=== PATIENT | female | born 1940 | race Caucasian/White ===

== ENCOUNTER 2025-05-31 14:21 | Emergency (ER) | payer MEDICARE, OTHER, SELFPAY ==
[2025-05-31 14:22] VITALS: BP 124/73; PULSE 111; RESP 20; TEMP 36.4; O2SAT 99; BMI 29.7
[2025-05-31 15:22] VITALS: BP 124/82; PULSE 96; RESP 17
[2025-05-31 15:48] LABS: Hematocrit 39.4 % (37-47); Hemoglobin 12.9 g/dL (12.0-15.0); Immature Granulocytes Count 0.060 X10^3/uL (0.0-0.0); Mean Corp Hgb Conc 32.7 g/dL (32-36); Mean Corpuscular Volume 90.8 fL (81-99); Mean Platelet Vol. 10.5 fl (6.2-12.0); NRBC Flagged by Analyzer 0 % (0-5); Platelet Count 262 K/mm3 (150-450); RBC Distribution Width CV 15.5 % (11.6-14.6); RBC Distribution Width SD 51.5 fl (35.1-43.9); Red Blood Count 4.34 M/mm3 (4.2-5.4); White Blood Count 11.8 K/mm3 (4.4-11.0)
[2025-05-31 16:00] VITALS: BP 125/67; PULSE 114; RESP 22; O2SAT 98
[2025-05-31 16:25] LABS: Anion Gap 15 (5-15); BUN 35 mg/dL (4-19); BUN/Creat Ratio 37.6 RATIO (10-20); Calcium,Total 9.3 mg/dL (7.6-11.0); Carbon Dioxide 22.5 mmol/L (21.0-32.0); Chloride 101 mmol/L (98-108); Estimated Creatinine Clearance 53.40 ml/min (50-250); Glucose 220 mg/dL (70-99); Potassium 4.4 mmol/L (3.3-5.1)
[2025-05-31 17:00] VITALS: BP 110/93; PULSE 102; RESP 18; O2SAT 99
[2025-05-31 19:36] VITALS: BP 123/77; PULSE 98; RESP 18; TEMP 36.6; O2SAT 99
== END 2025-05-31 20:06 | disposition home or self-care (01) ==
PROVIDERS: Emergency Provider Emergency Medicine; PCP Internal Medicine; Visit Provider Emergency Medicine
DX: E11.649 Type 2 diabetes mellitus with hypoglycemia without coma (principal); I48.91 Unspecified atrial fibrillation; E11.22 Type 2 diabetes mellitus with diabetic chronic kidney disease; E11.40 Type 2 diabetes mellitus with diabetic neuropathy, unspecified; Z79.4 Long term (current) use of insulin; I12.9 Hypertensive chronic kidney disease with stage 1 through stage 4 chronic kidney disease, or unspecified chronic kidney disease; N18.2 Chronic kidney disease, stage 2 (mild); E03.9 Hypothyroidism, unspecified; R79.89 Other specified abnormal findings of blood chemistry; N32.81 Overactive bladder; Z79.01 Long term (current) use of anticoagulants; Z79.84 Long term (current) use of oral hypoglycemic drugs; Z79.85 Long-term (current) use of injectable non-insulin antidiabetic drugs; Z79.899 Other long term (current) drug therapy; Z79.890 Hormone replacement therapy; Z87.891 Personal history of nicotine dependence
CPT/HCPCS: 80048; 85025; 93005; 96374; 99285; A4216

== ENCOUNTER → 2025-06-01 05:00 | Outpatient (REF) | payer MEDICARE, OTHER, SELFPAY ==
--- OUTSIDE RECORDS SUMMARY | 2025-06-01 04:09 | XMS RPT_ITS | CCD ---
Author Organization [facility] Inform ion Partnership [facility] Care Team Providers Care Php Lamp Developer Name Role Phone Zandra Phan Unavailable Unavailable Jalil Cuevas Unavailable Unavailable Roca, Samuel Unavailable Unavailable Ramon, Martita E Unavailable Unavailable Lisy Pace Primary Care Provider [phone] Zandra Phan RN Unavailable Unavailable Jalil Cuevas RN Unavailable Unavailable Roca PT, Samuel Unavailable Unavailable Ramon NEAL-Cred, Martita E Unavailable Chava Pace MD, Lisy Condon Primary Care Provider Zandra Phan RN Unavailable Unavailable Jalil Cuevas RN Unavailable Unavailable Roca PT, Samuel Unavailable Unavailable Ramon MA-Cred, Martita E Unavailable Unavai talia Roca PT, Samuel Unavailable Unavailable Sanjeev MYERS, Lisy Condon Primary Care Provider Unavailable Primary Care Provider UnavailZandra Eric RN Unavailable Unavailable Jalil Cuevas RN Unavailable Unavailable Roca PT, Samuel Unavailable Unavailable Ramon MA-Cred, Martita E Unavailable Chava Pace MD, Lisy Condon Primary Care Provider Zandra Phan RN Unavailable Unavailable Jalil Cuevas RN Unavailable Unavailable Roca PT, Samuel Unavailable Unavailable Ramon MA-Cred, Martita E Unavailable Chava Pace MD, Lisy Condon Primary Care Provider LISY PACE Primary Care Unavailable NADER NAVARRO Attending Unavailable NADER NAVARRO Attending Unavailable LISY PACE Primary Care Unavailable NADER NAVARRO Attending Unavailable LISY PACE Primary Care Unavailable NADER NAVARRO Attending Unavailable PACE, LISY ALEXX Primary Care Unavailable LE, NADER RAI Attending Unavailable PACE, LISY ALEXX Primary Care Unavailable LE, NADER RAI Attending Unavailable PACE, LISY ALEXX Primary Care Unavailable PACE, LISY ALEXX Primary Care Unavailable LE, NADER RAI Attending Unavailable LE, AYSECHI BONNIE RHODESAC Attending Unavailable PACE, LISY ALEXX Primary Care Unavailable LE, NADER RHODESAC Attending Unavailable PACE, LISY ALEXX Primary Care Unavailable PACE, LISY ALEXX Primary Care Unavailable LE, NADER RAI Attending Unavailable LE, NADER RHODESAC Attending Unavailable PACE, LISY ALEXX Primary Care Unavailable IRFANI, WILL Admitting Unavailable NORBERTO RUBIO Attending Unavailable PACE, LISY ALEXX Primary Care Unavailable LE, NADER RAI Attending Unavailable PACE, LISY ALEXX Primary Care Unavailable PACE, LISY ALEXX Primary Care Unavailable LE, NADER RAI Attending Unavailable PACE, LISY ALEXX Primary Care Unavailable LE, NADER RAI Attending Unavailable PACE, LISY ALEXX Primary Care Unavailable LE, NADER RAI Attending Unavailable ESTIVEN MCFADDEN Referring Unavailable ESTIVEN MCFADDEN Attending Unavailable PACE, LISY ALEXX Primary Care Unavailable LE, NADER RAI Attending Unavailable PACE, LISY ALEXX Primary Care Unavailable PACE, LISY ALEXX Primary Care Unavailable LE, NADER RAI Attending Unavailable APCE, LISY ALEXX Referring Unavailable PACE, LSIY ALEXX Primary Care Unavailable PACE, LISY ALEXX Referring Unavailable PACE, LISY ALEXX Primary Care Unavailable LE, NADER RAI Attending Unavailable PACE, LISY ALEXX Primary Care Unavailable PACE, LISY ALEXX Primary Care Unavailable LE, NADER RAI Attending Unavailable PACE, LISY ALEXX Primary Care Unavailable LE, NADER RAI Attending Unavailable LE, AYSECHI ARRINGTON CARMELOAC Attending Unavailable PACE, LISY ALEXX Primary Care Unavailable PACE, LISY ALEXX Referring Unavailable PACE, LISY ALEXX Attending Unavailable PACE, LISY ALEXX Primary Care Unavailable LE, NADER RAI Attending Unavailable PACE, LISY ALEXX Primary Care Unavailable LE, NADER RHODESAC Attending Unavailable PACE, LISY ALEXX Primary Care Unavailable PACE, LISY ALEXX Referring Unavailable PACE, LISY ALEXX Attending Unavailable PACE, LISY ALEXX Primary Care Unavailable RADHA DE LEON Attending Unavailable PACE, LISY ALEXX Primary Care Unavailable PACE, LISY ALEXX Primary Care Unavailable PACE, LISY ALEXX Attending Unavailable PACE, LISY ALEXX Primary Care Unavailable SANDI HERNANDEZ Attending Unava ilable PACE, LISY ALEXX Primary Care Unavailable PACE, LISY ALEXX Attending Unavailable PACE, LISY ALEXX Primary Care Unavailable PACE, LISY ALEXX Attending Unavailable PACE, LISY ALEXX Attending Unavailable PACE, LISY ALEXX Primary Care Unavailable PACE, LISY ALEXX Attending Unavailable PACE, LISY ALEXX Primary Care Unavailable Unavailable [facility], [place] Primary Care Provider [phone] Depadebayo PABLO, Prasanna Attending Unavailable Deperro OLS, Prasanna Attending Unavailable Deperro OLS, Prasanna Attending Unavailable Deperro OLS, Prasanna Attending Unavailable Deperro BEV, Prasanna Attending Unavailable MARCELA, DOROTHY Primary Care Unavailable JENNIFER WALDROP Attending Unavailable MARCELA, ATHENS Primary Care Unavailable JENNIFER WALDROP Attending Unavailable MARCELA, ATHENS Primary Care Unavailable JENNIFER WALDROP Attending Unavailable DAMIAN LOZA Attending Unavailable [facility], ATHENS Primary Care Unavailable MARCELA, DOROTHY Referring Unavailable KRAIG WRIGHT Attending Unavailable ASHLEIGH ROSS Consulting Unavailable SHANE RODRIGUEZ Attending Unavailable KAROLINA COOPER Admitting Unavailable MARCELA, DOROTHY Primary Care Unavailable YOHANNES BRITTON Consulting Unavailable DENY BARTON Attending Unavailable PATEL CAN Admitting Unavailable MARCELA, DOROTHY Primary Care Unavailable MARCELA, DOROTHY Primary Care Unavailable MARIELOS BLAIR Attending Unavailable MARCELA, DOROTHY Primary Care Unavailable NALLELY ALAS Attending Unavailable MARCELA, ATHENS Primary Care Unavailable NALLELY ALAS Attending Unavailable MARCELA, ATHENS Primary Care Unavailable NALLELY ALAS Attending Unavailable MARCELA, DOROTHY Primary Care Unavailable NALLELY ALAS Attending Unavailable MARCELA, DOROTHY Primary Care Unavailable JENNIFER WALDROP Attending Unavailable MARCELA, DOROTHY Primary Care Unavailable PRISCILA LAGUERRE Attending Unavailable NALLELY ALAS Attending Unavailable NALLELY ALAS Consulting Unavailable HERMAN PEPPER Attending Unavailable FISH MONTES Admitting Unavailable DEMETRIO SHAHID Consulting Unavailable [facility] Unavailable NALLELY ALAS Attending Unavailable [facility] Unavailable EJNNIFER WALDROP Attending Unavailable [facility] Unavailable JENNIFER WALDROP Attending Unavailable ROXY AGUILAR Attending Unavailable NBA GORMAN Consulting Unavailable PATEL CAN Admitting Unavailable [facility] Unavailable BRICE MOTA Attending Unavailable JANET HOUSTON Admitting Unavailable [facility] Unavailable LAUREN CASTANON Referring Unavailable MARIELOS BLAIR Attending Unavailable Allergies Allergy Classification Reported Allergen(s) Allergy Type Date of Onset Reaction(s) Facility Adhesive Tape (2 sources) Adhesive Tape Substance Allergy 09-24-2017 [facility] (20 sources) Adhesive Tape; Translations: [ADHESIVE TAPE] Propensity to adverse reactions to drug 09-24-2017 [facility] (20 sources) Adhesive Tape Drug Allergy 09-24-2017 [facility] Medications Current Medications Medication Drug Class(es) Dates Sig (Normalized) Sig (Original) acetaminophen 325 mg / HYDROcodone bitartrate 5 mg oral tablet (9 sources) Opioid Agonist Start: 10-18-2023 take 1 tablet by mouth every eight hours as needed for pain HYDROcodone-acet aminophen (NORCO) 5-325 mg tablet Indications: Acute pain of right shoulder Take 1 Tab by mouth every 8 hours as needed for Pain 21 Tab 0 10/18/2023 Active acetaminophen 325 mg / oxyCODONE hydrochloride 5 mg oral tablet (1 source) Opioid Agonist Start: 10-19-2020 take 1 tablet by mouth every six hours as needed oxyCODONE-acetam inophen (PERCOCET) 5-325 mg tablet 1 Tab Atropine (1 source) Anticholinergic, Cholinergic Muscarinic Antagonist Start: 10-16-2020 atropine syringe 0.5 mg bisacodyL (DULCOLAX) enteric-coated tablet 5 mg (1 source) Start: 11-10-2023 bisacodyL (DULCOLAX) enteric-coated tablet 5 mg Blood Glucose Monitoring Suppl (Blood Glucose Monitor System) w/Device kit (20 sources) Start: 09-23-2024 Blood Glucose Monitoring Suppl (Blood Glucose Monitor System) w/Device kit Check glucose 3x daily 1 kit 09/23/2024 Suspended Start: 09-23-2024 Blood Glucose Monitoring Suppl (Blood Glucose Monitor System) w/Device kit Check glucose 3x daily 1 kit 09/23/2024 Active calcium carbonate 500 mg chewable tablet (1 source) Start: 10-18-2020 take 1 tablet by mouth every six hours as needed calcium carbonate (TUMS) CHEWABLE tablet 500 mg cephalexin 500 mg oral capsule (9 sources) Cephalosporin Antibacterial Start: 11-12-2023 End: 11-22-2023 take 1 capsule by mouth four times daily cephalexin (KEFLEX) 500 mg capsule Take 1 Cap by mouth four times a day for 10 days 40 Cap 0 11/12/2023 11/22/2023 Active Start: 12-09-2021 take 1 capsule by mo ut twice daily cephalexin (KEFLEX) 500 mg capsule Take 500 mg by mouth two times a day One capsule by mouth twice a day x10 days 0 12/09/2021 Active Continuous Glucose Sensor (FreeStyle Javier 3 Plus Sensor) misc (20 sources) Start: 12-24-2024 Continuous Glu cose Sensor (FreeStyle Javier 3 Plus Sensor) misc 1 each every 15 days. 2 each 12/24/2024 Suspended Start: 12-24-2024 Continuous Glu cose Sensor (FreeStyle Javier 3 Plus Sensor) misc 1 each every 15 days. 2 each 12/24/2024 Active diltiazem (CARDIZEM) 125 mg in 0.9% NaCl 125 ml addEASE (1 source) Start: 10-18-2020 diltiazem (CARDIZEM) 125 mg in 0.9% NaCl 125 ml addEASE doxycycline hyclate 100 mg oral capsule (4 sources) Tetracycline- class Drug Start: 11-12-2023 End: 11-22-2023 take 1 capsule by mouth every twelve hours doxycycline (VIBRAMYCIN) 100 mg capsule Take 1 Cap by mouth every 12 hours for 10 days 20 Cap 0 11/12/2023 11/22/2023 Active Start: 11-11-2023 doxycycline MO NOhydrate (MONODOX) capsule 100 mg empagliflozin 10 mg oral tablet (20 sources) Sodium-Glucose Cotransporter 2 Inhibitor Start: 06-29-2020 End: 08-03-2021 take 1 tablet by mouth once daily before breakfast JARDIANCE 10 mg tablet Indications: Type 2 diabetes mellitus without complication, without long-term current use of insulin (HC CODE) TAKE 1 TABLET BY MOUTH DAILY BEFORE BREAKFAST 30 Tab 11 08/03/2021 Active fluconazole 150 mg oral tablet (1 source) Azole Antifungal Start: 06-09-2021 fluconazole (DIFLUCAN) 150 mg tablet Take 1 Tab by mouth every 3 days 10 Tab 1 06/09/2021 Active FOLIC ACID/MULTIVIT-MIN/L UTEIN (CENTRUM SILVER ORAL) (20 sources) take 1 tablet by mouth once daily FOLIC ACID/MULTIVIT-MIN/ LUTEIN (CENTRUM SILVER ORAL) Take 1 Tab by mouth daily. Active take 1 tablet by mouth once chrissy y FOLIC ACID/MULTIVIT-MIN/LUTEIN (CENTRUM SILVER ORAL) Take 1 Tab by mouth daily. 0 Suspended take 1 tablet by mouth once chrissy y FOLIC ACID/MULTIVIT-MIN/LUTEIN (CENTRUM SILVER ORAL) Take 1 Tab by mouth daily. 0 Active HANDICAP PRIVILEGES TAG/STIC KER (20 sources) Start: 01-15-2023 HANDICAP PRIVI LEGES TAG/STICKER Please issue a Handicap Privileges Tag/Sticker valid from 01/15/2023 to 01/16/2028 1 Each 01/15/2023 Active Start: 01-15-2023 HANDICAP PRIVI LEGES TAG/STICKER Please issue a Handicap Privileges Tag/Sticker valid from 01/15/2023 to 01/16/2028 1 Each 0 01/15/2023 Active Start: 06-09-2021 HANDICAP PRIVI LEGES TAG/STICKER Indications: Spinal stenosis of lumbar region with neurogenic claudication Please issue a Handicap Privileges Tag/Sticker valid from 06/09/21 - 06/09/26. 1 Each 0 06/09/2021 Active ibuprofen 400 mg oral tablet (20 sources) Nonsteroidal Anti-inflammatory Drug take 1 tablet by mouth twice daily ibuprofen (MOTRIN) 400 mg tablet Take 1 Tab by mouth two times a day. 0 Active 3 ml insulin degludec 100 unt/ml / liraglutide 3.6 mg/ml pen injector (4 sources) Insulin Analog, GLP-1 Receptor Agonist insulin degludec-liraglu tide (Xultophy) 100-3.6 UNIT-MG/ML pen Inject 30 Units under the skin daily. Active insulin glargine 100 unt/ml injectable solution (20 sources) Insulin Analog Start: 025 End: inject 26 [IU] by subcutaneous injection once daily insulin glargine (Lantus) 100 UNIT/ML injection Inject 26 Units under the skin Nightly. 03/15/2025 03/15/2026 Active Start: 03-13-2025 End: 03-15-2025 inject 16 [IU] by subcutaneous injection once daily 16 Units, SubCUTAneous, Nightly, First dose (after last modification) on Sat03/13/25 at 2100 Start: 12-05-2024 End: 12-05-2025 inject 32 [IU] by subcutaneous injection once daily insulin glargine (Lantus) 100 UNIT/ML injection Inject 32 Units under the skin Nightly. 10 mL 12 12/05/2024 03/15/2025 Discontinued Start: 12-04-2024 End: 12-05-2024 30 Units, SubCUTAneous, Nigh tly, First dose (after last modification) on Sat12/04/24 at 2100, Autosub for Insulin Degludec (Tresiba) Start: 12-03-2024 End: 12-03-2024 27 Units, SubCUTAneous, Nigh tly, First dose on Sat12/03/24 at 0330, Autosub for Insulin Degludec (Tresiba) Start: 09-24-2024 End: 09-24-2024 inject 30 [IU] by subcutaneous injection once daily 30 Units, SubCUTAneous, Nightly, First dose (after last modification) on Sat09/24/24 at 2100 Start: 09-24-2024 End: 09-24-2024 inject 30 [IU] by subcutaneous injection once daily 30 Units, SubCUTAneous, Nightly, First dose (after last modification) on Sat09/24/24 at 2100 Start: 09-22-2024 End: 09-24-2024 inject 26 [IU] by subcutaneous injection once daily 26 Units, SubCUTAneous, Nightly, First dose (after last modification) on Sat09/22/24 at 2100 Start: 09-21-2024 End: 09-22-2024 inject 24 [IU] by subcutaneous injection once daily 24 Units, SubCUTAneous, Nightly, First dose (after last modification) on 09/21/24 at 2100 Start: 09-19-2024 End: 09-21-2024 inject 20 [IU] by subcutaneous injection once daily 20 Units, SubCUTAneous, Nightly, First dose (after last modification) on 09/19/24 at 2100 Start: 09-18-2024 End: 09-19-2024 inject 15 [IU] by subcutaneous injection once daily 15 Units, SubCUTAneous, Nightly, First dose on Sat09/18/24 at 2100 Start: 09-17-2024 End: 09-17-2024 inject 5 [IU] by subcutaneous injection once 5 Units, SubCUTAneous, Once, On Renee 09/17/24 at 1530, For 1 dose Start: 11-11-2023 insulin glargi ne (LANTUS) Subcutaneous INJ 25 Units Start: 11-10-2023 End: 11-11-2023 inject 20 [IU] by subcutaneous injection once daily 20 Units, Subcutaneous, DAILY, First dose on 11/10/23 at 1910, Until Discontinued Start: 10-20-2020 insulin glargi ne (LANTUS) Subcutaneous INJ 12 Units Start: 10-17-2020 End: 10-20-2020 insulin glargine (LANTUS) Subcutaneous INJ 5 Units isopropyl alcohol 0.7 ml/ml medicated pad (20 sources) Start: 09-23-2024 Alcohol Swabs (Alcohol Prep) 70 % pads 1 Pad 3 times daily. 200 each 2 09/23/2024 Active melatonin 3 mg oral tablet (11 sources) Start: 03-22-2025 End: 04-23-2025 take 1 tablet by mouth once daily as needed for sleep melatonin 3 MG tablet Take 1 tablet (3 mg) by mouth Nightly as needed for sleep. 30 tablet 03/24/2025 04/23/2025 Active Start: 03-13-2025 End: 03-15-2025 Start: 12-03-2024 End: 12-05-2024 take 3 mg by mouth once daily as needed for sleep 3 mg, Oral, Nightly PRN, sleep, Starting on Sat12/03/24 at 1719 Start: 09-21-2024 End: 09-24-2024 take 3 mg by mouth once daily as needed for sleep 3 mg, Oral, Nightly PRN, sleep, Starting on 09/21/24 at 1332 metFORMIN hydrochloride 500 mg oral tablet (20 sources) Biguanide Start: 09-23-2024 End: 09-24-2024 take 2 tablets by mouth twice daily at mealtime metFORMIN (Glucophage) 500 MG tablet Take 2 tablets (1,000 mg) by mouth 2 times daily (with meals). 60 tablet 6 09/23/2024 09/24/2024 Discontinued Start: 09-17-2024 End: 04-22-2025 take 1 tablet by mouth twice daily at mealtime metFORMIN (Glucophage) 500 MG tablet Take 1 tablet (500 mg) by mouth 2 times daily (with meals). 60 tablet 6 09/24/2024 04/22/2025 Active Start: 09-16-2023 take 2 tablets by mo uth twice daily before mealtime metFORMIN XR (GLUCOPHAGE XR) 500 mg SR-tablet 24 Hr Indications: Type 2 diabetes mellitus without complication, without long-term current use of insulin (HC CODE) Take 2 Tab by mouth twice a day before meals 360 Tab 3 09/16/2023 Active Start: 01-15-2023 take 2 tablets by mo uth twice daily before mealtime metFORMIN XR (GLUCOPHAGE XR) 500 mg SR-tablet 24 Hr Indications: Type 2 diabetes mellitus without complication, without long-term current use of insulin (HC CODE) Take 2 Tab by mouth twice a day before meals 360 Tab 3 01/15/2023 Active Start: 06-09-2021 take 2 tablets by mo uth twice daily before mealtime metFORMIN (GLUCOPHAGE XR) 500 mg SR-tablet 24 Hr Indications: Type 2 diabetes mellitus without complication, without long-term current use of insulin (HC CODE) Take 2 Tab by mouth twice a day before meals 360 Tab 3 06/09/2021 Active Start: 07-25-2020 take 2 tablets by mo uth twice daily before mealtime metFORMIN (GLUCOPHAGE XR) 500 mg SR-tablet 24 Hr Indications: Type 2 diabetes mellitus without complication, without long-term current use of insulin (HC CODE) Take 2 Tabs by mouth twice a day before meals 360 Tab 3 07/25/2020 Active Start: 06-17-2019 take 2 tablets by mo uth twice daily before mealtime metFORMIN (GLUCOPHAGE XR) 500 mg SR-tablet 24 Hr Indications: Type 2 diabetes mellitus without complication, without long-term current use of insulin ( ) Take 2 Tabs by mouth twice a day before meals 360 Tab 3 06/17/2019 Active 24 hr metoprolol succinate 50 mg extended release oral tablet (20 sources) beta-Adrenergic Roxi Start: 03-24-2025 End: 03-24-2026 take 1 tablet by mouth twice daily metoprolol succinate XL (Toprol-XL) 50 MG 24 hr tablet Take 1 tablet (50 mg) by mouth 2 times daily. Do not crush or chew. 03/24/2025 03/24/2026 Active Start: 03-21-2025 End: 03-24-2025 take 1 tablet by mouth every eight hours 25 mg, Oral, Every 8 hours, First dose (after last modification) on 03/21/25 at 1700 Start: 03-21-2025 End: 03-24-2025 5 mg, IntraVENous, Every 5 m in PRN, tachycardia, sustained HR >120, message attending prior to administration, Starting on 03/21/25 at 1518 Start: 03-13-2025 End: 05-14-2025 take 25 mg by mouth twice daily 25 mg, Oral, 2 times d aily, First dose on Sat03/20/25 at 2100 Start: 03-13-2025 End: 03-15-2025 Start: 03-12-2025 take 25 mg by mouth once 25 mg , Oral, Once, On Sat03/12/25 at 1635, For 1 dose Start: 01-26-2025 End: 02-02-2025 take 5 mg intravenously every six hours as needed 5 mg, IntraVENous, Every 6 hours PRN, tachycardia, sustained HR >130, Starting on Tu01/26/25 at 1240 Start: 01-25-2025 End: 01-26-2025 5 mg, IntraVENous, Every 5 m in PRN, tachycardia, Starting on 01/25/25 at 2355, For 3 doses Start: 12-03-2024 End: 12-03-2024 5 mg, IntraVENous, Once, On Renee 12/03/24 at 0315, For 1 dose Start: 10-18-2020 End: 10-18-2020 metoprolol tartrate (LOPRESS OR) intravenous solution 2.5 mg ondansetron (ZOFRAN ODT) RAPID DISSOLVING tablet 4 mg (2 sources) Start: 11-10-2023 take 1 tablet by mouth every six hours as needed ondansetron (ZOFRAN ODT) RAPID DISSOLVING tablet 4 mg Start: 10-16-2020 take 1 tablet by [facility] every six hours as needed ondansetron (ZOFRAN ODT) RAPID DISSOLVING tablet 4 mg oxyCODONE hydrochloride 5 mg oral tablet (20 sources) Opioid Agonist Start: 03-24-2025 End: 03-29-2025 take 0.5 tablet by mouth every four hours as needed for pain oxyCODONE (Roxicodone) 5 MG immediate release tablet Indications: Closed fracture of left hip, initial encounter ([facility]) Take 0.5 tablets (2.5 mg) by mouth every 4 hours as needed for moderate pain (4-6) for up to 5 days. 15 tablet 03/24/2025 03/29/2025 Active Start: 03-20-2025 End: 03-24-2025 take 1 tablet by mouth every four hours as needed for pain oxyCODONE (Roxicodone) immediate release tablet 2.5 mg Start: 10-21-2020 take 2 tablets by mo [facility] every six hours as needed oxyCODONE (ROXICODONE) 5 mg tablet Indications: Pain Take 2 Tab by mouth every 6 hours as needed 12 Tab 0 10/21/2020 Active semaglutide (Ozempic) 2 MG/3ML solution pen-injector (20 sources) Start: 12-24-2024 End: 12-24-2025 inject 0.5 mg by subcutaneous injection every week semaglutide (Ozempic) 2 MG/3ML solution pen-injector Inject 0.5 mg under the skin 1 (one) time per week. 3 mL 12/24/2024 12/24/2025 Suspended Start: 12-24-2024 End: 12-24-2025 inject 0.5 mg by subcutaneous injection every week semaglutide (Ozempic) 2 MG/3ML solution pen-injector Inject 0.5 mg under the skin 1 (one) time per week. 3 mL 12/24/2024 12/24/2025 Active terbinafine 250 mg oral tablet (15 sources) Allylamine Antifungal Start: 06-28-2021 take 1 tablet by mouth once daily terbinafine HCL (LAMISIL) 250 mg tablet Take 1 Tab by mouth daily 5 Tab 1 06/28/2021 Active vitamin b12 1 mg oral tablet (5 sources) Vitamin B12 Start: 03-24-2025 End: 04-23-2025 take 1 tablet by mouth once daily cyanocobalamin (Vitamin B-12) 1000 MCG tablet Take 1 tablet (1,000 mcg) by mouth daily. 30 tablet 03/24/2025 04/23/2025 Active Completed/Discontinued Medications Medication Drug Class(es) Dates Sig (Normalized) Sig (Original) acetaminophen 500 mg oral tablet (20 sources) Start: 03-22-2025 End: 03-24-2025 1,000 mg, Oral, 3 times daily, First dose on Sat03/22/25 at 2115, Maximum dose of acetaminophen is 4000 mg from all sources in 24 hours. Start: 03-21-2025 End: 03-21-2025 IntraVENous, Administer over 15 Minutes, As needed, Starting on Sat03/21/25 at 0823, Anesthesia Intraprocedure Start: 03-13-2025 End: 03-15-2025 take 1 tablet by mouth every six hours as needed for pain and fever acetaminophen (Tylenol) tablet 650 mg Start: 01-26-2025 End: 02-02-2025 take 1 tablet by mouth every six hours as needed for pain and fever acetaminophen (Tylenol) tablet 650 mg Start: 01-26-2025 End: 01-26-2025 500 mg, Oral, Once, On Sat at 0235, For 1 dose, Maximum dose of acetaminophen is 4000 mg from all sources in 24 hours. Start: 01-25-2025 End: 01-26-2025 650 mg, Oral, Once, On Sat at 2355, For 1 dose, Maximum dose of acetaminophen is 4000 mg from all sources in 24 hours. Start: 12-03-2024 End: 12-05-2024 take 1 tablet by mouth every six hours as needed for pain and fever acetaminophen (Tylenol) tablet 650 mg Start: 09-18-2024 End: 09-24-2024 take 1 tablet by mouth every six hours as needed for pain and fever acetaminophen (Tylenol) tablet 650 mg Start: 11-10-2023 take 1 tablet by pavel th every four hours as needed acetaminophen (TYLENOL) tablet 650 mg Start: 10-16-2020 take 1 tablet by pavel th every four hours as needed 650 mg, Oral, EVERY 4 HOURS PRN, Starting 10/16/20 at 0257, Until Discontinued, Mild Pain, Headache Start: 11-04-2017 take 2 tablets by mo uth every four hours as needed acetaminophen (TYLENOL) 325 mg tablet Take 2 Tabs by mouth every 4 hours as needed. 60 Tab 0 11/04/2017 Active 20 ml albumin human, halfway 250 mg/ml injection (4 sources) Human Serum Albumin Start: 03-21-2025 End: 03-21-2025 25 g, IntraVENous, at 120 mL/hr, PRN, x 2 doses, Starting on 03/21/25 at 0954, For 2 doses, Recovery (only), Infusion rate depends on indication and clinical situation. In emergencies, may administer as rapidly as necessary to improve clinical condition. After initial volume replacement: 25%: Do not exceed 1 mL/minute (60 mL/hr) in patients with normal plasma volume; 2 to 3 mL/minute (120 to 180 mL/hr) in patients with hypoproteinemia Start: 03-21-2025 End: 03-21-2025 Starting on 03/21/25 at 0 951, For 1 dose, Trung Orellana: act override amLODIPine 5 mg oral tablet (20 sources) Dihydropyridine Calcium Channel Roxi Start: 01-15-2023 End: 12-24-2024 take 5 mg by mouth once daily 5 mg, Oral, Daily, First dose on Sat09/18/24 at 1855 Start: 06-09-2021 take 1 tablet by pavel th once daily amLODIPine (NORVASC) 2.5 mg tablet Take 1 Tab by mouth daily 90 Tab 3 06/09/2021 Active Start: 06-17-2019 End: 10-21-2020 take 1 tablet by mouth once daily in the morning amLODIPine (NORVASC) 2.5 mg tablet Indications: hypertension Take 1 Tab by mouth daily AM 90 Tab 3 06/29/2020 10/21/2020 Discontinued amoxicillin 875 mg / clavulanate 125 mg oral tablet (9 sources) Penicillin-class Antibacterial Start: 02-01-2025 End: 02-01-2025 take 1 tablet by mouth twice daily amoxicillin-clavulanate (Augmentin) 875-125 MG tablet Take 1 tablet by mouth 2 times daily for 11 days. 02/01/2025 02/01/2025 Discontinued (Stop taking at discharge) Start: 06-22-2021 End: 07-02-2021 take 1 tablet by mouth twice daily amoxicillin-potassium clavulanate (AUGMENTIN) 875-125 mg tablet Indications: CELLULITIS / SSTI Take 1 Tab by mouth two times a day for 10 days 20 Tab 0 06/22/2021 07/02/2021 Start: 10-21-2020 take 1 tablet by pavel th every twelve hours amoxicillin-potassium clavulanate (AUGMENTIN) 875-125 mg tablet Indications: CELLULITIS / SSTI Take 1 Tab by mouth every 12 hours 20 Tab 0 10/21/2020 Active Start: 10-21-2020 amoxicillin-po tassium clavulanate (AUGMENTIN) 875-125 mg tablet 1 Tab Start: 03-24-2020 take 1 tablet by pavel th twice daily amoxicillin-potassium clavulanate (AUGMENTIN) 875-125 mg tablet Indications: CELLULITIS / SSTI Take 1 Tab by mouth two times a day 20 Tab 0 03/24/2020 Active ampicillin-sulbactam (Unasyn) 3,000 mg in sodium chloride 0.9 % 100 mL IVPB (Add-[place]) (2 sources) Start: 01-27-2025 End: 02-02-2025 take 3000 mg intravenously every six hours 3,000 mg, IntraVENous, at 200 mL/hr, Administer over 30 Minutes, Every 6 hours, First dose on Sat01/27/25 at 1315, For 26 doses, ADD-[place] bag, Suspected Indication (Select all that apply): Surgical Site Infection apixaban 5 mg oral tablet (20 sources) Factor Xa Inhibitor Start: 03-21-2025 End: 03-24-2025 take 5 mg by mouth twice daily 5 mg, Oral, 2 times daily, First dose on Sat03/21/25 at 2100, Anticoagulant Start: 03-13-2025 End: 03-15-2025 take 5 mg by mouth twice daily 5 mg, Oral, 2 times nikia ly, First dose on 03/13/25 at 0020, Anticoagulant Start: 01-26-2025 End: 02-02-2025 take 5 mg by mouth twice daily 5 mg, Oral, 2 times nikia ly, First dose on Tu01/26/25 at 1000, Anticoagulant Start: 12-03-2024 End: 12-05-2024 take 5 mg by mouth twice daily 5 mg, Oral, 2 times nikia ly, First dose on [place]ene[place] 12/03/24 at 0900, Anticoagulant Start: 10-07-2020 End: 09-24-2024 take 5 mg by mouth twice daily 5 mg, Oral, 2 times nikia ly, First dose on Sat09/18/24 at 2100, Anticoagulant aspirin 81 mg delayed release oral tablet (20 sources) Platelet Aggregation Inhibitor, Nonsteroidal Anti-inflammatory Drug Start: 10-16-2020 End: 10-18-2020 take 81 mg by mouth once daily 81 mg, Oral, DAILY, First dose on Sat10/16/20 at 0900, Until Discontinued atenolol 25 mg oral tablet (20 sources) beta-Adrenergic Roxi Start: 12-05-2024 End: 03-15-2025 take 1 tablet by mouth twice daily atenolol (Tenormin) 25 MG tablet Take 1 tablet (25 mg) by mouth 2 times daily. 60 tablet 12/05/2024 03/15/2025 Discontinued (Stop taking at discharge) Start: 09-18-2024 End: 09-24-2024 take 50 mg by mouth once daily 50 mg, Oral, Daily, Fir st dose on Sat09/18/24 at 1855 Start: 11-10-2023 take 50 mg by mouth twice chrissy y 50 mg, Oral, TWO TIMES A DAY, First dose on Sat11/10/23 at 2000, Until Discontinued Start: 10-17-2020 take 1 tablet by pavel th every twelve hours atenoloL (TENORMIN) 25 mg tablet Indications: hypertension , Ventricular Rate Control in Atrial Fibrillation Take 1 Tab by mouth every 12 hours 60 Tab 1 10/21/2020 Active Start: 06-17-2019 End: 12-05-2024 take 50 mg by mouth twice daily 50 mg, Oral, 2 times d kerryy First dose on [place]ene[place] 12/03/24 at 0315 atorvastatin 20 mg oral tablet (20 sources) HMG-CoA Reductase Inhibitor Start: 09-16-2023 End: 02-02-2025 take 40 mg by mouth once daily 40 mg, Oral, Daily, First dose on [facility] 12/03/24 at 0900 Start: 06-17-2019 End: 03-24-2025 take 20 mg by mouth once daily 20 mg, Oral, Nightly, F irst dose on [facility] 03/20/25 at 2100 5 ml bupivacaine hydrochloride 5 mg/ml injection (2 sources) Amide Local Anesthetic Start: 03-20-2025 End: 03-20-2025 10 mL, Other, Once, On [facility] 03/20/25 at 1400, For 1 dose, Infiltration calcium chloride 0.0014 meq/ml / potassium chloride 0.004 meq/ml / sodium chloride 0.103 meq/ml / sodium lactate 0.028 meq/ml injectable solution (13 sources) Start: 03-21-2025 End: 03-21-2025 500 mL, IntraVENous, at 250 mL/hr, Administer over 2 Hours, Once, On [place] 03/21/25 at 1845, For 1 dose Start: 03-21-2025 End: 03-22-2025 take 75 mL intravenously every hour 75 mL/hr, IntraVENous, Continuous, Starting on [place] 03/21/25 at 1845, For 1 day Start: 03-21-2025 End: 03-21-2025 IntraVENous, Continuous PRN, Starting on [place] 03/21/25 at 0746, Anesthesia Intraprocedure Start: 03-20-2025 End: 03-20-2025 1,000 mL, IntraVENous, at 50 0 mL/hr, Administer over 2 Hours, Once, On [facility] 03/20/25 at 1515, For 1 dose Start: 09-17-2024 End: 09-17-2024 1,000 mL, IntraVENous, at 50 0 mL/hr, Administer over 2 Hours, Once, On [facility] 09/17/24 at 1310, For 1 dose Start: 10-16-2020 End: 10-16-2020 1,000 mL, Intravenous, ONCE, 1 dose, [place] 10/16/20 at 0305, at 500 mL/hr ceFAZolin 1000 mg injection (2 sources) Cephalosporin Antibacterial Start: 03-21-2025 End: 03-21-2025 IntraVENous, As needed, Starting on Sat03/21/25 at 0800, Anesthesia Intraprocedure Start: 11-11-2023 ceFAZolin (ANC EF) 2 g in Dextrose 50 ml IVPB (PREMIX) ceFAZolin (Ancef) 2,000 mg in sodium chloride 0.9 % 100 mL IVPB (2 sources) Start: 03-21-2025 End: 03-21-2025 take 2000 mg intravenously every eight hours 2,000 mg, IntraVENous, at 200 mL/hr, Administer over 30 Minutes, Every 8 hours, First dose on Sat03/21/25 at 1600, For 24 hours, Phase II/On Unit, Mini-Bag Plus bag, Suspected Indication (Select all that apply): Surgical Prophylaxis cefepime 2000 mg injection (2 sources) Cephalosporin Antibacterial Start: 11-11-2023 End: 11-11-2023 2 g, Intravenous, at 12.5 mL/hr, Administer over 240 Minutes, EVERY 12 HOURS, First dose on Sat11/11/23 at 0900, Until Discontinued, Indications: CELLULITIS / SSTI Start: 10-19-2020 End: 10-21-2020 cefepime (MAXIPIME) 1 g in D 5W 50 ml DUPLEX cefTRIAXone 2000 mg injection (2 sources) Cephalosporin Antibacterial Start: 11-10-2023 End: 11-10-2023 cefTRIAXone (ROCEPHIN) 2 g in D5W 50 ml IVPB (PREMIX) Start: 10-16-2020 End: 10-18-2020 2 g, Intravenous, at 100 mL/ hr, Administer over 30 Minutes, DAILY, First dose on Sat10/16/20 at 0900, Until Discontinued, Indications: CELLULITIS / SSTI cefTRIAXone (Rocephin) 1,000 mg in sodium chloride 0.9 % 50 mL IVPB Mini-Bag Plus (10 sources) Start: 01-26-2025 End: 01-26-2025 1,000 mg, IntraVENous, at 10 0 mL/hr, Administer over 30 Minutes, Once, On Sat01/26/25 at 0000, For 1 dose, Mini-Bag Plus bag, Suspected Indication (Select all that apply): Urinary Tract Infection Start: 12-03-2024 End: 12-05-2024 1,000 mg, IntraVENous, at 10 0 mL/hr, Administer over 30 Minutes, Every 24 hours, First dose on Sat12/03/24 at 2200, Mini-Bag Plus bag, Suspected Indication (Select all that apply): Urinary Tract Infection Start: 12-02-2024 End: 12-02-2024 1,000 mg, IntraVENous, at 10 0 mL/hr, Administer over 30 Minutes, Once, On Sat12/02/24 at 2225, For 1 dose, Mini-Bag Plus bag, Suspected Indication (Select all that apply): Urinary Tract Infection Start: 09-19-2024 End: 09-21-2024 1,000 mg, IntraVENous, at 10 0 mL/hr, Administer over 30 Minutes, Every 24 hours, First dose on Sat09/19/24 at 1800, Mini-Bag Plus bag, Suspected Indication (Select all that apply): Urinary Tract Infection Start: 09-18-2024 End: 09-18-2024 1,000 mg, IntraVENous, at 10 0 mL/hr, Administer over 30 Minutes, Once, On Sat09/18/24 at 1735, For 1 dose, Mini-Bag Plus bag, Suspected Indication (Select all that apply): Urinary Tract Infection cefTRIAXone (Rocephin) 2,000 mg in sodium chloride 0.9 % 50 mL IVPB Mini-Bag Plus (2 sources) Start: 01-26-2025 End: 01-26-2025 2,000 mg, IntraVENous, at 100 mL/hr, Administer over 30 Minutes, Every 24 hours, First dose on Sat01/26/25 at 1100, For 5 days, Mini-Bag Plus bag, Suspected Indication (Select all that apply): Skin and Soft Tissue Infection cholecalciferol 0.025 mg oral tablet (2 sources) Vitamin D Start: 12-05-2024 End: 12-05-2024 take 2000 [IU] by mouth once daily 2,000 Units, Oral, Daily, First dose on Sat12/05/24 at 0900 cholecalciferol 9.52 unt/ml / glucose 357 mg/ml oral gel (12 sources) Vitamin D Start: 03-20-2025 End: 03-24-2025 Start: 03-13-2025 End: 03-15-2025 Start: 01-26-2025 End: 02-02-2025 Start: 12-03-2024 End: 12-05-2024 Start: 09-18-2024 End: 09-24-2024 15 g, Oral, As needed, low b lood sugar, Starting on Sat09/18/24 at 1854, If blood glucose less than 50 mg/dL and patient ALERT and NOT NPO, give 2 tubes glucose gel. If blood glucose less than 70 mg/dL and patient ALERT and NOT NPO, give 1 tube glucose gel. Repeat blood glucose in 15 minutes. If blood glucose is less than 70 mg/dL, repeat treatment and recheck blood glucose in 15 minutes x2 and notify provider. Start: 09-17-2024 End: 09-17-2024 15 g, Oral, As needed, low b lood sugar, Starting on [place] 09/17/24 at 1309, If blood glucose less than 50 mg/dL and patient ALERT and NOT NPO, give 2 tubes glucose gel. If blood glucose less than 70 mg/dL and patient ALERT and NOT NPO, give 1 tube glucose gel. Repeat blood glucose in 15 minutes. If blood glucose is less than 70 mg/dL, repeat treatment and recheck blood glucose in 15 minutes x2 and notify provider. ciprofloxacin 250 mg oral tablet (15 sources) Quinolone Antimicrobial End: 02-02-2025 take 1 tablet by mouth twice daily ciprofloxacin (Cipro) 250 MG tablet Take 250 mg by mouth 2 times daily. 02/02/2025 Discontinued (Stop taking at discharge) 50 ml clindamycin 12 mg/ml injection (1 source) Lincosamide Antibacterial Start: 10-16-2020 End: 10-17-2020 clindamycin (CLEOCIN) 600 mg in D5W 50 ml IVPB (premix) 1 ml dexamethasone phosphate 10 mg/ml injection (1 source) Corticosteroid Start: 03-21-2025 End: 03-21-2025 IntraVENous, As needed, Starting on 03/21/25 at 0750, Anesthesia Intraprocedure dexmedeTOMIDine HCl in NaCl (Precedex) injection (1 source) Start: 03-21-2025 End: 03-21-2025 IntraVENous, As needed, Starting on Sat03/21/25 at 0747, Anesthesia Intraprocedure docusate sodium 50 mg / sennosides, halfway 8.6 mg oral tablet (1 source) Start: 10-16-2020 take 2 tablets by mouth at bedtime 2 Tab, Oral, AT BEDTIME, First dose on 10/16/20 at 2200, Until Discontinued 0.5 ml dulaglutide 3 mg/ml auto-injector (20 sources) GLP-1 Receptor Agonist Start: 09-16-2023 End: 11-12-2023 dulaglutide (TRULICITY) 1.5 mg/0.5 mL Pen Injector injection Indications: Type 2 diabetes mellitus without complication, without long-term current use of insulin (HC CODE) Inject 0.5 mL subcutaneously every 7 days 2 mL 09/16/2023 11/12/2023 Discontinued Start: 01-15-2023 dulaglutide (T RULICITY) 0.75 mg/0.5 mL Pen Injector Indications: Type 2 diabetes mellitus without complication, without long-term current use of insulin (HC CODE) Inject 0.5 mL subcutaneously every 7 days 2 mL 01/15/2023 Active 1 ml ePHEDrine sulfate 50 mg/ml injection (3 sources) alpha-Adrenergic Agonist, beta-Adrenergic Agonist, Norepinephrine Releasing Agent Start: 03-21-2025 End: 03-21-2025 inject 25 mg by intramuscular injection once 25 mg, IntraMUSCular, Once, On 03/21/25 at 1100, For 1 dose, Recovery (only) Start: 03-21-2025 End: 03-21-2025 IntraVENous, As needed, Star ting on 03/21/25 at 0809, Anesthesia Intraprocedure 1 ml EPINEPHrine 1 mg/ml injection (1 source) alpha-Adrenergic Agonist, beta-Adrenergic Agonist, Catecholamine Start: 03-21-2025 End: 03-21-2025 Spinal, As needed, Starting on 03/21/25 at 0800, Anesthesia Intraprocedure ergocalciferol 1.25 mg oral capsule (20 sources) Provitamin D2 Compound Start: 10-01-2024 End: 11-13-2024 take 1 capsule by mouth every week ergocalciferol (Vitamin D2) 1.25 MG (87501 UT) capsule Take 1 capsule (1.25 mg) by mouth 1 (one) time per week for 7 doses. 4 capsule 1 10/01/2024 11/13/2024 Start: 09-24-2024 End: 09-24-2024 take 1.25 mg by mouth every week 1.25 mg, Oral, Weekly , First dose on Sat09/24/24 at 0900, For 8 doses fenofibrate 160 mg oral tablet (20 sources) Peroxisome Proliferator Receptor alpha Agonist Start: 11-11-2023 take 145 mg by mouth once daily 145 mg, Oral, DAILY, First dose on Sat11/11/23 at 0900, Until Discontinued Start: 10-16-2020 take 145 mg by mouth once daily 145 mg, Oral, DAILY, First dose on Sat10/16/20 at 0900, Until Discontinued Start: 06-17-2019 End: 02-02-2025 160 mg, Oral, Daily, First d ose on Sat12/03/24 at 0900, Substituted for Fenofibrate (Non-Formulary Dose). fluticasone propionate 0.05 mg/actuat metered dose nasal spray (20 sources) Corticosteroid Start: 10-16-2020 take 2 spray(s) nasal route once daily 2 Amma, Each Nostril, DAILY, First dose on Sat10/16/20 at 0900, Until Discontinued gabapentin 300 mg oral capsule (20 sources) Anti-epileptic Agent Start: 03-20-2025 End: 03-24-2025 take 300 mg by mouth twice daily 300 mg, Oral, 2 times daily, First dose on Sat03/20/25 at 2100 Start: 03-13-2025 End: 03-15-2025 take 300 mg by mouth twice daily 300 mg, Oral, 2 times daily, First dose on Sat03/13/25 at 0020 Start: 01-26-2025 End: 02-02-2025 take 300 mg by mouth twice daily 300 mg, Oral, 2 times daily, First dose on Sat01/26/25 at 1000 Start: 12-03-2024 End: 12-05-2024 take 300 mg by mouth twice daily 300 mg, Oral, 2 times daily, First dose on Sat12/03/24 at 2100 Start: 12-02-2024 take 300 mg by mouth once 300 mg, Oral, Once, On Sat12/02/24 at 2350, For 1 dose Start: 02-14-2021 End: 02-13-2025 take 300 mg by mouth twice daily 300 mg, Oral, 2 times daily, First dose on Sat09/18/24 at 2100 Start: 05-03-2020 take 1 capsule by mo [facility] three times daily gabapentin (NEURONTIN) 300 mg capsule Indications: Neuropathic Pain , Postoperative Acute Pain Take 1 Cap by mouth three times a day 270 Cap 1 05/03/2020 Active Start: 06-17-2019 take 1 capsule by mo ut three times daily gabapentin (NEURONTIN) 300 mg capsule Indications: Neuropathic Pain , Postoperative Acute Pain Take 1 Cap by mouth three times a day 270 Cap 1 06/17/2019 Active gadopiclenol (Vueway) injection 10 mL (2 sources) Start: 01-27-2025 End: 01-27-2025 take 10 mL intravenously once as needed 10 mL, IntraVENous, IMG once PRN, contrast, Starting on Sat01/27/25 at 1832, For 1 dose gadopiclenol (Vueway) injection 9.5 mL (2 sources) Start: 01-26-2025 End: 01-26-2025 take 9.5 mL intravenously once as needed 9.5 mL, IntraVENous, IMG once PRN, contrast, Starting on Sat01/26/25 at 1633, For 1 dose glimepiride 4 mg oral tablet (20 sources) Sulfonylurea Start: 09-23-2024 End: 09-24-2024 take 1 tablet by mouth twice daily glimepiride (Amaryl) 4 MG tablet Take 1 tablet (4 mg) by mouth 2 times daily. 60 tablet 3 09/23/2024 09/24/2024 Discontinued (Stop taking at discharge) Start: 09-16-2023 take 1 tablet by pavel th twice daily glimepiride (AMARYL) 4 mg tablet Indications: Type 2 diabetes mellitus without complication, without long-term current use of insulin (HC CODE) Take 1 Tab by mouth two times a day 180 Tab 3 09/16/2023 Active Start: 01-15-2023 take 1 tablet by pavel th twice daily glimepiride (AMARYL) 4 mg tablet Indications: Type 2 diabetes mellitus without complication, without long-term current use of insulin (HC CODE) Take 1 Tab by mouth two times a day 180 Tab 3 01/15/2023 Active Start: 01-02-2022 take 1 tablet by pavel th twice daily glimepiride (AMARYL) 4 mg tablet Indications: Type 2 diabetes mellitus without complication, without long-term current use of insulin (HC CODE) Take 1 Tab by mouth two times a day 180 Tab 3 01/02/2022 Active Start: 02-14-2021 take 1 tablet by pavel th twice daily glimepiride (AMARYL) 4 mg tablet Indications: Type 2 diabetes mellitus without complication, without long-term current use of insulin (HC CODE) Take 1 Tab by mouth two times a day 180 Tab 3 02/14/2021 Active Start: 01-15-2020 take 1 tablet by pavel th twice daily glimepiride (AMARYL) 4 mg tablet Indications: Type 2 diabetes mellitus without complication, without long-term current use of insulin (HC CODE) Take 1 Tab by mouth two times a day 180 Tab 3 01/15/2020 Active End: 10-15-2024 take 1 tablet by mouth once daily before breakfast glimepiride (Amaryl) 4 MG tablet Take 4 mg by mouth every morning (before breakfast). 09/24/2024 Discontinued (Stop taking at discharge) glucagon (rdna) 1 mg injecti on (14 sources) Antihypoglycemic Agent Start: 03-20-2025 End: 03-24-2025 Start: 03-13-2025 End: 03-15-2025 Start: 01-26-2025 End: 02-02-2025 Start: 12-03-2024 End: 12-05-2024 Start: 09-18-2024 End: 09-24-2024 1 mg, IntraMUSCular, PRN, lo w blood sugar, Blood glucose less than 70 mg/dL and patient NOT ALERT or NPO and does not have IV access., Starting on Sat09/18/24 at 1854, After administration, attempt intravenous access and start D5W at 100 mL/hr. Repeat blood glucose in 15 minutes x2 and notify provider. Start: 09-17-2024 End: 09-17-2024 1 mg, IntraMUSCular, PRN, lo w blood sugar, Blood glucose less than 70 mg/dL and patient NOT ALERT or NPO and does not have IV access., Starting on Sat09/17/24 at 1309, After administration, attempt intravenous access and start D5W at 100 mL/hr. Repeat blood glucose in 15 minutes x2 and notify provider. Start: 11-10-2023 1 mg, Subcutan eous, PRN- NEEDED, Starting on 11/10/23 at 1901, Until Discontinued, hypoglycemia Start: 10-16-2020 1 mg, Subcutan eous, PRN- NEEDED, Starting 10/16/20 at 0257, Until Discontinued, hypoglycemia 50 ml glucose 50 mg/ml injec tion (20 sources) Start: 03-20-2025 End: 03-24-2025 Start: 03-20-2025 End: 03-24-2025 Start: 03-13-2025 End: 03-15-2025 Start: 03-13-2025 End: 03-15-2025 Start: 01-26-2025 End: 02-02-2025 Start: 01-26-2025 End: 02-02-2025 Start: 12-03-2024 End: 12-05-2024 Start: 12-03-2024 End: 12-05-2024 Start: 09-18-2024 End: 09-24-2024 100 mL/hr, IntraVENous, PRN, Blood sugar less than 70mg/dL, Starting on Sat09/18/24 at 1854, Start infusion following administration of dextrose 50% or glucagon. Start: 09-18-2024 End: 09-24-2024 12.5 g, IntraVENous, PRN, lo w blood sugar, Blood glucose less than 70 mg/dL and patient NOT ALERT or NPO., Starting on Sat09/18/24 at 1854, If patient does not respond within 5 minutes, repeat dose x1. Start D5W at 100 mL/hour until ordering provider can be reached. Repeat blood glucose in 15 minutes. If blood glucose is less than 70 mg/dL, repeat treatment and recheck blood glucose in 15 minutes x2. If using Glucostabilizer, dose as instructed per system. Start: 09-17-2024 End: 09-17-2024 12.5 g, IntraVENous, PRN, lo w blood sugar, Blood glucose less than 70 mg/dL and patient NOT ALERT or NPO., Starting on [place] 09/17/24 at 1309, If patient does not respond within 5 minutes, repeat dose x1. Start D5W at 100 mL/hour until ordering provider can be reached. Repeat blood glucose in 15 minutes. If blood glucose is less than 70 mg/dL, repeat treatment and recheck blood glucose in 15 minutes x2. If using Glucostabilizer, dose as instructed per system. Start: 09-17-2024 End: 09-17-2024 100 mL/hr, IntraVENous, PRN, Blood sugar less than 70mg/dL, Starting on [place] 09/17/24 at 1309, Start infusion following administration of dextrose 50% or glucagon. Start: 11-10-2023 15 g Carb, Ora l, PRN- NEEDED, Starting on 11/10/23 at 1901, Until Discontinued, other, hypoglycemia Start: 11-10-2023 5-12.5 g, IV P ush, PRN- NEEDED, Starting on 11/10/23 at 1901, Until Discontinued, other, hypoglycemia Start: 10-16-2020 37.5 g, Oral, PRN- NEEDED, Starting 10/16/20 at 0257, Until Discontinued, other, hypoglycemia Start: 10-16-2020 5-12.5 g, IV P ush, PRN- NEEDED, Starting 10/16/20 at 0257, Until Discontinued, other, hypoglycemia 1 ml HYDROmorphone hydrochloride 1 mg/ml cartridge (2 sources) Opioid Agonist Start: 03-22-2025 End: 03-24-2025 take 0.25 mg intravenously every four hours as needed 0.25 mg, IntraVENous, Every 4 hours PRN, breakthrough, Starting on Sat03/22/25 at 2112, If oral and IV narcotics ordered, use oral first and only use IV if oral is ineffective or cannot take oral. Do Not give oral and IV within 1 hour of each other unless specifically ordered. 3 ml insulin degludec 100 unt/ml pen injector (20 sources) Insulin Analog Start: 09-24-2024 End: 09-24-2025 insulin degludec (Tresiba FlexTouch) 100 UNIT/ML injection Inject 30 Units under the skin Nightly. 30 mL 3 09/24/2024 12/05/2024 Discontinued (Stop taking at discharge) Start: 09-23-2024 End: 09-23-2024 insulin degludec (Tresiba Fl exTouch) 100 UNIT/ML injection Inject 26 Units under the skin Nightly. 3 mL 12 09/23/2024 09/23/2024 Discontinued (Stop taking at discharge) insulin lispro 100 unt/ml injectable solution (20 sources) Insulin Analog Start: 01-26-2025 End: 02-01-2026 inject 8 [IU] by subcutaneous injection three times daily at mealtime Insulin Lispro (Humalog) 100 UNIT/ML solution injection Inject 8 Units under the skin 3 times daily (with meals). 02/01/2025 03/15/2025 Discontinued (Stop taking at discharge) Start: 01-26-2025 End: 01-28-2025 inject 5 [IU] by subcutaneous injection three times daily at mealtime 5 Units, SubCUTAneous, 3 times daily with meals, First dose on Sat01/26/25 at 1200, Give 5 units prior to breakfast, 5 units prior to lunch, and 5 units prior to dinner, only when tray is in room and patient eating 50% of meal. If meal intake is uncertain then immediate post meal injection is acceptable. Give prior to bolus tube feedings. Hold if patient is NPO or if pre-meal blood glucose is less than or equal to 70 mg/dL. Start: 12-05-2024 End: 12-05-2025 inject 12 [IU] by subcutaneous injection three times daily at mealtime Insulin Lispro (Humalog) 100 UNIT/ML solution injection Inject 12 Units under the skin 3 times daily (with meals). 10 mL 12 12/05/2024 12/24/2024 Discontinued (Med list cleanup) Start: 12-03-2024 End: 12-05-2024 inject 6 [IU] by subcutaneous injection three times daily at mealtime 0-6 Units, SubCUTAneous, 3 times daily with meals, First dose on Sat12/03/24 at 1700, Low dose sliding scale 0-150 give scheduled units - no extra 151-200 give 1 extra unit 201-250 give 2 extra units 251-300 give 3 extra units 301-350 give 4 extra units 351-400 give 5 extra units 401-450 give 6 extra units units and call office Start: 12-03-2024 End: 12-04-2024 inject 8 [IU] by subcutaneous injection three times daily at mealtime 8 Units, SubCUTAneous, 3 times daily with meals, First dose on Sat12/03/24 at 1700 Start: 12-03-2024 inject 6 [IU] by sub cutaneous injection once 6 Units, SubCUTAneous, Once, On Sat12/03/24 at 0330, For 1 dose Start: 09-21-2024 End: 09-24-2024 inject 16 [IU] by subcutaneous injection three times daily at mealtime 16 Units, SubCUTAneous, 3 times daily with meals, First dose (after last modification) on Sat09/22/24 at 1700 Start: 09-21-2024 End: 09-22-2024 inject 10 [IU] by subcutaneous injection three times daily at mealtime 10 Units, SubCUTAneous, 3 times daily with meals, First dose on Sat09/21/24 at 1700 Start: 09-21-2024 End: 09-21-2024 inject 10 [IU] by subcutaneous injection three times daily at mealtime 10 Units, SubCUTAneous, 3 times daily with meals, First dose (after last modification) on Sat09/21/24 at 1200 Start: 09-19-2024 End: 09-21-2024 inject 8 [IU] by subcutaneous injection three times daily at mealtime 8 Units, SubCUTAneous, 3 times daily with meals, First dose (after last modification) on Sat09/19/24 at 0800 Start: 11-12-2023 End: 11-12-2023 insulin lispro (HumaLOG) inj ection 20 Units Start: 11-11-2023 insulin lispro (HumaLOG) injection 3 Units Start: 11-10-2023 End: 11-10-2023 insulin lispro (HumaLOG) inj ection 11 Units Start: 11-10-2023 0-9 Units, Sub cutaneous, THREE TIMES A DAY WITH MEALS, HS & 0200, First dose on 11/10/23 at 2200, Until Discontinued Start: 10-16-2020 0-5 Units, Sub cutaneous, THREE TIMES A DAY WITH MEALS AND AT BEDTIME, First dose on 10/16/20 at 0800, Until Discontinued Insulin Lispro (Humalog) injection 0-12 Units (2 sources) Start: 03-22-2025 End: 03-24-2025 Insulin Lispro (Humalog) injection 0-12 Units Insulin Lispro (Humalog) injection 0-6 Units (2 sources) Start: 03-13-2025 End: 03-15-2025 Insulin Lispro (Humalog) injection 0-6 Units insulin, regular, human 100 unt/ml injectable solution (2 sources) Insulin Start: 09-17-2024 End: 09-17-2024 inject 9 [IU] by subcutaneous injection once 9 Units (rounded from 9.07 Units = 0.1 Units/kg 90.7 kg), SubCUTAneous, Once, On [facility] 09/17/24 at 1310, For 1 dose iopamidol (Isovue-370) 76 % injection 75 mL (2 sources) Start: 01-26-2025 End: 01-26-2025 take 75 mL intravenously once as needed 75 mL, IntraVENous, IMG once PRN, contrast, Starting on Sat01/26/25 at 0134, For 1 dose ketamine 10 mg/ml injectable solution (1 source) General Anesthetic Start: 03-21-2025 End: 03-21-2025 IntraVENous, As needed, Starting on Sat03/21/25 at 0823, Anesthesia Intraprocedure ketamine 22.5 mg in sodium chloride 0.9 % 50 mL ivpb (2 sources) Start: 03-20-2025 End: 03-20-2025 22.5 mg (rounded from 22.675 mg = 0.25 mg/kg 90.7 kg), IntraVENous, Once, On Sat03/20/25 at 1200, For 1 dose, Give over 20 min Lactobacillus (20 sources) Start: 03-20-2025 End: 03-24-2025 take 4 tablets by mouth once daily 4 tablet, Oral, Daily, First dose on [facility] 03/20/25 at 1830 Start: 02-02-2025 take 4 tablets by mo [facility] once daily Lactobacillus 0.05-0.05 MG tablet Take 4 tablets by mouth daily. 02/02/2025 Suspended Start: 02-02-2025 take 4 tablets by mo [facility] once daily Lactobacillus 0.05-0.05 MG tablet Take 4 tablets by mouth daily. 02/02/2025 Active Start: 01-26-2025 End: 02-02-2025 take 4 tablets by mouth once daily 4 tablet, Oral, Daily, First dose on Sat01/26/25 at 1115 levothyroxine sodium 0.025 mg oral tablet (20 sources) l-Thyroxine Start: 03-21-2025 End: 03-24-2025 take 25 ug by mouth once daily before breakfast 25 mcg, Oral, Daily before breakfast, First dose on Sat03/21/25 at 0600 Start: 03-13-2025 End: 03-15-2025 take 112 ug by mouth once daily before breakfast 112 mcg, Oral, Daily before breakfast, First dose on 03/13/25 at 0600 Start: 01-27-2025 End: 02-02-2025 take 112 ug by mouth once daily before breakfast 112 mcg, Oral, Daily before breakfast, First dose on Sat01/27/25 at 0600 Start: 12-03-2024 End: 12-05-2024 take 112 ug by mouth once daily before breakfast 112 mcg, Oral, Daily before breakfast, First dose on Renee 12/03/24 at 0600 Start: 09-19-2024 End: 09-24-2024 take 112 ug by mouth once daily before breakfast 112 mcg, Oral, Daily before breakfast, First dose on 09/19/24 at 0600 Start: 12-16-2023 take 1 tablet by pavel th once daily before breakfast levothyroxine (SYNTHROID) 112 mcg tablet Indications: Other specified hypothyroidism Take 1 Tab by mouth daily before breakfast 90 Tab 3 12/16/2023 Active Start: 01-15-2023 take 1 tablet by pavel th once daily before breakfast levothyroxine (SYNTHROID) 112 mcg tablet Indications: Other specified hypothyroidism Take 1 Tab by mouth daily before breakfast 90 Tab 3 01/15/2023 Active Start: 01-02-2022 take 1 tablet by pavel th once daily before breakfast levothyroxine (SYNTHROID) 112 mcg tablet Indications: Other specified hypothyroidism Take 1 Tab by mouth daily before breakfast 90 Tab 3 01/02/2022 Active Start: 02-14-2021 take 1 tablet by pavel th once daily before breakfast levothyroxine (SYNTHROID) 112 mcg tablet Indications: Other specified hypothyroidism Take 1 Tab by mouth daily before breakfast 90 Tab 3 02/14/2021 Active Start: 06-29-2020 take 1 tablet by pavel th once daily before breakfast levothyroxine (SYNTHROID) 100 mcg tablet Indications: Other specified hypothyroidism Take 1 Tab by mouth daily before breakfast 90 Tab 3 06/29/2020 Active Start: 06-17-2019 take 1 tablet by pavel th once daily before breakfast levothyroxine (SYNTHROID) 100 mcg tablet Indications: Other specified hypothyroidism Take 1 Tab by mouth daily before breakfast 90 Tab 3 06/17/2019 Active levothyroxine (T irosint) 112 MCG capsule Take by mouth every morning (before breakfast). Active 10 ml lidocaine hydrochloride 20 mg/ml injection (20 sources) Antiarrhythmic, Amide Local Anesthetic Start: 03-21-2025 End: 03-21-2025 IntraVENous, As needed, Starting on 03/21/25 at 0750, Anesthesia Intraprocedure Start: 03-20-2025 End: 03-20-2025 10 mL, Infiltration, Once, O n 03/20/25 at 1400, For 1 dose Start: 02-23-2025 End: 03-15-2025 lidocaine (Uro-Jet) 2 % gel Start: 10-02-2024 End: 02-02-2025 lidocaine (Uro-Jet) 2 % gel Start: 03-05-2024 End: 03-05-2024 apply 1 dose topically once Topical, ONCE, 1 dose, On [facility] 03/05/24 at 1335 Start: 01-30-2024 End: 01-30-2024 apply 1 dose topically once Topical, ONCE, 1 dose, On [facility] 01/30/24 at 1400 Start: 01-23-2024 End: 01-23-2024 apply 1 dose topically once Topical, ONCE, 1 dose, On [facility] 01/23/24 at 1345 Start: 01-09-2024 End: 01-09-2024 Lidocaine (ANECREAM) 4 % top ical cream Start: 12-19-2023 End: 12-19-2023 Lidocaine (ANECREAM) 4 % top ical cream Start: 12-12-2023 End: 12-12-2023 Lidocaine (ANECREAM) 4 % top ical cream Start: 11-25-2023 End: 11-25-2023 Lidocaine (ANECREAM) 4 % top ical cream Start: 11-14-2023 End: 11-14-2023 Lidocaine (ANECREAM) 4 % top ical cream Start: 10-17-2023 End: 10-17-2023 Lidocaine (ANECREAM) 4 % top ical cream Start: 10-03-2023 End: 10-03-2023 Lidocaine (ANECREAM) 4 % top ical cream Start: 09-05-2023 End: 09-05-2023 Lidocaine (ANECREAM) 4 % top ical cream Start: 08-22-2023 End: 08-22-2023 Lidocaine (ANECREAM) 4 % top ical cream Start: 07-11-2023 End: 07-11-2023 Lidocaine (ANECREAM) 4 % top ical cream Start: 06-20-2023 End: 06-20-2023 Lidocaine (ANECREAM) 4 % top ical cream Start: 06-06-2023 End: 06-06-2023 Lidocaine (ANECREAM) 4 % top ical cream Start: 04-18-2023 End: 04-18-2023 Lidocaine (ANECREAM) 4 % top ical cream Start: 12-28-2021 End: 12-28-2021 Lidocaine (ANECREAM) 4 % top ical cream Start: 12-12-2021 End: 12-12-2021 Lidocaine (ANECREAM) 4 % top ical cream Start: 11-09-2021 End: 11-09-2021 Lidocaine (ANECREAM) 4 % top ical cream Start: 10-26-2021 End: 10-26-2021 Lidocaine (ANECREAM) 4 % top ical cream Start: 09-21-2021 End: 09-21-2021 Lidocaine (ANECREAM) 4 % top ical cream Start: 08-31-2021 End: 08-31-2021 Lidocaine (ANECREAM) 4 % top ical cream Start: 08-17-2021 End: 08-17-2021 Lidocaine (ANECREAM) 4 % top ical cream Start: 07-20-2021 End: 07-20-2021 Lidocaine (ANECREAM) 4 % top ical cream Start: 07-13-2021 End: 07-13-2021 Lidocaine (ANECREAM) 4 % top ical cream Start: 06-29-2021 End: 06-29-2021 Lidocaine (ANECREAM) 4 % top ical cream Start: 06-22-2021 End: 06-22-2021 Lidocaine (ANECREAM) 4 % top ical cream linagliptin 5 mg oral tablet (20 sources) Dipeptidyl Peptidase 4 Inhibitor Start: 09-23-2024 End: 01-21-2025 take 1 tablet by mouth once daily linaGLIPtin (Tradjenta) 5 MG tablet Take 1 tablet (5 mg) by mouth daily. 30 tablet 3 09/23/2024 12/24/2024 Discontinued (Med list cleanup) linezolid 600 mg oral tablet (2 sources) Oxazolidinone Antibacterial Start: 10-20-2020 End: 10-21-2020 linezolid (ZYVOX) tablet 600 mg Start: 10-18-2020 End: 10-19-2020 linezolid (ZYVOX) 600mg in D 5W 300mL IVPB lisinopril 20 mg oral tablet (20 sources) Angiotensin Converting Enzyme Inhibitor Start: 07-09-2023 take 1 tablet by mouth twice daily lisinopriL (PRINIVIL,ZESTRIL) 20 mg tablet Indications: Essential hypertension Take 1 Tab by mouth two times a day 180 Tab 3 07/09/2023 Active Start: 01-15-2023 take 1 tablet by pavel th twice daily lisinopriL (PRINIVIL,ZESTRIL) 20 mg tablet Indications: Essential hypertension Take 1 Tab by mouth two times a day 180 Tab 3 01/15/2023 Active Start: 06-09-2021 take 1 tablet by pavel th twice daily lisinopriL (PRINIVIL,ZESTRIL) 20 mg tablet Indications: Essential hypertension Take 1 Tab by mouth two times a day 180 Tab 3 06/09/2021 Active Start: 02-14-2021 End: 12-24-2024 take 20 mg by mouth once daily 20 mg, Oral, Daily, First dose on Sat09/18/24 at 1855 Start: 06-29-2020 End: 10-21-2020 take 1 tablet by mouth twice daily lisinopriL (PRINIVIL,ZESTRIL) 40 mg tablet Indications: Essential hypertension Take 1 Tab by mouth two times a day 180 Tab 3 06/29/2020 10/21/2020 Discontinued Start: 06-17-2019 take 1 tablet by pavel th twice daily lisinopril (PRINIVIL,ZESTRIL) 40 mg tablet Indications: Essential hypertension Take 1 Tab by mouth two times a day 180 Tab 3 06/17/2019 Active methocarbamol 750 mg oral tablet (20 sources) Muscle Relaxant Start: 01-02-2022 End: 11-12-2023 take 1 tablet by mouth three times daily as needed methocarbamoL (ROBAXIN) 750 mg tablet Indications: Spinal stenosis of lumbar region with neurogenic claudication Take 1 Tab by mouth three times a day as needed 60 Tab 5 01/02/2022 11/12/2023 Discontinued Start: 06-09-2021 take 1 tablet by pavel th three times daily as needed methocarbamoL (ROBAXIN) 750 mg tablet Indications: Spinal stenosis of lumbar region with neurogenic claudication Take 1 Tab by mouth three times a day as needed 60 Tab 5 06/09/2021 Active Start: 06-29-2020 take 1 tablet by pavel th three times daily as needed methocarbamoL (ROBAXIN) 750 mg tablet Indications: Spinal stenosis of lumbar region with neurogenic claudication Take 1 Tab by mouth three times a day as needed 60 Tab 5 06/29/2020 Active Start: 06-17-2019 take 1 tablet by pavel th three times daily as needed methocarbamol (ROBAXIN) 750 mg tablet Indications: Spinal stenosis of lumbar region with neurogenic claudication Take 1 Tab by mouth three times a day as needed 60 Tab 5 06/17/2019 Active 1 ml morphine sulfate 10 mg/ml prefilled syringe (2 sources) Opioid Agonist Start: 03-20-2025 End: 03-20-2025 take 1 dose by mouth every hour 6 mg, IntraVENous, Once, On 03/20/25 at 1625, For 1 dose, If oral and injectable narcotics ordered, use oral first and only use injectable if oral is ineffective or cannot take oral. Do Not give oral and injectable within 1 hour of each other unless specifically ordered. Start: 03-20-2025 End: 03-20-2025 take 1 dose by mouth every hour 6 mg, IntraVENous, Once, On 03/20/25 at 1625, For 1 dose, If oral and injectable narcotics ordered, use oral first and only use injectable if oral is ineffective or cannot take oral. Do Not give oral and injectable within 1 hour of each other unless specifically ordered. multivitamin with folic acid (THERAGRAN) 400 mcg tablet 1 Tab (1 source) Start: 11-11-2023 take 1 tablet by mouth once daily 1 Tab, Oral, DAILY, First dose on Sat11/11/23 at 0900, Until Discontinued 1 ml naloxone hydrochloride 0.4 mg/ml injection (2 sources) Opioid Antagonist Start: 03-20-2025 End: 03-24-2025 2 ml ondansetron 2 mg/ml injection (1 source) Serotonin-3 Receptor Antagonist Start: 03-21-2025 End: 03-21-2025 IntraVENous, As needed, Starting on Sat03/21/25 at 0750, Anesthesia Intraprocedure ondansetron ODT (Zofran-ODT) disintegrating tablet 4 mg (10 sources) Start: 03-20-2025 End: 03-24-2025 take 1 tablet by mouth every eight hours as needed for nausea and vomiting ondansetron ODT (Zofran-ODT) disintegrating tablet 4 mg Start: 03-13-2025 End: 03-15-2025 take 1 tablet by mouth every eight hours as needed for nausea and vomiting ondansetron ODT (Zofran-ODT) disintegrating tablet 4 mg Start: 01-26-2025 End: 02-02-2025 take 1 tablet by mouth every eight hours as needed for nausea and vomiting ondansetron ODT (Zofran-ODT) disintegrating tablet 4 mg Start: 12-03-2024 End: 12-05-2024 take 1 tablet by mouth every eight hours as needed for nausea and vomiting ondansetron ODT (Zofran-ODT) disintegrating tablet 4 mg Start: 09-18-2024 End: 09-24-2024 take 1 tablet by mouth every eight hours as needed for nausea and vomiting ondansetron ODT (Zofran-ODT) disintegrating tablet 4 mg 24 hr oxybutynin chloride 5 mg extended release oral tablet (20 sources) Cholinergic Muscarinic Antagonist Start: 11-11-2023 take 10 mg by mouth once daily 10 mg, Oral, DAILY, First dose on Sat11/11/23 at 0900, Until Discontinued Start: 07-25-2023 take 1 tablet by pavel once daily oxybutynin (DITROPAN XL) 10 mg SR-tablet 24 Hr Indications: Urinary urgency Take 1 Tab by mouth daily 90 Tab 3 07/25/2023 Active Start: 07-10-2022 take 1 tablet by pavel th once daily oxybutynin (DITROPAN XL) 10 mg SR-tablet 24 Hr Indications: Urinary urgency Take 1 Tab by mouth daily 90 Tab 3 07/10/2022 Active Start: 06-09-2021 take 1 tablet by pavel th once daily oxybutynin (DITROPAN XL) 10 mg SR-tablet 24 Hr Indications: Urinary urgency Take 1 Tab by mouth daily 90 Tab 3 06/09/2021 Active Start: 02-14-2021 take 1 tablet by pavel th once daily oxybutynin (DITROPAN XL) 5 mg SR-tablet 24 Hr Indications: Urinary urgency TAKE 1 TABLET BY MOUTH DAILY 90 Tab 0 02/14/2021 Active take 2 tablets by mo uth once daily oxybutynin (Ditropan) 5 MG tablet Take 10 mg by mouth daily. Active oxybutynin (Ditr opan) 5 MG tablet Take by mouth. Active Phenylephrine HCl (Pressors) 1 MG/10ML injection (1 source) Start: 03-21-2025 End: 03-21-2025 IntraVENous, As needed, Starting on Sat03/21/25 at 0750, Anesthesia Intraprocedure piperacillin 3000 mg / tazobactam 375 mg injection (1 source) Penicillin-cla ss Antibacterial, beta Lactamase Inhibitor Start: 10-15-2020 End: 10-16-2020 piperacillin-tazoba ctam (ZOSYN) 3.375 g/50 mL IVPB piperacillin-tazoba ctam (Zosyn) 4,500 mg in sodium chloride 0.9 % 100 mL IVPB Mini-Bag Plus (4 sources) Start: 03-21-2025 End: 03-24-2025 take 4500 mg intravenously every six hours Start: 01-26-2025 End: 01-27-2025 take 4500 mg intravenously every six hours 4,500 mg, IntraVENous, at 33.3 mL/hr, Administer over 3 Hours, Every 6 hours, First dose on Sat01/26/25 at 1245, Mini-Bag Plus bag, Suspected Indication (Select all that apply): Skin and Soft Tissue Infection polyethylene glycol 3350 96751 mg powder for oral solution (10 sources) Osmotic Laxative Start: 03-20-2025 End: 03-24-2025 take 17 g by mouth every twenty-four hours as needed for constipation 17 g, Oral, Daily PRN, constipation, Starting on 03/20/25 at 2058, 1st line for treatment of constipation - give scheduled if no bowel movement in past 24 hours. Start: 03-13-2025 End: 03-15-2025 take 17 g by mouth every twenty-four hours as needed for constipation Start: 01-26-2025 End: 02-02-2025 take 17 g by mouth every twenty-four hours as needed for constipation Start: 12-03-2024 End: 12-05-2024 take 17 g by mouth every twenty-four hours as needed for constipation 17 g, Oral, Daily PRN, constipation, Starting on Renee 12/03/24 at 1157, 1st line for treatment of constipation - give scheduled if no bowel movement in past 24 hours. Start: 09-18-2024 End: 09-24-2024 take 17 g by mouth every twenty-four hours as needed for constipation microencapsulated potassium chloride 10 meq extended release oral tablet (5 sources) Start: 02-02-2025 End: 02-02-2025 40 mEq, Oral, Once, On Tu02/02/25 at 1000, For 1 dose, Best given with food and plenty of water to minimize gastric irritation. Do not crush or chew. Start: 10-20-2020 End: 10-20-2020 potassium chloride (K-DUR, K KOMAL-CON M) SR-tablet 40 mEq Start: 10-19-2020 End: 10-19-2020 potassium chloride (K-DUR, K KOMAL-CON M) SR-tablet 20 mEq Start: 10-17-2020 End: 10-17-2020 potassium chloride (K-DUR, K KOMAL-CON M) SR-tablet 40 mEq 20 ml propofol 10 mg/ml injection (1 source) General Anesthetic Start: 03-21-2025 End: 03-21-2025 IntraVENous, As needed, Starting on 03/21/25 at 0750, Anesthesia Intraprocedure sodium bicarbonate 75 mEq in sodium chloride 0.45 % 1,000 mL infusion (2 sources) Start: 03-20-2025 End: 03-21-2025 take 75 mL intravenously every hour 75 mL/hr, IntraVENous, Continuous, Starting on Sat03/20/25 at 2200, For 10 hours 50 ml sodium chloride 9 mg/ml injection (20 sources) Start: 03-22-2025 End: 03-24-2025 250 mL/hr, IntraVENous, Administer over 10 Minutes, As needed, For use in priming line prior to transfusion (prime via gravity) and flush line post transfusion, Starting on Sat03/22/25 at 0227, For 1 dose, For use in priming line prior to transfusion (prime via gravity) and flush line post transfusion ONLY. Discontinue once line has been cleared of remaining blood product. Start: 03-12-2025 End: 03-13-2025 take 75 mL intravenously every hour 75 mL/hr, IntraVENous, Continuous, Starting on Sat03/12/25 at 2250, For 13 hours Start: 03-12-2025 End: 03-15-2025 take 100 mL intravenously every hour 100 mL/hr, IntraVENous, Continuous, Starting on Sat03/13/25 at 0720, For 1 L Start: 01-26-2025 End: 02-02-2025 5-40 mL, IntraVENous, Every 12 hours scheduled (2 times per day), First dose on Sat01/26/25 at 0900, For Line Patency: Peripheral IV = 5 mL; Midline or Central Line = 10 mL/lumen. If following IV push medication, administer flush at same rate as the IV push. Flush volume is determined by type of infusion therapy being given. For non-viscous solutions use: Peripheral IV = 5 mL Midline or Central Line = 10 mL/lumen For viscous solutions (i.e. blood components, parenteral nutrition, contrast media, or after obtaining blood sample) use: Peripheral IV = 10 mL Midline or Central Line = 20 mL/lumen Start: 01-26-2025 End: 01-26-2025 1,200 mL, IntraVENous, at 40 0 mL/hr, Administer over 3 Hours, Once, On Sat01/26/25 at 0235, For 1 dose, In accordance with Surviving Sepsis Campaign, infuse 30 mL/kg fluid challenge as rapidly as possible without overloading patient (target 30 to 60 minutes). If calculated rate exceeds 999 mL/hr, may administer wide open or using other rapid infusion mechanism. Start: 01-26-2025 End: 02-02-2025 5-40 mL, IntraVENous, PRN, l ine care, Starting on Sat01/26/25 at 0230, For Line Patency: Peripheral IV = 5 mL; Midline or Central Line = 10 mL/lumen. If following IV push medication, administer flush at same rate as the IV push. Flush volume is determined by type of infusion therapy being given. For non-viscous solutions use: Peripheral IV = 5 mL Midline or Central Line = 10 mL/lumen For viscous solutions (i.e. blood components, parenteral nutrition, contrast media, or after obtaining blood sample) use: Peripheral IV = 10 mL Midline or Central Line = 20 mL/lumen Start: 01-25-2025 End: 01-27-2025 take 75 mL intravenously every hour 75 mL/hr, IntraVENous, Continuous, Starting on Sat01/26/25 at 1145, For 20 hours Start: 01-25-2025 End: 02-02-2025 take 100 mL intravenously every hour as needed, then take 20 mL intravenously every hour as needed 5-250 mL/hr, IntraVENous, PRN, if patient receiving piggyback infusions and maintenance fluids are not ordered OR KVO fluids to protect IV site / prevent frequent line interruptions/ long duration, Starting on Sat01/26/25 at 0230, For piggyback infusion, administer at same rate as piggyback for a total of 25 mL. Enter 25 mL into dose field and piggyback rate into rate field of order. If piggyback is infusing at a rate less than 100 mL/hr, enter 25 mL into dose field and 100 mL/hr into rate field of order. For KVO fluids, enter rate of 20 mL/hr or less into rate field of order. Start: 12-02-2024 End: 12-02-2024 1,000 mL, IntraVENous, at 1, 000 mL/hr, Administer over 1 Hours, Once, On Sat12/02/24 at 2125, For 1 dose Start: 09-18-2024 End: 09-21-2024 take 75 mL intravenously every hour 75 mL/hr, IntraVENous, Continuous, Starting on Sat09/18/24 at 1855 Start: 09-18-2024 End: 09-18-2024 1,000 mL, IntraVENous, at 1, 000 mL/hr, Administer over 1 Hours, Once, On Sat09/18/24 at 1555, For 1 dose Start: 09-17-2024 End: 09-17-2024 1,000 mL, IntraVENous, at 1, 000 mL/hr, Administer over 1 Hours, Once, On Renee 09/17/24 at 1220, For 1 dose Start: 11-10-2023 NaCl 0.9% 1,00 0 mL Start: 11-10-2023 saline flush Start: 10-16-2020 End: 10-17-2020 NaCl 0.9% Start: 10-16-2020 take 1 dose intraven ous route every twelve hours IV Push, EVERY 12 HOURS, First dose on Sat10/16/20 at 0900, Until Discontinued Start: 10-16-2020 saline flush Start: 10-15-2020 End: 10-19-2020 take 1000 mL intravenous route every hour as needed 1,000 mL, Intravenous, CONTINUOUS PRN, Starting Sat10/16/20 at 0257, Until Discontinued, at 10 mL/hr, other Succinylcholine Chloride (Anectine) injection (1 source) Start: 03-21-2025 End: 03-21-2025 IntraVENous, As needed, Starting on Sat03/21/25 at 0750, Anesthesia Intraprocedure sulfamethoxazole 800 mg / trimethoprim 160 mg oral tablet (14 sources) Dihydrofolate Reductase Inhibitor Antibacterial, Sulfonamide Antimicrobial Start: 10-13-2021 End: 12-12-2021 take 1 tablet by mouth twice daily trimethoprim-sulfam ethoxazole (BACTRIM DS) 160-800 mg tablet Indications: Cellulitis of right foot Take 1 Tab by mouth two times a day 14 Tab 0 10/13/2021 12/12/2021 Discontinued (Therapy Completed) End: 03-15-2025 take 1 tablet by mouth twice daily sulfamethoxazole-trimethoprim (Bactrim) 400-80 MG tablet Take 1 tablet by mouth 2 times daily. 03/15/2025 Discontinued (Stop taking at discharge) 10 ml tranexamic acid 100 mg/ml injection (1 source) Antifibrinolytic Agent Start: 03-21-2025 End: 03-21-2025 IntraVENous, As needed, Starting on Sat03/21/25 at 0910, Anesthesia Intraprocedure trospium chloride 20 mg oral tablet (6 sources) Cholinergic Muscarinic Antagonist Start: 03-21-2025 End: 03-24-2025 take 20 mg by mouth once daily 1 hour(s) before mealtime 20 mg, Oral, Daily before breakfast, First dose on Sat03/21/25 at 0600, Substituted for oxybutynin (DITROPAN); fesoterodine (TOVIAZ); darifenacin (ENABLEX); solifenacin (VESICARE); tolterodine IR (DETROL); tolterodine ER (DETROL LA). Give one hour before meals. Start: 03-13-2025 End: 03-15-2025 take 20 mg by mouth twice daily 1 hour(s) before mealtime 20 mg, Oral, 2 times daily before meals, First dose on Sat03/13/25 at 0700, Substituted for oxybutynin (DITROPAN); fesoterodine (TOVIAZ); darifenacin (ENABLEX); solifenacin (VESICARE); tolterodine IR (DETROL); tolterodine ER (DETROL LA). Give one hour before meals. Start: 09-19-2024 End: 09-24-2024 take 20 mg by mouth twice daily 1 hour(s) before mealtime 20 mg, Oral, 2 times daily before meals, First dose on Sat09/19/24 at 0700, Substituted for oxybutynin (DITROPAN); fesoterodine (TOVIAZ); darifenacin (ENABLEX); solifenacin (VESICARE); tolterodine IR (DETROL); tolterodine ER (DETROL LA). Give one hour before meals. Vancomycin (6 sources) Glycopeptide Antibacterial Start: 03-21-2025 End: 03-21-2025 Start: 01-26-2025 End: 01-28-2025 1,250 mg, IntraVENous, at 16 6.7 mL/hr, Administer over 90 Minutes, Every 24 hours, First dose on Sat01/26/25 at 1245, premix bag, Suspected Indication (Select all that apply): Skin and Soft Tissue Infection Start: 10-17-2020 End: 10-18-2020 vancomycin (VANCOCIN) 1,000 mg IVPB 200 mL Start: 10-15-2020 End: 10-16-2020 vancomycin (VANCOCIN) 1,750 mg IVPB 350 mL vancomycin (Vancocin) 1,000 mg in sodium chloride 0.9 % 250 mL IVPB (2 sources) Start: 01-28-2025 End: 01-29-2025 vancomycin (Vancocin) 1,000 mg in sodium chloride 0.9 % 250 mL IVPB (Vial Mate) (2 sources) Start: 03-22-2025 End: 03-23-2025 vancomycin (VANCOCIN) 1,500 mg in NaCl 0.9% 250 mL IVPB (1 source) Start: 11-10-2023 End: 11-10-2023 1,500 mg (rounded from 1,395 mg = 15 mg/kg/dose 93 kg), Intravenous, at 166.67 mL/hr, Administer over 90 Minutes, ONCE, 1 dose, On 11/10/23 at 1910, Indications: CELLULITIS / SSTI vitamins multiple therapeutic w/ minerals (THERAGRAN-M) tablet 1 Tab (1 source) Start: 10-16-2020 take 1 tablet by mouth once daily 1 Tab, Oral, DAILY, First dose on 10/16/20 at 0900, Until Discontinued Problems Active Problems Problem Classification Problem Date Documented Da te Episodic/Chronic Acute and unspecified renal failure (15 sources) Acute renal failure syndrome; Translations: [Acute kidney failure, unspecified] Onset: 11-12-2023 11-12-2023 Episodic Acute and unspecified renal failure (1 source) Acute injury of kidney; Translations: [NAYELY (acute kidney injury) (HC CODE)] Cardiac dysrhythmias (20 sources) Paroxysmal atrial fibrillation; Translations: [Paroxysmal atrial fibrillation] Onset: 10-26-2017 10-26-2017 Chronic Chronic ulcer of skin (20 sources) Ulcer of lower extremity; Translations: [Non-pressure chronic ulcer of unspecified part of right lower leg with fat layer exposed] Onset: 11-09-2021 Resolved: 09-16-2023 11-09-2021 Chronic Diabetes mellitus with complications (20 sources) Type 2 diabetes mellitus with ulcer; Translations: [Type 2 diabetes mellitus with foot ulcer] Onset: 02-19-2019 Resolved: 02-14-2021 05-15-2019 Chronic Diabetes mellitus without complication (20 sources) Type 2 diabetes mellitus; Translations: [Type 2 diabetes mellitus without complications] Onset: 11-09-2016 05-15-2019 Chronic Disorders of lipid metabolism (16 sources) Mixed hyperlipidemia; Translations: [Mixed hyperlipidemia] Onset: 11-12-2023 11-12-2023 Chronic Essential hypertension (20 sources) Essential hypertension; Translations: [Essential (primary) hypertension] Onset: 11-09-2016 05-15-2019 Chronic Fracture of neck of femur (hip) (11 sources) Closed fracture of hip; Translations: [Fracture of unspecified part of neck of left femur, initial encounter for closed fracture] Onset: 03-20-2025 03-20-2025 Episodic Genitourinary symptoms and ill-defined conditions (2 sources) Urgency of urination; Translations: [Urgency of urination] Onset: 05-22-2024 Episodic Malaise and fatigue (1 source) Asthenia; Translations: [Weakness] Episodic Nonspecific chest pain (1 source) Precordial pain; Translations: [Precordial pain] Episodic Osteoarthritis (20 sources) Arthritis; Translations: [Unspecified osteoarthritis, unspecified site] Onset: 11-09-2016 05-15-2019 Chronic Osteoporosis (6 sources) Osteoporosis; Translations: [Age-related osteoporosis without current pathological fracture] Onset: 03-20-2025 03-24-2025 Chronic Other connective tissue disease (2 sources) Bilateral calf pain; Translations: [Pain in right lower leg] 01-27-2025 Episodic Other injuries and conditions due to external causes (3 sources) Systemic inflammatory response syndrome; Translations: [Systemic inflammatory response syndrome (SIRS) of non-infectious origin without acute organ dysfunction] 01-27-2025 Episodic Other injuries and conditions due to external causes (2 sources) Other injury of unspecified body region, initial encounter; Translations: [Other injury of unspecified body region, initial encounter] Onset: 01-23-2024 Episodic Other nervous system disorders (4 sources) Other chronic pain; Translations: [Other chronic pain] Onset: 09-16-2023 Chronic Other non-traumatic joint disorders (13 sources) Charcot's joint of foot; Translations: [Charcot's joint, right ankle and foot] 02-23-2025 Chronic Other non-traumatic joint disorders (2 sources) Charcot's joint, right ankle and foot; Translations: [Charcot's joint, right ankle and foot] Onset: 03-09-2025 Chronic Other screening for suspected conditions (not mental disorders or infectious disease) (1 source) Patient encounter status; Translations: [Encounter for screening mammogram for malignant neoplasm of breast] Episodic Paralysis (20 sources) Paraparesis; Translations: [Paraplegia, unspecified] Onset: 12-02-2017 12-02-2017 Chronic Peripheral and visceral atherosclerosis (20 sources) Peripheral vascular disease; Translations: [Peripheral vascular disease, unspecified] Onset: 02-14-2021 02-14-2021 Chronic Skin and subcutaneous tissue infections (1 source) Cellulitis of right lower limb; Translations: [Cellulitis of right lower extremity] Thyroid disorders (20 sources) Hypothyroidism; Translations: [Hypothyroidism, unspecified] Onset: 11-09-2016 05-15-2019 Chronic Unclassified (2 sources) cellulitus Onset: 11-10-2023 Unclassified (11 sources) [facility] IMPAIRED TISSUE Onset: 10-02-2024 10-02-2024 Unclassified (11 sources) [facility] EDUCATION NEEDED ON IMPACT OF SMOKING ON WOUND Onset: 10-02-2024 10-02-2024 Unclassified (11 sources) Education needed related to ulceration/compromis ed skin integrity. 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), right foot] Onset: 10-16-2024 10-09-2024 Episodic Bacterial infection; unspecified site (20 sources) Bacteremia; Translations: [Bacteremia] Onset: 01-25-2025 Resolved: 01-26-2025 01-26-2025 Episodic Cardiac dysrhythmias (20 sources) Palpitations; Translations: [Palpitations] Onset: 07-31-2017 07-31-2017 Episodic Complications of surgical procedures or medical care (20 sources) Postoperative ileus; Translations: [Other postprocedural complications and disorders of digestive system] Onset: 10-26-2017 10-26-2017 Episodic Diabetes mellitus without complication (4 sources) Hyperglycemia; Translations: [Hyperglycemia, unspecified] Onset: 09-17-2024 09-17-2024 Episodic Diabetes mellitus without complication (9 sources) Diabetes mellitus without complication 09-24-2024 Fluid and electrolyte disorders (20 sources) Hyponatremia; Translations: [Hypo-osmolality and hyponatremia] Onset: 10-25-2017 10-25-2017 Episodic Other aftercare (2 sources) snf (current) use of insulin; Translations: [terminologist (current) use of insulin (HCC)] Onset: 12-24-2024 Episodic Other connective tissue disease (2 sources) Bursitis of right shoulder; Translations: [Bursitis of right shoulder] Onset: 12-02-2023 Episodic Other connective tissue disease (20 sources) Bilateral dysfunction of posterior tibial tendon of feet; Translations: [Posterior tibial tendinitis, right leg] Onset: 10-16-2024 10-09-2024 Episodic Other connective tissue disease (4 sources) Other symptoms and signs involving the musculoskeletal system; Translations: [Other musculoskeletal symptoms referable to limbs] Onset: 12-02-2024 12-02-2024 Episodic Other connective tissue disease (2 sources) Pain in right lower leg; Translations: [Pain in right lower leg] Onset: 01-25-2025 Episodic Other connective tissue disease (2 sources) Pain in left lower leg; Translations: [Pain in left lower leg] Onset: 01-25-2025 Episodic Other connective tissue disease (2 sources) Posterior tibial tendinitis, right leg; Translations: [Posterior tibial tendinitis, right leg] Onset: 10-16-2024 Episodic Other connective tissue disease (2 sources) Posterior tibial tendinitis, left leg; Translations: [Posterior tibial tendinitis, left leg] Onset: 10-16-2024 Episodic Other injuries and conditions due to external causes (2 sources) Systemic inflammatory response syndrome (SIRS) of non-infectious origin without acute organ dysfunction; Translations: [Systemic inflammatory response syndrome (sirs) of non-infectious origin without acute organ dysfunction (HCC)] Onset: 01-25-2025 Episodic Other nervous system disorders (20 sources) Ataxia; Translations: [Ataxia, unspecified] Onset: 05-15-2019 05-15-2019 Episodic Other nervous system disorders (4 sources) Other abnormalities of gait and mobility; Translations: [Other abnormalities of gait and mobility] Onset: 09-16-2023 Episodic Other non-traumatic joint disorders (5 sources) Pain in right knee; Translations: [Pain in joint, lower leg] Onset: 09-16-2023 09-19-2023 Episodic Other non-traumatic joint disorders (5 sources) Pain in right shoulder; Translations: [Pain in joint, shoulder region] Onset: 10-18-2023 10-18-2023 Episodic Other non-traumatic joint disorders (2 sources) Shoulder pain; Translations: [Shoulder Pain] Onset: 12-02-2023 Episodic Residual codes; unclassified (4 sources) Amnesia; Translations: [Other amnesia] Onset: 10-15-2024 10-15-2024 Episodic Residual codes; unclassified (20 sources) Confusional state; Translations: [Disorientation, unspecified] Onset: 12-02-2024 12-02-2024 Episodic Residual codes; unclassified (2 sources) Disorientation, unspecified; Translations: [Disorientation, unspecified] Onset: 12-02-2024 Episodic Septicemia (except in labor) (20 sources) Sepsis; Translations: [Sepsis, unspecified organism] Onset: 01-25-2025 01-26-2025 Episodic Skin and subcutaneous tissue infections (20 sources) Cellulitis; Translations: [Cellulitis, unspecified] Onset: 10-16-2020 10-16-2020 Episodic Spondylosis; intervertebral disc disorders; other back problems (20 sources) Spinal stenosis of lumbar region; Translations: [Spinal stenosis, lumbar region with neurogenic claudication] Onset: 10-25-2017 10-25-2017 Episodic Thyroid disorders (11 sources) Atrophy of thyroid - acquired; Translations: [Atrophy of thyroid (acquired)] Onset: 11-09-2016 11-12-2023 Episodic Unclassified (20 sources) Onset: 10-07-2020 Resolved: 12-16-2023 10-07-2020 Urinary tract infections (8 sources) Urinary tract infectious disease; Translations: [Urinary tract infection, site not specified] Onset: 09-18-2024 09-18-2024 Episodic Results Test Name Value Interpretation Reference Range Facility [id number] 04-30-2025 [id number] Patient Choice Patient Name: HANNA NELSON Date of : 1940 Normal [facility] Thyroid Stim Hormone (TSH)on 04-19-2025 TSH 2.660 uIU/mL Normal 0.300-4.20 0 [facility] Comment on above: Order Comment: 304-1 Performed By: #### L 501.9520 #### [facility] [address] [place], [place], [address] 36on 04-14-2025 36 Normal [facility] CDIFF (PCR)on 04-07-2025 CDIFF A positive C. diffic ile molecular test does not differentiate between an active C. difficile infection and C. difficile colonization. Use clinical judgement and paired toxin/antigen testing to identify true infection and need for treatment. C diff DNA Spec Ql ROBERT+probe Reference Range: Negative [facility] GeneXpert: polymerase chain reaction (PCR) 027 027 NAP1-B1 Presumptive Negative *for epidemiolologic???use C. Diff PCR A Positive-Toxigenic C. Difficile Detected A Normal [facility] Comment on above: Performed By: #### M 733.6765, M100.6756 #### [facility] [address] [place], [place], [address] Clostridium Diff Toxin/Agon 04-07-2025 CDIFF (EIA) Interpretation of C. diff by EIA Method C diff Stl Ql POS for Antigen and NEG for Toxin = Positive for toxigenic C. Difficile gene but the active toxin production NOT detected. May be a colonized carrier or toxin level is below limit of detection. C diff Stl Ql Copy of report sent to Infection Control Printer [id number] 04/07/25 2530 BLUCAS. C. difficile Antigen A Positive C. diff A/B Antigen A C. difficile Toxin Negative C. diff Toxin Normal [facility] Comment on above: Performed By: #### M 100.6796, M100.6795 #### [facility] [place], [address] 36on 04-06-2025 36 Called and gave the verbal ok for removal [facility] 36 OK for removal [place] [phone] Please advise if sta ples may be removed. Thank you, [facility] [phone] [facility] 36on 04-05-2025 36 Spoke to nursing sta ff, gave clinical email for picture to be sent, and specified x-rays needed. [facility] 36 We would need pictur e of incision to approve staple removal, if karen are removed prior to appointment does not need to come in/have x-rays until 6 weeks from surgery (week of May 03) [facility] 36 [facility] Urine Cultureon 04-05-2025 [facility] Copy of report sent to Infection Control Printer MS#[id number] 04/04/25 1126 ASNIPES. Urine Culture RESULTS CALLED TO [facility] 04/05/25 Mario Brito. REPORT READ BACK BY . Urine Culture Raoultella planticola [place] Count <1000 Vancomycin Resist. E. faecium Vancomycin Resist. E. faecium CALBP [place] Count <1000 * This is an amended result. * A prior result that was reported as final has been changed. 04/05/25 1508 by LEANNE Dickersonultella planticola: REACTION Ampicillin Islt AMA R Ampicillin+Sulbac Islt AMA <=2 S Cefepime Islt AMA <=0.12 cefTRIAXone Islt AMA <=0.25 S Ciprofloxacin Islt AMA <=0.06 S Gentamicin Islt AMA <=1 S levoFLOXacin Islt AMA <=0.12 S Meropenem Islt AMA <=0.25 S Nitrofurantoin Islt AMA <=16 S Pip+Tazo Islt AMA <=4 S TMP SMX Islt AMA <=20 S Vancomycin Resist. E. faecium: REACTION Ampicillin Islt AMA >=32 R Ciprofloxacin Islt AMA >=8 R Gentamicin Synergy Susc Islt SYN-S levoFLOXacin Islt AMA >=8 R Linezolid Islt AMA 2 S Nitrofurantoin Islt AMA 64 I Streptomycin High Pot Susc Islt SYN-R R Tetracycline Islt AMA >=16 R Vancomycin Islt AMA >=32 R Normal [facility] Comment on above: Performed By: #### L 100.0500 #### [facility] [address] [place], [address] CBC-Complete Blood Cnt No Di ffon 03-31-2025 Erythrocyte distribution width (RBC) [Ratio] 15.4 % High 11.6-14.6 [facility] Comment on above: Order Comment: 304-1 Performed By: #### L 400.0001, L100.0500, M100.2200 #### [facility] [address] [place], [address] Hematocrit (Bld) [Volume fraction] 27.9 % Low 37-47 [facility] Comment on above: Order Comment: 304-1 Performed By: #### L 400.0001, L100.0500, M100.2200 #### [facility] [address] [place], [address] Hemoglobin (Bld) [Mass/Vol] 8.7 g/dL Low 12.0-15.0 [facility] Comment on above: Order Comment: 304-1 Performed By: #### L 400.0001, L100.0500, M100.2200 #### [facility] [address] [place], [address] MCH (RBC) [Entitic mass] 29.5 pg Normal 27.0-32.0 [facility] Comment on above: Order Comment: 304-1 Performed By: #### L 400.0001, L100.0500, M100.2200 #### [facility] [address] [place], [address] MCHC (RBC) [Mass/Vol] 31.2 g/dL Low 32-36 [facility] Comment on above: Order Comment: 304-1 Performed By: #### L 400.0001, L100.0500, M100.2200 #### [facility] [address] [place], [address] MCV (RBC) [Entitic vol] 94.6 fL Normal 81-99 [facility] Comment on above: Order Comment: 304-1 Performed By: #### L 400.0001, L100.0500, M100.2200 #### [facility] [address] [place], [address] Platelet mean volume (Bld) [Entitic vol] 10.2 fL Normal 6.2-12.0 [facility] Comment on above: Order Comment: 304-1 Performed By: #### L 400.0001, L100.0500, M100.2200 #### [facility] [address] [place], [address] Platelets (Bld) [#/Vol] 445 10*3/uL Normal 150-450 [facility] Comment on above: Order Comment: 304-1 Performed By: #### L 400.0001, L100.0500, M100.2200 #### [facility] [address] [place], [address] RBC (Bld) [#/Vol] 2.95 10*6/uL Low 4.2-5.4 [facility] Comment on above: Order Comment: 304-1 Performed By: #### L 400.0001, L100.0500, M100.2200 #### [facility] [address] [place], [address] RDW SD 53.5 fl High 35.1-43.9 [facility] Comment on above: Order Comment: 304-1 Performed By: #### L 400.0001, L100.0500, M100.2200 #### [facility] [address] [place], [address] WBC (Bld) [#/Vol] 11.6 10*3/uL High 4.4-11.0 [facility] Comment on above: Order Comment: 304-1 Performed By: #### L 400.0001, L100.0500, M100.2200 #### [facility] [address] [place], [address] Urinalysis, Completeon 03-31 BACTERIA 0 SEEN Normal None Seen [facility] Comment on above: Order Comment: GUME TER SPECIMEN Performed By: #### L 400.0001, L100.0500, M100.2200 #### [facility] [address] [place], [address] EPI,SQUAMOUS 0 SEEN Normal 5-10 [facility] Comment on above: Order Comment: GUME TER SPECIMEN Performed By: #### L 400.0001, L100.0500, M100.2200 #### [facility] [address] [place], [address] Mucus Ql (Urine sed) 0 SEEN Normal [facility] Comment on above: Order Comment: GUME TER SPECIMEN Performed By: #### L 400.0001, L100.0500, M100.2200 #### [facility] [address] [place], [address] RBC 0 SEEN Normal 0-5 [facility] Comment on above: Order Comment: GUME TER SPECIMEN Performed By: #### L 400.0001, L100.0500, M100.2200 #### [facility] [address] [place], [address] WBC 0 SEEN Normal 0-5 [facility] Comment on above: Order Comment: GUME TER SPECIMEN Performed By: #### L 400.0001, L100.0500, M100.2200 #### [facility] [address] [place], [address] CBC-Complete Blood Cnt No Di ffon 03-30-2025 HCT Normal 37-47 [facility] Comment on above: Order Comment: 304.1 Result Comment: UTO X2 Performed By: #### L 100.0500 #### [facility] [address] [place], [address] HGB Normal 12.0-15.0 [facility] Comment on above: Order Comment: 304.1 Result Comment: UTO X2 Performed By: #### L 100.0500 #### [facility] [address] [place], [address] MCH Normal 27.0-32.0 [facility] Comment on above: Order Comment: 304.1 Result Comment: UTO X2 Performed By: #### L 100.0500 #### [facility] [address] [place], [address] MCHC Normal 32-36 [facility] Comment on above: Order Comment: 304.1 Result Comment: UTO X2 Performed By: #### L 100.0500 #### [facility] [address] [place], [address] MCV Normal 81-99 [facility] Comment on above: Order Comment: 304.1 Result Comment: UTO X2 Performed By: #### L 100.0500 #### [facility] [address] [place], [address] PLT Normal 150-450 [facility] Comment on above: Order Comment: 304.1 Result Comment: UTO X2 Performed By: #### L 100.0500 #### [facility] [address] [place], [address] RBC Normal 4.2-5.4 [facility] Comment on above: Order Comment: 304.1 Result Comment: UTO X2 Performed By: #### L 100.0500 #### [facility] [address] [place], [address] RDW CV Normal 11.6-14.6 [facility] Comment on above: Order Comment: 304.1 Result Comment: UTO X2 Performed By: #### L 100.0500 #### [facility] [address] [place], [address] RDW SD Normal 35.1-43.9 [facility] Comment on above: Order Comment: 304.1 Result Comment: UTO X2 Performed By: #### L 100.0500 #### [facility] [address] [place], [address] WBC Normal 4.4-11.0 [facility] Comment on above: Order Comment: 304.1 Result Comment: UTO X2 Performed By: #### L 100.0500 #### [facility] [address] [place], [address] Basic Metabolic Profile (BMP )on 03-29-2025 BUN/CRE 41.7 RATIO High 10-20 [facility] Comment on above: Order Comment: 304-1 Performed By: #### L 100.0500, L500.2500 #### [facility] [address] [place], [address] Calcium [Mass/Vol] 9.1 mg/dL Normal 7.6-11.0 [facility] Comment on above: Order Comment: 304-1 Performed By: #### L 100.0500, L500.2500 #### [facility] [address] [place], [address] Chloride [Moles/Vol] 103 mmol/L Normal 98-108 [facility] Comment on above: Order Comment: 304-1 Performed By: #### L 100.0500, L500.2500 #### [facility] [address] [place], [address] CO2 [Moles/Vol] 24.0 mmol/L Normal 21.0-32.0 [facility] Comment on above: Order Comment: 304-1 Performed By: #### L 100.0500, L500.2500 #### [facility] [address] [place], [address] Creatinine [Mass/Vol] 0.94 mg/dL Normal 0.70-1.20 [facility] Comment on above: Order Comment: 304-1 Performed By: #### L 100.0500, L500.2500 #### [facility] [address] [place], [address] GAP 11 Normal 5-15 [facility] Comment on above: Order Comment: 304-1 Performed By: #### L 100.0500, L500.2500 #### [facility] [address] [place], [address] GFR/1.73 sq M.predicted among non-blacks MDRD (S/P/Bld) [Vol rate/Area] 59 mL/min/{1.73_m2} Low >60 [facility] Comment on above: Order Comment: 304-1 Result Comment: mL/m in/1.73m2 CKD-EPI Creatinine Equation (2020) Performed By: #### L 100.0500, L500.2500 #### [facility] [address] [place], [address] Glucose [Mass/Vol] 158 mg/dL High 70-99 [facility] Comment on above: Order Comment: 304-1 Performed By: #### L 100.0500, L500.2500 #### [facility] [address] [place], [address] Potassium [Moles/Vol] 4.2 mmol/L Normal 3.3-5.1 [facility] Comment on above: Order Comment: 304-1 Performed By: #### L 100.0500, L500.2500 #### [facility] [address] [place], [address] Sodium [Moles/Vol] 139 mmol/L Normal 133-145 [facility] Comment on above: Order Comment: 304-1 Performed By: #### L 100.0500, L500.2500 #### [facility] [address] [place], [address] Urea nitrogen [Mass/Vol] 39 mg/dL High 4-19 [facility] Comment on above: Order Comment: 304-1 Performed By: #### L 100.0500, L500.2500 #### [facility] [address] [place], [address] CBC-Complete Blood Cnt No Di ffon 03-29-2025 Erythrocyte distribution width (RBC) [Ratio] 15.3 % High 11.6-14.6 [facility] Comment on above: Order Comment: 304-1 Performed By: #### L 100.0500, L500.2500 #### [facility] [address] [place], [address] Hematocrit (Bld) [Volume fraction] 28.8 % Low 37-47 [facility] Comment on above: Order Comment: 304-1 Performed By: #### L 100.0500, L500.2500 #### [facility] [address] [place], [address] Hemoglobin (Bld) [Mass/Vol] 8.9 g/dL Low 12.0-15.0 [facility] Comment on above: Order Comment: 304-1 Performed By: #### L 100.0500, L500.2500 #### [facility] [address] [place], [address] MCH (RBC) [Entitic mass] 29.2 pg Normal 27.0-32.0 [facility] Comment on above: Order Comment: 304-1 Performed By: #### L 100.0500, L500.2500 #### [facility] [address] [place], [address] MCHC (RBC) [Mass/Vol] 30.9 g/dL Low 32-36 [facility] Comment on above: Order Comment: 304-1 Performed By: #### L 100.0500, L500.2500 #### [facility] [address] [place], [address] MCV (RBC) [Entitic vol] 94.4 fL Normal 81-99 [facility] Comment on above: Order Comment: 304-1 Performed By: #### L 100.0500, L500.2500 #### [facility] [address] [place], [address] Platelet mean volume (Bld) [Entitic vol] 10.3 fL Normal 6.2-12.0 [facility] Comment on above: Order Comment: 304-1 Performed By: #### L 100.0500, L500.2500 #### [facility] [address] [place], [address] Platelets (Bld) [#/Vol] 415 10*3/uL Normal 150-450 [facility] Comment on above: Order Comment: 304-1 Performed By: #### L 100.0500, L500.2500 #### [facility] [address] [place], [address] RBC (Bld) [#/Vol] 3.05 10*6/uL Low 4.2-5.4 [facility] Comment on above: Order Comment: 304-1 Performed By: #### L 100.0500, L500.2500 #### [facility] [address] [place], [address] RDW SD 53.1 fl High 35.1-43.9 [facility] Comment on above: Order Comment: 304-1 Performed By: #### L 100.0500, L500.2500 #### [facility] [address] [place], [address] WBC (Bld) [#/Vol] 11.4 10*3/uL High 4.4-11.0 [facility] Comment on above: Order Comment: 304-1 Performed By: #### L 100.0500, L500.2500 #### [facility] [address] [place], [address] [id number] 03-24-2025 [id number] Noted dc plan for SN F placement, updated pt's home care agency via [facility] of plan to dc to SNF. Home care signing off at this time. Normal [facility] [id number] 03-24-2025 [id number] MAR & Discharge med list transmitted and 7000 in HENs to SN[facility] via [facility] per T[facility] request. Normal [facility] [id number] Normal [facility] BASIC METABOLIC PANELon 08- Anion gap [Moles/Vol] 8 mmol/L Normal - [facility] Comment on above: Performed By: #### L AB15 ####Rn Building: BROOKE RINCON ([id number])[address] Calcium [Mass/Vol] 8.7 mg/dL Low 8.8-10.0 [facility] Comment on above: Performed By: #### L AB15 ####Rn Building: BROOKE RINCON ([id number])[facility] [place] [address] Chloride [Moles/Vol] 106 mmol/L Normal 98-107 [facility] Comment on above: Performed By: #### L AB15 ####Rn Building: BROOKE RINCON ([id number])[facility])[address] [place] [address] [place] CO2 [Moles/Vol] 24 mmol/L Normal 23-31 [facility] Comment on above: Performed By: #### L AB15 ####Rn Building: BROOKE RINCON ([id number])[facility])[address] [place] [address] Creatinine [Mass/Vol] 1.06 mg/dL Normal 0.57-1.11 [facility] Comment on above: Performed By: #### L [id number] ####Rn Building: BROOKE RINCON ([id number])[facility])[address] [place] [address] GLOMERULAR FILTRATION RATE ML/MIN/1.73 SQ M.PREDICTED 51.6 mL/min/1.73m*2 Low >60.0 [facility] Comment on above: Result Comment: Calc ulation based on the Chronic Kidney Disease Epidemiology Collaboration (CKD-EPI) equation refit without adjustment for race Performed By: #### L [id number] ####Rn Building: BROOKE RINCON ([id number])[facility] ([facility])[address] [place] [address] [place] Glucose [Mass/Vol] 187 mg/dL High 82-115 [facility] Comment on above: Performed By: #### L [id number] ####Rn Building: BROOKE RINCON ([id number])[facility])[address] [place] [address] [place] Potassium [Moles/Vol] 4.4 mmol/L Normal 3.5-5.1 [facility] Comment on above: Result Comment: [facility] potassium values may be up to 0.5 mmol/L lower than serum values. Performed By: #### L AB15 ####Rn Building: BROOKE RINCON ([id number])[facility])[address] [place] [address] Sodium [Moles/Vol] 138 mmol/L Normal 136-145 [facility] Comment on above: Performed By: #### L [id number] ####Rn Building: BROOKE [id number])[facility] ([facility])[address] [place] [address] Urea nitrogen [Mass/Vol] 26 mg/dL High 9-23 [facility] Comment on above: Performed By: #### L [id number] ####Rn Building: BROOKE RINCON ([id number])[facility] [place] [address] Basic metabolic 1998 panelon 03-24-2025 Anion gap [Moles/Vol] 8 mmol/L 3 - 13 mmol/L [facility] Calcium [Mass/Vol] 8.7 mg/dL Low 8.8 - 10. 0 mg/dL [facility] Chloride [Moles/Vol] 106 mmol/L 98 - 10 7 mmol/L [facility] CO2 [Moles/Vol] 24 mmol/L 23 - 31 mmol/L [facility] Creatinine [Mass/Vol] 1.06 mg/dL 0.57 - 1.11 mg/dL [facility] GFR/1.73 sq M.predicted (S/P/Bld) [Vol rate/Area] 51.6 mL/min Low - PINF [facility] Comment on above: Calculation based on the Chronic Kidney Disease Epidemiology Collaboration (CKD-EPI) equation refit without adjustment for race Glucose [Mass/Vol] 187 mg/dL High 82 - 115 mg/dL [facility] Interpretation and review of laboratory results Abnormal [facility] Potassium [Moles/Vol] 4.4 mmol/L 3.5 - 5.1 mmol/L [facility] Comment on above: Plasma potassium ashley ues may be up to 0.5 mmol/L lower than serum values. Sodium [Moles/Vol] 138 mmol/L 136 - 145 mmol/L [facility] Urea nitrogen [Mass/Vol] 26 mg/dL High 9 - 23 mg/dL [facility] CBC W Auto Differential pane l (Bld)on 03-24-2025 Basophils (Bld) [#/Vol] 0 10*3/uL 0.0 - 0.2 10*3/uL [facility] Basophils/100 WBC (Bld) 0.4 % 0.0 - 2.0 % [facility] Eosinophils (Bld) [#/Vol] 0.4 10*3/uL 0.0 - 0.5 10*3/uL [facility] Eosinophils/100 WBC (Bld) 4 % 0.0 - 6.0 % [facility] Erythrocyte distribution width (RBC) [Ratio] 15.6 % High 11.5 - 15.0 % [facility] Hematocrit (Bld) [Volume fraction] 24.2 % Low 35.0 - 47.0 % [facility] Hemoglobin (Bld) [Mass/Vol] 7.9 g/dL Low 11.7 - 16.0 g/dL [facility] Immature granulocytes (Bld) [#/Vol] 0.1 10*3/uL High NINF - 0.1 10*3/uL [facility] Immature granulocytes/100 WBC (Bld) 0.5 % 0.0 - 2.0 % [facility] Interpretation and review of laboratory results Abnormal [facility] Lymphocytes (Bld) [#/Vol] 1.9 10*3/uL 1.0 - 4.3 10*3/uL [facility] Lymphocytes/100 WBC (Bld) 19.1 % 15.0 - 45.0 % [facility] MCH (RBC) [Entitic mass] 29.6 pg 26.0 - 34.0 pg [facility] MCHC (RBC) [Mass/Vol] 32.6 % 30.5 - 36.0 % [facility] MCV (RBC) [Entitic vol] 90.6 fL 77.0 - 99.0 fL [facility] Monocytes (Bld) [#/Vol] 0.9 10*3/uL 0.0 - 0.9 10*3/uL [facility] Monocytes/100 WBC (Bld) 9.7 % 5.0 - 13.0 % [facility] Neutrophils (Bld) [#/Vol] 6.4 10*3/uL 1.8 - 7.5 10*3/uL [facility] Neutrophils/100 WBC (Bld) 66.3 % 38.0 - 82.0 % [facility] Nucleated RBC/100 WBC (Bld) [Ratio] 0 % [facility] Platelet mean volume (Bld) [Entitic vol] 11.2 fL 9.0 - 12.7 fL [facility] Platelets (Bld) [#/Vol] 221 10*3/uL 140 - 440 10*3/uL [facility] RBC (Bld) [#/Vol] 2.67 10*6/uL Low 3.80 - 5.20 10*6/uL [facility] WBC (Bld) [#/Vol] 9.7 10*3/uL 3.6 - 10.7 10*3/uL [facility] CBC WITH AUTO DIFFERENTIALon 03-24-2025 Basophils (Bld) [#/Vol] 0.0 10*3/uL Normal 0.0-0.2 [facility] Comment on above: Performed By: #### L [id number] ####Rn Building: BROOKE RINCON ([id number])[facility])[address] [place] [address] Basophils/100 WBC (Bld) 0.4 % Normal 0.0-2.0 [facility] Comment on above: Performed By: #### L [id number] ####Rn Building: BROOKE RINCON ([id number])[facility])[address] [place] [address] Eosinophils (Bld) [#/Vol] 0.4 10*3/uL Normal 0.0-0.5 [facility] Comment on above: Performed By: #### L [id number] ####Rn Building: BROOKE RINCON ([id number])[facility])[address] [place] [address] Eosinophils/100 WBC (Bld) 4.0 % Normal 0.0-6.0 [facility] Comment on above: Performed By: #### L [id number] ####Rn Building: BROOKE RINCON ([id number])[facility])[address] [place] [address] Erythrocyte distribution width (RBC) [Ratio] 15.6 % High 11.5-15.0 [facility] Comment on above: Performed By: #### L [id number] ####Rn Building: BROOKE RINCON ([id number])[facility])[address] [place] [address] Hematocrit (Bld) [Volume fraction] 24.2 % Low 35.0-47.0 [facility] Comment on above: Performed By: #### L [id number] ####Rn Building: BROOKE RINCON ([id number])[facility])[address] [place] [address] Hemoglobin (Bld) [Mass/Vol] 7.9 g/dL Low 11.7-16.0 [facility] Comment on above: Performed By: #### L [id number] ####Rn Building: BROOKE RINCON ([id number])[facility])[address] [place] [address] IMMATURE GRANS % 0.5 % Normal 0.0-2.0 [facility] Comment on above: Performed By: #### L [id number] ####Rn Building: BROOKE RINCON ([id number])[address] IMMATURE GRANS ABSOLUTE 0.1 10*3/uL High <0.1 [facility] Comment on above: Performed By: #### L [id number] ####Rn Building: BROOKE RINCON ([id number])[facility])[address] [place] [address] Lymphocytes (Bld) [#/Vol] 1.9 10*3/uL Normal 1.0-4.3 [facility] Comment on above: Performed By: #### L [id number] ####Rn Building: BROOKE RINCON ([id number])[facility])[address] [place] [address] Lymphocytes/100 WBC (Bld) 19.1 % Normal 15.0-45.0 [facility] Comment on above: Performed By: #### L [id number] ####Rn Building: BROOKE RINCON ([id number])[address] MCH (RBC) [Entitic mass] 29.6 pg Normal 26.0-34.0 [facility] Comment on above: Performed By: #### L [id number] ####Rn Building: BROOKE RINCON ([id number])[facility] ([facility])[address] [place] [address] MCHC 32.6 % Normal 30.5-36.0 [facility] Comment on above: Performed By: #### L [id number] ####Rn Building: BROOKE RINCON ([id number])[facility] ([facility])[address] [place] [address] MCV (RBC) [Entitic vol] 90.6 fL Normal 77.0-99.0 [facility] Comment on above: Performed By: #### L [id number] ####Rn Building: BROOKE RINCON ([id number])[facility] ([facility])[address] [place] [address] Monocytes (Bld) [#/Vol] 0.9 10*3/uL Normal 0.0-0.9 [facility] Comment on above: Performed By: #### L [id number] ####Rn Building: BROKOE RINCON ([id number])[facility] ([facility])[address] [place] [address] Monocytes/100 WBC (Bld) 9.7 % Normal 5.0-13.0 [facility] Comment on above: Performed By: #### L [id number] ####Rn Building: BROOKE RINCON ([id number])[facility] ([facility])[address] [place] [address] NEUTROPHILS ABSOLUTE 6.4 10*3/uL Normal 1.8-7.5 [facility] Comment on above: Performed By: #### L [id number] ####Rn Building: BROOKE RINCON ([id number])[facility] ([facility])[address] [place] [address] Neutrophils/100 WBC (Bld) 66.3 % Normal 38.0-82.0 [facility] Comment on above: Performed By: #### L [id number] ####Rn Building: BROOKE RINCON ([id number])[facility] ([facility])[address] [place] [address] NRBC 0.0 /100 WBCs Normal 0.0-2.0 [facility] Comment on above: Performed By: #### L [id number] ####Rn Building: BROOKE RINCON ([id number])[facility])[address] [place] [address] Platelet mean volume (Bld) [Entitic vol] 11.2 fL Normal 9.0-12.7 [facility] Comment on above: Performed By: #### L [id number] ####Rn Building: BROOKE RINCON ([id number])[facility] ([facility])[address] [place] [address] Platelets (Bld) [#/Vol] 221 10*3/uL Normal 140-440 [facility] Comment on above: Performed By: #### L [id number] ####Rn Building: BROOKE RINCON ([id number])[facility])[address] [place] [address] RBC (Bld) [#/Vol] 2.67 10*6/uL Low 3.80-5.20 [facility] Comment on above: Performed By: #### L [id number] ####Rn Building: BROOKE RINCON ([id number])[facility])[address] [place] [address] WBC (Bld) [#/Vol] 9.7 10*3/uL Normal 3.6-10.7 [facility] Comment on above: Performed By: #### L [id number] ####Rn Building: BROOKE RINCON ([id number])[facility])[address] [place] [address] Laboratory - Chemistry and C hemistry - challengeon 03-24-2025 Glucose [Mass/Vol] 213 mg/dL High 70 - 100 mg/dL [facility] Glucose [Mass/Vol] 187 mg/dL High 70 - 100 mg/dL [facility] No Panel Informationon 03-24 Interpretation and review of laboratory results Abnormal [facility] Performed by: [place] [address] CLIA ID: [id number] [facility] Interpretation and review of laboratory results Abnormal [facility] Performed by: [facility], [address] [place] [address] CLIA ID: [id number] [facility] Nursing Noteon 03-24-2025 Nursing Note Normal [facility] Progress Noteon 03-24-2025 Progress Note Normal [facility] Progress Note Normal [facility] Progress Note Normal [facility] Progress Note Normal [facility] Progress Note Vancomycin therapy h as been discontinued by Brice Mota on 03/24/25. Thank you for the consult. Pharmacy signing off for vancomycin dosing. Norberto Cooper PharmD Date: 03/24/25 Time: 7:35 AM Normal [facility] 25-hydroxyvitamin D3 [Mass/V ol]on 03-23-2025 Interpretation and review of laboratory results Normal [facility] Target concentration : 30 - 40 ng/mL; toxicity seen at concentrations >100 ng/mL Less than 20 ng/mL: Indicative of Vit D deficiency Test performed by [employer], measuring Total Vitamin D, not individual fractions. [facility] [id number] 03-23-2025 [id number] Normal [facility] BASIC METABOLIC PANELon 03-12 Anion gap [Moles/Vol] 9 mmol/L Normal -13 [facility] Comment on above: Performed By: #### L [id number] ####Rn Building: BROOKE RINCON ([id number])[facility] ([facility])[address] [place] [address] [place] Calcium [Mass/Vol] 8.6 mg/dL Low 8.8-10.0 [facility] Comment on above: Performed By: #### L AB15 ####Rn Building: BROOKE RINCON ([id number])[facility] ([facility])[address] [place] [address] [place] Chloride [Moles/Vol] 108 mmol/L High 98-107 [facility] Comment on above: Performed By: #### L AB15 ####Rn Building: BROOKE RINCON ([id number])[facility] ([facility])[address] [place] [address] CO2 [Moles/Vol] 22 mmol/L Low 23-31 [facility] Comment on above: Performed By: #### L AB15 ####Rn Building: BROOKE RINCON ([id number])[facility])[address] [place] [address] Creatinine [Mass/Vol] 1.32 mg/dL High 0.57-1.11 [facility] Comment on above: Performed By: #### L AB15 ####Rn Building: BROOKE RINCON ([id number])[facility])[address] [place] [address] [place] GLOMERULAR FILTRATION RATE ML/MIN/1.73 SQ M.PREDICTED 39.6 mL/min/1.73m*2 Low >60.0 [facility] Comment on above: Result Comment: Calc ulation based on the Chronic Kidney Disease Epidemiology Collaboration (CKD-EPI) equation refit without adjustment for race Performed By: #### L AB15 ####Rn Building: BROOKE RINCON ([id number])[facility] ([facility])[address] [place] [address] [place] Glucose [Mass/Vol] 206 mg/dL High 82-115 [facility] Comment on above: Performed By: #### L AB15 ####Rn Building: BROOKE RINCON ([id number])[facility])[address] [place] [address] [place] Potassium [Moles/Vol] 4.5 mmol/L Normal 3.5-5.1 [facility] Comment on above: Result Comment: [facility] potassium values may be up to 0.5 mmol/L lower than serum values. Performed By: #### L AB15 ####Rn Building: BROOKE RINCON ([id number])[facility])[address] [place] [address] [place] Sodium [Moles/Vol] 139 mmol/L Normal 136-145 [facility] Comment on above: Performed By: #### L AB15 ####Rn Building: BROOKE RINCON ([id number])[facility] [place] [address] Urea nitrogen [Mass/Vol] 28 mg/dL High 9-23 [facility] Comment on above: Performed By: #### L AB15 ####Rn Building: BROOKE RINCON ([id number])[facility])[address] [place] [address] Basic metabolic 1998 panelon 03-23-2025 Anion gap [Moles/Vol] 9 mmol/L 3 - 13 mmol/L [facility] Calcium [Mass/Vol] 8.6 mg/dL Low 8.8 - 10. 0 mg/dL [facility] Chloride [Moles/Vol] 108 mmol/L High 98 - 10 7 mmol/L [facility] CO2 [Moles/Vol] 22 mmol/L Low 23 - 31 mmol/L [facility] Creatinine [Mass/Vol] 1.32 mg/dL High 0.57 - 1.11 mg/dL [facility] GFR/1.73 sq M.predicted (S/P/Bld) [Vol rate/Area] 39.6 mL/min Low - PINF [facility] Comment on above: Calculation based on the Chronic Kidney Disease Epidemiology Collaboration (CKD-EPI) equation refit without adjustment for race Glucose [Mass/Vol] 206 mg/dL High 82 - 115 mg/dL [facility] Interpretation and review of laboratory results Abnormal [facility] Potassium [Moles/Vol] 4.5 mmol/L 3.5 - 5.1 mmol/L [facility] Comment on above: Plasma potassium ashley ues may be up to 0.5 mmol/L lower than serum values. Sodium [Moles/Vol] 139 mmol/L 136 - 145 mmol/L [facility] Urea nitrogen [Mass/Vol] 28 mg/dL High 9 - 23 mg/dL [facility] CBC W Auto Differential pane l (Bld)on 03-23-2025 Basophils (Bld) [#/Vol] 0.1 10*3/uL 0.0 - 0.2 10*3/uL [facility] Basophils/100 WBC (Bld) 0.6 % 0.0 - 2.0 % [facility] Eosinophils (Bld) [#/Vol] 0.3 10*3/uL 0.0 - 0.5 10*3/uL [facility] Eosinophils/100 WBC (Bld) 3.2 % 0.0 - 6.0 % [facility] Erythrocyte distribution width (RBC) [Ratio] 16 % High 11.5 - 15.0 % [facility] Hematocrit (Bld) [Volume fraction] 26.1 % Low 35.0 - 47.0 % [facility] Hemoglobin (Bld) [Mass/Vol] 8.4 g/dL Low 11.7 - 16.0 g/dL [facility] Immature granulocytes (Bld) [#/Vol] 0.1 10*3/uL High NINF - 0.1 10*3/uL [facility] Immature granulocytes/100 WBC (Bld) 0.6 % 0.0 - 2.0 % [facility] Interpretation and review of laboratory results Abnormal [facility] Lymphocytes (Bld) [#/Vol] 1.5 10*3/uL 1.0 - 4.3 10*3/uL [facility] Lymphocytes/100 WBC (Bld) 17.2 % 15.0 - 45.0 % [facility] MCH (RBC) [Entitic mass] 29.6 pg 26.0 - 34.0 pg [facility] MCHC (RBC) [Mass/Vol] 32.2 % 30.5 - 36.0 % [facility] MCV (RBC) [Entitic vol] 91.9 fL 77.0 - 99.0 fL [facility] Monocytes (Bld) [#/Vol] 0.9 10*3/uL 0.0 - 0.9 10*3/uL [facility] Monocytes/100 WBC (Bld) 10.4 % 5.0 - 13.0 % [facility] Neutrophils (Bld) [#/Vol] 6 10*3/uL 1.8 - 7.5 10*3/uL [facility] Neutrophils/100 WBC (Bld) 68 % 38.0 - 82.0 % [facility] Nucleated RBC/100 WBC (Bld) [Ratio] 0 % [facility] Platelet mean volume (Bld) [Entitic vol] 11 fL 9.0 - 12.7 fL [facility] Platelets (Bld) [#/Vol] 180 10*3/uL 140 - 440 10*3/uL [facility] RBC (Bld) [#/Vol] 2.84 10*6/uL Low 3.80 - 5.20 10*6/uL [facility] WBC (Bld) [#/Vol] 8.8 10*3/uL 3.6 - 10.7 10*3/uL [facility] CBC WITH AUTO DIFFERENTIALon 03-23-2025 Basophils (Bld) [#/Vol] 0.1 10*3/uL Normal 0.0-0.2 [facility] Comment on above: Performed By: #### L [id number] ####Rn Building: BROOKE RINCON ([id number])[facility])[address] [place] [address] Basophils/100 WBC (Bld) 0.6 % Normal 0.0-2.0 [facility] Comment on above: Performed By: #### L [id number] ####Rn Building: BROOKE RINCON ([id number])[facility])[address] [place] [address] Eosinophils (Bld) [#/Vol] 0.3 10*3/uL Normal 0.0-0.5 [facility] Comment on above: Performed By: #### L [id number] ####Rn Building: BROOKE RINCON ([id number])[facility])[address] [place] [address] Eosinophils/100 WBC (Bld) 3.2 % Normal 0.0-6.0 [facility] Comment on above: Performed By: #### L [id number] ####Rn Building: BROOKE RINCON ([id number])[facility])[address] [place] [address] Erythrocyte distribution width (RBC) [Ratio] 16.0 % High 11.5-15.0 [facility] Comment on above: Performed By: #### L [id number] ####Rn Building: BROOKE RINCON ([id number])[facility])[address] [place] [address] Hematocrit (Bld) [Volume fraction] 26.1 % Low 35.0-47.0 [facility] Comment on above: Performed By: #### L [id number] ####Rn Building: BROOKE RINCON ([id number])[facility])[address] [place] [address] Hemoglobin (Bld) [Mass/Vol] 8.4 g/dL Low 11.7-16.0 [facility] Comment on above: Performed By: #### L [id number] ####Rn Building: BROOKE RINCON ([id number])[facility])[address] [place] [address] IMMATURE GRANS % 0.6 % Normal 0.0-2.0 [facility] Comment on above: Performed By: #### L [id number] ####Rn Building: BROOKE RINCON ([id number])[facility])[address] [place] [address] IMMATURE GRANS ABSOLUTE 0.1 10*3/uL High <0.1 [facility] Comment on above: Performed By: #### L [id number] ####Rn Building: BROOKE RINCON ([id number])[facility])[address] [place] [address] Lymphocytes (Bld) [#/Vol] 1.5 10*3/uL Normal 1.0-4.3 [facility] Comment on above: Performed By: #### L [id number] ####Rn Building: BROOKE RINCON ([id number])[facility])[address] [place] [address] Lymphocytes/100 WBC (Bld) 17.2 % Normal 15.0-45.0 [facility] Comment on above: Performed By: #### L [id number] ####Rn Building: BROOKE RINCON ([id number])[address] MCH (RBC) [Entitic mass] 29.6 pg Normal 26.0-34.0 [facility] Comment on above: Performed By: #### L [id number] ####Rn Building: BROOKE RINCON ([id number])[facility] [place] [address] MCHC 32.2 % Normal 30.5-36.0 [facility] Comment on above: Performed By: #### L [id number] ####Rn Building: BROOKE RINCON ([id number])[facility] ([facility])[address] [place] [address] MCV (RBC) [Entitic vol] 91.9 fL Normal 77.0-99.0 [facility] Comment on above: Performed By: #### L [id number] ####Rn Building: BROOKE RINCON ([id number])[facility] ([facility])[address] [place] [address] Monocytes (Bld) [#/Vol] 0.9 10*3/uL Normal 0.0-0.9 [facility] Comment on above: Performed By: #### L [id number] ####Rn Building: BROOKE RINCON ([id number])[facility] ([facility])[address] [place] [address] Monocytes/100 WBC (Bld) 10.4 % Normal 5.0-13.0 [facility] Comment on above: Performed By: #### L [id number] ####Rn Building: BROOKE RINCON ([id number])[facility] ([facility])[address] [place] [address] NEUTROPHILS ABSOLUTE 6.0 10*3/uL Normal 1.8-7.5 [facility] Comment on above: Performed By: #### L [id number] ####Rn Building: BROOKE RINCON ([id number])[facility])[address] [place] [address] Neutrophils/100 WBC (Bld) 68.0 % Normal 38.0-82.0 [facility] Comment on above: Performed By: #### L [id number] ####Rn Building: BROOKE RINCON ([id number])[facility] ([facility])[address] [place] [address] NRBC 0.0 /100 WBCs Normal 0.0-2.0 [facility] Comment on above: Performed By: #### L [id number] ####Rn Building: BROOKE RINCON ([id number])[facility])[address] [place] [address] Platelet mean volume (Bld) [Entitic vol] 11.0 fL Normal 9.0-12.7 [facility] Comment on above: Performed By: #### L [id number] ####Rn Building: BROOKE RINCON ([id number])[facility])[address] [place] [address] Platelets (Bld) [#/Vol] 180 10*3/uL Normal 140-440 [facility] Comment on above: Performed By: #### L [id number] ####Rn Building: BROOKE RINCON ([id number])[facility])[address] [place] [address] RBC (Bld) [#/Vol] 2.84 10*6/uL Low 3.80-5.20 [facility] Comment on above: Performed By: #### L [id number] ####Rn Building: BROOKE RINCON ([id number])[facility])[address] [place] [address] WBC (Bld) [#/Vol] 8.8 10*3/uL Normal 3.6-10.7 [facility] Comment on above: Performed By: #### L [id number] ####Rn Building: BROOKE RINCON ([id number])[facility])[address] [place] [address] Laboratory - Chemistry and C hemistry - challengeon 03-23-2025 Glucose [Mass/Vol] 276 mg/dL High 70 - 100 mg/dL [facility] Glucose [Mass/Vol] 271 mg/dL High 70 - 100 mg/dL [facility] Glucose [Mass/Vol] 299 mg/dL High 70 - 100 mg/dL [facility] Glucose [Mass/Vol] 217 mg/dL High 70 - 100 mg/dL [facility] 25-hydroxyvitamin D3 [Mass/Vol] 45 ng/mL 20 - 50 ng/mL [facility] Laboratory - Drug toxicology on 03-23-2025 Vancomycin trough [Mass/Vol] 17.7 ug/mL [facility] No Panel Informationon 03-23 Interpretation and review of laboratory results Abnormal [facility] Performed by: [facility], [address] [place] [id number] CLIA ID: [id number] [facility] Interpretation and review of laboratory results Abnormal [facility] Performed by: [facility], [address] [place] [id number] CLIA ID: [id number] [facility] Interpretation and review of laboratory results Abnormal [facility] Performed by: [facility], [address] [place] [id number] CLIA ID: [id number] [facility] Interpretation and review of laboratory results Abnormal [facility] Performed by: [facility], [address] [place] [address] CLIA ID: [id number] [facility] Progress Noteon 03-23-2025 Progress Note Normal [facility] Progress Note Normal [facility] Progress Note Normal [facility] Progress Note Normal [facility] Progress Note Normal [facility] Progress Note Normal [facility] VANCOMYCIN, AUC TIMED DOSING on 03-23-2025 VANCOMYCIN, AUC 17.7 ug/mL Normal [facility] Comment on above: Result Comment: CARLTON Geiger COMMENTS:Please draw random level at least >2 hours after the end of the last vancomycin infusion, or 30-minutes before next infusion.Toxicity is seen at concentrations >80-100 ug/mLTherapeutic (Peak) range: 20-40Therapeutic (Trough) range: 5-10 Performed By: #### L AB39 ####Rn Building: BROOKE RINCON ([id number])[facility] ([facility])[address] [place] [address] VITAMIN D DEFICIENCY SCREENI NG (VIT D 25)on 03-23-2025 VIT D 25-OH, TOTAL 45 ng/mL Normal See comment [facility] Comment on above: Result Comment: CARLTON Geiger COMMENTS:Target concentration: 30 - 40 ng/mL; toxicity seen at concentrations >100 ng/mLLess than 20 ng/mL: Indicative of Vit D deficiencyTest performed by [employer], measuring Total Vitamin D, not individual fractions. Performed By: #### L [id number] ####Rn Building: BROOKE RINCON ([id number])[facility] ([facility])[address] [place] [address] Vancomycin trough [Mass/Vol] on 03-23-2025 Toxicity is seen at concentrations >80-100 ug/mL Therapeutic (Peak) range: 20-40 Therapeutic (Trough) range: 5-10 [facility] [id number] 03-22-2025 [id number] Normal [facility] [id number] 03-22-2025 [id number] Social work introduc ed self to patient. Social work completed 30 day readmission survey at bedside with patient. Normal [facility] [id number] Normal [facility] BASIC METABOLIC PANELon 03-12 Anion gap [Moles/Vol] 9 mmol/L Normal 3-13 [facility] Comment on above: Performed By: #### L AB96, LAB15, LAB89, LAB20 ####Rn Building: BROOKE RINCON ([id number])[facility] ([facility])[address] [place] [address] Calcium [Mass/Vol] 8.0 mg/dL Low 8.8-10.0 [facility] Comment on above: Performed By: #### L AB96, LAB15, LAB89, LAB20 ####Rn Building: BROOKE RINCON ([id number])[facility] ([facility])[address] [place] [address] Chloride [Moles/Vol] 105 mmol/L Normal 98-107 [facility] Comment on above: Performed By: #### L AB96, LAB15, LAB89, LAB20 ####Rn Building: BROOKE RINCON ([id number])[facility] ([facility])[address] [place] [address] CO2 [Moles/Vol] 19 mmol/L Low 23-31 [facility] Comment on above: Performed By: #### L AB96, LAB15, LAB89, LAB20 ####Rn Building: BROOKE RINCON ([id number])[facility])[address] [place] [address] Creatinine [Mass/Vol] 1.45 mg/dL High 0.57-1.11 [facility] Comment on above: Performed By: #### L AB96, LAB15, LAB89, LAB20 ####Rn Building: BROOKE RINCON ([id number])[facility])[address] [place] [address] GLOMERULAR FILTRATION RATE ML/MIN/1.73 SQ M.PREDICTED 35.4 mL/min/1.73m*2 Low >60.0 [facility] Comment on above: Result Comment: Calc ulation based on the Chronic Kidney Disease Epidemiology Collaboration (CKD-EPI) equation refit without adjustment for race Performed By: #### L AB96, LAB15, LAB89, LAB20 ####Rn Building: BROOKE RINCON ([id number])[facility])[address] [place] [address] Glucose [Mass/Vol] 223 mg/dL High 82-115 [facility] Comment on above: Performed By: #### L AB96, LAB15, LAB89, LAB20 ####Rn Building: BROOKE RINCON ([id number])[facility])[address] [place] [address] Potassium [Moles/Vol] 4.5 mmol/L Normal 3.5-5.1 [facility] Comment on above: Result Comment: [facility] potassium values may be up to 0.5 mmol/L lower than serum values. Performed By: #### L AB96, LAB15, LAB89, LAB20 ####Rn Building: BROOKE RINCON ([id number])[facility])[address] [place] [address] Sodium [Moles/Vol] 133 mmol/L Low 136-145 [facility] Comment on above: Performed By: #### L AB96, LAB15, LAB89, LAB20 ####Rn Building: BROOKE RINCON ([id number])[facility] [place] [address] Urea nitrogen [Mass/Vol] 37 mg/dL High 9-23 [facility] Comment on above: Performed By: #### L AB96, LAB15, LAB89, LAB20 ####Rn Building: BROOKE RINCON ([id number])[facility] [place] [address] Basic metabolic 1998 panelon 03-22-2025 Anion gap [Moles/Vol] 9 mmol/L 3 - 13 mmol/L [facility] [employer] Calcium [Mass/Vol] 8 mg/dL Low 8.8 - 10. 0 mg/dL [facility] [employer] Chloride [Moles/Vol] 105 mmol/L 98 - 10 7 mmol/L [facility] [employer] CO2 [Moles/Vol] 19 mmol/L Low 23 - 31 mmol/L [facility] Creatinine [Mass/Vol] 1.45 mg/dL High 0.57 - 1.11 mg/dL [facility] GFR/1.73 sq M.predicted (S/P/Bld) [Vol rate/Area] 35.4 mL/min Low - PINF [facility] Comment on above: Calculation based on the Chronic Kidney Disease Epidemiology Collaboration (CKD-EPI) equation refit without adjustment for race Glucose [Mass/Vol] 223 mg/dL High 82 - 115 mg/dL [facility] Interpretation and review of laboratory results Abnormal [facility] Potassium [Moles/Vol] 4.5 mmol/L 3.5 - 5.1 mmol/L [facility] Comment on above: Plasma potassium ashley ues may be up to 0.5 mmol/L lower than serum values. Sodium [Moles/Vol] 133 mmol/L Low 136 - 145 mmol/L [facility] [employer] Urea nitrogen [Mass/Vol] 37 mg/dL High 9 - 23 mg/dL [facility] CBC W Auto Differential pane l (Bld)Ordered By: Roxy Quinonez on 03-22-2025 Basophils (Bld) [#/Vol] 0 10*3/uL 0.0 - 0.2 10*3/uL [facility] Basophils/100 WBC (Bld) 0.2 % 0.0 - 2.0 % [facility] Eosinophils (Bld) [#/Vol] 0 10*3/uL 0.0 - 0.5 10*3/uL [facility] Eosinophils/100 WBC (Bld) 0.4 % 0.0 - 6.0 % [facility] Erythrocyte distribution width (RBC) [Ratio] 16 % High 11.5 - 15.0 % [facility] Hematocrit (Bld) [Volume fraction] 20.6 % Low 35.0 - 47.0 % [facility] Hemoglobin (Bld) [Mass/Vol] 6.7 g/dL Critically low 11.7 - 16.0 g/dL [facility] Immature granulocytes (Bld) [#/Vol] 0.1 10*3/uL High NINF - 0.1 10*3/uL [facility] Immature granulocytes/100 WBC (Bld) 0.8 % 0.0 - 2.0 % [facility] Interpretation and review of laboratory results Abnormal [facility] IPF 4 [facility] Lymphocytes (Bld) [#/Vol] 1.5 10*3/uL 1.0 - 4.3 10*3/uL [facility] Lymphocytes/100 WBC (Bld) 16.5 % 15.0 - 45.0 % [facility] MCH (RBC) [Entitic mass] 29.8 pg 26.0 - 34.0 pg [facility] MCHC (RBC) [Mass/Vol] 32.5 % 30.5 - 36.0 % [facility] MCV (RBC) [Entitic vol] 91.6 fL 77.0 - 99.0 fL [facility] Monocytes (Bld) [#/Vol] 1.1 10*3/uL High 0.0 - 0.9 10*3/uL [facility] Monocytes/100 WBC (Bld) 11.8 % 5.0 - 13.0 % [facility] Neutrophils (Bld) [#/Vol] 6.4 10*3/uL 1.8 - 7.5 10*3/uL [facility] Neutrophils/100 WBC (Bld) 70.3 % 38.0 - 82.0 % [facility] Nucleated RBC/100 WBC (Bld) [Ratio] 0 % [facility] Platelet mean volume (Bld) [Entitic vol] 11.5 fL 9.0 - 12.7 fL [facility] Platelets (Bld) [#/Vol] 157 10*3/uL 140 - 440 10*3/uL [facility] RBC (Bld) [#/Vol] 2.25 10*6/uL Low 3.80 - 5.20 10*6/uL [facility] WBC (Bld) [#/Vol] 9.1 10*3/uL 3.6 - 10.7 10*3/uL [facility] CBC WITH AUTO DIFFERENTIALon 03-22-2025 Basophils (Bld) [#/Vol] 0.0 10*3/uL Normal 0.0-0.2 [facility] Comment on above: Performed By: #### L [id number] ####Rn Building: BROOKE RINCON ([id number])[facility])[address] [place] [address] Basophils/100 WBC (Bld) 0.2 % Normal 0.0-2.0 [facility] Comment on above: Performed By: #### L [id number] ####Rn Building: BROOKE RINCON ([id number])[facility] ([facility])[address] [place] [address] Eosinophils (Bld) [#/Vol] 0.0 10*3/uL Normal 0.0-0.5 [facility] Comment on above: Performed By: #### L [id number] ####Rn Building: BROOKE RINCON ([id number])[facility] ([facility])[address] [place] [address] Eosinophils/100 WBC (Bld) 0.4 % Normal 0.0-6.0 [facility] Comment on above: Performed By: #### L [id number] ####Rn Building: BROOKE RINCON ([id number])[facility])[address] [place] [address] Erythrocyte distribution width (RBC) [Ratio] 16.0 % High 11.5-15.0 [facility] Comment on above: Performed By: #### L [id number] ####Rn Building: BROOKE RINCON ([id number])[facility] [address] Hematocrit (Bld) [Volume fraction] 20.6 % Low 35.0-47.[address] [facility] Comment on above: Performed By: #### L [id number] ####Rn Building: BROOKE RINCON ([id number])[facility])[address] [place] [address] Hemoglobin (Bld) [Mass/Vol] 6.7 g/dL Critically low 11.7-16.[address] [facility] Comment on above: Performed By: #### L [id number] ####Rn Building: BROOKE RINCON ([id number])[facility])[address] [place] [address] IMMATURE GRANS % 0.8 % Normal 0.0-2.[address] [facility] Comment on above: Performed By: #### L [id number] ####Rn Building: BROOKE RINCON ([id number])[facility])[address] [place] [address] IMMATURE GRANS ABSOLUTE 0.1 10*3/uL High <0.[address] [facility] Comment on above: Performed By: #### L [id number] ####Rn Building: BROOKE RINCON ([id number])[facility])[address] [place] [address] [place] IPF [address] [facility] Comment on above: Performed By: #### L [id number] ####Rn Building: BROOKE RINCON ([id number])[facility])[address] [place] [address] Lymphocytes (Bld) [#/Vol] 1.5 10*3/uL Normal 1.0-4.[address] [facility] Comment on above: Performed By: #### L [id number] ####Rn Building: BROOKE RINCON ([id number])[facility])[address] [place] [address] Lymphocytes/100 WBC (Bld) 16.5 % Normal 15.0-45.[address] [facility] Comment on above: Performed By: #### L [id number] ####Rn Building: BROOKE RINCON ([id number])[facility] ([facility])[address] [place] [address] MCH (RBC) [Entitic mass] 29.8 pg Normal 26.0-34.0 [facility] Comment on above: Performed By: #### L [id number] ####Rn Building: BROOKE RINCON ([id number])[facility] ([facility])[address] [place] [address] MCHC 32.5 % Normal 30.5-36.0 [facility] Comment on above: Performed By: #### L [id number] ####Rn Building: BROOKE RINCON ([id number])[facility])[address] [place] [address] MCV (RBC) [Entitic vol] 91.6 fL Normal 77.0-99.0 [facility] Comment on above: Performed By: #### L [id number] ####Rn Building: BROOKE RINCON ([id number])[facility] ([facility])[address] [place] [address] Monocytes (Bld) [#/Vol] 1.1 10*3/uL High 0.0-0.9 [facility] Comment on above: Performed By: #### L [id number] ####Rn Building: BROOKE RINCON ([id number])[facility] ([facility])[address] [place] [address] Monocytes/100 WBC (Bld) 11.8 % Normal 5.0-13.0 [facility] Comment on above: Performed By: #### L [id number] ####Rn Building: BROOKE RINCON ([id number])[facility] ([facility])[address] [place] [address] NEUTROPHILS ABSOLUTE 6.4 10*3/uL Normal 1.8-7.5 [facility] Comment on above: Performed By: #### L [id number] ####Rn Building: BROOKE RINCON ([id number])[facility])[address] [place] [address] Neutrophils/100 WBC (Bld) 70.3 % Normal 38.0-82.0 [facility] Comment on above: Performed By: #### L [id number] ####Rn Building: BROOKE RINCON ([id number])[facility] ([facility])[address] [place] [address] NRBC 0.0 /100 WBCs Normal 0.0-2.0 [facility] Comment on above: Performed By: #### L [id number] ####Rn Building: BROOKE RINCON ([id number])[facility])[address] [place] [address] Platelet mean volume (Bld) [Entitic vol] 11.5 fL Normal 9.0-12.7 [facility] Comment on above: Performed By: #### L [id number] ####Rn Building: BROOKE RINCON ([id number])[facility] ([facility])[address] [place] [address] Platelets (Bld) [#/Vol] 157 10*3/uL Normal 140-440 [facility] Comment on above: Performed By: #### L [id number] ####Rn Building: BROOKE RINCON ([id number])[facility] ([facility])[address] [place] [address] RBC (Bld) [#/Vol] 2.25 10*6/uL Low 3.80-5.20 [facility] Comment on above: Performed By: #### L [id number] ####Rn Building: BROOKE RINCON ([id number])[facility] ([facility])[address] [place] [address] WBC (Bld) [#/Vol] 9.1 10*3/uL Normal 3.6-10.7 [facility] Comment on above: Performed By: #### L [id number] ####Rn Building: BROOKE RINCON ([id number])[facility] ([facility])[address] [place] [address] CORTISOLon 03-22-2025 CORTISOL 10.7 ug/dL Normal 3.7-19.4 [facility] Comment on above: Result Comment: CARLTON Geiger COMMENTS:Collect at 8AM +/- 1 hourBefore 10am 4.5-22.7 ug/dLAfter 5pm 1.7-14.1 ug/dL Performed By: #### L AB69, LAB68, LAB61, LAB67 ####Rn Building: BROOKE RINCON ([id number])[facility])[address] [place] [address] Cobalamin (Vitamin B12) [Mas s/Vol]on 03-22-2025 Interpretation and review of laboratory results Normal [facility] Consulton 03-22-2025 Consult Normal [facility] Consult Normal [facility] FERRITINon 03-22-2025 Ferritin [Mass/Vol] 322 ng/mL High 5-204 [facility] Comment on above: Result Comment: CARLTON Geiger COMMENTS:Ferritin levels below 10 ng/mL have been reported as indicative of iron deficiency anemia. Performed By: #### L AB69, LAB68, LAB61, LAB67 ####Rn Building: BROOKE RINCON ([id number])[address] FOLATEon 03-22-2025 FOLATE RESULT 4.1 ng/mL Low 7.0-31.4 [facility] Comment on above: Performed By: #### L AB69, LAB68, LAB61, LAB67 ####Rn Building: BROOKE RINCON ([id number])[facility])[address] [place] [address] Ferritin [Mass/Vol]on 2024 Interpretation and review of laboratory results Abnormal [facility] Ferritin levels belo w 10 ng/mL have been reported as indicative of iron deficiency anemia. [facility] Folate [Mass/Vol]on 03-22-20 Interpretation and review of laboratory results Abnormal [facility] HAPTOGLOBINon 03-22-2025 HAPTOGLOBIN 129 mg/dL Normal 50-270 [facility] Comment on above: Performed By: #### L AB96, LAB15, LAB89, LAB20 ####Rn Building: BROOKE RINCON ([id number])[facility] ([facility])[address] [place] [address] HEMOGLOBIN AND HEMATOCRIT, B LOODon 03-22-2025 Hematocrit (Bld) [Volume fraction] 25.6 % Low 35.0-47.0 [facility] Comment on above: Performed By: #### L [id number], [id number] ####Rn Building: BROOKE RINCON ([id number])[facility] ([facility])[address] [place] [address] Hemoglobin (Bld) [Mass/Vol] 8.2 g/dL Low 11.7-16.0 [facility] Comment on above: Performed By: #### L AB753, [id number] ####Rn Building: BROOKE RINCON ([id number])[facility] ([facility])[address] [place] [address] HEPATIC FUNCTION PANELon Albumin [Mass/Vol] 3.2 g/dL Low 3.4-4.8 [facility] Comment on above: Performed By: #### L AB96, LAB15, LAB89, LAB20 ####Rn Building: BROOKE RINCON ([id number])[facility])[address] [place] [address] ALP [Catalytic activity/Vol] 36 U/L Low 40-150 [facility] Comment on above: Performed By: #### L AB96, LAB15, LAB89, LAB20 ####Rn Building: BROOKE RINCON ([id number])[facility])[address] [place] [address] ALT [Catalytic activity/Vol] 9 U/L Normal <30 [facility] Comment on above: Performed By: #### L AB96, LAB15, LAB89, LAB20 ####Rn Building: BROOKE RINCON ([id number])[facility])[address] [place] [address] AST [Catalytic activity/Vol] 28 U/L Normal <34 [facility] Comment on above: Performed By: #### L AB96, LAB15, LAB89, LAB20 ####Rn Building: BROOKE RINCON ([id number])[address] Bilirubin [Mass/Vol] 0.6 mg/dL Normal <1.2 [facility] Comment on above: Performed By: #### L AB96, LAB15, LAB89, LAB20 ####Rn Building: BROOKE RINCON ([id number])[facility])[address] [place] [address] Bilirubin.indirect [Mass/Vol] 0.2 mg/dL Normal <0.5 [facility] Comment on above: Performed By: #### L AB96, LAB15, LAB89, LAB20 ####Rn Building: BROOKE RINCON ([id number])[address] Protein [Mass/Vol] 5.8 g/dL Low 6.4-8.3 [facility] Comment on above: Result Comment: Seru m protein values are higher than plasma values. Samples from recumbent persons are lower by up to 0.5 g/dL as compared to ambulatory persons. After 60 years values are lower by up to 0.2 g/dL. Performed By: #### L AB96, LAB15, LAB89, LAB20 ####Rn Building: BROOKE RINCON ([id number])[address] Hemoglobin (Bld) [Mass/Vol]o n 03-22-2025 Hematocrit (Bld) [Volume fraction] 25.6 % Low 35.0 - 47.0 % [facility] Interpretation and review of laboratory results Abnormal [facility] Hepatic function 2000 panelo n 03-22-2025 Albumin [Mass/Vol] 3.2 g/dL Low 3.4 - 4.8 g/dL [facility] ALP [Catalytic activity/Vol] 36 U/L Low 40 - 150 U/L [facility] ALT [Catalytic activity/Vol] 9 U/L NINF - 30 U/L [facility] AST [Catalytic activity/Vol] 28 U/[facility]/L [facility] Bilirubin [Mass/Vol] 0.6 mg/dL [facility] 1.2 mg/dL [facility] Bilirubin.conjugated [Mass/Vol] 0.2 mg/dL [facility] - 0.5 mg/dL [facility] Interpretation and review of laboratory results Abnormal [facility] Protein [Mass/Vol] 5.8 g/dL Low 6.4 - 8.3 g/dL [facility] Comment on above: Serum protein values are higher than plasma values. Samples from recumbent persons are lower by up to 0.5 g/dL as compared to ambulatory persons. After 60 years values are lower by up to 0.2 g/dL. [facility] LACTATE DEHYDROGENASEon 03-12 LDH [Catalytic activity/Vol] 216 U/L Normal 125-220 [facility] Comment on above: Result Comment: TCSi gnificant interference from hemolysis. Result integrity compromised. Interpret with caution. Performed By: #### L AB96, LAB15, LAB89, LAB20 ####Rn Building: BROOKE RINCON ([id number])[address] LACTIC ACID WITH REFLEXon Lactate [Moles/Vol] 2.1 mmol/L Normal 0.5-2.2 [facility] Comment on above: Performed By: #### L [id number] ####Rn Building: BROOKE RINCON ([id number])[facility])[address] [place] [address] Lactate [Moles/Vol] 2.3 mmol/L High 0.5-2.2 [facility] Comment on above: Performed By: #### L [id number] ####Rn Building: BROOKE RINCON ([id number])[facility])[address] [place] [address] LDH Lactate to pyruvate reac tion [Catalytic activity/Vol]on 03-22-2025 Interpretation and review of laboratory results Normal [facility] - Chemistry and C hemistry - challengeon 03-22-2025 Folate [Mass/Vol] 4.1 ng/mL Low 7.0 - 31.4 ng/mL [facility] Cobalamin (Vitamin B12) [Mass/Vol] 231 pg/mL 213 - 816 pg/mL [facility] Ferritin [Mass/Vol] 322 ng/mL High 5 - 204 ng/mL [facility] Glucose [Mass/Vol] 244 mg/dL High 70 - 100 mg/dL [facility] Glucose [Mass/Vol] 191 mg/dL High 70 - 100 mg/dL [facility] Glucose [Mass/Vol] 195 mg/dL High 70 - 100 mg/dL [facility] Glucose [Mass/Vol] 262 mg/dL High 70 - 100 mg/dL [facility] Cortisol [Mass/Vol] 10.7 ug/dL 3.7 - 19 .4 ug/dL [facility] Glucose [Mass/Vol] 220 mg/dL High 70 - 100 mg/dL [facility] Lactate [Moles/Vol] 2.1 mmol/L 0.5 - 2. 2 mmol/L [facility] LDH Lactate to pyruvate reaction [Catalytic activity/Vol] 216 U/L 125 - 220 U/L [facility] Comment on above: TC Significant interference from hemolysis. Result integrity compromised. Interpret with caution. Lactate [Moles/Vol] 2.3 mmol/L High 0.5 - 2. 2 mmol/L [facility] - Hematology and Cell countson 03-22-2025 Haptoglobin [Mass/Vol] 129 mg/dL 50 - 270 mg/dL [facility] Hemoglobin (Bld) [Mass/Vol] 8.2 g/dL Low 11.7 - 16.0 g/dL [facility] No Panel Informationon 03-22 Interpretation and review of laboratory results Abnormal [facility] Performed by: [address] [address] CLIA ID: [id number] [facility] Interpretation and review of laboratory results Abnormal [facility] Performed by: [address] [address] CLIA ID: [id number] [facility] Interpretation and review of laboratory results Abnormal [facility] Performed by: [address] [address] CLIA ID: [id number] [facility] Interpretation and review of laboratory results Abnormal [facility] Performed by: [facility], [address] [place] [address] CLIA ID: [id number] [facility] Interpretation and review of laboratory results Normal [facility] Before 10am 4.5-22.7 ug/dL After 5pm 1.7-14.1 ug/dL [facility] Interpretation and review of laboratory results Normal [facility] Interpretation and review of laboratory results Abnormal [facility] Performed by: [facility], [address] [place] [address] CLIA ID: [id number] [facility] Interpretation and review of laboratory results Normal [facility] Blood Expiration Date [id number] [facility] Crossmatch interpretation COMP [facility] Dispense Status Transfused [facility] Product Blood Type 6200 [facility] PRODUCT CODE [id number] [facility] ABO A [facility] Number [id number] [facility] RH Positive [facility] Volume 300 mL [facility] Interpretation and review of laboratory results Abnormal [facility] Progress Noteon 03-22-2025 Progress Note Normal [facility] SHS Progress Note Normal [facility] SHS Progress Note Normal [facility] SHS Progress Note Normal [facility] SHS Progress Note Normal [facility] SHS RETICULOCYTESon 03-22-2025 Reticulocytes/100 RBC (Bld) 2.07 % Normal [facility] SHS Comment on above: Result Comment: Newb orn < 5%Adults 0.4 - 2.0% Performed By: #### L AB753, [id number] ####Rn Building: BROOKE RINCON ([id number])[facility] ([facility])[address] [place], [place] [id number] [facility] Reticulocytes panel (Bld)Ord ered By: Brooke Serna on 03-22-2025 Reticulocytes/100 RBC (Bld) 2.07 % [facility] Comment on above: < 5% Adults 0.4 - 2.0% [facility] VITAMIN B12on 03-22-2025 Cobalamin (Vitamin B12) [Mass/Vol] 231 pg/mL Normal 213-816 [facility] SHS Comment on above: Performed By: #### L AB69, LAB68, LAB61, LAB67 ####Rn Building: BROOKE RINCON ([id number])[facility] [place] [address] [place] [id number] 03-21-2025 [id number] Normal [facility] Airwayon 03-21-2025 Juliana Velasquez PRN - [employer] 03/21/2025 8:15 AM Airway Date/Time: 03/21/2025 7:51 AM Reason: emergent Airway not difficult General Information and Staff Patient location during procedure: Procedural Resident/[employer]: Yordan Gannon 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 - [employer] Performed: [employer] Patient Condition Indications for airway management: anesthesia and airway protection Patient position: sniffing Sedation level: RSI Final Airway Details Preoxygenated: yes Final airway type: endotracheal airway Successful airway: ETT Cuffed: yes Successful intubation technique: direct laryngoscopy Adjuncts used in placement: intubating stylet Endotracheal tube insertion site: oral Blade: Temple Blade size: #2 ETT size (mm): 7.0 Cormack-Lehane Classification: grade I - full view of glottis Placement verified by: chest auscultation and capnometry Measured from: lips ETT to lips (cm): 22 Number of attempts at approach: 1 [facility] Anesthesia Noteon 03-21-2025 Anesthesia Note Normal [facility] Anesthesia Note Normal [facility] BASIC METABOLIC PANELon 03-12 Anion gap [Moles/Vol] 11 mmol/L Normal 3-13 [facility] Comment on above: Performed By: #### L AB15, LAB61 ####Rn Building: BROOKE RINCON ([id number])[facility] ([facility])[address] [place] [address] [place] Calcium [Mass/Vol] 9.0 mg/dL Normal 8.8-10.0 [facility] Comment on above: Performed By: #### L AB15, LAB61 ####Rn Building: BROOKE RINCON ([id number])[facility])[address] [place] [address] Chloride [Moles/Vol] 107 mmol/L Normal 98-107 [facility] Comment on above: Performed By: #### L AB15, LAB61 ####Rn Building: BROOKE RINCON ([id number])[facility])[address] [place] [address] CO2 [Moles/Vol] 18 mmol/L Low 23-31 [facility] Comment on above: Performed By: #### L AB15, LAB61 ####Rn Building: BROOKE RINCON ([id number])[facility])[address] [place] [address] Creatinine [Mass/Vol] 1.40 mg/dL High 0.57-1.11 [facility] Comment on above: Performed By: #### L 15, LAB61 ####Rn Building: BROOKE RINCON ([id number])[facility])[address] [place] [address] [place] GLOMERULAR FILTRATION RATE ML/MIN/1.73 SQ M.PREDICTED 36.9 mL/min/1.73m*2 Low >60.0 [facility] Comment on above: Result Comment: Calc ulation based on the Chronic Kidney Disease Epidemiology Collaboration (CKD-EPI) equation refit without adjustment for race Performed By: #### L DARIO, LAB61 ####Rn Building: BROOKE RINCON ([id number])[facility] ([facility])[address] [place] [address] Glucose [Mass/Vol] 201 mg/dL High 82-115 [facility] Comment on above: Performed By: #### L AB15, LAB61 ####Rn Building: BROOKE RINCON ([id number])[facility])[address] [place] [address] [place] Potassium [Moles/Vol] 4.5 mmol/L Normal 3.5-5.1 [facility] Comment on above: Result Comment: [facility] potassium values may be up to 0.5 mmol/L lower than serum values. Performed By: #### L AB15, LAB61 ####Rn Building: BROOKE RINCON ([id number])[facility])[address] [place] [address] Sodium [Moles/Vol] 136 mmol/L Normal 136-145 [facility] Comment on above: Performed By: #### L AB15, LAB61 ####Rn Building: BROOKE RINCON ([id number])[address] Urea nitrogen [Mass/Vol] 38 mg/dL High 9-23 [facility] SHS Comment on above: Performed By: #### L AB15, LAB61 ####Rn Building: BROOKE RINCON ([id number])[facility])[address] [place] [address] BLOOD CULTUREon 03-21-2025 Bacteria identified Cx Nom (Bld) Normal [facility] Comment on above: Performed By: #### L AB462 ####Rn Building: BROOKE RINCON ([id number])[facility])[address] [place] [address] Bacteria identified Cx Nom (Bld) Normal [facility] Comment on above: Performed By: #### L AB462 ####Rn Building: BROOKE RINCON ([id number])[address] BLOOD GAS, VENOUSon 03-21-20 25 AMOUNT OF OXYGEN 0 Normal [facility] Comment on above: Result Comment: CARLTON Geiger COMMENTS:Assessment of oxygenation is best done with an arterial blood gas determination. Reference ranges for pO2, bicarbonate, and base excess are for mixed venous blood. Specimens drawn from a peripheral vein will often have higher values. Performed By: #### L AB79 ####Rn Building: BROOKE RINCON ([id number])[address] Base excess Calc (BldV) [Moles/Vol] -1.9000 mmol/L Normal -3.0-3.0 [facility] Comment on above: Performed By: #### L AB79 ####Rn Building: BROOKE [id number])[facility] [place] [address] [place] CO2 [Moles/Vol] 25.5 mmol/L Normal 24.0-28.0 [facility] SHS Comment on above: Performed By: #### L AB79 ####Rn Building: BROOKE RINCON ([id number])[facility])[address] [place] [address] HCO3 (Bld) [Moles/Vol] 24.1 mmol/L Normal 23.0-27.0 [facility] SHS Comment on above: Performed By: #### L AB79 ####Rn Building: BROOKE RINCON ([id number])[facility])[address] [place] [address] Hemoglobin (Bld) [Mass/Vol] 8.2 g/dL Normal Screen only [facility] SHS Comment on above: Performed By: #### L AB79 ####Rn Building: BROOKE RINCON ([id number])[facility])[address] [place] [address] OXYGEN (MM HG) IN VENOUS BLOOD 29.2 mm Hg Normal [facility] SHS Comment on above: Performed By: #### L AB79 ####Rn Building: BROOKE RINCON ([id number])[facility])[address] [place] [address] OXYGEN SATURATION (%) IN VENOUS BLOOD 43.1 % Normal [facility] SHS Comment on above: Performed By: #### L AB79 ####Rn Building: BROOKE RINCON ([id number])[facility])[address] [place] [address] [place] PCO2, QASIM 46.7 mm Hg Normal 40.0-55.0 [facility] SHS Comment on above: Performed By: #### L AB79 ####Rn Building: BROOKE RINCON ([id number])[facility])[address] [place] [address] [place] PH VENOUS 7.330 Normal 7.330-7.43 0 [facility] SHS Comment on above: Performed By: #### L AB79 ####Rn Building: BROOKE RINCON ([id number])[facility] ([facility])[address] [place] [address] SOURCE OF OXYGEN None (Room Air) Normal [facility] SHS Comment on above: Performed By: #### L AB79 ####Rn Building: BROOKE RINCON ([id number])[facility] ([facility])[address] [place] [address] Basic metabolic 1998 panelon 03-21-2025 Anion gap [Moles/Vol] 11 mmol/L 3 - 13 mmol/L [facility] Calcium [Mass/Vol] 9 mg/dL 8.8 - 10. 0 mg/dL [facility] Chloride [Moles/Vol] 107 mmol/L 98 - 10 7 mmol/L [facility] CO2 [Moles/Vol] 18 mmol/L Low 23 - 31 mmol/L [facility] Creatinine [Mass/Vol] 1.4 mg/dL High 0.57 - 1.11 mg/dL [facility] GFR/1.73 sq M.predicted (S/P/Bld) [Vol rate/Area] 36.9 mL/min Low - PINF [facility] Comment on above: Calculation based on the Chronic Kidney Disease Epidemiology Collaboration (CKD-EPI) equation refit without adjustment for race Glucose [Mass/Vol] 201 mg/dL High 82 - 115 mg/dL [facility] Interpretation and review of laboratory results Abnormal [facility] Potassium [Moles/Vol] 4.5 mmol/L 3.5 - 5.1 mmol/L [facility] Comment on above: Plasma potassium ashley ues may be up to 0.5 mmol/L lower than serum values. Sodium [Moles/Vol] 136 mmol/L 136 - 145 mmol/L [facility] Urea nitrogen [Mass/Vol] 38 mg/dL High 9 - 23 mg/dL [facility] CBC (HEMOGRAM)on 03-21-2025 Erythrocyte distribution width (RBC) [Ratio] 15.7 % High 11.5-15.0 [facility] SHS Comment on above: Performed By: #### L AB294 ####Rn Building: BROOKE RINCON ([id number])[facility])[address] [place] [address] Hematocrit (Bld) [Volume fraction] 25.2 % Low 35.0-47.0 [facility] SHS Comment on above: Performed By: #### L AB294 ####Rn Building: BROOKE RINCON ([id number])[facility])[address] [place] [address] Hemoglobin (Bld) [Mass/Vol] 8.0 g/dL Low 11.7-16.0 [facility] Comment on above: Performed By: #### L AB294 ####Rn Building: BROOKE RINCON ([id number])[facility] ([facility])[address] [place] [address] MCH (RBC) [Entitic mass] 29.6 pg Normal 26.0-34.0 [facility] Comment on above: Performed By: #### L AB294 ####Rn Building: BROOKE RINCON ([id number])[facility])[address] [place] [address] MCHC 31.7 % Normal 30.5-36.0 [facility] SHS Comment on above: Performed By: #### L AB294 ####Rn Building: BROOKE RINCON ([id number])[facility] ([facility])[address] [place] [address] MCV (RBC) [Entitic vol] 93.3 fL Normal 77.0-99.0 [facility] SHS Comment on above: Performed By: #### L AB294 ####Rn Building: BROOKE RINCON ([id number])[facility])[address] [place] [address] Platelet mean volume (Bld) [Entitic vol] 10.9 fL Normal 9.0-12.7 [facility] SHS Comment on above: Performed By: #### L AB294 ####Rn Building: BROOKE RINCON ([id number])[facility])[address] [place] [address] Platelets (Bld) [#/Vol] 158 10*3/uL Normal 140-440 [facility] Comment on above: Performed By: #### L AB294 ####Rn Building: BROOKE RINCON ([id number])[address] RBC (Bld) [#/Vol] 2.70 10*6/uL Low 3.80-5.20 [facility] Comment on above: Performed By: #### L AB294 ####Rn Building: BROOKE RINCON ([id number])[facility])[address] [place] [address] WBC (Bld) [#/Vol] 10.0 10*3/uL Normal 3.6-10.7 [facility] Comment on above: Performed By: #### L AB294 ####Rn Building: BROOKE RINCON ([id number])[address] CBC W Auto Differential pane l (Bld)Ordered By: Elias Blanchard on 03-21-2025 Erythrocyte distribution width (RBC) [Ratio] 15 % 11.5 - 15.0 % [facility] Hematocrit (Bld) [Volume fraction] 29.3 % Low 35.0 - 47.0 % [facility] Hemoglobin (Bld) [Mass/Vol] 9.4 g/dL Low 11.7 - 16.0 g/dL [facility] Interpretation and review of laboratory results Abnormal [facility] MCH (RBC) [Entitic mass] 30.5 pg 26.0 - 34.0 pg [facility] MCHC (RBC) [Mass/Vol] 32.1 % 30.5 - 36.0 % [facility] MCV (RBC) [Entitic vol] 95.1 fL 77.0 - 99.0 fL [facility] Platelet mean volume (Bld) [Entitic vol] 11.4 fL 9.0 - 12.7 fL [facility] Platelets (Bld) [#/Vol] 289 10*3/uL 140 - 440 10*3/uL [facility] RBC (Bld) [#/Vol] 3.08 10*6/uL Low 3.80 - 5.20 10*6/uL [facility] WBC (Bld) [#/Vol] 12.8 10*3/uL High 3.6 - 10.7 10*3/uL [facility] CBC WITH AUTO DIFFERENTIALon 03-21-2025 Erythrocyte distribution width (RBC) [Ratio] 15.0 % Normal 11.5-15.0 [facility] SHS Comment on above: Performed By: #### L [id number], [id number] ####Rn Building: BROOKE RINCON ([id number])[address] Hematocrit (Bld) [Volume fraction] 29.3 % Low 35.0-47.0 [facility] SHS Comment on above: Performed By: #### L [id number], [id number] ####Rn Building: BROOKE RINCON ([id number])[address] Hemoglobin (Bld) [Mass/Vol] 9.4 g/dL Low 11.7-16.0 [facility] SHS Comment on above: Performed By: #### L [id number], [id number] ####Rn Building: BROOKE RINCON ([id number])[address] MCH (RBC) [Entitic mass] 30.5 pg Normal 26.0-34.0 [facility] SHS Comment on above: Performed By: #### L [id number], [id number] ####Rn Building: BROOKE RINCON ([id number])[address] MCHC 32.1 % Normal 30.5-36.0 [facility] SHS Comment on above: Performed By: #### L [id number], [id number] ####Rn Building: BROOKE RINCON ([id number])[address] MCV (RBC) [Entitic vol] 95.1 fL Normal 77.0-99.0 [facility] SHS Comment on above: Performed By: #### L [id number], [id number] ####Rn Building: BROOKE RINCON ([id number])[facility])[address] [place] [address] Platelet mean volume (Bld) [Entitic vol] 11.4 fL Normal 9.0-12.7 [facility] Comment on above: Performed By: #### L [id number], [id number] ####Rn Building: BROOKE RINCON ([id number])[facility])[address] [place] [address] Platelets (Bld) [#/Vol] 289 10*3/uL Normal 140-440 [facility] Comment on above: Performed By: #### L [id number], [id number] ####Rn Building: BROOKE RINCON ([id number])[facility])[address] [place] [address] RBC (Bld) [#/Vol] 3.08 10*6/uL Low 3.80-5.20 [facility]S Comment on above: Performed By: #### L [id number], [id number] ####Rn Building: BROOKE RINCON ([id number])[facility])[address] [place] [address] WBC (Bld) [#/Vol] 12.8 10*3/uL High 3.6-10.7 [facility] Comment on above: Performed By: #### L [id number], [id number] ####Rn Building: BROOKE RINCON ([id number])[facility])[address] [place] [address] CBC panel Auto (Bld)Ordered By: Bushra Ruano on 03-21-2025 Erythrocyte distribution width (RBC) [Ratio] 15.7 % High 11.5 - 15.0 % [facility] Hematocrit (Bld) [Volume fraction] 25.2 % Low 35.0 - 47.0 % [facility] Hemoglobin (Bld) [Mass/Vol] 8 g/dL Low 11.7 - 16.0 g/dL [facility] Interpretation and review of laboratory results Abnormal [facility] MCH (RBC) [Entitic mass] 29.6 pg 26.0 - 34.0 pg [facility] MCHC (RBC) [Mass/Vol] 31.7 % 30.5 - 36.0 % [facility] MCV (RBC) [Entitic vol] 93.3 fL 77.0 - 99.0 fL [facility] Platelet mean volume (Bld) [Entitic vol] 10.9 fL 9.0 - 12.7 fL [facility] Platelets (Bld) [#/Vol] 158 10*3/uL 140 - 440 10*3/uL [facility] RBC (Bld) [#/Vol] 2.7 10*6/uL Low 3.80 - 5.20 10*6/uL [facility] WBC (Bld) [#/Vol] 10 10*3/uL 3.6 - 10.7 10*3/uL [facility] CORTISOLon 03-21-2025 CORTISOL 17.4 ug/dL Normal 3.7-19.4 [facility] Comment on above: Result Comment: CARLTON Geiger COMMENTS:Before 10am 4.5-22.7 ug/dLAfter 5pm 1.7-14.1 ug/dL Performed By: #### L AB15, LAB61 ####Rn Building: BROOKE RINCON ([id number])[facility])[address] [place] [address] CULTURE ANAEROBICon 03-21-20 25 CULTURE ANAEROBIC Normal [facility] Comment on above: Performed By: #### L [id number] ####Rn Building: BROOKE RINCON ([id number])[facility] ([facility])[address] [place] [address] CULTURE, AEROBIC BACTERIA WI TH GRAM STAINon 03-21-2025 CULTURE, AEROBIC BACTERIA WITH GRAM STAIN Normal [facility] Comment on above: Performed By: #### L [id number] ####Rn Building: BROOKE RINCON ([id number])[facility])[address] [place] [address] [place] Consulton 03-21-2025 Consult Normal [facility] ECG 12-LEADon 03-21-2025 ECG 12-LEAD IMPRESSION: Atrial fibrillation Nonspecific T abnormalities, lateral leads Compared to ECG 03/20/2025 15:08:18 No significant change is noted Electronically Signed On 03-21-2025 19:09:08 EDT by Marcelle Soler [facility] HAPTOGLOBINon 03-21-2025 HAPTOGLOBIN 131 mg/dL Normal 50-270 [facility] Comment on above: Performed By: #### L AB89, [id number], LAB20, [id number] ####Rn Building: BROOKE RINCON ([id number])[facility] ([facility])[address] [place] [address] HEMOGLOBIN AND HEMATOCRIT, B LOODon 03-21-2025 Hematocrit (Bld) [Volume fraction] 21.4 % Low 35.0-47.0 [facility] Comment on above: Performed By: #### L [id number] ####Rn Building: BROOKE RINCON ([id number])[facility] ([facility])[address] [place] [address] Hemoglobin (Bld) [Mass/Vol] 6.8 g/dL Critically low 11.7-16.0 [facility] Comment on above: Performed By: #### L [id number] ####Rn Building: BROOKE RINCON ([id number])[facility])[address] [place] [address] HEPATIC FUNCTION PANELon Albumin [Mass/Vol] 3.7 g/dL Normal 3.4-4.8 [facility] Comment on above: Performed By: #### L AB89, [id number], LAB20, [id number] ####Rn Building: BROOKE RINCON ([id number])[facility] ([facility])[address] [place] [address] ALP [Catalytic activity/Vol] 37 U/L Low 40-150 [facility] Comment on above: Performed By: #### L AB89, [id number], LAB20, [id number] ####Rn Building: BROOKE RINCON ([id number])[facility])[address] [place] [address] ALT [Catalytic activity/Vol] 12 U/L Normal <30 [facility] Comment on above: Performed By: #### L AB89, [id number], LAB20, [id number] ####Rn Building: BROOKE RINCON ([id number])[facility])[address] [place] [address] AST [Catalytic activity/Vol] 22 U/L Normal <34 [facility] Comment on above: Performed By: #### L AB89, [id number], LAB20, [id number] ####Rn Building: BROOKE RINCON ([id number])[facility])[address] [place] [address] Bilirubin [Mass/Vol] 1.2 mg/dL High <1.2 [facility] Comment on above: Performed By: #### L AB89, [id number], LAB20, [id number] ####Rn Building: BROOKE RINCON ([id number])[address] Bilirubin.indirect [Mass/Vol] 0.6 mg/dL High <0.5 [facility] Comment on above: Performed By: #### L AB89, [id number], LAB20, [id number] ####Rn Building: BROOKE RINCON ([id number])[facility])[address] [place] [address] Protein [Mass/Vol] 6.4 g/dL Normal 6.4-8.3 [facility] Comment on above: Result Comment: Seru m protein values are higher than plasma values. Samples from recumbent persons are lower by up to 0.5 g/dL as compared to ambulatory persons. After 60 years values are lower by up to 0.2 g/dL. Performed By: #### L AB89, [id number], LAB20, [id number] ####Rn Building: BOROKE RINCON ([id number])[facility])[address] [place] [address] Hemoglobin (Bld) [Mass/Vol]O rdered By: Philly Nuñez on 03-21-2025 Hematocrit (Bld) [Volume fraction] 21.4 % Low 35.0 - 47.0 % [facility] Interpretation and review of laboratory results Abnormal [facility] Hepatic function 2000 panelo n 03-21-2025 Albumin [Mass/Vol] 3.7 g/dL 3.4 - 4.8 g/dL [facility] ALP [Catalytic activity/Vol] 37 U/L Low 40 - 150 U/L [facility] ALT [Catalytic activity/Vol] 12 U/L NINF - 30 U/L [facility] AST [Catalytic activity/Vol] 22 U/L NINF - 34 U/L [facility] Bilirubin [Mass/Vol] 1.2 mg/dL High NINF - 1.2 mg/dL [facility] Bilirubin.conjugated [Mass/Vol] 0.6 mg/dL High NINF - 0.5 mg/dL [facility] Interpretation and review of laboratory results Abnormal [facility] Protein [Mass/Vol] 6.4 g/dL 6.4 - 8.3 g/dL [facility] Comment on above: Serum protein values are higher than plasma values. Samples from recumbent persons are lower by up to 0.5 g/dL as compared to ambulatory persons. After 60 years values are lower by up to 0.2 g/dL. [facility] LACTIC ACID WITH REFLEXon Lactate [Moles/Vol] 3.0 mmol/L High 0.5-2.2 [facility] Comment on above: Performed By: #### L [id number] ####Rn Building: BROOKE RINCON ([id number])[address] Lactate [Moles/Vol] 2.8 mmol/L High 0.5-2.2 [facility] Comment on above: Performed By: #### L [id number] ####Rn Building: BROOKE RINCON ([id number])[address] Laboratory - Chemistry and C hemistry - challengeon 03-21-2025 Lactate [Moles/Vol] 3 mmol/L High 0.5 - 2. 2 mmol/L [facility] Procalcitonin [Mass/Vol] 0.23 ng/mL High NINF - 0.07 ng/mL [facility] Glucose [Mass/Vol] 284 mg/dL High 70 - 100 mg/dL [facility] Lactate [Moles/Vol] 2.8 mmol/L High 0.5 - 2. 2 mmol/L [facility] Magnesium [Mass/Vol] 1.7 mg/dL 1.6 - 2 .6 mg/dL [facility] Base excess Calc (BldV) [Moles/Vol] -1.9000 mmol/L -3.0 - 3.0 mmol/L [facility] CO2 (BldV) [Partial pressure] 46.7 mm[Hg] [facility] CO2 [Moles/Vol] 25.5 mmol/L 24.0 - 28.0 mmol/L [facility] HCO3 (Bld) [Moles/Vol] 24.1 mmol/L 23.0 - 27.0 mmol/L [facility] Oxygen (BldV) [Partial pressure] 29.2 mm[Hg] mm Hg [facility] pH (BldV) 7.33 [pH] 7.330 - 7.430 [facility] Glucose [Mass/Vol] 299 mg/dL High 70 - 100 mg/dL [facility] Cortisol [Mass/Vol] 17.4 ug/dL 3.7 - 19 .4 ug/dL [facility] Glucose [Mass/Vol] 201 mg/dL High 70 - 100 mg/dL [facility] Laboratory - Hematology and Cell countson 03-21-2025 Haptoglobin [Mass/Vol] 131 mg/dL 50 - 270 mg/dL [facility] Hemoglobin (Bld) [Mass/Vol] 8.2 g/dL 7.0 g/dl [facility] Lymphocytes (Bld) [#/Vol] 1.5 10*3/uL 1.0 - 4.3 10*3/uL [facility] Lymphocytes/100 WBC (Bld) 12 % Low 15 - 45 % [facility] Monocytes (Bld) [#/Vol] 0.4 10*3/uL 0.0 - 0.9 10*3/uL [facility] Monocytes/100 WBC (Bld) 3 % Low 5 - 13 % [facility] Neutrophils (Bld) [#/Vol] 10.9 10*3/uL High 1.8 - 7.5 10*3/uL [facility] RBC morphology finding Nom (Bld) Normal [facility] Segmented neutrophils/100 WBC (Bld) 85 % High 38 - 82 % [facility] Laboratory - Hematology and Cell countsOrdered By: Philly Nuñez on 03-21-2025 Hemoglobin (Bld) [Mass/Vol] 6.8 g/dL Critically low 11.7 - 16.0 g/dL [facility] MAGNESIUMon 03-21-2025 Magnesium [Mass/Vol] 1.7 mg/dL Normal 1.6-2.6 [facility] Comment on above: Result Comment: CARLTON Geiger COMMENTS:Higher values can be expected in females during menses. Performed By: #### L [id number], [id number], [id number], [id number] ####Rn Building: BROOKE RINCON ([id number])[facility] ([facility])[address] [place] [address] MANUAL DIFFERENTIAL (CELLAVI CHELA)on 03-21-2025 BAND NEUTROPHILS TOTAL PER COUNTED LEUKOCYTES BY MANUAL COUNT [facility] Comment on above: Performed By: #### L [id number], [id number] ####Rn Building: BROOKE RINCON ([id number])[facility] ([facility])[address] [place] [address] BASOPHILS TOTAL PER COUNTED LEUKOCYTES BY MANUAL COUNT [facility] Comment on above: Performed By: #### L [id number], [id number] ####Rn Building: BROOKE RINCON ([phone])[facility])[address] [place] [address] BLASTS TOTAL PER COUNTED LEUKOCYTES BY MANUAL COUNT [facility] Comment on above: Performed By: #### L [id number], [id number] ####Rn Building: BROOKE RINCON ([id number])[facility])[address] [place] [address] EOSINOPHILS TOTAL PER COUNTED LEUKOCYTES BY MANUAL COUNT [facility] Comment on above: Performed By: #### L [id number], [id number] ####Rn Building: BROOKE RINCON ([id number])[facility] ([facility])[address] [place] [address] [place] LYMPHOCYTES (10*3/UL) IN BLOOD-CELLAVISION 1.5 10*3/uL Normal 1.0-4.3 [facility] Comment on above: Performed By: #### L [id number], [id number] ####Rn Building: BROOKE RINCON ([id number])[facility] ([facility])[address] [place] [address] [place] LYMPHOCYTES TOTAL PER COUNTED LEUKOCYTES BY MANUAL COUNT 12 Normal [facility] Comment on above: Performed By: #### L [id number], [id number] ####Rn Building: BROOKE RINCON ([id number])[facility])[address] [place] [address] [place] LYMPHOCYTES/100 LEUKOCYTES IN BLOOD-CELLAVISION 12 % Low 15-45 [facility] Comment on above: Performed By: #### L [id number], [id number] ####Rn Building: BROOKE RINCON ([id number])[facility])[address] [place] [address] [place] METAMYELOCYTES TOTAL PER COUNTED LEUKOCYTES BY MANUAL COUNT Normal [facility] Comment on above: Performed By: #### L [id number], [id number] ####Rn Building: BROOKE RINCON ([id number])[facility] ([facility])[address] [place] [address] MONOCYTES (10*3/UL) IN BLOOD-CELLAVISION 0.4 10*3/uL Normal 0.0-0.9 [facility] Comment on above: Performed By: #### L [id number], [id number] ####Rn Building: BROOKE RINCON ([id number])[facility] ([facility])[address] [place] [address] [place] MONOCYTES TOTAL PER COUNTED LEUKOCYTES BY MANUAL COUNT 3 Normal [facility] Comment on above: Performed By: #### L [id number], [id number] ####Rn Building: BROOKE RINCON ([id number])[facility])[address] [place] [address] [place] MONOCYTES/100 LEUKOCYTES IN BLOOD-HENRIETTA 3 % Low 5-13 [facility] Comment on above: Performed By: #### L [id number], [id number] ####Rn Building: BROOKE RINCON ([id number])[facility] ([facility])[address] [place] [address] [place] MYELOCYTES COUNTED BY MANUAL COUNT Normal [facility] Comment on above: Performed By: #### L [id number], [id number] ####Rn Building: BROOKE RINCON ([id number])[facility] ([facility])[address] [place] [address] NEUTROPHILS TOTAL PER COUNTED LEUKOCYTES BY MANUAL COUNT 84 Normal [facility] Comment on above: Performed By: #### L [id number], [id number] ####Rn Building: BROOKE RINCON ([id number])[facility] ([facility])[address] [place] [address] PROMYELOCYTES TOTAL PER COUNTED LEUKOCYTES BY MANUAL COUNT [facility] Comment on above: Performed By: #### L [id number], [id number] ####Rn Building: BROOKE RINCON ([id number])[facility] ([facility])[address] [place] [address] RBC MORPHOLOGY IN BLOOD Normal Normal [facility] Comment on above: Performed By: #### L [id number], [id number] ####Rn Building: BROOKE RINCON ([id number])[facility] ([facility])[address] [place] [address] [place] SEGMENTED NEUTROPHILS (10*3/UL) IN BLOOD-CELLAVISION 10.9 10*3/uL High 1.8-7.5 [facility] Comment on above: Performed By: #### L [id number], [id number] ####Rn Building: BROOKE RINCON ([id number])[facility] ([facility])[address] [place] [address] [place] SEGMENTED NEUTROPHILS/100 LEUKOCYTES-CE 85 % High 38-82 [facility] Comment on above: Performed By: #### L [id number], [id number] ####Rn Building: BROOKE RINCON ([id number])[facility] ([facility])[address] [place] [address] UNCLASSIFIED CELLS TOTAL PER COUNTED LEUKOCYTES BY MANUAL COUNT Normal [facility] Comment on above: Performed By: #### L [id number], [id number] ####Rn Building: BROOKE RINCON ([id number])[facility])[address] [place] [address] VARIANT LYMPHOCYTES TOTAL PER COUNTED LEUKOCYTES BY MANUAL COUNT Normal [facility] Comment on above: Performed By: #### L [id number], [id number] ####Rn Building: BROOKE RINCON ([id number])[facility] ([facility])[address] [place] [address] Magnesium [Mass/Vol]on 03-21 Interpretation and review of laboratory results Normal [facility] Higher values can be expected in females during menses. [facility] No Panel Informationon 03-21 Interpretation and review of laboratory results Normal [facility] Interpretation and review of laboratory results Abnormal [facility] Interpretation and review of laboratory results Abnormal [facility] Performed by: [facility], [address] [place] [address] CLIA ID: [id number] [facility] Atrial fibrillation Nonspecific T abnormalities, lateral leads Compared to ECG 03/20/2025 15:08:18 No significant change is noted Electronically Signed On 03-21-2025 19:09:08 EDT by Marcelle Dc CV Marcelle Arango MD - 03/21/2025 IMPRESSION: Atrial fibrillation Nonspecific T abnormalities, lateral leads Compared to ECG 03/20/2025 15:08:18 No significant change is noted Electronically Signed On 03-21-2025 19:09:08 EDT [facility] Interpretation and review of laboratory results Abnormal [facility] Amount Of Oxygen 0 [facility] Source Of Oxygen None (Room Air) [facility] Assessment of oxygen ation is best done with an arterial blood gas determination. Reference ranges for pO2, bicarbonate, and base excess are for mixed venous blood. Specimens drawn from a peripheral vein will often have higher values. [facility] Interpretation and review of laboratory results Abnormal [facility] Performed by: [facility], [address] [place] [address] CLIA ID: [id number] [facility] Interpretation and review of laboratory results Normal [facility] Before 10am 4.5-22.7 ug/dL After 5pm 1.7-14.1 ug/dL [facility] Blood Expiration Date [id number] [facility] Crossmatch interpretation COMP [facility] Dispense Status Transfused [facility] [employer] Product Blood Type 6200 [facility] [employer] PRODUCT CODE [id number] [facility] ABO A [facility] Number [id number] [facility] RH Positive [facility] Unit Volume 300 mL [facility] There is no interpre tation needed for this exam. IMAGING Interpretation and review of laboratory results Abnormal [facility] Performed by: [facility], [address] [place] [address] CLIA ID: [id number] [facility] Atypical Lymphocytes Manual [facility] Bands Manual [facility] Basophils Manual [facility] Blasts Manual [facility] Eosinophils Manual [facility] Interpretation and review of laboratory results Abnormal [facility] Lymphocytes Manual 12 [facility] Metamyelocytes Manual [facility] Monocytes Manual 3 [facility] Myelocytes Manual [facility] Neutrophils Manual 84 [facility] Promyelocytes Manual [facility] Unclassified Cells, Manual [facility] 2h Troponin HS (Serial 2nd Troponin) 12 ng/L NINF - 14 ng/L [facility] Comment on above: Rising or falling tr oponin delta below 2 ng/L as compared to baseline value suggests that acute cardiac injury is unlikely. Interpretation and review of laboratory results Normal [facility] No Panel InformationOrdered By: Marcelle Dc on 03-21-2025 P [place] 0 degrees [facility] [employer] Work Phone: [place] Interval 0 ms [facility] [employer] Work Phone: QRS [place] -14 degrees [facility] [employer] Work Phone: QRSD Interval 86 ms [facility] [employer] Work Phone: QT Interval 311 ms [employer] Work Phone: QTC Interval 462 ms [facility] [employer] Work Phone: T Wave [place] 0 degrees [facility] [employer] Work Phone: [facility] [employer] Work Phone: Nursing Noteon 03-21-2025 Nursing Note Attempted x 2 nurses to obtain two sets of blood cultures but was unsuccessful. Notified rapid to help obtain blood culures x 2. Culture of the R plantar diabetic ulcer cultured. Normal [facility] Nursing Note BP has improved with blood product. Medicine team at bedside to assess pt, states she looks better. Updated son Hi. Called report and in for transport. Normal [facility] Nursing Note Unit of PRBC hanging , pt alert and talking. Normal [facility] Nursing Note Updated amber antonio r phone on status in pacu Normal [facility] Nursing Note Order received for b lood, unit released to blood bank. Pt awake and alert at this time, carrying conversation. Normal [facility] Nursing Note Communicated critica l lab Hgb 6.[address] Jackson, Dr Canales and Dr Collado, awaiting further orders. Normal [facility] Nursing Note Notified Dr Manuel sunshine BP, order for h+h received, attempting to place second IV and obtain bloodwork Normal [facility] Nursing Note Notified Dr Manuel sunshine BP, order received for 25mg IM Ephedrine. Normal [facility] Nursing Note Second bag of albumi n hanging per order Normal [facility] Nursing Note Notified Dr Manuel sunshine hypotension, orders for albumin received Normal [facility] Nursing Note Post-op x-rays done, pt tolerated well, resting with eyes closed, awakens to voice. Normal [facility] Op Noteon 03-21-2025 Op Note Normal [facility] PROCALCITONIN TESTon 025 PROCALCITONIN 0.23 ng/mL High <0.07 [facility] Comment on above: Result Comment: JULIOE R COMMENTS:PCT <0.50 = Low risk of severe sepsis and/or septic shock.PCT >2.00 = High risk of severe sepsis and/or septic shock. Performed By: #### L [id number], [id number], [id number], [id number] ####Rn Building: BROOKE RINCON ([id number])[facility] ([facility])[address] [place] [address] Procalcitonin [Mass/Vol]on 0 03-21-2025 Interpretation and review of laboratory results Abnormal [facility] PCT <0.50 = Low risk of severe sepsis and/or septic shock. PCT >2.00 = High risk of severe sepsis and/or septic shock. [facility] Progress Noteon 03-21-2025 Progress Note Normal [facility] Progress Note Normal [facility] Progress Note Normal [facility] Vital signsOrdered By: Marcelle Dc on 03-21-2025 Heart rate 132 /min bpm [facility] Work Phone: Vital signson 03-21-2025 Oxygen saturation in Venous blood 43.1 % [facility] XR FEMUR 2+ VW LEFTon 2024 XR FEMUR 2+ VW LEFT Normal [facility] XR FOOT 1-2 VIEWS RIGHTon XR FOOT 1-2 VIEWS RIGHT Normal [facility] XR Femur - left 2 Viewson Patient Name: HANNA NELSON : 1940 Exam Date/Time: 03/21/2025 09:38 Procedure: XR FEMUR 2+ VW LEFT Ordering Provider: PAULINO DENI Reason For Exam: post op HISTORY: postop 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 Degenerative joint disease left knee, osteopenia, scattered arterial vascular calcification Report Dictated on Electronically Signed By: Linwood Simon MD Electronically Signed Date/Time: 03/21/2025 9:53 AM EDT [facility] [employer] Radiology Study observation (narrative) [facility] XR Femur - left 2 ViewsOrder ed By: Linwood Simon on 03-21-2025 [facility] Work Phone: XR Foot - right 2 Viewson FINDINGS AND IMPRESS ION: The bones are osteopenic. Pes planus noted. 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 Loss of joint space with marginal osteophytes tarsometatarsal joints. There is edema throughout the soft tissues of the foot. Many of the distal phalanges are not well evaluated due to positioning. Report Dictated on Electronically Signed By: Priscila Miramontes MD Electronically Signed Date/Time: 03/21/2025 10:48 PM EDT [facility] Patient Name: HANNA NELSON : 1940 Exam Date/Time: 03/21/2025 19:44 Procedure: XR FOOT 1-2 VIEWS RIGHT Ordering Provider: PAULINO DENI Reason For Exam: diabetic ulcer L foot INDICATION: Diabetic ulcer of the left foot. VIEWS: Right foot-2 views COMPARISON: MRI right foot 01/26/2025 [facility] Priscila Miramontes MD - 03/21/2025 Patient Name: HANNA NELSON : 1940 Exam Date/Time: 03/21/2025 19:44 Procedure: XR FOOT 1-2 VIEWS RIGHT Ordering Provider: PAULINO DENI Reason For Exam: diabetic ulcer L foot INDICATION: Diabetic ulcer of the left foot. VIEWS: Right foot-2 views COMPARISON: MRI right foot 01/26/2025 IMPRESSION: FINDINGS AND IMPRESSION: The bones are osteopenic. Pes planus noted. 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 Loss of joint space with marginal osteophytes tarsometatarsal joints. There is edema throughout the soft tissues of the foot. Many of the distal phalanges are not well evaluated due to positioning. Report Dictated on Electronically Signed By: Priscila Miramontes MD Electronically Signed Date/Time: 03/21/2025 10:48 PM EDT [facility] Radiology Study observation (narrative) [facility] [employer] XR Foot - right 2 ViewsOrder ed By: Priscila Miramontes on 03-21-2025 [facility] [employer] Work Phone: BASIC METABOLIC PANELon 08-0 Anion gap [Moles/Vol] 9 mmol/L Normal 3-13 [facility] Comment on above: Performed By: #### L AB15 ####Rn Building: BROOKE RINCON ([id number])[address] Calcium [Mass/Vol] 8.9 mg/dL Normal 8.8-10.0 [facility] Comment on above: Performed By: #### L AB15 ####Rn Building: BROOKE [id number])[facility] ([facility])[address] [place] [address] Chloride [Moles/Vol] 106 mmol/L Normal 98-107 [facility] Comment on above: Performed By: #### L AB15 ####Rn Building: BROOKE [id number])[facility])[address] [place] [address] CO2 [Moles/Vol] 20 mmol/L Low 23-31 [facility] Comment on above: Performed By: #### L AB15 ####Rn Building: BROOKE [id number])[facility])[address] [place] [address] [place] Creatinine [Mass/Vol] 1.32 mg/dL High 0.57-1.11 [facility] Comment on above: Performed By: #### L AB15 ####Rn Building: BROOKE RINCON ([id number])[facility])[address] [place] [address] GLOMERULAR FILTRATION RATE ML/MIN/1.73 SQ M.PREDICTED 39.6 mL/min/1.73m*2 Low >60.0 [facility] Comment on above: Result Comment: Calc ulation based on the Chronic Kidney Disease Epidemiology Collaboration (CKD-EPI) equation refit without adjustment for race Performed By: #### L AB15 ####Rn Building: BROOKE RINCON ([id number])[facility])[address] [place] [address] Glucose [Mass/Vol] 216 mg/dL High 82-115 [facility] Comment on above: Performed By: #### L AB15 ####Rn Building: BROOKE RINCON ([id number])[facility])[address] [place] [address] Potassium [Moles/Vol] 4.5 mmol/L Normal 3.5-5.1 [facility] Comment on above: Result Comment: [facility] potassium values may be up to 0.5 mmol/L lower than serum values. Performed By: #### L AB15 ####Rn Building: BROOKE RINCON ([id number])[facility] ([facility])[address] [place] [address] Sodium [Moles/Vol] 135 mmol/L Low 136-145 [facility] Comment on above: Performed By: #### L AB15 ####Rn Building: BROOKE RINCON ([id number])[facility])[address] [place] [address] Urea nitrogen [Mass/Vol] 41 mg/dL High 9-23 [facility] Comment on above: Performed By: #### L AB15 ####Rn Building: BROOKE [id number])[facility])[address] [place] [address] Anion gap [Moles/Vol] 15 mmol/L High 3-13 [facility] Comment on above: Performed By: #### L AB62, LAB15 ####Rn Building: BROOKE RINCON ([id number])[facility] ([facility])[address] [place] [address] Calcium [Mass/Vol] 9.4 mg/dL Normal 8.8-10.0 [facility] Comment on above: Performed By: #### L AB62, LAB15 ####Rn Building: BROOKE RINCON ([id number])[facility] [employer] ([facility])[address] [place] [address] Chloride [Moles/Vol] 109 mmol/L High 98-107 [facility] Comment on above: Performed By: #### Jaz DELGADILLO, LAB15 ####Rn Building: BROOKE RINCON ([id number])[facility] [employer] ([facility])[address] [place] [address] [place] CO2 [Moles/Vol] 16 mmol/L Low 23-31 [facility] Comment on above: Performed By: #### L AB62, LAB15 ####Rn Building: BROOKE RINCON ([id number])[facility] [employer] ([facility])[address] [place] [address] [place] Creatinine [Mass/Vol] 1.70 mg/dL High 0.57-1.11 [facility] Comment on above: Performed By: #### L AB62, LAB15 ####Rn Building: BROOKE RINCON ([id number])[facility] [employer] ([facility])[address] [place] [address] [place] GLOMERULAR FILTRATION RATE ML/MIN/1.73 SQ M.PREDICTED 29.3 mL/min/1.73m*2 Low >60.0 [facility] Comment on above: Result Comment: Calc ulation based on the Chronic Kidney Disease Epidemiology Collaboration (CKD-EPI) equation refit without adjustment for race Performed By: #### L AB62, LAB15 ####Rn Building: BROOKE RINCON ([id number])[facility] RODOLFORANDY SOLORIOTMAN ([facility])[address] [place] [address] [place] Glucose [Mass/Vol] 350 mg/dL High 82-115 [facility] Comment on above: Performed By: #### L AB62, LAB15 ####Rn Building: BROOKE RINCON ([id number])[facility] RODOLFO OSMINTMAN ([facility])[address] Potassium [Moles/Vol] 5.0 mmol/L Normal 3.5-5.1 [facility] Comment on above: Result Comment: [facility] potassium values may be up to 0.5 mmol/L lower than serum values. Performed By: #### L AB62, LAB15 ####Rn Building: BROOKE RINCON ([id number])[facility]ITALRODOLFORAND[facility] SOL[facility]IOT[facility] ([facility])[address] [place] [address] Sodium [Moles/Vol] 140 mmol/L Normal 136-145 [facility] Comment on above: Performed By: #### L AB62, LAB15 ####Rn Building: BROOKE RINCON ([id number])[facility]PITALRODOLFORANDY SOLORIOAN ([facility])[address] Urea nitrogen [Mass/Vol] 43 mg/dL High 9-23 [facility] Comment on above: Performed By: #### L AB62, LAB15 ####Rn Building: BROOKE RINCON ([id number])[facility] OSMINAN ([facility])[address] BLOOD GAS, VENOUSon 03-20-20 25 AMOUNT OF OXYGEN 93 Normal [facility] Comment on above: Result Comment: CARLTON Geiger COMMENTS:Assessment of oxygenation is best done with an arterial blood gas determination. Reference ranges for pO2, bicarbonate, and base excess are for mixed venous blood. Specimens drawn from a peripheral vein will often have higher values. Performed By: #### L AB79 ####Rn Building: BROOKE [id number])[facility] ([facility])[address] [place] [address] Base excess Calc (BldV) [Moles/Vol] -2.2000 mmol/L Normal -3.0-3.0 [facility] Comment on above: Performed By: #### L AB79 ####Rn Building: BROOKE RINCON ([id number])[facility] ([facility])[address] [place] [address] CO2 [Moles/Vol] 24.1 mmol/L Normal 24.0-28.0 [facility] Comment on above: Performed By: #### L AB79 ####Rn Building: BROOKE RINCON ([id number])[facility] ([facility])[address] [place] [address] HCO3 (Bld) [Moles/Vol] 22.9 mmol/L Low 23.0-27.0 [facility] Comment on above: Performed By: #### L AB79 ####Rn Building: BROOKE RINCON ([id number])[facility] ([facility])[address] [place] [address] Hemoglobin (Bld) [Mass/Vol] 9.8 g/dL Normal Screen only [facility] Comment on above: Performed By: #### L AB79 ####Rn Building: BROOKE RINCON ([id number])[facility])[address] [place] [address] OXYGEN (MM HG) IN VENOUS BLOOD 32.7 mm Hg Normal [facility] Comment on above: Performed By: #### L AB79 ####Rn Building: BROOKE RINCON ([id number])[facility])[address] [place] [address] OXYGEN SATURATION (%) IN VENOUS BLOOD 50.4 % Normal [facility] Comment on above: Performed By: #### L AB79 ####Rn Building: BROOKE RINCON ([id number])[facility] ([facility])[address] [place] [address] [place] PCO2, QASIM 40.3 mm Hg Normal 40.0-55.0 [facility] Comment on above: Performed By: #### L AB79 ####Rn Building: BROOKE RINCON ([id number])[facility] ([facility])[address] [place] [address] PH VENOUS 7.372 Normal 7.330-7.43 0 [facility] Comment on above: Performed By: #### L AB79 ####Rn Building: BROOKE RINCON ([id number])[facility] ([facility])[address] [place] [address] SOURCE OF OXYGEN None (Room Air) Normal [facility] Comment on above: Performed By: #### L AB79 ####Rn Building: BROOKE RINCON ([id number])[facility])[address] [place] [address] BLOOD TYPE AND SCREEN GELon 03-20-2025 ABO GROUPING A Normal [facility] Comment on above: Performed By: #### L [id number] ####Rn Building: BROOKE RINCON ([id number])[facility] ([facility])[address] [place] [address] RH TYPE IN BLOOD Positive Normal [facility] Comment on above: Performed By: #### L AB276 ####Rn Building: BROOKE RINCON ([id number])[facility] ([facility])[address] [place] [address] Basic metabolic 1998 panelon 03-20-2025 Anion gap [Moles/Vol] 9 mmol/L 3 - 13 mmol/L [facility] Calcium [Mass/Vol] 8.9 mg/dL 8.8 - 10. 0 mg/dL [facility] Chloride [Moles/Vol] 106 mmol/L 98 - 10 7 mmol/L [facility] CO2 [Moles/Vol] 20 mmol/L Low 23 - 31 mmol/L [facility] Creatinine [Mass/Vol] 1.32 mg/dL High 0.57 - 1.11 mg/dL [facility] GFR/1.73 sq M.predicted (S/P/Bld) [Vol rate/Area] 39.6 mL/min Low - PINF [facility] Comment on above: Calculation based on the Chronic Kidney Disease Epidemiology Collaboration (CKD-EPI) equation refit without adjustment for race Glucose [Mass/Vol] 216 mg/dL High 82 - 115 mg/dL [facility] Interpretation and review of laboratory results Abnormal [facility] Potassium [Moles/Vol] 4.5 mmol/L 3.5 - 5.1 mmol/L [facility] Comment on above: Plasma potassium ashley ues may be up to 0.5 mmol/L lower than serum values. Sodium [Moles/Vol] 135 mmol/L Low 136 - 145 mmol/L [facility] Urea nitrogen [Mass/Vol] 41 mg/dL High 9 - 23 mg/dL [facility] Anion gap [Moles/Vol] 15 mmol/L High 3 - 13 mmol/L [facility] Calcium [Mass/Vol] 9.4 mg/dL 8.8 - 10. 0 mg/dL [facility] Chloride [Moles/Vol] 109 mmol/L High 98 - 10 7 mmol/L [facility] CO2 [Moles/Vol] 16 mmol/L Low 23 - 31 mmol/L [facility] Creatinine [Mass/Vol] 1.7 mg/dL High 0.57 - 1.11 mg/dL [facility] GFR/1.73 sq M.predicted (S/P/Bld) [Vol rate/Area] 29.3 mL/min Low - [facility] Comment on above: Calculation based on the Chronic Kidney Disease Epidemiology Collaboration (CKD-EPI) equation refit without adjustment for race Glucose [Mass/Vol] 350 mg/dL High 82 - 115 mg/dL [facility] Potassium [Moles/Vol] 5 mmol/L 3.5 - 5.1 mmol/L [facility] Comment on above: Plasma potassium ashley ues may be up to 0.5 mmol/L lower than serum values. Sodium [Moles/Vol] 140 mmol/L 136 - 145 mmol/L [facility] Urea nitrogen [Mass/Vol] 43 mg/dL High 9 - 23 mg/dL [facility] Blood type and Crossmatch abby coombs (Bld)on 03-20-2025 ABO group Nom (Bld) A [facility] Blood group antibody screen GEL Ql Negative [facility] D Ag Ql (RBC) Positive [facility] CBC W Auto Differential pane l (Bld)Ordered By: Mone García on 03-20-2025 Basophils (Bld) [#/Vol] 0 10*3/uL 0.0 - 0.2 10*3/uL [facility] Basophils/100 WBC (Bld) 0.1 % 0.0 - 2.0 % [facility] Eosinophils (Bld) [#/Vol] 0 10*3/uL 0.0 - 0.5 10*3/uL [facility] Eosinophils/100 WBC (Bld) 0 % 0.0 - 6.0 % [facility] Erythrocyte distribution width (RBC) [Ratio] 14.8 % 11.5 - 15.0 % [facility] Hematocrit (Bld) [Volume fraction] 31.3 % Low 35.0 - 47.0 % [facility] Hemoglobin (Bld) [Mass/Vol] 10.3 g/dL Low 11.7 - 16.0 g/dL [facility] Immature granulocytes (Bld) [#/Vol] 0.1 10*3/uL High NINF - 0.1 10*3/uL [facility] Immature granulocytes/100 WBC (Bld) 0.5 % 0.0 - 2.0 % [facility] Interpretation and review of laboratory results Abnormal [facility] Lymphocytes (Bld) [#/Vol] 0.9 10*3/uL Low 1.0 - 4.3 10*3/uL [facility] Lymphocytes/100 WBC (Bld) 6.2 % Low 15.0 - 45.0 % [facility] MCH (RBC) [Entitic mass] 30.2 pg 26.0 - 34.0 pg [facility] MCHC (RBC) [Mass/Vol] 32.9 % 30.5 - 36.0 % [facility] MCV (RBC) [Entitic vol] 91.8 fL 77.0 - 99.0 fL [facility] Monocytes (Bld) [#/Vol] 1.5 10*3/uL High 0.0 - 0.9 10*3/uL [facility] Monocytes/100 WBC (Bld) 10.7 % 5.0 - 13.0 % [facility] Neutrophils (Bld) [#/Vol] 11.7 10*3/uL High 1.8 - 7.5 10*3/uL [facility] Neutrophils/100 WBC (Bld) 82.5 % High 38.0 - 82.0 % [facility] Nucleated RBC/100 WBC (Bld) [Ratio] 0 % [facility] Platelet mean volume (Bld) [Entitic vol] 10.9 fL 9.0 - 12.7 fL [facility] Comment on above: MPV is a calculated measurement using platelet volume ratio Platelets (Bld) [#/Vol] 279 10*3/uL 140 - 440 10*3/uL [facility] RBC (Bld) [#/Vol] 3.41 10*6/uL Low 3.80 - 5.20 10*6/uL [facility] WBC (Bld) [#/Vol] 14.1 10*3/uL High 3.6 - 10.7 10*3/uL [facility] CBC WITH AUTO DIFFERENTIALon 03-20-2025 Basophils (Bld) [#/Vol] 0.0 10*3/uL Normal 0.0-0.2 [facility] Comment on above: Performed By: #### L [id number] ####Rn Building: BROOKE RINCON ([id number][facility]OLFO [facility]AN (SWRLAB)[address] [place] [address] [place] Basophils/100 WBC (Bld) 0.1 % Normal 0.0-2.0 [facility] Comment on above: Performed By: #### L [id number] ####Rn Building: BROOKE RINCON ([id number])[facility] (SWRLAB)[address] [place] [address] [place] Eosinophils (Bld) [#/Vol] 0.0 10*3/uL Normal 0.0-0.5 [facility] Comment on above: Performed By: #### L [id number] ####Rn Building: BROOKE RINCON ([id number])[facility] (SWRL[facility])[address] [place] [address] [place] Eosinophils/100 WBC (Bld) 0.0 % Normal 0.0-6.0 [facility] Comment on above: Performed By: #### L [id number] ####Rn Building: BROOKE RINCON ([id number])RODRIGO REYNOLDS [facility]ITTMAN (SWRLAB)[address] [place] [address] Erythrocyte distribution width (RBC) [Ratio] 14.8 % Normal 11.5-15.0 [facility] Comment on above: Performed By: #### L [id number] ####Rn Building: BROOKE RINCON ([id number])[facility]ITAL[facility] REYNOLDS RITTMAN (SWRLAB)[address] [place] [address] Hematocrit (Bld) [Volume fraction] 31.3 % Low 35.0-47.0 [facility] Comment on above: Performed By: #### L [id number] ####Rn Building: BROOKE RINCON ([id number])[facility] REYNOLDS RITTMAN (SWRLAB)[address] [place] [address] Hemoglobin (Bld) [Mass/Vol] 10.3 g/dL Low 11.7-16.0 [facility] Comment on above: Performed By: #### L [id number] ####Rn Building: BROOKE RINCON ([id number])[facility]ITAL[facility]YNOL[employer] (SWRLAB)[address] [place] [address] IMMATURE GRANS % 0.5 % Normal 0.0-2.0 [facility] Comment on above: Performed By: #### L [id number] ####Rn Building: BROOKE RINCON ([id number])[facility] REYNOLDS [facility] (SWRLAB)[address] [place] [address] IMMATURE GRANS ABSOLUTE 0.1 10*3/uL High <0.1 [facility] Comment on above: Performed By: #### L [id number] ####Rn Building: BROOKE RINCON ([id number])RODRIGO [employer]YNOLDS [facility]ITTMAN (SWRLAB)[address] [place] [address] Lymphocytes (Bld) [#/Vol] 0.9 10*3/uL Low 1.0-4.3 [facility] Comment on above: Performed By: #### L [id number] ####Rn Building: BROOKE RINCON ([id number])[facility]ITAL[facility]YNOL[facility] (SWRL[facility])[address] [place] [address] [place] Lymphocytes/100 WBC (Bld) 6.2 % Low 15.0-45.0 [facility] Comment on above: Performed By: #### L [id number] ####Rn Building: BROOKE RINCON ([id number])[facility] REYNOL[facility]ITTM[facility] (SWRL[facility])[address] [place] [address] MCH (RBC) [Entitic mass] 30.2 pg Normal 26.0-34.0 [facility] Comment on above: Performed By: #### L [id number] ####Rn Building: BROOKE RINCON ([id number])[facility]YNOL[facility] (SWRL[facility])[address] [place] [address] MCHC 32.9 % Normal 30.5-36.0 [facility] Comment on above: Performed By: #### L [id number] ####Rn Building: BROOKE RINCON ([id number])[facility]ITAL[facility]YNOL[employer] [facility]ITTM[facility] (SWRL[facility])[address] [place] [address] MCV (RBC) [Entitic vol] 91.8 fL Normal 77.0-99.0 [facility] Comment on above: Performed By: #### L [id number] ####Rn Building: BROOKE RINCON ([id number])[facility]OL[facility] (SWRL[facility])[address] [place] [address] [place] Monocytes (Bld) [#/Vol] 1.5 10*3/uL High 0.0-0.9 [facility] Comment on above: Performed By: #### L [id number] ####Rn Building: BROOKE RINCON ([id number])[facility] REYNOL[facility]ITTMAN (SWRL[facility])[address] [place] [address] [place] Monocytes/100 WBC (Bld) 10.7 % Normal 5.0-13.0 [facility] Comment on above: Performed By: #### L [id number] ####Rn Building: BROOKE RINCON ([id number])[facility]ITAL[facility] REYNOL[facility]TM[facility] (SWRL[facility])[address] [place] [address] NEUTROPHILS ABSOLUTE 11.7 10*3/uL High 1.8-7.5 [facility] Comment on above: Performed By: #### L [id number] ####Rn Building: BROOKE RINCON ([id number])[facility]OL[facility] (SWRL[facility])[address] [place] [address] Neutrophils/100 WBC (Bld) 82.5 % High 38.0-82.0 [facility] Comment on above: Performed By: #### L [id number] ####Rn Building: BROOKE RINCON ([id number])[facility]ITALJul[facility] (SWRL[facility])[address] [place] [address] NRBC 0.0 /100 WBCs Normal 0.0-2.0 [facility] Comment on above: Performed By: #### L [id number] ####Rn Building: BROOKE RINCON ([id number])[facility]OL[facility] (SWRL[facility])[address] [place] [address] Platelet mean volume (Bld) [Entitic vol] 10.9 fL Normal 9.0-12.7 [facility] Comment on above: Result Comment: MPV is a calculated measurement using platelet volume ratio Performed By: #### L [id number] ####Rn Building: BROOKE RINCON ([id number])[facility] REYNOL[facility] (SWRLAB)[address] [place] [address] Platelets (Bld) [#/Vol] 279 10*3/uL Normal 140-440 [facility] Comment on above: Performed By: #### L [id number] ####Rn Building: BROOKE RINCON ([id number])[facility]Jul[facility] (SWRL[facility])[address] [place] [address] RBC (Bld) [#/Vol] 3.41 10*6/uL Low 3.80-5.20 [facility] Comment on above: Performed By: #### L [id number] ####Rn Building: BROOKE RINCON ([id number])[facility]Jul[facility] (SWRL[facility])[address] [place] [address] WBC (Bld) [#/Vol] 14.1 10*3/uL High 3.6-10.7 [facility] Comment on above: Performed By: #### L [id number] ####Rn Building: BROOKE RINCON ([id number])[facility]ITALJul[facility] (SWRL[facility])[address] [place] [address] CKon 03-20-2025 CK [Catalytic activity/Vol] 253 U/L High 30-185 [facility] Comment on above: Performed By: #### L [id number] ####Rn Building: BROOKE RINCON ([id number])[facility]ITALJul[facility] RE[facility]OL[facility]IT[facility] (SWRL[facility])[address] [place] [address] COMPLETE URINALYSIS WITH REF MAI TO CULTUREon 03-20-2025 BACTERIA (#/HPF) IN URINE Few Abnormal Negative [facility] Comment on above: Performed By: #### L [id number] ####Rn Building: BROOKE RINCON ([id number])[facility]ITALJul[facility] REYNOLDS RITTMAN (SWRLAB)[address] [place] [address] BILIRUBIN, TOTAL PRESENCE IN URINE Negative Normal Negative [facility] Comment on above: Performed By: #### L [id number] ####Rn Building: BROOKE RINCON ([id number])[facility]ITALJul[facility] REYNOLDS RITTMAN (SWRL[facility])[address] [place] [address] Clarity (U) Clear Normal Clear [facility] Comment on above: Performed By: #### L [id number] ####Rn Building: BROOKE RINCON ([id number])[facility]ITALJuliana MEADRODOLFO RITTMAN (SWRLAB)[address] [place] [address] [place] Color (U) Yellow Normal Lt. Yellow [facility] Comment on above: Performed By: #### L [id number] ####Rn Building: BROOKE RINCON ([id number])[facility]ITALJul[facility] REYNOLDS RITTMAN (SWRLAB)[address] [place] [address] [place] GLUCOSE (MG/DL) IN URINE >1,000 Abnormal Normal (<70) [facility] Comment on above: Performed By: #### L [id number] ####Rn Building: BROOKE RINCON ([id number])[facility]ITALJul[facility] MEADRODOLFO RITTMAN (SWRLAB)[address] [place] [address] HEMOGLOBIN PRESENCE IN URINE Negative Normal Negative [facility] Comment on above: Performed By: #### L [id number] ####Rn Building: BROOKE RINCON ([id number])[facility]ITALJul[facility] REYNOLDS RITTMAN (SWRLAB)[address] [place] [address] [place] Ketones Ql (U) Trace Abnormal Negative [facility] Comment on above: Performed By: #### L [id number] ####Rn Building: BROOKE RINCON ([id number])[facility]Jul[facility] REYNOLDS RITTMAN (SWRLAB)[address] [place] [address] [place] LEUKOCYTE ESTERASE PRESENCE IN URINE BY TEST STRIP Negative Normal Negative [facility] Comment on above: Performed By: #### L [id number] ####Rn Building: BROOKE RINCON ([id number])[facility]Jul[facility] REYNOLDS RITTMAN (SWRLAB)[address] [place] [address] [place] NITRITE PRESENCE IN URINE Negative Normal Negative [facility] Comment on above: Performed By: #### L [id number] ####Rn Building: BROOKE RINCON ([id number])[facility] REYNOLDS RITTMAN (SWRLAB)[address] [place] [address] [place] NON-SQUAMOUS EPITHELIAL (#/HPF) IN URINE 0-2 Abnormal Negative [facility] Comment on above: Performed By: #### L [id number] ####Rn Building: BROOKE RINCON ([id number])[facility]ITALJul[facility] REYNOLDS RITTMAN (SWRLAB)[address] [place] [address] pH (U) 5.0 [pH] Normal 5.0-8.0 [facility] Comment on above: Performed By: #### L [id number] ####Rn Building: BROOKE RINCON ([id number])[facility]Jul[facility] REYNOLDS RITTMAN (SWRLAB)[address] [place] [address] Protein (U) [Mass/Vol] 20 mg/dL Abnormal Negative [facility] Comment on above: Performed By: #### L [id number] ####Rn Building: BROOKE RINCON ([id number])[facility] REYNOLDS RITTMAN (SWRLAB)[address] [place] [address] [place] RBC (#/HPF) IN URINE SEDIMENT 0-2 Normal 0-2 [facility] Comment on above: Performed By: #### L [id number] ####Rn Building: BROOKE RINCON ([id number])[facility] REYNOLDS RITTMAN (SWRLAB)[address] [place] [address] Specific gravity (U) [Rel density] 1.019 Normal 1.005-1.03 0 [facility] Comment on above: Result Comment: CARLTON R COMMENTS:A specimen with <=10 WBC is not consistent with inflammation. This specimen will not reflex to a urine culture. Performed By: #### L [id number] ####Rn Building: BROOKE RINCON ([id number])[facility]Jul[facility] REYNOLDS RITTMAN (SWRLAB)[address] [place] [address] [place] SQUAMOUS EPITHELIAL CELLS (#/HPF) IN URINE SEDIMENT 6-10 Abnormal 3-5 [facility] Comment on above: Performed By: #### L [id number] ####Rn Building: BROOKE RINCON ([id number])[facility] REYNOLDS RITTMAN (SWRLAB)[address] [place] [address] UROBILINOGEN (MG/DL) IN URINE 2 mg/dL Abnormal Normal (0-1) [facility] Comment on above: Performed By: #### L [id number] ####Rn Building: BROOKE RINCON ([id number])[facility]Jul[facility] REYNOLDS RITTMAN (SWRLAB)[address] [place] [address] VOLUME OF URINE 8-12 mL Normal [facility] Comment on above: Performed By: #### L [id number] ####Rn Building: BROOKE RINCON ([id number])[facility]Jul[facility] REYNOLDS RITTMAN (SWRLAB)[address] [place] [address] WBC (LEUKOCYTE) (#/HPF) IN URINE SEDIMENT 3-5 Normal 0-5 [facility] Comment on above: Performed By: #### L [id number] ####Rn Building: BROOKE RINCON ([id number])[facility]ITALJul[facility] REYNOLDS RITTMAN (SWRLAB)[address] [place] [address] Consulton 03-20-2025 Consult [facility] ECG 12-LEADon 03-20-2025 ECG 12-LEAD IMPRESSION: Atrial fibrillation w rapid ventricular response, V-rate 135 Borderline QT prolongation No acute ischemic changes Electronically Signed On 03-20-2025 15:17:51 EDT by Jennifer Perry [facility] ECG 12-LEAD IMPRESSION: ATRIAL FIBRILLATION WITH RAPID VENTRICULAR RESPONSE rate 140 Prolonged QT interval No acute ischemic changes Electronically Signed On 03-20-2025 13:22:28 EDT by Jennifer Perry [facility] ED Nursing Noteon 03-20-2025 ED Nursing Note Report to Rayna PIERSON [address] ED Nursing Note Report to ambulance crew for transfer to [facility]. Chart to them. Pt taking cell phone. Daughter taking purse and clothing home with her. Normal [facility] ED Nursing Note Dr. Orlando ziegler for pain relief left hip. Pt tolerated well. Normal [facility] ED Nursing Note Pt able to void on f racture moyer. Urine sent to lab. Normal [facility] ED Nursing Note Normal [facility] ED Provider Noteon ED Provider Note Normal [facility] HEMOGLOBIN A1Con 03-20-2025 Glucose [Mass/Vol] 148 mg/dL Normal [facility] Comment on above: Result Comment: CARLTON Geiger COMMENTS:If not done within the last 3 [id number] values of 5.7-6.4 percent indicate an increased risk for developing diabetes mellitus. HbA1c values greater than or equal to 6.5 percent are diagnostic of diabetes mellitus. For diagnosis of diabetes in individuals without unequivocal hyperglycemia, results should be confirmed by repeat testing. Performed By: #### L [id number] ####Rn Building: BROOKE RINCON ([id number])[facility] [place] [address] HEMOGLOBIN A1C 6.8 %HbA1C High <5.7 [facility] Comment on above: Result Comment: Norm al less than 5.7%Prediabetes 5.7% to 6.4%Diabetes 6.5% or higher--HgbA1C levels may not be accurate in patients who have renal disease, received recent blood transfusions, are anemic, or who have dyshemoglobinemia. Performed By: #### L [id number] ####Rn Building: BROOKE RINCON ([id number])[facility] [employer] (RLAB)[address] [place] [address] HIGH SENSITIVITY TROPONIN, S ERIAL BASELINEon 03-20-2025 TROPONIN HS SERIAL BASELINE 13 ng/L Normal <=14 [facility] Comment on above: Result Comment: In i ndividuals presenting with symptoms > 2h, a baseline troponin <= 5 ng/L suggests acutecardiac injury is unlikely and further serial testing is generally not indicated. Performed By: #### L [id number] ####Rn Building: BROOKE RINCON ([id number])[address] HIGH SENSITIVITY TROPONIN, S ERIAL, SECOND TESTon 03-20-2025 2H TROPONIN HS (SERIAL 2ND TROPONIN) 12 ng/L Normal <=14 [facility] Comment on above: Result Comment: Risi ng or falling troponin delta below 2 ng/L as compared to baseline value suggests thatacute cardiac injury is unlikely. Performed By: #### L [id number] ####Rn Building: BROOKE RINCON ([id number])[address] Laboratory - Chemistry and C hemistry - challengeOrdered By: Manisha Baum on 03-20-2025 Base excess Calc (BldV) [Moles/Vol] -2.2000 mmol/L -3.0 - 3.0 mmol/L [facility] CO2 (BldV) [Partial pressure] 40.3 mm[Hg] [facility] CO2 [Moles/Vol] 24.1 mmol/L 24.0 - 28.0 mmol/L [facility] HCO3 (Bld) [Moles/Vol] 22.9 mmol/L Low 23.0 - 27.0 mmol/L [facility] Oxygen (BldV) [Partial pressure] 32.7 mm[Hg] mm Hg [facility] pH (BldV) 7.372 [pH] 7.330 - 7.430 [facility] Laboratory - Chemistry and C hemistry - challengeon 03-20-2025 Glucose [Mass/Vol] 221 mg/dL High 70 - 100 mg/dL [facility] Glucose [Mass/Vol] 233 mg/dL High 70 - 100 mg/dL [facility] Average glucose Estimated from glycated hemoglobin (Bld) [Mass/Vol] 148 mg/dL [facility] CK [Catalytic activity/Vol] 253 U/L High 30 - 185 U/L [facility] Laboratory - Coagulationon 0 03-20-2025 PT Coag (Bld) [Time] 11.6 s 9.0 - 1 2.0 s [facility] Laboratory - Hematology and Cell countsOrdered By: Manisha Baum on 03-20-2025 Hemoglobin (Bld) [Mass/Vol] 9.8 g/dL 7.0 g/dl [facility] Laboratory - Hematology and Cell countson 03-20-2025 HbA1c (Bld) [Mass fraction] 6.8 % High NINF [facility] Comment on above: Normal less than 5.7 % Prediabetes 5.7% to 6.4% Diabetes 6.5% or higher --HgbA1C levels may not be accurate in patients who have renal disease, received recent blood transfusions, are anemic, or who have dyshemoglobinemia. No Panel Informationon 03-20 Interpretation and review of laboratory results Normal [facility] [employer] Troponin HS Serial Baseline 13 ng/L NINF - 14 ng/L [facility] [employer] Comment on above: In individuals prese nting with symptoms > 2h, a baseline troponin <= 5 ng/L suggests acute cardiac injury is unlikely and further serial testing is generally not indicated. [employer] Interpretation and review of laboratory results Abnormal [facility] [employer] Performed by: [address] [address] CLIA ID: [id number] [facility] [employer] Interpretation and review of laboratory results Abnormal [facility] [employer] Performed by: [address] [address] CLIA ID: [id number] [facility] [employer] Interpretation and review of laboratory results Abnormal [facility] [employer] HbA1c values of 5.7- 6.4 percent indicate an increased risk for developing diabetes mellitus. HbA1c values greater than or equal to 6.5 percent are diagnostic of diabetes mellitus. For diagnosis of diabetes in individuals without unequivocal hyperglycemia, results should be confirmed by repeat testing. [employer] P [place] 0 degrees [facility] [place] Interval 0 ms [facility] [employer] QRS [place] -3 degrees [facility] QRSD Interval 84 ms [facility] QT Interval 316 ms [facility] [employer] QTC Interval 475 ms [facility] [employer] T Wave [place] 35 degrees [facility] Atrial fibrillation w rapid ventricular response, V-rate 135 Borderline QT prolongation No acute ischemic changes Electronically Signed On 03-20-2025 15:17:51 EDT by Jennifer Verma DO - 03/20/2025 IMPRESSION: Atrial fibrillation w rapid ventricular response, V-rate 135 Borderline QT prolongation No acute ischemic changes Electronically Signed On 03-20-2025 15:17:51 EDT by Jennifer Perry [facility] [employer] Health P [place] [address] [facility] [address] [facility] [place] Interval 0 ms [facility] QRS [place] 10 degrees [facility] QRSD Interval 93 ms [facility] QT Interval 328 ms [facility] QTC Interval 502 ms [facility] [employer] T Wave [place] 72 degrees [facility] ATRIAL FIBRILLATION WITH RAPID VENTRICULAR RESPONSE rate 140 Prolonged QT interval No acute ischemic changes Electronically Signed On 03-20-2025 13:22:28 EDT by Jennifer Verma DO - 03/20/2025 IMPRESSION: ATRIAL FIBRILLATION WITH RAPID VENTRICULAR RESPONSE rate 140 Prolonged QT interval No acute ischemic changes Electronically Signed On 03-20-2025 13:22:28 EDT by Jennifer Perry [facility] Radiology Study observation (narrative) [facility] Interpretation and review of laboratory results Abnormal [facility] Bobo Mays 03/20/2025 2:47 PM [facility] SPECIFIC POCUS ORDER Performed by: Jennifer Perry DO Authorized by: Jennifer Perry DO [facility] Bboo Mays 03/20/2025 2:47 PM Nerve Block Performed by: Jennifer Perry DO Authorized by: Jennifer Perry DO [place] protocol: Patient identity confirmed: Verbally with patient Indications: Indications: Pain relief Location: Body area: Lower extremity Lower extremity nerve: Fascia iliaca Laterality: Left Pre-procedure details: Skin preparation: Povidone-iodine Skin anesthesia: Skin anesthesia method: Local infiltration Procedure details: Block needle gauge: 22 G Guidance: ultrasound Anesthetic injected: Bupivacaine 0.5% w/o epi and lidocaine 1% w/o epi (50/50, 20 cc total) Post-procedure details: Procedure completion: Tolerated well, no immediate complications [facility] No Panel InformationOrdered By: Manisha Baum on 03-20-2025 Amount Of Oxygen 93 [facility] Interpretation and review of laboratory results Abnormal [facility] Source Of Oxygen None (Room Air) [facility] Assessment of oxygen ation is best done with an arterial blood gas determination. Reference ranges for pO2, bicarbonate, and base excess are for mixed venous blood. Specimens drawn from a peripheral vein will often have higher values. [facility] Nursing Noteon 03-20-2025 Nursing Note Pts son present sammie ng admission, pts son stated he will notify pts PCP of admission to [facility]. Normal [facility] PROTHROMBIN TIMEon INR Coag (PPP) [Relative time] 1.1 {INR} Normal 0.9-1.1 [facility] Comment on above: Result Comment: Channing mmended Anticoagulant Therapy: SEE BELOW----- INR of 2.0 - 3.0 : - Prophylaxis of Venous Thrombosis (high-risk surgery) - Treatment of Venous Thrombosis - Treatment of Pulmonary Embolism (Includes tissue heart valves, Acute Myocardial Infarction to prevent systemic embolism, Valvular Heart Disease, and Atrial Fibrillation)----- INR of 2.5 - 3.5 : - Mechanical Prosthetic Valves (high risk) - If oral anticoagulant therapy is used to prevent Myocardial Infarction Performed By: #### Jaz [id number] ####Rn Building: BROOKE RINCON ([id number])[facility] ([facility])[address] [place] [address] PT Coag (PPP) [Time] 11.6 s Normal 9.0-12.0 [facility] Comment on above: Performed By: #### Jaz [id number] ####Rn Building: BROOKE RINCON ([id number])[facility] ([facility])[address] [place] [address] PT Coag (Bld) [Time]on 03-20 INR Coag (PPP) [Relative time] 1.1 {INR} 0.9 - 1.1 [facility] Comment on above: Recommended Anticoag ulant Therapy: SEE BELOW ----- INR of 2.0 - 3.0 : - Prophylaxis of Venous Thrombosis (high-risk surgery) - Treatment of Venous Thrombosis - Treatment of Pulmonary Embolism (Includes tissue heart valves, Acute Myocardial Infarction to prevent systemic embolism, Valvular Heart Disease, and Atrial Fibrillation) ----- INR of 2.5 - 3.5 : - Mechanical Prosthetic Valves (high risk) - If oral anticoagulant therapy is used to prevent Myocardial Infarction Interpretation and review of laboratory results Normal [facility] Urinalysis complete panel (U )on 03-20-2025 Bacteria LM.HPF (Urine sed) [#/Area] Few Abnormal Negative /HPF [facility] Bilirubin Ql (U) Negative Negative mg/dL [facility] Clarity (U) Clear Clear [facility] Color (U) Yellow Lt. Yellow [facility] Epithelial cells.squamous LM.HPF (Urine sed) [#/Area] 6-10 Abnormal [facility] Glucose Ql (U) >1,000 Abnormal Normal (<70) mg/dL [facility] Hemoglobin Ql (U) Negative Negative mg/dL [facility] Interpretation and review of laboratory results Abnormal [facility] Ketones (U) [Mass/Vol] Trace Abnormal Negat eddie mg/dL [facility] Leukocyte esterase Test strip Ql (U) Negative Negative Baljit/uL [facility] Nitrite Ql (U) Negative Negative [facility] Non-Squamous Epithalial Cells, Urine 0-2 Abnormal Negative /HPF [facility] pH (U) 5.0 [pH] 5.0 - 8.0 pH [facility] Protein (U) [Mass/Vol] 20 mg/dL Abnormal Negative [facility] RBC LM.HPF (Urine sed) [#/Area] 0-2 [facility] Specific gravity (U) [Rel density] 1.019 1.005 - 1.030 [facility] Urobilinogen (U) [Mass/Vol] 2 mg/dL Abnormal Normal (0-1) [facility] Volume, Urine 8-12 mL [facility] WBC LM.HPF (Urine sed) [#/Area] 3-5 [facility] A specimen with <=10 WBC is not consistent with inflammation. This specimen will not reflex to a urine culture. [facility] Vital signsOrdered By: Jatinder Baum on 03-20-2025 Oxygen saturation in Venous blood 50.4 % [facility] Vital signson 03-20-2025 Heart rate 135 /min bpm [facility] Heart rate 140 /min bpm [facility] XR Chest Single viewon 03-20 No acute abnormality . Report Dictated on Electronically Signed By: Josue Fields MD Electronically Signed Date/Time: 03/20/2025 1:23 PM [facility] RADIOLOGY SYSTEM Patient Name: HNANA NELSON : 1940 Exam Date/Time: 03/20/2025 13:00 Procedure: XR CHEST 1 VIEW Ordering Provider: PERRY MICHAEL Reason For Exam: pre op CHEST RADIOGRAPH CLINICAL INDICATION: pre op. Chest pain, Shortness of breath. TECHNIQUE: Single frontal view of the chest COMPARISON: Chest radiograph 03/12/2025 FINDINGS: Mediastinum: The heart and mediastinum are normal. Lungs: The lungs are clear. Pleura: There is no evidence for pleural effusion. There is no pneumothorax Bones and soft tissues: No acute fracture or dislocation. Mild degenerative changes of the visualized thoracic spine. [facility] Josue Fields MD - 03/20/2025 Patient Name: HANNA NELSON : 1940 Exam Date/Time: 03/20/2025 13:00 Procedure: XR CHEST 1 VIEW Ordering Provider: PERRY MICHAEL Reason For Exam: pre op CHEST RADIOGRAPH CLINICAL INDICATION: pre op. Chest pain, Shortness of breath. TECHNIQUE: Single frontal view of the chest COMPARISON: Chest radiograph 03/12/2025 FINDINGS: Mediastinum: The heart and mediastinum are normal. Lungs: The lungs are clear. Pleura: There is no evidence for pleural effusion. There is no pneumothorax Bones and soft tissues: No acute fracture or dislocation. Mild degenerative changes of the visualized thoracic spine. IMPRESSION: No acute abnormality. Report Dictated on Electronically Signed By: Josue Fields MD Electronically Signed Date/Time: 03/20/2025 1:23 PM EDT [facility] XR FEMUR 2+ VW LEFTon 2024 XR FEMUR 2+ VW LEFT Normal [facility] XR Femur - left 2 Viewson 1. No acute osseous abnormality. 2. 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 Report Dictated on Electronically Signed By: Rajesh Cristina MD Electronically Signed Date/Time: 03/20/2025 7:40 PM EDT [facility] Patient Name: HANNA NELSON : 1940 Exam Date/Time: 03/20/2025 18:58 Procedure: XR FEMUR 2+ VW LEFT Ordering Provider: HOUSTON JOSHUA Reason For Exam: pre-op femur fx LEFT FEMUR 2 VIEWS CLINICAL INDICATION: pre-op femur fx TECHNIQUE: 2 views of the left femur, excluding the hip joint. COMPARISON: None. FINDINGS: No acute fracture or dislocation. Moderate degenerative change in all 3 joint compartments of the knee. Soft tissues grossly unremarkable. [facility] RADIOLOGY SYSTEM Rajesh Cristina MD - 03/20/2025 Patient Name: HANNA NELSON : 1940 Exam Date/Time: 03/20/2025 18:58 Procedure: XR FEMUR 2+ VW LEFT Ordering Provider: HOUSTON JOSHUA Reason For Exam: pre-op femur fx LEFT FEMUR 2 VIEWS CLINICAL INDICATION: pre-op femur fx TECHNIQUE: 2 views of the left femur, excluding the hip joint. COMPARISON: None. FINDINGS: No acute fracture or dislocation. Moderate degenerative change in all 3 joint compartments of the knee. Soft tissues grossly unremarkable. IMPRESSION: 1. No acute osseous abnormality. 2. 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 Report Dictated on Electronically Signed By: Rajesh Cristina MD Electronically Signed Date/Time: 03/20/2025 7:40 PM EDT [facility] XR Femur - left 2 ViewsOrder ed By: Rajesh Cristina on 03-20-2025 [facility] Work Phone: XR Hip - left 3 Viewson FINDINGS/IMPRESSION: There is an acute moderately comminuted subtrochanteric fracture of the left proximal femur with possible slight intertrochanteric component, with shortening of the distal fracture fragment. The left femoral acetabular joint is maintained. The distal left femur is partially visualized and grossly unremarkable. Prior right femoral fixation partially visualized. No radiopaque foreign body. Report Dictated on Electronically Signed By: Josue Fields MD Electronically Signed Date/Time: 03/20/2025 1:30 PM EDT [facility] [employer] [facility] Patient Name: HANNA NELSON : 1940 Exam Date/Time: 03/20/2025 13:00 Procedure: XR HIP 2 OR 3 VW LEFT Ordering Provider: PERRY MICHAEL Reason For Exam: prob fx LEFT HIP RADIOGRAPH: CLINICAL INDICATION: prob fx. Left hip pain TECHNIQUE: AP and Lateral views of the left hip COMPARISON: Abdomen and pelvis 01/26/2025. [facility] RADIOLOGY SYSTEM Josue Fields MD - 03/20/2025 Patient Name: HANNA NELSON : 1940 Exam Date/Time: 03/20/2025 13:00 Procedure: XR HIP 2 OR 3 VW LEFT Ordering Provider: PERRY MICHAEL Reason For Exam: prob fx LEFT HIP RADIOGRAPH: CLINICAL INDICATION: prob fx. Left hip pain TECHNIQUE: AP and Lateral views of the left hip COMPARISON: Abdomen and pelvis 01/26/2025. IMPRESSION: FINDINGS/IMPRESSION: There is an acute moderately comminuted subtrochanteric fracture of the left proximal femur with possible slight intertrochanteric component, with shortening of the distal fracture fragment. The left femoral acetabular joint is maintained. The distal left femur is partially visualized and grossly unremarkable. Prior right femoral fixation partially visualized. No radiopaque foreign body. Report Dictated on Electronically Signed By: Josue Fields MD Electronically Signed Date/Time: 03/20/2025 1:30 PM T [facility] XR Hip - left 3 ViewsOrdered By: Josue Fields on 03-20-2025 [facility] Work Phone: XR Tibia and Fibula - right 2 Viewson 03-20-2025 FINDINGS/IMPRESSION: There is no evidence of fracture or dislocation of the right tibia and fibula. There is partially visualized intramedullary malick within the right distal femur. There is moderate degenerative disease of the right knee with joint space narrowing of the medial compartment, osteophytic spurring. There is no radiopaque foreign body. Report Dictated on Electronically Signed By: Josue Fields MD Electronically Signed Date/Time: 03/20/2025 1:33 PM EDT [facility] [employer] [facility] Patient Name: HANNA NELSON : 1940 Exam Date/Time: 03/20/2025 13:00 Procedure: XR TIBIA FIBULA 2 VIEWS RIGHT Ordering Provider: PERRY MICHAEL Reason For Exam: trauma RIGHT TIBIA AND FIBULA RADIOGRAPH CLINICAL INDICATION: trauma. Right leg pain TECHNIQUE: Frontal and lateral views of the right tibia and fibula COMPARISON: None. [facility] Josue Fields MD - 03/20/2025 Patient Name: HANNA NELSON : 1940 Exam Date/Time: 03/20/2025 13:00 Procedure: XR TIBIA FIBULA 2 VIEWS RIGHT Ordering Provider: PERRY MICHAEL Reason For Exam: trauma RIGHT TIBIA AND FIBULA RADIOGRAPH CLINICAL INDICATION: trauma. Right leg pain TECHNIQUE: Frontal and lateral views of the right tibia and fibula COMPARISON: None. IMPRESSION: FINDINGS/IMPRESSION: There is no evidence of fracture or dislocation of the right tibia and fibula. There is partially visualized intramedullary malick within the right distal femur. There is moderate degenerative disease of the right knee with joint space narrowing of the medial compartment, osteophytic spurring. There is no radiopaque foreign body. Report Dictated on Electronically Signed By: Josue Fields MD Electronically Signed Date/Time: 03/20/2025 1:33 PM EDT [facility] BASIC METABOLIC PANELon 08-0 Anion gap [Moles/Vol] 10 mmol/L Normal 3-13 [facility] Comment on above: Performed By: #### L AB15 ####Rn Building: BROOKE RINCON ([id number])[facility] ([address] Calcium [Mass/Vol] 8.9 mg/dL Normal 8.8-10.0 [facility] Comment on above: Performed By: #### L AB15 ####Rn Building: BROOKE RINCON ([id number])[facility] ([facility])[address] [place] [address] Chloride [Moles/Vol] 111 mmol/L High 98-107 [facility] Comment on above: Performed By: #### L AB15 ####Rn Building: BROOKE RINCON ([id number])[facility])[address] [place] [address] CO2 [Moles/Vol] 18 mmol/L Low 23-31 [facility] Comment on above: Performed By: #### L AB15 ####Rn Building: BROOKE RINCON ([id number])[facility])[address] [place] [address] Creatinine [Mass/Vol] 1.10 mg/dL Normal 0.57-1.11 [facility] Comment on above: Performed By: #### L AB15 ####Rn Building: BROOKE RINCON ([id number])[facility])[address] [place] [address] GLOMERULAR FILTRATION RATE ML/MIN/1.73 SQ M.PREDICTED 49.3 mL/min/1.73m*2 Low >60.0 [facility] Comment on above: Result Comment: Calc ulation based on the Chronic Kidney Disease Epidemiology Collaboration (CKD-EPI) equation refit without adjustment for race Performed By: #### L AB15 ####Rn Building: BROOKE RINCON ([id number])[facility])[address] [place] [address] Glucose [Mass/Vol] 107 mg/dL Normal 82-115 [facility] Comment on above: Performed By: #### L AB15 ####Rn Building: BROOKE RINCON ([id number])[facility])[address] [place] [address] Potassium [Moles/Vol] 4.4 mmol/L Normal 3.5-5.1 [facility] Comment on above: Result Comment: [facility] potassium values may be up to 0.5 mmol/L lower than serum values. Performed By: #### L AB15 ####Rn Building: BROOKE RINCON ([id number])[facility])[address] [place] [address] Sodium [Moles/Vol] 139 mmol/L Normal 136-145 [facility] Comment on above: Performed By: #### L AB15 ####Rn Building: BROOKE RINCON ([id number])[facility] ([facility])[address] [place] [address] Urea nitrogen [Mass/Vol] 35 mg/dL High 9-23 [facility] Comment on above: Performed By: #### L AB15 ####Rn Building: BROOKE RINCON ([id number])[facility] ([facility])[address] [place] [address] Basic metabolic 1998 panelon 03-15-2025 Anion gap [Moles/Vol] 10 mmol/L 3 - 13 mmol/L [facility] Calcium [Mass/Vol] 8.9 mg/dL 8.8 - 10. 0 mg/dL [facility] Chloride [Moles/Vol] 111 mmol/L High 98 - 10 7 mmol/L [facility] CO2 [Moles/Vol] 18 mmol/L Low 23 - 31 mmol/L [facility] Creatinine [Mass/Vol] 1.1 mg/dL 0.57 - 1.11 mg/dL [facility] GFR/1.73 sq M.predicted (S/P/Bld) [Vol rate/Area] 49.3 mL/min Low - PINF [facility] Comment on above: Calculation based on the Chronic Kidney Disease Epidemiology Collaboration (CKD-EPI) equation refit without adjustment for race Glucose [Mass/Vol] 107 mg/dL 82 - 115 mg/dL [facility] Interpretation and review of laboratory results Abnormal [facility] Potassium [Moles/Vol] 4.4 mmol/L 3.5 - 5.1 mmol/L [facility] Comment on above: Plasma potassium ashley ues may be up to 0.5 mmol/L lower than serum values. Sodium [Moles/Vol] 139 mmol/L 136 - 145 mmol/L [facility] Urea nitrogen [Mass/Vol] 35 mg/dL High 9 - 23 mg/dL [facility] Consulton 03-15-2025 Consult Normal [facility] Laboratory - Chemistry and C hemistry - challengeon 03-15-2025 Glucose [Mass/Vol] 149 mg/dL High 70 - 100 mg/dL [facility] Glucose [Mass/Vol] 123 mg/dL High 70 - 100 mg/dL [facility] No Panel Informationon 03-15 Interpretation and review of laboratory results Abnormal [facility] [employer] Performed by: [facility], [address] [place] [address], [facility] [address] CLIA ID: [id number] [facility] [employer] Interpretation and review of laboratory results Abnormal [facility] Performed by: [facility], [address] [facility], [facility] [address] CLIA ID: [id number] [facility] Nursing Noteon 03-15-2025 Nursing Note Ok for discharge, HL and tele have been discontinued. Reviewed home going instructions. States she understands and has no questions. Has belongings. Awaiting ride home. Normal [facility] [employer] [facility] Progress Noteon 03-15-2025 Progress Note Normal [facility] [employer] [facility] Progress Note Normal [facility] [employer] [facility] US Heart TransthoracicOrdere d By: Vero Byrd on 03-15-2025 Aortic Arch 3.6 cm [employer] Phone: [phone] Aortic Sinus Valsalva 3.3 cm [facility] [employer] Phone: [phone] Aortic Sinus Valsalva Index 1.58 cm/m2 [employer] Phone: [phone] Aortic valve Mean systole pressure gradient by US.doppler derived full Bernoulli 3 mmHg [employer] Phone: [phone] Aortic valve Orifice area by US 2.8 cm2 [employer] Phone: [phone] Aortic valve Peak systolic flow by US.doppler 0.9 m/s [employer] Phone: AR Max Velocity PISA 4.2 m/s [email or web address] Phone: [phone] AR PHT 574.9 ms [employer] Phone: [phone] Ascending Aorta 3.5 cm [employer] Phone: [phone] Ascending Aorta Index 1.67 cm/m2 Sum [employer] Phone: [phone] AV Area by Peak Velocity 1.1 cm2 [employer] Phone: [phone] AV Area by VTI 1.1 cm2 [employer] Phone: [phone] AV Peak Gradient 6 mmHg [employer] Phone: AV Peak Velocity 1.2 m/s [facility] Work Phone: AV Velocity Ratio 0.[address] [facility] Work Phone: [phone] AV VTI 27 cm [facility] [employer] Work Phone: [phone] BRAD/BSA Peak Velocity 0.5 cm2/m2 Sum dc [employer] Work Phone: [phone] BRAD/BSA VTI 0.5 cm2/m2 [facility] [employer] Work Phone: [phone] E/E' Lateral 19.17 [facility] [employer] Work Phone: [phone] E/E' Ratio (Averaged) 16.77 Sum [facility] [employer] Work Phone: [phone] E/E' Septal 14.38 [facility] [employer] Phone: Est. RA Pressure [address] [facility] [address] [facility] Phone: Fractional Shortening 2D 28 % 28 - 44 % [facility] Phone: Interpretation and review of laboratory results Abnormal [facility] Phone: IVC Diameter 1.[address] [facility] [facility] Phone: IVSd 1 cm Abnormal 0.6 - 0.[address] [facility] Phone: LA Diameter 4.[address] [facility] Phone: LA Size Index 2.11 cm/m2 [facility] Phone: LA Volume 2C 64 mL Abnormal 22 - [address] [facility] Work Phone: LA Volume 4C 81 mL Abnormal 22 - [address] [facility] Phone: LA Volume A/L [address] [facility] Phone: LA Volume BP 78 mL Abnormal 22 - [address] [facility] Phone: LA Volume Index 2C 31 mL/m2 16 - 34 mL/m2 [facility] Phone: LA Volume Index 4C 39 mL/m2 Abnormal 16 - 34 mL/m2 [facility] Work Phone: LA Volume Index A/L 39 mL/m2 16 - 34 mL/m2 [facility] [employer] Work Phone: LA Volume Index BP 37 ml/m2 Abnormal 16 - 34 ml/m2 [facility] [employer] Work Phone: Left ventricular Ejection fraction by US.2D+Calculated by biplane method of disks 57 % 55 - 100 % [facility] [employer] Work Phone: LV E' Lateral Velocity 6 cm/s [facility] Work Phone: [phone] LV E' Septal Velocity 8 cm/s [facility] Work Phone: [phone] LV EDV A2C 53 mL [facility] [employer] Work Phone: LV EDV A4C 94 mL [facility] [employer] Work Phone: [phone] LV EDV BP 72 mL 56 - 104 mL [facility] [employer] Work Phone: LV EDV Index A2C 25 mL/m2 [facility] [employer] Work Phone: LV EDV Index A4C 45 mL/m2 [facility] [employer] Work Phone: [phone] LV EDV Index BP 34 mL/m2 [facility] [employer] Work Phone: [phone] LV Ejection Fraction A2C 63 % [facility] [employer] Work Phone: [phone] LV Ejection Fraction A4C 49 % [facility] [employer] Work Phone: [phone] LV ESV A2C 20 mL [facility] [employer] Work Phone: LV ESV A4C 47 mL [facility] [employer] Work Phone: LV ESV BP 31 mL 19 - 49 mL [facility] [employer] Work Phone: [phone] LV ESV Index A2C 10 mL/m2 [facility] [employer] Work Phone: LV ESV Index A4C 22 mL/m2 [facility] [employer] Work Phone: LV ESV Index BP 15 mL/m2 [facility] [employer] Work Phone: LV Mass 2D 164.5 g Abnormal 67 - 162 g [facility] [employer] Work Phone: LV Mass 2D Index 78.7 g/m2 43 - 95 g/m2 [facility] Work Phone: LV RWT Ratio 0.[address] [facility] Work Phone: [phone] LVIDd 4.7 cm 3.9 - 5.[address] [facility] [facility] Work Phone: [phone] LVIDd Index 2.25 cm/m2 [facility] [facility] Work Phone: [phone] LVIDs 3.[address] [facility] [facility] Work Phone: [phone] LVIDs Index 1.63 cm/m2 [facility] Work Phone: [phone] LVOT Cardiac Output 1.9 liter/mi nu te [facility] Work Phone: [phone] LVOT Diameter 1.9 cm [facility] [employer] Work Phone: [phone] LVOT Mean Gradient [address] [facility] [facility] Work Phone: [phone] LVOT Peak Gradient [address] [facility] [facility] Work Phone: [phone] LVOT Peak Velocity 0.5 m/s [facility] [employer] Work Phone: [phone] LVOT Stroke Volume Index 14.8 mL/m2 [facility] Work Phone: [phone] LVOT SV 30.[address] [facility] Work Phone: [phone] LVOT VTI 10.9 cm [facility] [employer] Work Phone: [phone] LVOT:AV VTI Index 0.4 [facility] [employer] Work Phone: [phone] LVPWd 1 cm Abnormal 0.6 - 0.9 cm [facility] [employer] Work Phone: [phone] MR VTI 189.2 cm [facility] [employer] Work Phone: [phone] MV A Velocity 0.01 m/s [facility] [employer] Work Phone: [phone] MV E Velocity 1.15 m/s [facility] [employer] Work Phone: [phone] MV E Wave Deceleration Time 135.[address] [facility] Work Phone: [phone] MV E/A [address] [facility] Work Phone: [phone] MV Regurg Velocity PISA 5.3 m/s [facility] [employer] Work Phone: [phone] RA Area 4C 48.3 mL [employer] Work Phone: RA Area 4C 46.6 mL [facility] [employer] Work Phone: RV Basal Dimension 3.6 cm [facility] [employer] Work Phone: RV Free Wall Peak S' 10 cm/s [facility] [employer] Work Phone: RV Longitudinal Dimension 7.7 cm [facility] [employer] Work Phone: RV Mid Dimension 2.4 cm [facility] [employer] Work Phone: RVSP 35 mmHg [facility] [employer] Work Phone: Sinotubular Junction 2.5 cm [facility] [employer] Work Phone: TAPSE 1.4 cm Abnormal 1.7 cm [facility] [employer] Work Phone: TR Max Velocity 2.84 m/s [facility] [employer] Work Phone: TR Peak Gradient 32 mmHg [facility] [employer] Work Phone: TR Peak Velocity PISA 2.7 m/s [facility] [employer] Work Phone: TR VTI 84.2 cm [facility] [employer] Work Phone: [facility] [employer] Work Phone: Heart Transthoracicon Left Ventricle: Left ventricle size is normal. Normal wall thickness. Normal left ventricular systolic function. EF by 2D Simpsons Biplane is 57%. Normal wall motion. Right Ventricle: Right ventricle size is normal. Normal systolic function. Aortic Valve: Mild (1+) regurgitation. Mitral Valve: Mild to moderate (1-2+) regurgitation. Tricuspid Valve: Mild to moderate (1-2+) regurgitation. RVSP is 35 mmHg. Left Atrium: Left atrium is mildly dilated..LA Vol Index is 37 ml/m2. Left Ventricle Left ventricle size is normal. Normal wall thickness. Normal left ventricular systolic function. EF by 2D Simpsons Biplane is 57%. Normal wall motion. Indeterminate diastolic function due to atrial fibrillation. Right Ventricle Right ventricle size is normal. Normal systolic function. Left Atrium Left atrium is mildly dilated. Left atrium size is mildly increased (LA volume index 35-41 mL/m2).LA Vol Index is 37 ml/m2. Right Atrium Right atrium size is normal. IVC/SVC IVC diameter is normal and decreases greater than 50% during inspiration; therefore the estimated right atrial pressure is normal (~3 mmHg). Mitral Valve Valve structure is normal. Mild annular calcification. Mild to moderate (1-2+) regurgitation. No stenosis noted. Tricuspid Valve Valve structure is normal. Mild to moderate (1-2+) regurgitation. RVSP is 35 mmHg. Aortic Valve Trileaflet. No cusp thickening. Mildly calcified cusps. Mild (1+) regurgitation. No stenosis. Pulmonic Valve The pulmonic valve was not well visualized. Trace regurgitation. Ascending Aorta Normal sized sinuses of Valsalva and ascending aorta. Pericardium No pericardial effusion. Septum No interatrial shunt visualized on color Doppler. Study Details Image quality: adequate. Heart rate: 77 bpm. Blood pressure: 158/89 mmHg. The underlying ECG rhythm was atrial fibrillation. No contrast was given. Comparison Study There is no prior study available for comparison CV [facility] CBC (HEMOGRAM)on 03-14-2025 Erythrocyte distribution width (RBC) [Ratio] 14.8 % Normal 11.5-15.0 [facility] Comment on above: Performed By: #### L [id number] ####Rn Building: BROOKE RINCON ([id number])[address] Hematocrit (Bld) [Volume fraction] 34.7 % Low 35.0-47.0 [facility] Comment on above: Performed By: #### L [id number] ####Rn Building: BROOKE RINCON ([id number])[address] Hemoglobin (Bld) [Mass/Vol] 11.0 g/dL Low 11.7-16.0 [facility] Comment on above: Performed By: #### L [id number] ####Rn Building: BROOKE RINCON ([id number])[address] MCH (RBC) [Entitic mass] 29.9 pg Normal 26.0-34.0 [facility] Comment on above: Performed By: #### L [id number] ####Rn Building: BROOKE RINCON ([id number])[facility] ([facility])[address] [place] [address] MCHC 31.7 % Normal 30.5-36.0 [facility] Comment on above: Performed By: #### L [id number] ####Rn Building: BROOKE RINCON ([id number])[facility] ([facility])[address] [place] [address] MCV (RBC) [Entitic vol] 94.3 fL Normal 77.0-99.0 [facility] Comment on above: Performed By: #### L [id number] ####Rn Building: BROOKE RINCON ([id number])[facility])[address] [place] [address] Platelet mean volume (Bld) [Entitic vol] 10.3 fL Normal 9.0-12.7 [facility] Comment on above: Performed By: #### L [id number] ####Rn Building: BROOKE RINCON ([id number])[facility] ([facility])[address] [place] [address] Platelets (Bld) [#/Vol] 298 10*3/uL Normal 140-440 [facility] Comment on above: Performed By: #### L [id number] ####Rn Building: BROOKE RINCON ([id number])[facility])[address] [place] [address] RBC (Bld) [#/Vol] 3.68 10*6/uL Low 3.80-5.20 [facility] Comment on above: Performed By: #### L [id number] ####Rn Building: BROOKE RINCON ([id number])[facility] ([facility])[address] [place] [address] [place] WBC (Bld) [#/Vol] 7.8 10*3/uL Normal 3.6-10.7 [facility] Comment on above: Performed By: #### L [id number] ####Rn Building: BROOKE RINCON ([id number])[facility])[address] [place] [address] CBC panel Auto (Bld)on 03-14 Erythrocyte distribution width (RBC) [Ratio] 14.8 % 11.5 - 15.0 % [facility] Hematocrit (Bld) [Volume fraction] 34.7 % Low 35.0 - 47.0 % [facility] Hemoglobin (Bld) [Mass/Vol] 11 g/dL Low 11.7 - 16.0 g/dL [facility] Interpretation and review of laboratory results Abnormal [facility] MCH (RBC) [Entitic mass] 29.9 pg 26.0 - 34.0 pg [facility] MCHC (RBC) [Mass/Vol] 31.7 % 30.5 - 36.0 % [facility] MCV (RBC) [Entitic vol] 94.3 fL 77.0 - 99.0 fL [facility] Platelet mean volume (Bld) [Entitic vol] 10.3 fL 9.0 - 12.7 fL [facility] Platelets (Bld) [#/Vol] 298 10*3/uL 140 - 440 10*3/uL [facility] RBC (Bld) [#/Vol] 3.68 10*6/uL Low 3.80 - 5.20 10*6/uL [facility] WBC (Bld) [#/Vol] 7.8 10*3/uL 3.6 - 10.7 10*3/uL [facility] COMPLETE URINALYSIS WITH REF MAI TO CULTUREon 03-14-2025 BILIRUBIN, TOTAL PRESENCE IN URINE Negative Normal Negative [facility] Comment on above: Performed By: #### L [id number] ####Rn Building: BROOKE RINCON ([id number])[facility])[address] [place] [address] Clarity (U) Clear Normal Clear [facility] [employer] [facility] Comment on above: Performed By: #### L [id number] ####Rn Building: BROOKE RINCON ([id number])[facility] ([facility])[address] [place] [address] Color (U) Colorless Normal Lt. Yellow [facility] Comment on above: Performed By: #### L [id number] ####Rn Building: BROOKE RINCON ([id number])[facility] ([facility])[address] [place] [address] Glucose (U) [Mass/Vol] 50 mg/dL Normal Yenny l (<70) [facility] Comment on above: Performed By: #### L [id number] ####Rn Building: BROOKE RINCON ([id number])[facility] ([facility])[address] [place] [address] HEMOGLOBIN PRESENCE IN URINE Negative Normal Negative [facility] Comment on above: Performed By: #### L [id number] ####Rn Building: BROOKE RINCON ([id number])[facility] ([facility])[address] [place] [address] Ketones Ql (U) Negative Normal Negative [facility] Comment on above: Performed By: #### L [id number] ####Rn Building: BROOKE RINCON ([id number])[facility] ([facility])[address] [place] [address] LEUKOCYTE ESTERASE PRESENCE IN URINE BY TEST STRIP Negative Normal Negative [facility] Comment on above: Performed By: #### L [id number] ####Rn Building: BROOKE RINCON ([id number])[facility])[address] [place] [address] NITRITE PRESENCE IN URINE Negative Normal Negative [facility] Comment on above: Performed By: #### L [id number] ####Rn Building: BROOKE RINCON ([id number])[facility] ([facility])[address] [place] [address] pH (U) 6.0 [pH] Normal 5.0-8.0 [facility] Comment on above: Performed By: #### L [id number] ####Rn Building: BROOKE RINCON ([id number])[facility])[address] [place] [address] Protein (U) [Mass/Vol] Negative Normal Negative [facility] Comment on above: Performed By: #### L [id number] ####Rn Building: BROOKE RINCON ([id number])[facility])[address] [place] [address] Specific gravity (U) [Rel density] 1.008 Normal 1.005-1.03 0 [facility] Comment on above: Result Comment: CARLTON R COMMENTS:A specimen with <=10 WBC is not consistent with inflammation. This specimen will not reflex to a urine culture. Performed By: #### L [id number] ####Rn Building: BROOKE RINCON ([id number])[facility])[address] [place] [address] UROBILINOGEN (MG/DL) IN URINE Normal Normal Normal (0-1) [facility] Comment on above: Performed By: #### L [id number] ####Rn Building: BROOKE RINCON ([id number])[facility])[address] [place] [address] COMPREHENSIVE METABOLIC PANE David 03-14-2025 Albumin [Mass/Vol] 3.3 g/dL Low 3.4-4.8 [facility] Comment on above: Performed By: #### L [id number], [id number], LAB17 ####Rn Building: BROOKE RINCON ([id number])[facility])[address] [place] [address] ALP [Catalytic activity/Vol] 49 U/L Normal 40-150 [facility] Comment on above: Performed By: #### L AB103, [id number], LAB17 ####Rn Building: BROOKE RINCON ([id number])[facility])[address] [place] [address] ALT [Catalytic activity/Vol] 9 U/L Normal <30 [facility] Comment on above: Performed By: #### L AB103, [id number], LAB17 ####Rn Building: BROOKE RINCON ([id number])[facility])[address] [place] [address] Anion gap [Moles/Vol] 11 mmol/L Normal 3-13 [facility] Comment on above: Performed By: #### L AB103, [id number], LAB17 ####Rn Building: BROOKE RINCON ([id number])[facility])[address] [place] [address] AST [Catalytic activity/Vol] 18 U/L Normal <34 [facility] Comment on above: Performed By: #### L AB103, [id number], LAB17 ####Rn Building: BROOKE RINCON ([id number])[facility])[address] [place] [address] Bilirubin [Mass/Vol] 0.3 mg/dL Normal <1.2 [facility] Comment on above: Performed By: #### L AB103, [id number], LAB17 ####Rn Building: BROOKE RINCON ([id number])[facility])[address] [place] [address] Calcium [Mass/Vol] 9.0 mg/dL Normal 8.8-10.0 [facility] Comment on above: Performed By: #### L AB103, [id number], LAB17 ####Rn Building: BROOKE RINCON ([id number])[facility] ([facility])[address] [place] [address] [place] Chloride [Moles/Vol] 108 mmol/L High 98-107 [facility] Comment on above: Performed By: #### L AB103, [id number], LAB17 ####Rn Building: BROOKE RINCON ([id number])[facility])[address] [place] [address] [place] CO2 [Moles/Vol] 19 mmol/L Low 23-31 [facility] Comment on above: Performed By: #### L AB103, [id number], LAB17 ####Rn Building: BROOKE RINCON ([id number])[facility])[address] [place] [address] Creatinine [Mass/Vol] 1.46 mg/dL High 0.57-1.11 [facility] Comment on above: Performed By: #### L AB103, [id number], LAB17 ####Rn Building: [facility] ([id number])[facility])[address] [place] [address] [place] GLOMERULAR FILTRATION RATE ML/MIN/1.73 SQ M.PREDICTED 35.1 mL/min/1.73m*2 Low >60.0 [facility] Comment on above: Result Comment: Calc ulation based on the Chronic Kidney Disease Epidemiology Collaboration (CKD-EPI) equation refit without adjustment for race Performed By: #### L AB103, [id number], LAB17 ####Rn Building: BROOKE RINCON ([id number])[facility])[address] [place] [address] Glucose [Mass/Vol] 159 mg/dL High 82-115 [facility] Comment on above: Performed By: #### L AB103, [id number], LAB17 ####Rn Building: BROOKE RINCON ([id number])[facility])[address] [place] [address] Potassium [Moles/Vol] 4.4 mmol/L Normal 3.5-5.1 [facility] Comment on above: Result Comment: [facility] potassium values may be up to 0.5 mmol/L lower than serum values. Performed By: #### L AB103, [id number], LAB17 ####Rn Building: BROOKE RINCON ([id number])[facility])[address] [place] [address] Protein [Mass/Vol] 6.8 g/dL Normal 6.4-8.3 [facility] Comment on above: Performed By: #### L AB103, [id number], LAB17 ####Rn Building: BROOKE RINCON ([id number])[facility])[address] [place] [address] [place] Sodium [Moles/Vol] 138 mmol/L Normal 136-145 [facility] Comment on above: Performed By: #### L AB103, [id number], LAB17 ####Rn Building: BROOKE RINCON ([id number])[facility])[address] [place] [address] [place] Urea nitrogen [Mass/Vol] 43 mg/dL High 9-23 [facility] Comment on above: Performed By: #### L AB103, [id number], LAB17 ####Rn Building: BROOKE RINCON ([id number])[facility] ([facility])[address] [place] [address] Comprehensive metabolic 1998 panelon 03-14-2025 Albumin [Mass/Vol] 3.3 g/dL Low 3.4 - 4.8 g/dL [facility] ALP [Catalytic activity/Vol] 49 U/L 40 - 150 U/L [facility] ALT [Catalytic activity/Vol] 9 U/L NINF - 30 U/L [facility] Anion gap [Moles/Vol] 11 mmol/L 3 - 13 mmol/L [facility] AST [Catalytic activity/Vol] 18 U/L NINF - 34 U/L [facility] Bilirubin [Mass/Vol] 0.3 mg/dL NINF - 1.2 mg/dL [facility] Calcium [Mass/Vol] 9 mg/dL 8.8 - 10. 0 mg/dL [facility] Chloride [Moles/Vol] 108 mmol/L High 98 - 10 7 mmol/L [facility] CO2 [Moles/Vol] 19 mmol/L Low 23 - 31 mmol/L [facility] Creatinine [Mass/Vol] 1.46 mg/dL High 0.57 - 1.11 mg/dL [facility] GFR/1.73 sq M.predicted (S/P/Bld) [Vol rate/Area] 35.1 mL/min Low - PINF [facility] Comment on above: Calculation based on the Chronic Kidney Disease Epidemiology Collaboration (CKD-EPI) equation refit without adjustment for race Glucose [Mass/Vol] 159 mg/dL High 82 - 115 mg/dL [facility] Interpretation and review of laboratory results Abnormal [facility] Potassium [Moles/Vol] 4.4 mmol/L 3.5 - 5.1 mmol/L [facility] Comment on above: Plasma potassium ashley ues may be up to 0.5 mmol/L lower than serum values. Protein [Mass/Vol] 6.8 g/dL 6.4 - 8.3 g/dL [facility] Sodium [Moles/Vol] 138 mmol/L 136 - 145 mmol/L [facility] Urea nitrogen [Mass/Vol] 43 mg/dL High 9 - 23 mg/dL [facility] Laboratory - Chemistry and C hemistry - challengeon 03-14-2025 Glucose [Mass/Vol] 233 mg/dL High 70 - 100 mg/dL [facility] Glucose [Mass/Vol] 161 mg/dL High 70 - 100 mg/dL [facility] Glucose [Mass/Vol] 168 mg/dL High 70 - 100 mg/dL [facility] Glucose [Mass/Vol] 133 mg/dL High 70 - 100 mg/dL [facility] TSH Qn 1.71 m[IU]/L [facility] Magnesium [Mass/Vol] 1.6 mg/dL 1.6 - 2 .6 mg/dL [facility] MAGNESIUMon 03-14-2025 Magnesium [Mass/Vol] 1.6 mg/dL Normal 1.6-2.6 [facility] Comment on above: Result Comment: CARLTON Geiger COMMENTS:Higher values can be expected in females during menses. Performed By: #### L AB103, [id number], LAB17 ####Rn Building: BROOKE RINCON ([id number])[facility] ([facility])[address] [place] [address] Magnesium [Mass/Vol]on 03-14 Interpretation and review of laboratory results Normal [facility] Higher values can be expected in females during menses. [facility] [employer] No Panel Informationon 03-14 Interpretation and review of laboratory results Abnormal [facility] Performed by: [address] [address] CLIA ID: [id number] [facility] Interpretation and review of laboratory results Abnormal [facility] Performed by: [address] [address] CLIA ID: [id number] [facility] Interpretation and review of laboratory results Abnormal [facility] Performed by: [address] [address] CLIA ID: [id number] [facility] Interpretation and review of laboratory results Abnormal [facility] Performed by: [address] [address] CLIA ID: [id number] [facility] Progress Noteon 03-14-2025 Progress Note Normal [facility] Progress Note Normal [facility] Progress Note Nutrition rescreen completed. Chart reviewed. Patient to be monitored and followed by the diet optical engineering technician. LEO Cantu Normal [facility] THYROID STIMULATING HORMONEo n 03-14-2025 THYROID STIMULATING HORMONE 1.71 uIU/mL Normal 0.35-4.94 [facility] Comment on above: Performed By: #### L AB103, [id number], LAB17 ####Rn Building: BOROKE RINCON ([id number])[facility] ([facility])[address] [place] [address] TSH Qnon 03-14-2025 Interpretation and review of laboratory results Normal [facility] Urinalysis complete panel (U )on 03-14-2025 Bilirubin Ql (U) Negative Negative mg/dL [facility] Clarity (U) Clear Clear [facility] Color (U) Colorless Lt. Yellow [facility] Glucose Ql (U) 50 mg/dL Normal (<70) [facility] Hemoglobin Ql (U) Negative Negative mg/dL [facility] Interpretation and review of laboratory results Normal [facility] Ketones (U) [Mass/Vol] Negative Negat eddie mg/dL [facility] Leukocyte esterase Test strip Ql (U) Negative Negative Baljit/uL [facility] Nitrite Ql (U) Negative Negative [facility] pH (U) 6.0 [pH] 5.0 - 8.0 pH [facility] Protein (U) [Mass/Vol] Negative Negat eddie mg/dL [facility] Specific gravity (U) [Rel density] 1.008 1.005 - 1.030 [facility] Urobilinogen (U) [Mass/Vol] Normal Normal (0-1) mg/dL [facility] A specimen with <=10 WBC is not consistent with inflammation. This specimen will not reflex to a urine culture. [facility] CBC (HEMOGRAM)on 03-13-2025 Erythrocyte distribution width (RBC) [Ratio] 14.8 % Normal 11.5-15.0 [facility] Comment on above: Performed By: #### L [id number] ####Rn Building: BROOKE RINCON ([id number])[facility] ([facility])[address] [place] [address] Hematocrit (Bld) [Volume fraction] 34.9 % Low 35.0-47.0 [facility] Comment on above: Performed By: #### L [id number] ####Rn Building: BROOKE RINCON ([id number])[facility])[address] [place] [address] Hemoglobin (Bld) [Mass/Vol] 11.1 g/dL Low 11.7-16.0 [facility] Comment on above: Performed By: #### L [id number] ####Rn Building: BROOKE RINCON ([id number])[facility] ([facility])[address] [place] [address] MCH (RBC) [Entitic mass] 29.8 pg Normal 26.0-34.0 [facility] Comment on above: Performed By: #### L [id number] ####Rn Building: BROOKE RINCON ([id number])[facility])[address] [place] [address] MCHC 31.8 % Normal 30.5-36.0 [facility] Comment on above: Performed By: #### L [id number] ####Rn Building: BROOKE RINCON ([id number])[facility] ([facility])[address] [place] [address] MCV (RBC) [Entitic vol] 93.8 fL Normal 77.0-99.0 [facility] Comment on above: Performed By: #### L [id number] ####Rn Building: BROOKE RINCON ([id number])[facility])[address] [place] [address] Platelet mean volume (Bld) [Entitic vol] 10.3 fL Normal 9.0-12.7 [facility] Comment on above: Performed By: #### L [id number] ####Rn Building: BROOKE RINCON ([id number])[facility])[address] [place] [address] Platelets (Bld) [#/Vol] 368 10*3/uL Normal 140-440 [facility] Comment on above: Performed By: #### L [id number] ####Rn Building: BROOKE RINCON ([id number])[address] RBC (Bld) [#/Vol] 3.72 10*6/uL Low 3.80-5.20 [facility] Comment on above: Performed By: #### L [id number] ####Rn Building: BROOKE RINCON ([id number])[facility])[address] [place] [address] WBC (Bld) [#/Vol] 10.5 10*3/uL Normal 3.6-10.7 [facility] Comment on above: Performed By: #### L [id number] ####Rn Building: BROOKE RINCON ([id number])[address] CBC panel Auto (Bld)on 03-13 Erythrocyte distribution width (RBC) [Ratio] 14.8 % 11.5 - 15.0 % [facility] Hematocrit (Bld) [Volume fraction] 34.9 % Low 35.0 - 47.0 % [facility] Hemoglobin (Bld) [Mass/Vol] 11.1 g/dL Low 11.7 - 16.0 g/dL [facility] Interpretation and review of laboratory results Abnormal [facility] MCH (RBC) [Entitic mass] 29.8 pg 26.0 - 34.0 pg [facility] MCHC (RBC) [Mass/Vol] 31.8 % 30.5 - 36.0 % [facility] MCV (RBC) [Entitic vol] 93.8 fL 77.0 - 99.0 fL [facility] Platelet mean volume (Bld) [Entitic vol] 10.3 fL 9.0 - 12.7 fL [facility] Platelets (Bld) [#/Vol] 368 10*3/uL 140 - 440 10*3/uL [facility] RBC (Bld) [#/Vol] 3.72 10*6/uL Low 3.80 - 5.20 10*6/uL [facility] WBC (Bld) [#/Vol] 10.5 10*3/uL 3.6 - 10.7 10*3/uL [facility] COMPREHENSIVE METABOLIC PANE David 03-13-2025 Albumin [Mass/Vol] 3.4 g/dL Normal 3.4-4.8 [facility] Comment on above: Performed By: #### L AB17, [id number] ####Rn Building: BROOKE RINCON ([id number])[facility] ([facility])[address] [place] [address] ALP [Catalytic activity/Vol] 46 U/L Normal 40-150 [facility] Comment on above: Performed By: #### L AB17, [id number] ####Rn Building: BROOKE RINCON ([id number])[facility] ([facility])[address] [place] [address] ALT [Catalytic activity/Vol] 15 U/L Normal <30 [facility] Comment on above: Performed By: #### L AB17, [id number] ####Rn Building: BROOKE RINCON ([id number])[facility] ([facility])[address] [place] [address] Anion gap [Moles/Vol] 9 mmol/L Normal 3-13 [facility] Comment on above: Performed By: #### L AB17, [id number] ####Rn Building: BROOKE RINCON ([id number])[facility] ([facility])[address] [place] [address] [place] AST [Catalytic activity/Vol] 18 U/L Normal <34 [facility] Comment on above: Performed By: #### L AB17, [id number] ####Rn Building: BROOKE RINCON ([id number])[facility] ([facility])[address] [place] [address] [place] Bilirubin [Mass/Vol] 0.3 mg/dL Normal <1.2 [facility] Comment on above: Performed By: #### L AB17, [id number] ####Rn Building: BROOKE RINCON ([id number])[facility] ([facility])[address] [place] [address] [place] Calcium [Mass/Vol] 9.4 mg/dL Normal 8.8-10.0 [facility] Comment on above: Performed By: #### L AB17, [id number] ####Rn Building: BROOKE RINCON ([id number])[facility] [place] [address] Chloride [Moles/Vol] 113 mmol/L High 98-107 [facility] Comment on above: Performed By: #### L AB17, [id number] ####Rn Building: BROOKE RINCON ([id number])[facility] [place] [address] CO2 [Moles/Vol] 19 mmol/L Low 23-31 [facility] Comment on above: Performed By: #### L AB17, [id number] ####Rn Building: BROOKE RINCON ([id number])[facility] ([facility])[address] [place] [address] Creatinine [Mass/Vol] 1.09 mg/dL Normal 0.57-1.11 [facility] Comment on above: Performed By: #### L AB17, [id number] ####Rn Building: BROOKE RINCON ([id number])[facility] ([facility])[address] [place] [address] GLOMERULAR FILTRATION RATE ML/MIN/1.73 SQ M.PREDICTED 49.9 mL/min/1.73m*2 Low >60.0 [facility] Comment on above: Result Comment: Calc ulation based on the Chronic Kidney Disease Epidemiology Collaboration (CKD-EPI) equation refit without adjustment for race Performed By: #### L AB17, [id number] ####Rn Building: BROOKE RINCON ([id number])[facility] ([facility])[address] [place] [address] [place] Glucose [Mass/Vol] 45 mg/dL Critically low 82-115 [facility] Comment on above: Performed By: #### L AB17, [id number] ####Rn Building: BROOKE RINCON ([id number])[facility] ([facility])[address] [place] [address] [place] Potassium [Moles/Vol] 3.9 mmol/L Normal 3.5-5.1 [facility] Comment on above: Result Comment: [facility] potassium values may be up to 0.5 mmol/L lower than serum values. Performed By: #### L AB17, [id number] ####Rn Building: BROOKE RINCON ([id number])[facility])[address] [place] [address] Protein [Mass/Vol] 6.8 g/dL Normal 6.4-8.3 [facility] Comment on above: Performed By: #### L AB17, [id number] ####Rn Building: BROOKE RINCON ([id number])[facility])[address] [place] [address] Sodium [Moles/Vol] 141 mmol/L Normal 136-145 [facility] Comment on above: Performed By: #### L AB17, [id number] ####Rn Building: BROOKE RINCON ([id number])[facility] ([facility])[address] [place] [address] Urea nitrogen [Mass/Vol] 44 mg/dL High 9-23 [facility] Comment on above: Performed By: #### L AB17, [id number] ####Rn Building: BROOKE RINCON ([id number])[facility])[address] [place] [address] Comprehensive metabolic 1998 panelOrdered By: Theresa Bobby on 03-13-2025 Albumin [Mass/Vol] 3.4 g/dL 3.4 - 4.8 g/dL [facility] ALP [Catalytic activity/Vol] 46 U/L 40 - 150 U/L [facility] ALT [Catalytic activity/Vol] 15 U/L NINF - 30 U/L [facility] Anion gap [Moles/Vol] 9 mmol/L 3 - 13 mmol/L [facility] AST [Catalytic activity/Vol] 18 U/L NINF - 34 U/L [facility] Bilirubin [Mass/Vol] 0.3 mg/dL NINF - 1.2 mg/dL [facility] Calcium [Mass/Vol] 9.4 mg/dL 8.8 - 10. 0 mg/dL [facility] Chloride [Moles/Vol] 113 mmol/L High 98 - 10 7 mmol/L [facility] CO2 [Moles/Vol] 19 mmol/L Low 23 - 31 mmol/L [facility] Creatinine [Mass/Vol] 1.09 mg/dL 0.57 - 1.11 mg/dL [facility] GFR/1.73 sq M.predicted (S/P/Bld) [Vol rate/Area] 49.9 mL/min Low - PINF [facility] Comment on above: Calculation based on the Chronic Kidney Disease Epidemiology Collaboration (CKD-EPI) equation refit without adjustment for race Glucose [Mass/Vol] 45 mg/dL Critically low 82 - 11 5 mg/dL [facility] Interpretation and review of laboratory results Abnormal [facility] Potassium [Moles/Vol] 3.9 mmol/L 3.5 - 5.1 mmol/L [facility] Comment on above: Plasma potassium ashley ues may be up to 0.5 mmol/L lower than serum values. Protein [Mass/Vol] 6.8 g/dL 6.4 - 8.3 g/dL [facility] Sodium [Moles/Vol] 141 mmol/L 136 - 145 mmol/L [facility] Urea nitrogen [Mass/Vol] 44 mg/dL High 9 - 23 mg/dL [facility] Consulton 03-13-2025 Consult Normal [facility] ECG 12-LEADon 03-13-2025 ECG 12-LEAD IMPRESSION: EKG shows AFib with RVR, LAD, cannot calculate [place] interval. Normal QRS and QTC intervals. No STEMI, no LVH. Previous EKG AFib with RVR and frequent PVCs Electronically Signed On 03-13-2025 18:03:17 EDT by Norberto Grande Normal [facility] ED Nursing Noteon 03-13-2025 ED Nursing Note BGT rechecked after patient ate breakfast. BGT 130. Normal [facility] ED Nursing Note Breakfast tray deliv ered to patient Normal [facility] ED Nursing Note Morning blood work r esulted with a BS 45. Checked with glucometer and it was 58. Pt provided crackers, apple juice, and a breakfast tray was ordered. No acute signs of distress. Normal [facility] Laboratory - Chemistry and C hemistry - challengeon 03-13-2025 Glucose [Mass/Vol] 182 mg/dL High 70 - 100 mg/dL [facility] Glucose [Mass/Vol] 137 mg/dL High 70 - 100 mg/dL [facility] Glucose [Mass/Vol] 130 mg/dL High 70 - 100 mg/dL [facility] Glucose [Mass/Vol] 58 mg/dL Low 70 - 100 mg/dL [facility] Magnesium [Mass/Vol] 1.7 mg/dL 1.6 - 2 .6 mg/dL [facility] Glucose [Mass/Vol] 184 mg/dL High 70 - 100 mg/dL [facility] MAGNESIUMon 03-13-2025 Magnesium [Mass/Vol] 1.7 mg/dL Normal 1.6-2.6 [facility] [employer] [facility] Comment on above: Result Comment: CARLTON Geiger COMMENTS:Higher values can be expected in females during menses. Performed By: #### L AB17, [id number] ####Rn Building: BROOKE RINCON ([id number])[facility] ([facility])[address] [place] [address] Magnesium [Mass/Vol]on 03-13 Interpretation and review of laboratory results Normal [facility] Higher values can be expected in females during menses. [facility] No Panel Informationon 03-13 Interpretation and review of laboratory results Abnormal [facility] [employer] Performed by: [facility], [address] [place] [address] CLIA ID: [id number] [facility] EKG shows AFib with RVR, LAD, cannot calculate [place] interval. Normal QRS and QTC intervals. No STEMI, no LVH. Previous EKG AFib with RVR and frequent PVCs Electronically Signed On 03-13-2025 18:03:17 EDT by Norberto Grande CV Norberto Massey MD - 03/13/2025 IMPRESSION: EKG shows AFib with RVR, LAD, cannot calculate [place] interval. Normal QRS and QTC intervals. No STEMI, no LVH. Previous EKG AFib with RVR and frequent PVCs Electronically Signed On 03-13-2025 18:03:17 EDT by Norberto Grande [facility] Interpretation and review of laboratory results Abnormal [facility] Performed by: [facility], [address] [place] [address], [facility] [address] CLIA ID: [id number] [facility] [employer] [facility] Interpretation and review of laboratory results Abnormal [facility] Performed by: [facility], [address] [place] [address], [facility] [address] CLIA ID: [id number] [facility] [employer] [facility] Interpretation and review of laboratory results Abnormal [facility] Performed by: [facility], [address] [place] [address], [facility] [address] CLIA ID: [id number] [facility] [employer] [facility] Interpretation and review of laboratory results Abnormal [facility] Performed by: [facility], [address] [place] [address], [facility] [address] CLIA ID: [id number] [facility] [employer] [facility] No Panel InformationOrdered By: Norberto Grande on 03-13-2025 P [place] [address] [facility] Work Phone: [place] Interval 0 ms [employer] Work Phone: QRS [place] 2 degrees [employer] Work Phone: QRSD Interval 85 ms [employer] Work Phone: QT Interval 290 ms [employer] Work Phone: QTC Interval 442 ms [employer] Work Phone: T Wave [place] 33 degrees [employer] Work Phone: [employer] Work Phone: Progress Noteon 03-13-2025 Progress Note Normal [facility] Vital signsOrdered By: Saba Grande on 03-13-2025 Heart rate 143 /min bpm [facility] Work Phone: BASIC METABOLIC PANELon 08-0 Anion gap [Moles/Vol] 12 mmol/L Normal 3-13 [facility] Comment on above: Performed By: #### L AB15, [id number] ####Rn Building: BROOKE RINCON ([id number])[facility] ([facility])[address] [place] [address] Calcium [Mass/Vol] 9.8 mg/dL Normal 8.8-10.0 [facility] Comment on above: Performed By: #### Jaz AB15, [id number] ####Rn Building: BROOKE RINCON ([id number])[facility] ([facility])[address] [place] [address] Chloride [Moles/Vol] 106 mmol/L Normal 98-107 [facility] Comment on above: Performed By: #### Jaz AB15, [id number] ####Rn Building: BROOKE RINCON ([id number])[facility])[address] [place] [address] CO2 [Moles/Vol] 18 mmol/L Low 23-31 [facility] Comment on above: Performed By: #### Jaz BISHOP, [id number] ####Rn Building: BROOKE RINCON ([id number])[facility])[address] [place] [address] Creatinine [Mass/Vol] 1.46 mg/dL High 0.57-1.11 [facility] Comment on above: Performed By: #### Jaz BISHOP, [id number] ####Rn Building: BROOKE RINCON ([id number])[facility] ([facility])[address] [place] [address] [place] GLOMERULAR FILTRATION RATE ML/MIN/1.73 SQ M.PREDICTED 35.1 mL/min/1.73m*2 Low >60.0 [facility] Comment on above: Result Comment: Calc ulation based on the Chronic Kidney Disease Epidemiology Collaboration (CKD-EPI) equation refit without adjustment for race Performed By: #### L AB15, [id number] ####Rn Building: BROOKE RICNON ([id number])[facility])[address] [place] [address] [place] Glucose [Mass/Vol] 167 mg/dL High 82-115 [facility] Comment on above: Performed By: #### L AB15, [id number] ####Rn Building: BROOKE RINCON ([id number])[facility] ([facility])[address] [place] [address] [place] Potassium [Moles/Vol] 5.4 mmol/L High 3.5-5.1 [facility] Comment on above: Result Comment: TCPo tential interference from hemolysis Performed By: #### L AB15, [id number] ####Rn Building: BROOKE RINCON ([id number])[facility] ([facility])[address] [place] [address] Sodium [Moles/Vol] 136 mmol/L Normal 136-145 [facility] Comment on above: Performed By: #### Jaz GARBER15, [id number] ####Rn Building: BROOKE RINCON ([id number])[facility] ([facility])[address] [place] [address] Urea nitrogen [Mass/Vol] 45 mg/dL High 9-23 [facility] Comment on above: Performed By: #### Jaz GARBER15, [id number] ####Rn Building: BROOKE RINCON ([id number])[facility] ([facility])[address] [place] [address] Basic metabolic 1998 panelon 03-12-2025 Anion gap [Moles/Vol] 12 mmol/L 3 - 13 mmol/L [facility] Calcium [Mass/Vol] 9.8 mg/dL 8.8 - 10. 0 mg/dL [facility] Chloride [Moles/Vol] 106 mmol/L 98 - 10 7 mmol/L [facility] CO2 [Moles/Vol] 18 mmol/L Low 23 - 31 mmol/L [facility] Creatinine [Mass/Vol] 1.46 mg/dL High 0.57 - 1.11 mg/dL [facility] GFR/1.73 sq M.predicted (S/P/Bld) [Vol rate/Area] 35.1 mL/min Low - PINF [facility] Comment on above: Calculation based on the Chronic Kidney Disease Epidemiology Collaboration (CKD-EPI) equation refit without adjustment for race Glucose [Mass/Vol] 167 mg/dL High 82 - 115 mg/dL [facility] Interpretation and review of laboratory results Abnormal [facility] Potassium [Moles/Vol] 5.4 mmol/L High 3.5 - 5.1 mmol/L [facility] Comment on above: TC Potential interference from hemolysis Sodium [Moles/Vol] 136 mmol/L 136 - 145 mmol/L [facility] Urea nitrogen [Mass/Vol] 45 mg/dL High 9 - 23 mg/dL [facility] CBC W Auto Differential pane l (Bld)on 03-12-2025 Basophils (Bld) [#/Vol] 0.1 10*3/uL 0.0 - 0.2 10*3/uL [facility] Basophils/100 WBC (Bld) 0.5 % 0.0 - 2.0 % [facility] Eosinophils (Bld) [#/Vol] 0.2 10*3/uL 0.0 - 0.5 10*3/uL [facility] Eosinophils/100 WBC (Bld) 1.9 % 0.0 - 6.0 % [facility] Erythrocyte distribution width (RBC) [Ratio] 14.8 % 11.5 - 15.0 % [facility] Hematocrit (Bld) [Volume fraction] 39.8 % 35.0 - 47.0 % [facility] Hemoglobin (Bld) [Mass/Vol] 12.9 g/dL 11.7 - 16.0 g/dL [facility] Immature granulocytes (Bld) [#/Vol] 0.1 10*3/uL High NINF - 0.1 10*3/uL [facility] Immature granulocytes/100 WBC (Bld) 0.6 % 0.0 - 2.0 % [facility] Interpretation and review of laboratory results Abnormal [facility] Lymphocytes (Bld) [#/Vol] 1.7 10*3/uL 1.0 - 4.3 10*3/uL [facility] Lymphocytes/100 WBC (Bld) 16 % 15.0 - 45.0 % [facility] MCH (RBC) [Entitic mass] 30.1 pg 26.0 - 34.0 pg [facility] MCHC (RBC) [Mass/Vol] 32.4 % 30.5 - 36.0 % [facility] MCV (RBC) [Entitic vol] 93 fL 77.0 - 99.0 fL [facility] Monocytes (Bld) [#/Vol] 0.6 10*3/uL 0.0 - 0.9 10*3/uL [facility] Monocytes/100 WBC (Bld) 5.9 % 5.0 - 13.0 % [facility] Neutrophils (Bld) [#/Vol] 7.9 10*3/uL High 1.8 - 7.5 10*3/uL [facility] Neutrophils/100 WBC (Bld) 75.1 % 38.0 - 82.0 % [facility] Nucleated RBC/100 WBC (Bld) [Ratio] 0 % [facility] Platelet mean volume (Bld) [Entitic vol] 10.3 fL 9.0 - 12.7 fL [facility] Platelets (Bld) [#/Vol] 389 10*3/uL 140 - 440 10*3/uL [facility] RBC (Bld) [#/Vol] 4.28 10*6/uL 3.80 - 5.20 10*6/uL [facility] WBC (Bld) [#/Vol] 10.6 10*3/uL 3.6 - 10.7 10*3/uL [facility] CBC WITH AUTO DIFFERENTIALon 03-12-2025 Basophils (Bld) [#/Vol] 0.1 10*3/uL Normal 0.0-0.2 [facility] Comment on above: Performed By: #### L [id number] ####Rn Building: BROOKE RINCON ([id number])[address] Basophils/100 WBC (Bld) 0.5 % Normal 0.0-2.0 [facility] Comment on above: Performed By: #### L [id number] ####Rn Building: BROOKE RINCON ([id number])[place] [address] [place] Eosinophils (Bld) [#/Vol] 0.2 10*3/uL Normal 0.0-0.5 [facility] Comment on above: Performed By: #### L [id number] ####Rn Building: BROOKE [id number])[facility])[address] [place] [address] [place] Eosinophils/100 WBC (Bld) 1.9 % Normal 0.0-6.0 [facility] Comment on above: Performed By: #### L [id number] ####Rn Building: BROOKE [id number])[facility])[address] [place] [address] Erythrocyte distribution width (RBC) [Ratio] 14.8 % Normal 11.5-15.0 [facility] Comment on above: Performed By: #### L [id number] ####Rn Building: BROOKE RINCON ([id number])[facility])[address] [place] [address] Hematocrit (Bld) [Volume fraction] 39.8 % Normal 35.0-47.0 [facility] Comment on above: Performed By: #### L [id number] ####Rn Building: BROOKE RINCON ([id number])[facility])[address] [place] [address] Hemoglobin (Bld) [Mass/Vol] 12.9 g/dL Normal 11.7-16.0 [facility] Comment on above: Performed By: #### L [id number] ####Rn Building: BROOKE RINCON ([id number])[facility] ([facility])[address] [place] [address] IMMATURE GRANS % 0.6 % Normal 0.0-2.0 [facility] Comment on above: Performed By: #### L [id number] ####Rn Building: BROOKE RINCON ([id number])[facility])[address] [place] [address] IMMATURE GRANS ABSOLUTE 0.1 10*3/uL High <0.1 [facility] Comment on above: Performed By: #### L [id number] ####Rn Building: BROOKE RINCON ([id number])[facility] ([facility])[address] [place] [address] Lymphocytes (Bld) [#/Vol] 1.7 10*3/uL Normal 1.0-4.3 [facility] Comment on above: Performed By: #### L [id number] ####Rn Building: BROOKE RINCON ([id number])[facility])[address] [place] [address] [place] Lymphocytes/100 WBC (Bld) 16.0 % Normal 15.0-45.0 [facility] Comment on above: Performed By: #### L [id number] ####Rn Building: BROOKE RINCON ([id number])[facility])[address] [place] [address] MCH (RBC) [Entitic mass] 30.1 pg Normal 26.0-34.0 [facility] Comment on above: Performed By: #### L [id number] ####Rn Building: BROOKE RINCON ([id number])[facility])[address] [place] [address] MCHC 32.4 % Normal 30.5-36.0 [facility] Comment on above: Performed By: #### L [id number] ####Rn Building: BROOKE RINCON ([id number])[facility])[address] [place] [address] MCV (RBC) [Entitic vol] 93.0 fL Normal 77.0-99.0 [facility] Comment on above: Performed By: #### L [id number] ####Rn Building: BROOKE RINCON ([id number])[facility] ([facility])[address] [place] [address] Monocytes (Bld) [#/Vol] 0.6 10*3/uL Normal 0.0-0.9 [facility] Comment on above: Performed By: #### L [id number] ####Rn Building: BROOKE RNICON ([id number])[facility])[address] [place] [address] Monocytes/100 WBC (Bld) 5.9 % Normal 5.0-13.0 [facility] Comment on above: Performed By: #### L [id number] ####Rn Building: BROOKE RINCON ([id number])[facility])[address] [place] [address] NEUTROPHILS ABSOLUTE 7.9 10*3/uL High 1.8-7.5 [facility] Comment on above: Performed By: #### L [id number] ####Rn Building: BROOKE RINCON ([id number])[facility] ([facility])[address] [place] [address] Neutrophils/100 WBC (Bld) 75.1 % Normal 38.0-82.0 [facility] Comment on above: Performed By: #### L [id number] ####Rn Building: BROOKE RINCON ([id number])[facility] ([facility])[address] [place] [address] NRBC 0.0 /100 WBCs Normal 0.0-2.0 [facility] Comment on above: Performed By: #### L [id number] ####Rn Building: BROOKE RINCON ([id number])[facility])[address] [place] [address] Platelet mean volume (Bld) [Entitic vol] 10.3 fL Normal 9.0-12.7 [facility] Comment on above: Performed By: #### L [id number] ####Rn Building: BROOKE RINCON ([id number])[facility] ([facility])[address] [place] [address] Platelets (Bld) [#/Vol] 389 10*3/uL Normal 140-440 [facility] Comment on above: Performed By: #### L [id number] ####Rn Building: BROOKE RINCON ([id number])[facility])[address] [place] [address] RBC (Bld) [#/Vol] 4.28 10*6/uL Normal 3.80-5.20 [facility] Comment on above: Performed By: #### L [id number] ####Rn Building: BROOKE RINCON ([id number])[facility])[address] [place] [address] WBC (Bld) [#/Vol] 10.6 10*3/uL Normal 3.6-10.7 [facility] Comment on above: Performed By: #### L [id number] ####Rn Building: BROOKE RINCON ([id number])[facility] ([facility])[address] [place] [address] ED Nursing Noteon 03-12-2025 ED Nursing Note This RN notified jarvis t pt needs US line. Normal [facility] ED Provider Noteon ED Provider Note Normal [facility] HIGH SENSITIVITY TROPONIN, S ERIAL BASELINEon 03-12-2025 TROPONIN HS SERIAL BASELINE 4 ng/L Normal <=14 [facility] Comment on above: Result Comment: In i ndividuals presenting with symptoms > 2h, a baseline troponin <= 5 ng/L suggests acutecardiac injury is unlikely and further serial testing is generally not indicated. Performed By: #### L AB15, [id number] ####Rn Building: BROOKE RINCON ([id number])[facility])[address] [place] [address] HIGH SENSITIVITY TROPONIN, S ERIAL, SECOND TESTon 03-12-2025 2H TROPONIN HS (SERIAL 2ND TROPONIN) 6 ng/L Normal <=14 [facility] Comment on above: Result Comment: Risi ng or falling troponin delta below 2 ng/L as compared to baseline value suggests thatacute cardiac injury is unlikely. Performed By: #### L [id number] ####Rn Building: BROOKE RINCON ([id number])[facility])[address] [place] [address] HIGH SENSITIVITY TROPONIN, S ERIAL, THIRD TESTon 03-12-2025 4H TROPONIN HS (SERIAL 3RD TROPONIN) 6 ng/L Normal <=14 [facility] Comment on above: Result Comment: 4h t roponin (3rd troponin) samples collected between 1h 40 min and 2h and 20 min of the 2h troponin collection time can be utilized to interpret delta troponins as per [employer]. Samples collected outside this timeframe need to be interpreted clinically.Rising or falling troponin delta below 2 ng/L as compared to 2h troponin value suggeststhat acute cardiac injury is unlikely. Performed By: #### L [id number] ####Rn Building: BROOKE RINCON ([id number])[facility])[address] [place] [address] No Panel Informationon 03-12 4h Troponin HS (Serial 3rd Troponin) 6 ng/L NINF - 14 ng/L [facility] Comment on above: 4h troponin (3rd tro ponin) samples collected between 1h 40 min and 2h and 20 min of the 2h troponin collection time can be utilized to interpret delta troponins as per [facility] algorithms. Samples collected outside this timeframe need to be interpreted clinically. Rising or falling troponin delta below 2 ng/L as compared to 2h troponin value suggests that acute cardiac injury is unlikely. Interpretation and review of laboratory results Normal [facility] 2h Troponin HS (Serial 2nd Troponin) 6 ng/L NINF - 14 ng/L [facility] Comment on above: Rising or falling tr oponin delta below 2 ng/L as compared to baseline value suggests that acute cardiac injury is unlikely. Interpretation and review of laboratory results Normal [facility] Interpretation and review of laboratory results Normal [facility] Troponin HS Serial Baseline 4 ng/L [facility] ng/L [facility] Comment on above: In individuals prese nting with symptoms > 2h, a baseline troponin <= 5 ng/L suggests acute cardiac injury is unlikely and further serial testing is generally not indicated. [facility] XR Chest Single viewon 03-12 No acute cardiopulmonary process. Report Dictated on Electronically Signed By: Celso Palacios MD Electronically Signed Date/Time: 03/12/2025 4:02 PM EDT [employer] Patient Name: HANNA NELSON : 1940 Exam Date/Time: 03/12/2025 15:48 Procedure: XR CHEST 1 VIEW Ordering Provider: BEATTY KASSIDY Reason For Exam: chest pain CHEST X-RAY AP CLINICAL INDICATION: Chest pain AP radiograph of the chest was obtained. COMPARISON: January 26, 2025 FINDINGS: The cardiac silhouette is within normal limits. No focal consolidation or opacification is seen within the lungs. No pleural effusion or pneumothorax is identified. Degenerative changes of the thoracic spine are noted. [facility] Celso Palacios MD - 03/12/2025 Patient Name: HANNA NELSON : 1940 Exam Date/Time: 03/12/2025 15:48 Procedure: XR CHEST 1 VIEW Ordering Provider: BEATTY KASSIDY Reason For Exam: chest pain CHEST X-RAY AP CLINICAL INDICATION: Chest pain AP radiograph of the chest was obtained. COMPARISON: January 26, 2025 FINDINGS: The cardiac silhouette is within normal limits. No focal consolidation or opacification is seen within the lungs. No pleural effusion or pneumothorax is identified. Degenerative changes of the thoracic spine are noted. IMPRESSION: No acute cardiopulmonary process. Report Dictated on Electronically Signed By: Celso Palacios MD Electronically Signed Date/Time: 03/12/2025 4:02 PM EDT [facility] Radiology Study observation (narrative) [employer] XR Chest Single viewOrdered By: Celso Palacios on 03-12-2025 [facility] Work Phone: 37on 03-09-2025 37 Normal [facility] [employer] [facility] No Panel Informationon 03-09 Jennifer Waldrop DPM 10:42 AM Debridement Wound/Incision 09/18/24 Diabetic Ulcer Foot Right Performed by: Jennifer Waldrop DPM Authorized by: Jennifer Waldrop DPM Consent Consent obtained? verbal Consent given by: patient Risks discussed? procedural risks discussed Time out called at 03/09/2025 10:40 AM Immediately prior to the procedure a time out was called and the performing provider verified the correct patient, procedure, equipment, technical support 1 software engineer, and site/side marked as required. Debridement Details Performed by: physician Debridement type: surgical Level of debridement: subcutaneous tissue Pain control: lidocaine 2% Pain control administration type: topical Pre-debridement measurements Length (cm): 1.2 Width (cm): 0.7 Depth (cm): 0.2 Surface Area (cm^2): 0.66 Post-debridement measurements Length (cm): 1.3 Width (cm): 0.8 Depth (cm): 0.4 Percent debrided: 100% Surface Area (cm^2): 0.82 Area Debrided (cm^2): 0.82 Volume (cm^3): 0.22 Tissue and other material debrided: subcutaneous tissue Devitalized tissue debrided: biofilm, callus, fibrin and slough Instrument(s) utilized: blade Bleeding: small Hemostasis obtained with: pressure Procedural pain (0-10): 0 Post-procedural pain: 0 Response to treatment: procedure was tolerated well [facility] Progress Noteon 03-09-2025 Progress Note [facility] 03-02-2025 37 [facility] No Panel Informationon 03-02 Jennifer Waldrop DPM 10:44 AM Debridement Wound/Incision 09/18/24 Diabetic Ulcer Foot Right Performed by: Jennifer Waldrop DPM Authorized by: Jennifer Waldrop DPM Consent Consent obtained? verbal Consent given by: patient Risks discussed? procedural risks discussed Time out called at 03/02/2025 10:43 AM Immediately prior to the procedure a time out was called and the performing provider verified the correct patient, procedure, equipment, technical support 1 software engineer, and site/side marked as required. Debridement Details Performed by: physician Debridement type: surgical Level of debridement: subcutaneous tissue Pain control: lidocaine 2% Pain control administration type: topical Pre-debridement measurements Length (cm): 1.3 Width (cm): 0.5 Depth (cm): 0.2 Surface Area (cm^2): 0.51 Post-debridement measurements Length (cm): 1.4 Width (cm): 0.6 Depth (cm): 0.4 Percent debrided: 100% Surface Area (cm^2): 0.66 Area Debrided (cm^2): 0.66 Volume (cm^3): 0.18 Tissue and other material debrided: subcutaneous tissue Devitalized tissue debrided: biofilm, callus, fibrin and slough Instrument(s) utilized: curette Bleeding: small Hemostasis obtained with: pressure Procedural pain (0-10): 0 Post-procedural pain: 0 Response to treatment: procedure was tolerated well [facility] Progress 03-02-2025 Progress Note [facility] 02-23-2025 29 Encounter addended b y: Liss Acevedo RN on: 02/23/2025 11:59 AM Actions taken: Order list changed, Diagnosis association updated [facility] 02-23-2025 37 [facility] No Panel Information02-23 Jennifer Waldrop DPM 11:02 AM Debridement Wound/Incision 09/18/24 Diabetic Ulcer Foot Right Performed by: Jennifer Waldrop DPM Authorized by: Jennifer Waldrop DPM Consent Consent obtained? verbal Consent given by: patient Risks discussed? procedural risks discussed Time out called at 02/23/2025 11:00 AM Immediately prior to the procedure a time out was called and the performing provider verified the correct patient, procedure, equipment, technical support 1 software engineer, and site/side marked as required. Debridement Details Performed by: physician Debridement type: surgical Level of debridement: subcutaneous tissue Pain control: lidocaine 2% Pain control administration type: topical Pre-debridement measurements Length (cm): 1.2 Width (cm): 0.5 Depth (cm): 0.2 Surface Area (cm^2): 0.47 Post-debridement measurements Length (cm): 1.3 Width (cm): 0.6 Depth (cm): 0.5 Percent debrided: 100% Surface Area (cm^2): 0.61 Area Debrided (cm^2): 0.61 Volume (cm^3): 0.2 Tissue and other material debrided: subcutaneous tissue Devitalized tissue debrided: biofilm, callus, fibrin and slough Instrument(s) utilized: curette Bleeding: small Hemostasis obtained with: pressure Procedural pain (0-10): 0 Post-procedural pain: 0 Response to treatment: procedure was tolerated well [facility] Progress Noteon 02-23-2025 Progress Note Normal [facility] Basic Metabolic Profile (BMP )on 02-08-2025 BUN/CRE 36.7 RATIO High 10-20 [facility] Comment on above: Order Comment: 304.2 Performed By: #### L 100.0500, L500.2500 #### [facility] [address] [place], [address] Calcium [Mass/Vol] 9.6 mg/dL Normal 7.6-11.0 [facility] Comment on above: Order Comment: 304.2 Performed By: #### L 100.0500, L500.2500 #### [facility] [address] [place], [address] Chloride [Moles/Vol] 104 mmol/L Normal 98-108 [facility] Comment on above: Order Comment: 304.2 Performed By: #### L 100.0500, L500.2500 #### [facility] [address] [place], [address] CO2 [Moles/Vol] 21.5 mmol/L Normal 21.0-32.0 [facility] Comment on above: Order Comment: 304.2 Performed By: #### L 100.0500, L500.2500 #### [facility] [address] [place], [address] Creatinine [Mass/Vol] 1.06 mg/dL Normal 0.70-1.20 [facility] Comment on above: Order Comment: 304.2 Performed By: #### L 100.0500, L500.2500 #### [facility] [address] [place], [address] GAP 15 Normal 5-15 [facility] Comment on above: Order Comment: 304.2 Performed By: #### L 100.0500, L500.2500 #### [facility] [address] [place], [address] GFR/1.73 sq M.predicted among non-blacks MDRD (S/P/Bld) [Vol rate/Area] 51 mL/min/{1.73_m2} Low >60 [facility] Comment on above: Order Comment: 304.2 Result Comment: mL/m in/1.73m2 CKD-EPI Creatinine Equation (2020) Performed By: #### L 100.0500, L500.2500 #### [facility] [address] [place], [address] Glucose [Mass/Vol] 100 mg/dL High 70-99 [facility] Comment on above: Order Comment: 304.2 Performed By: #### L 100.0500, L500.2500 #### [facility] [address] [place], [address] Potassium [Moles/Vol] 4.1 mmol/L Normal 3.3-5.1 [facility] Comment on above: Order Comment: 304.2 Performed By: #### L 100.0500, L500.2500 #### [facility] [address] [place], [address] Sodium [Moles/Vol] 141 mmol/L Normal 133-145 [facility] Comment on above: Order Comment: 304.2 Performed By: #### L 100.0500, L500.2500 #### [facility] [address] [place], [address] Urea nitrogen [Mass/Vol] 39 mg/dL High 4-19 [facility] Comment on above: Order Comment: 304.2 Performed By: #### L 100.0500, L500.2500 #### [facility] [address] [place], [address] CBC-Complete Blood Cnt No Di ffon 02-08-2025 Erythrocyte distribution width (RBC) [Ratio] 14.0 % Normal 11.6-14.6 [facility] Comment on above: Order Comment: 304.2 Performed By: #### L 100.0500, L500.2500 #### [facility] [address] [place], [address] Hematocrit (Bld) [Volume fraction] 36.5 % Low 37-47 [facility] Comment on above: Order Comment: 304.2 Performed By: #### L 100.0500, L500.2500 #### [facility] [address] [place], [address] Hemoglobin (Bld) [Mass/Vol] 11.3 g/dL Low 12.0-15.0 [facility] Comment on above: Order Comment: 304.2 Performed By: #### L 100.0500, L500.2500 #### [facility] [address] [place], [address] MCH (RBC) [Entitic mass] 29.6 pg Normal 27.0-32.0 [facility] Comment on above: Order Comment: 304.2 Performed By: #### L 100.0500, L500.2500 #### [facility] [address] [place], [address] MCHC (RBC) [Mass/Vol] 31.0 g/dL Low 32-36 [facility] Comment on above: Order Comment: 304.2 Performed By: #### L 100.0500, L500.2500 #### [facility] [address] [place], [address] MCV (RBC) [Entitic vol] 95.5 fL Normal 81-99 [facility] Comment on above: Order Comment: 304.2 Performed By: #### L 100.0500, L500.2500 #### [facility] [address] [place], [address] Platelet mean volume (Bld) [Entitic vol] 10.4 fL Normal 6.2-12.0 [facility] Comment on above: Order Comment: 304.2 Performed By: #### L 100.0500, L500.2500 #### [facility] [address] [place], [address] Platelets (Bld) [#/Vol] 370 10*3/uL Normal 150-450 [facility] Comment on above: Order Comment: 304.2 Performed By: #### L 100.0500, L500.2500 #### [facility] [address] [place], [address] RBC (Bld) [#/Vol] 3.82 10*6/uL Low 4.2-5.4 [facility] Comment on above: Order Comment: 304.2 Performed By: #### L 100.0500, L500.2500 #### [facility] [address] [place], [address] RDW SD 49.1 fl High 35.1-43.9 [facility] Comment on above: Order Comment: 304.2 Performed By: #### L 100.0500, L500.2500 #### [facility] [address] [place], [address] WBC (Bld) [#/Vol] 7.9 10*3/uL Normal 4.4-11.0 [facility] Comment on above: Order Comment: 304.2 Performed By: #### L 100.0500, L500.2500 #### [facility] [address] [place], [address] [id number] 02-04-2025 [id number] [facility] [id number] 02-02-2025 [id number] [facility] [id number] Being discharged to [facility] Family is aware. . [facility] [id number] MAR & Discharge med list transmitted to [facility] via [facility] per [facility]CC request. [id number] created in [facility] per TCC request. Facility notified via [facility]. Electronically signed by NATALIA Melvin [facility] [id number] [facility] BASIC METABOLIC PANELon 01-11 Anion gap [Moles/Vol] 8 mmol/L Normal 3-13 [facility] Comment on above: Performed By: #### L AB15 ####Rn Building: BROOKE RINCON ([id number])[facility])[address] [place] [address] [place] Calcium [Mass/Vol] 8.4 mg/dL Low 8.8-10.0 [facility] Comment on above: Performed By: #### L AB15 ####Rn Building: BROOKE RINCON ([id number])[facility] ([facility])[address] [place] [address] [place] Chloride [Moles/Vol] 109 mmol/L High 98-107 [facility] Comment on above: Performed By: #### L AB15 ####Rn Building: BROOKE RINCON ([id number])[facility])[address] [place] [address] CO2 [Moles/Vol] 23 mmol/L Normal 23-31 [facility] Comment on above: Performed By: #### L AB15 ####Rn Building: BROOKE RINCON ([id number])[facility])[address] [place] [address] Creatinine [Mass/Vol] 0.88 mg/dL Normal 0.57-1.11 [facility] Comment on above: Performed By: #### L AB15 ####Rn Building: BROOKE RINCON ([id number])[facility])[address] [place] [address] GLOMERULAR FILTRATION RATE ML/MIN/1.73 SQ M.PREDICTED 64.5 mL/min/1.73m*2 Normal >60.0 [facility] Comment on above: Result Comment: Calc ulation based on the Chronic Kidney Disease Epidemiology Collaboration (CKD-EPI) equation refit without adjustment for race Performed By: #### L AB15 ####Rn Building: BROOKE RINCON ([id number])[facility])[address] [place] [address] Glucose [Mass/Vol] 120 mg/dL High 82-115 [facility] Comment on above: Performed By: #### L AB15 ####Rn Building: BROOKE RINCON ([id number])[facility])[address] [place] [address] Potassium [Moles/Vol] 3.4 mmol/L Low 3.5-5.1 [facility] Comment on above: Result Comment: [facility] potassium values may be up to 0.5 mmol/L lower than serum values. Performed By: #### L AB15 ####Rn Building: BROOKE RINCON ([id number])[facility])[address] [place] [address] Sodium [Moles/Vol] 140 mmol/L Normal 136-145 [facility] Comment on above: Performed By: #### L AB15 ####Rn Building: BROOKE RINCON ([id number])[facility])[address] [place] [address] Urea nitrogen [Mass/Vol] 19 mg/dL Normal 9-23 [facility] Comment on above: Performed By: #### L AB15 ####Rn Building: BROOKE RINCON ([id number])[facility])[address] [place] [address] Basic metabolic 1998 panelon 02-02-2025 Anion gap [Moles/Vol] 8 mmol/L 3 - 13 mmol/L [facility] Calcium [Mass/Vol] 8.4 mg/dL Low 8.8 - 10. 0 mg/dL [facility] Chloride [Moles/Vol] 109 mmol/L High 98 - 10 7 mmol/L [facility] CO2 [Moles/Vol] 23 mmol/L 23 - 31 mmol/L [facility] Creatinine [Mass/Vol] 0.88 mg/dL 0.57 - 1.11 mg/dL [facility] GFR/1.73 sq M.predicted (S/P/Bld) [Vol rate/Area] 64.5 mL/min - PINF [facility] Comment on above: Calculation based on the Chronic Kidney Disease Epidemiology Collaboration (CKD-EPI) equation refit without adjustment for race Glucose [Mass/Vol] 120 mg/dL High 82 - 115 mg/dL [facility] Interpretation and review of laboratory results Abnormal [facility] Potassium [Moles/Vol] 3.4 mmol/L Low 3.5 - 5.1 mmol/L [facility] Comment on above: Plasma potassium ashley ues may be up to 0.5 mmol/L lower than serum values. Sodium [Moles/Vol] 140 mmol/L 136 - 145 mmol/L [facility] Urea nitrogen [Mass/Vol] 19 mg/dL 9 - 23 mg/dL [facility] CBC W Auto Differential pane l (Bld)on 02-02-2025 Basophils (Bld) [#/Vol] 0.1 10*3/uL 0.0 - 0.2 10*3/uL [facility] Basophils/100 WBC (Bld) 0.5 % 0.0 - 2.0 % [facility] Eosinophils (Bld) [#/Vol] 0.5 10*3/uL 0.0 - 0.5 10*3/uL [facility] Eosinophils/100 WBC (Bld) 4.5 % 0.0 - 6.0 % [facility] Erythrocyte distribution width (RBC) [Ratio] 14.3 % 11.5 - 15.0 % [facility] Hematocrit (Bld) [Volume fraction] 33.4 % Low 35.0 - 47.0 % [facility] Hemoglobin (Bld) [Mass/Vol] 10.8 g/dL Low 11.7 - 16.0 g/dL [facility] Immature granulocytes (Bld) [#/Vol] 0.2 10*3/uL High NINF - 0.1 10*3/uL [facility] Immature granulocytes/100 WBC (Bld) 2 % 0.0 - 2.0 % [facility] Interpretation and review of laboratory results Abnormal [facility] Lymphocytes (Bld) [#/Vol] 1.8 10*3/uL 1.0 - 4.3 10*3/uL [facility] Lymphocytes/100 WBC (Bld) 18.3 % 15.0 - 45.0 % [facility] MCH (RBC) [Entitic mass] 29.9 pg 26.0 - 34.0 pg [facility] MCHC (RBC) [Mass/Vol] 32.3 % 30.5 - 36.0 % [facility] MCV (RBC) [Entitic vol] 92.5 fL 77.0 - 99.0 fL [facility] Monocytes (Bld) [#/Vol] 0.9 10*3/uL 0.0 - 0.9 10*3/uL [facility] Monocytes/100 WBC (Bld) 9.3 % 5.0 - 13.0 % [facility] Neutrophils (Bld) [#/Vol] 6.5 10*3/uL 1.8 - 7.5 10*3/uL [facility] Neutrophils/100 WBC (Bld) 65.4 % 38.0 - 82.0 % [facility] Nucleated RBC/100 WBC (Bld) [Ratio] 0 % [facility] Platelet mean volume (Bld) [Entitic vol] 9.8 fL 9.0 - 12.7 fL [facility] Platelets (Bld) [#/Vol] 298 10*3/uL 140 - 440 10*3/uL [facility] RBC (Bld) [#/Vol] 3.61 10*6/uL Low 3.80 - 5.20 10*6/uL [facility] WBC (Bld) [#/Vol] 10 10*3/uL 3.6 - 10.7 10*3/uL [facility] CBC WITH AUTO DIFFERENTIALon 02-02-2025 Basophils (Bld) [#/Vol] 0.1 10*3/uL Normal 0.0-0.2 [facility] Comment on above: Performed By: #### L [id number] ####Rn Building: BROOKE RINCON ([id number])[facility])[address] [place] [address] Basophils/100 WBC (Bld) 0.5 % Normal 0.0-2.0 [facility] Comment on above: Performed By: #### L [id number] ####Rn Building: BROOKE RINCON ([id number])[facility])[address] [place] [address] Eosinophils (Bld) [#/Vol] 0.5 10*3/uL Normal 0.0-0.5 [facility] Comment on above: Performed By: #### L [id number] ####Rn Building: BROOKE RINCON ([id number])[facility])[address] [place] [address] Eosinophils/100 WBC (Bld) 4.5 % Normal 0.0-6.0 [facility] Comment on above: Performed By: #### L [id number] ####Rn Building: BROOKE RINCON ([id number])[facility])[address] [place] [address] Erythrocyte distribution width (RBC) [Ratio] 14.3 % Normal 11.5-15.0 [facility] Comment on above: Performed By: #### L [id number] ####Rn Building: BROOKE RINCON ([id number])[facility])[address] [place] [address] Hematocrit (Bld) [Volume fraction] 33.4 % Low 35.0-47.0 [facility] Comment on above: Performed By: #### L [id number] ####Rn Building: BROOKE RINCON ([id number])[facility])[address] [place] [address] Hemoglobin (Bld) [Mass/Vol] 10.8 g/dL Low 11.7-16.0 [facility] Comment on above: Performed By: #### L [id number] ####Rn Building: BROOKE RINCON ([id number])[facility])[address] [place] [address] IMMATURE GRANS % 2.0 % Normal 0.0-2.0 [facility] Comment on above: Performed By: #### L [id number] ####Rn Building: BROOKE RINCON ([id number])[facility])[address] [place] [address] IMMATURE GRANS ABSOLUTE 0.2 10*3/uL High <0.1 [facility] Comment on above: Performed By: #### L [id number] ####Rn Building: BROOKE RINCON ([id number])[facility])[address] [place] [address] Lymphocytes (Bld) [#/Vol] 1.8 10*3/uL Normal 1.0-4.3 [facility] Comment on above: Performed By: #### L [id number] ####Rn Building: BROOKE RINCON ([id number])[facility])[address] [place] [address] Lymphocytes/100 WBC (Bld) 18.3 % Normal 15.0-45.0 [facility] Comment on above: Performed By: #### L [id number] ####Rn Building: BROOKE RINCON ([id number])[facility])[address] [place] [address] MCH (RBC) [Entitic mass] 29.9 pg Normal 26.0-34.0 [facility] Comment on above: Performed By: #### L [id number] ####Rn Building: BROOKE RINCON ([id number])[facility])[address] [place] [address] MCHC 32.3 % Normal 30.5-36.0 [facility] Comment on above: Performed By: #### L [id number] ####Rn Building: BROOKE RINCON ([id number])[facility])[address] [place] [address] MCV (RBC) [Entitic vol] 92.5 fL Normal 77.0-99.0 [facility] Comment on above: Performed By: #### L [id number] ####Rn Building: BROOKE RINCON ([id number])[facility])[address] [place] [address] Monocytes (Bld) [#/Vol] 0.9 10*3/uL Normal 0.0-0.9 [facility] Comment on above: Performed By: #### L [id number] ####Rn Building: BROOKE RINCON ([id number])[facility])[address] [place] [address] Monocytes/100 WBC (Bld) 9.3 % Normal 5.0-13.0 [facility] Comment on above: Performed By: #### L [id number] ####Rn Building: BROOKE RINCON ([id number])[facility])[address] [place] [address] NEUTROPHILS ABSOLUTE 6.5 10*3/uL Normal 1.8-7.5 [facility] Comment on above: Performed By: #### L [id number] ####Rn Building: BROOKE RINCON ([id number])[facility])[address] [place] [address] Neutrophils/100 WBC (Bld) 65.4 % Normal 38.0-82.0 [facility] Comment on above: Performed By: #### L [id number] ####Rn Building: BROOKE RINCON ([id number])[facility])[address] [place] [address] NRBC 0.0 /100 WBCs Normal 0.0-2.0 [facility] Comment on above: Performed By: #### L [id number] ####Rn Building: BROOKE RINCON ([id number])[facility])[address] [place] [address] Platelet mean volume (Bld) [Entitic vol] 9.8 fL Normal 9.0-12.7 [facility] Comment on above: Performed By: #### L [id number] ####Rn Building: BROOKE RINCON ([id number])[facility])[address] [place] [address] Platelets (Bld) [#/Vol] 298 10*3/uL Normal 140-440 [facility] Comment on above: Performed By: #### L [id number] ####Rn Building: BROOKE RINCON ([id number])[facility])[address] [place] [address] RBC (Bld) [#/Vol] 3.61 10*6/uL Low 3.80-5.20 [facility] Comment on above: Performed By: #### L [id number] ####Rn Building: BROOKE RINCON ([id number])[facility])[address] [place] [address] WBC (Bld) [#/Vol] 10.0 10*3/uL Normal 3.6-10.7 [facility] Comment on above: Performed By: #### L [id number] ####Rn Building: BROOKE RINCON ([id number])[facility])[address] [place] [address] Laboratory - Chemistry and C hemistry - challengeon 02-02-2025 Glucose [Mass/Vol] 154 mg/dL High 70 - 100 mg/dL [facility] Glucose [Mass/Vol] 106 mg/dL High 70 - 100 mg/dL [facility] No Panel Informationon 02-02 Interpretation and review of laboratory results Abnormal [facility] Performed by: [facility], [address] [place] [address] CLIA ID: [id number] [facility] Interpretation and review of laboratory results Abnormal [facility] Performed by: [facility], [address] [place] [address] CLIA ID: [id number] [facility] Progress Noteon 02-02-2025 Progress Note Normal [facility] Progress Note Normal [facility] Progress Note Normal [facility] 30on 02-01-2025 30 Normal [facility] [id number] 02-01-2025 [id number] Plan is placement at discharge. Home care to sign off. Please re-consult if a home care need arises. Normal [facility] [id number] 02-01-2025 [id number] [facility] That [facility] facility of choice. Will discharge there when stable.. Normal [facility] Bacteria identified Anaer cx Nom (Unsp spec)Ordered By: Deepika Taylor on 02-01-2025 Interpretation and review of laboratory results Abnormal [facility] Laboratory - Chemistry and C hemistry - challengeon 02-01-2025 Glucose [Mass/Vol] 223 mg/dL High 70 - 100 mg/dL [facility] Glucose [Mass/Vol] 188 mg/dL High 70 - 100 mg/dL [facility] Glucose [Mass/Vol] 174 mg/dL High 70 - 100 mg/dL [facility] Glucose [Mass/Vol] 148 mg/dL High 70 - 100 mg/dL [facility] Laboratory - Microbiology an d Antimicrobial susceptibilityOrdered By: Deepika Taylor on 02-01-2025 Bacteria identified Anaer cx Nom (Unsp spec) Rare Bacteroides fragilis Abnormal [facility] No Panel Informationon 02-01 Interpretation and review of laboratory results Abnormal [facility] Performed by: [facility], [address] [place] [address] CLIA ID: [id number] [facility] Interpretation and review of laboratory results Abnormal [facility] Performed by: [facility], [address] [place] [address] [place] [address] CLIA ID: [id number] [facility] Interpretation and review of laboratory results Abnormal [facility] Performed by: [facility], [address] [place] [address] [place] [address] CLIA ID: [id number] [facility] Interpretation and review of laboratory results Abnormal [facility] Performed by: [facility], [address] [place] [address] [place] [address] CLIA ID: [id number] [facility] Progress Noteon 02-01-2025 Progress Note Normal [facility] 30on 01-31-2025 30 Normal [facility] 30 Normal [facility] [id number] 01-31-2025 [id number] Normal [facility] BASIC METABOLIC PANELon 06- Anion gap [Moles/Vol] 12 mmol/L Normal 3-13 [facility] Comment on above: Performed By: #### L [id number] ####Rn Building: BROOKE RINCON ([id number])[address] Calcium [Mass/Vol] 9.4 mg/dL Normal 8.8-10.0 [facility] Comment on above: Performed By: #### L AB15 ####Rn Building: BROOKE RINCON ([id number])[facility])[address] [place] [address] [place] Chloride [Moles/Vol] 107 mmol/L Normal 98-107 [facility] Comment on above: Performed By: #### L AB15 ####Rn Building: BROOKE RINCON ([id number])[address] CO2 [Moles/Vol] 20 mmol/L Low 23-31 [facility] Comment on above: Performed By: #### L AB15 ####Rn Building: BROOKE RINCON ([id number])[facility])[address] [place] [address] Creatinine [Mass/Vol] 1.04 mg/dL Normal 0.57-1.11 [facility] Comment on above: Performed By: #### L AB15 ####Rn Building: BROOKE RINCON ([id number])[facility])[address] [place] [address] [place] GLOMERULAR FILTRATION RATE ML/MIN/1.73 SQ M.PREDICTED 52.8 mL/min/1.73m*2 Low >60.0 [facility] Comment on above: Result Comment: Calc ulation based on the Chronic Kidney Disease Epidemiology Collaboration (CKD-EPI) equation refit without adjustment for race Performed By: #### L AB15 ####Rn Building: BROOKE RINCON ([id number])[facility] ([facility])[address] [place] [address] Glucose [Mass/Vol] 205 mg/dL High 82-115 [facility] Comment on above: Performed By: #### L AB15 ####Rn Building: BROOKE RINCON ([id number])[facility])[address] [place] [address] Potassium [Moles/Vol] 3.7 mmol/L Normal 3.5-5.1 [facility] Comment on above: Result Comment: [facility] potassium values may be up to 0.5 mmol/L lower than serum values. Performed By: #### L AB15 ####Rn Building: BROOKE RINCON ([id number])[facility])[address] [place] [address] [place] Sodium [Moles/Vol] 139 mmol/L Normal 136-145 [facility] Comment on above: Performed By: #### L AB15 ####Rn Building: BROOKE RINCON ([id number])[facility])[address] [place] [address] [place] Urea nitrogen [Mass/Vol] 27 mg/dL High 9-23 [facility] Comment on above: Performed By: #### L AB15 ####Rn Building: BROOKE [id number])[facility] ([facility])[address] [place] [address] Bacteria identified Anaer cx Nom (Unsp spec)Ordered By: Kenya Baig on 01-31-2025 Interpretation and review of laboratory results Abnormal [facility] Bacteria identified Cx Nom ( Bld)on 01-31-2025 Interpretation and review of laboratory results Normal [facility] Blood Collection Sit e: Right Hand [facility] Interpretation and review of laboratory results Normal [facility] Blood Collection Sit e: Right Antecubital [facility] Basic metabolic 1998 panelon 01-31-2025 Anion gap [Moles/Vol] 12 mmol/L 3 - 13 mmol/L [facility] Calcium [Mass/Vol] 9.4 mg/dL 8.8 - 10. 0 mg/dL [facility] Chloride [Moles/Vol] 107 mmol/L 98 - 10 7 mmol/L [facility] CO2 [Moles/Vol] 20 mmol/L Low 23 - 31 mmol/L [facility] Creatinine [Mass/Vol] 1.04 mg/dL 0.57 - 1.11 mg/dL [facility] GFR/1.73 sq M.predicted (S/P/Bld) [Vol rate/Area] 52.8 mL/min Low - PINF [facility] Comment on above: Calculation based on the Chronic Kidney Disease Epidemiology Collaboration (CKD-EPI) equation refit without adjustment for race Glucose [Mass/Vol] 205 mg/dL High 82 - 115 mg/dL [facility] Interpretation and review of laboratory results Abnormal [facility] Potassium [Moles/Vol] 3.7 mmol/L 3.5 - 5.1 mmol/L [facility] Comment on above: Plasma potassium ashley ues may be up to 0.5 mmol/L lower than serum values. Sodium [Moles/Vol] 139 mmol/L 136 - 145 mmol/L [facility] Urea nitrogen [Mass/Vol] 27 mg/dL High 9 - 23 mg/dL [facility] CBC W Auto Differential pane l (Bld)Ordered By: Jorge Borden on 01-31-2025 Basophils (Bld) [#/Vol] 0 10*3/uL 0.0 - 0.2 10*3/uL [facility] Basophils/100 WBC (Bld) 0.5 % 0.0 - 2.0 % [facility] Eosinophils (Bld) [#/Vol] 0.4 10*3/uL 0.0 - 0.5 10*3/uL [facility] Eosinophils/100 WBC (Bld) 4.3 % 0.0 - 6.0 % [facility] Erythrocyte distribution width (RBC) [Ratio] 14.1 % 11.5 - 15.0 % [facility] Hematocrit (Bld) [Volume fraction] 34.7 % Low 35.0 - 47.0 % [facility] Hemoglobin (Bld) [Mass/Vol] 11.4 g/dL Low 11.7 - 16.0 g/dL [facility] Immature granulocytes (Bld) [#/Vol] 0.1 10*3/uL High NINF - 0.1 10*3/uL [facility] Immature granulocytes/100 WBC (Bld) 1.2 % 0.0 - 2.0 % [facility] Interpretation and review of laboratory results Abnormal [facility] Lymphocytes (Bld) [#/Vol] 1.2 10*3/uL 1.0 - 4.3 10*3/uL [facility] Lymphocytes/100 WBC (Bld) 14.8 % Low 15.0 - 45.0 % [facility] MCH (RBC) [Entitic mass] 30.2 pg 26.0 - 34.0 pg [facility] MCHC (RBC) [Mass/Vol] 32.9 % 30.5 - 36.0 % [facility] MCV (RBC) [Entitic vol] 91.8 fL 77.0 - 99.0 fL [facility] Monocytes (Bld) [#/Vol] 0.6 10*3/uL 0.0 - 0.9 10*3/uL [facility] Monocytes/100 WBC (Bld) 7.2 % 5.0 - 13.0 % [facility] Neutrophils (Bld) [#/Vol] 6 10*3/uL 1.8 - 7.5 10*3/uL [facility] Neutrophils/100 WBC (Bld) 72 % 38.0 - 82.0 % [facility] Nucleated RBC/100 WBC (Bld) [Ratio] 0 % [facility] Platelet mean volume (Bld) [Entitic vol] 10.2 fL 9.0 - 12.7 fL [facility] Platelets (Bld) [#/Vol] 283 10*3/uL 140 - 440 10*3/uL [facility] RBC (Bld) [#/Vol] 3.78 10*6/uL Low 3.80 - 5.20 10*6/uL [facility] WBC (Bld) [#/Vol] 8.3 10*3/uL 3.6 - 10.7 10*3/uL [facility] CBC WITH AUTO DIFFERENTIALon 01-31-2025 Basophils (Bld) [#/Vol] 0.0 10*3/uL Normal 0.0-0.2 [facility] Comment on above: Performed By: #### L [id number] ####Rn Building: BROOKE RINCON ([id number])[facility])[address] [place] [address] Basophils/100 WBC (Bld) 0.5 % Normal 0.0-2.0 [facility] Comment on above: Performed By: #### L [id number] ####Rn Building: BROOKE RINCON ([id number])[facility])[address] [place] [address] Eosinophils (Bld) [#/Vol] 0.4 10*3/uL Normal 0.0-0.5 [facility] Comment on above: Performed By: #### L [id number] ####Rn Building: BROOKE RINCON ([id number])[facility])[address] [place] [address] Eosinophils/100 WBC (Bld) 4.3 % Normal 0.0-6.0 [facility] Comment on above: Performed By: #### L [id number] ####Rn Building: BROOKE RINCON ([id number])[facility])[address] [place] [address] Erythrocyte distribution width (RBC) [Ratio] 14.1 % Normal 11.5-15.0 [facility] Comment on above: Performed By: #### L [id number] ####Rn Building: BROOKE RINCON ([id number])[facility])[address] [place] [address] Hematocrit (Bld) [Volume fraction] 34.7 % Low 35.0-47.0 [facility] Comment on above: Performed By: #### L [id number] ####Rn Building: BROOKE RINCON ([id number])[facility])[address] [place] [address] Hemoglobin (Bld) [Mass/Vol] 11.4 g/dL Low 11.7-16.0 [facility] Comment on above: Performed By: #### L [id number] ####Rn Building: BROOKE RINCON ([id number])[facility])[address] [place] [address] IMMATURE GRANS % 1.2 % Normal 0.0-2.0 [facility] Comment on above: Performed By: #### L [id number] ####Rn Building: BROOKE RINCON ([id number])[facility])[address] [place] [address] IMMATURE GRANS ABSOLUTE 0.1 10*3/uL High <0.1 [facility] Comment on above: Performed By: #### L [id number] ####Rn Building: BROOKE RINCON ([id number])[facility])[address] [place] [address] Lymphocytes (Bld) [#/Vol] 1.2 10*3/uL Normal 1.0-4.3 [facility] Comment on above: Performed By: #### L [id number] ####Rn Building: BROOKE RINCON ([id number])[facility])[address] [place] [address] Lymphocytes/100 WBC (Bld) 14.8 % Low 15.0-45.0 [facility] Comment on above: Performed By: #### L [id number] ####Rn Building: BROOKE RINCON ([id number])[facility])[address] [place] [address] MCH (RBC) [Entitic mass] 30.2 pg Normal 26.0-34.0 [facility] Comment on above: Performed By: #### L [id number] ####Rn Building: BROOKE RINCON ([id number])[facility])[address] [place] [address] MCHC 32.9 % Normal 30.5-36.0 [facility] Comment on above: Performed By: #### L [id number] ####Rn Building: BROOKE RINCON ([id number])[facility])[address] [place] [address] MCV (RBC) [Entitic vol] 91.8 fL Normal 77.0-99.0 [facility] Comment on above: Performed By: #### L [id number] ####Rn Building: BROOKE RINCON ([id number])[facility])[address] [place] [address] Monocytes (Bld) [#/Vol] 0.6 10*3/uL Normal 0.0-0.9 [facility] Comment on above: Performed By: #### L [id number] ####Rn Building: BROOKE RINCON ([id number])[facility])[address] [place] [address] Monocytes/100 WBC (Bld) 7.2 % Normal 5.0-13.0 [facility] Comment on above: Performed By: #### L [id number] ####Rn Building: BROOKE RINCON ([id number])[facility])[address] [place] [address] NEUTROPHILS ABSOLUTE 6.0 10*3/uL Normal 1.8-7.5 [facility] Comment on above: Performed By: #### L [id number] ####Rn Building: BROOKE RINCON ([id number])[facility])[address] [place] [address] Neutrophils/100 WBC (Bld) 72.0 % Normal 38.0-82.0 [facility] Comment on above: Performed By: #### L [id number] ####Rn Building: BROOKE [id number])[facility] ([facility])[address] [place] [address] NRBC 0.0 /100 WBCs Normal 0.0-2.0 [facility] Comment on above: Performed By: #### L [id number] ####Rn Building: BROOKE RINCON ([id number])[facility] ([facility])[address] [place] [address] Platelet mean volume (Bld) [Entitic vol] 10.2 fL Normal 9.0-12.7 [facility] Comment on above: Performed By: #### L [id number] ####Rn Building: BROOKE RINCON ([id number])[facility] ([facility])[address] [place] [address] Platelets (Bld) [#/Vol] 283 10*3/uL Normal 140-440 [facility] Comment on above: Performed By: #### L [id number] ####Rn Building: BROOKE RINCON ([id number])[facility] ([facility])[address] [place] [address] RBC (Bld) [#/Vol] 3.78 10*6/uL Low 3.80-5.20 [facility] Comment on above: Performed By: #### L [id number] ####Rn Building: BROOKE RINCON ([id number])[facility] ([facility])[address] [place] [address] WBC (Bld) [#/Vol] 8.3 10*3/uL Normal 3.6-10.7 [facility] Comment on above: Performed By: #### L [id number] ####Rn Building: BROOKE RINCON ([id number])[facility] ([facility])[address] [place] [address] Laboratory - Chemistry and C hemistry - challengeon 01-31-2025 Glucose [Mass/Vol] 284 mg/dL High 70 - 100 mg/dL [facility] Glucose [Mass/Vol] 147 mg/dL High 70 - 100 mg/dL [facility] Glucose [Mass/Vol] 200 mg/dL High 70 - 100 mg/dL [facility] Glucose [Mass/Vol] 118 mg/dL High 70 - 100 mg/dL [facility] Laboratory - Microbiology an d Antimicrobial susceptibilityOrdered By: Kenya Baig on 01-31-2025 Bacteria identified Anaer cx Nom (Unsp spec) Few Bacteroides fragilis Abnormal [facility] Laboratory - Microbiology an d Antimicrobial susceptibilityon 01-31-2025 Bacteria identified Cx Nom (Bld) No growth at 5 days [facility] Bacteria identified Cx Nom (Bld) No growth at 5 days [facility] No Panel Informationon 01-31 Interpretation and review of laboratory results Abnormal [facility] Performed by: [address], [facility] [address] CLIA ID: [id number] [facility] Interpretation and review of laboratory results Abnormal [facility] Performed by: [facility], [address] [place] [address] CLIA ID: [id number] [facility] Interpretation and review of laboratory results Abnormal [facility] Performed by: [address] [address] CLIA ID: [id number] [facility] Interpretation and review of laboratory results Abnormal [facility] Performed by: [address] [address] CLIA ID: [id number] [facility] Progress Noteon 01-31-2025 Progress Note Normal [facility] Progress Note Normal [facility] 30on 01-30-2025 30 Normal [facility] 30 Normal [facility] Bacteria identified Aer cx N om (Unsp spec)Ordered By: Martita Joyce on 01-30-2025 Gram Stain Result Rare Polymorphonucle ar leukocytes per low power field Abnormal [facility] Gram Stain Result Positive Abnormal [facility] Interpretation and review of laboratory results Abnormal [facility] Bacteria identified Aer cx N om (Unsp spec)on 01-30-2025 Gram Stain Result Few Polymorphonuclea r leukocytes per low power field [facility] Gram Stain Result No organisms seen [facility] Interpretation and review of laboratory results Abnormal [facility] PBP2A Negative [facility] Laboratory - Chemistry and C hemistry - challengeon 01-30-2025 Glucose [Mass/Vol] 190 mg/dL High 70 - 100 mg/dL [facility] Glucose [Mass/Vol] 168 mg/dL High 70 - 100 mg/dL [facility] Glucose [Mass/Vol] 182 mg/dL High 70 - 100 mg/dL [facility] Glucose [Mass/Vol] 139 mg/dL High 70 - 100 mg/dL [facility] Laboratory - Microbiology an d Antimicrobial susceptibilityOrdered By: Martita Joyce on 01-30-2025 Bacteria identified Aer cx Nom (Unsp spec) Moderate skin fabio present [facility] Bacteria identified Aer cx Nom (Unsp spec) Few Staphylococcus aureus Abnormal [facility] Bacteria identified Aer cx Nom (Unsp spec) Few Streptococcus pyogenes Abnormal [facility] Comment on above: Susceptibility testi ng not performed. Beta-hemolytic streptococci are universally susceptible to beta-lactam antibiotics. If patient is beta-lactam allergic, providers should call the [facility] ([phone]) within 3 days to request susceptibility testing. Laboratory - Microbiology an d Antimicrobial susceptibilityon 01-30-2025 Bacteria identified Aer cx Nom (Unsp spec) Rare skin fabio present [facility] Bacteria identified Aer cx Nom (Unsp spec) Rare Staphylococcus aureus Abnormal [facility] No Panel Informationon 01-30 Interpretation and review of laboratory results Abnormal [facility] Performed by: [address] [address] CLIA ID: [id number] [facility] Interpretation and review of laboratory results Abnormal [facility] Performed by: [address] [address] CLIA ID: [id number] [facility] Interpretation and review of laboratory results Abnormal [facility] Performed by: [address] [address] CLIA ID: [id number] [facility] Interpretation and review of laboratory results Abnormal [facility] Performed by: [address] [address] CLIA ID: [id number] [facility] Progress Noteon 01-30-2025 Progress Note Normal [facility] 30on 01-29-2025 30 Normal [facility] 30 Normal [facility] [id number] 01-29-2025 [id number] Normal [facility] [id number] 01-29-2025 [id number] Spoke with pt about SNF and [facility]. She states she is going home with [facility] BASIC METABOLIC PANELon 01-11 Anion gap [Moles/Vol] 10 mmol/L Normal 3-13 [facility] Comment on above: Performed By: #### L AB15 ####Rn Building: BROOKE RINCON ([id number])[facility])[address] [place] [address] Calcium [Mass/Vol] 9.0 mg/dL Normal 8.8-10.0 [facility] Comment on above: Performed By: #### L AB15 ####Rn Building: BROOKE RINCON ([id number])[facility])[address] [place] [address] Chloride [Moles/Vol] 108 mmol/L High 98-107 [facility] Comment on above: Performed By: #### L AB15 ####Rn Building: BROOKE RINCON ([id number])[facility])[address] [place] [address] CO2 [Moles/Vol] 18 mmol/L Low 23-31 [facility] Comment on above: Performed By: #### L AB15 ####Rn Building: BROOKE RINCON ([id number])[facility])[address] [place] [address] Creatinine [Mass/Vol] 1.16 mg/dL High 0.57-1.11 [facility] Comment on above: Performed By: #### L AB15 ####Rn Building: BROOKE RINCON ([id number])[facility])[address] [place] [address] GLOMERULAR FILTRATION RATE ML/MIN/1.73 SQ M.PREDICTED 46.3 mL/min/1.73m*2 Low >60.0 [facility] Comment on above: Result Comment: Calc ulation based on the Chronic Kidney Disease Epidemiology Collaboration (CKD-EPI) equation refit without adjustment for race Performed By: #### L AB15 ####Rn Building: BROOKE RINCON ([id number])[address] Glucose [Mass/Vol] 212 mg/dL High 82-115 [facility] Comment on above: Performed By: #### L AB15 ####Rn Building: BROOKE RINCON ([id number])[facility])[address] [place] [address] Potassium [Moles/Vol] 3.8 mmol/L Normal 3.5-5.1 [facility] Comment on above: Result Comment: [facility] potassium values may be up to 0.5 mmol/L lower than serum values. Performed By: #### L AB15 ####Rn Building: BROOKE RINCON ([id number])[address] Sodium [Moles/Vol] 136 mmol/L Normal 136-145 [facility] Comment on above: Performed By: #### L AB15 ####Rn Building: BROOKE RINCON ([id number])[address] Urea nitrogen [Mass/Vol] 35 mg/dL High 9-23 [facility] Comment on above: Performed By: #### L AB15 ####Rn Building: BROOKE RINCON ([id number])[address] Basic metabolic 1998 panelon 01-29-2025 Anion gap [Moles/Vol] 10 mmol/L 3 - 13 mmol/L [facility] Calcium [Mass/Vol] 9 mg/dL 8.8 - 10. 0 mg/dL [facility] Chloride [Moles/Vol] 108 mmol/L High 98 - 10 7 mmol/L [facility] CO2 [Moles/Vol] 18 mmol/L Low 23 - 31 mmol/L [facility] Creatinine [Mass/Vol] 1.16 mg/dL High 0.57 - 1.11 mg/dL [facility] GFR/1.73 sq M.predicted (S/P/Bld) [Vol rate/Area] 46.3 mL/min Low - PINF [facility] Comment on above: Calculation based on the Chronic Kidney Disease Epidemiology Collaboration (CKD-EPI) equation refit without adjustment for race Glucose [Mass/Vol] 212 mg/dL High 82 - 115 mg/dL [facility] Interpretation and review of laboratory results Abnormal [facility] Potassium [Moles/Vol] 3.8 mmol/L 3.5 - 5.1 mmol/L [facility] Comment on above: Plasma potassium ashley ues may be up to 0.5 mmol/L lower than serum values. Sodium [Moles/Vol] 136 mmol/L 136 - 145 mmol/L [facility] Urea nitrogen [Mass/Vol] 35 mg/dL High 9 - 23 mg/dL [facility] CBC (HEMOGRAM)on 01-29-2025 Erythrocyte distribution width (RBC) [Ratio] 14.6 % Normal 11.5-15.0 [facility] Comment on above: Performed By: #### L [id number] ####Rn Building: BROOKE RINCON ([id number])[address] Hematocrit (Bld) [Volume fraction] 29.2 % Low 35.0-47.0 [facility] Comment on above: Performed By: #### L [id number] ####Rn Building: BROOKE [id number])[address] Hemoglobin (Bld) [Mass/Vol] 9.5 g/dL Low 11.7-16.0 [facility] Comment on above: Performed By: #### L [id number] ####Rn Building: BROOKE RINCON ([id number])[address] MCH (RBC) [Entitic mass] 30.4 pg Normal 26.0-34.0 [facility] Comment on above: Performed By: #### L [id number] ####Rn Building: BROOKE [id number])[facility])[address] [place] [address] MCHC 32.5 % Normal 30.5-36.0 [facility] Comment on above: Performed By: #### L [id number] ####Rn Building: BROOKE RINCON ([id number])[facility])[address] [place] [address] MCV (RBC) [Entitic vol] 93.6 fL Normal 77.0-99.0 [facility] Comment on above: Performed By: #### L [id number] ####Rn Building: BROOKE RINCON ([id number])[facility])[address] [place] [address] Platelet mean volume (Bld) [Entitic vol] 10.9 fL Normal 9.0-12.7 [facility] Comment on above: Performed By: #### L [id number] ####Rn Building: BROOKE RINCON ([id number])[facility] ([facility])[address] [place] [address] Platelets (Bld) [#/Vol] 154 10*3/uL Normal 140-440 [facility] Comment on above: Performed By: #### L [id number] ####Rn Building: BROOKE RINCON ([id number])[facility])[address] [place] [address] RBC (Bld) [#/Vol] 3.12 10*6/uL Low 3.80-5.20 [facility] Comment on above: Performed By: #### L [id number] ####Rn Building: BROOKE RINCON ([id number])[facility] ([facility])[address] [place] [address] WBC (Bld) [#/Vol] 11.7 10*3/uL High 3.6-10.7 [facility] Comment on above: Performed By: #### L [id number] ####Rn Building: BROOKE RINCON ([id number])[facility])[address] [place] [address] CBC panel Auto (Bld)on 06-20 -2025 Erythrocyte distribution width (RBC) [Ratio] 14.6 % 11.5 - 15.0 % [facility] Hematocrit (Bld) [Volume fraction] 29.2 % Low 35.0 - 47.0 % [facility] Hemoglobin (Bld) [Mass/Vol] 9.5 g/dL Low 11.7 - 16.0 g/dL [facility] Interpretation and review of laboratory results Abnormal [facility] MCH (RBC) [Entitic mass] 30.4 pg 26.0 - 34.0 pg [facility] MCHC (RBC) [Mass/Vol] 32.5 % 30.5 - 36.0 % [facility] MCV (RBC) [Entitic vol] 93.6 fL 77.0 - 99.0 fL [facility] Platelet mean volume (Bld) [Entitic vol] 10.9 fL 9.0 - 12.7 fL [facility] Platelets (Bld) [#/Vol] 154 10*3/uL 140 - 440 10*3/uL [facility] RBC (Bld) [#/Vol] 3.12 10*6/uL Low 3.80 - 5.20 10*6/uL [facility] WBC (Bld) [#/Vol] 11.7 10*3/uL High 3.6 - 10.7 10*3/uL [facility] Laboratory - Chemistry and C hemistry - challengeon 01-29-2025 Glucose [Mass/Vol] 209 mg/dL High 70 - 100 mg/dL [facility] Glucose [Mass/Vol] 174 mg/dL High 70 - 100 mg/dL [facility] Glucose [Mass/Vol] 231 mg/dL High 70 - 100 mg/dL [facility] Glucose [Mass/Vol] 190 mg/dL High 70 - 100 mg/dL [facility] Laboratory - Drug toxicology on 01-29-2025 Vancomycin trough [Mass/Vol] 9.9 ug/mL [facility] No Panel Informationon 01-29 Interpretation and review of laboratory results Abnormal [facility] Performed by: [place] [address] CLIA ID: [id number] [facility] Interpretation and review of laboratory results Abnormal [facility] Performed by: [place] [id number] CLIA ID: [id number] [facility] Interpretation and review of laboratory results Abnormal [facility] Performed by: [facility], [address] [place] [address] CLIA ID: [id number] [facility] Interpretation and review of laboratory results Abnormal [facility] Performed by: [facility], [address] [place] [address] CLIA ID: [id number] [facility] Progress Noteon 01-29-2025 Progress Note Normal [facility] Progress Note Normal [facility] Progress Note Vancomycin therapy h as been discontinued by Dr. Rox Covington on 01/29/25. Thank you for the consult. Pharmacy signing off for vancomycin dosing. Alex Mena [facility], PharmD. Date: 01/29/25 Time: 11:53 AM Normal [facility] Progress Note Normal [facility] VANCOMYCIN, AUC TIMED DOSING on 01-29-2025 VANCOMYCIN, AUC 9.9 ug/mL Normal [facility] Comment on above: Result Comment: JULIOE R COMMENTS:Please draw random level at least >2 hours after the end of the last vancomycin infusion, or 30-minutes before next infusion.Toxicity is seen at concentrations >80-100 ug/mLTherapeutic (Peak) range: 20-40Therapeutic (Trough) range: 5-10 Performed By: #### L [id number] ####Rn Building: BROOKE RINCON ([id number])[facility] ([facility])[address] [place] [address] Vancomycin trough [Mass/Vol] on 01-29-2025 Toxicity is seen at concentrations >80-100 ug/mL Therapeutic (Peak) range: 20-40 Therapeutic (Trough) range: 5-10 [facility] 30on 01-28-2025 30 Normal [facility] BASIC METABOLIC PANELon 01-10 Anion gap [Moles/Vol] 10 mmol/L Normal 3-13 [facility] Comment on above: Performed By: #### L AB15 ####Rn Building: BROOKE RINCON ([id number])[facility] ([facility])[address] [place] [address] Calcium [Mass/Vol] 9.1 mg/dL Normal 8.8-10.0 [facility] Comment on above: Performed By: #### L AB15 ####Rn Building: BROOKE RINCON ([id number])[facility] ([facility])[address] [place] [address] Chloride [Moles/Vol] 105 mmol/L Normal 98-107 [facility] Comment on above: Performed By: #### L AB15 ####Rn Building: BROOKE RINCON ([id number])[facility] ([facility])[address] [place] [address] CO2 [Moles/Vol] 15 mmol/L Low 23-31 [facility] Comment on above: Performed By: #### L AB15 ####Rn Building: BROOKE RINCON ([id number])[facility] ([facility])[address] [place] [address] Creatinine [Mass/Vol] 1.47 mg/dL High 0.57-1.11 [facility] Comment on above: Performed By: #### L AB15 ####Rn Building: BROOKE RINCON ([id number])[facility] ([facility])[address] [place] [address] GLOMERULAR FILTRATION RATE ML/MIN/1.73 SQ M.PREDICTED 34.8 mL/min/1.73m*2 Low >60.0 [facility] Comment on above: Result Comment: Calc ulation based on the Chronic Kidney Disease Epidemiology Collaboration (CKD-EPI) equation refit without adjustment for race Performed By: #### L AB15 ####Rn Building: BROOKE RINCON ([id number])[facility] ([facility])[address] [place] [address] [place] Glucose [Mass/Vol] 210 mg/dL High 82-115 [facility] Comment on above: Performed By: #### L AB15 ####Rn Building: BROOKE RINCON ([id number])[facility] ([facility])[address] [place] [address] Potassium [Moles/Vol] 4.3 mmol/L Normal 3.5-5.1 [facility] Comment on above: Result Comment: [facility] potassium values may be up to 0.5 mmol/L lower than serum values. Performed By: #### L AB15 ####Rn Building: BROOKE RINCON ([id number])[facility] ([facility])[address] [place] [address] Sodium [Moles/Vol] 130 mmol/L Low 136-145 [facility] Comment on above: Performed By: #### L AB15 ####Rn Building: BROOKE RINCON ([id number])[facility] ([facility])[address] [place] [address] Urea nitrogen [Mass/Vol] 31 mg/dL High 9-23 [facility] Comment on above: Performed By: #### L AB15 ####Rn Building: BROOKE RINCON ([id number])[facility] [place] [address] Basic metabolic 1998 panelon 01-28-2025 Anion gap [Moles/Vol] 10 mmol/L 3 - 13 mmol/L [facility] Calcium [Mass/Vol] 9.1 mg/dL 8.8 - 10. 0 mg/dL [facility] Chloride [Moles/Vol] 105 mmol/L 98 - 10 7 mmol/L [facility] CO2 [Moles/Vol] 15 mmol/L Low 23 - 31 mmol/L [facility] Creatinine [Mass/Vol] 1.47 mg/dL High 0.57 - 1.11 mg/dL [facility] GFR/1.73 sq M.predicted (S/P/Bld) [Vol rate/Area] 34.8 mL/min Low - PINF [facility] Comment on above: Calculation based on the Chronic Kidney Disease Epidemiology Collaboration (CKD-EPI) equation refit without adjustment for race Glucose [Mass/Vol] 210 mg/dL High 82 - 115 mg/dL [facility] Interpretation and review of laboratory results Abnormal [facility] Potassium [Moles/Vol] 4.3 mmol/L 3.5 - 5.1 mmol/L [facility] Comment on above: Plasma potassium ashley ues may be up to 0.5 mmol/L lower than serum values. Sodium [Moles/Vol] 130 mmol/L Low 136 - 145 mmol/L [facility] Urea nitrogen [Mass/Vol] 31 mg/dL High 9 - 23 mg/dL [facility] CBC (HEMOGRAM)on 01-28-2025 Erythrocyte distribution width (RBC) [Ratio] 14.8 % Normal 11.5-15.0 [facility] Comment on above: Performed By: #### L [id number] ####Rn Building: BROOKE RINCON ([id number])[facility])[address] [place] [address] Hematocrit (Bld) [Volume fraction] 33.3 % Low 35.0-47.0 [facility] Comment on above: Performed By: #### L [id number] ####Rn Building: BROOKE RINCON ([id number])[address] Hemoglobin (Bld) [Mass/Vol] 10.6 g/dL Low 11.7-16.0 [facility] Comment on above: Performed By: #### L [id number] ####Rn Building: BROOKE RINCON ([id number])[address] MCH (RBC) [Entitic mass] 30.1 pg Normal 26.0-34.0 [facility] Comment on above: Performed By: #### L [id number] ####Rn Building: BROOKE RINCON ([id number])[address] MCHC 31.8 % Normal 30.5-36.0 [facility] Comment on above: Performed By: #### L [id number] ####Rn Building: BROOKE RINCON ([id number])[address] MCV (RBC) [Entitic vol] 94.6 fL Normal 77.0-99.0 [facility] Comment on above: Performed By: #### L [id number] ####Rn Building: BROOKE RINCON ([id number])[facility] ([facility])[address] [place] [address] Platelet mean volume (Bld) [Entitic vol] 11.2 fL Normal 9.0-12.7 [facility] Comment on above: Performed By: #### L [id number] ####Rn Building: BROOKE RINCON ([id number])[facility] ([facility])[address] [place] [address] Platelets (Bld) [#/Vol] 163 10*3/uL Normal 140-440 [facility] Comment on above: Performed By: #### L [id number] ####Rn Building: BROOKE RINCON ([id number])[facility] ([facility])[address] [place] [address] RBC (Bld) [#/Vol] 3.52 10*6/uL Low 3.80-5.20 [facility] Comment on above: Performed By: #### L [id number] ####Rn Building: BOROKE RINCON ([id number])[facility] ([facility])[address] [place] [address] WBC (Bld) [#/Vol] 17.3 10*3/uL High 3.6-10.7 [facility] Comment on above: Performed By: #### L [id number] ####Rn Building: BROOKE RINCON ([id number])[facility] ([facility])[address] [place] [address] CBC panel Auto (Bld)on 01-28 Erythrocyte distribution width (RBC) [Ratio] 14.8 % 11.5 - 15.0 % [facility] Hematocrit (Bld) [Volume fraction] 33.3 % Low 35.0 - 47.0 % [facility] Hemoglobin (Bld) [Mass/Vol] 10.6 g/dL Low 11.7 - 16.0 g/dL [facility] Interpretation and review of laboratory results Abnormal [facility] MCH (RBC) [Entitic mass] 30.1 pg 26.0 - 34.0 pg [facility] MCHC (RBC) [Mass/Vol] 31.8 % 30.5 - 36.0 % [facility] MCV (RBC) [Entitic vol] 94.6 fL 77.0 - 99.0 fL [facility] Platelet mean volume (Bld) [Entitic vol] 11.2 fL 9.0 - 12.7 fL [facility] Platelets (Bld) [#/Vol] 163 10*3/uL 140 - 440 10*3/uL [facility] RBC (Bld) [#/Vol] 3.52 10*6/uL Low 3.80 - 5.20 10*6/uL [facility] WBC (Bld) [#/Vol] 17.3 10*3/uL High 3.6 - 10.7 10*3/uL [facility] Laboratory - Chemistry and C hemistry - challengeon 01-28-2025 Glucose [Mass/Vol] 331 mg/dL High 70 - 100 mg/dL [facility] Glucose [Mass/Vol] 269 mg/dL High 70 - 100 mg/dL [facility] [employer] Glucose [Mass/Vol] 242 mg/dL High 70 - 100 mg/dL [facility] Glucose [Mass/Vol] 269 mg/dL High 70 - 100 mg/dL [facility] MR Hip - right WO and W cont rast Quin 01-28-2025 Impression: 1. Mild, nonspecific-nonenhancing fluid and edema within the right iliacus muscle. Tiny amount of nonspecific free fluid in the lower right hemipelvis. 2. No evidence of joint effusion, periprosthetic edema, or soft tissue fluid collection/abscess about the right hip. Report Dictated on Electronically Signed By: Celso Palacios MD Electronically Signed Date/Time: 01/28/2025 10:04 AM [facility] RADIOLOGY SYSTEM Patient Name: HANNA NELSON : 1940 Exam Date/Time: 01/27/2025 17:56 Procedure: MR HIP RIGHT W AND WO IV CONTRAST Ordering Provider: GOMEZ EMILY Reason For Exam: Soft tissue infection suspected, hip, xray done Examination: MRI Right hip Clinical Indication: Hip pain. Infection. Comparison: None Findings: Multiplanar multisequence MRI images were obtained through the pelvis and right hip with and without intravenous or intra-articular contrast. Right Hip: No acute fracture, dislocation, or avascular necrosis of the right hip. No evidence of joint effusion. No soft tissue fluid collection or abscess about the right hip. Within the limitations of the intramedullary nail susceptibility artifact, there is no evidence of periprosthetic edema or fracture. The gluteus minimus and medius tendons are intact without evidence of tear or tendinosis. The hamstring tendons are intact without evidence of tear or tendinosis. No evidence of iliopsoas or trochanteric bursitis. No intramuscular edema or muscle tear. No evidence of ischiofemoral impingement. Left hip and Pelvis: Mild, nonspecific-nonenhancing fluid and edema within the right iliacus muscle. Tiny amount of nonspecific free fluid in the lower right hemipelvis. Atrophy and fatty infiltration of the bilateral gluteal muscles. No fracture, diastases/dislocation, or avascular necrosis of the left hip or pelvis. Suboptimally evaluated, partial-thickness articular sided gluteus medius tear. The left hip joint is intact without evidence of effusion. No retracted tendon or muscle tear. No intramuscular edema. No evidence of bursitis. The sacroiliac joints are grossly intact without evidence of erosion, widening, or effusion. No lymphadenopathy in the visualized pelvis. [facility] RADIOLOGY SYSTEM Celso Palacios MD - 01/28/2025 [facility] Name: [facility] 1940 [id number] Exam Date/Time: 01/27/2025 17:56 Procedure: MR HIP RIGHT W AND WO IV CONTRAST Ordering Provider: GOMEZ EMILY Reason For Exam: Soft tissue infection suspected, hip, xray done Examination: MRI Right hip Clinical Indication: Hip pain. Infection. Comparison: None Findings: Multiplanar multisequence MRI images were obtained through the pelvis and right hip with and without intravenous or intra-articular contrast. Right Hip: No acute fracture, dislocation, or avascular necrosis of the right hip. No evidence of joint effusion. No soft tissue fluid collection or abscess about the right hip. Within the limitations of the intramedullary nail susceptibility artifact, there is no evidence of periprosthetic edema or fracture. The gluteus minimus and medius tendons are intact without evidence of tear or tendinosis. The hamstring tendons are intact without evidence of tear or tendinosis. No evidence of iliopsoas or trochanteric bursitis. No intramuscular edema or muscle tear. No evidence of ischiofemoral impingement. Left hip and Pelvis: Mild, nonspecific-nonenhancing fluid and edema within the right iliacus muscle. Tiny amount of nonspecific free fluid in the lower right hemipelvis. Atrophy and fatty infiltration of the bilateral gluteal muscles. No fracture, diastases/dislocation, or avascular necrosis of the left hip or pelvis. Suboptimally evaluated, partial-thickness articular sided gluteus medius tear. The left hip joint is intact without evidence of effusion. No retracted tendon or muscle tear. No intramuscular edema. No evidence of bursitis. The sacroiliac joints are grossly intact without evidence of erosion, widening, or effusion. No lymphadenopathy in the visualized pelvis. IMPRESSION: Impression: 1. Mild, nonspecific-nonenhancing fluid and edema within the right iliacus muscle. Tiny amount of nonspecific free fluid in the lower right hemipelvis. 2. No evidence of joint effusion, periprosthetic edema, or soft tissue fluid collection/abscess about the right hip. Report Dictated on Electronically Signed By: Celso Palacios MD Electronically Signed Date/Time: 01/28/2025 10:04 AM EDT [facility] No Panel Informationon 01-28 Interpretation and review of laboratory results Abnormal [facility] [employer] Performed by: [place] [address] CLIA ID: [id number] [facility] Interpretation and review of laboratory results Abnormal [facility] Performed by: [address] [address] CLIA ID: [id number] [facility] Interpretation and review of laboratory results Abnormal [facility] Performed by: [address] [address] CLIA ID: [id number] [facility] Interpretation and review of laboratory results Abnormal [facility] Performed by: [address] [address] CLIA ID: [id number] [facility] Progress Noteon 06-19-2025 Progress Note Normal [facility] Progress Note Normal [facility] Progress Note Normal [facility] Progress Note Normal [facility] Progress Note Normal [facility] 30on 01-27-2025 30 Normal [facility] 30 Normal [facility] [id number] 01-27-2025 [id number] Normal [facility] BASIC METABOLIC PANELon 01-10 Anion gap [Moles/Vol] 8 mmol/L Normal 3-13 [facility] Comment on above: Performed By: #### L AB15 ####Rn Building: BROOKE RINCON ([id number])[facility])[address] [place] [address] Calcium [Mass/Vol] 8.7 mg/dL Low 8.8-10.0 [facility] Comment on above: Performed By: #### L AB15 ####Rn Building: BROOKE RINCON ([id number])[facility])[address] [place] [address] Chloride [Moles/Vol] 106 mmol/L Normal 98-107 [facility] Comment on above: Performed By: #### L AB15 ####Rn Building: BROOKE RINCON ([id number])[facility])[address] [place] [address] [place] CO2 [Moles/Vol] 18 mmol/L Low 23-31 [facility] Comment on above: Performed By: #### L AB15 ####Rn Building: BROOKE RINCON ([id number])[facility])[address] [place] [address] [place] Creatinine [Mass/Vol] 1.25 mg/dL High 0.57-1.11 [facility] Comment on above: Performed By: #### L AB15 ####Rn Building: BROOKE RINCON ([id number])[facility])[address] [place] [address] [place] GLOMERULAR FILTRATION RATE ML/MIN/1.73 SQ M.PREDICTED 42.3 mL/min/1.73m*2 Low >60.0 [facility] Comment on above: Result Comment: Calc ulation based on the Chronic Kidney Disease Epidemiology Collaboration (CKD-EPI) equation refit without adjustment for race Performed By: #### L AB15 ####Rn Building: BROOKE RINCON ([id number])[facility])[address] [place] [address] Glucose [Mass/Vol] 136 mg/dL High 82-115 [facility] Comment on above: Performed By: #### L AB15 ####Rn Building: BROOKE RINCON ([id number])[facility])[address] [place] [address] Potassium [Moles/Vol] 4.2 mmol/L Normal 3.5-5.1 [facility] Comment on above: Result Comment: [facility] potassium values may be up to 0.5 mmol/L lower than serum values. Performed By: #### L AB15 ####Rn Building: BROOKE RINCON ([id number])[facility])[address] [place] [address] Sodium [Moles/Vol] 132 mmol/L Low 136-145 [facility] Comment on above: Performed By: #### L AB15 ####Rn Building: BROOKE RINCON ([id number])[facility])[address] [place] [address] Urea nitrogen [Mass/Vol] 36 mg/dL High 9-23 [facility] Comment on above: Performed By: #### L AB15 ####Rn Building: BROOKE RINCON ([id number])[facility])[address] [place] [address] Bacteria identified Cx Nom ( U)on 01-27-2025 Interpretation and review of laboratory results Normal [facility] Basic metabolic 1998 panelon 01-27-2025 Anion gap [Moles/Vol] 8 mmol/L 3 - 13 mmol/L [facility] Calcium [Mass/Vol] 8.7 mg/dL Low 8.8 - 10. 0 mg/dL [facility] Chloride [Moles/Vol] 106 mmol/L 98 - 10 7 mmol/L [facility] [employer] CO2 [Moles/Vol] 18 mmol/L Low 23 - 31 mmol/L [facility] [employer] Creatinine [Mass/Vol] 1.25 mg/dL High 0.57 - 1.11 mg/dL [facility] GFR/1.73 sq M.predicted (S/P/Bld) [Vol rate/Area] 42.3 mL/min Low - PINF [facility] Comment on above: Calculation based on the Chronic Kidney Disease Epidemiology Collaboration (CKD-EPI) equation refit without adjustment for race Glucose [Mass/Vol] 136 mg/dL High 82 - 115 mg/dL [facility] Interpretation and review of laboratory results Abnormal [facility] Potassium [Moles/Vol] 4.2 mmol/L 3.5 - 5.1 mmol/L [facility] Comment on above: Plasma potassium ashley ues may be up to 0.5 mmol/L lower than serum values. Sodium [Moles/Vol] 132 mmol/L Low 136 - 145 mmol/L [facility] [employer] Urea nitrogen [Mass/Vol] 36 mg/dL High 9 - 23 mg/dL [facility] CBC W Auto Differential pane l (Bld)Ordered By: Elias Blanchard on 01-27-2025 Basophils (Bld) [#/Vol] 0.1 10*3/uL 0.0 - 0.2 10*3/uL [facility] Basophils/100 WBC (Bld) 0.3 % 0.0 - 2.0 % [facility] Eosinophils (Bld) [#/Vol] 0 10*3/uL 0.0 - 0.5 10*3/uL [facility] [employer] Eosinophils/100 WBC (Bld) 0.2 % 0.0 - 6.0 % [facility] Erythrocyte distribution width (RBC) [Ratio] 14.7 % 11.5 - 15.0 % [facility] Hematocrit (Bld) [Volume fraction] 31.5 % Low 35.0 - 47.0 % [facility] Hemoglobin (Bld) [Mass/Vol] 10.1 g/dL Low 11.7 - 16.0 g/dL [facility] Immature granulocytes (Bld) [#/Vol] 0.2 10*3/uL High NINF - 0.1 10*3/uL [facility] [employer] Immature granulocytes/100 WBC (Bld) 1.1 % 0.0 - 2.0 % [facility] Interpretation and review of laboratory results Abnormal [facility] Lymphocytes (Bld) [#/Vol] 0.6 10*3/uL Low 1.0 - 4.3 10*3/uL [facility] Lymphocytes/100 WBC (Bld) 2.8 % Low 15.0 - 45.0 % [facility] MCH (RBC) [Entitic mass] 30.2 pg 26.0 - 34.0 pg [facility] MCHC (RBC) [Mass/Vol] 32.1 % 30.5 - 36.0 % [facility] MCV (RBC) [Entitic vol] 94.3 fL 77.0 - 99.0 fL [facility] Monocytes (Bld) [#/Vol] 1 10*3/uL High 0.0 - 0.9 10*3/uL [facility] Monocytes/100 WBC (Bld) 5 % 5.0 - 13.0 % [facility] Neutrophils (Bld) [#/Vol] 17.6 10*3/uL High 1.8 - 7.5 10*3/uL [facility] Neutrophils/100 WBC (Bld) 90.6 % High 38.0 - 82.0 % [facility] Nucleated RBC/100 WBC (Bld) [Ratio] 0 % [facility] Platelet mean volume (Bld) [Entitic vol] 10.9 fL 9.0 - 12.7 fL [facility] Platelets (Bld) [#/Vol] 165 10*3/uL 140 - 440 10*3/uL [facility] RBC (Bld) [#/Vol] 3.34 10*6/uL Low 3.80 - 5.20 10*6/uL [facility] WBC (Bld) [#/Vol] 19.4 10*3/uL High 3.6 - 10.7 10*3/uL [facility] CBC WITH AUTO DIFFERENTIALon 01-27-2025 Basophils (Bld) [#/Vol] 0.1 10*3/uL Normal 0.0-0.2 [facility] Comment on above: Performed By: #### L [id number] ####Rn Building: BROOKE RINCON ([id number])[place] [address] [place] Basophils/100 WBC (Bld) 0.3 % Normal 0.0-2.0 [facility] Comment on above: Performed By: #### L [id number] ####Rn Building: BROOKE RINCON ([id number])[facility])[address] [place] [address] Eosinophils (Bld) [#/Vol] 0.0 10*3/uL Normal 0.0-0.5 [facility] Comment on above: Performed By: #### L [id number] ####Rn Building: BROOKE RINCON ([id number])[facility])[address] [place] [address] Eosinophils/100 WBC (Bld) 0.2 % Normal 0.0-6.0 [facility] Comment on above: Performed By: #### L [id number] ####Rn Building: BROOKE RINCON ([id number])[facility])[address] [place] [address] Erythrocyte distribution width (RBC) [Ratio] 14.7 % Normal 11.5-15.0 [facility] Comment on above: Performed By: #### L [id number] ####Rn Building: BROOKE RINCON ([id number])[facility])[address] [place] [address] Hematocrit (Bld) [Volume fraction] 31.5 % Low 35.0-47.0 [facility] Comment on above: Performed By: #### L [id number] ####Rn Building: BROOKE RINCON ([id number])[facility])[address] [place] [address] Hemoglobin (Bld) [Mass/Vol] 10.1 g/dL Low 11.7-16.0 [facility] Comment on above: Performed By: #### L [id number] ####Rn Building: RBOOKE RINCON ([id number])[facility])[address] [place] [address] IMMATURE GRANS % 1.1 % Normal 0.0-2.0 [facility] Comment on above: Performed By: #### L [id number] ####Rn Building: BROOKE RINCON ([id number])[address] IMMATURE GRANS ABSOLUTE 0.2 10*3/uL High <0.1 [facility] Comment on above: Performed By: #### L [id number] ####Rn Building: BROOKE RINCON ([id number])[facility])[address] [place] [address] Lymphocytes (Bld) [#/Vol] 0.6 10*3/uL Low 1.0-4.3 [facility] Comment on above: Performed By: #### L [id number] ####Rn Building: BROOKE RINCON ([id number])[address] Lymphocytes/100 WBC (Bld) 2.8 % Low 15.0-45.0 [facility] Comment on above: Performed By: #### L [id number] ####Rn Building: BROOKE RINCON ([id number])[address] MCH (RBC) [Entitic mass] 30.2 pg Normal 26.0-34.0 [facility] Comment on above: Performed By: #### L [id number] ####Rn Building: BROOKE RINCON ([id number])[address] MCHC 32.1 % Normal 30.5-36.0 [facility] [facility] Comment on above: Performed By: #### L [id number] ####Rn Building: BROOKE RINCON ([id number])[address] MCV (RBC) [Entitic vol] 94.3 fL Normal 77.0-99.0 [facility] Comment on above: Performed By: #### L [id number] ####Rn Building: BROOKE RINCON ([id number])[facility] ([facility])[address] [place] [address] Monocytes (Bld) [#/Vol] 1.0 10*3/uL High 0.0-0.9 [facility] Comment on above: Performed By: #### L [id number] ####Rn Building: BROOKE RINCON ([id number])[facility] ([facility])[address] [place] [address] Monocytes/100 WBC (Bld) 5.0 % Normal 5.0-13.0 [facility] Comment on above: Performed By: #### L [id number] ####Rn Building: BROOKE RINCON ([id number])[facility] ([facility])[address] [place] [address] NEUTROPHILS ABSOLUTE 17.6 10*3/uL High 1.8-7.5 [facility] Comment on above: Performed By: #### L [id number] ####Rn Building: BROOKE RINCON ([id number])[facility] ([facility])[address] [place] [address] Neutrophils/100 WBC (Bld) 90.6 % High 38.0-82.0 [facility] Comment on above: Performed By: #### L [id number] ####Rn Building: BROOKE RINCON ([id number])[facility] ([facility])[address] [place] [address] NRBC 0.0 /100 WBCs Normal 0.0-2.0 [facility] Comment on above: Performed By: #### L [id number] ####Rn Building: BROOKE RINCON ([id number])[facility] ([facility])[address] [place] [address] Platelet mean volume (Bld) [Entitic vol] 10.9 fL Normal 9.0-12.7 [facility] Comment on above: Performed By: #### L [id number] ####Rn Building: BROOKE RINCON ([id number])[facility] ([facility])[address] [place] [address] [place] Platelets (Bld) [#/Vol] 165 10*3/uL Normal 140-440 [facility] Comment on above: Performed By: #### L [id number] ####Rn Building: BROOKE RINCON ([id number])[facility] ([facility])[address] [place] [address] RBC (Bld) [#/Vol] 3.34 10*6/uL Low 3.80-5.20 [facility] Comment on above: Performed By: #### L [id number] ####Rn Building: BROOKE RINCON ([id number])[facility] ([facility])[address] [place] [address] WBC (Bld) [#/Vol] 19.4 10*3/uL High 3.6-10.7 [facility] Comment on above: Performed By: #### L [id number] ####Rn Building: BROOKE RINCON ([id number])[facility] ([facility])[address] [place] [address] Consulton 01-27-2025 Consult Normal [facility] Laboratory - Chemistry and C hemistry - challengeon 01-27-2025 Glucose [Mass/Vol] 283 mg/dL High 70 - 100 mg/dL [facility] Glucose [Mass/Vol] 264 mg/dL High 70 - 100 mg/dL [facility] Glucose [Mass/Vol] 262 mg/dL High 70 - 100 mg/dL [facility] Glucose [Mass/Vol] 244 mg/dL High 70 - 100 mg/dL [facility] Glucose [Mass/Vol] 292 mg/dL High 70 - 100 mg/dL [facility] Laboratory - Drug toxicology on 01-27-2025 Vancomycin trough [Mass/Vol] 11.6 ug/mL [facility] Laboratory - Microbiology an d Antimicrobial susceptibilityon 01-27-2025 Bacteria identified Cx Nom (U) Normal urogenital fabio present [facility] MR Foot - right WO and W con trast Quin 01-27-2025 Impression: 1. Sequela of severe Charcot arthropathy. 2. Mild soft tissue swelling and edema about the mid and forefoot, especially dorsally; correlate with low-grade cellulitis. No organized fluid collection or abscess. 3. No osteomyelitis. Report Dictated on Electronically Signed By: Celso Palacios MD Electronically Signed Date/Time: 01/27/2025 7:58 AM EDT [facility] Patient Name: HANNA NELSON : 1940 Exam Date/Time: 01/26/2025 16:32 Procedure: MR FOOT RIGHT W AND WO IV CONTRAST Ordering Provider: CRAWFORD SHELDON Reason For Exam: MRI right foot and up to right ankle to evaluate extent of right midfoot abscess Examination: MR FOOT RIGHT W AND WO IV CONTRAST Technique: Multiplanar multisequence MRI images were obtained through the right foot pre and post administration of intravenous gadolinium contrast. Clinical Indication: Pain. Abscess. Osteomyelitis. Comparison: Correlation with foot radiographs January 26, 2025 Findings: Sequela of severe Charcot arthropathy, including pes planus deformity, partial fusion of the anterior subtalar, and complete fusion of the talonavicular, Chopart, and navicular bones. Severe first through fifth TMT osteoarthritis with complete loss of the joint space and marginal osteophytosis. No abnormal bone marrow signal intensity suggest osteomyelitis. No joint effusion. Mild soft tissue swelling and edema about the mid and forefoot, especially dorsally; correlate with low-grade cellulitis. No organized fluid collection or abscess. Complete atrophy and fatty infiltration of the intrinsic foot muscles. No flexor or extensor tenosynovitis. [facility] Celso Palacios MD - 01/27/2025 Patient Name: HANNA NELSON : 1940 Exam Date/Time: 01/26/2025 16:32 Procedure: MR FOOT RIGHT W AND WO IV CONTRAST Ordering Provider: CRAWFORD SHELDON Reason For Exam: MRI right foot and up to right ankle to evaluate extent of right midfoot abscess Examination: MR FOOT RIGHT W AND WO IV CONTRAST Technique: Multiplanar multisequence MRI images were obtained through the right foot pre and post administration of intravenous gadolinium contrast. Clinical Indication: Pain. Abscess. Osteomyelitis. Comparison: Correlation with foot radiographs January 26, 2025 Findings: Sequela of severe Charcot arthropathy, including pes planus deformity, partial fusion of the anterior subtalar, and complete fusion of the talonavicular, Chopart, and navicular bones. Severe first through fifth TMT osteoarthritis with complete loss of the joint space and marginal osteophytosis. No abnormal bone marrow signal intensity suggest osteomyelitis. No joint effusion. Mild soft tissue swelling and edema about the mid and forefoot, especially dorsally; correlate with low-grade cellulitis. No organized fluid collection or abscess. Complete atrophy and fatty infiltration of the intrinsic foot muscles. No flexor or extensor tenosynovitis. IMPRESSION: Impression: 1. Sequela of severe Charcot arthropathy. 2. Mild soft tissue swelling and edema about the mid and forefoot, especially dorsally; correlate with low-grade cellulitis. No organized fluid collection or abscess. 3. No osteomyelitis. Report Dictated on Electronically Signed By: Celso Palacios MD Electronically Signed Date/Time: 01/27/2025 7:58 AM EDT [facility] MR Foot - right WO and W con trast IVOrdered By: Celso Palacios on 01-27-2025 [employer] Work Phone: MR Hip - right WO and W cont rast Quin 01-27-2025 Radiology Study observation (narrative) [employer] No Panel Informationon 01-27 Interpretation and review of laboratory results Abnormal [facility] [employer] Performed by: [place] [address] CLIA ID: [id number] [facility] [employer] [facility] [employer] Interpretation and review of laboratory results Abnormal [facility] [employer] Performed by: [address] [address] CLIA ID: [id number] [facility] [employer] [facility] Interpretation and review of laboratory results Abnormal [facility] [employer] Performed by: [address] [address] CLIA ID: [id number] [facility] [employer] [facility] Interpretation and review of laboratory results Abnormal [facility] [employer] Performed by: [address] [address] CLIA ID: [id number] [facility] [employer] [facility] Interpretation and review of laboratory results Abnormal [facility] Performed by: [facility], [address] [place] [address] CLIA ID: [id number] [facility] Progress Noteon 01-27-2025 Progress Note Normal [facility] Progress Note Normal [facility] Progress Note Normal [facility] Progress Note Normal [facility] Progress Note Normal [facility] VANCOMYCIN, AUC TIMED DOSING on 01-27-2025 VANCOMYCIN, AUC 11.6 ug/mL Normal [facility] Comment on above: Result Comment: ORDE R COMMENTS:Please draw random level at least >2 hours after the end of the last vancomycin infusion, or 30-minutes before next infusion.Toxicity is seen at concentrations >80-100 ug/mLTherapeutic (Peak) range: 20-40Therapeutic (Trough) range: 5-10 Performed By: #### L [id number] ####Rn Building: BROOKE RINCON ([id number])[facility] ([facility])[address] [place] [address] Vancomycin trough [Mass/Vol] on 01-27-2025 Toxicity is seen at concentrations >80-100 ug/mL Therapeutic (Peak) range: 20-40 Therapeutic (Trough) range: 5-10 [facility] XR FEMUR 2+ VW RIGHTon 01-27 XR FEMUR 2+ VW RIGHT Normal [facility] XR Femur - right 2 Viewson 0 01-27-2025 1. Remote right intertrochanteric hip fracture status post malick and pin placement. 2. Mild edematous changes about the knee. Report Dictated on Electronically Signed By: Willi Soriano MD Electronically Signed Date/Time: 01/27/2025 3:35 PM [facility] Patient Name: HANNA NELSON : 1940 Exam Date/Time: 01/27/2025 13:40 Procedure: XR FEMUR 2+ VW RIGHT Ordering Provider: GOMEZ EMILY Reason For Exam: WOUND CLINICAL INFORMATION: Right lower extremity pain and swelling. Lower extremity abscess. AP and lateral views of the right femur are provided. FINDINGS: The patient is status post prior intertrochanteric hip fracture. Intramedullary malick spans the length of the right femur. A large screw affixes the right femoral neck. The right femur is in near-anatomic alignment. There is no acute fracture or dislocation. Moderate degenerative changes are noted about the right hip. The knee is mildly edematous. [facility] Willi Soriano MD - 01/27/2025 [facility] Name[facility] 1940 [id number] Exam Date/Time: 01/27/2025 13:40 Procedure: XR FEMUR 2+ VW RIGHT Ordering Provider: GOMEZ EMILY Reason For Exam: WOUND CLINICAL INFORMATION: Right lower extremity pain and swelling. Lower extremity abscess. AP and lateral views of the right femur are provided. FINDINGS: The patient is status post prior intertrochanteric hip fracture. Intramedullary malick spans the length of the right femur. A large screw affixes the right femoral neck. The right femur is in near-anatomic alignment. There is no acute fracture or dislocation. Moderate degenerative changes are noted about the right hip. The knee is mildly edematous. IMPRESSION: 1. Remote right intertrochanteric hip fracture status post malick and pin placement. 2. Mild edematous changes about the knee. Report Dictated on Electronically Signed By: Willi Soriano MD Electronically Signed Date/Time: 01/27/2025 3:35 PM EDT [facility] Radiology Study observation (narrative) [facility] [employer] XR Femur - right 2 ViewsOrde red By: Willi Soriano on 01-27-2025 [facility] [employer] Work Phone: [phone] 01-26-2025 [phone] Copy of DPOA found i n electronic record naming sonHi as [phone] Normal [facility] [id number] Pt came to ER with c /o generalized illness. BP, BR and BS are all up. Started on IV antibiotics for skin infection. Needs a vascular US. Wants to go home, will follow for needs... Normal [facility] ABO and Rh group Confirm Nom (Bld)on 01-26-2025 ABO group Nom (Bld) A [facility] D Ag Ql (RBC) Positive [facility] BLOOD CULTUREon 01-26-2025 Bacteria identified Cx Nom (Bld) Normal [facility] Comment on above: Performed By: #### L [id number] ####Rn Building: BROOKE RINCON ([id number])[facility] ([facility])[address] [place] [address] Bacteria identified Cx Nom (Bld) Normal [facility] Comment on above: Performed By: #### L [id number] ####Rn Building: BROOKE RINCON ([id number])[facility] ([facility])[address] [place] [address] BLOOD TYPE AND SCREEN GELon 01-26-2025 ABO GROUPING A Normal [facility] Comment on above: Performed By: #### L [id number] ####Rn Building: BROOKE RINCON ([id number])[facility] ([facility])[address] [place] [address] RH TYPE IN BLOOD Positive Normal [facility] Comment on above: Performed By: #### L [id number] ####Rn Building: BROOKE RINCON ([id number])[facility] ([facility])[address] [place] [address] Blood type and Crossmatch pa corin (Bld)on 01-26-2025 ABO group Nom (Bld) A [facility] Blood group antibody screen GEL Ql Negative [facility] D Ag Ql (RBC) Positive [facility] C-REACTIVE PROTEINon 025 CRP [Mass/Vol] 95.4 mg/L High <5.0 [facility] Comment on above: Performed By: #### L [id number], [id number] ####Rn Building: BROOKE RINCON ([id number])[facility] RODOLFO GARCIA ([facility])[address] CBC W Auto Differential pane l (Bld)Ordered By: Brooke Serna on 01-26-2025 Basophils (Bld) [#/Vol] 0 10*3/uL 0.0 - 0.2 10*3/uL [facility] Basophils/100 WBC (Bld) 0.2 % 0.0 - 2.0 % [facility] Eosinophils (Bld) [#/Vol] 0 10*3/uL 0.0 - 0.5 10*3/uL [facility] Eosinophils/100 WBC (Bld) 0 % 0.0 - 6.0 % [facility] Erythrocyte distribution width (RBC) [Ratio] 14.6 % 11.5 - 15.0 % [facility] Hematocrit (Bld) [Volume fraction] 37.3 % 35.0 - 47.0 % [facility] Hemoglobin (Bld) [Mass/Vol] 11.4 g/dL Low 11.7 - 16.0 g/dL [facility] Immature granulocytes (Bld) [#/Vol] 0.1 10*3/uL High NINF - 0.1 10*3/uL [facility] Immature granulocytes/100 WBC (Bld) 0.7 % 0.0 - 2.0 % [facility] Interpretation and review of laboratory results Abnormal [facility] Lymphocytes (Bld) [#/Vol] 0.7 10*3/uL Low 1.0 - 4.3 10*3/uL [facility] Lymphocytes/100 WBC (Bld) 3.6 % Low 15.0 - 45.0 % [facility] MCH (RBC) [Entitic mass] 30.3 pg 26.0 - 34.0 pg [facility] MCHC (RBC) [Mass/Vol] 30.6 % 30.5 - 36.0 % [facility] MCV (RBC) [Entitic vol] 99.2 fL High 77.0 - 99.0 fL [facility] Monocytes (Bld) [#/Vol] 0.8 10*3/uL 0.0 - 0.9 10*3/uL [facility] Monocytes/100 WBC (Bld) 4.1 % Low 5.0 - 13.0 % [facility] Neutrophils (Bld) [#/Vol] 16.9 10*3/uL High 1.8 - 7.5 10*3/uL [facility] Neutrophils/100 WBC (Bld) 91.4 % High 38.0 - 82.0 % [facility] Nucleated RBC/100 WBC (Bld) [Ratio] 0 % [facility] Platelet mean volume (Bld) [Entitic vol] 11.2 fL 9.0 - 12.7 fL [facility] Platelets (Bld) [#/Vol] 110 10*3/uL Low 140 - 440 10*3/uL [facility] RBC (Bld) [#/Vol] 3.76 10*6/uL Low 3.80 - 5.20 10*6/uL [facility] WBC (Bld) [#/Vol] 18.4 10*3/uL High 3.6 - 10.7 10*3/uL [facility] CBC WITH AUTO DIFFERENTIALon 01-26-2025 Basophils (Bld) [#/Vol] 0.0 10*3/uL Normal 0.0-0.2 [facility] Comment on above: Performed By: #### L [id number] ####Rn Building: BROOKE RINCON ([id number])[facility])[address] [place] [address] Basophils/100 WBC (Bld) 0.2 % Normal 0.0-2.0 [facility] Comment on above: Performed By: #### L [id number] ####Rn Building: BROOKE RINCON ([id number])[address] Eosinophils (Bld) [#/Vol] 0.0 10*3/uL Normal 0.0-0.5 [facility] Comment on above: Performed By: #### L [id number] ####Rn Building: BROOKE RINCON ([id number])[facility])[address] [place] [address] [place] Eosinophils/100 WBC (Bld) 0.0 % Normal 0.0-6.0 [facility] Comment on above: Performed By: #### L [id number] ####Rn Building: BROOKE [id number])[facility] [address] Erythrocyte distribution width (RBC) [Ratio] 14.6 % Normal 11.5-15.0 [facility] Comment on above: Performed By: #### L [id number] ####Rn Building: BROOKE RINCON ([id number])[facility])[address] [place] [address] Hematocrit (Bld) [Volume fraction] 37.3 % Normal 35.0-47.0 [facility] Comment on above: Performed By: #### L [id number] ####Rn Building: BROOKE RINCON ([id number])[facility])[address] [place] [address] Hemoglobin (Bld) [Mass/Vol] 11.4 g/dL Low 11.7-16.0 [facility] Comment on above: Performed By: #### L [id number] ####Rn Building: BROOKE RINCON ([id number])[facility])[address] [place] [address] IMMATURE GRANS % 0.7 % Normal 0.0-2.0 [facility] Comment on above: Performed By: #### L [id number] ####Rn Building: BROOKE RINCON ([id number])[facility])[address] [place] [address] IMMATURE GRANS ABSOLUTE 0.1 10*3/uL High <0.1 [facility] Comment on above: Performed By: #### L [id number] ####Rn Building: BROOKE RINCON ([id number])[facility])[address] [place] [address] Lymphocytes (Bld) [#/Vol] 0.7 10*3/uL Low 1.0-4.3 [facility] Comment on above: Performed By: #### L [id number] ####Rn Building: BROOKE RINCON ([id number])[facility])[address] [place] [address] [place] Lymphocytes/100 WBC (Bld) 3.6 % Low 15.0-45.0 [facility] Comment on above: Performed By: #### L [id number] ####Rn Building: BROOKE RINCON ([id number])[facility])[address] [place] [address] MCH (RBC) [Entitic mass] 30.3 pg Normal 26.0-34.0 [facility] Comment on above: Performed By: #### L [id number] ####Rn Building: BROOKE RINCON ([id number])[facility])[address] [place] [address] MCHC 30.6 % Normal 30.5-36.0 [facility] Comment on above: Performed By: #### L [id number] ####Rn Building: BROOKE RINCON ([id number])[facility])[address] [place] [address] MCV (RBC) [Entitic vol] 99.2 fL High 77.0-99.0 [facility] Comment on above: Performed By: #### L [id number] ####Rn Building: BROOKE RINCON ([id number])[facility])[address] [place] [address] Monocytes (Bld) [#/Vol] 0.8 10*3/uL Normal 0.0-0.9 [facility] Comment on above: Performed By: #### L [id number] ####Rn Building: BROOKE RINCON ([id number])[facility])[address] [place] [address] Monocytes/100 WBC (Bld) 4.1 % Low 5.0-13.0 [facility] Comment on above: Performed By: #### L [id number] ####Rn Building: BROOKE RINCON ([id number])[facility])[address] [place] [address] NEUTROPHILS ABSOLUTE 16.9 10*3/uL High 1.8-7.5 [facility] Comment on above: Performed By: #### L [id number] ####Rn Building: BROOKE [id number])[facility] ([facility])[address] [place] [address] Neutrophils/100 WBC (Bld) 91.4 % High 38.0-82.0 [facility] Comment on above: Performed By: #### L [id number] ####Rn Building: BROOKE RINCON ([id number])[facility] ([facility])[address] [place] [address] NRBC 0.0 /100 WBCs Normal 0.0-2.0 [facility] Comment on above: Performed By: #### L [id number] ####Rn Building: BROOKE RINCON ([id number])[facility])[address] [place] [address] Platelet mean volume (Bld) [Entitic vol] 11.2 fL Normal 9.0-12.7 [facility] Comment on above: Performed By: #### L [id number] ####Rn Building: BROOKE RINCON ([id number])[facility] ([facility])[address] [place] [address] [place] Platelets (Bld) [#/Vol] 110 10*3/uL Low 140-440 [facility] Comment on above: Performed By: #### L [id number] ####Rn Building: BROOKE RINCON ([id number])[facility] ([facility])[address] [place] [address] [place] RBC (Bld) [#/Vol] 3.76 10*6/uL Low 3.80-5.20 [facility] Comment on above: Performed By: #### L [id number] ####Rn Building: BROOKE RINCON ([id number])[facility] ([facility])[address] [place] [address] [place] WBC (Bld) [#/Vol] 18.4 10*3/uL High 3.6-10.7 [facility] Comment on above: Performed By: #### L [id number] ####Rn Building: BROOKE RINCON ([id number])[facility] ([facility])[address] [place] [address] COMPLETE URINALYSIS WITH REF MAI TO CULTUREon 01-26-2025 BACTERIA (#/HPF) IN URINE Negative Normal Negative [facility] Comment on above: Performed By: #### L [id number] ####Rn Building: BROOKE RINCON ([id number])[facility] ([facility])[address] [place] [address] BILIRUBIN, TOTAL PRESENCE IN URINE Negative Normal Negative [facility] Comment on above: Performed By: #### L [id number] ####Rn Building: BROOKE RINCON ([id number])[facility] ([facility])[address] [place] [address] Clarity (U) Clear Normal Clear [facility] Comment on above: Performed By: #### L [id number] ####Rn Building: BROOKE RINCON ([id number])[facility] ([facility])[address] [place] [address] Color (U) Colorless Normal Lt. Yellow [facility] Comment on above: Performed By: #### L [id number] ####Rn Building: BROOKE RINCON ([id number])[facility] ([facility])[address] [place] [address] [place] GLUCOSE (MG/DL) IN URINE >1,000 Abnormal Normal (<70) [facility] Comment on above: Performed By: #### L [id number] ####Rn Building: BROOKE RINCON ([id number])[facility] ([facility])[address] [place] [address] [place] HEMOGLOBIN PRESENCE IN URINE Negative Normal Negative [facility] Comment on above: Performed By: #### L [id number] ####Rn Building: BROOKE RINCON ([id number])[facility] ([facility])[address] [place] [address] [place] Ketones Ql (U) Negative Normal Negative [facility] Comment on above: Performed By: #### L [id number] ####Rn Building: BROOKE RINCON ([id number])[facility] REYNOLDS [facility] ([facility])[address] [place] [address] LEUKOCYTE ESTERASE PRESENCE IN URINE BY TEST STRIP Negative Normal Negative [facility] Comment on above: Performed By: #### L [id number] ####Rn Building: BROOKE RINCON ([id number])[facility] RE[facility]OLDS [facility] ([facility])[address] [place] [address] NITRITE PRESENCE IN URINE Negative Normal Negative [facility] Comment on above: Performed By: #### L [id number] ####Rn Building: BROOKE RINCON ([id number])[facility] RE[facility]DS [facility] ([facility])[address] [place] [address] [place] NON-SQUAMOUS EPITHELIAL (#/HPF) IN URINE 3-5 Abnormal Negative [facility] Comment on above: Performed By: #### L [id number] ####Rn Building: BROOKE RINCON ([id number])[facility] REYNOLDS [facility] ([facility])[address] [place] [address] pH (U) 6.0 [pH] Normal 5.0-8.0 [facility] [facility] Comment on above: Performed By: #### L [id number] ####Rn Building: BROOKE RINCON ([id number])[facility] REYNOLDS RITTMAN (SWRLAB)[address] [place] [address] [place] Protein (U) [Mass/Vol] 20 mg/dL Abnormal Negative [facility] Comment on above: Performed By: #### L [id number] ####Rn Building: BROOKE RINCON ([id number])[facility] REYNOLDS RITTM[employer] (SWRLAB)[address] [place] [address] [place] RBC (#/HPF) IN URINE SEDIMENT 0-2 Normal 0-2 [facility] Comment on above: Performed By: #### L [id number] ####Rn Building: BROOKE RINCON ([id number])[facility]ITAL[facility] REYNOLDS RITTMAN (SWRLAB)[address] [place] [address] Specific gravity (U) [Rel density] 1.013 Normal 1.005-1.03 0 [facility] Comment on above: Result Comment: CARLTON Geiger COMMENTS:A specimen with <=10 WBC is not consistent with inflammation. This specimen will not reflex to a urine culture. Performed By: #### L [id number] ####Rn Building: BROOKE RINCON ([id number])[facility]ITAL[facility] REYNOLDS RITTMAN (SWRLAB)[address] [place] [address] Specimen volume (U) 12 mL Normal [facility] Comment on above: Performed By: #### L [id number] ####Rn Building: BROOKE RINCON ([id number])[facility]ITAL[facility] REYNOLDS RITTMAN (SWRLAB)[address] [place] [address] SQUAMOUS EPITHELIAL CELLS (#/HPF) IN URINE SEDIMENT 3-5 Normal 3-5 [facility] Comment on above: Performed By: #### L [id number] ####Rn Building: BROOKE RINCON ([id number])[facility]ITAL[facility] REYNOLDS RITTMAN (SWRLAB)[address] [place] [address] UROBILINOGEN (MG/DL) IN URINE Normal Normal Normal (0-1) [facility] Comment on above: Performed By: #### L [id number] ####Rn Building: BROOKE RINCON ([id number])[facility]ITAL[facility] REYNOLDS RITTMAN (SWRLAB)[address] [place] [address] WBC (LEUKOCYTE) (#/HPF) IN URINE SEDIMENT 3-5 Normal 0-5 [facility] Comment on above: Performed By: #### L [id number] ####Rn Building: BROOKE RINCON ([id number])[facility]ITAL[facility] MEADRODOLFO RITTMAN (SWRLAB)[address] [place] [address] COMPREHENSIVE METABOLIC PANE David 06-17-2025 Albumin [Mass/Vol] 3.1 g/dL Low 3.4-4.8 [facility] Comment on above: Performed By: #### L [id number] ####Rn Building: BROOKE RINCON ([id number])[facility] ([facility])[address] [place] [address] ALP [Catalytic activity/Vol] 40 U/L Normal 40-150 [facility] Comment on above: Performed By: #### L [id number] ####Rn Building: BROOKE RINCON ([id number])[facility] ([facility])[address] [place] [address] ALT [Catalytic activity/Vol] 11 U/L Normal <30 [facility] Comment on above: Performed By: #### L [id number] ####Rn Building: BROOKE RINCON ([id number])[facility] ([facility])[address] [place] [address] Anion gap [Moles/Vol] 9 mmol/L Normal 3-13 [facility] Comment on above: Performed By: #### L [id number] ####Rn Building: BROOKE RINCON ([id number])[facility] ([facility])[address] [place] [address] AST [Catalytic activity/Vol] 17 U/L Normal <34 [facility] Comment on above: Performed By: #### L [id number] ####Rn Building: BROOKE RINCON ([id number])[facility] ([facility])[address] [place] [address] Bilirubin [Mass/Vol] 0.4 mg/dL Normal <1.2 [facility] Comment on above: Performed By: #### L [id number] ####Rn Building: BROOKE RINCON ([id number])[facility] ([facility])[address] [place] [address] Calcium [Mass/Vol] 8.7 mg/dL Low 8.8-10.0 [facility] Comment on above: Performed By: #### L [id number] ####Rn Building: BROOKE RINCON ([id number])[facility] ([facility])[address] [place] [address] Chloride [Moles/Vol] 107 mmol/L Normal 98-107 [facility] Comment on above: Performed By: #### L [id number] ####Rn Building: BROOKE RINCON ([id number])[facility])[address] [place] [address] CO2 [Moles/Vol] 19 mmol/L Low 23-31 [facility] Comment on above: Performed By: #### L [id number] ####Rn Building: BROOKE RINCON ([id number])[facility])[address] [place] [address] Creatinine [Mass/Vol] 1.44 mg/dL High 0.57-1.11 [facility] Comment on above: Performed By: #### L [id number] ####Rn Building: BROOKE RINCON ([id number])[facility])[address] [place] [address] [place] GLOMERULAR FILTRATION RATE ML/MIN/1.73 SQ M.PREDICTED 35.7 mL/min/1.73m*2 Low >60.0 [facility] Comment on above: Result Comment: Calc ulation based on the Chronic Kidney Disease Epidemiology Collaboration (CKD-EPI) equation refit without adjustment for race Performed By: #### L [id number] ####Rn Building: BROOKE RINCON ([id number])[facility])[address] [place] [address] [place] Glucose [Mass/Vol] 250 mg/dL High 82-115 [facility] Comment on above: Performed By: #### L [id number] ####Rn Building: BROOKE RINCON ([id number])[facility])[address] [place] [address] [place] Potassium [Moles/Vol] 4.5 mmol/L Normal 3.5-5.1 [facility] Comment on above: Result Comment: [facility] potassium values may be up to 0.5 mmol/L lower than serum values. Performed By: #### L [id number] ####Rn Building: BROOKE RINCON ([id number])[facility])[address] [place] [address] Protein [Mass/Vol] 6.4 g/dL Normal 6.4-8.3 [facility] Comment on above: Performed By: #### L [id number] ####Rn Building: BROOKE RINCON ([id number])[facility])[address] [place] [address] Sodium [Moles/Vol] 135 mmol/L Low 136-145 [facility] Comment on above: Performed By: #### L [id number] ####Rn Building: BROOKE RINCON ([id number])[facility])[address] [place] [address] Urea nitrogen [Mass/Vol] 44 mg/dL High 9-23 [facility] Comment on above: Performed By: #### L [id number] ####Rn Building: BROOKE RINCON ([id number])[facility] ([facility])[address] [place] [address] COVID-19, Flu A/B, and RSV C omboon 01-26-2025 Interpretation and review of laboratory results Normal [facility] CRP [Mass/Vol]on 01-26-2025 Interpretation and review of laboratory results Abnormal [facility] CT ABDOMEN PELVIS W CONTRAST on 01-26-2025 CT ABDOMEN PELVIS W CONTRAST Normal [facility] CT Abdomen and Pelvis W cont rast Quin 01-26-2025 No acute findings are seen on this examination to explain the patient's pain. Report Dictated on Electronically Signed By: Herman Hein MD Electronically Signed Date/Time: 01/26/2025 1:41 AM [facility] [employer] Patient Name: HANNA NELSON : 1940 Exam Date/Time: 01/26/2025 01:21 Procedure: CT ABDOMEN PELVIS W CONTRAST Ordering Provider: CONLEY J Reason For Exam: Abdominal pain, acute, nonlocalized CT ABDOMEN AND PELVIS WITH CONTRAST CLINICAL INDICATION: Abdominal pain Axial CT images of the abdomen and pelvis were acquired after the administration of intravenous contrast. 75 ml of Isovue-370 contrast was given intravenously. Oral contrast was not given for this examination. Dose reduction was employed with automated exposure control. COMPARISON: None FINDINGS: The gallbladder has been removed. The liver, spleen, pancreas, and adrenal glands appear within normal limits. Small bilateral renal cysts are noted. The abdominal aorta is normal in caliber. There is no retroperitoneal, pelvic, or inguinal lymphadenopathy. The urinary bladder appears grossly normal. The uterus does not appear enlarged. The large and small bowel appears within normal limits without evidence of wall thickening or dilatation. There is no free fluid within the abdomen or pelvis. There is no free air under the diaphragm. The visualized portion of the lung bases appear clear. No lytic or blastic lesions are seen on the bone windows. Metallic fixation hardware is noted within the right hip. This is not fully imaged. [facility] Herman Hein MD - 01/26/2025 [facility] Name: [facility] 1940 [id number] Exam Date/Time: 01/26/2025 01:21 Procedure: CT ABDOMEN PELVIS W CONTRAST Ordering Provider: CONLEY J Reason For Exam: Abdominal pain, acute, nonlocalized CT ABDOMEN AND PELVIS WITH CONTRAST CLINICAL INDICATION: Abdominal pain Axial CT images of the abdomen and pelvis were acquired after the administration of intravenous contrast. 75 ml of Isovue-370 contrast was given intravenously. Oral contrast was not given for this examination. Dose reduction was employed with automated exposure control. COMPARISON: None FINDINGS: The gallbladder has been removed. The liver, spleen, pancreas, and adrenal glands appear within normal limits. Small bilateral renal cysts are noted. The abdominal aorta is normal in caliber. There is no retroperitoneal, pelvic, or inguinal lymphadenopathy. The urinary bladder appears grossly normal. The uterus does not appear enlarged. The large and small bowel appears within normal limits without evidence of wall thickening or dilatation. There is no free fluid within the abdomen or pelvis. There is no free air under the diaphragm. The visualized portion of the lung bases appear clear. No lytic or blastic lesions are seen on the bone windows. Metallic fixation hardware is noted within the right hip. This is not fully imaged. IMPRESSION: No acute findings are seen on this examination to explain the patient's pain. Report Dictated on Electronically Signed By: Herman Hein MD Electronically Signed Date/Time: 01/26/2025 1:41 AM EDT [facility] Radiology Study observation (narrative) [facility] CT Abdomen and Pelvis W cont rast IVOrdered By: Herman Hein on 01-26-2025 [facility] CULTURE ANAEROBICon 01-27-20 25 CULTURE ANAEROBIC Normal [facility] Comment on above: Performed By: #### L [id number] ####Rn Building: BROOKE RINCON ([id number])[facility] ([facility])[address] [place] [address] CULTURE ANAEROBIC Normal [facility] Comment on above: Performed By: #### L [id number] ####Rn Building: BROOKE RINCON ([id number])[facility] ([facility])[address] [place] [address] CULTURE, AEROBIC BACTERIA WI TH GRAM STAINon 01-26-2025 CULTURE, AEROBIC BACTERIA WITH GRAM STAIN Normal [facility] Comment on above: Performed By: #### L [id number] ####Rn Building: BROOKE RINCON ([id number])[facility] ([facility])[address] [place] [address] CULTURE, AEROBIC BACTERIA WITH GRAM STAIN Normal [facility] Comment on above: Performed By: #### L [id number] ####Rn Building: BROOKE RINCON ([id number])[facility] ([facility])[address] [place] [address] Comprehensive metabolic 1998 panelon 01-26-2025 Albumin [Mass/Vol] 3.1 g/dL Low 3.4 - 4.8 g/dL [facility] ALP [Catalytic activity/Vol] 40 U/L 40 - 150 U/L [facility] ALT [Catalytic activity/Vol] 11 U/L NINF - 30 U/L [facility] Anion gap [Moles/Vol] 9 mmol/L 3 - 13 mmol/L [facility] AST [Catalytic activity/Vol] 17 U/L NINF - 34 U/L [facility] Bilirubin [Mass/Vol] 0.4 mg/dL NINF - 1.2 mg/dL [facility] Calcium [Mass/Vol] 8.7 mg/dL Low 8.8 - 10. 0 mg/dL [facility] Chloride [Moles/Vol] 107 mmol/L 98 - 10 7 mmol/L [facility] CO2 [Moles/Vol] 19 mmol/L Low 23 - 31 mmol/L [facility] Creatinine [Mass/Vol] 1.44 mg/dL High 0.57 - 1.11 mg/dL [facility] GFR/1.73 sq M.predicted (S/P/Bld) [Vol rate/Area] 35.7 mL/min Low - PINF [facility] Comment on above: Calculation based on the Chronic Kidney Disease Epidemiology Collaboration (CKD-EPI) equation refit without adjustment for race Glucose [Mass/Vol] 250 mg/dL High 82 - 115 mg/dL [facility] Interpretation and review of laboratory results Abnormal [facility] Potassium [Moles/Vol] 4.5 mmol/L 3.5 - 5.1 mmol/L [facility] Comment on above: Plasma potassium ashley ues may be up to 0.5 mmol/L lower than serum values. Protein [Mass/Vol] 6.4 g/dL 6.4 - 8.3 g/dL [facility] Sodium [Moles/Vol] 135 mmol/L Low 136 - 145 mmol/L [facility] Urea nitrogen [Mass/Vol] 44 mg/dL High 9 - 23 mg/dL [facility] Consulton 01-26-2025 Consult Normal [facility] ECG 12-LEADon 01-26-2025 ECG 12-LEAD IMPRESSION: Atrial fibrillation with rapid V-rate Left axis deviation Electronically Signed On 01-26-2025 01:16:19 EDT by Marcela Conley [facility] ED Nursing Noteon 01-26-2025 ED Nursing Note Dimitris steve ed for transport. Hand off report given to medic. Normal [facility] ED Nursing Note Report Called to Matt sebastian RN 5W Rodrigo Baca. Normal [facility] ESR (Bld) [Velocity]Ordered By: Antoinette Giang on 01-26-2025 Interpretation and review of laboratory results Normal [facility] Free T3 [Mass/Vol]on 025 Interpretation and review of laboratory results Normal [facility] HIGH SENSITIVITY TROPONIN, S ERIAL, SECOND TESTon 01-26-2025 2H TROPONIN HS (SERIAL 2ND TROPONIN) 18 ng/L High <=14 [facility] Comment on above: Result Comment: 2h t roponin (2nd troponin) samples collected between 1h 40 min and 2h and 20 min of the baseline collection time can be utilized to interpret delta troponins as per [employer] algorithms. Samples collected outside this timeframe need to be interpreted clinically.Rising or falling troponin delta between 2 ??? 15 ng/L as compared to baseline value requires a 3rd serial troponin Performed By: #### L [id number] ####Rn Building: BROOKE RINCON ([id number])[facility] RODOLFOWanteringAN ([employer])[address] [place] [address] HIGH SENSITIVITY TROPONIN, S ERIAL, THIRD TESTon 01-26-2025 4H TROPONIN HS (SERIAL 3RD TROPONIN) 24 ng/L High <=14 [facility] Comment on above: Result Comment: 4h t roponin (3rd troponin) samples collected between 1h 40 min and 2h and 20 min of the 2h troponin collection time can be utilized to interpret delta troponins as per Summa algorithms. Samples collected outside this timeframe need to be interpreted clinically.Rising or falling troponin delta between 2 ??? 15 ng/L as compared to 2h troponin valuerequires further evaluation. Performed By: #### L [id number], [id number] ####Rn Building: BROOKE RINCON ([id number])[facility]ITALJul[facility] GABRIELRODOLFO [employer]AN (SWRLAB)[address] [place] [address] LACTIC ACID WITH REFLEXon Lactate [Moles/Vol] 1.8 mmol/L Normal 0.5-2.2 [facility] Comment on above: Performed By: #### L [id number] ####Rn Building: BROOKE RINCON ([id number])[facility]ITAL[facility] REYNOLDS [employer]AN (SWRLAB)[address] [place] [address] Lactate [Moles/Vol] 2.6 mmol/L High 0.5-2.2 [facility] Comment on above: Performed By: #### L [id number] ####Rn Building: BROOKE RINCON ([id number])[facility]ITAL[facility]ODOL[facility] YOBANI (SWRLAB)[address] [place] [address] Laboratory - Chemistry and C hemistry - challengeon 01-26-2025 Glucose [Mass/Vol] 288 mg/dL High 70 - 100 mg/dL [facility] Glucose [Mass/Vol] 269 mg/dL High 70 - 100 mg/dL [facility] CRP [Mass/Vol] 95.4 mg/L High NINF - 5.0 mg/L [facility] Glucose [Mass/Vol] 252 mg/dL High 70 - 100 mg/dL [facility] Glucose [Mass/Vol] 245 mg/dL High 70 - 100 mg/dL [facility] Lactate [Moles/Vol] 1.8 mmol/L 0.5 - 2. 2 mmol/L [facility] Lactate [Moles/Vol] 2.6 mmol/L High 0.5 - 2. 2 mmol/L [facility] Free T3 [Mass/Vol] 2.25 pg/mL 1.58 - 3.91 pg/mL [facility] Laboratory - Coagulationon 0 01-26-2025 PT Coag (Bld) [Time] 12.7 s High 9.0 - 1 2.0 s [facility] Laboratory - Hematology and Cell countsOrdered By: Antoinette Giang on 01-26-2025 ESR (Bld) [Velocity] 17 mm/h [facility] Laboratory - Microbiology an d Antimicrobial susceptibilityon 01-26-2025 FLUAV RNA ROBERT+probe Ql (Resp) Not detected Not Detected [facility] FLUBV RNA ROBERT+probe Ql (Resp) Not detected Not Detected [facility] RSV RNA ROBERT+probe Ql (Resp) Not detected Not Detected [facility] SARS-CoV-2 (COVID-19) RNA ROBERT+probe Ql (Resp) Not detected Not Detected [facility] SARS-CoV-2 (COVID-19) RNA ROBERT+probe Ql (Unsp spec) Methodology: real-time, RT-PCR The SARS-CoV-2, Flu A/B, and RSV Combo assay is intended for in vitro diagnostic use under the FDA Emergency Use Authorization (EUA). This test has not been FDA cleared or approved. In compliance with this authorization, please visit www.fda.gov/media/699716/do wnload or www.fda.gov/media/426576/do wnload to access the applicable information sheets. [facility] MR Foot - right WO and Justo gomez Quin 01-26-2025 Radiology Study observation (narrative) [facility] [employer] No Panel Informationon 01-26 Interpretation and review of laboratory results Abnormal [facility] [employer] Performed by: [address], [facility] [address] CLIA ID: [id number] [facility] Interpretation and review of laboratory results Abnormal [facility] Performed by: [address] [address] CLIA ID: [id number] [facility] Interpretation and review of laboratory results Abnormal [facility] Performed by: [address], [facility] [address] CLIA ID: [id number] [facility] Interpretation and review of laboratory results Abnormal [facility] [employer] Performed by: [facility], [address] [place] [address] CLIA ID: [id number] [facility] 4h Troponin HS (Serial 3rd Troponin) 24 ng/L High NINF - 14 ng/L [facility] Comment on above: 4h troponin (3rd tro ponin) samples collected between 1h 40 min and 2h and 20 min of the 2h troponin collection time can be utilized to interpret delta troponins as per Summa algorithms. Samples collected outside this timeframe need to be interpreted clinically. Rising or falling troponin delta between 2 15 ng/L as compared to 2h troponin value requires further evaluation. Interpretation and review of laboratory results Abnormal [facility] Interpretation and review of laboratory results Normal [facility] Interpretation and review of laboratory results Abnormal [facility] 2h Troponin HS (Serial 2nd Troponin) 18 ng/L High NINF - 14 ng/L [facility] Comment on above: 2h troponin (2nd tro ponin) samples collected between 1h 40 min and 2h and 20 min of the baseline collection time can be utilized to interpret delta troponins as per Summa algorithms. Samples collected outside this timeframe need to be interpreted clinically. Rising or falling troponin delta between 2 15 ng/L as compared to baseline value requires a 3rd serial troponin Interpretation and review of laboratory results Abnormal [facility] P [place] 0 degrees [facility] [place] Interval 0 ms [facility] QRS [place] -30 degrees [facility] QRSD Interval 92 ms [facility] QT Interval 276 ms [facility] QTC Interval 439 ms [facility] T Wave [place] 68 degrees [facility] Atrial fibrillation with rapid V-rate Left axis deviation Electronically Signed On 01-26-2025 01:16:19 EDT by Marcela Conley Sanjuanita Gallagher MD - 01/26/2025 IMPRESSION: Atrial fibrillation with rapid V-rate Left axis deviation Electronically Signed On 01-26-2025 01:16:19 EDT by Marcela oCnley [facility] Interpretation and review of laboratory results Normal [facility] Troponin HS Serial Baseline 10 ng/L NINF - 14 ng/L [facility] Comment on above: In individuals prese nting with symptoms > 2h, a baseline troponin <= 5 ng/L suggests acute cardiac injury is unlikely and further serial testing is generally not indicated. [facility] Nursing Noteon 01-26-2025 [facility] call light in reach, bed low and locked, made aware of pt admit and pt daughter was called to inform her of pt move Normal [facility] PROTHROMBIN TIMEon INR Coag (PPP) [Relative time] 1.2 {INR} High 0.9-1.1 [facility] Comment on above: Result Comment: Channing mmended Anticoagulant Therapy: SEE BELOW----- INR of 2.0 - 3.0 : - Prophylaxis of Venous Thrombosis (high-risk surgery) - Treatment of Venous Thrombosis - Treatment of Pulmonary Embolism (Includes tissue heart valves, Acute Myocardial Infarction to prevent systemic embolism, Valvular Heart Disease, and Atrial Fibrillation)----- INR of 2.5 - 3.5 : - Mechanical Prosthetic Valves (high risk) - If oral anticoagulant therapy is used to prevent Myocardial Infarction Performed By: #### L [id number] ####Rn Building: BROOKE RINCON ([id number])[facility] ([address] PT Coag (PPP) [Time] 12.7 s High 9.0-12.0 [facility] Comment on above: Performed By: #### L [id number] ####Rn Building: BROOKE RINCON ([id number])[facility] ([employer])[address] [place] [address] PT Coag (Bld) [Time]on 01-26 INR Coag (PPP) [Relative time] 1.2 {INR} High 0.9 - 1.1 [facility] Comment on above: Recommended Anticoag ulant Therapy: SEE BELOW ----- INR of 2.0 - 3.0 : - Prophylaxis of Venous Thrombosis (high-risk surgery) - Treatment of Venous Thrombosis - Treatment of Pulmonary Embolism (Includes tissue heart valves, Acute Myocardial Infarction to prevent systemic embolism, Valvular Heart Disease, and Atrial Fibrillation) ----- INR of 2.5 - 3.5 : - Mechanical Prosthetic Valves (high risk) - If oral anticoagulant therapy is used to prevent Myocardial Infarction Interpretation and review of laboratory results Abnormal [facility] Progress Noteon 01-26-2025 Progress Note Normal [facility] Progress Note Normal [facility] SARS-COV-2, FLU A/B, AND RSV COMBOon 01-26-2025 SARS-CoV-2 (COVID-19) RNA ROBERT+probe Ql (Unsp spec) Normal [facility] Comment on above: Performed By: #### L [id number] ####Rn Building: BROOKE RINCON ([id number])[facility] ([facility])[address] [place] [address] SEDIMENTATION RATE, AUTOMATE Don 01-26-2025 SEDIMENTATION RATE, ERYTHROCYTE 17 mm/hr Normal 0-20 [facility] Comment on above: Performed By: #### L [id number] ####Rn Building: BROOKE RINCON ([id number])[facility] ([facility])[address] [place] [address] URINE CULTUREon 01-26-2025 Bacteria identified Cx Nom (U) Normal [facility] Comment on above: Performed By: #### L [id number] ####Rn Building: BROOKE RINCON ([id number])[facility] ([facility])[address] [place] Lower extremity arteryOrd ered By: Lucy Flanagan on 01-26-2025 Left RIKA 1.[address] [facility] Work Phone: Left arm BP [address] [facility] Work Phone: Left dorsalis pedis BP 131 mmHg [facility] Work Phone: Left posterior tibial 112 mmHg [facility] Work Phone: Right RIKA 1.[address] [address] [facility] Work Phone: Right arm BP 108 mmHg [facility] Work Phone: Right dorsalis pedis BP [address] [facility] Work Phone: Right posterior tibial 134 mmHg [facility] Work Phone: Right TBI 0.[address] [facility] Work Phone: Right toe pressure [address] [facility] Work Phone: US Lower extremity arteryon 01-26-2025 Right side findings: Resting RIKA is 1.11. This is within the normal range. Decreased resting right TBI. Left side findings: Resting RIKA is 1.08. This is within the normal range. PVR waveforms appear normal at rest. Study Details Pulsed volume recording (PVR) and photo plethysmography was performed. The exam was performed with the patient in the supine position. Overall the study quality was adequate. RIKA Right side findings: Normal resting RIKA. Decreased resting TBI. Left side findings: Normal resting RIKA. 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 Normal - upper thigh, lower thigh, calf, ankle, 1st digit and 5th digit. Left PVR waveforms: Consistent with SEVERE disease - 1st digit, 2nd digit, 3rd digit, 4th digit and 5th digit. Normal at rest. CV CPACS US Lower extremity vein - bi lateralon 01-26-2025 No evidence of deep vein or superficial vein thrombosis in the right lower extremity. Vessels demonstrate normal compressibility, color filling, and phasic and spontaneous flow. No evidence of deep vein and superficial thrombosis in the left lower extremity. Study performed by Vitaliia U. Study Details A stephens scale, color Doppler imaging and spectral Doppler analysis ultrasound was performed. During the study longitudinal and transverse views were obtained. Pulsed wave doppler was performed. Overall the study quality was poor visualization. Study was technically difficult due to: body habitus. Right Lower Venous No evidence of deep vein or superficial vein thrombosis. The common femoral, saphenofemoral junction, femoral, popliteal, gastrocnemius, soleal, greater saphenous, posterior tibial, and peroneal veins were imaged in the transverse view and showed normal compressibility. The common femoral, middle femoral, and popliteal veins were imaged in the longitudinal view and showed normal color filling and normal phasic and spontaneous flow. Left Lower Venous No evidence of deep vein and superficial thrombosis in the left lower extremity. Common Femoral Vein: Patent, normal phasicity, spontaneous, normal augmentation, compressible. Greater Saphenous Vein: Enitre vessel patent, compressible. Saphenofemoral Junction: Patent, compressible. Profunda Femoral Vein: Patent. Femoral Vein: Patent, normal phasicity, spontaneous, normal augmentation, compressible. Popliteal Vein: Patent, normal phasicity, spontaneous, normal augmentation, compressible. Gastrocnemius Vein: Patent, compressible. Soleal Vein: Patent, compressible. Posterior Tibial Vein: Patent, compressible. Peroneal Vein: Not visualized. CV CPACS Urinalysis complete panel (U )on 01-26-2025 Bacteria LM.HPF (Urine sed) [#/Area] Negative Negative /HPF [facility] Bilirubin Ql (U) Negative Negative mg/dL [facility] Clarity (U) Clear Clear [facility] Color (U) Colorless Lt. Yellow [facility] Epithelial cells.squamous LM.HPF (Urine sed) [#/Area] 3-5 [facility] Glucose Ql (U) >1,000 Abnormal Normal (<70) mg/dL [facility] Hemoglobin Ql (U) Negative Negative mg/dL [facility] Interpretation and review of laboratory results Abnormal [facility] Ketones (U) [Mass/Vol] Negative Negat eddie mg/dL [facility] Leukocyte esterase Test strip Ql (U) Negative Negative Baljit/uL [facility] Nitrite Ql (U) Negative Negative [facility] Non-Squamous Epithalial Cells, Urine 3-5 Abnormal Negative /HPF [facility] pH (U) 6.0 [pH] 5.0 - 8.0 pH [facility] Protein (U) [Mass/Vol] 20 mg/dL Abnormal Negative [facility] RBC LM.HPF (Urine sed) [#/Area] 0-2 [facility] Specific gravity (U) [Rel density] 1.013 1.005 - 1.030 [facility] Urobilinogen (U) [Mass/Vol] Normal Normal (0-1) mg/dL [facility] Volume, Urine 12 mL [facility] WBC LM.HPF (Urine sed) [#/Area] 3-5 [facility] A specimen with <=10 WBC is not consistent with inflammation. This specimen will not reflex to a urine culture. [facility] Vital signson 01-26-2025 Heart rate 152 /min bpm [facility] XR Chest Single viewon 01-26 Coarsening of the interstitial lung markings is likely chronic. No focal consolidation is identified. Report Dictated on Electronically Signed By: Herman Hein MD Electronically Signed Date/Time: 01/26/2025 1:49 AM EDT [facility] [address] Patient Name: HANNA NELSON : 1940 Exam Date/Time: 01/26/2025 01:45 Procedure: XR CHEST 1 VIEW Ordering Provider: CONLEY J Reason For Exam: fatigue PORTABLE CHEST X-RAY CLINICAL INDICATION: fatigue A portable frontal view of the chest was obtained. COMPARISON: None FINDINGS: The cardiac silhouette is within normal limits. Coarsening of the interstitial lung markings is noted, likely chronic. No focal consolidation is seen within the lungs. There is no large pleural effusion or pneumothorax. There are degenerative changes of the thoracic spine. [facility] Herman Hein MD - 01/26/2025 Patient Name: HANNA NELSON : 1940 Exam Date/Time: 01/26/2025 01:45 Procedure: XR CHEST 1 VIEW Ordering Provider: CONLEY J Reason For Exam: fatigue PORTABLE CHEST X-RAY CLINICAL INDICATION: fatigue A portable frontal view of the chest was obtained. COMPARISON: None FINDINGS: The cardiac silhouette is within normal limits. Coarsening of the interstitial lung markings is noted, likely chronic. No focal consolidation is seen within the lungs. There is no large pleural effusion or pneumothorax. There are degenerative changes of the thoracic spine. IMPRESSION: Coarsening of the interstitial lung markings is likely chronic. No focal consolidation is identified. Report Dictated on Electronically Signed By: Herman Hein MD Electronically Signed Date/Time: 01/26/2025 1:49 AM EDT [facility] Radiology Study observation (narrative) [facility] XR EYE FOREIGN BODY BILATERA David 01-26-2025 XR EYE FOREIGN BODY BILATERAL Normal [facility] XR FOOT 3+ VIEWS RIGHTon XR FOOT 3+ VIEWS RIGHT Normal [facility] XR Foot - right 3 Viewson Constellation of fin dings compatible with Charcot arthropathy with extensive arthritic changes and pes planus deformity. Resultant disuse osteopenia. Report Dictated on Electronically Signed By: Don Ceballos MD Electronically Signed Date/Time: 01/26/2025 3:41 PM EDT [facility] [address] Patient Name: HANNA NELSON : 1940 Exam Date/Time: 01/26/2025 14:12 Procedure: XR FOOT 3+ VIEWS RIGHT Ordering Provider: CRAWFORD SHELDON Reason For Exam: concern for diabetic foot infection, ?osteo RIGHT FOOT: CLINICAL INDICATION: Diabetes, cellulitis. TECHNIQUE: Nonweightbearing AP, lateral, and oblique COMPARISON: None. FINDINGS: Constellation of findings compatible with Charcot arthropathy with extensive obliteration and fusion of the tarsal and midfoot bones. There is pes planus deformity seen on lateral radiograph as a result of depression/destruction of the talocalcaneal joint and arch. 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 Arthritic changes seen in the tarsometatarsal and interphalangeal joints. Posterior and plantar calcaneal enthesophytes are seen. Soft tissue swelling is noted about the foot. No definitive evidence of cutaneous emphysema. [facility] Don Ceballos MD - 01/26/2025 Patient Name: HANNA NELSON : 1940 Exam Date/Time: 01/26/2025 14:12 Procedure: XR FOOT 3+ VIEWS RIGHT Ordering Provider: CRAWFORD SHELDON Reason For Exam: concern for diabetic foot infection, ?osteo RIGHT FOOT: CLINICAL INDICATION: Diabetes, cellulitis. TECHNIQUE: Nonweightbearing AP, lateral, and oblique COMPARISON: None. FINDINGS: Constellation of findings compatible with Charcot arthropathy with extensive obliteration and fusion of the tarsal and midfoot bones. There is pes planus deformity seen on lateral radiograph as a result of depression/destruction of the talocalcaneal joint and arch. 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 Arthritic changes seen in the tarsometatarsal and interphalangeal joints. Posterior and plantar calcaneal enthesophytes are seen. Soft tissue swelling is noted about the foot. No definitive evidence of cutaneous emphysema. IMPRESSION: Constellation of findings compatible with Charcot arthropathy with extensive arthritic changes and pes planus deformity. Resultant disuse osteopenia. Report Dictated on Electronically Signed By: Don Ceballos MD Electronically Signed Date/Time: 01/26/2025 3:41 PM EDT [facility] Radiology Study observation (narrative) [facility] XR Foot - right 3 ViewsOrder ed By: Don Ceballos on 01-26-2025 [facility] [employer] Work Phone: XR Orbit Views for foreign b odyon 01-26-2025 No metallic foreign body or electronic device to contraindicate MRI. Report Dictated on Electronically Signed By: Bucky Kitchen MD Electronically Signed Date/Time: 01/26/2025 2:19 PM EDT [facility] Patient Name: HANNA NELSON : 1940 Exam Date/Time: 01/26/2025 14:13 Procedure: XR EYE FOREIGN BODY BILATERAL Ordering Provider: CRAWFORD SHELDON Reason For Exam: MRI clearance EXAMINATION: XR EYE FOREIGN BODY BILATERAL HISTORY: MRI clearance. TECHNIQUE: XR EYE FOREIGN BODY BILATERAL COMPARISON: Head CT 12/02/2024 RESULT: No metallic foreign body, specifically no metallic foreign body of the orbits. No electronic device. Dental fillings. Degenerative changes of the cervical spine. [facility] Bucky Kitchen MD - 01/26/2025 [facility] 1940 [id number] Exam Date/Time: 01/26/2025 14:13 Procedure: XR EYE FOREIGN BODY BILATERAL Ordering Provider: CRAWFORD SHELDON Reason For Exam: MRI clearance EXAMINATION: XR EYE FOREIGN BODY BILATERAL HISTORY: MRI clearance. TECHNIQUE: XR EYE FOREIGN BODY BILATERAL COMPARISON: Head CT 12/02/2024 RESULT: No metallic foreign body, specifically no metallic foreign body of the orbits. No electronic device. Dental fillings. Degenerative changes of the cervical spine. IMPRESSION: No metallic foreign body or electronic device to contraindicate MRI. Report Dictated on Electronically Signed By: Bucky Kitchen MD Electronically Signed Date/Time: 01/26/2025 2:19 PM EDT [facility] Radiology Study observation (narrative) [facility] XR Orbit Views for foreign b odyOrdered By: Bucky Kitchen on 01-26-2025 [facility] Work Phone: BASIC METABOLIC PANELon 01-10 Anion gap [Moles/Vol] 12 mmol/L Normal 3-13 [facility] Comment on above: Performed By: #### L [id number] ####Rn Building: BROOKE RINCON ([id number])[facility] RODOLFO CodefastMICHAELAN ([employer])[address] [place] [address] Calcium [Mass/Vol] 9.4 mg/dL Normal 8.8-10.0 [facility] Comment on above: Performed By: #### L AB15 ####Rn Building: BROOKE RINCON ([id number])[facility] RODOLFO CodefastTMAN ([employer])[address] [place] [address] [place] Chloride [Moles/Vol] 105 mmol/L Normal 98-107 [facility] Comment on above: Performed By: #### L AB15 ####Rn Building: BROOKE RINCON ([id number])[facility] REYNOLDS RITTMAN (SWRLAB)[address] CO2 [Moles/Vol] 22 mmol/L Low 23-31 [facility] Comment on above: Performed By: #### L AB15 ####Rn Building: BROOKE RINCON ([id number])[facility] REYNOLDS RITTMAN (SWRLAB)[address] Creatinine [Mass/Vol] 1.45 mg/dL High 0.57-1.11 [facility] Comment on above: Performed By: #### L AB15 ####Rn Building: BROOKE RINCON ([id number])[facility] REYNOLDS RITTMAN (SWRLAB)[address] [place] [address] GLOMERULAR FILTRATION RATE ML/MIN/1.73 SQ M.PREDICTED 35.4 mL/min/1.73m*2 Low >60.0 [facility] Comment on above: Result Comment: Calc ulation based on the Chronic Kidney Disease Epidemiology Collaboration (CKD-EPI) equation refit without adjustment for race Performed By: #### L [id number] ####Rn Building: BROOKE RINCON ([id number])[facility] REYNOLDS RITTMAN (SWRLAB)[address] Glucose [Mass/Vol] 351 mg/dL High 82-115 [facility] Comment on above: Performed By: #### L AB15 ####Rn Building: BROOKE RINCON ([id number])[facility] REYNOLDS RITTMAN (SWRLAB)[address] Potassium [Moles/Vol] 4.6 mmol/L Normal 3.5-5.1 [facility] Comment on above: Result Comment: [facility] potassium values may be up to 0.5 mmol/L lower than serum values. Performed By: #### L AB15 ####Rn Building: BROOKE RINCON ([id number])[facility] RODOLFO CodefastTMAN (SWRLAB)[address] [place] [address] Sodium [Moles/Vol] 139 mmol/L Normal 136-145 [facility] Comment on above: Performed By: #### L AB15 ####Rn Building: BROOKE RINCON ([id number])[facility] CodefastTMAN (SWRLAB)[address] [place] [address] Urea nitrogen [Mass/Vol] 43 mg/dL High 9-23 [facility] Comment on above: Performed By: #### L AB15 ####Rn Building: BROOKE RINCON ([id number])[facility] OSMINTMAN (SWRLAB)[address] [place] [address] Basic metabolic 1998 panelon 01-25-2025 Anion gap [Moles/Vol] 12 mmol/L 3 - 13 mmol/L [facility] Calcium [Mass/Vol] 9.4 mg/dL 8.8 - 10. 0 mg/dL [facility] Chloride [Moles/Vol] 105 mmol/L 98 - 10 7 mmol/L [facility] CO2 [Moles/Vol] 22 mmol/L Low 23 - 31 mmol/L [facility] Creatinine [Mass/Vol] 1.45 mg/dL High 0.57 - 1.11 mg/dL [facility] GFR/1.73 sq M.predicted (S/P/Bld) [Vol rate/Area] 35.4 mL/min Low - PINF [facility] Comment on above: Calculation based on the Chronic Kidney Disease Epidemiology Collaboration (CKD-EPI) equation refit without adjustment for race Glucose [Mass/Vol] 351 mg/dL High 82 - 115 mg/dL [facility] Interpretation and review of laboratory results Abnormal [facility] Potassium [Moles/Vol] 4.6 mmol/L 3.5 - 5.1 mmol/L [facility] Comment on above: Plasma potassium ashley ues may be up to 0.5 mmol/L lower than serum values. Sodium [Moles/Vol] 139 mmol/L 136 - 145 mmol/L [facility] Urea nitrogen [Mass/Vol] 43 mg/dL High 9 - 23 mg/dL [facility] CBC W Auto Differential pane l (Bld)Ordered By: Keisha Aaron on 01-25-2025 Erythrocyte distribution width (RBC) [Ratio] 14.2 % 11.5 - 15.0 % [facility] Hematocrit (Bld) [Volume fraction] 38.6 % 35.0 - 47.0 % [facility] Hemoglobin (Bld) [Mass/Vol] 12.8 g/dL 11.7 - 16.0 g/dL [facility] MCH (RBC) [Entitic mass] 30.3 pg 26.0 - 34.0 pg [facility] MCHC (RBC) [Mass/Vol] 33.2 % 30.5 - 36.0 % [facility] MCV (RBC) [Entitic vol] 91.5 fL 77.0 - 99.0 fL [facility] Nucleated RBC/100 WBC (Bld) [Ratio] 0 % [facility] Platelet mean volume (Bld) [Entitic vol] 10.8 fL 9.0 - 12.7 fL [facility] Comment on above: MPV is a calculated measurement using platelet volume ratio Platelets (Bld) [#/Vol] 244 10*3/uL 140 - 440 10*3/uL [facility] RBC (Bld) [#/Vol] 4.22 10*6/uL 3.80 - 5.20 10*6/uL [facility] WBC (Bld) [#/Vol] 27 10*3/uL High 3.6 - 10.7 10*3/uL [facility] CBC WITH AUTO DIFFERENTIALon 01-25-2025 Erythrocyte distribution width (RBC) [Ratio] 14.2 % Normal 11.5-15.0 [facility] Comment on above: Performed By: #### L [id number], [id number] ####Rn Building: BROOKE RINCON ([id number])[facility] RITBRAYAN ([address] Hematocrit (Bld) [Volume fraction] 38.6 % Normal 35.0-47.0 [facility] Comment on above: Performed By: #### L [id number], [id number] ####Rn Building: BROOKE RINCON ([id number])[facility] REYNOLDS RITTMAN (SWRLAB)[address] [place] [address] Hemoglobin (Bld) [Mass/Vol] 12.8 g/dL Normal 11.7-16.0 [facility] Comment on above: Performed By: #### L [id number], [id number] ####Rn Building: BROOKE RINCON ([id number])[facility] REYNOLDS RITTMAN (SWRLAB)[address] [place] [address] MCH (RBC) [Entitic mass] 30.3 pg Normal 26.0-34.0 [facility] Comment on above: Performed By: #### L [id number], [id number] ####Rn Building: BROOKE RINCON ([id number])[facility] SOLORIOTMAN (SWRLAB)[address] [place] [address] MCHC 33.2 % Normal 30.5-36.0 [facility] Comment on above: Performed By: #### Jaz [id number], [id number] ####Rn Building: BROOKE RINCON ([id number])[facility] SOLORIOTMAN (SWRLAB)[address] [place] [address] MCV (RBC) [Entitic vol] 91.5 fL Normal 77.0-99.0 [facility] Comment on above: Performed By: #### L [id number], [id number] ####Rn Building: BROOKE RINCON ([id number])[facility] REYNOLDS RITTMAN (SWRLAB)[address] [place] [address] NRBC 0.0 /100 WBCs Normal 0.0-2.0 [facility] Comment on above: Performed By: #### L [id number], [id number] ####Rn Building: BROOKE RINCON ([id number])[facility] REYNOLDS RITTMAN (SWRLAB)[address] [place] [address] Platelet mean volume (Bld) [Entitic vol] 10.8 fL Normal 9.0-12.7 [facility] Comment on above: Result Comment: MPV is a calculated measurement using platelet volume ratio Performed By: #### L [id number], [id number] ####Rn Building: BROOKE RINCON ([id number])[facility] REYNOLDS RITTMAN (SWRLAB)[address] [place] [address] Platelets (Bld) [#/Vol] 244 10*3/uL Normal 140-440 [facility] Comment on above: Performed By: #### L [id number], [id number] ####Rn Building: BROOKE RINCON ([id number])[facility] REYNOLDS RITTMAN (SWRLAB)[address] RBC (Bld) [#/Vol] 4.22 10*6/uL Normal 3.80-5.20 [facility] Comment on above: Performed By: #### L [id number], [id number] ####Rn Building: BROOKE RINCON ([id number])[facility] REYNOLDS RITTMAN (SWRLAB)[address] [place] [address] WBC (Bld) [#/Vol] 27.0 10*3/uL High 3.6-10.7 [facility] Comment on above: Performed By: #### L [id number], [id number] ####Rn Building: BROOKE RINCON ([id number])[facility] REYNOLDS RITTMAN (SWRLAB)[address] [place] [address] ED Nursing Noteon 01-25-2025 ED Nursing Note The patient came in via ambulance. She is complaining of generally not feeling well. Per family the patient had elevated bp, hr, blood sugar. Generalized weakness, difficulty ambulating to the bathroom. Difficulty with being able to care for herself. Normal [facility] ED Provider Noteon ED Provider Note Normal [facility] FREE T4on 01-25-2025 Free T4 [Mass/Vol] 1.20 ng/dL Normal 0.70-1.48 [facility] Comment on above: Performed By: #### L [id number], [id number] ####Rn Building: BROOKE RINCON ([id number])[facility] OSMINTMAN (SWRLAB)[address] [place] [address] [place] Free T4 [Mass/Vol]on 025 Free T4 Dialysis [Mass/Vol] 1.2 ng/dL 0.70 - 1.48 ng/dL [facility] HIGH SENSITIVITY TROPONIN, S ERIAL BASELINEon 01-25-2025 TROPONIN HS SERIAL BASELINE 10 ng/L Normal <=14 [facility] Comment on above: Result Comment: In i ndividuals presenting with symptoms > 2h, a baseline troponin <= 5 ng/L suggests acutecardiac injury is unlikely and further serial testing is generally not indicated. Performed By: #### L [id number] ####Rn Building: BROOKE RINCON ([id number])[facility]ITAL[facility] OSMINTMAN (SWRLAB)[address] [place] [address] Laboratory - Chemistry and C hemistry - challengeon 01-25-2025 TSH Qn 1.44 m[IU]/L [facility] Glucose [Mass/Vol] 345 mg/dL High 70 - 100 mg/dL [facility] MANUAL DIFFERENTIALon 2024 BASOPHILS (10*3/UL) IN BLOOD BY MANUAL COUNT 0.0 10*3/uL Normal 0.0-0.2 [facility] Comment on above: Performed By: #### L [id number], [id number] ####Rn Building: BROOKE RINCON ([id number])[facility]PITALRODOLFORANDY SOLORIOTMAN (SWRLAB)[address] [place] [address] [place] BASOPHILS TOTAL PER COUNTED LEUKOCYTES BY MANUAL COUNT 0 Normal [facility] Comment on above: Performed By: #### L [id number], [id number] ####Rn Building: BROOKE RINCON ([id number])[facility]ITAL[facility] RITTMAN (SWRLAB)[address] [place] [address] [place] BASOPHILS/100 LEUKOCYTES IN BLOOD BY MANUAL COUNT 0 % Normal 0-2 [facility] Comment on above: Performed By: #### L [id number], [id number] ####Rn Building: BROOKE RINCON ([id number])[facility] RODOLFO RITTMAN (SWRLAB)[address] [place] [address] [place] CELLS COUNTED TOTAL (#) IN BLOOD 100 Normal [facility] Comment on above: Performed By: #### L [id number], [id number] ####Rn Building: BROOEK RINCON ([id number])[facility] RODOLFO RITTMAN (SWRLAB)[address] [place] [address] [place] DIFFERENTIAL METHOD Automated differenti al reported after manual slide review Normal [facility] Comment on above: Performed By: #### L [id number], [id number] ####Rn Building: BROOKE RINCON ([id number])[facility] RODOLFO RITTMAN (SWRLAB)[address] [place] [address] [place] EOSINOPHILS (10*3/UL) IN BLOOD BY MANUAL COUNT 0.0 10*3/uL Normal 0.0-0.5 [facility] Comment on above: Performed By: #### L [id number], [id number] ####Rn Building: BROOKE RINCON ([id number])[facility] RODOLFO RITTMAN (SWRLAB)[address] [place] [address] [place] EOSINOPHILS TOTAL PER COUNTED LEUKOCYTES BY MANUAL COUNT 0 Normal 0-1 [facility] Comment on above: Performed By: #### L [id number], [id number] ####Rn Building: BROOKE RINCON ([id number])[facility] RODOLFO RITTMAN (SWRLAB)[address] [place] [address] [place] EOSINOPHILS/100 LEUKOCYTES IN BLOOD BY MANUAL COUNT 0 % Normal 0-6 [facility] Comment on above: Performed By: #### L [id number], [id number] ####Rn Building: BROOKE RINCON ([id number])[facility] RODOLFO RITTMAN (SWRLAB)[address] [place] [address] [place] LEUKOCYTES (10*3/UL) NUCLEATED ERYTHROCYTE ADJUST 27.0 10*3/uL High 3.6-10.7 [facility] Comment on above: Performed By: #### L [id number], [id number] ####Rn Building: BROOKE RINCON ([id number])[facility] RODOLFO RITTMAN (SWRLAB)[address] [place] [address] [place] LYMPHOCYTES (10*3/UL) IN BLOOD BY MANUAL COUNT 0.8 10*3/uL Low 1.0-4.3 [facility] Comment on above: Performed By: #### L [id number], [id number] ####Rn Building: BROOKE RINCON ([id number])[facility] RODOLFO RITTMAN (SWRLAB)[address] [place] [address] [place] LYMPHOCYTES TOTAL PER COUNTED LEUKOCYTES BY MANUAL COUNT 3 Normal [facility] Comment on above: Performed By: #### L [id number], [id number] ####Rn Building: BROOKE RINCON ([id number])[facility] RODOLFO RITTMAN (SWRLAB)[address] [place] [address] [place] LYMPHOCYTES/100 LEUKOCYTES IN BLOOD BY MANUAL COUNT 3 % Low 15-45 [facility] Comment on above: Performed By: #### L [id number], [id number] ####Rn Building: BROOKE RINCON ([id number])[facility] RODOLFO RITTMAN (SWRLAB)[address] [place] [address] [place] MONOCYTES (10*3/UL) IN BLOOD BY MANUAL COUNT 1.9 10*3/uL High 0.0-0.9 [facility] Comment on above: Performed By: #### L [id number], [id number] ####Rn Building: BROOKE RINCON ([id number])[facility] RODOLFO RITTMAN (SWRLAB)[address] [place] [address] [place] MONOCYTES TOTAL PER COUNTED LEUKOCYTES BY MANUAL COUNT 7 Normal [facility] Comment on above: Performed By: #### L [id number], [id number] ####Rn Building: BROOKE RINCON ([id number])[facility] RODOLFO RITTMAN (SWRLAB)[address] [place] [address] [place] MONOCYTES/100 LEUKOCYTES IN BLOOD BY MANUAL COUNT 7 % Normal 5-13 [facility] Comment on above: Performed By: #### L [id number], [id number] ####Rn Building: BROOKE RINCON ([id number])CHRISTENA RODOLFO RITTMAN (SWRLAB)[address] [place] [address] [place] NEUTROPHILS (SEGS+BANDS) (10*3/UL) BY MANUAL COUNT 24.0 10*3/uL High 1.8-7.0 [facility] Comment on above: Performed By: #### L [id number], [id number] ####Rn Building: BROOKE RINCON ([id number])[facility] ROD[facility] (SWRLAB)[address] [place] [address] [place] NEUTROPHILS TOTAL PER COUNTED LEUKOCYTES BY MANUAL COUNT 89 Normal [facility] Comment on above: Performed By: #### Jaz [id number], [id number] ####Rn Building: BROOKE RINCON ([id number])[facility] (SWRLAB)[address] [place] [address] [place] PLATELET MORPHOLOGY IN BLOOD Normal Normal [facility] Comment on above: Performed By: #### Jaz [id number], [id number] ####Rn Building: BROOKE RINCON ([id number])[facility] (SWRLAB)[address] [place] [address] [place] RBC MORPHOLOGY IN BLOOD Normal Normal [facility] Comment on above: Performed By: #### Jaz [id number], [id number] ####Rn Building: BROOKE RINCON ([id number])[facility] (SWRLAB)[address] [place] [address] [place] SEGEMENTED NEUTROPHILS/100 LEUKOCYTES BY MANUAL COUNT 89 % High 38-82 [facility] Comment on above: Performed By: #### L [id number], [id number] ####Rn Building: BROOKE RINCON ([id number])[facility] R[facility]FO [facility]AN (SWRLAB)[address] TOXIC GRANULES PRESENCE IN BLOOD BY LIGHT MICROSCOPY (PRESENT) Present Abnormal (none) [facility] Comment on above: Performed By: #### L [id number], [id number] ####Rn Building: BROOKE RINCON ([id number])[facility] (SWRLAB)[address] [place] [address] UNCLASSIFIED CELLS (10*3/UL) IN BLOOD BY MANUAL COUNT 0.3 10*3/uL Normal [facility] Comment on above: Performed By: #### L [id number], [id number] ####Rn Building: BROOKE RINCON ([id number])[facility] RITTMAN (SWRLAB)[address] [place] [address] UNCLASSIFIED CELLS/100 LEUKOCYTES IN BLOOD 1.00 % Normal [facility] Comment on above: Performed By: #### L [id number], [id number] ####Rn Building: BROOKE RINCON ([id number])[facility] RITTMAN (SWRLAB)[address] [place] [address] Manual differential performe d Ql (Bld)on 01-25-2025 Basophils (Bld) [#/Vol] 0 10*3/uL 0.0 - 0.2 10*3/uL [facility] [employer] Basophils Manual 0 [facility] Basophils/100 WBC (Bld) 0 % 0 - 2 % [facility] [employer] Cells Counted Total (Bld) [#] 100 {cells} [facility] [employer] Differential Method Automated differenti al reported after manual slide review [facility] Eosinophils (Bld) [#/Vol] 0 10*3/uL 0.0 - 0.5 10*3/uL [facility] Eosinophils Manual 0 0 - 1 [facility] Eosinophils/100 WBC (Bld) 0 % 0 - 6 % [facility] Lymphocytes (Bld) [#/Vol] 0.8 10*3/uL Low 1.0 - 4.3 10*3/uL [facility] Lymphocytes Manual [address] [facility] Lymphocytes/100 WBC (Bld) 3 % Low 15 - 45 % [facility] Monocytes (Bld) [#/Vol] 1.9 10*3/uL High 0.0 - 0.9 10*3/uL [facility] Monocytes Manual 7 [facility] Monocytes/100 WBC (Bld) 7 % 5 - 13 % [facility] Neutrophils (Bld) [#/Vol] 24 10*3/uL High 1.8 - 7.0 10*3/uL [facility] Neutrophils Manual 89 [facility] Platelet morphology finding Nom (Bld) Normal [facility] RBC morphology finding Nom (Bld) Normal [facility] Segmented neutrophils/100 WBC (Bld) 89 % High 38 - 82 % [facility] Toxic granules LM Ql (Bld) Present Abnormal (none) [facility] Unclassified Cells % 1 % [facility] Unclassified Cells, Abs. 0.3 10*3/uL [facility] WBC corrected for nucl RBC (Bld) [#/Vol] 27 10*3/uL High 3.6 - 10.7 10*3/uL [facility] No Panel Informationon 01-25 Interpretation and review of laboratory results Normal [facility] Interpretation and review of laboratory results Abnormal [facility] Performed by: Rodrigo Garcia, [address] [place] [address] CLIA ID: [id number] [facility] No Panel InformationOrdered By: Keisha Aaron on 01-25-2025 Interpretation and review of laboratory results Abnormal [facility] T3 FREEon 01-25-2025 Free T3 [Mass/Vol] 2.25 pg/mL Normal 1.58-3.91 [facility] Comment on above: Performed By: #### L [id number] ####Rn Building: MUSHTAQ MAGUIRE ([id number])[facility] МАРИЯ (SBHLAB)[address] [place] [address] THYROID STIMULATING HORMONEo n 01-25-2025 THYROID STIMULATING HORMONE 1.44 uIU/mL Normal 0.35-4.94 [facility] Comment on above: Performed By: #### L [id number], [id number] ####Rn Building: BROOKE RINCON ([id number])[facility]ITAL[facility] GARCIA (SWRLAB)[address] 37on 01-12-2025 37 Normal [facility] No Panel Informationon 01-12 Jennifer Waldrop DPM 01/12/2025 10:15 AM Debridement Wound/Incision 09/18/24 Diabetic Ulcer Foot Right Performed by: Jennifer Waldrop DPM Authorized by: Jennifer Waldrop DPM Consent Consent obtained? verbal Consent given by: patient Risks discussed? procedural risks discussed Time out called at 01/12/2025 10:14 AM Immediately prior to the procedure a time out was called and the performing provider verified the correct patient, procedure, equipment, technical support 1 software engineer, and site/side marked as required. Debridement Details Performed by: physician Debridement type: surgical Level of debridement: subcutaneous tissue Pain control: lidocaine 2% Pain control administration type: topical Pre-debridement measurements Length (cm): 0.1 Width (cm): 0.1 Depth (cm): 0.1 Surface Area (cm^2): 0.01 Post-debridement measurements Length (cm): 0.2 Width (cm): 0.2 Depth (cm): 0.2 Percent debrided: 100% Surface Area (cm^2): 0.03 Area Debrided (cm^2): 0.03 Volume (cm^3): 0 Tissue and other material debrided: subcutaneous tissue Devitalized tissue debrided: biofilm, callus, fibrin and slough Instrument(s) utilized: blade Bleeding: small Hemostasis obtained with: pressure Procedural pain (0-10): 0 Post-procedural pain: 0 Response to treatment: procedure was tolerated well [facility] Progress Noteon 01-12-2025 Progress Note Normal [facility] 29on 01-05-2025 29 Encounter addended b y: Chiqui Davidson on: 01/05/2025 10:34 AM Actions taken: Flowsheet accepted [facility] 37on 01-05-2025 37 [facility] No Panel Informationon 01-05 Jennifer Waldrop DPM 10:25 AM Debridement Wound/Incision 09/18/24 Diabetic Ulcer Foot Right Performed by: Jennifer Waldrop DPM Authorized by: Jennifer Waldrop DPM Consent Consent obtained? verbal Consent given by: patient Risks discussed? procedural risks discussed Time out called at 01/05/2025 10:24 AM Immediately prior to the procedure a time out was called and the performing provider verified the correct patient, procedure, equipment, technical support 1 software engineer, and site/side marked as required. Debridement Details Performed by: physician Debridement type: surgical Level of debridement: subcutaneous tissue Pain control: lidocaine 2% Pain control administration type: topical Pre-debridement measurements Length (cm): 0.1 Width (cm): 0.1 Depth (cm): 0.1 Surface Area (cm^2): 0.01 Post-debridement measurements Length (cm): 0.3 Width (cm): 0.3 Depth (cm): 0.2 Percent debrided: 100% Surface Area (cm^2): 0.07 Area Debrided (cm^2): 0.07 Volume (cm^3): 0.01 Tissue and other material debrided: subcutaneous tissue Devitalized tissue debrided: biofilm, callus, fibrin and slough Instrument(s) utilized: curette Bleeding: small Hemostasis obtained with: pressure Procedural pain (0-10): 0 Post-procedural pain: 0 Response to treatment: procedure was tolerated well [facility] Progress Noteon 01-05-2025 Progress Note [facility] 36on 01-01-2025 36 [facility] 37on 12-29-2024 37 [facility] No Panel Informationon 12-29 Jennifer Waldrop DPM 11:22 AM Debridement Wound/Incision 09/18/24 Diabetic Ulcer Foot Right Performed by: Jennifer Waldrop DPM Authorized by: Jennifer Waldrop DPM Consent Consent obtained? verbal Consent given by: patient Risks discussed? procedural risks discussed Time out called at 12/29/2024 11:20 AM Immediately prior to the procedure a time out was called and the performing provider verified the correct patient, procedure, equipment, technical support 1 software engineer, and site/side marked as required. Debridement Details Performed by: physician Debridement type: surgical Level of debridement: subcutaneous tissue Pain control: lidocaine 2% Pain control administration type: topical Pre-debridement measurements Length (cm): 0.2 Width (cm): 0.2 Depth (cm): 0.1 Surface Area (cm^2): 0.03 Post-debridement measurements Length (cm): 0.3 Width (cm): 0.3 Depth (cm): 0.2 Percent debrided: 100% Surface Area (cm^2): 0.07 Area Debrided (cm^2): 0.07 Volume (cm^3): 0.01 Tissue and other material debrided: subcutaneous tissue Devitalized tissue debrided: biofilm, callus, fibrin and slough Instrument(s) utilized: blade Bleeding: small Hemostasis obtained with: pressure Procedural pain (0-10): 0 Post-procedural pain: 0 Response to treatment: procedure was tolerated well [facility] Progress Noteon 12-29-2024 Progress Note Normal [facility] 36on 12-24-2024 36 Good afternoon Tiffany , Can we get this patient resumed on javier 3 plus? I sent an electronic prescription to [facility] [place]. Thanks! Normal [facility] Progress Noteon 12-24-2024 Progress Note [facility] 36on 12-16-2024 36 Normal [facility] 37on 12-11-2024 37 [facility] No Panel Informationon 12-11 Nallely Alas DPM 12/11/2024 3:01 PM Debridement Wound/Incision 09/18/24 Diabetic Ulcer Foot Right Performed by: Nallely Alas DPM Authorized by: Nallely Alas DPM Consent Consent obtained? verbal Consent given by: patient Risks discussed? procedural risks discussed Debridement Details Performed by: physician Debridement type: surgical Level of debridement: subcutaneous tissue Pain control: lidocaine 2% Pre-debridement measurements Length (cm): 0.2 Width (cm): 0.3 Depth (cm): 0.1 Surface Area (cm^2): 0.06 Post-debridement measurements Length (cm): 1.4 Width (cm): 0.9 Depth (cm): 0.4 Percent debrided: 100% Surface Area (cm^2): 1.26 Area Debrided (cm^2): 1.26 Volume (cm^3): 0.5 Tissue and other material debrided: subcutaneous tissue Devitalized tissue debrided: callus, fibrin, necrotic debris and slough Instrument(s) utilized: curette and blade Bleeding: medium Hemostasis obtained with: pressure Procedural pain (0-10): 0 Post-procedural pain: 0 Response to treatment: procedure was tolerated well [facility] Progress Noteon 12-11-2024 Progress Note [facility] [id number] 12-10-2024 [id number] Patient Choice Patient Name: HANNA NELSON Date of : 1940 Normal [facility] 30on 12-05-2024 30 Normal [facility] Bacteria identified Cx Nom ( U)Ordered By: Kenya Baig on 12-05-2024 Interpretation and review of laboratory results Abnormal [facility] CBC (HEMOGRAM)on 12-05-2024 Erythrocyte distribution width (RBC) [Ratio] 14.1 % Normal 11.5-15.0 [facility] Comment on above: Performed By: #### L [id number] ####Rn Building: MUSHTAQ MAGUIRE ([id number])[facility] ([facility])[address] [place] [address] Hematocrit (Bld) [Volume fraction] 33.8 % Low 35.0-47.0 [facility] Comment on above: Performed By: #### L [id number] ####Rn Building: MUSHTAQ MAGUIRE ([id number])[facility] ([facility])[address] [place] [address] Hemoglobin (Bld) [Mass/Vol] 10.5 g/dL Low 11.7-16.0 [facility] Comment on above: Performed By: #### L [id number] ####Rn Building: MUSHTAQ MAGUIRE ([id number])[facility] ([facility])[address] [place] [address] MCH (RBC) [Entitic mass] 29.5 pg Normal 26.0-34.0 [facility] Comment on above: Performed By: #### L AB294 ####Rn Building: MUSHTAQ MAGUIRE ([id number])[facility] ([facility])[address] [place] [address] MCHC 31.1 % Normal 30.5-36.0 [facility] Comment on above: Performed By: #### L [id number] ####Rn Building: MUSHTAQ MAGUIRE ([id number])[facility] (SBHLAB)[address] MCV (RBC) [Entitic vol] 94.9 fL Normal 77.0-99.0 [facility] Comment on above: Performed By: #### L AB294 ####Rn Building: MUSHTAQ MAGUIRE ([id number])[facility] [place] (SBHLAB)[address] Platelet mean volume (Bld) [Entitic vol] 10.6 fL Normal 9.0-12.7 [facility] Comment on above: Performed By: #### L AB294 ####Rn Building: MUSHTAQ MAGUIRE ([id number])[facility] [place] (SBHLAB)[address] Platelets (Bld) [#/Vol] 250 10*3/uL Normal 140-440 [facility] Comment on above: Performed By: #### L [id number] ####Rn Building: MUSHTAQ MAGUIRE ([id number])[facility] [place] (SBHLAB)[address] [place] [address] RBC (Bld) [#/Vol] 3.56 10*6/uL Low 3.80-5.20 [facility] Comment on above: Performed By: #### L AB294 ####Rn Building: MUSHTAQ MAGUIRE ([id number])[facility] [place] (SBHLAB)[address] WBC (Bld) [#/Vol] 8.2 10*3/uL Normal 3.6-10.7 [facility] Comment on above: Performed By: #### L AB294 ####Rn Building: MUSHTAQ MAGUIRE ([id number])[facility] [place] (SBHLAB)[address] CBC panel Auto (Bld)Ordered By: Liss Chappell on 12-05-2024 Erythrocyte distribution width (RBC) [Ratio] 14.1 % 11.5 - 15.0 % [facility] Hematocrit (Bld) [Volume fraction] 33.8 % Low 35.0 - 47.0 % [facility] Hemoglobin (Bld) [Mass/Vol] 10.5 g/dL Low 11.7 - 16.0 g/dL [facility] Interpretation and review of laboratory results Abnormal [facility] MCH (RBC) [Entitic mass] 29.5 pg 26.0 - 34.0 pg [facility] MCHC (RBC) [Mass/Vol] 31.1 % 30.5 - 36.0 % [facility] MCV (RBC) [Entitic vol] 94.9 fL 77.0 - 99.0 fL [facility] Platelet mean volume (Bld) [Entitic vol] 10.6 fL 9.0 - 12.7 fL [facility] Platelets (Bld) [#/Vol] 250 10*3/uL 140 - 440 10*3/uL [facility] RBC (Bld) [#/Vol] 3.56 10*6/uL Low 3.80 - 5.20 10*6/uL [facility] WBC (Bld) [#/Vol] 8.2 10*3/uL 3.6 - 10.7 10*3/uL [facility] COMPREHENSIVE METABOLIC PANE David 12-05-2024 Albumin [Mass/Vol] 3.0 g/dL Low 3.4-4.8 [facility] Comment on above: Performed By: #### L AB103, LAB17 ####Rn Building: MUSHTAQ MAGUIRE ([id number])[facility] (SBHLAB)[address] ALP [Catalytic activity/Vol] 44 U/L Normal 40-150 [facility] Comment on above: Performed By: #### L AB103, LAB17 ####Rn Building: MUSHTAQ MAGUIRE ([id number])[facility] (SBHLAB)[address] ALT [Catalytic activity/Vol] 15 U/L Normal <30 [facility] Comment on above: Performed By: #### L AB103, LAB17 ####Rn Building: MUSHTAQ MAGUIRE ([id number])[facility] (SBHL[facility])[address] Anion gap [Moles/Vol] 10 mmol/L Normal 3-13 [facility] Comment on above: Performed By: #### L AB103, LAB17 ####Rn Building: MUSHTAQ MAGUIRE ([id number])[facility] (SBHLAB)[address] AST [Catalytic activity/Vol] 21 U/L Normal <34 [facility] Comment on above: Performed By: #### L AB103, LAB17 ####Rn Building: MUSTHAQ MAGUIRE ([id number])[facility] [place] (SBHLAB)[address] Bilirubin [Mass/Vol] 0.3 mg/dL Normal <1.2 [facility] Comment on above: Performed By: #### L AB103, LAB17 ####Rn Building: MUSHTAQ MAGUIRE ([id number])[facility] [place] (SBHLAB)[address] Calcium [Mass/Vol] 8.5 mg/dL Low 8.8-10.0 [facility] Comment on above: Performed By: #### L AB103, LAB17 ####Rn Building: MUSHTAQ MAGUIRE ([id number])[facility] [place] (SBHLAB)[address] Chloride [Moles/Vol] 112 mmol/L High 98-107 [facility] Comment on above: Performed By: #### L AB103, LAB17 ####Rn Building: MUSHTAQ MAGUIRE ([id number])[facility] [place] (SBHLAB)[address] [place] [address] [place] CO2 [Moles/Vol] 21 mmol/L Low 23-31 [facility] Comment on above: Performed By: #### L AB103, LAB17 ####Rn Building: MUSHTAQ MAGUIRE ([id number])[facility] [place] (SBHLAB)[address] [place] [address] [place] Creatinine [Mass/Vol] 1.40 mg/dL High 0.57-1.11 [facility] Comment on above: Performed By: #### L AB103, LAB17 ####Rn Building: MUSHTAQ MAGUIRE ([id number])[facility] (HLAB)[address] GLOMERULAR FILTRATION RATE ML/MIN/1.73 SQ M.PREDICTED 36.9 mL/min/1.73m*2 Low >60.0 [facility] Comment on above: Result Comment: Calc ulation based on the Chronic Kidney Disease Epidemiology Collaboration (CKD-EPI) equation refit without adjustment for race Performed By: #### L MECHELLE, LAB17 ####Rn Building: MUSHTAQ MAGUIRE ([id number])[facility] ([facility])[address] Glucose [Mass/Vol] 239 mg/dL High 82-115 [facility] Comment on above: Performed By: #### L AB103, LAB17 ####Rn Building: MUSHTAQ MAGUIRE ([id number])[facility] [place] [address] Potassium [Moles/Vol] 4.5 mmol/L Normal 3.5-5.1 [facility] Comment on above: Result Comment: [facility] potassium values may be up to 0.5 mmol/L lower than serum values. Performed By: #### L AB103, LAB17 ####Rn Building: MUSHTAQ MAGUIRE ([id number])[facility] (SBHLAB)[address] Protein [Mass/Vol] 6.0 g/dL Low 6.4-8.3 [facility] Comment on above: Performed By: #### L AB103, LAB17 ####Rn Building: MUSHTAQ MAGUIRE ([id number])[facility] (SB[facility])[address] Sodium [Moles/Vol] 143 mmol/L Normal 136-145 [facility] Comment on above: Performed By: #### L AB103, LAB17 ####Rn Building: MUSHTAQ OMALLEYDIANA ([id number])[facility] (SBHLAB)[address] Urea nitrogen [Mass/Vol] 47 mg/dL High 9- [facility] Comment on above: Performed By: #### L AB103, LAB17 ####Rn Building: MUSHTAQ MAGUIRE ([id number])[facility] (SB[facility])[address] Comprehensive metabolic 1998 panelon 12-05-2024 Albumin [Mass/Vol] 3 g/dL Low 3.4 - 4.8 g/dL [facility] ALP [Catalytic activity/Vol] 44 U/L 40 - 150 U/L [facility] ALT [Catalytic activity/Vol] 15 U/L NINF - 30 U/L [facility] Anion gap [Moles/Vol] 10 mmol/L 3 - 13 mmol/L [facility] AST [Catalytic activity/Vol] 21 U/L NINF - 34 U/L [facility] Bilirubin [Mass/Vol] 0.3 mg/dL NINF - 1.2 mg/dL [facility] Calcium [Mass/Vol] 8.5 mg/dL Low 8.8 - 10. 0 mg/dL [facility] Chloride [Moles/Vol] 112 mmol/L High 98 - 10 7 mmol/L [facility] CO2 [Moles/Vol] 21 mmol/L Low 23 - 31 mmol/L [facility] Creatinine [Mass/Vol] 1.4 mg/dL High 0.57 - 1.11 mg/dL [facility] GFR/1.73 sq M.predicted (S/P/Bld) [Vol rate/Area] 36.9 mL/min Low - PINF [facility] Comment on above: Calculation based on the Chronic Kidney Disease Epidemiology Collaboration (CKD-EPI) equation refit without adjustment for race Glucose [Mass/Vol] 239 mg/dL High 82 - 115 mg/dL [facility] Potassium [Moles/Vol] 4.5 mmol/L 3.5 - 5.1 mmol/L [facility] Comment on above: Plasma potassium ashley ues may be up to 0.5 mmol/L lower than serum values. Protein [Mass/Vol] 6 g/dL Low 6.4 - 8.3 g/dL [facility] Sodium [Moles/Vol] 143 mmol/L 136 - 145 mmol/L [facility] Urea nitrogen [Mass/Vol] 47 mg/dL High 9 - 23 mg/dL [facility] Laboratory - Chemistry and C hemistry - challengeon 12-05-2024 Glucose [Mass/Vol] 268 mg/dL High 70 - 100 mg/dL [facility] Glucose [Mass/Vol] 216 mg/dL High 70 - 100 mg/dL [facility] Magnesium [Mass/Vol] 1.5 mg/dL Low 1.6 - 2 .6 mg/dL [facility] - Microbiology an d Antimicrobial susceptibilityOrdered By: Kenya Baig on 12-05-2024 Bacteria identified Cx Nom (U) >100,000 CFU/mL Klebsiella species Abnormal [facility] MAGNESIUMon 12-05-2024 Magnesium [Mass/Vol] 1.5 mg/dL Low 1.6-2.6 [facility] Comment on above: Result Comment: CARLTON Geiger COMMENTS:Higher values can be expected in females during menses. Performed By: #### L AB103, LAB17 ####Rn Building: MUSHTAQ MAGUIRE ([id number])[facility] М[facility] (SBHLAB)[address] [place] [address] Magnesium [Mass/Vol]on 12-05 Higher values can be expected in females during menses. [facility] No Panel Informationon 12-05 Interpretation and review of laboratory results Abnormal [facility] Performed by: [facility], [address] [facility] [address] CLIA ID: [id number] [facility] Interpretation and review of laboratory results Abnormal [facility] Performed by: [facility], [address] [facility] [address] CLIA ID: [id number] [facility] Interpretation and review of laboratory results Abnormal [facility] 30on 12-04-2024 30 Normal [facility] 30 Normal [facility] CBC (HEMOGRAM)on 12-04-2024 Erythrocyte distribution width (RBC) [Ratio] 13.9 % Normal 11.5-15.0 [facility] Comment on above: Performed By: #### L AB294 ####Rn Building: MUSHTAQ OMALLEYDIANA ([id number])[facility] [place] ([facility])[address] [place] [address] Hematocrit (Bld) [Volume fraction] 38.4 % Normal 35.0-47.0 [facility] Comment on above: Performed By: #### L AB294 ####Rn Building: MUSHTAQ OMALLEYDIANA ([id number])[facility] ([facility])[address] [place] [address] Hemoglobin (Bld) [Mass/Vol] 12.4 g/dL Normal 11.7-16.0 [facility] Comment on above: Performed By: #### L AB294 ####Rn Building: MUSHTAQ OMALLEYDIANA ([id number])[facility] ([facility])[address] [place] [address] MCH (RBC) [Entitic mass] 29.9 pg Normal 26.0-34.0 [facility] Comment on above: Performed By: #### L AB294 ####Rn Building: MUSHTAQ MAGUIRE ([id number])[facility] ([facility])[address] [place] [address] MCHC 32.3 % Normal 30.5-36.0 [facility] Comment on above: Performed By: #### L AB294 ####Rn Building: MUSHTAQ MAGUIRE ([id number])[facility] CENTER)[address] [place] [address] MCV (RBC) [Entitic vol] 92.5 fL Normal 77.0-99.0 [facility] Comment on above: Performed By: #### L [id number] ####Rn Building: MUSHTAQ MAGUIRE ([id number])[facility] ([facility])[address] [place] [address] Platelet mean volume (Bld) [Entitic vol] 10.4 fL Normal 9.0-12.7 [facility] Comment on above: Performed By: #### L [id number] ####Rn Building: MUSHTAQ HOLMCER ([id number])[facility] (SBHLAB)[address] Platelets (Bld) [#/Vol] 303 10*3/uL Normal 140-440 [facility] Comment on above: Performed By: #### L [id number] ####Rn Building: MUSHTAQ MAGUIRE ([id number])[facility] (SBHLAB)[address] RBC (Bld) [#/Vol] 4.15 10*6/uL Normal 3.80-5.20 [facility] Comment on above: Performed By: #### L [id number] ####Rn Building: MUSHTAQ MAGUIRE ([id number])[facility] (SBHLAB)[address] [place] [address] WBC (Bld) [#/Vol] 9.7 10*3/uL Normal 3.6-10.7 [facility] Comment on above: Performed By: #### L [id number] ####Rn Building: MUSHTAQ MAGUIRE ([id number])[facility] ([facility])[address] CBC panel Auto (Bld)on 12-04 Erythrocyte distribution width (RBC) [Ratio] 13.9 % 11.5 - 15.0 % [facility] Hematocrit (Bld) [Volume fraction] 38.4 % 35.0 - 47.0 % [facility] Hemoglobin (Bld) [Mass/Vol] 12.4 g/dL 11.7 - 16.0 g/dL [facility] Interpretation and review of laboratory results Normal [facility] MCH (RBC) [Entitic mass] 29.9 pg 26.0 - 34.0 pg [facility] MCHC (RBC) [Mass/Vol] 32.3 % 30.5 - 36.0 % [facility] MCV (RBC) [Entitic vol] 92.5 fL 77.0 - 99.0 fL [facility] Platelet mean volume (Bld) [Entitic vol] 10.4 fL 9.0 - 12.7 fL [facility] Platelets (Bld) [#/Vol] 303 10*3/uL 140 - 440 10*3/uL [facility] RBC (Bld) [#/Vol] 4.15 10*6/uL 3.80 - 5.20 10*6/uL [facility] WBC (Bld) [#/Vol] 9.7 10*3/uL 3.6 - 10.7 10*3/uL [facility] COMPREHENSIVE METABOLIC PANE David 12-04-2024 Albumin [Mass/Vol] 3.1 g/dL Low 3.4-4.8 [facility] Comment on above: Performed By: #### L AB17, [id number] ####Rn Building: MUSHTAQ MAGUIRE ([id number])[facility] (SBHLAB)[address] ALP [Catalytic activity/Vol] 51 U/L Normal 40-150 [facility] Comment on above: Performed By: #### L AB17, [id number] ####Rn Building: MUSHTAQ MAGUIRE ([id number])[facility] [place] (SBHLAB)[address] ALT [Catalytic activity/Vol] 16 U/L Normal <30 [facility] Comment on above: Performed By: #### L AB17, [id number] ####Rn Building: MUSHTAQ MAGUIRE ([id number])[facility] [place] (SBHLAB)[address] Anion gap [Moles/Vol] 9 mmol/L Normal 3-13 [facility] Comment on above: Performed By: #### L AB17, [id number] ####Rn Building: MUSHTAQ MAGUIRE ([id number])[facility] [place] (SBHLAB)[address] AST [Catalytic activity/Vol] 19 U/L Normal <34 [facility] Comment on above: Performed By: #### L AB17, [id number] ####Rn Building: MUSHTAQ MAGUIRE ([id number])RODRIGO [place] (SBHLAB)[address] Bilirubin [Mass/Vol] 0.3 mg/dL Normal <1.2 [facility] Comment on above: Performed By: #### L AB17, [id number] ####Rn Building: MUSHTAQ MAGUIRE ([id number])[facility] [place] (SBHLAB)[address] Calcium [Mass/Vol] 8.6 mg/dL Low 8.8-10.0 [facility] Comment on above: Performed By: #### L AB17, [id number] ####Rn Building: MUSTHAQ MAGUIRE ([id number])[facility] [place] (SBHLAB)[address] Chloride [Moles/Vol] 110 mmol/L High 98-107 [facility] Comment on above: Performed By: #### L AB17, [id number] ####Rn Building: MUSHTAQ MAGUIRE ([id number])[facility] [place] (SBHLAB)[address] CO2 [Moles/Vol] 19 mmol/L Low 23-31 [facility] Comment on above: Performed By: #### L AB17, [id number] ####Rn Building: MUSHTAQ MAGUIRE ([id number])[facility] [place] (SBHLAB)[address] Creatinine [Mass/Vol] 1.28 mg/dL High 0.57-1.11 [facility] Comment on above: Performed By: #### L AB17, [id number] ####Rn Building: MUSHTAQ MAGUIRE ([id number])[facility]ITAL[facility] [place] (SBHLAB)[address] [place] [address] [place] GLOMERULAR FILTRATION RATE ML/MIN/1.73 SQ M.PREDICTED 41.1 mL/min/1.73m*2 Low >60.0 [facility] Comment on above: Result Comment: Calc ulation based on the Chronic Kidney Disease Epidemiology Collaboration (CKD-EPI) equation refit without adjustment for race Performed By: #### L AB17, [id number] ####Rn Building: MUSHTAQ MAGUIRE ([id number])[facility] [place] (SBHLAB)[address] Glucose [Mass/Vol] 251 mg/dL High 82-115 [facility] Comment on above: Performed By: #### L AB17, [id number] ####Rn Building: MUSHTAQ MAGUIRE ([id number])[facility] (SBHLAB)[address] Potassium [Moles/Vol] 4.5 mmol/L Normal 3.5-5.1 [facility] Comment on above: Result Comment: [facility] potassium values may be up to 0.5 mmol/L lower than serum values. Performed By: #### L AB17, [id number] ####Rn Building: MUSHTAQ OMALLEYDIANA ([id number])[facility] (SBHLAB)[address] Protein [Mass/Vol] 6.3 g/dL Low 6.4-8.3 [facility] Comment on above: Performed By: #### L AB17, [id number] ####Rn Building: MUSHTAQ MAGUIRE ([id number])[facility] (SBHLAB)[address] Sodium [Moles/Vol] 138 mmol/L Normal 136-145 [facility] Comment on above: Performed By: #### L AB17, [id number] ####Rn Building: MUSHTAQ MAGUIRE ([id number])[facility] [place] (SBHLAB)[address] [place] [address] [place] Urea nitrogen [Mass/Vol] 40 mg/dL High 9-23 [facility] Comment on above: Performed By: #### L AB17, [id number] ####Rn Building: MUSHTAQ OMALLEYDIANA ([id number])[facility] (SBHLAB)[address] Comprehensive metabolic 1998 panelon 12-04-2024 Albumin [Mass/Vol] 3.1 g/dL Low 3.4 - 4.8 g/dL [facility] ALP [Catalytic activity/Vol] 51 U/L 40 - 150 U/L [facility] ALT [Catalytic activity/Vol] 16 U/L NINF - 30 U/L [facility] Anion gap [Moles/Vol] 9 mmol/L 3 - 13 mmol/L [facility] AST [Catalytic activity/Vol] 19 U/L NINF - 34 U/L [facility] Bilirubin [Mass/Vol] 0.3 mg/dL NINF - 1.2 mg/dL [facility] Calcium [Mass/Vol] 8.6 mg/dL Low 8.8 - 10. 0 mg/dL [facility] Chloride [Moles/Vol] 110 mmol/L High 98 - 10 7 mmol/L [facility] CO2 [Moles/Vol] 19 mmol/L Low 23 - 31 mmol/L [facility] Creatinine [Mass/Vol] 1.28 mg/dL High 0.57 - 1.11 mg/dL [facility] GFR/1.73 sq M.predicted (S/P/Bld) [Vol rate/Area] 41.1 mL/min Low - PINF [facility] Comment on above: Calculation based on the Chronic Kidney Disease Epidemiology Collaboration (CKD-EPI) equation refit without adjustment for race Glucose [Mass/Vol] 251 mg/dL High 82 - 115 mg/dL [facility] Interpretation and review of laboratory results Abnormal [facility] Potassium [Moles/Vol] 4.5 mmol/L 3.5 - 5.1 mmol/L [facility] Comment on above: Plasma potassium ashley ues may be up to 0.5 mmol/L lower than serum values. Protein [Mass/Vol] 6.3 g/dL Low 6.4 - 8.3 g/dL [facility] Sodium [Moles/Vol] 138 mmol/L 136 - 145 mmol/L [facility] Urea nitrogen [Mass/Vol] 40 mg/dL High 9 - 23 mg/dL [facility] Consulton 12-04-2024 Consult Normal [facility] Laboratory - Chemistry and C hemistry - challengeon 12-04-2024 Glucose [Mass/Vol] 379 mg/dL High 70 - 100 mg/dL [facility] Glucose [Mass/Vol] 301 mg/dL High 70 - 100 mg/dL [facility] Magnesium [Mass/Vol] 1.5 mg/dL Low 1.6 - 2 .6 mg/dL [facility] Glucose [Mass/Vol] mg/dL High 70 - 100 mg/dL [facility] Comment on above: Caregiver Notified; Glucose [Mass/Vol] 294 mg/dL High 70 - 100 mg/dL [facility] MAGNESIUMon 12-04-2024 Magnesium [Mass/Vol] 1.5 mg/dL Low 1.6-2.6 [facility] Comment on above: Result Comment: CARLTON Geiger COMMENTS:Higher values can be expected in females during menses. Performed By: #### L AB17, [id number] ####Rn Building: MUSHTAQ MAGUIRE ([id number])RODRIGO HSIEH (SBHLAB)[address] [place] [address] Magnesium [Mass/Vol]on 12-04 Interpretation and review of laboratory results Abnormal [facility] Higher values can be expected in females during menses. [facility] [employer] [facility] No Panel Informationon 12-04 Interpretation and review of laboratory results Abnormal [facility] Performed by: [facility], [address] [place] [address] CLIA ID: [id number] [facility] Interpretation and review of laboratory results Abnormal [facility] Performed by: [facility], [address] [place] [address] CLIA ID: [id number] [facility] Interpretation and review of laboratory results Abnormal [facility] Performed by: [facility], [address] [place] [address] 13743 CLIA ID: [id number] [facility] Interpretation and review of laboratory results Abnormal [facility] Performed by: [facility], [address] [place] [address] CLIA ID: [id number] [facility] Progress Noteon 12-04-2024 Progress Note Normal [facility] Progress Note Normal [facility] Progress Note Normal [facility] Progress Note Normal [facility] Progress Note Normal [facility] 30on 12-03-2024 30 Normal [facility] 30 Normal [facility] [id number] 12-03-2024 [id number] Normal [facility] [id number] 12-03-2024 [id number] Normal [facility] CRP [Mass/Vol]on 12-03-2024 Interpretation and review of laboratory results Normal [facility] Consulton 12-03-2024 Consult Normal [facility] Consult Normal [facility] ECG 12-LEADon 12-03-2024 ECG 12-LEAD IMPRESSION: Atrial fibrillation Borderline left axis deviation Borderline T wave abnormalities Borderline prolonged QT interval No previous ECG available for comparison Electronically Signed On 12-03-2024 10:10:35 EDT by Vero Byrd Normal [facility] ED Nursing Noteon 12-03-2024 ED Nursing Note Phoned [facility] 2E. Hand off report given to KENNA Chavez. Normal [facility] Laboratory - Chemistry and C hemistry - challengeon 12-03-2024 Glucose [Mass/Vol] 316 mg/dL High 70 - 100 mg/dL [facility] Glucose [Mass/Vol] 303 mg/dL High 70 - 100 mg/dL [facility] Procalcitonin [Mass/Vol] 0.07 ng/mL High [facility] - 0.07 ng/mL [facility] CRP [Mass/Vol] 3.5 mg/L [facility] - 5.0 mg/L [facility] Average glucose Estimated from glycated hemoglobin (Bld) [Mass/Vol] 212 mg/dL [facility] Glucose [Mass/Vol] 220 mg/dL High 70 - 100 mg/dL [facility] Glucose [Mass/Vol] 126 mg/dL High 70 - 100 mg/dL [facility] Glucose [Mass/Vol] 220 mg/dL High 70 - 100 mg/dL [facility] Laboratory - Hematology and Cell countson 12-03-2024 HbA1c (Bld) [Mass fraction] 9 % High [facility] Comment on above: Normal less than 5.7 % Prediabetes 5.7% to 6.4% Diabetes 6.5% or higher --HgbA1C levels may not be accurate in patients who have renal disease, received recent blood transfusions, are anemic, or who have dyshemoglobinemia. No Panel Informationon 12-03 Interpretation and review of laboratory results Abnormal [facility] Performed by: [facility], [address] [place] [address] CLIA ID: [id number] [facility] [employer] [facility] Interpretation and review of laboratory results Abnormal [facility] Performed by: [facility], [address] [place] [address] CLIA ID: [id number] [facility] [employer] [facility] Interpretation and review of laboratory results Abnormal [facility] HbA1c values of 5.7- 6.4 percent indicate an increased risk for developing diabetes mellitus. HbA1c values greater than or equal to 6.5 percent are diagnostic of diabetes mellitus. For diagnosis of diabetes in individuals without unequivocal hyperglycemia, results should be confirmed by repeat testing. [facility] [employer] [facility] Interpretation and review of laboratory results Abnormal [facility] [employer] Performed by: [facility], [address] [place] [address] CLIA ID: [id number] [facility] [employer] [facility] [employer] Atrial fibrillation Borderline left axis deviation Borderline T wave abnormalities Borderline prolonged QT interval No previous ECG available for comparison Electronically Signed On 12-03-2024 10:10:35 EDT by Vero Byrd CV Vero Swann MD - 12/03/2024 IMPRESSION: Atrial fibrillation Borderline left axis deviation Borderline T wave abnormalities Borderline prolonged QT interval No previous ECG available for comparison Electronically Signed On 12-03-2024 10:10:35 EDT by Vero Byrd [facility] Interpretation and review of laboratory results Abnormal [facility] [employer] Performed by: [facility], [address] [place] [address] CLIA ID: [id number] [facility] [employer] [facility] [employer] Interpretation and review of laboratory results Abnormal [facility] [employer] Performed by: [facility], [address] [place] [address] CLIA ID: [id number] [facility] [employer] [facility] [employer] No Panel InformationOrdered By: Vero Byrd on 12-03-2024 P [place] 0 degrees [employer] Work Phone: [place] Interval 0 ms [employer] Work Phone: QRS [place] -21 degrees [employer] Work Phone: QRSD Interval 88 ms [employer] Work Phone: QT Interval 361 ms [employer] Work Phone: QTC Interval 493 ms [facility] [employer] Work Phone: T Wave [place] 11 degrees [facility] [employer] Work Phone: [facility] [employer] Work Phone: Nursing Noteon 12-03-2024 Nursing Note Normal [facility] Nursing Note Pt a fib RVR - susta ining HR 110-130s. Pt does have history of a fib. Dr Cooper notified via Secure Chat. Normal [facility] Nursing Note Normal [facility] Procalcitonin [Mass/Vol]on 0 12-03-2024 Interpretation and review of laboratory results Abnormal [facility] PCT <0.50 = Low risk of severe sepsis and/or septic shock. PCT >2.00 = High risk of severe sepsis and/or septic shock. [facility] Progress Noteon 12-03-2024 Progress Note Normal [facility] Progress Note Normal [facility] US Kidneyon 12-03-2024 No hydronephrosis or nephrolithiasis. Minimal intraluminal debris in the urinary bladder. Report Dictated on Electronically Signed By: Patel Ortiz MD Electronically Signed Date/Time: 12/03/2024 12:37 PM [facility] [employer] Patient Name: HANNA NELSON : 1940 Exam Date/Time: 12/03/2024 12:02 Procedure: US RENAL COMPLETE Ordering Provider: RODRIGUEZ MAHAVEER Reason For Exam: UTI, recurrent/complicated (Female) RENAL ULTRASOUND CLINICAL INDICATION: Urinary tract infection, recurrent/complicated (Female) Sonographic images of the bilateral kidneys and bladder were obtained. COMPARISON: None. FINDINGS: RIGHT KIDNEY: Size: 12.5 cm Cortex: Normal cortical thickness and echogenicity. Hydronephrosis: None Calculi: None Cysts: 3.9 cm simple upper pole cyst is benign and of no clinical significance. LEFT KIDNEY: Size: 10.3 cm Cortex: Normal cortical thickness and echogenicity. Hydronephrosis: None Calculi: None Cysts: 1.4 cm cyst in the interpolar cortex which is simple and does not require follow-up BLADDER: The bladder is grossly unremarkable aside from minimal debris in the bladder lumen. Other: No mass or fluid collection is seen adjacent to the kidneys. [facility] [address] [facility] Patel Ortiz M D - 12/03/2024 Patient Name: HANNA NELSON : 1940 Exam Date/Time: 12/03/2024 12:02 Procedure: US RENAL COMPLETE Ordering Provider: RODRIGUEZ MAHAVEER Reason For Exam: UTI, recurrent/complicated (Female) RENAL ULTRASOUND CLINICAL INDICATION: Urinary tract infection, recurrent/complicated (Female) Sonographic images of the bilateral kidneys and bladder were obtained. COMPARISON: None. FINDINGS: RIGHT KIDNEY: Size: 12.5 cm Cortex: Normal cortical thickness and echogenicity. Hydronephrosis: None Calculi: None Cysts: 3.9 cm simple upper pole cyst is benign and of no clinical significance. LEFT KIDNEY: Size: 10.3 cm Cortex: Normal cortical thickness and echogenicity. Hydronephrosis: None Calculi: None Cysts: 1.4 cm cyst in the interpolar cortex which is simple and does not require follow-up BLADDER: The bladder is grossly unremarkable aside from minimal debris in the bladder lumen. Other: No mass or fluid collection is seen adjacent to the kidneys. IMPRESSION: No hydronephrosis or nephrolithiasis. Minimal intraluminal debris in the urinary bladder. Report Dictated on Electronically Signed By: Patel Ortiz MD Electronically Signed Date/Time: 12/03/2024 12:37 PM EDT [employer] [facility] [employer] Radiology Study observation (narrative) [employer] [facility] [employer] US KidneyOrdered By: Patel Ortiz on 12-03-2024 [employer] Work Phone: US RENAL COMPLETEon 12-04-19 25 US RENAL COMPLETE Normal [facility] Vital signsOrdered By: Safia Byrd on 12-03-2024 Heart rate 112 /min bpm [employer] Phone: BETA HYDROXYBUTYRATEon 12-02 BETA HYDROXYBUTYRATE 7.7 mg/dL High <=2.8 [facility] Comment on above: Performed By: #### L AB149, [id number], [id number], [id number] ####Rn Building: BROOKE RINCON ([id number])[facility]SM[facility] (SWRLAB)[address] [place] [address] C-REACTIVE PROTEINon 025 CRP [Mass/Vol] 3.5 mg/L Normal <5.0 [facility] Comment on above: Performed By: #### L AB149, LAB17, [id number], [id number] ####Rn Building: BROOKE RINCON ([id number])[facility] OSMINT[facility] (SWRLAB)[address] [place] [address] CBC W Auto Differential pane l (Bld)on 12-02-2024 Basophils (Bld) [#/Vol] 0 10*3/uL 0.0 - 0.2 10*3/uL [facility] Basophils/100 WBC (Bld) 0.6 % 0.0 - 2.0 % [facility] Eosinophils (Bld) [#/Vol] 0.5 10*3/uL 0.0 - 0.5 10*3/uL [facility] Eosinophils/100 WBC (Bld) 7.1 % High 0.0 - 6.0 % [facility] Erythrocyte distribution width (RBC) [Ratio] 13.4 % 11.5 - 15.0 % [facility] Hematocrit (Bld) [Volume fraction] 36.9 % 35.0 - 47.0 % [facility] Hemoglobin (Bld) [Mass/Vol] 12.5 g/dL 11.7 - 16.0 g/dL [facility] Immature granulocytes (Bld) [#/Vol] 0.1 10*3/uL High NINF - 0.1 10*3/uL [facility] [employer] Immature granulocytes/100 WBC (Bld) 2 % 0.0 - 2.0 % [facility] Interpretation and review of laboratory results Abnormal [facility] Lymphocytes (Bld) [#/Vol] 1.3 10*3/uL 1.0 - 4.3 10*3/uL [facility] Lymphocytes/100 WBC (Bld) 18.1 % 15.0 - 45.0 % [facility] MCH (RBC) [Entitic mass] 30.1 pg 26.0 - 34.0 pg [facility] MCHC (RBC) [Mass/Vol] 33.9 % 30.5 - 36.0 % [facility] MCV (RBC) [Entitic vol] 88.9 fL 77.0 - 99.0 fL [facility] Monocytes (Bld) [#/Vol] 0.6 10*3/uL 0.0 - 0.9 10*3/uL [facility] Monocytes/100 WBC (Bld) 9 % 5.0 - 13.0 % [facility] Neutrophils (Bld) [#/Vol] 4.4 10*3/uL 1.8 - 7.5 10*3/uL [facility] Neutrophils/100 WBC (Bld) 63.2 % 38.0 - 82.0 % [facility] Nucleated RBC/100 WBC (Bld) [Ratio] 0 % [facility] Platelet mean volume (Bld) [Entitic vol] 10.3 fL 9.0 - 12.7 fL [facility] Comment on above: MPV is a calculated measurement using platelet volume ratio Platelets (Bld) [#/Vol] 276 10*3/uL 140 - 440 10*3/uL [facility] RBC (Bld) [#/Vol] 4.15 10*6/uL 3.80 - 5.20 10*6/uL [facility] WBC (Bld) [#/Vol] 6.9 10*3/uL 3.6 - 10.7 10*3/uL [facility] CBC WITH AUTO DIFFERENTIALon 12-02-2024 Basophils (Bld) [#/Vol] 0.0 10*3/uL Normal 0.0-0.2 [facility] Comment on above: Performed By: #### L [id number] ####Rn Building: BROOKE RINCON ([id number])[facility] RODOLFO GARCIA ([facility])[address] [place] [address] Basophils/100 WBC (Bld) 0.6 % Normal 0.0-2.0 [facility] Comment on above: Performed By: #### L [id number] ####Rn Building: BROOKE RINCON ([id number])[facility] REYNOLDS [facility] (SWRLAB)[address] [place] [address] Eosinophils (Bld) [#/Vol] 0.5 10*3/uL Normal 0.0-0.5 [facility] Comment on above: Performed By: #### L [id number] ####Rn Building: BROOKE RINCON ([id number])[facility]ITAL[facility] REYNOLDS [place] (SWRLAB)[address] [place] [address] Eosinophils/100 WBC (Bld) 7.1 % High 0.0-6.0 [facility] Comment on above: Performed By: #### L [id number] ####Rn Building: BROOKE RINCON ([id number])[facility] REYNOLDS [place] (SWRLAB)[address] [place] [address] Erythrocyte distribution width (RBC) [Ratio] 13.4 % Normal 11.5-15.0 [facility] Comment on above: Performed By: #### L [id number] ####Rn Building: BROOKE RINCON ([id number])[facility]ITAL[facility] REYNOLDS [place] (SWRLAB)[address] [place] [address] Hematocrit (Bld) [Volume fraction] 36.9 % Normal 35.0-47.0 [facility] Comment on above: Performed By: #### L [id number] ####Rn Building: BROOKE RINCON ([id number])[facility] REYNOLDS [place] (SWRLAB)[address] [place] [address] Hemoglobin (Bld) [Mass/Vol] 12.5 g/dL Normal 11.7-16.0 [facility] Comment on above: Performed By: #### L [id number] ####Rn Building: BROOKE RINCON ([id number])[facility] REYNOLDS [place] (SWRLAB)[address] [place] [address] IMMATURE GRANS % 2.0 % Normal 0.0-2.0 [facility] Comment on above: Performed By: #### L [id number] ####Rn Building: BROOKE RINCON ([id number])[facility] REYNOLDS [facility] (SWRLAB)[address] [place] [address] IMMATURE GRANS ABSOLUTE 0.1 10*3/uL High <0.1 [facility] Comment on above: Performed By: #### L [id number] ####Rn Building: BOROKE RINCON ([id number])[facility] REYNOLDS [facility]AN (SWRLAB)[address] [place] [address] Lymphocytes (Bld) [#/Vol] 1.3 10*3/uL Normal 1.0-4.3 [facility] Comment on above: Performed By: #### L [id number] ####Rn Building: BROOKE RINCON ([id number])[facility] REYNOLDS [facility]TMAN (SWRLAB)[address] [place] [address] Lymphocytes/100 WBC (Bld) 18.1 % Normal 15.0-45.0 [facility] Comment on above: Performed By: #### L [id number] ####Rn Building: BROOKE RINCON ([id number])[facility] REYNOLDS RITTMAN (SWRLAB)[address] [place] [address] MCH (RBC) [Entitic mass] 30.1 pg Normal 26.0-34.0 [facility] Comment on above: Performed By: #### L [id number] ####Rn Building: BROOKE RINCON ([id number])[facility]Jul[facility] REYNOLDS RITTMAN (SWRLAB)[address] [place] [address] MCHC 33.9 % Normal 30.5-36.0 [facility] Comment on above: Performed By: #### L [id number] ####Rn Building: BROOKE RINCON ([id number])[facility] REYNOLDS RITTMAN (SWRLAB)[address] [place] [address] MCV (RBC) [Entitic vol] 88.9 fL Normal 77.0-99.0 [facility] Comment on above: Performed By: #### L [id number] ####Rn Building: BROOKE RINCON ([id number])RODRIGO REYNOLDS RITTMAN (SWRLAB)[address] [place] [address] [place] Monocytes (Bld) [#/Vol] 0.6 10*3/uL Normal 0.0-0.9 [facility] Comment on above: Performed By: #### L [id number] ####Rn Building: BROOKE RINCON ([id number])[facility] RODOLFO RITTMAN (SWRLAB)[address] [place] [address] [place] Monocytes/100 WBC (Bld) 9.0 % Normal 5.0-13.0 [facility] Comment on above: Performed By: #### L [id number] ####Rn Building: BROOKE RINCON ([id number])[facility] RODOLFO RITTMAN (SWRLAB)[address] [place] [address] [place] NEUTROPHILS ABSOLUTE 4.4 10*3/uL Normal 1.8-7.5 [facility] Comment on above: Performed By: #### L [id number] ####Rn Building: BROOKE RINCON ([id number])[facility] REYNOLDS RITTMAN (SWRLAB)[address] [place] [address] [place] Neutrophils/100 WBC (Bld) 63.2 % Normal 38.0-82.0 [facility] Comment on above: Performed By: #### L [id number] ####Rn Building: BROOKE RINCON ([id number])[facility] RODOLFO RITTMAN (SWRLAB)[address] [place] [address] [place] NRBC 0.0 /100 WBCs Normal 0.0-2.0 [facility] Comment on above: Performed By: #### L [id number] ####Rn Building: BROOKE RINCON ([id number])[facility]Juliana MEADRODOLFO RITTMAN (SWRLAB)[address] [place] [address] [place] Platelet mean volume (Bld) [Entitic vol] 10.3 fL Normal 9.0-12.7 [facility] Comment on above: Result Comment: MPV is a calculated measurement using platelet volume ratio Performed By: #### L [id number] ####Rn Building: BROOKE RINCON ([id number])[facility] REYNOLDS RITTMAN (SWRLAB)[address] [place] [address] Platelets (Bld) [#/Vol] 276 10*3/uL Normal 140-440 [facility] Comment on above: Performed By: #### L [id number] ####Rn Building: BROOKE RINCON ([id number])[facility] REYNOLDS RITTMAN (SWRLAB)[address] [place] [address] RBC (Bld) [#/Vol] 4.15 10*6/uL Normal 3.80-5.20 [facility] Comment on above: Performed By: #### L [id number] ####Rn Building: BROOKE RINCON ([id number])[facility]Jul[facility] REYNOLDS RITTMAN (SWRLAB)[address] [place] [address] WBC (Bld) [#/Vol] 6.9 10*3/uL Normal 3.6-10.7 [facility] Comment on above: Performed By: #### L [id number] ####Rn Building: BROOKE RINCON ([id number])[facility]ITALJul[facility] SOLORIOTMAN (SWRLAB)[address] [place] [address] COMPLETE URINALYSISon 2024 BACTERIA (#/HPF) IN URINE Loaded Abnormal Negative [facility] Comment on above: Performed By: #### L [id number] ####Rn Building: BROOKE RINCON ([id number])[facility] (SACLAB)[address] [place] [address]#### [id number] ####Rn Building: BROOKE RINCON ([id number])[facility]ITALJul[facility] REYNOLDS RITTMAN (SWRLAB)[address] [place] [address] BILIRUBIN, TOTAL PRESENCE IN URINE Negative Normal Negative [facility] Comment on above: Performed By: #### L [id number] ####Rn Building: BROOKE RINCON ([id number])[facility] (SACLAB)[address] [place] [address]#### [id number] ####Rn Building: BROOKE RINCON ([id number])[facility]ITALJul[facility] REYNOLDS RITTMAN (SWRLAB)[address] [place] [address] Clarity (U) Clear Normal Clear [facility] Comment on above: Performed By: #### L [id number] ####Rn Building: BROOKE RINCON ([id number])[facility] (SACLAB)[address] [place] [address]#### [id number] ####Rn Building: BROOKE RINCON ([id number])[facility]ITALJul[facility] REYNOLDS RITTMAN (SWRLAB)[address] [place] [address] Color (U) Light Yellow Normal Lt. Yellow [facility] Comment on above: Performed By: #### L [id number] ####Rn Building: BROOKE RINCON ([id number])[facility] (SACLAB)[address] [place] [address]#### [id number] ####Rn Building: BROOKE RINCON ([id number])[facility]ITALJul[facility] REYNOLDS RITTMAN (SWRLAB)[address] [place] [address] GLUCOSE (MG/DL) IN URINE 1,000 mg/dL Abnormal Normal (<70) [facility] Comment on above: Performed By: #### L [id number] ####Rn Building: BROOKE RINCON ([id number])[facility] (SACLAB)[address] [place] [address] [place]#### [id number] ####Rn Building: BROOKE RINCON ([id number])[facility]ITALJul[facility] REYNOLDS RITTMAN (SWRLAB)[address] [place] [address] HEMOGLOBIN PRESENCE IN URINE Negative Normal Negative [facility] Comment on above: Performed By: #### L [id number] ####Rn Building: BROOKE RINCON ([id number])[facility] (SACLAB)[address] [place] [address] [place]#### [id number] ####Rn Building: BROOKE RINCON ([id number])[facility]ITALRODOLFO RITTMAN (SWRLAB)[address] [place] [address] Ketones Ql (U) Negative Normal Negative [facility] Comment on above: Performed By: #### L [id number] ####Rn Building: BROOKE RINCON ([id number])[facility] (SACLAB)[address] [place] [address] [place]#### [id number] ####Rn Building: BROOKE RINCON ([id number])[facility] RITTMAN (SWRLAB)[address] [place] [address] LEUKOCYTE ESTERASE PRESENCE IN URINE BY TEST STRIP 250 Baljit/uL Abnormal Negative [facility] Comment on above: Performed By: #### L [id number] ####Rn Building: BROOKE RINCON ([id number])[facility] (SACLAB)[address] [place] [address]#### [id number] ####Rn Building: BROOKE RINCON ([id number])[facility]ITALRODOLFO RITTMAN (SWRLAB)[address] [place] [address] NITRITE PRESENCE IN URINE Negative Normal Negative [facility] Comment on above: Performed By: #### L [id number] ####Rn Building: BROOKE RINCON ([id number])[facility] (SACLAB)[address] [place] [address] [place]#### [id number] ####Rn Building: BROOKE RINCON ([id number])[facility] RITTMAN (SWRLAB)[address] [place] [address] pH (U) 5.5 [pH] Normal 5.0-8.0 [facility] Comment on above: Performed By: #### L [id number] ####Rn Building: BROOKE RINCON ([id number])[facility] (SACLAB)[address] [place] [address] [place]#### [id number] ####Rn Building: BROOKE RINCON ([id number])[facility] RODOLFO GARCIA (SWRLAB)[address] [place] [address] Protein (U) [Mass/Vol] Negative Normal Negative [facility] Comment on above: Performed By: #### L [id number] ####Rn Building: BROOKE RINCON ([id number])[facility] (SACLAB)[address] [place] [address] [place]#### [id number] ####Rn Building: BROOKE RINCON ([id number])[facility]ITALRODOLFOMORROW [facility] (RLAB)[address] [place] [address] RBC (#/HPF) IN URINE SEDIMENT 0-2 Normal 0-2 [facility] Comment on above: Performed By: #### L [id number] ####Rn Building: BROOKE RINCON ([id number])[facility] (SACLAB)[address] [place] [address]#### [id number] ####Rn Building: BROOKE RINCON ([id number])[facility] RODOLFO SOLORIOAMA (RLAB)[address] [place] [address] Specific gravity (U) [Rel density] 1.009 Normal 1.005-1.03 0 [facility] Comment on above: Performed By: #### L [id number] ####Rn Building: BROOKE RINCON ([id number])[facility] (SACLAB)[address] [place] [address] [place]#### [id number] ####Rn Building: BROOKE RINCON ([id number])[facility] (RLAB)[address] [place] [address] Specimen volume (U) 12 mL Normal [facility] Comment on above: Performed By: #### L [id number] ####Rn Building: BROOKE RINCON ([id number])[facility] (SACLAB)[address] [place] [address] [place]#### [id number] ####Rn Building: BROOKE RINCON ([id number])[facility] RODOLFO OSMINTMAN (SWRLAB)[address] [place] [address] SQUAMOUS EPITHELIAL CELLS (#/HPF) IN URINE SEDIMENT Negative Normal 3-5 [facility] Comment on above: Performed By: #### L [id number] ####Rn Building: BROOKE RINCON ([id number])[facility] (SACLAB)[address] [place] [address] [place]#### [id number] ####Rn Building: BROOKE RINCON ([id number])[facility] RODOLFO OSMINTMAN (SWRLAB)[address] [place] [address] UROBILINOGEN (MG/DL) IN URINE Normal Normal Normal (0-1) [facility] Comment on above: Performed By: #### L [id number] ####Rn Building: BROOKE RINCON ([id number])[facility] (SACLAB)[address] [place] [address] [place]#### [id number] ####Rn Building: BROOKE RINCON ([id number])[facility] SOLORIOTMAN (SWRLAB)[address] [place] [address] WBC (LEUKOCYTE) (#/HPF) IN URINE SEDIMENT 11-25 Abnormal 0-5 [facility] Comment on above: Performed By: #### L [id number] ####Rn Building: BROOKE RINCON ([id number])[facility] (SACLAB)[address] [place] [address] [place]#### [id number] ####Rn Building: BROOKE RINCON ([id number])[facility] RODOLFO RITTMAN (SWRLAB)[address] [place] [address] WBC (LEUKOCYTE) CLUMPS (#/HPF) IN URINE SEDIMENT Few Abnormal Negative [facility] Comment on above: Performed By: #### L [id number] ####Rn Building: BROOKE RINCON ([id number])[facility] (SACLAB)[address] [place] [address]#### [id number] ####Rn Building: BROOKE RINCON ([id number])RODRIGO GARCIA (SWRLAB)[address] [place] [address] COMPREHENSIVE METABOLIC PANE David 12-02-2024 Albumin [Mass/Vol] 3.9 g/dL Normal 3.4-4.8 [facility] Comment on above: Performed By: #### L AB149, LAB17, [id number], [id number] ####Rn Building: BROOKE RINCON ([id number])[facility]ITALJul[facility] OWENSAN (SWRLAB)[address] [place] [address] ALP [Catalytic activity/Vol] 63 U/L Normal 40-150 [facility] Comment on above: Performed By: #### L AB149, LAB17, [id number], [id number] ####Rn Building: BROOKE RINCON ([id number])[facility]Jul[facility] SOLORIOTMAN (SWRLAB)[address] [place] [address] ALT [Catalytic activity/Vol] 19 U/L Normal <30 [facility] Comment on above: Performed By: #### L AB149, LAB17, [id number], [id number] ####Rn Building: BROOKE RINCON ([id number])[facility]Jul[facility] SOLORIOTMAN (SWRLAB)[address] [place] [address] Anion gap [Moles/Vol] 13 mmol/L Normal 3-13 [facility] Comment on above: Performed By: #### L AB149, LAB17, [id number], [id number] ####Rn Building: BROOKE RINCON ([id number])[facility]Jul[facility] SOLORIOTMAN (SWRLAB)[address] AST [Catalytic activity/Vol] 27 U/L Normal <34 [facility] Comment on above: Performed By: #### L AB149, LAB17, [id number], [id number] ####Rn Building: BROOKE RINCON ([id number])[facility]ITALJul[facility] REYNOLDS RITTMAN (SWRLAB)[address] [place] [address] [place] Bilirubin [Mass/Vol] 0.4 mg/dL Normal <1.2 [facility] Comment on above: Performed By: #### Jaz AB149, LAB17, [id number], [id number] ####Rn Building: BROOKE RINCON ([id number])[facility]Jul[facility] REYNOLDS RITTMAN (SWRLAB)[address] [place] [address] [place] Calcium [Mass/Vol] 9.8 mg/dL Normal 8.8-10.0 [facility] Comment on above: Performed By: #### Jaz AB149, LAB17, [id number], [id number] ####Rn Building: BROOKE RINCON ([id number])[facility]Jul[facility] REYNOLDS RITTMAN (SWRLAB)[address] [place] [address] [place] Chloride [Moles/Vol] 112 mmol/L High 98-107 [facility] Comment on above: Performed By: #### L AB149, LAB17, [id number], [id number] ####Rn Building: BROOKE RINCON ([id number])[facility]ITALJul[facility] REYNOLDS RITTMAN (SWRLAB)[address] [place] [address] [place] CO2 [Moles/Vol] 18 mmol/L Low 23-31 [facility] Comment on above: Performed By: #### Jaz AB149, LAB17, [id number], [id number] ####Rn Building: BROOKE RINCON ([id number])[facility]Jul[facility] REYNOLDS RITTMAN (SWRLAB)[address] [place] [address] [place] Creatinine [Mass/Vol] 1.22 mg/dL High 0.57-1.11 [facility] Comment on above: Performed By: #### L AB149, LAB17, [id number], [id number] ####Rn Building: BROOKE RINCON ([id number])[facility] REYNOLDS RITTMAN (SWRLAB)[address] [place] [address] GLOMERULAR FILTRATION RATE ML/MIN/1.73 SQ M.PREDICTED 43.6 mL/min/1.73m*2 Low >60.0 [facility] Comment on above: Result Comment: Calc ulation based on the Chronic Kidney Disease Epidemiology Collaboration (CKD-EPI) equation refit without adjustment for race Performed By: #### L AB149, LAB17, [id number], [id number] ####Rn Building: BROOKE RINCON ([id number])[facility] RODOLFO RITTMAN (SWRLAB)[address] [place] [address] Glucose [Mass/Vol] 266 mg/dL High 82-115 [facility] Comment on above: Performed By: #### L AB149, LAB17, [id number], [id number] ####Rn Building: BROOKE RINCON ([id number])[facility]RODOL[facility] RITTM[facility] (SWRLAB)[address] [place] [address] Potassium [Moles/Vol] 4.6 mmol/L Normal 3.5-5.1 [facility] Comment on above: Result Comment: [facility] potassium values may be up to 0.5 mmol/L lower than serum values. Performed By: #### L AB149, LAB17, [id number], [id number] ####Rn Building: BROOKE RINCON ([id number])[facility] REYNOLDS RITTMAN (SWRLAB)[address] [place] [address] Protein [Mass/Vol] 7.6 g/dL Normal 6.4-8.3 [facility] Comment on above: Performed By: #### L AB149, LAB17, [id number], [id number] ####Rn Building: BROOKE RINCON ([id number])[facility] RODOLFO RITTMAN (SWRLAB)[address] [place] [address] [place] Sodium [Moles/Vol] 143 mmol/L Normal 136-145 [facility] Comment on above: Performed By: #### L AB149, LAB17, [id number], [id number] ####Rn Building: BROOKE RINCON ([id number])[facility] OSMINAN (SWRLAB)[address] Urea nitrogen [Mass/Vol] 46 mg/dL High - [facility] Comment on above: Performed By: #### L AB149, LAB17, [id number], [id number] ####Rn Building: BROOKE RINCON ([id number])[facility] OSMINAN (SWRLAB)[address] HEAD WO IV CONTRASTon CT HEAD WO IV CONTRAST Normal [facility] CT Head WO contraston 2024 No acute intracrania l process. Report Dictated on Electronically Signed By: Priscila Miramontes MD Electronically Signed Date/Time: 12/02/2024 10:44 PM EDT [facility] Patient Name: HANNA NELSON : 1940 Exam Date/Time: 12/02/2024 22:30 Procedure: CT HEAD WO IV CONTRAST Ordering Provider: MARIE DUSTIN Reason For Exam: confusion CT HEAD: Clinical Indication: Confusion Imaging Technique: Multiple axial 3mm CT images of the head were obtained from the skull base to the vertex. Coronal and sagittal reconstructs were rendered. Dose reduction was employed with automated exposure control. Comparison: none FINDINGS: There is no intracranial hemorrhage. There is global volume loss with mild small vessel ischemia. The calvarium is intact. The globes are symmetric. The nasal turbinates are edematous which narrows the nasal passageway. The mastoid air cells are pneumatized. There is no fluid in the right or left middle ear. [facility] Priscila Miramontes MD - 12/02/2024 Patient Name: HANNA NELSON : 1940 Exam Date/Time: 12/02/2024 22:30 Procedure: CT HEAD WO IV CONTRAST Ordering Provider: MARIE DUSTIN Reason For Exam: confusion CT HEAD: Clinical Indication: Confusion Imaging Technique: Multiple axial 3mm CT images of the head were obtained from the skull base to the vertex. Coronal and sagittal reconstructs were rendered. Dose reduction was employed with automated exposure control. Comparison: none FINDINGS: There is no intracranial hemorrhage. There is global volume loss with mild small vessel ischemia. The calvarium is intact. The globes are symmetric. The nasal turbinates are edematous which narrows the nasal passageway. The mastoid air cells are pneumatized. There is no fluid in the right or left middle ear. IMPRESSION: No acute intracranial process. Report Dictated on Electronically Signed By: Priscila Miramontes MD Electronically Signed Date/Time: 12/02/2024 10:44 PM EDT [facility] Radiology Study observation (narrative) [facility] CT Head WO contrastOrdered B y: Priscila Miramontes on 12-02-2024 [facility] Work Phone: Comprehensive metabolic 1998 panelon 12-02-2024 Albumin [Mass/Vol] 3.9 g/dL 3.4 - 4.8 g/dL [facility] ALP [Catalytic activity/Vol] 63 U/L 40 - 150 U/L [facility] ALT [Catalytic activity/Vol] 19 U/L [facility] - 30 U/L [facility] Anion gap [Moles/Vol] 13 mmol/L 3 - 13 mmol/L [facility] AST [Catalytic activity/Vol] 27 U/L [facility] - 34 U/L [facility] Bilirubin [Mass/Vol] 0.4 mg/dL [facility] - 1.2 mg/dL [facility] Calcium [Mass/Vol] 9.8 mg/dL 8.8 - 10. 0 mg/dL [facility] Chloride [Moles/Vol] 112 mmol/L High 98 - 10 7 mmol/L [facility] CO2 [Moles/Vol] 18 mmol/L Low 23 - 31 mmol/L [facility] Creatinine [Mass/Vol] 1.22 mg/dL High 0.57 - 1.11 mg/dL [facility] GFR/1.73 sq M.predicted (S/P/Bld) [Vol rate/Area] 43.6 mL/min Low - PINF [facility] Comment on above: Calculation based on the Chronic Kidney Disease Epidemiology Collaboration (CKD-EPI) equation refit without adjustment for race Glucose [Mass/Vol] 266 mg/dL High 82 - 115 mg/dL [facility] Potassium [Moles/Vol] 4.6 mmol/L 3.5 - 5.1 mmol/L [facility] Comment on above: Plasma potassium ashley ues may be up to 0.5 mmol/L lower than serum values. Protein [Mass/Vol] 7.6 g/dL 6.4 - 8.3 g/dL [facility] Sodium [Moles/Vol] 143 mmol/L 136 - 145 mmol/L [facility] Urea nitrogen [Mass/Vol] 46 mg/dL High 9 - 23 mg/dL [facility] ED Nursing Noteon 12-02-2024 ED Nursing Note Patient linda area cl eansed and new adult brief placed on patient. Normal [facility] ED Nursing Note Patient assisted to bedpan to void. Normal [facility] ED Nursing Note Son and daughter to bedside. Normal [facility] ED Nursing Note Normal [facility] ED Provider Noteon ED Provider Note Normal [facility] HEMOGLOBIN A1Con 12-02-2024 Glucose [Mass/Vol] 212 mg/dL Normal [facility] Comment on above: Result Comment: CARLTON Geiger COMMENTS:If not done within the last 3 [id number] values of 5.7-6.4 percent indicate an increased risk for developing diabetes mellitus. HbA1c values greater than or equal to 6.5 percent are diagnostic of diabetes mellitus. For diagnosis of diabetes in individuals without unequivocal hyperglycemia, results should be confirmed by repeat testing. Performed By: #### L AB90 ####Rn Building: BROOKE RINCON ([id number])[facility] YOBANI (SWLAB)[address] [place] [address] HEMOGLOBIN A1C 9.0 %HbA1C High <5.7 [facility] Comment on above: Result Comment: Norm al less than 5.7%Prediabetes 5.7% to 6.4%Diabetes 6.5% or higher--HgbA1C levels may not be accurate in patients who have renal disease, received recent blood transfusions, are anemic, or who have dyshemoglobinemia. Performed By: #### L AB90 ####Rn Building: BROOKE RINCON ([id number])[facility]ITALRODOLFORANDY SOLORIOAMA (SWRLAB)[address] [place] [address] Laboratory - Chemistry and C hemistry - challengeon 12-02-2024 Beta hydroxybutyrate [Mass/Vol] 7.7 mg/dL High NINF - 2.8 mg/dL [facility] No Panel Informationon 12-02 Interpretation and review of laboratory results Abnormal [facility] Nursing Noteon 12-02-2024 Nursing Note Chart accessed oracio cornelio [facility] Normal [facility] PROCALCITONIN TESTon 025 PROCALCITONIN 0.07 ng/mL High <0.07 [facility] Comment on above: Result Comment: CARLTON Geiger COMMENTS:PCT <0.50 = Low risk of severe sepsis and/or septic shock.PCT >2.00 = High risk of severe sepsis and/or septic shock. Performed By: #### L AB149, LAB17, [id number], [id number] ####Rn Building: BROOKE RINCON ([id number])[facility]ITALRODOLFO [facility] (RLAB)[address] [place] [address] URINE CULTUREon 12-02-2024 Bacteria identified Cx Nom (U) Normal [facility] Comment on above: Performed By: #### L AB239 ####Rn Building: BROOKE RINCON ([id number])[facility] (SACLAB)[address] [place] [address]#### [id number] ####Rn Building: BROOKE RINCON ([id number])[facility]ITALRODOLFOM[facility] (RLAB)[address] [place] [address] Urinalysis complete panel (U )Ordered By: Dulce Martinez on 12-02-2024 Bacteria LM.HPF (Urine sed) [#/Area] Loaded Abnormal Negative /HPF [facility] Bilirubin Ql (U) Negative Negative mg/dL [facility] Clarity (U) Clear Clear [facility] Color (U) Light Yellow Lt. Yellow [facility] Epithelial cells.squamous LM.HPF (Urine sed) [#/Area] Negative [facility] Glucose Ql (U) 1,000 Abnormal Normal (<70) mg/dL [facility] Hemoglobin Ql (U) Negative Negative mg/dL [facility] Interpretation and review of laboratory results Abnormal [facility] Ketones (U) [Mass/Vol] Negative Negat eddie mg/dL [facility] Leukocyte clumps LM.HPF (Urine sed) [#/Area] Few Abnormal Negative /HPF [facility] Leukocyte esterase Test strip Ql (U) 250 Abnormal Negative Baljit/uL [facility] Nitrite Ql (U) Negative Negative [facility] pH (U) 5.5 [pH] 5.0 - 8.0 pH [facility] Protein (U) [Mass/Vol] Negative Negat eddie mg/dL [facility] RBC LM.HPF (Urine sed) [#/Area] 0-2 [facility] Specific gravity (U) [Rel density] 1.009 1.005 - 1.030 [facility] Urobilinogen (U) [Mass/Vol] Normal Normal (0-1) mg/dL [facility] Volume, Urine 12 mL [facility] WBC LM.HPF (Urine sed) [#/Area] 11-25 Abnormal [facility] 29on 11-27-2024 29 Encounter addended b y: Liss Acevedo RN on: 11/27/2024 9:54 AM Actions taken: Flowsheet accepted Normal [facility] 37on 11-27-2024 37 Normal [facility] No Panel Informationon 11-27 NIKOS Ramesh RN - NUCLE[employer] INSTRUMENT TECHNICIAN 11/27/2024 9:23 AM Debridement Wound/Incision 09/18/24 Diabetic Ulcer Foot Right Performed by: ALEJANDRINA Ramesh CNP Authorized by: ALEJANDRINA Ramesh CNP Consent Consent obtained? verbal Consent given by: patient Risks discussed? procedural risks discussed Time out called at 11/27/2024 9:21 AM Immediately prior to the procedure a time out was called and the performing provider verified the correct patient, procedure, equipment, technical support 1 software engineer, and site/side marked as required. Debridement Details Performed by: JUNIOR PROGRAMMER Debridement type: surgical Level of debridement: subcutaneous tissue Pain control: lidocaine 2% Pain control administration type: topical Pre-debridement measurements Length (cm): 0.2 Width (cm): 0.2 Depth (cm): 0.1 Surface Area (cm^2): 0.04 Post-debridement measurements Length (cm): 0.2 Width (cm): 0.2 Depth (cm): 0.1 Percent debrided: 100% Surface Area (cm^2): 0.04 Area Debrided (cm^2): 0.04 Volume (cm^3): 0 Tissue and other material debrided: subcutaneous tissue Devitalized tissue debrided: biofilm and fibrin Instrument(s) utilized: curette Bleeding: small Hemostasis obtained with: pressure Procedural pain (0-10): 0 Post-procedural pain: 0 Response to treatment: procedure was tolerated well [facility] Progress Noteon 11-27-2024 Progress Note [facility] 3711-20-2024 37 [facility] Progress Noteon 11-20-2024 Progress Note [facility] 3711-13-2024 37 [facility] Progress Noteon 11-13-2024 Progress Note [facility] 3611-12-2024 36 Called and spoke to Hi. Pt is scheduled in December to see Priscila Laguerre. [facility] 36 Could you please assist? [facility] 36on 11-11-2024 36 Patient's further qu estions if applicable: Hi states he is calling to get pt scheduled for a follow up appt with office for sooner then what's available. Please advise. [facility] 3711-06-2024 37 [facility] Progress Noteon 11-06-2024 Progress Note [facility] 3610-29-2024 36 [facility] 37on 10-16-2024 37 [facility] No Panel Informationon 10-16 Nallely Alas DPM 10/16/2024 3:25 PM Debridement Wound/Incision 09/18/24 Diabetic Ulcer Foot Right Performed by: Nallely Alas DPM Authorized by: Nallely Alas DPM Consent Consent obtained? verbal Consent given by: patient Risks discussed? procedural risks discussed Debridement Details Performed by: physician Debridement type: surgical Level of debridement: subcutaneous tissue Pain control: lidocaine 2% Pain control administration type: topical Pre-debridement measurements Length (cm): 0.7 Width (cm): 0.6 Depth (cm): 0.2 Surface Area (cm^2): 0.42 Post-debridement measurements Length (cm): 1.2 Width (cm): 1.1 Depth (cm): 0.4 Percent debrided: 100% Surface Area (cm^2): 1.32 Area Debrided (cm^2): 1.32 Volume (cm^3): 0.53 Tissue and other material debrided: dermis, epidermis and subcutaneous tissue Devitalized tissue debrided: callus, fibrin, necrotic debris and slough Instrument(s) utilized: curette and blade Bleeding: small Hemostasis obtained with: pressure Procedural pain (0-10): 0 Post-procedural pain: 0 Response to treatment: procedure was tolerated well [facility] Progress Noteon 10-16-2024 Progress Note [facility] Progress Noteon 10-15-2024 Progress Note [facility] 37on 10-09-2024 37 [facility] Progress Noteon 10-09-2024 Progress Note [facility] 29on 10-02-2024 29 Encounter addended b y: Liss Acevedo RN on: 10/07/2024 8:01 AM Actions taken: Clinical Note Signed, Order list changed, Diagnosis association updated [facility] 29 Encounter addended b y: Dayna Medley RN on: 10/02/2024 2:26 PM Actions taken: Charge Capture section accepted [facility] 37on 10-02-2024 37 [facility] No Panel Informationon 10-02 NIKOS Ramesh RN - NUCLEAR PLANT INSTRUMENT TECHNICIAN 10/02/2024 10:39 AM Debridement Wound/Incision 09/18/24 Diabetic Ulcer Foot Right Performed by: ALEJANDRINA Ramesh CNP Authorized by: ALEJANDRINA Ramesh CNP Consent Consent obtained? verbal Consent given by: patient Risks discussed? procedural risks discussed Time out called at 10/02/2024 10:33 AM Immediately prior to the procedure a time out was called and the performing provider verified the correct patient, procedure, equipment, technical support 1 software engineer, and site/side marked as required. Debridement Details Performed by: JUNIOR PROGRAMMER Debridement type: surgical Level of debridement: subcutaneous tissue Pain control: lidocaine 2% Pain control administration type: topical Pre-debridement measurements Length (cm): 1 Width (cm): 1 Depth (cm): 0.2 Surface Area (cm^2): 1 Post-debridement measurements Length (cm): 1 Width (cm): 1 Depth (cm): 0.2 Percent debrided: 100% Surface Area (cm^2): 1 Area Debrided (cm^2): 1 Volume (cm^3): 0.2 Tissue and other material debrided: subcutaneous tissue Devitalized tissue debrided: biofilm, callus and slough Instrument(s) utilized: curette Bleeding: small Hemostasis obtained with: pressure Procedural pain (0-10): 0 Post-procedural pain: 0 Response to treatment: procedure was tolerated well [facility] Progress Noteon 10-02-2024 Progress Note [facility] 36on 09-29-2024 36 Spoke with pts son Annie nick. She is being seen at [facility] in [place] tomorrow. Will cancel future new patient appt with our practice. . [facility] 36on 09-25-2024 36 Pt has appt at [facility]. Called patient for clarification, pt advised to call her son. LVM for son asking to call back. [facility] 30on 09-24-2024 30 [facility] 30 [facility] [id number] 09-24-2024 [id number] [facility] [id number] [facility] 3609-24-2024 36 Edmond Allen, The family changed their mind and are agreeable to insulin for discharge. Can we continue Javier 3 plus? It is set up on her phone and doesn't require reader. Thanks! [facility] BASIC METABOLIC PANELon 09-12 Anion gap [Moles/Vol] 9 mmol/L Normal 10-22 [facility] Comment on above: Performed By: #### L [id number] ####Rn Building: MUSHTAQ MAGUIRE ([id number])[facility] (SBHLAB)[address] Calcium [Mass/Vol] 8.8 mg/dL Normal 8.8-10.0 [facility] Comment on above: Performed By: #### L AB15 ####Rn Building: MUSHTAQ MAGUIRE ([id number])[facility] (SBHLAB)[address] Chloride [Moles/Vol] 111 mmol/L High 98-107 [facility] Comment on above: Performed By: #### L AB15 ####Rn Building: MUSHTAQ MAGUIRE ([id number])[facility] (SBHLAB)[address] CO2 [Moles/Vol] 19 mmol/L Low 23-31 [facility] Comment on above: Performed By: #### L AB15 ####Rn Building: MUSHTAQ MAGUIRE ([id number])[facility] [place] (SB[facility])[address] Creatinine [Mass/Vol] 1.07 mg/dL Normal 0.57-1.11 [facility] Comment on above: Performed By: #### L AB15 ####Rn Building: MUSHTAQ MAGUIRE ([id number])[facility] [place] (SBHLAB)[address] [place] [address] [place] GLOMERULAR FILTRATION RATE ML/MIN/1.73 SQ M.PREDICTED 51.0 mL/min/1.73m*2 Low >60.0 [facility] Comment on above: Result Comment: Calc ulation based on the Chronic Kidney Disease Epidemiology Collaboration (CKD-EPI) equation refit without adjustment for race Performed By: #### L AB15 ####Rn Building: MUSHTAQ MAGUIRE ([id number])[facility] [place] (SB[facility])[address] [place] [address] [place] Glucose [Mass/Vol] 238 mg/dL High 82-115 [facility] Comment on above: Performed By: #### L AB15 ####Rn Building: MUSTHAQ MAGUIRE ([id number])[facility] (SBHLAB)[address] [place] [address] Potassium [Moles/Vol] 4.4 mmol/L Normal 3.5-5.1 [facility] Comment on above: Result Comment: [facility] potassium values may be up to 0.5 mmol/L lower than serum values. Performed By: #### L AB15 ####Rn Building: MUSHTAQ MAGUIRE ([id number])[facility] (SBHLAB)[address] Sodium [Moles/Vol] 139 mmol/L Normal 136-145 [facility] Comment on above: Performed By: #### L AB15 ####Rn Building: MUSHTAQ MAGUIRE ([id number])[facility] (SBHLAB)[address] [place] [address] Urea nitrogen [Mass/Vol] 35 mg/dL High 9-23 [facility] Comment on above: Performed By: #### L AB15 ####Rn Building: MUSHTAQ MAGUIRE ([id number])[facility] (SBHLAB)[address] [place] [address] Basic metabolic 1998 panelon 09-24-2024 Anion gap [Moles/Vol] 9 mmol/L 3 - 13 mmol/L [facility] Calcium [Mass/Vol] 8.8 mg/dL 8.8 - 10. 0 mg/dL [facility] Chloride [Moles/Vol] 111 mmol/L High 98 - 10 7 mmol/L [facility] CO2 [Moles/Vol] 19 mmol/L Low 23 - 31 mmol/L [facility] Creatinine [Mass/Vol] 1.07 mg/dL 0.57 - 1.11 mg/dL [facility] GFR/1.73 sq M.predicted (S/P/Bld) [Vol rate/Area] 51 mL/min Low - PINF [facility] Comment on above: Calculation based on the Chronic Kidney Disease Epidemiology Collaboration (CKD-EPI) equation refit without adjustment for race Glucose [Mass/Vol] 238 mg/dL High 82 - 115 mg/dL [facility] Interpretation and review of laboratory results Abnormal [facility] Potassium [Moles/Vol] 4.4 mmol/L 3.5 - 5.1 mmol/L [facility] Comment on above: Plasma potassium ashley ues may be up to 0.5 mmol/L lower than serum values. Sodium [Moles/Vol] 139 mmol/L 136 - 145 mmol/L [facility] Urea nitrogen [Mass/Vol] 35 mg/dL High 9 - 23 mg/dL [facility] CBC W Auto Differential pane l (Bld)on 09-24-2024 Basophils (Bld) [#/Vol] 0.1 10*3/uL 0.0 - 0.2 10*3/uL [facility] Basophils/100 WBC (Bld) 0.7 % 0.0 - 2.0 % [facility] Eosinophils (Bld) [#/Vol] 0.2 10*3/uL 0.0 - 0.5 10*3/uL [facility] Eosinophils/100 WBC (Bld) 3.6 % 0.0 - 6.0 % [facility] Erythrocyte distribution width (RBC) [Ratio] 13.5 % 11.5 - 15.0 % [facility] Hematocrit (Bld) [Volume fraction] 36.8 % 35.0 - 47.0 % [facility] Hemoglobin (Bld) [Mass/Vol] 11.7 g/dL 11.7 - 16.0 g/dL [facility] Immature granulocytes (Bld) [#/Vol] 0 10*3/uL NINF - 0.1 10*3/uL [facility] Immature granulocytes/100 WBC (Bld) 0.4 % 0.0 - 2.0 % [facility] Interpretation and review of laboratory results Normal [facility] Lymphocytes (Bld) [#/Vol] 1.8 10*3/uL 1.0 - 4.3 10*3/uL [facility] Lymphocytes/100 WBC (Bld) 27.3 % 15.0 - 45.0 % [facility] MCH (RBC) [Entitic mass] 30.8 pg 26.0 - 34.0 pg [facility] MCHC (RBC) [Mass/Vol] 31.8 % 30.5 - 36.0 % [facility] MCV (RBC) [Entitic vol] 96.8 fL 77.0 - 99.0 fL [facility] Monocytes (Bld) [#/Vol] 0.7 10*3/uL 0.0 - 0.9 10*3/uL [facility] Monocytes/100 WBC (Bld) 10.4 % 5.0 - 13.0 % [facility] Neutrophils (Bld) [#/Vol] 3.9 10*3/uL 1.8 - 7.5 10*3/uL [facility] Neutrophils/100 WBC (Bld) 57.6 % 38.0 - 82.0 % [facility] Nucleated RBC/100 WBC (Bld) [Ratio] 0 % [facility] Platelet mean volume (Bld) [Entitic vol] 11.1 fL 9.0 - 12.7 fL [facility] Platelets (Bld) [#/Vol] 215 10*3/uL 140 - 440 10*3/uL [facility] RBC (Bld) [#/Vol] 3.8 10*6/uL 3.80 - 5.20 10*6/uL [facility] WBC (Bld) [#/Vol] 6.7 10*3/uL 3.6 - 10.7 10*3/uL [facility] CBC WITH AUTO DIFFERENTIALon 09-24-2024 Basophils (Bld) [#/Vol] 0.1 10*3/uL Normal 0.0-0.2 [facility] Comment on above: Performed By: #### L [id number] ####Rn Building: MUSHTAQ MAGUIRE ([id number])[facility] ([facility])[address] [place] [address] Basophils/100 WBC (Bld) 0.7 % Normal 0.0-2.0 [facility] Comment on above: Performed By: #### L [id number] ####Rn Building: MUSHTAQ MAGUIRE ([id number])[facility] ([facility])[address] [place] [address] Eosinophils (Bld) [#/Vol] 0.2 10*3/uL Normal 0.0-0.5 [facility] Comment on above: Performed By: #### L [id number] ####Rn Building: MUSHTAQ MAGUIRE ([id number])[facility] (SBHLAB)[address] [place] [address] Eosinophils/100 WBC (Bld) 3.6 % Normal 0.0-6.0 [facility] Comment on above: Performed By: #### L [id number] ####Rn Building: MUSHTAQ MAGUIRE ([id number])[facility] (SBAB)[address] Erythrocyte distribution width (RBC) [Ratio] 13.5 % Normal 11.5-15.0 [facility] Comment on above: Performed By: #### L [id number] ####Rn Building: MUSHTAQ MAGUIRE ([id number])[facility] [place] [address] Hematocrit (Bld) [Volume fraction] 36.8 % Normal 35.0-47.0 [facility] Comment on above: Performed By: #### L [id number] ####Rn Building: MUSHTAQ MAGUIRE ([id number])[facility])[address] [place] [address] Hemoglobin (Bld) [Mass/Vol] 11.7 g/dL Normal 11.7-16.0 [facility] Comment on above: Performed By: #### L [id number] ####Rn Building: MUSHTAQ MAGUIRE ([id number])[facility])[address] [place] [address] IMMATURE GRANS % 0.4 % Normal 0.0-2.0 [facility] Comment on above: Performed By: #### L [id number] ####Rn Building: MUSHTAQ MAGUIRE ([id number])[facility])[address] [place] [address] IMMATURE GRANS ABSOLUTE 0.0 10*3/uL Normal <0.1 [facility] Comment on above: Performed By: #### L [id number] ####Rn Building: MUSHTAQ MAGUIRE ([id number])[facility]ONCLOV[facility] (SBHLAB)[address] Lymphocytes (Bld) [#/Vol] 1.8 10*3/uL Normal 1.0-4.3 [facility] Comment on above: Performed By: #### L [id number] ####Rn Building: MUSHTAQ MAGUIRE ([id number])[facility] (SBHLAB)[address] Lymphocytes/100 WBC (Bld) 27.3 % Normal 15.0-45.0 [facility] Comment on above: Performed By: #### L [id number] ####Rn Building: MUSHTAQ MAGUIRE ([id number])[facility] (SBHLAB)[address] MCH (RBC) [Entitic mass] 30.8 pg Normal 26.0-34.0 [facility] Comment on above: Performed By: #### L [id number] ####Rn Building: MUSHTAQ MAGUIRE ([id number])[facility] [place] (SBHLAB)[address] MCHC 31.8 % Normal 30.5-36.0 [facility] Comment on above: Performed By: #### L [id number] ####Rn Building: MUSHTAQ MAGUIRE ([id number])[facility] (SBHLAB)[address] MCV (RBC) [Entitic vol] 96.8 fL Normal 77.0-99.0 [facility] Comment on above: Performed By: #### L [id number] ####Rn Building: MUSHTAQ MAGUIRE ([id number])[facility] (SBHLAB)[address] Monocytes (Bld) [#/Vol] 0.7 10*3/uL Normal 0.0-0.9 [facility] Comment on above: Performed By: #### L [id number] ####Rn Building: MUSHTAQ MAGUIRE ([id number])[facility] (SBHLAB)[address] Monocytes/100 WBC (Bld) 10.4 % Normal 5.0-13.0 [facility] Comment on above: Performed By: #### L [id number] ####Rn Building: MUSHTAQ MAGUIRE ([id number])[facility] [place] (SBHLAB)[address] NEUTROPHILS ABSOLUTE 3.9 10*3/uL Normal 1.8-7.5 [facility] Comment on above: Performed By: #### L [id number] ####Rn Building: MUSHTAQ MAGUIRE ([id number])[facility] [place] (SBHLAB)[address] Neutrophils/100 WBC (Bld) 57.6 % Normal 38.0-82.0 [facility] Comment on above: Performed By: #### L [id number] ####Rn Building: MUSHTAQ MAGUIRE ([id number])[facility] [place] (SBHLAB)[address] NRBC 0.0 /100 WBCs Normal 0.0-2.0 [facility] Comment on above: Performed By: #### L [id number] ####Rn Building: MUSHTAQ MAGUIRE ([id number])[facility] [place] (SBHLAB)[address] Platelet mean volume (Bld) [Entitic vol] 11.1 fL Normal 9.0-12.7 [facility] Comment on above: Performed By: #### L [id number] ####Rn Building: MUSHTAQ MAGUIRE ([id number])[facility] [place] (SBHLAB)[address] [place] [address] [place] Platelets (Bld) [#/Vol] 215 10*3/uL Normal 140-440 [facility] Comment on above: Performed By: #### L [id number] ####Rn Building: MUSHTAQ MAGUIRE ([id number])[facility] H[facility] (SBHLAB)[address] RBC (Bld) [#/Vol] 3.80 10*6/uL Normal 3.80-5.20 [facility] Comment on above: Performed By: #### L [id number] ####Rn Building: MUSHTAQ XIECHONDIANA ([id number])[facility]ABRA[facility] (SBHLAB)[address] [place] [address] WBC (Bld) [#/Vol] 6.7 10*3/uL Normal 3.6-10.7 [facility] Comment on above: Performed By: #### L [id number] ####Rn Building: MUSHTAQ HOLMCER ([id number])[facility] H[facility] (SBHLAB)[address] [place] [address] Laboratory - Chemistry and C hemistry - challengeon 09-24-2024 Glucose [Mass/Vol] 241 mg/dL High 70 - 100 mg/dL [facility] Glucose [Mass/Vol] 235 mg/dL High 70 - 100 mg/dL [facility] No Panel Informationon 09-24 Interpretation and review of laboratory results Abnormal [facility] Performed by: [facility], [address] [place] [address] CLIA ID: [id number] [facility] Interpretation and review of laboratory results Abnormal [facility] Performed by: [facility], [address] [place] [address] CLIA ID: [id number] [facility] Progress Noteon 09-24-2024 Progress Note Normal [facility] Progress Note Normal [facility] Progress Note Normal [facility] 30on 09-23-2024 30 Normal [facility] [id number] 09-23-2024 [id number] Normal [facility] [id number] Normal [facility] [id number] Normal [facility] [id number] Normal [facility] 36on 09-23-2024 36 Hi Tiffany, This patient refused insulin for home going. She won't qualify for Javier sensors. Can you cancel this request? Thanks! Normal [facility] 36 JUNIOR PROGRAMMER appt cancelled by MANAGED SERVICES SALES CONSULTANT, Will defer for 3 days and follow up Normal [facility] 36 Normal [facility] BASIC METABOLIC PANELon 09-12 Anion gap [Moles/Vol] 9 mmol/L Normal 3-13 [facility] Comment on above: Performed By: #### L AB15 ####Rn Building: MUSHTAQ MAGUIRE ([id number])[facility] [place] (SBHLAB)[address] Calcium [Mass/Vol] 9.0 mg/dL Normal 8.8-10.0 [facility] Comment on above: Performed By: #### L AB15 ####Rn Building: MUSHTAQ MAGUIRE ([id number])[facility] [place] (SB[facility]AB)[address] Chloride [Moles/Vol] 111 mmol/L High 98-107 [facility] Comment on above: Performed By: #### L AB15 ####Rn Building: MUSHTAQ MAGUIRE ([id number])[facility] [place] (SBHLAB)[address] CO2 [Moles/Vol] 19 mmol/L Low 23-31 [facility] Comment on above: Performed By: #### L AB15 ####Rn Building: MUSHTAQ MAGUIRE ([id number])[facility] [place] (SB[facility]AB)[address] Creatinine [Mass/Vol] 1.08 mg/dL Normal 0.57-1.11 [facility] Comment on above: Performed By: #### L AB15 ####Rn Building: MUSHTAQ MAGUIRE ([id number])[facility] [place] (SBHLAB)[address] GLOMERULAR FILTRATION RATE ML/MIN/1.73 SQ M.PREDICTED 50.4 mL/min/1.73m*2 Low >60.0 [facility] Comment on above: Result Comment: Calc ulation based on the Chronic Kidney Disease Epidemiology Collaboration (CKD-EPI) equation refit without adjustment for race Performed By: #### L AB15 ####Rn Building: MUSHTAQ MAGUIRE ([id number])[facility] [place] (HLAB)[address] Glucose [Mass/Vol] 255 mg/dL High 82-115 [facility] Comment on above: Performed By: #### L AB15 ####Rn Building: MUSHTAQ MAGUIRE ([id number])[facility])[address] Potassium [Moles/Vol] 4.3 mmol/L Normal 3.5-5.1 [facility] Comment on above: Result Comment: [facility] potassium values may be up to 0.5 mmol/L lower than serum values. Performed By: #### L AB15 ####Rn Building: MUSHTAQ MAGUIRE ([id number])[facility] ([facility])[address] Sodium [Moles/Vol] 139 mmol/L Normal 136-145 [facility] Comment on above: Performed By: #### L AB15 ####Rn Building: MUSHTAQ AMGUIRE ([id number])[facility] ([facility])[address] Urea nitrogen [Mass/Vol] 35 mg/dL High 9-23 [facility] Comment on above: Performed By: #### L AB15 ####Rn Building: MUSHTAQ MAGUIRE ([id number])[facility])[address] [place] [address] Basic metabolic 1998 panelon 09-23-2024 Anion gap [Moles/Vol] 9 mmol/L 3 - 13 mmol/L [facility] Calcium [Mass/Vol] 9 mg/dL 8.8 - 10. 0 mg/dL [facility] Chloride [Moles/Vol] 111 mmol/L High 98 - 10 7 mmol/L [facility] CO2 [Moles/Vol] 19 mmol/L Low 23 - 31 mmol/L [facility] Creatinine [Mass/Vol] 1.08 mg/dL 0.57 - 1.11 mg/dL [facility] [employer] GFR/1.73 sq M.predicted (S/P/Bld) [Vol rate/Area] 50.4 mL/min Low - PINF [facility] Comment on above: Calculation based on the Chronic Kidney Disease Epidemiology Collaboration (CKD-EPI) equation refit without adjustment for race Glucose [Mass/Vol] 255 mg/dL High 82 - 115 mg/dL [facility] Interpretation and review of laboratory results Abnormal [facility] Potassium [Moles/Vol] 4.3 mmol/L 3.5 - 5.1 mmol/L [facility] Comment on above: Plasma potassium ashley ues may be up to 0.5 mmol/L lower than serum values. Sodium [Moles/Vol] 139 mmol/L 136 - 145 mmol/L [facility] Urea nitrogen [Mass/Vol] 35 mg/dL High 9 - 23 mg/dL [facility] CBC W Auto Differential pane l (Bld)Ordered By: Olayinka Du on 09-23-2024 Basophils (Bld) [#/Vol] 0 10*3/uL 0.0 - 0.2 10*3/uL [facility] Basophils/100 WBC (Bld) 0.5 % 0.0 - 2.0 % [facility] Eosinophils (Bld) [#/Vol] 0.3 10*3/uL 0.0 - 0.5 10*3/uL [facility] Eosinophils/100 WBC (Bld) 4.2 % 0.0 - 6.0 % [facility] Erythrocyte distribution width (RBC) [Ratio] 13.6 % 11.5 - 15.0 % [facility] Hematocrit (Bld) [Volume fraction] 37.3 % 35.0 - 47.0 % [facility] Hemoglobin (Bld) [Mass/Vol] 11.7 g/dL 11.7 - 16.0 g/dL [facility] [employer] Immature granulocytes (Bld) [#/Vol] 0 10*3/uL NINF - 0.1 10*3/uL [facility] Immature granulocytes/100 WBC (Bld) 0.3 % 0.0 - 2.0 % [facility] Interpretation and review of laboratory results Normal [facility] Lymphocytes (Bld) [#/Vol] 2 10*3/uL 1.0 - 4.3 10*3/uL [facility] Lymphocytes/100 WBC (Bld) 30.5 % 15.0 - 45.0 % [facility] MCH (RBC) [Entitic mass] 30.2 pg 26.0 - 34.0 pg [facility] MCHC (RBC) [Mass/Vol] 31.4 % 30.5 - 36.0 % [facility] MCV (RBC) [Entitic vol] 96.1 fL 77.0 - 99.0 fL [facility] Monocytes (Bld) [#/Vol] 0.7 10*3/uL 0.0 - 0.9 10*3/uL [facility] Monocytes/100 WBC (Bld) 10.5 % 5.0 - 13.0 % [facility] Neutrophils (Bld) [#/Vol] 3.6 10*3/uL 1.8 - 7.5 10*3/uL [facility] Neutrophils/100 WBC (Bld) 54 % 38.0 - 82.0 % [facility] Nucleated RBC/100 WBC (Bld) [Ratio] 0 % [facility] Platelet mean volume (Bld) [Entitic vol] 11.2 fL 9.0 - 12.7 fL [facility] Platelets (Bld) [#/Vol] 229 10*3/uL 140 - 440 10*3/uL [facility] RBC (Bld) [#/Vol] 3.88 10*6/uL 3.80 - 5.20 10*6/uL [facility] WBC (Bld) [#/Vol] 6.7 10*3/uL 3.6 - 10.7 10*3/uL [facility] CBC WITH AUTO DIFFERENTIALon 09-23-2024 Basophils (Bld) [#/Vol] 0.0 10*3/uL Normal 0.0-0.2 [facility] Comment on above: Performed By: #### L [id number] ####Rn Building: MUSHTAQ MAGUIRE ([id number])[facility] ([facility])[address] [place] [address] Basophils/100 WBC (Bld) 0.5 % Normal 0.0-2.0 [facility] Comment on above: Performed By: #### L [id number] ####Rn Building: MUSHTAQ MAGUIRE ([id number])[facility] (SBHLAB)[address] Eosinophils (Bld) [#/Vol] 0.3 10*3/uL Normal 0.0-0.5 [facility] Comment on above: Performed By: #### L [id number] ####Rn Building: MUSHTAQ OMALLEYDIANA ([id number])[facility] (SBAB)[address] Eosinophils/100 WBC (Bld) 4.2 % Normal 0.0-6.0 [facility] Comment on above: Performed By: #### L [id number] ####Rn Building: MUSHTAQ OMALLEYDIANA ([id number])[facility] ([facility])[address] [place] [address] Erythrocyte distribution width (RBC) [Ratio] 13.6 % Normal 11.5-15.0 [facility] Comment on above: Performed By: #### L [id number] ####Rn Building: MUSHTAQ OMALLEYDIANA ([id number])[facility] ([facility])[address] [place] [address] Hematocrit (Bld) [Volume fraction] 37.3 % Normal 35.0-47.0 [facility] Comment on above: Performed By: #### L [id number] ####Rn Building: MUSHTAQ MAGUIRE ([id number])[facility] [place] [address] Hemoglobin (Bld) [Mass/Vol] 11.7 g/dL Normal 11.7-16.0 [facility] Comment on above: Performed By: #### L [id number] ####Rn Building: MUSHTAQ MAGUIRE ([id number])[facility])[address] IMMATURE GRANS % 0.3 % Normal 0.0-2.0 [facility] Comment on above: Performed By: #### L [id number] ####Rn Building: MUSHTAQ MAGUIRE ([id number])[facility]OSPITALJul[facility] MAGALLONJORGE (SBHLAB)[address] IMMATURE GRANS ABSOLUTE 0.0 10*3/uL Normal <0.1 [facility] Comment on above: Performed By: #### L [id number] ####Rn Building: MUSHTAQ OMALLEYDIANA ([id number])[facility]OSPITALJuliana MAGALLONCLOVIS BAPTIST HOSPITALChato (SBHLAB)[address] Lymphocytes (Bld) [#/Vol] 2.0 10*3/uL Normal 1.0-4.3 [facility] Comment on above: Performed By: #### L [id number] ####Rn Building: MUSHTAQ OMALLEYDIANA ([id number])[facility]PITALJuliana MAGALLONCLOVIS BAPTIST HOSPITALChato (SBHLAB)[address] Lymphocytes/100 WBC (Bld) 30.5 % Normal 15.0-45.0 [facility] Comment on above: Performed By: #### L [id number] ####Rn Building: MUSHTAQ OMLALEYDIANA ([id number])[facility]ITALJuliana MAGALLONCLOVIS BAPTIST HOSPITALChato (SBHLAB)[address] MCH (RBC) [Entitic mass] 30.2 pg Normal 26.0-34.0 [facility] Comment on above: Performed By: #### L [id number] ####Rn Building: MUSHTAQ OMALLEYDIANA ([id number])[facility]PITALJuliana MAGALLONCLOVIS BAPTIST HOSPITALChato (SBHLAB)[address] MCHC 31.4 % Normal 30.5-36.0 [facility] Comment on above: Performed By: #### L [id number] ####Rn Building: MUSHTAQ MAGUIRE ([id number])[facility]OSPITALJuliana MAGALLONSHEBAN (SBHLAB)[address] MCV (RBC) [Entitic vol] 96.1 fL Normal 77.0-99.0 [facility] Comment on above: Performed By: #### L [id number] ####Rn Building: MUSHTAQ MAGUIRE ([id number])[facility] (SBHLAB)[address] Monocytes (Bld) [#/Vol] 0.7 10*3/uL Normal 0.0-0.9 [facility] Comment on above: Performed By: #### L [id number] ####Rn Building: MUSHATQ MAGUIRE ([id number])[facility] (SBHLAB)[address] Monocytes/100 WBC (Bld) 10.5 % Normal 5.0-13.0 [facility] Comment on above: Performed By: #### L [id number] ####Rn Building: MUSHTAQ MAGUIRE ([id number])[facility]ITAL[facility] [place] (SBHLAB)[address] NEUTROPHILS ABSOLUTE 3.6 10*3/uL Normal 1.8-7.5 [facility] Comment on above: Performed By: #### L [id number] ####Rn Building: MUSHTAQ MAGUIRE ([id number])[facility]ITALA [place] (SBHLAB)[address] Neutrophils/100 WBC (Bld) 54.0 % Normal 38.0-82.0 [facility] Comment on above: Performed By: #### L [id number] ####Rn Building: MUSHTAQ MAGUIRE ([id number])[facility] [place] (SBHLAB)[address] NRBC 0.0 /100 WBCs Normal 0.0-2.0 [facility] Comment on above: Performed By: #### L [id number] ####Rn Building: MUSHTAQ MAGUIRE ([id number])[facility] [place] (SBHLAB)[address] [place] [address] [place] Platelet mean volume (Bld) [Entitic vol] 11.2 fL Normal 9.0-12.7 [facility] Comment on above: Performed By: #### L [id number] ####Rn Building: MUSHTAQ MAGUIRE ([id number])[facility]IGO [facility] (SBHLAB)[address] Platelets (Bld) [#/Vol] 229 10*3/uL Normal 140-440 [facility] Comment on above: Performed By: #### L [id number] ####Rn Building: MUSHTAQ MAGUIRE ([id number])[facility]OSPITALJuliana HSIEH (SBHLAB)[address] [place] [address] RBC (Bld) [#/Vol] 3.88 10*6/uL Normal 3.80-5.20 [facility] Comment on above: Performed By: #### L [id number] ####Rn Building: MUSHTAQ MAGUIRE ([id number])[facility]ITALJuliana HSIEH (SBHLAB)[address] [place] [address] WBC (Bld) [#/Vol] 6.7 10*3/uL Normal 3.6-10.7 [facility] Comment on above: Performed By: #### L [id number] ####Rn Building: MUSHTAQ MAGUIRE ([id number])[facility]ITALJul[facility] HSIEH (SBHLAB)[address] [place] [address] Laboratory - Chemistry and C hemistry - challengeon 09-23-2024 Glucose [Mass/Vol] 229 mg/dL High 70 - 100 mg/dL [facility] Glucose [Mass/Vol] 186 mg/dL High 70 - 100 mg/dL [facility] Glucose [Mass/Vol] 294 mg/dL High 70 - 100 mg/dL [facility] Glucose [Mass/Vol] 241 mg/dL High 70 - 100 mg/dL [facility] No Panel Informationon 09-23 Interpretation and review of laboratory results Abnormal [facility] Performed by: [facility], [address] [place] [address] CLIA ID: [id number] [facility] Interpretation and review of laboratory results Abnormal [facility] Performed by: [facility], [address] [place] [address] CLIA ID: [id number] [facility] Interpretation and review of laboratory results Abnormal [facility] Performed by: [facility], [address] [facility] [place] [address] CLIA ID: [id number] [facility] Interpretation and review of laboratory results Abnormal [facility] Performed by: [facility], [address] [facility] [place] [address] CLIA ID: [id number] [facility] Progress Noteon 09-23-2024 Progress Note Normal [facility] Progress Note Normal [facility] Progress Note Normal [facility] Progress Note Normal [facility] Progress Note Normal [facility] 25-hydroxyvitamin D3 [Mass/V ol]on 09-22-2024 Interpretation and review of laboratory results Abnormal [facility] Target concentration : 30 - 40 ng/mL; toxicity seen at concentrations >100 ng/mL Therapy is based on measurement of Total 25-OHD with the following classification levels: Less than 20 ng/mL: Indicative of Vit D deficiency 20-30 ng/mL: Suggests Vit D insufficiency Optimal: Greater than or equal to 30 ng/mL Test performed by [employer] Immunoassay, measuring Total Vitamin D, not individual fractions. [facility] 30on 09-22-2024 30 Normal [facility] BASIC METABOLIC PANELon 09-12 Anion gap [Moles/Vol] 10 mmol/L Normal 3-13 [facility] Comment on above: Performed By: #### L AB15 ####Rn Building: MUSHTAQ MAGUIRE ([id number])[facility] (SBHLAB)[address] [place] [address] Calcium [Mass/Vol] 8.9 mg/dL Normal 8.8-10.0 [facility] Comment on above: Performed By: #### L AB15 ####Rn Building: MUSHTAQ MAGUIRE ([id number])[facility] (SBHLAB)[address] [place] [address] Chloride [Moles/Vol] 108 mmol/L High 98-107 [facility] Comment on above: Performed By: #### L AB15 ####Rn Building: MUSHTAQ MAGUIRE ([id number])[facility] (SBHLAB)[address] CO2 [Moles/Vol] 21 mmol/L Low 23-31 [facility] Comment on above: Performed By: #### L AB15 ####Rn Building: MUSHTAQ MAGUIRE ([id number])[facility] (SBHLAB)[address] Creatinine [Mass/Vol] 1.04 mg/dL Normal 0.57-1.11 [facility] Comment on above: Performed By: #### L AB15 ####Rn Building: MUSHTAQ MAGUIRE ([id number])[facility] ([facility])[address] [place] [address] [place] GLOMERULAR FILTRATION RATE ML/MIN/1.73 SQ M.PREDICTED 52.8 mL/min/1.73m*2 Low >60.0 [facility] Comment on above: Result Comment: Calc ulation based on the Chronic Kidney Disease Epidemiology Collaboration (CKD-EPI) equation refit without adjustment for race Performed By: #### L AB15 ####Rn Building: MUSHTAQ MAGUIRE ([id number])[facility] ([facility])[address] [place] [address] [place] Glucose [Mass/Vol] 224 mg/dL High 82-115 [facility] Comment on above: Performed By: #### L AB15 ####Rn Building: MUSHTAQ MAGUIRE ([id number])[facility])[address] [place] [address] [place] Potassium [Moles/Vol] 4.3 mmol/L Normal 3.5-5.1 [facility] Comment on above: Result Comment: [facility] potassium values may be up to 0.5 mmol/L lower than serum values. Performed By: #### L AB15 ####Rn Building: MUSHTAQ MAGUIRE ([id number])[facility])[address] [place] [address] [place] Sodium [Moles/Vol] 139 mmol/L Normal 136-145 [facility] Comment on above: Performed By: #### L AB15 ####Rn Building: MUSHTAQ MAGUIRE ([id number])[facility] YONICLOVIS BAPTIST HOSPITALChato (SBHLAB)[address] Urea nitrogen [Mass/Vol] 29 mg/dL High 9-23 [facility] Comment on above: Performed By: #### L AB15 ####Rn Building: MUSHTAQ MAGUIRE ([id number])[facility] YONICLOVIS BAPTIST HOSPITALChato (SBHLAB)[address] Basic metabolic 1998 panelon 09-22-2024 Anion gap [Moles/Vol] 10 mmol/L 3 - 13 mmol/L [facility] Calcium [Mass/Vol] 8.9 mg/dL 8.8 - 10. 0 mg/dL [facility] Chloride [Moles/Vol] 108 mmol/L High 98 - 10 7 mmol/L [facility] CO2 [Moles/Vol] 21 mmol/L Low 23 - 31 mmol/L [facility] Creatinine [Mass/Vol] 1.04 mg/dL 0.57 - 1.11 mg/dL [facility] GFR/1.73 sq M.predicted (S/P/Bld) [Vol rate/Area] 52.8 mL/min Low - PINF [facility] Comment on above: Calculation based on the Chronic Kidney Disease Epidemiology Collaboration (CKD-EPI) equation refit without adjustment for race Glucose [Mass/Vol] 224 mg/dL High 82 - 115 mg/dL [facility] Interpretation and review of laboratory results Abnormal [facility] Potassium [Moles/Vol] 4.3 mmol/L 3.5 - 5.1 mmol/L [facility] Comment on above: Plasma potassium ashley ues may be up to 0.5 mmol/L lower than serum values. Sodium [Moles/Vol] 139 mmol/L 136 - 145 mmol/L [facility] Urea nitrogen [Mass/Vol] 29 mg/dL High 9 - 23 mg/dL [facility] CBC W Auto Differential pane l (Bld)on 09-22-2024 Basophils (Bld) [#/Vol] 0 10*3/uL 0.0 - 0.2 10*3/uL [facility] Basophils/100 WBC (Bld) 0.4 % 0.0 - 2.0 % [facility] Eosinophils (Bld) [#/Vol] 0.3 10*3/uL 0.0 - 0.5 10*3/uL [facility] Eosinophils/100 WBC (Bld) 4.3 % 0.0 - 6.0 % [facility] Erythrocyte distribution width (RBC) [Ratio] 13.7 % 11.5 - 15.0 % [facility] Hematocrit (Bld) [Volume fraction] 38.1 % 35.0 - 47.0 % [facility] Hemoglobin (Bld) [Mass/Vol] 12.2 g/dL 11.7 - 16.0 g/dL [facility] Immature granulocytes (Bld) [#/Vol] 0 10*3/uL NINF - 0.1 10*3/uL [facility] Immature granulocytes/100 WBC (Bld) 0.4 % 0.0 - 2.0 % [facility] Interpretation and review of laboratory results Normal [facility] Lymphocytes (Bld) [#/Vol] 2 10*3/uL 1.0 - 4.3 10*3/uL [facility] Lymphocytes/100 WBC (Bld) 28.9 % 15.0 - 45.0 % [facility] MCH (RBC) [Entitic mass] 30.7 pg 26.0 - 34.0 pg [facility] MCHC (RBC) [Mass/Vol] 32 % 30.5 - 36.0 % [facility] MCV (RBC) [Entitic vol] 96 fL 77.0 - 99.0 fL [facility] Monocytes (Bld) [#/Vol] 0.7 10*3/uL 0.0 - 0.9 10*3/uL [facility] Monocytes/100 WBC (Bld) 9.6 % 5.0 - 13.0 % [facility] Neutrophils (Bld) [#/Vol] 3.9 10*3/uL 1.8 - 7.5 10*3/uL [facility] Neutrophils/100 WBC (Bld) 56.4 % 38.0 - 82.0 % [facility] Nucleated RBC/100 WBC (Bld) [Ratio] 0 % [facility] Platelet mean volume (Bld) [Entitic vol] 11 fL 9.0 - 12.7 fL [facility] Platelets (Bld) [#/Vol] 225 10*3/uL 140 - 440 10*3/uL [facility] RBC (Bld) [#/Vol] 3.97 10*6/uL 3.80 - 5.20 10*6/uL [facility] WBC (Bld) [#/Vol] 7 10*3/uL 3.6 - 10.7 10*3/uL [facility] CBC WITH AUTO DIFFERENTIALon 09-22-2024 Basophils (Bld) [#/Vol] 0.0 10*3/uL Normal 0.0-0.2 [facility] Comment on above: Performed By: #### L [id number] ####Rn Building: MUSHTAQ MAGUIRE ([id number])[facility] [place] (SBHLAB)[address] Basophils/100 WBC (Bld) 0.4 % Normal 0.0-2.0 [facility] Comment on above: Performed By: #### L [id number] ####Rn Building: MUSHTAQ MAGUIRE ([id number])[facility]ITALA [facility] HOSPITALERT[facility] (SBHLAB)[address] Eosinophils (Bld) [#/Vol] 0.3 10*3/uL Normal 0.0-0.5 [facility] Comment on above: Performed By: #### L [id number] ####Rn Building: MUSHTAQ MAGUIRE ([id number])[facility] [place] (SBHLAB)[address] [place] [address] Eosinophils/100 WBC (Bld) 4.3 % Normal 0.0-6.0 [facility] Comment on above: Performed By: #### L [id number] ####Rn Building: MUSHTAQ MAGUIRE ([id number])[facility] [place] (SBHLAB)[address] Erythrocyte distribution width (RBC) [Ratio] 13.7 % Normal 11.5-15.0 [facility] Comment on above: Performed By: #### L [id number] ####Rn Building: MUSHTAQ MAGUIRE ([id number])[facility] [place] (SBHLAB)[address] Hematocrit (Bld) [Volume fraction] 38.1 % Normal 35.0-47.0 [facility] Comment on above: Performed By: #### L [id number] ####Rn Building: MUSHTAQ OMALLEYDIANA ([id number])[facility] ([facility])[address] Hemoglobin (Bld) [Mass/Vol] 12.2 g/dL Normal 11.7-16.0 [facility] Comment on above: Performed By: #### L [id number] ####Rn Building: MUSHTAQ ANDREZ ([id number])[facility] ([facility])[address] IMMATURE GRANS % 0.4 % Normal 0.0-2.0 [facility] Comment on above: Performed By: #### L [id number] ####Rn Building: MUSHTAQ OMALLEYDIANA ([id number])[facility] ([facility])[address] [place] [address] IMMATURE GRANS ABSOLUTE 0.0 10*3/uL Normal <0.1 [facility] Comment on above: Performed By: #### L [id number] ####Rn Building: MUSHTAQ OMALLEYDIANA ([id number])[facility] ([facility])[address] [place] [address] Lymphocytes (Bld) [#/Vol] 2.0 10*3/uL Normal 1.0-4.3 [facility] Comment on above: Performed By: #### L [id number] ####Rn Building: MUSHTAQ OMALLEYDIANA ([id number])[facility] ([facility])[address] Lymphocytes/100 WBC (Bld) 28.9 % Normal 15.0-45.0 [facility] Comment on above: Performed By: #### L [id number] ####Rn Building: MUSHTAQ OMALLEYDIANA ([id number])[facility] ([facility])[address] [place] [address] MCH (RBC) [Entitic mass] 30.7 pg Normal 26.0-34.0 [facility] Comment on above: Performed By: #### L [id number] ####Rn Building: MUSHTAQ XIEAlinDIANA ([id number])[facility] [place] (SBHLAB)[address] MCHC 32.0 % Normal 30.5-36.0 [facility] Comment on above: Performed By: #### L [id number] ####Rn Building: MUSHTAQ XIEJOAN ([id number])[facility] [place] (SBHLAB)[address] MCV (RBC) [Entitic vol] 96.0 fL Normal 77.0-99.0 [facility] Comment on above: Performed By: #### L [id number] ####Rn Building: MUSHTAQ XIEJOAN ([id number])[facility] [place] (SBHLAB)[address] Monocytes (Bld) [#/Vol] 0.7 10*3/uL Normal 0.0-0.9 [facility] Comment on above: Performed By: #### L [id number] ####Rn Building: UMSHTAQ OMALLEYDIANA ([id number])[facility] [place] (SBHLAB)[address] Monocytes/100 WBC (Bld) 9.6 % Normal 5.0-13.0 [facility] Comment on above: Performed By: #### L [id number] ####Rn Building: MUSHTAQ OMALLEYDIANA ([id number])[facility] [place] (SBHLAB)[address] NEUTROPHILS ABSOLUTE 3.9 10*3/uL Normal 1.8-7.5 [facility] Comment on above: Performed By: #### L [id number] ####Rn Building: MUSHTAQ OMALLEYDIANA ([id number])[facility] [place] (SBHLAB)[address] Neutrophils/100 WBC (Bld) 56.4 % Normal 38.0-82.0 [facility] Comment on above: Performed By: #### L [id number] ####Rn Building: MUSHTAQ MAGUIRE ([id number])[facility] [place] (SBHLAB)[address] NRBC 0.0 /100 WBCs Normal 0.0-2.0 [facility] Comment on above: Performed By: #### L [id number] ####Rn Building: MUSHTAQ MAGUIRE ([id number])[facility] [place] (SBHLAB)[address] Platelet mean volume (Bld) [Entitic vol] 11.0 fL Normal 9.0-12.7 [facility] Comment on above: Performed By: #### L [id number] ####Rn Building: MUSHTAQ MAGUIRE ([id number])[facility] [place] (SBHLAB)[address] Platelets (Bld) [#/Vol] 225 10*3/uL Normal 140-440 [facility] Comment on above: Performed By: #### L [id number] ####Rn Building: MUSHTAQ MAGUIRE ([id number])[facility] [place] (SBHLAB)[address] RBC (Bld) [#/Vol] 3.97 10*6/uL Normal 3.80-5.20 [facility] Comment on above: Performed By: #### L [id number] ####Rn Building: MUSHTAQ MAGUIRE ([id number])[facility] [place] (SBHLAB)[address] [place] [address] [place] WBC (Bld) [#/Vol] 7.0 10*3/uL Normal 3.6-10.7 [facility] Comment on above: Performed By: #### L [id number] ####Rn Building: MUSHTAQ MAGUIRE ([id number])[facility] [place] (SBHLAB)[address] Consulton 09-22-2024 Consult Normal [facility] Laboratory - Chemistry and C hemistry - challengeon 09-22-2024 Glucose [Mass/Vol] 211 mg/dL High 70 - 100 mg/dL [facility] Glucose [Mass/Vol] 281 mg/dL High 70 - 100 mg/dL [facility] Glucose [Mass/Vol] 320 mg/dL High 70 - 100 mg/dL [facility] Glucose [Mass/Vol] 310 mg/dL High 70 - 100 mg/dL [facility] Glucose [Mass/Vol] 268 mg/dL High 70 - 100 mg/dL [facility] 25-hydroxyvitamin D3 [Mass/Vol] 18 ng/mL Low 20 - PINF ng/mL [facility] No Panel Informationon 09-22 Interpretation and review of laboratory results Abnormal [facility] Performed by: [facility], [address] [place] [address], [facility] [address] CLIA ID: [id number] [facility] Interpretation and review of laboratory results Abnormal [facility] Performed by: [facility], [address] [place] [address], [facility] [address] CLIA ID: [id number] [facility] Interpretation and review of laboratory results Abnormal [facility] Performed by: [facility], [address] [place] [address], [facility] [address] CLIA ID: [id number] [facility] Interpretation and review of laboratory results Abnormal [facility] Performed by: [facility], [address] [place] [address], [facility] [address] CLIA ID: [id number] [facility] Interpretation and review of laboratory results Abnormal [facility] Performed by: [facility], [address] [place] [address], [facility] [address] CLIA ID: [id number] [facility] Progress Noteon 09-22-2024 Progress Note Normal [facility] Progress Note Normal [facility] Progress Note Normal [facility] Progress Note Normal [facility] VITAMIN D DEFICIENCY SCREENI NG (VIT D 25)on 09-22-2024 VIT D 25-OH, TOTAL 18 ng/mL Low >20 [facility] Comment on above: Result Comment: [facility] R COMMENTS:Target concentration: 30 - 40 ng/mL; toxicity seen at concentrations >100 ng/mLTherapy is based on measurement of Total 25-OHD with the following classification levels:Less than 20 ng/mL: Indicative of Vit D [id number] ng/mL: Suggests Vit D insufficiencyOptimal: Greater than or equal to 30 ng/mLTest performed by [employer] Immuno[employer], measuring Total Vitamin D, not individual fractions. Performed By: #### L [id number] ####Rn Building: MUSHTAQ MAGUIRE ([id number])[facility]ITAL[facility] YONIJORGE (SBHLAB)[address] [id number] 09-21-2024 [id number] Normal [facility] 36on 09-21-2024 36 Can we see if christa reyes would qualify for Javier 3 Plus. Patient is on Medicare and starting insulin 1 injection daily. Thanks! Normal [facility] BASIC METABOLIC PANELon 09-12 Anion gap [Moles/Vol] 9 mmol/L Normal 3-13 [facility] Comment on above: Performed By: #### L AB129, LAB67, LAB15 ####Rn Building: MUSHTAQ MAGUIRE ([id number])[facility]OSPITALJuliana [facility] HOSPITALChato (SBHLAB)[address] Calcium [Mass/Vol] 8.6 mg/dL Low 8.8-10.0 [facility] Comment on above: Performed By: #### L AB129, LAB67, LAB15 ####Rn Building: MUSHTAQ MAGUIRE ([id number])[facility]ITALJul[facility] YONIJORGE (SBHLAB)155 [place] [address] [place] Chloride [Moles/Vol] 108 mmol/L High 98-107 [facility] Comment on above: Performed By: #### L AB129, LAB67, LAB15 ####Rn Building: MUSHTAQ MAGUIRE ([id number])[facility]ITAL[facility] YONIJORGE (SBHLAB)[address] CO2 [Moles/Vol] 19 mmol/L Low 23-31 [facility] Comment on above: Performed By: #### L AB129, LAB67, LAB15 ####Rn Building: MUSHTAQ MAGUIRE ([id number])[facility]OSPITALJuliana MAGALLONCLOVIS BAPTIST HOSPITALChato (SBHLAB)[address] Creatinine [Mass/Vol] 1.04 mg/dL Normal 0.57-1.11 [facility] Comment on above: Performed By: #### L AB129, LAB67, LAB15 ####Rn Building: MUSHTAQ MAGUIRE ([id number])[facility]ITALJuliana [facility]ALL[facility]ABRA[facility] (SBHLAB)[address] GLOMERULAR FILTRATION RATE ML/MIN/1.73 SQ M.PREDICTED 52.8 mL/min/1.73m*2 Low >60.0 [facility] Comment on above: Result Comment: Calc ulation based on the Chronic Kidney Disease Epidemiology Collaboration (CKD-EPI) equation refit without adjustment for race Performed By: #### L AB129, LAB67, LAB15 ####Rn Building: MUSHTAQ MAGUIRE ([id number])[facility]OSPITALJuliana OXFORD (HLAB)[address] Glucose [Mass/Vol] 265 mg/dL High 82-115 [facility] Comment on above: Performed By: #### L AB129, LAB67, LAB15 ####Rn Building: MUSHTAQ MAGUIRE ([id number])[facility] [place] [address] Potassium [Moles/Vol] 4.3 mmol/L Normal 3.5-5.1 [facility] Comment on above: Result Comment: [facility] potassium values may be up to 0.5 mmol/L lower than serum values. Performed By: #### L AB129, LAB67, LAB15 ####Rn Building: MUSHTAQ MAGUIRE ([id number])[facility]OSPITALJuliana OXFORD (SBHLAB)155 [place] [address] [place] Sodium [Moles/Vol] 136 mmol/L Normal 136-145 [facility] Comment on above: Performed By: #### L AB129, LAB67, LAB15 ####Rn Building: MUSHTAQ MAGUIRE ([id number])[facility] (SBHLAB)[address] Urea nitrogen [Mass/Vol] 29 mg/dL High 9-23 [facility] Comment on above: Performed By: #### L AB129, LAB67, LAB15 ####Rn Building: MUSHTAQ MAGUIRE ([id number])[facility] (SBHLAB)[address] Basic metabolic 1998 panelon 09-21-2024 Anion gap [Moles/Vol] 9 mmol/L 3 - 13 mmol/L [facility] Calcium [Mass/Vol] 8.6 mg/dL Low 8.8 - 10. 0 mg/dL [facility] Chloride [Moles/Vol] 108 mmol/L High 98 - 10 7 mmol/L [facility] CO2 [Moles/Vol] 19 mmol/L Low 23 - 31 mmol/L [facility] Creatinine [Mass/Vol] 1.04 mg/dL 0.57 - 1.11 mg/dL [facility] GFR/1.73 sq M.predicted (S/P/Bld) [Vol rate/Area] 52.8 mL/min Low - PINF [facility] Comment on above: Calculation based on the Chronic Kidney Disease Epidemiology Collaboration (CKD-EPI) equation refit without adjustment for race Glucose [Mass/Vol] 265 mg/dL High 82 - 115 mg/dL [facility] Interpretation and review of laboratory results Abnormal [facility] Potassium [Moles/Vol] 4.3 mmol/L 3.5 - 5.1 mmol/L [facility] Comment on above: Plasma potassium ashley ues may be up to 0.5 mmol/L lower than serum values. Sodium [Moles/Vol] 136 mmol/L 136 - 145 mmol/L [facility] Urea nitrogen [Mass/Vol] 29 mg/dL High 9 - 23 mg/dL [facility] CBC W Auto Differential pane l (Bld)on 09-21-2024 Basophils (Bld) [#/Vol] 0 10*3/uL 0.0 - 0.2 10*3/uL [facility] Basophils/100 WBC (Bld) 0.5 % 0.0 - 2.0 % [facility] Eosinophils (Bld) [#/Vol] 0.2 10*3/uL 0.0 - 0.5 10*3/uL [facility] Eosinophils/100 WBC (Bld) 2.9 % 0.0 - 6.0 % [facility] Erythrocyte distribution width (RBC) [Ratio] 13.3 % 11.5 - 15.0 % [facility] Hematocrit (Bld) [Volume fraction] 36.5 % 35.0 - 47.0 % [facility] Hemoglobin (Bld) [Mass/Vol] 11.7 g/dL 11.7 - 16.0 g/dL [facility] Immature granulocytes (Bld) [#/Vol] 0 10*3/uL NINF - 0.1 10*3/uL [facility] Immature granulocytes/100 WBC (Bld) 0.5 % 0.0 - 2.0 % [facility] Interpretation and review of laboratory results Normal [facility] Lymphocytes (Bld) [#/Vol] 1.7 10*3/uL 1.0 - 4.3 10*3/uL [facility] Lymphocytes/100 WBC (Bld) 21.6 % 15.0 - 45.0 % [facility] MCH (RBC) [Entitic mass] 30.8 pg 26.0 - 34.0 pg [facility] MCHC (RBC) [Mass/Vol] 32.1 % 30.5 - 36.0 % [facility] MCV (RBC) [Entitic vol] 96.1 fL 77.0 - 99.0 fL [facility] Monocytes (Bld) [#/Vol] 0.8 10*3/uL 0.0 - 0.9 10*3/uL [facility] Monocytes/100 WBC (Bld) 10.2 % 5.0 - 13.0 % [facility] Neutrophils (Bld) [#/Vol] 5 10*3/uL 1.8 - 7.5 10*3/uL [facility] Neutrophils/100 WBC (Bld) 64.3 % 38.0 - 82.0 % [facility] Nucleated RBC/100 WBC (Bld) [Ratio] 0 % [facility] Platelet mean volume (Bld) [Entitic vol] 11.3 fL 9.0 - 12.7 fL [facility] Platelets (Bld) [#/Vol] 222 10*3/uL 140 - 440 10*3/uL [facility] RBC (Bld) [#/Vol] 3.8 10*6/uL 3.80 - 5.20 10*6/uL [facility] WBC (Bld) [#/Vol] 7.8 10*3/uL 3.6 - 10.7 10*3/uL [facility] CBC WITH AUTO DIFFERENTIALon 09-21-2024 Basophils (Bld) [#/Vol] 0.0 10*3/uL Normal 0.0-0.2 [facility] Comment on above: Performed By: #### L [id number] ####Rn Building: MUSHTAQ MAGUIRE ([id number])[facility]ITALA [place] (SBHLAB)[address] Basophils/100 WBC (Bld) 0.5 % Normal 0.0-2.0 [facility] Comment on above: Performed By: #### L [id number] ####Rn Building: MUSHTAQ MAGUIRE ([id number])[facility] [place] (SBHLAB)[address] Eosinophils (Bld) [#/Vol] 0.2 10*3/uL Normal 0.0-0.5 [facility] Comment on above: Performed By: #### L [id number] ####Rn Building: MUSHTAQ MAGUIRE ([id number])[facility] [place] (SBHLAB)[address] Eosinophils/100 WBC (Bld) 2.9 % Normal 0.0-6.0 [facility] Comment on above: Performed By: #### L [id number] ####Rn Building: MUSHTAQ MAGUIRE ([id number])[facility] [place] (SBHLAB)[address] Erythrocyte distribution width (RBC) [Ratio] 13.3 % Normal 11.5-15.0 [facility] Comment on above: Performed By: #### L [id number] ####Rn Building: MUSHTAQ MAGUIRE ([id number])[facility] [place] (SBHLAB)[address] [place] [address] [place] Hematocrit (Bld) [Volume fraction] 36.5 % Normal 35.0-47.0 [facility] Comment on above: Performed By: #### L [id number] ####Rn Building: MUSHTAQ XIEAlinDIANA ([id number])[facility])[address] Hemoglobin (Bld) [Mass/Vol] 11.7 g/dL Normal 11.7-16.0 [facility] Comment on above: Performed By: #### L [id number] ####Rn Building: MUSHTAQ ANDREZ ([id number])[facility] ([facility])[address] IMMATURE GRANS % 0.5 % Normal 0.0-2.0 [facility] Comment on above: Performed By: #### L [id number] ####Rn Building: MUSHTAQ XIEJOAN ([id number])[facility] ([facility])[address] IMMATURE GRANS ABSOLUTE 0.0 10*3/uL Normal <0.1 [facility] Comment on above: Performed By: #### L [id number] ####Rn Building: MUSHTAQ OMALLEYDIANA ([id number])[facility] ([facility])[address] [place] [address] Lymphocytes (Bld) [#/Vol] 1.7 10*3/uL Normal 1.0-4.3 [facility] Comment on above: Performed By: #### L [id number] ####Rn Building: MUSHTAQ OMALLEYDIANA ([id number])[facility])[address] Lymphocytes/100 WBC (Bld) 21.6 % Normal 15.0-45.0 [facility] Comment on above: Performed By: #### L [id number] ####Rn Building: MUSHTAQ OMALLEYDIANA ([id number])[facility])[address] MCH (RBC) [Entitic mass] 30.8 pg Normal 26.0-34.0 [facility] Comment on above: Performed By: #### L [id number] ####Rn Building: MUSHTAQ OMALLEYDIANA ([id number])[facility] [place] (SBHLAB)[address] MCHC 32.1 % Normal 30.5-36.0 [facility] Comment on above: Performed By: #### L [id number] ####Rn Building: MUSHTAQ OMALLEYDIANA ([id number])[facility] [place] (SBHLAB)[address] MCV (RBC) [Entitic vol] 96.1 fL Normal 77.0-99.0 [facility] Comment on above: Performed By: #### L [id number] ####Rn Building: MUSHTAQ XIEJOAN ([id number])[facility] [place] (SBHLAB)[address] [place] [address] [place] Monocytes (Bld) [#/Vol] 0.8 10*3/uL Normal 0.0-0.9 [facility] Comment on above: Performed By: #### L [id number] ####Rn Building: MUSHTAQ OMALLEYDIANA ([id number])[facility] [place] (SBHLAB)[address] Monocytes/100 WBC (Bld) 10.2 % Normal 5.0-13.0 [facility] Comment on above: Performed By: #### L [id number] ####Rn Building: MUSHTAQ OMALLEYDIANA ([id number])[facility] [place] (SBHLAB)[address] NEUTROPHILS ABSOLUTE 5.0 10*3/uL Normal 1.8-7.5 [facility] Comment on above: Performed By: #### L [id number] ####Rn Building: MUSHTAQ OMALLEYDIANA ([id number])[facility] [place] (SBHLAB)[address] [place] [address] [place] Neutrophils/100 WBC (Bld) 64.3 % Normal 38.0-82.0 [facility] Comment on above: Performed By: #### L [id number] ####Rn Building: MUSHTAQ MAGUIRE ([id number])[facility] [place] (SBHLAB)[address] NRBC 0.0 /100 WBCs Normal 0.0-2.0 [facility] Comment on above: Performed By: #### L [id number] ####Rn Building: MUSHTAQ MAGUIRE ([id number])[facility] [place] (SBHLAB)[address] Platelet mean volume (Bld) [Entitic vol] 11.3 fL Normal 9.0-12.7 [facility] Comment on above: Performed By: #### L [id number] ####Rn Building: MUSHTAQ MAGUIRE ([id number])[facility] (SBHLAB)[address] Platelets (Bld) [#/Vol] 222 10*3/uL Normal 140-440 [facility] Comment on above: Performed By: #### L [id number] ####Rn Building: MUSHTAQ MAGUIRE ([id number])[facility] [place] (SBHLAB)[address] RBC (Bld) [#/Vol] 3.80 10*6/uL Normal 3.80-5.20 [facility] Comment on above: Performed By: #### L [id number] ####Rn Building: MUSHTAQ MAGUIRE ([id number])[facility] [place] (SBHLAB)[address] WBC (Bld) [#/Vol] 7.8 10*3/uL Normal 3.6-10.7 [facility] Comment on above: Performed By: #### L [id number] ####Rn Building: MUSHTAQ MAGUIRE ([id number])[facility]A [facility] (SBHLAB)[address] Consulton 09-21-2024 Consult Normal [facility] Consult Normal [facility] Consult Normal [facility] GLUTAMIC ACID DECARBOXYLASE (BKR [facility]ST)on 09-21-2024 [facility] GLUTAMIC ACID DECARBOXYLASE 65 AB <5 Normal <5 [facility] Comment on above: Result Comment: This test was performed using the GAD65 ROSALVA method,which is standardized against the Internationalreference preparation 97/550.Test Performed by [facility]The [facility] [place],[address] [place] [id number] Rangel M.D., Ph.D., Director of [phone], CLIA [id number] Performed By: #### L AB650, [id number], QCO259, [id number] ####[facility] (AMDBEAKER)[address] [place], [place] INSULIN ANTIBODY (BKR [facility]) on 09-21-2024 [facility] INSULIN AUTOANTIBODY <0.4 Normal <0.4 [facility] Comment on above: Result Comment: Test performed by [facility] [place] [id number] [place] [address] Fjjhlha Director: Elen Foreman MD,PHD,MBATest Reported by [facility]The [facility] [place],[address] [place] [id number] Rangel M.D., Ph.D., Director of [phone], CLIA [id number] Performed By: #### L AB650, [id number], [id number], [id number] ####[facility] (AMDBEAKER)[address] [place] ISLET CELL ANTIBODY SCREEN W ITH REFLEX TO TITER (BKR [facility]ST)on 09-21-2024 [facility] ISLET CELL AB SCREEN Negative Normal NEGATIVE [facility] Comment on above: Result Comment: This test was developed and its analyticalperformance characteristics have been determinedby [employer]. It has not been cleared orapproved by FDA. This assay has been validatedpursuant to the CLIA regulations and is used forclinical purposes.Test performed by [facility] [place] [address] [place] [address] Lmyijmi Director: Elen Foreman MD,PHD,MBATest Reported by Rolando Cardenas,[employer] [facility],[address] [place], [place] [address]Zagbmlvkelton Rangel M.D., Ph.D., Director of [phone], CLIA [id number] Performed By: #### L AB650, [id number], [id number], [id number] ####[email or web address] (AMDBEAKER)[address] [place], [place] [facility] Laboratory - Chemistry and C hemistry - challengeon 09-21-2024 Glucose [Mass/Vol] 200 mg/dL High 70 - 100 mg/dL [facility] Glucose [Mass/Vol] 255 mg/dL High 70 - 100 mg/dL [facility] [employer] Cobalamin (Vitamin B12) [Mass/Vol] 332 pg/mL 213 - 816 pg/mL [facility] [employer] TSH Qn 3.34 m[IU]/L [facility] [employer] Glucose [Mass/Vol] 261 mg/dL High 70 - 100 mg/dL [facility] Glucose [Mass/Vol] 265 mg/dL High 70 - 100 mg/dL [facility] [employer] No Panel Informationon 09-21 Interpretation and review of laboratory results Abnormal [facility] Performed by: [facility], [address] [place] [address] CLIA ID: [id number] [facility] [employer] [facility] Interpretation and review of laboratory results Abnormal [facility] Performed by: [facility], [address] [place] [address] CLIA ID: [id number] [facility] [employer] [facility] Interpretation and review of laboratory results Normal [facility] [employer] [facility] Interpretation and review of laboratory results Abnormal [facility] Performed by: [facility], [address] [facility] [address] CLIA ID: [id number] [facility] [employer] [facility] Interpretation and review of laboratory results Abnormal [facility] Performed by: [facility], [address] [place] [address] CLIA ID: [id number] [facility] Progress Noteon 09-21-2024 Progress Note Normal [facility] THYROID STIMULATING HORMONEo n 09-21-2024 THYROID STIMULATING HORMONE 3.34 uIU/mL Normal 0.35-4.94 [facility] Comment on above: Performed By: #### L AB129, LAB67, LAB15 ####Rn Building: MUSHTAQ MAGUIRE ([id number])[facility] (SBHLAB)[address] VITAMIN B12on 09-21-2024 Cobalamin (Vitamin B12) [Mass/Vol] 332 pg/mL Normal 213-816 [facility] Comment on above: Performed By: #### L AB129, LAB67, LAB15 ####Rn Building: MUSHTAQ MAGUIRE ([id number])[facility] (SBHLAB)[address] [employer] 8 ANTIBODY (BKR [facility])on 09-21-2024 [facility] [employer] 8 (ZNT8) ANTIBODY <10 Normal <15 [facility] Comment on above: Result Comment: For additional information, please refer tohttp://education.[employer]/faq/EOP074(This link is being provided forinformation/educational purposes only.)Test performed by [employer] [address] [place] [address] [employer] Director: Elen Foreman MD,PHD,MBATest Reported by [employer],[facility] [place],[address] [place] [id number] Rangel M.D., Ph.D., Director of [phone], CLIA [id number] Performed By: #### L AB650, [id number], [id number], [id number] ####[facility] (AMDBEAKER)[address] [place] [address] [facility] BASIC METABOLIC PANELon Anion gap [Moles/Vol] 8 mmol/L Normal 3-13 [facility] Comment on above: Performed By: #### L AB15 ####Rn Building: MUSHTAQ MAGUIRE ([id number])[facility] [place] (SBHLAB)[address] Calcium [Mass/Vol] 9.7 mg/dL Normal 8.8-10.0 [facility] Comment on above: Performed By: #### L AB15 ####Rn Building: MUSHTAQ MAGUIRE ([id number])[facility] [place] (SBHLAB)[address] Chloride [Moles/Vol] 110 mmol/L High 98-107 [facility] Comment on above: Performed By: #### L AB15 ####Rn Building: MUSHTAQ MAGUIRE ([id number])[facility] [place] (SBHLAB)[address] CO2 [Moles/Vol] 21 mmol/L Low 23-31 [facility] Comment on above: Performed By: #### L AB15 ####Rn Building: MUSHTAQ MAGUIRE ([id number])[facility] [place] (SBHLAB)[address] Creatinine [Mass/Vol] 1.03 mg/dL Normal 0.57-1.11 [facility] Comment on above: Performed By: #### L AB15 ####Rn Building: MUSHTAQ MAGUIRE ([id number])[facility] [place] (SBHLAB)[address] GLOMERULAR FILTRATION RATE ML/MIN/1.73 SQ M.PREDICTED 53.4 mL/min/1.73m*2 Low >60.0 [facility] Comment on above: Result Comment: Calc ulation based on the Chronic Kidney Disease Epidemiology Collaboration (CKD-EPI) equation refit without adjustment for race Performed By: #### L AB15 ####Rn Building: MUSHTAQ MAGUIRE ([id number])[facility] [place] (SBHLAB)[address] [place] [address] [place] Glucose [Mass/Vol] 216 mg/dL High 82-115 [facility] Comment on above: Performed By: #### L AB15 ####Rn Building: MUSHTAQ MAGUIRE ([id number])[facility] (SBHLAB)[address] Potassium [Moles/Vol] 4.3 mmol/L Normal 3.5-5.1 [facility] Comment on above: Result Comment: [facility] potassium values may be up to 0.5 mmol/L lower than serum values. Performed By: #### L AB15 ####Rn Building: MUSHTAQ MAGUIRE ([id number])[facility] (SBHLAB)[address] Sodium [Moles/Vol] 139 mmol/L Normal 136-145 [facility] Comment on above: Performed By: #### L AB15 ####Rn Building: MUSHTAQ MAGUIRE ([id number])[facility] (SBHLAB)[address] [place] [address] Urea nitrogen [Mass/Vol] 22 mg/dL Normal 9-23 [facility] Comment on above: Performed By: #### L AB15 ####Rn Building: MUSHTAQ MAGUIRE ([id number])[facility] (HLAB)[address] [place] [address] Basic metabolic 1998 panelon 09-20-2024 Anion gap [Moles/Vol] 8 mmol/L 3 - 13 mmol/L [facility] Calcium [Mass/Vol] 9.7 mg/dL 8.8 - 10. 0 mg/dL [facility] Chloride [Moles/Vol] 110 mmol/L High 98 - 10 7 mmol/L [facility] CO2 [Moles/Vol] 21 mmol/L Low 23 - 31 mmol/L [facility] Creatinine [Mass/Vol] 1.03 mg/dL 0.57 - 1.11 mg/dL [facility] GFR/1.73 sq M.predicted (S/P/Bld) [Vol rate/Area] 53.4 mL/min Low - PINF [facility] Comment on above: Calculation based on the Chronic Kidney Disease Epidemiology Collaboration (CKD-EPI) equation refit without adjustment for race Glucose [Mass/Vol] 216 mg/dL High 82 - 115 mg/dL [facility] Interpretation and review of laboratory results Abnormal [facility] Potassium [Moles/Vol] 4.3 mmol/L 3.5 - 5.1 mmol/L [facility] Comment on above: Plasma potassium ashley ues may be up to 0.5 mmol/L lower than serum values. Sodium [Moles/Vol] 139 mmol/L 136 - 145 mmol/L [facility] Urea nitrogen [Mass/Vol] 22 mg/dL 9 - 23 mg/dL [facility] CBC W Auto Differential pane l (Bld)on 09-20-2024 Basophils (Bld) [#/Vol] 0.1 10*3/uL 0.0 - 0.2 10*3/uL [facility] Basophils/100 WBC (Bld) 0.7 % 0.0 - 2.0 % [facility] Eosinophils (Bld) [#/Vol] 0.3 10*3/uL 0.0 - 0.5 10*3/uL [facility] Eosinophils/100 WBC (Bld) 3.8 % 0.0 - 6.0 % [facility] Erythrocyte distribution width (RBC) [Ratio] 13.4 % 11.5 - 15.0 % [facility] Hematocrit (Bld) [Volume fraction] 40.6 % 35.0 - 47.0 % [facility] Hemoglobin (Bld) [Mass/Vol] 13.1 g/dL 11.7 - 16.0 g/dL [facility] Immature granulocytes (Bld) [#/Vol] 0 10*3/uL NINF - 0.1 10*3/uL [facility] Immature granulocytes/100 WBC (Bld) 0.5 % 0.0 - 2.0 % [facility] Interpretation and review of laboratory results Normal [facility] Lymphocytes (Bld) [#/Vol] 2.3 10*3/uL 1.0 - 4.3 10*3/uL [facility] Lymphocytes/100 WBC (Bld) 27.7 % 15.0 - 45.0 % [facility] MCH (RBC) [Entitic mass] 30.8 pg 26.0 - 34.0 pg [facility] MCHC (RBC) [Mass/Vol] 32.3 % 30.5 - 36.0 % [facility] MCV (RBC) [Entitic vol] 95.5 fL 77.0 - 99.0 fL [facility] Monocytes (Bld) [#/Vol] 0.6 10*3/uL 0.0 - 0.9 10*3/uL [facility] Monocytes/100 WBC (Bld) 7.6 % 5.0 - 13.0 % [facility] Neutrophils (Bld) [#/Vol] 5 10*3/uL 1.8 - 7.5 10*3/uL [facility] Neutrophils/100 WBC (Bld) 59.7 % 38.0 - 82.0 % [facility] Nucleated RBC/100 WBC (Bld) [Ratio] 0 % [facility] [employer] Platelet mean volume (Bld) [Entitic vol] 10.9 fL 9.0 - 12.7 fL [facility] Platelets (Bld) [#/Vol] 254 10*3/uL 140 - 440 10*3/uL [facility] RBC (Bld) [#/Vol] 4.25 10*6/uL 3.80 - 5.20 10*6/uL [facility] WBC (Bld) [#/Vol] 8.4 10*3/uL 3.6 - 10.7 10*3/uL [facility] CBC WITH AUTO DIFFERENTIALon 09-20-2024 Basophils (Bld) [#/Vol] 0.1 10*3/uL Normal 0.0-0.2 [facility] Comment on above: Performed By: #### L [id number] ####Rn Building: MUSHTAQ MAGUIRE ([id number])[facility] ([facility])[address] [place] [address] Basophils/100 WBC (Bld) 0.7 % Normal 0.0-2.0 [facility] Comment on above: Performed By: #### L [id number] ####Rn Building: MUSHTAQ MAGUIRE ([id number])[facility] [place] [address] Eosinophils (Bld) [#/Vol] 0.3 10*3/uL Normal 0.0-0.5 [facility] Comment on above: Performed By: #### L [id number] ####Rn Building: MUSHTAQ XIEAlinDIANA ([id number])[facility] [place] [address] Eosinophils/100 WBC (Bld) 3.8 % Normal 0.0-6.0 [facility] Comment on above: Performed By: #### L [id number] ####Rn Building: MUSHTAQ ANDREZ ([id number])[facility])[address] Erythrocyte distribution width (RBC) [Ratio] 13.4 % Normal 11.5-15.0 [facility] Comment on above: Performed By: #### L [id number] ####Rn Building: MUSHTAQ ANDREZ ([id number])[facility] ([facility])[address] [place] [address] Hematocrit (Bld) [Volume fraction] 40.6 % Normal 35.0-47.0 [facility] Comment on above: Performed By: #### L [id number] ####Rn Building: MUSHTAQ ANDREZ ([id number])[facility] ([facility])[address] [place] [address] Hemoglobin (Bld) [Mass/Vol] 13.1 g/dL Normal 11.7-16.0 [facility] Comment on above: Performed By: #### L [id number] ####Rn Building: MUSHTAQ OMALLEYDIANA ([id number])[facility] [place] [address] IMMATURE GRANS % 0.5 % Normal 0.0-2.0 [facility] Comment on above: Performed By: #### L [id number] ####Rn Building: MUSHTAQ OMALLEYDIANA ([id number])[facility] ([facility])[address] [place] [address] IMMATURE GRANS ABSOLUTE 0.0 10*3/uL Normal <0.1 [facility] Comment on above: Performed By: #### L [id number] ####Rn Building: MUSHTAQ MAGUIRE ([id number])[facility] ([facility])[address] Lymphocytes (Bld) [#/Vol] 2.3 10*3/uL Normal 1.0-4.3 [facility] Comment on above: Performed By: #### L [id number] ####Rn Building: MUSHTAQ ANDREZ ([id number])[facility] (SB[facility])[address] Lymphocytes/100 WBC (Bld) 27.7 % Normal 15.0-45.0 [facility] Comment on above: Performed By: #### L [id number] ####Rn Building: MUSHTAQ MAGUIRE ([id number])[facility] ([facility])[address] [place] [address] MCH (RBC) [Entitic mass] 30.8 pg Normal 26.0-34.0 [facility] Comment on above: Performed By: #### L [id number] ####Rn Building: MUSHTAQ MAGUIRE ([id number])[facility] (SBHLAB)[address] [place] [address] MCHC 32.3 % Normal 30.5-36.0 [facility] Comment on above: Performed By: #### L [id number] ####Rn Building: MUSHTAQ ANDREZ ([id number])[facility] (SB[facility])[address] [place] [address] MCV (RBC) [Entitic vol] 95.5 fL Normal 77.0-99.0 [facility] Comment on above: Performed By: #### L [id number] ####Rn Building: MUSHTAQ ANDREZ ([id number])[facility] ([facility])[address] [place] [address] Monocytes (Bld) [#/Vol] 0.6 10*3/uL Normal 0.0-0.9 [facility] Comment on above: Performed By: #### L [id number] ####Rn Building: MUSHTAQ MAGUIRE ([id number])[facility] [place] (SBHLAB)[address] Monocytes/100 WBC (Bld) 7.6 % Normal 5.0-13.0 [facility] Comment on above: Performed By: #### L [id number] ####Rn Building: MUSHTAQ MAGUIRE ([id number])[facility] [place] (SBHLAB)[address] NEUTROPHILS ABSOLUTE 5.0 10*3/uL Normal 1.8-7.5 [facility] Comment on above: Performed By: #### L [id number] ####Rn Building: MUSHTAQ MAGUIRE ([id number])[facility] [place] (SBHLAB)[address] Neutrophils/100 WBC (Bld) 59.7 % Normal 38.0-82.0 [facility] Comment on above: Performed By: #### L [id number] ####Rn Building: MUSHTAQ MAGUIRE ([id number])[facility] [place] (SBHLAB)[address] NRBC 0.0 /100 WBCs Normal 0.0-2.0 [facility] Comment on above: Performed By: #### L [id number] ####Rn Building: MUSHTAQ MAGUIRE ([id number])[facility] [place] (SBHLAB)[address] Platelet mean volume (Bld) [Entitic vol] 10.9 fL Normal 9.0-12.7 [facility] Comment on above: Performed By: #### L [id number] ####Rn Building: MUSHTAQ MAGUIRE ([id number])[facility] [place] (SBHLAB)[address] Platelets (Bld) [#/Vol] 254 10*3/uL Normal 140-440 [facility] Comment on above: Performed By: #### L [id number] ####Rn Building: MUSHTAQ MAGUIRE ([id number])[facility] [place] (SBHLAB)[address] RBC (Bld) [#/Vol] 4.25 10*6/uL Normal 3.80-5.20 [facility] Comment on above: Performed By: #### L [id number] ####Rn Building: MUSHTAQYVON MAGUIRE ([id number])[facility] (SBHLAB)[address] WBC (Bld) [#/Vol] 8.4 10*3/uL Normal 3.6-10.7 [facility] Comment on above: Performed By: #### L [id number] ####Rn Building: MUSHTAQ ANDREZ ([id number])[facility] (SBHLAB)[address] [place] [address] HEMOGLOBIN A1Con 09-20-2024 Glucose [Mass/Vol] 303 mg/dL Normal [facility] Comment on above: Result Comment: CARLTON Geiger COMMENTS:HbA1c values of 5.7-6.4 percent indicate an increased risk for developing diabetes mellitus. HbA1c values greater than or equal to 6.5 percent are diagnostic of diabetes mellitus. For diagnosis of diabetes in individuals without unequivocal hyperglycemia, results should be confirmed by repeat testing. Performed By: #### L AB90 ####Rn Building: MUSHTAQYVON MAGUIRE ([id number])[facility] (SBHLAB)[address] [place] [address] HEMOGLOBIN A1C 12.2 %HbA1C High <5.7 [facility] Comment on above: Result Comment: Norm al less than 5.7%Prediabetes 5.7% to 6.4%Diabetes 6.5% or higher--HgbA1C levels may not be accurate in patients who have renal disease, received recent blood transfusions, are anemic, or who have dyshemoglobinemia. Performed By: #### L AB90 ####Rn Building: MUSHTAQ ANDREZ ([id number])[facility] (SBHLAB)[address] Laboratory - Chemistry and C hemistry - challengeon 09-20-2024 Glucose [Mass/Vol] 155 mg/dL High 70 - 100 mg/dL [facility] Glucose [Mass/Vol] 168 mg/dL High 70 - 100 mg/dL [facility] Glucose [Mass/Vol] 266 mg/dL High 70 - 100 mg/dL [facility] Glucose [Mass/Vol] 251 mg/dL High 70 - 100 mg/dL [facility] Average glucose Estimated from glycated hemoglobin (Bld) [Mass/Vol] 303 mg/dL [facility] Laboratory - Hematology and Cell countson 09-20-2024 HbA1c (Bld) [Mass fraction] 12.2 % High NINF [facility] Comment on above: Normal less than 5.7 % Prediabetes 5.7% to 6.4% Diabetes 6.5% or higher --HgbA1C levels may not be accurate in patients who have renal disease, received recent blood transfusions, are anemic, or who have dyshemoglobinemia. No Panel Informationon 09-20 Interpretation and review of laboratory results Abnormal [facility] Performed by: [facility], [address] [place] [address] CLIA ID: [id number] [facility] [employer] [facility] Interpretation and review of laboratory results Abnormal [facility] Performed by: [facility], [address] [place] [address] CLIA ID: [id number] [facility] Interpretation and review of laboratory results Abnormal [facility] Performed by: [facility], [address] [place] [address] CLIA ID: [id number] [facility] Interpretation and review of laboratory results Abnormal [facility] Performed by: [facility], [address] [place] [address] CLIA ID: [id number] [facility] Interpretation and review of laboratory results Abnormal [facility] HbA1c values of 5.7- 6.4 percent indicate an increased risk for developing diabetes mellitus. HbA1c values greater than or equal to 6.5 percent are diagnostic of diabetes mellitus. For diagnosis of diabetes in individuals without unequivocal hyperglycemia, results should be confirmed by repeat testing. [facility] Progress Noteon 09-20-2024 Progress Note Normal [facility] BASIC METABOLIC PANELon - Anion gap [Moles/Vol] 10 mmol/L Normal 3-13 [facility] Comment on above: Performed By: #### L AB15 ####Rn Building: MUSHTAQ MAGUIRE ([id number])[facility] [place] (SBHLAB)[address] Calcium [Mass/Vol] 9.4 mg/dL Normal 8.8-10.0 [facility] Comment on above: Performed By: #### L AB15 ####Rn Building: MUSHTAQ MAGUIRE ([id number])[facility] [place] (SBHLAB)[address] Chloride [Moles/Vol] 106 mmol/L Normal 98-107 [facility] Comment on above: Performed By: #### L AB15 ####Rn Building: MUSHTAQ MAGUIRE ([id number])[facility] [place] (SBHLAB)[address] CO2 [Moles/Vol] 21 mmol/L Low 23-31 [facility] Comment on above: Performed By: #### L AB15 ####Rn Building: MUSHTAQ MAGUIRE ([id number])[facility] [place] (SBHLAB)[address] Creatinine [Mass/Vol] 1.10 mg/dL Normal 0.57-1.11 [facility] Comment on above: Performed By: #### L AB15 ####Rn Building: MUSHTAQ MAGUIRE ([id number])[facility] [place] (SBHLAB)[address] [place] [address] [place] GLOMERULAR FILTRATION RATE ML/MIN/1.73 SQ M.PREDICTED 49.3 mL/min/1.73m*2 Low >60.0 [facility] Comment on above: Result Comment: Calc ulation based on the Chronic Kidney Disease Epidemiology Collaboration (CKD-EPI) equation refit without adjustment for race Performed By: #### L AB15 ####Rn Building: MUSHTAQ MAGUIRE ([id number])[facility] CRISELDAChat[facility] (SBHLAB)[address] Glucose [Mass/Vol] 286 mg/dL High 82-115 [facility] Comment on above: Performed By: #### L AB15 ####Rn Building: MUSHTAQ MAGUIRE ([id number])[facility] HSIEH (SBHLAB)[address] Potassium [Moles/Vol] 4.0 mmol/L Normal 3.5-5.1 [facility] Comment on above: Result Comment: [facility] potassium values may be up to 0.5 mmol/L lower than serum values. Performed By: #### L AB15 ####Rn Building: MUSHTAQ MAGUIRE ([id number])[facility] ABURTOChato (SBHLAB)[address] Sodium [Moles/Vol] 137 mmol/L Normal 136-145 [facility] Comment on above: Performed By: #### L AB15 ####Rn Building: MUSHTAQ MAGUIRE ([id number])[facility] (HLAB)[address] Urea nitrogen [Mass/Vol] 24 mg/dL High 9-23 [facility] Comment on above: Performed By: #### L AB15 ####Rn Building: MUSHTAQ MAGUIRE ([id number])[facility] (HLAB)[address] [place] [address] Basic metabolic 1998 panelon 09-19-2024 Anion gap [Moles/Vol] 10 mmol/L 3 - 13 mmol/L [facility] Calcium [Mass/Vol] 9.4 mg/dL 8.8 - 10. 0 mg/dL [facility] Chloride [Moles/Vol] 106 mmol/L 98 - 10 7 mmol/L [facility] CO2 [Moles/Vol] 21 mmol/L Low 23 - 31 mmol/L [facility] Creatinine [Mass/Vol] 1.1 mg/dL 0.57 - 1.11 mg/dL [facility] GFR/1.73 sq M.predicted (S/P/Bld) [Vol rate/Area] 49.3 mL/min Low - PINF [facility] Comment on above: Calculation based on the Chronic Kidney Disease Epidemiology Collaboration (CKD-EPI) equation refit without adjustment for race Glucose [Mass/Vol] 286 mg/dL High 82 - 115 mg/dL [facility] Interpretation and review of laboratory results Abnormal [facility] Potassium [Moles/Vol] 4 mmol/L 3.5 - 5.1 mmol/L [facility] Comment on above: Plasma potassium ashley ues may be up to 0.5 mmol/L lower than serum values. Sodium [Moles/Vol] 137 mmol/L 136 - 145 mmol/L [facility] Urea nitrogen [Mass/Vol] 24 mg/dL High 9 - 23 mg/dL [facility] CBC W Auto Differential pane l (Bld)on 09-19-2024 Basophils (Bld) [#/Vol] 0 10*3/uL 0.0 - 0.2 10*3/uL [facility] [employer] Basophils/100 WBC (Bld) 0.4 % 0.0 - 2.0 % [facility] [employer] Eosinophils (Bld) [#/Vol] 0.2 10*3/uL 0.0 - 0.5 10*3/uL [facility] Eosinophils/100 WBC (Bld) 3 % 0.0 - 6.0 % [facility] Erythrocyte distribution width (RBC) [Ratio] 13.5 % 11.5 - 15.0 % [facility] Hematocrit (Bld) [Volume fraction] 37 % 35.0 - 47.0 % [facility] Hemoglobin (Bld) [Mass/Vol] 12.2 g/dL 11.7 - 16.0 g/dL [facility] [employer] Immature granulocytes (Bld) [#/Vol] 0 10*3/uL NINF - 0.1 10*3/uL [facility] [employer] Immature granulocytes/100 WBC (Bld) 0.4 % 0.0 - 2.0 % [facility] Interpretation and review of laboratory results Normal [facility] [employer] Lymphocytes (Bld) [#/Vol] 1.4 10*3/uL 1.0 - 4.3 10*3/uL [facility] Lymphocytes/100 WBC (Bld) 18.9 % 15.0 - 45.0 % [facility] MCH (RBC) [Entitic mass] 31.1 pg 26.0 - 34.0 pg [facility] MCHC (RBC) [Mass/Vol] 33 % 30.5 - 36.0 % [facility] MCV (RBC) [Entitic vol] 94.4 fL 77.0 - 99.0 fL [facility] Monocytes (Bld) [#/Vol] 0.5 10*3/uL 0.0 - 0.9 10*3/uL [facility] Monocytes/100 WBC (Bld) 6.6 % 5.0 - 13.0 % [facility] Neutrophils (Bld) [#/Vol] 5.1 10*3/uL 1.8 - 7.5 10*3/uL [facility] Neutrophils/100 WBC (Bld) 70.7 % 38.0 - 82.0 % [facility] Nucleated RBC/100 WBC (Bld) [Ratio] 0 % [facility] Platelet mean volume (Bld) [Entitic vol] 11 fL 9.0 - 12.7 fL [facility] Platelets (Bld) [#/Vol] 253 10*3/uL 140 - 440 10*3/uL [facility] RBC (Bld) [#/Vol] 3.92 10*6/uL 3.80 - 5.20 10*6/uL [facility] WBC (Bld) [#/Vol] 7.3 10*3/uL 3.6 - 10.7 10*3/uL [facility] CBC WITH AUTO DIFFERENTIALon 09-19-2024 Basophils (Bld) [#/Vol] 0.0 10*3/uL Normal 0.0-0.2 [facility] Comment on above: Performed By: #### L [id number] ####Rn Building: MUSHTAQ MAGUIRE ([id number])[facility] (SBAB)[address] [place] [address] Basophils/100 WBC (Bld) 0.4 % Normal 0.0-2.0 [facility] Comment on above: Performed By: #### L [id number] ####Rn Building: MUSHTAQ MAGUIRE ([id number])[facility] (SBHLAB)[address] Eosinophils (Bld) [#/Vol] 0.2 10*3/uL Normal 0.0-0.5 [facility] Comment on above: Performed By: #### L [id number] ####Rn Building: MUSHTAQ MAGUIRE ([id number])[facility] ([facility])[address] [place] [address] Eosinophils/100 WBC (Bld) 3.0 % Normal 0.0-6.0 [facility] Comment on above: Performed By: #### L [id number] ####Rn Building: MUSHTAQ MAGUIRE ([id number])[facility] ([facility])[address] [place] [address] Erythrocyte distribution width (RBC) [Ratio] 13.5 % Normal 11.5-15.0 [facility] Comment on above: Performed By: #### L [id number] ####Rn Building: MUSHTAQ MAGUIRE ([id number])[facility] ([facility])[address] [place] [address] Hematocrit (Bld) [Volume fraction] 37.0 % Normal 35.0-47.0 [facility] Comment on above: Performed By: #### L [id number] ####Rn Building: MUSHTAQ MAGUIRE ([id number])[facility] ([facility])[address] [place] [address] Hemoglobin (Bld) [Mass/Vol] 12.2 g/dL Normal 11.7-16.0 [facility] Comment on above: Performed By: #### L [id number] ####Rn Building: MUSHTAQ MAGUIRE ([id number])[facility] ([facility])[address] [place] [address] IMMATURE GRANS % 0.4 % Normal 0.0-2.0 [facility] Comment on above: Performed By: #### L [id number] ####Rn Building: MUSHTAQ MAGUIRE ([id number])[facility] ([facility])[address] [place] [address] IMMATURE GRANS ABSOLUTE 0.0 10*3/uL Normal <0.1 [facility] Comment on above: Performed By: #### L [id number] ####Rn Building: MUSHTAQ OMALLEYDIANA ([id number])[facility]ITAL[facility] (SBHLAB)[address] Lymphocytes (Bld) [#/Vol] 1.4 10*3/uL Normal 1.0-4.3 [facility] Comment on above: Performed By: #### L [id number] ####Rn Building: MUSHTAQ OMALLEYDIANA ([id number])[facility] (SB[facility])[address] Lymphocytes/100 WBC (Bld) 18.9 % Normal 15.0-45.0 [facility] Comment on above: Performed By: #### L [id number] ####Rn Building: MUSHTAQ XIEJOAN ([id number])[facility] (SBHLAB)[address] [place] [address] MCH (RBC) [Entitic mass] 31.1 pg Normal 26.0-34.0 [facility] Comment on above: Performed By: #### L [id number] ####Rn Building: MUSHTAQ MAGUIRE ([id number])[facility] (SBHLAB)[address] [place] [address] MCHC 33.0 % Normal 30.5-36.0 [facility] Comment on above: Performed By: #### L [id number] ####Rn Building: MUSHTAQ MAGUIRE ([id number])[facility] ([facility])[address] [place] [address] MCV (RBC) [Entitic vol] 94.4 fL Normal 77.0-99.0 [facility] Comment on above: Performed By: #### L [id number] ####Rn Building: MUSHTAQ MAGUIRE ([id number])[facility] ([facility])[address] [place] [address] Monocytes (Bld) [#/Vol] 0.5 10*3/uL Normal 0.0-0.9 [facility] Comment on above: Performed By: #### L [id number] ####Rn Building: MUSHTAQ MAGUIRE ([id number])[facility] [place] (SBHLAB)[address] Monocytes/100 WBC (Bld) 6.6 % Normal 5.0-13.0 [facility] Comment on above: Performed By: #### L [id number] ####Rn Building: MUSHTAQ MAGUIRE ([id number])[facility] (SBHLAB)[address] NEUTROPHILS ABSOLUTE 5.1 10*3/uL Normal 1.8-7.5 [facility] Comment on above: Performed By: #### L [id number] ####Rn Building: MUSHTAQ OMALLEYDIANA ([id number])[facility] [place] (SBHLAB)[address] Neutrophils/100 WBC (Bld) 70.7 % Normal 38.0-82.0 [facility] Comment on above: Performed By: #### L [id number] ####Rn Building: MUSHTAQ MAGUIRE ([id number])[facility] [place] (SBHLAB)[address] NRBC 0.0 /100 WBCs Normal 0.0-2.0 [facility] Comment on above: Performed By: #### L [id number] ####Rn Building: MUSHTAQ MAGUIRE ([id number])[facility] [place] (SBHLAB)[address] Platelet mean volume (Bld) [Entitic vol] 11.0 fL Normal 9.0-12.7 [facility] Comment on above: Performed By: #### L [id number] ####Rn Building: MUSHTAQ MAGUIRE ([id number])[facility] [place] (SBHLAB)[address] Platelets (Bld) [#/Vol] 253 10*3/uL Normal 140-440 [facility] Comment on above: Performed By: #### L [id number] ####Rn Building: MUSHTAQ HOLMCER ([id number])[facility] (SBHLAB)[address] [place] [address] RBC (Bld) [#/Vol] 3.92 10*6/uL Normal 3.80-5.20 [facility] Comment on above: Performed By: #### L [id number] ####Rn Building: MUSHTAQ MAGUIRE ([id number])[facility] (SBHLAB)[address] [place] [address] WBC (Bld) [#/Vol] 7.3 10*3/uL Normal 3.6-10.7 [facility] Comment on above: Performed By: #### L [id number] ####Rn Building: MUSHTAQ OMALLEYDIANA ([id number])[facility] (SBHLAB)[address] [place] [address] Laboratory - Chemistry and C hemistry - challengeon 09-19-2024 Glucose [Mass/Vol] 210 mg/dL High 70 - 100 mg/dL [facility] Glucose [Mass/Vol] 99 mg/dL 70 - 100 mg/dL [facility] Glucose [Mass/Vol] 114 mg/dL High 70 - 100 mg/dL [facility] Glucose [Mass/Vol] 313 mg/dL High 70 - 100 mg/dL [facility] Glucose [Mass/Vol] 280 mg/dL High 70 - 100 mg/dL [facility] Glucose [Mass/Vol] 274 mg/dL High 70 - 100 mg/dL [facility] No Panel Informationon 09-19 Interpretation and review of laboratory results Abnormal [facility] Performed by: [facility], [address] [place] [address] CLIA ID: [id number] [facility] [employer] [facility] Interpretation and review of laboratory results Normal [facility] Performed by: [facility], [address] [place] [address] CLIA ID: [id number] [facility] [employer] [facility] Interpretation and review of laboratory results Abnormal [facility] Performed by: [facility], [address] [place] [address] CLIA ID: [id number] [facility] Interpretation and review of laboratory results Abnormal [facility] Performed by: [facility], [address] [facility] [address] CLIA ID: [id number] [facility] Interpretation and review of laboratory results Abnormal [facility] Performed by: [facility], [address] [facility] [address] CLIA ID: [id number] [facility] Interpretation and review of laboratory results Abnormal [facility] Performed by: [facility], [address] [facility] [address] CLIA ID: [id number] [facility] Progress Noteon 09-19-2024 Progress Note Nutrition- K= 4 - RD discontinued K+ restriction.. RD to follow Normal [facility] Progress Note Normal [facility] Progress Note Normal [facility] BETA HYDROXYBUTYRATEon 09-18 BETA HYDROXYBUTYRATE 2.7 mg/dL Normal <=2.8 [facility] Comment on above: Performed By: #### L [id number], LAB17 ####Rn Building: MUSHTAQ MAGUIRE ([id number])[facility] (SBHLAB)[address] [place] [address] BLOOD GAS, VENOUSon 09-18-19 25 Base excess Calc (BldV) [Moles/Vol] -6.8000 mmol/L Low -3.0-3.0 [facility] Comment on above: Performed By: #### L AB79 ####Rn Building: MUSHTAQ MAGUIRE ([id number])[facility] (SBHLAB)[address] [place] [address] [place] CO2 [Moles/Vol] 19.6 mmol/L Low 23.0-30.0 [facility] Comment on above: Performed By: #### L AB79 ####Rn Building: MUSHTAQ MAGUIRE ([id number])[facility] (SBHLAB)[address] [place] [address] HCO3 (Bld) [Moles/Vol] 18.5 mmol/L Low 21.0-30.0 S [facility] Comment on above: Performed By: #### L AB79 ####Rn Building: MUSHTAQ MAGUIRE ([id number])[facility] [place] (SBHLAB)[address] Hemoglobin (Bld) [Mass/Vol] 14.6 g/dL Normal Screen only [facility] Comment on above: Performed By: #### L AB79 ####Rn Building: MUSHTAQ MAGUIRE ([id number])[facility] [place] (SBHLAB)[address] OXYGEN (MM HG) IN VENOUS BLOOD 27.7 mm Hg Normal [facility] Comment on above: Performed By: #### L AB79 ####Rn Building: MUSHTAQ MAGUIRE ([id number])[facility] (SB[facility]AB)[address] OXYGEN SATURATION (%) IN VENOUS BLOOD 46.3 % Normal [facility] Comment on above: Performed By: #### L [id number] ####Rn Building: [facility] ([id number])[facility] ([facility])[address] PCO2, QASIM 36.7 mm Hg Normal 35.0-53.0 [facility] Comment on above: Performed By: #### L [id number] ####Rn Building: [facility]HT[facility] MAGIURE ([id number])[facility] ([facility])[address] PH VENOUS 7.320 Normal 7.320-7.42 0 [facility] [facility] Comment on above: Performed By: #### L [id number] ####Rn Building: MUSHTAQ MAGUIRE ([id number])[facility] (SB[facility])[address] SOURCE OF OXYGEN Room Air Normal [facility] Comment on above: Result Comment: CARLTON Geiger COMMENTS:Assessment of oxygenation is best done with an arterial blood gas determination. Reference ranges for pO2, bicarbonate, and base excess are for mixed venous blood. Specimens drawn from a peripheral vein will often have higher values. Performed By: #### L [id number] ####Rn Building: MUSHTAQ MAGUIRE ([id number])[facility] [place] (SBAB)[address] [place] [address] CBC W Auto Differential pane l (Bld)on 09-18-2024 Basophils (Bld) [#/Vol] 0.1 10*3/uL 0.0 - 0.2 10*3/uL [facility] [employer] Basophils/100 WBC (Bld) 0.6 % 0.0 - 2.0 % [facility] [employer] Eosinophils (Bld) [#/Vol] 0.2 10*3/uL 0.0 - 0.5 10*3/uL [facility] [employer] Eosinophils/100 WBC (Bld) 1.7 % 0.0 - 6.0 % [facility] [employer] Erythrocyte distribution width (RBC) [Ratio] 13.4 % 11.5 - 15.0 % [facility] [employer] Hematocrit (Bld) [Volume fraction] 38.1 % 35.0 - 47.0 % [facility] [employer] Hemoglobin (Bld) [Mass/Vol] 12.5 g/dL 11.7 - 16.0 g/dL [facility] [employer] Immature granulocytes (Bld) [#/Vol] 0 10*3/uL NINF - 0.1 10*3/uL [facility] [employer] Immature granulocytes/100 WBC (Bld) 0.5 % 0.0 - 2.0 % [facility] [employer] Interpretation and review of laboratory results Abnormal [facility] [employer] Lymphocytes (Bld) [#/Vol] 1.2 10*3/uL 1.0 - 4.3 10*3/uL [facility] [employer] Lymphocytes/100 WBC (Bld) 13.5 % Low 15.0 - 45.0 % [facility] [employer] MCH (RBC) [Entitic mass] 30.8 pg 26.0 - 34.0 pg [employer] MCHC (RBC) [Mass/Vol] 32.8 % 30.5 - 36.0 % [facility] [employer] MCV (RBC) [Entitic vol] 93.8 fL 77.0 - 99.0 fL [facility] [employer] Monocytes (Bld) [#/Vol] 0.6 10*3/uL 0.0 - 0.9 10*3/uL [facility] [employer] Monocytes/100 WBC (Bld) 7 % 5.0 - 13.0 % [facility] Neutrophils (Bld) [#/Vol] 6.7 10*3/uL 1.8 - 7.5 10*3/uL [facility] Neutrophils/100 WBC (Bld) 76.7 % 38.0 - 82.0 % [facility] Nucleated RBC/100 WBC (Bld) [Ratio] 0 % [facility] Platelet mean volume (Bld) [Entitic vol] 11.2 fL 9.0 - 12.7 fL [facility] Platelets (Bld) [#/Vol] 245 10*3/uL 140 - 440 10*3/uL [facility] RBC (Bld) [#/Vol] 4.06 10*6/uL 3.80 - 5.20 10*6/uL [facility] WBC (Bld) [#/Vol] 8.7 10*3/uL 3.6 - 10.7 10*3/uL [facility] CBC WITH AUTO DIFFERENTIALon 09-18-2024 Basophils (Bld) [#/Vol] 0.1 10*3/uL Normal 0.0-0.2 [facility] Comment on above: Performed By: #### L [id number] ####Rn Building: MUSHTAQ MAGUIRE ([id number])[facility] ([facility])[address] [place] [address] Basophils/100 WBC (Bld) 0.6 % Normal 0.0-2.0 [facility] Comment on above: Performed By: #### L [id number] ####Rn Building: MUSHTAQ MAGUIRE ([id number])[facility] ([facility])[address] [place] [address] Eosinophils (Bld) [#/Vol] 0.2 10*3/uL Normal 0.0-0.5 [facility] Comment on above: Performed By: #### L [id number] ####Rn Building: MUSHTAQ MAGUIRE ([id number])[facility] ([facility])[address] [place] [address] [place] Eosinophils/100 WBC (Bld) 1.7 % Normal 0.0-6.0 [facility] Comment on above: Performed By: #### L [id number] ####Rn Building: MUSHTAQ MAGUIRE ([id number])[facility] ([facility])[address] [place] [address] Erythrocyte distribution width (RBC) [Ratio] 13.4 % Normal 11.5-15.0 [facility] Comment on above: Performed By: #### L [id number] ####Rn Building: MUSHTAQ MAGUIRE ([id number])[facility] ([facility])[address] [place] [address] Hematocrit (Bld) [Volume fraction] 38.1 % Normal 35.0-47.0 [facility] Comment on above: Performed By: #### L [id number] ####Rn Building: MUSHTAQ MAGUIRE ([id number])[facility] ([facility])[address] [place] [address] Hemoglobin (Bld) [Mass/Vol] 12.5 g/dL Normal 11.7-16.0 [facility] Comment on above: Performed By: #### L [id number] ####Rn Building: MUSHTAQ MAGUIRE ([id number])[facility] ([facility])[address] [place] [address] IMMATURE GRANS % 0.5 % Normal 0.0-2.0 [facility] Comment on above: Performed By: #### L [id number] ####Rn Building: MUSHTAQ MAGUIRE ([id number])[facility] ([facility])[address] [place] [address] IMMATURE GRANS ABSOLUTE 0.0 10*3/uL Normal <0.1 [facility] Comment on above: Performed By: #### L [id number] ####Rn Building: MUSHTAQ MAGUIRE ([id number])[facility] ([facility])[address] [place] [address] Lymphocytes (Bld) [#/Vol] 1.2 10*3/uL Normal 1.0-4.3 [facility] Comment on above: Performed By: #### L [id number] ####Rn Building: MUSHTAQ MAGUIRE ([id number])[facility] [place] (SBHLAB)[address] Lymphocytes/100 WBC (Bld) 13.5 % Low 15.0-45.0 [facility] Comment on above: Performed By: #### L [id number] ####Rn Building: MUSHTAQ OMALLEYDIANA ([id number])[facility] (SBHLAB)[address] MCH (RBC) [Entitic mass] 30.8 pg Normal 26.0-34.0 [facility] Comment on above: Performed By: #### L [id number] ####Rn Building: MUSHTAQ ANDREZ ([id number])[facility]CLOV[facility]PITALChat[facility] (SBHLAB)[address] MCHC 32.8 % Normal 30.5-36.0 [facility] Comment on above: Performed By: #### L [id number] ####Rn Building: MUSHTAQ OMALLEYDIANA ([id number])[facility] (SBHLAB)[address] MCV (RBC) [Entitic vol] 93.8 fL Normal 77.0-99.0 [facility] Comment on above: Performed By: #### L [id number] ####Rn Building: MUSHTAQ MAGUIRE ([id number])[facility] (SBHL[facility])[address] Monocytes (Bld) [#/Vol] 0.6 10*3/uL Normal 0.0-0.9 [facility] Comment on above: Performed By: #### L [id number] ####Rn Building: MUSHTAQ MAGUIRE ([id number])[facility] (SBHL[facility])[address] Monocytes/100 WBC (Bld) 7.0 % Normal 5.0-13.0 [facility] Comment on above: Performed By: #### L [id number] ####Rn Building: MUSHTAQ MAGUIRE ([id number])[facility] [place] (SBHLAB)[address] NEUTROPHILS ABSOLUTE 6.7 10*3/uL Normal 1.8-7.5 [facility] Comment on above: Performed By: #### L [id number] ####Rn Building: MUSHTAQ MAGUIRE ([id number])[facility] [place] (SBHLAB)[address] Neutrophils/100 WBC (Bld) 76.7 % Normal 38.0-82.0 [facility] Comment on above: Performed By: #### L [id number] ####Rn Building: MUSHTAQ OMALLEYDIANA ([id number])[facility] [place] (SBHLAB)[address] NRBC 0.0 /100 WBCs Normal 0.0-2.0 [facility] Comment on above: Performed By: #### L [id number] ####Rn Building: MUSHTAQ MAGUIRE ([id number])[facility] [place] (SBHLAB)[address] Platelet mean volume (Bld) [Entitic vol] 11.2 fL Normal 9.0-12.7 [facility] Comment on above: Performed By: #### L [id number] ####Rn Building: MUSHTAQ MAGUIRE ([id number])[facility] [place] (SBHLAB)[address] [place] [address] [place] Platelets (Bld) [#/Vol] 245 10*3/uL Normal 140-440 [facility] Comment on above: Performed By: #### L [id number] ####Rn Building: MUSHTAQ MAGUIRE ([id number])[facility] [place] (SBHLAB)[address] [place] [address] [place] RBC (Bld) [#/Vol] 4.06 10*6/uL Normal 3.80-5.20 [facility] Comment on above: Performed By: #### L [id number] ####Rn Building: MUSHTAQ MAGUIRE ([id number])[facility] [place] (SBHLAB)[address] WBC (Bld) [#/Vol] 8.7 10*3/uL Normal 3.6-10.7 [facility] Comment on above: Performed By: #### L [id number] ####Rn Building: MUSHTAQ MAGUIRE ([id number])[facility] (SBHLAB)[address] COMPLETE URINALYSISon 2024 BACTERIA (#/HPF) IN URINE Moderate Abnormal Negative [facility] Comment on above: Performed By: #### L [id number] ####Rn Building: MUSHTAQ MAGUIRE ([id number])[facility] (SBHLAB)[address] BILIRUBIN, TOTAL PRESENCE IN URINE Negative Normal Negative [facility] Comment on above: Performed By: #### L [id number] ####Rn Building: MUSHTAQ MAGUIRE ([id number])[facility]ITAL[facility] (SBHLAB)[address] Clarity (U) Clear Normal Clear [facility] Comment on above: Performed By: #### L [id number] ####Rn Building: MUSHTAQ MAGUIRE ([id number])[facility] ([facility])[address] Color (U) Colorless Normal Lt. Yellow [facility] Comment on above: Performed By: #### L [id number] ####Rn Building: MUSHTAQ MAGUIRE ([id number])[facility] (SBHLAB)[address] GLUCOSE (MG/DL) IN URINE >1,000 Abnormal Normal (<70) [facility] Comment on above: Performed By: #### L [id number] ####Rn Building: MUSHTAQ MAGUIRE ([id number])[facility] (SBHL[facility])[address] HEMOGLOBIN PRESENCE IN URINE Negative Normal Negative [facility] Comment on above: Performed By: #### L [id number] ####Rn Building: MUSHTAQ MAGUIRE ([id number])[facility] (SBHLAB)[address] Ketones Ql (U) Negative Normal Negative [facility] Comment on above: Performed By: #### L [id number] ####Rn Building: MUSHTAQ MAGUIRE ([id number])[facility] (SBHLAB)[address] LEUKOCYTE ESTERASE PRESENCE IN URINE BY TEST STRIP Negative Normal Negative [facility] Comment on above: Performed By: #### L [id number] ####Rn Building: MUSHTAQ MAGUIRE ([id number])[facility] (HLAB)[address] NITRITE PRESENCE IN URINE Positive Abnormal Negative [facility] Comment on above: Performed By: #### L [id number] ####Rn Building: MUSHTAQ MAGUIRE ([id number])[facility] (SBHLAB)[address] pH (U) 5.0 [pH] Normal 5.0-8.0 [facility] Comment on above: Performed By: #### L [id number] ####Rn Building: MUSHTAQ MAGUIRE ([id number])[facility] (SBHLAB)[address] Protein (U) [Mass/Vol] Negative Normal Negative [facility] Comment on above: Performed By: #### L [id number] ####Rn Building: MUSHTAQ MAGUIRE ([id number])[facility] (SBHLAB)[address] [place] [address] [place] RBC (#/HPF) IN URINE SEDIMENT 0-2 Normal 0-2 [facility] Comment on above: Performed By: #### L [id number] ####Rn Building: MUSHTAQ MAGUIRE ([id number])[facility] [place] (SBHLAB)[address] Specific gravity (U) [Rel density] 1.024 Normal 1.005-1.03 0 [facility] Comment on above: Performed By: #### L [id number] ####Rn Building: MUSHTAQ MAGUIRE ([id number])[facility] (SBHLAB)[address] SQUAMOUS EPITHELIAL CELLS (#/HPF) IN URINE SEDIMENT 0-2 Normal 3-5 [facility] Comment on above: Performed By: #### L [id number] ####Rn Building: MUSHTAQ MAGUIRE ([id number])[facility] [place] (SBHLAB)[address] UROBILINOGEN (MG/DL) IN URINE Normal Normal Normal (0-1) [facility] Comment on above: Performed By: #### L [id number] ####Rn Building: MUSHTAQ MAGUIRE ([id number])[facility] (SBHLAB)[address] WBC (LEUKOCYTE) (#/HPF) IN URINE SEDIMENT 3-5 Normal 0-5 [facility] Comment on above: Performed By: #### L [id number] ####Rn Building: MUSHTAQ MAGUIRE ([id number])[facility] (SBHLAB)[address] COMPREHENSIVE METABOLIC PANE David 09-18-2024 Albumin [Mass/Vol] 3.6 g/dL Normal 3.4-4.8 [facility] Comment on above: Performed By: #### L [id number], LAB17 ####Rn Building: MUSHTAQ MAGUIRE ([id number])[facility] (SBHLAB)[address] ALP [Catalytic activity/Vol] 102 U/L Normal 40-150 [facility] Comment on above: Performed By: #### L [id number], LAB17 ####Rn Building: MUSHTAQ MAGUIRE ([id number])[facility] [place] (SBHLAB)[address] ALT [Catalytic activity/Vol] 16 U/L Normal <30 [facility] Comment on above: Performed By: #### L [id number], LAB17 ####Rn Building: MUSHTAQ MAGUIRE ([id number])[facility] [place] (SBHLAB)[address] Anion gap [Moles/Vol] 11 mmol/L Normal 3-13 [facility] Comment on above: Performed By: #### L [id number], LAB17 ####Rn Building: MUSHTAQ MAGUIRE ([id number])[facility] [place] (SBHLAB)[address] AST [Catalytic activity/Vol] 20 U/L Normal <34 [facility] Comment on above: Performed By: #### L [id number], LAB17 ####Rn Building: MUSHTAQ MAGUIRE ([id number])[facility] [place] (SBHLAB)[address] Bilirubin [Mass/Vol] 0.4 mg/dL Normal <1.2 [facility] Comment on above: Performed By: #### L [id number], LAB17 ####Rn Building: MUSHTAQ MAGUIRE ([id number])[facility] [place] (SBHLAB)[address] Calcium [Mass/Vol] 9.2 mg/dL Normal 8.8-10.0 [facility] Comment on above: Performed By: #### L [id number], LAB17 ####Rn Building: MUSHTAQ MAGUIRE ([id number])[facility] [place] (SBHLAB)[address] [place] [address] [place] Chloride [Moles/Vol] 103 mmol/L Normal 98-107 [facility] Comment on above: Performed By: #### L [id number], LAB17 ####Rn Building: MUSHTAQ MAGUIRE ([id number])[facility] [place] (SBHLAB)[address] [place] [address] [place] CO2 [Moles/Vol] 18 mmol/L Low 23-31 [facility] Comment on above: Performed By: #### L [id number], LAB17 ####Rn Building: MUSHTAQ MAGUIRE ([id number])[facility] [place] (SBHLAB)[address] Creatinine [Mass/Vol] 1.41 mg/dL High 0.57-1.11 [facility] Comment on above: Performed By: #### L [id number], LAB17 ####Rn Building: MUSHTAQ MAGUIRE ([id number])[facility]ITALJul[facility]ONCLOV[facility] (SBHLAB)[address] GLOMERULAR FILTRATION RATE ML/MIN/1.73 SQ M.PREDICTED 36.6 mL/min/1.73m*2 Low >60.0 [facility] Comment on above: Result Comment: Calc ulation based on the Chronic Kidney Disease Epidemiology Collaboration (CKD-EPI) equation refit without adjustment for race Performed By: #### L [id number], LAB17 ####Rn Building: MUSHTAQ MAGUIRE ([id number])[facility] [place] (SBHLAB)[address] Glucose [Mass/Vol] 548 mg/dL Critically high 82-115 [facility] Comment on above: Performed By: #### L [id number], LAB17 ####Rn Building: MUSHTAQ MAGUIRE ([id number])[facility]ITAL[facility] (SBHLAB)[address] [place] [address] [place] Potassium [Moles/Vol] 5.6 mmol/L High 3.5-5.1 [facility] Comment on above: Result Comment: [facility] potassium values may be up to 0.5 mmol/L lower than serum values. Performed By: #### L [id number], LAB17 ####Rn Building: MUSHTAQ MAGUIRE ([id number])[facility] (SBHLAB)[address] [place] [address] [place] Protein [Mass/Vol] 7.3 g/dL Normal 6.4-8.3 [facility] Comment on above: Performed By: #### L [id number], LAB17 ####Rn Building: MUSHTAQ OMALLEYDIANA ([id number])[facility] (SBHLAB)[address] Sodium [Moles/Vol] 132 mmol/L Low 136-145 [facility] Comment on above: Performed By: #### L [id number], LAB17 ####Rn Building: MUSHTAQ XIEJOAN ([id number])[facility] (SBHLAB)[address] Urea nitrogen [Mass/Vol] 33 mg/dL High 9-23 [facility] Comment on above: Performed By: #### L [id number], LAB17 ####Rn Building: MUSHTAQ XIEJOAN ([id number])[facility] (SBHLAB)[address] Comprehensive metabolic 1998 panelOrdered By: Negra Nelson on 09-18-2024 Albumin [Mass/Vol] 3.6 g/dL 3.4 - 4.8 g/dL [facility] ALP [Catalytic activity/Vol] 102 U/L 40 - 150 U/L [facility] ALT [Catalytic activity/Vol] 16 U/L [facility] - 30 U/L [facility] Anion gap [Moles/Vol] 11 mmol/L 3 - 13 mmol/L [facility] AST [Catalytic activity/Vol] 20 U/L NINF - 34 U/L [facility] Bilirubin [Mass/Vol] 0.4 mg/dL NINF - 1.2 mg/dL [facility] Calcium [Mass/Vol] 9.2 mg/dL 8.8 - 10. 0 mg/dL [facility] Chloride [Moles/Vol] 103 mmol/L 98 - 10 7 mmol/L [facility] CO2 [Moles/Vol] 18 mmol/L Low 23 - 31 mmol/L [facility] Creatinine [Mass/Vol] 1.41 mg/dL High 0.57 - 1.11 mg/dL [facility] GFR/1.73 sq M.predicted (S/P/Bld) [Vol rate/Area] 36.6 mL/min Low - PINF [facility] Comment on above: Calculation based on the Chronic Kidney Disease Epidemiology Collaboration (CKD-EPI) equation refit without adjustment for race Glucose [Mass/Vol] 548 mg/dL Critically high 82 - 1 15 mg/dL [facility] Interpretation and review of laboratory results Abnormal [facility] Potassium [Moles/Vol] 5.6 mmol/L High 3.5 - 5.1 mmol/L [facility] Comment on above: Plasma potassium ashley ues may be up to 0.5 mmol/L lower than serum values. Protein [Mass/Vol] 7.3 g/dL 6.4 - 8.3 g/dL [facility] Sodium [Moles/Vol] 132 mmol/L Low 136 - 145 mmol/L [facility] Urea nitrogen [Mass/Vol] 33 mg/dL High 9 - 23 mg/dL [facility] ED Provider Noteon ED Provider Note Normal [facility] Laboratory - Chemistry and C hemistry - challengeon 09-18-2024 Potassium [Moles/Vol] 4.5 mmol/L 3.5 - 5.1 mmol/L [facility] Comment on above: Plasma potassium ashley ues may be up to 0.5 mmol/L lower than serum values. Glucose [Mass/Vol] 394 mg/dL High 70 - 100 mg/dL [facility] Glucose [Mass/Vol] 354 mg/dL High 70 - 100 mg/dL [facility] Glucose [Mass/Vol] 390 mg/dL High 70 - 100 mg/dL [facility] Glucose [Mass/Vol] mg/dL High 70 - 100 mg/dL [facility] Comment on above: Caregiver Notified; Base excess Calc (BldV) [Moles/Vol] -6.8000 mmol/L Low -3.0 - 3.0 mmol/L [facility] CO2 (BldV) [Partial pressure] 36.7 mm[Hg] [facility] CO2 [Moles/Vol] 19.6 mmol/L Low 23.0 - 30.0 mmol/L [facility] HCO3 (Bld) [Moles/Vol] 18.5 mmol/L Low 21.0 - 30.0 mmol/L [facility] Oxygen (BldV) [Partial pressure] 27.7 mm[Hg] mm Hg [facility] pH (BldV) 7.32 [pH] 7.320 - 7.420 [facility] Beta hydroxybutyrate [Mass/Vol] 2.7 mg/dL NINF - 2.8 mg/dL [facility] Glucose [Mass/Vol] mg/dL High 70 - 100 mg/dL [facility] Comment on above: Caregiver Notified; Confirmation Drawn; Repeated Test; Laboratory - Hematology and Cell countson 09-18-2024 Hemoglobin (Bld) [Mass/Vol] 14.6 g/dL Screen only [facility] [employer] No Panel Informationon 09-18 Interpretation and review of laboratory results Abnormal [facility] Performed by: [facility], [address] [place] [id number] CLIA ID: [id number] [facility] Interpretation and review of laboratory results Abnormal [facility] Performed by: [facility], [address] [place] [id number] CLIA ID: [id number] [facility] Interpretation and review of laboratory results Abnormal [facility] Performed by: [facility], [address] [place] [id number] CLIA ID: [id number] [facility] [employer] [facility] Interpretation and review of laboratory results Abnormal [facility] Performed by: [facility], [address] [place] [id number] CLIA ID: [id number] [facility] Interpretation and review of laboratory results Abnormal [facility] Source Of Oxygen Room Air [facility] Assessment of oxygen ation is best done with an arterial blood gas determination. Reference ranges for pO2, bicarbonate, and base excess are for mixed venous blood. Specimens drawn from a peripheral vein will often have higher values. [facility] Interpretation and review of laboratory results Normal [facility] Interpretation and review of laboratory results Abnormal [facility] Performed by: [facility], [address] [place] [address] CLIA ID: [id number] [facility] POTASSIUMon 09-18-2024 Potassium [Moles/Vol] 4.5 mmol/L Normal 3.5-5.1 [facility] Comment on above: Result Comment: [facility] potassium values may be up to 0.5 mmol/L lower than serum values. Performed By: #### L [id number] ####Rn Building: MUSHTAQ MAGUIRE ([id number])[facility] (SBHLAB)[address] [place] [address] Potassium [Moles/Vol]on Interpretation and review of laboratory results Normal [facility] Urinalysis complete panel (U )Ordered By: Mikal Cortez on 09-18-2024 Bacteria LM.HPF (Urine sed) [#/Area] Moderate Abnormal Negative /HPF [facility] Bilirubin Ql (U) Negative Negative mg/dL [facility] Clarity (U) Clear Clear [facility] Color (U) Colorless Lt. Yellow [facility] Epithelial cells.squamous LM.HPF (Urine sed) [#/Area] 0-2 [facility] Glucose Ql (U) >1,000 Abnormal Normal (<70) mg/dL [facility] Hemoglobin Ql (U) Negative Negative mg/dL [facility] Interpretation and review of laboratory results Abnormal [facility] Ketones (U) [Mass/Vol] Negative Negat eddie mg/dL [facility] Leukocyte esterase Test strip Ql (U) Negative Negative Baljit/uL [facility] Nitrite Ql (U) Positive Abnormal Negative [facility] pH (U) 5.0 [pH] 5.0 - 8.0 pH [facility] Protein (U) [Mass/Vol] Negative Negat eddie mg/dL [facility] RBC LM.HPF (Urine sed) [#/Area] 0-2 [facility] Specific gravity (U) [Rel density] 1.024 1.005 - 1.030 [facility] Urobilinogen (U) [Mass/Vol] Normal Normal (0-1) mg/dL [facility] WBC LM.HPF (Urine sed) [#/Area] 3-5 [facility] Vital signson 09-18-2024 Oxygen saturation in Venous blood 46.3 % [facility] BASIC METABOLIC PANELon Anion gap [Moles/Vol] 7 mmol/L Normal 3-13 [facility] Comment on above: Performed By: #### L AB15 ####Rn Building: BROOKE RINCON ([id number])[facility] RODOLFO GARCIA (SWRLAB)[address] [place] [address] [place] Calcium [Mass/Vol] 8.9 mg/dL Normal 8.8-10.0 [facility] Comment on above: Performed By: #### L AB15 ####Rn Building: BROOKE RINCON ([id number])[facility] REYNOLDS RITTMAN (SWRLAB)[address] [place] [address] [place] Chloride [Moles/Vol] 104 mmol/L Normal 98-107 [facility] Comment on above: Performed By: #### L AB15 ####Rn Building: BROOKE RINCON ([id number])[facility] REYNOLDS RITTMAN (SWRLAB)[address] [place] [address] [place] CO2 [Moles/Vol] 22 mmol/L Low 23-31 [facility] Comment on above: Performed By: #### L AB15 ####Rn Building: BROOKE RINCON ([id number])[facility] REYNOLDS RITTMAN (SWRLAB)[address] [place] [address] [place] Creatinine [Mass/Vol] 1.22 mg/dL High 0.57-1.11 [facility] Comment on above: Performed By: #### L AB15 ####Rn Building: BROOKE RINCON ([id number])[facility] REYNOLDS RITTMAN (SWRLAB)[address] [place] [address] [place] GLOMERULAR FILTRATION RATE ML/MIN/1.73 SQ M.PREDICTED 43.6 mL/min/1.73m*2 Low >60.0 [facility] Comment on above: Result Comment: Calc ulation based on the Chronic Kidney Disease Epidemiology Collaboration (CKD-EPI) equation refit without adjustment for race Performed By: #### L AB15 ####Rn Building: BROOKE RINCON ([id number])[facility] REYNOLDS RITTMAN (SWRLAB)[address] [place] [address] [place] Glucose [Mass/Vol] 484 mg/dL Critically high 82-115 S [facility] Comment on above: Performed By: #### L AB15 ####Rn Building: BROOKE RINCON ([id number])[facility] REYNOLDS RITTMAN (SWRLAB)[address] [place] [address] [place] Potassium [Moles/Vol] 4.8 mmol/L Normal 3.5-5.1 [facility] Comment on above: Result Comment: [facility] potassium values may be up to 0.5 mmol/L lower than serum values. Performed By: #### L AB15 ####Rn Building: BROOKE RINCON ([id number])[facility] REYNOLDS RITTMAN (SWRLAB)[address] Sodium [Moles/Vol] 133 mmol/L Low 136-145 [facility] Comment on above: Performed By: #### L AB15 ####Rn Building: BROOKE RINCON ([id number])[facility] REYNOLDS RITTMAN (SWRLAB)[address] Urea nitrogen [Mass/Vol] 22 mg/dL Normal 9-23 [facility] Comment on above: Performed By: #### L AB15 ####Rn Building: BROOKE RINCON ([id number])[facility] REYNOLDS RITTMAN (SWRLAB)[address] Anion gap [Moles/Vol] 10 mmol/L Normal 3-13 [facility] Comment on above: Performed By: #### L AB15 ####Rn Building: BROOKE RINCON ([id number])[facility] REYNOLDS RITTMAN (SWRLAB)[address] [place] [address] [place] Calcium [Mass/Vol] 9.6 mg/dL Normal 8.8-10.0 [facility] Comment on above: Performed By: #### L AB15 ####Rn Building: BROOKE RINCON ([id number])[facility] REYNOLDS RITTMAN (SWRLAB)[address] [place] [address] [place] Chloride [Moles/Vol] 98 mmol/L Normal 98-107 [facility] Comment on above: Performed By: #### L AB15 ####Rn Building: BROOKE RINCON ([id number])[facility] REYNOLDS RITTMAN (SWRLAB)[address] [place] [address] [place] CO2 [Moles/Vol] 20 mmol/L Low 23-31 [facility] Comment on above: Performed By: #### L AB15 ####Rn Building: BROOKE RINCON ([id number])[facility] REYNOLDS RITTMAN (SWRLAB)[address] Creatinine [Mass/Vol] 1.49 mg/dL High 0.57-1.11 [facility] Comment on above: Performed By: #### L AB15 ####Rn Building: BROOKE RINCON ([id number])[facility] REYNOLDS RITTMAN (SWRLAB)[address] [place] [address] [place] GLOMERULAR FILTRATION RATE ML/MIN/1.73 SQ M.PREDICTED 34.3 mL/min/1.73m*2 Low >60.0 [facility] Comment on above: Result Comment: Calc ulation based on the Chronic Kidney Disease Epidemiology Collaboration (CKD-EPI) equation refit without adjustment for race Performed By: #### L AB15 ####Rn Building: BROOKE RINCON ([id number])[facility] REYNOLDS RITTMAN (SWRLAB)[address] [place] [address] [place] Glucose [Mass/Vol] 613 mg/dL Critically high 82-115 S [facility] Comment on above: Performed By: #### L AB15 ####Rn Building: BROOKE RINCON ([id number])[facility] REYNOLDS RITTMAN (SWRLAB)[address] [place] [address] [place] Potassium [Moles/Vol] 5.8 mmol/L High 3.5-5.1 [facility] Comment on above: Result Comment: TCSi gnificant interference from hemolysis. Result integrity compromised. Interpret with caution. Performed By: #### L AB15 ####Rn Building: BROOKE RINCON ([id number])[facility] SOLORIOTMAN (SWRLAB)[address] Sodium [Moles/Vol] 128 mmol/L Low 136-145 [facility] Comment on above: Performed By: #### L AB15 ####Rn Building: BROOKE RINCON ([id number])[facility] SOLORIOTMAN (SWRLAB)[address] Urea nitrogen [Mass/Vol] 25 mg/dL High 9-23 [facility] Comment on above: Performed By: #### L AB15 ####Rn Building: BROOKE RINCON ([id number])[facility] OWENSAN (SWRLAB)[address] BETA HYDROXYBUTYRATEon 09-17 BETA HYDROXYBUTYRATE 3.9 mg/dL High <=2.8 [facility] Comment on above: Performed By: #### L [id number] ####Rn Building: BROOKE RINCON ([id number])[facility] OWENSAN (SWRLAB)[address] [place] [address] Basic metabolic 1998 panelon 09-17-2024 Anion gap [Moles/Vol] 7 mmol/L 3 - 13 mmol/L [facility] Calcium [Mass/Vol] 8.9 mg/dL 8.8 - 10. 0 mg/dL [facility] Chloride [Moles/Vol] 104 mmol/L 98 - 10 7 mmol/L [facility] CO2 [Moles/Vol] 22 mmol/L Low 23 - 31 mmol/L [facility] Creatinine [Mass/Vol] 1.22 mg/dL High 0.57 - 1.11 mg/dL [facility] GFR/1.73 sq M.predicted (S/P/Bld) [Vol rate/Area] 43.6 mL/min Low - PINF [facility] Comment on above: Calculation based on the Chronic Kidney Disease Epidemiology Collaboration (CKD-EPI) equation refit without adjustment for race Glucose [Mass/Vol] 484 mg/dL Critically high 82 - 1 15 mg/dL [facility] Interpretation and review of laboratory results Abnormal [facility] Potassium [Moles/Vol] 4.8 mmol/L 3.5 - 5.1 mmol/L [facility] Comment on above: Plasma potassium ashley ues may be up to 0.5 mmol/L lower than serum values. Sodium [Moles/Vol] 133 mmol/L Low 136 - 145 mmol/L [facility] Urea nitrogen [Mass/Vol] 22 mg/dL 9 - 23 mg/dL [facility] Basic metabolic 1998 panelOr dered By: Mahnaz Jaimes on 09-17-2024 Anion gap [Moles/Vol] 10 mmol/L 3 - 13 mmol/L [facility] Calcium [Mass/Vol] 9.6 mg/dL 8.8 - 10. 0 mg/dL [facility] Chloride [Moles/Vol] 98 mmol/L 98 - 10 7 mmol/L [facility] CO2 [Moles/Vol] 20 mmol/L Low 23 - 31 mmol/L [facility] Creatinine [Mass/Vol] 1.49 mg/dL High 0.57 - 1.11 mg/dL [facility] GFR/1.73 sq M.predicted (S/P/Bld) [Vol rate/Area] 34.3 mL/min Low - PINF [facility] Comment on above: Calculation based on the Chronic Kidney Disease Epidemiology Collaboration (CKD-EPI) equation refit without adjustment for race Glucose [Mass/Vol] 613 mg/dL Critically high 82 - 1 15 mg/dL [facility] Interpretation and review of laboratory results Abnormal [facility] Potassium [Moles/Vol] 5.8 mmol/L High 3.5 - 5.1 mmol/L [facility] Comment on above: TC Significant interference from hemolysis. Result integrity compromised. Interpret with caution. Sodium [Moles/Vol] 128 mmol/L Low 136 - 145 mmol/L [facility] Urea nitrogen [Mass/Vol] 25 mg/dL High 9 - 23 mg/dL [facility] ED Nursing Noteon 09-17-2024 ED Nursing Note Lab called with yulissa reyes high blood sugar of 613. Physician aware. Normal [facility] ED Nursing Note Brought by son for h igh blood sugar readings today. Pt with no complaints. States has had breakfast, cookies, pretzels and ice cream today. Alert and oriented to self and place only-not new per family. Blood sugar 581 Normal [facility] ED Provider Noteon ED Provider Note Normal [facility] GLUCOSE, RANDOMon 09-17-2024 Glucose [Mass/Vol] 539 mg/dL Critically high 82-115 S [facility] Comment on above: Result Comment: CARL[place] R COMMENTS:A normal fasting glucose concentration is less than 100 mg/dL. An impaired fasting glucose concentration is 100-125 mg/dL. A provisional diagnosis of diabetes mellitus can be made when a fasting glucose concentration is greater than 125 mg/dL. Performed By: #### L AB82 ####Rn Building: BROOKE RINCON ([id number])[facility] RODOLFO RITBRAYAN (SWRLAB)[address] [place] [address] Glucose (Bld) [Mass/Vol]Orde red By: Gómez Quinn on 09-17-2024 Glucose [Mass/Vol] 539 mg/dL Critically high 82 - 1 15 mg/dL [facility] Interpretation and review of laboratory results Abnormal [facility] A normal fasting glu cose concentration is less than 100 mg/dL. An impaired fasting glucose concentration is 100-125 mg/dL. A provisional diagnosis of diabetes mellitus can be made when a fasting glucose concentration is greater than 125 mg/dL. [facility] [employer] [facility] [employer] Laboratory - Chemistry and C hemistry - challengeon 09-17-2024 Glucose [Mass/Vol] mg/dL High 70 - 100 mg/dL [facility] Comment on above: Result Not Confirmed ; Beta hydroxybutyrate [Mass/Vol] 3.9 mg/dL High NINF - 2.8 mg/dL [facility] Glucose [Mass/Vol] mg/dL High 70 - 100 mg/dL [facility] Comment on above: Caregiver Notified; No Panel Informationon 09-17 Interpretation and review of laboratory results Abnormal [facility] [employer] Performed by: [facility], [address] [place] [address] CLIA ID: [id number] [facility] [employer] [facility] [employer] Interpretation and review of laboratory results Abnormal [facility] Interpretation and review of laboratory results Abnormal [facility] [employer] Performed by: [facility], [address] [place] [address] CLIA ID: [id number] [facility] CBC WITH DIFFERENTIALon 05-12 ABSOLUTE BASOPHIL 0.0 K/uL Normal 0.0-0.3 Provide r Locations ABSOLUTE SEGMENTED NEUTROPHIL 4.5 K/uL Normal 1.8-7.5 Provider Locations Basophils/100 WBC (Bld) 0.3 % Normal 0.0-2.0 Provider Locations DIFFERENTIAL AUTOMATIC METHOD Normal Provid er Locations Eosinophils (Bld) [#/Vol] 0.1 10*3/uL Normal 0.0-0.5 Provider Locations Eosinophils/100 WBC (Bld) 2.0 % Normal 0.0-5.0 Provider Locations Erythrocyte distribution width (RBC) [Ratio] 12.7 % Normal <15.1 Provider Locations Hematocrit (Bld) [Volume fraction] 38.9 % Normal 34.0-49.0 Provider Locations Hemoglobin (Bld) [Mass/Vol] 12.5 g/dL Normal 11.2-15.7 Provider Locations IMMATURE GRAN 0.5 % Normal <1 Provider Locations Immature granulocytes (Bld) [#/Vol] 0.0 10*3/uL Normal 0.0-0.1 Provider Locations Lymphocytes (Bld) [#/Vol] 1.1 10*3/uL Normal 0.9-4.1 Provider Locations Lymphocytes/100 WBC (Bld) 16.5 % Normal 14.0-51.0 Provider Locations MCH (RBC) [Entitic mass] 31.4 pg Normal 26.0-34.0 Provider Locations MCHC (RBC) [Mass/Vol] 32.1 g/dL Normal 30.7-35.5 Pro vider Locations MCV (RBC) [Entitic vol] 97.7 fL Normal 80.0-100.0 Provider Locations Monocytes (Bld) [#/Vol] 0.7 10*3/uL Normal 0.2-1.0 Provider Locations Monocytes/100 WBC (Bld) 10.7 % Normal 4.0-12.0 Provider Locations NUCLEATED RBCS 0.0 /100 WBC Normal 0 Provider Locations Platelet mean volume (Bld) [Entitic vol] 11.5 fL Normal 7.2-11.7 Provider Locations Platelets (Bld) [#/Vol] 234 10*3/uL Normal 140-400 Provider Locations RBC (Bld) [#/Vol] 3.98 10*6/uL Normal 3.95-5.26 Provi jacklyn Locations Segmented neutrophils/100 WBC (Bld) 70.0 % Normal 42.0-80.0 Provider Locations WBC (Bld) [#/Vol] 6.4 10*3/uL Normal 3.5-10.9 Provid er Locations CBC, PLATELET CT AND DIFFon 05-22-2024 Basophils (Bld) [#/Vol] 0.0 10*3/uL Normal 0.0-0.3 [facility] Comment on above: Performed By: #### C BCBobo #### MICHEL Colon ([id number]) [facility] ([id number]) [address] [place] [address] Basophils/100 WBC (Bld) 0.3 % Normal 0.0-2.0 [facility] Comment on above: Performed By: #### Isaiah BCBobo #### MICHEL Colon ([id number]) [facility] ([id number]) [address] [place] [address] Differential cell count method Nom (Bld) AUTOMATIC METHOD Normal [facility] Comment on above: Performed By: #### C BCBobo #### MICHEL Colon ([id number]) [facility] [employer] ([id number]) [address] [place] [address] Eosinophils (Bld) [#/Vol] 0.1 10*3/uL Normal 0.0-0.5 [facility] Comment on above: Performed By: #### C BCBobo #### MICHEL Colon ([id number]) [facility] [employer] [facility] [employer] ([id number]) [address] [place] [address] Eosinophils/100 WBC (Bld) 2.0 % Normal 0.0-5.0 [facility] Comment on above: Performed By: #### Isaiah BCD #### MICHEL Colon ([id number]) [facility] ([id number]) [address] [place] [address] Erythrocyte distribution width (RBC) [Ratio] 12.7 % Normal <15.1 [facility] Comment on above: Performed By: #### C BCD #### MICHEL Colon ([id number]) [facility] ([id number]) [address] [place] [address] Hematocrit (Bld) [Volume fraction] 38.9 % Normal 34.0-49.0 [facility] Comment on above: Performed By: #### C BCD #### MICHEL Colon ([id number]) [facility] ([id number]) [address] [place] [address] Hemoglobin (Bld) [Mass/Vol] 12.5 g/dL Normal 11.2-15.7 [facility] Comment on above: Performed By: #### C BCD #### MICHEL Colon ([id number]) [facility] ([id number]) [address] [place] [address] Immature granulocytes (Bld) [#/Vol] 0.0 10*3/uL Normal 0.0-0.1 [facility] Comment on above: Performed By: #### C BCD #### MICHEL Colon ([id number]) [facility] ([id number]) [address] [place] [address] Immature granulocytes/100 WBC (Bld) 0.5 % Normal <1 [facility] Comment on above: Performed By: #### C BCD #### MICHEL Colon ([id number]) [facility] ([id number]) [address] [place] [address] Lymphocytes (Bld) [#/Vol] 1.1 10*3/uL Normal 0.9-4.1 [facility] Comment on above: Performed By: #### C BCD #### MICHEL Colon ([id number]) [facility] ([id number]) [address] [place] [address] Lymphocytes/100 WBC (Bld) 16.5 % Normal 14.0-51.0 [facility] Comment on above: Performed By: #### C BCD #### MICHEL Colon ([id number]) [facility] ([id number]) [address] [place] [address] MCH (RBC) [Entitic mass] 31.4 pg Normal 26.0-34.0 [facility] Comment on above: Performed By: #### C BCD #### MICHEL Colon ([id number]) [facility] ([id number]) [address] [place] [address] MCHC (RBC) [Mass/Vol] 32.1 g/dL Normal 30.7-35.5 [facility] Comment on above: Performed By: #### C BCD #### MICHEL Colon ([id number]) [facility] ([id number]) [address] [place] [address] MCV (RBC) [Entitic vol] 97.7 fL Normal 80.0-100.0 [facility] Comment on above: Performed By: #### C BCD #### MICHEL Colon ([id number]) [facility] [employer] [facility] [employer] ([id number]) [address] [place] [address] Monocytes (Bld) [#/Vol] 0.7 10*3/uL Normal 0.2-1.0 [facility] Comment on above: Performed By: #### C BCD #### MICHEL Colon ([id number]) [facility] ([id number]) [address] [place] [address] Monocytes/100 WBC (Bld) 10.7 % Normal 4.0-12.0 [facility] Comment on above: Performed By: #### C BCD #### MICHEL Colon ([id number]) [facility] ([id number]) [address] [place] [address] Neutrophils (Bld) [#/Vol] 4.5 10*3/uL Normal 1.8-7.5 [facility] Comment on above: Performed By: #### C BCD #### MICHEL Colon ([id number]) [facility] ([id number]) [address] [place] [address] Neutrophils/100 WBC (Bld) 70.0 % Normal 42.0-80.0 [facility] Comment on above: Performed By: #### C BCD #### MICHEL Colon ([id number]) [employer] ([id number]) [address] [place] [address] Platelet mean volume (Bld) [Entitic vol] 11.5 fL Normal 7.2-11.7 [facility] Comment on above: Performed By: #### C BCD #### MICHEL Colon ([id number]) [employer] ([id number]) [address] [place] [address] Platelets (Bld) [#/Vol] 234 10*3/uL Normal 140-400 [facility] Comment on above: Performed By: #### C BCD #### MICHEL Colon ([id number]) [employer] ([id number]) [address] [place] [address] RBC (Bld) [#/Vol] 3.98 10*6/uL Normal 3.95-5.26 [facility] Comment on above: Performed By: #### C BCD #### MICHEL Colon ([id number]) [employer] ([id number]) [address] [place] [address] Reticulocytes/100 RBC (Bld) 0.0 /100 WBC Normal 0 [facility] Comment on above: Performed By: #### C BCD #### MICHEL Colon ([id number]) [employer] ([id number]) [address] [place] [address] WBC (Bld) [#/Vol] 6.4 10*3/uL Normal 3.5-10.9 [facility] Comment on above: Performed By: #### C BCD #### MICHEL Colon ([id number]) [employer] ([id number]) [address] [place] [address] COMPREHENSIVE METABOLIC PANE David 05-22-2024 Albumin [Mass/Vol] 4.2 g/dL Normal 3.5-5.2 [facility] Comment on above: Performed By: #### C MP #### MICHEL Colon ([id number]) [facility] ([id number]) [address] [place] [address] Albumin/Globulin [Mass ratio] 1.7 {ratio} Normal 0.8-2.6 [facility] Comment on above: Performed By: #### C MP #### MICHEL Colon ([id number]) [facility] ([id number]) [address] [place] [address] ALP [Catalytic activity/Vol] 62 U/L Normal 23-144 [facility] Comment on above: Performed By: #### C MP #### MICHEL Colon ([id number]) [facility] [employer] ([id number]) [address] [place] [address] ALT [Catalytic activity/Vol] 18 U/L Normal 0-60 [facility] Comment on above: Performed By: #### C MP #### MICHEL Colon ([id number]) [employer] [facility] [employer] [facility] [employer] ([id number]) [address] [place] [address] AST [Catalytic activity/Vol] 16 U/L Normal 0-55 [facility] Comment on above: Performed By: #### C MP #### MICHEL Colon ([id number]) [facility] [employer] ([id number]) [address] [place] [address] Bilirubin [Mass/Vol] 0.3 mg/dL Normal 0.0-1.2 [facility] Comment on above: Performed By: #### C MP #### MICHEL Colon ([id number]) [employer] [facility] ([id number]) [address] [place] [address] Calcium [Mass/Vol] 9.6 mg/dL Normal 8.5-10.5 [facility] Comment on above: Performed By: #### C MP #### MICHEL Colon ([id number]) [facility] [employer] ([id number]) [address] [place] [address] Chloride [Moles/Vol] 103 mmol/L Normal 96-110 [facility] Comment on above: Performed By: #### C MP #### MICHEL Colon ([id number]) [employer] ([id number]) [address] [place] [address] CO2 [Moles/Vol] 23 mmol/L Normal 19-32 [facility] Comment on above: Performed By: #### C MP #### MICHEL Colon ([id number]) [employer] ([id number]) [address] [place] [address] Creatinine [Mass/Vol] 1.0 mg/dL Normal 0.5-1.2 [facility] Comment on above: Performed By: #### C MP #### MICHEL Colon ([id number]) [employer] ([id number]) [address] [place] [address] eGFRcr SerPlBld CKD-EPI 2020 55 MLS/MIN/1.73M2 Low >60 [facility] Comment on above: Performed By: #### C MP #### MICHEL Colon ([id number]) [employer] ([id number]) [address] [place] [address] Globulin (S) [Mass/Vol] 2.5 g/dL Normal 1.9-3.6 [facility] Comment on above: Performed By: #### C MP #### MICHEL Colon ([id number]) [employer] ([id number]) [address] [place] [address] Glucose [Mass/Vol] 275 mg/dL High 70-99 [facility] Comment on above: Result Comment: (NOT E) The [place] [employer] recommends the following guidelines: MG/DL <100 = NORMAL GLUCOSE 100-125= IMPAIRED FASTING GLUCOSE >=126 = PROVISIONAL DIAGNOSIS OF DIABETES ADA Workgroup Report, Diabetic Care, volume 40, August 2016 Performed By: #### C MP #### MICHEL Colon ([id number]) [employer] ([id number]) [address] [place] [address] Potassium [Moles/Vol] 4.7 mmol/L Normal 3.4-5.3 [facility] Comment on above: Performed By: #### C MP #### MICHEL Colon ([id number]) [employer] ([id number]) [address] [place] [address] Protein [Mass/Vol] 6.7 g/dL Normal 6.0-8.3 [facility] Comment on above: Performed By: #### C MP #### MICHEL Colon ([id number]) [employer] ([id number]) [address] [place] [address] Sodium [Moles/Vol] 138 mmol/L Normal 135-148 [facility] Comment on above: Performed By: #### C MP #### MICHEL Colon ([id number]) [employer] ([id number]) [address] [place] [address] Urea nitrogen [Mass/Vol] 24 mg/dL Normal 3-29 [facility] Comment on above: Performed By: #### C MP #### MICHEL Colon ([id number]) [employer] ([id number]) [address] [place] [address] Urea nitrogen/Creatinine [Mass ratio] 24 mg/mg Normal 7-25 [facility] Comment on above: Performed By: #### C MP #### MICHEL Colon ([id number]) [employer] ([id number]) [address] [place] [address] Fasting status Reported Ql FASTING Normal [facility] Comment on above: Performed By: #### C MP #### MICHEL Colon ([id number]) [employer] ([id number]) [address] [place] [address] Albumin [Mass/Vol] 4.2 g/dL Normal 3.5-5.2 Provid er Locations Albumin/Globulin [Mass ratio] 1.7 {ratio} Normal 0.8-2.6 Provider Locations ALP [Catalytic activity/Vol] 62 U/L Normal 23-144 Provider Locations ALT [Catalytic activity/Vol] 18 U/L Normal 0-60 Provider Locations AST [Catalytic activity/Vol] 16 U/L Normal 0-55 Provider Locations Bilirubin [Mass/Vol] 0.3 mg/dL Normal 0.0-1.2 Prov ider Locations Calcium [Mass/Vol] 9.6 mg/dL Normal 8.5-10.5 Provid er Locations Chloride [Moles/Vol] 103 mmol/L Normal 96-110 Prov ider Locations CO2 [Moles/Vol] 23 mmol/L Normal 19-32 Provider Locations Creatinine [Mass/Vol] 1.0 mg/dL Normal 0.5-1.2 Pro vider Locations ESTIMATED GFR 55 MLS/MIN/1.73M2 Low >60 Prov ider Locations FASTING STATUS FASTING Normal Provider Locations Globulin (S) [Mass/Vol] 2.5 g/dL Normal 1.9-3.6 Provider Locations Glucose [Mass/Vol] 275 mg/dL High 70-99 Provid er Locations Comment on above: Result Comment: (NOT E) The [place] [employer] recommends the following guidelines: MG/DL <100 = NORMAL GLUCOSE 100-125= IMPAIRED FASTING GLUCOSE >=126 = PROVISIONAL DIAGNOSIS OF DIABETES ADA Workgroup Report, Diabetic Care, volume 40, August 2016 Potassium [Moles/Vol] 4.7 mmol/L Normal 3.4-5.3 Pro vider Locations Protein [Mass/Vol] 6.7 g/dL Normal 6.0-8.3 Provid er Locations Sodium [Moles/Vol] 138 mmol/L Normal 135-148 Provid er Locations Urea nitrogen [Mass/Vol] 24 mg/dL Normal 3-29 Provider Locations Urea nitrogen/Creatinine [Mass ratio] 24 mg/mg Normal 7-25 Provider Locations HEMOGLOBIN A1C W/ EST AVG GL UCOSEon 05-22-2024 Glucose [Mass/Vol] 252 mg/dL Normal Provid er Locations HbA1c (Bld) [Mass fraction] 10.4 % High <5.7 Provider Locations Comment on above: Result Comment: (NOT E) The [place] [employer] recommends the following Guidelines: 5.7-6.4% Indicates increased risk for diabetes (Prediabetes). >6.5% Diagnostic of diabetes. In the absence of unequivocal hyperglycemia, results should be confirmed by repeat test. <7% Glycemic recommendation for non adults with diabetes. [place] [employer], Standards of Medical Care in Diabetes, Volume 40; 2017 HGB A1C WITH EST.GLUCon 05-12 Average glucose Estimated from glycated hemoglobin (Bld) [Mass/Vol] 252 mg/dL Normal [facility] Comment on above: Performed By: #### A 1CEG #### MICHEL Colon ([id number]) [facility] ([id number]) [address] [place] [address] HbA1c (Bld) [Mass fraction] 10.4 % High <5.7 [facility] Comment on above: Result Comment: (NOT E) The [place] [employer] recommends the following Guidelines: 5.7-6.4% Indicates increased risk for diabetes (Prediabetes). >6.5% Diagnostic of diabetes. In the absence of unequivocal hyperglycemia, results should be confirmed by repeat test. <7% Glycemic recommendation for non adults with diabetes. [place] [employer], Standards of Medical Care in Diabetes, Volume 40; 2017 Performed By: #### A 1CEG #### MICHEL Colon ([id number]) [facility] ([id number]) [address] [place] [address] LIPID PANEL (CORONARY RISK)o n 05-22-2024 Cholesterol [Mass/Vol] 94 mg/dL Normal <200 Pr ovider Locations Comment on above: Result Comment: (NOT E) DESIRABLE: <200 MG/DL BORDERLINE: 200-239 MG/DL HIGHER RISK: >239 MG/DL Cholesterol in HDL [Mass/Vol] 33 mg/dL Low >59 Provider Locations Comment on above: Result Comment: (NOT E) DESIRABLE: > OR = 60 MG/DL HIGHER RISK: <40 MG/DL Cholesterol in VLDL [Mass/Vol] 71 mg/dL High 4-38 Provider Locations LDL (CALCULATED) UNABLE TO CALCULATE DUE TO THE ELEVATED TRIGLYCERIDES. Normal <100 Provider Locations Comment on above: Result Comment: (NOT E) OPTIMAL: <100 MG/DL NEAR/ABOVE OPTIMAL:100-129 MG/DL BORDERLINE HIGH: 130-159 MG/DL HIGH: 160-189 MG/DL VERY HIGH: > OR = 190 MG/DL Triglyceride [Mass/Vol] 353 mg/dL High <150 Provider Locations Comment on above: Result Comment: (NOT E) NORMAL: <150 MG/DL BORDERLINE HIGH: 150-199 MG/DL HIGH: 200-499 MG/DL VERY HIGH: > OR = 500 MG/DL Nonfasting specimens may have modest increases in Triglyceride levels ([employer], 2019) LIPID PROFILEon 05-22-2024 Cholesterol [Mass/Vol] 94 mg/dL Normal <200 Co [facility] Comment on above: Result Comment: (NOT E) DESIRABLE: <200 MG/DL BORDERLINE: 200-239 MG/DL HIGHER RISK: >239 MG/DL Performed By: #### L IPID #### MICHEL Colon ([id number]) [facility] ([id number]) [address] [place] [address] Cholesterol in HDL [Mass/Vol] 33 mg/dL Low >59 [facility] Comment on above: Result Comment: (NOT E) DESIRABLE: > OR = 60 MG/DL HIGHER RISK: <40 MG/DL Performed By: #### L IPID #### MICHEL Colon ([id number]) [facility] ([id number]) [address] [place] [address] Cholesterol in LDL [Mass/Vol] UNABLE TO CALCULATE DUE TO THE ELEVATED TRIGLYCERIDES. Normal <100 [facility] Comment on above: Result Comment: (NOT E) OPTIMAL: <100 MG/DL NEAR/ABOVE OPTIMAL:100-129 MG/DL BORDERLINE HIGH: 130-159 MG/DL HIGH: 160-189 MG/DL VERY HIGH: > OR = 190 MG/DL Performed By: #### L IPID #### MICHEL Colon ([id number]) [facility] ([id number]) [address] [place] [address] [place] Cholesterol in VLDL [Mass/Vol] 71 mg/dL High 4-38 [facility] Comment on above: Performed By: #### L IPID #### MICHEL Colon ([id number]) [facility] ([id number]) [address] [place] [address] [place] Triglyceride [Mass/Vol] 353 mg/dL High <150 [facility] Comment on above: Result Comment: (NOT E) NORMAL: <150 MG/DL BORDERLINE HIGH: 150-199 MG/DL HIGH: 200-499 MG/DL VERY HIGH: > OR = 500 MG/DL Nonfasting specimens may have modest increases in Triglyceride levels ([employer], 2019) Performed By: #### L IPID #### MICHEL Colon ([id number]) [facility] ([id number]) [address] [place] [address] NURSING NOTEon 05-22-2024 Supervisor [employer]ing [employer] Authentication Interface Message Text Patient here for follow up med check. This will be here last visit. She is moving to [facility] next weekend. Normal Provider Locations PROGRESS NOTESon 05-22-2024 Supervisor [employer]ing [employer] Authentication Interface Message Text ASSESSMENT ICD-10-CM ICD-9-CM 1. Type 2 diabetes mellitus without complication, without long-term current use of insulin (HC CODE) E11.9 250.00 HEMOGLOBIN A1C W/ EST AVG GLUCOSE 2. Essential hypertension I10 401.9 amLODIPine (NORVASC) 5 mg tablet lisinopriL (PRINIVIL,ZESTRIL) 20 mg tablet 3. Hyperlipidemia, unspecified hyperlipidemia type E78.5 272.4 CBC WITH DIFFERENTIAL COMPREHENSIVE METABOLIC PANEL LIPID PANEL (CORONARY RISK) 4. Other specified hypothyroidism E03.8 244.8 5. Paroxysmal atrial fibrillation (HC CODE) I48.0 427.31 6. Peripheral vascular disease (HC CODE) I73.9 443.9 7. 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 Urinary urgency R39.15 788.63 oxybutynin (DITROPAN XL) 10 mg SR-tablet 24 Hr 9. Acquired hypothyroidism E03.9 244.9 REFLEX TSH MEDICAL DECISION MAKING 1. DM- Stable, continue current regimen. Trulicity continued 1.5mg with more routine dosing expect improvement. She is moving out of town. Ok to continue non-controlled medicines for 1 year. 2. HTN- Stable, continue current regimen. 3. HLD- Stable, continue current regimen. 4. Afib- Stable, continue current regimen. 5. Hypothyroidism-continue 112mcg daily. Check labs prior to next visit. 6. PVD- continue to follow up with wound care for evaluation and monitoring. 7. Paraparesis- continue PT to improve function Weight management and counseling: Estimated body mass index is 29.79 kg/m? as calculated from the following: Height as of this encounter: 1.778 m (5' 10"). Weight as of this encounter: 94.2 kg (207 lb 9.6 oz).. This was discussed with patient. The BMI is noted to be: overweight, BMI management plan is: POC weight counseling and POC exercise counseling. Electronically signed by: Lisy Pace MD, 05/22/2024 9:26 AM The electronic medical record was reviewed and updated as indicated via the [employer] as Reviewed time-stamps. SUBJECTIVE: CHIEF COMPLAINT Chief Complaint Patient presents with High Blood Pressure NURSING NOTES: Nursing Notes: Magnolia Murguia LPN 05/22/24 0851 Signed Patient here for follow up med check. This will be here last visit. She is moving to [facility] next weekend. HISTORY OF PRESENT ILLNESS: Hanna Nelson is a 83 year old female 1. DM with ulcer- taking Trulicity, glimepiride, metformin XR 2. HTN- taking medications as prescribed. 3. HLD- taking medications as prescribed. 4. Afib- taking medications as prescribed. 5. Hypothyroidism- taking levothyroxine as prescribed. REVIEW OF SYSTEMS: Review of systems negative except for as stated in HPI. Past Medical History: Diagnosis Date Arthritis Generalized Back pain Charcot's arthropathy 2016 Right Foot Ulcer COVID-19 07/26/2020 Diabetes DX- 1997 Type 2- On Metformin Fall 06/30/2017 Laceration to Scalp Hypercholesteremia On Lipitor Hypothyroid On Levothyroxine Irregular heart beat 07/31/2017 1 episode-ST done results negative Neurogenic claudication due to lumbar spinal stenosis October 2017 Peripheral neuropathy On Gabapentin Peripheral vascular disease (HC CODE) 2010 Unspecified essential hypertension On Amlodipine, Lisinopril Social History Tobacco Use Smoking status: Former Current packs/day: 0.00 Average packs/day: 0.5 packs/day for 7.0 years (3.5 ttl pk-yrs) Types: Cigarettes Start date: 08/12/1957 Quit date: 08/12/1964 Years since quittin.8 Smokeless tobacco: Never Vaping Use Vaping status: Never Used Substance Use Topics Alcohol use: Yes Alcohol/week: 1.0 standard drink of alcohol Types: 1 Cans of beer per week Comment: less than monthly Drug use: No OBJECTIVE: BP 120/68 SpO2 99% Physical Exam Constitutional: Appearance: She is well-developed. HENT: Head: Normocephalic and atraumatic. Cardiovascular: Rate and Rhythm: Normal rate and regular rhythm. Pulses: Normal pulses. Heart sounds: Normal heart sounds. No murmur heard. Pulmonary: Effort: Pulmonary effort is normal. Breath sounds: Normal breath sounds. Abdominal: General: Abdomen is flat. Bowel sounds are normal. Palpations: Abdomen is soft. Musculoskeletal: General: Normal range of motion. Skin: General: Skin is warm. Neurological: General: No focal deficit present. Mental Status: She is alert and oriented to person, place, and time. Normal Provider Locations REFLEX TSHon 05-22-2024 TSH Qn 3.840 MCIU/ML Normal 0.400-4.50 0 [facility] Comment on above: Performed By: #### R TSH #### MICHEL Colon ([id number]) [facility] ([id number]) [address] [place] [address] TSH 3.840 MCIU/ML Normal 0.400-4.50 0 Provider Locations CARE PLANon 03-19-2024 Supervisor Forming And Tempering Authentication Interface Message Text SQ debridement completed by CLIFF. Pt tolerated well. Continue current POC. Normal [facility] MEDICAL STAFFon 03-19-2024 Supervisor Forming And Tempering Authentication Interface Message Text [facility] 03/19/2024 Patient Name: Hanna Nelson : 1940 AGE: [age] year old GENDER: Female Chief Complaint/Reason for Visit Hanna Nelson is a 81 year old female who presents today for wound care of chronic wound on the bottom of the right foot. Nothing new. Assessment/Dermatologic Exam/Plan Assessment -Right lower extremity ulceration down to subcutaneous tissue (Daniels grade 2) -Charcot foot deformity right foot -Type 2 diabetes mellitus with peripheral neuropathy -Abrasion right foot Plan -Patient was seen, evaluated, and treated today. -No signs of infection today. Monitor off antibiotics -Continue with local wound care to the area -Patient still working on picking up new diabetic inserts -Any signs of infection before the next visit go to the emergency room -Follow-up 2 weeks Patient's Problem List Patient Active Problem List Diagnosis Primary hypertension Type 2 diabetes mellitus treated with insulin (HC CODE) Arthritis Hypothyroidism due to acquired atrophy of thyroid Palpitation Hyponatremia Spinal stenosis of lumbar region with neurogenic claudication Paroxysmal atrial fibrillation (HC CODE) Postoperative ileus (HC CODE) Paraparesis (HC CODE) Ataxia Cellulitis Peripheral vascular disease (HC CODE) Cellulitis of right lower leg NAYELY, resolved Mixed hyperlipidemia Education regarding disease process, wound care, pressure relief and elevation discussed with patient today. Time spent with patient and patient care related issues in addition to coordination of patient's care with other physicians/agencies: Discharge Instructions were given to patient, significant other, caregiver, or DPOHC. Follow-up Wound Right Foot Plantar (Active) Dressing Status / Change Moist with drainage 03/19/24 1300 Wound Bed Appearance Red 03/19/24 1300 Drainage Amount Moderate 03/19/24 1300 Drainage Appearance Serosanguineous;Brown 03/19/24 1300 Odor None 03/19/24 1300 Wound cleanser Normal saline 03/19/24 1300 Specific Procedures Other (Comment) 07/25/23 1331 Advanced Wound Intervention Photos 03/05/24 1319 Wound length (cm) 0.4 cm 03/19/24 1400 Wound width (cm) 0.7 cm 03/19/24 1400 Wound depth (cm) 0.25 cm 03/19/24 1400 Wound Surface Area (length x width) 0.28 03/19/24 1400 Undermining / Tunneling No 03/05/24 1319 Periwound (surrounding) tissue Calloused 03/19/24 1300 Primary Dressing Collagens;Antimicrobial;Alg inate 03/05/24 1359 Secondary Dressing Foam Dressing-Silicone Boarder 03/05/24 1359 Objective Vitals Signs: Visit Vitals BP 154/70 Pulse 64 Temp 96.2 F (35.7 C) Resp 16 OB Status Postmenopausal Smoking Status Former General Exam GENERAL: The patient is in no acute distress. RESP: Nonlabored breathing. No distress. Normal respirations. ABD: benign EXTREMITIES: No signs of infection to the right lower extremity Medications and Allergies No outpatient medications have been marked as taking for the 03/19/24 encounter (Hospital Encounter) with [facility] 4. Allergies Allergen Reactions Tape 1"X5yd [Adhesive Tape] Rash Redness. Avoids. Prefers paper tape Labs: WBC COUNT Date Value Ref Range Status 09/12/2023 8.1 3.5 - 10.9 K/uL Final WBC Count Date Value Ref Range Status 11/12/2023 5.8 3.5 - 10.9 K/uL Final HEMOGLOBIN Date Value Ref Range Status 09/12/2023 12.2 11.2 - 15.7 G/DL Final Hemoglobin Date Value Ref Range Status 11/12/2023 10.6 11.2 - 15.7 g/dL Final HEMATOCRIT Date Value Ref Range Status 09/12/2023 36.8 34.0 - 49.0 % Final Hematocrit Date Value Ref Range Status 11/12/2023 32.0 34.0 - 49.0 % Final PLATELET COUNT Date Value Ref Range Status 09/12/2023 268 140 - 400 K/uL Final Platelet Count Date Value Ref Range Status 11/12/2023 191 140 - 400 K/uL Final SODIUM Date Value Ref Range Status 09/12/2023 138 135 - 148 MEQ/L Final 10/21/2020 135 135 - 148 MEQ/L Sodium Date Value Ref Range Status 11/12/2023 141 135 - 148 mEq/L Final POTASSIUM Date Value Ref Range Status 09/12/2023 4.7 3.4 - 5.3 MEQ/L Final Potassium Date Value Ref Range Status 11/12/2023 4.0 3.4 - 5.3 mEq/L Final CHLORIDE Date Value Ref Range Status 09/12/2023 101 96 - 110 MEQ/L Final Chloride Date Value Ref Range Status 11/12/2023 106 96 - 110 mEq/L Final CARBON DIOXIDE Date Value Ref Range Status 09/12/2023 24 19 - 32 MEQ/L Final Carbon Dioxide Date Value Ref Range Status 11/12/2023 23 19 - 32 mEq/L Final GLUCOSE Date Value Ref Range Status 09/12/2023 186 70 - 99 MG/DL Final Comment: (NOTE) The [place] [employer] recommends the following guidelines: MG/DL <100 = NORMAL GLUCOSE 100-125= IMPAIRED FASTING GLUCOSE >=126 = PROVISIONAL DIAGNOSIS OF DIABETES ADA Workgroup Report, Diabetic Care, volume 40August 2016 Glucose Date Value Ref Range Status 11/12/2023 148 70 (more content not included)... Normal [facility] CARE PLANon 03-05-2024 Supervisor Forming And Tempering Authentication Interface Message Text Stable. Continue POC. Normal [facility] MEDICAL STAFFon 03-05-2024 Supervisor Forming And Tempering Authentication Interface Message Text [facility] 03/05/2024 Patient Name: Hanna Nelson : 1940 AGE: [age] year old GENDER: Female Chief Complaint/Reason for Visit Hanna Nelson is a 81 year old female who presents today for wound care of chronic wound on the bottom of the right foot. Nothing new. Assessment/Dermatologic Exam/Plan Assessment -Right lower extremity ulceration down to subcutaneous tissue (Daniels grade 2) -Charcot foot deformity right foot -Type 2 diabetes mellitus with peripheral neuropathy -Abrasion right foot Plan -Patient was seen, evaluated, and treated today. -No signs of infection today. Monitor off antibiotics -Continue with local wound care to the area -Patient was told that her new modified diabetic inserts are in, but she forgot to pick them up. Needs to make another appointment to get them. -Any signs of infection before the next visit go to the emergency room -Follow-up 2 weeks Patient's Problem List Patient Active Problem List Diagnosis Primary hypertension Type 2 diabetes mellitus treated with insulin (HC CODE) Arthritis Hypothyroidism due to acquired atrophy of thyroid Palpitation Hyponatremia Spinal stenosis of lumbar region with neurogenic claudication Paroxysmal atrial fibrillation (HC CODE) Postoperative ileus (HC CODE) Paraparesis (HC CODE) Ataxia Cellulitis Peripheral vascular disease (HC CODE) Cellulitis of right lower leg NAYELY, resolved Mixed hyperlipidemia Education regarding disease process, wound care, pressure relief and elevation discussed with patient today. Time spent with patient and patient care related issues in addition to coordination of patient's care with other physicians/agencies: Discharge Instructions were given to patient, significant other, caregiver, or DPOHC. Follow-up Wound Right Foot Plantar (Active) Dressing Status / Change Moist with drainage 03/05/24 1319 Wound Bed Appearance Red 03/05/24 1319 Drainage Amount Moderate 03/05/24 1319 Drainage Appearance Serosanguineous 03/05/24 1319 Odor None 03/05/24 1319 Wound cleanser Normal saline 03/05/24 1319 Specific Procedures Other (Comment) 07/25/23 1331 Advanced Wound Intervention Photos 03/05/24 1319 Wound length (cm) 0.5 cm 03/05/24 1359 Wound width (cm) 0.5 cm 03/05/24 1359 Wound depth (cm) 0.25 cm 03/05/24 1359 Wound Surface Area (length x width) 0.25 03/05/24 1359 Undermining / Tunneling No 03/05/24 1319 Periwound (surrounding) tissue Calloused;Macerated 03/05/24 1319 Primary Dressing Collagens;Antimicrobial;Alg inate 03/05/24 1359 Secondary Dressing Foam Dressing-Silicone Boarder 03/05/24 1359 Objective Vitals Signs: Visit Vitals BP 137/60 Pulse 67 Temp 96.3 F (35.7 C) Resp 16 OB Status Postmenopausal Smoking Status Former General Exam GENERAL: The patient is in no acute distress. RESP: Nonlabored breathing. No distress. Normal respirations. ABD: benign EXTREMITIES: No signs of infection to the right lower extremity Medications and Allergies No outpatient medications have been marked as taking for the 03/05/24 encounter (Hospital Encounter) with [facility] 4. Allergies Allergen Reactions Tape 1"X5yd [Adhesive Tape] Rash Redness. Avoids. Prefers paper tape Labs: WBC COUNT Date Value Ref Range Status 09/12/2023 8.1 3.5 - 10.9 K/uL Final WBC Count Date Value Ref Range Status 11/12/2023 5.8 3.5 - 10.9 K/uL Final HEMOGLOBIN Date Value Ref Range Status 09/12/2023 12.2 11.2 - 15.7 G/DL Final Hemoglobin Date Value Ref Range Status 11/12/2023 10.6 11.2 - 15.7 g/dL Final HEMATOCRIT Date Value Ref Range Status 09/12/2023 36.8 34.0 - 49.0 % Final Hematocrit Date Value Ref Range Status 11/12/2023 32.0 34.0 - 49.0 % Final PLATELET COUNT Date Value Ref Range Status 09/12/2023 268 140 - 400 K/uL Final Platelet Count Date Value Ref Range Status 11/12/2023 191 140 - 400 K/uL Final SODIUM Date Value Ref Range Status 09/12/2023 138 135 - 148 MEQ/L Final 10/21/2020 135 135 - 148 MEQ/L Sodium Date Value Ref Range Status 11/12/2023 141 135 - 148 mEq/L Final POTASSIUM Date Value Ref Range Status 09/12/2023 4.7 3.4 - 5.3 MEQ/L Final Potassium Date Value Ref Range Status 11/12/2023 4.0 3.4 - 5.3 mEq/L Final CHLORIDE Date Value Ref Range Status 09/12/2023 101 96 - 110 MEQ/L Final Chloride Date Value Ref Range Status 11/12/2023 106 96 - 110 mEq/L Final CARBON DIOXIDE Date Value Ref Range Status 09/12/2023 24 19 - 32 MEQ/L Final Carbon Dioxide Date Value Ref Range Status 11/12/2023 23 19 - 32 mEq/L Final GLUCOSE Date Value Ref Range Status 09/12/2023 186 70 - 99 MG/DL Final Comment: (NOTE) The [place] [employer] recommends the following guidelines: MG/DL <100 = NORMAL GLUCOSE 100-125= IMPAIRED FASTING GLUCOSE >=126 = PROVISIONAL DIAGNOSIS OF DIABETES ADA Workgroup Report, Diabe (more content not included)... Normal [facility] CARE PLANon 01-30-2024 Supervisor Forming And Tempering Authentication Interface Message Text Continue POC. Normal [facility] MEDICAL STAFFon 01-30-2024 Supervisor Forming And Tempering Authentication Interface Message Text [facility] W[facility] 01/30/2024 Patient Name: Hanna Nelson : 1940 AGE: [age] year old GENDER: Female Chief Complaint/Reason for Visit Hanna Nelson is a 81 year old female who presents today for wound care of chronic wound on the bottom of the right foot. Nothing new. Assessment/Dermatologic Exam/Plan Assessment -Right lower extremity ulceration down to subcutaneous tissue (Daniels grade 2) -Charcot foot deformity right foot -Type 2 diabetes mellitus with peripheral neuropathy -Abrasion right foot Plan -Patient was seen, evaluated, and treated today. -No signs of infection today. Monitor off antibiotics -Continue with local wound care to the area -Any signs of infection before the next visit go to the emergency room -Follow-up 4 week for recheck, patient is going on vacation until then Patient's Problem List Patient Active Problem List Diagnosis Primary hypertension Type 2 diabetes mellitus treated with insulin (HC CODE) Arthritis Hypothyroidism due to acquired atrophy of thyroid Palpitation Hyponatremia Spinal stenosis of lumbar region with neurogenic claudication Paroxysmal atrial fibrillation (HC CODE) Postoperative ileus (HC CODE) Paraparesis (HC CODE) Ataxia Cellulitis Peripheral vascular disease (HC CODE) Cellulitis of right lower leg NAYELY, resolved Mixed hyperlipidemia Education regarding disease process, wound care, pressure relief and elevation discussed with patient today. Time spent with patient and patient care related issues in addition to coordination of patient's care with other physicians/agencies: Discharge Instructions were given to patient, significant other, caregiver, or DPOHC. Follow-up Wound Right Foot Plantar (Active) Dressing Status / Change Moist with drainage 01/30/24 1300 Wound Bed Appearance [place] 01/30/24 1300 Drainage Amount Moderate 01/30/24 1300 Drainage Appearance Serosanguineous 01/30/24 1300 Odor None 01/30/24 1300 Wound cleanser Body wash / periwash 01/30/24 1300 Specific Procedures Other (Comment) 07/25/23 1331 Advanced Wound Intervention Photos 01/09/24 1400 Wound length (cm) 0.4 cm 01/30/24 1400 Wound width (cm) 0.5 cm 01/30/24 1400 Wound depth (cm) 0.25 cm 01/30/24 1400 Wound Surface Area (length x width) 0.2 01/30/24 1400 Undermining / Tunneling Yes 11/14/23 1300 Periwound (surrounding) tissue Calloused;Macerated 01/30/24 1300 Primary Dressing Other (Comment);Collagens;Alginat e;Antimicrobial;Foam Dressing-Silicone Border 01/30/24 1400 Secondary Dressing Foam Dressing-Silicone Boarder 01/09/24 1419 Objective Vitals Signs: Visit Vitals BP 123/75 Pulse 107 Temp 96.3 F (35.7 C) Resp 16 OB Status Postmenopausal Smoking Status Former General Exam GENERAL: The patient is in no acute distress. RESP: Nonlabored breathing. No distress. Normal respirations. ABD: benign EXTREMITIES: Edema noted to the right lower extremity increased improved to previous. No erythema today. No crepitus fluctuance drainage malodor or probe to bone. Medications and Allergies No outpatient medications have been marked as taking for the 01/30/24 encounter (Hospital Encounter) with [facility] 5. Allergies Allergen Reactions Tape 1"X5yd [Adhesive Tape] Rash Redness. Avoids. Prefers paper tape Labs: WBC COUNT Date Value Ref Range Status 09/12/2023 8.1 3.5 - 10.9 K/uL Final WBC Count Date Value Ref Range Status 11/12/2023 5.8 3.5 - 10.9 K/uL Final HEMOGLOBIN Date Value Ref Range Status 09/12/2023 12.2 11.2 - 15.7 G/DL Final Hemoglobin Date Value Ref Range Status 11/12/2023 10.6 11.2 - 15.7 g/dL Final HEMATOCRIT Date Value Ref Range Status 09/12/2023 36.8 34.0 - 49.0 % Final Hematocrit Date Value Ref Range Status 11/12/2023 32.0 34.0 - 49.0 % Final PLATELET COUNT Date Value Ref Range Status 09/12/2023 268 140 - 400 K/uL Final Platelet Count Date Value Ref Range Status 11/12/2023 191 140 - 400 K/uL Final SODIUM Date Value Ref Range Status 09/12/2023 138 135 - 148 MEQ/L Final 10/21/2020 135 135 - 148 MEQ/L Sodium Date Value Ref Range Status 11/12/2023 141 135 - 148 mEq/L Final POTASSIUM Date Value Ref Range Status 09/12/2023 4.7 3.4 - 5.3 MEQ/L Final Potassium Date Value Ref Range Status 11/12/2023 4.0 3.4 - 5.3 mEq/L Final CHLORIDE Date Value Ref Range Status 09/12/2023 101 96 - 110 MEQ/L Final Chloride Date Value Ref Range Status 11/12/2023 106 96 - 110 mEq/L Final CARBON DIOXIDE Date Value Ref Range Status 09/12/2023 24 19 - 32 MEQ/L Final Carbon Dioxide Date Value Ref Range Status 11/12/2023 23 19 - 32 mEq/L Final GLUCOSE Date Value Ref Range Status 09/12/2023 186 70 - 99 MG/DL Final Comment: (NOTE) The [place] [employer] recommends the following guidelines: MG/DL <100 = NORMAL GLUCOSE 100-125= IMPAIRED FASTING GLUCOSE >=126 = (more content not included)... Normal [facility] MEDICAL STAFFon 01-23-2024 Supervisor Forming And Tempering Authentication Interface Message Text [facility] 01/23/2024 Patient Name: Hanna Nelson : 1940 AGE: [age] year old GENDER: Female Chief Complaint/Reason for Visit Hanna Nelson is a 81 year old female who presents today for wound care of chronic wound on the bottom of the right foot. Nothing new. Had a good time on her vacation to [place]. 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 -No signs of infection today. Monitor off antibiotics -Continue with local wound care to the area -Any signs of infection before the next visit go to the emergency room -Follow-up 1 week for recheck Patient's Problem List Patient Active Problem List Diagnosis Primary hypertension Type 2 diabetes mellitus treated with insulin (HC CODE) Arthritis Hypothyroidism due to acquired atrophy of thyroid Palpitation Hyponatremia Spinal stenosis of lumbar region with neurogenic claudication Paroxysmal atrial fibrillation (HC CODE) Postoperative ileus (HC CODE) Paraparesis (HC CODE) Ataxia Cellulitis Peripheral vascular disease (HC CODE) Cellulitis of right lower leg NAYELY, resolved Mixed hyperlipidemia Education regarding disease process, wound care, pressure relief and elevation discussed with patient today. Time spent with patient and patient care related issues in addition to coordination of patient's care with other physicians/agencies: Discharge Instructions were given to patient, significant other, caregiver, or DPOHC. Follow-up Wound Right Foot Plantar (Active) Dressing Status / Change Moist with drainage 01/23/24 1300 Wound Bed Appearance [place] 01/23/24 1300 Drainage Amount Moderate 01/23/24 1300 Drainage Appearance Serosanguineous 01/23/24 1300 Odor None 01/23/24 1300 Wound cleanser Normal saline 01/23/24 1300 Specific Procedures Other (Comment) 07/25/23 1331 Advanced Wound Intervention Photos 01/09/24 1400 Wound length (cm) 0.4 cm 01/23/24 1400 Wound width (cm) 0.8 cm 01/23/24 1400 Wound depth (cm) 0.2 cm 01/23/24 1400 Wound Surface Area (length x width) 0.32 01/23/24 1400 Undermining / Tunneling Yes 11/14/23 1300 Periwound (surrounding) tissue Calloused 01/23/24 1300 Primary Dressing Collagens;Alginate;Antimicr obial 01/23/24 1400 Secondary Dressing Foam Dressing-Silicone Boarder 01/09/24 1419 Objective Vitals Signs: Visit Vitals BP 154/70 Pulse 83 Temp 96.9 F (36.1 C) Resp 16 OB Status Postmenopausal Smoking Status Former General Exam GENERAL: The patient is in no acute distress. RESP: Nonlabored breathing. No distress. Normal respirations. ABD: benign EXTREMITIES: Edema noted to the right lower extremity increased improved to previous. No erythema today. No crepitus fluctuance drainage malodor or probe to bone. Medications and Allergies No outpatient medications have been marked as taking for the 01/23/24 encounter (Hospital Encounter) with [facility]. Allergies Allergen Reactions Tape 1"X5yd [Adhesive Tape] Rash Redness. Avoids. Prefers paper tape Labs: WBC COUNT Date Value Ref Range Status 09/12/2023 8.1 3.5 - 10.9 K/uL Final WBC Count Date Value Ref Range Status 11/12/2023 5.8 3.5 - 10.9 K/uL Final HEMOGLOBIN Date Value Ref Range Status 09/12/2023 12.2 11.2 - 15.7 G/DL Final Hemoglobin Date Value Ref Range Status 11/12/2023 10.6 11.2 - 15.7 g/dL Final HEMATOCRIT Date Value Ref Range Status 09/12/2023 36.8 34.0 - 49.0 % Final Hematocrit Date Value Ref Range Status 11/12/2023 32.0 34.0 - 49.0 % Final PLATELET COUNT Date Value Ref Range Status 09/12/2023 268 140 - 400 K/uL Final Platelet Count Date Value Ref Range Status 11/12/2023 191 140 - 400 K/uL Final SODIUM Date Value Ref Range Status 09/12/2023 138 135 - 148 MEQ/L Final 10/21/2020 135 135 - 148 MEQ/L Sodium Date Value Ref Range Status 11/12/2023 141 135 - 148 mEq/L Final POTASSIUM Date Value Ref Range Status 09/12/2023 4.7 3.4 - 5.3 MEQ/L Final Potassium Date Value Ref Range Status 11/12/2023 4.0 3.4 - 5.3 mEq/L Final CHLORIDE Date Value Ref Range Status 09/12/2023 101 96 - 110 MEQ/L Final Chloride Date Value Ref Range Status 11/12/2023 106 96 - 110 mEq/L Final CARBON DIOXIDE Date Value Ref Range Status 09/12/2023 24 19 - 32 MEQ/L Final Carbon Dioxide Date Value Ref Range Status 11/12/2023 23 19 - 32 mEq/L Final GLUCOSE Date Value Ref Range Status 09/12/2023 186 70 - 99 MG/DL Final Comment: (NOTE) The [place] recommends the following guidelines: MG/DL <100 = NORMAL (more content not included)... Normal [facility] NURSING NOTEon 01-13-2024 Supervisor [employer]ing [employer] Authentication Interface Message Text Why are you here today?6 month ov Is there anything you want the provider to specifically discuss with you today?no Have you had any new cardiac symptoms? (chest pain/SOB/palpitations/leg swelling/ bleeding/ claudication/presyncope/syn cope) Yes [] Describe symptoms : No [x] Do you need any refills? Yes [] No [x] Is your pharmacy information correct? Yes [x] Did you bring in your medications today? (please encourage patient to bring meds/med list for future visits) Yes [x] No [] Have you had any hospitalizations or cardiac testing since your last visit Yes [] No [x] Normal Provider Locations PATIENT INSTRUCTIONSon 01-12 Supervisor [employer] Authentication Interface Message Text Thank you for choosing [facility] for your cardiology care. During your visit today, we reviewed and confirmed your cardiac medications along with medication prescribed by your other healthcare team members. Please be sure to discuss any changes to medication with your providers. Please bring a list of ALL medications (or the bottles) with you to EVERY appointment. Also include vitamins and [id number] medications. Did your provider order testing today? If yes, then you will receive your results in three possible ways. You can receive a [employer] message, a phone call, or letter in the mail. Please note, if you are an active [employer] user, some of your testing will be available within 1-2 days. If blood work was ordered at your visit, an order has already been placed to [facility]. Please contact your nearest [facility] location to schedule an appointment or visit surespot/locations. If we are unable to schedule your testing, you are welcome to contact central scheduling to make those appointment(s) at [phone]. Your provider has made a recommendation for your future appointment. If you have not yet scheduled, you are welcome to contact us, and we will be pleased to assist you. Please note that our office hours are Saturday-Saturday 8:00 am-4:30 pm. Please keep all follow up appointments and we look forward to seeing you. Finally, please know that it is good for your heart to exercise and follow a healthy, low-fat diet as advised by your physician and health care providers. Your feedback matters! You may be receiving a survey about your visit today via text or e-mail. We strive to give excellent service. Thank you. If you are experiencing a medical emergency, please call 911 immediately. It's easy to register for a [employer] account if you don't already have one. With a [employer] account you can manage your health record, view test results, schedule appointments and more. Visit [email or web address] to request your [employer] account today. For any questions or issues with your [employer] accounts, please call [phone] Dr. Hernandez's clinical staff can be reached at the following phone number: [phone] Press Option 2 for Clinical Staff Then Press Option 6 again for Suzanne LOREDO for Dr. Hernandez Normal Provider Locations PROGRESS NOTESon 01-13-2024 Supervisor [employer]ing [employer] Authentication Interface Message Text [address], [place] [address] CARDIOLOGY NEW PATIENT ENCOUNTER 01/14/2024 Patient Name: Hanna Nelson : 1940 Assessment/Plan ASSESSMENT: Paroxysmal atrial fibrillation (HC CODE) - EKG Standard - TRULICITY 1.5 mg/0.5 mL Pen Injector injection; Inject 1.5 mg subcutaneously every 7 days Essential hypertension - EKG Standard - TRULICITY 1.5 mg/0.5 mL Pen Injector injection; Inject 1.5 mg subcutaneously every 7 days Mixed hyperlipidemia - EKG Standard - TRULICITY 1.5 mg/0.5 mL Pen Injector injection; Inject 1.5 mg subcutaneously every 7 days Peripheral vascular disease (HC CODE) PLAN: History of paroxysmal atrial fibrillation initially diagnosed in 2018 currently on Eliquis 5 mg twice a day for CVA prophylaxis. CHADVASC score 5 for age, gender female, hypertension, and peripheral vascular disease. ECG today sinus rhythm. Continue atenolol 50 mg twice a day for blood pressure rate control. Nuclear stress test 2020 reviewed my personal interpretation no evidence of ischemia or scar with an EF of 75%. Hypertension controlled continue current medication. Dyslipidemia continue fenofibrate and atorvastatin. Thank you so much for referring this patient to me. Please do not hesitate to call for any questions or concerns. Subjective HPI HPI: Hanna Nelson is a 83 year old female to establish care previously followed up with interventionalists Dr. Wilson. Patient overall has no cardiac complaints. Past Medical History: Diagnosis Date ? Arthritis Generalized ? Back pain ? Charcot's arthropathy 2015 Right Foot Ulcer ? COVID-19 07/26/2020 ? Diabetes DX- 1996 Type 2- On Metformin ? Fall 06/30/2017 Laceration to Scalp ? Hypercholesteremia On Lipitor ? Hypothyroid On Levothyroxine ? Irregular heart beat 07/31/2017 1 episode-ST done results negative ? Neurogenic claudication due to lumbar spinal stenosis October 2017 ? Peripheral neuropathy On Gabapentin ? Peripheral vascular disease (HC CODE) 2010 ? Unspecified essential hypertension On Amlodipine, Lisinopril Past Surgical History: Procedure Laterality Date ? CARDIAC STRESS TST,COMPLETE 08/01/2017 MVS- Irregular Heart Beat- Results Negative-EF>70% ? CAUDAL EPIDURAL BLOCK 09/02/2017 ? ECHO Historical 1987 [facility]- ? Why -Results Good ? EPIDURAL LUMBAR TRANSFORMINAL Left 03/25/2017 L3-L4 ? LAMINECTOMY DECOMPRESSION POSTERIOR 3 LEVEL N/A 10/22/2017 LAMINECTOMY DECOMPRESSION POSTERIOR 3 LEVEL performed by Adolfo Edwards MD at [facility] MAIN OR ? LIG/TRNSXJ FLP TUBE ABDL/VAG APPR UNI/BI Ligation or Transection of Fallopian Tubes, Unilat or Bilat ? LUMBAR TRANSFORAMINAL EPIDURAL 04/29/2017 L4-L5 ? Other Surgical History Left 01/24/2015 Left Foot Metatarsal Head Bone Biopsy per Dr Ann Vasquez @ [facility] ? Other Surgical History Right 10/17/2015 Irigation W/Sharp Excisional Debridement Right Foot. Mid Foot Exostectomy per Dr Ann Vasquez @ [facility] ? 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 Other Surgical History 2009 Fractured Hip ? REMOVAL GALLBLADDER [facility] ? WOUND VAC APPLICATION/CHANGE N/A 10/22/2017 WOUND VAC APPLICATION/CHANGE performed by Adolfo Edwards MD at [facility] MAIN OR ALLERGIES: Allergies Allergen Reactions ? Tape 1"X5yd [Adhesive Tape] Rash Redness. Avoids. Prefers paper tape MEDICATIONS: Current Outpatient Medications Medication Sig Dispense Refill ? TRULICITY 1.5 mg/0.5 mL Pen Injector injection Inject 1.5 mg subcutaneously every 7 days ? levothyroxine (SYNTHROID) 112 mcg tablet Take 1 Tab by mouth daily before breakfast 90 Tab 3 ? gabapentin (NEURONTIN) 300 mg capsule Take 1 Cap by mouth two times a day 180 Cap 3 ? fenofibrate (LOFIBRA) 160 mg tablet Take 1 Tab by mouth daily 90 Tab 3 ? glimepiride (AMARYL) 4 mg tablet Take 1 Tab by mouth two times a day 180 Tab 3 ? apixaban (ELIQUIS) 5 mg tablet Take 1 Tab by mouth two times a day 180 Tab 3 ? metFORMIN XR (GLUCOPHAGE XR) 500 mg SR-tablet 24 Hr Take 2 Tab by mouth twice a day before meals 360 Tab 3 ? AtorvaSTATin (LIPITOR) 40 mg tablet Take 1 Tab by mouth daily 90 Tab 3 ? atenoloL (TENORMIN) 50 mg tablet Take 1 Tab by mouth twice daily at 8am and 5pm 180 Tab 3 ? oxybutynin (DITROPAN XL) 10 mg SR-tablet 24 Hr Take 1 Tab by mouth daily 90 Tab 3 ? amLODIPine (NORVASC) 5 mg tablet Take 1 Tab by mouth daily 90 Tab 3 ? lisinopriL (PRINIVIL,ZESTRIL) 20 mg tablet Take 1 Tab by mouth two times a day 180 Tab 3 ? Blood Sugar Diagnostic Strip Qd to bid; dispense brand insurance will cover 100 Strip 11 ? HANDICAP PRIVILEGES TAG/STICKER Please issue a Handicap Privileges Tag/Sticker valid from 01/15/2023 to 01/16/2028 1 Each 0 ? lancets 30 gauge Misc by Miscellaneous route Qd to bid 100 Each 3 ? FOLIC ACID/MULTIVIT-MIN/LUTEIN (CENTRUM SILVER ORAL) Take 1 Tab by mouth daily. (more content not included)... Normal Provider Locations CARE PLANon 01-09-2024 Supervisor Forming And Tempering Authentication Interface Message Text No wound progression. Normal [facility] MEDICAL STAFFon 01-09-2024 Supervisor Forming And Tempering Authentication Interface Message Text [facility] Patient Name: Hanna Nelson : 1940 AGE: [age] year old GENDER: Female Chief Complaint/Reason for Visit Hanna Nelson is a 81 year old female who presents today for wound care of chronic wound on the bottom of the right foot. Nothing new. Assessment/Dermatologic Exam/Plan Assessment -Right lower extremity ulceration down to subcutaneous tissue (Daniels grade 2) -Charcot foot deformity right foot -Type 2 diabetes mellitus with peripheral neuropathy -Abrasion right foot Plan -Patient was seen, evaluated, and treated today. -No signs of infection today. Monitor off antibiotics -She still waiting to see when diabetic shoes will be ready for pickup. -Continue with daily local wound care to the area as directed -Any signs of infection before the next visit go to the emergency room -Has been called for several weeks traveling out [place] the [place]. Wounds are stable. -Debridement. Continue as current. Wound location: Right plantar foot and right 3rd toe Cleanse with: saline/wound cleanser Apply to wound: collagen powder, alginate Ag Secure with: bordered foam Change Dressing: M-W-F Wear diabetic shoe insert with additional C-felt padding whenever walking. Return: 2 weeks Excisional Debridement Procedure Note Site of debridement: Right plantar foot wound Time out performed prior to treatment. Indication: Removal of nonviable tissue, fibrin, and exudates/slough Anesthesia: topical lidocaine per orders when needed for pain Procedure: Excisional debridement was done using a scalpel and/or curette to remove the nonviable tissue and/or slough/exudates and fibrin after patient placed in a comfortable position. Nonexcisional debridement also done using 4x4 gauze and/or irrigation and/or cotton tip applicator. Level of Debridement: Subcutaneous Total area debrided (sqcm): 0.24 Response to procedure: satisfactory Complications: None. Blood loss was minimal and bleeding was controlled with direct pressure. Post debridement measurements done by RN and reviewed by myself Wound Data: Wound Right Foot Plantar (Active) Dressing Status / Change Moist with drainage 01/09/24 1400 Wound Bed Appearance [place] 01/09/24 1400 Drainage Amount Moderate 01/09/24 1400 Drainage Appearance Serosanguineous 01/09/24 1400 Odor None 01/09/24 1400 Wound cleanser Normal saline 01/09/24 1400 Specific Procedures Other (Comment) 07/25/23 1331 Advanced Wound Intervention Photos 01/09/24 1400 Wound length (cm) 0.3 cm 01/09/24 1419 Wound width (cm) 0.8 cm 01/09/24 1419 Wound depth (cm) 0.3 cm 01/09/24 1419 Wound Surface Area (length x width) 0.24 01/09/24 1419 Undermining / Tunneling Yes 11/14/23 1300 Periwound (surrounding) tissue Macerated;Calloused 01/09/24 1400 Primary Dressing Collagens;Alginate 01/09/24 1419 Secondary Dressing Foam Dressing-Silicone Boarder 01/09/24 1419 Patient's Problem List Patient Active Problem List Diagnosis Primary hypertension Type 2 diabetes mellitus treated with insulin (HC CODE) Arthritis Hypothyroidism due to acquired atrophy of thyroid Palpitation Hyponatremia Spinal stenosis of lumbar region with neurogenic claudication Paroxysmal atrial fibrillation (HC CODE) Postoperative ileus (HC CODE) Paraparesis (HC CODE) Ataxia Cellulitis Peripheral vascular disease (HC CODE) Cellulitis of right lower leg NAYELY, resolved Mixed hyperlipidemia Education regarding disease process, wound care, pressure relief and elevation discussed with patient today. Time spent with patient and patient care related issues in addition to coordination of patient's care with other physicians/agencies: Discharge Instructions were given to patient, significant other, caregiver, or DPOHC. Follow-up Wound Right Foot Plantar (Active) Dressing Status / Change Moist with drainage 12/19/23 1200 Wound Bed Appearance [place] 12/19/23 1200 Drainage Amount Moderate 12/19/23 1200 Drainage Appearance Serosanguineous 12/19/23 1200 Odor None 12/19/23 1200 Wound cleanser Normal saline 12/19/23 1200 Specific Procedures Other (Comment) 07/25/23 1331 Advanced Wound Intervention Photos 12/12/23 1400 Wound length (cm) 0.2 cm 12/19/23 1257 Wound width (cm) 0.7 cm 12/19/23 1257 Wound depth (cm) 0.25 cm 12/19/23 1257 Wound Surface Area (length x width) 0.14 12/19/23 1257 Undermining / Tunneling Yes 11/14/23 1300 Periwound (surrounding) tissue Calloused;Macerated 12/19/23 1200 Primary Dressing Collagens;Alginate;Antimicr obial 12/19/23 1257 Secondary Dressing Foam Dressing-Silicone Boarder 12/19/23 1257 Wound Right Toe(s) 3rd Diabetic ulcer (neuropathic) (Active) Dressing Status / Change Moist with medicated soaks 12/19/23 1200 Wound Bed Appearance [place] 12/19/23 1200 Drainage Amount Moderate 12/19/23 1200 Drainage Appearance Yellow 12/19/23 1200 Odor None 12/19/23 1200 W (more content not included)... Normal [facility] CARE PLANon 12-19-2023 Supervisor [employer]ing [employer] Tempering Authentication Interface Message Text Progressing. Normal [facility] MEDICAL STAFFon 12-19-2023 Supervisor Forming And Tempering Authentication Interface Message Text [facility] 12/19/2023 Patient Name: Hanna Nelson : 1940 AGE: [age] year old GENDER: Female Chief Complaint/Reason for Visit Hanna Nelson is a 81 year old female who presents today for wound care of chronic wound on the bottom of the right foot. Nothing new. Assessment/Dermatologic Exam/Plan Assessment -Right lower extremity ulceration down to subcutaneous tissue (Daniels grade 2) -Charcot foot deformity right foot -Type 2 diabetes mellitus with peripheral neuropathy -Abrasion right foot Plan -Patient was seen, evaluated, and treated today. -No signs of infection today. Monitor off antibiotics -She still waiting to see when diabetic shoes will be ready for pickup. -Continue with daily local wound care to the area as directed -Patient going to [place] for 10 days. She will be gone for the next couple of weeks -Any signs of infection before the next visit go to the emergency room -Follow-up 3 weeks for recheck Patient's Problem List Patient Active Problem List Diagnosis Primary hypertension Type 2 diabetes mellitus treated with insulin (HC CODE) Arthritis Hypothyroidism due to acquired atrophy of thyroid Palpitation Hyponatremia Spinal stenosis of lumbar region with neurogenic claudication Paroxysmal atrial fibrillation (HC CODE) Postoperative ileus (HC CODE) Paraparesis (HC CODE) Ataxia Cellulitis Peripheral vascular disease (HC CODE) Cellulitis of right lower leg NAYELY, resolved Mixed hyperlipidemia Education regarding disease process, wound care, pressure relief and elevation discussed with patient today. Time spent with patient and patient care related issues in addition to coordination of patient's care with other physicians/agencies: Discharge Instructions were given to patient, significant other, caregiver, or DPOHC. Follow-up Wound Right Foot Plantar (Active) Dressing Status / Change Moist with drainage 12/19/23 1200 Wound Bed Appearance [place] 12/19/23 1200 Drainage Amount Moderate 12/19/23 1200 Drainage Appearance Serosanguineous 12/19/23 1200 Odor None 12/19/23 1200 Wound cleanser Normal saline 12/19/23 1200 Specific Procedures Other (Comment) 07/25/23 1331 Advanced Wound Intervention Photos 12/12/23 1400 Wound length (cm) 0.2 cm 12/19/23 1257 Wound width (cm) 0.7 cm 12/19/23 1257 Wound depth (cm) 0.25 cm 12/19/23 1257 Wound Surface Area (length x width) 0.14 12/19/23 1257 Undermining / Tunneling Yes 11/14/23 1300 Periwound (surrounding) tissue Calloused;Macerated 12/19/23 1200 Primary Dressing Collagens;Alginate;Antimicr obial 12/19/23 1257 Secondary Dressing Foam Dressing-Silicone Boarder 12/19/23 1257 Wound Right Toe(s) 3rd Diabetic ulcer (neuropathic) (Active) Dressing Status / Change Moist with medicated soaks 12/19/23 1200 Wound Bed Appearance [place] 12/19/23 1200 Drainage Amount Moderate 12/19/23 1200 Drainage Appearance Yellow 12/19/23 1200 Odor None 12/19/23 1200 Wound cleanser Normal saline 12/19/23 1200 Advanced Wound Intervention Photos 12/12/23 1400 Wound length (cm) 0.2 cm 12/19/23 1257 Wound width (cm) 0.2 cm 12/19/23 1257 Wound depth (cm) 0.1 cm 12/19/23 1257 Wound Surface Area (length x width) 0.04 12/19/23 1257 Periwound (surrounding) tissue Macerated 12/19/23 1200 Primary Dressing Collagens;Alginate;Antimicr obial 12/19/23 1257 Secondary Dressing Foam Dressing-Silicone Boarder 12/19/23 1257 Objective Vitals Signs: Visit Vitals BP 165/70 Pulse 72 Temp 97.9 F (36.6 C) Resp 16 OB Status Postmenopausal Smoking Status Former General Exam GENERAL: The patient is in no acute distress. RESP: Nonlabored breathing. No distress. Normal respirations. ABD: benign EXTREMITIES: Edema noted to the right lower extremity increased improved to previous. No erythema today. No crepitus fluctuance drainage malodor or probe to bone. Medications and Allergies No outpatient medications have been marked as taking for the 12/19/23 encounter (Hospital Encounter) with [facility] 1. Allergies Allergen Reactions Tape 1"X5yd [Adhesive Tape] Rash Redness. Avoids. Prefers paper tape Labs: WBC COUNT Date Value Ref Range Status 09/12/2023 8.1 3.5 - 10.9 K/uL Final WBC Count Date Value Ref Range Status 11/12/2023 5.8 3.5 - 10.9 K/uL Final HEMOGLOBIN Date Value Ref Range Status 09/12/2023 12.2 11.2 - 15.7 G/DL Final Hemoglobin Date Value Ref Range Status 11/12/2023 10.6 11.2 - 15.7 g/dL Final HEMATOCRIT Date Value Ref Range Status 09/12/2023 36.8 34.0 - 49.0 % Final Hematocrit Date Value Ref Range Status 11/12/2023 32.0 34.0 - 49.0 % Final PLATELET COUNT Date Value Ref Range Status 09/12/2023 268 140 - 400 K/uL Final Platelet Count Date Value Ref Range Status 11/12/2023 191 140 - 400 K/uL Final SODIUM Date Value Ref Range Status 09/12/2023 138 135 - 148 MEQ/L Final 10/21/2020 13 (more content not included)... Normal [facility] PROGRESS NOTESon 12-16-2023 Supervisor [employer]ing [employer]pering Authentication Interface Message Text ASSESSMENT ICD-10-CM ICD-9-CM 1. Essential hypertension I10 401.9 2. Other specified hypothyroidism E03.8 244.8 levothyroxine (SYNTHROID) 112 mcg tablet REFLEX TSH 3. Type 2 diabetes mellitus without complication, without long-term current use of insulin (HC CODE) E11.9 250.00 HEMOGLOBIN A1C W/ EST AVG GLUCOSE 4. Hyperlipidemia, unspecified hyperlipidemia type E78.5 272.4 CBC WITH DIFFERENTIAL COMPREHENSIVE METABOLIC PANEL LIPID PANEL (CORONARY RISK) MEDICAL DECISION MAKING 1. DM- Stable, continue current regimen. Due to recurrent yeast infections Diflucan prescribed. Trulicity continued 1.5mg with more routine dosing expect improvement 2. HTN- Stable, continue current regimen. 3. HLD- Stable, continue current regimen. 4. Afib- Stable, continue current regimen. 5. Hypothyroidism-continue 112mcg daily. Check labs prior to next visit. 6. PVD- continue to follow up with wound care for evaluation and monitoring. 7. 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 as calculated from the following: Height as of this encounter: 1.778 m (5' 10"). Weight as of this encounter: 95.9 kg (211 lb 6.4 oz).. This was discussed with patient. The BMI is noted to be: overweight, BMI management plan is: POC weight counseling and POC exercise counseling. Electronically signed by: Lisy Pace MD, 12/16/2023 1:02 PM The electronic medical record was reviewed and updated as indicated via the Adolfo as Reviewed time-stamps. SUBJECTIVE: CHIEF COMPLAINT No chief complaint on file. NURSING NOTES: There are no exam notes on file for this visit. HISTORY OF PRESENT ILLNESS: Hanna Nelson is a 83 year old female 1. DM with ulcer- taking medications as prescribed except unable to get Trulicity reliably. Continues to go to wound care. Jardiance is causing repeated vaginal infections. 2. HTN- taking medications as prescribed. 3. HLD- taking medications as prescribed. 4. Afib- taking medications as prescribed. 5. Hypothyroidism- taking levothyroxine as prescribed. 6. Right knee pain- gait imbalance. Also having right knee pain REVIEW OF SYSTEMS: Review of systems negative except for as stated in HPI. Past Medical History: Diagnosis Date Arthritis Generalized Back pain Charcot's arthropathy 2016 Right Foot Ulcer COVID-19 07/26/2020 Diabetes DX- 1996 Type 2- On Metformin Fall 06/30/2017 Laceration to Scalp Hypercholesteremia On Lipitor Hypothyroid On Levothyroxine Irregular heart beat 07/31/2017 1 episode-ST done results negative Neurogenic claudication due to lumbar spinal stenosis October 2017 Peripheral neuropathy On Gabapentin Peripheral vascular disease (HC CODE) 2010 Unspecified essential hypertension On Amlodipine, Lisinopril Social History Tobacco Use Smoking status: Former Packs/day: 0.50 Years: 7.00 Additional pack years: 0.00 Total pack years: 3.50 Types: Cigarettes Quit date: 08/12/1964 Years since quittin.3 Smokeless tobacco: Never Vaping Use Vaping Use: Never used Substance Use Topics Alcohol use: Yes Alcohol/week: 1.0 standard drink of alcohol Types: 1 Cans of beer per week Comment: less than monthly Drug use: No OBJECTIVE: BP 130/64 SpO2 97% Physical Exam Constitutional: Appearance: She is well-developed. HENT: Head: Normocephalic and atraumatic. Pulmonary: Effort: Pulmonary effort is normal. Neurological: Mental Status: She is alert and oriented to person, place, and time. Normal Provider [facility] CARE PLANon 12-12-2023 Supervisor Forming [employer] Tempering Authentication Interface Message Text Progressing. Normal [facility] MEDICAL STAFFon 12-12-2023 Supervisor Forming And Tempering Authentication Interface Message Text [facility] Wound Care Center 12/12/2023 Patient Name: Hanna Nelson : 1940 AGE: [age] year old GENDER: Female Chief Complaint/Reason for Visit Hanna Nelson is a 81 year old female who presents today for wound care of chronic wound on the bottom of the right foot. New area to the right third toe. Patient did not know about this. Just saw today when her shoes and socks were removed. Assessment/Dermatologic Exam/Plan Assessment -Right lower extremity ulceration down to subcutaneous tissue (Daniels grade 2) -Charcot foot deformity right foot -Type 2 diabetes mellitus with peripheral neuropathy -Abrasion right foot Plan -Patient was seen, evaluated, and treated today. -No signs of infection today. Monitor off antibiotics -New wound to the dorsal aspect third toe right foot. No signs of infection. -She still waiting to see when diabetic shoes will be ready for pickup. -Continue with daily local wound care to the area as directed -Any signs of infection before the next visit go to the emergency room -Follow-up 1 weeks for recheck Patient's Problem List Patient Active Problem List Diagnosis Primary hypertension Type 2 diabetes mellitus treated with insulin (HC CODE) Arthritis Hypothyroidism due to acquired atrophy of thyroid Palpitation Hyponatremia Spinal stenosis of lumbar region with neurogenic claudication Paroxysmal atrial fibrillation (HC CODE) Postoperative ileus (HC CODE) Paraparesis (HC CODE) Ataxia Cellulitis Peripheral vascular disease (HC CODE) Cellulitis of right lower leg NAYELY, resolved Mixed hyperlipidemia Education regarding disease process, wound care, pressure relief and elevation discussed with patient today. Time spent with patient and patient care related issues in addition to coordination of patient's care with other physicians/agencies: Discharge Instructions were given to patient, significant other, caregiver, or DPOHC. Follow-up Wound Right Foot Plantar (Active) Dressing Status / Change Moist with drainage 12/12/23 1400 Wound Bed Appearance [place] 12/12/23 1400 Drainage Amount Moderate 12/12/23 1400 Drainage Appearance Serous 12/12/23 1400 Odor None 11/14/23 1300 Wound cleanser Body wash / periwash 12/12/23 1400 Specific Procedures Other (Comment) 07/25/23 1331 Advanced Wound Intervention Photos 12/12/23 1400 Wound length (cm) 0.2 cm 12/12/23 1500 Wound width (cm) 0.8 cm 12/12/23 1500 Wound depth (cm) 0.1 cm 12/12/23 1500 Wound Surface Area (length x width) 0.16 12/12/23 1500 Undermining / Tunneling Yes 11/14/23 1300 Periwound (surrounding) tissue Calloused 12/12/23 1400 Primary Dressing Collagens;Alginate;Antimicr obial 12/12/23 1500 Secondary Dressing Foam Dressing-Silicone Boarder 12/12/23 1500 Wound Right Toe(s) 3rd Diabetic ulcer (neuropathic) (Active) Dressing Status / Change Open to air 12/12/23 1400 Wound Bed Appearance [place] 12/12/23 1400 Drainage Amount Small 12/12/23 1400 Drainage Appearance Serous 12/12/23 1400 Wound cleanser Body wash / periwash 12/12/23 1400 Advanced Wound Intervention Photos 12/12/23 1400 Wound length (cm) 0.5 cm 12/12/23 1500 Wound width (cm) 0.6 cm 12/12/23 1500 Wound depth (cm) 0.1 cm 12/12/23 1500 Wound Surface Area (length x width) 0.3 12/12/23 1500 Primary Dressing Collagens;Alginate;Antimicr obial 12/12/23 1500 Secondary Dressing Foam Dressing-Silicone Boarder 12/12/23 1500 Objective Vitals Signs: Visit Vitals BP 147/67 Pulse 76 Temp 97.3 F (36.3 C) Resp 16 OB Status Postmenopausal Smoking Status Former General Exam GENERAL: The patient is in no acute distress. RESP: Nonlabored breathing. No distress. Normal respirations. ABD: benign EXTREMITIES: Edema noted to the right lower extremity increased improved to previous. No erythema today. No crepitus fluctuance drainage malodor or probe to bone. Medications and Allergies No outpatient medications have been marked as taking for the 12/12/23 encounter (Hospital Encounter) with [facility] WOUND CARE ROOM 1. Allergies Allergen Reactions Tape 1"X5yd [Adhesive Tape] Rash Redness. Avoids. Prefers paper tape Labs: WBC COUNT Date Value Ref Range Status 09/12/2023 8.1 3.5 - 10.9 K/uL Final WBC Count Date Value Ref Range Status 11/12/2023 5.8 3.5 - 10.9 K/uL Final HEMOGLOBIN Date Value Ref Range Status 09/12/2023 12.2 11.2 - 15.7 G/DL Final Hemoglobin Date Value Ref Range Status 11/12/2023 10.6 11.2 - 15.7 g/dL Final HEMATOCRIT Date Value Ref Range Status 09/12/2023 36.8 34.0 - 49.0 % Final Hematocrit Date Value Ref Range Status 11/12/2023 32.0 34.0 - 49.0 % Final PLATELET COUNT Date Value Ref Range Status 09/12/2023 268 140 - 400 K/uL Final Platelet Count Date Value Ref Range Status 11/12/2023 191 140 - 400 K/uL Final SODIUM Date Value Ref Range Status 09/12/2023 138 135 - 148 MEQ/L Final 10/21/2020 135 135 (more content not included)... Normal [facility] NURSING NOTEon 12-02-2023 Supervisor [employer] Authentication Interface Message Text Patient here for right shoulder pain. Inpatient for cellulitis right lower leg over weekend. Normal Provider Locations PROGRESS NOTESon 12-02-2023 Supervisor [employer]ing [employer]pering Authentication Interface Message Text ASSESSMENT ICD-10-CM ICD-9-CM 1. Subacromial bursitis of right shoulder joint M75.51 726.19 triamcinolone acetonide 40mg/ml (KENALOG-40) injection suspension 40 mg JOINT INJECTION, SHOULDER, HIP,KNEE MEDICAL DECISION MAKING 1. Subacromial bursitis of right shoulder-after discussion with patient and review of her x-rays we elected to proceed with a corticosteroid injection of her subacromial bursa. Area prepped with alcohol swabs x 3. Then a mixture of 1% lidocaine and 40 mg of Kenalog was administered via posterior approach using a 22 gauge needle and 3 cc syringe. Patient tolerated well. If symptoms fail to improve consider physical therapy referral or orthopedic referral Weight management and counseling: Estimated body mass index is 30.16 kg/m? as calculated from the following: Height as of this encounter: 1.778 m (5' 10"). Weight as of this encounter: 95.3 kg (210 lb 3.2 oz).. This was discussed with patient. The BMI is noted to be: overweight, BMI management plan is: POC weight counseling and POC exercise counseling. Electronically signed by: Lisy Pace MD, 12/02/2023 8:55 AM The electronic medical record was reviewed and updated as indicated via the Adolfo as Reviewed time-stamps. SUBJECTIVE: CHIEF COMPLAINT Chief Complaint Patient presents with Shoulder Pain NURSING NOTES: Nursing Notes: Magnolia Murguia LPN 12/02/23 0836 Signed Patient here for right shoulder pain. Inpatient for cellulitis right lower leg over . HISTORY OF PRESENT ILLNESS: Hanna Nelson is a 83 year old female Right shoulder pain- Xrays demonstrate mild/mod arthritis. Here to discuss corticosteroid injection for pain relief. REVIEW OF SYSTEMS: Review of systems negative except for as stated in HPI. Past Medical History: Diagnosis Date Arthritis Generalized Back pain Charcot's arthropathy 2016 Right Foot Ulcer COVID-19 07/26/2020 Diabetes DX- 1997 Type 2- On Metformin Fall 06/30/2017 Laceration to Scalp Hypercholesteremia On Lipitor Hypothyroid On Levothyroxine Irregular heart beat 07/31/2017 1 episode-ST done results negative Neurogenic claudication due to lumbar spinal stenosis October 2017 Peripheral neuropathy On Gabapentin Peripheral vascular disease (HC CODE) 2010 Unspecified essential hypertension On Amlodipine, Lisinopril Social History Tobacco Use Smoking status: Former Packs/day: 0.50 Years: 7.00 Additional pack years: 0.00 Total pack years: 3.50 Types: Cigarettes Quit date: 08/12/1964 Years since quittin.3 Smokeless tobacco: Never Vaping Use Vaping Use: Never used Substance Use Topics Alcohol use: Yes Alcohol/week: 1.0 standard drink of alcohol Types: 1 Cans of beer per week Comment: less than monthly Drug use: No OBJECTIVE: BP 122/72 SpO2 97% Physical Exam Constitutional: Appearance: She is well-developed. HENT: Head: Normocephalic and atraumatic. Nose: Nose normal. No mucosal edema or rhinorrhea. Mouth/Throat: Pharynx: Uvula midline. Eyes: Conjunctiva/sclera: Conjunctivae normal. Pupils: Pupils are equal, round, and reactive to light. Cardiovascular: Rate and Rhythm: Normal rate and regular rhythm. Heart sounds: Normal heart sounds. Pulmonary: Effort: Pulmonary effort is normal. Breath sounds: Normal breath sounds. No wheezing or rales. Abdominal: General: Bowel sounds are normal. Palpations: Abdomen is soft. Tenderness: There is no abdominal tenderness. Musculoskeletal: Right shoulder: Tenderness present. No bony tenderness or crepitus. Decreased range of motion. Cervical back: Normal range of motion and neck supple. Skin: General: Skin is warm and dry. Neurological: Mental Status: She is alert and oriented to person, place, and time. Deep Tendon Reflexes: Reflexes are normal and symmetric. Normal Provider Locations CARE [facility] 11-25-2023 Supervisor Forming And Tempering Authentication Interface Message Text Progressing. Normal [facility] MEDICAL STAFFon 11-25-2023 Supervisor Forming And Tempering Authentication Interface Message Text [facility] Wound Care Center 11/25/2023 Patient Name: Hanna Nelson : 1940 AGE: [age] year old GENDER: Female Chief Complaint/Reason for Visit Hanna Nelson is a 81 year old female who presents today for wound care of chronic wound on the bottom of the right foot. Redness and pain has resolved. She is finished antibiotics. No new concerns. Assessment/Dermatologic Exam/Plan Assessment -Right lower extremity ulceration down to subcutaneous tissue (Daniels grade 2) -Charcot foot deformity right foot -Type 2 diabetes mellitus with peripheral neuropathy -Abrasion right foot Plan -Patient was seen, evaluated, and treated today. -No signs of infection today. Monitor off antibiotics -She still waiting to see when diabetic shoes will be ready for pickup. -Continue with daily local wound care to the area as directed -Any signs of infection before the next visit go to the emergency room -Follow-up 2 weeks for recheck Patient's Problem List Patient Active Problem List Diagnosis Primary hypertension Type 2 diabetes mellitus treated with insulin (HC CODE) Arthritis Hypothyroidism due to acquired atrophy of thyroid Palpitation Hyponatremia Spinal stenosis of lumbar region with neurogenic claudication Paroxysmal atrial fibrillation (HC CODE) Postoperative ileus (HC CODE) Paraparesis (HC CODE) Ataxia Cellulitis Peripheral vascular disease (HC CODE) Cellulitis of right lower leg NAYELY, resolved Mixed hyperlipidemia Education regarding disease process, wound care, pressure relief and elevation discussed with patient today. Time spent with patient and patient care related issues in addition to coordination of patient's care with other physicians/agencies: Discharge Instructions were given to patient, significant other, caregiver, or DPOHC. Follow-up Wound Right Foot Plantar (Active) Dressing Status / Change Moist with drainage 11/25/23 1500 Wound Bed Appearance [place] 11/25/23 1500 Drainage Amount Small 11/25/23 1500 Drainage Appearance Serous 11/25/23 1500 Odor None 11/14/23 1300 Wound cleanser Normal saline 11/25/23 1500 Specific Procedures Other (Comment) 07/25/23 1331 Advanced Wound Intervention Photos 11/14/23 1300 Wound length (cm) 0.3 cm 11/25/23 1527 Wound width (cm) 0.9 cm 11/25/23 1527 Wound depth (cm) 0.15 cm 11/25/23 1527 Wound Surface Area (length x width) 0.27 11/25/23 1527 Undermining / Tunneling Yes 11/14/23 1300 Periwound (surrounding) tissue Macerated;Calloused;Rolled wound edges / epibole 11/14/23 1300 Primary Dressing Collagens;Alginate;Antimicr obial 11/25/23 1527 Secondary Dressing Foam Dressing-Silicone Boarder 11/25/23 1527 Objective Vitals Signs: Visit Vitals BP 141/65 Pulse 79 Temp 97.2 F (36.2 C) Resp 16 OB Status Postmenopausal Smoking Status Former General Exam GENERAL: The patient is in no acute distress. RESP: Nonlabored breathing. No distress. Normal respirations. ABD: benign EXTREMITIES: Edema noted to the right lower extremity increased improved to previous. No erythema today. No crepitus fluctuance drainage malodor or probe to bone. Medications and Allergies No outpatient medications have been marked as taking for the 11/25/23 encounter (Hospital Encounter) with [facility] WOUND CARE ROOM 2. Allergies Allergen Reactions Tape 1"X5yd [Adhesive Tape] Rash Redness. Avoids. Prefers paper tape Labs: WBC COUNT Date Value Ref Range Status 09/12/2023 8.1 3.5 - 10.9 K/uL Final WBC Count Date Value Ref Range Status 11/12/2023 5.8 3.5 - 10.9 K/uL Final HEMOGLOBIN Date Value Ref Range Status 09/12/2023 12.2 11.2 - 15.7 G/DL Final Hemoglobin Date Value Ref Range Status 11/12/2023 10.6 11.2 - 15.7 g/dL Final HEMATOCRIT Date Value Ref Range Status 09/12/2023 36.8 34.0 - 49.0 % Final Hematocrit Date Value Ref Range Status 11/12/2023 32.0 34.0 - 49.0 % Final PLATELET COUNT Date Value Ref Range Status 09/12/2023 268 140 - 400 K/uL Final Platelet Count Date Value Ref Range Status 11/12/2023 191 140 - 400 K/uL Final SODIUM Date Value Ref Range Status 09/12/2023 138 135 - 148 MEQ/L Final 10/21/2020 135 135 - 148 MEQ/L Sodium Date Value Ref Range Status 11/12/2023 141 135 - 148 mEq/L Final POTASSIUM Date Value Ref Range Status 09/12/2023 4.7 3.4 - 5.3 MEQ/L Final Potassium Date Value Ref Range Status 11/12/2023 4.0 3.4 - 5.3 mEq/L Final CHLORIDE Date Value Ref Range Status 09/12/2023 101 96 - 110 MEQ/L Final Chloride Date Value Ref Range Status 11/12/2023 106 96 - 110 mEq/L Final CARBON DIOXIDE Date Value Ref Range Status 09/12/2023 24 19 - 32 MEQ/L Final Carbon Dioxide Date Value Ref Range Status 11/12/2023 23 19 - 32 mEq/L Final GLUCOSE Date Value Ref Range Status 09/12/2023 186 70 - 99 MG/DL Final Comment: (NOTE) The [place] recommends the following guide (more content not included)... Normal [facility] Bacteria Bld Culton 11-15-19 24 Bacteria identified Cx Nom (Bld) SPECIMEN TYPE VENOUS Bacteria Bld Cult NO GROWTH 5 DAYS Normal [employer] Comment on above: Performed By: #### 6 00-7 #### MICHEL Colon ([id number]) [employer] ([id number]) [address] [place] [address] CARE PLANon 11-14-2023 Supervisor Forming [employer] Tempering Authentication Interface Message Text Wound larger. SQ debridement completed by CLIFF. Normal [facility] MEDICAL STAFFon 11-14-2023 Supervisor Forming And Tempering Authentication Interface Message Text [facility] Wound Care Center 11/14/2023 Patient Name: Hanna Nelson : 1940 AGE: [age] year old GENDER: Female Chief Complaint/Reason for Visit Hanna Nelson is a 81 year old female who presents today for wound care of chronic wound on the bottom of the right foot. She did have concern for infection to the right foot last week. She went to the emergency room on Saturday and she was admitted for IV antibiotics was for cellulitis on her foot. She denies any pain to the area today. She is taking oral antibiotics that she was given on discharge from the hospital. No constitutional symptoms. Assessment/Dermatologic Exam/Plan Assessment -Right lower extremity ulceration down to subcutaneous tissue (Daniels grade 2) -Charcot foot deformity right foot -Type 2 diabetes mellitus with peripheral neuropathy -Abrasion right foot Plan -Patient was seen, evaluated, and treated today. -No signs of infection today. 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 -Continue with daily local wound care to the area as directed -Any signs of infection before the next visit go to the emergency room -Wanted to see the patient in 1 week but she is going to be out of town so we will see her in 10 days Patient's Problem List Patient Active Problem List Diagnosis Primary hypertension Type 2 diabetes mellitus treated with insulin (HC CODE) Arthritis Hypothyroidism due to acquired atrophy of thyroid Palpitation Hyponatremia Spinal stenosis of lumbar region with neurogenic claudication Paroxysmal atrial fibrillation (HC CODE) Postoperative ileus (HC CODE) Paraparesis (HC CODE) Ataxia Cellulitis Peripheral vascular disease (HC CODE) Cellulitis of right lower leg NAYELY, resolved Mixed hyperlipidemia Education regarding disease process, wound care, pressure relief and elevation discussed with patient today. Time spent with patient and patient care related issues in addition to coordination of patient's care with other physicians/agencies: Discharge Instructions were given to patient, significant other, caregiver, or DPOHC. Follow-up Wound Right Foot Plantar (Active) Dressing Status / Change Moist with drainage 11/14/23 1300 Wound Bed Appearance Red 11/14/23 1300 Drainage Amount Large 11/14/23 1300 Drainage Appearance Bloody 11/14/23 1300 Odor None 11/14/23 1300 Wound cleanser Wound cleanser 11/14/23 1300 Specific Procedures Other (Comment) 07/25/23 1331 Advanced Wound Intervention Photos 11/14/23 1300 Wound length (cm) 1.4 cm 11/14/23 1400 Wound width (cm) 3.9 cm 11/14/23 1400 Wound depth (cm) 0.2 cm 11/14/23 1400 Wound Surface Area (length x width) 5.46 11/14/23 1400 Undermining / Tunneling Yes 11/14/23 1300 Periwound (surrounding) tissue Macerated;Calloused;Rolled wound edges / epibole 11/14/23 1300 Primary Dressing Collagens;Alginate;Antimicr obial 11/14/23 1400 Secondary Dressing Foam Dressing-Silicone Boarder 11/14/23 1400 Objective Vitals Signs: Visit Vitals BP 132/79 Pulse 71 Temp 96.3 F (35.7 C) Resp 16 OB Status Postmenopausal Smoking Status Former General Exam GENERAL: The patient is in no acute distress. RESP: Nonlabored breathing. No distress. Normal respirations. ABD: benign EXTREMITIES: Edema noted to the right lower extremity increased compared to previous. Minimal erythema still noted to the bottom of the foot. No crepitus fluctuance drainage malodor or probe to bone. Medications and Allergies No outpatient medications have been marked as taking for the 11/14/23 encounter (Hospital Encounter) with [facility] WOUND CARE ROOM 4. Allergies Allergen Reactions Tape 1"X5yd [Adhesive Tape] Rash Redness. Avoids. Prefers paper tape Labs: WBC COUNT Date Value Ref Range Status 09/12/2023 8.1 3.5 - 10.9 K/uL Final WBC Count Date Value Ref Range Status 11/12/2023 5.8 3.5 - 10.9 K/uL Final HEMOGLOBIN Date Value Ref Range Status 09/12/2023 12.2 11.2 - 15.7 G/DL Final Hemoglobin Date Value Ref Range Status 11/12/2023 10.6 11.2 - 15.7 g/dL Final HEMATOCRIT Date Value Ref Range Status 09/12/2023 36.8 34.0 - 49.0 % Final Hematocrit Date Value Ref Range Status 11/12/2023 32.0 34.0 - 49.0 % Final PLATELET COUNT Date Value Ref Range Status 09/12/2023 268 140 - 400 K/uL Final Platelet Count Date Value Ref Range Status 11/12/2023 191 140 - 400 K/uL Final SODIUM Date Value Ref Range Status 09/12/2023 138 135 - 148 MEQ/L Final 10/21/2020 135 135 - 148 MEQ/L Sodium Date Value Ref Range Status 11/12/2023 141 135 - 148 mEq/L Laila (more content not included)... Normal [facility] PROGRESS NOTESon 11-13-2023 Supervisor [employer] Authentication Interface Message Text Post-Discharge Call DAY 1 11/13/2023 Patient Name: Hanna Nelson : 1940 Reason for Admission: Cellulitis of right lower leg Discharge Date: 11/12/23 Discharged From: [facility], [facility] [id number] Discharge Disposition: D/C to Primary Residence (home or snf) Future Appointments Date Time Provider Department Center 11/14/2023 1:30 PM [facility] WOUND C[facility] ROOM 4 [facility] Center 12/16/2023 11:15 AM [facility] 01/10/2024 9:15 AM Sandi Hernandez DO [facility] 310 COVID-19 Plasma Screening Appointment Scheduling Information Appt Scheduling Info Appointment Scheduled?: Yes Appointment scheduled during TCM outreach?: No Patient refused to schedule follow up appointment?: Yes Comment:: Patient has appointment with wound clinic 11/14/2023, and an appointment with PCP 12/16/2023 that was previously scheduled, patient states that she will just follow up at scheduled appointment. Questions for PCP to Address Patient states nothing at this time Screening Questions Post Discharge Call Initiative How are you feeling today? : Good Do you feel your condition has improved since returning home?: Yes Are you receiving a visiting nurse with a home health agency?: No Do you have a family member or friend in the home who provides assistance when needed?: No (Patient states that she lives alone, but has family who check in on her.) Are you able to get around your home okay? : Yes Please provide additional info (enter DME in the home here): Front wheeled walker, Cane, Bedside commode, Elevated toilet seat, Grab bar, Lift chair, Blood glucose meter/supplies Are you able to access your discharge paperwork at this time?: Yes Do you have all the medications listed on your discharge instructions? : Yes Medication review complete?: Yes Are there any medications that have changed?: Yes Please provide additional info for any medication changes: START taking: cephalexin (KEFLEX) doxycycline (VIBRAMYCIN) STOP taking: dulaglutide 1.5 mg/0.5 mL Pen injector injection (TRULICITY) methocarbamoL 750 mg tablet (ROBAXIN) Physician notified of discrepancies with med review?: N/A Patient can explain how to take his/her medications: Yes Patient verbalizes understanding of discharge/self-care instructions: Yes Patient verbalizes understanding of dietary instructions: N/A Patient verbalizes understanding of physical activity instructions: N/A Did you attend your PCP follow-up appointment?: Appt is in the future (12/16/2023) Do you anticipate problems attending your upcoming PCP appointment?: No Teach back topics covered: Education, Other Additional teach back topics covered: Discussed importance of following instructions on discharge paperwork Now that you are home, what can we do to make sure that you continue to recover and avoid a need to return to the hospital?: patient states nothing at this time Is there anything else I can help you with today- I have the time: no Narrative Electronically signed by: Chikis Monahan RN, 11/13/2023 10:05 AM Normal Provider [facility] 11-12-2023 Supervisor [employer] Authentication Interface Message Text Problem: Skin Integrity - Impaired Goal: Decrease in wound size 11/12/2023 1512 by Gin Kay, RN Outcome: Completed 11/12/2023 1132 by Gin Kay, RN Outcome: Progressing Goal: Skin integrity intact 11/12/2023 1512 by Gin Kay RN Outcome: Completed 11/12/2023 1132 by Gin Kay RN Outcome: Progressing Problem: Falls - Risk of Goal: Absence of falls Description: Avoid the routine use of bedrails or physical restraints as a fall-prevention intervention. 11/12/2023 1512 by Gin Kay RN Outcome: Completed 11/12/2023 1132 by Gin Kay RN Outcome: Progressing Goal: Knowledge of fall prevention 11/12/2023 1512 by Gin Kay RN Outcome: Completed 11/12/2023 1132 by Gin Kay RN Outcome: Progressing Problem: Pain - Acute Goal: Communication of presence of pain Description: For patients who are pharmacologically paralyzed and unresponsive to pain via behavioral cues, behavioral pain scales should not be used. 11/12/2023 1512 by Gin Kay RN Outcome: Completed 11/12/2023 113 by Gin Kay RN Outcome: Progressing Goal: Control of acute pain Description: Pain management should include both nonpharmacologic and pharmacologic interventions. 11/12/2023 1512 by Gin Kay RN Outcome: Completed 11/12/2023 1132 by Gin Kay RN Outcome: Progressing Problem: Mobility - Impaired Goal: Able to ambulate independently 11/12/2023 1512 by Gin Kay RN Outcome: Completed 11/12/2023 1132 by Gin Kay RN Outcome: Progressing Goal: Knowledge of need for increased mobility 11/12/2023 1512 by Gin Kay RN Outcome: Completed 11/12/2023 1132 by Gin Kay RN Outcome: Progressing Problem: Admission - General, Adult Goal: Able to cope with hospitalization 11/12/2023 1512 by Gin Kay RN Outcome: Completed 11/12/2023 1132 by Gin Kay RN Outcome: Progressing Goal: Knowledge of infection control procedures 11/12/2023 1512 by Gin Kay RN Outcome: Completed 11/12/2023 1132 by Gin Kay RN Outcome: Progressing Goal: Participation in care planning 11/12/2023 1512 by Gin Kay RN Outcome: Completed 11/12/2023 1132 by Gin Kay RN Outcome: Progressing Problem: Discharge Planning Goal: Knowledge of diabetes self-management 11/12/2023 1512 by Gin Kay RN Outcome: Completed 11/12/2023 1132 by Gin Kay RN Outcome: Progressing Problem: Injury Risk, Abnormal Serum Glucose Level Goal: Glucose level within specified parameters 11/12/2023 1512 by Gin Kay RN Outcome: Completed 11/12/2023 1132 by Gin Kay RN Outcome: Progressing Normal [facility] Supervisor [employer] Authentication Interface Message Text Problem: Skin Integrity - Impaired Goal: Decrease in wound size Outcome: Progressing Goal: Skin integrity intact Outcome: Progressing Problem: Falls - Risk of Goal: Absence of falls Description: Avoid the routine use of bedrails or physical restraints as a fall-prevention intervention. Outcome: Progressing Goal: Knowledge of fall prevention Outcome: Progressing Problem: Pain - Acute Goal: Communication of presence of pain Description: For patients who are pharmacologically paralyzed and unresponsive to pain via behavioral cues, behavioral pain scales should not be used. Outcome: Progressing Goal: Control of acute pain Description: Pain management should include both nonpharmacologic and pharmacologic interventions. Outcome: Progressing Problem: Mobility - Impaired Goal: Able to ambulate independently Outcome: Progressing Goal: Knowledge of need for increased mobility Outcome: Progressing Problem: Admission - General, Adult Goal: Able to cope with hospitalization Outcome: Progressing Goal: Knowledge of infection control procedures Outcome: Progressing Goal: Participation in care planning Outcome: Progressing Problem: Discharge Planning Goal: Knowledge of diabetes self-management Outcome: Progressing Problem: Injury Risk, Abnormal Serum Glucose Level Goal: Glucose level within specified parameters Outcome: Progressing Normal [facility] Supervisor [employer] Authentication Interface Message Text Problem: Skin Integrity - Impaired Goal: Decrease in wound size Outcome: Progressing Problem: Falls - Risk of Goal: Absence of falls Description: Avoid the routine use of bedrails or physical restraints as a fall-prevention intervention. Outcome: Progressing Goal: Knowledge of fall prevention Outcome: Progressing Problem: Pain - Acute Goal: Communication of presence of pain Description: For patients who are pharmacologically paralyzed and unresponsive to pain via behavioral cues, behavioral pain scales should not be used. Outcome: Progressing Goal: Control of acute pain Description: Pain management should include both nonpharmacologic and pharmacologic interventions. Outcome: Progressing Problem: Mobility - Impaired Goal: Able to ambulate independently Outcome: Progressing Goal: Knowledge of need for increased mobility Outcome: Progressing Problem: Admission - General, Adult Goal: Able to cope with hospitalization Outcome: Progressing Goal: Knowledge of infection control procedures Outcome: Progressing Goal: Participation in care planning Outcome: Progressing Problem: Discharge Planning Goal: Knowledge of diabetes self-management Outcome: Progressing Normal [facility] COMPLETE BLOOD COUNTon 11-11 Erythrocyte distribution width (RBC) [Ratio] 13.5 % NINF - 15.0 % [facility] Hematocrit (Bld) [Volume fraction] 32.0 % Low 34.0 - 49.0 % [facility] Hemoglobin (Bld) [Mass/Vol] 10.6 g/dL Low 11.2 - 15.7 g/dL [facility] Interpretation and review of laboratory results Abnormal [facility] MCH (RBC) [Entitic mass] 31.1 pg 26.0 - 34.0 pg [facility] MCHC (RBC) [Mass/Vol] 33.1 g/dL 30.7 - 35.5 g/dL [facility] MCV (RBC) [Entitic vol] 93.8 fL 80.0 - 100.0 fL [facility] Platelet mean volume (Bld) [Entitic vol] 10.8 fL 7.2 - 11.7 fL [facility] Platelets (Bld) [#/Vol] 191 10*3/uL 140 - 400 K/uL [facility] RBC (Bld) [#/Vol] 3.41 10*6/uL Low [facility] Scan Result [facility] WBC corrected for nucl RBC Auto (Bld) [#/Vol] 5.8 K/uL 3.5 - 10.9 K/uL [facility] Erythrocyte distribution width (RBC) [Ratio] 13.5 % Normal <=15.0 [facility] Comment on above: Performed By: #### P [id number] #### [place] [address] Hematocrit (Bld) [Volume fraction] 32.0 % Low 34.0-49.0 [facility] Comment on above: Performed By: #### P [id number] #### [place] [address] Hemoglobin (Bld) [Mass/Vol] 10.6 g/dL Low 11.2-15.7 [facility] Comment on above: Performed By: #### P [id number] #### [place] [address] MCH (RBC) [Entitic mass] 31.1 pg Normal 26.0-34.0 [facility] Comment on above: Performed By: #### P [id number] #### [place] [address] MCHC (RBC) [Mass/Vol] 33.1 g/dL Normal 30.7-35.5 [facility] Comment on above: Performed By: #### P [id number] #### [place] [address] MCV (RBC) [Entitic vol] 93.8 fL Normal 80.0-100.0 [facility] Comment on above: Performed By: #### P [id number] #### [place] [address] MEAN PLATELET VOLUME (FL) BY AUTOMATED COUNT 10.8 fL Normal 7.2-11.7 [facility] Comment on above: Performed By: #### P [id number] #### [place] [address] PLATELETS (10*3/UL) BY AUTOMATED COUNT 191 K/uL Normal 140-400 [facility] Comment on above: Performed By: #### P [id number] #### [place] [address] RBC (Bld) [#/Vol] 3.41 10*6/uL Low 3.95-5.26 [facility] Comment on above: Performed By: #### P [id number] #### [place] [address] TO SCAN RESULT USE "SCAN" ICON Normal [facility] Comment on above: Performed By: #### P [id number] #### [place] [address] WBC (Bld) [#/Vol] 5.8 10*3/uL Normal 3.5-10.9 [facility] Comment on above: Performed By: #### P [id number] #### [place] [address] NURSING NOTEon 11-12-2023 Supervisor [employer] Authentication Interface Message Text Discussed discharge paperwork and when to take medications. Teach back and all questions answered. IV removed. Normal [facility] POC GLUCOSEon 11-12-2023 Glucose [Mass/Vol] 252 mg/dL High 70 - 99 mg/dL [facility] Comment on above: Use of this test in certain clinical conditions requiring intensive medical intervention/therapy may warrant additional consideration by provider. Test was performed by caregiver. Interpretation and review of laboratory results Abnormal [facility] Scan Result [facility] Glucose [Mass/Vol] 252 mg/dL High 70-99 [facility] Comment on above: Result Comment: Use of this test in certain clinical conditions requiring intensive medical intervention/therapy may warrant additional consideration by provider. Test was performed by caregiver. Performed By: #### P [id number] #### [place] [address] TO SCAN RESULT USE "SCAN" ICON Normal [facility] Comment on above: Performed By: #### P [id number] #### [place] [address] Glucose [Mass/Vol] 154 mg/dL High 70 - 99 mg/dL [facility] Comment on above: Use of this test in certain clinical conditions requiring intensive medical intervention/therapy may warrant additional consideration by provider. Test was performed by caregiver. Interpretation and review of laboratory results Abnormal [facility] Result [facility] Glucose [Mass/Vol] 154 mg/dL High 70-99 [facility] Comment on above: Result Comment: Use of this test in certain clinical conditions requiring intensive medical intervention/therapy may warrant additional consideration by provider. Test was performed by caregiver. Performed By: #### P [id number] #### [place] [address] TO SCAN RESULT USE "SCAN" ON Normal [facility] Comment on above: Performed By: #### P [id number] #### [place] [address] Glucose [Mass/Vol] 356 mg/dL High 70 - 99 mg/dL [facility] Comment on above: Use of this test in certain clinical conditions requiring intensive medical intervention/therapy may warrant additional consideration by provider. Test was performed by caregiver. Interpretation and review of laboratory results Abnormal [facility] Scan Result [facility] Glucose [Mass/Vol] 356 mg/dL High 70-99 [facility] Comment on above: Result Comment: Use of this test in certain clinical conditions requiring intensive medical intervention/therapy may warrant additional consideration by provider. Test was performed by caregiver. Performed By: #### P [id number] #### [place] [address] TO SCAN RESULT USE "SCAN" [facility] Comment on above: Performed By: #### P [id number] #### [place] [address] Glucose [Mass/Vol] 422 mg/dL High 70 - 99 mg/dL [facility] Comment on above: Use of this test in certain clinical conditions requiring intensive medical intervention/therapy may warrant additional consideration by provider. Test was performed by caregiver. Interpretation and review of laboratory results Abnormal [facility] Result [facility] Glucose [Mass/Vol] 422 mg/dL High 70-99 [facility] Comment on above: Result Comment: Use of this test in certain clinical conditions requiring intensive medical intervention/therapy may warrant additional consideration by provider. Test was performed by caregiver. Performed By: #### P [id number] #### [place] [address] TO SCAN RESULT USE "SCAN" ICON Normal [facility] Comment on above: Performed By: #### P [id number] #### [facility] [address] RENAL FUNCTION PANELon 11-11 Albumin [Mass/Vol] 3.7 g/dL 3.5 - 5.2 g/dL [facility] Anion gap [Moles/Vol] 12 mmol/L 5 - 15 Pre [facility] Calcium [Mass/Vol] 8.8 mg/dL 8.5 - 10. 5 mg/dL [facility] Chloride [Moles/Vol] 106 mmol/L [facility] CO2 [Moles/Vol] 23 mmol/L [facility] Creatinine [Mass/Vol] 1.0 mg/dL 0.5 - 1.2 mg/dL [facility] GFR/1.73 sq M.predicted MDRD (S/P/Bld) [Vol rate/Area] 56 mL/min/{1.73_m2} Low - PINF [facility] Glucose [Mass/Vol] 148 mg/dL High 70 - 99 mg/dL [facility] Interpretation and review of laboratory results Abnormal [facility] Phosphate [Mass/Vol] 3.5 mg/dL 2.1 - 4 .3 mg/dL [facility] Potassium [Moles/Vol] 4.0 mmol/L [facility] Sodium [Moles/Vol] 141 mmol/L [facility] Urea nitrogen [Mass/Vol] 32 mg/dL High 3 - 29 mg/dL [facility] Urea nitrogen/Creatinine [Mass ratio] 32 mg/mg High 7 - 25 [facility] Albumin [Mass/Vol] 3.7 g/dL Normal 3.5-5.2 [facility] Comment on above: Performed By: #### L [id number] ####[place] [phone] Anion gap [Moles/Vol] 12 mmol/L Normal -15 [facility] Comment on above: Performed By: #### L [id number] ####[place] [phone] Calcium [Mass/Vol] 8.8 mg/dL Normal 8.5-10.5 [facility] Comment on above: Performed By: #### L [id number] ####[place] [phone] Chloride [Moles/Vol] 106 mmol/L Normal 96-110 [facility] Comment on above: Performed By: #### L [id number] ####[place] [phone] CO2 [Moles/Vol] 23 mmol/L Normal 19-32 [facility] Comment on above: Performed By: #### L [id number] ####[place] [phone] Creatinine [Mass/Vol] 1.0 mg/dL Normal 0.5-1.2 [facility] Comment on above: Performed By: #### L [id number] ####[place] [phone] ESTIMATED GFR 56 mL/min/1.73m*2 Low >=60 [facility] Comment on above: Performed By: #### L [id number] ####[place] [phone] Glucose [Mass/Vol] 148 mg/dL High 70-99 [facility] Comment on above: Performed By: #### L [id number] ####[place] [phone] Phosphate [Mass/Vol] 3.5 mg/dL Normal 2.1-4.3 [facility] Comment on above: Performed By: #### L [id number] ####[place] [phone] Potassium [Moles/Vol] 4.0 mmol/L Normal 3.4-5.3 [facility] Comment on above: Performed By: #### L [id number] ####[place] [phone] Sodium [Moles/Vol] 141 mmol/L Normal 135-148 [facility] Comment on above: Performed By: #### L [id number] ####[place] [phone] Urea nitrogen [Mass/Vol] 32 mg/dL High 3-29 [facility] Comment on above: Performed By: #### L [id number] ####[place] [phone] Urea nitrogen/Creatinine [Mass ratio] 32 mg/mg High 7- [facility] Comment on above: Performed By: #### L [id number] ####[place] [phone] CARE PLANon 11-11-2023 Supervisor [employer] Authentication Interface Message Text Problem: Skin Integrity - Impaired Goal: Decrease in wound size Outcome: Progressing Goal: Skin integrity intact Outcome: Progressing Problem: Falls - Risk of Goal: Absence of falls Description: Avoid the routine use of bedrails or physical restraints as a fall-prevention intervention. Outcome: Progressing Goal: Knowledge of fall prevention Outcome: Progressing Problem: Pain - Acute Goal: Communication of presence of pain Description: For patients who are pharmacologically paralyzed and unresponsive to pain via behavioral cues, behavioral pain scales should not be used. Outcome: Progressing Goal: Control of acute pain Description: Pain management should include both nonpharmacologic and pharmacologic interventions. Outcome: Progressing Problem: Mobility - Impaired Goal: Able to ambulate independently Outcome: Progressing Goal: Knowledge of need for increased mobility Outcome: Progressing Problem: Admission - General, Adult Goal: Able to cope with hospitalization Outcome: Progressing Goal: Knowledge of infection control procedures Outcome: Progressing Goal: Participation in care planning Outcome: Progressing Problem: Discharge Planning Goal: Knowledge of diabetes self-management Outcome: Progressing Problem: Injury Risk, Abnormal Serum Glucose Level Goal: Glucose level within specified parameters Outcome: Progressing Normal [facility] COMPLETE BLOOD COUNT WITH DI FFERENTIALon 11-11-2023 Basophils (Bld) [#/Vol] 0.0 10*3/uL 0.0 - 0.3 K/uL [facility] Basophils/100 WBC (Bld) 0.5 % 0.0 - 2.0 % [facility] Eosinophils (Bld) [#/Vol] 0.4 10*3/uL 0.0 - 0.5 K/uL [facility] Eosinophils/100 WBC (Bld) 5.0 % 0.0 - 5.0 % [facility] Erythrocyte distribution width (RBC) [Ratio] 13.9 % NINF - 15.0 % [facility] Hematocrit (Bld) [Volume fraction] 29.5 % Low 34.0 - 49.0 % [facility] Hemoglobin (Bld) [Mass/Vol] 9.7 g/dL Low 11.2 - 15.7 g/dL [facility] Immature granulocytes (Bld) [#/Vol] 0.0 10*3/uL 0.0 - 0.1 K/uL [facility] Immature granulocytes/100 WBC (Bld) 0.5 % NINF - 1.0 % [facility] Interpretation and review of laboratory results Abnormal [facility] Lymphocytes (Bld) [#/Vol] 1.9 10*3/uL 0.9 - 4.1 K/uL [facility] Lymphocytes/100 WBC (Bld) 22.2 % 14.0 - 51.0 % [facility] MCH (RBC) [Entitic mass] 30.9 pg 26.0 - 34.0 pg [facility] MCHC (RBC) [Mass/Vol] 32.9 g/dL 30.7 - 35.5 g/dL [facility] MCV (RBC) [Entitic vol] 93.9 fL 80.0 - 100.0 fL [facility] Monocytes (Bld) [#/Vol] 1.1 10*3/uL High 0.2 - 1.0 K/uL [facility] Monocytes/100 WBC (Bld) 12.8 % High 4.0 - 12.0 % [facility] Neutrophils (Bld) [#/Vol] 5.2 10*3/uL 1.8 - 7.5 K/uL [facility] Neutrophils/100 WBC (Bld) 59.0 % 42.0 - 80.0 % [facility] Nucleated cells (Bld) [#/Vol] 0 NINF [facility] Platelet mean volume (Bld) [Entitic vol] 11.3 fL 7.2 - 11.7 fL [facility] Platelets (Bld) [#/Vol] 197 10*3/uL 140 - 400 K/uL [facility] RBC (Bld) [#/Vol] 3.14 10*6/uL Low [facility] Scan Result [facility] WBC corrected for nucl RBC Auto (Bld) [#/Vol] 8.8 K/uL 3.5 - 10.9 K/uL [facility] BASOPHILS ABSOLUTE COUNT (10*3/UL) BY AUTOMATED COUNT 0.0 K/uL Normal 0.0-0.3 [facility] Comment on above: Performed By: #### P [id number] #### [place] [address] BASOPHILS RELATIVE PERCENT BY AUTOMATED COUNT 0.5 % Normal 0.0-2.0 [facility] Comment on above: Performed By: #### P [id number] #### [place] [address] Eosinophils (Bld) [#/Vol] 0.4 10*3/uL Normal 0.0-0.5 [facility] Comment on above: Performed By: #### P [id number] #### [place] [address] EOSINOPHILS RELATIVE PERCENT BY AUTOMATED COUNT 5.0 % Normal 0.0-5.0 [facility] Comment on above: Performed By: #### P [id number] #### [place] [address] Erythrocyte distribution width (RBC) [Ratio] 13.9 % Normal <=15.0 [facility] Comment on above: Performed By: #### P [id number] #### [place] [address] Hematocrit (Bld) [Volume fraction] 29.5 % Low 34.0-49.0 [facility] Comment on above: Performed By: #### P [id number] #### [place] [address] Hemoglobin (Bld) [Mass/Vol] 9.7 g/dL Low 11.2-15.7 [facility] Comment on above: Performed By: #### P [id number] #### [place] [address] Immature granulocytes (Bld) [#/Vol] 0.0 10*3/uL Normal 0.0-0.1 [facility] Comment on above: Performed By: #### P [id number] #### [place] [address] Immature granulocytes/100 WBC (Bld) 0.5 % Normal <1.0 [facility] Comment on above: Performed By: #### P [id number] #### [place] [address] LYMPHOCYTES ABSOLUTE COUNT (10*3/UL) BY AUTOMATED COUNT 1.9 K/uL Normal 0.9-4.1 [facility] Comment on above: Performed By: #### P [id number] #### [place] [address] LYMPHOCYTES RELATIVE PERCENT BY AUTOMATED COUNT 22.2 % Normal 14.0-51.0 [facility] Comment on above: Performed By: #### P [id number] #### [place] [address] MCH (RBC) [Entitic mass] 30.9 pg Normal 26.0-34.0 [facility] Comment on above: Performed By: #### P [id number] #### [place] [address] MCHC (RBC) [Mass/Vol] 32.9 g/dL Normal 30.7-35.5 [facility] Comment on above: Performed By: #### P [id number] #### [place] [address] MCV (RBC) [Entitic vol] 93.9 fL Normal 80.0-100.0 [facility] Comment on above: Performed By: #### P [id number] #### [place] [address] MEAN PLATELET VOLUME (FL) BY AUTOMATED COUNT 11.3 fL Normal 7.2-11.7 [facility] Comment on above: Performed By: #### P [id number] #### [place] [address] MONOCYTES ABSOLUTE COUNT (10*3/UL) BY AUTOMATED COUNT 1.1 K/uL High 0.2-1.0 [facility] Comment on above: Performed By: #### P [id number] #### [place] [address] MONOCYTES RELATIVE PERCENT BY AUTOMATED COUNT 12.8 % High 4.0-12.0 [facility] Comment on above: Performed By: #### P [id number] #### [place] [address] NEUTROPHILS ABSOLUTE COUNT (10*3/UL) BY AUTOMATED COUNT 5.2 K/uL Normal 1.8-7.5 [facility] Comment on above: Performed By: #### P [id number] #### [place] [address] NEUTROPHILS RELATIVE PERCENT BY AUTOMATED COUNT 59.0 % Normal 42.0-80.0 [facility] Comment on above: Performed By: #### P [id number] #### [place] [address] NRBC (PER 100 WBCS) BY AUTOMATED COUNT 0 /100 WBCs Normal <=0 [facility] Comment on above: Performed By: #### P [id number] #### [place] [address] PLATELETS (10*3/UL) BY AUTOMATED COUNT 197 K/uL Normal 140-400 [facility] Comment on above: Performed By: #### P [id number] #### [place] [address] RBC (Bld) [#/Vol] 3.14 10*6/uL Low 3.95-5.26 [facility] Comment on above: Performed By: #### P [id number] #### [place] [address] TO SCAN RESULT USE "SCAN" ICON Normal [facility] Comment on above: Performed By: #### P [id number] #### [place] [address] WBC (Bld) [#/Vol] 8.8 10*3/uL Normal 3.5-10.9 [facility] Comment on above: Performed By: #### P [id number] #### [place] [address] COMPREHENSIVE METABOLIC PANE LOrdered By: Ede Curtis on 11-11-2023 Albumin [Mass/Vol] 3.4 g/dL Low 3.5 - 5.2 g/dL [facility] ALP [Catalytic activity/Vol] 55 U/L 23 - 144 U/L [facility] ALT [Catalytic activity/Vol] 16 U/L 0 - 60 U/L [facility] Amino beta guanidinopropionate Ql (P) 1.2 0.8 - 2.6 [facility] Anion gap [Moles/Vol] 9 mmol/L 5 - 15 Pre [facility] AST [Catalytic activity/Vol] 13 U/L 0 - 55 U/L [facility] Bilirubin [Mass/Vol] 0.3 mg/dL 0.0 - 1 .2 mg/dL [facility] Calcium [Mass/Vol] 8.9 mg/dL 8.5 - 10. 5 mg/dL [facility] Chloride [Moles/Vol] 106 mmol/L [facility] CO2 [Moles/Vol] 23 mmol/L [facility] Creatinine [Mass/Vol] 1.1 mg/dL 0.5 - 1.2 mg/dL [facility] GFR/1.73 sq M.predicted MDRD (S/P/Bld) [Vol rate/Area] 50 mL/min/{1.73_m2} Low - PINF [facility] Globulin (S) [Mass/Vol] 2.9 g/dL 1.9 - 3.6 g/dL [facility] Glucose [Mass/Vol] 202 mg/dL High 70 - 99 mg/dL [facility] Interpretation and review of laboratory results Abnormal [facility] Potassium [Moles/Vol] 4.4 mmol/L Pre [facility] Protein [Mass/Vol] 6.3 g/dL 6.0 - 8.3 g/dL [facility] Sodium [Moles/Vol] 138 mmol/L [facility] Urea nitrogen [Mass/Vol] 37 mg/dL High 3 - 29 mg/dL [facility] Urea nitrogen/Creatinine [Mass ratio] 34 mg/mg High 7 - 25 [facility] COMPREHENSIVE METABOLIC PANE David 11-11-2023 Albumin [Mass/Vol] 3.4 g/dL Low 3.5-5.2 [facility] Comment on above: Performed By: #### L [id number] #### [place] [id number] Albumin/Globulin [Mass ratio] 1.2 {ratio} Normal 0.8-2.6 [facility] Comment on above: Performed By: #### L [id number] #### [place] [address] ALP [Catalytic activity/Vol] 55 U/L Normal 23-144 [facility] Comment on above: Performed By: #### L [id number] #### [place] [address] ALT [Catalytic activity/Vol] 16 U/L Normal 0-60 [facility] Comment on above: Performed By: #### L [id number] #### [place] [address] Anion gap [Moles/Vol] 9 mmol/L Normal 5-15 [facility] Comment on above: Performed By: #### L [id number] #### [place] [address] AST [Catalytic activity/Vol] 13 U/L Normal 0-55 [facility] Comment on above: Performed By: #### L [id number] #### [place] [address] Bilirubin [Mass/Vol] 0.3 mg/dL Normal 0.0-1.2 [facility] Comment on above: Performed By: #### L [id number] #### [place] [id number] Calcium [Mass/Vol] 8.9 mg/dL Normal 8.5-10.5 [facility] Comment on above: Performed By: #### L [id number] #### [place] [id number] Chloride [Moles/Vol] 106 mmol/L Normal 96-110 [facility] Comment on above: Performed By: #### L [id number] #### [place] [id number] CO2 [Moles/Vol] 23 mmol/L Normal 19-32 [facility] Comment on above: Performed By: #### L [id number] #### [place] [id number] Creatinine [Mass/Vol] 1.1 mg/dL Normal 0.5-1.2 [facility] Comment on above: Performed By: #### L [id number] #### [place] [id number] ESTIMATED GFR 50 mL/min/1.73m*2 Low >=60 [facility] Comment on above: Performed By: #### L [id number] #### [place] [address] Globulin (S) [Mass/Vol] 2.9 g/dL Normal 1.9-3.6 [facility] Comment on above: Performed By: #### L [id number] #### [place] [address] Glucose [Mass/Vol] 202 mg/dL High 70-99 [facility] Comment on above: Performed By: #### L [id number] #### [place] [address] Potassium [Moles/Vol] 4.4 mmol/L Normal 3.4-5.3 [facility] Comment on above: Performed By: #### L [id number] #### [place] [address] Protein [Mass/Vol] 6.3 g/dL Normal 6.0-8.3 [facility] Comment on above: Performed By: #### L [id number] #### [place] [address] Sodium [Moles/Vol] 138 mmol/L Normal 135-148 [facility] Comment on above: Performed By: #### L [id number] #### [place] [address] Urea nitrogen [Mass/Vol] 37 mg/dL High 3-29 [facility] Comment on above: Performed By: #### L [id number] #### [place] [address] Urea nitrogen/Creatinine [Mass ratio] 34 mg/mg High 7-25 [facility] Comment on above: Performed By: #### L [id number] #### [place] [address] MAGNESIUM, SERUMon 4 Magnesium [Mass/Vol] 1.9 mg/dL 1.4 - 2 .5 mg/dL [facility] Magnesium [Mass/Vol] 1.9 mg/dL Normal 1.4-2.5 [facility] Comment on above: Performed By: #### L [id number] ####[place] [phone] No Panel Informationon 11-10 Interpretation and review of laboratory results Normal [facility] PHOSPHORUSon 11-11-2023 Phosphate [Mass/Vol] 3.1 mg/dL 2.1 - 4 .3 mg/dL [facility] Phosphate [Mass/Vol] 3.1 mg/dL Normal 2.1-4.3 [facility] Comment on above: Performed By: #### P [id number] #### [place] [address] POC GLUCOSEon 11-11-2023 Glucose [Mass/Vol] 282 mg/dL High 70 - 99 mg/dL [facility] Comment on above: Use of this test in certain clinical conditions requiring intensive medical intervention/therapy may warrant additional consideration by provider. Test was performed by caregiver. Interpretation and review of laboratory results Abnormal [facility] Scan Result [facility] Glucose [Mass/Vol] 282 mg/dL High 70-99 [facility] Comment on above: Result Comment: Use of this test in certain clinical conditions requiring intensive medical intervention/therapy may warrant additional consideration by provider. Test was performed by caregiver. Performed By: #### P [id number] #### [place] [address] TO SCAN RESULT USE "SCAN" ICON [facility] Comment on above: Performed By: #### P [id number] #### [place] [address] Glucose [Mass/Vol] 253 mg/dL High 70 - 99 mg/dL [facility] Comment on above: Use of this test in certain clinical conditions requiring intensive medical intervention/therapy may warrant additional consideration by provider. Test was performed by caregiver. Interpretation and review of laboratory results Abnormal [facility] Scan Result [facility] Glucose [Mass/Vol] 253 mg/dL High 70-99 [facility] Comment on above: Result Comment: Use of this test in certain clinical conditions requiring intensive medical intervention/therapy may warrant additional consideration by provider. Test was performed by caregiver. Performed By: #### P [id number] #### [place] [address] TO SCAN RESULT USE "SCAN" [facility] Comment on above: Performed By: #### P [id number] #### [place] [address] Glucose [Mass/Vol] 298 mg/dL High 70 - 99 mg/dL [facility] Comment on above: Use of this test in certain clinical conditions requiring intensive medical intervention/therapy may warrant additional consideration by provider. Test was performed by caregiver. Interpretation and review of laboratory results Abnormal [facility] Scan Result [facility] Glucose [Mass/Vol] 298 mg/dL High 70-99 [facility] Comment on above: Result Comment: Use of this test in certain clinical conditions requiring intensive medical intervention/therapy may warrant additional consideration by provider. Test was performed by caregiver. Performed By: #### P [id number] #### [place] [address] TO SCAN RESULT USE "SCAN" [facility] Comment on above: Performed By: #### P [id number] #### [place] [address] Glucose [Mass/Vol] 227 mg/dL High 70 - 99 mg/dL [facility] Comment on above: Testing not FDA appr leopoldo for use with patients in DKA or receiving intensive medical intervention/therapy. Test was performed by caregiver. Interpretation and review of laboratory results Abnormal [facility] Scan Result [facility] Glucose [Mass/Vol] 227 mg/dL High 70-99 [facility] Comment on above: Result Comment: Test ing not FDA approved for use with patients in DKA or receiving intensive medical intervention/therapy. Test was performed by caregiver. Performed By: #### P [id number] #### [place] [address] TO SCAN RESULT USE "SCAN" [facility] Comment on above: Performed By: #### P [id number] #### [place] [address] Glucose [Mass/Vol] 226 mg/dL High 70 - 99 mg/dL [facility] Comment on above: Testing not FDA appr leopoldo for use with patients in DKA or receiving intensive medical intervention/therapy. Test was performed by caregiver. Interpretation and review of laboratory results Abnormal [facility] Scan Result [facility] Glucose [Mass/Vol] 226 mg/dL High 70-99 [facility] Comment on above: Result Comment: Test ing not FDA approved for use with patients in DKA or receiving intensive medical intervention/therapy. Test was performed by caregiver. Performed By: #### P [id number] #### [place] [address] TO SCAN RESULT USE "SCAN" ICON Normal [facility] Comment on above: Performed By: #### P [id number] #### [place] [address] PROGRESS NOTESon 11-11-2023 Supervisor [employer]ation Interface Message Text Met with patient to discuss home health care. Patient declining home health, despite HCL explaining benefits of services and encouragement. Patient?s reason for declining: Stated is very independent. Patient instructed that if they change their mind to please let their cyanide case hardener, physician, or bedside nurse know and they can contact us to revisit them. Physician notified: N/A Notified via: N/A Discussion with MD: N/A Electronically signed by: Gayle Oswald, 11/11/2023 11:20 AM [facility] [employer] Interface Message Text Patient to be assessed by Communication Professor for potential home care needs. Liaison will then meet with patient/caregiver to discuss home care services. Liaison will confirm if patient/caregiver is agreeable to home care services and verify agency preference. Once the home care agency has accepted the referral, the agency will be added to patient's follow-up provider list. Electronically signed by: Gayle Oswald, 11/11/2023 8:15 AM [facility] ACTIVATED PARTIAL THROMBOPLA STIN TIMEon 11-10-2023 aPTT Coag (PPP) [Time] 22.8 s Low Pr [facility] Interpretation and review of laboratory results Abnormal [facility] aPTT Coag (Bld) [Time] 22.8 s Low 24.5-35.2 [facility] Comment on above: Performed By: #### P [id number] #### [place] [address] BASIC METABOLIC PANELon 03-3 Anion gap [Moles/Vol] 15 mmol/L 5 - 15 [facility] Calcium [Mass/Vol] 9.4 mg/dL 8.5 - 10. 5 mg/dL [facility] Chloride [Moles/Vol] 94 mmol/L Low [facility] CO2 [Moles/Vol] 24 mmol/L [facility] Creatinine [Mass/Vol] 1.5 mg/dL High 0.5 - 1.2 mg/dL [facility] GFR/1.73 sq M.predicted MDRD (S/P/Bld) [Vol rate/Area] 34 mL/min/{1.73_m2} Low - PINF [facility] Glucose [Mass/Vol] 430 mg/dL High 70 - 99 mg/dL [facility] Interpretation and review of laboratory results Abnormal [facility] Potassium [Moles/Vol] 4.5 mmol/L [facility] Sodium [Moles/Vol] 133 mmol/L Low [facility] Urea nitrogen [Mass/Vol] 34 mg/dL High 3 - 29 mg/dL [facility] Urea nitrogen/Creatinine [Mass ratio] 23 mg/mg 7 - 25 [facility] Anion gap [Moles/Vol] 15 mmol/L Normal 5-15 [facility] Comment on above: Performed By: #### L [id number] #### [place] [address] Calcium [Mass/Vol] 9.4 mg/dL Normal 8.5-10.5 [facility] Comment on above: Performed By: #### L [id number] #### [place] [address] Chloride [Moles/Vol] 94 mmol/L Low 96-110 [facility] Comment on above: Performed By: #### L [id number] #### [place] [address] CO2 [Moles/Vol] 24 mmol/L Normal 19-32 [facility] Comment on above: Performed By: #### L [id number] #### [place] [address] Creatinine [Mass/Vol] 1.5 mg/dL High 0.5-1.2 [facility] Comment on above: Performed By: #### L [id number] #### [place] [address] ESTIMATED GFR 34 mL/min/1.73m*2 Low >=60 [facility] Comment on above: Performed By: #### L [id number] #### [place] [address] Glucose [Mass/Vol] 430 mg/dL High 70-99 [facility] Comment on above: Performed By: #### L [id number] #### [place] [address] Potassium [Moles/Vol] 4.5 mmol/L Normal 3.4-5.3 [facility] Comment on above: Performed By: #### L [id number] #### [place] [address] Sodium [Moles/Vol] 133 mmol/L Low 135-148 [facility] Comment on above: Performed By: #### L [id number] #### [place] [address] Urea nitrogen [Mass/Vol] 34 mg/dL High 3-29 [facility] Comment on above: Performed By: #### L [id number] #### [place] [address] Urea nitrogen/Creatinine [Mass ratio] 23 mg/mg Normal 7-25 [facility] Comment on above: Performed By: #### L [id number] #### [place] [address] CARE PLANon 11-10-2023 Supervisor [employer] Authentication Interface Message Text Problem: Skin Integrity - Impaired Goal: Decrease in wound size Outcome: Progressing Goal: Skin integrity intact Outcome: Progressing Problem: Falls - Risk of Goal: Absence of falls Description: Avoid the routine use of bedrails or physical restraints as a fall-prevention intervention. Outcome: Progressing Goal: Knowledge of fall prevention Outcome: Progressing Problem: Pain - Acute Goal: Communication of presence of pain Description: For patients who are pharmacologically paralyzed and unresponsive to pain via behavioral cues, behavioral pain scales should not be used. Outcome: Progressing Goal: Control of acute pain Description: Pain management should include both nonpharmacologic and pharmacologic interventions. Outcome: Progressing Problem: Mobility - Impaired Goal: Able to ambulate independently Outcome: Progressing Problem: Mobility - Impaired Goal: Knowledge of need for increased mobility Outcome: Progressing Problem: Admission - General, Adult Goal: Able to cope with hospitalization Outcome: Progressing Goal: Knowledge of infection control procedures Outcome: Progressing Goal: Participation in care planning Outcome: Progressing Problem: Discharge Planning Goal: Knowledge of diabetes self-management Outcome: Progressing Problem: Injury Risk, Abnormal Serum Glucose Level Goal: Glucose level within specified parameters Outcome: Progressing Normal [facility] COMPLETE BLOOD COUNT WITH DI FFERENTIALon 11-10-2023 Basophils (Bld) [#/Vol] 0.0 10*3/uL 0.0 - 0.3 K/uL [facility] Basophils/100 WBC (Bld) 0.3 % 0.0 - 2.0 % [facility] Eosinophils (Bld) [#/Vol] 0.0 10*3/uL 0.0 - 0.5 K/uL [facility] Eosinophils/100 WBC (Bld) 0.4 % 0.0 - 5.0 % [facility] Erythrocyte distribution width (RBC) [Ratio] 13.7 % NINF - 15.0 % [facility] Hematocrit (Bld) [Volume fraction] 34.6 % 34.0 - 49.0 % [facility] Hemoglobin (Bld) [Mass/Vol] 11.7 g/dL 11.2 - 15.7 g/dL [facility] Immature granulocytes (Bld) [#/Vol] 0.0 10*3/uL 0.0 - 0.1 K/uL [facility] Immature granulocytes/100 WBC (Bld) 0.4 % NINF - 1.0 % [facility] Interpretation and review of laboratory results Abnormal [facility] Lymphocytes (Bld) [#/Vol] 1.1 10*3/uL 0.9 - 4.1 K/uL [facility] Lymphocytes/100 WBC (Bld) 11.3 % Low 14.0 - 51.0 % [facility] MCH (RBC) [Entitic mass] 31.5 pg 26.0 - 34.0 pg [facility] MCHC (RBC) [Mass/Vol] 33.8 g/dL 30.7 - 35.5 g/dL [facility] MCV (RBC) [Entitic vol] 93.3 fL 80.0 - 100.0 fL [facility] Monocytes (Bld) [#/Vol] 0.9 10*3/uL 0.2 - 1.0 K/uL [facility] Monocytes/100 WBC (Bld) 8.7 % 4.0 - 12.0 % [facility] Neutrophils (Bld) [#/Vol] 7.8 10*3/uL High 1.8 - 7.5 K/uL [facility] Neutrophils/100 WBC (Bld) 78.9 % 42.0 - 80.0 % [facility] Nucleated cells (Bld) [#/Vol] 0 NINF [facility] Platelet mean volume (Bld) [Entitic vol] 10.7 fL 7.2 - 11.7 fL [facility] Platelets (Bld) [#/Vol] 204 10*3/uL 140 - 400 K/uL [facility] RBC (Bld) [#/Vol] 3.71 10*6/uL Low [facility] Scan Result [facility] WBC corrected for nucl RBC Auto (Bld) [#/Vol] 9.9 K/uL 3.5 - 10.9 K/uL [facility] BASOPHILS ABSOLUTE COUNT (10*3/UL) BY AUTOMATED COUNT 0.0 K/uL Normal 0.0-0.3 [facility] Comment on above: Performed By: #### L [id number] #### [place] [address] BASOPHILS RELATIVE PERCENT BY AUTOMATED COUNT 0.3 % Normal 0.0-2.0 [facility] Comment on above: Performed By: #### L [id number] #### [place] [address] Eosinophils (Bld) [#/Vol] 0.0 10*3/uL Normal 0.0-0.5 [facility] Comment on above: Performed By: #### L [id number] #### [place] [address] EOSINOPHILS RELATIVE PERCENT BY AUTOMATED COUNT 0.4 % Normal 0.0-5.0 [facility] Comment on above: Performed By: #### L [id number] #### [place] [address] Erythrocyte distribution width (RBC) [Ratio] 13.7 % Normal <=15.0 [facility] Comment on above: Performed By: #### L [id number] #### [place] [address] Hematocrit (Bld) [Volume fraction] 34.6 % Normal 34.0-49.0 [facility] Comment on above: Performed By: #### L [id number] #### [place] [address] Hemoglobin (Bld) [Mass/Vol] 11.7 g/dL Normal 11.2-15.7 [facility] Comment on above: Performed By: #### L [id number] #### [place] [address] Immature granulocytes (Bld) [#/Vol] 0.0 10*3/uL Normal 0.0-0.1 [facility] Comment on above: Performed By: #### L [id number] #### [place] [address] Immature granulocytes/100 WBC (Bld) 0.4 % Normal <1.0 [facility] Comment on above: Performed By: #### L [id number] #### [place] [address] LYMPHOCYTES ABSOLUTE COUNT (10*3/UL) BY AUTOMATED COUNT 1.1 K/uL Normal 0.9-4.1 [facility] Comment on above: Performed By: #### L [id number] #### [place] [address] LYMPHOCYTES RELATIVE PERCENT BY AUTOMATED COUNT 11.3 % Low 14.0-51.0 [facility] Comment on above: Performed By: #### L [id number] #### [place] [address] MCH (RBC) [Entitic mass] 31.5 pg Normal 26.0-34.0 [facility] Comment on above: Performed By: #### L [id number] #### [place] [address] MCHC (RBC) [Mass/Vol] 33.8 g/dL Normal 30.7-35.5 [facility] Comment on above: Performed By: #### L [id number] #### [place] [address] MCV (RBC) [Entitic vol] 93.3 fL Normal 80.0-100.0 [facility] Comment on above: Performed By: #### L [id number] #### [place] [address] MEAN PLATELET VOLUME (FL) BY AUTOMATED COUNT 10.7 fL Normal 7.2-11.7 [facility] Comment on above: Performed By: #### L [id number] #### [place] [address] MONOCYTES ABSOLUTE COUNT (10*3/UL) BY AUTOMATED COUNT 0.9 K/uL Normal 0.2-1.0 [facility] Comment on above: Performed By: #### L [id number] #### [place] [address] MONOCYTES RELATIVE PERCENT BY AUTOMATED COUNT 8.7 % Normal 4.0-12.0 [facility] Comment on above: Performed By: #### L [id number] #### [place] [address] NEUTROPHILS ABSOLUTE COUNT (10*3/UL) BY AUTOMATED COUNT 7.8 K/uL High 1.8-7.5 [facility] Comment on above: Performed By: #### L [id number] #### [place] [address] NEUTROPHILS RELATIVE PERCENT BY AUTOMATED COUNT 78.9 % Normal 42.0-80.0 [facility] Comment on above: Performed By: #### L [id number] #### [place] [address] NRBC (PER 100 WBCS) BY AUTOMATED COUNT 0 /100 WBCs Normal <=0 [facility] Comment on above: Performed By: #### L [id number] #### [place] [address] PLATELETS (10*3/UL) BY AUTOMATED COUNT 204 K/uL Normal 140-400 [facility] Comment on above: Performed By: #### L [id number] #### [place] [address] RBC (Bld) [#/Vol] 3.71 10*6/uL Low 3.95-5.26 [facility] Comment on above: Performed By: #### L [id number] #### [place] [address] TO SCAN RESULT USE "SCAN" ICON Normal [facility] Comment on above: Performed By: #### L [id number] #### [place] [address] WBC (Bld) [#/Vol] 9.9 10*3/uL Normal 3.5-10.9 [facility] Comment on above: Performed By: #### L [id number] #### [place] [address] CULTURE, BLOODon 11-10-2023 Microscopic examination of blood, culture SDES: BLOOD CULTURE, BLOOD SREQ: VENOUS CULTURE COMPONENT 3419 CULTURE, BLOOD NOTE NO GROWTH 5 DAYS Normal [facility] Comment on above: Performed By: #### P [id number] #### [place] [address] Microscopic examination of blood, culture SDES: BLOOD CULTURE, BLOOD SREQ: VENOUS CULTURE COMPONENT 3419 CULTURE, BLOOD NOTE NO GROWTH 5 DAYS Normal [facility] Comment on above: Performed By: #### L [id number] ####[place] [phone] ED NOTESon 11-10-2023 [facility] Ed Note ED Note: Last filed note HNO ID: [id number] Author: Pinky Martinez RN Service: Emergency Medicine Author Type: Registered Nurse Filed: 11/10/23 6329 Note Text: Patient provided damp wash cloth per request, denies any other needs at this time. Call light within reach. Normal [facility] Ed Note ED Note: Last filed note HNO ID: [id number] Author: Pinky Martinez RN Service: Emergency Medicine Author Type: Registered Nurse Filed: 11/10/23 9563 Note Text: ED REPORT SUMMARY ED ARRIVAL COMPLAINT(S) Cellulitis ADMISSION DIAGNOSIS No admission diagnoses are documented for this encounter. ED Location: [place] [address] Private Visit: No Language: Burmese Admitting: Patient Class: Level of Care: Service: (ADMISSION DETAILS SHOWN ABOVE IF AVAILABLE) REVIEW OF SYSTEMS NEUROLOGICAL GCS: 15 (Modifier: Not applicable) Level of Consciousness: Orientedx3, Cooperative, Awake, Alert Stroke like symptoms?: No LUE Movement: Follows commands RUE Movement: Follows commands LLE Movement: Follows command RLE Movement: Follows command RASS: 0 Alert and calm PULMONARY Respiratory Pattern : Unlabored Work of Breathing: Normal effort Upper Airway Sounds: Clear CARDIAC Heart Sounds: Regular Peripheral Edema: None noted Edema(mm): None Radial Left: Normal Radial Right: Normal Additional Pulses: No ABDOMEN (GI) Abdomen Assessment: Round, Soft, Non-tender Bowel Sounds: Normal URINE () INTEGUMENTARY Skin: Warm, Dry, [place] Color, cont: Cap refill < 2 sec Turgor: Fair Conditions: (RLE warm, red, nontender) Kait Scale: ALLERGIES Tape 1"x5yd [adhesive tape] PMHx Hanna has a past medical history of Arthritis, Back pain, Charcot's arthropathy (2015), COVID-19 (07/26/2020), Diabetes (DX- 1996), Fall (06/30/2017), Hypercholesteremia, Hypothyroid, Irregular heart beat (07/31/2017), Neurogenic claudication due to lumbar spinal stenosis (October 2017), Peripheral neuropathy, Peripheral vascular disease (HC CODE) (2010), and Unspecified essential hypertension. ADLs DIET: No diet orders on file ACCUCHECK: Unknown FUNCTIONAL LEVEL: WEIGHT: 93 kg (205 lb) FALL SCORE: 8 CODE STATUS Prior ( None on file.) ISOLATION No active isolations RECENT VITALS HR 103 Temp: 98 F (36.7 C) MAP: (91 mmHg) Oxygen: Flow: Pain: 0/10 IV ACCESS 20g Right Antecubital IV patency confirmed within past hour?: Yes INFUSION(S) RUNNING ED MEDS Medications saline flush (has no administration in time range) cefTRIAXone (ROCEPHIN) 2 g in D5W 50 ml IVPB (PREMIX) (2 g Intravenous New Bag 11/10/23 1806) ABNORMAL RESULTS Abnormal Labs Reviewed BASIC METABOLIC PANEL - Abnormal; Notable for the following components: Result Value Sodium 133 (*) Chloride 94 (*) BUN 34 (*) Creatinine 1.5 (*) Glucose 430 (*) Estimated GFR 34 (*) All other components within normal limits ACTIVATED PARTIAL THROMBOPLASTIN TIME - Abnormal; Notable for the following components: APTT 22.8 (*) All other components within normal limits COMPLETE BLOOD COUNT WITH DIFFERENTIAL - Abnormal; Notable for the following components: RBC 3.71 (*) % Lymphocytes 11.3 (*) Absolute Neutrophils 7.8 (*) All other components within normal limits CONSULTS ORDERED (AT TIME OF FILING) None TO DO Scheduled Meds: cefTRIAXone (ROCEPHIN) IV Orderable, 2 g, Now COMMENTS: Data Validated/Updated: 11/10/2023 at 6:20 PM [facility] Ed Note ED Note: Last filed note HNO ID: [id number] Author: Pinky Martinez RN Service: Emergency Medicine Author Type: Registered Nurse Filed: 11/10/23 8295 Note Text: Patient provided cup of water, approved by Dr. Rubio. [facility] Ed Note ED Note: Last filed note HNO ID: [id number] Author: Pinky Martinez RN Service: Emergency Medicine Author Type: Registered Nurse Filed: 11/10/23 6562 Note Text: IV placement attempted, unsuccessful at this time. TL made aware. [facility] ED PROVIDER NOTESon 11-10-19 [facility] Ed Provider Note ED Provider Note: Jaz ast filed note HNO ID: [id number] Author: Norberto Rubio MD Service: ? Author Type: Physician Filed: 11/10/231815 Note Text: Triage Chief Complaint: Chief Complaint Patient presents with Cellulitis HPI: Hanna Nelson is a 83 year old female who presents with right leg redness and swelling. This began today. She has history of recurrent cellulitis and son states she required hospitalization for this in the past and subsequent ECF placement. Patient does live independently. She states for the last week she has had some flulike symptoms with low-grade fever and diarrhea although thought it was unrelated. She has been dealing with an ulcer to the plantar aspect of the foot and is diabetic. She denies any pain. She is anticoagulated with Eliquis. REVIEW OF SYSTEMS: Otherwise negative, please see HPI PAST MEDICAL HISTORY: Past Medical History: Diagnosis Date Arthritis Generalized Back pain Charcot's arthropathy 2016 Right Foot Ulcer COVID-19 07/26/2020 Diabetes DX- 1997 Type 2- On Metformin Fall 06/30/2017 Laceration to Scalp Hypercholesteremia On Lipitor Hypothyroid On Levothyroxine Irregular heart beat 07/31/2017 1 episode-ST done results negative Neurogenic claudication due to lumbar spinal stenosis October 2017 Peripheral neuropathy On Gabapentin Peripheral vascular disease (HC CODE) 2010 Unspecified essential hypertension On Amlodipine, Lisinopril FAMILY HISTORY: Family History Problem Relation Age of Onset Diabetes Father Heart Disease Father [place] Hypertension Father Cancer Father Prostate No Known Problems Mother No Known Problems Sister SOCIAL HISTORY: Social History Socioeconomic History Marital status: Spouse name: Not on file Number of children: Not on file Years of education: Not on file Highest education level: Not on file Occupational History Not on file Tobacco Use Smoking status: Former Packs/day: 0.50 Years: 7.00 Additional pack years: 0.00 Total pack years: 3.50 Types: Cigarettes Quit date: 08/12/1964 Years since quittin.2 Smokeless tobacco: Never Vaping Use Vaping Use: Never used Substance and Sexual Activity Alcohol use: Yes Alcohol/week: 1.0 standard drink of alcohol Types: 1 Cans of beer per week Comment: monthly Drug use: No Sexual activity: Not on file Other Topics Concern Not on file Social History Narrative Not on file Social Determinants of Health Financial Resource Strain: Not on file Food Insecurity: Not on file Transportation Needs: Not on file Physical Activity: Not on file Stress: Not on file Social Connections: Not on file Intimate Partner Violence: Not on file Housing Stability: Not on file SURGICAL HISTORY: Past Surgical History: Procedure Laterality Date CARDIAC STRESS TST,COMPLETE 08/01/2017 MVS- Irregular Heart Beat- Results Negative-EF>70% CAUDAL EPIDURAL BLOCK 09/02/2017 ECHO Historical 1987 [facility]- ? Why -Results Good EPIDURAL LUMBAR TRANSFORMINAL Left 03/25/2017 L3-L4 LAMINECTOMY DECOMPRESSION POSTERIOR 3 LEVEL N/A 10/22/2017 LAMINECTOMY DECOMPRESSION POSTERIOR 3 LEVEL performed by Adolfo Edwards MD at [facility] MAIN OR LIG/TRNSXJ FLP TUBE ABDL/VAG APPR UNI/BI Ligation or Transection of Fallopian Tubes, Unilat or Bilat LUMBAR TRANSFORAMINAL EPIDURAL 04/29/2017 L4-L5 Other Surgical History Left 01/24/2015 Left Foot Metatarsal Head Bone Biopsy per Dr Ann Vasquez @ [facility] Other Surgical History Right 10/17/2015 Irigation W/Sharp Excisional Debridement Right Foot. 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 per Dr Loaiza @ [facility] Other Surgical History 2009 Fractured Hip REMOVAL GALLBLADDER [facility] WOUND VAC APPLICATION/CHANGE N/A 10/22/2017 WOUND VAC APPLICATION/CHANGE performed by Adolfo Edwards MD at [facility] MAIN OR CURRENT MEDICATIONS: Current Facility-Administered Medications: saline flush, 10 mL, IV Push, PRN, Norberto Rubio MD cefTRIAXone (ROCEPHIN) 2 g in D5W 50 ml IVPB (PREMIX), 2 g, Intravenous, Now, Norberto Rubio MD Current Outpatient Medications: HYDROcodone-acetaminophen (NORCO) 5-325 mg tablet, Take 1 Tab by mouth every 8 hours as needed for Pain, Disp: 21 Tab, Rfl: 0 gabapentin (NEURONTIN) 300 mg capsule, Take 1 Cap by mouth two times a day, Disp: 180 Cap, Rfl: 3 fenofibrate (LOFIBRA) 160 mg tablet, Take 1 Tab by mouth daily, Disp: 90 Tab, Rfl: 3 glimepiride (AMARYL) 4 mg tablet, Take 1 Tab by mouth two times a day, Disp: 180 Tab, Rfl: 3 apixaban (ELIQUIS) 5 mg tablet, Take 1 Tab by mouth two times a day, Disp: 180 Tab, Rfl: 3 metFORMIN XR (GLUCOPHAGE XR) 500 mg SR-tablet 24 Hr, Take 2 Tab by mouth twice a day before meals, Disp: 360 Tab, Rfl: 3 AtorvaSTATin (LIPITOR) 40 mg tablet, Take 1 Tab by mouth daily, Disp: 90 Tab, Rfl: 3 aten (more content not included)... Normal [facility] ED TRIAGEon 11-10-2023 [facility] Ed Triage Note ED Triage Note: Last filed note HNO ID: [id number] Author: Arelis Rodriguez RN Service: Emergency Medicine Author Type: Registered Nurse Filed: 11/10/23 1640 Note Text: Pt son is in from out of town. He states pt has a history of cellulitis in her R leg. He states she has been less sharp and less steady and didn't want to leave before she was checked out to make sure she is ok. Pt A and ambulatory in triage. Normal [facility] ERYTHROCYTE SEDIMENTATION RA Maribell 11-10-2023 ESR (Bld) [Velocity] 22 mm/h [facility] Interpretation and review of laboratory results Normal [facility] SEDIMENTATION RATE 22 mm/hr Normal 0-30 [facility] Comment on above: Performed By: #### P [id number] #### [place] [address] [employer] 11-10-2023 Supervisor [employer] Authentication Interface Message Text [facility] History 11/10/2023 Patient Identifier/Hospitalist Patient Name: Hanna Nelson : 1940 I saw and examined the patient on 11/10/2023 Hospitalist: Bautista White MD Spectralink: Haiku Disposition/Assessment and Plan Disposition: Discharge in 1-3 days. Assessment/plan: Right lower extremity cellulitis. Likely secondary to right diabetic plantar/foot ulcer. Blood cultures have been ordered in the emergency room. Check MRSA PCR. Patient received a dose of Rocephin in ER. Will start vancomycin and cefepime. Acute kidney injury. Likely prerenal azotemia. Hold/avoid nephrotoxic medications. Start gentle normal saline infusion and monitor renal function overnight. Uncontrolled diabetes type 2 with hyperglycemia. Hold oral diabetic agents. Start scheduled Lantus, medium dose sliding scale insulin. Monitor Accu-Chek closely and adjust insulin dose as needed. Pseudohyponatremia, secondary to hyperglycemia. Expect resolution of hyponatremia with correction of hyperglycemia. Other comorbidities: history of uncontrolled diabetes type 2, chronic right foot diabetic ulcer (plantar aspect), hypertension associated with diabetes, hyperlipidemia associated with diabetes, paroxysmal atrial fibrillation (on chronic anticoagulation with Eliquis), peripheral arterial disease, hypothyroidism, osteoarthritis. DVT Prophylaxis: Eliquis Code Status: Full Subjective Chief Complaint: Right leg swelling, redness History of Present Illness: Hanna Nelson is an 83-year-old female with history of uncontrolled diabetes type 2, chronic right foot diabetic ulcer (plantar aspect), hypertension associated with diabetes, hyperlipidemia associated with diabetes, paroxysmal atrial fibrillation (on chronic anticoagulation with Eliquis), peripheral arterial disease, hypothyroidism, osteoarthritis, who presents to the emergency room with complaints of right lower extremity erythema, swelling, with no associated fever or chills, onset earlier today. She has chronic right foot/plantar diabetic ulcer that has been closely monitored/managed at wound care clinic. X-ray-right foot obtained in the emergency room revealed soft tissue swelling but no acute pathology. Creatinine is slightly elevated at 1.5 (baseline 1.1), glucose 430, sodium 133. Sed rate is normal at 22. Review of Systems: 10 point review of systems has been completed and is negative unless noted above. Past Medical History: Diagnosis Date Arthritis Generalized Back pain Charcot's arthropathy 2016 Right Foot Ulcer COVID-19 07/26/2020 Diabetes DX- 1996 Type 2- On Metformin Fall 06/30/2017 Laceration to Scalp Hypercholesteremia On Lipitor Hypothyroid On Levothyroxine Irregular heart beat 07/31/2017 1 episode-ST done results negative Neurogenic claudication due to lumbar spinal stenosis October 2017 Peripheral neuropathy On Gabapentin Peripheral vascular disease (HC CODE) 2010 Unspecified essential hypertension On Amlodipine, Lisinopril Past Surgical History: Procedure Laterality Date CARDIAC STRESS TST,COMPLETE 08/01/2017 MVS- Irregular Heart Beat- Results Negative-EF>70% CAUDAL EPIDURAL BLOCK 09/02/2017 ECHO Historical 1987 [facility]- ? Why -Results Good EPIDURAL LUMBAR TRANSFORMINAL Left 03/25/2017 L3-L4 LAMINECTOMY DECOMPRESSION POSTERIOR 3 LEVEL N/A 10/22/2017 LAMINECTOMY DECOMPRESSION POSTERIOR 3 LEVEL performed by Adolfo Edwards MD at [facility] MAIN OR LIG/TRNSXJ FLP TUBE ABDL/VAG APPR UNI/BI Ligation or Transection of Fallopian Tubes, Unilat or Bilat LUMBAR TRANSFORAMINAL EPIDURAL 04/29/2017 L4-L5 Other Surgical History Left 01/24/2015 Left Foot Metatarsal Head Bone Biopsy per Dr Ann Vasquez @ [facility] Other Surgical History Right 10/17/2015 Irigation W/Sharp Excisional Debridement Right Foot. 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 per Dr Loaiza @ [facility] Other Surgical History 2009 Fractured Hip REMOVAL [facility] WOUND VAC APPLICATION/CHANGE N/A 10/22/2017 WOUND VAC APPLICATION/CHANGE performed by Adolfo Edwards MD at [facility] MAIN OR Social History Socioeconomic History Marital status: Spouse name: Not on file Number of children: Not on file Years of education: Not on file Highest education level: Not on file Occupational History Not on file Tobacco Use Smoking status: Former Packs/day: 0.50 Years: 7.00 Additional pack years: 0.00 Total pack years: 3.50 Types: Cigarettes Quit date: 08/12/1964 Years since quittin.2 Smokeless tobacco: Never Vaping Use Vaping Use: Never used Substance and Sexual Activity Alcohol use: Yes Alcohol/week: 1.0 standard drink of alcohol Types: 1 Cans of beer per week Comment: monthly Drug use: No Sexual activity: Not on file Other Topics Concern (more content not included)... Normal [facility] HEPATIC FUNCTION PANELOrdere d By: Philly Partida on 11-10-2023 Albumin [Mass/Vol] 4.0 g/dL 3.5 - 5.2 g/dL [facility] ALP [Catalytic activity/Vol] 72 U/L 23 - 144 U/L [facility] ALT [Catalytic activity/Vol] 21 U/L 0 - 60 U/L [facility] AST [Catalytic activity/Vol] 17 U/L 0 - 55 U/L [facility] Bilirubin [Mass/Vol] 0.4 mg/dL 0.0 - 1 .2 mg/dL [facility] Bilirubin.direct [Mass/Vol] 0.2 mg/dL 0.0 - 0.4 mg/dL [facility] Bilirubin.indirect [Mass/Vol] 0.2 mg/dL 0.0 - 1.2 mg/dL [facility] Interpretation and review of laboratory results Normal [facility] Protein [Mass/Vol] 7.5 g/dL 6.0 - 8.3 g/dL [facility] HEPATIC FUNCTION PANELon Albumin [Mass/Vol] 4.0 g/dL Normal 3.5-5.2 [facility] Comment on above: Performed By: #### P [id number] #### [place] [address] ALP [Catalytic activity/Vol] 72 U/L Normal 23-144 [facility] Comment on above: Performed By: #### P [id number] #### [place] [address] ALT [Catalytic activity/Vol] 21 U/L Normal 0-60 [facility] Comment on above: Performed By: #### P [id number] #### [place] [address] AST [Catalytic activity/Vol] 17 U/L Normal 0-55 [facility] Comment on above: Performed By: #### P [id number] #### [place] [address] Bilirubin [Mass/Vol] 0.4 mg/dL Normal 0.0-1.2 [facility] Comment on above: Performed By: #### P [id number] #### [place] [address] BILIRUBIN, INDIRECT 0.2 mg/dL Normal 0.0-1.2 [facility] Comment on above: Performed By: #### P [id number] #### [place] [address] Bilirubin.indirect [Mass/Vol] 0.2 mg/dL Normal 0.0-0.4 [facility] Comment on above: Performed By: #### P [id number] #### [place] [address] Protein [Mass/Vol] 7.5 g/dL Normal 6.0-8.3 [facility] Comment on above: Performed By: #### P [id number] #### [place] [address] MAGNESIUM, SERUMon Interpretation and review of laboratory results Normal [facility] Magnesium [Mass/Vol] 1.8 mg/dL 1.4 - 2 .5 mg/dL [facility] Magnesium [Mass/Vol] 1.8 mg/dL Normal 1.4-2.5 [facility] Comment on above: Performed By: #### L [id number] ####[place] [phone] MRSA DNA XXX Ql ROBERT+probeon 11-10-2023 MRSA DNA ROBERT+probe Ql (Unsp spec) Test Not Performed. No suitable specimen received. Normal NOT DETECTED [facility] Comment on above: Performed By: #### 3 [id number] #### MICHEL Colon ([id number]) , [facility] No Panel Informationon 11-09 [facility] POC GLUCOSEon 11-10-2023 Glucose [Mass/Vol] 406 mg/dL High 70 - 99 mg/dL [facility] Comment on above: Testing not FDA appr leopoldo for use with patients in DKA or receiving intensive medical intervention/therapy. Test was performed by caregiver. Interpretation and review of laboratory results Abnormal [facility] Scan Result [facility] Glucose [Mass/Vol] 406 mg/dL High 70-99 [facility] Comment on above: Result Comment: Test ing not FDA approved for use with patients in DKA or receiving intensive medical intervention/therapy. Test was performed by caregiver. Performed By: #### P [id number] #### [place] [address] TO SCAN RESULT USE "SCAN" ICON Normal [facility] Comment on above: Performed By: #### P [id number] #### [place] [address] PROTHROMBIN TIMEon INR Coag (PPP) [Relative time] 1.1 {INR} 0.9 - 1.1 [facility] Interpretation and review of laboratory results Normal [facility] PT Coag (PPP) [Time] 13.6 s [facility] Conventional anticoagulation: 2.0 - 3.0 Intensive anticoagulation: 2.5 - 3.5 [facility] COMMENT Conventional anticoagulation: 2.0 - 3.0 Normal [facility] Comment on above: Result Comment: Inte nsive anticoagulation: 2.5 - 3.5 Performed By: #### L [id number] ####[place] [phone] INR Coag (PPP) [Relative time] 1.1 {INR} Normal 0.9-1.1 [facility] Comment on above: Performed By: #### L [id number] ####[place] [phone] PT Coag (PPP) [Time] 13.6 s Normal 11.7-13.9 [facility] Comment on above: Performed By: #### L [id number] ####[place] [phone] SEPSIS LACTATE W/ REFLEXon 0 11-10-2023 Interpretation and review of laboratory results Normal [facility] Lactate [Mass/Vol] 1.6 mmol/L 0.5 - 2.2 mmol/L [facility] If ruling out sepsis : Result >2.0 meets criteria for severe sepsis, recommend repeat testing to rule out sepsis. Result >=4.0 meets criteria for septic shock. [facility] COMMENT If ruling out sepsis: Normal [facility] Comment on above: Result Comment: Resu lt >2.0 meets criteria for severe sepsis, recommend repeat testing to rule out sepsis. Result >=4.0 meets criteria for septic shock. Performed By: #### P [id number] #### [place] [address] Lactate [Moles/Vol] 1.6 mmol/L Normal 0.5-2.2 [facility] Comment on above: Performed By: #### P [id number] #### [place] [address] XR FOOT RIGHT MINIMUM 3 VIEW Son 11-10-2023 XR FOOT RIGHT MINIMUM 3 VIEWS Right foot History: CELLULITIS, COMPARISON: 05/06/2023 3 views of the foot. Soft tissue swelling. Chronic fusion of the tarsal joints. Spurring at the the tarsometatarsal joint region with joint space narrowing and sclerosis due to significant chronic degenerative change. Chronic deformity of the second metatarsophalangeal joint with probably adjacent dystrophic calcification. Moderate-sized spurring in the posterior plantar aspect of the calcaneus. Spurring in the medial aspect of the medial malleolus. IMPRESSION: Significant chronic changes. Soft tissue swelling. No acute fracture or focal discrete new bone erosion identified. Dictated by Liset Wilson MD, PhD Workstation ID:[id number] He states pt has a history of cellulitis in her R leg. He states she has been less sharp and less steady and didn't want to leave before she was checked out to make sure she is ok Normal [facility] IMPRESSION: Signific ant chronic changes. Soft tissue swelling. No acute fracture or focal discrete new bone erosion identified. Dictated by Liset Wilson MD, PhD Workstation ID:[id number] [facility] Right foot History: CELLULITIS, COMPARISON: 05/06/2023 3 views of the foot. Soft tissue swelling. Chronic fusion of the tarsal joints. Spurring at the the tarsometatarsal joint region with joint space narrowing and sclerosis due to significant chronic degenerative change. Chronic deformity of the second metatarsophalangeal joint with probably adjacent dystrophic calcification. Moderate-sized spurring in the posterior plantar aspect of the calcaneus. Spurring in the medial aspect of the medial malleolus. [facility] Liset Watts MD - 11/10/2023 Right foot History: CELLULITIS, COMPARISON: 05/06/2023 3 views of the foot. Soft tissue swelling. Chronic fusion of the tarsal joints. Spurring at the the tarsometatarsal joint region with joint space narrowing and sclerosis due to significant chronic degenerative change. Chronic deformity of the second metatarsophalangeal joint with probably adjacent dystrophic calcification. Moderate-sized spurring in the posterior plantar aspect of the calcaneus. Spurring in the medial aspect of the medial malleolus. IMPRESSION: Significant chronic changes. Soft tissue swelling. No acute fracture or focal discrete new bone erosion identified. Dictated by Liset Wilson MD, PhD Workstation ID:[id number] [facility] Radiology Study observation (narrative) [facility] XR FOOT RIGHT MINIMUM 3 VIEW SOrdered By: Liset Wilson on 11-10-2023 [place] [employer] Work Phone: NURSING NOTEon 10-18-2023 [employer] Authentication Interface Message Text Patient here for right shoulder pain, radiates down arm into hand. Normal Provider Locations PROGRESS NOTESon 10-18-2023 [employer] Authentication Interface Message Text ASSESSMENT ICD-10-CM ICD-9-CM 1. Acute pain of right shoulder M25.511 719.41 XR SHOULDER RIGHT STANDARD VIEW HYDROcodone-acetaminophen (NORCO) 5-325 mg tablet MEDICAL DECISION MAKING 1. Acute pain of right shoulder appears to be subacromial bursitis and tendinitis of right shoulder. X-ray ordered to assess for any fracture or osteoarthritis. Will treat pain with Dobbins. If x-ray is clear fracture consider subacromial bursa injection Weight management and counseling: Estimated body mass index is 32.43 kg/m? as calculated from the following: Height as of this encounter: 1.778 m (5' 10"). Weight as of this encounter: 102.5 kg (226 lb).. This was discussed with patient. The BMI is noted to be: overweight, BMI management plan is: POC weight counseling and POC exercise counseling. Electronically signed by: Lisy Pace MD, 10/18/2023 1:30 PM The electronic medical record was reviewed and updated as indicated via the [employer] as Reviewed time-stamps. SUBJECTIVE: CHIEF COMPLAINT Chief Complaint Patient presents with Shoulder Pain NURSING NOTES: Nursing Notes: Magnolia Murguia LPN 10/18/23 1048 Signed Patient here for right shoulder pain, radiates down arm into hand. HISTORY OF PRESENT ILLNESS: Hanna Nelson is a 83 year old female presents with severe right shoulder pain unable to raise arm above shoulder height. And has some radiation down her hand. There was no known injury. But she does use her right hand for manipulating her cane and helping her walk REVIEW OF SYSTEMS: Review of systems negative except for as stated in HPI. Past Medical History: Diagnosis Date Arthritis Generalized Back pain Charcot's arthropathy 2016 Right Foot Ulcer COVID-19 07/26/2020 Diabetes DX- 1997 Type 2- On Metformin Fall 06/30/2017 Laceration to Scalp Hypercholesteremia On Lipitor Hypothyroid On Levothyroxine Irregular heart beat 07/31/2017 1 episode-ST done results negative Neurogenic claudication due to lumbar spinal stenosis October 2017 Peripheral neuropathy On Gabapentin Peripheral vascular disease (HC CODE) 2010 Unspecified essential hypertension On Amlodipine, Lisinopril Social History Tobacco Use Smoking status: Former Packs/day: 0.50 Years: 7.00 Additional pack years: 0.00 Total pack years: 3.50 Types: Cigarettes Quit date: 08/12/1964 Years since quittin.2 Smokeless tobacco: Never Vaping Use Vaping Use: Never used Substance Use Topics Alcohol use: Yes Alcohol/week: 1.0 standard drink of alcohol Types: 1 Cans of beer per week Comment: monthly Drug use: No OBJECTIVE: BP 118/78 Physical Exam Vitals and nursing note reviewed. Constitutional: Appearance: She is well-developed. HENT: Head: Normocephalic and atraumatic. Right Ear: External ear normal. Left Ear: External ear normal. Nose: Nose normal. Eyes: Conjunctiva/sclera: Conjunctivae normal. Pupils: Pupils are equal, round, and reactive to light. Cardiovascular: Rate and Rhythm: Normal rate and regular rhythm. Heart sounds: Normal heart sounds. Pulmonary: Effort: Pulmonary effort is normal. Breath sounds: Normal breath sounds. Abdominal: General: Bowel sounds are normal. Palpations: Abdomen is soft. Musculoskeletal: Right shoulder: Tenderness, bony tenderness and crepitus present. No swelling or deformity. Decreased range of motion. Cervical back: Normal range of motion and neck supple. Skin: General: Skin is warm and dry. Neurological: Mental Status: She is alert and oriented to person, place, and time. Deep Tendon Reflexes: Reflexes are normal and symmetric. Psychiatric: Behavior: Behavior normal. Thought Content: Thought content normal. Judgment: Judgment normal. Normal Provider Locations [employer] Authentication Interface Message Text Physical Therapy Visit [facility] [address] PATIENT INFORMATION Patient Name: Hanna Nelson : 1940 Evaluation Date: 10/11/23 Service Date: 10/18/2023 Diagnosis: Spinal stenosis of lumbar region with neurogenic claudication [M48.062];Chronic pain of right knee [M25.561, G89.29];Imbalance [R26.89] Precautions: standard ORDER Referring Provider: Lisy Pace MD Order Date: 10/06/23 Order Details: eval and treat Insurance: Medicare Insurance Authorization: - Medicare Certification Dates: 10/11/23 to 01/03/24 Subjective: Pt arrives 7 minutes late. States there were no handicap spots available so had to park farther away. Stats she lost the printout for her HEP so has not been doing it. States she is having a lot of shoulder pain and has an appt for that right after this. History: Pt is here for knee pain and gait/balance training. Pt states no recent falls. Presents with cane and states she does not use cane at home, just out in the community. States she has R knee pain on and off, increased with activity. Denies back pain. Denies numbness/tingling, however states she does have neuropathy. Does not use stairs at home. States she can do anything she wants to do, just has to do things slowly. Prior level of function: no difficulties with ADLs, no AD Current level of function: 10/10: uses cane in the community, difficulty with sit to stand without use of hands Patient's Goal: Pt is seeking PT to improve her gait, gain strength, and improve pain Treatment: Evaluation; Skilled Care per Treatment Table below; patient education as detailed below. Objective: Skilled care provided per Treatment Table below. R knee ROM 0-7 post tx Home Ex 10/11/2023: Patient educated on the larsen components of strength and balance and how we will focus on strength, flexibility, and gait mechanics to improve fall risk. Patient educated on the weaknesses and dysfunction seen and the overall expected progress seen. Patient educated on overall POC and purpose of goals being set. Patient provided time to ask any questions and answers were provided if possible.Patient provided and instructed in HEP; patient demonstrated and reported understanding. 10/17: reviewed HEP Date: 10/11/23 10/18/23 Name: AB Visit 1 2 3 4 5 6 7 8 Pain Rating 11/19 / / / Progress Report SAQs 2 lbs 3 x 15 R 4 lbs 3 x 15 LAQs 5 lbs 3 x 14 R Shuttle press 3 bands 2 x 10 education See above Seated hamstring curls Blue band 2 x 10 manual Knee extension mobilization grade 3-4 Knee extension mob X=completed NM=not measured --- or (blank) =not performed DC=discontinued * = HEP Assessment/Response to Treatment: Able to improve knee extension slightly post tx. Added resistance for open chain quads with good tolerance and initiated hamstring strengthening. Will focus more on balance next visit. Initial Goal Status By Primary Functional Limitation Unable to sit to stand without use of hands Pt able to sit to stand without use of hands 1x progressing 6 weeks. Balance endurace 34.55 sec on TUG Pt will achieve a score of 25 or less on TUG progressing 6 weeks Strength Gross LE strength limited LE strength 4+/5 progressing 6 weeks Subjective ABCS: 38.12 Pt will report a score of 50% on ABCS progressing 6weeks HEP Pt will be independent with HEP progressing 2 weeks Plan: The patient is to be seen 1x/week x 6 weeks. The treatment plan includes: Gait training (21395), Manual (26964), Neuromuscular re-education (63448), Patient education, Therapeutic activities (86189), and Therapeutic exercise (72682). Next visit: balance exercises Electronically signed by: Jimmie Ziegler, PT Normal [facility] XR SHOULDER RIGHT STANDARD V IEWon 10-18-2023 XR SHOULDER RIGHT STANDARD VIEW EXAM: XR right shoulder series 2 views CLINICAL: Shoulder pain COMPARISON: There is no prior study for comparison. TECHNIQUE: 2 views of the right shoulder FINDINGS: There is no acute fracture or dislocation of the right shoulder. Soft tissues are unremarkable. There is mild to moderate glenohumeral and acromioclavicular degeneration. Spondylosis of the spine. IMPRESSION: No acute abnormality of the right shoulder. Degenerative change. Dictated by: Amauyr Ardon M.D.Workstation ID:[id number] RT shoulder pain. No known trauma. Normal [facility] IMPRESSION: No acute abnormality of the right shoulder. Degenerative change. Dictated by: Amaury Ardon M.D.Workstation ID:[id number] [facility] EXAM: XR right shoul jacklyn series 2 views CLINICAL: Shoulder pain COMPARISON: There is no prior study for comparison. TECHNIQUE: 2 views of the right shoulder FINDINGS: There is no acute fracture or dislocation of the right shoulder. Soft tissues are unremarkable. There is mild to moderate glenohumeral and acromioclavicular degeneration. Spondylosis of the spine. [facility] EXAM: XR right shoulder series 2 views CLINICAL: Shoulder pain COMPARISON: There is no prior study for comparison. TECHNIQUE: 2 views of the right shoulder FINDINGS: There is no acute fracture or dislocation of the right shoulder. Soft tissues are unremarkable. There is mild to moderate glenohumeral and acromioclavicular degeneration. Spondylosis of the spine. IMPRESSION: No acute abnormality of the right shoulder. Degenerative change. Dictated by: Amaury Ardon M.D.Workstation ID:[id number] [facility] Radiology Study observation (narrative) [facility] XR SHOULDER RIGHT STANDARD V IEWOrdered By: Amaury Ardon on 10-18-2023 [facility] Work Phone: CARE PLANon 10-17-2023 [employer] Authentication Interface Message Text Progressing. Normal [facility] MEDICAL STAFFon 10-17-2023 [employer] Authentication Interface Message Text [facility] 10/17/2023 Patient Name: Hanna Nelson : 1940 AGE: [age] year old GENDER: Female Chief Complaint/Reason for Visit Hanna Nelson is a 81 year old female who presents today for wound care of chronic wound on the bottom of the right foot. 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 -No signs of infection. Monitor off antibiotics. -Continue with diabetic shoe with offloading insert at all times while walking. -Continue with local wound care -Any signs of infection before the next visit go to the emergency room -Follow-up 2 weeks Patient's Problem List Patient Active Problem List Diagnosis Essential hypertension Type 2 diabetes mellitus (HC CODE) Arthritis Hypothyroidism Palpitation Hyponatremia Spinal stenosis of lumbar region with neurogenic claudication Paroxysmal atrial fibrillation (HC CODE) Postoperative ileus (HC CODE) Paraparesis (HC CODE) Ataxia Cellulitis Peripheral vascular disease (HC CODE) Education regarding disease process, wound care, pressure relief and elevation discussed with patient today. Time spent with patient and patient care related issues in addition to coordination of patient's care with other physicians/agencies: Discharge Instructions were given to patient, significant other, caregiver, or DPOHC. Follow-up Wound Right Leg Medial Blister (bullae) (Active) Wound Right Foot Plantar (Active) Dressing Status / Change Dry Wound Bed Appearance Red 10/17/23 1300 Drainage Amount Moderate 10/03/23 1300 Drainage Appearance Red brown 10/03/23 1300 Odor None 10/17/23 1300 Wound cleanser Normal saline 10/17/23 1300 Specific Procedures Other (Comment) 07/25/23 1331 Advanced Wound Intervention Photos 09/19/23 1300 Wound length (cm) 0.2 cm 10/17/23 1341 Wound width (cm) 0.4 cm 10/17/23 1341 Wound depth (cm) 0.1 cm 10/17/23 1341 Wound Surface Area (length x width) 0.08 10/17/23 1341 Undermining / Tunneling No 03/07/23 1300 Periwound (surrounding) tissue Macerated;Calloused 10/17/23 1300 Primary Dressing Collagens;Antimicrobial;Alg inate 10/17/23 1341 Secondary Dressing Foam Dressing-Silicone Boarder 10/17/23 1341 Objective Vitals Signs: Visit Vitals BP 154/72 Pulse 76 Temp 96.9 F (36.1 C) Resp 16 OB Status Postmenopausal Smoking Status Former General Exam GENERAL: The patient is in no acute distress. RESP: Nonlabored breathing. No distress. Normal respirations. ABD: benign EXTREMITIES: No signs of infection to the right lower extremity Medications and Allergies No outpatient medications have been marked as taking for the 10/17/23 encounter (Hospital Encounter) with [facility] 1. Allergies Allergen Reactions Tape 1"X5yd [Adhesive Tape] Rash Redness. Avoids. Prefers paper tape Labs: WBC COUNT Date Value Ref Range Status 09/12/2023 8.1 3.5 - 10.9 K/uL Final HEMOGLOBIN Date Value Ref Range Status 09/12/2023 12.2 11.2 - 15.7 G/DL Final HEMATOCRIT Date Value Ref Range Status 09/12/2023 36.8 34.0 - 49.0 % Final PLATELET COUNT Date Value Ref Range Status 09/12/2023 268 140 - 400 K/uL Final SODIUM Date Value Ref Range Status 09/12/2023 138 135 - 148 MEQ/L Final 10/21/2020 135 135 - 148 MEQ/L POTASSIUM Date Value Ref Range Status 09/12/2023 4.7 3.4 - 5.3 MEQ/L Final CHLORIDE Date Value Ref Range Status 09/12/2023 101 96 - 110 MEQ/L Final CARBON DIOXIDE Date Value Ref Range Status 09/12/2023 24 19 - 32 MEQ/L Final GLUCOSE Date Value Ref Range Status 09/12/2023 186 70 - 99 MG/DL Final Comment: (NOTE) The [place] [employer] recommends the following guidelines: MG/DL <100 = NORMAL GLUCOSE 100-125= IMPAIRED FASTING GLUCOSE >=126 = PROVISIONAL DIAGNOSIS OF DIABETES ADA Workgroup Report, Diabetic Care, volume 40, August 2016 CREATININE Date Value Ref Range Status 09/12/2023 1.1 0.5 - 1.2 MG/DL Final BUN Date Value Ref Range Status 09/12/2023 32 3 - 29 MG/DL Final CALCIUM Date Value Ref Range Status 09/12/2023 10.0 8.5 - 10.5 MG/DL Final ALBUMIN, SERUM Date Value Ref Range Status 10/16/2020 2.9 3.5 - 5.2 GM/DL PROTHROMBIN TIME Date Value Ref Range Status 05/15/2019 13.0 11.7 - 13.9 SECONDS PARTIAL THROMBOPLASTIN TIME Date Value Ref Range Status 05/15/2019 23.3 24.5 - 35.2 SECONDS INR Date Value Ref Range Status 05/15/2019 1.0 0.9 - 1.1 Comment: MODERATE-INTENSITY WARFARIN THERAPY: 2.0-3.0 HIGHER-INTENSITY WARFARIN THERAPY: 3.0-4.0 HEMOGLO (more content not included)... Normal [facility] MEDICAL STAFFon 10-03-2023 [employer] Authentication Interface Message Text [facility] 10/03/2023 Patient Name: Hanna Nelson : 1940 AGE: [age] year old GENDER: Female Chief Complaint/Reason for Visit Hanna Nelson is a 81 year old female who presents today for wound care of chronic wound on the bottom of the right foot. No changes from previous. Getting diabetic shoes next week Assessment/Dermatologic Exam/Plan Assessment -Right lower extremity ulceration down to subcutaneous tissue (Daniels grade 2) -Charcot foot deformity right foot -Type 2 diabetes mellitus with peripheral neuropathy -Abrasion right foot Plan -Patient was seen, evaluated, and treated today. -No signs of infection. Monitor off antibiotics. -Continue with diabetic shoe with offloading insert at all times while walking. -Getting diabetic shoes next week -Continue with local wound care -Any signs of infection before the next visit go to the emergency room -Follow-up 2 weeks Patient's Problem List Patient Active Problem List Diagnosis Essential hypertension Type 2 diabetes mellitus (HC CODE) Arthritis Hypothyroidism Palpitation Hyponatremia Spinal stenosis of lumbar region with neurogenic claudication Paroxysmal atrial fibrillation (HC CODE) Postoperative ileus (HC CODE) Paraparesis (HC CODE) Ataxia Cellulitis Peripheral vascular disease (HC CODE) Education regarding disease process, wound care, pressure relief and elevation discussed with patient today. Time spent with patient and patient care related issues in addition to coordination of patient's care with other physicians/agencies: Discharge Instructions were given to patient, significant other, caregiver, or DPOHC. Follow-up Wound Right Leg Medial Blister (bullae) (Active) Wound Right Foot Plantar (Active) Dressing Status / Change Moist with drainage 10/03/23 1300 Wound Bed Appearance Red 10/03/23 1300 Drainage Amount Moderate 10/03/23 1300 Drainage Appearance Red brown 10/03/23 1300 Odor None 10/03/23 1300 Wound cleanser Normal saline 10/03/23 1300 Specific Procedures Other (Comment) 07/25/23 1331 Advanced Wound Intervention Photos 09/19/23 1300 Wound length (cm) 0.2 cm 10/03/23 1355 Wound width (cm) 0.7 cm 10/03/23 1355 Wound depth (cm) 0.15 cm 10/03/23 1355 Wound Surface Area (length x width) 0.14 10/03/23 1355 Undermining / Tunneling No 03/07/23 1300 Periwound (surrounding) tissue Macerated;Calloused 10/03/23 1300 Primary Dressing Collagens;Alginate;Antimicr obial 10/03/23 1355 Secondary Dressing Foam Dressing-Silicone Boarder 10/03/23 1355 Objective Vitals Signs: Visit Vitals BP 124/61 Pulse 100 Temp 95.9 F (35.5 C) Resp 16 OB Status Postmenopausal Smoking Status Former General Exam GENERAL: The patient is in no acute distress. RESP: Nonlabored breathing. No distress. Normal respirations. ABD: benign EXTREMITIES: No signs of infection to the right lower extremity Medications and Allergies No outpatient medications have been marked as taking for the 10/03/23 encounter (Hospital Encounter) with [facility] 4. Allergies Allergen Reactions Tape 1"X5yd [Adhesive Tape] Rash Redness. Avoids. Prefers paper tape Labs: WBC COUNT Date Value Ref Range Status 09/12/2023 8.1 3.5 - 10.9 K/uL Final HEMOGLOBIN Date Value Ref Range Status 09/12/2023 12.2 11.2 - 15.7 G/DL Final HEMATOCRIT Date Value Ref Range Status 09/12/2023 36.8 34.0 - 49.0 % Final PLATELET COUNT Date Value Ref Range Status 09/12/2023 268 140 - 400 K/uL Final SODIUM Date Value Ref Range Status 09/12/2023 138 135 - 148 MEQ/L Final 10/21/2020 135 135 - 148 MEQ/L POTASSIUM Date Value Ref Range Status 09/12/2023 4.7 3.4 - 5.3 MEQ/L Final CHLORIDE Date Value Ref Range Status 09/12/2023 101 96 - 110 MEQ/L Final CARBON DIOXIDE Date Value Ref Range Status 09/12/2023 24 19 - 32 MEQ/L Final GLUCOSE Date Value Ref Range Status 09/12/2023 186 70 - 99 MG/DL Final Comment: (NOTE) The [place] [employer] recommends the following guidelines: MG/DL <100 = NORMAL GLUCOSE 100-125= IMPAIRED FASTING GLUCOSE >=126 = PROVISIONAL DIAGNOSIS OF DIABETES ADA Workgroup Report, Diabetic Care, volume 40August 2016 CREATININE Date Value Ref Range Status 09/12/2023 1.1 0.5 - 1.2 MG/DL Final BUN Date Value Ref Range Status 09/12/2023 32 3 - 29 MG/DL Final CALCIUM Date Value Ref Range Status 09/12/2023 10.0 8.5 - 10.5 MG/DL Final ALBUMIN, SERUM Date Value Ref Range Status 10/16/2020 2.9 3.5 - 5.2 GM/DL PROTHROMBIN TIME Date Value Ref Range Status 05/15/2019 13.0 11.7 - 13.9 SECONDS PARTIAL THROMBOPLASTIN TIME Date Value Ref Range Status 05/15/2019 23.3 24.5 - 35.2 SECONDS INR Date Value Ref Range Status 05/15/2019 1.0 0.9 - 1.1 Comment: MODERATE-INTENSITY WARFARIN THERAPY: 2.0-3.0 HIGHER-INTENSITY WARFARIN THERAPY: 3.0-4.0 HEMOGLOBIN A1C Date Value R (more content not included)... Normal [facility] MEDICAL STAFFon 09-19-2023 [employer] Authentication Interface Message Text [facility] 09/19/2023 Patient Name: Hanna Nelson : 1940 AGE: [age] year old GENDER: Female Chief Complaint/Reason for Visit Hanna Nelson is a 81 year old female who presents today for wound care of chronic wound on the bottom of the right foot. No changes from previous. Still waiting to hear when diabetic shoes will be ready. Assessment/Dermatologic Exam/Plan Assessment -Right lower extremity ulceration down to subcutaneous tissue (Daniels grade 2) -Charcot foot deformity right foot -Type 2 diabetes mellitus with peripheral neuropathy -Abrasion right foot Plan -Patient was seen, evaluated, and treated today. -No signs of infection. Monitor off antibiotics. -Continue with diabetic shoe with offloading insert at all times while walking. -Patient has been fit for diabetic shoes. Just waiting to see when they will come in for her. -Continue with local wound care -Any signs of infection before the next visit go to the emergency room -Follow-up 2 weeks Patient's Problem List Patient Active Problem List Diagnosis Essential hypertension Type 2 diabetes mellitus (HC CODE) Arthritis Hypothyroidism Palpitation Hyponatremia Spinal stenosis of lumbar region with neurogenic claudication Paroxysmal atrial fibrillation (HC CODE) Postoperative ileus (HC CODE) Paraparesis (HC CODE) Ataxia Cellulitis Peripheral vascular disease (HC CODE) Education regarding disease process, wound care, pressure relief and elevation discussed with patient today. Time spent with patient and patient care related issues in addition to coordination of patient's care with other physicians/agencies: Discharge Instructions were given to patient, significant other, caregiver, or DPOHC. Follow-up Wound Right Leg Medial Blister (bullae) (Active) Wound Right Foot Plantar (Active) Dressing Status / Change Moist with drainage 09/19/23 1300 Wound Bed Appearance Red 09/19/23 1300 Drainage Amount Moderate 09/19/23 1300 Drainage Appearance Red brown 09/19/23 1300 Odor None 09/19/23 1300 Wound cleanser Normal saline 09/19/23 1300 Specific Procedures Other (Comment) 07/25/23 1331 Advanced Wound Intervention Photos 09/19/23 1300 Wound length (cm) 0.3 cm 09/19/23 1348 Wound width (cm) 0.7 cm 09/19/23 1348 Wound depth (cm) 0.15 cm 09/19/23 1348 Wound Surface Area (length x width) 0.21 09/19/23 1348 Undermining / Tunneling No 03/07/23 1300 Periwound (surrounding) tissue Macerated;Calloused 09/19/23 1300 Primary Dressing Collagens;Alginate;Antimicr obial 09/19/23 1348 Secondary Dressing Foam Dressing-Silicone Boarder 09/19/23 1348 Objective Vitals Signs: Visit Vitals BP 162/74 Pulse 82 Temp 96 F (35.6 C) Resp 16 OB Status Postmenopausal Smoking Status Former General Exam GENERAL: The patient is in no acute distress. RESP: Nonlabored breathing. No distress. Normal respirations. ABD: benign EXTREMITIES: No signs of infection to the right lower extremity Medications and Allergies No outpatient medications have been marked as taking for the 09/19/23 encounter (Hospital Encounter) with [facility] 1. Allergies Allergen Reactions Tape 1"X5yd [Adhesive Tape] Rash Redness. Avoids. Prefers paper tape Labs: WBC COUNT Date Value Ref Range Status 09/12/2023 8.1 3.5 - 10.9 K/uL Final HEMOGLOBIN Date Value Ref Range Status 09/12/2023 12.2 11.2 - 15.7 G/DL Final HEMATOCRIT Date Value Ref Range Status 09/12/2023 36.8 34.0 - 49.0 % Final PLATELET COUNT Date Value Ref Range Status 09/12/2023 268 140 - 400 K/uL Final SODIUM Date Value Ref Range Status 09/12/2023 138 135 - 148 MEQ/L Final 10/21/2020 135 135 - 148 MEQ/L POTASSIUM Date Value Ref Range Status 09/12/2023 4.7 3.4 - 5.3 MEQ/L Final CHLORIDE Date Value Ref Range Status 09/12/2023 101 96 - 110 MEQ/L Final CARBON DIOXIDE Date Value Ref Range Status 09/12/2023 24 19 - 32 MEQ/L Final GLUCOSE Date Value Ref Range Status 09/12/2023 186 70 - 99 MG/DL Final Comment: (NOTE) The [place] [employer] recommends the following guidelines: MG/DL <100 = NORMAL GLUCOSE 100-125= IMPAIRED FASTING GLUCOSE >=126 = PROVISIONAL DIAGNOSIS OF DIABETES ADA Workgroup Report, Diabetic Care, volume 40August 2016 CREATININE Date Value Ref Range Status 09/12/2023 1.1 0.5 - 1.2 MG/DL Final BUN Date Value Ref Range Status 09/12/2023 32 3 - 29 MG/DL Final CALCIUM Date Value Ref Range Status 09/12/2023 10.0 8.5 - 10.5 MG/DL Final ALBUMIN, SERUM Date Value Ref Range Status 10/16/2020 2.9 3.5 - 5.2 GM/DL PROTHROMBIN TIME Date Value Ref Range Status 05/15/2019 13.0 11.7 - 13.9 SECONDS PARTIAL THROMBOPLASTIN TIME Date Value Ref Range Status 05/15/2019 23.3 24.5 - 35.2 SECONDS INR Date Value Ref Range Status 05/15/2019 1.0 0.9 - 1.1 Comment: MODERATE-INTENSITY WARFARIN THERAPY: 2.0 (more content not included)... Normal [facility] XR KNEE RIGHT STANDARD VIEWo n 09-19-2023 XR KNEE RIGHT STANDARD VIEW EXAM: XR right knee 2 views. CLINICAL: Chronic right knee pain COMPARISON: There is no prior study for comparison. TECHNIQUE: 2 views of the right knee. FINDINGS: There is no acute fracture. There is no significant joint effusion. There is no significant soft tissue edema. Intramedullary malick in the distal femoral shaft with a single distal shaft fixation screw traversing the malick. There is tricompartmental osteoarthritis of the knee with osteophyte and severe medial femorotibial narrowing and at least mild or moderate patellofemoral narrowing. IMPRESSION: Severe osteoarthritis. Dictated by: Amaury Ardon M.D.Workstation ID:[id number] Chronic pain of right knee Normal [facility] IMPRESSION: Severe osteoarthritis. Dictated by: Amaury Ardon M.D.Workstation ID:[id number] [facility] EXAM: XR right knee 2 views. CLINICAL: Chronic right knee pain COMPARISON: There is no prior study for comparison. TECHNIQUE: 2 views of the right knee. FINDINGS: There is no acute fracture. There is no significant joint effusion. There is no significant soft tissue edema. Intramedullary malick in the distal femoral shaft with a single distal shaft fixation screw traversing the malick. There is tricompartmental osteoarthritis of the knee with osteophyte and severe medial femorotibial narrowing and at least mild or moderate patellofemoral narrowing. RUPAL Amaury Abad MD - 09/19/2023 EXAM: XR right knee 2 views. CLINICAL: Chronic right knee pain COMPARISON: There is no prior study for comparison. TECHNIQUE: 2 views of the right knee. FINDINGS: There is no acute fracture. There is no significant joint effusion. There is no significant soft tissue edema. Intramedullary malick in the distal femoral shaft with a single distal shaft fixation screw traversing the malick. There is tricompartmental osteoarthritis of the knee with osteophyte and severe medial femorotibial narrowing and at least mild or moderate patellofemoral narrowing. IMPRESSION: Severe osteoarthritis. Dictated by: Amaury Ardon M.D.Workstation ID:[id number] [facility] Study observation (narrative) [facility] XR KNEE RIGHT STANDARD VIEWO rdered By: Amaury Ardon on 09-19-2023 [facility] Work Phone: NURSING NOTEon 09-16-2023 Supervisor [employer] Authentication Interface Message Text Patient here for med check, review labs. Right knee pain, balance issues. Interested in doing PT. Uses cane while away from home. Normal Provider Locations PROGRESS NOTESon 09-16-2023 Supervisor [employer]ing [employer] Authentication Interface Message Text ASSESSMENT ICD-10-CM ICD-9-CM 1. Type 2 diabetes mellitus without complication, without long-term current use of insulin (HC CODE) E11.9 250.00 glimepiride (AMARYL) 4 mg tablet metFORMIN XR (GLUCOPHAGE XR) 500 mg SR-tablet 24 Hr dulaglutide (TRULICITY) 1.5 mg/0.5 mL Pen Injector injection HEMOGLOBIN A1C W/ EST AVG GLUCOSE 2. Spinal stenosis of lumbar region with neurogenic claudication M48.062 724.03 gabapentin (NEURONTIN) 300 mg capsule PHYSICAL THERAPY - EVAL AND TREAT 3. Hyperlipidemia, unspecified hyperlipidemia type E78.5 272.4 fenofibrate (LOFIBRA) 160 mg tablet AtorvaSTATin (LIPITOR) 40 mg tablet CBC WITH DIFFERENTIAL COMPREHENSIVE METABOLIC PANEL LIPID PANEL (CORONARY RISK) 4. Chronic pain of right knee M25.561 719.46 XR KNEE RIGHT STANDARD VIEW G89.29 338.29 PHYSICAL THERAPY - EVAL AND TREAT 5. Imbalance R26.89 781.2 PHYSICAL THERAPY - EVAL AND TREAT 6. Paroxysmal atrial fibrillation (HC CODE) I48.0 427.31 apixaban (ELIQUIS) 5 mg tablet 7. 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 Peripheral vascular disease (HC CODE) I73.9 443.9 MEDICAL DECISION MAKING 1. DM- Stable, continue current regimen. Due to recurrent yeast infections Diflucan prescribed. Trulicity increased to 1.5mg 2. HTN- Stable, continue current regimen. 3. HLD- Stable, continue current regimen. 4. Afib- Stable, continue current regimen. 5. Hypothyroidism-continue 112mcg daily. 6. PVD- continue to follow up with wound care for evaluation and monitoring. 7. Paraparesis- continue PT to improve function Weight management and counseling: Estimated body mass index is 32.43 kg/m? as calculated from the following: Height as of this encounter: 1.778 m (5' 10"). Weight as of this encounter: 102.5 kg (226 lb).. This was discussed with patient. The BMI is noted to be: in the acceptable range. Electronically signed by: Lisy Pace MD, 09/16/2023 5:36 PM The electronic medical record was reviewed and updated as indicated via the [employer] as Reviewed time-stamps. SUBJECTIVE: CHIEF COMPLAINT Chief Complaint Patient presents with High Blood Pressure Diabetes NURSING NOTES: Nursing Notes: Magnolia Murguia LPN 09/16/23 1124 Signed Patient here for med check, review labs. Right knee pain, balance issues. Interested in doing PT. Uses cane while away from home. HISTORY OF PRESENT ILLNESS: Hanna Nelson is a 81 year old female 1. DM with ulcer- taking medications as prescribed. Continues to go to wound care. Jardiance is causing repeated vaginal infections. 2. HTN- taking medications as prescribed. 3. HLD- taking medications as prescribed. 4. Afib- taking medications as prescribed. 5. Hypothyroidism- taking levothyroxine as prescribed. 6. Right knee pain- gait imbalance. Also having right knee pain REVIEW OF SYSTEMS: Review of systems negative except for as stated in HPI. Past Medical History: Diagnosis Date Arthritis Generalized Back pain Charcot's arthropathy 2016 Right Foot Ulcer COVID-19 07/26/2020 Diabetes DX- 1996 Type 2- On Metformin Fall 06/30/2017 Laceration to Scalp Hypercholesteremia On Lipitor Hypothyroid On Levothyroxine Irregular heart beat 07/31/2017 1 episode-ST done results negative Neurogenic claudication due to lumbar spinal stenosis October 2017 Peripheral neuropathy On Gabapentin Peripheral vascular disease (HC CODE) 2010 Unspecified essential hypertension On Amlodipine, Lisinopril Social History Tobacco Use Smoking status: Former Packs/day: 0.50 Years: 7.00 Additional pack years: 0.00 Total pack years: 3.50 Types: Cigarettes Quit date: 08/12/1964 Years since quittin.1 Smokeless tobacco: Never Vaping Use Vaping Use: Never used Substance Use Topics Alcohol use: Yes Alcohol/week: 1.0 standard drink of alcohol Types: 1 Cans of beer per week Comment: monthly Drug use: No OBJECTIVE: BP 128/82 100% Physical Exam Constitutional: Appearance: She is well-developed. HENT: Head: Normocephalic and atraumatic. Nose: Nose normal. No mucosal edema or rhinorrhea. Mouth/Throat: Pharynx: Uvula midline. Eyes: Conjunctiva/sclera: Conjunctivae normal. Pupils: Pupils are equal, round, and reactive to light. Cardiovascular: Rate and Rhythm: Normal rate and regular rhythm. Heart sounds: Normal heart sounds. Pulmonary: Effort: Pulmonary effort is normal. Breath sounds: Normal breath sounds. No wheezing or rales. Abdominal: General: Bowel sounds are normal. Palpations: Abdomen is soft. Tenderness: There is no abdominal tenderness. Musculoskeletal: General: No tenderness. Normal range of motion. Cervical back: Normal range of motion and neck supple. Skin: General: Skin is warm and dry. Neurological: Mental Status: She is alert and oriented to person, place, and time. Deep Tendon Reflexes: Reflexes are normal and symmetric. Normal Provider Locations CBC WITH DIFFERENTIALon ABSOLUTE BASOPHIL 0.1 K/uL Normal 0.0-0.3 Provide r Locations ABSOLUTE SEGMENTED NEUTROPHIL 4.9 K/uL Normal 1.8-7.5 Provider Locations Basophils/100 WBC (Bld) 0.6 % Normal 0.0-2.0 Provider Locations DIFFERENTIAL AUTOMATIC METHOD Normal Provid er Locations Eosinophils (Bld) [#/Vol] 0.3 10*3/uL Normal 0.0-0.5 Provider Locations Eosinophils/100 WBC (Bld) 4.2 % Normal 0.0-5.0 Provider Locations Erythrocyte distribution width (RBC) [Ratio] 12.5 % Normal <15.1 Provider Locations Hematocrit (Bld) [Volume fraction] 36.8 % Normal 34.0-49.0 Provider Locations Hemoglobin (Bld) [Mass/Vol] 12.2 g/dL Normal 11.2-15.7 Provider Locations IMMATURE GRAN 0.6 % Normal <1 Provider Locations Immature granulocytes (Bld) [#/Vol] 0.1 10*3/uL Normal 0.0-0.1 Provider Locations Lymphocytes (Bld) [#/Vol] 2.1 10*3/uL Normal 0.9-4.1 Provider Locations Lymphocytes/100 WBC (Bld) 25.7 % Normal 14.0-51.0 Provider Locations MCH (RBC) [Entitic mass] 31.0 pg Normal 26.0-34.0 Provider Locations MCHC (RBC) [Mass/Vol] 33.2 g/dL Normal 30.7-35.5 Pro vider Locations MCV (RBC) [Entitic vol] 93.4 fL Normal 80.0-100.0 Provider Locations Monocytes (Bld) [#/Vol] 0.7 10*3/uL Normal 0.2-1.0 Provider Locations Monocytes/100 WBC (Bld) 8.4 % Normal 4.0-12.0 Provider Locations NUCLEATED RBCS 0.0 /100 WBC Normal 0 Provider Locations Platelet mean volume (Bld) [Entitic vol] 11.4 fL Normal 7.2-11.7 Provider Locations Platelets (Bld) [#/Vol] 268 10*3/uL Normal 140-400 Provider Locations RBC (Bld) [#/Vol] 3.94 10*6/uL Low 3.95-5.26 Provi jacklyn Locations Segmented neutrophils/100 WBC (Bld) 60.5 % Normal 42.0-80.0 Provider Locations WBC (Bld) [#/Vol] 8.1 10*3/uL Normal 3.5-10.9 Provid er Locations COMPREHENSIVE METABOLIC PANE David 09-12-2023 Albumin [Mass/Vol] 4.3 g/dL Normal 3.5-5.2 Provid er Locations Albumin/Globulin [Mass ratio] 1.7 {ratio} Normal 0.8-2.6 Provider Locations ALP [Catalytic activity/Vol] 48 U/L Normal 23-144 Provider Locations ALT [Catalytic activity/Vol] 16 U/L Normal 0-60 Provider Locations AST [Catalytic activity/Vol] 16 U/L Normal 0-55 Provider Locations Bilirubin [Mass/Vol] 0.4 mg/dL Normal 0.0-1.2 Prov ider Locations Calcium [Mass/Vol] 10.0 mg/dL Normal 8.5-10.5 Provid er Locations Chloride [Moles/Vol] 101 mmol/L Normal 96-110 Prov ider Locations CO2 [Moles/Vol] 24 mmol/L Normal 19-32 Provider Locations Creatinine [Mass/Vol] 1.1 mg/dL Normal 0.5-1.2 Pro vider Locations ESTIMATED GFR 50 MLS/MIN/1.73M2 Low >60 Prov ider Locations FASTING STATUS FASTING Normal Provider Locations Globulin (S) [Mass/Vol] 2.6 g/dL Normal 1.9-3.6 Provider Locations Glucose [Mass/Vol] 186 mg/dL High 70-99 Provid er Locations Comment on above: Result Comment: (NOT E) The [place] recommends the following guidelines: MG/DL <100 = NORMAL GLUCOSE 100-125= IMPAIRED FASTING GLUCOSE >=126 = PROVISIONAL DIAGNOSIS OF DIABETES ADA Workgroup Report, Diabetic Care, volume 40August 2016 Potassium [Moles/Vol] 4.7 mmol/L Normal 3.4-5.3 Pro vider Locations Protein [Mass/Vol] 6.9 g/dL Normal 6.0-8.3 Provid er Locations Sodium [Moles/Vol] 138 mmol/L Normal 135-148 Provid er Locations Urea nitrogen [Mass/Vol] 32 mg/dL High 3-29 Provider Locations Urea nitrogen/Creatinine [Mass ratio] 29 mg/mg High 7-25 Provider Locations HEMOGLOBIN A1C W/ EST AVG GL UCOSEon 09-12-2023 Glucose [Mass/Vol] 212 mg/dL Normal Provid er Locations HbA1c (Bld) [Mass fraction] 9.0 % High 4.0-6.0 Provider Locations Comment on above: Result Comment: (NOT E) The [place] [employer] recommends the following Guidelines: 5.7-6.4% Indicates increased risk for diabetes (Prediabetes). >6.5% Diagnostic of diabetes. In the absence of unequivocal hyperglycemia, results should be confirmed by repeat test. <7% Glycemic recommendation for non adults with diabetes. [place] [employer], Standards of Medical Care in Diabetes, Volume 40; 2017 LIPID PANEL (CORONARY RISK)o n 09-12-2023 Cholesterol [Mass/Vol] 102 mg/dL Normal <200 Pr ovider Locations Comment on above: Result Comment: (NOT E) DESIRABLE: <200 MG/DL BORDERLINE: 200-239 MG/DL HIGHER RISK: >239 MG/DL Cholesterol in HDL [Mass/Vol] 38 mg/dL Low >59 Provider Locations Comment on above: Result Comment: (NOT E) DESIRABLE: > OR = 60 MG/DL HIGHER RISK: <40 MG/DL LDL (CALCULATED) CALCULATIONS ARE NOT VALID WHEN TRIGLYCERIDE LEVELS EXCEED 400 MG/DL. Normal <100 Provider Locations Comment on above: Result Comment: (NOT E) OPTIMAL: <100 MG/DL NEAR/ABOVE OPTIMAL:100-129 MG/DL BORDERLINE HIGH: 130-159 MG/DL HIGH: 160-189 MG/DL VERY HIGH: > OR = 190 MG/DL Triglyceride [Mass/Vol] 410 mg/dL High <150 Provider Locations Comment on above: Result Comment: (NOT E) NORMAL: <150 MG/DL BORDERLINE HIGH: 150-199 MG/DL HIGH: 200-499 MG/DL VERY HIGH: > OR = 500 MG/DL Nonfasting specimens may have modest increases in Triglyceride levels ([employer], 2019) VLDL CALCULATIONS ARE NOT VALID WHEN TRIGLYCERIDE LEVELS EXCEED 400 MG/DL. Normal 4-38 Provider Locations THYROID STIMULATING HORMONEo n 09-12-2023 TSH 3.870 MCIU/ML Normal 0.400-4.50 0 Provider Locations CARE PLANon 09-05-2023 Supervisor [employer] Authentication Interface Message Text Progressing. Normal [facility] MEDICAL STAFFon 09-05-2023 Supervisor Forming And Tempering Authentication Interface Message Text [facility] 09/05/2023 Patient Name: Hanna Nelson : 1940 AGE: [age] year old GENDER: Female Chief Complaint/Reason for Visit Hanna Nelson is a 81 year old female who presents today for wound care of chronic wound on the bottom of the right foot. No changes from previous. She has been fit for diabetic shoes. Just waiting for an update on when they will be ready to be picked up Assessment/Dermatologic Exam/Plan Assessment -Right lower extremity ulceration down to subcutaneous tissue (Daniels grade 2) -Charcot foot deformity right foot -Type 2 diabetes mellitus with peripheral neuropathy -Abrasion right foot Plan -Patient was seen, evaluated, and treated today. -No signs of infection. Monitor off antibiotics. -Continue with diabetic shoe with offloading insert at all times while walking. -Patient has been fit for diabetic shoes. Just waiting to see when they will come in for her. -Continue with local wound care -Any signs of infection before the next visit go to the emergency room -Follow-up 2 weeks Patient's Problem List Patient Active Problem List Diagnosis Essential hypertension Type 2 diabetes mellitus (HC CODE) Arthritis Hypothyroidism Palpitation Hyponatremia Spinal stenosis of lumbar region with neurogenic claudication Paroxysmal atrial fibrillation (HC CODE) Postoperative ileus (HC CODE) Paraparesis (HC CODE) Ataxia Cellulitis Peripheral vascular disease (HC CODE) Lower extremity ulceration, right, with fat layer exposed (HC CODE) Education regarding disease process, wound care, pressure relief and elevation discussed with patient today. Time spent with patient and patient care related issues in addition to coordination of patient's care with other physicians/agencies: Discharge Instructions were given to patient, significant other, caregiver, or DPOHC. Follow-up Wound Right Leg Medial Blister (bullae) (Active) Wound Right Foot Plantar (Active) Dressing Status / Change Moist with drainage 09/05/23 1300 Wound Bed Appearance Red 09/05/23 1300 Drainage Amount Moderate 09/05/23 1300 Drainage Appearance Red brown 09/05/23 1300 Odor None 09/05/23 1300 Wound cleanser Normal saline 09/05/23 1300 Specific Procedures Other (Comment) 07/25/23 1331 Advanced Wound Intervention Photos 08/22/23 1300 Wound length (cm) 0.3 cm 09/05/23 1343 Wound width (cm) 0.4 cm 09/05/23 1343 Wound depth (cm) 0.15 cm 09/05/23 1343 Wound Surface Area (length x width) 0.12 09/05/23 1343 Undermining / Tunneling No 03/07/23 1300 Periwound (surrounding) tissue Macerated;Calloused 09/05/23 1300 Primary Dressing Collagens;Alginate 09/05/23 1343 Secondary Dressing Foam Dressing-Silicone Boarder 09/05/23 1343 Objective Vitals Signs: Visit Vitals BP 142/66 Pulse 80 Temp 97 F (36.1 C) Resp 16 OB Status Postmenopausal Smoking Status Former General Exam GENERAL: The patient is in no acute distress. RESP: Nonlabored breathing. No distress. Normal respirations. ABD: benign EXTREMITIES: No signs of infection to the right lower extremity Medications and Allergies No outpatient medications have been marked as taking for the 09/05/23 encounter (Hospital Encounter) with [facility] 1. Allergies Allergen Reactions Tape 1"X5yd [Adhesive Tape] Rash Redness. Avoids. Prefers paper tape Labs: WBC COUNT Date Value Ref Range Status 01/11/2023 7.3 3.5 - 10.9 K/uL Final HEMOGLOBIN Date Value Ref Range Status 01/11/2023 13.9 11.2 - 15.7 G/DL Final HEMATOCRIT Date Value Ref Range Status 01/11/2023 40.3 34.0 - 49.0 % Final PLATELET COUNT Date Value Ref Range Status 01/11/2023 252 140 - 400 K/uL Final SODIUM Date Value Ref Range Status 01/11/2023 141 135 - 148 MEQ/L Final 10/21/2020 135 135 - 148 MEQ/L POTASSIUM Date Value Ref Range Status 01/11/2023 4.7 3.4 - 5.3 MEQ/L Final CHLORIDE Date Value Ref Range Status 01/11/2023 103 96 - 110 MEQ/L Final CARBON DIOXIDE Date Value Ref Range Status 01/11/2023 24 19 - 32 MEQ/L Final GLUCOSE Date Value Ref Range Status 01/11/2023 207 70 - 99 MG/DL Final Comment: (NOTE) The [place] [employer] recommends the following guidelines: MG/DL <100 = NORMAL GLUCOSE 100-125= IMPAIRED FASTING GLUCOSE >=126 = PROVISIONAL DIAGNOSIS OF DIABETES ADA Workgroup Report, Diabetic Care, volume 40August 2016 CREATININE Date Value Ref Range Status 01/11/2023 0.9 0.5 - 1.2 MG/DL Final BUN Date Value Ref Range Status 01/11/2023 28 3 - 29 MG/DL Final CALCIUM Date Value Ref Range Status 01/11/2023 10.3 8.5 - 10.5 MG/DL Final ALBUMIN, SERUM Date Value Ref Range Status 10/16/2020 2.9 3.5 - 5.2 GM/DL PROTHROMBIN TIME Date Value Ref Range Status 05/15/2019 13.0 11.7 - 13.9 SECONDS PARTIAL THROMBOPLASTIN TIME Date Value Ref Range Status 05/15/2019 23.3 24.5 - 35.2 SECONDS INR (more content not included)... Normal [facility] NURSING NOTEon 09-05-2023 Supervisor [employer] Authentication Interface Message Text [facility] [address] [place] [address] Physician Orders Patient Name: Hanna Nelson Start Date: 08/27/2023 Order: [facility] Primary Dressing Collagens;Alginate;Antimicr obial 08/22/23 1324 Secondary Dressing Foam Dressing-Silicone Boarder 08/22/23 1324 Change Dressing M-W-F Physician NPI and Signature: Dr. Estiven Mcfadden, VIPUL NPI# [id number] [facility] CARE PLANon 08-22-2023 Supervisor [employer]ing [employer] Tem[employer] Authentication Interface Message Text Progressing. [facility] MEDICAL STAFFon 08-22-2023 Supervisor Forming And Tempering Authentication Interface Message Text [facility] 08/22/2023 Patient Name: Hanna Nelson : 1940 AGE: [age] year old GENDER: Female Chief Complaint/Reason for Visit Hanna Nelson is a 81 year old female who presents today for wound care of chronic wound on the bottom of the right foot. No changes from previous. 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 -No signs of infection. Monitor off antibiotics. -Continue with diabetic shoe with offloading insert at all times while walking. 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 -Continue with local wound care -Did discuss that we could do a Charcot planing on the area in the future if the area remains persistent. Discussed that being an outpatient surgery with light anesthesia. -Any signs of infection before the next visit go to the emergency room -Follow-up 2 weeks Patient's Problem List Patient Active Problem List Diagnosis Essential hypertension Type 2 diabetes mellitus (HC CODE) Arthritis Hypothyroidism Palpitation Hyponatremia Spinal stenosis of lumbar region with neurogenic claudication Paroxysmal atrial fibrillation (HC CODE) Postoperative ileus (HC CODE) Paraparesis (HC CODE) Ataxia Cellulitis Peripheral vascular disease (HC CODE) Lower extremity ulceration, right, with fat layer exposed (HC CODE) Education regarding disease process, wound care, pressure relief and elevation discussed with patient today. Time spent with patient and patient care related issues in addition to coordination of patient's care with other physicians/agencies: Discharge Instructions were given to patient, significant other, caregiver, or DPOHC. Follow-up Wound Right Leg Medial Blister (bullae) (Active) Wound Right Foot Plantar (Active) Dressing Status / Change Moist with drainage 08/22/23 1300 Wound Bed Appearance Red 08/22/23 1300 Drainage Amount Scant 08/22/23 1300 Drainage Appearance Serous 08/22/23 1300 Odor None 08/22/23 1300 Wound cleanser Normal saline 08/22/23 1300 Specific Procedures Other (Comment) 07/25/23 1331 Advanced Wound Intervention Photos 08/22/23 1300 Wound length (cm) 0.3 cm 08/22/23 1324 Wound width (cm) 0.3 cm 08/22/23 1324 Wound depth (cm) 0.15 cm 08/22/23 1324 Wound Surface Area (length x width) 0.09 08/22/23 1324 Undermining / Tunneling No 03/07/23 1300 Periwound (surrounding) tissue Calloused;Macerated 08/22/23 1300 Primary Dressing Collagens;Alginate;Antimicr obial 08/22/23 1324 Secondary Dressing Foam Dressing-Silicone Boarder 08/22/23 1324 Objective Vitals Signs: Visit Vitals BP 136/72 Pulse 80 Temp 96.7 F (35.9 C) Resp 16 OB Status Postmenopausal Smoking Status Former General Exam GENERAL: The patient is in no acute distress. RESP: Nonlabored breathing. No distress. Normal respirations. ABD: benign EXTREMITIES: No signs of infection to the right lower extremity Medications and Allergies No outpatient medications have been marked as taking for the 08/22/23 encounter (Hospital Encounter) with [facility] RO[facility] 1. Allergies Allergen Reactions Tape 1"X5yd [Adhesive Tape] Rash Redness. Avoids. Prefers paper tape Labs: WBC COUNT Date Value Ref Range Status 01/11/2023 7.3 3.5 - 10.9 K/uL Final HEMOGLOBIN Date Value Ref Range Status 01/11/2023 13.9 11.2 - 15.7 G/DL Final HEMATOCRIT Date Value Ref Range Status 01/11/2023 40.3 34.0 - 49.0 % Final PLATELET COUNT Date Value Ref Range Status 01/11/2023 252 140 - 400 K/uL Final SODIUM Date Value Ref Range Status 01/11/2023 141 135 - 148 MEQ/L Final 10/21/2020 135 135 - 148 MEQ/L POTASSIUM Date Value Ref Range Status 01/11/2023 4.7 3.4 - 5.3 MEQ/L Final CHLORIDE Date Value Ref Range Status 01/11/2023 103 96 - 110 MEQ/L Final CARBON DIOXIDE Date Value Ref Range Status 01/11/2023 24 19 - 32 MEQ/L Final GLUCOSE Date Value Ref Range Status 01/11/2023 207 70 - 99 MG/DL Final Comment: (NOTE) The [place] [employer] recommends the following guidelines: MG/DL <100 = NORMAL GLUCOSE 100-125= IMPAIRED FASTING GLUCOSE >=126 = PROVISIONAL DIAGNOSIS OF DIABETES ADA Workgroup Report, Diabetic Care, volume 40, August 2016 CREATININE Date Value Ref Range Status 01/11/2023 0.9 0.5 - 1.2 MG/DL Final BUN Date Value Ref Range Status 01/11/2023 28 3 - 29 MG/DL Final CALCIUM Date Value Ref Range Status 01/11/2023 10.3 8.5 - 10.5 MG/DL Final ALBUMIN, SERUM Date (more content not included)... Normal [facility] NURSING NOTEon 08-22-2023 Supervisor [employer]ing [employer]pering Authentication Interface Message Text [facility] [address] [phone] Physician Orders Patient Name: Hanna Nelson Start Date: 08/27/2023 Order: [facility] Primary Dressing Collagens;Alginate;Antimicr obial 08/22/23 1324 Secondary Dressing Foam Dressing-Silicone Boarder 08/22/23 1324 Return in 1 week Physician NPI and Signature: Dr. Estiven Mcfadden, VIPUL NPI# [id number] Normal [facility] MEDICAL STAFFon 08-01-2023 Supervisor Forming And Tempering Authentication Interface Message Text [facility] 08/01/2023 Patient Name: Hanna Nelson : 1940 AGE: [age] year old GENDER: Female Chief Complaint/Reason for Visit Hanna Nelson is a 81 year old female who presents today for wound care of chronic wound on the bottom of the right foot. No changes from previous. 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 Doing well today Assessment/Dermatologic Exam/Plan Assessment -Right lower extremity ulceration down to subcutaneous tissue (Daniels grade 2) -Charcot foot deformity right foot -Type 2 diabetes mellitus with peripheral neuropathy -Abrasion right foot Plan -Patient was seen, evaluated, and treated today. -No signs of infection. Monitor off antibiotics. -Continue with diabetic shoe with offloading insert at all times while walking. -Wound does appear to be smaller today with less callus buildup -Still waiting to hear from clothing trades workers about new diabetic inserts and shoes and when these will be ready for her -Continue with local wound care -Did discuss that we could do a Charcot planing on the area in the future if the area remains persistent. Discussed that being an outpatient surgery with light anesthesia. -Any signs of infection before the next visit go to the emergency room -Follow-up 3 weeks because patient is going out of town Patient's Problem List Patient Active Problem List Diagnosis Essential hypertension Type 2 diabetes mellitus (HC CODE) Arthritis Hypothyroidism Palpitation Hyponatremia Spinal stenosis of lumbar region with neurogenic claudication Paroxysmal atrial fibrillation (HC CODE) Postoperative ileus (HC CODE) Paraparesis (HC CODE) Ataxia Cellulitis Peripheral vascular disease (HC CODE) Lower extremity ulceration, right, with fat layer exposed (HC CODE) Education regarding disease process, wound care, pressure relief and elevation discussed with patient today. Time spent with patient and patient care related issues in addition to coordination of patient's care with other physicians/agencies: Discharge Instructions were given to patient, significant other, caregiver, or DPOHC. Follow-up Wound Right Leg Medial Blister (bullae) (Active) Wound Right Foot Plantar (Active) Dressing Status / Change Moist with drainage 08/01/23 1300 Wound Bed Appearance Red 08/01/23 1300 Drainage Amount Small 08/01/23 1300 Drainage Appearance Serosanguineous 08/01/23 1300 Odor None 08/01/23 1300 Wound cleanser Normal saline 08/01/23 1300 Specific Procedures Other (Comment) 07/25/23 1331 Advanced Wound Intervention Photos 07/25/23 1300 Wound length (cm) 0.8 cm 08/01/23 1355 Wound width (cm) 0.6 cm 08/01/23 1355 Wound depth (cm) 0.3 cm 08/01/23 1355 Wound Surface Area (length x width) 0.48 08/01/23 1355 Undermining / Tunneling No 03/07/23 1300 Periwound (surrounding) tissue Calloused 08/01/23 1300 Primary Dressing Collagens;Alginate;Antimicr obial 08/01/23 1355 Secondary Dressing Foam Dressing-Silicone Boarder 08/01/23 135 Objective Vitals Signs: Visit Vitals BP 138/67 Pulse 73 Temp 96.3 F (35.7 C) Resp 16 OB Status Postmenopausal Smoking Status Former General Exam GENERAL: The patient is in no acute distress. RESP: Nonlabored breathing. No distress. Normal respirations. ABD: benign EXTREMITIES: No signs of infection to the right lower extremity Medications and Allergies No outpatient medications have been marked as taking for the 08/01/23 encounter (Hospital Encounter) with [facility]. Allergies Allergen Reactions Tape 1"X5yd [Adhesive Tape] Rash Redness. Avoids. Prefers paper tape Labs: WBC COUNT Date Value Ref Range Status 01/11/2023 7.3 3.5 - 10.9 K/uL Final HEMOGLOBIN Date Value Ref Range Status 01/11/2023 13.9 11.2 - 15.7 G/DL Final HEMATOCRIT Date Value Ref Range Status 01/11/2023 40.3 34.0 - 49.0 % Final PLATELET COUNT Date Value Ref Range Status 01/11/2023 252 140 - 400 K/uL Final SODIUM Date Value Ref Range Status 01/11/2023 141 135 - 148 MEQ/L Final 10/21/2020 135 135 - 148 MEQ/L POTASSIUM Date Value Ref Range Status 01/11/2023 4.7 3.4 - 5.3 MEQ/L Final CHLORIDE Date Value Ref Range Status 01/11/2023 103 96 - 110 MEQ/L Final CARBON DIOXIDE Date Value Ref Range Status 01/11/2023 24 19 - 32 MEQ/L Final GLUCOSE Date Value Ref Range Status 01/11/2023 207 70 - 99 MG/DL Final Comment: (NOTE) The [place] recommends the following guidelines: MG/DL <100 = NORMAL GLUCOSE 100-125= IMPAIRED FASTING GLUCOSE >=126 = PROVISIONAL DIAGNOSIS OF DIABETES ADA Workgroup Report, Diabetic Care, volume 40, August 2016 CREATININE Date Value Ref Range Status 01/11/2023 0.9 0.5 - 1.2 MG/DL Final BUN Date Value Ref Range Status 01/11/2023 28 3 - 29 MG/DL Final CALCIUM Date Value Ref Range (more content not included)... Normal [facility] CARE PLANon 07-25-2023 Supervisor [employer]ing [employer]pering Authentication Interface Message Text Progressing. Normal [facility] MEDICAL STAFFon 07-25-2023 Supervisor Forming And Tempering Authentication Interface Message Text [facility] 07/25/2023 Patient Name: Hanna Nelson : 1940 AGE: [age] year old GENDER: Female Chief Complaint/Reason for Visit Hanna Nelson is a 81 year old female who presents today for wound care of chronic wound on the bottom of the right foot. No changes from previous. 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 -No signs of infection. Monitor off antibiotics. -Continue with diabetic shoe with offloading insert at all times while walking. -Wound does appear to be smaller today with less callus buildup -Still waiting to hear from clothing trades workers about new diabetic inserts and shoes and when these will be ready for her -Continue with local wound care -Did discuss that we could do a Charcot planing on the area in the future if the area remains persistent. Discussed that being an outpatient surgery with light anesthesia. -Any signs of infection before the next visit go to the emergency room -Follow-up 1 weeks Patient's Problem List Patient Active Problem List Diagnosis Essential hypertension Type 2 diabetes mellitus (HC CODE) Arthritis Hypothyroidism Palpitation Hyponatremia Spinal stenosis of lumbar region with neurogenic claudication Paroxysmal atrial fibrillation (HC CODE) Postoperative ileus (HC CODE) Paraparesis (HC CODE) Ataxia Cellulitis Peripheral vascular disease (HC CODE) Lower extremity ulceration, right, with fat layer exposed (HC CODE) Education regarding disease process, wound care, pressure relief and elevation discussed with patient today. Time spent with patient and patient care related issues in addition to coordination of patient's care with other physicians/agencies: Discharge Instructions were given to patient, significant other, caregiver, or DPOHC. Follow-up Current Wound Measurements: Wound Right Leg Medial Blister (bullae) (Active) Wound Right Foot Plantar (Active) Dressing Status / Change Dry Wound Bed Appearance Red 07/11/23 1300 Drainage Amount Scant 07/11/23 1300 Drainage Appearance Red brown 07/11/23 1300 Odor None 07/25/23 1300 Wound cleanser Normal saline 07/25/23 1300 Specific Procedures Other (Comment) 07/25/23 1331 Advanced Wound Intervention Photos 07/25/23 1300 Wound length (cm) 0.2 cm 07/25/23 1331 Wound width (cm) 0.2 cm 07/25/23 1331 Wound depth (cm) 0.05 cm 07/25/23 1331 Wound Surface Area (length x width) 0.04 07/25/23 1331 Undermining / Tunneling No 03/07/23 1300 Periwound (surrounding) tissue Calloused 07/11/23 1300 Primary Dressing Collagens;Alginate;Antimicr obial 07/11/23 1400 Secondary Dressing Foam Dressing-Silicone Boarder 07/11/23 1400 Objective Vitals Signs: Visit Vitals BP 151/71 Pulse 74 Temp 97 F (36.1 C) Resp 16 OB Status Postmenopausal Smoking Status Former General Exam GENERAL: The patient is in no acute distress. RESP: Nonlabored breathing. No distress. Normal respirations. ABD: benign EXTREMITIES: No signs of infection to the right lower extremity Medications and Allergies No outpatient medications have been marked as taking for the 07/25/23 encounter (Hospital Encounter) with [facility]. Allergies Allergen Reactions Tape 1"X5yd [Adhesive Tape] Rash Redness. Avoids. Prefers paper tape Labs: WBC COUNT Date Value Ref Range Status 01/11/2023 7.3 3.5 - 10.9 K/uL Final HEMOGLOBIN Date Value Ref Range Status 01/11/2023 13.9 11.2 - 15.7 G/DL Final HEMATOCRIT Date Value Ref Range Status 01/11/2023 40.3 34.0 - 49.0 % Final PLATELET COUNT Date Value Ref Range Status 01/11/2023 252 140 - 400 K/uL Final SODIUM Date Value Ref Range Status 01/11/2023 141 135 - 148 MEQ/L Final 10/21/2020 135 135 - 148 MEQ/L POTASSIUM Date Value Ref Range Status 01/11/2023 4.7 3.4 - 5.3 MEQ/L Final CHLORIDE Date Value Ref Range Status 01/11/2023 103 96 - 110 MEQ/L Final CARBON DIOXIDE Date Value Ref Range Status 01/11/2023 24 19 - 32 MEQ/L Final GLUCOSE Date Value Ref Range Status 01/11/2023 207 70 - 99 MG/DL Final Comment: (NOTE) The [place] [employer] recommends the following guidelines: MG/DL <100 = NORMAL GLUCOSE 100-125= IMPAIRED FASTING GLUCOSE >=126 = PROVISIONAL DIAGNOSIS OF DIABETES ADA Workgroup Report, Diabetic Care, volume 40, August 2016 CREATININE Date Value Ref Range Status 01/11/2023 0.9 0.5 - 1.2 MG/DL Final BUN Date Value Ref Range Status 01/11/2023 28 3 - 29 MG/DL Final CALCIUM Date Value Ref Range Status 01/11/2023 10.3 8.5 - 10.5 MG/DL Final ALBUMIN, SER (more content not included)... Normal [facility] CARE PLANon 07-11-2023 Supervisor [employer]ing [employer]pering Authentication Interface Message Text Progressing. Normal [facility] MEDICAL STAFFon 07-11-2023 Supervisor Forming And Tempering Authentication Interface Message Text [facility] 07/11/2023 Patient Name: Hanna Nelson : 1940 AGE: [age] year old GENDER: Female Chief Complaint/Reason for Visit Hanna Nelson is a 81 year old female who presents today for wound care of chronic wound on the bottom of the right foot. No changes from previous. 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 -No signs of infection. Monitor off antibiotics. -Continue with diabetic shoe with offloading insert at all times while walking. -Continue with current diabetic shoe and peg assist offloading insert. Patient says her clothing trades workers modify this little bit as well -Still waiting to hear back from her clothing trades workers when her diabetic shoes will be ready -Continue with local wound care -Did discuss that we could do a Charcot planing on the area in the future if the area remains persistent. Discussed that being an outpatient surgery with light anesthesia. -Any signs of infection before the next visit go to the emergency room -Follow-up 2 weeks Patient's Problem List Patient Active Problem List Diagnosis Essential hypertension Type 2 diabetes mellitus (HC CODE) Arthritis Hypothyroidism Palpitation Hyponatremia Spinal stenosis of lumbar region with neurogenic claudication Paroxysmal atrial fibrillation (HC CODE) Postoperative ileus (HC CODE) Paraparesis (HC CODE) Ataxia Cellulitis Peripheral vascular disease (HC CODE) Lower extremity ulceration, right, with fat layer exposed (HC CODE) Education regarding disease process, wound care, pressure relief and elevation discussed with patient today. Time spent with patient and patient care related issues in addition to coordination of patient's care with other physicians/agencies: Discharge Instructions were given to patient, significant other, caregiver, or DPOHC. Follow-up Current Wound Measurements: Wound Right Leg Medial Blister (bullae) (Active) Wound Right Foot Plantar (Active) Dressing Status / Change Moist with drainage 07/11/23 1300 Wound Bed Appearance Red 07/11/23 1300 Drainage Amount Scant 07/11/23 1300 Drainage Appearance Red brown 07/11/23 1300 Odor None 07/11/23 1300 Wound cleanser Wound cleanser 07/11/23 1300 Advanced Wound Intervention Photos 07/11/23 1300 Wound length (cm) 0.2 cm 07/11/23 1358 Wound width (cm) 0.2 cm 07/11/23 1358 Wound depth (cm) 0.1 cm 07/11/23 1358 Wound Surface Area (length x width) 0.04 07/11/23 1358 Undermining / Tunneling No 03/07/23 1300 Periwound (surrounding) tissue Calloused 07/11/23 1300 Primary Dressing Collagens;Alginate;Antimicr obial 07/11/23 1400 Secondary Dressing Foam Dressing-Silicone Boarder 07/11/23 1400 Objective Vitals Signs: Visit Vitals BP 146/74 Pulse 108 Temp 97.3 F (36.3 C) Resp 16 OB Status Postmenopausal Smoking Status Former General Exam GENERAL: The patient is in no acute distress. RESP: Nonlabored breathing. No distress. Normal respirations. ABD: benign EXTREMITIES: No signs of infection to the right lower extremity Medications and Allergies No outpatient medications have been marked as taking for the 07/11/23 encounter (Hospital Encounter) with [facility]. Allergies Allergen Reactions Tape 1"X5yd [Adhesive Tape] Rash Redness. Avoids. Prefers paper tape Labs: WBC COUNT Date Value Ref Range Status 01/11/2023 7.3 3.5 - 10.9 K/uL Final HEMOGLOBIN Date Value Ref Range Status 01/11/2023 13.9 11.2 - 15.7 G/DL Final HEMATOCRIT Date Value Ref Range Status 01/11/2023 40.3 34.0 - 49.0 % Final PLATELET COUNT Date Value Ref Range Status 01/11/2023 252 140 - 400 K/uL Final SODIUM Date Value Ref Range Status 01/11/2023 141 135 - 148 MEQ/L Final 10/21/2020 135 135 - 148 MEQ/L POTASSIUM Date Value Ref Range Status 01/11/2023 4.7 3.4 - 5.3 MEQ/L Final CHLORIDE Date Value Ref Range Status 01/11/2023 103 96 - 110 MEQ/L Final CARBON DIOXIDE Date Value Ref Range Status 01/11/2023 24 19 - 32 MEQ/L Final GLUCOSE Date Value Ref Range Status 01/11/2023 207 70 - 99 MG/DL Final Comment: (NOTE) The [place] [employer] recommends the following guidelines: MG/DL <100 = NORMAL GLUCOSE 100-125= IMPAIRED FASTING GLUCOSE >=126 = PROVISIONAL DIAGNOSIS OF DIABETES ADA Workgroup Report, Diabetic Care, volume 40August 2016 CREATININE Date Value Ref Range Status 01/11/2023 0.9 0.5 - 1.2 MG/DL Final BUN Date Value Ref Range Status 01/11/2023 28 3 - 29 MG/DL Final CALCIUM Date Value Ref Range Status 01/11/2023 10.3 8.5 - 10.5 MG/DL Final (more content not included)... Normal [facility] MEDICAL STAFFon 06-20-2023 Supervisor Forming And Tempering Authentication Interface Message Text [facility] 06/20/2023 Patient Name: Hanna Nelson : 1940 AGE: [age] year old GENDER: Female Chief Complaint/Reason for Visit Hanna Nelson is a 81 year old female who presents today for wound care of chronic wound on the bottom of the right foot. No changes from previous. Assessment/Dermatologic Exam/Plan Assessment -Right lower extremity ulceration down to subcutaneous tissue (Daniels grade 2) -Charcot foot deformity right foot -Type 2 diabetes mellitus with peripheral neuropathy -Abrasion right foot Plan -Patient was seen, evaluated, and treated today. -No signs of infection. Monitor off antibiotics. -Continue with diabetic shoe with offloading insert at all times while walking. -Continue with current diabetic shoe and peg assist offloading insert. 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 -Continue with local wound care -Did discuss that we could do a Charcot planing on the area in the future if the area remains persistent. Discussed that being an outpatient surgery with light anesthesia. -Any signs of infection before the next visit go to the emergency room -Follow-up 2 weeks Patient's Problem List Patient Active Problem List Diagnosis Essential hypertension Type 2 diabetes mellitus (HC CODE) Arthritis Hypothyroidism Palpitation Hyponatremia Spinal stenosis of lumbar region with neurogenic claudication Paroxysmal atrial fibrillation (HC CODE) Postoperative ileus (HC CODE) Paraparesis (HC CODE) Ataxia Cellulitis Peripheral vascular disease (HC CODE) Lower extremity ulceration, right, with fat layer exposed (HC CODE) Education regarding disease process, wound care, pressure relief and elevation discussed with patient today. Time spent with patient and patient care related issues in addition to coordination of patient's care with other physicians/agencies: Discharge Instructions were given to patient, significant other, caregiver, or DPOHC. Follow-up Current Wound Measurements: Wound Right Leg Medial Blister (bullae) (Active) Wound Right Foot Plantar (Active) Dressing Status / Change Moist with drainage 06/20/23 1300 Wound Bed Appearance Red 06/20/23 1300 Drainage Amount Moderate 06/20/23 1300 Drainage Appearance Serosanguineous 06/20/23 1300 Odor None 06/20/23 1300 Wound cleanser Normal saline 06/20/23 1300 Advanced Wound Intervention Photos 06/20/23 1300 Wound length (cm) 0.3 cm 06/20/23 1343 Wound width (cm) 0.2 cm 06/20/23 134 Wound depth (cm) 0.15 cm 06/20/23 134 Wound Surface Area (length x width) 0.06 06/20/23 1343 Undermining / Tunneling No 03/07/23 1300 Periwound (surrounding) tissue Calloused 06/20/23 1300 Primary Dressing Collagens;Alginate;Antimicr obial 06/20/23 134 Secondary Dressing Foam Dressing-Silicone Boarder 06/20/23 134 Pressure Ulcer Data:. Objective Vitals Signs: Visit Vitals BP 166/72 Pulse 77 Temp 96.3 F (35.7 C) Resp 16 OB Status Postmenopausal Smoking Status Former General Exam GENERAL: The patient is in no acute distress. RESP: Nonlabored breathing. No distress. Normal respirations. ABD: benign EXTREMITIES: No signs of infection to the right lower extremity Medications and Allergies No outpatient medications have been marked as taking for the 06/20/23 encounter (Hospital Encounter) with [facility]. Allergies Allergen Reactions Tape 1"X5yd [Adhesive Tape] Rash Redness. Avoids. Prefers paper tape Labs: WBC COUNT Date Value Ref Range Status 01/11/2023 7.3 3.5 - 10.9 K/uL Final HEMOGLOBIN Date Value Ref Range Status 01/11/2023 13.9 11.2 - 15.7 G/DL Final HEMATOCRIT Date Value Ref Range Status 01/11/2023 40.3 34.0 - 49.0 % Final PLATELET COUNT Date Value Ref Range Status 01/11/2023 252 140 - 400 K/uL Final SODIUM Date Value Ref Range Status 01/11/2023 141 135 - 148 MEQ/L Final 10/21/2020 135 135 - 148 MEQ/L POTASSIUM Date Value Ref Range Status 01/11/2023 4.7 3.4 - 5.3 MEQ/L Final CHLORIDE Date Value Ref Range Status 01/11/2023 103 96 - 110 MEQ/L Final CARBON DIOXIDE Date Value Ref Range Status 01/11/2023 24 19 - 32 MEQ/L Final GLUCOSE Date Value Ref Range Status 01/11/2023 207 70 - 99 MG/DL Final Comment: (NOTE) The [place] [employer] recommends the following guidelines: MG/DL <100 = NORMAL GLUCOSE 100-125= IMPAIRED FASTING GLUCOSE >=126 = PROVISIONAL DIAGNOSIS OF DIABETES ADA Workgroup Report, Diabetic Care, volume 40, August 2016 CREATININE Date Value Ref Range Status 01/11/2023 0.9 0.5 - 1.2 MG/DL Final BUN Date Value Ref Range Status 01/11/2023 28 3 - 29 MG/DL Final CALCIUM Date Value Ref Range Status 01/11/2023 10.3 8.5 - 10.5 MG/DL Final ALBUMIN, SERUM Date Value Ref Range Status 10/16/2020 2.9 3.5 - 5.2 GM/DL PROTHROMBIN (more content not included)... Normal [facility] CARE PLANon 06-06-2023 Supervisor [employer]ing [employer] Tempering Authentication Interface Message Text Progressing. Normal [facility] MEDICAL STAFFon 06-06-2023 Supervisor Forming And Tempering Authentication Interface Message Text [facility] 06/06/2023 Patient Name: Hanna Nelson : 1940 AGE: [age] year old GENDER: Female Chief Complaint/Reason for Visit Hanna Nelson is a 81 year old female who presents today for wound care of chronic wound on the bottom of the right foot. No changes from previous. Still not sure when she is going to be able to get her new diabetic shoes. [employer] said it could take some time for them to be ready Assessment/Dermatologic Exam/Plan Assessment -Right lower extremity ulceration down to subcutaneous tissue (Daniels grade 2) -Charcot foot deformity right foot -Type 2 diabetes mellitus with peripheral neuropathy -Abrasion right foot Plan -Patient was seen, evaluated, and treated today. -No signs of infection. Monitor off antibiotics. -Continue with diabetic shoe with offloading insert at all times while walking. -Continue with current diabetic shoe and peg assist offloading insert. 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 -Continue with local wound care -Did discuss that we could do a Charcot planing on the area in the future if the area remains persistent. Discussed that being an outpatient surgery with light anesthesia. -Any signs of infection before the next visit go to the emergency room -Follow-up 2 weeks Patient's Problem List Patient Active Problem List Diagnosis Essential hypertension Type 2 diabetes mellitus (HC CODE) Arthritis Hypothyroidism Palpitation Hyponatremia Spinal stenosis of lumbar region with neurogenic claudication Paroxysmal atrial fibrillation (HC CODE) Postoperative ileus (HC CODE) Paraparesis (HC CODE) Ataxia Cellulitis Peripheral vascular disease (HC CODE) Lower extremity ulceration, right, with fat layer exposed (HC CODE) Education regarding disease process, wound care, pressure relief and elevation discussed with patient today. Time spent with patient and patient care related issues in addition to coordination of patient's care with other physicians/agencies: Discharge Instructions were given to patient, significant other, caregiver, or DPOHC. Follow-up Current Wound Measurements: Wound Right Leg Medial Blister (bullae) (Active) Wound Right Foot Plantar (Active) Dressing Status / Change Moist with drainage 06/06/23 1300 Wound Bed Appearance Red 06/06/23 1300 Drainage Amount Moderate 06/06/23 1300 Drainage Appearance Bloody 06/06/23 1300 Odor None 06/06/23 1300 Wound cleanser Normal saline 06/06/23 1300 Advanced Wound Intervention Photos 04/18/23 1336 Wound length (cm) 0.3 cm 06/06/23 1342 Wound width (cm) 0.4 cm 06/06/23 1342 Wound depth (cm) 0.25 cm 06/06/23 1342 Wound Surface Area (length x width) 0.12 06/06/23 1342 Undermining / Tunneling No 03/07/23 1300 Periwound (surrounding) tissue Macerated;Calloused 06/06/23 1300 Primary Dressing Collagens;Alginate;Antimicr obial 06/06/23 1342 Secondary Dressing Foam Dressing-Silicone Boarder 06/06/23 1342 Pressure Ulcer Data:. Objective Vitals Signs: Visit Vitals BP 141/85 Pulse 77 Temp 97.3 F (36.3 C) Resp 16 OB Status Postmenopausal Smoking Status Former General Exam GENERAL: The patient is in no acute distress. RESP: Nonlabored breathing. No distress. Normal respirations. ABD: benign EXTREMITIES: No signs of infection to the right lower extremity Medications and Allergies No outpatient medications have been marked as taking for the 06/06/23 encounter (Hospital Encounter) with [facility] 2. Allergies Allergen Reactions Tape 1"X5yd [Adhesive Tape] Rash Redness. Avoids. Prefers paper tape Labs: WBC COUNT Date Value Ref Range Status 01/11/2023 7.3 3.5 - 10.9 K/uL Final HEMOGLOBIN Date Value Ref Range Status 01/11/2023 13.9 11.2 - 15.7 G/DL Final HEMATOCRIT Date Value Ref Range Status 01/11/2023 40.3 34.0 - 49.0 % Final PLATELET COUNT Date Value Ref Range Status 01/11/2023 252 140 - 400 K/uL Final SODIUM Date Value Ref Range Status 01/11/2023 141 135 - 148 MEQ/L Final 10/21/2020 135 135 - 148 MEQ/L POTASSIUM Date Value Ref Range Status 01/11/2023 4.7 3.4 - 5.3 MEQ/L Final CHLORIDE Date Value Ref Range Status 01/11/2023 103 96 - 110 MEQ/L Final CARBON DIOXIDE Date Value Ref Range Status 01/11/2023 24 19 - 32 MEQ/L Final GLUCOSE Date Value Ref Range Status 01/11/2023 207 70 - 99 MG/DL Final Comment: (NOTE) The [place] recommends the following guidelines: MG/DL <100 = NORMAL GLUCOSE 100-125= IMPAIRED FASTING GLUCOSE >=126 = PROVISIONAL DIAGNOSIS OF DIABETES ADA Workgroup Report, Diabetic Care, volume 40, August 2016 CREATININE Date Value Ref Range Status 01/11/2023 0.9 0.5 - 1.2 MG/DL Final BUN Date Value Ref Range Status 01/11/2023 28 3 - 29 MG/DL Final CALCIUM Date Value Ref Range (more content not included)... Normal [facility] NURSING NOTEon 05-31-2023 Supervisor [employer]ing [employer]pering Authentication Interface Message Text Why are you here today? Annual visit Is there anything you want the provider to specifically discuss with you today? Have you had any new cardiac symptoms? (chest pain/SOB/palpitations/leg swelling/ bleeding/ claudication/presyncope/syn cope) Yes [x] Describe symptoms : rapid heart rate when laying on at night No [] Do you need any refills? Yes [] No [x] Is your pharmacy information correct? Yes [x] Did you bring in your medications today? (please encourage patient to bring meds/med list for future visits) Yes [] No [x] Have you had any hospitalizations or cardiac testing since your last visit Yes [] No [x] Normal Provider Locations PATIENT INSTRUCTIONSon 05-31 Supervisor [employer]ing [employer] Tempering Authentication Interface Message Text Thank you for choosing [facility] for your cardiology care. During your visit today, we reviewed and confirmed your cardiac medications along with medication prescribed by your other healthcare team members. Please be sure to discuss any changes to medication with your providers. Please bring a list of ALL medications (or the bottles) with you to EVERY appointment. Also include vitamins and [id number] medications. Did your provider order testing today? If yes, then you will receive your results in three possible ways. You can receive a [employer] message, a phone call, or letter in the mail. Please note, if you are an active [employer] user, some of your testing will be available within 1-2 days. If blood work was ordered at your visit, an order has already been placed to [facility]. Please contact your nearest [facility] location to schedule an appointment or visit [email or web address]. If we are unable to schedule your testing, you are welcome to contact central scheduling to make those appointment(s) at [phone]. Your provider has made a recommendation for your future appointment. If you have not yet scheduled, you are welcome to contact us, and we will be pleased to assist you. Please note that our office hours are Saturday-Saturday 8:00 am-4:30 pm. Please keep all follow up appointments and we look forward to seeing you. Finally, please know that it is good for your heart to exercise and follow a healthy, low-fat diet as advised by your physician and health care providers. Your feedback matters! You may be receiving a survey about your visit today via text or e-mail. We strive to give excellent service. Thank you. If you are experiencing a medical emergency, please call 911 immediately. It's easy to register for a [employer] account if you don't already have one. With a [employer] account you can manage your health record, view test results, schedule appointments and more. Visit [email or web address] to request your [employer] account today. Dr. Wilson's clinical staff can be reached at the following phone number: [phone] Press Option 2 for Clinical Staff Then Press Option 4 again for Gin PIERSON CONTINUE CURRENT MEDICATIONS FOLLOW UP WITH DR. HERNANDEZ IN 6 MONTHS Normal Provider Locations PROGRESS NOTESon 05-31-2023 Supervisor [employer]ing [employer] Authentication Interface Message Text [facility] [address] [facility] [id number] Office Note 05/31/2023 Patient Name: Hanna Nelson : 1940 Assessment/Plan ICD-10-CM ICD-9-CM 1. Paroxysmal atrial fibrillation (HC CODE) I48.0 427.31 EKG Standard 2. Palpitation R00.2 785.1 3. Essential hypertension I10 401.9 Subjective Hanna is an 81-year-old female with a history of paroxysmal atrial fibrillation on Eliquis, DM 2, dyslipidemia, hypothyroidism on supplementation. Today, 05/31/2023, The patient denies chest pain, shortness of breath, palpitations, syncope, or near syncope. BP and HR controlled. NSR per EKG with PACs similar to prior tracings. Remains on eliquis for anticoagulation, denies any bleeding concerns. Reports LE edema that worsens during the day and improves overnight. Reports this is stable and unchanged for her. Plan At this time, will continue current medications. No additional cardiac testing. Lipids managed by PCP, has upcoming labs. Pt will follow up in 6 months unless problems arise in the interim. Weight management and counseling: Estimated body mass index is 28.98 kg/m? as calculated from the following: Height as of this encounter: 1.796 m (5' 10.7"). Weight as of this encounter: 93.4 kg (206 lb).. CMS Normal Parameters: Age 18 years and older BMI =>18.5 and <25kg/m2 This was discussed with her. Body mass index is 28.98 kg/m?.: overweight, BMI management plan is: POC weight counseling and POC exercise counseling. Orders Placed This Encounter EKG Standard (Back Office) Order Specific Question: Release to patient Answer: Immediate [1] If the patient has a future appointment, it is displayed below: Future Appointments Date Time Provider Department Center 06/06/2023 1:30 PM [facility] 2 [facility] 01/10/2024 9:15 AM Sandi Hernandez, DO [facility] [address] Personal, Family and Social history: Past Medical History: Diagnosis Date Arthritis Generalized Back pain Charcot's arthropathy 2016 Right Foot Ulcer COVID-19 07/26/2020 Diabetes DX- 1996 Type 2- On Metformin Fall 06/30/2017 Laceration to Scalp Hypercholesteremia On Lipitor Hypothyroid On Levothyroxine Irregular heart beat 07/31/2017 1 episode-ST done results negative Neurogenic claudication due to lumbar spinal stenosis October 2017 Peripheral neuropathy On Gabapentin Peripheral vascular disease (HC CODE) 2010 Unspecified essential hypertension On Amlodipine, Lisinopril Past Surgical History: Procedure Laterality Date CARDIAC STRESS TST,COMPLETE 08/01/2017 MVS- Irregular Heart Beat- Results Negative-EF>70% CAUDAL EPIDURAL BLOCK 09/02/2017 ECHO Historical 1987 [facility]- ? Why -Results Good EPIDURAL LUMBAR TRANSFORMINAL Left 03/25/2017 L3-L4 LAMINECTOMY DECOMPRESSION POSTERIOR 3 LEVEL N/A 10/22/2017 LAMINECTOMY DECOMPRESSION POSTERIOR 3 LEVEL performed by Adolfo Edwards MD at [facility] MAIN OR LIG/TRNSXJ FLP TUBE ABDL/VAG APPR UNI/BI Ligation or Transection of Fallopian Tubes, Unilat or Bilat LUMBAR TRANSFORAMINAL EPIDURAL 04/29/2017 L4-L5 Other Surgical History Left 01/24/2015 Left Foot Metatarsal Head Bone Biopsy per Dr Ann Vasquez @ [facility] Other Surgical History Right 10/17/2015 Irigation W/Sharp Excisional Debridement Right Foot. 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 per Dr Loaiza @ [facility] Other Surgical History 2009 Fractured Hip REMOVAL [facility] WOUND VAC APPLICATION/CHANGE N/A 10/22/2017 WOUND VAC APPLICATION/CHANGE performed by Adolfo Edwards MD at [facility] MAIN OR Social History Socioeconomic History Marital status: Tobacco Use Smoking status: Former Packs/day: 0.50 Years: 7.00 Additional pack years: 0.00 Total pack years: 3.50 Types: Cigarettes Quit date: 08/12/1964 Years since quittin.8 Smokeless tobacco: Never Vaping Use Vaping Use: Never used Substance and Sexual Activity Alcohol use: Yes Alcohol/week: 1.0 standard drink of alcohol Types: 1 Cans of beer per week Comment: monthly Drug use: No Family History Problem Relation Name Age of Onset Diabetes Father Heart Disease Father [place] Hypertension Father Cancer Father Prostate No Known Problems Mother No Known Problems Sister Objective Allergies Allergen Reactions Tape 1"X5yd [Adhesive Tape] Rash Redness. Avoids. Prefers paper tape Admission Date: Medication Sig Dispense Refill Blood Sugar Diagnostic Strip Qd to bid; dispense brand insurance will cover 100 Strip 11 dulaglutide (TRULICITY) 0.75 mg/0.5 mL Pen Injector Inject 0.5 mL subcutaneously every 7 days 2 mL 11 amLODIPine (NORVASC) 5 mg tablet Take 1 Tab by mouth daily 90 Tab 3 apixaban (ELIQUIS) 5 mg tablet Take 1 Tab by mouth two times a day 180 Tab 3 atenoloL ( (more content not included)... Normal Provider Locations CARE PLANon 05-23-2023 Supervisor Forming And Tempering Authentication Interface Message Text Progressing. Normal [facility] MEDICAL STAFFon 05-23-2023 Supervisor Forming And Tempering Authentication Interface Message Text [facility] W[facility] Care Center 05/23/2023 Patient Name: Hanna Nelson : 1940 AGE: [age] year old GENDER: Female Chief Complaint/Reason for Visit Hanna Nelson is a 81 year old female who presents today for wound care of chronic wound on the bottom of the right foot. No changes from previous. 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 She talked to her and said that the patient will need new diabetic shoes and inserts Assessment/Dermatologic Exam/Plan Assessment -Right lower extremity ulceration down to subcutaneous tissue (Daniels grade 2) -Charcot foot deformity right foot -Type 2 diabetes mellitus with peripheral neuropathy -Abrasion right foot Plan -Patient was seen, evaluated, and treated today. -No signs of infection. Monitor off antibiotics. -Continue with diabetic shoe with offloading insert at all times while walking. -I did review the patient's right foot x-ray that I had her get done. Her foot has basically become a bone block with basically no joints in the midfoot or rear foot. Does have a plantar prominence of bone at the area of the wound clinically -I do want her to continue to proceed with getting new shoes and modified inserts. Did discuss that we could do a Charcot planing on the area in the future if the area remains persistent. Discussed that being an outpatient surgery with light anesthesia. -Any signs of infection before the next visit go to the emergency room -Follow-up 2 weeks for recheck and x-ray review Patient's Problem List Patient Active Problem List Diagnosis Essential hypertension Type 2 diabetes mellitus (HC CODE) Arthritis Hypothyroidism Palpitation Hyponatremia Spinal stenosis of lumbar region with neurogenic claudication Paroxysmal atrial fibrillation (HC CODE) Postoperative ileus (HC CODE) Paraparesis (HC CODE) Ataxia Cellulitis Peripheral vascular disease (HC CODE) Lower extremity ulceration, right, with fat layer exposed (HC CODE) Education regarding disease process, wound care, pressure relief and elevation discussed with patient today. Time spent with patient and patient care related issues in addition to coordination of patient's care with other physicians/agencies: Discharge Instructions were given to patient, significant other, caregiver, or DPOHC. Follow-up Current Wound Measurements: Wound Right Leg Medial Blister (bullae) (Active) Wound Right Foot Plantar (Active) Dressing Status / Change Moist with drainage 05/23/23 1300 Wound Bed Appearance Red 05/23/23 1300 Drainage Amount Moderate 05/23/23 1300 Drainage Appearance Serosanguineous 05/23/23 1300 Odor None 05/23/23 1300 Wound cleanser Normal saline 05/23/23 1300 Advanced Wound Intervention Photos 04/18/23 1336 Wound length (cm) 0.3 cm 05/23/23 1354 Wound width (cm) 0.5 cm 05/23/23 1354 Wound depth (cm) 0.15 cm 05/23/23 1354 Wound Surface Area (length x width) 0.15 05/23/23 1354 Undermining / Tunneling No 03/07/23 1300 Periwound (surrounding) tissue Calloused 05/23/23 1300 Primary Dressing Collagens;Alginate;Antimicr obial 05/23/23 1400 Secondary Dressing Foam Dressing-Silicone Boarder;Other (Comment) 05/23/23 1400 Pressure Ulcer Data:. Objective Vitals Signs: Visit Vitals Temp 97.1 F (36.2 C) Resp 16 OB Status Postmenopausal Smoking Status Former General Exam GENERAL: The patient is in no acute distress. RESP: Nonlabored breathing. No distress. Normal respirations. ABD: benign EXTREMITIES: No signs of infection to the right lower extremity Medications and Allergies No outpatient medications have been marked as taking for the 05/23/23 encounter (Hospital Encounter) with [facility] 1. Allergies Allergen Reactions Tape 1"X5yd [Adhesive Tape] Rash Redness. Avoids. Prefers paper tape Labs: WBC COUNT Date Value Ref Range Status 01/11/2023 7.3 3.5 - 10.9 K/uL Final HEMOGLOBIN Date Value Ref Range Status 01/11/2023 13.9 11.2 - 15.7 G/DL Final HEMATOCRIT Date Value Ref Range Status 01/11/2023 40.3 34.0 - 49.0 % Final PLATELET COUNT Date Value Ref Range Status 01/11/2023 252 140 - 400 K/uL Final SODIUM Date Value Ref Range Status 01/11/2023 141 135 - 148 MEQ/L Final 10/21/2020 135 135 - 148 MEQ/L POTASSIUM Date Value Ref Range Status 01/11/2023 4.7 3.4 - 5.3 MEQ/L Final CHLORIDE Date Value Ref Range Status 01/11/2023 103 96 - 110 MEQ/L Final CARBON DIOXIDE Date Value Ref Range Status 01/11/2023 24 19 - 32 MEQ/L Final GLUCOSE Date Value Ref Range Status 01/11/2023 207 70 - 99 MG/DL Final Comment: (NOTE) The [place] [employer] recommends the following guidelines: MG/DL <100 = NORMAL GLUCOSE 100-125= IMPAIRED FASTING GLUCOSE >=126 = PROVISIONAL DIAGNOSIS OF DIABETES ADA Workgroup Report, Diabetic Care, volume 40, August 2016 CREATININE Date Value Ref Range Status 01/11/2023 0.9 0.5 - 1.2 MG/ (more content not included)... Normal [facility] CARE PLANon 05-06-2023 Supervisor Forming And Tempering Authentication Interface Message Text Progressing. Normal [facility] MEDICAL STAFFon 05-06-2023 Supervisor Forming And Tempering Authentication Interface Message Text [facility] Wound Care Center 05/06/2023 Patient Name: Hanna Nelson : 1940 AGE: [age] year old GENDER: Female Chief Complaint/Reason for Visit Hanna Nelson is a 81 year old female who presents today for wound care of chronic wound on the bottom of the right foot. No changes from previous Assessment/Dermatologic Exam/Plan Assessment -Right lower extremity ulceration down to subcutaneous tissue (Daniels grade 2) -Charcot foot deformity right foot -Type 2 diabetes mellitus with peripheral neuropathy -Abrasion right foot Plan -Patient was seen, evaluated, and treated today. -No signs of infection. Monitor off antibiotics. -Continue with diabetic shoe with offloading insert at all times while walking. -Given that wound has been stagnant with respect to healing, I am having the patient go back to her clothing trades workers who originally made her custom diabetic inserts to have them further offloaded to the affected area -Did order updated right foot x-rays today -If not getting any better could consider a Charcot planing type surgery to try to better offload the area on the bottom of the foot to help wound closed and remain closed -Continue with local wound care to the area. -Any signs of infection before the next visit go to the emergency room -Follow-up 2 weeks for recheck and x-ray review Patient's Problem List Patient Active Problem List Diagnosis ? Essential hypertension ? Type 2 diabetes mellitus (HC CODE) ? Arthritis ? Hypothyroidism ? Palpitation ? Hyponatremia ? Spinal stenosis of lumbar region with neurogenic claudication ? Paroxysmal atrial fibrillation (HC CODE) ? Postoperative ileus (HC CODE) ? Paraparesis (HC CODE) ? Ataxia ? Cellulitis ? Peripheral vascular disease (HC CODE) ? Lower extremity ulceration, right, with fat layer exposed (HC CODE) Education regarding disease process, wound care, pressure relief and elevation discussed with patient today. Time spent with patient and patient care related issues in addition to coordination of patient's care with other physicians/agencies: Discharge Instructions were given to patient, significant other, caregiver, or DPOHC. Follow-up Current Wound Measurements: Wound Right Leg Medial Blister (bullae) (Active) Wound Right Foot Plantar (Active) Dressing Status / Change Moist with drainage 05/06/23 1300 Wound Bed Appearance Red 05/06/23 1300 Drainage Amount Moderate 05/06/23 1300 Drainage Appearance Serosanguineous 05/06/23 1300 Odor None 04/18/23 1336 Wound cleanser Normal saline 05/06/23 1300 Advanced Wound Intervention Photos 04/18/23 1336 Wound length (cm) 0.3 cm 05/06/23 1352 Wound width (cm) 0.3 cm 05/06/23 1352 Wound depth (cm) 0.2 cm 05/06/23 1352 Wound Surface Area (length x width) 0.09 05/06/23 1352 Undermining / Tunneling No 03/07/23 1300 Periwound (surrounding) tissue Calloused 05/06/23 1300 Primary Dressing Collagens;Alginate;Antimicr obial 05/06/23 1352 Secondary Dressing Foam Dressing-Silicone Boarder 05/06/23 1352 Pressure Ulcer Data:. Objective Vitals Signs: Visit Vitals BP 146/67 Pulse 80 Temp 96.7 F (35.9 C) Resp 14 OB Status Postmenopausal Smoking Status Former General Exam GENERAL: The patient is in no acute distress. RESP: Nonlabored breathing. No distress. Normal respirations. ABD: benign EXTREMITIES: No signs of infection to the right lower extremity Medications and Allergies No outpatient medications have been marked as taking for the 05/06/23 encounter (Hospital Encounter) with [facility] ROOM 1. Allergies Allergen Reactions ? Tape 1"X5yd [Adhesive Tape] Rash Redness. Avoids. Prefers paper tape Labs: WBC COUNT Date Value Ref Range Status 01/11/2023 7.3 3.5 - 10.9 K/uL Final HEMOGLOBIN Date Value Ref Range Status 01/11/2023 13.9 11.2 - 15.7 G/DL Final HEMATOCRIT Date Value Ref Range Status 01/11/2023 40.3 34.0 - 49.0 % Final PLATELET COUNT Date Value Ref Range Status 01/11/2023 252 140 - 400 K/uL Final SODIUM Date Value Ref Range Status 01/11/2023 141 135 - 148 MEQ/L Final 10/21/2020 135 135 - 148 MEQ/L POTASSIUM Date Value Ref Range Status 01/11/2023 4.7 3.4 - 5.3 MEQ/L Final CHLORIDE Date Value Ref Range Status 01/11/2023 103 96 - 110 MEQ/L Final CARBON DIOXIDE Date Value Ref Range Status 01/11/2023 24 19 - 32 MEQ/L Final GLUCOSE Date Value Ref Range Status 01/11/2023 207 70 - 99 MG/DL Final Comment: (NOTE) The [place] [employer] recommends the following guidelines: MG/DL <100 = NORMAL GLUCOSE 100-125= IMPAIRED FASTING GLUCOSE >=126 = PROVISIONAL DIAGNOSIS OF DIABETES ADA Workgroup Report, Diabetic Care, volume August 2016 CREATININE Date Value Ref Range Status 01/11/2023 0.9 0.5 - 1.2 MG/DL Final BUN Date Value Ref Range Status 01/11/2023 28 3 - 29 MG/DL Final CALCIUM Date Value Ref Range Stat (more content not included)... Normal [facility] No Panel Informationon 05-06 IMPRESSION: NO SOFT TISSUE GAS. NO ACUTE BONY EROSION. NEUROPATHIC FOOT DICTATED BY: Eduardo HARRISON M.D.Workstation ID:[id number] [facility] LYNN 05/06/2023 2:57 PM 3 VIEWS OF THE RIGHT FOOT INDICATION: lower extremity ulceration COMPARISON: 11/08/2022 FINDINGS: There is marked deformity of the foot compatible with a neuropathic foot. Degenerative changes are similar compared with last years study with some worsening of bony proliferation involving the tarsal metatarsal joints.. There is soft tissue swelling, moderate in degree. Chikis Benites M D - 05/06/2023 05/06/2023 2:57 PM 3 VIEWS OF THE RIGHT FOOT INDICATION: lower extremity ulceration COMPARISON: 11/08/2022 FINDINGS: There is marked deformity of the foot compatible with a neuropathic foot. Degenerative changes are similar compared with last years study with some worsening of bony proliferation involving the tarsal metatarsal joints.. There is soft tissue swelling, moderate in degree. IMPRESSION: NO SOFT TISSUE GAS. NO ACUTE BONY EROSION. NEUROPATHIC FOOT DICTATED BY: Eduardo HARRISON M.D.Workstation ID:[id number] [facility] Radiology Study observation (narrative) [facility] No Panel InformationOrdered By: Chikis Harrison on 05-06-2023 [place] [employer] Work Phone: XR FOOT RIGHT MINIMUM 3 VIEW Son 05-06-2023 XR FOOT RIGHT MINIMUM 3 VIEWS 05/06/2023 2:57 PM 3 VIEWS OF THE RIGHT FOOT INDICATION: lower extremity ulceration COMPARISON: 11/08/2022 FINDINGS: There is marked deformity of the foot compatible with a neuropathic foot. Degenerative changes are similar compared with last years study with some worsening of bony proliferation involving the tarsal metatarsal joints.. There is soft tissue swelling, moderate in degree. IMPRESSION: NO SOFT TISSUE GAS. NO ACUTE BONY EROSION. NEUROPATHIC FOOT DICTATED BY: Eduardo HARRISON M.D.Workstation ID:[id number] Lower extremity ulceration, right, with fat layer exposed (HC CODE) Normal [facility] CARE PLANon 04-18-2023 Supervisor Forming And Tempering Authentication Interface Message Text Progressing. Normal [facility] MEDICAL STAFFon 04-18-2023 Supervisor Forming And Tempering Authentication Interface Message Text [facility] Wound Care Center 04/18/2023 Patient Name: Hanna Nelson : 1940 AGE: [age] year old GENDER: Female Chief Complaint/Reason for Visit Hanna Nelson is a 81 year old female who presents today for wound care of chronic wound on the bottom of the right foot. Patient is tolerating added offloading to her shoes well. She is going on vacation for the next 2 weeks. Assessment/Dermatologic Exam/Plan Assessment -Right lower extremity ulceration down to subcutaneous tissue (Daniels grade 2) -Charcot foot deformity right foot -Type 2 diabetes mellitus with peripheral neuropathy -Abrasion right foot Plan -Patient was seen, evaluated, and treated today. -No signs of infection. Monitor off antibiotics. -Continue with diabetic shoe with offloading insert at all times while walking. -If no noticeable improvement on the next visit ongoing send her back to her clothing trades workers at that time for further more formal modifications of the insert to better offload the area -Continue with local wound care to the area. -Any signs of infection before the next visit go to the emergency room -Follow-up 2 weeks for recheck Patient's Problem List Patient Active Problem List Diagnosis Essential hypertension Type 2 diabetes mellitus (HC CODE) Arthritis Hypothyroidism Palpitation Hyponatremia Spinal stenosis of lumbar region with neurogenic claudication Paroxysmal atrial fibrillation (HC CODE) Postoperative ileus (HC CODE) Paraparesis (HC CODE) Ataxia Cellulitis Peripheral vascular disease (HC CODE) Lower extremity ulceration, right, with fat layer exposed (HC CODE) Education regarding disease process, wound care, pressure relief and elevation discussed with patient today. Time spent with patient and patient care related issues in addition to coordination of patient's care with other physicians/agencies: Discharge Instructions were given to patient, significant other, caregiver, or DPOHC. Follow-up Current Wound Measurements: Wound Right Leg Medial Blister (bullae) (Active) Wound Right Foot Plantar (Active) Dressing Status / Change Moist with drainage 04/18/23 1336 Wound Bed Appearance Red 04/18/23 1336 Drainage Amount Moderate 04/18/23 1336 Drainage Appearance Red brown 04/18/23 1336 Odor None 04/18/23 1336 Wound cleanser Normal saline 04/18/23 1336 Advanced Wound Intervention Photos 04/18/23 1336 Wound length (cm) 0.2 cm 04/18/23 1336 Wound width (cm) 0.5 cm 04/18/23 1336 Wound depth (cm) 0.15 cm 04/18/23 1336 Wound Surface Area (length x width) 0.1 04/18/23 1336 Undermining / Tunneling No 03/07/23 1300 Periwound (surrounding) tissue Calloused;Macerated 04/04/23 1300 Primary Dressing Collagens;Alginate;Antimicr obial 04/04/23 1400 Secondary Dressing Foam Dressing-Silicone Boarder 04/04/23 1400 Wound Right Foot Lateral (Active) Dressing Status / Change Moist with drainage 04/18/23 1300 Wound Bed Appearance [place] 04/04/23 1300 Drainage Amount Moderate 04/18/23 1300 Drainage Appearance Red brown 04/18/23 1300 Odor None 04/18/23 1300 Wound cleanser Normal saline 04/18/23 1300 Advanced Wound Intervention Photos 04/18/23 1300 Wound length (cm) 0 cm 04/18/23 1336 Wound width (cm) 0 cm 04/18/23 1336 Wound depth (cm) 0 cm 04/18/23 1336 Wound Surface Area (length x width) 0 04/18/23 1336 Periwound (surrounding) tissue Calloused;Macerated 04/18/23 1300 Primary Dressing Band aids 03/21/23 1356 Secondary Dressing Foam Dressing-Silicone Boarder 04/04/23 1400 Pressure Ulcer Data:. Objective Vitals Signs: Visit Vitals BP 148/68 Pulse 64 Temp 97.3 F (36.3 C) Resp 16 OB Status Postmenopausal Smoking Status Former General Exam GENERAL: The patient is in no acute distress. RESP: Nonlabored breathing. No distress. Normal respirations. ABD: benign EXTREMITIES: No signs of infection to the right lower extremity Medications and Allergies No outpatient medications have been marked as taking for the 04/18/23 encounter (Hospital Encounter) with [facility] 4. Allergies Allergen Reactions Tape 1"X5yd [Adhesive Tape] Rash Redness. Avoids. Prefers paper tape Labs: WBC COUNT Date Value Ref Range Status 01/11/2023 7.3 3.5 - 10.9 K/uL Final HEMOGLOBIN Date Value Ref Range Status 01/11/2023 13.9 11.2 - 15.7 G/DL Final HEMATOCRIT Date Value Ref Range Status 01/11/2023 40.3 34.0 - 49.0 % Final PLATELET COUNT Date Value Ref Range Status 01/11/2023 252 140 - 400 K/uL Final SODIUM Date Value Ref Range Status 01/11/2023 141 135 - 148 MEQ/L Final 10/21/2020 135 135 - 148 MEQ/L POTASSIUM Date Value Ref Range Status 01/11/2023 4.7 3.4 - 5.3 MEQ/L Final CHLORIDE Date Value Ref Range Status 01/11/2023 103 96 - 110 MEQ/L Final CARBON DIOXIDE Date Value Ref Range Status 01/11/2023 24 19 - 32 MEQ/L Final GLUCOSE Date Value Ref Range Status 01/11/2023 207 70 (more content not included)... Normal [facility] CARE [facility] 04-04-2023 Supervisor [employer] Tem[employer] Authentication Interface Message Text Progressing. Normal [facility] MEDICAL [facility] 04-04-2023 Supervisor [employer]ing And Tempering Authentication Interface Message Text [facility] 04/04/2023 Patient Name: Hanna Nelson : 1940 AGE: [age] year old GENDER: Female Chief Complaint/Reason for Visit Hanna Nelson is a 81 year old female who presents today for wound care of chronic wound on the bottom of the right foot. Patient is tolerating added offloading to her shoes well Assessment/Dermatologic Exam/Plan Assessment -Right lower extremity ulceration down to subcutaneous tissue (Daniels grade 2) -Charcot foot deformity right foot -Type 2 diabetes mellitus with peripheral neuropathy -Abrasion right foot Plan -Patient was seen, evaluated, and treated today. -No signs of infection. Monitor off antibiotics. -Continue with diabetic shoe with offloading insert at all times while walking. -Added offloading appears to be doing well. Wound is smaller today. 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 -Any signs of infection before the next visit go to the emergency room -Follow-up 2 weeks for recheck Patient's Problem List Patient Active Problem List Diagnosis Essential hypertension Type 2 diabetes mellitus (HC CODE) Arthritis Hypothyroidism Palpitation Hyponatremia Spinal stenosis of lumbar region with neurogenic claudication Paroxysmal atrial fibrillation (HC CODE) Postoperative ileus (HC CODE) Paraparesis (HC CODE) Ataxia Cellulitis Peripheral vascular disease (HC CODE) Lower extremity ulceration, right, with fat layer exposed (HC CODE) Education regarding disease process, wound care, pressure relief and elevation discussed with patient today. Time spent with patient and patient care related issues in addition to coordination of patient's care with other physicians/agencies: Discharge Instructions were given to patient, significant other, caregiver, or DPOHC. Follow-up Current Wound Measurements: Wound Right Leg Medial Blister (bullae) (Active) Wound Right Foot Plantar (Active) Dressing Status / Change Moist with drainage 04/04/23 1300 Wound Bed Appearance Red 04/04/23 1300 Drainage Amount Moderate 04/04/23 1300 Drainage Appearance Serosanguineous 04/04/23 1300 Odor None 04/04/23 1300 Wound cleanser Body wash / periwash;Normal saline 04/04/23 1300 Advanced Wound Intervention Photos 03/21/23 1300 Wound length (cm) 0.4 cm 04/04/23 1400 Wound width (cm) 0.5 cm 04/04/23 1400 Wound depth (cm) 0.25 cm 04/04/23 1400 Wound Surface Area (length x width) 0.2 04/04/23 1400 Undermining / Tunneling No 03/07/23 1300 Periwound (surrounding) tissue Calloused;Macerated 04/04/23 1300 Primary Dressing Collagens;Alginate 03/21/23 1356 Secondary Dressing Foam Dressing-Silicone Boarder 03/21/23 1356 Wound Right Foot Lateral (Active) Dressing Status / Change Moist with drainage 04/04/23 1300 Wound Bed Appearance [place] 04/04/23 1300 Drainage Amount Small 04/04/23 1300 Drainage Appearance Serosanguineous 04/04/23 1300 Odor None 03/21/23 1300 Wound cleanser Body wash / periwash;Normal saline 04/04/23 1300 Advanced Wound Intervention Photos 03/21/23 1300 Wound length (cm) 0.2 cm 04/04/23 1400 Wound width (cm) 0.5 cm 04/04/23 1400 Wound depth (cm) 0.1 cm 04/04/23 1400 Wound Surface Area (length x width) 0.1 04/04/23 1400 Periwound (surrounding) tissue Calloused;Macerated 04/04/23 1300 Primary Dressing Band aids 03/21/23 1356 Pressure Ulcer Data:. Objective Vitals Signs: Visit Vitals OB Status Postmenopausal Smoking Status Former General Exam GENERAL: The patient is in no acute distress. RESP: Nonlabored breathing. No distress. Normal respirations. ABD: benign EXTREMITIES: No signs of infection to the right lower extremity Medications and Allergies No outpatient medications have been marked as taking for the 04/04/23 encounter (Hospital Encounter) with [facility] 3. Allergies Allergen Reactions Tape 1"X5yd [Adhesive Tape] Rash Redness. Avoids. Prefers paper tape Labs: WBC COUNT Date Value Ref Range Status 01/11/2023 7.3 3.5 - 10.9 K/uL Final HEMOGLOBIN Date Value Ref Range Status 01/11/2023 13.9 11.2 - 15.7 G/DL Final HEMATOCRIT Date Value Ref Range Status 01/11/2023 40.3 34.0 - 49.0 % Final PLATELET COUNT Date Value Ref Range Status 01/11/2023 252 140 - 400 K/uL Final SODIUM Date Value Ref Range Status 01/11/2023 141 135 - 148 MEQ/L Final 10/21/2020 135 135 - 148 MEQ/L POTASSIUM Date Value Ref Range Status 01/11/2023 4.7 3.4 - 5.3 MEQ/L Final CHLORIDE Date Value Ref Range Status 01/11/2023 103 96 - 110 MEQ/L Final CARBON DIOXIDE Date Value Ref Range Status 01/11/2023 24 19 - 32 MEQ/L Final GLUCOSE Date Value Ref Range Status 01/11/2023 207 70 - 99 MG/DL Final Comment: (NOTE) The [place] recommends the fol (more content not included)... Normal [facility] NURSING NOTEon 04-04-2023 Supervisor Forming And Tempering Authentication Interface Message Text [facility] [address] [address] Physician Orders Patient Name: Hanna Nelson Start Date: 04/04/2023 Order: [facility] 1. Clean wound(s) with: normal saline 2. Apply to wound(s): Primary: collagen :Ssecondary - silver alginate 3. Secure dressing with: Optifoam Gentle SA 4x4 border foam 4. Change:3/wk 5. Call with any questions or concerns, thank you! Return in 1 week Physician NPI and Signature: Dr. Estiven Mcfadden, DPM NPI# [id number] Home Health Care/ECF: Normal [facility] MAMMOGRAM SCREEN BILAT W/HARISH OSYNTHESISon 01-19-2022 IMPRESSION:BENIGN There is no mammographic evidence of malignancy. A 1 year screening mammogram is recommended. (01/19/2023) A result summary letter will be sent to the patient. The patient has been entered into a reminder system with the target due date for the next mammogram. Electronically signed by: Eduardo zuniga/troy:01/19/2022 10:01:23 letter sent: Category 1-2 Mammogram BI-RADS: 2 Benign [facility]RAIN LYNN #[id number] - MAMMOGRAM SCREEN BILAT W/TOMOSYNTHESIS DIGITAL SCREENING MAMMOGRAM 3D/2D WITH CAD: 01/18/2022 INDICATIONS: The patient is asymptomatic. Comparison is made to exams dated: 07/17/2019 mammogram and 09/23/2020 mammogram - [facility]. There are scattered areas of fibroglandular density in both breasts. Current study was also evaluated with a Computer Aided Detection (CAD) system. There are benign calcifications in both breasts. No significant masses, calcifications, or other findings are seen in either breast. There has been no significant interval change. Chikis Benites M D - 01/19/2022 #[id number] - MAMMOGRAM SCREEN BILAT W/TOMOSYNTHESIS DIGITAL SCREENING MAMMOGRAM 3D/2D WITH CAD: 01/18/2022 INDICATIONS: The patient is asymptomatic. Comparison is made to exams dated: 07/17/2019 mammogram and 09/23/2020 mammogram - [facility]. There are scattered areas of fibroglandular density in both breasts. Current study was also evaluated with a Computer Aided Detection (CAD) system. There are benign calcifications in both breasts. No significant masses, calcifications, or other findings are seen in either breast. There has been no significant interval change. IMPRESSION:BENIGN There is no mammographic evidence of malignancy. A 1 year screening mammogram is recommended. (01/19/2023) A result summary letter will be sent to the patient. The patient has been entered into a reminder system with the target due date for the next mammogram. Electronically signed by: Eduardo zuniga/troy:01/19/2022 10:01:23 letter sent: Category 1-2 Mammogram BI-RADS: 2 Benign [facility] MAMMOGRAM SCREEN BILAT W/HARISH OSYNTHESISOrdered By: Chikis Harrison on 01-19-2022 [employer] Work Phone: MAMMOGRAM SCREEN BILAT W/HARISH OSYNTHESISon 01-18-2022 Radiology Study observation (narrative) [facility] No Panel Informationon 11-09 IMPRESSION: Stable chronic changes associated with the right midfoot. No acute abnormality demonstrated. Dictated by Pierre Arzate M.D.Workstation ID:[id number] RUPAL [facility]AH EXAM: RIGHT FOOT - 3 VIEWS CLINICAL STATEMENT: [id number] - Wound, open, COMPARISON: 07/21/2020 FINDINGS: Pes planus deformity is again noted. There are advanced degenerative changes and sclerosis associated with the tarsal metatarsal joints. There is bony ankylosis associated with the tarsal bones. The configuration of the fusion mass is unchanged. Traction spur seen in the calcaneal tuberosity. Advanced degenerative change observed involving the second through first second and third metatarsophalangeal joints.These findings are unchanged. Pierre Vines MD - 11/09/2021 EXAM: RIGHT FOOT - 3 VIEWS CLINICAL STATEMENT: [id number] - Wound, open, COMPARISON: 07/21/2020 FINDINGS: Pes planus deformity is again noted. There are advanced degenerative changes and sclerosis associated with the tarsal metatarsal joints. There is bony ankylosis associated with the tarsal bones. The configuration of the fusion mass is unchanged. Traction spur seen in the calcaneal tuberosity. Advanced degenerative change observed involving the second through first second and third metatarsophalangeal joints.These findings are unchanged. IMPRESSION: Stable chronic changes associated with the right midfoot. No acute abnormality demonstrated. Dictated by Pierre Arzate M.D.Workstation ID:[id number] [facility] Radiology Study observation (narrative) [employer] No Panel InformationOrdered By: Pierre Arzate on 11-09-2021 [employer] Work Phone: CX WOUND COLLECTIONon 2020 [facility] [employer] [facility] WCNon 01-12-2021 [facility] WOUND CARE NOTE Name:HANNA NELSON Account: [id number] Progress Note Details Patient Name: HANNA NELSON. Date: 01/12/2021 Patient SUBJECTIVE Chief Complaint This information was obtained from the patient They healed me out last week." Allergies adhesive tape (Reaction: Itching, Rash) HPI This information was obtained from the patient The following HPI elements were documented for the patient's wound: Location: RLE Quality: denies pain Severity: 0/10 Duration: 10/10/2020 Timing: denies pain Modifying Factors: calamine gauze unna boot Associated Signs and Symptoms: epithelialized. no drainage Patient is doing well. She is recently gone on a trip to [place] with no issues. Her wounds are healed and her skin integrity is at its best it has been. She has not yet obtained compression stockings. Minimal edema in the lower extremity today. No complaints of fevers or chills. She is getting good nutrition. Family History This information was obtained from the patient Cancer - Father, Diabetes - Father, Heart Disease - Paternal Grandparents Social History This information was obtained from the patient Former smoker - Smoked When She Was 24 At [facility] [employer], Marital Status - , Retired, Children - 3, Caffeine Use - 2 Cups Daily, 1 coke zero, Alcohol Use - Occasional, Illicit Drug Use - None, Lives with - daughter currently, No Signs/Symptoms of Abuse, Suicide Risk: Patient denies suicidal ideation [facility] PATIENT NAME: HANNA NELSON Maia Valdes MEDICAL REC #: [id number] [place] [address] ADMIT DATE: SERVICE DATE: 01/12/21 Wound Care Note ATTENDING PHY: Nic Temple MD WOUND CARE NOTE Name:HANNA NELSON Account: [id number] Medical History This information was obtained from the patient Patient has a medical history of: Atrial Fibrillation Hyperlipidemia Type II Diabetes Hypertension Diabetic Neuropathy Hypothyroidism Surgical History This information was obtained from the patient Patient has a surgical history of: Cholecystectomy Right Hip Surgery Tubial Ligation Tonsillectomy Review of Systems (ROS) This information was obtained from the patient Complaints and Symptoms Patient complains of: Cardiovascular (Central/Peripheral): Edema, Lower extremity (leg) swelling Genitourinary (): Urinary Incontinence Integumentary (Hair/Skin/Nails): Open Sore, Calluses/Corns Musculoskeletal: Deformities Additional Information Does patient have a history of Cancer? Yes? Complete all questions.: No OBJECTIVE Vitals Height/Length: 71 in (180.34 cm), Weight: 195 lbs (88.64 kgs), BMI: 27.2, Temperature: 98.3 F (36.83 C), Pulse: 76 bpm, Respiratory Rate: 18 breaths/min, Blood Pressure: 152/77 mmHg. Vital Signs Notes: Blood sugar reported by patient: 125 Physical Exam Constitutional Blood pressure normal. Pulse rate and rhythm regular. Afebrile. Height within normal limits. Weight WNL. Well developed, well nourished, and in no acute distress. Alert and oriented x3. Respiratory: [facility] PATIENT NAME: HANNA NELSON Maia Valdes MEDICAL REC #: [id number] [place] [address] ADMIT DATE: SERVICE DATE: 01/12/21 Wound Care Note ATTENDING PHY: Nic Temple MD WOUND CARE NOTE Name:HANNA NELSON Account: [id number] Even respirations without use of accessory muscles. No intercoastal retractions noted. Even and non labored respiration. Clear to auscultation. Cardiovascular: Regular rate and rhythm. See lower extremity assessment when applicable. Right lower extremity with no open areas, no compromised skin, minimal edema.. Integumentary (Hair, Skin) See wound description. Psychiatric: Judgement and insight: Normal affect with normal thought pattern. Orientation to time, place and person: Normal affect with normal thought pattern. Recent and remote memory: Normal affect with normal thought pattern. Mood and affect: Normal affect with normal thought pattern. 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 - Eucerin to BLE C (more content not included)... [facility] WOUND CARE NOTE [facility] 01-02-2021 [facility] WOUND CARE NOTE Name:HANNA NELSON Account: [id number] Progress Note Details Patient Name: HANNA NELSON. Date: 12/29/2020 Patient SUBJECTIVE Chief Complaint This information was obtained from the patient I think the drainage was from last week" Allergies adhesive tape (Reaction: Itching, Rash) HPI This information was obtained from the patient The following HPI elements were documented for the patient's wound: Location: right ankle Quality: na Severity: 0 Duration: 10/10/20 Timing: denies pain Modifying Factors: compression wraps Associated Signs and Symptoms: epithelial Patient is doing well. No complaints of fevers or chills. She has been tolerating her external compression and being very compliant with her elevation. She is scheduled to go next week on a vacation to [place] with her family. She is getting good nutrition. She states she has an over the counter pair of compression stockings which she has been using on her left leg. OBJECTIVE Wound Assessment(s) WOUND #3 RIGHT, LATERAL ANKLE IS AN ACUTE DANIELS GRADE 2 DIABETIC ULCER AND HAS RECEIVED AN OUTCOME OF HEALED - no new wound(s). Initial wound encounter measurements are 0cm length x 0cm width with no measurable depth, with an area of 0 sq cm . No tunneling has been noted. No sinus tract has been noted. No undermining has been noted. There was no drainage noted. The patient reports a wound pain of level 0/10. The wound margin is [facility] PATIENT NAME: HANNA NELSON [address] Valdes MEDICAL REC #: [id number] [place] [address] ADMIT DATE: SERVICE DATE: 01/02/21 Wound Care Note ATTENDING PHY: Nic Temple MD WOUND CARE NOTE Name:HANNA NELSON Account: [id number] attached. Wound bed has Yes epithelialization, No eschar, No slough, No granulation. The periwound skin exhibited: Edema, Dry/Scaly. The periwound skin did not exhibit: Brawny Induration, Excoriation, Induration, Callus, Crepitus, Fluctuance, Friable, Rash, Moist, Maceration, Atrophie Kim, Cyanosis, Ecchymosis, Erythema, Hemosiderosis, Pallor, Rubor. The temperature of the periwound skin is WNL. Periwound skin does not exhibit signs or symptoms of infection. Local Pulse is Palpable. Vitals Height/Length: 71 in (180.34 cm), Weight: 195 lbs (88.64 kgs), BMI: 27.2, Temperature: 97 F (36.11 C), Pulse: 73 bpm, Respiratory Rate: 16 breaths/min, Blood Pressure: 143/77 mmHg. Vital Signs Notes: states fbs 147 Physical Exam Constitutional Blood pressure normal. Pulse rate and rhythm regular. Afebrile. Height within normal limits. Weight WNL. Well developed, well nourished, and in no acute distress. Alert and oriented x3. Respiratory: Even respirations without use of accessory muscles. No intercoastal retractions noted. Even and non labored respiration. Clear to auscultation. Cardiovascular: Regular rate and rhythm. See lower extremity assessment when applicable. Right lower extremity with mild erythema, no areas of opening, positive dry skin, nontender with palpation, minimal edema.. Integumentary (Hair, Skin) See wound description. Psychiatric: Judgement and insight: Normal affect with normal thought pattern. Orientation to time, place and person: Normal affect with normal thought pattern. Recent and remote memory: Normal affect with normal thought pattern. Mood and affect: Normal affect with normal thought pattern. ASSESSMENT [facility] PATIENT NAME: HANNA NELSON [address] Valdes MEDICAL REC #: [id number] [place] [address] ADMIT DATE: SERVICE DATE: 01/02/21 Wound Care Note ATTENDING PHY: Nic Temple MD WOUND CARE NOTE Name:HANNA NELSON Account: [id number] Active Problems ICD-10 (Encounter Diagnosis) E11.42 - Type 2 diabetes mellitus with diabetic polyneuropathy (Encounter Diagnosis) M14.671 - Charcot's joint, right ankle and foot (Encounter Diagnosis) I89.0 - Lymphedema, not elsewhere classified (Encounter Diagnosis) I73.9 - Peripheral vascular disease, unspecified (Encounter Diagnosis) R60.0 - Localized edema (Encounter Diagnosis) E11.621 - Type 2 diabetes mellitus with foot ulcer (Encounter Diagnosis) 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 A 2 Layers Unna Boot was applied with moderate 15-25 mmhg.. PLAN Wound Orders: WOUND #3 RIGHT, LATERAL ANKLE Cleanser Cleanse Wound with Normal Saline Compression/Edema Control Elevate leg(s) as much as possibl (more content not included)... [facility] WOUND CARE NOTE Name:HANNA NELSON Account: [id number] Progress Note Details Patient Name: HANNA NELSON. Date: 12/15/2020 Patient SUBJECTIVE Chief Complaint This information was obtained from the patient I Didn't Have Any Problems With The Compression Wrap This Week Allergies adhesive tape (Reaction: Itching, Rash) HPI This information was obtained from the patient The following HPI elements were documented for the patient's wound: Location: Right Ankle Quality: NA Severity: 0/10 Duration: October 2020 Timing: No Pain Per Patient Modifying Factors: Calamine Unna Compression Wrap Associated Signs and Symptoms: Slough Patient has been doing well over the last week. No complaints of fevers or chills. She has been good with her elevation and tolerating her compression well. She does not have compression stockings Family History This information was obtained from the patient Cancer - Father, Diabetes - Father, Heart Disease - Paternal Grandparents Social History This information was obtained from the patient Former smoker - Smoked When She Was 24 At [facility] [employer], Marital Status - , Retired, Children - 3, Caffeine Use - 2 Cups Daily, Alcohol Use - Occasional, Illicit Drug Use - None, No Signs/Symptoms of Abuse, Suicide Risk: Patient denies suicidal ideation Medical History This information was obtained from the patient Patient has a medical history of: [facility] PATIENT NAME: HANNA NELSON [address] Valdes MEDICAL REC #: [id number] [place] [address] ADMIT DATE: SERVICE DATE: 01/02/21 Wound Care Note ATTENDING PHY: Nic Temple MD WOUND CARE NOTE Name:HANNA NELSON Account: [id number] Atrial Fibrillation Hyperlipidemia Type II Diabetes Hypertension Diabetic Neuropathy Hypothyroidism Surgical History This information was obtained from the patient Patient has a surgical history of: Cholecystectomy Right Hip Surgery Tubial Ligation Tonsillectomy Review of Systems (ROS) This information was obtained from the patient Complaints and Symptoms Patient complains of: Cardiovascular (Central/Peripheral): Edema, Lower extremity (leg) swelling Genitourinary (): Urinary Incontinence Integumentary (Hair/Skin/Nails): Open Sore, Calluses/Corns Musculoskeletal: Deformities Additional Information Does patient have a history of Cancer? Yes? Complete all questions.: No OBJECTIVE Wound Assessment(s) WOUND #1 RIGHT, LATERAL LEG - LOWER IS A CHRONIC FULL THICKNESS CELLULITIS AND HAS RECEIVED AN OUTCOME OF HEALED - no new wound(s). Initial wound encounter measurements are 0cm length x 0cm width with no measurable depth, with an area of 0 sq cm . No tunneling has been noted. No sinus tract has been noted. No undermining has been noted. There was no drainage noted. The patient reports a wound pain of level 0/10. The wound margin is regular. Wound bed has Yes epithelialization, No eschar, No slough, No granulation. The periwound skin exhibited: Edema, Dry/Scaly. The periwound skin did not exhibit: Brawny Induration, Excoriation, Induration, Callus, Crepitus, Fluctuance, Friable, Rash, Moist, Maceration, Atrophie Kim, Cyanosis, [facility] PATIENT NAME: HANNA NELSON [address] [place] MEDICAL REC #: [id number] [place] [address] ADMIT DATE: SERVICE DATE: 01/02/21 Wound Care Note ATTENDING PHY: Nic Temple MD WOUND CARE NOTE Name:HANNA NELSON Account: [id number] Ecchymosis, Erythema, Hemosiderosis, Pallor, Rubor. The temperature of the periwound skin is WNL. Periwound skin does not exhibit signs or symptoms of infection. Local Pulse is Palpable. WOUND #3 RIGHT, LATERAL ANKLE IS AN ACUTE DANIELS GRADE 2 DIABETIC ULCER AND HAS RECEIVED A STATUS OF NOT Healed. Initial wound encounter measurements are 0.2cm length x 0.2cm width x 0.1cm depth, with an area of 0.04 sq cm and a volume of 0.004 cubic cm. Adipose is exposed. No tunneling has been noted. No sinus tract has been noted. No undermining has been noted. There is a moderate amount of serosanguineous drainage noted which has no odor. The patient reports a wound pain of level 0/10. The wound margin is attached. Wound bed has No epithelialization, No eschar, Yes slough, No granulation. The periwound skin exhibited: Edema, Dry/Scaly. The periwound skin did not exhibit: Brawny Induration, Excoriation, Induration, Callus, Crepitus, Fluctuance, Friable, Rash, Moist, Maceration, Atrophie Kim, Cyanosis, Ecchymosis, Erythema, Hemosiderosis, Pallor, Rubor. The temper (more content not included)... [facility] WOUND CARE NOTE Name:HANNA NELSON Account: [id number] Progress Note Details Patient Name: HANNA NELSON. Date: 12/22/2020 Patient SUBJECTIVE Chief Complaint This information was obtained from the patient There's just a tingling feeling on my wounds, I wouldn't say any pain." Allergies adhesive tape (Reaction: Itching, Rash) HPI This information was obtained from the patient The following HPI elements were documented for the patient's wound: Location: right lateral leg and right lateral ankle Quality: denies pain Severity: 0/10 Duration: October 2020 Timing: denies pain Modifying Factors: bactroban, endoform, calamine unna Patient presents in follow-up for her chronic right lower extremity swelling with history of cellulitis and small ulcers to the lateral right calf and lateral right foot. Patient is doing well but was more active and on her feet this past week. Her leg is more edematous than it was prior. She has no new openings and actually has healed her lateral wound. The foot wound seems smaller and there is no erythema. Again there is no fevers or chills. She is getting good nutrition. OBJECTIVE Wound Assessment(s) WOUND #1 RIGHT, LATERAL LEG - LOWER IS A CHRONIC FULL THICKNESS CELLULITIS AND HAS RECEIVED AN OUTCOME OF Continued improvement expected post discharge. Initial wound encounter measurements are 0.1cm length x 0.1cm width x 0.1cm depth, with an area of 0.01 sq cm and a volume of 0.001 cubic cm. Adipose is exposed. No tunneling has been noted. No sinus tract has been noted. No undermining has [facility] PATIENT NAME: HANNA NELSON [address] MEDICAL REC #: [id number] [place] [address] ADMIT DATE: SERVICE DATE: 01/02/21 Wound Care Note ATTENDING PHY: Nic Temple MD WOUND CARE NOTE Name:HANNA NELSON Account: [id number] been noted. There is a scant amount of serosanguineous drainage noted which has no odor. The patient reports a wound pain of level 0/10. The wound margin is regular. Wound bed has No epithelialization, No eschar, No slough, Yes pink, firm granulation. The periwound skin exhibited: Edema, Dry/Scaly. The periwound skin did not exhibit: Brawny Induration, Excoriation, Induration, Callus, Crepitus, Fluctuance, Friable, Rash, Moist, Maceration, Atrophie Kim, Cyanosis, Ecchymosis, Erythema, Hemosiderosis, Pallor, Rubor. The temperature of the periwound skin is WNL. Periwound skin does not exhibit signs or symptoms of infection. Local Pulse is Palpable. WOUND #3 RIGHT, LATERAL ANKLE IS AN ACUTE DANIELS GRADE 2 DIABETIC ULCER AND HAS RECEIVED A STATUS OF NOT Healed. Initial wound encounter measurements are 0.2cm length x 0.2cm width x 0.1cm depth, with an area of 0.04 sq cm and a volume of 0.004 cubic cm. Adipose is exposed. No tunneling has been noted. No sinus tract has been noted. No undermining has been noted. There is a scant amount of serosanguineous drainage noted which has no odor. The patient reports a wound pain of level 0/10. The wound margin is attached. Wound bed has No epithelialization, No eschar, Yes slough, No granulation. The periwound skin exhibited: Edema, Dry/Scaly. The periwound skin did not exhibit: Brawny Induration, Excoriation, Induration, Callus, Crepitus, Fluctuance, Friable, Rash, Moist, Maceration, Atrophie Pajaros, Cyanosis, Ecchymosis, Erythema, Hemosiderosis, Pallor, Rubor. The temperature of the periwound skin is WNL. Periwound skin does not exhibit signs or symptoms of infection. Local Pulse is Palpable. Vitals Height/Length: 71 in (180.34 cm), Weight: 195 lbs (88.64 kgs), BMI: 27.2, Temperature: 97.7 F (36.5 C), Pulse: 78 bpm, Respiratory Rate: 18 breaths/min, Blood Pressure: 148/81 mmHg. Vital Signs Notes: FBS reported by patient from this mornin Physical Exam Constitutional Blood pressure normal. Pulse rate and rhythm regular. Afebrile. Height within normal limits. Weight WNL. Well developed, well nourished, and in no acute distress. Alert and oriented x3. [facility] PATIENT NAME: HANNA NELSON [address] MEDICAL REC #: [id number] [place] [address] ADMIT DATE: SERVICE DATE: 01/02/21 Wound Care Note ATTENDING PHY: Nic Temple MD WOUND CARE NOTE Name:HANNA NELSON Account: [id number] Respiratory: Even respirations without use of accessory muscles. No intercoastal retractions noted. Even and non labored respiration. Clear to auscultation. Cardiovascular: Regular rate and rhythm. Dopplerable pedal signals. Right lower extremity withou (more content not included)... Normal [facility] WOUND CARE NOTE Normal [facility] ANKLE COMP MIN 3 VWS RTon ANKLE COMP MIN 3 VWS RT ANKLE COMP MIN 3 VWS RT Ordering Physician: Nic Temple MD 12/15/2020 3:19 PM RIGHT ANKLE THREE VIEWS: Clinical Statement: Diabetic ulcer right foot Comparison: None FINDINGS: There is a wrap overlying the ankle. The ankle mortise joint is preserved. No fractures or subluxations. The subtalar joint is narrowed in degenerated. There is a flatfoot deformity. IMPRESSION: No acute process is identified. ---- Electronic Signature on File ---- Signed By: Adolfo Marrero MD PhD [email or web address] Dictated: 12/15/2020 3:57 PM Signed: 12/15/2020 3:58 PM Reported By: ADOLFO MARRERO M.D. Signed By: ADOLFO MARRERO M.D. [facility] FOOT COMP MIN 3 VWS RTon FOOT COMP MIN 3 VWS RT FOOT COMP MIN 3 V WS RT Ordering Physician: Nic Temple MD 12/15/2020 3:19 PM RIGHT FOOT THREE VIEWS: Clinical Statement: Diabetic ulcer right foot Comparison: None FINDINGS: There are extensive degenerative changes of the tarsometatarsal joints with loss of arch and resulting flatfoot deformity. The subtalar joint is also narrowed and likely degenerated. The dorsal bones are likely fused. There is a wrap on the patient's foot and ankle. No erosive process is identified. 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 No distinct acute abnormality is identified, although this area is partially obscured by the patient's wrap. ---- Electronic Signature on File ---- Signed By: Adolfo Marrero MD PhD [email or web address] Dictated: 12/15/2020 3:55 PM Signed: 12/15/2020 3:57 PM Reported By: ADOLFO MARRERO M.D. Signed By: ADOLFO MARRERO M.D. [facility] VLARon 11-24-2020 NON-INVASIVE ARTERIAL REPORT Normal [facility] [place]ona ALBARADO VASCULAR REPORT - Patient: HANNA NELSON Account [id number] Ordering Phy: MR: [id number] Reason for Visit: I73.9 Date of Service 11/24/20 Reading Physician: Narendra Chavira MD [id number] CLI LATOYA Segmental Press/PVR JENNIFER Lower [facility] [address] [place] [address] Non- Invasive Vascular Laboratory Lower Extremity Arterial Doppler Report Name: HANNA NELSON Study Date: 11/24/2020 12:27 PM Patient Location: [facility] : 1940 Gender: Female Age: 80 yrs Ethnicity: MS Accession No. [id number] No. [id number] Order No. [id number] Reason For Study: I73.9 Peripheral vascular disease, unspecified Interpretation Summary Noninvasive arterial segmental study of the right lower extremity exhibits no sign of arterial disease. The ankle/brachial index is 1.2 on the right. Noninvasive arterial segmental study of the left lower extremity CC: Nic Temple MD [facility] PATIENT NAME: HAN[facility] NELSON [address] [facility] [facility] [address] [facility] MED[facility] REC #: [id number] [place] [address] ADMIT DATE: DISCHARGE DATE: NON-INVASIVE ARTERIAL REPORT ATTENDING PHY: Nic Temple MD Electronically Signed by: Narendra Chavira MD Esign Date: 11/24/20 VASCULAR REPORT - Patient: HANNA NELSON Account [id number] Ordering Phy: MR: [id number] Reason for Visit: I73.9 Date of Service 11/24/20 Reading Physician: Narendra Chavira MD exhibits no sign of arterial disease. The ankle/brachial index is 1.2 on the left. Limited right leg due to skin thickening and edema of calf. Right Findings Evaluation of the right lower extremity with PVR waveform demonstrates a normal waveform at the level of the thigh,calf, ankle and digit. Normal Segmental pressures at the thigh,calf,ankle and digit levels with minimal variation between the levels. The right posterior tibial artery has a triphasic CW Doppler signal. The right anterior tibial artery has a triphasic CW Doppler signal. Right ankle/brachial index is 1.2. Left Findings Evaluation of the left lower extremity with PVR waveform demonstrates a normal waveform at the level of the thigh,calf, ankle and digit. Normal Segmental pressures at the thigh, calf, ankle and digit levels with minimal variation between the levels. The left posterior tibial artery has a triphasic CW Doppler signal. The left anterior tibial artery has a triphasic CW Doppler signal. Left ankle/brachial index is 1.2. __ Electronically signed by: Narendra Chavira MD 11/24/2020 08:01 PM Ordering Physician: Nic Temple Performed By: Mohini Mcnair RVT CC: Nic Temple CC: Nic Temple MD [facility] PATIENT NAME: HANNA NELSON [address] [place] MEDICAL REC #: [id number] [place] [address] ADMIT DATE: DISCHARGE DATE: NON-INVASIVE ARTERIAL REPORT ATTENDING PHY: Nic Temple MD Electronically Signed by: Narendra Chavira MD Esign Date: 11/24/20 [facility] VENOUS DUPLEX REPORT Normal [facility] VASCULAR REPORT - Patient: HANNA NELSON Account [id number] Ordering Phy: MR: [id number] Reason for Visit: R60.0 Date of Service 11/21/20 Reading Physician: Willi Chaudhary MD [id number] CLI [id number] JENNIFER LE VENOUS DUPLEX SCAN [address] [place] [address] Non- Invasive Vascular Laboratory Lower Extremity Venous Duplex __ Name: HANNA NELSON Study Date: 11/21/2020 08:48 AM Patient Location: [facility] : 1940 Gender: Female Age: 80 yrs Ethnicity: MS Accession No. [id number] No. [id number] Order No. [id number] Reason For Study: R60.0 Localized edema Interpretation Summary No evidence of deep vein thrombosis (DVT) or superficial vein thrombosis in the right lower extremity. No evidence of deep vein thrombosis (DVT) or superficial vein thrombosis in the left lower CC: Nic Temple MD [facility] PATIENT NAME: HANNA NELSON [address] [place] [address] Dr[address] MEDICAL REC #: [id number] [place] [address] ADMIT DATE: DISCHARGE DATE: VENOUS DUPLEX REPORT ATTENDING PHY: Nic Temple MD Electronically Signed by: Willi Chaudhary MD Esign Date: 11/21/20 VASCULAR REPORT - Patient: HANNA NELSON Account [id number] Ordering Phy: MR: [id number] Reason for Visit: R60.0 Date of Service 11/21/20 Reading Physician: Willi Chaudhary MD extremity. No evidence of venous insufficiency bilaterally. Right Findings Left Findings Veins Spont PhasicAugmentPulsatilReflux Veins Spont PhasicAugmentPulsatilReflux FV Normal.Normal.Normal. No. FV Normal.Normal.Normal. No. Mid. Normal.Normal.Normal. No. Mid. Normal.Normal.Normal. No. CFV. Normal.Normal.Normal. No. CFV. Normal.Normal.Normal. No. POP. Normal.Normal.Normal. No. POP. Normal.Normal.Normal. No. GSV. GSV. Compression Compression Rt. CFV: Lt. CFV: Completely Completely Compressible. Compressible. Rt. DFV: Lt. DFV: Completely Completely Compressible. Compressible. Rt. FV Prox: Lt. FV Prox: Completely Completely Compressible. Compressible. Rt. FV Mid: Lt. FV Mid: Competely Competely Compressible. Compressible. Rt. FV Dist: Lt. FV Dist: Completely Completely Compressible. Compressible. Rt. POP: Lt. POP: Completely Completely Compressible. Compressible. CC: Nic Temple MD [facility] PATIENT NAME: HANNA NELSON [address] MEDICAL REC #: [id number] [place] [address] ADMIT DATE: DISCHARGE DATE: VENOUS DUPLEX REPORT ATTENDING PHY: Nic Temple MD Electronically Signed by: Willi Chaudhary MD Esign Date: 11/21/20 VASCULAR REPORT - Patient: HANNA NELSON Account [id number] Ordering Phy: MR: [id number] Reason for Visit: R60.0 Date of Service 11/21/20 Reading Physician: Willi Chaudhary MD Rt. Ant Tib: Lt. Ant Tib: Completely Completely Compressible. Compressible. Rt. PTV: Lt. PTV: Completely Completely Compressible. Compressible. Rt. PeroV: Lt. PeroV: Completely Completely Compressible. Compressible. Rt. Gastroc: Lt. Gastroc: Completely Completely Compressible. Compressible. Rt. Soleal: Lt. Soleal: Completely Completely Compressible. Compressible. Rt. GSV: Lt. GSV: Completely Completely Compressible. Compressible. Rt. SSV: Lt. SSV: Completely Completely Compressible. Compressible. Right Findings The right lower extremity was evaluated with grayscale, color and spectral Doppler. The level of the calf to the level of the common femoral vein shows compressibility throughout the deep and superficial venous system. Color and spectral Doppler waveform analysis of the deep and superficial venous system demonstrates spontaneous, phasic and augmented flow with no evidence of reflux in the deep or superficial venous system,. These findings are consistent with the absence of deep vein thrombosis (DVT) or superficial vein thrombosis. Left Findings CC: Nic Temple MD [facility] PATIENT NAME: HANNA NELSON [address] MEDICAL REC #: [id number] [place] [address] ADMIT DATE: DISCHARGE DATE: VENOUS DUPLEX REPORT ATTENDING PHY: Nic Temple MD Electronically Signed by: Willi Chaudhary MD Esign Date: 11/21/20 VASCULAR REPORT - Patient: HANNA NELSON Account [id number] Ordering Phy: MR: [id number] Reason for Visit: R60.0 Date of Service 11/21/20 Read (more content not included)... Normal [facility] [place] ACCUCHECK GLUCOSEon 10-22-19 Glucose post fast [Mass/Vol] 256 mg/dL High [facility] Comment on above: Result Not Confirmed Interpretation and review of laboratory results Abnormal [facility] Glucose post fast [Mass/Vol] 282 mg/dL High [facility] Comment on above: NURSE AWARE Interpretation and review of laboratory results Abnormal [facility] Glucose post fast [Mass/Vol] 181 mg/dL [facility] Comment on above: NURSE AWARE Interpretation and review of laboratory results Abnormal [facility] BASIC METABOLIC PANELon 10-10 Anion gap [Moles/Vol] 8 mmol/L [facility] Calcium [Mass/Vol] 8.4 mg/dL [facility] Chloride [Moles/Vol] 105 mmol/L [facility] CO2 [Moles/Vol] 22 mmol/L [facility] Creatinine [Mass/Vol] 0.7 mg/dL [facility] GFR/1.73 sq M.predicted MDRD (S/P/Bld) [Vol rate/Area] 82 mL/min/{1.73_m2} ML/MIN/1.7 3M2 [facility] Comment on above: IF THE PATIENT IS , PLEASE MULTIPLY THIS BY 1.159. THIS RESULT HAS BEEN CALCULATED ASSUMING THE PATIENT IS NON- Glucose [Mass/Vol] 205 mg/dL [facility] Interpretation and review of laboratory results Abnormal [facility] Potassium [Moles/Vol] 3.8 mmol/L [facility] Sodium [Moles/Vol] 135 mmol/L [facility] Urea nitrogen [Mass/Vol] 23 mg/dL [facility] Urea nitrogen/Creatinine [Mass ratio] 34 mg/mg [facility] CULTURE, BLOODon 10-21-2020 Bacteria identified Cx Nom (U) NO GROWTH 5 DAYS [facility] SPECIAL REQUESTS NONE [facility] SPECIMEN DESCRIPTION BLOOD Jet [facility] Bacteria identified Cx Nom (U) NO GROWTH 5 DAYS [facility] SPECIAL REQUESTS NONE [facility] SPECIMEN DESCRIPTION LINE DRAW [facility] ACCUCHECK GLUCOSEon 10-21-19 Glucose post fast [Mass/Vol] 276 mg/dL High [facility] Comment on above: NURSE AWARE Interpretation and review of laboratory results Abnormal [facility] Glucose post fast [Mass/Vol] 289 mg/dL High [facility] Comment on above: NURSE AWARE Interpretation and review of laboratory results [facility] Glucose post fast [Mass/Vol] 276 mg/dL High [facility] Comment on above: NURSE AWARE Interpretation and review of laboratory results [facility] Glucose post fast [Mass/Vol] 199 mg/dL High [facility] Comment on above: NURSE AWARE Interpretation and review of laboratory results Abnormal [facility] BASIC METABOLIC PANELon 10-10 Anion gap [Moles/Vol] 8 mmol/L [facility] Calcium [Mass/Vol] 8.2 mg/dL [facility] Chloride [Moles/Vol] 105 mmol/L [facility] CO2 [Moles/Vol] 22 mmol/L [facility] Creatinine [Mass/Vol] 0.7 mg/dL [facility] GFR/1.73 sq M.predicted MDRD (S/P/Bld) [Vol rate/Area] 82 mL/min/{1.73_m2} ML/MIN/1.7 3M2 [facility] Comment on above: IF THE PATIENT IS , PLEASE MULTIPLY THIS BY 1.159. THIS RESULT HAS BEEN CALCULATED ASSUMING THE PATIENT IS NON- Glucose [Mass/Vol] 206 mg/dL [facility] Interpretation and review of laboratory results Abnormal [facility] Potassium [Moles/Vol] 3.9 mmol/L [facility] Sodium [Moles/Vol] 135 mmol/L [facility] Urea nitrogen [Mass/Vol] 23 mg/dL [facility] Urea nitrogen/Creatinine [Mass ratio] 32 mg/mg [facility] Anion gap [Moles/Vol] 11 mmol/L [facility] Calcium [Mass/Vol] 8.3 mg/dL [facility] Chloride [Moles/Vol] 101 mmol/L [facility] CO2 [Moles/Vol] 20 mmol/L [facility] Creatinine [Mass/Vol] 0.8 mg/dL [facility] GFR/1.73 sq M.predicted MDRD (S/P/Bld) [Vol rate/Area] 69 mL/min/{1.73_m2} ML/MIN/1.7 3M2 [facility] Comment on above: IF THE PATIENT IS , PLEASE MULTIPLY THIS BY 1.159. THIS RESULT HAS BEEN CALCULATED ASSUMING THE PATIENT IS NON- Glucose [Mass/Vol] 237 mg/dL [facility] Interpretation and review of laboratory results Abnormal [facility] Potassium [Moles/Vol] 3.3 mmol/L Low [facility] Sodium [Moles/Vol] 132 mmol/L [facility] Urea nitrogen [Mass/Vol] 24 mg/dL [facility] Urea nitrogen/Creatinine [Mass ratio] 32 mg/mg High [facility] ACCUCHECK GLUCOSEon 10-20-19 Glucose post fast [Mass/Vol] 254 mg/dL High [facility] Comment on above: NURSE AWARE Interpretation and review of laboratory results [facility] Glucose post fast [Mass/Vol] 276 mg/dL [facility] Comment on above: NURSE AWARE Interpretation and review of laboratory results Abnormal [facility] Glucose post fast [Mass/Vol] 293 mg/dL High [facility] Comment on above: NURSE AWARE Interpretation and review of laboratory results Abnormal [facility] Glucose post fast [Mass/Vol] 216 mg/dL [facility] Comment on above: NURSE AWARE Interpretation and review of laboratory results Abnormal [facility] BASIC METABOLIC PANELon 10-10 Anion gap [Moles/Vol] 14 mmol/L [facility] Calcium [Mass/Vol] 8.2 mg/dL [facility] Chloride [Moles/Vol] 101 mmol/L [facility] CO2 [Moles/Vol] 14 mmol/L Low [facility] Creatinine [Mass/Vol] 0.9 mg/dL [facility] GFR/1.73 sq M.predicted MDRD (S/P/Bld) [Vol rate/Area] 60 mL/min/{1.73_m2} ML/MIN/1.7 3M2 [facility] Comment on above: IF THE PATIENT IS , PLEASE MULTIPLY THIS BY 1.159. THIS RESULT HAS BEEN CALCULATED ASSUMING THE PATIENT IS NON- Glucose [Mass/Vol] 384 mg/dL [facility] Interpretation and review of laboratory results Abnormal [facility] Potassium [Moles/Vol] 4.7 mmol/L [facility] Comment on above: HEMOLYZED POTASSIUM RESULTS ARE ELEVATED BY SPECIMEN HEMOLYSIS Sodium [Moles/Vol] 129 mmol/L [facility] Urea nitrogen [Mass/Vol] 28 mg/dL [facility] Urea nitrogen/Creatinine [Mass ratio] 32 mg/mg [facility] Anion gap [Moles/Vol] 12 mmol/L [facility] Calcium [Mass/Vol] 8.3 mg/dL [facility] Chloride [Moles/Vol] 103 mmol/L [facility] CO2 [Moles/Vol] 19 mmol/L [facility] Creatinine [Mass/Vol] 0.8 mg/dL [facility] GFR/1.73 sq M.predicted MDRD (S/P/Bld) [Vol rate/Area] 69 mL/min/{1.73_m2} ML/MIN/1.7 3M2 [facility] Comment on above: IF THE PATIENT IS , PLEASE MULTIPLY THIS BY 1.159. THIS RESULT HAS BEEN CALCULATED ASSUMING THE PATIENT IS NON- Glucose [Mass/Vol] 255 mg/dL [facility] Interpretation and review of laboratory results Abnormal [facility] Potassium [Moles/Vol] 3.5 mmol/L [facility] Sodium [Moles/Vol] 134 mmol/L [facility] Urea nitrogen [Mass/Vol] 23 mg/dL [facility] Urea nitrogen/Creatinine [Mass ratio] 28 mg/mg [facility] Anion gap [Moles/Vol] 9 mmol/L [facility] Calcium [Mass/Vol] 8.4 mg/dL [facility] Chloride [Moles/Vol] 105 mmol/L [facility] CO2 [Moles/Vol] 20 mmol/L [facility] Creatinine [Mass/Vol] 0.9 mg/dL [facility] GFR/1.73 sq M.predicted MDRD (S/P/Bld) [Vol rate/Area] 60 mL/min/{1.73_m2} ML/MIN/1.7 3M2 [facility] Comment on above: IF THE PATIENT IS , PLEASE MULTIPLY THIS BY 1.159. THIS RESULT HAS BEEN CALCULATED ASSUMING THE PATIENT IS NON- Glucose [Mass/Vol] 298 mg/dL [facility] Interpretation and review of laboratory results Abnormal [facility] Potassium [Moles/Vol] 3.1 mmol/L Low [facility] Sodium [Moles/Vol] 134 mmol/L [facility] Urea nitrogen [Mass/Vol] 27 mg/dL [facility] Urea nitrogen/Creatinine [Mass ratio] 29 mg/mg [facility] ACCUCHECK GLUCOSEon 10-19-19 Glucose post fast [Mass/Vol] 309 mg/dL [facility] [facility] Comment on above: NURSE AWARE Interpretation and review of laboratory results [facility] Glucose post fast [Mass/Vol] 297 mg/dL High [facility] Comment on above: NURSE AWARE Interpretation and review of laboratory results Abnormal [facility] Glucose post fast [Mass/Vol] 199 mg/dL High [facility] Comment on above: NURSE AWARE Interpretation and review of laboratory results Abnormal [facility] Glucose post fast [Mass/Vol] 152 mg/dL High [facility] Comment on above: NURSE AWARE Interpretation and review of laboratory results Abnormal [facility] BASIC METABOLIC PANELon Anion gap [Moles/Vol] 16 mmol/L High [facility] Calcium [Mass/Vol] 8.9 mg/dL [facility] Chloride [Moles/Vol] 106 mmol/L [facility] CO2 [Moles/Vol] 16 mmol/L Low [facility] Creatinine [Mass/Vol] 1.0 mg/dL Pre [facility] GFR/1.73 sq M.predicted MDRD (S/P/Bld) [Vol rate/Area] 53 mL/min/{1.73_m2} ML/MIN/1.7 3M2 [facility] Comment on above: IF THE PATIENT IS , PLEASE MULTIPLY THIS BY 1.159. THIS RESULT HAS BEEN CALCULATED ASSUMING THE PATIENT IS NON- Glucose [Mass/Vol] 295 mg/dL High [facility] Interpretation and review of laboratory results Abnormal [facility] Potassium [Moles/Vol] 5.2 mmol/L [facility] Comment on above: HEMOLYZED POTASSIUM RESULTS ARE ELEVATED BY SPECIMEN HEMOLYSIS Sodium [Moles/Vol] 138 mmol/L [facility] Urea nitrogen [Mass/Vol] 30 mg/dL High [facility] Urea nitrogen/Creatinine [Mass ratio] 30 mg/mg High [facility] Anion gap [Moles/Vol] 14 mmol/L [facility] Calcium [Mass/Vol] 8.7 mg/dL [facility] Chloride [Moles/Vol] 106 mmol/L [facility] CO2 [Moles/Vol] 17 mmol/L Low [facility] Creatinine [Mass/Vol] 1.0 mg/dL [facility] GFR/1.73 sq M.predicted MDRD (S/P/Bld) [Vol rate/Area] 53 mL/min/{1.73_m2} ML/MIN/1.7 3M2 [facility] Comment on above: IF THE PATIENT IS , PLEASE MULTIPLY THIS BY 1.159. THIS RESULT HAS BEEN CALCULATED ASSUMING THE PATIENT IS NON- Glucose [Mass/Vol] 167 mg/dL High [facility] Interpretation and review of laboratory results Abnormal [facility] Potassium [Moles/Vol] 3.1 mmol/L Low [facility] Sodium [Moles/Vol] 137 mmol/L [facility] Urea nitrogen [Mass/Vol] 37 mg/dL High [facility] Urea nitrogen/Creatinine [Mass ratio] 35 mg/mg High [facility] Anion gap [Moles/Vol] 15 mmol/L [facility] Calcium [Mass/Vol] 9.0 mg/dL [facility] Chloride [Moles/Vol] 102 mmol/L [facility] CO2 [Moles/Vol] 17 mmol/L Low [facility] Creatinine [Mass/Vol] 1.2 mg/dL [facility] GFR/1.73 sq M.predicted MDRD (S/P/Bld) [Vol rate/Area] 42 mL/min/{1.73_m2} ML/MIN/1.7 3M2 [facility] Comment on above: IF THE PATIENT IS , PLEASE MULTIPLY THIS BY 1.159. THIS RESULT HAS BEEN CALCULATED ASSUMING THE PATIENT IS NON- Glucose [Mass/Vol] 190 mg/dL High [facility] Interpretation and review of laboratory results Abnormal [facility] Potassium [Moles/Vol] 3.1 mmol/L Low [facility] Sodium [Moles/Vol] 134 mmol/L Low [facility] Urea nitrogen [Mass/Vol] 40 mg/dL High [facility] Urea nitrogen/Creatinine [Mass ratio] 34 mg/mg High [facility] CLOSTRIDIUM DIFFICILE SCREEN on 10-18-2020 C. DIFFICILE SCREEN NEGATIVE Reference range: NEGATIVE [facility] MRSA BY PCRon 10-18-2020 MRSA BY PCR NOT DETECTED Reference range: NOT DETECTED (NOTE) Reference Range = NOT DETECTED [facility] Service comment (Unsp spec) [Interp] GOMEZ MICHEL [place] [facility] URINALYSIS REFLEX TO CULTURE on 10-18-2020 Appearance (U) CLEAR [facility] Bacteria LM.HPF (Urine sed) [#/Area] TRACE Abnormal NS [facility] Bilirubin Ql (U) Negative NEG [facility] Casts LM.LPF (Urine sed) [#/Area] NONE SEEN /LPF [facility] Casts LM.LPF (Urine sed) [#/Area] 0-5 /LPF [facility] Color (U) YELLOW [facility] Crystals LM.HPF (Urine sed) [#/Area] NONE SEEN [facility] Glucose Ql (U) >=1000 Abnormal NEG MG/DL [facility] Hemoglobin Ql (U) TRACE Abnormal NEG [facility] Interpretation and review of laboratory results Abnormal [facility] Ketones Ql (U) Negative NEG MG/DL [facility] Leukocyte esterase Test strip Ql (U) Negative NEG [facility] Mucus Ql (Urine sed) TRACE [facility] Nitrite Ql (U) Negative NEG [facility] pH (U) 6.0 [pH] [facility] Protein Ql (U) Negative NEG MG/DL [facility] RBC LM.HPF (Urine sed) [#/Vol] 0-2 U02 /HPF [facility] Service comment (Unsp spec) [Interp] TEST PERFORMED AT [facility] Specific gravity (U) [Rel density] 1.010 [facility] Urobilinogen Test strip Ql (U) NORMAL <2 [facility] WBC LM.HPF (Urine sed) [#/Area] 0-5 U05 /HPF [facility] XR CHEST 1V POST LINE/TUBE P LACEMENTon 10-18-2020 Chest History: PICC line placement Comparison: 09/04/2020 Findings: AP view of the chest demonstrates no focal acute infiltrate. The heart is borderline in size. Right PICC line tip near cavoatrial junction. [facility] Marisa Mezaults - 10/18/2020 3:51 PM EST Chest History: PICC line placement Comparison: 09/04/2020 Findings: AP view of the chest demonstrates no focal acute infiltrate. The heart is borderline in size. Right PICC line tip near cavoatrial junction. IMPRESSION: Right PICC line tip near the cavoatrial junction. Dictated by Liset Wilson MD, PhD Workstation ID:[id number] [facility] IMPRESSION: Right PI CC line tip near the cavoatrial junction. Dictated by Liset Wilson MD, PhD Workstation ID:[id number] [facility] ACCUCHECK GLUCOSEon 10-18-19 21 Glucose post fast [Mass/Vol] 233 mg/dL High [facility] Comment on above: NURSE AWARE Interpretation and review of laboratory results Abnormal [facility] Glucose post fast [Mass/Vol] 187 mg/dL High [facility] Comment on above: NURSE AWARE Interpretation and review of laboratory results Abnormal [facility] Glucose post fast [Mass/Vol] 236 mg/dL High [facility] Comment on above: NURSE AWARE Interpretation and review of laboratory results Abnormal [facility] Glucose post fast [Mass/Vol] 219 mg/dL High [facility] Comment on above: NURSE AWARE Interpretation and review of laboratory results Abnormal [facility] Glucose post fast [Mass/Vol] 246 mg/dL High [facility] Comment on above: NURSE AWARE Interpretation and review of laboratory results Abnormal [facility] BASIC METABOLIC PANELon Anion gap [Moles/Vol] 12 mmol/L [facility] Calcium [Mass/Vol] 8.5 mg/dL [facility] Chloride [Moles/Vol] 97 mmol/L [facility] CO2 [Moles/Vol] 18 mmol/L Low [facility] Creatinine [Mass/Vol] 1.3 mg/dL High [facility] GFR/1.73 sq M.predicted MDRD (S/P/Bld) [Vol rate/Area] 39 mL/min/{1.73_m2} ML/MIN/1.7 3M2 [facility] Comment on above: IF THE PATIENT IS , PLEASE MULTIPLY THIS BY 1.159. THIS RESULT HAS BEEN CALCULATED ASSUMING THE PATIENT IS NON- Glucose [Mass/Vol] 257 mg/dL High [facility] Interpretation and review of laboratory results Abnormal [facility] Potassium [Moles/Vol] 3.4 mmol/L [facility] Sodium [Moles/Vol] 127 mmol/L Low [facility] Urea nitrogen [Mass/Vol] 45 mg/dL High [facility] Urea nitrogen/Creatinine [Mass ratio] 33 mg/mg High [facility] Anion gap [Moles/Vol] 12 mmol/L [facility] Calcium [Mass/Vol] 8.9 mg/dL [facility] Chloride [Moles/Vol] 97 mmol/L [facility] CO2 [Moles/Vol] 18 mmol/L Low [facility] Creatinine [Mass/Vol] 1.3 mg/dL High [facility] GFR/1.73 sq M.predicted MDRD (S/P/Bld) [Vol rate/Area] 39 mL/min/{1.73_m2} ML/MIN/1.7 3M2 [facility] Comment on above: IF THE PATIENT IS , PLEASE MULTIPLY THIS BY 1.159. THIS RESULT HAS BEEN CALCULATED ASSUMING THE PATIENT IS NON- Glucose [Mass/Vol] 198 mg/dL High [facility] Interpretation and review of laboratory results Abnormal [facility] Potassium [Moles/Vol] 3.1 mmol/L Low [facility] Sodium [Moles/Vol] 127 mmol/L Low [facility] Urea nitrogen [Mass/Vol] 48 mg/dL High [facility] Urea nitrogen/Creatinine [Mass ratio] 37 mg/mg High [facility] Anion gap [Moles/Vol] 13 mmol/L [facility] Calcium [Mass/Vol] 9.0 mg/dL [facility] Chloride [Moles/Vol] 95 mmol/L Low [facility] CO2 [Moles/Vol] 18 mmol/L Low [facility] Creatinine [Mass/Vol] 1.2 mg/dL [facility] GFR/1.73 sq M.predicted MDRD (S/P/Bld) [Vol rate/Area] 42 mL/min/{1.73_m2} ML/MIN/1.7 3M2 [facility] Comment on above: IF THE PATIENT IS , PLEASE MULTIPLY THIS BY 1.159. THIS RESULT HAS BEEN CALCULATED ASSUMING THE PATIENT IS NON- Glucose [Mass/Vol] 269 mg/dL High [facility] Interpretation and review of laboratory results Abnormal [facility] Potassium [Moles/Vol] 3.2 mmol/L Low Pre [facility] Sodium [Moles/Vol] 125 mmol/L Low [facility] Urea nitrogen [Mass/Vol] 45 mg/dL High [facility] Urea nitrogen/Creatinine [Mass ratio] 39 mg/mg High [facility] COMPLETE BLOOD COUNTon 10-17 Erythrocyte distribution width (RBC) [Ratio] 14.8 % 9.0 - 15.0 % [facility] Hematocrit (Bld) [Volume fraction] 29.1 % Low 35.0 - 46.0 % [facility] Hemoglobin (Bld) [Mass/Vol] 9.7 g/dL Low [facility] Interpretation and review of laboratory results Abnormal [facility] MCH (RBC) [Entitic mass] 30.9 pg 27.0 - 33.0 PG [facility] MCHC (RBC) [Mass/Vol] 33.3 g/dL Pre [facility] MCV (RBC) [Entitic vol] 92.7 fL [facility] Platelets (Bld) [#/Vol] 138 10*3/uL [facility] RBC (Bld) [#/Vol] 3.14 10*6/uL Low [facility] WBC (Bld) [#/Vol] 12.8 10*3/uL High [facility] OSMOLALITYon 10-17-2020 Osmolality [Osmolality] 294 mosm/kg [facility] OSMOLALITY, URINEon 10-18-19 Osmolality (U) [Osmolality] 313 mosm/kg [facility] SODIUM, URINE RANDOMon 10-17 Sodium (U) [Moles/Vol] 20 mmol/L MEQ/L Pr [facility] URIC ACIDon 10-17-2020 Interpretation and review of laboratory results Abnormal [facility] Service comment (Unsp spec) [Interp] 8.7 High [facility] ACCUCHECK GLUCOSEon 10-17-19 Glucose post fast [Mass/Vol] 309 mg/dL High [facility] Comment on above: NURSE AWARE Interpretation and review of laboratory results Abnormal [facility] Glucose post fast [Mass/Vol] 368 mg/dL High [facility] Comment on above: NURSE AWARE Interpretation and review of laboratory results Abnormal [facility] Glucose post fast [Mass/Vol] 312 mg/dL High [facility] Comment on above: NURSE AWARE Interpretation and review of laboratory results Abnormal [facility] Glucose post fast [Mass/Vol] 201 mg/dL High [facility] Comment on above: NURSE AWARE Interpretation and review of laboratory results Abnormal [facility] BASIC METABOLIC PANELon Anion gap [Moles/Vol] 13 mmol/L [facility] Calcium [Mass/Vol] 8.8 mg/dL [facility] Chloride [Moles/Vol] 94 mmol/L Low [facility] CO2 [Moles/Vol] 18 mmol/L Low [facility] Creatinine [Mass/Vol] 1.3 mg/dL High [facility] GFR/1.73 sq M.predicted MDRD (S/P/Bld) [Vol rate/Area] 39 mL/min/{1.73_m2} ML/MIN/1.7 3M2 [facility] Comment on above: IF THE PATIENT IS , PLEASE MULTIPLY THIS BY 1.159. THIS RESULT HAS BEEN CALCULATED ASSUMING THE PATIENT IS NON- Glucose [Mass/Vol] 302 mg/dL High [facility] Interpretation and review of laboratory results Abnormal [facility] Potassium [Moles/Vol] 3.7 mmol/L [facility] Sodium [Moles/Vol] 125 mmol/L Low [facility] Urea nitrogen [Mass/Vol] 48 mg/dL High [facility] Urea nitrogen/Creatinine [Mass ratio] 38 mg/mg High [facility] Anion gap [Moles/Vol] 17 mmol/L High [facility] Calcium [Mass/Vol] 9.1 mg/dL [facility] Chloride [Moles/Vol] 91 mmol/L Low [facility] CO2 [Moles/Vol] 17 mmol/L Low [facility] Creatinine [Mass/Vol] 1.3 mg/dL High Pre [facility] GFR/1.73 sq M.predicted MDRD (S/P/Bld) [Vol rate/Area] 39 mL/min/{1.73_m2} ML/MIN/1.7 3M2 [facility] Comment on above: IF THE PATIENT IS , PLEASE MULTIPLY THIS BY 1.159. THIS RESULT HAS BEEN CALCULATED ASSUMING THE PATIENT IS NON- Glucose [Mass/Vol] 205 mg/dL High [facility] Interpretation and review of laboratory results Abnormal [facility] Potassium [Moles/Vol] 3.6 mmol/L Pre [facility] Sodium [Moles/Vol] 125 mmol/L Low [facility] Urea nitrogen [Mass/Vol] 47 mg/dL High [facility] Urea nitrogen/Creatinine [Mass ratio] 37 mg/mg High [facility] CK (CPK)on 10-16-2020 CK [Catalytic activity/Vol] 121 U/L 0 - 200 U/L [facility] CT EXTREMITY LOWER RIGHT WIT HOUT CONTRASTon 10-16-[address] [facility] [address] EXTREMITY LOWER R IGHT WITHOUT CONTRAST performed on 10/16/2020 12:11 AM Indication:INJURY, Comparison: None Technique: Helically acquired CT images were obtained through the right foot and ankle without intravenous contrast and reconstructed in axial, coronal and sagittal planes. Findings: On the medial aspect of the ankle there is a domed fluid structure measuring 3.3 x 0.7 cm within the dermis. There is diffuse edema throughout the subcutaneous soft tissues with skin thickening over the dorsum of the foot. There is no focal loculated fluid collection. There is no evidence of gas within the soft tissues. Extensive disorganization and fusion is seen within the mid and hindfoot relating to neurogenic or remote traumatic injury. No evidence of acute osseous abnormality. [facility] IMPRESSION: 1. Diffu se edema as well as dorsal skin thickening. No abscess or free air. No acute bony abnormality. 2. 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 DICTATED BY: Conrad Pineda M.D.Workstation ID:[id number] [facility] Interface, Radiant R esults - 10/16/2020 1:[address] EXTREMITY LOWER RIGHT WITHOUT CONTRAST performed on 10/16/2020 12:11 AM Indication:INJURY, Comparison: None Technique: Helically acquired CT images were obtained through the right foot and ankle without intravenous contrast and reconstructed in axial, coronal and sagittal planes. Findings: On the medial aspect of the ankle there is a domed fluid structure measuring 3.3 x 0.7 cm within the dermis. There is diffuse edema throughout the subcutaneous soft tissues with skin thickening over the dorsum of the foot. There is no focal loculated fluid collection. There is no evidence of gas within the soft tissues. Extensive disorganization and fusion is seen within the mid and hindfoot relating to neurogenic or remote traumatic injury. No evidence of acute osseous abnormality. IMPRESSION: 1. Diffuse edema as well as dorsal skin thickening. No abscess or free air. No acute bony abnormality. 2. 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 DICTATED BY: Conrad Pineda M.D.Workstation ID:[id number] [facility] [address] HEAD (URGENT-ANTICOAGULAT ED HEAD INJURY PATIENT)on 10-16-2020 IMPRESSION: 1. NO AC WILLIE INTRACRANIAL HEMORRHAGE OR MASS EFFECT. NO DEPRESSED CALVARIAL FRACTURE. 2. STABLE-APPEARING MILD PRESUMED CHRONIC SMALL VESSEL ISCHEMIC CHANGES. MRI HAS IMPROVED SENSITIVITY FOR RECENT INFARCT OR SUBTLE LESION. DICTATED BY LOREN SALCIDO M.D.Workstation ID:[id number] [facility] CT HEAD (URGENT-ANTICOAGULATED HEAD INJURY PATIENT), 10/15/2020 11:50 PM. INDICATION: INJURY, . COMPARISON: 05/15/2019. TECHNIQUE: Multiple axial images were obtained through the head without IV contrast. Coronal reconstructions were obtained. Dose reduction: mA and/or kV are were adjusted by automated exposure control software based upon patient's height and weight. FINDINGS: No acute intracranial hemorrhage. No extra-axial fluid collection. No mass effect. No midline shift. No herniation. No evidence of acute large territory transcortical infarct. 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 Stable-appearing pattern of scattered and confluent hypoattenuating foci involving the periventricular, deep and subcortical white matter of bilateral cerebral hemispheres and the airam, nonspecific but most likely reflecting chronic small vessel ischemia mildly advanced for age. Ventricles and sulci are age appropriate. Basal cisterns are patent and symmetric. Intracranial atherosclerotic calcifications. Visualized paranasal sinuses are essentially clear. Visualized mastoid air cells are essentially clear. Intraorbital soft tissues appear grossly normal. Hyperostosis frontalis interna. No depressed calvarial fracture. [facility] Interface, Radiant R esults - 10/16/2020 12:[address] HEAD (URGENT-ANTICOAGULATED HEAD INJURY PATIENT), 10/15/2020 11:50 PM. INDICATION: INJURY, . COMPARISON: 05/15/2019. TECHNIQUE: Multiple axial images were obtained through the head without IV contrast. Coronal reconstructions were obtained. Dose reduction: mA and/or kV are were adjusted by automated exposure control software based upon patient's height and weight. FINDINGS: No acute intracranial hemorrhage. No extra-axial fluid collection. No mass effect. No midline shift. No herniation. No evidence of acute large territory transcortical infarct. 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 Stable-appearing pattern of scattered and confluent hypoattenuating foci involving the periventricular, deep and subcortical white matter of bilateral cerebral hemispheres and the airam, nonspecific but most likely reflecting chronic small vessel ischemia mildly advanced for age. Ventricles and sulci are age appropriate. Basal cisterns are patent and symmetric. Intracranial atherosclerotic calcifications. Visualized paranasal sinuses are essentially clear. Visualized mastoid air cells are essentially clear. Intraorbital soft tissues appear grossly normal. Hyperostosis frontalis interna. No depressed calvarial fracture. IMPRESSION: 1. NO ACUTE INTRACRANIAL HEMORRHAGE OR MASS EFFECT. NO DEPRESSED CALVARIAL FRACTURE. 2. STABLE-APPEARING MILD PRESUMED CHRONIC SMALL VESSEL ISCHEMIC CHANGES. MRI HAS IMPROVED SENSITIVITY FOR RECENT INFARCT OR SUBTLE LESION. DICTATED BY LOREN SALCIDO M.D.Workstation ID:[id number] [facility]ERV[facility] WITHOUT CO NTRASTon 10-16-2020 [facility] IMPRESSION: Multilev el degenerative changes without fracture or subluxation. Dictated by Conrad Pindea M.D.Workstation ID:[id number] [facility] [address] SPINE CERVICAL WI THOUT CONTRAST performed 10/16/2020 1:05 AM INDICATION: Fall COMPARISON: 06/30/2017 TECHNIQUE: Helically acquired CT images were obtained through the cervical spine without intravenous contrast and reconstructed in the axial, coronal and sagittal planes. FINDINGS: The occipital condyles are intact and articulate normally with C1. Dens is intact. Atlantodental interval is normal. Lateral masses of C1 and two are aligned. Multilevel discogenic and facet hypertrophic degenerative changes. Vertebral hypertrophy is present multiple levels. There is grade 1 anterolisthesis of C4 on C5. There is no evidence of displaced fracture. There is mild canal stenosis at C6-7 in association with posterior projecting disc ossific complex. There is grade 1 anterolisthesis of C7 on T1. Paracervical soft tissues are unremarkable. Lung apices are clear, [facility] Interface, Radiant R esults - 10/16/2020 1:[address] SPINE CERVICAL WITHOUT CONTRAST performed 10/16/2020 1:05 AM INDICATION: Fall COMPARISON: 06/30/2017 TECHNIQUE: Helically acquired CT images were obtained through the cervical spine without intravenous contrast and reconstructed in the axial, coronal and sagittal planes. FINDINGS: The occipital condyles are intact and articulate normally with C1. Dens is intact. Atlantodental interval is normal. Lateral masses of C1 and two are aligned. Multilevel discogenic and facet hypertrophic degenerative changes. Vertebral hypertrophy is present multiple levels. There is grade 1 anterolisthesis of C4 on C5. There is no evidence of displaced fracture. There is mild canal stenosis at C6-7 in association with posterior projecting disc ossific complex. There is grade 1 anterolisthesis of C7 on T1. Paracervical soft tissues are unremarkable. Lung apices are clear, IMPRESSION: Multilevel degenerative changes without fracture or subluxation. Dictated by Conrad Pineda M.D.Workstation ID:[id number] [facility] Standardon 10-16-2020 [place] [employer] Ventricular Rate: 79 BPM Atrial Rate: 79 BPM P-R Interval: 172 ms QRS Duration: 94 ms Q-T Interval: 414 ms QTC Calculation(Bazett): 474 ms Calculated P [place]: 53 degrees Calculated R [place]: -2 degrees Calculated T [place]: 30 degrees Diagnosis: Normal sinus rhythm Normal ECG [place] [facility] [employer] HEPATIC FUNCTION PANELon Albumin [Mass/Vol] 2.9 g/dL Low [facility] Albumin/Globulin [Mass ratio] 0.9 {ratio} [facility] ALP [Catalytic activity/Vol] 43 U/L 23 - 144 U/L [facility] ALT [Catalytic activity/Vol] 17 U/L 0 - 60 U/L [facility] AST [Catalytic activity/Vol] 27 U/L 0 - 55 U/L [facility] Bilirubin [Mass/Vol] 0.5 mg/dL [facility] Bilirubin.direct [Mass/Vol] 0.2 mg/dL [facility] Bilirubin.indirect [Mass/Vol] 0.3 [facility] Globulin (S) [Mass/Vol] 3.4 g/dL [facility] Interpretation and review of laboratory results Abnormal [facility] Protein [Mass/Vol] 6.3 g/dL [facility] LACTIC ACIDon 10-16-2020 Lactate [Mass/Vol] 1.6 [facility] Otheron 10-16-2020 [facility] SARS COV 2 RNA, QL REAL TIME RT PCRon 10-16-2020 comment, SARS COV-2 RNA, RT PCR (NOTE) [facility] Comment on above: The SARS CoV-2 RNA, Qualitative Real-Time RT-PCR test is a qualitative multi-target molecular diagnostic test that aids in the detection of COVID-19. This test has been authorized by the FDA under an Emergency Use Authorization (EUA) for use by authourized laboratories. Refer to www.cdc.gov for additional information about Coronavirus disease 2019. SARS CoV 2 RNA, RT PCR NOT DETECTED NDET [facility] Comment on above: Reference Range = NO T DETECTED [facility] URINALYSIS MACROSCOPICon Appearance (U) CLEAR [facility] Bilirubin Ql (U) SMALL Abnormal NEG [facility] Color (U) YELLOW [facility] Glucose Ql (U) >=1000 Abnormal NEG MG/DL [facility] Hemoglobin Ql (U) Negative NEG [facility] Interpretation and review of laboratory results Abnormal [facility] Ketones Ql (U) Negative NEG MG/DL [facility] Leukocyte esterase Test strip Ql (U) Negative NEG [facility] Nitrite Ql (U) Negative NEG [facility] pH (U) 5.5 [pH] [facility] Protein Ql (U) Negative NEG MG/DL [facility] Specific gravity (U) [Rel density] 1.015 [facility] Urobilinogen Test strip Ql (U) NORMAL <2 [facility] US VENOUS DOPPLER RIGHT LOWE Dante 10-16-2020 ULTRASOUND VENOUS DO PPLER RIGHT LOWER EXTREMITY VEINS: 10/16/2020 1:48 AM Indication: Pain and swelling. Examination: Ultrasonographic evaluation of the veins of the right lower extremity was performed to evaluate for the clinically suspected deep venous thrombosis. The left common femoral vein was evaluated as well. Comparison: None. Findings: Color flow imaging demonstrates normal flow. Two-dimensional imaging demonstrates no evidence of filling defect or limited compressibility of the common femoral, superficial femoral, popliteal vein and visualized calf veins. Doppler interrogation demonstrates normal phasic flow with respiration with adequate augmentation and normal response to Valsalva maneuver. simplifyMD - 10/16/2020 1:57 AM EST ULTRASOUND VENOUS DOPPLER RIGHT LOWER EXTREMITY VEINS: 10/16/2020 1:48 AM Indication: Pain and swelling. Examination: Ultrasonographic evaluation of the veins of the right lower extremity was performed to evaluate for the clinically suspected deep venous thrombosis. The left common femoral vein was evaluated as well. Comparison: None. Findings: Color flow imaging demonstrates normal flow. Two-dimensional imaging demonstrates no evidence of filling defect or limited compressibility of the common femoral, superficial femoral, popliteal vein and visualized calf veins. Doppler interrogation demonstrates normal phasic flow with respiration with adequate augmentation and normal response to Valsalva maneuver. IMPRESSION: No evidence of right lower extremity deep or superficial venous thrombosis. Dictated by Conrad Pineda M.D. Workstation ID:[id number] [employer] IMPRESSION: No evide nce of right lower extremity deep or superficial venous thrombosis. Dictated by Conrad Pineda M.D. Workstation ID:[id number] [facility] XR LEG TIBIA / FIBULA RIGHT 2 VIEWSon 10-16-2020 IMPRESSION: No fract ure of the right tibia and fibula. There is subcutaneous edema diffusely in the calf with more focal soft tissue edema at the distal medial calf. DICTATED BY: SAIDA QUINTERO MD Workstation ID:[id number] [facility] - 10/16/2020 7:11 AM EST EXAMINATION: XR LEG TIBIA / FIBULA RIGHT 2 VIEWS. 10/16/2020 12:12 AM CLINICAL: Right leg pain. Fall. Screening wounds. COMPARISON: None. TECHNIQUE: Two radiographs of the right tibia and fibula were obtained. FINDINGS: No acute fracture is present. 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 There is subcutaneous edema of the calf with more focal area of soft tissue edema at the medial distal calf. No soft tissue gas is present. 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 No periostitis or bone erosion is visualized. IMPRESSION: No fracture of the right tibia and fibula. There is subcutaneous edema diffusely in the calf with more focal soft tissue edema at the distal medial calf. DICTATED BY: SAIDA QUINTERO MD Workstation ID:[id number] [facility] EXAMINATION: XR LEG TIBIA / FIBULA RIGHT 2 VIEWS. 10/16/2020 12:12 AM CLINICAL: Right leg pain. Fall. Screening wounds. COMPARISON: None. TECHNIQUE: Two radiographs of the right tibia and fibula were obtained. FINDINGS: No acute fracture is present. 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 There is subcutaneous edema of the calf with more focal area of soft tissue edema at the medial distal calf. No soft tissue gas is present. 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 No periostitis or bone erosion is visualized. [facility] BASIC METABOLIC PANELon 03-0 Anion gap [Moles/Vol] 16 mmol/L High [facility] Calcium [Mass/Vol] 9.6 mg/dL [facility] Chloride [Moles/Vol] 89 mmol/L Low [facility] CO2 [Moles/Vol] 20 mmol/L [facility] Creatinine [Mass/Vol] 1.5 mg/dL High [facility] GFR/1.73 sq M.predicted MDRD (S/P/Bld) [Vol rate/Area] 32 mL/min/{1.73_m2} ML/MIN/1.7 3M2 [facility] Comment on above: IF THE PATIENT IS , PLEASE MULTIPLY THIS BY 1.159. THIS RESULT HAS BEEN CALCULATED ASSUMING THE PATIENT IS NON- Glucose [Mass/Vol] 243 mg/dL [facility] Interpretation and review of laboratory results Abnormal [facility] Potassium [Moles/Vol] 4.1 mmol/L [facility] Sodium [Moles/Vol] 125 mmol/L Low [facility] Urea nitrogen [Mass/Vol] 48 mg/dL High [facility] Urea nitrogen/Creatinine [Mass ratio] 32 mg/mg High [facility] COMPLETE BLOOD COUNT WITH DI FFERENTIALon 10-15-2020 Band form neutrophils (Bld) [#/Vol] 10.9 10*3/uL High [facility] Basophils (Bld) [#/Vol] 0.0 10*3/uL [facility] Basophils/100 WBC (Bld) 0.4 % 0.0 - 2.0 % [facility] Eosinophils (Bld) [#/Vol] 0.0 10*3/uL [facility] Eosinophils/100 WBC (Bld) 0.3 % 0.0 - 7.0 % [facility] Erythrocyte distribution width (RBC) [Ratio] 14.5 % 9.0 - 15.0 % [facility] Hematocrit (Bld) [Volume fraction] 36.1 % 35.0 - 46.0 % [facility] Hemoglobin (Bld) [Mass/Vol] 11.7 g/dL Low [facility] Interpretation and review of laboratory results Abnormal [facility] Lymphocytes (Bld) [#/Vol] 0.8 10*3/uL Low [facility] Lymphocytes/100 WBC (Bld) 6.4 % Low 14.0 - 51.0 % [facility] MCH (RBC) [Entitic mass] 30.3 pg 27.0 - 33.0 PG [facility] MCHC (RBC) [Mass/Vol] 32.6 g/dL [facility] MCV (RBC) [Entitic vol] 93.1 fL [facility] Monocytes (Bld) [#/Vol] 0.9 10*3/uL [facility] Monocytes/100 WBC (Bld) 6.8 % 0 - 14.0 % [facility] Neutrophils/100 WBC (Bld) 86.1 % High 40.0 - 76.0 % [facility] Platelets (Bld) [#/Vol] 180 10*3/uL [facility] RBC (Bld) [#/Vol] 3.87 10*6/uL Low [facility] WBC (Bld) [#/Vol] 12.7 10*3/uL High [facility] NM MYOCARDIAL PERFUSION IMAG INGon 10-04-2020 CARDIAC STRESS TEST Procedure Date: 10/04/2020 Patient Name: Hanna Nelson : 1940 INDICATION FOR STUDY To evaluate the extent and severity of coronary artery disease PROCEDURE DESCRIPTION: Procedure: ELECTROCARDIOGRAPHIC DATA: Baseline ekg showed sinus rhythm with nonspecific ST changes. With IV regadenoson, no significant ST segment deviation is noted. No significant arhythmias seen EKG portion of this study is negative for ischemia. CONCLUSIONS: Pharmacological stress test with regadenoson Negative Lexiscan EKG portion for ischemia No arrhythmia Normal blood pressure and heart rate response NUCLEAR IMAGES: Patient received a dose of 11.1 mCi of Technetium 99m Myoview at rest and received a dose of 38.8 mCi of the same tracer at stress. Gating was applied to these images for calculation of ejection fraction and assessment of wall motion. Attenuation correction was applied to these images as well. Rest Images Reveal: Uniform uptake of the myocardial perfusion tracer Stress Images Reveal: Uniform uptake of the myocardial perfusion tracer TID Score: 1.02 Gated Wall Motion Analysis: Normal left ventricular wall motion and normal calculated ejection fraction of 75%. Normal LV volume with end-diastolic volume calculated at 84 cc. CONCLUSIONS: EKG Portion: Negative Lexiscan EKG portion for ischemia Normal perfusion study no significant evidence of perfusion defect suggestive of ischemia or scar noted. Normal ejection fraction, EF 75%. Low risk for cardiovascular events based on perfusion study, correlate clinically. Electronically signed by: Nicholas Lemon DO, 10/04/2020 1:02 PM [facility] Vital Signs Date Time Vital Sign Value Performing Clinician Michael wells 03-24-2025 12:21-0400 Body temperature 97 [degF] Jennifer Perry DO Work Phone: [facility] 03-24-2025 12:21-040 Diastolic blood pressure 80 mm[Hg] Jennifer Perry DO Work Phone: [facility] 03-24-2025 12:21-0400 Heart rate 125 /min Jennifer Perry DO Work Phone: [facility] 03-24-2025 12:21-0400 Respiratory rate 16 /min Jennifer Perry DO Work Phone: [facility] 03-24-2025 12:21-0400 SaO2% (BldA) [Mass fraction] 97 % Jennifer Perry DO Work Phone: [facility] 03-24-2025 12:21-0400 Systolic blood pressure 122 mm[Hg] Jennifer Perry DO Work Phone: [facility] 03-22-2025 14:23-0400 Body height 179.7 cm Jennifer Perry DO Work Phone: [facility] 03-20-2025 11:21-0400 Body mass index (BMI) [Ratio] 28.09 kg/m2 Jennifer Perry DO Work Phone: [facility] 03-20-2025 11:21-0400 Body weight 90.72 kg Jennifer Perry DO Work Phone: [facility] 03-15-2025 14:49-0400 Heart rate 115 /min Anastasia Rodriguez MD Work Phone: [facility] 03-15-2025 14:49-0400 Respiratory rate 22 /min Anastasia Rodriguez MD Work Phone: [facility] 03-15-2025 11:27-0400 Body temperature 96.3 [degF] Anastasia Rodriguez MD Work Phone: [facility] 03-15-2025 11:25-0400 Diastolic blood pressure 99 mm[Hg] Anastasia Rodriguez MD Work Phone: [facility] 03-15-2025 11:25-0400 SaO2% (BldA) [Mass fraction] 100 % Anastasia Rodriguez MD Work Phone: [facility] 03-15-2025 11:25-0400 Systolic blood pressure 148 mm[Hg] Anastasia Rodriguez MD Work Phone: [facility] 03-15-2025 10:26-0400 Body height 177.8 cm Anastasia Rodriguez MD Work Phone: [employer] 03-15-2025 10:26-0400 Body mass index (BMI) [Ratio] 28.7 kg/m2 Anastasia Rodriguez MD Work Phone: [facility] [employer] 03-15-2025 10:26-0400 Body weight 90.72 kg Anastasia Rodriguez MD Work Phone: [facility] 03-09-2025 10:23-0400 Body temperature 97.39 [degF] Jennifer Waldrop DPM Work Phone: [employer] [facility] [employer] 03-09-2025 10:23-0400 Diastolic blood pressure 83 mm[Hg] Jennifer Waldrop DPM Work Phone: [facility] 03-09-2025 10:23-0400 Heart rate 130 /min Jennifer Waldrop DPM Work Phone: [facility] 03-09-2025 10:23-0400 Respiratory rate 18 /min Jennifer Waldrop DPM Work Phone: [employer] [facility] [employer] 03-09-2025 10:23-0400 Systolic blood pressure 137 mm[Hg] Jennifer Waldrop DPM Work Phone: [facility] [employer] 03-02-2025 10:17-0400 Body temperature 97.59 [degF] Jennifer Waldrop DPM Work Phone: [facility] [employer] 03-02-2025 10:17-0400 Diastolic blood pressure 80 mm[Hg] Jennifer Waldrop DPM Work Phone: [facility] [employer] 03-02-2025 10:17-0400 Heart rate 132 /min Jennifer Waldrop DPM Work Phone: [facility] [employer] 03-02-2025 10:17-0400 Respiratory rate 18 /min Jennifer Waldrop DPM Work Phone: [facility] [employer] 03-02-2025 10:17-0400 Systolic blood pressure 100 mm[Hg] Jennifer Waldrop DPM Work Phone: [facility] [employer] 02-23-2025 10:23-0400 Body height 177.8 cm Jennifer Waldrop DPM Work Phone: [facility] [employer] 02-23-2025 10:23-0400 Body mass index (BMI) [Ratio] 28.7 kg/m2 Jennifer Waldrop DPM Work Phone: [facility] [employer] 02-23-2025 10:23-0400 Body temperature 97.2 [degF] Jennifer Waldrop DPM Work Phone: [facility] [employer] 02-23-2025 10:23-0400 Body weight 90.72 kg Jennifer Waldrop DPM Work Phone: [facility] [employer] 02-23-2025 10:23-0400 Diastolic blood pressure 84 mm[Hg] Jennifer Waldrop DPM Work Phone: [facility] [employer] 02-23-2025 10:23-0400 Heart rate 62 /min Jennifer Waldrop DPM Work Phone: [facility] [employer] 02-23-2025 10:23-0400 Respiratory rate 18 /min Jennifer Waldrop DPM Work Phone: [facility] [employer] 02-23-2025 10:23-0400 Systolic blood pressure 145 mm[Hg] Jennifer Waldrop DPM Work Phone: [facility] [employer] 02-02-2025 10:57-0400 Body temperature 97.59 [degF] LINO Conley MD Work Phone: [facility] [employer] 02-02-2025 10:57-0400 Heart rate 86 /min LINO Conley MD Work Phone: [facility] [employer] 02-02-2025 10:57-0400 Respiratory rate 19 /min LINO Conley MD Work Phone: [facility] [employer] 02-02-2025 10:57-0400 SaO2% (BldA) [Mass fraction] 95 % LINO Conley MD Work Phone: [facility] [employer] 02-02-2025 07:27-0400 Diastolic blood pressure 101 mm[Hg] LINO Conley MD Work Phone: [facility] [employer] 02-02-2025 07:27-0400 Systolic blood pressure 160 mm[Hg] LINO Conley MD Work Phone: [facility] [employer] 02-02-2025 00:42-0400 Body mass index (BMI) [Ratio] 30.99 kg/m2 LINO Conley MD Work Phone: [facility] [employer] 02-02-2025 00:42-0400 Body weight 97.98 kg LINO Conley MD Work Phone: [facility] [employer] 01-27-2025 16:58-0400 Body height 177.8 cm LINO Conley MD Work Phone: [facility] [employer] 01-12-2025 09:48-0400 Body temperature 96.91 [degF] Jennifer Waldrop DPM Work Phone: [facility] [employer] 01-12-2025 09:48-0400 Diastolic blood pressure 85 mm[Hg] Jennifer Waldrop DPM Work Phone: [facility] [employer] 01-12-2025 09:48-0400 Heart rate 58 /min Jennifer Waldrop DPM Work Phone: [employer] [employer] 01-12-2025 09:48-0400 Respiratory rate 18 /min Jennifer Waldrop DPM Work Phone: [facility] [employer] 01-12-2025 09:48-0400 Systolic blood pressure 136 mm[Hg] Jennifer Waldrop DPM Work Phone: [facility] [employer] 01-05-2025 10:03-0400 Body height 177.8 cm Jennifer Waldrop DPM Work Phone: [employer] [employer] 01-05-2025 10:03-0400 Body mass index (BMI) [Ratio] 28.98 kg/m2 Jennifer Waldrop DPM Work Phone: [facility] [employer] 01-05-2025 10:03-0400 Body temperature 96.91 [degF] Jennifer Waldrop DPM Work Phone: [facility] [employer] 01-05-2025 10:03-0400 Body weight 91.63 kg Jennifer Waldrop DPM Work Phone: [facility] [employer] 01-05-2025 10:03-0400 Diastolic blood pressure 87 mm[Hg] Jennifer Waldrop DPM Work Phone: [facility] 01-05-2025 10:03-0400 Heart rate 88 /min Jennifer Waldrop DPM Work Phone: [facility] [employer] 01-05-2025 10:03-0400 Systolic blood pressure 138 mm[Hg] Jennifer Waldrop DPM Work Phone: [facility] [employer] 12-29-2024 11:06-0400 Body temperature 97 [degF] Jennifer Waldrop DPM Work Phone: [facility] [employer] 12-29-2024 11:06-0400 Diastolic blood pressure 67 mm[Hg] Jennifer Waldrop DPM Work Phone: [facility] [employer] 12-29-2024 11:06-0400 Heart rate 104 /min Jennifer Waldrop DPM Work Phone: [facility] [employer] 12-29-2024 11:06-0400 Respiratory rate 18 /min Jennifer Waldrop DPM Work Phone: [facility] [employer] 12-29-2024 11:06-0400 Systolic blood pressure 131 mm[Hg] Jennifer Waldrop DPM Work Phone: [facility] [employer] 12-24-2024 10:17-0400 Body height 177.8 cm Priscila Laguerre 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 - NUCLEAR PLANT INSTRUMENT TECHNICIAN Work Phone: [facility] [employer] 12-24-2024 10:17-0400 Diastolic blood pressure 61 mm[Hg] Priscila Laguerre 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 - NUCLEAR PLANT INSTRUMENT TECHNICIAN Work Phone: [facility] [employer] 12-24-2024 10:17-0400 Heart rate 75 /min Prsicila Laguerre 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 - NUCLEAR PLANT INSTRUMENT TECHNICIAN Work Phone: [facility] [employer] 12-24-2024 10:17-0400 Systolic blood pressure 104 mm[Hg] Priscila Laguerre 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 - NUCLEAR PLANT INSTRUMENT TECHNICIAN Work Phone: [facility] [employer] 12-11-2024 12:53-0400 Body height 177.8 cm Nallely Alas DPM Work Phone: [facility] [employer] 12-11-2024 12:53-0400 Body mass index (BMI) [Ratio] 28.98 kg/m2 Nallely Alas DPM Work Phone: [facility] [employer] 12-11-2024 12:53-0400 Body temperature 96.69 [degF] Nallely Alas DPM Work Phone: [facility] 12-11-2024 12:53-0400 Body weight 91.63 kg Nallely Alas DPM Work Phone: [facility] 12-11-2024 12:53-0400 Diastolic blood pressure 76 mm[Hg] Nallely Alas DPM Work Phone: [facility] [employer] 12-11-2024 12:53-0400 Heart rate 80 /min Nallely Alas DPM Work Phone: [facility] [employer] 12-11-2024 12:53-0400 Systolic blood pressure 146 mm[Hg] Nallely Alas DPM Work Phone: [facility] [employer] 12-05-2024 07:40-0400 Body temperature 96.91 [degF] León Nesheim DO Work Phone: [facility] [employer] 12-05-2024 07:40-0400 Diastolic blood pressure 67 mm[Hg] León Nesheim DO Work Phone: [facility] [employer] 12-05-2024 07:40-0400 Heart rate 63 /min León Nesheim DO Work Phone: [facility] [employer] 12-05-2024 07:40-0400 Respiratory rate 18 /min León Nesheim DO Work Phone: [facility] [employer] 12-05-2024 07:40-0400 SaO2% (BldA) [Mass fraction] 99 % León Nesheim DO Work Phone: [facility] [employer] 12-05-2024 07:40-0400 Systolic blood pressure 120 mm[Hg] León Nesheim DO Work Phone: [facility] 12-03-2024 09:45-0400 Body height 177.8 cm León Nesheim DO Work Phone: [facility] [employer] 12-03-2024 01:06-0400 Body mass index (BMI) [Ratio] 29.03 kg/m2 León Nesheim DO Work Phone: [facility] [employer] 12-03-2024 01:06-0400 Body weight 91.76 kg León Nesheim DO Work Phone: [facility] 11-27-2024 08:53-0400 Body temperature 96.49 [degF] Marielos Blair 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 - NUCLEAR PLANT INSTRUMENT TECHNICIAN Work Phone: [facility] [employer] 11-27-2024 08:53-0400 Diastolic blood pressure 41 mm[Hg] Marielos Blair 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 - NUCLEAR PLANT INSTRUMENT TECHNICIAN Work Phone: [facility] 11-27-2024 08:53-0400 Heart rate 59 /min Marielos Blair 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 - NUCLEAR PLANT INSTRUMENT TECHNICIAN Work Phone: [facility] 11-27-2024 08:53-0400 Respiratory rate 18 /min Marielos Blair 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 - NUCLEAR PLANT INSTRUMENT TECHNICIAN Work Phone: [facility] [employer] 11-27-2024 08:53-0400 Systolic blood pressure 89 mm[Hg] Marielos Blair 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 - NUCLEAR PLANT INSTRUMENT TECHNICIAN Work Phone: [facility] [employer] 11-20-2024 12:51-0400 Body temperature 97.81 [degF] Nallely Jovon DPM Work Phone: [facility] [employer] 11-20-2024 12:51-0400 Diastolic blood pressure 67 mm[Hg] Nallely Jovon DPM Work Phone: [facility] [employer] 11-20-2024 12:51-0400 Heart rate 62 /min Nallely Jovon DPM Work Phone: [facility] 11-20-2024 12:51-0400 Respiratory rate 18 /min Nallely Jovon DPM Work Phone: [facility] [employer] 11-20-2024 12:51-0400 Systolic blood pressure 140 mm[Hg] Nallely Jovon DPM Work Phone: [facility] 11-13-2024 13:54-0400 Body temperature 97.3 [degF] Nallely Jovon DPM Work Phone: [facility] [employer] 11-13-2024 13:54-0400 Diastolic blood pressure 62 mm[Hg] Nallely Jovon DPM Work Phone: [facility] 11-13-2024 13:54-0400 Heart rate 71 /min Nallely Jovon DPM Work Phone: [facility] [employer] 11-13-2024 13:54-0400 Respiratory rate 18 /min Nallely Jovon DPM Work Phone: [facility] [employer] 11-13-2024 13:54-0400 Systolic blood pressure 130 mm[Hg] Nallely Jovon DPM Work Phone: [facility] 11-06-2024 12:50-0400 Body temperature 97.81 [degF] Nallely Jovon DPM Work Phone: [facility] 11-06-2024 12:50-0400 Diastolic blood pressure 68 mm[Hg] Nallely Jovon DPM Work Phone: [facility] 11-06-2024 12:50-0400 Heart rate 64 /min Nallely Jovon DPM Work Phone: [facility] 11-06-2024 12:50-0400 Respiratory rate 18 /min Nallely Jovon DPM Work Phone: [facility] 11-06-2024 12:50-0400 Systolic blood pressure 124 mm[Hg] Nallely Jovon DPM Work Phone: [facility] 10-16-2024 13:02-0500 Body temperature 98.6 [degF] Nallely Jovon DPM Work Phone: [facility] 10-16-2024 13:02-0500 Diastolic blood pressure 76 mm[Hg] Nallely Jovon DPM Work Phone: [facility] [employer] 10-16-2024 13:02-0500 Heart rate 78 /min Nallely Jovon DPM Work Phone: [facility] [employer] 10-16-2024 13:02-0500 Respiratory rate 18 /min Nallely Jovon DPM Work Phone: [facility] [employer] 10-16-2024 13:02-0500 Systolic blood pressure 144 mm[Hg] Nallely Jovon DPM Work Phone: [facility] [employer] 10-15-2024 10:51-0500 Diastolic blood pressure 69 mm[Hg] Kraig Wright MD Work Phone: [facility] 10-15-2024 10:51-0500 Heart rate 76 /min Kraig Wright MD Work Phone: [facility] 10-15-2024 10:51-0500 Systolic blood pressure 102 mm[Hg] Kraig Wright MD Work Phone: [facility] 10-15-2024 10:47-0500 Body height 179.7 cm Kraig Wright MD Work Phone: [facility] 10-15-2024 10:47-0500 Body mass index (BMI) [Ratio] 28.01 kg/m2 Kraig Wright MD Work Phone: [facility] 10-15-2024 10:47-0500 Body weight 90.45 kg Kraig Wright MD Work Phone: [facility] 10-09-2024 12:32-0500 Body temperature 97 [degF] Nallely Jovon DPM Work Phone: [facility] 10-09-2024 12:32-0500 Diastolic blood pressure 71 mm[Hg] Nallely Jovon DPM Work Phone: [facility] 10-09-2024 12:32-0500 Heart rate 67 /min Nallely Jovon DPM Work Phone: [facility] [employer] 10-09-2024 12:32-0500 Respiratory rate 18 /min Nallely Jovon DPM Work Phone: [facility] [employer] 10-09-2024 12:32-0500 Systolic blood pressure 145 mm[Hg] Nallely Jovon DPM Work Phone: [facility] 10-02-2024 09:06-0500 Body temperature 97.7 [degF] Marieloslivier Blair 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 - NUCLEAR PLANT INSTRUMENT TECHNICIAN Work Phone: [facility] [employer] 10-02-2024 09:06-0500 Diastolic blood pressure 71 mm[Hg] Marielos Blair 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 - NUCLEAR PLANT INSTRUMENT TECHNICIAN Work Phone: [facility] [employer] 10-02-2024 09:06-0500 Heart rate 66 /min Marielos Blair 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 - NUCLEAR PLANT INSTRUMENT TECHNICIAN Work Phone: [facility] [employer] 10-02-2024 09:06-0500 Respiratory rate 18 /min Marielos Blair 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 - NUCLEAR PLANT INSTRUMENT TECHNICIAN Work Phone: [facility] [employer] 10-02-2024 09:06-0500 Systolic blood pressure 133 mm[Hg] Marieloslivier Blair 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 - NUCLEAR PLANT INSTRUMENT TECHNICIAN Work Phone: [facility] [employer] 09-24-2024 09:09-0500 Heart rate 63 /min Janet Niño MD Work Phone: [facility] [employer] 09-24-2024 07:38-0500 Body temperature 96.3 [degF] Janet Niño MD Work Phone: [facility] [employer] 09-24-2024 07:38-0500 Diastolic blood pressure 66 mm[Hg] Janet Niño MD Work Phone: [facility] [employer] 09-24-2024 07:38-0500 Respiratory rate 16 /min Janet Niño MD Work Phone: [facility] [employer] 09-24-2024 07:38-0500 SaO2% (BldA) [Mass fraction] 100 % Janet Niño MD Work Phone: [facility] [employer] 09-24-2024 07:38-0500 Systolic blood pressure 133 mm[Hg] Janet Niño MD Work Phone: [facility] 09-19-2024 12:46-0500 Body height 177.8 cm Janet Niño MD Work Phone: [facility] 09-17-2024 13:20-0500 Diastolic blood pressure 75 mm[Hg] Mejgon Denia DO Work Phone: [facility] 09-17-2024 13:20-0500 Heart rate 75 /min Mejgon Denia DO Work Phone: [facility] 09-17-2024 13:20-0500 Respiratory rate 14 /min Mejgon Denia DO Work Phone: [facility] 09-17-2024 13:20-0500 SaO2% (BldA) [Mass fraction] 100 % Mejgon Denia DO Work Phone: [facility] 09-17-2024 13:20-0500 Systolic blood pressure 132 mm[Hg] Mejgon Denia DO Work Phone: [facility] 09-17-2024 12:04-0500 Body height 177.8 cm Mejgon Denia DO Work Phone: [facility] 09-17-2024 12:04-0500 Body mass index (BMI) [Ratio] 28.7 kg/m2 Mejgon Denia DO Work Phone: [facility] 09-17-2024 12:04-0500 Body temperature 97.81 [degF] Mejgon Denia DO Work Phone: [facility] 09-17-2024 12:04-0500 Body weight 90.72 kg Mejgon Denia DO Work Phone: [facility] 03-19-2024 13:52-0400 Body temperature 96.21 [degF] Nader Navarro MD Work Phone: [employer] 03-19-2024 13:52-0400 Diastolic blood pressure 70 mm[Hg] Nader Navarro MD Work Phone: [employer] 03-19-2024 13:52-0400 Heart rate 64 /min Nader Navarro MD Work Phone: [facility] [employer] 03-19-2024 13:52-0400 Respiratory rate 16 /min Nader Navarro MD Work Phone: [place] [employer] 03-19-2024 13:52-0400 Systolic blood pressure 154 mm[Hg] Nader Navarro MD Work Phone: [place] [employer] 03-05-2024 13:18-0400 Body temperature 96.3 [degF] Nader Navarro MD Work Phone: [facility] [employer] 03-05-2024 13:18-0400 Diastolic blood pressure 60 mm[Hg] Nader Navarro MD Work Phone: [place] [employer] 03-05-2024 13:18-0400 Heart rate 67 /min Nader Navarro MD Work Phone: [place] [employer] 03-05-2024 13:18-0400 Respiratory rate 16 /min Nader Navarro MD Work Phone: [employer] 03-05-2024 13:18-0400 Systolic blood pressure 137 mm[Hg] Nader Navarro MD Work Phone: [facility] [employer] 01-30-2024 13:52-0400 Diastolic blood pressure 75 mm[Hg] Nader Navarro MD Work Phone: [facility] [employer] 01-30-2024 13:52-0400 Heart rate 107 /min Nader Navarro MD Work Phone: [employer] 01-30-2024 13:52-0400 Systolic blood pressure 123 mm[Hg] Nader Navarro MD Work Phone: [facility] [employer] 01-30-2024 13:51-0400 Body temperature 96.3 [degF] Nader Navarro MD Work Phone: [facility] [employer] 01-30-2024 13:51-0400 Respiratory rate 16 /min Nader Navarro MD Work Phone: [facility] [employer] 01-23-2024 13:33-0400 Body temperature 96.91 [degF] Nader Navarro MD Work Phone: [facility] [employer] 01-23-2024 13:33-0400 Diastolic blood pressure 70 mm[Hg] Nader Navarro MD Work Phone: [facility] [employer] 01-23-2024 13:33-0400 Heart rate 83 /min Nader Navarro MD Work Phone: [facility] [employer] 01-23-2024 13:33-0400 Respiratory rate 16 /min Nader Navarro MD Work Phone: [facility] [employer] 01-23-2024 13:33-0400 Systolic blood pressure 154 mm[Hg] Nader Navarro MD Work Phone: [facility] [employer] 01-09-2024 14:02-0400 Body temperature 97.11 [degF] Nader Navarro MD Work Phone: [facility] [employer] 01-09-2024 14:02-0400 Diastolic blood pressure 82 mm[Hg] Nader Navarro MD Work Phone: [facility] 01-09-2024 14:02-0400 Heart rate 76 /min Nader Navarro MD Work Phone: [facility] 01-09-2024 14:02-0400 Respiratory rate 16 /min Nader Navarro MD Work Phone: [facility] 01-09-2024 14:02-0400 Systolic blood pressure 172 mm[Hg] Nader Navarro MD Work Phone: [facility] 12-19-2023 12:32-0400 Body temperature 97.9 [degF] Nader Navarro MD Work Phone: [facility] 12-19-2023 12:32-0400 Diastolic blood pressure 70 mm[Hg] Nader Navarro MD Work Phone: [facility] 12-19-2023 12:32-0400 Heart rate 72 /min Nader Navarro MD Work Phone: [facility] 12-19-2023 12:32-0400 Respiratory rate 16 /min Nader Navarro MD Work Phone: [facility] 12-19-2023 12:32-0400 Systolic blood pressure 165 mm[Hg] Nader Navarro MD Work Phone: [facility] [employer] 12-12-2023 14:41-0400 Body temperature 97.3 [degF] Nader Navarro MD Work Phone: [facility] 12-12-2023 14:41-0400 Diastolic blood pressure 67 mm[Hg] Nader Navarro MD Work Phone: [facility] 12-12-2023 14:41-0400 Heart rate 76 /min Nader Navarro MD Work Phone: [facility] 12-12-2023 14:41-0400 Respiratory rate 16 /min Nader Navarro MD Work Phone: [facility] 12-12-2023 14:41-0400 Systolic blood pressure 147 mm[Hg] Nader Navarro MD Work Phone: [facility] 11-25-2023 15:10-0400 Body temperature 97.2 [degF] Nader Navarro MD Work Phone: [facility] 11-25-2023 15:10-0400 Diastolic blood pressure 65 mm[Hg] Nader Navarro MD Work Phone: [facility] 11-25-2023 15:10-0400 Heart rate 79 /min Nader Navarro MD Work Phone: [facility] 11-25-2023 15:10-0400 Respiratory rate 16 /min Nader Navarro MD Work Phone: [facility] 11-25-2023 15:10-0400 Systolic blood pressure 141 mm[Hg] Nader Navarro MD Work Phone: [facility] 11-14-2023 13:32-0400 Body temperature 96.3 [degF] Nader Navarro MD Work Phone: [facility] 11-14-2023 13:32-0400 Diastolic blood pressure 79 mm[Hg] Nader Navarro MD Work Phone: [facility] 11-14-2023 13:32-0400 Heart rate 71 /min Nader Navarro MD Work Phone: [facility] 11-14-2023 13:32-0400 Respiratory rate 16 /min Nader Navarro MD Work Phone: [facility] 11-14-2023 13:32-0400 Systolic blood pressure 132 mm[Hg] Nader Navarro MD Work Phone: [facility] 11-12-2023 09:07-0400 Diastolic blood pressure 98 mm[Hg] Norberto Rubio MD Work Phone: [facility] 11-12-2023 09:07-0400 Heart rate 82 /min Norberto Rubio MD Work Phone: [facility] 11-12-2023 09:07-0400 Systolic blood pressure 132 mm[Hg] Norberto Rubio MD Work Phone: [facility] 11-12-2023 08:38-0400 Body temperature 97.5 [degF] Norberto Rubio MD Work Phone: [facility] 11-12-2023 08:38-0400 Respiratory rate 17 /min Norberto Rubio MD Work Phone: [facility] 11-12-2023 08:38-0400 SaO2% (BldA) [Mass fraction] 97 % Norberto Rubio MD Work Phone: [facility] 11-12-2023 06:03-0400 Body mass index (BMI) [Ratio] 30.15 kg/m2 Norberto Rubio MD Work Phone: [facility] 11-12-2023 06:03-0400 Body weight 95.3 kg Norberto Rubio MD Work Phone: [facility] 11-10-2023 19:52-0400 Body height 177.8 cm Norberto Rubio MD Work Phone: [facility] 10-17-2023 13:38-0500 Body temperature 96.91 [degF] Nader Navarro MD Work Phone: [facility] 10-17-2023 13:38-0500 Diastolic blood pressure 72 mm[Hg] Nader Navarro MD Work Phone: [facility] 10-17-2023 13:38-0500 Heart rate 76 /min Nader Navarro MD Work Phone: [facility] 10-17-2023 13:38-0500 Respiratory rate 16 /min Nader Navarro MD Work Phone: [facility] 10-17-2023 13:38-0500 Systolic blood pressure 154 mm[Hg] Nader Navarro MD Work Phone: [facility] 10-03-2023 13:39-0500 Body temperature 95.9 [degF] Nader Navarro MD Work Phone: [facility] 10-03-2023 13:39-0500 Diastolic blood pressure 61 mm[Hg] Nader Navarro MD Work Phone: [facility] 10-03-2023 13:39-0500 Heart rate 100 /min aNder Navarro MD Work Phone: [facility] 10-03-2023 13:39-0500 Respiratory rate 16 /min Nader Navarro MD Work Phone: [facility] 10-03-2023 13:39-0500 Systolic blood pressure 124 mm[Hg] Nader Navarro MD Work Phone: [facility] 09-19-2023 13:30-0500 Body temperature 96.01 [degF] Nader Navarro MD Work Phone: [facility] 09-19-2023 13:30-0500 Diastolic blood pressure 74 mm[Hg] Nader Navarro MD Work Phone: [facility] 09-19-2023 13:30-0500 Heart rate 82 /min Nader Navarro MD Work Phone: [facility] 09-19-2023 13:30-0500 Respiratory rate 16 /min Nader Navarro MD Work Phone: [facility] 09-19-2023 13:30-0500 Systolic blood pressure 162 mm[Hg] Nader Navarro MD Work Phone: [facility] 09-05-2023 13:30-0500 Diastolic blood pressure 66 mm[Hg] Nader Navarro MD Work Phone: [facility] 09-05-2023 13:30-0500 Heart rate 80 /min Nader Navarro MD Work Phone: [facility] 09-05-2023 13:30-0500 Systolic blood pressure 142 mm[Hg] Nader Navarro MD Work Phone: [facility] 09-05-2023 13:29-0500 Body temperature 97 [degF] Nader Navarro MD Work Phone: [facility] 09-05-2023 13:29-0500 Respiratory rate 16 /min Nader Navarro MD Work Phone: [facility] 08-22-2023 13:18-0500 Body temperature 96.69 [degF] Nader Navarro MD Work Phone: [facility] 08-22-2023 13:18-0500 Diastolic blood pressure 72 mm[Hg] Nader Navarro MD Work Phone: [facility] 08-22-2023 13:18-0500 Heart rate 80 /min Nader Navarro MD Work Phone: [facility] 08-22-2023 13:18-0500 Respiratory rate 16 /min Nader Navarro MD Work Phone: [facility] 08-22-2023 13:18-0500 Systolic blood pressure 136 mm[Hg] Nader Navarro MD Work Phone: [facility] 08-01-2023 13:34-0500 Body temperature 96.3 [degF] Nader Navarro MD Work Phone: [facility] 08-01-2023 13:34-0500 Diastolic blood pressure 67 mm[Hg] Nader Navarro MD Work Phone: [facility] 08-01-2023 13:34-0500 Heart rate 73 /min Nader Navarro MD Work Phone: [facility] 08-01-2023 13:34-0500 Respiratory rate 16 /min Nader Navarro MD Work Phone: [facility] 08-01-2023 13:34-0500 Systolic blood pressure 138 mm[Hg] Nader Navarro MD Work Phone: [facility] 07-25-2023 13:27-0500 Diastolic blood pressure 71 mm[Hg] Nader Navarro MD Work Phone: [facility] 07-25-2023 13:27-0500 Heart rate 74 /min Nader Navarro MD Work Phone: [facility] 07-25-2023 13:27-0500 Systolic blood pressure 151 mm[Hg] Nader Navarro MD Work Phone: [facility] 07-25-2023 13:26-0500 Body temperature 97 [degF] Nader Navarro MD Work Phone: [facility] 07-25-2023 13:26-0500 Respiratory rate 16 /min Nader Navarro MD Work Phone: [facility] 07-11-2023 13:45-0500 Diastolic blood pressure 74 mm[Hg] Nader Navarro MD Work Phone: [facility] 07-11-2023 13:45-0500 Heart rate 108 /min Nader Navarro MD Work Phone: [facility] 07-11-2023 13:45-0500 Systolic blood pressure 146 mm[Hg] Nader Navarro MD Work Phone: [facility] 07-11-2023 13:41-0500 Body temperature 97.3 [degF] Nader Navarro MD Work Phone: [facility] 07-11-2023 13:41-0500 Respiratory rate 16 /min Nader Navarro MD Work Phone: [facility] 06-20-2023 13:26-0500 Body temperature 96.3 [degF] Nader Navarro MD Work Phone: [facility] [employer] 06-20-2023 13:26-0500 Diastolic blood pressure 72 mm[Hg] Nader Navarro MD Work Phone: [place] [employer] 06-20-2023 13:26-0500 Heart rate 77 /min Nader Navarro MD Work Phone: [facility] 06-20-2023 13:26-0500 Respiratory rate 16 /min Nader Navarro MD Work Phone: [facility] 06-20-2023 13:26-0500 Systolic blood pressure 166 mm[Hg] Nader Navarro MD Work Phone: [facility] 06-06-2023 13:38-0400 Diastolic blood pressure 85 mm[Hg] Nader Navarro MD Work Phone: [facility] 06-06-2023 13:38-0400 Heart rate 77 /min Nader Navarro MD Work Phone: [facility] 06-06-2023 13:38-0400 Systolic blood pressure 141 mm[Hg] Nader Navarro MD Work Phone: [facility] 06-06-2023 13:37-0400 Body temperature 97.3 [degF] Nader Navarro MD Work Phone: [facility] 06-06-2023 13:37-0400 Respiratory rate 16 /min Nader Navarro MD Work Phone: [facility] 05-23-2023 13:45-0400 Body temperature 97.11 [degF] Nader Navarro MD Work Phone: [facility] 05-23-2023 13:45-0400 Respiratory rate 16 /min Nader Navarro MD Work Phone: [place] [employer] [facility] [employer] 05-06-2023 13:25-0400 Body temperature 96.69 [degF] Nader Navarro MD Work Phone: [facility] 05-06-2023 13:25-0400 Diastolic blood pressure 67 mm[Hg] Nader Navarro MD Work Phone: [facility] 05-06-2023 13:25-0400 Heart rate 80 /min Nader Navarro MD Work Phone: [facility] 05-06-2023 13:25-0400 Respiratory rate 14 /min Nader Navarro MD Work Phone: [facility] 05-06-2023 13:25-0400 Systolic blood pressure 146 mm[Hg] Nader Navarro MD Work Phone: [facility] 04-18-2023 13:22-0400 Diastolic blood pressure 68 mm[Hg] Nader Navarro MD Work Phone: [facility] 04-18-2023 13:22-0400 Heart rate 64 /min Nader Navarro MD Work Phone: [facility] 04-18-2023 13:22-0400 Systolic blood pressure 148 mm[Hg] Nader Navarro MD Work Phone: [facility] 04-18-2023 13:09-0400 Body temperature 97.3 [degF] Nader Navarro MD Work Phone: [facility] 04-18-2023 13:09-0400 Respiratory rate 16 /min Nader Navarro MD Work Phone: [facility] 03-21-2023 13:32-0400 Body temperature 96.21 [degF] Nader Navarro MD Work Phone: [facility] 03-21-2023 13:32-0400 Diastolic blood pressure 79 mm[Hg] Nader Navarro MD Work Phone: [facility] 03-21-2023 13:32-0400 Heart rate 81 /min Nader Navarro MD Work Phone: [facility] 03-21-2023 13:32-0400 Respiratory rate 16 /min Nader Navarro MD Work Phone: [facility] 03-21-2023 13:32-0400 Systolic blood pressure 152 mm[Hg] Nader Navarro MD Work Phone: [facility] 03-07-2023 13:36-0400 Body temperature 97.81 [degF] Nader Navarro MD Work Phone: [facility] [employer] 03-07-2023 13:36-0400 Diastolic blood pressure 77 mm[Hg] Nader Navarro MD Work Phone: [facility] 03-07-2023 13:36-0400 Heart rate 101 /min Nader Navarro MD Work Phone: [facility] 03-07-2023 13:36-0400 Respiratory rate 16 /min Nader Navarro MD Work Phone: [facility] 03-07-2023 13:36-0400 Systolic blood pressure 130 mm[Hg] Nader Navarro MD Work Phone: [facility] 02-01-2022 15:17-0400 Body temperature 97.5 [degF] Estiven Mcfadden DPM Work Phone: [facility] 02-01-2022 15:17-0400 Diastolic blood pressure 73 mm[Hg] Estiven Mcfadden DPM Work Phone: [facility] 02-01-2022 15:17-0400 Heart rate 74 /min Estiven Mcfadden DPM Work Phone: [facility] 02-01-2022 15:17-0400 Respiratory rate 18 /min Estiven Mcfadden DPM Work Phone: [facility] 02-01-2022 15:17-0400 Systolic blood pressure 145 mm[Hg] Estiven Mcfadden DPM Work Phone: [facility] 01-11-2022 14:55-0400 Body temperature 97.81 [degF] Estiven Mcfadden DPM Work Phone: [facility] 01-11-2022 14:55-0400 Diastolic blood pressure 67 mm[Hg] Estiven Mcfadden DPM Work Phone: [facility] 06-02-2022 14:55-0400 Heart rate 74 /min Estiven Mcfadden DPM Work Phone: [place] [employer] [facility] [employer] 01-11-2022 14:55-0400 Respiratory rate 18 /min Estiven Mcfadden DPM Work Phone: [place] [employer] [facility] [employer] 01-11-2022 14:55-0400 Systolic blood pressure 139 mm[Hg] Estiven Mcfadden DPM Work Phone: [place] [facility] [employer] 12-28-2021 14:53-0400 Body temperature 97.11 [degF] Estiven Mcfadden DPM Work Phone: [facility] 12-28-2021 14:53-0400 Diastolic blood pressure 77 mm[Hg] Estiven Mcfadden DPM Work Phone: [facility] [employer] [facility] [employer] 12-28-2021 14:53-0400 Heart rate 74 /min Estiven Mcfadden DPM Work Phone: [facility] [employer] [facility] [employer] 12-28-2021 14:53-0400 Respiratory rate 18 /min Estiven Mcfadden DPM Work Phone: [facility] 12-28-2021 14:53-0400 Systolic blood pressure 142 mm[Hg] Estiven Mcfadden DPM Work Phone: [facility] [employer] [facility] [employer] 12-14-2021 12:54-0400 Body temperature 97.81 [degF] Estiven Mcfadden DPM Work Phone: [facility] [employer] 12-14-2021 12:54-0400 Diastolic blood pressure 89 mm[Hg] Estiven Mcfadden DPM Work Phone: [facility] 12-14-2021 12:54-0400 Heart rate 71 /min Estiven Mcfadden DPM Work Phone: [facility] 12-14-2021 12:54-0400 Respiratory rate 16 /min Estiven Mcfadden DPM Work Phone: [place] [employer] [facility] [employer] 12-14-2021 12:54-0400 Systolic blood pressure 172 mm[Hg] Estiven Mcfadden DPM Work Phone: [place] [facility] [employer] 11-23-2021 13:05-0400 Diastolic blood pressure 82 mm[Hg] Estiven Mcfadden DPM Work Phone: [place] [employer] [facility] [employer] 11-23-2021 13:05-0400 Heart rate 71 /min Estiven Mcfadden DPM Work Phone: [place] [employer] [facility] [employer] 11-23-2021 13:05-0400 Systolic blood pressure 165 mm[Hg] Estiven Mcfadden DPM Work Phone: [place] [facility] [employer] 11-23-2021 12:55-0400 Body temperature 97.9 [degF] Estiven Mcfadden DPM Work Phone: [place] [facility] [employer] 11-23-2021 12:55-0400 Respiratory rate 16 /min Estiven Mcfadden DPM Work Phone: [facility] [facility] [employer] 11-09-2021 13:00-0400 Body temperature 98.29 [degF] Ashlie Cardenas MD Work Phone: [facility] [facility] [employer] 11-09-2021 13:00-0400 Diastolic blood pressure 87 mm[Hg] Ashlie Cardenas MD Work Phone: [place] [facility] [employer] 11-09-2021 13:00-0400 Heart rate 76 /min Ashlie Cardenas MD Work Phone: [place] [facility] [employer] 11-09-2021 13:00-0400 Respiratory rate 18 /min Ashlie Cardenas MD Work Phone: [place] [facility] [employer] 11-09-2021 13:00-0400 Systolic blood pressure 191 mm[Hg] Ashlie Cardenas MD Work Phone: [place] [facility] [employer] 10-26-2021 10:36-0400 Body temperature 98.29 [degF] Nader Navarro MD Work Phone: [facility] [employer] 10-26-2021 10:36-0400 Diastolic blood pressure 72 mm[Hg] Nader Navarro MD Work Phone: [facility] [employer] 10-26-2021 10:36-0400 Heart rate 78 /min Nader Navarro MD Work Phone: [facility] 10-26-2021 10:36-0400 Respiratory rate 16 /min Nader Navarro MD Work Phone: [facility] 10-26-2021 10:36-0400 Systolic blood pressure 140 mm[Hg] Nader Navarro MD Work Phone: [facility] 10-05-2021 10:11-0500 Body temperature 97.59 [degF] Nader Navarro MD Work Phone: [facility] 10-05-2021 10:11-0500 Diastolic blood pressure 76 mm[Hg] Nader Navarro MD Work Phone: [facility] 10-05-2021 10:11-0500 Heart rate 74 /min Nader Navarro MD Work Phone: [facility] 10-05-2021 10:11-0500 Respiratory rate 16 /min Nader Navarro MD Work Phone: [facility] 10-05-2021 10:11-0500 Systolic blood pressure 154 mm[Hg] Nader Navarro MD Work Phone: [facility] 09-21-2021 10:08-0500 Body temperature 98.71 [degF] Nader Navarro MD Work Phone: [facility] 09-21-2021 10:08-0500 Diastolic blood pressure 71 mm[Hg] Nader Navarro MD Work Phone: [facility] 09-21-2021 10:08-0500 Heart rate 75 /min Nader Navarro MD Work Phone: [facility] 09-21-2021 10:08-0500 Respiratory rate 16 /min Nader Navarro MD Work Phone: [facility] 09-21-2021 10:08-0500 Systolic blood pressure 154 mm[Hg] Nader Navarro MD Work Phone: [facility] 08-31-2021 10:29-0500 Body temperature 98.4 [degF] Nader Navarro MD Work Phone: [facility] 08-31-2021 10:29-0500 Diastolic blood pressure 73 mm[Hg] Nader Navarro MD Work Phone: [facility] 08-31-2021 10:29-0500 Heart rate 69 /min Nader Navarro MD Work Phone: [facility] 08-31-2021 10:29-0500 Respiratory rate 16 /min Nader Navarro MD Work Phone: [facility] 08-31-2021 10:29-0500 Systolic blood pressure 161 mm[Hg] Nader Navarro MD Work Phone: [facility] 08-17-2021 10:14-0500 Body temperature 98.29 [degF] Nader Navarro MD Work Phone: [facility] 08-17-2021 10:14-0500 Diastolic blood pressure 83 mm[Hg] Ndaer Navarro MD Work Phone: [facility] 08-17-2021 10:14-0500 Heart rate 77 /min Nader Navarro MD Work Phone: [facility] 08-17-2021 10:14-0500 Respiratory rate 16 /min Nader Navarro MD Work Phone: [facility] 08-17-2021 10:14-0500 Systolic blood pressure 183 mm[Hg] Nader Navarro MD Work Phone: [facility] 08-03-2021 10:12-0500 Body temperature 97.9 [degF] Nader Navarro MD Work Phone: [facility] 08-03-2021 10:12-0500 Diastolic blood pressure 74 mm[Hg] Nader Navarro MD Work Phone: [facility] 08-03-2021 10:12-0500 Heart rate 73 /min Nader Navarro MD Work Phone: [facility] 08-03-2021 10:12-0500 Respiratory rate 16 /min Nader Navarro MD Work Phone: [facility] 08-03-2021 10:12-0500 Systolic blood pressure 143 mm[Hg] Nader Navarro MD Work Phone: [place] [facility] 07-20-2021 10:05-0500 Body temperature 98.6 [degF] Ashlie Cardenas MD Work Phone: [facility] [facility] 07-20-2021 10:05-0500 Diastolic blood pressure 71 mm[Hg] Ashlie Cardenas MD Work Phone: [place] [facility] 07-20-2021 10:05-0500 Heart rate 76 /min Ashlie Cardenas MD Work Phone: [place] [facility] 07-20-2021 10:05-0500 Respiratory rate 16 /min Ashlie Cardenas MD Work Phone: [place] [facility] 07-20-2021 10:05-0500 Systolic blood pressure 148 mm[Hg] Ashlie Cardenas MD Work Phone: [place] [facility] 07-13-2021 09:03-0500 Body temperature 98.49 [degF] Nader Navarro MD Work Phone: [facility] [employer] 07-13-2021 09:03-0500 Diastolic blood pressure 88 mm[Hg] Nader Navarro MD Work Phone: [place] [facility] 07-13-2021 09:03-0500 Heart rate 85 /min Nader Navarro MD Work Phone: [place] [facility] 07-13-2021 09:03-0500 Respiratory rate 16 /min Nader Navarro MD Work Phone: [facility] [employer] 07-13-2021 09:03-0500 Systolic blood pressure 152 mm[Hg] Nader Navarro MD Work Phone: [place] [facility] 06-29-2021 10:14-0500 Body temperature 99.3 [degF] Nader Navarro MD Work Phone: [facility] [facility] 06-29-2021 10:14-0500 Diastolic blood pressure 67 mm[Hg] Nader Navarro MD Work Phone: [facility] 06-29-2021 10:14-0500 Heart rate 77 /min Nader Navarro MD Work Phone: [facility] 06-29-2021 10:14-0500 Respiratory rate 16 /min Nader Navarro MD Work Phone: [facility] 06-29-2021 10:14-0500 Systolic blood pressure 154 mm[Hg] Nader Navarro MD Work Phone: [facility] 06-22-2021 09:42-0500 Body temperature 98.6 [degF] Nader Navarro MD Work Phone: [facility] 06-22-2021 09:42-0500 Diastolic blood pressure 65 mm[Hg] Nader Navarro MD Work Phone: [facility] 06-22-2021 09:42-0500 Heart rate 80 /min Nader Navarro MD Work Phone: [facility] 06-22-2021 09:42-0500 Respiratory rate 16 /min Nader Navarro MD Work Phone: [facility] 06-22-2021 09:42-0500 Systolic blood pressure 143 mm[Hg] Nader Navarro MD Work Phone: [facility] 03-31-2021 10:52-0400 Body temperature 98.29 [degF] Nader Navarro MD Work Phone: [facility] 03-31-2021 10:52-0400 Diastolic blood pressure 71 mm[Hg] Nader Navarro MD Work Phone: [facility] 03-31-2021 10:52-0400 Heart rate 73 /min Nader Navarro MD Work Phone: [facility] 03-31-2021 10:52-0400 Respiratory rate 16 /min Nader Navarro MD Work Phone: [facility] 03-31-2021 10:52-0400 Systolic blood pressure 151 mm[Hg] Nader Navarro MD Work Phone: [facility] 03-24-2021 11:11-0400 Diastolic blood pressure 73 mm[Hg] Nader Navarro MD Work Phone: [facility] 03-24-2021 11:11-0400 Heart rate 68 /min Nader Navarro MD Work Phone: [facility] 03-24-2021 11:11-0400 Systolic blood pressure 163 mm[Hg] Nader Navarro MD Work Phone: [facility] 03-24-2021 11:08-0400 Body temperature 99.1 [degF] Nader Navarro MD Work Phone: [facility] 03-24-2021 11:08-0400 Respiratory rate 16 /min Nader Navarro MD Work Phone: [facility] 03-17-2021 14:10-0400 Body temperature 98.4 [degF] Nader Navarro MD Work Phone: [facility] 03-17-2021 14:10-0400 Diastolic blood pressure 72 mm[Hg] Nader Navarro MD Work Phone: [facility] 03-17-2021 14:10-0400 Heart rate 70 /min Nader Navarro MD Work Phone: [facility] 03-17-2021 14:10-0400 Respiratory rate 18 /min Nader Navarro MD Work Phone: [facility] 03-17-2021 14:10-0400 Systolic blood pressure 158 mm[Hg] Nader Navarro MD Work Phone: [facility] 10-21-2020 18:25-0500 Pulse (Heart Rate) 81 /min Antwan Rebolledo [facility] 10-21-2020 18:25-0500 Respiratory Rate 19 /min Antwan Rebolledo [facility] 10-21-2020 15:02-0500 Body Temperature 97.5 [degF] Antwan Rebolledo [facility] 10-21-2020 15:02-0500 BP Diastolic 58 mm[Hg] Antwan Rebolledo [facility] 10-21-2020 15:02-0500 BP Systolic 118 mm[Hg] Antwan Rebolledo [facility] 10-21-2020 15:02-0500 Pulse Oximetry 99 % Antwan Rebolledo [facility] 10-16-2020 02:59-0500 BMI (Body Mass Index) 27.99 kg/m2 Antwan Hart [facility] 10-16-2020 02:59-0500 Body weight 91.04 kg Antwan Rebolledo [facility] 10-16-2020 02:59-0500 Height 180.3 cm Antwan Rebolledo [facility] 04-07-2020 10:17-0400 Body Temperature 98.8 [degF] [facility] 04-07-2020 10:17-0400 BP Diastolic 67 mm[Hg] [facility] 04-07-2020 10:17-0400 BP Systolic 150 mm[Hg] [facility] 04-07-2020 10:17-0400 Pulse (Heart Rate) 72 /min [facility] 04-07-2020 10:17-0400 Respiratory Rate 18 /min [facility] 03-31-2020 10:17-0400 Body Temperature 98.29 [degF] [facility] 03-31-2020 10:17-0400 BP Diastolic 72 mm[Hg] [facility] 03-31-2020 10:17-0400 BP Systolic 146 mm[Hg] [facility] 03-31-2020 10:17-0400 Pulse (Heart Rate) 74 /min [facility] h Encounters Encounter Date Encounter Type Care Provider Facility Start: 04-19-2025 ambulatory Prasnana Caceres ty:[facility] Start: 04-14-2025 End: 04-14-2025 ambulatory Tiarra Rodriguez Clinical Communication Start: 04-14-2025 End: 04-14-2025 Patient encounter procedure Tiarra Rodriguez Clinical Communication Start: 04-07-2025 ambulatory Prasanna Caceres ty:[facility] Start: 03-31-2025 ambulatory Prasanna Caceres ty:[facility] Start: 03-29-2025 ambulatory Prasanna Caceres ty:[facility] Start: 03-21-2025 End: 03-21-2025 Evaluation and management of inpatient Marlon Jackson DO Work Phone: [facility] OR Start: 03-20-2025 End: 03-24-2025 Evaluation and management of inpatient Jennifer Gann Shanitamary DO Work Phone: [facility] Surgical Progressive Care Unit PCU H6 Comment on above: Closed fracture of l eft hip, initial encounter (HCC) (Primary Dx); Osteoporosis, unspecified osteoporosis type, unspecified pathological fracture presence Start: 03-12-2025 End: 03-15-2025 Evaluation and management of inpatient Anastasia Rodriguez MD Work Phone: [facility] Cardiac Vascular Progressive Care Unit PCC 1C Comment on above: Atrial fibrillation with rapid ventricular response (HCC) (Primary Dx); NAYELY (acute kidney injury) (HCC); Chronic atrial fibrillation with RVR (HCC); 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, with necrosis of muscle (HCC) Start: 03-09-2025 End: 03-09-2025 Subsequent hospital visit by physician Jennifer Waldrop DPM Work Phone: [facility] [place] Comment on above: Ulcer of right foot with fat layer exposed (HCC) (Primary Dx); Diabetic polyneuropathy associated with type 2 diabetes mellitus (HCC); Pes planus of both feet; 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; Uncontrolled type 2 diabetes mellitus with hyperglycemia (HCC); Charcot's joint of foot, right Start: 03-09-2025 End: 03-09-2025 [facility] Start: 03-02-2025 End: 03-02-2025 Subsequent hospital visit by physician Jennifer Waldrop DPM Work Phone: [facility] [place] Comment on above: Ulcer of right foot with fat layer exposed (HCC) (Primary Dx); Diabetic polyneuropathy associated with type 2 diabetes mellitus (HCC); Pes planus of both feet; 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; Uncontrolled type 2 diabetes mellitus with hyperglycemia (HCC); Charcot's joint of foot, right Start: 03-02-2025 End: 03-02-2025 ambulatory [facility] Start: 02-23-2025 End: 02-23-2025 [facility] Start: 02-23-2025 End: 02-23-2025 Subsequent hospital visit by physician Jennifer Waldrop DPM Work Phone: [facility] [place] [place] Comment on above: Ulcer of right foot with fat layer exposed (HCC) (Primary Dx); Diabetic polyneuropathy associated with type 2 diabetes mellitus (HCC); Pes planus of both feet; 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; Uncontrolled type 2 diabetes mellitus with hyperglycemia (HCC); Charcot's joint of foot, right Start: 02-08-2025 ambulatory Prasanna Caceres ty:[facility] Start: 01-25-2025 End: 02-02-2025 Evaluation and management of inpatient J Dede Conley MD Work Phone: [facility] Cardiac Progressive Care Unit PCU 5W Comment on above: 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); Bacteremia; SIRS (systemic inflammatory response syndrome) (HCC); Severe sepsis (HCC); 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, with necrosis of muscle (HCC); Bilateral calf pain Start: 01-12-2025 End: 01-12-2025 Subsequent hospital visit by physician Jennifer Waldrop DPM Work Phone: [facility] [place] Comment on above: 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); Diabetic ulcer of right foot associated with diabetes mellitus due to underlying condition, with necrosis of muscle, unspecified part of foot (HCC); Pes planus of both feet; 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; Uncontrolled type 2 diabetes mellitus with hyperglycemia (HCC) Start: 01-12-2025 End: 01-12-2025 [facility] Start: 01-05-2025 End: 01-05-2025 [facility] Start: 01-05-2025 End: 01-05-2025 Subsequent hospital visit by physician Jennifer Waldrop DPM Work Phone: [facility] [place] Comment on above: 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); Diabetic ulcer of right foot associated with diabetes mellitus due to underlying condition, with necrosis of muscle, unspecified part of foot (HCC); Pes planus of both feet; 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; Uncontrolled type 2 diabetes mellitus with hyperglycemia (HCC) Start: 12-29-2024 End: 12-29-2024 [facility] Start: 12-29-2024 End: 12-29-2024 Subsequent hospital visit by physician Jennifer Waldrop DPM Work Phone: [facility] [place] Comment on above: 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); Diabetic ulcer of right foot associated with diabetes mellitus due to underlying condition, with necrosis of muscle, unspecified part of foot (HCC); Pes planus of both feet; 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; Uncontrolled type 2 diabetes mellitus with hyperglycemia (HCC) Start: 12-24-2024 End: 12-24-2024 Telephone encounter Priscila Ogden CNP Work Phone: [facility] Start: 12-24-2024 End: 12-24-2024 [facility] Start: 12-24-2024 End: 12-24-2024 Office outpatient visit 25 minutes Priscila Ogden CNP Work Phone: [facility] Comment on above: Type 2 diabetes christina itus with hyperglycemia, with long-term current use of insulin (HCC) (Primary Dx); Essential hypertension; Mixed hyperlipidemia Start: 12-16-2024 End: 12-16-2024 [facility] Clinical Communication Comment on above: Other Start: 12-11-2024 End: 12-11-2024 [facility] Start: 12-11-2024 End: 12-11-2024 Subsequent hospital visit by physician Nallely Alas DPM Work Phone: [facility] [place] Comment on above: Diabetic ulcer of ot her part of right foot associated with diabetes mellitus due to underlying condition, with necrosis of muscle (HCC) (Primary Dx); 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); Pes planus of both feet; Diabetic ulcer of right foot associated with diabetes mellitus due to underlying condition, with necrosis of muscle, unspecified part of foot (HCC); 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; Uncontrolled type 2 diabetes mellitus with hyperglycemia (HCC) Start: 12-02-2024 End: 12-05-2024 Evaluation and management of inpatient León Marie Work Phone: [facility] Cardiac Progressive Care Unit PCU 2E Comment on above: Confusion (Primary D x); Cystitis; Right arm weakness Start: 11-27-2024 End: 11-27-2024 [facility] Start: 11-27-2024 End: 11-27-2024 Subsequent hospital visit by physician Marielos Blair APRN - 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); Diabetic ulcer of other part of right foot associated with diabetes mellitus due to underlying condition, with necrosis of muscle (HCC) Start: 11-20-2024 End: 11-20-2024 Subsequent hospital visit by physician Nallely Alas DPM Work Phone: [facility] [place] Comment on above: Diabetic ulcer of ot her part of right foot associated with diabetes mellitus due to underlying condition, with necrosis of muscle (HCC) (Primary Dx); 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); 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; Pes planus of both feet; Diabetic ulcer of right foot associated with diabetes mellitus due to underlying condition, with necrosis of muscle, unspecified part of foot (HCC); Uncontrolled type 2 diabetes mellitus with hyperglycemia (HCC) Start: 11-20-2024 End: 11-20-2024 [facility] Start: 11-13-2024 End: 11-13-2024 ambulatory [facility] Start: 11-13-2024 End: 11-13-2024 Subsequent hospital visit by physician Nallely Alas DPM Work Phone: [facility] [place] Comment on above: Posterior tibial ten don dysfunction (PTTD) of both lower extremities (Primary Dx); 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); Diabetic ulcer of right foot associated with diabetes mellitus due to underlying condition, with necrosis of muscle, unspecified part of foot (HCC); Diabetic ulcer of other part of right foot associated with diabetes mellitus due to underlying condition, with necrosis of muscle (HCC); Pes planus of both feet; Uncontrolled type 2 diabetes mellitus with hyperglycemia (HCC) Start: 11-06-2024 End: 11-06-2024 Subsequent hospital visit by physician Nallely Alas DPM Work Phone: [facility] [place] Comment on above: Diabetic ulcer of ri ght foot associated with diabetes mellitus due to underlying condition, with necrosis of muscle, unspecified part of foot (HCC) (Primary Dx); 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); Pes planus of both feet; 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; Diabetic ulcer of other part of right foot associated with diabetes mellitus due to underlying condition, with necrosis of muscle (HCC) Start: 11-06-2024 End: 11-06-2024 [facility] Start: 10-29-2024 End: 10-29-2024 Telephone encounter Dorothy Medrano Work Phone: [facility] Clinical Communication Comment on above: Other Start: 10-16-2024 End: 10-16-2024 ambulatory [facility] Start: 10-16-2024 End: 10-16-2024 Subsequent hospital visit by physician Nallely Alas DPM Work Phone: [facility] [place] Comment on above: Diabetic ulcer of ot her part of right foot associated with diabetes mellitus due to underlying condition, with necrosis of muscle (HCC) (Primary Dx); Diabetic ulcer of right foot associated with diabetes mellitus due to underlying condition, with necrosis of muscle, unspecified part of foot (HCC); Uncontrolled type 2 diabetes mellitus with hyperglycemia (HCC); Pes planus of both feet; 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; 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) Start: 10-15-2024 End: 10-15-2024 Office outpatient visit 40 minutes Kraig Wright MD Work Phone: [facility] [place] Comment on above: Memory loss (Primary Dx) Start: 10-15-2024 End: 10-15-2024 [facility] Start: 10-09-2024 End: 10-09-2024 Subsequent hospital visit by physician Nallely Alas DPM Work Phone: [facility] [place] Comment on above: Diabetic ulcer of ot her part of right foot associated with diabetes mellitus due to underlying condition, with necrosis of muscle (HCC) (Primary Dx); Uncontrolled type 2 diabetes mellitus with hyperglycemia (HCC); 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); Pes planus of both feet; 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 Start: 10-09-2024 End: 10-09-2024 ambulatory NALLELY ALAS [facility] Start: 10-02-2024 End: 10-02-2024 Subsequent hospital visit by physician Marielos Blair 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 - [employer]ANT INSTRUMENT TECHNICIAN Work Phone: [facility] [place] Comment on above: Diabetic ulcer of ot her part of right foot associated with diabetes mellitus due to underlying condition, with necrosis of muscle (HCC) (Primary Dx) Start: 10-02-2024 End: 10-02-2024 ambulatory LAUREN CASTANON [facility] Start: 09-23-2024 End: 09-25-2024 Telephone encounter Radha Urbina RN [facility] Clinical Communication Comment on above: Appointment Request Start: 09-21-2024 End: 09-24-2024 Telephone encounter Priscila Laguerre 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 - NUCLEAR PLANT INSTRUMENT TECHNICIAN Work Phone: [facility] [place] Comment on above: Hospital Follow-up Start: 09-18-2024 End: 09-24-2024 Evaluation and management of inpatient Janet Niño MD Work Phone: [facility] Medical Surgical Unit MSU 4S Comment on above: Uncontrolled type 2 diabetes mellitus with hyperglycemia (HCC) (Primary Dx); Hyperkalemia; Urinary tract infection without hematuria, site unspecified; Diabetic ulcer of other part of right foot associated with diabetes mellitus due to underlying condition, with necrosis of muscle (HCC) Start: 09-17-2024 End: 09-17-2024 Emergency department patient visit Damian Loza DO Work Phone: [facility] Comment on above: Hyperglycemia (Prima ry Dx) Start: 05-22-2024 ambulatory LISY PACE [facility] Locations Start: 03-19-2024 ambulatory LISY PACE [facility] Start: 03-19-2024 End: 03-19-2024 Subsequent hospital visit by physician Nader Navarro MD Work Phone: [facility] Comment on above: Wound, open Start: 03-05-2024 ambulatory LISY PACE [facility] Start: 03-05-2024 End: 03-05-2024 Subsequent hospital visit by physician Nader Navarro MD Work Phone: [facility] Comment on above: Wound, open Start: 01-30-2024 ambulatory LISYDARION CONDON SANJEEV [facility] Start: 01-30-2024 End: 01-30-2024 Subsequent hospital visit by physician Nader Navarro MD Work Phone: [facility] Comment on above: Wound, open Start: 01-23-2024 [facility] ILSY ALEXXMORGAN PACE [facility] Start: 01-23-2024 End: 01-23-2024 Subsequent hospital visit by physician Nader Navarro MD Work Phone: [facility] Comment on above: Wound, open Start: 01-13-2024 End: 01-13-2024 ambulatory LISYALENA PACE Provider Locations Start: [facility] Start: 01-09-2024 End: 01-09-2024 Subsequent hospital visit by physician Nader Navarro MD Work Phone: [facility] Comment on above: Wound, open Start: 12-19-2023 [facility] Start: 12-19-2023 End: 12-19-2023 Subsequent hospital visit by physician Nader Navarro MD Work Phone: [facility] Comment on above: Wound, open Start: 12-16-2023 ambulatory LISY PACE [facility] Loc[facility] Start: 12-12-2023 [facility] Start: 12-12-2023 End: 12-12-2023 Subsequent hospital visit by physician Nader Navarro MD Work Phone: [facility] Comment on above: Wound, open Start: 12-02-2023 ambulatory LISY PACE [facility] Start: 11-25-2023 [facility] Start: 11-25-2023 End: 11-25-2023 Subsequent hospital visit by physician Nader Navarro MD Work Phone: [facility] Comment on above: Wound, open Start: 11-14-2023 ambulatory [facility] BONNIE RAI [facility] Start: 11-14-2023 End: 11-14-2023 Subsequent hospital visit by physician Nader Navarro MD Work Phone: [facility] Comment on above: Wound, open Start: 11-10-2023 End: 11-12-2023 Evaluation and management of inpatient Norberto Rubio MD Work Phone: [facility] Patient Care Unit 1 Comment on above: Cellulitis of right lower leg Start: 10-31-2023 End: 10-31-2023 Subsequent hospital visit by physician Nader Navarro MD Work Phone: [facility] Comment on above: Wound, open Start: 10-18-2023 [facility] Start: 10-18-2023 End: 10-18-2023 Subsequent hospital visit by physician Lisy Pace MD Work Phone: [facility] Start: 10-18-2023 [facility] Start: 10-17-2023 ambulatory [facility] B[address] [facility] Start: 10-17-2023 End: 10-17-2023 Subsequent hospital visit by physician Nader Navarro MD Work Phone: [facility] Comment on above: Wound, open Start: 10-11-2023 [facility] Start: 10-03-2023 [facility] BONNIE RA[address] [facility] Start: 10-03-2023 End: 10-03-2023 Subsequent hospital visit by physician Nader Navarro MD Work Phone: [facility] Comment on above: Wound, open Start: 09-19-2023 [facility] Start: 09-19-2023 End: 09-19-2023 Subsequent hospital visit by physician Nader Navarro MD Work Phone: [facility] Comment on above: Wound, open Start: 09-16-2023 ambulatory LISY PACE [facility] Start: [facility]-05-2023 [facility] Start: 09-05-2023 End: 09-05-2023 Subsequent hospital visit by physician Nader Navarro MD Work Phone: [facility] Comment on above: Wound, open Start: 08-22-2023 End: 08-22-2023 Subsequent hospital visit by physician Nader Navarro MD Work Phone: [facility] Comment on above: Wound, open Start: 08-22-2023 ambulatory [facility] B[facility] [facility] Start: 08-01-2023 [facility] [address] [address] [facility] Start: 08-01-2023 End: 08-01-2023 Subsequent hospital visit by physician Nader Navarro MD Work Phone: [facility] Comment on above: Wound, open Start: 07-25-2023 ambulatory LISY PACE [facility] Start: 07-25-2023 End: 07-25-2023 Subsequent hospital visit by physician Nader Navarro MD Work Phone: [facility] Comment on above: Wound, open Start: 07-11-2023 [facility] LISY PACE [facility] Start: 07-11-2023 End: 07-11-2023 Subsequent hospital visit by physician Nader Navarro MD Work Phone: [facility] Comment on above: Wound, open Start: 06-20-2023 ambulatory LISY PACE [facility] Start: 06-20-2023 End: 06-20-2023 Subsequent hospital visit by physician Nader Navraro MD Work Phone: [facility] Comment on above: Wound, open Start: 06-06-2023 ambulatory [facility] Start: 06-06-2023 End: 06-06-2023 Subsequent hospital visit by physician Nader Navarro MD Work Phone: [facility] Comment on above: Wound, open Start: 05-31-2023 End: 05-31-2023 ambulatory RADHA DE LEON Provider Locations Start: 05-23-2023 ambulatory [facility] [address] [facility] Start: 05-23-2023 End: 05-23-2023 Subsequent hospital visit by physician Nader Navarro MD Work Phone: [facility] Comment on above: Wound, open Start: 05-06-2023 ambulatory ESTIVEN MCFADDEN [facility] Start: 05-06-2023 End: 05-06-2023 Subsequent hospital visit by physician Estiven Mcfadden [facility] Work Phone: [facility] Comment on above: Wound, open Start: 05-06-2023 End: 05-06-2023 [facility] Start: 05-06-2023 End: 05-06-2023 Subsequent hospital visit by physician Nader Navarro MD Work Phone: [facility] Comment on above: Wound, open Start: 04-18-2023 End: 04-18-2023 ambulatory [facility] Start: 04-18-2023 End: 04-18-2023 Subsequent hospital visit by physician Nader Navarro MD Work Phone: [facility] Comment on above: Wound, open Start: 04-04-2023 ambulatory [facility] Start: 04-04-2023 End: 04-04-2023 Subsequent hospital visit by physician Nader Navarro MD Work Phone: [facility] Comment on above: Wound, open Start: 03-21-2023 End: 03-21-2023 Subsequent hospital visit by physician Nader Navarro MD Work Phone: [facility] Comment on above: Wound, open Start: 03-07-2023 End: 03-07-2023 Subsequent hospital visit by physician Nader Navarro MD Work Phone: [facility] Comment on above: Wound, open Start: 02-01-2022 End: 02-01-2022 Subsequent hospital visit by physician Estiven Mcfadden DPM Work Phone: [facility] Comment on above: Wound, open Start: 01-18-2022 End: 01-18-2022 Subsequent hospital visit by physician Lisy Pace MD Work Phone: [facility] Start: 01-11-2022 End: 01-11-2022 Subsequent hospital visit by physician Estiven Mcfadden DPM Work Phone: [facility] Comment on above: Wound, open Start: 12-28-2021 End: 12-28-2021 Subsequent hospital visit by physician Estiven Mcfadden DPM Work Phone: [facility] Comment on above: Wound, open Start: 12-14-2021 End: 12-14-2021 Subsequent hospital visit by physician Estiven Mcfadden DPM Work Phone: [facility] Comment on above: Wound, open Start: 12-12-2021 End: 12-12-2021 Subsequent hospital visit by physician Estiven Mcfadden DPM Work Phone: [facility] Comment on above: Wound, open Start: 11-23-2021 End: 11-23-2021 Subsequent hospital visit by physician Estiven Mcfadden DPM Work Phone: [facility] Comment on above: Wound, open Start: 11-09-2021 End: 11-09-2021 Subsequent hospital visit by physician Estiven Mcfadden DPM Work Phone: [facility] Comment on above: Wound, open Start: 11-09-2021 End: 11-09-2021 Subsequent hospital visit by physician Ashlie Cardenas MD Work Phone: [facility] Comment on above: Wound, open Start: 10-26-2021 End: 10-26-2021 Subsequent hospital visit by physician Nader Navarro MD Work Phone: [facility] Comment on above: Wound, open Start: 10-05-2021 End: 10-05-2021 Subsequent hospital visit by physician Nader Navarro MD Work Phone: [facility] [facility] Comment on above: Wound, open Start: 09-21-2021 End: 09-21-2021 Subsequent hospital visit by physician Nader Navarro MD Work Phone: [facility] Comment on above: Wound, open Start: 08-31-2021 End: 08-31-2021 Subsequent hospital visit by physician Nader Navarro MD Work Phone: [facility] Comment on above: Wound, open Start: 08-17-2021 End: 08-17-2021 Subsequent hospital visit by physician Nader Navarro MD Work Phone: [facility] Comment on above: Wound, open Start: 08-03-2021 End: 08-03-2021 Subsequent hospital visit by physician Nader Navarro MD Work Phone: [facility] Comment on above: Wound, open Start: 07-20-2021 End: 07-20-2021 Subsequent hospital visit by physician Ashlie Cardenas MD Work Phone: [facility] Comment on above: Wound, open Start: 07-13-2021 End: 07-13-2021 Subsequent hospital visit by physician Nader Navarro MD Work Phone: [facility] Comment on above: Wound, open Start: 06-29-2021 End: 06-29-2021 Subsequent hospital visit by physician Nader Navarro MD Work Phone: [facility] Comment on above: Wound, open Start: 06-22-2021 End: 06-22-2021 Subsequent hospital visit by physician Nader Navarro MD Work Phone: [facility] Comment on above: Wound, open Start: 03-31-2021 End: 03-31-2021 Subsequent hospital visit by physician Nader Navarro MD Work Phone: [facility] Comment on above: Wound, open Start: 03-24-2021 End: 03-24-2021 Subsequent hospital visit by physician Nader Navarro MD Work Phone: [facility] Comment on above: Wound, open Start: 03-17-2021 End: 03-17-2021 Subsequent hospital visit by physician Nader Navarro MD Work Phone: [facility] Comment on above: Wound, open Start: 01-26-2021 Patient encounter procedure Nic Temple MD Work Phone: [facility] Start: 01-26-2021 Progress Note Nic cortez MD Work Phone: [facility] Start: 01-18-2021 Patient encounter procedure Nic Temple MD Work Phone: [facility] Start: 01-18-2021 Progress Note Nic cortez MD Work Phone: [facility] Start: 10-28-2020 End: 10-28-2020 Subsequent hospital visit by physician Nader Navarro Work Phone: [facility] Comment on above: Wound, open Start: 10-15-2020 End: 10-21-2020 Evaluation and management of inpatient Antwan Rebolledo Work Phone: [facility] Patient Care Unit 4 Comment on above: Cellulitis Start: 10-14-2020 End: 10-14-2020 Subsequent hospital visit by physician Nader Navarro Work Phone: [facility] Comment on above: Wound, open Start: 10-04-2020 End: 10-04-2020 Subsequent hospital visit by physician Brian Wilson Work Phone: [facility] Nuclear Medicine Start: 04-07-2020 End: 04-07-2020 Subsequent hospital visit by physician Nader Navarro Work Phone: [facility] Comment on above: Open wound Start: 03-31-2020 End: 03-31-2020 Subsequent hospital visit by physician Nader Navarro Work Phone: [facility] Comment on above: Open wound Procedures Date Procedure Procedure Detail Performing Clinician Start: 03-24-2025 Glucose quantitative blood xcpt reagent strip Brice Mota MD Work Phone: Start: 03-24-2025 Glucose quantitative blood xcpt reagent strip Brice Mota MD Work Phone: Start: 03-24-2025 Basic metabolic pane l calcium total Brice Mota MD Work Phone: Start: 03-23-2025 Glucose quantitative blood xcpt reagent strip Brice Mota MD Work Phone: Start: 03-23-2025 Glucose quantitative blood xcpt reagent strip Brice Mota MD Work Phone: Start: 03-23-2025 Glucose quantitative blood xcpt reagent strip Brice Mota MD Work Phone: Start: 03-23-2025 Glucose quantitative blood xcpt reagent strip Brice Mota MD Work Phone: Start: 03-23-2025 Basic metabolic pane l calcium total Raffi Paulino MD Work Phone: Start: 03-23-2025 Drug screen quantita tive vancomycin Raffi Paulino MD Work Phone: Start: 03-22-2025 Glucose quantitative blood xcpt reagent strip Raffi Paulino MD Work Phone: Start: 03-22-2025 Glucose quantitative blood xcpt reagent strip Raffi Paulino MD Work Phone: Start: 03-22-2025 Glucose quantitative blood xcpt reagent strip Raffi Paulino MD Work Phone: Start: 03-22-2025 Glucose quantitative blood xcpt reagent strip Raffi Paulino MD Work Phone: Start: 03-22-2025 End: 03-22-2025 Cortisol total Raffi Paulino MD Work Phone: Start: 03-22-2025 Assay of lactate Raffi gaffney MD Work Phone: Start: 03-22-2025 Compatibility each u nit electronic Sergio Lutz JUNIOR PROGRAMMER Work Phone: Start: 03-22-2025 End: 03-22-2025 TRANSFUSE RED BLOOD CELLS Sergio Lutz JUNIOR PROGRAMMER Work Phone: Start: 03-22-2025 Comprehensive metabo lic panel Raffi Paulino MD Work Phone: Start: 03-21-2025 End: 03-21-2025 Bacteria identified in Blood by Culture Raffi Paulino MD Work Phone: Start: 03-21-2025 Assay of lactate Raffi gaffney MD Work Phone: Start: 03-21-2025 Radiologic examinati on foot 2 views Raffi Paulino MD Work Phone: Start: 03-21-2025 Glucose quantitative blood xcpt reagent strip Raffi Paulino MD Work Phone: Start: 03-21-2025 Culture bacterial an y source anaerobic iso&id Raffi Paulino MD Work Phone: Start: 03-21-2025 End: 03-21-2025 Bilirubin direct Raffi Paulino MD Work Phone: Start: 03-21-2025 Blood gases any comb ination ph pco2 po2 co2 hco3 Raffi Paulino MD Work Phone: Start: 03-21-2025 Ecg routine ecg w/le ast 12 lds trcg only w/o i&r Raffi Paulino MD Work Phone: Start: 03-21-2025 Compatibility each u nit electronic Willi Sullivan MD Work Phone: Start: 03-21-2025 End: 03-21-2025 TRANSFUSE RED BLOOD CELLS Willi lamb MD Work Phone: Start: 03-21-2025 End: 03-21-2025 Blood count hematocrit Marlon Jackson DO Work Phone: Start: 03-21-2025 Radiologic examinati on femur minimum 2 views Golden Collado MD Work Phone: Start: 03-21-2025 FL GUIDANCE OR USE O NLY - NON-RESULTABLE Willi Sullivan MD Work Phone: Start: 03-21-2025 W[place] AN EMERGENT ENDOT ROSIE AIRWAY Yordan Gannon APRN - [employer] Work Phone: Start: 03-21-2025 End: 03-21-2025 Tx inter/pr/subtrchntric fem fx imed impltscrew Willi Sullivan MD Work Phone: Start: 03-21-2025 End: 03-21-2025 Comprehensive metabolic panel Miguel Hui DO Work Phone: Start: 03-21-2025 Manual Differential panel - Blood Janet Houston DO Work Phone: Start: 03-20-2025 Assay of troponin quantitative Janet Garciaire DO Work Phone: Start: 03-20-2025 Antibody screen DOROTHY MEDRANO Comment on above: Performed By: #### L [id number] ####Rn Building: [facility] ([id number])[facility] ([facility])[address] [place] [address] Start: 03-20-2025 Blood gases any comb ination ph pco2 po2 co2 hco3 Miguel Hui DO Work Phone: Start: 03-20-2025 Blood typing serologic abo Zunilda Gale MD Work Phone: Start: 03-20-2025 End: 03-20-2025 Basic metabolic panel calcium total Janet Rosemarie DO Work Phone: Start: 03-20-2025 Glucose quantitative blood xcpt reagent strip Janet Houston DO Work Phone: Start: 03-20-2025 Radiologic examinati on femur minimum 2 views Zunilda Gale MD Work Phone: Start: 03-20-2025 Ecg routine ecg w/le ast 12 lds trcg only w/o i&r Jennifer Perry DO Work Phone: Start: 03-20-2025 US scan of abdominal aorta Jennfier Perry DO Work Phone: Start: 03-20-2025 Urnls dip stick/tabl et reagent auto microscopy Jennifer Perry DO Work Phone: Start: 03-20-2025 Radex hip unilateral with pelvis 2-3 views Jennifer Perry DO Work Phone: Start: 03-20-2025 Radiologic exam ches t single view Jennifer Perry DO Work Phone: Start: 03-20-2025 Basic metabolic pane l calcium total Jennifer Perry DO Work Phone: Start: 03-20-2025 Ecg routine ecg w/le ast 12 lds trcg only w/o i&r Jennifer Perry DO Work Phone: Start: 03-20-2025 PB ED PLACEHOLDER Zeferino Perry DO Work Phone: Start: 03-15-2025 Glucose quantitative blood xcpt reagent strip Deny Barton MD Work Phone: Start: 03-15-2025 Echo tthrc r-t 2d w/wom-mode compl spec&colr d Patel Can MD Work Phone: Start: 03-15-2025 Glucose quantitative blood xcpt reagent strip Deny Barton MD Work Phone: Start: 03-15-2025 Basic metabolic pane l calcium total Deny Barton MD Work Phone: Start: 03-14-2025 Glucose quantitative blood xcpt reagent strip Deny Barton MD Work Phone: Start: 03-14-2025 Glucose quantitative blood xcpt reagent strip Deny Barton MD Work Phone: Start: 03-14-2025 Urnls dip stick/tabl et rgnt auto w/o microscopy Deny Barton MD Work Phone: Start: 03-14-2025 Glucose quantitative blood xcpt reagent strip Deny Barton MD Work Phone: Start: 03-14-2025 Glucose quantitative blood xcpt reagent strip Deny Barton MD Work Phone: Start: 03-14-2025 Thyrotropin [Units/v olume] in Serum or Plasma Anastasia Rodriguez MD Work Phone: Start: 03-14-2025 Comprehensive metabo lic panel Deny Barton MD Work Phone: Start: 03-13-2025 Glucose quantitative blood xcpt reagent strip Deny Barton MD Work Phone: Start: 03-13-2025 Glucose quantitative blood xcpt reagent strip Patel Can MD Work Phone: Start: 03-13-2025 Glucose quantitative blood xcpt reagent strip Anastasia Rodriguez MD Work Phone: Start: 03-13-2025 End: 03-13-2025 Comprehensive metabolic panel Patel Can MD Work Phone: Start: 03-13-2025 Glucose quantitative blood xcpt reagent strip Anastasia Rodriguez MD Work Phone: Start: 03-12-2025 Assay of troponin quantitative Helen Beatty PA-C Work Phone: Start: 03-12-2025 End: 03-12-2025 Basic metabolic panel calcium total Helen Beatty PA-C Work Phone: Start: 03-12-2025 Radiologic exam ches t single view Helen Beatty PA-C Work Phone: Start: 03-12-2025 Ecg routine ecg w/le ast 12 lds trcg only w/o i&r Helen Beatty PA-C Work Phone: Start: 03-09-2025 Debridement subcutan eous tissue 20 sq cm/< Jennifer Waldrop DPM Work Phone: Start: 03-02-2025 Debridement subcutan eous tissue 20 sq cm/< Jennifer Waldrop DPM Work Phone: Start: 02-23-2025 Debridement subcutan eous tissue 20 sq cm/< Jennifer Waldrop DPM Work Phone: Start: 02-23-2025 Adult depression scr eening assessment Jennifer Jourdan DPM Work Phone: Start: 02-02-2025 Glucose quantitative blood xcpt reagent strip Roxy Aguilar MD Work Phone: Start: 02-02-2025 Glucose quantitative blood xcpt reagent strip oRxy Aguilar MD Work Phone: Start: 02-02-2025 Basic metabolic pane l calcium total Katey Beard MD Work Phone: Start: 02-01-2025 Glucose quantitative blood xcpt reagent strip Katey Beard MD Work Phone: Start: 02-01-2025 Glucose quantitative blood xcpt reagent strip Katey Beard MD Work Phone: Start: 02-01-2025 Glucose quantitative blood xcpt reagent strip Katey Beard MD Work Phone: Start: 02-01-2025 Glucose quantitative blood xcpt reagent strip Katey Beard MD Work Phone: Start: 01-31-2025 Glucose quantitative blood xcpt reagent strip Katey Beard MD Work Phone: Start: 01-31-2025 Glucose quantitative blood xcpt reagent strip Katey Beard MD Work Phone: Start: 01-31-2025 Blood count complete auto&auto difrntl wbc Katey Beard MD Work Phone: Start: 01-31-2025 End: 01-31-2025 Basic metabolic panel calcium total Katey Beard MD Work Phone: Start: 01-31-2025 Glucose quantitative blood xcpt reagent strip Katey Beard MD Work Phone: Start: 01-30-2025 Glucose quantitative blood xcpt reagent strip Katey Beard MD Work Phone: Start: 01-30-2025 Glucose quantitative blood xcpt reagent strip Katey Beard MD Work Phone: Start: 01-30-2025 Glucose quantitative blood xcpt reagent strip Katey Beard MD Work Phone: Start: 01-30-2025 Glucose quantitative blood xcpt reagent strip Katey Beard MD Work Phone: Start: 01-29-2025 Glucose quantitative blood xcpt reagent strip Rox Covington MD Work Phone: Start: 01-29-2025 Glucose quantitative blood xcpt reagent strip Rox Covington MD Work Phone: Start: 01-29-2025 Glucose quantitative blood xcpt reagent strip Rox Covington MD Work Phone: Start: 01-29-2025 Glucose quantitative blood xcpt reagent strip Rox Covington MD Work Phone: Start: 01-29-2025 Basic metabolic pane l calcium total Rox Covington MD Work Phone: Start: 01-29-2025 Drug screen quantita tive vancomycin Ramiro Crawford MD Work Phone: Start: 01-28-2025 Glucose quantitative blood xcpt reagent strip Rox Covington MD Work Phone: Start: 01-28-2025 Glucose quantitative blood xcpt reagent strip Rox Covington MD Work Phone: Start: 01-28-2025 Glucose quantitative blood xcpt reagent strip Rox Covington MD Work Phone: Start: 01-28-2025 Glucose quantitative blood xcpt reagent strip Rox Covington MD Work Phone: Start: 01-28-2025 Basic metabolic pane l calcium total Suha Ruiz 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 - NUCLEAR PLANT INSTRUMENT TECHNICIAN Work Phone: Start: 01-27-2025 Glucose quantitative blood xcpt reagent strip Katey Beard MD Work Phone: Start: 01-27-2025 Mri any jt lower ext rem w/o & w/contrast matrl Magda Gomez PA-C Work Phone: Start: 01-27-2025 Glucose quantitative blood xcpt reagent strip Katey Beard MD Work Phone: Start: 01-27-2025 Radiologic examinati on femur minimum 2 views Magda Gomez PA-C Work Phone: Start: 01-27-2025 Glucose quantitative blood xcpt reagent strip Katey Beard MD Work Phone: Start: 01-27-2025 End: 01-27-2025 Glucose quantitative blood xcpt reagent strip Katey Beard MD Work Phone: Start: 01-27-2025 Basic metabolic pane l calcium total Tiarra C Suraj 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 - NUCLEAR PLANT INSTRUMENT TECHNICIAN Work Phone: Start: 01-27-2025 Drug screen quantita tive vancomycin Ramiro Crawford MD Work Phone: Start: 01-26-2025 AEROBIC AND ANAEROBI C CULTURE WITH STAIN Prachi Victoria MD Work Phone: Start: 01-26-2025 Culture bacterial an y source anaerobic iso&id Prachi Victoria MD Work Phone: Start: 01-26-2025 Antibody screen DOROTHY MEDRANO Comment on above: Performed By: #### L [id number] ####Rn Building: [facility] ([id number])[facility] ([facility])[address] [place] [address] Start: 01-26-2025 ABO and Rh group [Ty pe] in Blood by Confirmatory method Prachi Victoria MD Work Phone: Start: 01-26-2025 Blood typing serologic abo Prachi Victoria MD Work Phone: Start: 01-26-2025 Prothrombin time Prachi Victoria MD Work Phone: Start: 01-26-2025 Glucose quantitative blood xcpt reagent strip Ramiro Crawford MD Work Phone: Start: 01-26-2025 Glucose quantitative blood xcpt reagent strip Ramiro Crawford MD Work Phone: Start: 01-26-2025 Mri lower extrem oth /thn jt w/o & w/contr matr Prachi Victoria MD Work Phone: Start: 01-26-2025 Non-invasive physiol ogic study extremity 3 levls Jennifer Kenny MD Work Phone: Start: 01-26-2025 XR Orbit Views for f oreign body Prachi Victoria MD Work Phone: Start: 01-26-2025 Radex foot complete minimum 3 views Ramiro Crawford MD Work Phone: Start: 01-26-2025 Sedimentation rate r bc automated Tiarra Ruelas 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 - NUCLEAR PLANT INSTRUMENT TECHNICIAN Work Phone: Start: 01-26-2025 Culture bacterial quanttative colony count urine Tiarra Ruelas 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 - NUCLEAR PLANT INSTRUMENT TECHNICIAN Work Phone: Start: 01-26-2025 Dup-scan xtr veins c omplete bilateral study Tiarra Ruelas 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 - NUCLEAR PLANT INSTRUMENT TECHNICIAN Work Phone: Start: 01-26-2025 End: 01-26-2025 Comprehensive metabolic panel Tiarra Ruelas 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 - NUCLEAR PLANT INSTRUMENT TECHNICIAN Work Phone: Start: 01-26-2025 AEROBIC AND ANAEROBI C CULTURE WITH STAIN Tiarra Ruelas 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 - NUCLEAR PLANT INSTRUMENT TECHNICIAN Work Phone: Start: 01-26-2025 Culture bacterial an y source anaerobic iso&id Tiarra Ruelas 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 - NUCLEAR PLANT INSTRUMENT TECHNICIAN Work Phone: Start: 01-26-2025 Assay of troponin quantitative Sanjuanita Conley MD Work Phone: Start: 01-26-2025 C-reactive protein Rc Franks 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 - NUCLEAR PLANT INSTRUMENT TECHNICIAN Work Phone: Start: 01-26-2025 SARS-COV-2, FLU A/B, AND RSV COMBO Sanjuanita Conley MD Work Phone: Start: 01-26-2025 End: 01-26-2025 Assay of troponin quantitative Sanjuanita Conley MD Work Phone: Start: 01-26-2025 End: 01-26-2025 Bacteria identified in Blood by Culture Sanujanita Conley MD Work Phone: Start: 01-26-2025 Radiologic exam ches t single view Sanjuanita Conley MD Work Phone: Start: 01-26-2025 Ct abdomen & pelvis w/contrast material Sanjuanita Conley MD Work Phone: Start: 01-26-2025 Urnls dip stick/tabl et reagent auto microscopy Sanjuanita Conley MD Work Phone: Start: 01-25-2025 End: 01-25-2025 Basic metabolic panel calcium total J Dede Conley MD Work Phone: Start: 01-25-2025 Manual differential performed [Presence] in Blood Sanjuanita Conley MD Work Phone: Start: 01-25-2025 Ecg routine ecg w/le ast 12 lds trcg only w/o i&r Sanjuanita Conley MD Work Phone: Start: 01-25-2025 Thyrotropin [Units/v olume] in Serum or Plasma Jennifer Waldrop DPM Work Phone: Start: 01-12-2025 Debridement subcutan eous tissue 20 sq cm/< Jennifer Waldrop DPM Work Phone: Start: 01-05-2025 Debridement subcutan eous tissue 20 sq cm/< Jennifer Waldrop DPM Work Phone: Start: 12-29-2024 Debridement subcutan eous tissue 20 sq cm/< Jennifer Waldrop DPM Work Phone: Start: 12-24-2024 Follow-up visit DOROTHY MEDRANO Start: 12-11-2024 Debridement subcutan eous tissue 20 sq cm/< Nallely Alas DPM Work Phone: Start: 12-05-2024 End: 12-05-2024 Glucose quantitative blood xcpt reagent strip Shane Rodriguez MD Work Phone: Start: 12-05-2024 Comprehensive metabo lic panel Shane Rodriguez MD Work Phone: Start: 12-04-2024 Glucose quantitative blood xcpt reagent strip Shane Rodriguez MD Work Phone: Start: 12-04-2024 Glucose quantitative blood xcpt reagent strip Shane Rodriguez MD Work Phone: Start: 12-04-2024 POCT GLUCOSE METER UNSOLICITED RESULTS Shane Rodriguez MD Work Phone: Start: 12-04-2024 Glucose quantitative blood xcpt reagent strip Shane Rodriguez MD Work Phone: Start: 12-04-2024 Comprehensive metabo lic panel Shane Rodriguez MD Work Phone: Start: 12-03-2024 Glucose quantitative blood xcpt reagent strip Shane Rodriguez MD Work Phone: Start: 12-03-2024 Glucose quantitative blood xcpt reagent strip Shane Rodriguez MD Work Phone: Start: 12-03-2024 Us retroperitoneal r eal time w/image complete Shane Rodriguez MD Work Phone: Start: 12-03-2024 Glucose quantitative blood xcpt reagent strip Shane Rodriguez MD Work Phone: Start: 12-03-2024 Glucose quantitative blood xcpt reagent strip Karolina Cooper MD Work Phone: Start: 12-03-2024 Ecg routine ecg w/le ast 12 lds trcg only w/o i&r Karolina Cooper MD Work Phone: Start: 12-03-2024 Glucose quantitative blood xcpt reagent strip Karolina Cooper MD Work Phone: Start: 12-02-2024 Ct head/brain w/o co ntrast material León G Nesheim DO Work Phone: Start: 12-02-2024 Culture bacterial quanttative colony count urine León G Nesheim DO Work Phone: Start: 12-02-2024 Urinalysis complete panel - Urine León G Nesheim DO Work Phone: Start: 12-02-2024 C-reactive protein Toby Cooper MD Work Phone: Start: 12-02-2024 Comprehensive metabo lic panel León G Nesheim DO Work Phone: Start: 11-27-2024 Debridement subcutan eous tissue 20 sq cm/< Marielos Blair 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 - NUCLEAR PLANT INSTRUMENT TECHNICIAN Work Phone: Start: 10-16-2024 Debridement subcutan eous tissue 20 sq cm/< Nallely Alas DPM Work Phone: Start: 10-15-2024 Follow-up visit DOROTHY MARCELA Start: 10-15-2024 Adult depression scr eening assessment Kraig Wright MD Work Phone: Start: 10-02-2024 Debridement subcutan eous tissue 20 sq cm/< Marielos Blair 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 - NUCLEAR PLANT INSTRUMENT TECHNICIAN Work Phone: Start: 09-24-2024 Glucose quantitative blood xcpt reagent strip Herman Vogt DO Work Phone: Start: 09-24-2024 Glucose quantitative blood xcpt reagent strip Herman Masongt DO Work Phone: Start: 09-24-2024 Basic metabolic pane l calcium total Herman Masongt DO Work Phone: Start: 09-23-2024 Glucose quantitative blood xcpt reagent strip Herman Vogt DO Work Phone: Start: 09-23-2024 Glucose quantitative blood xcpt reagent strip Herman Vogt DO Work Phone: Start: 09-23-2024 Glucose quantitative blood xcpt reagent strip Herman Masongt DO Work Phone: Start: 09-23-2024 End: 09-23-2024 Basic metabolic panel calcium total Herman Pepper DO Work Phone: Start: 09-22-2024 Glucose quantitative blood xcpt reagent strip Herman Masongt DO Work Phone: Start: 09-22-2024 Glucose quantitative blood xcpt reagent strip Herman Masongt DO Work Phone: Start: 09-22-2024 Glucose quantitative blood xcpt reagent strip Herman Masongt DO Work Phone: Start: 09-22-2024 Glucose quantitative blood xcpt reagent strip Herman Masongt DO Work Phone: Start: 09-22-2024 End: 09-22-2024 Basic metabolic panel calcium total Fish Montes MD Work Phone: Start: 09-21-2024 Glucose quantitative blood xcpt reagent strip Fish Montes MD Work Phone: Start: 09-21-2024 Glucose quantitative blood xcpt reagent strip Fish Montes MD Work Phone: Start: 09-21-2024 Glucose quantitative blood xcpt reagent strip Fish Montes MD Work Phone: Start: 09-21-2024 Glucose quantitative blood xcpt reagent strip Fish Montes MD Work Phone: Start: 09-21-2024 Thyrotropin [Units/v olume] in Serum or Plasma Janet Niño MD Work Phone: Start: 09-21-2024 Basic metabolic pane l calcium total Fish Montes MD Work Phone: Start: 09-20-2024 Glucose quantitative blood xcpt reagent strip Fish Montes MD Work Phone: Start: 09-20-2024 Glucose quantitative blood xcpt reagent strip Fish Montes MD Work Phone: Start: 09-20-2024 Glucose quantitative blood xcpt reagent strip Fish Montes MD Work Phone: Start: 09-20-2024 Glucose quantitative blood xcpt reagent strip Fish Montes MD Work Phone: Start: 09-20-2024 Basic metabolic pane l calcium total Fish Montes MD Work Phone: Start: 09-19-2024 Glucose quantitative blood xcpt reagent strip Fish Montes MD Work Phone: Start: 09-19-2024 Glucose quantitative blood xcpt reagent strip Fish Montes MD Work Phone: Start: 09-19-2024 Glucose quantitative blood xcpt reagent strip Fish Montes MD Work Phone: Start: 09-19-2024 End: 09-19-2024 Basic metabolic panel calcium total Fish Montes MD Work Phone: Start: 09-19-2024 Glucose quantitative blood xcpt reagent strip Fish Montes MD Work Phone: Start: 09-18-2024 Potassium serum plasma/whole blood Fish Montes MD Work Phone: Start: 09-18-2024 Glucose quantitative blood xcpt reagent strip Janet Niño MD Work Phone: Start: 09-18-2024 Glucose quantitative blood xcpt reagent strip Janet Niño MD Work Phone: Start: 09-18-2024 Glucose quantitative blood xcpt reagent strip Janet Niño MD Work Phone: Start: 09-18-2024 POCT GLUCOSE METER UNSOLICITED RESULTS Janet Niño MD Work Phone: Start: 09-18-2024 Urinalysis complete panel - Urine Janet Niño MD Work Phone: Start: 09-18-2024 Urnls dip stick/tabl et reagent auto microscopy Janet Niño MD Work Phone: Start: 09-18-2024 Blood gases any comb ination ph pco2 po2 co2 hco3 Janet Niño MD Work Phone: Start: 09-18-2024 Comprehensive metabo lic panel Janet Niño MD Work Phone: Start: 09-18-2024 POCT GLUCOSE METER UNSOLICITED RESULTS Janet Niño MD Work Phone: Start: 09-17-2024 Basic metabolic pane l calcium total Mejgon Z Denia DO Work Phone: Start: 09-17-2024 Glucose quantitative blood xcpt reagent strip Meshonna Watkinsya DO Work Phone: Start: 09-17-2024 POCT GLUCOSE METER UNSOLICITED RESULTS Mejgon Z Denia DO Work Phone: Start: 09-17-2024 Basic metabolic pane l calcium total Mejgon Z Denia DO Work Phone: Start: 09-17-2024 POCT GLUCOSE METER UNSOLICITED RESULTS Mesanjuanitagon Z Denia DO Work Phone: Start: 11-12-2023 Glucose [Mass/volume ] in Serum or Plasma Norberto Rubio MD Work Phone: Start: 11-12-2023 Glucose [Mass/volume ] in Serum or Plasma Norberto Rubio MD Work Phone: Start: 11-12-2023 End: 11-12-2023 Blood count complete automated Jalil Vance Blanton MD Work Phone: Start: 11-12-2023 Glucose [Mass/volume ] in Serum or Plasma Norberto Rubio MD Work Phone: Start: 11-12-2023 Glucose [Mass/volume ] in Serum or Plasma Norberto Rubio MD Work Phone: Start: 11-11-2023 Glucose [Mass/volume ] in Serum or Plasma Norberto Rubio MD Work Phone: Start: 11-11-2023 Glucose [Mass/volume ] in Serum or Plasma Norberto Rubio MD Work Phone: Start: 11-11-2023 Glucose [Mass/volume ] in Serum or Plasma Norberto Rubio MD Work Phone: Start: 11-11-2023 Glucose [Mass/volume ] in Serum or Plasma Norberto Rubio MD Work Phone: Start: 11-11-2023 CBC W Auto Different ial panel - Blood Bautista White MD Work Phone: Start: 11-11-2023 COMPLETE BLOOD COUNT WITH DIFFERENTIAL Bautista White MD Work Phone: Start: 11-11-2023 Comprehensive metabo lic panel Bautista White MD Work Phone: Start: 11-11-2023 Phosphate [Mass/volu me] in Serum or Plasma Bautista White MD Work Phone: Start: 11-11-2023 Glucose [Mass/volume ] in Serum or Plasma Norberto Rubio MD Work Phone: Start: 11-10-2023 Glucose [Mass/volume ] in Serum or Plasma Norberto Rubio MD Work Phone: Start: 11-10-2023 ACTIVATED PARTIAL THROMBOPLASTIN TIME Norberto Rubio MD Work Phone: Start: 11-10-2023 Basic metabolic 2000 panel - Serum or Plasma Norberto Rubio MD Work Phone: Start: 11-10-2023 Bilirubin direct Capri Rubio MD Work Phone: Start: 11-10-2023 CBC W Auto Different ial panel - Blood Norberto Rubio MD Work Phone: Start: 11-10-2023 COMPLETE BLOOD COUNT WITH DIFFERENTIAL Norberto Rubio MD Work Phone: Start: 11-10-2023 End: 11-10-2023 Microscopic examination of blood, culture Norberto Rubio MD Work Phone: Start: 11-10-2023 Prothrombin time Capri Rubio MD Work Phone: Start: 11-10-2023 SEPSIS LACTATE W/ REFLEX Norberto Rubio MD Work Phone: Start: 11-10-2023 Radex foot complete minimum 3 views Norberto Rubio MD Work Phone: Start: 10-18-2023 Radex shoulder compl ete minimum 2 views Lisy Pace MD Work Phone: Start: 09-19-2023 Radiologic examinati on knee 1/2 views Lisy Pace MD Work Phone: Start: 05-31-2023 Follow-up visit Follow-up RADHA DE LEON Start: 05-06-2023 Radex foot complete minimum 3 views Estiven Mcfadden DPM Work Phone: Start: 01-18-2022 Screening mammograph y bi 2-view breast inc cad Lisy Pace MD Work Phone: Start: 11-09-2021 Radex foot complete minimum 3 views Estiven Mcfadden DPM Work Phone: Start: 06-22-2021 Specimen collection Ayse Navarro MD Work Phone: Start: 06-22-2021 BKR CULTURE, WOUND Mick Mcneal PA-C Work Phone: Start: 06-22-2021 CULTURE, WOUND Tiffany D Fredis PA-Isaiah Work Phone: Start: 06-22-2021 CX WOUND COLLECTION Tita an D Fredis LAUREN-Isaiah Work Phone: Start: 10-21-2020 ACCUCHECK GLUCOSE Calvi n P Amaury Work Phone: Start: 10-21-2020 ACCUCHECK GLUCOSE Calvi n P Amaury Work Phone: Start: 10-21-2020 ACCUCHECK GLUCOSE Calvi n P Amaury Work Phone: Start: 10-21-2020 Basic metabolic 2000 panel So Nielsen Work Phone: Start: 10-20-2020 ACCUCHECK GLUCOSE Calvi n P Amaury Work Phone: Start: 10-20-2020 ACCUCHECK GLUCOSE Calvi n P Amaury Work Phone: Start: 10-20-2020 ACCUCHECK GLUCOSE Calvi n P Amaury Work Phone: Start: 10-20-2020 ACCUCHECK GLUCOSE Calvi n P Amaury Work Phone: Start: 10-20-2020 Basic metabolic 2000 panel Juan M Quick Work Phone: Start: 10-20-2020 Basic metabolic 2000 panel Juan M Quick Work Phone: Start: 10-19-2020 ACCUCHECK GLUCOSE Calvi n P Amaury Work Phone: Start: 10-19-2020 ACCUCHECK GLUCOSE Calvi n P Amaury Work Phone: Start: 10-19-2020 Basic metabolic 2000 panel Juan M Quick Work Phone: Start: 10-19-2020 ACCUCHECK GLUCOSE Calvi n P Amaury Work Phone: Start: 10-19-2020 Basic metabolic 2000 panel Juan M Quick Work Phone: Start: 10-19-2020 ACCUCHECK GLUCOSE Calvi n P Amaury Work Phone: Start: 10-18-2020 ACCUCHECK GLUCOSE Calvi n P Amaury Work Phone: Start: 10-18-2020 ACCUCHECK GLUCOSE Calvi n P Amaury Work Phone: Start: 10-18-2020 Radiologic exam ches t single view So Nielsen Work Phone: Start: 10-18-2020 URINALYSIS REFLEX TO CULTURE So Nielsen Work Phone: Start: 10-18-2020 End: 10-19-2020 Basic metabolic 2000 panel Juan M goode Work Phone: Start: 10-18-2020 CULTURE, MISCELLANEO US WITH GRAM STAIN Tiffany Mcneal Work Phone: Start: 10-18-2020 CLOSTRIDIUM DIFFICIL E SCREEN So Nielsen Work Phone: Start: 10-18-2020 ACCUCHECK GLUCOSE Calvi n P Amaury Work Phone: Start: 10-18-2020 ACCUCHECK GLUCOSE Calvi n P Amaury Work Phone: Start: 10-17-2020 ACCUCHECK GLUCOSE Calvi n P Amaury Work Phone: Start: 10-17-2020 MRSA BY PCR Juan M Quick Work Phone: Start: 10-17-2020 ACCUCHECK GLUCOSE Calvi n P Amaury Work Phone: Start: 10-17-2020 Basic metabolic 2000 panel Juan M Quick Work Phone: Start: 10-17-2020 ACCUCHECK GLUCOSE Calvi n P Amaury Work Phone: Start: 10-17-2020 OSMOLALITY, URINE Bull Quick Work Phone: Start: 10-17-2020 SODIUM, URINE RANDOM Um jose Quick Work Phone: Start: 10-17-2020 ACCUCHECK GLUCOSE Calvi n P Amaury Work Phone: Start: 10-17-2020 Basic metabolic 2000 panel Juan M Quick Work Phone: Start: 10-17-2020 CBC W Auto Different ial panel - Blood Augusta Weston Work Phone: Start: 10-16-2020 Basic metabolic 2000 panel Juan M Quick Work Phone: Start: 10-16-2020 ACCUCHECK GLUCOSE Calvi n P Amaury Work Phone: Start: 10-16-2020 Basic metabolic 2000 panel Juan M Quick Work Phone: Start: 10-16-2020 ACCUCHECK GLUCOSE Calvi n P Amaury Work Phone: Start: 10-16-2020 ACCUCHECK GLUCOSE Calvi n P Amaury Work Phone: Start: 10-16-2020 Osmolality [Osmolality] Juan M Quick Work Phone: Start: 10-16-2020 Urate [Mass/Vol] Kush Quick Work Phone: Start: 10-16-2020 Basic metabolic 2000 panel Juan M Quick Work Phone: Start: 10-16-2020 CK (CPK) Juan M Quick Work Phone: Start: 10-16-2020 HEPATIC FUNCTION PANEL Juan M Quick Work Phone: Start: 10-16-2020 ACCUCHECK GLUCOSE Calvi n P Amaury Work Phone: Start: 10-16-2020 URINALYSIS MACROSCOPIC Milvia Houston Work Phone: Start: 10-16-2020 SARS COV 2 RNA, QL R EAL TIME RT PCR Milvia Houston Work Phone: Start: 10-16-2020 US VENOUS DOPPLER RI GHT LOWER Milvia Houston Work Phone: Start: 10-16-2020 ACCUCHECK GLUCOSE Calvi n P Amaury Work Phone: Start: 10-16-2020 Standard ECG Milvia Watkins Leora fuchs Work Phone: Start: 10-16-2020 Microscopic examinat ion of blood, culture Milvia Houston Work Phone: Start: 10-16-2020 Radiologic examinati on tibia & fibula 2 views Milvia Houston Work Phone: Start: 10-16-2020 Ct lower extremity w /o contrast material Milvia Houston Work Phone: Start: 10-16-2020 Ct cervical spine w/ o contrast material Milvia Houston Work Phone: Start: 10-15-2020 Ct head/brain w/o co ntrast material Milvia Houston Work Phone: Start: 10-15-2020 Lactate [Moles/Vol] Huong Houston Work Phone: Start: 10-15-2020 Basic metabolic 2000 panel Milvia Houston Work Phone: Start: 10-15-2020 COMPLETE BLOOD COUNT WITH DIFFERENTIAL Milvia Houston Work Phone: Start: 10-15-2020 EMS RUN SHEET [facility] Work Phone (unformatted): [phone] Start: 10-14-2020 Microscopic examinat ion of blood, culture Milvia Houston Work Phone: Start: 10-04-2020 Myocardial spect mul tiple studies Brian Yenni Katie Work Phone: Start: 10-04-2020 Cv strs tst xers&/or rx cont ecg trcg only Brian Wilson Work Phone: Plan of Treatment Date Care Activity Detail Author Start: 06-30-2027 TETANUS VACCINE 11+ [facility] 11+ [facility] Start: 12-15-2026 DIABETES SCREENING DIABETES SCREENIN [place] [employer] Start: 11-11-2026 DIABETES SCREENING DIABETES SCREENIN G [facility] Start: 09-16-2026 DIABETES SCREENING DIABETES SCREENIN [place] [employer] Start: 09-02-2026 DIABETES SCREENING [facility] [employer] Start: 03-24-2026 Diabetes: Estimated Glomerular Filtration Rate for [facility] Diabetes: Estimated Glomerular Filtration Rate for [facility] [employer] Start: 03-21-2026 Diabetes: Estimated Glomerular Filtration Rate for [facility] Diabetes: Estimated Glomerular Filtration Rate for [employer] [facility] Start: 03-15-2026 Diabetes: Estimated Glomerular Filtration Rate for [facility] Diabetes: Estimated Glomerular Filtration Rate for [facility] Start: 03-14-2026 Thyroid stimulating hormone measurement TSH Level [facility] Start: 02-23-2026 Depression Screening Depression Scre ing [facility] [employer] Start: 02-02-2026 Diabetes: Estimated Glomerular Filtration Rate for [facility] Diabetes: Estimated Glomerular Filtration Rate for [employer] [facility] [employer] Start: 01-31-2026 Diabetes: Estimated Glomerular Filtration Rate for [facility] Diabetes: Estimated Glomerular Filtration Rate for [employer] [facility] [employer] Start: 01-25-2026 DIABETES SCREENING DIABETES [facility]CREENIN [facility] [employer] Start: 01-25-2026 Thyroid stimulating hormone measurement TSH Level [facility] Start: 12-05-2025 Diabetes: Estimated Glomerular Filtration Rate for [facility] Diabetes: Estimated Glomerular Filtration Rate for [facility] Start: 10-15-2025 Depression Screening Depression Scre ening [facility] Start: 09-24-2025 Diabetes: Estimated Glomerular Filtration Rate for [facility] Diabetes: Estimated Glomerular Filtration Rate for [facility] Start: 09-21-2025 Thyroid stimulating hormone measurement TSH Level [facility] Start: 05-10-2025 End: 05-10-2025 Patient encounter procedure 05/10/2025 11:00 AM EDT Office Visit [facility] Endocrinology - [address] [phone] Priscila Laguerre, 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 - NUCLEAR PLANT INSTRUMENT TECHNICIAN [address] [place] [address] [facility] Start: 04-12-2025 COVID-19 Vaccine ( season) COVID-19 Vaccine ( season) [facility] Start: 04-12-[address] [facility] Start: 04-07-2025 End: 04-07-2025 Patient encounter procedure 04/07/2025 11:00 AM EDT Office Visit [facility] Medicine [facility] [address] [facility] [address] [place] [phone] Leah Kaminski PA-C [address] [facility] [address] [place] [address] [facility] Start: 03-30-2025 End: 03-30-2025 Patient encounter procedure 03/30/2025 1:30 PM EDT Office Visit [facility] [address] [facility] [address] [place] [phone] Zoe Mlcean, 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 - NUCLEAR PLANT INSTRUMENT TECHNICIAN [address] [facility], [address] [place] [address] [facility] Start: 03-23-2025 End: 03-23-2025 Patient encounter procedure 03/23/2025 10:15 AM EDT Appointment [facility] - [place] [address] [place] [address] Jennifer Waldrop DPM [address] [place] [address] [facility] [place] Start: 03-16-2025 End: 03-16-2025 Patient encounter procedure 03/16/2025 10:15 AM EDT Appointment [facility] - [place] [address] [place] [address] Jennifer Waldrop DPM [address] [place] [address] [facility] [place] Start: 03-09-2025 End: 03-09-2025 Patient encounter procedure 03/09/2025 10:15 AM EDT Appointment [facility] - [place] [address] [place] [address] Jennifer Waldrop DPM [address] [place] [address] [facility] [place] Start: 03-02-2025 End: 03-02-2025 Patient encounter procedure 03/02/2025 10:15 AM EDT Appointment [facility] - [place] [address] [place] [address] Jennifer Waldrop DPM [address] [place] [address] [facility] [place] Start: 02-19-2025 End: 02-19-2025 Patient encounter procedure 02/19/2025 1:00 PM EDT Office Visit [facility] [address] [facility] [address] [place] [id number] Zoe Mclean, 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 - NUCLEAR PLANT INSTRUMENT TECHNICIAN [address] [facility], [address] [place] [address] [facility] Start: 01-29-2025 End: 01-29-2025 Patient encounter procedure 01/29/2025 11:00 AM EDT Office Visit [facility] [address] [place] [address] Sandi Hernandez, DO [address] [place] [address] [facility] Start: 01-26-2025 End: 01-26-2025 Patient encounter procedure 01/26/2025 9:45 AM EDT Appointment [facility] - [address] [address] Jennifer Waldrop DPM [address] [place] [address] [facility] [place] Start: 01-12-2025 End: 01-12-2025 Patient encounter procedure 01/12/2025 9:45 AM EDT Appointment [facility] - [place] [address] Jennifer Waldrop DPM [address] [place] [address] [facility] [place] Start: 01-07-2025 End: 01-07-2025 Patient encounter procedure 01/07/2025 1:00 PM EDT Office Visit [place] [address] Kraig Wright MD [address] [id number] [facility] [place] Start: 01-06-2025 End: 01-06-2025 Patient encounter procedure 01/06/2025 9:40 AM EDT Office Visit [facility] - [place] [address] [facility] [address] [place] [phone] Yohannes Britton MD [address] [place], [place] [phone] [facility] - [place] Start: 01-05-2025 End: 01-05-2025 Patient encounter procedure 01/05/2025 9:45 AM EDT Appointment [facility] - [place] [address] [place] [address] Jennifer Waldrop DPM [address] [place] [address] [facility] [place] Start: 01-02-2025 DIABETES SCREENING DIABETES SCREENIN [facility] Start: 12-29-2024 End: 12-29-2024 Patient encounter procedure 12/29/2024 10:15 AM EDT Appointment [facility] - [place] [address] [place] [address] Jennifer Waldrop DPM [address] [place] [address] [facility] [place] Start: 12-25-2024 End: 12-25-2024 Patient encounter procedure 12/25/2024 12:45 PM EDT Appointment [facility] - [place] [address] [place] [address] Nlalely Alas, DPLavell [address] [facility] [place] [address] [facility] [place] Start: 12-24-2024 End: 12-24-2025 Lipid 1996 panel - Serum or Plasma Lipid panel Lab Routine Mixed hyperlipidemia Expected: 12/24/2024 (Approximate), Expires: 12/24/2025 [facility] Comment on above: Expected: 12/24/2024 (Approximate), Expires: 12/24/2025 Start: 12-24-2024 End: 12-24-2025 Microalbumin/Creatinin e panel in random Urine Microalbumin / creatinine urine ratio Lab Routine Type 2 diabetes mellitus with hyperglycemia, with long-term current use of insulin (HCC) Expected: 12/24/2024 (Approximate), Expires: 12/24/2025 [facility] Work Phone: Comment on above: Expected: 12/24/2024 (Approximate), Expires: 12/24/2025 Start: 12-24-2024 End: 12-24-2024 Patient encounter procedure 12/24/2024 9:30 AM EDT Office Visit [facility] [address] [facility] [address] [place] [phone] Priscila Laguerre, 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 - [facility] [address] [place] [address] [facility] Start: 12-18-2024 End: 12-18-2024 Patient encounter procedure 12/18/2024 12:45 PM EDT Appointment [facility] [place] [address] Aditi Tan, VIPUL [address] [place] [address] [facility] [place] Start: 12-11-2024 End: 12-11-2024 Patient encounter procedure 12/11/2024 12:45 PM EDT Appointment [facility] - [place] [address] [place] [address] Nallely Alas, DPM [address] [address] [facility] [place] Start: 12-04-2024 End: 12-04-2024 Patient encounter procedure 12/04/2024 12:45 PM EDT Appointment [facility] - [place] [address] Nallely Alas, DPM [address] [place] [address] [facility] [place] Start: 11-29-2024 DIABETES SCREENING DIABETES SCREENIN G [facility] Start: 11-27-2024 End: 11-27-2024 Patient encounter procedure 11/27/2024 8:45 AM EDT Appointment [facility] - [place] [address] [place] [address] Marielos Blair, 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 - NUCLEAR PLANT INSTRUMENT TECHNICIAN [address] [place] [address] [facility] [place] Start: 11-20-2024 End: 11-20-2024 Patient encounter procedure 11/20/2024 12:45 PM EDT Appointment [facility] - [place] [address] [place] [address] Nallely Alas, DPM [address] [place] [address] [facility] [place] Start: 11-13-2024 End: 11-13-2024 Patient encounter procedure 11/13/2024 1:15 PM EDT Appointment [facility] - [place] [address] Nallely Alas, DPM [address] [place] [address] [facility] [place] Start: 11-11-2024 Diabetes: KED eGFR (Estimated Glomerular Filtration Rate) Diabetes: KED eGFR (Estimated Glomerular Filtration Rate) [facility] Start: 11-09-2024 End: 11-09-2024 Patient encounter procedure 11/09/2024 9:30 AM EDT Office Visit [facility] [address] [facility] [place] [phone] Parisa Chance MD 155 [facility] [place] [address] [facility] Start: 11-06-2024 End: 11-06-2024 Patient encounter procedure 11/06/2024 12:45 PM EDT Appointment [facility] - [place] [address] Nallely Alas, DPM [address] [place] [address] [facility] - [place] Start: 10-30-2024 End: 10-30-2024 Patient encounter procedure 10/30/2024 2:00 PM EDT Appointment [facility] - [place] [address] [place] [address] Nallely Alas, DPM [address] [place] [address] [facility] [place] Start: 10-16-2024 End: 10-16-2024 Patient encounter procedure 10/16/2024 12:45 PM EST Appointment [facility] - [place] [address] [place] [address] Nallely Alas, DPM [address] [place] [address] [facility] - [place] Start: 10-15-2024 End: 10-15-2025 MR Brain WO contrast MR brain wo contrast Imaging Routine Memory loss Expected: 10/15/2024, Expires: 10/15/2025 [facility] Work Phone: Comment on above: Expected: 10/15/2024 , Expires: 10/15/2025 Start: 10-13-2024 DIABETES SCREENING DIABETES SCREENIN G [facility] Start: 10-09-2024 End: 10-09-2024 Patient encounter procedure 10/09/2024 12:45 PM EST Appointment [facility] - [place] [address] [place] [address] Nallely Alas, DPM [address] [facility] [address] [address] [facility] - [place] Start: 10-02-2024 End: 10-02-2024 Patient encounter procedure 10/02/2024 9:15 AM EST Appointment [facility] - [place] [address] [place] [address] Marielos Blair, 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 - NUCLEAR PLANT INSTRUMENT TECHNICIAN [address] [place] [address] [facility] [place] Start: 09-12-2024 Diabetes: KED eGFR (Estimated Glomerular Filtration Rate) Diabetes: KED eGFR (Estimated Glomerular Filtration Rate) [facility] Start: 08-03-2024 DIABETES SCREENING DIABETES SCREENIN G [facility] Start: 06-09-2024 DIABETES SCREENING DIABETES SCREENIN G [facility] Start: 04-12-2024 COVID-19 Vaccine ( season) COVID-19 Vaccine ( season) [facility] Start: 04-12-2024 COVID-19 Vaccine ( season) COVID-19 Vaccine ( season) [facility] Start: 04-12-2024 Influenza vaccination Influenza Vacc ine (#1) [facility] Start: 03-19-2024 End: 03-19-2024 Patient encounter procedure 03/19/2024 1:30 PM EDT Appointment [facility] [address] [address] Nader Navarro MD [address] [address] Estiven Mcfadden DPM [address] [place] [address] [facility] Start: 03-17-2024 End: 03-17-2024 Patient encounter procedure 03/17/2024 1:45 PM EDT Office Visit [facility] [address] [place] [address] Lisy Pace MD [address] [place] [address] [facility] Start: 03-12-2024 Hemoglobin A1c measurement Hemoglobin A1C [facility] Start: 03-12-2024 Hemoglobin A1c/Hemoglobin.total in Blood HEMOGLOBIN A1C [facility] Start: 03-12-2024 Refusal of treatment by patient [facility] Start: 02-27-2024 End: 02-27-2024 Patient encounter procedure 02/27/2024 1:45 PM EDT Appointment [facility] [address] [address] Nader Navarro MD [address] [address] Estiven Mcfadden DPM [address] [place] [address] [facility] Start: 02-15-2024 DIABETES SCREENING DIABETES SCREENIN G [facility] Start: 01-30-2024 End: 01-30-2024 Patient encounter procedure 01/30/2024 1:45 PM EDT Appointment [facility] [address] [address] Nader Navarro MD [address] [facility] [address] [place] [address] Estiven Mcfadden DPM [address] [place] [address] [facility] Start: 01-23-2024 End: 01-23-2024 Patient encounter procedure 01/23/2024 1:30 PM EDT Appointment [facility] [address] [facility] [address] [place] [address] Nader Navarro MD [address] [address] Estiven Mcfadden DPM [address] [place] [address] [facility] Start: 01-17-2024 End: 01-17-2024 Patient encounter procedure 01/17/2024 9:15 AM EDT Office Visit [address] [place] [address] Sandi Hernandez, [address] [place] [address] [facility] Start: 01-13-2024 End: 01-13-2024 Patient encounter procedure 01/13/2024 2:30 PM EDT Office Visit [address] [place] [address] Sandi Hernandez, DO [address] [place] [address] [facility] Start: 01-12-2024 Diabetes: KED eGFR (Estimated Glomerular Filtration Rate) Diabetes: KED eGFR (Estimated Glomerular Filtration Rate) [facility] Start: 01-10-2024 End: 01-10-2024 Patient encounter procedure 01/10/2024 9:15 AM EDT Office Visit [facility] [address] [facility] [place] [place] [address] Sandi Hernandez, DO [address] [place] [address] [facility] Start: 01-09-2024 End: 01-09-2024 Patient encounter procedure 01/09/2024 1:30 PM EDT Appointment [facility] [address] [address] Nader Navarro MD [address] [address] Estiven Mcfadden DPM [address] [place] [address] [facility] Start: 12-19-2023 End: 12-19-2023 Patient encounter procedure 12/19/2023 12:30 PM EDT Appointment [facility] [address] [address] Nader Navarro MD [address] [address] Estiven Mcfadden DPM [address] [place] [address] [facility] Start: 12-16-2023 End: 12-16-2023 Patient encounter procedure 12/16/2023 11:15 AM EDT Office Visit [facility] [address] [place] [address] Lisy Pace MD [address] [place] [address] [facility] Start: 12-12-2023 End: 12-12-2023 Patient encounter procedure 12/12/2023 2:15 PM EDT Appointment [facility] [address] [address] Nader Navarro MD [address] [address] Estiven Mcfadden DPM [address] [place] [address] [facility] Start: 11-25-2023 End: 11-25-2023 Patient encounter procedure 11/25/2023 2:45 PM EDT Appointment [facility] [address] [address] Nader Navarro MD [address] [address] Estiven Mcfadden DPM [address] [place] [address] [facility] Start: 11-14-2023 End: 11-14-2023 Patient encounter procedure 11/14/2023 1:30 PM EDT Appointment [facility] [address] [address] Nader Navarro MD [address] [address] Estiven Mcfadden DPM [address] [place] [address] [facility] Start: 11-14-2023 Subsequent hospital visit by physician 11/14/2023 1:30 PM EDT Hospital Encounter [facility] 2400 [facility] [address] [place] [address] Nader Navarro MD 2400 [facility] [address] [place] [address] Estiven Mcfadden DPM [address] [place] [address] Wound, open [facility] Comment on above: Wound, open Start: 11-08-2023 End: 11-08-2023 ambulatory 11/08/2023 11:30 AM EDT PT Regular Visit Physical Therapy at [facility] 2400 [facility] [address] [place] [address] Lisy Pace MD [address] [place] [address] John Rolon PTA Physical Therapy at [facility] Start: 11-01-2023 End: 11-01-2023 ambulatory 11/01/2023 11:30 AM EDT PT Regular Visit Physical Therapy at [facility] 2400 [facility] [address] [place] [address] Lisy Pace MD [address] [place] [address] John Rolon PTA Physical Therapy at [facility] Start: 10-31-2023 End: 10-31-2023 Patient encounter procedure 10/31/2023 1:30 PM EDT Appointment [facility] 2400 [facility] [address] [place] [address] Nader Navarro MD [address] [address] Estiven Mcfadden DPM [address] [place] [address] [facility] Start: 10-25-2023 End: 10-25-2023 ambulatory 10/25/2023 9:30 AM EDT PT Regular Visit Physical Therapy at [facility] [address] [facility] [address] [place] [address] Lisy Pace MD [address] [place] [address] John Rolon PTA Physical Therapy at [facility] Start: 10-22-2023 DIABETES SCREENING DIABETES SCREENIN G [facility] Start: 10-18-2023 End: 10-18-2023 Patient encounter procedure 10/18/2023 10:45 AM EST Office Visit [facility] [address] [place] [address] Lisy Pace MD [address] [place] [address] [facility] Start: 10-18-2023 End: 10-18-2023 ambulatory 10/18/2023 9:30 AM EST PT Regular Visit Physical Therapy at [facility] [address] [facility] [address] [place] [address] Lisy Pace MD [address] [place] [address] Jimmie Zeigler, PT Physical Therapy at [facility] Start: 10-17-2023 DIABETES SCREENING DIABETES SCREENIN G [facility] Start: 10-17-2023 End: 10-17-2023 Patient encounter procedure 10/17/2023 1:30 PM EST Appointment [facility] [address] [facility] [address] [place] [address] Nader Navarro MD [address] [facility] [address] [place] [address] Estiven Mcfadden, VIPUL [address] [place] [address] [facility] Start: 10-04-2023 DIABETES SCREENING DIABETES SCREENIN [facility] Start: 10-03-2023 End: 10-03-2023 Patient encounter procedure 10/03/2023 1:30 PM EST Appointment [facility] [address] [address] Nader Navarro MD [address] [address] Estiven Mcfadden DPM [address] [place] [address] [facility] Start: 09-19-2023 End: 09-19-2023 Patient encounter procedure 09/19/2023 1:30 PM EST Appointment [facility] [address] [address] Nader Navarro MD [address] [address] Estiven Mcfadden DPM [address] [place] [address] [facility] Start: 09-16-2023 End: 09-16-2023 Patient encounter procedure 09/16/2023 11:00 AM EST Office Visit [facility] [address] [place] [address] Lisy Pace MD [address] [place] [address] [facility] Start: 09-05-2023 End: 09-05-2023 Patient encounter procedure 09/05/2023 1:30 PM EST Appointment [facility] [address] [address] Nader Navarro MD [address] [address] Estiven Mcfadden DPM [address] [place] [address] [facility] Start: 09-04-2023 End: 09-04-2023 Patient encounter procedure 09/04/2023 1:30 PM EST Office Visit [facility] [address] [place] [address] Lisy Pace MD [address] [place] [address] [facility] Start: 08-22-2023 End: 08-22-2023 Patient encounter procedure 08/22/2023 1:30 PM EST Appointment [facility] [address] [address] Nader Navarro MD [address] [address] Estiven Mcfadden DPM [address] [place] [address] [facility] Start: 08-21-2023 End: 08-21-2023 Patient encounter procedure 08/21/2023 11:15 AM EST Office Visit [facility] [address] [place] [address] Lisy Pace MD [address] [place] [address] [facility] Start: 08-01-2023 End: 08-01-2023 Patient encounter procedure 08/01/2023 1:30 PM EST Appointment [facility] [address] [address] Nader Navarro MD [address] [address] Estiven Mcfadden DPM [address] [place] [address] [facility] Start: 07-25-2023 End: 07-25-2023 Patient encounter procedure 07/25/2023 1:30 PM EST Appointment [facility] [address] [address] Nader Navarro MD [address] [address] Estiven Mcfadden DPM [address] [place] [address] [facility] Start: 07-13-2023 Hemoglobin A1c/Hemoglobin.total in Blood HEMOGLOBIN A1C [facility] Start: 07-11-2023 End: 07-11-2023 Patient encounter procedure 07/11/2023 1:30 PM EST Appointment [facility] [address] [address] Nader Navarro MD [address] [address] Estiven Mcfadden DPM [address] [place] [address] [facility] Start: 06-26-2023 Diabetes: KED uACR (Urine Albumin / Creatinine Ratio) Diabetes: KED uACR (Urine Albumin / Creatinine Ratio) [facility] Start: 06-20-2023 End: 06-20-2023 Patient encounter procedure 06/20/2023 1:30 PM EST Appointment [facility] [address] [address] Nader Navarro MD [address] [address] Estiven Mcfadden DPM [address] [place] [address] [facility] Start: 06-06-2023 End: 06-06-2023 Patient encounter procedure 06/06/2023 1:30 PM EDT Appointment [facility] [address] [address] Nader Navarro MD [address] [address] Estiven Mcfadden DPM [address] [place] [address] [facility] Start: 05-23-2023 End: 05-23-2023 Patient encounter procedure [facility] Start: 05-06-2023 End: 05-06-2023 Patient encounter procedure 05/06/2023 Appointment Nader Navarro MD [address] [address] Estiven Mcfadden DPM [address] [place] [address] [facility] Start: 04-18-2023 End: 04-18-2023 Patient encounter procedure 04/18/2023 Appointment Nader Navarro MD [address] [address] Estiven Mcfadden DPM [address] [place] [address] [facility] Start: 04-12-2023 COVID-19 VACCINE (2022- season) COVID-19 VACCINE ( season) [facility] Start: 04-12-2023 COVID-19 Vaccines () COVID-19 Vaccines () [facility] Start: 04-04-2023 End: 04-04-2023 Patient encounter procedure 04/04/2023 Appointment Nader Navarro MD [address] [address] Estiven Mcfadden DPM [address] [place] [address] [facility] Start: 03-21-2023 End: 03-21-2023 Patient encounter procedure 03/21/2023 Office Visit Cardiology Brian Wilson MD [address] [place] [address] [facility] Start: 03-21-2023 End: 03-21-2023 Patient encounter procedure 03/21/2023 Appointment Nader Navarro MD [address] [address] Estiven Mcfadden DPM [address] [place] [address] [facility] Start: 03-12-2023 Refusal of treatment by patient INFLUENZA VACCINE [facility] Start: 01-18-2023 BREAST CANCER SCREENING BREAST CANCER SCREENING [facility] Start: 01-18-2023 Screening for malignant neoplasm of breast Breast Cancer Screening [facility] Start: 01-14-2023 DIABETES SCREENING DIABETES SCREENIN G [facility] Start: 01-02-2023 Diabetic foot examination Diabetes: Foot Exam [facility] Start: 01-02-2023 FOOT EXAM FOR DIABETICS FOOT EXAM FOR DIABETICS [facility] Start: 12-29-2022 Diabetes: KED eGFR (Estimated Glomerular Filtration Rate) Diabetes: KED eGFR (Estimated Glomerular Filtration Rate) [facility] Start: 09-23-2022 OSTEOPOROSIS SCREENING OSTEOPOROSIS SCREENING [facility] Start: 09-23-2022 Screening for osteoporosis Osteoporosis Screening [facility] Start: 07-30-2022 End: 07-30-2022 Patient encounter procedure 07/30/2022 Office Visit Cardiology Radha De Leon TiarraALEJANDRINA navarro [address] [facility] [address] [place] [address] [facility] Start: 07-01-2022 Hemoglobin A1c/Hemoglobin.total in Blood HEMOGLOBIN A1C [facility] Start: 06-26-2022 End: 06-26-2022 Patient encounter procedure 06/26/2022 Office Visit Family Practice Lisy Pace MD [address] [place] [address] [facility] Start: 06-09-2022 DIABETES: MEDICAL ATTENTION FOR NEPHROPATHY DIABETES: MEDICAL ATTENTION FOR NEPHROPATHY [facility] Start: 04-12-2022 End: 04-12-2022 Patient encounter procedure 04/12/2022 Office Visit Cardiology Brian Wilson MD [address] [place] [address] [facility] Start: 03-12-2022 Refusal of treatment by patient INFLUENZA VACCINE [facility] Start: 02-14-2022 DIABETES: MEDICAL ATTENTION FOR NEPHROPATHY DIABETES: MEDICAL ATTENTION FOR NEPHROPATHY [facility] Start: 02-14-2022 FOOT EXAM FOR DIABETICS FOOT EXAM FOR DIABETICS [facility] Start: 02-09-2022 Diabetes: KED eGFR (Estimated Glomerular Filtration Rate) Diabetes: KED eGFR (Estimated Glomerular Filtration Rate) [facility] Start: 02-01-2022 End: 02-01-2022 Patient encounter procedure 02/01/2022 Appointment Estiven Mcfadden DPM [address] [place] [address] Nader Navarro MD [address] [facility] [address] [place] [address] [facility] Start: 01-29-2022 End: 01-29-2022 Patient encounter procedure 01/29/2022 Office Visit Cardiology HemalathaRadha APRN [address] [facility] [address] [place] [address] [facility] Start: 01-18-2022 End: 01-18-2022 Patient encounter procedure 01/18/2022 Appointment Radiology Lisy Pace MD [address] [place] [address] [facility] Start: 01-11-2022 End: 01-11-2022 Patient encounter procedure 01/11/2022 Appointment Estiven Mcfadden DPM [address] [place] [address] Nader Navarro MD [address] [facility] [address] [place] [address] [facility] Start: 01-02-2022 End: 01-02-2022 Patient encounter procedure 01/02/2022 Office Visit Family Practice Lisy Pace MD [address] [place] [address] [facility] Start: 12-27-2021 End: 12-27-2021 Patient encounter procedure 12/27/2021 Office Visit Family Practice Lisy Pace MD [address] [place] [address] [facility] Start: 12-22-2021 End: 12-22-2021 Patient encounter procedure 12/22/2021 Appointment Estiven Mcfadden DPM [address] [place] [address] [facility] Start: 12-14-2021 Subsequent hospital visit by physician 12/14/2021 Hospital Encounter Estiven Mcfadden DPM [address] [place] [address] Wound, open [facility] Comment on above: Wound, open Start: 12-09-2021 COVID-19 VACCINE (4 - Booster for Pfizer series) COVID-19 VACCINE (4 - Booster for Pfizer series) [facility] Start: 12-07-2021 End: 12-07-2021 Patient encounter procedure [facility] Start: 12-06-2021 Hemoglobin A1c/Hemoglobin.total in Blood HEMOGLOBIN A1C [facility] Start: 11-23-2021 Subsequent hospital visit by physician 11/23/2021 Hospital Encounter Estiven Mcfadden DPM [address] [place] [address] Wound, open [facility] Comment on above: Wound, open Start: 11-23-2021 End: 11-23-2021 Patient encounter procedure 11/23/2021 Appointment Nader Navarro MD [address] [address] [facility] Start: 11-09-2021 End: 11-09-2021 Patient encounter procedure 11/09/2021 Appointment Ashlie Cardenas MD [address] [place] [address] [place] [address] [facility] Start: 10-26-2021 End: 10-26-2021 Patient encounter procedure 10/26/2021 Appointment Nader Navarro MD [address] [address] [facility] Start: 10-19-2021 End: 10-19-2021 Patient encounter procedure 10/19/2021 Appointment Nader Navarro MD [address] [address] [facility] Start: 10-05-2021 COVID-19 VACCINE (4 - Pfizer series) COVID-19 VACCINE (4 - Pfizer series) [facility] Start: 10-05-2021 End: 10-05-2021 Patient encounter procedure 10/05/2021 Appointment Nader Navarro MD [address] [address] [facility] Start: 09-28-2021 End: 09-28-2021 Patient encounter procedure 09/28/2021 Appointment Nader Navarro MD [address] [address] [facility] Start: 09-23-2021 BREAST CANCER SCREENING BREAST CANCER SCREENING [facility] Start: 09-14-2021 End: 09-14-2021 Patient encounter procedure 09/14/2021 Appointment Nader Navarro MD [address] [address] [facility] Start: 08-31-2021 End: 08-31-2021 Patient encounter procedure 08/31/2021 Appointment Nader Navarro MD [address] [address] [facility] Start: 08-17-2021 End: 08-17-2021 Patient encounter procedure 08/17/2021 Appointment Nader Navarro MD [address] [address] [facility] Start: 08-12-2021 Hemoglobin A1c/Hemoglobin.total in Blood HEMOGLOBIN A1C [facility] Start: 12-28-2021 COVID-19 VACCINE (3 - Pfizer booster) COVID-19 VACCINE (3 - Pfizer booster) [facility] Start: 08-03-2021 End: 08-03-2021 Patient encounter procedure 08/03/2021 Appointment Nader Navarro MD [address] [address] [facility] Start: 07-20-2021 End: 07-20-2021 Patient encounter procedure 07/20/2021 Appointment Nader Navarro MD [address] [address] [facility] Start: 07-13-2021 End: 07-13-2021 Patient encounter procedure 07/13/2021 Appointment Ashlie Cardenas MD [address] [place] [address] [place] [address] [facility] Start: 06-29-2021 DIABETES: MEDICAL ATTENTION FOR NEPHROPATHY DIABETES: MEDICAL ATTENTION FOR NEPHROPATHY [facility] Start: 06-29-2021 End: 06-29-2021 Patient encounter procedure 06/29/2021 Appointment Nader Navarro MD [address] [address] [facility] Start: 06-27-2021 DIABETES: MEDICAL ATTENTION FOR NEPHROPATHY DIABETES: MEDICAL ATTENTION FOR NEPHROPATHY [facility] Start: 05-17-2021 End: 05-17-2021 Patient encounter procedure 05/17/2021 Office Visit Family Practice Lisy Pace MD [address] [place] [address] [phone] [facility] Start: 04-06-2021 End: 04-06-2021 Office Visit 04/06/2021 Office Visit Cardiology Brian Wilson MD [address] [place] [address] [phone] [facility] Start: 03-31-2021 End: 03-31-2021 Patient encounter procedure 03/31/2021 Appointment Nader Navarro MD 2400 [facility] [address] [place] [address] [phone] [facility] Start: 03-24-2021 End: 03-24-2021 Patient encounter procedure 03/24/2021 Appointment Nader Navarro MD [address] [facility] [address] [place] [address] [phone] [facility] Start: 03-12-2021 Influenza vaccination INFLUENZA VACC INE [facility] Start: 01-14-2021 FOOT EXAM FOR DIABETICS FOOT EXAM FOR DIABETICS [facility] Start: 12-28-2020 End: 12-28-2020 Office Visit 12/28/2020 Office Visit Family Practice Lisy Pace MD [address] [place] [address] [phone] [facility] Start: 12-25-2020 HbA1c (Bld) [Mass fraction] HEMOGLOBIN A1C [facility] Start: 11-11-2020 End: 11-11-2020 Appointment [facility] Start: 10-28-2020 End: 10-28-2020 Appointment 10/28/2020 Appointment Nader Navarro MD 2400 [facility] [address] [place] [address] [phone] [facility] Start: 10-14-2020 End: 10-14-2020 Appointment 10/14/2020 Appointment Nader Navarro MD 2400 [facility] [address] [place] [address] [phone] [facility] Start: 10-07-2020 End: 10-07-2020 Office Visit 10/07/2020 Office Visit Cardiology Radha De Leon APRN [address] [address] [phone] [facility] Start: 07-17-2020 BREAST CANCER SCREENING BREAST CANCER SCREENING [facility] Start: 07-12-2020 HbA1c (Bld) [Mass fraction] HEMOGLOBIN A1C [facility] Start: 06-17-2020 DIABETES: MEDICAL ATTENTION FOR NEPHROPATHY DIABETES: MEDICAL ATTENTION FOR NEPHROPATHY [facility] Start: 04-07-2020 End: 04-07-2020 Appointment 04/07/2020 Appointment [facility] Start: 03-12-2020 Influenza vaccination INFLUENZA VACC INE [facility] Start: 07-01-2017 DTaP/Tdap/Td VACCINE S (1 - Tdap) DTaP/Tdap/Td VACCINES (1 - Tdap) [facility] Start: 2014 RSV Immunization for Adults (1 - 1-dose 75+ series) RSV Immunization for Adults (1 - 1-dose 75+ series) [facility] Start: 2004 Microscopic observation Cyto stain Nom (Cvx) PAP SMEAR [facility] Start: 2004 PNEUMOCOCCAL 13 VACCINE (PCV13) PNEUMOCOCCAL 13 VACCINE (PCV13) [facility] Start: 2004 PNEUMOCOCCAL 23 VACCINE (PPSV23) PNEUMOCOCCAL 23 VACCINE (PPSV23) [facility] Start: 1999 HEPATITIS B VACCINES (1 of 3 - Risk 3-dose series) HEPATITIS B VACCINES (1 of 3 - Risk 3-dose series) [facility] Start: 1989 OSTEOPOROSIS SCREENING OSTEOPOROSIS SCREENING [facility] Start: 1989 Pneumococcal Vaccine : 50+ Years (1 of 1 - PCV) Pneumococcal Vaccine: 50+ Years (1 of 1 - PCV) [facility] Start: 1989 Zoster vaccine hzv live for subcutaneous use ZOSTER VACCINE (1 of 2) [facility] Start: 1989 Zoster Vaccines (1 o f 2) Zoster Vaccines (1 of 2) [facility] Start: 1958 DTaP/Tdap/Td Vaccine s (1 - Tdap) DTaP/Tdap/Td Vaccines (1 - Tdap) [facility] Start: 1958 HEPATITIS B VACCINES (1 of 3 - Risk 3-dose series) HEPATITIS B VACCINES (1 of 3 - Risk 3-dose series) [facility] Start: 1958 Pneumococcal Vaccine : 50+ Years (1 of 2 - PCV) Pneumococcal Vaccine: 50+ Years (1 of 2 - PCV) [facility] Start: 1957 Diabetes: KED uACR (Urine Albumin / Creatinine Ratio) Diabetes: KED uACR (Urine Albumin / Creatinine Ratio) [facility] Start: 1957 Diabetes: Urine Albumin-Creatinine Ratio for [facility] Diabetes: Urine Albumin-Creatinine Ratio for [facility] Start: 1951 Depression Screening Depression Scre ening [facility] Start: 1949 DIABETES: EYE EXAM DIABETES: EYE EXA M [facility] Start: 1945 PNEUMOCOCCAL VACCINE : 65+ Years (1 - PCV) PNEUMOCOCCAL VACCINE: 65+ Years (1 - PCV) [facility] Start: 1945 PNEUMOCOCCAL VACCINE : 65+ Years (1 of 2 - PCV) PNEUMOCOCCAL VACCINE: 65+ Years (1 of 2 - PCV) [facility] Start: 1945 Pneumococcal Vaccine s: 65+ Years (1 of 2 - PCV) Pneumococcal Vaccines: 65+ Years (1 of 2 - PCV) [facility] Start: 1939 Medicare Annual Wellness (AWV) Medicare Annual Wellness (AWV) [facility] Start: 1939 Medicare Annual Wellness Visit MEDICARE ANNUAL WELLNESS VISIT [facility] Start: 1939 Screening for osteoporosis Bone Density Scan [facility] Start: 1939 Thyroid stimulating hormone measurement TSH Level [facility] [employer] End: 03-21-2025 Aerobic and Anaerobic Culture with Stain [facility] [employer] Work Phone: Comment on above: Once (Lab) for 1 Occ urrences starting 03/21/2025 until 03/21/2025 Bacteria identified in Blood by Culture [facility] [employer] Bacteria identified in Unspecified specimen by Aerobe culture Culture, Aerobic Bacteria with Gram Stain Microbiology Routine 03/21/2025 6:36 PM EDT [facility] [employer] Bacteria identified in Unspecified specimen by Anaerobe culture Anaerobic culture Microbiology Routine 03/21/2025 6:36 PM EDT [facility] [employer] End: 01-26-2025 Bacteria identified in Urine by Culture [facility] [employer] Work Phone: Comment on above: Once (Lab) for 1 Occ urrences starting 01/26/2025 until 01/26/2025 Basic metabolic 2000 panel BASIC METABOLIC PANEL Lab Timed at 06 until discontinued starting 10/21/2020, 1 completed [facility] Comment on above: at 06 until disconti nued starting 10/21/2020, 1 completed [facility] CULTURE, BLOOD [facility] Work Phone: BKR CULTURE, WOUND BKR CULTURE, WOUND Lab Routine 06/22/2021 11:24 AM EST [employer] Work Phone: CULTURE, MISCELLANEO US WITH GRAM STAIN CULTURE, MISCELLANEOUS WITH GRAM STAIN Lab Routine 10/18/2020 1:39 PM EST [facility] CULTURE, WOUND CULTURE, WOUND L ab Routine 06/22/2021 11:24 AM EST [facility] Dressing Order: Collagen, Xeroform; Three times per week; 4x4 gauze; Medfix tape Dressing Order: Collagen, Xeroform; Three times per week; 4x4 gauze; Medfix tape Wound Ostomy Routine 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) Ordered: 11/13/2024 [facility] Work Phone: Comment on above: Ordered: 11/13/2024 Dressing Order: Collagen, Xeroform; Three times per week; 4x4 gauze; Medfix tape Dressing Order: Collagen, Xeroform; Three times per week; 4x4 gauze; Medfix tape Wound Ostomy Routine 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) Ordered: 11/20/2024 [facility] Work Phone: Comment on above: Ordered: 11/20/2024 Dressing Order: Collagen, Xeroform; Three times per week; 4x4 gauze; Medfix tape Dressing Order: Collagen, Xeroform; Three times per week; 4x4 gauze; Medfix tape Wound Ostomy Routine Ordered: 11/27/2024 [facility] Work Phone: Comment on above: Ordered: 11/27/2024 Dressing Order: Collagen, Xeroform; Three times per week; 4x4 gauze; Medfix tape Dressing Order: Collagen, Xeroform; Three times per week; 4x4 gauze; Medfix tape Wound Ostomy Routine 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) Ordered: 12/11/2024 [facility] Work Phone: Comment on above: Ordered: 12/11/2024 Dressing Order: Collagen, Xeroform; Three times per week; 4x4 gauze; Medfix tape Dressing Order: Collagen, Xeroform; Three times per week; 4x4 gauze; Medfix tape Wound Ostomy Routine 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) Ordered: 12/29/2024 [facility] Work Phone: Comment on above: Ordered: 12/29/2024 Dressing Order: Collagen, Xeroform; Three times per week; 4x4 gauze; Medfix tape Dressing Order: Collagen, Xeroform; Three times per week; 4x4 gauze; Medfix tape Wound Ostomy Routine Diabetic ulcer of right foot associated with diabetes mellitus due to underlying condition, with necrosis of muscle, unspecified part of foot (HCC) Ordered: 01/05/2025 [facility] Work Phone: Comment on above: Ordered: 01/05/2025 Dressing Order: Collagen, Xeroform; Three times per week; 4x4 gauze; Medfix tape Dressing Order: Collagen, Xeroform; Three times per week; 4x4 gauze; Medfix tape Wound Ostomy Routine 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) Ordered: 01/12/2025 [facility] Work Phone: Comment on above: Ordered: 01/12/2025 Dressing Order: Collagen, Xeroform; Three times per week; Medfix tape Dressing Order: Collagen, Xeroform; Three times per week; Medfix tape Wound Ostomy Routine Diabetic ulcer of right foot associated with diabetes mellitus due to underlying condition, with necrosis of muscle, unspecified part of foot (HCC) Uncontrolled type 2 diabetes mellitus with hyperglycemia (HCC) Ordered: 10/16/2024 [facility] Work Phone: Comment on above: Ordered: 10/16/2024 Dressing Order: Collagen, Xeroform; Three times per week; Medfix tape Dressing Order: Collagen, Xeroform; Three times per week; Medfix tape Wound Ostomy Routine 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) Ordered: 11/06/2024 [facility] Work Phone: Comment on above: Ordered: 11/06/2024 Dressing Order: Collagen; Daily; Silicone foam borders (multiple sizes) Dressing Order: Collagen; Daily; Silicone foam borders (multiple sizes) Wound Ostomy Routine Diabetic ulcer of other part of right foot associated with diabetes mellitus due to underlying condition, with necrosis of muscle (HCC) Ordered: 10/02/2024 [facility] Work Phone: Comment on above: Ordered: 10/02/2024 Dressing Order: Collagen; Three times per week; 4x4 gauze; Medfix tape Dressing Order: Collagen; Three times per week; 4x4 gauze; Medfix tape Wound Ostomy Routine Ulcer of right foot with fat layer exposed (HCC) Diabetic polyneuropathy associated with type 2 diabetes mellitus (HCC) Pes planus of both feet 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 Uncontrolled type 2 diabetes mellitus with hyperglycemia (HCC) Charcot's joint of foot, right Ordered: 02/23/2025 [facility] Work Phone: Comment on above: Ordered: 02/23/2025 Dressing Order: Collagen; Three times per week; 4x4 gauze; Medfix tape Dressing Order: Collagen; Three times per week; 4x4 gauze; Medfix tape Wound Ostomy Routine Ulcer of right foot with fat layer exposed (HCC) Diabetic polyneuropathy associated with type 2 diabetes mellitus (HCC) Pes planus of both feet 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 Uncontrolled type 2 diabetes mellitus with hyperglycemia (HCC) Charcot's joint of foot, right Ordered: 03/09/2025 [facility] Work Phone: Comment on above: Ordered: 03/09/2025 Dressing Order: Collagen; Three times per week; 4x4 gauze; Medfix tape (follow up in 1 week) Dressing Order: Collagen; Three times per week; 4x4 gauze; Medfix tape (follow up in 1 week) Wound Ostomy Routine Ulcer of right foot with fat layer exposed (HCC) Diabetic polyneuropathy associated with type 2 diabetes mellitus (HCC) Pes planus of both feet 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 Uncontrolled type 2 diabetes mellitus with hyperglycemia (HCC) Charcot's joint of foot, right Ordered: 03/02/2025 [facility] Work Phone: Comment on above: Ordered: 03/02/2025 Dressing Order: Collagen; Three times per week; Silicone foam borders (multiple sizes) Dressing Order: Collagen; Three times per week; Silicone foam borders (multiple sizes) Wound Ostomy Routine Diabetic ulcer of other part of right foot associated with diabetes mellitus due to underlying condition, with necrosis of muscle (HCC) Uncontrolled type 2 diabetes mellitus with hyperglycemia (HCC) Ordered: 10/09/2024 [facility] Work Phone: Comment on above: Ordered: 10/09/2024 Glucose [Mass/volume ] in Serum or Plasma [facility] Work Phone: Comment on above: at 07,11,16, 22 unti l discontinued starting 11/10/2023 at 00,04,08 etc unti l discontinued starting 11/10/2023 PRN until discontinu ed starting 11/10/2023 End: 09-21-2024 Glutamic acid decarboxylase (Sendout) [facility] Work Phone: Comment on above: Once (Lab) for 1 Occ urrences starting 09/21/2024 until 09/21/2024 End: 09-21-2024 Insulin antibody (Sendout) [facility] Comment on above: Once (Lab) for 1 Occ urrences starting 09/21/2024 until 09/21/2024 End: 09-21-2024 Islet Cell Antibody Screen with Reflex to Titer [facility] Comment on above: Once (Lab) for 1 Occ urrences starting 09/21/2024 until 09/21/2024 Microscopic examination of blood, culture [facility] POC GLUCOSE [facility] Comment on above: at 07,11,16, 22 unti l discontinued starting 10/16/2020 at 00,04,08 etc unti l discontinued starting 10/16/2020 PRN until discontinu ed starting 10/16/2020 End: 01-26-2025 Urine Hold Cup Urine Hold Cup Lab Timed Once for 1 Occurrences starting 01/26/2025 until 01/26/2025 [facility] Comment on above: Once for 1 Occurrenc es starting 01/26/2025 until 01/26/2025 End: 09-21-2024 Zinc Transporter 8 Antibody [facility] Comment on above: Once (Lab) for 1 Occ urrences starting 09/21/2024 until 09/21/2024 Immunizations Immunization Date Immunization Notes Care Provider [facility] 09-12-2023 HEMOGLOBIN A1C Nader Navarro MD Work Phone: [facility] 01-11-2023 HEMOGLOBIN A1C Nader Navarro MD Work Phone: [facility] [employer] 06-29-2022 Influenza, seasonal vaccine, quadrivalent, adjuvanted, .5mL dose, preservative free Nader Navarro MD Work Phone: [facility] 06-29-2022 influenza virus vacc ine, unspecified formulation Nader Navarro MD [facility] Phone[facility] [employer] 12-29-2021 HEMOGLOBIN A1C Estiven Broussard PM Work Phone: [facility] 06-09-2021 flu Vaccine, Fluad Quadrivalent, 0.5ml PFS/SDV Nader Navarro MD Work Phone: [facility] [employer] 06-09-2021 influenza virus vacc ine, unspecified formulation Estiven Mcfadden DPM Work Phone: [facility] [employer] 06-07-2021 HEMOGLOBIN A1C Nader Navarro MD Work Phone: [facility] [employer] 02-09-2021 HEMOGLOBIN A1C Nader Navarro MD Work Phone: [facility] 06-27-2020 [facility] HEMOGLOBIN A1C Nader Navarro [facility] 06-30-2017 tetanus and diphther ia toxoids, adsorbed, preservative free, for adult use (2 Lf of tetanus toxoid and 2 Lf of diphtheria toxoid) Nader Navarro [facility] Payers Date Payer Category Payer Self-pay 2024 Medicare supplementa l policy (as second payer) [employer] [id number] 2004 Medicare [id number]. [id number] 2004 Medicare [id number]. 1.13.129. 2.7.3.073937.315 2004 Medicare [id number] 2001 Unknown [id number]. 1.13.129. 2.7.3.215326.315 2001 Unknown [id number] Unknown [id number] 1.2.840.711869.1.13.129. 2.7.3.521371.315 Unknown [id number] 2.16.840.1.033777.3.579. 2.246 Unknown [id number] 2.16.840.1.699780.3.579. 2.246 Unknown [id number] 2.16.840.1.692321.3.579. 2.246 Unknown [id number] 2.16.840.1.790479.3.579. 2.246 Unknown [id number] 2.16.840.1.559085.3.579. 2.246 Unknown [id number] 2.16.840.1.914940.3.579. 2.246 Unknown [id number] 2.16.840.1.319405.3.579. 2.246 Unknown [id number] 2.16.840.1.008404.3.579. 2.246 Unknown [id number] 2.16.840.1.058842.3.579. 2.246 Unknown [id number] 2.16840.1.796255.3.579. 2.246 Unknown [id number] 2.16.840.1.080445.3.579. 2.246 Unknown [id number] 2.840.1.016473.3.579. 2.246 Unknown [id number] 2.840.1.064012.3.579. 2.246 Unknown [id number] 2.840.1.837564.3.579. 2.246 Unknown [id number] 2.840.1.269014.3.579. 2.246 Unknown [id number] 2.840.1.295955.3.579. 2.246 Unknown [id number] 2.840.1.066414.3.579. 2.246 Unknown [id number] 2.840.1.700273.3.579. 2.246 Unknown [id number] 2.840.1.974557.3.579. 2.246 Unknown [id number] 2.840.1.965594.3.579. 2.246 Unknown [id number] 2.840.1.285932.3.579. 2.246 Unknown [id number] 2.840.1.546044.3.579. 2.246 Unknown [id number] 2.16.840.1.777298.3.579. 2.246 Unknown [id number] 2.16.840.1.457010.3.579. 2.246 Unknown [id number] 2.840.1.576909.3.579. 2.246 Unknown [id number] 2.16.840.1.489340.3.579. 2.246 Unknown [id number] 2.16.840.1.494771.3.579. 2.246 Unknown [id number] 2.16.840.1.258874.3.579. 2.246 Unknown [id number] 2.16.840.1.724228.3.579. 2.246 Unknown [id number] 2.16.840.1.049648.3.579. 2.246 Unknown [id number] 2.16.840.1.766829.3.579. 2.246 Unknown [id number] 2.16.840.1.268142.3.579. 2.246 Unknown [id number] 2.16.840.1.216724.3.579. 2.246 Unknown [id number] 2.16.840.1.752032.3.579. 2.246 Unknown [id number] 2.16.840.1.406263.3.579. 2.246 Unknown [id number] 2.16.840.1.564450.3.579. 2.246 Social History Date Type Detail Facility Start: 12-31-2019 End: 09-18-2024 Tobacco smoking status [facility] sm[facility] Start: 08-12-1957 End: 08-12-1964 History of tobacco use Current smoker [facility] Start: 08-12-1957 End: 08-12-1964 History of tobacco use Cigarette Smoker [facility] Start: 12-31-2019 End: 03-20-2025 Cigarettes smoked current (pack per day) - Reported [facility] Start: 12-31-2019 End: 09-18-2024 Tobacco use and exposure Never used [facility] Start: 12-31-2019 End: 03-20-2025 Alcohol intake Current drinker of alcohol (finding) [facility] Start: 05-15-2019 History SDOH Alcohol Frequency 2 [facility] Start: 05-15-2019 History SDOH Alcohol Std Drinks 1 [facility] Start: 1940 Sex Assigned At Not on file [facility] Start: 09-11-2021 End: 02-01-2022 Exposure to SARS-CoV-2 (event) Not sure [facility] Start: 10-15-2020 Alcohol Comment monthly [facility] Tobacco smoking status NHNASRIN abbotto smoking consumption unknown [facility] Start: 05-15-2019 End: 03-20-2025 Alcohol Use Disorder Identification Test - Consumption [AUDIT-C] [facility] How often to you hav e a drink containing alcohol? Monthly or less [facility] How many standard dr inks containing alcohol do you have on a typical day? 1 or 2 [facility] Frequency of Binge Drinking Not on file [facility] Has the [employer], [place], or water [employer] threatened to shut off services in your home in past 12Mo No [facility] Do you belong to any clubs or organizations such as restorationism groups, unions, fraternal or athletic groups, or school groups? Yes [facility] Are you now , , , , never or living with a partner? [facility] How often do you hav e 6 or more drinks on 1 occasion? Never [facility] Do you feel stress - tense, restless, nervous, or anxious, or unable to sleep at night because your mind is troubled all the time - these days [OSQ] Only a little [facility] (I/We) worried wheth er (my/our) food would run out before (I/we) got money to buy more. Never true [facility] Start: 11-10-2023 Alcohol Comment less than monthly [facility] Start: 09-17-2024 Sex Female (finding) [facility] Start: 09-18-2024 End: 01-12-2025 Alcoholic beverage intake Ex-drinker (finding) [facility] How often to you hav e a drink containing alcohol? 2-4 times a month [facility] Start: 01-25-2025 Alcohol Comment drinks bee occasiona y [facility] Do you feel stress - tense, restless, nervous, or anxious, or unable to sleep at night because your mind is troubled all the time - these days [OSQ] Not at all [facility] Start: 03-20-2025 Alcohol Comment drinks beer occasion ally [facility] Start: 03-20-2025 Gender identity Identifies as female gender (finding) [facility] Start: 03-20-2025 Sexual orientation Heterosexual (xiao wilson) [facility] Medical Equipment Procedure Code Equipment Code Equipment Origin al Text Equipment Identifier Dates [id number] Start: 01-15-2020 End: 09-17-2025 by Miscellaneous route Qd to bid [id number] Start: 01-15-2020 Qd to bid; dispe nse brand insurance will cover [id number] Start: 02-14-2021 Qd to bid; dispe nse brand insurance will cover [id number] Start: 01-02-2022 by Miscellaneous route Qd to bid [id number] Start: 01-02-2022 Qd to bid; dispe nse brand insurance will cover [id number] Start: 01-25-2023 Check glucose x3 daily [id number] art: 09-23-2024 Use to inject 1- 4 times daily as directed. [id number] Start: 09-23-2024 End: 09-23-2024 Use as instructed [id number] Start: 09-17-2024 End: 09-17-2025 Nail Troch Ante 10mm 44cm Lt - [id number] Start: 03-21-2025 Kit Scr 100mm 4. 5mm Intertan - [id number] Start: 03-21-2025 Screw Bn 5mm 47. 5mm Trgn Fem - [id number] Start: 03-21-2025 Goals Date Patient Goal Desired Activity /State Personal health goal Personal health goal Functional Status Date Assessment Result Facility 03-20-2025 Total score [AUDIT-C] 1 03/20/20 8:15 PM EDT Arelis Mueller RN [facility] 02-23-2025 Patient Health Quest ionnaire 2 item (PHQ-2) [Reported] [facility] 01-25-2025 Total score [AUDIT-C] 2 01/26/20 10:41 PM EDT Celine Reyna RN [facility] Clinical Notes 01-18-2021 to 04-14-2025 Telephone Encounter - Tiarra Gross RN - 04/14/2025 9:13 PM EDTTelephone Encounter - Tiarra Gross RN - 04/14/2025 9:13 PM EDTBecho Hallman MD - 03/24/2025 4:35 PM EDTProcedure Summary Note Date & Type Note Facility 04-14-2025 Telephone encounter Note S: Patient's son spoke with [facility] nurse regarding appointment cancellation B: Onset of symptoms/concern n/a A: Requesting to reschedule appointment for 04/15 at 1020, patient unable to leave facility for appointment. R: Appointment cancelled in ECW. Advised patient's son to call during office hours to reschedule appointment. Patient's son voiced understanding. No further needs at this time. Reason for Disposition [1] Other NON-URGENT information for PCP AND [2] does not require PCP response Protocols used: PCP Call - No [id number] [facility] 04-14-2025 Miscellaneous Notes S: Patient's son spoke with [facility] nurse regarding appointment cancellation B: Onset of symptoms/concern n/a A: Requesting to reschedule appointment for 04/15 at 1020, patient unable to leave facility for appointment. R: Appointment cancelled in ECW. Advised patient's son to call during office hours to reschedule appointment. Patient's son voiced understanding. No further needs at this time. Reason for Disposition [1] Other NON-URGENT information for PCP AND [2] does not require PCP response Protocols used: PCP Call - No [id number] documented in this encounter [facility] 03-24-2025 History of Presen t illness Narrative Cardiology Consults Plan of Care Asked for evaluation of tachycardia. Afib rates 100s-130s. Prior recommendations to titrate beta roxi. Adjusted beta roxi to metoprolol succinate 50 mg BID. Will follow up tele tomorrow. Orlin Hallman MD Fellow, Cardiovascular Disease, PGY-6 Images from the original note were not included. PHYSICAL THERAPY [facility] Treatment Note Name/MRN: Hanna Nelson ([id number]) Date of : 1940 Age: 84 y.o. Room/Bed: [facility]36/6136 A Discharge Recommendation: [facility] Facility Equipment Needed: No Prior Level of Function Prior Level of ADL Function: Independent Prior Level of Mobility: Independent; Device: Front wheeled walker Prior Level of Transfers: Independent Assessment Patient with limited participation in PT today. She is somewhat self limiting but also in pain. RN administered pain medication but patient still reluctant to participate. Completed bed exercises with mod assist and max encouragement. Max assist to dependent for rolling in bed and scooting. Recommend SNF at discharge. Subjective Patient in bed. Agreeable to PT initially. When bed sheet removed, patient found to be soaked in urine. Called for assist with bed linen/pad change and nursing assist with hygiene during PT mobility with patient in bed. Patient required increased encouragement to participate and get cleaned from urine. Pain: 0-10 pain scale: 10/10 Location: L hip Medical Precautions: No active isolations Proper PPE donned/doffed in accordance with facility standards. Fall Risk: Proctor Fall Risk Score: 60 (Low Risk) Proctor Fall Risk Score: 60 (High Risk) Precautions/Restrictions: Left LE Weight Bearing: Weight Bearing As Tolerated Lines/Drains/Airways: PIV, purewick Overall Cognitive Status: Exceptions - Arousal/alertness: appropriate responses to stimuli - Following commands: follows one step commands with repetition - Safety judgement: poor - Problem solving: assistance required to correct errors made - Initiation: requires cues for all - Sequencing: requires cues for some Overall Orientation Status: Oriented to Person Family/Caregiver Present: none Objective Bed Mobility Supine to sit: Patient refuses to attempt. Yells out with attempts to initiate. Rolling to right: Max Assist, x2 Person Assist, completed 2 reps Rolling to left: Max Assist, x2 Person Assist, completed 2 reps Scooting: Dependent, x2 Person Assist Use of bed rail(s) Patient required 25+ minutes to complete mobility while nursing staff completing pericare and bed linen/pad change. She required constant encouragement and repeatedly stated she didn't need to be cleaned up despite being soaked in urine. Exercises Exercises Quad Sets: x10 reps B LE supine Heelslides: x10 reps B LE, L AAROM (limited ROM), R AROM Gluteal Sets: x10 reps B LE supine Hip Abduction: x10 reps B LE, L AAROM (limited ROM), R AROM Ankle Pumps: x10 reps B LE supine Plan Continue acute PT per plan of care. Safety/Education Safety Safety Devices in place: call light within reach, left in bed, bed alarm in place, and nurse notified Restraints: No Education Education Given To: patient Education Provided: Home Exercise Program Education Method: Verbal and Demonstration Barriers to Learning: None Education Outcome: Continued Education Needed Outcome Measures AM-PAC AM-PAC Inpatient Mobility Raw Score (No Stairs) : 6 JH-HLM JH-HLM Score: Bed activity Goals Patient Stated Goal: to move but to not be in so much pain Encounter Problems Encounter Problems (Active) Exercise Improve left hip strength to 3+/5 (Not Progressing) Start: 03/22/25 Expected End: 04/07/25 Mobility Patient will ambulate 75 feet with SBA and rolling walker in order to improve safety and independence with mobility. (Not Addressed) Start: 03/22/25 Expected End: 04/07/25 Transfers Patient will perform bed mobility with min assist in order to improve independence and prepare for out of bed mobility. (Not Progressing) Start: 03/22/25 Expected End: 04/07/25 Patient will complete functional transfer with rolling walker with SBA in order to prepare for ambulation. (Not Addressed) Start: 03/22/25 Expected End: 04/07/25 Therapy Time Individual Co-treatment Time In 1329 Time Out 1414 Minutes 45 Timed Code Treatment Minutes: 25 Minutes (TP, FA) Variance: 20 Reason: (pain meds, encouragement to participate) Elda Miranda PT Hospitalist Progress Note Subjective: Admit Date: 03/20/2025 PCP: Dorothy Medrano Room#: H-[id number]/H-[id number] A Chief Complaint Patient presents with Fall Hip Pain Left hip pain Brief Hospital course: Per previous providers note: Patient is an 84-year-old female with past medical history of atrial fibrillation, type 2 diabetes, hyperlipidemia, hypertension, hypothyroidism, CKD stage III, peripheral neuropathy, diabetic foot ulcer, who was last seen in the hospital from 03/12/2025 until 03/15/2025 secondary to A-fib with RVR, NAYELY, NAGMA and hyperkalemia. Patient presented to the hospital on 03/20/2025 after falling last night. She lives alone and was unable to get up. She laid on the floor all night until home health nurse found her (being followed for the wound). She states it was a trip and fall type incident without any syncope. Did not hit her head. No loss of consciousness but she is unable Jalil Krystal much surrounding the event. She remains on Eliquis for her atrial fibrillation. She states that she can feel her atrial fibrillation (she does have palpitations) however she cannot remember having palpitations prior to the event. She has no current palpitations or chest pain. No new dyspnea or cough. No GI/ symptoms reported. While in the emergency department, she obtained a nerve block for pain control. Her vital signs waxed and waned. Heart rate ranged between (61-115). Blood pressure stable. Saturating well on room air. BMP revealed hyperchloremia, metabolic acidosis (bicarb 16), creatinine of 1.7 (NAYELY, baseline creatinine around 1). Glucose found to be 350. Anion gap 15. CK2 53. WBC count 14.1. Hemoglobin 10.3 (normally about 11) she does have a left shift. A1c 6.8. Urinalysis negative for obvious infection. - Chest x-ray personally reviewed and without acute abnormality - X-ray of the femur (left) showed degenerative joint disease - More proximally, x-ray of the left hip showed a acute, moderately comminuted subtrochanteric fracture of the left proximal femur with possible slight intertrochanteric component with shortening of the distal fracture fragment - EKG personally reviewed showing A-fib with RVR - X-ray of the right tib-fib showed no evidence of fracture Patient was started on LR for hydration. Metoprolol for A-fib. Patient was seen by Ortho who recommends surgical repair of hip on 03/21/2025. *Last TTE completed 03/15/2025 showing an EF of 57%, normal RV function. Mild to moderate global valvular disease" Cardiology seen the patient, recommendations noted above, continue to have elevated heart rate, reached to cardiology who increased metoprolol to 50 mg twice daily Geriatrics seen the patient, recommendations noted PT/OT recommends SNF Discussed with antibiotic stewardship team who recommends to DC vancomycin Patient will be discharged to SNF today in stable condition Interval History: 03/24/2025-No overnight issues. Patient is seen and examined She is comfortably resting in her bed without in any acute distress She reports no new acute complaints Son is at bedside Vitals reviewed, stable Labs reviewed, creatinine 1.32, hemoglobin 8.4 Case and plan discussed with patient and bedside nurse. All questions answered. Past Medical History: Medical History[1] Adult diet Regular; 4 carb choices (60 gm/meal) 24HR INTAKE/OUTPUT: No intake or output data in the 24 hours ending 03/24/25 1150 LABS: CBC: Recent Labs 03/22/25 0116 03/22/25 0910 03/23/25 0146 03/24/25 0057 WBC 9.1 -- 8.8 9.7 RBC 2.25* -- 2.84* 2.67* HGB 6.7* 8.2* 8.4* 7.9* HCT 20.6* 25.6* 26.1* 24.2* MCV 91.6 -- 91.9 90.6 RDW 16.0* -- 16.0* 15.6* PLT 157 -- 180 221 BMP: Recent Labs 03/22/25 0116 03/23/25 0146 03/24/25 0057 NA 133* 139 138 K 4.5 4.5 4.4 CL 105 108* 106 CO2 19* 22* 24 BUN 37* 28* 26* CREATININE 1.45* 1.32* 1.06 GLUCOSE 223* 206* 187* CALCIUM 8.0* 8.6* 8.7* ANIONGAP 9 9 8 LIVER PROFILE: Recent Labs 03/21/25 1745 03/22/25 0116 AST 22 28 ALT 12 9 BILITOT 1.2* 0.6 ALKPHOS 37* 36* PROT 6.4 5.8* PT/INR: No results for input(s): "PROTIME", "INR" in the last 72 hours. CARDIAC ENZYMES: No results for input(s): "TROPONINI" in the last 72 hours. Procalcitonin: Lab Results Component Value Date PROCAL 0.23 (H) 03/21/2025 COVID-19 PCR: No results for input(s): "COVID19" in the last 72 hours. Objective: Vitals: BP 152/95 (BP Location: Left arm, Patient Position: Sitting) Pulse 114 Temp (!) 35.8 C (96.5 F) (Temporal) Resp 16 Ht 5' 10.75" (1.797 m) Wt 200 lb (90.7 kg) SpO2 97% BMI 28.09 kg/m Pulse Ox: SpO2 Av % Min: 94 % Max: 98 % Supplemental O2: Physical Exam HENT: Head: Normocephalic and atraumatic. Mouth/Throat: Mouth: Mucous membranes are moist. Cardiovascular: Rate and Rhythm: Tachycardia present. Rhythm irregular. Pulmonary: Effort: Pulmonary effort is normal. Abdominal: Palpations: Abdomen is soft. Musculoskeletal: Comments: L hip/thigh dressings clean, dry, intact R foot diabetic ulcer, mild surroudning erythema, TTP Skin: General: Skin is warm and dry. Neurological: Mental Status: She is alert. Psychiatric: Mood and Affect: Mood normal. Medications: Scheduled PRN Scheduled Meds[2] PRN Meds[3] Continuous Continuous Meds[4] Assessment Data: (CAT1) Reviewed 2 notes from different specialty or health system (each=1). (CAT1) Reviewed 3 or more labs/studies ordered by another provider not previously counted (each=1, panels count as 1). (CAT1) Ordered 3 or more new labs and/or studies (each=1, panels count as 1). (LOW: 2x CAT1 or independent historian MOD: 3x CAT1 or 1x CAT3 EXTENSIVE: 3x CAT1 and 1x CAT3) Acute, acute on chronic, unstable/uncontrolled chronic problems/diagnoses: Comminuted subtrochanteric fracture of the left proximal femur s/p ORIF with intramedullary nail insertion 03/21 Mechanical fall - geriatrics consulted, appreciated recs NAYELY superimposed on CKD, unclear baseline Cr - improved Metabolic acidosis Traumatic rhabdomyolysis Hypotension of unknown etiology, technically meeting septic shock criteria. However likely multifactorial: anemia + afib rvr. Bps sustained with rate control. Acute anemia, no evident bleeding apart from expected perioperative losses. Pt incremented appropriately s/p 1u prbc 03/21, required additional unit 03/22. Negative hemolysis workup Uncontrolled type 2 diabetes w/peripheral neuropathy and hyperglycemic R diabetic foot ulcer. Prev cultures 01/26/25 bacteroides fragilis + MSSA. Ordered empiric vanc + zosyn, follow up wound cx Afib RVR (on eliquis); improved Lactic acid elevation, resolved Stable chronic problems affecting care, new non-acute diagnoses: Hyperlipidemia Hx Hypertension Hypothyroidism T2DM with hyperglycemia Medical History[5] Plan As a result of the above findings & factors, the following mgmt was pursued: - Ortho following - Hgb 6.8 on 03/22, received 1u prbc and incremented to 8.0. - Reticulocyte index 0.9 c/w hypoproliferative marrow response. Ordered ferritin, B12, folate. If no correctable lab abnormalities would consult heme - Lantus 26 u nightly + med dose SSI - Vancomycin DC'd as per antibiotic stewardship team recommendations - Cont lopressor q8h -Eliquis resumed - am labs, replace lytes prn - PT/OT/CM/SW - delirium precautions: increase activity, limit nighttime disturbances, and avoid anticholinergic meds, benzos, etc - DVT prophylaxis: encourage ambulation and already anticoagulated Complexity: Acute illness or injury posing a threat to life or body function (HIGH). Risk: Advance Directive: Full Code Anticipated Discharge - Date -today - Location - Skilled Facility - Pending the following -DC today Total time spent (which include face to face and non face to face encounters) : More than 31 minutes Extended Emergency Contact Information Primary Emergency Contact: Hi Nelson Relation: Son Preferred language: Burmese Metal Bumper needed? No Secondary Emergency Contact: Melba Black [facility] [place] [facility] Relation: Daughter Brice Bellojudithlisa MD Svetlana Division of Hospital Medicine Inpatient Medical Services/[facility] [1] Past Medical History: Diagnosis Date Arthritis Atrial fibrillation (HCC) Diabetes mellitus (HCC) Hyperlipidemia Hypertension Hypothyroidism Neuropathy [2] acetaminophen, 1,000 mg, Oral, TID apixaban, 5 mg, Oral, BID atorvastatin, 20 mg, Oral, Nightly cyanocobalamin, 1,000 mcg, Oral, Daily gabapentin, 300 mg, Oral, BID insulin glargine, 26 Units, SubCUTAneous, Nightly insulin lispro, 0-12 Units, SubCUTAneous, TID WC And insulin lispro, 0-12 Units, SubCUTAneous, Nightly Lactobacillus, 4 tablet, Oral, Daily levothyroxine, 25 mcg, Oral, qAM AC metoprolol tartrate, 25 mg, Oral, q8h piperacillin-tazobactam, 4,500 mg, IntraVENous, q6h trospium, 20 mg, Oral, qAM AC [3] PRN medications: dextrose, dextrose, glucagon (rDNA), glucose, HYDROmorphone OR [DISCONTINUED] HYDROmorphone, melatonin, metoprolol, naloxone, ondansetron ODT OR ondansetron, oxyCODONE OR oxyCODONE, polyethylene glycol (PEG) 3350, sodium chloride [4] [5] Past Medical History: Diagnosis Date Arthritis Atrial fibrillation (HCC) Diabetes mellitus (HCC) Hyperlipidemia Hypertension Hypothyroidism Neuropathy [facility] Geriatric Medicine Inpatient Consult Service Admission Date: 03/20/2025 Assessment Principal Problem: Closed fracture of left hip, initial encounter ([facility]) Plan Fall -Multiple risk factors including decreased hearing, decreased vision, cognitive deficits, diabetes, acute illness, and possible medication side effect -Continue PT/OT as able while inpatient -Vitamin D 45 on 03/23/25 -Check orthostatic vital signs as able -Medications with associated fall risk include: atenolol, gabapentin, insulin Acute pain due to trauma --Pain today to bilateral hips L>R --Agree with scheduled acetaminophen 1g TID with PRN oxycodone (2.5-5mg) PRN for breakthrough Lab Results Component Value Date ALT 9 03/22/2025 AST 28 03/22/2025 ALKPHOS 36 (L) 03/22/2025 BILITOT 0.6 03/22/2025 --Continue PRN Dilaudid IV-wean as able -Optimize nonpharmacologic pain treatment modalities. -consider scheduling bowel regimen if using narcotics consistently Declining functional status --Related to fall, fracture, DM, recent hospitalization --Continue PT/OT as able while inpatient --Anticipate d/c to SNF for ongoing daily PT/OT. Per previous conversation with son, plan is [facility] Cognitive impairment --Followed by [facility]. --Concern for Alzheimer's dementia --Son noted cognitive issues started about a year ago, worsening with time. --Lives home alone with strong support from her children and has private home health aids 2 hours a day/6 days a week --Per son, in process of moving patient to assisted living. --Follow up with [facility] as able-discussed with Hi-patient's son. Information added to discharge follow up instructions. At risk for delirium --Appears at baseline, alert and oriented to person and place. --Risk factors: pain, advanced age, acute illness, high risk medications, and baseline cognitive deficits --Encourage PO intake, time up in chair, family visits, supervised ambulation, and sleep hygiene --If agitated, assess for and consider treating for pain --QTc= 462 on 03/21/25 --No antipsychotic unless patient is danger to self/others/treatment --Continue PRN melatonin at HS-has not used --Monitor for constipation/urinary retention - last BM unknown. --Possible medication contributions: PRN oxycodone-used last 03/24 PRN Dilaudid-used last 03/23 Constipation -last BM unknown -continue PRN Miralax-discussed with nurse today to offer patient a dose Vitamin B12 deficiency Lab Results Component Value Date [id number] 231 03/22/2025 --Start B12 1000mcg PO daily Follow-up: will follow with you Subjective Chief Complaint: Fall Geriatrics consulted for mechanical fall elderly c/b hip fx" HPI- The patient is known to me. 84 y.o. year-old female admitted to acute care from home for falling. She lives alone and was unable to get up. She laid on the floor all night until home health nurse found her (being followed for the wound). She states it was a trip and fall type incident without any syncope. Diagnosed with comminuted subtrochanteric fracture of the left proximal femur and s/p L CMN on 03/21 Per initial geriatric consult, patient lives home alone, has home health aids 2 hours a day/6 days a week. Children very supportive. Uses a walker. Children administer her insulin and other medications and also does shopping, cleaning, cooking and bills. Patient has not driven since May, family had driving concerns for patient. Short term memory is not very good. Family in process of looking to move patient to an assisted living. Interval History: Remains on telemetry. Patient today reports she slept okay last night. Reports she has pain to her bilateral hips, L > R. Reports her appetite has been okay. States she slept well last night. Discussed with nurse, patient has been appears to be down. No agitation or behaviors noted. Progress notes reviewed: -per CM, referral placed for [facility] -Vancomycin discontinued per antibiotic stewardship recommendations PRN meds in past 24 hours: Dilaudid 0.25mg times 1 on 03/23 Metoprolol IV times 1 on 03/23 Oxycodone 5mg times 3 on 03/23, times 1 on 03/24 Labs: 03/24: Sodium 138, potassium 4.4, BUN 26, Creatinine 1.06 03/24: WBC 9.7, Hgb 7.9, platelets 221 03/23: Vitamin D 45 03/22: Vitamin F01=617 03/23: Seen by OT, recommend SNF. 03/23: Seen by PT. Transfers/bed mobility max assist times 2. unable. Recommending short term SNF for rehab. Review of Systems Constitutional: Positive for activity change. Negative for chills, diaphoresis, fatigue and fever. HENT: Negative for congestion and hearing loss. Eyes: Positive for visual disturbance (reading glasses). Respiratory: Negative for cough and shortness of breath. Cardiovascular: Negative for chest pain, palpitations and leg swelling. Gastrointestinal: Negative for abdominal distention, abdominal pain, constipation, diarrhea, nausea and vomiting. Genitourinary: Negative for difficulty urinating and dysuria. Musculoskeletal: Positive for arthralgias (hips, L >R) and gait problem. Negative for back pain and joint swelling. Skin: Positive for wound (surgical). Neurological: Positive for weakness. Negative for dizziness, light-headedness and headaches. Neuropathy pain to lower legs and feet Psychiatric/Behavioral: Positive for confusion (short term memory loss). Negative for agitation, decreased concentration, dysphoric mood and sleep disturbance. Objective BP 152/95 (BP Location: Left arm, Patient Position: Sitting) Pulse 114 Temp (!) 35.8 C (96.5 F) (Temporal) Resp 16 Ht 5' 10.75" (1.797 m) Wt 200 lb (90.7 kg) SpO2 97% BMI 28.09 kg/m No intake or output data in the 24 hours ending 03/24/25 1031 Wt Readings from Last 3 Encounters: 03/20/25 200 lb (90.7 kg) 03/15/25 200 lb (90.7 kg) 02/23/25 200 lb (90.7 kg) Current Medications[1] Physical Exam Constitutional: General: She is not in acute distress. Appearance: She is not ill-appearing or toxic-appearing. Comments: Pleasant female sitting up in bed, on RA, NAD. HENT: Right Ear: External ear normal. Left Ear: External ear normal. Nose: Nose normal. No congestion. Eyes: General: Right eye: No discharge. Left eye: No discharge. Conjunctiva/sclera: Conjunctivae normal. Cardiovascular: Rate and Rhythm: Normal rate. Rhythm irregular. Pulmonary: Effort: Pulmonary effort is normal. No respiratory distress. Breath sounds: Normal breath sounds. No wheezing or rales. Comments: Anteriorly ausculated Abdominal: General: Bowel sounds are normal. There is no distension. Palpations: Abdomen is soft. Tenderness: There is no abdominal tenderness. There is no guarding. Musculoskeletal: Right lower leg: No edema. Left lower leg: Edema (left hip wth edema, dressing dry & intact) present. Comments: pneumonic cuffs to BLE Skin: General: Skin is warm and dry. Neurological: Mental Status: She is alert. She is disoriented. Comments: Alert and oriented to person, place. Does not know the date or why she is at the hospital Psychiatric: Mood and Affect: Mood normal. Behavior: Behavior normal. Labs and Imaging: Recent Results (from the past 24 hours) POCT glucose meter Collection Time: 03/23/25 11:57 AM Result Value Ref Range Glucose 299 (H) 70 - 100 mg/dL POCT glucose meter Collection Time: 03/23/25 4:57 PM Result Value Ref Range Glucose 271 (H) 70 - 100 mg/dL POCT glucose meter Collection Time: 03/23/25 8:59 PM Result Value Ref Range Glucose 276 (H) 70 - 100 mg/dL CBC auto differential Collection Time: 03/24/25 12:57 AM Result Value Ref Range Auto WBC 9.7 3.6 - 10.7 10*3/uL RBC 2.67 (L) 3.80 - 5.20 10*6/uL Hemoglobin 7.9 (L) 11.7 - 16.0 g/dL Hematocrit 24.2 (L) 35.0 - 47.0 % MCV 90.6 77.0 - 99.0 fL MCH 29.6 26.0 - 34.0 pg MCHC 32.6 30.5 - 36.0 % RDW 15.6 (H) 11.5 - 15.0 % Platelets 221 140 - 440 10*3/uL MPV 11.2 9.0 - 12.7 fL nRBC 0.0 0.0 - 2.0 /100 WBCs Neutrophils Relative 66.3 38.0 - 82.0 % Lymphocytes Relative 19.1 15.0 - 45.0 % Monocytes Relative 9.7 5.0 - 13.0 % Eosinophils Relative 4.0 0.0 - 6.0 % Basophils Relative 0.4 0.0 - 2.0 % Immature Grans % 0.5 0.0 - 2.0 % Neutrophils Absolute 6.4 1.8 - 7.5 10*3/uL Lymphocytes Absolute 1.9 1.0 - 4.3 10*3/uL Monocytes Absolute 0.9 0.0 - 0.9 10*3/uL Eosinophils Absolute 0.4 0.0 - 0.5 10*3/uL Basophils Absolute 0.0 0.0 - 0.2 10*3/uL Immature Grans Absolute 0.1 (H) <0.1 10*3/uL Basic metabolic panel Collection Time: 03/24/25 12:57 AM Result Value Ref Range SODIUM 138 136 - 145 mmol/L POTASSIUM 4.4 3.5 - 5.1 mmol/L CHLORIDE 106 98 - 107 mmol/L CARBON DIOXIDE 24 23 - 31 mmol/L UREA NITROGEN 26 (H) 9 - 23 mg/dL CREATININE 1.06 0.57 - 1.11 mg/dL GLUCOSE 187 (H) 82 - 115 mg/dL CALCIUM 8.7 (L) 8.8 - 10.0 mg/dL ANION GAP 8 3 - 13 mmol/L eGFR 51.6 (L) >60.0 mL/min/1.73m*2 POCT glucose meter Collection Time: 03/24/25 8:17 AM Result Value Ref Range Glucose 187 (H) 70 - 100 mg/dL Lab Results Component Value Date TSH 1.71 03/14/2025 Lab Results Component Value Date [id number] 231 03/22/2025 Lab Results Component Value Date [id number] 45 03/23/2025 Reviewed: allergies, previous encounters, active problem lists, medications, and labs [1] Current Facility-Administered Medications: acetaminophen (Tylenol) tablet 1,000 mg, 1,000 mg, Oral, TID, Raffi Paulino MD, 1,000 mg at 03/24/2558 apixaban (Eliquis) tablet 5 mg, 5 mg, Oral, BID, Brice Mota MD, 5 mg at 03/24/25857 atorvastatin (Lipitor) tablet 20 mg, 20 mg, Oral, Nightly, Janet Rosemarie, DO, 20 mg at 03/23/252030 dextrose 5 % infusion, 100 mL/hr, IntraVENous, PRN, Janet Rosemarie, DO dextrose 50 % solution 12.5 g, 12.5 g, IntraVENous, PRN, Janet Rosemarie, DO gabapentin (Neurontin) capsule 300 mg, 300 mg, Oral, BID, Janet Rosemarie, DO, 300 mg at 03/24/2558 glucagon (human recombinant) injection 1 mg, 1 mg, IntraMUSCular, PRN, Janet Rosemarie, DO glucose oral gel 15 g, 15 g, Oral, PRN, Janet Rosemarie, DO HYDROmorphone (Dilaudid) injection 0.25 mg, 0.25 mg, IntraVENous, q4h PRN, 0.25 mg at 03/23/25 0919 OR [DISCONTINUED] HYDROmorphone (Dilaudid) injection 0.5 mg, 0.5 mg, IntraVENous, q4h PRN, Miguel Hui, DO, 0.5 mg at 03/22/25 0707 insulin glargine (Lantus) injection 26 Units, 26 Units, SubCUTAneous, Nightly, Janet Houston DO, 26 Units at 03/23/252100 Insulin Lispro (Humalog) injection 0-12 Units, 0-12 Units, SubCUTAneous, TID WC, 2 Units at 03/24/25 0858 AND Insulin Lispro (Humalog) injection 0-12 Units, 0-12 Units, SubCUTAneous, Nightly, Raffi Paulino MD, 6 Units at 03/23/25 210 Lactobacillus 0.05-0.05 MG 4 tablet, 4 tablet, Oral, Daily, Janet Houston, DO, 4 tablet at 03/24/25 0903 levothyroxine (Synthroid, Levoxyl) tablet 25 mcg, 25 mcg, Oral, qAM AC, Janet Houston, DO, 25 mcg at 03/24/25 0525 melatonin tablet 3 mg, 3 mg, Oral, Nightly PRN, Ania Webb, 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 - NUCLEAR PLANT INSTRUMENT TECHNICIAN metoprolol tartrate (Lopressor) injection 5 mg, 5 mg, IntraVENous, q5 min PRN, Raffi Paulino MD, 5 mg at 03/23/25 1010 metoprolol tartrate (Lopressor) tablet 25 mg, 25 mg, Oral, q8h, Raffi Paulino MD, 25 mg at 03/24/25 0858 naloxone (Narcan) injection 0.4 mg, 0.4 mg, IntraVENous, PRN, Miguel Hui, DO ondansetron ODT (Zofran-ODT) disintegrating tablet 4 mg, 4 mg, Oral, q8h PRN OR ondansetron (Zofran) injection 4 mg, 4 mg, IntraVENous, q6h PRN, Janet Houston DO oxyCODONE (Roxicodone) immediate release tablet 2.5 mg, 2.5 mg, Oral, q4h PRN, 2.5 mg at 03/22/25 1728 OR oxyCODONE (Roxicodone) immediate release tablet 5 mg, 5 mg, Oral, q4h PRN, Miguel Hui DO, 5 mg at 03/24/25 0525 piperacillin-tazobactam (Zosyn) 4,500 mg in sodium chloride 0.9 % 100 mL IVPB Mini-Bag Plus, 4,500 mg, IntraVENous, q6h, Raffi Paulino MD, Last Rate: 33.3 mL/hr at 03/24/25 0859, 4,500 mg at 03/24/25 0859 polyethylene glycol (PEG) 3350 (Miralax) packet 17 g, 17 g, Oral, Daily PRN, Miguel Lucero Pentz, DO sodium chloride 0.9 % infusion, 250 mL/hr, IntraVENous, PRN, Sergio Lutz NP trospium (Sanctura) tablet 20 mg, 20 mg, Oral, qAM AC, Janet Houston, DO, 20 mg at 03/24/25 0525 Vancomycin therapy has been discontinued by Brice Mota on 03/24/25. Thank you for the consult. Pharmacy signing off for vancomycin dosing. Norberto Cooper PharmD Date: 03/24/25 Time: 7:35 AM Images from the original note were not included. PHYSICAL THERAPY [facility] Treatment Note Name/MRN: Hanna Nelson ([id number]) Date of : 1940 Age: 84 y.o. [facility] Discharge Recommendation: [facility] Facility Prior Level of Function Prior Level of ADL Function: Independent Prior Level of Mobility: Independent; Device: Front wheeled walker Prior Level of Transfers: Independent Assessment Patient is slowly progressing towards goals, most limited by pain. Patient is self limiting during session, requires consistent encouragement to participate and often yells out in pain with movement. Requires max assist for bed mobility and max assist x 2 for transfers. Able to participate in supine exercises. Currently recommending SNF level therapies at discharge. Subjective Supine upon arrival, agreeable to PT with moderate encouragement. Pain: 0-10 pain scale: 8/10 Location: L hip Medical Precautions: No active isolations Proper PPE donned/doffed in accordance with facility standards. Fall Risk: Proctor Fall Risk Score: 85 (Low Risk) Proctor Fall Risk Score: 85 (High Risk) Precautions/Restrictions: Left LE Weight Bearing: Weight Bearing As Tolerated Lines/Drains/Airways: PIV, aleksanderck Overall Cognitive Status: WFL Overall Orientation Status: Oriented to Person Family/Caregiver Present: child(aguila) Objective Bed Mobility Supine to sit: Max Assist Sit to supine: Max Assist Scooting: Dependent HOB elevated, use of bed rail, cues for sequencing and technique. Increased time and effort to complete. Requires frequent rest breaks while performing due to pain. Transfers/Mobility Sit to stand: Max Assist, x2 Person Assist Stand to sit: Max Assist, x2 Person Assist Cues for UE placement, set up, and assistance for anterior weight shifting for use of momentum. Patient is apprehensive and fearful of all movement often yelling out in pain. Performed x3 from raised EOB. Device(s) used: Front wheeled walker Balance During Session: Posture: fair Sitting - Static: Min Assist Sitting - Dynamic: Mod Assist Standing - Static: Mod Assist, x2 Person Assist Standing - Dynamic: Max Assist, x2 Person Assist Standing tolerance for up to 1 min at FWW with heavy reliance on B UE. Max assist for maintaining COG over JESÚS, cues for maintaining B TKE. Exercises Exercises Quad Sets: x10 reps B LE supine Heelslides: x10 reps B LE, L AAROM, R AROM Gluteal Sets: x10 reps B LE supine Hip Abduction: x10 reps B LE, L AAROM, R AROM Ankle Pumps: x10 reps B LE supine Plan Continue acute PT per plan of care. Safety/Education Safety Safety Devices in place: All fall risk precautions in place, call light within reach, and left in bed Restraints: No Education Transfers, balance, bed mobility, exercises, participation Outcome Measures AM-PAC AM-PAC Inpatient Mobility Raw Score (No Stairs) : 8 JH-HLM JH-HLM Score: Static standing (1 or more minutes) Goals Patient Stated Goal: to move but to not be in so much pain Encounter Problems Encounter Problems (Active) Exercise Improve left hip strength to 3+/5 (Progressing) Start: 03/22/25 Mobility Patient will ambulate 75 feet with SBA and rolling walker in order to improve safety and independence with mobility. (Not Addressed) Start: 03/22/25 Transfers Patient will perform bed mobility with min assist in order to improve independence and prepare for out of bed mobility. (Progressing) Start: 03/22/25 Patient will complete functional transfer with rolling walker with SBA in order to prepare for ambulation. (Progressing) Start: 03/22/25 Therapy Time Individual Co-treatment Time In 1317 Time Out 1358 Minutes 41 Timed Code Treatment Minutes: 31 Minutes (FA, TP) Variance: 10 (pain meds) Radha Montana COMMUNITY SUPPORT SPECIALIST Cosigned by Jennifer Valdez, PT at 03/24/2025 7:13 AM EDT [facility] Geriatric Medicine Inpatient Consult Service Admission Date: 03/20/2025 Assessment Principal Problem: Closed fracture of left hip, initial encounter (HCC) Plan Fall -Multiple risk factors including decreased hearing, decreased vision, cognitive deficits, diabetes, acute illness, and possible medication side effect -Continue PT/OT as able while inpatient -Vitamin D 45 on 03/23/25 -Check orthostatic vital signs as able -Medications with associated fall risk include: atenolol, gabapentin, insulin Acute pain due to trauma --Agree with scheduled acetaminophen 1g TID with PRN oxycodone (2.5-5mg) PRN for breakthrough Lab Results Component Value Date ALT 9 03/22/2025 AST 28 03/22/2025 ALKPHOS 36 (L) 03/22/2025 BILITOT 0.6 03/22/2025 --Continue PRN Dilaudid IV-wean as able -Optimize nonpharmacologic pain treatment modalities. -consider scheduling bowel regimen if using narcotics consistently Declining functional status --Related to fall, fracture, DM, recent hospitalization --Continue PT/OT as able while inpatient --Anticipate d/c to SNF for ongoing daily PT/OT . Per son at bedside, plan is SNF at [facility] Cognitive impairment --Followed by [facility]. --Concern for Alzheimer's dementia --Son noted cognitive issues started about a year ago, worsening with time. --Lives home alone with strong support from her children and has private home health aids 2 hours a day/6 days a week --Per son, in process of moving patient to assisted living. --Follow up with [facility] as able-discussed with Hi-patient's son. Information added to discharge follow up instructions. At risk for delirium --Appears at baseline --Risk factors: pain, advanced age, acute illness, high risk medications, and baseline cognitive deficits --Encourage PO intake, time up in chair, family visits, supervised ambulation, and sleep hygiene --If agitated, assess for and consider treating for pain --QTc= 462 on 03/21/25 --No antipsychotic unless patient is danger to self/others/treatment --Continue PRN melatonin at HS --Monitor for constipation/urinary retention - last BM unknown. Discussed with nurse today to offer patient PRN Miralax --Possible medication contributions: PRN oxycodone-used last 03/23 PRN Dilaudid-used last 03/23 Follow-up: will follow with you Subjective Chief Complaint: Fall Geriatrics consulted for mechanical fall elderly c/b hip fx" HPI- The patient is known to me. 84 y.o. year-old female admitted to acute care from home for falling. She lives alone and was unable to get up. She laid on the floor all night until home health nurse found her (being followed for the wound). She states it was a trip and fall type incident without any syncope. Diagnosed with comminuted subtrochanteric fracture of the left proximal femur and s/p L CMN on 03/21 Per initial geriatric consult, patient lives home alone, has home health aids 2 hours a day/6 days a week. Children very supportive. Uses a walker. Children administer her insulin and other medications and also does shopping, cleaning, cooking and bills. Patient has not driven since May, family had driving concerns for patient. Short term memory is not very good. Family in process of looking to move patient to an assisted living. Interval History: Remains on telemetry. Patient today reports she slept okay last night. Denies any pain. Reports that she has not been out of bed. Reports has not moved her bowels since admission, denies feeling constipated. Reports does not have any difficulty moving her bowels at home SonHi came in during visit, said patient stood with therapy times 3 and was c/o pain to her leg. Discussed with nurse, patient has been cooperative with medications. No agitation or behaviors noted by nursing. Progress notes reviewed: -per ortho, s/p Left CMN on 03/21, WBAT -seen by mortgage processor, recommend fruit punch jamie BID -s/p 1 unit of PRBC PRN meds in past 24 hours: Dilaudid 0.25mg times 1 on 03/23 Dilaudid 0.5mg times 1 on 03/22 Metoprolol IV times 1 on 03/23 Oxycodone 2.5mg times 1 on 03/22 Oxycodone 5mg times 1 on 03/22, times 1 on 03/23 Labs: 03/23: Sodium 139, potassium 4.5, BUN 28, Creatinine 1.32 03/23: WBC 8.8, Hgb 8.4, platelets 180 03/23: Vitamin D 45 03/22: Vitamin N37=370 03/23: Seen by OT, recommend SNF. 03/22: Seen by PT. Transfers unable. Did not ambulate this session. Recommending short term SNF for rehab. Review of Systems Constitutional: Positive for activity change. Negative for chills, diaphoresis, fatigue and fever. HENT: Negative for congestion and hearing loss. Eyes: Positive for visual disturbance (reading glasses). Respiratory: Negative for cough and shortness of breath. Cardiovascular: Negative for chest pain, palpitations and leg swelling. Gastrointestinal: Negative for abdominal distention, abdominal pain, constipation, diarrhea, nausea and vomiting. Genitourinary: Negative for difficulty urinating and dysuria. Musculoskeletal: Positive for arthralgias (leg-per son) and gait problem. Negative for back pain and joint swelling. Skin: Positive for wound (surgical). Neurological: Positive for weakness. Negative for dizziness, light-headedness and headaches. Neuropathy pain to lower legs and feet Psychiatric/Behavioral: Positive for confusion (short term memory loss). Negative for agitation, decreased concentration, dysphoric mood and sleep disturbance. Objective BP 142/94 (BP Location: Left arm, Patient Position: Sitting) Pulse 118 Temp 36.1 C (96.9 F) (Temporal) Resp 16 Ht 5' 10.75" (1.797 m) Wt 200 lb (90.7 kg) SpO2 98% BMI 28.09 kg/m Intake/Output Summary (Last 24 hours) at 03/23/2025 1325 Last data filed at 03/23/2025 0534 Gross per 24 hour Intake 550 ml Output 1900 ml Net -1350 ml Wt Readings from Last 3 Encounters: 03/20/25 200 lb (90.7 kg) 03/15/25 200 lb (90.7 kg) 02/23/25 200 lb (90.7 kg) Current Medications[1] Physical Exam Constitutional: General: She is not in acute distress. Appearance: She is not ill-appearing or toxic-appearing. Comments: Pleasant female sitting up in bed, on RA, NAD. Talkative and engaging. Son came in during visit HENT: Right Ear: External ear normal. Left Ear: External ear normal. Nose: Nose normal. No congestion. Eyes: General: Right eye: No discharge. Left eye: No discharge. Conjunctiva/sclera: Conjunctivae normal. Cardiovascular: Rate and Rhythm: Normal rate. Rhythm irregular. Pulmonary: Effort: Pulmonary effort is normal. No respiratory distress. Breath sounds: Normal breath sounds. No wheezing or rales. Comments: Anteriorly ausculated Abdominal: General: Bowel sounds are normal. There is no distension. Palpations: Abdomen is soft. Tenderness: There is no abdominal tenderness. There is no guarding. Musculoskeletal: Right lower leg: No edema. Left lower leg: Edema (left hip wth edema, dressing dry & intact) present. Comments: pnemonic cuffs to BLE Skin: General: Skin is warm and dry. Neurological: Mental Status: She is alert. She is disoriented. Comments: Poor short term memory, forgets why she is in the hospital. Alert and oriented to person, month and know she is at the hospital. Does not remember the year. Psychiatric: Mood and Affect: Mood normal. Behavior: Behavior normal. Labs and Imaging: Recent Results (from the past 24 hours) POCT glucose meter Collection Time: 03/22/25 4:03 PM Result Value Ref Range Glucose 195 (H) 70 - 100 mg/dL POCT glucose meter Collection Time: 03/22/25 5:19 PM Result Value Ref Range Glucose 191 (H) 70 - 100 mg/dL POCT glucose meter Collection Time: 03/22/25 8:47 PM Result Value Ref Range Glucose 244 (H) 70 - 100 mg/dL CBC auto differential Collection Time: 03/23/25 1:46 AM Result Value Ref Range Auto WBC 8.8 3.6 - 10.7 10*3/uL RBC 2.84 (L) 3.80 - 5.20 10*6/uL Hemoglobin 8.4 (L) 11.7 - 16.0 g/dL Hematocrit 26.1 (L) 35.0 - 47.0 % MCV 91.9 77.0 - 99.0 fL MCH 29.6 26.0 - 34.0 pg MCHC 32.2 30.5 - 36.0 % RDW 16.0 (H) 11.5 - 15.0 % Platelets 180 140 - 440 10*3/uL MPV 11.0 9.0 - 12.7 fL nRBC 0.0 0.0 - 2.0 /100 WBCs Neutrophils Relative 68.0 38.0 - 82.0 % Lymphocytes Relative 17.2 15.0 - 45.0 % Monocytes Relative 10.4 5.0 - 13.0 % Eosinophils Relative 3.2 0.0 - 6.0 % Basophils Relative 0.6 0.0 - 2.0 % Immature Grans % 0.6 0.0 - 2.0 % Neutrophils Absolute 6.0 1.8 - 7.5 10*3/uL Lymphocytes Absolute 1.5 1.0 - 4.3 10*3/uL Monocytes Absolute 0.9 0.0 - 0.9 10*3/uL Eosinophils Absolute 0.3 0.0 - 0.5 10*3/uL Basophils Absolute 0.1 0.0 - 0.2 10*3/uL Immature Grans Absolute 0.1 (H) <0.1 10*3/uL Basic metabolic panel Collection Time: 03/23/25 1:46 AM Result Value Ref Range SODIUM 139 136 - 145 mmol/L POTASSIUM 4.5 3.5 - 5.1 mmol/L CHLORIDE 108 (H) 98 - 107 mmol/L CARBON DIOXIDE 22 (L) 23 - 31 mmol/L UREA NITROGEN 28 (H) 9 - 23 mg/dL CREATININE 1.32 (H) 0.57 - 1.11 mg/dL GLUCOSE 206 (H) 82 - 115 mg/dL CALCIUM 8.6 (L) 8.8 - 10.0 mg/dL ANION GAP 9 3 - 13 mmol/L eGFR 39.6 (L) >60.0 mL/min/1.73m*2 Vancomycin, AUC Timed Dosing Collection Time: 03/23/25 1:46 AM Result Value Ref Range VANCOMYCIN, AUC 17.7 ug/mL Vitamin D Deficiency Screening (Vit D 25) Collection Time: 03/23/25 1:46 AM Result Value Ref Range VIT D 25-OH, TOTAL 45 See comment ng/mL POCT glucose meter Collection Time: 03/23/25 8:27 AM Result Value Ref Range Glucose 217 (H) 70 - 100 mg/dL POCT glucose meter Collection Time: 03/23/25 11:57 AM Result Value Ref Range Glucose 299 (H) 70 - 100 mg/dL Lab Results Component Value Date TSH 1.71 03/14/2025 Lab Results Component Value Date [id number] 231 03/22/2025 Lab Results Component Value Date VITD25 45 03/23/2025 Reviewed: allergies, previous encounters, active problem lists, medications, and labs [1] Current Facility-Administered Medications: acetaminophen (Tylenol) tablet 1,000 mg, 1,000 mg, Oral, TID, Raffi Paulino MD, 1,000 mg at 03/23/2515 apixaban (Eliquis) tablet 5 mg, 5 mg, Oral, BID, Brice Mota MD, 5 mg at 03/23/2514 atorvastatin (Lipitor) tablet 20 mg, 20 mg, Oral, Nightly, Janet Rosemarie, DO, 20 mg at 03/22/252031 dextrose 5 % infusion, 100 mL/hr, IntraVENous, PRN, Janet Rosemarie, DO dextrose 50 % solution 12.5 g, 12.5 g, IntraVENous, PRN, Janet Rosemarie, DO gabapentin (Neurontin) capsule 300 mg, 300 mg, Oral, BID, Janet Rosemarie, DO, 300 mg at 03/23/25914 glucagon (human recombinant) injection 1 mg, 1 mg, IntraMUSCular, PRN, Janet Rosemarie, DO glucose oral gel 15 g, 15 g, Oral, PRN, Janet Rosemarie, DO HYDROmorphone (Dilaudid) injection 0.25 mg, 0.25 mg, IntraVENous, q4h PRN, 0.25 mg at 03/23/25 0919 OR [DISCONTINUED] HYDROmorphone (Dilaudid) injection 0.5 mg, 0.5 mg, IntraVENous, q4h PRN, Miguel Hui DO, 0.5 mg at 03/22/25 0707 insulin glargine (Lantus) injection 26 Units, 26 Units, SubCUTAneous, Nightly, Janet Houston DO, 26 Units at 03/22/252050 Insulin Lispro (Humalog) injection 0-12 Units, 0-12 Units, SubCUTAneous, TID WC, 6 Units at 03/23/25 1253 AND Insulin Lispro (Humalog) injection 0-12 Units, 0-12 Units, SubCUTAneous, Nightly, Raffi Paulino MD, 4 Units at 03/22/252050 Lactobacillus 0.05-0.05 MG 4 tablet, 4 tablet, Oral, Daily, Janet Houston DO, 4 tablet at 03/23/25 0932 levothyroxine (Synthroid, Levoxyl) tablet 25 mcg, 25 mcg, Oral, qAM AC, Janet Houston DO, 25 mcg at 03/23/25 0530 melatonin tablet 3 mg, 3 mg, Oral, Nightly PRN, Ania Webb, 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 - NUCLEAR PLANT INSTRUMENT TECHNICIAN metoprolol tartrate (Lopressor) injection 5 mg, 5 mg, IntraVENous, q5 min PRN, Raffi Paulino MD, 5 mg at 03/23/25 1010 metoprolol tartrate (Lopressor) tablet 25 mg, 25 mg, Oral, q8h, Raffi Paulino MD, 25 mg at 03/23/25 0915 naloxone (Narcan) injection 0.4 mg, 0.4 mg, IntraVENous, PRN, Miguel Hui DO ondansetron ODT (Zofran-ODT) disintegrating tablet 4 mg, 4 mg, Oral, q8h PRN OR ondansetron (Zofran) injection 4 mg, 4 mg, IntraVENous, q6h PRN, Janet Houston DO oxyCODONE (Roxicodone) immediate release tablet 2.5 mg, 2.5 mg, Oral, q4h PRN, 2.5 mg at 03/22/25 1728 OR oxyCODONE (Roxicodone) immediate release tablet 5 mg, 5 mg, Oral, q4h PRN, Miguel Lucero Pentz, DO, 5 mg at 03/23/25 0530 piperacillin-tazobactam (Zosyn) 4,500 mg in sodium chloride 0.9 % 100 mL IVPB Mini-Bag Plus, 4,500 mg, IntraVENous, q6h, Raffi Paulino MD, Stopped at 03/23/25 1221 polyethylene glycol (PEG) 3350 (Miralax) packet 17 g, 17 g, Oral, Daily PRN, Miguel Nic Pentz, DO sodium chloride 0.9 % infusion, 250 mL/hr, IntraVENous, PRN, Ross G Armstrong, JUNIOR PROGRAMMER trospium (Sanctura) tablet 20 mg, 20 mg, Oral, qAM AC, Janet Houston, DO, 20 mg at 03/23/25 0530 Hospitalist Progress Note Subjective: Admit Date: 03/20/2025 PCP: Dorothy Medrano Room#: [id number] A Chief Complaint Patient presents with Fall Hip Pain Left hip pain Brief Hospital course: Per previous providers note: Patient is an 84-year-old female with past medical history of atrial fibrillation, type 2 diabetes, hyperlipidemia, hypertension, hypothyroidism, CKD stage III, peripheral neuropathy, diabetic foot ulcer, who was last seen in the hospital from 03/12/2025 until 03/15/2025 secondary to A-fib with RVR, NAYELY, NAGMA and hyperkalemia. Patient presented to the hospital on 03/20/2025 after falling last night. She lives alone and was unable to get up. She laid on the floor all night until home health nurse found her (being followed for the wound). She states it was a trip and fall type incident without any syncope. Did not hit her head. No loss of consciousness but she is unable Jalil Krystal much surrounding the event. She remains on Eliquis for her atrial fibrillation. She states that she can feel her atrial fibrillation (she does have palpitations) however she cannot remember having palpitations prior to the event. She has no current palpitations or chest pain. No new dyspnea or cough. No GI/ symptoms reported. While in the emergency department, she obtained a nerve block for pain control. Her vital signs waxed and waned. Heart rate ranged between (61-115). Blood pressure stable. Saturating well on room air. BMP revealed hyperchloremia, metabolic acidosis (bicarb 16), creatinine of 1.7 (NAYELY, baseline creatinine around 1). Glucose found to be 350. Anion gap 15. CK2 53. WBC count 14.1. Hemoglobin 10.3 (normally about 11) she does have a left shift. A1c 6.8. Urinalysis negative for obvious infection. - Chest x-ray personally reviewed and without acute abnormality - X-ray of the femur (left) showed degenerative joint disease - More proximally, x-ray of the left hip showed a acute, moderately comminuted subtrochanteric fracture of the left proximal femur with possible slight intertrochanteric component with shortening of the distal fracture fragment - EKG personally reviewed showing A-fib with RVR - X-ray of the right tib-fib showed no evidence of fracture Patient was started on LR for hydration. Metoprolol for A-fib. Patient was seen by Ortho who recommends surgical repair of hip on 03/21/2025. *Last TTE completed 03/15/2025 showing an EF of 57%, normal RV function. Mild to moderate global valvular disease" Cardiology seen the patient, recommendations noted Geriatrics seen the patient, recommendations noted PT/OT recommends SNF Discussed with antibiotic stewardship team who recommends to DC vancomycin Interval History: 03/23/2025-No overnight issues. Patient is seen and examined She is comfortably resting in her bed without in any acute distress She reports no new acute complaints Son is at bedside Vitals reviewed, stable Labs reviewed, creatinine 1.32, hemoglobin 8.4 Case and plan discussed with patient and bedside nurse. All questions answered. Past Medical History: Medical History[1] Adult diet Regular; 4 carb choices (60 gm/meal) 24HR INTAKE/OUTPUT: Intake/Output Summary (Last 24 hours) at 03/23/2025 1146 Last data filed at 03/23/2025 0534 Gross per 24 hour Intake 550 ml Output 1900 ml Net -1350 ml LABS: CBC: Recent Labs 03/21/25 17403/22/25 0116 03/22/25 0910 03/23/25 0146 WBC 10.0 9.1 -- 8.8 RBC 2.70* 2.25* -- 2.84* HGB 8.2 8.0* 6.7* 8.2* 8.4* HCT 25.2* 20.6* 25.6* 26.1* MCV 93.3 91.6 -- 91.9 RDW 15.7* 16.0* -- 16.0* PLT 158 157 -- 180 BMP: Recent Labs 03/21/25 0216 03/22/25 0116 03/23/25 0146 NA 136 133* 139 K 4.5 4.5 4.5 CL 107 105 108* CO2 18* 19* 22* BUN 38* 37* 28* CREATININE 1.40* 1.45* 1.32* GLUCOSE 201* 223* 206* CALCIUM 9.0 8.0* 8.6* ANIONGAP 11 9 9 LIVER PROFILE: Recent Labs 03/21/25174403/22/25 011 AST 22 28 ALT 12 9 BILITOT 1.2* 0.6 ALKPHOS 37* 36* PROT 6.4 5.8* PT/INR: Recent Labs 03/20/25 2140 PROTIME 11.6 INR 1.1 CARDIAC ENZYMES: No results for input(s): "TROPONINI" in the last 72 hours. Procalcitonin: Lab Results Component Value Date PROCAL 0.23 (H) 03/21/2025 COVID-19 PCR: No results for input(s): "COVID19" in the last 72 hours. Objective: Vitals: BP (!) 168/85 (BP Location: Left arm, Patient Position: Sitting) Pulse 109 Temp (!) 35.6 C (96.1 F) (Temporal) Resp 14 Ht 5' 10.75" (1.797 m) Wt 200 lb (90.7 kg) SpO2 97% BMI 28.09 kg/m Pulse Ox: SpO2 Av % Min: 94 % Max: 99 % Supplemental O2: Physical Exam HENT: Head: Normocephalic and atraumatic. Mouth/Throat: Mouth: Mucous membranes are moist. Cardiovascular: Rate and Rhythm: Tachycardia present. Rhythm irregular. Pulmonary: Effort: Pulmonary effort is normal. Abdominal: Palpations: Abdomen is soft. Musculoskeletal: Comments: L hip/thigh dressings clean, dry, intact R foot diabetic ulcer, mild surroudning erythema, TTP Skin: General: Skin is warm and dry. Neurological: Mental Status: She is alert. Psychiatric: Mood and Affect: Mood normal. Medications: Scheduled PRN Scheduled Meds[2] PRN Meds[3] Continuous Continuous Meds[4] Assessment Data: (CAT1) Reviewed 2 notes from different specialty or health system (each=1). (CAT1) Reviewed 3 or more labs/studies ordered by another provider not previously counted (each=1, panels count as 1). (CAT1) Ordered 3 or more new labs and/or studies (each=1, panels count as 1). (LOW: 2x CAT1 or independent historian MOD: 3x CAT1 or 1x CAT3 EXTENSIVE: 3x CAT1 and 1x CAT3) Acute, acute on chronic, unstable/uncontrolled chronic problems/diagnoses: Comminuted subtrochanteric fracture of the left proximal femur s/p ORIF with intramedullary nail insertion 03/21 Mechanical fall - geriatrics consulted, appreciated recs NAYELY superimposed on CKD, unclear baseline Cr - improved Metabolic acidosis Traumatic rhabdomyolysis Hypotension of unknown etiology, technically meeting septic shock criteria. However likely multifactorial: anemia + afib rvr. Bps sustained with rate control. Acute anemia, no evident bleeding apart from expected perioperative losses. Pt incremented appropriately s/p 1u prbc 03/21, required additional unit 03/22. Negative hemolysis workup Uncontrolled type 2 diabetes w/peripheral neuropathy and hyperglycemic R diabetic foot ulcer. Prev cultures 01/26/25 bacteroides fragilis + MSSA. Ordered empiric vanc + zosyn, follow up wound cx Afib RVR (on eliquis); improved Lactic acid elevation, resolved Stable chronic problems affecting care, new non-acute diagnoses: Hyperlipidemia Hx Hypertension Hypothyroidism T2DM with hyperglycemia Medical History[5] Plan As a result of the above findings & factors, the following mgmt was pursued: - Ortho following - Hgb 6.8 on 03/22, received 1u prbc and incremented to 8.0. - Reticulocyte index 0.9 c/w hypoproliferative marrow response. Ordered ferritin, B12, folate. If no correctable lab abnormalities would consult heme - Lantus 26 u nightly + med dose SSI - Vancomycin DC'd as per antibiotic stewardship team recommendations - Cont lopressor q8h -Eliquis resumed - am labs, replace lytes prn - PT/OT/CM/SW - delirium precautions: increase activity, limit nighttime disturbances, and avoid anticholinergic meds, benzos, etc - DVT prophylaxis: encourage ambulation and already anticoagulated Complexity: Acute illness or injury posing a threat to life or body function (HIGH). Risk: Advance Directive: Full Code Anticipated Discharge - Date -TBD - Location - Skilled Facility - Pending the following - Clinical course, placement Total time spent (which include face to face and non face to face encounters) : 39 minutes Extended Emergency Contact Information Primary Emergency Contact: LeslieHi Relation: Son Preferred language: Burmese Metal Bumper needed? No Secondary Emergency Contact: Melba [facility] Mobile Relation: Daughter Brice Bellojudithlisa MD Svetlana Division of Hospital Medicine Inpatient Medical Services/[facility] [1] Past Medical History: Diagnosis Date Arthritis Atrial fibrillation (HCC) Diabetes mellitus (HCC) Hyperlipidemia Hypertension Hypothyroidism Neuropathy [2] acetaminophen, 1,000 mg, Oral, TID apixaban, 5 mg, Oral, BID atorvastatin, 20 mg, Oral, Nightly gabapentin, 300 mg, Oral, BID insulin glargine, 26 Units, SubCUTAneous, Nightly insulin lispro, 0-12 Units, SubCUTAneous, TID WC And insulin lispro, 0-12 Units, SubCUTAneous, Nightly Lactobacillus, 4 tablet, Oral, Daily levothyroxine, 25 mcg, Oral, qAM AC metoprolol tartrate, 25 mg, Oral, q8h piperacillin-tazobactam, 4,500 mg, IntraVENous, q6h trospium, 20 mg, Oral, qAM AC vancomycin, 1,000 mg, IntraVENous, q24h [3] PRN medications: dextrose, dextrose, glucagon (rDNA), glucose, HYDROmorphone OR [DISCONTINUED] HYDROmorphone, melatonin, metoprolol, naloxone, ondansetron ODT OR ondansetron, oxyCODONE OR oxyCODONE, polyethylene glycol (PEG) 3350, sodium chloride [4] [5] Past Medical History: Diagnosis Date Arthritis Atrial fibrillation (HCC) Diabetes mellitus (HCC) Hyperlipidemia Hypertension Hypothyroidism Neuropathy Images from the original note were not included. OCCUPATIONAL THERAPY [facility] Initial Evaluation Name/MRN: Hanna Nelson ([id number]) Evaluation Date: 03/23/2025 Date of : 1940 Admission Date: 03/20/2025 11:09 AM Age: 84 y.o. [facility] A Discharge Recommendation: [facility] Facility Other: Continue to assess Assessment IMPRESSION: Pt presented with a Fall and L hip pain upon admission. Dx- left intertrochanteric femur fracture with subtrochanteric extension and s/p L CMN on 03/21/25. Pt is currently WBAT. Pt is a poor historian, uncertain if PLOF is accurate. Per pt, she is independent at baseline for ADL's and functional ambulation w/Rollator, currently presenting significantly below baseline. Pt is currently limited by pain/anxiety as well as diminished strength, endurance, balance, and safety. Pt is currently Max A for bed mobility and Mod-Min A for sitting balance EOB. Pt yells with all mobility and requires max encouragement and reassurance. Pt is currently Max A for LB ADL's and Mod-Min A for UB ADL's. Recommending SNF at this time as pt is unsafe to return home alone. Pt will continue to benefit from acute OT services while admitted to increase functional independence. Admitting Diagnosis: left intertrochanteric femur fracture with subtrochanteric extension and s/p L CMN on 03/21/25. Performance Deficits /Impairments: Increased Pain, Decreased Functional Mobility, Decreased ADL status, Decreased Strength, Decreased Safety Awareness, Decreased Endurance, Decreased Balance, Decreased High Level IADLs, Decreased Cognition, and Decreased Posture Prognosis: Fair Decision Making: Medium Complexity Subjective RN cleared for therapy and states she is up to date with pain medication. Pt supine in bed upon OT arrival; pt tearful instantly with OT. Pt agreeable to OT eval with max encouragement. Pt supine in bed at end of session with call light within reach and RN notified. Pain: 0-10 pain scale: 8-9/10 Location: L hip Past Medical History: Medical History[1] Past Surgical History: Surgical History[2] Admission Diagnosis: Patient Active Problem List Diagnosis Date Noted Closed fracture of left hip, initial encounter ([facility]) 03/20/2025 Atrial fibrillation with rapid ventricular response ([facility]) 03/12/2025 Sepsis ([facility]) 01/26/2025 Confusion 12/02/2024 Pes planus of both feet 10/16/2024 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 10/16/2024 Non-pressure chronic ulcer of other part of right foot with necrosis of muscle ([facility]) 10/16/2024 Diabetic ulcer of right foot associated with diabetes mellitus due to underlying condition, with necrosis of muscle ([facility]) 10/09/2024 Uncontrolled type 2 diabetes mellitus with hyperglycemia ([facility]) 09/18/2024 Medical Precautions: No active isolations Proper PPE donned/doffed in accordance with facility standards. Fall Risk: Proctor Fall Risk Score: 85 (Low Risk) Proctor Fall Risk Score: 85 (High Risk) Precautions/Restrictions: Left LE Weight Bearing: Weight Bearing As Tolerated Lines/Drains/Airways: PIV, purewick Family/Caregiver Present: none Overall Cognitive Status: Exceptions - Arousal/alertness: appropriate responses to stimuli - Following commands: follows one step commands with increased time and follows one step commands with repetition - Safety judgement: decreased awareness of need for safety - Problem solving: assistance required to identify errors made and assistance required to correct errors made - Initiation: requires cues for all - Sequencing: requires cues for some Overall Orientation Status: Oriented to Situation and Oriented to Person Social/Functional History Patient admitted from home. Lives With: Alone Type of Home: single family home Home Layout: Single Level Home Home Access: Ramped Entrance Bathroom Shower/Tub: Tub/Shower Combo Toilet: Standard Home Equipment: rollator Homemaking Responsibilities: Independent Receives Help From: None Active Bindery Manager: N/A Prior Level of Function Prior Level of ADL Function: Independent Prior Level of Mobility: Independent; Device: Rollator Prior Level of Transfers: Independent Objective ADLs ADL's not directly performed during session due to pain and pt declining. Pt is currently Max A for LB dressing and Mod-Min A for UB dressing due to current skill set and limitations. Upper Extremity Assessment AROM: WFL PROM: Not assessed this session Strength: WFL Grossly 3+/5 Bed Mobility Supine to sit: Max Assist Sit to supine: Max Assist Scooting: Dependent, x2 Person Assist, supine scoot toward HOB HOB Elevated Transfers/Mobility Sitting balance: Min Assist, Mod Assist Pt sat EOB ~5 minutes with max encouragement and reassurance. Pt leans onto R elbow as pt states pain in L hip. Pt unable to correct and becomes tearful throughout session. Pt declines pt further transfers at this time. Device(s) used: Used therapist for support AM-PAC AM-PAC Inpatient Daily Activity Raw Score: 13 ADL Inpatient CMS G-Code Modifier: CL Plan Pt would benefit from skilled acute OT services to address Strengthening, Balance Training, Self-Care/ADL Training, Functional Mobility Training, Endurance Training, Safety Education and Training, Pain Management, Equipment Evaluation/Education, and Cognitive Reorientation Frequency: 3x/week for 4 weeks Barriers: Pain, Impaired balance, Lower extremity weakness, Upper extremity weakness, Decreased endurance, Limited safety awareness, and Confusion Safety/Education Safety Safety Devices in place: call light within reach, left in bed, nurse notified, and no alarms engaged upon entry Restraints: No Education Education Given To: patient Education Provided: OT Role, Plan of Care, Precautions, ADL Adaptive Strategies, Transfer Training, Orientation, Equipment, Fall Prevention Education, Discharge Recommendations, and Benefits of Increasing Activity Education Method: Verbal Barriers to Learning: Cognition Education Outcome: Continued Education Needed Goals Patient Stated Goal: "To be in less pain". Encounter Problems Encounter Problems (Active) Balance Patient will maintain dynamic standing balance for 3-5 minutes with min assist in order to demonstrate decreased risk of falling. Start: 03/23/25 Expected End: 04/20/25 Patient will maintain static sitting balance for 10+ minutes with supervision in order to demonstrate improved postural control and prepare for out of bed mobility. Start: 03/23/25 Expected End: 04/20/25 Dressings Lower Extremities Patient will dress lower body with Min A Start: 03/23/25 Expected End: 04/20/25 Grooming Patient will complete daily grooming tasks with SBA Start: 03/23/25 Expected End: 04/20/25 Mobility Patient will demonstrate functional ambulation with Min A Start: 03/23/25 Expected End: 04/20/25 Toileting Patient will complete toileting tasks at [facility] with min assist. Start: 03/23/25 Expected End: 04/20/25 Transfers Patient will complete functional transfer with least restrictive device with min assist in order to prepare for ambulation. Start: 03/23/25 Expected End: 04/20/25 Patient will perform bed mobility with min assist in order to improve independence and prepare for out of bed mobility. Start: 03/23/25 Expected End: 04/20/25 Therapy Time Individual Co-Treatment Co-Evaluation Time In 916 Time Out 0939 Minutes 22 Ron Dunbar OT Patient's Occupational Therapy Plan of Care supervision is transferred to a [facility] Occupational Therapist. Goals and/or treatment plan was established in collaboration with patient/family/other representatives. [1] Past Medical History: Diagnosis Date Arthritis Atrial fibrillation (HCC) Diabetes mellitus (HCC) Hyperlipidemia Hypertension Hypothyroidism Neuropathy [2] Past Surgical History: Procedure Laterality Date BACK SURGERY CHOLECYSTECTOMY Pharmacy to Dose Vancomycin - Progress Note Lab Results Component Value Date CREATININE 1.32 (H) 03/23/2025 BUN 28 (H) 03/23/2025 WBC 8.8 03/23/2025 VANCOTROUGH 17.7 03/23/2025 Doses, serum creatinine, and vancomycin levels interfaced automatically to [employer] and data has been analyzed and interpreted. Infectious Diagnosis: SSTI/Sepsis Est CrCl: 44 mL/min (Cockcroft-Gault) Assessment: Current regimen vancomycin 1000 mg every 24 hours (11 mg/kg) Predicted AUC = 467 mg/L*hr (goal 400-600 mg/L*hr) PAUC = 74% (probability that AUC is >400 mg/L*hr) Pconc = 12% (probability that Ctrough is above 20 mcg/mL (toxicity)) Plan: Is the current dose therapeutic? [x] Yes - obtain next level on 03/26 unless predicted AUC is sub-/supra-therapeutic or change in serum creatinine. Trend serum creatinine. Trend AUC using Bayesian Modeling. Orders placed. DATE: 03/23/25 TIME: 7:26 AM Norberto Cooper PharmD Clinical Pharmacist Available via Secure Chat Orthopedic Progress Note Name: Hanna Nelson Date:03/23/2025 Attending:Brice Mota MD Subjective No events o/n. Patient doing well. States her pain has been fairly controlled. Denies any numbness or tingling in her leg. Denies fevers, and chills. All questions answered. States that she has not yet ambulated or worked with therapy secondary to pain. She was encouraged to work with therapy today and is planning to go to a SNF. Objective Vitals: Vitals: 03/22/25 1604 03/22/25 2045 03/23/25 0026 03/23/25 0514 BP: 120/71 149/94 123/86 146/82 BP Location: Left arm Left arm Left arm Patient Position: Lying Sitting Sitting Pulse: 86 112 96 87 Resp: 17 18 16 16 Temp: 36.6 C (97.8 F) 36.3 C (97.3 F) 36.1 C (97 F) 36 C (96.8 F) TempSrc: Temporal Temporal Temporal Temporal SpO2: 94% 96% 99% 99% Weight: Height: Physical Exam: General: NAD LLE Dressing/Skin: Clean/Dry/Intact SILT: Saphenous/Superficial Peroneal/Deep Peroneal/Tibial/Sural distributions Motor: +Dorsiflexion/Plantarflexion/Grea t toe extension Pulses: Palpable DP LABS: Recent Labs 03/21/25 1745 03/22/25 0116 03/22/25 0910 03/23/25 0146 WBC 10.0 9.1 -- 8.8 HGB 8.2 8.0* 6.7* 8.2* 8.4* HCT 25.2* 20.6* 25.6* 26.1* PLT 158 157 -- 180 Recent Labs 03/21/25 0216 03/22/25 0116 03/23/25 0146 NA 136 133* 139 K 4.5 4.5 4.5 CL 107 105 108* CO2 18* 19* 22* BUN 38* 37* 28* CREATININE 1.40* 1.45* 1.32* CALCIUM 9.0 8.0* 8.6* Recent Labs 03/20/25 2140 INR 1.1 No results for input(s): "SEDRATE", "CRP" in the last 72 hours. No results for input(s): "HCG" in the last 72 hours. Assessment Hanna is a 84 y.o.female s/p L CMN on 03/21 Plan -Operative plans: No further plans for surgery -Weight bearing: RLE: WBAT LLE: WBAT RUE: WBAT LUE: WBAT -Range of motion parameters: ROM as tolerated -Immobilization: No immobilization needed -Antibiotics: 24 hours of post op antibiotics. -Dressings: Keep dressings clean dry and intact for 5 days post operatively, then ok to leave open to air if incision is without drainage. -Diet: no restrictions from ortho standpoint -Labs: Daily labs -PT/OT -PT recommended outpatient/post discharge?: Yes, for basic ADLs -Ice & elevate -Medical management, dvt ppx and pain control per primary -DVT ppx recommended?: Per primary team -Follow-up with Dr Sullivan in 2 weeks -Ortho to follow peripherally for DVT prophylaxis today Nic Santoro MD Orthopaedic Surgery PGY2 Images from the original note were not included. PHYSICAL THERAPY [facility] Initial Evaluation Name/MRN: Hanna Nelson ([id number]) Evaluation Date: 03/22/2025 Date of : 1940 Admission Date: 03/20/2025 11:09 AM Age: 84 y.o. Room/Bed: [facility]36/61 A Discharge Recommendation: [facility] Facility Assessment IMPRESSION: Pt admitted for below. Pt is WBAT and ROM as tolerated on LLE. 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 Pt is very limited by left hip pain (RN recently gave pain medication). Pt has gross weakness on LLE > RLE. Pt is only able to tolerated minimal bed mobility. Pt is unable to stand up or sit up on the side of the bed. Recommend SNF. Admitting Diagnosis: Closed fracture of left hip, initial encounter ([facility]) [S72.002A] S/p L CMN on 03/21/25 Prognosis: good Performance Deficits /Impairments: Increased Pain, Decreased Functional Mobility, Decreased ADL status, Decreased Strength, and Decreased ROM Decision Making: Medium Complexity Subjective Pt agreeable for therapy. Pt reports 8/10 pain with activity and 4/10 with rest on bilateral hips. Past Medical History: Medical History[1] Past Surgical History: Surgical History[2] Admission Diagnosis: Patient Active Problem List Diagnosis Date Noted Closed fracture of left hip, initial encounter ([facility]) 03/20/2025 Atrial fibrillation with rapid ventricular response ([facility]) 03/12/2025 Sepsis ([facility]) 01/26/2025 Confusion 12/02/2024 Pes planus of both feet 10/16/2024 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 10/16/2024 Non-pressure chronic ulcer of other part of right foot with necrosis of muscle ([facility]) 10/16/2024 Diabetic ulcer of right foot associated with diabetes mellitus due to underlying condition, with necrosis of muscle ([facility]) 10/09/2024 Uncontrolled type 2 diabetes mellitus with hyperglycemia ([facility]) 09/18/2024 Medical Precautions: No active isolations Proper PPE donned/doffed in accordance with facility standards. Fall Risk: [place]ctor Fall Risk Score: 85 (Low Risk) [place]ctor Fall Risk Score: 85 (High Risk) Precautions/Restrictions: Left LE Weight Bearing: Weight Bearing As Tolerated ROM As tolerated. Family/Caregiver Present: none Overall Cognitive Status: WFL Overall Orientation Status: Oriented to Place, Oriented to Situation, and Oriented to Person Vision: No Visual Deficits Hearing: normal Social/Functional History Pt lives alone, 1 story condo with ramp entrance. Pt has tub/shower. Uses FWW. Pt reports son or daughter could not assist. Prior Level of Function Prior Level of ADL Function: Independent Prior Level of Mobility: Independent; Device: Front wheeled walker Prior Level of Transfers: Independent Objective Lower Extremity Assessment AROM: Exceptions: RLE is grossly SLR is 50%; knee ROM is 50% of WFL; ankle is WFL; SLR is minimal contraction; knee ROM is minimal contraction; ankle is WFL. Strength: Exceptions: right hip/knee is 2/5; ankle is 4/5; left hip/knee is 1/5. Sensation: WFL Bed Mobility: Rolling to right: Max Assist Rolling to left: Max Assist Pt limited by pain and unable to move to side of bed. Pt yells in pain and states "I can't do that, I can't". Pt motivated to get up but very upset. Transfers unable Ambulation Did not assess this session. Outcome Measures AM-PAC How much HELP from another person do you currently need Turning from your back to your side while in a flat bed without using bedrails?: Total Moving from lying on your back to sitting on the side of a flat bed without using bedrails?: Total Moving to and from a bed to a chair (including a wheelchair)?: Total Standing up from a chair using your arms (wheelchair or bedside chair)?: Total Walking in a hospital room?: Total Stair climbing assessed?: No AM-PAC Inpatient Mobility Raw Score (No Stairs) : 5 [id number] Score: Bed activity Plan Pt would benefit from skilled acute PT services to address Strengthening, ROM, Gait Training, Balance Training, Functional Mobility Training, Endurance Training, Safety Education and Training, Stair Training, Equipment Evaluation/Education, Neuromuscular Re-Education Training, and Positioning. Frequency: 3x/weekfor 2 weeks Barriers: Pain, Impaired balance, Lower extremity weakness, Decreased endurance, and New weightbearing/ROM restrictions Safety/Education Safety Safety Devices in place: All fall risk precautions in place, call light within reach, left in bed, and patient at risk for falls Restraints: N/A Education Education Given To: patient Education Provided: PT Role, PT Goals, Plan of Care, and Precautions Education Method: Verbal Barriers to Learning: None Education Outcome: Verbalized Understanding Goals Patient Stated Goal: to move but to not be in so much pain Encounter Problems Encounter Problems (Active) Exercise Improve left hip strength to 3+/5 Start: 03/22/25 Mobility Patient will ambulate 75 feet with SBA and rolling walker in order to improve safety and independence with mobility. Start: 03/22/25 Transfers Patient will perform bed mobility with min assist in order to improve independence and prepare for out of bed mobility. Start: 03/22/25 Patient will complete functional transfer with rolling walker with SBA in order to prepare for ambulation. Start: 03/22/25 Therapy Time Individual Co-Treatment Co-Evaluation Time In 1410 Time Out 1422 Minutes 12 Loren Valencia PT Patient's Physical Therapy Plan of Care supervision is transferred to a [facility] Physical Therapist. Goals and/or treatment plan was established in collaboration with patient/family/other representatives. [1] Past Medical History: Diagnosis Date Arthritis Atrial fibrillation (HCC) Diabetes mellitus (HCC) Hyperlipidemia Hypertension Hypothyroidism Neuropathy [2] Past Surgical History: Procedure Laterality Date BACK SURGERY CHOLECYSTECTOMY Nutrition Assessment Type and Reason for Visit: Initial, Positive Nutrition Screen Nutrition Recommendations/Plan: Current diet is regular. Recommend 4 CHO Control (60 gm/meal) to assist with BG control (recent BG 262, 220, 284, 299, 201, 221, 233). Per MNT protocol will send wound healing supplement fruit punch Jamie BID (1 pkt provides 95 kcals, 2.5 gm protein, 300 mg Vitamin C) Please document % of meals and oral nutrition supplement consumed daily on flow sheets. Monitor weight, labs, I/O, skin assessment, BM, and overall nutritional status. RD will follow up weekly. Malnutrition Assessment: Malnutrition Status: No malnutrition Nutrition Assessment: PMH includes: HTN, T2DM, HLD, CKD III, hypothyroid, atrial fibrillation, neuropathy, chronic diabetic food ulcer, arthritis, cholecystectomy. Patient presented with a mechanical fall and L hip fracture s/p ORIF. Post op, patient with anemia, a fib with RVR, and hypotension. RD spoke with patient early this am. She mentions that she likes to cook and eat. Appetite and po intake have been good. She cannot recall what she ate this am and awaiting lunch. She states that current weight is 200# and weight may vary a little bit. Stated last BM was day before surgery. NKFA. Estimated Daily Nutrient Needs: Energy Requirements Based On: Kcal/kg Weight Used for Energy Requirements: [place] Weight for Energy Calculation (kg): 70 kg Total Energy Requirements (kcals/day): 3783-9623 kcals per day (25-30) Weight Used for Protein Requirements: [place] Weight in Kg Used for Protein Requirements: 70 kg Estimated Total Protein (g/day): 70-84 gm per day (1.0-1.2) Estimated Daily Total Fluid (ml/day): Per MD Nutrition Related Findings: Kait = 18, GI WDL, non pitting BLE edema, I/O: +1982 (since admit), room service selective Wound Type: Surgical Incision (Per MD: Lesion (R foot diabetic ulcer, mild surroudning erythema, TTP)) BMP: Recent Labs 03/20/25 2123 03/21/25 0216 03/21/25 1745 03/22/25 0116 NA 135* 136 -- 133* K 4.5 4.5 -- 4.5 CL 106 107 -- 105 CO2 20* 18* -- 19* BUN 41* 38* -- 37* CREATININE 1.32* 1.40* -- 1.45* GLUCOSE 216* 201* -- 223* CALCIUM 8.9 9.0 -- 8.0* MG -- -- 1.7 -- 03/22/25 Albumin 3.2 HEPATIC: Recent Labs 03/21/25 1745 03/22/25 0116 AST 22 28 ALT 12 9 BILITOT 1.2* 0.6 ALKPHOS 37* 36* Lab Results Component Value Date HGBA1C 6.8 (H) 03/20/2025 Medications: Scheduled Meds[1] Continuous Meds[2] PRN Meds[3] Current Nutrition Therapies: Adult diet Regular Anthropometric Measures: Height: 179.7 cm (5' 10.75") Admission Body Weight: 90.7 kg (200 lb) (stated on 03/20/25) [place] Body Weight (lbs) (Calculated): 154 lbs [place] Body Weight (Kg) (Calculated): 70 kg Weight Adjustment For: No Adjustment BMI Categories: Overweight (BMI 25.0-29.9) Nutrition Diagnosis: Increased nutrient needs due to increased demand for energy/nutrients as evidence by wounds Nutrition Interventions: Nutrition Education/Counseling: No recommendation at this time Coordination of Nutrition Care: Continue to monitor while inpatient Goals: Goals: PO intake 75% or greater, prior to discharge Nutrition Monitoring and Evaluation: Behavioral-Environmental Outcomes: None Identified Food/Nutrient Intake Outcomes: Food and Nutrient Intake Physical Signs/Symptoms Outcomes: Biochemical Data, GI Status, Fluid Status or Edema, Meal Time Behavior, Nutrition Focused Physical Findings, Skin, Weight Discharge Planning: No discharge needs at this time Radha Núñez RD Contact: *[phone] [1] [Held by provider] apixaban, 5 mg, Oral, BID atorvastatin, 20 mg, Oral, Nightly gabapentin, 300 mg, Oral, BID insulin glargine, 26 Units, SubCUTAneous, Nightly insulin lispro, 0-12 Units, SubCUTAneous, TID WC And insulin lispro, 0-12 Units, SubCUTAneous, Nightly Lactobacillus, 4 tablet, Oral, Daily levothyroxine, 25 mcg, Oral, qAM AC metoprolol tartrate, 25 mg, Oral, q8h piperacillin-tazobactam, 4,500 mg, IntraVENous, q6h trospium, 20 mg, Oral, qAM AC vancomycin, 1,000 mg, IntraVENous, q24h [2] lactated Ringer's, 75 mL/hr, Last Rate: 75 mL/hr (03/22/25 1349) [3] PRN medications: acetaminophen OR acetaminophen, dextrose, dextrose, glucagon (rDNA), glucose, HYDROmorphone OR HYDROmorphone, metoprolol, naloxone, ondansetron ODT OR ondansetron, oxyCODONE OR oxyCODONE, polyethylene glycol (PEG) 3350, sodium chloride Hospitalist Progress Note - [facility] Acute Care [facility] ([facility]) 03/22/2025 11:32 AM [phone]: Please page me for patient care issues. [phone]: Please page [facility] Hospitalist - [facility] for any issues. Subjective and Objective: Admit Date: 03/20/2025 PCP: Dorothy Medrano Chief Complaint Patient presents with Fall Hip Pain Left hip pain Hospital course: Per HPI: "Patient is an 84-year-old female with past medical history of atrial fibrillation, type 2 diabetes, hyperlipidemia, hypertension, hypothyroidism, CKD stage III, peripheral neuropathy, diabetic foot ulcer, who was last seen in the hospital from 03/12/2025 until 03/15/2025 secondary to A-fib with RVR, NAYELY, NAGMA and hyperkalemia. Patient presented to the hospital on 03/20/2025 after falling last night. She lives alone and was unable to get up. She laid on the floor all night until home health nurse found her (being followed for the wound). She states it was a trip and fall type incident without any syncope. Did not hit her head. No loss of consciousness but she is unable Jalil Krystal much surrounding the event. She remains on Eliquis for her atrial fibrillation. She states that she can feel her atrial fibrillation (she does have palpitations) however she cannot remember having palpitations prior to the event. She has no current palpitations or chest pain. No new dyspnea or cough. No GI/ symptoms reported. While in the emergency department, she obtained a nerve block for pain control. Her vital signs waxed and waned. Heart rate ranged between (61-115). Blood pressure stable. Saturating well on room air. BMP revealed hyperchloremia, metabolic acidosis (bicarb 16), creatinine of 1.7 (NAYELY, baseline creatinine around 1). Glucose found to be 350. Anion gap 15. CK2 53. WBC count 14.1. Hemoglobin 10.3 (normally about 11) she does have a left shift. A1c 6.8. Urinalysis negative for obvious infection. - Chest x-ray personally reviewed and without acute abnormality - X-ray of the femur (left) showed degenerative joint disease - More proximally, x-ray of the left hip showed a acute, moderately comminuted subtrochanteric fracture of the left proximal femur with possible slight intertrochanteric component with shortening of the distal fracture fragment - EKG personally reviewed showing A-fib with RVR - X-ray of the right tib-fib showed no evidence of fracture Patient was started on LR for hydration. Metoprolol for A-fib. Patient was seen by Ortho who recommends surgical repair of hip on 03/21/2025. *Last TTE completed 03/15/2025 showing an EF of 57%, normal RV function. Mild to moderate global valvular disease" Interval Updates: 03/22/25 -Recurrent anemia, hgb 6.7, increased to 8.2 s/p 1u prbc. No correlating symptoms, hemolysis workup negative. Discussed imaging with ortho but suggested to defer; can monitor clinically for compartment symptoms. Lactic acid elevated overnight, downtrended since. -Rates better controlled, cont holding eliquis. Follow up formal cardiology recs. Pressures maintaining. -Consulted geriatrics due to fall preceding admit -Follow up formal cards recs -Fatigued today but no new symptoms otherwise -Follow up reticulocyte index, consult heme if hypoproliferative -Increased to med dose SSI for hyperglycmia 03/21 -intertrochanteric femur fracture s/p ORIF with intramedullary nail insertion 03/21. Messaged by TANK WORKER due to hemodynamic instability. Morning of surgery pt hypotensive to SBP 80s, given 50g IV albumin. OR report with 100cc EBL. Postop in PACU pt BP similarly low to SBP 70s-80s with tachycardia to 130s. Treated with IV albumin 50g, IVF, ephedrine. Hgb 6.8, received 1u prbc and incremented to 8.0. Lactate 2.8. Pt assessed in PACU, Bps up to SBP 90s-low 100s; reported she was asymptomatic without chest pain, palpitations, SOB, lightheadedness, cough, f/c, n/v, d/c. Denied illness symptoms preceding admission including dysuria [per chart review, it was documented that pt gets hypotension with UTIs. UA collected preop with few bacteria and largely unimpressive otherwise]. -Collected blood cultures, R foot ulcer wound cx, bolused 500cc LR, started IVF. Pts HR came down to low 100s with IV metop push, started lopressor 25mg q8h, cardiology consulted. h/h q8h, no obvious source of bleeding so will monitor. Holding eliquis for now. Adult diet Regular Dietary Orders (From admission, onward) Start Ordered 03/21/25 1557 Adult diet Regular Diet effective now Question: Diet type Answer: Regular 03/21/25 5186 I/O last 3 completed shifts: In: 4488 (49.5 mL/kg) [I.V.:4188 (46.2 mL/kg); Blood:300] Out: 1825 (20.1 mL/kg) [Urine:1800 (0.6 mL/kg/hr); Blood:25] Weight: 90.7 kg @IODETAILS@ @[id number]@ Medications: Continuous Meds[1] Scheduled Meds[2] Recent Labs 03/21/25 0123 03/21/25 1147 03/21/25 1745 03/22/25 0116 03/22/25 0910 WBC 12.8* -- 10.0 9.1 -- HGB 9.4* < > 8.2 8.0* 6.7* 8.2* PLT 289 -- 158 157 -- < > = values in this interval not displayed. Recent Labs 03/20/25 2123 03/21/25 0216 03/22/25 0116 NA 135* 136 133* K 4.5 4.5 4.5 CL 106 107 105 CO2 20* 18* 19* BUN 41* 38* 37* CREATININE 1.32* 1.40* 1.45* GLUCOSE 216* 201* 223* Recent Labs 03/21/25 1745 03/22/25 0116 AST 22 28 ALT 12 9 BILITOT 1.2* 0.6 ALKPHOS 37* 36* No results found for: "TRIG", "HDL", "LDLCALC", "CHOL" No results found for: "PHART", "PO2ART", "BAZ6HAJ" Recent Labs 03/20/25 2140 INR 1.1 Recent Labs 03/20/25 1159 CKTOTAL 253* No results for input(s): "DDIMER" in the last 72 hours. Lab Results Component Value Date HGBA1C 6.8 (H) 03/20/2025 No results found for: "TSH" Urine Culture: Results for orders placed or performed during the hospital encounter of 01/25/25 Urine culture Collection Time: 01/26/25 12:22 PM Specimen: Urine, Clean Catch Result Value Ref Range Urine Culture Normal urogenital fabio present Objective: Vitals: BP 110/70 Pulse 85 Temp 36.4 C (97.5 F) (Temporal) Resp 17 Ht 5' 10.75" (1.797 m) Wt 200 lb (90.7 kg) SpO2 97% BMI 28.09 kg/m Pulse Ox: SpO2 Av % Min: 93 % Max: 100 % Physical Exam Vitals reviewed. Constitutional: General: She is not in acute distress. Appearance: She is not ill-appearing, toxic-appearing or diaphoretic. HENT: Mouth/Throat: Mouth: Mucous membranes are moist. Eyes: Extraocular Movements: Extraocular movements intact. Cardiovascular: Rate and Rhythm: Tachycardia present. Rhythm irregular. Pulses: Normal pulses. Pulmonary: Effort: Pulmonary effort is normal. No respiratory distress. Breath sounds: No wheezing or rales. Chest: Chest wall: No tenderness. Abdominal: General: Abdomen is flat. Palpations: Abdomen is soft. Musculoskeletal: General: Tenderness present. Right lower leg: No edema. Left lower leg: No edema. Comments: L hip/thigh dressings c/d/I, mild TTP, postop edema not out of proportion; no obvious induration, erythema, warmth Skin: Findings: Lesion (R foot diabetic ulcer, mild surroudning erythema, TTP) present. Neurological: Mental Status: She is alert and oriented to person, place, and time. Psychiatric: Mood and Affect: Mood normal. Behavior: Behavior normal. ANATOMY/TUBES/LINES: N/A Running Summary, Assessment, and Plan Acute, acute on chronic, unstable/uncontrolled chronic problems/diagnoses: Comminuted subtrochanteric fracture of the left proximal femur s/p ORIF with intramedullary nail insertion 03/21 Mechanical fall - geriatrics consulted, appreciated recs NAYELY superimposed on CKD, unclear baseline Cr - improved Metabolic acidosis Traumatic rhabdomyolysis Hypotension of unknown etiology, technically meeting septic shock criteria. However likely multifactorial: anemia + afib rvr. Bps sustained with rate control. -03/21 messaged by TANK WORKER due to hemodynamic instability. Morning of surgery pt hypotensive to SBP 80s, given 50g IV albumin. OR report with 100cc EBL. Postop in PACU pt BP similarly low to SBP 70s-80s with tachycardia to 130s. Treated with IV albumin 50g, IVF, ephedrine. Hgb 6.8, received 1u prbc and incremented to 8.0. Lactate 2.8. Pt assessed in PACU, Bps up to SBP 90s-low 100s; reported she was asymptomatic without chest pain, palpitations, SOB, lightheadedness, cough, f/c, n/v, d/c. Denied illness symptoms preceding admission including dysuria [per chart review, it was documented that pt gets hypotension with UTIs. UA collected preop with few bacteria and largely unimpressive otherwise]. Acute anemia, no evident bleeding apart from expected perioperative losses. Pt incremented appropriately s/p 1u prbc 03/21, required additional unit 03/22. Negative hemolysis workup. -Reticulocyte index 0.9 c/w hypoproliferative marrow response. Ordered ferritin, B12, folate. If no correctable lab abnormalities would consult heme. Uncontrolled type 2 diabetes w/peripheral neuropathy and hyperglycemic - lantus 26u nightly + med dose SSI R diabetic foot ulcer. Prev cultures 01/26/25 bacteroides fragilis + MSSA. Ordered empiric vanc + zosyn, follow up wound cx. -Deescalate vs more likely discontinue based on cx data 03/23. Afib RVR (on eliquis); improved. -Cont lopressor q8h, holding eliquis for now, resume as able -Follow up formal cards recs -> cont metop, resume AC when clinically stable Lactic acid elevation, resolved Stable chronic problems affecting care, new non-acute diagnoses: Hyperlipidemia Hx Hypertension Hypothyroidism T2DM with hyperglycemia - As a result of the above findings & factors, the following mgmt was pursued: - as above - am labs, replace lytes prn - PT/OT/CM/SW as appropriate - delirium precautions: limit night-time awakening - DVT prophylaxis: eliquis, held Complexity: Acute illness or injury posing a threat to life or body function (HIGH). Risk: Admission to hospital-level care was considered or occurred (HIGH). Anticipated Discharge - Date - tbd - Location - [facility] vs [facility] - Pending the following - PT/OT, clinical course Total time spent (which include face to face and non face to face encounters) in minutes: 51 Raffi Paulino MD Extended Emergency Contact Information Primary Emergency Contact: Hi Nelson Relation: Son Preferred language: Burmese Metal Bumper needed? No Secondary Emergency Contact: Melba Black [facility] [employer] Relation: Daughter Raffi Paulino MD Division of Hospitalist Medicine Inpatient Medical Services/[facility] [1] lactated Ringer's, 75 mL/hr, Last Rate: 75 mL/hr (03/21/25 2058) [2] [Held by provider] apixaban, 5 mg, Oral, BID atorvastatin, 20 mg, Oral, Nightly gabapentin, 300 mg, Oral, BID insulin glargine, 26 Units, SubCUTAneous, Nightly insulin lispro, 0-6 Units, SubCUTAneous, TID WC And insulin lispro, 0-6 Units, SubCUTAneous, Nightly Lactobacillus, 4 tablet, Oral, Daily levothyroxine, 25 mcg, Oral, qAM AC metoprolol tartrate, 25 mg, Oral, q8h piperacillin-tazobactam, 4,500 mg, IntraVENous, q6h trospium, 20 mg, Oral, qAM AC vancomycin, 1,000 mg, IntraVENous, q24h Pharmacy to Dose Vancomycin - Progress Note Lab Results Component Value Date CREATININE 1.45 (H) 03/22/2025 BUN 37 (H) 03/22/2025 WBC 9.1 03/22/2025 VANCOTROUGH 9.9 01/29/2025 Doses, serum creatinine, and vancomycin levels interfaced automatically to [employer] and data has been analyzed and interpreted. Infectious Diagnosis: SSTI / Sepsis Est CrCl: 40 mL/min (Cockcroft-Gault) Assessment: Current regimen vancomycin 1000 mg every 24 hours (11 mg/kg) Predicted AUC = 544 mg/L*hr (goal 400-600 mg/L*hr) PAUC = 79% (probability that AUC is >400 mg/L*hr) Pconc = 36% (probability that Ctrough is above 20 mcg/mL (toxicity)) Plan: Is the current dose therapeutic? [x] Yes - obtain next level on 03/23 unless predicted AUC is sub-/supra-therapeutic or change in serum creatinine. Trend serum creatinine. Trend AUC using Bayesian Modeling. Orders placed. DATE: 03/22/25 TIME: 9:59 AM Norberto Cooper PharmD Clinical Pharmacist Available via Secure Chat Orthopedic Progress Note Name: Hanna Nelson Date:03/22/2025 Attending:Raffi Paulino MD Subjective No events o/n.Patient doing well. States her pain has been well controlled. Denies any numbness or tingling in her leg. Denies fevers, and chills. All questions answered. Objective Vitals: Vitals: 03/21/25 1816 03/21/25 1919 03/22/25 0021 03/22/25 0419 BP: (!) 91/68 94/64 104/59 102/63 BP Location: Right arm Right arm Patient Position: Sitting Sitting Pulse: 103 (!) 131 106 118 Resp: 16 18 12 Temp: 36.2 C (97.1 F) (!) 35.6 C (96 F) 37.1 C (98.8 F) TempSrc: Temporal Temporal Temporal SpO2: 97% 97% 95% Weight: Height: Physical Exam: General: NAD LLE Dressing/Skin: Clean/Dry/Intact SILT: Saphenous/Superficial Peroneal/Deep Peroneal/Tibial/Sural distributions Motor: +Dorsiflexion/Plantarflexion/Grea t toe extension Pulses: Palpable DP LABS: Recent Labs 03/21/25 0123 03/21/25 1147 03/21/25 1745 03/22/25 0116 WBC 12.8* -- 10.0 9.1 HGB 9.4* 6.8* 8.2 8.0* 6.7* HCT 29.3* 21.4* 25.2* 20.6* PLT 289 -- 158 157 Recent Labs 03/20/25 2123 03/21/25 0216 03/22/25 0116 NA 135* 136 133* K 4.5 4.5 4.5 CL 106 107 105 CO2 20* 18* 19* BUN 41* 38* 37* CREATININE 1.32* 1.40* 1.45* CALCIUM 8.9 9.0 8.0* Recent Labs 03/20/25 2140 INR 1.1 No results for input(s): "SEDRATE", "CRP" in the last 72 hours. No results for input(s): "HCG" in the last 72 hours. Assessment Hanna is a 84 y.o.female s/p L CMN Plan -Operative plans: No further plans for surgery -Weight bearing: RLE: WBAT LLE: WBAT RUE: WBAT LUE: WBAT -Range of motion parameters: ROM as tolerated -Immobilization: No immobilization needed -Antibiotics: 24 hours of post op antibiotics. -Dressings: Keep dressings clean dry and intact for 5 days post operatively, then ok to leave open to air if incision is without drainage. -Diet: no restrictions from ortho standpoint -Labs: Daily labs -PT/OT -PT recommended outpatient/post discharge?: Yes, for basic ADLs -Ice & elevate -Medical management, dvt ppx and pain control per primary -DVT ppx recommended?: Per primary team -Follow-up with Dr Sullivan in 2 weeks -Ortho to follow. Jennifer Kenny MD Orthopaedic Surgery PGY-2 4:33 AM 03/22/2025 Hospitalist Progress Note - [facility] - [employer] ([facility]) 03/21/2025 10:43 AM [phone]: Please page me for patient care issues. [phone]: Please page [facility] - [facility] for any issues. Subjective and Objective: Admit Date: 03/20/2025 PCP: Dorothy Medrano Chief Complaint Patient presents with Fall Hip Pain Left hip pain Hospital course: Per HPI: "Patient is an 84-year-old female with past medical history of atrial fibrillation, type 2 diabetes, hyperlipidemia, hypertension, hypothyroidism, CKD stage III, peripheral neuropathy, diabetic foot ulcer, who was last seen in the hospital from 03/12/2025 until 03/15/2025 secondary to A-fib with RVR, NAYELY, NAGMA and hyperkalemia. Patient presented to the hospital on 03/20/2025 after falling last night. She lives alone and was unable to get up. She laid on the floor all night until home health nurse found her (being followed for the wound). She states it was a trip and fall type incident without any syncope. Did not hit her head. No loss of consciousness but she is unable Jalil Krystal much surrounding the event. She remains on Eliquis for her atrial fibrillation. She states that she can feel her atrial fibrillation (she does have palpitations) however she cannot remember having palpitations prior to the event. She has no current palpitations or chest pain. No new dyspnea or cough. No GI/ symptoms reported. While in the emergency department, she obtained a nerve block for pain control. Her vital signs waxed and waned. Heart rate ranged between (61-115). Blood pressure stable. Saturating well on room air. BMP revealed hyperchloremia, metabolic acidosis (bicarb 16), creatinine of 1.7 (NAYELY, baseline creatinine around 1). Glucose found to be 350. Anion gap 15. CK2 53. WBC count 14.1. Hemoglobin 10.3 (normally about 11) she does have a left shift. A1c 6.8. Urinalysis negative for obvious infection. - Chest x-ray personally reviewed and without acute abnormality - X-ray of the femur (left) showed degenerative joint disease - More proximally, x-ray of the left hip showed a acute, moderately comminuted subtrochanteric fracture of the left proximal femur with possible slight intertrochanteric component with shortening of the distal fracture fragment - EKG personally reviewed showing A-fib with RVR - X-ray of the right tib-fib showed no evidence of fracture Patient was started on LR for hydration. Metoprolol for A-fib. Patient was seen by Ortho who recommends surgical repair of hip on 03/21/2025. *Last TTE completed 03/15/2025 showing an EF of 57%, normal RV function. Mild to moderate global valvular disease" Interval Updates: 03/21/25 -intertrochanteric femur fracture s/p ORIF with intramedullary nail insertion 03/21. Messaged by TANK WORKER due to hemodynamic instability. Morning of surgery pt hypotensive to SBP 80s, given 50g IV albumin. OR report with 100cc EBL. Postop in PACU pt BP similarly low to SBP 70s-80s with tachycardia to 130s. Treated with IV albumin 50g, IVF, ephedrine. Hgb 6.8, received 1u prbc and incremented to 8.0. Lactate 2.8. Pt assessed in PACU, Bps up to SBP 90s-low 100s; reported she was asymptomatic without chest pain, palpitations, SOB, lightheadedness, cough, f/c, n/v, d/c. Denied illness symptoms preceding admission including dysuria [per chart review, it was documented that pt gets hypotension with UTIs. UA collected preop with few bacteria and largely unimpressive otherwise]. -Collected blood cultures, R foot ulcer wound cx, bolused 500cc LR, started IVF. Pts HR came down to low 100s with IV metop push, started lopressor 25mg q8h, cardiology consulted. h/h q8h, no obvious source of bleeding so will monitor. Holding eliquis for now. No diet orders on file No intake/output data recorded. @IODETAILS@ @[email or web address]@ Medications: Continuous Meds[1] Scheduled Meds[2] Recent Labs 03/20/25115803/20/25213903/21/25 0123 WBC 14.1* -- 12.8* HGB 10.3* 9.8 9.4* PLT 279 -- 289 Recent Labs 03/20/25 11503/20/25212203/21/25 0216 NA 140 135* 136 K 5.0 4.5 4.5 CL 109* 106 107 CO2 16* 20* 18* BUN 43* 41* 38* CREATININE 1.70* 1.32* 1.40* GLUCOSE 350* 216* 201* No results for input(s): "AST", "ALT", "BILITOT", "ALKPHOS" in the last 72 hours. No lab exists for component: ALB No results found for: "TRIG", "HDL", "LDLCALC", "CHOL" No results found for: "PHART", "PO2ART", "YNT5HCC" Recent Labs 03/20/252139 INR 1.1 Recent Labs 03/20/25 115 CKTOTAL 253* No results for input(s): "DDIMER" in the last 72 hours. Lab Results Component Value Date HGBA1C 6.8 (H) 03/20/2025 No results found for: "TSH" Urine Culture: Results for orders placed or performed during the hospital encounter of 01/25/25 Urine culture Collection Time: 01/26/25 12:22 PM Specimen: Urine, Clean Catch Result Value Ref Range Urine Culture Normal urogenital fabio present Objective: Vitals: BP (!) 83/36 Pulse (!) 130 Temp 36.1 C (97 F) (Tympanic) Resp 16 Ht 5' 10.75" (1.797 m) Wt 200 lb (90.7 kg) SpO2 94% BMI 28.09 kg/m Pulse Ox: SpO2 Av.3 % Min: 93 % Max: 99 % Physical Exam Vitals reviewed. Constitutional: General: She is not in acute distress. Appearance: She is not ill-appearing, toxic-appearing or diaphoretic. HENT: Mouth/Throat: Mouth: Mucous membranes are moist. Eyes: Extraocular Movements: Extraocular movements intact. Cardiovascular: Rate and Rhythm: Tachycardia present. Rhythm irregular. Pulses: Normal pulses. Pulmonary: Effort: Pulmonary effort is normal. No respiratory distress. Breath sounds: No wheezing or rales. Chest: Chest wall: No tenderness. Abdominal: General: Abdomen is flat. Palpations: Abdomen is soft. Musculoskeletal: General: Tenderness present. Right lower leg: No edema. Left lower leg: No edema. Comments: L hip/thigh dressings c/d/I, mild TTP, postop edema not out of proportion; no obvious induration, erythema, warmth Skin: Findings: Lesion (R foot diabetic ulcer, mild surroudning erythema, TTP) present. Neurological: Mental Status: She is alert and oriented to person, place, and time. Psychiatric: Mood and Affect: Mood normal. Behavior: Behavior normal. ANATOMY/TUBES/LINES: N/A Running Summary, Assessment, and Plan Acute, acute on chronic, unstable/uncontrolled chronic problems/diagnoses: Comminuted subtrochanteric fracture of the left proximal femur NAYELY superimposed on CKD Metabolic acidosis Traumatic rhabdomyolysis Uncontrolled type 2 diabetes w/peripheral neuropathy + R diabetic foot ulcer. Prev cultures 01/26/25 bacteroides fragilis + MSSA. Ordered empiric abx. Afib RVR (on eliquis) Technically severe sepsis with hypotension, did not improve with Fib rate control. Possibly hemodynamic instability related to afib RVR vs anemia of unknown etiology Lactic acid elevation Acute anemia, no evident bleeding, incremented appropriately s/p 1u prbc. Pending hemolytic workup. -intertrochanteric femur fracture s/p ORIF with intramedullary nail insertion 03/21. Messaged by TANK WORKER due to hemodynamic instability. Morning of surgery pt hypotensive to SBP 80s, given 50g IV albumin. OR report with 100cc EBL. Postop in PACU pt BP similarly low to SBP 70s-80s with tachycardia to 130s. Treated with IV albumin 50g, IVF, ephedrine. Hgb 6.8, received 1u prbc and incremented to 8.0. Lactate 2.8. Pt assessed in PACU, Bps up to SBP 90s-low 100s; reported she was asymptomatic without chest pain, palpitations, SOB, lightheadedness, cough, f/c, n/v, d/c. Denied illness symptoms preceding admission including dysuria [per chart review, it was documented that pt gets hypotension with UTIs. UA collected preop with few bacteria and largely unimpressive otherwise]. -Collected blood cultures, R foot ulcer wound cx, bolused 500cc LR, started IVF. Pts HR came down to low 100s with IV metop push, started lopressor 25mg q8h, cardiology consulted. h/h q8h, no obvious source of bleeding so will monitor. Holding eliquis for now. -Follow up AM cortisol, follow up LFT (hemolytic workup), trend h/h, downtrend lactic acid. Follow cultures, cont empiric Vanc + zosyn pending culture data. Stable chronic problems affecting care, new non-acute diagnoses: Hyperlipidemia Hx Hypertension hypothyroidism As a result of the above findings & factors, the following mgmt was pursued: - as above - am labs, replace lytes prn - PT/OT/CM/SW as appropriate - delirium precautions: limit night-time awakening - DVT prophylaxis: brodie grover Complexity: Acute illness or injury posing a threat to life or body function (HIGH). Risk: Admission to hospital-level care was considered or occurred (HIGH). Anticipated Discharge - Date - tbd - Location - [facility] vs [facility] - Pending the following - PT/OT, clinical course Total time spent (which include face to face and non face to face encounters) in minutes: 75 SEP-1 CORE MEASURE DATA SIRS Criteria Sepsis Criteria Severe Sepsis Criteria Septic Shock Criteria Must meet 2: [] Temperature > 100.4 F (38 C) or < 96.8 F (36 C) [x] HR > 90 [] RR > 20 [x] WBC > 12 or < 4 or 10% bands Must be confirmed or suspected to move forward with diagnosis of sepsis. Must select at least one: [x] Bacterial Infection Confirmed or Suspected. [] Viral Infection Confirmed or Suspected. [] Fungal Infection Confirmed or Suspected. [] No infection present. Patient does not meet criteria for Sepsis. Must meet 1: [x] Lactate > 2 or [] Signs of Organ Dysfunction: - SBP < 90 or MAP < 65 - Altered mental status - Creatinine > 2 or increased from baseline - Urine Output < 0.5 ml/kg/hr - Bilirubin > 2 - INR > 1.5 - Platelets < 100,000 - Acute Respiratory Failure as evidenced by new need for NIPPV or mechanical ventilation [] No criteria met for Severe Sepsis. Must meet 1: [] Lactate = or > 4 or [x] SBP < 90 or MAP < 65 for at least two readings in the first hour after fluid bolus administration [] No criteria met for Septic Shock. No data found. Recent Labs 03/20/25 1159 03/20/25 2123 03/20/25 2140 03/21/25 0123 03/21/25 0216 03/21/25 1745 WBC 14.1* -- -- 12.8* -- 10.0 LACTATE -- -- -- -- -- 2.8* CREATININE 1.70* 1.32* -- -- 1.40* -- INR -- -- 1.1 -- -- -- PLT 279 -- -- 289 -- 158 Sepsis Identified at 0810 hours. Fluid Resuscitation Rational: Due to heart failure, portion of fluids given in form of antibiotics dilution with rate >125 ml/hr Infection Source: Unknown Reassessment exam: Pt not reassessed by me given 6 hour time frame would extend past paid working hours. Raffi Paulino MD Extended Emergency Contact Information Primary Emergency Contact: Hi Nelson Relation: Son Preferred language: Burmese Metal Bumper needed? No Secondary Emergency Contact: Melba Black [employer] Relation: Daughter Raffi Paulino MD Division of Hospitalist Medicine Inpatient Medical Services/[facility] [1] lactated Ringer's, 125 mL/hr [2] [Transfer Hold] atorvastatin, 20 mg, Oral, Nightly [Transfer Hold] gabapentin, 300 mg, Oral, BID [Transfer Hold] insulin glargine, 26 Units, SubCUTAneous, Nightly [Transfer Hold] insulin lispro, 0-6 Units, SubCUTAneous, TID WC And [Transfer Hold] insulin lispro, 0-6 Units, SubCUTAneous, Nightly [Transfer Hold] Lactobacillus, 4 tablet, Oral, Daily [Transfer Hold] levothyroxine, 25 mcg, Oral, qAM AC [Transfer Hold] metoprolol tartrate, 25 mg, Oral, BID sodium chloride 0.9%, 10 mL, IntraVENous, 2 times per day [Transfer Hold] trospium, 20 mg, Oral, qAM AC -Operative plans: No further plans for surgery -Weight bearing: RLE: WBAT LLE: WBAT RUE: WBAT LUE: WBAT -Range of motion parameters: ROM as tolerated -Immobilization: No immobilization needed -Antibiotics: 24 hours of post op antibiotics. -Dressings: Keep dressings clean dry and intact for 5 days post operatively, then ok to leave open to air if incision is without drainage. -Other: None -Diet: no restrictions from ortho standpoint -Labs: Daily labs -PT/OT -PT recommended outpatient/post discharge?: Yes, for basic ADLs -Ice & elevate -Medical management, dvt ppx and pain control per primary -DVT ppx recommended?: Per primary team -Follow-up with Dr Sullivan in 2 weeks -Ortho to follow. Golden Collado M.D. Orthopaedic Surgery PGY-3 03/21/2025 \\ Images from the original note were not included. Ortho Progress Note Patient: Hanna Nelson Date of : 1940 Acct: [id number] PCP: Dorothy Medrano Date of Admission: 03/20/2025 Date of Service: Pt seen/examined on 03/21/2025 SUBJECTIVE: No acute events overnight. Resting comfortably in bed. Pain well controlled. Denies paresthesias. Denies CP/SOB. Denies fevers or chills. Understands plan for surgery today and has no further questions. OBJECTIVE: General: alert and oriented to person, place and time, well-developed and well-nourished, in no acute distress VITALS: BP 143/66 (BP Location: Right arm, Patient Position: Lying) Pulse 115 Temp 36.6 C (97.9 F) (Temporal) Resp 12 Ht 1.797 m (5' 10.75") Wt 90.7 kg (200 lb) SpO2 99% BMI 28.09 kg/m MSK exam: LLE: SILT Sa/Bush/DP/SP/T diminished 2/2 baseline neuropathy. DF/EHL/PF intact DP pulse palpable; brisk capillary refill to toes Lab Results Component Value Date WBC 12.8 (H) 03/21/2025 HGB 9.4 (L) 03/21/2025 HCT 29.3 (L) 03/21/2025 PLT 289 03/21/2025 ALT 9 03/14/2025 AST 18 03/14/2025 NA 136 03/21/2025 K 4.5 03/21/2025 CL 107 03/21/2025 CREATININE 1.40 (H) 03/21/2025 BUN 38 (H) 03/21/2025 CO2 18 (L) 03/21/2025 TSH 1.71 03/14/2025 INR 1.1 03/20/2025 HGBA1C 6.8 (H) 03/20/2025 Lab Results Component Value Date RH POS 03/20/2025 ASSESSMENT AND PLAN: ASSESSMENT: 84 y.o. female with left intertrochanteric femur fracture with subtrochanteric extension PLAN: -Plan for OR 03/21/2025 for left hip cephalomedullary nail -NPO -Clear per medicine -Consented -Pre-op workup complete -Ice -APS consulted -Bedrest - Recommend mcgowan -Admitted to medicine -Pain control & medical management per primary -Please hold DVT prophylaxis in anticipation of OR -Please comment on clearance in case of OR, page ortho vp information technology with clearance status Alma Delia Bernardo MD Orthopaedic Surgery PGY-2 Epic Chat documented in this encounter [facility] 03-24-2025 Nurse Note H6 Discharge Note Patient Name: Hanna Nelson : 1940 Pt IV removed, Report called to [facility] and spoke to Ranjan. No further questions. Physical Examination: Vitals: 03/24/25 1221 BP: 122/80 Pulse: (!) 125 Resp: 16 Temp: 36.1 C (97 F) SpO2: 97% [facility] 03-24-2025 Nurse Note H6 Discharge Note Patient Name: Hanna Nelson : 1940 Pt IV removed, Report called to [facility] and spoke to Ranjan. No further questions. Physical Examination: Vitals: 03/24/25 1221 BP: 122/80 Pulse: (!) 125 Resp: 16 Temp: 36.1 C (97 F) SpO2: 97% Attempted x 2 nurses to obtain two sets of blood cultures but was unsuccessful. Notified rapid to help obtain blood culures x 2. Culture of the R plantar diabetic ulcer cultured. Pts son present during admission, pts son stated he will notify pts PCP of admission to [facility]. documented in this encounter [facility] 03-24-2025 Miscellaneous Notes Patient Choice Patient Name: HANNA NELSON Date of : 1940 All Providers Sent Referral Name: [employer]. Phone: [phone] Address: [address] [place] [address] MAR & Discharge med list transmitted and 7[address] in HENs to SNF [facility] via [facility] per TCC request. Care Management Progress Note Short Medical why still here: Medical stability for discharge to snf Planned Discharge Disposition: [facility] Facility. [facility] able to accept. Active discharge order noted. FUR TAILOR tasked to complete 7000 and send DCPW. Roundtrip utilized for transport. Dimitris Rae to transport at 5pm. TCC called son Hi and made him aware of transfer to [facility] at 5pm. All aware. Barriers/Today we still Wait: Attending completion of discharge workflow, Clinical stability. Transfer at 5pm. Length of Stay (Days): 4 GMLOS: 9.6 Noted dc plan for SNF placement, updated pt's home care agency via [facility] of plan to dc to SNF. Home care signing off at this time. Referral placed to SNF [facility] via [facility] per TCC request. Await review and response regarding ability to accept. TCC notified. Care Management Progress Note Short Medical why still here: Spoke with Pt, introduced self/role. Explained to patient that PT has recommended SNF placement, PT is agreeable, but wantes her son Hi to make the decision of where to go. [facility] called Hi, , he would like his mother to go to [facility], but he would like me to wait till 1pm today to put the referral in. Planned Discharge Disposition: [facility] Barriers/Today we still Wait: Attending completion of discharge workflow, Clinical stability, Patient/caregiver facility choice Length of Stay (Days): 3 GMLOS: 9.6 tasked FUR TAILOR to send a referral to [facility]. Social work introduced self to patient. Social work completed 30 day readmission survey at bedside with patient. Care Management Progress Note Short Medical why still here: Pt on H6 post op ORIF, FRACTURE, FEMUR. PT/OT needs to see for recommendations 1 unit of blood over night. Planned Discharge Disposition: [facility] Facility Barriers/Today we still Wait: Administering IV medications, Attending completion of discharge workflow, Clinical stability Length of Stay (Days): 2 GMLOS: 9.6 Spoke with pt, she was unsure what home care agency she is active with. Son verified home care agency is [facility]; referral started in [facility] to verify services, notify them of admission and keep them updated on dcp BP has improved with blood product. Medicine team at bedside to assess pt, states she looks better. Updated son Hi. Called report and in for transport. Unit of PRBC hanging, pt alert and talking. Updated son Hi over phone on status in pacu Order received for blood, unit released to blood bank. Pt awake and alert at this time, carrying conversation. Communicated critical lab Hgb 6.[address] Jackson, Dr Canales and Dr Collado, awaiting further orders. Notified Dr Jackson of BP, order for h+h received, attempting to place second IV and obtain bloodwork Notified Dr Jackson of BP, order received for 25mg IM Ephedrine. Second bag of albumin hanging per order Notified Dr Jackson of hypotension, orders for albumin received Post-op x-rays done, pt tolerated well, resting with eyes closed, awakens to voice. Pre-operative Diagnosis: Left IT femur fracture Post-operative Diagnosis: Same Procedure: Intramedullary Nailing Left Femur (CPT 22664) Components used: [employer] Intertan IMN, 10 mm diameter X 44 cm length Anesthesia: General Surgeon: Laurie Assistants: Tobias Estimated Blood Loss: 100ml Complications: None Specimens: No Medications: Ancef 2 g IV and TXA 1 g IV Operative findings: An unstable Left IT femur fracture. The fracture was reduced and solid internal fixation was achieved with the above cephalomedullary nail. History of present illness: Hanna is a 84 y.o. female admitted on 03/20/2025 11:09 AM with a Leftfemur fracture. she was cleared medically for surgical intervention. Operative report: I met with Hanna in the preoperative area prior to the procedure and discussed the surgical plan once again and answered all of her questions related to the procedure and the expected post-operative course. The risks of surgery were discussed including but not limited to the risks of medications given for surgery, the risk of blood loss during and after surgery that can lead to the need for blood products in certain situations, infection, damage to normal structures that can lead to terminologist problems of pain or dysfunction, wound healing complications, the possibility of nonunion, malunion and late or chronic pain were also discussed. In addition potentially life threatening complications at the time of surgery and after surgery were discussed including but not limited to deep vein thrombosis, pulmonary embolism, myocardial infarction, stroke and . I initialed her Left lower extremity and signed her consent form. she was then taken to the operating room. A general anesthetic was then given by the anesthesia staff and an endotracheal tube was placed by the anesthesia staff. At all times during the operative procedure the patient's head neck and airway were protected by the anesthesia staff. The patient was then transferred to the fracture table. Care was taken to identify and pad all bony prominences. Perineal post was place and the feet were placed in the fracture table boots and secured. The upper extremities were padded and positioned. Closed reduction of the fracture was then accomplished utilizing the fracture table and verified on fluroscopic imaging in AP, oblique and lateral planes. The Left lower extremity was then prepped and draped in the usual orthopedic sterile fashion. A surgical timeout was then performed with the patient's identification, the procedure to be performed being reviewed, verification that the patient had received preoperative antibiotics, and verification of the correct surgical side. This timeout was performed by myself, the circulating room nurse and the anesthesia staff. The patient's ASA was verified by the nurse pharmacist helper and the anesthesia staff. Fire risk was assessed. A 3.2 mm threaded guide pin was then placed through the skin proximal to the greater trochanter and advanced until it was centered just medial to the tip of the greater trochanter on the AP fluroscopic view and was centered midway between the anterior and posterior edges of the greater trochanter on the lateral view. When the position of the pin was verified it was advanced through the cortex and taken to the level of the lesser trochanter. Its intramedullary position was verified on AP and lateral fluroscopic images. The skin was then incised longitudinally around the pin and a soft tissue guide was advanced through the incision until it rested on the greater trochanteric tip. The proximal reamer was then placed over the guide pin and proximal reaming was carried out to the level of the lesser trochanter. The guide pin and reamer were removed and a ball tipped guide wire was placed into the femur through the previously reamed segment. The end of the guide wire had been bent slightly so that its position could be altered as it was advanced down the intramedullary canal to ensure it was centered on the AP and lateral fluroscopic views. Care was taken to avoid allowing the guide wire to rest on the anterior cortex distally. The guide wire once appropriately placed was measured to determine malick length. Reaming was then carried out over the guide wire up to a size 11 mm reamer where good isthmic chatter was encountered and it was decided to use a 10 mm diameter nail. After the reamer was removed the above mentioned nail was placed over the guide wire and fully seated within the femur. The outer proximal nail guide was then centered with respect to the head, neck and shaft of the femur on the lateral fluroscopic view. The guide sleeve for the lag/compression screw was placed through an incision in the lateral thigh and advanced until it rested on the lateral cortex of the femur. A 3.2 mm threaded guide pin was then advanced through the guide sleeve until it rested with the center of the femoral head subchondral bone on both the AP and lateral fluroscopic views. The guide pin was then measured to determine the length of the lag screw and compression screw. Once position of the pin was verified to be correct the compression screw slot was drilled and the anti-rotation bar was placed. Reaming was then carried out over the guide pin through the lag screw portion of the sleeve. Once reaming was complete the lag screw was placed over the guide pin and advanced until it was fully seated. The anti-rotation bar was then removed and the compression screw was placed and once engaged the fracture was compressed as verified on fluroscopic images. The outer guide was then detached from the nail and fluroscopic images were obtained in AP, oblique and lateral planes to ensure proper position of the nail and lag/compression screws. Fvy-Rjqb-Wxelznzr was felt to be less than 25 mm. Perfect fluroscopic circles were obtained distally through the malick and a skin incision was placed over the distal lateral thigh for locking screw placement. Blunt dissection was carried down to the outer cortex of the distal femur and drilling and measuring through a distal locking hole was accomplished. A 5mm locking screw was then placed. Its position was verified on fluroscopic imaging on AP, oblique and lateral planes. The incisions were then thoroughly irrigated with copious amounts of sterile saline. The subcutaneous tissues were closed with 2-0 vicryl and the skin with karen. Dry sterile dressing were applied. The patient was then transferred to her hospital bed, awakened from her anesthetic and then transported to the recovery room in stable condition. Post-operative plan: Additional Surgical Intervention: No further operative intervention needed Weight Bearing Instructions: Hanna will be weight bearing as tolerated on the left lower extremity. DVT Prophylaxis: LMWH will be started POD #1 and continued for 2 weeks post-operatively Antibiotics: No antibiotics needed Consults: Consult Rehab Dressings: Dry dressing change as needed for drainage Follow-up: follow-up as an outpatient in 2 weeks please call [phone] to make an appointment Any questions please page Ortho pager (resident vp information technology) or call my office at [phone] documented in this encounter [facility] 03-24-2025 Progress note Formatting of t his note might be different from the original. Patient Choice Patient Name: HANNA NELSON Date of : 1940 All Providers Sent [facility]: [phone] Address: [address] [place] [address] [facility] 03-24-2025 Progress note Formatting of t his note might be different from the original. MAR & Discharge med list transmitted and 7000 in HENs to [facility] via [facility] per [facility] request. [facility] 03-24-2025 Progress note Formatting of t his note might be different from the original. Care Management Progress Note Short Medical why still here: Medical stability for discharge to [facility] Planned Discharge Disposition: [facility] Facility. [facility] able to accept. Active discharge order noted. FUR TAILOR tasked to complete 7000 and send DCPW. Roundtrip utilized for transport. Dimitris Rae to transport at 5pm. [facility] called son Hi and made him aware of transfer to [facility] at 5pm. All aware. Barriers/Today we still Wait: Attending completion of discharge workflow, Clinical stability. Transfer at 5pm. Length of Stay (Days): 4 GMLOS: 9.6 [facility] 03-24-2025 Note [facility] 03-24-2025 Hospital course Narrative Discharge Summary Hanna Nelson : 1940 ADMIT DATE: 03/20/2025 DISCHARGE DATE: 03/24/2025 PRIMARY CARE PHYSICIAN: Dorothy Medrano VISIT STATUS: Admission CODE STATUS: Full Code DISCHARGE DIAGNOSES: Principal Problem: Closed fracture of left hip, initial encounter ([facility]) HOSPITAL COURSE: Patient is an 84-year-old female with past medical history of atrial fibrillation, type 2 diabetes, hyperlipidemia, hypertension, hypothyroidism, CKD stage III, peripheral neuropathy, diabetic foot ulcer, who was last seen in the hospital from 03/12/2025 until 03/15/2025 secondary to A-fib with RVR, NAYELY, NAGMA and hyperkalemia. Patient presented to the hospital on 03/20/2025 after falling last night. She lives alone and was unable to get up. She laid on the floor all night until home health nurse found her (being followed for the wound). She states it was a trip and fall type incident without any syncope. Did not hit her head. No loss of consciousness but she is unable Jalil Krystal much surrounding the event. She remains on Eliquis for her atrial fibrillation. She states that she can feel her atrial fibrillation (she does have palpitations) however she cannot remember having palpitations prior to the event. She has no current palpitations or chest pain. No new dyspnea or cough. No GI/ symptoms reported. While in the emergency department, she obtained a nerve block for pain control. Her vital signs waxed and waned. Heart rate ranged between (61-115). Blood pressure stable. Saturating well on room air. BMP revealed hyperchloremia, metabolic acidosis (bicarb 16), creatinine of 1.7 (NAYELY, baseline creatinine around 1). Glucose found to be 350. Anion gap 15. CK2 53. WBC count 14.1. Hemoglobin 10.3 (normally about 11) she does have a left shift. A1c 6.8. Urinalysis negative for obvious infection. - Chest x-ray personally reviewed and without acute abnormality - X-ray of the femur (left) showed degenerative joint disease - More proximally, x-ray of the left hip showed a acute, moderately comminuted subtrochanteric fracture of the left proximal femur with possible slight intertrochanteric component with shortening of the distal fracture fragment - EKG personally reviewed showing A-fib with RVR - X-ray of the right tib-fib showed no evidence of fracture Patient was started on LR for hydration. Metoprolol for A-fib. Patient was seen by Ortho who recommends surgical repair of hip on 03/21/2025. *Last TTE completed 03/15/2025 showing an EF of 57%, normal RV function. Mild to moderate global valvular disease" Cardiology seen the patient, recommendations noted above, continue to have elevated heart rate, reached to cardiology who increased metoprolol to 50 mg twice daily Geriatrics seen the patient, recommendations noted PT/OT recommends SNF Discussed with antibiotic stewardship team who recommends to DC vancomycin Patient will be discharged to SNF today in stable condition Interval History: 03/24/2025-No overnight issues. Patient is seen and examined She is comfortably resting in her bed without in any acute distress She reports no new acute complaints Son is at bedside Vitals reviewed, stable Labs reviewed, creatinine 1.32, hemoglobin 8.4 Case and plan discussed with patient and bedside nurse. All questions answered. Past Medical History: [Medical History] [Medical History] Past Medical History Diagnosis Date Arthritis Atrial fibrillation (HCC) Diabetes mellitus (HCC) Hyperlipidemia Hypertension Hypothyroidism Neuropathy Adult diet Regular; 4 carb choices (60 gm/meal) 24HR INTAKE/OUTPUT: No intake or output data in the 24 hours ending 03/24/25 1150 LABS: CBC: Recent Labs 03/22/25 0116 03/22/25 0910 03/23/25 0146 03/24/25 0057 WBC 9.1 -- 8.8 9.7 RBC 2.25* -- 2.84* 2.67* HGB 6.7* 8.2* 8.4* 7.9* HCT 20.6* 25.6* 26.1* 24.2* MCV 91.6 -- 91.9 90.6 RDW 16.0* -- 16.0* 15.6* PLT 157 -- 180 221 BMP: Recent Labs 03/22/25 0116 03/23/25 0146 03/24/25 0057 NA 133* 139 138 K 4.5 4.5 4.4 CL 105 108* 106 CO2 19* 22* 24 BUN 37* 28* 26* CREATININE 1.45* 1.32* 1.06 GLUCOSE 223* 206* 187* CALCIUM 8.0* 8.6* 8.7* ANIONGAP 9 9 8 LIVER PROFILE: Recent Labs 03/21/25 1745 03/22/25 0116 AST 22 28 ALT 12 9 BILITOT 1.2* 0.6 ALKPHOS 37* 36* PROT 6.4 5.8* PT/INR: No results for input(s): "PROTIME", "INR" in the last 72 hours. CARDIAC ENZYMES: No results for input(s): "TROPONINI" in the last 72 hours. Procalcitonin: Lab Results Component Value Date PROCAL 0.23 (H) 03/21/2025 COVID-19 PCR: No results for input(s): "COVID19" in the last 72 hours. Objective: Vitals: BP 152/95 (BP Location: Left arm, Patient Position: Sitting) Pulse 114 Temp (!) 35.8 C (96.5 F) (Temporal) Resp 16 Ht 5' 10.75" (1.797 m) Wt 200 lb (90.7 kg) SpO2 97% BMI 28.09 kg/m Pulse Ox: SpO2 Av % Min: 94 % Max: 98 % Supplemental O2: Physical Exam HENT: Head: Normocephalic and atraumatic. Mouth/Throat: Mouth: Mucous membranes are moist. Cardiovascular: Rate and Rhythm: Tachycardia present. Rhythm irregular. Pulmonary: Effort: Pulmonary effort is normal. Abdominal: Palpations: Abdomen is soft. Musculoskeletal: Comments: L hip/thigh dressings clean, dry, intact R foot diabetic ulcer, mild surroudning erythema, TTP Skin: General: Skin is warm and dry. Neurological: Mental Status: She is alert. Psychiatric: Mood and Affect: Mood normal. Medications: Scheduled PRN [Scheduled Meds] [Scheduled Meds] acetaminophen, 1,000 mg, Oral, TID apixaban, 5 mg, Oral, BID atorvastatin, 20 mg, Oral, Nightly cyanocobalamin, 1,000 mcg, Oral, Daily gabapentin, 300 mg, Oral, BID insulin glargine, 26 Units, SubCUTAneous, Nightly insulin lispro, 0-12 Units, SubCUTAneous, TID WC And insulin lispro, 0-12 Units, SubCUTAneous, Nightly Lactobacillus, 4 tablet, Oral, Daily levothyroxine, 25 mcg, Oral, qAM AC metoprolol tartrate, 25 mg, Oral, q8h piperacillin-tazobactam, 4,500 mg, IntraVENous, q6h trospium, 20 mg, Oral, qAM AC [PRN Meds] [PRN Meds] PRN medications: dextrose, dextrose, glucagon (rDNA), glucose, HYDROmorphone OR [DISCONTINUED] HYDROmorphone, melatonin, metoprolol, naloxone, ondansetron ODT OR ondansetron, oxyCODONE OR oxyCODONE, polyethylene glycol (PEG) 3350, sodium chloride Continuous [Continuous Meds] [Continuous Meds] Assessment Data: (CAT1) Reviewed 2 notes from different specialty or health system (each=1). (CAT1) Reviewed 3 or more labs/studies ordered by another provider not previously counted (each=1, panels count as 1). (CAT1) Ordered 3 or more new labs and/or studies (each=1, panels count as 1). (LOW: 2x CAT1 or independent historian MOD: 3x CAT1 or 1x CAT3 EXTENSIVE: 3x CAT1 and 1x CAT3) Acute, acute on chronic, unstable/uncontrolled chronic problems/diagnoses: Comminuted subtrochanteric fracture of the left proximal femur s/p ORIF with intramedullary nail insertion 03/21 Mechanical fall - geriatrics consulted, appreciated recs NAYELY superimposed on CKD, unclear baseline Cr - improved Metabolic acidosis Traumatic rhabdomyolysis Hypotension of unknown etiology, technically meeting septic shock criteria. However likely multifactorial: anemia + afib rvr. Bps sustained with rate control. Acute anemia, no evident bleeding apart from expected perioperative losses. Pt incremented appropriately s/p 1u prbc 03/21, required additional unit 03/22. Negative hemolysis workup Uncontrolled type 2 diabetes w/peripheral neuropathy and hyperglycemic R diabetic foot ulcer. Prev cultures 01/26/25 bacteroides fragilis + MSSA. Ordered empiric vanc + zosyn, follow up wound cx Afib RVR (on eliquis); improved Lactic acid elevation, resolved Stable chronic problems affecting care, new non-acute diagnoses: Hyperlipidemia Hx Hypertension Hypothyroidism T2DM with hyperglycemia [Medical History] [Medical History] Past Medical History Diagnosis Date Arthritis Atrial fibrillation (HCC) Diabetes mellitus (HCC) Hyperlipidemia Hypertension Hypothyroidism Neuropathy Plan As a result of the above findings & factors, the following mgmt was pursued: - Ortho following - Hgb 6.8 on 03/22, received 1u prbc and incremented to 8.0. - Reticulocyte index 0.9 c/w hypoproliferative marrow response. Ordered ferritin, B12, folate. If no correctable lab abnormalities would consult heme - Lantus 26 u nightly + med dose SSI - Vancomycin DC'd as per antibiotic stewardship team recommendations - Cont lopressor q8h -Eliquis resumed SIGNIFICANT DIAGNOSTIC STUDIES: XR foot 1 or 2 views right [[id number]] Collected: 03/21/252242 Order Status: Completed Updated: 03/21/252248 Narrative: Patient Name: HANNA NELSON : 1940 Exam Date/Time: 03/21/2025 19:44 Procedure: XR FOOT 1-2 VIEWS RIGHT Ordering Provider: PAULINO DENI Reason For Exam: diabetic ulcer L foot INDICATION: Diabetic ulcer of the left foot. VIEWS: Right foot-2 views COMPARISON: MRI right foot 01/26/2025 Impression: FINDINGS AND IMPRESSION: The bones are osteopenic. Pes planus noted. 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 Loss of joint space with marginal osteophytes tarsometatarsal joints. There is edema throughout the soft tissues of the foot. Many of the distal phalanges are not well evaluated due to positioning. Report Dictated on Electronically Signed By: Priscila Miramontes MD Electronically Signed Date/Time: 03/21/2025 10:48 PM EDT XR femur left 2+ views [[id number]] Collected: 03/21/25 0950 Order Status: Completed Updated: 03/21/25 1003 Narrative: Patient Name: HANNA NELSON : 1940 Exam Date/Time: 03/21/2025 09:38 Procedure: XR FEMUR 2+ VW LEFT Ordering Provider: PAULINO DENI Reason For Exam: post op HISTORY: postop Two views of the left femur show long intramedullary malick with compression screws to femoral head for ORIF of comminuted intertrochanteric/subtrochanteric fracture. Degenerative joint disease left knee, osteopenia, scattered arterial vascular calcification Report Dictated on Electronically Signed By: Linwood Simon MD Electronically Signed Date/Time: 03/21/2025 9:53 AM EDT FL GUIDANCE OR USE ONLY - NON RESULTABLE [[id number]] Resulted: 03/21/25 131 Order Status: Completed Updated: 03/21/251310 Narrative: There is no interpretation needed for this exam. XR femur left 2+ views [[id number]] Collected: 03/20/251938 Order Status: Completed Updated: 03/20/251940 Narrative: Patient Name: HANNA NELSON : 1940 Exam Date/Time: 03/20/2025 18:58 Procedure: XR FEMUR 2+ VW LEFT Ordering Provider: HOUSTON JOSHUA Reason For Exam: pre-op femur fx LEFT FEMUR 2 VIEWS CLINICAL INDICATION: pre-op femur fx TECHNIQUE: 2 views of the left femur, excluding the hip joint. COMPARISON: None. FINDINGS: No acute fracture or dislocation. Moderate degenerative change in all 3 joint compartments of the knee. Soft tissues grossly unremarkable. Impression: 1. No acute osseous abnormality. 2. 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 Report Dictated on Electronically Signed By: Rajesh Cristina MD Electronically Signed Date/Time: 03/20/2025 7:40 PM EDT [facility] SPECIFIC POCUS ORDER [[id number]] Resulted: 03/20/25 1109 Order Status: Completed Updated: 03/20/25 1447 Narrative: Jennifer Perry DO 03/20/2025 2:47 PM [facility] SPECIFIC POC[facility] ORDER Performed by: Jennifer Perry DO Authorized by: Jennifer Perry DO XR hip left 2 or 3 views [[id number]] Collected: 03/20/25 1324 Order Status: Completed Updated: 03/20/251331 Narrative: Patient Name: HANNA NELSON : 1940 Exam Date/Time: 03/20/2025 13:00 Procedure: XR HIP 2 OR 3 VW LEFT Ordering Provider: PERRY MICHAEL Reason For Exam: prob fx LEFT HIP RADIOGRAPH: CLINICAL INDICATION: prob fx. Left hip pain TECHNIQUE: AP and Lateral views of the left hip COMPARISON: Abdomen and pelvis 01/26/2025. Impression: FINDINGS/IMPRESSION: There is an acute moderately comminuted subtrochanteric fracture of the left proximal femur with possible slight intertrochanteric component, with shortening of the distal fracture fragment. The left femoral acetabular joint is maintained. The distal left femur is partially visualized and grossly unremarkable. Prior right femoral fixation partially visualized. No radiopaque foreign body. Report Dictated on Electronically Signed By: Josue Fields MD Electronically Signed Date/Time: 03/20/2025 1:30 PM EDT XR chest 1 view [[id number]] Collected: 03/20/25 1322 Order Status: Completed Updated: 03/20/251323 Narrative: Patient Name: HANNA NELSON : 1940 Exam Date/Time: 03/20/2025 13:00 Procedure: XR CHEST 1 VIEW Ordering Provider: PERRY MICHAEL Reason For Exam: pre op CHEST RADIOGRAPH CLINICAL INDICATION: pre op. Chest pain, Shortness of breath. TECHNIQUE: Single frontal view of the chest COMPARISON: Chest radiograph 03/12/2025 FINDINGS: Mediastinum: The heart and mediastinum are normal. Lungs: The lungs are clear. Pleura: There is no evidence for pleural effusion. There is no pneumothorax Bones and soft tissues: No acute fracture or dislocation. Mild degenerative changes of the visualized thoracic spine. Impression: No acute abnormality. Report Dictated on Electronically Signed By: Josue Fields MD Electronically Signed Date/Time: 03/20/2025 1:23 PM EDT XR tibia fibula 2 views right [[id number]] Collected: 03/20/25 1331 Order Status: Completed Updated: 03/20/251333 Narrative: Patient Name: HANNA NELSON : 1940 Exam Date/Time: 03/20/2025 13:00 Procedure: XR TIBIA FIBULA 2 VIEWS RIGHT Ordering Provider: PERRY MICHAEL Reason For Exam: trauma RIGHT TIBIA AND FIBULA RADIOGRAPH CLINICAL INDICATION: trauma. Right leg pain TECHNIQUE: Frontal and lateral views of the right tibia and fibula COMPARISON: None. Impression: FINDINGS/IMPRESSION: There is no evidence of fracture or dislocation of the right tibia and fibula. There is partially visualized intramedullary malick within the right distal femur. There is moderate degenerative disease of the right knee with joint space narrowing of the medial compartment, osteophytic spurring. There is no radiopaque foreign body. Report Dictated on Electronically Signed By: Josue Fields MD Electronically Signed Date/Time: 03/20/2025 1:33 PM EDT XR chest 1 view [[id number]] Collected: 03/12/25 1559 Order Status: Completed Updated: 03/12/25 1603 Narrative: [facility] 1940 [id number] Exam Date/Time: 03/12/2025 15:48 Procedure: XR CHEST 1 VIEW Ordering Provider: BEATTY KASSIDY Reason For Exam: chest pain CHEST X-RAY AP CLINICAL INDICATION: Chest pain AP radiograph of the chest was obtained. COMPARISON: January 26, 2025 FINDINGS: The cardiac silhouette is within normal limits. No focal consolidation or opacification is seen within the lungs. No pleural effusion or pneumothorax is identified. Degenerative changes of the thoracic spine are noted. Impression: No acute cardiopulmonary process. Report Dictated on Electronically Signed By: Celso Palacios MD Electronically Signed Date/Time: 03/12/2025 4:02 PM EDT CONSULTANTS: Orthopedics, cardiology, geriatrics, pharmacy RECOMMENDED NEXT STEPS: Transfer to SNF, follow-up with orthopedics, cardiology DISCHARGE MEDICATIONS: Medication List START taking these medications cyanocobalamin 1000 MCG tablet Commonly known as: Vitamin B-12 Take 1 tablet (1,000 mcg) by mouth daily. melatonin 3 MG tablet Take 1 tablet (3 mg) by mouth Nightly as needed for sleep. metoprolol succinate XL 50 MG 24 hr tablet Commonly known as: Toprol-XL Take 1 tablet (50 mg) by mouth 2 times daily. Do not crush or chew. oxyCODONE 5 MG immediate release tablet Commonly known as: Roxicodone Take 0.5 tablets (2.5 mg) by mouth every 4 hours as needed for moderate pain (4-6) for up to 5 days. CONTINUE taking these medications Alcohol Prep 70 % pads 1 Pad 3 times daily. atorvastatin 20 MG tablet Commonly known as: Lipitor Blood Glucose Monitor System w/Device kit Check glucose 3x daily Eliquis 5 MG tablet Generic drug: apixaban FreeStyle Javier 3 Plus Sensor misc 1 each every 15 days. gabapentin 300 MG capsule Commonly known as: Neurontin glucose blood test strip Use as instructed insulin degludec-liraglutide 100-3.6 UNIT-MG/ML pen Commonly known as: Xultophy insulin glargine 100 UNIT/ML injection Commonly known as: Lantus Inject 26 Units under the skin Nightly. Lactobacillus 0.05-0.05 MG tablet Take 4 tablets by mouth daily. Lancets Check glucose x3 daily levothyroxine 112 MCG capsule Commonly known as: Tirosint metFORMIN 500 MG tablet Commonly known as: Glucophage Take 1 tablet (500 mg) by mouth 2 times daily (with meals). oxybutynin 5 MG tablet Commonly known as: Ditropan semaglutide 2 MG/3ML solution pen-injector Commonly known as: Ozempic Inject 0.5 mg under the skin 1 (one) time per week. STOP taking these medications metoprolol tartrate 25 MG tablet Commonly known as: Lopressor Where to Get Your Medications These medications were sent to [facility] [address] [place] [id number] [place] [address] [facility] [id number] cyanocobalamin 1000 MCG tablet melatonin 3 MG tablet You can get these medications from any pharmacy Bring a paper prescription for each of these medications oxyCODONE 5 MG immediate release tablet Information about where to get these medications is not yet available Ask your nurse or doctor about these medications metoprolol succinate XL 50 MG 24 hr tablet DIET: Adult diet Regular; 4 carb choices (60 gm/meal) ACTIVITY: Up with assist COMPLEXITY OF FOLLOW UP: [] Moderate Complexity: follow up within 7-14 calendar days (57466) [] Severe Complexity: follow up within 7 calendar days (92450) FOLLOW UP TESTING, PENDING RESULTS OR REFERRALS AT TRANSITIONAL CARE VISIT: [] Yes [] No PENDING STUDIES: DISPOSITION: Skilled Facility FACILITY/HOME CARE AGENCY NAME: Follow up with Willi Sullivan MD [address] [facility] [place] [address] Schedule an appointment as soon as possible for a visit in 1 week(s) for your post op check Della Greco, 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 - NUCLEAR PLANT INSTRUMENT TECHNICIAN [address] [place] [address] [address] Schedule an appointment as soon as possible for a visit in 4 week(s) follow up for cognitive impairment Adolfo Brooks MD [address] [place] [address] [address] [facility] [address] Schedule an appointment as soon as possible for a visit in 1 week(s) INSTRUCTIONS TO MA/SW: Please call patient on day after discharge (must document patient contacted within 2 business days of discharge). FOLLOW UP QUESTIONS FOR MA/SW: 1. Did you get medications filled and taking them as instructed from discharge? 2. Are you following your discharge instructions from your hospital stay? 3. Please confirm patient is scheduled for a follow up appointment within the above time frame. DISCHARGE TIME: I spent 32 minutes on patient education, discharge planning SIGNED: Brice Mota MD 03/24/2025, 2:24 PM documented in this encounter [facility] 03-24-2025 Patient's home Note Noted dc plan for SNF placement, updated pt's home care agency via Careport of plan to dc to SNF. Home care signing off at this time. [facility] 03-23-2025 Note Referral placed to [facility] via [facility] per TCC request. Await review and response regarding ability to accept. TCC notified. [facility] 03-23-2025 Progress note Formatting of t his note might be different from the original. Referral placed to SNF [facility] via [facility] per TCC request. Await review and response regarding ability to accept. TCC notified. [facility] 03-23-2025 Progress note Formatting of t his note might be different from the original. Care Management Progress Note Short Medical why still here: Spoke with Pt, introduced self/role. Explained to patient that PT has recommended SNF placement, PT is agreeable, but wantes her son Hi to make the decision of where to go. TCC called Hi, , he would like his mother to go to [facility], but he would like me to wait till 1pm today to put the referral in. Planned Discharge Disposition: [facility] Facility Barriers/Today we still Wait: Attending completion of discharge workflow, Clinical stability, Patient/caregiver facility choice Length of Stay (Days): 3 GMLOS: 9.6 tasked FUR TAILOR to send a referral to [facility]. [facility] 03-22-2025 Progress note Formatting of t his note might be different from the original. Social work introduced self to patient. Social work completed 30 day readmission survey at bedside with patient. [facility] 03-22-2025 Progress note Formatting of t his note might be different from the original. Care Management Progress Note Short Medical why still here: Pt on H6 post op ORIF, FRACTURE, FEMUR. PT/OT needs to see for recommendations 1 unit of blood over night. Planned Discharge Disposition: [facility] Facility Barriers/Today we still Wait: Administering IV medications, Attending completion of discharge workflow, Clinical stability Length of Stay (Days): 2 GMLOS: 9.6 [facility] 03-22-2025 Patient's home Note Spoke with pt, she was unsure what home care agency she is active with. Son verified home care agency is [facility]; referral started in [facility] to verify services, notify them of admission and keep them updated on dcp [facility] 03-22-2025 Consult note Associated Order (s): IP CONSULT TO GERIATRICS [facility] Geriatric Medicine Inpatient Consult Service Admission Date: 03/20/2025 Admission Status: INPATIENT Chief Complaint: Fall Reason for Appointment Geriatrics consulted for mechanical fall elderly c/b hip fx" Assessment & Plan Principal Problem: Closed fracture of left hip, initial encounter (HCC) Fall -Multiple risk factors including decreased vision, cognitive deficits, diabetes, and possible medication side effect -Continue PT/OT as able while inpatient -Vitamin D ordered for tomorrow AM -Check orthostatic vital signs as able -Medications with associated fall risk include: atenolol, gabapentin, Insulin Acute pain due to trauma --Recommend scheduled acetaminophen 1g TID (if no contraindications) with PRN oxycodone (2.5-5mg) PRN for breakthrough Lab Results Component Value Date ALT 9 03/22/2025 AST 28 03/22/2025 ALKPHOS 36 (L) 03/22/2025 BILITOT 0.6 03/22/2025 --Continue PRN IV Dilaudid-wean as able -Optimize nonpharmacologic pain treatment modalities. -consider scheduling bowel regimen if using narcotics consistently Declining functional status --Related to fall, fracture, DM, recent hospitalizations --Continue PT/OT as able while inpatient --Anticipate d/c to SNF for ongoing daily PT/OT Cognitive impairment --Followed by [facility]. --Concern for Alzheimer's dementia --Son noted cognitive issues started about a year ago, worsening with time. --Lives home alone with strong support from her children and has private home health aids 2 hours a day/6 days a week --Per son, in process of moving patient to assisted living. --Follow up with [facility] as able-discussed with Hi-patient's son. Information added to discharge follow up instructions. At risk for delirium --Risk factors: pain, advanced age, acute illness, and baseline cognitive deficits --Encourage PO intake, time up in chair, family visits, supervised ambulation, and sleep hygiene --If agitated, assess for and consider treating for pain --QTc= 462 on 03/21/25 --No antipsychotic unless patient is danger to self/others/treatment --Start PRN melatonin at HS --Monitor for constipation/urinary retention - last BM unknown --Possible medication contributions: PRN Oxycodone PRN Dilaudid I spent total time of 85 minutes face to face with the patient and/or family discussing the diagnosis and importance of compliance with the treatment plan as well as documenting on the day of the visit. In addition, that total time includes the following: -Reviewing previous notes, -Reviewing labs, -Reviewing previous cognitive tests, -Obtaining and/or reviewing separately obtained history, -Ordering prescription medications, tests and procedures, -Documenting clinical information in the patients electronic record, and -Performing a medically appropriate exam and/or evaluation Subjective: HPI 84 y.o. year-old female with a past medical history of A. Fib., DM type 2, HLD, HTN, Hypothyroidism, CKD stage III, peripheral neuropathy, diabetic foot ulcer presented to [facility] ED on 01/18/25 after falling last night. She lives alone and was unable to get up. She laid on the floor all night until home health nurse found her (being followed for the wound). She states it was a trip and fall type incident without any syncope. Diagnosed with comminuted subtrochanteric fracture of the left proximal femur. Geriatrics ED screen: Do you (or your loved one) have problems with your memory that affect your (their) day to day activities or that you or your family notice most days?: No Do you (or loved one) live alone AND/OR Do you (they) need more help at home then you (they) have now or currently available?: No Have you (or loved one) been in the hospital in the last 3 months?: No Do you (or loved one) have trouble with your walking or balance? Or Have you (they) fallen recently?: Yes Do you (or loved one) take more than 5 medications or vitamins every day?: Yes When compared to others your (their) own age, are you (or loved one) in worse health?: No Total Score: 2 Quick Cognitive Screen (QCS): Nursing Delirium Screen (Nu-Desc): Nursing Delirium Symptom Checklist Total Score: 1 Conversation with patient: patient today reports she slept well last night. Reports her pain is to her left leg. Okay after pain medication, stating "it is not debilitating pain". Appetite has been good. # of falls in the past 3 months: 1 # of falls in the past year: 1 History of falls: No Fear of falling: yes Living situation: home alone in [facility]. Children help Assistive device: walker Dizziness: denies Pain: denies Incontinence/urgency (bowel, bladder, nocturia): denies Sleep (including use of medications/OTC for sleep): denies Alcohol/drugs: one beer with pizza once a month Mood: Denies any anxiety or depression Memory: denies Numbness: has neuropathy to feet and lower legs Vision: yes, wears reading glasses Hearing: denies DM: yes, checks MBS and children give insulin Weight/appetite: denies in weight loss/gain or change in appetite Progress notes reviewed: -s/p 1 unit of PRBC. Follow up retic count, consult hem if hypo proliferative -hypotensive of unknown etiology, likely multifactoral anemia, + afib with RVR -R diabetic foot ulcer-deescalate vs discontinue based on cx date. -seen by cardiology, continue metoprolol (just started last admission) for rate control. If needed, can uptitrate. Okay to hold OAC temporarily, but wound resume when felt safe from surgical perspective. -seen by ortho, s/p L CMN. WBAT PRN meds in past 24 hours: Pre-op medications Tylenol times 1 on 03/22 Dilaudid 0.5mg times 1 on 03/22 Oxycodone 5mg times 1 on 03/22 Oxycodone 2.5mg times 1 on 03/22 Labs: 03/22: Sodium 133, potassium 4.5, BUN 37, Creatinine 1.45 03/22; WBC 9.1, Hgb 8.2, platelets 157 Conversation with caregiver: sonHi -patient moved up from [place] in May, -lives in [facility]. Recently hired private home health aid 2 hours a day, 6 days a week. -Currently receiving home PT/OT -patient has not driven since May. Family had concerns with patient's driving -Family manages medications and make sure she takes them daily -Family does cooking, cleaning, shopping, bills, medication. -Short term memory is not very good. Forgets why she is in the hospital currently. -Family in process of moving patient to assisted living. Advance Care Planning Healthcare Power of Manager Functional: Yes, amber Do Financial Power of Manager Functional: probably Hi, but patient is not for sure Living Will:Yes Code Status: Full Code Allergies[1] Current Medications[2] Medical History[3] Surgical History[4] Social History Tobacco Use Smoking status: Former Current packs/day: 0.00 Types: Cigarettes Quit date: 1964 Years since quittin.6 Smokeless tobacco: Never Substance Use Topics Alcohol use: Yes Comment: drinks beer occasionally Social History Social History Narrative Not on file Family History Family History[5] Family Status Relation Name Status Father Ed Shue Alive Son Hi Nelson Alive No partnership data on file Review of Systems Constitutional: Positive for activity change. Negative for chills, diaphoresis, fatigue and fever. HENT: Negative for congestion and hearing loss. Eyes: Positive for visual disturbance (reading glasses). Respiratory: Negative for cough and shortness of breath. Cardiovascular: Negative for chest pain, palpitations and leg swelling. Gastrointestinal: Negative for abdominal distention, abdominal pain, constipation, diarrhea, nausea and vomiting. Genitourinary: Negative for difficulty urinating and dysuria. Musculoskeletal: Positive for arthralgias (left leg) and gait problem. Negative for back pain and joint swelling. Skin: Positive for wound (surgical). Neurological: Positive for weakness. Negative for dizziness, light-headedness and headaches. Neuropathy pain to lower legs and feet Psychiatric/Behavioral: Positive for confusion (short term memry loss). Negative for agitation, decreased concentration, dysphoric mood and sleep disturbance. Functional Status Prior to Admission: (I: Independent, A: Assisted, D: Dependent) ADLs I A D Notes Bathing [x] [] [] Dressing [x] [] [] Toileting [x] [] [] Transfers [x] [] [] Feeding [x] [] [] Ambulation [] [x] [] Assistive devices: walker IADLs I A D Telephone [x] [] [] Transportation [] [] [x] Family Shopping [] [] [x] Family Meal prep [] [x] [] Housework [] [] [x] Family Medications [] [] [x] Family Finances [] [] [x] Family Objective: BP 110/70 Pulse 85 Temp 36.4 C (97.5 F) (Temporal) Resp 17 Ht 5' 10.75" (1.797 m) Wt 200 lb (90.7 kg) SpO2 97% BMI 28.09 kg/m Intake/Output Summary (Last 24 hours) at 03/22/2025 1539 Last data filed at 03/22/2025 1500 Gross per 24 hour Intake 4408 ml Output 1800 ml Net 2608 ml Wt Readings from Last 3 Encounters: 03/20/25 200 lb (90.7 kg) 03/15/25 200 lb (90.7 kg) 02/23/25 200 lb (90.7 kg) Physical Exam Constitutional: General: She is not in acute distress. Appearance: She is not ill-appearing or toxic-appearing. Comments: Pleasant female sitting up in bed, on RA, NAD. Talkative and engaging HENT: Right Ear: External ear normal. Left Ear: External ear normal. Nose: Nose normal. No congestion. Eyes: General: Right eye: No discharge. Left eye: No discharge. Conjunctiva/sclera: Conjunctivae normal. Cardiovascular: Rate and Rhythm: Normal rate. Rhythm irregular. Pulmonary: Effort: Pulmonary effort is normal. No respiratory distress. Breath sounds: Normal breath sounds. No wheezing or rales. Comments: Anteriorly ausculated Abdominal: General: Bowel sounds are normal. There is no distension. Palpations: Abdomen is soft. Tenderness: There is no abdominal tenderness. There is no guarding. Musculoskeletal: Right lower leg: No edema. Left lower leg: Edema (left hip wth edema, dressing dry & intact) present. Skin: General: Skin is warm and dry. Neurological: Mental Status: She is alert. Comments: Poor short term memory, forgets why she is in the hospital Psychiatric: Mood and Affect: Mood normal. Behavior: Behavior normal. Labs and Imaging: Recent Results (from the past 24 hours) ECG 12 lead Collection Time: 03/21/25 4:16 PM Result Value Ref Range Heart Rate 132 bpm QRSD Interval 86 ms QT Interval 311 ms QTC Interval 462 ms P [place] 0 degrees QRS [place] -14 degrees T Wave [place] 0 degrees [place] Interval 0 ms POCT glucose meter Collection Time: 03/21/25 5:35 PM Result Value Ref Range Glucose 299 (H) 70 - 100 mg/dL CBC Collection Time: 03/21/25 5:45 PM Result Value Ref Range Auto WBC 10.0 3.6 - 10.7 10*3/uL RBC 2.70 (L) 3.80 - 5.20 10*6/uL Hemoglobin 8.0 (L) 11.7 - 16.0 g/dL Hematocrit 25.2 (L) 35.0 - 47.0 % MCV 93.3 77.0 - 99.0 fL MCH 29.6 26.0 - 34.0 pg MCHC 31.7 30.5 - 36.0 % RDW 15.7 (H) 11.5 - 15.0 % Platelets 158 140 - 440 10*3/uL MPV 10.9 9.0 - 12.7 fL Magnesium Collection Time: 03/21/25 5:45 PM Result Value Ref Range MAGNESIUM 1.7 1.6 - 2.6 mg/dL Lactic acid with reflex Collection Time: 03/21/25 5:45 PM Result Value Ref Range LACTIC ACID 2.8 (H) 0.5 - 2.2 mmol/L Blood gas, venous Collection Time: 03/21/25 5:45 PM Result Value Ref Range pH, Venous 7.330 7.330 - 7.430 pCO2, Venous 46.7 40.0 - 55.0 mm Hg pO2, Venous 29.2 mm Hg HCO3, Venous 24.1 23.0 - 27.0 mmol/L O2 Sat, Venous 43.1 % Base Excess, Venous -1.9 -3.0 - 3.0 mmol/L Hgb, blood gas 8.2 Screen only g/dl TCO2, Venous 25.5 24.0 - 28.0 mmol/L Source Of Oxygen None (Room Air) Amount Of Oxygen 0 Procalcitonin Test Collection Time: 03/21/25 5:45 PM Result Value Ref Range PROCALCITONIN 0.23 (H) <0.07 ng/mL Hepatic function panel Collection Time: 03/21/25 5:45 PM Result Value Ref Range BILIRUBIN, TOTAL 1.2 (H) <1.2 mg/dL BILIRUBIN, DIRECT 0.6 (H) <0.5 mg/dL ALKALINE PHOSPHATASE 37 (L) 40 - 150 U/L AST (SGOT) 22 <34 U/L ALT 12 <30 U/L ALBUMIN 3.7 3.4 - 4.8 g/dL TOTAL PROTEIN 6.4 6.4 - 8.3 g/dL Haptoglobin Collection Time: 03/21/25 5:45 PM Result Value Ref Range HAPTOGLOBIN 131 50 - 270 mg/dL Culture, Aerobic Bacteria with Gram Stain Collection Time: 03/21/25 6:36 PM Specimen: Foot, Left; ESwab Result Value Ref Range Culture Culture in progress Gram Stain Result No polymorphonuclear leukocytes seen Gram Stain Result No organisms seen POCT glucose meter Collection Time: 03/21/25 7:16 PM Result Value Ref Range Glucose 284 (H) 70 - 100 mg/dL Lactic acid with reflex Collection Time: 03/21/25 9:25 PM Result Value Ref Range LACTIC ACID 3.0 (H) 0.5 - 2.2 mmol/L Blood culture Site #2 - Suspected Infection Collection Time: 03/21/25 10:01 PM Specimen: Blood, Venous Result Value Ref Range Blood Culture Blood culture incubation started Blood culture Site #1 - Suspected Infection Collection Time: 03/21/25 10:16 PM Specimen: Blood, Venous Result Value Ref Range Blood Culture Blood culture incubation started CBC auto differential Collection Time: 03/22/25 1:16 AM Result Value Ref Range Auto WBC 9.1 3.6 - 10.7 10*3/uL RBC 2.25 (L) 3.80 - 5.20 10*6/uL Hemoglobin 6.7 (LL) 11.7 - 16.0 g/dL Hematocrit 20.6 (L) 35.0 - 47.0 % MCV 91.6 77.0 - 99.0 fL MCH 29.8 26.0 - 34.0 pg MCHC 32.5 30.5 - 36.0 % RDW 16.0 (H) 11.5 - 15.0 % Platelets 157 140 - 440 10*3/uL MPV 11.5 9.0 - 12.7 fL nRBC 0.0 0.0 - 2.0 /100 WBCs Neutrophils Relative 70.3 38.0 - 82.0 % Lymphocytes Relative 16.5 15.0 - 45.0 % Monocytes Relative 11.8 5.0 - 13.0 % Eosinophils Relative 0.4 0.0 - 6.0 % Basophils Relative 0.2 0.0 - 2.0 % Immature Grans % 0.8 0.0 - 2.0 % Neutrophils Absolute 6.4 1.8 - 7.5 10*3/uL Lymphocytes Absolute 1.5 1.0 - 4.3 10*3/uL Monocytes Absolute 1.1 (H) 0.0 - 0.9 10*3/uL Eosinophils Absolute 0.0 0.0 - 0.5 10*3/uL Basophils Absolute 0.0 0.0 - 0.2 10*3/uL Immature Grans Absolute 0.1 (H) <0.1 10*3/uL IPF 4 Basic metabolic panel Collection Time: 03/22/25 1:16 AM Result Value Ref Range SODIUM 133 (L) 136 - 145 mmol/L POTASSIUM 4.5 3.5 - 5.1 mmol/L CHLORIDE 105 98 - 107 mmol/L CARBON DIOXIDE 19 (L) 23 - 31 mmol/L UREA NITROGEN 37 (H) 9 - 23 mg/dL CREATININE 1.45 (H) 0.57 - 1.11 mg/dL GLUCOSE 223 (H) 82 - 115 mg/dL CALCIUM 8.0 (L) 8.8 - 10.0 mg/dL ANION GAP 9 3 - 13 mmol/L eGFR 35.4 (L) >60.0 mL/min/1.73m*2 Lactate dehydrogenase Collection Time: 03/22/25 1:16 AM Result Value Ref Range LACTATE DEHYDROGENASE 216 125 - 220 U/L Lactic acid with reflex Collection Time: 03/22/25 1:16 AM Result Value Ref Range LACTIC ACID 2.3 (H) 0.5 - 2.2 mmol/L Hepatic function panel Collection Time: 03/22/25 1:16 AM Result Value Ref Range BILIRUBIN, TOTAL 0.6 <1.2 mg/dL BILIRUBIN, DIRECT 0.2 <0.5 mg/dL ALKALINE PHOSPHATASE 36 (L) 40 - 150 U/L AST (SGOT) 28 <34 U/L ALT 9 <30 U/L ALBUMIN 3.2 (L) 3.4 - 4.8 g/dL TOTAL PROTEIN 5.8 (L) 6.4 - 8.3 g/dL Haptoglobin Collection Time: 03/22/25 1:16 AM Result Value Ref Range HAPTOGLOBIN 129 50 - 270 mg/dL Prepare RBC: 1 Units Collection Time: 03/22/25 4:24 AM Result Value Ref Range PRODUCT CODE Y2699Y22 Unit Number [id number] Unit ABO A Unit RH POS Crossmatch interpretation COMP Dispense Status Transfused Blood Expiration Date [id number] Product Blood Type 6200 Unit Volume 300 mL Lactic acid with reflex Collection Time: 03/22/25 6:05 AM Result Value Ref Range LACTIC ACID 2.1 0.5 - 2.2 mmol/L POCT glucose meter Collection Time: 03/22/25 8:15 AM Result Value Ref Range Glucose 220 (H) 70 - 100 mg/dL Hemoglobin and hematocrit, blood Collection Time: 03/22/25 9:10 AM Result Value Ref Range Hemoglobin 8.2 (L) 11.7 - 16.0 g/dL Hematocrit 25.6 (L) 35.0 - 47.0 % Cortisol Collection Time: 03/22/25 9:10 AM Result Value Ref Range CORTISOL 10.7 3.7 - 19.4 ug/dL Reticulocytes Collection Time: 03/22/25 9:10 AM Result Value Ref Range Retic Ct Pct 2.07 % POCT glucose meter Collection Time: 03/22/25 11:32 AM Result Value Ref Range Glucose 262 (H) 70 - 100 mg/dL Lab Results Component Value Date TSH 1.71 03/14/2025 No components found for: "B12" No results found for: "VITD25" Reviewed: active problem list, medication list, allergies, family history, notes from last several encounters, lab results Follow-up: will follow with you Ania Lauren Webb, 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 - NUCLEAR PLANT INSTRUMENT TECHNICIAN 03/22/25 3:39 PM [1] Allergies Allergen Reactions Tape Rash [2] Current Facility-Administered Medications: acetaminophen (Tylenol) tablet 650 mg, 650 mg, Oral, q6h PRN, 650 mg at 03/22/25 0117 OR acetaminophen (Tylenol) suppository 650 mg, 650 mg, Rectal, q6h PRN, Janet Rosemarie, DO [Held by provider] apixaban (Eliquis) tablet 5 mg, 5 mg, Oral, BID, Raffi Paulino MD atorvastatin (Lipitor) tablet 20 mg, 20 mg, Oral, Nightly, Janet Rosemarie, DO, 20 mg at 03/21/252006 dextrose 5 % infusion, 100 mL/hr, IntraVENous, PRN, Janet Padgettntire, DO dextrose 50 % solution 12.5 g, 12.5 g, IntraVENous, PRN, Janet Rosemarie, DO gabapentin (Neurontin) capsule 300 mg, 300 mg, Oral, BID, Janet Rosemarie, DO, 300 mg at 03/22/25 0847 glucagon (human recombinant) injection 1 mg, 1 mg, IntraMUSCular, PRN, Janet Rosemarie, DO glucose oral gel 15 g, 15 g, Oral, PRN, Janet Rosemarie, DO HYDROmorphone (Dilaudid) injection 0.25 mg, 0.25 mg, IntraVENous, q4h PRN OR HYDROmorphone (Dilaudid) injection 0.5 mg, 0.5 mg, IntraVENous, q4h PRN, Miguel Hui, DO, 0.5 mg at 03/22/25 0707 insulin glargine (Lantus) injection 26 Units, 26 Units, SubCUTAneous, Nightly, Janet Garciaire, DO, 26 Units at 03/21/25 2126 Insulin Lispro (Humalog) injection 0-12 Units, 0-12 Units, SubCUTAneous, TID WC, 6 Units at 03/22/25 1239 AND Insulin Lispro (Humalog) injection 0-12 Units, 0-12 Units, SubCUTAneous, Nightly, Raffi Paulino MD lactated Ringer's infusion, 75 mL/hr, IntraVENous, Continuous, Raffi Paulino MD, Last Rate: 75 mL/hr at 03/22/25 1349, 75 mL/hr at 03/22/25 1349 Lactobacillus 0.05-0.05 MG 4 tablet, 4 tablet, Oral, Daily, Janet Houston DO, 4 tablet at 03/22/25 0853 levothyroxine (Synthroid, Levoxyl) tablet 25 mcg, 25 mcg, Oral, qAM AC, Janet Houston, DO, 25 mcg at 03/22/25 0605 metoprolol tartrate (Lopressor) injection 5 mg, 5 mg, IntraVENous, q5 min PRN, Raffi Paulino MD, 5 mg at 03/21/25 1619 metoprolol tartrate (Lopressor) tablet 25 mg, 25 mg, Oral, q8h, Raffi Paulino MD, 25 mg at 03/22/25 0847 naloxone (Narcan) injection 0.4 mg, 0.4 mg, IntraVENous, PRN, Miguel Hui DO ondansetron ODT (Zofran-ODT) disintegrating tablet 4 mg, 4 mg, Oral, q8h PRN OR ondansetron (Zofran) injection 4 mg, 4 mg, IntraVENous, q6h PRN, Janet Houston DO oxyCODONE (Roxicodone) immediate release tablet 2.5 mg, 2.5 mg, Oral, q4h PRN, 2.5 mg at 03/22/25 0916 OR oxyCODONE (Roxicodone) immediate release tablet 5 mg, 5 mg, Oral, q4h PRN, Miguel Hui DO, 5 mg at 03/22/25 1331 piperacillin-tazobactam (Zosyn) 4,500 mg in sodium chloride 0.9 % 100 mL IVPB Mini-Bag Plus, 4,500 mg, IntraVENous, q6h, Raffi Paulino MD, Last Rate: 33.3 mL/hr at 03/22/25 1350, 4,500 mg at 03/22/25 1350 polyethylene glycol (PEG) 3350 (Miralax) packet 17 g, 17 g, Oral, Daily PRN, Miguel Lucero Pentz, DO sodium chloride 0.9 % infusion, 250 mL/hr, IntraVENous, PRN, Ross Kevin Lutz NP trospium (Sanctura) tablet 20 mg, 20 mg, Oral, qAM AC, Janet Houston, DO, 20 mg at 03/22/25 0605 vancomycin (Vancocin) 1,000 mg in sodium chloride 0.9 % 250 mL IVPB (Vial Mate), 1,000 mg, IntraVENous, q24h, Raffi Paulino MD [3] Past Medical History: Diagnosis Date Arthritis Atrial fibrillation (HCC) Diabetes mellitus (HCC) Hyperlipidemia Hypertension Hypothyroidism Neuropathy [4] Past Surgical History: Procedure Laterality Date BACK SURGERY CHOLECYSTECTOMY [5] Family History Problem Relation Name Age of Onset Diabetes Father Ed Shue Hypertension Father Ed Shue Diabetes Son Hi Nelson Hypertension Son Hi Nelson [facility] 03-22-2025 Consult note Associated Order (s): IP CONSULT TO GERIATRICS [facility] Geriatric Medicine Inpatient Consult Service Admission Date: 03/20/2025 Admission Status: INPATIENT Chief Complaint: Fall Reason for Appointment Geriatrics consulted for mechanical fall elderly c/b hip fx" Assessment & Plan Principal Problem: Closed fracture of left hip, initial encounter (HCC) Fall -Multiple risk factors including decreased vision, cognitive deficits, diabetes, and possible medication side effect -Continue PT/OT as able while inpatient -Vitamin D ordered for tomorrow AM -Check orthostatic vital signs as able -Medications with associated fall risk include: atenolol, gabapentin, Insulin Acute pain due to trauma --Recommend scheduled acetaminophen 1g TID (if no contraindications) with PRN oxycodone (2.5-5mg) PRN for breakthrough Lab Results Component Value Date ALT 9 03/22/2025 AST 28 03/22/2025 ALKPHOS 36 (L) 03/22/2025 BILITOT 0.6 03/22/2025 --Continue PRN IV Dilaudid-wean as able -Optimize nonpharmacologic pain treatment modalities. -consider scheduling bowel regimen if using narcotics consistently Declining functional status --Related to fall, fracture, DM, recent hospitalizations --Continue PT/OT as able while inpatient --Anticipate d/c to SNF for ongoing daily PT/OT Cognitive impairment --Followed by [facility]. --Concern for Alzheimer's dementia --Son noted cognitive issues started about a year ago, worsening with time. --Lives home alone with strong support from her children and has private home health aids 2 hours a day/6 days a week --Per son, in process of moving patient to assisted living. --Follow up with [facility] as able-discussed with Hi-patient's son. Information added to discharge follow up instructions. At risk for delirium --Risk factors: pain, advanced age, acute illness, and baseline cognitive deficits --Encourage PO intake, time up in chair, family visits, supervised ambulation, and sleep hygiene --If agitated, assess for and consider treating for pain --QTc= 462 on 03/21/25 --No antipsychotic unless patient is danger to self/others/treatment --Start PRN melatonin at HS --Monitor for constipation/urinary retention - last BM unknown --Possible medication contributions: PRN Oxycodone PRN Dilaudid I spent total time of 85 minutes face to face with the patient and/or family discussing the diagnosis and importance of compliance with the treatment plan as well as documenting on the day of the visit. In addition, that total time includes the following: -Reviewing previous notes, -Reviewing labs, -Reviewing previous cognitive tests, -Obtaining and/or reviewing separately obtained history, -Ordering prescription medications, tests and procedures, -Documenting clinical information in the patients electronic record, and -Performing a medically appropriate exam and/or evaluation Subjective: HPI 84 y.o. year-old female with a past medical history of A. Fib., DM type 2, HLD, HTN, Hypothyroidism, CKD stage III, peripheral neuropathy, diabetic foot ulcer presented to [facility] ED on 01/18/25 after falling last night. She lives alone and was unable to get up. She laid on the floor all night until home health nurse found her (being followed for the wound). She states it was a trip and fall type incident without any syncope. Diagnosed with comminuted subtrochanteric fracture of the left proximal femur. Geriatrics ED screen: Do you (or your loved one) have problems with your memory that affect your (their) day to day activities or that you or your family notice most days?: No Do you (or loved one) live alone AND/OR Do you (they) need more help at home then you (they) have now or currently available?: No Have you (or loved one) been in the hospital in the last 3 months?: No Do you (or loved one) have trouble with your walking or balance? Or Have you (they) fallen recently?: Yes Do you (or loved one) take more than 5 medications or vitamins every day?: Yes When compared to others your (their) own age, are you (or loved one) in worse health?: No Total Score: 2 Quick Cognitive Screen (QCS): Nursing Delirium Screen (Nu-Desc): Nursing Delirium Symptom Checklist Total Score: 1 Conversation with patient: patient today reports she slept well last night. Reports her pain is to her left leg. Okay after pain medication, stating "it is not debilitating pain". Appetite has been good. # of falls in the past 3 months: 1 # of falls in the past year: 1 History of falls: No Fear of falling: yes Living situation: home alone in [facility]. Children help Assistive device: walker Dizziness: denies Pain: denies Incontinence/urgency (bowel, bladder, nocturia): denies Sleep (including use of medications/OTC for sleep): denies Alcohol/drugs: one beer with pizza once a month Mood: Denies any anxiety or depression Memory: denies Numbness: has neuropathy to feet and lower legs Vision: yes, wears reading glasses Hearing: denies DM: yes, checks MBS and children give insulin Weight/appetite: denies in weight loss/gain or change in appetite Progress notes reviewed: -s/p 1 unit of PRBC. Follow up retic count, consult hem if hypo proliferative -hypotensive of unknown etiology, likely multifactoral anemia, + afib with RVR -R diabetic foot ulcer-deescalate vs discontinue based on cx date. -seen by cardiology, continue metoprolol (just started last admission) for rate control. If needed, can uptitrate. Okay to hold OAC temporarily, but wound resume when felt safe from surgical perspective. -seen by ortho, s/p L CMN. WBAT PRN meds in past 24 hours: Pre-op medications Tylenol times 1 on 03/22 Dilaudid 0.5mg times 1 on 03/22 Oxycodone 5mg times 1 on 03/22 Oxycodone 2.5mg times 1 on 03/22 Labs: 03/22: Sodium 133, potassium 4.5, BUN 37, Creatinine 1.45 03/22; WBC 9.1, Hgb 8.2, platelets 157 Conversation with caregiver: sonHi -patient moved up from [place] in May, -lives in [facility]. Recently hired private home health aid 2 hours a day, 6 days a week. -Currently receiving home PT/OT -patient has not driven since May. Family had concerns with patient's driving -Family manages medications and make sure she takes them daily -Family does cooking, cleaning, shopping, bills, medication. -Short term memory is not very good. Forgets why she is in the hospital currently. -Family in process of moving patient to assisted living. Advance Care Planning Healthcare Power of Manager Functional: Yes, amber Do Financial Power of Manager Functional: probably Hi, but patient is not for sure Living Will:Yes Code Status: Full Code Allergies[1] Current Medications[2] Medical History[3] Surgical History[4] Social History Tobacco Use Smoking status: Former Current packs/day: 0.00 Types: Cigarettes Quit date: 1965 Years since quittin.6 Smokeless tobacco: Never Substance Use Topics Alcohol use: Yes Comment: drinks beer occasionally Social History Social History Narrative Not on file Family History Family History[5] Family Status Relation Name Status Father Carlos Shue Alive Son Hi Nelson Alive No partnership data on file Review of Systems Constitutional: Positive for activity change. Negative for chills, diaphoresis, fatigue and fever. HENT: Negative for congestion and hearing loss. Eyes: Positive for visual disturbance (reading glasses). Respiratory: Negative for cough and shortness of breath. Cardiovascular: Negative for chest pain, palpitations and leg swelling. Gastrointestinal: Negative for abdominal distention, abdominal pain, constipation, diarrhea, nausea and vomiting. Genitourinary: Negative for difficulty urinating and dysuria. Musculoskeletal: Positive for arthralgias (left leg) and gait problem. Negative for back pain and joint swelling. Skin: Positive for wound (surgical). Neurological: Positive for weakness. Negative for dizziness, light-headedness and headaches. Neuropathy pain to lower legs and feet Psychiatric/Behavioral: Positive for confusion (short term memry loss). Negative for agitation, decreased concentration, dysphoric mood and sleep disturbance. Functional Status Prior to Admission: (I: Independent, A: Assisted, D: Dependent) ADLs I A D Notes Bathing [x] [] [] Dressing [x] [] [] Toileting [x] [] [] Transfers [x] [] [] Feeding [x] [] [] Ambulation [] [x] [] Assistive devices: walker IADLs I A D Telephone [x] [] [] Transportation [] [] [x] Family Shopping [] [] [x] Family Meal prep [] [x] [] Housework [] [] [x] Family Medications [] [] [x] Family Finances [] [] [x] Family Objective: BP 110/70 Pulse 85 Temp 36.4 C (97.5 F) (Temporal) Resp 17 Ht 5' 10.75" (1.797 m) Wt 200 lb (90.7 kg) SpO2 97% BMI 28.09 kg/m Intake/Output Summary (Last 24 hours) at 03/22/2025 1539 Last data filed at 03/22/2025 1500 Gross per 24 hour Intake 4408 ml Output 1800 ml Net 2608 ml Wt Readings from Last 3 Encounters: 03/20/25 200 lb (90.7 kg) 03/15/25 200 lb (90.7 kg) 02/23/25 200 lb (90.7 kg) Physical Exam Constitutional: General: She is not in acute distress. Appearance: She is not ill-appearing or toxic-appearing. Comments: Pleasant female sitting up in bed, on RA, NAD. Talkative and engaging HENT: Right Ear: External ear normal. Left Ear: External ear normal. Nose: Nose normal. No congestion. Eyes: General: Right eye: No discharge. Left eye: No discharge. Conjunctiva/sclera: Conjunctivae normal. Cardiovascular: Rate and Rhythm: Normal rate. Rhythm irregular. Pulmonary: Effort: Pulmonary effort is normal. No respiratory distress. Breath sounds: Normal breath sounds. No wheezing or rales. Comments: Anteriorly ausculated Abdominal: General: Bowel sounds are normal. There is no distension. Palpations: Abdomen is soft. Tenderness: There is no abdominal tenderness. There is no guarding. Musculoskeletal: Right lower leg: No edema. Left lower leg: Edema (left hip wth edema, dressing dry & intact) present. Skin: General: Skin is warm and dry. Neurological: Mental Status: She is alert. Comments: Poor short term memory, forgets why she is in the hospital Psychiatric: Mood and Affect: Mood normal. Behavior: Behavior normal. Labs and Imaging: Recent Results (from the past 24 hours) ECG 12 lead Collection Time: 03/21/25 4:16 PM Result Value Ref Range Heart Rate 132 bpm QRSD Interval 86 ms QT Interval 311 ms QTC Interval 462 ms P [place] 0 degrees QRS [place] -14 degrees T Wave [place] 0 degrees [place] Interval 0 ms POCT glucose meter Collection Time: 03/21/25 5:35 PM Result Value Ref Range Glucose 299 (H) 70 - 100 mg/dL CBC Collection Time: 03/21/25 5:45 PM Result Value Ref Range Auto WBC 10.0 3.6 - 10.7 10*3/uL RBC 2.70 (L) 3.80 - 5.20 10*6/uL Hemoglobin 8.0 (L) 11.7 - 16.0 g/dL Hematocrit 25.2 (L) 35.0 - 47.0 % MCV 93.3 77.0 - 99.0 fL MCH 29.6 26.0 - 34.0 pg MCHC 31.7 30.5 - 36.0 % RDW 15.7 (H) 11.5 - 15.0 % Platelets 158 140 - 440 10*3/uL MPV 10.9 9.0 - 12.7 fL Magnesium Collection Time: 03/21/25 5:45 PM Result Value Ref Range MAGNESIUM 1.7 1.6 - 2.6 mg/dL Lactic acid with reflex Collection Time: 03/21/25 5:45 PM Result Value Ref Range LACTIC ACID 2.8 (H) 0.5 - 2.2 mmol/L Blood gas, venous Collection Time: 03/21/25 5:45 PM Result Value Ref Range pH, Venous 7.330 7.330 - 7.430 pCO2, Venous 46.7 40.0 - 55.0 mm Hg pO2, Venous 29.2 mm Hg HCO3, Venous 24.1 23.0 - 27.0 mmol/L O2 Sat, Venous 43.1 % Base Excess, Venous -1.9 -3.0 - 3.0 mmol/L Hgb, blood gas 8.2 Screen only g/dl TCO2, Venous 25.5 24.0 - 28.0 mmol/L Source Of Oxygen None (Room Air) Amount Of Oxygen 0 Procalcitonin Test Collection Time: 03/21/25 5:45 PM Result Value Ref Range PROCALCITONIN 0.23 (H) <0.07 ng/mL Hepatic function panel Collection Time: 03/21/25 5:45 PM Result Value Ref Range BILIRUBIN, TOTAL 1.2 (H) <1.2 mg/dL BILIRUBIN, DIRECT 0.6 (H) <0.5 mg/dL ALKALINE PHOSPHATASE 37 (L) 40 - 150 U/L AST (SGOT) 22 <34 U/L ALT 12 <30 U/L ALBUMIN 3.7 3.4 - 4.8 g/dL TOTAL PROTEIN 6.4 6.4 - 8.3 g/dL Haptoglobin Collection Time: 03/21/25 5:45 PM Result Value Ref Range HAPTOGLOBIN 131 50 - 270 mg/dL Culture, Aerobic Bacteria with Gram Stain Collection Time: 03/21/25 6:36 PM Specimen: Foot, Left; ESwab Result Value Ref Range Culture Culture in progress Gram Stain Result No polymorphonuclear leukocytes seen Gram Stain Result No organisms seen POCT glucose meter Collection Time: 03/21/25 7:16 PM Result Value Ref Range Glucose 284 (H) 70 - 100 mg/dL Lactic acid with reflex Collection Time: 03/21/25 9:25 PM Result Value Ref Range LACTIC ACID 3.0 (H) 0.5 - 2.2 mmol/L Blood culture Site #2 - Suspected Infection Collection Time: 03/21/25 10:01 PM Specimen: Blood, Venous Result Value Ref Range Blood Culture Blood culture incubation started Blood culture Site #1 - Suspected Infection Collection Time: 03/21/25 10:16 PM Specimen: Blood, Venous Result Value Ref Range Blood Culture Blood culture incubation started CBC auto differential Collection Time: 03/22/25 1:16 AM Result Value Ref Range Auto WBC 9.1 3.6 - 10.7 10*3/uL RBC 2.25 (L) 3.80 - 5.20 10*6/uL Hemoglobin 6.7 (LL) 11.7 - 16.0 g/dL Hematocrit 20.6 (L) 35.0 - 47.0 % MCV 91.6 77.0 - 99.0 fL MCH 29.8 26.0 - 34.0 pg MCHC 32.5 30.5 - 36.0 % RDW 16.0 (H) 11.5 - 15.0 % Platelets 157 140 - 440 10*3/uL MPV 11.5 9.0 - 12.7 fL nRBC 0.0 0.0 - 2.0 /100 WBCs Neutrophils Relative 70.3 38.0 - 82.0 % Lymphocytes Relative 16.5 15.0 - 45.0 % Monocytes Relative 11.8 5.0 - 13.0 % Eosinophils Relative 0.4 0.0 - 6.0 % Basophils Relative 0.2 0.0 - 2.0 % Immature Grans % 0.8 0.0 - 2.0 % Neutrophils Absolute 6.4 1.8 - 7.5 10*3/uL Lymphocytes Absolute 1.5 1.0 - 4.3 10*3/uL Monocytes Absolute 1.1 (H) 0.0 - 0.9 10*3/uL Eosinophils Absolute 0.0 0.0 - 0.5 10*3/uL Basophils Absolute 0.0 0.0 - 0.2 10*3/uL Immature Grans Absolute 0.1 (H) <0.1 10*3/uL IPF 4 Basic metabolic panel Collection Time: 03/22/25 1:16 AM Result Value Ref Range SODIUM 133 (L) 136 - 145 mmol/L POTASSIUM 4.5 3.5 - 5.1 mmol/L CHLORIDE 105 98 - 107 mmol/L CARBON DIOXIDE 19 (L) 23 - 31 mmol/L UREA NITROGEN 37 (H) 9 - 23 mg/dL CREATININE 1.45 (H) 0.57 - 1.11 mg/dL GLUCOSE 223 (H) 82 - 115 mg/dL CALCIUM 8.0 (L) 8.8 - 10.0 mg/dL ANION GAP 9 3 - 13 mmol/L eGFR 35.4 (L) >60.0 mL/min/1.73m*2 Lactate dehydrogenase Collection Time: 03/22/25 1:16 AM Result Value Ref Range LACTATE DEHYDROGENASE 216 125 - 220 U/L Lactic acid with reflex Collection Time: 03/22/25 1:16 AM Result Value Ref Range LACTIC ACID 2.3 (H) 0.5 - 2.2 mmol/L Hepatic function panel Collection Time: 03/22/25 1:16 AM Result Value Ref Range BILIRUBIN, TOTAL 0.6 <1.2 mg/dL BILIRUBIN, DIRECT 0.2 <0.5 mg/dL ALKALINE PHOSPHATASE 36 (L) 40 - 150 U/L AST (SGOT) 28 <34 U/L ALT 9 <30 U/L ALBUMIN 3.2 (L) 3.4 - 4.8 g/dL TOTAL PROTEIN 5.8 (L) 6.4 - 8.3 g/dL Haptoglobin Collection Time: 03/22/25 1:16 AM Result Value Ref Range HAPTOGLOBIN 129 50 - 270 mg/dL Prepare RBC: 1 Units Collection Time: 03/22/25 4:24 AM Result Value Ref Range PRODUCT CODE [id number] Unit Number [id number] Unit ABO A Unit RH POS Crossmatch interpretation COMP Dispense Status Transfused Blood Expiration Date [id number] Product Blood Type 6200 Unit Volume 300 mL Lactic acid with reflex Collection Time: 03/22/25 6:05 AM Result Value Ref Range LACTIC ACID 2.1 0.5 - 2.2 mmol/L POCT glucose meter Collection Time: 03/22/25 8:15 AM Result Value Ref Range Glucose 220 (H) 70 - 100 mg/dL Hemoglobin and hematocrit, blood Collection Time: 03/22/25 9:10 AM Result Value Ref Range Hemoglobin 8.2 (L) 11.7 - 16.0 g/dL Hematocrit 25.6 (L) 35.0 - 47.0 % Cortisol Collection Time: 03/22/25 9:10 AM Result Value Ref Range CORTISOL 10.7 3.7 - 19.4 ug/dL Reticulocytes Collection Time: 03/22/25 9:10 AM Result Value Ref Range Retic Ct Pct 2.07 % POCT glucose meter Collection Time: 03/22/25 11:32 AM Result Value Ref Range Glucose 262 (H) 70 - 100 mg/dL Lab Results Component Value Date TSH 1.71 03/14/2025 No components found for: "B12" No results found for: "VITD25" Reviewed: active problem list, medication list, allergies, family history, notes from last several encounters, lab results Follow-up: will follow with you Ania Webb, 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 - NUCLEAR PLANT INSTRUMENT TECHNICIAN 03/22/25 3:39 PM [1] Allergies Allergen Reactions Tape Rash [2] Current Facility-Administered Medications: acetaminophen (Tylenol) tablet 650 mg, 650 mg, Oral, q6h PRN, 650 mg at 03/22/25 0117 OR acetaminophen (Tylenol) suppository 650 mg, 650 mg, Rectal, q6h PRN, Janet Rosemarie, DO [Held by provider] apixaban (Eliquis) tablet 5 mg, 5 mg, Oral, BID, Raffi Paulino MD atorvastatin (Lipitor) tablet 20 mg, 20 mg, Oral, Nightly, Janet Rosemarie, DO, 20 mg at 03/21/252006 dextrose 5 % infusion, 100 mL/hr, IntraVENous, PRN, Janet Rosemarie, DO dextrose 50 % solution 12.5 g, 12.5 g, IntraVENous, PRN, Janet Rosemarie, DO gabapentin (Neurontin) capsule 300 mg, 300 mg, Oral, BID, Janet Rosemarie, DO, 300 mg at 03/22/25 0847 glucagon (human recombinant) injection 1 mg, 1 mg, IntraMUSCular, PRN, Janet Rosemarie, DO glucose oral gel 15 g, 15 g, Oral, PRN, Janet Rosemarie, DO HYDROmorphone (Dilaudid) injection 0.25 mg, 0.25 mg, IntraVENous, q4h PRN OR HYDROmorphone (Dilaudid) injection 0.5 mg, 0.5 mg, IntraVENous, q4h PRN, Miguel Hui DO, 0.5 mg at 03/22/25 0707 insulin glargine (Lantus) injection 26 Units, 26 Units, SubCUTAneous, Nightly, Janet Rosemarie, DO, 26 Units at 03/21/256 Insulin Lispro (Humalog) injection 0-12 Units, 0-12 Units, SubCUTAneous, TID WC, 6 Units at 03/22/25 1239 AND Insulin Lispro (Humalog) injection 0-12 Units, 0-12 Units, SubCUTAneous, Nightly, Raffi Paulino MD lactated Ringer's infusion, 75 mL/hr, IntraVENous, Continuous, Raffi Paulino MD, Last Rate: 75 mL/hr at 03/22/25 1349, 75 mL/hr at 03/22/25 1349 Lactobacillus 0.05-0.05 MG 4 tablet, 4 tablet, Oral, Daily, Janet Houston DO, 4 tablet at 03/22/25 0853 levothyroxine (Synthroid, Levoxyl) tablet 25 mcg, 25 mcg, Oral, qAM AC, Janet Houston DO, 25 mcg at 03/22/25 0605 metoprolol tartrate (Lopressor) injection 5 mg, 5 mg, IntraVENous, q5 min PRN, Raffi Paulino MD, 5 mg at 03/21/25 1619 metoprolol tartrate (Lopressor) tablet 25 mg, 25 mg, Oral, q8h, Raffi Paulino MD, 25 mg at 03/22/25 0847 naloxone (Narcan) injection 0.4 mg, 0.4 mg, IntraVENous, PRN, Miguel Hui DO ondansetron ODT (Zofran-ODT) disintegrating tablet 4 mg, 4 mg, Oral, q8h PRN OR ondansetron (Zofran) injection 4 mg, 4 mg, IntraVENous, q6h PRN, Janet Houston DO oxyCODONE (Roxicodone) immediate release tablet 2.5 mg, 2.5 mg, Oral, q4h PRN, 2.5 mg at 03/22/25 0916 OR oxyCODONE (Roxicodone) immediate release tablet 5 mg, 5 mg, Oral, q4h PRN, Miguel Hui DO, 5 mg at 03/22/25 1331 piperacillin-tazobactam (Zosyn) 4,500 mg in sodium chloride 0.9 % 100 mL IVPB Mini-Bag Plus, 4,500 mg, IntraVENous, q6h, Raffi Paulino MD, Last Rate: 33.3 mL/hr at 03/22/25 1350, 4,500 mg at 03/22/25 1350 polyethylene glycol (PEG) 3350 (Miralax) packet 17 g, 17 g, Oral, Daily PRN, Miguel Lucero Pentz, DO sodium chloride 0.9 % infusion, 250 mL/hr, IntraVENous, PRN, Ross G Armstrong, JUNIOR PROGRAMMER trospium (Sanctura) tablet 20 mg, 20 mg, Oral, qAM AC, Janet Rosemarie, DO, 20 mg at 03/22/25 0605 vancomycin (Vancocin) 1,000 mg in sodium chloride 0.9 % 250 mL IVPB (Vial Mate), 1,000 mg, IntraVENous, q24h, Raffi Paulino MD [3] Past Medical History: Diagnosis Date Arthritis Atrial fibrillation (HCC) Diabetes mellitus (HCC) Hyperlipidemia Hypertension Hypothyroidism Neuropathy [4] Past Surgical History: Procedure Laterality Date BACK SURGERY CHOLECYSTECTOMY [5] Family History Problem Relation Name Age of Onset Diabetes Father Ed Shue Hypertension Father Ed Shue Diabetes Son Hi Nelson Hypertension Son Hi Nelson Associated Order(s): IP CONSULT TO CARDIOLOGY [facility] [place] Consult Note ATTESTATION: I, Dr. Brooks, saw and evaluated the patient. I personally obtained the larsen and critical portions of the history and physical exam. I reviewed the chart, the student's documentation, and discussed the patient with the student. I have edited the note to reflect my clinical findings and my assessment and plan. She is lucid and answering appropriately, but may be currently a bit confused, as she denied any knowledge of AF or of any of her medications. When seen in consultation twice in past 2 months (including last week) by my colleagues, she acknowledged having AF for several years. Arrangements have been made to have her follow up with us in the [place] office. She now presents with a mechanical fall and L hip fracture s/p ORIF. This and postop anemia and hypovolemiaa have precipitated AF RVR. Rates already improved after volume repletion. Continue metoprolol (which was just started last admission) for rate control. If needed, can uptitrate. Meanwhile address underlying drivers of tachycardia including pain, dehydration, anemia, etc. Okay to hold OAC temprorarily, but would resume when felt safe from surgical perspective. Adolfo Brooks MD [facility] Reason for Consult/Chief Complaint: afib rvr, hyoptension of uncertain etiology though pt asymptomatic Referring provider: Dr. 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 female with afib, T2DM, HLD, HTN, hypothyroidism, CKD stage 3, pe/ripheral neuropathy, and chronic diabetic foot ulcer who presented to the hospital on 03/20/25 after tripping at home the night prior and being unable to get back up. She states that she did not hit her head or have LOC at that time. In the ER it was found that she had Left intertrochanteric femur fracture and she had a ORIF with intramedullary nail on 03/21/25. Pre-op had SBPs in the 80s/90s, post op same but with HR in the 130s. Hgb at the time was also 6.8. She was given IV albumin, IVF, ephedrine, and 1u prbc with increase of SBP to 90s - low 100s. She remained asymptomatic during this time and denied chest pain, palpitations, SOB, lightheadedness, cough, f/c, or n/v. While in recovery from surgery, patient is being worked up for potential cause of anemia and hypotension. Cardiology is consulted for afib rvr accompanied by hypotension of unknown etiology. TTE obtained on 03/12/25 during a past hospitalization showed an EF of 57%, mild dilatation of LA, and mild to moderate global valvular regurgitation. ECG obtained on 03/20/25 showed afib rvr with a HR of 140, as well as prolonged QT, but no ischemic changes. She has had 2 additional ECGs since and both have noted no significant change. Patient is on Eliquis 5mg BID, which is currently being held. Patient was started on metoprolol 25mg Q8h, with HR decrease from 130s to 100s. INTERVAL HISTORY: Patient seen this morning resting in bed. She states that overall she is doing well despite pain in L hip. She had decent sleep last night, but is still feeling slightly fatigued. She reports that her felt palpitations occur about 1-2 a week, and that she did not have any of them preceding her fall on 03/19. She has been having these occasional palpitations for some time now but is unable to say when they exactly began, although a note in her chart dated 10/04/20 mentions paroxysmal atrial fibrillation documented on 10/26/17. 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 Assessment/Plan Hanna Nelson is a 84 y.o. female with afib, T2DM, HLD, HTN, hypothyroidism, CKD stage 3, pe/ripheral neuropathy, and chronic diabetic foot ulcer who presented to the hospital on 03/20/25 after tripping at home the night prior and being unable to get back up. Cardiology is consulted for afib rvr accompanied by hypotension of unknown etiology. AFIB RVR, Paroxysmal vs Persistent Patient has known afib that dates back to at least 10/26/17, currently paroxysmal vs persistent. Patient states that she has occasional palpitations but no other symptoms such as SOB, chest pain, lightheadedness, or stroke-like symptoms. - Continue metoprolol 25mg Q8h for rate control - Would prefer if patient continued held Eliquis 5mg BID, but with recent procedure and continuing anemia will refer restarting to surgical team - Pain management - Continue telemetry Asymptomatic Hypotension of Unknown Etiology Patient with low BPs pre and post op, but have since been soft normal. There was concern for shock or infection, and there is currently labs and cultures that are being run. She also had a Hgb of 6.8 and was given 1u prbc. Patient was asymptomatic during this time. Hypotension is unlikely due to cardiac concern and more likely is due some other cause such as recent surgery and/or anemia requiring transfusion. - Continue to monitor BP - Pressors and/or fluids PRN There is no need for further cardiac workup at this time. Cardiology will continue to follow telemetry, please reach out with any further questions or concerns Nicholas Gotti, M4 Patient staffed with Cardiology attending, Dr. Brooks Medications: Scheduled Meds[1] Infusion Medications: Continuous Meds[2] Physical Examination: Vitals: 03/22/25 0021 03/22/25 0419 03/22/25 0437 03/22/25 0531 BP: 104/59 102/63 114/61 104/59 BP Location: Right arm Left arm Left arm Patient Position: Sitting Lying Lying Pulse: 106 118 109 96 Resp: 18 12 18 16 Temp: (!) 35.6 C (96 F) 37.1 C (98.8 F) 37 C (98.6 F) (!) 35.6 C (96 F) TempSrc: Temporal Temporal Temporal Temporal SpO2: 97% 95% 97% 97% Weight: Height: Intake/Output Summary (Last 24 hours) at 03/22/2025 0701 Last data filed at 03/22/2025 0611 Gross per 24 hour Intake 4488 ml Output 1825 ml Net 2663 ml Wt Readings from Last 3 Encounters: 03/20/25 200 lb (90.7 kg) 03/15/25 200 lb (90.7 kg) 02/23/25 200 lb (90.7 kg) Physical Exam Constitutional: no distress. well nourished. well hydrated Psychiatric: A &O x 4. Medical insight poor NMT: Oral mucosa is pink and moist Neck: no JVD. Respiratory: Lungs are CTA Cardiac exam: Rhythm: irregular, consistent with known afib ; Normal S1 and S2 Murmur: none Other: No rub; no gallop Vasc: Peripheral pulses irregular Abdomen: soft, nl BS Extremities: no LE edema Skin: Warm to touch and well perfused Laboratory Tests: TROPONIN I, CONVENTIONAL SENSITIVITY CK Date Value Ref Range Status 03/20/2025 253 (H) 30 - 185 U/L Final TROPONIN I, HIGH SENSITIVITY Troponin HS Serial Baseline Date Value Ref Range Status 03/20/2025 13 <=14 ng/L Final Comment: In individuals presenting with symptoms > 2h, a baseline troponin <= 5 ng/L suggests acute cardiac injury is unlikely and further serial testing is generally not indicated. 03/12/2025 4 <=14 ng/L Final Comment: In individuals presenting with symptoms > 2h, a baseline troponin <= 5 ng/L suggests acute cardiac injury is unlikely and further serial testing is generally not indicated. 01/25/2025 10 <=14 ng/L Final Comment: In individuals presenting with symptoms > 2h, a baseline troponin <= 5 ng/L suggests acute cardiac injury is unlikely and further serial testing is generally not indicated. 2h Troponin HS (Serial 2nd Troponin) Date Value Ref Range Status 03/20/2025 12 <=14 ng/L Final Comment: Rising or falling troponin delta below 2 ng/L as compared to baseline value suggests that acute cardiac injury is unlikely. 03/12/2025 6 <=14 ng/L Final Comment: Rising or falling troponin delta below 2 ng/L as compared to baseline value suggests that acute cardiac injury is unlikely. 01/26/2025 18 (H) <=14 ng/L Final Comment: 2h troponin (2nd troponin) samples collected between 1h 40 min and 2h and 20 min of the baseline collection time can be utilized to interpret delta troponins as per [employer] algorithms. Samples collected outside this timeframe need to be interpreted clinically. Rising or falling troponin delta between 2 - 15 ng/L as compared to baseline value requires a 3rd serial troponin No results found for: TROPDELTBASE 4h Troponin HS (Serial 3rd Troponin) Date Value Ref Range Status 03/12/2025 6 <=14 ng/L Final Comment: 4h troponin (3rd troponin) samples collected between 1h 40 min and 2h and 20 min of the 2h troponin collection time can be utilized to interpret delta troponins as per [employer] algorithms. Samples collected outside this timeframe need to be interpreted clinically. Rising or falling troponin delta below 2 ng/L as compared to 2h troponin value suggests that acute cardiac injury is unlikely. 01/26/2025 24 (H) <=14 ng/L Final Comment: 4h troponin (3rd troponin) samples collected between 1h 40 min and 2h and 20 min of the 2h troponin collection time can be utilized to interpret delta troponins as per [employer] algorithms. Samples collected outside this timeframe need to be interpreted clinically. Rising or falling troponin delta between 2 - 15 ng/L as compared to 2h troponin value requires further evaluation. No results found for: TROPDELTSEC Recent Labs 03/20/25 1159 03/20/25 2123 03/21/25 0216 03/22/25 0116 NA 140 135* 136 133* K 5.0 4.5 4.5 4.5 CL 109* 106 107 105 CO2 16* 20* 18* 19* BUN 43* 41* 38* 37* CREATININE 1.70* 1.32* 1.40* 1.45* EGFR 29.3* 39.6* 36.9* 35.4* Recent Labs 03/20/25 1159 03/20/25 2140 03/21/25 0123 03/21/25 1147 03/21/25 1745 03/22/25 0116 WBC 14.1* -- 12.8* -- 10.0 9.1 HGB 10.3* < > 9.4* 6.8* 8.2 8.0* 6.7* HCT 31.3* -- 29.3* 21.4* 25.2* 20.6* MCV 91.8 -- 95.1 -- 93.3 91.6 PLT 279 -- 289 -- 158 157 < > = values in this interval not displayed. Lab Results Component Value Date HGBA1C 6.8 (H) 03/20/2025 Lab Results Component Value Date TSH 1.71 03/14/2025 No results found for: "CHOL" No results found for: "HDL" No results found for: "LDLCALC" No results found for: "TRIG" No results found for: "CHOLHDL" No results found for: LDLCHOLESTER No results for input(s): "BNP" in the last 72 hours. Recent Labs 03/20/25 2140 INR 1.1 Results from last 7 days Lab Units 03/21/25 1745 AST U/L 22 ALT U/L 12 No results found for: "IRON", "TIBC", "FERRITIN" Radiology: Cardiac Tests Personally Reviewed: Last EKG 03/20/25 ECG 12-LEAD 03/21/2025 7:09 PM (Final) Impression Atrial fibrillation Nonspecific T abnormalities, lateral leads Compared to ECG 03/20/2025 15:08:18 No significant change is noted Electronically Signed On 03-21-2025 19:09:08 EDT by Marcelle Dc Signed by: Marcelle Dc MD on 03/21/2025 7:09 PM Telemetry findings: afib, HR 100s Reports reviewed: Last Echo 03/12/25 TRANSTHORACIC ECHOCARDIOGRAM (TTE) COMPLETE (CONTRAST/BUBBLE/3D PRN) 03/15/2025 1:03 PM (Final) Interpretation Summary Left Ventricle: Left ventricle size is normal. Normal wall thickness. Normal left ventricular systolic function. EF by 2D Simpsons Biplane is 57%. Normal wall motion. Right Ventricle: Right ventricle size is normal. Normal systolic function. Aortic Valve: Mild (1+) regurgitation. Mitral Valve: Mild to moderate (1-2+) regurgitation. Tricuspid Valve: Mild to moderate (1-2+) regurgitation. RVSP is 35 mmHg. Left Atrium: Left atrium is mildly dilated..LA Vol Index is 37 ml/m2. Signed by: Vero Byrd MD on 03/15/2025 1:03 PM Last Cath No results found for this or any previous visit. Last Stress Test No results found for this or any previous visit. Last EP study No results found for this or any previous visit. EF BP Date Value Ref Range Status 03/15/2025 57 55 - 100 % Final MARCELLE SCORE: 142 MARCELLE Score Link Nicholas Gotti, M4 DATE of SERVICE: 03/22/2025 [1] [Held by provider] apixaban, 5 mg, Oral, BID atorvastatin, 20 mg, Oral, Nightly gabapentin, 300 mg, Oral, BID insulin glargine, 26 Units, SubCUTAneous, Nightly insulin lispro, 0-6 Units, SubCUTAneous, TID WC And insulin lispro, 0-6 Units, SubCUTAneous, Nightly Lactobacillus, 4 tablet, Oral, Daily levothyroxine, 25 mcg, Oral, qAM AC metoprolol tartrate, 25 mg, Oral, q8h piperacillin-tazobactam, 4,500 mg, IntraVENous, q6h trospium, 20 mg, Oral, qAM AC vancomycin, 1,000 mg, IntraVENous, q24h [2] lactated Ringer's, 75 mL/hr, Last Rate: 75 mL/hr (03/21/25 1838) Images from the original note were not included. Pharmacy Managed Vancomycin Dosing Service Consult Note Consult Date: 03/21/25 Patient Name: Hanna Nelson Allergies: Tape Age: 84 y.o. Sex: female Estimated body mass index is 28.09 kg/m as calculated from the following: Height as of this encounter: 1.797 m (5' 10.75"). Weight as of this encounter: 90.7 kg (200 lb). DW: 90.7 kg Lab Results Component Value Date CREATININE 1.40 (H) 03/21/2025 CREATININE 1.32 (H) 03/20/2025 BUN 38 (H) 03/21/2025 BUN 41 (H) 03/20/2025 WBC 10.0 03/21/2025 WBC 12.8 (H) 03/21/2025 Calculated CrCl: 36 mL/min (Cockcroft-Gault) Consulted By: Raffi Paulino Infectious Diagnosis: SSTI/sepsis (AUC Goal 400-600 mg/L*hr) Random Vancomycin Level Due: 03/23 Antimicrobials: Patient recently received an antibiotic (last 12 hours) Showing orders from other encounters Date/Time Action Medication Dose Rate 03/21/25 1748 New Bag ceFAZolin (Ancef) 2,000 mg in sodium chloride 0.9 % 100 mL IVPB 2,000 mg 200 mL/hr 03/21/25 0800 Given ceFAZolin (Ancef) injection 2 g Assessment/Plan: Doses, serum creatinine, and vancomycin levels interfaced automatically to [employer] and data has been analyzed and interpreted. Start Vancomycin 1750 mg ONCE then 1000mg q24 hours based on patient age, weight, renal function, and infectious diagnosis (11 mg/kg). Predicted AUC = 525 mg/L*hr (goal 400-600 mg/L*hr) PAUC = 77% (probability that AUC is >400 mg/L*hr) Pconc = 31% (probability that Ctrough is above 20 mcg/mL (toxicity)) Will assess level on 03/23 and adjust as appropriate. Trend serum creatinine. Orders placed. Thank you for this consult. Please secure text or call with questions. DATE: 03/21/25 TIME: 7:25 PM Brooke Fair RPh Clinical Pharmacist Available via Secure Chat Images from the original note were not included. Ortho Consult Patient: Hanna Nelson Date of : 1940 Acct: [id number] PCP: Dorothy Medrano Date of Admission: 03/20/2025 Date of Service: Pt seen/examined on 03/20/2025 Chief Complaint: Left hip pain History Of Present Illness: 84 y.o. female who presents with left hip pain after a fall from standing. She was ambulating in her living room and tripped. The patient was unable to get up and had to call for help. Denies significant pain besides left hip. Denies head trauma and loss of consciousness. Denies numbness and tingling in affected extremity. She has baseline diabetic neuropathy of the bilateral lower extremities with diminished sensation in the bilateral feet most prominent about the plantar foot in the tibial nerve distribution. PMH of T2DM now well controlled. Lives alone and is independent of ADLs but has help from family with iADLs. Recently admitted to [facility] for cellulitis. She has Charcot arthropathy of the bilateral feet and was recently fitted with a right foot brace by [employer] that she is still getting used to. She has a known plantar ulcer of the right foot which is being managed by wound care. It has not changed in. Send she denies fevers, chills, pain about the foot. Orthopaedic surgery history of right hip cephalomedullary nail approximately 15 years ago. Patient cannot recall the surgeon. Does not have a preference and is happy to see on-call [facility] surgeon. Patient ambulation status: mild difficulty and ambulates with: walker. Antiplatelets/Anticoagulation includes: Eliquis, last taken this morning. Hx from chart and/or Pt. Past Medical History: Medical History[1] Past Surgical History: Surgical History[2] Home Medications: Prior to Admission medications Medication Sig Start Date End Date Taking? Authorizing Provider Alcohol Swabs (Alcohol Prep) 70 % pads 1 Pad 3 times daily. 09/23/24 Herman Pepper DO apixaban (Eliquis) 5 MG tablet Take 5 mg by mouth 2 times daily. Historical Provider, atorvastatin (Lipitor) 20 MG tablet Take 20 mg by mouth daily. Historical Provider, Blood Glucose Monitoring Suppl (Blood Glucose Monitor System) w/Device kit Check glucose 3x daily 09/23/24 Herman Pepper DO Continuous Glucose Sensor (FreeStyle Javier 3 Plus Sensor) misc 1 each every 15 days. 12/24/24 Priscila Laguerre APRN - [facility] gabapentin (Neurontin) 300 MG capsule Take 300 mg by mouth 2 times daily. Historical Provider, glucose blood test strip Use as instructed 09/17/24 09/17/25 Damian Loza DO insulin degludec-liraglutide (Xultophy) 100-3.6 UNIT-MG/ML pen Inject 30 Units under the skin daily. Historical Provider, insulin glargine (Lantus) 100 UNIT/ML injection Inject 26 Units under the skin Nightly. 03/15/25 03/15/26 Deny Barton MD Lactobacillus 0.05-0.05 MG tablet Take 4 tablets by mouth daily. 02/02/25 Katey Beard MD Lancets Check glucose x3 daily 09/23/24 Herman Pepper DO levothyroxine (Tirosint) 112 MCG capsule Take by mouth every morning (before breakfast). Historical Provider, metFORMIN (Glucophage) 500 MG tablet Take 1 tablet (500 mg) by mouth 2 times daily (with meals). 09/24/24 04/22/25 Herman Pepper DO metoprolol tartrate (Lopressor) 25 MG tablet Take 1 tablet (25 mg) by mouth 2 times daily. 03/15/25 05/14/25 Deny Barton MD oxybutynin (Ditropan) 5 MG tablet Take 10 mg by mouth daily. Historical Provider, semaglutide (Ozempic) 2 MG/3ML solution pen-injector Inject 0.5 mg under the skin 1 (one) time per week. 12/24/24 12/24/25 Priscila Laguerre APRN - [facility] atenolol (Tenormin) 25 MG tablet Take 1 tablet (25 mg) by mouth 2 times daily. Patient not taking: Reported on 03/09/2025 12/05/24 03/15/25 Shane Rodriguez MD insulin glargine (Lantus) 100 UNIT/ML injection Inject 32 Units under the skin Nightly. 12/05/24 03/15/25 Shane Rodriguez MD Insulin Lispro (Humalog) 100 UNIT/ML solution injection Inject 8 Units under the skin 3 times daily (with meals). Patient not taking: Reported on 03/15/2025 02/01/25 03/15/25 Katey Beard MD sulfamethoxazole-trimethoprim (Bactrim) 400-80 MG tablet Take 1 tablet by mouth 2 times daily. 03/15/25 Historical Provider, Current Hospital Medications: Current Medications[3] Allergies: Tape Social History: Social History Socioeconomic History Marital status: Spouse name: Not on file Number of children: Not on file Years of education: Not on file Highest education level: Not on file Occupational History Not on file Tobacco Use Smoking status: Former Current packs/day: 0.00 Types: Cigarettes Quit date: 1964 Years since quittin.6 Smokeless tobacco: Never Vaping Use Vaping status: Never Used Substance and Sexual Activity Alcohol use: Yes Comment: drinks bee occasionally Drug use: Never Sexual activity: Not on file Other Topics Concern Not on file Social History Narrative Not on file Social Drivers of Health Financial Resource Strain: Not on file Food Insecurity: No Food Insecurity (12/03/2024) Hunger Vital Sign Worried About Running Out of Food in the Last Year: Never true Ran Out of Food in the Last Year: Never true Transportation Needs: No Transportation Needs (12/03/2024) PRAPARE - Transportation Lack of Transportation (Medical): No Lack of Transportation (Non-Medical): No Physical Activity: Not on file Stress: Not on file Social Connections: Not on file Intimate Partner Violence: Not At Risk (03/13/2025) Humiliation, Afraid, Rape, and Kick questionnaire Fear of Current or Ex-Partner: No Emotionally Abused: No Physically Abused: No Sexually Abused: No Housing Stability: Low Risk (12/03/2024) Housing Stability Vital Sign Unable to Pay for Housing in the Last Year: No Number of Times Moved in the Last Year: 1 Homeless in the Last Year: No Family History: Family History[4] Further Family History is noncontributory to this injury. REVIEW OF SYSTEMS: Review of Systems - General ROS: negative for - chills, fatigue, fever, malaise or night sweats Psychological ROS: negative Ophthalmic ROS: negative ENT ROS: negative for - headaches or sore throat Hematological and Lymphatic ROS: negative for - bleeding problems or blood clots Respiratory ROS: no cough, shortness of breath, or wheezing Cardiovascular ROS: no chest pain or dyspnea on exertion Gastrointestinal ROS: negative Musculoskeletal ROS: See HPI Neurological ROS: negative for - bowel and bladder control changes, gait disturbance or numbness/tingling All other systems reviewed and are negative PHYSICAL EXAM: BP 143/66 (BP Location: Right arm, Patient Position: Lying) Pulse 115 Temp 36.6 C (97.9 F) (Temporal) Resp 12 Ht 1.797 m (5' 10.75") Wt 90.7 kg (200 lb) SpO2 99% BMI 28.09 kg/m GENERAL APPEARANCE: Awake and oriented x 4/4. No acute distress, except appropriate to injury. MOOD AND AFFECT: Calm appropriate to situation GAIT AND STATION: Patient is in bed and unable to ambulate secondary to known injury. COORDINATION and BALANCE: Patient is grossly coordinated unable to ambulate secondary to known injury. Right Upper Extremity: -No obvious pain or deformity to inspection with normal joint range of motion, stability, and muscle strength except noted below -No TTP over clavicle, shoulder, humerus, elbow, forearm, wrist, hand, or fingers -TTP: nontender throughout extremity -Radial pulse palpable -SILT in radial/median/ ulnar nerve distributions -Motor + AIN/PIN/ulnar nerve functions -Skin intact except where noted below -Painless pROM at shoulder/elbow/wrist Atraumatic. There is deformities of the IP joints of the bilateral hands secondary to arthritis. These are nonpainful and unchanged from her baseline Left Upper Extremity: -No obvious pain or deformity to inspection with normal joint range of motion, stability, and muscle strength except noted below -No TTP over clavicle, shoulder, humerus, elbow, forearm, wrist, hand, or fingers -TTP: nontender throughout extremity -Radial pulse palpable -SILT in radial/median/ ulnar nerve distributions -Motor + AIN/PIN/ulnar nerve functions -Skin intact except where noted below -Painless pROM at shoulder/elbow/wrist Atraumatic. There is deformity of the IP joints of the bilateral hands secondary to arthritis. These are nonpainful and unchanged from her baseline Left lower Extremity: -No obvious pain or deformity to inspection with normal joint range of motion, stability, and muscle strength except noted below. Extremity shortened and externally rotated. Skin over lateral hip is clean and dry without signs of wounds or breakdown. -No TTP over knee, tibia, lateral mal, medial mal, calc, midfoot, forefoot -TTP: hip -Pulse: DP Palpable -SILT in the superficial peroneal, deep peroneal, tibial, sural, saphenous nerve distributions -Motor function of tibialis anterior, extensor hallucis longus, and gactrocsoleus complex intact -Skin intact except where noted below -Painless pROM at knee/ankle - + logroll No ecchymosis, laceration, abrasion over the left hip. There is pain with logroll and passive range of motion. There is a chronic deformity of the left ankle which is in valgus secondary to her baseline Charcot arthropathy. Patient states that this is nonpainful and not changed from her baseline. There is dense neuropathy about the foot with most diminished sensation in the tibial nerve distribution however is grossly sensory intact about the foot and is able to feel the examiner touching her. She denies any new sensory changes since her fall. 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 There is no expressible purulence or drainage from the wound and no deep fluctuance. There is no warmth or proximal streaking erythema associated with the ulcer. Right lower Extremity: -No obvious pain or deformity to inspection with normal joint range of motion, stability, and muscle strength except noted below -No TTP over pelvis, hip, thigh, knee, tibia, lateral mal, medial mal, calc, midfoot, forefoot -TTP: Nontender throughout extremity -Pulse: DP Palpable, -SILT in the superficial peroneal, deep peroneal, tibial, sural, saphenous nerve distributions -Motor function of quad, tibialis anterior, extensor hallucis longus, and gactrocsoleus complex intact -Skin intact except where noted below -Painless pROM at hip/knee/ankle Atraumatic. There is an ulcer over the plantar midfoot which is unchanged from the patient's baseline. She is being treated for this ulcer. There is no expressible purulence or active drainage no associated erythema or induration and no proximal streaking erythema. Labs: CBC: Lab Results Component Value Date WBC 14.1 (H) 03/20/2025 RBC 3.41 (L) 03/20/2025 BMP: Lab Results Component Value Date GLUCOSE 350 (H) 03/20/2025 CO2 16 (L) 03/20/2025 BUN 43 (H) 03/20/2025 CREATININE 1.70 (H) 03/20/2025 CALCIUM 9.4 03/20/2025 PT/INR: No results found for: "PT", "INR", "APTT" Type and Screen: No results found for: "RH", "LABANTI" CRP: No results found for: "CRP" ESR: No results found for: SEDRATE HgBA1c: No components found for: LABA1C The above labs were reviewed by me. Radiology: The below images were independently reviewed and interpreted XR: Pelvis: There is an acute comminuted left intertrochanteric fracture with subtrochanteric extension. There is posterior displacement of the proximal fragment. There is no other acute fracture or dislocation of bony pelvis. Pubic symphysis and bilateral SI joints not appear widened. There is a remote appearing fractures of the bilateral inferior pubic rami with evidence of malunion. There is a right hip cephalomedullary nail that appears to be well-fixed without evidence of hardware failure failure fracture or displacement and associated heterotopic ossification about the right sided greater trochanter. Left femur: There is no acute fracture or dislocation of the left distal femur. There is osteoarthritis with joint space narrowing about the left knee and what appears to be remote malunion of the left proximal fibula. Right tibia/fibula: There is no acute fracture or dislocation of the right tibia and fibula. There is osteoarthritis of the right knee with medial compartment joint space narrowing and associated osteophytes and squaring of the femoral condyles. Distal aspect of right hip cephalomedullary nail is visualized in the distal femur. Radiology report reviewed. ASSESSMENT: 84 y.o. female with left intertrochanteric femur fracture with subtrochanteric extension PLAN: -Plan for OR 03/21/2025 for left hip cephalomedullary nail -NPO at Midnight 03/21/2025 -Clear per medicine pending -Consented -Pre-op workup in process -Ice -Bedrest - Recommend mcgowan -Admitted to medicine -Pain control & medical management per primary -Please hold DVT prophylaxis in anticipation of OR -Please comment on clearance in case of OR, page ortho vp information technology with clearance status Alma Delia Bernardo MD Orthopaedic Surgery PGY-2 Epic Chat I saw and evaluated the patient, participating in the larsen portions of the service. I reviewed the resident s note. I agree with the resident s findings and plan. I met with Hanna to discuss my recommendation for surgery, the other treatment options available and the risks of the surgery itself as well as to detail the expected post-operative course. I explained the the injury required placement of malick within the femur. The risks of the proposed above procedure were discussed including but not limited to the risks of reactions to medications given for surgery, the risk of blood loss, infection, damage to normal structures that can lead to long-term problems of pain and/or dysfunction, need for additional procedures, painful or prominent hardware which could require removal, failure of fixation which would require revision,the possibility of fracture nonunion, malunion and late and/or chronic. In addition potentially life threatening complications (DVT, PE, MO, stroke, and even ) at the time of surgery and after surgery were discussed. Hanna understands that no guarantees with regard to surgical outcome can be given and none were implied. Hanna was given the opportunity to ask questions and consider all of the treatment options available. Hanna would like to proceed with the above mentioned procedure. Willi Sullivan MD [1] Past Medical History: Diagnosis Date Arthritis Atrial fibrillation (HCC) Diabetes mellitus (HCC) Hyperlipidemia Hypertension Hypothyroidism Neuropathy [2] Past Surgical History: Procedure Laterality Date BACK SURGERY CHOLECYSTECTOMY [3] Current Facility-Administered Medications: acetaminophen (Tylenol) tablet 650 mg, 650 mg, Oral, q6h PRN OR acetaminophen (Tylenol) suppository 650 mg, 650 mg, Rectal, q6h PRN, Janet Garciaire, DO atorvastatin (Lipitor) tablet 20 mg, 20 mg, Oral, Nightly, Janet Garciaire, DO dextrose 5 % infusion, 100 mL/hr, IntraVENous, PRN, Janet Garciaire, DO dextrose 50 % solution 12.5 g, 12.5 g, IntraVENous, PRN, Janet Padgettntire, DO gabapentin (Neurontin) capsule 300 mg, 300 mg, Oral, BID, Janet Padgettntire, DO glucagon (human recombinant) injection 1 mg, 1 mg, IntraMUSCular, PRN, Janet Garciaire, DO glucose oral gel 15 g, 15 g, Oral, PRN, Janet Padgettntire, DO insulin glargine (Lantus) injection 26 Units, 26 Units, SubCUTAneous, Nightly, Janet Rosemarie, DO Insulin Lispro (Humalog) injection 0-6 Units, 0-6 Units, SubCUTAneous, TID WC AND Insulin Lispro (Humalog) injection 0-6 Units, 0-6 Units, SubCUTAneous, Nightly, Janet Padgettntire, DO Lactobacillus 0.05-0.05 MG 4 tablet, 4 tablet, Oral, Daily, Janet Rosemarie, DO [START ON 03/21/2025] levothyroxine (Synthroid, Levoxyl) tablet 25 mcg, 25 mcg, Oral, qAM AC, Janet Rosemarie, DO metoprolol tartrate (Lopressor) tablet 25 mg, 25 mg, Oral, BID, Janet Rosemarie, DO ondansetron ODT (Zofran-ODT) disintegrating tablet 4 mg, 4 mg, Oral, q8h PRN OR ondansetron (Zofran) injection 4 mg, 4 mg, IntraVENous, q6h PRN, Janet Padgettntire, DO polyethylene glycol (PEG) 3350 (Miralax) packet 17 g, 17 g, Oral, Daily PRN, Janet Rosemarie, DO [START ON 03/21/2025] semaglutide (Ozempic) injection 0.5 mg, 0.5 mg, SubCUTAneous, Weekly, Janet Rosemarie, DO [START ON 03/21/2025] trospium (Sanctura) tablet 20 mg, 20 mg, Oral, qAM AC, Janet Rosemarie, DO [4] Family History Problem Relation Name Age of Onset Diabetes Father Ed Shue Hypertension Father Ed Shue Diabetes Son Hi Nelson Hypertension Son Hi Nelson documented in this encounter [facility] 03-22-2025 Consult note Associated Order (s): IP CONSULT TO CARDIOLOGY [facility] [place] [facility] Note ATTESTATION: I, Dr. Brooks, saw and evaluated the patient. I personally obtained the larsen and critical portions of the history and physical exam. I reviewed the chart, the student's documentation, and discussed the patient with the student. I have edited the note to reflect my clinical findings and my assessment and plan. She is lucid and answering appropriately, but may be currently a bit confused, as she denied any knowledge of AF or of any of her medications. When seen in consultation twice in past 2 months (including last week) by my colleagues, she acknowledged having AF for several years. Arrangements have been made to have her follow up with us in the [place] office. She now presents with a mechanical fall and L hip fracture s/p ORIF. This and postop anemia and hypovolemiaa have precipitated AF RVR. Rates already improved after volume repletion. Continue metoprolol (which was just started last admission) for rate control. If needed, can uptitrate. Meanwhile address underlying drivers of tachycardia including pain, dehydration, anemia, etc. Okay to hold OAC temprorarily, but would resume when felt safe from surgical perspective. Adolfo Brooks MD [facility] Reason for Consult/Chief Complaint: afib rvr, hyoptension of uncertain etiology though pt asymptomatic Referring provider: Dr. 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 female with afib, T2DM, HLD, HTN, hypothyroidism, CKD stage 3, pe/ripheral neuropathy, and chronic diabetic foot ulcer who presented to the hospital on 03/20/25 after tripping at home the night prior and being unable to get back up. She states that she did not hit her head or have LOC at that time. In the ER it was found that she had Left intertrochanteric femur fracture and she had a ORIF with intramedullary nail on 03/21/25. Pre-op had SBPs in the 80s/90s, post op same but with HR in the 130s. Hgb at the time was also 6.8. She was given IV albumin, IVF, ephedrine, and 1u prbc with increase of SBP to 90s - low 100s. She remained asymptomatic during this time and denied chest pain, palpitations, SOB, lightheadedness, cough, f/c, or n/v. While in recovery from surgery, patient is being worked up for potential cause of anemia and hypotension. Cardiology is consulted for afib rvr accompanied by hypotension of unknown etiology. TTE obtained on 03/12/25 during a past hospitalization showed an EF of 57%, mild dilatation of LA, and mild to moderate global valvular regurgitation. ECG obtained on 03/20/25 showed afib rvr with a HR of 140, as well as prolonged QT, but no ischemic changes. She has had 2 additional ECGs since and both have noted no significant change. Patient is on Eliquis 5mg BID, which is currently being held. Patient was started on metoprolol 25mg Q8h, with HR decrease from 130s to 100s. INTERVAL HISTORY: Patient seen this morning resting in bed. She states that overall she is doing well despite pain in L hip. She had decent sleep last night, but is still feeling slightly fatigued. She reports that her felt palpitations occur about 1-2 a week, and that she did not have any of them preceding her fall on 03/19. She has been having these occasional palpitations for some time now but is unable to say when they exactly began, although a note in her chart dated 10/04/20 mentions paroxysmal atrial fibrillation documented on 10/26/17. 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 Assessment/Plan Hanna Nelson is a 84 y.o. female with afib, T2DM, HLD, HTN, hypothyroidism, CKD stage 3, pe/ripheral neuropathy, and chronic diabetic foot ulcer who presented to the hospital on 03/20/25 after tripping at home the night prior and being unable to get back up. Cardiology is consulted for afib rvr accompanied by hypotension of unknown etiology. AFIB RVR, Paroxysmal vs Persistent Patient has known afib that dates back to at least 10/26/17, currently paroxysmal vs persistent. Patient states that she has occasional palpitations but no other symptoms such as SOB, chest pain, lightheadedness, or stroke-like symptoms. - Continue metoprolol 25mg Q8h for rate control - Would prefer if patient continued held Eliquis 5mg BID, but with recent procedure and continuing anemia will refer restarting to surgical team - Pain management - Continue telemetry Asymptomatic Hypotension of Unknown Etiology Patient with low BPs pre and post op, but have since been soft normal. There was concern for shock or infection, and there is currently labs and cultures that are being run. She also had a Hgb of 6.8 and was given 1u prbc. Patient was asymptomatic during this time. Hypotension is unlikely due to cardiac concern and more likely is due some other cause such as recent surgery and/or anemia requiring transfusion. - Continue to monitor BP - Pressors and/or fluids PRN There is no need for further cardiac workup at this time. Cardiology will continue to follow telemetry, please reach out with any further questions or concerns Nicholas Gotti, M4 Patient staffed with Cardiology attending, Dr. Brooks Medications: Scheduled Meds[1] Infusion Medications: Continuous Meds[2] Physical Examination: Vitals: 03/22/25 0021 03/22/25 0419 03/22/25 0437 03/22/25 0531 BP: 104/59 102/63 114/61 104/59 BP Location: Right arm Left arm Left arm Patient Position: Sitting Lying Lying Pulse: 106 118 109 96 Resp: 18 12 18 16 Temp: (!) 35.6 C (96 F) 37.1 C (98.8 F) 37 C (98.6 F) (!) 35.6 C (96 F) TempSrc: Temporal Temporal Temporal Temporal SpO2: 97% 95% 97% 97% Weight: Height: Intake/Output Summary (Last 24 hours) at 03/22/2025 0701 Last data filed at 03/22/2025 0611 Gross per 24 hour Intake 4488 ml Output 1825 ml Net 2663 ml Wt Readings from Last 3 Encounters: 03/20/25 200 lb (90.7 kg) 03/15/25 200 lb (90.7 kg) 02/23/25 200 lb (90.7 kg) Physical Exam Constitutional: no distress. well nourished. well hydrated Psychiatric: A &O x 4. Medical insight poor NMT: Oral mucosa is pink and moist Neck: no JVD. Respiratory: Lungs are CTA Cardiac exam: Rhythm: irregular, consistent with known afib ; Normal S1 and S2 Murmur: none Other: No rub; no gallop Vasc: Peripheral pulses irregular Abdomen: soft, nl BS Extremities: no LE edema Skin: Warm to touch and well perfused Laboratory Tests: TROPONIN I, CONVENTIONAL SENSITIVITY CK Date Value Ref Range Status 03/20/2025 253 (H) 30 - 185 U/L Final TROPONIN I, HIGH SENSITIVITY Troponin HS Serial Baseline Date Value Ref Range Status 03/20/2025 13 <=14 ng/L Final Comment: In individuals presenting with symptoms > 2h, a baseline troponin <= 5 ng/L suggests acute cardiac injury is unlikely and further serial testing is generally not indicated. 03/12/2025 4 <=14 ng/L Final Comment: In individuals presenting with symptoms > 2h, a baseline troponin <= 5 ng/L suggests acute cardiac injury is unlikely and further serial testing is generally not indicated. 01/25/2025 10 <=14 ng/L Final Comment: In individuals presenting with symptoms > 2h, a baseline troponin <= 5 ng/L suggests acute cardiac injury is unlikely and further serial testing is generally not indicated. 2h Troponin HS (Serial 2nd Troponin) Date Value Ref Range Status 03/20/2025 12 <=14 ng/L Final Comment: Rising or falling troponin delta below 2 ng/L as compared to baseline value suggests that acute cardiac injury is unlikely. 03/12/2025 6 <=14 ng/L Final Comment: Rising or falling troponin delta below 2 ng/L as compared to baseline value suggests that acute cardiac injury is unlikely. 01/26/2025 18 (H) <=14 ng/L Final Comment: 2h troponin (2nd troponin) samples collected between 1h 40 min and 2h and 20 min of the baseline collection time can be utilized to interpret delta troponins as per [employer] algorithms. Samples collected outside this timeframe need to be interpreted clinically. Rising or falling troponin delta between 2 - 15 ng/L as compared to baseline value requires a 3rd serial troponin No results found for: TROPDELTBASE 4h Troponin HS (Serial 3rd Troponin) Date Value Ref Range Status 03/12/2025 6 <=14 ng/L Final Comment: 4h troponin (3rd troponin) samples collected between 1h 40 min and 2h and 20 min of the 2h troponin collection time can be utilized to interpret delta troponins as per [employer] algorithms. Samples collected outside this timeframe need to be interpreted clinically. Rising or falling troponin delta below 2 ng/L as compared to 2h troponin value suggests that acute cardiac injury is unlikely. 01/26/2025 24 (H) <=14 ng/L Final Comment: 4h troponin (3rd troponin) samples collected between 1h 40 min and 2h and 20 min of the 2h troponin collection time can be utilized to interpret delta troponins as per [employer] algorithms. Samples collected outside this timeframe need to be interpreted clinically. Rising or falling troponin delta between 2 - 15 ng/L as compared to 2h troponin value requires further evaluation. No results found for: TROPDELTSEC Recent Labs 03/20/25115803/20/25212203/21/25 0216 03/22/25 0116 NA 140 135* 136 133* K 5.0 4.5 4.5 4.5 CL 109* 106 107 105 CO2 16* 20* 18* 19* BUN 43* 41* 38* 37* CREATININE 1.70* 1.32* 1.40* 1.45* EGFR 29.3* 39.6* 36.9* 35.4* Recent Labs 03/20/25115803/20/25213903/21/25 0123 03/21/25 1147 03/21/25 1745 03/22/25 0116 WBC 14.1* -- 12.8* -- 10.0 9.1 HGB 10.3* < > 9.4* 6.8* 8.2 8.0* 6.7* HCT 31.3* -- 29.3* 21.4* 25.2* 20.6* MCV 91.8 -- 95.1 -- 93.3 91.6 PLT 279 -- 289 -- 158 157 < > = values in this interval not displayed. Lab Results Component Value Date HGBA1C 6.8 (H) 03/20/2025 Lab Results Component Value Date TSH 1.71 03/14/2025 No results found for: "CHOL" No results found for: "HDL" No results found for: "LDLCALC" No results found for: "TRIG" No results found for: "CHOLHDL" No results found for: LDLCHOLESTER No results for input(s): "BNP" in the last 72 hours. Recent Labs 03/20/252139 INR 1.1 Results from last 7 days Lab Units 03/21/25 1745 AST U/L 22 ALT U/L 12 No results found for: "IRON", "TIBC", "FERRITIN" Radiology: Cardiac Tests Personally Reviewed: Last EKG 03/20/25 ECG 12-LEAD 03/21/2025 7:09 PM (Final) Impression Atrial fibrillation Nonspecific T abnormalities, lateral leads Compared to ECG 03/20/2025 15:08:18 No significant change is noted Electronically Signed On 03-21-2025 19:09:08 EDT by Marcelle Dc Signed by: Marcelle Dc MD on 03/21/2025 7:09 PM Telemetry findings: afib, HR 100s Reports reviewed: Last Echo 03/12/25 TRANSTHORACIC ECHOCARDIOGRAM (TTE) COMPLETE (CONTRAST/BUBBLE/3D PRN) 03/15/2025 1:03 PM (Final) Interpretation Summary Left Ventricle: Left ventricle size is normal. Normal wall thickness. Normal left ventricular systolic function. EF by 2D Simpsons Biplane is 57%. Normal wall motion. Right Ventricle: Right ventricle size is normal. Normal systolic function. Aortic Valve: Mild (1+) regurgitation. Mitral Valve: Mild to moderate (1-2+) regurgitation. Tricuspid Valve: Mild to moderate (1-2+) regurgitation. RVSP is 35 mmHg. Left Atrium: Left atrium is mildly dilated..LA Vol Index is 37 ml/m2. Signed by: Vero Byrd MD on 03/15/2025 1:03 PM Last Cath No results found for this or any previous visit. Last Stress Test No results found for this or any previous visit. Last EP study No results found for this or any previous visit. EF BP Date Value Ref Range Status 03/15/2025 57 55 - 100 % Final MARCELLE SCORE: 142 MARCELLE Score Link Nicholas Gotti, M4 DATE of SERVICE: 03/22/2025 [1] [Held by provider] apixaban, 5 mg, Oral, BID atorvastatin, 20 mg, Oral, Nightly gabapentin, 300 mg, Oral, BID insulin glargine, 26 Units, SubCUTAneous, Nightly insulin lispro, 0-6 Units, SubCUTAneous, TID WC And insulin lispro, 0-6 Units, SubCUTAneous, Nightly Lactobacillus, 4 tablet, Oral, Daily levothyroxine, 25 mcg, Oral, qAM AC metoprolol tartrate, 25 mg, Oral, q8h piperacillin-tazobactam, 4,500 mg, IntraVENous, q6h trospium, 20 mg, Oral, qAM AC vancomycin, 1,000 mg, IntraVENous, q24h [2] lactated Ringer's, 75 mL/hr, Last Rate: 75 mL/hr (03/21/25 1834) [employer] Phone: 03-21-2025 Consult note Formatting of th is note is different from the original. Images from the original note were not included. Pharmacy Managed Vancomycin Dosing Service Consult Note Consult Date: 03/21/25 Patient Name: Hanna Nelson Allergies: Tape Age: 84 y.o. Sex: female Estimated body mass index is 28.09 kg/m as calculated from the following: Height as of this encounter: 1.797 m (5' 10.75"). Weight as of this encounter: 90.7 kg (200 lb). DW: 90.7 kg Lab Results Component Value Date CREATININE 1.40 (H) 03/21/2025 CREATININE 1.32 (H) 03/20/2025 BUN 38 (H) 03/21/2025 BUN 41 (H) 03/20/2025 WBC 10.0 03/21/2025 WBC 12.8 (H) 03/21/2025 Calculated CrCl: 36 mL/min (Cockcroft-Gault) Consulted By: Raffi Paulino Infectious Diagnosis: SSTI/sepsis (AUC Goal 400-600 mg/L*hr) Random Vancomycin Level Due: 03/23 Antimicrobials: Patient recently received an antibiotic (last 12 hours) Showing orders from other encounters Date/Time Action Medication Dose Rate 03/21/25 1748 New Bag ceFAZolin (Ancef) 2,000 mg in sodium chloride 0.9 % 100 mL IVPB 2,000 mg 200 mL/hr 03/21/25 0800 Given ceFAZolin (Ancef) injection 2 g Assessment/Plan: Doses, serum creatinine, and vancomycin levels interfaced automatically to [employer] and data has been analyzed and interpreted. Start Vancomycin 1750 mg ONCE then 1000mg q24 hours based on patient age, weight, renal function, and infectious diagnosis (11 mg/kg). Predicted AUC = 525 mg/L*hr (goal 400-600 mg/L*hr) PAUC = 77% (probability that AUC is >400 mg/L*hr) Pconc = 31% (probability that Ctrough is above 20 mcg/mL (toxicity)) Will assess level on 03/23 and adjust as appropriate. Trend serum creatinine. Orders placed. Thank you for this consult. Please secure text or call with questions. DATE: 03/21/25 TIME: 7:25 PM Brooke Fair RPh Clinical Pharmacist Available via Secure Chat T [facility] 03-21-2025 Nurse Note Attempted x 2 nurses to obtain two sets of blood cultures but was unsuccessful. Notified rapid to help obtain blood culures x 2. Culture of the R plantar diabetic ulcer cultured. T [facility] 03-21-2025 Nurse Note BP has improved with blood product. Medicine team at bedside to assess pt, states she looks better. Updated amber Do. Called report and in for transport. T [facility] 03-21-2025 Nurse Note Unit of PRBC hanging, pt alert and talking. T [facility] 03-21-2025 Nurse Note Updated amber Do over phone on status in pacu T [facility] 03-21-2025 Nurse Note Order received for blood, unit released to blood bank. Pt awake and alert at this time, carrying conversation. [facility] 03-21-2025 Nurse Note Communicated critical lab Hgb 6.[address] Jackson, Dr Canales and Dr Collado, awaiting further orders. [facility] 03-21-2025 Note Formatting of this n ote is different from the original. Addendum created 03/21/25 115 by ALEJANDRINA Velasquez CRNA Intraprocedure Meds edited, Orders acknowledged in Narrator [facility] 03-21-2025 Note Addendum created 06/05 115 by ALEJANDRINA Velasquez CRNA Intraprocedure Meds edited, Orders acknowledged in Narrator [facility] 03-21-2025 Miscellaneous Notes Addendum created 03/21/251154 by ALEJANDRINA Velasquez CRNA Intraprocedure Meds edited, Orders acknowledged in Narrator Patient: Hanna Nelson Procedure Summary Date: 03/21/25 Room / Location: [address] Operating Room Anesthesia Start: 745 Anesthesia Stop: 926 Procedure: ORIF, FRACTURE, FEMUR, INTERTROCHANTERIC, WITH INTRAMEDULLARY IMPLANT INSERTION (Left: Hip) Diagnosis: Closed fracture of left hip, initial encounter ([facility]) Surgeons: Willi Sullivan MD Responsible Provider: ALEJANDRINA Velasquez CRNA Anesthesia Type: general ASA Status: 3 - Emergent Anesthesia Type: general Vitals Value Taken Time BP 84/69 03/21/25 09:30 Temp 36.1 C (97 F) 03/21/25 09:25 Pulse 125 08/10/25 09:45 Resp 16 03/21/25 09:30 SpO2 93 % 03/21/25 09:45 Vitals shown include unfiled device data. Anesthesia Post Evaluation Patient location during evaluation: PACU Patient participation: complete - patient cannot participate Level of consciousness: sleepy Pain management: satisfactory to patient Airway patency: patent Dental Injury: no Cardiovascular status: acceptable, blood pressure returned to baseline and hemodynamically stable Respiratory status: acceptable and spontaneous ventilation Hydration status: euvolemic Nausea/Vomiting: controlled There were no known notable events for this encounter. Patient can be discharged once all PACU criteria has been met. documented in this encounter [facility] 03-21-[address] Jackson of BP, order for h+h received, attempting to place second IV and obtain bloodwork [facility] 03-21-[address] Jackson of BP, order received for 25mg IM Ephedrine. [facility] 03-21-2025 Hospital Discharg e instructions Golden Collado MD - 03/21/2025 10:34 AM EDT Images from the original note were not included. General Orthopedic Discharge Instructions The following instructions have been prepared to help you when you leave the hospital. These guidelines are for the post surgery period. -Activity & Weightbearing: -Weight bearing as tolerated to your right leg. Meaning it is ok to put full weight on your leg for walking and other needs. -Weight bearing as tolerated to your left leg. Meaning it is ok to put full weight on your leg for walking and other needs. -Ok for full range of motion in your injured leg as you can tolerate it. We encourage frequent stretching and moving the hip, knee, and ankle to prevent stiffness. -Ease into normal activity as tolerated. Avoid heavy lifting/pulling/otherwise strenuous activity. -Wound Care and Hygiene: Keep bandaging clean and dry. Ok to change dressings as needed for saturation. Ok to remove bandaging/dressings 5 days after surgery. At this point, if incision is clean and without drainage it is ok to go without any bandaging. If it is draining, reapply new bandaging. -Immobilization Not applicable -Pain Control: -Pain control: Alternate Tylenol (acetaminophen) and Ibuprofen every 4 hours. For example, take Tylenol at 7am and Ibuprofen at 11am. Then take Tylenol at 3pm and Ibuprofen at 7pm. Take narcotic medicine (oxycodone, hydrocodone, vicodin, norco, percocet, tramadol, etc.) for breakthrough pain only. Make sure to double check that narcotic pain medicine does not also contain acetaminophen as exceeding greater than 3000mg a day is unsafe. -Use ice as needed to help reduce pain and swelling. Do not put ice directly on the skin. Do not leave ice on for more than 30 minutes at a time. -Medications: -See medication instructions. Please be sure to read and understand the information provided by your pharmacy. Ask your Pharmacist if you have any questions. -Precautions: call your doctor or return to the emergency department IF: -You develop signs of infection including but not limited to: increasing pain, redness, swelling, purulent drainage, and/or a fever -You develop excessive bleeding from your incision -Anesthesia Precautions: -Not applicable -Follow up visit: -Follow-up in clinic with Dr. Sullivan for a visit 2 weeks after the date of your surgery. The office contact information is provided in your paperwork. Sonja Domingo RN - 03/23/2025 3:04 PM EDT Images from the original note were not included. Continuity of Care Form Patient Name: Hanna Nelson : 1940 Admit date: 03/20/2025 Discharge date: 03/24/2025 Code Status Order: Full Code Advance Directives: N Admitting Physician: Janet Houston DO PCP: Dorothy Medrano Discharging Nurse: Sonja Domingo Discharging Hospital Unit/Room#: [id number]/[id number] A Discharging Unit Emergency Contact: Extended Emergency Contact Information Primary Emergency Contact: Hi Nelson Relation: Son Preferred language: Burmese Metal Bumper needed? No Secondary Emergency Contact: Melba [facility] Mobile Relation: Daughter Past Surgical History: Past Surgical History: Procedure Laterality Date BACK SURGERY CHOLECYSTECTOMY Immunization History: There is no immunization history on file for this patient. 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) Confusion Sepsis (HCC) Atrial fibrillation with rapid ventricular response (HCC) Isolation/Infection: No active isolations No active infections Nurse Assessment: Last Vital Signs: BP 142/94 (BP Location: Left arm, Patient Position: Sitting) Pulse 118 Temp 36.1 C (96.9 F) (Temporal) Resp 16 Ht 1.797 m (5' 10.75") Wt 90.7 kg (200 lb) SpO2 98% BMI 28.09 kg/m Last documented pain score (0-10 scale): Last Weight: Wt Readings from Last 1 Encounters: 03/20/25 90.7 kg (200 lb) Mental Status: LAURA Patient Mental Status: oriented IV Access: LAURA IV Access: None Nursing Mobility/ADLs: Walking Total assistance Transfer Minimal assistance Bathing Total assistance Dressing Total Toileting Total assistance Feeding Independent Toll Gate Tender Independent Med Delivery no Wound Care Documentation and Therapy: Wound/Incision 09/18/24 Diabetic Ulcer Foot Right (Active) Number of days: 185 Wound/Incision 03/21/25 Incision Leg Anterior;Left;Upper (Active) Site Assessment Unable to assess 03/22/252025 Linda-Wound Assessment Clean;Dry;Intact 03/22/252025 Odor None 03/22/252025 Drainage Amount None 03/22/252025 Primary Dressing Gauze;Transparent film 03/22/252025 Dressing Status Clean, dry & intact 03/22/252025 Number of days: 2 Elimination: Continence: Bowel: no Bladder: no Urinary Catheter: None Colostomy/Ileostomy/Ileal Conduit: None Date of Last BM: 03/23/2025 Intake/Output Summary (Last 24 hours) at 03/23/2025 1502 Last data filed at 03/23/2025 0534 Gross per 24 hour Intake 550 ml Output 1300 ml Net -750 ml I/O last 3 completed shifts: In: 4958 (54.7 mL/kg) [P.O.:950; I.V.:3688 (40.7 mL/kg); Blood:320] Out: 3100 (34.2 mL/kg) [Urine:3100 (0.9 mL/kg/hr)] Weight: 90.7 kg Safety Concerns: history of falls (last 30 days) Impairments/Disabilities: none Nutrition Therapy: Current Nutrition Therapy: Oral diet: general Routes of Feeding: oral Liquids: no restrictions Daily Fluid Restriction: no Last Modified Barium Swallow with Video (Video Swallowing Test): not done Treatments at the Time of Hospital Discharge: Respiratory Treatments: Oxygen Therapy: is not on home oxygen therapy. Ventilator: No ventilator support Rehab Therapies: physical therapy Weight Bearing Status/Restrictions: weight bearing as tolerated Other Medical Equipment (for information only, NOT a DME order): none Other Treatments: Patient's personal belongings (please select all that are sent with patient): none RN SIGNATURE: MANAGEMENT/SOCIAL WORK SECTION Inpatient Status Date: 03/20/25 Discharging to Facility/ Agency Name: [facility] Address: [address] [place] [address] Fax: Dialysis Facility (if applicable) Name: Address: Dialysis Schedule: Phone: Fax: Web Page Developer/Regional Business Development Manager signature: ICIAN SECTION Name: Hanna Nelson Prognosis: fair Condition at Discharge: stable Rehab Potential (if transferring to Rehab): fair Recommended Labs or Other Treatments After Discharge: CBC, CMP, Needs to get appointment with Cardiology, F/U with Ortho The individual is being admitted to a nursing facility directly from an [facility] or a unit of a [facility] that is not operated by or licensed by [facility] under section 5119.14 or 5160-3-15.1 5 The individual requires the level of services provided by a nursing facility for the condition for which he or she was treated in the hospital and, Physician Certification: I certify the above information and transfer of Hanna Nelson is necessary for the continuing treatment of the diagnosis listed and that she requires care home facility for less than 30 days. Update Admission H&P: No change in H&P PHYSICIAN SIGNATURE: documented in this encounter [facility] 03-21-2025 Nurse Note Second bag of albumin hanging per order [facility] 03-21-2025 Procedure anesthe angie Narrative Procedure Name Responsible Anesthesiologist Anesthesia Start Time Anesthesia Stop Time ORIF, FRACTURE, FEMUR, INTERTROCHANTERIC, WITH INTRAMEDULLARY IMPLANT INSERTION (Left: Hip) Marlon Jackson DO 03/21/25 0746 03/21/25 0927 Events Date Time Event Comment 03/21/2025 0711 AN Preop Started 0740 0746 In Room 0746 An Start 0750 An Start Data 0750 An Induction The patient was reevaluated immediately before moderate or deep sedation use and before anesthesia induction. 0751 An Intubation 0752 Anesthesia Ready 0823 Proc Start 0913 Proc Fin 0919 An Extubation - Spontaneous ventilation - Patient suctioned - Airway removed without difficulty - Spontaneous ventilation maintained 0921 an stop data 0922 Out of Room 0927 An Stop 0927 Staff Handoff Meds Name Total lidocaine PF (Xylocaine-MPF) local injec tion 2 % 100 mg propofol (Diprivan) injection 10 mg/mL 1 00 mg dexAMETHasone (Decadron) PF injection 10 mg/mL 4 mg dexmedetomidine (Precedex) 40 mcg in sod ium chloride 0.9 % 10 mL injection 8 mcg acetaminophen (Ofirmev) injection 1,000 mg ondansetron (Zofran) 2 mg/mL injection 4 mg phenylephrine syringe 1 mg/ 10 mL syring e (IV Push for HYPOTENSION) 1,300 mcg ketamine injection 10 mg/mL (50 mg/5 mL) prefilled syringe 20 mg ceFAZolin (Ancef) vial 1 g 2 g succinylcholine (Anectine) 200 mg/10 mL injection syringe 120 mg ePHEDrine injection 50 mg EPINEPHrine PF (Adrenalin) injection 1 m g/mL 20 mcg tranexamic acid (Cyklokapron) injection 1,000 mg lactated Ringer's infusion 500 mL * Agents Name O2 N2O Isoflurane * Blood No blood administrations on file. Lines, Drains, and Airways Type Details Placement Removal Wound/Incision 09/18/24; 2144; Y; 4 80 weeks; Diabetic ulc; Gradually appeared; Foot; Right; redness between second and third toe, and between third and fourth toe; Grade 2; Full thickness 09/18/242144 by Suha Eastman RN Peripheral IV Placement Date: 03/20/25; Placement Time: 115; Catheter Size: 22 G; Orientation: Anterior, Left; Location: Forearm; Site Prep: Chlorhexidine; Local Anesth: None; Technique: Anatomical landmarks; Inserted by: Mariam JANG; Insertion Attempts: 2; Difficult Venous Access? Yes 03/20/251156 by Vandana Soliman RN Urethral Catheter Placement Date: 03/20/25; Placement Time: 2049; Inserted by: Arelis Orellana RN; Type: Straight-tip; Balloon Size: 10 mL; Urine Returned: Yes 03/20/252049 by Arelis Mueller RN Wound/Incision 03/21/25; 907; Incision; Leg; Anterior, Left, Upper 03/21/25907 by Sofy Hoyt RN ETT Placement Date: 03/21/25; Placement Time: 075 (created via procedure documentation); Type: ETT - single; Single Lumen Tube Size: 7 mm; Cuffed: Yes; Location: Oral; Placement Verification: Auscultation, Capnometry; Removal Date: 03/21/25; Removal Time: 91803/21/25 075 by ALEJANDRINA Velasquez CRNA 03/21/25 09 by ALEJANDRINA Velasquez CRNA documented in this encounter [id number]* Anesthesia Discharge Note - ALEJANDRINA Velasquez CRNA - 03/21/2025 9:45 AM EDT Patient: Hanna Nelson Procedure Summary Date: 03/21/25 Room / Location: [address] Operating Room Anesthesia Start: 745 Anesthesia Stop: 926 Procedure: ORIF, FRACTURE, FEMUR, INTERTROCHANTERIC, WITH INTRAMEDULLARY IMPLANT INSERTION (Left: Hip) Diagnosis: Closed fracture of left hip, initial encounter ([facility]) Surgeons: Willi Sullivan MD Responsible Provider: ALEJANDRINA Velasquez CRNA Anesthesia Type: general ASA Status: 3 - Emergent Anesthesia Type: general Vitals Value Taken Time BP 84/69 03/21/25 09:30 Temp 36.1 C (97 F) 03/21/25 09:25 Pulse 125 03/21/25 09:45 Resp 16 03/21/25 09:30 SpO2 93 % 03/21/25 09:45 Vitals shown include unfiled device data. Anesthesia Post Evaluation Patient location during evaluation: PACU Patient participation: complete - patient cannot participate Level of consciousness: sleepy Pain management: satisfactory to patient Airway patency: patent Dental Injury: no Cardiovascular status: acceptable, blood pressure returned to baseline and hemodynamically stable Respiratory status: acceptable and spontaneous ventilation Hydration status: euvolemic Nausea/Vomiting: controlled There were no known notable events for this encounter. Patient can be discharged once all PACU criteria has been met. [id number] Anesthesiology Postoperative evaluation and management note* Anesthesia Postprocedure Evaluation - ALEJANDRINA Velasquez CRNA - 03/21/2025 9:45 AM EDT Patient: Hanna Nelson Procedure Summary Date: 03/21/25 Room / Location: [address] Operating Room Anesthesia Start: 745 Anesthesia Stop: 926 Procedure: ORIF, FRACTURE, FEMUR, INTERTROCHANTERIC, WITH INTRAMEDULLARY IMPLANT INSERTION (Left: Hip) Diagnosis: Closed fracture of left hip, initial encounter ([facility]) Surgeons: Willi Sullivan MD Responsible Provider: Yordan Gannon APRN - REJI Anesthesia Type: general ASA Status: 3 - Emergent Anesthesia Type: general Vitals Value Taken Time BP 84/69 03/21/25 09:30 Temp 36.1 C (97 F) 03/21/25 09:25 Pulse 118 03/21/25 09:44 Resp 16 03/21/25 09:30 SpO2 93 % 03/21/25 09:44 Vitals shown include unfiled device data. Anesthesia Post Evaluation Patient participation: complete - patient cannot participate Level of consciousness: sleepy Pain management: satisfactory to patient Multimodal analgesia pain management approach Airway patency: patent Two or more strategies used to mitigate risk of obstructive sleep apnea Respiratory status: acceptable Cardiovascular status: acceptable Hydration status: acceptable There were no known notable events for this encounter. MIPS #430 PONV Patient received an inhalational anesthetic (4554F) Patient exhibits three or more risk factors for PONV (4556F) Patient received at leaset 2 prophylactic Rx PONV anti-emtic agents of different classes preop and/or intraop (G9775) MIPS # 424 Perioperative Temperature Management Anesthesia time was 60 minutes or longer (4255F) Anesthesai administered was General (inhalational or TIVA) or Neuraxial block (X0424) At least one body temperature greater than 95.8F/35.5C achieved within the 30 mins immediately prior to or the 15 minutes immediately following anesthesia end time (G9771) MIPS #477 Multimodal Pain Management Not emergent case Patient was administered multimodal pain management (two or more drugs and/or interventions excluding systemic opioids) in the periopeartive period occurring at some time between 6 hours prior to anesthesia start time until discharged from PACU (G2148) MIPS #404 Anesthesiology Smoking Abstinence The patient is not a current smoker (e.g. cigarette, cigar, pipe, e- cigarette/vaping/marijuana) If no stop here (XX404) I completed my handoff to the receiving clinician during which we: 1. Identified the patient 2. Identified the responsible provider 3. Reviewed the pertinent medical history 4. Discussed the surgical course 5. Reviewed intra-op anesthesia management and issues during anesthesia 6. Set expectations for post-procedure period 7. Allowed opportunity for questions and acknowledgement of understanding. [facility] Work Phone: [phone] Nurse Note* Perioperative Nursing Note - Trung Orellana RN - 03/21/2025 9:[address] Jackson of hypotension, orders for albumin received [id number] Surgical operation note* Anesthesia Postprocedure Evaluation - ALEJANDRINA Velasquez CRNA - 03/21/2025 9:45 AM EDT Patient: Hanna Nelson Procedure Summary Date: 03/21/25 Room / Location: [address] Operating Room Anesthesia Start: 745 Anesthesia Stop: 926 Procedure: ORIF, FRACTURE, FEMUR, INTERTROCHANTERIC, WITH INTRAMEDULLARY IMPLANT INSERTION (Left: Hip) Diagnosis: Closed fracture of left hip, initial encounter ([facility]) Surgeons: Willi Sullivan MD Responsible Provider: ALEJANDRINA Velasquez CRNA Anesthesia Type: general ASA Status: 3 - Emergent Anesthesia Type: general Vitals Value Taken Time BP 84/69 03/21/25 09:30 Temp 36.1 C (97 F) 03/21/25 09:25 Pulse 118 03/21/25 09:44 Resp 16 03/21/25 09:30 SpO2 93 % 03/21/25 09:44 Vitals shown include unfiled device data. Anesthesia Post Evaluation Patient participation: complete - patient cannot participate Level of consciousness: sleepy Pain management: satisfactory to patient Multimodal analgesia pain management approach Airway patency: patent Two or more strategies used to mitigate risk of obstructive sleep apnea Respiratory status: acceptable Cardiovascular status: acceptable Hydration status: acceptable There were no known notable events for this encounter. MIPS #430 PONV Patient received an inhalational anesthetic (4554F) Patient exhibits three or more risk factors for PONV (4556F) Patient received at leaset 2 prophylactic Rx PONV anti-emtic agents of different classes preop and/or intraop (G9775) MIPS # 424 Perioperative Temperature Management Anesthesia time was 60 minutes or longer (4255F) Anesthesai administered was General (inhalational or TIVA) or Neuraxial block (X0424) At least one body temperature greater than 95.8F/35.5C achieved within the 30 mins immediately prior to or the 15 minutes immediately following anesthesia end time (G9771) MIPS #477 Multimodal Pain Management Not emergent case Patient was administered multimodal pain management (two or more drugs and/or interventions excluding systemic opioids) in the periopeartive period occurring at some time between 6 hours prior to anesthesia start time until discharged from PACU (G2148) MIPS #404 Anesthesiology Smoking Abstinence The patient is not a current smoker (e.g. cigarette, cigar, pipe, e- cigarette/vaping/marijuana) If no stop here (XX404) I completed my handoff to the receiving clinician during which we: 1. Identified the patient 2. Identified the responsible provider 3. Reviewed the pertinent medical history 4. Discussed the surgical course 5. Reviewed intra-op anesthesia management and issues during anesthesia 6. Set expectations for post-procedure period 7. Allowed opportunity for questions and acknowledgement of understanding. * Anesthesia Procedure Notes - ALEJANDRINA Velasquez CRNA - 03/21/2025 8:15 AM EDTAssociated Order(s): Airway Airway Date/Time: 03/21/2025 7:51 AM Reason: emergent Airway not difficult General Information and Staff Patient location during procedure: Procedural Resident/CLOTHING TRADES WORKERS: ALEJANDRINA Velasquez CRNA Performed: CLOTHING TRADES WORKERS Patient Condition Indications for airway management: anesthesia and airway protection Patient position: sniffing Sedation level: RSI Final Airway Details Preoxygenated: yes Final airway type: endotracheal airway Successful airway: ETT Cuffed: yes Successful intubation technique: direct laryngoscopy Adjuncts used in placement: intubating stylet Endotracheal tube insertion site: oral Blade: Temple Blade size: #2 ETT size (mm): 7.0 Cormack-Lehane Classification: grade I - full view of glottis Placement verified by: chest auscultation and capnometry Measured from: lips ETT to lips (cm): 22 Number of attempts at approach: 1 * Anesthesia Preprocedure Evaluation - Marlon Jackson DO - 03/21/2025 7:12 AM EDT Patient: Hanna Nelson Procedure Information Date/Time: 03/21/25729 Procedure: ORIF, FRACTURE, FEMUR, INTERTROCHANTERIC, WITH INTRAMEDULLARY IMPLANT INSERTION (Left: Hip) Location: [address] Operating Room Surgeons: Willi Sullivan MD Relevant Problems Cardio (+) Atrial fibrillation with rapid ventricular response (HCC) Endo (+) Uncontrolled type 2 diabetes mellitus with hyperglycemia (HCC) Past Medical History: Past Medical History: No date: Arthritis No date: Atrial fibrillation (HCC) No date: Diabetes mellitus (HCC) No date: Hyperlipidemia No date: Hypertension No date: Hypothyroidism No date: Neuropathy Past Surgical History: Past Surgical History: No date: BACK SURGERY No date: CHOLECYSTECTOMY Social History: TOBACCO: reports that she quit smoking about 60 years ago. Her smoking use included cigarettes. Shehas never used smokeless tobacco. ETOH: reports current alcohol use. Social History Substance and Sexual Activity Drug Use Never Family History: Family History[1] Screening: Postmenopausal Clinical information reviewed: Tobacco Allergies Meds Med Hx Surg Hx Fam Hx Soc Hx Physical Exam Airway Mallampati: II Cardiovascular Dental (+) chipped Pulmonary Abdominal Anesthesia Plan Any family history or previous problems with anesthesia no ASA 3 - emergent general Any family history or previous problems with anesthesia nopatient is NPO appropriate Interpretation Summary Show Result Comparison Left Ventricle: Left ventricle size is normal. Normal wall thickness. Normal left ventricular systolic function. EF by 2D Simpsons Biplane is 57%. Normal wall motion. Right Ventricle: Right ventricle size is normal. Normal systolic function. Aortic Valve: Mild (1+) regurgitation. Mitral Valve: Mild to moderate (1-2+) regurgitation. Tricuspid Valve: Mild to moderate (1-2+) regurgitation. RVSP is 35 mmHg. Left Atrium: Left atrium is mildly dilated..LA Vol Index is 37 ml/m2. TALIB Screening Labs: Lab Results Component Value Date WBC 12.8 (H) 03/21/2025 HGB 9.4 (L) 03/21/2025 HCT 29.3 (L) 03/21/2025 MCV 95.1 03/21/2025 PLT 289 03/21/2025 Lab Results Component Value Date NA 136 03/21/2025 K 4.5 03/21/2025 CL 107 03/21/2025 CO2 18 (L) 03/21/2025 BUN 38 (H) 03/21/2025 CREATININE 1.40 (H) 03/21/2025 GLUCOSE 201 (H) 03/21/2025 CALCIUM 9.0 03/21/2025 PROT 6.8 03/14/2025 ALKPHOS 49 03/14/2025 AST 18 03/14/2025 ALT 9 03/14/2025 EGFR 36.9 (L) 03/21/2025 Pain Score: Patient resting with eyes closed and respirations are greater than 12 Transthoracic echocardiogram (TTE) complete with contrast, bubble, strain, and 3D PRN Result Date: 03/15/2025 Left Ventricle: Left ventricle size is normal. Normal wall thickness. Normal left ventricular systolic function. EF by 2D Simpsons Biplane is 57%. Normal wall motion. Right Ventricle: Right ventriclesize is normal. Normal systolic function. Aortic Valve: Mild (1+) regurgitation. Mitral Valve: Mildto moderate (1-2+) regurgitation. Tricuspid Valve: Mild to moderate (1-2+) regurgitation. RVSP is 35 mmHg. Left Atrium: Left atrium is mildly dilated..LA Vol Index is 37 ml/m2. 03/20/25 ECG 12-LEAD 03/20/2025 3:17 PM (Final) Impression Atrial fibrillation w rapid ventricular response, V-rate 135 Borderline QT prolongation No acute ischemic changes Electronically Signed On 03-20-2025 15:17:51 EDT by Jennifer Perry Signed by: Jennifer Perry DO on 03/20/2025 3:17 PM Equipment Requests: Additional Equipment Requests [1] Family History Problem Relation Name Age of Onset Diabetes Father Ed Shue Hypertension Father Ed Shue Diabetes Son Hi Nelson Hypertension Son Hi Nelson documented in this [facility]08-10-2025 Nurse Note* Perioperative Nursing Note - Trung Orellana RN - 03/21/2025 9:30 AM EDT Post-op x-rays done, pt tolerated well, resting with eyes closed, awakens to voice. [id number] Anesthesiology procedure note* Anesthesia Procedure Notes - ALEJANDRINA Velasquez CRNA - 03/21/2025 8:15 AM EDTAssociated Order(s): Airway Airway Date/Time: 03/21/2025 7:51 AM Reason: emergent Airway not difficult General Information and Staff Patient location during procedure: Procedural Resident/CLOTHING TRADES WORKERS: ALEJANDRINA Velasquez CRNA Performed: [employer]OTHING TRADES WORKERS Patient Condition Indications for airway management: anesthesia and airway protection Patient position: sniffing Sedation level: RSI Final Airway Details Preoxygenated: yes Final airway type: endotracheal airway Successful airway: ETT Cuffed: yes Successful intubation technique: direct laryngoscopy Adjuncts used in placement: intubating stylet Endotracheal tube insertion site: oral Blade: Temple Blade size: #2 ETT size (mm): 7.0 Cormack-Lehane Classification: grade I - full view of glottis Placement verified by: chest auscultation and capnometry Measured from: lips ETT to lips (cm): 22 Number of attempts at approach: 1 [id number] [facility]08-10-2025 Procedure note* Op Note - Willi Sullivan MD - 03/21/2025 7:46 AM EDT Pre-operative Diagnosis: Left IT femur fracture Post-operative Diagnosis: Same Procedure: Intramedullary Nailing Left Femur (CPT 90697) Components used: [employer] Intertan IMN, 10 mm diameter X 44 cm length Anesthesia: General Surgeon: Laurie Assistants: Tobias Estimated Blood Loss: 100ml Complications: None Specimens: No Medications: Ancef 2 g IV and TXA 1 g IV Operative findings: An unstable Left IT femur fracture. The fracture was reduced and solid internalfixation was achieved with the above cephalomedullary nail. History of present illness: Hanna is a 84 y.o. female admitted on 03/20/2025 11:09 AM with a Leftfemur fracture. she was cleared medically for surgical intervention. Operative report: I met with Hanna in the preoperative area prior to the procedure and discussed the surgical plan once again and answered all of her questions related to the procedure and the expected post-operative course. The risks of surgery were discussed including but not limited to the risks of medications given for surgery, the risk of blood loss during and after surgery that can lead to the need for blood products in certain situations, infection, damage to normal structures that can lead to long termproblems of pain or dysfunction, wound healing complications, the possibility of nonunion, malunionand late or chronic pain were also discussed. In addition potentially life threatening complications at the time of surgery and after surgery were discussed including but not limited to deep vein thrombosis, pulmonary embolism, myocardial infarction, stroke and . I initialed her Left lower extremity and signed her consent form. she was then taken to the operating room. A general anesthetic was then given by the anesthesia staff and an endotracheal tube was placed by the anesthesia staff. At all times during the operative procedure the patient's head neck and airwaywere protected by the anesthesia staff. The patient was then transferred to the fracture table. Care was taken to identify and pad all bonyprominences. Perineal post was place and the feet were placed in the fracture table boots and secured. The upper extremities were padded and positioned. Closed reduction of the fracture was then accomplished utilizing the fracture table and verified onfluroscopic imaging in AP, oblique and lateral planes. The Left lower extremity was then prepped and draped in the usual orthopedic sterile fashion. A surgical timeout was then performed with the patient's identification, the procedure to be performed being reviewed, verification that the patient had received preoperative antibiotics, and verification of the correct surgical side. This timeout was performed by myself, the circulating room nurseand the anesthesia staff. The patient's ASA was verified by the nurse pharmacist helper and the anesthesiastaff. Fire risk was assessed. A 3.2 mm threaded guide pin was then placed through the skin proximal to the greater trochanter andadvanced until it was centered just medial to the tip of the greater trochanter on the AP fluroscopic view and was centered midway between the anterior and posterior edges of the greater trochanter on the lateral view. When the position of the pin was verified it was advanced through the cortex andtaken to the level of the lesser trochanter. Its intramedullary position was verified on AP and lateral fluroscopic images. The skin was then incised longitudinally around the pin and a soft tissue guide was advanced through the incision until it rested on the greater trochanteric tip. The proximal reamer was then placed over the guide pin and proximal reaming was carried out to the level of the lesser trochanter. The guide pin and reamer were removed and a ball tipped guide wire was placed into the femur through the previously reamed segment. The end of the guide wire had been bent slightly so that its position could be altered as it was advanced down the intramedullary canal to ensure it was centered on the AP and lateral fluroscopic views. Care was taken to avoid allowing the guide wire to rest on the anterior cortex distally. The guide wire once appropriately placed was measured to determine malick length. Reaming was then carried out over the guide wire up to a size 11 mm reamer where good isthmic chatter was encountered and it was decided to use a 10 mm diameter nail. After the reamer was removed the above mentioned nail was placed over the guide wire and fully seated within the femur. The outer proximal nail guide was then centered with respect to the head, neck and shaft of the femur on the lateral fluroscopic view. The guide sleeve for the lag/compression screw was placed through an incision in the lateral thigh and advanced until it rested on the lateral cortex of the femur. A 3.2 mm threaded guide pin was then advanced through the guide sleeve until it rested with the center of the femoral head subchondral bone on both the AP and lateral fluroscopic views. The guide pin was then measured to determine the length of the lag screw and compression screw. Once position of the pin was verified to be correct the compression screw slot was drilled and the anti-rotation bar was placed. Reaming was then carried out over the guide pin through the lag screw portion of the sleeve. Once reaming was complete the lag screw was placed over the guide pin and advanced until it was fully seated. The anti-rotation bar was then removed and the compression screw was placed and once engaged the fracture was compressed as verified on fluroscopic images. The outer guide was then detachedfrom the nail and fluroscopic images were obtained in AP, oblique and lateral planes to ensure proper position of the nail and lag/compression screws. Pns-Zars-Hbhwnaxy was felt to be less than 25 mm. Perfect fluroscopic circles were obtained distally through the malick and a skin incision was placed over the distal lateral thigh for locking screw placement. Blunt dissection was carried down to the outer cortex of the distal femur and drilling and measuring through a distal locking hole was accomplished. A 5mm locking screw was then placed. Its position was verified on fluroscopic imaging on AP, oblique and lateral planes. The incisions were then thoroughly irrigated with copious amounts of sterile saline. The subcutaneous tissues were closed with 2-0 vicryl and the skin with karen. Dry sterile dressing were applied. The patient was then transferred to her hospital bed, awakened from her anesthetic and then transported to the recovery room in stable condition. Post-operative plan: Additional Surgical Intervention: No further operative intervention needed Weight Bearing Instructions: Hanna will be weight bearing as tolerated on the left lower extremity. DVT Prophylaxis: LMWH will be started POD #1 and continued for 2 weeks post-operatively Antibiotics: No antibiotics needed Consults: Consult Rehab Dressings: Dry dressing change as needed for drainage Follow-up: follow-up as an outpatient in 2 weeks please call [phone] to make an appointment Any questions please page Ortho pager (resident vp information technology) or call my office at [phone] [facility]08-10-2025 Anesthesiology Preoperative evaluation and management note* Anesthesia Preprocedure Evaluation - Marlon Jackson DO - 03/21/2025 7:12 AM EDT Patient: Hanna Nelson Procedure Information Date/Time: 03/21/25729 Procedure: ORIF, FRACTURE, FEMUR, INTERTROCHANTERIC, WITH INTRAMEDULLARY IMPLANT INSERTION (Left: Hip) Location: [facility] OR [address] [place] [address] Operating Room Surgeons: Willi Sullivan MD Relevant Problems Cardio (+) Atrial fibrillation with rapid ventricular response (HCC) Endo (+) Uncontrolled type 2 diabetes mellitus with hyperglycemia (HCC) Past Medical History: Past Medical History: No date: Arthritis No date: Atrial fibrillation (HCC) No date: Diabetes mellitus (HCC) No date: Hyperlipidemia No date: Hypertension No date: Hypothyroidism No date: Neuropathy Past Surgical History: Past Surgical History: No date: BACK SURGERY No date: CHOLECYSTECTOMY Social History: TOBACCO: reports that she quit smoking about 60 years ago. Her smoking use included cigarettes. Kayleigh never used smokeless tobacco. ETOH: reports current alcohol use. Social History Substance and Sexual Activity Drug Use Never Family History: Family History[1] Screening: Postmenopausal Clinical information reviewed: Tobacco Allergies Meds Med Hx Surg Hx Fam Hx Soc Hx Physical Exam Airway Mallampati: II Cardiovascular Dental (+) chipped Pulmonary Abdominal Anesthesia Plan Any family history or previous problems with anesthesia no ASA 3 - emergent general Any family history or previous problems with anesthesia nopatient is NPO appropriate Interpretation Summary Show Result Comparison Left Ventricle: Left ventricle size is normal. Normal wall thickness. Normal left ventricular systolic function. EF by 2D Simpsons Biplane is 57%. Normal wall motion. Right Ventricle: Right ventricle size is normal. Normal systolic function. Aortic Valve: Mild (1+) regurgitation. Mitral Valve: Mild to moderate (1-2+) regurgitation. Tricuspid Valve: Mild to moderate (1-2+) regurgitation. RVSP is 35 mmHg. Left Atrium: Left atrium is mildly dilated..LA Vol Index is 37 ml/m2. TALIB Screening Labs: Lab Results Component Value Date WBC 12.8 (H) 03/21/2025 HGB 9.4 (L) 03/21/2025 HCT 29.3 (L) 03/21/2025 MCV 95.1 03/21/2025 PLT 289 03/21/2025 Lab Results Component Value Date NA 136 03/21/2025 K 4.5 03/21/2025 CL 107 03/21/2025 CO2 18 (L) 03/21/2025 BUN 38 (H) 03/21/2025 CREATININE 1.40 (H) 03/21/2025 GLUCOSE 201 (H) 03/21/2025 CALCIUM 9.0 03/21/2025 PROT 6.8 03/14/2025 ALKPHOS 49 03/14/2025 AST 18 03/14/2025 ALT 9 03/14/2025 EGFR 36.9 (L) 03/21/2025 Pain Score: Patient resting with eyes closed and respirations are greater than 12 Transthoracic echocardiogram (TTE) complete with contrast, bubble, strain, and 3D PRN Result Date: 03/15/2025 Left Ventricle: Left ventricle size is normal. Normal wall thickness. Normal left ventricular systolic function. EF by 2D Simpsons Biplane is 57%. Normal wall motion. Right Ventricle: Right ventriclesize is normal. Normal systolic function. Aortic Valve: Mild (1+) regurgitation. Mitral Valve: Mildto moderate (1-2+) regurgitation. Tricuspid Valve: Mild to moderate (1-2+) regurgitation. RVSP is 35 mmHg. Left Atrium: Left atrium is mildly dilated..LA Vol Index is 37 ml/m2. 03/20/25 ECG 12-LEAD 03/20/2025 3:17 PM (Final) Impression Atrial fibrillation w rapid ventricular response, V-rate 135 Borderline QT prolongation No acute ischemic changes Electronically Signed On 03-20-2025 15:17:51 EDT by Jennifer Perry Signed by: Jennifer Perry DO on 03/20/2025 3:17 PM Equipment Requests: Additional Equipment Requests [1] Family History Problem Relation Name Age of Onset Diabetes Father Ed Shue Hypertension Father Ed Shue Diabetes Son Hi Nelson Hypertension Son Hi Nelson [employer] Phone: 1(319) 282-205608-09-2025 History and physical note* Miguel Hui DO - 03/20/2025 8:47 PM EDT Attending History and Physical Admit Date: 03/20/2025 PCP: Dorothy Medrano CHIEF COMPLAINT: Fall Reason for Admission: comminuted subtrochanteric fracture of the left proximal femur History Obtained From: patient HISTORY OF PRESENT ILLNESS: Patient is an 84-year-old female with past medical history of atrial fibrillation, type 2 diabetes,hyperlipidemia, hypertension, hypothyroidism, CKD stage III, peripheral neuropathy, diabetic foot ulcer, who was last seen in the hospital from 03/12/2025 until 03/15/2025 secondary to A-fib with RVR, NAYELY, NAGMA and hyperkalemia. Patient presented to the hospital on 03/20/2025 after falling last night. She lives alone and was unable to get up. She laid on the floor all night until home health nurse found her (being followed forthe wound). She states it was a trip and fall type incident without any syncope. Did not hit her head. No loss of consciousness but she is unable Jalil Krystal much surrounding the event. She remainson Eliquis for her atrial fibrillation. She states that she can feel her atrial fibrillation (she does have palpitations) however she cannot remember having palpitations prior to the event. She has no current palpitations or chest pain. No new dyspnea or cough. No GI/ symptoms reported. While in the emergency department, she obtained a nerve block for pain control. Her vital signs waxed and waned. Heart rate ranged between (61-115). Blood pressure stable. Saturating well on room air. BMP revealed hyperchloremia, metabolic acidosis (bicarb 16), creatinine of 1.7 (NAYELY, baseline creatinine around 1). Glucose found to be 350. Anion gap 15. CK2 53. WBC count 14.1. Hemoglobin 10.3 (normally about 11) she does have a left shift. A1c 6.8. Urinalysis negative for obvious infection. - Chest x-ray personally reviewed and without acute abnormality - X-ray of the femur (left) showed degenerative joint disease - More proximally, x-ray of the left hip showed a acute, moderately comminuted subtrochanteric fracture of the left proximal femur with possible slight intertrochanteric component with shortening of the distal fracture fragment - EKG personally reviewed showing A-fib with RVR - X-ray of the right tib-fib showed no evidence of fracture Patient was started on LR for hydration. Metoprolol for A-fib. Patient was seen by Ortho who recommends surgical repair of hip on 03/21/2025. *Last TTE completed 03/15/2025 showing an EF of 57%, normal RV function. Mild to moderate global valvular disease. Past Medical History: Medical History[1] Past Surgical History: Surgical History[2] Social History: Social History Socioeconomic History Marital status: Spouse name: Not on file Number of children: Not on file Years of education: Not on file Highest education level: Not on file Occupational History Not on file Tobacco Use Smoking status: Former Current packs/day: 0.00 Types: Cigarettes Quit date: 1965 Years since quittin.6 Smokeless tobacco: Never Vaping Use Vaping status: Never Used Substance and Sexual Activity Alcohol use: Yes Comment: drinks beer occasionally Drug use: Never Sexual activity: Not Currently Other Topics Concern Not on file Social History Narrative Not on file Social Drivers of Health Financial Resource Strain: Low Risk (03/20/2025) Overall Financial Resource Strain (CARDIA) Difficulty of Paying Living Expenses: Not hard at all Food Insecurity: No Food Insecurity (03/20/2025) Hunger Vital Sign Worried About Running Out of Food in the Last Year: Never true Ran Out of Food in the Last Year: Never true Transportation Needs: No Transportation Needs (03/20/2025) PRAPARE - Transportation Lack of Transportation (Medical): No Lack of Transportation (Non-Medical): No Physical Activity: Not on file Stress: No Stress Concern Present (03/20/2025) [employer] [place] [employer] - Occupational Stress Questionnaire Feeling of Stress : Not at all Social Connections: Not on file Intimate Partner Violence: Not At Risk (03/20/2025) Humiliation, Afraid, Rape, and Kick questionnaire Fear of Current or Ex-Partner: No Emotionally Abused: No Physically Abused: No Sexually Abused: No Housing Stability: Low Risk (03/20/2025) Housing Stability Vital Sign Unable to Pay for Housing in the Last Year: No Number of Times Moved in the Last Year: 1 Homeless in the Last Year: No Family History: Family History[3] Medications Prior to Admission: Current Medications[4] Medications Reconciliation: Medications were reviewed in chart but unable to verify accurate with patient Allergies: Allergies[5] REVIEW OF SYSTEMS: 10 point ROS obtained, as per HPI, otherwise NEG Vitals: BP 143/66 (BP Location: Right arm, Patient Position: Lying) Pulse 115 Temp 36.6 C (97.9 F) (Temporal) Resp 12 Ht 5' 10.75" (1.797 m) Wt 200 lb (90.7 kg) SpO2 99% BMI 28.09 kg/m BMI Classification: Overweight (BMI 25.0-29.9) Pulse Ox: SpO2 Av % Min: 97 % Max: 99 % Supplemental O2: PHYSICAL EXAM: Physical Exam Constitutional: Appearance: Normal appearance. HENT: Head: Normocephalic and atraumatic. Eyes: Extraocular Movements: Extraocular movements intact. Pupils: Pupils are equal, round, and reactive to light. Cardiovascular: Rate and Rhythm: Normal rate. Rhythm irregular. Pulmonary: Effort: No respiratory distress. Breath sounds: No wheezing. Abdominal: General: Abdomen is flat. Palpations: Abdomen is soft. Musculoskeletal: General: Swelling and deformity present. Cervical back: Normal range of motion. Neurological: General: No focal deficit present. Mental Status: She is alert and oriented to person, place, and time. DATA: CBC: Recent Labs 03/20/25 1159 WBC 14.1* RBC 3.41* HGB 10.3* HCT 31.3* MCV 91.8 RDW 14.8 PLT 279 BMP: Recent Labs 03/20/25 1159 NA 140 K 5.0 CL 109* CO2 16* BUN 43* CREATININE 1.70* GLUCOSE 350* CALCIUM 9.4 ANIONGAP 15* LIVER PROFILE:No results for input(s): "AST", "ALT", "BILITOT", "ALKPHOS", "PROT" in the last 72 hours. No lab exists for component: "LABALBU" PT/INR: No results for input(s): "PROTIME", "INR" in the last 72 hours. CARDIAC ENZYMES: No results for input(s): "TROPONINI" in the last 72 hours. Procalcitonin: No results found for: "PROCAL" Urine Culture: Results for orders placed or performed during the hospital encounter of 01/25/25 Urine culture Collection Time: 01/26/25 12:22 PM Specimen: Urine, Clean Catch Result Value Ref Range Urine Culture Normal urogenital fabio present COVID-19 PCR: No results for input(s): "COVID19" in the last 72 hours. I reviewed: [x] laboratory results [x] radiographic results At the time of today's encounter. Pt was advised of the results. Data: (CAT1) Reviewed 3 or more notes from different specialty or health system (each=1). (CAT1) Reviewed 3 or more labs/studies ordered by another provider not previously counted (each=1, panels count as 1). (CAT1) Ordered 3 or more new labs and/or studies (each=1, panels count as 1). (CAT2) EKG reviewed & showed Afib as interpreted by me. (CAT2) CXR reviewed & showed nothing acute as interpreted by me. (CAT3) Discussed with ED provider, Dr. Jennifer Perry, regarding patient's eval & mgmt thus far, and agree with the plan for hospitalization. (LOW: 2x CAT1 or independent historian MOD: 3x CAT1 or 1x CAT3 EXTENSIVE: 3x CAT1 and 1x CAT3) Assessment Discussed management with the ED provider and agree with hospitalization. Acute, acute on chronic, unstable/uncontrolled chronic problems/diagnoses: Comminuted subtrochanteric fracture of the left proximal femur NAYELY superimposed on CKD Metabolic acidosis Traumatic rhabdomyolysis Uncontrolled type 2 diabetes w/peripheral neuropathy + diabetic foot ulcer, Stable chronic problems affecting care, new non-acute diagnoses: atrial fibrillation on Eliquis Hyperlipidemia Hypertension hypothyroidism, Plan As a result of the above findings & factors, the following mgmt was pursued: - Patient noted to have rhabdomyolysis. This superimposed with her CKD and fall likely triggered her acute kidney injury. Started on bicarb drip. Repeat lab work done on 930/10 PM shows significant improvement in her renal function/bicarbonate levels. Otherwise her atrial fibrillation is at baseline. I recommend continuing her metoprolol prior to surgery. That being said, I did review her echocardiogram and EKG. She appears stable for surgery at this time and has been optimized is much as possible. I believe delaying surgery will only lead to further weakness and decompensation. Therefore I recommend proceeding with surgery per orthopedics recommendations. She is optimized as possible. PT per orthopedics clearance. Okay to hold Eliquis prior to surgery. -Continue fluids to treat rhabdomyolysis. Monitor for evidence of volume overload. -Continue Lantus, sliding scale insulin for diabetes. - am labs, replace lytes prn - PT/OT/CM/SW - delirium precautions: limit nighttime disturbances - DVT prophylaxis: Held for surgery Complexity: Acute illness or injury posing a threat to life or body function (HIGH). Risk: Admission to hospital-level care was considered or occurred (HIGH). Consult to surgery for emergency major surgery, or major surgery with identified patient or procedural risk factors, was considered or occurred (HIGH). Advance Directive: Full Code Anticipated Discharge - Date - 03/24/25 - Location - Skilled Facility - Pending the following - Ortho repair of hip Total time spent (which include face to face and non face to face encounters) : 71 minutes. Extended Emergency Contact Information Primary Emergency Contact: Hi Nelson Relation: Son Preferred language: Burmese Metal Bumper needed? No Secondary Emergency Contact: Melba Black [facility] [place] [employer] Relation: Daughter [employer] Hanna Nelson : 1940 Primary Care Physician: Dorothy Medrano The patient and/or family/surrogate voluntarily agreed to participate in ACP services. Patient s cognitive capacity: Alert and oriented Code Status: [X] [FULL CODE - Continue all advanced life support: CPR,intubation,invasive procedures] [_] [DNR-CCA - DO NOT do CPR, intubation] [_] [DNR-DRILL BIT SHARPENER - Comfort care only] [_] DNR form [was/was not] signed Summary of discussion: I did verify with patient that she is okay with intubation and resuscitation. She confirmed this. She will remain full code. I answered all the patient/family questions that I could within the range and scope of the current medical situation. We discussed the medical conditions, risks, benefits, outcomes, and goals of careat this time for the patient's medical issues at hand in the face of the patient's chronic issues and current presentation. Total time spent: 3 minutes were spent discussing the patient's resuscitation status, advance care planning, and end of life care, with patient and/or family/surrogate. Miguel Hui DO Division of Hospitalist Medicine [facility] [1] Past Medical History: Diagnosis Date Arthritis Atrial fibrillation (HCC) Diabetes mellitus (HCC) Hyperlipidemia Hypertension Hypothyroidism Neuropathy [2] Past Surgical History: Procedure Laterality Date BACK SURGERY CHOLECYSTECTOMY [3] Family History Problem Relation Name Age of Onset Diabetes Father Ed Shue Hypertension Father Ed Shue Diabetes Son Hi Nelson Hypertension Son Hi Nelson [4] Current Facility-Administered Medications: acetaminophen (Tylenol) tablet 650 mg, 650 mg, Oral, q6h PRN OR acetaminophen (Tylenol) suppository 650 mg, 650 mg, Rectal, q6h PRN, Janet Rosemarie, DO atorvastatin (Lipitor) tablet 20 mg, 20 mg, Oral, Nightly, Janet Rosemarie, DO dextrose 5 % infusion, 100 mL/hr, IntraVENous, PRN, Janet Rosemarie, DO dextrose 50 % solution 12.5 g, 12.5 g, IntraVENous, PRN, Janet Houston, DO gabapentin (Neurontin) capsule 300 mg, 300 mg, Oral, BID, Janet Houston, glucagon (human recombinant) injection 1 mg, 1 mg, IntraMUSCular, PRN, Janet Houston, DO glucose oral gel 15 g, 15 g, Oral, PRN, Janet Garciaire, DO insulin glargine (Lantus) injection 26 Units, 26 Units, SubCUTAneous, Nightly, Janet Houston, Insulin Lispro (Humalog) injection 0-6 Units, 0-6 Units, SubCUTAneous, TID WC AND Insulin Lispro (Humalog) injection 0-6 Units, 0-6 Units, SubCUTAneous, Nightly, Janet Houston, Lactobacillus 0.05-0.05 MG 4 tablet, 4 tablet, Oral, Daily, Janet Houston, [START ON 03/21/2025] levothyroxine (Synthroid, Levoxyl) tablet 25 mcg, 25 mcg, Oral, qAM , Maday, metoprolol tartrate (Lopressor) tablet 25 mg, 25 mg, Oral, BID, Janet Houston, ondansetron ODT (Zofran-ODT) disintegrating tablet 4 mg, 4 mg, Oral, q8h PRN OR ondansetron (Zofran) injection 4 mg, 4 mg, IntraVENous, q6h PRN, Janet Houston, polyethylene glycol (PEG) 3350 (Miralax) packet 17 g, 17 g, Oral, Daily PRN, Janet Houston DO [START ON 03/21/2025] semaglutide (Ozempic) injection 0.5 mg, 0.5 mg, SubCUTAneous, Weekly, Janet Houston DO [START ON 03/21/2025] trospium (Sanctura) tablet 20 mg, 20 mg, Oral, qAM AC, Janet Houston, [5] Allergies Allergen Reactions Tape Rash [facility] Work Phone: [phone] [facility]08-09-2025 History and physical note* Miguel Hui, DO - 03/20/2025 8:47 PM EDT Attending History and Physical Admit Date: 03/20/2025 PCP: Dorothy Medrano CHIEF COMPLAINT: Fall Reason for Admission: comminuted subtrochanteric fracture of the left proximal femur History Obtained From: patient HISTORY OF PRESENT ILLNESS: Patient is an 84-year-old female with past medical history of atrial fibrillation, type 2 diabetes,hyperlipidemia, hypertension, hypothyroidism, CKD stage III, peripheral neuropathy, diabetic foot ulcer, who was last seen in the hospital from 03/12/2025 until 03/15/2025 secondary to A-fib with RVR, NAYELY, NAGMA and hyperkalemia. Patient presented to the hospital on 03/20/2025 after falling last night. She lives alone and was unable to get up. She laid on the floor all night until home health nurse found her (being followed forthe wound). She states it was a trip and fall type incident without any syncope. Did not hit her head. No loss of consciousness but she is unable Jalil Krystal much surrounding the event. She remainson Eliquis for her atrial fibrillation. She states that she can feel her atrial fibrillation (she does have palpitations) however she cannot remember having palpitations prior to the event. She has no current palpitations or chest pain. No new dyspnea or cough. No GI/ symptoms reported. While in the emergency department, she obtained a nerve block for pain control. Her vital signs waxed and waned. Heart rate ranged between (61-115). Blood pressure stable. Saturating well on room air. BMP revealed hyperchloremia, metabolic acidosis (bicarb 16), creatinine of 1.7 (NAYELY, baseline creatinine around 1). Glucose found to be 350. Anion gap 15. CK2 53. WBC count 14.1. Hemoglobin 10.3 (normally about 11) she does have a left shift. A1c 6.8. Urinalysis negative for obvious infection. - Chest x-ray personally reviewed and without acute abnormality - X-ray of the femur (left) showed degenerative joint disease - More proximally, x-ray of the left hip showed a acute, moderately comminuted subtrochanteric fracture of the left proximal femur with possible slight intertrochanteric component with shortening of the distal fracture fragment - EKG personally reviewed showing A-fib with RVR - X-ray of the right tib-fib showed no evidence of fracture Patient was started on LR for hydration. Metoprolol for A-fib. Patient was seen by Ortho who recommends surgical repair of hip on 03/21/2025. *Last TTE completed 03/15/2025 showing an EF of 57%, normal RV function. Mild to moderate global valvular disease. Past Medical History: Medical History[1] Past Surgical History: Surgical History[2] Social History: Social History Socioeconomic History Marital status: Spouse name: Not on file Number of children: Not on file Years of education: Not on file Highest education level: Not on file Occupational History Not on file Tobacco Use Smoking status: Former Current packs/day: 0.00 Types: Cigarettes Quit date: 1964 Years since quittin.6 Smokeless tobacco: Never Vaping Use Vaping status: Never Used Substance and Sexual Activity Alcohol use: Yes Comment: drinks beer occasionally Drug use: Never Sexual activity: Not Currently Other Topics Concern Not on file Social History Narrative Not on file Social Drivers of Health Financial Resource Strain: Low Risk (03/20/2025) Overall Financial Resource Strain (CARDIA) Difficulty of Paying Living Expenses: Not hard at all Food Insecurity: No Food Insecurity (03/20/2025) Hunger Vital Sign Worried About Running Out of Food in the Last Year: Never true Ran Out of Food in the Last Year: Never true Transportation Needs: No Transportation Needs (03/20/2025) PRAPARE - Transportation Lack of Transportation (Medical): No Lack of Transportation (Non-Medical): No Physical Activity: Not on file Stress: No Stress Concern Present (03/20/2025) [employer] [place] [employer] - Occupational Stress Questionnaire Feeling of Stress : Not at all Social Connections: Not on file Intimate Partner Violence: Not At Risk (03/20/2025) Humiliation, Afraid, Rape, and Kick questionnaire Fear of Current or Ex-Partner: No Emotionally Abused: No Physically Abused: No Sexually Abused: No Housing Stability: Low Risk (03/20/2025) Housing Stability Vital Sign Unable to Pay for Housing in the Last Year: No Number of Times Moved in the Last Year: 1 Homeless in the Last Year: No Family History: Family History[3] Medications Prior to Admission: Current Medications[4] Medications Reconciliation: Medications were reviewed in chart but unable to verify accurate with patient Allergies: Allergies[5] REVIEW OF SYSTEMS: 10 point ROS obtained, as per HPI, otherwise NEG Vitals: BP 143/66 (BP Location: Right arm, Patient Position: Lying) Pulse 115 Temp 36.6 C (97.9 F) (Temporal) Resp 12 Ht 5' 10.75" (1.797 m) Wt 200 lb (90.7 kg) SpO2 99% BMI 28.09 kg/m BMI Classification: Overweight (BMI 25.0-29.9) Pulse Ox: SpO2 Av % Min: 97 % Max: 99 % Supplemental O2: PHYSICAL EXAM: Physical Exam Constitutional: Appearance: Normal appearance. HENT: Head: Normocephalic and atraumatic. Eyes: Extraocular Movements: Extraocular movements intact. Pupils: Pupils are equal, round, and reactive to light. Cardiovascular: Rate and Rhythm: Normal rate. Rhythm irregular. Pulmonary: Effort: No respiratory distress. Breath sounds: No wheezing. Abdominal: General: Abdomen is flat. Palpations: Abdomen is soft. Musculoskeletal: General: Swelling and deformity present. Cervical back: Normal range of motion. Neurological: General: No focal deficit present. Mental Status: She is alert and oriented to person, place, and time. DATA: CBC: Recent Labs 03/20/25 1159 WBC 14.1* RBC 3.41* HGB 10.3* HCT 31.3* MCV 91.8 RDW 14.8 PLT 279 BMP: Recent Labs 03/20/25 1159 NA 140 K 5.0 CL 109* CO2 16* BUN 43* CREATININE 1.70* GLUCOSE 350* CALCIUM 9.4 ANIONGAP 15* LIVER PROFILE:No results for input(s): "AST", "ALT", "BILITOT", "ALKPHOS", "PROT" in the last 72 hours. No lab exists for component: "LABALBU" PT/INR: No results for input(s): "PROTIME", "INR" in the last 72 hours. CARDIAC ENZYMES: No results for input(s): "TROPONINI" in the last 72 hours. Procalcitonin: No results found for: "PROCAL" Urine Culture: Results for orders placed or performed during the hospital encounter of 01/25/25 Urine culture Collection Time: 01/26/25 12:22 PM Specimen: Urine, Clean Catch Result Value Ref Range Urine Culture Normal urogenital fabio present COVID-19 PCR: No results for input(s): "COVID19" in the last 72 hours. I reviewed: [x] laboratory results [x] radiographic results At the time of today's encounter. Pt was advised of the results. Data: (CAT1) Reviewed 3 or more notes from different specialty or health system (each=1). (CAT1) Reviewed 3 or more labs/studies ordered by another provider not previously counted (each=1, panels count as 1). (CAT1) Ordered 3 or more new labs and/or studies (each=1, panels count as 1). (CAT2) EKG reviewed & showed Afib as interpreted by me. (CAT2) CXR reviewed & showed nothing acute as interpreted by me. (CAT3) Discussed with ED provider, Dr. Jennifer Perry, regarding patient's eval & mgmt thus far, and agree with the plan for hospitalization. (LOW: 2x CAT1 or independent historian MOD: 3x CAT1 or 1x CAT3 EXTENSIVE: 3x CAT1 and 1x CAT3) Assessment Discussed management with the ED provider and agree with hospitalization. Acute, acute on chronic, unstable/uncontrolled chronic problems/diagnoses: Comminuted subtrochanteric fracture of the left proximal femur NAYELY superimposed on CKD Metabolic acidosis Traumatic rhabdomyolysis Uncontrolled type 2 diabetes w/peripheral neuropathy + diabetic foot ulcer, Stable chronic problems affecting care, new non-acute diagnoses: atrial fibrillation on Eliquis Hyperlipidemia Hypertension hypothyroidism, Plan As a result of the above findings & factors, the following mgmt was pursued: - Patient noted to have rhabdomyolysis. This superimposed with her CKD and fall likely triggered her acute kidney injury. Started on bicarb drip. Repeat lab work done on 930/10 PM shows significant improvement in her renal function/bicarbonate levels. Otherwise her atrial fibrillation is at baseline. I recommend continuing her metoprolol prior to surgery. That being said, I did review her echocardiogram and EKG. She appears stable for surgery at this time and has been optimized is much as possible. I believe delaying surgery will only lead to further weakness and decompensation. Therefore I recommend proceeding with surgery per orthopedics recommendations. She is optimized as possible. PT per orthopedics clearance. Okay to hold Eliquis prior to surgery. -Continue fluids to treat rhabdomyolysis. Monitor for evidence of volume overload. -Continue Lantus, sliding scale insulin for diabetes. - am labs, replace lytes prn - PT/OT/CM/SW - delirium precautions: limit nighttime disturbances - DVT prophylaxis: Held for surgery Complexity: Acute illness or injury posing a threat to life or body function (HIGH). Risk: Admission to hospital-level care was considered or occurred (HIGH). Consult to surgery for emergency major surgery, or major surgery with identified patient or procedural risk factors, was considered or occurred (HIGH). Advance Directive: Full Code Anticipated Discharge - Date - 03/24/25 - Location - Skilled Facility - Pending the following - Ortho repair of hip Total time spent (which include face to face and non face to face encounters) : 71 minutes. Extended Emergency Contact Information Primary Emergency Contact: LselieHi Relation: Son Preferred language: Burmese Metal Bumper needed? No Secondary Emergency Contact: Melba [facility] Mobile Relation: Daughter [employer] Hanna Nelson : 1940 Primary Care Physician: Dorothy Medrano The patient and/or family/surrogate voluntarily agreed to participate in ACP services. Patient s cognitive capacity: Alert and oriented Code Status: [X] [FULL CODE - Continue all advanced life support: CPR,intubation,invasive procedures] [_] [DNR-CCA - DO NOT do CPR, intubation] [_] [DNR-DRILL BIT SHARPENER - Comfort care only] [_] DNR form [was/was not] signed Summary of discussion: I did verify with patient that she is okay with intubation and resuscitation. She confirmed this. She will remain full code. I answered all the patient/family questions that I could within the range and scope of the current medical situation. We discussed the medical conditions, risks, benefits, outcomes, and goals of careat this time for the patient's medical issues at hand in the face of the patient's chronic issues and current presentation. Total time spent: 3 minutes were spent discussing the patient's resuscitation status, advance care planning, and end of life care, with patient and/or family/surrogate. Miguel Hui DO Division of Hospitalist Medicine [facility] [1] Past Medical History: Diagnosis Date Arthritis Atrial fibrillation (HCC) Diabetes mellitus (HCC) Hyperlipidemia Hypertension Hypothyroidism Neuropathy [2] Past Surgical History: Procedure Laterality Date BACK SURGERY CHOLECYSTECTOMY [3] Family History Problem Relation Name Age of Onset Diabetes Father Ed Shue Hypertension Father Ed Shue Diabetes Son Hi Nelson Hypertension Son Hi Nelson [4] Current Facility-Administered Medications: acetaminophen (Tylenol) tablet 650 mg, 650 mg, Oral, q6h PRN OR acetaminophen (Tylenol) suppository 650 mg, 650 mg, Rectal, q6h PRN, Jante Rosemarie, DO atorvastatin (Lipitor) tablet 20 mg, 20 mg, Oral, Nightly, Janet Rosemarie, DO dextrose 5 % infusion, 100 mL/hr, IntraVENous, PRN, Janet Garciaire, DO dextrose 50 % solution 12.5 g, 12.5 g, IntraVENous, PRN, Janet Rosemarie, DO gabapentin (Neurontin) capsule 300 mg, 300 mg, Oral, BID, Janet Rosemarie, DO glucagon (human recombinant) injection 1 mg, 1 mg, IntraMUSCular, PRN, Janet Rosemarie, DO glucose oral gel 15 g, 15 g, Oral, PRN, Janet Rosemarie, DO insulin glargine (Lantus) injection 26 Units, 26 Units, SubCUTAneous, Nightly, Janet Padgettntire, DO Insulin Lispro (Humalog) injection 0-6 Units, 0-6 Units, SubCUTAneous, TID WC AND Insulin Lispro (Humalog) injection 0-6 Units, 0-6 Units, SubCUTAneous, Nightly, Janet Garciaire, DO Lactobacillus 0.05-0.05 MG 4 tablet, 4 tablet, Oral, Daily, Janet Garciaire, DO [START ON 03/21/2025] levothyroxine (Synthroid, Levoxyl) tablet 25 mcg, 25 mcg, Oral, qAM AC, OrlinuaMcIntire, DO metoprolol tartrate (Lopressor) tablet 25 mg, 25 mg, Oral, BID, Janet Rosemarie, DO ondansetron ODT (Zofran-ODT) disintegrating tablet 4 mg, 4 mg, Oral, q8h PRN OR ondansetron (Zofran) injection 4 mg, 4 mg, IntraVENous, q6h PRN, Janet Houston DO polyethylene glycol (PEG) 3350 (Miralax) packet 17 g, 17 g, Oral, Daily PRN, Janet Houston DO [START ON 03/21/2025] semaglutide (Ozempic) injection 0.5 mg, 0.5 mg, SubCUTAneous, Weekly, Janet Houston DO [START ON 03/21/2025] trospium (Sanctura) tablet 20 mg, 20 mg, Oral, qAM AC, Janet Houston DO [5] Allergies Allergen Reactions Tape Rash documented in this [facility]08-09-2025 Nurse Note* Arelis Martinez RN - 03/20/2025 8:25 PM EDT Pts son present during admission, pts son stated he will notify pts PCP of admission to [facility]. [id number] Consult note* Willi Sullivan MD - 03/20/2025 7:19 PM EDT Images from the original note were not included. Ortho Consult Patient: Hanna Nelson Date of : 1940 Acct: [id number] PCP: Dorothy Medrano Date of Admission: 03/20/2025 Date of Service: Pt seen/examined on 03/20/2025 Chief Complaint: Left hip pain History Of Present Illness: 84 y.o. female who presents with left hip pain after a fall from standing. She was ambulating in her living room and tripped. The patient was unable to get up and had to call for help. Denies significant pain besides left hip. Denies head trauma and loss of consciousness. Denies numbness and tingling in affected extremity. She has baseline diabetic neuropathy of the bilateral lower extremities with diminished sensation in the bilateral feet most prominent about the plantar foot in the tibial nerve distribution. PMH of T2DM now well controlled. Lives alone and is independent of ADLs but has help from family with iADLs. Recently admitted to [facility] for cellulitis. She has Charcot arthropathy of the bilateral feetand was recently fitted with a right foot brace by [employer] that she is still getting used to. She has a known plantar ulcer of the right foot which is being managed by wound care. It has not changed in. Send she denies fevers, chills, pain about the foot. Orthopaedic surgery history of right hip cephalomedullary nail approximately 15 years ago. Patient cannot recall the surgeon. Does not have a preference and is happy to see on-call summa surgeon. Patient ambulation status: mild difficulty and ambulates with: walker. Antiplatelets/Anticoagulation includes: Eliquis, last taken this morning. Hx from chart and/or Pt. Past Medical History: Medical History[1] Past Surgical History: Surgical History[2] Home Medications: Prior to Admission medications Medication Sig Start Date End Date Taking? Authorizing Provider Alcohol Swabs (Alcohol Prep) 70 % pads 1 Pad 3 times daily. 09/23/24 Herman Pepper, DO apixaban (Eliquis) 5 MG tablet Take 5 mg by mouth 2 times daily. Historical Provider, atorvastatin (Lipitor) 20 MG tablet Take 20 mg by mouth daily. Historical Provider, Blood Glucose Monitoring Suppl (Blood Glucose Monitor System) w/Device kit Check glucose 3x daily 09/23/24 Herman Pepper, DO Continuous Glucose Sensor (FreeStyle Javier 3 Plus Sensor) misc 1 each every 15 days. 12/24/24 Priscila Laguerre, 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 - NUCLEAR PLANT INSTRUMENT TECHNICIAN gabapentin (Neurontin) 300 MG capsule Take 300 mg by mouth 2 times daily. Historical Provider, glucose blood test strip Use as instructed 09/17/24 09/17/25 Dmaian Loza DO insulin degludec-liraglutide (Xultophy) 100-3.6 UNIT-MG/ML pen Inject 30 Units under the skin daily. Historical Provider, insulin glargine (Lantus) 100 UNIT/ML injection Inject 26 Units under the skin Nightly. 03/15/25 03/15/26 Deny Barton MD Lactobacillus 0.05-0.05 MG tablet Take 4 tablets by mouth daily. 02/02/25 Katey Beard MD Lancets Check glucose x3 daily 09/23/24 Herman Pepper DO levothyroxine (Tirosint) 112 MCG capsule Take by mouth every morning (before breakfast). HistoricalProMD brook metFORMIN (Glucophage) 500 MG tablet Take 1 tablet (500 mg) by mouth 2 times daily (with meals). 09/24/24 04/22/25 Herman Pepper DO metoprolol tartrate (Lopressor) 25 MG tablet Take 1 tablet (25 mg) by mouth 2 times daily. 03/15/25 05/14/25 Deny Barton MD oxybutynin (Ditropan) 5 MG tablet Take 10 mg by mouth daily. Historical Provider, semaglutide (Ozempic) 2 MG/3ML solution pen-injector Inject 0.5 mg under the skin 1 (one) time per week. 12/24/24 12/24/25 Priscila Laguerre, 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 - NUCLEAR PLANT INSTRUMENT TECHNICIAN atenolol (Tenormin) 25 MG tablet Take 1 tablet (25 mg) by mouth 2 times daily. Patient not taking: Reported on 03/09/2025 12/05/24 03/15/25 Shane Rodriguez MD insulin glargine (Lantus) 100 UNIT/ML injection Inject 32 Units under the skin Nightly. 12/05/24 03/15/25 Shane Rodriguez MD Insulin Lispro (Humalog) 100 UNIT/ML solution injection Inject 8 Units under the skin 3 times daily(with meals). Patient not taking: Reported on 03/15/2025 02/01/25 03/15/25 Katey Beard MD sulfamethoxazole-trimethoprim (Bactrim) 400-80 MG tablet Take 1 tablet by mouth 2 times daily. 03/15/25 Historical Provider, Current Hospital Medications: Current Medications[3] Allergies: Tape Social History: Social History Socioeconomic History Marital status: Spouse name: Not on file Number of children: Not on file Years of education: Not on file Highest education level: Not on file Occupational History Not on file Tobacco Use Smoking status: Former Current packs/day: 0.00 Types: Cigarettes Quit date: 1965 Years since quittin.6 Smokeless tobacco: Never Vaping Use Vaping status: Never Used Substance and Sexual Activity Alcohol use: Yes Comment: drinks bee occasionally Drug use: Never Sexual activity: Not on file Other Topics Concern Not on file Social History Narrative Not on file Social Drivers of Health Financial Resource Strain: Not on file Food Insecurity: No Food Insecurity (12/03/2024) Hunger Vital Sign Worried About Running Out of Food in the Last Year: Never true Ran Out of Food in the Last Year: Never true Transportation Needs: No Transportation Needs (12/03/2024) PRAPARE - Transportation Lack of Transportation (Medical): No Lack of Transportation (Non-Medical): No Physical Activity: Not on file Stress: Not on file Social Connections: Not on file Intimate Partner Violence: Not At Risk (03/13/2025) Humiliation, Afraid, Rape, and Kick questionnaire Fear of Current or Ex-Partner: No Emotionally Abused: No Physically Abused: No Sexually Abused: No Housing Stability: Low Risk (12/03/2024) Housing Stability Vital Sign Unable to Pay for Housing in the Last Year: No Number of Times Moved in the Last Year: 1 Homeless in the Last Year: No Family History: Family History[4] Further Family History is noncontributory to this injury. REVIEW OF SYSTEMS: Review of Systems - General ROS: negative for - chills, fatigue, fever, malaise or night sweats Psychological ROS: negative Ophthalmic ROS: negative ENT ROS: negative for - headaches or sore throat Hematological and Lymphatic ROS: negative for - bleeding problems or blood clots Respiratory ROS: no cough, shortness of breath, or wheezing Cardiovascular ROS: no chest pain or dyspnea on exertion Gastrointestinal ROS: negative Musculoskeletal ROS: See HPI Neurological ROS: negative for - bowel and bladder control changes, gait disturbance or numbness/tingling All other systems reviewed and are negative PHYSICAL EXAM: BP 143/66 (BP Location: Right arm, Patient Position: Lying) Pulse 115 Temp 36.6 C (97.9 F) (Temporal) Resp 12 Ht 1.797 m (5' 10.75") Wt 90.7 kg (200 lb) SpO2 99% BMI 28.09 kg/m GENERAL APPEARANCE: Awake and oriented x 4/4. No acute distress, except appropriate to injury. MOOD AND AFFECT: Calm appropriate to situation GAIT AND STATION: Patient is in bed and unable to ambulate secondary to known injury. COORDINATION and BALANCE: Patient is grossly coordinated unable to ambulate secondary to known injury. Right Upper Extremity: -No obvious pain or deformity to inspection with normal joint range of motion, stability, and muscle strength except noted below -No TTP over clavicle, shoulder, humerus, elbow, forearm, wrist, hand, or fingers -TTP: nontender throughout extremity -Radial pulse palpable -SILT in radial/median/ ulnar nerve distributions -Motor + AIN/PIN/ulnar nerve functions -Skin intact except where noted below -Painless pROM at shoulder/elbow/wrist Atraumatic. There is deformities of the IP joints of the bilateral hands secondary to arthritis. These are nonpainful and unchanged from her baseline Left Upper Extremity: -No obvious pain or deformity to inspection with normal joint range of motion, stability, and muscle strength except noted below -No TTP over clavicle, shoulder, humerus, elbow, forearm, wrist, hand, or fingers -TTP: nontender throughout extremity -Radial pulse palpable -SILT in radial/median/ ulnar nerve distributions -Motor + AIN/PIN/ulnar nerve functions -Skin intact except where noted below -Painless pROM at shoulder/elbow/wrist Atraumatic. There is deformity of the IP joints of the bilateral hands secondary to arthritis. These are nonpainful and unchanged from her baseline Left lower Extremity: -No obvious pain or deformity to inspection with normal joint range of motion, stability, and muscle strength except noted below. Extremity shortened and externally rotated. Skin over lateral hip is clean and dry without signs of wounds or breakdown. -No TTP over knee, tibia, lateral mal, medial mal, calc, midfoot, forefoot -TTP: hip -Pulse: DP Palpable -SILT in the superficial peroneal, deep peroneal, tibial, sural, saphenous nerve distributions -Motor function of tibialis anterior, extensor hallucis longus, and gactrocsoleus complex intact -Skin intact except where noted below -Painless pROM at knee/ankle - + logroll No ecchymosis, laceration, abrasion over the left hip. There is pain with logroll and passive rangeof motion. There is a chronic deformity of the left ankle which is in valgus secondary to her baseline Charcot arthropathy. Patient states that this is nonpainful and not changed from her baseline. There is dense neuropathy about the foot with most diminished sensation in the tibial nerve distribution however is grossly sensory intact about the foot and is able to feel the examiner touching her. She denies any new sensory changes since her fall. 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 There is no expressible purulence or drainage from the wound and no deep fluctuance. There is no warmth or proximal streaking erythema associated with the ulcer. Right lower Extremity: -No obvious pain or deformity to inspection with normal joint range of motion, stability, and muscle strength except noted below -No TTP over pelvis, hip, thigh, knee, tibia, lateral mal, medial mal, calc, midfoot, forefoot -TTP: Nontender throughout extremity -Pulse: DP Palpable, -SILT in the superficial peroneal, deep peroneal, tibial, sural, saphenous nerve distributions -Motor function of quad, tibialis anterior, extensor hallucis longus, and gactrocsoleus complex intact -Skin intact except where noted below -Painless pROM at hip/knee/ankle Atraumatic. There is an ulcer over the plantar midfoot which is unchanged from the patient's baseline. She is being treated for this ulcer. There is no expressible purulence or active drainage no associated erythema or induration and no proximal streaking erythema. Labs: CBC: Lab Results Component Value Date WBC 14.1 (H) 03/20/2025 RBC 3.41 (L) 03/20/2025 BMP: Lab Results Component Value Date GLUCOSE 350 (H) 03/20/2025 CO2 16 (L) 03/20/2025 BUN 43 (H) 03/20/2025 CREATININE 1.70 (H) 03/20/2025 CALCIUM 9.4 03/20/2025 PT/INR: No results found for: "PT", "INR", "APTT" Type and Screen: No results found for: "RH", "LABANTI" CRP: No results found for: "CRP" ESR: No results found for: "SEDRATE" HgBA1c: No components found for: "LABA1C" The above labs were reviewed by me. Radiology: The below images were independently reviewed and interpreted XR: Pelvis: There is an acute comminuted left intertrochanteric fracture with subtrochanteric extension. There is posterior displacement of the proximal fragment. There is no other acute fracture or dislocation of bony pelvis. Pubic symphysis and bilateral SI joints not appear widened. There is a remote appearing fractures of the bilateral inferior pubic rami with evidence of malunion. There is a right hip cephalomedullary nail that appears to be well- fixed without evidence of hardware failure failure fracture or displacement and associated heterotopic ossification about the right sided greater trochanter. Left femur: There is no acute fracture or dislocation of the left distal femur. There is osteoarthritis with joint space narrowing about the left knee and what appears to be remote malunion of the left proximal fibula. Right tibia/fibula: There is no acute fracture or dislocation of the right tibia and fibula. There is osteoarthritis of the right knee with medial compartment joint space narrowing and associated osteophytes and squaring of the femoral condyles. Distal aspect of right hip cephalomedullary nail is visualized in the distal femur. Radiology report reviewed. ASSESSMENT: 84 y.o. female with left intertrochanteric femur fracture with subtrochanteric extension PLAN: -Plan for OR 03/21/2025 for left hip cephalomedullary nail -NPO at Midnight 03/21/2025 -Clear per medicine pending -Consented -Pre-op workup in process -Ice -Bedrest - Recommend mcgowan -Admitted to medicine -Pain control & medical management per primary -Please hold DVT prophylaxis in anticipation of OR -Please comment on clearance in case of OR, page ortho vp information technology with clearance status Alma Delia Bernardo MD Orthopaedic Surgery PGY-2 Epic Chat I saw and evaluated the patient, participating in the [place] portions of the service. I reviewed the resident s note. I agree with the resident s findings and plan. I met with Hanna to discuss my recommendation for surgery, the other treatment options available and the risks of the surgery itself as well as to detail the expected post-operative course. I explained the the injury required placement of malick within the femur. The risks of the proposed above procedure were discussed including but not limited to the risks of reactions to medications given for surgery, the risk of blood loss, infection, damage to normal structures that can lead to long-term problems of pain and/or dysfunction, need for additional procedures, painful or prominent hardware which could require removal, failure of fixation which would require revision,the possibility of fracture nonunion, malunion and late and/or chronic. In addition potentially life threatening complications (DVT, PE, MO, stroke, and even ) at the time of surgery and after surgery were discussed. Hanna understands that no guarantees with regard to surgical outcome can be given and none were implied. Hanna was given the opportunity to ask questions and consider all of the treatment options available. Hanna would like to proceed with the above mentioned procedure. Willi Sullivan MD [1] Past Medical History: Diagnosis Date Arthritis Atrial fibrillation (HCC) Diabetes mellitus (HCC) Hyperlipidemia Hypertension Hypothyroidism Neuropathy [2] Past Surgical History: Procedure Laterality Date BACK SURGERY CHOLECYSTECTOMY [3] Current Facility-Administered Medications: acetaminophen (Tylenol) tablet 650 mg, 650 mg, Oral, q6h PRN OR acetaminophen (Tylenol) suppository 650 mg, 650 mg, Rectal, q6h PRN, Janet Rosemarie, DO atorvastatin (Lipitor) tablet 20 mg, 20 mg, Oral, Nightly, Janet Rosemarie, DO dextrose 5 % infusion, 100 mL/hr, IntraVENous, PRN, Janet Rosemarie, DO dextrose 50 % solution 12.5 g, 12.5 g, IntraVENous, PRN, Janet Rosemarie, DO gabapentin (Neurontin) capsule 300 mg, 300 mg, Oral, BID, Janet Rosemarie, DO glucagon (human recombinant) injection 1 mg, 1 mg, IntraMUSCular, PRN, Janet Rosemarie, DO glucose oral gel 15 g, 15 g, Oral, PRN, Janet Rosemarie, DO insulin glargine (Lantus) injection 26 Units, 26 Units, SubCUTAneous, Nightly, Janet Rosemarie, DO Insulin Lispro (Humalog) injection 0-6 Units, 0-6 Units, SubCUTAneous, TID WC AND Insulin Lispro (Humalog) injection 0-6 Units, 0-6 Units, SubCUTAneous, Nightly, Janet Rosemarie, DO Lactobacillus 0.05-0.05 MG 4 tablet, 4 tablet, Oral, Daily, Janet Padgettntire, DO [START ON 03/21/2025] levothyroxine (Synthroid, Levoxyl) tablet 25 mcg, 25 mcg, Oral, qAM AC, JobrianuaMcIntire, DO metoprolol tartrate (Lopressor) tablet 25 mg, 25 mg, Oral, BID, Janet Rosemarie, DO ondansetron ODT (Zofran-ODT) disintegrating tablet 4 mg, 4 mg, Oral, q8h PRN OR ondansetron (Zofran) injection 4 mg, 4 mg, IntraVENous, q6h PRN, Janet Rosemarie, DO polyethylene glycol (PEG) 3350 (Miralax) packet 17 g, 17 g, Oral, Daily PRN, Janet Rosemarie, DO [START ON 03/21/2025] semaglutide (Ozempic) injection 0.5 mg, 0.5 mg, SubCUTAneous, Weekly, Janet Garciaire, DO [START ON 03/21/2025] trospium (Sanctura) tablet 20 mg, 20 mg, Oral, qAM AC, Janet Rosemarie, DO [4] Family History Problem Relation Name Age of Onset Diabetes Father Ed Shue Hypertension Father Ed Shue Diabetes Son Hi Nelson Hypertension Son Hi Nelson [employer] Phone: [phone] Emergency department Note* Vandana Soliman RN - 03/20/2025 5:18 PM EDT Report to Rayna PIERSON [address] [id number] Emergency department Note* Vandana Soliman RN - 03/20/2025 5:18 PM EDT Report to Rayna KENNA [address] * Vandana Soliman RN - 03/20/2025 4:50 PM EDT Report to ambulance crew for transfer to [facility]. Chart to them. Pt taking cell phone. Daughter taking purse and clothing home with her. * Vandana Soliman RN - 03/20/2025 2:[address] Perry performing block for pain relief left hip. Pt tolerated well. * Vandana Soliman RN - 03/20/2025 1:38 PM EDT Pt able to void on fracture moyer. Urine sent to lab. * Jennifer Perry DO - 03/20/2025 11:09 AM EDTAssociated Order(s): [facility] SPECIFIC POCUS ORDER; Nerve Block EMERGENCY DEPARTMENT ENCOUNTER Pt Name: Hanna Nelson Birthdate 1940 Date of evaluation: 03/20/2025 ED Provider: Jennifer Perry DO CHIEF COMPLAINT Chief Complaint Patient presents with Fall Hip Pain Left hip pain HISTORY OF PRESENT ILLNESS (Location/Symptom, Timing/Onset, Context/Setting, Quality, Duration, Modifying Factors, Severity) Note limiting factors. HPI Hanna Nelson is a 84 y.o. female who presents to the emergency department after falling and injuring her left hip last night. Lives alone. Was unable to get up, unable to get to phone. Laid there all night until a home health nurse came to do a wound check this morning and found her on the ground. Denies any pain except for to her left hip. No associated numbness or weakness. Says that she tripped and fell. No syncope or presyncope. Did not hit her head. No loss of consciousness or amnesia for the event. No vomiting. No confusion. No chest pain, shortness of breath or abdominal pain. Is on Eliquis for atrial fibrillation. Nursing Notes were reviewed. REVIEW OF SYSTEMS All systems reviewed and negative except as noted above. PAST MEDICAL HISTORY Medical History[1] SURGICAL HISTORY Surgical History[2] CURRENT MEDICATIONS Previous Medications ALCOHOL SWABS (ALCOHOL PREP) 70 % PADS 1 Pad 3 times daily. APIXABAN (ELIQUIS) 5 MG TABLET Take 5 mg by mouth 2 times daily. ATORVASTATIN (LIPITOR) 20 MG TABLET Take 20 mg by mouth daily. BLOOD GLUCOSE MONITORING SUPPL (BLOOD GLUCOSE MONITOR SYSTEM) W/DEVICE KIT Check glucose 3x daily CONTINUOUS GLUCOSE SENSOR (FREESTYLE JAVIER 3 PLUS SENSOR) MISC 1 each every 15 days. GABAPENTIN (NEURONTIN) 300 MG CAPSULE Take 300 mg by mouth 2 times daily. GLUCOSE BLOOD TEST STRIP Use as instructed INSULIN DEGLUDEC-LIRAGLUTIDE (XULTOPHY) 100-3.6 UNIT-MG/ML PEN Inject 30 Units under the skin daily. INSULIN GLARGINE (LANTUS) 100 UNIT/ML INJECTION Inject 26 Units under the skin Nightly. LACTOBACILLUS 0.05-0.05 MG TABLET Take 4 tablets by mouth daily. LANCETS Check glucose x3 daily LEVOTHYROXINE (TIROSINT) 112 MCG CAPSULE Take by mouth every morning (before breakfast). METFORMIN (GLUCOPHAGE) 500 MG TABLET Take 1 tablet (500 mg) by mouth 2 times daily (with meals). METOPROLOL TARTRATE (LOPRESSOR) 25 MG TABLET Take 1 tablet (25 mg) by mouth 2 times daily. OXYBUTYNIN (DITROPAN) 5 MG TABLET Take 10 mg by mouth daily. SEMAGLUTIDE (OZEMPIC) 2 MG/3ML SOLUTION PEN-INJECTOR Inject 0.5 mg under the skin 1 (one) time per week. ALLERGIES Tape FAMILY HISTORY Family History[3] SOCIAL HISTORY Social History[4] PHYSICAL EXAM ED Triage Vitals [03/20/25 1121] Temp Heart Rate Resp BP 36.6 C (97.8 F) 61 16 135/71 SpO2 Temp Source Heart Rate Source Patient Position 98 % Temporal -- Lying BP Location FiO2 (%) Right arm -- General: Well-developed, well-nourished patient lying in bed who appears non-toxic. Head: Atraumatic, normocephalic. No signs of basilar skull fracture. Eyes: No ocular trauma. EOMI. No proptosis. ENT: No facial or dental trauma. Neck: No cervical midline tenderness. No stepoff, crepitus, ecchymosis or deformity. Meets NEXUS criteria. Back: No midline tendernes. No stepoff, crepitus, ecchymosis or deformity. Chest: Non-tender, no crepitus, ecchymosis or deformity. Heart: Tachycardic and irregularly irregular. Lungs: Clear to auscultation bilaterally. Normal respiratory pattern without conversational dyspneaor respiratory distress. Abdomen: Soft, non-tender, non-distended, no guarding or peritoneal signs. Neurologic: Awake and alert, normal speech and mental status. GCS 15. Pupils equal. Moves all extremities equally well. No clinical evidence of intoxication. No altered level of alertness. No focal deficits or lateralizing signs. Psychiatric: Mood and affect appropriate. Skin: Warm and dry, no lacerations. Musculoskeletal: Left hip is shortened and externally rotated, significant discomfort with attempted movement. Chronic deformity to the left ankle. There are some tenderness to the right lower leg with palpation of the tibia, no deformity, ecchymosis or swelling. Otherwise, extremities atraumatic x4. All long bones palpated, all joints put through passive range of motion without pain or crepitus. DIAGNOSTIC RESULTS/EMERGENCY DEPARTMENT COURSE and DIFFERENTIAL DIAGNOSIS/MDM: Vitals: Vitals: 03/20/25 1121 BP: 135/71 BP Location: Right arm Patient Position: Lying Pulse: 61 Resp: 16 Temp: 36.6 C (97.8 F) TempSrc: Temporal SpO2: 98% Weight: 90.7 kg (200 lb) Height: 1.797 m (5' 10.75") EKG: EKG was reviewed by myself. Physician EKG interpretation can be found in [facility]. LABS: Labs Reviewed CBC WITH AUTO DIFFERENTIAL - Abnormal Result Value Auto WBC 14.1 (*) RBC 3.41 (*) Hemoglobin 10.3 (*) Hematocrit 31.3 (*) MCV 91.8 MCH 30.2 MCHC 32.9 RDW 14.8 Platelets 279 MPV 10.9 nRBC 0.0 Neutrophils Relative 82.5 (*) Lymphocytes Relative 6.2 (*) Monocytes Relative 10.7 Eosinophils Relative 0.0 Basophils Relative 0.1 Immature Grans % 0.5 Neutrophils Absolute 11.7 (*) Lymphocytes Absolute 0.9 (*) Monocytes Absolute 1.5 (*) Eosinophils Absolute 0.0 Basophils Absolute 0.0 Immature Grans Absolute 0.1 (*) BASIC METABOLIC PANEL - Abnormal SODIUM 140 POTASSIUM 5.0 CHLORIDE 109 (*) CARBON DIOXIDE 16 (*) UREA NITROGEN 43 (*) CREATININE 1.70 (*) GLUCOSE 350 (*) CALCIUM 9.4 ANION GAP 15 (*) eGFR 29.3 (*) CK - Abnormal CK 253 (*) COMPLETE URINALYSIS WITH REFLEX TO CULTURE - Abnormal Color, Urine Yellow Clarity, Urine Clear pH, Urine 5.0 Leukocytes, Urine Negative Nitrite, Urine Negative Protein, Urine 20 (*) Glucose, Urine >1,000 (*) Bilirubin, Urine Negative Ketones, Urine Trace (*) Urobilinogen, Urine 2 (*) Blood, Urine Negative Volume, Urine 8-12 mL RBC, Urine 0-2 WBC, Urine 3-5 Squamous Epithelial, Urine 6-10 (*) Non-Squamous Epithalial Cells, Urine 0-2 (*) Bacteria, Urine Few (*) SPECIFIC GRAVITY OF URINE (NUMERIC) 1.019 Narrative: A specimen with <=10 WBC is not consistent with inflammation. This specimen will not reflex to aurine culture. All other labs were within normal range or not returned as of this dictation. Medical Decision Making Problems Addressed: Closed fracture of left hip, initial encounter (HCC): complicated acute illness or injury Amount and/or Complexity of Data Reviewed Labs: ordered. Radiology: ordered. ECG/medicine tests: ordered. Risk Prescription drug management. Decision regarding hospitalization. History obtained from patient and paramedics who reported to nursing staff. Diagnostic interpretations performed by me in the ED include hip x-ray which shows subtrochanteric and intra trochanteric hip fracture on the left. Social determinants of health affecting the patient's diagnosis and disposition include her living situation (lives alone). Management discussed with the hospitalist team at [facility] as well as with Dr. Sullivan on-call for orthopedics, in order to facilitate transfer. Medications administered in the ED include those listed below. Clinical impression: Left subtrochanteric/intertrochanteric hip fracture status post fall Patient was hospitalized for further evaluation and management. Interpretation per the Radiologist below, if available at the time of this note: XR hip left 2 or 3 views Final Result FINDINGS/IMPRESSION: There is an acute moderately comminuted subtrochanteric fracture of the left proximal femur with possible slight intertrochanteric component, with shortening of the distal fracture fragment. The left femoral acetabular joint is maintained. The distal left femur is partially visualized and grossly unremarkable. Prior right femoral fixation partially visualized. No radiopaque foreign body. Report Dictated on Electronically Signed By: Josue Fields MD Electronically Signed Date/Time: 03/20/2025 1:30 PM EDT XR chest 1 view Final Result No acute abnormality. Report Dictated on Electronically Signed By: Josue Fields MD Electronically Signed Date/Time: 03/20/2025 1:23 PM EDT XR tibia fibula 2 views right Final Result FINDINGS/IMPRESSION: There is no evidence of fracture or dislocation of the right tibia and fibula. There is partially visualized intramedullary malick within the right distal femur. There is moderate degenerative disease of the right knee with joint space narrowing of the medial compartment, osteophytic spurring. There is no radiopaque foreign body. Report Dictated on Electronically Signed By: Josue Fields MD Electronically Signed Date/Time: 03/20/2025 1:33 PM EDT [facility] SPECIFIC POCUS ORDER (Results Pending) Medications ketamine 22.5 mg in sodium chloride 0.9 % 50 mL ivpb (0 mg IntraVENous Stopped 03/20/25 1226) lactated ringers bolus 1,000 mL (1,000 mL IntraVENous New Bag 03/20/25 1205) lidocaine (Xylocaine) 1 % injection 10 mL (10 mL Infiltration Given by Other 03/20/25 1436) bupivacaine PF (Marcaine) 0.5 % injection 10 mL (10 mL Other Given by Other 03/20/25 1435) PROCEDURES: Unless otherwise noted below, none [facility] SPECIFIC POCUS ORDER Performed by: Jennifer Perry DO Authorized by: Jennifer Perry DO Nerve Block Performed by: Jennifer Perry DO Authorized by: Jennifer Perry DO [place] protocol: Patient identity confirmed: Verbally with patient Indications: Indications: Pain relief Location: Body area: Lower extremity Lower extremity nerve: Fascia iliaca Laterality: Left Pre-procedure details: Skin preparation: Povidone-iodine Skin anesthesia: Skin anesthesia method: Local infiltration Procedure details: Block needle gauge: 22 G Guidance: ultrasound Anesthetic injected: Bupivacaine 0.5% w/o epi and lidocaine 1% w/o epi (50/50, 20 cc total) Post-procedure details: Procedure completion: Tolerated well, no immediate complications FINAL IMPRESSION 1. Closed fracture of left hip, initial encounter ([facility]) PATIENT REFERRED TO: No follow-up provider specified. DISCHARGE MEDICATIONS: New Prescriptions No medications on file (Comment: Please note this report has been produced using speech recognition software and may contain errors related to that system including errors in grammar, punctuation, and spelling, as well as words and phrases that may be inappropriate. If there are any questions or concerns please feel freeto contact the dictating provider for clarification.) Jennifer Perry DO (electronically signed) Emergency Medicine Provider [1] Past Medical History: Diagnosis Date Arthritis Atrial fibrillation (HCC) Diabetes mellitus (HCC) Hyperlipidemia Hypertension Hypothyroidism Neuropathy [2] Past Surgical History: Procedure Laterality Date BACK SURGERY CHOLECYSTECTOMY [3] Family History Problem Relation Name Age of Onset Diabetes Father Ed Shue Hypertension Father Ed Shue Diabetes Son Hi Nelson Hypertension Son Hi Nelson [4] Social History Socioeconomic History Marital status: Tobacco Use Smoking status: Former Current packs/day: 0.00 Types: Cigarettes Quit date: 1965 Years since quittin.6 Smokeless tobacco: Never Vaping Use Vaping status: Never Used Substance and Sexual Activity Alcohol use: Yes Comment: drinks bee occasionally Drug use: Never Social Drivers of Health Food Insecurity: No Food Insecurity (12/03/2024) Hunger Vital Sign Worried About Running Out of Food in the Last Year: Never true Ran Out of Food in the Last Year: Never true Transportation Needs: No Transportation Needs (12/03/2024) PRAPARE - Transportation Lack of Transportation (Medical): No Lack of Transportation (Non-Medical): No Intimate Partner Violence: Not At Risk (03/13/2025) Humiliation, Afraid, Rape, and Kick questionnaire Fear of Current or Ex-Partner: No Emotionally Abused: No Physically Abused: No Sexually Abused: No Housing Stability: Low Risk (12/03/2024) Housing Stability Vital Sign Unable to Pay for Housing in the Last Year: No Number of Times Moved in the Last Year: 1 Homeless in the Last Year: No Jennifer Perry DO 03/20/25 1447 * Vandana Soliman RN - 03/20/2025 11:09 AM EDT Pt to ER by [facility] from [facility]. Pt fell sometime last night and was unable to get up off the floor. Home health came today and found pt on floor. Pt complains of left hip pain. States she thinks she tripped on something which caused her to fall. Denies loss of consciousness, head neck or back pain. Left leg externally rotated and painful when moving. Denies other injuries. Pt alert and oriented x 4. Skin warm and dry. Bruising to left elbow area. Pt undressed with assist of 2. Placed in hospital gown. Side rails up x 2. Call light in reach. Daughter @ bedside documented in this [facility]08-09-2025 Emergency department Note* Vandana Soliman RN - 03/20/2025 4:50 PM EDT Report to ambulance crew for transfer to [facility]. Chart to them. Pt taking cell phone. Daughter taking purse and clothing home with her. [id number] Emergency department Note* Vandana Soliman RN - 03/20/2025 2:[address] Perry performing block for pain relief left hip. Pt tolerated well. [place] [id number] Emergency department Note* Vandana Soliman RN - 03/20/2025 1:38 PM EDT Pt able to void on fracture moyer. Urine sent to lab. [place] [id number] Emergency department Triage note* Vandana Soliman RN - 03/20/2025 11:09 AM EDT Pt to ER by [facility] from [facility]. Pt fell sometime last night and was unable to get up off the floor. Home health came today and found pt on floor. Pt complains of left hip pain. States she thinks she tripped on something which caused her to fall. Denies loss of consciousness, head neck or back pain. Left leg externally rotated and painful when moving. Denies other injuries. Pt alert and oriented x 4. Skin warm and dry. Bruising to left elbow area. Pt undressed with assist of 2. Placed in hospital gown. Side rails up x 2. Call light in reach. Daughter @ bedside [id number] Physician Emergency department Note* Jennifer Perry DO - 03/20/2025 11:09 AM EDTAssociated Order(s): [facility] SPECIFIC POCUS ORDER; Nerve Block EMERGENCY DEPARTMENT ENCOUNTER Pt Name: Hanna Nelson Birthdate 1940 Date of evaluation: 03/20/2025 ED Provider: Jennifer Perry DO CHIEF COMPLAINT Chief Complaint Patient presents with Fall Hip Pain Left hip pain HISTORY OF PRESENT ILLNESS (Location/Symptom, Timing/Onset, Context/Setting, Quality, Duration, Modifying Factors, Severity) Note limiting factors. HPI Hanna Nelson is a 84 y.o. female who presents to the emergency department after falling and injuring her left hip last night. Lives alone. Was unable to get up, unable to get to phone. Laid there all night until a home health nurse came to do a wound check this morning and found her on the ground. Denies any pain except for to her left hip. No associated numbness or weakness. Says that she tripped and fell. No syncope or presyncope. Did not hit her head. No loss of consciousness or amnesia for the event. No vomiting. No confusion. No chest pain, shortness of breath or abdominal pain. Is on Eliquis for atrial fibrillation. Nursing Notes were reviewed. REVIEW OF SYSTEMS All systems reviewed and negative except as noted above. PAST MEDICAL HISTORY Medical History[1] SURGICAL HISTORY Surgical History[2] CURRENT MEDICATIONS Previous Medications ALCOHOL SWABS (ALCOHOL PREP) 70 % PADS 1 Pad 3 times daily. APIXABAN (ELIQUIS) 5 MG TABLET Take 5 mg by mouth 2 times daily. ATORVASTATIN (LIPITOR) 20 MG TABLET Take 20 mg by mouth daily. BLOOD GLUCOSE MONITORING SUPPL (BLOOD GLUCOSE MONITOR SYSTEM) W/DEVICE KIT Check glucose 3x daily CONTINUOUS GLUCOSE SENSOR (Excel EnergySTYLE JAVIER 3 PLUS SENSOR) MISC 1 each every 15 days. GABAPENTIN (NEURONTIN) 300 MG CAPSULE Take 300 mg by mouth 2 times daily. GLUCOSE BLOOD TEST STRIP Use as instructed INSULIN DEGLUDEC-LIRAGLUTIDE (XULTOPHY) 100-3.6 UNIT-MG/ML PEN Inject 30 Units under the skin daily. INSULIN GLARGINE (LANTUS) 100 UNIT/ML INJECTION Inject 26 Units under the skin Nightly. LACTOBACILLUS 0.05-0.05 MG TABLET Take 4 tablets by mouth daily. LANCETS Check glucose x3 daily LEVOTHYROXINE (TIROSINT) 112 MCG CAPSULE Take by mouth every morning (before breakfast). METFORMIN (GLUCOPHAGE) 500 MG TABLET Take 1 tablet (500 mg) by mouth 2 times daily (with meals). METOPROLOL TARTRATE (LOPRESSOR) 25 MG TABLET Take 1 tablet (25 mg) by mouth 2 times daily. OXYBUTYNIN (DITROPAN) 5 MG TABLET Take 10 mg by mouth daily. SEMAGLUTIDE (OZEMPIC) 2 MG/3ML SOLUTION PEN-INJECTOR Inject 0.5 mg under the skin 1 (one) time per week. ALLERGIES Tape FAMILY HISTORY Family History[3] SOCIAL HISTORY Social History[4] PHYSICAL EXAM ED Triage Vitals [03/20/25 1121] Temp Heart Rate Resp BP 36.6 C (97.8 F) 61 16 135/71 SpO2 Temp Source Heart Rate Source Patient Position 98 % Temporal -- Lying BP Location FiO2 (%) Right arm -- General: Well-developed, well-nourished patient lying in bed who appears non-toxic. Head: Atraumatic, normocephalic. No signs of basilar skull fracture. Eyes: No ocular trauma. EOMI. No proptosis. ENT: No facial or dental trauma. Neck: No cervical midline tenderness. No stepoff, crepitus, ecchymosis or deformity. Meets NEXUS criteria. Back: No midline tendernes. No stepoff, crepitus, ecchymosis or deformity. Chest: Non-tender, no crepitus, ecchymosis or deformity. Heart: Tachycardic and irregularly irregular. Lungs: Clear to auscultation bilaterally. Normal respiratory pattern without conversational dyspneaor respiratory distress. Abdomen: Soft, non-tender, non-distended, no guarding or peritoneal signs. Neurologic: Awake and alert, normal speech and mental status. GCS 15. Pupils equal. Moves all extremities equally well. No clinical evidence of intoxication. No altered level of alertness. No focal deficits or lateralizing signs. Psychiatric: Mood and affect appropriate. Skin: Warm and dry, no lacerations. Musculoskeletal: Left hip is shortened and externally rotated, significant discomfort with attempted movement. Chronic deformity to the left ankle. There are some tenderness to the right lower leg with palpation of the tibia, no deformity, ecchymosis or swelling. Otherwise, extremities atraumatic x4. All long bones palpated, all joints put through passive range of motion without pain or crepitus. DIAGNOSTIC RESULTS/EMERGENCY DEPARTMENT COURSE and DIFFERENTIAL DIAGNOSIS/MDM: Vitals: Vitals: 03/20/25 1121 BP: 135/71 BP Location: Right arm Patient Position: Lying Pulse: 61 Resp: 16 Temp: 36.6 C (97.8 F) TempSrc: Temporal SpO2: 98% Weight: 90.7 kg (200 lb) Height: 1.797 m (5' 10.75") EKG: EKG was reviewed by myself. Physician EKG interpretation can be found in [facility]. LABS: Labs Reviewed CBC WITH AUTO DIFFERENTIAL - Abnormal Result Value Auto WBC 14.1 (*) RBC 3.41 (*) Hemoglobin 10.3 (*) Hematocrit 31.3 (*) MCV 91.8 MCH 30.2 MCHC 32.9 RDW 14.8 Platelets 279 MPV 10.9 nRBC 0.0 Neutrophils Relative 82.5 (*) Lymphocytes Relative 6.2 (*) Monocytes Relative 10.7 Eosinophils Relative 0.0 Basophils Relative 0.1 Immature Grans % 0.5 Neutrophils Absolute 11.7 (*) Lymphocytes Absolute 0.9 (*) Monocytes Absolute 1.5 (*) Eosinophils Absolute 0.0 Basophils Absolute 0.0 Immature Grans Absolute 0.1 (*) BASIC METABOLIC PANEL - Abnormal SODIUM 140 POTASSIUM 5.0 CHLORIDE 109 (*) CARBON DIOXIDE 16 (*) UREA NITROGEN 43 (*) CREATININE 1.70 (*) GLUCOSE 350 (*) CALCIUM 9.4 ANION GAP 15 (*) eGFR 29.3 (*) CK - Abnormal CK 253 (*) COMPLETE URINALYSIS WITH REFLEX TO CULTURE - Abnormal Color, Urine Yellow Clarity, Urine Clear pH, Urine 5.0 Leukocytes, Urine Negative Nitrite, Urine Negative Protein, Urine 20 (*) Glucose, Urine >1,000 (*) Bilirubin, Urine Negative Ketones, Urine Trace (*) Urobilinogen, Urine 2 (*) Blood, Urine Negative Volume, Urine 8-12 mL RBC, Urine 0-2 WBC, Urine 3-5 Squamous Epithelial, Urine 6-10 (*) Non-Squamous Epithalial Cells, Urine 0-2 (*) Bacteria, Urine Few (*) SPECIFIC GRAVITY OF URINE (NUMERIC) 1.019 Narrative: A specimen with <=10 WBC is not consistent with inflammation. This specimen will not reflex to aurine culture. All other labs were within normal range or not returned as of this dictation. Medical Decision Making Problems Addressed: Closed fracture of left hip, initial encounter (HCC): complicated acute illness or injury Amount and/or Complexity of Data Reviewed Labs: ordered. Radiology: ordered. ECG/medicine tests: ordered. Risk Prescription drug management. Decision regarding hospitalization. History obtained from patient and paramedics who reported to nursing staff. Diagnostic interpretations performed by me in the ED include hip x-ray which shows subtrochanteric and intra trochanteric hip fracture on the left. Social determinants of health affecting the patient's diagnosis and disposition include her living situation (lives alone). Management discussed with the hospitalist team at [facility] as well as with Dr. Sullivan on-call for orthopedics, in order to facilitate transfer. Medications administered in the ED include those listed below. Clinical impression: Left subtrochanteric/intertrochanteric hip fracture status post fall Patient was hospitalized for further evaluation and management. Interpretation per the Radiologist below, if available at the time of this note: XR hip left 2 or 3 views Final Result FINDINGS/IMPRESSION: There is an acute moderately comminuted subtrochanteric fracture of the left proximal femur with possible slight intertrochanteric component, with shortening of the distal fracture fragment. The left femoral acetabular joint is maintained. The distal left femur is partially visualized and grossly unremarkable. Prior right femoral fixation partially visualized. No radiopaque foreign body. Report Dictated on Electronically Signed By: Josue Fields MD Electronically Signed Date/Time: 03/20/2025 1:30 PM EDT XR chest 1 view Final Result No acute abnormality. Report Dictated on Electronically Signed By: Josue Fields MD Electronically Signed Date/Time: 03/20/2025 1:23 PM EDT XR tibia fibula 2 views right Final Result FINDINGS/IMPRESSION: There is no evidence of fracture or dislocation of the right tibia and fibula. There is partially visualized intramedullary malick within the right distal femur. There is moderate degenerative disease of the right knee with joint space narrowing of the medial compartment, osteophytic spurring. There is no radiopaque foreign body. Report Dictated on Electronically Signed By: Josue Fields MD Electronically Signed Date/Time: 03/20/2025 1:33 PM EDT [facility] SPECIFIC POCUS ORDER (Results Pending) Medications ketamine 22.5 mg in sodium chloride 0.9 % 50 mL ivpb (0 mg IntraVENous Stopped 03/20/25 1226) lactated ringers bolus 1,000 mL (1,000 mL IntraVENous New Bag 03/20/25 1205) lidocaine (Xylocaine) 1 % injection 10 mL (10 mL Infiltration Given by Other 03/20/25 1436) bupivacaine PF (Marcaine) 0.5 % injection 10 mL (10 mL Other Given by Other 03/20/25 1435) PROCEDURES: Unless otherwise noted below, none [facility] SPECIFIC POCUS ORDER Performed by: Jennifer Perry DO Authorized by: Jennifer Perry DO Nerve Block Performed by: Jennifer Perry DO Authorized by: Jennifer Perry DO [place] protocol: Patient identity confirmed: Verbally with patient Indications: Indications: Pain relief Location: Body area: Lower extremity Lower extremity nerve: Fascia iliaca Laterality: Left Pre-procedure details: Skin preparation: Povidone-iodine Skin anesthesia: Skin anesthesia method: Local infiltration Procedure details: Block needle gauge: 22 G Guidance: ultrasound Anesthetic injected: Bupivacaine 0.5% w/o epi and lidocaine 1% w/o epi (50/50, 20 cc total) Post-procedure details: Procedure completion: Tolerated well, no immediate complications FINAL IMPRESSION 1. Closed fracture of left hip, initial encounter ([facility]) PATIENT REFERRED TO: No follow-up provider specified. DISCHARGE MEDICATIONS: New Prescriptions No medications on file (Comment: Please note this report has been produced using speech recognition software and may contain errors related to that system including errors in grammar, punctuation, and spelling, as well as words and phrases that may be inappropriate. If there are any questions or concerns please feel freeto contact the dictating provider for clarification.) Jennifer Perry DO (electronically signed) Emergency Medicine Provider [1] Past Medical History: Diagnosis Date Arthritis Atrial fibrillation (HCC) Diabetes mellitus (HCC) Hyperlipidemia Hypertension Hypothyroidism Neuropathy [2] Past Surgical History: Procedure Laterality Date BACK SURGERY CHOLECYSTECTOMY [3] Family History Problem Relation Name Age of Onset Diabetes Father Ed Shue Hypertension Father Ed Shue Diabetes Son Hi Nelson Hypertension Son Hi Nelson [4] Social History Socioeconomic History Marital status: Tobacco Use Smoking status: Former Current packs/day: 0.00 Types: Cigarettes Quit date: 1964 Years since quittin.6 Smokeless tobacco: Never Vaping Use Vaping status: Never Used Substance and Sexual Activity Alcohol use: Yes Comment: drinks bee occasionally Drug use: Never Social Drivers of Health Food Insecurity: No Food Insecurity (12/03/2024) Hunger Vital Sign Worried About Running Out of Food in the Last Year: Never true Ran Out of Food in the Last Year: Never true Transportation Needs: No Transportation Needs (12/03/2024) PRAPARE - Transportation Lack of Transportation (Medical): No Lack of Transportation (Non-Medical): No Intimate Partner Violence: Not At Risk (03/13/2025) Humiliation, Afraid, Rape, and Kick questionnaire Fear of Current or Ex-Partner: No Emotionally Abused: No Physically Abused: No Sexually Abused: No Housing Stability: Low Risk (12/03/2024) Housing Stability Vital Sign Unable to Pay for Housing in the Last Year: No Number of Times Moved in the Last Year: 1 Homeless in the Last Year: No Jennifer Perry DO 03/20/25 1447 [id number] Nurse Note* Chikis Benitez RN - 03/15/2025 3:26 PM EDT Ok for discharge, HL and tele have been discontinued. Reviewed home going instructions. States she understands and has no questions. Has belongings. Awaiting ride home. [id number] Nurse Note* Chikis Benitez RN - 03/15/2025 3:26 PM EDT Ok for discharge, HL and tele have been discontinued. Reviewed home going instructions. States she understands and has no questions. Has belongings. Awaiting ride home. documented in this [facility]08-04-2025 Miscellaneous Notes* Treatment Plan - Terir Ospina APRN - [place]REE - 03/15/2025 2:01 PM EDT Cardiology chart check: Telemetry reveals atrial fib/flutter- rates in the 80s. Continue metoprolol tartrated 25mg twice daily for rate control and apixaban 5mg twice daily for cardioembolic protection. Echo shows normal LVEF, mild- mod MR and TR, mild . No further orders at this time. Cardiology is signing off. Notes indicate that she is wanting follow up in [place] office. 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 It appears she has one with Dixie Mclean in [place] office on 03/30 which she should keep. documented in this [facility]08-04-2025 Plan of care note* Treatment Plan - ALEJANDRINA Conrad CNP - 03/15/2025 2:01 PM EDT Cardiology chart check: Telemetry reveals atrial fib/flutter- rates in the 80s. Continue metoprolol tartrated 25mg twice daily for rate control and apixaban 5mg twice daily for cardioembolic protection. Echo shows normal LVEF, mild- mod MR and TR, mild . No further orders at this time. Cardiology is signing off. Notes indicate that she is wanting follow up in [place] office. 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 It appears she has one with Dixie Mclean in [place] office on 03/30 which she should keep. [facility] [employer] Phone: [phone]) 371-765708-04-2025 [facility]08-04-2025 Hospital course Narrative* Deny Barton MD - 03/15/2025 1:34 PM EDT Discharge Summary Hanna Nelson : 1940 ADMIT DATE: 03/12/2025 DISCHARGE DATE: 03/15/2025 PRIMARY CARE PHYSICIAN: Dorothy Medrano VISIT STATUS: Admission CODE STATUS: Full Code DISCHARGE DIAGNOSES: Acute problems-- Hyperkalemia admission, resolved Atrial fibrillation with rapid ventricular response Acute kidney injury resolved on chronic kidney disease stage III NAGMA Hypoglycemia, resolved Chronic issue-- Right plantar foot DFU, POA DM Hypertension Hyperlipidemia CKD stage III Hypothyroidism Peripheral neuropathy History of atrial fibrillation on anticoagulation HOSPITAL COURSE: 84-year-old female past medical history of atrial fibrillation anticoagulation, DM, hypertension, hyperlipidemia, hypothyroidism, chronic kidney disease stage III, peripheral neuropathy. Patient was admitted in January 2025--following treatment of her sepsis secondary to diabetic foot wound, acute kidney injury on chronic kidney disease stage III, atrial fibrillation with RVR, DM with hyperglycemia. Admitted following abnormal lab with hyperkalemia. Potassium on admission 5.4, CO2 of 19, creatinine 1.46, troponin negative, EKG showed atrial fibrillation with rapid ventricular response, chest x-ray negative for acute process. Patient was treated for hyperkalemia, potassium at the time of discharge was 4.4. Patient also had atrial fibrillation with rapid ventricular response, seen by cardiology team, started on metoprolol 25 mg p.o. twice daily following which heart rate was controlled. She was continued with anticoagulation with Eliquis. Echo done during this admission showed EF of 57% , mild to moderate mitral regurgitation, tricuspid regurgitation, mild aortic regurgitation, RVSP 35..She also had acute kidney injury on chronic kidney disease stage III, NAGMA resolved with IV fluid,creatinine at the above discharge was 1.1. She also had hypoglycemia, insulin dose was adjusted. Patient was advised to monitor blood sugar at home, will be continued with Ozempic, metformin, Lantus 26 units subcu daily. She needs to have repeat BMP panel to be rechecked in 1 week. Seen by wound care team with diagnosis of right plantar foot DFU, recommended outpatient follow-up On the day of discharge denies new symptom, afebrile, vital signs stable On examination-- HEENT: Eyes: Pallor noted Cardiovascular: S1S2 heard, no murmur Respiratory: Clear to auscultation bilaterally anteriorly Abdomen: Soft, non-tender, non-distended, no mass palpable with normal bowel sounds. Neurology- Awake alert, answering questions No focal neurology noted Extremity-trace peripheral edema both lower extremities Right plantar foot wound, POA CONSULTANTS: Wound care, cardiology RECOMMENDED NEXT STEPS: Outpatient follow-up with wound care team CBC, BMP panel in 1 week DISCHARGE MEDICATIONS: Medication List START taking these medications metoprolol tartrate 25 MG tablet Commonly known as: Lopressor Take 1 tablet (25 mg) by mouth 2 times daily. CHANGE how you take these medications insulin glargine 100 UNIT/ML injection Commonly known as: Lantus Inject 26 Units under the skin Nightly. What changed: how much to take CONTINUE taking these medications Alcohol Prep 70 % pads 1 Pad 3 times daily. atorvastatin 20 MG tablet Commonly known as: Lipitor Blood Glucose Monitor System w/Device kit Check glucose 3x daily Eliquis 5 MG tablet Generic drug: apixaban FreeStyle Javier 3 Plus Sensor misc 1 each every 15 days. gabapentin 300 MG capsule Commonly known as: Neurontin glucose blood test strip Use as instructed Lactobacillus 0.05-0.05 MG tablet Take 4 tablets by mouth daily. Lancets Check glucose x3 daily levothyroxine 112 MCG capsule Commonly known as: Tirosint metFORMIN 500 MG tablet Commonly known as: Glucophage Take 1 tablet (500 mg) by mouth 2 times daily (with meals). oxybutynin 5 MG tablet Commonly known as: Ditropan semaglutide 2 MG/3ML solution pen-injector Commonly known as: Ozempic Inject 0.5 mg under the skin 1 (one) time per week. STOP taking these medications atenolol 25 MG tablet Commonly known as: Tenormin Insulin Lispro 100 UNIT/ML solution injection Commonly known as: Humalog sulfamethoxazole-trimethoprim 400-80 MG tablet Commonly known as: Bactrim Where to Get Your Medications You can get these medications from any pharmacy Bring a paper prescription for each of these medications metoprolol tartrate 25 MG tablet Information about where to get these medications is not yet available Ask your nurse or doctor about these medications insulin glargine 100 UNIT/ML injection DIET: Adult diet Regular; 5 carb choices (75 gm/meal) ACTIVITY: No restriction. COMPLEXITY OF FOLLOW UP: [] Moderate Complexity: follow up within 7-14 calendar days (87778) [] Severe Complexity: follow up within 7 calendar days (19471) FOLLOW UP TESTING, PENDING RESULTS OR REFERRALS AT TRANSITIONAL CARE VISIT: [] Yes [] No PENDING STUDIES: DISPOSITION: Home FACILITY/HOME CARE AGENCY NAME: Follow up with [address] [facility] [address] Schedule an appointment as soon as possible for a visit in 1 week(s) Jimmie Pichardo MD [address] [facility] [address] Follow up in 1 month(s) [facility] [address] [facility] [address] INSTRUCTIONS TO MA/SW: Please call patient on day after discharge (must document patient contacted within 2 business days of discharge). FOLLOW UP QUESTIONS FOR MA/SW: 1. Did you get medications filled and taking them as instructed from discharge? 2. Are you following your discharge instructions from your hospital stay? 3. Please confirm patient is scheduled for a follow up appointment within the above time frame. DISCHARGE TIME: > 30 minutes SIGNED: Deny Barton MD 03/15/2025, 1:34 PM documented in this [facility]08-04-2025 Consult note* Amirah Reese, ALEJANDRINA - NUCLE[employer] PLANT INSTRUMENT TECHNICIAN - 03/15/2025 10:10 AM EDTAssociated Order(s): INPATIENT CONSULT TO WOUND CARE PROVIDERS Images from the original note were not included. [facility] Wound Care CONSULT Note Hanna Nelson AGE: 84 y.o. GENDER: female : 1940 Subjective: HISTORY of PRESENT ILLNESS HPI Hanna Nelson is a 84 y.o. female who presents for a wound consult. HPI: Ms. Nelson is a 84 y.o. female with past medical history below who presents with concern for abnormal lab values on routine lab work, reported potassium >6. Patient history includes atrial fibrillation, DM2, HLD, HTN and hypothyroidism. 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 Wound Care consulted for right plantar foot diabetic ulcer. PAST MEDICAL HISTORY Medical History[1] PAST SURGICAL HISTORY Surgical History[2] FAMILY HISTORY Family History[3] SOCIAL HISTORY Social History[4] ALLERGIES Allergies[5] MEDICATIONS Medications Ordered Prior to Encounter[6] REVIEW OF SYSTEMS Pertinent items are noted in HPI. Objective: BP 158/89 (BP Location: Left arm, Patient Position: Sitting) Pulse 91 Temp (!) 35.6 C (96.1 F) (Temporal) Resp 15 Ht 5' 10" (1.778 m) Wt 200 lb (90.7 kg) SpO2 99% BMI 28.70 kg/m PHYSICAL EXAM General appearance: in no apparent distress, alert, and oriented times 3 Skin: warm and dry Pulmonary: Normal effort, no respiratory distress, no cyanosis Right plantar foot: 1.0cmx1.0cmx0.8cm with undermining 12 o'clock to 12 o'clock measuring 0.8cm. [place] tissue present. [place]osang with purulent drainage. Periwound with callous. 03/15/25 LABS CBC: Lab Results Component Value Date WBC 7.8 03/14/2025 HGB 11.0 (L) 03/14/2025 HCT 34.7 (L) 03/14/2025 MCV 94.3 03/14/2025 PLT 298 03/14/2025 BMP: Lab Results Component Value Date NA 139 03/15/2025 K 4.4 03/15/2025 CL 111 (H) 03/15/2025 CO2 18 (L) 03/15/2025 BUN 35 (H) 03/15/2025 CREATININE 1.10 03/15/2025 PT/INR: No results found for: "PROTIME", "INR" Prealbumin: No results found for: "PREALBUMIN" Albumin:No components found for: "LABALBU" Sed Rate:No results found for: "SEDRATE" Micro: No components found for: "BC" Assessment/Plan: Nursing staff to perform dressing change: Right plantar foot: DFU (Fat) - Clean with NS, pack with Mesalt then cover with foam dressing daily and PRN - Limit pressure to right foot. Nutritional support Wound Care to follow Recommend to follow up at [facility] care center after hospital discharge. Any questions or concerns please secure chat "ACH wound/ostomy". Thank you for the consult! I personally obtained the larsen and critical portions of the history and physical exam. I reviewed the labs, imaging studies, and electronic medical record. I reviewed the chart documentation and discussed the patient with treatment team members. I have edited the note to reflect my clinical findingsand my assessment and plan. Please note, the time of this note does not reflect the time I saw thispatient today, but the time of this documentaton. Portions of this note including HPI, ROS, impression/plan, and examination may have been copied forward from admission to today as to provide important historical information essential in contributing to medical decision making. Documentation has been reviewed and edited as necessary to support clinical decision making for today's visit and to reflect my own independent evaluation of this patient. Decision making for today's visit and to reflectmy own independent evaluation of this patient. [1] Past Medical History: Diagnosis Date Arthritis Atrial fibrillation (HCC) Diabetes mellitus (HCC) Hyperlipidemia Hypertension Hypothyroidism Neuropathy [2] Past Surgical History: Procedure Laterality Date BACK SURGERY CHOLECYSTECTOMY [3] Family History Problem Relation Name Age of Onset Diabetes Father Ed Shue Hypertension Father Ed Shue Diabetes Son Hi Nelson Hypertension Son Hi Nelson [4] Social History Tobacco Use Smoking status: Former Current packs/day: 0.00 Types: Cigarettes Quit date: 1965 Years since quittin.6 Smokeless tobacco: Never Vaping Use Vaping status: Never Used Substance Use Topics Alcohol use: Yes Comment: drinks bee occasionally Drug use: Never [5] Allergies Allergen Reactions Tape Rash [6] No current facility-administered medications on file prior to encounter. Current Outpatient Medications on File Prior to Encounter Medication Sig Dispense Refill Alcohol Swabs (Alcohol Prep) 70 % pads 1 Pad 3 times daily. 200 each 2 apixaban (Eliquis) 5 MG tablet Take 5 mg by mouth 2 times daily. atenolol (Tenormin) 25 MG tablet Take 1 tablet (25 mg) by mouth 2 times daily. (Patient not taking:Reported on 03/09/2025) 60 tablet 0 atorvastatin (Lipitor) 20 MG tablet Take 20 mg by mouth daily. Blood Glucose Monitoring Suppl (Blood Glucose Monitor System) w/Device kit Check glucose 3x daily 1kit 0 Continuous Glucose Sensor (FreeStyle Javier 3 Plus Sensor) misc 1 each every 15 days. 2 each 11 gabapentin (Neurontin) 300 MG capsule Take 300 mg by mouth 2 times daily. glucose blood test strip Use as instructed 100 each 0 Insulin Lispro (Humalog) 100 UNIT/ML solution injection Inject 8 Units under the skin 3 times daily(with meals). (Patient not taking: Reported on 03/15/2025) Lactobacillus 0.05-0.05 MG tablet Take 4 tablets by mouth daily. Lancets Check glucose x3 daily 100 each 3 levothyroxine (Tirosint) 112 MCG capsule Take by mouth every morning (before breakfast). metFORMIN (Glucophage) 500 MG tablet Take 1 tablet (500 mg) by mouth 2 times daily (with meals). 60tablet 6 oxybutynin (Ditropan) 5 MG tablet Take 10 mg by mouth daily. semaglutide (Ozempic) 2 MG/3ML solution pen-injector Inject 0.5 mg under the skin 1 (one) time per week. 3 mL 11 sulfamethoxazole-trimethoprim (Bactrim) 400-80 MG tablet Take 1 tablet by mouth 2 times daily. [DISCONTINUED] insulin glargine (Lantus) 100 UNIT/ML injection Inject 32 Units under the skin Nightly. 10 mL 12 Cosigned by Hi Mckeon DO at 03/15/2025 4:41 PM EDT [id number] Consult note* ALEJANDRINA Pan CNP - 03/15/2025 10:10 AM EDTAssociated Order(s): INPATIENT CONSULT TO WOUND CARE PROVIDERS Images from the original note were not included. [facility] Wound Care CONSULT Note Hanna Nelson AGE: 84 y.o. GENDER: female : 1940 Subjective: HISTORY of PRESENT ILLNESS HPI Hanna Nelson is a 84 y.o. female who presents for a wound consult. HPI: Ms. Nelson is a 84 y.o. female with past medical history below who presents with concern for abnormal lab values on routine lab work, reported potassium >6. Patient history includes atrial fibrillation, DM2, HLD, HTN and hypothyroidism. 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 Wound Care consulted for right plantar foot diabetic ulcer. PAST MEDICAL HISTORY Medical History[1] PAST SURGICAL HISTORY Surgical History[2] FAMILY HISTORY Family History[3] SOCIAL HISTORY Social History[4] ALLERGIES Allergies[5] MEDICATIONS Medications Ordered Prior to Encounter[6] REVIEW OF SYSTEMS Pertinent items are noted in HPI. Objective: BP 158/89 (BP Location: Left arm, Patient Position: Sitting) Pulse 91 Temp (!) 35.6 C (96.1 F) (Temporal) Resp 15 Ht 5' 10" (1.778 m) Wt 200 lb (90.7 kg) SpO2 99% BMI 28.70 kg/m PHYSICAL EXAM General appearance: in no apparent distress, alert, and oriented times 3 Skin: warm and dry Pulmonary: Normal effort, no respiratory distress, no cyanosis Right plantar foot: 1.0cmx1.0cmx0.8cm with undermining 12 o'clock to 12 o'clock measuring 0.8cm. [place] tissue present. [place] with purulent drainage. Periwound with callous. 03/15/25 LABS CBC: Lab Results Component Value Date WBC 7.8 03/14/2025 HGB 11.0 (L) 03/14/2025 HCT 34.7 (L) 03/14/2025 MCV 94.3 03/14/2025 PLT 298 03/14/2025 BMP: Lab Results Component Value Date NA 139 03/15/2025 K 4.4 03/15/2025 CL 111 (H) 03/15/2025 CO2 18 (L) 03/15/2025 BUN 35 (H) 03/15/2025 CREATININE 1.10 03/15/2025 PT/INR: No results found for: "PROTIME", "INR" Prealbumin: No results found for: "PREALBUMIN" Albumin:No components found for: "LABALBU" Sed Rate:No results found for: "SEDRATE" Micro: No components found for: "BC" Assessment/Plan: Nursing staff to perform dressing change: Right plantar foot: DFU (Fat) - Clean with NS, pack with Mesalt then cover with foam dressing daily and PRN - Limit pressure to right foot. Nutritional support Wound Care to follow Recommend to follow up at [facility] wound care center after hospital discharge. Any questions or concerns please secure chat "ACH wound/ostomy". Thank you for the consult! I personally obtained the larsen and critical portions of the history and physical exam. I reviewed the labs, imaging studies, and electronic medical record. I reviewed the chart documentation and discussed the patient with treatment team members. I have edited the note to reflect my clinical findingsand my assessment and plan. Please note, the time of this note does not reflect the time I saw thispatient today, but the time of this documentaton. Portions of this note including HPI, ROS, impression/plan, and examination may have been copied forward from admission to today as to provide important historical information essential in contributing to medical decision making. Documentation has been reviewed and edited as necessary to support clinical decision making for today's visit and to reflect my own independent evaluation of this patient. Decision making for today's visit and to reflectmy own independent evaluation of this patient. [1] Past Medical History: Diagnosis Date Arthritis Atrial fibrillation (HCC) Diabetes mellitus (HCC) Hyperlipidemia Hypertension Hypothyroidism Neuropathy [2] Past Surgical History: Procedure Laterality Date BACK SURGERY CHOLECYSTECTOMY [3] Family History Problem Relation Name Age of Onset Diabetes Father Ed Shue Hypertension Father Ed Shue Diabetes Son Hi Nelson Hypertension Son Hi Nelson [4] Social History Tobacco Use Smoking status: Former Current packs/day: 0.00 Types: Cigarettes Quit date: 1964 Years since quittin.6 Smokeless tobacco: Never Vaping Use Vaping status: Never Used Substance Use Topics Alcohol use: Yes Comment: drinks bee occasionally Drug use: Never [5] Allergies Allergen Reactions Tape Rash [6] No current facility-administered medications on file prior to encounter. Current Outpatient Medications on File Prior to Encounter Medication Sig Dispense Refill Alcohol Swabs (Alcohol Prep) 70 % pads 1 Pad 3 times daily. 200 each 2 apixaban (Eliquis) 5 MG tablet Take 5 mg by mouth 2 times daily. atenolol (Tenormin) 25 MG tablet Take 1 tablet (25 mg) by mouth 2 times daily. (Patient not taking:Reported on 03/09/2025) 60 tablet 0 atorvastatin (Lipitor) 20 MG tablet Take 20 mg by mouth daily. Blood Glucose Monitoring Suppl (Blood Glucose Monitor System) w/Device kit Check glucose 3x daily 1kit 0 Continuous Glucose Sensor (FreeStyle Javier 3 Plus Sensor) misc 1 each every 15 days. 2 each 11 gabapentin (Neurontin) 300 MG capsule Take 300 mg by mouth 2 times daily. glucose blood test strip Use as instructed 100 each 0 Insulin Lispro (Humalog) 100 UNIT/ML solution injection Inject 8 Units under the skin 3 times daily(with meals). (Patient not taking: Reported on 03/15/2025) Lactobacillus 0.05-0.05 MG tablet Take 4 tablets by mouth daily. Lancets Check glucose x3 daily 100 each 3 levothyroxine (Tirosint) 112 MCG capsule Take by mouth every morning (before breakfast). metFORMIN (Glucophage) 500 MG tablet Take 1 tablet (500 mg) by mouth 2 times daily (with meals). 60tablet 6 oxybutynin (Ditropan) 5 MG tablet Take 10 mg by mouth daily. semaglutide (Ozempic) 2 MG/3ML solution pen-injector Inject 0.5 mg under the skin 1 (one) time per week. 3 mL 11 sulfamethoxazole-trimethoprim (Bactrim) 400-80 MG tablet Take 1 tablet by mouth 2 times daily. [DISCONTINUED] insulin glargine (Lantus) 100 UNIT/ML injection Inject 32 Units under the skin Nightly. 10 mL 12 Cosigned by Hi Mckeon DO at 03/15/2025 4:41 PM EDT * Jimmie Pichardo MD - 03/13/2025 9:32 AM EDTAssociated Order(s): IP CONSULT TO CARDIOLOGY CARDIOLOGY CONSULTATION Assessment/Plan: Cardiovascular Diagnoses # Atrial fibrillation with RVR: Rates are now well controlled. Unclear why she had elevated VR, shedoes not have signs of systemic illness, denies history suggestive of infection, progressive anemia, withdrawal syndromes. Agree with transition to PO metoprolol tartrate 25mg BID as homegoing medication, and stopping atenolol. For uncomplicated atrial fibrillation she can establish in the cardiology clinic outpatient, which we can assist with Non-cardiovascular Diagnoses reviewed: # NAYELY: # Hyperkalemia: # DM2 History of Present Illness: Hanna Nelson is an 84 year-old woman presenting to the hospital with hyperkalemia and atrial fibrillation with RVR for which cardiology are consulted. Recent hospital stays 11/2024 with UTI, 01/2025 with diabetic foot infection and systemic illness, both times RVR events noted by documentation. Evaluated on consult by cardiology 11/2024 due to pauses noted on telemetry while in atrial fibrillation She states she does not have any current symptoms, she feels fine. Unsure why her potassium is high. Denies recent medication change. Just moved to the area, living in [place] independently, ambulates with a walker, getting around her home the way she would expect and has the assistance of familyclose by. She has known about atrial fibrillation for several years; this was managed by her primary doctor prior to her moving to [place]. She is in the process of establishing with a primary phsyciain herebut is open to seeing cardiology in the clinic. She is currently denying chest pain, pressure, shortness of breath, pedal edema. No palpitatoin sensation and states she has never felt any symptom associated with atrial fibrillation. Unsure if she goes in/out of afib. 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 CV Meds (ambulatory): Apixaban 5mg BID, atenolol 25mg BID Tests Reviewed: Chest X-Ray: No acute process from 03/12/2025 EKG: From 03/12/2025 demonstrates atrial fibrillation with single VPC Telemetry: Atrial fibrillation Physical Exam: VS: Vitals: 03/13/25 0452 03/13/25 0601 03/13/25 0630 03/13/25 0818 BP: 120/86 95/58 115/72 Pulse: 70 86 97 Resp: 16 18 14 Temp: TempSrc: SpO2: 98% 94% 100% Weight: 200 lb (90.7 kg) Height: 5' 10" (1.778 m) No intake or output data in the 24 hours ending 03/13/25 0932 @[id number]@ Gen: Comfortable, pleasant, conversant Neck: No JVP CV: Irregularly irregular, no murmurs Pulm: Clear Abd: Soft, thin Neuro: Nonfocal, formal exam deferred Extrem: Trace lower extremity edema of LLE Pertinent Labs: ABGs: No results found for: "PHART", "PO2ART", "XIJ2VIA" INR: No results for input(s): "INR" in the last 72 hours. Cardiac Injury Profile: No results for input(s): "CKTOTAL", "CKMB", "CKMBINDEX", "TROPONINI" in thelast 72 hours. Lipid Profile:No results found for: "TRIG", "HDL", "LDLCALC", "CHOL" Hemoglobin A1C: No results found for: "HGBA1C" Jimmie Pichardo MD Cardiology [facility] [place] 9:32 AM 03/13/25 documented in this [facility]08-04-2025 History of Present illness Narrative* Deny Barton MD - 03/15/2025 8:32 AM EDT Hospitalist Progress Note 03/15/2025 8:32 AM [phone]: Please page me for patient care issues. [phone]: Please page [facility] night Hospitalist for any issues. Subjective: Admit Date: 03/12/2025 PCP: Dorothy Medrano Room#: 1C-137/1C-137 A Interval History: Patient seen and examined 84-year-old female past medical history of atrial fibrillation anticoagulation, DM, hypertension, hyperlipidemia, hypothyroidism, chronic kidney disease stage III, peripheral neuropathy. Patient was admitted in January 2025--following treatment of her sepsis secondary to diabetic foot wound, acute kidney injury on chronic kidney disease stage III, atrial fibrillation with RVR, DM with hyperglycemia. Patient denies any chest pain, shortness of breath, palpitation No nausea, vomiting, abdominal pain No fever spike noted Lab data's / Imaging studies reviewed Potassium 4.4, creatinine 1.1 Accu-Cheks reviewed Urine analysis negative Past medical history : Medical History[1] Adult diet Regular; 5 carb choices (75 gm/meal) @[id number]@ Medications: Continuous Meds[2] Scheduled Meds[3] LABS: CBC: Recent Labs 03/12/25 1630 03/13/25 0619 03/14/25 011 WBC 10.6 10.5 7.8 RBC 4.28 3.72* 3.68* HGB 12.9 11.1* 11.0* HCT 39.8 34.9* 34.7* MCV 93.0 93.8 94.3 RDW 14.8 14.8 14.8 PLT 389 368 298 BMP: Recent Labs 03/13/2561803/14/25 0114 03/15/25 0041 NA 141 138 139 K 3.9 4.4 4.4 CL 113* 108* 111* CO2 19* 19* 18* BUN 44* 43* 35* CREATININE 1.09 1.46* 1.10 GLUCOSE 45* 159* 107 CALCIUM 9.4 9.0 8.9 ANIONGAP 9 11 10 LIVER PROFILE: Recent Labs 03/13/2561803/14/25113 AST 18 18 ALT 15 9 BILITOT 0.3 0.3 ALKPHOS 46 49 PROT 6.8 6.8 PT/INR: No results for input(s): "PROTIME", "INR" in the last 72 hours. CARDIAC ENZYMES: No results for input(s): "TROPONINI" in the last 72 hours. Procalcitonin: No results found for: "PROCAL" @RISRSLTSPECIALTY@ I reviewed: [x] laboratory results [x] radiographic results At the time of today's encounter. Pt was informed about the results. Objective: Vitals: BP 158/89 (BP Location: Left arm, Patient Position: Sitting) Pulse 88 Temp (!) 35.6 C (96.1 F) (Temporal) Resp 15 Ht 5' 10" (1.778 m) Wt 200 lb (90.7 kg) SpO2 99% BMI 28.70 kg/m Pulse Ox: SpO2 Av.8 % Min: 97 % Max: 100 % Supplemental O2: General appearance: No apparent distress, HEENT: Eyes: Pallor noted Cardiovascular: S1S2 heard, no murmur Respiratory: Clear to auscultation bilaterally anteriorly Abdomen: Soft, non-tender, non-distended, no mass palpable with normal bowel sounds. Neurology- Awake alert, answering questions No focal neurology noted Extremity-trace peripheral edema both lower extremities Right plantar foot wound, POA Assessment Acute problems-- Hyperkalemia admission, resolved Atrial fibrillation with rapid ventricular response Acute kidney injury resolved on chronic kidney disease stage III NAGMA Hypoglycemia, resolved Chronic issue-- Right plantar foot wound, POA DM Hypertension Hyperlipidemia CKD stage III Hypothyroidism Peripheral neuropathy History of atrial fibrillation on anticoagulation Plan DC IV fluid On Metoprolol 25 mg p.o. twice daily Continue anticoagulation with Eliquis 5 mg twice daily Echo pending Seen by cardiology team, recommendation noted Monitor Accu-Chek, continue Lantus 16 units at night, low-dose sliding scale insulin as ordered Wound care team consulted-evaluation pending Continue rest of medication as ordered Patient was informed about all work up and treatment plan Discussed with nursing staff Toxic drug monitoring/narrow therapeutic index drug monitoring : # Drug name : Insulin # Route administered : Subcu # Method of monitoring : Accu-Chek Extended Emergency Contact Information Primary Emergency Contact: Hi Nelson Relation: Son Preferred language: Burmese Metal Bumper needed? No Secondary Emergency Contact: [facility] Mobile Relation: Daughter Advance Directive: Full Code Discharge planning: Anticipated discharge home later today, pending echo/wound care evaluation NOTE: This report was transcribed using voice recognition software. Every effort was made to ensureaccuracy; however, inadvertent computerized head up operator helper errors may be present. Deny Barton MD Division of Hospitalist Medicine [facility] PAGER: Epic chat Addendum Patient mentioned that she does not take scheduled Humalog insulin at home. She takes Lantus 32 units, metformin, Ozempic injection weekly Plan Patient will continue with metformin, Ozempic Dose of Lantus decreased to 26 units subcu daily at the time of discharge Patient advised to monitor blood sugar at home and follow-up with PCP as outpatient Addendum Echo reviewed showed EF of 57%, mild to moderate mitral regurgitation, tricuspid regurgitation, mild aortic regurgitation, RVSP 35. Seen by wound care team--with diagnosis of right plantar foot DFU Plan DC home Discussed with patient's son Hi, all workup/treatment plan was informed. Patient's son mentioned that she takes Ozempic, Lantus, metformin at home. [1] Past Medical History: Diagnosis Date Arthritis Atrial fibrillation (HCC) Diabetes mellitus (HCC) Hyperlipidemia Hypertension Hypothyroidism Neuropathy [2] [3] apixaban, 5 mg, Oral, BID gabapentin, 300 mg, Oral, BID insulin glargine, 16 Units, SubCUTAneous, Nightly insulin lispro, 0-6 Units, SubCUTAneous, TID WC And insulin lispro, 0-6 Units, SubCUTAneous, Nightly levothyroxine, 112 mcg, Oral, qAM AC metoprolol tartrate, 25 mg, Oral, BID trospium, 20 mg, Oral, BID AC * Erica Bailey, PT - 03/14/2025 12:50 PM EDT Images from the original note were not included. PHYSICAL THERAPY [facility] Initial Evaluation Name/MRN: Hanna Nelson ([id number]) Evaluation Date: 03/14/2025 Date of : 1940 Admission Date: 03/12/2025 3:01 PM Age: 84 y.o. Room/Bed: [facility]137/1C137 A Discharge Recommendation: Home with assist PRN Equipment Needed: No Assessment IMPRESSION: Pt admitted for concern of Afib. She is currently Indep/ Modif Indep for bed mobility ,transfers and ambulation with the FWW. Pt reported she feels at her baseline. No concerns for pt atthis time, recommend disch to home with assist as needed (pt has family in the area that help her when needed). Will sign off at this time. Admitting Diagnosis: A Fib Prognosis: good Performance Deficits /Impairments: N/A Decision Making: Low Complexity Subjective Pt in the bed and agreeable to PT. Reported she feels fine and that she has been walking around herroom Indep and at home with no problems. Pt reported a wound to her foot that's "been there forever" and has been walking on it . Notes from December 2024 indicate she had an I&D and was NWB. Pt reported she is no longer NWB and has been walking on it for months. Pain: Pt denies any current pain. Past Medical History: Medical History[1] Past Surgical History: Surgical History[2] Admission Diagnosis: Patient Active Problem List Diagnosis Date Noted Atrial fibrillation with rapid ventricular response ([facility]) 03/12/2025 Sepsis ([facility]) 01/26/2025 Confusion 12/02/2024 Pes planus of both feet 10/16/2024 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 10/16/2024 Non-pressure chronic ulcer of other part of right foot with necrosis of muscle ([facility]) 10/16/2024 Diabetic ulcer of right foot associated with diabetes mellitus due to underlying condition, with necrosis of muscle ([facility]) 10/09/2024 Uncontrolled type 2 diabetes mellitus with hyperglycemia ([facility]) 09/18/2024 Medical Precautions: No active isolations Proper PPE donned/doffed in accordance with facility standards. Fall Risk: Proctor Fall Risk Score: 60 (High Risk) Family/Caregiver Present: none Overall Cognitive Status: WNL Overall Orientation Status: Oriented x4 Vision: Not Assessed Hearing: normal Social/Functional History Patient admitted from home. Lives With: Alone Type of Home: condo Home Layout: Single Level Home Home Access: Level Entry Bathroom Shower/Tub: Toilet: Standard Home Equipment: 4 wheeled walker and rollator Homemaking Responsibilities: Independent Receives Help From: Family Active Bindery Manager: No Prior Level of Function Prior Level of ADL Function: Independent Prior Level of Mobility: Independent; Device: Front wheeled walker Prior Level of Transfers: Independent Objective Lower Extremity Assessment AROM: WNL PROM: Not assessed this session Strength: WFL Sensation: Not assessed this session Balance: Balance During Session: Posture: good Sitting - Static: Independent Sitting - Dynamic: Independent Standing - Static: Modified Independent Standing - Dynamic: Modified Independent Bed Mobility: Supine to sit: Independent Sit to supine: Independent Transfers Sit to stand: Independent Stand to sit: Independent Ambulation Ambulation 1 Assistive device(s) used: Front wheeled walker Assist level: Modified Independent Distance (ft): 60 ft ( 2 long laps in room) Quality of gait: No gait deviations, No LOB HR 120-145bpm during walking. At rest 95-110bpm. RN aware. Denied all symptoms. Outcome Measures AM-PAC How much HELP from another person do you currently need Turning from your back to your side while in a flat bed without using bedrails?: None Moving from lying on your back to sitting on the side of a flat bed without using bedrails?: None Moving to and from a bed to a chair (including a wheelchair)?: None Standing up from a chair using your arms (wheelchair or bedside chair)?: None Walking in a hospital room?: None Stair climbing assessed?: No AM-PAC Inpatient Mobility Raw Score (No Stairs) : 20 JH-HLM -HLM Score: Walked 25 ft or more (i.e. walked outside of room) Plan No skilled acute PT indicated at this time. Please reconsult should changes occur. Safety/Education Safety Safety Devices in place: call light within reach, left in bed, and nurse notified Restraints: No Education Education Given To: patient Education Provided: PT Role, Discharge Recommendations, and Benefits of Increasing Activity Education Method: Verbal and Demonstration Barriers to Learning: None Education Outcome: Verbalized Understanding Goals Patient Stated Goal: To return to home very soon Therapy Time Individual Co-Treatment Co-Evaluation Time In 1055 Time Out 1105 Minutes 10 Erica Bailey PT Patient's Physical Therapy Plan of Care supervision is transferred to a [facility] Physical Therapist. Goals and/or treatment plan was established in collaboration with patient/family/other representatives. [1] Past Medical History: Diagnosis Date Arthritis Atrial fibrillation (HCC) Diabetes mellitus (HCC) Hyperlipidemia Hypertension Hypothyroidism Neuropathy [2] Past Surgical History: Procedure Laterality Date BACK SURGERY CHOLECYSTECTOMY * Deny Barton MD - 03/14/2025 8:07 AM EDT Hospitalist Progress Note 03/14/2025 8:07 AM [phone]: Please page me for patient care issues. [phone]: Please page [facility] night Hospitalist for any issues. Subjective: Admit Date: 03/12/2025 PCP: Dorothy Medrano Room#: 1C-137/1C-137 A Interval History: Patient seen and examined 84-year-old female past medical history of atrial fibrillation anticoagulation, DM, hypertension, hyperlipidemia, hypothyroidism, chronic kidney disease stage III, peripheral neuropathy. Patient was admitted in January 2025--following treatment of her sepsis secondary to diabetic foot wound, acute kidney injury on chronic kidney disease stage III, atrial fibrillation with RVR, DM with hyperglycemia. Patient lying in bed comfortably, denies any chest pain, shortness of breath, cough No nausea, vomiting, abdominal pain No fever spike noted Blood pressure 145/91 Lab data's / Imaging studies reviewed Potassium today 4.4, creatinine 1.46, TSH normal, hemoglobin 11 Past medical history : Medical History[1] Adult diet Regular; 5 carb choices (75 gm/meal) @[id number]@ Medications: Continuous Meds[2] Scheduled Meds[3] LABS: CBC: Recent Labs 03/12/25 16303/13/2561803/14/25 0114 WBC 10.6 10.5 7.8 RBC 4.28 3.72* 3.68* HGB 12.9 11.1* 11.0* HCT 39.8 34.9* 34.7* MCV 93.0 93.8 94.3 RDW 14.8 14.8 14.8 PLT 389 368 298 BMP: Recent Labs 03/12/25 16303/13/25 0619 03/14/25 0114 NA 136 141 138 K 5.4* 3.9 4.4 CL 106 113* 108* CO2 18* 19* 19* BUN 45* 44* 43* CREATININE 1.46* 1.09 1.46* GLUCOSE 167* 45* 159* CALCIUM 9.8 9.4 9.0 ANIONGAP 12 9 11 LIVER PROFILE: Recent Labs 03/13/2561803/14/25 0114 AST 18 18 ALT 15 9 BILITOT 0.3 0.3 ALKPHOS 46 49 PROT 6.8 6.8 PT/INR: No results for input(s): "PROTIME", "INR" in the last 72 hours. CARDIAC ENZYMES: No results for input(s): "TROPONINI" in the last 72 hours. Procalcitonin: No results found for: "PROCAL" @RISRSLTSPECIALTY@ I reviewed: [x] laboratory results [x] radiographic results At the time of today's encounter. Pt was informed about the results. Objective: Vitals: BP 145/91 (BP Location: Left arm, Patient Position: Sitting) Pulse 89 Temp 36.2 C (97.1F) (Temporal) Resp 17 Ht 5' 10" (1.778 m) Wt 200 lb (90.7 kg) SpO2 92% BMI 28.70 kg/m Pulse Ox: SpO2 Av % Min: 92 % Max: 100 % Supplemental O2: General appearance: No apparent distress, HEENT: Eyes: Pallor noted Oral: Tongue is semi-moist Cardiovascular: S1S2 heard, no murmur Respiratory: Clear to auscultation bilaterally anteriorly Abdomen: Soft, non-tender, non-distended, no mass palpable with normal bowel sounds. Neurology- Awake alert, answering questions No focal neurology noted Extremity-trace peripheral edema both lower extremities Right plantar foot wound, POA Assessment Acute problems-- Hyperkalemia admission, resolved Atrial fibrillation with rapid ventricular response Acute kidney injury on chronic kidney disease stage III NAGMA Hypoglycemia, resolved Chronic issue-- Right plantar foot wound, POA DM Hypertension Hyperlipidemia CKD stage III Hypothyroidism Peripheral neuropathy History of atrial fibrillation on anticoagulation Plan Continue normal saline at 100 cc/h for 1 L On Metoprolol 25 mg p.o. twice daily Continue anticoagulation with Eliquis 5 mg twice daily Echo pending Seen by cardiology team, recommendation noted Monitor Accu-Chek, continue Lantus 16 units at night, low-dose sliding scale insulin as ordered Wound care team consulted-evaluation pending Continue rest of medication as ordered BMP panel in a.m. PT/OT consulted Patient was informed about all work up and treatment plan Toxic drug monitoring/narrow therapeutic index drug monitoring : # Drug name : Insulin # Route administered : Subcu # Method of monitoring : Accu-Chek Extended Emergency Contact Information Primary Emergency Contact: Hi Nelson Relation: Son Preferred language: Burmese Metal Bumper needed? No Secondary Emergency Contact: [facility] Mobile Relation: Daughter Advance Directive: Full Code Discharge planning: Anticipated discharge in 1-2 days NOTE: This report was transcribed using voice recognition software. Every effort was made to ensureaccuracy; however, inadvertent computerized head up operator helper errors may be present. Deny Barton MD Division of Hospitalist Medicine [employer] [facility] [place] [employer] PAGER: Epic chat [1] Past Medical History: Diagnosis Date Arthritis Atrial fibrillation (HCC) Diabetes mellitus (HCC) Hyperlipidemia Hypertension Hypothyroidism Neuropathy [2] sodium chloride, 100 mL/hr, Last Rate: 100 mL/hr (03/13/25 0816) [3] apixaban, 5 mg, Oral, BID gabapentin, 300 mg, Oral, BID insulin glargine, 16 Units, SubCUTAneous, Nightly insulin lispro, 0-6 Units, SubCUTAneous, TID WC And insulin lispro, 0-6 Units, SubCUTAneous, Nightly levothyroxine, 112 mcg, Oral, qAM AC metoprolol tartrate, 25 mg, Oral, BID trospium, 20 mg, Oral, BID AC * Priscila Jason - 03/14/2025 6:58 AM EDT Nutrition rescreen completed. Chart reviewed. Patient to be monitored and followed by the diet optical engineering technician. Priscila Jason DT * Deny Barton MD - 03/13/2025 7:16 AM EDT Hospitalist Progress Note 03/13/2025 7:16 AM [phone]: Please page me for patient care issues. [phone]: Please page [facility] Hospitalist for any issues. Subjective: Admit Date: 03/12/2025 PCP: Dorothy Medrano Room#: Interval History: Patient seen and examined 84-year-old female past medical history of atrial fibrillation anticoagulation, DM, hypertension, hyperlipidemia, hypothyroidism, chronic kidney disease stage III, peripheral neuropathy. Patient was admitted in January 2025--following treatment of her sepsis secondary to diabetic foot wound, acute kidney injury on chronic kidney disease stage III, atrial fibrillation with RVR, DM with hyperglycemia. Admitted following abnormal lab with hyperkalemia. Patient also had A-fib with RVR on admission. Denies any chest pain, shortness of breath, cough, sputum No nausea, vomiting, abdominal pain Denies any diarrhea, fever, chills. Patient had hypoglycemia today, blood sugar was 58 Lab data's / Imaging studies reviewed Potassium on admission 5.4, today 3.9 CO2 of 19, creatinine admission 1.46, improved to 1.09, LFT panel normal Troponin negative, hemoglobin 11.1 EKG reviewed independently showed atrial fibrillation with rapid ventricular rate on admission Chest x-ray negative for acute process Past medical history : Medical History[1] Adult diet Regular; 5 carb choices (75 gm/meal) @[id number]@ Medications: Continuous Meds[2] Scheduled Meds[3] LABS: CBC: Recent Labs 03/12/25 1630 03/13/25 0619 WBC 10.6 10.5 RBC 4.28 3.72* HGB 12.9 11.1* HCT 39.8 34.9* MCV 93.0 93.8 RDW 14.8 14.8 PLT 389 368 BMP: Recent Labs 03/12/25 1630 03/13/25 0619 NA 136 141 K 5.4* 3.9 CL 106 113* CO2 18* 19* BUN 45* 44* CREATININE 1.46* 1.09 GLUCOSE 167* 45* CALCIUM 9.8 9.4 ANIONGAP 12 9 LIVER PROFILE: Recent Labs 03/13/25 0619 AST 18 ALT 15 BILITOT 0.3 ALKPHOS 46 PROT 6.8 PT/INR: No results for input(s): "PROTIME", "INR" in the last 72 hours. CARDIAC ENZYMES: No results for input(s): "TROPONINI" in the last 72 hours. Procalcitonin: No results found for: "PROCAL" @RISRSLTSPECIALTY@ I reviewed: [x] laboratory results [x] radiographic results At the time of today's encounter. Pt was informed about the results. Objective: Vitals: BP 95/58 Pulse 86 Temp 36.8 C (98.2 F) (Temporal) Resp 18 Ht 5' 10" (1.778 m) Wt 200 lb (90.7 kg) SpO2 94% BMI 28.70 kg/m Pulse Ox: SpO2 Av.6 % Min: 94 % Max: 100 % Supplemental O2: General appearance: No apparent distress, HEENT: Eyes: Pallor noted Oral: Tongue is semi-moist Cardiovascular: S1S2 heard, no murmur Respiratory: Clear to auscultation bilaterally anteriorly Decrease breath sound both bases posteriorly Abdomen: Soft, non-tender, non-distended, no mass palpable with normal bowel sounds. Musculoskeletal: No obvious deformities seen Neurology- Awake alert, answering questions No focal neurology noted Extremity-trace peripheral edema both lower extremities Right plantar foot wound, POA Assessment Acute problems-- Hyperkalemia admission Atrial fibrillation with rapid ventricular response Acute kidney injury on chronic kidney disease stage III NAGMA Hypoglycemia Chronic issue-- Right plantar foot wound, POA DM Hypertension Hyperlipidemia CKD stage III Hypothyroidism Peripheral neuropathy History of atrial fibrillation on anticoagulation Plan Normal saline at 100 cc/h Metoprolol 25 mg p.o. twice daily Continue anticoagulation with Eliquis 5 mg twice daily Cardiology team consulted Echo ordered Check TSH level, continue current dose of levothyroxine as ordered BMP panel in a.m. On ADA 1800 diet Discontinue scheduled Humalog 8 units 3 times a day insulin. Low-dose sliding scale insulin, dose of Lantus was also decreased to 16 units subcu daily Wound care team consulted Continue rest of medication as ordered Labs ordered for AM PT/OT consulted Patient was informed about all work up and treatment plan Discussed with nursing staff in ED Toxic drug monitoring/narrow therapeutic index drug monitoring : # Drug name : Insulin # Route administered : Subcu # Method of monitoring : Accu-Chek Extended Emergency Contact Information Primary Emergency Contact: Hi Nelson Relation: Son Preferred language: Burmese Metal Bumper needed? No Secondary Emergency Contact: [facility] Mobile Relation: Daughter Advance Directive: Full Code Discharge planning: Anticipated discharge in 2 days NOTE: This report was transcribed using voice recognition software. Every effort was made to ensureaccuracy; however, inadvertent computerized head up operator helper errors may be present. Deny Barton MD Division of Hospitalist Medicine [facility] [employer] PAGER: [email or web address] chat [1] Past Medical History: Diagnosis Date Arthritis Atrial fibrillation (HCC) Diabetes mellitus (HCC) Hyperlipidemia Hypertension Hypothyroidism Neuropathy [2] sodium chloride, 100 mL/hr [3] apixaban, 5 mg, Oral, BID gabapentin, 300 mg, Oral, BID insulin glargine, 16 Units, SubCUTAneous, Nightly insulin lispro, 0-6 Units, SubCUTAneous, TID WC And insulin lispro, 0-6 Units, SubCUTAneous, Nightly levothyroxine, 112 mcg, Oral, qAM AC metoprolol tartrate, 25 mg, Oral, BID trospium, 20 mg, Oral, BID AC documented in this [facility]08-02-2025 Consult note* Jimmie Pichardo MD - 03/13/2025 9:32 AM EDTAssociated Order(s): IP CONSULT TO CARDIOLOGY CARDIOLOGY CONSULTATION Assessment/Plan: Cardiovascular Diagnoses # Atrial fibrillation with RVR: Rates are now well controlled. Unclear why she had elevated VR, shedoes not have signs of systemic illness, denies history suggestive of infection, progressive anemia, withdrawal syndromes. Agree with transition to PO metoprolol tartrate 25mg BID as homegoing medication, and stopping atenolol. For uncomplicated atrial fibrillation she can establish in the cardiology clinic outpatient, which we can assist with Non-cardiovascular Diagnoses reviewed: # NAYELY: # Hyperkalemia: # DM2 History of Present Illness: Hanna Nelson is an 84 year-old woman presenting to the hospital with hyperkalemia and atrial fibrillation with RVR for which cardiology are consulted. Recent hospital stays 11/2024 with UTI, 01/2025 with diabetic foot infection and systemic illness, both times RVR events noted by documentation. Evaluated on consult by cardiology 11/2024 due to pauses noted on telemetry while in atrial fibrillation She states she does not have any current symptoms, she feels fine. Unsure why her potassium is high. Denies recent medication change. Just moved to the area, living in [place] independently, ambulates with a walker, getting around her home the way she would expect and has the assistance of familyclose by. She has known about atrial fibrillation for several years; this was managed by her primary doctor prior to her moving to [place]. She is in the process of establishing with a primary phsyciain herebut is open to seeing cardiology in the clinic. She is currently denying chest pain, pressure, shortness of breath, pedal edema. No palpitatoin sensation and states she has never felt any symptom associated with atrial fibrillation. Unsure if she goes in/out of afib. 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 CV Meds (ambulatory): Apixaban 5mg BID, atenolol 25mg BID Tests Reviewed: Chest X-Ray: No acute process from 03/12/2025 EKG: From 03/12/2025 demonstrates atrial fibrillation with single VPC Telemetry: Atrial fibrillation Physical Exam: VS: Vitals: 03/13/25 0452 03/13/25 0601 03/13/25 0630 03/13/25 0818 BP: 120/86 95/58 115/72 Pulse: 70 86 97 Resp: 16 18 14 Temp: TempSrc: SpO2: 98% 94% 100% Weight: 200 lb (90.7 kg) Height: 5' 10" (1.778 m) No intake or output data in the 24 hours ending 03/13/25 0932 @[id number]@ Gen: Comfortable, pleasant, conversant Neck: No JVP CV: Irregularly irregular, no murmurs Pulm: Clear Abd: Soft, thin Neuro: Nonfocal, formal exam deferred Extrem: Trace lower extremity edema of LLE Pertinent Labs: ABGs: No results found for: "PHART", "PO2ART", "CAH4GFQ" INR: No results for input(s): "INR" in the last 72 hours. Cardiac Injury Profile: No results for input(s): "CKTOTAL", "CKMB", "CKMBINDEX", "TROPONINI" in thelast 72 hours. Lipid Profile:No results found for: "TRIG", "HDL", "LDLCALC", "CHOL" Hemoglobin A1C: No results found for: "HGBA1C" Jimmie Pichardo MD Cardiology [facility] [place] 9:32 AM 03/13/25 [facility] Work Phone: 1(217) 214-700108-02-2025 Emergency department Note* Laura Urrutia RN - 03/13/2025 8:15 AM EDT BGT rechecked after patient ate breakfast. BGT 130. [id number] Emergency department Note* Laura Urrutia RN - 03/13/2025 8:15 AM EDT BGT rechecked after patient ate breakfast. BGT 130. * Laura Urrutia RN - 03/13/2025 7:49 AM EDT Breakfast tray delivered to patient * Faby Daugherty RN - 03/13/2025 7:13 AM EDT Morning blood work resulted with a BS 45. Checked with glucometer and it was 58. Pt provided crackers, apple juice, and a breakfast tray was ordered. No acute signs of distress. * Sebastián Pennington RN - 03/12/2025 6:26 PM EDT This RN notified that pt needs US line. * Anastasia Rodriguez MD - 03/12/2025 2:56 PM EDT Emergency Department Encounter [facility] EMERGENCY DEPT Patient: Hanna Nelson : 1940 Date of Evaluation: 03/12/2025 ED Supervising Physician: Anastasia Rodriguez MD I personally evaluated Hanna Nelson and made/approved the management plan and take responsibilityfor the patient management. This will serve as my Supervisory note and shared attestation. I did perform a substantive portion of the visit including all aspects of the Medical Decision Making. I wore appropriate PPE for the entirety of this encounter. In brief, Hanna Nelson is a 84 y.o. that presents to the emergency department for abnormal labs. She was entered by her PCP after getting lab work done and showed a elevated potassium level at 6.1.She states that she feels well. Her family who is with her states that she normally does not have symptoms whenever she has any kind of illness. Does have history of atrial fibrillation. No history of hyperkalemia Focused exam: chronically ill-appearing female no acute distress. Vital signs reviewed and unremarkable. Patient has a tachycardic Rate with irregular rhythm when auscultated. 2+ radial pulses bilaterally. Lung clear to auscultation bilaterally. Brief ED course/MDM: 84-year-old presenting for abnormal labs. Vital signs upon arrival are unremarkable however EKG shows atrial fibrillation with rapid ventricular rate. She does have a history of A-fib. We did labs here in the emergency department gave her IV metoprolol. This did help rate control her. She is given a small bolus of IV fluids as well. Labs done here do show an elevated creatinine which is an NAYELY for her. She is a very mild hyperkalemia 5.4. Otherwise labs are unremarkable however given the NAYELY as well as the rapid ventricular rate patient will be admitted for further care. Diagnostics interpreted by me: EKG I personally discussed the patient's management with other clinicians: All diagnostic, treatment, and disposition decisions were made by myself in conjunction with the RAJENDRA. For all further details of the patient's emergency department visit, please see their documentation. (Comment: Please note this report has been produced using speech recognition software and may contain errors related to that system including errors in grammar, punctuation, and spelling, as well as words and phrases that may be inappropriate. If there are any questions or concerns please feel freeto contact the dictating provider for clarification.) Anastasia Rodriguez MD Acute Care [facility] Anastasia Rodriguez MD 03/12/252231 documented in this [facility]08-02-2025 Emergency department Note* Laura Urrutia RN - 03/13/2025 7:49 AM EDT Breakfast tray delivered to patient [id number] Discharge instructions* Discharge Instr - Activity* Deny Barton MD - 03/13/2025 7:22 AM EDT As tolerated * Discharge Instr - Diet* Deny Barton MD - 03/13/2025 7:22 AM EDT ADA 1800/cardiac diet documented in this [facility]08-02-2025 Emergency department Note* Faby Daugherty RN - 03/13/2025 7:13 AM EDT Morning blood work resulted with a BS 45. Checked with glucometer and it was 58. Pt provided crackers, apple juice, and a breakfast tray was ordered. No acute signs of distress. [id number] History and physical note* Patel Can MD - 03/12/2025 9:05 PM EDT Attending History and Physical Admit Date: 03/12/2025 PCP: Dorothy Medrano CHIEF COMPLAINT: Abnormal lab values, reported hyperkalemia Reason for Admission: Acute kidney injury, atrial fibrillation with RVR History Obtained From: patient, EMR HISTORY OF PRESENT ILLNESS: Hanna is a 84 y.o. female with past medical history below who presents with concern for abnormal lab values on routine lab work, reported potassium >6. Patient history includes atrial fibrillation, DM2, HLD, HTN and hypothyroidism. Patient states was at her medical provider for routine lab work-denies sensation of chest pain or palpitations. Initial ED workup notes potassium improved from reported prior level at 5.4. BUN/creat at 45/1.46. Glucose of 167. Bicarb slightly decreased at 18. Troponin 4-6, 6 on recheck. WBCs WNL at 10.6. ECG noting A-fib with RVR, HR of 143 -patient received 25 mg p.o. metoprolol with improvement of heart rate <100 bpm. Will admit for further evaluation and management. -On assessment patient is awake, alert pleasant and conversant. With review of medications patient reports currently being off atenolol-is unsure of why exactly but states it has been >1-month -Last cardiology assessment from inpatient admission 11/2024-Per documentation was seen for pausing heartbeat. Specialist noted at that time to continue patient's atenolol, however noted that "it may be at some point changed or reducing the dose. Atenolol is primarily renally excreted." Noted that patient is on Eliquis for cardiac concern and recommended establishing with an outpatient cardiology service Past Medical History: Past Medical History: Diagnosis Date Arthritis Atrial fibrillation (HCC) Diabetes mellitus (HCC) Hyperlipidemia Hypertension Hypothyroidism Neuropathy Past Surgical History: Surgical History[1] Social History: Social History Socioeconomic History Marital status: Spouse name: Not on file Number of children: Not on file Years of education: Not on file Highest education level: Not on file Occupational History Not on file Tobacco Use Smoking status: Former Current packs/day: 0.00 Types: Cigarettes Quit date: 1965 Years since quittin.6 Smokeless tobacco: Never Vaping Use Vaping status: Never Used Substance and Sexual Activity Alcohol use: Yes Comment: drinks bee occasionally Drug use: Never Sexual activity: Not on file Other Topics Concern Not on file Social History Narrative Not on file Social Drivers of Health Financial Resource Strain: Not on file Food Insecurity: No Food Insecurity (12/03/2024) Hunger Vital Sign Worried About Running Out of Food in the Last Year: Never true Ran Out of Food in the Last Year: Never true Transportation Needs: No Transportation Needs (12/03/2024) PRAPARE - Transportation Lack of Transportation (Medical): No Lack of Transportation (Non-Medical): No Physical Activity: Not on file Stress: Not on file Social Connections: Not on file Intimate Partner Violence: Not At Risk (12/03/2024) Humiliation, Afraid, Rape, and Kick questionnaire Fear of Current or Ex-Partner: No Emotionally Abused: No Physically Abused: No Sexually Abused: No Housing Stability: Low Risk (12/03/2024) Housing Stability Vital Sign Unable to Pay for Housing in the Last Year: No Number of Times Moved in the Last Year: 1 Homeless in the Last Year: No Family History: Family History[2] Medications Reconciliation: Medications were reviewed in chart but unable to verify accurate with patient Allergies: Allergies[3] REVIEW OF SYSTEMS: 10 point ROS obtained, as per HPI, otherwise NEG Vitals: BP (!) 155/92 Pulse 107 Temp 36.8 C (98.2 F) (Temporal) Resp 18 SpO2 98% BMI Classification: Pt Weigth last reported as 200lb. Pt height not recorded Pulse Ox: SpO2 Av.3 % Min: 95 % Max: 100 % Supplemental O2: PHYSICAL EXAM: Physical Exam Constitutional: General: She is awake. HENT: Head: Normocephalic and atraumatic. Eyes: General: Vision grossly intact. Gaze aligned appropriately. Extraocular Movements: Extraocular movements intact. Cardiovascular: Rate and Rhythm: Normal rate. Rhythm irregularly irregular. Pulmonary: Effort: Pulmonary effort is normal. Skin: General: Skin is warm and dry. Neurological: General: No focal deficit present. Mental Status: She is alert and oriented to person, place, and time. Cranial Nerves: Cranial nerves 2-12 are intact. Psychiatric: Behavior: Behavior is cooperative. DATA: CBC: Recent Labs 03/12/25 1630 WBC 10.6 RBC 4.28 HGB 12.9 HCT 39.8 MCV 93.0 RDW 14.8 PLT 389 BMP: Recent Labs 03/12/25 1630 NA 136 K 5.4* CL 106 CO2 18* BUN 45* CREATININE 1.46* GLUCOSE 167* CALCIUM 9.8 ANIONGAP 12 LIVER PROFILE:No results for input(s): "AST", "ALT", "BILITOT", "ALKPHOS", "PROT" in the last 72 hours. No lab exists for component: "LABALBU" PT/INR: No results for input(s): "PROTIME", "INR" in the last 72 hours. CARDIAC ENZYMES: No results for input(s): "TROPONINI" in the last 72 hours. Procalcitonin: No results found for: "PROCAL" Urine Culture: Results for orders placed or performed during the hospital encounter of 01/25/25 Urine culture Collection Time: 01/26/25 12:22 PM Specimen: Urine, Clean Catch Result Value Ref Range Urine Culture Normal urogenital fabio present COVID-19 PCR: No results for input(s): "COVID19" in the last 72 hours. I reviewed: [x] laboratory results [x] radiographic results At the time of today's encounter. Pt was advised of the results. Data: Assessment Discussed management with the ED provider and agree with hospitalization. Acute, acute on chronic, unstable/uncontrolled chronic problems/diagnoses: Atrial fibrillation with RVR - Patient on telemetry, continue to monitor - Patient reports being off atenolol for at least the past month -Will check a.m. TSH - As needed IV metoprolol - Echocardiogram in a.m. - Cardiology consult for a.m. assessment, determination to continue rate controlling medication - Continue Eliquis 5 mg 2. Reported concern for hyperkalemia - Telemetry - Recheck levels in a.m. 3. Acute kidney injury - Patient is aware that she has had decreasing renal function - Possible why was taken off atenolol (?) - Hold patient's metformin, renally excreted medications - Recheck labs in a.m. Stable chronic problems affecting care, new non-acute diagnoses: Hyperlipidemia 2. Hypertension 3. Hypothyroidism - Check a.m. TSH - Levothyroxine 112 mcg 4. Diabetes mellitus with neuropathy -PDMP reviewed-gabapentin 300 mg - Continue home diabetic regimen with exception of metformin due to decreased renal function - Check blood glucose q. ACHS with insulin sliding scale coverage - Hypoglycemia protocol in place Plan As a result of the above findings & factors, the following mgmt was pursued: - am labs, replace lytes prn - PT/OT/CM/SW - delirium precautions: increase activity and limit nighttime disturbances - DVT prophylaxis: encourage ambulation and already anticoagulated Complexity: Chronic illness with mild to moderate exacerbation, progression, or side effect of tx (MOD). Multiple stable chronic illnesses (MOD). Risk: Admission to hospital-level care was considered or occurred (HIGH). Advance Directive: Full Code Anticipated Discharge - Date -03/14 - Location - Home Total time spent (which include face to face and non face to face encounters) : 75 minutes. Extended Emergency Contact Information Primary Emergency Contact: Hi Nelson Relation: Son Preferred language: Burmese Metal Bumper needed? No Secondary Emergency Contact: Melba Black [place] Relation: Daughter Patel Juan F Can MD Division of Hospital Medicine Inpatient Medical Services/[facility] [1] Past Surgical History: Procedure Laterality Date BACK SURGERY CHOLECYSTECTOMY [2] Family History Problem Relation Name Age of Onset Diabetes Father Ed Shue Hypertension Father Ed Shue Diabetes Son Hi Nelson Hypertension Son Hi Nelson [3] Allergies Allergen Reactions Tape Rash [id number] [facility]08-01-2025 History and physical note* Patel Can MD - 03/12/2025 9:05 PM EDT Attending History and Physical Admit Date: 03/12/2025 PCP: Dorothy Medrano CHIEF COMPLAINT: Abnormal lab values, reported hyperkalemia Reason for Admission: Acute kidney injury, atrial fibrillation with RVR History Obtained From: patient, EMR HISTORY OF PRESENT ILLNESS: Hanna is a 84 y.o. female with past medical history below who presents with concern for abnormal lab values on routine lab work, reported potassium >6. Patient history includes atrial fibrillation, DM2, HLD, HTN and hypothyroidism. Patient states was at her medical provider for routine lab work-denies sensation of chest pain or palpitations. Initial ED workup notes potassium improved from reported prior level at 5.4. BUN/creat at 45/1.46. Glucose of 167. Bicarb slightly decreased at 18. Troponin 4-6, 6 on recheck. WBCs WNL at 10.6. ECG noting A-fib with RVR, HR of 143 -patient received 25 mg p.o. metoprolol with improvement of heart rate <100 bpm. Will admit for further evaluation and management. -On assessment patient is awake, alert pleasant and conversant. With review of medications patient reports currently being off atenolol-is unsure of why exactly but states it has been >1-month -Last cardiology assessment from inpatient admission 11/2024-Per documentation was seen for pausing heartbeat. Specialist noted at that time to continue patient's atenolol, however noted that "it may be at some point changed or reducing the dose. Atenolol is primarily renally excreted." Noted that patient is on Eliquis for cardiac concern and recommended establishing with an outpatient cardiology service Past Medical History: Past Medical History: Diagnosis Date Arthritis Atrial fibrillation (HCC) Diabetes mellitus (HCC) Hyperlipidemia Hypertension Hypothyroidism Neuropathy Past Surgical History: Surgical History[1] Social History: Social History Socioeconomic History Marital status: Spouse name: Not on file Number of children: Not on file Years of education: Not on file Highest education level: Not on file Occupational History Not on file Tobacco Use Smoking status: Former Current packs/day: 0.00 Types: Cigarettes Quit date: 1964 Years since quittin.6 Smokeless tobacco: Never Vaping Use Vaping status: Never Used Substance and Sexual Activity Alcohol use: Yes Comment: drinks bee occasionally Drug use: Never Sexual activity: Not on file Other Topics Concern Not on file Social History Narrative Not on file Social Drivers of Health Financial Resource Strain: Not on file Food Insecurity: No Food Insecurity (12/03/2024) Hunger Vital Sign Worried About Running Out of Food in the Last Year: Never true Ran Out of Food in the Last Year: Never true Transportation Needs: No Transportation Needs (12/03/2024) PRAPARE - Transportation Lack of Transportation (Medical): No Lack of Transportation (Non-Medical): No Physical Activity: Not on file Stress: Not on file Social Connections: Not on file Intimate Partner Violence: Not At Risk (12/03/2024) Humiliation, Afraid, Rape, and Kick questionnaire Fear of Current or Ex-Partner: No Emotionally Abused: No Physically Abused: No Sexually Abused: No Housing Stability: Low Risk (12/03/2024) Housing Stability Vital Sign Unable to Pay for Housing in the Last Year: No Number of Times Moved in the Last Year: 1 Homeless in the Last Year: No Family History: Family History[2] Medications Reconciliation: Medications were reviewed in chart but unable to verify accurate with patient Allergies: Allergies[3] REVIEW OF SYSTEMS: 10 point ROS obtained, as per HPI, otherwise NEG Vitals: BP (!) 155/92 Pulse 107 Temp 36.8 C (98.2 F) (Temporal) Resp 18 SpO2 98% BMI Classification: Pt Weigth last reported as 200lb. Pt height not recorded Pulse Ox: SpO2 Av.3 % Min: 95 % Max: 100 % Supplemental O2: PHYSICAL EXAM: Physical Exam Constitutional: General: She is awake. HENT: Head: Normocephalic and atraumatic. Eyes: General: Vision grossly intact. Gaze aligned appropriately. Extraocular Movements: Extraocular movements intact. Cardiovascular: Rate and Rhythm: Normal rate. Rhythm irregularly irregular. Pulmonary: Effort: Pulmonary effort is normal. Skin: General: Skin is warm and dry. Neurological: General: No focal deficit present. Mental Status: She is alert and oriented to person, place, and time. Cranial Nerves: Cranial nerves 2-12 are intact. Psychiatric: Behavior: Behavior is cooperative. DATA: CBC: Recent Labs 03/12/25 1630 WBC 10.6 RBC 4.28 HGB 12.9 HCT 39.8 MCV 93.0 RDW 14.8 PLT 389 BMP: Recent Labs 03/12/25 1630 NA 136 K 5.4* CL 106 CO2 18* BUN 45* CREATININE 1.46* GLUCOSE 167* CALCIUM 9.8 ANIONGAP 12 LIVER PROFILE:No results for input(s): "AST", "ALT", "BILITOT", "ALKPHOS", "PROT" in the last 72 hours. No lab exists for component: "LABALBU" PT/INR: No results for input(s): "PROTIME", "INR" in the last 72 hours. CARDIAC ENZYMES: No results for input(s): "TROPONINI" in the last 72 hours. Procalcitonin: No results found for: "PROCAL" Urine Culture: Results for orders placed or performed during the hospital encounter of 01/25/25 Urine culture Collection Time: 01/26/25 12:22 PM Specimen: Urine, Clean Catch Result Value Ref Range Urine Culture Normal urogenital fabio present COVID-19 PCR: No results for input(s): "COVID19" in the last 72 hours. I reviewed: [x] laboratory results [x] radiographic results At the time of today's encounter. Pt was advised of the results. Data: Assessment Discussed management with the ED provider and agree with hospitalization. Acute, acute on chronic, unstable/uncontrolled chronic problems/diagnoses: Atrial fibrillation with RVR - Patient on telemetry, continue to monitor - Patient reports being off atenolol for at least the past month -Will check a.m. TSH - As needed IV metoprolol - Echocardiogram in a.m. - Cardiology consult for a.m. assessment, determination to continue rate controlling medication - Continue Eliquis 5 mg 2. Reported concern for hyperkalemia - Telemetry - Recheck levels in a.m. 3. Acute kidney injury - Patient is aware that she has had decreasing renal function - Possible why was taken off atenolol (?) - Hold patient's metformin, renally excreted medications - Recheck labs in a.m. Stable chronic problems affecting care, new non-acute diagnoses: Hyperlipidemia 2. Hypertension 3. Hypothyroidism - Check a.m. TSH - Levothyroxine 112 mcg 4. Diabetes mellitus with neuropathy -PDMP reviewed-gabapentin 300 mg - Continue home diabetic regimen with exception of metformin due to decreased renal function - Check blood glucose q. ACHS with insulin sliding scale coverage - Hypoglycemia protocol in place Plan As a result of the above findings & factors, the following mgmt was pursued: - am labs, replace lytes prn - PT/OT/CM/SW - delirium precautions: increase activity and limit nighttime disturbances - DVT prophylaxis: encourage ambulation and already anticoagulated Complexity: Chronic illness with mild to moderate exacerbation, progression, or side effect of tx (MOD). Multiple stable chronic illnesses (MOD). Risk: Admission to hospital-level care was considered or occurred (HIGH). Advance Directive: Full Code Anticipated Discharge - Date -03/14 - Location - Home Total time spent (which include face to face and non face to face encounters) : 75 minutes. Extended Emergency Contact Information Primary Emergency Contact: Hi Nelson Relation: Son Preferred language: Burmese Metal Bumper needed? No Secondary Emergency Contact: Melba Black [facility] [place] Relation: Daughter Patel Can MD Division of Hospital Medicine Inpatient Medical Services/[facility] [1] Past Surgical History: Procedure Laterality Date BACK SURGERY CHOLECYSTECTOMY [2] Family History Problem Relation Name Age of Onset Diabetes Father Ed Shue Hypertension Father Ed Shue Diabetes Son Hi Nelson Hypertension Son Hi Nelson [3] Allergies Allergen Reactions Tape Rash documented in this [facility]08-01-2025 Emergency department Note* Sebastián Pennington RN - 03/12/2025 6:26 PM EDT This RN notified that pt needs US line. [id number] Physician Emergency department Note* Anastasia Rodriguez MD - 03/12/2025 2:56 PM EDT Emergency Department Encounter [facility] EMERGENCY DEPT Patient: Hanna Nelson : 1940 Date of Evaluation: 03/12/2025 ED Supervising Physician: Anastasia Rodriguez MD I personally evaluated Hanna Nelson and made/approved the management plan and take responsibilityfor the patient management. This will serve as my Supervisory note and shared attestation. I did perform a substantive portion of the visit including all aspects of the Medical Decision Making. I wore appropriate PPE for the entirety of this encounter. In brief, Hanna Nelson is a 84 y.o. that presents to the emergency department for abnormal labs. She was entered by her PCP after getting lab work done and showed a elevated potassium level at 6.1.She states that she feels well. Her family who is with her states that she normally does not have symptoms whenever she has any kind of illness. Does have history of atrial fibrillation. No history of hyperkalemia Focused exam: chronically ill-appearing female no acute distress. Vital signs reviewed and unremarkable. Patient has a tachycardic Rate with irregular rhythm when auscultated. 2+ radial pulses bilaterally. Lung clear to auscultation bilaterally. Brief ED course/MDM: 84-year-old presenting for abnormal labs. Vital signs upon arrival are unremarkable however EKG shows atrial fibrillation with rapid ventricular rate. She does have a history of A-fib. We did labs here in the emergency department gave her IV metoprolol. This did help rate control her. She is given a small bolus of IV fluids as well. Labs done here do show an elevated creatinine which is an NAYELY for her. She is a very mild hyperkalemia 5.4. Otherwise labs are unremarkable however given the NAYELY as well as the rapid ventricular rate patient will be admitted for further care. Diagnostics interpreted by me: EKG I personally discussed the patient's management with other clinicians: All diagnostic, treatment, and disposition decisions were made by myself in conjunction with the RAJENDRA. For all further details of the patient's emergency department visit, please see their documentation. (Comment: Please note this report has been produced using speech recognition software and may contain errors related to that system including errors in grammar, punctuation, and spelling, as well as words and phrases that may be inappropriate. 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 Subjective Patient ID: Hanna Nelson is a 84 y.o. female who presents for Wound Care. HPI: Patient returns to wound healing center for follow-up of ulcer to the bottom of the right foot. Patient is with her family member. They have been dressing the site as instructed with assistance of nursing staff. Patient denies any current feelings of nausea, vomiting, fever, chills. Objective Physical Exam: Open wounds/open I&D site to plantar right foot. Base of the ulcer site is a mixture of adherent slough, fibrin, granular tissue, and surrounding hyperkeratotic skin. No purulence,no malodor, no surrounding or streaking cellulitis, no probing to bone, no tracking, no undermining. Site stable overall over the last week. Assessment/Plan Wound Assessment: Wound/Incision 09/18/24 Diabetic Ulcer Foot Right (Active) Wound Image 03/09/25 1021 Site Assessment Pale;[place];Sloughing 03/09/25 1021 Linda-Wound Assessment Moist 03/09/25 1021 Wound Length (cm) 1.2 cm 03/09/25 1021 Wound Width (cm) 0.7 cm 03/09/25 1021 Wound Surface Area (cm^2) 0.66 cm^2 03/09/25 1021 Wound Depth (cm) 0.2 cm 03/09/25 1021 Wound Volume (cm^3) 0.088 cm^3 03/09/25 1021 Wound Healing % 56 03/09/25 1021 Drainage Description Serosanguineous 03/09/25 1021 Odor None 03/09/25 1021 Drainage Amount Small 03/09/25 1021 Treatments Cleansed 03/09/25 1021 Primary Dressing Collagen 03/02/25 1027 Secondary Dressing 4x4 gauze 03/02/25 1027 Secured with Medfix tape 03/02/25 1027 Dressing Status New dressing;Clean, dry & intact 03/02/25 1027 Undermining 0.4 cm 10/09/24 1200 Undermining Clock Position of Wound 9;10;11;12 10/09/24 1200 Debridement Wound/Incision 09/18/24 Diabetic Ulcer Foot Right Performed by: Jennifer Waldrop DPM Authorized by: Jennifer Waldrop DPM Consent Consent obtained? verbal Consent given by: patient Risks discussed? procedural risks discussed Time out called at 03/09/2025 10:40 AM Immediately prior to the procedure a time out was called and the performing provider verified the correct patient, procedure, equipment, technical support 1 software engineer, and site/side marked as required. Debridement Details Performed by: physician Debridement type: surgical Level of debridement: subcutaneous tissue Pain control: lidocaine 2% Pain control administration type: topical Pre-debridement measurements Length (cm): 1.2 Width (cm): 0.7 Depth (cm): 0.2 Surface Area (cm^2): 0.66 Post-debridement measurements Length (cm): 1.3 Width (cm): 0.8 Depth (cm): 0.4 Percent debrided: 100% Surface Area (cm^2): 0.82 Area Debrided (cm^2): 0.82 Volume (cm^3): 0.22 Tissue and other material debrided: subcutaneous tissue Devitalized tissue debrided: biofilm, callus, fibrin and slough Instrument(s) utilized: blade Bleeding: small Hemostasis obtained with: pressure Procedural pain (0-10): 0 Post-procedural pain: 0 Response to treatment: procedure was tolerated well Patient re-examined. Debridement performed as noted above. Stressed continued importance of offloading the ulcer site at all times. She is to continue to use her AFO offloading brace as recommended. She is to monitor that area along with help from her family of any signs of worsening or signs of infection, and they are to call the wound center or go to the ER if noted. Patient will follow back upat the wound center in 1 week, or sooner if needed for any reason before then. documented in this [facility]07-29-2025 History of Present illness Narrative* Jennifer Waldrop DPM - 03/09/2025 10:15 AM EDTAssociated Order(s): Debridement Post-Procedure Diagnose(s): Charcot's joint of foot, right; Ulcer of right foot with fat layer exposed (HCC); Pes planus of both feet; Diabetic polyneuropathy associated with type 2 diabetes mellitus(HCC); Uncontrolled type 2 diabetes mellitus with hyperglycemia (HCC); 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 Images from the original note were not included. Subjective Patient ID: Hanna Nelson is a 84 y.o. female who presents for Wound Care. HPI: Patient returns to wound healing center for follow-up of ulcer to the bottom of the right foot. Patient is with her family member. They have been dressing the site as instructed with assistance of nursing staff. Patient denies any current feelings of nausea, vomiting, fever, chills. Objective Physical Exam: Open wounds/open I&D site to plantar right foot. Base of the ulcer site is a mixture of adherent slough, fibrin, granular tissue, and surrounding hyperkeratotic skin. No purulence,no malodor, no surrounding or streaking cellulitis, no probing to bone, no tracking, no undermining. Site stable overall over the last week. Assessment/Plan Wound Assessment: Wound/Incision 09/18/24 Diabetic Ulcer Foot Right (Active) Wound Image 03/09/25 1021 Site Assessment Pale;[place];Sloughing 03/09/25 1021 Linda-Wound Assessment Moist 03/09/25 1021 Wound Length (cm) 1.2 cm 03/09/25 1021 Wound Width (cm) 0.7 cm 03/09/25 1021 Wound Surface Area (cm^2) 0.66 cm^2 03/09/25 1021 Wound Depth (cm) 0.2 cm 03/09/25 1021 Wound Volume (cm^3) 0.088 cm^3 03/09/25 1021 Wound Healing % 56 03/09/25 1021 Drainage Description Serosanguineous 03/09/25 1021 Odor None 03/09/25 1021 Drainage Amount Small 03/09/25 1021 Treatments Cleansed 03/09/25 1021 Primary Dressing Collagen 03/02/25 1027 Secondary Dressing 4x4 gauze 03/02/25 1027 Secured with Medfix tape 03/02/25 1027 Dressing Status New dressing;Clean, dry & intact 03/02/25 1027 Undermining 0.4 cm 10/09/24 1200 Undermining Clock Position of Wound 9;10;11;12 10/09/24 1200 Debridement Wound/Incision 09/18/24 Diabetic Ulcer Foot Right Performed by: Jennifer Waldrop DPM Authorized by: Jennifer Waldrop DPM Consent Consent obtained? verbal Consent given by: patient Risks discussed? procedural risks discussed Time out called at 03/09/2025 10:40 AM Immediately prior to the procedure a time out was called and the performing provider verified the correct patient, procedure, equipment, technical support 1 software engineer, and site/side marked as required. Debridement Details Performed by: physician Debridement type: surgical Level of debridement: subcutaneous tissue Pain control: lidocaine 2% Pain control administration type: topical Pre-debridement measurements Length (cm): 1.2 Width (cm): 0.7 Depth (cm): 0.2 Surface Area (cm^2): 0.66 Post-debridement measurements Length (cm): 1.3 Width (cm): 0.8 Depth (cm): 0.4 Percent debrided: 100% Surface Area (cm^2): 0.82 Area Debrided (cm^2): 0.82 Volume (cm^3): 0.22 Tissue and other material debrided: subcutaneous tissue Devitalized tissue debrided: biofilm, callus, fibrin and slough Instrument(s) utilized: blade Bleeding: small Hemostasis obtained with: pressure Procedural pain (0-10): 0 Post-procedural pain: 0 Response to treatment: procedure was tolerated well Patient re-examined. Debridement performed as noted above. Stressed continued importance of offloading the ulcer site at all times. She is to continue to use her AFO offloading brace as recommended. She is to monitor that area along with help from her family of any signs of worsening or signs of infection, and they are to call the wound center or go to the ER if noted. Patient will follow back upat the wound center in 1 week, or sooner if needed for any reason before then. documented in this [facility]07-29-2025 Hospital Discharge instructions* Patient Instructions* Liss Acevedo RN - 03/09/2025 10:15 AM EDT Follow-up Appointments: Return Appointment in 1 week. Call [place] wound [facility] at [phone], [facility] at [phone], or [facility] at [phone]. Edema/Swelling: Avoid standing for long periods of time, elevate legs to the level of the heart or above 30 minutesdaily and/or when sitting. Offloading: Avoid pressure to wound site as often as possible. ANY AMOUNT OF PRESSURE WILL DELAY WOUND HEALING. Offloading wound site is extremely important to assist in wound healing. Avoid friction and shearing, do not scoot or slide. Lift your weight up when repositioning. Bathing/Showering: OK to shower but do not soak or submerge wound. Use an antibacterial soap, such as dial to cleanse wound area once the rest of the body has been washed. Nutrition: Follow diet per physician instructions such as increasing protein intake to promote wound healing 100 gram of protein a day If diabetic-Monitor blood sugars to help with wound healing. High blood sugars can affect wound healing. Wound Care: R Plantar foot (x3 weekly) No offloading pad Cleanse wound with mild soap and water and pat dry Apply Collagen to wound bed Gauze Apply Medifix tape Signs and symptoms of wound infection: - fever - flu-like symptoms - pus or unusual drainage - foul odor - worsening of wound - spreading redness or warmth around the wound - increased pain - increasing and/or uncontrolled blood sugar for diabetics Please call the wound center at [phone] if you are experiencing this. If we are closed and youare unable to reach us in person please go to the ER documented in this [facility]07-29-2025 Hospital Discharge instructions* Patient Instructions* Liss Acevedo RN - 03/09/2025 10:15 AM EDT Follow-up Appointments: Return Appointment in 1 week. Call [place] [facility] center at [phone], [facility] at [phone], or [facility] at [phone]. Edema/Swelling: Avoid standing for long periods of time, elevate legs to the level of the heart or above 30 minutesdaily and/or when sitting. Offloading: Avoid pressure to wound site as often as possible. ANY AMOUNT OF PRESSURE WILL DELAY WOUND HEALING. Offloading wound site is extremely important to assist in wound healing. Avoid friction and shearing, do not scoot or slide. Lift your weight up when repositioning. Bathing/Showering: OK to shower but do not soak or submerge wound. Use an antibacterial soap, such as dial to cleanse wound area once the rest of the body has been washed. Nutrition: Follow diet per physician instructions such as increasing protein intake to promote wound healing 100 gram of protein a day If diabetic-Monitor blood sugars to help with wound healing. High blood sugars can affect wound healing. Wound Care: R Plantar foot (x3 weekly) No offloading pad Cleanse wound with mild soap and water and pat dry Apply Collagen to wound bed Gauze Apply Medifix tape Signs and symptoms of wound infection: - fever - flu-like symptoms - pus or unusual drainage - foul odor - worsening of wound - spreading redness or warmth around the wound - increased pain - increasing and/or uncontrolled blood sugar for diabetics Please call the wound center at [phone] if you are experiencing this. If we are closed and youare unable to reach us in person please go to the ER documented in this [facility]07-22-2025 History of Present illness Narrative* Jennifer Waldrop, DPM - 03/02/2025 10:15 AM EDTAssociated Order(s): Debridement Post-Procedure Diagnose(s): Charcot's joint of foot, right; Ulcer of right foot with fat layer exposed (HCC); Pes planus of both feet; Diabetic polyneuropathy associated with type 2 diabetes mellitus(HCC); Uncontrolled type 2 diabetes mellitus with hyperglycemia (HCC); 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 Images from the original note were not included. Subjective Patient ID: Hanna Nelson is a 84 y.o. female who presents for Wound Care. HPI: Patient returns to wound healing center for follow-up of ulcer to the bottom of the right foot. Patient is with her family member. They report the patient had another uti and is currently takinga course of bactrim. They have been dressing the site as instructed. Patient denies any current feelings of nausea, vomiting, fever, chills. Objective Physical Exam: Open wounds/open I&D site to plantar right foot. Base of the ulcer site is a mixture of adherent slough, fibrin, granular tissue, and surrounding hyperkeratotic skin. No purulence,no malodor, no surrounding or streaking cellulitis, no probing to bone, no tracking, no undermining. Assessment/Plan Wound Assessment: Wound/Incision 09/18/24 Diabetic Ulcer Foot Right (Active) Wound Image 03/02/25 1027 Site Assessment Red;Sloughing 03/02/25 1027 Linda-Wound Assessment Intact 03/02/25 1027 Wound Length (cm) 1.3 cm 03/02/25 1027 Wound Width (cm) 0.5 cm 03/02/25 1027 Wound Surface Area (cm^2) 0.51 cm^2 03/02/25 1027 Wound Depth (cm) 0.2 cm 03/02/25 1027 Wound Volume (cm^3) 0.068 cm^3 03/02/25 1027 Wound Healing % 66 03/02/25 1027 Drainage Description Serosanguineous 03/02/25 1027 Odor None 03/02/25 1027 Drainage Amount Small 03/02/25 1027 Treatments Cleansed 03/02/25 1027 Primary Dressing Collagen 02/23/25 1041 Secondary Dressing 4x4 gauze 02/23/25 1041 Secured with Medfix tape 02/23/25 1041 Dressing Status New dressing 02/23/25 1041 Undermining 0.4 cm 10/09/24 1200 Undermining Clock Position of Wound 9;10;11;12 10/09/24 1200 Debridement Wound/Incision 09/18/24 Diabetic Ulcer Foot Right Performed by: Jennifer Waldrop DPM Authorized by: Jennifer Waldrop DPM Consent Consent obtained? verbal Consent given by: patient Risks discussed? procedural risks discussed Time out called at 03/02/2025 10:43 AM Immediately prior to the procedure a time out was called and the performing provider verified the correct patient, procedure, equipment, technical support 1 software engineer, and site/side marked as required. Debridement Details Performed by: physician Debridement type: surgical Level of debridement: subcutaneous tissue Pain control: lidocaine 2% Pain control administration type: topical Pre-debridement measurements Length (cm): 1.3 Width (cm): 0.5 Depth (cm): 0.2 Surface Area (cm^2): 0.51 Post-debridement measurements Length (cm): 1.4 Width (cm): 0.6 Depth (cm): 0.4 Percent debrided: 100% Surface Area (cm^2): 0.66 Area Debrided (cm^2): 0.66 Volume (cm^3): 0.18 Tissue and other material debrided: subcutaneous tissue Devitalized tissue debrided: biofilm, callus, fibrin and slough Instrument(s) utilized: curette Bleeding: small Hemostasis obtained with: pressure Procedural pain (0-10): 0 Post-procedural pain: 0 Response to treatment: procedure was tolerated well Patient re-examined. Debridement performed as noted above. Stressed continued importance of offloading the ulcer site at all times. She is to continue to use her AFO offloading brace as recommended. She is to monitor that area along with help from her family of any signs of worsening or signs of infection, and they are to call the wound center or go to the ER if noted. Patient will follow back upat the wound center in 1 week, or sooner if needed for any reason before then. documented in this [facility]07-22-2025 Hospital Discharge instructions* Patient Instructions* Priscila Rodriguez - 03/02/2025 10:15 AM EDT Follow-up Appointments: Return Appointment in 1 week. Call [place] [facility] center at [phone], [facility] at [phone], or [facility] at [phone]. Edema/Swelling: Avoid standing for long periods of time, elevate legs to the level of the heart or above 30 minutesdaily and/or when sitting. Offloading: Avoid pressure to wound site as often as possible. ANY AMOUNT OF PRESSURE WILL DELAY WOUND HEALING. Offloading wound site is extremely important to assist in wound healing. Avoid friction and shearing, do not scoot or slide. Lift your weight up when repositioning. Bathing/Showering: OK to shower but do not soak or submerge wound. Use an antibacterial soap, such as dial to cleanse wound area once the rest of the body has been washed. Nutrition: Follow diet per physician instructions such as increasing protein intake to promote wound healing 100 gram of protein a day If diabetic-Monitor blood sugars to help with wound healing. High blood sugars can affect wound healing. Wound Care: R Plantar foot (x3 weekly) No offloading pad this week Cleanse wound with mild soap and water and pat dry Apply Collagen to wound bed Gauze Apply Medifix tape Signs and symptoms of wound infection: - fever - flu-like symptoms - pus or unusual drainage - foul odor - worsening of wound - spreading redness or warmth around the wound - increased pain - increasing and/or uncontrolled blood sugar for diabetics Please call the wound center at [phone] if you are experiencing this. If we are closed and youare unable to reach us in person please go to the ER documented in this [facility]07-15-2025 History of Present illness Narrative* Jennifer Waldrop, DPM - 02/23/2025 10:15 AM EDTAssociated Order(s): Debridement Post-Procedure Diagnose(s): Charcot's joint of foot, right; Ulcer of right foot with fat layer exposed (HCC); Pes planus of both feet; Diabetic polyneuropathy associated with type 2 diabetes mellitus(HCC); Uncontrolled type 2 diabetes mellitus with hyperglycemia (HCC); 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 Images from the original note were not included. Subjective Patient ID: Hanna Nelson is a 84 y.o. female who presents for Wound Care. HPI: Patient returns to wound healing center for follow-up of ulcer to the bottom of the right foot. Patient is with her son today. They report that on January 25 the patient was admitted to the hospital for cellulitis of the right foot. They relate that the patient underwent a bedside I&D under the direction of orthopedics. Following her hospital stay she has been having the site dressed while staying at a rehab facility/snf. The patient and her son feel improvement is being made. They deny any current signs of infection to the area. Patient denies any current feelings of nausea, vomiting, fever, chills. Objective Physical Exam: Open wounds/open I&D site to plantar right foot. Base of the ulcer site is a mixture of adherent slough, fibrin, granular tissue, and surrounding hyperkeratotic skin. No purulence,no malodor, no surrounding or streaking cellulitis, no probing to bone, no tracking, no undermining. Assessment/Plan Wound Assessment: Wound/Incision 09/18/24 Diabetic Ulcer Foot Right (Active) Wound Image 02/23/25 1041 Site Assessment Pale;[place];Red;Sloughing 02/23/25 1041 Linda-Wound Assessment Moist 02/23/25 1041 Wound Length (cm) 1.2 cm 02/23/25 1041 Wound Width (cm) 0.5 cm 02/23/25 1041 Wound Surface Area (cm^2) 0.47 cm^2 02/23/25 1041 Wound Depth (cm) 0.2 cm 02/23/25 1041 Wound Volume (cm^3) 0.063 cm^3 02/23/25 1041 Wound Healing % 69 02/23/25 1041 Drainage Description Serosanguineous 02/23/25 1041 Odor None 02/23/25 1041 Drainage Amount Moderate 02/23/25 1041 Treatments Cleansed 02/23/25 1041 Primary Dressing Collagen;Xeroform 01/12/25 0947 Secondary Dressing Silicone foam borders (multiple sizes) 01/12/25 0947 Secured with Medfix tape 12/11/24 1256 Dressing Status New dressing 01/12/25 0947 Undermining 0.4 cm 10/09/24 1200 Undermining Clock Position of Wound 9;10;11;12 10/09/24 1200 Debridement Wound/Incision 09/18/24 Diabetic Ulcer Foot Right Performed by: Jennifer Waldrop DPM Authorized by: Jennifer Waldrop DPM Consent Consent obtained? verbal Consent given by: patient Risks discussed? procedural risks discussed Time out called at 02/23/2025 11:00 AM Immediately prior to the procedure a time out was called and the performing provider verified the correct patient, procedure, equipment, technical support 1 software engineer, and site/side marked as required. Debridement Details Performed by: physician Debridement type: surgical Level of debridement: subcutaneous tissue Pain control: lidocaine 2% Pain control administration type: topical Pre-debridement measurements Length (cm): 1.2 Width (cm): 0.5 Depth (cm): 0.2 Surface Area (cm^2): 0.47 Post-debridement measurements Length (cm): 1.3 Width (cm): 0.6 Depth (cm): 0.5 Percent debrided: 100% Surface Area (cm^2): 0.61 Area Debrided (cm^2): 0.61 Volume (cm^3): 0.2 Tissue and other material debrided: subcutaneous tissue Devitalized tissue debrided: biofilm, callus, fibrin and slough Instrument(s) utilized: curette Bleeding: small Hemostasis obtained with: pressure Procedural pain (0-10): 0 Post-procedural pain: 0 Response to treatment: procedure was tolerated well Patient re-examined. Debridement performed as noted above. Stressed continued importance of offloading the ulcer site at all times. She is to continue to use her AFO offloading brace as recommended. She is to monitor that area along with help from her family of any signs of worsening or signs of infection, and they are to call the wound center or go to the ER if noted. Patient will follow back upat the wound center in 1 week, or sooner if needed for any reason before then. Patient had an MRI completed when in the hospital and was read by the radiologist as showing no signs of deep abscess or osteomyelitis to the foot. Other notes and study results were reviewed from patient's most recent hospital stay. * Liss Acevedo RN - 02/23/2025 10:15 AM EDT Assessments Nursing Assessment/Reassessment Score (check box all that apply) General Physical Exam 20 [x] Comprehensive Assessment (history, ROS, Risk Assessments, wound hx, etc) 25 [x] Wound and skin Assessment/Reassessment Dermatologic / Skin Assessment (not related to wound area) 10 [] Ostomy and/or Continence Assessment & Care Incontinence Assessment and Management 10 [] Ostomy Care Assessment and Management (repouching, etc) 20 [] Process Coordination of Care Simple Patient/Family Education for ongoing care 15 [x] Complex (extensive) Patient/Family Education for ongoing of care 20 [] Staff obtains Consent, Records, Test Results/Process Orders 10 [x] Staff telephones [facility], Nursing Homes/Clarify Orders 10 [x] Routine Transfer to another Facility (non-emergent condition) 10 [] Routine Hospital Admission (non-emergent condition) 10 [] New Admissions/Insurance Auth/Ordering NPWT, skin substitute, etc. 15 [x] Emergency Hospital Admission (emergent condition) 20 [] Special Needs Pediatric / Minor Patient Management 10 [] Isolation Patient Management 10 [] Hearing/Language/Visual Special Needs 15 [] Assessment of Community Assistance (transportation, discharge planning) 15 [] Additional Assistance / Altered Mentation 15 [] Support Surface Assessment (bed, cushion, seat) 15 [] Interventions Miscellaneous External Ear Exam 5 [] Patient Transfer (multiple staff/Man lift) 10 [] Simple Staple/Suture Removal (25 or less) 5 [] Complex Staple/Suture Removal (26 or more) 10 [] Hypo/Hyperglycemic Management 10 [] Ankle/Brachial Index (RIKA) 15 [] Total Points - Use to Determine Level of Clinic Visit 95 Points Larsen: Level 1 (1-35 Points) Level 2 (40-75 Points) Level 3 (80-115 Points) Level 4 (120-155 Points) Level 5 (160 or more Points) documented in this [facility]07-15-2025 Hospital Discharge instructions* Patient Instructions* Liss Acevedo RN - 02/23/2025 10:15 AM EDT Follow-up Appointments: Return Appointment in 1 week. Call [place] [facility] at [phone], [facility] at [phone], or [facility] at [phone]. Edema/Swelling: Avoid standing for long periods of time, elevate legs to the level of the heart or above 30 minutesdaily and/or when sitting. Offloading: Avoid pressure to wound site as often as possible. ANY AMOUNT OF PRESSURE WILL DELAY WOUND HEALING. Offloading wound site is extremely important to assist in wound healing. Avoid friction and shearing, do not scoot or slide. Lift your weight up when repositioning. Bathing/Showering: OK to shower but do not soak or submerge wound. Use an antibacterial soap, such as dial to cleanse wound area once the rest of the body has been washed. Nutrition: Follow diet per physician instructions such as increasing protein intake to promote wound healing 100 gram of protein a day If diabetic-Monitor blood sugars to help with wound healing. High blood sugars can affect wound healing. Wound Care: R Plantar foot (x3 weekly) Keep offloading pad on Cleanse wound with mild soap and water and pat dry Apply Collagen to wound bed Gauze Apply Medifix tape Signs and symptoms of wound infection: - fever - flu-like symptoms - pus or unusual drainage - foul odor - worsening of wound - spreading redness or warmth around the wound - increased pain - increasing and/or uncontrolled blood sugar for diabetics Please call the wound center at [phone] if you are experiencing this. If we are closed and youare unable to reach us in person please go to the ER documented in this [place] [id number] Miscellaneous Notes* Addendum Note - Liss Acevedo RN - 02/23/2025 10:15 AM EDTEncounter addended by: Liss Acevedo RN on: 02/23/2025 11:59 AM Actions taken: Order list changed, Diagnosis association updated documented in this [place] [id number] Note* Addendum Note - Liss Acevedo RN - 02/23/2025 10:15 AM EDTEncounter addended by: Liss Acevedo RN on: 02/23/2025 11:59 AM Actions taken: Order list changed, Diagnosis association updated [id number] Note* Addendum Note - Liss Acevedo RN - 02/23/2025 10:15 AM EDTEncounter addended by: Liss Acevedo RN on: 02/23/2025 11:59 AM Actions taken: Order list changed, Diagnosis association updated [id number] Note* Addendum Note - Liss Acevedo RN - 02/23/2025 10:15 AM EDTEncounter addended by: Liss Acevedo RN on: 02/23/2025 11:59 AM Actions taken: Order list changed, Diagnosis association updated [id number] Note* Addendum Note - Liss Acevedo RN - 02/23/2025 10:15 AM EDTEncounter addended by: Liss Acevedo RN on: 02/23/2025 11:59 AM Actions taken: Order list changed, Diagnosis association updated [id number] [facility]* Addendum Note - Liss Acevedo RN - 02/23/2025 10:15 AM EDTEncounter addended by: Liss Acevedo RN on: 02/23/2025 11:59 AM Actions taken: Order list changed, Diagnosis association updated [id number] Note* Addendum Note - Liss Acevedo RN - 02/23/2025 10:15 AM EDTEncounter addended by: Liss Acevedo RN on: 02/23/2025 11:59 AM Actions taken: Order list changed, Diagnosis association updated [id number] History of Present illness Narrative* Roxy Aguilar MD - 02/02/2025 2:25 PM EDT Patient was discharged to care home facility on 02/01/2025 by my colleague. Chart reviewed, labs imaging and vital signs reviewed. Patient remains medically stable for discharge, no changes to discharge medical regimen, please refer to discharge summary dated 02/01/2025 for discharge details. Labs imaging and vital signs reviewed. Acute, acute on chronic, unstable/uncontrolled chronic problems/diagnoses: Severe Sepsis secondary to diabetic foot wound Demand ischemia without an acute MO NAYELY on CKD stage II-baseline creatinine of 1.04-1.2 A-fib with RVR Type 2 diabetes with hyperglycemia Stable chronic problems affecting care, new non-acute diagnoses: Hypertension Hypothyroidism Plan: No changes to acute medical regimen today besides adding p.o. potassium. Patient remains medically stable for discharge to care home facility and facility is all set up and authorization obtained. Transportation set up for discharge. Nonbillable encounter. * Jennifer Valdez, PT - 02/02/2025 2:00 PM EDT Images from the original note were not included. PHYSICAL THERAPY [facility] Treatment Note Name/MRN: Hanna Nelson ([id number]) Date of : 1940 Age: 84 y.o. Room/Bed: W5-543/W5-543 B Discharge Recommendation: [facility] Facility Equipment Needed: (tbd) Pt denies falls in the past 6 months. Use of walker for mobility. Pt performs ADLs independently. Sponge bathes. Prior Level of Function Prior Level of ADL Function: Independent Prior Level of Mobility: Independent; Device: Front wheeled walker Prior Level of Transfers: Independent Assessment The pt is making limited progress towards her goals and will continue to benefit from therapy for their functional deficits and to improve her overall functional capacity. She is a fall risk and currently unsafe to return home. SNF is recommended at discharge. She was not able to achieve a standingposition while maintaining RLE NWB. No dizziness or lightheadedness was reported. The pt reported an increased level of apprehension regarding a fear of falling while attempting to perform a sit to stand transfer. Subjective Pt in bed and agreed to PT. Pain: Pt denies any current pain. Medical Precautions: No active isolations Proper PPE donned/doffed in accordance with facility standards. Fall Risk: Proctor Fall Risk Score: 55 (Low Risk) Proctor Fall Risk Score: 55 (High Risk) Precautions/Restrictions: Right LE Weight Bearing: Non-Weight Bearing Overall Cognitive Status: Exceptions - Memory: decreased recall of precautions Overall Orientation Status: Oriented x4 Family/Caregiver Present: none Objective Bed Mobility Supine to sit: SBA Sit to supine: SBA Scooting: Max Assist, to HOB HOB Elevated Use of bed rail(s) Transfers/Mobility Sit to stand transfer attempted 3 trials with a FWW and therapist. Pt was not able to achieve a standing position this session. Pt was not able to maintain RLE NWB while attempting to elevate hips from EOB. Pt expressed an increased fear of falling. Balance During Session: Posture: fair Sitting - Static: Modified Independent Sitting - Dynamic: SBA Pt sat EOB with and without UE support. Plan Continue acute PT per plan of care. Safety/Education Safety Safety Devices in place: call light within reach, left in bed, and no alarms engaged upon entry Restraints: No Education Education Given To: patient Education Provided: PT Role, Plan of Care, Precautions, and Transfer Training Education Method: Verbal Barriers to Learning: None Education Outcome: Verbalized Understanding and Continued Education Needed Outcome Measures AM-PAC AM-PAC Inpatient Mobility Raw Score (No Stairs) : 9 JH-HLM JH-HLM Score: Sat at edge of bed Goals Patient Stated Goal: to get stronger Encounter Problems Encounter Problems (Active) Balance Patient will maintain static standing balance for 2 minutes with SBA in order to demonstrate decreased risk of falling. (Not Addressed) Start: 01/28/25 Expected End: 02/11/25 Exercise Patient will complete lower extremity exercises for 1 sets / 15 reps in order to improve strength and activity tolerance for mobility. (Not Addressed) Start: 01/28/25 Expected End: 02/11/25 Mobility Patient will ambulate 10ft feet with min assist, NWB RLE, and rolling walker in order to improve safety and independence with mobility. (Not Addressed) Start: 01/28/25 Expected End: 02/11/25 Transfers Patient will perform bed mobility with SBA in order to improve independence and prepare for out of bed mobility. (Progressing) Start: 01/28/25 Expected End: 02/11/25 Patient will complete functional transfer with least restrictive device with min assist and NWB RLEin order to prepare for ambulation. (Not Progressing) Start: 01/28/25 Expected End: 02/11/25 Therapy Time Individual Co-treatment Time In 0945 Time Out 0954 Minutes 9 Timed Code Treatment Minutes: 9 Minutes (one FA) Jennifer Valdez PT * Katey Beard MD - 02/01/2025 10:17 AM EDT Hospitalist Progress Note 02/01/2025 Subjective: Admit Date: 01/25/2025 PCP: Dorothy Medrano Room#: W5-543/W5-543 B BRIEF HOSPITAL COURSE: 84-year-old patient with history of DM2 with neuropathy, HTN, hyperlipidemia, AFib on Eliquis, hypothyroidism, and obesity presented to [facility] on January [facility] with: Generalized malaise, elevated blood pressure reading, tachycardia and elevated blood glucose. Last hospital stay at [facility] on December 02, 2024, treated for acute metabolic encephalopathy and Klebsiella UTI. Son reported patient was welluntil few days prior. Right foot ulcer was healing, but missed last wound care appointment, last one was [facility] [employer]. While admitted, orthopedic surgery did bedside I&D 01/26. lactic acid 2.6-1.8 after treatment, WBC 27 improved to 19.4.BLE duplex ultrasound: WNL. BLE PVRs: WNL Right femur x-ray (01/27/2025): Patient is status post long right femur cephalomedullary nail. Thereare moderate-severe degenerative changes of the right knee. There is no evidence of loosening or failure. MRI right foot no concern for osteomyelitis MRI Right Hip (01/28/25): No acute fractures. Study limited by previous right hip CMN. There is significant artifact from the CMN. There is no obvious fluid collections, no enhancement within the femur, or rim-enhancing fluid collections concerning for abscess. No obvious myositis soft tissue edemaconcerning for cellulitis. Dispo planning discussed with son 01/30, like to go home with home health as well as home PT and OT.Will coordinate with family after the weekend to ensure that they have resources of the need especially for wound dressings. 02/01 awaiting decision for SNF selection Interval History: No acute events overnight. States that her and family did get a list already to start working on SNF placement. Requesting that son and daughter be updated as they will likely make the decisions given patient herself only recently moved up from [place] and is not quite familiar with the area yet. Adult diet Regular; 4 carb choices (60 gm/meal) 24HR INTAKE/OUTPUT: Intake/Output Summary (Last 24 hours) at 02/01/2025 1018 Last data filed at 02/01/2025 0900 Gross per 24 hour Intake 1100 ml Output 400 ml Net 700 ml Past Medical History: Medical History[1] LABS: CBC: Recent Labs 01/31/25 1336 WBC 8.3 RBC 3.78* HGB 11.4* HCT 34.7* MCV 91.8 RDW 14.1 PLT 283 BMP: Recent Labs 01/31/25 1043 NA 139 K 3.7 CL 107 CO2 20* BUN 27* CREATININE 1.04 GLUCOSE 205* CALCIUM 9.4 ANIONGAP 12 LIVER PROFILE:No results for input(s): "AST", "ALT", "BILITOT", "ALKPHOS", "PROT" in the last 72 hours. No lab exists for component: "LABALBU" PT/INR: No results for input(s): "PROTIME", "INR" in the last 72 hours. CARDIAC ENZYMES: No results for input(s): "TROPONINI" in the last 72 hours. Procalcitonin: No results found for: "PROCAL" COVID-19 PCR: No results for input(s): "COVID19" in the last 72 hours. Objective: Vitals: BP 153/93 (BP Location: Left arm, Patient Position: Lying) Pulse 77 Temp 36.2 C (97.2 F) (Temporal) Resp 16 Ht 5' 10" (1.778 m) Wt 215 lb 4.8 oz (97.7 kg) SpO2 96% BMI 30.89 kg/m Pulse Ox: SpO2 Av.1 % Min: 95 % Max: 97 % Supplemental O2: Physical Exam Vitals reviewed. Constitutional: General: She is not in acute distress. Appearance: Normal appearance. She is not ill-appearing or toxic-appearing. HENT: Head: Normocephalic. Cardiovascular: Rate and Rhythm: Normal rate. Pulmonary: Effort: Pulmonary effort is normal. No respiratory distress. Musculoskeletal: General: No deformity. Comments: Right foot in clean dry and intact dressing Neurological: Mental Status: She is alert. Psychiatric: Mood and Affect: Mood normal. Behavior: Behavior normal. Thought Content: Thought content normal. Judgment: Judgment normal. Medications: Scheduled PRN Scheduled Meds[2] PRN Meds[3] Continuous Continuous Meds[4] Assessment Data: (LOW: 2x CAT1 or independent historian MOD: 3x CAT1 or 1x CAT3 EXTENSIVE: 3x CAT1 and 1x CAT3) Acute, acute on chronic, unstable/uncontrolled chronic problems/diagnoses: Severe Sepsis secondary to diabetic foot wound Demand ischemia without an acute MO NAYELY on CKD stage II-baseline creatinine of 1.04-1.2 A-fib with RVR Type 2 diabetes with hyperglycemia Stable chronic problems affecting care, new non-acute diagnoses: Hypertension Hypothyroidism Plan As a result of the above findings & factors, the following mgmt was pursued: Severe Sepsis secondary to diabetic foot wound Demand ischemia without an acute MO - For diabetic foot infection, patient currently doing well. Down to Unasyn we will be switching her to amoxicillin clavulanate 875 p.o. every 12 for duration of her therapy at discharge, end date 02/02 - will likely finish ABX while hospitalized -Orthopedic surgery has since signed off, patient has been resumed on her DOAC Debility - PT, OT recommending SNF, patient family now wanting to get recommendations for care home facility. Discussed with case management to get them list. NAYELY on CKD stage II-baseline creatinine of 1.04-1.2 - Improved, patient back to baseline A-fib with RVR -Patient back on her home DOAC and her atenolol Type 2 diabetes with hyperglycemia - cont home meds; insulin 32 units nightly for Lantus, 8 units lispro 3 times daily with meals, sliding scale - hypoglycemia protocol - am labs, replace lytes prn - PT/OT/CM/SW - delirium precautions: increase activity - DVT prophylaxis: encourage ambulation and already anticoagulated Complexity: Chronic illness with severe exacerbation, progression, or side effect of tx (HIGH). Risk: Admission to hospital-level care was considered or occurred (HIGH). Consult to surgery for emergency major surgery, or major surgery with identified patient or procedural risk factors, was considered or occurred (HIGH). Advance Directive: Full Code Anticipated Discharge - Date -medically stable, awaiting SNF now - Location - SNF - Pending the following -improvement of acute medical issue Total time spent (which include face to face and non face to face encounters) : 40 minutes Toxic drug monitoring/narrow therapeutic index drug monitoring : # Drug name : na # Route administered : NA # Method of monitoring : NA Extended Emergency Contact Information Primary Emergency Contact: Hi Nelson Relation: Son Preferred language: Burmese Metal Bumper needed? No Secondary Emergency Contact: Melba Black [employer] Relation: Daughter Comment: Please note that portions of the note for this encounter were entered using an speech recognition software and may contain errors related to that system including errors in grammar, punctuation, and spelling, as well as words and phrases that may be inappropriate. Best attempts were made to edit/proofread the information prior to note completion. Despite the review of information, some errors may remain. If there are questions related to the information contained within the note pleasecontact the signing provider for clarification. Katey Beard MD Division of Hospitalist Medicine [facility] [1] Past Medical History: Diagnosis Date Atrial fibrillation (HCC) Diabetes mellitus (HCC) Hyperlipidemia Hypertension Hypothyroidism Neuropathy [2] ampicillin-sulbactam, 3,000 mg, IntraVENous, q6h apixaban, 5 mg, Oral, BID atenolol, 25 mg, Oral, BID gabapentin, 300 mg, Oral, BID insulin glargine, 32 Units, SubCUTAneous, Nightly insulin lispro, 0-12 Units, SubCUTAneous, TID WC insulin lispro, 8 Units, SubCUTAneous, TID WC Lactobacillus, 4 tablet, Oral, Daily levothyroxine, 112 mcg, Oral, qAM AC sodium chloride 0.9%, 5-40 mL, IntraVENous, 2 times per day [3] PRN medications: acetaminophen OR acetaminophen, dextrose, dextrose, glucagon (rDNA), glucose, metoprolol, ondansetron ODT OR ondansetron, polyethylene glycol (PEG) 3350, sodium chloride,sodium chloride 0.9% [4] * Ron Dunbar OT - 01/31/2025 2:55 PM EDT Images from the original note were not included. OCCUPATIONAL THERAPY [facility] Initial Evaluation Name/MRN: Hanna Nelson ([id number]) Evaluation Date: 01/31/2025 Date of : 1940 Admission Date: 01/25/2025 10:39 PM Age: 84 y.o. Room[facility]Bed: [facility] B Discharge Recommendation: [facility] Facility Other: Continue to assess Assessment IMPRESSION: Pt presented with Sepsis and bilateral charcot arthropathy a right diabetic non-healingulcer and concomitant cellulitis/abscess upon admission. Per Ortho, pt is NWB RLE. Per pt, she is independent at baseline for ADL's and functional ambulation w/FWW, currently presenting below baseline. Pt is limited by RLE NWB (VC's to maintain) as well as diminished strength, endurance, balance, and safety. Pt is currently CGA-SBA for bed mobility, SBA for sitting balance, and attempted STS x 3 attempts with Max A, pt unsuccessful as pt would quickly state "I can't without putting weight into my R foot" and pt fearful of falling. Pt is Mod-SBA for ADL's. Recommending SNF at discharge as pt is unsafe to return home alone. Pt will continue to benefit from acute OT services while admitted to increase functional independence. Admitting Diagnosis: Sepsis Performance Deficits /Impairments: Decreased Functional Mobility, Decreased ADL status, Decreased Strength, Decreased Safety Awareness, Decreased Endurance, Decreased Balance, Decreased High Level IADLs, and Decreased Posture Prognosis: Fair Decision Making: Medium Complexity Subjective Pt supine in bed upon OT arrival; agreeable to OT eval. Pt initially states she was on bed moyer at beginning of session, but wasn't, pt states "oh, I forgot". Pt supine in bed at end of session with call light within reach and RN notified. Pain: Pt denies any current pain. 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 Fall Risk: Proctor Fall Risk Score: 70 (Low Risk) Proctor Fall Risk Score: 70 (High Risk) Precautions/Restrictions: Right LE Weight Bearing: Non-Weight Bearing Lines/Drains/Airways: PIV, external catheter Family/Caregiver Present: none Overall Cognitive Status: Exceptions - Arousal/alertness: appropriate responses to stimuli - Following commands: follows one step commands with increased time and follows one step commands with repetition - Safety judgement: decreased awareness of need for safety - Problem solving: assistance required to identify errors made and assistance required to correct errors made - Sequencing: requires cues for some Overall Orientation Status: Oriented x4 Social/Functional History Patient admitted from home. Lives With: Alone Type of Home: condo Home Layout: Single Level Home Home Access: Ramped Entrance Bathroom Shower/Tub: pt states she sponges bathes due to fear of falling Toilet: standard Home Equipment: front wheeled walker Homemaking Responsibilities: Independent Receives Help From: None Active Bindery Manager: Yes Prior Level of Function Prior Level of ADL Function: Independent Prior Level of Mobility: Independent; Device: Front wheeled walker Prior Level of Transfers: Independent Objective ADLs LE Dressing: Contact Guard, Pt demonstrates being able to reach B feet sitting EOB in figure four position, pt would require greater assist for standing ADL's. Upper Extremity Assessment AROM: WFL PROM: Not assessed this session Strength: WFL Grossly 4/5 Bed Mobility Supine to sit: Contact Guard Sit to supine: SBA HOB Elevated Transfers/Mobility Sitting balance: SBA Pt is currently SBA for sitting balance EOB, and attempted STS x 3 attempts with Max A, pt unsuccessful as pt would quickly state "I can't without putting weight into my R foot" and pt fearful of falling. Pt would clear buttocks off of bed slight and then abruptly sit down and stop effort due to fear of falling. Reassurance and encouragement provided. Pt requires VC's to maintain precautions. Device(s) used: Front wheeled walker AM-PAC AM-PAC Inpatient Daily Activity Raw Score: 16 ADL Inpatient CMS G-Code Modifier: CK Plan Pt would benefit from skilled acute OT services to address Strengthening, Balance Training, Self-Care/ADL Training, Functional Mobility Training, Endurance Training, Safety Education and Training, and Equipment Evaluation/Education Frequency: 3x/week for 4 weeks Barriers: Impaired balance, Lower extremity weakness, Upper extremity weakness, Decreased endurance, Limited safety awareness, and New weightbearing/ROM restrictions Safety/Education Safety Safety Devices in place: call light within reach, left in bed, gait belt, patient at risk for falls, nurse notified, and no alarms engaged upon entry Restraints: No Education Education Given To: patient Education Provided: OT Role, Plan of Care, Precautions, ADL Adaptive Strategies, Transfer Training,Equipment, Fall Prevention Education, Discharge Recommendations, and Benefits of Increasing Activity Education Method: Verbal Barriers to Learning: questionable cognition Education Outcome: Continued Education Needed Goals Patient Stated Goal: "To get better". Encounter Problems Encounter Problems (Active) Balance Patient will maintain dynamic standing balance for 3-5 minutes with min assist in order to demonstrate decreased risk of falling. Start: 01/31/25 Expected End: 02/28/25 Dressing Upper Extremities Patient will complete upper body dressing with SBA Start: 01/31/25 Expected End: 02/28/25 Grooming Patient will complete daily grooming tasks with supervision Start: 01/31/25 Expected End: 02/28/25 Safety Patient will adhere to RLE NWB precautions during all functional mobility and ADLs in order to demonstrate improved understanding and promote healing. Start: 01/31/25 Expected End: 02/28/25 Toileting Patient will complete toileting tasks at bedside commode with min assist. Start: 01/31/25 Expected End: 02/28/25 Transfers Patient will complete functional transfer with least restrictive device with min assist in order toprepare for ambulation. Start: 01/31/25 Expected End: 02/28/25 Therapy Time Individual Co-Treatment Co-Evaluation Time In 1410 Time Out 1424 Minutes 14 Ron Dunbar OT Patient's Occupational Therapy Plan of Care supervision is transferred to a [facility] Occupational Therapist. Goals and/or treatment plan was established in collaboration with patient/family/other representatives. [1] Past Medical History: Diagnosis Date Atrial fibrillation (HCC) Diabetes mellitus (HCC) Hyperlipidemia Hypertension Hypothyroidism Neuropathy [2] Past Surgical History: Procedure Laterality Date BACK SURGERY CHOLECYSTECTOMY * Katey Beard MD - 01/31/2025 12:02 PM EDT Hospitalist Progress Note 01/31/2025 Subjective: Admit Date: 01/25/2025 PCP: Dorothy Medrano Room#: [id number] B BRIEF HOSPITAL COURSE: 84-year-old patient with history of DM2 with neuropathy, HTN, hyperlipidemia, AFib on Eliquis, hypothyroidism, and obesity presented to [facility] on January 25 with: Generalized malaise, elevated blood pressure reading, tachycardia and elevated blood glucose. Last hospital stay at [facility] on December 02, 2024, treated for acute metabolic encephalopathy and Klebsiella UTI. Son reported patient was welluntil few days prior. Right foot ulcer was healing, but missed last wound care appointment, last one was 2 [facility] [facility]. While admitted, orthopedic surgery did bedside I&D 01/26. lactic acid 2.6-1.8 after treatment, WBC 27 improved to 19.4.BLE duplex ultrasound: WNL. BLE PVRs: WNL Right femur x-ray (01/27/2025): Patient is status post long right femur cephalomedullary nail. Thereare moderate-severe degenerative changes of the right knee. There is no evidence of loosening or failure. MRI right foot no concern for osteomyelitis MRI Right Hip (01/28/25): No acute fractures. Study limited by previous right hip CMN. There is significant artifact from the CMN. There is no obvious fluid collections, no enhancement within the femur, or rim-enhancing fluid collections concerning for abscess. No obvious myositis soft tissue edemaconcerning for cellulitis. Dispo planning discussed with son 01/30, like to go home with home health as well as home PT and OT.Will coordinate with family after the weekend to ensure that they have resources of the need especially for wound dressings. Interval History: No overnight issues. Son would like to go to SNF at this time after reevaluating with family/sister. Patient agreeable as well. Discussed with case management to get them a list. Adult diet Regular; 4 carb choices (60 gm/meal) 24HR INTAKE/OUTPUT: Intake/Output Summary (Last 24 hours) at 01/31/2025 1202 Last data filed at 01/31/2025 0905 Gross per 24 hour Intake 1950 ml Output 850 ml Net 1100 ml Past Medical History: Medical History[1] LABS: CBC: Recent Labs 01/29/25221 WBC 11.7* RBC 3.12* HGB 9.5* HCT 29.2* MCV 93.6 RDW 14.6 PLT 154 BMP: Recent Labs 01/29/252 01/31/25 1043 NA 136 139 K 3.8 3.7 CL 108* 107 CO2 18* 20* BUN 35* 27* CREATININE 1.16* 1.04 GLUCOSE 212* 205* CALCIUM 9.0 9.4 ANIONGAP 10 12 LIVER PROFILE:No results for input(s): "AST", "ALT", "BILITOT", "ALKPHOS", "PROT" in the last 72 hours. No lab exists for component: "LABALBU" PT/INR: No results for input(s): "PROTIME", "INR" in the last 72 hours. CARDIAC ENZYMES: No results for input(s): "TROPONINI" in the last 72 hours. Procalcitonin: No results found for: "PROCAL" COVID-19 PCR: No results for input(s): "COVID19" in the last 72 hours. Objective: Vitals: BP 135/89 (BP Location: Left arm, Patient Position: Sitting) Pulse 76 Temp (!) 35.9 C (96.6 F) (Temporal) Resp 20 Ht 5' 10" (1.778 m) Wt 213 lb (96.6 kg) SpO2 96% BMI 30.56 kg/m Pulse Ox: SpO2 Av.3 % Min: 92 % Max: 96 % Supplemental O2: Physical Exam Vitals reviewed. Constitutional: General: She is not in acute distress. Appearance: Normal appearance. She is not ill-appearing or toxic-appearing. Comments: Son at bedside HENT: Head: Normocephalic. Cardiovascular: Rate and Rhythm: Normal rate. Pulmonary: Effort: Pulmonary effort is normal. No respiratory distress. Musculoskeletal: General: No deformity. Comments: Right foot in clean dry and intact dressing Neurological: Mental Status: She is alert. Psychiatric: Mood and Affect: Mood normal. Behavior: Behavior normal. Thought Content: Thought content normal. Judgment: Judgment normal. Medications: Scheduled PRN Scheduled Meds[2] PRN Meds[3] Continuous Continuous Meds[4] Assessment Data: (LOW: 2x CAT1 or independent historian MOD: 3x CAT1 or 1x CAT3 EXTENSIVE: 3x CAT1 and 1x CAT3) Acute, acute on chronic, unstable/uncontrolled chronic problems/diagnoses: Severe Sepsis secondary to diabetic foot wound Demand ischemia without an acute MO NAYELY on CKD stage II-baseline creatinine of 1.04-1.2 A-fib with RVR Type 2 diabetes with hyperglycemia Stable chronic problems affecting care, new non-acute diagnoses: Hypertension Hypothyroidism Plan As a result of the above findings & factors, the following mgmt was pursued: - For diabetic foot infection, patient currently doing well. Down to Unasyn we will be switching her to amoxicillin clavulanate 875 p.o. every 12 for duration of her therapy at discharge, end date 02/02 -Orthopedic surgery has since signed off, patient has been resumed on her DOAC - PT, OT recommending SNF, patient family now wanting to get recommendations for care home facility. Discussed with case management to get them list. - am labs, replace lytes prn - PT/OT/CM/SW - delirium precautions: increase activity - DVT prophylaxis: encourage ambulation and already anticoagulated Complexity: Chronic illness with severe exacerbation, progression, or side effect of tx (HIGH). Risk: Admission to hospital-level care was considered or occurred (HIGH). Consult to surgery for emergency major surgery, or major surgery with identified patient or procedural risk factors, was considered or occurred (HIGH). Advance Directive: Full Code Anticipated Discharge - Date -medically stable, awaiting SNF now - Location - SNF - Pending the following -improvement of acute medical issue Total time spent (which include face to face and non face to face encounters) : 40 minutes Toxic drug monitoring/narrow therapeutic index drug monitoring : # Drug name : na # Route administered : NA # Method of monitoring : NA Extended Emergency Contact Information Primary Emergency Contact: Hi Nelson Relation: Son Preferred language: Burmese Metal Bumper needed? No Secondary Emergency Contact: Melba [facility] Mobile Relation: Daughter Comment: Please note that portions of the note for this encounter were entered using an speech recognition software and may contain errors related to that system including errors in grammar, punctuation, and spelling, as well as words and phrases that may be inappropriate. Best attempts were made to edit/proofread the information prior to note completion. Despite the review of information, some errors may remain. If there are questions related to the information contained within the note pleasecontact the signing provider for clarification. Katey Beard MD Division of Hospitalist Medicine [employer] [facility] [1] Past Medical History: Diagnosis Date Atrial fibrillation (HCC) Diabetes mellitus (HCC) Hyperlipidemia Hypertension Hypothyroidism Neuropathy [2] ampicillin-sulbactam, 3,000 mg, IntraVENous, q6h apixaban, 5 mg, Oral, BID atenolol, 25 mg, Oral, BID gabapentin, 300 mg, Oral, BID insulin glargine, 32 Units, SubCUTAneous, Nightly insulin lispro, 0-12 Units, SubCUTAneous, TID WC insulin lispro, 8 Units, SubCUTAneous, TID WC Lactobacillus, 4 tablet, Oral, Daily levothyroxine, 112 mcg, Oral, qAM AC sodium chloride 0.9%, 5-40 mL, IntraVENous, 2 times per day [3] PRN medications: acetaminophen OR acetaminophen, dextrose, dextrose, glucagon (rDNA), glucose, metoprolol, ondansetron ODT OR ondansetron, polyethylene glycol (PEG) 3350, sodium chloride,sodium chloride 0.9% [4] * Katey Beard MD - 01/30/2025 2:00 PM EDT Hospitalist Progress Note 01/30/2025 Subjective: Admit Date: 01/25/2025 PCP: Dorothy Medrano Room#: [id number] B BRIEF HOSPITAL COURSE: 84-year-old patient with history of DM2 with neuropathy, HTN, hyperlipidemia, AFib on Eliquis, hypothyroidism, and obesity presented [facility] on January 25 with: Generalized malaise, elevated blood pressure reading, tachycardia and elevated blood glucose. Last hospital stay at [facility] on December 02, 2024, treated for acute metabolic encephalopathy and Klebsiella UTI. Son reported patient was welluntil few days prior. Right foot ulcer was healing, but missed last wound care appointment, last one was 2 [facility] [facility]. While admitted, orthopedic surgery did bedside I&D 01/26. lactic acid 2.6-1.8 after treatment, WBC 27 improved to 19.4.BLE duplex ultrasound: WNL. BLE PVRs: WNL Right femur x-ray (01/27/2025): Patient is status post long right femur cephalomedullary nail. Thereare moderate-severe degenerative changes of the right knee. There is no evidence of loosening or failure. MRI right foot no concern for osteomyelitis MRI Right Hip (01/28/25): No acute fractures. Study limited by previous right hip CMN. There is significant artifact from the CMN. There is no obvious fluid collections, no enhancement within the femur, or rim-enhancing fluid collections concerning for abscess. No obvious myositis soft tissue edemaconcerning for cellulitis. Dispo planning discussed with son 01/30, like to go home with home health as well as home PT and OT.Will coordinate with family after the weekend to ensure that they have resources of the need especially for wound dressings. Interval History: No overnight issues. Case was discussed with patient and son who was on speaker phone. CM notes were also reviewed. Will coordinate for home. Saturday Adult diet Regular; 4 carb choices (60 gm/meal) 24HR INTAKE/OUTPUT: Intake/Output Summary (Last 24 hours) at 01/30/2025 1400 Last data filed at 01/30/2025 0653 Gross per 24 hour Intake 755 ml Output 2250 ml Net -1495 ml Past Medical History: Medical History[1] LABS: CBC: Recent Labs 01/28/25 0018 01/29/25 0222 WBC 17.3* 11.7* RBC 3.52* 3.12* HGB 10.6* 9.5* HCT 33.3* 29.2* MCV 94.6 93.6 RDW 14.8 14.6 PLT 163 154 BMP: Recent Labs 01/28/25 0018 01/29/25221 NA 130* 136 K 4.3 3.8 CL 105 108* CO2 15* 18* BUN 31* 35* CREATININE 1.47* 1.16* GLUCOSE 210* 212* CALCIUM 9.1 9.0 ANIONGAP 10 10 LIVER PROFILE:No results for input(s): "AST", "ALT", "BILITOT", "ALKPHOS", "PROT" in the last 72 hours. No lab exists for component: "LABALBU" PT/INR: No results for input(s): "PROTIME", "INR" in the last 72 hours. CARDIAC ENZYMES: No results for input(s): "TROPONINI" in the last 72 hours. Procalcitonin: No results found for: "PROCAL" COVID-19 PCR: No results for input(s): "COVID19" in the last 72 hours. Objective: Vitals: BP 160/93 (BP Location: Left arm, Patient Position: Sitting) Pulse 73 Temp 36.5 C (97.7F) (Temporal) Resp 16 Ht 5' 10" (1.778 m) Wt 215 lb 4.8 oz (97.7 kg) SpO2 95% BMI 30.89 kg/m Pulse Ox: SpO2 Av.8 % Min: 92 % Max: 95 % Supplemental O2: Physical Exam Vitals reviewed. Constitutional: General: She is not in acute distress. Appearance: Normal appearance. She is not ill-appearing or toxic-appearing. HENT: Head: Normocephalic. Cardiovascular: Rate and Rhythm: Normal rate. Pulmonary: Effort: Pulmonary effort is normal. No respiratory distress. Musculoskeletal: General: No deformity. Neurological: Mental Status: She is alert. Psychiatric: Mood and Affect: Mood normal. Behavior: Behavior normal. Thought Content: Thought content normal. Judgment: Judgment normal. Medications: Scheduled PRN Scheduled Meds[2] PRN Meds[3] Continuous Continuous Meds[4] Assessment Data: (LOW: 2x CAT1 or independent historian MOD: 3x CAT1 or 1x CAT3 EXTENSIVE: 3x CAT1 and 1x CAT3) Acute, acute on chronic, unstable/uncontrolled chronic problems/diagnoses: Severe Sepsis secondary to diabetic foot wound Demand ischemia without an acute MO NAYELY on CKD stage II-baseline creatinine of 1.04-1.2 A-fib with RVR Type 2 diabetes with hyperglycemia Stable chronic problems affecting care, new non-acute diagnoses: Hypertension Hypothyroidism Plan As a result of the above findings & factors, the following mgmt was pursued: - For diabetic foot infection, patient currently doing well. Down to Unasyn we will be switching her to amoxicillin clavulanate 875 p.o. every 12 for duration of her therapy at discharge, end date 02/02 -Orthopedic surgery has since signed off, patient has been resumed on her DOAC - PT, OT recommending SNF, patient wanted to go home - am labs, replace lytes prn - PT/OT/CM/SW - delirium precautions: increase activity - DVT prophylaxis: encourage ambulation and already anticoagulated Complexity: Chronic illness with severe exacerbation, progression, or side effect of tx (HIGH). Risk: Admission to hospital-level care was considered or occurred (HIGH). Consult to surgery for emergency major surgery, or major surgery with identified patient or procedural risk factors, was considered or occurred (HIGH). Advance Directive: Full Code Anticipated Discharge - Date - 02/01 - Location - home with HH - Pending the following -improvement of acute medical issue Total time spent (which include face to face and non face to face encounters) : 50 minutes Toxic drug monitoring/narrow therapeutic index drug monitoring : # Drug name : na # Route administered : NA # Method of monitoring : NA Extended Emergency Contact Information Primary Emergency Contact: Hi Nelson Relation: Son Preferred language: Burmese Metal Bumper needed? No Secondary Emergency Contact: Melba [facility] Mobile Relation: Daughter Comment: Please note that portions of the note for this encounter were entered using an speech recognition software and may contain errors related to that system including errors in grammar, punctuation, and spelling, as well as words and phrases that may be inappropriate. Best attempts were made to edit/proofread the information prior to note completion. Despite the review of information, some errors may remain. If there are questions related to the information contained within the note pleasecontact the signing provider for clarification. Katey Beard MD Division of Hospitalist Medicine [facility] [1] Past Medical History: Diagnosis Date Atrial fibrillation (HCC) Diabetes mellitus (HCC) Hyperlipidemia Hypertension Hypothyroidism Neuropathy [2] ampicillin-sulbactam, 3,000 mg, IntraVENous, q6h apixaban, 5 mg, Oral, BID atenolol, 25 mg, Oral, BID gabapentin, 300 mg, Oral, BID insulin glargine, 32 Units, SubCUTAneous, Nightly insulin lispro, 0-12 Units, SubCUTAneous, TID WC insulin lispro, 8 Units, SubCUTAneous, TID WC Lactobacillus, 4 tablet, Oral, Daily levothyroxine, 112 mcg, Oral, qAM AC sodium chloride 0.9%, 5-40 mL, IntraVENous, 2 times per day [3] PRN medications: acetaminophen OR acetaminophen, dextrose, dextrose, glucagon (rDNA), glucose, metoprolol, ondansetron ODT OR ondansetron, polyethylene glycol (PEG) 3350, sodium chloride,sodium chloride 0.9% [4] * Mario Tellez, RUSSEL - 01/29/2025 3:46 PM EDT Images from the original note were not included. PHYSICAL THERAPY [facility] Treatment Note Name/MRN: Hanna Nelson ([id number]) Date of : 1940 Age: 84 y.o. Room/Bed: W5-543/W5-543 B Discharge Recommendation: [facility] Facility Equipment Needed: No Pt denies alls in the past 6 months. Use of walker for mobility. Pt performs ADLs independently. Sponge bathes. Prior Level of Function Prior Level of ADL Function: Independent Prior Level of Mobility: Independent; Device: Front wheeled walker Prior Level of Transfers: Independent Assessment Pt tolerated treatment session well and is progressing towards goals. Pt demonstrates ability to perform bed mobility with decreased assistance and able to perform sit to stand with Max assist x1-2. Pt continues to requires assistance for mobility. Pt at an increased risk for falls due to impaired b alance and NWB RLE status. Recommend discharge to SNF to improve balance, strength, activity tolerance, and mobility prior to return home. Subjective Pt is supine in bed upon arrival and is agreeable to PT treatment session. RN okayed session. Pain: Pt denies any current pain. Medical Precautions: No active isolations Proper PPE donned/doffed in accordance with facility standards. Fall Risk: Proctor Fall Risk Score: 55 (Low Risk) Proctor Fall Risk Score: 55 (High Risk) Precautions/Restrictions: Right LE Weight Bearing: Non-Weight Bearing Lines/Drains/Airways: PIV, external catheter Overall Cognitive Status: WFL Overall Orientation Status: Oriented x4 Family/Caregiver Present: pt's son present at start of session Objective Bed Mobility Supine to sit: Min Assist Sit to supine: SBA Cues for sequencing with bed mobility including to cross midline with RUE to reach for opposite bedrail to improve performance. Transfers/Mobility Sit to stand: Max Assist Stand to sit: Max Assist Sit to stand x2 reps from elevated EOB to walker. Plus an additional person required to maintain NWB RLE during transfers and when standing with Max assist. Cues for increased trunk extension when standing to improve balance and posture. Standing balance ~10 seconds. Device(s) used: Front wheeled walker Balance During Session: Posture: fair Sitting - Static: SBA Sitting - Dynamic: SBA Standing - Static: Mod Assist, Max Assist Exercises Pt performed BLE exercises sitting EOB to improve strength and activity tolerance. LAQs: 1x15 reps each LE Hip abduction/adduction pillow squeezes 1x15 reps Hip flexion: 1x15 reps each LE Ankle pumps: 1x15 reps Heel raises on LLE: 1x15 reps Cues for proper form Plan Continue acute PT per plan of care. Safety/Education Safety Safety Devices in place: All fall risk precautions in place, call light within reach, left in bed, bed alarm in place, gait belt, nurse notified, and no alarms engaged upon entry Pt with fall risk band noted. Educated pt on use of call light and to have staff assistance for allmobility. Pt verbalized understanding. Restraints: No Education Education Given To: patient Education Provided: PT Role, PT Goals, Plan of Care, Precautions, and Transfer Training Education Method: Verbal Barriers to Learning: None Education Outcome: Verbalized Understanding and Continued Education Needed Outcome Measures AM-PAC AM-PAC Inpatient Mobility Raw Score (No Stairs) : 10 JH-HLM JH-HLM Score: Sat at edge of bed Goals Patient Stated Goal: to go home Encounter Problems Encounter Problems (Active) Balance Patient will maintain static standing balance for 2 minutes with SBA in order to demonstrate decreased risk of falling. (Progressing) Start: 01/28/25 Expected End: 02/11/25 Exercise Patient will complete lower extremity exercises for 1 sets / 15 reps in order to improve strength and activity tolerance for mobility. (Progressing) Start: 01/28/25 Expected End: 02/11/25 Mobility Patient will ambulate 10ft feet with min assist, NWB RLE, and rolling walker in order to improve safety and independence with mobility. (Progressing) Start: 01/28/25 Expected End: 02/11/25 Transfers Patient will perform bed mobility with SBA in order to improve independence and prepare for out of bed mobility. (Progressing) Start: 01/28/25 Expected End: 02/11/25 Patient will complete functional transfer with least restrictive device with min assist and NWB RLEin order to prepare for ambulation. (Progressing) Start: 01/28/25 Expected End: 02/11/25 Therapy Time Individual Co-treatment Time In 1524 Time Out 1544 Minutes 20 Timed Code Treatment Minutes: 20 Minutes (TA) Mario Tellez PT * Rox Covington MD - 01/29/2025 12:39 PM EDT [facility] Hospitalist Progress note [phone]: Please page me ([phone]) for patient care issues. [phone]: Please page [facility] Hospitalist for any issues. Subjective: Admit Date: 01/25/2025 PCP: Dorothy Medrano Room#: [id number]/[id number] B Hanna Nelson is a 84 y.o. female who presents with Bacteremia BRIEF HOSPITAL COURSE: 84-year-old patient with history of DM2 with neuropathy, HTN, hyperlipidemia, AFib on Eliquis, hypothyroidism, and obesity presented [facility] on January 25 with: Generalized malaise, elevated blood pressure reading, tachycardia and elevated blood glucose. Last hospital stay at [facility] on December 02, 2024, treated for acute metabolic encephalopathy and Klebsiella UTI. Son reported patient was well until few days prior. Right foot ulcer was healing, but missed last wound care appointment, last one was 2 weeks ago. - Orthopedic surgery performed bedside I&D 01/26, lactic acid 2.6-1.8 after treatment, WBC 27 improved to 19.4.BLE duplex ultrasound: WNL. BLE PVRs: WNL Right femur x-ray (01/27/2025): Patient is status post long right femur cephalomedullary nail. Thereare moderate-severe degenerative changes of the right knee. There is no evidence of loosening or failure. MRI right foot no concern for osteomyelitis MRI Right Hip (01/28/25): No acute fractures. Study limited by previous right hip CMN. There is significant artifact from the CMN. There is no obvious fluid collections, no enhancement within the femur, or rim-enhancing fluid collections concerning for abscess. No obvious myositis soft tissue edemaconcerning for cellulitis. Interval History: No overnight issues. Denies chest pain, sob, abdominal pain, nausea, vomiting, diarrhea, constipation, fevers, or chills. WBC improving, creatinine improving Wound cultures grew MSSA Adult diet Regular; 4 carb choices (60 gm/meal) 24HR INTAKE/OUTPUT: Intake/Output Summary (Last 24 hours) at 01/29/2025 1639 Last data filed at 01/29/2025 1504 Gross per 24 hour Intake 1470 ml Output 1400 ml Net 70 ml LABS: CBC: Recent Labs 01/27/25 0051 01/28/258 01/29/25221 WBC 19.4* 17.3* 11.7* RBC 3.34* 3.52* 3.12* HGB 10.1* 10.6* 9.5* HCT 31.5* 33.3* 29.2* MCV 94.3 94.6 93.6 RDW 14.7 14.8 14.6 PLT 165 163 154 BMP: Recent Labs 01/27/25 0051 01/28/258 01/29/25221 NA 132* 130* 136 K 4.2 4.3 3.8 CL 106 105 108* CO2 18* 15* 18* BUN 36* 31* 35* CREATININE 1.25* 1.47* 1.16* GLUCOSE 136* 210* 212* CALCIUM 8.7* 9.1 9.0 ANIONGAP 8 10 10 LIVER PROFILE: No results for input(s): "AST", "ALT", "BILITOT", "ALKPHOS", "PROT" in the last 72 hours. No lab exists for component: "LABALBU" PT/INR: Recent Labs 01/26/257 PROTIME 12.7* INR 1.2* CARDIAC ENZYMES: No results for input(s): "TROPONINI" in the last 72 hours. Procalcitonin: No results found for: "PROCAL" @RISRSLTSPECIALTY@ Objective: Vitals: BP 153/98 (BP Location: Left arm, Patient Position: Sitting) Pulse 79 Temp 36.6 C (97.8F) (Temporal) Resp 20 Ht 5' 10" (1.778 m) Wt 214 lb 6.4 oz (97.3 kg) SpO2 92% BMI 30.76 kg/m Pulse Ox: SpO2 Av.5 % Min: 91 % Max: 92 % Supplemental O2: 01/29/2025 General appearance: No apparent distress, appears stated age, AAOX4 Oral: Tongue is semi-moist Cardiovascular: S1/S2 heard, RRR Respiratory: Clear to auscultation bilaterally Abdomen: Soft, non-tender, non-distended bowel sounds positive Musculoskeletal: Right foot wrapped Medications: Continuous Meds[1] Scheduled Meds[2] Assessment Severe Sepsis secondary to diabetic foot wound Demand ischemia without an acute MO NAYELY on CKD stage II-baseline creatinine of 1.04-1.2 A-fib with RVR Type 2 diabetes with hyperglycemia Chronic problems Hypertension Hypothyroidism Plan Per stewardship recommendation de-escalated Zosyn to Unasyn, continue vancomycin on 01/27-01/26 .wound has MSSA and Gp A strep. Recommend: DC Vanc.If dcing, amox- clav 875mg PO q12h for 4 more days. through 02/02. Orthopedics signed off , follow-up with Dr. Pugh as outpatient Monitor WBC Monitor creatinine Continue Eliquis Monitor blood sugars PT, OT recommending SNF, patient wanted to go home. DC home tomorrow if pt and family still wants to go home. Concerns about dressing changes -am labs, replace lytes prn -increase activity Diet Adult diet Regular; 4 carb choices (60 gm/meal) DVT Prophylaxis [] Lovenox, [] Heparin, [] SCDs, [] Ambulation [x] Already on Anticoagulation GI Prophylaxis [x] PPI, [] H2 Roxi, [] Carafate, [] Diet/Tube Feeds Code Status Full Code MDM [] Low, [] Moderate,[x] High Patient's risk as above Anticipated Discharge - Date - 01/30-01/31 - Location - Skilled Facility versus home - Pending the following -wound cultures Total time spent (which include face to face and non face to face encounters) : 45 minutes Toxic drug monitoring/narrow therapeutic index drug monitoring : # Drug name : # Route administered : # Method of monitoring : Extended Emergency Contact Information Primary Emergency Contact: Hi Nelson Relation: Son Preferred language: Burmese Metal Bumper needed? No Secondary Emergency Contact: Melba Black [employer] Relation: Daughter Advance Directive: Full Code Discharge planning: TBD Rox Covington MD Division of Hospitalist Medicine Inpatient Medical Services/[facility] [1] [2] ampicillin-sulbactam, 3,000 mg, IntraVENous, q6h apixaban, 5 mg, Oral, BID atenolol, 25 mg, Oral, BID gabapentin, 300 mg, Oral, BID insulin glargine, 32 Units, SubCUTAneous, Nightly insulin lispro, 0-12 Units, SubCUTAneous, TID WC insulin lispro, 8 Units, SubCUTAneous, TID WC Lactobacillus, 4 tablet, Oral, Daily levothyroxine, 112 mcg, Oral, qAM AC sodium chloride 0.9%, 5-40 mL, IntraVENous, 2 times per day * Alex Mena RPh - 01/29/2025 11:52 AM EDT Vancomycin therapy has been discontinued by Dr. Rox Covington on 01/29/25. Thank you for the consult. Pharmacy signing off for vancomycin dosing. Alex Mena RPh, PharmD. Date: 01/29/25 Time: 11:53 AM * Alex Mena RPh - 01/29/2025 8:24 AM EDT Pharmacy to Dose Vancomycin - Progress Note Lab Results Component Value Date CREATININE 1.16 (H) 01/29/2025 BUN 35 (H) 01/29/2025 WBC 11.7 (H) 01/29/2025 VANCOTROUGH 9.9 01/29/2025 Doses, serum creatinine, and vancomycin levels interfaced automatically to [employer] and data has been analyzed and interpreted. Infectious Diagnosis: SSTI/Sepsis Est CrCl: 44 mL/min (Cockcroft-Gault) Assessment: Current regimen vancomycin 1000 mg every 24 hours (10.3 mg/kg) Predicted AUC = 295 mg/L*hr (goal 400-600 mg/L*hr) PAUC = 3% (probability that AUC is >400 mg/L*hr) Pconc = 0% (probability that Ctrough is above 20 mcg/mL (toxicity)) Plan: Is the current dose therapeutic? [x] No - change current regimen to vancomycin 1750 mg every 24 hours (17.9 mg/kg) for predicted AUC= 511 mg/L*hr, PAUC = 95% , and Pconc* = 3%. Obtain next level on tomorrow 01/30/25. Trend serum creatinine. Trend AUC using Bayesian Modeling. Orders placed. DATE: 01/29/25 TIME: 8:24 AM Alex Mena RPh, PharmD. Available via Secure Chat * Mario Tellez, PT - 01/28/2025 2:31 PM EDT Images from the original note were not included. PHYSICAL THERAPY [facility] Initial Evaluation Name/MRN: Hanna Nelson ([id number]) Evaluation Date: 01/28/2025 Date of : 1940 Admission Date: 01/25/2025 10:39 PM Age: 84 y.o. Room/Bed: [facility] Discharge Recommendation: [facility] Facility Equipment Needed: No Assessment IMPRESSION: Pt is a 84 y.o. female who presented to the hospital due to generalized malaise, HTN, and hyperglycemia with findings of non-healing R diabetic ulcer s/p I&D 01/26/25, cellulitis/abscess. Pt reports at baseline performing mobility with Mod I and walker. Pt demonstrates mobility below baseline requiring Max assist to perform supine to sit and unable to perform sit to stand transfer due to weakness and NWB RLE status. Pt currently requires physical assistance for all mobility. Recommend discharge to SNF to improve balance, strength, activity tolerance, and mobility prior to return home. Admitting Diagnosis: Sepsis Prognosis: good Performance Deficits /Impairments: Increased Pain, Decreased Functional Mobility, Decreased Strength, Decreased Endurance, and Decreased Balance Decision Making: Low Complexity Subjective Pt is supine in bed upon arrival and is agreeable to PT evaluation. RN okayed PT session. 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 Fall Risk: Proctor Fall Risk Score: 55 (Low Risk) Proctor Fall Risk Score: 55 (High Risk) Precautions/Restrictions: Right LE Weight Bearing: Non-Weight Bearing Lines/Drains/Airways: PIV, external catheter Family/Caregiver Present: child(aguila) Overall Cognitive Status: Exceptions - Following commands: follows one step commands consistently Overall Orientation Status: Oriented to Place, Oriented to Situation, and Oriented to Person Vision: Not Assessed Hearing: normal Social/Functional History Patient admitted from home. Lives With: Alone Type of Home: condo Home Layout: Single Level Home Home Access: Ramped Entrance Bathroom Shower/Tub: Tub/Shower Combo and Walk in Shower Toilet: N/A Home Equipment: front wheeled walker Homemaking Responsibilities: Independent Receives Help From: None Active Bindery Manager: Yes Pt denies alls in the past 6 months. Use of walker for mobility. Pt performs ADLs independently. Sponge bathes. Prior Level of Function Prior Level of ADL Function: Independent Prior Level of Mobility: Independent; Device: Front wheeled walker Prior Level of Transfers: Independent Objective Lower Extremity Assessment AROM: Decreased R ankle ROM noted due to bandaging in place Strength: bilateral knee extension at least 3/5, bilateral hip flexion at least 3/5, bilateral ankle DF 3/5 Sensation: pt denies numbness/tingling in BLEs. Balance: Balance During Session: Posture: fair Sitting - Static: SBA Sitting - Dynamic: SBA Bed Mobility: Supine to sit: Max Assist Sit to supine: Max Assist Use of bed rail(s) Supine scooting: Max assist x2 Lateral scooting at EOB with CGA-SBA at trunk and Max assist to maintain NWB RLE Transfers Attempted to perform sit to stand from elevated EOB to walker. Max assist required to maintain NWB RLE with Max assist provided at trunk with pt unable to clear bed. Outcome Measures AM-PAC How much HELP from another person do you currently need Turning from your back to your side while in a flat bed without using bedrails?: A Lot Moving from lying on your back to sitting on the side of a flat bed without using bedrails?: A Lot Moving to and from a bed to a chair (including a wheelchair)?: A Lot Standing up from a chair using your arms (wheelchair or bedside chair)?: A Lot Walking in a hospital room?: Total Stair climbing assessed?: No AM-PAC Inpatient Mobility Raw Score (No Stairs) : 9 [facility] Score: Sat at edge of bed Plan Pt would benefit from skilled acute PT services to address Strengthening, Gait Training, Balance Training, Functional Mobility Training, Endurance Training, Safety Education and Training, and Pain Management. Frequency: 3x/week for 2 weeks Barriers: Pain, Impaired balance, Lower extremity weakness, and Decreased endurance Safety/Education Safety Safety Devices in place: call light within reach, left in bed, gait belt, no alarms engaged upon entry, and pt's son present in room at end of session Restraints: No Education Education Given To: patient and son Education Provided: PT Role, PT Goals, Plan of Care, Precautions, Transfer Training, and Discharge Recommendations Education Method: Verbal Barriers to Learning: None Education Outcome: Continued Education Needed Goals Patient Stated Goal: to be able to go home Encounter Problems Encounter Problems (Active) Balance Patient will maintain static standing balance for 2 minutes with SBA in order to demonstrate decreased risk of falling. Start: 01/28/25 Expected End: 02/11/25 Exercise Patient will complete lower extremity exercises for 1 sets / 15 reps in order to improve strength and activity tolerance for mobility. Start: 01/28/25 Expected End: 02/11/25 Mobility Patient will ambulate 10ft feet with min assist, NWB RLE, and rolling walker in order to improve safety and independence with mobility. Start: 01/28/25 Expected End: 02/11/25 Transfers Patient will perform bed mobility with SBA in order to improve independence and prepare for out of bed mobility. Start: 01/28/25 Expected End: 02/11/25 Patient will complete functional transfer with least restrictive device with min assist and NWB RLEin order to prepare for ambulation. Start: 01/28/25 Expected End: 02/11/25 Therapy Time Individual Co-Treatment Co-Evaluation Time In 1355 Time Out 1424 Minutes 29 Mario Tellez PT Patient's Physical Therapy Plan of Care supervision is transferred to a [facility] Therapy Services Physical Therapist. Goals and/or treatment plan was established in collaboration with patient/family/other representatives. [1] Past Medical History: Diagnosis Date Atrial fibrillation (HCC) Diabetes mellitus (HCC) Hyperlipidemia Hypertension Hypothyroidism Neuropathy [2] Past Surgical History: Procedure Laterality Date BACK SURGERY CHOLECYSTECTOMY * Rox Covington MD - 01/28/2025 10:33 AM EDT [facility] Hospitalist Progress note [id number]: Please page me ([phone]) for patient care issues. [phone]: Please page [facility] Hospitalist for any issues. Subjective: Admit Date: 01/25/2025 PCP: Dorothy Medrano Room#: [id number]/[id number] B Hanna Nelson is a 84 y.o. female who presents with Bacteremia BRIEF HOSPITAL COURSE: 84-year-old patient with history of DM2 with neuropathy, HTN, hyperlipidemia, AFib on Eliquis, hypothyroidism, and obesity presented to [facility] on January [facility] with: Generalized malaise\\, elevated blood pressure reading, tachycardia and elevated blood glucose. Last hospital stay at [facility] on December 02, 2024, treated for acute metabolic encephalopathy and Klebsiella UTI. Son reported patient was well until few days prior. Right foot ulcer was healing, but missed last wound care appointment, last one was 2 weeks ago. - Orthopedic surgery performed bedside I&D 01/26, lactic acid 2.6-1.8 after treatment, WBC 27 improved to 19.4.BLE duplex ultrasound: WNL. BLE PVRs: WNL Right femur x-ray (01/27/2025): Patient is status post long right femur cephalomedullary nail. Thereare moderate-severe degenerative changes of the right knee. There is no evidence of loosening or failure. MRI right foot no concern for osteomyelitis MRI Right Hip (01/28/25): No acute fractures. Study limited by previous right hip CMN. There is significant artifact from the CMN. There is no obvious fluid collections, no enhancement within the femur, or rim-enhancing fluid collections concerning for abscess. No obvious myositis soft tissue edemaconcerning for cellulitis. Interval History: No overnight issues. Denies chest pain, sob, abdominal pain, nausea, vomiting, diarrhea, constipation, fevers, or chills. WBC improving, creatinine fluctuating Adult diet Regular; 4 carb choices (60 gm/meal) 24HR INTAKE/OUTPUT: Intake/Output Summary (Last 24 hours) at 01/28/2025 1033 Last data filed at 01/28/2025 0846 Gross per 24 hour Intake 760 ml Output -- Net 760 ml LABS: CBC: Recent Labs 01/26/25 1031 01/27/25 0051 01/28/25 0018 WBC 18.4* 19.4* 17.3* RBC 3.76* 3.34* 3.52* HGB 11.4* 10.1* 10.6* HCT 37.3 31.5* 33.3* MCV 99.2* 94.3 94.6 RDW 14.6 14.7 14.8 PLT 110* 165 163 BMP: Recent Labs 01/26/25 1031 01/27/25 0051 01/28/25 0018 NA 135* 132* 130* K 4.5 4.2 4.3 CL 107 106 105 CO2 19* 18* 15* BUN 44* 36* 31* CREATININE 1.44* 1.25* 1.47* GLUCOSE 250* 136* 210* CALCIUM 8.7* 8.7* 9.1 ANIONGAP 9 8 10 LIVER PROFILE: Recent Labs 01/26/25 1031 AST 17 ALT 11 BILITOT 0.4 ALKPHOS 40 PROT 6.4 PT/INR: Recent Labs 01/26/25 2217 PROTIME 12.7* INR 1.2* CARDIAC ENZYMES: No results for input(s): "TROPONINI" in the last 72 hours. Procalcitonin: No results found for: "PROCAL" @RISRSLTSPECIALTY@ Objective: Vitals: BP 143/86 (BP Location: Left arm, Patient Position: Lying) Pulse 75 Temp 36.4 C (97.5 F) (Temporal) Resp 16 Ht 5' 10" (1.778 m) Wt 212 lb (96.2 kg) SpO2 95% BMI 30.42 kg/m Pulse Ox: SpO2 Av.2 % Min: 91 % Max: 97 % Supplemental O2: 01/28/2025 General appearance: No apparent distress, appears stated age, AAOX4 Oral: Tongue is semi-moist Cardiovascular: S1/S2 heard, RRR Respiratory: Clear to auscultation bilaterally Abdomen: Soft, non-tender, non-distended bowel sounds positive Musculoskeletal: Right foot wrapped Medications: Continuous Meds[1] Scheduled Meds[2] Assessment Severe Sepsis secondary to diabetic foot wound Demand ischemia without an acute MO NAYELY on CKD stage II-baseline creatinine of 1.04-1.2 A-fib with RVR Type 2 diabetes with hyperglycemia Chronic problems Hypertension Hypothyroidism Plan Per stewardship recommendation de-escalated Zosyn to Unasyn, continue vancomycin Follow-up on IntraOp wound cultures Orthopedics signed off today, follow-up with Dr. Puhg as outpatient Monitor WBC Monitor creatinine Continue Eliquis Monitor blood sugars PT, OT evaluation pending -am labs, replace lytes prn -increase activity Diet Adult diet Regular; 4 carb choices (60 gm/meal) DVT Prophylaxis [] Lovenox, [] Heparin, [] SCDs, [] Ambulation [x] Already on Anticoagulation GI Prophylaxis [x] PPI, [] H2 Roxi, [] Carafate, [] Diet/Tube Feeds Code Status Full Code MDM [] Low, [] Moderate,[x] High Patient's risk as above Anticipated Discharge - Date - 01/30-01/30 - Location - Skilled Facility versus home - Pending the following -wound cultures Total time spent (which include face to face and non face to face encounters) : 48 minutes Toxic drug monitoring/narrow therapeutic index drug monitoring : # Drug name : # Route administered : # Method of monitoring : Extended Emergency Contact Information Primary Emergency Contact: Hi Nelson Relation: Son Preferred language: Burmese Metal Bumper needed? No Secondary Emergency Contact: Melba Black [place] [employer] [facility] [employer] Relation: Daughter Advance Directive: Full Code Discharge planning: TBD Rox Covington MD Division of Hospitalist Medicine Inpatient Medical Services/[facility] [1] [2] ampicillin-sulbactam, 3,000 mg, IntraVENous, q6h apixaban, 5 mg, Oral, BID atenolol, 25 mg, Oral, BID gabapentin, 300 mg, Oral, BID insulin glargine, 32 Units, SubCUTAneous, Nightly insulin lispro, 0-12 Units, SubCUTAneous, TID WC insulin lispro, 5 Units, SubCUTAneous, TID WC Lactobacillus, 4 tablet, Oral, Daily levothyroxine, 112 mcg, Oral, qAM AC sodium chloride 0.9%, 5-40 mL, IntraVENous, 2 times per day vancomycin, 1,000 mg, IntraVENous, q24h * Mercedez Wolf, ALEJANDRINA - NUCLEAR PLANT INSTRUMENT TECHNICIAN - 01/28/2025 8:30 AM EDT Images from the original note were not included. [facility] Wound Care Progress Note Hanna Nelson AGE: 84 y.o. GENDER: female : 1940 Subjective: HISTORY of PRESENT ILLNESS HPI Hanna Nelson is a 84 y.o. female who presents for a wound care follow up. HPI: 84 y.o. female who presents to the emergency department with chief complaint of feeling unwell. Part of the history is provided by her son and daughter at the bedside, who states that this evening, her blood pressure was 165/125, her heart rate was 117, and her blood sugar was greater than 300. Admitted for bacteremia, SIRS and severe sepsis. Wound Care consulted for right foot wound. Per chart review, bedside I&D was preformed per Raeann LAUREN on 01/26/25. Patient sees Dr. Alas as an outpatient. Patient resting in bed at time of visit. RN present at bedside. Per RN, dressing changed 5x yesterday. Treatment changed and applied per wound care service. Patient updated on plan of care. PAST MEDICAL HISTORY Medical History[1] PAST SURGICAL HISTORY Surgical History[2] FAMILY HISTORY Family History[3] SOCIAL HISTORY Social History[4] ALLERGIES Allergies[5] MEDICATIONS Medications Ordered Prior to Encounter[6] REVIEW OF SYSTEMS Pertinent items are noted in HPI. Objective: BP 127/74 (BP Location: Left arm, Patient Position: Lying) Pulse 83 Temp 36.2 C (97.2 F) (Temporal) Resp 20 Ht 5' 10" (1.778 m) Wt 212 lb (96.2 kg) SpO2 94% BMI 30.42 kg/m PHYSICAL EXAM General appearance: in no apparent distress, in no respiratory distress and acyanotic, alert, cooperative, and moderately ill Skin: warm and dry Pulmonary: Normal effort, no respiratory distress, no cyanosis Abdomen: soft, nontender, and nondistended Extremities: warm and dry Right plantar foot - 2.5 x 0.6 x 1.5cm - wound bed with large red granular tissue, moderate sanguinous drainage, strike through on old dressing, linda wound tissue with erythema, edema, no odor, woundis tender. 01/27/25 LABS CBC: Lab Results Component Value Date WBC 17.3 (H) 01/28/2025 HGB 10.6 (L) 01/28/2025 HCT 33.3 (L) 01/28/2025 MCV 94.6 01/28/2025 PLT 163 01/28/2025 BMP: Lab Results Component Value Date NA 130 (L) 01/28/2025 K 4.3 01/28/2025 CL 105 01/28/2025 CO2 15 (L) 01/28/2025 BUN 31 (H) 01/28/2025 CREATININE 1.47 (H) 01/28/2025 PT/INR: Lab Results Component Value Date PROTIME 12.7 (H) 01/26/2025 INR 1.2 (H) 01/26/2025 Prealbumin: No results found for: "PREALBUMIN" Albumin:No components found for: "LABALBU" Sed Rate: Lab Results Component Value Date SEDRATE 17 01/26/2025 Micro: No components found for: "BC" Assessment/Plan: Nursing staff to perform dressing change: Right plantar foot DFU (muscle): Right foot cellulitis: -cleanse with NS, gently pack maxorb into wound space, cover with ABD, kerlix - change Daily/PRN -avoid pressure to wound as much as possible -Ortho following Nutritional support Wound Care to follow Recommend to follow up at [facility] Outpatient wound care center after hospital discharge. Any questions or concerns please secure chat "ACH wound/ostomy". Thank you for the consult! I personally obtained the larsen and critical portions of the history and physical exam. I reviewed the labs, imaging studies, and electronic medical record. I reviewed the chart documentation and discussed the patient with treatment team members. I have edited the note to reflect my clinical findingsand my assessment and plan. Please note, the time of this note does not reflect the time I saw thispatient today, but the time of this documentaton. Portions of this note including HPI, ROS, impression/plan, and examination may have been copied forward from admission to today as to provide important historical information essential in contributing to medical decision making. Documentation has been reviewed and edited as necessary to support clinical decision making for today's visit and to reflect my own independent evaluation of this patient. Decision making for today's visit and to reflectmy own independent evaluation of this patient. [1] Past Medical History: Diagnosis Date Atrial fibrillation (HCC) Diabetes mellitus (HCC) Hyperlipidemia Hypertension Hypothyroidism Neuropathy [2] Past Surgical History: Procedure Laterality Date BACK SURGERY CHOLECYSTECTOMY [3] No family history on file. [4] Social History Tobacco Use Smoking status: Former Current packs/day: 0.00 Types: Cigarettes Quit date: 1965 Years since quittin.5 Smokeless tobacco: Never Vaping Use Vaping status: Never Used Substance Use Topics Alcohol use: Yes Comment: drinks bee occasionally Drug use: Never [5] Allergies Allergen Reactions Tape Rash [6] No current facility-administered medications on file prior to encounter. Current Outpatient Medications on File Prior to Encounter Medication Sig Dispense Refill Alcohol Swabs (Alcohol Prep) 70 % pads 1 Pad 3 times daily. 200 each 2 apixaban (Eliquis) 5 MG tablet Take 5 mg by mouth 2 times daily. Blood Glucose Monitoring Suppl (Blood Glucose Monitor System) w/Device kit Check glucose 3x daily 1kit 0 Continuous Glucose Sensor (FreeStyle Javier 3 Plus Sensor) misc 1 each every 15 days. 2 each 11 gabapentin (Neurontin) 300 MG capsule Take 300 mg by mouth 2 times daily. glucose blood test strip Use as instructed 100 each 0 insulin degludec (Tresiba FlexTouch) 100 UNIT/ML injection Inject under the skin Nightly. insulin glargine (Lantus) 100 UNIT/ML injection Inject 32 Units under the skin Nightly. 10 mL 12 Lancets Check glucose x3 daily 100 each 3 levothyroxine (Tirosint) 112 MCG capsule Take by mouth every morning (before breakfast). metFORMIN (Glucophage) 500 MG tablet Take 1 tablet (500 mg) by mouth 2 times daily (with meals). 60tablet 6 oxybutynin (Ditropan) 5 MG tablet Take 10 mg by mouth daily. semaglutide (Ozempic) 2 MG/3ML solution pen-injector Inject 0.5 mg under the skin 1 (one) time per week. 3 mL 11 atenolol (Tenormin) 25 MG tablet Take 1 tablet (25 mg) by mouth 2 times daily. 60 tablet 0 atorvastatin (Lipitor) 40 MG tablet Take 40 mg by mouth daily. (Patient not taking: Reported on 01/25/2025) ciprofloxacin (Cipro) 250 MG tablet Take 250 mg by mouth 2 times daily. (Patient not taking: No sigreported) fenofibrate (Triglide) 160 MG tablet Take 160 mg by mouth daily. (Patient not taking: Reported on 01/25/2025) Cosigned by Hi Mckeon DO at 02/01/2025 4:44 PM EDT * Alex Mena [facility] - 01/28/2025 8:15 AM EDT Pharmacy to Dose Vancomycin - Progress Note Lab Results Component Value Date CREATININE 1.47 (H) 01/28/2025 BUN 31 (H) 01/28/2025 WBC 17.3 (H) 01/28/2025 VANCOTROUGH 11.6 01/27/2025 Doses, serum creatinine, and vancomycin levels interfaced automatically to [employer] and data has been analyzed and interpreted. Infectious Diagnosis: SSTI/Sepsis Est CrCl: 35 mL/min (Cockcroft-Gault) Assessment: Current regimen vancomycin 1250 mg every 24 hours (13 mg/kg) Predicted AUC = 663 mg/L*hr (goal 400-600 mg/L*hr) PAUC = 99% (probability that AUC is >400 mg/L*hr) Pconc = 57% (probability that Ctrough is above 20 mcg/mL (toxicity)) Plan: Is the current dose therapeutic? [x] No - change current regimen to vancomycin 1000 mg every 24 hours (10.4 mg/kg) for predicted AUC= 536 mg/L*hr, PAUC = 90% , and Pconc* = 30%. Obtain next level tomorrow 01/29/25. Trend serum creatinine. Trend AUC using Bayesian Modeling. Orders placed. DATE: 01/28/25 TIME: 8:15 AM Alex Mena RPh, PharmD. Available via Secure Chat * Ruchi Bardales MD - 01/28/2025 1:44 AM EDT MRI Right Hip (01/28/25): No acute fractures. Study limited by previous right hip CMN. There is significant artifact from the CMN. There is no obvious fluid collections, no enhancement within the femur, or rim-enhancing fluid collections concerning for abscess. No obvious myositis soft tissue edemaconcerning for cellulitis. Orthopedic surgery will sign off at this time. She can follow-up with Dr. Alas for her foot abscess. * Aditi Young RD - 01/27/2025 5:00 PM EDT Nutrition Assessment Type and Reason for Visit: Initial Nutrition Recommendations/Plan: Per MNT protocol will modify Adult diet Regular to include 60 g CHO controlled diet to promote euglycemia and wound healing Supplement(s): Added Fruit Punch Jamie BID with meals (provides 90 kcals, 14 g AA, 2.5 grams Collagen, 300 mg Vitamin C, 9.5 mg Zinc, 1 packet per serving) per MNT protocol Will continue to monitor labs, meds, po intakes and/or enteral nutrition tolerance, skin integrity,wt trends, and overall nutrition status - RD to follow weekly Malnutrition Assessment: Malnutrition Status: At risk for malnutrition (Comment) (wound) Context: Acute Illness Findings of the 6 clinical characteristics of malnutrition: Energy Intake: No significant decrease in energy intake Weight Loss: No significant weight loss Body Fat Loss: Unable to assess Muscle Mass Loss: Unable to assess Fluid Accumulation: Mild Extremities Maintenance Service Supervisor Strength: Not Performed Chief Complaint Patient presents with Illness Generally not feeling well Past Medical and Surgical History: Medical History[1] Surgical History[2] Nutrition Assessment: LOS# 1. +Nutrition screen for wound. 84F w/ PMHx: DM2 w/ neuropathy, HTN, HLD, AFib on Eliquis, hypothyroidism, and obesity presented to [facility] on January 25 for generalized malaise, elevated blood pressure reading, tachycardia and elevated blood glucose. Last hospital stay at [facility] on November, treated for acute metabolic encephalopathy and Klebsiella UTI. Pt's son reported the pt was well until a few days prior. Right foot ulcer was healing, but missed last wound care appt, last one was 2 weeks ago. Found with sepsis 2/2 DFU. LA resolved. Afib w/ RVR improved. Ortho performed bedside I&D 01/26. Started IVAB, wound cx pending. Cr slowly improving. Pt is trying to cut back on sure to help manage BS better. Po intakes of regular diet 100% for all meals. Estimated Daily Nutrient Needs: Energy Requirements Based On: Kcal/kg Weight Used for Energy Requirements: [place] Weight for Energy Calculation (kg): 68 kg Total Energy Requirements (kcals/day): 4056-7860 (25-30 kcals/kg) Weight Used for Protein Requirements: [place] Weight in Kg Used for Protein Requirements: 68 kg Estimated Total Protein (g/day): 68-82 (1-1.2 g/kg) Estimated Daily Total Fluid (ml/day): 1 ml/kcal or per MD Nutrition Related Findings: Wound Type: Multiple, Diabetic Ulcer (per wound care: 1.) Right plantar foot DFU (muscle); 2.) Right foot cellulitis) Isolation Status: No active isolations Food Allergies: NKFA Room Service: Selective Kait Scale Score: 17 RLE Edema: Moderate pitting, indentation subsides rapidly LLE Edema: Mild pitting, slight indentation Gastrointestinal (WDL): Within Defined Limits Last BM Date: 01/25/25 Nutrition History: Independent of feeding Level of Consciousness: Alert; Orientation Level: Oriented to person, Oriented to situation, Disoriented to place, Disoriented to time Code Status, Oxygen Needs, Vital Signs, I/Os: Code Status: Full Code Oxygen Therapy: SpO2: 97 %; Oxygen Therapy: None (Room air) Vital Signs: Temp: 36.3 C (97.3 F); Heart Rate: 71; Resp: 18; BP: 117/65; MAP (mmHg): 82 Net IO Since Admission: 1,475 mL [01/27/251711] Intake/Output Summary (Last 24 hours) at 01/27/2025 171 Last data filed at 01/27/2025 1207 Gross per 24 hour Intake 2010 ml Output 825 ml Net 1185 ml Labs/Meds Reviewed: Scheduled Meds[3] Continuous Meds[4] BMP: Recent Labs 01/25/25 2306 01/26/25 1031 01/27/25 0051 NA 139 135* 132* K 4.6 4.5 4.2 CL 105 107 106 CO2 22* 19* 18* BUN 43* 44* 36* CREATININE 1.45* 1.44* 1.25* GLUCOSE 351* 250* 136* CALCIUM 9.4 8.7* 8.7* HEPATIC: Recent Labs 01/26/25 1031 AST 17 ALT 11 BILITOT 0.4 ALKPHOS 40 Lab Results Component Value Date HGBA1C 9.0 (H) 12/02/2024 HGBA1C 12.2 (H) 09/20/2024 Recent Labs 01/25/25 2237 01/26/25 1036 01/26/25 1200 01/26/25 1728 01/26/25 1945 01/27/25 0736 01/27/25 0834 01/27/25 1145 POCGLU 345* 245* 252* 269* 288* 262* 292* 244* Current Nutrition Therapies: Adult diet Regular Current Oral Intake Average Meal Intake: 76-100% Average Supplements Intake: None Ordered Anthropometric Measures: Height: 177.8 cm (5' 10") Current Body Weight: 99.8 kg (220 lb) [place] Body Weight (lbs) (Calculated): 150 lbs [place] Body Weight (Kg) (Calculated): 68 kg % [place] Body Weight (Calculated): 146.7 % BMI (kg/m2) (Calculated): 31.6 BMI (Calculated): 31.57 Weight: 99.8 kg (220 lb) Weight Method: Bed scale Weight History: Wt Readings from Last 20 Encounters: 01/27/25 99.8 kg (220 lb) 01/05/25 91.6 kg (202 lb) 12/11/24 91.6 kg (202 lb) 12/03/24 91.8 kg (202 lb 4.8 oz) 10/15/24 90.4 kg (199 lb 6.4 oz) 09/17/24 90.7 kg (200 lb) Nutrition Diagnosis: Increased nutrient needs related to increase demand for energy/nutrients as evidenced by wounds In context of chronic illness related to endocrine dysfuntion as evidenced by lab values Nutrition Interventions: Food and/or Nutrient Delivery: Modify Current Diet and Start Oral Nutrition Supplement Nutrition Education/Counseling: No recommendation at this time Coordination of Nutrition Care: Continue to monitor while inpatient Goals: Goals: Meet at least 75% of estimated needs Nutrition Monitoring and Evaluation: Behavioral-Environmental Outcomes: None Identified Food/Nutrient Intake Outcomes: Food and Nutrient Intake, Supplement Intake Physical Signs/Symptoms Outcomes: Biochemical Data, Weight, Skin, GI Status Discharge Planning: Too soon to determine Aditi Young MS, RD, LD Contact: or Mouth Party (dial *[phone] from hospital phone) [1] Past Medical History: Diagnosis Date Atrial fibrillation (HCC) Diabetes mellitus (HCC) Hyperlipidemia Hypertension Hypothyroidism Neuropathy [2] Past Surgical History: Procedure Laterality Date BACK SURGERY CHOLECYSTECTOMY [3] ampicillin-sulbactam, 3,000 mg, IntraVENous, q6h apixaban, 5 mg, Oral, BID atenolol, 25 mg, Oral, BID gabapentin, 300 mg, Oral, BID insulin glargine, 32 Units, SubCUTAneous, Nightly insulin lispro, 0-12 Units, SubCUTAneous, TID WC insulin lispro, 5 Units, SubCUTAneous, TID WC Lactobacillus, 4 tablet, Oral, Daily levothyroxine, 112 mcg, Oral, qAM AC sodium chloride 0.9%, 5-40 mL, IntraVENous, 2 times per day vancomycin, 1,250 mg, IntraVENous, q24h [4] * Magda Gomez PA-C - 01/27/2025 2:50 PM EDT Orthopedic Surgery Progress Note The following x-rays were ordered and subsequently completed. My interpretation is as follows: Right femur x-ray (01/27/2025): Patient is status post long right femur cephalomedullary nail. Thereare moderate-severe degenerative changes of the right knee. There is no evidence of loosening or failure. Radiology reports to be reviewed. Will discuss with Dr. Gorman. Will plan for clinical exam tomorrow (01/28/2025). If clinically worsens, will consider right femur MRI with and without contrast. Orthopaedic surgery will follow. Please page vp information technology orthopaedic resident for questions or concerns. Orthopedic Surgery Progress Note Spoke with Dr. Gorman. Plan for right hip MRI with and without contrast * Magda Gomez PA-C - 01/27/2025 12:56 PM EDT Images from the original note were not included. Orthopedic Progress Note Name: Hanna Nelson Date:01/27/2025 Attending:Katey Beard MD Subjective CHIEF COMPLAINT: with bilateral charcot arthropathy a right diabetic non-healing ulcer and concomitant cellulitis/abscess. HPI: Patient is seen resting comfortably in bed, her daughter is at bedside. Patient denies any significant pain into her right foot. She is pleasantly confused on evaluation. Discussed with patient's daughter plan for continued wound care to her right foot. On exam, patient was noticed to have a bandlike area of erythema about the right anteromedial proximal thigh. Patient's daughter reports that this is new from baseline. Patient's daughter states that the patient underwent a right hip cephalomedullary nail over 10 years ago in [place]. Objective PAST MEDICAL HISTORY Problem List[1] PAST SURGICAL HISTORY Surgical History[2] HOME MEDICATIONS Prior to Admission medications Medication Sig Start Date End Date Taking? Authorizing Provider Alcohol Swabs (Alcohol Prep) 70 % pads 1 Pad 3 times daily. 09/23/24 Yes Herman Pepper DO apixaban (Eliquis) 5 MG tablet Take 5 mg by mouth 2 times daily. Yes Historical Provider, Blood Glucose Monitoring Suppl (Blood Glucose Monitor System) w/Device kit Check glucose 3x daily 09/23/24 Yes Herman Pepper, DO Continuous Glucose Sensor (FreeStyle Javier 3 Plus Sensor) misc 1 each every 15 days. 12/24/24 Yes ALEJANDRINA Urias CNP gabapentin (Neurontin) 300 MG capsule Take 300 mg by mouth 2 times daily. Yes Historical Provider, glucose blood test strip Use as instructed 09/17/24 09/17/25 Yes Damian Loza, DO insulin degludec (Tresiba FlexTouch) 100 UNIT/ML injection Inject under the skin Nightly. Yes Historical Provider, insulin glargine (Lantus) 100 UNIT/ML injection Inject 32 Units under the skin Nightly. 12/05/24 12/05/25 Yes Shane Rodriguez MD Lancets Check glucose x3 daily 09/23/24 Yes Herman Pepper DO levothyroxine (Tirosint) 112 MCG capsule Take by mouth every morning (before breakfast). Yes Historical Provider, metFORMIN (Glucophage) 500 MG tablet Take 1 tablet (500 mg) by mouth 2 times daily (with meals). 09/24/24 04/22/25 Yes Herman Pepper DO oxybutynin (Ditropan) 5 MG tablet Take 10 mg by mouth daily. Yes Historical Provider, semaglutide (Ozempic) 2 MG/3ML solution pen-injector Inject 0.5 mg under the skin 1 (one) time per week. 12/24/24 12/24/25 Yes ALEJANDRINA Urias CNP atenolol (Tenormin) 25 MG tablet Take 1 tablet (25 mg) by mouth 2 times daily. 12/05/24 01/12/25 Shane Rodriguez MD atorvastatin (Lipitor) 40 MG tablet Take 40 mg by mouth daily. Patient not taking: Reported on 01/25/2025 Historical Provider, ciprofloxacin (Cipro) 250 MG tablet Take 250 mg by mouth 2 times daily. Patient not taking: No sig reported Historical Provider, fenofibrate (Triglide) 160 MG tablet Take 160 mg by mouth daily. Patient not taking: Reported on 01/25/2025 Historical Provider, CURRENT HOSPITAL MEDICATIONS Current Medications[3] ALLERGIES: Tape SOCIAL HISTORY: Social History Socioeconomic History Marital status: Spouse name: Not on file Number of children: Not on file Years of education: Not on file Highest education level: Not on file Occupational History Not on file Tobacco Use Smoking status: Former Current packs/day: 0.00 Types: Cigarettes Quit date: 1964 Years since quittin.5 Smokeless tobacco: Never Vaping Use Vaping status: Never Used Substance and Sexual Activity Alcohol use: Yes Comment: drinks bee occasionally Drug use: Never Sexual activity: Not on file Other Topics Concern Not on file Social History Narrative Not on file Social Drivers of Health Financial Resource Strain: Not on file Food Insecurity: No Food Insecurity (12/03/2024) Hunger Vital Sign Worried About Running Out of Food in the Last Year: Never true Ran Out of Food in the Last Year: Never true Transportation Needs: No Transportation Needs (12/03/2024) PRAPARE - Transportation Lack of Transportation (Medical): No Lack of Transportation (Non-Medical): No Physical Activity: Not on file Stress: Not on file Social Connections: Not on file Intimate Partner Violence: Not At Risk (12/03/2024) Humiliation, Afraid, Rape, and Kick questionnaire Fear of Current or Ex-Partner: No Emotionally Abused: No Physically Abused: No Sexually Abused: No Housing Stability: Low Risk (12/03/2024) Housing Stability Vital Sign Unable to Pay for Housing in the Last Year: No Number of Times Moved in the Last Year: 1 Homeless in the Last Year: No FAMILY HISTORY: Family History[4] Further Family History is noncontributory to this injury. REVIEW OF SYSTEMS: Review of Systems - General ROS: negative for - chills, fatigue, fever, malaise or night sweats Psychological ROS: negative Ophthalmic ROS: negative ENT ROS: negative for - headaches or sore throat Hematological and Lymphatic ROS: negative for - bleeding problems or blood clots Respiratory ROS: no cough, shortness of breath, or wheezing Cardiovascular ROS: no chest pain or dyspnea on exertion Gastrointestinal ROS: negative Musculoskeletal ROS: See HPI Neurological ROS: negative for - bowel and bladder control changes, gait disturbance or numbness/tingling All other systems reviewed and are negative VITALS: Vitals: 01/27/25 0248 01/27/25 0522 01/27/25 0731 01/27/25 1110 BP: 124/79 114/74 103/64 BP Location: Left arm Left arm Left arm Patient Position: Lying Lying Sitting Pulse: 73 101 86 Resp: 20 16 20 Temp: 37 C (98.6 F) 36.1 C (97 F) 36.2 C (97.1 F) TempSrc: Temporal Temporal Temporal SpO2: 96% 95% 95% Weight: 99.8 kg (220 lb) Height: PHYSICAL EXAM: GENERAL: Patient is well developed/well nourished in NAD. A+O x 4 MOOD AND AFFECT: Calm appropriate to situation GAIT AND STATION: Patient is in bed COORDINATION and BALANCE: Patient is grossly coordinated LYMPHADENOPATHY: none on examination of the affected extremity(s) RLE INSPECTION SKIN: Erythema about the lower leg has receded from previous clinical media images on 01/26/2025. Incision about the plantar medial aspect of the foot demonstrate serosanguineous type discharge with clot formation. There is no expressible purulence about the plantar foot. Separately, there is a bandlike area of erythema about the superior, anterior right thigh/groin. Erythema about the lower leg and anteromedial thigh do not appear to be contiguous. There is no palpable crepitus or palpable fluctuance about the thigh or lower leg. Patient endorses pain with range of motion about theright hip. There is no true short arc pain with range of motion of the hip. Surgical incision aboutthe lateral thigh are clean well-approximated NEUROLOGICAL: SILT absent to +Saphenous/Superficial Peroneal/Deep Peroneal/Tibial/Sural distributions MOTOR: + Hip flexion/knee flexion/knee extension/dorsiflexion/Plantarflexion/Great toe extension; patient endorses pain with hip flexion into the right groin VASCULAR: Palpable dorsalis pedis pulse. Capillary refill to all 5 lower extremity digits was briskand all digits were warm to touch. Right medial lower leg Right anterior thigh Right medial thigh Right lateral thigh Right posterior leg Right plantar foot LABS: CBC: Lab Results Component Value Date WBC 19.4 (H) 01/27/2025 RBC 3.34 (L) 01/27/2025 BMP: Lab Results Component Value Date GLUCOSE 136 (H) 01/27/2025 CO2 18 (L) 01/27/2025 BUN 36 (H) 01/27/2025 CREATININE 1.25 (H) 01/27/2025 CALCIUM 8.7 (L) 01/27/2025 PT/INR: Lab Results Component Value Date INR 1.2 (H) 01/26/2025 Type and Screen: Lab Results Component Value Date RH POS 01/26/2025 RH POS 01/26/2025 CRP: Lab Results Component Value Date CRP 95.4 (H) 01/26/2025 ESR: Lab Results Component Value Date SEDRATE 17 01/26/2025 HgBA1c: No components found for: "LABA1C" The above labs were reviewed by me. Assessment Hanna is a 84 y.o.female with bilateral charcot arthropathy a right diabetic non-healing ulcer and concomitant cellulitis/abscess, s/p bedside I&D 01/26/2025. Plan -No plan for further procedural intervention. -Patient's right foot wound was without expressible purulence. However, patient has bandlike erythema appreciated about the superior, anteromedial aspect of the right thigh. Per daughter at bedside, this is new from baseline. X-ray ordered, will discuss with Dr. Gorman. Will tentatively plan for MRI -Wound care consulted. Plan for continued wound management per wound care team. - Procedure cultures sent -NWB RLE -PT/OT -Ok for anticoagulation, DVT ppx; per primary team -Ice and elevate -Medical management & pain control per primary -F/u Dr Alas at discharge regarding foot wound -Ortho to follow. Please page orthopedic resident vp information technology with questions or concerns. 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) Confusion Sepsis (HCC) [2] Past Surgical History: Procedure Laterality Date BACK SURGERY CHOLECYSTECTOMY [3] Current Facility-Administered Medications: acetaminophen (Tylenol) tablet 650 mg, 650 mg, Oral, q6h PRN, 650 mg at 01/26/25 1315 OR acetaminophen (Tylenol) suppository 650 mg, 650 mg, Rectal, q6h PRN, Tiarra Ruelas 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 - NUCLEAR PLANT INSTRUMENT TECHNICIAN apixaban (Eliquis) tablet 5 mg, 5 mg, Oral, BID, Tiarra Ruelas APRN - NUCLEAR PLANT INSTRUMENT TECHNICIAN, 5 mg at 01/27/25 0840 atenolol (Tenormin) tablet 25 mg, 25 mg, Oral, BID, Tiarra Ruelas 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 - NUCLEAR PLANT INSTRUMENT TECHNICIAN, 25 mg at 01/27/25 0840 dextrose 5 % infusion, 100 mL/hr, IntraVENous, PRN, Tiarra Ruelas APRN - KYREE dextrose 50 % solution 12.5 g, 12.5 g, IntraVENous, PRN, Tiarra Ruelas 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 - NUCLEAR PLANT INSTRUMENT TECHNICIAN gabapentin (Neurontin) capsule 300 mg, 300 mg, Oral, BID, Tiarra Ruelas APRN - NUCLEAR PLANT INSTRUMENT TECHNICIAN, 300 mg at 01/27/25 0840 glucagon (human recombinant) injection 1 mg, 1 mg, IntraMUSCular, PRN, Tiarra Ruelas APRN - NUCLEAR PLANT INSTRUMENT TECHNICIAN glucose oral gel 15 g, 15 g, Oral, PRN, Tiarra Ruelas APRN - KYREE insulin glargine (Lantus) injection 32 Units, 32 Units, SubCUTAneous, Nightly, Tiarra Ruelas APRN - NUCLEAR PLANT INSTRUMENT TECHNICIAN, 32 Units at 01/26/25 2017 Insulin Lispro (Humalog) injection 0-12 Units, 0-12 Units, SubCUTAneous, TID WC, Tiarra Ruelas APRN - KYREE, 4 Units at 01/27/25 1203 Insulin Lispro (Humalog) injection 5 Units, 5 Units, SubCUTAneous, TID WC, Tiarra Ruelas APRN - NUCLEAR PLANT INSTRUMENT TECHNICIAN, 5 Units at 01/27/25 1203 Lactobacillus 0.05-0.05 MG 4 tablet, 4 tablet, Oral, Daily, Tiarra Ruelas APRN - [place]REE, 4 tabletat 01/27/25 0840 levothyroxine (Synthroid, Levoxyl) tablet 112 mcg, 112 mcg, Oral, qAM AC, Tiarra Ruelas APRN -KYREE, 112 mcg at 01/27/25 0558 metoprolol tartrate (Lopressor) injection 5 mg, 5 mg, IntraVENous, q6h PRN, PACO Arroyo CNP ondansetron ODT (Zofran-ODT) disintegrating tablet 4 mg, 4 mg, Oral, q8h PRN OR ondansetron (Zofran) injection 4 mg, 4 mg, IntraVENous, q6h PRN, Tiarra Ruelas APRN - KYREE piperacillin-tazobactam (Zosyn) 4,500 mg in sodium chloride 0.9 % 100 mL IVPB Mini-Bag Plus, 4,500 mg, IntraVENous, q6h, Ramiro Crawford MD, Last Rate: 33.3 mL/hr at 01/27/25 1203, 4,500 mg at 01/27/25 1203 polyethylene glycol (PEG) 3350 (Miralax) packet 17 g, 17 g, Oral, Daily PRN, ALEJANDRINA Arroyo CNP sodium chloride 0.9 % infusion, 5-250 mL/hr, IntraVENous, PRN, Sanjuanita Conley MD sodium chloride 0.9% (NS) flush 5-40 mL, 5-40 mL, IntraVENous, 2 times per day, Sanjuanita Conley MD, 10 mL at 01/26/25 1223 sodium chloride 0.9% (NS) flush 5-40 mL, 5-40 mL, IntraVENous, PRN, Sanjuanita Conley MD vancomycin IVPB 1250 mg in 250 mL NS (premix), 1,250 mg, IntraVENous, q24h, Ramiro Crawford MD, Stopped at 01/26/25 1729 [4] No family history on file. * Katey Beard MD - 01/27/2025 8:33 AM EDT Hospitalist Progress Note 01/27/2025 Subjective: Admit Date: 01/25/2025 PCP: Dorothy Medrano Room#: [id number] B BRIEF HOSPITAL COURSE: 84-year-old patient with history of DM2 with neuropathy, HTN, hyperlipidemia, AFib on Eliquis, hypothyroidism, and obesity presented to [facility] on January 25 with: Generalized malaise\\, elevated blood pressure reading, tachycardia and elevated blood glucose. Last hospital stay at [facility] on December 02, 2024, treated for acute metabolic encephalopathy and Klebsiella UTI. Son reported patient was well until few days prior. Right foot ulcer was healing, but missed last wound care appointment, last one was 2 weeks ago. Evaluation revealed: - Right lower extremity erythema, swelling, worsening foot wound - Orthopedic surgery performed bedside I&D 01/26, lactic acid 2.6-1.8 after treatment, WBC 27 improved to 19.4.BLE duplex ultrasound: WNL. BLE PVRs: WNL - Meeting sepsis criteria in setting of diabetic wound ulcer - AFib with RVR - Hyperglycemia 01/27 On evaluation in person, intermittent pain in left side but no overlying skin changes. Discussed with patient and family to monitor and we will do an x- ray tomorrow if still continues Interval History: No overnight issues. Case and plan discussed with patient and family at bedside. All questions answered. Adult diet Regular 24HR INTAKE/OUTPUT: Intake/Output Summary (Last 24 hours) at 01/27/2025 0833 Last data filed at 01/27/2025 0500 Gross per 24 hour Intake 1690 ml Output 825 ml Net 865 ml Past Medical History: Medical History[1] LABS: CBC: Recent Labs 01/25/25230501/26/25 1031 01/27/25 0051 WBC 27.0* 18.4* 19.4* RBC 4.22 3.76* 3.34* HGB 12.8 11.4* 10.1* HCT 38.6 37.3 31.5* MCV 91.5 99.2* 94.3 RDW 14.2 14.6 14.7 PLT 244 110* 165 BMP: Recent Labs 01/25/25230501/26/25 1031 01/27/25 0051 NA 139 135* 132* K 4.6 4.5 4.2 CL 105 107 106 CO2 22* 19* 18* BUN 43* 44* 36* CREATININE 1.45* 1.44* 1.25* GLUCOSE 351* 250* 136* CALCIUM 9.4 8.7* 8.7* ANIONGAP 12 9 8 LIVER PROFILE: Recent Labs 01/26/25 1031 AST 17 ALT 11 BILITOT 0.4 ALKPHOS 40 PROT 6.4 PT/INR: Recent Labs 01/26/25 2217 PROTIME 12.7* INR 1.2* CARDIAC ENZYMES: No results for input(s): "TROPONINI" in the last 72 hours. Procalcitonin: No results found for: "PROCAL" COVID-19 PCR: No results for input(s): "COVID19" in the last 72 hours. Objective: Vitals: BP 114/74 (BP Location: Left arm, Patient Position: Lying) Pulse 101 Temp 36.1 C (97 F)(Temporal) Resp 16 Ht 5' 10" (1.778 m) Wt 220 lb (99.8 kg) SpO2 95% BMI 31.57 kg/m Pulse Ox: SpO2 Av.4 % Min: 93 % Max: 97 % Supplemental O2: Physical Exam Vitals reviewed. Constitutional: General: She is not in acute distress. Appearance: She is not ill-appearing or toxic-appearing. HENT: Head: Normocephalic. Cardiovascular: Rate and Rhythm: Normal rate. Pulmonary: Effort: Pulmonary effort is normal. No respiratory distress. Musculoskeletal: Left lower leg: No edema. Comments: Right lower leg wrapped in Kerlix however some drainage noted on pad underneath foot somehyperpigmentation on left leg lower near ankle however no erythema or notable areas of fluctuance or tenderness Skin: General: Skin is warm. Neurological: Mental Status: She is alert. Psychiatric: Mood and Affect: Mood normal. Behavior: Behavior normal. Thought Content: Thought content normal. Judgment: Judgment normal. Medications: Scheduled PRN Scheduled Meds[2] PRN Meds[3] Continuous Continuous Meds[4] Assessment Data: (LOW: 2x CAT1 or independent historian MOD: 3x CAT1 or 1x CAT3 EXTENSIVE: 3x CAT1 and 1x CAT3) Acute, acute on chronic, unstable/uncontrolled chronic problems/diagnoses: Sepsis secondary to diabetic foot wound Lactic acidosis resolved A-fib with RVR improved in the setting of sepsis, Hyperglycemia in the setting of type 2 diabetes Stable chronic problems affecting care, new non-acute diagnoses: DM2, neuropathy, HTN, hyperlipidemia, AFib, hypothyroidism, obesity. Plan As a result of the above findings & factors, the following mgmt was pursued: Sepsis 2 to infected diabetic foot ulcer - RLE erythema, swelling, worsening foot wound. Met sepsis criteria. Ortho performed bedside I&D. Lactic acid improved from 2.6 to 1.8. WBC down from 27 to 19.4 with bands. - Continue broad-spectrum antibiotics - Antibiotic stewardship recommending discontinuing Zosyn and changing to Unasyn, continue Vanc - Await cultures to narrow therapy - Monitor lactic acid and WBC - Continue wound care NAYELY on CKD 3a -Baseline creatinine 1.04-1.2 - On admission serum creatinine 1.45 slowly improving to baseline at 1.256/18 AFib with RVR -Hx of AFib. Tachycardia on admission, since improved. - Continue Eliquis for anticoagulation, continuing other home medications including atenolol - Monitor HR and rhythm especially in the setting of sepsis Hyperglycemia in type II diabetic - Continue treatment currently on her Lantus 32 units nightly, mealtime insulin 5 units 3 times daily and sliding scale - Monitor blood glucose HTN - Hx of HTN with elevated BP readings. - Monitor BP - Adjust antihypertensives as needed Hypothyroidism - Continue patient's home levothyroxine - am labs, replace lytes prn - PT/OT/CM/SW - delirium precautions: increase activity - DVT prophylaxis: encourage ambulation and already anticoagulated Complexity: Chronic illness with severe exacerbation, progression, or side effect of tx (HIGH). Risk: Admission to hospital-level care was considered or occurred (HIGH). Consult to surgery for emergency major surgery, or major surgery with identified patient or procedural risk factors, was considered or occurred (HIGH). Advance Directive: Full Code Anticipated Discharge - Date - 01/31 - Location -TBD Home with home health versus SNF - Pending the following -improvement of acute medical issue Total time spent (which include face to face and non face to face encounters) : 55 minutes Toxic drug monitoring/narrow therapeutic index drug monitoring : # Drug name : Not applicable # Route administered : NA # Method of monitoring : NA Extended Emergency Contact Information Primary Emergency Contact: Hi Nelson Relation: Son Preferred language: Burmese Metal Bumper needed? No Secondary Emergency Contact: Melba [facility] Mobile Relation: Daughter Comment: Please note that portions of the note for this encounter were entered using an speech recognition software and may contain errors related to that system including errors in grammar, punctuation, and spelling, as well as words and phrases that may be inappropriate. Best attempts were made to edit/proofread the information prior to note completion. Despite the review of information, some errors may remain. If there are questions related to the information contained within the note pleasecontact the signing provider for clarification. Katey Beard MD Division of Hospitalist Medicine [facility] [1] Past Medical History: Diagnosis Date Atrial fibrillation (HCC) Diabetes mellitus (HCC) Hyperlipidemia Hypertension Hypothyroidism Neuropathy [2] apixaban, 5 mg, Oral, BID atenolol, 25 mg, Oral, BID gabapentin, 300 mg, Oral, BID insulin glargine, 32 Units, SubCUTAneous, Nightly insulin lispro, 0-12 Units, SubCUTAneous, TID WC insulin lispro, 5 Units, SubCUTAneous, TID WC Lactobacillus, 4 tablet, Oral, Daily levothyroxine, 112 mcg, Oral, qAM AC piperacillin-tazobactam, 4,500 mg, IntraVENous, q6h sodium chloride 0.9%, 5-40 mL, IntraVENous, 2 times per day vancomycin, 1,250 mg, IntraVENous, q24h [3] PRN medications: acetaminophen OR acetaminophen, dextrose, dextrose, glucagon (rDNA), glucose, metoprolol, ondansetron ODT OR ondansetron, polyethylene glycol (PEG) 3350, sodium chloride,sodium chloride 0.9% [4] * Philly Pena, RyanD - 01/27/2025 7:30 AM EDT Pharmacy to Dose Vancomycin - Progress Note Lab Results Component Value Date CREATININE 1.25 (H) 01/27/2025 BUN 36 (H) 01/27/2025 WBC 19.4 (H) 01/27/2025 VANCOTROUGH 11.6 01/27/2025 Doses, serum creatinine, and vancomycin levels interfaced automatically to [employer] and data has been analyzed and interpreted. Infectious Diagnosis: SSTI/sepsis Est CrCl: 51 mL/min (Cockcroft-Gault) Assessment: Current regimen vancomycin 1250 mg every 24 hours (12.5 mg/kg) Predicted AUC = 559 mg/L*hr (goal 400-600 mg/L*hr) PAUC = 95% (probability that AUC is >400 mg/L*hr) Pconc = 29% (probability that Ctrough is above 20 mcg/mL (toxicity)) Plan: Is the current dose therapeutic? [x] Yes - obtain next level on 01/29 unless predicted AUC is sub-/supra-therapeutic or change in serum creatinine. Trend serum creatinine. Trend AUC using Bayesian Modeling. Orders placed. DATE: 01/27/25 TIME: 7:27 AM Philly Pena PharmD Clinical Pharmacist Available via Secure Chat * Prachi Victoria MD - 01/26/2025 9:54 PM EDT Orthopedic Surgery Progress Note MRI right foot: Small rim enhancing fluid collection in the subcutaneous tissues located plantar tothe first MTPJ. Diffuse subcutaneous edema, no significant bony edema. Severe degenerative changes consistent with PMHx of charcot arthropathy. No acute fractures or dislocations. Procedure: Bedside I and D of subcutaneous tissues of right plantar foot abscess. Verbal consent was obtained prior to the procedure. Patient has dense neuropathy of right foot and did not require further intervention for adequate analgesia. The skin was thoroughly cleansed with betadine and the necrotic tissue and callus on the medial side of the plantar foot was debrided, then a 3cm incision was made along the center of the area of fluctuance. No purulent fluid was present, only bloody fluid.Aerobic and anerobic cultures were obtained. A hemostat was then used to dissect the overlying tissue and 500cc of NS was used to thoroughly irrigate and debride the affected extremity.The site was then packed with cotton packing. The patient was wrapped in a sterile dressing. The patient toleratedthe procedure well. ASSESSMENT AND PLAN: This is a 84 y.o. female with BLE charcot arthropathy who is now s/p right foot abscess bedside I&D on 01/26. -No plan for further procedural intervention. -Will plan to recheck right foot wound tomorrow. -Wound care consulted. Following evaluation tomorrow will plan for continued wound management per wound care team. -Wound cultures sent -NWB RLE -PT/OT -Ok for anticoagulation, DVT ppx per primary team ultimately -Ice and elevate -Medical management & pain control per primary -F/u Dr Alas at discharge -Ortho to follow. Please page orthopedic resident vp information technology with questions or concerns. Prachi Victoria MD Orthopedic Surgery PGY-2 01/26/2025 at 10:10 PM * Jimmie Ramires, RyanD - 01/26/2025 12:30 PM EDT Images from the original note were not included. Pharmacy Managed Vancomycin Dosing Service Consult Note Consult Date: 01/26/25 Patient Name: Hanna Nelson Allergies: Tape Age: 84 y.o. Sex: female Estimated body mass index is 29.79 kg/m as calculated from the following: Height as of this encounter: 1.778 m (5' 10"). Weight as of this encounter: 94.2 kg (207 lb 9.6 oz). DW: 94.2 kg Lab Results Component Value Date CREATININE 1.44 (H) 01/26/2025 CREATININE 1.45 (H) 01/25/2025 BUN 44 (H) 01/26/2025 BUN 43 (H) 01/25/2025 WBC 18.4 (H) 01/26/2025 WBC 27.0 (H) 01/25/2025 Calculated CrCl: 35.5 mL/min (Cockcroft-Gault) Consulted By: Ramiro Crawford Infectious Diagnosis: SSTI/Sepsis (AUC Goal 400-600 mg/L*hr) Random Vancomycin Level Due: 01/27 Antimicrobials: Patient recently received an antibiotic (last 12 hours) Date/Time Action Medication Dose Rate 01/26/25 1206 New Bag cefTRIAXone (Rocephin) 2,000 mg in sodium chloride 0.9 % 50 mL IVPB Mini-Bag Plus 2,000 mg 100 mL/hr Assessment/Plan: Doses, serum creatinine, and vancomycin levels interfaced automatically to [employer] and data has been analyzed and interpreted. Start Vancomycin 1250 mg every 24 hours based on patient age, weight, renal function, and infectious diagnosis (13.3 mg/kg). Predicted AUC = 564 mg/L*hr (goal 400-600 mg/L*hr) PAUC = 90% (probability that AUC is >400 mg/L*hr) Pconc = 32% (probability that Ctrough is above 20 mcg/mL (toxicity)) Will assess AUC level on 01/27 and adjust as appropriate. Trend serum creatinine. Orders placed. Thank you for this consult. Please secure text or call with questions. DATE: 01/26/25 TIME: 12:28 PM Jimmie Ramires PharmD Clinical Pharmacist Available via Secure Chat documented in this [facility]06-24-2025 Note* Care Coordination - Mag Chaney RN - 02/02/2025 12:23 PM EDT Being discharged to [facility] today. Family is aware. . [facility] [id number] Note* Care Coordination - Mag Chaney RN - 02/02/2025 12:23 PM EDT Being discharged to [facility] today. Family is aware. . [facility] [id number] Miscellaneous Notes* Care Coordination - Mag Allen RN - 02/02/2025 12:23 PM EDT Being discharged to [facility] today. Family is aware. . * Care Coordination - Unknown Case Management - 02/02/2025 12:10 PM EDT Patient Choice Patient Name: HANNA NELSON Date of : 1940 Share Number: 0 Method of Sharing: electronic Date of Sharin2025-01-31 12:46:42.000 Responding Recipient: [email or web address] Ranked Providers Sent Referral Rank: 2 Name: [employer] Phone: [phone] Address: [address] [place] [address] Rank: 1 Name: [employer] Phone: [phone] Address: [address] [place] [address] Rank: 3 Name: [facility] Phone: [phone] Address: [address] [place] [address] All Providers Sent Referral Name: Naartjie Phone: [phone] Address: [address] [place], [place] [id number] Name: [facility] Phone: [phone] Address: [address] [place] [address] Name: [facility] Phone: [phone] Address: [address] [place] [address] * Care Coordination - Sebastián Melvin - 02/02/2025 12:09 PM EDT MAR & Discharge med list transmitted to [facility] via Careport per TCC request. 7000 created in HENS per TCC request. Facility notified via Careport. * Care Coordination - Sebastián Melvin - 02/02/2025 11:03 AM EDT Transport requested in Roundtrip. Awaiting time confirmation. Confirmed pickup time of 2:30PM by transport [employer] at phone number . Location of facility drop off is [facility]. Facility notified via Mag Paz- Alejandro notified on secure chat. * Care Plan - Tiarra Ross RN - 02/01/2025 10:43 PM EDT Problem: Knowledge Deficit Goal: Patient/family/caregiver demonstrates understanding of disease process, treatment plan, medications, and discharge instructions Outcome: Progressing Problem: Potential for Compromised Skin Integrity Goal: Skin Integrity is Maintained or Improved Outcome: Progressing Goal: Nutritional status is improving Outcome: Progressing Problem: Urinary Incontinence Goal: Perineal skin integrity is maintained or improved Outcome: Progressing Problem: Problem Interventions Goal: Assess Nutritional Intake Outcome: Progressing * Care Coordination - Mag Chaney RN - 02/01/2025 12:37 PM EDT [facility] able to accept pt, That is facility of choice. Will discharge there when stable.. * Home Care - Chas Graza RN - 02/01/2025 11:17 AM EDT Plan is placement at discharge. Home care to sign off. Please re-consult if a home care need arises. * Care Plan - Kyara Blanco RN - 01/31/2025 9:03 PM EDT Problem: Knowledge Deficit Goal: Patient/family/caregiver demonstrates understanding of disease process, treatment plan, medications, and discharge instructions Outcome: Progressing Problem: Potential for Compromised Skin Integrity Goal: Skin Integrity is Maintained or Improved Outcome: Progressing Goal: Nutritional status is improving Outcome: Progressing Problem: Urinary Incontinence Goal: Perineal skin integrity is maintained or improved Outcome: Progressing Problem: Problem Interventions Goal: Assess Nutritional Intake Outcome: Progressing * Care Coordination - Miesha Pichardo RN - 01/31/2025 2:12 PM EDT Care Management Progress Note 01/31/25 1411 Rapid Rounds Attendance Web Page Developer;Physician Planned Discharge Disposition SNF Confirmed with Spoke with son Hi, discussed discharge planning, SNF list provided and choices obtained. Referrals placed in careport. [facility] Other back up choices are [place] and [place]. Hi declined [facility] as an option. Today we still await Post-discharge arrangement completion (facility acceptance and bed available) Attending completion of discharge workflow Length of Stay (Days): 5 GMLOS: 3.5 * Care Plan - Carmen Fong RN - 01/31/2025 10:07 AM EDT Problem: Knowledge Deficit Goal: Patient/family/caregiver demonstrates understanding of disease process, treatment plan, medications, and discharge instructions Outcome: Progressing Flowsheets (Taken 01/31/2025 100) Patient/family/caregiver demonstrates understanding of disease process, treatment plan, medications, and discharge instructions: Complete learning assessment and assess knowledge base Provide teaching via preferred learning methods Provide teaching at level of understanding Problem: Potential for Compromised Skin Integrity Goal: Skin Integrity is Maintained or Improved Outcome: Progressing Flowsheets (Taken 01/31/20251005) Skin integrity is maintained or improved: Assess and monitor skin integrity Collaborate with interdisciplinary team and initiate plans and interventions as needed Relieve pressure to bony prominences Keep skin clean and dry Encourage use of lotion/moisturizer on skin Identify patients at risk for skin breakdown on admission and per policy Turn patient Avoid shearing Alternate a full bath with partial baths for elderly Monitor patient's hygiene practices Goal: Nutritional status is improving Outcome: Progressing Flowsheets (Taken 01/31/20251005) Nutritional status is improving: Monitor and assess patient for malnutrition (ex- brittle hair, bruises, dry skin, pale skin and conjunctiva, muscle wasting, smooth red tongue, and disorientation) Collaborate with interdisciplinary team and initiate plan and interventions as ordered Monitor patient's weight and dietary intake as ordered or per policy Utilize nutrition screening tool and intervene per policy Determine patient's food preferences and provide high-protein, high-caloric foods as appropriate Assist patient with eating Allow adequate time for meals Encourage patient to take dietary supplement as ordered Collaborate with clinical therapist speech Problem: Urinary Incontinence Goal: Perineal skin integrity is maintained or improved Outcome: Progressing Flowsheets (Taken 01/31/20251005) Perineal skin integrity is maintained or improved: Assess genitourinary system, perineal skin, labs (urinalysis), and history of incontinence to include past management, aggravating, and alleviating factors Collaborate with interdisciplinary team including wound, ostomy, and continence nurse and initiate plans and interventions as needed Keep skin clean and dry Apply urine containment device Apply skin protectant * Care Plan - Marietta Mix RN - 01/31/2025 5:49 AM EDT Problem: Potential for Compromised Skin Integrity Goal: Skin Integrity is Maintained or Improved Outcome: Progressing Problem: Problem Interventions Goal: Assess Nutritional Intake Outcome: Progressing * Care Plan - Jacquelin Akers RN - 01/30/2025 2:55 PM EDT Problem: Knowledge Deficit Goal: Patient/family/caregiver demonstrates understanding of disease process, treatment plan, medications, and discharge instructions Outcome: Progressing Problem: Potential for Compromised Skin Integrity Goal: Skin Integrity is Maintained or Improved Outcome: Progressing Goal: Nutritional status is improving Outcome: Progressing Problem: Urinary Incontinence Goal: Perineal skin integrity is maintained or improved Outcome: Progressing Problem: Problem Interventions Goal: Assess Nutritional Intake Outcome: Progressing * Care Plan - Aditi Suosa RN - 01/30/2025 5:23 AM EDT Problem: Knowledge Deficit Goal: Patient/family/caregiver demonstrates understanding of disease process, treatment plan, medications, and discharge instructions Outcome: Progressing Problem: Potential for Compromised Skin Integrity Goal: Skin Integrity is Maintained or Improved Outcome: Progressing Goal: Nutritional status is improving Outcome: Progressing Problem: Urinary Incontinence Goal: Perineal skin integrity is maintained or improved Outcome: Progressing Problem: Problem Interventions Goal: Assess Nutritional Intake Outcome: Progressing * Care Plan - Radha Boland RN - 01/29/2025 6:49 PM EDT Problem: Knowledge Deficit Goal: Patient/family/caregiver demonstrates understanding of disease process, treatment plan, medications, and discharge instructions Outcome: Progressing Problem: Potential for Compromised Skin Integrity Goal: Skin Integrity is Maintained or Improved Outcome: Progressing Goal: Nutritional status is improving Outcome: Progressing Problem: Urinary Incontinence Goal: Perineal skin integrity is maintained or improved Outcome: Progressing Problem: Problem Interventions Goal: Assess Nutritional Intake Outcome: Progressing * Home Care - Chas Garza RN - 01/29/2025 2:52 PM EDT Spoke with patient directly regarding home care options. We discussed her daily dressing changes, and patient states she lives alone and cannot do them herself. I explained nursing for home care would only be out 1-2X a week maximum, so she would be responsible for dressing changes all other days of the week. Patient states she does not think her children would be willing to help, but gives permission to the [facility] to reach out to them. HIPAA compliant message left for patient's daughter. I explained to the patient that home care would require a teachable rn progressive care as they need to ensure she isreceiving the ordered treatment for her wound. She stated she understood, but did not seem to want p lacement as an alternative at this time. TCC notified. Communication Professor following case for Discharge Needs. * Care Coordination - Mag Chaney RN - 01/29/2025 12:09 PM EDT Spoke with pt about SNF and [facility]. She states she is going home with [facility].. * Care Coordination - Mag Chaney RN - 01/29/2025 12:00 PM EDT Care Management Progress Note Continues on IV antibiotics for surgical site infection. PT recommends SNF, will see if she wants to go. . Length of Stay (Days): 3 GMLOS: 3.5 * Care Plan - Elda Pearson RN - 01/29/2025 12:10 AM EDT Problem: Knowledge Deficit Goal: Patient/family/caregiver demonstrates understanding of disease process, treatment plan, medications, and discharge instructions Outcome: Progressing Problem: Potential for Compromised Skin Integrity Goal: Skin Integrity is Maintained or Improved Outcome: Progressing Goal: Nutritional status is improving Outcome: Progressing Problem: Urinary Incontinence Goal: Perineal skin integrity is maintained or improved Outcome: Progressing Problem: Problem Interventions Goal: Assess Nutritional Intake Outcome: Progressing * Care Coordination - Mga Chaney RN - 01/28/2025 10:59 AM EDT Care Management Progress Note Continues on IV antibiotics. Ortho has signed off. No osteo in hip. Need PT and OT to eval. May have needs.. Length of Stay (Days): 2 GMLOS: 3.5 * Care Plan - Aditi Sousa RN - 01/28/2025 3:55 AM EDT Problem: Knowledge Deficit Goal: Patient/family/caregiver demonstrates understanding of disease process, treatment plan, medications, and discharge instructions 01/28/2025354 by Aditi Sousa RN Outcome: Progressing 01/27/20252252 by Aditi Sousa RN Outcome: Progressing Problem: Potential for Compromised Skin Integrity Goal: Skin Integrity is Maintained or Improved 01/28/2025354 by Aditi Sousa RN Outcome: Progressing 01/27/2025 2253 by Aditi Sousa RN Outcome: Progressing Goal: Nutritional status is improving 01/28/2025354 by Aditi Sousa RN Outcome: Progressing 01/27/20252252 by Aditi Sousa RN Outcome: Progressing Problem: Urinary Incontinence Goal: Perineal skin integrity is maintained or improved 01/28/2025354 by Aditi Sousa RN Outcome: Progressing 01/27/20252252 by Aditi Sousa RN Outcome: Progressing Problem: Problem Interventions Goal: Assess Nutritional Intake 01/28/2025354 by Aditi Sousa RN Outcome: Progressing 01/27/20252252 by Aditi Sousa RN Outcome: Progressing * Care Plan - Aditi Sousa RN - 01/27/2025 10:53 PM EDT Problem: Knowledge Deficit Goal: Patient/family/caregiver demonstrates understanding of disease process, treatment plan, medications, and discharge instructions Outcome: Progressing Problem: Potential for Compromised Skin Integrity Goal: Skin Integrity is Maintained or Improved Outcome: Progressing Goal: Nutritional status is improving Outcome: Progressing Problem: Urinary Incontinence Goal: Perineal skin integrity is maintained or improved Outcome: Progressing Problem: Problem Interventions Goal: Assess Nutritional Intake Outcome: Progressing * Care Coordination - Mag Chaney RN - 01/27/2025 12:49 PM EDT Care Management Progress Note Continues on IV antibiotics for soft tissue infection. Has a R non healing foot ulcer. I and D sonelast night, Sight with dressing changes. Wound Care to see. Asked for PT and OT orders, may need SNF vs HHC. . Length of Stay (Days): 1 GMLOS: No GMLOS Documented * Care Plan - Jorge Dover RN - 01/27/2025 12:05 AM EDT Problem: Knowledge Deficit Goal: Patient/family/caregiver demonstrates understanding of disease process, treatment plan, medications, and discharge instructions Outcome: Progressing Problem: Potential for Compromised Skin Integrity Goal: Skin Integrity is Maintained or Improved Outcome: Progressing * Care Plan - Mone Gibson RN - 01/26/2025 6:57 PM EDT Problem: Knowledge Deficit Goal: Patient/family/caregiver demonstrates understanding of disease process, treatment plan, medications, and discharge instructions Outcome: Progressing * Care Coordination - MEREDITH Tidwell - 01/26/2025 1:52 PM EDT Copy of DPOA found in electronic record naming sonHi as [id number] * Care Coordination - Mag Chaney RN - 01/26/2025 11:18 AM EDT Pt came to ER with c/o generalized illness. BP, BR and BS are all up. Started on IV antibiotics forskin infection. Needs a vascular US. Wants to go home, will follow for needs... documented in this [facility]06-24-2025 Note* Care Coordination - Unknown Case Management - 02/02/2025 12:10 PM EDT Patient Choice Patient Name: HANNA NELOSN Date of : 1940 Share Number: 0 Method of Sharing: electronic Date of Sharin2025-01-31 12:46:42.000 Responding Recipient: [email or web address] [email or web address] Sent Referral Rank: 2 Name: [facility] [employer] Phone: [phone] Address: [address] [place], [place] [address] [address] Rank: 1 Name: [facility] [employer] Phone: [phone] Address: [address] [place] [address] Rank: 3 Name: [facility] Phone: [phone] Address: [address] [place], [place] [id number] All Providers Sent Referral Name: [facility] [employer] Phone: [phone] Address: [address] [place] [address] [place] [address] Name: [facility] [employer] Phone: [phone] Address: [address] [place] [address] Name: [facility] Phone: [phone] Address: [address] [place] [address] [facility] [id number] Note* Care Coordination - Unknown Case Management - 02/02/2025 12:10 PM EDT Patient Choice Patient Name: HANNA NELSON Date of : 1940 Share Number: 0 Method of Sharing: electronic Date of Sharin2025-01-31 12:46:42.000 Responding Recipient: [email or web address] [email or web address] Providers Sent Referral Rank: 2 Name: Naartjie Phone: [phone] Address: [address] [place], [place] [address] [id number] Rank: 1 Name: [employer]. Phone: [phone] Address: [address] [place] [address] Rank: 3 Name: [facility] Phone: [phone] Address: [address] [place], [place] [id number] All Providers Sent Referral Name: [facility] Phone: [phone] Address: [address] [place] [address] Name: [facility] Phone: [phone] Address: [address] [place] [address] Name: [facility] Phone: [phone] Address: [address] [place] [address] [facility] [id number] Note* Care Coordination - Sebastián Melvin - 02/02/2025 12:09 PM EDT MAR & Discharge med list transmitted to [facility] via Careport per TCC request. [id number] created in HENS per TCC request. Facility notified via [employer]Omada. [facility] [id number] Note* Care Coordination - Sebastián Melvin - 02/02/2025 12:09 PM EDT MAR & Discharge med list transmitted to [facility] via Careport per TCC request. [id number] created in HENS per TCC request. Facility notified via Careport. [facility] [id number] Note* Care Coordination - Sebastián Melvin - 02/02/2025 11:03 AM EDT Transport requested in Roundtrip. Awaiting time confirmation. Confirmed pickup time of 2:30PM by transport [employer] at phone number . Location of facility drop off is [facility]. [facility],Mag Allen notified on secure chat. [facility] [id number] Note* Care Coordination - Sebastián Melvin - 02/02/2025 11:03 AM EDT Transport requested in Roundtrip. Awaiting time confirmation. Confirmed pickup time of 2:30PM by transport company [employer] at phone number . Location of facility drop off is [facility]. Facility notified via Careport,Mag Hari Alejandro notified on secure chat. [facility] [id number] Plan of care note* Care Plan - Tiarra Ross RN - 02/01/2025 10:43 PM EDT Problem: Knowledge Deficit Goal: Patient/family/caregiver demonstrates understanding of disease process, treatment plan, medications, and discharge instructions Outcome: Progressing Problem: Potential for Compromised Skin Integrity Goal: Skin Integrity is Maintained or Improved Outcome: Progressing Goal: Nutritional status is improving Outcome: Progressing Problem: Urinary Incontinence Goal: Perineal skin integrity is maintained or improved Outcome: Progressing Problem: Problem Interventions Goal: Assess Nutritional Intake Outcome: Progressing [id number] [facility]06-23-[facility]25 Hospital course Narrative* Katey Beard MD - 02/01/2025 12:41 PM EDT Hospitalist Discharge Summary Hanna Nelson : 1940 Admit date: 01/25/2025 Discharge date: 02/01/2025 Admitting Physician: Patel Can MD Primary Care Physician: Dorothy Medrano Visit Status: IP Code Status: Full Code BRIEF HOSPITAL COURSE: 84-year-old patient with history of DM2 with neuropathy, HTN, hyperlipidemia, AFib on Eliquis, hypothyroidism, and obesity presented to [facility] on January [facility] with: Generalized malaise, elevated blood pressure reading, tachycardia and elevated blood glucose. Last hospital stay at [facility] on December 02, 2024, treated for acute metabolic encephalopathy and Klebsiella UTI. Son reported patient was welluntil few days prior. Right foot ulcer was healing, but missed last wound care appointment, last one was [facility] [employer]. While admitted, orthopedic surgery did bedside I&D 01/26. lactic acid 2.6-1.8 after treatment, WBC 27 improved to 19.4.BLE duplex ultrasound: WNL. BLE PVRs: WNL Right femur x-ray (01/27/2025): Patient is status post long right femur cephalomedullary nail. Thereare moderate-severe degenerative changes of the right knee. There is no evidence of loosening or failure. MRI right foot no concern for osteomyelitis MRI Right Hip (01/28/25): No acute fractures. Study limited by previous right hip CMN. There is significant artifact from the CMN. There is no obvious fluid collections, no enhancement within the femur, or rim-enhancing fluid collections concerning for abscess. No obvious myositis soft tissue edemaconcerning for cellulitis. Dispo planning discussed with son 01/30, like to go home with home health as well as home PT and OT.Will coordinate with family after the weekend to ensure that they have resources of the need especially for wound dressings. 02/01 awaiting decision for SNF selection. Approved at [facility], able to accept pt, That is facility of choice as well. FACILITY REQ DISCHARGE 02/02. All orders in Acute, acute on chronic, unstable/uncontrolled chronic problems/discharge diagnoses: Severe Sepsis secondary to diabetic foot wound Demand ischemia without an acute MO NAYELY on CKD stage II-baseline creatinine of 1.04-1.2 up to 1.4 on admissoin A-fib with RVR Type 2 diabetes with hyperglycemia Stable chronic problems affecting care, new non-acute discharge diagnoses: Hypertension Hypothyroidism Medical History[1] Procedures: as above Hospital Course: See discharge diagnoses list above and medication adjustments below in med rec.Thepatient is discharged in improved and stable condition. Consults: IP CONSULT TO WOUND PREVENTION INPATIENT CONSULT TO WOUND CARE PROVIDERS IP CONSULT TO ORTHOPAEDIC SURGERY Discharge Instructions: Diet: Dietary Orders (From admission, onward) Start Ordered 01/27/25 171 Supplement:Dinner, Lunch; Fruit Punch Jamie Until discontinued Question Answer Comment Frequency Dinner Frequency Lunch Select supplement: Fruit Punch Jamie 01/27/25 17101/27/25 171 Adult diet Regular; 4 carb choices (60 gm/meal) Diet effective now Question Answer Comment Diet type Regular Carbohydrate restriction: 4 carb choices (60 gm/meal) 01/27/25 171 Activity: as tolerated Recommended Outpatient Tests: Disposition: Patient discharged in stable condition to SNF. Greater than 31 minutes spent discharging the patient and coming up with patient discharge plan. Vitals: BP 148/90 (BP Location: Left arm, Patient Position: Lying) Pulse 82 Temp 36.5 C (97.7 F) (Temporal) Resp 18 Ht 5' 10" (1.778 m) Wt 215 lb 4.8 oz (97.7 kg) SpO2 97% BMI 30.89 kg/m Pulse Ox: SpO2 Av.3 % Min: 95 % Max: 97 % Supplemental O2: Physical Exam Vitals reviewed. Constitutional: General: She is not in acute distress. Appearance: She is not ill-appearing or toxic-appearing. Cardiovascular: Rate and Rhythm: Normal rate. Pulmonary: Effort: Pulmonary effort is normal. No respiratory distress. Musculoskeletal: Right lower leg: No edema. Left lower leg: No edema. Comments: Right foot clean dry and intact dressing Neurological: Mental Status: She is alert. Psychiatric: Mood and Affect: Mood normal. Behavior: Behavior normal. Thought Content: Thought content normal. Judgment: Judgment normal. LABS: Recent Labs 01/31/25 1043 NA 139 K 3.7 CL 107 CO2 20* BUN 27* CREATININE 1.04 GLUCOSE 205* CALCIUM 9.4 Recent Labs 01/31/25 1336 WBC 8.3 RBC 3.78* HGB 11.4* HCT 34.7* MCV 91.8 MCH 30.2 MCHC 32.9 RDW 14.1 PLT 283 MPV 10.2 Discharge Medications: Medication List START taking these medications Insulin Lispro 100 UNIT/ML solution injection Commonly known as: Humalog Inject 8 Units under the skin 3 times daily (with meals). Lactobacillus 0.05-0.05 MG tablet Take 4 tablets by mouth daily. Start taking on: February 02, 2025 CONTINUE taking these medications Alcohol Prep 70 % pads 1 Pad 3 times daily. atenolol 25 MG tablet Commonly known as: Tenormin Take 1 tablet (25 mg) by mouth 2 times daily. Blood Glucose Monitor System w/Device kit Check glucose 3x daily Eliquis 5 MG tablet Generic drug: apixaban FreeStyle Javier 3 Plus Sensor misc 1 each every 15 days. gabapentin 300 MG capsule Commonly known as: Neurontin glucose blood test strip Use as instructed insulin glargine 100 UNIT/ML injection Commonly known as: Lantus Inject 32 Units under the skin Nightly. Lancets Check glucose x3 daily levothyroxine 112 MCG capsule Commonly known as: Tirosint metFORMIN 500 MG tablet Commonly known as: Glucophage Take 1 tablet (500 mg) by mouth 2 times daily (with meals). oxybutynin 5 MG tablet Commonly known as: Ditropan semaglutide 2 MG/3ML solution pen-injector Commonly known as: Ozempic Inject 0.5 mg under the skin 1 (one) time per week. STOP taking these medications atorvastatin 40 MG tablet Commonly known as: Lipitor ciprofloxacin 250 MG tablet Commonly known as: Cipro fenofibrate 160 MG tablet Commonly known as: Triglide Tresiba FlexTouch 100 UNIT/ML injection Generic drug: insulin degludec Where to Get Your Medications Information about where to get these medications is not yet available Ask your nurse or doctor about these medications Insulin Lispro 100 UNIT/ML solution injection Lactobacillus 0.05-0.05 MG tablet Recommended Follow-up: Nba Gorman MD [address] [place] [address] [place] [id number] Follow up As needed, recommend follow up with Dr. Alas [facility] - [address] [id number] Complexity of Follow up: [] Moderate Complexity: follow up within 7-14 calendar days (07295) [x] Severe Complexity: follow up within 7 calendar days (94475) Follow up Testing, Pending results or Referrals at Transitional Care Visit: [x] yes [] no Instructions to MA: Please call patient on day after discharge (must document patient contacted within 2 business days of discharge). Follow up questions for MA: 1. Did you get medications filled and taking them as instructed from discharge? 2. Are you following your discharge instructions from your hospital stay? 3. Please confirm patient is scheduled for a follow up appointment within the above time frame. Signed: Katey Beard MD Division of Hospitalist Medicine [facility] 02/01/2025, 3:09 PM [1] Past Medical History: Diagnosis Date Atrial fibrillation (HCC) Diabetes mellitus (HCC) Hyperlipidemia Hypertension Hypothyroidism Neuropathy documented in this [facility]06-23-2025 Note* Care Coordination - Mag Chaney RN - 02/01/2025 12:37 PM EDT [facility] able to accept pt, That is facility of choice. Will discharge there when stable.. [facility] [id number] Note* Care Coordination - Mag Chaney RN - 02/01/2025 12:37 PM EDT [facility] able to accept pt, That is facility of choice. Will discharge there when stable.. [facility] [id number] Note* Home Care - Chas Garza RN - 02/01/2025 11:17 AM EDT Plan is placement at discharge. Home care to sign off. Please re-consult if a home care need arises. [facility] [id number] Note* Home Care - Chas Garza RN - 02/01/2025 11:17 AM EDT Plan is placement at discharge. Home care to sign off. Please re-consult if a home care need arises. [facility] [id number] Plan of care note* Care Plan - Kyara Blanco RN - 01/31/2025 9:03 PM EDT Problem: Knowledge Deficit Goal: Patient/family/caregiver demonstrates understanding of disease process, treatment plan, medications, and discharge instructions Outcome: Progressing Problem: Potential for Compromised Skin Integrity Goal: Skin Integrity is Maintained or Improved Outcome: Progressing Goal: Nutritional status is improving Outcome: Progressing Problem: Urinary Incontinence Goal: Perineal skin integrity is maintained or improved Outcome: Progressing Problem: Problem Interventions Goal: Assess Nutritional Intake Outcome: Progressing [facility] [id number] Note* Care Coordination - Miesha Pichardo RN - 01/31/2025 2:12 PM EDT Care Management Progress Note 01/31/25 1411 Rapid Rounds Attendance Web Page Developer;Physician Planned Discharge Disposition SNF Confirmed with Spoke with son Hi, discussed discharge planning, SNF list provided and choices obtained. [facility] Other back up choices are [place] and [place]. Hi declined [facility] as an option. Today we still await Post-discharge arrangement completion (facility acceptance and bed available) Attending completion of discharge workflow Length of Stay (Days): 5 GMLOS: 3.5 [facility] [id number] Note* Care Coordination - Miesha Pichardo RN - 01/31/2025 2:12 PM EDT Care Management Progress Note 01/31/25 1411 Rapid Rounds Attendance Web Page Developer;Physician Planned Discharge Disposition SNF Confirmed with Spoke with son Hi, discussed discharge planning, SNF list provided and choices obtained. Referrals placed in [facility]. F[facility] is [facility] Other back up choices are [place] and [place]. Hi declined [facility] as an option. Today we still await Post-discharge arrangement completion (facility acceptance and bed available) Attending completion of discharge workflow Length of Stay (Days): 5 GMLOS: 3.5 [facility] [id number] Plan of care note* Care Plan - Carmen Fong RN - 01/31/2025 10:07 AM EDT Problem: Knowledge Deficit Goal: Patient/family/caregiver demonstrates understanding of disease process, treatment plan, medications, and discharge instructions Outcome: Progressing Flowsheets (Taken 01/31/2025 1006) Patient/family/caregiver demonstrates understanding of disease process, treatment plan, medications, and discharge instructions: Complete learning assessment and assess knowledge base Provide teaching via preferred learning methods Provide teaching at level of understanding Problem: Potential for Compromised Skin Integrity Goal: Skin Integrity is Maintained or Improved Outcome: Progressing Flowsheets (Taken 01/31/2025 1006) Skin integrity is maintained or improved: Assess and monitor skin integrity Collaborate with interdisciplinary team and initiate plans and interventions as needed Relieve pressure to bony prominences Keep skin clean and dry Encourage use of lotion/moisturizer on skin Identify patients at risk for skin breakdown on admission and per policy Turn patient Avoid shearing Alternate a full bath with partial baths for elderly Monitor patient's hygiene practices Goal: Nutritional status is improving Outcome: Progressing Flowsheets (Taken 01/31/2025 1006) Nutritional status is improving: Monitor and assess patient for malnutrition (ex- brittle hair, bruises, dry skin, pale skin and conjunctiva, muscle wasting, smooth red tongue, and disorientation) Collaborate with interdisciplinary team and initiate plan and interventions as ordered Monitor patient's weight and dietary intake as ordered or per policy Utilize nutrition screening tool and intervene per policy Determine patient's food preferences and provide high-protein, high-caloric foods as appropriate Assist patient with eating Allow adequate time for meals Encourage patient to take dietary supplement as ordered Collaborate with clinical therapist speech Problem: Urinary Incontinence Goal: Perineal skin integrity is maintained or improved Outcome: Progressing Flowsheets (Taken 01/31/2025 1006) Perineal skin integrity is maintained or improved: Assess genitourinary system, perineal skin, labs (urinalysis), and history of incontinence to include past management, aggravating, and alleviating factors Collaborate with interdisciplinary team including wound, ostomy, and continence nurse and initiate plans and interventions as needed Keep skin clean and dry Apply urine containment device Apply skin protectant [facility]06-22-2025 NoteProblem: Potential for Compromised Skin Integrity Goal: Skin Integrity is Maintained or Improved Outcome: Progressing Problem: Problem Interventions Goal: Assess Nutritional Intake [facility] of care note* Care Plan - Marietta Mix RN - 01/31/2025 5:49 AM EDT Problem: Potential for Compromised Skin Integrity Goal: Skin Integrity is Maintained or Improved Outcome: Progressing Problem: Problem Interventions Goal: Assess Nutritional Intake Outcome: Progressing [facility] [id number] Plan of care note* Care Plan - Jacquelin Akers RN - 01/30/2025 2:55 PM EDT Problem: Knowledge Deficit Goal: Patient/family/caregiver demonstrates understanding of disease process, treatment plan, medications, and discharge instructions Outcome: Progressing Problem: Potential for Compromised Skin Integrity Goal: Skin Integrity is Maintained or Improved Outcome: Progressing Goal: Nutritional status is improving Outcome: Progressing Problem: Urinary Incontinence Goal: Perineal skin integrity is maintained or improved Outcome: Progressing Problem: Problem Interventions Goal: Assess Nutritional Intake Outcome: Progressing [facility] HealthVehzit04-91-1775 Plan of care note* Care Plan - Aditi Sousa RN - 01/30/2025 5:23 AM EDT Problem: Knowledge Deficit Goal: Patient/family/caregiver demonstrates understanding of disease process, treatment plan, medications, and discharge instructions Outcome: Progressing Problem: Potential for Compromised Skin Integrity Goal: Skin Integrity is Maintained or Improved Outcome: Progressing Goal: Nutritional status is improving Outcome: Progressing Problem: Urinary Incontinence Goal: Perineal skin integrity is maintained or improved Outcome: Progressing Problem: Problem Interventions Goal: Assess Nutritional Intake Outcome: Progressing [facility] [id number] Plan of care note* Care Plan - Radha Boland RN - 01/29/2025 6:49 PM EDT Problem: Knowledge Deficit Goal: Patient/family/caregiver demonstrates understanding of disease process, treatment plan, medications, and discharge instructions Outcome: Progressing Problem: Potential for Compromised Skin Integrity Goal: Skin Integrity is Maintained or Improved Outcome: Progressing Goal: Nutritional status is improving Outcome: Progressing Problem: Urinary Incontinence Goal: Perineal skin integrity is maintained or improved Outcome: Progressing Problem: Problem Interventions Goal: Assess Nutritional Intake Outcome: Progressing [facility] [id number] Note* Home Care - Chas Garza RN - 01/29/2025 2:52 PM EDT Spoke with patient directly regarding home care options. We discussed her daily dressing changes, and patient states she lives alone and cannot do them herself. I explained nursing for home care would only be out 1-2X a week maximum, so she would be responsible for dressing changes all other days of the week. Patient states she does not think her children would be willing to help, but gives permission to the [facility] to reach out to them. HIPAA compliant message left for patient's daughter. I explained to the patient that home care would require a teachable rn progressive care as they need to ensure she isreceiving the ordered treatment for her wound. She stated she understood, but did not seem to want p lacement as an alternative at this time. [facility] notified. Communication Professor following case for Discharge Needs. [facility] [id number] Note* Home Care - Chas Garza RN - 01/29/2025 2:52 PM EDT Spoke with patient directly regarding home care options. We discussed her daily dressing changes, and patient states she lives alone and cannot do them herself. I explained nursing for home care would only be out 1-2X a week maximum, so she would be responsible for dressing changes all other days of the week. Patient states she does not think her children would be willing to help, but gives permission to the [facility] to reach out to them. HIPAA compliant message left for patient's daughter. I explained to the patient that home care would require a teachable rn progressive care as they need to ensure she isreceiving the ordered treatment for her wound. She stated she understood, but did not seem to want p lacement as an alternative at this time. [facility] notified. Communication Professor following case for Discharge Needs. [facility] [id number] Note* Care Coordination - Mag Chaney RN - 01/29/2025 12:09 PM EDT Spoke with pt about SNF and [facility]. She states she is going home with [facility].. [facility] [id number] Note* Care Coordination - Mag Chaney RN - 01/29/2025 12:09 PM EDT Spoke with pt about SNF and [facility]. She states she is going home with [facility].. [facility] [id number] Note* Care Coordination - Mag Chaney RN - 01/29/2025 12:00 PM EDT Care Management Progress Note Continues on IV antibiotics for surgical site infection. PT recommends SNF, will see if she wants to go. . Length of Stay (Days): 3 GMLOS: 3.5 [facility]-3814 [facility]* Care Coordination - Mag Chaney RN - 01/29/2025 12:00 PM EDT Care Management Progress Note Continues on IV antibiotics for surgical site infection. PT recommends SNF, will see if she wants to go. . Length of Stay (Days): 3 GMLOS: 3.5 [facility] HealthSqmgai74-57-2789 NoteCare Management Progress Note Continues on IV antibiotics for surgical site infection. PT recommends SNF, will see if she wants to go. . Length of Stay (Days): 3 [facility] [id number] Plan of care note* Care Plan - Elda Pearson RN - 01/29/2025 12:10 AM EDT Problem: Knowledge Deficit Goal: Patient/family/caregiver demonstrates understanding of disease process, treatment plan, medications, and discharge instructions Outcome: Progressing Problem: Potential for Compromised Skin Integrity Goal: Skin Integrity is Maintained or Improved Outcome: Progressing Goal: Nutritional status is improving Outcome: Progressing Problem: Urinary Incontinence Goal: Perineal skin integrity is maintained or improved Outcome: Progressing Problem: Problem Interventions Goal: Assess Nutritional Intake Outcome: Progressing [facility] HealthSqtzmz21-73-4669 Note* Care Coordination - Mag Chaney RN - 01/28/2025 10:59 AM EDT Care Management Progress Note Continues on IV antibiotics. Ortho has signed off. No osteo in hip. Need PT and OT to eval. May have needs.. Length of Stay (Days): 2 GMLOS: 3.5 [facility] HealthJalpgh02-95-2941 Note* Care Coordination - Mag Chaney RN - 01/28/2025 10:59 AM EDT Care Management Progress Note Continues on IV antibiotics. Ortho has signed off. No osteo in hip. Need PT and OT to eval. May have needs.. Length of Stay (Days): 2 GMLOS: 3.5 [place] [id number] NoteCare Management Progress Note Continues on IV antibiotics. Ortho has signed off. No osteo in hip. Need PT and OT to eval. May have needs.. Length of Stay (Days): 2 LOS: [address] [place], [place] [id number] Plan of care note* Care Plan - Aditi Sousa RN - 01/28/2025 3:55 AM EDT Problem: Knowledge Deficit Goal: Patient/family/caregiver demonstrates understanding of disease process, treatment plan, medications, and discharge instructions 01/28/2025354 by Aditi Sousa RN Outcome: Progressing 01/27/2025 225 by Aditi Sousa RN Outcome: Progressing Problem: Potential for Compromised Skin Integrity Goal: Skin Integrity is Maintained or Improved 01/28/2025354 by Aditi Sousa RN Outcome: Progressing 01/27/20252252 by Aditi Sousa RN Outcome: Progressing Goal: Nutritional status is improving 01/28/2025354 by Aditi Sousa RN Outcome: Progressing 01/27/2025 225 by Aditi Sousa RN Outcome: Progressing Problem: Urinary Incontinence Goal: Perineal skin integrity is maintained or improved 01/28/2025354 by Aditi Sousa RN Outcome: Progressing 01/27/20252252 by Aditi Sousa RN Outcome: Progressing Problem: Problem Interventions Goal: Assess Nutritional Intake 01/28/2025354 by Aditi Sousa RN Outcome: Progressing 01/27/2025 225 by Aditi Sousa RN Outcome: Progressing [facility]06-18-2025 Plan of care note* Care Plan - Aditi Sousa RN - 01/27/2025 10:53 PM EDT Problem: Knowledge Deficit Goal: Patient/family/caregiver demonstrates understanding of disease process, treatment plan, medications, and discharge instructions Outcome: Progressing Problem: Potential for Compromised Skin Integrity Goal: Skin Integrity is Maintained or Improved Outcome: Progressing Goal: Nutritional status is improving Outcome: Progressing Problem: Urinary Incontinence Goal: Perineal skin integrity is maintained or improved Outcome: Progressing Problem: Problem Interventions Goal: Assess Nutritional Intake Outcome: Progressing [facility] [id number] Note* Care Coordination - Mag Chaney RN - 01/27/2025 12:49 PM EDT Care Management Progress Note Continues on IV antibiotics for soft tissue infection. Has a R non healing foot ulcer. I and D sonelast night, Sight with dressing changes. Wound Care to see. Asked for PT and OT orders, may need SNF vs HHC. . Length of Stay (Days): 1 GMLOS: No GMLOS Documented [facility] [id number] Note* Care Coordination - Mag Chaney RN - 01/27/2025 12:49 PM EDT Care Management Progress Note Continues on IV antibiotics for soft tissue infection. Has a R non healing foot ulcer. I and D amberelast night, Sight with dressing changes. Wound Care to see. Asked for PT and OT orders, may need SNF vs HHC. . Length of Stay (Days): 1 GMLOS: No GMLOS Documented [facility] [id number] Consult note* Marielos Blair APRN - [place]REE - 01/27/2025 9:10 AM EDTAssociated Order(s): INPATIENT CONSULT TO WOUND CARE PROVIDERS Images from the original note were not included. [facility] Wound Care CONSULT Note Hanna Nelson AGE: 84 y.o. GENDER: female : 1940 Subjective: HISTORY of PRESENT ILLNESS HPI Hanna Nelson is a 84 y.o. female who presents for a wound consult. HPI: 84 y.o. female who presents to the emergency department with chief complaint of feeling unwell. Part of the history is provided by her son and daughter at the bedside, who states that this evening, her blood pressure was 165/125, her heart rate was 117, and her blood sugar was greater than 300. Admitted for bacteremia, SIRS and severe sepsis. Wound Care consulted for right foot wound. Patient is resting in bed, looking unwell with daughter at the bedside. Dressing applied at time of visit today. Diagnostics reviewed. Orthopedics is following. PAST MEDICAL HISTORY Medical History[1] PAST SURGICAL HISTORY Surgical History[2] FAMILY HISTORY Family History[3] SOCIAL HISTORY Social History[4] ALLERGIES Allergies[5] MEDICATIONS Medications Ordered Prior to Encounter[6] REVIEW OF SYSTEMS Pertinent items are noted in HPI. Objective: BP 103/64 (BP Location: Left arm, Patient Position: Sitting) Pulse 86 Temp 36.2 C (97.1 F) (Temporal) Resp 20 Ht 5' 10" (1.778 m) Wt 220 lb (99.8 kg) SpO2 95% BMI 31.57 kg/m PHYSICAL EXAM General appearance: in no apparent distress, in no respiratory distress and acyanotic, alert, cooperative, and moderately ill Skin: warm and dry Pulmonary: Normal effort, no respiratory distress, no cyanosis Abdomen: soft, nontender, and nondistended Extremities: warm and dry Right plantar foot - 2.5 x 0.6 x 1.5cm - wound bed with large red granular tissue, moderate sanguinous drainage, strike through on old dressing, linda wound tissue with erythema, edema, no odor, woundis tender. 01/27/25 LABS CBC: Lab Results Component Value Date WBC 19.4 (H) 01/27/2025 HGB 10.1 (L) 01/27/2025 HCT 31.5 (L) 01/27/2025 MCV 94.3 01/27/2025 PLT 165 01/27/2025 BMP: Lab Results Component Value Date NA 132 (L) 01/27/2025 K 4.2 01/27/2025 CL 106 01/27/2025 CO2 18 (L) 01/27/2025 BUN 36 (H) 01/27/2025 CREATININE 1.25 (H) 01/27/2025 PT/INR: Lab Results Component Value Date PROTIME 12.7 (H) 01/26/2025 INR 1.2 (H) 01/26/2025 Prealbumin: No results found for: "PREALBUMIN" Albumin:No components found for: "LABALBU" Sed Rate: Lab Results Component Value Date SEDRATE 17 01/26/2025 Micro: No components found for: "BC" Assessment/Plan: Nursing staff to perform dressing change: Right plantar foot DFU (muscle): Right foot cellulitis: -cleanse with NS, gently pack mesalt ribbon into wound space, cover with ABD, kerlix - change Daily/PRN -avoid pressure to wound as much as possible -continue antibiotics -Ortho following Nutritional support Wound Care to follow Recommend to follow up at [facility] wound care center after hospital discharge. Any questions or concerns please secure chat "ACH wound/ostomy". Thank you for the consult! I personally obtained the larsen and critical portions of the history and physical exam. I reviewed the labs, imaging studies, and electronic medical record. I reviewed the chart documentation and discussed the patient with treatment team members. I have edited the note to reflect my clinical findingsand my assessment and plan. Please note, the time of this note does not reflect the time I saw thispatient today, but the time of this documentaton. Portions of this note including HPI, ROS, impression/plan, and examination may have been copied forward from admission to today as to provide important historical information essential in contributing to medical decision making. Documentation has been reviewed and edited as necessary to support clinical decision making for today's visit and to reflect my own independent evaluation of this patient. Decision making for today's visit and to reflectmy own independent evaluation of this patient. [1] Past Medical History: Diagnosis Date Atrial fibrillation (HCC) Diabetes mellitus (HCC) Hyperlipidemia Hypertension Hypothyroidism Neuropathy [2] Past Surgical History: Procedure Laterality Date BACK SURGERY CHOLECYSTECTOMY [3] No family history on file. [4] Social History Tobacco Use Smoking status: Former Current packs/day: 0.00 Types: Cigarettes Quit date: 1965 Years since quittin.5 Smokeless tobacco: Never Vaping Use Vaping status: Never Used Substance Use Topics Alcohol use: Yes Comment: drinks bee occasionally Drug use: Never [5] Allergies Allergen Reactions Tape Rash [6] No current facility-administered medications on file prior to encounter. Current Outpatient Medications on File Prior to Encounter Medication Sig Dispense Refill Alcohol Swabs (Alcohol Prep) 70 % pads 1 Pad 3 times daily. 200 each 2 apixaban (Eliquis) 5 MG tablet Take 5 mg by mouth 2 times daily. Blood Glucose Monitoring Suppl (Blood Glucose Monitor System) w/Device kit Check glucose 3x daily 1kit 0 Continuous Glucose Sensor (FreeStyle Javier 3 Plus Sensor) misc 1 each every 15 days. 2 each 11 gabapentin (Neurontin) 300 MG capsule Take 300 mg by mouth 2 times daily. glucose blood test strip Use as instructed 100 each 0 insulin degludec (Tresiba FlexTouch) 100 UNIT/ML injection Inject under the skin Nightly. insulin glargine (Lantus) 100 UNIT/ML injection Inject 32 Units under the skin Nightly. 10 mL 12 Lancets Check glucose x3 daily 100 each 3 levothyroxine (Tirosint) 112 MCG capsule Take by mouth every morning (before breakfast). metFORMIN (Glucophage) 500 MG tablet Take 1 tablet (500 mg) by mouth 2 times daily (with meals). 60tablet 6 oxybutynin (Ditropan) 5 MG tablet Take 10 mg by mouth daily. semaglutide (Ozempic) 2 MG/3ML solution pen-injector Inject 0.5 mg under the skin 1 (one) time per week. 3 mL 11 atenolol (Tenormin) 25 MG tablet Take 1 tablet (25 mg) by mouth 2 times daily. 60 tablet 0 atorvastatin (Lipitor) 40 MG tablet Take 40 mg by mouth daily. (Patient not taking: Reported on 01/25/2025) ciprofloxacin (Cipro) 250 MG tablet Take 250 mg by mouth 2 times daily. (Patient not taking: No sigreported) fenofibrate (Triglide) 160 MG tablet Take 160 mg by mouth daily. (Patient not taking: Reported on 01/25/2025) Cosigned by Hi Mckeon DO at 02/01/2025 4:44 PM EDT [id number] Consult note* ALEJANDRINA Ramesh CNP - 01/27/2025 9:10 AM EDTAssociated Order(s): INPATIENT CONSULT TO WOUND CARE PROVIDERS Images from the original note were not included. [facility] Wound Care CONSULT Note Hanna Nelson AGE: 84 y.o. GENDER: female : 1940 Subjective: HISTORY of PRESENT ILLNESS HPI Hanna Nelson is a 84 y.o. female who presents for a wound consult. HPI: 84 y.o. female who presents to the emergency department with chief complaint of feeling unwell. Part of the history is provided by her son and daughter at the bedside, who states that this evening, her blood pressure was 165/125, her heart rate was 117, and her blood sugar was greater than 300. Admitted for bacteremia, SIRS and severe sepsis. Wound Care consulted for right foot wound. Patient is resting in bed, looking unwell with daughter at the bedside. Dressing applied at time of visit today. Diagnostics reviewed. Orthopedics is following. PAST MEDICAL HISTORY Medical History[1] PAST SURGICAL HISTORY Surgical History[2] FAMILY HISTORY Family History[3] SOCIAL HISTORY Social History[4] ALLERGIES Allergies[5] MEDICATIONS Medications Ordered Prior to Encounter[6] REVIEW OF SYSTEMS Pertinent items are noted in HPI. Objective: BP 103/64 (BP Location: Left arm, Patient Position: Sitting) Pulse 86 Temp 36.2 C (97.1 F) (Temporal) Resp 20 Ht 5' 10" (1.778 m) Wt 220 lb (99.8 kg) SpO2 95% BMI 31.57 kg/m PHYSICAL EXAM General appearance: in no apparent distress, in no respiratory distress and acyanotic, alert, cooperative, and moderately ill Skin: warm and dry Pulmonary: Normal effort, no respiratory distress, no cyanosis Abdomen: soft, nontender, and nondistended Extremities: warm and dry Right plantar foot - 2.5 x 0.6 x 1.5cm - wound bed with large red granular tissue, moderate sanguinous drainage, strike through on old dressing, linda wound tissue with erythema, edema, no odor, woundis tender. 01/27/25 LABS CBC: Lab Results Component Value Date WBC 19.4 (H) 01/27/2025 HGB 10.1 (L) 01/27/2025 HCT 31.5 (L) 01/27/2025 MCV 94.3 01/27/2025 PLT 165 01/27/2025 BMP: Lab Results Component Value Date NA 132 (L) 01/27/2025 K 4.2 01/27/2025 CL 106 01/27/2025 CO2 18 (L) 01/27/2025 BUN 36 (H) 01/27/2025 CREATININE 1.25 (H) 01/27/2025 PT/INR: Lab Results Component Value Date PROTIME 12.7 (H) 01/26/2025 INR 1.2 (H) 01/26/2025 Prealbumin: No results found for: "PREALBUMIN" Albumin:No components found for: "LABALBU" Sed Rate: Lab Results Component Value Date SEDRATE 17 01/26/2025 Micro: No components found for: "BC" Assessment/Plan: Nursing staff to perform dressing change: Right plantar foot DFU (muscle): Right foot cellulitis: -cleanse with NS, gently pack mesalt ribbon into wound space, cover with ABD, kerlix - change Daily/PRN -avoid pressure to wound as much as possible -continue antibiotics -Ortho following Nutritional support Wound Care to follow Recommend to follow up at [facility] wound care center after hospital discharge. Any questions or concerns please secure chat "ACH wound/ostomy". Thank you for the consult! I personally obtained the larsen and critical portions of the history and physical exam. I reviewed the labs, imaging studies, and electronic medical record. I reviewed the chart documentation and discussed the patient with treatment team members. I have edited the note to reflect my clinical findingsand my assessment and plan. Please note, the time of this note does not reflect the time I saw thispatient today, but the time of this documentaton. Portions of this note including HPI, ROS, impression/plan, and examination may have been copied forward from admission to today as to provide important historical information essential in contributing to medical decision making. Documentation has been reviewed and edited as necessary to support clinical decision making for today's visit and to reflect my own independent evaluation of this patient. Decision making for today's visit and to reflectmy own independent evaluation of this patient. [1] Past Medical History: Diagnosis Date Atrial fibrillation (HCC) Diabetes mellitus (HCC) Hyperlipidemia Hypertension Hypothyroidism Neuropathy [2] Past Surgical History: Procedure Laterality Date BACK SURGERY CHOLECYSTECTOMY [3] No family history on file. [4] Social History Tobacco Use Smoking status: Former Current packs/day: 0.00 Types: Cigarettes Quit date: 1964 Years since quittin.5 Smokeless tobacco: Never Vaping Use Vaping status: Never Used Substance Use Topics Alcohol use: Yes Comment: drinks bee occasionally Drug use: Never [5] Allergies Allergen Reactions Tape Rash [6] No current facility-administered medications on file prior to encounter. Current Outpatient Medications on File Prior to Encounter Medication Sig Dispense Refill Alcohol Swabs (Alcohol Prep) 70 % pads 1 Pad 3 times daily. 200 each 2 apixaban (Eliquis) 5 MG tablet Take 5 mg by mouth 2 times daily. Blood Glucose Monitoring Suppl (Blood Glucose Monitor System) w/Device kit Check glucose 3x daily 1kit 0 Continuous Glucose Sensor (FreeStyle Javier 3 Plus Sensor) misc 1 each every 15 days. 2 each 11 gabapentin (Neurontin) 300 MG capsule Take 300 mg by mouth 2 times daily. glucose blood test strip Use as instructed 100 each 0 insulin degludec (Tresiba FlexTouch) 100 UNIT/ML injection Inject under the skin Nightly. insulin glargine (Lantus) 100 UNIT/ML injection Inject 32 Units under the skin Nightly. 10 mL 12 Lancets Check glucose x3 daily 100 each 3 levothyroxine (Tirosint) 112 MCG capsule Take by mouth every morning (before breakfast). metFORMIN (Glucophage) 500 MG tablet Take 1 tablet (500 mg) by mouth 2 times daily (with meals). 60tablet 6 oxybutynin (Ditropan) 5 MG tablet Take 10 mg by mouth daily. semaglutide (Ozempic) 2 MG/3ML solution pen-injector Inject 0.5 mg under the skin 1 (one) time per week. 3 mL 11 atenolol (Tenormin) 25 MG tablet Take 1 tablet (25 mg) by mouth 2 times daily. 60 tablet 0 atorvastatin (Lipitor) 40 MG tablet Take 40 mg by mouth daily. (Patient not taking: Reported on 01/25/2025) ciprofloxacin (Cipro) 250 MG tablet Take 250 mg by mouth 2 times daily. (Patient not taking: No sigreported) fenofibrate (Triglide) 160 MG tablet Take 160 mg by mouth daily. (Patient not taking: Reported on 01/25/2025) Cosigned by Hi Mckeon DO at 02/01/2025 4:44 PM EDT * Prachi Victoria MD - 01/26/2025 12:51 PM EDTAssociated Order(s): IP CONSULT TO ORTHOPAEDIC SURGERY Images from the original note were not included. Ortho Consult Patient: Hanna Nelson Date of : 1940 Acct: [id number] PCP: Dorothy Medrano Date of Admission: 01/25/2025 Date of Service: Pt seen/examined on 01/26/2025 Chief Complaint: Right non-healing foot ulcer History Of Present Illness: This is a 84 y.o. female with past medical history of diabetes and bilateral diabetic neuropathy who presents with a non-healing ulcer to the right foot with signs of concomitant cellulitis. Patient is know to Dr. Alas and has been seeing him for ongoing care of their right foot ulceration with last appointment being on 12/11/2024 with plan for local wound care and close outpatient follow-up. Patient presented to [facility] ED on 01/25 due to complaints of notfeeling well. She was found to be hypertensive, tachycardic with an elevated blood gluxose. Patientwas also found to have RLE cellulitis with a right foot diabetic ulcer so orthopedic surgery was consulted for further evaluation and management. Patient reports her foot wound has been present for years. She has started to have a painful sensation in her left foot recently that is more bothersome than the right currently. Patient ambulation status: Will frequently use a cane. Antiplatelets/Anticoagulation includes: Eliquis for Afib. Illicit substance Use: denies Alcohol Use: denies Tobacco use: denies Temperature: 36 C on 01/26 at 1201 WBC: 18.4 CRP: pending ESR: pending Blood cx: pending Past Medical History: Medical History[1] Past Surgical History: Surgical History[2] Home Medications: Prior to Admission medications Medication Sig Start Date End Date Taking? Authorizing Provider Alcohol Swabs (Alcohol Prep) 70 % pads 1 Pad 3 times daily. 09/23/24 Yes Herman Pepper, DO apixaban (Eliquis) 5 MG tablet Take 5 mg by mouth 2 times daily. Yes Historical Provider, Blood Glucose Monitoring Suppl (Blood Glucose Monitor System) w/Device kit Check glucose 3x daily 09/23/24 Yes Herman Pepper, DO Continuous Glucose Sensor (FreeStyle Javier 3 Plus Sensor) misc 1 each every 15 days. 12/24/24 Yes Priscila Laguerre, 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 - [employer] gabapentin (Neurontin) 300 MG capsule Take 300 mg by mouth 2 times daily. Yes Historical Provider, glucose blood test strip Use as instructed 09/17/24 09/17/25 Yes Damian Loza, DO insulin degludec (Tresiba FlexTouch) 100 UNIT/ML injection Inject under the skin Nightly. Yes Historical Provider, insulin glargine (Lantus) 100 UNIT/ML injection Inject 32 Units under the skin Nightly. 12/05/24 12/05/25 Yes Shane Rodriguez MD Lancets Check glucose x3 daily 09/23/24 Yes Herman Pepper, DO levothyroxine (Tirosint) 112 MCG capsule Take by mouth every morning (before breakfast). Yes Historical Provider, metFORMIN (Glucophage) 500 MG tablet Take 1 tablet (500 mg) by mouth 2 times daily (with meals). 09/24/24 04/22/25 Yes Herman Pepper, DO oxybutynin (Ditropan) 5 MG tablet Take 10 mg by mouth daily. Yes Historical Provider, semaglutide (Ozempic) 2 MG/3ML solution pen-injector Inject 0.5 mg under the skin 1 (one) time per week. 12/24/24 12/24/25 Yes Priscila Laguerre APRN - [employer] atenolol (Tenormin) 25 MG tablet Take 1 tablet (25 mg) by mouth 2 times daily. 12/05/24 01/12/25 Shane Rodriguez MD atorvastatin (Lipitor) 40 MG tablet Take 40 mg by mouth daily. Patient not taking: Reported on 01/25/2025 Historical Provider, ciprofloxacin (Cipro) 250 MG tablet Take 250 mg by mouth 2 times daily. Patient not taking: No sig reported Historical Provider, fenofibrate (Triglide) 160 MG tablet Take 160 mg by mouth daily. Patient not taking: Reported on 01/25/2025 Historical Provider, Current Hospital Medications: Current Medications[3] Allergies: Tape Social History: Social History Socioeconomic History Marital status: Spouse name: Not on file Number of children: Not on file Years of education: Not on file Highest education level: Not on file Occupational History Not on file Tobacco Use Smoking status: Former Current packs/day: 0.00 Types: Cigarettes Quit date: 1964 Years since quittin.4 Smokeless tobacco: Never Vaping Use Vaping status: Never Used Substance and Sexual Activity Alcohol use: Yes Comment: drinks bee occasionally Drug use: Never Sexual activity: Not on file Other Topics Concern Not on file Social History Narrative Not on file Social Drivers of Health Financial Resource Strain: Not on file Food Insecurity: No Food Insecurity (12/03/2024) Hunger Vital Sign Worried About Running Out of Food in the Last Year: Never true Ran Out of Food in the Last Year: Never true Transportation Needs: No Transportation Needs (12/03/2024) PRAPARE - Transportation Lack of Transportation (Medical): No Lack of Transportation (Non-Medical): No Physical Activity: Not on file Stress: Not on file Social Connections: Not on file Intimate Partner Violence: Not At Risk (12/03/2024) Humiliation, Afraid, Rape, and Kick questionnaire Fear of Current or Ex-Partner: No Emotionally Abused: No Physically Abused: No Sexually Abused: No Housing Stability: Low Risk (12/03/2024) Housing Stability Vital Sign Unable to Pay for Housing in the Last Year: No Number of Times Moved in the Last Year: 1 Homeless in the Last Year: No Family History: Family History[4] Further Family History is noncontributory to this injury. REVIEW OF SYSTEMS: Review of Systems - General ROS: negative for - chills, fatigue, fever, malaise or night sweats Psychological ROS: negative Ophthalmic ROS: negative ENT ROS: negative for - headaches or sore throat Hematological and Lymphatic ROS: negative for - bleeding problems or blood clots Respiratory ROS: no cough, shortness of breath, or wheezing Cardiovascular ROS: no chest pain or dyspnea on exertion Gastrointestinal ROS: negative Musculoskeletal ROS: See HPI Neurological ROS: negative for - bowel and bladder control changes, gait disturbance or numbness/tingling All other systems reviewed and are negative PHYSICAL EXAM: BP 114/79 (BP Location: Right arm, Patient Position: Sitting) Pulse (!) 121 Temp 36 C (96.8 F) (Temporal) Resp 17 Ht 1.778 m (5' 10") Wt 94.2 kg (207 lb 9.6 oz) SpO2 93% BMI 29.79 kg/m GENERAL APPEARANCE: Awake and oriented and alert x3. No acute distress, except appropriate to injury. MOOD AND AFFECT: Calm appropriate to situation GAIT AND STATION: Patient is in bed and unable to ambulate secondary to known injury. COORDINATION and BALANCE: Patient is grossly coordinated unable to ambulate secondary to known injury. Right Upper Extremity: -No obvious pain or deformity to inspection with normal joint range of motion, stability, and muscle strength except noted below -No TTP over clavicle, shoulder, humerus, elbow, forearm, wrist, hand, or fingers -TTP: nontender throughout extremity -Radial pulse palpable -SILT in radial/median/ ulnar nerve distributions -Motor + AIN/PIN/ulnar nerve functions -No Lymphedema -Skin intact except where noted below -Painless pROM at shoulder/elbow/wrist Left Upper Extremity: -No obvious pain or deformity to inspection with normal joint range of motion, stability, and muscle strength except noted below -No TTP over clavicle, shoulder, humerus, elbow, forearm, wrist, hand, or fingers -TTP: nontender throughout extremity -Radial pulse palpable -SILT in radial/median/ ulnar nerve distributions -Motor + AIN/PIN/ulnar nerve functions -No Lymphedema -Skin intact except where noted below -Painless pROM at shoulder/elbow/wrist Right Lower Extremity: -No obvious pain or deformity to inspection with normal joint range of motion, stability, and muscle strength except noted below -No TTP over pelvis, hip, thigh, knee, tibia, lateral mal, medial mal, calc, midfoot, forefoot -TTP: No focal tenderness, dense neuropathy throughout -Pulse: DP Palpable, PT Palpable -SILT in the superficial peroneal, deep peroneal, sural, tibial, saphenous nerve distributions; dense neuropathy to the level of the knee. -Motor function of quad, tibialis anterior, extensor hallucis longus, and gactrocsoleus complex intact -No Lymphedema -Skin intact except where noted below -Painless pROM at hip/knee/ankle Please see clinical picture below. There is an ulcer on the plantar foot with visible erythema and expressible purulence. There proximal streaking erythema up to the level of the knee. Wound does/does not probe deep to bone. DP/PT pulses palpable. Gross deformity of the ankle 2/2 charcot arthropathy. Left Lower Extremity: -No obvious pain or deformity to inspection with normal joint range of motion, stability, and muscle strength except noted below -No TTP over pelvis, hip, thigh, knee, tibia -TTP: Painful neuropathy diffusely throughout foot -Pulse: DP Palpable, PT Palpable -SILT in the superficial peroneal, deep peroneal, tibial, sural, saphenous nerve distributions; dense neuropathy to the level of the knee. -Motor function of quad, tibialis anterior, extensor hallucis longus, and gactrocsoleus complex intact -No Lymphedema -Skin intact except where noted below -Painless pROM at hip/knee/ankle Gross deformity of the ankle 2/2 charcot arthropathy. Labs: CBC: Lab Results Component Value Date WBC 18.4 (H) 01/26/2025 RBC 3.76 (L) 01/26/2025 BMP: Lab Results Component Value Date GLUCOSE 250 (H) 01/26/2025 CO2 19 (L) 01/26/2025 BUN 44 (H) 01/26/2025 CREATININE 1.44 (H) 01/26/2025 CALCIUM 8.7 (L) 01/26/2025 PT/INR: No results found for: "PT", "INR", "APTT" Type and Screen: No results found for: "RH", "LABANTI" CRP: No results found for: "CRP" ESR: No results found for: "SEDRATE" HgBA1c: No components found for: "LABA1C" The above labs were reviewed by me. Radiology: The below images were independently reviewed and interpreted with pertinent findings noted below. XR: Right foot: pending MRI: Right foot: pending Radiology reports reviewed. ASSESSMENT: 84 y.o. female with bilateral charcot arthropathy a right diabetic non-healing ulcer and concomitant cellulitis/abscess. PLAN: -will D/W Dr. Gorman -Will obtain MRI to further evaluate extent of infection. Final plan pending MRI findings. -PVRs pending, if abnormal we will consult vascular surgery -Wound care consulted -Activity as tolerated -Elevate extremity to decrease swelling -NWB RLE -Neurovascular checks/skin checks -Pain/medical management per primary team -Orthopaedic surgery will follow. Please page vp information technology orthopaedic resident for questions or concerns. Prachi Victoria MD Orthopedic Surgery PGY-2 01/26/2025 at 12:51 PM [1] Past Medical History: Diagnosis Date Atrial fibrillation (HCC) Diabetes mellitus (HCC) Hyperlipidemia Hypertension Hypothyroidism Neuropathy [2] Past Surgical History: Procedure Laterality Date BACK SURGERY CHOLECYSTECTOMY [3] Current Facility-Administered Medications: acetaminophen (Tylenol) tablet 650 mg, 650 mg, Oral, q6h PRN OR acetaminophen (Tylenol) suppository 650 mg, 650 mg, Rectal, q6h PRN, Tiarraramon Ruelas, 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 - NUCLEAR PLANT INSTRUMENT TECHNICIAN apixaban (Eliquis) tablet 5 mg, 5 mg, Oral, BID, Tiarra Isaiah Ruelas, 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 - NUCLEAR PLANT INSTRUMENT TECHNICIAN, 5 mg at 01/26/25 1033 atenolol (Tenormin) tablet 25 mg, 25 mg, Oral, BID, Tiarraramon Ruelas, 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 - NUCLEAR PLANT INSTRUMENT TECHNICIAN, 25 mg at 01/26/25 1208 dextrose 5 % infusion, 100 mL/hr, IntraVENous, PRN, Tiarraramon Ruelas, 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 - NUCLEAR PLANT INSTRUMENT TECHNICIAN dextrose 50 % solution 12.5 g, 12.5 g, IntraVENous, PRN, Tiarra Ruelas 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 - NUCLEAR PLANT INSTRUMENT TECHNICIAN gabapentin (Neurontin) capsule 300 mg, 300 mg, Oral, BID, ALEJANDRINA Arroyo CNP, 300 mg at 01/26/25 1033 glucagon (human recombinant) injection 1 mg, 1 mg, IntraMUSCular, PRN, ALEJANDRINA Arroyo CNP glucose oral gel 15 g, 15 g, Oral, PRN, ALEJANDRINA Arroyo CNP insulin glargine (Lantus) injection 32 Units, 32 Units, SubCUTAneous, Nightly, ALEJANDRINA Arroyo CNP Insulin Lispro (Humalog) injection 0-12 Units, 0-12 Units, SubCUTAneous, TID WC, ALEJANDRINA Arroyo CNP, 6 Units at 01/26/25 1243 Insulin Lispro (Humalog) injection 5 Units, 5 Units, SubCUTAneous, TID WC, ALEJANDRINA Arroyo CNP, 5 Units at 01/26/25 1243 Lactobacillus 0.05-0.05 MG 4 tablet, 4 tablet, Oral, Daily, ALEJANDRINA Arroyo CNP [START ON 01/27/2025] levothyroxine (Synthroid, Levoxyl) tablet 112 mcg, 112 mcg, Oral, qAM AC, ALEJANDRINA Arroyo CNP metoprolol tartrate (Lopressor) injection 5 mg, 5 mg, IntraVENous, q6h PRN, PACO Arroyo CNP ondansetron ODT (Zofran-ODT) disintegrating tablet 4 mg, 4 mg, Oral, q8h PRN OR ondansetron (Zofran) injection 4 mg, 4 mg, IntraVENous, q6h PRN, ALEJANDRINA Arroyo CNP piperacillin-tazobactam (Zosyn) 4,500 mg in sodium chloride 0.9 % 100 mL IVPB Mini-Bag Plus, 4,500 mg, IntraVENous, q6h, Ramiro Crawford MD polyethylene glycol (PEG) 3350 (Miralax) packet 17 g, 17 g, Oral, Daily PRN, ALEJANDRINA Arroyo CNP sodium chloride 0.9 % infusion, 5-250 mL/hr, IntraVENous, PRN, Sanjuanita Conley MD sodium chloride 0.9 % infusion, 75 mL/hr, IntraVENous, Continuous, Tiarra Ruelas, 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 - NUCLEAR PLANT INSTRUMENT TECHNICIAN, Last Rate: 75 mL/hr at 01/26/25 1207, 75 mL/hr at 01/26/25 1207 sodium chloride 0.9% (NS) flush 5-40 mL, 5-40 mL, IntraVENous, 2 times per day, Sanjuanita Conley MD, 10 mL at 01/26/25 1223 sodium chloride 0.9% (NS) flush 5-40 mL, 5-40 mL, IntraVENous, PRN, Sanjuanita Conley MD vancomycin IVPB 1250 mg in 250 mL NS (premix), 1,250 mg, IntraVENous, q24h, Ramiro Crawford MD [4] No family history on file. Cosigned by Regine Bansal DPM at 01/29/2025 8:41 AM EDT documented in this [facility]06-18-2025 Plan of care note* Care Plan - Jorge Dover RN - 01/27/2025 12:05 AM EDT Problem: Knowledge Deficit Goal: Patient/family/caregiver demonstrates understanding of disease process, treatment plan, medications, and discharge instructions Outcome: Progressing Problem: Potential for Compromised Skin Integrity Goal: Skin Integrity is Maintained or Improved Outcome: Progressing [id number] [facility] Discharge instructions* Discharge Instructions* Prachi Victoria MD - 01/26/2025 9:53 PM EDT Images from the original note were not included. General Orthopedic Discharge Instructions The following instructions have been prepared to help you when you leave the hospital. These guidelines are for the post-injury period. Activity: Ease into normal activity as tolerated. Medications: see medication instructions. Please be sure to read and understand the information provided by your pharmacy. Ask your Pharmacist if any questions. Wound Care and Hygiene: -Wash hands before touching or changing dressings -Do Not touch incision -Attend outpatient wound care appointments. Call Your Doctor for: -Excessive bleeding/swelling of wound -Fever with temperature above 100 oF Additional Instructions: Follow up with Dr. Alas for further evaluation and management of right foot wound. Discharge information for Dr. Gorman included if you have any orthopedic concerns. * Discharge Instr - LAURA* Vance Swift RN - 02/01/2025 12:36 PM EDT Images from the original note were not included. Continuity of Care Form Patient Name: Hanna Nelson : 1940 Admit date: 01/25/2025 Discharge date: 02/02/2025 Code Status Order: Full Code Advance Directives: N Admitting Physician: Patel Can MD PCP: Dorothy Medrano Discharging Nurse: Vance Swift RN Discharging Hospital Unit/Room#: W5-543/W5-543 B Discharging Unit Emergency Contact: Extended Emergency Contact Information Primary Emergency Contact: Hi Nelson Relation: Son Preferred language: Burmese Metal Bumper needed? No Secondary Emergency Contact: Melba [facility] Mobile Relation: Daughter Past Surgical History: Past Surgical History: Procedure Laterality Date BACK SURGERY CHOLECYSTECTOMY Immunization History: There is no immunization history on file for this patient. 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) Confusion Sepsis (HCC) Isolation/Infection: No active isolations No active infections Nurse Assessment: Last Vital Signs: BP 148/90 (BP Location: Left arm, Patient Position: Lying) Pulse 82 Temp 36.5C (97.7 F) (Temporal) Resp 18 Ht 1.778 m (5' 10") Wt 97.7 kg (215 lb 4.8 oz) SpO2 97% BMI30.89 kg/m Last documented pain score (0-10 scale): Last Weight: Wt Readings from Last 1 Encounters: 02/01/25 97.7 kg (215 lb 4.8 oz) Mental Status: LAURA Patient Mental Status: disoriented, alert, logical, able to concentrate and follow conversation, and doesn't know situation or time IV Access: LAURA IV Access: None Nursing Mobility/ADLs: Walking Total assistance Transfer Total assistance Bathing Total assistance Dressing Total assistance Toileting Total assistance Feeding Independent Toll Gate Tender Independent Med Delivery yes Wound Care Documentation and Therapy: Wound/Incision 09/18/24 Diabetic Ulcer Foot Right (Active) Site Assessment Epithelialization;Red 02/01/25 0800 Linda-Wound Assessment Blanchable erythema 02/01/25 0800 Drainage Description Sanguineous 02/01/25 0800 Odor None 02/01/25 0800 Drainage Amount Scant 02/01/25 0200 Treatments Cleansed;Site care 02/01/25 0200 Primary Dressing Other (Comment) 02/01/25 0200 Secondary Dressing ABD 02/01/25 0200 Secured with Kerlex 02/01/25 0200 Dressing Status New dressing 02/01/25 0200 Number of days: 135 Elimination: Continence: Bowel: no Bladder: no Urinary Catheter: None Colostomy/Ileostomy/Ileal Conduit: None Date of Last BM: 02/02/25 Intake/Output Summary (Last 24 hours) at 02/01/2025 1235 Last data filed at 02/01/2025 1135 Gross per 24 hour Intake 1325 ml Output 400 ml Net 925 ml I/O last 3 completed shifts: In: 2450 (25.1 mL/kg) [P.O.:350; I.V.:400 (4.1 mL/kg); IV Piggyback:1700] Out: 1250 (12.8 mL/kg) [Urine:1250 (0.4 mL/kg/hr)] Weight: 97.7 kg Safety Concerns: at risk for falls Impairments/Disabilities: none Nutrition Therapy: Current Nutrition Therapy: Oral diet: carb control 4 carbs/meal (1800kcals/day) Routes of Feeding: oral Liquids: no restrictions Daily Fluid Restriction: no Last Modified Barium Swallow with Video (Video Swallowing Test): not done Treatments at the Time of Hospital Discharge: Respiratory Treatments: NA Oxygen Therapy: is not on home oxygen therapy. Ventilator: No ventilator support Rehab Therapies: physical therapy, occupational therapy, nursing, and aide Weight Bearing Status/Restrictions: non-weight bearing R side Other Medical Equipment (for information only, NOT a DME order): bedside commode Other Treatments: None Patient's personal belongings (please select all that are sent with patient): none RN SIGNATURE: MANAGEMENT/SOCIAL WORK SECTION Inpatient Status Date: 01-26-25 Discharging to Facility/ Agency Name: [facility] Address: [address] [place] [address] [place] Fax: Dialysis Facility (if applicable) Name: Address: Dialysis Schedule: Phone: Fax: Web Page Developer/Regional Business Development Manager signature: ICIAN SECTION Name: Hanna Nelson Prognosis: good Condition at Discharge: stable Rehab Potential (if transferring to Rehab): good Recommended Labs or Other Treatments After Discharge: na The individual is being admitted to a nursing facility directly from an [facility] or a unit of a [facility] that is not operated by or licensed by [facility] under section 5119.14 or 5160-3-15.1 5 The individual requires the level of services provided by a nursing facility for the condition for which he or she was treated in the hospital and, Physician Certification: I certify the above information and transfer of Hanna Nelson is necessary for the continuing treatment of the diagnosis listed and that she requires care home facility for less than 30 days. Update Admission H&P: No change in H&P PHYSICIAN SIGNATURE: documented in this [facility]06-17-2025 NoteProblem: Knowledge Deficit Goal: Patient/family/caregiver demonstrates understanding of disease process, treatment plan, medications, and discharge instructions Outcome: [facility]06-17-2025 Plan of care note* Care Plan - Mone Gibson RN - 01/26/2025 6:57 PM EDT Problem: Knowledge Deficit Goal: Patient/family/caregiver demonstrates understanding of disease process, treatment plan, medications, and discharge instructions Outcome: Progressing [id number] Note* Care Coordination - MEREDITH Tidwell - 01/26/2025 1:52 PM EDT Copy of DPOA found in electronic record naming Hi clark as [id number] [id number] Note* Care Coordination - MEREDITH Tidwell - 01/26/2025 1:52 PM EDT Copy of DPOA found in electronic record naming Hi clark as [id number] [id number] Consult note* Prachi Victoria MD - 01/26/2025 12:51 PM EDTAssociated Order(s): IP CONSULT TO ORTHOPAEDIC SURGERY Images from the original note were not included. Ortho Consult Patient: Hanna Nelson Date of : 1940 Acct: [id number] PCP: Dorothy Medrano Date of Admission: 01/25/2025 Date of Service: Pt seen/examined on 01/26/2025 Chief Complaint: Right non-healing foot ulcer History Of Present Illness: This is a 84 y.o. female with past medical history of diabetes and bilateral diabetic neuropathy who presents with a non-healing ulcer to the right foot with signs of concomitant cellulitis. Patient is know to Dr. Alas and has been seeing him for ongoing care of their right foot ulceration with last appointment being on 12/11/2024 with plan for local wound care and close outpatient follow-up. Patient presented to [facility] ED on 01/25 due to complaints of notfeeling well. She was found to be hypertensive, tachycardic with an elevated blood gluxose. Patientwas also found to have RLE cellulitis with a right foot diabetic ulcer so orthopedic surgery was consulted for further evaluation and management. Patient reports her foot wound has been present for years. She has started to have a painful sensation in her left foot recently that is more bothersome than the right currently. Patient ambulation status: Will frequently use a cane. Antiplatelets/Anticoagulation includes: Eliquis for Afib. Illicit substance Use: denies Alcohol Use: denies Tobacco use: denies Temperature: 36 C on 01/26 at 1201 WBC: 18.4 CRP: pending ESR: pending Blood cx: pending Past Medical History: Medical History[1] Past Surgical History: Surgical History[2] Home Medications: Prior to Admission medications Medication Sig Start Date End Date Taking? Authorizing Provider Alcohol Swabs (Alcohol Prep) 70 % pads 1 Pad 3 times daily. 09/23/24 Yes Herman Pepper, DO apixaban (Eliquis) 5 MG tablet Take 5 mg by mouth 2 times daily. Yes Historical Provider, Blood Glucose Monitoring Suppl (Blood Glucose Monitor System) w/Device kit Check glucose 3x daily 09/23/24 Yes Herman Pepper, DO Continuous Glucose Sensor (FreeStyle Javier 3 Plus Sensor) misc 1 each every 15 days. 12/24/24 Yes Priscila Laguerre, 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 - NUCLEAR PLANT INSTRUMENT TECHNICIAN gabapentin (Neurontin) 300 MG capsule Take 300 mg by mouth 2 times daily. Yes Historical Provider, glucose blood test strip Use as instructed 09/17/24 09/17/25 Yes Damian Loza, DO insulin degludec (Tresiba FlexTouch) 100 UNIT/ML injection Inject under the skin Nightly. Yes Historical Provider, insulin glargine (Lantus) 100 UNIT/ML injection Inject 32 Units under the skin Nightly. 12/05/24 12/05/25 Yes Shane Rodriguez MD Lancets Check glucose x3 daily 09/23/24 Yes Herman Pepper, DO levothyroxine (Tirosint) 112 MCG capsule Take by mouth every morning (before breakfast). Yes Historical Provider, metFORMIN (Glucophage) 500 MG tablet Take 1 tablet (500 mg) by mouth 2 times daily (with meals). 09/24/24 04/22/25 Yes Herman Pepper, DO oxybutynin (Ditropan) 5 MG tablet Take 10 mg by mouth daily. Yes Historical Provider, semaglutide (Ozempic) 2 MG/3ML solution pen-injector Inject 0.5 mg under the skin 1 (one) time per week. 12/24/24 12/24/25 Yes Priscila Laguerre, 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 - NUCLEAR PLANT INSTRUMENT TECHNICIAN atenolol (Tenormin) 25 MG tablet Take 1 tablet (25 mg) by mouth 2 times daily. 12/05/24 01/12/25 Shane Rodriguez MD atorvastatin (Lipitor) 40 MG tablet Take 40 mg by mouth daily. Patient not taking: Reported on 01/25/2025 Historical Provider, ciprofloxacin (Cipro) 250 MG tablet Take 250 mg by mouth 2 times daily. Patient not taking: No sig reported Historical Provider, fenofibrate (Triglide) 160 MG tablet Take 160 mg by mouth daily. Patient not taking: Reported on 01/25/2025 Historical ProviderMD Current Hospital Medications: Current Medications[3] Allergies: Tape Social History: Social History Socioeconomic History Marital status: Spouse name: Not on file Number of children: Not on file Years of education: Not on file Highest education level: Not on file Occupational History Not on file Tobacco Use Smoking status: Former Current packs/day: 0.00 Types: Cigarettes Quit date: 1965 Years since quittin.4 Smokeless tobacco: Never Vaping Use Vaping status: Never Used Substance and Sexual Activity Alcohol use: Yes Comment: drinks bee occasionally Drug use: Never Sexual activity: Not on file Other Topics Concern Not on file Social History Narrative Not on file Social Drivers of Health Financial Resource Strain: Not on file Food Insecurity: No Food Insecurity (12/03/2024) Hunger Vital Sign Worried About Running Out of Food in the Last Year: Never true Ran Out of Food in the Last Year: Never true Transportation Needs: No Transportation Needs (12/03/2024) PRAPARE - Transportation Lack of Transportation (Medical): No Lack of Transportation (Non-Medical): No Physical Activity: Not on file Stress: Not on file Social Connections: Not on file Intimate Partner Violence: Not At Risk (12/03/2024) Humiliation, Afraid, Rape, and Kick questionnaire Fear of Current or Ex-Partner: No Emotionally Abused: No Physically Abused: No Sexually Abused: No Housing Stability: Low Risk (12/03/2024) Housing Stability Vital Sign Unable to Pay for Housing in the Last Year: No Number of Times Moved in the Last Year: 1 Homeless in the Last Year: No Family History: Family History[4] Further Family History is noncontributory to this injury. REVIEW OF SYSTEMS: Review of Systems - General ROS: negative for - chills, fatigue, fever, malaise or night sweats Psychological ROS: negative Ophthalmic ROS: negative ENT ROS: negative for - headaches or sore throat Hematological and Lymphatic ROS: negative for - bleeding problems or blood clots Respiratory ROS: no cough, shortness of breath, or wheezing Cardiovascular ROS: no chest pain or dyspnea on exertion Gastrointestinal ROS: negative Musculoskeletal ROS: See HPI Neurological ROS: negative for - bowel and bladder control changes, gait disturbance or numbness/tingling All other systems reviewed and are negative PHYSICAL EXAM: BP 114/79 (BP Location: Right arm, Patient Position: Sitting) Pulse (!) 121 Temp 36 C (96.8 F) (Temporal) Resp 17 Ht 1.778 m (5' 10") Wt 94.2 kg (207 lb 9.6 oz) SpO2 93% BMI 29.79 kg/m GENERAL APPEARANCE: Awake and oriented and alert x3. No acute distress, except appropriate to injury. MOOD AND AFFECT: Calm appropriate to situation GAIT AND STATION: Patient is in bed and unable to ambulate secondary to known injury. COORDINATION and BALANCE: Patient is grossly coordinated unable to ambulate secondary to known injury. Right Upper Extremity: -No obvious pain or deformity to inspection with normal joint range of motion, stability, and muscle strength except noted below -No TTP over clavicle, shoulder, humerus, elbow, forearm, wrist, hand, or fingers -TTP: nontender throughout extremity -Radial pulse palpable -SILT in radial/median/ ulnar nerve distributions -Motor + AIN/PIN/ulnar nerve functions -No Lymphedema -Skin intact except where noted below -Painless pROM at shoulder/elbow/wrist Left Upper Extremity: -No obvious pain or deformity to inspection with normal joint range of motion, stability, and muscle strength except noted below -No TTP over clavicle, shoulder, humerus, elbow, forearm, wrist, hand, or fingers -TTP: nontender throughout extremity -Radial pulse palpable -SILT in radial/median/ ulnar nerve distributions -Motor + AIN/PIN/ulnar nerve functions -No Lymphedema -Skin intact except where noted below -Painless pROM at shoulder/elbow/wrist Right Lower Extremity: -No obvious pain or deformity to inspection with normal joint range of motion, stability, and muscle strength except noted below -No TTP over pelvis, hip, thigh, knee, tibia, lateral mal, medial mal, calc, midfoot, forefoot -TTP: No focal tenderness, dense neuropathy throughout -Pulse: DP Palpable, PT Palpable -SILT in the superficial peroneal, deep peroneal, sural, tibial, saphenous nerve distributions; dense neuropathy to the level of the knee. -Motor function of quad, tibialis anterior, extensor hallucis longus, and gactrocsoleus complex intact -No Lymphedema -Skin intact except where noted below -Painless pROM at hip/knee/ankle Please see clinical picture below. There is an ulcer on the plantar foot with visible erythema and expressible purulence. There proximal streaking erythema up to the level of the knee. Wound does/does not probe deep to bone. DP/PT pulses palpable. Gross deformity of the ankle 2/2 charcot arthropathy. Left Lower Extremity: -No obvious pain or deformity to inspection with normal joint range of motion, stability, and muscle strength except noted below -No TTP over pelvis, hip, thigh, knee, tibia -TTP: Painful neuropathy diffusely throughout foot -Pulse: DP Palpable, PT Palpable -SILT in the superficial peroneal, deep peroneal, tibial, sural, saphenous nerve distributions; dense neuropathy to the level of the knee. -Motor function of quad, tibialis anterior, extensor hallucis longus, and gactrocsoleus complex intact -No Lymphedema -Skin intact except where noted below -Painless pROM at hip/knee/ankle Gross deformity of the ankle 2/2 charcot arthropathy. Labs: CBC: Lab Results Component Value Date WBC 18.4 (H) 01/26/2025 RBC 3.76 (L) 01/26/2025 BMP: Lab Results Component Value Date GLUCOSE 250 (H) 01/26/2025 CO2 19 (L) 01/26/2025 BUN 44 (H) 01/26/2025 CREATININE 1.44 (H) 01/26/2025 CALCIUM 8.7 (L) 01/26/2025 PT/INR: No results found for: "PT", "INR", "APTT" Type and Screen: No results found for: "RH", "LABANTI" CRP: No results found for: "CRP" ESR: No results found for: "SEDRATE" HgBA1c: No components found for: "LABA1C" The above labs were reviewed by me. Radiology: The below images were independently reviewed and interpreted with pertinent findings noted below. XR: Right foot: pending MRI: Right foot: pending Radiology reports reviewed. ASSESSMENT: 84 y.o. female with bilateral charcot arthropathy a right diabetic non-healing ulcer and concomitant cellulitis/abscess. PLAN: -will D/W Dr. Gorman -Will obtain MRI to further evaluate extent of infection. Final plan pending MRI findings. -PVRs pending, if abnormal we will consult vascular surgery -Wound care consulted -Activity as tolerated -Elevate extremity to decrease swelling -NWB RLE -Neurovascular checks/skin checks -Pain/medical management per primary team -Orthopaedic surgery will follow. Please page vp information technology orthopaedic resident for questions or concerns. Prachi Victoria MD Orthopedic Surgery PGY-2 01/26/2025 at 12:51 PM [1] Past Medical History: Diagnosis Date Atrial fibrillation (HCC) Diabetes mellitus (HCC) Hyperlipidemia Hypertension Hypothyroidism Neuropathy [2] Past Surgical History: Procedure Laterality Date BACK SURGERY CHOLECYSTECTOMY [3] Current Facility-Administered Medications: acetaminophen (Tylenol) tablet 650 mg, 650 mg, Oral, q6h PRN OR acetaminophen (Tylenol) suppository 650 mg, 650 mg, Rectal, q6h PRN, ALEJANDRINA Arroyo CNP apixaban (Eliquis) tablet 5 mg, 5 mg, Oral, BID, Tiarra Ruelas APRN - KYREE, 5 mg at 01/26/25 1033 atenolol (Tenormin) tablet 25 mg, 25 mg, Oral, BID, Tiarra Ruelas APRN - KYREE, 25 mg at 01/26/25 1208 dextrose 5 % infusion, 100 mL/hr, IntraVENous, PRN, ALEJANDRINA Arroyo CNP dextrose 50 % solution 12.5 g, 12.5 g, IntraVENous, PRN, Tiarra Ruelas APRN - KYREE gabapentin (Neurontin) capsule 300 mg, 300 mg, Oral, BID, Tiarra Ruelas APRN - KYREE, 300 mg at 01/26/25 1033 glucagon (human recombinant) injection 1 mg, 1 mg, IntraMUSCular, PRN, ALEJANDRINA Arroyo CNP glucose oral gel 15 g, 15 g, Oral, PRN, ALEJANDRINA Arroyo CNP insulin glargine (Lantus) injection 32 Units, 32 Units, SubCUTAneous, Nightly, ALEJANDRINA Arroyo CNP Insulin Lispro (Humalog) injection 0-12 Units, 0-12 Units, SubCUTAneous, TID WC, Tiarra Ruelas APRN - KYREE, 6 Units at 01/26/25 1243 Insulin Lispro (Humalog) injection 5 Units, 5 Units, SubCUTAneous, TID WC, Tiarra Ruelas APRN - KYREE, 5 Units at 01/26/25 1243 Lactobacillus 0.05-0.05 MG 4 tablet, 4 tablet, Oral, Daily, ALEJANDRINA Arroyo CNP [START ON 01/27/2025] levothyroxine (Synthroid, Levoxyl) tablet 112 mcg, 112 mcg, Oral, qAM AC, ALEJANDRINA Arroyo CNP metoprolol tartrate (Lopressor) injection 5 mg, 5 mg, IntraVENous, q6h PRN, PACO Arroyo CNP ondansetron ODT (Zofran-ODT) disintegrating tablet 4 mg, 4 mg, Oral, q8h PRN OR ondansetron (Zofran) injection 4 mg, 4 mg, IntraVENous, q6h PRN, ALEJANDRINA Arroyo CNP piperacillin-tazobactam (Zosyn) 4,500 mg in sodium chloride 0.9 % 100 mL IVPB Mini-Bag Plus, 4,500 mg, IntraVENous, q6h, Ramiro Crawford MD polyethylene glycol (PEG) 3350 (Miralax) packet 17 g, 17 g, Oral, Daily PRN, ALEJANDRINA Arroyo CNP sodium chloride 0.9 % infusion, 5-250 mL/hr, IntraVENous, PRN, Sanjuanita Conley MD sodium chloride 0.9 % infusion, 75 mL/hr, IntraVENous, Continuous, ALEJANDRINA Arroyo CNP, Last Rate: 75 mL/hr at 01/26/25 1207, 75 mL/hr at 01/26/25 1207 sodium chloride 0.9% (NS) flush 5-40 mL, 5-40 mL, IntraVENous, 2 times per day, Sanjuanita Conley MD, 10 mL at 01/26/25 1223 sodium chloride 0.9% (NS) flush 5-40 mL, 5-40 mL, IntraVENous, PRN, Sanjuanita Conley MD vancomycin IVPB 1250 mg in 250 mL NS (premix), 1,250 mg, IntraVENous, q24h, Ramiro Crawford MD [4] No family history on file. Cosigned by Regine Bansal DPM at 01/29/2025 8:41 AM EDT [id number] Note* Care Coordination - Mag Chaney RN - 01/26/2025 11:18 AM EDT Pt came to ER with c/o generalized illness. BP, BR and BS are all up. Started on IV antibiotics forskin infection. Needs a vascular US. Wants to go home, will follow for needs... [place] [id number] Note* Care Coordination - Mag Chaney RN - 01/26/2025 11:18 AM EDT Pt came to ER with c/o generalized illness. BP, BR and BS are all up. Started on IV antibiotics forskin infection. Needs a vascular US. Wants to go home, will follow for needs... [place] [id number] History and physical note* Tiarra Ruelas, 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 - NUCLEAR PLANT INSTRUMENT TECHNICIAN - 01/26/2025 9:31 AM EDT Attending History and Physical Admit Date: 01/25/2025 PCP: Dorothy Medrano CHIEF COMPLAINT: feeling unwell Reason for Admission: Sepsis, RLE cellulitis, AF RVR History Obtained From: patient, son, [facility] HISTORY OF PRESENT ILLNESS: Hanna is a 84 y.o. female with past medical history T2DM, neuropathy, HTN, HLD, Atrial fibrillation on Eliquis, hypothyroidism, obesity. Patient was last discharged from [facility] 12/02/24, during that admission was treated for acute metabolic encephalopathy 2/2 Klebsiella UTI, she was treated with Ceftriaxone x3 days and improved. She presents back to [place] ER on 01/25 with generalized malaise, hypertension, tachycardia and hyperglycemia. Son, who was bedside provided most of history. He states patient has been doing well, BP and blood sugars have been controlled. He states patient was going to wound care for right foot ulcer and this was healing. They did miss the last wound care appointment. Son states yesterday the patient developed elevated blood pressures, elevated blood sugars and was not feeling well prompting ER evaluation. Patient denied fevers, chills, CP, SOB, abdominal pain, N/V/D. No urinary symptoms. She reports pain to her left foot and calf at times, reports this as sharp. Also noted to have RLE saqib thema, swelling and worsening right foot wound. Labwork on admission showed leukocytosis 27, CO2 22, BUN 43, creatinine 1.45. Troponin 10, 18, 24. Lactic acid 2.6 with repeat 1.8. UA showed 3-5 WBC, negative nitrites or leukocyte esterase. Covid/flu/rsv negative. EKG read AF with RVR. CT A/P showed no acute findings. CXR showed Coarsening of the interstitial lung markings is likely chronic. No focal consolidation is identified. Patient initially afebrile, T trended up to 38.5, hypertensive 158/68, on room air. HR as elevated at 151. Patient met sepsis criteria. Patient given 1.7LNS bolus, Rocephin, Tylenol in the ER. Transferred to [facility]. Past Medical History: Medical History[1] Past Surgical History: Surgical History[2] Social History: Social History Socioeconomic History Marital status: Spouse name: Not on file Number of children: Not on file Years of education: Not on file Highest education level: Not on file Occupational History Not on file Tobacco Use Smoking status: Former Current packs/day: 0.00 Types: Cigarettes Quit date: 1964 Years since quittin.4 Smokeless tobacco: Never Vaping Use Vaping status: Never Used Substance and Sexual Activity Alcohol use: Yes Comment: drinks bee occasionally Drug use: Never Sexual activity: Not on file Other Topics Concern Not on file Social History Narrative Not on file Social Drivers of Health Financial Resource Strain: Not on file Food Insecurity: No Food Insecurity (12/03/2024) Hunger Vital Sign Worried About Running Out of Food in the Last Year: Never true Ran Out of Food in the Last Year: Never true Transportation Needs: No Transportation Needs (12/03/2024) PRAPARE - Transportation Lack of Transportation (Medical): No Lack of Transportation (Non-Medical): No Physical Activity: Not on file Stress: Not on file Social Connections: Not on file Intimate Partner Violence: Not At Risk (12/03/2024) Humiliation, Afraid, Rape, and Kick questionnaire Fear of Current or Ex-Partner: No Emotionally Abused: No Physically Abused: No Sexually Abused: No Housing Stability: Low Risk (12/03/2024) Housing Stability Vital Sign Unable to Pay for Housing in the Last Year: No Number of Times Moved in the Last Year: 1 Homeless in the Last Year: No Family History: Family History[3] Medications Prior to Admission: Current Medications[4] Medications Reconciliation: Medication were reviewed and verified as accurate with patient. Allergies: Allergies[5] REVIEW OF SYSTEMS: 10 point ROS obtained, as per HPI, otherwise NEG Vitals: BP 113/68 (BP Location: Left arm, Patient Position: Sitting) Pulse 95 Temp 36.4 C (97.6 F) (Temporal) Resp 17 Ht 5' 10" (1.778 m) Wt 207 lb 9.6 oz (94.2 kg) SpO2 96% BMI 29.79 kg/m BMI Classification: Overweight (BMI 25.0-29.9) Pulse Ox: SpO2 Av.7 % Min: 93 % Max: 99 % Supplemental O2: PHYSICAL EXAM: Physical Exam Physical Exam Vitals and nursing note reviewed. Constitutional: Appearance: No acute distress HENT: Mouth/Throat: wnl Pharynx: Oropharynx is clear. Eyes: Conjunctiva/sclera: Conjunctivae normal. Cardiovascular: Rate and Rhythm: Normal rate. Heart sounds: No murmur heard. Pulmonary: Effort: Pulmonary effort is normal. No respiratory distress. Breath sounds: No wheezing or rales. Abdominal: General: Bowel sounds are normal. Musculoskeletal: Right lower leg: Trace Edema present. +Erythema, edema to RLE. +ulceration to bottom of right foot Left lower leg: Trace Edema present. Skin: General: Skin is warm. Capillary Refill: Capillary refill takes less than 2 seconds. Coloration: Skin is pale. Neurological: General: No focal deficit present. Mental Status: She is alert and oriented to person, place, and time. DATA: CBC: Recent Labs 01/25/25 2306 WBC 27.0* RBC 4.22 HGB 12.8 HCT 38.6 MCV 91.5 RDW 14.2 PLT 244 BMP: Recent Labs 01/25/25 2306 NA 139 K 4.6 CL 105 CO2 22* BUN 43* CREATININE 1.45* GLUCOSE 351* CALCIUM 9.4 ANIONGAP 12 LIVER PROFILE:No results for input(s): "AST", "ALT", "BILITOT", "ALKPHOS", "PROT" in the last 72 hours. No lab exists for component: "LABALBU" PT/INR: No results for input(s): "PROTIME", "INR" in the last 72 hours. CARDIAC ENZYMES: No results for input(s): "TROPONINI" in the last 72 hours. Procalcitonin: No results found for: "PROCAL" Urine Culture: Results for orders placed or performed in visit on 12/23/24 Urine culture Collection Time: 12/23/24 2:25 PM Specimen: Urine, Clean Catch Result Value Ref Range Urine Culture Normal urogenital fabio present COVID-19 PCR: No results for input(s): "COVID19" in the last 72 hours. I reviewed: [x] laboratory results [x] radiographic results At the time of today's encounter. Pt was advised of the results. Data: (CAT1) Reviewed 3 or more notes from different specialty or health system (each=1). (CAT1) Reviewed 3 or more labs/studies ordered by another provider not previously counted (each=1, panels count as 1). (LOW: 2x CAT1 or independent historian MOD: 3x CAT1 or 1x CAT3 EXTENSIVE: 3x CAT1 and 1x CAT3) Assessment Discussed management with the ED provider and agree with hospitalization. Acute, acute on chronic, unstable/uncontrolled chronic problems/diagnoses: Sepsis RLE cellulitis Right foot diabetic ulceration Leukocytosis Lactic acidosis NAYELY AF RVR Elevated troponin T2DM with hyperglycemia -A1c 9.0 Stable chronic problems affecting care, new non-acute diagnoses: Hypothyroidism Neuropathy HTN HLD Plan As a result of the above findings & factors, the following mgmt was pursued: - s/p fluid resuscitation, lactic acidosis resolved. No confusion on exam. - Continue Ceftriaxone, UA not concerning for infection, no urinary sx, cx pending. BC show no growth to date, will follow - Wound culture ordered for right foot wound, no significant drainage, will consult wound team. Check ESR/CRP - Suspect infection 2/2 RLE cellulitis in setting of worsening right foot ulcer - Will check Doppler BLE for completeness although likely negative as patient reports compliance with Eliquis - Will repeat CBC/CMP today, monitor NAYELY - HR improved, will resume home Atenolol, Eliquis. Can consider cardiology consult if HR remain elevated - Elevated troponin, likely type II MO in setting of AF RVR, infection. No CP, EKG without ischemia. - Resume Lantus 32 units nightly, add SSI, ADA diet - Resume Synthroid, gabapentin - am labs, replace lytes prn - PT/OT/CM/SW - delirium precautions: increase activity and limit nighttime disturbances - DVT prophylaxis: encourage ambulation and already anticoagulated - Full code-confirmed with patient at bedside Complexity: Acute illness or injury posing a threat to life or body function (HIGH). Risk: Admission to hospital-level care was considered or occurred (HIGH). Advance Directive: Prior Anticipated Discharge - Date - TBD - Location - Home - Pending the following - clinical course Total time spent (which include face to face and non face to face encounters) : 80 minutes. Extended Emergency Contact Information Primary Emergency Contact: Hi Nelson Relation: Son Preferred language: Burmese Metal Bumper needed? No Secondary Emergency Contact: Melba [facility] Mobile Relation: Daughter [employer] Hanna Nelson : 1940 Primary Care Physician: Dorothy Medrano The patient and/or family/surrogate voluntarily agreed to participate in ACP services. Code Status: [x_] [FULL CODE - Continue all advanced life support: CPR,intubation,invasive procedures] [_] [DNR-CCA - DO NOT do CPR, intubation] [_] [DNR-DRILL BIT SHARPENER - Comfort care only] [_] DNR form [was/was not] signed [Condition that instigated the ACP on this DOS, relevant PMH, functional status, goals of care, andwhom this was discussed with including names and relationship to the patient, and any relevant advance care documentation discussion] I answered all the patient/family questions that I could within the range and scope of the current medical situation. We discussed the medical conditions, risks, benefits, outcomes, and goals of careat this time for the patient's medical issues at hand in the face of the patient's chronic issues and current presentation. Total time spent: 5 minutes were spent discussing the patient's resuscitation status, advance care planning, and end of life care, with patient and/or family/surrogate. ALEJANDRINA Powers CNP Division of Hospitalist Medicine [facility] [1] Past Medical History: Diagnosis Date Atrial fibrillation (HCC) Diabetes mellitus (HCC) Hyperlipidemia Hypertension Hypothyroidism Neuropathy [2] Past Surgical History: Procedure Laterality Date BACK SURGERY CHOLECYSTECTOMY [3] No family history on file. [4] Current Facility-Administered Medications: sodium chloride 0.9 % infusion, 5-250 mL/hr, IntraVENous, PRN, Sanjuanita Conley MD sodium chloride 0.9% (NS) flush 5-40 mL, 5-40 mL, IntraVENous, 2 times per day, Sanjuanita Conley MD sodium chloride 0.9% (NS) flush 5-40 mL, 5-40 mL, IntraVENous, PRN, Sanjuanita Conley MD [5] Allergies Allergen Reactions Tape Rash Cosigned by Ramiro Crawford MD at 01/26/2025 1:57 PM EDT [facility] [employer] Phone: [phone] 421-798106-17-2025 [facility]06-17-2025 History and physical note* ALEJANDRINA Arroyo CNP - 01/26/2025 9:31 AM EDT Attending History and Physical Admit Date: 01/25/2025 PCP: Dorothy Mderano CHIEF COMPLAINT: feeling unwell Reason for Admission: Sepsis, RLE cellulitis, AF RVR History Obtained From: patient, son, DIL HISTORY OF PRESENT ILLNESS: Hanna is a 84 y.o. female with past medical history T2DM, neuropathy, HTN, HLD, Atrial fibrillation on Eliquis, hypothyroidism, obesity. Patient was last discharged from [facility] 12/02/24, during that admission was treated for acute metabolic encephalopathy 2/2 Klebsiella UTI, she was treated with Ceftriaxone x3 days and improved. She presents back to [place] ER on 01/25 with generalized malaise, hypertension, tachycardia and hyperglycemia. Son, who was bedside provided most of history. He states patient has been doing well, BP and blood sugars have been controlled. He states patient was going to wound care for right foot ulcer and this was healing. They did miss the last wound care appointment. Son states yesterday the patient developed elevated blood pressures, elevated blood sugars and was not feeling well prompting ER evaluation. Patient denied fevers, chills, CP, SOB, abdominal pain, N/V/D. No urinary symptoms. She reports pain to her left foot and calf at times, reports this as sharp. Also noted to have RLE saqib thema, swelling and worsening right foot wound. Labwork on admission showed leukocytosis 27, CO2 22, BUN 43, creatinine 1.45. Troponin 10, 18, 24. Lactic acid 2.6 with repeat 1.8. UA showed 3-5 WBC, negative nitrites or leukocyte esterase. Covid/flu/rsv negative. EKG read AF with RVR. CT A/P showed no acute findings. CXR showed Coarsening of the interstitial lung markings is likely chronic. No focal consolidation is identified. Patient initially afebrile, T trended up to 38.5, hypertensive 158/68, on room air. HR as elevated at 151. Patient met sepsis criteria. Patient given 1.7LNS bolus, Rocephin, Tylenol in the ER. Transferred to [facility]. Past Medical History: Medical History[1] Past Surgical History: Surgical History[2] Social History: Social History Socioeconomic History Marital status: Spouse name: Not on file Number of children: Not on file Years of education: Not on file Highest education level: Not on file Occupational History Not on file Tobacco Use Smoking status: Former Current packs/day: 0.00 Types: Cigarettes Quit date: 1965 Years since quittin.4 Smokeless tobacco: Never Vaping Use Vaping status: Never Used Substance and Sexual Activity Alcohol use: Yes Comment: drinks bee occasionally Drug use: Never Sexual activity: Not on file Other Topics Concern Not on file Social History Narrative Not on file Social Drivers of Health Financial Resource Strain: Not on file Food Insecurity: No Food Insecurity (12/03/2024) Hunger Vital Sign Worried About Running Out of Food in the Last Year: Never true Ran Out of Food in the Last Year: Never true Transportation Needs: No Transportation Needs (12/03/2024) PRAPARE - Transportation Lack of Transportation (Medical): No Lack of Transportation (Non-Medical): No Physical Activity: Not on file Stress: Not on file Social Connections: Not on file Intimate Partner Violence: Not At Risk (12/03/2024) Humiliation, Afraid, Rape, and Kick questionnaire Fear of Current or Ex-Partner: No Emotionally Abused: No Physically Abused: No Sexually Abused: No Housing Stability: Low Risk (12/03/2024) Housing Stability Vital Sign Unable to Pay for Housing in the Last Year: No Number of Times Moved in the Last Year: 1 Homeless in the Last Year: No Family History: Family History[3] Medications Prior to Admission: Current Medications[4] Medications Reconciliation: Medication were reviewed and verified as accurate with patient. Allergies: Allergies[5] REVIEW OF SYSTEMS: 10 point ROS obtained, as per HPI, otherwise NEG Vitals: BP 113/68 (BP Location: Left arm, Patient Position: Sitting) Pulse 95 Temp 36.4 C (97.6 F) (Temporal) Resp 17 Ht 5' 10" (1.778 m) Wt 207 lb 9.6 oz (94.2 kg) SpO2 96% BMI 29.79 kg/m BMI Classification: Overweight (BMI 25.0-29.9) Pulse Ox: SpO2 Av.7 % Min: 93 % Max: 99 % Supplemental O2: PHYSICAL EXAM: Physical Exam Physical Exam Vitals and nursing note reviewed. Constitutional: Appearance: No acute distress HENT: Mouth/Throat: wnl Pharynx: Oropharynx is clear. Eyes: Conjunctiva/sclera: Conjunctivae normal. Cardiovascular: Rate and Rhythm: Normal rate. Heart sounds: No murmur heard. Pulmonary: Effort: Pulmonary effort is normal. No respiratory distress. Breath sounds: No wheezing or rales. Abdominal: General: Bowel sounds are normal. Musculoskeletal: Right lower leg: Trace Edema present. +Erythema, edema to RLE. +ulceration to bottom of right foot Left lower leg: Trace Edema present. Skin: General: Skin is warm. Capillary Refill: Capillary refill takes less than 2 seconds. Coloration: Skin is pale. Neurological: General: No focal deficit present. Mental Status: She is alert and oriented to person, place, and time. DATA: CBC: Recent Labs 01/25/25 2306 WBC 27.0* RBC 4.22 HGB 12.8 HCT 38.6 MCV 91.5 RDW 14.2 PLT 244 BMP: Recent Labs 01/25/25 2306 NA 139 K 4.6 CL 105 CO2 22* BUN 43* CREATININE 1.45* GLUCOSE 351* CALCIUM 9.4 ANIONGAP 12 LIVER PROFILE:No results for input(s): "AST", "ALT", "BILITOT", "ALKPHOS", "PROT" in the last 72 hours. No lab exists for component: "LABALBU" PT/INR: No results for input(s): "PROTIME", "INR" in the last 72 hours. CARDIAC ENZYMES: No results for input(s): "TROPONINI" in the last 72 hours. Procalcitonin: No results found for: "PROCAL" Urine Culture: Results for orders placed or performed in visit on 12/23/24 Urine culture Collection Time: 12/23/24 2:25 PM Specimen: Urine, Clean Catch Result Value Ref Range Urine Culture Normal urogenital fabio present COVID-19 PCR: No results for input(s): "COVID19" in the last 72 hours. I reviewed: [x] laboratory results [x] radiographic results At the time of today's encounter. Pt was advised of the results. Data: (CAT1) Reviewed 3 or more notes from different specialty or health system (each=1). (CAT1) Reviewed 3 or more labs/studies ordered by another provider not previously counted (each=1, panels count as 1). (LOW: 2x CAT1 or independent historian MOD: 3x CAT1 or 1x CAT3 EXTENSIVE: 3x CAT1 and 1x CAT3) Assessment Discussed management with the ED provider and agree with hospitalization. Acute, acute on chronic, unstable/uncontrolled chronic problems/diagnoses: Sepsis RLE cellulitis Right foot diabetic ulceration Leukocytosis Lactic acidosis NAYELY AF RVR Elevated troponin T2DM with hyperglycemia -A1c 9.0 Stable chronic problems affecting care, new non-acute diagnoses: Hypothyroidism Neuropathy HTN HLD Plan As a result of the above findings & factors, the following mgmt was pursued: - s/p fluid resuscitation, lactic acidosis resolved. No confusion on exam. - Continue Ceftriaxone, UA not concerning for infection, no urinary sx, cx pending. BC show no growth to date, will follow - Wound culture ordered for right foot wound, no significant drainage, will consult wound team. Check ESR/CRP - Suspect infection 2/2 RLE cellulitis in setting of worsening right foot ulcer - Will check Doppler BLE for completeness although likely negative as patient reports compliance with Eliquis - Will repeat CBC/CMP today, monitor NAYELY - HR improved, will resume home Atenolol, Eliquis. Can consider cardiology consult if HR remain elevated - Elevated troponin, likely type II MO in setting of AF RVR, infection. No CP, EKG without ischemia. - Resume Lantus 32 units nightly, add SSI, ADA diet - Resume Synthroid, gabapentin - am labs, replace lytes prn - PT/OT/CM/SW - delirium precautions: increase activity and limit nighttime disturbances - DVT prophylaxis: encourage ambulation and already anticoagulated - Full code-confirmed with patient at bedside Complexity: Acute illness or injury posing a threat to life or body function (HIGH). Risk: Admission to hospital-level care was considered or occurred (HIGH). Advance Directive: Prior Anticipated Discharge - Date - TBD - Location - Home - Pending the following - clinical course Total time spent (which include face to face and non face to face encounters) : 80 minutes. Extended Emergency Contact Information Primary Emergency Contact: LeslieHi Relation: Son Preferred language: Burmese Metal Bumper needed? No Secondary Emergency Contact: Melba Black [facility] [place] [employer] Relation: Daughter [employer] Hanna Nelson : 1940 Primary Care Physician: Dorothy Medrano The patient and/or family/surrogate voluntarily agreed to participate in ACP services. Code Status: [x_] [FULL CODE - Continue all advanced life support: CPR,intubation,invasive procedures] [_] [DNR-CCA - DO NOT do CPR, intubation] [_] [DNR-DRILL BIT SHARPENER - Comfort care only] [_] DNR form [was/was not] signed [Condition that instigated the ACP on this DOS, relevant PMH, functional status, goals of care, andwhom this was discussed with including names and relationship to the patient, and any relevant advance care documentation discussion] I answered all the patient/family questions that I could within the range and scope of the current medical situation. We discussed the medical conditions, risks, benefits, outcomes, and goals of careat this time for the patient's medical issues at hand in the face of the patient's chronic issues and current presentation. Total time spent: 5 minutes were spent discussing the patient's resuscitation status, advance care planning, and end of life care, with patient and/or family/surrogate. ALEJANDRINA Powers CNP Division of Hospitalist Medicine [facility] [1] Past Medical History: Diagnosis Date Atrial fibrillation (HCC) Diabetes mellitus (HCC) Hyperlipidemia Hypertension Hypothyroidism Neuropathy [2] Past Surgical History: Procedure Laterality Date BACK SURGERY CHOLECYSTECTOMY [3] No family history on file. [4] Current Facility-Administered Medications: sodium chloride 0.9 % infusion, 5-250 mL/hr, IntraVENous, PRN, Sanjuanita Conley MD sodium chloride 0.9% (NS) flush 5-40 mL, 5-40 mL, IntraVENous, 2 times per day, Sanjuanita Conley MD sodium chloride 0.9% (NS) flush 5-40 mL, 5-40 mL, IntraVENous, PRN, Sanjuanita Conley MD [5] Allergies Allergen Reactions Tape Rash Cosigned by Ramiro Crawford MD at 01/26/2025 1:57 PM EDT documented in this [facility]06-17-2025 Nurse Note* Mone Gibson RN - 01/26/2025 8:55 AM EDT Pt admitted to 543b, vss, call light in reach, bed low and locked, made aware of pt admit and ptdaughter was called to inform her of pt move [id number] Nurse Note* Mone Gibson RN - 01/26/2025 8:55 AM EDT Pt admitted to 543b, vss, call light in reach, bed low and locked, made aware of pt admit and ptdaughter was called to inform her of pt move documented in this [address]17-2025 Emergency department Note* Lashell Martinez RN - 01/26/2025 8:00 AM EDT Dimitris Rae arrived for transport. Hand off report given to medic. [id number] Emergency department Note* Lashell Martinez RN - 01/26/2025 8:00 AM EDT Dimitris Rae arrived for transport. Hand off report given to medic. * Celine Reyna RN - 01/26/2025 5:27 AM EDT Report Called to Robbie PIERSON [address] Me[address]. * Sanjuanita Conley MD - 01/25/2025 10:34 PM EDT EMERGENCY DEPARTMENT ENCOUNTER Pt Name: Hanna Nelson Birthdate 1940 Date of evaluation: 01/25/2025 ED Provider: Marcela Conley MD CHIEF COMPLAINT Chief Complaint Patient presents with Illness Generally not feeling well HISTORY OF PRESENT ILLNESS (Location/Symptom, Timing/Onset, Context/Setting, Quality, Duration, Modifying Factors, Severity) Note limiting factors. I wore appropriate PPE for the entirety of this encounter. HPI Hanna Nelson is a 84 y.o. female who presents to the emergency department with chief complaint offeeling unwell. Part of the history is provided by her son and daughter at the bedside, who states that this evening, her blood pressure was 165/125, her heart rate was 117, and her blood sugar was greater than 300. The patient endorses compliance with her insulin. She denies any chest pain or shortness of breath. Her son and daughter report a history of frequent urinary tract infections. The patient denies any hematuria or dysuria. Nursing Notes were reviewed. Limitations to history: None Outside historians: Family : son and daughter REVIEW OF SYSTEMS Review of Systems Pertinent positives and negatives as per HPI. PAST MEDICAL HISTORY Medical History[1] SURGICAL HISTORY Surgical History[2] CURRENT MEDICATIONS Previous Medications ALCOHOL SWABS (ALCOHOL PREP) 70 % PADS 1 Pad 3 times daily. APIXABAN (ELIQUIS) 5 MG TABLET Take 5 mg by mouth 2 times daily. ATENOLOL (TENORMIN) 25 MG TABLET Take 1 tablet (25 mg) by mouth 2 times daily. ATORVASTATIN (LIPITOR) 40 MG TABLET Take 40 mg by mouth daily. BLOOD GLUCOSE MONITORING SUPPL (BLOOD GLUCOSE MONITOR SYSTEM) W/DEVICE KIT Check glucose 3x daily CIPROFLOXACIN (CIPRO) 250 MG TABLET Take 250 mg by mouth 2 times daily. CONTINUOUS GLUCOSE SENSOR (FREESTYLE JAVIER 3 PLUS SENSOR) MISC 1 each every 15 days. FENOFIBRATE (TRIGLIDE) 160 MG TABLET Take 160 mg by mouth daily. GABAPENTIN (NEURONTIN) 300 MG CAPSULE Take 300 mg by mouth 2 times daily. GLUCOSE BLOOD TEST STRIP Use as instructed INSULIN DEGLUDEC (TRESIBA FLEXTOUCH) 100 UNIT/ML INJECTION Inject under the skin Nightly. INSULIN GLARGINE (LANTUS) 100 UNIT/ML INJECTION Inject 32 Units under the skin Nightly. LANCETS Check glucose x3 daily LEVOTHYROXINE (TIROSINT) 112 MCG CAPSULE Take by mouth every morning (before breakfast). METFORMIN (GLUCOPHAGE) 500 MG TABLET Take 1 tablet (500 mg) by mouth 2 times daily (with meals). OXYBUTYNIN (DITROPAN) 5 MG TABLET Take 10 mg by mouth daily. SEMAGLUTIDE (OZEMPIC) 2 MG/3ML SOLUTION PEN-INJECTOR Inject 0.5 mg under the skin 1 (one) time per week. ALLERGIES Tape FAMILY HISTORY Family History[3] SOCIAL HISTORY Social History[4] SCREENINGS PHYSICAL EXAM ED Triage Vitals Temp Heart Rate Resp BP 01/25/25 2311 01/25/25 2240 01/25/25 2240 01/25/25 2241 37 C (98.6 F) 71 18 (!) 158/68 SpO2 Temp Source Heart Rate Source Patient Position 01/25/25 2240 01/25/25 2311 01/25/25 2240 01/25/25 2241 95 % Oral Monitor Sitting BP Location FiO2 (%) 01/25/25 2241 -- Right arm Physical Exam Vitals and nursing note reviewed. Constitutional: General: She is not in acute distress. Appearance: She is well-developed. HENT: Head: Normocephalic and atraumatic. Eyes: Conjunctiva/sclera: Conjunctivae normal. Cardiovascular: Rate and Rhythm: Tachycardia present. Rhythm irregular. Heart sounds: No murmur heard. Pulmonary: Effort: Pulmonary effort is normal. No respiratory distress. Breath sounds: Normal breath sounds. Abdominal: Palpations: Abdomen is soft. Tenderness: There is no abdominal tenderness. Feet: Comments: Charcot foot bilaterally, well appearing ulcer to the medial right dorsum of the foot that her son and daughter state has been under wound care. Strong palpable bilateral dorsalis pedis pulses. Skin: General: Skin is warm and dry. Neurological: Mental Status: She is alert. Psychiatric: Mood and Affect: Mood normal. DIAGNOSTIC RESULTS Procedures/EKG: Interpretation per the Radiologist below, if available at the time of this note: XR chest 1 view Final Result Coarsening of the interstitial lung markings is likely chronic. No focal consolidation is identified. Report Dictated on Electronically Signed By: Herman Hein MD Electronically Signed Date/Time: 01/26/2025 1:[address] abdomen pelvis w contrast Final Result No acute findings are seen on this examination to explain the patient's pain. Report Dictated on Electronically Signed By: Herman Hein MD Electronically Signed Date/Time: 01/26/2025 1:41 AM EDT ED BEDSIDE ULTRASOUND: Performed by ED Physician - none LABS: Labs Reviewed CBC WITH AUTO DIFFERENTIAL - Abnormal Result Value Auto WBC 27.0 (*) RBC 4.22 Hemoglobin 12.8 Hematocrit 38.6 MCV 91.5 MCH 30.3 MCHC 33.2 RDW 14.2 Platelets 244 MPV 10.8 nRBC 0.0 BASIC METABOLIC PANEL - Abnormal SODIUM 139 POTASSIUM 4.6 CHLORIDE 105 CARBON DIOXIDE 22 (*) UREA NITROGEN 43 (*) CREATININE 1.45 (*) GLUCOSE 351 (*) CALCIUM 9.4 ANION GAP 12 eGFR 35.4 (*) COMPLETE URINALYSIS WITH REFLEX TO CULTURE - Abnormal Color, Urine Colorless Clarity, Urine Clear pH, Urine 6.0 Leukocytes, Urine Negative Nitrite, Urine Negative Protein, Urine 20 (*) Glucose, Urine >1,000 (*) Bilirubin, Urine Negative Ketones, Urine Negative Urobilinogen, Urine Normal Blood, Urine Negative Volume, Urine 12 mL RBC, Urine 0-2 WBC, Urine 3-5 Squamous Epithelial, Urine 3-5 Non-Squamous Epithalial Cells, Urine 3-5 (*) Bacteria, Urine Negative SPECIFIC GRAVITY OF URINE (NUMERIC) 1.013 Narrative: A specimen with <=10 WBC is not consistent with inflammation. This specimen will not reflex to aurine culture. MANUAL DIFFERENTIAL - Abnormal Adjusted WBC 27.0 (*) Neutrophils % 89 (*) Lymphocytes % 3 (*) Monocytes % 7 Eosinophils % 0 Basophils % 0 Unclassified Cells % 1.00 Absolute Neutrophil Count 24.0 (*) Lymphocytes Absolute 0.8 (*) Monocytes Absolute 1.9 (*) Eosinophils Absolute 0.0 Basophils Absolute 0.0 Unclassified Cells, Abs. 0.3 RBC Morphology Normal Toxic Granulation Present (*) PLT Morphology Normal Total Counted 100 Neutrophils Manual 89 Lymphocytes Manual 3 Monocytes Manual 7 Eosinophils Manual 0 Basophils Manual 0 Differential Method Value: Automated differential reported after manual slide review HIGH SENSITIVITY TROPONIN, SERIAL, SECOND TEST - Abnormal 2h Troponin HS (Serial 2nd Troponin) 18 (*) LACTIC ACID WITH REFLEX - Abnormal LACTIC ACID 2.6 (*) POCT GLUCOSE METER UNSOLICITED RESULTS - Abnormal Glucose 345 (*) Narrative: Performed by: Rodrigo Garcia, [address] [place] [address] CLIA ID: [id number] SARS-COV-2, FLU A/B, AND RSV COMBO - Normal SARS-CoV-2 Not Detected Respiratory Syncytial Virus Not Detected Influenza A Not Detected Influenza B Not Detected Narrative: Methodology: real-time, RT-PCR The SARS-CoV-2, Flu A/B, and RSV Combo assay is intended for in vitro diagnostic use under the FDA Emergency Use Authorization (EUA). This test has not been FDA cleared or approved. In compliance with this authorization, please visit www.fda.gov/media/934993/download or www.fda.gov/media/526403/download to access the applicable information sheets. THYROID STIMULATING HORMONE - Normal THYROID STIMULATING HORMONE 1.44 FREE T4 - Normal FREE T4 1.20 T3 FREE - Normal T3, FREE 2.25 HIGH SENSITIVITY TROPONIN, SERIAL BASELINE - Normal Troponin HS Serial Baseline 10 BLOOD CULTURE BLOOD CULTURE HIGH SENSITIVITY TROPONIN, SERIAL, THIRD TEST LACTIC ACID WITH REFLEX All other labs were within normal range or not returned as of this dictation. EMERGENCY DEPARTMENT COURSE and DIFFERENTIAL DIAGNOSIS/MDM: Vitals: Vitals: 01/26/25 0019 01/26/25 0041 01/26/25 0238 01/26/25 0242 BP: (!) 147/61 BP Location: Left arm Patient Position: Pulse: (!) 137 (!) 126 (!) 128 Resp: 20 Temp: 37.9 C (100.3 F) (!) 38.5 C (101.3 F) TempSrc: Oral SpO2: 96% Weight: Height: The patient presented with a chief complaint of feeling unwell The differential diagnosis associated with this patient's presentation includes but is not limited to: Presentation concerning for symptoms secondary to hyperglycemia versus DKA versus infectious etiology such as pneumonia or UTI versus electrolyte abnormalities. Denies chest pain or shortness of breath and I am less concerned for ACS Our workup consisted of ordering/reviewing: CBC, BMP, TSH, T4, urinalysis, chest x-ray, EKG I reviewed external records from: PDMP demonstrating 8 prescriptions, to include gabapentin and Dobbins Blood work significant for an elevated glucose of 345 but anion gap within normal limits at 12 and she is not in DKA. Creatinine of 1.45, consistent with previous baseline values. Marked leukocytosisof 27, but her son and daughter states that she is not on steroids. CT abdomen pelvis added. Thyroid studies within normal limits. Urinalysis negative for bacteria. Troponin 10. CT abdomen pelvis negative for acute processes. Chest x-ray negative for acute processes. Patient could be experiencing bacteremia. Patient care discussed with: Dr. aCn, [facility] hospitalist, who has agreed to accept the patient for admission. Requested blood cultures and COVID swab. APR- CORE MEASURE DATA SIRS Criteria Sepsis Criteria Severe Sepsis Criteria Septic Shock Criteria Must meet 2: [] Temperature > 100.4 F (38 C) or < 96.8 F (36 C) [x] HR > 90 [] RR > 20 [x] WBC > 12 or < 4 or 10% bands Must be confirmed or suspected to move forward with diagnosis of sepsis. Must select at least one: [x] Bacterial Infection Confirmed or Suspected. [] Viral Infection Confirmed or Suspected. [] No infection present. Patient does not meet criteria for Sepsis. Must meet 1: [x] Lactate > 2 or [] Signs of Organ Dysfunction: - SBP < 90 or MAP < 65 - Altered mental status - Creatinine > 2 or increased from baseline - Urine Output < 0.5 ml/kg/hr - Bilirubin > 2 - INR > 1.5 - Platelets < 100,000 - Acute Respiratory Failure as evidenced by new need for NIPPV or mechanical ventilation [] No criteria met for Severe Sepsis. Must meet 1: [] Lactate = or > 4 or [] SBP < 90 or MAP < 65 for at least two readings in the first hour after fluid bolus administration [x] No criteria met for Septic Shock. Patient Vitals from 01/25/25 2301 to 01/26/25 0000 Temp Temp src Pulse Resp SpO2 01/25/25 2311 37 C (98.6 F) Oral -- -- -- 01/26/25 0000 -- -- (!) 151 20 93 % Recent Labs 01/25/25 2306 01/26/25 0233 WBC 27.0* -- LACTATE -- 2.6* CREATININE 1.45* -- PLT 244 -- Sepsis Identified at 0000 hours. Fluid Resuscitation Rational: at least 30mL/kg based on entered actual body weight at time of triage Infection Source: Unknown Reassessment Exam: Not applicable. Patient does not have Septic Shock. Marcela Conley MD Consideration for escalation of care with: Admission. The patient requires hospitalization due to leukocytosis, tachycardia Patient's care was impacted by history of atrial fibrillation. The patient will be admitted The patient is in agreement with this plan. Diagnoses as of 01/26/25416 Bacteremia SIRS (systemic inflammatory response syndrome) (HCC) Severe sepsis (HCC) Medications sodium chloride 0.9% (NS) flush 5-40 mL (has no administration in time range) sodium chloride 0.9% (NS) flush 5-40 mL (has no administration in time range) sodium chloride 0.9 % infusion (has no administration in time range) sodium chloride 0.9 % bolus 1,200 mL (1,000 mL IntraVENous New Bag 01/26/254) sodium chloride 0.9 % bolus 500 mL (0 mL IntraVENous Stopped 01/26/258) acetaminophen (Tylenol) tablet 650 mg (650 mg Oral Given 01/26/25 0004) metoprolol tartrate (Lopressor) injection 5 mg (5 mg IntraVENous Given 01/26/257) cefTRIAXone (Rocephin) 1,000 mg in sodium chloride 0.9 % 50 mL IVPB Mini-Bag Plus (0 mg IntraVENousStopped 01/26/25 0037) iopamidol (Isovue-370) 76 % injection 75 mL (75 mL IntraVENous Given 01/26/25 0135) acetaminophen (Tylenol) tablet 500 mg (500 mg Oral Given 01/26/25 0242) REVAL: CRITICAL CARE TIME Total Critical Care time was 35 minutes for management of tachycardia, excluding separately reportable procedures. There was a high probability of clinically significant/life threatening deterioration in the patient's condition which required my urgent intervention. CONSULTS: None PROCEDURES: Unless otherwise noted below, none Procedures FINAL IMPRESSION 1. Bacteremia 2. SIRS (systemic inflammatory response syndrome) (HCC) 3. Severe sepsis (HCC) DISPOSITION Admit 01/26/2025 02:19:41 AM PATIENT REFERRED TO: No follow-up provider specified. DISCHARGE MEDICATIONS: New Prescriptions No medications on file (Comment: Please note this report has been produced using speech recognition software and may contain errors related to that system including errors in grammar, punctuation, and spelling, as well as words and phrases that may be inappropriate. If there are any questions or concerns please feel freeto contact the dictating provider for clarification.) Marcela Conley MD (electronically signed) Emergency Medicine Provider [1] Past Medical History: Diagnosis Date Atrial fibrillation (HCC) Diabetes mellitus (HCC) Hyperlipidemia Hypertension Hypothyroidism Neuropathy [2] Past Surgical History: Procedure Laterality Date BACK SURGERY CHOLECYSTECTOMY [3] No family history on file. [4] Social History Socioeconomic History Marital status: Tobacco Use Smoking status: Former Current packs/day: 0.00 Types: Cigarettes Quit date: 1965 Years since quittin.4 Smokeless tobacco: Never Vaping Use Vaping status: Never Used Substance and Sexual Activity Alcohol use: Yes Comment: drinks bee occasionally Drug use: Never Social Drivers of Health Food Insecurity: No Food Insecurity (12/03/2024) Hunger Vital Sign Worried About Running Out of Food in the Last Year: Never true Ran Out of Food in the Last Year: Never true Transportation Needs: No Transportation Needs (12/03/2024) PRAPARE - Transportation Lack of Transportation (Medical): No Lack of Transportation (Non-Medical): No Intimate Partner Violence: Not At Risk (12/03/2024) Humiliation, Afraid, Rape, and Kick questionnaire Fear of Current or Ex-Partner: No Emotionally Abused: No Physically Abused: No Sexually Abused: No Housing Stability: Low Risk (12/03/2024) Housing Stability Vital Sign Unable to Pay for Housing in the Last Year: No Number of Times Moved in the Last Year: 1 Homeless in the Last Year: No Sanjuanita Conley MD 01/26/25 0417 * Celine Reyna RN - 01/25/2025 10:34 PM EDT The patient came in via ambulance. She is complaining of generally not feeling well. Per family thepatient had elevated bp, hr, blood sugar. Generalized weakness, difficulty ambulating to the bathroom. Difficulty with being able to care for herself. [id number] Emergency department Note* Celine Reyna RN - 01/26/2025 5:27 AM EDT Report Called to Robbie [facility]ERSON [facility]. [id number] Emergency department Triage note* Celine Reyna RN - 01/25/2025 10:34 PM EDT The patient came in via ambulance. She is complaining of generally not feeling well. Per family thepatient had elevated bp, hr, blood sugar. Generalized weakness, difficulty ambulating to the bathroom. Difficulty with being able to care for herself. [id number] Physician Emergency department Note* Sanjuanita Conley MD - 01/25/2025 10:34 PM EDT EMERGENCY DEPARTMENT ENCOUNTER Pt Name: Hanna Nelson Birthdate 1940 Date of evaluation: 01/25/2025 ED Provider: Marcela Conley MD CHIEF COMPLAINT Chief Complaint Patient presents with Illness Generally not feeling well HISTORY OF PRESENT ILLNESS (Location/Symptom, Timing/Onset, Context/Setting, Quality, Duration, Modifying Factors, Severity) Note limiting factors. I wore appropriate PPE for the entirety of this encounter. HPI Hanna Nelson is a 84 y.o. female who presents to the emergency department with chief complaint offeeling unwell. Part of the history is provided by her son and daughter at the bedside, who states that this evening, her blood pressure was 165/125, her heart rate was 117, and her blood sugar was greater than 300. The patient endorses compliance with her insulin. She denies any chest pain or shortness of breath. Her son and daughter report a history of frequent urinary tract infections. The patient denies any hematuria or dysuria. Nursing Notes were reviewed. Limitations to history: None Outside historians: Family : son and daughter REVIEW OF SYSTEMS Review of Systems Pertinent positives and negatives as per HPI. PAST MEDICAL HISTORY Medical History[1] SURGICAL HISTORY Surgical History[2] CURRENT MEDICATIONS Previous Medications ALCOHOL SWABS (ALCOHOL PREP) 70 % PADS 1 Pad 3 times daily. APIXABAN (ELIQUIS) 5 MG TABLET Take 5 mg by mouth 2 times daily. ATENOLOL (TENORMIN) 25 MG TABLET Take 1 tablet (25 mg) by mouth 2 times daily. ATORVASTATIN (LIPITOR) 40 MG TABLET Take 40 mg by mouth daily. BLOOD GLUCOSE MONITORING SUPPL (BLOOD GLUCOSE MONITOR SYSTEM) W/DEVICE KIT Check glucose 3x daily CIPROFLOXACIN (CIPRO) 250 MG TABLET Take 250 mg by mouth 2 times daily. CONTINUOUS GLUCOSE SENSOR (FREESTYLE JAVIER 3 PLUS SENSOR) MISC 1 each every 15 days. FENOFIBRATE (TRIGLIDE) 160 MG TABLET Take 160 mg by mouth daily. GABAPENTIN (NEURONTIN) 300 MG CAPSULE Take 300 mg by mouth 2 times daily. GLUCOSE BLOOD TEST STRIP Use as instructed INSULIN DEGLUDEC (TRESIBA FLEXTOUCH) 100 UNIT/ML INJECTION Inject under the skin Nightly. INSULIN GLARGINE (LANTUS) 100 UNIT/ML INJECTION Inject 32 Units under the skin Nightly. LANCETS Check glucose x3 daily LEVOTHYROXINE (TIROSINT) 112 MCG CAPSULE Take by mouth every morning (before breakfast). METFORMIN (GLUCOPHAGE) 500 MG TABLET Take 1 tablet (500 mg) by mouth 2 times daily (with meals). OXYBUTYNIN (DITROPAN) 5 MG TABLET Take 10 mg by mouth daily. SEMAGLUTIDE (OZEMPIC) 2 MG/3ML SOLUTION PEN-INJECTOR Inject 0.5 mg under the skin 1 (one) time per week. ALLERGIES Tape FAMILY HISTORY Family History[3] SOCIAL HISTORY Social History[4] SCREENINGS PHYSICAL EXAM ED Triage Vitals Temp Heart Rate Resp BP 01/25/25 2311 01/25/25 2240 01/25/25 2240 01/25/25 2241 37 C (98.6 F) 71 18 (!) 158/68 SpO2 Temp Source Heart Rate Source Patient Position 01/25/25 2240 01/25/25 2311 01/25/25 2240 01/25/25 2241 95 % Oral Monitor Sitting BP Location FiO2 (%) 01/25/252240 -- Right arm Physical Exam Vitals and nursing note reviewed. Constitutional: General: She is not in acute distress. Appearance: She is well-developed. HENT: Head: Normocephalic and atraumatic. Eyes: Conjunctiva/sclera: Conjunctivae normal. Cardiovascular: Rate and Rhythm: Tachycardia present. Rhythm irregular. Heart sounds: No murmur heard. Pulmonary: Effort: Pulmonary effort is normal. No respiratory distress. Breath sounds: Normal breath sounds. Abdominal: Palpations: Abdomen is soft. Tenderness: There is no abdominal tenderness. Feet: Comments: Charcot foot bilaterally, well appearing ulcer to the medial right dorsum of the foot that her son and daughter state has been under wound care. Strong palpable bilateral dorsalis pedis pulses. Skin: General: Skin is warm and dry. Neurological: Mental Status: She is alert. Psychiatric: Mood and Affect: Mood normal. DIAGNOSTIC RESULTS Procedures/EKG: Interpretation per the Radiologist below, if available at the time of this note: XR chest 1 view Final Result Coarsening of the interstitial lung markings is likely chronic. No focal consolidation is identified. Report Dictated on Electronically Signed By: Herman Hein MD Electronically Signed Date/Time: 01/26/2025 1:[address] abdomen pelvis w contrast Final Result No acute findings are seen on this examination to explain the patient's pain. Report Dictated on Electronically Signed By: Herman Hein MD Electronically Signed Date/Time: 01/26/2025 1:41 AM EDT ED BEDSIDE ULTRASOUND: Performed by ED Physician - none LABS: Labs Reviewed CBC WITH AUTO DIFFERENTIAL - Abnormal Result Value Auto WBC 27.0 (*) RBC 4.22 Hemoglobin 12.8 Hematocrit 38.6 MCV 91.5 MCH 30.3 MCHC 33.2 RDW 14.2 Platelets 244 MPV 10.8 nRBC 0.0 BASIC METABOLIC PANEL - Abnormal SODIUM 139 POTASSIUM 4.6 CHLORIDE 105 CARBON DIOXIDE 22 (*) UREA NITROGEN 43 (*) CREATININE 1.45 (*) GLUCOSE 351 (*) CALCIUM 9.4 ANION GAP 12 eGFR 35.4 (*) COMPLETE URINALYSIS WITH REFLEX TO CULTURE - Abnormal Color, Urine Colorless Clarity, Urine Clear pH, Urine 6.0 Leukocytes, Urine Negative Nitrite, Urine Negative Protein, Urine 20 (*) Glucose, Urine >1,000 (*) Bilirubin, Urine Negative Ketones, Urine Negative Urobilinogen, Urine Normal Blood, Urine Negative Volume, Urine 12 mL RBC, Urine 0-2 WBC, Urine 3-5 Squamous Epithelial, Urine 3-5 Non-Squamous Epithalial Cells, Urine 3-5 (*) Bacteria, Urine Negative SPECIFIC GRAVITY OF URINE (NUMERIC) 1.013 Narrative: A specimen with <=10 WBC is not consistent with inflammation. This specimen will not reflex to aurine culture. MANUAL DIFFERENTIAL - Abnormal Adjusted WBC 27.0 (*) Neutrophils % 89 (*) Lymphocytes % 3 (*) Monocytes % 7 Eosinophils % 0 Basophils % 0 Unclassified Cells % 1.00 Absolute Neutrophil Count 24.0 (*) Lymphocytes Absolute 0.8 (*) Monocytes Absolute 1.9 (*) Eosinophils Absolute 0.0 Basophils Absolute 0.0 Unclassified Cells, Abs. 0.3 RBC Morphology Normal Toxic Granulation Present (*) PLT Morphology Normal Total Counted 100 Neutrophils Manual 89 Lymphocytes Manual 3 Monocytes Manual 7 Eosinophils Manual 0 Basophils Manual 0 Differential Method Value: Automated differential reported after manual slide review HIGH SENSITIVITY TROPONIN, SERIAL, SECOND TEST - Abnormal 2h Troponin HS (Serial 2nd Troponin) 18 (*) LACTIC ACID WITH REFLEX - Abnormal LACTIC ACID 2.6 (*) POCT GLUCOSE METER UNSOLICITED RESULTS - Abnormal Glucose 345 (*) Narrative: Performed by: Rodrigo Garcia, [address] [place] [address] CLIA ID: [id number] SARS-COV-2, FLU A/B, AND RSV COMBO - Normal SARS-CoV-2 Not Detected Respiratory Syncytial Virus Not Detected Influenza A Not Detected Influenza B Not Detected Narrative: Methodology: real-time, RT-PCR The SARS-CoV-2, Flu A/B, and RSV Combo assay is intended for in vitro diagnostic use under the FDA Emergency Use Authorization (EUA). This test has not been FDA cleared or approved. In compliance with this authorization, please visit www.fda.gov/media/895148/download or www.fda.gov/media/627769/download to access the applicable information sheets. THYROID STIMULATING HORMONE - Normal THYROID STIMULATING HORMONE 1.44 FREE T4 - Normal FREE T4 1.20 T3 FREE - Normal T3, FREE 2.25 HIGH SENSITIVITY TROPONIN, SERIAL BASELINE - Normal Troponin HS Serial Baseline 10 BLOOD CULTURE BLOOD CULTURE HIGH SENSITIVITY TROPONIN, SERIAL, THIRD TEST LACTIC ACID WITH REFLEX All other labs were within normal range or not returned as of this dictation. EMERGENCY DEPARTMENT COURSE and DIFFERENTIAL DIAGNOSIS/MDM: Vitals: Vitals: 01/26/25 0019 01/26/25 0041 01/26/25 0238 01/26/25 0242 BP: (!) 147/61 BP Location: Left arm Patient Position: Pulse: (!) 137 (!) 126 (!) 128 Resp: 20 Temp: 37.9 C (100.3 F) (!) 38.5 C (101.3 F) TempSrc: Oral SpO2: 96% Weight: Height: The patient presented with a chief complaint of feeling unwell The differential diagnosis associated with this patient's presentation includes but is not limited to: Presentation concerning for symptoms secondary to hyperglycemia versus DKA versus infectious etiology such as pneumonia or UTI versus electrolyte abnormalities. Denies chest pain or shortness of breath and I am less concerned for ACS Our workup consisted of ordering/reviewing: CBC, BMP, TSH, T4, urinalysis, chest x-ray, EKG I reviewed external records from: PDMP demonstrating 8 prescriptions, to include gabapentin and Dobbins Blood work significant for an elevated glucose of 345 but anion gap within normal limits at 12 and she is not in DKA. Creatinine of 1.45, consistent with previous baseline values. Marked leukocytosisof 27, but her son and daughter states that she is not on steroids. CT abdomen pelvis added. Thyroid studies within normal limits. Urinalysis negative for bacteria. Troponin 10. CT abdomen pelvis negative for acute processes. Chest x-ray negative for acute processes. Patient could be experiencing bacteremia. Patient care discussed with: Dr. Can, [facility] hospitalist, who has agreed to accept the patient for admission. Requested blood cultures and COVID swab. SEP- CORE MEASURE DATA SIRS Criteria Sepsis Criteria Severe Sepsis Criteria Septic Shock Criteria Must meet 2: [] Temperature > 100.4 F (38 C) or < 96.8 F (36 C) [x] HR > 90 [] RR > 20 [x] WBC > 12 or < 4 or 10% bands Must be confirmed or suspected to move forward with diagnosis of sepsis. Must select at least one: [x] Bacterial Infection Confirmed or Suspected. [] Viral Infection Confirmed or Suspected. [] No infection present. Patient does not meet criteria for Sepsis. Must meet 1: [x] Lactate > 2 or [] Signs of Organ Dysfunction: - SBP < 90 or MAP < 65 - Altered mental status - Creatinine > 2 or increased from baseline - Urine Output < 0.5 ml/kg/hr - Bilirubin > 2 - INR > 1.5 - Platelets < 100,000 - Acute Respiratory Failure as evidenced by new need for NIPPV or mechanical ventilation [] No criteria met for Severe Sepsis. Must meet 1: [] Lactate = or > 4 or [] SBP < 90 or MAP < 65 for at least two readings in the first hour after fluid bolus administration [x] No criteria met for Septic Shock. Patient Vitals from 01/25/25 2301 to 01/26/25 0000 Temp Temp src Pulse Resp SpO2 01/25/25 2311 37 C (98.6 F) Oral -- -- -- 01/26/25 0000 -- -- (!) 151 20 93 % Recent Labs 01/25/25 2306 01/26/25 0233 WBC 27.0* -- LACTATE -- 2.6* CREATININE 1.45* -- PLT 244 -- Sepsis Identified at 0000 hours. Fluid Resuscitation Rational: at least 30mL/kg based on entered actual body weight at time of triage Infection Source: Unknown Reassessment Exam: Not applicable. Patient does not have Septic Shock. Marcela Conley MD Consideration for escalation of care with: Admission. The patient requires hospitalization due to leukocytosis, tachycardia Patient's care was impacted by history of atrial fibrillation. The patient will be admitted The patient is in agreement with this plan. Diagnoses as of 01/26/25 0417 Bacteremia SIRS (systemic inflammatory response syndrome) (HCC) Severe sepsis (HCC) Medications sodium chloride 0.9% (NS) flush 5-40 mL (has no administration in time range) sodium chloride 0.9% (NS) flush 5-40 mL (has no administration in time range) sodium chloride 0.9 % infusion (has no administration in time range) sodium chloride 0.9 % bolus 1,200 mL (1,000 mL IntraVENous New Bag 01/26/25 0244) sodium chloride 0.9 % bolus 500 mL (0 mL IntraVENous Stopped 01/26/25 0248) acetaminophen (Tylenol) tablet 650 mg (650 mg Oral Given 01/26/25 0004) metoprolol tartrate (Lopressor) injection 5 mg (5 mg IntraVENous Given 01/26/25 0037) cefTRIAXone (Rocephin) 1,000 mg in sodium chloride 0.9 % 50 mL IVPB Mini-Bag Plus (0 mg IntraVENousStopped 01/26/2536) iopamidol (Isovue-370) 76 % injection 75 mL (75 mL IntraVENous Given 01/26/25 0135) acetaminophen (Tylenol) tablet 500 mg (500 mg Oral Given 01/26/25 0242) REVAL: CRITICAL CARE TIME Total Critical Care time was 35 minutes for management of tachycardia, excluding separately reportable procedures. There was a high probability of clinically significant/life threatening deterioration in the patient's condition which required my urgent intervention. CONSULTS: None PROCEDURES: Unless otherwise noted below, none Procedures FINAL IMPRESSION 1. Bacteremia 2. SIRS (systemic inflammatory response syndrome) (HCC) 3. Severe sepsis (HCC) DISPOSITION Admit 01/26/2025 02:19:41 AM PATIENT REFERRED TO: No follow-up provider specified. DISCHARGE MEDICATIONS: New Prescriptions No medications on file (Comment: Please note this report has been produced using speech recognition software and may contain errors related to that system including errors in grammar, punctuation, and spelling, as well as words and phrases that may be inappropriate. If there are any questions or concerns please feel freeto contact the dictating provider for clarification.) Marcela Conley MD (electronically signed) Emergency Medicine Provider [1] Past Medical History: Diagnosis Date Atrial fibrillation (HCC) Diabetes mellitus (HCC) Hyperlipidemia Hypertension Hypothyroidism Neuropathy [2] Past Surgical History: Procedure Laterality Date BACK SURGERY CHOLECYSTECTOMY [3] No family history on file. [4] Social History Socioeconomic History Marital status: Tobacco Use Smoking status: Former Current packs/day: 0.00 Types: Cigarettes Quit date: 1965 Years since quittin.4 Smokeless tobacco: Never Vaping Use Vaping status: Never Used Substance and Sexual Activity Alcohol use: Yes Comment: drinks bee occasionally Drug use: Never Social Drivers of Health Food Insecurity: No Food Insecurity (12/03/2024) Hunger Vital Sign Worried About Running Out of Food in the Last Year: Never true Ran Out of Food in the Last Year: Never true Transportation Needs: No Transportation Needs (12/03/2024) PRAPARE - Transportation Lack of Transportation (Medical): No Lack of Transportation (Non-Medical): No Intimate Partner Violence: Not At Risk (12/03/2024) Humiliation, Afraid, Rape, and Kick questionnaire Fear of Current or Ex-Partner: No Emotionally Abused: No Physically Abused: No Sexually Abused: No Housing Stability: Low Risk (12/03/2024) Housing Stability Vital Sign Unable to Pay for Housing in the Last Year: No Number of Times Moved in the Last Year: 1 Homeless in the Last Year: No Sanjuanita Conley MD 01/26/25 0417 [employer] Phone: 1(485) 616-368906-03-2025 History of Present illness Narrative* Jennifer Waldrop DPM - 01/12/2025 9:45 AM EDTAssociated Order(s): Debridement Post-Procedure Diagnose(s): Pes planus of both feet; 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 Subjective Patient ID: Hanna Nelson is a 84 y.o. female who presents for Wound Care. HPI: Patient returns to wound healing center for follow-up of ulcer to the bottom of the right foot. Patient using AFO brace with an offloading area. Patient is with her son today. They feel continued improvement has been made to the ulcer site to the bottom of the right foot. They deny any worsening or signs of infection since patient's last visit at the wound center. Objective Physical Exam: Ulcer to plantar right foot. Base of the ulcer site is a mixture of adherent slough,fibrin, granular tissue, and surrounding hyperkeratotic skin. No purulence, no malodor, no surrounding or streaking cellulitis, no probing to bone, no tracking, no undermining. Assessment/Plan Wound Assessment: Wound/Incision 09/18/24 Diabetic Ulcer Foot Right (Active) Wound Image 01/12/25 0947 Site Assessment Intact;Granulation 01/12/25 09 Linda-Wound Assessment Clean;Calloused 01/12/25 0947 Wound Length (cm) 0.1 cm 01/12/25 0947 Wound Width (cm) 0.1 cm 01/12/25 0947 Wound Surface Area (cm^2) 0.01 cm^2 01/12/25 0947 Wound Depth (cm) 0.1 cm 01/12/25 0947 Wound Volume (cm^3) 0.001 cm^3 01/12/25 0947 Wound Healing % 100 01/12/25 0947 Drainage Description Serosanguineous 01/12/25 0947 Odor None 01/12/25 0947 Drainage Amount Scant 01/12/25 0947 Treatments Cleansed 01/12/25 0947 Primary Dressing Collagen;Xeroform 01/05/25 1002 Secondary Dressing Silicone foam borders (multiple sizes) 01/05/25 1002 Secured with Medfix tape 12/11/24 1256 Dressing Status New dressing 01/05/25 1002 Undermining 0.4 cm 10/09/24 1200 Undermining Clock Position of Wound 9;10;11;12 10/09/24 1200 Debridement Wound/Incision 09/18/24 Diabetic Ulcer Foot Right Performed by: Jennifer Waldrop DPM Authorized by: Jennifer Waldrop DPM Consent Consent obtained? verbal Consent given by: patient Risks discussed? procedural risks discussed Time out called at 01/12/2025 10:14 AM Immediately prior to the procedure a time out was called and the performing provider verified the correct patient, procedure, equipment, technical support 1 software engineer, and site/side marked as required. Debridement Details Performed by: physician Debridement type: surgical Level of debridement: subcutaneous tissue Pain control: lidocaine 2% Pain control administration type: topical Pre-debridement measurements Length (cm): 0.1 Width (cm): 0.1 Depth (cm): 0.1 Surface Area (cm^2): 0.01 Post-debridement measurements Length (cm): 0.2 Width (cm): 0.2 Depth (cm): 0.2 Percent debrided: 100% Surface Area (cm^2): 0.03 Area Debrided (cm^2): 0.03 Volume (cm^3): 0 Tissue and other material debrided: subcutaneous tissue Devitalized tissue debrided: biofilm, callus, fibrin and slough Instrument(s) utilized: blade Bleeding: small Hemostasis obtained with: pressure Procedural pain (0-10): 0 Post-procedural pain: 0 Response to treatment: procedure was tolerated well Patient re-examined. Debridement performed as noted above. Stressed continued importance of offloading the ulcer site at all times. She is to continue to use her AFO offloading brace as recommended. She is to monitor that area along with help from her family of any signs of worsening or signs of infection, and they are to call the wound center or go to the ER if noted. Patient will follow back upat the wound center in 2 weeks per her request, or sooner if needed for any reason before then. 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 Subjective Patient ID: Hanna Nelson is a 84 y.o. female who presents for Wound Care. HPI: Patient returns to wound healing center for follow-up of ulcer to the bottom of the right foot. Patient using AFO brace with an offloading area. Patient is with her son today. They feel continued improvement has been made to the ulcer site to the bottom of the right foot. They deny any worsening or signs of infection since patient's last visit at the wound center. Objective Physical Exam: Ulcer to plantar right foot. Base of the ulcer site is a mixture of adherent slough,fibrin, granular tissue, and surrounding hyperkeratotic skin. No purulence, no malodor, no surrounding or streaking cellulitis, no probing to bone, no tracking, no undermining. Assessment/Plan Wound Assessment: Wound/Incision 09/18/24 Diabetic Ulcer Foot Right (Active) Wound Image 01/12/25 0947 Site Assessment Intact;Granulation 01/12/25 0947 Linda-Wound Assessment Clean;Calloused 01/12/25 0947 Wound Length (cm) 0.1 cm 01/12/25 0947 Wound Width (cm) 0.1 cm 01/12/25 0947 Wound Surface Area (cm^2) 0.01 cm^2 01/12/25 0947 Wound Depth (cm) 0.1 cm 01/12/25 0947 Wound Volume (cm^3) 0.001 cm^3 01/12/25 0947 Wound Healing % 100 01/12/25 0947 Drainage Description Serosanguineous 01/12/25 0947 Odor None 01/12/25 0947 Drainage Amount Scant 01/12/25 0947 Treatments Cleansed 01/12/25 0947 Primary Dressing Collagen;Xeroform 01/05/25 1002 Secondary Dressing Silicone foam borders (multiple sizes) 01/05/25 1002 Secured with Medfix tape 12/11/24 1256 Dressing Status New dressing 01/05/25 1002 Undermining 0.4 cm 10/09/24 1200 Undermining Clock Position of Wound 9;10;11;12 10/09/24 1200 Debridement Wound/Incision 09/18/24 Diabetic Ulcer Foot Right Performed by: Jennifer Waldrop DPM Authorized by: Jennifer Waldrop DPM Consent Consent obtained? verbal Consent given by: patient Risks discussed? procedural risks discussed Time out called at 01/12/2025 10:14 AM Immediately prior to the procedure a time out was called and the performing provider verified the correct patient, procedure, equipment, technical support 1 software engineer, and site/side marked as required. Debridement Details Performed by: physician Debridement type: surgical Level of debridement: subcutaneous tissue Pain control: lidocaine 2% Pain control administration type: topical Pre-debridement measurements Length (cm): 0.1 Width (cm): 0.1 Depth (cm): 0.1 Surface Area (cm^2): 0.01 Post-debridement measurements Length (cm): 0.2 Width (cm): 0.2 Depth (cm): 0.2 Percent debrided: 100% Surface Area (cm^2): 0.03 Area Debrided (cm^2): 0.03 Volume (cm^3): 0 Tissue and other material debrided: subcutaneous tissue Devitalized tissue debrided: biofilm, callus, fibrin and slough Instrument(s) utilized: blade Bleeding: small Hemostasis obtained with: pressure Procedural pain (0-10): 0 Post-procedural pain: 0 Response to treatment: procedure was tolerated well Patient re-examined. Debridement performed as noted above. Stressed continued importance of offloading the ulcer site at all times. She is to continue to use her AFO offloading brace as recommended. She is to monitor that area along with help from her family of any signs of worsening or signs of infection, and they are to call the wound center or go to the ER if noted. Patient will follow back upat the wound center in 2 weeks per her request, or sooner if needed for any reason before then. documented in this [facility]06-03-2025 Hospital Discharge instructions* Patient Instructions* Liss Acevedo RN - 01/12/2025 9:45 AM EDT Follow-up Appointments: Return Appointment in 2 weeks. Call [place] wound center at [phone], [facility] at [phone], or [facility] center at [phone]. Edema/Swelling: Avoid standing for long periods of time, elevate legs to the level of the heart or above 30 minutesdaily and/or when sitting. Offloading: Avoid pressure to wound site as often as possible. ANY AMOUNT OF PRESSURE WILL DELAY WOUND HEALING. Offloading wound site is extremely important to assist in wound healing. Avoid friction and shearing, do not scoot or slide. Lift your weight up when repositioning. Bathing/Showering: OK to shower but do not soak or submerge wound. Use an antibacterial soap, such as dial to cleanse wound area once the rest of the body has been washed. Nutrition: Follow diet per physician instructions such as increasing protein intake to promote wound healing 100 gram of protein a day If diabetic-Monitor blood sugars to help with wound healing. High blood sugars can affect wound healing. Wound Care: R Plantar foot (x3 weekly) Cleanse wound with mild soap and water and pat dry Apply Collagen to wound bed Apply Xeroform over Collagen Gauze Apply Medifix tape Signs and symptoms of wound infection: - fever - flu-like symptoms - pus or unusual drainage - foul odor - worsening of wound - spreading redness or warmth around the wound - increased pain - increasing and/or uncontrolled blood sugar for diabetics Please call the wound center at [phone] if you are experiencing this. If we are closed and youare unable to reach us in person please go to the ER documented in this [facility]06-03-2025 Hospital Discharge instructions* Patient Instructions* Liss Acevedo RN - 01/12/2025 9:45 AM EDT Follow-up Appointments: Return Appointment in 2 weeks. Call [place] [facility] center at [phone], [facility] at [phone], or [facility] at [phone]. Edema/Swelling: Avoid standing for long periods of time, elevate legs to the level of the heart or above 30 minutesdaily and/or when sitting. Offloading: Avoid pressure to wound site as often as possible. ANY AMOUNT OF PRESSURE WILL DELAY WOUND HEALING. Offloading wound site is extremely important to assist in wound healing. Avoid friction and shearing, do not scoot or slide. Lift your weight up when repositioning. Bathing/Showering: OK to shower but do not soak or submerge wound. Use an antibacterial soap, such as dial to cleanse wound area once the rest of the body has been washed. Nutrition: Follow diet per physician instructions such as increasing protein intake to promote wound healing 100 gram of protein a day If diabetic-Monitor blood sugars to help with wound healing. High blood sugars can affect wound healing. Wound Care: R Plantar foot (x3 weekly) Cleanse wound with mild soap and water and pat dry Apply Collagen to wound bed Apply Xeroform over Collagen Gauze Apply Medifix tape Signs and symptoms of wound infection: - fever - flu-like symptoms - pus or unusual drainage - foul odor - worsening of wound - spreading redness or warmth around the wound - increased pain - increasing and/or uncontrolled blood sugar for diabetics Please call the wound center at [phone] if you are experiencing this. 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 Subjective Patient ID: Hanna Nelson is a 84 y.o. female who presents for Wound Care. HPI: Patient returns to wound healing center for follow-up of ulcer to the bottom of the right foot. Patient just recently got a new AFO brace from [employer] and is still awaiting arrival of [employer] shoes. Patient is with her son today. They feel continued improvement has been made to theulcer site to the bottom of the right foot. They deny any worsening or signs of infection since patient's last visit at the wound center. Objective Physical Exam: Ulcer to plantar right foot. Base of the ulcer site is a mixture of adherent slough,fibrin, granular tissue, and surrounding hyperkeratotic skin. No purulence, no malodor, no surrounding or streaking cellulitis, no probing to bone, no tracking, no undermining. Assessment/Plan Wound Assessment: Wound/Incision 09/18/24 Diabetic Ulcer Foot Right (Active) Wound Image 01/05/25 1002 Site Assessment Dry;Granulation 01/05/25 1002 Linda-Wound Assessment Dry 01/05/25 1002 Wound Length (cm) 0.1 cm 01/05/25 1002 Wound Width (cm) 0.1 cm 01/05/25 1002 Wound Surface Area (cm^2) 0.01 cm^2 01/05/25 1002 Wound Depth (cm) 0.1 cm 01/05/25 1002 Wound Volume (cm^3) 0.001 cm^3 01/05/25 1002 Wound Healing % 100 01/05/25 1002 Drainage Description Unable to assess 01/05/25 1002 Odor None 01/05/25 1002 Drainage Amount None 01/05/25 1002 Treatments Cleansed 01/05/25 1002 Primary Dressing Collagen;Xeroform 12/11/24 1256 Secondary Dressing 4x4 gauze 12/11/24 1256 Secured with Medfix tape 12/11/24 1256 Dressing Status New dressing;Clean, dry & intact 12/11/24 1256 Undermining 0.4 cm 10/09/24 1200 Undermining Clock Position of Wound 9;10;11;12 10/09/24 1200 Debridement Wound/Incision 09/18/24 Diabetic Ulcer Foot Right Performed by: Jennifer Waldrop DPM Authorized by: Jennifer Waldrop DPM Consent Consent obtained? verbal Consent given by: patient Risks discussed? procedural risks discussed Time out called at 01/05/2025 10:24 AM Immediately prior to the procedure a time out was called and the performing provider verified the correct patient, procedure, equipment, technical support 1 software engineer, and site/side marked as required. Debridement Details Performed by: physician Debridement type: surgical Level of debridement: subcutaneous tissue Pain control: lidocaine 2% Pain control administration type: topical Pre-debridement measurements Length (cm): 0.1 Width (cm): 0.1 Depth (cm): 0.1 Surface Area (cm^2): 0.01 Post-debridement measurements Length (cm): 0.3 Width (cm): 0.3 Depth (cm): 0.2 Percent debrided: 100% Surface Area (cm^2): 0.07 Area Debrided (cm^2): 0.07 Volume (cm^3): 0.01 Tissue and other material debrided: subcutaneous tissue Devitalized tissue debrided: biofilm, callus, fibrin and slough Instrument(s) utilized: curette Bleeding: small Hemostasis obtained with: pressure Procedural pain (0-10): 0 Post-procedural pain: 0 Response to treatment: procedure was tolerated well Patient re-examined. Debridement performed as noted above. Stressed continued importance of offloading the ulcer site at all times. She is to continue to break in her AFO offloading brace as recommended. She is to monitor that area along with help from her family of any signs of worsening or signs of infection, and they are to call the wound center or go to the ER if noted. Patient will follow back up at the wound center in 1 week, or sooner if needed for any reason before then. documented in this [facility]05-27-2025 Hospital Discharge instructions* Patient Instructions* Liss Acevedo RN - 01/05/2025 9:45 AM EDT Follow-up Appointments: Return Appointment in 1 week. Call [place] [facility] center at [phone], [facility] at [phone], or [facility] at [phone]. Edema/Swelling: Avoid standing for long periods of time, elevate legs to the level of the heart or above 30 minutesdaily and/or when sitting. Offloading: Avoid pressure to wound site as often as possible. ANY AMOUNT OF PRESSURE WILL DELAY WOUND HEALING. Offloading wound site is extremely important to assist in wound healing. Avoid friction and shearing, do not scoot or slide. Lift your weight up when repositioning. Bathing/Showering: OK to shower but do not soak or submerge wound. Use an antibacterial soap, such as dial to cleanse wound area once the rest of the body has been washed. Nutrition: Follow diet per physician instructions such as increasing protein intake to promote wound healing 100 gram of protein a day If diabetic-Monitor blood sugars to help with wound healing. High blood sugars can affect wound healing. Wound Care: R Plantar foot (x3 weekly) Cleanse wound with mild soap and water and pat dry Apply Collagen to wound bed Apply Xeroform over Collagen Gauze Apply Medifix tape Signs and symptoms of wound infection: - fever - flu-like symptoms - pus or unusual drainage - foul odor - worsening of wound - spreading redness or warmth around the wound - increased pain - increasing and/or uncontrolled blood sugar for diabetics Please call the wound center at [phone] if you are experiencing this. If we are closed and youare unable to reach us in person please go to the ER documented in this [facility]05-27-2025 Miscellaneous Notes* Addendum Note - Chiqui Davidson - 01/05/2025 9:45 AM EDTEncounter addended by: Chiqui Davidson on: 01/05/2025 10:34 AM Actions taken: Flowsheet accepted documented in this [facility]05-27-2025 Note* Addendum Note - Chiqui Davidson - 01/05/2025 9:45 AM EDTEncounter addended by: Chiqui Davidson on: 01/05/2025 10:34 AM Actions taken: [id number]* Addendum Note - Chiqui Davidson - 01/05/2025 9:45 AM EDTEncounter addended by: Chiqui Davidson on: 01/05/2025 10:34 AM Actions taken: [id number]* Addendum Note - Chiqui Sanchezs - 01/05/2025 9:45 AM EDTEncounter addended by: Chiqui Davidson on: 01/05/2025 10:34 AM Actions taken: [id number] [facility]* Addendum Note - Chiqui Sanchezs - 01/05/2025 9:45 AM EDTEncounter addended by: Chiqui Davidson on: 01/05/2025 10:34 AM Actions taken: [id number] [facility]* Addendum Note - Chiqui Sanchezs - 01/05/2025 9:45 AM EDTEncounter addended by: Chiqui Davidson on: 01/05/2025 10:34 AM Actions taken: [id number] History of Present illness Narrative* Jennifer Waldrop DPM - 12/29/2024 10:15 AM EDTAssociated Order(s): Debridement Post-Procedure Diagnose(s): Pes planus of both feet; 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 Subjective Patient ID: Hanna Nelson is a 84 y.o. female who presents for Wound Care. HPI: Patient returns to wound healing center for follow-up of ulcer to the bottom of the right foot. Patient just recently got a new AFO brace from [employer] and is still awaiting arrival of herdiabetic shoes. Patient is with her son today. They feel continued improvement has been made to theulcer site to the bottom of the right foot. They deny any worsening or signs of infection since patient's last visit at the wound center. Objective Physical Exam: Ulcer to plantar right foot. Base of the ulcer site is a mixture of adherent slough,fibrin, granular tissue, and surrounding hyperkeratotic skin. No purulence, no malodor, no surrounding or streaking cellulitis, no probing to bone, no tracking, no undermining. Assessment/Plan Wound Assessment: Wound/Incision 09/18/24 Diabetic Ulcer Foot Right (Active) Wound Image 12/29/24 1057 Site Assessment Dry;Granulation 12/29/24 1057 Linda-Wound Assessment Dry 12/29/24 1057 Wound Length (cm) 0.2 cm 12/29/24 1057 Wound Width (cm) 0.2 cm 12/29/24 1057 Wound Surface Area (cm^2) 0.03 cm^2 12/29/24 1057 Wound Depth (cm) 0.1 cm 12/29/24 1057 Wound Volume (cm^3) 0.002 cm^3 12/29/24 1057 Wound Healing % 99 12/29/24 1057 Drainage Description Serosanguineous 12/29/24 1057 Odor None 12/29/24 1057 Drainage Amount Scant 12/29/24 1057 Treatments Cleansed 12/29/24 1057 Primary Dressing Collagen;Xeroform 12/11/24 1256 Secondary Dressing 4x4 gauze 12/11/24 1256 Secured with Medfix tape 12/11/24 1256 Dressing Status New dressing;Clean, dry & intact 12/11/24 1256 Undermining 0.4 cm 10/09/24 1200 Undermining Clock Position of Wound 9;10;11;12 10/09/24 1200 Debridement Wound/Incision 09/18/24 Diabetic Ulcer Foot Right Performed by: Jennifer Waldrop DPM Authorized by: Jennifer Waldrop DPM Consent Consent obtained? verbal Consent given by: patient Risks discussed? procedural risks discussed Time out called at 12/29/2024 11:20 AM Immediately prior to the procedure a time out was called and the performing provider verified the correct patient, procedure, equipment, technical support 1 software engineer, and site/side marked as required. Debridement Details Performed by: physician Debridement type: surgical Level of debridement: subcutaneous tissue Pain control: lidocaine 2% Pain control administration type: topical Pre-debridement measurements Length (cm): 0.2 Width (cm): 0.2 Depth (cm): 0.1 Surface Area (cm^2): 0.03 Post-debridement measurements Length (cm): 0.3 Width (cm): 0.3 Depth (cm): 0.2 Percent debrided: 100% Surface Area (cm^2): 0.07 Area Debrided (cm^2): 0.07 Volume (cm^3): 0.01 Tissue and other material debrided: subcutaneous tissue Devitalized tissue debrided: biofilm, callus, fibrin and slough Instrument(s) utilized: blade Bleeding: small Hemostasis obtained with: pressure Procedural pain (0-10): 0 Post-procedural pain: 0 Response to treatment: procedure was tolerated well Patient examined and evaluated. Debridement performed as noted above. Stressed continued importanceof offloading the ulcer site at all times. She is to continue to break in her AFO offloading brace as recommended. She is to monitor that area along with help from her family of any signs of worsening or signs of infection, and they are to call the wound center or go to the ER if noted. Patient will follow back up at the wound center in 1 week, or sooner if needed for any reason before then. documented in this [facility]05-20-2025 Hospital Discharge instructions* Patient Instructions* Liss Acevedo RN - 12/29/2024 10:15 AM EDT Follow-up Appointments: Return Appointment in 1 week. Call [place] at [phone], [facility] at [phone], or [facility] at [phone]. Edema/Swelling: Avoid standing for long periods of time, elevate legs to the level of the heart or above 30 minutesdaily and/or when sitting. Offloading: Avoid pressure to wound site as often as possible. ANY AMOUNT OF PRESSURE WILL DELAY WOUND HEALING. Offloading wound site is extremely important to assist in wound healing. Avoid friction and shearing, do not scoot or slide. Lift your weight up when repositioning. Bathing/Showering: OK to shower but do not soak or submerge wound. Use an antibacterial soap, such as dial to cleanse wound area once the rest of the body has been washed. Nutrition: Follow diet per physician instructions such as increasing protein intake to promote wound healing 100 gram of protein a day If diabetic-Monitor blood sugars to help with wound healing. High blood sugars can affect wound healing. Wound Care: R Plantar foot (x3 weekly) Cleanse wound with mild soap and water and pat dry Apply Collagen to wound bed Apply Xeroform over Collagen Gauze Apply Medifix tape Signs and symptoms of wound infection: - fever - flu-like symptoms - pus or unusual drainage - foul odor - worsening of wound - spreading redness or warmth around the wound - increased pain - increasing and/or uncontrolled blood sugar for diabetics Please call the wound center at [phone] if you are experiencing this. If we are closed and youare unable to reach us in person please go to the ER documented in this [facility]05-15-2025 Telephone encounter Note* Telephone Encounter - ALEJANDRINA Urias CNP - 12/24/2024 2:00 PM EDT Good afternoon Tiffany, Can we get this patient resumed on javier 3 plus? I sent an electronic prescription to [facility] [place]. Thanks! [id number] Miscellaneous Notes* Telephone Encounter - ALEJANDRINA Urias CNP - 12/24/2024 2:00 PM EDT Good afternoon Tiffany, Can we get this patient resumed on javier 3 plus? I sent an electronic prescription to [facility] [place]. Thanks! documented in this [facility]05-15-2025 History of Present illness Narrative* Priscila PosadaMary Carmen Shade, 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 - NUCLEAR PLANT INSTRUMENT TECHNICIAN - 12/24/2024 9:30 AM EDT Images from the original note were not included. [facility] [address] [facility] [address] Dept: [phone] Dept Loc: [phone] Visit type: Established patient Reason for Visit: Follow-up and Diabetes Assessment and Plan 1. Type 2 diabetes mellitus with hyperglycemia, with long-term current use of insulin (HCC) - Microalbumin / creatinine urine ratio 2. Essential hypertension 3. Mixed hyperlipidemia - Lipid panel Goal A1C = 7.0-7.5. Glucose goal range: 100-150 Insulin is necessary for ongoing mgmt. FSBS to occur 4 times daily, be recorded, and send to office in 2 weeks for review. TIR: 5%, High 17%, VH 78%, Lows 0% Patient will make the following changes to their antihyperglycemic regimen: Stop Tradjenta 5 mg daily Start Ozempic 0.25. mg weekly for 4 weeks then increase to 0.5 mg weekly Continue Metformin 500 mg BID Continue Lantus 32 units nightly Patient taking medications appropriately with assistance from adult children. BGL reviewed and running high every time she experiences UTI. Patient has been hospitalized multiple times since she was seen in the hospital in September. Has recurring UTIs. Not candidate for SGLT2 Patient was ordered Mealtime insulin after last hospitalization but due to family dynamics of adultchildren working and unable to give insulin as well as memory challenges of the patient to rememberto take medication, insulin would be difficult during the day at this point. I advised pt of the possible SEs of GLP1 agonist therapy (including nausea, allergic rxn, injectionsite rxn, MTC and pancreatitis). Pt voiced understanding and wished to proceed with use. Pt was advised to call office if severe abd pain, N/V developed. Pt voiced understanding. H/O pancreatitis: Yes [] , No [x] H/O MTC in pt or first degree family member: Yes [] , No [x] Pt counseled about these recommendations. Pt voiced understanding. These recommendations made based on interpretation of available data (which may include FSBS, A1C, venous sampling, or data from pt recall). HTN: Stable on no BP medication while currently treated for UTI. Patient has hypotension and hyperglycemia during UTI recurrences and only takes BP medication of atenolol when UTI is resolved for short periods of time. HLD: Patient had not had labs completed since she moved to the area. Patient relocated from [facility] to live by family. Labs ordered for monitoring. Takes Atorvastatin 40 mg daily I reviewed: laboratory results reviewed: Yes radiographic reports reviewed: No I reviewed the radiographic images personally at the time of today's visit: No Pt was advised of the results. Records from outside facility/PCP office to be requested: Yes Scripts sent to pharmacy of pt choice: Yes No follow-ups on file. Subjective HPI PCP is Dorothy Medrano Referring is Inpatient Primary Physician Previous Tactical Air Control Party Manager: no Initial [facility] office visit: Inpatient 09/21/2024 Last office visit: Patient presented to office visit with son Hi. Patient has confusion and unable to manage medications independently. Family assists with medications at home. Hospitalized in November DM Onset: at age of 49 Type of DM: 2 Complications: Cardiovascular -- No Statin Use -- Yes Retinopathy -- Unknown Last DALE/Retina Eval: Patient to schedule Nephropathy -- Yes VILLA/ARB Use -- No Polyneuropathy -- Yes Foot Exam: Wound care weekly 11/2024 Obesity -- No Other -- No Pt complaints include: Hyperglycemia Confusion Since last office visit denies new health problems, denies hospitalizations, and denies surgeries. Pt feels their blood sugars are unchanged since [facility]. Pt c/o sxs at today's visit: No Pt c/o sxs of hyperglycemia at today's visit: No Pt c/o SEs from Medications at today's visit: No Pt voices concerns about cost of medications at today's visit: No Hyperglycemia present: Yes Hypoglycemia present: No Current DM Medications: Tradjenta 5 mg daily Metformin 500 mg BID Lantus 32 units nightly Taking Medications w/o Missed Doses: Yes Log present: Yes Reviewed w/ pt: Yes Scanned into Media: Yes Following Diet for DM: Yes 2-3 meals daily Following Exercise Regimen: no Limited Previously Used DM Meds: Yes Metformin Glipizide Tradjenta Review of Systems Constitutional: Negative for appetite change and fatigue. Respiratory: Negative for shortness of breath. Cardiovascular: Negative for chest pain and palpitations. Gastrointestinal: Negative for abdominal pain, constipation, diarrhea, nausea and vomiting. Endocrine: Negative for polydipsia and polyuria. Skin: Positive for wound. Neurological: Positive for weakness. An entire ROS was performed at the time of this encounter. Unless noted above in the HPI, the ROS is negative. Allergies[1] Current Medications[2] Medical History[3] Social History Tobacco Use Smoking status: Former Current packs/day: 0.00 Types: Cigarettes Quit date: 1964 Years since quittin.4 Smokeless tobacco: Never Substance Use Topics Alcohol use: Not Currently Surgical History[4] Family History[5] Objective BP 104/61 Pulse 75 Ht 5' 10" (1.778 m) BMI 28.98 kg/m Physical Exam Vitals and nursing note reviewed. HENT: Head: Normocephalic. Eyes: Conjunctiva/sclera: Conjunctivae normal. Cardiovascular: Rate and Rhythm: Normal rate and regular rhythm. Pulses: Normal pulses. Heart sounds: Normal heart sounds. No murmur heard. Pulmonary: Effort: Pulmonary effort is normal. No respiratory distress. Breath sounds: Normal breath sounds. Musculoskeletal: Right lower leg: Edema present. Left lower leg: Edema present. Neurological: General: No focal deficit present. Mental Status: She is alert and oriented to person, place, and time. Psychiatric: Mood and Affect: Mood normal. Behavior: Behavior normal. Data Reviewed and Summarized Labs: No components found for: "LABA1C" No components found for: "EAG" Lab Results Component Value Date NA 143 12/05/2024 K 4.5 12/05/2024 CL 112 (H) 12/05/2024 CO2 21 (L) 12/05/2024 BUN 47 (H) 12/05/2024 CREATININE 1.40 (H) 12/05/2024 GLUCOSE 239 (H) 12/05/2024 CALCIUM 8.5 (L) 12/05/2024 No results found for: "CHLPL", "CHOL" No results found for: "TRIG" No results found for: "HDL" No results found for: "LDLCALC" No results found for: "VLDL" No results found for: "CHOLHDLRATIO" No results found for: "[id number]" Imaging/Testing: Portions of the information within this encounter were entered using an electronic dictation system. Best attempts were made to edit/proofread the information prior to note completion. Despite the review of information, some errors may remain. If there are questions related to the information contained within the note please contact the signing physician directly. [1] Allergies Allergen Reactions Tape Rash [2] Current Outpatient Medications: apixaban (Eliquis) 5 MG tablet, Take 5 mg by mouth 2 times daily., Disp: , Rfl: atorvastatin (Lipitor) 40 MG tablet, Take 40 mg by mouth daily., Disp: , Rfl: Blood Glucose Monitoring Suppl (Blood Glucose Monitor System) w/Device kit, Check glucose 3x daily,Disp: 1 kit, Rfl: 0 fenofibrate (Triglide) 160 MG tablet, Take 160 mg by mouth daily., Disp: , Rfl: gabapentin (Neurontin) 300 MG capsule, Take 300 mg by mouth 2 times daily., Disp: , Rfl: glucose blood test strip, Use as instructed, Disp: 100 each, Rfl: 0 insulin glargine (Lantus) 100 UNIT/ML injection, Inject 32 Units under the skin Nightly., Disp: 10 mL, Rfl: 12 Lancets, Check glucose x3 daily, Disp: 100 each, Rfl: 3 levothyroxine (Tirosint) 112 MCG capsule, Take by mouth every morning (before breakfast)., Disp: , Rfl: metFORMIN (Glucophage) 500 MG tablet, Take 1 tablet (500 mg) by mouth 2 times daily (with meals)., Disp: 60 tablet, Rfl: 6 oxybutynin (Ditropan) 5 MG tablet, Take 10 mg by mouth daily., Disp: , Rfl: Alcohol Swabs (Alcohol Prep) 70 % pads, 1 Pad 3 times daily. (Patient not taking: Reported on 12/24/2024), Disp: 200 each, Rfl: 2 atenolol (Tenormin) 25 MG tablet, Take 1 tablet (25 mg) by mouth 2 times daily. (Patient not taking: Reported on 12/24/2024), Disp: 60 tablet, Rfl: 0 Continuous Glucose Sensor (FreeStyle Javier 3 Plus Sensor) misc, 1 each every 15 days., Disp: 2 each, Rfl: 11 semaglutide (Ozempic) 2 MG/3ML solution pen-injector, Inject 0.5 mg under the skin 1 (one) time perweek., Disp: 3 mL, Rfl: 11 Current Facility-Administered Medications: lidocaine (Uro-Jet) 2 % gel, , Topical, PRN, ALEJANDRINA Ramesh CNP [3] Past Medical History: Diagnosis Date Atrial fibrillation (HCC) Diabetes mellitus (HCC) Hyperlipidemia Hypertension Hypothyroidism Neuropathy [4] Past Surgical History: Procedure Laterality Date BACK SURGERY CHOLECYSTECTOMY [5] No family history on file. documented in this [facility]05-07-2025 Telephone encounter Note* Telephone Encounter - Bella Duenas - 12/16/2024 5:07 PM EDT Name of caller: Alyce Contact phone number: [phone] Relationship to Patient: [facility] Provider: Marcela Practice: [facility] Chief Complaint/Reason for Call: Alyce Physical therapist technical staff assistant with [facility] stated at visit pt had BP reading 84/60 pt was asymptomatic and stated that she felt just fine. Best time of day caller can be reached: any Patient advised that office/PCP has 24-48 business hours to return their call: Yes [id number] Miscellaneous Notes* Telephone Encounter - Bella Duenas - 12/16/2024 5:07 PM EDT Name of caller: Alyce Contact phone number: [phone] Relationship to Patient: [facility] Provider: Marcela Practice: [facility] Chief Complaint/Reason for Call: Alyce Physical therapist technical staff assistant with [facility] stated at visit pt had BP reading 84/60 pt was asymptomatic and stated that she felt just fine. Best time of day caller can be reached: any Patient advised that office/PCP has 24-48 business hours to return their call: Yes documented in this [facility]05-02-2025 History of Present illness Narrative* Nallely Alas, DPM - 12/11/2024 12:45 PM EDTAssociated Order(s): Debridement Post-Procedure Diagnose(s): 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 Wound Care Visit CHIEF COMPLAINT: Chief Complaint Patient presents with Wound Care Follow-up ulceration right foot. No new complaints. Patient presents today with her daughter HISTORY OF PRESENT ILLNESS: The patient is a 84 y.o. female with significant past medical history of Past Medical History: Diagnosis Date Atrial fibrillation (HCC) Diabetes mellitus (HCC) Hyperlipidemia Hypertension Hypothyroidism Neuropathy Past Medical History: Past Medical History: Diagnosis Date Atrial fibrillation (HCC) Diabetes mellitus (HCC) Hyperlipidemia Hypertension Hypothyroidism Neuropathy Past Surgical History: Past Surgical History: Procedure Laterality Date BACK SURGERY CHOLECYSTECTOMY Current Medications: Current Outpatient Medications: Alcohol Swabs (Alcohol Prep) 70 % pads, 1 Pad 3 times daily., Disp: 200 each, Rfl: 2 apixaban (Eliquis) 5 MG tablet, Take 5 mg by mouth 2 times daily., Disp: , Rfl: atenolol (Tenormin) 25 MG tablet, Take 1 tablet (25 mg) by mouth 2 times daily., Disp: 60 tablet, Rfl: 0 atorvastatin (Lipitor) 40 MG tablet, Take 40 mg by mouth daily., Disp: , Rfl: Blood Glucose Monitoring Suppl (Blood Glucose Monitor System) w/Device kit, Check glucose 3x daily,Disp: 1 kit, Rfl: 0 fenofibrate (Triglide) 160 MG tablet, Take 160 mg by mouth daily., Disp: , Rfl: gabapentin (Neurontin) 300 MG capsule, Take 300 mg by mouth 2 times daily., Disp: , Rfl: glucose blood test strip, Use as instructed, Disp: 100 each, Rfl: 0 insulin glargine (Lantus) 100 UNIT/ML injection, Inject 32 Units under the skin Nightly., Disp: 10 mL, Rfl: 12 Insulin Lispro (Humalog) 100 UNIT/ML solution injection, Inject 12 Units under the skin 3 times daily (with meals)., Disp: 10 mL, Rfl: 12 Lancets, Check glucose x3 daily, Disp: 100 each, Rfl: 3 levothyroxine (Tirosint) 112 MCG capsule, Take by mouth every morning (before breakfast)., Disp: , Rfl: linaGLIPtin (Tradjenta) 5 MG tablet, Take 1 tablet (5 mg) by mouth daily., Disp: 30 tablet, Rfl: 3 metFORMIN (Glucophage) 500 MG tablet, Take 1 tablet (500 mg) by mouth 2 times daily (with meals)., Disp: 60 tablet, Rfl: 6 oxybutynin (Ditropan) 5 MG tablet, Take 10 mg by mouth daily., Disp: , Rfl: Current Facility-Administered Medications: lidocaine (Uro-Jet) 2 % gel, , Topical, PRN, Marielos Blair APRN - [facility] Allergies: Allergies Allergen Reactions Tape Rash Social History: Social History Socioeconomic History Marital status: Spouse name: Not on file Number of children: Not on file Years of education: Not on file Highest education level: Not on file Occupational History Not on file Tobacco Use Smoking status: Former Current packs/day: 0.00 Types: Cigarettes Quit date: 1964 Years since quittin.3 Smokeless tobacco: Never Vaping Use Vaping status: Never Used Substance and Sexual Activity Alcohol use: Not Currently Drug use: Never Sexual activity: Not on file Other Topics Concern Not on file Social History Narrative Not on file Social Drivers of Health Financial Resource Strain: Not on file Food Insecurity: No Food Insecurity (12/03/2024) Hunger Vital Sign Worried About Running Out of Food in the Last Year: Never true Ran Out of Food in the Last Year: Never true Transportation Needs: No Transportation Needs (12/03/2024) PRAPARE - Transportation Lack of Transportation (Medical): No Lack of Transportation (Non-Medical): No Physical Activity: Not on file Stress: Not on file Social Connections: Not on file Intimate Partner Violence: Not At Risk (12/03/2024) Humiliation, Afraid, Rape, and Kick questionnaire Fear of Current or Ex-Partner: No Emotionally Abused: No Physically Abused: No Sexually Abused: No Housing Stability: Low Risk (12/03/2024) Housing Stability Vital Sign Unable to Pay for Housing in the Last Year: No Number of Times Moved in the Last Year: 1 Homeless in the Last Year: No Family History: No family history on file. REVIEW OF SYSTEMS: Review of Systems 10 point review of system negative other than above HPI PHYSICAL EXAM: Physical Exam Vitals: BP (!) 146/76 Pulse 80 Temp (!) 35.9 C (96.7 F) Ht 5' 10" (1.778 m) Wt 202 lb (91.6 kg) BMI 28.98 kg/m General Appearance: Alert, oriented, no acute distress Neurologic: No cranial nerve deficit, gait, coordination and speech normal. Complete loss of protective senses but no Wound/Incision 09/18/24 Diabetic Ulcer Foot Right (Active) Wound Image 12/11/24 1256 Site Assessment Granulation 12/11/24 1256 [place]-Wound Assessment Pale;[place] 12/11/24 1256 Wound Length (cm) 0.2 cm 12/11/24 1256 Wound Width (cm) 0.3 cm 12/11/24 1256 Wound Surface Area (cm^2) 0.06 cm^2 12/11/24 1256 Wound Depth (cm) 0.1 cm 12/11/24 1256 Wound Volume (cm^3) 0.006 cm^3 12/11/24 1256 Wound Healing % 97 12/11/24 1256 Drainage Description Unable to assess 12/11/24 1256 Odor None 12/11/24 1256 Drainage Amount Scant 12/11/24 1256 Treatments Cleansed 12/11/24 1256 Primary Dressing Collagen;Xeroform 12/11/24 1256 Secondary Dressing 4x4 gauze 12/11/24 1256 Secured with Medfix tape 12/11/24 1256 Dressing Status New dressing;Clean, dry & intact 12/11/24 1256 Undermining 0.4 cm 10/09/24 1200 Undermining Clock Position of Wound 9;10;11;12 10/09/24 1200 Number of days: 83 Dermatology: Dermal ulcer plantar right midfoot with hyperkeratotic halo and central necrotic debris. The wound is boggy centrally. No erythema. Wound: Wound/Incision 09/18/24 Diabetic Ulcer Foot Right (Active) Wound Image 12/11/24 1256 Site Assessment Granulation 12/11/24 1256 Linda-Wound Assessment Pale;[place] 12/11/24 1256 Wound Length (cm) 0.2 cm 12/11/24 1256 Wound Width (cm) 0.3 cm 12/11/24 1256 Wound Surface Area (cm^2) 0.06 cm^2 12/11/24 1256 Wound Depth (cm) 0.1 cm 12/11/24 1256 Wound Volume (cm^3) 0.006 cm^3 12/11/24 1256 Wound Healing % 97 12/11/24 1256 Drainage Description Unable to assess 12/11/24 1256 Odor None 12/11/24 1256 Drainage Amount Scant 12/11/24 1256 Treatments Cleansed 12/11/24 1256 Primary Dressing Collagen;Xeroform 12/11/24 1256 Secondary Dressing 4x4 gauze 12/11/24 1256 Secured with Medfix tape 12/11/24 1256 Dressing Status New dressing;Clean, dry & intact 12/11/24 1256 Undermining 0.4 cm 10/09/24 1200 Undermining Clock Position of Wound 9;10;11;12 10/09/24 1200 Cardiovascular: Pedal pulses are palpable bilateral MUSCULOSKELETAL: Charcot changes HEENT: Normal Respiratory: Normal respirations Lab Results Component Value Date WBC 8.2 12/05/2024 HGB 10.5 (L) 12/05/2024 HCT 33.8 (L) 12/05/2024 MCV 94.9 12/05/2024 PLT 250 12/05/2024 Lab Results Component Value Date GLUCOSE 239 (H) 12/05/2024 CALCIUM 8.5 (L) 12/05/2024 NA 143 12/05/2024 K 4.5 12/05/2024 CO2 21 (L) 12/05/2024 CL 112 (H) 12/05/2024 BUN 47 (H) 12/05/2024 CREATININE 1.40 (H) 12/05/2024 Lab Results Component Value Date HGBA1C 9.0 (H) 12/02/2024 No results found for: "SEDRATE" Lab Results Component Value Date CRP 3.5 12/02/2024 No results found for: "LABGRAM" No components found for: "LABAERO" No components found for: "LABANAE" No results found for this or any previous visit from the past 365 days. IMPRESSION 1. Pes planus of both feet 2. 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 Diabetic ulcer of other part of right foot associated with diabetes mellitus due to underlying condition, with necrosis of muscle (HCC) 4. Diabetic ulcer of right foot associated with diabetes mellitus due to underlying condition, withnecrosis of muscle, unspecified part of foot (HCC) 5. 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 6. Uncontrolled type 2 diabetes mellitus with hyperglycemia (HCC) PLAN: Orders Placed This Encounter Procedures Wound Care OP Follow-up Follow up in 1 week Dressing Order: Collagen, Xeroform; Three times per week; 4x4 gauze; Medfix tape Order Specific Question: Primary Dressing Answer: Collagen Order Specific Question: Primary Dressing Answer: Xeroform Order Specific Question: Dressing Frequency Answer: Three times per week Order Specific Question: Secondary Dressing Answer: 4x4 gauze Order Specific Question: Secured With Answer: Medfix tape Debridement Wound/Incision 09/18/24 Diabetic Ulcer Foot Right Performed by: Nallely Alas DPM Authorized by: Nallely Alas DPM Consent Consent obtained? verbal Consent given by: patient Risks discussed? procedural risks discussed Debridement Details Performed by: physician Debridement type: surgical Level of debridement: subcutaneous tissue Pain control: lidocaine 2% Pre-debridement measurements Length (cm): 0.2 Width (cm): 0.3 Depth (cm): 0.1 Surface Area (cm^2): 0.06 Post-debridement measurements Length (cm): 1.4 Width (cm): 0.9 Depth (cm): 0.4 Percent debrided: 100% Surface Area (cm^2): 1.26 Area Debrided (cm^2): 1.26 Volume (cm^3): 0.5 Tissue and other material debrided: subcutaneous tissue Devitalized tissue debrided: callus, fibrin, necrotic debris and slough Instrument(s) utilized: curette and blade Bleeding: medium Hemostasis obtained with: pressure Procedural pain (0-10): 0 Post-procedural pain: 0 Response to treatment: procedure was tolerated well No follow-ups on file. Nallely Alas DPM 12/11/2024 2:49 PM documented in this [facility]05-02-2025 Hospital Discharge instructions* Patient Instructions* Liss Acevedo RN - 12/11/2024 12:45 PM EDT Follow-up Appointments: Return Appointment in 2 weeks. Call [place] [facility] at [phone], [facility] at [phone], or [facility] at [phone]. Edema/Swelling: Avoid standing for long periods of time, elevate legs to the level of the heart or above 30 minutesdaily and/or when sitting. Offloading: Avoid pressure to wound site as often as possible. ANY AMOUNT OF PRESSURE WILL DELAY WOUND HEALING. Offloading wound site is extremely important to assist in wound healing. Avoid friction and shearing, do not scoot or slide. Lift your weight up when repositioning. Bathing/Showering: OK to shower but do not soak or submerge wound. Use an antibacterial soap, such as dial to cleanse wound area once the rest of the body has been washed. Nutrition: Follow diet per physician instructions such as increasing protein intake to promote wound healing 100 gram of protein a day If diabetic-Monitor blood sugars to help with wound healing. High blood sugars can affect wound healing. Wound Care: R Plantar foot (x3 weekly) Keep insert on to help with offloading Cleanse wound with mild soap and water and pat dry Apply Collagen to wound bed Apply Xeroform over Collagen Gauze Apply Medifix tape Signs and symptoms of wound infection: - fever - flu-like symptoms - pus or unusual drainage - foul odor - worsening of wound - spreading redness or warmth around the wound - increased pain - increasing and/or uncontrolled blood sugar for diabetics Please call the wound center at [phone] if you are experiencing this. If we are closed and youare unable to reach us in person please go to the ER documented in this [facility]04-26-2025 Hospital course Narrative* Shane Rodriguez MD - 12/05/2024 11:52 AM EDT [facility] Hospitalist Discharge Summary Hanna Nelson : 1940 Admit date: 12/02/2024 Discharge date: 12/05/2024 Admitting Physician: Karolina Cooper MD Primary Care Physician: Dorothy Medrano Visit Status: Admission Code Status: Prior Discharge Diagnoses: Klebsiella UTI Acute infectious encephalopathy due to UTI-improved Type 2 diabetes mellitus with hyperglycemia And peripheral neuropathy Essential hypertension Hypothyroidism Chronic A-fib Obesity Procedures: None Hospital Course: Patient is a 84-year-old female admitted to [facility] via the emergency department with acute metabolic and infectious encephalopathy, she has UTI due to Klebsiella she finished 3 doses of ceftriaxone, clinically improved she was afebrile throughout the stay, no leukocytosis, she also has fluctuating blood sugars, she is a type II DM on insulin, endocrinology followed and adjusted the dose of insulin,, she has a 5-second pause on the intermodal dispatcher, evaluated by cardiology and determined no further workup while here she is asymptomatic will follow-up outpatient. PT and OT recommended home with home health, discharged home in stable condition. Labs reviewed. Consults: Cardiology, Endocrinology Discharge Instructions: Diet: No diet orders on file Activity: as tolerated Recommended Outpatient Tests: Disposition: Patient discharged in stable condition to Home. Greater than 40 minutes spent discharging the patient and coming up with patient discharge plan- labs reviewed Vitals: BP 120/67 (BP Location: Left arm, Patient Position: Sitting) Pulse 63 Temp 36.1 C (96.9F) (Temporal) Resp 18 Ht 5' 10" (1.778 m) Wt 202 lb 4.8 oz (91.8 kg) SpO2 99% BMI 29.03 kg/m Pulse Ox: SpO2 Av.8 % Min: 92 % Max: 99 % Supplemental O2: Physical Exam : Constitutional: Appearance: She is obese and appears weak Cardiovascular: Rate and Rhythm: Normal rate and irregular rhythm. Pulses: Normal pulses. Heart sounds: Normal heart sounds. Pulmonary: Effort: Pulmonary effort is normal. Breath sounds: Normal breath sounds. Abdominal: Palpations: Abdomen is soft. Tenderness: There is abdominal tenderness. Musculoskeletal: General: No swelling. Normal range of motion. Discharge Medications: Medication List START taking these medications insulin glargine 100 UNIT/ML injection Commonly known as: Lantus Inject 32 Units under the skin Nightly. Insulin Lispro 100 UNIT/ML solution injection Commonly known as: Humalog Inject 12 Units under the skin 3 times daily (with meals). CHANGE how you take these medications atenolol 25 MG tablet Commonly known as: Tenormin Take 1 tablet (25 mg) by mouth 2 times daily. What changed: medication strength how much to take CONTINUE taking these medications Alcohol Prep 70 % pads 1 Pad 3 times daily. atorvastatin 40 MG tablet Commonly known as: Lipitor Blood Glucose Monitor System w/Device kit Check glucose 3x daily Eliquis 5 MG tablet Generic drug: apixaban fenofibrate 160 MG tablet Commonly known as: Triglide gabapentin 300 MG capsule Commonly known as: Neurontin glucose blood test strip Use as instructed Lancets Check glucose x3 daily levothyroxine 112 MCG capsule Commonly known as: Tirosint metFORMIN 500 MG tablet Commonly known as: Glucophage Take 1 tablet (500 mg) by mouth 2 times daily (with meals). oxybutynin 5 MG tablet Commonly known as: Ditropan Tradjenta 5 MG tablet Generic drug: linaGLIPtin Take 1 tablet (5 mg) by mouth daily. STOP taking these medications insulin degludec 100 UNIT/ML injection Commonly known as: Tresiba FlexTouch Where to Get Your Medications These medications were sent to [facility] - [place] [id number] [facility] [address] [facility] [id number] atenolol 25 MG tablet insulin glargine 100 UNIT/ML injection Insulin Lispro 100 UNIT/ML solution injection Recommended Follow-up: Dorothy Medrano [address] [place] [phone] Complexity of Follow up: [] Moderate Complexity: follow up within 7-14 calendar days (21747) [x] Severe Complexity: follow up within 7 calendar days (76615) Follow up Testing, Pending results or Referrals at Transitional Care Visit: [x] yes [] No Instructions to MA: Please call patient on day after discharge (must document patient contacted within 2 business days of discharge). Follow up questions for MA: 1. Did you get medications filled and taking them as instructed from discharge? 2. Are you following your discharge instructions from your hospital stay? 3. Please confirm patient is scheduled for a follow up appointment within the above time frame. A total of more than 45 mins has been spent in discharging the patient. Signed: @ @ Division of Hospitalist Medicine Inpatient Medical Services 12/05/2024, 2:14 PM This report was created using the [employer] Speaking voice- activated system. Despiteprompt dictation and careful editorial review, there may be subtle contextual errors in this report, due to misrecognition of the spoken word. documented in this [facility]04-26-2025 [facility] 12-05-2024 Plan of care note* Care Plan - Marielle Scott RN - 12/05/2024 11:39 AM EDT Problem: Neurosensory - Adult Goal: Achieves stable or improved neurological status Outcome: Adequate for Discharge Goal: Achieves maximal functionality and self care Outcome: Adequate for Discharge Problem: Respiratory - Adult Goal: Achieves optimal ventilation and oxygenation Outcome: Adequate for Discharge Problem: Cardiovascular - Adult Goal: Maintains optimal cardiac output and hemodynamic stability Outcome: Adequate for Discharge Problem: Skin/Tissue Integrity - Adult Goal: Skin integrity remains intact Outcome: Adequate for Discharge Goal: Oral mucous membranes remain intact Outcome: Adequate for Discharge Problem: Musculoskeletal - Adult Goal: Return ADL status to a safe level of function Outcome: Adequate for Discharge Problem: Knowledge Deficit Goal: Patient/family/caregiver demonstrates understanding of disease process, treatment plan, medications, and discharge instructions Outcome: Adequate for Discharge Problem: Potential for Compromised Skin Integrity Goal: Skin Integrity is Maintained or Improved Outcome: Adequate for Discharge Goal: Nutritional status is improving Outcome: Adequate for Discharge Problem: Urinary Incontinence Goal: Perineal skin integrity is maintained or improved Outcome: Adequate for Discharge Problem: Problem Interventions Goal: Dietary Supplements Outcome: Adequate for Discharge Goal: Promote nutritional intake Outcome: Adequate for Discharge [id number] Miscellaneous Notes* Care Plan - Marielle Scott RN - 12/05/2024 11:39 AM EDT Problem: Neurosensory - Adult Goal: Achieves stable or improved neurological status Outcome: Adequate for Discharge Goal: Achieves maximal functionality and self care Outcome: Adequate for Discharge Problem: Respiratory - Adult Goal: Achieves optimal ventilation and oxygenation Outcome: Adequate for Discharge Problem: Cardiovascular - Adult Goal: Maintains optimal cardiac output and hemodynamic stability Outcome: Adequate for Discharge Problem: Skin/Tissue Integrity - Adult Goal: Skin integrity remains intact Outcome: Adequate for Discharge Goal: Oral mucous membranes remain intact Outcome: Adequate for Discharge Problem: Musculoskeletal - Adult Goal: Return ADL status to a safe level of function Outcome: Adequate for Discharge Problem: Knowledge Deficit Goal: Patient/family/caregiver demonstrates understanding of disease process, treatment plan, medications, and discharge instructions Outcome: Adequate for Discharge Problem: Potential for Compromised Skin Integrity Goal: Skin Integrity is Maintained or Improved Outcome: Adequate for Discharge Goal: Nutritional status is improving Outcome: Adequate for Discharge Problem: Urinary Incontinence Goal: Perineal skin integrity is maintained or improved Outcome: Adequate for Discharge Problem: Problem Interventions Goal: Dietary Supplements Outcome: Adequate for Discharge Goal: Promote nutritional intake Outcome: Adequate for Discharge * Care Coordination - Unknown Case Management - 12/05/2024 10:13 AM EDT Patient Choice Patient Name: HANNA NELSON Date of : 1940 All Providers Sent Referral Name: [facility]. Phone: [phone] [address]: [address] [place] [address] * Care Plan - Yanira Simmons RN - 12/04/2024 4:48 PM EDT Problem: Neurosensory - Adult Goal: Achieves stable or improved neurological status Outcome: Progressing Problem: Respiratory - Adult Goal: Achieves optimal ventilation and oxygenation Outcome: Progressing Problem: Cardiovascular - Adult Goal: Maintains optimal cardiac output and hemodynamic stability Outcome: Progressing * Home Care - Bella Meléndez RN - 12/04/2024 2:58 PM EDT Spoke to patient and son regarding home care services. They would like to resume services with [facility] when discharge. Referral sent in Care port. * Care Coordination - Amita Genao RN - 12/04/2024 2:55 PM EDT Care Management Progress Note Chart reviewed. PT/OT saw and are recommending [facility] PT/OT at [place] [facility] liaison secure chatted to follow up. Length of Stay (Days): 1 GMLOS: 2.8 * Care Plan - Dayna Jacques RN - 12/04/2024 12:38 AM EDT Problem: Neurosensory - Adult Goal: Achieves stable or improved neurological status Outcome: Progressing Goal: Achieves maximal functionality and self care Outcome: Progressing Problem: Respiratory - Adult Goal: Achieves optimal ventilation and oxygenation Outcome: Progressing Problem: Cardiovascular - Adult Goal: Maintains optimal cardiac output and hemodynamic stability Outcome: Progressing Problem: Skin/Tissue Integrity - Adult Goal: Skin integrity remains intact Outcome: Progressing Goal: Oral mucous membranes remain intact Outcome: Progressing Problem: Musculoskeletal - Adult Goal: Return ADL status to a safe level of function Outcome: Progressing Problem: Knowledge Deficit Goal: Patient/family/caregiver demonstrates understanding of disease process, treatment plan, medications, and discharge instructions Outcome: Progressing Problem: Potential for Compromised Skin Integrity Goal: Skin Integrity is Maintained or Improved Outcome: Progressing Goal: Nutritional status is improving Outcome: Progressing Problem: Urinary Incontinence Goal: Perineal skin integrity is maintained or improved Outcome: Progressing Problem: Problem Interventions Goal: Dietary Supplements Outcome: Progressing Goal: Promote nutritional intake Outcome: Progressing * Care Coordination - Amita Genao RN - 12/03/2024 3:00 PM EDT Care Management Progress Note Chart reviewed. Pt admitted to for evaluation of AMS/UTI. Geriatrics consulted and following. Ptcontinues on IV Rocephin. Met with pt and family at bedside, introduced self and explained role. Ptsees Dr. Ellis for PCP. Pt has insurance and prescription coverage. Per son, denies any difficulties affording scripts. Pt is current with [facility]. Uses [facility]. [facility] liaison made aware. Pt uses [facility] in [place] for scripts. Pt has walker, rollator and cane . Will continue to follow. Length of Stay (Days): 0 GMLOS: No GMLOS Documented * Significant Event - Shane Rodriguez MD - 12/03/2024 11:50 AM EDT Patient seen and examined, admitted earlier by the bridge teacher, see H&P for details, patient admitted for acute delirium possibly due to infectious encephalopathy and UTI, alert and oriented x 2 this a.m., not in acute distress, blood sugars uncontrolled, he is a type II diabetic on insulin, continue ceftriaxone and follow urine culture, adjust insulin, carb controlled diet. Will continue to follow. Also discussed with her daughter at bedside regarding recurrent UTIs and per daughter her HbA1c is 12 and her blood sugars have improved since September and she is on javier and sees it specialist will have endocrinology see her while in the hospital. Patient is aware of the carb controlled diet. Eating well, does not require IV fluids Check renal ultrasound Total time spent 45 minutes prolonged time. * Home Care - Bella Meléndez RN - 12/03/2024 11:09 AM EDT Patient is currently active with [facility]. The patients current certification period will on 12/03/2024. The patient is currently receiving SN, PT services through the agency. Home CareLiaison to continue to follow. * Care Plan - Scott Aaron RN - 12/03/2024 1:45 AM EDT Problem: Neurosensory - Adult Goal: Achieves stable or improved neurological status 12/03/2024 014 by Scott Aaron RN Outcome: Progressing 12/03/2024 0118 by Scott Aaron RN Outcome: Progressing Goal: Achieves maximal functionality and self care 12/03/2024 014 by Scott Aaron RN Outcome: Progressing 12/03/2024 0118 by Scott Aaron RN Outcome: Progressing Problem: Respiratory - Adult Goal: Achieves optimal ventilation and oxygenation 12/03/2024 014 by Scott Aaron RN Outcome: Progressing 12/03/2024 0118 by Scott Aaron RN Outcome: Progressing Problem: Cardiovascular - Adult Goal: Maintains optimal cardiac output and hemodynamic stability 12/03/2024 014 by Scott Aaron RN Outcome: Progressing 12/03/2024 0118 by Scott Aaron RN Outcome: Progressing * Care Plan - Scott Aaron RN - 12/03/2024 1:18 AM EDT Problem: Neurosensory - Adult Goal: Achieves stable or improved neurological status Outcome: Progressing Goal: Achieves maximal functionality and self care Outcome: Progressing Problem: Respiratory - Adult Goal: Achieves optimal ventilation and oxygenation Outcome: Progressing Problem: Cardiovascular - Adult Goal: Maintains optimal cardiac output and hemodynamic stability Outcome: Progressing Problem: Skin/Tissue Integrity - Adult Goal: Skin integrity remains intact Outcome: Progressing Goal: Oral mucous membranes remain intact Outcome: Progressing documented in this [facility]04-26-2025 Note* Care Coordination - Unknown Case Management - 12/05/2024 10:13 AM EDT Patient Choice Patient Name: HANNA NELSON Date of : 1940 All Providers Sent Referral Name: [facility]. Phone: [phone] Address: [address] [place] [address] [place], [place] [id number] [id number] Note* Care Coordination - Unknown Case Management - 12/05/2024 10:13 AM EDT Patient Choice Patient Name: HANNA NELSON Date of : 1940 All Providers Sent Referral Name: [facility]. Phone: [phone] Address: [address] [place] [address] [place], [place] [id number] [place] [id number] History of Present illness Narrative* Ashleigh Ross, ALEJANDRINA - NUCLEAR PLANT INSTRUMENT TECHNICIAN - 12/04/2024 5:55 PM EDT Department of Internal Medicine Division of Endocrinology, Diabetes, & Metabolism Endocrinology Note Patient Name: Hanna Nelson : 1940 AGE: 84 y.o. Room/Bed: [facility] B Admission Date: 12/02/2024 Visit Date: 12/04/2024 Reason for Endocrine Consult: Type 2 diabetes mellitus with hyperglycemia on insulin Provider/Team Requesting Consult: Shane Rodriguez PCP: Dorothy Jimenezpt Tactical Air Control Party Manager: No ASSESSMENT: Type 2 diabetes with hyperglycemia Urinary tract infection A-fib with RVR Elevated creatinine Wound to right foot PLAN: Increase Lantus 32 units Increase Humalog to 12/12 units TID with meals Will hold tradjenta while inpatient ICU goal <180 GMF goal <150 POCT BG ACHS Hypoglycemia management per protocol Carb controlled diet Most recent TSH-3.34-09/21/ Continue levothyroxine 112 mcg daily ANTICIPATED ENDOCRINE HOME GOING RECOMMENDATIONS: Optimized for Discharge from Endocrine standpoint: Yes Home Going Endocrine Rx Recommendations-- Metformin 500 mg BID with meals Start Tradjenta 5 mg daily Start Lantus - Current dose on day of discharge. Outpt Follow Up-- As previously scheduled SUBJECTIVE/HPI: CHIEF COMPLAINT: Chief Complaint Patient presents with Altered Mental Status 84 y.o. female who presents to the emergency department complaining of confusion. History aided by family. Family explained that patient had moved to the ER in the last few months. She has been having issues with her diabetes and also has had recurrent urinary tract infections. Today they tried to call the patient and her phone was not picking up. They suspected that she had unplugs. They also were not able to get readings off of her continuous glucose monitor which they typically are able to do from remote site. Because of these abnormalities they went to check on the patient suspecting thatshe may be confused and possibly dealing with urinary tract infection. They went to patient's home and she was confused Type of DM: 2 Onset of DM: age 49 - [id number] Home DM Medication Regimen: Tradjenta 5 mg daily, metformin 1 tablet twice a day Tresiba 30 units at night DM control (last A1c/glucose data): Lab Results Component Value Date HGBA1C 9.0 (H) 12/02/2024 Family is at bedside son is primary caregiver but also daughter also assists at times Family is very pleased with her blood sugars since she was discharged from the hospital in September Her wound to her foot has been healing and is much improved daily relate this to her controlled blood sugars She is wearing a javier 3 at home she is using her phone and her phone is in her daughter's car so cannot be reviewed at this time She has not had any lows at home Family asking many appropriate questions as far as signs and symptoms of urinary tract infection. How it relates to her blood sugars and her blood pressure TODAY- BGLs as below Spoke to patient and son at bedside She is awake and wanting to go home Has been eating meals Denies pain nausea Glucose Date/Time Value Ref Range Status 12/04/2024 04:47 PM 301 (H) 70 - 100 mg/dL Final 12/04/2024 10:45 AM >450 (H) 70 - 100 mg/dL Final Comment: Caregiver Notified; 12/04/2024 06:23 AM 294 (H) 70 - 100 mg/dL Final 12/03/2024 09:17 PM 316 (H) 70 - 100 mg/dL Final 12/03/2024 04:43 PM 303 (H) 70 - 100 mg/dL Final 12/03/2024 11:23 AM 220 (H) 70 - 100 mg/dL Final Review of Systems Constitutional: Negative for activity change, appetite change and unexpected weight change. Gastrointestinal: Negative for diarrhea, nausea and vomiting. Endocrine: Negative for polydipsia, polyphagia and polyuria. Genitourinary: Negative for dysuria. Skin: Negative for color change, pallor and wound. ROS negative except for those mentioned in HPI. OBJECTIVE: Vitals: 12/04/24 0344 12/04/24 0700 12/04/24 1045 12/04/24 1647 BP: 110/75 (!) 157/103 109/65 136/69 BP Location: Left arm Left arm Left arm Patient Position: Lying Lying Lying Pulse: 85 90 97 68 Resp: 18 18 Temp: 36.6 C (97.9 F) 36.2 C (97.1 F) (!) 35.9 C (96.7 F) 36.6 C (97.9 F) TempSrc: Temporal Temporal Temporal Temporal SpO2: 93% 96% 96% 98% Weight: Height: Physical Exam Vitals reviewed. Constitutional: General: She is not in acute distress. Appearance: Normal appearance. She is obese. She is not ill-appearing. HENT: Head: Normocephalic and atraumatic. Left Ear: External ear normal. Nose: Nose normal. Mouth/Throat: Mouth: Mucous membranes are moist. Cardiovascular: Rate and Rhythm: Normal rate and regular rhythm. Pulmonary: Effort: Pulmonary effort is normal. No respiratory distress. Musculoskeletal: General: Normal range of motion. Skin: General: Skin is warm and dry. Neurological: General: No focal deficit present. Mental Status: She is alert. Psychiatric: Mood and Affect: Mood normal. Behavior: Behavior normal. 24 hour intake/output: Intake/Output Summary (Last 24 hours) at 12/04/2024 1756 Last data filed at 12/04/2024 1400 Gross per 24 hour Intake 920 ml Output 400 ml Net 520 ml Diet: Adult diet Regular; 5 carb choices (75 gm/meal) Medications (as per EMR): HomeMeds: Current Outpatient Medications Medication Instructions Alcohol Swabs (Alcohol Prep) 70 % pads 1 Pad, Does not apply, 3 times daily apixaban (ELIQUIS) 5 mg, 2 times daily atenolol (TENORMIN) 50 mg, 2 times daily atorvastatin (LIPITOR) 40 mg, Daily Blood Glucose Monitoring Suppl (Blood Glucose Monitor System) w/Device kit Check glucose 3x daily fenofibrate (TRIGLIDE) 160 mg, Daily gabapentin (NEURONTIN) 300 mg, 2 times daily glucose blood test strip Use as instructed insulin degludec (TRESIBA FLEXTOUCH) 30 Units, SubCUTAneous, Nightly Lancets Check glucose x3 daily levothyroxine (Tirosint) 112 MCG capsule Daily before breakfast metFORMIN (GLUCOPHAGE) 500 mg, Oral, 2 times daily with meals oxybutynin (DITROPAN) 10 mg, Daily Tradjenta 5 mg, Oral, Daily Scheduled Meds:apixaban, 5 mg, Oral, BID atenolol, 50 mg, Oral, BID atorvastatin, 40 mg, Oral, Daily cefTRIAXone, 1,000 mg, IntraVENous, q24h [START ON 12/05/2024] cholecalciferol, 2,000 Units, Oral, Daily fenofibrate, 160 mg, Oral, Daily gabapentin, 300 mg, Oral, BID insulin glargine, 26 Units, SubCUTAneous, Nightly insulin lispro, 0-6 Units, SubCUTAneous, TID WC insulin lispro, 8 Units, SubCUTAneous, TID WC levothyroxine, 112 mcg, Oral, qAM AC linaGLIPtin, 5 mg, Oral, Daily Continuous Infusions: PRN Meds:PRN medications: acetaminophen OR acetaminophen, dextrose, dextrose, glucagon (rDNA), glucose, melatonin, ondansetron ODT OR ondansetron, polyethylene glycol (PEG) 3350 Diagnostic Workup: I reviewed pertinent Laboratory results, Radiographic results, and Other Clinical Notes at the timeof today's encounter. Labs: No components found for: "LABA1C" No components found for: "EAG" Lab Results Component Value Date NA 138 12/04/2024 K 4.5 12/04/2024 CL 110 (H) 12/04/2024 CO2 19 (L) 12/04/2024 BUN 40 (H) 12/04/2024 CREATININE 1.28 (H) 12/04/2024 GLUCOSE 251 (H) 12/04/2024 CALCIUM 8.6 (L) 12/04/2024 No results found for: "CHLPL", "CHOL" No results found for: "TRIG" No results found for: "HDL" No results found for: "LDLCALC" No results found for: "VLDL" No results found for: "CHOLHDLRATIO" No results found for: "VCMG66CLS" Lab Results Component Value Date TSH 3.34 09/21/2024 Radiology reportsas per the Radiologist Radiology: US renal complete Result Date: 12/03/2024 Patient Name: HANNA NELSON : 1940 Exam Date/Time: 12/03/2024 12:02 Procedure: US RENAL COMPLETE Ordering Provider: RODRIGUEZ MAHAVEER Reason For Exam: UTI, recurrent/complicated (Female) RENAL ULTRASOUND CLINICAL INDICATION: Urinary tract infection, recurrent/complicated (Female) Sonographic images of the bilateral kidneys andbladder were obtained. COMPARISON: None. FINDINGS: RIGHT KIDNEY: Size: 12.5 cm Cortex: Normal cortical thickness and echogenicity. Hydronephrosis: None Calculi: None Cysts: 3.9 cm simple upper pole cyst is benign and of no clinical significance. LEFT KIDNEY: Size: 10.3 cm Cortex: Normal cortical thickness and echogenicity. Hydronephrosis: None Calculi: None Cysts: 1.4 cm cyst in the interpolar cortex which is simple and does not require follow-up BLADDER: The bladder is grossly unremarkable aside from minimal debris in the bladder lumen. Other: No mass or fluid collection is seen adjacent to the kidneys. No hydronephrosis or nephrolithiasis. Minimal intraluminal debris in the urinary bladder. Report Dictated on Electronically Signed By: Patel Ortiz MD Electronically Signed Date/Time: 12/03/2024 12:37 PM EDT POCT glucose meter Result Date: 12/03/2024 Performed by: Rodrigo Hsieh [facility], [address] [place] [address] CLIA ID: [id number] ECG 12 lead Atrial fibrillation Borderline left axis deviation Borderline T wave abnormalities Borderline prolonged QT interval No previous ECG available for comparison Electronically Signed On 12-03-2024 10:10:35 EDT by Vero Carson POCT glucose meter Result Date: 12/03/2024 Performed by: Rodrigo [facility], [address] [place] [id number] CLIA ID: [id number] POCT glucose meter Result Date: 12/03/2024 Performed by: [facility], [address] [facility] [address] CLIA ID: [id number] CT head wo IV contrast Result Date: 12/02/2024 [facility] 1940 [id number] Exam Date/Time: 12/02/2024 22:30 Procedure: CT HEAD WO IV CONTRAST Ordering Provider: MARIE DUSTIN Reason For Exam: confusion CT HEAD: Clinical Indication: Confusion Imaging Technique: Multipleaxial 3mm CT images of the head were obtained from the skull base to the vertex. Coronal and sagittal reconstructs were rendered. Dose reduction was employed with automated exposure control. Comparison: none FINDINGS: There is no intracranial hemorrhage. There is global volume loss with mild small vessel ischemia. The calvarium is intact. The globes are symmetric. The nasal turbinates are edematou s which narrows the nasal passageway. The mastoid air cells are pneumatized. There is no fluid in the right or left middle ear. No acute intracranial process. Report Dictated on Electronically Signed By: Priscila Miramontes MD Electronically Signed Date/Time: 12/02/2024 10:44 PM EDT History/Other: Past Medical History: Past Medical History: Diagnosis Date Atrial fibrillation (HCC) Diabetes mellitus (HCC) Hyperlipidemia Hypertension Hypothyroidism Neuropathy Past Surgical History: Past Surgical History: Procedure Laterality Date BACK SURGERY CHOLECYSTECTOMY Allergy(ies): Allergies Allergen Reactions Tape Rash Family History: No family history on file. Social History: Social History Tobacco Use Smoking status: Former Current packs/day: 0.00 Types: Cigarettes Quit date: 1965 Years since quittin.3 Smokeless tobacco: Never Vaping Use Vaping status: Never Used Substance Use Topics Alcohol use: Not Currently Drug use: Never Portions of the information within this encounter were entered using an electronic dictation system. Best attempts were made to edit/proofread the information prior to note completion. Despite the review of information, some errors may remain. If there are questions related to the information contained within the note please contact the signing physician directly. I spent35 minutes with the pt which involved coordination of care, medical evaluation, review of records, and/or counseling of the pt regarding his/her condition/disease state/prognosis on the date of this note. * Shane Rodriguez MD - 12/04/2024 12:10 PM EDT Hospitalist Progress Note 12/04/[id number]: Please secure chat me for patient care issues. [phone]: Please secure chat [facility] Hospitalist for any issues. Subjective: Admit Date: 12/02/2024 PCP: Dorothy Medrano Room#: B2-251/B2-251 B Brief History: Patient is an 84-year-old female who was admitted to [facility] with alteredsensorium and delirium, being treated for UTI, urine growing Klebsiella, patient also has uncontrolled type 2 diabetes mellitus on insulin, however blood sugars improved since September 2024, recent HbA1c 12, endocrinology following, geriatrics following. Consults : Geriatrics, endocrinology, cardiology Chief Complaint : Patient comfortably in the bed, not appear to be in acute distress, denies any worsening urinary complaints, denies any chest pain or palpitations Little over 5-second pause on the monitor, cardiology contacted Daughter at bedside. Adult diet Regular; 5 carb choices (75 gm/meal) @[id number]@ 24HR INTAKE/OUTPUT: Intake/Output Summary (Last 24 hours) at 12/04/2024 1210 Last data filed at 12/03/2024 203 Gross per 24 hour Intake 200 ml Output 725 ml Net -525 ml Past Medical History: Past Medical History: Diagnosis Date Atrial fibrillation (HCC) Diabetes mellitus (HCC) Hyperlipidemia Hypertension Hypothyroidism Neuropathy LABS: CBC: Recent Labs 12/02/24213112/04/24 0306 WBC 6.9 9.7 RBC 4.15 4.15 HGB 12.5 12.4 HCT 36.9 38.4 MCV 88.9 92.5 RDW 13.4 13.9 PLT 276 303 BMP: Recent Labs 12/02/24213112/04/24 0306 NA 143 138 K 4.6 4.5 CL 112* 110* CO2 18* 19* BUN 46* 40* CREATININE 1.22* 1.28* GLUCOSE 266* 251* CALCIUM 9.8 8.6* ANIONGAP 13 9 LIVER PROFILE: Recent Labs 12/02/24213112/04/24 0306 AST 27 19 ALT 19 16 BILITOT 0.4 0.3 ALKPHOS 63 51 PROT 7.6 6.3* PT/INR: No results for input(s): "PROTIME", "INR" in the last 72 hours. CARDIAC ENZYMES: No results for input(s): "TROPONINI" in the last 72 hours. Procalcitonin: Lab Results Component Value Date PROCAL 0.07 (H) 12/02/2024 COVID-19 PCR: No results for input(s): "COVID19" in the last 72 hours. Objective: Vitals: BP 109/65 (BP Location: Left arm, Patient Position: Lying) Pulse 97 Temp (!) 35.9 C (96.7 F) (Temporal) Resp 18 Ht 5' 10" (1.778 m) Wt 202 lb 4.8 oz (91.8 kg) SpO2 96% BMI 29.03kg/m Pulse Ox: SpO2 Av.6 % Min: 93 % Max: 96 % Physical Exam Constitutional: Appearance: She is obese. She is ill-appearing. Cardiovascular: Rate and Rhythm: Normal rate and regular rhythm. Pulses: Normal pulses. Heart sounds: Normal heart sounds. Pulmonary: Effort: Pulmonary effort is normal. Breath sounds: Normal breath sounds. Abdominal: Palpations: Abdomen is soft. Tenderness: There is abdominal tenderness. Musculoskeletal: General: No swelling. Normal range of motion. Medications: apixaban, 5 mg, Oral, BID atenolol, 50 mg, Oral, BID atorvastatin, 40 mg, Oral, Daily cefTRIAXone, 1,000 mg, IntraVENous, q24h fenofibrate, 160 mg, Oral, Daily gabapentin, 300 mg, Oral, BID insulin glargine, 26 Units, SubCUTAneous, Nightly insulin lispro, 0-6 Units, SubCUTAneous, TID WC insulin lispro, 8 Units, SubCUTAneous, TID WC levothyroxine, 112 mcg, Oral, qAM AC linaGLIPtin, 5 mg, Oral, Daily Assessment Acute Problems : Klebsiella UTI Acute infectious encephalopathy due to UTI-improved Type 2 diabetes mellitus with hyperglycemia HbA1c 9, improved from 12 -on insulin basal bolus therapy with peripheral neuropathy Essential hypertension Hypothyroidism Chronic A-fib Obesity Stable chronic problems affecting care, new non-acute diagnoses: Past Medical History: Diagnosis Date Atrial fibrillation (HCC) Diabetes mellitus (HCC) Hyperlipidemia Hypertension Hypothyroidism Neuropathy Medical Decision Making 12/04 - Patient feels better today, daughter at bedside, denies any worsening urinary complaints, onceftriaxone, urine growing Klebsiella species, await sensitivities, appreciate endocrinology input for blood sugar management, insulin dosages adjusted, 5.64-second pause on the telemetry, will consult cardiology. Patient had no new symptoms, potassium 4.5, added magnesium to labs. Therapy recommended home with home health -am labs, replace lytes prn -increase activity -DVT prophylaxis: [] Lovenox [] Heparin [] SCDs [x] Encourage ambulation [x] Already on Anticoagulation - GI prophylaxis : Anticipated Discharge - Date - December 05 or - Location - Home with home health - Pending the following -clinical improvement Total time spent (which include face to face and non face to face encounters) : 65 minutes Toxic drug monitoring/narrow therapeutic index drug monitoring : # Drug name : Glargine, lispro # Route administered : Subcutaneous # Method of monitoring : Accu-Cheks Extended Emergency Contact Information Primary Emergency Contact: Hi Nelson Relation: Son Preferred language: Burmese Metal Bumper needed? No Secondary Emergency Contact: Melba Black [facility] [place] [employer] Relation: Daughter Shane Rodriguez MD Division of Hospitalist Medicine Acute care solutions PAGER: Epic chat * Tiarra Soria, PT - 12/04/2024 11:13 AM EDT Images from the original note were not included. PHYSICAL THERAPY [facility] Initial Evaluation Name/MRN: Hanna Nelson ([id number]) Evaluation Date: 12/04/2024 Date of : 1940 Admission Date: 12/02/2024 9:17 PM Age: 84 y.o. Room/Bed: [facility] B Discharge Recommendation: Home with assist PRN, Home with Home health PT Equipment Needed: Yes Mobility Devices: Walker Walker: Rolling Other: Pt owns a rollator, however could benefit from the increased stability provided with a FWW Assessment IMPRESSION: Pt presents with decreased functional mobility, decreased strength, decreased safety awareness, decreased endurance and impaired balance. Pt has decreased standing balance requiring 1 person and FWW for safety at this time placing her at an increased risk of falling. Pt could benefit from continued PT in order to address her decreased functional mobility, strength, balance and safety.Pt has medical history as indicated below that contributes to her clinical presentation. At baseline patient is functionally independent with no device, rollator PRN. Currently patient is SBA with FWW and is anticipated to progress with acute therapies and medical management in order to return homewith assist and [facility] PT. Admitting Diagnosis: Pt admitted with altered mental status and UTI. Prognosis: good Performance Deficits /Impairments: Decreased Functional Mobility, Decreased ADL status, Decreased Strength, Decreased Safety Awareness, Decreased Endurance, and Decreased Balance Decision Making: Medium Complexity Subjective Patient pleasant and agreeable to therapy session this date. Per RN patient okay for therapy. Observation: no lines present Pain: Pt denies any current pain. Past Medical History: Past Medical History: Diagnosis Date Atrial fibrillation (HCC) Diabetes mellitus (HCC) Hyperlipidemia Hypertension Hypothyroidism Neuropathy Past Surgical History: Past Surgical History: Procedure Laterality Date BACK SURGERY CHOLECYSTECTOMY Admission Diagnosis: Patient Active Problem List Diagnosis Date Noted Confusion 12/02/2024 Pes planus of both feet 10/16/2024 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 10/16/2024 Non-pressure chronic ulcer of other part of right foot with necrosis of muscle ([facility]) 10/16/2024 Diabetic ulcer of right foot associated with diabetes mellitus due to underlying condition, with necrosis of muscle ([facility]) 10/09/2024 Uncontrolled type 2 diabetes mellitus with hyperglycemia ([facility]) 09/18/2024 Medical Precautions: No active isolations Proper PPE donned/doffed in accordance with facility standards. Fall Risk: Proctor Fall Risk Score: 85 (Low Risk) Proctor Fall Risk Score: 85 (High Risk) Precautions/Restrictions: Fall Precautions Family/Caregiver Present: child(aguila) Overall Cognitive Status: Exceptions - Safety judgement: decreased awareness of need for assistance and decreased awareness of need for safety - Problem solving: decreased awareness of errors Overall Orientation Status: Oriented x4 Vision: No Visual Deficits Hearing: normal Social/Functional History Patient admitted from home. Lives With: Alone Type of Home: single family home Home Layout: Single Level Home Home Access: Stairs to Enter without Rails (# of stairs: 1) Bathroom Shower/Tub: Washes at sink/bed Washes at sink but has walk in shower with chair Toilet: Standard and Grab Bars Home Equipment: rollator Homemaking Responsibilities: Independent Receives Help From: None Active Bindery Manager: Yes Prior Level of Function Prior Level of ADL Function: Independent Prior Level of Mobility: Independent; Device: None and Rollator - rollator PRN Prior Level of Transfers: Independent Objective Lower Extremity Assessment AROM: WFL Strength: Pt demonstrates appropriate B LE and quad strength in order to safely participate in OOB mobility, generalized weakness noted Bed Mobility: Supine to sit: Supervision Sit to supine: Supervision Scooting: Supervision Denies dizziness with positional changes. Increased time to complete. Transfers Sit to stand: SBA, to FWW from EOB Stand to sit: SBA Denies dizziness on initial stance. Cues for hand placement on descent and safe placement of FWW aspatient attempts to push to the side on approach to surface. Ambulation Ambulation 1 Assistive device(s) used: Front wheeled walker Assist level: SBA Distance (ft): 75 ft x 1 Quality of gait: No LOB, antalgic, reciprocal stepping, B foot clearance, uneven step length, slow shannan Pt demonstrates no true LOB, however reports feelings of knee buckling (none observed) requiring increased UE support on FWW at this time. Outcome Measures AM-PAC How much HELP from another person do you currently need Turning from your back to your side while in a flat bed without using bedrails?: None Moving from lying on your back to sitting on the side of a flat bed without using bedrails?: None Moving to and from a bed to a chair (including a wheelchair)?: A Little Standing up from a chair using your arms (wheelchair or bedside chair)?: A Little Walking in a hospital room?: A Little Stair climbing assessed?: No AM-PAC Inpatient Mobility Raw Score (No Stairs) : 17 JH-HLM -HLM Score: Walked 25 ft or more (i.e. walked outside of room) Plan Pt would benefit from skilled acute PT services to address Strengthening, ROM, Gait Training, Balance Training, Self-Care/ADL Training, Functional Mobility Training, Endurance Training, Safety Education and Training, Stair Training, Equipment Evaluation/Education, Home Management Training, and Patient/Caregiver Training. Frequency: 5 visits Barriers: Decreased endurance Safety/Education Safety Safety Devices in place: All fall risk precautions in place, call light within reach, left in bed, bed alarm in place, gait belt, patient at risk for falls, and nurse notified Restraints: N/A Education Education Given To: patient Education Provided: PT Role, PT Goals, Gait Training, Plan of Care, Transfer Training, Equipment, Fall Prevention Education, Discharge Recommendations, and Benefits of Increasing Activity Education Method: Verbal, Demonstration, and Teach Back Barriers to Learning: None Education Outcome: Verbalized Understanding, Demonstrated Understanding, and Continued Education Needed Goals Patient Stated Goal: Patient states she wants to get home. Encounter Problems Encounter Problems (Active) Balance Patient will maintain dynamic standing balance for 5 minutes with modified independence in order todemonstrate decreased risk of falling. Start: 12/04/24 Expected End: 12/11/24 Exercise Patient will complete lower extremity exercises for 1-2 sets / 10 reps in order to improve strengthand activity tolerance for mobility. Start: 12/04/24 Expected End: 12/11/24 Mobility Patient will ambulate 100 feet with modified independence and least restrictive device in order to improve safety and independence with mobility. Start: 12/04/24 Expected End: 12/11/24 Patient will be able to go up and down a curb/step with least restrictive device and modified independence in order to safely negotiate home. Start: 12/04/24 Expected End: 12/11/24 Transfers Patient will perform bed mobility with modified independence in order to improve independence and prepare for out of bed mobility. Start: 12/04/24 Expected End: 12/11/24 Patient will complete functional transfers with least restrictive device with modified independencein order to prepare for ambulation. Start: 12/04/24 Expected End: 12/11/24 Therapy Time Individual Co-Treatment Co-Evaluation Time In 1030 Time Out 1042 Minutes 12 Tiarra Soria PT Patient's Physical Therapy Plan of Care supervision is transferred to a [facility] Therapy Services Physical Therapist. Goals and/or treatment plan was established in collaboration with patient/family/other representatives. * Elkin Brewster - 12/04/2024 10:30 AM EDT Images from the original note were not included. OCCUPATIONAL THERAPY [facility] Initial Evaluation Name/MRN: Hanna Nelson ([id number]) Evaluation Date: 12/04/2024 Date of : 1940 Admission Date: 12/02/2024 9:17 PM Age: 84 y.o. Room/Bed: [facility] B Discharge Recommendation: Home with Home health OT Equipment Needed: No Assessment IMPRESSION: Pt seen on 12/04 for confusion and ulceration of R foot. Pt previously independent in all functional UB/LB ADL tasks and functional transfers/mobility using rollator as needed. Pt currently CGA/Min A for LB ADLS, CGA for UB ADLS, and CGA for transfers/functional mobility with FWW. Pt is c urrently limited by instability, weakness, and fatigue. Pt would benefit from continued skilled OT services at this time to address deficits provided. Recommend plan of discharge to [facility] OT. Admitting Diagnosis: Confusion and ulceration of R foot Performance Deficits /Impairments: Decreased Functional Mobility, Decreased ADL status, Decreased Strength, Decreased Endurance, Decreased Balance, and Decreased High Level IADLs Prognosis: Good Decision Making: Medium Complexity Subjective Pt pleasant and agreeable to therapy services. Services approved by her RN, brandy for therapy. Pain: Pt denies any current pain. 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 Fall Risk: Proctor Fall Risk Score: 85 (Low Risk) Proctor Fall Risk Score: 85 (High Risk) Precautions/Restrictions: Braces or Orthoses: Has off loading boot while in bed Family/Caregiver Present: Daughter came late in session Overall Cognitive Status: Exceptions - Safety judgement: decreased awareness of need for assistance and decreased awareness of need for safety Overall Orientation Status: Oriented x4 Social/Functional History Patient admitted from home. Lives With: Alone Type of Home: single family home Home Layout: Single Level Home Home Access: Stairs to Enter without Rails (# of stairs: 1) Bathroom Shower/Tub: Washes at sink/bed Washes at sink but has walk in shower with chair Toilet: Standard and Grab Bars Home Equipment: rollator Homemaking Responsibilities: Independent Receives Help From: None Active Bindery Manager: Yes Prior Level of Function Prior Level of ADL Function: Independent Prior Level of Mobility: Independent; Device: Rollator as needed Prior Level of Transfers: Independent Objective ADLs LE Dressing: Contact Guard, Min Assist Toileting: Min Assist Pt completed LB dressing while sitting EOB. Pt demonstrated ability to thread/manage BLE through hospital pants and manage up to knees while sitting EOB with no physical assist. Pt however required min A to manage pants over waist on R hip while pt utilized FWW for stability. Pt denied any dizziness and displayed no LOB during dressing task. Pt educated on good hand placement, BLE management, and device management prior to completing toileting task. Pt required Min A assist for clothing management (pants over hips) and no assist for per-care during toileting tasks. Pt denied any dizziness or LOB while completing toileting task. Bed Mobility Supine to sit: SBA Sit to supine: SBA Pt laying supine in bed with HOB elevated upon arrival. Pt educated on proper hand placement, BLE management, and device management prior to getting OOB. Pt required SBA overall for bed mobility. Pt required no physical assist to manage BLE and trunk to EOB/back in bed. Pt demonstrated good static sitting balance at EOB and denies any dizziness from positional changes at this time. Pt laying supine in bed at end of session. Transfers/Mobility Sit to stand: Contact Guard Stand to sit: Contact Guard Toilet: Contact Guard Functional mobility: Contact Guard Increased time overall to complete OOB activity. Pt required CGA overall for all sit < > stand transfers from EOB and toilet using FWW. Pt demonstrated good teach back of hand reach back and device/BLE management when standing from seated surface. Pt utilized grab bars to assist with toilet transfer. Pt denied any dizziness and displayed no LOB during functional transfers. Pt completed functional mobility from EO Bto bathroom/hallway using FWW with CGA overall. Pt did have increased noted offloading through BUE when using FWW. Pt demonstrated good safety awareness and device management when negotiating the environment. Pt displayed no signs of buckling or LOB when completing functional mobility at this time. Pt completed functional mobility at a slow and controlledpace. Device(s) used: Front wheeled walker Vision: wears glasses for reading and and are NOT being used during the eval Hearing: normal AM-PAC AM-PAC Inpatient Daily Activity Raw Score: 20 ADL Inpatient CMS G-Code Modifier: CJ Plan Pt would benefit from skilled acute OT services to address Strengthening, Balance Training, Self-Care/ADL Training, Functional Mobility Training, Endurance Training, and Equipment Evaluation/Education. Frequency: 7 visits during current hospital admission or until additional recommendations are made Barriers: Impaired balance, Lower extremity weakness, Decreased endurance, and Limited safety awareness Safety/Education Safety Safety Devices in place: All fall risk precautions in place, call light within reach, left in bed, bed alarm in place, gait belt, patient at risk for falls, and nurse notified Restraints: No Education Education Given To: patient and daughter Education Provided: OT Role, Plan of Care, ADL Adaptive Strategies, Transfer Training, Energy Conservation, IADL Safety, Equipment, Fall Prevention Education, and Benefits of Increasing Activity Education Method: Verbal, Demonstration, and Teach Back Barriers to Learning: None Education Outcome: Verbalized Understanding and Demonstrated Understanding Goals Patient Stated Goal: To go home Encounter Problems Encounter Problems (Active) Balance Patient will maintain dynamic standing balance for 4 minutes with modified independence in order todemonstrate decreased risk of falling. Start: 12/04/24 Expected End: 12/11/24 Dressing Upper Extremities Patient will complete upper body dressing with mod I Start: 12/04/24 Expected End: 12/11/24 Dressings Lower Extremities Patient will dress lower body with mod I Start: 12/04/24 Expected End: 12/11/24 Mobility Patient will demonstrate functional ambulation using FWW and mod I Start: 12/04/24 Expected End: 12/11/24 Toileting Patient will complete toileting tasks at standard toilet with modified independence. Start: 12/04/24 Expected End: 12/11/24 Transfers Patient will complete functional transfer with FWW with modified independence in order to prepare for ambulation. Start: 12/04/24 Expected End: 12/11/24 Patient will perform bed mobility with modified independence in order to improve independence and prepare for out of bed mobility. Start: 12/04/24 Expected End: 12/11/24 Therapy Time Individual Co-Treatment Co-Evaluation Time In 0857 Time Out 0918 Minutes 21 Elkin Brewster S/YORDY Patient's Occupational Therapy Plan of Care supervision is transferred to a [facility] Therapy Services Occupational Therapist. Goals and/or treatment plan was established in collaboration with patient/family/other representatives. Cosigned by Nicholas Blair OT at 12/04/2024 2:42 PM EDT Associated attestation - Nicholas Blair OT - 12/04/2024 2:42 PM EDT I certify that I was present during the entire session and guided the care given by the Student Occupational Therapist. Cosign: * Day Cardenas APRN - [place] - 12/04/2024 10:13 AM EDT [facility] Geriatric Medicine Inpatient Consult Service Admission Date: 12/02/2024 Assessment Principal Problem: Confusion Plan Acute Metabolic Encephalopathy --Etiology likely acute illness, hospital environment --Continue to treat underlying etiologies --Encourage PO intake, time up in chair, family visits, supervised ambulation, and sleep hygiene --If agitated, assess for and consider treating for pain --QTc= 493 ms --No antipsychotic unless patient is danger to self/others/treatment --Continue PRN melatonin at HS --Monitor for constipation/urinary retention - last BM 12/03 --Possible medication contributions: missing home medications --12/04: Improving. Continue plan. Cognitive Impairment --Followed by [facility]. Concern for Alzheimer's Dementia. --Lives alone, family provides assistance --Uncontrolled DM and episodes of hyperglycemia likely impacting cognition also. (A1C did improve from 12.2 to 9.0) --Recommend avoiding anticholinergic medications. Consider stopping Oxybutynin outpatient. --12/04: Stable. Follow up with [facility] - next appointment 01/07. Debility --contributing factors include DM, Neuropathy --uses rollator at times at baseline --PT and OT --Anticipate discharge home with [facility] --Vit D level 18 in Sep 2024 - start daily Vit D. --12/04: Stable. Continue plan. Neuropathy --continue Gabapentin 300mg BID --12/04: Stable, continue plan. Follow-up: will follow with you Subjective Chief Complaint: Ready to return home Geriatrics consulted for "suspect early Dementia" HPI- The patient is known to me. 84 y.o. year-old female with PMH of atrial fibrillation, DM, HLD, HTN, Hypothyroidism, Neuropathy presented to [facility] on 12/02/24 with complaints of confusion. Admitted for UTI and uncontrolled blood sugars. Urine Culture - >100,000 Klebsiella species Interval History: Remains on general medical/surgical floor . -Patient reports she is ready to return home. She is not sure why she is here, "I guess my family thought I was depressed?". Slept well, eating well. No complaints. -Nursing reports forgetful. No other concerns. Seen by PT. SBA assist. Ambulated 75 ft with FWW. Recommending home with home PT. Review of Systems Constitutional: Negative for fatigue. Respiratory: Negative for cough and shortness of breath. Gastrointestinal: Negative for abdominal pain and constipation. Genitourinary: Negative for difficulty urinating. Musculoskeletal: Negative for arthralgias. Neurological: Negative for dizziness and weakness. Psychiatric/Behavioral: Positive for confusion. Negative for dysphoric mood and sleep disturbance. The patient is not nervous/anxious. Objective BP (!) 157/103 (BP Location: Left arm, Patient Position: Lying) Pulse 90 Temp 36.2 C (97.1 F) (Temporal) Resp 18 Ht 5' 10" (1.778 m) Wt 202 lb 4.8 oz (91.8 kg) SpO2 96% BMI 29.03 kg/m Intake/Output Summary (Last 24 hours) at 12/04/2024 1013 Last data filed at 12/03/2024 203 Gross per 24 hour Intake 500 ml Output 725 ml Net -225 ml Wt Readings from Last 3 Encounters: 12/03/24 202 lb 4.8 oz (91.8 kg) 10/15/24 199 lb 6.4 oz (90.4 kg) 09/17/24 200 lb (90.7 kg) Current Facility-Administered Medications: acetaminophen (Tylenol) tablet 650 mg, 650 mg, Oral, q6h PRN OR acetaminophen (Tylenol) suppository 650 mg, 650 mg, Rectal, q6h PRN, Karolina Cooper MD apixaban (Eliquis) tablet 5 mg, 5 mg, Oral, BID, Karolina Cooper MD, 5 mg at 12/04/24 0847 atenolol (Tenormin) tablet 50 mg, 50 mg, Oral, BID, Karolina Cooper MD, 50 mg at 12/04/2447 atorvastatin (Lipitor) tablet 40 mg, 40 mg, Oral, Daily, Karolina Cooper MD, 40 mg at 12/04/24 08 cefTRIAXone (Rocephin) 1,000 mg in sodium chloride 0.9 % 50 mL IVPB Mini-Bag Plus, 1,000 mg, IntraVENous, q24h, Karolina Cooper MD, Stopped at 12/03/242040 dextrose 5 % infusion, 100 mL/hr, IntraVENous, PRN, Karolina Cooper MD dextrose 50 % solution 12.5 g, 12.5 g, IntraVENous, PRN, Karolina Cooper MD fenofibrate (Triglide) tablet 160 mg, 160 mg, Oral, Daily, Karolina Cooper MD, 160 mg at 12/04/24 0848 gabapentin (Neurontin) capsule 300 mg, 300 mg, Oral, BID, Karolina Cooper MD, 300 mg at 12/04/24 0847 glucagon (human recombinant) injection 1 mg, 1 mg, IntraMUSCular, PRN, Karolina Cooper MD glucose oral gel 15 g, 15 g, Oral, PRN, Karolina Cooper MD insulin glargine (Lantus) injection 26 Units, 26 Units, SubCUTAneous, Nightly, Ashleigh Ross APRN - KYREE Insulin Lispro (Humalog) injection 0-6 Units, 0-6 Units, SubCUTAneous, TID WC, ALEJANDRINA Cat CNP, 4 Units at 12/04/24 0847 insulin lispro (HumaLOG) pen injection 8 Units, 8 Units, SubCUTAneous, TID WC, ALEJANDRINA Cat CNP, 8 Units at 12/04/24 0848 levothyroxine (Synthroid, Levoxyl) tablet 112 mcg, 112 mcg, Oral, qAM AC, Karolina Cooper MD, 112 mcg at 12/04/24 0631 linaGLIPtin (Tradjenta) tablet 5 mg, 5 mg, Oral, Daily, Shane Rodriguez MD, 5 mg at 12/04/24 0847 melatonin tablet 3 mg, 3 mg, Oral, Nightly PRN, Day Cardenas APRN - NUCLEAR PLANT INSTRUMENT TECHNICIAN ondansetron ODT (Zofran-ODT) disintegrating tablet 4 mg, 4 mg, Oral, q8h PRN OR ondansetron (Zofran) injection 4 mg, 4 mg, IntraVENous, q6h PRN, Karolina Cooper MD polyethylene glycol (PEG) 3350 (Miralax) packet 17 g, 17 g, Oral, Daily PRN, Karolina Cooper MD Physical Exam Vitals reviewed. Constitutional: General: She is not in acute distress. Appearance: Normal appearance. HENT: Head: Normocephalic and atraumatic. Cardiovascular: Rate and Rhythm: Normal rate and regular rhythm. Pulmonary: Effort: Pulmonary effort is normal. No respiratory distress. Breath sounds: Normal breath sounds. Abdominal: General: Bowel sounds are normal. There is no distension. Palpations: Abdomen is soft. Tenderness: There is no abdominal tenderness. Musculoskeletal: Right lower leg: No edema. Left lower leg: No edema. Neurological: Mental Status: She is alert. Comments: Looks at board for date Psychiatric: Attention and Perception: Attention normal. Mood and Affect: Mood normal. Cognition and Memory: Cognition is impaired. Memory is impaired. Labs and Imaging: Recent Results (from the past 24 hours) POCT glucose meter Collection Time: 12/03/24 11:23 AM Result Value Ref Range Glucose 220 (H) 70 - 100 mg/dL POCT glucose meter Collection Time: 12/03/24 4:43 PM Result Value Ref Range Glucose 303 (H) 70 - 100 mg/dL POCT glucose meter Collection Time: 12/03/24 9:17 PM Result Value Ref Range Glucose 316 (H) 70 - 100 mg/dL CBC Collection Time: 12/04/24 3:06 AM Result Value Ref Range Auto WBC 9.7 3.6 - 10.7 10*3/uL RBC 4.15 3.80 - 5.20 10*6/uL Hemoglobin 12.4 11.7 - 16.0 g/dL Hematocrit 38.4 35.0 - 47.0 % MCV 92.5 77.0 - 99.0 fL MCH 29.9 26.0 - 34.0 pg MCHC 32.3 30.5 - 36.0 % RDW 13.9 11.5 - 15.0 % Platelets 303 140 - 440 10*3/uL MPV 10.4 9.0 - 12.7 fL Comprehensive metabolic panel Collection Time: 12/04/24 3:06 AM Result Value Ref Range SODIUM 138 136 - 145 mmol/L POTASSIUM 4.5 3.5 - 5.1 mmol/L CHLORIDE 110 (H) 98 - 107 mmol/L CARBON DIOXIDE 19 (L) 23 - 31 mmol/L ANION GAP 9 3 - 13 mmol/L UREA NITROGEN 40 (H) 9 - 23 mg/dL CREATININE 1.28 (H) 0.57 - 1.11 mg/dL GLUCOSE 251 (H) 82 - 115 mg/dL CALCIUM 8.6 (L) 8.8 - 10.0 mg/dL AST (SGOT) 19 <34 U/L ALT 16 <30 U/L ALKALINE PHOSPHATASE 51 40 - 150 U/L ALBUMIN 3.1 (L) 3.4 - 4.8 g/dL BILIRUBIN, TOTAL 0.3 <1.2 mg/dL TOTAL PROTEIN 6.3 (L) 6.4 - 8.3 g/dL eGFR 41.1 (L) >60.0 mL/min/1.73m*2 POCT glucose meter Collection Time: 12/04/24 6:23 AM Result Value Ref Range Glucose 294 (H) 70 - 100 mg/dL Lab Results Component Value Date TSH 3.34 09/21/2024 Lab Results Component Value Date [id number] 332 09/21/2024 Lab Results Component Value Date VITD25 18 (L) 09/22/2024 Reviewed: allergies, previous encounters, active problem lists, medications, and labs * Liz Novoa, RD - 12/03/2024 10:11 AM EDT Nutrition Assessment Type and Reason for Visit: Initial, Positive Nutrition Screen, Wound Nutrition Recommendations/Plan: Modify diet to Adult diet Regular; 4 carb choices (60 gm/meal) per MNT protocol. +DFU- initiate Jamie BID per MNT protocol. Jamie provides 90 kcals, 14 g amino acids, and 300 mg Vitamin C per packet serving. Please document pt's PO intakes via flowsheet to accurately assess PO intake adequacy. Monitor intakes, weights, and labs weekly. RD will follow. Malnutrition Assessment: Malnutrition Status: At risk for malnutrition (Comment) (wounds) Context: Acute Illness Findings of the 6 clinical characteristics of malnutrition: Energy Intake: Unable to assess Weight Loss: No significant weight loss Body Fat Loss: Unable to assess Muscle Mass Loss: Unable to assess Fluid Accumulation: No significant fluid accumulation Maintenance Service Supervisor Strength: Not Performed Nutrition Assessment: Pt is an 84 y/o female admitted to [facility] for complaints of confusion. Pt reportedly has been having issues with her diabetes and having issues with UTIs. Pt was sound asleep during RD visit this AM. Spoke with pt's daughter who reported same concerns as admit symptoms. Daughter feels like pt was eating adequately prior to admission and denied any known unintended wt loss. No weight loss observed per wt history documentation. Bed scale weighed the pt at 90.8kg (199.76#). Pt has a right foot diabetic ulcer. Per daughter, meets with Dr. Alas with Podiatry for management. Pt has uncontrolled DMwith a Hgb A1c of 12.2%. Daughter stated that they have been trying to cut back on sugar and CHO asof late to manage her glucose better. Estimated Daily Nutrient Needs: Energy Requirements Based On: Kcal/kg Weight Used for Energy Requirements: [place] Weight for Energy Calculation (kg): 68 kg Total Energy Requirements (kcals/day): 7810-4758 kcals (25-30 kcals/kg) Weight Used for Protein Requirements: [place] Weight in Kg Used for Protein Requirements: 68 kg Estimated Total Protein (g/day): 68-82g (1-1.2g/kg) Estimated Daily Total Fluid (ml/day): 1700 ml/day or per MD Nutrition Related Findings: BUN 46, Cr 1.22, GFR 43.6, Glucose 266, Hgb 12.5, Hct 36.9, Hgb A1c 12.2%, Beta Hydroxy 7.7; Lipitor, Synthroid, Lantus Wound Type: Diabetic Ulcer (right foot) Current Nutrition Therapies: Adult diet Regular; 4 carb choices (60 gm/meal) Current Oral Intake Average Meal Intake: Unable to assess Average Supplements Intake: None Ordered Anthropometric Measures: Height: 177.8 cm (5' 10") Current Body Weight: 91.6 kg (202 lb) Weight Source: Bed Scale Admission Body Weight: 90.7 kg (200 lb) (stated) Usual Body Weight: 90.3 kg (199 lb) (10/15/24) % Weight Change (Calculated): 1.5 [place] Body Weight (lbs) (Calculated): 150 lbs [place] Body Weight (Kg) (Calculated): 68 kg % [place] Body Weight (Calculated): 134.7 % BMI (kg/m2) (Calculated): 29 Weight Adjustment For: No Adjustment BMI Categories: Overweight (BMI 25.0-29.9) Nutrition Diagnosis: Increased nutrient needs related to increase demand for energy/nutrients as evidenced by wounds Nutrition Interventions: Nutrition Education/Counseling: (Pt with AMS- assess mentation at follow up) Coordination of Nutrition Care: Continue to monitor while inpatient Plan of Care discussed with: Daughter Goals: Goals: PO intake 75% or greater, by next RD assessment, other (specify) Specify Other Goals: Labs will trend towards baseline; skin will show signs of healing Nutrition Monitoring and Evaluation: Behavioral-Environmental Outcomes: None Identified Food/Nutrient Intake Outcomes: Diet Advancement/Tolerance, Food and Nutrient Intake, Supplement Intake Physical Signs/Symptoms Outcomes: Biochemical Data, GI Status, Nausea or Vomiting, Fluid Status or Edema, Nutrition Focused Physical Findings, Skin, Weight Discharge Planning: Continue current diet, Continue Oral Nutrition Supplement Liz Novoa RD Contact: *[phone] or via Secure Chat documented in this [facility]04-25-2025 Plan of care note* Care Plan - Yanira Simmons RN - 12/04/2024 4:48 PM EDT Problem: Neurosensory - Adult Goal: Achieves stable or improved neurological status Outcome: Progressing Problem: Respiratory - Adult Goal: Achieves optimal ventilation and oxygenation Outcome: Progressing Problem: Cardiovascular - Adult Goal: Maintains optimal cardiac output and hemodynamic stability Outcome: Progressing [id number]* Discharge Instr - LAURA* Bella Meléndez RN - 12/04/2024 3:05 PM EDT Images from the original note were not included. Continuity of Care Form Patient Name: Hanna Nelson : 1940 Admit date: 12/02/2024 Discharge date: Code Status Order: Full Code Advance Directives: N Admitting Physician: Karolina Cooper MD PCP: Dorothy Medrano Discharging Nurse: Discharging Hospital Unit/Room#: B2-251/B2-251 B Discharging Unit Phone Number: Emergency Contact: Extended Emergency Contact Information Primary Emergency Contact: Hi Nelson Relation: Son Preferred language: Burmese Metal Bumper needed? No Secondary Emergency Contact: Melba [facility] Mobile Relation: Daughter Past Surgical History: Past Surgical History: Procedure Laterality Date BACK SURGERY CHOLECYSTECTOMY Immunization History: There is no immunization history on file for this patient. 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) Isolation/Infection: No active isolations No active infections Nurse Assessment: Last Vital Signs: BP 109/65 (BP Location: Left arm, Patient Position: Lying) Pulse 97 Temp (!) 35.9 C (96.7 F) (Temporal) Resp 18 Ht 1.778 m (5' 10") Wt 91.8 kg (202 lb 4.8 oz) SpO2 96% BMI 29.03 kg/m Last documented pain score (0-10 scale): Last Weight: Wt Readings from Last 1 Encounters: 12/03/24 91.8 kg (202 lb 4.8 oz) Mental Status: {LAURA Patient Mental Status:60622} IV Access: {LAURA IV Access:14476} Nursing Mobility/ADLs: Walking {RADHA ADL:26371::"Independent"} Transfer {RADHA ADL:66488::"Independent"} Bathing {RADHA ADL:76183::"Independent"} Dressing {RADHA ADL:40159::"Independent"} Toileting {RADHA ADL:44025::"Independent"} Feeding {RADHA ADL:20964::"Independent"} Toll Gate Tender {RADHA ADL:72545::"Independent"} Med Delivery {yes/no:18457} Wound Care Documentation and Therapy: Wound/Incision 09/18/24 Diabetic Ulcer Foot Right (Active) Site Assessment Unable to assess 12/03/24 193 Linda-Wound Assessment Red 12/03/24139 Wound Length (cm) 2 cm 12/03/24139 Wound Width (cm) 1.8 cm 12/03/24139 Wound Surface Area (cm^2) 3.6 cm^2 12/03/24 0140 Wound Depth (cm) 0.1 cm 12/03/24 014 Wound Volume (cm^3) 0.36 cm^3 12/03/24 0140 Wound Healing % -80 12/03/24 0140 Odor None 12/03/24 0140 Drainage Amount Small 12/03/24 0140 Treatments Site care 12/03/24 0140 Primary Dressing Xeroform;Dry dressing 12/03/24 0140 Dressing Status Clean, dry & intact 12/03/241929 Number of days: 76 Elimination: Continence: Bowel: {yes/no:84765} Bladder: {yes/no:99639} Urinary Catheter: {LAURA Urinary Catheter:46971} Colostomy/Ileostomy/Ileal Conduit: {YES / NO:} Date of Last BM: Intake/Output Summary (Last 24 hours) at 12/04/2024 1505 Last data filed at 12/03/20242037 Gross per 24 hour Intake 200 ml Output 400 ml Net -200 ml I/O last 3 completed shifts: In: 1790 (19.5 mL/kg) [P.O.:740; IV Piggyback:1050] Out: 1745 (19 mL/kg) [Urine:1745 (0.5 mL/kg/hr)] Weight: 91.8 kg Safety Concerns: {LAURA Safety Concerns:48501} Impairments/Disabilities: {LAURA Impairments/Disabilities:64522} Nutrition Therapy: Current Nutrition Therapy: {LAURA Diet List:96791} Routes of Feeding: {routes of feedin} Liquids: {liquid consistency:18746} Daily Fluid Restriction: {daily fluid restriction:41378} Last Modified Barium Swallow with Video (Video Swallowing Test): {done not done:13441} Treatments at the Time of Hospital Discharge: Respiratory Treatments: Oxygen Therapy: {Therapy; copd oxygen:14410} Ventilator: {LAURA Ventilator:15364} Rehab Therapies: {GEN THERAPY DISCIPLINE SCAL:0752393} Weight Bearing Status/Restrictions: {POD WEIGHT BEARIN} Other Medical Equipment (for information only, NOT a DME order): {Assistive Devices DME:81101} Other Treatments: Patient's personal belongings (please select all that are sent with patient): {LAURA Patient Belongings:05962} RN SIGNATURE: {E-signature:07623} CASE MANAGEMENT/SOCIAL WORK SECTION Inpatient Status Date: Discharging to Facility/ Agency Name: [facility] [phone] Dialysis Facility (if applicable) Name: Address: Dialysis Schedule: Phone: Fax: Web Page Developer/Regional Business Development Manager signature: {E-signature:21738} PHYSICIAN SECTION Name: Hanna Nelson Prognosis: {Rehab Prognosis:33337} Condition at Discharge: {Patient Condition:06006} Rehab Potential (if transferring to Rehab): {Rehab Prognosis:65387} Recommended Labs or Other Treatments After Discharge: The individual is being admitted to a nursing facility directly from an [facility] or a unit of a [facility] that is not operated by or licensed by [facility] under section 5119.14 or 5160-3-15.1 5 The individual requires the level of services provided by a nursing facility for the condition for which he or she was treated in the hospital and, Physician Certification: I certify the above information and transfer of Hanna Nelson is necessary for the continuing treatment of the diagnosis listed and that she requires {LAURA Level of Care:96693} for {greater less than:95648} 30 days. Update Admission H&P: {LAURA Changes in H&P:78329} PHYSICIAN SIGNATURE: {E-signature:67598} documented in this [facility]04-25-2025 Note* Home Care - Bella Meléndez RN - 12/04/2024 2:58 PM EDT Spoke to patient and son regarding home care services. They would like to resume services with [facility] when discharge. Referral sent in Care port. [id number]* Home Care - Bella Meléndez RN - 12/04/2024 2:58 PM EDT Spoke to patient and son regarding home care services. They would like to resume services with [facility] when discharge. Referral sent in Care port. [id number] NoteSpoke to patient and son regarding home care services. They would like to resume services with [facility] when discharge. Referral sent in Care port. [facility]04-25-2025 Note* Care Coordination - Amita Genao RN - 12/04/2024 2:55 PM EDT Care Management Progress Note Chart reviewed. PT/OT saw and are recommending [facility] PT/OT at [place] [facility] liaison secure chatted to follow up. Length of Stay (Days): 1 GMLOS: 2.8 [id number] Note* Care Coordination - Amita Genao RN - 12/04/2024 2:55 PM EDT Care Management Progress Note Chart reviewed. PT/OT saw and are recommending [facility] PT/OT at [place] [facility] liaison secure chatted to follow up. Length of Stay (Days): 1 GMLOS: 2.8 [id number] NoteCare Management Progress Note Chart reviewed. PT/OT saw and are recommending [facility] PT/OT at [place] [facility] liaison secure chatted to follow up. Length of Stay (Days): 1 GMLOS: 2.8[facility]04-25-2025 Consult note* Yohannes Britton MD - 12/04/2024 1:06 PM EDTAssociated Order(s): IP CONSULT TO CARDIOLOGY Images from the original note were not included. [facility] [address] [facility] [place] [address] Dept: [phone] This is an 84-year-old woman seen for a pause. Her history includes Paroxysmal atrial fibrillation. I saw a reference to this from a note from [facility], where she used to live until May of this year when she moved in [place] to be closer to her family. She was admitted for delirium and it appears to be related to another urinary tract infection. She feels normal today. She has no history of syncope, palpitations, chest pain, or dyspnea. She says that her atrial fibrillation has always been asymptomatic. She currently feels well and would like to go home. I spoke with her son and also (Hi) who said that she generally does quite well. She livesalone. She was asymptomatic during the pause in her rhythm. Outpatient medications include apixaban 5 mg twice a day, atenolol 50 mg twice a day, atorvastatin 40 mg daily, fenofibrate 160 mg daily, gabapentin 300 mg twice a day, insulin, levothyroxine 112 mcgdaily, metformin 500 mg twice a day, oxybutynin 10 mg daily and Tradjenta 5 mg daily. She is a former smoker, quitting in 1964. 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 She does not use alcohol. She lives alone but has multiple family members near her home in [place]. She is not being followed by cardiology. Review of systems she has had no bleeding related to the apixaban other than bruising. On physical exam she appears well. Her heart rate now is in the 60s, regular, pulse was as high as 134 earlier when she was in atrial fibrillation. Her blood pressure is 109/65, oxygen saturation 96%on room air. Her heart sounds are normal. She has no significant peripheral edema. She is breathingquietly while lying flat. Her extremities are warm. My interpretation of her initial EKG showed atrial fibrillation but is otherwise unremarkable. A complete blood count is normal, creatinine 1.2, GFR 41, potassium 4.5. Urinalysis is consistent with a urinary tract infection. Head CT showed nothing acute. Renal ultrasound showed no abnormalities. In review of telemetry what she has is a conversion pause of about 6 seconds to sinus rhythm. She is currently in sinus rhythm. A TSH 2 months ago was normal at 3.34. Medical decision making The patient's atrial fibrillation may have been provoked by the urinary tract infection. This occurred in the setting of known paroxysmal atrial fibrillation and the patient on apixaban. She is on the appropriate dose of 5 mg twice a day based on her weight (92 kg) and renal function (creatinine 1.2). A conversion pause is very common. Often, there is a pause when patients convert from atrial fibrillation to sinus rhythm. It was asymptomatic. Recommend Continue her current therapy. Atenolol is somewhat an old-fashioned use of beta- blockers. However, she has tolerated it and is asymptomatic so I would continue it at the same dose. It may be some point be changed or reducing the dose. Atenolol is primarily renally excreted. Continue apixaban 5 mg twice a day. I will arrange follow-up. She will need to see a asphalt paving machine operator periodically for her history of atrial fibrillation and anticoagulation use. Any further cardiac workup can be done as an outpatient. [facility] [employer] Phone: [phone] 104-560304-25-2025 Consult note* Yohannes Britton MD - 12/04/2024 1:06 PM EDTAssociated Order(s): IP CONSULT TO CARDIOLOGY Images from the original note were not included. [facility] [address]U [address] [place] [id number] Dept: [phone] This is an 84-year-old woman seen for a pause. Her history includes Paroxysmal atrial fibrillation. I saw a reference to this from a note from [facility], where she used to live until May of this year when she moved in [place] to be closer to her family. She was admitted for delirium and it appears to be related to another urinary tract infection. She feels normal today. She has no history of syncope, palpitations, chest pain, or dyspnea. She says that her atrial fibrillation has always been asymptomatic. She currently feels well and would like to go home. I spoke with her son and also (Hi) who said that she generally does quite well. She livesalone. She was asymptomatic during the pause in her rhythm. Outpatient medications include apixaban 5 mg twice a day, atenolol 50 mg twice a day, atorvastatin 40 mg daily, fenofibrate 160 mg daily, gabapentin 300 mg twice a day, insulin, levothyroxine 112 mcgdaily, metformin 500 mg twice a day, oxybutynin 10 mg daily and Tradjenta 5 mg daily. She is a former smoker, quitting in 1964. 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 She does not use alcohol. She lives alone but has multiple family members near her home in [place]. She is not being followed by cardiology. Review of systems she has had no bleeding related to the apixaban other than bruising. On physical exam she appears well. Her heart rate now is in the 60s, regular, pulse was as high as 134 earlier when she was in atrial fibrillation. Her blood pressure is 109/65, oxygen saturation 96%on room air. Her heart sounds are normal. She has no significant peripheral edema. She is breathingquietly while lying flat. Her extremities are warm. My interpretation of her initial EKG showed atrial fibrillation but is otherwise unremarkable. A complete blood count is normal, creatinine 1.2, GFR 41, potassium 4.5. Urinalysis is consistent with a urinary tract infection. Head CT showed nothing acute. Renal ultrasound showed no abnormalities. In review of telemetry what she has is a conversion pause of about 6 seconds to sinus rhythm. She is currently in sinus rhythm. A TSH 2 months ago was normal at 3.34. Medical decision making The patient's atrial fibrillation may have been provoked by the urinary tract infection. This occurred in the setting of known paroxysmal atrial fibrillation and the patient on apixaban. She is on the appropriate dose of 5 mg twice a day based on her weight (92 kg) and renal function (creatinine 1.2). A conversion pause is very common. Often, there is a pause when patients convert from atrial fibrillation to sinus rhythm. It was asymptomatic. Recommend Continue her current therapy. Atenolol is somewhat an old-fashioned use of beta- blockers. However, she has tolerated it and is asymptomatic so I would continue it at the same dose. It may be some point be changed or reducing the dose. Atenolol is primarily renally excreted. Continue apixaban 5 mg twice a day. I will arrange follow-up. She will need to see a asphalt paving machine operator periodically for her history of atrial fibrillation and anticoagulation use. Any further cardiac workup can be done as an outpatient. RBC * Ashleigh Ross, 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 - NUCLEAR PLANT INSTRUMENT TECHNICIAN - 12/03/2024 2:02 PM EDTAssociated Order(s): IP CONSULT TO ENDOCRINOLOGY Department of Internal Medicine Division of Endocrinology, Diabetes, & Metabolism Endocrinology Note Patient Name: Hanna Nelson : 1940 AGE: 84 y.o. Room/Bed: [facility] B Admission Date: 12/02/2024 Visit Date: 12/03/2024 Reason for Endocrine Consult: Type 2 diabetes mellitus with hyperglycemia on insulin Provider/Team Requesting Consult: Shane Rodriguez PCP: Dorothy Rao Tactical Air Control Party Manager: No ASSESSMENT: Type 2 diabetes with hyperglycemia Urinary tract infection A-fib with RVR Elevated creatinine Wound to right foot PLAN: Increase Lantus 26 units Continue Humalog to 16 units TID with meals Will hold tradjenta while inpatient ICU goal <180 GMF goal <150 POCT BG ACHS Hypoglycemia management per protocol Carb controlled diet Most recent TSH-3.34-09/21/ Continue levothyroxine 112 mcg daily ANTICIPATED ENDOCRINE HOME GOING RECOMMENDATIONS: Optimized for Discharge from Endocrine standpoint: Yes Home Going Endocrine Rx Recommendations-- Metformin 500 mg BID with meals Start Tradjenta 5 mg daily Start Lantus - Current dose on day of discharge. Outpt Follow Up-- As previously scheduled SUBJECTIVE/HPI: CHIEF COMPLAINT: Chief Complaint Patient presents with Altered Mental Status 84 y.o. female who presents to the emergency department complaining of confusion. History aided by family. Family explained that patient had moved to the ER in the last few months. She has been having issues with her diabetes and also has had recurrent urinary tract infections. Today they tried to call the patient and her phone was not picking up. They suspected that she had unplugs. They also were not able to get readings off of her continuous glucose monitor which they typically are able to do from remote site. Because of these abnormalities they went to check on the patient suspecting thatshe may be confused and possibly dealing with urinary tract infection. They went to patient's home and she was confused Type of DM: 2 Onset of DM: age 49 - [id number] Home DM Medication Regimen: Tradjenta 5 mg daily, metformin 1 tablet twice a day Tresiba 30 units at night DM control (last A1c/glucose data): Lab Results Component Value Date HGBA1C 9.0 (H) 12/02/2024 Family is at bedside son is primary caregiver but also daughter also assists at times Family is very pleased with her blood sugars since she was discharged from the hospital in September Her wound to her foot has been healing and is much improved daily relate this to her controlled blood sugars She is wearing a javier 3 at home she is using her phone and her phone is in her daughter's car so cannot be reviewed at this time She has not had any lows at home Family asking many appropriate questions as far as signs and symptoms of urinary tract infection. How it relates to her blood sugars and her blood pressure TODAY- BGLs as below Running slightly higher than her usual Has been eating her meals without any problems Denies pain or nausea Glucose Date/Time Value Ref Range Status 12/03/2024 11:23 AM 220 (H) 70 - 100 mg/dL Final 12/03/2024 07:09 AM 126 (H) 70 - 100 mg/dL Final 12/03/2024 03:36 AM 220 (H) 70 - 100 mg/dL Final 09/24/2024 11:09 AM 241 (H) 70 - 100 mg/dL Final 09/24/2024 07:38 AM 235 (H) 70 - 100 mg/dL Final 09/23/2024 08:00 PM 229 (H) 70 - 100 mg/dL Final Review of Systems Constitutional: Negative for activity change, appetite change and unexpected weight change. Gastrointestinal: Negative for diarrhea, nausea and vomiting. Endocrine: Negative for polydipsia, polyphagia and polyuria. Genitourinary: Negative for dysuria. Skin: Negative for color change, pallor and wound. ROS negative except for those mentioned in HPI. OBJECTIVE: Vitals: 12/03/24 0509 12/03/24 0734 12/03/24 0945 12/03/24 1128 BP: 109/69 115/72 128/74 BP Location: Left arm Patient Position: Pulse: 91 75 77 Resp: 17 18 Temp: 36.5 C (97.7 F) (!) 35.8 C (96.5 F) TempSrc: Temporal Temporal SpO2: 96% 98% 95% Weight: Height: 5' 10" (1.778 m) Physical Exam Vitals reviewed. Constitutional: General: She is not in acute distress. Appearance: Normal appearance. She is obese. She is not ill-appearing. HENT: Head: Normocephalic and atraumatic. Left Ear: External ear normal. Nose: Nose normal. Mouth/Throat: Mouth: Mucous membranes are moist. Cardiovascular: Rate and Rhythm: Normal rate and regular rhythm. Pulmonary: Effort: Pulmonary effort is normal. No respiratory distress. Musculoskeletal: General: Normal range of motion. Skin: General: Skin is warm and dry. Neurological: General: No focal deficit present. Mental Status: She is alert. Psychiatric: Mood and Affect: Mood normal. Behavior: Behavior normal. 24 hour intake/output: Intake/Output Summary (Last 24 hours) at 12/03/2024 1403 Last data filed at 12/03/2024 0503 Gross per 24 hour Intake 1290 ml Output 1020 ml Net 270 ml Diet: Adult diet Regular; 5 carb choices (75 gm/meal) Medications (as per EMR): HomeMeds: Current Outpatient Medications Medication Instructions Alcohol Swabs (Alcohol Prep) 70 % pads 1 Pad, Does not apply, 3 times daily apixaban (ELIQUIS) 5 mg, 2 times daily atenolol (TENORMIN) 50 mg, 2 times daily atorvastatin (LIPITOR) 40 mg, Daily Blood Glucose Monitoring Suppl (Blood Glucose Monitor System) w/Device kit Check glucose 3x daily fenofibrate (TRIGLIDE) 160 mg, Daily gabapentin (NEURONTIN) 300 mg, 2 times daily glucose blood test strip Use as instructed insulin degludec (TRESIBA FLEXTOUCH) 30 Units, SubCUTAneous, Nightly Lancets Check glucose x3 daily levothyroxine (Tirosint) 112 MCG capsule Daily before breakfast metFORMIN (GLUCOPHAGE) 500 mg, Oral, 2 times daily with meals oxybutynin (DITROPAN) 10 mg, Daily Tradjenta 5 mg, Oral, Daily Scheduled Meds:apixaban, 5 mg, Oral, BID atenolol, 50 mg, Oral, BID atorvastatin, 40 mg, Oral, Daily cefTRIAXone, 1,000 mg, IntraVENous, q24h fenofibrate, 160 mg, Oral, Daily gabapentin, 300 mg, Oral, BID insulin glargine, 27 Units, SubCUTAneous, Nightly insulin lispro, 0-12 Units, SubCUTAneous, TID WC And insulin lispro, 0-12 Units, SubCUTAneous, Nightly levothyroxine, 112 mcg, Oral, qAM AC linaGLIPtin, 5 mg, Oral, Daily Continuous Infusions: PRN Meds:PRN medications: acetaminophen OR acetaminophen, dextrose, dextrose, glucagon (rDNA), glucose, ondansetron ODT OR ondansetron, polyethylene glycol (PEG) 3350 Diagnostic Workup: I reviewed pertinent Laboratory results, Radiographic results, and Other Clinical Notes at the timeof today's encounter. Labs: No components found for: "LABA1C" No components found for: "EAG" Lab Results Component Value Date NA 143 12/02/2024 K 4.6 12/02/2024 CL 112 (H) 12/02/2024 CO2 18 (L) 12/02/2024 BUN 46 (H) 12/02/2024 CREATININE 1.22 (H) 12/02/2024 GLUCOSE 266 (H) 12/02/2024 CALCIUM 9.8 12/02/2024 No results found for: "CHLPL", "CHOL" No results found for: "TRIG" No results found for: "HDL" No results found for: "LDLCALC" No results found for: "VLDL" No results found for: "CHOLHDLRATIO" No results found for: "[id number]" Lab Results Component Value Date TSH 3.34 09/21/2024 Radiology reportsas per the Radiologist Radiology: US renal complete Result Date: 12/03/2024 Patient Name: HANNA NELSON : 1940 [facility]#: [id number] Exam Date/Time: 12/03/2024 12:02 Procedure: US RENAL COMPLETE Ordering Provider: RODRIGUEZ MAHAVEER Reason For Exam: UTI, recurrent/complicated (Female) RENAL ULTRASOUND CLINICAL INDICATION: Urinary tract infection, recurrent/complicated (Female) Sonographic images of the bilateral kidneys andbladder were obtained. COMPARISON: None. FINDINGS: RIGHT KIDNEY: Size: 12.5 cm Cortex: Normal cortical thickness and echogenicity. Hydronephrosis: None Calculi: None Cysts: 3.9 cm simple upper pole cyst is benign and of no clinical significance. LEFT KIDNEY: Size: 10.3 cm Cortex: Normal cortical thickness and echogenicity. Hydronephrosis: None Calculi: None Cysts: 1.4 cm cyst in the interpolar cortex which is simple and does not require follow-up BLADDER: The bladder is grossly unremarkable aside from minimal debris in the bladder lumen. Other: No mass or fluid collection is seen adjacent to the kidneys. No hydronephrosis or nephrolithiasis. Minimal intraluminal debris in the urinary bladder. Report Dictated on Electronically Signed By: Patel Ortiz MD Electronically Signed Date/Time: 12/03/2024 12:37 PM EDT POCT glucose meter Result Date: 12/03/2024 Performed by: [facility], [address] [place] [id number] CLIA ID: [id number] ECG 12 lead Atrial fibrillation Borderline left axis deviation Borderline T wave abnormalities Borderline prolonged QT interval No previous ECG available for comparison Electronically Signed On 12-03-2024 10:10:35 EDT by Vero Byrd POCT glucose meter Result Date: 12/03/2024 Performed by: [facility], [address] [place] [id number] CLIA ID: [id number] POCT glucose meter Result Date: 12/03/2024 Performed by: [facility], [address] [facility] [id number] CLIA ID: [id number] CT head wo IV contrast Result Date: 12/02/2024 Patient Name: HANNA NELSON : 1940 Exam Date/Time: 12/02/2024 22:30 Procedure: CT HEAD WO IV CONTRAST Ordering Provider: MARIE DUSTIN Reason For Exam: confusion CT HEAD: Clinical Indication: Confusion Imaging Technique: Multipleaxial 3mm CT images of the head were obtained from the skull base to the vertex. Coronal and sagittal reconstructs were rendered. Dose reduction was employed with automated exposure control. Comparison: none FINDINGS: There is no intracranial hemorrhage. There is global volume loss with mild small vessel ischemia. The calvarium is intact. The globes are symmetric. The nasal turbinates are edematou s which narrows the nasal passageway. The mastoid air cells are pneumatized. There is no fluid in the right or left middle ear. No acute intracranial process. Report Dictated on Electronically Signed By: Priscila Miramontes MD Electronically Signed Date/Time: 12/02/2024 10:44 PM EDT History/Other: Past Medical History: Past Medical History: Diagnosis Date Atrial fibrillation (HCC) Diabetes mellitus (HCC) Hyperlipidemia Hypertension Hypothyroidism Neuropathy Past Surgical History: Past Surgical History: Procedure Laterality Date BACK SURGERY CHOLECYSTECTOMY Allergy(ies): Allergies Allergen Reactions Tape Rash Family History: No family history on file. Social History: Social History Tobacco Use Smoking status: Former Current packs/day: 0.00 Types: Cigarettes Quit date: 1964 Years since quittin.3 Smokeless tobacco: Never Vaping Use Vaping status: Never Used Substance Use Topics Alcohol use: Not Currently Drug use: Never Portions of the information within this encounter were entered using an electronic dictation system. Best attempts were made to edit/proofread the information prior to note completion. Despite the review of information, some errors may remain. If there are questions related to the information contained within the note please contact the signing physician directly. I spent 75 minutes with the pt which involved coordination of care, medical evaluation, review of records, and/or counseling of the pt regarding his/her condition/disease state/prognosis on the date of this note. Cosigned by Demetrio Shahid MD at 12/04/2024 4:04 PM EDT * Day CardenasALEJANDRINA CNP - 12/03/2024 1:45 PM EDTAssociated Order(s): IP CONSULT TO GERIATRICS [facility] Geriatric Medicine Inpatient Consult Service Admission Date: 12/02/2024 Admission Status: INPATIENT Chief Complaint: confusion Reason for Appointment Geriatrics consulted for "suspect early Dementia" Assessment & Plan Principal Problem: Confusion Acute Metabolic Encephalopathy --confusion improving per family --Etiology likely acute illness, hospital environment --Encourage PO intake, time up in chair, family visits, supervised ambulation, and sleep hygiene --If agitated, assess for and consider treating for pain --QTc= 493 ms --No antipsychotic unless patient is danger to self/others/treatment --Start PRN melatonin at HS --Monitor for constipation/urinary retention - last BM 12/02 --Possible medication contributions: missing home medications Cognitive Impairment --Followed by [facility]. Concern for Alzheimer's Dementia. --Lives alone, family provides assistance --Uncontrolled DM and episodes of hyperglycemia likely impacting cognition also. (A1C improved from12.2 to 9.0) --Recommend avoiding anticholinergic medications. Consider stopping Oxybutynin outpatient. Debility --contributing factors include DM, Neuropathy --uses rollator at times at baseline --PT and OT evals pending Neuropathy --continue Gabapentin 300mg BID I spent total time of 70 minutes face to face with the patient and/or family discussing the diagnosis and importance of compliance with the treatment plan as well as documenting on the day of the visit. In addition, that total time includes the following: -Reviewing previous notes, -Reviewing labs, -Reviewing previous cognitive tests, -Obtaining and/or reviewing separately obtained history, -Ordering prescription medications, tests and procedures, -Communicating results to the patient/family/caregiver, -Counseling/educating the patient/family/caregiver, - Documenting clinical information in the patients electronic record, and - Performing a medically appropriate exam and/or evaluation Subjective: HPI 84 y.o. year-old female with PMH of atrial fibrillation, DM, HLD, HTN, Hypothyroidism, Neuropathy presented to [facility] on 12/02/24 with complaints of confusion. Admitted for possible UTI and uncontrolled blood sugars. Known to geriatrics seen during September hospital admission and then outpatient follow up at the [facility] with Dr. Wright on 10/15/24. Concern for mild to moderate stage Alzheimer's Dementia. MRI brain ordered. MoCA 06/10 (score may have been impacted by hyperglycemia). Recommend retesting at Family Summary Conference in December. Geriatrics ED screen: Do you (or your loved one) have problems with your memory that affect your (their) day to day activities or that you or your family notice most days?: No Do you (or loved one) live alone AND/OR Do you (they) need more help at home then you (they) have now or currently available?: No Have you (or loved one) been in the hospital in the last 3 months?: Yes Do you (or loved one) have trouble with your walking or balance? Or Have you (they) fallen recently?: Yes Do you (or loved one) take more than 5 medications or vitamins every day?: Yes When compared to others your (their) own age, are you (or loved one) in worse health?: No Total Score: 3 Nursing Delirium Screen (Nu-Desc): Nursing Delirium Symptom Checklist Total Score: 1 Conversation with patient: --She is not sure why she is in the hospital. She is hoping to go home soon. --Has no trouble with her medications including insulin. Does not miss doses. --Lives alone and her children frequently visit her. She feels she manages well at home. Conversation with caregiver: son Hi Nelson . -Since Sep hospitalization, she has been improving. -A1C improving. Diet improving. -Seeing wound care weekly. -Nursing visits 2 times a week, therapy visiting -has frequent UTIs and this causes decline -Manages meds well other than when she is ill. Advance Care Planning Healthcare Power of Manager Functional: Yes, son Hi, then daughter Financial Power of Manager Functional: Yes, son Hi, then daughter Living Will:Yes Code Status: Full Code Allergies Allergen Reactions Tape Rash Current Facility-Administered Medications: acetaminophen (Tylenol) tablet 650 mg, 650 mg, Oral, q6h PRN OR acetaminophen (Tylenol) suppository 650 mg, 650 mg, Rectal, q6h PRN, Karolina Cooper MD apixaban (Eliquis) tablet 5 mg, 5 mg, Oral, BID, Karolina Cooper MD, 5 mg at 12/03/24 0814 atenolol (Tenormin) tablet 50 mg, 50 mg, Oral, BID, Karolina Cooper MD, 50 mg at 12/03/24 0320 atorvastatin (Lipitor) tablet 40 mg, 40 mg, Oral, Daily, Karolina Cooper MD, 40 mg at 12/03/24 0814 cefTRIAXone (Rocephin) 1,000 mg in sodium chloride 0.9 % 50 mL IVPB Mini-Bag Plus, 1,000 mg, IntraVENous, q24h, Karolina Cooper MD dextrose 5 % infusion, 100 mL/hr, IntraVENous, PRN, Karolina Cooper MD dextrose 50 % solution 12.5 g, 12.5 g, IntraVENous, PRN, Karolina Cooper MD fenofibrate (Triglide) tablet 160 mg, 160 mg, Oral, Daily, Karolina Cooper MD, 160 mg at 12/03/24 0814 gabapentin (Neurontin) capsule 300 mg, 300 mg, Oral, BID, Karolina Cooper MD glucagon (human recombinant) injection 1 mg, 1 mg, IntraMUSCular, PRN, Karolina Cooper MD glucose oral gel 15 g, 15 g, Oral, PRN, Karolina Cooper MD insulin glargine (Lantus) injection 27 Units, 27 Units, SubCUTAneous, Nightly, Karolina Cooper MD, 27 Units at 12/03/24 0336 Insulin Lispro (Humalog) injection 0-12 Units, 0-12 Units, SubCUTAneous, TID WC, 4 Units at 12/03/24 1231 AND Insulin Lispro (Humalog) injection 0-12 Units, 0-12 Units, SubCUTAneous, Nightly, Shane Rodriguez MD levothyroxine (Synthroid, Levoxyl) tablet 112 mcg, 112 mcg, Oral, qAM AC, Karolina Cooper MD, 112 mcg at 12/03/24 0554 linaGLIPtin (Tradjenta) tablet 5 mg, 5 mg, Oral, Daily, Shane Rodriguez MD, 5 mg at 12/03/24 0916 ondansetron ODT (Zofran-ODT) disintegrating tablet 4 mg, 4 mg, Oral, q8h PRN OR ondansetron (Zofran) injection 4 mg, 4 mg, IntraVENous, q6h PRN, Karolina Cooper MD polyethylene glycol (PEG) 3350 (Miralax) packet 17 g, 17 g, Oral, Daily PRN, Karolina Cooper MD Past Medical History: Diagnosis Date Atrial fibrillation (HCC) Diabetes mellitus (HCC) Hyperlipidemia Hypertension Hypothyroidism Neuropathy Past Surgical History: Procedure Laterality Date BACK SURGERY CHOLECYSTECTOMY Social History Tobacco Use Smoking status: Former Current packs/day: 0.00 Types: Cigarettes Quit date: 1964 Years since quittin.3 Smokeless tobacco: Never Substance Use Topics Alcohol use: Not Currently Social History Social History Narrative Not on file Family History No family history on file. No family status information on file. Review of Systems Constitutional: Negative for fatigue. HENT: Negative for congestion. Respiratory: Negative for cough and shortness of breath. Gastrointestinal: Negative for abdominal pain and constipation. Genitourinary: Negative for difficulty urinating. Musculoskeletal: Negative for arthralgias. Neurological: Negative for dizziness and weakness. Psychiatric/Behavioral: Positive for confusion. Negative for dysphoric mood and sleep disturbance. The patient is not nervous/anxious. Functional Status Prior to Admission: (I: Independent, A: Assisted, D: Dependent) ADLs I A D Notes Bathing [x] [] [] Dressing [x] [] [] Toileting [x] [] [] Transfers [x] [] [] Feeding [x] [] [] Ambulation [x] [] [] Assistive devices: rolling walker IADLs I A D Telephone [] [x] [] Transportation [] [] [x] Shopping [] [x] [] Meal prep [] [x] [] Housework [] [x] [] Medications [] [x] [] Finances [] [x] [] Objective: BP 128/74 Pulse 77 Temp (!) 35.8 C (96.5 F) (Temporal) Resp 18 Ht 5' 10" (1.778 m) Wt 202lb 4.8 oz (91.8 kg) SpO2 95% BMI 29.03 kg/m Intake/Output Summary (Last 24 hours) at 12/03/2024 1345 Last data filed at 12/03/2024 0503 Gross per 24 hour Intake 1290 ml Output 1020 ml Net 270 ml Wt Readings from Last 3 Encounters: 12/03/24 202 lb 4.8 oz (91.8 kg) 10/15/24 199 lb 6.4 oz (90.4 kg) 09/17/24 200 lb (90.7 kg) Physical Exam Vitals reviewed. Constitutional: General: She is not in acute distress. Appearance: Normal appearance. HENT: Head: Normocephalic and atraumatic. Cardiovascular: Rate and Rhythm: Normal rate and regular rhythm. Pulmonary: Effort: Pulmonary effort is normal. No respiratory distress. Breath sounds: Normal breath sounds. Abdominal: General: Bowel sounds are normal. There is no distension. Palpations: Abdomen is soft. Tenderness: There is no abdominal tenderness. Musculoskeletal: Right lower leg: No edema. Left lower leg: No edema. Neurological: Mental Status: She is alert. Comments: States she does not keep track of dates Psychiatric: Attention and Perception: Attention normal. Mood and Affect: Mood normal. Cognition and Memory: Cognition is impaired. Memory is impaired. Labs and Imaging: Recent Results (from the past 24 hours) Beta Hydroxybutyrate Collection Time: 12/02/24 9:32 PM Result Value Ref Range BETA HYDROXYBUTYRATE 7.7 (H) <=2.8 mg/dL CBC auto differential Collection Time: 12/02/24 9:32 PM Result Value Ref Range Auto WBC 6.9 3.6 - 10.7 10*3/uL RBC 4.15 3.80 - 5.20 10*6/uL Hemoglobin 12.5 11.7 - 16.0 g/dL Hematocrit 36.9 35.0 - 47.0 % MCV 88.9 77.0 - 99.0 fL MCH 30.1 26.0 - 34.0 pg MCHC 33.9 30.5 - 36.0 % RDW 13.4 11.5 - 15.0 % Platelets 276 140 - 440 10*3/uL MPV 10.3 9.0 - 12.7 fL nRBC 0.0 0.0 - 2.0 /100 WBCs Neutrophils Relative 63.2 38.0 - 82.0 % Lymphocytes Relative 18.1 15.0 - 45.0 % Monocytes Relative 9.0 5.0 - 13.0 % Eosinophils Relative 7.1 (H) 0.0 - 6.0 % Basophils Relative 0.6 0.0 - 2.0 % Immature Grans % 2.0 0.0 - 2.0 % Neutrophils Absolute 4.4 1.8 - 7.5 10*3/uL Lymphocytes Absolute 1.3 1.0 - 4.3 10*3/uL Monocytes Absolute 0.6 0.0 - 0.9 10*3/uL Eosinophils Absolute 0.5 0.0 - 0.5 10*3/uL Basophils Absolute 0.0 0.0 - 0.2 10*3/uL Immature Grans Absolute 0.1 (H) <0.1 10*3/uL Comprehensive metabolic panel Collection Time: 12/02/24 9:32 PM Result Value Ref Range SODIUM 143 136 - 145 mmol/L POTASSIUM 4.6 3.5 - 5.1 mmol/L CHLORIDE 112 (H) 98 - 107 mmol/L CARBON DIOXIDE 18 (L) 23 - 31 mmol/L ANION GAP 13 3 - 13 mmol/L UREA NITROGEN 46 (H) 9 - 23 mg/dL CREATININE 1.22 (H) 0.57 - 1.11 mg/dL GLUCOSE 266 (H) 82 - 115 mg/dL CALCIUM 9.8 8.8 - 10.0 mg/dL AST (SGOT) 27 <34 U/L ALT 19 <30 U/L ALKALINE PHOSPHATASE 63 40 - 150 U/L ALBUMIN 3.9 3.4 - 4.8 g/dL BILIRUBIN, TOTAL 0.4 <1.2 mg/dL TOTAL PROTEIN 7.6 6.4 - 8.3 g/dL eGFR 43.6 (L) >60.0 mL/min/1.73m*2 Hemoglobin A1c Collection Time: 12/02/24 9:32 PM Result Value Ref Range HEMOGLOBIN A1C 9.0 (H) <5.7 %HbA1C ESTIMATED AVERAGE GLUCOSE 212 mg/dL Procalcitonin Test Collection Time: 12/02/24 9:32 PM Result Value Ref Range PROCALCITONIN 0.07 (H) <0.07 ng/mL C-reactive protein Collection Time: 12/02/24 9:32 PM Result Value Ref Range C REACTIVE PROTEIN 3.5 <5.0 mg/L Complete Urinalysis Collection Time: 12/02/24 10:01 PM Result Value Ref Range Color, Urine Light Yellow Lt. Yellow Clarity, Urine Clear Clear pH, Urine 5.5 5.0 - 8.0 pH Leukocytes, Urine 250 (A) Negative Baljit/uL Nitrite, Urine Negative Negative Protein, Urine Negative Negative mg/dL Glucose, Urine 1,000 (A) Normal (<70) mg/dL Bilirubin, Urine Negative Negative mg/dL Ketones, Urine Negative Negative mg/dL Urobilinogen, Urine Normal Normal (0-1) mg/dL Blood, Urine Negative Negative mg/dL Volume, Urine 12 mL RBC, Urine 0-2 0 - 2 /HPF WBC, Urine 11-25 (A) 0 - 5 /HPF Squamous Epithelial, Urine Negative 3 - 5 /HPF Bacteria, Urine Loaded (A) Negative /HPF WBC Clumps, Urine Few (A) Negative /HPF SPECIFIC GRAVITY OF URINE (NUMERIC) 1.009 1.005 - 1.030 POCT glucose meter Collection Time: 12/03/24 3:36 AM Result Value Ref Range Glucose 220 (H) 70 - 100 mg/dL ECG 12 lead Collection Time: 12/03/24 3:55 AM Result Value Ref Range Heart Rate 112 bpm QRSD Interval 88 ms QT Interval 361 ms QTC Interval 493 ms P [place] 0 degrees QRS [place] -21 degrees T Wave [place] 11 degrees [place] Interval 0 ms POCT glucose meter Collection Time: 12/03/24 7:09 AM Result Value Ref Range Glucose 126 (H) 70 - 100 mg/dL POCT glucose meter Collection Time: 12/03/24 11:23 AM Result Value Ref Range Glucose 220 (H) 70 - 100 mg/dL Lab Results Component Value Date TSH 3.34 09/21/2024 No components found for: "B12" No results found for: "VITD25" Reviewed: active problem list, medication list, allergies, social history, notes from last encounter, notes from last several encounters, lab results, imaging Follow-up: will follow with you ALEJANDRINA Esteban CNP 12/03/24 1:45 PM documented in this [facility]04-25-2025 Plan of care note* Care Plan - Dayna Jacques RN - 12/04/2024 12:38 AM EDT Problem: Neurosensory - Adult Goal: Achieves stable or improved neurological status Outcome: Progressing Goal: Achieves maximal functionality and self care Outcome: Progressing Problem: Respiratory - Adult Goal: Achieves optimal ventilation and oxygenation Outcome: Progressing Problem: Cardiovascular - Adult Goal: Maintains optimal cardiac output and hemodynamic stability Outcome: Progressing Problem: Skin/Tissue Integrity - Adult Goal: Skin integrity remains intact Outcome: Progressing Goal: Oral mucous membranes remain intact Outcome: Progressing Problem: Musculoskeletal - Adult Goal: Return ADL status to a safe level of function Outcome: Progressing Problem: Knowledge Deficit Goal: Patient/family/caregiver demonstrates understanding of disease process, treatment plan, medications, and discharge instructions Outcome: Progressing Problem: Potential for Compromised Skin Integrity Goal: Skin Integrity is Maintained or Improved Outcome: Progressing Goal: Nutritional status is improving Outcome: Progressing Problem: Urinary Incontinence Goal: Perineal skin integrity is maintained or improved Outcome: Progressing Problem: Problem Interventions Goal: Dietary Supplements Outcome: Progressing Goal: Promote nutritional intake Outcome: Progressing [id number]* Care Coordination - Amita Genao RN - 12/03/2024 3:00 PM EDT Care Management Progress Note Chart reviewed. Pt admitted to for evaluation of AMS/UTI. Geriatrics consulted and following. Ptcontinues on IV Rocephin. Met with pt and family at bedside, introduced self and explained role. Ptsees Dr. Ellis for PCP. Pt has insurance and prescription coverage. Per son, denies any difficulties affording scripts. Pt is current with [facility]. Uses [facility]. [facility] liaison made aware. Pt uses [facility] in [place] for scripts. Pt has walker, rollator and cane . Will continue to follow. Length of Stay (Days): 0 GMLOS: No GMLOS Documented [id number] Note* Care Coordination - Amita Genao RN - 12/03/2024 3:00 PM EDT Care Management Progress Note Chart reviewed. Pt admitted to for evaluation of AMS/UTI. Geriatrics consulted and following. Ptcontinues on IV Rocephin. Met with pt and family at bedside, introduced self and explained role. Ptsees Dr. Ellis for PCP. Pt has insurance and prescription coverage. Per son, denies any difficulties affording scripts. Pt is current with [facility]. Uses [facility]. [facility] liaison made aware. Pt uses [facility] in [place] for scripts. Pt has walker, rollator and cane . Will continue to follow. Length of Stay (Days): 0 GMLOS: No GMLOS Documented [id number] Consult note* Ashleigh Ross, 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 - NUCLEAR PLANT INSTRUMENT TECHNICIAN - 12/03/2024 2:02 PM EDTAssociated Order(s): IP CONSULT TO ENDOCRINOLOGY Department of Internal Medicine Division of Endocrinology, Diabetes, & Metabolism Endocrinology Note Patient Name: Hanna Nelson : 1940 AGE: 84 y.o. Room/Bed: [facility]251 B Admission Date: 12/02/2024 Visit Date: 12/03/2024 Reason for Endocrine Consult: Type 2 diabetes mellitus with hyperglycemia on insulin Provider/Team Requesting Consult: Shane Rodriguez PCP: Dorothy Marcela Outpt Tactical [employer] Control Party Manager: No ASSESSMENT: Type 2 diabetes with hyperglycemia Urinary tract infection A-fib with RVR Elevated creatinine Wound to right foot PLAN: Increase Lantus 26 units Continue Humalog to 16 units TID with meals Will hold tradjenta while inpatient ICU goal <180 GMF goal <150 POCT BG ACHS Hypoglycemia management per protocol Carb controlled diet Most recent TSH-3.34-09/21/ Continue levothyroxine 112 mcg daily ANTICIPATED ENDOCRINE HOME GOING RECOMMENDATIONS: Optimized for Discharge from Endocrine standpoint: Yes Home Going Endocrine Rx Recommendations-- Metformin 500 mg BID with meals Start Tradjenta 5 mg daily Start Lantus - Current dose on day of discharge. Outpt Follow Up-- As previously scheduled SUBJECTIVE/HPI: CHIEF COMPLAINT: Chief Complaint Patient presents with Altered Mental Status 84 y.o. female who presents to the emergency department complaining of confusion. History aided by family. Family explained that patient had moved to the ER in the last few months. She has been having issues with her diabetes and also has had recurrent urinary tract infections. Today they tried to call the patient and her phone was not picking up. They suspected that she had unplugs. They also were not able to get readings off of her continuous glucose monitor which they typically are able to do from remote site. Because of these abnormalities they went to check on the patient suspecting thatshe may be confused and possibly dealing with urinary tract infection. They went to patient's home and she was confused Type of DM: 2 Onset of DM: age 49 - [id number] Home DM Medication Regimen: Tradjenta 5 mg daily, metformin 1 tablet twice a day Tresiba 30 units at night DM control (last A1c/glucose data): Lab Results Component Value Date HGBA1C 9.0 (H) 12/02/2024 Family is at bedside son is primary caregiver but also daughter also assists at times Family is very pleased with her blood sugars since she was discharged from the hospital in September Her wound to her foot has been healing and is much improved daily relate this to her controlled blood sugars She is wearing a javier 3 at home she is using her phone and her phone is in her daughter's car so cannot be reviewed at this time She has not had any lows at home Family asking many appropriate questions as far as signs and symptoms of urinary tract infection. How it relates to her blood sugars and her blood pressure TODAY- BGLs as below Running slightly higher than her usual Has been eating her meals without any problems Denies pain or nausea Glucose Date/Time Value Ref Range Status 12/03/2024 11:23 AM 220 (H) 70 - 100 mg/dL Final 12/03/2024 07:09 AM 126 (H) 70 - 100 mg/dL Final 12/03/2024 03:36 AM 220 (H) 70 - 100 mg/dL Final 09/24/2024 11:09 AM 241 (H) 70 - 100 mg/dL Final 09/24/2024 07:38 AM 235 (H) 70 - 100 mg/dL Final 09/23/2024 08:00 PM 229 (H) 70 - 100 mg/dL Final Review of Systems Constitutional: Negative for activity change, appetite change and unexpected weight change. Gastrointestinal: Negative for diarrhea, nausea and vomiting. Endocrine: Negative for polydipsia, polyphagia and polyuria. Genitourinary: Negative for dysuria. Skin: Negative for color change, pallor and wound. ROS negative except for those mentioned in HPI. OBJECTIVE: Vitals: 12/03/24 0509 12/03/24 0734 12/03/24 0945 12/03/24 1128 BP: 109/69 115/72 128/74 BP Location: Left arm Patient Position: Pulse: 91 75 77 Resp: 17 18 Temp: 36.5 C (97.7 F) (!) 35.8 C (96.5 F) TempSrc: Temporal Temporal SpO2: 96% 98% 95% Weight: Height: 5' 10" (1.778 m) Physical Exam Vitals reviewed. Constitutional: General: She is not in acute distress. Appearance: Normal appearance. She is obese. She is not ill-appearing. HENT: Head: Normocephalic and atraumatic. Left Ear: External ear normal. Nose: Nose normal. Mouth/Throat: Mouth: Mucous membranes are moist. Cardiovascular: Rate and Rhythm: Normal rate and regular rhythm. Pulmonary: Effort: Pulmonary effort is normal. No respiratory distress. Musculoskeletal: General: Normal range of motion. Skin: General: Skin is warm and dry. Neurological: General: No focal deficit present. Mental Status: She is alert. Psychiatric: Mood and Affect: Mood normal. Behavior: Behavior normal. 24 hour intake/output: Intake/Output Summary (Last 24 hours) at 12/03/2024 1403 Last data filed at 12/03/2024 0503 Gross per 24 hour Intake 1290 ml Output 1020 ml Net 270 ml Diet: Adult diet Regular; 5 carb choices (75 gm/meal) Medications (as per EMR): HomeMeds: Current Outpatient Medications Medication Instructions Alcohol Swabs (Alcohol Prep) 70 % pads 1 Pad, Does not apply, 3 times daily apixaban (ELIQUIS) 5 mg, 2 times daily atenolol (TENORMIN) 50 mg, 2 times daily atorvastatin (LIPITOR) 40 mg, Daily Blood Glucose Monitoring Suppl (Blood Glucose Monitor System) w/Device kit Check glucose 3x daily fenofibrate (TRIGLIDE) 160 mg, Daily gabapentin (NEURONTIN) 300 mg, 2 times daily glucose blood test strip Use as instructed insulin degludec (TRESIBA FLEXTOUCH) 30 Units, SubCUTAneous, Nightly Lancets Check glucose x3 daily levothyroxine (Tirosint) 112 MCG capsule Daily before breakfast metFORMIN (GLUCOPHAGE) 500 mg, Oral, 2 times daily with meals oxybutynin (DITROPAN) 10 mg, Daily Tradjenta 5 mg, Oral, Daily Scheduled Meds:apixaban, 5 mg, Oral, BID atenolol, 50 mg, Oral, BID atorvastatin, 40 mg, Oral, Daily cefTRIAXone, 1,000 mg, IntraVENous, q24h fenofibrate, 160 mg, Oral, Daily gabapentin, 300 mg, Oral, BID insulin glargine, 27 Units, SubCUTAneous, Nightly insulin lispro, 0-12 Units, SubCUTAneous, TID WC And insulin lispro, 0-12 Units, SubCUTAneous, Nightly levothyroxine, 112 mcg, Oral, qAM AC linaGLIPtin, 5 mg, Oral, Daily Continuous Infusions: PRN Meds:PRN medications: acetaminophen OR acetaminophen, dextrose, dextrose, glucagon (rDNA), glucose, ondansetron ODT OR ondansetron, polyethylene glycol (PEG) 3350 Diagnostic Workup: I reviewed pertinent Laboratory results, Radiographic results, and Other Clinical Notes at the timeof today's encounter. Labs: No components found for: "LABA1C" No components found for: "EAG" Lab Results Component Value Date NA 143 12/02/2024 K 4.6 12/02/2024 CL 112 (H) 12/02/2024 CO2 18 (L) 12/02/2024 BUN 46 (H) 12/02/2024 CREATININE 1.22 (H) 12/02/2024 GLUCOSE 266 (H) 12/02/2024 CALCIUM 9.8 12/02/2024 No results found for: "CHLPL", "CHOL" No results found for: "TRIG" No results found for: "HDL" No results found for: "LDLCALC" No results found for: "VLDL" No results found for: "CHOLHDLRATIO" No results found for: "[id number]" Lab Results Component Value Date TSH 3.34 09/21/2024 Radiology reportsas per the Radiologist Radiology: US renal complete Result Date: 12/03/2024 [facility] 1940 [id number] Exam Date/Time: 12/03/2024 12:02 Procedure: US RENAL COMPLETE Ordering Provider: RODRIGUEZ MAHAVEER Reason For Exam: UTI, recurrent/complicated (Female) RENAL ULTRASOUND CLINICAL INDICATION: Urinary tract infection, recurrent/complicated (Female) Sonographic images of the bilateral kidneys andbladder were obtained. COMPARISON: None. FINDINGS: RIGHT KIDNEY: Size: 12.5 cm Cortex: Normal cortical thickness and echogenicity. Hydronephrosis: None Calculi: None Cysts: 3.9 cm simple upper pole cyst is benign and of no clinical significance. LEFT KIDNEY: Size: 10.3 cm Cortex: Normal cortical thickness and echogenicity. Hydronephrosis: None Calculi: None Cysts: 1.4 cm cyst in the interpolar cortex which is simple and does not require follow-up BLADDER: The bladder is grossly unremarkable aside from minimal debris in the bladder lumen. Other: No mass or fluid collection is seen adjacent to the kidneys. No hydronephrosis or nephrolithiasis. Minimal intraluminal debris in the urinary bladder. Report Dictated on Electronically Signed By: Patel Ortiz MD Electronically Signed Date/Time: 12/03/2024 12:37 PM EDT POCT glucose meter Result Date: 12/03/2024 Performed by: [facility] [address] [facility] [address] CLIA ID: [id number] ECG 12 lead Atrial fibrillation Borderline left axis deviation Borderline T wave abnormalities Borderline prolonged QT interval No previous ECG available for comparison Electronically Signed On 12-03-2024 10:10:35 EDT by Vero Byrd POCT glucose meter Result Date: 12/03/2024 Performed by: [facility], [address] [facility] [address] CLIA ID: [id number] POCT glucose meter Result Date: 12/03/2024 Performed by: [facility], [address] [facility] [address] CLIA ID: [id number] CT head wo IV contrast Result Date: 12/02/2024 Patient Name: HANNA NELSON : 1940 Exam Date/Time: 12/02/2024 22:30 Procedure: CT HEAD WO IV CONTRAST Ordering Provider: MARIE DUSTIN Reason For Exam: confusion CT HEAD: Clinical Indication: Confusion Imaging Technique: Multipleaxial 3mm CT images of the head were obtained from the skull base to the vertex. Coronal and sagittal reconstructs were rendered. Dose reduction was employed with automated exposure control. Comparison: none FINDINGS: There is no intracranial hemorrhage. There is global volume loss with mild small vessel ischemia. The calvarium is intact. The globes are symmetric. The nasal turbinates are edematou s which narrows the nasal passageway. The mastoid air cells are pneumatized. There is no fluid in the right or left middle ear. No acute intracranial process. Report Dictated on Electronically Signed By: Priscila Miramontes MD Electronically Signed Date/Time: 12/02/2024 10:44 PM EDT History/Other: Past Medical History: Past Medical History: Diagnosis Date Atrial fibrillation (HCC) Diabetes mellitus (HCC) Hyperlipidemia Hypertension Hypothyroidism Neuropathy Past Surgical History: Past Surgical History: Procedure Laterality Date BACK SURGERY CHOLECYSTECTOMY Allergy(ies): Allergies Allergen Reactions Tape Rash Family History: No family history on file. Social History: Social History Tobacco Use Smoking status: Former Current packs/day: 0.00 Types: Cigarettes Quit date: 1964 Years since quittin.3 Smokeless tobacco: Never Vaping Use Vaping status: Never Used Substance Use Topics Alcohol use: Not Currently Drug use: Never Portions of the information within this encounter were entered using an electronic dictation system. Best attempts were made to edit/proofread the information prior to note completion. Despite the review of information, some errors may remain. If there are questions related to the information contained within the note please contact the signing physician directly. I spent 75 minutes with the pt which involved coordination of care, medical evaluation, review of records, and/or counseling of the pt regarding his/her condition/disease state/prognosis on the date of this note. Cosigned by Demetrio Shahid MD at 12/04/2024 4:04 PM EDT [place] [id number] Consult note* ALEJANDRINA Latif CNP - 12/03/2024 1:45 PM EDTAssociated Order(s): IP CONSULT TO GERIATRICS [facility] Geriatric Medicine Inpatient Consult Service Admission Date: 12/02/2024 Admission Status: INPATIENT Chief Complaint: confusion Reason for Appointment Geriatrics consulted for "suspect early Dementia" Assessment & Plan Principal Problem: Confusion Acute Metabolic Encephalopathy --confusion improving per family --Etiology likely acute illness, hospital environment --Encourage PO intake, time up in chair, family visits, supervised ambulation, and sleep hygiene --If agitated, assess for and consider treating for pain --QTc= 493 ms --No antipsychotic unless patient is danger to self/others/treatment --Start PRN melatonin at HS --Monitor for constipation/urinary retention - last BM 12/02 --Possible medication contributions: missing home medications Cognitive Impairment --Followed by [facility]. Concern for Alzheimer's Dementia. --Lives alone, family provides assistance --Uncontrolled DM and episodes of hyperglycemia likely impacting cognition also. (A1C improved from12.2 to 9.0) --Recommend avoiding anticholinergic medications. Consider stopping Oxybutynin outpatient. Debility --contributing factors include DM, Neuropathy --uses rollator at times at baseline --PT and OT evals pending Neuropathy --continue Gabapentin 300mg BID I spent total time of 70 minutes face to face with the patient and/or family discussing the diagnosis and importance of compliance with the treatment plan as well as documenting on the day of the visit. In addition, that total time includes the following: -Reviewing previous notes, -Reviewing labs, -Reviewing previous cognitive tests, -Obtaining and/or reviewing separately obtained history, -Ordering prescription medications, tests and procedures, -Communicating results to the patient/family/caregiver, -Counseling/educating the patient/family/caregiver, - Documenting clinical information in the patients electronic record, and - Performing a medically appropriate exam and/or evaluation Subjective: HPI 84 y.o. year-old female with PMH of atrial fibrillation, DM, HLD, HTN, Hypothyroidism, Neuropathy presented to [facility] on 12/02/24 with complaints of confusion. Admitted for possible UTI and uncontrolled blood sugars. Known to geriatrics seen during September hospital admission and then outpatient follow up at the [facility] with Dr. Wright on 10/15/24. Concern for mild to moderate stage Alzheimer's Dementia. MRI brain ordered. MoCA 06/10 (score may have been impacted by hyperglycemia). Recommend retesting at Family Summary Conference in December. Geriatrics ED screen: Do you (or your loved one) have problems with your memory that affect your (their) day to day activities or that you or your family notice most days?: No Do you (or loved one) live alone AND/OR Do you (they) need more help at home then you (they) have now or currently available?: No Have you (or loved one) been in the hospital in the last 3 months?: Yes Do you (or loved one) have trouble with your walking or balance? Or Have you (they) fallen recently?: Yes Do you (or loved one) take more than 5 medications or vitamins every day?: Yes When compared to others your (their) own age, are you (or loved one) in worse health?: No Total Score: 3 Nursing Delirium Screen (Nu-Desc): Nursing Delirium Symptom Checklist Total Score: 1 Conversation with patient: --She is not sure why she is in the hospital. She is hoping to go home soon. --Has no trouble with her medications including insulin. Does not miss doses. --Lives alone and her children frequently visit her. She feels she manages well at home. Conversation with caregiver: son Hi Nelson . -Since Sep hospitalization, she has been improving. -A1C improving. Diet improving. -Seeing wound care weekly. -Nursing visits 2 times a week, therapy visiting -has frequent UTIs and this causes decline -Manages meds well other than when she is ill. Advance Care Planning Healthcare Power of Manager Functional: Yes, son Hi, then daughter Financial Power of Manager Functional: Yes, son Hi, then daughter Living Will:Yes Code Status: Full Code Allergies Allergen Reactions Tape Rash Current Facility-Administered Medications: acetaminophen (Tylenol) tablet 650 mg, 650 mg, Oral, q6h PRN OR acetaminophen (Tylenol) suppository 650 mg, 650 mg, Rectal, q6h PRN, Karolina Cooper MD apixaban (Eliquis) tablet 5 mg, 5 mg, Oral, BID, Karolina Cooper MD, 5 mg at 12/03/24 0814 atenolol (Tenormin) tablet 50 mg, 50 mg, Oral, BID, Karolina Cooper MD, 50 mg at 12/03/24 0320 atorvastatin (Lipitor) tablet 40 mg, 40 mg, Oral, Daily, Karolina Cooper MD, 40 mg at 12/03/24 0814 cefTRIAXone (Rocephin) 1,000 mg in sodium chloride 0.9 % 50 mL IVPB Mini-Bag Plus, 1,000 mg, IntraVENous, q24h, Karolina Cooper MD dextrose 5 % infusion, 100 mL/hr, IntraVENous, PRN, Karolina Cooper MD dextrose 50 % solution 12.5 g, 12.5 g, IntraVENous, PRN, Karolina Cooper MD fenofibrate (Triglide) tablet 160 mg, 160 mg, Oral, Daily, Karolina Cooper MD, 160 mg at 12/03/24 0814 gabapentin (Neurontin) capsule 300 mg, 300 mg, Oral, BID, Karolina Cooper MD glucagon (human recombinant) injection 1 mg, 1 mg, IntraMUSCular, PRN, Karolina Cooper MD glucose oral gel 15 g, 15 g, Oral, PRN, Karolina Cooper MD insulin glargine (Lantus) injection 27 Units, 27 Units, SubCUTAneous, Nightly, Karolina Cooper MD, 27 Units at 12/03/24 0336 Insulin Lispro (Humalog) injection 0-12 Units, 0-12 Units, SubCUTAneous, TID WC, 4 Units at 12/03/24 1231 AND Insulin Lispro (Humalog) injection 0-12 Units, 0-12 Units, SubCUTAneous, Nightly, Shane Rodriguez MD levothyroxine (Synthroid, Levoxyl) tablet 112 mcg, 112 mcg, Oral, qAM AC, Karolina Cooper MD, 112 mcg at 12/03/24 0554 linaGLIPtin (Tradjenta) tablet 5 mg, 5 mg, Oral, Daily, Sahne Rodriguez MD, 5 mg at 12/03/24 0916 ondansetron ODT (Zofran-ODT) disintegrating tablet 4 mg, 4 mg, Oral, q8h PRN OR ondansetron (Zofran) injection 4 mg, 4 mg, IntraVENous, q6h PRN, Karolina Cooper MD polyethylene glycol (PEG) 3350 (Miralax) packet 17 g, 17 g, Oral, Daily PRN, Karolina Cooper MD Past Medical History: Diagnosis Date Atrial fibrillation (HCC) Diabetes mellitus (HCC) Hyperlipidemia Hypertension Hypothyroidism Neuropathy Past Surgical History: Procedure Laterality Date BACK SURGERY CHOLECYSTECTOMY Social History Tobacco Use Smoking status: Former Current packs/day: 0.00 Types: Cigarettes Quit date: 1964 Years since quittin.3 Smokeless tobacco: Never Substance Use Topics Alcohol use: Not Currently Social History Social History Narrative Not on file Family History No family history on file. No family status information on file. Review of Systems Constitutional: Negative for fatigue. HENT: Negative for congestion. Respiratory: Negative for cough and shortness of breath. Gastrointestinal: Negative for abdominal pain and constipation. Genitourinary: Negative for difficulty urinating. Musculoskeletal: Negative for arthralgias. Neurological: Negative for dizziness and weakness. Psychiatric/Behavioral: Positive for confusion. Negative for dysphoric mood and sleep disturbance. The patient is not nervous/anxious. Functional Status Prior to Admission: (I: Independent, A: Assisted, D: Dependent) ADLs I A D Notes Bathing [x] [] [] Dressing [x] [] [] Toileting [x] [] [] Transfers [x] [] [] Feeding [x] [] [] Ambulation [x] [] [] Assistive devices: rolling walker IADLs I A D Telephone [] [x] [] Transportation [] [] [x] Shopping [] [x] [] Meal prep [] [x] [] Housework [] [x] [] Medications [] [x] [] Finances [] [x] [] Objective: BP 128/74 Pulse 77 Temp (!) 35.8 C (96.5 F) (Temporal) Resp 18 Ht 5' 10" (1.778 m) Wt 202lb 4.8 oz (91.8 kg) SpO2 95% BMI 29.03 kg/m Intake/Output Summary (Last 24 hours) at 12/03/2024 1345 Last data filed at 12/03/2024 0503 Gross per 24 hour Intake 1290 ml Output 1020 ml Net 270 ml Wt Readings from Last 3 Encounters: 12/03/24 202 lb 4.8 oz (91.8 kg) 10/15/24 199 lb 6.4 oz (90.4 kg) 09/17/24 200 lb (90.7 kg) Physical Exam Vitals reviewed. Constitutional: General: She is not in acute distress. Appearance: Normal appearance. HENT: Head: Normocephalic and atraumatic. Cardiovascular: Rate and Rhythm: Normal rate and regular rhythm. Pulmonary: Effort: Pulmonary effort is normal. No respiratory distress. Breath sounds: Normal breath sounds. Abdominal: General: Bowel sounds are normal. There is no distension. Palpations: Abdomen is soft. Tenderness: There is no abdominal tenderness. Musculoskeletal: Right lower leg: No edema. Left lower leg: No edema. Neurological: Mental Status: She is alert. Comments: States she does not keep track of dates Psychiatric: Attention and Perception: Attention normal. Mood and Affect: Mood normal. Cognition and Memory: Cognition is impaired. Memory is impaired. Labs and Imaging: Recent Results (from the past 24 hours) Beta Hydroxybutyrate Collection Time: 12/02/24 9:32 PM Result Value Ref Range BETA HYDROXYBUTYRATE 7.7 (H) <=2.8 mg/dL CBC auto differential Collection Time: 12/02/24 9:32 PM Result Value Ref Range Auto WBC 6.9 3.6 - 10.7 10*3/uL RBC 4.15 3.80 - 5.20 10*6/uL Hemoglobin 12.5 11.7 - 16.0 g/dL Hematocrit 36.9 35.0 - 47.0 % MCV 88.9 77.0 - 99.0 fL MCH 30.1 26.0 - 34.0 pg MCHC 33.9 30.5 - 36.0 % RDW 13.4 11.5 - 15.0 % Platelets 276 140 - 440 10*3/uL MPV 10.3 9.0 - 12.7 fL nRBC 0.0 0.0 - 2.0 /100 WBCs Neutrophils Relative 63.2 38.0 - 82.0 % Lymphocytes Relative 18.1 15.0 - 45.0 % Monocytes Relative 9.0 5.0 - 13.0 % Eosinophils Relative 7.1 (H) 0.0 - 6.0 % Basophils Relative 0.6 0.0 - 2.0 % Immature Grans % 2.0 0.0 - 2.0 % Neutrophils Absolute 4.4 1.8 - 7.5 10*3/uL Lymphocytes Absolute 1.3 1.0 - 4.3 10*3/uL Monocytes Absolute 0.6 0.0 - 0.9 10*3/uL Eosinophils Absolute 0.5 0.0 - 0.5 10*3/uL Basophils Absolute 0.0 0.0 - 0.2 10*3/uL Immature Grans Absolute 0.1 (H) <0.1 10*3/uL Comprehensive metabolic panel Collection Time: 12/02/24 9:32 PM Result Value Ref Range SODIUM 143 136 - 145 mmol/L POTASSIUM 4.6 3.5 - 5.1 mmol/L CHLORIDE 112 (H) 98 - 107 mmol/L CARBON DIOXIDE 18 (L) 23 - 31 mmol/L ANION GAP 13 3 - 13 mmol/L UREA NITROGEN 46 (H) 9 - 23 mg/dL CREATININE 1.22 (H) 0.57 - 1.11 mg/dL GLUCOSE 266 (H) 82 - 115 mg/dL CALCIUM 9.8 8.8 - 10.0 mg/dL AST (SGOT) 27 <34 U/L ALT 19 <30 U/L ALKALINE PHOSPHATASE 63 40 - 150 U/L ALBUMIN 3.9 3.4 - 4.8 g/dL BILIRUBIN, TOTAL 0.4 <1.2 mg/dL TOTAL PROTEIN 7.6 6.4 - 8.3 g/dL eGFR 43.6 (L) >60.0 mL/min/1.73m*2 Hemoglobin A1c Collection Time: 12/02/24 9:32 PM Result Value Ref Range HEMOGLOBIN A1C 9.0 (H) <5.7 %HbA1C ESTIMATED AVERAGE GLUCOSE 212 mg/dL Procalcitonin Test Collection Time: 12/02/24 9:32 PM Result Value Ref Range PROCALCITONIN 0.07 (H) <0.07 ng/mL C-reactive protein Collection Time: 12/02/24 9:32 PM Result Value Ref Range C REACTIVE PROTEIN 3.5 <5.0 mg/L Complete Urinalysis Collection Time: 12/02/24 10:01 PM Result Value Ref Range Color, Urine Light Yellow Lt. Yellow Clarity, Urine Clear Clear pH, Urine 5.5 5.0 - 8.0 pH Leukocytes, Urine 250 (A) Negative Baljit/uL Nitrite, Urine Negative Negative Protein, Urine Negative Negative mg/dL Glucose, Urine 1,000 (A) Normal (<70) mg/dL Bilirubin, Urine Negative Negative mg/dL Ketones, Urine Negative Negative mg/dL Urobilinogen, Urine Normal Normal (0-1) mg/dL Blood, Urine Negative Negative mg/dL Volume, Urine 12 mL RBC, Urine 0-2 0 - 2 /HPF WBC, Urine 11-25 (A) 0 - 5 /HPF Squamous Epithelial, Urine Negative 3 - 5 /HPF Bacteria, Urine Loaded (A) Negative /HPF WBC Clumps, Urine Few (A) Negative /HPF SPECIFIC GRAVITY OF URINE (NUMERIC) 1.009 1.005 - 1.030 POCT glucose meter Collection Time: 12/03/24 3:36 AM Result Value Ref Range Glucose 220 (H) 70 - 100 mg/dL ECG 12 lead Collection Time: 12/03/24 3:55 AM Result Value Ref Range Heart Rate 112 bpm QRSD Interval 88 ms QT Interval 361 ms QTC Interval 493 ms P [place] 0 degrees QRS [place] -21 degrees T Wave [place] 11 degrees [place] Interval 0 ms POCT glucose meter Collection Time: 12/03/24 7:09 AM Result Value Ref Range Glucose 126 (H) 70 - 100 mg/dL POCT glucose meter Collection Time: 12/03/24 11:23 AM Result Value Ref Range Glucose 220 (H) 70 - 100 mg/dL Lab Results Component Value Date TSH 3.34 09/21/2024 No components found for: "B12" No results found for: "VITD25" Reviewed: active problem list, medication list, allergies, social history, notes from last encounter, notes from last several encounters, lab results, imaging Follow-up: will follow with you ALEJANDRINA Esteban CNP 12/03/24 1:45 PM [id number] manager of medical Note* Significant Event - Shane Rodriguez MD - 12/03/2024 11:50 AM EDT Patient seen and examined, admitted earlier by the bridge teacher, see H&P for details, patient admitted for acute delirium possibly due to infectious encephalopathy and UTI, alert and oriented x 2 this a.m., not in acute distress, blood sugars uncontrolled, he is a type II diabetic on insulin, continue ceftriaxone and follow urine culture, adjust insulin, carb controlled diet. Will continue to follow. Also discussed with her daughter at bedside regarding recurrent UTIs and per daughter her HbA1c is 12 and her blood sugars have improved since September and she is on javier and sees it specialist will have endocrinology see her while in the hospital. Patient is aware of the carb controlled diet. Eating well, does not require IV fluids Check renal ultrasound Total time spent 45 minutes prolonged time. [id number] Note* Home Care - Bella Meléndez RN - 12/03/2024 11:09 AM EDT Patient is currently active with [facility]. The patients current certification period will on 12/03/2024. The patient is currently receiving SN, PT services through the agency. [facility] to continue to follow. [id number] Note* Home Care - Bella Meléndez RN - 12/03/2024 11:09 AM EDT Patient is currently active with [facility]. The patients current certification period will on 12/03/2024. The patient is currently receiving SN, PT services through the agency. [facility] to continue to follow. [facility] [id number] Nurse Note* Scott Aaron RN - 12/03/2024 3:29 AM EDT 12/03/24 0325 12/03/24 0329 Urine Output/Assessment Voided Urine (mL) 420 mL -- Post Void Residual (mL) -- 375 mL Pt denies any discomfort/feeling of urgency to urinate after voiding. Dr. Cooper notified via [employer]. [id number] Nurse Note* Scott Aaron RN - 12/03/2024 3:29 AM EDT 12/03/24 0325 12/03/24 0329 Urine Output/Assessment Voided Urine (mL) 420 mL -- Post Void Residual (mL) -- 375 mL Pt denies any discomfort/feeling of urgency to urinate after voiding. Dr. Cooper notified via securechat. * Scott Aaron RN - 12/03/2024 3:02 AM EDT Pt a fib RVR - sustaining HR 110-130s. Pt does have history of a fib. Dr Cooper notified via Secure Chat. * Scott Aaron RN - 12/03/2024 1:28 AM EDT Pt has arrived to [place]. Admission database completed with pt children at bedside. Pt A&O x1 at this time. Dr. Cooper notified of pt arrival via SecureChat. Pt resting in bed. Bed alarm on, call light within reach. * Scott Aaron RN - 12/02/2024 11:37 PM EDT Chart accessed pending transfer to [facility]. documented in this [facility]04-24-2025 Nurse Note* Scott Aaron RN - 12/03/2024 3:02 AM EDT Pt a fib RVR - sustaining HR 110-130s. Pt does have history of a fib. Dr Cooper notified via Secure Chat. [facility] [id number] History and physical note* Karolina Cooper MD - 12/03/2024 2:58 AM EDT Images from the original note were not included. [facility] and [facility] 1940 AGE 84 y.o. YEARS Note Date 12/03/2024 Primary Care Physician:Dorothy Medrano Current Providers as of 12/02/2024 PCP: Dorothy Medrano Referring Provider: not found, starting on SatDec 02, 2024 12:00 AM Admitting Provider: Karolina Cooper MD, (Active) Attending Provider: León Marie DO, starting on SatDec 02, 2024 9:11 PM, ending on SatDec 03, 2024 12:31 AM (Inactive) Attending Provider: Karolina Cooper MD, starting on SatDec 02, 2024 11:13 PM (Active) Registered Nurse: Lashell Martinez RN, starting on SatDec 02, 2024 9:46 PM, ending on SatDec 03, 2024 12:32 AM (Inactive) Registered Nurse: Scott Aaron RN, starting on SatDec 02, 2024 11:30 PM (Active) Chief Complaint: Altered Mental Status HPI: She missed her meds for 2 days according to family Confused per family, family suspected uti She reports she felt fine She may have had some palpitations She thinks she was taking her medicines She does not think she urinates often or has any other urinary symptoms now She was not checking her glucose at home recently She reports her heart was beating fast earlier, but now has improved She denies any falls She does live alone with family who check on her. It is possible she could be not remembering some issues she has at home as her family reports she is currently more confused than normal. She reports that she has a right foot ulcer that has been present for a long time This has not changed much Review of Systems: General: Skin: HEENT: Cardiovascular Fever n Rashes n Difficulty chewing n Chest Pain n Chills n Sores Appetite Loss n Chest Pressure n Fatigue n Epistaxis n Orthopnea n Sweats n Hearing loss n Palpitations GI: Tinnitus n GERD n Vision quality RESP: Abdominal Pain n : SOB/JEFFERS n Nausea n Hematuria n Cough n Vomiting n Dysuria n Productive/Sputum n Hematemesis n NEURO: Urgency n Hemoptysis n Diarrhea n Headaches n Frequency n Wheezing n Constipation n Seizures n Times at night urinating n Heamatochezia Neuropathy n catheter present n MSK: Melena Focal weakness n Hesitancy n Focal Numbness n Incontinence n Acute joint pain n Dizzy/Vertigo Redness n Difficulty speaking Heme/Lymph Swelling n Difficulty walking Lymphadenopathy Myalgia n Ataxia Chronic joint pain n Past Medical History: Diagnosis Date Atrial fibrillation (HCC) Diabetes mellitus (HCC) Hyperlipidemia Hypertension Hypothyroidism Neuropathy Past Surgical History: Procedure Laterality Date BACK SURGERY CHOLECYSTECTOMY Allergies Allergen Reactions Tape Rash Medications Prior to Admission: Medications Reviewed with patient at bedside - were able to verify most meds but not completely Current Outpatient Medications Medication Instructions Alcohol Swabs (Alcohol Prep) 70 % pads 1 Pad, Does not apply, 3 times daily apixaban (ELIQUIS) 5 mg, 2 times daily atenolol (TENORMIN) 50 mg, 2 times daily atorvastatin (LIPITOR) 40 mg, Daily Blood Glucose Monitoring Suppl (Blood Glucose Monitor System) w/Device kit Check glucose 3x daily fenofibrate (TRIGLIDE) 160 mg, Daily gabapentin (NEURONTIN) 300 mg, 2 times daily glucose blood test strip Use as instructed insulin degludec (TRESIBA FLEXTOUCH) 30 Units, SubCUTAneous, Nightly Lancets Check glucose x3 daily levothyroxine (Tirosint) 112 MCG capsule Daily before breakfast metFORMIN (GLUCOPHAGE) 500 mg, Oral, 2 times daily with meals oxybutynin (DITROPAN) 10 mg, Daily Tradjenta 5 mg, Oral, Daily Social History Social History Tobacco Use Smoking status: Former Current packs/day: 0.00 Types: Cigarettes Quit date: 1964 Years since quittin.3 Smokeless tobacco: Never Substance Use Topics Alcohol use: Not Currently Family History No family history on file. Physical Exam Temp (24hrs), Av.4 C (97.5 F), Min:36.2 C (97.1 F), Max:36.6 C (97.9 F) Body mass index is 29.03 kg/m .BMI Classification: Overweight (BMI 25.0-29.9) BP (!) 168/90 Pulse 92 Temp 36.2 C (97.1 F) (Temporal) Resp 18 Ht 5' 10" (1.778 m) Wt 202lb 4.8 oz (91.8 kg) SpO2 94% BMI 29.03 kg/m Pulse Ox: SpO2 Av.9 % Min: 94 % Max: 99 % Supplemental O2: General appearance: No apparent distress, appears stated age and cooperative with exam HEENT: Normal cephalic, atraumatic without obvious deformity. Pupils equal, round, and reactive to light. Extra ocular muscles intact. Conjunctivae/corneas clear. Neck: Supple, with full range of motion. No jugular venous distention. Trachea midline. No lymphadenopathy. Respiratory: Normal respiratory effort. Clear to auscultation, bilaterally without Rales/Wheezes/Rhonchi. Cardiovascular: Regular rate and rhythm with normal S1/S2 without murmurs, rubs or gallops. Abdomen: Soft, non-tender, non-distended with normal bowel sounds. No rebound or guarding. Musculoskeletal: Lower extremities with trace edema. As pictured below there is an ulcer on the right foot with not much surrounding erythema Skin: Neurologic: Neurovascularly intact without any focal sensory/motor deficits. Cranial nerves grosslyintact. Labs Admission on 12/02/2024 Component Date Value BETA HYDROXYBUTYRATE 12/02/2024 7.7 (H) Auto WBC 12/02/2024 6.9 RBC 12/02/2024 4.15 Hemoglobin 12/02/2024 12.5 Hematocrit 12/02/2024 36.9 MCV 12/02/2024 88.9 MCH 12/02/2024 30.1 MCHC 12/02/2024 33.9 RDW 12/02/2024 13.4 Platelets 12/02/2024 276 MPV 12/02/2024 10.3 nRBC 12/02/2024 0.0 Neutrophils Relative 12/02/2024 63.2 Lymphocytes Relative 12/02/2024 18.1 Monocytes Relative 12/02/2024 9.0 Eosinophils Relative 12/02/2024 7.1 (H) Basophils Relative 12/02/2024 0.6 Immature Grans % 12/02/2024 2.0 Neutrophils Absolute 12/02/2024 4.4 Lymphocytes Absolute 12/02/2024 1.3 Monocytes Absolute 12/02/2024 0.6 Eosinophils Absolute 12/02/2024 0.5 Basophils Absolute 12/02/2024 0.0 Immature Grans Absolute 12/02/2024 0.1 (H) SODIUM 12/02/2024 143 POTASSIUM 12/02/2024 4.6 CHLORIDE 12/02/2024 112 (H) CARBON DIOXIDE 12/02/2024 18 (L) ANION GAP 12/02/2024 13 UREA NITROGEN 12/02/2024 46 (H) CREATININE 12/02/2024 1.22 (H) GLUCOSE 12/02/2024 266 (H) CALCIUM 12/02/2024 9.8 AST (SGOT) 12/02/2024 27 ALT 12/02/2024 19 ALKALINE PHOSPHATASE 12/02/2024 63 ALBUMIN 12/02/2024 3.9 BILIRUBIN, TOTAL 12/02/2024 0.4 TOTAL PROTEIN 12/02/2024 7.6 eGFR 12/02/2024 43.6 (L) Color, Urine 12/02/2024 Light Yellow Clarity, Urine 12/02/2024 Clear pH, Urine 12/02/2024 5.5 Leukocytes, Urine 12/02/2024 250 (A) Nitrite, Urine 12/02/2024 Negative Protein, Urine 12/02/2024 Negative Glucose, Urine 12/02/2024 1,000 (A) Bilirubin, Urine 12/02/2024 Negative Ketones, Urine 12/02/2024 Negative Urobilinogen, Urine 12/02/2024 Normal Blood, Urine 12/02/2024 Negative Volume, Urine 12/02/2024 12 mL RBC, Urine 12/02/2024 0-2 WBC, Urine 12/02/2024 11-25 (A) Squamous Epithelial, Uri* 12/02/2024 Negative Bacteria, Urine 12/02/2024 Loaded (A) WBC Clumps, Urine 12/02/2024 Few (A) SPECIFIC GRAVITY OF URIN* 12/02/2024 1.009 EKG Assessment/Plan and Medical Decision Making Infectious Disease Per family patient is more confused and this is consistent with when she has hadurinary tract infections in the past. Per patient she denies symptoms and feels fine Urinalysis performed in the emergency room consistent with UTI urine culture currently pending she started on Rocephin which I will continue Every 24 hours 1 g On presentation her white blood count is normal at 6.9 She is afebrile but was tachycardic. She meets 1 SIRS criteria by being tachycardic She does have a right foot ulcer. Patient reports it is chronic and has not changed much recently this could also be a source of infection - However, she looks to be following with podiatry already for this as and outpatient and saw them recently with similar pictures SIRS Criteria Sepsis Criteria Severe Sepsis Criteria Septic Shock Criteria Must meet 2: [] Temperature > 100.4 F (38 C) or < 96.8 F (36 C) [x] HR > 90 [] RR > 20 [] WBC > 12 or < 4 or 10% bands Must be confirmed or suspected to move forward with diagnosis of sepsis. Must select at least one: [x] Bacterial Infection Confirmed or Suspected. [] Viral Infection Confirmed or Suspected. [] No infection suspected Must meet 1: [] Lactate > 2 or [] Signs of Organ Dysfunction: - SBP < 90 or MAP < 65 - Altered mental status - Creatinine > 2 or increased from baseline - Urine Output < 0.5 ml/kg/hr - Bilirubin > 2 - INR > 1.5 - Platelets < 100,000 - Acute Respiratory Failure as evidenced by new need for NIPPV or mechanical ventilation . Must meet 1: [] Lactate = or > 4 or [] SBP < 90 or MAP < 65 for at least two readings in the first hour after fluid bolus administration [] No SIRS criteria met [x] Only one SIRS criteria met (Patient does not meet criteria for SIRS) [] Sirs Criteria Met (at least 2) [x] Criteria for sepsis NOT met [] Criteria for sepsis met [] No criteria met for severe sepsis [] Criteria for severe sepsis met [] No criteria met for septic shock. [] Criteria met for septic shock. Elevated creatinine Will request bladder scan to be performed. Creatinine 1.22 may be slightly elevated than recent baseline but appears similar to values she had back in September Lab Results Component Value Date CREATININE 1.22 (H) 12/02/2024 CREATININE 1.07 09/24/2024 CREATININE 1.08 09/23/2024 CREATININE 1.04 09/22/2024 CREATININE 1.04 09/21/2024 CREATININE 1.03 09/20/2024 CREATININE 1.10 09/19/2024 CREATININE 1.41 (H) 09/18/2024 CREATININE 1.22 (H) 09/17/2024 CREATININE 1.49 (H) 09/17/2024 diabetes Hyperglycemia on presentation glucose elevated 266 At home she is on Tresiba insulin which has been reordered. She may have missed this medication recently will additionally order Tradjenta and temporarily hold her metformin will cover with sliding scale insulin and monitor her sugar Afib rvr She is on atenolol and apixiban at home Currently is in A-fib RVR after arriving from the emergency room I gave her 1 dose of iv Lopressor and restarted her atenolol continue her chronic anticoagulation with apixaban She does report feeling some occasional palpitations at home Will continue to monitor on telemetry Resume diet I discussed the need for admission with the emergency provider. -DVT prophylaxis: [] Lovenox [] Heparin [] SCDs [x] Encourage ambulation [x] Already on Anticoagulation [] Pharmocologic prophylaxis on hold to due risk bleed/procedure [] Low risk, ambulatory [] Both pharmacologic and mechanical contraindicated 45 minutes - Time spent on admission 12/03/2024 Hanna Nelson [id number] Any scheduled follow up appointments Future Appointments Date Time Provider Department Center 12/04/2024 12:45 PM [address]allely Alas DPM [facility] None 12/24/2024 9:30 AM ALEJANDRINA Urias CNP [facility] None 01/07/2025 1:00 PM Kraig Wright MD [facility] CS None Extended Emergency Contact Information Primary Emergency Contact: Hi Nelson Relation: Son Preferred language: Burmese Metal Bumper needed? No Secondary Emergency Contact: Melba Black [facility] [place] [employer] Relation: Daughter Portions of this note may be electronically transcribed. Please forward a copy of this H&P to the primary care physician. [facility] [employer] Work Phone: [phone] [facility]04-24-2025 History and physical note* Karolina Cooper MD - 12/03/2024 2:58 AM EDT Images from the original note were not included. History and Physical [facility] 1940 AGE 84 y.o. YEARS Note Date 12/03/2024 Primary Care Physician:Dorothy Medrano Current Providers as of 12/02/2024 PCP: Dorothy Medrano Referring Provider: not found, starting on SatDec 02, 2024 12:00 AM Admitting Provider: Karolina Cooper MD, (Active) Attending Provider: León Marie DO, starting on SatDec 02, 2024 9:11 PM, ending on SatDec 03, 2024 12:31 AM (Inactive) Attending Provider: Karolina Cooper MD, starting on SatDec 02, 2024 11:13 PM (Active) Registered Nurse: Lashell Martinez RN, starting on SatDec 02, 2024 9:46 PM, ending on SatDec 03, 2024 12:32 AM (Inactive) Registered Nurse: Scott Aaron RN, starting on SatDec 02, 2024 11:30 PM (Active) Chief Complaint: Altered Mental Status HPI: She missed her meds for 2 days according to family Confused per family, family suspected uti She reports she felt fine She may have had some palpitations She thinks she was taking her medicines She does not think she urinates often or has any other urinary symptoms now She was not checking her glucose at home recently She reports her heart was beating fast earlier, but now has improved She denies any falls She does live alone with family who check on her. It is possible she could be not remembering some issues she has at home as her family reports she is currently more confused than normal. She reports that she has a right foot ulcer that has been present for a long time This has not changed much Review of Systems: General: Skin: HEENT: Cardiovascular Fever n Rashes n Difficulty chewing n Chest Pain n Chills n Sores Appetite Loss n Chest Pressure n Fatigue n Epistaxis n Orthopnea n Sweats n Hearing loss n Palpitations GI: Tinnitus n GERD n Vision quality RESP: Abdominal Pain n : SOB/JEFFERS n Nausea n Hematuria n Cough n Vomiting n Dysuria n Productive/Sputum n Hematemesis n NEURO: Urgency n Hemoptysis n Diarrhea n Headaches n Frequency n Wheezing n Constipation n Seizures n Times at night urinating n Heamatochezia Neuropathy n catheter present n MSK: Melena Focal weakness n Hesitancy n Focal Numbness n Incontinence n Acute joint pain n Dizzy/Vertigo Redness n Difficulty speaking Heme/Lymph Swelling n Difficulty walking Lymphadenopathy Myalgia n Ataxia Chronic joint pain n Past Medical History: Diagnosis Date Atrial fibrillation (HCC) Diabetes mellitus (HCC) Hyperlipidemia Hypertension Hypothyroidism Neuropathy Past Surgical History: Procedure Laterality Date BACK SURGERY CHOLECYSTECTOMY Allergies Allergen Reactions Tape Rash Medications Prior to Admission: Medications Reviewed with patient at bedside - were able to verify most meds but not completely Current Outpatient Medications Medication Instructions Alcohol Swabs (Alcohol Prep) 70 % pads 1 Pad, Does not apply, 3 times daily apixaban (ELIQUIS) 5 mg, 2 times daily atenolol (TENORMIN) 50 mg, 2 times daily atorvastatin (LIPITOR) 40 mg, Daily Blood Glucose Monitoring Suppl (Blood Glucose Monitor System) w/Device kit Check glucose 3x daily fenofibrate (TRIGLIDE) 160 mg, Daily gabapentin (NEURONTIN) 300 mg, 2 times daily glucose blood test strip Use as instructed insulin degludec (TRESIBA FLEXTOUCH) 30 Units, SubCUTAneous, Nightly Lancets Check glucose x3 daily levothyroxine (Tirosint) 112 MCG capsule Daily before breakfast metFORMIN (GLUCOPHAGE) 500 mg, Oral, 2 times daily with meals oxybutynin (DITROPAN) 10 mg, Daily Tradjenta 5 mg, Oral, Daily Social History Social History Tobacco Use Smoking status: Former Current packs/day: 0.00 Types: Cigarettes Quit date: 1964 Years since quittin.3 Smokeless tobacco: Never Substance Use Topics Alcohol use: Not Currently Family History No family history on file. Physical Exam Temp (24hrs), Av.4 C (97.5 F), Min:36.2 C (97.1 F), Max:36.6 C (97.9 F) Body mass index is 29.03 kg/m .BMI Classification: Overweight (BMI 25.0-29.9) BP (!) 168/90 Pulse 92 Temp 36.2 C (97.1 F) (Temporal) Resp 18 Ht 5' 10" (1.778 m) Wt 202lb 4.8 oz (91.8 kg) SpO2 94% BMI 29.03 kg/m Pulse Ox: SpO2 Av.9 % Min: 94 % Max: 99 % Supplemental O2: General appearance: No apparent distress, appears stated age and cooperative with exam HEENT: Normal cephalic, atraumatic without obvious deformity. Pupils equal, round, and reactive to light. Extra ocular muscles intact. Conjunctivae/corneas clear. Neck: Supple, with full range of motion. No jugular venous distention. Trachea midline. No lymphadenopathy. Respiratory: Normal respiratory effort. Clear to auscultation, bilaterally without Rales/Wheezes/Rhonchi. Cardiovascular: Regular rate and rhythm with normal S1/S2 without murmurs, rubs or gallops. Abdomen: Soft, non-tender, non-distended with normal bowel sounds. No rebound or guarding. Musculoskeletal: Lower extremities with trace edema. As pictured below there is an ulcer on the right foot with not much surrounding erythema Skin: Neurologic: Neurovascularly intact without any focal sensory/motor deficits. Cranial nerves grosslyintact. Labs Admission on 12/02/2024 Component Date Value BETA HYDROXYBUTYRATE 12/02/2024 7.7 (H) Auto WBC 12/02/2024 6.9 RBC 12/02/2024 4.15 Hemoglobin 12/02/2024 12.5 Hematocrit 12/02/2024 36.9 MCV 12/02/2024 88.9 MCH 12/02/2024 30.1 MCHC 12/02/2024 33.9 RDW 12/02/2024 13.4 Platelets 12/02/2024 276 MPV 12/02/2024 10.3 nRBC 12/02/2024 0.0 Neutrophils Relative 12/02/2024 63.2 Lymphocytes Relative 12/02/2024 18.1 Monocytes Relative 12/02/2024 9.0 Eosinophils Relative 12/02/2024 7.1 (H) Basophils Relative 12/02/2024 0.6 Immature Grans % 12/02/2024 2.0 Neutrophils Absolute 12/02/2024 4.4 Lymphocytes Absolute 12/02/2024 1.3 Monocytes Absolute 12/02/2024 0.6 Eosinophils Absolute 12/02/2024 0.5 Basophils Absolute 12/02/2024 0.0 Immature Grans Absolute 12/02/2024 0.1 (H) SODIUM 12/02/2024 143 POTASSIUM 12/02/2024 4.6 CHLORIDE 12/02/2024 112 (H) CARBON DIOXIDE 12/02/2024 18 (L) ANION GAP 12/02/2024 13 UREA NITROGEN 12/02/2024 46 (H) CREATININE 12/02/2024 1.22 (H) GLUCOSE 12/02/2024 266 (H) CALCIUM 12/02/2024 9.8 AST (SGOT) 12/02/2024 27 ALT 12/02/2024 19 ALKALINE PHOSPHATASE 12/02/2024 63 ALBUMIN 12/02/2024 3.9 BILIRUBIN, TOTAL 12/02/2024 0.4 TOTAL PROTEIN 12/02/2024 7.6 eGFR 12/02/2024 43.6 (L) Color, Urine 12/02/2024 Light Yellow Clarity, Urine 12/02/2024 Clear pH, Urine 12/02/2024 5.5 Leukocytes, Urine 12/02/2024 250 (A) Nitrite, Urine 12/02/2024 Negative Protein, Urine 12/02/2024 Negative Glucose, Urine 12/02/2024 1,000 (A) Bilirubin, Urine 12/02/2024 Negative Ketones, Urine 12/02/2024 Negative Urobilinogen, Urine 12/02/2024 Normal Blood, Urine 12/02/2024 Negative Volume, Urine 12/02/2024 12 mL RBC, Urine 12/02/2024 0-2 WBC, Urine 12/02/2024 11-25 (A) Squamous Epithelial, Uri* 12/02/2024 Negative Bacteria, Urine 12/02/2024 Loaded (A) WBC Clumps, Urine 12/02/2024 Few (A) SPECIFIC GRAVITY OF URIN* 12/02/2024 1.009 EKG Assessment/Plan and Medical Decision Making Infectious Disease Per family patient is more confused and this is consistent with when she has hadurinary tract infections in the past. Per patient she denies symptoms and feels fine Urinalysis performed in the emergency room consistent with UTI urine culture currently pending she started on Rocephin which I will continue Every 24 hours 1 g On presentation her white blood count is normal at 6.9 She is afebrile but was tachycardic. She meets 1 SIRS criteria by being tachycardic She does have a right foot ulcer. Patient reports it is chronic and has not changed much recently this could also be a source of infection - However, she looks to be following with podiatry already for this as and outpatient and saw them recently with similar pictures SIRS Criteria Sepsis Criteria Severe Sepsis Criteria Septic Shock Criteria Must meet 2: [] Temperature > 100.4 F (38 C) or < 96.8 F (36 C) [x] HR > 90 [] RR > 20 [] WBC > 12 or < 4 or 10% bands Must be confirmed or suspected to move forward with diagnosis of sepsis. Must select at least one: [x] Bacterial Infection Confirmed or Suspected. [] Viral Infection Confirmed or Suspected. [] No infection suspected Must meet 1: [] Lactate > 2 or [] Signs of Organ Dysfunction: - SBP < 90 or MAP < 65 - Altered mental status - Creatinine > 2 or increased from baseline - Urine Output < 0.5 ml/kg/hr - Bilirubin > 2 - INR > 1.5 - Platelets < 100,000 - Acute Respiratory Failure as evidenced by new need for NIPPV or mechanical ventilation . Must meet 1: [] Lactate = or > 4 or [] SBP < 90 or MAP < 65 for at least two readings in the first hour after fluid bolus administration [] No SIRS criteria met [x] Only one SIRS criteria met (Patient does not meet criteria for SIRS) [] Sirs Criteria Met (at least 2) [x] Criteria for sepsis NOT met [] Criteria for sepsis met [] No criteria met for severe sepsis [] Criteria for severe sepsis met [] No criteria met for septic shock. [] Criteria met for septic shock. Elevated creatinine Will request bladder scan to be performed. Creatinine 1.22 may be slightly elevated than recent baseline but appears similar to values she had back in September Lab Results Component Value Date CREATININE 1.22 (H) 12/02/2024 CREATININE 1.07 09/24/2024 CREATININE 1.08 09/23/2024 CREATININE 1.04 09/22/2024 CREATININE 1.04 09/21/2024 CREATININE 1.03 09/20/2024 CREATININE 1.10 09/19/2024 CREATININE 1.41 (H) 09/18/2024 CREATININE 1.22 (H) 09/17/2024 CREATININE 1.49 (H) 09/17/2024 diabetes Hyperglycemia on presentation glucose elevated 266 At home she is on Tresiba insulin which has been reordered. She may have missed this medication recently will additionally order Tradjenta and temporarily hold her metformin will cover with sliding scale insulin and monitor her sugar Afib rvr She is on atenolol and apixiban at home Currently is in A-fib RVR after arriving from the emergency room I gave her 1 dose of iv Lopressor and restarted her atenolol continue her chronic anticoagulation with apixaban She does report feeling some occasional palpitations at home Will continue to monitor on telemetry Resume diet I discussed the need for admission with the emergency provider. -DVT prophylaxis: [] Lovenox [] Heparin [] SCDs [x] Encourage ambulation [x] Already on Anticoagulation [] Pharmocologic prophylaxis on hold to due risk bleed/procedure [] Low risk, ambulatory [] Both pharmacologic and mechanical contraindicated 45 minutes - Time spent on admission 12/03/2024 Hanna Nelson [id number] Any scheduled follow up appointments Future Appointments Date Time Provider Department Center 12/04/2024 12:45 PM Nallely Alas DPM [facility] OST None 12/24/2024 9:30 AM ALEJANDRINA Urias CNP [facility] None 01/07/2025 1:00 PM Kraig Wright MD [facility] CS None Extended Emergency Contact Information Primary Emergency Contact: Hi Nelson Relation: Son Preferred language: Burmese Metal Bumper needed? No Secondary Emergency Contact: Melba Black [facility] [place] [facility] Relation: Daughter Portions of this note may be electronically transcribed. Please forward a copy of this H&P to the primary care physician. documented in this [facility]04-24-2025 Plan of care note* Care Plan - Scott Aaron RN - 12/03/2024 1:45 AM EDT Problem: Neurosensory - Adult Goal: Achieves stable or improved neurological status 12/03/2024144 by Scott Aaron RN Outcome: Progressing 12/03/2024 0118 by Scott Aaron RN Outcome: Progressing Goal: Achieves maximal functionality and self care 12/03/2024144 by Scott Aaron RN Outcome: Progressing 12/03/2024117 by Scott Aaron RN Outcome: Progressing Problem: Respiratory - Adult Goal: Achieves optimal ventilation and oxygenation 12/03/2024144 by Scott Aaron RN Outcome: Progressing 12/03/2024 011 by Scott Aaron RN Outcome: Progressing Problem: Cardiovascular - Adult Goal: Maintains optimal cardiac output and hemodynamic stability 12/03/2024144 by Scott Aaron RN Outcome: Progressing 12/03/2024117 by Scott Aaron RN Outcome: Progressing [id number] Nurse Note* Scott Aaron RN - 12/03/2024 1:28 AM EDT Pt has arrived to [place]. Admission database completed with pt children at bedside. Pt A&O x1 at this time. Dr. Cooper notified of pt arrival via SecureChat. Pt resting in bed. Bed alarm on, call light within reach. [place] [id number] Plan of care note* Care Plan - Scott Aaron RN - 12/03/2024 1:18 AM EDT Problem: Neurosensory - Adult Goal: Achieves stable or improved neurological status Outcome: Progressing Goal: Achieves maximal functionality and self care Outcome: Progressing Problem: Respiratory - Adult Goal: Achieves optimal ventilation and oxygenation Outcome: Progressing Problem: Cardiovascular - Adult Goal: Maintains optimal cardiac output and hemodynamic stability Outcome: Progressing Problem: Skin/Tissue Integrity - Adult Goal: Skin integrity remains intact Outcome: Progressing Goal: Oral mucous membranes remain intact Outcome: Progressing [id number] Emergency department Note* Lashell Martinez RN - 12/03/2024 12:00 AM EDT Phoned [facility]. Hand off report given to KENNA Chavez. [id number] Emergency department Note* Lashell Martinez RN - 12/03/2024 12:00 AM EDT Phoned [facility]E. Hand off report given to KENNA Chavez. * Lashell Martinez RN - 12/02/2024 10:00 PM EDT Patient linda area cleansed and new adult brief placed on patient. * Lashell Martinez RN - 12/02/2024 9:50 PM EDT Patient assisted to bedpan to void. * Lashell Martinez RN - 12/02/2024 9:30 PM EDT Son and daughter to bedside. * León Marie DO - 12/02/2024 9:09 PM EDT Emergency Department Encounter [facility] ED Patient: Hanna Nelson : 1940 Date of Evaluation: 12/02/2024 ED Provider: León Marie DO Chief Complaint Chief Complaint Patient presents with Altered Mental Status MIA Nelson is a 84 y.o. female who presents to the emergency department complaining of confusion. History aided by family. Family explained that patient had moved to the ER in the last few months. She has been having issues with her diabetes and also has had recurrent urinary tract infections. Today they tried to call the patient and her phone was not picking up. They suspected that she had unplugs. They also were not able to get readings off of her continuous glucose monitor which they typically are able to do from remote site. Because of these abnormalities they went to check on the patient suspecting that she may be confused and possibly dealing with urinary tract infection. They went to patient's home and she was confused. Patient was last known to be well yesterday in the afternoon around 4 PM. She was seen by home nursing today but this was a new nurse and she is not familiar with the patient or her baseline ventilation. Patient states that she is here because "they are worried about me". She denies having any symptoms. When I asked her what her family is concerned about she is unsure. ROS: Review of Systems completed as follows: (Bold = positive, Not bold = negative) GENERAL: fevers, chills, malaise ENT: runny nose, congestion, sore throat, ear pain NEURO: weakness, numbness of tingling, headache, confusion CARDIOVASCULAR: chest pain, syncope PULMONARY: shortness of breath, cough, wheezing GASTROINTESTINAL: nausea, vomiting, abdominal pain, diarrhea, constipation, MUSCULOSKELETAL: pain GENITAL/URINARY: dysuria, hematuria, increased urinary frequency, hesitancy, flank pain SKIN: rash, lesions, wound Past History Past Medical History: Diagnosis Date Atrial fibrillation (HCC) Diabetes mellitus (HCC) Hyperlipidemia Hypertension Hypothyroidism Neuropathy Past Surgical History: Procedure Laterality Date BACK SURGERY CHOLECYSTECTOMY Social History Socioeconomic History Marital status: Tobacco Use Smoking status: Former Current packs/day: 0.00 Types: Cigarettes Quit date: 1964 Years since quittin.3 Smokeless tobacco: Never Vaping Use Vaping status: Never Used Substance and Sexual Activity Alcohol use: Not Currently Drug use: Never Social Drivers of Health Transportation Needs: No Transportation Needs (09/18/2024) PRAPARE - Transportation Lack of Transportation (Medical): No Lack of Transportation (Non-Medical): No Intimate Partner Violence: Not At Risk (09/18/2024) Humiliation, Afraid, Rape, and Kick questionnaire Fear of Current or Ex-Partner: No Emotionally Abused: No Physically Abused: No Sexually Abused: No Housing Stability: Unknown (09/18/2024) Housing Stability Vital Sign Unable to Pay for Housing in the Last Year: No Homeless in the Last Year: No I have reviewed the history above as provided by nursing notes. Medications/Allergies Previous Medications ALCOHOL SWABS (ALCOHOL PREP) 70 % PADS 1 Pad 3 times daily. AMLODIPINE (NORVASC) 5 MG TABLET Take by mouth daily. APIXABAN (ELIQUIS) 5 MG TABLET Take 5 mg by mouth 2 times daily. ATENOLOL (TENORMIN) 50 MG TABLET Take 50 mg by mouth 2 times daily. ATORVASTATIN (LIPITOR) 40 MG TABLET Take 40 mg by mouth daily. BLOOD GLUCOSE MONITORING SUPPL (BLOOD GLUCOSE MONITOR SYSTEM) W/DEVICE KIT Check glucose 3x daily FENOFIBRATE (TRIGLIDE) 160 MG TABLET Take 160 mg by mouth daily. GABAPENTIN (NEURONTIN) 300 MG CAPSULE Take 300 mg by mouth 2 times daily. GLUCOSE BLOOD TEST STRIP Use as instructed INSULIN DEGLUDEC (TRESIBA FLEXTOUCH) 100 UNIT/ML INJECTION Inject 30 Units under the skin Nightly. LANCETS Check glucose x3 daily LEVOTHYROXINE (TIROSINT) 112 MCG CAPSULE Take by mouth every morning (before breakfast). LINAGLIPTIN (TRADJENTA) 5 MG TABLET Take 1 tablet (5 mg) by mouth daily. LISINOPRIL 20 MG TABLET Take by mouth daily. METFORMIN (GLUCOPHAGE) 500 MG TABLET Take 1 tablet (500 mg) by mouth 2 times daily (with meals). OXYBUTYNIN (DITROPAN) 5 MG TABLET Take 10 mg by mouth daily. Allergies Allergen Reactions Tape Rash I have reviewed the history above as provided by nursing notes. Physical Exam ED Triage Vitals [12/02/242112] Temp Heart Rate Resp BP 36.6 C (97.9 F) 89 20 (!) 175/103 SpO2 Temp src Heart Rate Source Patient Position 99 % -- Monitor Sitting BP Location FiO2 (%) Right arm -- GENERAL: The patient appears nourished and normally developed. Vital signs as documented. EYES: PERRL. No scleral icterus or orbital trauma noted. HEENT: Mucous membranes moist. Nares patent without copious rhinorrhea. LUNGS: Lungs are clear to auscultation, without any respiratory distress. CARDIAC: Rhythm is regular. No murmur appreciated ABDOMEN: Nontender, soft, with no obvious masses, and no peritoneal signs. EXTREMITIES: Non edematous, with no obvious deformities. SKIN: Good color, with no significant rashes. No pallor. NEURO: Alert and oriented to person, place but not date. Extraocular movements intact. Pupils equalround reactive. No appreciable facial droop. There is weakness in the right upper extremity with a noted tremor. Patient is able to hold her outstretched arm against gravity but does have mild drift.Left upper extremity and bilateral lower extremities are normal. Sensation intact throughout to light touch. Sensation intact throughout. No ataxia. NIH stroke scale 1 for right upper extremity weakness. Diagnostics Labs: Results for orders placed or performed during the hospital encounter of 12/02/24 Beta Hydroxybutyrate Collection Time: 12/02/24 9:32 PM Result Value Ref Range BETA HYDROXYBUTYRATE 7.7 (H) <=2.8 mg/dL CBC auto differential Collection Time: 12/02/24 9:32 PM Result Value Ref Range Auto WBC 6.9 3.6 - 10.7 10*3/uL RBC 4.15 3.80 - 5.20 10*6/uL Hemoglobin 12.5 11.7 - 16.0 g/dL Hematocrit 36.9 35.0 - 47.0 % MCV 88.9 77.0 - 99.0 fL MCH 30.1 26.0 - 34.0 pg MCHC 33.9 30.5 - 36.0 % RDW 13.4 11.5 - 15.0 % Platelets 276 140 - 440 10*3/uL MPV 10.3 9.0 - 12.7 fL nRBC 0.0 0.0 - 2.0 /100 WBCs Neutrophils Relative 63.2 38.0 - 82.0 % Lymphocytes Relative 18.1 15.0 - 45.0 % Monocytes Relative 9.0 5.0 - 13.0 % Eosinophils Relative 7.1 (H) 0.0 - 6.0 % Basophils Relative 0.6 0.0 - 2.0 % Immature Grans % 2.0 0.0 - 2.0 % Neutrophils Absolute 4.4 1.8 - 7.5 10*3/uL Lymphocytes Absolute 1.3 1.0 - 4.3 10*3/uL Monocytes Absolute 0.6 0.0 - 0.9 10*3/uL Eosinophils Absolute 0.5 0.0 - 0.5 10*3/uL Basophils Absolute 0.0 0.0 - 0.2 10*3/uL Immature Grans Absolute 0.1 (H) <0.1 10*3/uL Comprehensive metabolic panel Collection Time: 12/02/24 9:32 PM Result Value Ref Range SODIUM 143 136 - 145 mmol/L POTASSIUM 4.6 3.5 - 5.1 mmol/L CHLORIDE 112 (H) 98 - 107 mmol/L CARBON DIOXIDE 18 (L) 23 - 31 mmol/L ANION GAP 13 3 - 13 mmol/L UREA NITROGEN 46 (H) 9 - 23 mg/dL CREATININE 1.22 (H) 0.57 - 1.11 mg/dL GLUCOSE 266 (H) 82 - 115 mg/dL CALCIUM 9.8 8.8 - 10.0 mg/dL AST (SGOT) 27 <34 U/L ALT 19 <30 U/L ALKALINE PHOSPHATASE 63 40 - 150 U/L ALBUMIN 3.9 3.4 - 4.8 g/dL BILIRUBIN, TOTAL 0.4 <1.2 mg/dL TOTAL PROTEIN 7.6 6.4 - 8.3 g/dL eGFR 43.6 (L) >60.0 mL/min/1.73m*2 Complete Urinalysis Collection Time: 12/02/24 10:01 PM Result Value Ref Range Color, Urine Light Yellow Lt. Yellow Clarity, Urine Clear Clear pH, Urine 5.5 5.0 - 8.0 pH Leukocytes, Urine 250 (A) Negative Baljit/uL Nitrite, Urine Negative Negative Protein, Urine Negative Negative mg/dL Glucose, Urine 1,000 (A) Normal (<70) mg/dL Bilirubin, Urine Negative Negative mg/dL Ketones, Urine Negative Negative mg/dL Urobilinogen, Urine Normal Normal (0-1) mg/dL Blood, Urine Negative Negative mg/dL Volume, Urine 12 mL RBC, Urine 0-2 0 - 2 /HPF WBC, Urine 11-25 (A) 0 - 5 /HPF Squamous Epithelial, Urine Negative 3 - 5 /HPF Bacteria, Urine Loaded (A) Negative /HPF WBC Clumps, Urine Few (A) Negative /HPF SPECIFIC GRAVITY OF URINE (NUMERIC) 1.009 1.005 - 1.030 Radiographs: CT head wo IV contrast Final Result No acute intracranial process. Report Dictated on Electronically Signed By: Priscila Miramontes MD Electronically Signed Date/Time: 12/02/2024 10:44 PM EDT EMERGENCY DEPARTMENT COURSE and DIFFERENTIAL DIAGNOSIS/MDM: Vitals: Vitals: 12/02/24 2113 12/02/24 2139 12/02/24 2238 12/02/24 2300 BP: (!) 175/103 (!) 174/81 (!) 187/93 (!) 178/96 BP Location: Right arm Left arm Left arm Patient Position: Sitting Sitting Sitting Pulse: 89 80 79 86 Resp: 20 12 (!) 11 14 Temp: 36.6 C (97.9 F) SpO2: 99% 99% 99% 99% Weight: 90.7 kg (200 lb) Height: 1.778 m (5' 10") The patient presented with a chief complaint of confusion. Vital signs reviewed. Concern for sepsis, urinary tract infection, delirium, dementia, intracranial hemorrhage as patient is on Eliquis. I ischemic stroke is considered but patient is outside of treatment window is for thrombolytic and thrombectomy therapies. She is on Eliquis and this would be contraindicated (although patient may not have been taking her medications over the last 2 days) due to the unclear last known well I will not order a stroke team. I checked a CT head which was personally interpreted demonstrating no intracranial hemorrhage. Labsshow grossly normal CBC without leukocytosis or anemia. Metabolic panel shows a slight drop in carbon dioxide level to 18 as well as an increase in creatinine to 1.22. Patient was treated with a liter of IV fluids. Urinalysis did show white blood cells, loaded bacteria and white blood cell clumps. For this reason I will start patient on Rocephin. Concern the patient may be delirious from her urinary tract infection. Stroke is still considered. Also discussed with family the patient has not taken her medications in 2 days and that she normally takes gabapentin. Gabapentin withdrawal is considered as patient does have a tremor, confusion. I will order her home dose of 300 mg. Consider discharge [facility] given patient's level of confusion, inability to take care of herself I do not feel this is a safe plan. I spoke with the Dr. Cooper at [facility] who agreed to accept patient for admission. Diagnoses as of 12/02/24 6713 Confusion Cystitis Right arm weakness ED Medications managed: Medications gabapentin (Neurontin) capsule 300 mg (has no administration in time range) sodium chloride 0.9 % bolus 1,000 mL (0 mL IntraVENous Stopped 12/02/242236) cefTRIAXone (Rocephin) 1,000 mg in sodium chloride 0.9 % 50 mL IVPB Mini-Bag Plus (1,000 mg IntraVENous New Bag 12/02/242248) Patients symptoms are consistent with sepsis, severe sepsis or septic shock (if yes, use ".sepsiscoremeasure") - no Final Impression 1. Confusion 2. Cystitis 3. Right arm weakness DISPOSITION admit Comment: Please note this report has been produced using speech recognition software and may contain errors related to that system including errors in grammar, punctuation, and spelling, as well as words and phrases that may be inappropriate. If there are any questions or concerns please feel free to contact the dictating provider for clarification. León Marie DO [employer] León Marie DO 12/03/24 0004 * Lashell Martinez RN - 12/02/2024 9:09 PM EDT Patient arrived via [facility] squad from home to room 6. Medics state patient's family went to check on patient today and discovered she had not been taking her medications x 2 days. Family states patient is not acting like herself A&Ox1. Patient has been having recurrent UTI's for the past couple of months and gets confused when she gets one. documented in this [facility]04-23-2025 Nurse Note* Scott Aaron RN - 12/02/2024 11:37 PM EDT Chart accessed pending transfer [facility]. [id number] Emergency department Note* Lashell Martinez RN - 12/02/2024 10:00 PM EDT Patient linda area cleansed and new adult brief placed on patient. [id number] Emergency department Note* Lashell Martinez RN - 12/02/2024 9:50 PM EDT Patient assisted to bedpan to void. [id number] Emergency department Note* Lashell Martinez RN - 12/02/2024 9:30 PM EDT Son and daughter to bedside. [id number] Emergency department Triage note* Lashell Martinez RN - 12/02/2024 9:09 PM EDT Patient arrived via [employer] squad from home to room 6. Medics state patient's family went to check on patient today and discovered she had not been taking her medications x 2 days. Family states patient is not acting like herself A&Ox1. Patient has been having recurrent UTI's for the past couple of months and gets confused when she gets one. [id number] Physician Emergency department Note* León Marie DO - 12/02/2024 9:09 PM EDT Emergency Department Encounter [facility] ED Patient: Hanna Nelson : 1940 Date of Evaluation: 12/02/2024 ED Provider: León Marie DO Chief Complaint Chief Complaint Patient presents with Altered Mental Status MIA Nelson is a 84 y.o. female who presents to the emergency department complaining of confusion. History aided by family. Family explained that patient had moved to the ER in the last few months. She has been having issues with her diabetes and also has had recurrent urinary tract infections. Today they tried to call the patient and her phone was not picking up. They suspected that she had unplugs. They also were not able to get readings off of her continuous glucose monitor which they typically are able to do from remote site. Because of these abnormalities they went to check on the patient suspecting that she may be confused and possibly dealing with urinary tract infection. They went to patient's home and she was confused. Patient was last known to be well yesterday in the afternoon around 4 PM. She was seen by home nursing today but this was a new nurse and she is not familiar with the patient or her baseline ventilation. Patient states that she is here because "they are worried about me". She denies having any symptoms. When I asked her what her family is concerned about she is unsure. ROS: Review of Systems completed as follows: (Bold = positive, Not bold = negative) GENERAL: fevers, chills, malaise ENT: runny nose, congestion, sore throat, ear pain NEURO: weakness, numbness of tingling, headache, confusion CARDIOVASCULAR: chest pain, syncope PULMONARY: shortness of breath, cough, wheezing GASTROINTESTINAL: nausea, vomiting, abdominal pain, diarrhea, constipation, MUSCULOSKELETAL: pain GENITAL/URINARY: dysuria, hematuria, increased urinary frequency, hesitancy, flank pain SKIN: rash, lesions, wound Past History Past Medical History: Diagnosis Date Atrial fibrillation (HCC) Diabetes mellitus (HCC) Hyperlipidemia Hypertension Hypothyroidism Neuropathy Past Surgical History: Procedure Laterality Date BACK SURGERY CHOLECYSTECTOMY Social History Socioeconomic History Marital status: Tobacco Use Smoking status: Former Current packs/day: 0.00 Types: Cigarettes Quit date: 1964 Years since quittin.3 Smokeless tobacco: Never Vaping Use Vaping status: Never Used Substance and Sexual Activity Alcohol use: Not Currently Drug use: Never Social Drivers of Health Transportation Needs: No Transportation Needs (09/18/2024) PRAPARE - Transportation Lack of Transportation (Medical): No Lack of Transportation (Non-Medical): No Intimate Partner Violence: Not At Risk (09/18/2024) Humiliation, Afraid, Rape, and Kick questionnaire Fear of Current or Ex-Partner: No Emotionally Abused: No Physically Abused: No Sexually Abused: No Housing Stability: Unknown (09/18/2024) Housing Stability Vital Sign Unable to Pay for Housing in the Last Year: No Homeless in the Last Year: No I have reviewed the history above as provided by nursing notes. Medications/Allergies Previous Medications ALCOHOL SWABS (ALCOHOL PREP) 70 % PADS 1 Pad 3 times daily. AMLODIPINE (NORVASC) 5 MG TABLET Take by mouth daily. APIXABAN (ELIQUIS) 5 MG TABLET Take 5 mg by mouth 2 times daily. ATENOLOL (TENORMIN) 50 MG TABLET Take 50 mg by mouth 2 times daily. ATORVASTATIN (LIPITOR) 40 MG TABLET Take 40 mg by mouth daily. BLOOD GLUCOSE MONITORING SUPPL (BLOOD GLUCOSE MONITOR SYSTEM) W/DEVICE KIT Check glucose 3x daily FENOFIBRATE (TRIGLIDE) 160 MG TABLET Take 160 mg by mouth daily. GABAPENTIN (NEURONTIN) 300 MG CAPSULE Take 300 mg by mouth 2 times daily. GLUCOSE BLOOD TEST STRIP Use as instructed INSULIN DEGLUDEC (TRESIBA FLEXTOUCH) 100 UNIT/ML INJECTION Inject 30 Units under the skin Nightly. LANCETS Check glucose x3 daily LEVOTHYROXINE (TIROSINT) 112 MCG CAPSULE Take by mouth every morning (before breakfast). LINAGLIPTIN (TRADJENTA) 5 MG TABLET Take 1 tablet (5 mg) by mouth daily. LISINOPRIL 20 MG TABLET Take by mouth daily. METFORMIN (GLUCOPHAGE) 500 MG TABLET Take 1 tablet (500 mg) by mouth 2 times daily (with meals). OXYBUTYNIN (DITROPAN) 5 MG TABLET Take 10 mg by mouth daily. Allergies Allergen Reactions Tape Rash I have reviewed the history above as provided by nursing notes. Physical Exam ED Triage Vitals [12/02/242112] Temp Heart Rate Resp BP 36.6 C (97.9 F) 89 20 (!) 175/103 SpO2 Temp src Heart Rate Source Patient Position 99 % -- Monitor Sitting BP Location FiO2 (%) Right arm -- GENERAL: The patient appears nourished and normally developed. Vital signs as documented. EYES: PERRL. No scleral icterus or orbital trauma noted. HEENT: Mucous membranes moist. Nares patent without copious rhinorrhea. LUNGS: Lungs are clear to auscultation, without any respiratory distress. CARDIAC: Rhythm is regular. No murmur appreciated ABDOMEN: Nontender, soft, with no obvious masses, and no peritoneal signs. EXTREMITIES: Non edematous, with no obvious deformities. SKIN: Good color, with no significant rashes. No pallor. NEURO: Alert and oriented to person, place but not date. Extraocular movements intact. Pupils equalround reactive. No appreciable facial droop. There is weakness in the right upper extremity with a noted tremor. Patient is able to hold her outstretched arm against gravity but does have mild drift.Left upper extremity and bilateral lower extremities are normal. Sensation intact throughout to light touch. Sensation intact throughout. No ataxia. NIH stroke scale 1 for right upper extremity weakness. Diagnostics Labs: Results for orders placed or performed during the hospital encounter of 12/02/24 Beta Hydroxybutyrate Collection Time: 12/02/24 9:32 PM Result Value Ref Range BETA HYDROXYBUTYRATE 7.7 (H) <=2.8 mg/dL CBC auto differential Collection Time: 12/02/24 9:32 PM Result Value Ref Range Auto WBC 6.9 3.6 - 10.7 10*3/uL RBC 4.15 3.80 - 5.20 10*6/uL Hemoglobin 12.5 11.7 - 16.0 g/dL Hematocrit 36.9 35.0 - 47.0 % MCV 88.9 77.0 - 99.0 fL MCH 30.1 26.0 - 34.0 pg MCHC 33.9 30.5 - 36.0 % RDW 13.4 11.5 - 15.0 % Platelets 276 140 - 440 10*3/uL MPV 10.3 9.0 - 12.7 fL nRBC 0.0 0.0 - 2.0 /100 WBCs Neutrophils Relative 63.2 38.0 - 82.0 % Lymphocytes Relative 18.1 15.0 - 45.0 % Monocytes Relative 9.0 5.0 - 13.0 % Eosinophils Relative 7.1 (H) 0.0 - 6.0 % Basophils Relative 0.6 0.0 - 2.0 % Immature Grans % 2.0 0.0 - 2.0 % Neutrophils Absolute 4.4 1.8 - 7.5 10*3/uL Lymphocytes Absolute 1.3 1.0 - 4.3 10*3/uL Monocytes Absolute 0.6 0.0 - 0.9 10*3/uL Eosinophils Absolute 0.5 0.0 - 0.5 10*3/uL Basophils Absolute 0.0 0.0 - 0.2 10*3/uL Immature Grans Absolute 0.1 (H) <0.1 10*3/uL Comprehensive metabolic panel Collection Time: 12/02/24 9:32 PM Result Value Ref Range SODIUM 143 136 - 145 mmol/L POTASSIUM 4.6 3.5 - 5.1 mmol/L CHLORIDE 112 (H) 98 - 107 mmol/L CARBON DIOXIDE 18 (L) 23 - 31 mmol/L ANION GAP 13 3 - 13 mmol/L UREA NITROGEN 46 (H) 9 - 23 mg/dL CREATININE 1.22 (H) 0.57 - 1.11 mg/dL GLUCOSE 266 (H) 82 - 115 mg/dL CALCIUM 9.8 8.8 - 10.0 mg/dL AST (SGOT) 27 <34 U/L ALT 19 <30 U/L ALKALINE PHOSPHATASE 63 40 - 150 U/L ALBUMIN 3.9 3.4 - 4.8 g/dL BILIRUBIN, TOTAL 0.4 <1.2 mg/dL TOTAL PROTEIN 7.6 6.4 - 8.3 g/dL eGFR 43.6 (L) >60.0 mL/min/1.73m*2 Complete Urinalysis Collection Time: 12/02/24 10:01 PM Result Value Ref Range Color, Urine Light Yellow Lt. Yellow Clarity, Urine Clear Clear pH, Urine 5.5 5.0 - 8.0 pH Leukocytes, Urine 250 (A) Negative Baljit/uL Nitrite, Urine Negative Negative Protein, Urine Negative Negative mg/dL Glucose, Urine 1,000 (A) Normal (<70) mg/dL Bilirubin, Urine Negative Negative mg/dL Ketones, Urine Negative Negative mg/dL Urobilinogen, Urine Normal Normal (0-1) mg/dL Blood, Urine Negative Negative mg/dL Volume, Urine 12 mL RBC, Urine 0-2 0 - 2 /HPF WBC, Urine 11-25 (A) 0 - 5 /HPF Squamous Epithelial, Urine Negative 3 - 5 /HPF Bacteria, Urine Loaded (A) Negative /HPF WBC Clumps, Urine Few (A) Negative /HPF SPECIFIC GRAVITY OF URINE (NUMERIC) 1.009 1.005 - 1.030 Radiographs: CT head wo IV contrast Final Result No acute intracranial process. Report Dictated on Electronically Signed By: Priscila Miramontes MD Electronically Signed Date/Time: 12/02/2024 10:44 PM EDT EMERGENCY DEPARTMENT COURSE and DIFFERENTIAL DIAGNOSIS/MDM: Vitals: Vitals: 12/02/24 2113 12/02/24 2139 12/02/24 2238 12/02/24 2300 BP: (!) 175/103 (!) 174/81 (!) 187/93 (!) 178/96 BP Location: Right arm Left arm Left arm Patient Position: Sitting Sitting Sitting Pulse: 89 80 79 86 Resp: 20 12 (!) 11 14 Temp: 36.6 C (97.9 F) SpO2: 99% 99% 99% 99% Weight: 90.7 kg (200 lb) Height: 1.778 m (5' 10") The patient presented with a chief complaint of confusion. Vital signs reviewed. Concern for sepsis, urinary tract infection, delirium, dementia, intracranial hemorrhage as patient is on Eliquis. I ischemic stroke is considered but patient is outside of treatment window is for thrombolytic and thrombectomy therapies. She is on Eliquis and this would be contraindicated (although patient may not have been taking her medications over the last 2 days) due to the unclear last known well I will not order a stroke team. I checked a CT head which was personally interpreted demonstrating no intracranial hemorrhage. Labsshow grossly normal CBC without leukocytosis or anemia. Metabolic panel shows a slight drop in carbon dioxide level to 18 as well as an increase in creatinine to 1.22. Patient was treated with a liter of IV fluids. Urinalysis did show white blood cells, loaded bacteria and white blood cell clumps. For this reason I will start patient on Rocephin. Concern the patient may be delirious from her urinary tract infection. Stroke is still considered. Also discussed with family the patient has not taken her medications in 2 days and that she normally takes gabapentin. Gabapentin withdrawal is considered as patient does have a tremor, confusion. I will order her home dose of 300 mg. Consider discharge [facility] given patient's level of confusion, inability to take care of herself I do not feel this is a safe plan. I spoke with the Dr. Cooper at [facility] who agreed to accept patient for admission. Diagnoses as of 12/02/24 9293 Confusion Cystitis Right arm weakness ED Medications managed: Medications gabapentin (Neurontin) capsule 300 mg (has no administration in time range) sodium chloride 0.9 % bolus 1,000 mL (0 mL IntraVENous Stopped 12/02/242236) cefTRIAXone (Rocephin) 1,000 mg in sodium chloride 0.9 % 50 mL IVPB Mini-Bag Plus (1,000 mg IntraVENous New Bag 12/02/242248) Patients symptoms are consistent with sepsis, severe sepsis or septic shock (if yes, use ".sepsiscoremeasure") - no Final Impression 1. Confusion 2. Cystitis 3. Right arm weakness DISPOSITION admit Comment: Please note this report has been produced using speech recognition software and may contain errors related to that system including errors in grammar, punctuation, and spelling, as well as words and phrases that may be inappropriate. If there are any questions or concerns please feel free to contact the dictating provider for clarification. 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 [facility] Wound Care Consult, Progress, and Procedure Note Hanna Nelson AGE: 84 y.o. GENDER: female : 1940 EPISODE DATE: Subjective: Patient presents for evaluation of wound HISTORY of PRESENT ILLNESS HPI Hanna Nelson is a 84 y.o. female who presents today for wound/ulcer evaluation. History of Wound Context: patient seen in coverage today. DFU right foot improving, no SOI. Patientand family feel wound is getting better. Denies any needs. Patient to f/up with Podiatry in 1 week. Interval History: Patient presents today for follow up on wound/ulcer's progression. The patient is currently not on antibiotics. Current dressing care includes see RN notes Contributing Factors: DM and neuropathy PAST MEDICAL HISTORY Past Medical History: Diagnosis Date Atrial fibrillation (HCC) Diabetes mellitus (HCC) Hyperlipidemia Hypertension Hypothyroidism Neuropathy PAST SURGICAL HISTORY Past Surgical History: Procedure Laterality Date BACK SURGERY CHOLECYSTECTOMY FAMILY HISTORY No family history on file. SOCIAL HISTORY Social History Tobacco Use Smoking status: Former Current packs/day: 0.00 Types: Cigarettes Quit date: 1964 Years since quittin.3 Smokeless tobacco: Never Vaping Use Vaping status: Never Used Substance Use Topics Alcohol use: Not Currently Drug use: Never ALLERGIES Allergies Allergen Reactions Tape Rash MEDICATIONS Current Outpatient Medications on File Prior to Encounter Medication Sig Dispense Refill Alcohol Swabs (Alcohol Prep) 70 % pads 1 Pad 3 times daily. 200 each 2 amLODIPine (Norvasc) 5 MG tablet Take by mouth daily. apixaban (Eliquis) 5 MG tablet Take 5 mg by mouth 2 times daily. atenolol (Tenormin) 50 MG tablet Take 50 mg by mouth 2 times daily. atorvastatin (Lipitor) 40 MG tablet Take 40 mg by mouth daily. Blood Glucose Monitoring Suppl (Blood Glucose Monitor System) w/Device kit Check glucose 3x daily 1kit 0 fenofibrate (Triglide) 160 MG tablet Take 160 mg by mouth daily. gabapentin (Neurontin) 300 MG capsule Take 300 mg by mouth 2 times daily. glucose blood test strip Use as instructed 100 each 0 insulin degludec (Tresiba FlexTouch) 100 UNIT/ML injection Inject 30 Units under the skin Nightly. 30 mL 3 Lancets Check glucose x3 daily 100 each 3 levothyroxine (Tirosint) 112 MCG capsule Take by mouth every morning (before breakfast). linaGLIPtin (Tradjenta) 5 MG tablet Take 1 tablet (5 mg) by mouth daily. 30 tablet 3 lisinopril 20 MG tablet Take by mouth daily. metFORMIN (Glucophage) 500 MG tablet Take 1 tablet (500 mg) by mouth 2 times daily (with meals). 60tablet 6 oxybutynin (Ditropan) 5 MG tablet Take 10 mg by mouth daily. Current Facility-Administered Medications on File Prior to Encounter Medication Dose Route Frequency Provider Last Rate Last Admin lidocaine (Uro-Jet) 2 % gel Topical PRN Marielos Blair, 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 - NUCLEAR PLANT INSTRUMENT TECHNICIAN REVIEW OF SYSTEMS Patient denies CP,SOB, tolerating diet NO F/C otherwise negative ROS accept noted in HPI Objective: BP (!) 89/41 Pulse 59 Temp (!) 35.8 C (96.5 F) Resp 18 Wt Readings from Last 3 Encounters: 10/15/24 199 lb 6.4 oz (90.4 kg) 09/17/24 200 lb (90.7 kg) PHYSICAL EXAM Visit Vitals BP (!) 89/41 Pulse 59 Temp (!) 35.8 C (96.5 F) Resp 18 GEN: NAD Alert appears stated age PULM: Breathing without difficulty CV: Stable GI: Soft ND NT tolerating diet EXT: see wound notes, vascular intact. Wound bed with large pink granular tissue, linda wound tissuewith soft callus, no evidence of cellulitis Wound Assessment: Wound/Incision 09/18/24 Diabetic Ulcer Foot Right (Active) Wound Image 11/27/24 0856 Site Assessment Granulation 11/27/24 0856 Linda-Wound Assessment Moist ;[place];Pale 11/27/24 0856 Wound Length (cm) 0.2 cm 11/27/24 0856 Wound Width (cm) 0.2 cm 11/27/24 0856 Wound Surface Area (cm^2) 0.04 cm^2 11/27/24 0856 Wound Depth (cm) 0.1 cm 11/27/24 0856 Wound Volume (cm^3) 0.004 cm^3 11/27/24 0856 Wound Healing % 98 11/27/24 0856 Drainage Description Serosanguineous 11/27/24 0856 Odor None 11/27/24 0856 Drainage Amount Small 11/27/24 0856 Treatments Cleansed 11/27/24 0856 Primary Dressing Collagen;Xeroform 11/20/24 1253 Secondary Dressing 4x4 gauze 11/13/24 1359 Secured with Medfix tape 11/20/24 1253 Dressing Status New dressing 11/13/24 1359 Undermining 0.4 cm 10/09/24 1200 Undermining Clock Position of Wound 9;10;11;12 10/09/24 1200 LABS Lab Results Component Value Date WBC 6.7 09/24/2024 HGB 11.7 09/24/2024 HCT 36.8 09/24/2024 MCV 96.8 09/24/2024 PLT 215 09/24/2024 Lab Results Component Value Date NA 139 09/24/2024 K 4.4 09/24/2024 CL 111 (H) 09/24/2024 CO2 19 (L) 09/24/2024 BUN 35 (H) 09/24/2024 CREATININE 1.07 09/24/2024 No results found for: "PROTIME", "INR" No results found for: "PREALBUMIN" No components found for: "LABALBU" No results found for: "SEDRATE" Assessment: Wound: see below Ulcer: Non-Pressure ulcer, muscle necrosis", Procedure Note Indications: Based on my examination of this patient's wound(s)/ulcer(s) today, debridement is required to promote healing and evaluate the extent healing. Debridement Wound/Incision 09/18/24 Diabetic Ulcer Foot Right Performed by: ALEJANDRINA Ramesh CNP Authorized by: ALEJANDRINA Ramesh CNP Consent Consent obtained? verbal Consent given by: patient Risks discussed? procedural risks discussed Time out called at 11/27/2024 9:21 AM Immediately prior to the procedure a time out was called and the performing provider verified the correct patient, procedure, equipment, technical support 1 software engineer, and site/side marked as required. Debridement Details Performed by: JUNIOR PROGRAMMER Debridement type: surgical Level of debridement: subcutaneous tissue Pain control: lidocaine 2% Pain control administration type: topical Pre-debridement measurements Length (cm): 0.2 Width (cm): 0.2 Depth (cm): 0.1 Surface Area (cm^2): 0.04 Post-debridement measurements Length (cm): 0.2 Width (cm): 0.2 Depth (cm): 0.1 Percent debrided: 100% Surface Area (cm^2): 0.04 Area Debrided (cm^2): 0.04 Volume (cm^3): 0 Tissue and other material debrided: subcutaneous tissue Devitalized tissue debrided: biofilm and fibrin Instrument(s) utilized: curette Bleeding: small Hemostasis obtained with: pressure Procedural pain (0-10): 0 Post-procedural pain: 0 Response to treatment: procedure was tolerated well Plan: Patient examined and evaluated Patient understands all that has been explained to her and wishes to proceed with current treatment. Patient understands all risks, benefits, procedures, linda-operative management, and possible complications. All questions answered and no guarantees made or implied. Treatment: No orders of the defined types were placed in this encounter. -chart reviewed -collagen, xeroform, offload pad, dry dressing as directed -avoid pressure to wound site -nutrition support -f/up 1 week or sooner -cll if problems/concerns Written patient dismissal instructions given to patient and signed by patient or POA. 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 [facility] Wound Care Consult, Progress, and Procedure Note Hanna Nelson AGE: 84 y.o. GENDER: female : 1940 EPISODE DATE: Subjective: Patient presents for evaluation of wound HISTORY of PRESENT ILLNESS HPI Hanna Nelson is a 84 y.o. female who presents today for wound/ulcer evaluation. History of Wound Context: patient seen in coverage today. DFU right foot improving, no SOI. Patientand family feel wound is getting better. Denies any needs. Patient to f/up with Podiatry in 1 week. Interval History: Patient presents today for follow up on wound/ulcer's progression. The patient is currently not on antibiotics. Current dressing care includes see RN notes Contributing Factors: DM and neuropathy PAST MEDICAL HISTORY Past Medical History: Diagnosis Date Atrial fibrillation (HCC) Diabetes mellitus (HCC) Hyperlipidemia Hypertension Hypothyroidism Neuropathy PAST SURGICAL HISTORY Past Surgical History: Procedure Laterality Date BACK SURGERY CHOLECYSTECTOMY FAMILY HISTORY No family history on file. SOCIAL HISTORY Social History Tobacco Use Smoking status: Former Current packs/day: 0.00 Types: Cigarettes Quit date: 1964 Years since quittin.3 Smokeless tobacco: Never Vaping Use Vaping status: Never Used Substance Use Topics Alcohol use: Not Currently Drug use: Never ALLERGIES Allergies Allergen Reactions Tape Rash MEDICATIONS Current Outpatient Medications on File Prior to Encounter Medication Sig Dispense Refill Alcohol Swabs (Alcohol Prep) 70 % pads 1 Pad 3 times daily. 200 each 2 amLODIPine (Norvasc) 5 MG tablet Take by mouth daily. apixaban (Eliquis) 5 MG tablet Take 5 mg by mouth 2 times daily. atenolol (Tenormin) 50 MG tablet Take 50 mg by mouth 2 times daily. atorvastatin (Lipitor) 40 MG tablet Take 40 mg by mouth daily. Blood Glucose Monitoring Suppl (Blood Glucose Monitor System) w/Device kit Check glucose 3x daily 1kit 0 fenofibrate (Triglide) 160 MG tablet Take 160 mg by mouth daily. gabapentin (Neurontin) 300 MG capsule Take 300 mg by mouth 2 times daily. glucose blood test strip Use as instructed 100 each 0 insulin degludec (Tresiba FlexTouch) 100 UNIT/ML injection Inject 30 Units under the skin Nightly. 30 mL 3 Lancets Check glucose x3 daily 100 each 3 levothyroxine (Tirosint) 112 MCG capsule Take by mouth every morning (before breakfast). linaGLIPtin (Tradjenta) 5 MG tablet Take 1 tablet (5 mg) by mouth daily. 30 tablet 3 lisinopril 20 MG tablet Take by mouth daily. metFORMIN (Glucophage) 500 MG tablet Take 1 tablet (500 mg) by mouth 2 times daily (with meals). 60tablet 6 oxybutynin (Ditropan) 5 MG tablet Take 10 mg by mouth daily. Current Facility-Administered Medications on File Prior to Encounter Medication Dose Route Frequency Provider Last Rate Last Admin lidocaine (Uro-Jet) 2 % gel Topical PRN Marielos Blair, 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 - NUCLEAR PLANT INSTRUMENT TECHNICIAN REVIEW OF SYSTEMS Patient denies CP,SOB, tolerating diet NO F/C otherwise negative ROS accept noted in HPI Objective: BP (!) 89/41 Pulse 59 Temp (!) 35.8 C (96.5 F) Resp 18 Wt Readings from Last 3 Encounters: 10/15/24 199 lb 6.4 oz (90.4 kg) 09/17/24 200 lb (90.7 kg) PHYSICAL EXAM Visit Vitals BP (!) 89/41 Pulse 59 Temp (!) 35.8 C (96.5 F) Resp 18 GEN: NAD Alert appears stated age PULM: Breathing without difficulty CV: Stable GI: Soft ND NT tolerating diet EXT: see wound notes, vascular intact. Wound bed with large pink granular tissue, linda wound tissuewith soft callus, no evidence of cellulitis Wound Assessment: Wound/Incision 09/18/24 Diabetic Ulcer Foot Right (Active) Wound Image 11/27/24 0856 Site Assessment Granulation 11/27/24 0856 Linda-Wound Assessment Moist ;[place];Pale 11/27/24 0856 Wound Length (cm) 0.2 cm 11/27/24 0856 Wound Width (cm) 0.2 cm 11/27/24 0856 Wound Surface Area (cm^2) 0.04 cm^2 11/27/24 0856 Wound Depth (cm) 0.1 cm 11/27/24 0856 Wound Volume (cm^3) 0.004 cm^3 11/27/24 0856 Wound Healing % 98 11/27/24 0856 Drainage Description Serosanguineous 11/27/24 0856 Odor None 11/27/24 0856 Drainage Amount Small 11/27/24 0856 Treatments Cleansed 11/27/24 0856 Primary Dressing Collagen;Xeroform 11/20/24 1253 Secondary Dressing 4x4 gauze 11/13/24 1359 Secured with Medfix tape 11/20/24 1253 Dressing Status New dressing 11/13/24 1359 Undermining 0.4 cm 10/09/24 1200 Undermining Clock Position of Wound 9;10;11;12 10/09/24 1200 LABS Lab Results Component Value Date WBC 6.7 09/24/2024 HGB 11.7 09/24/2024 HCT 36.8 09/24/2024 MCV 96.8 09/24/2024 PLT 215 09/24/2024 Lab Results Component Value Date NA 139 09/24/2024 K 4.4 09/24/2024 CL 111 (H) 09/24/2024 CO2 19 (L) 09/24/2024 BUN 35 (H) 09/24/2024 CREATININE 1.07 09/24/2024 No results found for: "PROTIME", "INR" No results found for: "PREALBUMIN" No components found for: "LABALBU" No results found for: "SEDRATE" Assessment: Wound: see below Ulcer: Non-Pressure ulcer, muscle necrosis", Procedure Note Indications: Based on my examination of this patient's wound(s)/ulcer(s) today, debridement is required to promote healing and evaluate the extent healing. Debridement Wound/Incision 09/18/24 Diabetic Ulcer Foot Right Performed by: ALEJANDRINA Ramesh CNP Authorized by: ALEJANDRINA Ramesh CNP Consent Consent obtained? verbal Consent given by: patient Risks discussed? procedural risks discussed Time out called at 11/27/2024 9:21 AM Immediately prior to the procedure a time out was called and the performing provider verified the correct patient, procedure, equipment, technical support 1 software engineer, and site/side marked as required. Debridement Details Performed by: JUNIOR PROGRAMMER Debridement type: surgical Level of debridement: subcutaneous tissue Pain control: lidocaine 2% Pain control administration type: topical Pre-debridement measurements Length (cm): 0.2 Width (cm): 0.2 Depth (cm): 0.1 Surface Area (cm^2): 0.04 Post-debridement measurements Length (cm): 0.2 Width (cm): 0.2 Depth (cm): 0.1 Percent debrided: 100% Surface Area (cm^2): 0.04 Area Debrided (cm^2): 0.04 Volume (cm^3): 0 Tissue and other material debrided: subcutaneous tissue Devitalized tissue debrided: biofilm and fibrin Instrument(s) utilized: curette Bleeding: small Hemostasis obtained with: pressure Procedural pain (0-10): 0 Post-procedural pain: 0 Response to treatment: procedure was tolerated well Plan: Patient examined and evaluated Patient understands all that has been explained to her and wishes to proceed with current treatment. Patient understands all risks, benefits, procedures, linda-operative management, and possible complications. All questions answered and no guarantees made or implied. Treatment: No orders of the defined types were placed in this encounter. -chart reviewed -collagen, xeroform, offload pad, dry dressing as directed -avoid pressure to wound site -nutrition support -f/up 1 week or sooner -cll if problems/concerns Written patient dismissal instructions given to patient and signed by patient or POA. documented in this [facility]04-18-2025 Hospital Discharge instructions* Patient Instructions* Liss Acevedo RN - 11/27/2024 8:45 AM EDT Follow-up Appointments: Return Appointment in 2 weeks. Call [place] [facility] at [phone], [facility] at [phone], or [facility] at [phone]. Edema/Swelling: Avoid standing for long periods of time, elevate legs to the level of the heart or above 30 minutesdaily and/or when sitting. Offloading: Avoid pressure to wound site as often as possible. ANY AMOUNT OF PRESSURE WILL DELAY WOUND HEALING. Offloading wound site is extremely important to assist in wound healing. Avoid friction and shearing, do not scoot or slide. Lift your weight up when repositioning. Bathing/Showering: OK to shower but do not soak or submerge wound. Use an antibacterial soap, such as dial to cleanse wound area once the rest of the body has been washed. Nutrition: Follow diet per physician instructions such as increasing protein intake to promote wound healing 100 gram of protein a day If diabetic-Monitor blood sugars to help with wound healing. High blood sugars can affect wound healing. Wound Care: R Plantar foot (x3 weekly) Keep insert on to help with offloading Cleanse wound with mild soap and water and pat dry Apply Collagen to wound bed Apply Xeroform over Collagen Gauze Apply Medifix tape Signs and symptoms of wound infection: - fever - flu-like symptoms - pus or unusual drainage - foul odor - worsening of wound - spreading redness or warmth around the wound - increased pain - increasing and/or uncontrolled blood sugar for diabetics Please call the wound center at [phone] if you are experiencing this. If we are closed and youare unable to reach us in person please go to the ER documented in this [facility]04-18-2025 Hospital Discharge instructions* Patient Instructions* Liss Acevedo RN - 11/27/2024 8:45 AM EDT Follow-up Appointments: Return Appointment in 2 weeks. Call [place] [facility] at [phone], [facility] at [phone], or [facility] at [phone]. Edema/Swelling: Avoid standing for long periods of time, elevate legs to the level of the heart or above 30 minutesdaily and/or when sitting. Offloading: Avoid pressure to wound site as often as possible. ANY AMOUNT OF PRESSURE WILL DELAY WOUND HEALING. Offloading wound site is extremely important to assist in wound healing. Avoid friction and shearing, do not scoot or slide. Lift your weight up when repositioning. Bathing/Showering: OK to shower but do not soak or submerge wound. Use an antibacterial soap, such as dial to cleanse wound area once the rest of the body has been washed. Nutrition: Follow diet per physician instructions such as increasing protein intake to promote wound healing 100 gram of protein a day If diabetic-Monitor blood sugars to help with wound healing. High blood sugars can affect wound healing. Wound Care: R Plantar foot (x3 weekly) Keep insert on to help with offloading Cleanse wound with mild soap and water and pat dry Apply Collagen to wound bed Apply Xeroform over Collagen Gauze Apply Medifix tape Signs and symptoms of wound infection: - fever - flu-like symptoms - pus or unusual drainage - foul odor - worsening of wound - spreading redness or warmth around the wound - increased pain - increasing and/or uncontrolled blood sugar for diabetics Please call the wound center at [phone] if you are experiencing this. If we are closed and youare unable to reach us in person please go to the ER documented in this [place] [id number] Miscellaneous Notes* Addendum Note - Liss Acevedo RN - 11/27/2024 8:45 AM EDTEncounter addended by: Liss Acevedo RN on: 11/27/2024 9:54 AM Actions taken: Flowsheet accepted documented in this [place] [id number] Miscellaneous Notes* Addendum Note - Liss Acevedo RN - 11/27/2024 8:45 AM EDTEncounter addended by: Liss Acevedo RN on: 11/27/2024 9:54 AM Actions taken: Flowsheet accepted documented in this [place] [id number] Note* Addendum Note - Liss Acevedo RN - 11/27/2024 8:45 AM EDTEncounter addended by: Liss Acevedo RN on: 11/27/2024 9:54 AM Actions taken: Flowsheet accepted [place] [id number] Note* Addendum Note - Liss Acevedo RN - 11/27/2024 8:45 AM EDTEncounter addended by: Liss Acevedo RN on: 11/27/2024 9:54 AM Actions taken: Flowsheet [id number] Note* Addendum Note - Liss Acevedo RN - 11/27/2024 8:45 AM EDTEncounter addended by: Liss Acevedo RN on: 11/27/2024 9:54 AM Actions taken: Flowsheet accepted [id number] Note* Addendum Note - Liss Acevedo RN - 11/27/2024 8:45 AM EDTEncounter addended by: Liss Acevedo RN on: 11/27/2024 9:54 AM Actions taken: [id number]* Addendum Note - Liss Acevedo RN - 11/27/2024 8:45 AM EDTEncounter addended by: Liss Acevedo RN on: 11/27/2024 9:54 AM Actions taken: Flowsheet accepted [id number] History of Present illness Narrative* Nallely Alas DPM - 11/20/2024 12:45 PM EDT Images from the original note were not included. Wound Care Visit CHIEF COMPLAINT: Chief Complaint Patient presents with Wound Check Follow-up ulceration right foot. No new complaints. Patient is waiting on her AFO and diabetic shoes. HISTORY OF PRESENT ILLNESS: The patient is a 84 y.o. female with significant past medical history of Past Medical History: Diagnosis Date Atrial fibrillation (HCC) Diabetes mellitus (HCC) Hyperlipidemia Hypertension Hypothyroidism Neuropathy MEDICal History: Past Medical History: Diagnosis Date Atrial fibrillation (HCC) Diabetes mellitus (HCC) Hyperlipidemia Hypertension Hypothyroidism Neuropathy Past Surgical History: Past Surgical History: Procedure Laterality Date BACK SURGERY CHOLECYSTECTOMY Current Medications: Current Outpatient Medications: Alcohol Swabs (Alcohol Prep) 70 % pads, 1 Pad 3 times daily., Disp: 200 each, Rfl: 2 amLODIPine (Norvasc) 5 MG tablet, Take by mouth daily., Disp: , Rfl: apixaban (Eliquis) 5 MG tablet, Take 5 mg by mouth 2 times daily., Disp: , Rfl: atenolol (Tenormin) 50 MG tablet, Take 50 mg by mouth 2 times daily., Disp: , Rfl: atorvastatin (Lipitor) 40 MG tablet, Take 40 mg by mouth daily., Disp: , Rfl: Blood Glucose Monitoring Suppl (Blood Glucose Monitor System) w/Device kit, Check glucose 3x daily,Disp: 1 kit, Rfl: 0 fenofibrate (Triglide) 160 MG tablet, Take 160 mg by mouth daily., Disp: , Rfl: gabapentin (Neurontin) 300 MG capsule, Take 300 mg by mouth 2 times daily., Disp: , Rfl: glucose blood test strip, Use as instructed, Disp: 100 each, Rfl: 0 insulin degludec (Tresiba FlexTouch) 100 UNIT/ML injection, Inject 30 Units under the skin Nightly., Disp: 30 mL, Rfl: 3 Lancets, Check glucose x3 daily, Disp: 100 each, Rfl: 3 levothyroxine (Tirosint) 112 MCG capsule, Take by mouth every morning (before breakfast)., Disp: , Rfl: linaGLIPtin (Tradjenta) 5 MG tablet, Take 1 tablet (5 mg) by mouth daily., Disp: 30 tablet, Rfl: 3 lisinopril 20 MG tablet, Take by mouth daily., Disp: , Rfl: metFORMIN (Glucophage) 500 MG tablet, Take 1 tablet (500 mg) by mouth 2 times daily (with meals). (Patient taking differently: Take 1,000 mg by mouth 2 times daily (with meals).), Disp: 60 tablet, Rfl: 6 oxybutynin (Ditropan) 5 MG tablet, Take 10 mg by mouth daily., Disp: , Rfl: Current Facility-Administered Medications: lidocaine (Uro-Jet) 2 % gel, , Topical, PRN, Marielos Blair, 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 - NUCLEAR PLANT INSTRUMENT TECHNICIAN Allergies: Allergies Allergen Reactions Tape Rash Social History: Social History Socioeconomic History Marital status: Spouse name: Not on file Number of children: Not on file Years of education: Not on file Highest education level: Not on file Occupational History Not on file Tobacco Use Smoking status: Former Current packs/day: 0.00 Types: Cigarettes Quit date: 1964 Years since quittin.3 Smokeless tobacco: Never Vaping Use Vaping status: Never Used Substance and Sexual Activity Alcohol use: Not Currently Drug use: Never Sexual activity: Not on file Other Topics Concern Not on file Social History Narrative Not on file Social Drivers of Health Financial Resource Strain: Not on file Food Insecurity: Not on file Transportation Needs: No Transportation Needs (09/18/2024) PRAPARE - Transportation Lack of Transportation (Medical): No Lack of Transportation (Non-Medical): No Physical Activity: Not on file Stress: Not on file Social Connections: Not on file Intimate Partner Violence: Not At Risk (09/18/2024) Humiliation, Afraid, Rape, and Kick questionnaire Fear of Current or Ex-Partner: No Emotionally Abused: No Physically Abused: No Sexually Abused: No Housing Stability: Unknown (09/18/2024) Housing Stability Vital Sign Unable to Pay for Housing in the Last Year: No Number of Times Moved in the Last Year: Not on file Homeless in the Last Year: No Family History: No family history on file. REVIEW OF SYSTEMS: Review of Systems 10 point review of system negative other than above HPI PHYSICAL EXAM: Physical Exam Vitals: BP (!) 140/67 Pulse 62 Temp 36.6 C (97.8 F) Resp 18 General Appearance: Within normal limits. Patient is pleasant, cooperative, O x 3. NAD. Her granddaughter is present with her. Neurologic: No cranial nerve deficit, gait, coordination and speech normal. Complete loss of protective senses bilateral Wound/Incision 09/18/24 Diabetic Ulcer Foot Right (Active) Wound Image 11/20/24 1253 Site Assessment Granulation 11/20/24 1253 Linda-Wound Assessment Pale;[place] 11/20/24 1253 Wound Length (cm) 0.3 cm 11/20/24 1253 Wound Width (cm) 0.4 cm 11/20/24 1253 Wound Surface Area (cm^2) 0.12 cm^2 11/20/24 1253 Wound Depth (cm) 0.1 cm 11/20/24 1253 Wound Volume (cm^3) 0.012 cm^3 11/20/24 1253 Wound Healing % 94 11/20/24 1253 Drainage Description Serosanguineous 11/20/24 1253 Odor None 11/20/24 1253 Drainage Amount Moderate 11/20/24 1253 Treatments Cleansed 11/20/24 1253 Primary Dressing Collagen;Xeroform 11/20/24 1253 Secondary Dressing 4x4 gauze 11/13/24 1359 Secured with Medfix tape 11/20/24 1253 Dressing Status New dressing 11/13/24 1359 Undermining 0.4 cm 10/09/24 1200 Undermining Clock Position of Wound 9;10;11;12 10/09/24 1200 Number of days: 62 Dermatology: Ulceration with a hyperkeratotic halo plantar medial right foot. No sign of secondary soft tissue infection. Wound: Wound/Incision 09/18/24 Diabetic Ulcer Foot Right (Active) Wound Image 11/20/24 1253 Site Assessment Granulation 11/20/24 1253 Linda-Wound Assessment Pale;[place] 11/20/24 1253 Wound Length (cm) 0.3 cm 11/20/24 1253 Wound Width (cm) 0.4 cm 11/20/24 1253 Wound Surface Area (cm^2) 0.12 cm^2 11/20/24 1253 Wound Depth (cm) 0.1 cm 11/20/24 1253 Wound Volume (cm^3) 0.012 cm^3 11/20/24 1253 Wound Healing % 94 11/20/24 1253 Drainage Description Serosanguineous 11/20/24 1253 Odor None 11/20/24 1253 Drainage Amount Moderate 11/20/24 1253 Treatments Cleansed 11/20/24 1253 Primary Dressing Collagen;Xeroform 11/20/24 1253 Secondary Dressing 4x4 gauze 11/13/24 1359 Secured with Medfix tape 11/20/24 1253 Dressing Status New dressing 11/13/24 1359 Undermining 0.4 cm 10/09/24 1200 Undermining Clock Position of Wound 9;10;11;12 10/09/24 1200 Cardiovascular: Pedal pulses are palpable bilateral. MUSCULOSKELETAL: Severe pes planus bilateral right greater than left. HEENT: Normal Respiratory: Normal respirations Lab Results Component Value Date WBC 6.7 09/24/2024 HGB 11.7 09/24/2024 HCT 36.8 09/24/2024 MCV 96.8 09/24/2024 PLT 215 09/24/2024 Lab Results Component Value Date GLUCOSE 238 (H) 09/24/2024 CALCIUM 8.8 09/24/2024 NA 139 09/24/2024 K 4.4 09/24/2024 CO2 19 (L) 09/24/2024 CL 111 (H) 09/24/2024 BUN 35 (H) 09/24/2024 CREATININE 1.07 09/24/2024 Lab Results Component Value Date HGBA1C 12.2 (H) 09/20/2024 No results found for: "SEDRATE" No results found for: "CRP" No results found for: "LABGRAM" No components found for: "LABAERO" No components found for: "LABANAE" No results found for this or any previous visit from the past 365 days. IMPRESSION 1. 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 4. Pes planus of both feet 5. Diabetic ulcer of right foot associated with diabetes mellitus due to underlying condition, withnecrosis of muscle, unspecified part of foot (HCC) 6. Uncontrolled type 2 diabetes mellitus with hyperglycemia (HCC) PLAN: Orders Placed This Encounter Procedures Wound Care OP Follow-up Follow up in 2 weeks Dressing Order: Collagen, Xeroform; Three times per week; 4x4 gauze; Medfix tape Order Specific Question: Primary Dressing Answer: Collagen Order Specific Question: Primary Dressing Answer: Xeroform Order Specific Question: Dressing Frequency Answer: Three times per week Order Specific Question: Secondary Dressing Answer: 4x4 gauze Order Specific Question: Secured With Answer: Medfix tape Procedures No follow-ups on file. Nallely Alas DPM 11/20/2024 3:23 PM * Liss Acevedo RN - 11/20/2024 12:45 PM EDT Assessments Nursing Assessment/Reassessment Score (check box all that apply) Reassessment of Co-morbidities (includes updates in patient status) 10 [x] Wound and Skin Assessment/Reassessment 5 [x] Reassessment of Adherence to Treatment Plan Simple Wound Assessment / Reassessment - one wound 5 [x] Complex Wound Assessment - multiple wounds (# of: 0 ) multiply by 5 to get score 0 [] Dermatologic / Skin Assessment (not related to wound area) 10 [x] Focused Assessment Circumferential Edema Measurements - multi extremities (# of: 0) multiply by 5 to get score 0 [] Nutritional Assessment/Counseling/Intervention 10 [] Lower Extremity Assessment (monofilament, tuning fork, pulses) 5 [] Peripheral Arterial Disease Assessment (using hand-held doppler) 10 [] Ostomy and/or Continence Assessment & Care Incontinence Assessment and Management 10 [] Ostomy Care Assessment and Management (repouching, etc) 20 [] Process Coordination of Care Simple Patient/Family Education for ongoing care 15 [x] Complex (extensive) Patient/Family Education for ongoing of care 20 [] Staff obtains Consent, Records, Test Results/Process Orders 10 [] Staff telephones FAMILY THERAPIST, Nursing Homes/Clarify Orders 10 [] Routine Transfer to another Facility (non-emergent condition) 10 [] Routine Hospital Admission (non-emergent condition) 10 [] New Admissions/Insurance Auth/Ordering NPWT, skin substitute, etc. 15 [] Emergency Hospital Admission (emergent condition) 20 [] Simple Discharge Coordination 10 [] Complex (extensive) Discharge Coordination 15 [] Special Needs Pediatric / Minor Patient Management 10 [] Isolation Patient Management 10 [] Hearing/Language/Visual Special Needs 15 [] Assessment of Community Assistance (transportation, discharge planning) 15 [] Additional Assistance / Altered Mentation 15 [] Support Surface Assessment (bed, cushion, seat) 15 [] Interventions Wound Cleansing/Measurement Simple Wound Cleansing - one wound 5 [x] Complex Wound Cleansing - multiple wounds (# of: 0) multiply by 5 to get score 0 [] Wound Imaging (photographs - any number of wounds) 5 [x] Wound Tracing (instead of photographs) 5 [] Simple Wound Measurements - one wound 5 [x] Complex Wound Measuremnts - multiple wounds (#of: 0) multiply by 5 to get score 0 [] Wound Dressings Small Wound Dressing - one or multiple wounds (# of: 1 ) multiply by 10 to get score 10 [x] Medium Wound Dressing - one or multiple wounds (# of: 00 ) multiply by 15 to get score 0 [] Large Wound Dressing - one or multiple wounds (# of: 0) multiply by 20 to get score 0 [] Application of Medications - topical 5 [x] Application of Medication - injection 10 [] Miscellaneous External Ear Exam Specimen Collection (culture, biopsies, blood, body fluids, etc) 5 [] Specimen/Culture sent or taken to lab for analysis 5 [] Patient Transfer (multiple staff/Man lift) 10 [] Simple Staple/Suture Removal (25 or less) 5 [] Complex Staple/Suture Removal (26 or more) 10 [] Hypo/Hyperglycemic Management 10 [] Ankle/Brachial Index (RIKA) 15 [] Vital Signs 5 [x] Total Points - Use to Determine Level of Clinic Visit 80 Points Larsen: Level 1 (1-35 Points) Level 2 (40-75 Points) Level 3 (80-115 Points) Level 4 (120-155 Points) Level 5 (160 or more Points) documented in this [facility]2025 Hospital Discharge instructions* Patient Instructions* Liss Acevedo RN - 11/20/2024 12:45 PM EDT Follow-up Appointments: Return Appointment in 2 weeks. Call [facility] at [phone], [facility] at [phone], or [facility] at [phone]. Edema/Swelling: Avoid standing for long periods of time, elevate legs to the level of the heart or above 30 minutesdaily and/or when sitting. Offloading: Avoid pressure to wound site as often as possible. ANY AMOUNT OF PRESSURE WILL DELAY WOUND HEALING. Offloading wound site is extremely important to assist in wound healing. Avoid friction and shearing, do not scoot or slide. Lift your weight up when repositioning. Bathing/Showering: OK to shower but do not soak or submerge wound. Use an antibacterial soap, such as dial to cleanse wound area once the rest of the body has been washed. Nutrition: Follow diet per physician instructions such as increasing protein intake to promote wound healing 100 gram of protein a day If diabetic-Monitor blood sugars to help with wound healing. High blood sugars can affect wound healing. Wound Care: R Plantar foot (x3 weekly) Keep insert on as long as possible Cleanse wound with mild soap and water and pat dry Apply Collagen to wound bed Apply Xeroform over Collagen Gauze Apply Medifix tape Signs and symptoms of wound infection: - fever - flu-like symptoms - pus or unusual drainage - foul odor - worsening of wound - spreading redness or warmth around the wound - increased pain - increasing and/or uncontrolled blood sugar for diabetics Please call the wound center at [phone] if you are experiencing this. If we are closed and youare unable to reach us in person please go to the ER documented in this [facility]04-04-2025 History of Present illness Narrative* Nallely Alas, BAILEYM - 11/13/2024 1:15 PM EDT Images from the original note were not included. Wound Care Visit CHIEF COMPLAINT: Chief Complaint Patient presents with Wound Care Follow-up ulceration right foot. No new complaints. Patient relates she did go to managing cognitive engineer for diabetic shoes and AFO HISTORY OF PRESENT ILLNESS: The patient is a 84 y.o. female with significant past medical history of Past Medical History: Diagnosis Date Atrial fibrillation (HCC) Diabetes mellitus (HCC) Hyperlipidemia Hypertension Hypothyroidism Neuropathy Past Medical History: Past Medical History: Diagnosis Date Atrial fibrillation (HCC) Diabetes mellitus (HCC) Hyperlipidemia Hypertension Hypothyroidism Neuropathy Past Surgical History: Past Surgical History: Procedure Laterality Date BACK SURGERY CHOLECYSTECTOMY Current Medications: Current Outpatient Medications: Alcohol Swabs (Alcohol Prep) 70 % pads, 1 Pad 3 times daily., Disp: 200 each, Rfl: 2 amLODIPine (Norvasc) 5 MG tablet, Take by mouth daily., Disp: , Rfl: apixaban (Eliquis) 5 MG tablet, Take 5 mg by mouth 2 times daily., Disp: , Rfl: atenolol (Tenormin) 50 MG tablet, Take 50 mg by mouth 2 times daily., Disp: , Rfl: atorvastatin (Lipitor) 40 MG tablet, Take 40 mg by mouth daily., Disp: , Rfl: Blood Glucose Monitoring Suppl (Blood Glucose Monitor System) w/Device kit, Check glucose 3x daily,Disp: 1 kit, Rfl: 0 ergocalciferol (Vitamin D2) 1.25 MG (19945 UT) capsule, Take 1 capsule (1.25 mg) by mouth 1 (one) time per week for 7 doses., Disp: 4 capsule, Rfl: 1 fenofibrate (Triglide) 160 MG tablet, Take 160 mg by mouth daily., Disp: , Rfl: gabapentin (Neurontin) 300 MG capsule, Take 300 mg by mouth 2 times daily., Disp: , Rfl: glucose blood test strip, Use as instructed, Disp: 100 each, Rfl: 0 insulin degludec (Tresiba FlexTouch) 100 UNIT/ML injection, Inject 30 Units under the skin Nightly., Disp: 30 mL, Rfl: 3 Lancets, Check glucose x3 daily, Disp: 100 each, Rfl: 3 levothyroxine (Tirosint) 112 MCG capsule, Take by mouth every morning (before breakfast)., Disp: , Rfl: linaGLIPtin (Tradjenta) 5 MG tablet, Take 1 tablet (5 mg) by mouth daily., Disp: 30 tablet, Rfl: 3 lisinopril 20 MG tablet, Take by mouth daily., Disp: , Rfl: metFORMIN (Glucophage) 500 MG tablet, Take 1 tablet (500 mg) by mouth 2 times daily (with meals). (Patient taking differently: Take 1,000 mg by mouth 2 times daily (with meals).), Disp: 60 tablet, Rfl: 6 oxybutynin (Ditropan) 5 MG tablet, Take 10 mg by mouth daily., Disp: , Rfl: Current Facility-Administered Medications: lidocaine (Uro-Jet) 2 % gel, , Topical, PRN, Marielos Blair, 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 - NUCLEAR PLANT INSTRUMENT TECHNICIAN Allergies: Allergies Allergen Reactions Tape Rash Social History: Social History Socioeconomic History Marital status: Spouse name: Not on file Number of children: Not on file Years of education: Not on file Highest education level: Not on file Occupational History Not on file Tobacco Use Smoking status: Former Current packs/day: 0.00 Types: Cigarettes Quit date: 1964 Years since quittin.2 Smokeless tobacco: Never Vaping Use Vaping status: Never Used Substance and Sexual Activity Alcohol use: Not Currently Drug use: Never Sexual activity: Not on file Other Topics Concern Not on file Social History Narrative Not on file Social Drivers of Health Financial Resource Strain: Not on file Food Insecurity: Not on file Transportation Needs: No Transportation Needs (09/18/2024) PRAPARE - Transportation Lack of Transportation (Medical): No Lack of Transportation (Non-Medical): No Physical Activity: Not on file Stress: Not on file Social Connections: Not on file Intimate Partner Violence: Not At Risk (09/18/2024) Humiliation, Afraid, Rape, and Kick questionnaire Fear of Current or Ex-Partner: No Emotionally Abused: No Physically Abused: No Sexually Abused: No Housing Stability: Unknown (09/18/2024) Housing Stability Vital Sign Unable to Pay for Housing in the Last Year: No Number of Times Moved in the Last Year: Not on file Homeless in the Last Year: No Family History: No family history on file. REVIEW OF SYSTEMS: Review of Systems 10 point review of system negative other than above HPI PHYSICAL EXAM: Physical Exam Vitals: BP 130/62 Pulse 71 Temp 36.3 C (97.3 F) Resp 18 General Appearance: Within normal limits. Daughters present. Neurologic: No cranial nerve deficit, gait, coordination and speech normal. Loss of protective senses bilateral Wound/Incision 09/18/24 Diabetic Ulcer Foot Right (Active) Wound Image 11/13/24 135 Site Assessment Granulation;[place] 11/13/24 135 Linda-Wound Assessment [place] 11/13/24 135 Wound Length (cm) 0.4 cm 11/13/24 135 Wound Width (cm) 0.5 cm 11/13/24 135 Wound Surface Area (cm^2) 0.2 cm^2 11/13/24 135 Wound Depth (cm) 0.2 cm 11/13/24 135 Wound Volume (cm^3) 0.04 cm^3 11/13/24 1359 Wound Healing % 80 11/13/24 135 Drainage Description Serosanguineous 11/13/24 1359 Odor None 11/13/24 135 Drainage Amount Small 11/13/24 135 Treatments Cleansed 11/13/24 1359 Primary Dressing Collagen;Xeroform 11/06/24 1254 Secondary Dressing Silicone foam borders (multiple sizes) 10/02/24 0914 Secured with Medfix tape 11/06/24 1254 Dressing Status New dressing;Clean, dry & intact 11/06/24 1254 Undermining 0.4 cm 10/09/24 1200 Undermining Clock Position of Wound 9;10;11;12 10/09/24 1200 Number of days: 55 Dermatology: Dermal ulcer plantar medial right foot with hyperkeratotic halo. No sign of infection Wound: Wound/Incision 09/18/24 Diabetic Ulcer Foot Right (Active) Wound Image 11/13/24 1359 Site Assessment Granulation;[place] 11/13/24 1359 Linda-Wound Assessment [place] 11/13/24 1359 Wound Length (cm) 0.4 cm 11/13/24 1359 Wound Width (cm) 0.5 cm 11/13/24 135 Wound Surface Area (cm^2) 0.2 cm^2 11/13/24 1359 Wound Depth (cm) 0.2 cm 11/13/24 1359 Wound Volume (cm^3) 0.04 cm^3 11/13/24 135 Wound Healing % 80 11/13/24 1359 Drainage Description Serosanguineous 11/13/24 1359 Odor None 11/13/24 135 Drainage Amount Small 11/13/24 135 Treatments Cleansed 11/13/24 1359 Primary Dressing Collagen;Xeroform 11/06/24 1254 Secondary Dressing Silicone foam borders (multiple sizes) 10/02/24 0914 Secured with Medfix tape 11/06/24 1254 Dressing Status New dressing;Clean, dry & intact 11/06/24 1254 Undermining 0.4 cm 10/09/24 1200 Undermining Clock Position of Wound 9;10;11;12 10/09/24 1200 Cardiovascular: Pedal pulses are palpable. Edema bilateral lower extremities. MUSCULOSKELETAL: Severe pes planus bilateral HEENT: Normal Respiratory: Within normal limits Lab Results Component Value Date WBC 6.7 09/24/2024 HGB 11.7 09/24/2024 HCT 36.8 09/24/2024 MCV 96.8 09/24/2024 PLT 215 09/24/2024 Lab Results Component Value Date GLUCOSE 238 (H) 09/24/2024 CALCIUM 8.8 09/24/2024 NA 139 09/24/2024 K 4.4 09/24/2024 CO2 19 (L) 09/24/2024 CL 111 (H) 09/24/2024 BUN 35 (H) 09/24/2024 CREATININE 1.07 09/24/2024 Lab Results Component Value Date HGBA1C 12.2 (H) 09/20/2024 No results found for: "SEDRATE" No results found for: "CRP" No results found for: "LABGRAM" No components found for: "LABAERO" No components found for: "LABANAE" No results found for this or any previous visit from the past 365 days. IMPRESSION 1. 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 2. 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 Diabetic ulcer of right foot associated with diabetes mellitus due to underlying condition, withnecrosis of muscle, unspecified part of foot (HCC) 4. Diabetic ulcer of other part of right foot associated with diabetes mellitus due to underlying condition, with necrosis of muscle (HCC) 5. Pes planus of both feet 6. Uncontrolled type 2 diabetes mellitus with hyperglycemia ([facility]) PLAN: Orders Placed This Encounter Procedures Wound Care OP Follow-up Follow up in 1 week Dressing Order: Collagen, Xeroform; Three times per week; 4x4 gauze; Medfix tape Order Specific Question: Primary Dressing Answer: Collagen Order Specific Question: Primary Dressing Answer: Xeroform Order Specific Question: Dressing Frequency Answer: Three times per week Order Specific Question: Secondary Dressing Answer: 4x4 gauze Order Specific Question: Secured With Answer: Medfix tape Procedures No follow-ups on file. Nallely Alas DPM 11/13/2024 3:02 PM documented in this [facility]04-04-2025 Hospital Discharge instructions* Patient Instructions* Liss Acevedo RN - 11/13/2024 1:15 PM EDT Follow-up Appointments: Return Appointment in 1 week. Call [place] [facility] at [phone], [facility] at [phone], or [facility] at [phone]. Edema/Swelling: Avoid standing for long periods of time, elevate legs to the level of the heart or above 30 minutesdaily and/or when sitting. Offloading: Avoid pressure to wound site as often as possible. ANY AMOUNT OF PRESSURE WILL DELAY WOUND HEALING. Offloading wound site is extremely important to assist in wound healing. Avoid friction and shearing, do not scoot or slide. Lift your weight up when repositioning. Bathing/Showering: OK to shower but do not soak or submerge wound. Use an antibacterial soap, such as dial to cleanse wound area once the rest of the body has been washed. Nutrition: Follow diet per physician instructions such as increasing protein intake to promote wound healing 100 gram of protein a day If diabetic-Monitor blood sugars to help with wound healing. High blood sugars can affect wound healing. Wound Care: R Plantar foot (x3 weekly) Keep insert on as long as possible Cleanse wound with mild soap and water and pat dry Apply Collagen to wound bed Apply Xeroform over Collagen Gauze Apply Medifix tape Signs and symptoms of wound infection: - fever - flu-like symptoms - pus or unusual drainage - foul odor - worsening of wound - spreading redness or warmth around the wound - increased pain - increasing and/or uncontrolled blood sugar for diabetics Please call the wound center at [phone] if you are experiencing this. If we are closed and youare unable to reach us in person please go to the ER documented in this encounterSSt. Vincent [id number] Telephone encounter Note* Telephone Encounter - Miseha Oswald - 11/12/2024 10:12 AM EDT Called and spoke to Hi. Pt is scheduled in December to see Priscila Laguerre. [facility] [id number] Miscellaneous Notes* Telephone Encounter - Miesha Oswald - 11/12/2024 10:12 AM EDT Called and spoke to Hi. Pt is scheduled in December to see Priscila Laguerre. * Telephone Encounter - Olga Santos MA - 11/12/2024 7:58 AM EDT Could you please assist? * Telephone Encounter - Yumiko Patel - 11/11/2024 4:23 PM EDT Patient's further questions if applicable: Hi states he is calling to get pt scheduled for a follow up appt with office for sooner then what's available. Please advise. * Telephone Encounter - ALEJANDRINA Urias CNP - 09/24/2024 4:08 PM EST Edmond Allen, The family changed their mind and are agreeable to insulin for discharge. Can we continue Javier 3 plus? It is set up on her phone and doesn't require reader. Thanks! * Telephone Encounter - ALEJANDRINA Urias CNP - 09/23/2024 4:03 PM EST Edmond Allen, This patient refused insulin for home going. She won't qualify for Javier sensors. Can you cancel this request? Thanks! * Telephone Encounter - ALEJANDRINA Urias CNP - 09/21/2024 5:59 PM EST Can we see if patient would qualify for Javier 3 Plus. Patient is on Medicare and starting insulin 1injection daily. Thanks! documented in this encounterSSt. Vincent [id number] Telephone encounter Note* Telephone Encounter - Olga Santos MA - 11/12/2024 7:58 AM EDT Could you please assist? [facility] [id number] Telephone encounter Note* Telephone Encounter - Yumiko Patel - 11/11/2024 4:23 PM EDT Patient's further questions if applicable: Hi states he is calling to get pt scheduled for a follow up appt with office for sooner then what's available. Please advise. [facility] [id number] Miscellaneous Notes* Telephone Encounter - Yumiko Patel - 11/11/2024 4:23 PM EDT Patient's further questions if applicable: Hi states he is calling to get pt scheduled for a follow up appt with office for sooner then what's available. Please advise. * Telephone Encounter - ALEJANDRINA Urias CNP - 09/24/2024 4:08 PM EST Edmond Allen, The family changed their mind and are agreeable to insulin for discharge. Can we continue Javier 3 plus? It is set up on her phone and doesn't require reader. Thanks! * Telephone Encounter - ALEJANDRINA Urias CNP - 09/23/2024 4:03 PM EST Edmond Bartonn, This patient refused insulin for home going. She won't qualify for Javier sensors. Can you cancel this request? Thanks! * Telephone Encounter - ALEJANDRINA Urias CNP - 09/21/2024 5:59 PM EST Can we see if patient would qualify for Javier 3 Plus. Patient is on Medicare and starting insulin 1injection daily. Thanks! documented in this [facility]03-28-2025 History of Present illness Narrative* Nallely Alas DPM - 11/06/2024 12:45 PM EDT Images from the original note were not included. Wound Care Visit CHIEF COMPLAINT: Chief Complaint Patient presents with Wound Care Follow-up ulceration right foot. No new complaints. Patient has appointment at [facility] for diabetic shoes and custom AFO HISTORY OF PRESENT ILLNESS: The patient is a 84 y.o. female with significant past medical history of Past Medical History: Diagnosis Date Atrial fibrillation (HCC) Diabetes mellitus (HCC) Hyperlipidemia Hypertension Hypothyroidism Neuropathy Past Medical History: Past Medical History: Diagnosis Date Atrial fibrillation (HCC) Diabetes mellitus (HCC) Hyperlipidemia Hypertension Hypothyroidism Neuropathy Past Surgical History: Past Surgical History: Procedure Laterality Date BACK SURGERY CHOLECYSTECTOMY Current Medications: Current Outpatient Medications: Alcohol Swabs (Alcohol Prep) 70 % pads, 1 Pad 3 times daily., Disp: 200 each, Rfl: 2 amLODIPine (Norvasc) 5 MG tablet, Take by mouth daily., Disp: , Rfl: apixaban (Eliquis) 5 MG tablet, Take 5 mg by mouth 2 times daily., Disp: , Rfl: atenolol (Tenormin) 50 MG tablet, Take 50 mg by mouth 2 times daily., Disp: , Rfl: atorvastatin (Lipitor) 40 MG tablet, Take 40 mg by mouth daily., Disp: , Rfl: Blood Glucose Monitoring Suppl (Blood Glucose Monitor System) w/Device kit, Check glucose 3x daily,Disp: 1 kit, Rfl: 0 ergocalciferol (Vitamin D2) 1.25 MG (51211 UT) capsule, Take 1 capsule (1.25 mg) by mouth 1 (one) time per week for 7 doses., Disp: 4 capsule, Rfl: 1 fenofibrate (Triglide) 160 MG tablet, Take 160 mg by mouth daily., Disp: , Rfl: gabapentin (Neurontin) 300 MG capsule, Take 300 mg by mouth 2 times daily., Disp: , Rfl: glucose blood test strip, Use as instructed, Disp: 100 each, Rfl: 0 insulin degludec (Tresiba FlexTouch) 100 UNIT/ML injection, Inject 30 Units under the skin Nightly., Disp: 30 mL, Rfl: 3 Lancets, Check glucose x3 daily, Disp: 100 each, Rfl: 3 levothyroxine (Tirosint) 112 MCG capsule, Take by mouth every morning (before breakfast)., Disp: , Rfl: linaGLIPtin (Tradjenta) 5 MG tablet, Take 1 tablet (5 mg) by mouth daily., Disp: 30 tablet, Rfl: 3 lisinopril 20 MG tablet, Take by mouth daily., Disp: , Rfl: metFORMIN (Glucophage) 500 MG tablet, Take 1 tablet (500 mg) by mouth 2 times daily (with meals). (Patient taking differently: Take 1,000 mg by mouth 2 times daily (with meals).), Disp: 60 tablet, Rfl: 6 oxybutynin (Ditropan) 5 MG tablet, Take 10 mg by mouth daily., Disp: , Rfl: Current Facility-Administered Medications: lidocaine (Uro-Jet) 2 % gel, , Topical, PRN, Marielos Blair, 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 - NUCLEAR PLANT INSTRUMENT TECHNICIAN Allergies: Allergies Allergen Reactions Tape Rash Social History: Social History Socioeconomic History Marital status: Spouse name: Not on file Number of children: Not on file Years of education: Not on file Highest education level: Not on file Occupational History Not on file Tobacco Use Smoking status: Former Current packs/day: 0.00 Types: Cigarettes Quit date: 1964 Years since quittin.2 Smokeless tobacco: Never Vaping Use Vaping status: Never Used Substance and Sexual Activity Alcohol use: Not Currently Drug use: Never Sexual activity: Not on file Other Topics Concern Not on file Social History Narrative Not on file Social Drivers of Health Financial Resource Strain: Not on file Food Insecurity: Not on file Transportation Needs: No Transportation Needs (09/18/2024) PRAPARE - Transportation Lack of Transportation (Medical): No Lack of Transportation (Non-Medical): No Physical Activity: Not on file Stress: Not on file Social Connections: Not on file Intimate Partner Violence: Not At Risk (09/18/2024) Humiliation, Afraid, Rape, and Kick questionnaire Fear of Current or Ex-Partner: No Emotionally Abused: No Physically Abused: No Sexually Abused: No Housing Stability: Unknown (09/18/2024) Housing Stability Vital Sign Unable to Pay for Housing in the Last Year: No Number of Times Moved in the Last Year: Not on file Homeless in the Last Year: No Family History: No family history on file. REVIEW OF SYSTEMS: Review of Systems 10 point review of system negative other than above HPI. PHYSICAL EXAM: Physical Exam Vitals: BP 124/68 Pulse 64 Temp 36.6 C (97.8 F) Resp 18 General Appearance: Alert, oriented, no acute distress Neurologic: No cranial nerve deficit, gait, coordination and speech normal. both lower extremities absent Wound/Incision 09/18/24 Diabetic Ulcer Foot Right (Active) Wound Image 11/06/24 1254 Site Assessment Granulation;[place];Pale 11/06/24 1254 Linda-Wound Assessment Calloused 11/06/24 1254 Wound Length (cm) 0.7 cm 11/06/24 1254 Wound Width (cm) 0.6 cm 11/06/24 1254 Wound Surface Area (cm^2) 0.42 cm^2 11/06/24 1254 Wound Depth (cm) 0.2 cm 11/06/24 1254 Wound Volume (cm^3) 0.084 cm^3 11/06/24 1254 Wound Healing % 58 11/06/24 1254 Drainage Description Serosanguineous 11/06/24 1254 Odor None 11/06/24 1254 Drainage Amount Moderate 11/06/24 1254 Treatments Cleansed 11/06/24 1254 Primary Dressing Collagen;Xeroform 11/06/24 1254 Secondary Dressing Silicone foam borders (multiple sizes) 10/02/24 0914 Secured with Medfix tape 11/06/24 1254 Dressing Status New dressing;Clean, dry & intact 11/06/24 1254 Undermining 0.4 cm 10/09/24 1200 Undermining Clock Position of Wound 9;10;11;12 10/09/24 1200 Number of days: 48 Dermatology: Ulceration plantar medial right midfoot with hyperkeratotic halo. No sign of infection. Wound: Wound/Incision 09/18/24 Diabetic Ulcer Foot Right (Active) Wound Image 11/06/24 1254 Site Assessment Granulation;[place];Pale 11/06/24 1254 Linda-Wound Assessment Calloused 11/06/24 1254 Wound Length (cm) 0.7 cm 11/06/24 1254 Wound Width (cm) 0.6 cm 11/06/24 1254 Wound Surface Area (cm^2) 0.42 cm^2 11/06/24 1254 Wound Depth (cm) 0.2 cm 11/06/24 1254 Wound Volume (cm^3) 0.084 cm^3 11/06/24 1254 Wound Healing % 58 11/06/24 1254 Drainage Description Serosanguineous 11/06/24 1254 Odor None 11/06/24 1254 Drainage Amount Moderate 11/06/24 1254 Treatments Cleansed 11/06/24 1254 Primary Dressing Collagen;Xeroform 11/06/24 1254 Secondary Dressing Silicone foam borders (multiple sizes) 10/02/24 0914 Secured with Medfix tape 11/06/24 1254 Dressing Status New dressing;Clean, dry & intact 11/06/24 1254 Undermining 0.4 cm 10/09/24 1200 Undermining Clock Position of Wound 9;10;11;12 10/09/24 1200 Cardiovascular: Pedal pulses palpable MUSCULOSKELETAL: Severe pes planus with forefoot abduction right greater than left HEENT: Normal Respiratory: Normal Lab Results Component Value Date WBC 6.7 09/24/2024 HGB 11.7 09/24/2024 HCT 36.8 09/24/2024 MCV 96.8 09/24/2024 PLT 215 09/24/2024 Lab Results Component Value Date GLUCOSE 238 (H) 09/24/2024 CALCIUM 8.8 09/24/2024 NA 139 09/24/2024 K 4.4 09/24/2024 CO2 19 (L) 09/24/2024 CL 111 (H) 09/24/2024 BUN 35 (H) 09/24/2024 CREATININE 1.07 09/24/2024 Lab Results Component Value Date HGBA1C 12.2 (H) 09/20/2024 No results found for: "SEDRATE" No results found for: "CRP" No results found for: "LABGRAM" No components found for: "LABAERO" No components found for: "LABANAE" No results found for this or any previous visit from the past 365 days. IMPRESSION 1. Diabetic ulcer of right foot associated with diabetes mellitus due to underlying condition, withnecrosis of muscle, unspecified part of foot (HCC) 2. 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 Pes planus of both feet 4. 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 5. Diabetic ulcer of other part of right foot associated with diabetes mellitus due to underlying condition, with necrosis of muscle (HCC) PLAN: Orders Placed This Encounter Procedures Wound Care OP Follow-up Follow up in 1 week Dressing Order: Collagen, Xeroform; Three times per week; Medfix tape Order Specific Question: Primary Dressing Answer: Collagen Order Specific Question: Primary Dressing Answer: Xeroform Order Specific Question: Dressing Frequency Answer: Three times per week Order Specific Question: Secured With Answer: Medfix tape Procedures No follow-ups on file. Nallely Alas DPM 11/06/2024 1:49 PM * Liss Acevedo RN - 11/06/2024 12:45 PM EDT Assessments Nursing Assessment/Reassessment Score (check box all that apply) Reassessment of Co-morbidities (includes updates in patient status) 10 [x] Wound and Skin Assessment/Reassessment 5 [x] Reassessment of Adherence to Treatment Plan Simple Wound Assessment / Reassessment - one wound 5 [x] Complex Wound Assessment - multiple wounds (# of: 0 ) multiply by 5 to get score 0 [] Dermatologic / Skin Assessment (not related to wound area) 10 [x] Focused Assessment Circumferential Edema Measurements - multi extremities (# of: 0) multiply by 5 to get score 0 [] Nutritional Assessment/Counseling/Intervention 10 [] Lower Extremity Assessment (monofilament, tuning fork, pulses) 5 [] Peripheral Arterial Disease Assessment (using hand-held doppler) 10 [] Ostomy and/or Continence Assessment & Care Incontinence Assessment and Management 10 [] Ostomy Care Assessment and Management (repouching, etc) 20 [] Process Coordination of Care Simple Patient/Family Education for ongoing care 15 [x] Complex (extensive) Patient/Family Education for ongoing of care 20 [] Staff obtains Consent, Records, Test Results/Process Orders 10 [] Staff telephones [facility], Nursing Homes/Clarify Orders 10 [] Routine Transfer to another Facility (non-emergent condition) 10 [] Routine Hospital Admission (non-emergent condition) 10 [] New Admissions/Insurance Auth/Ordering NPWT, skin substitute, etc. 15 [] Emergency Hospital Admission (emergent condition) 20 [] Simple Discharge Coordination 10 [] Complex (extensive) Discharge Coordination 15 [] Special Needs Pediatric / Minor Patient Management 10 [] Isolation Patient Management 10 [] Hearing/Language/Visual Special Needs 15 [] Assessment of Community Assistance (transportation, discharge planning) 15 [] Additional Assistance / Altered Mentation 15 [] Support Surface Assessment (bed, cushion, seat) 15 [] Interventions Wound Cleansing/Measurement Simple Wound Cleansing - one wound 5 [x] Complex Wound Cleansing - multiple wounds (# of: 0) multiply by 5 to get score 0 [] Wound Imaging (photographs - any number of wounds) 5 [x] Wound Tracing (instead of photographs) 5 [] Simple Wound Measurements - one wound 5 [x] Complex Wound Measuremnts - multiple wounds (#of: 0) multiply by 5 to get score 0 [] Wound Dressings Small Wound Dressing - one or multiple wounds (# of: 1 ) multiply by 10 to get score 10 [x] Medium Wound Dressing - one or multiple wounds (# of: 0 ) multiply by 15 to get score 0 [] Large Wound Dressing - one or multiple wounds (# of: 0) multiply by 20 to get score 0 [] Application of Medications - topical 5 [x] Application of Medication - injection 10 [] Miscellaneous External Ear Exam Specimen Collection (culture, biopsies, blood, body fluids, etc) 5 [] Specimen/Culture sent or taken to lab for analysis 5 [] Patient Transfer (multiple staff/Man lift) 10 [] Simple Staple/Suture Removal (25 or less) 5 [] Complex Staple/Suture Removal (26 or more) 10 [] Hypo/Hyperglycemic Management 10 [] Ankle/Brachial Index (RIKA) 15 [] Vital Signs 5 [x] Total Points - Use to Determine Level of Clinic Visit 80 Points Larsen: Level 1 (1-35 Points) Level 2 (40-75 Points) Level 3 (80-115 Points) Level 4 (120-155 Points) Level 5 (160 or more Points) documented in this [facility]03-28-2025 Hospital Discharge instructions* Patient Instructions* Liss Acevedo RN - 11/06/2024 12:45 PM EDT Follow-up Appointments: Return Appointment in [address] [facility] center at [phone], [facility] at [phone], or [facility] at [phone]. Edema/Swelling: Avoid standing for long periods of time, elevate legs to the level of the heart or above 30 minutesdaily and/or when sitting. Offloading: Avoid pressure to wound site as often as possible. ANY AMOUNT OF PRESSURE WILL DELAY WOUND HEALING. Offloading wound site is extremely important to assist in wound healing. Avoid friction and shearing, do not scoot or slide. Lift your weight up when repositioning. Bathing/Showering: OK to shower but do not soak or submerge wound. Use an antibacterial soap, such as dial to cleanse wound area once the rest of the body has been washed. Nutrition: Follow diet per physician instructions such as increasing protein intake to promote wound healing 100 gram of protein a day If diabetic-Monitor blood sugars to help with wound healing. High blood sugars can affect wound healing. Wound Care: R Plantar foot (x3 weekly) Keep insert on as long as possible Cleanse wound with mild soap and water and pat dry Apply Collagen to wound bed Apply Xeroform over Collagen Apply Medifix tape Signs and symptoms of wound infection: - fever - flu-like symptoms - pus or unusual drainage - foul odor - worsening of wound - spreading redness or warmth around the wound - increased pain - increasing and/or uncontrolled blood sugar for diabetics Please call the wound center at [phone] if you are experiencing this. If we are closed and youare unable to reach us in person please go to the ER documented in this [facility]03-20-2025 Telephone encounter Note* Telephone Encounter - Bella Duenas - 10/29/2024 4:13 PM EDT Name of caller: Hanna Contact phone number: [phone] or [phone] Relationship to Patient: patient Provider: Marcela Practice: [facility] Chief Complaint/Reason for Call: Pt called about phone call she missed and I informed her that she had an appt scheduled for 10.30.24 @ 3:00. Pt accepted this appt and will be there. Best time of day caller can be reached: any Patient advised that office/PCP has 24-48 business hours to return their call: Yes [id number] Miscellaneous Notes* Telephone Encounter - Bella Duenas - 10/29/2024 4:13 PM EDT Name of caller: Hanna Contact phone number: [phone] or [phone] Relationship to Patient: patient Provider: Marcela Practice: [facility] Chief Complaint/Reason for Call: Pt called about phone call she missed and I informed her that she had an appt scheduled for 10.30.24 @ 3:00. Pt accepted this appt and will be there. Best time of day caller can be reached: any Patient advised that office/PCP has 24-48 business hours to return their call: Yes documented in this encounterSSt. Vincent [id number] History of Present illness Narrative* Nallely Alas DPM - 10/16/2024 12:45 PM ESTAssociated Order(s): Debridement Post-Procedure Diagnose(s): 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 Wound Care Visit CHIEF COMPLAINT: Chief Complaint Patient presents with Wound Care Follow-up ulceration right foot patient's daughter is present relates there was some confusion withher getting the AFO and diabetic shoes. They are arranging an appointment with [facility] HISTORY OF PRESENT ILLNESS: The patient is a 84 y.o. female with significant past medical history of Past Medical History: Diagnosis Date Atrial fibrillation (HCC) Diabetes mellitus (HCC) Hyperlipidemia Hypertension Hypothyroidism Neuropathy Past Medical History: Past Medical History: Diagnosis Date Atrial fibrillation (HCC) Diabetes mellitus (HCC) Hyperlipidemia Hypertension Hypothyroidism Neuropathy Past Surgical History: Past Surgical History: Procedure Laterality Date BACK SURGERY CHOLECYSTECTOMY Current Medications: Current Outpatient Medications: Alcohol Swabs (Alcohol Prep) 70 % pads, 1 Pad 3 times daily., Disp: 200 each, Rfl: 2 amLODIPine (Norvasc) 5 MG tablet, Take by mouth daily., Disp: , Rfl: apixaban (Eliquis) 5 MG tablet, Take 5 mg by mouth 2 times daily., Disp: , Rfl: atenolol (Tenormin) 50 MG tablet, Take 50 mg by mouth 2 times daily., Disp: , Rfl: atorvastatin (Lipitor) 40 MG tablet, Take 40 mg by mouth daily., Disp: , Rfl: Blood Glucose Monitoring Suppl (Blood Glucose Monitor System) w/Device kit, Check glucose 3x daily,Disp: 1 kit, Rfl: 0 ergocalciferol (Vitamin D2) 1.25 MG (44842 UT) capsule, Take 1 capsule (1.25 mg) by mouth 1 (one) time per week for 7 doses., Disp: 4 capsule, Rfl: 1 fenofibrate (Triglide) 160 MG tablet, Take 160 mg by mouth daily., Disp: , Rfl: gabapentin (Neurontin) 300 MG capsule, Take 300 mg by mouth 2 times daily., Disp: , Rfl: glucose blood test strip, Use as instructed, Disp: 100 each, Rfl: 0 insulin degludec (Tresiba FlexTouch) 100 UNIT/ML injection, Inject 30 Units under the skin Nightly., Disp: 30 mL, Rfl: 3 Lancets, Check glucose x3 daily, Disp: 100 each, Rfl: 3 levothyroxine (Tirosint) 112 MCG capsule, Take by mouth every morning (before breakfast)., Disp: , Rfl: linaGLIPtin (Tradjenta) 5 MG tablet, Take 1 tablet (5 mg) by mouth daily., Disp: 30 tablet, Rfl: 3 lisinopril 20 MG tablet, Take by mouth daily., Disp: , Rfl: metFORMIN (Glucophage) 500 MG tablet, Take 1 tablet (500 mg) by mouth 2 times daily (with meals). (Patient taking differently: Take 1,000 mg by mouth 2 times daily (with meals).), Disp: 60 tablet, Rfl: 6 oxybutynin (Ditropan) 5 MG tablet, Take 10 mg by mouth daily., Disp: , Rfl: Current Facility-Administered Medications: lidocaine (Uro-Jet) 2 % gel, , Topical, PRN, Marielos Blair, 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 - NUCLEAR PLANT INSTRUMENT TECHNICIAN Allergies: Allergies Allergen Reactions Tape Rash Social History: Social History Socioeconomic History Marital status: Spouse name: Not on file Number of children: Not on file Years of education: Not on file Highest education level: Not on file Occupational History Not on file Tobacco Use Smoking status: Former Current packs/day: 0.00 Types: Cigarettes Quit date: 1965 Years since quittin.2 Smokeless tobacco: Never Vaping Use Vaping status: Never Used Substance and Sexual Activity Alcohol use: Not Currently Drug use: Never Sexual activity: Not on file Other Topics Concern Not on file Social History Narrative Not on file Social Drivers of Health Financial Resource Strain: Not on file Food Insecurity: Not on file Transportation Needs: No Transportation Needs (09/18/2024) PRAPARE - Transportation Lack of Transportation (Medical): No Lack of Transportation (Non-Medical): No Physical Activity: Not on file Stress: Not on file Social Connections: Not on file Intimate Partner Violence: Not At Risk (09/18/2024) Humiliation, Afraid, Rape, and Kick questionnaire Fear of Current or Ex-Partner: No Emotionally Abused: No Physically Abused: No Sexually Abused: No Housing Stability: Unknown (09/18/2024) Housing Stability Vital Sign Unable to Pay for Housing in the Last Year: No Number of Times Moved in the Last Year: Not on file Homeless in the Last Year: No Family History: No family history on file. REVIEW OF SYSTEMS: Review of Systems 10 point review of system negative other than above HPI PHYSICAL EXAM: Physical Exam Vitals: BP (!) 144/76 Pulse 78 Temp 37 C (98.6 F) Resp 18 General Appearance: Pleasant cooperative oriented person place and time. Daughter is present. Neurologic: No cranial nerve deficit, gait, coordination and speech normal. Loss of protective senses bilateral Wound/Incision 09/18/24 Diabetic Ulcer Foot Right (Active) Wound Image 10/16/24 1252 Site Assessment Granulation;Pale;[place] 10/16/24 1252 Linda-Wound Assessment Calloused;Macerated 10/16/24 1252 Wound Length (cm) 0.7 cm 10/16/24 1252 Wound Width (cm) 0.6 cm 10/16/24 1252 Wound Surface Area (cm^2) 0.42 cm^2 10/16/24 1252 Wound Depth (cm) 0.2 cm 10/16/24 1252 Wound Volume (cm^3) 0.084 cm^3 10/16/24 1252 Wound Healing % 58 10/16/24 1252 Drainage Description Serosanguineous 10/16/24 1252 Odor None 10/09/24 1235 Drainage Amount Moderate 10/16/24 1252 Treatments Cleansed 10/16/24 1252 Primary Dressing Collagen;Xeroform 10/16/24 1252 Secondary Dressing Silicone foam borders (multiple sizes) 10/02/24 0914 Secured with Medfix tape 10/16/24 1252 Dressing Status New dressing 10/16/24 1252 Undermining 0.4 cm 10/09/24 1200 Undermining Clock Position of Wound 9;10;11;12 10/09/24 1200 Number of days: 27 Dermatology: Dermal ulcer plantar right medial midfoot with hyperkeratotic halo and necrotic debris. No sign of secondary soft tissue infection. Wound: Wound/Incision 09/18/24 Diabetic Ulcer Foot Right (Active) Wound Image 10/16/24 1252 Site Assessment Granulation;Pale;[place] 10/16/24 1252 Linda-Wound Assessment Calloused;Macerated 10/16/24 1252 Wound Length (cm) 0.7 cm 10/16/24 1252 Wound Width (cm) 0.6 cm 10/16/24 1252 Wound Surface Area (cm^2) 0.42 cm^2 10/16/24 1252 Wound Depth (cm) 0.2 cm 10/16/24 1252 Wound Volume (cm^3) 0.084 cm^3 10/16/24 1252 Wound Healing % 58 10/16/24 1252 Drainage Description Serosanguineous 10/16/24 1252 Odor None 10/09/24 1235 Drainage Amount Moderate 10/16/24 1252 Treatments Cleansed 10/16/24 1252 Primary Dressing Collagen;Xeroform 10/16/24 1252 Secondary Dressing Silicone foam borders (multiple sizes) 10/02/24 0914 Secured with Medfix tape 10/16/24 1252 Dressing Status New dressing 10/16/24 1252 Undermining 0.4 cm 10/09/24 1200 Undermining Clock Position of Wound 9;10;11;12 10/09/24 1200 Cardiovascular: Pedal pulses palpable bilateral MUSCULOSKELETAL: Severe pes planus right greater than left HEENT: Normal Respiratory: Nonlabored breathing. Normal respirations. Lab Results Component Value Date WBC 6.7 09/24/2024 HGB 11.7 09/24/2024 HCT 36.8 09/24/2024 MCV 96.8 09/24/2024 PLT 215 09/24/2024 Lab Results Component Value Date GLUCOSE 238 (H) 09/24/2024 CALCIUM 8.8 09/24/2024 NA 139 09/24/2024 K 4.4 09/24/2024 CO2 19 (L) 09/24/2024 CL 111 (H) 09/24/2024 BUN 35 (H) 09/24/2024 CREATININE 1.07 09/24/2024 Lab Results Component Value Date HGBA1C 12.2 (H) 09/20/2024 No results found for: "SEDRATE" No results found for: "CRP" No results found for: "LABGRAM" No components found for: "LABAERO" No components found for: "LABANAE" No results found for this or any previous visit from the past 365 days. IMPRESSION 1. 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 Diabetic ulcer of right foot associated with diabetes mellitus due to underlying condition, withnecrosis of muscle, unspecified part of foot (HCC) 3. Uncontrolled type 2 diabetes mellitus with hyperglycemia (HCC) 4. Pes planus of both feet 5. 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 6. 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) PLAN: Orders Placed This Encounter Procedures Wound Care OP Follow-up Follow up in 1 week Dressing Order: Collagen, Xeroform; Three times per week; Medfix tape Order Specific Question: Primary Dressing Answer: Collagen Order Specific Question: Primary Dressing Answer: Xeroform Order Specific Question: Dressing Frequency Answer: Three times per week Order Specific Question: Secured With Answer: Medfix tape Debridement Wound/Incision 09/18/24 Diabetic Ulcer Foot Right Performed by: Nallely Alas DPM Authorized by: Nallely Alas DPM Consent Consent obtained? verbal Consent given by: patient Risks discussed? procedural risks discussed Debridement Details Performed by: physician Debridement type: surgical Level of debridement: subcutaneous tissue Pain control: lidocaine 2% Pain control administration type: topical Pre-debridement measurements Length (cm): 0.7 Width (cm): 0.6 Depth (cm): 0.2 Surface Area (cm^2): 0.42 Post-debridement measurements Length (cm): 1.2 Width (cm): 1.1 Depth (cm): 0.4 Percent debrided: 100% Surface Area (cm^2): 1.32 Area Debrided (cm^2): 1.32 Volume (cm^3): 0.53 Tissue and other material debrided: dermis, epidermis and subcutaneous tissue Devitalized tissue debrided: callus, fibrin, necrotic debris and slough Instrument(s) utilized: curette and blade Bleeding: small Hemostasis obtained with: pressure Procedural pain (0-10): 0 Post-procedural pain: 0 Response to treatment: procedure was tolerated well No follow-ups on file. Nallely Alas DPM 10/16/2024 3:22 PM documented in this [facility]03-07-2025 Hospital Discharge instructions* Patient Instructions* Liss Acevedo RN - 10/16/2024 12:45 PM EST Follow-up Appointments: Return Appointment in 1 week. Call [place] at [phone], [facility] at [phone], or [facility] at [phone]. Will write script for: Yanke AFO Right foot, Diabetic shoes/inserts Edema/Swelling: Avoid standing for long periods of time, elevate legs to the level of the heart or above 30 minutesdaily and/or when sitting. Offloading: Avoid pressure to wound site as often as possible. ANY AMOUNT OF PRESSURE WILL DELAY WOUND HEALING. Offloading wound site is extremely important to assist in wound healing. Avoid friction and shearing, do not scoot or slide. Lift your weight up when repositioning. Bathing/Showering: OK to shower but do not soak or submerge wound. Use an antibacterial soap, such as dial to cleanse wound area once the rest of the body has been washed. Nutrition: Follow diet per physician instructions such as increasing protein intake to promote wound healing 100 gram of protein a day If diabetic-Monitor blood sugars to help with wound healing. High blood sugars can affect wound healing. Wound Care: R Plantar foot (x3 weekly) Keep insert on as long as possible Cleanse wound with mild soap and water and pat dry Apply Collagen to wound bed Apply Xeroform over Collagen Apply Medifix tape Signs and symptoms of wound infection: - fever - flu-like symptoms - pus or unusual drainage - foul odor - worsening of wound - spreading redness or warmth around the wound - increased pain - increasing and/or uncontrolled blood sugar for diabetics Please call the wound center at [phone] if you are experiencing this. If we are closed and youare unable to reach us in person please go to the ER documented in this [facility]03-06-2025 History of Present illness Narrative* Kraig Wright MD - 10/15/2024 11:00 AM EST Images from the original note were not included. [facility] [place] - [address] [address] Dept: [phone] Dept Loc: [phone] Visit type: [facility] Hospital Follow Up Visit Date: 10/15/2024 Reason for Visit: Memory Loss Assessment and Plan 1. Memory loss - MR brain wo contrast - Mental status change with cognitive deficits in the following areas: short term memory, executive functions, language, attention, orientation, and insight which have been slowly progressive over time with subsequent impairment in function. History and exam are concerning for Mild to moderate stage stage Alzheimer's Dementia. Have ordered brain MRI to complete the assessment. Will review results at the Family Summary Conference. -Son report's that patient's glucoses have been high today due to missing insulin/medications yesterday. They did administer insulin and her medications this morning. -MOCA was low at 10/30. This doesn't fit with her recent MMSE score of 27/30 (that would typically correlate with a score in the low 20s). Today's hyperglycemia can be impacting her score. Would recommend retesting at the beginning of the family summary visit (when glucoses are hopefully under better control). -Can consider starting donepezil at family summary visit -Consider video monitoring in home to help with safety -Consider locked pill dispenser -May ultimately need a caregiver visiting daily to administer the long-acting insulin Follow up in about 4 weeks (around 11/12/2024). Subjective HPI: Hanna Nelson is a 84 y.o. female with past medical history of diabetes, hyperlipidemia, hypertension, hypothyroidism, afib, neuropathy, chronic foot wound, charcot joint who presents to the [facility] for a comprehensive geriatric assessment. The patient is new to me but seen by the Geriatric Inpatient Consult team. Chart Review: -Patient was admitted to the hospital from 09/18 to 09/23 with uncontrolled diabetes with significant hyperglycemia. -She was initially started on insulin. However, family was concerned she would be unable to manage insulin at home. The insulin was stopped and she was discharged on metformin and glipizide -Seen by geriatric inpatient consult team: Patient's sons report a cognitive decline over the past 8 months. Will get words mixed up and trouble completing a sentence. They are not sure if she is taking her medications correctly. MMSE 27/30. Clock 09/18. TSH within normal limits Vitamin b12 332 No neuroimaging to review -Patient established with new PCP on 09/30 (Dr Medrano). -PCP mentions that patient was quite confused prior to hospitalization. This did improve during andafter hospitalization. Patient does struggle to manage her medications independently. Family is filling her pill container and will call her to make sure medications are being taken. Does seem that afamily member has been administering her insulin to her. PCP stopped the glimepiride to avoid hypoglycemia. History obtained from caregiver(s): Son Hi -Cognitive issues started about a year ago. Worsened with time. Hard to tell how much of the cognitive issues are related to hyperglycemia -She does have short term memory issues -Her cognition has overall been better since her hospitalization due to improved glucose control. However, family discovered this AM that she had not taken her medications/insulin yesterday. Glucose was 399 this morning. They helped her take her medications today. -Patient has a continuous glucose monitor. Results go to son's phone. -Has a calendar Severity (as seen by the provider based on caregiver history): mild, Duration- symptoms started 1 year ago, Timing- slowly progressive, , worse at night but mostly when glucoses were not controlled, cognition fluctuates day to day: some good days, some bad days, Context- (give details of any "yes" answers) history of stroke- No, history of head trauma- no, history of seizures- no, history of hospitalization or surgery that made memory worse- no History of cancer? - no Hearing Loss? - no Hearing Aids? -no Associated signs and symptoms- delusions or hallucinations- No hallucinations. No delusions paranoia- No Trouble sleeping? No Appetite? Good Any over the counter sleep or allergy medications? No Symptoms of REM-related sleep disorder- Does he/she appear to "act out their dreams" while sleeping(punch or flail arms, shout or scream? unknown sleeps alone Mood: Positive. Mobility: Poor. Using walker. Going to be getting Physical Therapy History obtained from patient: -Memory: OK. She has not noticed issues. -No language difficulties. -No issues with appliances -OK with managing medications. Mood: Fine. No anxiety. Sleep: No trouble sleeping. Appetite: Normal. "Love to cook and love to eat". Physically feeling well. Doesn't feel sick or nauseated today. Doesn't feel like her brain is in a fog. Able to identify 9-1-1: no "I'd call 0" Reviewed progress notes completed by ÁNGEL (AMITA)and social work. Allergies Allergen Reactions Tape Rash Current Outpatient Medications Medication Sig Dispense Refill Alcohol Swabs (Alcohol Prep) 70 % pads 1 Pad 3 times daily. 200 each 2 amLODIPine (Norvasc) 5 MG tablet Take by mouth daily. apixaban (Eliquis) 5 MG tablet Take 5 mg by mouth 2 times daily. atenolol (Tenormin) 50 MG tablet Take 50 mg by mouth 2 times daily. atorvastatin (Lipitor) 40 MG tablet Take 40 mg by mouth daily. Blood Glucose Monitoring Suppl (Blood Glucose Monitor System) w/Device kit Check glucose 3x daily 1kit 0 ergocalciferol (Vitamin D2) 1.25 MG (37091 UT) capsule Take 1 capsule (1.25 mg) by mouth 1 (one) time per week for 7 doses. 4 capsule 1 fenofibrate (Triglide) 160 MG tablet Take 160 mg by mouth daily. gabapentin (Neurontin) 300 MG capsule Take 300 mg by mouth 2 times daily. glucose blood test strip Use as instructed 100 each 0 insulin degludec (Tresiba FlexTouch) 100 UNIT/ML injection Inject 30 Units under the skin Nightly. 30 mL 3 Lancets Check glucose x3 daily 100 each 3 levothyroxine (Tirosint) 112 MCG capsule Take by mouth every morning (before breakfast). linaGLIPtin (Tradjenta) 5 MG tablet Take 1 tablet (5 mg) by mouth daily. 30 tablet 3 lisinopril 20 MG tablet Take by mouth daily. metFORMIN (Glucophage) 500 MG tablet Take 1 tablet (500 mg) by mouth 2 times daily (with meals). (Patient taking differently: Take 1,000 mg by mouth 2 times daily (with meals).) 60 tablet 6 oxybutynin (Ditropan) 5 MG tablet Take 10 mg by mouth daily. Current Facility-Administered Medications Medication Dose Route Frequency Provider Last Rate Last Admin lidocaine (Uro-Jet) 2 % gel Topical PRN Marielos Blair, 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 - NUCLEAR PLANT INSTRUMENT TECHNICIAN Past Medical History: Diagnosis Date Atrial fibrillation (HCC) Diabetes mellitus (HCC) Hyperlipidemia Hypertension Hypothyroidism Neuropathy Social History Tobacco Use Smoking status: Former Current packs/day: 0.00 Types: Cigarettes Quit date: 1964 Years since quittin.2 Smokeless tobacco: Never Substance Use Topics Alcohol use: Not Currently Past Surgical History: Procedure Laterality Date BACK SURGERY CHOLECYSTECTOMY No family history on file. No family status information on file. Objective Vitals: 10/15/24 1047 10/15/24 1051 BP: 124/75 102/69 BP Location: Left arm Left arm Patient Position: Sitting Standing Pulse: 73 76 Weight: 199 lb 6.4 oz (90.4 kg) Height: 5' 10.75" (1.797 m) Wt Readings from Last 3 Encounters: 10/15/24 199 lb 6.4 oz (90.4 kg) 09/17/24 200 lb (90.7 kg) Physical Exam Constitutional: General: She is not in acute distress. Appearance: She is not ill-appearing. Comments: Does have stains on shirt/pants HENT: Head: Normocephalic and atraumatic. Cardiovascular: Rate and Rhythm: Normal rate and regular rhythm. Heart sounds: No murmur heard. No friction rub. No gallop. Pulmonary: Effort: Pulmonary effort is normal. Breath sounds: Normal breath sounds. No decreased breath sounds, wheezing, rhonchi or rales. Musculoskeletal: Right lower leg: No edema. Left lower leg: No edema. Feet: Comments: Charcot foot changes noted in ankle (shoes and socks not removed today. She is known to have wounds on feet. Follows with wound care) Skin: Comments: When I walked in the room, I noted blood on the lower aspect of her ear. The area was cleaned with soap and water. She had a small, superficial cut near the antitragus. Bandage was applied Neurological: Mental Status: She is alert. Coordination: [id number] Test normal. 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 Cognition and Memory: Cognition is impaired. Memory is impaired. Comments: Answers vaguely Data Reviewed and Summarized Old records reviewed and summarized here: See above Labs: Lab Results Component Value Date WBC 6.7 09/24/2024 HGB 11.7 09/24/2024 HCT 36.8 09/24/2024 MCV 96.8 09/24/2024 PLT 215 09/24/2024 Lab Results Component Value Date NA 139 09/24/2024 K 4.4 09/24/2024 CL 111 (H) 09/24/2024 CO2 19 (L) 09/24/2024 BUN 35 (H) 09/24/2024 CREATININE 1.07 09/24/2024 GLUCOSE 238 (H) 09/24/2024 CALCIUM 8.8 09/24/2024 PROT 7.3 09/18/2024 BILITOT 0.4 09/18/2024 ALKPHOS 102 09/18/2024 AST 20 09/18/2024 ALT 16 09/18/2024 Lab Results Component Value Date TSH 3.34 09/21/2024 No results found for: "FOLATE" Lab Results Component Value Date [id number] 332 09/21/2024 No results found for: "RPR" Testing: The following tests were performed at today's visit and scanned in to the chart: MoCA score: 10, MIS score: 5/15 Clock drawing score: 3/7 PHQ-9 score: 0 JAXON score: 0 I independently reviewed the [place] Cognitive Assessment from 10/15/24. Test scanned in to the chart. I spent total time of 60 minutes face to face with the patient and/or family discussing the diagnosis and importance of compliance with the treatment plan as well as documenting on the day of the visit. In addition, that total time includes the following: -Reviewing previous notes, -Reviewing labs, -Reviewing previous cognitive tests, -Obtaining and/or reviewing separately obtained history, -Ordering prescription medications, tests and procedures, -Counseling/educating the patient/family/caregiver, -Documenting clinical information in the patients ectronic record, -Coordination of care for the patient, and -Performing a medically appropriate exam and/or evaluation * Brooke Friedman - 10/15/2024 11:00 AM EST Review of Systems Constitutional: Negative for appetite change, fatigue and unexpected weight change. HENT: Negative for dental problem, hearing loss and trouble swallowing. Eyes: Negative for visual disturbance. Gastrointestinal: Negative for constipation and diarrhea. Genitourinary: Negative for difficulty urinating and dysuria. Musculoskeletal: Positive for arthralgias and gait problem. Negative for back pain. Neurological: Negative for tremors, speech difficulty and weakness. Psychiatric/Behavioral: Negative for agitation, confusion, dysphoric mood, hallucinations and sleepdisturbance. The patient is not nervous/anxious. * MEREDITH Todd - 10/15/2024 11:00 AM EST Senior Services/Geriatrics Social History Present at visit: son Hi, patient Marital status: Children: 2 sons, 1 daughter (1 daughter in [place], Hi in [place], Jose in [facility] area) Living arrangement: lives alone in [facility], moved from [place] in May 2024. 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 Someone calling daily. Mayconsider video monitoring. Community resources: None Caregiver stressors: concerns for poor diabetes management, resulting health complications Goals for care: memory/health issues impacting independence As a Caregiver, What Matters Most to You: Disease education, Patient remains independent/in community, and Managing caregiver stress >>10/15/24 hospitalized due to uncontrolled blood sugars in Sep 2024. Inconsistent with what stories she remembers about appointments or family stories. SW suggested increasing medication management. SW suggested use of docudose and family overseeing filling pill box and supervising pt takingmeds. Family described that patient's IADLS, including difficulty with using technology and appointments doesn't not fluctuate on her blood sugars. SW educated on confirming advanced directives and reviewing healthcare wishes. Recommended providing completed documents to healthcare providers and uploading into [employer] if available. Functional Status (I: Independent, A: Assisted, D: Dependent) ADLs I A D Notes Bathing [x] [] [] For several years, has only does sink baths due to fear of falling in shower. Consistent with personal care, sink bathes. Has walk in shower. Dressing [x] [] [] Doesn't always change daily - changes after 2 days, wearing dirty shirt/pants today because forget about appointment. Toileting [x] [] [] May have diarrhea related to medication, will manage with depends. Family will help with cleaning. Rare issue. Generally, no concerns Transfers [x] [] [] Slow, may take multiple efforts Feeding [x] [] [] No issues Ambulation [x] [] [] Rollator - may be reluctant to use Assistive devices: grab bars, rollator IADLs I A D Telephone [] [x] [] Trouble adapting to new TV (sometimes only watching previews, can't turn on cable), has cell phone, not as good at [employer] - never good at tech. Can make/answer calls. Can be confused with texting. Confuses FB messages and texts. Son makes appointments/provides reminders. Inconsistent with using calendar or remembering details of reminders. (Not affected by BS spikes). Didn't know 911. Transportation [] [] [x] Driving safety concerns: Not currently driving, son has car.. family provides all rides. Shopping [] [x] [] Son/daughter do all shopping. Patient sometimes offers a list. Generally family makes all choices that support a diabetic friendly diabetic Meal prep [] [x] [] Son/daughter doing most of meal prep for patient. Patient may help with cooking, can follow steps. Family suspects she may not be eating enough or sleeping through meals. Housework [] [x] [] Patient does laundry, tries to wash dishes (has always missed spots). Family helping with deep cleaning. Medications [] [x] [] Son Hi filling pill box. Family calling with reminders some of the time. Patient likely missing doses, including incorrectly managing insulin. Family monitoring Glucose monitor - daughter can remotely monitor. history of poorly managed diabetes. Finances [] [x] [] Patient working with family to set up online [employer], sons are on bank account Educational materials will be provided at next visit: Memory/Cognitive Ability Next Steps After an Alzheimer's Diagnosis Alzheimer's Association info/hotline Safe Return Dementia Coaching Support Group list 10 Tips to Keeping Independent Memory Tips (mild) 5Ms Dealing with Dementia Stages for Memory Loss 10 Ways to Love Your Brain Executive Function Problems Exercise/Activities Dementia exercise tips Activities/Reminiscence guide Communication/Behaviors Communication - All Stages Communication Tips Redirecting Behaviors Coping with Dementia Behaviors Apathy Caregiver Stress Coping Techniques for Caregiver Stress Home Care/Facility Options Adult Day Center list Home Care Agency list Community Programs [facility] Video Monitoring Diet Healthy [facility] for Older Adults [facility] Home Delivered Meals list Injury Prevention/Home Safety [facility] Home Safety Checklist [facility] Mobility for Adults Medications Medication Safety/Dispensers Sleep Getting a Good Night's Sleep ([facility]) Advanced Directives Conversation Project Workbook MEREDITH Todd 10/15/24 11:55 AM documented in this [facility]02-28-2025 History of Present illness Narrative* Nallely Alas, DPM - 10/09/2024 12:45 PM EST Images from the original note were not included. Wound Care Visit CHIEF COMPLAINT: Chief Complaint Patient presents with Wound Care Patient is seen in the wound clinic concerning an ulceration on her right foot the patient relates she has had this for many years off and on. HISTORY OF PRESENT ILLNESS: The patient is a 84 y.o. female with significant past medical history of Past Medical History: Diagnosis Date Atrial fibrillation (HCC) Diabetes mellitus (HCC) Hyperlipidemia Hypertension Hypothyroidism Neuropathy Past Medical History: Past Medical History: Diagnosis Date Atrial fibrillation (HCC) Diabetes mellitus (HCC) Hyperlipidemia Hypertension Hypothyroidism Neuropathy Past Surgical History: Past Surgical History: Procedure Laterality Date BACK SURGERY CHOLECYSTECTOMY Current Medications: Current Outpatient Medications: Alcohol Swabs (Alcohol Prep) 70 % pads, 1 Pad 3 times daily., Disp: 200 each, Rfl: 2 amLODIPine (Norvasc) 5 MG tablet, Take by mouth daily., Disp: , Rfl: apixaban (Eliquis) 5 MG tablet, Take 5 mg by mouth 2 times daily., Disp: , Rfl: atenolol (Tenormin) 50 MG tablet, Take by mouth daily., Disp: , Rfl: atorvastatin (Lipitor) 40 MG tablet, Take 40 mg by mouth daily., Disp: , Rfl: Blood Glucose Monitoring Suppl (Blood Glucose Monitor System) w/Device kit, Check glucose 3x daily,Disp: 1 kit, Rfl: 0 ergocalciferol (Vitamin D2) 1.25 MG (25415 UT) capsule, Take 1 capsule (1.25 mg) by mouth 1 (one) time per week for 7 doses., Disp: 4 capsule, Rfl: 1 fenofibrate (Triglide) 160 MG tablet, Take 160 mg by mouth daily., Disp: , Rfl: gabapentin (Neurontin) 300 MG capsule, Take 300 mg by mouth 2 times daily., Disp: , Rfl: glucose blood test strip, Use as instructed, Disp: 100 each, Rfl: 0 insulin degludec (Tresiba FlexTouch) 100 UNIT/ML injection, Inject 30 Units under the skin Nightly., Disp: 30 mL, Rfl: 3 Lancets, Check glucose x3 daily, Disp: 100 each, Rfl: 3 levothyroxine (Tirosint) 112 MCG capsule, Take by mouth every morning (before breakfast)., Disp: , Rfl: linaGLIPtin (Tradjenta) 5 MG tablet, Take 1 tablet (5 mg) by mouth daily., Disp: 30 tablet, Rfl: 3 lisinopril 20 MG tablet, Take by mouth daily., Disp: , Rfl: metFORMIN (Glucophage) 500 MG tablet, Take 1 tablet (500 mg) by mouth 2 times daily (with meals)., Disp: 60 tablet, Rfl: 6 oxybutynin (Ditropan) 5 MG tablet, Take by mouth., Disp: , Rfl: Current Facility-Administered Medications: lidocaine (Uro-Jet) 2 % gel, , Topical, PRN, Marielos Blair APRN - NUCLEAR PLANT INSTRUMENT TECHNICIAN Allergies: Allergies Allergen Reactions Tape Rash Social History: Social History Socioeconomic History Marital status: Spouse name: Not on file Number of children: Not on file Years of education: Not on file Highest education level: Not on file Occupational History Not on file Tobacco Use Smoking status: Former Current packs/day: 0.00 Types: Cigarettes Quit date: 1965 Years since quittin.2 Smokeless tobacco: Never Vaping Use Vaping status: Never Used Substance and Sexual Activity Alcohol use: Not Currently Drug use: Never Sexual activity: Not on file Other Topics Concern Not on file Social History Narrative Not on file Social Drivers of Health Financial Resource Strain: Not on file Food Insecurity: Not on file Transportation Needs: No Transportation Needs (09/18/2024) PRAPARE - Transportation Lack of Transportation (Medical): No Lack of Transportation (Non-Medical): No Physical Activity: Not on file Stress: Not on file Social Connections: Not on file Intimate Partner Violence: Not At Risk (09/18/2024) Humiliation, Afraid, Rape, and Kick questionnaire Fear of Current or Ex-Partner: No Emotionally Abused: No Physically Abused: No Sexually Abused: No Housing Stability: Unknown (09/18/2024) Housing Stability Vital Sign Unable to Pay for Housing in the Last Year: No Number of Times Moved in the Last Year: Not on file Homeless in the Last Year: No Family History: No family history on file. REVIEW OF SYSTEMS: Review of Systems 10 point review of system negative other than above HPI PHYSICAL EXAM: Physical Exam Vitals: BP (!) 145/71 Pulse 67 Temp 36.1 C (97 F) Resp 18 General Appearance: Alert, oriented, no acute distress Neurologic: No cranial nerve deficit, gait, coordination and speech normal. 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 Wound/Incision 09/18/24 Diabetic Ulcer Foot Right (Active) Wound Image 10/09/24 1235 Site Assessment Granulation;Pale;[place] 10/09/24 1235 Linda-Wound Assessment Calloused 10/09/24 1235 Wound Length (cm) 0.7 cm 10/09/24 1235 Wound Width (cm) 0.8 cm 10/09/24 1235 Wound Surface Area (cm^2) 0.56 cm^2 10/09/24 1235 Wound Depth (cm) 0.2 cm 10/09/24 1235 Wound Volume (cm^3) 0.112 cm^3 10/09/24 1235 Wound Healing % 44 10/09/24 1235 Drainage Description Serosanguineous 10/09/24 1235 Odor None 10/09/24 1235 Drainage Amount Moderate 10/09/24 1235 Treatments Cleansed 10/09/24 1235 Primary Dressing Collagen;Xeroform;Other (Comment) 10/09/24 1235 Secondary Dressing Silicone foam borders (multiple sizes) 10/02/24 0914 Secured with Medfix tape 10/09/24 1235 Dressing Status New dressing;Clean, dry & intact 10/09/24 1235 Undermining 0.4 cm 10/09/24 1200 Undermining Clock Position of Wound 9;10;11;12 10/09/24 1200 Number of days: 20 Dermatology: There is a dermal ulcer plantar right medial midfoot. No surrounding erythema. No edema. No malodor. Hyperkeratotic halo is present. Base is granular. Wound: Wound/Incision 09/18/24 Diabetic Ulcer Foot Right (Active) Wound Image 10/09/24 1235 Site Assessment Granulation;Pale;[place] 10/09/24 1235 Linda-Wound Assessment Calloused 10/09/24 1235 Wound Length (cm) 0.7 cm 10/09/24 1235 Wound Width (cm) 0.8 cm 10/09/24 1235 Wound Surface Area (cm^2) 0.56 cm^2 10/09/24 1235 Wound Depth (cm) 0.2 cm 10/09/24 1235 Wound Volume (cm^3) 0.112 cm^3 10/09/24 1235 Wound Healing % 44 10/09/24 1235 Drainage Description Serosanguineous 10/09/24 1235 Odor None 10/09/24 1235 Drainage Amount Moderate 10/09/24 1235 Treatments Cleansed 10/09/24 1235 Primary Dressing Collagen;Xeroform;Other (Comment) 10/09/24 1235 Secondary Dressing Silicone foam borders (multiple sizes) 10/02/24 0914 Secured with Medfix tape 10/09/24 1235 Dressing Status New dressing;Clean, dry & intact 10/09/24 1235 Undermining 0.4 cm 10/09/24 1200 Undermining Clock Position of Wound 9;10;11;12 10/09/24 1200 Cardiovascular: Pedal pulses are palpable bilateral MUSCULOSKELETAL: Severe pes planus bilaterally left greater than right. Forefoot is abducted bilateral. Unable to passively place foot in neutral position. HEENT: Within normal limits Respiratory: Normal respirations Lab Results Component Value Date WBC 6.7 09/24/2024 HGB 11.7 09/24/2024 HCT 36.8 09/24/2024 MCV 96.8 09/24/2024 PLT 215 09/24/2024 Lab Results Component Value Date GLUCOSE 238 (H) 09/24/2024 CALCIUM 8.8 09/24/2024 NA 139 09/24/2024 K 4.4 09/24/2024 CO2 19 (L) 09/24/2024 CL 111 (H) 09/24/2024 BUN 35 (H) 09/24/2024 CREATININE 1.07 09/24/2024 Lab Results Component Value Date HGBA1C 12.2 (H) 09/20/2024 No results found for: "SEDRATE" No results found for: "CRP" No results found for: "LABGRAM" No components found for: "LABAERO" No components found for: "LABANAE" No results found for this or any previous visit from the past 365 days. IMPRESSION 1. 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 Uncontrolled type 2 diabetes mellitus with hyperglycemia (HCC) 3. 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 Pes planus of both feet 5. 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 Nallely Alas DPM 10/09/2024 3:10 PM * Liss Acevedo RN - 10/09/2024 12:45 PM EST Assessments Nursing Assessment/Reassessment Score (check box all that apply) Reassessment of Co-morbidities (includes updates in patient status) 10 [x] Wound and Skin Assessment/Reassessment 5 [x] Reassessment of Adherence to Treatment Plan Simple Wound Assessment / Reassessment - one wound 5 [x] Complex Wound Assessment - multiple wounds (# of: 0 ) multiply by 5 to get score 0 [] Dermatologic / Skin Assessment (not related to wound area) 10 [x] Focused Assessment Circumferential Edema Measurements - multi extremities (# of: 0) multiply by 5 to get score 0 [] Nutritional Assessment/Counseling/Intervention 10 [] Lower Extremity Assessment (monofilament, tuning fork, pulses) 5 [] Peripheral Arterial Disease Assessment (using hand-held doppler) 10 [] Ostomy and/or Continence Assessment & Care Incontinence Assessment and Management 10 [] Ostomy Care Assessment and Management (repouching, etc) 20 [] Process Coordination of Care Simple Patient/Family Education for ongoing care 15 [x] Complex (extensive) Patient/Family Education for ongoing of care 20 [] Staff obtains Consent, Records, Test Results/Process Orders 10 [] Staff telephones [facility], Nursing Homes/Clarify Orders 10 [] Routine Transfer to another Facility (non-emergent condition) 10 [] Routine Hospital Admission (non-emergent condition) 10 [] New Admissions/Insurance Auth/Ordering NPWT, skin substitute, etc. 15 [] Emergency Hospital Admission (emergent condition) 20 [] Simple Discharge Coordination 10 [] Complex (extensive) Discharge Coordination 15 [] Special Needs Pediatric / Minor Patient Management 10 [] Isolation Patient Management 10 [] Hearing/Language/Visual Special Needs 15 [] Assessment of Community Assistance (transportation, discharge planning) 15 [] Additional Assistance / Altered Mentation 15 [] Support Surface Assessment (bed, cushion, seat) 15 [] Interventions Wound Cleansing/Measurement Simple Wound Cleansing - one wound 5 [x] Complex Wound Cleansing - multiple wounds (# of: 0) multiply by 5 to get score 0 [] Wound Imaging (photographs - any number of wounds) 5 [x] Wound Tracing (instead of photographs) 5 [] Simple Wound Measurements - one wound 5 [x] Complex Wound Measuremnts - multiple wounds (#of: 0) multiply by 5 to get score 0 [] Wound Dressings Small Wound Dressing - one or multiple wounds (# of: 1 ) multiply by 10 to get score 10 [x] Medium Wound Dressing - one or multiple wounds (# of: 0 ) multiply by 15 to get score 0 [] Large Wound Dressing - one or multiple wounds (# of: 0) multiply by 20 to get score 0 [] Application of Medications - topical 5 [x] Application of Medication - injection 10 [] Miscellaneous External Ear Exam Specimen Collection (culture, biopsies, blood, body fluids, etc) 5 [] Specimen/Culture sent or taken to lab for analysis 5 [] Patient Transfer (multiple staff/Man lift) 10 [] Simple Staple/Suture Removal (25 or less) 5 [] Complex Staple/Suture Removal (26 or more) 10 [] Hypo/Hyperglycemic Management 10 [] Ankle/Brachial Index (RIKA) 15 [] Vital Signs 5 [x] Total Points - Use to Determine Level of Clinic Visit 80 Points Larsen: Level 1 (1-35 Points) Level 2 (40-75 Points) Level 3 (80-115 Points) Level 4 (120-155 Points) Level 5 (160 or more Points) documented in this [facility]02-28-2025 Hospital Discharge instructions* Patient Instructions* Liss Acevedo RN - 10/09/2024 12:45 PM EST Follow-up Appointments: Return Appointment in 1 week. Call [place] [facility] at [phone], [facility] at [phone], or [facility] at [phone]. Will write script for: Yanke AFO Right foot, Diabetic shoes/inserts Edema/Swelling: Avoid standing for long periods of time, elevate legs to the level of the heart or above 30 minutesdaily and/or when sitting. Offloading: Avoid pressure to wound site as often as possible. ANY AMOUNT OF PRESSURE WILL DELAY WOUND HEALING. Offloading wound site is extremely important to assist in wound healing. Avoid friction and shearing, do not scoot or slide. Lift your weight up when repositioning. Bathing/Showering: OK to shower but do not soak or submerge wound. Use an antibacterial soap, such as dial to cleanse wound area once the rest of the body has been washed. Nutrition: Follow diet per physician instructions such as increasing protein intake to promote wound healing 100 gram of protein a day If diabetic-Monitor blood sugars to help with wound healing. High blood sugars can affect wound healing. Wound Care: R Plantar foot (x3 weekly) Keep insert on as long as possible Cleanse wound with mild soap and water and pat dry Apply Collagen to wound bed Apply Xeroform over Collagen Apply Medifix tape Signs and symptoms of wound infection: - fever - flu-like symptoms - pus or unusual drainage - foul odor - worsening of wound - spreading redness or warmth around the wound - increased pain - increasing and/or uncontrolled blood sugar for diabetics Please call the wound center at [phone] if you are experiencing this. 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 [facility] Wound Care Consult, Progress, and Procedure Note Hanna Nelson AGE: 84 y.o. GENDER: female : 1940 EPISODE DATE: Subjective: Patient presents for evaluation of wound HISTORY of PRESENT ILLNESS HPI Hanna Nelson is a 84 y.o. female who presents today for wound/ulcer evaluation. History of Wound Context: patient here with family member for diabetic ulcer. 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 She recently moved from [place] to here to be closer to daughter. She does not have a Grocery Deliverer and daughter would like her to get established with provider d/t recent hx of LE infections. Patientstates that her blood sugars are getting better as she is now on injectable insulin. Wound on rightplantar foot with no evidence of cellulitis. Interval History: Patient presents today for follow up on wound/ulcer's progression. The patient is currently not on antibiotics. Current dressing care includes see RN notes Contributing Factors: DM and neuropathy PAST MEDICAL HISTORY Past Medical History: Diagnosis Date Atrial fibrillation (HCC) Diabetes mellitus (HCC) Hyperlipidemia Hypertension Hypothyroidism Neuropathy PAST SURGICAL HISTORY Past Surgical History: Procedure Laterality Date BACK SURGERY CHOLECYSTECTOMY FAMILY HISTORY No family history on file. SOCIAL HISTORY Social History Tobacco Use Smoking status: Former Current packs/day: 0.00 Types: Cigarettes Quit date: 1965 Years since quittin.1 Smokeless tobacco: Never Vaping Use Vaping status: Never Used Substance Use Topics Alcohol use: Not Currently Drug use: Never ALLERGIES Allergies Allergen Reactions Tape Rash MEDICATIONS Current Outpatient Medications on File Prior to Encounter Medication Sig Dispense Refill Alcohol Swabs (Alcohol Prep) 70 % pads 1 Pad 3 times daily. 200 each 2 amLODIPine (Norvasc) 5 MG tablet Take by mouth daily. apixaban (Eliquis) 5 MG tablet Take 5 mg by mouth 2 times daily. atenolol (Tenormin) 50 MG tablet Take by mouth daily. atorvastatin (Lipitor) 40 MG tablet Take 40 mg by mouth daily. Blood Glucose Monitoring Suppl (Blood Glucose Monitor System) w/Device kit Check glucose 3x daily 1kit 0 ergocalciferol (Vitamin D2) 1.25 MG (97860 UT) capsule Take 1 capsule (1.25 mg) by mouth 1 (one) time per week for 7 doses. 4 capsule 1 fenofibrate (Triglide) 160 MG tablet Take 160 mg by mouth daily. gabapentin (Neurontin) 300 MG capsule Take 300 mg by mouth 2 times daily. glucose blood test strip Use as instructed 100 each 0 insulin degludec (Tresiba FlexTouch) 100 UNIT/ML injection Inject 30 Units under the skin Nightly. 30 mL 3 Lancets Check glucose x3 daily 100 each 3 levothyroxine (Tirosint) 112 MCG capsule Take by mouth every morning (before breakfast). linaGLIPtin (Tradjenta) 5 MG tablet Take 1 tablet (5 mg) by mouth daily. 30 tablet 3 lisinopril 20 MG tablet Take by mouth daily. metFORMIN (Glucophage) 500 MG tablet Take 1 tablet (500 mg) by mouth 2 times daily (with meals). 60tablet 6 oxybutynin (Ditropan) 5 MG tablet Take by mouth. No current facility-administered medications on file prior to encounter. REVIEW OF SYSTEMS Patient denies CP,SOB, tolerating diet NO F/C otherwise negative ROS accept noted in HPI Objective: BP 133/71 Pulse 66 Temp 36.5 C (97.7 F) Resp 18 Wt Readings from Last 3 Encounters: 09/17/24 200 lb (90.7 kg) PHYSICAL EXAM Visit Vitals BP 133/71 Pulse 66 Temp 36.5 C (97.7 F) Resp 18 GEN: NAD Alert appears stated age PULM: Breathing without difficulty CV: Stable GI: Soft ND NT tolerating diet EXT: see wound notes Right foot - vascular intact, wound present with large linda wound callus and large red tissue, no evidence of cellulitis, deformity of foot noted. Left 2nd toe eschar debrided with healed tissue, no open wound Wound Assessment: Wound/Incision 09/18/24 Diabetic Ulcer Foot Right (Active) Wound Image 10/02/24913 Site Assessment Granulation;Red 10/02/24913 Linda-Wound Assessment Calloused;Maceration 10/02/24913 Wound Length (cm) 1 cm 10/02/24913 Wound Width (cm) 1 cm 10/02/24913 Wound Surface Area (cm^2) 1 cm^2 10/02/24913 Wound Depth (cm) 0.2 cm 10/02/24913 Wound Volume (cm^3) 0.2 cm^3 10/02/24913 Drainage Description Serosanguineous 10/02/24913 Odor None 10/02/24913 Drainage Amount Moderate 10/02/24913 Treatments Cleansed 10/02/24913 LABS Lab Results Component Value Date WBC 6.7 09/24/2024 HGB 11.7 09/24/2024 HCT 36.8 09/24/2024 MCV 96.8 09/24/2024 PLT 215 09/24/2024 Lab Results Component Value Date NA 139 09/24/2024 K 4.4 09/24/2024 CL 111 (H) 09/24/2024 CO2 19 (L) 09/24/2024 BUN 35 (H) 09/24/2024 CREATININE 1.07 09/24/2024 No results found for: "PROTIME", "INR" No results found for: "PREALBUMIN" No components found for: "LABALBU" No results found for: "SEDRATE" Assessment: Wound: DFU(muscle) Ulcer: see above Procedure Note Indications: Based on my examination of this patient's wound(s)/ulcer(s) today, debridement is required to promote healing and evaluate the extent healing. Debridement Wound/Incision 09/18/24 Diabetic Ulcer Foot Right Performed by: ALEJANDRINA Ramesh CNP Authorized by: ALEJANDRINA Ramesh CNP Consent Consent obtained? verbal Consent given by: patient Risks discussed? procedural risks discussed Time out called at 10/02/2024 10:33 AM Immediately prior to the procedure a time out was called and the performing provider verified the correct patient, procedure, equipment, technical support 1 software engineer, and site/side marked as required. Debridement Details Performed by: JUNIOR PROGRAMMER Debridement type: surgical Level of debridement: subcutaneous tissue Pain control: lidocaine 2% Pain control administration type: topical Pre-debridement measurements Length (cm): 1 Width (cm): 1 Depth (cm): 0.2 Surface Area (cm^2): 1 Post-debridement measurements Length (cm): 1 Width (cm): 1 Depth (cm): 0.2 Percent debrided: 100% Surface Area (cm^2): 1 Area Debrided (cm^2): 1 Volume (cm^3): 0.2 Tissue and other material debrided: subcutaneous tissue Devitalized tissue debrided: biofilm, callus and slough Instrument(s) utilized: curette Bleeding: small Hemostasis obtained with: pressure Procedural pain (0-10): 0 Post-procedural pain: 0 Response to treatment: procedure was tolerated well Plan: Patient examined and evaluated Patient understands all that has been explained to her and wishes to proceed with current treatment. Patient understands all risks, benefits, procedures, linda-operative management, and possible complications. All questions answered and no guarantees made or implied. Treatment: Orders Placed This Encounter Procedures DME Order for wound supplies Collagen 30 days, daily Foam dressing SAP 30 days, daily Order Specific Question: Specify: Answer: wound supplies Order Specific Question: The face to face evaluation was performed on Answer: 10/02/2024 Order Specific Question: Additional providers who completed a face to face evaluation of the patient: Answer: MARIELOS BLAIR [[id number]] [facility] Standing Status: Standing Number of Occurrences: 1 Referral Priority: Routine Referral Type: Consultation Referral Reason: Specialty Services Required Requested Specialty: Wound Care Number of Visits Requested: 1 Wound Care OP Follow-up Follow up in 1 week Dressing Order: Collagen; Daily; Silicone foam borders (multiple sizes) Order Specific Question: Primary Dressing Answer: Collagen Order Specific Question: Dressing Frequency Answer: Daily Order Specific Question: Secondary Dressing Answer: Silicone foam borders (multiple sizes) -chart reviewed -collagen, dry dressing daily/PRN -f/up 1 week-Dr Alas -avoid pressure to foot wound -nutrition support -Call if problems/concerns -business card given to patient for Dr Alas private office for diabetic foot care Written patient dismissal instructions given to patient and signed by patient or POA. * Liss Acevedo RN - 10/02/2024 9:15 AM EST Assessments Nursing Assessment/Reassessment Score (check box all that apply) General Physical Exam 20 [x] Comprehensive Assessment (history, ROS, Risk Assessments, wound hx, etc) 25 [x] Wound and skin Assessment/Reassessment Dermatologic / Skin Assessment (not related to wound area) 10 [x] Ostomy and/or Continence Assessment & Care Incontinence Assessment and Management 10 [] Ostomy Care Assessment and Management (repouching, etc) 20 [] Process Coordination of Care Simple Patient/Family Education for ongoing care 15 [x] Complex (extensive) Patient/Family Education for ongoing of care 20 [] Staff obtains Consent, Records, Test Results/Process Orders 10 [x] Staff telephones [facility], Nursing Homes/Clarify Orders 10 [] Routine Transfer to another Facility (non-emergent condition) 10 [] Routine Hospital Admission (non-emergent condition) 10 [] New Admissions/Insurance Auth/Ordering NPWT, skin substitute, etc. 15 [x] Emergency Hospital Admission (emergent condition) 20 [] Special Needs Pediatric / Minor Patient Management 10 [] Isolation Patient Management 10 [] Hearing/Language/Visual Special Needs 15 [] Assessment of Community Assistance (transportation, discharge planning) 15 [] Additional Assistance / Altered Mentation 15 [] Support Surface Assessment (bed, cushion, seat) 15 [] Interventions Miscellaneous External Ear Exam 5 [] Patient Transfer (multiple staff/Man lift) 10 [] Simple Staple/Suture Removal (25 or less) 5 [] Complex Staple/Suture Removal (26 or more) 10 [] Hypo/Hyperglycemic Management 10 [] Ankle/Brachial Index (RIKA) 15 [] Total Points - Use to Determine Level of Clinic Visit 95 Points Larsen: Level 1 (1-35 Points) Level 2 (40-75 Points) Level 3 (80-115 Points) Level 4 (120-155 Points) Level 5 (160 or more Points) documented in this [facility]02-21-2025 History of Present illness Narrative* Marielos AndrewsMary Carmen Blair, 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 - NUCLEAR PLANT INSTRUMENT TECHNICIAN - 10/02/2024 9:15 AM ESTAssociated Order(s): Debridement Post-Procedure Diagnose(s): 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 [facility], Progress, and Procedure Note Hanna Nelson AGE: 84 y.o. GENDER: female : 1940 EPISODE DATE: Subjective: Patient presents for evaluation of wound HISTORY of PRESENT ILLNESS HPI Hanna Nelson is a 84 y.o. female who presents today for wound/ulcer evaluation. History of Wound Context: patient here with family member for diabetic ulcer. 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 She recently moved from [place] to here to be closer to daughter. She does not have a Grocery Deliverer and daughter would like her to get established with provider d/t recent hx of LE infections. Patientstates that her blood sugars are getting better as she is now on injectable insulin. Wound on rightplantar foot with no evidence of cellulitis. Interval History: Patient presents today for follow up on wound/ulcer's progression. The patient is currently not on antibiotics. Current dressing care includes see RN notes Contributing Factors: DM and neuropathy PAST MEDICAL HISTORY Past Medical History: Diagnosis Date Atrial fibrillation (HCC) Diabetes mellitus (HCC) Hyperlipidemia Hypertension Hypothyroidism Neuropathy PAST SURGICAL HISTORY Past Surgical History: Procedure Laterality Date BACK SURGERY CHOLECYSTECTOMY FAMILY HISTORY No family history on file. SOCIAL HISTORY Social History Tobacco Use Smoking status: Former Current packs/day: 0.00 Types: Cigarettes Quit date: 1965 Years since quittin.1 Smokeless tobacco: Never Vaping Use Vaping status: Never Used Substance Use Topics Alcohol use: Not Currently Drug use: Never ALLERGIES Allergies Allergen Reactions Tape Rash MEDICATIONS Current Outpatient Medications on File Prior to Encounter Medication Sig Dispense Refill Alcohol Swabs (Alcohol Prep) 70 % pads 1 Pad 3 times daily. 200 each 2 amLODIPine (Norvasc) 5 MG tablet Take by mouth daily. apixaban (Eliquis) 5 MG tablet Take 5 mg by mouth 2 times daily. atenolol (Tenormin) 50 MG tablet Take by mouth daily. atorvastatin (Lipitor) 40 MG tablet Take 40 mg by mouth daily. Blood Glucose Monitoring Suppl (Blood Glucose Monitor System) w/Device kit Check glucose 3x daily 1kit 0 ergocalciferol (Vitamin D2) 1.25 MG (25913 UT) capsule Take 1 capsule (1.25 mg) by mouth 1 (one) time per week for 7 doses. 4 capsule 1 fenofibrate (Triglide) 160 MG tablet Take 160 mg by mouth daily. gabapentin (Neurontin) 300 MG capsule Take 300 mg by mouth 2 times daily. glucose blood test strip Use as instructed 100 each 0 insulin degludec (Tresiba FlexTouch) 100 UNIT/ML injection Inject 30 Units under the skin Nightly. 30 mL 3 Lancets Check glucose x3 daily 100 each 3 levothyroxine (Tirosint) 112 MCG capsule Take by mouth every morning (before breakfast). linaGLIPtin (Tradjenta) 5 MG tablet Take 1 tablet (5 mg) by mouth daily. 30 tablet 3 lisinopril 20 MG tablet Take by mouth daily. metFORMIN (Glucophage) 500 MG tablet Take 1 tablet (500 mg) by mouth 2 times daily (with meals). 60tablet 6 oxybutynin (Ditropan) 5 MG tablet Take by mouth. No current facility-administered medications on file prior to encounter. REVIEW OF SYSTEMS Patient denies CP,SOB, tolerating diet NO F/C otherwise negative ROS accept noted in HPI Objective: BP 133/71 Pulse 66 Temp 36.5 C (97.7 F) Resp 18 Wt Readings from Last 3 Encounters: 09/17/24 200 lb (90.7 kg) PHYSICAL EXAM Visit Vitals BP 133/71 Pulse 66 Temp 36.5 C (97.7 F) Resp 18 GEN: NAD Alert appears stated age PULM: Breathing without difficulty CV: Stable GI: Soft ND NT tolerating diet EXT: see wound notes Right foot - vascular intact, wound present with large linda wound callus and large red tissue, no evidence of cellulitis, deformity of foot noted. Left 2nd toe eschar debrided with healed tissue, no open wound Wound Assessment: Wound/Incision 09/18/24 Diabetic Ulcer Foot Right (Active) Wound Image 10/02/24913 Site Assessment Granulation;Red 10/02/24913 Linda-Wound Assessment Calloused;Maceration 10/02/24913 Wound Length (cm) 1 cm 10/02/24913 Wound Width (cm) 1 cm 10/02/24913 Wound Surface Area (cm^2) 1 cm^2 10/02/24913 Wound Depth (cm) 0.2 cm 10/02/24913 Wound Volume (cm^3) 0.2 cm^3 10/02/24913 Drainage Description Serosanguineous 10/02/24913 Odor None 10/02/24913 Drainage Amount Moderate 10/02/24913 Treatments Cleansed 10/02/24913 LABS Lab Results Component Value Date WBC 6.7 09/24/2024 HGB 11.7 09/24/2024 HCT 36.8 09/24/2024 MCV 96.8 09/24/2024 PLT 215 09/24/2024 Lab Results Component Value Date NA 139 09/24/2024 K 4.4 09/24/2024 CL 111 (H) 09/24/2024 CO2 19 (L) 09/24/2024 BUN 35 (H) 09/24/2024 CREATININE 1.07 09/24/2024 No results found for: "PROTIME", "INR" No results found for: "PREALBUMIN" No components found for: "LABALBU" No results found for: "SEDRATE" Assessment: Wound: DFU(muscle) Ulcer: see above Procedure Note Indications: Based on my examination of this patient's wound(s)/ulcer(s) today, debridement is required to promote healing and evaluate the extent healing. Debridement Wound/Incision 09/18/24 Diabetic Ulcer Foot Right Performed by: ALEJANDRINA Ramesh CNP Authorized by: ALEJANDRINA Ramesh CNP Consent Consent obtained? verbal Consent given by: patient Risks discussed? procedural risks discussed Time out called at 10/02/2024 10:33 AM Immediately prior to the procedure a time out was called and the performing provider verified the correct patient, procedure, equipment, technical support 1 software engineer, and site/side marked as required. Debridement Details Performed by: JUNIOR PROGRAMMER Debridement type: surgical Level of debridement: subcutaneous tissue Pain control: lidocaine 2% Pain control administration type: topical Pre-debridement measurements Length (cm): 1 Width (cm): 1 Depth (cm): 0.2 Surface Area (cm^2): 1 Post-debridement measurements Length (cm): 1 Width (cm): 1 Depth (cm): 0.2 Percent debrided: 100% Surface Area (cm^2): 1 Area Debrided (cm^2): 1 Volume (cm^3): 0.2 Tissue and other material debrided: subcutaneous tissue Devitalized tissue debrided: biofilm, callus and slough Instrument(s) utilized: curette Bleeding: small Hemostasis obtained with: pressure Procedural pain (0-10): 0 Post-procedural pain: 0 Response to treatment: procedure was tolerated well Plan: Patient examined and evaluated Patient understands all that has been explained to her and wishes to proceed with current treatment. Patient understands all risks, benefits, procedures, linda-operative management, and possible complications. All questions answered and no guarantees made or implied. Treatment: Orders Placed This Encounter Procedures DME Order for wound supplies Collagen 30 days, daily Foam dressing SAP 30 days, daily Order Specific Question: Specify: Answer: wound supplies Order Specific Question: The face to face evaluation was performed on Answer: 10/02/2024 Order Specific Question: Additional providers who completed a face to face evaluation of the patient: Answer: MARIELOS BLAIR [[id number]] [facility] Standing Status: Standing Number of Occurrences: 1 Referral Priority: Routine Referral Type: Consultation Referral Reason: Specialty Services Required Requested Specialty: Wound Care Number of Visits Requested: 1 Wound Care OP Follow-up Follow up in 1 week Dressing Order: Collagen; Daily; Silicone foam borders (multiple sizes) Order Specific Question: Primary Dressing Answer: Collagen Order Specific Question: Dressing Frequency Answer: Daily Order Specific Question: Secondary Dressing Answer: Silicone foam borders (multiple sizes) -chart reviewed -collagen, dry dressing daily/PRN -f/up 1 week-Dr Alas -avoid pressure to foot wound -nutrition support -Call if problems/concerns -business card given to patient for Dr Alas private office for diabetic foot care Written patient dismissal instructions given to patient and signed by patient or POA. * Liss Acevedo RN - 10/02/2024 9:15 AM EST Assessments Nursing Assessment/Reassessment Score (check box all that apply) General Physical Exam 20 [x] Comprehensive Assessment (history, ROS, Risk Assessments, wound hx, etc) 25 [x] Wound and skin Assessment/Reassessment Dermatologic / Skin Assessment (not related to wound area) 10 [x] Ostomy and/or Continence Assessment & Care Incontinence Assessment and Management 10 [] Ostomy Care Assessment and Management (repouching, etc) 20 [] Process Coordination of Care Simple Patient/Family Education for ongoing care 15 [x] Complex (extensive) Patient/Family Education for ongoing of care 20 [] Staff obtains Consent, Records, Test Results/Process Orders 10 [x] Staff telephones [facility], Nursing Homes/Clarify Orders 10 [] Routine Transfer to another Facility (non-emergent condition) 10 [] Routine Hospital Admission (non-emergent condition) 10 [] New Admissions/Insurance Auth/Ordering NPWT, skin substitute, etc. 15 [x] Emergency Hospital Admission (emergent condition) 20 [] Special Needs Pediatric / Minor Patient Management 10 [] Isolation Patient Management 10 [] Hearing/Language/Visual Special Needs 15 [] Assessment of Community Assistance (transportation, discharge planning) 15 [] Additional Assistance / Altered Mentation 15 [] Support Surface Assessment (bed, cushion, seat) 15 [] Interventions Miscellaneous External Ear Exam 5 [] Patient Transfer (multiple staff/Man lift) 10 [] Simple Staple/Suture Removal (25 or less) 5 [] Complex Staple/Suture Removal (26 or more) 10 [] Hypo/Hyperglycemic Management 10 [] Ankle/Brachial Index (RIKA) 15 [] Total Points - Use to Determine Level of Clinic Visit 95 Points Larsen: Level 1 (1-35 Points) Level 2 (40-75 Points) Level 3 (80-115 Points) Level 4 (120-155 Points) Level 5 (160 or more Points) documented in this [facility]02-21-2025 Hospital Discharge instructions* Patient Instructions* Liss Acevedo RN - 10/02/2024 9:15 AM EST Follow-up Appointments: Return Appointment in 1 week. Call [place] wound center at [phone], [facility] at [phone], or [facility] center at [phone]. Edema/Swelling: Avoid standing for long periods of time, elevate legs to the level of the heart or above 30 minutesdaily and/or when sitting. Offloading: Avoid pressure to wound site as often as possible. ANY AMOUNT OF PRESSURE WILL DELAY WOUND HEALING. Offloading wound site is extremely important to assist in wound healing. Avoid friction and shearing, do not scoot or slide. Lift your weight up when repositioning. Bathing/Showering: OK to shower but do not soak or submerge wound. Use an antibacterial soap, such as dial to cleanse wound area once the rest of the body has been washed. Nutrition: Follow diet per physician instructions such as increasing protein intake to promote wound healing 100 gram of protein a day If diabetic-Monitor blood sugars to help with wound healing. High blood sugars can affect wound healing. Wound Care: R Plantar foot Cleanse wound with mild soap and water and pat dry Apply Collagen to wound bed Foam Dressing Signs and symptoms of wound infection: - fever - flu-like symptoms - pus or unusual drainage - foul odor - worsening of wound - spreading redness or warmth around the wound - increased pain - increasing and/or uncontrolled blood sugar for diabetics Please call the wound center at [phone] if you are experiencing this. If we are closed and youare unable to reach us in person please go to the ER documented in this [facility]02-21-2025 Hospital Discharge instructions* Patient Instructions* Liss Acevedo RN - 10/02/2024 9:15 AM EST Follow-up Appointments: Return Appointment in 1 week. Call [place] wound center at [phone], [facility] at [phone], or [facility] center at [phone]. Edema/Swelling: Avoid standing for long periods of time, elevate legs to the level of the heart or above 30 minutesdaily and/or when sitting. Offloading: Avoid pressure to wound site as often as possible. ANY AMOUNT OF PRESSURE WILL DELAY WOUND HEALING. Offloading wound site is extremely important to assist in wound healing. Avoid friction and shearing, do not scoot or slide. Lift your weight up when repositioning. Bathing/Showering: OK to shower but do not soak or submerge wound. Use an antibacterial soap, such as dial to cleanse wound area once the rest of the body has been washed. Nutrition: Follow diet per physician instructions such as increasing protein intake to promote wound healing 100 gram of protein a day If diabetic-Monitor blood sugars to help with wound healing. High blood sugars can affect wound healing. Wound Care: R Plantar foot (x3 weekly) Cleanse wound with mild soap and water and pat dry Apply Collagen to wound bed Foam Dressing Signs and symptoms of wound infection: - fever - flu-like symptoms - pus or unusual drainage - foul odor - worsening of wound - spreading redness or warmth around the wound - increased pain - increasing and/or uncontrolled blood sugar for diabetics Please call the wound center at [phone] if you are experiencing this. If we are closed and youare unable to reach us in person please go to the ER documented in this [facility]02-21-2025 Miscellaneous Notes* Addendum Note - Dayna Medley RN - 10/02/2024 9:15 AM Nickyounter addended by: Dayna Medley RN on: 10/02/2024 2:26 PM Actions taken: Charge Capture section accepted documented in this [facility]02-21-2025 Miscellaneous Notes* Addendum Note - Dayna Medley RN - 10/02/2024 9:15 AM ESTEncounter addended by: Dayna Medley RN on: 10/02/2024 2:26 PM Actions taken: Charge Capture section accepted * Addendum Note - Liss Acevedo RN - 10/02/2024 9:15 AM ESTEncounter addended by: Liss Acevedo RN on: 10/07/2024 8:01 AM Actions taken: Clinical Note Signed, Order list changed, Diagnosis association updated documented in this [facility]02-21-2025 Note* Addendum Note - Dayan Medley RN - 10/02/2024 9:15 AM ESTEncounter addended by: Dayna Medley RN on: 10/02/2024 2:26 PM Actions taken: Charge Capture section accepted [facility]02-21-2025 Note* Addendum Note - Dayna Medley RN - 10/02/2024 9:15 AM ESTEncounter addended by: Dayna Medley RN on: 10/02/2024 2:26 PM Actions taken: Charge Capture section accepted [facility]02-21-2025 Note* Addendum Note - Dayna Medley RN - 10/02/2024 9:15 AM ESTEncounter addended by: Dayna Medley RN on: 10/02/2024 2:26 PM Actions taken: Charge Capture section accepted [place] [address]-21-2025 Note* Addendum Note - Dayna Medley RN - 10/02/2024 9:15 AM ESTEncounter addended by: Dayna Medley RN on: 10/02/2024 2:26 PM Actions taken: Charge Capture section [id number]* Addendum Note - Dayna Medley RN - 10/02/2024 9:15 AM ESTEncounter addended by: Dayna Medley RN on: 10/02/2024 2:26 PM Actions taken: Charge Capture section accepted [id number] [facility]* Addendum Note - Liss Acevedo RN - 10/02/2024 9:15 AM ESTEncounter addended by: Liss Acevedo RN on: 10/07/2024 8:01 AM Actions taken: Clinical Note Signed, Order list changed, Diagnosis association updated [facility]02-18-2025 Telephone encounter Note* Telephone Encounter - Priscila Mcclendon LPN - 09/29/2024 11:12 AM EST Spoke with pts son Hi. She is being seen at [facility] in [place] tomorrow. Will cancel future new patient appt with our practice. . [address]18-2025 Miscellaneous Notes* Telephone Encounter - Priscila Mcclendon LPN - 09/29/2024 11:12 AM EST Spoke with pts son Hi. She is being seen at [facility] in [place] tomorrow. Will cancel future new patient appt with our practice. . * Telephone Encounter - Kraig Martinez - 09/25/2024 9:03 AM EST Pt has appt at [facility]. Called patient for clarification, pt advised to call her son. LVM for son asking to call back. * Telephone Encounter - Harinder Temple - 09/23/2024 4:01 PM EST JUNIOR PROGRAMMER appt cancelled by MANAGED SERVICES SALES CONSULTANT, Will defer for 3 days and follow up * Telephone Encounter - Radha Urbina RN - 09/23/2024 9:36 AM EST S: Hospital provider requesting earlier new patient appointment. B: Pt currently hospitalized with DM, uncontrolled. A: Pt currently has new patient appointment scheduled 11/09/24. Message received "we can't get hhc until she establishes with pcp and she is having problems with adm her insulin. the family was wanting some other resources for home . can you provide them with that?" R: Office called to assist with sooner New patient appointment to be schedule do to above issues. New patient appointment schedule 09/29/[address] Ojeda. [id number] Telephone encounter Note* Telephone Encounter - Kraig Martinez - 09/25/2024 9:03 AM EST Pt has appt at [facility]. Called patient for clarification, pt advised to call her son. LVM for son asking to call back. [id number] Miscellaneous Notes* Telephone Encounter - Kraig Martinez - 09/25/2024 9:03 AM EST Pt has appt at [facility]. Called patient for clarification, pt advised to call her son. LVM for son asking to call back. * Telephone Encounter - Harinder Temple - 09/23/2024 4:01 PM EST JUNIOR PROGRAMMER appt cancelled by MANAGED SERVICES SALES CONSULTANT, Will defer for 3 days and follow up * Telephone Encounter - Radha Urbina RN - 09/23/2024 9:36 AM EST S: Hospital provider requesting earlier new patient appointment. B: Pt currently hospitalized with DM, uncontrolled. A: Pt currently has new patient appointment scheduled 11/09/24. Message received "we can't get hhc until she establishes with pcp and she is having problems with adm her insulin. the family was wanting some other resources for home . can you provide them with that?" R: Office called to assist with sooner New patient appointment to be schedule do to above issues. New patient appointment schedule 09/29/[address] Ojeda. documented in this [facility]02-13-2025 Telephone encounter Note* Telephone Encounter - ALEJANDRINA Urias CNP - 09/24/2024 4:08 PM EST Hi Tiffany, The family changed their mind and are agreeable to insulin for discharge. Can we continue Javier 3 plus? It is set up on her phone and doesn't require reader. Thanks! [employer] Phone: 1(986) 696-978102-13-2025 Miscellaneous Notes* Telephone Encounter - ALEJANDRINA Urias CNP - 09/24/2024 4:08 PM EST Edmond Allen, The family changed their mind and are agreeable to insulin for discharge. Can we continue Javier 3 plus? It is set up on her phone and doesn't require reader. Thanks! * Telephone Encounter - ALEJANDRINA Urias CNP - 09/23/2024 4:03 PM EST Edmond Allen, This patient refused insulin for home going. She won't qualify for Javier sensors. Can you cancel this request? Thanks! * Telephone Encounter - ALEJANDRINA Urias CNP - 09/21/2024 5:59 PM EST Can we see if patient would qualify for Javier 3 Plus. Patient is on Medicare and starting insulin 1injection daily. Thanks! documented in this [facility]02-13-2025 Plan of care note* Care Plan - Sawyer Peoples RN - 09/24/2024 2:49 PM EST Problem: Problem Interventions Goal: Assess Nutritional Intake 09/24/2024 1449 by Sawyer Peoples RN Outcome: Adequate for Discharge 09/24/2024 1020 by Sawyer Peoples RN Outcome: Progressing Goal: Promote nutritional intake 09/24/2024 1449 by Sawyer Peoples RN Outcome: Adequate for Discharge 09/24/2024 1020 by Sawyer Peoples RN Outcome: Progressing Problem: Pain - Adult Goal: Verbalizes/displays adequate comfort level or baseline comfort level Outcome: Adequate for Discharge Problem: Safety - Adult Goal: Free from fall injury Outcome: Adequate for Discharge Problem: Discharge Planning Goal: Discharge to home or other facility with appropriate resources Outcome: Adequate for Discharge Problem: Chronic Conditions and Co-morbidities Goal: Patient's chronic conditions and co-morbidity symptoms are monitored and maintained or improved Outcome: Adequate for Discharge [id number] Miscellaneous Notes* Care Plan - Sawyer Peoples RN - 09/24/2024 2:49 PM EST Problem: Problem Interventions Goal: Assess Nutritional Intake 09/24/2024 1449 by Sawyer Peoples RN Outcome: Adequate for Discharge 09/24/2024 1020 by Sawyer Peoples RN Outcome: Progressing Goal: Promote nutritional intake 09/24/2024 1449 by Sawyer Peoples RN Outcome: Adequate for Discharge 09/24/2024 1020 by Sawyer Peoples RN Outcome: Progressing Problem: Pain - Adult Goal: Verbalizes/displays adequate comfort level or baseline comfort level Outcome: Adequate for Discharge Problem: Safety - Adult Goal: Free from fall injury Outcome: Adequate for Discharge Problem: Discharge Planning Goal: Discharge to home or other facility with appropriate resources Outcome: Adequate for Discharge Problem: Chronic Conditions and Co-morbidities Goal: Patient's chronic conditions and co-morbidity symptoms are monitored and maintained or improved Outcome: Adequate for Discharge * Care Coordination - MEREDITH Gonzalez - 09/24/2024 11:06 AM EST Asked by [facility] to reach out to pts son, Hi, to discuss any decision that may have been made yesterday about their choice for care after pt dc's. I called Hi and left a vm requesting a return call to discuss above. * Care Plan - Sawyer Peoples RN - 09/24/2024 10:20 AM EST Problem: Problem Interventions Goal: Assess Nutritional Intake Outcome: Progressing Goal: Promote nutritional intake Outcome: Progressing * Care Plan - Celine Claudio RN - 09/24/2024 1:47 AM EST Problem: Pain - Adult Goal: Verbalizes/displays adequate comfort level or baseline comfort level Outcome: Progressing Flowsheets Taken 09/24/2024146 Verbalizes/displays adequate comfort level or baseline comfort level: Encourage patient to monitor pain and request assistance Assess pain using appropriate pain scale Administer analgesics based on type and severity of pain and evaluate response Notify Licensed Independent Practitioner if interventions unsuccessful or patient reports new pain Taken 09/23/20241999 Verbalizes/displays adequate comfort level or baseline comfort level: Encourage patient to monitor pain and request assistance Assess pain using appropriate pain scale Administer analgesics based on type and severity of pain and evaluate response Notify Licensed Independent Practitioner if interventions unsuccessful or patient reports new pain Taken 09/23/2024 1858 Verbalizes/displays adequate comfort level or baseline comfort level: Encourage patient to monitor pain and request assistance Assess pain using appropriate pain scale Administer analgesics based on type and severity of pain and evaluate response Notify Licensed Independent Practitioner if interventions unsuccessful or patient reports new pain Problem: Safety - Adult Goal: Free from fall injury Outcome: Progressing Flowsheets (Taken 09/24/2024146) Free from fall injury: Instruct family/caregiver on patient safety Problem: Chronic Conditions and Co-morbidities Goal: Patient's chronic conditions and co-morbidity symptoms are monitored and maintained or improved Outcome: Progressing Flowsheets (Taken 09/24/2024146) Care Plan - Patient's Chronic Conditions and Co-Morbidity Symptoms are Monitored and Maintained or Improved: Monitor and assess patient's chronic conditions and comorbid symptoms for stability, deterioration, or improvement * Care Coordination - MEREDITH Jhaveri - 09/23/2024 2:03 PM EST S/W, resource I did meet with patient Son Hi for discussion of next steps and resources. Hi concerned about patient inability to manage her Insulin, this is a new regiment for her. StaffRN did support that the patient is not grasping how to administer her insulin. Chart reviewed, therapy recommends HHC vs Home with assist PRN. I did review this with Son Hi. I did review that Medicare/facilities may not consider just the Diabetic teaching as skilled under Medicare for payment. I did indicate we could attempt to see if this would be accepted. Son stated theywould consider Private Paying for facility as well if needed. They would like this to be a short term arrangement. I did review Assisted Living, Adult Day Centers and Private Duty Caregivers. Son noted he feels they would prefer the patient to return eventually to her Condo, as she just bought it and just moved here. He was more ameniable to Private Pay caregivers coming in to help. Patient was a [place], did discuss possible aide and attendance assist as well. Son indicated the patient would not qualify for Medicaid as she does have some assets. SNF listing, Private Duty Caregiver listing and [facility] info provided. Son is agreeable to me making a referral to [facility]. At this time, plan is for Son to discuss SNFs with his Sister. I did update TCC of this and did provide TCC number as well as my number. * Care Coordination - MEREDITH Gonzalez - 09/23/2024 1:54 PM EST I received a secure chat from [facility] requesting I cancel appt with family practice. family is now going to follow with Dr. Medrano in [place] next week. Sent secure chat to [facility] scheduling requesting appt be cancelled. * Care Coordination - Chikis Carson RN - 09/23/2024 1:47 PM EST Received message from Dr. Medrano office that they are able to get patient in next week. Did updatethat will need [facility] set up once establishes with Dr. Medrano. Did update central scheduling to please cancel appt with family practice as family would like to follow with Dr. Medrano upon discharge. .E lectronically signed by Chikis Carson RN on 09/23/2024 at 1:49 PM * Care Plan - Sawyer Peoples RN - 09/23/2024 11:03 AM EST Problem: Problem Interventions Goal: Assess Nutritional Intake Outcome: Progressing Goal: Promote nutritional intake Outcome: Progressing * Care Coordination - MEREDITH Gonzalez - 09/23/2024 10:36 AM EST I received a message from [facility] informing -patient has new patient appt with family practice on Nov 09. is there any way we can get it moved up as she is newly diagnosed with insulin dependent diabetes? Working with [facility] Scheduling: They were able to get new [facility] have patient arrive 15 mins early with ID, insurance card and list of current medications. TCC informed and appt place in pts AVS/ * Care Plan - Celine Claudio RN - 09/23/2024 1:59 AM EST Problem: Pain - Adult Goal: Verbalizes/displays adequate comfort level or baseline comfort level Outcome: Progressing Flowsheets (Taken 09/23/2024157) Verbalizes/displays adequate comfort level or baseline comfort level: Encourage patient to monitor pain and request assistance Assess pain using appropriate pain scale Administer analgesics based on type and severity of pain and evaluate response Notify Licensed Independent Practitioner if interventions unsuccessful or patient reports new pain Problem: Safety - Adult Goal: Free from fall injury Outcome: Progressing Flowsheets (Taken 09/23/2024157) Free from fall injury: Instruct family/caregiver on patient safety Problem: Chronic Conditions and Co-morbidities Goal: Patient's chronic conditions and co-morbidity symptoms are monitored and maintained or improved Outcome: Progressing Flowsheets (Taken 09/23/2024157) Care Plan - Patient's Chronic Conditions and Co-Morbidity Symptoms are Monitored and Maintained or Improved: Monitor and assess patient's chronic conditions and comorbid symptoms for stability, deterioration, or improvement * Care Plan - Marietta Dailey RN - 09/22/2024 4:59 AM EST Problem: Problem Interventions Goal: Assess Nutritional Intake 09/22/2024458 by Marietta Dailey RN Outcome: Progressing 09/22/2024348 by Marietta Dailey RN Outcome: Progressing Goal: Promote nutritional intake 09/22/2024458 by Marietta Dailey RN Outcome: Progressing 09/22/2024348 by Marietta Dailey RN Outcome: Progressing * Care Plan - Marietta Dailey RN - 09/22/2024 3:49 AM EST Problem: Problem Interventions Goal: Assess Nutritional Intake Outcome: Progressing Goal: Promote nutritional intake Outcome: Progressing * Home Care - Bella Meléndez RN - 09/21/2024 1:33 PM EST Communication Professor following case for Discharge Needs. Spoke to patient and 2 sons at bedside in the room. Introduced myself and reason for visit. Explained home care services, requirements for home care. And answered questions. Pt does not currently have PCP. Pt recently moved to [facility] and hasn't established with new PCP as of yet. Pt states she has anappt. In October. Son's asking if appt could be moved up? I informed son's/pt, I would let the TCC know and she or SW would follow up with them. No other needs voiced. PACC signing off. documented in this [place] [id number] History of Present illness Narrative* Angelina Boyle OT - 09/24/2024 1:10 PM EST Images from the original note were not included. OCCUPATIONAL THERAPY [facility]'s Name/MRN: Hanna Nelson ([id number]) Date: 09/24/2024 Chart reviewed. Orders received. Primary nurse states pt is being discharged today and has been up in room at indep level. OT orders completed. Angelina Boyle OT * Negra Perkins RD - 09/24/2024 12:24 PM EST Nutrition Assessment Type and Reason for Visit: Reassess Nutrition Recommendations/Plan: Suggest 60 gm CHO /meal if blood sugar remains elevated Provided CHO Control diet info per pt request -declines review. Pt has RD contact number and encouraged to call with questions Please continue to record meal intake in RN Flowsheet RD to monitor PO intake, labs, weight, skin status/wound healing -follow up Malnutrition Assessment: Malnutrition Status: At risk for malnutrition (Comment) (age, uti , unc dm) as previously assessed Context: Acute Illness Nutrition Assessment: patient admitted for poorly controlled T2DM with hyperglycemia. Endocrinology following- pt startedon insulin. Geriatrics, Podiatry and Wound Care assessed. Pt observed eating and tolerating lunch reports good appetite and states she is being discharged today. Pt requested info regarding CHO Controlled diet states I'm very familiar with the diet but I haven't had to watch my carbs so closely". Provided Eating Healthy with Diabetes and CHO Counting for People with Diabetes handouts -pt declined review at this time. RD contact number provided and pt encouraged to call with questions. Estimated Daily Nutrient Needs: Energy Requirements Based On: Kcal/kg Weight Used for Energy Requirements: [place] Weight for Energy Calculation (kg): 68 kg Total Energy Requirements (kcals/day): [id number] (25-28) Weight Used for Protein Requirements: [place] Weight in Kg Used for Protein Requirements: 68 kg Estimated Total Protein (g/day): 1-1.2 or 68-82 Estimated Daily Total Fluid (ml/day): 1.7-1.9 liters Nutrition Related Findings: nonpitting jennifer LE edema. bm 09/22. bun 35, bgluc 238, 241, a1c 12.2 on 09/20/24. Insulin, Vit D. unable to obtain bed scale wt Wound Type: Multiple (Left 2nd toe: DFU -stable. Left Heel: Callus. Right Plantar foot: DFU (Muscle) debrided at bedside 09/23/24 per Wound Care notes) Current Nutrition Therapies: Adult diet Regular; 5 carb choices (75 gm/meal) Current Oral Intake Average Meal Intake: 76-100% (observed at lunch today) Average Supplements Intake: None Ordered, Refusing to take Anthropometric Measures: Height: 177.8 cm (5' 10") Current Body Weight: 90.7 kg (200 lb) [place] Body Weight (lbs) (Calculated): 150 lbs [place] Body Weight (Kg) (Calculated): 68 kg % [place] Body Weight (Calculated): 133.3 % BMI (kg/m2) (Calculated): 28.7 Nutrition Diagnosis: Altered nutrition-related lab values related to endocrine dysfuntion as evidenced by lab values Increased nutrient needs related to increase demand for energy/nutrients as evidenced by wounds Nutrition Interventions: Nutrition Education/Counseling: Education initiated (handouts provided -pt declines review) Coordination of Nutrition Care: Continue to monitor while inpatient Plan of Care discussed with: Patient Goals: Previous Goal Met: Progressing toward Goal(s) Goals: PO intake 75% or greater, by next RD assessment Specify Other Goals: glucose and K will be controlled - Nutrition Monitoring and Evaluation: Behavioral-Environmental Outcomes: None Identified Food/Nutrient Intake Outcomes: Food and Nutrient Intake Physical Signs/Symptoms Outcomes: Biochemical Data, GI Status, Nausea or Vomiting, Fluid Status or Edema, Hemodynamic Status, Nutrition Focused Physical Findings, Skin, Weight Discharge Planning: Continue current diet Ngera Perkins RD Contact: *[phone] or via Secure Chat * Herman Pepper DO - 09/23/2024 5:21 PM EST Hospitalist Progress Note 09/23/2024 [phone]: Please page me ([phone]) for patient care issues. [phone]: Please page [facility] Hospitalist for any issues. Subjective: Admit Date: 09/18/2024 PCP: No primary care provider on file. Room#: B4-458/B4-458 B Interval History: patient admitted for poorly controlled DM Type 2 with hyperglycemia. No overnightissues. Denies chest pain, sob, abdominal pain, nausea, vomiting, diarrhea, constipation, fevers, or chills. Adult diet Regular; 5 carb choices (75 gm/meal) 24HR INTAKE/OUTPUT: No intake or output data in the 24 hours ending 09/23/24 1721 Past Medical History: Past Medical History: Diagnosis Date Atrial fibrillation (HCC) Diabetes mellitus (HCC) Hyperlipidemia Hypertension Hypothyroidism Neuropathy LABS: CBC: Recent Labs 09/21/245709/22/24 0532 09/23/24 0245 WBC 7.8 7.0 6.7 RBC 3.80 3.97 3.88 HGB 11.7 12.2 11.7 HCT 36.5 38.1 37.3 MCV 96.1 96.0 96.1 RDW 13.3 13.7 13.6 PLT 222 225 229 BMP: Recent Labs 09/21/245709/22/24 0532 09/23/24 0245 NA 136 139 139 K 4.3 4.3 4.3 CL 108* 108* 111* CO2 19* 21* 19* BUN 29* 29* 35* CREATININE 1.04 1.04 1.08 GLUCOSE 265* 224* 255* CALCIUM 8.6* 8.9 9.0 ANIONGAP 9 10 9 LIVER PROFILE:No results for input(s): "AST", "ALT", "BILITOT", "ALKPHOS", "PROT" in the last 72 hours. No lab exists for component: "LABALBU" PT/INR: No results for input(s): "PROTIME", "INR" in the last 72 hours. CARDIAC ENZYMES: No results for input(s): "TROPONINI" in the last 72 hours. Procalcitonin: No results found for: "PROCAL" COVID-19 PCR: No results for input(s): "COVID19" in the last 72 hours. Objective: Vitals: BP 121/66 (BP Location: Left arm, Patient Position: Lying) Pulse 61 Temp (!) 35.7 C (96.3 F) (Temporal) Resp 18 Ht 5' 10" (1.778 m) SpO2 99% BMI 28.70 kg/m Pulse Ox: SpO2 Av.3 % Min: 97 % Max: 99 % Supplemental O2: General appearance: No apparent distress, appears stated age and cooperative with exam, female in NAD Respiratory: Normal respiratory effort. CTA BL, no wheezing Cardiovascular: Regular rate and rhythm with no murmur Abdomen: Soft, non-tender, non-distended Skin: right foot ulceration and BL foot charcot foot deformity, 1+ BL LE edema, Distal pulses present in BL LE. Neurologic: grossly non-focal. Medications: amLODIPine, 5 mg, Oral, Daily apixaban, 5 mg, Oral, BID atenolol, 50 mg, Oral, Daily atorvastatin, 40 mg, Oral, Daily fenofibrate, 160 mg, Oral, Daily gabapentin, 300 mg, Oral, BID insulin glargine, 26 Units, SubCUTAneous, Nightly insulin lispro, 0-12 Units, SubCUTAneous, TID WC insulin lispro, 16 Units, SubCUTAneous, TID WC levothyroxine, 112 mcg, Oral, qAM AC lisinopril, 20 mg, Oral, Daily trospium, 20 mg, Oral, BID AC Assessment Poorly controlled IDDM type 2 with hyperglycemia HgbA1c of 12.1 Insulin regimen per endocrinology Hyperkalemia Improved Acute on chronic Kidney disease Improving renal function to near baseline Charcot arthropathy bilateral feet and left ankle Diabetic polyneuropathy Right foot ulceration Podiatry following, recommended continued wound care and follow up outpatient. Pseudohyponatremia NAGMA 2/2 hyperglycemia Improved Afib on Eliquis HTN HLD Hypothyroidism Neuropathy Medical Decision Making 09/22/24: patient with poorly controlled DM type 2 with significant hyperglycemia and pseudohyponatremia, Hgb A1c of 12, endocrinology following, insulin regimen per endo recs. Metabolic derangements improving following improvement in blood glucose levels. Home medications reviewed and resumed. PT/OT eval and treat pending. Podiatry following for right foot ulceration. CBC and BMP in the AM. 09/23/24: plan was for patient to be discharged to home today with final DM medication regimen per endocrinology recs. Family concerned over patient not having enough instructions and family not readyfor her to go home. Initially family was concerned over patient being on insulin, discussed with end ocrinology, regimen adjusted so patient only on basal regimen. Family still not accepting of basal insulin. Further discussion with endocrinology, oral agents only regimen discussed. Discussed with patient's son Hi regarding discharge, he reports he is not prepared and educated enough regarding management to comfortably bring her home today, but he is not agreeable to basal insulin on discharge. Will monitor glucose today, plan for discharge to home tomorrow. -am labs, replace lytes prn -increase activity -resume home medications as indicated -DVT prophylaxis: [] Lovenox [] Heparin [] SCDs [x] Encourage ambulation [x] Already on Anticoagulation Anticipated Discharge - Date - 09/23/24 - Location - Home - Pending the following - final recs from endocrinology and podiatry Toxic drug monitoring/narrow therapeutic index drug monitoring : # Drug name : # Route administered : # Method of monitoring : Extended Emergency Contact Information Primary Emergency Contact: Hi Nelson Mobile Relation: Son Preferred language: Burmese Metal Bumper needed? No Herman Pepper DO Division of Hospitalist Medicine Inpatient Medical Services/[facility] PAGER: [email or web address] chat * Priscila Laguerre, 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 - NUCLEAR PLANT INSTRUMENT TECHNICIAN - 09/23/2024 2:33 PM EST Department of Internal Medicine Division of Endocrinology, Diabetes, & Metabolism Endocrinology Note Patient Name: Hanna Nelson : 1940 AGE: 84 y.o. [facility] Admission Date: 09/18/2024 Visit Date: 09/23/2024 Reason for Endocrine Consult: DM Ty2 uncontrolled hyperglycemia Provider/Team Requesting Consult: Dr. Montes PCP: No primary care provider on file. Outpt Tactical Air Control Party Manager: No ASSESSMENT: Uncontrolled Hyperglycemia Hyperkalemia PLAN: Increase Lantus 26 units Increase Humalog to 16 units TID with meals Continue Humalog medium dose sliding scale TID with meals Insulin pen ordered for insulin pen practice while inpatient. Discussed need for insulin for discharge - Patient agreeable Discussed insulin pen insulin administration, glucometer and CGM use. 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 Nursing communication order for insulin pen demonstration and patient return demonstration with patient giving insulin for practice before discharge. Levothyroxine 112 mcg daily ICU goal <180 GMF goal <150 POCT BG ACHS Hypoglycemia management per protocol Carb controlled diet ANTICIPATED ENDOCRINE HOME GOING RECOMMENDATIONS: Optimized for Discharge from Endocrine standpoint: Yes Home Going Endocrine Rx Recommendations-- Continue Glimepiride 4 mg BID with meals Start tresiba 26 units daily - $35 Continue Metformin 500 mg BID with meals Counseled patient on insulin pen and upon discussion before leaving the room, patient and family were comfortable with starting insulin once daily with family help. After leaving the floor, the patient and family decided they do not want patient on insulin. I do not feel this is in the best situation for the health and wellbeing for the patient but they are refusing insulin. Recommendations are listed above for oral medications. If kidney function declines, patient will need to start insulin. Without blood sugar control, the patient will be at risk for further kidney dysfunction. Patient will need Tradjenta, Glucometer, test strips, lancets, alcohol pads for discharge. [place] [facility] [place] SUBJECTIVE/HPI: CHIEF COMPLAINT: Chief Complaint Patient presents with Hyperglycemia Pt comes in today after being seen at [facility] yesterday for high sugar above 600 pt states she was able to get under 400 and was sent home yesterday but now pt states her sugar is high again and wont read on the monitor. Pt is alert and oriented but seems lethargic pts bgl is 535 Hanna is a 84 y.o. female with significant past medical history of ihb-awhsnka-gwdhjzltk diabetesmellitus, hypertension, hyperlipidemia, hypothyroidism, atrial fibrillation on Eliquis and neuropathy. Was brought to the emergency room due to uncontrolled blood sugars, patient was in the ER yesterdayand she was qualifying for DKA lytes protocol but patient refused admission and left the hospital. Today patient returned again due to uncontrolled blood sugars also noticed increased frequency of urination and extremely thirsty, no signs of confusion patient is alert and oriented x 3, denies any fever chills or rigors, denies any abdominal pain nausea or vomitings. Workup in the emergency room again showed blood sugars 548, hydroxybutyrate within normal limits, pH normal. 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 Patient has not set up primary care or had previous endocrinology team in the past. Reports she does not check blood sugars and with move, blood sugars probably got out of hand recently. Reports she has never given injections to herself. Agreeable to insulin for home going. Son has Javier and would like patient to have javier for monitoring blood sugars. Interval history: BGL reviewed and listed below Resting in bed VSS on RA Diet: Carb Insulin teaching complete, patient not able to perform insulin administration independently withoutreminders and instruction. Family at bedside and reviewed insulin instruction. Family agreeable to got to patient's house daily to help with injection until patient becomes comfortable with this or we can transition to 1x weekly GLP 1 injection or once daily GLP 1 pill. 09/22/2024 BGL reviewed and listed below Resting in bed VSS on RA Diet: Carb Tolerating diet Denies n/v Spoke to nursing - Return demonstration of insulin pen was difficult for patient. Reviewed insulin pen again at bedside and provided paper instructions with survival skills booklet. RN to continue insulin pen teaching. Type of DM: 2 Onset of DM: at age 49. Home DM Medication Regimen: Glimepiride 4 mg daily with breakfast Metformin 500 mg BID with meals DM control (last A1c/glucose data): Lab Results Component Value Date HGBA1C 12.2 (H) 09/20/2024 Glucose Date/Time Value Ref Range Status 09/23/2024 11:16 AM 294 (H) 70 - 100 mg/dL Final 09/23/2024 07:42 AM 241 (H) 70 - 100 mg/dL Final 09/22/2024 08:39 PM 211 (H) 70 - 100 mg/dL Final 09/22/2024 05:00 PM 281 (H) 70 - 100 mg/dL Final 09/22/2024 04:16 PM 320 (H) 70 - 100 mg/dL Final 09/22/2024 11:43 AM 310 (H) 70 - 100 mg/dL Final Review of Systems Constitutional: Negative for fatigue. Respiratory: Negative for shortness of breath. Cardiovascular: Negative for chest pain and palpitations. Gastrointestinal: Negative for abdominal pain, constipation, diarrhea, nausea and vomiting. Endocrine: Negative for polydipsia and polyuria. Neurological: Negative for weakness. Psychiatric/Behavioral: Negative for sleep disturbance. ROS negative except for those mentioned in HPI. OBJECTIVE: Vitals: 09/22/24 0847 09/22/24 1820 09/22/24 1929 09/23/24 0740 BP: 139/93 132/67 118/54 121/66 BP Location: Left arm Left arm Left arm Patient Position: Lying Lying Lying Pulse: 72 63 62 61 Resp: 17 17 18 18 Temp: 36.1 C (97 F) 36.3 C (97.4 F) (!) 35.5 C (95.9 F) (!) 35.7 C (96.3 F) TempSrc: Temporal Temporal Temporal Temporal SpO2: 97% 99% 97% 99% Height: Physical Exam Vitals and nursing note reviewed. HENT: Head: Normocephalic. Nose: Nose normal. Eyes: Conjunctiva/sclera: Conjunctivae normal. Pulmonary: Effort: Pulmonary effort is normal. No respiratory distress. Musculoskeletal: General: No swelling. Neurological: Mental Status: She is alert. Psychiatric: Mood and Affect: Mood normal. Behavior: Behavior normal. 24 hour intake/output:No intake or output data in the 24 hours ending 09/23/24 1434 Diet: Adult diet Regular; 5 carb choices (75 gm/meal) Medications (as per EMR): HomeMeds: Current Outpatient Medications Medication Instructions amLODIPine (Norvasc) 5 MG tablet Oral, Daily apixaban (ELIQUIS) 5 mg, Oral, 2 times daily atenolol (Tenormin) 50 MG tablet Oral, Daily atorvastatin (LIPITOR) 40 mg, Oral, Daily fenofibrate (TRIGLIDE) 160 mg, Oral, Daily gabapentin (NEURONTIN) 300 mg, Oral, 2 times daily glimepiride (AMARYL) 4 mg, Oral, Daily before breakfast glucose blood test strip Use as instructed levothyroxine (Tirosint) 112 MCG capsule Oral, Daily before breakfast lisinopril 20 MG tablet Oral, Daily metFORMIN (GLUCOPHAGE) 500 mg, Oral, 2 times daily with meals oxybutynin (Ditropan) 5 MG tablet Oral Scheduled Meds:amLODIPine, 5 mg, Oral, Daily apixaban, 5 mg, Oral, BID atenolol, 50 mg, Oral, Daily atorvastatin, 40 mg, Oral, Daily fenofibrate, 160 mg, Oral, Daily gabapentin, 300 mg, Oral, BID insulin glargine, 26 Units, SubCUTAneous, Nightly insulin lispro, 0-12 Units, SubCUTAneous, TID WC insulin lispro, 16 Units, SubCUTAneous, TID WC levothyroxine, 112 mcg, Oral, qAM AC lisinopril, 20 mg, Oral, Daily trospium, 20 mg, Oral, BID AC Continuous Infusions: PRN Meds:PRN medications: acetaminophen OR acetaminophen, dextrose, dextrose, glucagon (rDNA), glucose, melatonin, ondansetron ODT OR ondansetron, polyethylene glycol (PEG) 3350 Diagnostic Workup: I reviewed pertinent Laboratory results, Radiographic results, and Other Clinical Notes at the timeof today's encounter. Labs: No components found for: "LABA1C" No components found for: "EAG" Lab Results Component Value Date NA 139 09/23/2024 K 4.3 09/23/2024 CL 111 (H) 09/23/2024 CO2 19 (L) 09/23/2024 BUN 35 (H) 09/23/2024 CREATININE 1.08 09/23/2024 GLUCOSE 255 (H) 09/23/2024 CALCIUM 9.0 09/23/2024 No results found for: "CHLPL", "CHOL" No results found for: "TRIG" No results found for: "HDL" No results found for: "LDLCALC" No results found for: "VLDL" No results found for: "CHOLHDLRATIO" No results found for: "CYBX11WEN" Lab Results Component Value Date TSH 3.34 09/21/2024 Radiology reportsas per the Radiologist Radiology: POCT glucose meter Result Date: 09/19/2024 Performed by: [facility], [address] [place] [id number] CLIA ID: [id number] POCT glucose meter Result Date: 09/19/2024 Performed by: [facility], [address] [place] [id number] CLIA ID: [id number] POCT glucose meter Result Date: 09/19/2024 Performed by: [facility], [address] [place] [address] CLIA ID: [id number] POCT glucose meter Result Date: 09/19/2024 Performed by: [facility], [address] [place] [id number] CLIA ID: [id number] POCT glucose meter Result Date: 09/19/2024 [facility], [address] [place] [id number] CLIA ID: [id number] POCT glucose meter Result Date: 09/19/2024 [facility]formed [facility]: [facility], [address] [place] [id number] CLIA ID: [id number] POCT glucose meter Result Date: 09/18/2024 Performed by: [facility], [address] [place] [id number] CLIA ID: [id number] POCT glucose meter Result Date: 09/18/2024 Performed by: [facility], [address] [place] [address] CLIA ID: [id number] POCT glucose meter Result Date: 09/18/2024 Performed by: [facility], [address] [place] [id number] CLIA ID: [id number] POCT glucose meter Result Date: 09/18/2024 Performed by: [facility], [address] [place] [address] CLIA ID: [id number] POCT glucose meter Result Date: 09/18/2024 Performed by: [facility], [address] [place] [address] CLIA ID: [id number] POCT glucose meter Result Date: 09/18/2024 Performed by: [facility], [address] [place] [address] CLIA ID: [id number] History/Other: Past Medical History: Past Medical History: Diagnosis Date Atrial fibrillation (HCC) Diabetes mellitus (HCC) Hyperlipidemia Hypertension Hypothyroidism Neuropathy Past Surgical History: Past Surgical History: Procedure Laterality Date BACK SURGERY CHOLECYSTECTOMY Allergy(ies): No Known Allergies Family History: No family history on file. Social History: Social History Tobacco Use Smoking status: Former Current packs/day: 0.00 Types: Cigarettes Quit date: 1964 Years since quittin.1 Smokeless tobacco: Never Vaping Use Vaping status: Never Used Substance Use Topics Alcohol use: Not Currently Drug use: Never Portions of the information within this encounter were entered using an electronic dictation system. Best attempts were made to edit/proofread the information prior to note completion. Despite the review of information, some errors may remain. If there are questions related to the information contained within the note please contact the signing physician directly. I spent 35 minutes with the pt which involved coordination of care, medical evaluation, review of records, and/or counseling of the pt regarding his/her condition/disease state/prognosis on the date of this note. * ALEJANDRINA Latif CNP - 09/23/2024 12:03 PM EST [facility] Geriatric Medicine Inpatient Consult Service Admission Date: 09/18/2024 Assessment Principal Problem: Uncontrolled type 2 diabetes mellitus with hyperglycemia (HCC) Plan Cognitive deficits --09/21: MMSE 27/30 Clock 2 --+ history of cognitive decline at home. + history of decline in IADL's --TSH WNL , B12 332 --Head imaging - none available. --History concerning for baseline cognitive impairment. Suspect vascular component given risk factors. Uncontrolled DM can contribute to cognitive changes. --Recommend outpatient follow up at [facility] formore in depth cognitive evaluation when in usual state of health. Discussed with sons and added to discharge. --Family interested in increasing services at home including assistance with medications. Case Management assisting. Daughter local and plans to help as well. --Recommend avoiding anticholinergic medications. Takes Oxybutynin at home. Consider stopping. --09/23 - stable. Discussed sons concerns patient needs assistance with insulin. Having trouble remembering insulin instructions. Discussed with case management and social welfare research worker. Possible SNF placement if qualifies versus home with private duty and [facility]. Addendum - family/patient refusing insulin. Endocrinology made oral med recommendations. Debility --contributing factors include acute illness, neuropathy, likely arthritis --uses walker at baseline --Recommend PT and OT --Family interested in [facility] and increased services --09/23 stable. Continue with plan Vitamin D deficiency --Vit D 18 --Start high dose replacement (Ergocalciferol) 50,000 Qweek x 8 weeks; follow up with PCP for follow up levels and need for on-going supplementation. Neuropathy --Gabapentin 300mg BID --Unclear if taking correctly at home. Continue current dose at this time. At risk for delirium --Risk factors: advanced age, sensory impairments, acute illness, and baseline cognitive deficits --Encourage PO intake, time up in chair, family visits, supervised ambulation, and sleep hygiene --If agitated, assess for and consider treating for pain --QTc= no EKG available --No antipsychotic unless patient is danger to self/others/treatment --Continue PRN melatonin at HS --Monitor for constipation/urinary retention - last BM 09/22 --Possible medication contributions: none --09/23 stable. Continue with plan. Follow-up: prn, please page with any questions/issues Subjective Chief Complaint: forgetful Geriatrics consulted for ?Dementia HPI- The patient is known to me. 84 y.o. year-old female with PMH of DM, HTN, HLD, Hypothyroidism, atrial fibrillation, neuropathy, chronic food wound presented to [facility] on 09/18/24 with complaints of high blood sugar. She was just seenin ER 09/18 with hyperglycemia. PO meds adjusted and sent home. Patient had refused admission. Admitted this time with uncontrolled DM with hyperglycemia, hyperkalemia, ?UTI. Endocrinology consulted. Interval History: Remains on general medical/surgical floor . -Patient reports she feels well. Eating well. Denies pain. Sleeping well. -Son Hi at bedside concerned patient has been reluctant to agree to help in the home. She says she can manage on her own. He is concerned that she will not manage insulin correctly at home. -Nursing reports patient not retaining information regarding diabetic teaching. Review of Systems Constitutional: Negative for fatigue and fever. HENT: Negative for congestion. Respiratory: Negative for cough and shortness of breath. Cardiovascular: Negative for chest pain and leg swelling. Gastrointestinal: Negative for abdominal pain, constipation, diarrhea and nausea. Genitourinary: Negative for difficulty urinating. Musculoskeletal: Positive for gait problem. Negative for arthralgias. Neurological: Negative for dizziness and tremors. Psychiatric/Behavioral: Positive for confusion. Negative for dysphoric mood and sleep disturbance. The patient is not nervous/anxious. Objective BP 121/66 (BP Location: Left arm, Patient Position: Lying) Pulse 61 Temp (!) 35.7 C (96.3 F) (Temporal) Resp 18 Ht 5' 10" (1.778 m) SpO2 99% BMI 28.70 kg/m No intake or output data in the 24 hours ending 09/23/24 1204 Wt Readings from Last 3 Encounters: 09/17/24 200 lb (90.7 kg) Current Facility-Administered Medications: acetaminophen (Tylenol) tablet 650 mg, 650 mg, Oral, q6h PRN OR acetaminophen (Tylenol) suppository 650 mg, 650 mg, Rectal, q6h PRN, Fish Montes MD amLODIPine (Norvasc) tablet 5 mg, 5 mg, Oral, Daily, Fish Montes MD, 5 mg at 09/23/24917 apixaban (Eliquis) tablet 5 mg, 5 mg, Oral, BID, Fish Montes MD, 5 mg at 09/23/2418 atenolol (Tenormin) tablet 50 mg, 50 mg, Oral, Daily, Fish Montes MD, 50 mg at 09/23/2418 atorvastatin (Lipitor) tablet 40 mg, 40 mg, Oral, Daily, Fish Montes MD, 40 mg at 09/23/24 0919 dextrose 5 % infusion, 100 mL/hr, IntraVENous, PRN, Fish Montes MD dextrose 50 % solution 12.5 g, 12.5 g, IntraVENous, PRN, Fish Montes MD fenofibrate (Triglide) tablet 160 mg, 160 mg, Oral, Daily, Fish Montes MD, 160 mg at 09/23/2418 gabapentin (Neurontin) capsule 300 mg, 300 mg, Oral, BID, Fish Montes MD, 300 mg at 09/23/2418 glucagon (human recombinant) injection 1 mg, 1 mg, IntraMUSCular, PRN, Fish Montes MD glucose oral gel 15 g, 15 g, Oral, PRN, Fish Montes MD insulin glargine (Lantus) injection 26 Units, 26 Units, SubCUTAneous, Nightly, ALEJANDRINA Urias CNP, 26 Units at 09/22/240 insulin lispro (HumaLOG) pen injection 0-12 Units, 0-12 Units, SubCUTAneous, TID , ALEJANDRINA Urias CNP, 4 Units at 09/23/24 0919 insulin lispro (HumaLOG) pen injection 16 Units, 16 Units, SubCUTAneous, TID , ALEJANDRINA Urias CNP, 16 Units at 09/23/24 0919 levothyroxine (Synthroid, Levoxyl) tablet 112 mcg, 112 mcg, Oral, qAM , Fish Montes MD, 112 mcg at 09/23/24 0534 lisinopril tablet 20 mg, 20 mg, Oral, Daily, Fish Montes MD, 20 mg at 09/23/24 0900 melatonin tablet 3 mg, 3 mg, Oral, Nightly PRN, ALEJANDRINA Latif CNP ondansetron ODT (Zofran-ODT) disintegrating tablet 4 mg, 4 mg, Oral, q8h PRN OR ondansetron (Zofran) injection 4 mg, 4 mg, IntraVENous, q6h PRN, Fish Montes MD polyethylene glycol (PEG) 3350 (Miralax) packet 17 g, 17 g, Oral, Daily PRN, Fish Montes MD trospium (Sanctura) tablet 20 mg, 20 mg, Oral, BID AC, Fish Montes MD, 20 mg at 09/23/24 0535 Physical Exam Vitals reviewed. HENT: Head: Normocephalic and atraumatic. Eyes: Extraocular Movements: Extraocular movements intact. Cardiovascular: Rate and Rhythm: Normal rate and regular rhythm. Pulmonary: Effort: Pulmonary effort is normal. No respiratory distress. Breath sounds: Normal breath sounds. Abdominal: General: Bowel sounds are normal. There is no distension. Palpations: Abdomen is soft. Tenderness: There is no abdominal tenderness. Musculoskeletal: Right lower leg: No edema. Left lower leg: No edema. Skin: Comments: Foot wrapped Neurological: Mental Status: She is alert. Psychiatric: Mood and Affect: Mood normal. Cognition and Memory: Cognition is impaired. Memory is impaired. Labs and Imaging: Recent Results (from the past 24 hours) POCT glucose meter Collection Time: 09/22/24 4:16 PM Result Value Ref Range Glucose 320 (H) 70 - 100 mg/dL POCT glucose meter Collection Time: 09/22/24 5:00 PM Result Value Ref Range Glucose 281 (H) 70 - 100 mg/dL POCT glucose meter Collection Time: 09/22/24 8:39 PM Result Value Ref Range Glucose 211 (H) 70 - 100 mg/dL CBC auto differential Collection Time: 09/23/24 2:45 AM Result Value Ref Range Auto WBC 6.7 3.6 - 10.7 10*3/uL RBC 3.88 3.80 - 5.20 10*6/uL Hemoglobin 11.7 11.7 - 16.0 g/dL Hematocrit 37.3 35.0 - 47.0 % MCV 96.1 77.0 - 99.0 fL MCH 30.2 26.0 - 34.0 pg MCHC 31.4 30.5 - 36.0 % RDW 13.6 11.5 - 15.0 % Platelets 229 140 - 440 10*3/uL MPV 11.2 9.0 - 12.7 fL nRBC 0.0 0.0 - 2.0 /100 WBCs Neutrophils Relative 54.0 38.0 - 82.0 % Lymphocytes Relative 30.5 15.0 - 45.0 % Monocytes Relative 10.5 5.0 - 13.0 % Eosinophils Relative 4.2 0.0 - 6.0 % Basophils Relative 0.5 0.0 - 2.0 % Immature Grans % 0.3 0.0 - 2.0 % Neutrophils Absolute 3.6 1.8 - 7.5 10*3/uL Lymphocytes Absolute 2.0 1.0 - 4.3 10*3/uL Monocytes Absolute 0.7 0.0 - 0.9 10*3/uL Eosinophils Absolute 0.3 0.0 - 0.5 10*3/uL Basophils Absolute 0.0 0.0 - 0.2 10*3/uL Immature Grans Absolute 0.0 <0.1 10*3/uL Basic metabolic panel Collection Time: 09/23/24 2:45 AM Result Value Ref Range SODIUM 139 136 - 145 mmol/L POTASSIUM 4.3 3.5 - 5.1 mmol/L CHLORIDE 111 (H) 98 - 107 mmol/L CARBON DIOXIDE 19 (L) 23 - 31 mmol/L UREA NITROGEN 35 (H) 9 - 23 mg/dL CREATININE 1.08 0.57 - 1.11 mg/dL GLUCOSE 255 (H) 82 - 115 mg/dL CALCIUM 9.0 8.8 - 10.0 mg/dL ANION GAP 9 3 - 13 mmol/L eGFR 50.4 (L) >60.0 mL/min/1.73m*2 POCT glucose meter Collection Time: 09/23/24 7:42 AM Result Value Ref Range Glucose 241 (H) 70 - 100 mg/dL POCT glucose meter Collection Time: 09/23/24 11:16 AM Result Value Ref Range Glucose 294 (H) 70 - 100 mg/dL Lab Results Component Value Date TSH 3.34 09/21/2024 Lab Results Component Value Date [id number] 332 09/21/2024 Lab Results Component Value Date VITD25 18 (L) 09/22/2024 Reviewed: allergies, previous encounters, active problem lists, medications, and labs * Nallely Alas DPM - 09/23/2024 9:11 AM EST Follow-up bilateral foot ulcerations with Charcot joint no new complaints. Patient seen at bedside. She is pleasant, cooperative, O x 3. NAD. Deep ulceration plantar medial midfoot with hyperkeratotic halo. No erythema. No active drainage. Ulceration left second toe obscured with eschar. No sign of secondary soft tissue infection. 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 Reviewed findings and treatment option with the patient. Debridement ordered of hyperkeratotic halo right foot per Lauren Castanon CNP. Will follow outpatient [place] [facility] * Herman Masonlily, DO - 09/22/2024 2:39 PM EST Hospitalist Progress Note 09/22/2024 [phone]: Please page me ([phone]) for patient care issues. [phone]: Please page [facility] night Hospitalist for any issues. Subjective: Admit Date: 09/18/2024 PCP: No primary care provider on file. Room#: B4-458/B4-458 B Interval History: patient admitted for poorly controlled DM Type 2 with hyperglycemia. No overnightissues. Denies chest pain, sob, abdominal pain, nausea, vomiting, diarrhea, constipation, fevers, or chills. Adult diet Regular; 5 carb choices (75 gm/meal) 24HR INTAKE/OUTPUT: No intake or output data in the 24 hours ending 09/22/24 1440 Past Medical History: Past Medical History: Diagnosis Date Atrial fibrillation (HCC) Diabetes mellitus (HCC) Hyperlipidemia Hypertension Hypothyroidism Neuropathy LABS: CBC: Recent Labs 09/20/24 0348 09/21/24 0058 09/22/24 0532 WBC 8.4 7.8 7.0 RBC 4.25 3.80 3.97 HGB 13.1 11.7 12.2 HCT 40.6 36.5 38.1 MCV 95.5 96.1 96.0 RDW 13.4 13.3 13.7 PLT 254 222 225 BMP: Recent Labs 09/20/24 0348 09/21/24 0058 09/22/24 0532 NA 139 136 139 K 4.3 4.3 4.3 CL 110* 108* 108* CO2 21* 19* 21* BUN 22 29* 29* CREATININE 1.03 1.04 1.04 GLUCOSE 216* 265* 224* CALCIUM 9.7 8.6* 8.9 ANIONGAP 8 9 10 LIVER PROFILE:No results for input(s): "AST", "ALT", "BILITOT", "ALKPHOS", "PROT" in the last 72 hours. No lab exists for component: "LABALBU" PT/INR: No results for input(s): "PROTIME", "INR" in the last 72 hours. CARDIAC ENZYMES: No results for input(s): "TROPONINI" in the last 72 hours. Procalcitonin: No results found for: "PROCAL" COVID-19 PCR: No results for input(s): "COVID19" in the last 72 hours. Objective: Vitals: BP 139/93 (BP Location: Left arm, Patient Position: Lying) Pulse 72 Temp 36.1 C (97 F) (Temporal) Resp 17 Ht 5' 10" (1.778 m) SpO2 97% BMI 28.70 kg/m Pulse Ox: SpO2 Av.5 % Min: 97 % Max: 98 % Supplemental O2: General appearance: No apparent distress, appears stated age and cooperative with exam, female in NAD Respiratory: Normal respiratory effort. CTA BL, no wheezing Cardiovascular: Regular rate and rhythm with no murmur Abdomen: Soft, non-tender, non-distended Skin: right foot ulceration and BL foot charcot foot deformity, 1+ BL LE edema, Distal pulses present in BL LE. Neurologic: grossly non-focal. Medications: amLODIPine, 5 mg, Oral, Daily apixaban, 5 mg, Oral, BID atenolol, 50 mg, Oral, Daily atorvastatin, 40 mg, Oral, Daily fenofibrate, 160 mg, Oral, Daily gabapentin, 300 mg, Oral, BID insulin glargine, 26 Units, SubCUTAneous, Nightly insulin lispro, 0-12 Units, SubCUTAneous, TID WC insulin lispro, 16 Units, SubCUTAneous, TID WC levothyroxine, 112 mcg, Oral, qAM AC lisinopril, 20 mg, Oral, Daily trospium, 20 mg, Oral, BID AC Assessment Poorly controlled IDDM type 2 with hyperglycemia HgbA1c of 12.1 Insulin regimen per endocrinology Hyperkalemia Improved Acute on chronic Kidney disease Improving renal function to near baseline Charcot arthropathy bilateral feet and left ankle Diabetic polyneuropathy Right foot ulceration Podiatry following, recommended continued wound care and follow up outpatient. Pseudohyponatremia NAGMA 2/2 hyperglycemia Improved Afib on Eliquis HTN HLD Hypothyroidism Neuropathy Medical Decision Making 09/22/24: patient with poorly controlled DM type 2 with significant hyperglycemia and pseudohyponatremia, Hgb A1c of 12, endocrinology following, insulin regimen per endo recs. Metabolic derangements improving following improvement in blood glucose levels. Home medications reviewed and resumed. PT/OT eval and treat pending. Podiatry following for right foot ulceration. CBC and BMP in the AM. -am labs, replace lytes prn -increase activity -resume home medications as indicated -DVT prophylaxis: [] Lovenox [] Heparin [] SCDs [x] Encourage ambulation [x] Already on Anticoagulation Anticipated Discharge - Date - 09/23/24 - Location - Home - Pending the following - final recs from endocrinology and podiatry Toxic drug monitoring/narrow therapeutic index drug monitoring : # Drug name : # Route administered : # Method of monitoring : Extended Emergency Contact Information Primary Emergency Contact: Hi Nelson Mobile Relation: Son Preferred language: Burmese Metal Bumper needed? No Herman Pepper DO [facility] PAGER: [email or web address] chat * Mariaa Simon, PT - 09/22/2024 12:06 PM EST Images from the original note were not included. PHYSICAL THERAPY [facility] Initial Evaluation Name/MRN: Hanna Nelson ([id number]) Evaluation Date: 09/22/2024 Date of : 1940 Admission Date: 09/18/2024 3:39 PM Age: 84 y.o. [facility]: [facility] Discharge Recommendation: Home with Home health PT, Home with assist PRN Equipment Needed: No Assessment IMPRESSION: Pt is an 84 y.o. female admitted 09/18 with uncontrolled blood sugars. Pt was previously independent with FWW PRN. Pt is currently SBA for bed mobility, functional transfers and ambulation with FWW. Pt is currently limited by endurance, fatigue, balance deficits and will benefit from acute skilled PT to address current deficits. Recommend home with [facility] PT and PRN assist. Admitting Diagnosis: admitted 09/18 with uncontrolled blood sugars Prognosis: good Performance Deficits /Impairments: Decreased Functional Mobility, Decreased Strength, Decreased Endurance, and Decreased Balance Decision Making: Medium Complexity Subjective Pt pleasant and agreeable to therapy session Per RN okay for therapy Pain: Pt denies any current pain. Past Medical History: Past Medical History: Diagnosis Date Atrial fibrillation (HCC) Diabetes mellitus (HCC) Hyperlipidemia Hypertension Hypothyroidism Neuropathy Past Surgical History: Past Surgical History: Procedure Laterality Date BACK SURGERY CHOLECYSTECTOMY Admission Diagnosis: Patient Active Problem List Diagnosis Date Noted Uncontrolled type 2 diabetes mellitus with hyperglycemia (HCC) 09/18/2024 Medical Precautions: No active isolations Proper PPE donned/doffed in accordance with facility standards. Fall Risk: Proctor Fall Risk Score: 60 (High Risk) Precautions/Restrictions: N/A Family/Caregiver Present: none Overall Cognitive Status: WFL Overall Orientation Status: Oriented x4 Vision: wears glasses for reading and and are NOT being used during the eval Hearing: normal Social/Functional History Patient admitted from home. Lives With: Alone Type of Home: condo Home Layout: Single Level Home Home Access: Ramped Entrance Bathroom Shower/Tub: Washes at sink/bed Toilet: Standard Home Equipment: front wheeled walker Homemaking Responsibilities: Independent Receives Help From: None Active Bindery Manager: N/A Prior Level of Function Prior Level of ADL Function: Independent Prior Level of Mobility: Independent; Device: Front wheeled walker and PRN Prior Level of Transfers: Independent Objective Lower Extremity Assessment AROM: WFL Strength: Exceptions: mildly decreased in BLE noted with functional mobility Balance: Balance During Session: Posture: good Standing - Static: SBA Standing - Dynamic: SBA Bed Mobility: Supine to sit: SBA Sit to supine: SBA Pt completes bed mobility at SBA with HOB elevated. Slightly increased time required to complete. Transfers Sit to stand: SBA Stand to sit: SBA X1 from EOB to FWW requiring SBA with cues provided for hand placement. Ambulation Ambulation 1 Assistive device(s) used: Front wheeled walker Assist level: SBA Distance (ft): ~150 feet x1 Quality of gait: reciprocal stepping, slow shannan Pt demos short, reciprocal gait pattern, decreased gait speed. SBA provided to monitor safety and stability. Recommended pt use FWW initially upon discharge as pt unwilling to trial no device with PTdue to feeling unstable. Pt verbalizes understanding. Outcome Measures AM-PAC How much HELP from another person do you currently need Turning from your back to your side while in a flat bed without using bedrails?: A Little Moving from lying on your back to sitting on the side of a flat bed without using bedrails?: A Little Moving to and from a bed to a chair (including a wheelchair)?: A Little Standing up from a chair using your arms (wheelchair or bedside chair)?: A Little Walking in a hospital room?: A Little Stair climbing assessed?: No AM-PAC Inpatient Mobility Raw Score (No Stairs) : 15 Plan Pt would benefit from skilled acute PT services to address Strengthening, Gait Training, Balance Training, Functional Mobility Training, Endurance Training, Safety Education and Training, Pain Management, Equipment Evaluation/Education, Patient/Caregiver Training, and Positioning. Frequency: 5 visits during current hospital admission or until additional recommendations are made Barriers: Impaired balance, Lower extremity weakness, and Decreased endurance Safety/Education Safety Safety Devices in place: All fall risk precautions in place, call light within reach, left in bed, gait belt, patient at risk for falls, nurse notified, and no alarms engaged upon entry Restraints: N/A Education Education Given To: patient Education Provided: PT Role, PT Goals, Gait Training, Plan of Care, Transfer Training, Equipment, Discharge Recommendations, and Benefits of Increasing Activity Education Method: Verbal and Demonstration Barriers to Learning: None Education Outcome: Verbalized Understanding, Demonstrated Understanding, and Continued Education Needed Goals Patient Stated Goal: Pt did not state Encounter Problems Encounter Problems (Active) Exercise Patient will complete lower extremity exercises for 1-2 sets / 5-10 reps in order to improve strength and activity tolerance for mobility. Start: 09/22/24 Expected End: 09/29/24 Mobility Patient will ambulate 100 feet with modified independence and least restrictive device in order to improve safety and independence with mobility. Start: 09/22/24 Expected End: 09/29/24 Transfers Patient will perform bed mobility with modified independence in order to improve independence and prepare for out of bed mobility. Start: 09/22/24 Expected End: 09/29/24 Patient will complete functional transfer with least restrictive device with modified independence in order to prepare for ambulation. Start: 09/22/24 Expected End: 09/29/24 Therapy Time Individual Co-Treatment Co-Evaluation Time In 1050 Time Out 1103 Minutes 13 Mariaa Simon PT Patient's Physical Therapy Plan of Care supervision is transferred to a [facility] Services Physical Therapist. Goals and/or treatment plan was established in collaboration with patient/family/other representatives. * Priscila Laguerre APRN - NUCLEAR PLANT INSTRUMENT TECHNICIAN - 09/22/2024 7:59 AM EST Department of Internal Medicine Division of Endocrinology, Diabetes, & Metabolism Endocrinology Note Patient Name: Hanna Nelson : 1940 AGE: 84 y.o. Room/Bed: [facility]/[address] Admission Date: 09/18/2024 Visit Date: 09/22/2024 Reason for Endocrine Consult: DM Ty2 uncontrolled hyperglycemia Provider/Team Requesting Consult: Dr. Montes PCP: No primary care provider on file. Outpt Tactical Air Control Party Manager: No ASSESSMENT: Uncontrolled Hyperglycemia Hyperkalemia PLAN: Increase Lantus 26 units Increase Humalog to 16 units TID with meals Continue Humalog medium dose sliding scale TID with meals Insulin pen ordered for insulin pen practice while inpatient. Discussed need for insulin for discharge - Patient agreeable Discussed insulin pen insulin administration, glucometer and CGM use. 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 Nursing communication order for insulin pen demonstration and patient return demonstration with patient giving insulin for practice before discharge. Levothyroxine 112 mcg daily ICU goal <180 GMF goal <150 POCT BG ACHS Hypoglycemia management per protocol Carb controlled diet ANTICIPATED ENDOCRINE HOME GOING RECOMMENDATIONS: Optimized for Discharge from Endocrine standpoint: No Home Going Endocrine Rx Recommendations-- Metformin 500 mg BID with meals Stop Glimepiride Start Tradjenta 5 mg daily Start Lantus - Current dose on day of discharge. Patient will need Tradjenta, Lantus Pen, Insulin pen needles, Glucometer, test strips, lancets, alcohol pads for discharge. [place] [facility] [place] SUBJECTIVE/HPI: CHIEF COMPLAINT: Chief Complaint Patient presents with Hyperglycemia Pt comes in today after being seen at [place] yesterday for high sugar above 600 pt states she was able to get under 400 and was sent home yesterday but now pt states her sugar is high again and wont read on the monitor. Pt is alert and oriented but seems lethargic pts bgl is 535 Hanna is a 84 y.o. female with significant past medical history of [id number] diabetesmellitus, hypertension, hyperlipidemia, hypothyroidism, atrial fibrillation on Eliquis and neuropathy. Was brought to the emergency room due to uncontrolled blood sugars, patient was in the ER yesterdayand she was qualifying for DKA lytes protocol but patient refused admission and left the hospital. Today patient returned again due to uncontrolled blood sugars also noticed increased frequency of urination and extremely thirsty, no signs of confusion patient is alert and oriented x 3, denies any fever chills or rigors, denies any abdominal pain nausea or vomitings. Workup in the emergency room again showed blood sugars 548, hydroxybutyrate within normal limits, pH normal. 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 Patient has not set up primary care or had previous endocrinology team in the past. Reports she does not check blood sugars and with move, blood sugars probably got out of hand recently. Reports she has never given injections to herself. Agreeable to insulin for home going. Son has Javier and would like patient to have javier for monitoring blood sugars. [employer] smart phone at bedside. - Will plan to start patient on CGM before discharge. 09/22/2024 BGL reviewed and listed below Resting in bed VSS on RA Diet: Carb Tolerating diet Denies n/v Spoke to nursing - Return demonstration of insulin pen was difficult for patient. Reviewed insulin pen again at bedside and provided paper instructions with survival skills booklet. RN to continue insulin pen teaching. Type of DM: 2 Onset of DM: at age 49. Home DM Medication Regimen: Glimepiride 4 mg daily with breakfast Metformin 500 mg BID with meals DM control (last A1c/glucose data): Lab Results Component Value Date HGBA1C 12.2 (H) 09/20/2024 Glucose Date/Time Value Ref Range Status 09/21/2024 08:30 PM 200 (H) 70 - 100 mg/dL Final 09/21/2024 04:29 PM 255 (H) 70 - 100 mg/dL Final 09/21/2024 11:19 AM 261 (H) 70 - 100 mg/dL Final 09/21/2024 07:23 AM 265 (H) 70 - 100 mg/dL Final 09/20/2024 08:43 PM 155 (H) 70 - 100 mg/dL Final 09/20/2024 05:14 PM 168 (H) 70 - 100 mg/dL Final Review of Systems Constitutional: Negative for fatigue. Respiratory: Negative for shortness of breath. Cardiovascular: Negative for chest pain and palpitations. Gastrointestinal: Negative for abdominal pain, constipation, diarrhea, nausea and vomiting. Endocrine: Negative for polydipsia and polyuria. Neurological: Negative for weakness. Psychiatric/Behavioral: Negative for sleep disturbance. ROS negative except for those mentioned in HPI. OBJECTIVE: Vitals: 09/20/24 0909 09/20/24204109/21/24 0723 09/21/242022 BP: 158/77 110/68 124/83 106/64 BP Location: Left arm Left arm Left arm Patient Position: Lying Sitting Sitting Pulse: 57 73 87 88 Resp: 18 20 17 Temp: 36.4 C (97.5 F) 36.2 C (97.2 F) TempSrc: Temporal Temporal SpO2: 100% 100% 100% 98% Height: Physical Exam Vitals and nursing note reviewed. HENT: Head: Normocephalic. Nose: Nose normal. Eyes: Conjunctiva/sclera: Conjunctivae normal. Pulmonary: Effort: Pulmonary effort is normal. No respiratory distress. Musculoskeletal: General: No swelling. Neurological: Mental Status: She is alert. Psychiatric: Mood and Affect: Mood normal. Behavior: Behavior normal. 24 hour intake/output:No intake or output data in the 24 hours ending 09/22/24 0759 Diet: Adult diet Regular; 5 carb choices (75 gm/meal) Medications (as per EMR): HomeMeds: Current Outpatient Medications Medication Instructions amLODIPine (Norvasc) 5 MG tablet Oral, Daily apixaban (ELIQUIS) 5 mg, Oral, 2 times daily atenolol (Tenormin) 50 MG tablet Oral, Daily atorvastatin (LIPITOR) 40 mg, Oral, Daily fenofibrate (TRIGLIDE) 160 mg, Oral, Daily gabapentin (NEURONTIN) 300 mg, Oral, 2 times daily glimepiride (AMARYL) 4 mg, Oral, Daily before breakfast glucose blood test strip Use as instructed levothyroxine (Tirosint) 112 MCG capsule Oral, Daily before breakfast lisinopril 20 MG tablet Oral, Daily metFORMIN (GLUCOPHAGE) 500 mg, Oral, 2 times daily with meals oxybutynin (Ditropan) 5 MG tablet Oral Scheduled Meds:amLODIPine, 5 mg, Oral, Daily apixaban, 5 mg, Oral, BID atenolol, 50 mg, Oral, Daily atorvastatin, 40 mg, Oral, Daily fenofibrate, 160 mg, Oral, Daily gabapentin, 300 mg, Oral, BID insulin glargine, 24 Units, SubCUTAneous, Nightly insulin lispro, 0-12 Units, SubCUTAneous, TID WC insulin lispro, 10 Units, SubCUTAneous, TID WC levothyroxine, 112 mcg, Oral, qAM AC lisinopril, 20 mg, Oral, Daily trospium, 20 mg, Oral, BID AC Continuous Infusions: PRN Meds:PRN medications: acetaminophen OR acetaminophen, dextrose, dextrose, glucagon (rDNA), glucose, melatonin, ondansetron ODT OR ondansetron, polyethylene glycol (PEG) 3350 Diagnostic Workup: I reviewed pertinent Laboratory results, Radiographic results, and Other Clinical Notes at the timeof today's encounter. Labs: No components found for: "LABA1C" No components found for: "EAG" Lab Results Component Value Date NA 139 09/22/2024 K 4.3 09/22/2024 CL 108 (H) 09/22/2024 CO2 21 (L) 09/22/2024 BUN 29 (H) 09/22/2024 CREATININE 1.04 09/22/2024 GLUCOSE 224 (H) 09/22/2024 CALCIUM 8.9 09/22/2024 No results found for: "CHLPL", "CHOL" No results found for: "TRIG" No results found for: "HDL" No results found for: "LDLCALC" No results found for: "VLDL" No results found for: "CHOLHDLRATIO" No results found for: "NQFX22WKX" Lab Results Component Value Date TSH 3.34 09/21/2024 Radiology reportsas per the Radiologist Radiology: POCT glucose meter Result Date: 09/19/2024 Performed by: Rodrigo Estrella, [address] [place] [address] CLIA ID: [id number] POCT glucose meter Result Date: 09/19/2024 Performed by: Rodrigo Estrella, [address] [place] [address] CLIA ID: [id number] POCT glucose meter Result Date: 09/19/2024 Performed by: Rodrigo Estrella, [address] [place], [place] [address] [place] [address] CLIA ID: [id number] POCT glucose meter Result Date: 09/19/2024 [facility], [address] [place], [place] [address] [place] [address] CLIA ID: [id number] POCT glucose meter Result Date: 09/19/2024 [facility]: [facility], [address] [place], [place] [address] [place] [address] CLIA ID: [id number] POCT glucose meter Result Date: 09/19/2024 [facility]: [facility], [address] [place], [place] [address] [place] [address] CLIA ID: [id number] POCT glucose meter Result Date: 09/18/2024 [facility], [address] [place], [place] [address] [place] [address] CLIA ID: [id number] POCT glucose meter Result Date: 09/18/2024 [facility]: [facility], [address] [place], [place] [address] [place] [address] CLIA ID: [id number] POCT glucose meter Result Date: 09/18/2024 [facility]: [facility], [address] [place], [place] [address] [place] [address] CLIA ID: [id number] POCT glucose meter Result Date: 09/18/2024 [facility]: [facility], [address] [place], [place] [address] [place] [address] CLIA ID: [id number] POCT glucose meter Result Date: 09/18/2024 [facility]: [facility], [address] [place], [place] [address] [place] [address] CLIA ID: [id number] POCT glucose meter Result Date: 09/18/2024 Performed by: [facility], [address] [place], [place] [address] [place] [address] CLIA ID: [id number] History/Other: Past Medical History: Past Medical History: Diagnosis Date Atrial fibrillation (HCC) Diabetes mellitus (HCC) Hyperlipidemia Hypertension Hypothyroidism Neuropathy Past Surgical History: Past Surgical History: Procedure Laterality Date BACK SURGERY CHOLECYSTECTOMY Allergy(ies): No Known Allergies Family History: No family history on file. Social History: Social History Tobacco Use Smoking status: Former Current packs/day: 0.00 Types: Cigarettes Quit date: 1964 Years since quittin.1 Smokeless tobacco: Never Vaping Use Vaping status: Never Used Substance Use Topics Alcohol use: Not Currently Drug use: Never Portions of the information within this encounter were entered using an electronic dictation system. Best attempts were made to edit/proofread the information prior to note completion. Despite the review of information, some errors may remain. If there are questions related to the information contained within the note please contact the signing physician directly. I spent 35 minutes with the pt which involved coordination of care, medical evaluation, review of records, and/or counseling of the pt regarding his/her condition/disease state/prognosis on the date of this note. * Fish Montes MD - 09/21/2024 4:13 PM EST Hospitalist Progress Note 09/21/2024 [phone]: Please page me ([phone]) for patient care issues. [phone]: Please page [facility] night Hospitalist for any issues. Subjective: Admit Date: 09/18/2024 PCP: No primary care provider on file. Room#: B4-905/M2-785 B Interval History: Denies any abdominal pain nausea or vomitings No other significant overnight issues Adult diet Regular; 5 carb choices (75 gm/meal) @[id number]@ 24HR INTAKE/OUTPUT: No intake or output data in the 24 hours ending 09/21/24 1613 Past Medical History: Past Medical History: Diagnosis Date Atrial fibrillation (HCC) Diabetes mellitus (HCC) Hyperlipidemia Hypertension Hypothyroidism Neuropathy LABS: CBC: Recent Labs 09/19/24 1116 09/20/24 0348 09/21/24 0058 WBC 7.3 8.4 7.8 RBC 3.92 4.25 3.80 HGB 12.2 13.1 11.7 HCT 37.0 40.6 36.5 MCV 94.4 95.5 96.1 RDW 13.5 13.4 13.3 PLT 253 254 222 BMP: Recent Labs 09/19/24 1116 09/20/24 0348 09/21/24 0058 NA 137 139 136 K 4.0 4.3 4.3 CL 106 110* 108* CO2 21* 21* 19* BUN 24* 22 29* CREATININE 1.10 1.03 1.04 GLUCOSE 286* 216* 265* CALCIUM 9.4 9.7 8.6* ANIONGAP 10 8 9 LIVER PROFILE: No results for input(s): "AST", "ALT", "BILITOT", "ALKPHOS", "PROT" in the last 72 hours. No lab exists for component: "LABALBU" PT/INR: No results for input(s): "PROTIME", "INR" in the last 72 hours. CARDIAC ENZYMES: No results for input(s): "TROPONINI" in the last 72 hours. Procalcitonin: No results found for: "PROCAL" COVID-19 PCR: No results for input(s): "COVID19" in the last 72 hours. Objective: Vitals: BP 124/83 (BP Location: Left arm, Patient Position: Sitting) Pulse 87 Temp 36.4 C (97.5F) (Temporal) Resp 20 Ht 5' 10" (1.778 m) SpO2 100% BMI 28.70 kg/m Pulse Ox: SpO2 Av % Min: 100 % Max: 100 % Supplemental O2: General appearance: No apparent distress, appears stated age and cooperative with exam HEENT: Normal cephalic, atraumatic without obvious deformity. Pupils equal, round, and reactive to light. Extra ocular muscles intact. Conjunctivae/corneas clear. Neck: Supple, with full range of motion. No jugular venous distention. Trachea midline. No lymphadenopathy. Respiratory: Normal respiratory effort. Clear to auscultation, bilaterally without Rales/Wheezes/Rhonchi. Cardiovascular: Regular rate and rhythm with normal S1/S2 without murmurs, rubs or gallops. Abdomen: Soft, non-tender, non-distended with normal bowel sounds. No rebound or guarding. Musculoskeletal: No clubbing, cyanosis or edema bilaterally. Full range of motion without deformity, +2 peripheral pulses in all extremities. Skin: Skin color, texture, turgor normal. No rashes or lesions. Neurologic: Neurovascularly intact without any focal sensory/motor deficits. Cranial nerves: II-XIIintact, grossly non-focal. Medications: amLODIPine, 5 mg, Oral, Daily apixaban, 5 mg, Oral, BID atenolol, 50 mg, Oral, Daily atorvastatin, 40 mg, Oral, Daily fenofibrate, 160 mg, Oral, Daily gabapentin, 300 mg, Oral, BID insulin glargine, 24 Units, SubCUTAneous, Nightly insulin lispro, 0-12 Units, SubCUTAneous, TID WC insulin lispro, 10 Units, SubCUTAneous, TID WC levothyroxine, 112 mcg, Oral, qAM AC lisinopril, 20 mg, Oral, Daily trospium, 20 mg, Oral, BID AC Assessment Uncontrolled ynh-tkrhjxh-xdsdmcakh diabetes mellitus with hyperglycemia. Hyperkalemia. Acute on chronic kidney disease. Non-anion gap metabolic acidosis Mild pseudohyponatremia secondary to hyperglycemia. Elevated blood pressure. History of: Renal fibrillation on Eliquis. Hypertension Hyperlipidemia. Hwl-oggeppo-vdqjhppfw diabetes mellitus Hypothyroidism. Neuropathy. Plan: Lantus to 20 units nightly, lispro 8 units 3 times daily continue medium dose sliding scale. Blood sugars are improving. Hemoglobin A1c is 12.1 Endocrinology consult pending. Discussed with ID stewardship-discontinued antibiotics Geriatrics jxvykrqly-glduuz-ee on the recommendations Follow-up CBC BMP ordered. Other home medications reviewed and resumed appropriately. PT OT evaluation DVT prophylaxis: On Eliquis. Disposition: Pending Endo consult. Adjusting insulin. Possible discharge home tomorrow -am labs, replace lytes prn -increase activity -DVT prophylaxis: [] Lovenox [] Heparin [] SCDs [x] Encourage ambulation [] Already on Anticoagulation Advance Directive: Full Code Discharge planning: TBD Fish Montes MD Division of Hospitalist Medicine Inpatient Medical Services/[facility] PAGER: [phone] * Fish Montes MD - 09/20/2024 4:08 PM EST Hospitalist Progress Note 09/20/2024 [phone]: Please page me ([phone]) for patient care issues. [phone]: Please page [facility] night Hospitalist for any issues. Subjective: Admit Date: 09/18/2024 PCP: No primary care provider on file. Room#: B4-458/B4-353 B Interval History: Denies any abdominal pain nausea or vomitings No other significant overnight issues Adult diet Regular; 5 carb choices (75 gm/meal) @[id number]@ 24HR INTAKE/OUTPUT: Intake/Output Summary (Last 24 hours) at 09/20/2024 1608 Last data filed at 09/20/2024 0430 Gross per 24 hour Intake 600 ml Output -- Net 600 ml Past Medical History: Past Medical History: Diagnosis Date Atrial fibrillation (HCC) Diabetes mellitus (HCC) Hyperlipidemia Hypertension Hypothyroidism Neuropathy LABS: CBC: Recent Labs 09/18/24 1603 09/18/24 1616 09/19/24 1116 09/20/24 0348 WBC 8.7 -- 7.3 8.4 RBC 4.06 -- 3.92 4.25 HGB 12.5 14.6 12.2 13.1 HCT 38.1 -- 37.0 40.6 MCV 93.8 -- 94.4 95.5 RDW 13.4 -- 13.5 13.4 PLT 245 -- 253 254 BMP: Recent Labs 09/18/24 1603 09/18/24 2233 09/19/24 1116 09/20/24 0348 NA 132* -- 137 139 K 5.6* 4.5 4.0 4.3 CL 103 -- 106 110* CO2 18* -- 21* 21* BUN 33* -- 24* 22 CREATININE 1.41* -- 1.10 1.03 GLUCOSE 548* -- 286* 216* CALCIUM 9.2 -- 9.4 9.7 ANIONGAP 11 -- 10 8 LIVER PROFILE: Recent Labs 09/18/24 1603 AST 20 ALT 16 BILITOT 0.4 ALKPHOS 102 PROT 7.3 PT/INR: No results for input(s): "PROTIME", "INR" in the last 72 hours. CARDIAC ENZYMES: No results for input(s): "TROPONINI" in the last 72 hours. Procalcitonin: No results found for: "PROCAL" COVID-19 PCR: No results for input(s): "COVID19" in the last 72 hours. Objective: Vitals: BP 158/77 (BP Location: Left arm, Patient Position: Lying) Pulse 57 Temp 36.3 C (97.4 F) (Temporal) Resp 18 Ht 5' 10" (1.778 m) SpO2 100% BMI 28.70 kg/m Pulse Ox: SpO2 Av.5 % Min: 97 % Max: 100 % Supplemental O2: General appearance: No apparent distress, appears stated age and cooperative with exam HEENT: Normal cephalic, atraumatic without obvious deformity. Pupils equal, round, and reactive to light. Extra ocular muscles intact. Conjunctivae/corneas clear. Neck: Supple, with full range of motion. No jugular venous distention. Trachea midline. No lymphadenopathy. Respiratory: Normal respiratory effort. Clear to auscultation, bilaterally without Rales/Wheezes/Rhonchi. Cardiovascular: Regular rate and rhythm with normal S1/S2 without murmurs, rubs or gallops. Abdomen: Soft, non-tender, non-distended with normal bowel sounds. No rebound or guarding. Musculoskeletal: No clubbing, cyanosis or edema bilaterally. Full range of motion without deformity, +2 peripheral pulses in all extremities. Skin: Skin color, texture, turgor normal. No rashes or lesions. Neurologic: Neurovascularly intact without any focal sensory/motor deficits. Cranial nerves: II-XIIintact, grossly non-focal. Medications: sodium chloride, 75 mL/hr, Last Rate: 75 mL/hr (09/20/24 1000) amLODIPine, 5 mg, Oral, Daily apixaban, 5 mg, Oral, BID atenolol, 50 mg, Oral, Daily atorvastatin, 40 mg, Oral, Daily cefTRIAXone, 1,000 mg, IntraVENous, q24h fenofibrate, 160 mg, Oral, Daily gabapentin, 300 mg, Oral, BID insulin glargine, 20 Units, SubCUTAneous, Nightly insulin lispro, 0-12 Units, SubCUTAneous, TID WC And insulin lispro, 0-12 Units, SubCUTAneous, Nightly insulin lispro, 8 Units, SubCUTAneous, TID WC levothyroxine, 112 mcg, Oral, qAM AC lisinopril, 20 mg, Oral, Daily trospium, 20 mg, Oral, BID AC Assessment Uncontrolled jxj-omddlap-mwkjtcxds diabetes mellitus with hyperglycemia. Hyperkalemia. Acute on chronic kidney disease. Non-anion gap metabolic acidosis Mild pseudohyponatremia secondary to hyperglycemia. Elevated blood pressure. History of: Renal fibrillation on Eliquis. Hypertension Hyperlipidemia. Iye-focmgpf-trqophptd diabetes mellitus Hypothyroidism. Neuropathy. Plan: Lantus to 20 units nightly, lispro 8 units 3 times daily continue medium dose sliding scale. Blood sugars are improving. Hemoglobin A1c is 12.1 Endocrinology consult pending. Follow-up CBC BMP ordered. Other home medications reviewed and resumed appropriately. PT OT evaluation DVT prophylaxis: On Eliquis. Disposition: Pending Endo consult. Adjusting insulin. Possible discharge Saturday. -am labs, replace lytes prn -increase activity -DVT prophylaxis: [] Lovenox [] Heparin [] SCDs [x] Encourage ambulation [] Already on Anticoagulation Advance Directive: Full Code Discharge planning: TBD Fish Montes MD Division of Hospitalist Medicine Inpatient Medical Services/[facility] PAGER: [phone] * Chikis Denise RD - 09/19/2024 4:22 PM EST Nutrition- K= 4 - RD discontinued K+ restriction.. RD to follow * Chikis Denise RD - 09/19/2024 1:01 PM EST Nutrition Assessment Type and Reason for Visit: Initial, Positive Nutrition Screen (admitted with [facility] dm - high K) Nutrition Recommendations/Plan: Suggest to continue Adult diet Regular; Low Potassium (Less than 3000 mg/day); 5 carb choices (75 gm/meal) . Will monitor K levels and liberalize iK remains normal Await hbaic - declines diet education and assist status Please document PO intakes consistently in the flowsheet to better assess intake adequacy. Suggest standing wt as feasible Monitor labs, status, intakes to reassess. Follow up at least weekly Malnutrition Assessment: Malnutrition Status: At risk for malnutrition (Comment) (age, uti , [facility] dm) Context: Acute Illness Findings of the 6 clinical characteristics of malnutrition: Energy Intake: Mild decrease in energy intake (Comment) Weight Loss: Unable to assess Body Fat Loss: No significant body fat loss Muscle Mass Loss: No significant muscle mass loss Fluid Accumulation: Mild Extremities Maintenance Service Supervisor Strength: Normal ice cream mixer strength Nutrition Assessment: per MD-Reason for Admission: Uncontrolled hyperglycemia. Hyperkalemia. Suspecting urinary tract infection History Obtained From: patient HISTORY OF PRESENT ILLNESS: Hanna is a 84 y.o. female with significant past medical history of nqe-kmghyyy-zldbbijpx diabetes mellitus, hypertension, hyperlipide leah, hypothyroidism, atrial fibrillation on Eliquis and neuropathy. Was brought to the emergency room due to uncontrolled blood sugars, patient was in the ER yesterday and she was qualifying for DKA lytes protocol but patient refused admission and left the hospital. Today patient returned again dueto uncontrolled blood sugars also noticed increased frequency of urination and extremely thirsty, no signs of confusion patient is alert and oriented x 3, denies any fever chills or rigors, denies any abdominal pain nausea or vomitings. Workup in the emergency room again showed blood sugars 548, hydroxybutyrate within normal limits, pH normal. Patient received 1 dose of IV insulin, admitting patient for further management. per md-IMPRESSION: Uncontrolled lzq-piqboek-zqmzltvyz diabetes mellitus with hyperglycemia. Hyperkalemia. Acute on chronic kidney disease. Non-anion gap metabolic acidosis with Mild pseudohyponatremia secondary to hyperglycemia. Elevated blood pressure. Estimated Daily Nutrient Needs: Energy Requirements Based On: Kcal/kg Weight Used for Energy Requirements: [place] Weight for Energy Calculation (kg): 68 kg Total Energy Requirements (kcals/day): 25-28 or 1700-1 904 Weight Used for Protein Requirements: [place] Weight in Kg Used for Protein Requirements: 68 kg Estimated Total Protein (g/day): 1-1.2 or 68-82 Estimated Daily Total Fluid (ml/day): 1.7-1.9 liters Nutrition Related Findings: strong ice cream mixer, HBAIC pending, +2 ble, kait 20, k 4 ( was 5.6), gfr 49.3, glu 313 Wound Type: Stage I, Multiple (red between toe- rt foot- rt foot - bottom - ulcer) Current Nutrition Therapies: Adult diet Regular; Low Potassium (Less than 3000 mg/day); 5 carb choices (75 gm/meal) Current Oral Intake Average Meal Intake: 51-75% Average Supplements Intake: None Ordered, Refusing to take Anthropometric Measures: Height: 177.8 cm (5' 10") Current Body Weight: 90.7 kg (200 lb) [place] Body Weight (lbs) (Calculated): 150 lbs [place] Body Weight (Kg) (Calculated): 68 kg % [place] Body Weight (Calculated): 133.3 % BMI (kg/m2) (Calculated): 28.7 Nutrition Diagnosis: Altered nutrition-related lab values related to endocrine dysfuntion, other (comment) (uti) as evidenced by wounds, lab values (glu >600,wounds are chronic) Nutrition Interventions: Nutrition Education/Counseling: Education declined Coordination of Nutrition Care: Continue to monitor while inpatient Plan of Care discussed with: daughter ,patient Goals: Goals: Meet at least 75% of estimated needs, other (specify) Specify Other Goals: glucose and K will be controlled - Nutrition Monitoring and Evaluation: Behavioral-Environmental Outcomes: None Identified Food/Nutrient Intake Outcomes: Food and Nutrient Intake Physical Signs/Symptoms Outcomes: Biochemical Data, GI Status, Nausea or Vomiting, Fluid Status or Edema, Hemodynamic Status, Meal Time Behavior, Nutrition Focused Physical Findings, Skin, Other (Comment), Weight Discharge Planning: Continue current diet Chikis Denise RD Contact: *[phone] or secure chat * Fish Montes MD - 09/19/2024 11:03 AM EST Hospitalist Progress Note 09/19/2024 [phone]: Please page me ([phone]) for patient care issues. [phone]: Please page [facility] night Hospitalist for any issues. Subjective: Admit Date: 09/18/2024 PCP: No primary care provider on file. Room#: B4-644/B4-555 B Interval History: Patient is sitting on the bed, denies any abdominal pain nausea or vomitings No other significant overnight issues. Adult diet Regular; Low Potassium (Less than 3000 mg/day); 5 carb choices (75 gm/meal) @[id number]@ 24HR INTAKE/OUTPUT: Intake/Output Summary (Last 24 hours) at 09/19/2024 1104 Last data filed at 09/18/2024 1844 Gross per 24 hour Intake 1050 ml Output -- Net 1050 ml Past Medical History: Past Medical History: Diagnosis Date Atrial fibrillation (HCC) Diabetes mellitus (HCC) Hyperlipidemia Hypertension Hypothyroidism Neuropathy LABS: CBC: Recent Labs 09/18/24 1603 09/18/24 1616 WBC 8.7 -- RBC 4.06 -- HGB 12.5 14.6 HCT 38.1 -- MCV 93.8 -- RDW 13.4 -- PLT 245 -- BMP: Recent Labs 09/17/24 1222 09/17/24 1323 09/17/24 1432 09/18/24 1603 09/18/24 2233 NA 128* -- 133* 132* -- K 5.8* -- 4.8 5.6* 4.5 CL 98 -- 104 103 -- CO2 20* -- 22* 18* -- BUN 25* -- 22 33* -- CREATININE 1.49* -- 1.22* 1.41* -- GLUCOSE 613* 539* 484* 548* -- CALCIUM 9.6 -- 8.9 9.2 -- ANIONGAP 10 -- 7 11 -- LIVER PROFILE: Recent Labs 09/18/24 1603 AST 20 ALT 16 BILITOT 0.4 ALKPHOS 102 PROT 7.3 PT/INR: No results for input(s): "PROTIME", "INR" in the last 72 hours. CARDIAC ENZYMES: No results for input(s): "TROPONINI" in the last 72 hours. Procalcitonin: No results found for: "PROCAL" COVID-19 PCR: No results for input(s): "COVID19" in the last 72 hours. Objective: Vitals: BP 147/73 (BP Location: Left arm, Patient Position: Lying) Pulse 56 Temp 36.1 C (96.9 F) (Temporal) Resp 17 SpO2 100% Pulse Ox: SpO2 Av.8 % Min: 99 % Max: 100 % Supplemental O2: General appearance: No apparent distress, appears stated age and cooperative with exam HEENT: Normal cephalic, atraumatic without obvious deformity. Pupils equal, round, and reactive to light. Extra ocular muscles intact. Conjunctivae/corneas clear. Neck: Supple, with full range of motion. No jugular venous distention. Trachea midline. No lymphadenopathy. Respiratory: Normal respiratory effort. Clear to auscultation, bilaterally without Rales/Wheezes/Rhonchi. Cardiovascular: Regular rate and rhythm with normal S1/S2 without murmurs, rubs or gallops. Abdomen: Soft, non-tender, non-distended with normal bowel sounds. No rebound or guarding. Musculoskeletal: No clubbing, cyanosis or edema bilaterally. Full range of motion without deformity, +2 peripheral pulses in all extremities. Skin: Skin color, texture, turgor normal. No rashes or lesions. Neurologic: Neurovascularly intact without any focal sensory/motor deficits. Cranial nerves: II-XIIintact, grossly non-focal. Medications: sodium chloride, 75 mL/hr, Last Rate: 75 mL/hr (09/19/24 0942) amLODIPine, 5 mg, Oral, Daily apixaban, 5 mg, Oral, BID atenolol, 50 mg, Oral, Daily atorvastatin, 40 mg, Oral, Daily cefTRIAXone, 1,000 mg, IntraVENous, q24h fenofibrate, 160 mg, Oral, Daily gabapentin, 300 mg, Oral, BID insulin glargine, 20 Units, SubCUTAneous, Nightly insulin lispro, 0-12 Units, SubCUTAneous, TID WC And insulin lispro, 0-12 Units, SubCUTAneous, Nightly insulin lispro, 8 Units, SubCUTAneous, TID WC levothyroxine, 112 mcg, Oral, qAM AC lisinopril, 20 mg, Oral, Daily trospium, 20 mg, Oral, BID AC Assessment Uncontrolled vqw-hdbcsmb-exxjztzyw diabetes mellitus with hyperglycemia. Hyperkalemia. Acute on chronic kidney disease. Non-anion gap metabolic acidosis with Mild pseudohyponatremia secondary to hyperglycemia. Elevated blood pressure. History of: Renal fibrillation on Eliquis. Hypertension Hyperlipidemia. Ubi-edonvik-brrkthsic diabetes mellitus Hypothyroidism. Neuropathy. Plan: Blood sugars are still elevated in 200s, increase the Lantus to 20 units nightly, lispro 8 units 3 times daily continue medium dose sliding scale. Hemoglobin A1c pending. Continue IV fluids, BMP pending. Endocrinology consult pending. Follow-up CBC BMP ordered. Other home medications reviewed and resumed appropriately. PT OT evaluation DVT prophylaxis: On Eliquis. Disposition: Pending Endo consult. Adjusting insulin. Possible discharge Saturday. -am labs, replace lytes prn -increase activity -DVT prophylaxis: [] Lovenox [] Heparin [] SCDs [x] Encourage ambulation [] Already on Anticoagulation Advance Directive: Full Code Discharge planning: CHELSEA Montes MD Division of Hospitalist Medicine Inpatient Medical Services/[facility] PAGER: [phone] documented in this [facility]02-13-2025 [facility] 09-24-2024 Hospital course Narrative* Herman Pepper, DO - 09/24/2024 12:37 PM EST Hospitalist Discharge Summary Hanna Nelson : 1940 Admit date: 09/18/2024 Discharge date: 09/24/2024 Admitting Physician: Fish Montes MD Primary Care Physician: No primary care provider on file. 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 Hyperkalemia Acute renal insufficiency on CKD stage 3 Charcot arthropathy bilateral feet and left ankle Diabetic polyneuropathy Right foot ulceration Pseudohyponatremia NAGMA Afib on Eliquis HTN HLD Hypothyroidism Neuropathy Hospital Course: patient with poorly controlled DM type 2 with significant hyperglycemia and pseudohyponatremia, Hgb A1c of 12, endocrinology following, initially started on basal and prandial insulin regimen per endocrinology recs, however family had concerns regarding patient being able to self administer medications at home, discussed further with endocrinology, simpler anti- hyperglycemia regimen recommended per endocrinology. Glucose levels improved. Sodium levels normalized. Podiatry evaluated for right foot ulceration and charcot arthropathy on BL feet and ankles, recommended outpatientfollow up. Patient cleared by podiatry and endocrinology for discharge. Patient to follow up with PCP, podiatry, endocrinology outpatient in 1-2 weeks. Addendum 09/23/24 @ 16:59: patient son still very concerned about patient being on insulin. Discussed further with endocrinology, dose increased for metformin and glimepiride. No insulin on discharge,patient to follow up with endocrinology outpatient in 1 week. Patient remains stable for discharge. Patient had further diabetic education, patient discharged to home in improved and stable conditionon 09/24/24. Consults: IP CONSULT TO GERIATRICS IP WOUND CARE NURSE CONSULT TO EVAL IP CONSULT TO ENDOCRINOLOGY IP CONSULT TO PODIATRY Discharge Instructions: Diet: Adult diet Regular; 5 carb choices (75 gm/meal) Activity: as tolerated Recommended Outpatient Tests: Disposition: Patient discharged in stable condition to home. LABS: CBC: Recent Labs 09/22/24 0532 09/23/2424409/24/24245 WBC 7.0 6.7 6.7 RBC 3.97 3.88 3.80 HGB 12.2 11.7 11.7 HCT 38.1 37.3 36.8 MCV 96.0 96.1 96.8 RDW 13.7 13.6 13.5 PLT 225 229 215 BMP: Recent Labs 09/22/24 0532 09/23/2424409/24/24245 NA 139 139 139 K 4.3 4.3 4.4 CL 108* 111* 111* CO2 21* 19* 19* BUN 29* 35* 35* CREATININE 1.04 1.08 1.07 GLUCOSE 224* 255* 238* CALCIUM 8.9 9.0 8.8 ANIONGAP 10 9 9 LIVER PROFILE:No results for input(s): "AST", "ALT", "BILITOT", "ALKPHOS", "PROT" in the last 72 hours. No lab exists for component: "LABALBU" PT/INR: No results for input(s): "PROTIME", "INR" in the last 72 hours. CARDIAC ENZYMES: No results for input(s): "TROPONINI" in the last 72 hours. Procalcitonin: No results found for: "PROCAL" COVID-19 PCR: No results for input(s): "COVID19" in the last 72 hours. Vitals: BP 133/66 (BP Location: Left arm, Patient Position: Lying) Pulse 63 Temp (!) 35.7 C (96.3 F) (Temporal) Resp 16 Ht 5' 10" (1.778 m) SpO2 100% BMI 28.70 kg/m Pulse Ox: SpO2 Av % Min: 98 % Max: 100 % Supplemental O2: General appearance: No apparent distress, appears stated age and cooperative with exam, female in NAD Respiratory: Normal respiratory effort. CTA BL, no wheezing Cardiovascular: Regular rate and rhythm with no murmur Abdomen: Soft, non-tender, non-distended Skin: right foot ulceration and BL foot charcot foot deformity, 1+ BL LE edema, Distal pulses present in BL LE. Neurologic: grossly non-focal. Discharge Medications: Medication List START taking these medications Alcohol Prep 70 % pads 1 Pad 3 times daily. Blood Glucose Monitor System w/Device kit Check glucose 3x daily ergocalciferol 1.25 MG (16718 UT) capsule Commonly known as: Vitamin D2 Take 1 capsule (1.25 mg) by mouth 1 (one) time per week for 7 doses. Start taking on: October 01, 2024 insulin degludec 100 UNIT/ML injection Commonly known as: Tresiba FlexTouch Inject 30 Units under the skin Nightly. Lancets Check glucose x3 daily Tradjenta 5 MG tablet Generic drug: linaGLIPtin Take 1 tablet (5 mg) by mouth daily. CONTINUE taking these medications amLODIPine 5 MG tablet Commonly known as: Norvasc atenolol 50 MG tablet Commonly known as: Tenormin atorvastatin 40 MG tablet Commonly known as: Lipitor Eliquis 5 MG tablet Generic drug: apixaban fenofibrate 160 MG tablet Commonly known as: Triglide gabapentin 300 MG capsule Commonly known as: Neurontin glucose blood test strip Use as instructed levothyroxine 112 MCG capsule Commonly known as: Tirosint lisinopril 20 MG tablet metFORMIN 500 MG tablet Commonly known as: Glucophage Take 1 tablet (500 mg) by mouth 2 times daily (with meals). oxybutynin 5 MG tablet Commonly known as: Ditropan STOP taking these medications glimepiride 4 MG tablet Commonly known as: Amaryl Where to Get Your Medications These medications were sent to [facility] [address] Alcohol Prep 70 % pads Blood Glucose Monitor System w/Device kit Lancets Tradjenta 5 MG tablet These medications were sent to [facility] [address] [facility] [address] Hours: Saturday to Saturday 10 am to 6 pm ergocalciferol 1.25 MG (30923 UT) capsule insulin degludec 100 UNIT/ML injection metFORMIN 500 MG tablet Recommended Follow-up: PCP and endocrinology and podiatry outpatient in 1-2 weeks. @READMISSIONRISK@ Complexity of Follow up: [] Moderate Complexity: follow up within 7-14 calendar days (13416) [x] Severe Complexity: follow up within 7 calendar days (40408) Follow up Testing, Pending results or Referrals at Transitional Care Visit: [x] yes [] no Instructions to MA: Please call patient on day after discharge (must document patient contacted within 2 business days of discharge). Follow up questions for MA: 1. Did you get medications filled and taking them as instructed from discharge? 2. Are you following your discharge instructions from your hospital stay? 3. Please confirm patient is scheduled for a follow up appointment within the above time frame. Signed: Herman Pepper DO Division of Hospitalist Medicine Inpatient Medical Services/[facility] 09/24/2024, 12:37 PM Total time Spent on Discharge: 32 minutes * Herman Pepper DO - 09/23/2024 3:12 PM EST Hospitalist Discharge Summary Hanna Nelson : 1940 Admit date: 09/18/2024 Discharge date: 09/23/2024 Admitting Physician: Fish Montes MD Primary Care Physician: No primary care provider on file. 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 Hyperkalemia Acute renal insufficiency on CKD stage 3 Charcot arthropathy bilateral feet and left ankle Diabetic polyneuropathy Right foot ulceration Pseudohyponatremia NAGMA Afib on Eliquis HTN HLD Hypothyroidism Neuropathy Hospital Course: patient with poorly controlled DM type 2 with significant hyperglycemia and pseudohyponatremia, Hgb A1c of 12, endocrinology following, initially started on basal and prandial insulin regimen per endocrinology recs, however family had concerns regarding patient being able to self administer medications at home, discussed further with endocrinology, simpler anti- hyperglycemia regimen recommended per endocrinology. Glucose levels improved. Sodium levels normalized. Podiatry evaluated for right foot ulceration and charcot arthropathy on BL feet and ankles, recommended outpatientfollow up. Patient cleared by podiatry and endocrinology for discharge. Patient to follow up with PCP, podiatry, endocrinology outpatient in 1-2 weeks. She is discharged to home in improved and stable condition on 09/23/24. Addendum 09/23/24 @ 16:59: patient son still very concerned about patient being on insulin. Discussed further with endocrinology, dose increased for metformin and glimepiride. No insulin on discharge,patient to follow up with endocrinology outpatient in 1 week. Patient remains stable for discharge. Consults: IP CONSULT TO GERIATRICS IP WOUND CARE NURSE CONSULT TO EVAL IP CONSULT TO ENDOCRINOLOGY IP CONSULT TO PODIATRY Discharge Instructions: Diet: Adult diet Regular; 5 carb choices (75 gm/meal) Activity: as tolerated Recommended Outpatient Tests: Disposition: Patient discharged in stable condition to home. LABS: CBC: Recent Labs 09/21/245709/22/24 0532 09/23/24 0245 WBC 7.8 7.0 6.7 RBC 3.80 3.97 3.88 HGB 11.7 12.2 11.7 HCT 36.5 38.1 37.3 MCV 96.1 96.0 96.1 RDW 13.3 13.7 13.6 PLT 222 225 229 BMP: Recent Labs 09/21/245709/22/2432 09/23/24 0245 NA 136 139 139 K 4.3 4.3 4.3 CL 108* 108* 111* CO2 19* 21* 19* BUN 29* 29* 35* CREATININE 1.04 1.04 1.08 GLUCOSE 265* 224* 255* CALCIUM 8.6* 8.9 9.0 ANIONGAP 9 10 9 LIVER PROFILE:No results for input(s): "AST", "ALT", "BILITOT", "ALKPHOS", "PROT" in the last 72 hours. No lab exists for component: "LABALBU" PT/INR: No results for input(s): "PROTIME", "INR" in the last 72 hours. CARDIAC ENZYMES: No results for input(s): "TROPONINI" in the last 72 hours. Procalcitonin: No results found for: "PROCAL" COVID-19 PCR: No results for input(s): "COVID19" in the last 72 hours. Vitals: BP 121/66 (BP Location: Left arm, Patient Position: Lying) Pulse 61 Temp (!) 35.7 C (96.3 F) (Temporal) Resp 18 Ht 5' 10" (1.778 m) SpO2 99% BMI 28.70 kg/m Pulse Ox: SpO2 Av.3 % Min: 97 % Max: 99 % Supplemental O2: General appearance: No apparent distress, appears stated age and cooperative with exam, female in NAD Respiratory: Normal respiratory effort. CTA BL, no wheezing Cardiovascular: Regular rate and rhythm with no murmur Abdomen: Soft, non-tender, non-distended Skin: right foot ulceration and BL foot charcot foot deformity, 1+ BL LE edema, Distal pulses present in BL LE. Neurologic: grossly non-focal. Discharge Medications: Medication List START taking these medications Alcohol Prep 70 % pads 1 Pad 3 times daily. Blood Glucose Monitor System w/Device kit Check glucose 3x daily Lancets Check glucose x3 daily Tradjenta 5 MG tablet Generic drug: linaGLIPtin Take 1 tablet (5 mg) by mouth daily. CHANGE how you take these medications glimepiride 4 MG tablet Commonly known as: Amaryl Take 1 tablet (4 mg) by mouth 2 times daily. What changed: when to take this metFORMIN 500 MG tablet Commonly known as: Glucophage Take 2 tablets (1,000 mg) by mouth 2 times daily (with meals). What changed: how much to take CONTINUE taking these medications amLODIPine 5 MG tablet Commonly known as: Norvasc atenolol 50 MG tablet Commonly known as: Tenormin atorvastatin 40 MG tablet Commonly known as: Lipitor Eliquis 5 MG tablet Generic drug: apixaban fenofibrate 160 MG tablet Commonly known as: Triglide gabapentin 300 MG capsule Commonly known as: Neurontin glucose blood test strip Use as instructed levothyroxine 112 MCG capsule Commonly known as: Tirosint lisinopril 20 MG tablet oxybutynin 5 MG tablet Commonly known as: Ditropan Where to Get Your Medications These medications were sent to [facility] [address] [facility] [address] Hours: Saturday to Saturday 10 am to 6 pm Alcohol Prep 70 % pads Blood Glucose Monitor System w/Device kit glimepiride 4 MG tablet Lancets metFORMIN 500 MG tablet Tradjenta 5 MG tablet Recommended Follow-up: PCP and endocrinology and podiatry outpatient in 1-2 weeks. @READMISSIONRISK@ Complexity of Follow up: [] Moderate Complexity: follow up within 7-14 calendar days (60267) [x] Severe Complexity: follow up within 7 calendar days (62040) Follow up Testing, Pending results or Referrals at Transitional Care Visit: [x] yes [] no Instructions to MA: Please call patient on day after discharge (must document patient contacted within 2 business days of discharge). Follow up questions for MA: 1. Did you get medications filled and taking them as instructed from discharge? 2. Are you following your discharge instructions from your hospital stay? 3. Please confirm patient is scheduled for a follow up appointment within the above time frame. Signed: Herman Pepper DO [facility] 09/23/2024, 3:12 PM Total time Spent on Discharge: 32 minutes documented in this [facility]02-13-2025 Note* Care Coordination - MEREDITH Gonzalez - 09/24/2024 11:06 AM EST Asked by [facility] to reach out to pts son, Hi, to discuss any decision that may have been made yesterday about their choice for care after pt dc's. I called Hi and left a vm requesting a return call to discuss above. [facility]02-13-2025 Note* Care Coordination - MEREDITH Gonzalez - 09/24/2024 11:06 AM EST Asked by [facility] to reach out to pts son, Hi, to discuss any decision that may have been made yesterday about their choice for care after pt dc's. I called Hi and left a vm requesting a return call to discuss above. [place] [id number] NoteProblem: Problem Interventions Goal: Assess Nutritional Intake Outcome: Progressing Goal: Promote nutritional intake [facility] Plan of care note* Care Plan - Sawyer Peoples RN - 09/24/2024 10:20 AM EST Problem: Problem Interventions Goal: Assess Nutritional Intake Outcome: Progressing Goal: Promote nutritional intake Outcome: Progressing [id number] Plan of care note* Care Plan - Celine Claudio RN - 09/24/2024 1:47 AM EST Problem: Pain - Adult Goal: Verbalizes/displays adequate comfort level or baseline comfort level Outcome: Progressing Flowsheets Taken 09/24/2024 0147 Verbalizes/displays adequate comfort level or baseline comfort level: Encourage patient to monitor pain and request assistance Assess pain using appropriate pain scale Administer analgesics based on type and severity of pain and evaluate response Notify Licensed Independent Practitioner if interventions unsuccessful or patient reports new pain Taken 09/23/2024 2000 Verbalizes/displays adequate comfort level or baseline comfort level: Encourage patient to monitor pain and request assistance Assess pain using appropriate pain scale Administer analgesics based on type and severity of pain and evaluate response Notify Licensed Independent Practitioner if interventions unsuccessful or patient reports new pain Taken 09/23/2024 1858 Verbalizes/displays adequate comfort level or baseline comfort level: Encourage patient to monitor pain and request assistance Assess pain using appropriate pain scale Administer analgesics based on type and severity of pain and evaluate response Notify Licensed Independent Practitioner if interventions unsuccessful or patient reports new pain Problem: Safety - Adult Goal: Free from fall injury Outcome: Progressing Flowsheets (Taken 09/24/2024 014) Free from fall injury: Instruct family/caregiver on patient safety Problem: Chronic Conditions and Co-morbidities Goal: Patient's chronic conditions and co-morbidity symptoms are monitored and maintained or improved Outcome: Progressing Flowsheets (Taken 09/24/2024 014) Care Plan - Patient's Chronic Conditions and Co-Morbidity Symptoms are Monitored and Maintained or Improved: Monitor and assess patient's chronic conditions and comorbid symptoms for stability, deterioration, or improvement [facility] [id number] Telephone encounter Note* Telephone Encounter - ALEJANDRINA Urias CNP - 09/23/2024 4:03 PM EST Hi Tiffany, This patient refused insulin for home going. She won't qualify for Javier sensors. Can you cancel this request? Thanks! [facility] [id number] Telephone encounter Note* Telephone Encounter - Harinder Temple - 09/23/2024 4:01 PM EST JUNIOR PROGRAMMER appt cancelled by MEREDITH, Will defer for 3 days and follow up [facility]02-12-2025 [facility]02-12-2025 Note* Care Coordination - MEREDITH Jhaveri - 09/23/2024 2:03 PM EST S/W, resource I did meet with patient Son Hi for discussion of next steps and resources. Hi concerned about patient inability to manage her Insulin, this is a new regiment for her. StaffRN did support that the patient is not grasping how to administer her insulin. Chart reviewed, therapy recommends HHC vs Home with assist PRN. I did review this with Son Hi. I did review that Medicare/facilities may not consider just the Diabetic teaching as skilled under Medicare for payment. I did indicate we could attempt to see if this would be accepted. Son stated theywould consider Private Paying for facility as well if needed. They would like this to be a short term arrangement. I did review Assisted Living, Adult Day Centers and Private Duty Caregivers. Son noted he feels they would prefer the patient to return eventually to her Condo, as she just bought it and just moved here. He was more ameniable to Private Pay caregivers coming in to help. Patient was a [place], did discuss possible aide and attendance assist as well. Son indicated the patient would not qualify for Medicaid as she does have some assets. SNF listing, Private Duty Caregiver listing and [facility] info provided. Son is agreeable to me making a referral to [facility]. At this time, plan is for Son to discuss SNFs with his Sister. I did update TCC of this and did provide TCC number as well as my number. [facility] [id number] Note* Care Coordination - MEREDITH Jhaveri - 09/23/2024 2:03 PM EST S/W, resource I did meet with patient Son Hi for discussion of next steps and resources. Hi concerned about patient inability to manage her Insulin, this is a new regiment for her. StaffRN did support that the patient is not grasping how to administer her insulin. Chart reviewed, therapy recommends HHC vs Home with assist PRN. I did review this with Son Hi. I did review that Medicare/facilities may not consider just the Diabetic teaching as skilled under Medicare for payment. I did indicate we could attempt to see if this would be accepted. Son stated theywould consider Private Paying for facility as well if needed. They would like this to be a short term arrangement. I did review Assisted Living, Adult Day Centers and Private Duty Caregivers. Son noted he feels they would prefer the patient to return eventually to her Condo, as she just bought it and just moved here. He was more ameniable to Private Pay caregivers coming in to help. Patient was a [place], did discuss possible aide and attendance assist as well. Son indicated the patient would not qualify for Medicaid as she does have some assets. SNF listing, Private Duty Caregiver listing and [facility] info provided. Son is agreeable to me making a referral to [facility]. At this time, plan is for Son to discuss SNFs with his Sister. I did update TCC of this and did provide TCC number as well as my number. [facility] [id number] Note* Care Coordination - MEREDITH Gonzalez - 09/23/2024 1:54 PM EST I received a secure chat from [facility] requesting I cancel appt with family practice. family is now going to follow with Dr. Medrano in [place] next week. Sent secure chat to [facility] scheduling requesting appt be cancelled. [place] [id number] Note* Care Coordination - MEREDITH Gonzalez - 09/23/2024 1:54 PM EST I received a secure chat from [facility] requesting I cancel appt with family practice. family is now going to follow with Dr. Medrano in [place] next week. Sent secure chat to [facility] scheduling requesting appt be cancelled. [place] [id number] Note* Care Coordination - Chikis Carson RN - 09/23/2024 1:47 PM EST Received message from Dr. Medrano office that they are able to get patient in next week. Did updatethat will need [facility] set up once establishes with Dr. Medrano. Did update central scheduling to please cancel appt with family practice as family would like to follow with Dr. Medrano upon discharge. .E lectronically signed by Chikis Carson RN on 09/23/2024 at 1:49 PM [id number] Note* Care Coordination - Chikis Carson RN - 09/23/2024 1:47 PM EST Received message from Dr. Medrano office that they are able to get patient in next week. Did updatethat will need [facility] set up once establishes with Dr. Medrano. Did update central scheduling to please cancel appt with family practice as family would like to follow with Dr. Medrano upon discharge. .E lectronically signed by Chikis Carson RN on 09/23/2024 at 1:49 PM [facility] [id number] NoteProblem: Problem Interventions Goal: Assess Nutritional Intake Outcome: Progressing Goal: Promote nutritional intake Out[facility]: [facility] Plan of care note* Care Plan - Sawyer Peoples RN - 09/23/2024 11:03 AM EST Problem: Problem Interventions Goal: Assess Nutritional Intake Outcome: Progressing Goal: Promote nutritional intake Outcome: Progressing [facility] [id number] Note* Care Coordination - MEREDITH Gonzalez - 09/23/2024 10:36 AM EST I received a message from [facility] informing -patient has new patient appt with family practice on Nov 09. is there any way we can get it moved up as she is newly diagnosed with insulin dependent diabetes? Working with [facility] Scheduling: They were able to get [facility] have patient arrive 15 mins early with ID, insurance card and list of current medications. TCC informed and appt place in pts AVS/ [facility]02-12-2025 Note* Care Coordination - MEREDITH Gonzalez - 09/23/2024 10:36 AM EST I received a message from MARIA C informing -patient has new patient appt with family practice on Nov 09. is there any way we can get it moved up as she is newly diagnosed with insulin dependent diabetes? Working with [facility] Scheduling: They were able to get new patient [facility] have patient arrive 15 mins early with ID, insurance card and list of current medications. TCC informed and appt place in pts AVS/ [facility] [id number] Telephone encounter Note* Telephone Encounter - Radha Urbina RN - 09/23/2024 9:36 AM EST S: Hospital provider requesting earlier new patient appointment. B: Pt currently hospitalized with DM, uncontrolled. A: Pt currently has new patient appointment scheduled 11/09/24. Message received "we can't get hhc until she establishes with pcp and she is having problems with adm her insulin. the family was wanting some other resources for home . can you provide them with that?" R: Office called to assist with sooner New patient appointment to be schedule do to above issues. New patient appointment schedule 09/29/[address] Ojeda. [facility] [id number] Plan of care note* Care Plan - Celine Claudio RN - 09/23/2024 1:59 AM EST Problem: Pain - Adult Goal: Verbalizes/displays adequate comfort level or baseline comfort level Outcome: Progressing Flowsheets (Taken 09/23/2024 0158) Verbalizes/displays adequate comfort level or baseline comfort level: Encourage patient to monitor pain and request assistance Assess pain using appropriate pain scale Administer analgesics based on type and severity of pain and evaluate response Notify Licensed Independent Practitioner if interventions unsuccessful or patient reports new pain Problem: Safety - Adult Goal: Free from fall injury Outcome: Progressing Flowsheets (Taken 09/23/2024 0158) Free from fall injury: Instruct family/caregiver on patient safety Problem: Chronic Conditions and Co-morbidities Goal: Patient's chronic conditions and co-morbidity symptoms are monitored and maintained or improved Outcome: Progressing Flowsheets (Taken 09/23/2024 0158) Care Plan - Patient's Chronic Conditions and Co-Morbidity Symptoms are Monitored and Maintained or Improved: Monitor and assess patient's chronic conditions and comorbid symptoms for stability, deterioration, or improvement [id number] NotePts family is requesting extra resources to help pt at home. Pt struggling with insulin education this RN expressed concern that pt will not be able to dose herself properly at home. Dr. Pepper Notified. Case management notified.[facility]02-11-2025 Nurse Note* Estiven Kay RN - 09/22/2024 6:30 PM EST Pts family is requesting extra resources to help pt at home. Pt struggling with insulin education this RN expressed concern that pt will not be able to dose herself properly at home. Dr. Pepper Notified. Case management notified. [id number] Nurse Note* Estiven Kay RN - 09/22/2024 6:30 PM EST Pts family is requesting extra resources to help pt at home. Pt struggling with insulin education this RN expressed concern that pt will not be able to dose herself properly at home. Dr. Pepper Notified. Case management notified. documented in this [facility]02-11-2025 Consult note* Nallely Alas DPM - 09/22/2024 10:24 AM ESTAssociated Order(s): IP CONSULT TO PODIATRY Images from the original note were not included. Department of Podiatry Consult Note Reason for Consult: Patient seen for podiatric consultation concerning an ulceration over the rightfoot. Requesting Physician: MD Evgeny CHIEF COMPLAINT: Patient relates she had a longstanding wound on the plantar aspect of her right foot for over 1 year. She is from the [facility] and has been going to wound center and seeing other doctors and date. HISTORY OF PRESENT ILLNESS: The patient is a 84 y.o. female with significant past medical history of Past Medical History: Diagnosis Date Atrial fibrillation (HCC) Diabetes mellitus (HCC) Hyperlipidemia Hypertension Hypothyroidism Neuropathy Past Medical History: Past Medical History: Diagnosis Date Atrial fibrillation (HCC) Diabetes mellitus (HCC) Hyperlipidemia Hypertension Hypothyroidism Neuropathy Past Surgical History: Past Surgical History: Procedure Laterality Date BACK SURGERY CHOLECYSTECTOMY Current Medications: Current Facility-Administered Medications: acetaminophen (Tylenol) tablet 650 mg, 650 mg, Oral, q6h PRN OR acetaminophen (Tylenol) suppository 650 mg, 650 mg, Rectal, q6h PRN, Fish Montes MD amLODIPine (Norvasc) tablet 5 mg, 5 mg, Oral, Daily, Fish Montes MD, 5 mg at 09/22/24 09 apixaban (Eliquis) tablet 5 mg, 5 mg, Oral, BID, Fish Montes MD, 5 mg at 09/22/24 09 atenolol (Tenormin) tablet 50 mg, 50 mg, Oral, Daily, Fish Montes MD, 50 mg at 09/22/24906 atorvastatin (Lipitor) tablet 40 mg, 40 mg, Oral, Daily, Fish Montes MD, 40 mg at 09/22/24 09 dextrose 5 % infusion, 100 mL/hr, IntraVENous, PRN, Fish Montes MD dextrose 50 % solution 12.5 g, 12.5 g, IntraVENous, PRN, Fish Montes MD fenofibrate (Triglide) tablet 160 mg, 160 mg, Oral, Daily, Fish Montes MD, 160 mg at 09/22/24906 gabapentin (Neurontin) capsule 300 mg, 300 mg, Oral, BID, Fish Montes MD, 300 mg at 09/22/24 09 glucagon (human recombinant) injection 1 mg, 1 mg, IntraMUSCular, PRN, Fish Montes MD glucose oral gel 15 g, 15 g, Oral, PRN, Fish Montes MD insulin glargine (Lantus) injection 24 Units, 24 Units, SubCUTAneous, Nightly, Priscila Laguerre APRN - NUCLEAR PLANT INSTRUMENT TECHNICIAN, 24 Units at 09/21/24 2155 insulin lispro (HumaLOG) pen injection 0-12 Units, 0-12 Units, SubCUTAneous, TID POORNIMA, Priscila Laguerre, ALEJANDRINA Ogden CNP, 6 Units at 09/22/24 0908 insulin lispro (HumaLOG) pen injection 10 Units, 10 Units, SubCUTAneous, TID POORNIMA, Priscila Laguerre, ALEJANDRINA Ogden CNP, 10 Units at 09/22/24 09 levothyroxine (Synthroid, Levoxyl) tablet 112 mcg, 112 mcg, Oral, qAM AC, Fish Montes MD, 112 mcg at 09/22/24 0603 lisinopril tablet 20 mg, 20 mg, Oral, Daily, Fish Montes MD, 20 mg at 09/22/24 0907 melatonin tablet 3 mg, 3 mg, Oral, Nightly PRN, Day Cardenas, ALEJANDRINA - KYREE ondansetron ODT (Zofran-ODT) disintegrating tablet 4 mg, 4 mg, Oral, q8h PRN OR ondansetron (Zofran) injection 4 mg, 4 mg, IntraVENous, q6h PRN, Fish Montes MD polyethylene glycol (PEG) 3350 (Miralax) packet 17 g, 17 g, Oral, Daily PRN, Fish Montes MD trospium (Sanctura) tablet 20 mg, 20 mg, Oral, BID AC, Fish Montes MD, 20 mg at 09/22/24 0603 Allergies: No Known Allergies Social History: Social History Socioeconomic History Marital status: Spouse name: Not on file Number of children: Not on file Years of education: Not on file Highest education level: Not on file Occupational History Not on file Tobacco Use Smoking status: Former Current packs/day: 0.00 Types: Cigarettes Quit date: 1965 Years since quittin.1 Smokeless tobacco: Never Vaping Use Vaping status: Never Used Substance and Sexual Activity Alcohol use: Not Currently Drug use: Never Sexual activity: Not on file Other Topics Concern Not on file Social History Narrative Not on file Social Drivers of Health Financial Resource Strain: Not on file Food Insecurity: Not on file Transportation Needs: No Transportation Needs (09/18/2024) PRAPARE - Transportation Lack of Transportation (Medical): No Lack of Transportation (Non-Medical): No Physical Activity: Not on file Stress: Not on file Social Connections: Not on file Intimate Partner Violence: Not At Risk (09/18/2024) Humiliation, Afraid, Rape, and Kick questionnaire Fear of Current or Ex-Partner: No Emotionally Abused: No Physically Abused: No Sexually Abused: No Housing Stability: Unknown (09/18/2024) Housing Stability Vital Sign Unable to Pay for Housing in the Last Year: No Number of Times Moved in the Last Year: Not on file Homeless in the Last Year: No Family History: No family history on file. REVIEW OF SYSTEMS: Review of Systems point review of system negative other than the above HPI. PHYSICAL EXAM: Physical Exam Vitals: BP 139/93 (BP Location: Left arm, Patient Position: Lying) Pulse 72 Temp 36.1 C (97 F) (Temporal) Resp 17 Ht 5' 10" (1.778 m) SpO2 97% BMI 28.70 kg/m SKIN: 1.5 cm ulceration plantar right midfoot. No erythema no active drainage. Mild hyperkeratotic halo. There is brown eschar on the distal aspect of the left second toe. No sign of infection in this area . NAILS: Clinically mycotic NEUROLOGIC: Loss of protective senses bilateral pedal pulses are palpable VASCULAR: Pedal pulses are palpable MUSCULOSKELETAL: Severe pes planus with forefoot abduction bilateral consistent with posterior tibial tendon dysfunction as well as Charcot joint bilateral ulceration right foot. 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 Reviewed findings and treatment options with patient. I agree with wound care nurse practitioner as far as wound care orders. Continue current treatment recommend follow-up as an outpatient [place] wound clinic or patient relates she has an appointment. Thank you for the opportunity participate in the care of your patient. Nallely Alas DPM 09/22/2024 10:25 AM [facility]02-11-2025 Consult note* Nallely Bobo Alas, DPM - 09/22/2024 10:24 AM ESTAssociated Order(s): IP CONSULT TO PODIATRY Images from the original note were not included. Department of Podiatry Consult Note Reason for Consult: Patient seen for podiatric consultation concerning an ulceration over the rightfoot. Requesting Physician: MD Evgeny CHIEF COMPLAINT: Patient relates she had a longstanding wound on the plantar aspect of her right foot for over 1 year. She is from the [facility] and has been going to wound center and seeing other doctors and date. HISTORY OF PRESENT ILLNESS: The patient is a 84 y.o. female with significant past medical history of Past Medical History: Diagnosis Date Atrial fibrillation (HCC) Diabetes mellitus (HCC) Hyperlipidemia Hypertension Hypothyroidism Neuropathy Past Medical History: Past Medical History: Diagnosis Date Atrial fibrillation (HCC) Diabetes mellitus (HCC) Hyperlipidemia Hypertension Hypothyroidism Neuropathy Past Surgical History: Past Surgical History: Procedure Laterality Date BACK SURGERY CHOLECYSTECTOMY Current Medications: Current Facility-Administered Medications: acetaminophen (Tylenol) tablet 650 mg, 650 mg, Oral, q6h PRN OR acetaminophen (Tylenol) suppository 650 mg, 650 mg, Rectal, q6h PRN, Fish Montes MD amLODIPine (Norvasc) tablet 5 mg, 5 mg, Oral, Daily, Fish Montes MD, 5 mg at 09/22/24 09 apixaban (Eliquis) tablet 5 mg, 5 mg, Oral, BID, Fish Montes MD, 5 mg at 09/22/24 09 atenolol (Tenormin) tablet 50 mg, 50 mg, Oral, Daily, Fish Montes MD, 50 mg at 09/22/24 09 atorvastatin (Lipitor) tablet 40 mg, 40 mg, Oral, Daily, Fish Montes MD, 40 mg at 09/22/24 0907 dextrose 5 % infusion, 100 mL/hr, IntraVENous, PRN, Fish Montes MD dextrose 50 % solution 12.5 g, 12.5 g, IntraVENous, PRN, Fish Montes MD fenofibrate (Triglide) tablet 160 mg, 160 mg, Oral, Daily, Fish Montes MD, 160 mg at 09/22/24 0907 gabapentin (Neurontin) capsule 300 mg, 300 mg, Oral, BID, Fish Montes MD, 300 mg at 09/22/24 09 glucagon (human recombinant) injection 1 mg, 1 mg, IntraMUSCular, PRN, Fish Montes MD glucose oral gel 15 g, 15 g, Oral, PRN, Fish Montes MD insulin glargine (Lantus) injection 24 Units, 24 Units, SubCUTAneous, Nightly, ALEJANDRINA Urias CNP, 24 Units at 09/21/24 215 insulin lispro (HumaLOG) pen injection 0-12 Units, 0-12 Units, SubCUTAneous, TID WC, ALEJANDRINA Urias CNP, 6 Units at 09/22/24 09 insulin lispro (HumaLOG) pen injection 10 Units, 10 Units, SubCUTAneous, TID , ALEJANDRINA Urias CNP, 10 Units at 09/22/24 09 levothyroxine (Synthroid, Levoxyl) tablet 112 mcg, 112 mcg, Oral, qAM AC, Fish Montes MD, 112 mcg at 09/22/24 0603 lisinopril tablet 20 mg, 20 mg, Oral, Daily, Fish Montes MD, 20 mg at 09/22/24 0907 melatonin tablet 3 mg, 3 mg, Oral, Nightly PRN, Day Cardenas APRN - KYREE ondansetron ODT (Zofran-ODT) disintegrating tablet 4 mg, 4 mg, Oral, q8h PRN OR ondansetron (Zofran) injection 4 mg, 4 mg, IntraVENous, q6h PRN, Fish Montes MD polyethylene glycol (PEG) 3350 (Miralax) packet 17 g, 17 g, Oral, Daily PRN, Fish Montes MD trospium (Sanctura) tablet 20 mg, 20 mg, Oral, BID AC, Fish Montes MD, 20 mg at 09/22/24 0603 Allergies: No Known Allergies Social History: Social History Socioeconomic History Marital status: Spouse name: Not on file Number of children: Not on file Years of education: Not on file Highest education level: Not on file Occupational History Not on file Tobacco Use Smoking status: Former Current packs/day: 0.00 Types: Cigarettes Quit date: 1965 Years since quittin.1 Smokeless tobacco: Never Vaping Use Vaping status: Never Used Substance and Sexual Activity Alcohol use: Not Currently Drug use: Never Sexual activity: Not on file Other Topics Concern Not on file Social History Narrative Not on file Social Drivers of Health Financial Resource Strain: Not on file Food Insecurity: Not on file Transportation Needs: No Transportation Needs (09/18/2024) PRAPARE - Transportation Lack of Transportation (Medical): No Lack of Transportation (Non-Medical): No Physical Activity: Not on file Stress: Not on file Social Connections: Not on file Intimate Partner Violence: Not At Risk (09/18/2024) Humiliation, Afraid, Rape, and Kick questionnaire Fear of Current or Ex-Partner: No Emotionally Abused: No Physically Abused: No Sexually Abused: No Housing Stability: Unknown (09/18/2024) Housing Stability Vital Sign Unable to Pay for Housing in the Last Year: No Number of Times Moved in the Last Year: Not on file Homeless in the Last Year: No Family History: No family history on file. REVIEW OF SYSTEMS: Review of Systems point review of system negative other than the above HPI. PHYSICAL EXAM: Physical Exam Vitals: BP 139/93 (BP Location: Left arm, Patient Position: Lying) Pulse 72 Temp 36.1 C (97 F) (Temporal) Resp 17 Ht 5' 10" (1.778 m) SpO2 97% BMI 28.70 kg/m SKIN: 1.5 cm ulceration plantar right midfoot. No erythema no active drainage. Mild hyperkeratotic halo. There is brown eschar on the distal aspect of the left second toe. No sign of infection in this area . NAILS: Clinically mycotic NEUROLOGIC: Loss of protective senses bilateral pedal pulses are palpable VASCULAR: Pedal pulses are palpable MUSCULOSKELETAL: Severe pes planus with forefoot abduction bilateral consistent with posterior tibial tendon dysfunction as well as Charcot joint bilateral ulceration right foot. 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 Reviewed findings and treatment options with patient. I agree with wound care nurse practitioner as far as wound care orders. Continue current treatment recommend follow-up as an outpatient [place] wound clinic or patient relates she has an appointment. Thank you for the opportunity participate in the care of your patient. Nallely Alas DPM 09/22/2024 10:25 AM * Day Cardenas APRN - KYREE - 09/21/2024 11:36 AM ESTAssociated Order(s): IP CONSULT TO GERIATRICS Images from the original note were not included. [facility] Geriatric Medicine Inpatient Consult Service Admission Date: 09/18/2024 Admission Status: INPATIENT Chief Complaint: high blood sugars and UTI Reason for Appointment Geriatrics consulted for ?Dementia Assessment & Plan Principal Problem: Uncontrolled type 2 diabetes mellitus with hyperglycemia (HCC) Cognitive deficits --MMSE 27/30 Clock 2 --+ history of cognitive decline at home. + history of decline in IADL's --TSH check - WNL , B12 check - 332 --Head imaging - none available. --History concerning for baseline cognitive impairment. Suspect vascular component given risk factors. Uncontrolled DM can contribute to cognitive changes. --Recommend outpatient [facility] at [facility] formore in depth cognitive evaluation when in usual state of health. Discussed with sons and added to discharge. --Family interested in increasing services at home including assistance with medications. Case Management notified. Daughter local and plans to help as well. --Recommend avoiding anticholinergic medications. Takes Oxybutynin at home. Consider stopping. Debility --contributing factors include acute illness, neuropathy, likely arthritis --uses walker at baseline --Recommend PT and OT evaluation --Family interested in [facility] and increased services --check Vit D Neuropathy --Gabapentin 300mg BID --Unclear if taking correctly at home. Continue current dose at this time. At risk for delirium --Risk factors: advanced age, sensory impairments, acute illness, and baseline cognitive deficits --Encourage PO intake, time up in chair, family visits, supervised ambulation, and sleep hygiene --If agitated, assess for and consider treating for pain --QTc= no EKG available --No antipsychotic unless patient is danger to self/others/treatment --Start PRN melatonin at HS --Monitor for constipation/urinary retention - last BM 09/19 --Possible medication contributions: none I spent total time of 70 minutes face to face with the patient and/or family discussing the diagnosis and importance of compliance with the treatment plan as well as documenting on the day of the visit. In addition, that total time includes the following: -Reviewing previous notes, -Reviewing labs, -Obtaining and/or reviewing separately obtained history, -Ordering prescription medications, tests and procedures, -Communicating results to the patient/family/caregiver, - Counseling/educating the patient/family/caregiver, -Documenting clinical information in the patients electronic record, and -Performing a medically appropriate exam and/or evaluation Subjective: HPI 84 y.o. year-old female with PMH of DM, HTN, HLD, Hypothyroidism, atrial fibrillation, neuropathy, chronic food wound presented to [facility] on 09/18/24 with complaints of high blood sugar. She was just seenin ER 09/18 with hyperglycemia. PO meds adjusted and sent home. Patient had refused admission. Admitted this time with uncontrolled DM with hyperglycemia, hyperkalemia, ?UTI. Endocrinology consulted. She is new to [facility] and did not have PCP yet. Nursing Delirium Screen (Nu-Desc): Nursing Delirium Symptom Checklist Total Score: 0 Conversation with patient: Patient states she feels well. States she has had some confusion due to high blood sugars and infection. States she was independent at home. Recently moved from [place]. She lived there for 50 years. She is now closer to family. Lives in a condo. 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 Conversation with caregiver: sons Hi and Dami at bedside . son Hi is HCPOA Report cognitive decline over past 8 months or so. Gets words mixed up, trouble finishing a sentence. Gradual decline. They feel she is actually better now then she has been. They are interested in Dementia evaluation. Would like increased services at home. Unclear if taking meds correctly at home. Feel she wasn't managing DM well for some time. She has an unmarked pill box she was using. They found pills on the floor in her home. Having loose stools for some time, having some accidents and family had to clean the home. Advance Care Planning Healthcare Power of Manager Functional: Yes, Hi [place] Financial Power of Manager Functional: Yes, Hi Nelson Code Status: Full Code No Known Allergies Current Facility-Administered Medications: acetaminophen (Tylenol) tablet 650 mg, 650 mg, Oral, q6h PRN OR acetaminophen (Tylenol) suppository 650 mg, 650 mg, Rectal, q6h PRN, Fish Montes MD amLODIPine (Norvasc) tablet 5 mg, 5 mg, Oral, Daily, Fish Montes MD, 5 mg at 09/21/24 0858 apixaban (Eliquis) tablet 5 mg, 5 mg, Oral, BID, Fish Montes MD, 5 mg at 09/21/24 08 atenolol (Tenormin) tablet 50 mg, 50 mg, Oral, Daily, Fish Montes MD, 50 mg at 09/21/24 08 atorvastatin (Lipitor) tablet 40 mg, 40 mg, Oral, Daily, Fish Montes MD, 40 mg at 09/21/24 0858 dextrose 5 % infusion, 100 mL/hr, IntraVENous, PRN, Fish Montes MD dextrose 50 % solution 12.5 g, 12.5 g, IntraVENous, PRN, Fish Montes MD fenofibrate (Triglide) tablet 160 mg, 160 mg, Oral, Daily, Fish Montes MD, 160 mg at 09/21/24 08 gabapentin (Neurontin) capsule 300 mg, 300 mg, Oral, BID, Fish Montes MD, 300 mg at 09/21/24 0858 glucagon (human recombinant) injection 1 mg, 1 mg, IntraMUSCular, PRN, Fish Montes MD glucose oral gel 15 g, 15 g, Oral, PRN, Fish Montes MD insulin glargine (Lantus) injection 24 Units, 24 Units, SubCUTAneous, Nightly, Priscila Laguerre, 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 - NUCLEAR PLANT INSTRUMENT TECHNICIAN Insulin Lispro (Humalog) injection 0-12 Units, 0-12 Units, SubCUTAneous, TID WC, 6 Units at 09/21/24 1159 AND [DISCONTINUED] Insulin Lispro (Humalog) injection 0-12 Units, 0-12 Units, SubCUTAneous, Nightly, Fish Montes MD, 4 Units at 09/19/24 2137 Insulin Lispro (Humalog) injection 10 Units, 10 Units, SubCUTAneous, TID WC, Priscila Laguerre, 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 - NUCLEAR PLANT INSTRUMENT TECHNICIAN, 10 Units at 09/21/24 1159 levothyroxine (Synthroid, Levoxyl) tablet 112 mcg, 112 mcg, Oral, qAM AC, Fish Montes MD, 112 mcg at 09/21/24 0626 lisinopril tablet 20 mg, 20 mg, Oral, Daily, Fish Montes MD, 20 mg at 09/21/24 0858 melatonin tablet 3 mg, 3 mg, Oral, Nightly PRN, Day Cardenas, ALEJANDRINA - NUCLEAR PLANT INSTRUMENT TECHNICIAN ondansetron ODT (Zofran-ODT) disintegrating tablet 4 mg, 4 mg, Oral, q8h PRN OR ondansetron (Zofran) injection 4 mg, 4 mg, IntraVENous, q6h PRN, Fish Montes MD polyethylene glycol (PEG) 3350 (Miralax) packet 17 g, 17 g, Oral, Daily PRN, Fish Montes MD trospium (Sanctura) tablet 20 mg, 20 mg, Oral, BID AC, Fish Montes MD, 20 mg at 09/21/24 0858 Past Medical History: Diagnosis Date Atrial fibrillation (HCC) Diabetes mellitus (HCC) Hyperlipidemia Hypertension Hypothyroidism Neuropathy Past Surgical History: Procedure Laterality Date BACK SURGERY CHOLECYSTECTOMY Social History Tobacco Use Smoking status: Former Current packs/day: 0.00 Types: Cigarettes Quit date: 1964 Years since quittin.1 Smokeless tobacco: Never Substance Use Topics Alcohol use: Not Currently Social History Social History Narrative Not on file Family History No family history on file. No family status information on file. Review of Systems Constitutional: Negative for fatigue and fever. HENT: Negative for congestion. Respiratory: Negative for cough and shortness of breath. Cardiovascular: Negative for chest pain and leg swelling. Gastrointestinal: Positive for diarrhea (histor of loose stools per family). Negative for abdominalpain, constipation and nausea. Genitourinary: Negative for difficulty urinating. Musculoskeletal: Positive for gait problem. Negative for arthralgias. Neurological: Negative for dizziness and tremors. Psychiatric/Behavioral: Positive for confusion. Negative for dysphoric mood and sleep disturbance. The patient is not nervous/anxious. Functional Status Prior to Admission: (I: Independent, A: Assisted, D: Dependent) ADLs I A D Notes Bathing [x] [] [] Dressing [x] [] [] Toileting [x] [] [] Transfers [x] [] [] Feeding [x] [] [] Ambulation [x] [] [] Assistive devices: walker IADLs I A D Telephone [x] [] [] Transportation [] [] [x] Shopping [] [] [x] Meal prep [x] [] [] Housework [x] [] [] Medications [x] [] [] Finances [] [] [] Objective: BP 124/83 (BP Location: Left arm, Patient Position: Sitting) Pulse 87 Temp 36.4 C (97.5 F) (Temporal) Resp 20 Ht 5' 10" (1.778 m) SpO2 100% BMI 28.70 kg/m No intake or output data in the 24 hours ending 09/21/24 1538 Wt Readings from Last 3 Encounters: 09/17/24 200 lb (90.7 kg) Physical Exam Vitals reviewed. HENT: Head: Normocephalic and atraumatic. Eyes: Extraocular Movements: Extraocular movements intact. Cardiovascular: Rate and Rhythm: Normal rate and regular rhythm. Pulmonary: Effort: Pulmonary effort is normal. No respiratory distress. Breath sounds: Normal breath sounds. Abdominal: General: Bowel sounds are normal. There is no distension. Palpations: Abdomen is soft. Tenderness: There is no abdominal tenderness. Musculoskeletal: Right lower leg: No edema. Left lower leg: No edema. Skin: Comments: Foot wrapped Neurological: Mental Status: She is alert. She is disoriented. Comments: Oriented to person, place, month, year, not date. Psychiatric: Mood and Affect: Mood normal. Cognition and Memory: Cognition is impaired. Memory is impaired. Mini-mental status exam: Orientation: 04/21 Registration: 10/12 Attention and Calculation: 12/14 Recall: 09/14 Namin/2 Repetition: 08/12 Three staged command: 2/3 Readin/1 Writin/1 Copyin/1 Clock Drawing Test: Correct Elements (1 pt each): Numbers 1-12 only included and Numbers are drawn inside the clock [place] Total Score 09/18 Time Instructions: Ten past eleven Scores < 5 out of 7 correlate with significantly more driving errors [employer] 2005; 20:240-244 Labs and Imaging: Recent Results (from the past 24 hours) POCT glucose meter Collection Time: 09/20/24 5:14 PM Result Value Ref Range Glucose 168 (H) 70 - 100 mg/dL POCT glucose meter Collection Time: 09/20/24 8:43 PM Result Value Ref Range Glucose 155 (H) 70 - 100 mg/dL CBC auto differential Collection Time: 09/21/24 12:58 AM Result Value Ref Range Auto WBC 7.8 3.6 - 10.7 10*3/uL RBC 3.80 3.80 - 5.20 10*6/uL Hemoglobin 11.7 11.7 - 16.0 g/dL Hematocrit 36.5 35.0 - 47.0 % MCV 96.1 77.0 - 99.0 fL MCH 30.8 26.0 - 34.0 pg MCHC 32.1 30.5 - 36.0 % RDW 13.3 11.5 - 15.0 % Platelets 222 140 - 440 10*3/uL MPV 11.3 9.0 - 12.7 fL nRBC 0.0 0.0 - 2.0 /100 WBCs Neutrophils Relative 64.3 38.0 - 82.0 % Lymphocytes Relative 21.6 15.0 - 45.0 % Monocytes Relative 10.2 5.0 - 13.0 % Eosinophils Relative 2.9 0.0 - 6.0 % Basophils Relative 0.5 0.0 - 2.0 % Immature Grans % 0.5 0.0 - 2.0 % Neutrophils Absolute 5.0 1.8 - 7.5 10*3/uL Lymphocytes Absolute 1.7 1.0 - 4.3 10*3/uL Monocytes Absolute 0.8 0.0 - 0.9 10*3/uL Eosinophils Absolute 0.2 0.0 - 0.5 10*3/uL Basophils Absolute 0.0 0.0 - 0.2 10*3/uL Immature Grans Absolute 0.0 <0.1 10*3/uL Basic metabolic panel Collection Time: 09/21/24 12:58 AM Result Value Ref Range SODIUM 136 136 - 145 mmol/L POTASSIUM 4.3 3.5 - 5.1 mmol/L CHLORIDE 108 (H) 98 - 107 mmol/L CARBON DIOXIDE 19 (L) 23 - 31 mmol/L UREA NITROGEN 29 (H) 9 - 23 mg/dL CREATININE 1.04 0.57 - 1.11 mg/dL GLUCOSE 265 (H) 82 - 115 mg/dL CALCIUM 8.6 (L) 8.8 - 10.0 mg/dL ANION GAP 9 3 - 13 mmol/L eGFR 52.8 (L) >60.0 mL/min/1.73m*2 Vitamin B12 Collection Time: 09/21/24 12:58 AM Result Value Ref Range VITAMIN B12 332 213 - 816 pg/mL TSH Collection Time: 09/21/24 12:58 AM Result Value Ref Range THYROID STIMULATING HORMONE 3.34 0.35 - 4.94 uIU/mL POCT glucose meter Collection Time: 09/21/24 7:23 AM Result Value Ref Range Glucose 265 (H) 70 - 100 mg/dL POCT glucose meter Collection Time: 09/21/24 11:19 AM Result Value Ref Range Glucose 261 (H) 70 - 100 mg/dL Lab Results Component Value Date TSH 3.34 09/21/2024 No components found for: "B12" No results found for: "VITD25" Reviewed: active problem list, medication list, allergies, family history, social history, notes from last encounter, notes from last several encounters, lab results, imaging Follow-up: will follow with you ALEJANDRINA Esteban CNP 09/21/24 3:38 PM * ALEJANDRINA Manzano CNP - 09/21/2024 9:28 AM EST Images from the original note were not included. [facility] Wound Care CONSULT Note Hanna Nelson AGE: 84 y.o. GENDER: female : 1940 Subjective: HISTORY of PRESENT ILLNESS HPI Hanna Nelson is a 84 y.o. female who presents for a wound consult. HPI: Hanna is a 84 y.o. who presents to the emergency department with chief complaint of hyperglycemia. Patient is a type II diabetic, not on insulin. Recently moved to this area and has not yet establish care with a PCP. Wound Care consulted for "Diabetic Ulcer" PAST MEDICAL HISTORY Past Medical History: Diagnosis Date Atrial fibrillation (HCC) Diabetes mellitus (HCC) Hyperlipidemia Hypertension Hypothyroidism Neuropathy PAST SURGICAL HISTORY Past Surgical History: Procedure Laterality Date BACK SURGERY CHOLECYSTECTOMY FAMILY HISTORY No family history on file. SOCIAL HISTORY Social History Tobacco Use Smoking status: Former Current packs/day: 0.00 Types: Cigarettes Quit date: 1964 Years since quittin.1 Smokeless tobacco: Never Vaping Use Vaping status: Never Used Substance Use Topics Alcohol use: Not Currently Drug use: Never ALLERGIES No Known Allergies MEDICATIONS No current facility-administered medications on file prior to encounter. Current Outpatient Medications on File Prior to Encounter Medication Sig Dispense Refill amLODIPine (Norvasc) 5 MG tablet Take by mouth daily. apixaban (Eliquis) 5 MG tablet Take 5 mg by mouth 2 times daily. atenolol (Tenormin) 50 MG tablet Take by mouth daily. atorvastatin (Lipitor) 40 MG tablet Take 40 mg by mouth daily. fenofibrate (Triglide) 160 MG tablet Take 160 mg by mouth daily. gabapentin (Neurontin) 300 MG capsule Take 300 mg by mouth 2 times daily. glimepiride (Amaryl) 4 MG tablet Take 4 mg by mouth every morning (before breakfast). glucose blood test strip Use as instructed 100 each 0 levothyroxine (Tirosint) 112 MCG capsule Take by mouth every morning (before breakfast). lisinopril 20 MG tablet Take by mouth daily. metFORMIN (Glucophage) 500 MG tablet Take 1 tablet (500 mg) by mouth 2 times daily (with meals). 60tablet 1 oxybutynin (Ditropan) 5 MG tablet Take by mouth. [DISCONTINUED] metFORMIN (Glucophage) 500 MG tablet Take by mouth. REVIEW OF SYSTEMS Pertinent items are noted in HPI. Objective: BP 124/83 (BP Location: Left arm, Patient Position: Sitting) Pulse 87 Temp 36.4 C (97.5 F) (Temporal) Resp 20 Ht 5' 10" (1.778 m) SpO2 100% BMI 28.70 kg/m PHYSICAL EXAM General appearance: in no apparent distress, well developed and well nourished, in no respiratory distress and acyanotic, alert, and oriented times 3 Skin: warm and dry Pulmonary: Normal effort, no respiratory distress, no cyanosis Left 2nd toe: 6u5xORU cm. Wound bed with stained callus noted. No drainage present. Linda skin is dry and fragile. 09/21/24 Left heel: No open areas or drainage noted. Small callus present and peeling skin to linda wound, fragile. Right plantar foot: 1.2x1x0.6cm. Wound bed with red tissue present post debridment. Small serosang drainage noted. Linda wound with thick callus, fragile. 09/21/24 Debridement:Excisional Debridement Using curette the wound(s)/ulcer(s) was/were sharply debrided down through and including the removal of epidermis, dermis, subcutaneous tissue, and muscle/fascia. Devitalized Tissue Debrided: fibrin, slough, necrotic/eschar, exudate, and callus Pre Debridement Measurements: Are located in the Wound/Ulcer Documentation Flow Sheet Wound/Ulcer #: {1 Post Debridement Measurements: Wound/Ulcer Descriptions are listed under Physical Exam above. Wound/Ulcer Descriptions are Pre Debridement except measurements Percent of Wound/Ulcer Debrided: 100% Total Surface Area Debrided: 1.2 sq cm Bleeding: Minimal Hemostasis Achieved: by pressure Procedural Pain: 0 / 10 Post Procedural Pain: 0 / 10 Response to treatment: tolerated well LABS CBC: Lab Results Component Value Date WBC 7.8 09/21/2024 HGB 11.7 09/21/2024 HGB 14.6 09/18/2024 HCT 36.5 09/21/2024 MCV 96.1 09/21/2024 PLT 222 09/21/2024 BMP: Lab Results Component Value Date NA 136 09/21/2024 K 4.3 09/21/2024 CL 108 (H) 09/21/2024 CO2 19 (L) 09/21/2024 BUN 29 (H) 09/21/2024 CREATININE 1.04 09/21/2024 PT/INR: No results found for: "PROTIME", "INR" Prealbumin: No results found for: "PREALBUMIN" Albumin:No components found for: "LABALBU" Sed Rate:No results found for: "SEDRATE" Micro: No components found for: "BC" Assessment/Plan: Left 2nd toe: DFU (Unknown) -cleanse with NS, apply Betadine and allow to dry, leave RASHIDA daily and PRN Left Heel: Callus -cleanse with NS, apply Betadine and allow to dry, leave RASHIDA daily and PRN Right Plantar foot: DFU (Muscle) -cleanse with NS, lightly pack with Mesalt, cover with dry clean dressing daily and PRN Podiatry consulted Nutritional support Wound Care to follow Recommend to follow up at [facility] Outpatient wound care center after hospital discharge. Any questions or concerns please secure chat "[facility] wound/ostomy". Thank you for the consult! I personally obtained the larsen and critical portions of the history and physical exam. I reviewed the labs, imaging studies, and electronic medical record. I reviewed the chart documentation and discussed the patient with treatment team members. I have edited the note to reflect my clinical findingsand my assessment and plan. Please note, the time of this note does not reflect the time I saw thispatient today, but the time of this documentaton. Portions of this note including HPI, ROS, impression/plan, and examination may have been copied forward from admission to today as to provide important historical information essential in contributing to medical decision making. Documentation has been reviewed and edited as necessary to support clinical decision making for today's visit and to reflect my own independent evaluation of this patient. Decision making for today's visit and to reflectmy own independent evaluation of this patient. Cosigned by Hi Mckeon DO at 09/21/2024 4:44 PM EST * ALEJANDRINA Urias CNP - 09/21/2024 8:15 AM ESTAssociated Order(s): IP CONSULT TO ENDOCRINOLOGY Department of Internal Medicine Division of Endocrinology, Diabetes, & Metabolism Endocrinology Note Patient Name: Hanna Nelson : 1940 AGE: 84 y.o. [facility] Ad[facility] Date: 09/18/2024 Visit Date: 09/21/2024 Reason for Endocrine Consult: DM Ty2 uncontrolled hyperglycemia Provider/Team Requesting Consult: Dr. Montes PCP: No primary care provider on file. Outpt Tactical [employer] Control Party Manager: No ASSESSMENT: Uncontrolled Hyperglycemia Hyperkalemia PLAN: Increase Lantus 24 units Continue Humalog to 10 units TID with meals Continue Humalog medium dose sliding scale TID with meals Insulin pen ordered for insulin pen practice while inpatient. Discussed need for insulin for discharge - Patient agreeable Discussed insulin pen insulin administration, glucometer and CGM use. 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 Nursing communication order for insulin pen demonstration and patient return demonstration with patient giving insulin for practice before discharge. Levothyroxine 112 mcg daily ICU goal <180 GMF goal <150 POCT BG ACHS Hypoglycemia management per protocol Carb controlled diet ANTICIPATED ENDOCRINE HOME GOING RECOMMENDATIONS: Optimized for Discharge from Endocrine standpoint: No Home Going Endocrine Rx Recommendations-- Metformin 500 mg BID with meals Stop Glimepiride Start Tradjenta 5 mg daily Start Lantus - Current dose on day of discharge. Patient will need Tradjenta, Lantus Pen, Insulin pen needles, Glucometer, test strips, lancets, alcohol pads for discharge. [place] [facility] SUBJECTIVE/HPI: CHIEF COMPLAINT: Chief Complaint Patient presents with Hyperglycemia Pt comes in today after being seen at [facility] yesterday for high sugar above 600 pt states she was able to get under 400 and was sent home yesterday but now pt states her sugar is high again and wont read on the monitor. Pt is alert and oriented but seems lethargic pts bgl is 535 Hanna is a 84 y.o. female with significant past medical history of tmf-[id number]-icukhgzoz diabetesmellitus, hypertension, hyperlipidemia, hypothyroidism, atrial fibrillation on Eliquis and neuropathy. Was brought to the emergency room due to uncontrolled blood sugars, patient was in the ER yesterdayand she was qualifying for DKA lytes protocol but patient refused admission and left the hospital. Today patient returned again due to uncontrolled blood sugars also noticed increased frequency of urination and extremely thirsty, no signs of confusion patient is alert and oriented x 3, denies any fever chills or rigors, denies any abdominal pain nausea or vomitings. Workup in the emergency room again showed blood sugars 548, hydroxybutyrate within normal limits, pH normal. 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 Patient has not set up primary care or had previous endocrinology team in the past. Reports she does not check blood sugars and with move, blood sugars probably got out of hand recently. Reports she has never given injections to herself. Agreeable to insulin for home going. Son has Javier and would like patient to have javier for monitoring blood sugars. [employer] smart phone at bedside. - Will plan to start patient on CGM before discharge. Type of DM: 2 Onset of DM: at age 49. Home DM Medication Regimen: Glimepiride 4 mg daily with breakfast Metformin 500 mg BID with meals DM control (last A1c/glucose data): Lab Results Component Value Date HGBA1C 12.2 (H) 09/20/2024 Glucose Date/Time Value Ref Range Status 09/21/2024 07:23 AM 265 (H) 70 - 100 mg/dL Final 09/20/2024 08:43 PM 155 (H) 70 - 100 mg/dL Final 09/20/2024 05:14 PM 168 (H) 70 - 100 mg/dL Final 09/20/2024 12:15 PM 266 (H) 70 - 100 mg/dL Final 09/20/2024 09:05 AM 251 (H) 70 - 100 mg/dL Final 09/19/2024 09:15 PM 210 (H) 70 - 100 mg/dL Final Review of Systems Constitutional: Negative for fatigue. Respiratory: Negative for shortness of breath. Cardiovascular: Negative for chest pain and palpitations. Gastrointestinal: Negative for abdominal pain, constipation, diarrhea, nausea and vomiting. Endocrine: Positive for polydipsia and polyuria. Neurological: Negative for weakness. Psychiatric/Behavioral: Negative for sleep disturbance. ROS negative except for those mentioned in HPI. OBJECTIVE: Vitals: 09/19/24 2117 09/20/24 0909 09/20/24 2042 09/21/24 0723 BP: 136/62 158/77 110/68 124/83 BP Location: Left arm Left arm Left arm Patient Position: Lying Lying Sitting Pulse: 64 57 73 87 Resp: 17 18 20 Temp: 36.3 C (97.4 F) 36.4 C (97.5 F) TempSrc: Temporal Temporal SpO2: 97% 100% 100% 100% Height: Physical Exam Vitals and nursing note reviewed. HENT: Head: Normocephalic. Nose: Nose normal. Eyes: Conjunctiva/sclera: Conjunctivae normal. Pulmonary: Effort: Pulmonary effort is normal. No respiratory distress. Musculoskeletal: General: No swelling. Neurological: Mental Status: She is alert. Psychiatric: Mood and Affect: Mood normal. Behavior: Behavior normal. 24 hour intake/output:No intake or output data in the 24 hours ending 09/21/24 0815 Diet: Adult diet Regular; 5 carb choices (75 gm/meal) Medications (as per EMR): HomeMeds: Current Outpatient Medications Medication Instructions amLODIPine (Norvasc) 5 MG tablet Oral, Daily apixaban (ELIQUIS) 5 mg, Oral, 2 times daily atenolol (Tenormin) 50 MG tablet Oral, Daily atorvastatin (LIPITOR) 40 mg, Oral, Daily fenofibrate (TRIGLIDE) 160 mg, Oral, Daily gabapentin (NEURONTIN) 300 mg, Oral, 2 times daily glimepiride (AMARYL) 4 mg, Oral, Daily before breakfast glucose blood test strip Use as instructed levothyroxine (Tirosint) 112 MCG capsule Oral, Daily before breakfast lisinopril 20 MG tablet Oral, Daily metFORMIN (GLUCOPHAGE) 500 mg, Oral, 2 times daily with meals oxybutynin (Ditropan) 5 MG tablet Oral Scheduled Meds:amLODIPine, 5 mg, Oral, Daily apixaban, 5 mg, Oral, BID atenolol, 50 mg, Oral, Daily atorvastatin, 40 mg, Oral, Daily cefTRIAXone, 1,000 mg, IntraVENous, q24h fenofibrate, 160 mg, Oral, Daily gabapentin, 300 mg, Oral, BID insulin glargine, 20 Units, SubCUTAneous, Nightly insulin lispro, 0-12 Units, SubCUTAneous, TID WC And insulin lispro, 0-12 Units, SubCUTAneous, Nightly insulin lispro, 8 Units, SubCUTAneous, TID WC levothyroxine, 112 mcg, Oral, qAM AC lisinopril, 20 mg, Oral, Daily trospium, 20 mg, Oral, BID AC Continuous Infusions:sodium chloride, 75 mL/hr, Last Rate: 75 mL/hr (09/20/24 1000) PRN Meds:PRN medications: acetaminophen OR acetaminophen, dextrose, dextrose, glucagon (rDNA), glucose, ondansetron ODT OR ondansetron, polyethylene glycol (PEG) 3350 Diagnostic Workup: I reviewed pertinent Laboratory results, Radiographic results, and Other Clinical Notes at the timeof today's encounter. Labs: No components found for: "LABA1C" No components found for: "EAG" Lab Results Component Value Date NA 136 09/21/2024 K 4.3 09/21/2024 CL 108 (H) 09/21/2024 CO2 19 (L) 09/21/2024 BUN 29 (H) 09/21/2024 CREATININE 1.04 09/21/2024 GLUCOSE 265 (H) 09/21/2024 CALCIUM 8.6 (L) 09/21/2024 No results found for: "CHLPL", "CHOL" No results found for: "TRIG" No results found for: "HDL" No results found for: "LDLCALC" No results found for: "VLDL" No results found for: "CHOLHDLRATIO" No results found for: "YVBL29LZU" No results found for: "TSH", "F3GVUQM", "I8WGSQV", "THYROIDAB" Radiology reportsas per the Radiologist Radiology: POCT glucose meter Result Date: 09/19/2024 Performed by: [facility], [address] [place] [address] CLIA ID: [id number] POCT glucose meter Result Date: 09/19/2024 Performed by: [facility], [address] [place] [id number] CLIA ID: [id number] POCT glucose meter Result Date: 09/19/2024 Performed by: [facility], [address] [place] [address] CLIA ID: [id number] POCT glucose meter Result Date: 09/19/2024 Performed by: [facility], [address] [place] [address] CLIA ID: [id number] POCT glucose meter Result Date: 09/19/2024 [facility]: [facility], [address] [place] [id number] CLIA ID: [id number] POCT glucose meter Result Date: 09/19/2024 [facility]: [facility], [address] [place] [address] CLIA ID: [id number] POCT glucose meter Result Date: 09/18/2024 [facility]: [facility], [address] [place] [id number] CLIA ID: [id number] POCT glucose meter Result Date: 09/18/2024 [facility]: [facility], [address] [place] [address] CLIA ID: [id number] POCT glucose meter Result Date: 09/18/2024 [facility]formed by: [facility], [address] [place] [address] CLIA ID: [id number] POCT glucose meter Result Date: 09/18/2024 [facility]: [facility], [address] [place] [id number] CLIA ID: [id number] POCT glucose meter Result Date: 09/18/2024 [facility]: [facility], [address] [place] [address] CLIA ID: [id number] POCT glucose meter Result Date: 09/18/2024 Performed by: [facility], [address] [place] [address] CLIA ID: [id number] History/Other: Past Medical History: Past Medical History: Diagnosis Date Atrial fibrillation (HCC) Diabetes mellitus (HCC) Hyperlipidemia Hypertension Hypothyroidism Neuropathy Past Surgical History: Past Surgical History: Procedure Laterality Date BACK SURGERY CHOLECYSTECTOMY Allergy(ies): No Known Allergies Family History: No family history on file. Social History: Social History Tobacco Use Smoking status: Former Current packs/day: 0.00 Types: Cigarettes Quit date: 1964 Years since quittin.1 Smokeless tobacco: Never Vaping Use Vaping status: Never Used Substance Use Topics Alcohol use: Not Currently Drug use: Never Portions of the information within this encounter were entered using an electronic dictation system. Best attempts were made to edit/proofread the information prior to note completion. Despite the review of information, some errors may remain. If there are questions related to the information contained within the note please contact the signing physician directly. I spent 75 minutes with the pt which involved coordination of care, medical evaluation, review of records, and/or counseling of the pt regarding his/her condition/disease state/prognosis on the date of this note. Cosigned by Demetrio Shahid MD at 09/22/2024 1:10 PM EST documented in this [facility]02-11-2025 Plan of care note* Care Plan - Marietta Dailey RN - 09/22/2024 4:59 AM EST Problem: Problem Interventions Goal: Assess Nutritional Intake 09/22/2024458 by Marietta Dailey RN Outcome: Progressing 09/22/2024 034 by Marietta Dailey RN Outcome: Progressing Goal: Promote nutritional intake 09/22/2024 0459 by Marietta Dailey RN Outcome: Progressing 09/22/2024 0349 by Marietta Dailey RN Outcome: Progressing [id number] NoteProblem: Problem Interventions Goal: Assess Nutritional Intake Outcome: Progressing Goal: Promote nutritional intake [facility] of care note* Care Plan - Marietta Dailey RN - 09/22/2024 3:49 AM EST Problem: Problem Interventions Goal: Assess Nutritional Intake Outcome: Progressing Goal: Promote nutritional intake Outcome: Progressing [facility]02-10-2025 Telephone encounter Note* Telephone Encounter - ALEJANDRINA Urias CNP - 09/21/2024 5:59 PM EST Can we see if patient would qualify for Javier 3 Plus. Patient is on Medicare and starting insulin 1injection daily. Thanks! [facility]02-10-2025 Note* Home Care - Bella Meléndez RN - 09/21/2024 1:33 PM EST Communication Professor following case for Discharge Needs. Spoke to patient and 2 sons at bedside in the room. Introduced myself and reason for visit. Explained home care services, requirements for home care. And answered questions. Pt does not currently have PCP. Pt recently moved to [facility] and hasn't established with new PCP as of yet. Pt states she has anappt. In October. Son's asking if appt could be moved up? I informed son's/pt, I would let the TCC know and she or SW would follow up with them. No other needs voiced. PACC signing off. [facility]02-10-2025 Note* Home Care - Bella Meléndez RN - 09/21/2024 1:33 PM EST Communication Professor following case for Discharge Needs. Spoke to patient and 2 sons at bedside in the room. Introduced myself and reason for visit. Explained home care services, requirements for home care. And answered questions. Pt does not currently have PCP. Pt recently moved to [facility] and hasn't established with new PCP as of yet. Pt states she has anappt. In October. Son's asking if appt could be moved up? I informed son's/pt, I would let the TCC know and she or SW would follow up with them. No other needs voiced. PACC signing off. [id number] Consult note* Day Cardenas, 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 - NUCLEAR PLANT INSTRUMENT TECHNICIAN - 09/21/2024 11:36 AM ESTAssociated Order(s): IP CONSULT TO GERIATRICS Images from the original note were not included. [facility] Inpatient Consult Service Admission Date: 09/18/2024 Admission Status: INPATIENT Chief Complaint: high blood sugars and UTI Reason for Appointment Geriatrics consulted for ?Dementia Assessment & Plan Principal Problem: Uncontrolled type 2 diabetes mellitus with hyperglycemia (HCC) Cognitive deficits --MMSE 27/30 Clock 2 --+ history of cognitive decline at home. + history of decline in IADL's --TSH check - WNL , B12 check - 332 --Head imaging - none available. --History concerning for baseline cognitive impairment. Suspect vascular component given risk factors. Uncontrolled DM can contribute to cognitive changes. --Recommend outpatient follow up at [facility] formore in depth cognitive evaluation when in usual state of health. Discussed with sons and added to discharge. --Family interested in increasing services at home including assistance with medications. Case Management notified. Daughter local and plans to help as well. --Recommend avoiding anticholinergic medications. Takes Oxybutynin at home. Consider stopping. Debility --contributing factors include acute illness, neuropathy, likely arthritis --uses walker at baseline --Recommend PT and OT evaluation --Family interested in [facility] and increased services --check Vit D Neuropathy --Gabapentin 300mg BID --Unclear if taking correctly at home. Continue current dose at this time. At risk for delirium --Risk factors: advanced age, sensory impairments, acute illness, and baseline cognitive deficits --Encourage PO intake, time up in chair, family visits, supervised ambulation, and sleep hygiene --If agitated, assess for and consider treating for pain --QTc= no EKG available --No antipsychotic unless patient is danger to self/others/treatment --Start PRN melatonin at HS --Monitor for constipation/urinary retention - last BM 09/19 --Possible medication contributions: none I spent total time of 70 minutes face to face with the patient and/or family discussing the diagnosis and importance of compliance with the treatment plan as well as documenting on the day of the visit. In addition, that total time includes the following: -Reviewing previous notes, -Reviewing labs, -Obtaining and/or reviewing separately obtained history, -Ordering prescription medications, tests and procedures, -Communicating results to the patient/family/caregiver, - Counseling/educating the patient/family/caregiver, -Documenting clinical information in the patients electronic record, and -Performing a medically appropriate exam and/or evaluation Subjective: HPI 84 y.o. year-old female with PMH of DM, HTN, HLD, Hypothyroidism, atrial fibrillation, neuropathy, chronic food wound presented to [facility] on 09/18/24 with complaints of high blood sugar. She was just seenin ER 09/18 with hyperglycemia. PO meds adjusted and sent home. Patient had refused admission. Admitted this time with uncontrolled DM with hyperglycemia, hyperkalemia, ?UTI. Endocrinology consulted. She is new to [facility] and did not have PCP yet. Nursing Delirium Screen (Nu-Desc): Nursing Delirium Symptom Checklist Total Score: 0 Conversation with patient: Patient states she feels well. States she has had some confusion due to high blood sugars and infection. States she was independent at home. Recently moved from [place]. She lived there for 50 years. She is now closer to family. Lives in a condo. 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 Conversation with caregiver: sons Hi and Dami at bedside . son Hi is HCPOA Report cognitive decline over past 8 months or so. Gets words mixed up, trouble finishing a sentence. Gradual decline. They feel she is actually better now then she has been. They are interested in Dementia evaluation. Would like increased services at home. Unclear if taking meds correctly at home. Feel she wasn't managing DM well for some time. She has an unmarked pill box she was using. They found pills on the floor in her home. Having loose stools for some time, having some accidents and family had to clean the home. Advance Care Planning Healthcare Power of Manager Functional: Yes, Hi Nelson Financial Power of Manager Functional: Yes, Hi Nelson Code Status: Full Code No Known Allergies Current Facility-Administered Medications: acetaminophen (Tylenol) tablet 650 mg, 650 mg, Oral, q6h PRN OR acetaminophen (Tylenol) suppository 650 mg, 650 mg, Rectal, q6h PRN, Fish Montes MD amLODIPine (Norvasc) tablet 5 mg, 5 mg, Oral, Daily, Fish Montes MD, 5 mg at 09/21/24 0858 apixaban (Eliquis) tablet 5 mg, 5 mg, Oral, BID, Fish Montes MD, 5 mg at 09/21/24 0858 atenolol (Tenormin) tablet 50 mg, 50 mg, Oral, Daily, Fish Montes MD, 50 mg at 09/21/24 08 atorvastatin (Lipitor) tablet 40 mg, 40 mg, Oral, Daily, Fish Montes MD, 40 mg at 09/21/24 0858 dextrose 5 % infusion, 100 mL/hr, IntraVENous, PRN, Fish Montes MD dextrose 50 % solution 12.5 g, 12.5 g, IntraVENous, PRN, Fish Montes MD fenofibrate (Triglide) tablet 160 mg, 160 mg, Oral, Daily, Fish Montes MD, 160 mg at 09/21/24 08 gabapentin (Neurontin) capsule 300 mg, 300 mg, Oral, BID, Fish Montes MD, 300 mg at 09/21/24 0858 glucagon (human recombinant) injection 1 mg, 1 mg, IntraMUSCular, PRN, Fish Montes MD glucose oral gel 15 g, 15 g, Oral, PRN, Fish Montes MD insulin glargine (Lantus) injection 24 Units, 24 Units, SubCUTAneous, Nightly, Priscila Laguerre, 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 - NUCLEAR PLANT INSTRUMENT TECHNICIAN Insulin Lispro (Humalog) injection 0-12 Units, 0-12 Units, SubCUTAneous, TID WC, 6 Units at 09/21/24 1159 AND [DISCONTINUED] Insulin Lispro (Humalog) injection 0-12 Units, 0-12 Units, SubCUTAneous, Nightly, Fish Montes MD, 4 Units at 09/19/24 2137 Insulin Lispro (Humalog) injection 10 Units, 10 Units, SubCUTAneous, TID WC, Priscila Laguerre, 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 - NUCLEAR PLANT INSTRUMENT TECHNICIAN, 10 Units at 09/21/24 1159 levothyroxine (Synthroid, Levoxyl) tablet 112 mcg, 112 mcg, Oral, qAM AC, Fish Montes MD, 112 mcg at 09/21/24 0626 lisinopril tablet 20 mg, 20 mg, Oral, Daily, Fish Montes MD, 20 mg at 09/21/24 0858 melatonin tablet 3 mg, 3 mg, Oral, Nightly PRN, Day Cardenas, 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 - KYREE ondansetron ODT (Zofran-ODT) disintegrating tablet 4 mg, 4 mg, Oral, q8h PRN OR ondansetron (Zofran) injection 4 mg, 4 mg, IntraVENous, q6h PRN, Fish Montes MD polyethylene glycol (PEG) 3350 (Miralax) packet 17 g, 17 g, Oral, Daily PRN, Fish Montes MD trospium (Sanctura) tablet 20 mg, 20 mg, Oral, BID AC, Fish Montes MD, 20 mg at 09/21/24 0858 Past Medical History: Diagnosis Date Atrial fibrillation (HCC) Diabetes mellitus (HCC) Hyperlipidemia Hypertension Hypothyroidism Neuropathy Past Surgical History: Procedure Laterality Date BACK SURGERY CHOLECYSTECTOMY Social History Tobacco Use Smoking status: Former Current packs/day: 0.00 Types: Cigarettes Quit date: 1964 Years since quittin.1 Smokeless tobacco: Never Substance Use Topics Alcohol use: Not Currently Social History Social History Narrative Not on file Family History No family history on file. No family status information on file. Review of Systems Constitutional: Negative for fatigue and fever. HENT: Negative for congestion. Respiratory: Negative for cough and shortness of breath. Cardiovascular: Negative for chest pain and leg swelling. Gastrointestinal: Positive for diarrhea (histor of loose stools per family). Negative for abdominalpain, constipation and nausea. Genitourinary: Negative for difficulty urinating. Musculoskeletal: Positive for gait problem. Negative for arthralgias. Neurological: Negative for dizziness and tremors. Psychiatric/Behavioral: Positive for confusion. Negative for dysphoric mood and sleep disturbance. The patient is not nervous/anxious. Functional Status Prior to Admission: (I: Independent, A: Assisted, D: Dependent) ADLs I A D Notes Bathing [x] [] [] Dressing [x] [] [] Toileting [x] [] [] Transfers [x] [] [] Feeding [x] [] [] Ambulation [x] [] [] Assistive devices: walker IADLs I A D Telephone [x] [] [] Transportation [] [] [x] Shopping [] [] [x] Meal prep [x] [] [] Housework [x] [] [] Medications [x] [] [] Finances [] [] [] Objective: BP 124/83 (BP Location: Left arm, Patient Position: Sitting) Pulse 87 Temp 36.4 C (97.5 F) (Temporal) Resp 20 Ht 5' 10" (1.778 m) SpO2 100% BMI 28.70 kg/m No intake or output data in the 24 hours ending 09/21/24 1538 Wt Readings from Last 3 Encounters: 09/17/24 200 lb (90.7 kg) Physical Exam Vitals reviewed. HENT: Head: Normocephalic and atraumatic. Eyes: Extraocular Movements: Extraocular movements intact. Cardiovascular: Rate and Rhythm: Normal rate and regular rhythm. Pulmonary: Effort: Pulmonary effort is normal. No respiratory distress. Breath sounds: Normal breath sounds. Abdominal: General: Bowel sounds are normal. There is no distension. Palpations: Abdomen is soft. Tenderness: There is no abdominal tenderness. Musculoskeletal: Right lower leg: No edema. Left lower leg: No edema. Skin: Comments: Foot wrapped Neurological: Mental Status: She is alert. She is disoriented. Comments: Oriented to person, place, month, year, not date. Psychiatric: Mood and Affect: Mood normal. Cognition and Memory: Cognition is impaired. Memory is impaired. Mini-mental status exam: Orientation: 04/21 Registration: 10/12 Attention and Calculation: 12/14 Recall: 09/14 Namin/2 Repetition: 08/12 Three staged command: 09/14 Readin/1 Writin/1 Copyin/1 Clock Drawing Test: Correct Elements (1 pt each): Numbers 1-12 only included and Numbers are drawn inside the clock [place] Total Score 2/7 Time Instructions: Ten past eleven Scores < 5 out of 7 correlate with significantly more driving errors J Gen Finish Grinder Med 2005; 20:240-244 Labs and Imaging: Recent Results (from the past 24 hours) POCT glucose meter Collection Time: 09/20/24 5:14 PM Result Value Ref Range Glucose 168 (H) 70 - 100 mg/dL POCT glucose meter Collection Time: 09/20/24 8:43 PM Result Value Ref Range Glucose 155 (H) 70 - 100 mg/dL CBC auto differential Collection Time: 09/21/24 12:58 AM Result Value Ref Range Auto WBC 7.8 3.6 - 10.7 10*3/uL RBC 3.80 3.80 - 5.20 10*6/uL Hemoglobin 11.7 11.7 - 16.0 g/dL Hematocrit 36.5 35.0 - 47.0 % MCV 96.1 77.0 - 99.0 fL MCH 30.8 26.0 - 34.0 pg MCHC 32.1 30.5 - 36.0 % RDW 13.3 11.5 - 15.0 % Platelets 222 140 - 440 10*3/uL MPV 11.3 9.0 - 12.7 fL nRBC 0.0 0.0 - 2.0 /100 WBCs Neutrophils Relative 64.3 38.0 - 82.0 % Lymphocytes Relative 21.6 15.0 - 45.0 % Monocytes Relative 10.2 5.0 - 13.0 % Eosinophils Relative 2.9 0.0 - 6.0 % Basophils Relative 0.5 0.0 - 2.0 % Immature Grans % 0.5 0.0 - 2.0 % Neutrophils Absolute 5.0 1.8 - 7.5 10*3/uL Lymphocytes Absolute 1.7 1.0 - 4.3 10*3/uL Monocytes Absolute 0.8 0.0 - 0.9 10*3/uL Eosinophils Absolute 0.2 0.0 - 0.5 10*3/uL Basophils Absolute 0.0 0.0 - 0.2 10*3/uL Immature Grans Absolute 0.0 <0.1 10*3/uL Basic metabolic panel Collection Time: 09/21/24 12:58 AM Result Value Ref Range SODIUM 136 136 - 145 mmol/L POTASSIUM 4.3 3.5 - 5.1 mmol/L CHLORIDE 108 (H) 98 - 107 mmol/L CARBON DIOXIDE 19 (L) 23 - 31 mmol/L UREA NITROGEN 29 (H) 9 - 23 mg/dL CREATININE 1.04 0.57 - 1.11 mg/dL GLUCOSE 265 (H) 82 - 115 mg/dL CALCIUM 8.6 (L) 8.8 - 10.0 mg/dL ANION GAP 9 3 - 13 mmol/L eGFR 52.8 (L) >60.0 mL/min/1.73m*2 Vitamin B12 Collection Time: 09/21/24 12:58 AM Result Value Ref Range VITAMIN B12 332 213 - 816 pg/mL TSH Collection Time: 09/21/24 12:58 AM Result Value Ref Range THYROID STIMULATING HORMONE 3.34 0.35 - 4.94 uIU/mL POCT glucose meter Collection Time: 09/21/24 7:23 AM Result Value Ref Range Glucose 265 (H) 70 - 100 mg/dL POCT glucose meter Collection Time: 09/21/24 11:19 AM Result Value Ref Range Glucose 261 (H) 70 - 100 mg/dL Lab Results Component Value Date TSH 3.34 09/21/2024 No components found for: "B12" No results found for: "VITD25" Reviewed: active problem list, medication list, allergies, family history, social history, notes from last encounter, notes from last several encounters, lab results, imaging Follow-up: will follow with you ALEJANDRINA Esteban CNP 09/21/24 3:38 PM [id number] Consult note* ALEJANDRINA Manzano CNP - 09/21/2024 9:28 AM EST Images from the original note were not included. [facility] Wound Care CONSULT Note Hanna Nelson AGE: 84 y.o. GENDER: female : 1940 Subjective: HISTORY of PRESENT ILLNESS HPI Hanna Nelson is a 84 y.o. female who presents for a wound consult. HPI: Hanna is a 84 y.o. who presents to the emergency department with chief complaint of hyperglycemia. Patient is a type II diabetic, not on insulin. Recently moved to this area and has not yet establish care with a PCP. Wound Care consulted for "Diabetic Ulcer" PAST MEDICAL HISTORY Past Medical History: Diagnosis Date Atrial fibrillation (HCC) Diabetes mellitus (HCC) Hyperlipidemia Hypertension Hypothyroidism Neuropathy PAST SURGICAL HISTORY Past Surgical History: Procedure Laterality Date BACK SURGERY CHOLECYSTECTOMY FAMILY HISTORY No family history on file. SOCIAL HISTORY Social History Tobacco Use Smoking status: Former Current packs/day: 0.00 Types: Cigarettes Quit date: 1964 Years since quittin.1 Smokeless tobacco: Never Vaping Use Vaping status: Never Used Substance Use Topics Alcohol use: Not Currently Drug use: Never ALLERGIES No Known Allergies MEDICATIONS No current facility-administered medications on file prior to encounter. Current Outpatient Medications on File Prior to Encounter Medication Sig Dispense Refill amLODIPine (Norvasc) 5 MG tablet Take by mouth daily. apixaban (Eliquis) 5 MG tablet Take 5 mg by mouth 2 times daily. atenolol (Tenormin) 50 MG tablet Take by mouth daily. atorvastatin (Lipitor) 40 MG tablet Take 40 mg by mouth daily. fenofibrate (Triglide) 160 MG tablet Take 160 mg by mouth daily. gabapentin (Neurontin) 300 MG capsule Take 300 mg by mouth 2 times daily. glimepiride (Amaryl) 4 MG tablet Take 4 mg by mouth every morning (before breakfast). glucose blood test strip Use as instructed 100 each 0 levothyroxine (Tirosint) 112 MCG capsule Take by mouth every morning (before breakfast). lisinopril 20 MG tablet Take by mouth daily. metFORMIN (Glucophage) 500 MG tablet Take 1 tablet (500 mg) by mouth 2 times daily (with meals). 60tablet 1 oxybutynin (Ditropan) 5 MG tablet Take by mouth. [DISCONTINUED] metFORMIN (Glucophage) 500 MG tablet Take by mouth. REVIEW OF SYSTEMS Pertinent items are noted in HPI. Objective: BP 124/83 (BP Location: Left arm, Patient Position: Sitting) Pulse 87 Temp 36.4 C (97.5 F) (Temporal) Resp 20 Ht 5' 10" (1.778 m) SpO2 100% BMI 28.70 kg/m PHYSICAL EXAM General appearance: in no apparent distress, well developed and well nourished, in no respiratory distress and acyanotic, alert, and oriented times 3 Skin: warm and dry Pulmonary: Normal effort, no respiratory distress, no cyanosis Left 2nd toe: [id number] cm. Wound bed with stained callus noted. No drainage present. Linda skin is dry and fragile. 09/21/24 Left heel: No open areas or drainage noted. Small callus present and peeling skin to linda wound, fragile. Right plantar foot: 1.2x1x0.6cm. Wound bed with red tissue present post debridment. Small serosang drainage noted. Linda wound with thick callus, fragile. 09/21/24 Debridement:Excisional Debridement Using curette the wound(s)/ulcer(s) was/were sharply debrided down through and including the removal of epidermis, dermis, subcutaneous tissue, and muscle/fascia. Devitalized Tissue Debrided: fibrin, slough, necrotic/eschar, exudate, and callus Pre Debridement Measurements: Are located in the Wound/Ulcer Documentation Flow Sheet Wound/Ulcer #: {1 Post Debridement Measurements: Wound/Ulcer Descriptions are listed under Physical Exam above. Wound/Ulcer Descriptions are Pre Debridement except measurements Percent of Wound/Ulcer Debrided: 100% Total Surface Area Debrided: 1.2 sq cm Bleeding: Minimal Hemostasis Achieved: by pressure Procedural Pain: 0 / 10 Post Procedural Pain: 0 / 10 Response to treatment: tolerated well LABS CBC: Lab Results Component Value Date WBC 7.8 09/21/2024 HGB 11.7 09/21/2024 HGB 14.6 09/18/2024 HCT 36.5 09/21/2024 MCV 96.1 09/21/2024 PLT 222 09/21/2024 BMP: Lab Results Component Value Date NA 136 09/21/2024 K 4.3 09/21/2024 CL 108 (H) 09/21/2024 CO2 19 (L) 09/21/2024 BUN 29 (H) 09/21/2024 CREATININE 1.04 09/21/2024 PT/INR: No results found for: "PROTIME", "INR" Prealbumin: No results found for: "PREALBUMIN" Albumin:No components found for: "LABALBU" Sed Rate:No results found for: "SEDRATE" Micro: No components found for: "BC" Assessment/Plan: Left 2nd toe: DFU (Unknown) -cleanse with NS, apply Betadine and allow to dry, leave FAMILY READINESS SUPPORT ASSISTANT daily and PRN Left Heel: Callus -cleanse with NS, apply Betadine and allow to dry, leave RASHIDA daily and PRN Right Plantar foot: DFU (Muscle) -cleanse with NS, lightly pack with Mesalt, cover with dry clean dressing daily and PRN Podiatry consulted Nutritional support Wound Care to follow Recommend to follow up at [facility] wound care center after hospital discharge. Any questions or concerns please secure chat "[facility] wound/ostomy". Thank you for the consult! I personally obtained the larsen and critical portions of the history and physical exam. I reviewed the labs, imaging studies, and electronic medical record. I reviewed the chart documentation and discussed the patient with treatment team members. I have edited the note to reflect my clinical findingsand my assessment and plan. Please note, the time of this note does not reflect the time I saw thispatient today, but the time of this documentaton. Portions of this note including HPI, ROS, impression/plan, and examination may have been copied forward from admission to today as to provide important historical information essential in contributing to medical decision making. Documentation has been reviewed and edited as necessary to support clinical decision making for today's visit and to reflect my own independent evaluation of this patient. Decision making for today's visit and to reflectmy own independent evaluation of this patient. Cosigned by Hi Mckeon DO at 09/21/2024 4:44 PM EST [id number] Consult note* ALEJANDRINA Urias CNP - 09/21/2024 8:15 AM ESTAssociated Order(s): IP CONSULT TO ENDOCRINOLOGY Department of Internal Medicine Division of Endocrinology, Diabetes, & Metabolism Endocrinology Note Patient Name: Hanna Nelson : 1940 AGE: 84 y.o. [facility] Admission Date: 09/18/2024 Visit Date: 09/21/2024 Reason for Endocrine Consult: DM Ty2 uncontrolled hyperglycemia Provider/Team Requesting Consult: Dr. Montes PCP: No primary care provider on file. Outpt Tactical Air Control Party Manager: No ASSESSMENT: Uncontrolled Hyperglycemia Hyperkalemia PLAN: Increase Lantus 24 units Continue Humalog to 10 units TID with meals Continue Humalog medium dose sliding scale TID with meals Insulin pen ordered for insulin pen practice while inpatient. Discussed need for insulin for discharge - Patient agreeable Discussed insulin pen insulin administration, glucometer and CGM use. 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 Nursing communication order for insulin pen demonstration and patient return demonstration with patient giving insulin for practice before discharge. Levothyroxine 112 mcg daily ICU goal <180 GMF goal <150 POCT BG ACHS Hypoglycemia management per protocol Carb controlled diet ANTICIPATED ENDOCRINE HOME GOING RECOMMENDATIONS: Optimized for Discharge from Endocrine standpoint: No Home Going Endocrine Rx Recommendations-- Metformin 500 mg BID with meals Stop Glimepiride Start Tradjenta 5 mg daily Start Lantus - Current dose on day of discharge. Patient will need Tradjenta, Lantus Pen, Insulin pen needles, Glucometer, test strips, lancets, alcohol pads for discharge. [place] [facility] SUBJECTIVE/HPI: CHIEF COMPLAINT: Chief Complaint Patient presents with Hyperglycemia Pt comes in today after being seen at [facility] yesterday for high sugar above 600 pt states she was able to get under 400 and was sent home yesterday but now pt states her sugar is high again and wont read on the monitor. Pt is alert and oriented but seems lethargic pts bgl is 535 Hanna is a 84 y.o. female with significant past medical history of [id number] diabetesmellitus, hypertension, hyperlipidemia, hypothyroidism, atrial fibrillation on Eliquis and neuropathy. Was brought to the emergency room due to uncontrolled blood sugars, patient was in the ER yesterdayand she was qualifying for DKA lytes protocol but patient refused admission and left the hospital. Today patient returned again due to uncontrolled blood sugars also noticed increased frequency of urination and extremely thirsty, no signs of confusion patient is alert and oriented x 3, denies any fever chills or rigors, denies any abdominal pain nausea or vomitings. Workup in the emergency room again showed blood sugars 548, hydroxybutyrate within normal limits, pH normal. 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 Patient has not set up primary care or had previous endocrinology team in the past. Reports she does not check blood sugars and with move, blood sugars probably got out of hand recently. Reports she has never given injections to herself. Agreeable to insulin for home going. Son has Javier and would like patient to have javier for monitoring blood sugars. [employer] smart phone at bedside. - Will plan to start patient on CGM before discharge. Type of DM: 2 Onset of DM: at age 49. Home DM Medication Regimen: Glimepiride 4 mg daily with breakfast Metformin 500 mg BID with meals DM control (last A1c/glucose data): Lab Results Component Value Date HGBA1C 12.2 (H) 09/20/2024 Glucose Date/Time Value Ref Range Status 09/21/2024 07:23 AM 265 (H) 70 - 100 mg/dL Final 09/20/2024 08:43 PM 155 (H) 70 - 100 mg/dL Final 09/20/2024 05:14 PM 168 (H) 70 - 100 mg/dL Final 09/20/2024 12:15 PM 266 (H) 70 - 100 mg/dL Final 09/20/2024 09:05 AM 251 (H) 70 - 100 mg/dL Final 09/19/2024 09:15 PM 210 (H) 70 - 100 mg/dL Final Review of Systems Constitutional: Negative for fatigue. Respiratory: Negative for shortness of breath. Cardiovascular: Negative for chest pain and palpitations. Gastrointestinal: Negative for abdominal pain, constipation, diarrhea, nausea and vomiting. Endocrine: Positive for polydipsia and polyuria. Neurological: Negative for weakness. Psychiatric/Behavioral: Negative for sleep disturbance. ROS negative except for those mentioned in HPI. OBJECTIVE: Vitals: 09/19/24211609/20/24 0909 09/20/24204109/21/24 0723 BP: 136/62 158/77 110/68 124/83 BP Location: Left arm Left arm Left arm Patient Position: Lying Lying Sitting Pulse: 64 57 73 87 Resp: 17 18 20 Temp: 36.3 C (97.4 F) 36.4 C (97.5 F) TempSrc: Temporal Temporal SpO2: 97% 100% 100% 100% Height: Physical Exam Vitals and nursing note reviewed. HENT: Head: Normocephalic. Nose: Nose normal. Eyes: Conjunctiva/sclera: Conjunctivae normal. Pulmonary: Effort: Pulmonary effort is normal. No respiratory distress. Musculoskeletal: General: No swelling. Neurological: Mental Status: She is alert. Psychiatric: Mood and Affect: Mood normal. Behavior: Behavior normal. 24 hour intake/output:No intake or output data in the 24 hours ending 09/21/24 0815 Diet: Adult diet Regular; 5 carb choices (75 gm/meal) Medications (as per EMR): HomeMeds: Current Outpatient Medications Medication Instructions amLODIPine (Norvasc) 5 MG tablet Oral, Daily apixaban (ELIQUIS) 5 mg, Oral, 2 times daily atenolol (Tenormin) 50 MG tablet Oral, Daily atorvastatin (LIPITOR) 40 mg, Oral, Daily fenofibrate (TRIGLIDE) 160 mg, Oral, Daily gabapentin (NEURONTIN) 300 mg, Oral, 2 times daily glimepiride (AMARYL) 4 mg, Oral, Daily before breakfast glucose blood test strip Use as instructed levothyroxine (Tirosint) 112 MCG capsule Oral, Daily before breakfast lisinopril 20 MG tablet Oral, Daily metFORMIN (GLUCOPHAGE) 500 mg, Oral, 2 times daily with meals oxybutynin (Ditropan) 5 MG tablet Oral Scheduled Meds:amLODIPine, 5 mg, Oral, Daily apixaban, 5 mg, Oral, BID atenolol, 50 mg, Oral, Daily atorvastatin, 40 mg, Oral, Daily cefTRIAXone, 1,000 mg, IntraVENous, q24h fenofibrate, 160 mg, Oral, Daily gabapentin, 300 mg, Oral, BID insulin glargine, 20 Units, SubCUTAneous, Nightly insulin lispro, 0-12 Units, SubCUTAneous, TID WC And insulin lispro, 0-12 Units, SubCUTAneous, Nightly insulin lispro, 8 Units, SubCUTAneous, TID WC levothyroxine, 112 mcg, Oral, qAM AC lisinopril, 20 mg, Oral, Daily trospium, 20 mg, Oral, BID AC Continuous Infusions:sodium chloride, 75 mL/hr, Last Rate: 75 mL/hr (09/20/24 1000) PRN Meds:PRN medications: acetaminophen OR acetaminophen, dextrose, dextrose, glucagon (rDNA), glucose, ondansetron ODT OR ondansetron, polyethylene glycol (PEG) 3350 Diagnostic Workup: I reviewed pertinent Laboratory results, Radiographic results, and Other Clinical Notes at the timeof today's encounter. Labs: No components found for: "LABA1C" No components found for: "EAG" Lab Results Component Value Date NA 136 09/21/2024 K 4.3 09/21/2024 CL 108 (H) 09/21/2024 CO2 19 (L) 09/21/2024 BUN 29 (H) 09/21/2024 CREATININE 1.04 09/21/2024 GLUCOSE 265 (H) 09/21/2024 CALCIUM 8.6 (L) 09/21/2024 No results found for: "CHLPL", "CHOL" No results found for: "TRIG" No results found for: "HDL" No results found for: "LDLCALC" No results found for: "VLDL" No results found for: "CHOLHDLRATIO" No results found for: "IZWN67IAS" No results found for: "TSH", "C6KCFIX", "T0XGIKO", "THYROIDAB" Radiology reportsas per the Radiologist Radiology: POCT glucose meter Result Date: 09/19/2024 Performed by: Rodrigo Estrella, [address] [place] [id number] CLIA ID: [id number] POCT glucose meter Result Date: 09/19/2024 Performed by: Rodrigo Estrella, [address] [place] [address] [id number] CLIA ID: [id number] POCT glucose meter Result Date: 09/19/2024 Performed by: Rodrigo Estrella, [address] [place] [address] 607[address] CLIA ID: [id number] POCT glucose meter Result Date: 09/19/2024 Performed by: Rodrigo Estrella, [address] [place] [address] 722[address] CLIA ID: [id number] POCT glucose meter Result Date: 09/19/2024 Performed by: Rodrigo Estrella, [address] [place] [address] [id number] CLIA ID: [id number] POCT glucose meter Result Date: 09/19/2024 [facility], [address] [place] [address] CLIA ID: [id number] POCT glucose meter Result Date: 09/18/2024 [facility], [address] [place] [address] 276[address] CLIA ID: [id number] POCT glucose meter Result Date: 09/18/2024 [facility], [address] [place] [address] 655[address] CLIA ID: [id number] POCT glucose meter Result Date: 09/18/2024 [facility], [address] [place] [id number] CLIA ID: [id number] POCT glucose meter Result Date: 09/18/2024 [facility], [address] [place] [address] CLIA ID: [id number] POCT glucose meter Result Date: 09/18/2024 Performed by: [facility], [address] [place] [address] CLIA ID: [id number] POCT glucose meter Result Date: 09/18/2024 Performed by: [facility], [address] [place] [address] 9[address] CLIA ID: [id number] History/Other: Past Medical History: Past Medical History: Diagnosis Date Atrial fibrillation (HCC) Diabetes mellitus (HCC) Hyperlipidemia Hypertension Hypothyroidism Neuropathy Past Surgical History: Past Surgical History: Procedure Laterality Date BACK SURGERY CHOLECYSTECTOMY Allergy(ies): No Known Allergies Family History: No family history on file. Social History: Social History Tobacco Use Smoking status: Former Current packs/day: 0.00 Types: Cigarettes Quit date: 1965 Years since quittin.1 Smokeless tobacco: Never Vaping Use Vaping status: Never Used Substance Use Topics Alcohol use: Not Currently Drug use: Never Portions of the information within this encounter were entered using an electronic dictation system. Best attempts were made to edit/proofread the information prior to note completion. Despite the review of information, some errors may remain. If there are questions related to the information contained within the note please contact the signing physician directly. I spent 75 minutes with the pt which involved coordination of care, medical evaluation, review of records, and/or counseling of the pt regarding his/her condition/disease state/prognosis on the date of this note. Cosigned by Demetrio Shahid MD at 09/22/2024 1:10 PM EST [id number] History and physical note* Fish Montes MD - 09/18/2024 6:55 PM EST Attending History and Physical Admit Date: 09/18/2024 PCP: No primary care provider on file. CHIEF COMPLAINT: Blood sugars are running high Reason for Admission: Uncontrolled hyperglycemia. Hyperkalemia. Suspecting urinary tract infection History Obtained From: patient HISTORY OF PRESENT ILLNESS: Hanna is a 84 y.o. female with significant past medical history of pmc-iyazgcc-hzynggdqo diabetesmellitus, hypertension, hyperlipidemia, hypothyroidism, atrial fibrillation on Eliquis and neuropathy. Was brought to the emergency room due to uncontrolled blood sugars, patient was in the ER yesterdayand she was qualifying for DKA lytes protocol but patient refused admission and left the hospital. Today patient returned again due to uncontrolled blood sugars also noticed increased frequency of urination and extremely thirsty, no signs of confusion patient is alert and oriented x 3, denies any fever chills or rigors, denies any abdominal pain nausea or vomitings. Workup in the emergency room again showed blood sugars 548, hydroxybutyrate within normal limits, pH normal. Patient received 1 dose of IV insulin, admitting patient for further management. Past Medical History: Past Medical History: Diagnosis Date Diabetes mellitus (HCC) Hypertension Past Surgical History: History reviewed. No pertinent surgical history. Social History: Social History Socioeconomic History Marital status: Spouse name: Not on file Number of children: Not on file Years of education: Not on file Highest education level: Not on file Occupational History Not on file Tobacco Use Smoking status: Former Current packs/day: 0.00 Types: Cigarettes Quit date: 1964 Years since quittin.1 Smokeless tobacco: Never Substance and Sexual Activity Alcohol use: Not Currently Drug use: Never Sexual activity: Not on file Other Topics Concern Not on file Social History Narrative Not on file Social Drivers of Health Financial Resource Strain: Not on file Food Insecurity: Not on file Transportation Needs: Not on file Physical Activity: Not on file Stress: Not on file Social Connections: Not on file Intimate Partner Violence: Not on file Housing Stability: Not on file Family History: No family history on file. Medications Prior to Admission: No current facility-administered medications on file prior to encounter. Current Outpatient Medications on File Prior to Encounter Medication Sig Dispense Refill amLODIPine (Norvasc) 5 MG tablet Take by mouth daily. apixaban (Eliquis) 5 MG tablet Take 5 mg by mouth 2 times daily. atenolol (Tenormin) 50 MG tablet Take by mouth daily. atorvastatin (Lipitor) 40 MG tablet Take 40 mg by mouth daily. fenofibrate (Triglide) 160 MG tablet Take 160 mg by mouth daily. gabapentin (Neurontin) 300 MG capsule Take 300 mg by mouth 2 times daily. glimepiride (Amaryl) 4 MG tablet Take 4 mg by mouth every morning (before breakfast). glucose blood test strip Use as instructed 100 each 0 levothyroxine (Tirosint) 112 MCG capsule Take by mouth every morning (before breakfast). lisinopril 20 MG tablet Take by mouth daily. metFORMIN (Glucophage) 500 MG tablet Take 1 tablet (500 mg) by mouth 2 times daily (with meals). 60tablet 1 oxybutynin (Ditropan) 5 MG tablet Take by mouth. [DISCONTINUED] metFORMIN (Glucophage) 500 MG tablet Take by mouth. Allergies: Patient has no known allergies. REVIEW OF SYSTEMS: Constitutional: Negative for fever, chills, activity change and unexpected weight change. HEENT: Negative for congestion, postnasal drip and sneezing. Eyes: Negative for itching and visual disturbance. Respiratory: Negative for apnea, cough, choking, chest tightness, shortness of breath, wheezing andstridor. Cardiovascular: Negative for chest pain. Gastrointestinal: Negative for nausea, vomiting, abdominal pain, diarrhea and blood in stool. Genitourinary: Negative for dysuria, frequency and flank pain. Musculoskeletal: Negative for myalgias and joint swelling. Skin: Negative for rash. Neurological: Negative for dizziness, tremors, seizures, syncope, facial asymmetry, speech difficulty, weakness, numbness and headaches. Hematological: Negative for adenopathy. Psychiatric/Behavioral: Negative for suicidal ideas, behavioral problems, self- injury and dysphoricmood. Vitals: BP (!) 142/69 Pulse 64 Temp 36.8 C (98.2 F) (Temporal) Resp 16 SpO2 100% BMI Classification: Overweight (BMI 25.0-29.9) Pulse Ox: SpO2 Av.7 % Min: 99 % Max: 100 % Supplemental O2: PHYSICAL EXAM: General appearance: No apparent distress, appears stated age and cooperative with exam. HEENT: Normal cephalic, atraumatic without obvious deformity. Pupils equal, round, and reactive to light. Extra ocular muscles intact. Conjunctivae/corneas clear. Neck: Supple, with full range of motion. No jugular venous distention. Trachea midline. No lymphadenopathy. Respiratory: Normal respiratory effort. Clear to auscultation, bilaterally without Rales/Wheezes/Rhonchi. Cardiovascular: Regular rate and rhythm with normal S1/S2 without murmurs, rubs or gallops. Abdomen: Soft, non-tender, non-distended with normal bowel sounds. No rebound or guarding. Musculoskeletal: No clubbing, cyanosis or edema bilaterally. Full range of motion without deformity, +2 peripheral pulses in all extremities. Skin: Skin color, texture, turgor normal. No rashes or lesions. Neurologic: Neurovascularly intact without any focal sensory/motor deficits. Cranial nerves: II-XIIintact, grossly non-focal. Psychiatric: Alert and oriented, thought content appropriate, normal insight. DATA: CBC: Recent Labs 09/18/24 1603 09/18/24 1616 WBC 8.7 -- RBC 4.06 -- HGB 12.5 14.6 HCT 38.1 -- MCV 93.8 -- RDW 13.4 -- PLT 245 -- BMP: Recent Labs 09/17/24 1222 09/17/24 1323 09/17/24 1432 09/18/24 1603 NA 128* -- 133* 132* K 5.8* -- 4.8 5.6* CL 98 -- 104 103 CO2 20* -- 22* 18* BUN 25* -- 22 33* CREATININE 1.49* -- 1.22* 1.41* GLUCOSE 613* 539* 484* 548* CALCIUM 9.6 -- 8.9 9.2 ANIONGAP 10 -- 7 11 LIVER PROFILE: Recent Labs 09/18/24 1603 AST 20 ALT 16 BILITOT 0.4 ALKPHOS 102 PROT 7.3 PT/INR: No results for input(s): "PROTIME", "INR" in the last 72 hours. CARDIAC ENZYMES: No results for input(s): "TROPONINI" in the last 72 hours. Procalcitonin: No results found for: "PROCAL" Urine Culture: No results found for this or any previous visit. COVID-19 PCR: No results for input(s): "COVID19" in the last 72 hours. I reviewed: [x] laboratory results [x] radiographic results At the time of today's encounter. Pt was advised of the results. IMPRESSION: Uncontrolled wsr-hioivil-vvnkfmyqy diabetes mellitus with hyperglycemia. Hyperkalemia. Acute on chronic kidney disease. Non-anion gap metabolic acidosis with Mild pseudohyponatremia secondary to hyperglycemia. Elevated blood pressure. History of: Renal fibrillation on Eliquis. Hypertension Hyperlipidemia. Ikg-oauhjgd-straibvia diabetes mellitus Hypothyroidism. Neuropathy. Plan: Patient presented with uncontrolled blood pressure with increased frequency urination. Blood sugars in the emergency room more than 500, beta-hydroxybutyrate within normal limits. pH within normal limits. Patient did not qualify for DKA lytes protocol. Patient received IV insulin 1 dose in the emergency room, follow-up of blood sugars down to 390. Holding oral diabetic medications. Started patient on Lantus 15 units nightly, lispro 6 units 3 times daily with meals and medium dosesliding scale. Endocrinology consulted will follow-up on the recommendations. Repeat potassium levels ordered. Continue IV fluids follow-up creatinine. Blood pressure running high in 150s systolic-resumed home medications Follow-up CBC BMP ordered PT OT evaluation. DVT prophylaxis: Patient is on Eliquis. Disposition: Possible discharge in next 1 to 2 days. Pending endocrinology consult. -PT/OT eval/increase activity -am labs, replace lytes prn -vitals per routine -home meds as ordered -DVT prophylaxis: [] Lovenox [] Heparin [] SCDs [x] Encourage ambulation [] Already on Anticoagulation -see below for additional orders, further recommendations to follow Orders Placed This Encounter Procedures Beta Hydroxybutyrate CBC auto differential Comprehensive metabolic panel Blood gas, venous (ACH and SBH) Urinalysis Complete with reflex to Culture Complete Urinalysis CBC auto differential Basic Metabolic Panel w/ Mg Reflex Potassium Adult diet Regular; Low Potassium (Less than 3000 mg/day); 5 carb choices (75 gm/meal) Telemetry monitoring for Other Indication; Hyperkalemia Vital Signs Notify patient's primary care provider of admission Activity Up With Assistance Notify physician per STANDARD parameters HYPOGLYCEMIA TREATMENT: blood glucose less than 50 mg/dL and patient ALERT and TOLERATING PO HYPOGLYCEMIA TREATMENT: blood glucose less than 70 mg/dL and patient NOT ALERT or NPO Full code Initiate Oxygen Therapy Protocol POCT glucose meter POCT glucose meter POCT glucose meter POCT glucose meter POCT glucose meter Insert peripheral IV Admit to inpatient Code status: Full Code Please forward a copy of this H&P to the patient's PCP. Thank you. Electronically signed by @[email or web address]@ on @TDNR@ at @NOWNR@ [id number] History and physical note* Fish Montes MD - 09/18/2024 6:55 PM EST Attending History and Physical Admit Date: 09/18/2024 PCP: No primary care provider on file. CHIEF COMPLAINT: Blood sugars are running high Reason for Admission: Uncontrolled hyperglycemia. Hyperkalemia. Suspecting urinary tract infection History Obtained From: patient HISTORY OF PRESENT ILLNESS: Hanna is a 84 y.o. female with significant past medical history of efr-iwragwi-ciegiswid diabetesmellitus, hypertension, hyperlipidemia, hypothyroidism, atrial fibrillation on Eliquis and neuropathy. Was brought to the emergency room due to uncontrolled blood sugars, patient was in the ER yesterdayand she was qualifying for DKA lytes protocol but patient refused admission and left the hospital. Today patient returned again due to uncontrolled blood sugars also noticed increased frequency of urination and extremely thirsty, no signs of confusion patient is alert and oriented x 3, denies any fever chills or rigors, denies any abdominal pain nausea or vomitings. Workup in the emergency room again showed blood sugars 548, hydroxybutyrate within normal limits, pH normal. Patient received 1 dose of IV insulin, admitting patient for further management. Past Medical History: Past Medical History: Diagnosis Date Diabetes mellitus (HCC) Hypertension Past Surgical History: History reviewed. No pertinent surgical history. Social History: Social History Socioeconomic History Marital status: Spouse name: Not on file Number of children: Not on file Years of education: Not on file Highest education level: Not on file Occupational History Not on file Tobacco Use Smoking status: Former Current packs/day: 0.00 Types: Cigarettes Quit date: 1964 Years since quittin.1 Smokeless tobacco: Never Substance and Sexual Activity Alcohol use: Not Currently Drug use: Never Sexual activity: Not on file Other Topics Concern Not on file Social History Narrative Not on file Social Drivers of Health Financial Resource Strain: Not on file Food Insecurity: Not on file Transportation Needs: Not on file Physical Activity: Not on file Stress: Not on file Social Connections: Not on file Intimate Partner Violence: Not on file Housing Stability: Not on file Family History: No family history on file. Medications Prior to Admission: No current facility-administered medications on file prior to encounter. Current Outpatient Medications on File Prior to Encounter Medication Sig Dispense Refill amLODIPine (Norvasc) 5 MG tablet Take by mouth daily. apixaban (Eliquis) 5 MG tablet Take 5 mg by mouth 2 times daily. atenolol (Tenormin) 50 MG tablet Take by mouth daily. atorvastatin (Lipitor) 40 MG tablet Take 40 mg by mouth daily. fenofibrate (Triglide) 160 MG tablet Take 160 mg by mouth daily. gabapentin (Neurontin) 300 MG capsule Take 300 mg by mouth 2 times daily. glimepiride (Amaryl) 4 MG tablet Take 4 mg by mouth every morning (before breakfast). glucose blood test strip Use as instructed 100 each 0 levothyroxine (Tirosint) 112 MCG capsule Take by mouth every morning (before breakfast). lisinopril 20 MG tablet Take by mouth daily. metFORMIN (Glucophage) 500 MG tablet Take 1 tablet (500 mg) by mouth 2 times daily (with meals). 60tablet 1 oxybutynin (Ditropan) 5 MG tablet Take by mouth. [DISCONTINUED] metFORMIN (Glucophage) 500 MG tablet Take by mouth. Allergies: Patient has no known allergies. REVIEW OF SYSTEMS: Constitutional: Negative for fever, chills, activity change and unexpected weight change. HEENT: Negative for congestion, postnasal drip and sneezing. Eyes: Negative for itching and visual disturbance. Respiratory: Negative for apnea, cough, choking, chest tightness, shortness of breath, wheezing andstridor. Cardiovascular: Negative for chest pain. Gastrointestinal: Negative for nausea, vomiting, abdominal pain, diarrhea and blood in stool. Genitourinary: Negative for dysuria, frequency and flank pain. Musculoskeletal: Negative for myalgias and joint swelling. Skin: Negative for rash. Neurological: Negative for dizziness, tremors, seizures, syncope, facial asymmetry, speech difficulty, weakness, numbness and headaches. Hematological: Negative for adenopathy. Psychiatric/Behavioral: Negative for suicidal ideas, behavioral problems, self- injury and dysphoricmood. Vitals: BP (!) 142/69 Pulse 64 Temp 36.8 C (98.2 F) (Temporal) Resp 16 SpO2 100% BMI Classification: Overweight (BMI 25.0-29.9) Pulse Ox: SpO2 Av.7 % Min: 99 % Max: 100 % Supplemental O2: PHYSICAL EXAM: General appearance: No apparent distress, appears stated age and cooperative with exam. HEENT: Normal cephalic, atraumatic without obvious deformity. Pupils equal, round, and reactive to light. Extra ocular muscles intact. Conjunctivae/corneas clear. Neck: Supple, with full range of motion. No jugular venous distention. Trachea midline. No lymphadenopathy. Respiratory: Normal respiratory effort. Clear to auscultation, bilaterally without Rales/Wheezes/Rhonchi. Cardiovascular: Regular rate and rhythm with normal S1/S2 without murmurs, rubs or gallops. Abdomen: Soft, non-tender, non-distended with normal bowel sounds. No rebound or guarding. Musculoskeletal: No clubbing, cyanosis or edema bilaterally. Full range of motion without deformity, +2 peripheral pulses in all extremities. Skin: Skin color, texture, turgor normal. No rashes or lesions. Neurologic: Neurovascularly intact without any focal sensory/motor deficits. Cranial nerves: II-XIIintact, grossly non-focal. Psychiatric: Alert and oriented, thought content appropriate, normal insight. DATA: CBC: Recent Labs 09/18/24 1603 09/18/24 1616 WBC 8.7 -- RBC 4.06 -- HGB 12.5 14.6 HCT 38.1 -- MCV 93.8 -- RDW 13.4 -- PLT 245 -- BMP: Recent Labs 09/17/24 1222 09/17/24 1323 09/17/24 1432 09/18/24 1603 NA 128* -- 133* 132* K 5.8* -- 4.8 5.6* CL 98 -- 104 103 CO2 20* -- 22* 18* BUN 25* -- 22 33* CREATININE 1.49* -- 1.22* 1.41* GLUCOSE 613* 539* 484* 548* CALCIUM 9.6 -- 8.9 9.2 ANIONGAP 10 -- 7 11 LIVER PROFILE: Recent Labs 09/18/24 1603 AST 20 ALT 16 BILITOT 0.4 ALKPHOS 102 PROT 7.3 PT/INR: No results for input(s): "PROTIME", "INR" in the last 72 hours. CARDIAC ENZYMES: No results for input(s): "TROPONINI" in the last 72 hours. Procalcitonin: No results found for: "PROCAL" Urine Culture: No results found for this or any previous visit. COVID-19 PCR: No results for input(s): "COVID19" in the last 72 hours. I reviewed: [x] laboratory results [x] radiographic results At the time of today's encounter. Pt was advised of the results. IMPRESSION: Uncontrolled bit-ygzkgrk-mqokidqpm diabetes mellitus with hyperglycemia. Hyperkalemia. Acute on chronic kidney disease. Non-anion gap metabolic acidosis with Mild pseudohyponatremia secondary to hyperglycemia. Elevated blood pressure. History of: Renal fibrillation on Eliquis. Hypertension Hyperlipidemia. Jwa-wybvtvl-wfxfxuymu diabetes mellitus Hypothyroidism. Neuropathy. Plan: Patient presented with uncontrolled blood pressure with increased frequency urination. Blood sugars in the emergency room more than 500, beta-hydroxybutyrate within normal limits. pH within normal limits. Patient did not qualify for DKA lytes protocol. Patient received IV insulin 1 dose in the emergency room, follow-up of blood sugars down to 390. Holding oral diabetic medications. Started patient on Lantus 15 units nightly, lispro 6 units 3 times daily with meals and medium dosesliding scale. Endocrinology consulted will follow-up on the recommendations. Repeat potassium levels ordered. Continue IV fluids follow-up creatinine. Blood pressure running high in 150s systolic-resumed home medications Follow-up CBC BMP ordered PT OT evaluation. DVT prophylaxis: Patient is on Eliquis. Disposition: Possible discharge in next 1 to 2 days. Pending endocrinology consult. -PT/OT eval/increase activity -am labs, replace lytes prn -vitals per routine -home meds as ordered -DVT prophylaxis: [] Lovenox [] Heparin [] SCDs [x] Encourage ambulation [] Already on Anticoagulation -see below for additional orders, further recommendations to follow Orders Placed This Encounter Procedures Beta Hydroxybutyrate CBC auto differential Comprehensive metabolic panel Blood gas, venous (ACH and SBH) Urinalysis Complete with reflex to Culture Complete Urinalysis CBC auto differential Basic Metabolic Panel w/ Mg Reflex Potassium Adult diet Regular; Low Potassium (Less than 3000 mg/day); 5 carb choices (75 gm/meal) Telemetry monitoring for Other Indication; Hyperkalemia Vital Signs Notify patient's primary care provider of admission Activity Up With Assistance Notify physician per STANDARD parameters HYPOGLYCEMIA TREATMENT: blood glucose less than 50 mg/dL and patient ALERT and TOLERATING PO HYPOGLYCEMIA TREATMENT: blood glucose less than 70 mg/dL and patient NOT ALERT or NPO Full code Initiate Oxygen Therapy Protocol POCT glucose meter POCT glucose meter POCT glucose meter POCT glucose meter POCT glucose meter Insert peripheral IV Admit to inpatient Code status: Full Code Please forward a copy of this H&P to the patient's PCP. Thank you. Electronically signed by @[email or web address]@ on @TDNR@ at @NOWNR@ documented in this [facility]02-07-2025 Emergency department Note* Janet Niño MD - 09/18/2024 3:05 PM EST EMERGENCY DEPARTMENT ENCOUNTER Pt Name: Hanna Nelson Birthdate 1940 Date of evaluation: 09/18/2024 ED Provider: Janet Niño MD CHIEF COMPLAINT Chief Complaint Patient presents with Hyperglycemia Pt comes in today after being seen at [place] yesterday for high sugar above 600 pt states she was able to get under 400 and was sent home yesterday but now pt states her sugar is high again and wont read on the monitor. Pt is alert and oriented but seems lethargic pts bgl is 535 HISTORY OF PRESENT ILLNESS (Location/Symptom, Timing/Onset, Context/Setting, Quality, Duration, Modifying Factors, Severity) Note limiting factors. I wore appropriate PPE for the entirety of this encounter. HPI Hanna Nelson is a 84 y.o. who presents to the emergency department with chief complaint of elevated blood glucose. Patient was just in the ED yesterday due to uncontrolled blood sugar. Type II diabetic, states that she takes metformin and glimepiride. States she has been compliant with these medications. Has never been on insulin. Family states she has been extremely thirsty and urinating more frequently. Is slightly confused over the last couple of days but is alert and oriented x 4. Patientdenies any chest pain or shortness of breath. No fever or chills. She has been eating and drinking well. Chart review reveals that the provider yesterday found the patient to be in DKA light per our protocol and recommended admission however they declined admission at the time and patient subsequently was treated with insulin bolus, Lantus, and IV fluids and subsequently discharged home after improvement in labs. Nursing Notes were reviewed. Limitations to history: None Outside historians: Family adult children. REVIEW OF SYSTEMS Review of Systems All other systems reviewed and are negative. Pertinent positives and negatives as per HPI. PAST MEDICAL HISTORY Past Medical History: Diagnosis Date Diabetes mellitus (HCC) Hypertension SURGICAL HISTORY History reviewed. No pertinent surgical history. CURRENT MEDICATIONS Previous Medications AMLODIPINE (NORVASC) 5 MG TABLET Take by mouth daily. APIXABAN (ELIQUIS) 5 MG TABLET Take 5 mg by mouth 2 times daily. ATENOLOL (TENORMIN) 50 MG TABLET Take by mouth daily. ATORVASTATIN (LIPITOR) 40 MG TABLET Take 40 mg by mouth daily. FENOFIBRATE (TRIGLIDE) 160 MG TABLET Take 160 mg by mouth daily. GABAPENTIN (NEURONTIN) 300 MG CAPSULE Take 300 mg by mouth 2 times daily. GLIMEPIRIDE (AMARYL) 4 MG TABLET Take 4 mg by mouth every morning (before breakfast). GLUCOSE BLOOD TEST STRIP Use as instructed LEVOTHYROXINE (TIROSINT) 112 MCG CAPSULE Take by mouth every morning (before breakfast). LISINOPRIL 20 MG TABLET Take by mouth daily. METFORMIN (GLUCOPHAGE) 500 MG TABLET Take 1 tablet (500 mg) by mouth 2 times daily (with meals). OXYBUTYNIN (DITROPAN) 5 MG TABLET Take by mouth. ALLERGIES Patient has no known allergies. FAMILY HISTORY No family history on file. SOCIAL HISTORY Social History Socioeconomic History Marital status: Tobacco Use Smoking status: Former Current packs/day: 0.00 Types: Cigarettes Quit date: 1964 Years since quittin.1 Smokeless tobacco: Never Substance and Sexual Activity Alcohol use: Not Currently Drug use: Never SCREENINGS Marlene Coma Scale Best Eye Response: Spontaneous Best Verbal Response: Oriented Best Motor Response: Follows commands [place] Coma Scale Score: 15 PHYSICAL EXAM ED Triage Vitals [09/18/24 1508] Temp Heart Rate Resp BP 36.8 C (98.2 F) 56 20 (!) 141/64 SpO2 Temp Source Heart Rate Source Patient Position 99 % Temporal Monitor -- BP Location FiO2 (%) -- -- Physical Exam Vitals and nursing note reviewed. Constitutional: General: She is not in acute distress. Appearance: Normal appearance. She is not ill-appearing. HENT: Head: Normocephalic. Nose: Nose normal. Mouth/Throat: Mouth: Mucous membranes are dry. Eyes: Conjunctiva/sclera: Conjunctivae normal. Cardiovascular: Rate and Rhythm: Normal rate and regular rhythm. Pulses: Normal pulses. Heart sounds: Normal heart sounds. Pulmonary: Effort: Pulmonary effort is normal. No respiratory distress. Breath sounds: Normal breath sounds. Abdominal: General: There is no distension. Palpations: Abdomen is soft. Tenderness: There is no abdominal tenderness. There is no guarding. Musculoskeletal: General: No tenderness. Right lower leg: Edema present. Left lower leg: Edema present. Skin: General: Skin is warm and dry. Neurological: Mental Status: She is alert and oriented to person, place, and time. Psychiatric: Mood and Affect: Mood normal. Behavior: Behavior normal. DIAGNOSTIC RESULTS Procedures/EKG: EKG was reviewed by myself. Physician EKG interpretation can be found in [facility] RADIOLOGY (Per Emergency Physician): Interpretation per the Radiologist below, if available at the time of this note: No orders to display ED BEDSIDE ULTRASOUND: Performed by ED Physician - none LABS: Labs Reviewed CBC WITH AUTO DIFFERENTIAL - Abnormal Result Value Auto WBC 8.7 RBC 4.06 Hemoglobin 12.5 Hematocrit 38.1 MCV 93.8 MCH 30.8 MCHC 32.8 RDW 13.4 Platelets 245 MPV 11.2 nRBC 0.0 Neutrophils Relative 76.7 Lymphocytes Relative 13.5 (*) Monocytes Relative 7.0 Eosinophils Relative 1.7 Basophils Relative 0.6 Immature Grans % 0.5 Neutrophils Absolute 6.7 Lymphocytes Absolute 1.2 Monocytes Absolute 0.6 Eosinophils Absolute 0.2 Basophils Absolute 0.1 Immature Grans Absolute 0.0 COMPREHENSIVE METABOLIC PANEL - Abnormal SODIUM 132 (*) POTASSIUM 5.6 (*) CHLORIDE 103 CARBON DIOXIDE 18 (*) ANION GAP 11 UREA NITROGEN 33 (*) CREATININE 1.41 (*) GLUCOSE 548 (*) CALCIUM 9.2 AST (SGOT) 20 ALT 16 ALKALINE PHOSPHATASE 102 ALBUMIN 3.6 BILIRUBIN, TOTAL 0.4 TOTAL PROTEIN 7.3 eGFR 36.6 (*) BLOOD GAS, VENOUS - Abnormal pH, Venous 7.320 pCO2, Venous 36.7 pO2, Venous 27.7 HCO3, Venous 18.5 (*) O2 Sat, Venous 46.3 Base Excess, Venous -6.8 (*) Hgb, blood gas 14.6 TCO2, Venous 19.6 (*) Source Of Oxygen Room Air Narrative: Assessment of oxygenation is best done with an arterial blood gas determination. Reference ranges for pO2, bicarbonate, and base excess are for mixed venous blood. Specimens drawn from a peripheral vein will often have higher values. COMPLETE URINALYSIS - Abnormal Color, Urine Colorless Clarity, Urine Clear pH, Urine 5.0 Leukocytes, Urine Negative Nitrite, Urine Positive (*) Protein, Urine Negative Glucose, Urine >1,000 (*) Bilirubin, Urine Negative Ketones, Urine Negative Urobilinogen, Urine Normal Blood, Urine Negative RBC, Urine 0-2 WBC, Urine 3-5 Squamous Epithelial, Urine 0-2 Bacteria, Urine Moderate (*) SPECIFIC GRAVITY OF URINE (NUMERIC) 1.024 POCT GLUCOSE METER UNSOLICITED RESULTS - Abnormal Glucose >450 (*) Narrative: [facility], [address] [place] [id number] CLIA ID: [id number] POCT GLUCOSE METER UNSOLICITED RESULTS - Abnormal Glucose >450 (*) Narrative: Performed by: [facility], [address] [facility] [address] CLIA ID: [id number] POCT GLUCOSE METER UNSOLICITED RESULTS - Abnormal Glucose >450 (*) Narrative: Performed by: [facility], [address] [facility] [address] CLIA ID: [id number] BETA HYDROXYBUTYRATE - Normal BETA HYDROXYBUTYRATE 2.7 COMPLETE URINALYSIS WITH REFLEX TO CULTURE Narrative: The following orders were created for panel order Urinalysis Complete with reflex to Culture. Procedure Abnormality Status --------- ------ Complete Urinalysis[[id number]] Abnormal Final result Please view results for these tests on the individual orders. GLUCOSE, RANDOM POCT GLUCOSE METER POCT GLUCOSE METER POCT GLUCOSE METER POCT GLUCOSE METER POCT GLUCOSE METER All other labs were within normal range or not returned as of this dictation. EMERGENCY DEPARTMENT COURSE and DIFFERENTIAL DIAGNOSIS/MDM: Vitals: Vitals: 09/18/24 1508 09/18/24 1709 BP: (!) 141/64 (!) 152/88 Pulse: 56 56 Resp: 20 16 Temp: 36.8 C (98.2 F) TempSrc: Temporal SpO2: 99% 100% Patient presents to the ED for evaluation of elevated blood glucose as described in HPI. Was seen in the ED yesterday where she was found to have DKA light per hospital criteria. Patient refused admission. Was treated with insulin and IV fluids in the ED. Initially found to have elevated potassium on labs but back to normal range on repeat labs after therapy in the ED. Patient returns today due to uncontrolled blood sugars again. Workup today shows elevated blood glucose but no beta hydroxybutyrate elevation nor acid-base disturbance. Hyperkalemia again here in the ED. Treatment with IV fluids and insulin in the ED. Urinalysis shows evidence urinary tract infection. Possibly contributing factor for her family reporting some increased confusion from baseline as well as possibly explaining her suddenly poorly controlled diabetes. Patient be admitted for continued evaluation and management. Rocephin initiated in the ED for the UTI. Urine cultures pending. Patient is not meeting any sepsis/SIRS criteria. Diagnoses as of 09/18/241735 Hyperkalemia Urinary tract infection without hematuria, site unspecified Uncontrolled type 2 diabetes mellitus with hyperglycemia (HCC) Medications glucose oral gel 15 g (has no administration in time range) dextrose 50 % solution 12.5 g (has no administration in time range) glucagon (human recombinant) injection 1 mg (has no administration in time range) dextrose 5 % infusion (has no administration in time range) glucose oral gel 15 g (has no administration in time range) dextrose 50 % solution 12.5 g (has no administration in time range) glucagon (human recombinant) injection 1 mg (has no administration in time range) dextrose 5 % infusion (has no administration in time range) cefTRIAXone (Rocephin) 1,000 mg in sodium chloride 0.9 % 50 mL IVPB Mini-Bag Plus (has no administration in time range) sodium chloride 0.9 % bolus 1,000 mL (1,000 mL IntraVENous New Bag 09/18/24 1618) insulin regular (HumuLIN R,NovoLIN R) injection 9 Units (9 Units IntraVENous Given 09/18/24 1700) REVAL: CRITICAL CARE TIME None CONSULTS: None PROCEDURES: Unless otherwise noted below, none Procedures Patients symptoms are consistent with sepsis, severe sepsis, or septic shock (If yes use ".sepsiscoremeasure"): No FINAL IMPRESSION 1. Uncontrolled type 2 diabetes mellitus with hyperglycemia (HCC) 2. Hyperkalemia 3. Urinary tract infection without hematuria, site unspecified DISPOSITION Admit 09/18/2024 04:57:50 PM PATIENT REFERRED TO: No follow-up provider specified. DISCHARGE MEDICATIONS: New Prescriptions No medications on file (Comment: Please note this report has been produced using speech recognition software and may contain errors related to that system including errors in grammar, punctuation, and spelling, as well as words and phrases that may be inappropriate. If there are any questions or concerns please feel freeto contact the dictating provider for clarification.) Janet Niño MD (electronically signed) Emergency Medicine Provider Janet Niño MD 09/18/241737 documented in this [facility]02-07-2025 Physician Emergency department Note* Janet Niño MD - 09/18/2024 3:05 PM EST EMERGENCY DEPARTMENT ENCOUNTER Pt Name: Hanna Nelson Birthdate 1940 Date of evaluation: 09/18/2024 ED Provider: Janet Niño MD CHIEF COMPLAINT Chief Complaint Patient presents with Hyperglycemia Pt comes in today after being seen at [facility] yesterday for high sugar above 600 pt states she was able to get under 400 and was sent home yesterday but now pt states her sugar is high again and wont read on the monitor. Pt is alert and oriented but seems lethargic pts bgl is 535 HISTORY OF PRESENT ILLNESS (Location/Symptom, Timing/Onset, Context/Setting, Quality, Duration, Modifying Factors, Severity) Note limiting factors. I wore appropriate PPE for the entirety of this encounter. HPI Hanna Nelson is a 84 y.o. who presents to the emergency department with chief complaint of elevated blood glucose. Patient was just in the ED yesterday due to uncontrolled blood sugar. Type II diabetic, states that she takes metformin and glimepiride. States she has been compliant with these medications. Has never been on insulin. Family states she has been extremely thirsty and urinating more frequently. Is slightly confused over the last couple of days but is alert and oriented x 4. Patientdenies any chest pain or shortness of breath. No fever or chills. She has been eating and drinking well. Chart review reveals that the provider yesterday found the patient to be in DKA light per our protocol and recommended admission however they declined admission at the time and patient subsequently was treated with insulin bolus, Lantus, and IV fluids and subsequently discharged home after improvement in labs. Nursing Notes were reviewed. Limitations to history: None Outside historians: Family adult children. REVIEW OF SYSTEMS Review of Systems All other systems reviewed and are negative. Pertinent positives and negatives as per HPI. PAST MEDICAL HISTORY Past Medical History: Diagnosis Date Diabetes mellitus (HCC) Hypertension SURGICAL HISTORY History reviewed. No pertinent surgical history. CURRENT MEDICATIONS Previous Medications AMLODIPINE (NORVASC) 5 MG TABLET Take by mouth daily. APIXABAN (ELIQUIS) 5 MG TABLET Take 5 mg by mouth 2 times daily. ATENOLOL (TENORMIN) 50 MG TABLET Take by mouth daily. ATORVASTATIN (LIPITOR) 40 MG TABLET Take 40 mg by mouth daily. FENOFIBRATE (TRIGLIDE) 160 MG TABLET Take 160 mg by mouth daily. GABAPENTIN (NEURONTIN) 300 MG CAPSULE Take 300 mg by mouth 2 times daily. GLIMEPIRIDE (AMARYL) 4 MG TABLET Take 4 mg by mouth every morning (before breakfast). GLUCOSE BLOOD TEST STRIP Use as instructed LEVOTHYROXINE (TIROSINT) 112 MCG CAPSULE Take by mouth every morning (before breakfast). LISINOPRIL 20 MG TABLET Take by mouth daily. METFORMIN (GLUCOPHAGE) 500 MG TABLET Take 1 tablet (500 mg) by mouth 2 times daily (with meals). OXYBUTYNIN (DITROPAN) 5 MG TABLET Take by mouth. ALLERGIES Patient has no known allergies. FAMILY HISTORY No family history on file. SOCIAL HISTORY Social History Socioeconomic History Marital status: Tobacco Use Smoking status: Former Current packs/day: 0.00 Types: Cigarettes Quit date: 1964 Years since quittin.1 Smokeless tobacco: Never Substance and Sexual Activity Alcohol use: Not Currently Drug use: Never SCREENINGS Marlene Coma Scale Best Eye Response: Spontaneous Best Verbal Response: Oriented Best Motor Response: Follows commands Mar[place] Coma Scale Score: 15 PHYSICAL EXAM ED Triage Vitals [09/18/24 1508] Temp Heart Rate Resp BP 36.8 C (98.2 F) 56 20 (!) 141/64 SpO2 Temp Source Heart Rate Source Patient Position 99 % Temporal Monitor -- BP Location FiO2 (%) -- -- Physical Exam Vitals and nursing note reviewed. Constitutional: General: She is not in acute distress. Appearance: Normal appearance. She is not ill-appearing. HENT: Head: Normocephalic. Nose: Nose normal. Mouth/Throat: Mouth: Mucous membranes are dry. Eyes: Conjunctiva/sclera: Conjunctivae normal. Cardiovascular: Rate and Rhythm: Normal rate and regular rhythm. Pulses: Normal pulses. Heart sounds: Normal heart sounds. Pulmonary: Effort: Pulmonary effort is normal. No respiratory distress. Breath sounds: Normal breath sounds. Abdominal: General: There is no distension. Palpations: Abdomen is soft. Tenderness: There is no abdominal tenderness. There is no guarding. Musculoskeletal: General: No tenderness. Right lower leg: Edema present. Left lower leg: Edema present. Skin: General: Skin is warm and dry. Neurological: Mental Status: She is alert and oriented to person, place, and time. Psychiatric: Mood and Affect: Mood normal. Behavior: Behavior normal. DIAGNOSTIC RESULTS Procedures/EKG: EKG was reviewed by myself. Physician EKG interpretation can be found in [facility] RADIOLOGY (Per Emergency Physician): Interpretation per the Radiologist below, if available at the time of this note: No orders to display ED BEDSIDE ULTRASOUND: Performed by ED Physician - none LABS: Labs Reviewed CBC WITH AUTO DIFFERENTIAL - Abnormal Result Value Auto WBC 8.7 RBC 4.06 Hemoglobin 12.5 Hematocrit 38.1 MCV 93.8 MCH 30.8 MCHC 32.8 RDW 13.4 Platelets 245 MPV 11.2 nRBC 0.0 Neutrophils Relative 76.7 Lymphocytes Relative 13.5 (*) Monocytes Relative 7.0 Eosinophils Relative 1.7 Basophils Relative 0.6 Immature Grans % 0.5 Neutrophils Absolute 6.7 Lymphocytes Absolute 1.2 Monocytes Absolute 0.6 Eosinophils Absolute 0.2 Basophils Absolute 0.1 Immature Grans Absolute 0.0 COMPREHENSIVE METABOLIC PANEL - Abnormal SODIUM 132 (*) POTASSIUM 5.6 (*) CHLORIDE 103 CARBON DIOXIDE 18 (*) ANION GAP 11 UREA NITROGEN 33 (*) CREATININE 1.41 (*) GLUCOSE 548 (*) CALCIUM 9.2 AST (SGOT) 20 ALT 16 ALKALINE PHOSPHATASE 102 ALBUMIN 3.6 BILIRUBIN, TOTAL 0.4 TOTAL PROTEIN 7.3 eGFR 36.6 (*) BLOOD GAS, VENOUS - Abnormal pH, Venous 7.320 pCO2, Venous 36.7 pO2, Venous 27.7 HCO3, Venous 18.5 (*) O2 Sat, Venous 46.3 Base Excess, Venous -6.8 (*) Hgb, blood gas 14.6 TCO2, Venous 19.6 (*) Source Of Oxygen Room Air Narrative: Assessment of oxygenation is best done with an arterial blood gas determination. Reference ranges for pO2, bicarbonate, and base excess are for mixed venous blood. Specimens drawn from a peripheral vein will often have higher values. COMPLETE URINALYSIS - Abnormal Color, Urine Colorless Clarity, Urine Clear pH, Urine 5.0 Leukocytes, Urine Negative Nitrite, Urine Positive (*) Protein, Urine Negative Glucose, Urine >1,000 (*) Bilirubin, Urine Negative Ketones, Urine Negative Urobilinogen, Urine Normal Blood, Urine Negative RBC, Urine 0-2 WBC, Urine 3-5 Squamous Epithelial, Urine 0-2 Bacteria, Urine Moderate (*) SPECIFIC GRAVITY OF URINE (NUMERIC) 1.024 POCT GLUCOSE METER UNSOLICITED RESULTS - Abnormal Glucose >450 (*) Narrative: Performed by: [facility], [address] [place] [id number] CLIA ID: [id number] POCT GLUCOSE METER UNSOLICITED RESULTS - Abnormal Glucose >450 (*) Narrative: Performed by: [facility], [address] [place] [address] CLIA ID: [id number] POCT GLUCOSE METER UNSOLICITED RESULTS - Abnormal Glucose >450 (*) Narrative: Performed by: [facility], [address] [place] [id number] CLIA ID: [id number] BETA HYDROXYBUTYRATE - Normal BETA HYDROXYBUTYRATE 2.7 COMPLETE URINALYSIS WITH REFLEX TO CULTURE Narrative: The following orders were created for panel order Urinalysis Complete with reflex to Culture. Procedure Abnormality Status --------- ------ Complete Urinalysis[[id number]] Abnormal Final result Please view results for these tests on the individual orders. GLUCOSE, RANDOM POCT GLUCOSE METER POCT GLUCOSE METER POCT GLUCOSE METER POCT GLUCOSE METER POCT GLUCOSE METER All other labs were within normal range or not returned as of this dictation. EMERGENCY DEPARTMENT COURSE and DIFFERENTIAL DIAGNOSIS/MDM: Vitals: Vitals: 09/18/24 1508 09/18/24 1709 BP: (!) 141/64 (!) 152/88 Pulse: 56 56 Resp: 20 16 Temp: 36.8 C (98.2 F) TempSrc: Temporal SpO2: 99% 100% Patient presents to the ED for evaluation of elevated blood glucose as described in HPI. Was seen in the ED yesterday where she was found to have DKA light per hospital criteria. Patient refused admission. Was treated with insulin and IV fluids in the ED. Initially found to have elevated potassium on labs but back to normal range on repeat labs after therapy in the ED. Patient returns today due to uncontrolled blood sugars again. Workup today shows elevated blood glucose but no beta hydroxybutyrate elevation nor acid-base disturbance. Hyperkalemia again here in the ED. Treatment with IV fluids and insulin in the ED. Urinalysis shows evidence urinary tract infection. Possibly contributing factor for her family reporting some increased confusion from baseline as well as possibly explaining her suddenly poorly controlled diabetes. Patient be admitted for continued evaluation and management. Rocephin initiated in the ED for the UTI. Urine cultures pending. Patient is not meeting any sepsis/SIRS criteria. Diagnoses as of 09/18/24 1736 Hyperkalemia Urinary tract infection without hematuria, site unspecified Uncontrolled type 2 diabetes mellitus with hyperglycemia (HCC) Medications glucose oral gel 15 g (has no administration in time range) dextrose 50 % solution 12.5 g (has no administration in time range) glucagon (human recombinant) injection 1 mg (has no administration in time range) dextrose 5 % infusion (has no administration in time range) glucose oral gel 15 g (has no administration in time range) dextrose 50 % solution 12.5 g (has no administration in time range) glucagon (human recombinant) injection 1 mg (has no administration in time range) dextrose 5 % infusion (has no administration in time range) cefTRIAXone (Rocephin) 1,000 mg in sodium chloride 0.9 % 50 mL IVPB Mini-Bag Plus (has no administration in time range) sodium chloride 0.9 % bolus 1,000 mL (1,000 mL IntraVENous New Bag 09/18/24 1618) insulin regular (HumuLIN R,NovoLIN R) injection 9 Units (9 Units IntraVENous Given 09/18/24 1700) REVAL: CRITICAL CARE TIME None CONSULTS: None PROCEDURES: Unless otherwise noted below, none Procedures Patients symptoms are consistent with sepsis, severe sepsis, or septic shock (If yes use ".sepsiscoremeasure"): No FINAL IMPRESSION 1. Uncontrolled type 2 diabetes mellitus with hyperglycemia (HCC) 2. Hyperkalemia 3. Urinary tract infection without hematuria, site unspecified DISPOSITION Admit 09/18/2024 04:57:50 PM PATIENT REFERRED TO: No follow-up provider specified. DISCHARGE MEDICATIONS: New Prescriptions No medications on file (Comment: Please note this report has been produced using speech recognition software and may contain errors related to that system including errors in grammar, punctuation, and spelling, as well as words and phrases that may be inappropriate. If there are any questions or concerns please feel freeto contact the dictating provider for clarification.) Janet Niño MD (electronically signed) Emergency Medicine Provider Janet Niño MD 09/18/24 1738 [id number] Discharge [facility]* Discharge Instructions* Damian Loza DO - 09/17/2024 3:10 PM EST You have an appointment scheduled with Dr Chance on 11/09/24 at 9:30am [address] [place] [id number] Return to the ER if your sugar remains elevated or if you have weakness, vomiting, abdominal pain or other concerning symptoms. documented in this [facility]02-06-2025 Emergency department Note* Keisha Pleitez RN - 09/17/2024 12:47 PM EST Lab called with alert high blood sugar of 613. Physician aware. [id number] Note* Keisha Pleitez RN - 09/17/2024 12:47 PM EST Lab called with alert high blood sugar of 613. Physician aware. * Damian Loza DO - 09/17/2024 11:59 AM EST EMERGENCY DEPARTMENT ENCOUNTER Pt Name: Hanna Nelson Birthdate 1940 Date of evaluation: 09/17/2024 ED Provider: Damian Loza DO CHIEF COMPLAINT Chief Complaint Patient presents with Hyperglycemia HISTORY OF PRESENT ILLNESS (Location/Symptom, Timing/Onset, Context/Setting, Quality, Duration, Modifying Factors, Severity) Note limiting factors. I wore appropriate PPE for the entirety of this encounter. HPI Hanna Nelson is a 84 y.o. who presents to the emergency department with chief complaint of hyperglycemia. Patient is a type II diabetic, not on insulin. Recently moved to this area and has not yet establish care with a PCP. First appointment is in a couple months. States that she checks her bloodglucose infrequently but when her son checked it today the monitor read "high". He made her come [facility] ER and patient states she would not be here otherwise. She is asymptomatic. Does endorse recently having cookies, pretzels and ice cream. Nursing Notes were reviewed. Limitations to history: None Outside historians: None REVIEW OF SYSTEMS Review of Systems Pertinent positives and negatives as per HPI. PAST MEDICAL HISTORY Past Medical History: Diagnosis Date Diabetes mellitus (HCC) Hypertension SURGICAL HISTORY History reviewed. No pertinent surgical history. CURRENT MEDICATIONS Discharge Medication List as of 09/17/2024 3:29 PM CONTINUE these medications which have NOT CHANGED Details amLODIPine (Norvasc) 5 MG tablet Take by mouth daily., Historical Med apixaban (Eliquis) 5 MG tablet Take 5 mg by mouth 2 times daily., Historical Med atenolol (Tenormin) 50 MG tablet Take by mouth daily., Historical Med atorvastatin (Lipitor) 40 MG tablet Take 40 mg by mouth daily., Historical Med fenofibrate (Triglide) 160 MG tablet Take 160 mg by mouth daily., Historical Med gabapentin (Neurontin) 300 MG capsule Take 300 mg by mouth 2 times daily., Historical Med glimepiride (Amaryl) 4 MG tablet Take 4 mg by mouth every morning (before breakfast)., Historical Med levothyroxine (Tirosint) 112 MCG capsule Take by mouth every morning (before breakfast)., Historical Med lisinopril 20 MG tablet Take by mouth daily., Historical Med oxybutynin (Ditropan) 5 MG tablet Take by mouth., Historical Med ALLERGIES Patient has no known allergies. FAMILY HISTORY No family history on file. SOCIAL HISTORY Social History Socioeconomic History Marital status: SCREENINGS PHYSICAL EXAM ED Triage Vitals Temp Heart Rate Resp BP 09/17/24 1204 09/17/24 1204 09/17/24 1204 09/17/24 1206 36.6 C (97.8 F) 90 14 (!) 132/94 SpO2 Temp Source Heart Rate Source Patient Position 09/17/24 1204 09/17/24 1204 -- -- 100 % Oral BP Location FiO2 (%) -- -- Physical Exam Vitals and nursing note reviewed. Constitutional: General: She is not in acute distress. Appearance: She is well-developed. She is not ill-appearing or toxic-appearing. HENT: Head: Normocephalic and atraumatic. Nose: Nose normal. Eyes: Extraocular Movements: Extraocular movements intact. Cardiovascular: Pulses: Normal pulses. Pulmonary: Effort: Pulmonary effort is normal. No respiratory distress. Abdominal: General: There is no distension. Palpations: Abdomen is soft. Tenderness: There is no abdominal tenderness. Musculoskeletal: General: Normal range of motion. Cervical back: Normal range of motion and neck supple. Skin: General: Skin is warm and dry. Capillary Refill: Capillary refill takes less than 2 seconds. Neurological: General: No focal deficit present. Mental Status: She is alert. Mental status is at baseline. DIAGNOSTIC RESULTS RADIOLOGY (Per Emergency Physician): Interpretation per the Radiologist below, if available at the time of this note: No orders to display ED BEDSIDE ULTRASOUND: Performed by ED Physician - none LABS: Labs Reviewed BASIC METABOLIC PANEL - Abnormal Result Value SODIUM 128 (*) POTASSIUM 5.8 (*) CHLORIDE 98 CARBON DIOXIDE 20 (*) UREA NITROGEN 25 (*) CREATININE 1.49 (*) GLUCOSE 613 (*) CALCIUM 9.6 ANION GAP 10 eGFR 34.3 (*) BETA HYDROXYBUTYRATE - Abnormal BETA HYDROXYBUTYRATE 3.9 (*) GLUCOSE, RANDOM - Abnormal GLUCOSE 539 (*) Narrative: A normal fasting glucose concentration is less than 100 mg/dL. An impaired fasting glucose concentration is 100-125 mg/dL. A provisional diagnosis of diabetes mellitus can be made when a fasting glucose concentration is greater than 125 mg/dL. BASIC METABOLIC PANEL - Abnormal SODIUM 133 (*) POTASSIUM 4.8 CHLORIDE 104 CARBON DIOXIDE 22 (*) UREA NITROGEN 22 CREATININE 1.22 (*) GLUCOSE 484 (*) CALCIUM 8.9 ANION GAP 7 eGFR 43.6 (*) POCT GLUCOSE METER UNSOLICITED RESULTS - Abnormal Glucose >450 (*) Narrative: [facility]: [facility], [address] [place] [address] CLIA ID: [id number] POCT GLUCOSE METER UNSOLICITED RESULTS - Abnormal Glucose >450 (*) Narrative: Performed by: [facility], [address] [place] [address] CLIA ID: [id number] GLUCOSE, RANDOM All other labs were within normal range or not returned as of this dictation. EMERGENCY DEPARTMENT COURSE and DIFFERENTIAL DIAGNOSIS/MDM: Vitals: Vitals: 09/17/24 1204 09/17/24 1206 09/17/24 1320 BP: (!) 132/94 132/75 Pulse: 90 75 Resp: 14 14 Temp: 36.6 C (97.8 F) TempSrc: Oral SpO2: 100% 100% Weight: 90.7 kg (200 lb) Height: 1.778 m (5' 10") ED Course as of 09/17/24 1602 Renee Sep 17, 2024 130 ANION GAP: 10 [MJ] ED Course User Index [MJ] Damian Loza DO Diagnoses as of 09/17/24 1602 Hyperglycemia The patient presented with chief complaint of hyperglycemia. The differential diagnosis associated with this patient's presentation includes hyperglycemia, DKA. Our workup consisted of ordering/reviewing: Labs. Patient is in agreement with this plan. Medications glucose oral gel 15 g (has no administration in time range) dextrose 50 % solution 12.5 g (has no administration in time range) glucagon (human recombinant) injection 1 mg (has no administration in time range) dextrose 5 % infusion (has no administration in time range) sodium chloride 0.9 % bolus 1,000 mL (0 mL IntraVENous Stopped 09/17/24 1315) lactated ringers bolus 1,000 mL (0 mL IntraVENous Stopped 09/17/24 1500) insulin regular (HumuLIN R,NovoLIN R) injection 9 Units (9 Units SubCUTAneous Given 09/17/24 1316) insulin glargine (Lantus) injection 5 Units (5 Units SubCUTAneous Given 09/17/24 1533) REVAL: Well-appearing 84-year-old female presenting to the ED for hyperglycemia. Patient denies symptoms. Her vitals are stable. A BMP shows a hyperglycemia of 613. She does have an NAYELY and bicarb is 20. Nogap. Corrected sodium is normal. Beta hydroxybutyrate is 3.9. Patient does not want to be hospitalized for DKA due to multiple illnesses in the hospital and does not want to get sick. Given that she meets criteria for DKA light, she was given 2 L of IV fluids and 0.1 units/kg of regular insulin and1 dose of Lantus. Her BMP was reevaluated and her glucose has down trended to 484, her NAYELY is improving as is her bicarb. Patient remained asymptomatic and family is at the bedside. We discussed results and plan for discharge home with PCP follow-up. A referral was placed and we were able to schedule an appointment for her to establish care with her PCP in October. In the meantime she will continuewith her glimepiride at home and double her metformin from 500 mg once daily to twice daily. She was given a prescription for glucose monitor to keep a log of her glucose twice daily. Family will help patient with monitoring and if she continues to have hyperglycemia or if she develops any symptomsshe will return to the ER for evaluation. Patient and family are comfortable to be discharged home with this plan. CRITICAL CARE TIME CONSULTS: None PROCEDURES: Unless otherwise noted below, none Procedures Patients symptoms are consistent with sepsis, severe sepsis, or septic shock (If yes use ".sepsiscoremeasure"): FINAL IMPRESSION 1. Hyperglycemia DISPOSITION Discharge 09/17/2024 03:26:56 PM PATIENT REFERRED TO: No follow-up provider specified. DISCHARGE MEDICATIONS: Discharge Medication List as of 09/17/2024 3:29 PM START taking these medications Details glucose blood test strip Use as instructed, Normal (Comment: Please note this report has been produced using speech recognition software and may contain errors related to that system including errors in grammar, punctuation, and spelling, as well as words and phrases that may be inappropriate. If there are any questions or concerns please feel freeto contact the dictating provider for clarification.) Damian Loza DO (electronically signed) Emergency Medicine Provider Damian Loza DO 09/17/24 4487 Damian Loza DO 09/17/24 1606 * Keisha Pleitez RN - 09/17/2024 11:59 AM EST Brought by son for high blood sugar readings today. Pt with no complaints. States has had breakfast, cookies, pretzels and ice cream today. Alert and oriented to self and place only-not new per family. Blood sugar 581 documented in this [facility]02-06-2025 Emergency department Triage note* Keisha Pleitez RN - 09/17/2024 11:59 AM EST Brought by son for high blood sugar readings today. Pt with no complaints. States has had breakfast, cookies, pretzels and ice cream today. Alert and oriented to self and place only-not new per family. Blood sugar 581 [id number] Emergency department Note* Damian Loza DO - 09/17/2024 11:59 AM EST EMERGENCY DEPARTMENT ENCOUNTER Pt Name: Hanna Nelson Birthdate 1940 Date of evaluation: 09/17/2024 ED Provider: Damian Loza DO CHIEF COMPLAINT Chief Complaint Patient presents with Hyperglycemia HISTORY OF PRESENT ILLNESS (Location/Symptom, Timing/Onset, Context/Setting, Quality, Duration, Modifying Factors, Severity) Note limiting factors. I wore appropriate PPE for the entirety of this encounter. HPI Hanna Nelson is a 84 y.o. who presents to the emergency department with chief complaint of hyperglycemia. Patient is a type II diabetic, not on insulin. Recently moved to this area and has not yet establish care with a PCP. First appointment is in a couple months. States that she checks her bloodglucose infrequently but when her son checked it today the monitor read "high". He made her come tot ER and patient states she would not be here otherwise. She is asymptomatic. Does endorse recently having cookies, pretzels and ice cream. Nursing Notes were reviewed. Limitations to history: None Outside historians: None REVIEW OF SYSTEMS Review of Systems Pertinent positives and negatives as per HPI. PAST MEDICAL HISTORY Past Medical History: Diagnosis Date Diabetes mellitus (HCC) Hypertension SURGICAL HISTORY History reviewed. No pertinent surgical history. CURRENT MEDICATIONS Discharge Medication List as of 09/17/2024 3:29 PM CONTINUE these medications which have NOT CHANGED Details amLODIPine (Norvasc) 5 MG tablet Take by mouth daily., Historical Med apixaban (Eliquis) 5 MG tablet Take 5 mg by mouth 2 times daily., Historical Med atenolol (Tenormin) 50 MG tablet Take by mouth daily., Historical Med atorvastatin (Lipitor) 40 MG tablet Take 40 mg by mouth daily., Historical Med fenofibrate (Triglide) 160 MG tablet Take 160 mg by mouth daily., Historical Med gabapentin (Neurontin) 300 MG capsule Take 300 mg by mouth 2 times daily., Historical Med glimepiride (Amaryl) 4 MG tablet Take 4 mg by mouth every morning (before breakfast)., Historical Med levothyroxine (Tirosint) 112 MCG capsule Take by mouth every morning (before breakfast)., Historical Med lisinopril 20 MG tablet Take by mouth daily., Historical Med oxybutynin (Ditropan) 5 MG tablet Take by mouth., Historical Med ALLERGIES Patient has no known allergies. FAMILY HISTORY No family history on file. SOCIAL HISTORY Social History Socioeconomic History Marital status: SCREENINGS PHYSICAL EXAM ED Triage Vitals Temp Heart Rate Resp BP 09/17/24 1204 09/17/24 1204 09/17/24 1204 09/17/24 1206 36.6 C (97.8 F) 90 14 (!) 132/94 SpO2 Temp Source Heart Rate Source Patient Position 09/17/24 1204 09/17/24 1204 -- -- 100 % Oral BP Location FiO2 (%) -- -- Physical Exam Vitals and nursing note reviewed. Constitutional: General: She is not in acute distress. Appearance: She is well-developed. She is not ill-appearing or toxic-appearing. HENT: Head: Normocephalic and atraumatic. Nose: Nose normal. Eyes: Extraocular Movements: Extraocular movements intact. Cardiovascular: Pulses: Normal pulses. Pulmonary: Effort: Pulmonary effort is normal. No respiratory distress. Abdominal: General: There is no distension. Palpations: Abdomen is soft. Tenderness: There is no abdominal tenderness. Musculoskeletal: General: Normal range of motion. Cervical back: Normal range of motion and neck supple. Skin: General: Skin is warm and dry. Capillary Refill: Capillary refill takes less than 2 seconds. Neurological: General: No focal deficit present. Mental Status: She is alert. Mental status is at baseline. DIAGNOSTIC RESULTS RADIOLOGY (Per Emergency Physician): Interpretation per the Radiologist below, if available at the time of this note: No orders to display ED BEDSIDE ULTRASOUND: Performed by ED Physician - none LABS: Labs Reviewed BASIC METABOLIC PANEL - Abnormal Result Value SODIUM 128 (*) POTASSIUM 5.8 (*) CHLORIDE 98 CARBON DIOXIDE 20 (*) UREA NITROGEN 25 (*) CREATININE 1.49 (*) GLUCOSE 613 (*) CALCIUM 9.6 ANION GAP 10 eGFR 34.3 (*) BETA HYDROXYBUTYRATE - Abnormal BETA HYDROXYBUTYRATE 3.9 (*) GLUCOSE, RANDOM - Abnormal GLUCOSE 539 (*) Narrative: A normal fasting glucose concentration is less than 100 mg/dL. An impaired fasting glucose concentration is 100-125 mg/dL. A provisional diagnosis of diabetes mellitus can be made when a fasting glucose concentration is greater than 125 mg/dL. BASIC METABOLIC PANEL - Abnormal SODIUM 133 (*) POTASSIUM 4.8 CHLORIDE 104 CARBON DIOXIDE 22 (*) UREA NITROGEN 22 CREATININE 1.22 (*) GLUCOSE 484 (*) CALCIUM 8.9 ANION GAP 7 eGFR 43.6 (*) POCT GLUCOSE METER UNSOLICITED RESULTS - Abnormal Glucose >450 (*) Narrative: Performed by: [facility], [address] [place] [id number] CLIA ID: [id number] POCT GLUCOSE METER UNSOLICITED RESULTS - Abnormal Glucose >450 (*) Narrative: Performed by: [facility], [address] [place] [address] CLIA ID: [id number] GLUCOSE, RANDOM All other labs were within normal range or not returned as of this dictation. EMERGENCY DEPARTMENT COURSE and DIFFERENTIAL DIAGNOSIS/MDM: Vitals: Vitals: 09/17/24 1204 09/17/24 1206 09/17/24 1320 BP: (!) 132/94 132/75 Pulse: 90 75 Resp: 14 14 Temp: 36.6 C (97.8 F) TempSrc: Oral SpO2: 100% 100% Weight: 90.7 kg (200 lb) Height: 1.778 m (5' 10") ED Course as of 09/17/24 1602 Renee Sep 17, 2024 130 ANION GAP: 10 [MJ] ED Course User Index [MJ] Damian Loza DO Diagnoses as of 09/17/24 160 Hyperglycemia The patient presented with chief complaint of hyperglycemia. The differential diagnosis associated with this patient's presentation includes hyperglycemia, DKA. Our workup consisted of ordering/reviewing: Labs. Patient is in agreement with this plan. Medications glucose oral gel 15 g (has no administration in time range) dextrose 50 % solution 12.5 g (has no administration in time range) glucagon (human recombinant) injection 1 mg (has no administration in time range) dextrose 5 % infusion (has no administration in time range) sodium chloride 0.9 % bolus 1,000 mL (0 mL IntraVENous Stopped 09/17/24 1315) lactated ringers bolus 1,000 mL (0 mL IntraVENous Stopped 09/17/24 1500) insulin regular (HumuLIN R,NovoLIN R) injection 9 Units (9 Units SubCUTAneous Given 09/17/24 1316) insulin glargine (Lantus) injection 5 Units (5 Units SubCUTAneous Given 09/17/24 1533) REVAL: Well-appearing 84-year-old female presenting to the ED for hyperglycemia. Patient denies symptoms. Her vitals are stable. A BMP shows a hyperglycemia of 613. She does have an NAYELY and bicarb is 20. Nogap. Corrected sodium is normal. Beta hydroxybutyrate is 3.9. Patient does not want to be hospitalized for DKA due to multiple illnesses in the hospital and does not want to get sick. Given that she meets criteria for DKA light, she was given 2 L of IV fluids and 0.1 units/kg of regular insulin and1 dose of Lantus. Her BMP was reevaluated and her glucose has down trended to 484, her NAYELY is improving as is her bicarb. Patient remained asymptomatic and family is at the bedside. We discussed results and plan for discharge home with PCP follow-up. A referral was placed and we were able to schedule an appointment for her to establish care with her PCP in October. In the meantime she will continuewith her glimepiride at home and double her metformin from 500 mg once daily to twice daily. She was given a prescription for glucose monitor to keep a log of her glucose twice daily. Family will help patient with monitoring and if she continues to have hyperglycemia or if she develops any symptomsshe will return to the ER for evaluation. Patient and family are comfortable to be discharged home with this plan. CRITICAL CARE TIME CONSULTS: None PROCEDURES: Unless otherwise noted below, none Procedures Patients symptoms are consistent with sepsis, severe sepsis, or septic shock (If yes use ".sepsiscoremeasure"): FINAL IMPRESSION 1. Hyperglycemia DISPOSITION Discharge 09/17/2024 03:26:56 PM PATIENT REFERRED TO: No follow-up provider specified. DISCHARGE MEDICATIONS: Discharge Medication List as of 09/17/2024 3:29 PM START taking these medications Details glucose blood test strip Use as instructed, Normal (Comment: Please note this report has been produced using speech recognition software and may contain errors related to that system including errors in grammar, punctuation, and spelling, as well as words and phrases that may be inappropriate. If there are any questions or concerns please feel freeto contact the dictating provider for clarification.) Damian Loza DO (electronically signed) Emergency Medicine Provider Damian Loza DO 09/17/24 1605 Damian oLza DO 09/17/24 1606 [id number] History of Present illness Narrative* Estiven Mcfadden DPM - 03/19/2024 1:30 PM EDT [facility] 03/19/2024 Patient Name: Hanna Nelson : 1940 AGE: [age] year old GENDER: Female Chief Complaint/Reason for Visit Hanna Nelson is a 81 year old female who presents today for wound care of chronic wound on the bottom of the right foot. Nothing new. Assessment/Dermatologic Exam/Plan Assessment -Right lower extremity ulceration down to subcutaneous tissue (Daniels grade 2) -Charcot foot deformity right foot -Type 2 diabetes mellitus with peripheral neuropathy -Abrasion right foot Plan -Patient was seen, evaluated, and treated today. -No signs of infection today. Monitor off antibiotics -Continue with local wound care to the area -Patient still working on picking up new diabetic inserts -Any signs of infection before the next visit go to the emergency room -Follow-up 2 weeks Patient's Problem List Patient Active Problem List Diagnosis Primary hypertension Type 2 diabetes mellitus treated with insulin (HC CODE) Arthritis Hypothyroidism due to acquired atrophy of thyroid Palpitation Hyponatremia Spinal stenosis of lumbar region with neurogenic claudication Paroxysmal atrial fibrillation (HC CODE) Postoperative ileus (HC CODE) Paraparesis (HC CODE) Ataxia Cellulitis Peripheral vascular disease (HC CODE) Cellulitis of right lower leg NAYELY, resolved Mixed hyperlipidemia Education regarding disease process, wound care, pressure relief and elevation discussed with patient today. Time spent with patient and patient care related issues in addition to coordination of patient's care with other physicians/agencies: Discharge Instructions were given to patient, significant other, caregiver, or [facility]. Follow-up Wound Right Foot Plantar (Active) Dressing Status / Change Moist with drainage 03/19/24 1300 Wound Bed Appearance Red 03/19/24 1300 Drainage Amount Moderate 03/19/24 1300 Drainage Appearance Serosanguineous;Brown 03/19/24 1300 Odor None 03/19/24 1300 Wound cleanser Normal saline 03/19/24 1300 Specific Procedures Other (Comment) 07/25/23 1331 Advanced Wound Intervention Photos 03/05/24 1319 Wound length (cm) 0.4 cm 03/19/24 1400 Wound width (cm) 0.7 cm 03/19/24 1400 Wound depth (cm) 0.25 cm 03/19/24 1400 Wound Surface Area (length x width) 0.28 03/19/24 1400 Undermining / Tunneling No 03/05/24 1319 Periwound (surrounding) tissue Calloused 03/19/24 1300 Primary Dressing Collagens;Antimicrobial;Alginate 03/05/24 1359 Secondary Dressing Foam Dressing-Silicone Boarder 03/05/24 1359 Objective Vitals Signs: Visit Vitals BP 154/70 Pulse 64 Temp 96.2 F (35.7 C) Resp 16 OB Status Postmenopausal Smoking Status Former General Exam GENERAL: The patient is in no acute distress. RESP: Nonlabored breathing. No distress. Normal respirations. ABD: benign EXTREMITIES: No signs of infection to the right lower extremity Medications and Allergies No outpatient medications have been marked as taking for the 03/19/24 encounter (Hospital Encounter) with [facility] 4. Allergies Allergen Reactions Tape 1"X5yd [Adhesive Tape] Rash Redness. Avoids. Prefers paper tape Labs: WBC COUNT Date Value Ref Range Status 09/12/2023 8.1 3.5 - 10.9 K/uL Final WBC Count Date Value Ref Range Status 11/12/2023 5.8 3.5 - 10.9 K/uL Final HEMOGLOBIN Date Value Ref Range Status 09/12/2023 12.2 11.2 - 15.7 G/DL Final Hemoglobin Date Value Ref Range Status 11/12/2023 10.6 11.2 - 15.7 g/dL Final HEMATOCRIT Date Value Ref Range Status 09/12/2023 36.8 34.0 - 49.0 % Final Hematocrit Date Value Ref Range Status 11/12/2023 32.0 34.0 - 49.0 % Final PLATELET COUNT Date Value Ref Range Status 09/12/2023 268 140 - 400 K/uL Final Platelet Count Date Value Ref Range Status 11/12/2023 191 140 - 400 K/uL Final SODIUM Date Value Ref Range Status 09/12/2023 138 135 - 148 MEQ/L Final 10/21/2020 135 135 - 148 MEQ/L Sodium Date Value Ref Range Status 11/12/2023 141 135 - 148 mEq/L Final POTASSIUM Date Value Ref Range Status 09/12/2023 4.7 3.4 - 5.3 MEQ/L Final Potassium Date Value Ref Range Status 11/12/2023 4.0 3.4 - 5.3 mEq/L Final CHLORIDE Date Value Ref Range Status 09/12/2023 101 96 - 110 MEQ/L Final Chloride Date Value Ref Range Status 11/12/2023 106 96 - 110 mEq/L Final CARBON DIOXIDE Date Value Ref Range Status 09/12/2023 24 19 - 32 MEQ/L Final Carbon Dioxide Date Value Ref Range Status 11/12/2023 23 19 - 32 mEq/L Final GLUCOSE Date Value Ref Range Status 09/12/2023 186 70 - 99 MG/DL Final Comment: (NOTE) The [place] [employer] recommends the following guidelines: MG/DL <100 = NORMAL GLUCOSE 100-125= IMPAIRED FASTING GLUCOSE >=126 = PROVISIONAL DIAGNOSIS OF DIABETES ADA Workgroup Report, Diabetic Care, volume 40, August 2016 Glucose Date Value Ref Range Status 11/12/2023 148 70 - 99 mg/dL Final POC Glucose Date Value Ref Range Status 11/12/2023 252 70 - 99 mg/dL Final Comment: Use of this test in certain clinical conditions requiring intensive medical intervention/therapy may warrant additional consideration by provider. Test was performed by caregiver. CREATININE Date Value Ref Range Status 09/12/2023 1.1 0.5 - 1.2 MG/DL Final Creatinine Date Value Ref Range Status 11/12/2023 1.0 0.5 - 1.2 mg/dL Final BUN Date Value Ref Range Status 11/12/2023 32 3 - 29 mg/dL Final 09/12/2023 32 3 - 29 MG/DL Final CALCIUM Date Value Ref Range Status 09/12/2023 10.0 8.5 - 10.5 MG/DL Final Calcium Date Value Ref Range Status 11/12/2023 8.8 8.5 - 10.5 mg/dL Final ALBUMIN, SERUM Date Value Ref Range Status 10/16/2020 2.9 3.5 - 5.2 GM/DL Albumin Date Value Ref Range Status 11/12/2023 3.7 3.5 - 5.2 g/dL Final PROTHROMBIN TIME Date Value Ref Range Status 05/15/2019 13.0 11.7 - 13.9 SECONDS Prothrombin Time Date Value Ref Range Status 11/10/2023 13.6 11.7 - 13.9 Sec Final PARTIAL THROMBOPLASTIN TIME Date Value Ref Range Status 05/15/2019 23.3 24.5 - 35.2 SECONDS INR Date Value Ref Range Status 11/10/2023 1.1 0.9 - 1.1 Final 05/15/2019 1.0 0.9 - 1.1 Comment: MODERATE-INTENSITY WARFARIN THERAPY: 2.0-3.0 HIGHER-INTENSITY WARFARIN THERAPY: 3.0-4.0 HEMOGLOBIN A1C Date Value Ref Range Status 09/12/2023 9.0 4.0 - 6.0 % Final Comment: (NOTE) The [place] [employer] recommends the following Guidelines: 5.7-6.4% Indicates increased risk for diabetes (Prediabetes). >6.5% Diagnostic of diabetes. In the absence of unequivocal hyperglycemia, results should be confirmed by repeat test. <7% Glycemic recommendation for non adults with diabetes. [place] [employer], Standards of Medical Care in Diabetes, Volume 40; 2017 Debridement Procedure Note Site of debridement: Right foot Time out performed prior to treatment. Indication: Removal of nonviable tissue, fibrin, and exudates/slough Anesthesia: topical lidocaine per orders when needed Procedure: Excisional debridement was done using a scalpel and/or curette to remove the nonviable tissue and/or slough/exudates and fibrin after patient placed in a comfortable position. Nonexcisional debridement also done using 4x4 gauze and/or irrigation and/or cotton tip applicator. Level of Debridement: Subcutaneous Total area debrided (sqcm): 0.28 Response to procedure: satisfactory Complications: none Post debridement measurements done by RN and reviewed by myself Inocencio Mcfadden DPM [facility] Greater than 50% of the visit was spent counseling the patient regarding: Treatment options, conservative management, proper shoe gear, diabetic foot care, exercise, diet, possible complications, possible outcomes. A total of 22 minutes was spent with the patient. This time included: Obtaining and/or reviewing separately obtained history, performing a medically appropriate examination and/or evaluation, counseling and educating the patient/family/caregiver, independently interpreting results (not separately re ported) and communicating results to the patient/family/caregiver, documenting clinical informationin the electronic or other health record. documented in this encounterMemorial Health [id number] Miscellaneous Notes* Care Plan - Trini Boyce RN - 03/19/2024 1:30 PM EDT SQ debridement completed by CLIFF. Pt tolerated well. Continue current POC. documented in this encounterMemorial Health [id number] Note* Care Plan - Trini Boyce RN - 03/19/2024 1:30 PM EDT SQ debridement completed by CLIFF. Pt tolerated well. Continue current POC. [id number] Discharge instructions* Discharge Instructions * Trini Boyce RN - 03/17/2024 3:38 PM EDT You have been treated at [facility] for reasons of wound healing. WOUND CARE: With Dressing Changes - wash your hands prior to starting and after you finish and dispose of old materials properly. The following wound care procedure has been ordered for you in treating your wound: Wound location: Right plantar foot and right 3rd toe Cleanse with: saline/wound cleanser Apply to wound: collagen powder, alginate Ag Secure with: bordered foam Change Dressing: M-W-F Wear diabetic shoe insert with additional C-felt padding whenever walking. Return: 2 weeks SPECIAL INSTRUCTIONS: Nutrition: Increase dietary protein intake as instructed. Foot Wear: Follow specialty footwear instructions as advised. Off loading/Pressure Reduce: personal diabetic inserts PRECAUTIONS: If any of the following occur, contact [phone] immediately or go to your nearest emergency room!! Fever over 101 degrees Increase in drainage Redness around wound and/or streaking Odor or drainage Increase in pain Increased swelling Bleeding Need for compression bandage changes (slippage, breakthrough drainage) IF YOU ARE A DIABETIC: Gently dry well including between your toes Inspect feet/legs DAILY for skin problems, blisters, etc. Wear socks/stockings at all times Tell us if you need assistance putting on your socks or shoes Elevate your feet often, if swelling reaches your legs Wear compression garments as instructed Call us if you are sick, have a cold or flu HOME MEDICATIONS AT DISCHARGE Warning, if you take acetaminophen products: No more than 3Gms or 3000mg of acetaminophen (Tylenol)should be taken daily (eg. 6 extra-strength Tylenol). Be aware that multiple medications contain tylenol products(eg.vicodin, lortab, percocet, darvocet, and nonaspirin pain relievers). FUTURE VISIT INFORMATION: Call us if you are unable to come, leave a message if unable to speak to a staff member Every effort will be made to keep your scheduled appointment, [facility] In that case we will reschedule your treatments as soon as possible. Your signature verifies that we have reviewed this document and that you understand the importance of the information above and acknowledge receipt of same. Failure to comply with these reminders mayresult in delay of your care and/or termination of treatment. If you have any questions, please call us at [phone] documented in this encounterMemorial Health [id number] History of Present illness Narrative* Estiven Mcfadden DPM - 03/05/2024 1:30 PM EDT [facility] 03/05/2024 Patient Name: Hanna Nelson : 1940 AGE: [age] year old GENDER: Female Chief Complaint/Reason for Visit Hanna Nelson is a 81 year old female who presents today for wound care of chronic wound on the bottom of the right foot. Nothing new. Assessment/Dermatologic Exam/Plan Assessment -Right lower extremity ulceration down to subcutaneous tissue (Daniels grade 2) -Charcot foot deformity right foot -Type 2 diabetes mellitus with peripheral neuropathy -Abrasion right foot Plan -Patient was seen, evaluated, and treated today. -No signs of infection today. Monitor off antibiotics -Continue with local wound care to the area -Patient was told that her new modified diabetic inserts are in, but she forgot to pick them up. Needs to make another appointment to get them. -Any signs of infection before the next visit go to the emergency room -Follow-up 2 weeks Patient's Problem List Patient Active Problem List Diagnosis Primary hypertension Type 2 diabetes mellitus treated with insulin (HC CODE) Arthritis Hypothyroidism due to acquired atrophy of thyroid Palpitation Hyponatremia Spinal stenosis of lumbar region with neurogenic claudication Paroxysmal atrial fibrillation (HC CODE) Postoperative ileus (HC CODE) Paraparesis (HC CODE) Ataxia Cellulitis Peripheral vascular disease (HC CODE) Cellulitis of right lower leg NAYELY, resolved Mixed hyperlipidemia Education regarding disease process, wound care, pressure relief and elevation discussed with patient today. Time spent with patient and patient care related issues in addition to coordination of patient's care with other physicians/agencies: Discharge Instructions were given to patient, significant other, caregiver, or [facility]PO[facility]. Follow-up Wound Right Foot Plantar (Active) Dressing Status / Change Moist with drainage 03/05/24 1319 Wound Bed Appearance Red 03/05/24 1319 Drainage Amount Moderate 03/05/24 1319 Drainage Appearance Serosanguineous 03/05/24 1319 Odor None 03/05/24 1319 Wound cleanser Normal saline 03/05/24 1319 Specific Procedures Other (Comment) 07/25/23 1331 Advanced Wound Intervention Photos 03/05/24 1319 Wound length (cm) 0.5 cm 03/05/24 1359 Wound width (cm) 0.5 cm 03/05/24 1359 Wound depth (cm) 0.25 cm 03/05/24 1359 Wound Surface Area (length x width) 0.25 03/05/24 1359 Undermining / Tunneling No 03/05/24 1319 Periwound (surrounding) tissue Calloused;Macerated 03/05/24 1319 Primary Dressing Collagens;Antimicrobial;Alginate 03/05/24 1359 Secondary Dressing Foam Dressing-Silicone Boarder 03/05/24 1359 Objective Vitals Signs: Visit Vitals BP 137/60 Pulse 67 Temp 96.3 F (35.7 C) Resp 16 OB Status Postmenopausal Smoking Status Former General Exam GENERAL: The patient is in no acute distress. RESP: Nonlabored breathing. No distress. Normal respirations. ABD: benign EXTREMITIES: No signs of infection to the right lower extremity Medications and Allergies No outpatient medications have been marked as taking for the 03/05/24 encounter (Hospital Encounter)with [facility] 4. Allergies Allergen Reactions Tape 1"X5yd [Adhesive Tape] Rash Redness. Avoids. Prefers paper tape Labs: WBC COUNT Date Value Ref Range Status 09/12/2023 8.1 3.5 - 10.9 K/uL Final WBC Count Date Value Ref Range Status 11/12/2023 5.8 3.5 - 10.9 K/uL Final HEMOGLOBIN Date Value Ref Range Status 09/12/2023 12.2 11.2 - 15.7 G/DL Final Hemoglobin Date Value Ref Range Status 11/12/2023 10.6 11.2 - 15.7 g/dL Final HEMATOCRIT Date Value Ref Range Status 09/12/2023 36.8 34.0 - 49.0 % Final Hematocrit Date Value Ref Range Status 11/12/2023 32.0 34.0 - 49.0 % Final PLATELET COUNT Date Value Ref Range Status 09/12/2023 268 140 - 400 K/uL Final Platelet Count Date Value Ref Range Status 11/12/2023 191 140 - 400 K/uL Final SODIUM Date Value Ref Range Status 09/12/2023 138 135 - 148 MEQ/L Final 10/21/2020 135 135 - 148 MEQ/L Sodium Date Value Ref Range Status 11/12/2023 141 135 - 148 mEq/L Final POTASSIUM Date Value Ref Range Status 09/12/2023 4.7 3.4 - 5.3 MEQ/L Final Potassium Date Value Ref Range Status 11/12/2023 4.0 3.4 - 5.3 mEq/L Final CHLORIDE Date Value Ref Range Status 09/12/2023 101 96 - 110 MEQ/L Final Chloride Date Value Ref Range Status 11/12/2023 106 96 - 110 mEq/L Final CARBON DIOXIDE Date Value Ref Range Status 09/12/2023 24 19 - 32 MEQ/L Final Carbon Dioxide Date Value Ref Range Status 11/12/2023 23 19 - 32 mEq/L Final GLUCOSE Date Value Ref Range Status 09/12/2023 186 70 - 99 MG/DL Final Comment: (NOTE) The [place] [employer] recommends the following guidelines: MG/DL <100 = NORMAL GLUCOSE 100-125= IMPAIRED FASTING GLUCOSE >=126 = PROVISIONAL DIAGNOSIS OF DIABETES ADA Workgroup Report, Diabetic Care, volume 40August 2016 Glucose Date Value Ref Range Status 11/12/2023 148 70 - 99 mg/dL Final POC Glucose Date Value Ref Range Status 11/12/2023 252 70 - 99 mg/dL Final Comment: Use of this test in certain clinical conditions requiring intensive medical intervention/therapy may warrant additional consideration by provider. Test was performed by caregiver. CREATININE Date Value Ref Range Status 09/12/2023 1.1 0.5 - 1.2 MG/DL Final Creatinine Date Value Ref Range Status 11/12/2023 1.0 0.5 - 1.2 mg/dL Final BUN Date Value Ref Range Status 11/12/2023 32 3 - 29 mg/dL Final 09/12/2023 32 3 - 29 MG/DL Final CALCIUM Date Value Ref Range Status 09/12/2023 10.0 8.5 - 10.5 MG/DL Final Calcium Date Value Ref Range Status 11/12/2023 8.8 8.5 - 10.5 mg/dL Final ALBUMIN, SERUM Date Value Ref Range Status 10/16/2020 2.9 3.5 - 5.2 GM/DL Albumin Date Value Ref Range Status 11/12/2023 3.7 3.5 - 5.2 g/dL Final PROTHROMBIN TIME Date Value Ref Range Status 05/15/2019 13.0 11.7 - 13.9 SECONDS Prothrombin Time Date Value Ref Range Status 11/10/2023 13.6 11.7 - 13.9 Sec Final PARTIAL THROMBOPLASTIN TIME Date Value Ref Range Status 05/15/2019 23.3 24.5 - 35.2 SECONDS INR Date Value Ref Range Status 11/10/2023 1.1 0.9 - 1.1 Final 05/15/2019 1.0 0.9 - 1.1 Comment: MODERATE-INTENSITY WARFARIN THERAPY: 2.0-3.0 HIGHER-INTENSITY WARFARIN THERAPY: 3.0-4.0 HEMOGLOBIN A1C Date Value Ref Range Status 09/12/2023 9.0 4.0 - 6.0 % Final Comment: (NOTE) The [place] [employer] recommends the following Guidelines: 5.7-6.4% Indicates increased risk for diabetes (Prediabetes). >6.5% Diagnostic of diabetes. In the absence of unequivocal hyperglycemia, results should be confirmed by repeat test. <7% Glycemic recommendation for non adults with diabetes. [place] [employer], Standards of Medical Care in Diabetes, Volume 40; 2017 Debridement Procedure Note Site of debridement: Right foot Time out performed prior to treatment. Indication: Removal of nonviable tissue, fibrin, and exudates/slough Anesthesia: topical lidocaine per orders when needed Procedure: Excisional debridement was done using a scalpel and/or curette to remove the nonviable tissue and/or slough/exudates and fibrin after patient placed in a comfortable position. Nonexcisional debridement also done using 4x4 gauze and/or irrigation and/or cotton tip applicator. Level of Debridement: Subcutaneous Total area debrided (sqcm): 0.25 Response to procedure: satisfactory Complications: none Post debridement measurements done by RN and reviewed by myself Inocencio Mcfadden DPM [facility] Greater than 50% of the visit was spent counseling the patient regarding: Treatment options, conservative management, proper shoe gear, diabetic foot care, exercise, diet, possible complications, possible outcomes. A total of 22 minutes was spent with the patient. This time included: Obtaining and/or reviewing separately obtained history, performing a medically appropriate examination and/or evaluation, counseling and educating the patient/family/caregiver, independently interpreting results (not separately re ported) and communicating results to the patient/family/caregiver, documenting clinical informationin the electronic or other health record. documented in this encounterMemorial Health [id number] Miscellaneous Notes* Care Plan - Trini Boyce RN - 03/05/2024 1:30 PM EDT Stable. Continue POC. documented in this encounterMemorial Health [id number] Note* Care Plan - Trini Boyce RN - 03/05/2024 1:30 PM EDT Stable. Continue POC. [facility] [id number] Hospital Discharge instructions* Discharge Instructions * Trini Boyce RN - 03/05/2024 11:28 AM EDT You have been treated at [facility] for reasons of wound healing. WOUND CARE: With Dressing Changes - wash your hands prior to starting and after you finish and dispose of old materials properly. The following wound care procedure has been ordered for you in treating your wound: Wound location: Right plantar foot and right 3rd toe Cleanse with: saline/wound cleanser Apply to wound: collagen powder, alginate Ag Secure with: bordered foam Change Dressing: M-W-F Wear diabetic shoe insert with additional C-felt padding whenever walking. Return: 2 weeks SPECIAL INSTRUCTIONS: Nutrition: Increase dietary protein intake as instructed. Foot Wear: Follow specialty footwear instructions as advised. Off loading/Pressure Reduce: personal diabetic inserts PRECAUTIONS: If any of the following occur, contact [phone] immediately or go to your nearest emergency room!! Fever over 101 degrees Increase in drainage Redness around wound and/or streaking Odor or drainage Increase in pain Increased swelling Bleeding Need for compression bandage changes (slippage, breakthrough drainage) IF YOU ARE A DIABETIC: Gently dry well including between your toes Inspect feet/legs DAILY for skin problems, blisters, etc. Wear socks/stockings at all times Tell us if you need assistance putting on your socks or shoes Elevate your feet often, if swelling reaches your legs Wear compression garments as instructed Call us if you are sick, have a cold or flu HOME MEDICATIONS AT DISCHARGE Warning, if you take acetaminophen products: No more than 3Gms or 3000mg of acetaminophen (Tylenol)should be taken daily (eg. 6 extra-strength Tylenol). Be aware that multiple medications contain tylenol products(eg.vicodin, lortab, percocet, darvocet, and nonaspirin pain relievers). FUTURE VISIT INFORMATION: Call us if you are unable to come, leave a message if unable to speak to a staff member Every effort will be made to keep your scheduled appointment, occasionally [facility]. In that case we will reschedule your treatments as soon as possible. Your signature verifies that we have reviewed this document and that you understand the importance of the information above and acknowledge receipt of same. Failure to comply with these reminders mayresult in delay of your care and/or termination of treatment. If you have any questions, please call us at [phone] documented in this encounterMemorial Health [id number] History of Present illness Narrative* Estiven Mcfadden DPM - 01/30/2024 1:45 PM EDT [facility] Wound Care Center 01/30/2024 Patient Name: Hanna Nelson : 1940 AGE: [age] year old GENDER: Female Chief Complaint/Reason for Visit Hanna Nelson is a 81 year old female who presents today for wound care of chronic wound on the bottom of the right foot. Nothing new. Assessment/Dermatologic Exam/Plan Assessment -Right lower extremity ulceration down to subcutaneous tissue (Daniels grade 2) -Charcot foot deformity right foot -Type 2 diabetes mellitus with peripheral neuropathy -Abrasion right foot Plan -Patient was seen, evaluated, and treated today. -No signs of infection today. Monitor off antibiotics -Continue with local wound care to the area -Any signs of infection before the next visit go to the emergency room -Follow-up 4 week for recheck, patient is going on vacation until then Patient's Problem List Patient Active Problem List Diagnosis Primary hypertension Type 2 diabetes mellitus treated with insulin (HC CODE) Arthritis Hypothyroidism due to acquired atrophy of thyroid Palpitation Hyponatremia Spinal stenosis of lumbar region with neurogenic claudication Paroxysmal atrial fibrillation (HC CODE) Postoperative ileus (HC CODE) Paraparesis (HC CODE) Ataxia Cellulitis Peripheral vascular disease (HC CODE) Cellulitis of right lower leg NAYELY, resolved Mixed hyperlipidemia Education regarding disease process, wound care, pressure relief and elevation discussed with patient today. Time spent with patient and patient care related issues in addition to coordination of patient's care with other physicians/agencies: Discharge Instructions were given to patient, significant other, caregiver, or DPO[facility]. Follow-up Wound Right Foot Plantar (Active) Dressing Status / Change Moist with drainage 01/30/24 1300 Wound Bed Appearance [place] 01/30/24 1300 Drainage Amount Moderate 01/30/24 1300 Drainage Appearance Serosanguineous 01/30/24 1300 Odor None 01/30/24 1300 Wound cleanser Body wash / periwash 01/30/24 1300 Specific Procedures Other (Comment) 07/25/23 1331 Advanced Wound Intervention Photos 01/09/24 1400 Wound length (cm) 0.4 cm 01/30/24 1400 Wound width (cm) 0.5 cm 01/30/24 1400 Wound depth (cm) 0.25 cm 01/30/24 1400 Wound Surface Area (length x width) 0.2 01/30/24 1400 Undermining / Tunneling Yes 11/14/23 1300 Periwound (surrounding) tissue Calloused;Macerated 01/30/24 1300 Primary Dressing Other (Comment);Collagens;Alginate;Antimicrobial;Foam Dressing- Silicone Border 01/30/24 1400 Secondary Dressing Foam Dressing-Silicone Boarder 01/09/24 1419 Objective Vitals Signs: Visit Vitals BP 123/75 Pulse 107 Temp 96.3 F (35.7 C) Resp 16 OB Status Postmenopausal Smoking Status Former General Exam GENERAL: The patient is in no acute distress. RESP: Nonlabored breathing. No distress. Normal respirations. ABD: benign EXTREMITIES: Edema noted to the right lower extremity increased improved to previous. No erythema today. No crepitus fluctuance drainage malodor or probe to bone. Medications and Allergies No outpatient medications have been marked as taking for the 01/30/24 encounter (Hospital Encounter)with [facility] 5. Allergies Allergen Reactions Tape 1"X5yd [Adhesive Tape] Rash Redness. Avoids. Prefers paper tape Labs: WBC COUNT Date Value Ref Range Status 09/12/2023 8.1 3.5 - 10.9 K/uL Final WBC Count Date Value Ref Range Status 11/12/2023 5.8 3.5 - 10.9 K/uL Final HEMOGLOBIN Date Value Ref Range Status 09/12/2023 12.2 11.2 - 15.7 G/DL Final Hemoglobin Date Value Ref Range Status 11/12/2023 10.6 11.2 - 15.7 g/dL Final HEMATOCRIT Date Value Ref Range Status 09/12/2023 36.8 34.0 - 49.0 % Final Hematocrit Date Value Ref Range Status 11/12/2023 32.0 34.0 - 49.0 % Final PLATELET COUNT Date Value Ref Range Status 09/12/2023 268 140 - 400 K/uL Final Platelet Count Date Value Ref Range Status 11/12/2023 191 140 - 400 K/uL Final SODIUM Date Value Ref Range Status 09/12/2023 138 135 - 148 MEQ/L Final 10/21/2020 135 135 - 148 MEQ/L Sodium Date Value Ref Range Status 11/12/2023 141 135 - 148 mEq/L Final POTASSIUM Date Value Ref Range Status 09/12/2023 4.7 3.4 - 5.3 MEQ/L Final Potassium Date Value Ref Range Status 11/12/2023 4.0 3.4 - 5.3 mEq/L Final CHLORIDE Date Value Ref Range Status 09/12/2023 101 96 - 110 MEQ/L Final Chloride Date Value Ref Range Status 11/12/2023 106 96 - 110 mEq/L Final CARBON DIOXIDE Date Value Ref Range Status 09/12/2023 24 19 - 32 MEQ/L Final Carbon Dioxide Date Value Ref Range Status 11/12/2023 23 19 - 32 mEq/L Final GLUCOSE Date Value Ref Range Status 09/12/2023 186 70 - 99 MG/DL Final Comment: (NOTE) The [place] [employer] recommends the following guidelines: MG/DL <100 = NORMAL GLUCOSE 100-125= IMPAIRED FASTING GLUCOSE >=126 = PROVISIONAL DIAGNOSIS OF DIABETES ADA Workgroup Report, Diabetic Care, volume 40, August 2016 Glucose Date Value Ref Range Status 11/12/2023 148 70 - 99 mg/dL Final POC Glucose Date Value Ref Range Status 11/12/2023 252 70 - 99 mg/dL Final Comment: Use of this test in certain clinical conditions requiring intensive medical intervention/therapy may warrant additional consideration by provider. Test was performed by caregiver. CREATININE Date Value Ref Range Status 09/12/2023 1.1 0.5 - 1.2 MG/DL Final Creatinine Date Value Ref Range Status 11/12/2023 1.0 0.5 - 1.2 mg/dL Final BUN Date Value Ref Range Status 11/12/2023 32 3 - 29 mg/dL Final 09/12/2023 32 3 - 29 MG/DL Final CALCIUM Date Value Ref Range Status 09/12/2023 10.0 8.5 - 10.5 MG/DL Final Calcium Date Value Ref Range Status 11/12/2023 8.8 8.5 - 10.5 mg/dL Final ALBUMIN, SERUM Date Value Ref Range Status 10/16/2020 2.9 3.5 - 5.2 GM/DL Albumin Date Value Ref Range Status 11/12/2023 3.7 3.5 - 5.2 g/dL Final PROTHROMBIN TIME Date Value Ref Range Status 05/15/2019 13.0 11.7 - 13.9 SECONDS Prothrombin Time Date Value Ref Range Status 11/10/2023 13.6 11.7 - 13.9 Sec Final PARTIAL THROMBOPLASTIN TIME Date Value Ref Range Status 05/15/2019 23.3 24.5 - 35.2 SECONDS INR Date Value Ref Range Status 11/10/2023 1.1 0.9 - 1.1 Final 05/15/2019 1.0 0.9 - 1.1 Comment: MODERATE-INTENSITY WARFARIN THERAPY: 2.0-3.0 HIGHER-INTENSITY WARFARIN THERAPY: 3.0-4.0 HEMOGLOBIN A1C Date Value Ref Range Status 09/12/2023 9.0 4.0 - 6.0 % Final Comment: (NOTE) The [place] [employer] recommends the following Guidelines: 5.7-6.4% Indicates increased risk for diabetes (Prediabetes). >6.5% Diagnostic of diabetes. In the absence of unequivocal hyperglycemia, results should be confirmed by repeat test. <7% Glycemic recommendation for non adults with diabetes. [place] [employer], Standards of Medical Care in Diabetes, Volume 40; 2017 Debridement Procedure Note Site of debridement: Right foot Time out performed prior to treatment. Indication: Removal of nonviable tissue, fibrin, and exudates/slough Anesthesia: topical lidocaine per orders when needed Procedure: Excisional debridement was done using a scalpel and/or curette to remove the nonviable tissue and/or slough/exudates and fibrin after patient placed in a comfortable position. Nonexcisional debridement also done using 4x4 gauze and/or irrigation and/or cotton tip applicator. Level of Debridement: Subcutaneous Total area debrided (sqcm): 0.2 Response to procedure: satisfactory Complications: none Post debridement measurements done by RN and reviewed by myself Inocencio Mcfadden DPM [facility] Greater than 50% of the visit was spent counseling the patient regarding: Treatment options, conservative management, proper shoe gear, diabetic foot care, exercise, diet, possible complications, possible outcomes. A total of 22 minutes was spent with the patient. This time included: Obtaining and/or reviewing separately obtained history, performing a medically appropriate examination and/or evaluation, counseling and educating the patient/family/caregiver, independently interpreting results (not separately re ported) and communicating results to the patient/family/caregiver, documenting clinical informationin the electronic or other health record. documented in this encounterMemorial Health [id number] Miscellaneous Notes* Care Plan - Trini Boyce RN - 01/30/2024 1:45 PM EDT Continue POC. documented in this encounterMemorial Health [id number] Note* Care Plan - Trini Boyce RN - 01/30/2024 1:45 PM EDT Continue POC. [facility] [id number] Hospital Discharge instructions* Discharge Instructions * Trini Boyce RN - 01/28/2024 10:59 AM EDT You have been treated at [facility] for reasons of wound healing. WOUND CARE: With Dressing Changes - wash your hands prior to starting and after you finish and dispose of old materials properly. The following wound care procedure has been ordered for you in treating your wound: Wound location: Right plantar foot and right 3rd toe Cleanse with: saline/wound cleanser Apply to wound: collagen powder, alginate Ag Secure with: bordered foam Change Dressing: M-W-F Wear diabetic shoe insert with additional C-felt padding whenever walking. Return: 4 weeks SPECIAL INSTRUCTIONS: Nutrition: Increase dietary protein intake as instructed. Foot Wear: Follow specialty footwear instructions as advised. Off loading/Pressure Reduce: personal diabetic inserts PRECAUTIONS: If any of the following occur, contact [phone] immediately or go to your nearest emergency room!! Fever over 101 degrees Increase in drainage Redness around wound and/or streaking Odor or drainage Increase in pain Increased swelling Bleeding Need for compression bandage changes (slippage, breakthrough drainage) IF YOU ARE A DIABETIC: Gently dry well including between your toes Inspect feet/legs DAILY for skin problems, blisters, etc. Wear socks/stockings at all times Tell us if you need assistance putting on your socks or shoes Elevate your feet often, if swelling reaches your legs Wear compression garments as instructed Call us if you are sick, have a cold or flu HOME MEDICATIONS AT DISCHARGE Warning, if you take acetaminophen products: No more than 3Gms or 3000mg of acetaminophen (Tylenol)should be taken daily (eg. 6 extra-strength Tylenol). Be aware that multiple medications contain tylenol products(eg.vicodin, lortab, percocet, darvocet, and nonaspirin pain relievers). FUTURE VISIT INFORMATION: Call us if you are unable to come, leave a message if unable to speak to a staff member Every effort will be made to keep your scheduled appointment, [facility] In that case we will reschedule your treatments as soon as possible. Your signature verifies that we have reviewed this document and that you understand the importance of the information above and acknowledge receipt of same. Failure to comply with these reminders mayresult in delay of your care and/or termination of treatment. If you have any questions, please call us at [phone] documented in this encounterMemorial Health [id number] History of Present illness Narrative* Estiven Mcfadden DPM - 01/23/2024 1:30 PM EDT [facility] 01/23/2024 Patient Name: Hanna Nelson : 1940 AGE: [age] year old GENDER: Female Chief Complaint/Reason for Visit Hanna Nelson is a 81 year old female who presents today for wound care of chronic wound on the bottom of the right foot. Nothing new. Had a good time on her vacation to [place]. 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 -No signs of infection today. Monitor off antibiotics -Continue with local wound care to the area -Any signs of infection before the next visit go to the emergency room -Follow-up 1 week for recheck Patient's Problem List Patient Active Problem List Diagnosis Primary hypertension Type 2 diabetes mellitus treated with insulin (HC CODE) Arthritis Hypothyroidism due to acquired atrophy of thyroid Palpitation Hyponatremia Spinal stenosis of lumbar region with neurogenic claudication Paroxysmal atrial fibrillation (HC CODE) Postoperative ileus (HC CODE) Paraparesis (HC CODE) Ataxia Cellulitis Peripheral vascular disease (HC CODE) Cellulitis of right lower leg NAYELY, resolved Mixed hyperlipidemia Education regarding disease process, wound care, pressure relief and elevation discussed with patient today. Time spent with patient and patient care related issues in addition to coordination of patient's care with other physicians/agencies: Discharge Instructions were given to patient, significant other, caregiver, or DPO[facility]. Follow-up Wound Right Foot Plantar (Active) Dressing Status / Change Moist with drainage 01/23/24 1300 Wound Bed Appearance [place] 01/23/24 1300 Drainage Amount Moderate 01/23/24 1300 Drainage Appearance Serosanguineous 01/23/24 1300 Odor None 01/23/24 1300 Wound cleanser Normal saline 01/23/24 1300 Specific Procedures Other (Comment) 07/25/23 1331 Advanced Wound Intervention Photos 01/09/24 1400 Wound length (cm) 0.4 cm 01/23/24 1400 Wound width (cm) 0.8 cm 01/23/24 1400 Wound depth (cm) 0.2 cm 01/23/24 1400 Wound Surface Area (length x width) 0.32 01/23/24 1400 Undermining / Tunneling Yes 11/14/23 1300 Periwound (surrounding) tissue Calloused 01/23/24 1300 Primary Dressing Collagens;Alginate;Antimicrobial 01/23/24 1400 Secondary Dressing Foam Dressing-Silicone Boarder 01/09/24 1419 Objective Vitals Signs: Visit Vitals BP 154/70 Pulse 83 Temp 96.9 F (36.1 C) Resp 16 OB Status Postmenopausal Smoking Status Former General Exam GENERAL: The patient is in no acute distress. RESP: Nonlabored breathing. No distress. Normal respirations. ABD: benign EXTREMITIES: Edema noted to the right lower extremity increased improved to previous. No erythema today. No crepitus fluctuance drainage malodor or probe to bone. Medications and Allergies No outpatient medications have been marked as taking for the 01/23/24 encounter (Hospital Encounter)with [facility]. Allergies Allergen Reactions Tape 1"X5yd [Adhesive Tape] Rash Redness. Avoids. Prefers paper tape Labs: WBC COUNT Date Value Ref Range Status 09/12/2023 8.1 3.5 - 10.9 K/uL Final WBC Count Date Value Ref Range Status 11/12/2023 5.8 3.5 - 10.9 K/uL Final HEMOGLOBIN Date Value Ref Range Status 09/12/2023 12.2 11.2 - 15.7 G/DL Final Hemoglobin Date Value Ref Range Status 11/12/2023 10.6 11.2 - 15.7 g/dL Final HEMATOCRIT Date Value Ref Range Status 09/12/2023 36.8 34.0 - 49.0 % Final Hematocrit Date Value Ref Range Status 11/12/2023 32.0 34.0 - 49.0 % Final PLATELET COUNT Date Value Ref Range Status 09/12/2023 268 140 - 400 K/uL Final Platelet Count Date Value Ref Range Status 11/12/2023 191 140 - 400 K/uL Final SODIUM Date Value Ref Range Status 09/12/2023 138 135 - 148 MEQ/L Final 10/21/2020 135 135 - 148 MEQ/L Sodium Date Value Ref Range Status 11/12/2023 141 135 - 148 mEq/L Final POTASSIUM Date Value Ref Range Status 09/12/2023 4.7 3.4 - 5.3 MEQ/L Final Potassium Date Value Ref Range Status 11/12/2023 4.0 3.4 - 5.3 mEq/L Final CHLORIDE Date Value Ref Range Status 09/12/2023 101 96 - 110 MEQ/L Final Chloride Date Value Ref Range Status 11/12/2023 106 96 - 110 mEq/L Final CARBON DIOXIDE Date Value Ref Range Status 09/12/2023 24 19 - 32 MEQ/L Final Carbon Dioxide Date Value Ref Range Status 11/12/2023 23 19 - 32 mEq/L Final GLUCOSE Date Value Ref Range Status 09/12/2023 186 70 - 99 MG/DL Final Comment: (NOTE) The [place] [employer] recommends the following guidelines: MG/DL <100 = NORMAL GLUCOSE 100-125= IMPAIRED FASTING GLUCOSE >=126 = PROVISIONAL DIAGNOSIS OF DIABETES ADA Workgroup Report, Diabetic Care, volume 40, August 2016 Glucose Date Value Ref Range Status 11/12/2023 148 70 - 99 mg/dL Final POC Glucose Date Value Ref Range Status 11/12/2023 252 70 - 99 mg/dL Final Comment: Use of this test in certain clinical conditions requiring intensive medical intervention/therapy may warrant additional consideration by provider. Test was performed by caregiver. CREATININE Date Value Ref Range Status 09/12/2023 1.1 0.5 - 1.2 MG/DL Final Creatinine Date Value Ref Range Status 11/12/2023 1.0 0.5 - 1.2 mg/dL Final BUN Date Value Ref Range Status 11/12/2023 32 3 - 29 mg/dL Final 09/12/2023 32 3 - 29 MG/DL Final CALCIUM Date Value Ref Range Status 09/12/2023 10.0 8.5 - 10.5 MG/DL Final Calcium Date Value Ref Range Status 11/12/2023 8.8 8.5 - 10.5 mg/dL Final ALBUMIN, SERUM Date Value Ref Range Status 10/16/2020 2.9 3.5 - 5.2 GM/DL Albumin Date Value Ref Range Status 11/12/2023 3.7 3.5 - 5.2 g/dL Final PROTHROMBIN TIME Date Value Ref Range Status 05/15/2019 13.0 11.7 - 13.9 SECONDS Prothrombin Time Date Value Ref Range Status 11/10/2023 13.6 11.7 - 13.9 Sec Final PARTIAL THROMBOPLASTIN TIME Date Value Ref Range Status 05/15/2019 23.3 24.5 - 35.2 SECONDS INR Date Value Ref Range Status 11/10/2023 1.1 0.9 - 1.1 Final 05/15/2019 1.0 0.9 - 1.1 Comment: MODERATE-INTENSITY WARFARIN THERAPY: 2.0-3.0 HIGHER-INTENSITY WARFARIN THERAPY: 3.0-4.0 HEMOGLOBIN A1C Date Value Ref Range Status 09/12/2023 9.0 4.0 - 6.0 % Final Comment: (NOTE) The [place] [employer] recommends the following Guidelines: 5.7-6.4% Indicates increased risk for diabetes (Prediabetes). >6.5% Diagnostic of diabetes. In the absence of unequivocal hyperglycemia, results should be confirmed by repeat test. <7% Glycemic recommendation for non adults with diabetes. [place] [employer], Standards of Medical Care in Diabetes, Volume 40; 2017 Debridement Procedure Note Site of debridement: Right foot Time out performed prior to treatment. Indication: Removal of nonviable tissue, fibrin, and exudates/slough Anesthesia: topical lidocaine per orders when needed Procedure: Excisional debridement was done using a scalpel and/or curette to remove the nonviable tissue and/or slough/exudates and fibrin after patient placed in a comfortable position. Nonexcisional debridement also done using 4x4 gauze and/or irrigation and/or cotton tip applicator. Level of Debridement: Subcutaneous Total area debrided (sqcm): 0.32 Response to procedure: satisfactory Complications: none Post debridement measurements done by RN and reviewed by myself Inocencio Mcfadden DPM [facility] Greater than 50% of the visit was spent counseling the patient regarding: Treatment options, conservative management, proper shoe gear, diabetic foot care, exercise, diet, possible complications, possible outcomes. A total of 22 minutes was spent with the patient. This time included: Obtaining and/or reviewing separately obtained history, performing a medically appropriate examination and/or evaluation, counseling and educating the patient/family/caregiver, independently interpreting results (not separately re ported) and communicating results to the patient/family/caregiver, documenting clinical informationin the electronic or other health record. documented in this encounterMemorial Health [id number] Miscellaneous Notes* Care Plan - Trini Boyce RN - 01/23/2024 1:30 PM EDT Problem: Skin Integrity - Impaired Goal: Decrease in wound size Outcome: Progressing Goal: Skin integrity intact Outcome: Progressing documented in this encounterMemorial Health [id number] Note* Care Plan - Trini Boyce RN - 01/23/2024 1:30 PM EDT Problem: Skin Integrity - Impaired Goal: Decrease in wound size Outcome: Progressing Goal: Skin integrity intact Outcome: Progressing [facility] [id number] NoteProblem: Skin Integrity - Impaired Goal: Decrease in wound size Outcome: Progressing Goal: Skin integrity intact [facility] Discharge instructions* Discharge Instructions* Trini Boyce RN - 01/22/2024 10:27 AM EDT You have been treated at [facility] for reasons of wound healing. WOUND CARE: With Dressing Changes - wash your hands prior to starting and after you finish and dispose of old materials properly. The following wound care procedure has been ordered for you in treating your wound: Wound location: Right plantar foot and right 3rd toe Cleanse with: saline/wound cleanser Apply to wound: collagen powder, alginate Ag Secure with: bordered foam Change Dressing: M-W-F Wear diabetic shoe insert with additional C-felt padding whenever walking. Return: 1 week SPECIAL INSTRUCTIONS: Nutrition: Increase dietary protein intake as instructed. Foot Wear: Follow specialty footwear instructions as advised. Off loading/Pressure Reduce: personal diabetic inserts PRECAUTIONS: If any of the following occur, contact [phone] immediately or go to your nearest emergency room!! Fever over 101 degrees Increase in drainage Redness around wound and/or streaking Odor or drainage Increase in pain Increased swelling Bleeding Need for compression bandage changes (slippage, breakthrough drainage) IF YOU ARE A DIABETIC: Gently dry well including between your toes Inspect feet/legs DAILY for skin problems, blisters, etc. Wear socks/stockings at all times Tell us if you need assistance putting on your socks or shoes Elevate your feet often, if swelling reaches your legs Wear compression garments as instructed Call us if you are sick, have a cold or flu HOME MEDICATIONS AT DISCHARGE Warning, if you take acetaminophen products: No more than 3Gms or 3000mg of acetaminophen (Tylenol)should be taken daily (eg. 6 extra-strength Tylenol). Be aware that multiple medications contain tylenol products(eg.vicodin, lortab, percocet, darvocet, and nonaspirin pain relievers). FUTURE VISIT INFORMATION: Call us if you are unable to come, leave a message if unable to speak to a staff member Every effort will be made to keep your scheduled appointment, [facility]. In that case we will reschedule your treatments as soon as possible. Your signature verifies that we have reviewed this document and that you understand the importance of the information above and acknowledge receipt of same. Failure to comply with these reminders mayresult in delay of your care and/or termination of treatment. If you have any questions, please call us at [phone] documented in this encounterMemorial Health [id number] Hospital Discharge instructions* Discharge Instructions* Trini Boyce RN - 01/09/2024 2:10 PM EDT You have been treated at [facility] for reasons of wound healing. WOUND CARE: With Dressing Changes - wash your hands prior to starting and after you finish and dispose of old materials properly. The following wound care procedure has been ordered for you in treating your wound: Wound location: Right plantar foot and right 3rd toe Cleanse with: saline/wound cleanser Apply to wound: collagen powder, alginate Ag Secure with: bordered foam Change Dressing: M-W-F Wear diabetic shoe insert with additional C-felt padding whenever walking. Return: 2 weeks SPECIAL INSTRUCTIONS: Nutrition: Increase dietary protein intake as instructed. Foot Wear: Follow specialty footwear instructions as advised. Off loading/Pressure Reduce: personal diabetic inserts PRECAUTIONS: If any of the following occur, contact [phone] immediately or go to your nearest emergency room!! Fever over 101 degrees Increase in drainage Redness around wound and/or streaking Odor or drainage Increase in pain Increased swelling Bleeding Need for compression bandage changes (slippage, breakthrough drainage) IF YOU ARE A DIABETIC: Gently dry well including between your toes Inspect feet/legs DAILY for skin problems, blisters, etc. Wear socks/stockings at all times Tell us if you need assistance putting on your socks or shoes Elevate your feet often, if swelling reaches your legs Wear compression garments as instructed Call us if you are sick, have a cold or flu HOME MEDICATIONS AT DISCHARGE Warning, if you take acetaminophen products: No more than 3Gms or 3000mg of acetaminophen (Tylenol)should be taken daily (eg. 6 extra-strength Tylenol). Be aware that multiple medications contain tylenol products(eg.vicodin, lortab, percocet, darvocet, and nonaspirin pain relievers). FUTURE VISIT INFORMATION: Call us if you are unable to come, leave a message if unable to speak to a staff member Every effort will be made to keep your scheduled appointment, occasionally [facility]. In that case we will reschedule your treatments as soon as possible. Your signature verifies that we have reviewed this document and that you understand the importance of the information above and acknowledge receipt of same. Failure to comply with these reminders mayresult in delay of your care and/or termination of treatment. If you have any questions, please call us at [phone] documented in this encounterMemorial Health [id number] Miscellaneous Notes* Care Plan - Trini Boyce RN - 01/09/2024 1:30 PM EDT No wound progression. documented in this encounterMemorial Health [id number] Note* Care Plan - Trini Boyce RN - 01/09/2024 1:30 PM EDT No wound progression. [facility] [id number] History of Present illness Narrative* Estiven Mcfadden DPM - 12/19/2023 12:30 PM EDT [facility] 12/19/2023 Patient Name: Hanna Nelson : 1940 AGE: [age] year old GENDER: Female Chief Complaint/Reason for Visit Hanna Nelson is a 81 year old female who presents today for wound care of chronic wound on the bottom of the right foot. Nothing new. Assessment/Dermatologic Exam/Plan Assessment -Right lower extremity ulceration down to subcutaneous tissue (Daniels grade 2) -Charcot foot deformity right foot -Type 2 diabetes mellitus with peripheral neuropathy -Abrasion right foot Plan -Patient was seen, evaluated, and treated today. -No signs of infection today. Monitor off antibiotics -She still waiting to see when diabetic shoes will be ready for pickup. -Continue with daily local wound care to the area as directed -Patient going to [place] for 10 days. She will be gone for the next couple of weeks -Any signs of infection before the next visit go to the emergency room -Follow-up 3 weeks for recheck Patient's Problem List Patient Active Problem List Diagnosis Primary hypertension Type 2 diabetes mellitus treated with insulin (HC CODE) Arthritis Hypothyroidism due to acquired atrophy of thyroid Palpitation Hyponatremia Spinal stenosis of lumbar region with neurogenic claudication Paroxysmal atrial fibrillation (HC CODE) Postoperative ileus (HC CODE) Paraparesis (HC CODE) Ataxia Cellulitis Peripheral vascular disease (HC CODE) Cellulitis of right lower leg NAYELY, resolved Mixed hyperlipidemia Education regarding disease process, wound care, pressure relief and elevation discussed with patient today. Time spent with patient and patient care related issues in addition to coordination of patient's care with other physicians/agencies: Discharge Instructions were given to patient, significant other, caregiver, or DPOHC. Follow-up Wound Right Foot Plantar (Active) Dressing Status / Change Moist with drainage 12/19/23 1200 Wound Bed Appearance [place] 12/19/23 1200 Drainage Amount Moderate 12/19/23 1200 Drainage Appearance Serosanguineous 12/19/23 1200 Odor None 12/19/23 1200 Wound cleanser Normal saline 12/19/23 1200 Specific Procedures Other (Comment) 07/25/23 1331 Advanced Wound Intervention Photos 12/12/23 1400 Wound length (cm) 0.2 cm 12/19/23 1257 Wound width (cm) 0.7 cm 12/19/23 1257 Wound depth (cm) 0.25 cm 12/19/23 1257 Wound Surface Area (length x width) 0.14 12/19/23 1257 Undermining / Tunneling Yes 11/14/23 1300 Periwound (surrounding) tissue Calloused;Macerated 12/19/23 1200 Primary Dressing Collagens;Alginate;Antimicrobial 12/19/23 1257 Secondary Dressing Foam Dressing-Silicone [place] 12/19/23 1257 Wound Right Toe(s) 3rd Diabetic ulcer (neuropathic) (Active) Dressing Status / Change Moist with medicated soaks 12/19/23 1200 Wound Bed Appearance [place] 12/19/23 1200 Drainage Amount Moderate 12/19/23 1200 Drainage Appearance Yellow 12/19/23 1200 Odor None 12/19/23 1200 Wound cleanser Normal saline 12/19/23 1200 Advanced Wound Intervention Photos 12/12/23 1400 Wound length (cm) 0.2 cm 12/19/23 1257 Wound width (cm) 0.2 cm 12/19/23 1257 Wound depth (cm) 0.1 cm 12/19/23 1257 Wound Surface Area (length x width) 0.04 12/19/23 1257 Periwound (surrounding) tissue Macerated 12/19/23 1200 Primary Dressing Collagens;Alginate;Antimicrobial 12/19/23 1257 Secondary Dressing Foam Dressing-Silicone Board[place] 12/19/23 1257 Objective Vitals Signs: Visit Vitals BP 165/70 Pulse 72 Temp 97.9 F (36.6 C) Resp 16 OB Status Postmenopausal Smoking Status Former General Exam GENERAL: The patient is in no acute distress. RESP: Nonlabored breathing. No distress. Normal respirations. ABD: benign EXTREMITIES: Edema noted to the right lower extremity increased improved to previous. No erythema today. No crepitus fluctuance drainage malodor or probe to bone. Medications and Allergies No outpatient medications have been marked as taking for the 12/19/23 encounter (Hospital Encounter) with [facility]. Allergies Allergen Reactions Tape 1"X5yd [Adhesive Tape] Rash Redness. Avoids. Prefers paper tape Labs: WBC COUNT Date Value Ref Range Status 09/12/2023 8.1 3.5 - 10.9 K/uL Final WBC Count Date Value Ref Range Status 11/12/2023 5.8 3.5 - 10.9 K/uL Final HEMOGLOBIN Date Value Ref Range Status 09/12/2023 12.2 11.2 - 15.7 G/DL Final Hemoglobin Date Value Ref Range Status 11/12/2023 10.6 11.2 - 15.7 g/dL Final HEMATOCRIT Date Value Ref Range Status 09/12/2023 36.8 34.0 - 49.0 % Final Hematocrit Date Value Ref Range Status 11/12/2023 32.0 34.0 - 49.0 % Final PLATELET COUNT Date Value Ref Range Status 09/12/2023 268 140 - 400 K/uL Final Platelet Count Date Value Ref Range Status 11/12/2023 191 140 - 400 K/uL Final SODIUM Date Value Ref Range Status 09/12/2023 138 135 - 148 MEQ/L Final 10/21/2020 135 135 - 148 MEQ/L Sodium Date Value Ref Range Status 11/12/2023 141 135 - 148 mEq/L Final POTASSIUM Date Value Ref Range Status 09/12/2023 4.7 3.4 - 5.3 MEQ/L Final Potassium Date Value Ref Range Status 11/12/2023 4.0 3.4 - 5.3 mEq/L Final CHLORIDE Date Value Ref Range Status 09/12/2023 101 96 - 110 MEQ/L Final Chloride Date Value Ref Range Status 11/12/2023 106 96 - 110 mEq/L Final CARBON DIOXIDE Date Value Ref Range Status 09/12/2023 24 19 - 32 MEQ/L Final Carbon Dioxide Date Value Ref Range Status 11/12/2023 23 19 - 32 mEq/L Final GLUCOSE Date Value Ref Range Status 09/12/2023 186 70 - 99 MG/DL Final Comment: (NOTE) The [place] [employer] recommends the following guidelines: MG/DL <100 = NORMAL GLUCOSE 100-125= IMPAIRED FASTING GLUCOSE >=126 = PROVISIONAL DIAGNOSIS OF DIABETES ADA Workgroup Report, Diabetic Care, volume 40August 2016 Glucose Date Value Ref Range Status 11/12/2023 148 70 - 99 mg/dL Final POC Glucose Date Value Ref Range Status 11/12/2023 252 70 - 99 mg/dL Final Comment: Use of this test in certain clinical conditions requiring intensive medical intervention/therapy may warrant additional consideration by provider. Test was performed by caregiver. CREATININE Date Value Ref Range Status 09/12/2023 1.1 0.5 - 1.2 MG/DL Final Creatinine Date Value Ref Range Status 11/12/2023 1.0 0.5 - 1.2 mg/dL Final BUN Date Value Ref Range Status 11/12/2023 32 3 - 29 mg/dL Final 09/12/2023 32 3 - 29 MG/DL Final CALCIUM Date Value Ref Range Status 09/12/2023 10.0 8.5 - 10.5 MG/DL Final Calcium Date Value Ref Range Status 11/12/2023 8.8 8.5 - 10.5 mg/dL Final ALBUMIN, SERUM Date Value Ref Range Status 10/16/2020 2.9 3.5 - 5.2 GM/DL Albumin Date Value Ref Range Status 11/12/2023 3.7 3.5 - 5.2 g/dL Final PROTHROMBIN TIME Date Value Ref Range Status 05/15/2019 13.0 11.7 - 13.9 SECONDS Prothrombin Time Date Value Ref Range Status 11/10/2023 13.6 11.7 - 13.9 Sec Final PARTIAL THROMBOPLASTIN TIME Date Value Ref Range Status 05/15/2019 23.3 24.5 - 35.2 SECONDS INR Date Value Ref Range Status 11/10/2023 1.1 0.9 - 1.1 Final 05/15/2019 1.0 0.9 - 1.1 Comment: MODERATE-INTENSITY WARFARIN THERAPY: 2.0-3.0 HIGHER-INTENSITY WARFARIN THERAPY: 3.0-4.0 HEMOGLOBIN A1C Date Value Ref Range Status 09/12/2023 9.0 4.0 - 6.0 % Final Comment: (NOTE) The [place] [employer] recommends the following Guidelines: 5.7-6.4% Indicates increased risk for diabetes (Prediabetes). >6.5% Diagnostic of diabetes. In the absence of unequivocal hyperglycemia, results should be confirmed by repeat test. <7% Glycemic recommendation for non adults with diabetes. [place] [employer], Standards of Medical Care in Diabetes, Volume 40; 2017 Debridement Procedure Note Site of debridement: Right foot Time out performed prior to treatment. Indication: Removal of nonviable tissue, fibrin, and exudates/slough Anesthesia: topical lidocaine per orders when needed Procedure: Excisional debridement was done using a scalpel and/or curette to remove the nonviable tissue and/or slough/exudates and fibrin after patient placed in a comfortable position. Nonexcisional debridement also done using 4x4 gauze and/or irrigation and/or cotton tip applicator. Level of Debridement: Subcutaneous Total area debrided (sqcm): 0.18 Response to procedure: satisfactory Complications: none Post debridement measurements done by RN and reviewed by myself Inocencio Mcfadden DPM [facility] Greater than 50% of the visit was spent counseling the patient regarding: Treatment options, conservative management, proper shoe gear, diabetic foot care, exercise, diet, possible complications, possible outcomes. A total of 22 minutes was spent with the patient. This time included: Obtaining and/or reviewing separately obtained history, performing a medically appropriate examination and/or evaluation, counseling and educating the patient/family/caregiver, independently interpreting results (not separately re ported) and communicating results to the patient/family/caregiver, documenting clinical informationin the electronic or other health record. documented in this encounterMemorial Health [id number] Miscellaneous Notes* Care Plan - Trini Boyce RN - 12/19/2023 12:30 PM EDT Progressing. documented in this encounterMemorial Health [id number] Note* Care Plan - Trini Boyce RN - 12/19/2023 12:30 PM EDT Progressing. [facility] [id number] Hospital Discharge instructions* Discharge Instructions * Trini Boyce RN - 12/16/2023 11:16 AM EDT You have been treated at [facility] for reasons of wound healing. WOUND CARE: With Dressing Changes - wash your hands prior to starting and after you finish and dispose of old materials properly. The following wound care procedure has been ordered for you in treating your wound: Wound location: Right plantar foot and right 3rd toe Cleanse with: saline/wound cleanser Apply to wound: collagen powder, alginate Ag Secure with: bordered foam Change Dressing: M-W-F Wear diabetic shoe insert with additional C-felt padding whenever walking. Return: 3 weeks SPECIAL INSTRUCTIONS: Nutrition: Increase dietary protein intake as instructed. Foot Wear: Follow specialty footwear instructions as advised. Off loading/Pressure Reduce: personal diabetic inserts PRECAUTIONS: If any of the following occur, contact [phone] immediately or go to your nearest emergency room!! Fever over 101 degrees Increase in drainage Redness around wound and/or streaking Odor or drainage Increase in pain Increased swelling Bleeding Need for compression bandage changes (slippage, breakthrough drainage) IF YOU ARE A DIABETIC: Gently dry well including between your toes Inspect feet/legs DAILY for skin problems, blisters, etc. Wear socks/stockings at all times Tell us if you need assistance putting on your socks or shoes Elevate your feet often, if swelling reaches your legs Wear compression garments as instructed Call us if you are sick, have a cold or flu HOME MEDICATIONS AT DISCHARGE Warning, if you take acetaminophen products: No more than 3Gms or 3000mg of acetaminophen (Tylenol)should be taken daily (eg. 6 extra-strength Tylenol). Be aware that multiple medications contain tylenol products(eg.vicodin, lortab, percocet, darvocet, and nonaspirin pain relievers). FUTURE VISIT INFORMATION: Call us if you are unable to come, leave a message if unable to speak to a staff member Every effort will be made to keep your scheduled appointment, occasionally patients admitted to thespital need priority care. In that case we will reschedule your treatments as soon as possible. Your signature verifies that we have reviewed this document and that you understand the importance of the information above and acknowledge receipt of same. Failure to comply with these reminders mayresult in delay of your care and/or termination of treatment. If you have any questions, please call us at [phone] documented in this encounterMemorial Health [id number] History of Present illness Narrative* Estiven Mcfadden DPM - 12/12/2023 2:15 PM EDT [facility] 12/12/2023 Patient Name: Hanna Nelson : 1940 AGE: [age] year old GENDER: Female Chief Complaint/Reason for Visit Hanna Nelson is a 81 year old female who presents today for wound care of chronic wound on the bottom of the right foot. New area to the right third toe. Patient did not know about this. Just sawtoday when her shoes and socks were removed. Assessment/Dermatologic Exam/Plan Assessment -Right lower extremity ulceration down to subcutaneous tissue (Daniels grade 2) -Charcot foot deformity right foot -Type 2 diabetes mellitus with peripheral neuropathy -Abrasion right foot Plan -Patient was seen, evaluated, and treated today. -No signs of infection today. Monitor off antibiotics -New wound to the dorsal aspect third toe right foot. No signs of infection. -She still waiting to see when diabetic shoes will be ready for pickup. -Continue with daily local wound care to the area as directed -Any signs of infection before the next visit go to the emergency room -Follow-up 1 weeks for recheck Patient's Problem List Patient Active Problem List Diagnosis Primary hypertension Type 2 diabetes mellitus treated with insulin (HC CODE) Arthritis Hypothyroidism due to acquired atrophy of thyroid Palpitation Hyponatremia Spinal stenosis of lumbar region with neurogenic claudication Paroxysmal atrial fibrillation (HC CODE) Postoperative ileus (HC CODE) Paraparesis (HC CODE) Ataxia Cellulitis Peripheral vascular disease (HC CODE) Cellulitis of right lower leg NAYELY, resolved Mixed hyperlipidemia Education regarding disease process, wound care, pressure relief and elevation discussed with patient today. Time spent with patient and patient care related issues in addition to coordination of patient's care with other physicians/agencies: Discharge Instructions were given to patient, significant other, caregiver, or [facility]. Follow-up Wound Right Foot Plantar (Active) Dressing Status / Change Moist with drainage 12/12/23 1400 Wound Bed Appearance [place] 12/12/23 1400 Drainage Amount Moderate 12/12/23 1400 Drainage Appearance Serous 12/12/23 1400 Odor None 11/14/23 1300 Wound cleanser Body wash / periwash 12/12/23 1400 Specific Procedures Other (Comment) 07/25/23 1331 Advanced Wound Intervention Photos 12/12/23 1400 Wound length (cm) 0.2 cm 12/12/23 1500 Wound width (cm) 0.8 cm 12/12/23 1500 Wound depth (cm) 0.1 cm 12/12/23 1500 Wound Surface Area (length x width) 0.16 12/12/23 1500 Undermining / Tunneling Yes 11/14/23 1300 Periwound (surrounding) tissue Calloused 12/12/23 1400 Primary Dressing Collagens;Alginate;Antimicrobial 12/12/23 1500 Secondary Dressing Foam Dressing-Silicone [place] 12/12/23 1500 Wound Right Toe(s) 3rd Diabetic ulcer (neuropathic) (Active) Dressing Status / Change Open to air 12/12/23 1400 Wound Bed Appearance [place] 12/12/23 1400 Drainage Amount Small 12/12/23 1400 Drainage Appearance Serous 12/12/23 1400 Wound cleanser Body wash / periwash 12/12/23 1400 Advanced Wound Intervention Photos 12/12/23 1400 Wound length (cm) 0.5 cm 12/12/23 1500 Wound width (cm) 0.6 cm 12/12/23 1500 Wound depth (cm) 0.1 cm 12/12/23 1500 Wound Surface Area (length x width) 0.3 12/12/23 1500 Primary Dressing Collagens;Alginate;Antimicrobial 12/12/23 1500 Secondary Dressing Foam Dressing-Silicone Boarder 12/12/23 1500 Objective Vitals Signs: Visit Vitals BP 147/67 Pulse 76 Temp 97.3 F (36.3 C) Resp 16 OB Status Postmenopausal Smoking Status Former General Exam GENERAL: The patient is in no acute distress. RESP: Nonlabored breathing. No distress. Normal respirations. ABD: benign EXTREMITIES: Edema noted to the right lower extremity increased improved to previous. No erythema today. No crepitus fluctuance drainage malodor or probe to bone. Medications and Allergies No outpatient medications have been marked as taking for the 12/12/23 encounter (Hospital Encounter) with [facility]. Allergies Allergen Reactions Tape 1"X5yd [Adhesive Tape] Rash Redness. Avoids. Prefers paper tape Labs: WBC COUNT Date Value Ref Range Status 09/12/2023 8.1 3.5 - 10.9 K/uL Final WBC Count Date Value Ref Range Status 11/12/2023 5.8 3.5 - 10.9 K/uL Final HEMOGLOBIN Date Value Ref Range Status 09/12/2023 12.2 11.2 - 15.7 G/DL Final Hemoglobin Date Value Ref Range Status 11/12/2023 10.6 11.2 - 15.7 g/dL Final HEMATOCRIT Date Value Ref Range Status 09/12/2023 36.8 34.0 - 49.0 % Final Hematocrit Date Value Ref Range Status 11/12/2023 32.0 34.0 - 49.0 % Final PLATELET COUNT Date Value Ref Range Status 09/12/2023 268 140 - 400 K/uL Final Platelet Count Date Value Ref Range Status 11/12/2023 191 140 - 400 K/uL Final SODIUM Date Value Ref Range Status 09/12/2023 138 135 - 148 MEQ/L Final 10/21/2020 135 135 - 148 MEQ/L Sodium Date Value Ref Range Status 11/12/2023 141 135 - 148 mEq/L Final POTASSIUM Date Value Ref Range Status 09/12/2023 4.7 3.4 - 5.3 MEQ/L Final Potassium Date Value Ref Range Status 11/12/2023 4.0 3.4 - 5.3 mEq/L Final CHLORIDE Date Value Ref Range Status 09/12/2023 101 96 - 110 MEQ/L Final Chloride Date Value Ref Range Status 11/12/2023 106 96 - 110 mEq/L Final CARBON DIOXIDE Date Value Ref Range Status 09/12/2023 24 19 - 32 MEQ/L Final Carbon Dioxide Date Value Ref Range Status 11/12/2023 23 19 - 32 mEq/L Final GLUCOSE Date Value Ref Range Status 09/12/2023 186 70 - 99 MG/DL Final Comment: (NOTE) The [place] [employer] recommends the following guidelines: MG/DL <100 = NORMAL GLUCOSE 100-125= IMPAIRED FASTING GLUCOSE >=126 = PROVISIONAL DIAGNOSIS OF DIABETES ADA Workgroup Report, Diabetic Care, volume 40August 2016 Glucose Date Value Ref Range Status 11/12/2023 148 70 - 99 mg/dL Final POC Glucose Date Value Ref Range Status 11/12/2023 252 70 - 99 mg/dL Final Comment: Use of this test in certain clinical conditions requiring intensive medical intervention/therapy may warrant additional consideration by provider. Test was performed by caregiver. CREATININE Date Value Ref Range Status 09/12/2023 1.1 0.5 - 1.2 MG/DL Final Creatinine Date Value Ref Range Status 11/12/2023 1.0 0.5 - 1.2 mg/dL Final BUN Date Value Ref Range Status 11/12/2023 32 3 - 29 mg/dL Final 09/12/2023 32 3 - 29 MG/DL Final CALCIUM Date Value Ref Range Status 09/12/2023 10.0 8.5 - 10.5 MG/DL Final Calcium Date Value Ref Range Status 11/12/2023 8.8 8.5 - 10.5 mg/dL Final ALBUMIN, SERUM Date Value Ref Range Status 10/16/2020 2.9 3.5 - 5.2 GM/DL Albumin Date Value Ref Range Status 11/12/2023 3.7 3.5 - 5.2 g/dL Final PROTHROMBIN TIME Date Value Ref Range Status 05/15/2019 13.0 11.7 - 13.9 SECONDS Prothrombin Time Date Value Ref Range Status 11/10/2023 13.6 11.7 - 13.9 Sec Final PARTIAL THROMBOPLASTIN TIME Date Value Ref Range Status 05/15/2019 23.3 24.5 - 35.2 SECONDS INR Date Value Ref Range Status 11/10/2023 1.1 0.9 - 1.1 Final 05/15/2019 1.0 0.9 - 1.1 Comment: MODERATE-INTENSITY WARFARIN THERAPY: 2.0-3.0 HIGHER-INTENSITY WARFARIN THERAPY: 3.0-4.0 HEMOGLOBIN A1C Date Value Ref Range Status 09/12/2023 9.0 4.0 - 6.0 % Final Comment: (NOTE) The [place] [employer] recommends the following Guidelines: 5.7-6.4% Indicates increased risk for diabetes (Prediabetes). >6.5% Diagnostic of diabetes. In the absence of unequivocal hyperglycemia, results should be confirmed by repeat test. <7% Glycemic recommendation for non adults with diabetes. [place] [employer], Standards of Medical Care in Diabetes, Volume 40; 2017 Debridement Procedure Note Site of debridement: Right foot Time out performed prior to treatment. Indication: Removal of nonviable tissue, fibrin, and exudates/slough Anesthesia: topical lidocaine per orders when needed Procedure: Excisional debridement was done using a scalpel and/or curette to remove the nonviable tissue and/or slough/exudates and fibrin after patient placed in a comfortable position. Nonexcisional debridement also done using 4x4 gauze and/or irrigation and/or cotton tip applicator. Level of Debridement: Subcutaneous Total area debrided (sqcm): 0.46 Response to procedure: satisfactory Complications: none Post debridement measurements done by RN and reviewed by myself Inocencio Mcfadden DPM [facility] Greater than 50% of the visit was spent counseling the patient regarding: Treatment options, conservative management, proper shoe gear, diabetic foot care, exercise, diet, possible complications, possible outcomes. A total of 22 minutes was spent with the patient. This time included: Obtaining and/or reviewing separately obtained history, performing a medically appropriate examination and/or evaluation, counseling and educating the patient/family/caregiver, independently interpreting results (not separately re ported) and communicating results to the patient/family/caregiver, documenting clinical informationin the electronic or other health record. documented in this encounterMemorial Health [id number] Hospital Discharge instructions* Discharge Instructions* Trini Boyce RN - 12/12/2023 9:52 AM EDT You have been treated at [facility] for reasons of wound healing. WOUND CARE: With Dressing Changes - wash your hands prior to starting and after you finish and dispose of old materials properly. The following wound care procedure has been ordered for you in treating your wound: Wound location: Right plantar foot and right 3rd toe Cleanse with: saline/wound cleanser Apply to wound: collagen powder, alginate Ag Secure with: bordered foam Change Dressing: M-W-F Wear diabetic shoe insert with additional C-felt padding whenever walking. Return: 2 weeks SPECIAL INSTRUCTIONS: Nutrition: Increase dietary protein intake as instructed. Foot Wear: Follow specialty footwear instructions as advised. Off loading/Pressure Reduce: personal diabetic inserts SPECIAL INSTRUCTIONS: Nutrition: Increase dietary protein intake as instructed. Foot Wear: Follow specialty footwear instructions as advised. Off loading/Pressure Reduce: PRECAUTIONS: If any of the following occur, contact [phone] immediately or go to your nearest emergency room!! Fever over 101 degrees Increase in drainage Redness around wound and/or streaking Odor or drainage Increase in pain Increased swelling Bleeding Need for compression bandage changes (slippage, breakthrough drainage) IF YOU ARE A DIABETIC: Gently dry well including between your toes Inspect feet/legs DAILY for skin problems, blisters, etc. Wear socks/stockings at all times Tell us if you need assistance putting on your socks or shoes Elevate your feet often, if swelling reaches your legs Wear compression garments as instructed Call us if you are sick, have a cold or flu HOME MEDICATIONS AT DISCHARGE Warning, if you take acetaminophen products: No more than 3Gms or 3000mg of acetaminophen (Tylenol)should be taken daily (eg. 6 extra-strength Tylenol). Be aware that multiple medications contain tylenol products(eg.vicodin, lortab, percocet, darvocet, and nonaspirin pain relievers). FUTURE VISIT INFORMATION: Call us if you are unable to come, leave a message if unable to speak to a staff member Every effort will be made to keep your scheduled appointment, [facility] In that case we will reschedule your treatments as soon as possible. Your signature verifies that we have reviewed this document and that you understand the importance of the information above and acknowledge receipt of same. Failure to comply with these reminders mayresult in delay of your care and/or termination of treatment. If you have any questions, please call us at [phone] documented in this encounterMemorial Health [id number] History of Present illness Narrative* Estiven Mcfadden DPM - 11/25/2023 2:45 PM EDT [facility] 11/25/2023 Patient Name: Hanna Nelson : 1940 AGE: [age] year old GENDER: Female Chief Complaint/Reason for Visit Hanna Nelson is a 81 year old female who presents today for wound care of chronic wound on the bottom of the right foot. Redness and pain has resolved. She is finished antibiotics. No new concerns. Assessment/Dermatologic Exam/Plan Assessment -Right lower extremity ulceration down to subcutaneous tissue (Daniels grade 2) -Charcot foot deformity right foot -Type 2 diabetes mellitus with peripheral neuropathy -Abrasion right foot Plan -Patient was seen, evaluated, and treated today. -No signs of infection today. Monitor off antibiotics -She still waiting to see when diabetic shoes will be ready for pickup. -Continue with daily local wound care to the area as directed -Any signs of infection before the next visit go to the emergency room -Follow-up 2 weeks for recheck Patient's Problem List Patient Active Problem List Diagnosis Primary hypertension Type 2 diabetes mellitus treated with insulin (HC CODE) Arthritis Hypothyroidism due to acquired atrophy of thyroid Palpitation Hyponatremia Spinal stenosis of lumbar region with neurogenic claudication Paroxysmal atrial fibrillation (HC CODE) Postoperative ileus (HC CODE) Paraparesis (HC CODE) Ataxia Cellulitis Peripheral vascular disease (HC CODE) Cellulitis of right lower leg NAYELY, resolved Mixed hyperlipidemia Education regarding disease process, wound care, pressure relief and elevation discussed with patient today. Time spent with patient and patient care related issues in addition to coordination of patient's care with other physicians/agencies: Discharge Instructions were given to patient, significant other, caregiver, or [facility]. Follow-up Wound Right Foot Plantar (Active) Dressing Status / Change Moist with drainage 11/25/23 1500 Wound Bed Appearance [place] 11/25/23 1500 Drainage Amount Small 11/25/23 1500 Drainage Appearance Serous 11/25/23 1500 Odor None 11/14/23 1300 Wound cleanser Normal saline 11/25/23 1500 Specific Procedures Other (Comment) 07/25/23 1331 Advanced Wound Intervention Photos 11/14/23 1300 Wound length (cm) 0.3 cm 11/25/23 1527 Wound width (cm) 0.9 cm 11/25/23 1527 Wound depth (cm) 0.15 cm 11/25/23 1527 Wound Surface Area (length x width) 0.27 11/25/23 1527 Undermining / Tunneling Yes 11/14/23 1300 Periwound (surrounding) tissue Macerated;Calloused;Rolled wound edges / epibole 11/14/23 1300 Primary Dressing Collagens;Alginate;Antimicrobial 11/25/23 1527 Secondary Dressing Foam Dressing-Silicone Boarder 11/25/23 1527 Objective Vitals Signs: Visit Vitals BP 141/65 Pulse 79 Temp 97.2 F (36.2 C) Resp 16 OB Status Postmenopausal Smoking Status Former General Exam GENERAL: The patient is in no acute distress. RESP: Nonlabored breathing. No distress. Normal respirations. ABD: benign EXTREMITIES: Edema noted to the right lower extremity increased improved to previous. No erythema today. No crepitus fluctuance drainage malodor or probe to bone. Medications and Allergies No outpatient medications have been marked as taking for the 11/25/23 encounter (Hospital Encounter)with [facility]. Allergies Allergen Reactions Tape 1"X5yd [Adhesive Tape] Rash Redness. Avoids. Prefers paper tape Labs: WBC COUNT Date Value Ref Range Status 09/12/2023 8.1 3.5 - 10.9 K/uL Final WBC Count Date Value Ref Range Status 11/12/2023 5.8 3.5 - 10.9 K/uL Final HEMOGLOBIN Date Value Ref Range Status 09/12/2023 12.2 11.2 - 15.7 G/DL Final Hemoglobin Date Value Ref Range Status 11/12/2023 10.6 11.2 - 15.7 g/dL Final HEMATOCRIT Date Value Ref Range Status 09/12/2023 36.8 34.0 - 49.0 % Final Hematocrit Date Value Ref Range Status 11/12/2023 32.0 34.0 - 49.0 % Final PLATELET COUNT Date Value Ref Range Status 09/12/2023 268 140 - 400 K/uL Final Platelet Count Date Value Ref Range Status 11/12/2023 191 140 - 400 K/uL Final SODIUM Date Value Ref Range Status 09/12/2023 138 135 - 148 MEQ/L Final 10/21/2020 135 135 - 148 MEQ/L Sodium Date Value Ref Range Status 11/12/2023 141 135 - 148 mEq/L Final POTASSIUM Date Value Ref Range Status 09/12/2023 4.7 3.4 - 5.3 MEQ/L Final Potassium Date Value Ref Range Status 11/12/2023 4.0 3.4 - 5.3 mEq/L Final CHLORIDE Date Value Ref Range Status 09/12/2023 101 96 - 110 MEQ/L Final Chloride Date Value Ref Range Status 11/12/2023 106 96 - 110 mEq/L Final CARBON DIOXIDE Date Value Ref Range Status 09/12/2023 24 19 - 32 MEQ/L Final Carbon Dioxide Date Value Ref Range Status 11/12/2023 23 19 - 32 mEq/L Final GLUCOSE Date Value Ref Range Status 09/12/2023 186 70 - 99 MG/DL Final Comment: (NOTE) The [place] [employer] recommends the following guidelines: MG/DL <100 = NORMAL GLUCOSE 100-125= IMPAIRED FASTING GLUCOSE >=126 = PROVISIONAL DIAGNOSIS OF DIABETES ADA Workgroup Report, Diabetic Care, volume 40, August 2016 Glucose Date Value Ref Range Status 11/12/2023 148 70 - 99 mg/dL Final POC Glucose Date Value Ref Range Status 11/12/2023 252 70 - 99 mg/dL Final Comment: Use of this test in certain clinical conditions requiring intensive medical intervention/therapy may warrant additional consideration by provider. Test was performed by caregiver. CREATININE Date Value Ref Range Status 09/12/2023 1.1 0.5 - 1.2 MG/DL Final Creatinine Date Value Ref Range Status 11/12/2023 1.0 0.5 - 1.2 mg/dL Final BUN Date Value Ref Range Status 11/12/2023 32 3 - 29 mg/dL Final 09/12/2023 32 3 - 29 MG/DL Final CALCIUM Date Value Ref Range Status 09/12/2023 10.0 8.5 - 10.5 MG/DL Final Calcium Date Value Ref Range Status 11/12/2023 8.8 8.5 - 10.5 mg/dL Final ALBUMIN, SERUM Date Value Ref Range Status 10/16/2020 2.9 3.5 - 5.2 GM/DL Albumin Date Value Ref Range Status 11/12/2023 3.7 3.5 - 5.2 g/dL Final PROTHROMBIN TIME Date Value Ref Range Status 05/15/2019 13.0 11.7 - 13.9 SECONDS Prothrombin Time Date Value Ref Range Status 11/10/2023 13.6 11.7 - 13.9 Sec Final PARTIAL THROMBOPLASTIN TIME Date Value Ref Range Status 05/15/2019 23.3 24.5 - 35.2 SECONDS INR Date Value Ref Range Status 11/10/2023 1.1 0.9 - 1.1 Final 05/15/2019 1.0 0.9 - 1.1 Comment: MODERATE-INTENSITY WARFARIN THERAPY: 2.0-3.0 HIGHER-INTENSITY WARFARIN THERAPY: 3.0-4.0 HEMOGLOBIN A1C Date Value Ref Range Status 09/12/2023 9.0 4.0 - 6.0 % Final Comment: (NOTE) The [place] [employer] recommends the following Guidelines: 5.7-6.4% Indicates increased risk for diabetes (Prediabetes). >6.5% Diagnostic of diabetes. In the absence of unequivocal hyperglycemia, results should be confirmed by repeat test. <7% Glycemic recommendation for non adults with diabetes. [place] [employer], Standards of Medical Care in Diabetes, Volume 40; 2017 Debridement Procedure Note Site of debridement: Right foot Time out performed prior to treatment. Indication: Removal of nonviable tissue, fibrin, and exudates/slough Anesthesia: topical lidocaine per orders when needed Procedure: Excisional debridement was done using a scalpel and/or curette to remove the nonviable tissue and/or slough/exudates and fibrin after patient placed in a comfortable position. Nonexcisional debridement also done using 4x4 gauze and/or irrigation and/or cotton tip applicator. Level of Debridement: Subcutaneous Total area debrided (sqcm): 0.27 Response to procedure: satisfactory Complications: none Post debridement measurements done by RN and reviewed by myself Inocencio Mcfadden DPM [facility] Greater than 50% of the visit was spent counseling the patient regarding: Treatment options, conservative management, proper shoe gear, diabetic foot care, exercise, diet, possible complications, possible outcomes. A total of 31 minutes was spent with the patient. This time included: Obtaining and/or reviewing separately obtained history, performing a medically appropriate examination and/or evaluation, counseling and educating the patient/family/caregiver, independently interpreting results (not separately re ported) and communicating results to the patient/family/caregiver, documenting clinical informationin the electronic or other health record. documented in this encounterMemorial Health [id number] Hospital Discharge instructions* Discharge Instructions* Trini Boyce RN - 11/22/2023 8:42 AM EDT You have been treated at [facility] for reasons of wound healing. WOUND CARE: With Dressing Changes - wash your hands prior to starting and after you finish and dispose of old materials properly. The following wound care procedure has been ordered for you in treating your wound: Wound location: Right plantar foot Cleanse with: saline/wound cleanser Apply to wound: collagen powder, alginate Ag Secure with: bordered foam Change Dressing: M-W-F Wear diabetic shoe insert with additional C-felt padding whenever walking. Return: 2 weeks SPECIAL INSTRUCTIONS: Nutrition: Increase dietary protein intake as instructed. Foot Wear: Follow specialty footwear instructions as advised. Off loading/Pressure Reduce: personal diabetic inserts PRECAUTIONS: If any of the following occur, contact [phone] immediately or go to your nearest emergency room!! Fever over 101 degrees Increase in drainage Redness around wound and/or streaking Odor or drainage Increase in pain Increased swelling Bleeding Need for compression bandage changes (slippage, breakthrough drainage) IF YOU ARE A DIABETIC: Gently dry well including between your toes Inspect feet/legs DAILY for skin problems, blisters, etc. Wear socks/stockings at all times Tell us if you need assistance putting on your socks or shoes Elevate your feet often, if swelling reaches your legs Wear compression garments as instructed Call us if you are sick, have a cold or flu HOME MEDICATIONS AT DISCHARGE Warning, if you take acetaminophen products: No more than 3Gms or 3000mg of acetaminophen (Tylenol)should be taken daily (eg. 6 extra-strength Tylenol). Be aware that multiple medications contain tylenol products(eg.vicodin, lortab, percocet, darvocet, and nonaspirin pain relievers). FUTURE VISIT INFORMATION: Call us if you are unable to come, leave a message if unable to speak to a staff member Every effort will be made to keep your scheduled appointment, occasionally patients admitted to thespital need priority care. In that case we will reschedule your treatments as soon as possible. Your signature verifies that we have reviewed this document and that you understand the importance of the information above and acknowledge receipt of same. Failure to comply with these reminders mayresult in delay of your care and/or termination of treatment. If you have any questions, please call us at [phone] documented in this encounterMemorial Health [id number] History of Present illness Narrative* Estiven Mcfadden DPM - 11/14/2023 1:30 PM EDT [facility] 11/14/2023 Patient Name: Hanna Nelson : 1940 AGE: [age] year old GENDER: Female Chief Complaint/Reason for Visit Hanna Nelson is a 81 year old female who presents today for wound care of chronic wound on the bottom of the right foot. She did have concern for infection to the right foot last week. She went to the emergency room on Saturday and she was admitted for IV antibiotics was for cellulitis on her foot. She denies any pain to the area today. She is taking oral antibiotics that she was given on discharge from the hospital. No constitutional symptoms. Assessment/Dermatologic Exam/Plan Assessment -Right lower extremity ulceration down to subcutaneous tissue (Daniels grade 2) -Charcot foot deformity right foot -Type 2 diabetes mellitus with peripheral neuropathy -Abrasion right foot Plan -Patient was seen, evaluated, and treated today. -No signs of infection today. 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 -Continue with daily local wound care to the area as directed -Any signs of infection before the next visit go to the emergency room -Wanted to see the patient in 1 week but she is going to be out of town so we will see her in 10 days Patient's Problem List Patient Active Problem List Diagnosis Primary hypertension Type 2 diabetes mellitus treated with insulin (HC CODE) Arthritis Hypothyroidism due to acquired atrophy of thyroid Palpitation Hyponatremia Spinal stenosis of lumbar region with neurogenic claudication Paroxysmal atrial fibrillation (HC CODE) Postoperative ileus (HC CODE) Paraparesis (HC CODE) Ataxia Cellulitis Peripheral vascular disease (HC CODE) Cellulitis of right lower leg NAYELY, resolved Mixed hyperlipidemia Education regarding disease process, wound care, pressure relief and elevation discussed with patient today. Time spent with patient and patient care related issues in addition to coordination of patient's care with other physicians/agencies: Discharge Instructions were given to patient, significant other, caregiver, or [facility]. Follow-up Wound Right Foot Plantar (Active) Dressing Status / Change Moist with drainage 11/14/23 1300 Wound Bed Appearance Red 11/14/23 1300 Drainage Amount Large 11/14/23 1300 Drainage Appearance Bloody 11/14/23 1300 Odor None 11/14/23 1300 Wound cleanser Wound cleanser 11/14/23 1300 Specific Procedures Other (Comment) 07/25/23 1331 Advanced Wound Intervention Photos 11/14/23 1300 Wound length (cm) 1.4 cm 11/14/23 1400 Wound width (cm) 3.9 cm 11/14/23 1400 Wound depth (cm) 0.2 cm 11/14/23 1400 Wound Surface Area (length x width) 5.46 11/14/23 1400 Undermining / Tunneling Yes 11/14/23 1300 Periwound (surrounding) tissue Macerated;Calloused;Rolled wound edges / epibole 11/14/23 1300 Primary Dressing Collagens;Alginate;Antimicrobial 11/14/23 1400 Secondary Dressing Foam Dressing-Silicone Boarder 11/14/23 1400 Objective Vitals Signs: Visit Vitals BP 132/79 Pulse 71 Temp 96.3 F (35.7 C) Resp 16 OB Status Postmenopausal Smoking Status Former General Exam GENERAL: The patient is in no acute distress. RESP: Nonlabored breathing. No distress. Normal respirations. ABD: benign EXTREMITIES: Edema noted to the right lower extremity increased compared to previous. Minimal erythema still noted to the bottom of the foot. No crepitus fluctuance drainage malodor or probe to bone. Medications and Allergies No outpatient medications have been marked as taking for the 11/14/23 encounter (Hospital Encounter) with [facility]. Allergies Allergen Reactions Tape 1"X5yd [Adhesive Tape] Rash Redness. Avoids. Prefers paper tape Labs: WBC COUNT Date Value Ref Range Status 09/12/2023 8.1 3.5 - 10.9 K/uL Final WBC Count Date Value Ref Range Status 11/12/2023 5.8 3.5 - 10.9 K/uL Final HEMOGLOBIN Date Value Ref Range Status 09/12/2023 12.2 11.2 - 15.7 G/DL Final Hemoglobin Date Value Ref Range Status 11/12/2023 10.6 11.2 - 15.7 g/dL Final HEMATOCRIT Date Value Ref Range Status 09/12/2023 36.8 34.0 - 49.0 % Final Hematocrit Date Value Ref Range Status 11/12/2023 32.0 34.0 - 49.0 % Final PLATELET COUNT Date Value Ref Range Status 09/12/2023 268 140 - 400 K/uL Final Platelet Count Date Value Ref Range Status 11/12/2023 191 140 - 400 K/uL Final SODIUM Date Value Ref Range Status 09/12/2023 138 135 - 148 MEQ/L Final 10/21/2020 135 135 - 148 MEQ/L Sodium Date Value Ref Range Status 11/12/2023 141 135 - 148 mEq/L Final POTASSIUM Date Value Ref Range Status 09/12/2023 4.7 3.4 - 5.3 MEQ/L Final Potassium Date Value Ref Range Status 11/12/2023 4.0 3.4 - 5.3 mEq/L Final CHLORIDE Date Value Ref Range Status 09/12/2023 101 96 - 110 MEQ/L Final Chloride Date Value Ref Range Status 11/12/2023 106 96 - 110 mEq/L Final CARBON DIOXIDE Date Value Ref Range Status 09/12/2023 24 19 - 32 MEQ/L Final Carbon Dioxide Date Value Ref Range Status 11/12/2023 23 19 - 32 mEq/L Final GLUCOSE Date Value Ref Range Status 09/12/2023 186 70 - 99 MG/DL Final Comment: (NOTE) The [place] [employer] recommends the following guidelines: MG/DL <100 = NORMAL GLUCOSE 100-125= IMPAIRED FASTING GLUCOSE >=126 = PROVISIONAL DIAGNOSIS OF DIABETES ADA Workgroup Report, Diabetic Care, volume 40, August 2016 Glucose Date Value Ref Range Status 11/12/2023 148 70 - 99 mg/dL Final POC Glucose Date Value Ref Range Status 11/12/2023 252 70 - 99 mg/dL Final Comment: Use of this test in certain clinical conditions requiring intensive medical intervention/therapy may warrant additional consideration by provider. Test was performed by caregiver. CREATININE Date Value Ref Range Status 09/12/2023 1.1 0.5 - 1.2 MG/DL Final Creatinine Date Value Ref Range Status 11/12/2023 1.0 0.5 - 1.2 mg/dL Final BUN Date Value Ref Range Status 11/12/2023 32 3 - 29 mg/dL Final 09/12/2023 32 3 - 29 MG/DL Final CALCIUM Date Value Ref Range Status 09/12/2023 10.0 8.5 - 10.5 MG/DL Final Calcium Date Value Ref Range Status 11/12/2023 8.8 8.5 - 10.5 mg/dL Final ALBUMIN, SERUM Date Value Ref Range Status 10/16/2020 2.9 3.5 - 5.2 GM/DL Albumin Date Value Ref Range Status 11/12/2023 3.7 3.5 - 5.2 g/dL Final PROTHROMBIN TIME Date Value Ref Range Status 05/15/2019 13.0 11.7 - 13.9 SECONDS Prothrombin Time Date Value Ref Range Status 11/10/2023 13.6 11.7 - 13.9 Sec Final PARTIAL THROMBOPLASTIN TIME Date Value Ref Range Status 05/15/2019 23.3 24.5 - 35.2 SECONDS INR Date Value Ref Range Status 11/10/2023 1.1 0.9 - 1.1 Final 05/15/2019 1.0 0.9 - 1.1 Comment: MODERATE-INTENSITY WARFARIN THERAPY: 2.0-3.0 HIGHER-INTENSITY WARFARIN THERAPY: 3.0-4.0 HEMOGLOBIN A1C Date Value Ref Range Status 09/12/2023 9.0 4.0 - 6.0 % Final Comment: (NOTE) The [place] [employer] recommends the following Guidelines: 5.7-6.4% Indicates increased risk for diabetes (Prediabetes). >6.5% Diagnostic of diabetes. In the absence of unequivocal hyperglycemia, results should be confirmed by repeat test. <7% Glycemic recommendation for non adults with diabetes. [place] [employer], Standards of Medical Care in Diabetes, Volume 40; 2017 Debridement Procedure Note Site of debridement: Right foot Time out performed prior to treatment. Indication: Removal of nonviable tissue, fibrin, and exudates/slough Anesthesia: topical lidocaine per orders when needed Procedure: Excisional debridement was done using a scalpel and/or curette to remove the nonviable tissue and/or slough/exudates and fibrin after patient placed in a comfortable position. Nonexcisional debridement also done using 4x4 gauze and/or irrigation and/or cotton tip applicator. Level of Debridement: Subcutaneous Total area debrided (sqcm): 5.46 Response to procedure: satisfactory Complications: none Post debridement measurements done by RN and reviewed by myself Inocencio Mcfadden DPM [facility] Greater than 50% of the visit was spent counseling the patient regarding: Treatment options, conservative management, proper shoe gear, diabetic foot care, exercise, diet, possible complications, possible outcomes. A total of 31 minutes was spent with the patient. This time included: Obtaining and/or reviewing separately obtained history, performing a medically appropriate examination and/or evaluation, counseling and educating the patient/family/caregiver, independently interpreting results (not separately re ported) and communicating results to the patient/family/caregiver, documenting clinical informationin the electronic or other health record. documented in [place] encounterLatoya [place]ille [id number] Miscellaneous Notes* Care Plan - Trini Boyce RN - 11/14/2023 1:30 PM EDT Wound larger. SQ debridement completed by CLIFF. documented in this encounterLatoya [place]ille [id number] Note* Care Plan - Trini Boyce RN - 11/14/2023 1:30 PM EDT Wound larger. SQ debridement completed by JK. [facility] [id number] Nurse Note* Gin Kay RN - 11/12/2023 3:14 PM EDT Discussed discharge paperwork and when to take medications. Teach back and all questions answered. IV removed. [place] [id number] Nurse Note* Gin Kay RN - 11/12/2023 3:14 PM EDT Discussed discharge paperwork and when to take medications. Teach back and all questions answered. IV removed. documented in [place] encounterLatoya [place]ille [id number] Note* Care Plan - Gin Kay RN - 11/12/2023 3:12 PM EDT Problem: Skin Integrity - Impaired Goal: Decrease in wound size 11/12/2023 151 by Gin Kay RN Outcome: Completed 11/12/20231131 by Gin Kay RN Outcome: Progressing Goal: Skin integrity intact 11/12/2023 151 by Gin Kay RN Outcome: Completed 11/12/20231131 by Gin Kay RN Outcome: Progressing Problem: Falls - Risk of Goal: Absence of falls Description: Avoid the routine use of bedrails or physical restraints as a fall- prevention intervention. 11/12/2023 151 by Gin Kay RN Outcome: Completed 11/12/20231131 by Gin Kay RN Outcome: Progressing Goal: Knowledge of fall prevention 11/12/2023 151 by Gin Kay RN Outcome: Completed 11/12/20231131 by Gin Kay RN Outcome: Progressing Problem: Pain - Acute Goal: Communication of presence of pain Description: For patients who are pharmacologically paralyzed and unresponsive to pain via behavioral cues, behavioral pain scales should not be used. 11/12/2023 151 by Gin Kay RN Outcome: Completed 11/12/20231131 by Gin Kay RN Outcome: Progressing Goal: Control of acute pain Description: Pain management should include both nonpharmacologic and pharmacologic interventions. 11/12/2023 151 by Gin Kay RN Outcome: Completed 11/12/20231131 by Gin Kay RN Outcome: Progressing Problem: Mobility - Impaired Goal: Able to ambulate independently 11/12/2023 1512 by Gin Kay RN Outcome: Completed 11/12/2023 113 by Gin Kay RN Outcome: Progressing Goal: Knowledge of need for increased mobility 11/12/2023 1512 by Gin Kay RN Outcome: Completed 11/12/2023 113 by Gin Kay RN Outcome: Progressing Problem: Admission - General, Adult Goal: Able to cope with hospitalization 11/12/2023 1512 by Gin Kay RN Outcome: Completed 11/12/2023 1132 by Gin Kay RN Outcome: Progressing Goal: Knowledge of infection control procedures 11/12/2023 1512 by Gin Kay RN Outcome: Completed 11/12/2023 1132 by Gin Kay RN Outcome: Progressing Goal: Participation in care planning 11/12/2023 1512 by Gin Kay RN Outcome: Completed 11/12/2023 1132 by Gin Kay RN Outcome: Progressing Problem: Discharge Planning Goal: Knowledge of diabetes self-management 11/12/2023 1512 by Gin Kay RN Outcome: Completed 11/12/2023 1132 by Gin Kay RN Outcome: Progressing Problem: Injury Risk, Abnormal Serum Glucose Level Goal: Glucose level within specified parameters 11/12/2023 1512 by Gin Kay RN Outcome: Completed 11/12/2023 1132 by Gin Kay RN Outcome: Progressing [facility] [id number] Miscellaneous Notes* Care Plan - Gin Kay RN - 11/12/2023 3:12 PM EDT Problem: Skin Integrity - Impaired Goal: Decrease in wound size 11/12/2023 1512 by Gin Kay RN Outcome: Completed 11/12/2023 1132 by Gin Kay RN Outcome: Progressing Goal: Skin integrity intact 11/12/2023 1512 by Gin Kay RN Outcome: Completed 11/12/2023 1132 by Gin Kay RN Outcome: Progressing Problem: Falls - Risk of Goal: Absence of falls Description: Avoid the routine use of bedrails or physical restraints as a fall- prevention intervention. 11/12/2023 1512 by Gin Kay RN Outcome: Completed 11/12/2023 1132 by Gin Kay RN Outcome: Progressing Goal: Knowledge of fall prevention 11/12/2023 1512 by Gin Kay RN Outcome: Completed 11/12/2023 1132 by Gin Kay RN Outcome: Progressing Problem: Pain - Acute Goal: Communication of presence of pain Description: For patients who are pharmacologically paralyzed and unresponsive to pain via behavioral cues, behavioral pain scales should not be used. 11/12/2023 1512 by Gin Kay RN Outcome: Completed 11/12/2023 113 by Gin Kay RN Outcome: Progressing Goal: Control of acute pain Description: Pain management should include both nonpharmacologic and pharmacologic interventions. 11/12/2023 1512 by Gin Kay RN Outcome: Completed 11/12/2023 1132 by Gin Kya RN Outcome: Progressing Problem: Mobility - Impaired Goal: Able to ambulate independently 11/12/2023 1512 by Gin Kay RN Outcome: Completed 11/12/2023 1132 by Gin Kay RN Outcome: Progressing Goal: Knowledge of need for increased mobility 11/12/2023 1512 by Gin Kay RN Outcome: Completed 11/12/2023 1132 by Gin Kay RN Outcome: Progressing Problem: Admission - General, Adult Goal: Able to cope with hospitalization 11/12/2023 1512 by Gin Kay RN Outcome: Completed 11/12/2023 1132 by Gin Kay RN Outcome: Progressing Goal: Knowledge of infection control procedures 11/12/2023 1512 by Gin Kay RN Outcome: Completed 11/12/2023 1132 by Gin Kay RN Outcome: Progressing Goal: Participation in care planning 11/12/2023 1512 by Gin Kay RN Outcome: Completed 11/12/2023 1132 by Gin Kay RN Outcome: Progressing Problem: Discharge Planning Goal: Knowledge of diabetes self-management 11/12/2023 1512 by Gin Kay RN Outcome: Completed 11/12/2023 1132 by Gin Kay RN Outcome: Progressing Problem: Injury Risk, Abnormal Serum Glucose Level Goal: Glucose level within specified parameters 11/12/2023 1512 by Gin Kay RN Outcome: Completed 11/12/2023 1132 by Gin Kay RN Outcome: Progressing * Care Plan - Gin Kay RN - 11/12/2023 11:32 AM EDT Problem: Skin Integrity - Impaired Goal: Decrease in wound size Outcome: Progressing Goal: Skin integrity intact Outcome: Progressing Problem: Falls - Risk of Goal: Absence of falls Description: Avoid the routine use of bedrails or physical restraints as a fall- prevention intervention. Outcome: Progressing Goal: Knowledge of fall prevention Outcome: Progressing Problem: Pain - Acute Goal: Communication of presence of pain Description: For patients who are pharmacologically paralyzed and unresponsive to pain via behavioral cues, behavioral pain scales should not be used. Outcome: Progressing Goal: Control of acute pain Description: Pain management should include both nonpharmacologic and pharmacologic interventions. Outcome: Progressing Problem: Mobility - Impaired Goal: Able to ambulate independently Outcome: Progressing Goal: Knowledge of need for increased mobility Outcome: Progressing Problem: Admission - General, Adult Goal: Able to cope with hospitalization Outcome: Progressing Goal: Knowledge of infection control procedures Outcome: Progressing Goal: Participation in care planning Outcome: Progressing Problem: Discharge Planning Goal: Knowledge of diabetes self-management Outcome: Progressing Problem: Injury Risk, Abnormal Serum Glucose Level Goal: Glucose level within specified parameters Outcome: Progressing * Care Plan - Bridget Downing RN - 11/12/2023 1:02 AM EDT Problem: Skin Integrity - Impaired Goal: Decrease in wound size Outcome: Progressing Problem: Falls - Risk of Goal: Absence of falls Description: Avoid the routine use of bedrails or physical restraints as a fall- prevention intervention. Outcome: Progressing Goal: Knowledge of fall prevention Outcome: Progressing Problem: Pain - Acute Goal: Communication of presence of pain Description: For patients who are pharmacologically paralyzed and unresponsive to pain via behavioral cues, behavioral pain scales should not be used. Outcome: Progressing Goal: Control of acute pain Description: Pain management should include both nonpharmacologic and pharmacologic interventions. Outcome: Progressing Problem: Mobility - Impaired Goal: Able to ambulate independently Outcome: Progressing Goal: Knowledge of need for increased mobility Outcome: Progressing Problem: Admission - General, Adult Goal: Able to cope with hospitalization Outcome: Progressing Goal: Knowledge of infection control procedures Outcome: Progressing Goal: Participation in care planning Outcome: Progressing Problem: Discharge Planning Goal: Knowledge of diabetes self-management Outcome: Progressing * Care Plan - Lidia Lundy RN - 11/11/2023 10:24 AM EDT Problem: Skin Integrity - Impaired Goal: Decrease in wound size Outcome: Progressing Goal: Skin integrity intact Outcome: Progressing Problem: Falls - Risk of Goal: Absence of falls Description: Avoid the routine use of bedrails or physical restraints as a fall- prevention intervention. Outcome: Progressing Goal: Knowledge of fall prevention Outcome: Progressing Problem: Pain - Acute Goal: Communication of presence of pain Description: For patients who are pharmacologically paralyzed and unresponsive to pain via behavioral cues, behavioral pain scales should not be used. Outcome: Progressing Goal: Control of acute pain Description: Pain management should include both nonpharmacologic and pharmacologic interventions. Outcome: Progressing Problem: Mobility - Impaired Goal: Able to ambulate independently Outcome: Progressing Goal: Knowledge of need for increased mobility Outcome: Progressing Problem: Admission - General, Adult Goal: Able to cope with hospitalization Outcome: Progressing Goal: Knowledge of infection control procedures Outcome: Progressing Goal: Participation in care planning Outcome: Progressing Problem: Discharge Planning Goal: Knowledge of diabetes self-management Outcome: Progressing Problem: Injury Risk, Abnormal Serum Glucose Level Goal: Glucose level within specified parameters Outcome: Progressing * Care Plan - Estevan Oswald RN - 11/10/2023 8:57 PM EDT Problem: Skin Integrity - Impaired Goal: Decrease in wound size Outcome: Progressing Goal: Skin integrity intact Outcome: Progressing Problem: Falls - Risk of Goal: Absence of falls Description: Avoid the routine use of bedrails or physical restraints as a fall- prevention intervention. Outcome: Progressing Goal: Knowledge of fall prevention Outcome: Progressing Problem: Pain - Acute Goal: Communication of presence of pain Description: For patients who are pharmacologically paralyzed and unresponsive to pain via behavioral cues, behavioral pain scales should not be used. Outcome: Progressing Goal: Control of acute pain Description: Pain management should include both nonpharmacologic and pharmacologic interventions. Outcome: Progressing Problem: Mobility - Impaired Goal: Able to ambulate independently Outcome: Progressing Problem: Mobility - Impaired Goal: Knowledge of need for increased mobility Outcome: Progressing Problem: Admission - General, Adult Goal: Able to cope with hospitalization Outcome: Progressing Goal: Knowledge of infection control procedures Outcome: Progressing Goal: Participation in care planning Outcome: Progressing Problem: Discharge Planning Goal: Knowledge of diabetes self-management Outcome: Progressing Problem: Injury Risk, Abnormal Serum Glucose Level Goal: Glucose level within specified parameters Outcome: Progressing documented in this encounterMemorial Health [id number] NoteICM Web Page Developer Opening Interview Progress Note Presents for evaluation/treatment of Cellulitis of right lower leg [L03.115]. Patient has a past medical history of Arthritis, Back pain, Charcot's arthropathy (2015), COVID-19 (07/26/2020), Diabetes (DX- 1996), Fall (06/30/2017), Hypercholesteremia, Hypothyroid, Irregular heart beat (07/31/2017), Neurogenic claudication due to lumbar spinal stenosis (October 2017), Peripheral neuropathy, Peripheral vascular disease (HC CODE) (2010), and Unspecified essential hypertension. Met with Hanna Nelson who is a 83 year old female at bedside. Introduced self and role of cyanide case hardener; asked for and received permission to discuss discharge planning with visitors present in room. Discussed current living situation/dc plans. Patient lives with Alone in a Private residence, with 2 floors, Bathroom accessible, 1 entry step. If in an apartment, do you have elevator: Not applicable. Baseline Activity: Independent, Drives Car Current DME Equipment:DME: Front wheeled walker, Cane, Bedside commode, Elevated toilet seat, Grab bar, Lift chair, Blood glucose meter/supplies Current home oxygen needs (Frequency, Liters, supplier): none Passport/Waiver Services: none If yes, cyanide case hardener name/number:n/a Transportation needs at discharge: car, son Jose Declines home care follow-up at discharge. PCP Name : Lisy Pace [phone] Patient to have prescriptions filled at [facility] Outpt Pharmacy at dc: Yes If no, what pharmacy do you currently use: n/a DC plans: [place]ACK[place]: Nov 12, 2023 Discharge disposition: Home Transportation needs at discharge: car, family Primary support person name/ relationship: Sonsjose and Hi Barriers to D/C : DIEGO. Will switch to PO and d/c Additional Needs: None Patient and family expresses agreement in discharge plan. LOCKETT/IM Document Type Received On Received By Description [facility] IM Copy of Signed 11/12/23 Lexis Robison RN [facility] IM Copy of Signed 10/16/20 Indu Vega RN Will monitor patient's progress and readiness for discharge. Electronically signed by: Lexis Robison RN, Web Page Developer, Phone [phone], 11/12/2023 11:58 AM Weekday Office Hours: 8:30-5:00. Holiday/Weekends [phone]. For urgent needs between 5p-7p, please call [phone]. If after 7pm, please call [facility] at [phone] or [facility] at [phone].[facility]04-02-2024 History of Present illness Narrative* Lexis Robison RN - 11/12/2023 11:58 AM EDT [facility] Web Page Developer Opening Interview Progress Note Presents for evaluation/treatment of Cellulitis of right lower leg [L03.115]. 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 Met with Hanna Nelson who is a 83 year old female at bedside. Introduced self and role of cyanide case hardener; asked for and received permission to discuss discharge planning with visitors present in room. Discussed current living situation/dc plans. Patient lives with Alone in a Private residence, with 2 floors, Bathroom accessible, 1 entry step. If in an apartment, do you have elevator: Not applicable. Baseline Activity: Independent, Drives Car Current DME Equipment:DME: Front wheeled walker, Cane, Bedside commode, Elevated toilet seat, Grab bar, Lift chair, Blood glucose meter/supplies Current home oxygen needs (Frequency, Liters, supplier): none Passport/Waiver Services: none If yes, cyanide case hardener name/number:n/a Transportation needs at discharge: car, amber Velazquez Declines home care follow-up at discharge. PCP Name : Lisy Pace [phone] Patient to have prescriptions filled at [facility] Outpt Pharmacy at pr: Yes If no, what pharmacy do you currently use: n/a DC plans: MACKENZIE: Nov 12, 2023 Discharge disposition: Home Transportation needs at discharge: car, family Primary support person name/ relationship: jose Gr and Hi Barriers to D/C : DIEGO. Will switch to PO and d/c Additional Needs: None Patient and family expresses agreement in discharge plan. [facility]/IM Document Type Received On Received By Description [facility] IM Copy of Signed 11/12/23 Lexis Robison RN [facility] IM Copy of Signed 10/16/20 Indu Vega, RN Will monitor patient's progress and readiness for discharge. Electronically signed by: Lexis Robison RN, Web Page Developer, Phone [phone], 11/12/2023 11:58 AM Weekday Office Hours: 8:30-5:00. Holiday/Weekends [phone]. For urgent needs between 5p-7p, please call [phone]. If after 7pm, please call [facility] at [phone] or [facility] at [phone]. * Liss Choi, [facility] - 11/12/2023 11:32 AM EDT [facility] Pharmacy Referral Sign-off 11/12/2023 Patient's Name: Hanna Royal Leslie Referring Provider: Bautista White MD Thank you for allowing pharmacy to participate in the management of your patient's vancomycin therapy. At this time, pharmacy will sign-off from the case as the therapy has been discontinued. Please consider referral to pharmacy again if the need arises. Electronically signed by: Liss Choi RPH, 11/12/2023 11:32 AM * Mary Solis, DO - 11/12/2023 8:27 AM EDT Images from the original note were not included. [facility] Hospitalist Progress Note Disposition/Assessment and Plan Disposition: home Reason for continued hospitalization:Specialists- awaiting clearance that patient stable for discharge per specialists Assessment and Plan : Hanna Nelson is a 83 year old female, with a past medical history of type 2 diabetes, previous and recurrent diabetic foot ulcer right foot, hypertension, hyperlipidemia, paroxysmal atrial fibrillation on Eliquis and peripheral arterial disease who presents with right lower extremity cellulitis. Principal Problem: Cellulitis of right lower leg Active Problems: Primary hypertension Type 2 diabetes mellitus treated with insulin (HC CODE) Hypothyroidism due to acquired atrophy of thyroid Paroxysmal atrial fibrillation (HC CODE) Peripheral vascular disease (HC CODE) NAYELY, resolved Mixed hyperlipidemia Continue IV antibiotic, ancef, and doxy PO Tighter BS control. Insulin dosing changed in last 24 hours. Active surveillance. Increase activity as tolerate DVT Prophylaxis: Apixaban Code Status: Orders Placed This Encounter Total Support Subjective The patient S&E. Objective Data I's and O's: Intake/Output Summary (Last 24 hours) at 11/12/2023 0827 Last data filed at 11/12/2023 0627 Gross per 24 hour Intake 480 ml Output -- Net 480 ml Baseline Weight: 93 kg (205 lb) (11/10/23 1641) Most recent Weight: 95.3 kg (210 lb 1.6 oz) (11/12/23 06) Last Bowel Movement: 11/11/23 (11/11/231943) Vital Signs: Temp: 97.6 F (36.4 C) (11/11/231943) Temp Min: 97.6 F (36.4 C) Min taken time: 11/11/231943 Max: 97.6 F (36.4 C) Max taken time: 11/11/231943 BP: 115/59 (11/11/231943) Pulse: 67 (11/11/231943) Resp: 16 (11/11/231943) SpO2: 98 % (11/11/231943) Physical Examination: GEN: Awake and alert in NAD, appears given age. Cardio/Vasc: peripheral pulses equal BL and palpable. Lung: symmetric chest rise with breath. GI: abdominal is not distended. Rectal exam deferred. NEURO: cranial nerves appear grossly intact PSYCH: no SI or HI Medications Current Facility-Administered Medications Medication Dose Route Frequency Provider Last Rate Last Admin doxycycline MONOhydrate (MONODOX) capsule 100 mg 100 mg Oral Q12H Jalil Blanton MD 100 mg at 11/11/232142 ceFAZolin (ANCEF) 2 g in Dextrose 50 ml IVPB (PREMIX) 2 g Intravenous Q8H Jalil Blanton MD 100 mL/hr at 11/12/23 0600 2 g at 11/12/23 0600 insulin glargine (LANTUS) Subcutaneous INJ 25 Units 25 Units Subcutaneous Daily at 2100 Jalil Blanton MD 25 Units at 11/11/23 2217 insulin lispro (HumaLOG) injection 3 Units 3 Units Subcutaneous TID with Meals Jalil Blanton MD 3 Units at 11/11/23 1700 apixaban (ELIQUIS) tablet 5 mg 5 mg Oral BID Bautista White MD 5 mg at 11/11/232142 atenoloL (TENORMIN) tablet 50 mg 50 mg Oral BID Bautista White MD 50 mg at 11/11/23 170 AtorvaSTATin (LIPITOR) tablet 40 mg 40 mg Oral Daily Bautista White MD 40 mg at 11/11/23 0930 fenofibrate nanocrystallized (TRICOR) tablet 145 mg 145 mg Oral Daily Bautista White MD 145mg at 11/11/23 0931 gabapentin (NEURONTIN) capsule 300 mg 300 mg Oral BID Bautista White MD 300 mg at 11/11/23 214 multivitamin with folic acid (THERAGRAN) 400 mcg tablet 1 Tab 1 Tab Oral Daily Bautista White MD 1 Tab at 11/11/23 0931 HYDROcodone-acetaminophen (NORCO) 5-325 mg tablet 1 Tab 1 Tab Oral Q8H PRN Bautista White MD levothyroxine (SYNTHROID) tablet 112 mcg 112 mcg Oral AC Breakfast Bautista White MD 112 mcg at 11/12/23 0555 oxybutynin (DITROPAN XL) SR-tablet 10 mg 10 mg Oral Daily Bautista White MD 10 mg at 11/11/23 0931 dextrose (GLUTOSE) gel 15 g Carb 15 g Carb Oral PRN Bautista White MD dextrose 50 % in water (D50W) intravenous syringe 5-12.5 g 5-12.5 g IV Push PRN Bautista White MD glucagon injection 1 mg 1 mg Subcutaneous PRN Bautista White MD insulin lispro (HumaLOG) injection 0-9 Units 0-9 Units Subcutaneous TID w/Meals, HS & 0200 Bautista White MD 5 Units at 11/11/23 2144 saline flush 10 mL IV Push Q12H Bautista White MD 1 Syringe at 11/11/23 2205 saline flush 10 mL IV Push PRN Bautista White MD NaCl 0.9% 1,000 mL 1,000 mL Intravenous Continuous PRN Bautista White MD 10 mL/hr at 11/11/23 2140 1,000 mL at 11/11/23 2140 acetaminophen (TYLENOL) tablet 650 mg 650 mg Oral Q4H PRN Bautista White MD Or acetaminophen (TYLENOL) suppository 650 mg 650 mg Rectal Q4H PRN Bautista White MD ondansetron (ZOFRAN ODT) RAPID DISSOLVING tablet 4 mg 4 mg Oral Q6H PRN Bautista White MD Or ondansetron (ZOFRAN) injection 4 mg 4 mg IV Push Q6H PRN Bautista White MD bisacodyL (DULCOLAX) enteric-coated tablet 5 mg 5 mg Oral Daily PRN Bautista White MD Or bisacodyL (DULCOLAX) suppository 10 mg 10 mg Rectal Daily PRN Bautista White MD amLODIPine (NORVASC) tablet 5 mg 5 mg Oral Daily Bautista White MD 5 mg at 11/11/23 0930 Diagnostic Data: Labs, imaging, other studies: reviewed Signature Electronically signed by: Mary Solis DO, 11/12/2023 8:27 AM * Jalil Blanton MD - 11/11/2023 1:17 PM EDT Images from the original note were not included. [facility] Hospitalist Progress Note 11/11/2023 Patient Identifier/Hospitalist Patient: Hanna Nelson; 1940 I saw and examined the patient on 11/11/2023 at 1040 in 111/111-1. Hospitalist: Jalil Blanton MD Please contact through [email or web address] Secure Chat Disposition/Assessment and Plan Disposition: Likely home 24 hours Barriers to discharge: Remains on IV antibiotics Assessment: Hanna Nelson is a 83 year old female, with a past medical history of type 2 diabetes, previous and recurrent diabetic foot ulcer right foot, hypertension, hyperlipidemia, paroxysmal atrial fibrillation on Eliquis and peripheral arterial disease who presents with right lower extremity cellulitis. Hospital day# 1 LACE Score: Principal Problem: Cellulitis of right lower leg Right foot plantar ulcer Acute kidney injury Type 2 diabetes Hyperlipidemia Paroxysmal atrial fibrillation on anticoagulation Essential hypertension Hypothyroidism Peripheral arterial disease Plan: -Patient with some improvement overnight on IV cefepime and vancomycin - Still with significant cellulitis, would benefit from ongoing IV antibiotics - Elevate right lower extremity - Stop vancomycin and cefepime, transition to Ancef and oral doxycycline - Continue outpatient wound care follow-up - NAYELY resolved - Adjust insulin regimen, has been hyperglycemic, otherwise continue basal bolus regimen - May be able to go home tomorrow on oral antibiotics - Continue atenolol and amlodipine for hypertension which is stable - Continue home levothyroxine for hypothyroidism - Continue Lipitor and Tricor for mixed hyperlipidemia - Home dose Eliquis for A-fib/DVT prophylaxis - Full code - Discussed with bedside RN Medications Current Facility-Administered Medications Medication Dose Route Frequency Provider Last Rate Last Admin doxycycline MONOhydrate (MONODOX) capsule 100 mg 100 mg Oral Q12H Jalil Blanton MD ceFAZolin (ANCEF) 2 g in Dextrose 50 ml IVPB (PREMIX) 2 g Intravenous Q8H Jalil Blanton MD apixaban (ELIQUIS) tablet 5 mg 5 mg Oral BID Bautista White MD 5 mg at 11/11/23 0931 atenoloL (TENORMIN) tablet 50 mg 50 mg Oral BID Bautista White MD 50 mg at 11/11/23 0931 AtorvaSTATin (LIPITOR) tablet 40 mg 40 mg Oral Daily Bautista White MD 40 mg at 11/11/23 0930 fenofibrate nanocrystallized (TRICOR) tablet 145 mg 145 mg Oral Daily Bautista White MD 145mg at 11/11/23 0931 gabapentin (NEURONTIN) capsule 300 mg 300 mg Oral BID Bautista White MD 300 mg at 11/11/23 0931 multivitamin with folic acid (THERAGRAN) 400 mcg tablet 1 Tab 1 Tab Oral Daily Bautista White MD 1 Tab at 11/11/23 0931 HYDROcodone-acetaminophen (NORCO) 5-325 mg tablet 1 Tab 1 Tab Oral Q8H PRN Bautista White MD levothyroxine (SYNTHROID) tablet 112 mcg 112 mcg Oral AC Breakfast Bautista White MD 112 mcg at 11/11/23 0607 oxybutynin (DITROPAN XL) SR-tablet 10 mg 10 mg Oral Daily Bautista White MD 10 mg at 11/11/23 0931 insulin glargine (LANTUS) Subcutaneous INJ 20 Units 20 Units Subcutaneous Daily at 2100 Bautista White MD 20 Units at 11/10/232037 dextrose (GLUTOSE) gel 15 g Carb 15 g Carb Oral PRN Bautista White MD dextrose 50 % in water (D50W) intravenous syringe 5-12.5 g 5-12.5 g IV Push PRN Bautista White MD glucagon injection 1 mg 1 mg Subcutaneous PRN Bautista White MD insulin lispro (HumaLOG) injection 0-9 Units 0-9 Units Subcutaneous TID w/Meals, HS & 0200 Bautista White MD 3 Units at 11/11/23 0931 saline flush 10 mL IV Push Q12H Bautista White MD 1 Syringe at 11/11/23 0935 saline flush 10 mL IV Push PRN Bautista White MD NaCl 0.9% 1,000 mL 1,000 mL Intravenous Continuous PRN Bautista White MD acetaminophen (TYLENOL) tablet 650 mg 650 mg Oral Q4H PRN Bautista White MD Or acetaminophen (TYLENOL) suppository 650 mg 650 mg Rectal Q4H PRN Bautista White MD ondansetron (ZOFRAN ODT) RAPID DISSOLVING tablet 4 mg 4 mg Oral Q6H PRN Bautista White MD Or ondansetron (ZOFRAN) injection 4 mg 4 mg IV Push Q6H PRN Bautista White MD bisacodyL (DULCOLAX) enteric-coated tablet 5 mg 5 mg Oral Daily PRN Bautista White MD Or bisacodyL (DULCOLAX) suppository 10 mg 10 mg Rectal Daily PRN Bautista White MD amLODIPine (NORVASC) tablet 5 mg 5 mg Oral Daily Bautista White MD 5 mg at 11/11/23 0930 Subjective The patient reports some improvement right lower extremity redness, no fevers overnight. No vomiting. Objective Data I's and O's: Intake/Output Summary (Last 24 hours) at 11/11/2023 1318 Last data filed at 11/11/2023 0600 Gross per 24 hour Intake 480 ml Output -- Net 480 ml Vital Signs: Temp: 98.1 F (36.7 C) (04/01/24 08) Temp Min: 98 F (36.7 C) Min taken time: 11/10/23 1641 Max: 98.1 F (36.7 C) Max taken time: 11/11/23 0800 BP: 107/58 (11/11/23799) Pulse: 79 (11/11/23799) Resp: 18 (11/11/23799) SpO2: 96 % (11/11/23799) Physical Examination: General: awake, alert, oriented and in no distress HEENT: Oropharynx moist, without lesion or exudate CV: no murmurs or rub; RRR PUL: lungs clear to auscultation ABD: Abdomen soft, non-tender. BS's present Neuro: non-focal Lower Extremities: Continued erythema to right lower extremity mid ordonez down with continued warmth,wound on plantar right foot without any significant purulent drainage Diagnostic Data: Labs, reviewed: Recent Results (from the past 24 hour(s)) CULTURE, BLOOD Collection Time: 11/10/23 5:46 PM Specimen: Venous.; Blood. Result Value Ref Range Culture NOTE BASIC METABOLIC PANEL Collection Time: 11/10/23 5:54 PM Result Value Ref Range Sodium 133 (L) 135 - 148 mEq/L Potassium 4.5 3.4 - 5.3 mEq/L Chloride 94 (L) 96 - 110 mEq/L Carbon Dioxide 24 19 - 32 mEq/L BUN 34 (H) 3 - 29 mg/dL Creatinine 1.5 (H) 0.5 - 1.2 mg/dL Glucose 430 (H) 70 - 99 mg/dL Calcium 9.4 8.5 - 10.5 mg/dL Anion Gap 15 5 - 15 BUN/CREAT Ratio 23 7 - 25 Estimated GFR 34 (L) >=60 mL/min/1.73m*2 SEPSIS LACTATE W/ REFLEX Collection Time: 11/10/23 5:54 PM Result Value Ref Range Lactic Acid 1.6 0.5 - 2.2 mmol/L MAGNESIUM, SERUM Collection Time: 11/10/23 5:54 PM Result Value Ref Range Magnesium 1.8 1.4 - 2.5 mg/dL PROTHROMBIN TIME Collection Time: 11/10/23 5:54 PM Result Value Ref Range Prothrombin Time 13.6 11.7 - 13.9 Sec INR 1.1 0.9 - 1.1 ACTIVATED PARTIAL THROMBOPLASTIN TIME Collection Time: 11/10/23 5:54 PM Result Value Ref Range APTT 22.8 (L) 24.5 - 35.2 Sec HEPATIC FUNCTION PANEL Collection Time: 11/10/23 5:54 PM Result Value Ref Range Bilirubin,Total 0.4 0.0 - 1.2 mg/dL Bilirubin, Direct 0.2 0.0 - 0.4 mg/dL Bilirubin, Indirect 0.2 0.0 - 1.2 mg/dL Total Protein 7.5 6.0 - 8.3 g/dL Albumin 4.0 3.5 - 5.2 g/dL AST 17 0 - 55 U/L ALT 21 0 - 60 U/L Alkaline Phosphatase 72 23 - 144 U/L COMPLETE BLOOD COUNT WITH DIFFERENTIAL Collection Time: 11/10/23 5:54 PM Result Value Ref Range WBC Count 9.9 3.5 - 10.9 K/uL RBC 3.71 (L) 3.95 - 5.26 M/uL Hemoglobin 11.7 11.2 - 15.7 g/dL Hematocrit 34.6 34.0 - 49.0 % MCV 93.3 80.0 - 100.0 fL MCH 31.5 26.0 - 34.0 pg MCHC 33.8 30.7 - 35.5 g/dL RDW 13.7 <=15.0 % Platelet Count 204 140 - 400 K/uL MPV 10.7 7.2 - 11.7 fL nRBC 0 <=0 /100 WBCs % Neutrophils 78.9 42.0 - 80.0 % % Lymphocytes 11.3 (L) 14.0 - 51.0 % % Monocytes 8.7 4.0 - 12.0 % % Eosinophils 0.4 0.0 - 5.0 % % Basophils 0.3 0.0 - 2.0 % % Immature Granulocyte 0.4 <1.0 % Absolute Neutrophils 7.8 (H) 1.8 - 7.5 K/uL Absolute Lymphocyte 1.1 0.9 - 4.1 K/uL Absolute Monocyte 0.9 0.2 - 1.0 K/uL Absolute Eosinophils 0.0 0.0 - 0.5 K/uL Absolute Basophil 0.0 0.0 - 0.3 K/uL Absolute Immature Granulocytes 0.0 0.0 - 0.1 K/uL Scan Result CULTURE, BLOOD Collection Time: 11/10/23 5:54 PM Specimen: Venous.; Blood. Result Value Ref Range Culture NOTE ERYTHROCYTE SEDIMENTATION RATE Collection Time: 11/10/23 5:54 PM Result Value Ref Range Sed Rate 22 0 - 30 mm/hr POC GLUCOSE Collection Time: 11/10/23 11:13 PM Result Value Ref Range POC Glucose 406 (H) 70 - 99 mg/dL Scan Result POC GLUCOSE Collection Time: 11/11/23 3:09 AM Result Value Ref Range POC Glucose 226 (H) 70 - 99 mg/dL Scan Result COMPREHENSIVE METABOLIC PANEL Collection Time: 11/11/23 6:06 AM Result Value Ref Range Sodium 138 135 - 148 mEq/L Potassium 4.4 3.4 - 5.3 mEq/L Chloride 106 96 - 110 mEq/L Carbon Dioxide 23 19 - 32 mEq/L BUN 37 (H) 3 - 29 mg/dL Creatinine 1.1 0.5 - 1.2 mg/dL Glucose 202 (H) 70 - 99 mg/dL Calcium 8.9 8.5 - 10.5 mg/dL AST 13 0 - 55 U/L ALT 16 0 - 60 U/L Alkaline Phosphatase 55 23 - 144 U/L Bilirubin,Total 0.3 0.0 - 1.2 mg/dL Total Protein 6.3 6.0 - 8.3 g/dL Albumin 3.4 (L) 3.5 - 5.2 g/dL Globulin 2.9 1.9 - 3.6 g/dL A/G Ratio 1.2 0.8 - 2.6 Anion Gap 9 5 - 15 BUN/CREAT Ratio 34 (H) 7 - 25 Estimated GFR 50 (L) >=60 mL/min/1.73m*2 PHOSPHORUS Collection Time: 11/11/23 6:06 AM Result Value Ref Range Phosphorus 3.1 2.1 - 4.3 mg/dL MAGNESIUM, SERUM Collection Time: 11/11/23 6:06 AM Result Value Ref Range Magnesium 1.9 1.4 - 2.5 mg/dL COMPLETE BLOOD COUNT WITH DIFFERENTIAL Collection Time: 11/11/23 6:06 AM Result Value Ref Range WBC Count 8.8 3.5 - 10.9 K/uL RBC 3.14 (L) 3.95 - 5.26 M/uL Hemoglobin 9.7 (L) 11.2 - 15.7 g/dL Hematocrit 29.5 (L) 34.0 - 49.0 % MCV 93.9 80.0 - 100.0 fL MCH 30.9 26.0 - 34.0 pg MCHC 32.9 30.7 - 35.5 g/dL RDW 13.9 <=15.0 % Platelet Count 197 140 - 400 K/uL MPV 11.3 7.2 - 11.7 fL nRBC 0 <=0 /100 WBCs % Neutrophils 59.0 42.0 - 80.0 % % Lymphocytes 22.2 14.0 - 51.0 % % Monocytes 12.8 (H) 4.0 - 12.0 % % Eosinophils 5.0 0.0 - 5.0 % % Basophils 0.5 0.0 - 2.0 % % Immature Granulocyte 0.5 <1.0 % Absolute Neutrophils 5.2 1.8 - 7.5 K/uL Absolute Lymphocyte 1.9 0.9 - 4.1 K/uL Absolute Monocyte 1.1 (H) 0.2 - 1.0 K/uL Absolute Eosinophils 0.4 0.0 - 0.5 K/uL Absolute Basophil 0.0 0.0 - 0.3 K/uL Absolute Immature Granulocytes 0.0 0.0 - 0.1 K/uL Scan Result POC GLUCOSE Collection Time: 11/11/23 7:47 AM Result Value Ref Range POC Glucose 227 (H) 70 - 99 mg/dL Scan Result POC GLUCOSE Collection Time: 11/11/23 12:37 PM Result Value Ref Range POC Glucose 298 (H) 70 - 99 mg/dL Scan Result All imaging reviewed Signature Electronically signed by: Jalil Blanton MD, 11/11/2023 1:18 PM * Gayle Oswald E - 11/11/2023 11:20 AM EDT Met with patient to discuss home health care. Patient declining home health, despite HCL explaining benefits of services and encouragement. Patient s reason for declining: Stated is very independent. Patient instructed that if they change their mind to please let their cyanide case hardener, physician, or bedside nurse know and they can contact us to revisit them. Physician notified: N/A Notified via: N/A Discussion with MD: N/A Electronically signed by: Gayle Oswald, 11/11/2023 11:20 AM * Gayle Oswald - 11/11/2023 8:15 AM EDT Patient to be assessed by Communication Professor for potential home care needs. Liaison will then meet with patient/caregiver to discuss home care services. Liaison will confirm if patient/caregiver is agreeable to home care services and verify agency preference. Once the home care agency has accepted the referral, the agency will be added to patient's follow-up provider list. Electronically signed by: Gayle Oswald, 11/11/2023 8:15 AM * Reuben Rizvi RPH - 11/11/2023 1:47 AM EDT [facility] Pharmacy Vancomycin Referral Referral Date: 11/10/23 Referring Provider: Bautista White Vancomycin start date: 11/10/2023 Current vancomycin dosing method: New Start PLAN: Vancomycin dosing method: Initiate trough dosing Vancomycin loading dose: 1,500 mg followed by: Vancomycin maintenance dose and schedule: Initiate 1000 mg every 24 hours -Therapeutic goal: trough of 10-15 mcg/mL Assessment: Indication: Cellulitis/SSTI Concurrent Nephrotoxins: N/A Reviewed microbiology results, trends in labs, urine output, and fever Dialysis dependent: N/A Rationale/Calculations: Estimated vancomycin Ke (hr ^-1): 0.0335 hr^-1 (11/11/2023 1:45 AM) Estimated vancomycin half-life (hr): 20.69 Recommended vancomycin dose (mg): 1000 mg Recommended frequency (hr): 24 Predicted vancomycin trough (mcg/mL): 12.44 Will continue to monitor and order vancomycin levels when appropriate. Electronically signed by: Reuben Rizvi RPH, 11/11/2023 1:48 AM [place] [id number] Note* Care Plan - Gin Kay RN - 11/12/2023 11:32 AM EDT Problem: Skin Integrity - Impaired Goal: Decrease in wound size Outcome: Progressing Goal: Skin integrity intact Outcome: Progressing Problem: Falls - Risk of Goal: Absence of falls Description: Avoid the routine use of bedrails or physical restraints as a fall- prevention intervention. Outcome: Progressing Goal: Knowledge of fall prevention Outcome: Progressing Problem: Pain - Acute Goal: Communication of presence of pain Description: For patients who are pharmacologically paralyzed and unresponsive to pain via behavioral cues, behavioral pain scales should not be used. Outcome: Progressing Goal: Control of acute pain Description: Pain management should include both nonpharmacologic and pharmacologic interventions. Outcome: Progressing Problem: Mobility - Impaired Goal: Able to ambulate independently Outcome: Progressing Goal: Knowledge of need for increased mobility Outcome: Progressing Problem: Admission - General, Adult Goal: Able to cope with hospitalization Outcome: Progressing Goal: Knowledge of infection control procedures Outcome: Progressing Goal: Participation in care planning Outcome: Progressing Problem: Discharge Planning Goal: Knowledge of diabetes self-management Outcome: Progressing Problem: Injury Risk, Abnormal Serum Glucose Level Goal: Glucose level within specified parameters Outcome: Progressing [facility]04-02-2024 [facility] Pharmacy Referral Sign-off 11/12/2023 Patient's Name: Hanna Nelson Referring Provider: Bautista White MD Thank you for allowing pharmacy to participate in the management of your patient's vancomycin therapy. At this time, pharmacy will sign-off from the case as the therapy has been discontinued. Please consider referral to pharmacy again if the need arises. Electronically signed by: Liss Choi [facility], 11/12/2023 11:[facility] Hospitalist Progress Note Disposition/Assessment and Plan Disposition: home Reason for continued hospitalization:Specialists- awaiting clearance that patient stable for discharge per specialists Assessment and Plan : Hanna Nelson is a 83 year old female, with a past medical history of type 2 diabetes, previous and recurrent diabetic foot ulcer right foot, hypertension, hyperlipidemia, paroxysmal atrial fibrillation on Eliquis and peripheral arterial disease who presents with right lower extremity cellulitis. Principal Problem: Cellulitis of right lower leg Active Problems: Primary hypertension Type 2 diabetes mellitus treated with insulin (HC CODE) Hypothyroidism due to acquired atrophy of thyroid Paroxysmal atrial fibrillation (HC CODE) Peripheral vascular disease (HC CODE) NAYELY, resolved Mixed hyperlipidemia Continue IV antibiotic, ancef, and doxy PO Tighter BS control. Insulin dosing changed in last 24 hours. Active surveillance. Increase activity as tolerate DVT Prophylaxis: Apixaban Code Status: Orders Placed This Encounter Total Support Subjective The patient S Objective Data I's and O's: Intake/Output Summary (Last 24 hours) at 11/12/2023826 Last data filed at 11/12/2023 0627 Gross per 24 hour Intake 480 ml Output -- Net 480 ml Baseline Weight: 93 kg (205 lb) (11/10/23 1641) Most recent Weight: 95.3 kg (210 lb 1.6 oz) (11/12/23 0603) Last Bowel Movement: 11/11/23 (11/11/231943) Vital Signs: Temp: 97.6 F (36.4 C) (11/11/231943) Temp Min: 97.6 F (36.4 C) Min taken time: 11/11/231943 Max: 97.6 F (36.4 C) Max taken time: 11/11/231943 BP: 115/59 (11/11/231943) Pulse: 67 (11/11/231943) Resp: 16 (11/11/231943) SpO2: 98 % (11/11/231943) Physical Examination: GEN: Awake and alert in NAD, appears given age. Cardio/Vasc: peripheral pulses equal BL and palpable. Lung: symmetric chest rise with breath. GI: abdominal is not distended. Rectal exam deferred. NEURO: cranial nerves appear grossly intact PSYCH: no SI or HI Medications Current Facility-Administered Medications Medication Dose Route Frequency Provider Last Rate Last Admin doxycycline MONOhydrate (MONODOX) capsule 100 mg 100 mg Oral Q12H Jalil Blanton MD 100 mg at 11/11/232142 ceFAZolin (ANCEF) 2 g in Dextrose 50 ml IVPB (PREMIX) 2 g Intravenous Q8H Jalil Blanton MD 100 mL/hr at 11/12/23 0600 2 g at 11/12/23 0600 insulin glargine (LANTUS) Subcutaneous INJ 25 Units 25 Units Subcutaneous Daily at 2100 Jalil Blanton MD 25 Units at 11/11/23 2217 insulin lispro (HumaLOG) injection 3 Units 3 Units Subcutaneous TID with Meals Jalil Blanton MD 3 Units at 11/11/23 1700 apixaban (ELIQUIS) tablet 5 mg 5 mg Oral BID Bautista White MD 5 mg at 11/11/23 214 atenoloL (TENORMIN) tablet 50 mg 50 mg Oral BID Bautista White MD 50 mg at 11/11/23 1700 AtorvaSTATin (LIPITOR) tablet 40 mg 40 mg Oral Daily Bautista White MD 40 mg at 11/11/23 0930 fenofibrate nanocrystallized (TRICOR) tablet 145 mg 145 mg Oral Daily Bautista White MD 145 mg at 11/11/23 0931 gabapentin (NEURONTIN) capsule 300 mg 300 mg Oral BID Bautista White MD 300 mg at 11/11/23 214 multivitamin with folic acid (THERAGRAN) 400 mcg tablet 1 Tab 1 Tab Oral Daily Bautista White MD 1 Tab at 11/11/23 0931 HYDROcodone-acetaminophen (NORCO) 5-325 mg tablet 1 Tab 1 Tab Oral Q8H PRN Bautista White MD levothyroxine (SYNTHROID) tablet 112 mcg 112 mcg Oral AC Breakfast Bautista White MD 112 mcg at 11/12/23 0555 oxybutynin (DITROPAN XL) SR-tablet 10 mg 10 mg Oral Daily Bautista White MD 10 mg at 11/11/23 0931 dextrose (GLUTOSE) gel 15 g Carb 15 g Carb Oral PRN Bautista White MD dextrose 50 % in water (D50W) intravenous syringe 5-12.5 g 5-12.5 g IV Push PRN Bautista White MD glucagon injection 1 mg 1 mg Subcutaneous PRN Bautista White MD insulin lispro (HumaLOG) injection 0-9 Units 0-9 Units Subcutaneous TID w/Meals, HS saline flush 10 mL IV Push Q12H Bautista White MD 1 Syringe at 11/11/23 2205 saline flush 10 mL IV Push PRN Bautista White MD NaCl 0.9% 1,000 mL 1,000 mL Intravenous Continuous PRN Bautista White MD 10 mL/hr at 11/11/23 2140 1,000 mL at 11/11/23 2140 acetaminophen (TYLENOL) tablet 650 mg 650 mg Oral Q4H PRN Bautista White MD Or acetaminophen (TYLENOL) suppository 650 mg 650 mg Rectal Q4H PRN Bautista White MD ondansetron (ZOFRAN ODT) RAPID DISSOLVING tablet 4 mg 4 mg Oral Q6H PRN Bautista White MD Or ondansetron (ZOFRAN) injection 4 mg 4 mg IV Push Q6H PRN Bautista White MD bisacodyL (DULCOLAX) enteric-coated tablet 5 mg 5 mg Oral Daily PRN Bautista White MD Or bisacodyL (DULCOLAX) suppository 10 mg 10 mg Rectal Daily PRN Bautista White (more content not included)...[facility]04-02-2024 Note* Care Plan - Bridget Downing RN - 11/12/2023 1:02 AM EDT Problem: Skin Integrity - Impaired Goal: Decrease in wound size Outcome: Progressing Problem: Falls - Risk of Goal: Absence of falls Description: Avoid the routine use of bedrails or physical restraints as a fall- prevention intervention. Outcome: Progressing Goal: Knowledge of fall prevention Outcome: Progressing Problem: Pain - Acute Goal: Communication of presence of pain Description: For patients who are pharmacologically paralyzed and unresponsive to pain via behavioral cues, behavioral pain scales should not be used. Outcome: Progressing Goal: Control of acute pain Description: Pain management should include both nonpharmacologic and pharmacologic interventions. Outcome: Progressing Problem: Mobility - Impaired Goal: Able to ambulate independently Outcome: Progressing Goal: Knowledge of need for increased mobility Outcome: Progressing Problem: Admission - General, Adult Goal: Able to cope with hospitalization Outcome: Progressing Goal: Knowledge of infection control procedures Outcome: Progressing Goal: Participation in care planning Outcome: Progressing Problem: Discharge Planning Goal: Knowledge of diabetes self-management Outcome: Progressing [id number] Discharge [facility]* Discharge Instructions * Trini Boyce RN - 11/11/2023 3:45 PM EDT You have been treated at [facility] for reasons of wound healing. WOUND CARE: With Dressing Changes - wash your hands prior to starting and after you finish and dispose of old materials properly. The following wound care procedure has been ordered for you in treating your wound: Wound location: Right plantar foot Cleanse with: saline/wound cleanser Apply to wound: collagen powder, silver alginate Secure with: bordered foam Change Dressing: M-W-F Wear diabetic shoe insert with additional C-felt padding whenever walking. Return: 11/25/2023 SPECIAL INSTRUCTIONS: Nutrition: Increase dietary protein intake as instructed. Foot Wear: Follow specialty footwear instructions as advised. Off loading/Pressure Reduce: PRECAUTIONS: If any of the following occur, contact [phone] immediately or go to your nearest emergency room!! Fever over 101 degrees Increase in drainage Redness around wound and/or streaking Odor or drainage Increase in pain Increased swelling Bleeding Need for compression bandage changes (slippage, breakthrough drainage) IF YOU ARE A DIABETIC: Gently dry well including between your toes Inspect feet/legs DAILY for skin problems, blisters, etc. Wear socks/stockings at all times Tell us if you need assistance putting on your socks or shoes Elevate your feet often, if swelling reaches your legs Wear compression garments as instructed Call us if you are sick, have a cold or flu HOME MEDICATIONS AT DISCHARGE Warning, if you take acetaminophen products: No more than 3Gms or 3000mg of acetaminophen (Tylenol)should be taken daily (eg. 6 extra-strength Tylenol). Be aware that multiple medications contain tylenol products(eg.vicodin, lortab, percocet, darvocet, and nonaspirin pain relievers). FUTURE VISIT INFORMATION: Call us if you are unable to come, leave a message if unable to speak to a staff member Every effort will be made to keep your scheduled appointment, [facility] In that case we will reschedule your treatments as soon as possible. Your signature verifies that we have reviewed this document and that you understand the importance of the information above and acknowledge receipt of same. Failure to comply with these reminders mayresult in delay of your care and/or termination of treatment. If you have any questions, please call us at [phone] documented in this encounterMemorial Health [id number] [facility] Hospitalist Progress Note 11/11/2023 Patient Identifier/Hospitalist Patient: Hanna Nelson; 1940 I saw and examined the patient on 11/11/2023 at 1040 in 111/111-1. Hospitalist: Jalil Blanton MD Please contact through [email or web address] Secure Chat Disposition/Assessment and Plan Disposition: Likely home 24 hours Barriers to discharge: Remains on IV antibiotics Assessment: Hanna Nelson is a 83 year old female, with a past medical history of type 2 diabetes, previous and recurrent diabetic foot ulcer right foot, hypertension, hyperlipidemia, paroxysmal atrial fibrillation on Eliquis and peripheral arterial disease who presents with right lower extremity cellulitis. Hospital day# 1 LACE Score: Principal Problem: Cellulitis of right lower leg Right foot plantar ulcer Acute kidney injury Type 2 diabetes Hyperlipidemia Paroxysmal atrial fibrillation on anticoagulation Essential hypertension Hypothyroidism Peripheral arterial disease Plan: -Patient with some improvement overnight on IV cefepime and vancomycin - Still with significant cellulitis, would benefit from ongoing IV antibiotics - Elevate right lower extremity - Stop vancomycin and cefepime, transition to Ancef and oral doxycycline - Continue outpatient wound care follow-up - NAYELY resolved - Adjust insulin regimen, has been hyperglycemic, otherwise continue basal bolus regimen - May be able to go home tomorrow on oral antibiotics - Continue atenolol and amlodipine for hypertension which is stable - Continue home levothyroxine for hypothyroidism - Continue Lipitor and Tricor for mixed hyperlipidemia - Home dose Eliquis for A-fib/DVT prophylaxis - Full code - Discussed with bedside RN Medications Current Facility-Administered Medications Medication Dose Route Frequency Provider Last Rate Last Admin doxycycline MONOhydrate (MONODOX) capsule 100 mg 100 mg Oral Q12H Jalil Blanton MD ceFAZolin (ANCEF) 2 g in Dextrose 50 ml IVPB (PREMIX) 2 g Intravenous Q8H Jalil Blanton MD apixaban (ELIQUIS) tablet 5 mg 5 mg Oral BID Bautista White MD 5 mg at 11/11/23 0931 atenoloL (TENORMIN) tablet 50 mg 50 mg Oral BID Bautista White MD 50 mg at 11/11/23 0931 AtorvaSTATin (LIPITOR) tablet 40 mg 40 mg Oral Daily Bautista White MD 40 mg at 11/11/23 0930 fenofibrate nanocrystallized (TRICOR) tablet 145 mg 145 mg Oral Daily Bautista White MD 145 mg at 11/11/23 0931 gabapentin (NEURONTIN) capsule 300 mg 300 mg Oral BID Bautista White MD 300 mg at 11/11/23 0931 multivitamin with folic acid (THERAGRAN) 400 mcg tablet 1 Tab 1 Tab Oral Daily Bautista White MD 1 Tab at 11/11/23 0931 HYDROcodone-acetaminophen (NORCO) 5-325 mg tablet 1 Tab 1 Tab Oral Q8H PRN Bautista White MD levothyroxine (SYNTHROID) tablet 112 mcg 112 mcg Oral AC Breakfast Bautista White MD 112 mcg at 11/11/23 0607 oxybutynin (DITROPAN XL) SR-tablet 10 mg 10 mg Oral Daily Bautista White MD 10 mg at 11/11/23 0931 insulin glargine (LANTUS) Subcutaneous INJ 20 Units 20 Units Subcutaneous Daily at 2100 Bautista White MD 20 Units at 11/10/232037 dextrose (GLUTOSE) gel 15 g Carb 15 g Carb Oral PRN Bautista White MD dextrose 50 % in water (D50W) intravenous syringe 5-12.5 g 5-12.5 g IV Push PRN Bautista White MD glucagon injection 1 mg 1 mg Subcutaneous PRN Bautista White MD insulin lispro (HumaLOG) injection 0-9 Units 0-9 Units Subcutaneous TID w/Meals, HS saline flush 10 mL IV Push Q12H Bautista White MD 1 Syringe at 11/11/23 0935 saline flush 10 mL IV Push PRN Bautista White MD NaCl 0.9% 1,000 mL 1,000 mL Intravenous Continuous PRN Bautista White MD acetaminophen (TYLENOL) tablet 650 mg 650 mg Oral Q4H PRN Bautista White MD Or acetaminophen (TYLENOL) suppository 650 mg 650 mg Rectal Q4H PRN Bautista White MD ondansetron (ZOFRAN ODT) RAPID DISSOLVING tablet 4 mg 4 mg Oral Q6H PRN Bautista White MD Or ondansetron (ZOFRAN) injection 4 mg 4 mg IV Push Q6H PRN Bautista White MD bisacodyL (DULCOLAX) enteric-coated tablet 5 mg 5 mg Oral Daily PRN Bautista White MD Or bisacodyL (DULCOLAX) suppository 10 mg 10 mg Rectal Daily PRN Bautista White MD amLODIPine (NORVASC) tablet 5 mg 5 mg Oral Daily Bautista White MD 5 mg at 11/11/23 0930 Subjective The patient reports some improvement right lower extremity redness, no fevers overnight. No vomiting. Objective Data I's and O's: Intake/Output Summary (Last 24 hours) at 11/11/2023 1318 Last data filed at 11/11/2023 0600 Gross per 24 hour Intake 480 ml Output -- Net 480 ml Vital Signs: Temp: 98.1 F (36.7 C) (11/11/23 0800) Temp Min: 98 F (36.7 C) Min taken time: 11/10/23 1641 Max: 98.1 F (36.7 C) Max taken time: 11/11/23 (more content not included)...[facility]04-01-2024 Note* Care Plan - Lidia Lundy RN - 11/11/2023 10:24 AM EDT Problem: Skin Integrity - Impaired Goal: Decrease in wound size Outcome: Progressing Goal: Skin integrity intact Outcome: Progressing Problem: Falls - Risk of Goal: Absence of falls Description: Avoid the routine use of bedrails or physical restraints as a fall- prevention intervention. Outcome: Progressing Goal: Knowledge of fall prevention Outcome: Progressing Problem: Pain - Acute Goal: Communication of presence of pain Description: For patients who are pharmacologically paralyzed and unresponsive to pain via behavioral cues, behavioral pain scales should not be used. Outcome: Progressing Goal: Control of acute pain Description: Pain management should include both nonpharmacologic and pharmacologic interventions. Outcome: Progressing Problem: Mobility - Impaired Goal: Able to ambulate independently Outcome: Progressing Goal: Knowledge of need for increased mobility Outcome: Progressing Problem: Admission - General, Adult Goal: Able to cope with hospitalization Outcome: Progressing Goal: Knowledge of infection control procedures Outcome: Progressing Goal: Participation in care planning Outcome: Progressing Problem: Discharge Planning Goal: Knowledge of diabetes self-management Outcome: Progressing Problem: Injury Risk, Abnormal Serum Glucose Level Goal: Glucose level within specified parameters Outcome: Progressing [facility]04-01-2024 [facility] Vancomycin Referral Referral Date: 11/10/23 Referring Provider: Bautista White Vancomycin start date: 11/10/2023 Current vancomycin dosing method: New Start PLAN: Vancomycin dosing method: Initiate trough dosing Vancomycin loading dose: 1,500 mg followed by: Vancomycin maintenance dose and schedule: Initiate 1000 mg every 24 hours -Therapeutic goal: trough of 10-15 mcg/mL Assessment: Indication: Cellulitis/SSTI Concurrent Nephrotoxins: N/A Reviewed microbiology results, trends in labs, urine output, and fever Dialysis dependent: N/A Rationale/Calculations: Estimated vancomycin Ke (hr -1 (11/11/2023 1:45 AM) Estimated vancomycin half-life (hr): 20.69 Recommended vancomycin dose (mg): 1000 mg Recommended frequency (hr): 24 Predicted vancomycin trough (mcg/mL): 12.44 Will continue to monitor and order vancomycin levels when appropriate. Electronically signed by: Reuben Rizvi [facility], 11/11/2023 1:48 AM[facility] Note* Care Plan - Estevan Oswald RN - 11/10/2023 8:57 PM EDT Problem: Skin Integrity - Impaired Goal: Decrease in wound size Outcome: Progressing Goal: Skin integrity intact Outcome: Progressing Problem: Falls - Risk of Goal: Absence of falls Description: Avoid the routine use of bedrails or physical restraints as a fall- prevention intervention. Outcome: Progressing Goal: Knowledge of fall prevention Outcome: Progressing Problem: Pain - Acute Goal: Communication of presence of pain Description: For patients who are pharmacologically paralyzed and unresponsive to pain via behavioral cues, behavioral pain scales should not be used. Outcome: Progressing Goal: Control of acute pain Description: Pain management should include both nonpharmacologic and pharmacologic interventions. Outcome: Progressing Problem: Mobility - Impaired Goal: Able to ambulate independently Outcome: Progressing Problem: Mobility - Impaired Goal: Knowledge of need for increased mobility Outcome: Progressing Problem: Admission - General, Adult Goal: Able to cope with hospitalization Outcome: Progressing Goal: Knowledge of infection control procedures Outcome: Progressing Goal: Participation in care planning Outcome: Progressing Problem: Discharge Planning Goal: Knowledge of diabetes self-management Outcome: Progressing Problem: Injury Risk, Abnormal Serum Glucose Level Goal: Glucose level within specified parameters Outcome: Progressing [id number] History and physical note* Bautista White MD - 11/10/2023 7:02 PM EDT Images from the original note were not included. [facility] History & Physical 11/10/2023 Patient Identifier/Hospitalist Patient Name: Hanna Nelson : 1940 I saw and examined the patient on 11/10/2023 Hospitalist: Bautista White MD Spectralink: Orlinu Disposition/Assessment and Plan Disposition: Discharge in 1-3 days. Assessment/plan: Right lower extremity cellulitis. Likely secondary to right diabetic plantar/foot ulcer. Blood cultures have been ordered in the emergency room. Check MRSA PCR. Patient received a dose of Rocephin inER. Will start vancomycin and cefepime. Acute kidney injury. Likely prerenal azotemia. Hold/avoid nephrotoxic medications. Start gentle normal saline infusion and monitor renal function overnight. Uncontrolled diabetes type 2 with hyperglycemia. Hold oral diabetic agents. Start scheduled Lantus,medium dose sliding scale insulin. Monitor Accu-Chek closely and adjust insulin dose as needed. Pseudohyponatremia, secondary to hyperglycemia. Expect resolution of hyponatremia with correction of hyperglycemia. Other comorbidities: history of uncontrolled diabetes type 2, chronic right foot diabetic ulcer (plantar aspect), hypertension associated with diabetes, hyperlipidemia associated with diabetes, paroxysmal atrial fibrillation (on chronic anticoagulation with Eliquis), peripheral arterial disease, hyp othyroidism, osteoarthritis. DVT Prophylaxis: Eliquis Code Status: Full Subjective Chief Complaint: Right leg swelling, redness History of Present Illness: Hanna Nelson is an 83-year-old female with history of uncontrolled diabetes type 2, chronic right foot diabetic ulcer (plantar aspect), hypertension associated with diabetes, hyperlipidemia associated with diabetes, paroxysmal atrial fibrillation (on chronic anticoagu lation with Eliquis), peripheral arterial disease, hypothyroidism, osteoarthritis, who presents to the emergency room with complaints of right lower extremity erythema, swelling, with no associated fever or chills, onset earlier today. She has chronic right foot/plantar diabetic ulcer that has been closely monitored/managed at wound care clinic. X-ray-right foot obtained in the emergency room revealed soft tissue swelling but no acute pathology. Creatinine is slightly elevated at 1.5 (baseline 1.1), glucose 430, sodium 133. Sed rate is normal at 22. Review of Systems: 10 point review of systems has been completed and is negative unless noted above. Past Medical History: Diagnosis Date Arthritis Generalized Back pain Charcot's arthropathy 2016 Right Foot Ulcer COVID-19 07/26/2020 Diabetes DX- 1997 Type 2- On Metformin & Glyburide Fall 06/30/2017 Laceration to Scalp Hypercholesteremia On Lipitor Hypothyroid On Levothyroxine Irregular heart beat 07/31/2017 1 episode-ST done results negative Neurogenic claudication due to lumbar spinal stenosis October 2017 Peripheral neuropathy On Gabapentin Peripheral vascular disease (HC CODE) 2010 Unspecified essential hypertension On Amlodipine, Lisinopril & Atenolol Past Surgical History: Procedure Laterality Date CARDIAC STRESS TST,COMPLETE 08/01/2017 MVS- Irregular Heart Beat- Results Negative-EF>70% CAUDAL EPIDURAL BLOCK 09/02/2017 ECHO Historical 1987 [facility]- ? Why -Results Good EPIDURAL LUMBAR TRANSFORMINAL Left 03/25/2017 L3-L4 LAMINECTOMY DECOMPRESSION POSTERIOR 3 LEVEL N/A 10/22/2017 LAMINECTOMY DECOMPRESSION POSTERIOR 3 LEVEL performed by Adolfo Edwards MD at [facility] MAIN OR LIG/TRNSXJ FLP TUBE ABDL/VAG APPR UNI/BI Ligation or Transection of Fallopian Tubes, Unilat or Bilat LUMBAR TRANSFORAMINAL EPIDURAL 04/29/2017 L4-L5 Other Surgical History Left 01/24/2015 Left Foot Metatarsal Head Bone Biopsy per Dr Ann Vasquez @ [facility] Other Surgical History Right 10/17/2015 Irigation W/Sharp Excisional Debridement Right Foot. 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 per Dr Loaiza @ [facility] Other Surgical History 2009 Fractured Hip REMOVAL GALLBLADDER ~1970 [facility] WOUND VAC APPLICATION/CHANGE N/A 10/22/2017 WOUND VAC APPLICATION/CHANGE performed by Adolfo Edwards MD at [facility] MAIN OR Social History Socioeconomic History Marital status: Spouse name: Not on file Number of children: Not on file Years of education: Not on file Highest education level: Not on file Occupational History Not on file Tobacco Use Smoking status: Former Packs/day: 0.50 Years: 7.00 Additional pack years: 0.00 Total pack years: 3.50 Types: Cigarettes Quit date: 08/12/1964 Years since quittin.2 Smokeless tobacco: Never Vaping Use Vaping Use: Never used Substance and Sexual Activity Alcohol use: Yes Alcohol/week: 1.0 standard drink of alcohol Types: 1 Cans of beer per week Comment: monthly Drug use: No Sexual activity: Not on file Other Topics Concern Not on file Social History Narrative Not on file Social Determinants of Health Financial Resource Strain: Not on file Food Insecurity: Not on file Transportation Needs: Not on file Physical Activity: Not on file Stress: Not on file Social Connections: Not on file Intimate Partner Violence: Not on file Housing Stability: Not on file Family History Problem Relation Age of Onset Diabetes Father Heart Disease Father [place] Hypertension Father Cancer Father Prostate No Known Problems Mother No Known Problems Sister Allergies: Allergies Allergen Reactions Tape 1"X5yd [Adhesive Tape] Rash Redness. Avoids. Prefers paper tape Home Medications: No current facility-administered medications on file prior to encounter. Current Outpatient Medications on File Prior to Encounter Medication Sig Dispense Refill HYDROcodone-acetaminophen (NORCO) 5-325 mg tablet Take 1 Tab by mouth every 8 hours as needed for Pain 21 Tab 0 gabapentin (NEURONTIN) 300 mg capsule Take 1 Cap by mouth two times a day 180 Cap 3 fenofibrate (LOFIBRA) 160 mg tablet Take 1 Tab by mouth daily 90 Tab 3 glimepiride (AMARYL) 4 mg tablet Take 1 Tab by mouth two times a day 180 Tab 3 apixaban (ELIQUIS) 5 mg tablet Take 1 Tab by mouth two times a day 180 Tab 3 metFORMIN XR (GLUCOPHAGE XR) 500 mg SR-tablet 24 Hr Take 2 Tab by mouth twice a day before meals 360 Tab 3 AtorvaSTATin (LIPITOR) 40 mg tablet Take 1 Tab by mouth daily 90 Tab 3 atenoloL (TENORMIN) 50 mg tablet Take 1 Tab by mouth twice daily at 8am and 5pm 180 Tab 3 oxybutynin (DITROPAN XL) 10 mg SR-tablet 24 Hr Take 1 Tab by mouth daily 90 Tab 3 amLODIPine (NORVASC) 5 mg tablet Take 1 Tab by mouth daily 90 Tab 3 lisinopriL (PRINIVIL,ZESTRIL) 20 mg tablet Take 1 Tab by mouth two times a day 180 Tab 3 Blood Sugar Diagnostic Strip Qd to bid; dispense brand insurance will cover 100 Strip 11 levothyroxine (SYNTHROID) 112 mcg tablet Take 1 Tab by mouth daily before breakfast 90 Tab 3 HANDICAP PRIVILEGES TAG/STICKER Please issue a Handicap Privileges Tag/Sticker valid from 01/15/2023 to 01/16/2028 1 Each 0 lancets 30 gauge Misc by Miscellaneous route Qd to bid 100 Each 3 FOLIC ACID/MULTIVIT-MIN/LUTEIN (CENTRUM SILVER ORAL) Take 1 Tab by mouth daily. dulaglutide (TRULICITY) 1.5 mg/0.5 mL Pen Injector injection Inject 0.5 mL subcutaneously every 7 days (Patient not taking: Reported on 10/18/2023) 2 mL 11 methocarbamoL (ROBAXIN) 750 mg tablet Take 1 Tab by mouth three times a day as needed (Patient not taking: Reported on 11/10/2023) 60 Tab 5 Objective Exam: Vital Signs: Temp: 98 F (36.7 C) (11/10/231640) Temp Min: 98 F (36.7 C) Min taken time: 11/10/231640 Max: 98 F(36.7 C) Max taken time: 11/10/231640 BP: 137/59 (11/10/231820) Pulse: 90 (11/10/231820) Resp: 16 (11/10/231640) SpO2: 98 % (11/10/231820) General: Alert and oriented. Not in distress. Head: Normocephalic. Atraumatic. Eyes: No icteric sclera. EOMI. ENT: Oral mucosa moist. Trachea midline. Neck: No obvious masses or thyromegaly. Cardio: Normal S1S2, no MRG, RRR. Pulm: Clear bilaterally. No wheezes or crackles. Abdomen: Soft, nontender, nondistended, +BS. Musculoskeletal: Right lower extremity swelling, erythema. There is appearing ulcer (with surrounding erythema) on the plantar aspect of right foot. Neuro: No gross focal deficits noted. Moving extremities without difficulties. Psych: No agitation or anxiety. Diagnostic Data: Labs--Reviewed: Recent Results (from the past 24 hour(s)) BASIC METABOLIC PANEL Collection Time: 11/10/23 5:54 PM Result Value Ref Range Sodium 133 (L) 135 - 148 mEq/L Potassium 4.5 3.4 - 5.3 mEq/L Chloride 94 (L) 96 - 110 mEq/L Carbon Dioxide 24 19 - 32 mEq/L BUN 34 (H) 3 - 29 mg/dL Creatinine 1.5 (H) 0.5 - 1.2 mg/dL Glucose 430 (H) 70 - 99 mg/dL Calcium 9.4 8.5 - 10.5 mg/dL Anion Gap 15 5 - 15 BUN/CREAT Ratio 23 7 - 25 Estimated GFR 34 (L) >=60 mL/min/1.73m*2 SEPSIS LACTATE W/ REFLEX Collection Time: 11/10/23 5:54 PM Result Value Ref Range Lactic Acid 1.6 0.5 - 2.2 mmol/L MAGNESIUM, SERUM Collection Time: 11/10/23 5:54 PM Result Value Ref Range Magnesium 1.8 1.4 - 2.5 mg/dL PROTHROMBIN TIME Collection Time: 11/10/23 5:54 PM Result Value Ref Range Prothrombin Time 13.6 11.7 - 13.9 Sec INR 1.1 0.9 - 1.1 ACTIVATED PARTIAL THROMBOPLASTIN TIME Collection Time: 11/10/23 5:54 PM Result Value Ref Range APTT 22.8 (L) 24.5 - 35.2 Sec HEPATIC FUNCTION PANEL Collection Time: 11/10/23 5:54 PM Result Value Ref Range Bilirubin,Total 0.4 0.0 - 1.2 mg/dL Bilirubin, Direct 0.2 0.0 - 0.4 mg/dL Bilirubin, Indirect 0.2 0.0 - 1.2 mg/dL Total Protein 7.5 6.0 - 8.3 g/dL Albumin 4.0 3.5 - 5.2 g/dL AST 17 0 - 55 U/L ALT 21 0 - 60 U/L Alkaline Phosphatase 72 23 - 144 U/L COMPLETE BLOOD COUNT WITH DIFFERENTIAL Collection Time: 11/10/23 5:54 PM Result Value Ref Range WBC Count 9.9 3.5 - 10.9 K/uL RBC 3.71 (L) 3.95 - 5.26 M/uL Hemoglobin 11.7 11.2 - 15.7 g/dL Hematocrit 34.6 34.0 - 49.0 % MCV 93.3 80.0 - 100.0 fL MCH 31.5 26.0 - 34.0 pg MCHC 33.8 30.7 - 35.5 g/dL RDW 13.7 <=15.0 % Platelet Count 204 140 - 400 K/uL MPV 10.7 7.2 - 11.7 fL nRBC 0 <=0 /100 WBCs % Neutrophils 78.9 42.0 - 80.0 % % Lymphocytes 11.3 (L) 14.0 - 51.0 % % Monocytes 8.7 4.0 - 12.0 % % Eosinophils 0.4 0.0 - 5.0 % % Basophils 0.3 0.0 - 2.0 % % Immature Granulocyte 0.4 <1.0 % Absolute Neutrophils 7.8 (H) 1.8 - 7.5 K/uL Absolute Lymphocyte 1.1 0.9 - 4.1 K/uL Absolute Monocyte 0.9 0.2 - 1.0 K/uL Absolute Eosinophils 0.0 0.0 - 0.5 K/uL Absolute Basophil 0.0 0.0 - 0.3 K/uL Absolute Immature Granulocytes 0.0 0.0 - 0.1 K/uL Scan Result ERYTHROCYTE SEDIMENTATION RATE Collection Time: 11/10/23 5:54 PM Result Value Ref Range Sed Rate 22 0 - 30 mm/hr Imaging--Reviewed: XR FOOT RIGHT MINIMUM 3 VIEWS Result Date: 11/10/2023 Right foot History: CELLULITIS, COMPARISON: 05/06/2023 3 views of the foot. Soft tissue swelling. Chronic fusion of the tarsal joints. Spurring at the the tarsometatarsal joint region with joint spacenarrowing and sclerosis due to significant chronic degenerative change. Chronic deformity of the second metatarsophalangeal joint with probably adjacent dystrophic calcification. Moderate-sized spurring in the posterior plantar aspect of the calcaneus. Spurring in the medial aspect of the medial malleolus. IMPRESSION: Significant chronic changes. Soft tissue swelling. No acute fracture or focal discrete new bone erosion identified. Dictated by Liset Wilson MD, PhD Workstation ID:[id number] Signature Electronically signed by: Bautista White MD, 11/10/2023 7:02 PM [employer] Work Phone: [phone] History and physical note* Bautista White MD - 11/10/2023 7:02 PM EDT Images from the original note were not included. [facility] History & Physical 11/10/2023 Patient Identifier/Hospitalist Patient Name: Hanna Nelson : 1940 I saw and examined the patient on 11/10/2023 Hospitalist: Bautista White MD Spectralink: [place] Disposition/Assessment and Plan Disposition: Discharge in 1-3 days. Assessment/plan: Right lower extremity cellulitis. Likely secondary to right diabetic plantar/foot ulcer. Blood cultures have been ordered in the emergency room. Check MRSA PCR. Patient received a dose of Rocephin inER. Will start vancomycin and cefepime. Acute kidney injury. Likely prerenal azotemia. Hold/avoid nephrotoxic medications. Start gentle normal saline infusion and monitor renal function overnight. Uncontrolled diabetes type 2 with hyperglycemia. Hold oral diabetic agents. Start scheduled Lantus,medium dose sliding scale insulin. Monitor Accu-Chek closely and adjust insulin dose as needed. Pseudohyponatremia, secondary to hyperglycemia. Expect resolution of hyponatremia with correction of hyperglycemia. Other comorbidities: history of uncontrolled diabetes type 2, chronic right foot diabetic ulcer (plantar aspect), hypertension associated with diabetes, hyperlipidemia associated with diabetes, paroxysmal atrial fibrillation (on chronic anticoagulation with Eliquis), peripheral arterial disease, hyp othyroidism, osteoarthritis. DVT Prophylaxis: Eliquis Code Status: Full Subjective Chief Complaint: Right leg swelling, redness History of Present Illness: Hanna Nelson is an 83-year-old female with history of uncontrolled diabetes type 2, chronic right foot diabetic ulcer (plantar aspect), hypertension associated with diabetes, hyperlipidemia associated with diabetes, paroxysmal atrial fibrillation (on chronic anticoagu lation with Eliquis), peripheral arterial disease, hypothyroidism, osteoarthritis, who presents to the emergency room with complaints of right lower extremity erythema, swelling, with no associated fever or chills, onset earlier today. She has chronic right foot/plantar diabetic ulcer that has been closely monitored/managed at wound care clinic. X-ray-right foot obtained in the emergency room revealed soft tissue swelling but no acute pathology. Creatinine is slightly elevated at 1.5 (baseline 1.1), glucose 430, sodium 133. Sed rate is normal at 22. Review of Systems: 10 point review of systems has been completed and is negative unless noted above. Past Medical History: Diagnosis Date Arthritis Generalized Back pain Charcot's arthropathy 2016 Right Foot Ulcer COVID-19 07/26/2020 Diabetes DX- 1996 Type 2- On Metformin & Glyburide Fall 06/30/2017 Laceration to Scalp Hypercholesteremia On Lipitor Hypothyroid On Levothyroxine Irregular heart beat 07/31/2017 1 episode-ST done results negative Neurogenic claudication due to lumbar spinal stenosis October 2017 Peripheral neuropathy On Gabapentin Peripheral vascular disease (HC CODE) 2010 Unspecified essential hypertension On Amlodipine, Lisinopril & Atenolol Past Surgical History: Procedure Laterality Date CARDIAC STRESS TST,COMPLETE 08/01/2017 MVS- Irregular Heart Beat- Results Negative-EF>70% CAUDAL EPIDURAL BLOCK 09/02/2017 ECHO Historical 1987 [facility]- ? Why -Results Good EPIDURAL LUMBAR TRANSFORMINAL Left 03/25/2017 L3-L4 LAMINECTOMY DECOMPRESSION POSTERIOR 3 LEVEL N/A 10/22/2017 LAMINECTOMY DECOMPRESSION POSTERIOR 3 LEVEL performed by Adolfo Edwards MD at [facility] MAIN OR LIG/TRNSXJ FLP TUBE ABDL/VAG APPR UNI/BI Ligation or Transection of Fallopian Tubes, Unilat or Bilat LUMBAR TRANSFORAMINAL EPIDURAL 04/29/2017 L4-L5 Other Surgical History Left 01/24/2015 Left Foot Metatarsal Head Bone Biopsy per Dr Ann Vasquez @ [facility] Other Surgical History Right 10/17/2015 Irigation W/Sharp Excisional Debridement Right Foot. 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 per Dr Loaiza @ [facility] Other Surgical History 2009 Fractured Hip REMOVAL GALLBLADDER ~1970 [facility] WOUND VAC APPLICATION/CHANGE N/A 10/22/2017 WOUND VAC APPLICATION/CHANGE performed by Adolfo Edwards MD at [facility] MAIN OR Social History Socioeconomic History Marital status: Spouse name: Not on file Number of children: Not on file Years of education: Not on file Highest education level: Not on file Occupational History Not on file Tobacco Use Smoking status: Former Packs/day: 0.50 Years: 7.00 Additional pack years: 0.00 Total pack years: 3.50 Types: Cigarettes Quit date: 08/12/1964 Years since quittin.2 Smokeless tobacco: Never Vaping Use Vaping Use: Never used Substance and Sexual Activity Alcohol use: Yes Alcohol/week: 1.0 standard drink of alcohol Types: 1 Cans of beer per week Comment: monthly Drug use: No Sexual activity: Not on file Other Topics Concern Not on file Social History Narrative Not on file Social Determinants of Health Financial Resource Strain: Not on file Food Insecurity: Not on file Transportation Needs: Not on file Physical Activity: Not on file Stress: Not on file Social Connections: Not on file Intimate Partner Violence: Not on file Housing Stability: Not on file Family History Problem Relation Age of Onset Diabetes Father Heart Disease Father [place] Hypertension Father Cancer Father Prostate No Known Problems Mother No Known Problems Sister Allergies: Allergies Allergen Reactions Tape 1"X5yd [Adhesive Tape] Rash Redness. Avoids. Prefers paper tape Home Medications: No current facility-administered medications on file prior to encounter. Current Outpatient Medications on File Prior to Encounter Medication Sig Dispense Refill HYDROcodone-acetaminophen (NORCO) 5-325 mg tablet Take 1 Tab by mouth every 8 hours as needed for Pain 21 Tab 0 gabapentin (NEURONTIN) 300 mg capsule Take 1 Cap by mouth two times a day 180 Cap 3 fenofibrate (LOFIBRA) 160 mg tablet Take 1 Tab by mouth daily 90 Tab 3 glimepiride (AMARYL) 4 mg tablet Take 1 Tab by mouth two times a day 180 Tab 3 apixaban (ELIQUIS) 5 mg tablet Take 1 Tab by mouth two times a day 180 Tab 3 metFORMIN XR (GLUCOPHAGE XR) 500 mg SR-tablet 24 Hr Take 2 Tab by mouth twice a day before meals 360 Tab 3 AtorvaSTATin (LIPITOR) 40 mg tablet Take 1 Tab by mouth daily 90 Tab 3 atenoloL (TENORMIN) 50 mg tablet Take 1 Tab by mouth twice daily at 8am and 5pm 180 Tab 3 oxybutynin (DITROPAN XL) 10 mg SR-tablet 24 Hr Take 1 Tab by mouth daily 90 Tab 3 amLODIPine (NORVASC) 5 mg tablet Take 1 Tab by mouth daily 90 Tab 3 lisinopriL (PRINIVIL,ZESTRIL) 20 mg tablet Take 1 Tab by mouth two times a day 180 Tab 3 Blood Sugar Diagnostic Strip Qd to bid; dispense brand insurance will cover 100 Strip 11 levothyroxine (SYNTHROID) 112 mcg tablet Take 1 Tab by mouth daily before breakfast 90 Tab 3 HANDICAP PRIVILEGES TAG/STICKER Please issue a Handicap Privileges Tag/Sticker valid from 01/15/2023 to 01/16/2028 1 Each 0 lancets 30 gauge Misc by Miscellaneous route Qd to bid 100 Each 3 FOLIC ACID/MULTIVIT-MIN/LUTEIN (CENTRUM SILVER ORAL) Take 1 Tab by mouth daily. dulaglutide (TRULICITY) 1.5 mg/0.5 mL Pen Injector injection Inject 0.5 mL subcutaneously every 7 days (Patient not taking: Reported on 10/18/2023) 2 mL 11 methocarbamoL (ROBAXIN) 750 mg tablet Take 1 Tab by mouth three times a day as needed (Patient not taking: Reported on 11/10/2023) 60 Tab 5 Objective Exam: Vital Signs: Temp: 98 F (36.7 C) (11/10/231640) Temp Min: 98 F (36.7 C) Min taken time: 11/10/231640 Max: 98 F(36.7 C) Max taken time: 11/10/231640 BP: 137/59 (11/10/231820) Pulse: 90 (11/10/231820) Resp: 16 (11/10/231640) SpO2: 98 % (11/10/231820) General: Alert and oriented. Not in distress. Head: Normocephalic. Atraumatic. Eyes: No icteric sclera. EOMI. ENT: Oral mucosa moist. Trachea midline. Neck: No obvious masses or thyromegaly. Cardio: Normal S1S2, no MRG, RRR. Pulm: Clear bilaterally. No wheezes or crackles. Abdomen: Soft, nontender, nondistended, +BS. Musculoskeletal: Right lower extremity swelling, erythema. There is appearing ulcer (with surrounding erythema) on the plantar aspect of right foot. Neuro: No gross focal deficits noted. Moving extremities without difficulties. Psych: No agitation or anxiety. Diagnostic Data: Labs--Reviewed: Recent Results (from the past 24 hour(s)) BASIC METABOLIC PANEL Collection Time: 11/10/23 5:54 PM Result Value Ref Range Sodium 133 (L) 135 - 148 mEq/L Potassium 4.5 3.4 - 5.3 mEq/L Chloride 94 (L) 96 - 110 mEq/L Carbon Dioxide 24 19 - 32 mEq/L BUN 34 (H) 3 - 29 mg/dL Creatinine 1.5 (H) 0.5 - 1.2 mg/dL Glucose 430 (H) 70 - 99 mg/dL Calcium 9.4 8.5 - 10.5 mg/dL Anion Gap 15 5 - 15 BUN/CREAT Ratio 23 7 - 25 Estimated GFR 34 (L) >=60 mL/min/1.73m*2 SEPSIS LACTATE W/ REFLEX Collection Time: 11/10/23 5:54 PM Result Value Ref Range Lactic Acid 1.6 0.5 - 2.2 mmol/L MAGNESIUM, SERUM Collection Time: 11/10/23 5:54 PM Result Value Ref Range Magnesium 1.8 1.4 - 2.5 mg/dL PROTHROMBIN TIME Collection Time: 11/10/23 5:54 PM Result Value Ref Range Prothrombin Time 13.6 11.7 - 13.9 Sec INR 1.1 0.9 - 1.1 ACTIVATED PARTIAL THROMBOPLASTIN TIME Collection Time: 11/10/23 5:54 PM Result Value Ref Range APTT 22.8 (L) 24.5 - 35.2 Sec HEPATIC FUNCTION PANEL Collection Time: 11/10/23 5:54 PM Result Value Ref Range Bilirubin,Total 0.4 0.0 - 1.2 mg/dL Bilirubin, Direct 0.2 0.0 - 0.4 mg/dL Bilirubin, Indirect 0.2 0.0 - 1.2 mg/dL Total Protein 7.5 6.0 - 8.3 g/dL Albumin 4.0 3.5 - 5.2 g/dL AST 17 0 - 55 U/L ALT 21 0 - 60 U/L Alkaline Phosphatase 72 23 - 144 U/L COMPLETE BLOOD COUNT WITH DIFFERENTIAL Collection Time: 11/10/23 5:54 PM Result Value Ref Range WBC Count 9.9 3.5 - 10.9 K/uL RBC 3.71 (L) 3.95 - 5.26 M/uL Hemoglobin 11.7 11.2 - 15.7 g/dL Hematocrit 34.6 34.0 - 49.0 % MCV 93.3 80.0 - 100.0 fL MCH 31.5 26.0 - 34.0 pg MCHC 33.8 30.7 - 35.5 g/dL RDW 13.7 <=15.0 % Platelet Count 204 140 - 400 K/uL MPV 10.7 7.2 - 11.7 fL nRBC 0 <=0 /100 WBCs % Neutrophils 78.9 42.0 - 80.0 % % Lymphocytes 11.3 (L) 14.0 - 51.0 % % Monocytes 8.7 4.0 - 12.0 % % Eosinophils 0.4 0.0 - 5.0 % % Basophils 0.3 0.0 - 2.0 % % Immature Granulocyte 0.4 <1.0 % Absolute Neutrophils 7.8 (H) 1.8 - 7.5 K/uL Absolute Lymphocyte 1.1 0.9 - 4.1 K/uL Absolute Monocyte 0.9 0.2 - 1.0 K/uL Absolute Eosinophils 0.0 0.0 - 0.5 K/uL Absolute Basophil 0.0 0.0 - 0.3 K/uL Absolute Immature Granulocytes 0.0 0.0 - 0.1 K/uL Scan Result ERYTHROCYTE SEDIMENTATION RATE Collection Time: 11/10/23 5:54 PM Result Value Ref Range Sed Rate 22 0 - 30 mm/hr Imaging--Reviewed: XR FOOT RIGHT MINIMUM 3 VIEWS Result Date: 11/10/2023 Right foot History: CELLULITIS, COMPARISON: 05/06/2023 3 views of the foot. Soft tissue swelling. Chronic fusion of the tarsal joints. Spurring at the the tarsometatarsal joint region with joint spacenarrowing and sclerosis due to significant chronic degenerative change. Chronic deformity of the second metatarsophalangeal joint with probably adjacent dystrophic calcification. Moderate-sized spurring in the posterior plantar aspect of the calcaneus. Spurring in the medial aspect of the medial malleolus. IMPRESSION: Significant chronic changes. Soft tissue swelling. No acute fracture or focal discrete new bone erosion identified. Dictated by Liset Wilson MD, PhD Workstation ID:[id number] Signature Electronically signed by: Bautista White MD, 11/10/2023 7:02 PM documented in this encounterMemorial Health [id number] Emergency department Note* Pinky Mratinez RN - 11/10/2023 6:52 PM EDT Patient provided damp wash cloth per request, denies any other needs at this time. Call light within reach. [facility] [phone] Emergency department Note* Pinky Martinez RN - 11/10/2023 6:52 PM EDT Patient provided damp wash cloth per request, denies any other needs at this time. Call light within reach. * Pinky Martinez RN - 11/10/2023 6:20 PM EDT ED REPORT SUMMARY ED ARRIVAL COMPLAINT(S) Cellulitis ADMISSION DIAGNOSIS No admission diagnoses are documented for this encounter. ED Location: [facility] [place] [place] Private Visit: No Language: Burmese Admitting: Patient Class: Level of Care: Service: (ADMISSION DETAILS SHOWN ABOVE IF AVAILABLE) REVIEW OF SYSTEMS NEUROLOGICAL GCS: 15 (Modifier: Not applicable) Level of Consciousness: Orientedx3, Cooperative, Awake, Alert Stroke like symptoms?: No LUE Movement: Follows commands RUE Movement: Follows commands LLE Movement: Follows command RLE Movement: Follows command RASS: 0 Alert and calm PULMONARY Respiratory Pattern : Unlabored Work of Breathing: Normal effort Upper Airway Sounds: Clear CARDIAC Heart Sounds: Regular Peripheral Edema: None noted Edema(mm): None Radial Left: Normal Radial Right: Normal Additional Pulses: No ABDOMEN (GI) Abdomen Assessment: Round, Soft, Non-tender Bowel Sounds: Normal URINE () INTEGUMENTARY Skin: Warm, Dry, [place] Color, cont: Cap refill < 2 sec Turgor: Fair Conditions: (RLE warm, red, nontender) Kait Scale: ALLERGIES Tape 1"x5yd [adhesive tape] PMHx Hanna has a past medical history of Arthritis, Back pain, Charcot's arthropathy (2015), COVID-19 (07/26/2020), Diabetes (DX- 1996), Fall (06/30/2017), Hypercholesteremia, Hypothyroid, Irregular heart beat (07/31/2017), Neurogenic claudication due to lumbar spinal stenosis (October 2017), Peripheralneuropathy, Peripheral vascular disease (HC CODE) (2010), and Unspecified essential hypertension. ADLs DIET: No diet orders on file ACCUCHECK: Unknown FUNCTIONAL LEVEL: WEIGHT: 93 kg (205 lb) FALL SCORE: 8 CODE STATUS Prior ( None on file.) ISOLATION No active isolations RECENT VITALS HR 103 BP 137/63 RR 16 SpO2 98 % Temp: 98 F (36.7 C) MAP: (91 mmHg) Oxygen: Flow: FiO2: Pain: 0/10 IV ACCESS 20g Right Antecubital IV patency confirmed within past hour?: Yes INFUSION(S) RUNNING ED MEDS Medications saline flush (has no administration in time range) cefTRIAXone (ROCEPHIN) 2 g in D5W 50 ml IVPB (PREMIX) (2 g Intravenous New Bag 11/10/23 1806) ABNORMAL RESULTS Abnormal Labs Reviewed BASIC METABOLIC PANEL - Abnormal; Notable for the following components: Result Value Sodium 133 (*) Chloride 94 (*) BUN 34 (*) Creatinine 1.5 (*) Glucose 430 (*) Estimated GFR 34 (*) All other components within normal limits ACTIVATED PARTIAL THROMBOPLASTIN TIME - Abnormal; Notable for the following components: APTT 22.8 (*) All other components within normal limits COMPLETE BLOOD COUNT WITH DIFFERENTIAL - Abnormal; Notable for the following components: RBC 3.71 (*) % Lymphocytes 11.3 (*) Absolute Neutrophils 7.8 (*) All other components within normal limits CONSULTS ORDERED (AT TIME OF FILING) None TO DO Scheduled Meds: cefTRIAXone (ROCEPHIN) IV Orderable, 2 g, Now COMMENTS: Data Validated/Updated: 11/10/2023 at 6:20 PM * Pinky Martinez RN - 11/10/2023 6:09 PM EDT Patient provided cup of water, approved by Dr. Rubio. * Pinky Martinez RN - 11/10/2023 5:46 PM EDT IV placement attempted, unsuccessful at this time. TL made aware. * Norberto Rubio MD - 11/10/2023 5:24 PM EDT Triage Chief Complaint: Chief Complaint Patient presents with Cellulitis HPI: Hanna Nelson is a 83 year old female who presents with right leg redness and swelling. This began today. She has history of recurrent cellulitis and son states she required hospitalization for this in the past and subsequent ECF placement. Patient does live independently. She states for the last week she has had some flulike symptoms with low-grade fever and diarrhea although thought it was unrelated. She has been dealing with an ulcer to the plantar aspect of the foot and is diabetic.She denies any pain. She is anticoagulated with Eliquis. REVIEW OF SYSTEMS: Otherwise negative, please see HPI PAST MEDICAL HISTORY: Past Medical History: Diagnosis Date Arthritis Generalized Back pain Charcot's arthropathy 2016 Right Foot Ulcer COVID-19 07/26/2020 Diabetes DX- 1997 Type 2- On Metformin & Glyburide Fall 06/30/2017 Laceration to Scalp Hypercholesteremia On Lipitor Hypothyroid On Levothyroxine Irregular heart beat 07/31/2017 1 episode-ST done results negative Neurogenic claudication due to lumbar spinal stenosis October 2017 Peripheral neuropathy On Gabapentin Peripheral vascular disease (HC CODE) 2010 Unspecified essential hypertension On Amlodipine, Lisinopril & Atenolol FAMILY HISTORY: Family History Problem Relation Age of Onset Diabetes Father Heart Disease Father [place] Hypertension Father Cancer Father Prostate No Known Problems Mother No Known Problems Sister SOCIAL HISTORY: Social History Socioeconomic History Marital status: Spouse name: Not on file Number of children: Not on file Years of education: Not on file Highest education level: Not on file Occupational History Not on file Tobacco Use Smoking status: Former Packs/day: 0.50 Years: 7.00 Additional pack years: 0.00 Total pack years: 3.50 Types: Cigarettes Quit date: 08/12/1964 Years since quittin.2 Smokeless tobacco: Never Vaping Use Vaping Use: Never used Substance and Sexual Activity Alcohol use: Yes Alcohol/week: 1.0 standard drink of alcohol Types: 1 Cans of beer per week Comment: monthly Drug use: No Sexual activity: Not on file Other Topics Concern Not on file Social History Narrative Not on file Social Determinants of Health Financial Resource Strain: Not on file Food Insecurity: Not on file Transportation Needs: Not on file Physical Activity: Not on file Stress: Not on file Social Connections: Not on file Intimate Partner Violence: Not on file Housing Stability: Not on file SURGICAL HISTORY: Past Surgical History: Procedure Laterality Date CARDIAC STRESS TST,COMPLETE 08/01/2017 MVS- Irregular Heart Beat- Results Negative-EF>70% CAUDAL EPIDURAL BLOCK 09/02/2017 ECHO Historical 1987 [facility]- ? Why -Results Good EPIDURAL LUMBAR TRANSFORMINAL Left 03/25/2017 L3-L4 LAMINECTOMY DECOMPRESSION POSTERIOR 3 LEVEL N/A 10/22/2017 LAMINECTOMY DECOMPRESSION POSTERIOR 3 LEVEL performed by Adolfo Edwards MD at [facility] MAIN OR LIG/TRNSXJ FLP TUBE ABDL/VAG APPR UNI/BI Ligation or Transection of Fallopian Tubes, Unilat or Bilat LUMBAR TRANSFORAMINAL EPIDURAL 04/29/2017 L4-L5 Other Surgical History Left 01/24/2015 Left Foot Metatarsal Head Bone Biopsy per Dr Ann Vasquez @ [facility] Other Surgical History Right 10/17/2015 Irigation W/Sharp Excisional Debridement Right Foot. 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 per Dr Loaiza @ [facility] Other Surgical History 2009 Fractured Hip REMOVAL GALLBLADDER ~1970 [facility] WOUND VAC APPLICATION/CHANGE N/A 10/22/2017 WOUND VAC APPLICATION/CHANGE performed by Adolfo Edwards MD at [facility] MAIN OR CURRENT MEDICATIONS: Current Facility-Administered Medications: saline flush, 10 mL, IV Push, PRN, Norberto Rubio MD cefTRIAXone (ROCEPHIN) 2 g in D5W 50 ml IVPB (PREMIX), 2 g, Intravenous, Now, Norberto Rubio MD Current Outpatient Medications: HYDROcodone-acetaminophen (NORCO) 5-325 mg tablet, Take 1 Tab by mouth every 8 hours as needed for Pain, Disp: 21 Tab, Rfl: 0 gabapentin (NEURONTIN) 300 mg capsule, Take 1 Cap by mouth two times a day, Disp: 180 Cap, Rfl: 3 fenofibrate (LOFIBRA) 160 mg tablet, Take 1 Tab by mouth daily, Disp: 90 Tab, Rfl: 3 glimepiride (AMARYL) 4 mg tablet, Take 1 Tab by mouth two times a day, Disp: 180 Tab, Rfl: 3 apixaban (ELIQUIS) 5 mg tablet, Take 1 Tab by mouth two times a day, Disp: 180 Tab, Rfl: 3 metFORMIN XR (GLUCOPHAGE XR) 500 mg SR-tablet 24 Hr, Take 2 Tab by mouth twice a day before meals, Disp: 360 Tab, Rfl: 3 AtorvaSTATin (LIPITOR) 40 mg tablet, Take 1 Tab by mouth daily, Disp: 90 Tab, Rfl: 3 atenoloL (TENORMIN) 50 mg tablet, Take 1 Tab by mouth twice daily at 8am and 5pm, Disp: 180 Tab, Rfl: 3 oxybutynin (DITROPAN XL) 10 mg SR-tablet 24 Hr, Take 1 Tab by mouth daily, Disp: 90 Tab, Rfl: 3 amLODIPine (NORVASC) 5 mg tablet, Take 1 Tab by mouth daily, Disp: 90 Tab, Rfl: 3 lisinopriL (PRINIVIL,ZESTRIL) 20 mg tablet, Take 1 Tab by mouth two times a day, Disp: 180 Tab, Rfl: 3 Blood Sugar Diagnostic Strip, Qd to bid; dispense brand insurance will cover, Disp: 100 Strip, Rfl:11 levothyroxine (SYNTHROID) 112 mcg tablet, Take 1 Tab by mouth daily before breakfast, Disp: 90 Tab,Rfl: 3 HANDICAP PRIVILEGES TAG/STICKER, Please issue a Handicap Privileges Tag/Sticker valid from 01/15/2023to 01/16/2028, Disp: 1 Each, Rfl: 0 lancets 30 gauge Misc, by Miscellaneous route Qd to bid, Disp: 100 Each, Rfl: 3 FOLIC ACID/MULTIVIT-MIN/LUTEIN (CENTRUM SILVER ORAL), Take 1 Tab by mouth daily., Disp: , Rfl: dulaglutide (TRULICITY) 1.5 mg/0.5 mL Pen Injector injection, Inject 0.5 mL subcutaneously every 7 days (Patient not taking: Reported on 10/18/2023), Disp: 2 mL, Rfl: 11 methocarbamoL (ROBAXIN) 750 mg tablet, Take 1 Tab by mouth three times a day as needed (Patient nottaking: Reported on 11/10/2023), Disp: 60 Tab, Rfl: 5 ALLERGIES: Tape 1"x5yd [adhesive tape] PHYSICAL EXAM: VITAL SIGNS: Per chart CONSTITUTIONAL: Alert, oriented, in no acute distress HEENT: Atraumatic, normocephalic, PERRL, EOMI, oral mucosa pink and moist, airway patent, no edema or erythema NECK: Supple, non-tender, no masses, trachea midline, no Bruits or JVD CARDIOVASCULAR: Normal rate and rhythm, No murmurs, No rubs, No gallops PULMONARY/CHEST: Clear to auscultation. Symmetrical breath sounds. Non-tender. ABDOMINAL: Non-distended, normal bowel sounds, soft, non-tender. BACK: No CVT, no midline tenderness, no external evidence of trauma. NEUROLOGIC: Non-focal EXTREMITIES: No clubbing, cyanosis, or edema. Good pulses throughout. Right lower extremity demonstrates warmth and erythema from the foot extending up to the level of the knee. There is a healed wound to the plantar aspect of the foot medially with some palpable fluctuance. SKIN: Warm, Dry, No erythema, No rash ED COURSE / MEDICAL DECISION MAKING: This is a 83 year old female who presents fairly extensive cellulitis to the right leg. Has low-grade tachycardia with heart rate of 100. Concern of early sepsis.Will obtain laboratory studies and x- ray of the foot. She will be given antibiotics. Laboratory studies reviewed. She will be hospitalized for further care. Independent Interpretation of Studies: None External Records Reviewed: None Discussion of Management: Hospitalist Escalation/De-Escalation of Care: Admitted Billable Critical Care Time: None or <30 minutes FINAL IMPRESSION: 1 --right lower extremity cellulitis * Arelis Rodriguez RN - 11/10/2023 4:38 PM EDT Pt son is in from out of town. He states pt has a history of cellulitis in her R leg. He states shehas been less sharp and less steady and didn't want to leave before she was checked out to make sure she is ok. Pt A&O x4 and ambulatory in triage. documented in this encounterMemorial Health [id number] Emergency department Note* Pinky Martinez RN - 11/10/2023 6:20 PM EDT ED REPORT SUMMARY ED ARRIVAL COMPLAINT(S) Cellulitis ADMISSION DIAGNOSIS No admission diagnoses are documented for this encounter. ED Location: [facility] [place] [place] Private Visit: No Language: Burmese Admitting: Patient Class: Level of Care: Service: (ADMISSION DETAILS SHOWN ABOVE IF AVAILABLE) REVIEW OF SYSTEMS NEUROLOGICAL GCS: 15 (Modifier: Not applicable) Level of Consciousness: Orientedx3, Cooperative, Awake, Alert Stroke like symptoms?: No LUE Movement: Follows commands RUE Movement: Follows commands LLE Movement: Follows command RLE Movement: Follows command RASS: 0 Alert and calm PULMONARY Respiratory Pattern : Unlabored Work of Breathing: Normal effort Upper Airway Sounds: Clear CARDIAC Heart Sounds: Regular Peripheral Edema: None noted Edema(mm): None Radial Left: Normal Radial Right: Normal Additional Pulses: No ABDOMEN (GI) Abdomen Assessment: Round, Soft, Non-tender Bowel Sounds: Normal URINE () INTEGUMENTARY Skin: Warm, Dry, [place] Color, cont: Cap refill < 2 sec Turgor: Fair Conditions: (RLE warm, red, nontender) Kait Scale: ALLERGIES Tape 1"x5yd [adhesive tape] PMHx Hanna has a past medical history of Arthritis, Back pain, Charcot's arthropathy (2015), COVID-19 (07/26/2020), Diabetes (DX- 1996), Fall (06/30/2017), Hypercholesteremia, Hypothyroid, Irregular heart beat (07/31/2017), Neurogenic claudication due to lumbar spinal stenosis (October 2017), Peripheralneuropathy, Peripheral vascular disease (HC CODE) (2010), and Unspecified essential hypertension. ADLs DIET: No diet orders on file ACCUCHECK: Unknown FUNCTIONAL LEVEL: WEIGHT: 93 kg (205 lb) FALL SCORE: 8 CODE STATUS Prior ( None on file.) ISOLATION No active isolations RECENT VITALS HR 103 BP 137/63 RR 16 SpO2 98 % Temp: 98 F (36.7 C) MAP: (91 mmHg) Oxygen: Flow: FiO2: Pain: 0/10 IV ACCESS 20g Right Antecubital IV patency confirmed within past hour?: Yes INFUSION(S) RUNNING ED MEDS Medications saline flush (has no administration in time range) cefTRIAXone (ROCEPHIN) 2 g in D5W 50 ml IVPB (PREMIX) (2 g Intravenous New Bag 11/10/23 1806) ABNORMAL RESULTS Abnormal Labs Reviewed BASIC METABOLIC PANEL - Abnormal; Notable for the following components: Result Value Sodium 133 (*) Chloride 94 (*) BUN 34 (*) Creatinine 1.5 (*) Glucose 430 (*) Estimated GFR 34 (*) All other components within normal limits ACTIVATED PARTIAL THROMBOPLASTIN TIME - Abnormal; Notable for the following components: APTT 22.8 (*) All other components within normal limits COMPLETE BLOOD COUNT WITH DIFFERENTIAL - Abnormal; Notable for the following components: RBC 3.71 (*) % Lymphocytes 11.3 (*) Absolute Neutrophils 7.8 (*) All other components within normal limits CONSULTS ORDERED (AT TIME OF FILING) None TO DO Scheduled Meds: cefTRIAXone (ROCEPHIN) IV Orderable, 2 g, Now COMMENTS: Data Validated/Updated: 11/10/2023 at 6:[address] PM [address]31-2024 Emergency department Note* Pinky Martinez RN - 11/10/2023 6:09 PM EDT Patient provided cup of water, approved by Dr. Rubio. [address]31-2024 Emergency department Note* Pinky Martinez RN - 11/10/2023 5:46 PM EDT IV placement attempted, unsuccessful at this time. TL made aware. [address]31-2024 Physician Emergency department Note* Norberto Rubio MD - 11/10/2023 5:24 PM EDT Triage Chief Complaint: Chief Complaint Patient presents with Cellulitis HPI: Hanna Nelson is a 83 year old female who presents with right leg redness and swelling. This began today. She has history of recurrent cellulitis and son states she required hospitalization for this in the past and subsequent ECF placement. Patient does live independently. She states for the last week she has had some flulike symptoms with low-grade fever and diarrhea although thought it was unrelated. She has been dealing with an ulcer to the plantar aspect of the foot and is diabetic.She denies any pain. She is anticoagulated with Eliquis. REVIEW OF SYSTEMS: Otherwise negative, please see HPI PAST MEDICAL HISTORY: Past Medical History: Diagnosis Date Arthritis Generalized Back pain Charcot's arthropathy 2016 Right Foot Ulcer COVID-19 07/26/2020 Diabetes DX- 1997 Type 2- On Metformin & Glyburide Fall 06/30/2017 Laceration to Scalp Hypercholesteremia On Lipitor Hypothyroid On Levothyroxine Irregular heart beat 07/31/2017 1 episode-ST done results negative Neurogenic claudication due to lumbar spinal stenosis October 2017 Peripheral neuropathy On Gabapentin Peripheral vascular disease (HC CODE) 2010 Unspecified essential hypertension On Amlodipine, Lisinopril & Atenolol FAMILY HISTORY: Family History Problem Relation Age of Onset Diabetes Father Heart Disease Father [place] Hypertension Father Cancer Father Prostate No Known Problems Mother No Known Problems Sister SOCIAL HISTORY: Social History Socioeconomic History Marital status: Spouse name: Not on file Number of children: Not on file Years of education: Not on file Highest education level: Not on file Occupational History Not on file Tobacco Use Smoking status: Former Packs/day: 0.50 Years: 7.00 Additional pack years: 0.00 Total pack years: 3.50 Types: Cigarettes Quit date: 08/12/1964 Years since quittin.2 Smokeless tobacco: Never Vaping Use Vaping Use: Never used Substance and Sexual Activity Alcohol use: Yes Alcohol/week: 1.0 standard drink of alcohol Types: 1 Cans of beer per week Comment: monthly Drug use: No Sexual activity: Not on file Other Topics Concern Not on file Social History Narrative Not on file Social Determinants of Health Financial Resource Strain: Not on file Food Insecurity: Not on file Transportation Needs: Not on file Physical Activity: Not on file Stress: Not on file Social Connections: Not on file Intimate Partner Violence: Not on file Housing Stability: Not on file SURGICAL HISTORY: Past Surgical History: Procedure Laterality Date CARDIAC STRESS TST,COMPLETE 08/01/2017 MVS- Irregular Heart Beat- Results Negative-EF>70% CAUDAL EPIDURAL BLOCK 09/02/2017 ECHO Historical 1987 [facility]- ? Why -Results Good EPIDURAL LUMBAR TRANSFORMINAL Left 03/25/2017 L3-L4 LAMINECTOMY DECOMPRESSION POSTERIOR 3 LEVEL N/A 10/22/2017 LAMINECTOMY DECOMPRESSION POSTERIOR 3 LEVEL performed by Adolfo Edwards MD at [facility] MAIN OR LIG/TRNSXJ FLP TUBE ABDL/VAG APPR UNI/BI Ligation or Transection of Fallopian Tubes, Unilat or Bilat LUMBAR TRANSFORAMINAL EPIDURAL 04/29/2017 L4-L5 Other Surgical History Left 01/24/2015 Left Foot Metatarsal Head Bone Biopsy per Dr Ann Vasquez @ [facility] Other Surgical History Right 10/17/2015 Irigation W/Sharp Excisional Debridement Right Foot. 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 per Dr Loaiza @ [facility] Other Surgical History 2009 Fractured Hip REMOVAL GALLBLADDER ~1970 [facility] WOUND VAC APPLICATION/CHANGE N/A 10/22/2017 WOUND VAC APPLICATION/CHANGE performed by Adolfo Edwards MD at [facility] MAIN OR CURRENT MEDICATIONS: Current Facility-Administered Medications: saline flush, 10 mL, IV Push, PRN, Norberto Rubio MD cefTRIAXone (ROCEPHIN) 2 g in D5W 50 ml IVPB (PREMIX), 2 g, Intravenous, Now, Norberto Rubio MD Current Outpatient Medications: HYDROcodone-acetaminophen (NORCO) 5-325 mg tablet, Take 1 Tab by mouth every 8 hours as needed for Pain, Disp: 21 Tab, Rfl: 0 gabapentin (NEURONTIN) 300 mg capsule, Take 1 Cap by mouth two times a day, Disp: 180 Cap, Rfl: 3 fenofibrate (LOFIBRA) 160 mg tablet, Take 1 Tab by mouth daily, Disp: 90 Tab, Rfl: 3 glimepiride (AMARYL) 4 mg tablet, Take 1 Tab by mouth two times a day, Disp: 180 Tab, Rfl: 3 apixaban (ELIQUIS) 5 mg tablet, Take 1 Tab by mouth two times a day, Disp: 180 Tab, Rfl: 3 metFORMIN XR (GLUCOPHAGE XR) 500 mg SR-tablet 24 Hr, Take 2 Tab by mouth twice a day before meals, Disp: 360 Tab, Rfl: 3 AtorvaSTATin (LIPITOR) 40 mg tablet, Take 1 Tab by mouth daily, Disp: 90 Tab, Rfl: 3 atenoloL (TENORMIN) 50 mg tablet, Take 1 Tab by mouth twice daily at 8am and 5pm, Disp: 180 Tab, Rfl: 3 oxybutynin (DITROPAN XL) 10 mg SR-tablet 24 Hr, Take 1 Tab by mouth daily, Disp: 90 Tab, Rfl: 3 amLODIPine (NORVASC) 5 mg tablet, Take 1 Tab by mouth daily, Disp: 90 Tab, Rfl: 3 lisinopriL (PRINIVIL,ZESTRIL) 20 mg tablet, Take 1 Tab by mouth two times a day, Disp: 180 Tab, Rfl: 3 Blood Sugar Diagnostic Strip, Qd to bid; dispense brand insurance will cover, Disp: 100 Strip, Rfl:11 levothyroxine (SYNTHROID) 112 mcg tablet, Take 1 Tab by mouth daily before breakfast, Disp: 90 Tab,Rfl: 3 HANDICAP PRIVILEGES TAG/STICKER, Please issue a Handicap Privileges Tag/Sticker valid from 01/15/2023to 01/16/2028, Disp: 1 Each, Rfl: 0 lancets 30 gauge Misc, by Miscellaneous route Qd to bid, Disp: 100 Each, Rfl: 3 FOLIC ACID/MULTIVIT-MIN/LUTEIN (CENTRUM SILVER ORAL), Take 1 Tab by mouth daily., Disp: , Rfl: dulaglutide (TRULICITY) 1.5 mg/0.5 mL Pen Injector injection, Inject 0.5 mL subcutaneously every 7 days (Patient not taking: Reported on 10/18/2023), Disp: 2 mL, Rfl: 11 methocarbamoL (ROBAXIN) 750 mg tablet, Take 1 Tab by mouth three times a day as needed (Patient nottaking: Reported on 11/10/2023), Disp: 60 Tab, Rfl: 5 ALLERGIES: Tape 1"x5yd [adhesive tape] PHYSICAL EXAM: VITAL SIGNS: Per chart CONSTITUTIONAL: Alert, oriented, in no acute distress HEENT: Atraumatic, normocephalic, PERRL, EOMI, oral mucosa pink and moist, airway patent, no edema or erythema NECK: Supple, non-tender, no masses, trachea midline, no Bruits or JVD CARDIOVASCULAR: Normal rate and rhythm, No murmurs, No rubs, No gallops PULMONARY/CHEST: Clear to auscultation. Symmetrical breath sounds. Non-tender. ABDOMINAL: Non-distended, normal bowel sounds, soft, non-tender. BACK: No CVT, no midline tenderness, no external evidence of trauma. NEUROLOGIC: Non-focal EXTREMITIES: No clubbing, cyanosis, or edema. Good pulses throughout. Right lower extremity demonstrates warmth and erythema from the foot extending up to the level of the knee. There is a healed wound to the plantar aspect of the foot medially with some palpable fluctuance. SKIN: Warm, Dry, No erythema, No rash ED COURSE / MEDICAL DECISION MAKING: This is a 83 year old female who presents fairly extensive cellulitis to the right leg. Has low-grade tachycardia with heart rate of 100. Concern of early sepsis.Will obtain laboratory studies and x- ray of the foot. She will be given antibiotics. Laboratory studies reviewed. She will be hospitalized for further care. Independent Interpretation of Studies: None External Records Reviewed: None Discussion of Management: Hospitalist Escalation/De-Escalation of Care: Admitted Billable Critical Care Time: None or <30 minutes FINAL IMPRESSION: 1 --right lower extremity cellulitis [facility] [id number] Emergency department Note* Arelis Rodriguez RN - 11/10/2023 4:38 PM EDT Pt son is in from out of town. He states pt has a history of cellulitis in her R leg. He states shehas been less sharp and less steady and didn't want to leave before she was checked out to make sure she is ok. Pt A&O x4 and ambulatory in triage. [facility] [id number] Hospital Discharge instructions* Discharge Instructions * Trini Boyce RN - 10/30/2023 3:53 PM EDT You have been treated at [facility] for reasons of wound healing. WOUND CARE: With Dressing Changes - wash your hands prior to starting and after you finish and dispose of old materials properly. The following wound care procedure has been ordered for you in treating your wound: Wound location: Right plantar foot Cleanse with: saline/wound cleanser Apply to wound: collagen powder, silver alginate Secure with: bordered foam Change Dressing: M-W-F Wear diabetic shoe insert with additional C-felt padding whenever walking. Return: 2 weeks SPECIAL INSTRUCTIONS: Nutrition: Increase dietary protein intake as instructed. Foot Wear: Follow specialty footwear instructions as advised. Off loading/Pressure Reduce: PRECAUTIONS: If any of the following occur, contact [phone] immediately or go to your nearest emergency room!! Fever over 101 degrees Increase in drainage Redness around wound and/or streaking Odor or drainage Increase in pain Increased swelling Bleeding Need for compression bandage changes (slippage, breakthrough drainage) IF YOU ARE A DIABETIC: Gently dry well including between your toes Inspect feet/legs DAILY for skin problems, blisters, etc. Wear socks/stockings at all times Tell us if you need assistance putting on your socks or shoes Elevate your feet often, if swelling reaches your legs Wear compression garments as instructed Call us if you are sick, have a cold or flu HOME MEDICATIONS AT DISCHARGE Warning, if you take acetaminophen products: No more than 3Gms or 3000mg of acetaminophen (Tylenol)should be taken daily (eg. 6 extra-strength Tylenol). Be aware that multiple medications contain tylenol products(eg.vicodin, lortab, percocet, darvocet, and nonaspirin pain relievers). FUTURE VISIT INFORMATION: Call us if you are unable to come, leave a message if unable to speak to a staff member Every effort will be made to keep your scheduled appointment, occasionally patients admitted to thespital need priority care. In that case we will reschedule your treatments as soon as possible. Your signature verifies that we have reviewed this document and that you understand the importance of the information above and acknowledge receipt of same. Failure to comply with these reminders mayresult in delay of your care and/or termination of treatment. If you have any questions, please call us at [phone] documented in this encounterMemorial Health [id number] History of Present illness Narrative* Estiven Mcfadden DPM - 10/17/2023 1:30 PM EST [facility] 10/17/2023 Patient Name: Hanna Nelson : 1940 AGE: [age] year old GENDER: Female Chief Complaint/Reason for Visit Hanna Nelson is a 81 year old female who presents today for wound care of chronic wound on the bottom of the right foot. 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 -No signs of infection. Monitor off antibiotics. -Continue with diabetic shoe with offloading insert at all times while walking. -Continue with local wound care -Any signs of infection before the next visit go to the emergency room -Follow-up 2 weeks Patient's Problem List Patient Active Problem List Diagnosis Essential hypertension Type 2 diabetes mellitus (HC CODE) Arthritis Hypothyroidism Palpitation Hyponatremia Spinal stenosis of lumbar region with neurogenic claudication Paroxysmal atrial fibrillation (HC CODE) Postoperative ileus (HC CODE) Paraparesis (HC CODE) Ataxia Cellulitis Peripheral vascular disease (HC CODE) Education regarding disease process, wound care, pressure relief and elevation discussed with patient today. Time spent with patient and patient care related issues in addition to coordination of patient's care with other physicians/agencies: Discharge Instructions were given to patient, significant other, caregiver, or DPO[facility]. Follow-up Wound Right Leg Medial Blister (bullae) (Active) Wound Right Foot Plantar (Active) Dressing Status / Change Dry & Intact 10/17/23 1300 Wound Bed Appearance Red 10/17/23 1300 Drainage Amount Moderate 10/03/23 1300 Drainage Appearance Red brown 10/03/23 1300 Odor None 10/17/23 1300 Wound cleanser Normal saline 10/17/23 1300 Specific Procedures Other (Comment) 07/25/23 1331 Advanced Wound Intervention Photos 09/19/23 1300 Wound length (cm) 0.2 cm 10/17/23 1341 Wound width (cm) 0.4 cm 10/17/23 1341 Wound depth (cm) 0.1 cm 10/17/23 1341 Wound Surface Area (length x width) 0.08 10/17/23 1341 Undermining / Tunneling No 03/07/23 1300 Periwound (surrounding) tissue Macerated;Calloused 10/17/23 1300 Primary Dressing Collagens;Antimicrobial;Alginate 10/17/23 1341 Secondary Dressing Foam Dressing-Silicone Boarder 10/17/23 1341 Objective Vitals Signs: Visit Vitals BP 154/72 Pulse 76 Temp 96.9 F (36.1 C) Resp 16 OB Status Postmenopausal Smoking Status Former General Exam GENERAL: The patient is in no acute distress. RESP: Nonlabored breathing. No distress. Normal respirations. ABD: benign EXTREMITIES: No signs of infection to the right lower extremity Medications and Allergies No outpatient medications have been marked as taking for the 10/17/23 encounter (Hospital Encounter) with [facility]. Allergies Allergen Reactions Tape 1"X5yd [Adhesive Tape] Rash Redness. Avoids. Prefers paper tape Labs: WBC COUNT Date Value Ref Range Status 09/12/2023 8.1 3.5 - 10.9 K/uL Final HEMOGLOBIN Date Value Ref Range Status 09/12/2023 12.2 11.2 - 15.7 G/DL Final HEMATOCRIT Date Value Ref Range Status 09/12/2023 36.8 34.0 - 49.0 % Final PLATELET COUNT Date Value Ref Range Status 09/12/2023 268 140 - 400 K/uL Final SODIUM Date Value Ref Range Status 09/12/2023 138 135 - 148 MEQ/L Final 10/21/2020 135 135 - 148 MEQ/L POTASSIUM Date Value Ref Range Status 09/12/2023 4.7 3.4 - 5.3 MEQ/L Final CHLORIDE Date Value Ref Range Status 09/12/2023 101 96 - 110 MEQ/L Final CARBON DIOXIDE Date Value Ref Range Status 09/12/2023 24 19 - 32 MEQ/L Final GLUCOSE Date Value Ref Range Status 09/12/2023 186 70 - 99 MG/DL Final Comment: (NOTE) The [place] [employer] recommends the following guidelines: MG/DL <100 = NORMAL GLUCOSE 100-125= IMPAIRED FASTING GLUCOSE >=126 = PROVISIONAL DIAGNOSIS OF DIABETES ADA Workgroup Report, Diabetic Care, volume 40August 2016 CREATININE Date Value Ref Range Status 09/12/2023 1.1 0.5 - 1.2 MG/DL Final BUN Date Value Ref Range Status 09/12/2023 32 3 - 29 MG/DL Final CALCIUM Date Value Ref Range Status 09/12/2023 10.0 8.5 - 10.5 MG/DL Final ALBUMIN, SERUM Date Value Ref Range Status 10/16/2020 2.9 3.5 - 5.2 GM/DL PROTHROMBIN TIME Date Value Ref Range Status 05/15/2019 13.0 11.7 - 13.9 SECONDS PARTIAL THROMBOPLASTIN TIME Date Value Ref Range Status 05/15/2019 23.3 24.5 - 35.2 SECONDS INR Date Value Ref Range Status 05/15/2019 1.0 0.9 - 1.1 Comment: MODERATE-INTENSITY WARFARIN THERAPY: 2.0-3.0 HIGHER-INTENSITY WARFARIN THERAPY: 3.0-4.0 HEMOGLOBIN A1C Date Value Ref Range Status 09/12/2023 9.0 4.0 - 6.0 % Final Comment: (NOTE) The [place] [employer] recommends the following Guidelines: 5.7-6.4% Indicates increased risk for diabetes (Prediabetes). >6.5% Diagnostic of diabetes. In the absence of unequivocal hyperglycemia, results should be confirmed by repeat test. <7% Glycemic recommendation for non adults with diabetes. [place] [employer], Standards of Medical Care in Diabetes, Volume 40; 2017 Debridement Procedure Note Site of debridement: Right foot Time out performed prior to treatment. Indication: Removal of nonviable tissue, fibrin, and exudates/slough Anesthesia: topical lidocaine per orders when needed Procedure: Excisional debridement was done using a scalpel and/or curette to remove the nonviable tissue and/or slough/exudates and fibrin after patient placed in a comfortable position. Nonexcisional debridement also done using 4x4 gauze and/or irrigation and/or cotton tip applicator. Level of Debridement: Subcutaneous Total area debrided (sqcm): 0.08 Response to procedure: satisfactory Complications: none Post debridement measurements done by RN and reviewed by myself Inocencio Mcfadden DPM [facility] documented in this encounterMemorial Health [id number] Miscellaneous Notes* Care Plan - Trini Boyce RN - 10/17/2023 1:30 PM EST Progressing. documented in this encounterMemorial Health [id number] Note* Care Plan - Trini Boyce RN - 10/17/2023 1:30 PM EST Progressing. [facility] [id number] Hospital Discharge instructions* Discharge Instructions * Trini Boyce RN - 10/17/2023 9:22 AM EST You have been treated at [facility] for reasons of wound healing. WOUND CARE: With Dressing Changes - wash your hands prior to starting and after you finish and dispose of old materials properly. The following wound care procedure has been ordered for you in treating your wound: Wound location: Right plantar foot Cleanse with: saline/wound cleanser Apply to wound: collagen powder, silver alginate Secure with: bordered foam Change Dressing: M-W-F Wear diabetic shoe insert with additional C-felt padding whenever walking. Return: 2 weeks SPECIAL INSTRUCTIONS: Nutrition: Increase dietary protein intake as instructed. Foot Wear: Follow specialty footwear instructions as advised. Off loading/Pressure Reduce: PRECAUTIONS: If any of the following occur, contact [phone] immediately or go to your nearest emergency room!! Fever over 101 degrees Increase in drainage Redness around wound and/or streaking Odor or drainage Increase in pain Increased swelling Bleeding Need for compression bandage changes (slippage, breakthrough drainage) IF YOU ARE A DIABETIC: Gently dry well including between your toes Inspect feet/legs DAILY for skin problems, blisters, etc. Wear socks/stockings at all times Tell us if you need assistance putting on your socks or shoes Elevate your feet often, if swelling reaches your legs Wear compression garments as instructed Call us if you are sick, have a cold or flu HOME MEDICATIONS AT DISCHARGE Warning, if you take acetaminophen products: No more than 3Gms or 3000mg of acetaminophen (Tylenol)should be taken daily (eg. 6 extra-strength Tylenol). Be aware that multiple medications contain tylenol products(eg.vicodin, lortab, percocet, darvocet, and nonaspirin pain relievers). FUTURE VISIT INFORMATION: Call us if you are unable to come, leave a message if unable to speak to a staff member Every effort will be made to keep your scheduled appointment, [facility] In that case we will reschedule your treatments as soon as possible. Your signature verifies that we have reviewed this document and that you understand the importance of the information above and acknowledge receipt of same. Failure to comply with these reminders mayresult in delay of your care and/or termination of treatment. If you have any questions, please call us at [phone] documented in this encounterMemorial Health [id number] NotePhysical Therapy Evaluation (only) Physical Therapy Visit [facility] [address] [place], [place] PATIENT INFORMATION Patient Name: Hanna Nelson : 1940 Evaluation Date: 10/11/23 Service Date: 10/11/2023 Diagnosis: Spinal stenosis of lumbar region with neurogenic claudication [M48.062];Chronic pain of right knee [M25.561, G89.29];Imbalance [R26.89] Precautions: standard ORDER Referring Provider: Lisy Pace MD Order Date: 10/06/23 Order Details: eval and treat Insurance: Medicare Insurance Authorization: - Medicare Certification Dates: 10/11/23 to 01/03/24 Subjective: Pt is here for knee pain and gait/balance training. Pt states no recent falls. Presents with cane and states she does not use cane at home, just out in the community. States she has R knee pain on and off, increased with activity. Denies back pain. Denies numbness/tingling, however states she does have neuropathy. Does not use stairs at home. States she can do anything she wants to do, just has to do things slowly. Pain Scale Rating: Current: 4/10 Worst: 7/10 Best: 0/10 Prior level of function: no difficulties with ADLs, no AD Current level of function: 10/10: uses cane in the community, difficulty with sit to stand without use of hands Patient's Goal: Pt is seeking PT to improve her gait, gain strength, and improve pain Past Medical History: has a past medical history of Arthritis, Back pain, Charcot's arthropathy (2015), COVID-19 (07/26/2020), Diabetes (DX- 1996), Fall (06/30/2017), Hypercholesteremia, Hypothyroid, Irregular heart beat (07/31/2017), Neurogenic claudication due to lumbar spinal stenosis (October 2017), Peripheral neuropathy, Peripheral vascular disease (HC CODE) (2010), and Unspecified essential hypertension. Past Surgical History: has a past surgical history that includes removal gallbladder ( transforaminal epidural (04/29/2017); caudal epidural block (09/02/2017); other surgical history (Left, 01/24/2015); other surgical history (Right, 10/17/2015); other surgical history (Left, 12/19/2010); echo historical (1987); cardiac stress tst,complete (08/01/2017); other surgical history (2009); lig/trnsxj flp tube abdl/vag appr uni/bi; laminectomy decompression posterior 3 level (N/A, 10/22/2017); and wound vac application/change (N/A, 10/22/2017). Comorbidities: Arthritis, Cardiac - MO, CABG, CHF, Diabetes, and Hypertension Personal Factors: Age Safety: Patient reports that he/she feels safe in home environment: yes Reviewed attendance policy and satisfaction promise: yes Functional Tool Score: ABCS: 38.12% Level of Impairment (clinical judgement): moderate Objective Examination: Neuro Screen: dermatomes and myotomes WNL ROM: ROM: Active L Active R Knee 0-4-112 0-10-110 Hip flexion WFL WFL Hip extension WFL WFL Ankle PF WFL WFL Ankle DF WFL WFL Strength L R Knee extension 4 4 Hip flexion 4 4 Hip extension 4 4 Ankle PF 4 4 Ankle DF 4 4 Gait: lack of TKE on R, excessive pronation L Transfers: unable to perform sit to stand without use of hands Functional Tests TU.55 sec 30 sec bbt-dl-[id number]: 3 reps Treatment: Evaluation; Skilled Care per Treatment Table below; patient education as detailed below. Objective: Skilled care provided per Treatment Table below. Home Ex 10/11/2023: Patient educated on the larsen components of strength and balance and how we will focus on strength, flexibility, and gait mechanics to improve fall risk. Patient educated on the weaknesses and dysfunction seen and the overall expected progress seen. Patient educated on overall POC and purpose of goals being set. Patient provided time to ask any questions and answers were provided if possible.Patient provided and instructed in HEP; patient demonstrated and reported understanding. Date: 10/11/23 Name: AB Visit 1 2 3 4 5 6 7 8 Pain Rating 11/19 Progress Report SAQs 2 lbs 3 x 15 R LAQs 5 lbs 3 x 14 R Shuttle press 3 bands 2 x 10 education See above manual Knee extension mobilization grade 3-4 X=completed NM=not measured --- or (blank) =not performed DC=discontinued * = HEP Assessment/Response to Treatment: Presents with knee pain and gait disorder. Functional limitations include prolonged standing, prolonged walking, and transfers. Pt has decreased R knee ROM especially in extension, decreased gross LE strength, and decreased balance. Pt responded well to manual treatment and exercise, with quad fatigue post session. Advised she continue to use cane due to decreased TUG score and only able to complete 3 sit to stands with use of her hands to assist. Pt would benefit from PT to address deficits listed so she improve her function and decrease fall risk. Initial Goal Status By Primary Functional Limitation Unable to sit to stand without use of hands Pt able to si (more content not included)...[facility]02-22-2024 Hospital Discharge instructions* Discharge Instructions* Trini Boyce RN - 10/03/2023 1:50 PM EST You have been treated at [facility] for reasons of wound healing. WOUND CARE: With Dressing Changes - wash your hands prior to starting and after you finish and dispose of old materials properly. The following wound care procedure has been ordered for you in treating your wound: Wound location: Right plantar foot Cleanse with: saline/wound cleanser Apply to wound: collagen powder, silver alginate Secure with: bordered foam Change Dressing: M-W-F Wear diabetic shoe insert with additional C-felt padding whenever walking. Return: 2 weeks SPECIAL INSTRUCTIONS: Nutrition: Increase dietary protein intake as instructed. Foot Wear: Follow specialty footwear instructions as advised. Off loading/Pressure Reduce: PRECAUTIONS: If any of the following occur, contact [phone] immediately or go to your nearest emergency room!! Fever over 101 degrees Increase in drainage Redness around wound and/or streaking Odor or drainage Increase in pain Increased swelling Bleeding Need for compression bandage changes (slippage, breakthrough drainage) IF YOU ARE A DIABETIC: Gently dry well including between your toes Inspect feet/legs DAILY for skin problems, blisters, etc. Wear socks/stockings at all times Tell us if you need assistance putting on your socks or shoes Elevate your feet often, if swelling reaches your legs Wear compression garments as instructed Call us if you are sick, have a cold or flu HOME MEDICATIONS AT DISCHARGE Warning, if you take acetaminophen products: No more than 3Gms or 3000mg of acetaminophen (Tylenol)should be taken daily (eg. 6 extra-strength Tylenol). Be aware that multiple medications contain tylenol products(eg.vicodin, lortab, percocet, darvocet, and nonaspirin pain relievers). FUTURE VISIT INFORMATION: Call us if you are unable to come, leave a message if unable to speak to a staff member Every effort will be made to keep your scheduled appointment, occasionally patients admitted to thespital need priority care. In that case we will reschedule your treatments as soon as possible. Your signature verifies that we have reviewed this document and that you understand the importance of the information above and acknowledge receipt of same. Failure to comply with these reminders mayresult in delay of your care and/or termination of treatment. If you have any questions, please call us at [phone] documented in this encounterMemorial Health [id number] History of Present illness Narrative* Estiven Mcfadden DPM - 10/03/2023 1:30 PM EST [facility] 10/03/2023 Patient Name: Hanna Nelson : 1940 AGE: [age] year old GENDER: Female Chief Complaint/Reason for Visit Hanna Nelson is a 81 year old female who presents today for wound care of chronic wound on the bottom of the right foot. No changes from previous. Getting diabetic shoes next week Assessment/Dermatologic Exam/Plan Assessment -Right lower extremity ulceration down to subcutaneous tissue (Daniels grade 2) -Charcot foot deformity right foot -Type 2 diabetes mellitus with peripheral neuropathy -Abrasion right foot Plan -Patient was seen, evaluated, and treated today. -No signs of infection. Monitor off antibiotics. -Continue with diabetic shoe with offloading insert at all times while walking. -Getting diabetic shoes next week -Continue with local wound care -Any signs of infection before the next visit go to the emergency room -Follow-up 2 weeks Patient's Problem List Patient Active Problem List Diagnosis Essential hypertension Type 2 diabetes mellitus (HC CODE) Arthritis Hypothyroidism Palpitation Hyponatremia Spinal stenosis of lumbar region with neurogenic claudication Paroxysmal atrial fibrillation (HC CODE) Postoperative ileus (HC CODE) Paraparesis (HC CODE) Ataxia Cellulitis Peripheral vascular disease (HC CODE) Education regarding disease process, wound care, pressure relief and elevation discussed with patient today. Time spent with patient and patient care related issues in addition to coordination of patient's care with other physicians/agencies: Discharge Instructions were given to patient, significant other, caregiver, or DPOHC. Follow-up Wound Right Leg Medial Blister (bullae) (Active) Wound Right Foot Plantar (Active) Dressing Status / Change Moist with drainage 10/03/23 1300 Wound Bed Appearance Red 10/03/23 1300 Drainage Amount Moderate 10/03/23 1300 Drainage Appearance Red brown 10/03/23 1300 Odor None 10/03/23 1300 Wound cleanser Normal saline 10/03/23 1300 Specific Procedures Other (Comment) 07/25/23 1331 Advanced Wound Intervention Photos 09/19/23 1300 Wound length (cm) 0.2 cm 10/03/23 1355 Wound width (cm) 0.7 cm 10/03/23 1355 Wound depth (cm) 0.15 cm 10/03/23 1355 Wound Surface Area (length x width) 0.14 10/03/23 1355 Undermining / Tunneling No 03/07/23 1300 Periwound (surrounding) tissue Macerated;Calloused 10/03/23 1300 Primary Dressing Collagens;Alginate;Antimicrobial 10/03/23 1355 Secondary Dressing Foam Dressing-Silicone Boarder 10/03/23 1355 Objective Vitals Signs: Visit Vitals BP 124/61 Pulse 100 Temp 95.9 F (35.5 C) Resp 16 OB Status Postmenopausal Smoking Status Former General Exam GENERAL: The patient is in no acute distress. RESP: Nonlabored breathing. No distress. Normal respirations. ABD: benign EXTREMITIES: No signs of infection to the right lower extremity Medications and Allergies No outpatient medications have been marked as taking for the 10/03/23 encounter (Hospital Encounter)with [facility]. Allergies Allergen Reactions Tape 1"X5yd [Adhesive Tape] Rash Redness. Avoids. Prefers paper tape Labs: WBC COUNT Date Value Ref Range Status 09/12/2023 8.1 3.5 - 10.9 K/uL Final HEMOGLOBIN Date Value Ref Range Status 09/12/2023 12.2 11.2 - 15.7 G/DL Final HEMATOCRIT Date Value Ref Range Status 09/12/2023 36.8 34.0 - 49.0 % Final PLATELET COUNT Date Value Ref Range Status 09/12/2023 268 140 - 400 K/uL Final SODIUM Date Value Ref Range Status 09/12/2023 138 135 - 148 MEQ/L Final 10/21/2020 135 135 - 148 MEQ/L POTASSIUM Date Value Ref Range Status 09/12/2023 4.7 3.4 - 5.3 MEQ/L Final CHLORIDE Date Value Ref Range Status 09/12/2023 101 96 - 110 MEQ/L Final CARBON DIOXIDE Date Value Ref Range Status 09/12/2023 24 19 - 32 MEQ/L Final GLUCOSE Date Value Ref Range Status 09/12/2023 186 70 - 99 MG/DL Final Comment: (NOTE) The [place] [employer] recommends the following guidelines: MG/DL <100 = NORMAL GLUCOSE 100-125= IMPAIRED FASTING GLUCOSE >=126 = PROVISIONAL DIAGNOSIS OF DIABETES ADA Workgroup Report, Diabetic Care, volume 40August 2016 CREATININE Date Value Ref Range Status 09/12/2023 1.1 0.5 - 1.2 MG/DL Final BUN Date Value Ref Range Status 09/12/2023 32 3 - 29 MG/DL Final CALCIUM Date Value Ref Range Status 09/12/2023 10.0 8.5 - 10.5 MG/DL Final ALBUMIN, SERUM Date Value Ref Range Status 10/16/2020 2.9 3.5 - 5.2 GM/DL PROTHROMBIN TIME Date Value Ref Range Status 05/15/2019 13.0 11.7 - 13.9 SECONDS PARTIAL THROMBOPLASTIN TIME Date Value Ref Range Status 05/15/2019 23.3 24.5 - 35.2 SECONDS INR Date Value Ref Range Status 05/15/2019 1.0 0.9 - 1.1 Comment: MODERATE-INTENSITY WARFARIN THERAPY: 2.0-3.0 HIGHER-INTENSITY WARFARIN THERAPY: 3.0-4.0 HEMOGLOBIN A1C Date Value Ref Range Status 09/12/2023 9.0 4.0 - 6.0 % Final Comment: (NOTE) The [place] [employer] recommends the following Guidelines: 5.7-6.4% Indicates increased risk for diabetes (Prediabetes). >6.5% Diagnostic of diabetes. In the absence of unequivocal hyperglycemia, results should be confirmed by repeat test. <7% Glycemic recommendation for non adults with diabetes. [place] [employer], Standards of Medical Care in Diabetes, Volume 40; 2017 Debridement Procedure Note Site of debridement: Right foot Time out performed prior to treatment. Indication: Removal of nonviable tissue, fibrin, and exudates/slough Anesthesia: topical lidocaine per orders when needed Procedure: Excisional debridement was done using a scalpel and/or curette to remove the nonviable tissue and/or slough/exudates and fibrin after patient placed in a comfortable position. Nonexcisional debridement also done using 4x4 gauze and/or irrigation and/or cotton tip applicator. Level of Debridement: Subcutaneous Total area debrided (sqcm): 0.14 Response to procedure: satisfactory Complications: none Post debridement measurements done by RN and reviewed by myself Inocencio Mcfadden DPM [facility] documented in this encounterMemorial Health [id number] Miscellaneous Notes* Care Plan - Trini Boyce RN - 10/03/2023 1:30 PM EST Progressing. Pt states she did not receive supplies from [employer]. Phoned [employer] who verified supplies had been shipped. Pt will look again when she gets home. documented in this encounterMemorial Health [id number] Note* Care Plan - Trini Boyce RN - 10/03/2023 1:30 PM EST Progressing. Pt states she did not receive supplies from [employer]. [employer]oned [employer] who verified supplies had been shipped. Pt will look again when she gets home. [facility] Health [id number] NoteProgressing. Pt states she did not receive supplies from [employer]. [employer]oned [employer] who verified supplies had been shipped. Pt will look again when she gets home.[facility]02-08-2024 History of Present illness Narrative* Estiven Mcfadden DPM - 09/19/2023 1:30 PM EST [facility] 09/19/2023 Patient Name: Hanna Nelson : 1940 AGE: [age] year old GENDER: Female Chief Complaint/Reason for Visit Hanna Nelson is a 81 year old female who presents today for wound care of chronic wound on the bottom of the right foot. No changes from previous. Still waiting to hear when diabetic shoes will be ready. Assessment/Dermatologic Exam/Plan Assessment -Right lower extremity ulceration down to subcutaneous tissue (Daniels grade 2) -Charcot foot deformity right foot -Type 2 diabetes mellitus with peripheral neuropathy -Abrasion right foot Plan -Patient was seen, evaluated, and treated today. -No signs of infection. Monitor off antibiotics. -Continue with diabetic shoe with offloading insert at all times while walking. -Patient has been fit for diabetic shoes. Just waiting to see when they will come in for her. -Continue with local wound care -Any signs of infection before the next visit go to the emergency room -Follow-up 2 weeks Patient's Problem List Patient Active Problem List Diagnosis Essential hypertension Type 2 diabetes mellitus (HC CODE) Arthritis Hypothyroidism Palpitation Hyponatremia Spinal stenosis of lumbar region with neurogenic claudication Paroxysmal atrial fibrillation (HC CODE) Postoperative ileus (HC CODE) Paraparesis (HC CODE) Ataxia Cellulitis Peripheral vascular disease (HC CODE) Education regarding disease process, wound care, pressure relief and elevation discussed with patient today. Time spent with patient and patient care related issues in addition to coordination of patient's care with other physicians/agencies: Discharge Instructions were given to patient, significant other, caregiver, or DPOHC. Follow-up Wound Right Leg Medial Blister (bullae) (Active) Wound Right Foot Plantar (Active) Dressing Status / Change Moist with drainage 09/19/23 1300 Wound Bed Appearance Red 09/19/23 1300 Drainage Amount Moderate 09/19/23 1300 Drainage Appearance Red brown 09/19/23 1300 Odor None 09/19/23 1300 Wound cleanser Normal saline 09/19/23 1300 Specific Procedures Other (Comment) 07/25/23 1331 Advanced Wound Intervention Photos 09/19/23 1300 Wound length (cm) 0.3 cm 09/19/23 1348 Wound width (cm) 0.7 cm 09/19/23 1348 Wound depth (cm) 0.15 cm 09/19/23 1348 Wound Surface Area (length x width) 0.21 09/19/23 1348 Undermining / Tunneling No 03/07/23 1300 Periwound (surrounding) tissue Macerated;Calloused 09/19/23 1300 Primary Dressing Collagens;Alginate;Antimicrobial 09/19/23 1348 Secondary Dressing Foam Dressing-Silicone Boarder 09/19/23 1348 Objective Vitals Signs: Visit Vitals BP 162/74 Pulse 82 Temp 96 F (35.6 C) Resp 16 OB Status Postmenopausal Smoking Status Former General Exam GENERAL: The patient is in no acute distress. RESP: Nonlabored breathing. No distress. Normal respirations. ABD: benign EXTREMITIES: No signs of infection to the right lower extremity Medications and Allergies No outpatient medications have been marked as taking for the 09/19/23 encounter (Hospital Encounter) with [facility]. Allergies Allergen Reactions Tape 1"X5yd [Adhesive Tape] Rash Redness. Avoids. Prefers paper tape Labs: WBC COUNT Date Value Ref Range Status 09/12/2023 8.1 3.5 - 10.9 K/uL Final HEMOGLOBIN Date Value Ref Range Status 09/12/2023 12.2 11.2 - 15.7 G/DL Final HEMATOCRIT Date Value Ref Range Status 09/12/2023 36.8 34.0 - 49.0 % Final PLATELET COUNT Date Value Ref Range Status 09/12/2023 268 140 - 400 K/uL Final SODIUM Date Value Ref Range Status 09/12/2023 138 135 - 148 MEQ/L Final 10/21/2020 135 135 - 148 MEQ/L POTASSIUM Date Value Ref Range Status 09/12/2023 4.7 3.4 - 5.3 MEQ/L Final CHLORIDE Date Value Ref Range Status 09/12/2023 101 96 - 110 MEQ/L Final CARBON DIOXIDE Date Value Ref Range Status 09/12/2023 24 19 - 32 MEQ/L Final GLUCOSE Date Value Ref Range Status 09/12/2023 186 70 - 99 MG/DL Final Comment: (NOTE) The [place] [employer] recommends the following guidelines: MG/DL <100 = NORMAL GLUCOSE 100-125= IMPAIRED FASTING GLUCOSE >=126 = PROVISIONAL DIAGNOSIS OF DIABETES ADA Workgroup Report, Diabetic Care, volume 40August 2016 CREATININE Date Value Ref Range Status 09/12/2023 1.1 0.5 - 1.2 MG/DL Final BUN Date Value Ref Range Status 09/12/2023 32 3 - 29 MG/DL Final CALCIUM Date Value Ref Range Status 09/12/2023 10.0 8.5 - 10.5 MG/DL Final ALBUMIN, SERUM Date Value Ref Range Status 10/16/2020 2.9 3.5 - 5.2 GM/DL PROTHROMBIN TIME Date Value Ref Range Status 05/15/2019 13.0 11.7 - 13.9 SECONDS PARTIAL THROMBOPLASTIN TIME Date Value Ref Range Status 05/15/2019 23.3 24.5 - 35.2 SECONDS INR Date Value Ref Range Status 05/15/2019 1.0 0.9 - 1.1 Comment: MODERATE-INTENSITY WARFARIN THERAPY: 2.0-3.0 HIGHER-INTENSITY WARFARIN THERAPY: 3.0-4.0 HEMOGLOBIN A1C Date Value Ref Range Status 09/12/2023 9.0 4.0 - 6.0 % Final Comment: (NOTE) The [place] [employer] recommends the following Guidelines: 5.7-6.4% Indicates increased risk for diabetes (Prediabetes). >6.5% Diagnostic of diabetes. In the absence of unequivocal hyperglycemia, results should be confirmed by repeat test. <7% Glycemic recommendation for non adults with diabetes. [place] [employer], Standards of Medical Care in Diabetes, Volume 40; 2017 Debridement Procedure Note Site of debridement: Right foot Time out performed prior to treatment. Indication: Removal of nonviable tissue, fibrin, and exudates/slough Anesthesia: topical lidocaine per orders when needed Procedure: Excisional debridement was done using a scalpel and/or curette to remove the nonviable tissue and/or slough/exudates and fibrin after patient placed in a comfortable position. Nonexcisional debridement also done using 4x4 gauze and/or irrigation and/or cotton tip applicator. Level of Debridement: Subcutaneous Total area debrided (sqcm): 0.21 Response to procedure: satisfactory Complications: none Post debridement measurements done by RN and reviewed by myself Inocencio Mcfadden DPM [facility] documented in this encounterMemorial Health [id number] Miscellaneous Notes* Care Plan - Trini Boyce RN - 09/19/2023 1:30 PM EST Progressing. Supplies ordered through [employer]. documented in this encounterMemorial Health [id number] Note* Care Plan - Trini Boyce RN - 09/19/2023 1:30 PM EST Progressing. Supplies ordered through [employer]. [facility] [id number] NoteProgressing. Supplies ordered through [employer].[facility]02-08-2024 Hospital Discharge instructions* Discharge Instructions* Trini Boyce RN - 09/19/2023 12:43 PM EST You have been treated at [facility] for reasons of wound healing. WOUND CARE: With Dressing Changes - wash your hands prior to starting and after you finish and dispose of old materials properly. The following wound care procedure has been ordered for you in treating your wound: Wound location: Right plantar foot Cleanse with: saline/wound cleanser Apply to wound: collagen powder, silver alginate Secure with: bordered foam Change Dressing: M-W-F Wear diabetic shoe insert with additional C-felt padding whenever walking. Return: 2 weeks SPECIAL INSTRUCTIONS: Nutrition: Increase dietary protein intake as instructed. Foot Wear: Follow specialty footwear instructions as advised. Off loading/Pressure Reduce: PRECAUTIONS: If any of the following occur, contact [phone] immediately or go to your nearest emergency room!! Fever over 101 degrees Increase in drainage Redness around wound and/or streaking Odor or drainage Increase in pain Increased swelling Bleeding Need for compression bandage changes (slippage, breakthrough drainage) IF YOU ARE A DIABETIC: Gently dry well including between your toes Inspect feet/legs DAILY for skin problems, blisters, etc. Wear socks/stockings at all times Tell us if you need assistance putting on your socks or shoes Elevate your feet often, if swelling reaches your legs Wear compression garments as instructed Call us if you are sick, have a cold or flu HOME MEDICATIONS AT DISCHARGE Warning, if you take acetaminophen products: No more than 3Gms or 3000mg of acetaminophen (Tylenol)should be taken daily (eg. 6 extra-strength Tylenol). Be aware that multiple medications contain tylenol products(eg.vicodin, lortab, percocet, darvocet, and nonaspirin pain relievers). FUTURE VISIT INFORMATION: Call us if you are unable to come, leave a message if unable to speak to a staff member Every effort will be made to keep your scheduled appointment, occasionally patients admitted to thest. [facility] In that case we will reschedule your treatments as soon as possible. Your signature verifies that we have reviewed this document and that you understand the importance of the information above and acknowledge receipt of same. Failure to comply with these reminders mayresult in delay of your care and/or termination of treatment. If you have any questions, please call us at [phone] documented in this encounterMemorial Health [id number] History of Present illness Narrative* Estiven Mcfadden DPM - 09/05/2023 1:30 PM EST [facility] 09/05/2023 Patient Name: Hanna Nelson : 1940 AGE: [age] year old GENDER: Female Chief Complaint/Reason for Visit Hanna Nelson is a 81 year old female who presents today for wound care of chronic wound on the bottom of the right foot. No changes from previous. She has been fit for diabetic shoes. Just waiting for an update on when they will be ready to be picked up Assessment/Dermatologic Exam/Plan Assessment -Right lower extremity ulceration down to subcutaneous tissue (Daniels grade 2) -Charcot foot deformity right foot -Type 2 diabetes mellitus with peripheral neuropathy -Abrasion right foot Plan -Patient was seen, evaluated, and treated today. -No signs of infection. Monitor off antibiotics. -Continue with diabetic shoe with offloading insert at all times while walking. -Patient has been fit for diabetic shoes. Just waiting to see when they will come in for her. -Continue with local wound care -Any signs of infection before the next visit go to the emergency room -Follow-up 2 weeks Patient's Problem List Patient Active Problem List Diagnosis Essential hypertension Type 2 diabetes mellitus (HC CODE) Arthritis Hypothyroidism Palpitation Hyponatremia Spinal stenosis of lumbar region with neurogenic claudication Paroxysmal atrial fibrillation (HC CODE) Postoperative ileus (HC CODE) Paraparesis (HC CODE) Ataxia Cellulitis Peripheral vascular disease (HC CODE) Lower extremity ulceration, right, with fat layer exposed (HC CODE) Education regarding disease process, wound care, pressure relief and elevation discussed with patient today. Time spent with patient and patient care related issues in addition to coordination of patient's care with other physicians/agencies: Discharge Instructions were given to patient, significant other, caregiver, or DPOHC. Follow-up Wound Right Leg Medial Blister (bullae) (Active) Wound Right Foot Plantar (Active) Dressing Status / Change Moist with drainage 09/05/23 1300 Wound Bed Appearance Red 09/05/23 1300 Drainage Amount Moderate 09/05/23 1300 Drainage Appearance Red brown 09/05/23 1300 Odor None 09/05/23 1300 Wound cleanser Normal saline 09/05/23 1300 Specific Procedures Other (Comment) 07/25/23 1331 Advanced Wound Intervention Photos 08/22/23 1300 Wound length (cm) 0.3 cm 09/05/23 1343 Wound width (cm) 0.4 cm 09/05/23 1343 Wound depth (cm) 0.15 cm 09/05/23 1343 Wound Surface Area (length x width) 0.12 09/05/23 1343 Undermining / Tunneling No 03/07/23 1300 Periwound (surrounding) tissue Macerated;Calloused 09/05/23 1300 Primary Dressing Collagens;Alginate 09/05/23 1343 Secondary Dressing Foam Dressing-Silicone Boarder 09/05/23 1343 Objective Vitals Signs: Visit Vitals BP 142/66 Pulse 80 Temp 97 F (36.1 C) Resp 16 OB Status Postmenopausal Smoking Status Former General Exam GENERAL: The patient is in no acute distress. RESP: Nonlabored breathing. No distress. Normal respirations. ABD: benign EXTREMITIES: No signs of infection to the right lower extremity Medications and Allergies No outpatient medications have been marked as taking for the 09/05/23 encounter (Hospital Encounter)with [facility]. Allergies Allergen Reactions Tape 1"X5yd [Adhesive Tape] Rash Redness. Avoids. Prefers paper tape Labs: WBC COUNT Date Value Ref Range Status 01/11/2023 7.3 3.5 - 10.9 K/uL Final HEMOGLOBIN Date Value Ref Range Status 01/11/2023 13.9 11.2 - 15.7 G/DL Final HEMATOCRIT Date Value Ref Range Status 01/11/2023 40.3 34.0 - 49.0 % Final PLATELET COUNT Date Value Ref Range Status 01/11/2023 252 140 - 400 K/uL Final SODIUM Date Value Ref Range Status 01/11/2023 141 135 - 148 MEQ/L Final 10/21/2020 135 135 - 148 MEQ/L POTASSIUM Date Value Ref Range Status 01/11/2023 4.7 3.4 - 5.3 MEQ/L Final CHLORIDE Date Value Ref Range Status 01/11/2023 103 96 - 110 MEQ/L Final CARBON DIOXIDE Date Value Ref Range Status 01/11/2023 24 19 - 32 MEQ/L Final GLUCOSE Date Value Ref Range Status 01/11/2023 207 70 - 99 MG/DL Final Comment: (NOTE) The [place] [employer] recommends the following guidelines: MG/DL <100 = NORMAL GLUCOSE 100-125= IMPAIRED FASTING GLUCOSE >=126 = PROVISIONAL DIAGNOSIS OF DIABETES ADA Workgroup Report, Diabetic Care, volume 40August 2016 CREATININE Date Value Ref Range Status 01/11/2023 0.9 0.5 - 1.2 MG/DL Final BUN Date Value Ref Range Status 01/11/2023 28 3 - 29 MG/DL Final CALCIUM Date Value Ref Range Status 01/11/2023 10.3 8.5 - 10.5 MG/DL Final ALBUMIN, SERUM Date Value Ref Range Status 10/16/2020 2.9 3.5 - 5.2 GM/DL PROTHROMBIN TIME Date Value Ref Range Status 05/15/2019 13.0 11.7 - 13.9 SECONDS PARTIAL THROMBOPLASTIN TIME Date Value Ref Range Status 05/15/2019 23.3 24.5 - 35.2 SECONDS INR Date Value Ref Range Status 05/15/2019 1.0 0.9 - 1.1 Comment: MODERATE-INTENSITY WARFARIN THERAPY: 2.0-3.0 HIGHER-INTENSITY WARFARIN THERAPY: 3.0-4.0 HEMOGLOBIN A1C Date Value Ref Range Status 01/11/2023 8.4 4.0 - 6.0 % Final Comment: (NOTE) The [place] [employer] recommends the following Guidelines: 5.7-6.4% Indicates increased risk for diabetes (Prediabetes). >6.5% Diagnostic of diabetes. In the absence of unequivocal hyperglycemia, results should be confirmed by repeat test. <7% Glycemic recommendation for non adults with diabetes. [place] [employer], Standards of Medical Care in Diabetes, Volume 40; 2017 Debridement Procedure Note Site of debridement: Right foot Time out performed prior to treatment. Indication: Removal of nonviable tissue, fibrin, and exudates/slough Anesthesia: topical lidocaine per orders when needed Procedure: Excisional debridement was done using a scalpel and/or curette to remove the nonviable tissue and/or slough/exudates and fibrin after patient placed in a comfortable position. Nonexcisional debridement also done using 4x4 gauze and/or irrigation and/or cotton tip applicator. Level of Debridement: Subcutaneous Total area debrided (sqcm): 0.12 Response to procedure: satisfactory Complications: none Post debridement measurements done by RN and reviewed by myself Inocencio Mcfadden DPM [facility] documented in this encounterMemorial Health [id number] Hospital Discharge instructions* Discharge Instructions* Trini Boyce RN - 09/02/2023 11:11 AM EST You have been treated at [facility] for reasons of wound healing. WOUND CARE: With Dressing Changes - wash your hands prior to starting and after you finish and dispose of old materials properly. The following wound care procedure has been ordered for you in treating your wound: Wound location: Right plantar foot Cleanse with: saline/wound cleanser Apply to wound: collagen powder, silver alginate Secure with: bordered foam Change Dressing: M-W-F Wear diabetic shoe insert with additional C-felt padding whenever walking. Return: 2 weeks SPECIAL INSTRUCTIONS: Nutrition: Increase dietary protein intake as instructed. Foot Wear: Follow specialty footwear instructions as advised. Off loading/Pressure Reduce: PRECAUTIONS: If any of the following occur, contact [phone] immediately or go to your nearest emergency room!! Fever over 101 degrees Increase in drainage Redness around wound and/or streaking Odor or drainage Increase in pain Increased swelling Bleeding Need for compression bandage changes (slippage, breakthrough drainage) IF YOU ARE A DIABETIC: Gently dry well including between your toes Inspect feet/legs DAILY for skin problems, blisters, etc. Wear socks/stockings at all times Tell us if you need assistance putting on your socks or shoes Elevate your feet often, if swelling reaches your legs Wear compression garments as instructed Call us if you are sick, have a cold or flu HOME MEDICATIONS AT DISCHARGE Warning, if you take acetaminophen products: No more than 3Gms or 3000mg of acetaminophen (Tylenol)should be taken daily (eg. 6 extra-strength Tylenol). Be aware that multiple medications contain tylenol products(eg.vicodin, lortab, percocet, darvocet, and nonaspirin pain relievers). FUTURE VISIT INFORMATION: Call us if you are unable to come, leave a message if unable to speak to a staff member Every effort will be made to keep your scheduled appointment, occasionally [facility] In that case we will reschedule your treatments as soon as possible. Your signature verifies that we have reviewed this document and that you understand the importance of the information above and acknowledge receipt of same. Failure to comply with these reminders mayresult in delay of your care and/or termination of treatment. If you have any questions, please call us at [phone] documented in this encounterMemorial Health [id number] History of Present illness Narrative* Estiven Mcfadden DPM - 08/22/2023 1:30 PM EST [facility] 08/22/2023 Patient Name: Hanna Nelson : 1940 AGE: [age] year old GENDER: Female Chief Complaint/Reason for Visit Hanna Nelson is a 81 year old female who presents today for wound care of chronic wound on the bottom of the right foot. No changes from previous. 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 -No signs of infection. Monitor off antibiotics. -Continue with diabetic shoe with offloading insert at all times while walking. 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 -Continue with local wound care -Did discuss that we could do a Charcot planing on the area in the future if the area remains persistent. Discussed that being an outpatient surgery with light anesthesia. -Any signs of infection before the next visit go to the emergency room -Follow-up 2 weeks Patient's Problem List Patient Active Problem List Diagnosis Essential hypertension Type 2 diabetes mellitus (HC CODE) Arthritis Hypothyroidism Palpitation Hyponatremia Spinal stenosis of lumbar region with neurogenic claudication Paroxysmal atrial fibrillation (HC CODE) Postoperative ileus (HC CODE) Paraparesis (HC CODE) Ataxia Cellulitis Peripheral vascular disease (HC CODE) Lower extremity ulceration, right, with fat layer exposed (HC CODE) Education regarding disease process, wound care, pressure relief and elevation discussed with patient today. Time spent with patient and patient care related issues in addition to coordination of patient's care with other physicians/agencies: Discharge Instructions were given to patient, significant other, caregiver, or DPOHC. Follow-up Wound Right Leg Medial Blister (bullae) (Active) Wound Right Foot Plantar (Active) Dressing Status / Change Moist with drainage 08/22/23 1300 Wound Bed Appearance Red 08/22/23 1300 Drainage Amount Scant 08/22/23 1300 Drainage Appearance Serous 08/22/23 1300 Odor None 08/22/23 1300 Wound cleanser Normal saline 08/22/23 1300 Specific Procedures Other (Comment) 07/25/23 1331 Advanced Wound Intervention Photos 08/22/23 1300 Wound length (cm) 0.3 cm 08/22/23 1324 Wound width (cm) 0.3 cm 08/22/23 1324 Wound depth (cm) 0.15 cm 08/22/23 1324 Wound Surface Area (length x width) 0.09 08/22/23 1324 Undermining / Tunneling No 03/07/23 1300 Periwound (surrounding) tissue Calloused;Macerated 08/22/23 1300 Primary Dressing Collagens;Alginate;Antimicrobial 08/22/23 1324 Secondary Dressing Foam Dressing-Silicone Boarder 08/22/23 1324 Objective Vitals Signs: Visit Vitals BP 136/72 Pulse 80 Temp 96.7 F (35.9 C) Resp 16 OB Status Postmenopausal Smoking Status Former General Exam GENERAL: The patient is in no acute distress. RESP: Nonlabored breathing. No distress. Normal respirations. ABD: benign EXTREMITIES: No signs of infection to the right lower extremity Medications and Allergies No outpatient medications have been marked as taking for the 08/22/23 encounter (Hospital Encounter)with [facility] 1. Allergies Allergen Reactions Tape 1"X5yd [Adhesive Tape] Rash Redness. Avoids. Prefers paper tape Labs: WBC COUNT Date Value Ref Range Status 01/11/2023 7.3 3.5 - 10.9 K/uL Final HEMOGLOBIN Date Value Ref Range Status 01/11/2023 13.9 11.2 - 15.7 G/DL Final HEMATOCRIT Date Value Ref Range Status 01/11/2023 40.3 34.0 - 49.0 % Final PLATELET COUNT Date Value Ref Range Status 01/11/2023 252 140 - 400 K/uL Final SODIUM Date Value Ref Range Status 01/11/2023 141 135 - 148 MEQ/L Final 10/21/2020 135 135 - 148 MEQ/L POTASSIUM Date Value Ref Range Status 01/11/2023 4.7 3.4 - 5.3 MEQ/L Final CHLORIDE Date Value Ref Range Status 01/11/2023 103 96 - 110 MEQ/L Final CARBON DIOXIDE Date Value Ref Range Status 01/11/2023 24 19 - 32 MEQ/L Final GLUCOSE Date Value Ref Range Status 01/11/2023 207 70 - 99 MG/DL Final Comment: (NOTE) The [place] [employer] recommends the following guidelines: MG/DL <100 = NORMAL GLUCOSE 100-125= IMPAIRED FASTING GLUCOSE >=126 = PROVISIONAL DIAGNOSIS OF DIABETES ADA Workgroup Report, Diabetic Care, volume 40August 2016 CREATININE Date Value Ref Range Status 01/11/2023 0.9 0.5 - 1.2 MG/DL Final BUN Date Value Ref Range Status 01/11/2023 28 3 - 29 MG/DL Final CALCIUM Date Value Ref Range Status 01/11/2023 10.3 8.5 - 10.5 MG/DL Final ALBUMIN, SERUM Date Value Ref Range Status 10/16/2020 2.9 3.5 - 5.2 GM/DL PROTHROMBIN TIME Date Value Ref Range Status 05/15/2019 13.0 11.7 - 13.9 SECONDS PARTIAL THROMBOPLASTIN TIME Date Value Ref Range Status 05/15/2019 23.3 24.5 - 35.2 SECONDS INR Date Value Ref Range Status 05/15/2019 1.0 0.9 - 1.1 Comment: MODERATE-INTENSITY WARFARIN THERAPY: 2.0-3.0 HIGHER-INTENSITY WARFARIN THERAPY: 3.0-4.0 HEMOGLOBIN A1C Date Value Ref Range Status 01/11/2023 8.4 4.0 - 6.0 % Final Comment: (NOTE) The [place] [employer] recommends the following Guidelines: 5.7-6.4% Indicates increased risk for diabetes (Prediabetes). >6.5% Diagnostic of diabetes. In the absence of unequivocal hyperglycemia, results should be confirmed by repeat test. <7% Glycemic recommendation for non adults with diabetes. [place] [employer], Standards of Medical Care in Diabetes, Volume 40; 2017 Debridement Procedure Note Site of debridement: Right foot Time out performed prior to treatment. Indication: Removal of nonviable tissue, fibrin, and exudates/slough Anesthesia: topical lidocaine per orders when needed Procedure: Excisional debridement was done using a scalpel and/or curette to remove the nonviable tissue and/or slough/exudates and fibrin after patient placed in a comfortable position. Nonexcisional debridement also done using 4x4 gauze and/or irrigation and/or cotton tip applicator. Level of Debridement: Subcutaneous Total area debrided (sqcm): 0.09 Response to procedure: satisfactory Complications: none Post debridement measurements done by RN and reviewed by myself Inocencio Mcfadden DPM [facility] documented in this encounterMemorial Health [id number] Miscellaneous Notes* Care Plan - Trini Boyce RN - 08/22/2023 1:30 PM EST Progressing. documented in this encounterMemorial Health [id number] Note* Care Plan - Trini Boyce RN - 08/22/2023 1:30 PM EST Progressing. [facility] [id number] Hospital Discharge instructions* Discharge Instructions * Trini Boyce RN - 08/19/2023 10:21 AM EST You have been treated at [facility] for reasons of wound healing. WOUND CARE: With Dressing Changes - wash your hands prior to starting and after you finish and dispose of old materials properly. The following wound care procedure has been ordered for you in treating your wound: Wound location: Right plantar foot Cleanse with: saline/wound cleanser Apply to wound: collagen powder, silver alginate Secure with: bordered foam Change Dressing: M-W-F Wear diabetic shoe insert with additional C-felt padding whenever walking. Return: 2 weeks SPECIAL INSTRUCTIONS: Nutrition: Increase dietary protein intake as instructed. Foot Wear: Follow specialty footwear instructions as advised. Off loading/Pressure Reduce: PRECAUTIONS: If any of the following occur, contact [phone] immediately or go to your nearest emergency room!! Fever over 101 degrees Increase in drainage Redness around wound and/or streaking Odor or drainage Increase in pain Increased swelling Bleeding Need for compression bandage changes (slippage, breakthrough drainage) IF YOU ARE A DIABETIC: Gently dry well including between your toes Inspect feet/legs DAILY for skin problems, blisters, etc. Wear socks/stockings at all times Tell us if you need assistance putting on your socks or shoes Elevate your feet often, if swelling reaches your legs Wear compression garments as instructed Call us if you are sick, have a cold or flu HOME MEDICATIONS AT DISCHARGE Warning, if you take acetaminophen products: No more than 3Gms or 3000mg of acetaminophen (Tylenol)should be taken daily (eg. 6 extra-strength Tylenol). Be aware that multiple medications contain tylenol products(eg.vicodin, lortab, percocet, darvocet, and nonaspirin pain relievers). FUTURE VISIT INFORMATION: Call us if you are unable to come, leave a message if unable to speak to a staff member Every effort will be made to keep your scheduled appointment, [facility] In that case we will reschedule your treatments as soon as possible. Your signature verifies that we have reviewed this document and that you understand the importance of the information above and acknowledge receipt of same. Failure to comply with these reminders mayresult in delay of your care and/or termination of treatment. If you have any questions, please call us at [phone] documented in this encounterMemorial Health [id number] History of Present illness Narrative* Estiven Mcfadden DPM - 08/01/2023 1:30 PM EST [facility] 08/01/2023 Patient Name: Hanna Nelson : 1940 AGE: [age] year old GENDER: Female Chief Complaint/Reason for Visit Hanna Nelson is a 81 year old female who presents today for wound care of chronic wound on the bottom of the right foot. No changes from previous. 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 Doing well today Assessment/Dermatologic Exam/Plan Assessment -Right lower extremity ulceration down to subcutaneous tissue (Daniels grade 2) -Charcot foot deformity right foot -Type 2 diabetes mellitus with peripheral neuropathy -Abrasion right foot Plan -Patient was seen, evaluated, and treated today. -No signs of infection. Monitor off antibiotics. -Continue with diabetic shoe with offloading insert at all times while walking. -Wound does appear to be smaller today with less callus buildup -Still waiting to hear from clothing trades workers about new diabetic inserts and shoes and when these will be ready for her -Continue with local wound care -Did discuss that we could do a Charcot planing on the area in the future if the area remains persistent. Discussed that being an outpatient surgery with light anesthesia. -Any signs of infection before the next visit go to the emergency room -Follow-up 3 weeks because patient is going out of town Patient's Problem List Patient Active Problem List Diagnosis Essential hypertension Type 2 diabetes mellitus (HC CODE) Arthritis Hypothyroidism Palpitation Hyponatremia Spinal stenosis of lumbar region with neurogenic claudication Paroxysmal atrial fibrillation (HC CODE) Postoperative ileus (HC CODE) Paraparesis (HC CODE) Ataxia Cellulitis Peripheral vascular disease (HC CODE) Lower extremity ulceration, right, with fat layer exposed (HC CODE) Education regarding disease process, wound care, pressure relief and elevation discussed with patient today. Time spent with patient and patient care related issues in addition to coordination of patient's care with other physicians/agencies: Discharge Instructions were given to patient, significant other, caregiver, or DPOHC. Follow-up Wound Right Leg Medial Blister (bullae) (Active) Wound Right Foot Plantar (Active) Dressing Status / Change Moist with drainage 08/01/23 1300 Wound Bed Appearance Red 08/01/23 1300 Drainage Amount Small 08/01/23 1300 Drainage Appearance Serosanguineous 08/01/23 1300 Odor None 08/01/23 1300 Wound cleanser Normal saline 08/01/23 1300 Specific Procedures Other (Comment) 07/25/23 1331 Advanced Wound Intervention Photos 07/25/23 1300 Wound length (cm) 0.8 cm 08/01/23 1355 Wound width (cm) 0.6 cm 08/01/23 1355 Wound depth (cm) 0.3 cm 08/01/23 1355 Wound Surface Area (length x width) 0.48 08/01/23 1355 Undermining / Tunneling No 03/07/23 1300 Periwound (surrounding) tissue Calloused 08/01/23 1300 Primary Dressing Collagens;Alginate;Antimicrobial 08/01/23 1355 Secondary Dressing Foam Dressing-Silicone Boarder 08/01/23 1355 Objective Vitals Signs: Visit Vitals BP 138/67 Pulse 73 Temp 96.3 F (35.7 C) Resp 16 OB Status Postmenopausal Smoking Status Former General Exam GENERAL: The patient is in no acute distress. RESP: Nonlabored breathing. No distress. Normal respirations. ABD: benign EXTREMITIES: No signs of infection to the right lower extremity Medications and Allergies No outpatient medications have been marked as taking for the 08/01/23 encounter (Hospital Encounter) with [facility] 1. Allergies Allergen Reactions Tape 1"X5yd [Adhesive Tape] Rash Redness. Avoids. Prefers paper tape Labs: WBC COUNT Date Value Ref Range Status 01/11/2023 7.3 3.5 - 10.9 K/uL Final HEMOGLOBIN Date Value Ref Range Status 01/11/2023 13.9 11.2 - 15.7 G/DL Final HEMATOCRIT Date Value Ref Range Status 01/11/2023 40.3 34.0 - 49.0 % Final PLATELET COUNT Date Value Ref Range Status 01/11/2023 252 140 - 400 K/uL Final SODIUM Date Value Ref Range Status 01/11/2023 141 135 - 148 MEQ/L Final 10/21/2020 135 135 - 148 MEQ/L POTASSIUM Date Value Ref Range Status 01/11/2023 4.7 3.4 - 5.3 MEQ/L Final CHLORIDE Date Value Ref Range Status 01/11/2023 103 96 - 110 MEQ/L Final CARBON DIOXIDE Date Value Ref Range Status 01/11/2023 24 19 - 32 MEQ/L Final GLUCOSE Date Value Ref Range Status 01/11/2023 207 70 - 99 MG/DL Final Comment: (NOTE) The [place] [employer] recommends the following guidelines: MG/DL <100 = NORMAL GLUCOSE 100-125= IMPAIRED FASTING GLUCOSE >=126 = PROVISIONAL DIAGNOSIS OF DIABETES ADA Workgroup Report, Diabetic Care, volume 40August 2016 CREATININE Date Value Ref Range Status 01/11/2023 0.9 0.5 - 1.2 MG/DL Final BUN Date Value Ref Range Status 01/11/2023 28 3 - 29 MG/DL Final CALCIUM Date Value Ref Range Status 01/11/2023 10.3 8.5 - 10.5 MG/DL Final ALBUMIN, SERUM Date Value Ref Range Status 10/16/2020 2.9 3.5 - 5.2 GM/DL PROTHROMBIN TIME Date Value Ref Range Status 05/15/2019 13.0 11.7 - 13.9 SECONDS PARTIAL THROMBOPLASTIN TIME Date Value Ref Range Status 05/15/2019 23.3 24.5 - 35.2 SECONDS INR Date Value Ref Range Status 05/15/2019 1.0 0.9 - 1.1 Comment: MODERATE-INTENSITY WARFARIN THERAPY: 2.0-3.0 HIGHER-INTENSITY WARFARIN THERAPY: 3.0-4.0 HEMOGLOBIN A1C Date Value Ref Range Status 01/11/2023 8.4 4.0 - 6.0 % Final Comment: (NOTE) The [place] [employer] recommends the following Guidelines: 5.7-6.4% Indicates increased risk for diabetes (Prediabetes). >6.5% Diagnostic of diabetes. In the absence of unequivocal hyperglycemia, results should be confirmed by repeat test. <7% Glycemic recommendation for non adults with diabetes. [place] [employer], Standards of Medical Care in Diabetes, Volume 40; 2017 Debridement Procedure Note Site of debridement: Right foot Time out performed prior to treatment. Indication: Removal of nonviable tissue, fibrin, and exudates/slough Anesthesia: topical lidocaine per orders when needed Procedure: Excisional debridement was done using a scalpel and/or curette to remove the nonviable tissue and/or slough/exudates and fibrin after patient placed in a comfortable position. Nonexcisional debridement also done using 4x4 gauze and/or irrigation and/or cotton tip applicator. Level of Debridement: Subcutaneous Total area debrided (sqcm): 0.48 Response to procedure: satisfactory Complications: none Post debridement measurements done by RN and reviewed by myself Inocencio Mcfadden DPM [facility] documented in this encounterMemorial Health [id number] Miscellaneous Notes* Care Plan - Trini Boyce RN - 08/01/2023 1:30 PM EST No noted progression. Pt request to come back in 3 weeks due to holidays. documented in this encounterMemorial Health [id number] Note* Care Plan - Trini Boyce RN - 08/01/2023 1:30 PM EST No noted progression. Pt request to come back in 3 weeks due to holidays. [facility] [id number] NoteNo noted progression. Pt request to come back in 3 weeks due to holidays.[facility]12[facility]21[facility]2023 Hospital Discharge instructions* Discharge Instructions* Trini Boyce RN - 08/01/2023 12:43 PM EST You have been treated at [facility] for reasons of wound healing. WOUND CARE: With Dressing Changes - wash your hands prior to starting and after you finish and dispose of old materials properly. The following wound care procedure has been ordered for you in treating your wound: Wound location: Right plantar foot Cleanse with: saline/wound cleanser Apply to wound: collagen powder, silver alginate Secure with: bordered foam Change Dressing: M-W-F Wear diabetic shoe insert with additional C-felt padding whenever walking. Return: 3 weeks SPECIAL INSTRUCTIONS: Nutrition: Increase dietary protein intake as instructed. Foot Wear: Follow specialty footwear instructions as advised. Off loading/Pressure Reduce: PRECAUTIONS: If any of the following occur, contact [phone] immediately or go to your nearest emergency room!! Fever over 101 degrees Increase in drainage Redness around wound and/or streaking Odor or drainage Increase in pain Increased swelling Bleeding Need for compression bandage changes (slippage, breakthrough drainage) IF YOU ARE A DIABETIC: Gently dry well including between your toes Inspect feet/legs DAILY for skin problems, blisters, etc. Wear socks/stockings at all times Tell us if you need assistance putting on your socks or shoes Elevate your feet often, if swelling reaches your legs Wear compression garments as instructed Call us if you are sick, have a cold or flu HOME MEDICATIONS AT DISCHARGE Warning, if you take acetaminophen products: No more than 3Gms or 3000mg of acetaminophen (Tylenol)should be taken daily (eg. 6 extra-strength Tylenol). Be aware that multiple medications contain tylenol products(eg.vicodin, lortab, percocet, darvocet, and nonaspirin pain relievers). FUTURE VISIT INFORMATION: Call us if you are unable to come, leave a message if unable to speak to a staff member Every effort will be made to keep your scheduled appointment, [facility] In that case we will reschedule your treatments as soon as possible. Your signature verifies that we have reviewed this document and that you understand the importance of the information above and acknowledge receipt of same. Failure to comply with these reminders mayresult in delay of your care and/or termination of treatment. If you have any questions, please call us at [phone] documented in this encounterMemorial Health [id number] History of Present illness Narrative* Estiven Mcfadden DPM - 07/25/2023 1:30 PM EST [facility] 07/25/2023 Patient Name: Hanna Nelson : 1940 AGE: [age] year old GENDER: Female Chief Complaint/Reason for Visit Hanna Nelson is a 81 year old female who presents today for wound care of chronic wound on the bottom of the right foot. No changes from previous. 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 -No signs of infection. Monitor off antibiotics. -Continue with diabetic shoe with offloading insert at all times while walking. -Wound does appear to be smaller today with less callus buildup -Still waiting to hear from clothing trades workers about new diabetic inserts and shoes and when these will be ready for her -Continue with local wound care -Did discuss that we could do a Charcot planing on the area in the future if the area remains persistent. Discussed that being an outpatient surgery with light anesthesia. -Any signs of infection before the next visit go to the emergency room -Follow-up 1 weeks Patient's Problem List Patient Active Problem List Diagnosis Essential hypertension Type 2 diabetes mellitus (HC CODE) Arthritis Hypothyroidism Palpitation Hyponatremia Spinal stenosis of lumbar region with neurogenic claudication Paroxysmal atrial fibrillation (HC CODE) Postoperative ileus (HC CODE) Paraparesis (HC CODE) Ataxia Cellulitis Peripheral vascular disease (HC CODE) Lower extremity ulceration, right, with fat layer exposed (HC CODE) Education regarding disease process, wound care, pressure relief and elevation discussed with patient today. Time spent with patient and patient care related issues in addition to coordination of patient's care with other physicians/agencies: Discharge Instructions were given to patient, significant other, caregiver, or DPOHC. Follow-up Current Wound Measurements: Wound Right Leg Medial Blister (bullae) (Active) Wound Right Foot Plantar (Active) Dressing Status / Change Dry & Intact 07/25/23 1300 Wound Bed Appearance Red 07/11/23 1300 Drainage Amount Scant 07/11/23 1300 Drainage Appearance Red brown 07/11/23 1300 Odor None 07/25/23 1300 Wound cleanser Normal saline 07/25/23 1300 Specific Procedures Other (Comment) 07/25/23 1331 Advanced Wound Intervention Photos 07/25/23 1300 Wound length (cm) 0.2 cm 07/25/23 1331 Wound width (cm) 0.2 cm 07/25/23 1331 Wound depth (cm) 0.05 cm 07/25/23 1331 Wound Surface Area (length x width) 0.04 07/25/23 1331 Undermining / Tunneling No 03/07/23 1300 Periwound (surrounding) tissue Calloused 07/11/23 1300 Primary Dressing Collagens;Alginate;Antimicrobial 07/11/23 1400 Secondary Dressing Foam Dressing-Silicone Boarder 07/11/23 1400 Objective Vitals Signs: Visit Vitals BP 151/71 Pulse 74 Temp 97 F (36.1 C) Resp 16 OB Status Postmenopausal Smoking Status Former General Exam GENERAL: The patient is in no acute distress. RESP: Nonlabored breathing. No distress. Normal respirations. ABD: benign EXTREMITIES: No signs of infection to the right lower extremity Medications and Allergies No outpatient medications have been marked as taking for the 07/25/23 encounter (Hospital Encounter) with [facility]. Allergies Allergen Reactions Tape 1"X5yd [Adhesive Tape] Rash Redness. Avoids. Prefers paper tape Labs: WBC COUNT Date Value Ref Range Status 01/11/2023 7.3 3.5 - 10.9 K/uL Final HEMOGLOBIN Date Value Ref Range Status 01/11/2023 13.9 11.2 - 15.7 G/DL Final HEMATOCRIT Date Value Ref Range Status 01/11/2023 40.3 34.0 - 49.0 % Final PLATELET COUNT Date Value Ref Range Status 01/11/2023 252 140 - 400 K/uL Final SODIUM Date Value Ref Range Status 01/11/2023 141 135 - 148 MEQ/L Final 10/21/2020 135 135 - 148 MEQ/L POTASSIUM Date Value Ref Range Status 01/11/2023 4.7 3.4 - 5.3 MEQ/L Final CHLORIDE Date Value Ref Range Status 01/11/2023 103 96 - 110 MEQ/L Final CARBON DIOXIDE Date Value Ref Range Status 01/11/2023 24 19 - 32 MEQ/L Final GLUCOSE Date Value Ref Range Status 01/11/2023 207 70 - 99 MG/DL Final Comment: (NOTE) The [place] [employer] recommends the following guidelines: MG/DL <100 = NORMAL GLUCOSE 100-125= IMPAIRED FASTING GLUCOSE >=126 = PROVISIONAL DIAGNOSIS OF DIABETES ADA Workgroup Report, Diabetic Care, volume 40August 2016 CREATININE Date Value Ref Range Status 01/11/2023 0.9 0.5 - 1.2 MG/DL Final BUN Date Value Ref Range Status 01/11/2023 28 3 - 29 MG/DL Final CALCIUM Date Value Ref Range Status 01/11/2023 10.3 8.5 - 10.5 MG/DL Final ALBUMIN, SERUM Date Value Ref Range Status 10/16/2020 2.9 3.5 - 5.2 GM/DL PROTHROMBIN TIME Date Value Ref Range Status 05/15/2019 13.0 11.7 - 13.9 SECONDS PARTIAL THROMBOPLASTIN TIME Date Value Ref Range Status 05/15/2019 23.3 24.5 - 35.2 SECONDS INR Date Value Ref Range Status 05/15/2019 1.0 0.9 - 1.1 Comment: MODERATE-INTENSITY WARFARIN THERAPY: 2.0-3.0 HIGHER-INTENSITY WARFARIN THERAPY: 3.0-4.0 HEMOGLOBIN A1C Date Value Ref Range Status 01/11/2023 8.4 4.0 - 6.0 % Final Comment: (NOTE) The [place] [employer] recommends the following Guidelines: 5.7-6.4% Indicates increased risk for diabetes (Prediabetes). >6.5% Diagnostic of diabetes. In the absence of unequivocal hyperglycemia, results should be confirmed by repeat test. <7% Glycemic recommendation for non adults with diabetes. [place] [employer], Standards of Medical Care in Diabetes, Volume 40; 2017 Debridement Procedure Note Site of debridement: Right foot Time out performed prior to treatment. Indication: Removal of nonviable tissue, fibrin, and exudates/slough Anesthesia: topical lidocaine per orders when needed Procedure: Excisional debridement was done using a scalpel and/or curette to remove the nonviable tissue and/or slough/exudates and fibrin after patient placed in a comfortable position. Nonexcisional debridement also done using 4x4 gauze and/or irrigation and/or cotton tip applicator. Level of Debridement: Subcutaneous Total area debrided (sqcm): 0.04 Response to procedure: satisfactory Complications: none Post debridement measurements done by RN and reviewed by myself nIocencio Mcfadden DPM [facility] documented in this [facility]12-14-2023 Miscellaneous Notes* Care Plan - Trini Boyce RN - 07/25/2023 1:30 PM EST Progressing. documented in this encounterMemorial Health [id number] Note* Care Plan - Trini Boyce RN - 07/25/2023 1:30 PM EST Progressing. [facility] [id number] Hospital Discharge instructions* Discharge Instructions * Trini Boyce RN - 07/24/2023 3:26 PM EST You have been treated at [facility] for reasons of wound healing. WOUND CARE: With Dressing Changes - wash your hands prior to starting and after you finish and dispose of old materials properly. The following wound care procedure has been ordered for you in treating your wound: Wound location: Right plantar foot Cleanse with: saline/wound cleanser Apply to wound: collagen powder, silver alginate Secure with: bordered foam Change Dressing: M-W-F Wear diabetic shoe insert with additional C-felt padding whenever walking. Return: 2 weeks SPECIAL INSTRUCTIONS: Nutrition: Increase dietary protein intake as instructed. Foot Wear: Follow specialty footwear instructions as advised. Off loading/Pressure Reduce: PRECAUTIONS: If any of the following occur, contact [phone] immediately or go to your nearest emergency room!! Fever over 101 degrees Increase in drainage Redness around wound and/or streaking Odor or drainage Increase in pain Increased swelling Bleeding Need for compression bandage changes (slippage, breakthrough drainage) IF YOU ARE A DIABETIC: Gently dry well including between your toes Inspect feet/legs DAILY for skin problems, blisters, etc. Wear socks/stockings at all times Tell us if you need assistance putting on your socks or shoes Elevate your feet often, if swelling reaches your legs Wear compression garments as instructed Call us if you are sick, have a cold or flu HOME MEDICATIONS AT DISCHARGE Warning, if you take acetaminophen products: No more than 3Gms or 3000mg of acetaminophen (Tylenol)should be taken daily (eg. 6 extra-strength Tylenol). Be aware that multiple medications contain tylenol products(eg.vicodin, lortab, percocet, darvocet, and nonaspirin pain relievers). FUTURE VISIT INFORMATION: Call us if you are unable to come, leave a message if unable to speak to a staff member Every effort will be made to keep your scheduled appointment, [facility]. In that case we will reschedule your treatments as soon as possible. Your signature verifies that we have reviewed this document and that you understand the importance of the information above and acknowledge receipt of same. Failure to comply with these reminders mayresult in delay of your care and/or termination of treatment. If you have any questions, please call us at [phone] documented in this encounterMemorial Health [id number] History of Present illness Narrative* Estiven Mcfadden DPM - 07/11/2023 1:30 PM EST [facility] Wound Care Center 07/11/2023 Patient Name: Hanna Nelson : 1940 AGE: [age] year old GENDER: Female Chief Complaint/Reason for Visit Hanna Nelson is a 81 year old female who presents today for wound care of chronic wound on the bottom of the right foot. No changes from previous. 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 -No signs of infection. Monitor off antibiotics. -Continue with diabetic shoe with offloading insert at all times while walking. -Continue with current diabetic shoe and peg assist offloading insert. Patient says her clothing trades workers modify this little bit as well -Still waiting to hear back from her clothing trades workers when her diabetic shoes will be ready -Continue with local wound care -Did discuss that we could do a Charcot planing on the area in the future if the area remains persistent. Discussed that being an outpatient surgery with light anesthesia. -Any signs of infection before the next visit go to the emergency room -Follow-up 2 weeks Patient's Problem List Patient Active Problem List Diagnosis Essential hypertension Type 2 diabetes mellitus (HC CODE) Arthritis Hypothyroidism Palpitation Hyponatremia Spinal stenosis of lumbar region with neurogenic claudication Paroxysmal atrial fibrillation (HC CODE) Postoperative ileus (HC CODE) Paraparesis (HC CODE) Ataxia Cellulitis Peripheral vascular disease (HC CODE) Lower extremity ulceration, right, with fat layer exposed (HC CODE) Education regarding disease process, wound care, pressure relief and elevation discussed with patient today. Time spent with patient and patient care related issues in addition to coordination of patient's care with other physicians/agencies: Discharge Instructions were given to patient, significant other, caregiver, or DPOHC. Follow-up Current Wound Measurements: Wound Right Leg Medial Blister (bullae) (Active) Wound Right Foot Plantar (Active) Dressing Status / Change Moist with drainage 07/11/23 1300 Wound Bed Appearance Red 07/11/23 1300 Drainage Amount Scant 07/11/23 1300 Drainage Appearance Red brown 07/11/23 1300 Odor None 07/11/23 1300 Wound cleanser Wound cleanser 07/11/23 1300 Advanced Wound Intervention Photos 07/11/23 1300 Wound length (cm) 0.2 cm 07/11/23 1358 Wound width (cm) 0.2 cm 07/11/23 1358 Wound depth (cm) 0.1 cm 07/11/23 1358 Wound Surface Area (length x width) 0.04 07/11/23 1358 Undermining / Tunneling No 03/07/23 1300 Periwound (surrounding) tissue Calloused 07/11/23 1300 Primary Dressing Collagens;Alginate;Antimicrobial 07/11/23 1400 Secondary Dressing Foam Dressing-Silicone Boarder 07/11/23 1400 Objective Vitals Signs: Visit Vitals BP 146/74 Pulse 108 Temp 97.3 F (36.3 C) Resp 16 OB Status Postmenopausal Smoking Status Former General Exam GENERAL: The patient is in no acute distress. RESP: Nonlabored breathing. No distress. Normal respirations. ABD: benign EXTREMITIES: No signs of infection to the right lower extremity Medications and Allergies No outpatient medications have been marked as taking for the 07/11/23 encounter (Hospital Encounter) with [facility] 1. Allergies Allergen Reactions Tape 1"X5yd [Adhesive Tape] Rash Redness. Avoids. Prefers paper tape Labs: WBC COUNT Date Value Ref Range Status 01/11/2023 7.3 3.5 - 10.9 K/uL Final HEMOGLOBIN Date Value Ref Range Status 01/11/2023 13.9 11.2 - 15.7 G/DL Final HEMATOCRIT Date Value Ref Range Status 01/11/2023 40.3 34.0 - 49.0 % Final PLATELET COUNT Date Value Ref Range Status 01/11/2023 252 140 - 400 K/uL Final SODIUM Date Value Ref Range Status 01/11/2023 141 135 - 148 MEQ/L Final 10/21/2020 135 135 - 148 MEQ/L POTASSIUM Date Value Ref Range Status 01/11/2023 4.7 3.4 - 5.3 MEQ/L Final CHLORIDE Date Value Ref Range Status 01/11/2023 103 96 - 110 MEQ/L Final CARBON DIOXIDE Date Value Ref Range Status 01/11/2023 24 19 - 32 MEQ/L Final GLUCOSE Date Value Ref Range Status 01/11/2023 207 70 - 99 MG/DL Final Comment: (NOTE) The [place] [employer] recommends the following guidelines: MG/DL <100 = NORMAL GLUCOSE 100-125= IMPAIRED FASTING GLUCOSE >=126 = PROVISIONAL DIAGNOSIS OF DIABETES ADA Workgroup Report, Diabetic Care, volume 40August 2016 CREATININE Date Value Ref Range Status 01/11/2023 0.9 0.5 - 1.2 MG/DL Final BUN Date Value Ref Range Status 01/11/2023 28 3 - 29 MG/DL Final CALCIUM Date Value Ref Range Status 01/11/2023 10.3 8.5 - 10.5 MG/DL Final ALBUMIN, SERUM Date Value Ref Range Status 10/16/2020 2.9 3.5 - 5.2 GM/DL PROTHROMBIN TIME Date Value Ref Range Status 05/15/2019 13.0 11.7 - 13.9 SECONDS PARTIAL THROMBOPLASTIN TIME Date Value Ref Range Status 05/15/2019 23.3 24.5 - 35.2 SECONDS INR Date Value Ref Range Status 05/15/2019 1.0 0.9 - 1.1 Comment: MODERATE-INTENSITY WARFARIN THERAPY: 2.0-3.0 HIGHER-INTENSITY WARFARIN THERAPY: 3.0-4.0 HEMOGLOBIN A1C Date Value Ref Range Status 01/11/2023 8.4 4.0 - 6.0 % Final Comment: (NOTE) The [place] [employer] recommends the following Guidelines: 5.7-6.4% Indicates increased risk for diabetes (Prediabetes). >6.5% Diagnostic of diabetes. In the absence of unequivocal hyperglycemia, results should be confirmed by repeat test. <7% Glycemic recommendation for non adults with diabetes. [place] [employer], Standards of Medical Care in Diabetes, Volume 40; 2017 Debridement Procedure Note Site of debridement: Right foot Time out performed prior to treatment. Indication: Removal of nonviable tissue, fibrin, and exudates/slough Anesthesia: topical lidocaine per orders when needed Procedure: Excisional debridement was done using a scalpel and/or curette to remove the nonviable tissue and/or slough/exudates and fibrin after patient placed in a comfortable position. Nonexcisional debridement also done using 4x4 gauze and/or irrigation and/or cotton tip applicator. Level of Debridement: Subcutaneous Total area debrided (sqcm): 0.04 Response to procedure: satisfactory Complications: none Post debridement measurements done by RN and reviewed by myself Inocencio Mcfadden DPM [facility] documented in this encounterMemorial Health [id number] Miscellaneous Notes* Care Plan - Trini Boyce RN - 07/11/2023 1:30 PM EST Progressing. documented in this encounterMemorial Health [id number] Note* Care Plan - Trini Boyce RN - 07/11/2023 1:30 PM EST Progressing. [facility] [id number] Hospital Discharge instructions* Discharge Instructions * Katey Herrera RN - 07/10/2023 9:20 AM EST You have been treated at [facility] for reasons of wound healing. WOUND CARE: With Dressing Changes - wash your hands prior to starting and after you finish and dispose of old materials properly. The following wound care procedure has been ordered for you in treating your wound: Wound location: Right plantar foot Cleanse with: saline/wound cleanser Apply to wound: collagen powder, silver alginate Secure with: bordered foam Change Dressing: M-W-F Wear diabetic shoe insert with additional C-felt padding whenever walking. Return: 2 weeks SPECIAL INSTRUCTIONS: Nutrition: Increase dietary protein intake as instructed. Foot Wear: Follow specialty footwear instructions as advised. Off loading/Pressure Reduce: PRECAUTIONS: If any of the following occur, contact [phone] immediately or go to your nearest emergency room!! Fever over 101 degrees Increase in drainage Redness around wound and/or streaking Odor or drainage Increase in pain Increased swelling Bleeding Need for compression bandage changes (slippage, breakthrough drainage) IF YOU ARE A DIABETIC: Gently dry well including between your toes Inspect feet/legs DAILY for skin problems, blisters, etc. Wear socks/stockings at all times Tell us if you need assistance putting on your socks or shoes Elevate your feet often, if swelling reaches your legs Wear compression garments as instructed Call us if you are sick, have a cold or flu HOME MEDICATIONS AT DISCHARGE Warning, if you take acetaminophen products: No more than 3Gms or 3000mg of acetaminophen (Tylenol)should be taken daily (eg. 6 extra-strength Tylenol). Be aware that multiple medications contain tylenol products(eg.vicodin, lortab, percocet, darvocet, and nonaspirin pain relievers). FUTURE VISIT INFORMATION: Call us if you are unable to come, leave a message if unable to speak to a staff member Every effort will be made to keep your scheduled appointment, [facility]. In that case we will reschedule your treatments as soon as possible. Your signature verifies that we have reviewed this document and that you understand the importance of the information above and acknowledge receipt of same. Failure to comply with these reminders mayresult in delay of your care and/or termination of treatment. If you have any questions, please call us at [phone] documented in this encounterMemorial Health [id number] History of Present illness Narrative* Estiven Mcfadden DPM - 06/20/2023 1:30 PM EST [facility] Wound Care Center 06/20/2023 Patient Name: Hanna Nelson : 1940 AGE: [age] year old GENDER: Female Chief Complaint/Reason for Visit Hanna Nelson is a 81 year old female who presents today for wound care of chronic wound on the bottom of the right foot. No changes from previous. Assessment/Dermatologic Exam/Plan Assessment -Right lower extremity ulceration down to subcutaneous tissue (Daniels grade 2) -Charcot foot deformity right foot -Type 2 diabetes mellitus with peripheral neuropathy -Abrasion right foot Plan -Patient was seen, evaluated, and treated today. -No signs of infection. Monitor off antibiotics. -Continue with diabetic shoe with offloading insert at all times while walking. -Continue with current diabetic shoe and peg assist offloading insert. 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 -Continue with local wound care -Did discuss that we could do a Charcot planing on the area in the future if the area remains persistent. Discussed that being an outpatient surgery with light anesthesia. -Any signs of infection before the next visit go to the emergency room -Follow-up 2 weeks Patient's Problem List Patient Active Problem List Diagnosis Essential hypertension Type 2 diabetes mellitus (HC CODE) Arthritis Hypothyroidism Palpitation Hyponatremia Spinal stenosis of lumbar region with neurogenic claudication Paroxysmal atrial fibrillation (HC CODE) Postoperative ileus (HC CODE) Paraparesis (HC CODE) Ataxia Cellulitis Peripheral vascular disease (HC CODE) Lower extremity ulceration, right, with fat layer exposed (HC CODE) Education regarding disease process, wound care, pressure relief and elevation discussed with patient today. Time spent with patient and patient care related issues in addition to coordination of patient's care with other physicians/agencies: Discharge Instructions were given to patient, significant other, caregiver, or DPOHC. Follow-up Current Wound Measurements: Wound Right Leg Medial Blister (bullae) (Active) Wound Right Foot Plantar (Active) Dressing Status / Change Moist with drainage 06/20/23 1300 Wound Bed Appearance Red 06/20/23 1300 Drainage Amount Moderate 06/20/23 1300 Drainage Appearance Serosanguineous 06/20/23 1300 Odor None 06/20/23 1300 Wound cleanser Normal saline 06/20/23 1300 Advanced Wound Intervention Photos 06/20/23 1300 Wound length (cm) 0.3 cm 06/20/23 1343 Wound width (cm) 0.2 cm 06/20/23 1343 Wound depth (cm) 0.15 cm 06/20/23 1343 Wound Surface Area (length x width) 0.06 06/20/23 1343 Undermining / Tunneling No 03/07/23 1300 Periwound (surrounding) tissue Calloused 06/20/23 1300 Primary Dressing Collagens;Alginate;Antimicrobial 06/20/23 1343 Secondary Dressing Foam Dressing-Silicone Boarder 06/20/23 134 Pressure Ulcer Data:. Objective Vitals Signs: Visit Vitals BP 166/72 Pulse 77 Temp 96.3 F (35.7 C) Resp 16 OB Status Postmenopausal Smoking Status Former General Exam GENERAL: The patient is in no acute distress. RESP: Nonlabored breathing. No distress. Normal respirations. ABD: benign EXTREMITIES: No signs of infection to the right lower extremity Medications and Allergies No outpatient medications have been marked as taking for the 06/20/23 encounter (Hospital Encounter)with [facility]. Allergies Allergen Reactions Tape 1"X5yd [Adhesive Tape] Rash Redness. Avoids. Prefers paper tape Labs: WBC COUNT Date Value Ref Range Status 01/11/2023 7.3 3.5 - 10.9 K/uL Final HEMOGLOBIN Date Value Ref Range Status 01/11/2023 13.9 11.2 - 15.7 G/DL Final HEMATOCRIT Date Value Ref Range Status 01/11/2023 40.3 34.0 - 49.0 % Final PLATELET COUNT Date Value Ref Range Status 01/11/2023 252 140 - 400 K/uL Final SODIUM Date Value Ref Range Status 01/11/2023 141 135 - 148 MEQ/L Final 10/21/2020 135 135 - 148 MEQ/L POTASSIUM Date Value Ref Range Status 01/11/2023 4.7 3.4 - 5.3 MEQ/L Final CHLORIDE Date Value Ref Range Status 01/11/2023 103 96 - 110 MEQ/L Final CARBON DIOXIDE Date Value Ref Range Status 01/11/2023 24 19 - 32 MEQ/L Final GLUCOSE Date Value Ref Range Status 01/11/2023 207 70 - 99 MG/DL Final Comment: (NOTE) The [place] [employer] recommends the following guidelines: MG/DL <100 = NORMAL GLUCOSE 100-125= IMPAIRED FASTING GLUCOSE >=126 = PROVISIONAL DIAGNOSIS OF DIABETES ADA Workgroup Report, Diabetic Care, volume 40August 2016 CREATININE Date Value Ref Range Status 01/11/2023 0.9 0.5 - 1.2 MG/DL Final BUN Date Value Ref Range Status 01/11/2023 28 3 - 29 MG/DL Final CALCIUM Date Value Ref Range Status 01/11/2023 10.3 8.5 - 10.5 MG/DL Final ALBUMIN, SERUM Date Value Ref Range Status 10/16/2020 2.9 3.5 - 5.2 GM/DL PROTHROMBIN TIME Date Value Ref Range Status 05/15/2019 13.0 11.7 - 13.9 SECONDS PARTIAL THROMBOPLASTIN TIME Date Value Ref Range Status 05/15/2019 23.3 24.5 - 35.2 SECONDS INR Date Value Ref Range Status 05/15/2019 1.0 0.9 - 1.1 Comment: MODERATE-INTENSITY WARFARIN THERAPY: 2.0-3.0 HIGHER-INTENSITY WARFARIN THERAPY: 3.0-4.0 HEMOGLOBIN A1C Date Value Ref Range Status 01/11/2023 8.4 4.0 - 6.0 % Final Comment: (NOTE) The [place] [employer] recommends the following Guidelines: 5.7-6.4% Indicates increased risk for diabetes (Prediabetes). >6.5% Diagnostic of diabetes. In the absence of unequivocal hyperglycemia, results should be confirmed by repeat test. <7% Glycemic recommendation for non adults with diabetes. [place] [employer], Standards of Medical Care in Diabetes, Volume 40; 2017 Debridement Procedure Note Site of debridement: Right foot Time out performed prior to treatment. Indication: Removal of nonviable tissue, fibrin, and exudates/slough Anesthesia: topical lidocaine per orders when needed Procedure: Excisional debridement was done using a scalpel and/or curette to remove the nonviable tissue and/or slough/exudates and fibrin after patient placed in a comfortable position. Nonexcisional debridement also done using 4x4 gauze and/or irrigation and/or cotton tip applicator. Level of Debridement: Subcutaneous Total area debrided (sqcm): 0.06 Response to procedure: satisfactory Complications: none Post debridement measurements done by RN and reviewed by myself Inocencio Mcfadden DPM [facility] documented in this encounterMemorial Health [id number] Miscellaneous Notes* Care Plan - Trini Boyce RN - 06/20/2023 1:30 PM EST Progressing. Collagen powder ordered through [facility]. documented in this encounterMemorial Health [id number] Note* Care Plan - Trini Boyce RN - 06/20/2023 1:30 PM EST Progressing. Collagen powder ordered through [facility]. [facility] [id number] NoteProgressing. Collagen powder ordered through [facility]. [facility]11-08-2023 Hospital Discharge instructions* Discharge Instructions* Trini Boyce RN - 06/19/2023 2:26 PM EST You have been treated at [facility] for reasons of wound healing. WOUND CARE: With Dressing Changes - wash your hands prior to starting and after you finish and dispose of old materials properly. The following wound care procedure has been ordered for you in treating your wound: Wound location: Right plantar foot Cleanse with: saline/wound cleanser Apply to wound: collagen powder, silver alginate Secure with: bordered foam Change Dressing: M-W-F Wear diabetic shoe insert with additional C-felt padding whenever walking. Return: 2 weeks SPECIAL INSTRUCTIONS: Nutrition: Increase dietary protein intake as instructed. Foot Wear: Follow specialty footwear instructions as advised. Off loading/Pressure Reduce: PRECAUTIONS: If any of the following occur, contact [phone] immediately or go to your nearest emergency room!! Fever over 101 degrees Increase in drainage Redness around wound and/or streaking Odor or drainage Increase in pain Increased swelling Bleeding Need for compression bandage changes (slippage, breakthrough drainage) IF YOU ARE A DIABETIC: Gently dry well including between your toes Inspect feet/legs DAILY for skin problems, blisters, etc. Wear socks/stockings at all times Tell us if you need assistance putting on your socks or shoes Elevate your feet often, if swelling reaches your legs Wear compression garments as instructed Call us if you are sick, have a cold or flu HOME MEDICATIONS AT DISCHARGE Warning, if you take acetaminophen products: No more than 3Gms or 3000mg of acetaminophen (Tylenol)should be taken daily (eg. 6 extra-strength Tylenol). Be aware that multiple medications contain tylenol products(eg.vicodin, lortab, percocet, darvocet, and nonaspirin pain relievers). FUTURE VISIT INFORMATION: Call us if you are unable to come, leave a message if unable to speak to a staff member Every effort will be made to keep your scheduled appointment, [facility] In that case we will reschedule your treatments as soon as possible. Your signature verifies that we have reviewed this document and that you understand the importance of the information above and acknowledge receipt of same. Failure to comply with these reminders mayresult in delay of your care and/or termination of treatment. If you have any questions, please call us at [phone] documented in this encounterMemorial Health [id number] History of Present illness Narrative* Estiven Mcfadden DPM - 06/06/2023 1:30 PM EDT [facility] 06/06/2023 Patient Name: Hanna Nelson : 1940 AGE: [age] year old GENDER: Female Chief Complaint/Reason for Visit Hanna Nelson is a 81 year old female who presents today for wound care of chronic wound on the bottom of the right foot. No changes from previous. Still not sure when she is going to be able to get her new diabetic shoes. [employer]cery Del[employer] said it could take some time for them to be ready Assessment/Dermatologic Exam/Plan Assessment -Right lower extremity ulceration down to subcutaneous tissue (Daniels grade 2) -Charcot foot deformity right foot -Type 2 diabetes mellitus with peripheral neuropathy -Abrasion right foot Plan -Patient was seen, evaluated, and treated today. -No signs of infection. Monitor off antibiotics. -Continue with diabetic shoe with offloading insert at all times while walking. -Continue with current diabetic shoe and peg assist offloading insert. 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 -Continue with local wound care -Did discuss that we could do a Charcot planing on the area in the future if the area remains persistent. Discussed that being an outpatient surgery with light anesthesia. -Any signs of infection before the next visit go to the emergency room -Follow-up 2 weeks Patient's Problem List Patient Active Problem List Diagnosis Essential hypertension Type 2 diabetes mellitus (HC CODE) Arthritis Hypothyroidism Palpitation Hyponatremia Spinal stenosis of lumbar region with neurogenic claudication Paroxysmal atrial fibrillation (HC CODE) Postoperative ileus (HC CODE) Paraparesis (HC CODE) Ataxia Cellulitis Peripheral vascular disease (HC CODE) Lower extremity ulceration, right, with fat layer exposed (HC CODE) Education regarding disease process, wound care, pressure relief and elevation discussed with patient today. Time spent with patient and patient care related issues in addition to coordination of patient's care with other physicians/agencies: Discharge Instructions were given to patient, significant other, caregiver, or DPOHC. Follow-up Current Wound Measurements: Wound Right Leg Medial Blister (bullae) (Active) Wound Right Foot Plantar (Active) Dressing Status / Change Moist with drainage 06/06/23 1300 Wound Bed Appearance Red 06/06/23 1300 Drainage Amount Moderate 06/06/23 1300 Drainage Appearance Bloody 06/06/23 1300 Odor None 06/06/23 1300 Wound cleanser Normal saline 06/06/23 1300 Advanced Wound Intervention Photos 04/18/23 1336 Wound length (cm) 0.3 cm 06/06/23 1342 Wound width (cm) 0.4 cm 06/06/23 1342 Wound depth (cm) 0.25 cm 06/06/23 1342 Wound Surface Area (length x width) 0.12 06/06/23 1342 Undermining / Tunneling No 03/07/23 1300 Periwound (surrounding) tissue Macerated;Calloused 06/06/23 1300 Primary Dressing Collagens;Alginate;Antimicrobial 06/06/23 1342 Secondary Dressing Foam Dressing-Silicone Boarder 06/06/23 1342 Pressure Ulcer Data:. Objective Vitals Signs: Visit Vitals BP 141/85 Pulse 77 Temp 97.3 F (36.3 C) Resp 16 OB Status Postmenopausal Smoking Status Former General Exam GENERAL: The patient is in no acute distress. RESP: Nonlabored breathing. No distress. Normal respirations. ABD: benign EXTREMITIES: No signs of infection to the right lower extremity Medications and Allergies No outpatient medications have been marked as taking for the 06/06/23 encounter (Hospital Encounter) with [facility] 2. Allergies Allergen Reactions Tape 1"X5yd [Adhesive Tape] Rash Redness. Avoids. Prefers paper tape Labs: WBC COUNT Date Value Ref Range Status 01/11/2023 7.3 3.5 - 10.9 K/uL Final HEMOGLOBIN Date Value Ref Range Status 01/11/2023 13.9 11.2 - 15.7 G/DL Final HEMATOCRIT Date Value Ref Range Status 01/11/2023 40.3 34.0 - 49.0 % Final PLATELET COUNT Date Value Ref Range Status 01/11/2023 252 140 - 400 K/uL Final SODIUM Date Value Ref Range Status 01/11/2023 141 135 - 148 MEQ/L Final 10/21/2020 135 135 - 148 MEQ/L POTASSIUM Date Value Ref Range Status 01/11/2023 4.7 3.4 - 5.3 MEQ/L Final CHLORIDE Date Value Ref Range Status 01/11/2023 103 96 - 110 MEQ/L Final CARBON DIOXIDE Date Value Ref Range Status 01/11/2023 24 19 - 32 MEQ/L Final GLUCOSE Date Value Ref Range Status 01/11/2023 207 70 - 99 MG/DL Final Comment: (NOTE) The [place] [employer] recommends the following guidelines: MG/DL <100 = NORMAL GLUCOSE 100-125= IMPAIRED FASTING GLUCOSE >=126 = PROVISIONAL DIAGNOSIS OF DIABETES ADA Workgroup Report, Diabetic Care, volume 40August 2016 CREATININE Date Value Ref Range Status 01/11/2023 0.9 0.5 - 1.2 MG/DL Final BUN Date Value Ref Range Status 01/11/2023 28 3 - 29 MG/DL Final CALCIUM Date Value Ref Range Status 01/11/2023 10.3 8.5 - 10.5 MG/DL Final ALBUMIN, SERUM Date Value Ref Range Status 10/16/2020 2.9 3.5 - 5.2 GM/DL PROTHROMBIN TIME Date Value Ref Range Status 05/15/2019 13.0 11.7 - 13.9 SECONDS PARTIAL THROMBOPLASTIN TIME Date Value Ref Range Status 05/15/2019 23.3 24.5 - 35.2 SECONDS INR Date Value Ref Range Status 05/15/2019 1.0 0.9 - 1.1 Comment: MODERATE-INTENSITY WARFARIN THERAPY: 2.0-3.0 HIGHER-INTENSITY WARFARIN THERAPY: 3.0-4.0 HEMOGLOBIN A1C Date Value Ref Range Status 01/11/2023 8.4 4.0 - 6.0 % Final Comment: (NOTE) The [place] [employer] recommends the following Guidelines: 5.7-6.4% Indicates increased risk for diabetes (Prediabetes). >6.5% Diagnostic of diabetes. In the absence of unequivocal hyperglycemia, results should be confirmed by repeat test. <7% Glycemic recommendation for non adults with diabetes. [place] [employer], Standards of Medical Care in Diabetes, Volume 40; 2017 Debridement Procedure Note Site of debridement: Right foot Time out performed prior to treatment. Indication: Removal of nonviable tissue, fibrin, and exudates/slough Anesthesia: topical lidocaine per orders when needed Procedure: Excisional debridement was done using a scalpel and/or curette to remove the nonviable tissue and/or slough/exudates and fibrin after patient placed in a comfortable position. Nonexcisional debridement also done using 4x4 gauze and/or irrigation and/or cotton tip applicator. Level of Debridement: Subcutaneous Total area debrided (sqcm): 0.12 Response to procedure: satisfactory Complications: none Post debridement measurements done by RN and reviewed by myself Inocencio Mcfadden DPM [facility] documented in this encounterMemorial Health [id number] Miscellaneous Notes* Care Plan - Trini Boyce RN - 06/06/2023 1:30 PM EDT Progressing. documented in this encounterMemorial Health [id number] Note* Care Plan - Trini Boyce RN - 06/06/2023 1:30 PM EDT Progressing. [facility] [id number] Hospital Discharge instructions* Discharge Instructions * Trini Boyce RN - 06/06/2023 9:22 AM EDT You have been treated at [facility] for reasons of wound healing. WOUND CARE: With Dressing Changes - wash your hands prior to starting and after you finish and dispose of old materials properly. The following wound care procedure has been ordered for you in treating your wound: Wound location: Right plantar foot Cleanse with: saline/wound cleanser Apply to wound: collagen, silver alginate Secure with: bordered foam Change Dressing: M-W-F Wear diabetic shoe insert with additional C-felt padding whenever walking. Return: 2 weeks SPECIAL INSTRUCTIONS: Nutrition: Increase dietary protein intake as instructed. Foot Wear: Follow specialty footwear instructions as advised. Off loading/Pressure Reduce: PRECAUTIONS: If any of the following occur, contact [phone] immediately or go to your nearest emergency room!! Fever over 101 degrees Increase in drainage Redness around wound and/or streaking Odor or drainage Increase in pain Increased swelling Bleeding Need for compression bandage changes (slippage, breakthrough drainage) IF YOU ARE A DIABETIC: Gently dry well including between your toes Inspect feet/legs DAILY for skin problems, blisters, etc. Wear socks/stockings at all times Tell us if you need assistance putting on your socks or shoes Elevate your feet often, if swelling reaches your legs Wear compression garments as instructed Call us if you are sick, have a cold or flu HOME MEDICATIONS AT DISCHARGE Warning, if you take acetaminophen products: No more than 3Gms or 3000mg of acetaminophen (Tylenol)should be taken daily (eg. 6 extra-strength Tylenol). Be aware that multiple medications contain tylenol products(eg.vicodin, lortab, percocet, darvocet, and nonaspirin pain relievers). FUTURE VISIT INFORMATION: Call us if you are unable to come, leave a message if unable to speak to a staff member Every effort will be made to keep your scheduled appointment, [facility]. In that case we will reschedule your treatments as soon as possible. Your signature verifies that we have reviewed this document and that you understand the importance of the information above and acknowledge receipt of same. Failure to comply with these reminders mayresult in delay of your care and/or termination of treatment. If you have any questions, please call us at [phone] documented in this encounterMemorial Health [id number] History of Present illness Narrative* Estiven Mcfadden DPM - 05/23/2023 1:30 PM EDT [facility] 05/23/2023 Patient Name: Hanna Nelson : 1940 AGE: [age] year old GENDER: Female Chief Complaint/Reason for Visit Hanna Nelson is a 81 year old female who presents today for wound care of chronic wound on the bottom of the right foot. No changes from previous. 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 She talked to her and said that the patient will need new diabetic shoes and inserts Assessment/Dermatologic Exam/Plan Assessment -Right lower extremity ulceration down to subcutaneous tissue (Daniels grade 2) -Charcot foot deformity right foot -Type 2 diabetes mellitus with peripheral neuropathy -Abrasion right foot Plan -Patient was seen, evaluated, and treated today. -No signs of infection. Monitor off antibiotics. -Continue with diabetic shoe with offloading insert at all times while walking. -I did review the patient's right foot x-ray that I had her get done. Her foot has basically becomea bone block with basically no joints in the midfoot or rear foot. Does have a plantar prominence of bone at the area of the wound clinically -I do want her to continue to proceed with getting new shoes and modified inserts. Did discuss thatwe could do a Charcot planing on the area in the future if the area remains persistent. Discussed that being an outpatient surgery with light anesthesia. -Any signs of infection before the next visit go to the emergency room -Follow-up 2 weeks for recheck and x-ray review Patient's Problem List Patient Active Problem List Diagnosis Essential hypertension Type 2 diabetes mellitus (HC CODE) Arthritis Hypothyroidism Palpitation Hyponatremia Spinal stenosis of lumbar region with neurogenic claudication Paroxysmal atrial fibrillation (HC CODE) Postoperative ileus (HC CODE) Paraparesis (HC CODE) Ataxia Cellulitis Peripheral vascular disease (HC CODE) Lower extremity ulceration, right, with fat layer exposed (HC CODE) Education regarding disease process, wound care, pressure relief and elevation discussed with patient today. Time spent with patient and patient care related issues in addition to coordination of patient's care with other physicians/agencies: Discharge Instructions were given to patient, significant other, caregiver, or DPOHC. Follow-up Current Wound Measurements: Wound Right Leg Medial Blister (bullae) (Active) Wound Right Foot Plantar (Active) Dressing Status / Change Moist with drainage 05/23/23 1300 Wound Bed Appearance Red 05/23/23 1300 Drainage Amount Moderate 05/23/23 1300 Drainage Appearance Serosanguineous 05/23/23 1300 Odor None 05/23/23 1300 Wound cleanser Normal saline 05/23/23 1300 Advanced Wound Intervention Photos 04/18/23 1336 Wound length (cm) 0.3 cm 05/23/23 1354 Wound width (cm) 0.5 cm 05/23/23 1354 Wound depth (cm) 0.15 cm 05/23/23 1354 Wound Surface Area (length x width) 0.15 05/23/23 1354 Undermining / Tunneling No 03/07/23 1300 Periwound (surrounding) tissue Calloused 05/23/23 1300 Primary Dressing Collagens;Alginate;Antimicrobial 05/23/23 1400 Secondary Dressing Foam Dressing-Silicone Boarder;Other (Comment) 05/23/23 1400 Pressure Ulcer Data:. Objective Vitals Signs: Visit Vitals Temp 97.1 F (36.2 C) Resp 16 OB Status Postmenopausal Smoking Status Former General Exam GENERAL: The patient is in no acute distress. RESP: Nonlabored breathing. No distress. Normal respirations. ABD: benign EXTREMITIES: No signs of infection to the right lower extremity Medications and Allergies No outpatient medications have been marked as taking for the 05/23/23 encounter (Hospital Encounter) with [facility]. Allergies Allergen Reactions Tape 1"X5yd [Adhesive Tape] Rash Redness. Avoids. Prefers paper tape Labs: WBC COUNT Date Value Ref Range Status 01/11/2023 7.3 3.5 - 10.9 K/uL Final HEMOGLOBIN Date Value Ref Range Status 01/11/2023 13.9 11.2 - 15.7 G/DL Final HEMATOCRIT Date Value Ref Range Status 01/11/2023 40.3 34.0 - 49.0 % Final PLATELET COUNT Date Value Ref Range Status 01/11/2023 252 140 - 400 K/uL Final SODIUM Date Value Ref Range Status 01/11/2023 141 135 - 148 MEQ/L Final 10/21/2020 135 135 - 148 MEQ/L POTASSIUM Date Value Ref Range Status 01/11/2023 4.7 3.4 - 5.3 MEQ/L Final CHLORIDE Date Value Ref Range Status 01/11/2023 103 96 - 110 MEQ/L Final CARBON DIOXIDE Date Value Ref Range Status 01/11/2023 24 19 - 32 MEQ/L Final GLUCOSE Date Value Ref Range Status 01/11/2023 207 70 - 99 MG/DL Final Comment: (NOTE) The [place] [employer] recommends the following guidelines: MG/DL <100 = NORMAL GLUCOSE 100-125= IMPAIRED FASTING GLUCOSE >=126 = PROVISIONAL DIAGNOSIS OF DIABETES ADA Workgroup Report, Diabetic Care, volume 40, August 2016 CREATININE Date Value Ref Range Status 01/11/2023 0.9 0.5 - 1.2 MG/DL Final BUN Date Value Ref Range Status 01/11/2023 28 3 - 29 MG/DL Final CALCIUM Date Value Ref Range Status 01/11/2023 10.3 8.5 - 10.5 MG/DL Final ALBUMIN, SERUM Date Value Ref Range Status 10/16/2020 2.9 3.5 - 5.2 GM/DL PROTHROMBIN TIME Date Value Ref Range Status 05/15/2019 13.0 11.7 - 13.9 SECONDS PARTIAL THROMBOPLASTIN TIME Date Value Ref Range Status 05/15/2019 23.3 24.5 - 35.2 SECONDS INR Date Value Ref Range Status 05/15/2019 1.0 0.9 - 1.1 Comment: MODERATE-INTENSITY WARFARIN THERAPY: 2.0-3.0 HIGHER-INTENSITY WARFARIN THERAPY: 3.0-4.0 HEMOGLOBIN A1C Date Value Ref Range Status 01/11/2023 8.4 4.0 - 6.0 % Final Comment: (NOTE) The [place] [employer] recommends the following Guidelines: 5.7-6.4% Indicates increased risk for diabetes (Prediabetes). >6.5% Diagnostic of diabetes. In the absence of unequivocal hyperglycemia, results should be confirmed by repeat test. <7% Glycemic recommendation for non adults with diabetes. [place] [employer], Standards of Medical Care in Diabetes, Volume 40; 2017 Debridement Procedure Note Site of debridement: Right foot Time out performed prior to treatment. Indication: Removal of nonviable tissue, fibrin, and exudates/slough Anesthesia: topical lidocaine per orders when needed Procedure: Excisional debridement was done using a scalpel and/or curette to remove the nonviable tissue and/or slough/exudates and fibrin after patient placed in a comfortable position. Nonexcisional debridement also done using 4x4 gauze and/or irrigation and/or cotton tip applicator. Level of Debridement: Subcutaneous Total area debrided (sqcm): 0.15 Response to procedure: satisfactory Complications: none Post debridement measurements done by RN and reviewed by myself Inocencio Mcfadden DPM [facility] documented in this encounterMemorial Health [id number] Miscellaneous Notes* Care Plan - Trini Boyce RN - 05/23/2023 1:30 PM EDT Progressing. documented in this encounterMemorial Health [id number] Note* Care Plan - Trini Boyce RN - 05/23/2023 1:30 PM EDT Progressing. [facility] [id number] Hospital Discharge instructions* Discharge Instructions * Trini Boyce RN - 05/22/2023 3:53 PM EDT You have been treated at [facility] for reasons of wound healing. WOUND CARE: With Dressing Changes - wash your hands prior to starting and after you finish and dispose of old materials properly. The following wound care procedure has been ordered for you in treating your wound: Wound location: Right plantar foot Cleanse with: saline/wound cleanser Apply to wound: collagen, silver alginate Secure with: bordered foam Change Dressing: M-W-F Wear diabetic shoe insert with additional C-felt padding whenever walking. Return: 2 weeks SPECIAL INSTRUCTIONS: Nutrition: Increase dietary protein intake as instructed. Foot Wear: Follow specialty footwear instructions as advised. Off loading/Pressure Reduce: PRECAUTIONS: If any of the following occur, contact [phone] immediately or go to your nearest emergency room!! Fever over 101 degrees Increase in drainage Redness around wound and/or streaking Odor or drainage Increase in pain Increased swelling Bleeding Need for compression bandage changes (slippage, breakthrough drainage) IF YOU ARE A DIABETIC: Gently dry well including between your toes Inspect feet/legs DAILY for skin problems, blisters, etc. Wear socks/stockings at all times Tell us if you need assistance putting on your socks or shoes Elevate your feet often, if swelling reaches your legs Wear compression garments as instructed Call us if you are sick, have a cold or flu HOME MEDICATIONS AT DISCHARGE Warning, if you take acetaminophen products: No more than 3Gms or 3000mg of acetaminophen (Tylenol)should be taken daily (eg. 6 extra-strength Tylenol). Be aware that multiple medications contain tylenol products(eg.vicodin, lortab, percocet, darvocet, and nonaspirin pain relievers). FUTURE VISIT INFORMATION: Call us if you are unable to come, leave a message if unable to speak to a staff member Every effort will be made to keep your scheduled appointment, [facility] In that case we will reschedule your treatments as soon as possible. Your signature verifies that we have reviewed this document and that you understand the importance of the information above and acknowledge receipt of same. Failure to comply with these reminders mayresult in delay of your care and/or termination of treatment. If you have any questions, please call us at [phone] documented in this encounterMemorial Health [id number] History of Present illness Narrative* Lesa VIPUL Jean-Baptiste - 05/06/2023 1:30 PM EDT [facility] 05/06/2023 Patient Name: Hanna Nelson : 1940 AGE: [age] year old GENDER: Female Chief Complaint/Reason for Visit Hanna Nelson is a 81 year old female who presents today for wound care of chronic wound on the bottom of the right foot. No changes from previous Assessment/Dermatologic Exam/Plan Assessment -Right lower extremity ulceration down to subcutaneous tissue (Daniels grade 2) -Charcot foot deformity right foot -Type 2 diabetes mellitus with peripheral neuropathy -Abrasion right foot Plan -Patient was seen, evaluated, and treated today. -No signs of infection. Monitor off antibiotics. -Continue with diabetic shoe with offloading insert at all times while walking. -Given that wound has been stagnant with respect to healing, I am having the patient go back to herpodiatrist who originally made her custom diabetic inserts to have them further offloaded to the affected area -Did order updated right foot x-rays today -If not getting any better could consider a Charcot planing type surgery to try to better offload the area on the bottom of the foot to help wound closed and remain closed -Continue with local wound care to the area. -Any signs of infection before the next visit go to the emergency room -Follow-up 2 weeks for recheck and x-ray review Patient's Problem List Patient Active Problem List Diagnosis Essential hypertension Type 2 diabetes mellitus (HC CODE) Arthritis Hypothyroidism Palpitation Hyponatremia Spinal stenosis of lumbar region with neurogenic claudication Paroxysmal atrial fibrillation (HC CODE) Postoperative ileus (HC CODE) Paraparesis (HC CODE) Ataxia Cellulitis Peripheral vascular disease (HC CODE) Lower extremity ulceration, right, with fat layer exposed (HC CODE) Education regarding disease process, wound care, pressure relief and elevation discussed with patient today. Time spent with patient and patient care related issues in addition to coordination of patient's care with other physicians/agencies: Discharge Instructions were given to patient, significant other, caregiver, or DPOHC. Follow-up Current Wound Measurements: Wound Right Leg Medial Blister (bullae) (Active) Wound Right Foot Plantar (Active) Dressing Status / Change Moist with drainage 05/06/23 1300 Wound Bed Appearance Red 05/06/23 1300 Drainage Amount Moderate 05/06/23 1300 Drainage Appearance Serosanguineous 05/06/23 1300 Odor None 04/18/23 1336 Wound cleanser Normal saline 05/06/23 1300 Advanced Wound Intervention Photos 04/18/23 1336 Wound length (cm) 0.3 cm 05/06/23 1352 Wound width (cm) 0.3 cm 05/06/23 1352 Wound depth (cm) 0.2 cm 05/06/23 1352 Wound Surface Area (length x width) 0.09 05/06/23 1352 Undermining / Tunneling No 03/07/23 1300 Periwound (surrounding) tissue Calloused 05/06/23 1300 Primary Dressing Collagens;Alginate;Antimicrobial 05/06/23 1352 Secondary Dressing Foam Dressing-Silicone Boarder 05/06/23 1352 Pressure Ulcer Data:. Objective Vitals Signs: Visit Vitals BP 146/67 Pulse 80 Temp 96.7 F (35.9 C) Resp 14 OB Status Postmenopausal Smoking Status Former General Exam GENERAL: The patient is in no acute distress. RESP: Nonlabored breathing. No distress. Normal respirations. ABD: benign EXTREMITIES: No signs of infection to the right lower extremity Medications and Allergies No outpatient medications have been marked as taking for the 05/06/23 encounter (Hospital Encounter)with [facility]. Allergies Allergen Reactions Tape 1"X5yd [Adhesive Tape] Rash Redness. Avoids. Prefers paper tape Labs: WBC COUNT Date Value Ref Range Status 01/11/2023 7.3 3.5 - 10.9 K/uL Final HEMOGLOBIN Date Value Ref Range Status 01/11/2023 13.9 11.2 - 15.7 G/DL Final HEMATOCRIT Date Value Ref Range Status 01/11/2023 40.3 34.0 - 49.0 % Final PLATELET COUNT Date Value Ref Range Status 01/11/2023 252 140 - 400 K/uL Final SODIUM Date Value Ref Range Status 01/11/2023 141 135 - 148 MEQ/L Final 10/21/2020 135 135 - 148 MEQ/L POTASSIUM Date Value Ref Range Status 01/11/2023 4.7 3.4 - 5.3 MEQ/L Final CHLORIDE Date Value Ref Range Status 01/11/2023 103 96 - 110 MEQ/L Final CARBON DIOXIDE Date Value Ref Range Status 01/11/2023 24 19 - 32 MEQ/L Final GLUCOSE Date Value Ref Range Status 01/11/2023 207 70 - 99 MG/DL Final Comment: (NOTE) The [place] [employer] recommends the following guidelines: MG/DL <100 = NORMAL GLUCOSE 100-125= IMPAIRED FASTING GLUCOSE >=126 = PROVISIONAL DIAGNOSIS OF DIABETES ADA Workgroup Report, Diabetic Care, volume 40August 2016 CREATININE Date Value Ref Range Status 01/11/2023 0.9 0.5 - 1.2 MG/DL Final BUN Date Value Ref Range Status 01/11/2023 28 3 - 29 MG/DL Final CALCIUM Date Value Ref Range Status 01/11/2023 10.3 8.5 - 10.5 MG/DL Final ALBUMIN, SERUM Date Value Ref Range Status 10/16/2020 2.9 3.5 - 5.2 GM/DL PROTHROMBIN TIME Date Value Ref Range Status 05/15/2019 13.0 11.7 - 13.9 SECONDS PARTIAL THROMBOPLASTIN TIME Date Value Ref Range Status 05/15/2019 23.3 24.5 - 35.2 SECONDS INR Date Value Ref Range Status 05/15/2019 1.0 0.9 - 1.1 Comment: MODERATE-INTENSITY WARFARIN THERAPY: 2.0-3.0 HIGHER-INTENSITY WARFARIN THERAPY: 3.0-4.0 HEMOGLOBIN A1C Date Value Ref Range Status 01/11/2023 8.4 4.0 - 6.0 % Final Comment: (NOTE) The [place] [employer] recommends the following Guidelines: 5.7-6.4% Indicates increased risk for diabetes (Prediabetes). >6.5% Diagnostic of diabetes. In the absence of unequivocal hyperglycemia, results should be confirmed by repeat test. <7% Glycemic recommendation for non adults with diabetes. [place] [employer], Standards of Medical Care in Diabetes, Volume 40; 2017 Debridement Procedure Note Site of debridement: Right foot Time out performed prior to treatment. Indication: Removal of nonviable tissue, fibrin, and exudates/slough Anesthesia: topical lidocaine per orders when needed Procedure: Excisional debridement was done using a scalpel and/or curette to remove the nonviable tissue and/or slough/exudates and fibrin after patient placed in a comfortable position. Nonexcisional debridement also done using 4x4 gauze and/or irrigation and/or cotton tip applicator. Level of Debridement: Subcutaneous Total area debrided (sqcm): 0.09 Response to procedure: satisfactory Complications: none Post debridement measurements done by RN and reviewed by myself Inocencio Mcfadden DPM [facility] documented in this encounterMemorial Health [id number] Miscellaneous Notes* Care Plan - Trini Boyce RN - 05/06/2023 1:30 PM EDT Progressing. documented in this encounterMemorial Health [id number] Note* Care Plan - Trini Boyce RN - 05/06/2023 1:30 PM EDT Progressing. [facility] [id number] Hospital Discharge instructions* Discharge Instructions * Trini Boyce RN - 05/06/2023 10:12 AM EDT You have been treated at [facility] for reasons of wound healing. WOUND CARE: With Dressing Changes - wash your hands prior to starting and after you finish and dispose of old materials properly. The following wound care procedure has been ordered for you in treating your wound: Wound location: Right plantar foot Cleanse with: saline/wound cleanser Apply to wound: collagen, silver alginate Secure with: bordered foam Change Dressing: M-W-F Wear diabetic shoe insert with additional C-felt padding whenever walking. Call clothing trades workers to have diabetic shoes reevaluated. Obtain Xray of right foot. Return: May 23, 2023 SPECIAL INSTRUCTIONS: Nutrition: Increase dietary protein intake as instructed. Foot Wear: Follow specialty footwear instructions as advised. Off loading/Pressure Reduce: PRECAUTIONS: If any of the following occur, contact [phone] immediately or go to your nearest emergency room!! Fever over 101 degrees Increase in drainage Redness around wound and/or streaking Odor or drainage Increase in pain Increased swelling Bleeding Need for compression bandage changes (slippage, breakthrough drainage) IF YOU ARE A DIABETIC: Gently dry well including between your toes Inspect feet/legs DAILY for skin problems, blisters, etc. Wear socks/stockings at all times Tell us if you need assistance putting on your socks or shoes Elevate your feet often, if swelling reaches your legs Wear compression garments as instructed Call us if you are sick, have a cold or flu HOME MEDICATIONS AT DISCHARGE Warning, if you take acetaminophen products: No more than 3Gms or 3000mg of acetaminophen (Tylenol)should be taken daily (eg. 6 extra-strength Tylenol). Be aware that multiple medications contain tylenol products(eg.vicodin, lortab, percocet, darvocet, and nonaspirin pain relievers). FUTURE VISIT INFORMATION: Call us if you are unable to come, leave a message if unable to speak to a staff member Every effort will be made to keep your scheduled appointment, [facility] In that case we will reschedule your treatments as soon as possible. Your signature verifies that we have reviewed this document and that you understand the importance of the information above and acknowledge receipt of same. Failure to comply with these reminders mayresult in delay of your care and/or termination of treatment. If you have any questions, please call us at [phone] documented in this encounterMemorial Health [id number] History of Present illness Narrative* Estiven Mcfadden DPM - 04/18/2023 1:15 PM EDT [facility] 04/18/2023 Patient Name: Hanna Nelson : 1940 AGE: [age] year old GENDER: Female Chief Complaint/Reason for Visit Hanna Nelson is a 81 year old female who presents today for wound care of chronic wound on the bottom of the right foot. Patient is tolerating added offloading to her shoes well. She is going on vacation for the next 2 weeks. Assessment/Dermatologic Exam/Plan Assessment -Right lower extremity ulceration down to subcutaneous tissue (Daniels grade 2) -Charcot foot deformity right foot -Type 2 diabetes mellitus with peripheral neuropathy -Abrasion right foot Plan -Patient was seen, evaluated, and treated today. -No signs of infection. Monitor off antibiotics. -Continue with diabetic shoe with offloading insert at all times while walking. -If no noticeable improvement on the next visit ongoing send her back to her clothing trades workers at that time for further more formal modifications of the insert to better offload the area -Continue with local wound care to the area. -Any signs of infection before the next visit go to the emergency room -Follow-up 2 weeks for recheck Patient's Problem List Patient Active Problem List Diagnosis Essential hypertension Type 2 diabetes mellitus (HC CODE) Arthritis Hypothyroidism Palpitation Hyponatremia Spinal stenosis of lumbar region with neurogenic claudication Paroxysmal atrial fibrillation (HC CODE) Postoperative ileus (HC CODE) Paraparesis (HC CODE) Ataxia Cellulitis Peripheral vascular disease (HC CODE) Lower extremity ulceration, right, with fat layer exposed (HC CODE) Education regarding disease process, wound care, pressure relief and elevation discussed with patient today. Time spent with patient and patient care related issues in addition to coordination of patient's care with other physicians/agencies: Discharge Instructions were given to patient, significant other, caregiver, or DPOHC. Follow-up Current Wound Measurements: Wound Right Leg Medial Blister (bullae) (Active) Wound Right Foot Plantar (Active) Dressing Status / Change Moist with drainage 04/18/23 1336 Wound Bed Appearance Red 04/18/23 1336 Drainage Amount Moderate 04/18/23 1336 Drainage Appearance Red brown 04/18/23 1336 Odor None 04/18/23 1336 Wound cleanser Normal saline 04/18/23 1336 Advanced Wound Intervention Photos 04/18/23 1336 Wound length (cm) 0.2 cm 04/18/23 1336 Wound width (cm) 0.5 cm 04/18/23 1336 Wound depth (cm) 0.15 cm 04/18/23 1336 Wound Surface Area (length x width) 0.1 04/18/23 1336 Undermining / Tunneling No 03/07/23 1300 Periwound (surrounding) tissue Calloused;Macerated 04/04/23 1300 Primary Dressing Collagens;Alginate;Antimicrobial 04/04/23 1400 Secondary Dressing Foam Dressing-Silicone Boarder 04/04/23 1400 Wound Right Foot Lateral (Active) Dressing Status / Change Moist with drainage 04/18/23 1300 Wound Bed Appearance [place] 04/04/23 1300 Drainage Amount Moderate 04/18/23 1300 Drainage Appearance Red brown 04/18/23 1300 Odor None 04/18/23 1300 Wound cleanser Normal saline 04/18/23 1300 Advanced Wound Intervention Photos 04/18/23 1300 Wound length (cm) 0 cm 04/18/23 1336 Wound width (cm) 0 cm 04/18/23 1336 Wound depth (cm) 0 cm 04/18/23 1336 Wound Surface Area (length x width) 0 04/18/23 1336 Periwound (surrounding) tissue Calloused;Macerated 04/18/23 1300 Primary Dressing Band aids 03/21/23 1356 Secondary Dressing Foam Dressing-Silicone Boarder 04/04/23 1400 Pressure Ulcer Data:. Objective Vitals Signs: Visit Vitals BP 148/68 Pulse 64 Temp 97.3 F (36.3 C) Resp 16 OB Status Postmenopausal Smoking Status Former General Exam GENERAL: The patient is in no acute distress. RESP: Nonlabored breathing. No distress. Normal respirations. ABD: benign EXTREMITIES: No signs of infection to the right lower extremity Medications and Allergies No outpatient medications have been marked as taking for the 04/18/23 encounter (Hospital Encounter) with [facility] 4. Allergies Allergen Reactions Tape 1"X5yd [Adhesive Tape] Rash Redness. Avoids. Prefers paper tape Labs: WBC COUNT Date Value Ref Range Status 01/11/2023 7.3 3.5 - 10.9 K/uL Final HEMOGLOBIN Date Value Ref Range Status 01/11/2023 13.9 11.2 - 15.7 G/DL Final HEMATOCRIT Date Value Ref Range Status 01/11/2023 40.3 34.0 - 49.0 % Final PLATELET COUNT Date Value Ref Range Status 01/11/2023 252 140 - 400 K/uL Final SODIUM Date Value Ref Range Status 01/11/2023 141 135 - 148 MEQ/L Final 10/21/2020 135 135 - 148 MEQ/L POTASSIUM Date Value Ref Range Status 01/11/2023 4.7 3.4 - 5.3 MEQ/L Final CHLORIDE Date Value Ref Range Status 01/11/2023 103 96 - 110 MEQ/L Final CARBON DIOXIDE Date Value Ref Range Status 01/11/2023 24 19 - 32 MEQ/L Final GLUCOSE Date Value Ref Range Status 01/11/2023 207 70 - 99 MG/DL Final Comment: (NOTE) The [place] [employer] recommends the following guidelines: MG/DL <100 = NORMAL GLUCOSE 100-125= IMPAIRED FASTING GLUCOSE >=126 = PROVISIONAL DIAGNOSIS OF DIABETES ADA Workgroup Report, Diabetic Care, volume 40August 2016 CREATININE Date Value Ref Range Status 01/11/2023 0.9 0.5 - 1.2 MG/DL Final BUN Date Value Ref Range Status 01/11/2023 28 3 - 29 MG/DL Final CALCIUM Date Value Ref Range Status 01/11/2023 10.3 8.5 - 10.5 MG/DL Final ALBUMIN, SERUM Date Value Ref Range Status 10/16/2020 2.9 3.5 - 5.2 GM/DL PROTHROMBIN TIME Date Value Ref Range Status 05/15/2019 13.0 11.7 - 13.9 SECONDS PARTIAL THROMBOPLASTIN TIME Date Value Ref Range Status 05/15/2019 23.3 24.5 - 35.2 SECONDS INR Date Value Ref Range Status 05/15/2019 1.0 0.9 - 1.1 Comment: MODERATE-INTENSITY WARFARIN THERAPY: 2.0-3.0 HIGHER-INTENSITY WARFARIN THERAPY: 3.0-4.0 HEMOGLOBIN A1C Date Value Ref Range Status 01/11/2023 8.4 4.0 - 6.0 % Final Comment: (NOTE) The [place] [employer] recommends the following Guidelines: 5.7-6.4% Indicates increased risk for diabetes (Prediabetes). >6.5% Diagnostic of diabetes. In the absence of unequivocal hyperglycemia, results should be confirmed by repeat test. <7% Glycemic recommendation for non adults with diabetes. [place] [employer], Standards of Medical Care in Diabetes, Volume 40; 2017 Debridement Procedure Note Site of debridement: Right foot Time out performed prior to treatment. Indication: Removal of nonviable tissue, fibrin, and exudates/slough Anesthesia: topical lidocaine per orders when needed Procedure: Excisional debridement was done using a scalpel and/or curette to remove the nonviable tissue and/or slough/exudates and fibrin after patient placed in a comfortable position. Nonexcisional debridement also done using 4x4 gauze and/or irrigation and/or cotton tip applicator. Level of Debridement: Subcutaneous Total area debrided (sqcm): 0.1 Response to procedure: satisfactory Complications: none Post debridement measurements done by RN and reviewed by myself Inocencio Mcfadden DPM [facility] documented in this [facility]09-07-2023 Miscellaneous Notes* Care Plan - Trini Boyce RN - 04/18/2023 1:15 PM EDT Progressing. documented in this encounterMemorial Health [id number] Note* Care Plan - Trini Boyce RN - 04/18/2023 1:15 PM EDT Progressing. [facility] [id number] Hospital Discharge instructions* Discharge Instructions * Trini Boyce RN - 04/17/2023 3:42 PM EDT You have been treated at [facility] for reasons of wound healing. WOUND CARE: With Dressing Changes - wash your hands prior to starting and after you finish and dispose of old materials properly. The following wound care procedure has been ordered for you in treating your wound: Wound location: Right plantar foot Cleanse with: saline/wound cleanser Apply to wound: collagen, silver alginate Secure with: bordered foam Change Dressing: M-W-F Wear diabetic shoe insert with additional C-felt padding whenever walking. Return: May 06, 2023 SPECIAL INSTRUCTIONS: Nutrition: Increase dietary protein intake as instructed. Foot Wear: Follow specialty footwear instructions as advised. Off loading/Pressure Reduce: PRECAUTIONS: If any of the following occur, contact [phone] immediately or go to your nearest emergency room!! Fever over 101 degrees Increase in drainage Redness around wound and/or streaking Odor or drainage Increase in pain Increased swelling Bleeding Need for compression bandage changes (slippage, breakthrough drainage) IF YOU ARE A DIABETIC: Gently dry well including between your toes Inspect feet/legs DAILY for skin problems, blisters, etc. Wear socks/stockings at all times Tell us if you need assistance putting on your socks or shoes Elevate your feet often, if swelling reaches your legs Wear compression garments as instructed Call us if you are sick, have a cold or flu HOME MEDICATIONS AT DISCHARGE Warning, if you take acetaminophen products: No more than 3Gms or 3000mg of acetaminophen (Tylenol)should be taken daily (eg. 6 extra-strength Tylenol). Be aware that multiple medications contain tylenol products(eg.vicodin, lortab, percocet, darvocet, and nonaspirin pain relievers). FUTURE VISIT INFORMATION: Call us if you are unable to come, leave a message if unable to speak to a staff member Every effort will be made to keep your scheduled appointment, occasionally [facility]. In that case we will reschedule your treatments as soon as possible. Your signature verifies that we have reviewed this document and that you understand the importance of the information above and acknowledge receipt of same. Failure to comply with these reminders mayresult in delay of your care and/or termination of treatment. If you have any questions, please call us at [phone] documented in this encounterMemorial Health [id number] History of Present illness Narrative* Estiven Mcfadden DPM - 04/04/2023 1:45 PM EDT [facility] [place] 04/04/2023 Patient Name: Hanna Nelson : 1940 AGE: [age] year old GENDER: Female Chief Complaint/Reason for Visit Hanna Nelson is a 81 year old female who presents today for wound care of chronic wound on the bottom of the right foot. Patient is tolerating added offloading to her shoes well Assessment/Dermatologic Exam/Plan Assessment -Right lower extremity ulceration down to subcutaneous tissue (Daniels grade 2) -Charcot foot deformity right foot -Type 2 diabetes mellitus with peripheral neuropathy -Abrasion right foot Plan -Patient was seen, evaluated, and treated today. -No signs of infection. Monitor off antibiotics. -Continue with diabetic shoe with offloading insert at all times while walking. -Added offloading appears to be doing well. Wound is smaller today. 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 -Any signs of infection before the next visit go to the emergency room -Follow-up 2 weeks for recheck Patient's Problem List Patient Active Problem List Diagnosis Essential hypertension Type 2 diabetes mellitus (HC CODE) Arthritis Hypothyroidism Palpitation Hyponatremia Spinal stenosis of lumbar region with neurogenic claudication Paroxysmal atrial fibrillation (HC CODE) Postoperative ileus (HC CODE) Paraparesis (HC CODE) Ataxia Cellulitis Peripheral vascular disease (HC CODE) Lower extremity ulceration, right, with fat layer exposed (HC CODE) Education regarding disease process, wound care, pressure relief and elevation discussed with patient today. Time spent with patient and patient care related issues in addition to coordination of patient's care with other physicians/agencies: Discharge Instructions were given to patient, significant other, caregiver, or DPOHC. Follow-up Current Wound Measurements: Wound Right Leg Medial Blister (bullae) (Active) Wound Right Foot Plantar (Active) Dressing Status / Change Moist with drainage 04/04/23 1300 Wound Bed Appearance Red 04/04/23 1300 Drainage Amount Moderate 04/04/23 1300 Drainage Appearance Serosanguineous 04/04/23 1300 Odor None 04/04/23 1300 Wound cleanser Body wash / periwash;Normal saline 04/04/23 1300 Advanced Wound Intervention Photos 03/21/23 1300 Wound length (cm) 0.4 cm 04/04/23 1400 Wound width (cm) 0.5 cm 04/04/23 1400 Wound depth (cm) 0.25 cm 04/04/23 1400 Wound Surface Area (length x width) 0.2 04/04/23 1400 Undermining / Tunneling No 03/07/23 1300 Periwound (surrounding) tissue Calloused;Macerated 04/04/23 1300 Primary Dressing Collagens;Alginate 03/21/23 1356 Secondary Dressing Foam Dressing-Silicone Boarder 03/21/23 1356 Wound Right Foot Lateral (Active) Dressing Status / Change Moist with drainage 04/04/23 1300 Wound Bed Appearance [place] 04/04/23 1300 Drainage Amount Small 04/04/23 1300 Drainage Appearance Serosanguineous 04/04/23 1300 Odor None 03/21/23 1300 Wound cleanser Body wash / periwash;Normal saline 04/04/23 1300 Advanced Wound Intervention Photos 03/21/23 1300 Wound length (cm) 0.2 cm 04/04/23 1400 Wound width (cm) 0.5 cm 04/04/23 1400 Wound depth (cm) 0.1 cm 04/04/23 1400 Wound Surface Area (length x width) 0.1 04/04/23 1400 Periwound (surrounding) tissue Calloused;Macerated 04/04/23 1300 Primary Dressing Band aids 03/21/23 1356 Pressure Ulcer Data:. Objective Vitals Signs: Visit Vitals OB Status Postmenopausal Smoking Status Former General Exam GENERAL: The patient is in no acute distress. RESP: Nonlabored breathing. No distress. Normal respirations. ABD: benign EXTREMITIES: No signs of infection to the right lower extremity Medications and Allergies No outpatient medications have been marked as taking for the 04/04/23 encounter (Hospital Encounter)with [facility] 3. Allergies Allergen Reactions Tape 1"X5yd [Adhesive Tape] Rash Redness. Avoids. Prefers paper tape Labs: WBC COUNT Date Value Ref Range Status 01/11/2023 7.3 3.5 - 10.9 K/uL Final HEMOGLOBIN Date Value Ref Range Status 01/11/2023 13.9 11.2 - 15.7 G/DL Final HEMATOCRIT Date Value Ref Range Status 01/11/2023 40.3 34.0 - 49.0 % Final PLATELET COUNT Date Value Ref Range Status 01/11/2023 252 140 - 400 K/uL Final SODIUM Date Value Ref Range Status 01/11/2023 141 135 - 148 MEQ/L Final 10/21/2020 135 135 - 148 MEQ/L POTASSIUM Date Value Ref Range Status 01/11/2023 4.7 3.4 - 5.3 MEQ/L Final CHLORIDE Date Value Ref Range Status 01/11/2023 103 96 - 110 MEQ/L Final CARBON DIOXIDE Date Value Ref Range Status 01/11/2023 24 19 - 32 MEQ/L Final GLUCOSE Date Value Ref Range Status 01/11/2023 207 70 - 99 MG/DL Final Comment: (NOTE) The [place] [employer] recommends the following guidelines: MG/DL <100 = NORMAL GLUCOSE 100-125= IMPAIRED FASTING GLUCOSE >=126 = PROVISIONAL DIAGNOSIS OF DIABETES ADA Workgroup Report, Diabetic Care, volume 40August 2016 CREATININE Date Value Ref Range Status 01/11/2023 0.9 0.5 - 1.2 MG/DL Final BUN Date Value Ref Range Status 01/11/2023 28 3 - 29 MG/DL Final CALCIUM Date Value Ref Range Status 01/11/2023 10.3 8.5 - 10.5 MG/DL Final ALBUMIN, SERUM Date Value Ref Range Status 10/16/2020 2.9 3.5 - 5.2 GM/DL PROTHROMBIN TIME Date Value Ref Range Status 05/15/2019 13.0 11.7 - 13.9 SECONDS PARTIAL THROMBOPLASTIN TIME Date Value Ref Range Status 05/15/2019 23.3 24.5 - 35.2 SECONDS INR Date Value Ref Range Status 05/15/2019 1.0 0.9 - 1.1 Comment: MODERATE-INTENSITY WARFARIN THERAPY: 2.0-3.0 HIGHER-INTENSITY WARFARIN THERAPY: 3.0-4.0 HEMOGLOBIN A1C Date Value Ref Range Status 01/11/2023 8.4 4.0 - 6.0 % Final Comment: (NOTE) The [place] [employer] recommends the following Guidelines: 5.7-6.4% Indicates increased risk for diabetes (Prediabetes). >6.5% Diagnostic of diabetes. In the absence of unequivocal hyperglycemia, results should be confirmed by repeat test. <7% Glycemic recommendation for non adults with diabetes. [place] [employer], Standards of Medical Care in Diabetes, Volume 40; 2017 Debridement Procedure Note Site of debridement: Right foot Time out performed prior to treatment. Indication: Removal of nonviable tissue, fibrin, and exudates/slough Anesthesia: topical lidocaine per orders when needed Procedure: Excisional debridement was done using a scalpel and/or curette to remove the nonviable tissue and/or slough/exudates and fibrin after patient placed in a comfortable position. Nonexcisional debridement also done using 4x4 gauze and/or irrigation and/or cotton tip applicator. Level of Debridement: Subcutaneous Total area debrided (sqcm): 0.3 Response to procedure: satisfactory Complications: none Post debridement measurements done by RN and reviewed by myself Inocencio Mcfadden DPM [facility] documented in this encounterMemorial Health [id number] Miscellaneous Notes* Care Plan - Trini Boyce RN - 04/04/2023 1:45 PM EDT Progressing. documented in this encounterMemorial Health [id number] Note* Care Plan - Trini Boyce RN - 04/04/2023 1:45 PM EDT Progressing. [facility] [id number] Nurse Note* Trini Boyce RN - 04/04/2023 1:45 PM EDT [facility] [address] [place] [address] ~ Physician Orders Patient Name: Hanna Nelson Start Date: 04/04/2023 Order: [facility] 1. Clean wound(s) with: normal saline 2. Apply to wound(s): Primary: collagen :Ssecondary - silver alginate 3. Secure dressing with: Optifoam Gentle SA 4x4 border foam 4. Change:3/wk 5. Call with any questions or concerns, thank you! Return in 1 week Physician NPI and Signature: Dr. Estiven Mcfadden, DPM NPI# [id number] [facility]: [facility] [id number] Nurse Note* Trini Boyce RN - 04/04/2023 1:45 PM EDT [facility] [address] [id number] ~ Physician Orders Patient Name: Hanna Nelson Start Date: 04/04/2023 Order: [facility] 1. Clean wound(s) with: normal saline 2. Apply to wound(s): Primary: collagen :Ssecondary - silver alginate 3. Secure dressing with: Optifoam Gentle SA 4x4 border foam 4. Change:3/wk 5. Call with any questions or concerns, thank you! Return in 1 week Physician NPI and Signature: Dr. Estiven Mcfadden DPM NPI# [id number] [facility] Care/ECF: documented in this encounterMemorial Health [id number] Hospital Discharge instructions* Discharge Instructions* Trini Boyce RN - 04/03/2023 2:03 PM EDT You have been treated at [facility] for reasons of wound healing. WOUND CARE: With Dressing Changes - wash your hands prior to starting and after you finish and dispose of old materials properly. The following wound care procedure has been ordered for you in treating your wound: Wound location: Right plantar foot Cleanse with: saline/wound cleanser Apply to wound: collagen, silver alginate Secure with: bordered foam Change Dressing: M-W-F Wear diabetic shoe insert with additional C-felt padding whenever walking. Return: 2 weeks SPECIAL INSTRUCTIONS: Nutrition: Increase dietary protein intake as instructed. Foot Wear: Follow specialty footwear instructions as advised. Off loading/Pressure Reduce: PRECAUTIONS: If any of the following occur, contact [phone] immediately or go to your nearest emergency room!! Fever over 101 degrees Increase in drainage Redness around wound and/or streaking Odor or drainage Increase in pain Increased swelling Bleeding Need for compression bandage changes (slippage, breakthrough drainage) IF YOU ARE A DIABETIC: Gently dry well including between your toes Inspect feet/legs DAILY for skin problems, blisters, etc. Wear socks/stockings at all times Tell us if you need assistance putting on your socks or shoes Elevate your feet often, if swelling reaches your legs Wear compression garments as instructed Call us if you are sick, have a cold or flu HOME MEDICATIONS AT DISCHARGE Warning, if you take acetaminophen products: No more than 3Gms or 3000mg of acetaminophen (Tylenol)should be taken daily (eg. 6 extra-strength Tylenol). Be aware that multiple medications contain tylenol products(eg.vicodin, lortab, percocet, darvocet, and nonaspirin pain relievers). FUTURE VISIT INFORMATION: Call us if you are unable to come, leave a message if unable to speak to a staff member Every effort will be made to keep your scheduled appointment, [facility] In that case we will reschedule your treatments as soon as possible. Your signature verifies that we have reviewed this document and that you understand the importance of the information above and acknowledge receipt of same. Failure to comply with these reminders mayresult in delay of your care and/or termination of treatment. If you have any questions, please call us at [phone] documented in this encounterMemorial Health [id number] History of Present illness Narrative* Estiven Mcfadden DPM - 03/21/2023 1:45 PM EDT [facility] 03/21/2023 Patient Name: Hanna Nelson : 1940 AGE: [age] year old GENDER: Female Chief Complaint/Reason for Visit Hanna Nelson is a 81 year old female who presents today for wound care of chronic wound on the bottom of the right foot. Patient has a little abrasion from the tape tearing off some of the skin on the bottom of her right foot. No pain or concerns with this Assessment/Dermatologic Exam/Plan Assessment -Right lower extremity ulceration down to subcutaneous tissue (Daniels grade 2) -Charcot foot deformity right foot -Type 2 diabetes mellitus with peripheral neuropathy -Abrasion right foot Plan -Patient was seen, evaluated, and treated today. -No signs of infection. Monitor off antibiotics. -Continue with diabetic shoe with offloading insert at all times while walking. -I added further offloading to the patient's custom insert today. 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 -Any signs of infection before the next visit go to the emergency room -Follow-up 2 weeks for recheck Patient's Problem List Patient Active Problem List Diagnosis Essential hypertension Type 2 diabetes mellitus (HC CODE) Arthritis Hypothyroidism Palpitation Hyponatremia Spinal stenosis of lumbar region with neurogenic claudication Paroxysmal atrial fibrillation (HC CODE) Postoperative ileus (HC CODE) Paraparesis (HC CODE) Ataxia Cellulitis Peripheral vascular disease (HC CODE) Lower extremity ulceration, right, with fat layer exposed (HC CODE) Education regarding disease process, wound care, pressure relief and elevation discussed with patient today. Time spent with patient and patient care related issues in addition to coordination of patient's care with other physicians/agencies: Discharge Instructions were given to patient, significant other, caregiver, or DPOHC. Follow-up Current Wound Measurements: Wound Right Leg Medial Blister (bullae) (Active) Wound Right Foot Plantar (Active) Dressing Status / Change Moist with drainage 03/21/23 1300 Wound Bed Appearance Red 03/21/23 1300 Drainage Amount Moderate 03/21/23 1300 Drainage Appearance Red brown 03/21/23 1300 Odor None 03/21/23 1300 Wound cleanser Normal saline 03/21/23 1300 Advanced Wound Intervention Photos 03/21/23 1300 Wound length (cm) 0.4 cm 03/21/23 1356 Wound width (cm) 0.4 cm 03/21/23 135 Wound depth (cm) 0.15 cm 03/21/23 135 Wound Surface Area (length x width) 0.16 03/21/23 1356 Undermining / Tunneling No 03/07/23 1300 Periwound (surrounding) tissue Calloused 03/21/23 1300 Primary Dressing Collagens;Alginate 03/21/23 135 Secondary Dressing Foam Dressing-Silicone Boarder 03/21/23 135 Wound Right Foot Lateral (Active) Dressing Status / Change Moist with drainage 03/21/23 1300 Wound Bed Appearance Red 03/21/23 1300 Drainage Amount Moderate 03/21/23 1300 Drainage Appearance Bloody 03/21/23 1300 Odor None 03/21/23 1300 Wound cleanser Normal saline 03/21/23 1300 Advanced Wound Intervention Photos 03/21/23 1300 Wound length (cm) 0.3 cm 03/21/23 1300 Wound width (cm) 0.8 cm 03/21/23 1300 Wound depth (cm) 0.05 cm 03/21/23 1300 Wound Surface Area (length x width) 0.24 03/21/23 1300 Primary Dressing Band aids 03/21/23 135 Pressure Ulcer Data:. Objective Vitals Signs: Visit Vitals BP 152/79 Pulse 81 Temp 96.2 F (35.7 C) Resp 16 OB Status Postmenopausal Smoking Status Former General Exam GENERAL: The patient is in no acute distress. RESP: Nonlabored breathing. No distress. Normal respirations. ABD: benign EXTREMITIES: No signs of infection to the right lower extremity Medications and Allergies No outpatient medications have been marked as taking for the 03/21/23 encounter (Hospital Encounter)with [facility] 3. Allergies Allergen Reactions Tape 1"X5yd [Adhesive Tape] Rash Redness. Avoids. Prefers paper tape Labs: WBC COUNT Date Value Ref Range Status 01/11/2023 7.3 3.5 - 10.9 K/uL Final HEMOGLOBIN Date Value Ref Range Status 01/11/2023 13.9 11.2 - 15.7 G/DL Final HEMATOCRIT Date Value Ref Range Status 01/11/2023 40.3 34.0 - 49.0 % Final PLATELET COUNT Date Value Ref Range Status 01/11/2023 252 140 - 400 K/uL Final SODIUM Date Value Ref Range Status 01/11/2023 141 135 - 148 MEQ/L Final 10/21/2020 135 135 - 148 MEQ/L POTASSIUM Date Value Ref Range Status 01/11/2023 4.7 3.4 - 5.3 MEQ/L Final CHLORIDE Date Value Ref Range Status 01/11/2023 103 96 - 110 MEQ/L Final CARBON DIOXIDE Date Value Ref Range Status 01/11/2023 24 19 - 32 MEQ/L Final GLUCOSE Date Value Ref Range Status 01/11/2023 207 70 - 99 MG/DL Final Comment: (NOTE) The [place] [employer] recommends the following guidelines: MG/DL <100 = NORMAL GLUCOSE 100-125= IMPAIRED FASTING GLUCOSE >=126 = PROVISIONAL DIAGNOSIS OF DIABETES ADA Workgroup Report, Diabetic Care, volume 40August 2016 CREATININE Date Value Ref Range Status 01/11/2023 0.9 0.5 - 1.2 MG/DL Final BUN Date Value Ref Range Status 01/11/2023 28 3 - 29 MG/DL Final CALCIUM Date Value Ref Range Status 01/11/2023 10.3 8.5 - 10.5 MG/DL Final ALBUMIN, SERUM Date Value Ref Range Status 10/16/2020 2.9 3.5 - 5.2 GM/DL PROTHROMBIN TIME Date Value Ref Range Status 05/15/2019 13.0 11.7 - 13.9 SECONDS PARTIAL THROMBOPLASTIN TIME Date Value Ref Range Status 05/15/2019 23.3 24.5 - 35.2 SECONDS INR Date Value Ref Range Status 05/15/2019 1.0 0.9 - 1.1 Comment: MODERATE-INTENSITY WARFARIN THERAPY: 2.0-3.0 HIGHER-INTENSITY WARFARIN THERAPY: 3.0-4.0 HEMOGLOBIN A1C Date Value Ref Range Status 01/11/2023 8.4 4.0 - 6.0 % Final Comment: (NOTE) The [place] [employer] recommends the following Guidelines: 5.7-6.4% Indicates increased risk for diabetes (Prediabetes). >6.5% Diagnostic of diabetes. In the absence of unequivocal hyperglycemia, results should be confirmed by repeat test. <7% Glycemic recommendation for non adults with diabetes. [place] [employer], Standards of Medical Care in Diabetes, Volume 40; 2017 Debridement Procedure Note Site of debridement: Right foot Time out performed prior to treatment. Indication: Removal of nonviable tissue, fibrin, and exudates/slough Anesthesia: topical lidocaine per orders when needed Procedure: Excisional debridement was done using a scalpel and/or curette to remove the nonviable tissue and/or slough/exudates and fibrin after patient placed in a comfortable position. Nonexcisional debridement also done using 4x4 gauze and/or irrigation and/or cotton tip applicator. Level of Debridement: Subcutaneous Total area debrided (sqcm): 0.4 Response to procedure: satisfactory Complications: none Post debridement measurements done by RN and reviewed by myself Inocencio Mcfadden DPM [facility] documented in this encounterMemorial Health [id number] Miscellaneous Notes* Care Plan - Trini Boyce RN - 03/21/2023 1:45 PM EDT Progressing. Continue current POC. documented in this encounterMemorial Health [id number] Note* Care Plan - Trini Boyce RN - 03/21/2023 1:45 PM EDT Progressing. Continue current POC. [facility] [id number] Hospital Discharge instructions* Discharge Instructions * Trini Boyce RN - 03/20/2023 9:43 AM EDT You have been treated at [facility] for reasons of wound healing. WOUND CARE: With Dressing Changes - wash your hands prior to starting and after you finish and dispose of old materials properly. The following wound care procedure has been ordered for you in treating your wound: Wound location: Right plantar foot Cleanse with: saline/wound cleanser Apply to wound: collagen, silver alginate Secure with: bordered foam Change Dressing: daily Wear diabetic shoe insert with additional C-felt padding whenever walking. Return: 2 weeks SPECIAL INSTRUCTIONS: Nutrition: Increase dietary protein intake as instructed. Foot Wear: Follow specialty footwear instructions as advised. Off loading/Pressure Reduce: PRECAUTIONS: If any of the following occur, contact [phone] immediately or go to your nearest emergency room!! Fever over 101 degrees Increase in drainage Redness around wound and/or streaking Odor or drainage Increase in pain Increased swelling Bleeding Need for compression bandage changes (slippage, breakthrough drainage) IF YOU ARE A DIABETIC: Gently dry well including between your toes Inspect feet/legs DAILY for skin problems, blisters, etc. Wear socks/stockings at all times Tell us if you need assistance putting on your socks or shoes Elevate your feet often, if swelling reaches your legs Wear compression garments as instructed Call us if you are sick, have a cold or flu HOME MEDICATIONS AT DISCHARGE Warning, if you take acetaminophen products: No more than 3Gms or 3000mg of acetaminophen (Tylenol)should be taken daily (eg. 6 extra-strength Tylenol). Be aware that multiple medications contain tylenol products(eg.vicodin, lortab, percocet, darvocet, and nonaspirin pain relievers). FUTURE VISIT INFORMATION: Call us if you are unable to come, leave a message if unable to speak to a staff member Every effort will be made to keep your scheduled appointment, [facility] In that case we will reschedule your treatments as soon as possible. Your signature verifies that we have reviewed this document and that you understand the importance of the information above and acknowledge receipt of same. Failure to comply with these reminders mayresult in delay of your care and/or termination of treatment. If you have any questions, please call us at [phone] documented in this encounterMemorial Health [id number] Hospital Discharge instructions* Discharge Instructions* Trini Boyce RN - 03/07/2023 1:54 PM EDT You have been treated at [facility] for reasons of wound healing. WOUND CARE: With Dressing Changes - wash your hands prior to starting and after you finish and dispose of old materials properly. The following wound care procedure has been ordered for you in treating your wound: Wound location: Right plantar foot Cleanse with: saline/wound cleanser Apply to wound: collagen, silver alginate Secure with: bordered foam Change Dressing: daily Wear diabetic shoe insert with additional C-felt padding whenever walking. Return: 2 weeks SPECIAL INSTRUCTIONS: Nutrition: Increase dietary protein intake as instructed. Foot Wear: Follow specialty footwear instructions as advised. Off loading/Pressure Reduce: PRECAUTIONS: If any of the following occur, contact [phone] immediately or go to your nearest emergency room!! Fever over 101 degrees Increase in drainage Redness around wound and/or streaking Odor or drainage Increase in pain Increased swelling Bleeding Need for compression bandage changes (slippage, breakthrough drainage) IF YOU ARE A DIABETIC: Gently dry well including between your toes Inspect feet/legs DAILY for skin problems, blisters, etc. Wear socks/stockings at all times Tell us if you need assistance putting on your socks or shoes Elevate your feet often, if swelling reaches your legs Wear compression garments as instructed Call us if you are sick, have a cold or flu HOME MEDICATIONS AT DISCHARGE Warning, if you take acetaminophen products: No more than 3Gms or 3000mg of acetaminophen (Tylenol)should be taken daily (eg. 6 extra-strength Tylenol). Be aware that multiple medications contain tylenol products(eg.vicodin, lortab, percocet, darvocet, and nonaspirin pain relievers). FUTURE VISIT INFORMATION: Call us if you are unable to come, leave a message if unable to speak to a staff member Every effort will be made to keep your scheduled appointment, occasionally [facility]. In that case we will reschedule your treatments as soon as possible. Your signature verifies that we have reviewed this document and that you understand the importance of the information above and acknowledge receipt of same. Failure to comply with these reminders mayresult in delay of your care and/or termination of treatment. If you have any questions, please call us at [phone] documented in this encounterMemorial Health [id number] History of Present illness Narrative* McfaddenEstiven DPM - 03/07/2023 1:45 PM EDT [facility] 03/07/2023 Patient Name: Hanna Nelson : 1940 AGE: [age] year old GENDER: Female Chief Complaint/Reason for Visit Hanna Nelson is a 81 year old female who presents today for wound care of chronic wound on the bottom of the right foot. No new concerns today. Assessment/Dermatologic Exam/Plan Assessment -Right lower extremity ulceration down to subcutaneous tissue (Daniels grade 2) -Charcot foot deformity right foot -Type 2 diabetes mellitus with peripheral neuropathy Plan -Patient was seen, evaluated, and treated today. -No signs of infection. Monitor off antibiotics. -Continue with diabetic shoe with offloading insert at all times while walking. We will consider adding more padding on the next visit or sending her back for more formal modification of her insert if not seeing much improvement on the next visit -Continue with local wound care to the area. -Any signs of infection before the next visit go to the emergency room -Follow-up 2 weeks for recheck Patient's Problem List Patient Active Problem List Diagnosis Essential hypertension Type 2 diabetes mellitus (HC CODE) Arthritis Hypothyroidism Palpitation Hyponatremia Spinal stenosis of lumbar region with neurogenic claudication Paroxysmal atrial fibrillation (HC CODE) Postoperative ileus (HC CODE) Paraparesis (HC CODE) Ataxia Cellulitis Peripheral vascular disease (HC CODE) Lower extremity ulceration, right, with fat layer exposed (HC CODE) Education regarding disease process, wound care, pressure relief and elevation discussed with patient today. Time spent with patient and patient care related issues in addition to coordination of patient's care with other physicians/agencies: Discharge Instructions were given to patient, significant other, caregiver, or DPOHC. Follow-up Current Wound Measurements: Wound Right Leg Medial Blister (bullae) (Active) Wound Right Foot Plantar (Active) Dressing Status / Change Moist with drainage 03/07/23 1300 Wound Bed Appearance Red 03/07/23 1300 Drainage Amount Moderate 03/07/23 1300 Drainage Appearance Red brown 03/07/23 1300 Odor None 03/07/23 1300 Wound cleanser Normal saline 03/07/23 1300 Advanced Wound Intervention Photos 02/21/23 1300 Wound length (cm) 0.4 cm 03/07/23 1354 Wound width (cm) 0.5 cm 03/07/23 135 Wound depth (cm) 0.15 cm 03/07/23 135 Wound Surface Area (length x width) 0.2 03/07/23 135 Undermining / Tunneling No 03/07/23 1300 Periwound (surrounding) tissue Calloused 03/07/23 1300 Primary Dressing Collagens;Alginate 03/07/23 135 Secondary Dressing Other (Comment);Foam Dressing-Silicone Boarder 03/07/23 135 Pressure Ulcer Data:. Objective Vitals Signs: Visit Vitals BP 130/77 Pulse 101 Temp 97.8 F (36.6 C) Resp 16 OB Status Postmenopausal Smoking Status Former General Exam GENERAL: The patient is in no acute distress. RESP: Nonlabored breathing. No distress. Normal respirations. ABD: benign EXTREMITIES: No signs of infection to the right lower extremity Medications and Allergies No outpatient medications have been marked as taking for the 03/07/23 encounter (Hospital Encounter)with [facility] 3. Allergies Allergen Reactions Tape 1"X5yd [Adhesive Tape] Rash Redness. Avoids. Prefers paper tape Labs: WBC COUNT Date Value Ref Range Status 01/11/2023 7.3 3.5 - 10.9 K/uL Final HEMOGLOBIN Date Value Ref Range Status 01/11/2023 13.9 11.2 - 15.7 G/DL Final HEMATOCRIT Date Value Ref Range Status 01/11/2023 40.3 34.0 - 49.0 % Final PLATELET COUNT Date Value Ref Range Status 01/11/2023 252 140 - 400 K/uL Final SODIUM Date Value Ref Range Status 01/11/2023 141 135 - 148 MEQ/L Final 10/21/2020 135 135 - 148 MEQ/L POTASSIUM Date Value Ref Range Status 01/11/2023 4.7 3.4 - 5.3 MEQ/L Final CHLORIDE Date Value Ref Range Status 01/11/2023 103 96 - 110 MEQ/L Final CARBON DIOXIDE Date Value Ref Range Status 01/11/2023 24 19 - 32 MEQ/L Final GLUCOSE Date Value Ref Range Status 01/11/2023 207 70 - 99 MG/DL Final Comment: (NOTE) The [place] [employer] recommends the following guidelines: MG/DL <100 = NORMAL GLUCOSE 100-125= IMPAIRED FASTING GLUCOSE >=126 = PROVISIONAL DIAGNOSIS OF DIABETES ADA Workgroup Report, Diabetic Care, volume 40August 2016 CREATININE Date Value Ref Range Status 01/11/2023 0.9 0.5 - 1.2 MG/DL Final BUN Date Value Ref Range Status 01/11/2023 28 3 - 29 MG/DL Final CALCIUM Date Value Ref Range Status 01/11/2023 10.3 8.5 - 10.5 MG/DL Final ALBUMIN, SERUM Date Value Ref Range Status 10/16/2020 2.9 3.5 - 5.2 GM/DL PROTHROMBIN TIME Date Value Ref Range Status 05/15/2019 13.0 11.7 - 13.9 SECONDS PARTIAL THROMBOPLASTIN TIME Date Value Ref Range Status 05/15/2019 23.3 24.5 - 35.2 SECONDS INR Date Value Ref Range Status 05/15/2019 1.0 0.9 - 1.1 Comment: MODERATE-INTENSITY WARFARIN THERAPY: 2.0-3.0 HIGHER-INTENSITY WARFARIN THERAPY: 3.0-4.0 HEMOGLOBIN A1C Date Value Ref Range Status 01/11/2023 8.4 4.0 - 6.0 % Final Comment: (NOTE) The [place] [employer] recommends the following Guidelines: 5.7-6.4% Indicates increased risk for diabetes (Prediabetes). >6.5% Diagnostic of diabetes. In the absence of unequivocal hyperglycemia, results should be confirmed by repeat test. <7% Glycemic recommendation for non adults with diabetes. [place] [employer], Standards of Medical Care in Diabetes, Volume 40; 2017 Debridement Procedure Note Site of debridement: Right foot Time out performed prior to treatment. Indication: Removal of nonviable tissue, fibrin, and exudates/slough Anesthesia: topical lidocaine per orders when needed Procedure: Excisional debridement was done using a scalpel and/or curette to remove the nonviable tissue and/or slough/exudates and fibrin after patient placed in a comfortable position. Nonexcisional debridement also done using 4x4 gauze and/or irrigation and/or cotton tip applicator. Level of Debridement: Subcutaneous Total area debrided (sqcm): 0.2 Response to procedure: satisfactory Complications: none Post debridement measurements done by RN and reviewed by myself Inocencio Mcfadden DPM [facility] documented in this encounterMemorial Health [id number] History of Present illness Narrative* Estiven Mcfadden DPM - 02/01/2022 3:00 PM EDT [facility] 02/01/2022 Patient Name: Hanna Nelson : 1940 AGE: [age] year old GENDER: Female Chief Complaint/Reason for Visit Hanna Nelson is a 81 year old female who presents today for wound care of chronic wound on the bottom of the right foot. Believes that the wound is healed. Still has not obtained diabetic shoes yet. Still in the process of doing this. Assessment/Dermatologic Exam/Plan Assessment -Right lower extremity ulceration down to subcutaneous tissue (Daniels grade 2) -Type 2 diabetes mellitus with peripheral neuropathy Plan -Patient was seen, evaluated, and treated today. -No signs of infection. Monitor off antibiotics. -Wounds of first metatarsal head right foot has healed -Patient still in the process of getting diabetic shoes -Stressed importance of continuing to follow-up with this and follow through to obtain his custom shoes to offload the area to prevent wound formation moving forward -Continue with offloading shoe with peg assist at this time until she gets her shoes -If wounds reappear to call the office for reappointment -Follow-up as needed Patient's Problem List Patient Active Problem List Diagnosis Essential hypertension Type 2 diabetes mellitus (HC CODE) Arthritis Hypothyroidism Palpitation Hyponatremia Spinal stenosis of lumbar region with neurogenic claudication Paroxysmal atrial fibrillation (HC CODE) Postoperative ileus (HC CODE) Paraparesis (HC CODE) Ataxia Cellulitis Peripheral vascular disease (HC CODE) Lower extremity ulceration, right, with fat layer exposed (HC CODE) Education regarding disease process, wound care, pressure relief and elevation discussed with patient today. Time spent with patient and patient care related issues in addition to coordination of patient's care with other physicians/agencies: Discharge Instructions were given to patient, significant other, caregiver, or DPOHC. Follow-up Current Wound Measurements: Wound Right Leg Medial Blister (bullae) (Active) Wound Right Foot Plantar Diabetic ulcer (neuropathic) (Active) Dressing Status / Change Dry & Intact 02/01/22 1500 Wound Bed Appearance Epithelial 02/01/22 1500 Drainage Amount None 02/01/22 1500 Drainage Appearance Red brown 01/11/22 1400 Odor None 01/11/22 1400 Wound cleanser Normal saline 01/11/22 1400 Specific Procedures Cultures 06/22/21 1000 Advanced Wound Intervention Photos 02/01/22 1500 Wound length (cm) 0 cm 02/01/22 1500 Wound width (cm) 0 cm 02/01/22 1500 Wound depth (cm) 0 cm 02/01/22 1500 Wound Surface Area (length x width) 0 02/01/22 1500 Undermining / Tunneling Yes 08/17/21 1000 Periwound (surrounding) tissue Calloused 01/11/22 1400 Topical Agents Zinc oxide 08/17/21 1044 Primary Dressing Alginate;Absorptive 12/22/21 1039 Secondary Dressing Other (Comment);Elastic bandage 12/22/21 1039 Pressure Ulcer Data:. Objective Vitals Signs: Visit Vitals BP 145/73 Pulse 74 Temp 97.5 F (36.4 C) Resp 18 OB Status Postmenopausal Smoking Status Former Smoker General Exam GENERAL: The patient is in no acute distress. RESP: Nonlabored breathing. No distress. Normal respirations. ABD: benign EXTREMITIES: No signs of infection to the right lower extremity Medications and Allergies No outpatient medications have been marked as taking for the 02/01/22 encounter (Hospital Encounter)with [facility] 1. Allergies Allergen Reactions Tape 1"X5yd [Adhesive Tape] Rash Redness. Avoids. Prefers paper tape Labs: WBC COUNT Date Value Ref Range Status 12/29/2021 7.6 3.5 - 10.9 K/uL Final HEMOGLOBIN Date Value Ref Range Status 12/29/2021 12.9 11.2 - 15.7 G/DL Final HEMATOCRIT Date Value Ref Range Status 12/29/2021 38.0 34.0 - 49.0 % Final PLATELET COUNT Date Value Ref Range Status 12/29/2021 226 140 - 400 K/uL Final SODIUM Date Value Ref Range Status 12/29/2021 139 135 - 148 MEQ/L Final 10/21/2020 135 135 - 148 MEQ/L POTASSIUM Date Value Ref Range Status 12/29/2021 5.6 3.4 - 5.3 MEQ/L Final CHLORIDE Date Value Ref Range Status 12/29/2021 103 96 - 110 MEQ/L Final CARBON DIOXIDE Date Value Ref Range Status 12/29/2021 25 19 - 32 MEQ/L Final GLUCOSE Date Value Ref Range Status 12/29/2021 201 70 - 99 MG/DL Final Comment: (NOTE) The [place] [employer] recommends the following guidelines: MG/DL <100 = NORMAL GLUCOSE 100-125= IMPAIRED FASTING GLUCOSE >=126 = PROVISIONAL DIAGNOSIS OF DIABETES ADA Workgroup Report, Diabetic Care, volume 40August 2016 CREATININE Date Value Ref Range Status 12/29/2021 1.0 0.5 - 1.2 MG/DL Final BUN Date Value Ref Range Status 12/29/2021 39 3 - 29 MG/DL Final CALCIUM Date Value Ref Range Status 12/29/2021 10.2 8.5 - 10.5 MG/DL Final ALBUMIN, SERUM Date Value Ref Range Status 10/16/2020 2.9 3.5 - 5.2 GM/DL PROTHROMBIN TIME Date Value Ref Range Status 05/15/2019 13.0 11.7 - 13.9 SECONDS PARTIAL THROMBOPLASTIN TIME Date Value Ref Range Status 05/15/2019 23.3 24.5 - 35.2 SECONDS INR Date Value Ref Range Status 05/15/2019 1.0 0.9 - 1.1 Comment: MODERATE-INTENSITY WARFARIN THERAPY: 2.0-3.0 HIGHER-INTENSITY WARFARIN THERAPY: 3.0-4.0 HEMOGLOBIN A1C Date Value Ref Range Status 12/29/2021 7.3 4.0 - 6.0 % Final Comment: (NOTE) The [place] [employer] recommends the following Guidelines: 5.7-6.4% Indicates increased risk for diabetes (Prediabetes). >6.5% Diagnostic of diabetes. In the absence of unequivocal hyperglycemia, results should be confirmed by repeat test. <7% Glycemic recommendation for non adults with diabetes. [place] [employer], Standards of Medical Care in Diabetes, Volume 40; 2017 The patient's condition and plan of care have been explained to the patient and/or significant others. This explanation included risks and benefits, alternative forms of treatment and risk of non-treatment. Patient understands there is no guarantee or warranty as to results or cures. Patient and/or significant others or caregivers agree with the plan of care and demonstrate an understanding of their responsibilities as a member of their plan of care. Patient has been instructed to contact the Wound Care Center with any concerns that arise before their next visit. Inocencio Mcfadden DPM [facility] documented in this encounterMemorial Health [id number] Hospital Discharge instructions* Discharge Instructions* Trini Boyce RN - 02/01/2022 10:41 AM EDT CONGRATULATIONS, YOUR WOUND IS HEALED! 1. Check your skin daily for reddened areas, abrasions, or sores. If a new wound is noted call, please call the wound clinic at [phone] for an appointment. 2. Clean and dry your skin, using mild soap and warm water (not hot) daily. 3. If your skin appears dry apply lotion daily. 4. The newly healed skin will be tender and fragile for several weeks. Please pad and protect this area and avoid re-injury. 5. Wear well fitting shoes and white socks. 6. Resume your ordinary activities as tolerated. 7. Maintain a nutritious diet avoiding alcohol, caffeine, and smoking. 8. Return to your primary care physician for all of your health issues and medications. 9. For leg wounds, continue to use compression stockings and keep your legs elevated above the level of the heart as directed in the Wound Care Center. 10. Replace compression stockings every six months to ensure proper fit. SPECIAL INSTRUCTIONS: Nutrition: Increase dietary protein intake as instructed. Foot Wear: Follow specialty footwear instructions as advised. Off loading/Pressure Reduce: PRECAUTIONS: If any of the following occur, contact [phone] immediately or go to your nearest emergency room!! Fever over 101 degrees Increase in drainage Redness around wound and/or streaking Odor or drainage Increase in pain Increased swelling Bleeding Need for compression bandage changes (slippage, breakthrough drainage) IF YOU ARE A DIABETIC: Gently dry well including between your toes Inspect feet/legs DAILY for skin problems, blisters, etc. Wear socks/stockings at all times Tell us if you need assistance putting on your socks or shoes Elevate your feet often, if swelling reaches your legs Wear compression garments as instructed Call us if you are sick, have a cold or flu HOME MEDICATIONS AT DISCHARGE Warning, if you take acetaminophen products: No more than 3Gms or 3000mg of acetaminophen (Tylenol)should be taken daily (eg. 6 extra-strength Tylenol). Be aware that multiple medications contain tylenol products(eg.vicodin, lortab, percocet, darvocet, and nonaspirin pain relievers). FUTURE VISIT INFORMATION: Call us if you are unable to come, leave a message if unable to speak to a staff member Every effort will be made to keep your scheduled appointment, [facility] In that case we will reschedule your treatments as soon as possible. Your signature verifies that we have reviewed this document and that you understand the importance of the information above and acknowledge receipt of same. Failure to comply with these reminders mayresult in delay of your care and/or termination of treatment. If you have any questions, please call us at [phone] documented in this encounterMemorial Health [id number] History of Present illness Narrative* Estiven Mcfadden DPM - 01/11/2022 3:00 PM EDT [facility] 01/11/2022 Patient Name: Hanna Nelson : 1940 AGE: [age] year old GENDER: Female Chief Complaint/Reason for Visit Hanna Nelson is a 81 year old female who presents today for wound care of chronic wound on the bottom of the right foot. Says that the wound is doing well overall. Still in process of getting diabetic shoes from outside clothing trades workers. Assessment/Dermatologic Exam/Plan Assessment -Right lower extremity ulceration down to subcutaneous tissue (Daniels grade 2) -Type 2 diabetes mellitus with peripheral neuropathy Plan -Patient was seen, evaluated, and treated today. -No signs of infection. Monitor off antibiotics. -Wound subfirst metatarsal continues to show signs of improvement. -Collagen and dry dressing to the area 3 times a week -Offloading shoe with peg assist -Continue to follow-up with outpatient clothing trades workers to obtain custom diabetic shoes to offload the area and prevent wound formation in the future -Any signs of infection before I see her again to go to the emergency room -Follow-up 2 weeks for recheck Patient's Problem List Patient Active Problem List Diagnosis Essential hypertension Type 2 diabetes mellitus (HC CODE) Arthritis Hypothyroidism Palpitation Hyponatremia Spinal stenosis of lumbar region with neurogenic claudication Paroxysmal atrial fibrillation (HC CODE) Postoperative ileus (HC CODE) Paraparesis (HC CODE) Ataxia Cellulitis Peripheral vascular disease (HC CODE) Lower extremity ulceration, right, with fat layer exposed (HC CODE) Education regarding disease process, wound care, pressure relief and elevation discussed with patient today. Time spent with patient and patient care related issues in addition to coordination of patient's care with other physicians/agencies: Discharge Instructions were given to patient, significant other, caregiver, or DPOHC. Follow-up Current Wound Measurements: Wound Right Leg Medial Blister (bullae) (Active) Wound Right Foot Plantar Diabetic ulcer (neuropathic) (Active) Dressing Status / Change Moist with drainage 01/11/22 1400 Wound Bed Appearance [place] 01/11/22 1400 Drainage Amount Moderate 01/11/22 1400 Drainage Appearance Red brown 01/11/22 1400 Odor None 01/11/22 1400 Wound cleanser Normal saline 01/11/22 1400 Specific Procedures Cultures 06/22/21 1000 Advanced Wound Intervention Other (Comment) 12/22/21 1039 Wound length (cm) 0.2 cm 01/11/22 1500 Wound width (cm) 0.1 cm 01/11/22 1500 Wound depth (cm) 0.1 cm 01/11/22 1500 Wound Surface Area (length x width) 0.02 01/11/22 1500 Undermining / Tunneling Yes 08/17/21 1000 Periwound (surrounding) tissue Calloused 01/11/22 1400 Topical Agents Zinc oxide 08/17/21 1044 Primary Dressing Alginate;Absorptive 12/22/21 1039 Secondary Dressing Other (Comment);Elastic bandage 12/22/21 1039 Pressure Ulcer Data:. Objective Vitals Signs: Visit Vitals BP 139/67 Pulse 74 Temp 97.8 F (36.6 C) Resp 18 OB Status Postmenopausal Smoking Status Former Smoker General Exam GENERAL: The patient is in no acute distress. RESP: Nonlabored breathing. No distress. Normal respirations. ABD: benign EXTREMITIES: No signs of infection to the right lower extremity Medications and Allergies No outpatient medications have been marked as taking for the 01/11/22 encounter (Hospital Encounter) with [facility] 1. Allergies Allergen Reactions Tape 1"X5yd [Adhesive Tape] Rash Redness. Avoids. Prefers paper tape Labs: WBC COUNT Date Value Ref Range Status 12/29/2021 7.6 3.5 - 10.9 K/uL Final HEMOGLOBIN Date Value Ref Range Status 12/29/2021 12.9 11.2 - 15.7 G/DL Final HEMATOCRIT Date Value Ref Range Status 12/29/2021 38.0 34.0 - 49.0 % Final PLATELET COUNT Date Value Ref Range Status 12/29/2021 226 140 - 400 K/uL Final SODIUM Date Value Ref Range Status 12/29/2021 139 135 - 148 MEQ/L Final 10/21/2020 135 135 - 148 MEQ/L POTASSIUM Date Value Ref Range Status 12/29/2021 5.6 3.4 - 5.3 MEQ/L Final CHLORIDE Date Value Ref Range Status 12/29/2021 103 96 - 110 MEQ/L Final CARBON DIOXIDE Date Value Ref Range Status 12/29/2021 25 19 - 32 MEQ/L Final GLUCOSE Date Value Ref Range Status 12/29/2021 201 70 - 99 MG/DL Final Comment: (NOTE) The [place] [employer] recommends the following guidelines: MG/DL <100 = NORMAL GLUCOSE 100-125= IMPAIRED FASTING GLUCOSE >=126 = PROVISIONAL DIAGNOSIS OF DIABETES ADA Workgroup Report, Diabetic Care, volume 40August 2016 CREATININE Date Value Ref Range Status 12/29/2021 1.0 0.5 - 1.2 MG/DL Final BUN Date Value Ref Range Status 12/29/2021 39 3 - 29 MG/DL Final CALCIUM Date Value Ref Range Status 12/29/2021 10.2 8.5 - 10.5 MG/DL Final ALBUMIN, SERUM Date Value Ref Range Status 10/16/2020 2.9 3.5 - 5.2 GM/DL PROTHROMBIN TIME Date Value Ref Range Status 05/15/2019 13.0 11.7 - 13.9 SECONDS PARTIAL THROMBOPLASTIN TIME Date Value Ref Range Status 05/15/2019 23.3 24.5 - 35.2 SECONDS INR Date Value Ref Range Status 05/15/2019 1.0 0.9 - 1.1 Comment: MODERATE-INTENSITY WARFARIN THERAPY: 2.0-3.0 HIGHER-INTENSITY WARFARIN THERAPY: 3.0-4.0 HEMOGLOBIN A1C Date Value Ref Range Status 12/29/2021 7.3 4.0 - 6.0 % Final Comment: (NOTE) The [place] [employer] recommends the following Guidelines: 5.7-6.4% Indicates increased risk for diabetes (Prediabetes). >6.5% Diagnostic of diabetes. In the absence of unequivocal hyperglycemia, results should be confirmed by repeat test. <7% Glycemic recommendation for non adults with diabetes. [place] [employer], Standards of Medical Care in Diabetes, Volume 40; 2017 Excisional Debridement Procedure Note Site of debridement: Subfirst metatarsal head right foot Time out performed prior to treatment. Indication: Removal of nonviable tissue, fibrin, and exudates/slough Anesthesia: topical lidocaine per orders when needed Procedure: Excisional debridement was done using a scalpel and/or curette to remove the nonviable tissue and/or slough/exudates and fibrin after patient placed in a comfortable position. Nonexcisional debridement also done using 4x4 gauze and/or irrigation and/or cotton tip applicator. Level of Debridement: Subcutaneous tissue Total area debrided (sqcm): 0.02 Response to procedure: satisfactory Complications: none Post debridement measurements done by RN and reviewed by myself The patient's condition and plan of care have been explained to the patient and/or significant others. This explanation included risks and benefits, alternative forms of treatment and risk of non-treatment. Patient understands there is no guarantee or warranty as to results or cures. Patient and/or significant others or caregivers agree with the plan of care and demonstrate an understanding of their responsibilities as a member of their plan of care. Patient has been instructed to contact the Wound Care Center with any concerns that arise before their next visit. Inocencio Mcfadden DPM [facility] documented in this encounterMemorial Health [id number] Hospital Discharge instructions* Discharge Instructions* Trini Boyce RN - 01/11/2022 8:55 AM EDT You have been treated at [facility] for reasons of wound healing. WOUND CARE: With Dressing Changes - wash your hands prior to starting and after you finish and dispose of old materials properly. The following wound care procedure has been ordered for you in treating your wound: Wound location: Right Plantar Foot Cleanse with: wound cleanser Zinc paste to periwound Apply to wound: collagen Ag, alginate, abd Secure with: kerlix, villa wrap Offloading: Impax diabetic shoe insole Change Dressinx/week Return: 3 weeks SPECIAL INSTRUCTIONS: Nutrition: Increase dietary protein intake as instructed. Foot Wear: Follow specialty footwear instructions as advised. Off loading/Pressure Reduce: PRECAUTIONS: If any of the following occur, contact [phone] immediately or go to your nearest emergency room!! Fever over 101 degrees Increase in drainage Redness around wound and/or streaking Odor or drainage Increase in pain Increased swelling Bleeding Need for compression bandage changes (slippage, breakthrough drainage) IF YOU ARE A DIABETIC: Gently dry well including between your toes Inspect feet/legs DAILY for skin problems, blisters, etc. Wear socks/stockings at all times Tell us if you need assistance putting on your socks or shoes Elevate your feet often, if swelling reaches your legs Wear compression garments as instructed Call us if you are sick, have a cold or flu HOME MEDICATIONS AT DISCHARGE Warning, if you take acetaminophen products: No more than 3Gms or 3000mg of acetaminophen (Tylenol)should be taken daily (eg. 6 extra-strength Tylenol). Be aware that multiple medications contain tylenol products(eg.vicodin, lortab, percocet, darvocet, and nonaspirin pain relievers). FUTURE VISIT INFORMATION: Call us if you are unable to come, leave a message if unable to speak to a staff member Every effort will be made to keep your scheduled appointment, occasionally patients admitted to the[facility] need priority care. In that case we will reschedule your treatments as soon as possible. Your signature verifies that we have reviewed this document and that you understand the importance of the information above and acknowledge receipt of same. Failure to comply with these reminders mayresult in delay of your care and/or termination of treatment. If you have any questions, please call us at [phone] documented in this encounterMemorial Health [id number] History of Present illness Narrative* Estiven Mcfadden DPM - 12/28/2021 3:00 PM EDT [facility] 12/28/2021 Patient Name: Hanna Nelson : 1940 AGE: [age] year old GENDER: Female Chief Complaint/Reason for Visit Hanna Nelson is a 81 year old female who presents today for wound care of chronic wound on the bottom of the right foot. Says that the wound is doing well overall. No new complaints. Still in process of getting diabetic shoes from outside clothing trades workers. Assessment/Dermatologic Exam/Plan Assessment -Right lower extremity ulceration down to subcutaneous tissue -Type 2 diabetes mellitus with peripheral neuropathy Plan -Patient was seen, evaluated, and treated today. -No signs of infection. Monitor off antibiotics. -Wound subfirst metatarsal much improved today from previous assessment. -Collagen and dry dressing to the area 3 times a week -Offloading shoe with peg assist -Continue to follow-up with outpatient clothing trades workers to obtain custom diabetic shoes to offload the area and prevent wound formation in the future -Any signs of infection before I see her again to go to the emergency room -Follow-up 2 weeks for recheck Patient's Problem List Patient Active Problem List Diagnosis Essential hypertension Type 2 diabetes mellitus (HC CODE) Arthritis Hypothyroidism Palpitation Hyponatremia Spinal stenosis of lumbar region with neurogenic claudication Paroxysmal atrial fibrillation (HC CODE) Postoperative ileus (HC CODE) Paraparesis (HC CODE) Ataxia Cellulitis Peripheral vascular disease (HC CODE) Lower extremity ulceration, right, with fat layer exposed (HC CODE) Education regarding disease process, wound care, pressure relief and elevation discussed with patient today. Time spent with patient and patient care related issues in addition to coordination of patient's care with other physicians/agencies: Discharge Instructions were given to patient, significant other, caregiver, or DPOHC. Follow-up Current Wound Measurements: Wound Data: Wound Right Leg Medial Blister (bullae) (Active) Wound Right Foot Plantar Diabetic ulcer (neuropathic) (Active) Dressing Status / Change Moist with drainage 12/28/21 1400 Wound Bed Appearance [place];Red 12/28/21 1400 Drainage Amount Moderate 12/28/21 1400 Drainage Appearance Red brown 12/28/21 1400 Odor None 12/28/21 1400 Wound cleanser Normal saline 12/28/21 1400 Specific Procedures Cultures 06/22/21 1000 Advanced Wound Intervention Other (Comment) 12/22/21 1039 Wound length (cm) 0.9 cm 12/28/21 1500 Wound width (cm) 0.6 cm 12/28/21 1500 Wound depth (cm) 0.15 cm 12/28/21 1500 Wound Surface Area (length x width) 0.54 12/28/21 1500 Undermining / Tunneling Yes 08/17/21 1000 Periwound (surrounding) tissue Calloused 12/28/21 1400 Topical Agents Zinc oxide 08/17/21 1044 Primary Dressing Alginate;Absorptive 12/22/21 1039 Secondary Dressing Other (Comment);Elastic bandage 12/22/21 1039 Pressure Ulcer Data:. Objective Vitals Signs: Visit Vitals BP 142/77 Pulse 74 Temp 97.1 F (36.2 C) Resp 18 OB Status Postmenopausal Smoking Status Former Smoker General Exam GENERAL: The patient is in no acute distress. RESP: Nonlabored breathing. No distress. Normal respirations. ABD: benign EXTREMITIES: No signs of infection to the right lower extremity Medications and Allergies No outpatient medications have been marked as taking for the 12/28/21 encounter (Hospital Encounter)with [facility]. Allergies Allergen Reactions Tape 1"X5yd [Adhesive Tape] Rash Redness. Avoids. Prefers paper tape Labs: WBC COUNT Date Value Ref Range Status 02/09/2021 6.4 3.5 - 10.9 K/uL Final HEMOGLOBIN Date Value Ref Range Status 02/09/2021 12.8 11.2 - 15.7 G/DL Final HEMATOCRIT Date Value Ref Range Status 02/09/2021 38.5 34.0 - 49.0 % Final PLATELET COUNT Date Value Ref Range Status 02/09/2021 275 140 - 400 K/uL Final SODIUM Date Value Ref Range Status 02/09/2021 140 135 - 148 MEQ/L Final 10/21/2020 135 135 - 148 MEQ/L POTASSIUM Date Value Ref Range Status 02/09/2021 4.7 3.4 - 5.3 MEQ/L Final CHLORIDE Date Value Ref Range Status 02/09/2021 102 96 - 110 MEQ/L Final CARBON DIOXIDE Date Value Ref Range Status 02/09/2021 24 19 - 32 MEQ/L Final GLUCOSE Date Value Ref Range Status 02/09/2021 179 70 - 99 MG/DL Final Comment: (NOTE) The [place] [employer] recommends the following guidelines: MG/DL <100 = NORMAL GLUCOSE 100-125= IMPAIRED FASTING GLUCOSE >=126 = PROVISIONAL DIAGNOSIS OF DIABETES ADA Workgroup Report, Diabetic Care, volume 40August 2016 CREATININE Date Value Ref Range Status 02/09/2021 1.0 0.5 - 1.2 MG/DL Final BUN Date Value Ref Range Status 02/09/2021 29 3 - 29 MG/DL Final CALCIUM Date Value Ref Range Status 02/09/2021 10.2 8.5 - 10.5 MG/DL Final ALBUMIN, SERUM Date Value Ref Range Status 10/16/2020 2.9 3.5 - 5.2 GM/DL PROTHROMBIN TIME Date Value Ref Range Status 05/15/2019 13.0 11.7 - 13.9 SECONDS PARTIAL THROMBOPLASTIN TIME Date Value Ref Range Status 05/15/2019 23.3 24.5 - 35.2 SECONDS INR Date Value Ref Range Status 05/15/2019 1.0 0.9 - 1.1 Comment: MODERATE-INTENSITY WARFARIN THERAPY: 2.0-3.0 HIGHER-INTENSITY WARFARIN THERAPY: 3.0-4.0 HEMOGLOBIN A1C Date Value Ref Range Status 06/07/2021 7.4 4.0 - 6.0 % Final Comment: (NOTE) The [place] [employer] recommends the following Guidelines: 5.7-6.4% Indicates increased risk for diabetes (Prediabetes). >6.5% Diagnostic of diabetes. In the absence of unequivocal hyperglycemia, results should be confirmed by repeat test. <7% Glycemic recommendation for non adults with diabetes. [place] [employer], Standards of Medical Care in Diabetes, Volume 40; 2017 Excisional Debridement Procedure Note Site of debridement: Subfirst metatarsal head right foot Time out performed prior to treatment. Indication: Removal of nonviable tissue, fibrin, and exudates/slough Anesthesia: topical lidocaine per orders when needed Procedure: Excisional debridement was done using a scalpel and/or curette to remove the nonviable tissue and/or slough/exudates and fibrin after patient placed in a comfortable position. Nonexcisional debridement also done using 4x4 gauze and/or irrigation and/or cotton tip applicator. Level of Debridement: Subcutaneous tissue Total area debrided (sqcm): 0.54 Response to procedure: satisfactory Complications: none Post debridement measurements done by RN and reviewed by myself The patient's condition and plan of care have been explained to the patient and/or significant others. This explanation included risks and benefits, alternative forms of treatment and risk of non-treatment. Patient understands there is no guarantee or warranty as to results or cures. Patient and/or significant others or caregivers agree with the plan of care and demonstrate an understanding of their responsibilities as a member of their plan of care. Patient has been instructed to contact the Wound Care Center with any concerns that arise before their next visit. Inocencio Mcfadden DPM [facility] documented in this encounterMemorial Health [id number] Hospital Discharge instructions* Discharge Instructions* Trini Boyce RN - 12/27/2021 4:12 PM EDT You have been treated at [facility] for reasons of wound healing. WOUND CARE: With Dressing Changes - wash your hands prior to starting and after you finish and dispose of old materials properly. The following wound care procedure has been ordered for you in treating your wound: Wound location: Right Plantar Foot Cleanse with: wound cleanser Zinc paste to periwound Apply to wound: collagen Ag, alginate, abd Secure with: kerlix, villa wrap Offloading: Impax diabetic shoe insole Change Dressinx/week Return: 2 weeks SPECIAL INSTRUCTIONS: Nutrition: Increase dietary protein intake as instructed. Foot Wear: Follow specialty footwear instructions as advised. Off loading/Pressure Reduce: PRECAUTIONS: If any of the following occur, contact [phone] immediately or go to your nearest emergency room!! Fever over 101 degrees Increase in drainage Redness around wound and/or streaking Odor or drainage Increase in pain Increased swelling Bleeding Need for compression bandage changes (slippage, breakthrough drainage) IF YOU ARE A DIABETIC: Gently dry well including between your toes Inspect feet/legs DAILY for skin problems, blisters, etc. Wear socks/stockings at all times Tell us if you need assistance putting on your socks or shoes Elevate your feet often, if swelling reaches your legs Wear compression garments as instructed Call us if you are sick, have a cold or flu HOME MEDICATIONS AT DISCHARGE Warning, if you take acetaminophen products: No more than 3Gms or 3000mg of acetaminophen (Tylenol)should be taken daily (eg. 6 extra-strength Tylenol). Be aware that multiple medications contain tylenol products(eg.vicodin, lortab, percocet, darvocet, and nonaspirin pain relievers). FUTURE VISIT INFORMATION: Call us if you are unable to come, leave a message if unable to speak to a staff member Every effort will be made to keep your scheduled appointment, [facility] In that case we will reschedule your treatments as soon as possible. Your signature verifies that we have reviewed this document and that you understand the importance of the information above and acknowledge receipt of same. Failure to comply with these reminders mayresult in delay of your care and/or termination of treatment. If you have any questions, please call us at [phone] documented in this encounterMemorial Health [id number] History of Present illness Narrative* Estiven Mcfadden DPM - 12/14/2021 1:00 PM EDT [facility] W[facility] 12/14/2021 Patient Name: Hanna Nelson : 1940 AGE: [age] year old GENDER: Female Chief Complaint/Reason for Visit Hanna Nelson is a 81 year old female who presents today for wound care of chronic wound on the bottom of the right foot. Wound was previously almost healed but she said about a week ago it openedback up. She was seen on Saturday in the office and wound care was started again. Still in the process of getting diabetic shoes from her outpatient clothing trades workers Assessment/Dermatologic Exam/Plan Assessment -Right lower extremity ulceration down to subcutaneous tissue -Type 2 diabetes mellitus with peripheral neuropathy Plan -Patient was seen, evaluated, and treated today. -No signs of infection. Monitor off antibiotics. -Wound subfirst metatarsal it opened back up again today -Collagen and dry dressing to the area 3 times a week -Offloading shoe with peg assist -Continue to follow-up with outpatient clothing trades workers to obtain custom diabetic shoes to offload the area and prevent wound formation in the future -Any signs of infection before I see her again to go to the emergency room -Follow-up 1 week for recheck Patient's Problem List Patient Active Problem List Diagnosis Essential hypertension Type 2 diabetes mellitus (HC CODE) Arthritis Hypothyroidism Palpitation Hyponatremia Spinal stenosis of lumbar region with neurogenic claudication Paroxysmal atrial fibrillation (HC CODE) Postoperative ileus (HC CODE) Paraparesis (HC CODE) Ataxia Cellulitis Peripheral vascular disease (HC CODE) Lower extremity ulceration, right, with fat layer exposed (HC CODE) Education regarding disease process, wound care, pressure relief and elevation discussed with patient today. Time spent with patient and patient care related issues in addition to coordination of patient's care with other physicians/agencies: Discharge Instructions were given to patient, significant other, caregiver, or DPOHC. Follow-up Current Wound Measurements: Wound Data: Wound Right Leg Medial Blister (bullae) (Active) Wound Right Foot Plantar Diabetic ulcer (neuropathic) (Active) Dressing Status / Change Moist with drainage 12/14/21 1200 Wound Bed Appearance [place];Slough 12/14/21 1200 Drainage Amount Moderate 12/14/21 1200 Drainage Appearance Serosanguineous 12/14/21 1200 Odor None 12/14/21 1200 Wound cleanser Normal saline 12/14/21 1200 Specific Procedures Cultures 06/22/21 1000 Advanced Wound Intervention Photos 12/12/21 1059 Wound length (cm) 1.9 cm 12/14/21 1300 Wound width (cm) 1.5 cm 12/14/21 1300 Wound depth (cm) 0.1 cm 12/14/21 1300 Wound Surface Area (length x width) 2.85 12/14/21 1300 Undermining / Tunneling Yes 08/17/21 1000 Periwound (surrounding) tissue Calloused 12/14/21 1200 Topical Agents Zinc oxide 08/17/21 1044 Primary Dressing Collagens;Antimicrobial;Alginate;Absorptive 12/14/21 1300 Secondary Dressing Other (Comment);Elastic bandage 12/14/21 1300 Pressure Ulcer Data:. Objective Vitals Signs: Visit Vitals BP 172/89 Pulse 71 Temp 97.8 F (36.6 C) Resp 16 OB Status Postmenopausal Smoking Status Former Smoker General Exam GENERAL: The patient is in no acute distress. RESP: Nonlabored breathing. No distress. Normal respirations. ABD: benign EXTREMITIES: No signs of infection to the right lower extremity Medications and Allergies No outpatient medications have been marked as taking for the 12/14/21 encounter (Hospital Encounter) with [facility] 3. Allergies Allergen Reactions Tape 1"X5yd [Adhesive Tape] Rash Redness. Avoids. Prefers paper tape Labs: WBC COUNT Date Value Ref Range Status 02/09/2021 6.4 3.5 - 10.9 K/uL Final HEMOGLOBIN Date Value Ref Range Status 02/09/2021 12.8 11.2 - 15.7 G/DL Final HEMATOCRIT Date Value Ref Range Status 02/09/2021 38.5 34.0 - 49.0 % Final PLATELET COUNT Date Value Ref Range Status 02/09/2021 275 140 - 400 K/uL Final SODIUM Date Value Ref Range Status 02/09/2021 140 135 - 148 MEQ/L Final 10/21/2020 135 135 - 148 MEQ/L POTASSIUM Date Value Ref Range Status 02/09/2021 4.7 3.4 - 5.3 MEQ/L Final CHLORIDE Date Value Ref Range Status 02/09/2021 102 96 - 110 MEQ/L Final CARBON DIOXIDE Date Value Ref Range Status 02/09/2021 24 19 - 32 MEQ/L Final GLUCOSE Date Value Ref Range Status 02/09/2021 179 70 - 99 MG/DL Final Comment: (NOTE) The [place] [employer] recommends the following guidelines: MG/DL <100 = NORMAL GLUCOSE 100-125= IMPAIRED FASTING GLUCOSE >=126 = PROVISIONAL DIAGNOSIS OF DIABETES ADA Workgroup Report, Diabetic Care, volume 40August 2016 CREATININE Date Value Ref Range Status 02/09/2021 1.0 0.5 - 1.2 MG/DL Final BUN Date Value Ref Range Status 02/09/2021 29 3 - 29 MG/DL Final CALCIUM Date Value Ref Range Status 02/09/2021 10.2 8.5 - 10.5 MG/DL Final ALBUMIN, SERUM Date Value Ref Range Status 10/16/2020 2.9 3.5 - 5.2 GM/DL PROTHROMBIN TIME Date Value Ref Range Status 05/15/2019 13.0 11.7 - 13.9 SECONDS PARTIAL THROMBOPLASTIN TIME Date Value Ref Range Status 05/15/2019 23.3 24.5 - 35.2 SECONDS INR Date Value Ref Range Status 05/15/2019 1.0 0.9 - 1.1 Comment: MODERATE-INTENSITY WARFARIN THERAPY: 2.0-3.0 HIGHER-INTENSITY WARFARIN THERAPY: 3.0-4.0 HEMOGLOBIN A1C Date Value Ref Range Status 06/07/2021 7.4 4.0 - 6.0 % Final Comment: (NOTE) The [place] [employer] recommends the following Guidelines: 5.7-6.4% Indicates increased risk for diabetes (Prediabetes). >6.5% Diagnostic of diabetes. In the absence of unequivocal hyperglycemia, results should be confirmed by repeat test. <7% Glycemic recommendation for non adults with diabetes. [place] [employer], Standards of Medical Care in Diabetes, Volume 40; 2017 Excisional Debridement Procedure Note Site of debridement: Subfirst metatarsal head right foot Time out performed prior to treatment. Indication: Removal of nonviable tissue, fibrin, and exudates/slough Anesthesia: topical lidocaine per orders when needed Procedure: Excisional debridement was done using a scalpel and/or curette to remove the nonviable tissue and/or slough/exudates and fibrin after patient placed in a comfortable position. Nonexcisional debridement also done using 4x4 gauze and/or irrigation and/or cotton tip applicator. Level of Debridement: Subcutaneous tissue Total area debrided (sqcm): 2.85 Response to procedure: satisfactory Complications: none Post debridement measurements done by RN and reviewed by myself The patient's condition and plan of care have been explained to the patient and/or significant others. This explanation included risks and benefits, alternative forms of treatment and risk of non-treatment. Patient understands there is no guarantee or warranty as to results or cures. Patient and/or significant others or caregivers agree with the plan of care and demonstrate an understanding of their responsibilities as a member of their plan of care. Patient has been instructed to contact the Wound Care Center with any concerns that arise before their next visit. Inocencio Mcfadden DPM [facility] documented in this encounterMemorial Health [id number] Hospital Discharge instructions* Discharge Instructions* Trini Boyce RN - 12/13/2021 2:19 PM EDT You have been treated at [facility] for reasons of wound healing. WOUND CARE: With Dressing Changes - wash your hands prior to starting and after you finish and dispose of old materials properly. The following wound care procedure has been ordered for you in treating your wound: Wound location: Right Plantar Foot Cleanse with: wound cleanser Apply to wound: collagen Ag, alginate, abd Secure with: villa harper wrap Offloading: Impax diabetic shoe insole Change Dressinx/week Return: 2 weeks SPECIAL INSTRUCTIONS: Nutrition: Increase dietary protein intake as instructed. Foot Wear: Follow specialty footwear instructions as advised. Off loading/Pressure Reduce: PRECAUTIONS: If any of the following occur, contact [phone] immediately or go to your nearest emergency room!! Fever over 101 degrees Increase in drainage Redness around wound and/or streaking Odor or drainage Increase in pain Increased swelling Bleeding Need for compression bandage changes (slippage, breakthrough drainage) IF YOU ARE A DIABETIC: Gently dry well including between your toes Inspect feet/legs DAILY for skin problems, blisters, etc. Wear socks/stockings at all times Tell us if you need assistance putting on your socks or shoes Elevate your feet often, if swelling reaches your legs Wear compression garments as instructed Call us if you are sick, have a cold or flu HOME MEDICATIONS AT DISCHARGE Warning, if you take acetaminophen products: No more than 3Gms or 3000mg of acetaminophen (Tylenol)should be taken daily (eg. 6 extra-strength Tylenol). Be aware that multiple medications contain tylenol products(eg.vicodin, lortab, percocet, darvocet, and nonaspirin pain relievers). FUTURE VISIT INFORMATION: Call us if you are unable to come, leave a message if unable to speak to a staff member Every effort will be made to keep your scheduled appointment, [facility]. In that case we will reschedule your treatments as soon as possible. Your signature verifies that we have reviewed this document and that you understand the importance of the information above and acknowledge receipt of same. Failure to comply with these reminders mayresult in delay of your care and/or termination of treatment. If you have any questions, please call us at [phone] documented in this encounterMemorial Health [id number] History of Present illness Narrative* Bella Pratt APRN - 12/12/2021 11:00 AM EDT [facility] W[facility] Care Center 12/12/2021 Patient Name: Hanna Nelson : 1940 AGE: [age] year old GENDER: Female Chief Complaint/Reason for Visit Hanna Nelson is a 81 year old female who presents today for wound care of chronic wound on the bottom of the right foot. Did get xrays I asked her to get. No new complaints. Process for diabetic shoes has been started by regular clothing trades workers. Patient requested to come in today as Saturday her wound was noted to be significantly larger with erythema to the dorsal aspect of her foot. Her family friend/clothing trades workers started her on Keflex. Todaythe erythema is gone but maceration around callous, debrided off to reveal new wounds, no abscess noted or purulence. Assessment/Dermatologic Exam/Plan Assessment -Right lower extremity ulceration down to subcutaneous tissue -Type 2 diabetes mellitus with peripheral neuropathy Plan -Patient was seen, evaluated, and treated today. -No signs of infection. Today although wound larger on Keflex until Saturday -Wound debrided Orders change to use silver alginate abd kerlix villa change three times a week and prn. She is doing dressings herself, she cancelled home health. -Peg assist insert to shoe to continue using -She is in the process of getting new diabetic shoes and inserts Follow with Dr Mcfadden Patient's Problem List Patient Active Problem List Diagnosis Essential hypertension Type 2 diabetes mellitus (HC CODE) Arthritis Hypothyroidism Palpitation Hyponatremia Spinal stenosis of lumbar region with neurogenic claudication Paroxysmal atrial fibrillation (HC CODE) Postoperative ileus (HC CODE) Paraparesis (HC CODE) Ataxia Cellulitis Peripheral vascular disease (HC CODE) Lower extremity ulceration, right, with fat layer exposed (HC CODE) Education regarding disease process, wound care, pressure relief and elevation discussed with patient today. Time spent with patient and patient care related issues in addition to coordination of patient's care with other physicians/agencies: Discharge Instructions were given to patient, significant other, caregiver, or DPOHC. Follow-up Current Wound Measurements: Wound Data: Wound Right Leg Medial Blister (bullae) (Active) Wound Right Foot Plantar Diabetic ulcer (neuropathic) (Active) Dressing Status / Change Moist with drainage 12/12/21 1059 Wound Bed Appearance Red;[place] 12/12/21 1059 Drainage Amount Moderate 12/12/21 1059 Drainage Appearance Serosanguineous 12/12/21 1059 Odor None 12/12/21 1059 Wound cleanser Normal saline 12/12/21 1059 Specific Procedures Cultures 06/22/21 1000 Advanced Wound Intervention Photos 12/12/21 1059 Wound length (cm) 1.6 cm 12/12/21 1100 Wound width (cm) 1.5 cm 12/12/21 1100 Wound depth (cm) 0.15 cm 12/12/21 1100 Wound Surface Area (length x width) 2.4 12/12/21 1100 Undermining / Tunneling Yes 08/17/21 1000 Periwound (surrounding) tissue Calloused;Blanchable erythema 12/12/21 1059 Topical Agents Zinc oxide 08/17/21 1044 Primary Dressing Other (Comment);Collagens;Alginate 10/26/21 1100 Secondary Dressing Foam Dressing-Silicone Boarder;Other (Comment) 10/26/21 1100 Excisional Debridement Procedure Note Site of debridement: Right plantar foot Time out performed prior to treatment. Indication: Removal of nonviable tissue, fibrin, and exudates/slough Anesthesia: topical lidocaine per orders when needed Procedure: Excisional debridement was done using a scalpel and/or curette to remove the subcutaneous nonviable tissue and/or slough/exudates and fibrin after patient placed in a comfortable position.Nonexcisional debridement also done using 4x4 gauze and/or irrigation and/or cotton tip applicator. Level of Debridement: subcutaneous Total area debrided (sqcm): 2.4 Response to procedure: satisfactory Bleeding was minimal and controlled with pressure Complications: none Post debridement measurements see below Wound Data: Wound Right Leg Medial Blister (bullae) (Active) Wound Right Foot Plantar Diabetic ulcer (neuropathic) (Active) Dressing Status / Change Moist with drainage 12/12/21 1059 Wound Bed Appearance Red;[place] 12/12/21 1059 Drainage Amount Moderate 12/12/21 1059 Drainage Appearance Serosanguineous 12/12/21 1059 Odor None 12/12/21 1059 Wound cleanser Normal saline 12/12/21 1059 Specific Procedures Cultures 06/22/21 1000 Advanced Wound Intervention Photos 12/12/21 1059 Wound length (cm) 1.6 cm 12/12/21 1100 Wound width (cm) 1.5 cm 12/12/21 1100 Wound depth (cm) 0.15 cm 12/12/21 1100 Wound Surface Area (length x width) 2.4 12/12/21 1100 Undermining / Tunneling Yes 08/17/21 1000 Periwound (surrounding) tissue Calloused;Blanchable erythema 12/12/21 1059 Topical Agents Zinc oxide 08/17/21 1044 Primary Dressing Other (Comment);Collagens;Alginate 10/26/21 1100 Secondary Dressing Foam Dressing-Silicone Boarder;Other (Comment) 10/26/21 1100 Pressure Ulcer Data:. Objective Vitals Signs: Visit Vitals OB Status Postmenopausal Smoking Status Former Smoker General Exam GENERAL: The patient is in no acute distress. RESP: Nonlabored breathing. No distress. Normal respirations. ABD: benign EXTREMITIES: No signs of infection to the right lower extremity Medications and Allergies Admission Date: Medication Sig Dispense Refill cephalexin (KEFLEX) 500 mg capsule Take 500 mg by mouth two times a day One capsule by mouth twice a day x10 days Allergies Allergen Reactions Tape 1"X5yd [Adhesive Tape] Rash Redness. Avoids. Prefers paper tape Labs: WBC COUNT Date Value Ref Range Status 02/09/2021 6.4 3.5 - 10.9 K/uL Final HEMOGLOBIN Date Value Ref Range Status 02/09/2021 12.8 11.2 - 15.7 G/DL Final HEMATOCRIT Date Value Ref Range Status 02/09/2021 38.5 34.0 - 49.0 % Final PLATELET COUNT Date Value Ref Range Status 02/09/2021 275 140 - 400 K/uL Final SODIUM Date Value Ref Range Status 02/09/2021 140 135 - 148 MEQ/L Final 10/21/2020 135 135 - 148 MEQ/L POTASSIUM Date Value Ref Range Status 02/09/2021 4.7 3.4 - 5.3 MEQ/L Final CHLORIDE Date Value Ref Range Status 02/09/2021 102 96 - 110 MEQ/L Final CARBON DIOXIDE Date Value Ref Range Status 02/09/2021 24 19 - 32 MEQ/L Final GLUCOSE Date Value Ref Range Status 02/09/2021 179 70 - 99 MG/DL Final Comment: (NOTE) The [place] [employer] recommends the following guidelines: MG/DL <100 = NORMAL GLUCOSE 100-125= IMPAIRED FASTING GLUCOSE >=126 = PROVISIONAL DIAGNOSIS OF DIABETES ADA Workgroup Report, Diabetic Care, volume 40August 2016 CREATININE Date Value Ref Range Status 02/09/2021 1.0 0.5 - 1.2 MG/DL Final BUN Date Value Ref Range Status 02/09/2021 29 3 - 29 MG/DL Final CALCIUM Date Value Ref Range Status 02/09/2021 10.2 8.5 - 10.5 MG/DL Final ALBUMIN, SERUM Date Value Ref Range Status 10/16/2020 2.9 3.5 - 5.2 GM/DL PROTHROMBIN TIME Date Value Ref Range Status 05/15/2019 13.0 11.7 - 13.9 SECONDS PARTIAL THROMBOPLASTIN TIME Date Value Ref Range Status 05/15/2019 23.3 24.5 - 35.2 SECONDS INR Date Value Ref Range Status 05/15/2019 1.0 0.9 - 1.1 Comment: MODERATE-INTENSITY WARFARIN THERAPY: 2.0-3.0 HIGHER-INTENSITY WARFARIN THERAPY: 3.0-4.0 HEMOGLOBIN A1C Date Value Ref Range Status 06/07/2021 7.4 4.0 - 6.0 % Final Comment: (NOTE) The [place] [employer] recommends the following Guidelines: 5.7-6.4% Indicates increased risk for diabetes (Prediabetes). >6.5% Diagnostic of diabetes. In the absence of unequivocal hyperglycemia, results should be confirmed by repeat test. <7% Glycemic recommendation for non adults with diabetes. [place] [employer], Standards of Medical Care in Diabetes, Volume 40; 2017 documented in this encounterPremier [id number] Hospital Discharge instructions* Discharge Instructions* Mercedez Velasquez RN - 12/12/2021 10:50 AM EDT You have been treated at [facility] for reasons of wound healing. WOUND CARE: With Dressing Changes - wash your hands prior to starting and after you finish and dispose of old materials properly. The following wound care procedure has been ordered for you in treating your wound: Wound location: Right Plantar Foot Cleanse with: wound cleanser Apply to wound: silver alginate, abd Secure with: kerlix, villa wrap Offloading: Impax diabetic shoe insole Change Dressinx/week Return: with Dr. Mcfadden SPECIAL INSTRUCTIONS: Nutrition: Increase dietary protein intake as instructed. Foot Wear: Follow specialty footwear instructions as advised. Off loading/Pressure Reduce: PRECAUTIONS: If any of the following occur, contact [phone] immediately or go to your nearest emergency room!! Fever over 101 degrees Increase in drainage Redness around wound and/or streaking Odor or drainage Increase in pain Increased swelling Bleeding Need for compression bandage changes (slippage, breakthrough drainage) IF YOU ARE A DIABETIC: Gently dry well including between your toes Inspect feet/legs DAILY for skin problems, blisters, etc. Wear socks/stockings at all times Tell us if you need assistance putting on your socks or shoes Elevate your feet often, if swelling reaches your legs Wear compression garments as instructed Call us if you are sick, have a cold or flu HOME MEDICATIONS AT DISCHARGE Warning, if you take acetaminophen products: No more than 3Gms or 3000mg of acetaminophen (Tylenol)should be taken daily (eg. 6 extra-strength Tylenol). Be aware that multiple medications contain tylenol products(eg.vicodin, lortab, percocet, darvocet, and nonaspirin pain relievers). FUTURE VISIT INFORMATION: Call us if you are unable to come, leave a message if unable to speak to a staff member Every effort will be made to keep your scheduled appointment, [facility] In that case we will reschedule your treatments as soon as possible. Your signature verifies that we have reviewed this document and that you understand the importance of the information above and acknowledge receipt of same. Failure to comply with these reminders mayresult in delay of your care and/or termination of treatment. If you have any questions, please call us at [phone] documented in this encounterMemorial Health [id number] History of Present illness Narrative* Estiven Mcfadden DPM - 11/23/2021 1:00 PM EDT [facility] W[facility] Care Center 11/23/2021 Patient Name: Hanna Nelson : 1940 AGE: [age] year old GENDER: Female Chief Complaint/Reason for Visit Hanna Nelson is a 81 year old female who presents today for wound care of chronic wound on the bottom of the right foot. Did get xrays I asked her to get. No new complaints. Process for diabetic shoes has been started by regular clothing trades workers. Assessment/Dermatologic Exam/Plan Assessment -Right lower extremity ulceration down to subcutaneous tissue -Type 2 diabetes mellitus with peripheral neuropathy Plan -Patient was seen, evaluated, and treated today. -No signs of infection. Monitor off antibiotics. -X-rays for the right foot negative for any acute findings -Peg assist insert placed in patient's shoe today -Process for patient's diabetic shoes have been started -Patient has some family event she is going to 2 weeks last about 3-week follow- up. I told her thiswas okay unless she has any concerns before that I can see her. -Continue with same dressing regimen. Patient's Problem List Patient Active Problem List Diagnosis Essential hypertension Type 2 diabetes mellitus (HC CODE) Arthritis Hypothyroidism Palpitation Hyponatremia Spinal stenosis of lumbar region with neurogenic claudication Paroxysmal atrial fibrillation (HC CODE) Postoperative ileus (HC CODE) Paraparesis (HC CODE) Ataxia Cellulitis Peripheral vascular disease (HC CODE) Lower extremity ulceration, right, with fat layer exposed (HC CODE) Education regarding disease process, wound care, pressure relief and elevation discussed with patient today. Time spent with patient and patient care related issues in addition to coordination of patient's care with other physicians/agencies: Discharge Instructions were given to patient, significant other, caregiver, or DPOHC. Follow-up Current Wound Measurements: Wound Data: Wound Right Leg Medial Blister (bullae) (Active) Wound Right Foot Plantar Diabetic ulcer (neuropathic) (Active) Dressing Status / Change Dried drainage 11/23/21 1200 Wound Bed Appearance Red;Other (Comment) 11/23/21 1200 Drainage Amount Small 11/23/21 1200 Drainage Appearance Serosanguineous 11/09/21 1300 Odor None 11/09/21 1300 Wound cleanser Body wash / periwash;Normal saline 11/23/21 1200 Specific Procedures Cultures 06/22/21 1000 Advanced Wound Intervention Photos 10/26/21 1000 Wound length (cm) 0.2 cm 11/23/21 1300 Wound width (cm) 0.1 cm 11/23/21 1300 Wound depth (cm) 0.15 cm 11/23/21 1300 Wound Surface Area (length x width) 0.02 11/23/21 1300 Undermining / Tunneling Yes 08/17/21 1000 Periwound (surrounding) tissue Calloused 11/23/21 1200 Topical Agents Zinc oxide 08/17/21 1044 Primary Dressing Other (Comment);Collagens;Alginate 10/26/21 1100 Secondary Dressing Foam Dressing-Silicone Boarder;Other (Comment) 10/26/21 1100 Pressure Ulcer Data:. Objective Vitals Signs: Visit Vitals BP 165/82 Pulse 71 Temp 97.9 F (36.6 C) Resp 16 OB Status Postmenopausal Smoking Status Former Smoker General Exam GENERAL: The patient is in no acute distress. RESP: Nonlabored breathing. No distress. Normal respirations. ABD: benign EXTREMITIES: No signs of infection to the right lower extremity Medications and Allergies Admission Date: Medication Sig Dispense Refill trimethoprim-sulfamethoxazole (BACTRIM DS) 160-800 mg tablet Take 1 Tab by mouth two times a day 14Tab 0 Allergies Allergen Reactions Tape 1"X5yd [Adhesive Tape] Rash Redness. Avoids. Prefers paper tape Labs: WBC COUNT Date Value Ref Range Status 02/09/2021 6.4 3.5 - 10.9 K/uL Final HEMOGLOBIN Date Value Ref Range Status 02/09/2021 12.8 11.2 - 15.7 G/DL Final HEMATOCRIT Date Value Ref Range Status 02/09/2021 38.5 34.0 - 49.0 % Final PLATELET COUNT Date Value Ref Range Status 02/09/2021 275 140 - 400 K/uL Final SODIUM Date Value Ref Range Status 02/09/2021 140 135 - 148 MEQ/L Final 10/21/2020 135 135 - 148 MEQ/L POTASSIUM Date Value Ref Range Status 02/09/2021 4.7 3.4 - 5.3 MEQ/L Final CHLORIDE Date Value Ref Range Status 02/09/2021 102 96 - 110 MEQ/L Final CARBON DIOXIDE Date Value Ref Range Status 02/09/2021 24 19 - 32 MEQ/L Final GLUCOSE Date Value Ref Range Status 02/09/2021 179 70 - 99 MG/DL Final Comment: (NOTE) The [place] [employer] recommends the following guidelines: MG/DL <100 = NORMAL GLUCOSE 100-125= IMPAIRED FASTING GLUCOSE >=126 = PROVISIONAL DIAGNOSIS OF DIABETES ADA Workgroup Report, Diabetic Care, volume 40August 2016 CREATININE Date Value Ref Range Status 02/09/2021 1.0 0.5 - 1.2 MG/DL Final BUN Date Value Ref Range Status 02/09/2021 29 3 - 29 MG/DL Final CALCIUM Date Value Ref Range Status 02/09/2021 10.2 8.5 - 10.5 MG/DL Final ALBUMIN, SERUM Date Value Ref Range Status 10/16/2020 2.9 3.5 - 5.2 GM/DL PROTHROMBIN TIME Date Value Ref Range Status 05/15/2019 13.0 11.7 - 13.9 SECONDS PARTIAL THROMBOPLASTIN TIME Date Value Ref Range Status 05/15/2019 23.3 24.5 - 35.2 SECONDS INR Date Value Ref Range Status 05/15/2019 1.0 0.9 - 1.1 Comment: MODERATE-INTENSITY WARFARIN THERAPY: 2.0-3.0 HIGHER-INTENSITY WARFARIN THERAPY: 3.0-4.0 HEMOGLOBIN A1C Date Value Ref Range Status 06/07/2021 7.4 4.0 - 6.0 % Final Comment: (NOTE) The [place] [employer] recommends the following Guidelines: 5.7-6.4% Indicates increased risk for diabetes (Prediabetes). >6.5% Diagnostic of diabetes. In the absence of unequivocal hyperglycemia, results should be confirmed by repeat test. <7% Glycemic recommendation for non adults with diabetes. [place] [employer], Standards of Medical Care in Diabetes, Volume 40; 2017 Excisional Debridement Procedure Note Site of debridement: Subfirst metatarsal head right foot Time out performed prior to treatment. Indication: Removal of nonviable tissue, fibrin, and exudates/slough Anesthesia: topical lidocaine per orders when needed Procedure: Excisional debridement was done using a scalpel and/or curette to remove the nonviable tissue and/or slough/exudates and fibrin after patient placed in a comfortable position. Nonexcisional debridement also done using 4x4 gauze and/or irrigation and/or cotton tip applicator. Level of Debridement: Subcutaneous tissue Total area debrided (sqcm): 0.02 Response to procedure: satisfactory Complications: none Post debridement measurements done by RN and reviewed by myself The patient's condition and plan of care have been explained to the patient and/or significant others. This explanation included risks and benefits, alternative forms of treatment and risk of non-treatment. Patient understands there is no guarantee or warranty as to results or cures. Patient and/or significant others or caregivers agree with the plan of care and demonstrate an understanding of their responsibilities as a member of their plan of care. Patient has been instructed to contact the Wound Care Center with any concerns that arise before their next visit. Inocencio Mcfadden DPM [facility] documented in this encounterMemorial Health [id number] Miscellaneous Notes* Care Plan - Trini Boyce RN - 11/23/2021 1:00 PM EDT Progressing documented in this encounterMemorial Health [id number] Note* Care Plan - Trini Boyce RN - 11/23/2021 1:00 PM EDT Progressing [facility] [id number] Hospital Discharge instructions* Discharge Instructions * Trini Boyce RN - 11/23/2021 8:27 AM EDT You have been treated at [facility] for reasons of wound healing. WOUND CARE: With Dressing Changes - wash your hands prior to starting and after you finish and dispose of old materials properly. The following wound care procedure has been ordered for you in treating your wound: Wound location: Right Plantar Foot Cleanse with: wound cleanser Apply to wound: collagen, alginate Secure with: borderfoam Offloading: Impax diabetic shoe insole Change Dressinx/week HHC: [place] Return: 3 weeks SPECIAL INSTRUCTIONS: Nutrition: Increase dietary protein intake as instructed. Foot Wear: Follow specialty footwear instructions as advised. Off loading/Pressure Reduce: PRECAUTIONS: If any of the following occur, contact [phone] immediately or go to your nearest emergency room!! Fever over 101 degrees Increase in drainage Redness around wound and/or streaking Odor or drainage Increase in pain Increased swelling Bleeding Need for compression bandage changes (slippage, breakthrough drainage) IF YOU ARE A DIABETIC: Gently dry well including between your toes Inspect feet/legs DAILY for skin problems, blisters, etc. Wear socks/stockings at all times Tell us if you need assistance putting on your socks or shoes Elevate your feet often, if swelling reaches your legs Wear compression garments as instructed Call us if you are sick, have a cold or flu HOME MEDICATIONS AT DISCHARGE Warning, if you take acetaminophen products: No more than 3Gms or 3000mg of acetaminophen (Tylenol)should be taken daily (eg. 6 extra-strength Tylenol). Be aware that multiple medications contain tylenol products(eg.vicodin, lortab, percocet, darvocet, and nonaspirin pain relievers). FUTURE VISIT INFORMATION: Call us if you are unable to come, leave a message if unable to speak to a staff member Every effort will be made to keep your scheduled appointment, [facility] In that case we will reschedule your treatments as soon as possible. Your signature verifies that we have reviewed this document and that you understand the importance of the information above and acknowledge receipt of same. Failure to comply with these reminders mayresult in delay of your care and/or termination of treatment. If you have any questions, please call us at [phone] documented in this encounterMemorial Health [id number] History of Present illness Narrative* Estiven Mcfadden DPM - 11/09/2021 1:00 PM EDT [facility] Wound Care Center 11/09/2021 Patient Name: Hanna Nelson : 1940 AGE: [age] year old GENDER: Female Chief Complaint/Reason for Visit Hanna Nelson is a 81 year old female who presents today for wound care of chronic wound on the bottom of the right foot. Been present for a couple of years. Says that it gets better but then opens back up again. Denies any pain to the area. Says that she is a diabetic and does get numbness tingling burning in her feet secondary to this. History of back surgery so she has a tough time ambulating and bending over. Says that she feels unsteady at times when she walks around. Denies recently being on any oral antibiotics for her foot wound. Assessment/Dermatologic Exam/Plan Assessment -Right lower extremity ulceration down to subcutaneous tissue -Type 2 diabetes mellitus with peripheral neuropathy Plan -Patient was seen, evaluated, and treated today. -No signs of infection. Monitor off antibiotics. -Chronic subfirst metatarsal head wound. -Patient has significant rear foot and midfoot arthritis putting her foot in a very rigid position.Increased plantar pressures are noted at the subfirst metatarsal area because of this. -Wound does appear to be getting better at this time. Continue with offloading with current diabetic shoes that she has. [place] offloading was placed in her shoes by myself today. -Says that her regular clothing trades workers is in the process of getting her new custom shoes. -Briefly discussed total contact casting today. Patient says that she has done this in the past butgiven that she currently feels unsteady when she ambulates at baseline I would not want to do this to make her feel more comfortable. -Right foot x-rays ordered today she has not recently had any. -Follow-up 2 weeks for recheck Patient's Problem List Patient Active Problem List Diagnosis Essential hypertension Type 2 diabetes mellitus (HC CODE) Arthritis Hypothyroidism Palpitation Hyponatremia Spinal stenosis of lumbar region with neurogenic claudication Paroxysmal atrial fibrillation (HC CODE) Postoperative ileus (HC CODE) Paraparesis (HC CODE) Ataxia Cellulitis Peripheral vascular disease (HC CODE) Lower extremity ulceration, right, with fat layer exposed (HC CODE) Education regarding disease process, wound care, pressure relief and elevation discussed with patient today. Time spent with patient and patient care related issues in addition to coordination of patient's care with other physicians/agencies: Discharge Instructions were given to patient, significant other, caregiver, or DPOHC. Follow-up Current Wound Measurements: Wound Data: Wound Right Leg Medial Blister (bullae) (Active) Wound Right Foot Plantar Diabetic ulcer (neuropathic) (Active) Dressing Status / Change Moist with drainage 11/09/21 1300 Wound Bed Appearance Red 11/09/21 1300 Drainage Amount Moderate 11/09/21 1300 Drainage Appearance Serosanguineous 11/09/21 1300 Odor None 11/09/21 1300 Wound cleanser Normal saline 11/09/21 1300 Specific Procedures Cultures 06/22/21 1000 Advanced Wound Intervention Photos 10/26/21 1000 Wound length (cm) 0.2 cm 11/09/21 1326 Wound width (cm) 0.1 cm 11/09/21 1326 Wound depth (cm) 0.1 cm 11/09/21 1326 Wound Surface Area (length x width) 0.02 11/09/21 1326 Undermining / Tunneling Yes 08/17/21 1000 Periwound (surrounding) tissue Macerated;Calloused 11/09/21 1300 Topical Agents Zinc oxide 08/17/21 1044 Primary Dressing Other (Comment);Collagens;Alginate 10/26/21 1100 Secondary Dressing Foam Dressing-Silicone Boarder;Other (Comment) 10/26/21 1100 Pressure Ulcer Data:. Objective Vitals Signs: Visit Vitals BP 191/87 Pulse 76 Temp 98.3 F (36.8 C) Resp 18 OB Status Postmenopausal Smoking Status Former Smoker General Exam GENERAL: The patient is in no acute distress. RESP: Nonlabored breathing. No distress. Normal respirations. ABD: benign EXTREMITIES: No signs of infection to the right lower extremity Medications and Allergies No outpatient medications have been marked as taking for the 11/09/21 encounter (Hospital Encounter)with [facility] 3. Allergies Allergen Reactions Tape 1"X5yd [Adhesive Tape] Rash Redness. Avoids. Prefers paper tape Labs: WBC COUNT Date Value Ref Range Status 02/09/2021 6.4 3.5 - 10.9 K/uL Final HEMOGLOBIN Date Value Ref Range Status 02/09/2021 12.8 11.2 - 15.7 G/DL Final HEMATOCRIT Date Value Ref Range Status 02/09/2021 38.5 34.0 - 49.0 % Final PLATELET COUNT Date Value Ref Range Status 02/09/2021 275 140 - 400 K/uL Final SODIUM Date Value Ref Range Status 02/09/2021 140 135 - 148 MEQ/L Final 10/21/2020 135 135 - 148 MEQ/L POTASSIUM Date Value Ref Range Status 02/09/2021 4.7 3.4 - 5.3 MEQ/L Final CHLORIDE Date Value Ref Range Status 02/09/2021 102 96 - 110 MEQ/L Final CARBON DIOXIDE Date Value Ref Range Status 02/09/2021 24 19 - 32 MEQ/L Final GLUCOSE Date Value Ref Range Status 02/09/2021 179 70 - 99 MG/DL Final Comment: (NOTE) The [place] [employer] recommends the following guidelines: MG/DL <100 = NORMAL GLUCOSE 100-125= IMPAIRED FASTING GLUCOSE >=126 = PROVISIONAL DIAGNOSIS OF DIABETES ADA Workgroup Report, Diabetic Care, volume 40, August 2016 CREATININE Date Value Ref Range Status 02/09/2021 1.0 0.5 - 1.2 MG/DL Final BUN Date Value Ref Range Status 02/09/2021 29 3 - 29 MG/DL Final CALCIUM Date Value Ref Range Status 02/09/2021 10.2 8.5 - 10.5 MG/DL Final ALBUMIN, SERUM Date Value Ref Range Status 10/16/2020 2.9 3.5 - 5.2 GM/DL PROTHROMBIN TIME Date Value Ref Range Status 05/15/2019 13.0 11.7 - 13.9 SECONDS PARTIAL THROMBOPLASTIN TIME Date Value Ref Range Status 05/15/2019 23.3 24.5 - 35.2 SECONDS INR Date Value Ref Range Status 05/15/2019 1.0 0.9 - 1.1 Comment: MODERATE-INTENSITY WARFARIN THERAPY: 2.0-3.0 HIGHER-INTENSITY WARFARIN THERAPY: 3.0-4.0 HEMOGLOBIN A1C Date Value Ref Range Status 06/07/2021 7.4 4.0 - 6.0 % Final Comment: (NOTE) The [place] [employer] recommends the following Guidelines: 5.7-6.4% Indicates increased risk for diabetes (Prediabetes). >6.5% Diagnostic of diabetes. In the absence of unequivocal hyperglycemia, results should be confirmed by repeat test. <7% Glycemic recommendation for non adults with diabetes. [place] [employer], Standards of Medical Care in Diabetes, Volume 40; 2017 Excisional Debridement Procedure Note Site of debridement: Subfirst metatarsal head right foot Time out performed prior to treatment. Indication: Removal of nonviable tissue, fibrin, and exudates/slough Anesthesia: topical lidocaine per orders when needed Procedure: Excisional debridement was done using a scalpel and/or curette to remove the nonviable tissue and/or slough/exudates and fibrin after patient placed in a comfortable position. Nonexcisional debridement also done using 4x4 gauze and/or irrigation and/or cotton tip applicator. Level of Debridement: Subcutaneous tissue Total area debrided (sqcm): 1 Response to procedure: satisfactory Complications: none Post debridement measurements done by RN and reviewed by myself The patient's condition and plan of care have been explained to the patient and/or significant others. This explanation included risks and benefits, alternative forms of treatment and risk of non-treatment. Patient understands there is no guarantee or warranty as to results or cures. Patient and/or significant others or caregivers agree with the plan of care and demonstrate an understanding of their responsibilities as a member of their plan of care. Patient has been instructed to contact the Wound Care Center with any concerns that arise before their next visit. Inocencio Mcfadden DPM [facility] documented in this encounterMemorial Health [id number] Miscellaneous Notes* Care Plan - Trini Boyce RN - 11/09/2021 1:00 PM EDT Progressing documented in this encounterMemorial Health [id number] Hospital Discharge instructions* Instructions* Trini Boyce RN - 11/08/2021 You have been treated at [facility] for reasons of wound healing. WOUND CARE: With Dressing Changes - wash your hands prior to starting and after you finish and dispose of old materials properly. The following wound care procedure has been ordered for you in treating your wound: Wound location: Right Plantar Foot Cleanse with: wound cleanser C felt offloading pad Apply to wound: collagen, alginate Secure with: borderfoam Offloading: Darco shoe Change Dressinx/week HHC: [place] Return: 2 weeks SPECIAL INSTRUCTIONS: Nutrition: Increase dietary protein intake as instructed. Foot Wear: Follow specialty footwear instructions as advised. Off loading/Pressure Reduce: PRECAUTIONS: If any of the following occur, contact [phone] immediately or go to your nearest emergency room!! Fever over 101 degrees Increase in drainage Redness around wound and/or streaking Odor or drainage Increase in pain Increased swelling Bleeding Need for compression bandage changes (slippage, breakthrough drainage) IF YOU ARE A DIABETIC: Gently dry well including between your toes Inspect feet/legs DAILY for skin problems, blisters, etc. Wear socks/stockings at all times Tell us if you need assistance putting on your socks or shoes Elevate your feet often, if swelling reaches your legs Wear compression garments as instructed Call us if you are sick, have a cold or flu HOME MEDICATIONS AT DISCHARGE Warning, if you take acetaminophen products: No more than 3Gms or 3000mg of acetaminophen (Tylenol)should be taken daily (eg. 6 extra-strength Tylenol). Be aware that multiple medications contain tylenol products(eg.vicodin, lortab, percocet, darvocet, and nonaspirin pain relievers). FUTURE VISIT INFORMATION: Call us if you are unable to come, leave a message if unable to speak to a staff member Every effort will be made to keep your scheduled appointment, [facility] In that case we will reschedule your treatments as soon as possible. Your signature verifies that we have reviewed this document and that you understand the importance of the information above and acknowledge receipt of same. Failure to comply with these reminders mayresult in delay of your care and/or termination of treatment. If you have any questions, please call us at [phone] documented in this encounterMemorial Health [id number] History of Present illness Narrative* Tiffany Mcneal PA-C - 10/26/2021 10:15 AM EDT [facility] Wound Care Center 10/26/21 Patient Name: Hanna Nelson : 1940 AGE: [age] year old GENDER: Female Chief Complaint/Reason for Visit Hanna Nelson is a 80 year old female who presents today for wound care. No new wound care complaints nor issues. Tolerating dressing changes well. No systemic complaints. Assessment/Dermatologic Exam/Plan Hanna Nelson is an 80-year-old female who is well-known to the wound center and returns again on 06/22/2021 for re opened right plantar dfu that has previously healed multiple times. Patient statesthe right plantar ulceration opened about a week ago around 06/15/2021, with serous drainage and has surrounding soft callus. On 06/21/2021 noted increased redness and pain, concerning for infection related to wound. She has been covering with dry sterile dressing. She states she follows with podiatry Dr Nichole, was supposed to get shoe insert at last visit. States that visit on 10/26/2021 that she has upcoming podiatry appointment next visit, will hopefully start the process of getting new shoe inserts at this time. Encouraged to keep offloading as much as possible as I think this is related to her wound not fully healing. New surrounding thickened soft white callus formation to periwound. Patient also reports that since previous visit she was treated for a bout of cellulitis, by PCP along right foot. Assessment: Diabetic foot ulcer right plantar surface, Daniels 1, level severity fat layers exposed, with callussurrounding DM hx Right charcot foot deformity Patient's Problem List Patient Active Problem List Diagnosis Essential hypertension Type 2 diabetes mellitus (HC CODE) Arthritis Hypothyroidism Palpitation Hyponatremia Spinal stenosis of lumbar region with neurogenic claudication Paroxysmal atrial fibrillation (HC CODE) Postoperative ileus (HC CODE) Paraparesis (HC CODE) Ataxia Cellulitis Peripheral vascular disease (HC CODE) Wound evaluation: Wound changed shape, slight increase in size. Suspect continuous pressure from current insert/walking. Discussed with patient again today to try and offload more. Has upcoming podiatry appointment for new shoe insert. New surrounding thickened soft white callus formation to periwound. Right plantar forefoot beneath base of great hallux is a small remaining tiny wound bed, pink and moist with no overlying fibrous exudate. No surrounding erythema warmth. No odor. Debrided to stimulate healing with callus paring. Mild serous type drainage. Wound Care recommendations: Debridement. Callus paring. To right plantar foot wound: Cleanse with saline. Pat dry thoroughly. Continue to apply piece of silver collagen, then alginate, cover with border foam. C shaped felt padding to help offload. Has shoe insert. Change three times a week and prn. -Upcoming podiatry appointment next week for new shoe insert. Continues to utilize felt padding to periwound to help offload. Has old and certain shoe that she uses, which does not provide proper offloading. Nutrition: Hemoglobin A1c on 06/27/2020 was 7.8. Patient works closely with PCP for diabetic management. States she is still compliant with her diabetic medications. Recommend tight glycemic control with emphasis on protein with meals. Offloading and Edema control: Elevate extremities at all times possible. Discussed with patient diabetic shoes and inserts. Hers are currently over 1 year and states she is supposed to get new one soon with podiatry service as of 03/10/2021. Reinforced with her today that this is a critical component for wound healing potential. Previously TCC was discussed with patient but declines due to unsafe gait. Infection: Denies pain, no increased drainage or erythema. No clinical signs of infection at this time. Circulation: ABIs 05/29/2018: Left 1.007, right 1.056. No acute concern for critical limb ischemia or vascular ischemic skin changes. Tissue perfusion adequate for healing. Weakly palpable distal pulses bilaterally. Wound Data: Wound Right Leg Medial Blister (bullae) (Active) Wound Right Foot Plantar Diabetic ulcer (neuropathic) (Active) Dressing Status / Change Moist with drainage 10/26/21 1000 Wound Bed Appearance Red 10/26/21 1000 Drainage Amount Moderate 10/26/21 1000 Drainage Appearance Serosanguineous 10/26/21 1000 Odor None 10/26/21 1000 Wound cleanser Normal saline 10/26/21 1000 Specific Procedures Cultures 06/22/21 1000 Advanced Wound Intervention Photos 10/26/21 1000 Wound length (cm) 0.5 cm 10/26/21 1000 Wound width (cm) 0.2 cm 10/26/21 1000 Wound depth (cm) 0.1 cm 10/26/21 1000 Wound Surface Area (length x width) 0.1 10/26/21 1000 Undermining / Tunneling Yes 08/17/21 1000 Periwound (surrounding) tissue Macerated;Calloused 10/26/21 1000 Topical Agents Zinc oxide 08/17/21 1044 Primary Dressing Collagens;Alginate 10/05/21 1035 Secondary Dressing Foam Dressing-Silicone Boarder;Other (Comment) 10/05/21 1035 Excisional Debridement Procedure Note Site of debridement: left hallux Time out performed prior to treatment. Indication: Removal of nonviable tissue, fibrin, and exudates/slough Anesthesia: topical lidocaine per orders when needed Procedure: Excisional debridement was done using a scalpel and/or curette to remove the nonviable tissue and/or slough/exudates and fibrin after patient placed in a comfortable position. Nonexcisional debridement also done using 4x4 gauze and/or irrigation and/or cotton tip applicator. Level of Debridement: SQ Total area debrided (sqcm): 0.1 Response to procedure: satisfactory Complications: none Post debridement measurements done by RN and reviewed by myself Education regarding disease process, wound care, pressure relief and elevation discussed with patient today. Time spent with patient and patient care related issues in addition to coordination of patient's care with other physicians/agencies: Discharge Instructions were given to patient, significant other, caregiver, or DPOHC. Follow-up Follow-Up:2 wk Objective Vitals Signs: Visit Vitals BP 140/72 Pulse 78 Temp 98.3 F (36.8 C) Resp 16 OB Status Postmenopausal Smoking Status Former Smoker General Exam GENERAL: The patient is in no acute distress. Afebrile RESP: Nonlabored breathing. No distress. Normal respirations. ABD: benign, soft EXTREMITIES: Wound to right plantar forefoot as described above. Trace pedal edema. No cyanosis. noerythema or warmth. Distal extremities dry. Medications and Allergies No outpatient medications have been marked as taking for the 10/26/21 encounter (Hospital Encounter)with [facility] 1. Allergies Allergen Reactions Tape 1"X5yd [Adhesive Tape] Rash Redness. Avoids. Prefers paper tape Labs: WBC COUNT Date Value Ref Range Status 02/09/2021 6.4 3.5 - 10.9 K/uL Final HEMOGLOBIN Date Value Ref Range Status 02/09/2021 12.8 11.2 - 15.7 G/DL Final HEMATOCRIT Date Value Ref Range Status 02/09/2021 38.5 34.0 - 49.0 % Final PLATELET COUNT Date Value Ref Range Status 02/09/2021 275 140 - 400 K/uL Final SODIUM Date Value Ref Range Status 02/09/2021 140 135 - 148 MEQ/L Final 10/21/2020 135 135 - 148 MEQ/L POTASSIUM Date Value Ref Range Status 02/09/2021 4.7 3.4 - 5.3 MEQ/L Final CHLORIDE Date Value Ref Range Status 02/09/2021 102 96 - 110 MEQ/L Final CARBON DIOXIDE Date Value Ref Range Status 02/09/2021 24 19 - 32 MEQ/L Final GLUCOSE Date Value Ref Range Status 02/09/2021 179 70 - 99 MG/DL Final Comment: (NOTE) The [place] [employer] recommends the following guidelines: MG/DL <100 = NORMAL GLUCOSE 100-125= IMPAIRED FASTING GLUCOSE >=126 = PROVISIONAL DIAGNOSIS OF DIABETES ADA Workgroup Report, Diabetic Care, volume 40, August 2016 CREATININE Date Value Ref Range Status 02/09/2021 1.0 0.5 - 1.2 MG/DL Final BUN Date Value Ref Range Status 02/09/2021 29 3 - 29 MG/DL Final CALCIUM Date Value Ref Range Status 02/09/2021 10.2 8.5 - 10.5 MG/DL Final ALBUMIN, SERUM Date Value Ref Range Status 10/16/2020 2.9 3.5 - 5.2 GM/DL PROTHROMBIN TIME Date Value Ref Range Status 05/15/2019 13.0 11.7 - 13.9 SECONDS PARTIAL THROMBOPLASTIN TIME Date Value Ref Range Status 05/15/2019 23.3 24.5 - 35.2 SECONDS INR Date Value Ref Range Status 05/15/2019 1.0 0.9 - 1.1 Comment: MODERATE-INTENSITY WARFARIN THERAPY: 2.0-3.0 HIGHER-INTENSITY WARFARIN THERAPY: 3.0-4.0 HEMOGLOBIN A1C Date Value Ref Range Status 06/07/2021 7.4 4.0 - 6.0 % Final Comment: (NOTE) The [place] [employer] recommends the following Guidelines: 5.7-6.4% Indicates increased risk for diabetes (Prediabetes). >6.5% Diagnostic of diabetes. In the absence of unequivocal hyperglycemia, results should be confirmed by repeat test. <7% Glycemic recommendation for non adults with diabetes. [place] [employer], Standards of Medical Care in Diabetes, Volume 40; 2017 The patient's condition and plan of care have been explained to the patient and/or significant others. This explanation included risks and benefits, alternative forms of treatment and risk of non-treatment. Patient understands there is no guarantee or warranty as to results or cures. Patient and/or significant others or caregivers agree with the plan of care and demonstrate an understanding of their responsibilities as a member of their plan of care. Patient has been instructed to contact the Wound Care Center with any concerns that arise before their next visit. After Visit Summary (AVS) given to patient and signed by patient or DPOAHC. Electronically signed by: Tiffany Mcneal PA-C, 10/26/2021 11:18 AM documented in this encounterMemorial Health [id number] Miscellaneous Notes* Care Plan - Katey Herrera RN - 10/26/2021 10:15 AM EDT Progressing. documented in this encounterMemorial Health [id number] Hospital Discharge instructions* Instructions* Katey Herrera RN - 10/25/2021 You have been treated at [facility] for reasons of wound healing. WOUND CARE: With Dressing Changes - wash your hands prior to starting and after you finish and dispose of old materials properly. The following wound care procedure has been ordered for you in treating your wound: Wound location: Right Plantar Foot Cleanse with: wound cleanser C felt offloading pad Apply to wound: collagen, alginate Secure with: borderfoam Offloading: Darco shoe Change Dressinx/week Return: 2 week SPECIAL INSTRUCTIONS: Nutrition: Increase dietary protein intake as instructed. Foot Wear: Follow specialty footwear instructions as advised. Off loading/Pressure Reduce: PRECAUTIONS: If any of the following occur, contact [phone] immediately or go to your nearest emergency room!! Fever over 101 degrees Increase in drainage Redness around wound and/or streaking Odor or drainage Increase in pain Increased swelling Bleeding Need for compression bandage changes (slippage, breakthrough drainage) IF YOU ARE A DIABETIC: Gently dry well including between your toes Inspect feet/legs DAILY for skin problems, blisters, etc. Wear socks/stockings at all times Tell us if you need assistance putting on your socks or shoes Elevate your feet often, if swelling reaches your legs Wear compression garments as instructed Call us if you are sick, have a cold or flu HOME MEDICATIONS AT DISCHARGE Warning, if you take acetaminophen products: No more than 3Gms or 3000mg of acetaminophen (Tylenol)should be taken daily (eg. 6 extra-strength Tylenol). Be aware that multiple medications contain tylenol products(eg.vicodin, lortab, percocet, darvocet, and nonaspirin pain relievers). FUTURE VISIT INFORMATION: Call us if you are unable to come, leave a message if unable to speak to a staff member Every effort will be made to keep your scheduled appointment, occasionally [facility]. In that case we will reschedule your treatments as soon as possible. Your signature verifies that we have reviewed this document and that you understand the importance of the information above and acknowledge receipt of same. Failure to comply with these reminders mayresult in delay of your care and/or termination of treatment. If you have any questions, please call us at [phone] documented in this encounterMemorial Health [id number] History of Present illness Narrative* Tiffany Mcneal PA-C - 10/05/2021 10:15 AM EST [facility] Wound Care Center 10/05/21 Patient Name: Hanna Nelson : 1940 AGE: [age] year old GENDER: Female Chief Complaint/Reason for Visit Hanna Nelson is a 80 year old female who presents today for wound care. No new wound care complaints nor issues. Tolerating dressing changes well. No systemic complaints. Assessment/Dermatologic Exam/Plan Hanna Nelson is an 80-year-old female who is well-known to the wound center and returns again on 06/22/2021 for re opened right plantar dfu that has previously healed multiple times. Patient statesthe right plantar ulceration opened about a week ago around 06/15/2021, with serous drainage and has surrounding soft callus. On 06/21/2021 noted increased redness and pain, concerning for infection related to wound. She has been covering with dry sterile dressing. She states she follows with podiatry Dr Nichole, was supposed to get shoe insert at last visit. Assessment: Diabetic foot ulcer right plantar surface, Daniels 1, level severity fat layers exposed DM hx Right charcot foot deformity Patient's Problem List Patient Active Problem List Diagnosis Essential hypertension Type 2 diabetes mellitus (HC CODE) Arthritis Hypothyroidism Palpitation Hyponatremia Spinal stenosis of lumbar region with neurogenic claudication Paroxysmal atrial fibrillation (HC CODE) Postoperative ileus (HC CODE) Paraparesis (HC CODE) Ataxia Cellulitis Peripheral vascular disease (HC CODE) Wound evaluation: Wound decreased in size. Suspect continuous pressure from current insert/walking keeping tiny opening present. Right plantar forefoot beneath base of great hallux is a small remaining tiny circular wound bed, pink and moist with scant overlying fibrous exudate. Thickened dry callus surrounding. Debrided to stimulate healing with callus paring. Mild serous type drainage. Wound Care recommendations: Debridement. Callus paring. To right plantar foot wound: Cleanse with saline. Pat dry thoroughly. Apply piece of silver collagen, then alginate, cover with border foam. C shaped felt padding to help offload. Has shoe insert. Change three times a week and prn. -D/w patient that she really needs to get a new insert. States she will call today to get into clothing [employer] workers. Nutrition: Hemoglobin A1c on 06/27/2020 was 7.8. Patient works closely with PCP for diabetic management. States she is still compliant with her diabetic medications. Recommend tight glycemic control with emphasis on protein with meals. Offloading and Edema control: Elevate extremities at all times possible. Discussed with patient diabetic shoes and inserts. Hers are currently over 1 year and states she is supposed to get new one soon with podiatry service as of 03/10/2021. This is critical component for wound healing potential. Previously TCC was discussed with patient but declines due to unsafe gait. Infection: Denies pain, no increased drainage or erythema. No clinical signs of infection at this time. Circulation: ABIs 05/29/2018: Left 1.007, right 1.056. No acute concern for critical limb ischemia or vascular ischemic skin changes. Tissue perfusion adequate for healing. Weakly palpable distal pulses bilaterally. Wound Data: Wound Right Leg Medial Blister (bullae) (Active) Wound Right Foot Plantar Diabetic ulcer (neuropathic) (Active) Dressing Status / Change Moist with drainage 10/05/21 1000 Wound Bed Appearance Red 10/05/21 1000 Drainage Amount Small 10/05/21 1000 Drainage Appearance Bloody 10/05/21 1000 Odor None 10/05/21 1000 Wound cleanser Normal saline 10/05/21 1000 Specific Procedures Cultures 06/22/21 1000 Advanced Wound Intervention Other (Comment) 09/21/21 1043 Wound length (cm) 0.3 cm 10/05/21 1000 Wound width (cm) 0.3 cm 10/05/21 1000 Wound depth (cm) 0.05 cm 10/05/21 1000 Wound Surface Area (length x width) 0.09 10/05/21 1000 Undermining / Tunneling Yes 08/17/21 1000 Periwound (surrounding) tissue Calloused 10/05/21 1000 Topical Agents Zinc oxide 08/17/21 1044 Primary Dressing Alginate;Antimicrobial 09/21/21 1100 Secondary Dressing Foam Dressing-Silicone Boarder 09/21/21 1100 Excisional Debridement Procedure Note Site of debridement: left hallux Time out performed prior to treatment. Indication: Removal of nonviable tissue, fibrin, and exudates/slough Anesthesia: topical lidocaine per orders when needed Procedure: Excisional debridement was done using a scalpel and/or curette to remove the nonviable tissue and/or slough/exudates and fibrin after patient placed in a comfortable position. Nonexcisional debridement also done using 4x4 gauze and/or irrigation and/or cotton tip applicator. Level of Debridement: SQ Total area debrided (sqcm): 0.09 Response to procedure: satisfactory Complications: none Post debridement measurements done by RN and reviewed by myself Education regarding disease process, wound care, pressure relief and elevation discussed with patient today. Time spent with patient and patient care related issues in addition to coordination of patient's care with other physicians/agencies: Discharge Instructions were given to patient, significant other, caregiver, or DPOHC. Follow-up Follow-Up: 3 week, going out of town Objective Vitals Signs: Visit Vitals BP 154/76 Pulse 74 Temp 97.6 F (36.4 C) Resp 16 OB Status Postmenopausal Smoking Status Former Smoker General Exam GENERAL: The patient is in no acute distress. Afebrile RESP: Nonlabored breathing. No distress. Normal respirations. ABD: benign, soft EXTREMITIES: Wound to right plantar forefoot as described above. Trace pedal edema. No cyanosis. Noerythema or warmth. Distal extremities dry. Medications and Allergies No outpatient medications have been marked as taking for the 10/05/21 encounter (Hospital Encounter)with [facility] 1. Allergies Allergen Reactions Tape 1"X5yd [Adhesive Tape] Rash Redness. Avoids. Prefers paper tape Labs: WBC COUNT Date Value Ref Range Status 02/09/2021 6.4 3.5 - 10.9 K/uL Final HEMOGLOBIN Date Value Ref Range Status 02/09/2021 12.8 11.2 - 15.7 G/DL Final HEMATOCRIT Date Value Ref Range Status 02/09/2021 38.5 34.0 - 49.0 % Final PLATELET COUNT Date Value Ref Range Status 02/09/2021 275 140 - 400 K/uL Final SODIUM Date Value Ref Range Status 02/09/2021 140 135 - 148 MEQ/L Final 10/21/2020 135 135 - 148 MEQ/L POTASSIUM Date Value Ref Range Status 02/09/2021 4.7 3.4 - 5.3 MEQ/L Final CHLORIDE Date Value Ref Range Status 02/09/2021 102 96 - 110 MEQ/L Final CARBON DIOXIDE Date Value Ref Range Status 02/09/2021 24 19 - 32 MEQ/L Final GLUCOSE Date Value Ref Range Status 02/09/2021 179 70 - 99 MG/DL Final Comment: (NOTE) The [place] [employer] recommends the following guidelines: MG/DL <100 = NORMAL GLUCOSE 100-125= IMPAIRED FASTING GLUCOSE >=126 = PROVISIONAL DIAGNOSIS OF DIABETES ADA Workgroup Report, Diabetic Care, volume 40August 2016 CREATININE Date Value Ref Range Status 02/09/2021 1.0 0.5 - 1.2 MG/DL Final BUN Date Value Ref Range Status 02/09/2021 29 3 - 29 MG/DL Final CALCIUM Date Value Ref Range Status 02/09/2021 10.2 8.5 - 10.5 MG/DL Final ALBUMIN, SERUM Date Value Ref Range Status 10/16/2020 2.9 3.5 - 5.2 GM/DL PROTHROMBIN TIME Date Value Ref Range Status 05/15/2019 13.0 11.7 - 13.9 SECONDS PARTIAL THROMBOPLASTIN TIME Date Value Ref Range Status 05/15/2019 23.3 24.5 - 35.2 SECONDS INR Date Value Ref Range Status 05/15/2019 1.0 0.9 - 1.1 Comment: MODERATE-INTENSITY WARFARIN THERAPY: 2.0-3.0 HIGHER-INTENSITY WARFARIN THERAPY: 3.0-4.0 HEMOGLOBIN A1C Date Value Ref Range Status 06/07/2021 7.4 4.0 - 6.0 % Final Comment: (NOTE) The [place] [employer] recommends the following Guidelines: 5.7-6.4% Indicates increased risk for diabetes (Prediabetes). >6.5% Diagnostic of diabetes. In the absence of unequivocal hyperglycemia, results should be confirmed by repeat test. <7% Glycemic recommendation for non adults with diabetes. [place] [employer], Standards of Medical Care in Diabetes, Volume 40; 2017 The patient's condition and plan of care have been explained to the patient and/or significant others. This explanation included risks and benefits, alternative forms of treatment and risk of non-treatment. Patient understands there is no guarantee or warranty as to results or cures. Patient and/or significant others or caregivers agree with the plan of care and demonstrate an understanding of their responsibilities as a member of their plan of care. Patient has been instructed to contact the Wound Care Center with any concerns that arise before their next visit. After Visit Summary (AVS) given to patient and signed by patient or DPOAHC. Electronically signed by: Tiffany Mcneal PA-C, 10/05/2021 10:18 AM documented in this encounterMemorial Health [id number] Miscellaneous Notes* Care Plan - Katey Herrera RN - 10/05/2021 10:15 AM EST Progressing through wound care process. Debridement performed by MT. Russel perla. Supplies requested and order sent to [facility]. Electronically signed by: Katey Herrera RN, 10/05/2021 11:25 AM documented in this encounterMemorial Health [id number] Hospital Discharge instructions* Instructions* Katey Herrera RN - 10/03/2021 You have been treated at [facility] for reasons of wound healing. WOUND CARE: With Dressing Changes - wash your hands prior to starting and after you finish and dispose of old materials properly. The following wound care procedure has been ordered for you in treating your wound: Wound location: Right Plantar Foot Cleanse with: wound cleanser C felt offloading pad Apply to wound: collagen, alginate Secure with: borderfoam Change Dressinx/week Return: 2 week SPECIAL INSTRUCTIONS: Nutrition: Increase dietary protein intake as instructed. Foot Wear: Follow specialty footwear instructions as advised. Off loading/Pressure Reduce: PRECAUTIONS: If any of the following occur, contact [phone] immediately or go to your nearest emergency room!! Fever over 101 degrees Increase in drainage Redness around wound and/or streaking Odor or drainage Increase in pain Increased swelling Bleeding Need for compression bandage changes (slippage, breakthrough drainage) IF YOU ARE A DIABETIC: Gently dry well including between your toes Inspect feet/legs DAILY for skin problems, blisters, etc. Wear socks/stockings at all times Tell us if you need assistance putting on your socks or shoes Elevate your feet often, if swelling reaches your legs Wear compression garments as instructed Call us if you are sick, have a cold or flu HOME MEDICATIONS AT DISCHARGE Warning, if you take acetaminophen products: No more than 3Gms or 3000mg of acetaminophen (Tylenol)should be taken daily (eg. 6 extra-strength Tylenol). Be aware that multiple medications contain tylenol products(eg.vicodin, lortab, percocet, darvocet, and nonaspirin pain relievers). FUTURE VISIT INFORMATION: Call us if you are unable to come, leave a message if unable to speak to a staff member Every effort will be made to keep your scheduled appointment, [facility] In that case we will reschedule your treatments as soon as possible. Your signature verifies that we have reviewed this document and that you understand the importance of the information above and acknowledge receipt of same. Failure to comply with these reminders mayresult in delay of your care and/or termination of treatment. If you have any questions, please call us at [phone] documented in this encounterMemorial Health [id number] Hospital Discharge instructions* Instructions* Trini Boyce RN - 09/21/2021 You have been treated at [facility] for reasons of wound healing. WOUND CARE: With Dressing Changes - wash your hands prior to starting and after you finish and dispose of old materials properly. The following wound care procedure has been ordered for you in treating your wound: Wound location: Right Plantar Foot Cleanse with: wound cleanser C felt offloading pad Apply to wound: alginate Ag Secure with: borderfoam Change Dressinx/week Return: 2 week SPECIAL INSTRUCTIONS: Nutrition: Increase dietary protein intake as instructed. Foot Wear: Follow specialty footwear instructions as advised. Off loading/Pressure Reduce: PRECAUTIONS: If any of the following occur, contact [phone] immediately or go to your nearest emergency room!! Fever over 101 degrees Increase in drainage Redness around wound and/or streaking Odor or drainage Increase in pain Increased swelling Bleeding Need for compression bandage changes (slippage, breakthrough drainage) IF YOU ARE A DIABETIC: Gently dry well including between your toes Inspect feet/legs DAILY for skin problems, blisters, etc. Wear socks/stockings at all times Tell us if you need assistance putting on your socks or shoes Elevate your feet often, if swelling reaches your legs Wear compression garments as instructed Call us if you are sick, have a cold or flu HOME MEDICATIONS AT DISCHARGE Warning, if you take acetaminophen products: No more than 3Gms or 3000mg of acetaminophen (Tylenol)should be taken daily (eg. 6 extra-strength Tylenol). Be aware that multiple medications contain tylenol products(eg.vicodin, lortab, percocet, darvocet, and nonaspirin pain relievers). FUTURE VISIT INFORMATION: Call us if you are unable to come, leave a message if unable to speak to a staff member Every effort will be made to keep your scheduled appointment, occasionally [facility]. In that case we will reschedule your treatments as soon as possible. Your signature verifies that we have reviewed this document and that you understand the importance of the information above and acknowledge receipt of same. Failure to comply with these reminders mayresult in delay of your care and/or termination of treatment. If you have any questions, please call us at [phone] documented in this encounterMemorial Health [id number] History of Present illness Narrative* Tiffany Mcneal PA-C - 09/21/2021 10:15 AM EST [facility] 09/21/21 Patient Name: Hanna Nelson : 1940 AGE: [age] year old GENDER: Female Chief Complaint/Reason for Visit Hanna Nelson is a 80 year old female who presents today for wound care. No new wound care complaints nor issues. Tolerating dressing changes well. No systemic complaints. Assessment/Dermatologic Exam/Plan Hanna Nelson is an 80-year-old female who is well-known to the wound center and returns again on 06/22/2021 for re opened right plantar dfu that has previously healed multiple times. Patient statesthe right plantar ulceration opened about a week ago around 06/15/2021, with serous drainage and has surrounding soft callus. On 06/21/2021 noted increased redness and pain, concerning for infection related to wound. She has been covering with dry sterile dressing. She states she follows with podiatry Dr Nichole, was supposed to get shoe insert at last visit. Assessment: Diabetic foot ulcer right plantar surface, Daniels 1, level severity fat layers exposed DM hx Right charcot foot deformity Patient's Problem List Patient Active Problem List Diagnosis Essential hypertension Type 2 diabetes mellitus (HC CODE) Arthritis Hypothyroidism Palpitation Hyponatremia Spinal stenosis of lumbar region with neurogenic claudication Paroxysmal atrial fibrillation (HC CODE) Postoperative ileus (HC CODE) Paraparesis (HC CODE) Ataxia Cellulitis Peripheral vascular disease (HC CODE) Wound evaluation: Wound unchanged. Right plantar forefoot beneath base of great hallux is a small remaining tiny circular wound bed, pink and moist with scant overlying fibrous exudate. Thickened dry callus surrounding. Debrided to stimulate healing with callus paring. Mild serous type drainage. Wound Care recommendations: Debridement. Callus paring. To right plantar foot wound: Cleanse with saline. Pat dry thoroughly. Apply piece of silver alginate, cover with border foam. C shaped felt padding to help offload. Change three times a week and prn. Nutrition: Hemoglobin A1c on 06/27/2020 was 7.8. Patient works closely with PCP for diabetic management. States she is still compliant with her diabetic medications. Recommend tight glycemic control with emphasis on protein with meals. Offloading and Edema control: Elevate extremities at all times possible. Discussed with patient diabetic shoes and inserts. Hers are currently over 1 year and states she is supposed to get new one soon with podiatry service as of 03/10/2021. This is critical component for wound healing potential. Previously TCC was discussed with patient but declines due to unsafe gait. Infection: Denies pain, no increased drainage or erythema. No clinical signs of infection at this time. Circulation: ABIs 05/29/2018: Left 1.007, right 1.056. No acute concern for critical limb ischemia or vascular ischemic skin changes. Tissue perfusion adequate for healing. Weakly palpable distal pulses bilaterally. Wound Data: Wound Right Leg Medial Blister (bullae) (Active) Wound Right Foot Plantar Diabetic ulcer (neuropathic) (Active) Dressing Status / Change Moist with drainage 09/21/21 1000 Wound Bed Appearance Red;Other (Comment) 09/21/21 1000 Drainage Amount Scant 09/21/21 1000 Drainage Appearance Serosanguineous 09/21/21 1000 Odor None 09/21/21 1000 Wound cleanser Normal saline 09/21/21 1000 Specific Procedures Cultures 06/22/21 1000 Advanced Wound Intervention Other (Comment) 09/21/21 1043 Wound length (cm) 0.3 cm 09/21/21 1043 Wound width (cm) 0.4 cm 09/21/21 1043 Wound depth (cm) 0.05 cm 09/21/21 1043 Wound Surface Area (length x width) 0.12 09/21/21 1043 Undermining / Tunneling Yes 08/17/21 1000 Periwound (surrounding) tissue Calloused 09/21/21 1000 Topical Agents Zinc oxide 08/17/21 1044 Primary Dressing Alginate;Antimicrobial;Absorptive 08/31/21 1100 Secondary Dressing Foam Dressing-Silicone Boarder 08/31/21 1100 Excisional Debridement Procedure Note Site of debridement: left hallux Time out performed prior to treatment. Indication: Removal of nonviable tissue, fibrin, and exudates/slough Anesthesia: topical lidocaine per orders when needed Procedure: Excisional debridement was done using a scalpel and/or curette to remove the nonviable tissue and/or slough/exudates and fibrin after patient placed in a comfortable position. Nonexcisional debridement also done using 4x4 gauze and/or irrigation and/or cotton tip applicator. Level of Debridement: SQ Total area debrided (sqcm): 0.12 Response to procedure: satisfactory Complications: none Post debridement measurements done by RN and reviewed by myself Education regarding disease process, wound care, pressure relief and elevation discussed with patient today. Time spent with patient and patient care related issues in addition to coordination of patient's care with other physicians/agencies: Discharge Instructions were given to patient, significant other, caregiver, or DPOHC. Follow-up Follow-Up: 2 week Objective Vitals Signs: Visit Vitals BP 154/71 Pulse 75 Temp 98.7 F (37.1 C) Resp 16 OB Status Postmenopausal Smoking Status Former Smoker General Exam GENERAL: The patient is in no acute distress. Afebrile RESP: Nonlabored breathing. No distress. Normal respirations. ABD: benign, soft EXTREMITIES: Wound to right plantar forefoot as described above. Trace pedal edema. No cyanosis. Noerythema or warmth. Distal extremities dry. Medications and Allergies No outpatient medications have been marked as taking for the 09/21/21 encounter (Hospital Encounter)with [facility] 1. Allergies Allergen Reactions Tape 1"X5yd [Adhesive Tape] Rash Redness. Avoids. Prefers paper tape Labs: WBC COUNT Date Value Ref Range Status 02/09/2021 6.4 3.5 - 10.9 K/uL Final HEMOGLOBIN Date Value Ref Range Status 02/09/2021 12.8 11.2 - 15.7 G/DL Final HEMATOCRIT Date Value Ref Range Status 02/09/2021 38.5 34.0 - 49.0 % Final PLATELET COUNT Date Value Ref Range Status 02/09/2021 275 140 - 400 K/uL Final SODIUM Date Value Ref Range Status 02/09/2021 140 135 - 148 MEQ/L Final 10/21/2020 135 135 - 148 MEQ/L POTASSIUM Date Value Ref Range Status 02/09/2021 4.7 3.4 - 5.3 MEQ/L Final CHLORIDE Date Value Ref Range Status 02/09/2021 102 96 - 110 MEQ/L Final CARBON DIOXIDE Date Value Ref Range Status 02/09/2021 24 19 - 32 MEQ/L Final GLUCOSE Date Value Ref Range Status 02/09/2021 179 70 - 99 MG/DL Final Comment: (NOTE) The [place] [employer] recommends the following guidelines: MG/DL <100 = NORMAL GLUCOSE 100-125= IMPAIRED FASTING GLUCOSE >=126 = PROVISIONAL DIAGNOSIS OF DIABETES ADA Workgroup Report, Diabetic Care, volume 40August 2016 CREATININE Date Value Ref Range Status 02/09/2021 1.0 0.5 - 1.2 MG/DL Final BUN Date Value Ref Range Status 02/09/2021 29 3 - 29 MG/DL Final CALCIUM Date Value Ref Range Status 02/09/2021 10.2 8.5 - 10.5 MG/DL Final ALBUMIN, SERUM Date Value Ref Range Status 10/16/2020 2.9 3.5 - 5.2 GM/DL PROTHROMBIN TIME Date Value Ref Range Status 05/15/2019 13.0 11.7 - 13.9 SECONDS PARTIAL THROMBOPLASTIN TIME Date Value Ref Range Status 05/15/2019 23.3 24.5 - 35.2 SECONDS INR Date Value Ref Range Status 05/15/2019 1.0 0.9 - 1.1 Comment: MODERATE-INTENSITY WARFARIN THERAPY: 2.0-3.0 HIGHER-INTENSITY WARFARIN THERAPY: 3.0-4.0 HEMOGLOBIN A1C Date Value Ref Range Status 06/07/2021 7.4 4.0 - 6.0 % Final Comment: (NOTE) The [place] [employer] recommends the following Guidelines: 5.7-6.4% Indicates increased risk for diabetes (Prediabetes). >6.5% Diagnostic of diabetes. In the absence of unequivocal hyperglycemia, results should be confirmed by repeat test. <7% Glycemic recommendation for non adults with diabetes. [place] [employer], Standards of Medical Care in Diabetes, Volume 40; 2017 The patient's condition and plan of care have been explained to the patient and/or significant others. This explanation included risks and benefits, alternative forms of treatment and risk of non-treatment. Patient understands there is no guarantee or warranty as to results or cures. Patient and/or significant others or caregivers agree with the plan of care and demonstrate an understanding of their responsibilities as a member of their plan of care. Patient has been instructed to contact the Wound Care Center with any concerns that arise before their next visit. After Visit Summary (AVS) given to patient and signed by patient or DPOAHC. Electronically signed by: Tiffany Mcneal PA-C, 09/21/2021 10:54 AM documented in this encounterMemorial Health [id number] History of Present illness Narrative* Tiffany Mcneal PA-C - 08/31/2021 10:15 AM EST [facility] Wound Care Center 08/31/2021 Patient Name: Hanna Nelson : 1940 AGE: [age] year old GENDER: Female Chief Complaint/Reason for Visit Hanna Nelson is a 80 year old female who presents today for wound care. No new wound care complaints nor issues. Tolerating dressing changes well. No systemic complaints. Assessment/Dermatologic Exam/Plan Hanna Nelson is an 80-year-old female who is well-known to the wound center and returns again on 06/22/2021 for re opened right plantar dfu that has previously healed multiple times. Patient states the right plantar ulceration opened about a week ago around 06/15/2021, with serous drainage and has surrounding soft callus. On 06/21/2021 noted increased redness and pain, concerning for infection related to wound. She has been covering with dry sterile dressing. She states she follows with podiatry Dr Nichole, was supposed to get shoe insert at last visit. Assessment: Diabetic foot ulcer right plantar surface, Daniels 1, level severity fat layers exposed Right foot cellulitis-resolved DM hx Right charcot foot deformity Patient's Problem List Patient Active Problem List Diagnosis Essential hypertension Type 2 diabetes mellitus (HC CODE) Arthritis Hypothyroidism Palpitation Hyponatremia Spinal stenosis of lumbar region with neurogenic claudication Paroxysmal atrial fibrillation (HC CODE) Postoperative ileus (HC CODE) Paraparesis (HC CODE) Ataxia Cellulitis Peripheral vascular disease (HC CODE) Wound evaluation: Wound progressing. Right plantar forefoot beneath base of great hallux is a small remaining tiny circular wound bed, pink and moist with no overlying fibrous exudate. Less soft moist callus surrounding. Debrided to stimulate healing with some callus paring. Mild serous type drainage. Wound Care recommendations: Debridement. Callus paring. To right plantar foot wound: Cleanse with saline. Pat dry thoroughly. Apply piece of silver alginate, zinc paste to periwound, cover with border foam. C shaped felt padding to help offload. Change three times a week and prn. Nutrition: Hemoglobin A1c on 06/27/2020 was 7.8. Patient works closely with PCP for diabetic management. States she is still compliant with her diabetic medications. Recommend tight glycemic control with emphasis on protein with meals. Offloading and Edema control: Elevate extremities at all times possible. Discussed with patient diabetic shoes and inserts. Hers are currently over 1 year and states she is supposed to get new one soon with podiatry service as of 03/10/2021. This is critical component for wound healing potential. Previously TCC was discussed with patient but declines due to unsafe gait. Infection: Denies pain, no increased drainage or erythema. No clinical signs of infection at this time. Circulation: ABIs 05/29/2018: Left 1.007, right 1.056. No acute concern for critical limb ischemia or vascular ischemic skin changes. Tissue perfusion adequate for healing. Weakly palpable distal pulses bilaterally. Wound Data: Wound Right Leg Medial Blister (bullae) (Active) Wound Right Foot Plantar Diabetic ulcer (neuropathic) (Active) Dressing Status / Change Moist with drainage 08/31/21 1000 Wound Bed Appearance [place] 08/31/21 1000 Drainage Amount Moderate 08/31/21 1000 Drainage Appearance Serosanguineous 08/31/21 1000 Odor None 08/31/21 1000 Wound cleanser Normal saline 08/31/21 1000 Specific Procedures Cultures 06/22/21 1000 Advanced Wound Intervention Photos 08/03/21 1051 Wound length (cm) 0.3 cm 08/31/21 1100 Wound width (cm) 0.3 cm 08/31/21 1100 Wound depth (cm) 0.15 cm 08/31/21 1100 Wound Surface Area (length x width) 0.09 08/31/21 1100 Undermining / Tunneling Yes 08/17/21 1000 Periwound (surrounding) tissue Calloused 08/31/21 1000 Topical Agents Zinc oxide 08/17/21 1044 Primary Dressing Alginate;Antimicrobial;Absorptive 08/31/21 1100 Secondary Dressing Foam Dressing-Silicone Boarder 08/31/21 1100 Excisional Debridement Procedure Note Site of debridement: left hallux Time out performed prior to treatment. Indication: Removal of nonviable tissue, fibrin, and exudates/slough Anesthesia: topical lidocaine per orders when needed Procedure: Excisional debridement was done using a scalpel and/or curette to remove the nonviable tissue and/or slough/exudates and fibrin after patient placed in a comfortable position. Nonexcisional debridement also done using 4x4 gauze and/or irrigation and/or cotton tip applicator. Level of Debridement: SQ Total area debrided (sqcm): 0.09 Response to procedure: satisfactory Complications: none Post debridement measurements done by RN and reviewed by myself Education regarding disease process, wound care, pressure relief and elevation discussed with patient today. Time spent with patient and patient care related issues in addition to coordination of patient's care with other physicians/agencies: Discharge Instructions were given to patient, significant other, caregiver, or DPOHC. Follow-up Follow-Up: 2 week Objective Vitals Signs: Visit Vitals BP 161/73 Pulse 69 Temp 98.4 F (36.9 C) Resp 16 OB Status Postmenopausal Smoking Status Former Smoker General Exam GENERAL: The patient is in no acute distress. Afebrile RESP: Nonlabored breathing. No distress. Normal respirations. ABD: benign, soft EXTREMITIES: Wound to right plantar forefoot as described above. Trace pedal edema. No cyanosis. Noerythema or warmth. Distal extremities dry. Medications and Allergies No outpatient medications have been marked as taking for the 08/31/21 encounter (Hospital Encounter)with [facility] 1. Allergies Allergen Reactions Tape 1"X5yd [Adhesive Tape] Rash Redness. Avoids. Prefers paper tape Labs: WBC COUNT Date Value Ref Range Status 02/09/2021 6.4 3.5 - 10.9 K/uL Final HEMOGLOBIN Date Value Ref Range Status 02/09/2021 12.8 11.2 - 15.7 G/DL Final HEMATOCRIT Date Value Ref Range Status 02/09/2021 38.5 34.0 - 49.0 % Final PLATELET COUNT Date Value Ref Range Status 02/09/2021 275 140 - 400 K/uL Final SODIUM Date Value Ref Range Status 02/09/2021 140 135 - 148 MEQ/L Final 10/21/2020 135 135 - 148 MEQ/L POTASSIUM Date Value Ref Range Status 02/09/2021 4.7 3.4 - 5.3 MEQ/L Final CHLORIDE Date Value Ref Range Status 02/09/2021 102 96 - 110 MEQ/L Final CARBON DIOXIDE Date Value Ref Range Status 02/09/2021 24 19 - 32 MEQ/L Final GLUCOSE Date Value Ref Range Status 02/09/2021 179 70 - 99 MG/DL Final Comment: (NOTE) The [place] [employer] recommends the following guidelines: MG/DL <100 = NORMAL GLUCOSE 100-125= IMPAIRED FASTING GLUCOSE >=126 = PROVISIONAL DIAGNOSIS OF DIABETES ADA Workgroup Report, Diabetic Care, volume 40August 2016 CREATININE Date Value Ref Range Status 02/09/2021 1.0 0.5 - 1.2 MG/DL Final BUN Date Value Ref Range Status 02/09/2021 29 3 - 29 MG/DL Final CALCIUM Date Value Ref Range Status 02/09/2021 10.2 8.5 - 10.5 MG/DL Final ALBUMIN, SERUM Date Value Ref Range Status 10/16/2020 2.9 3.5 - 5.2 GM/DL PROTHROMBIN TIME Date Value Ref Range Status 05/15/2019 13.0 11.7 - 13.9 SECONDS PARTIAL THROMBOPLASTIN TIME Date Value Ref Range Status 05/15/2019 23.3 24.5 - 35.2 SECONDS INR Date Value Ref Range Status 05/15/2019 1.0 0.9 - 1.1 Comment: MODERATE-INTENSITY WARFARIN THERAPY: 2.0-3.0 HIGHER-INTENSITY WARFARIN THERAPY: 3.0-4.0 HEMOGLOBIN A1C Date Value Ref Range Status 06/07/2021 7.4 4.0 - 6.0 % Final Comment: (NOTE) The [place] [employer] recommends the following Guidelines: 5.7-6.4% Indicates increased risk for diabetes (Prediabetes). >6.5% Diagnostic of diabetes. In the absence of unequivocal hyperglycemia, results should be confirmed by repeat test. <7% Glycemic recommendation for non adults with diabetes. [place] [employer], Standards of Medical Care in Diabetes, Volume 40; 2017 The patient's condition and plan of care have been explained to the patient and/or significant others. This explanation included risks and benefits, alternative forms of treatment and risk of non-treatment. Patient understands there is no guarantee or warranty as to results or cures. Patient and/or significant others or caregivers agree with the plan of care and demonstrate an understanding of their responsibilities as a member of their plan of care. Patient has been instructed to contact the Wound Care Center with any concerns that arise before their next visit. After Visit Summary (AVS) given to patient and signed by patient or DPOAHC. Electronically signed by: Tiffany Mcneal PA-C, 08/31/2021 1:37 PM documented in this encounterMemorial Health [id number] Hospital Discharge instructions* Instructions* Katey Herrera RN - 08/30/2021 You have been treated at [facility] for reasons of wound healing. WOUND CARE: With Dressing Changes - wash your hands prior to starting and after you finish and dispose of old materials properly. The following wound care procedure has been ordered for you in treating your wound: Wound location: Right Plantar Foot Cleanse with: wound cleanser Zinc paste to periwound, C felt offloading pad Apply to wound: double silver alginate Ag Secure with: borderfoam Change Dressinx/week Return: 2 week SPECIAL INSTRUCTIONS: Nutrition: Increase dietary protein intake as instructed. Foot Wear: Follow specialty footwear instructions as advised. Off loading/Pressure Reduce: PRECAUTIONS: If any of the following occur, contact [phone] immediately or go to your nearest emergency room!! Fever over 101 degrees Increase in drainage Redness around wound and/or streaking Odor or drainage Increase in pain Increased swelling Bleeding Need for compression bandage changes (slippage, breakthrough drainage) IF YOU ARE A DIABETIC: Gently dry well including between your toes Inspect feet/legs DAILY for skin problems, blisters, etc. Wear socks/stockings at all times Tell us if you need assistance putting on your socks or shoes Elevate your feet often, if swelling reaches your legs Wear compression garments as instructed Call us if you are sick, have a cold or flu HOME MEDICATIONS AT DISCHARGE Warning, if you take acetaminophen products: No more than 3Gms or 3000mg of acetaminophen (Tylenol)should be taken daily (eg. 6 extra-strength Tylenol). Be aware that multiple medications contain tylenol products(eg.vicodin, lortab, percocet, darvocet, and nonaspirin pain relievers). FUTURE VISIT INFORMATION: Call us if you are unable to come, leave a message if unable to speak to a staff member Every effort will be made to keep your scheduled appointment, [facility] care. In that case we will reschedule your treatments as soon as possible. Your signature verifies that we have reviewed this document and that you understand the importance of the information above and acknowledge receipt of same. Failure to comply with these reminders mayresult in delay of your care and/or termination of treatment. If you have any questions, please call us at [phone] documented in this encounterMemorial Health [id number] History of Present illness Narrative* Tiffany Mcneal PA-C - 08/17/2021 10:15 AM EST [facility] 08/17/2021 Patient Name: Hanna Nelson : 1940 AGE: [age] year old GENDER: Female Chief Complaint/Reason for Visit Hanna Nelson is a 80 year old female who presents today for wound care. No new wound care complaints nor issues. Tolerating dressing changes well. No systemic complaints. Assessment/Dermatologic Exam/Plan Hanna Nelson is an 80-year-old female who is well-known to the wound center and returns again on 06/22/2021 for re opened right plantar dfu that has previously healed multiple times. Patient statesthe right plantar ulceration opened about a week ago around 06/15/2021, with serous drainage and has surrounding soft callus. On 06/21/2021 noted increased redness and pain, concerning for infection related to wound. She has been covering with dry sterile dressing. She states she follows with podiatry Dr Nichole, was supposed to get shoe insert at last visit. Assessment: Diabetic foot ulcer right plantar surface, Daniels 1, level severity fat layers exposed Right foot cellulitis-resolved DM hx Right charcot foot deformity Patient's Problem List Patient Active Problem List Diagnosis Essential hypertension Type 2 diabetes mellitus (HC CODE) Arthritis Hypothyroidism Palpitation Hyponatremia Spinal stenosis of lumbar region with neurogenic claudication Paroxysmal atrial fibrillation (HC CODE) Postoperative ileus (HC CODE) Paraparesis (HC CODE) Ataxia Cellulitis Peripheral vascular disease (HC CODE) Wound evaluation: Right plantar forefoot beneath base of great hallux is a small remaining tiny circular superficial wound bed, pink and moist with no overlying fibrous exudate. Overlying most of wound bed and situated more laterally is white soft circular callus formation with overlying and surrounding denuded skin. Moderate drainage. Alginate dressing was not in place during intake. Wound Care recommendations: Debridement. Callus paring. To right plantar foot wound: Cleanse with saline. Pat dry thoroughly. Apply double silver alginate,zinc paste to periwound, cover with border foam. C shaped felt padding to help offload. Change three times a week and prn. Nutrition: Hemoglobin A1c on 06/27/2020 was 7.8. Patient works closely with PCP for diabetic management. States she is still compliant with her diabetic medications. Recommend tight glycemic control with emphasis on protein with meals. Offloading and Edema control: Elevate extremities at all times possible. Discussed with patient diabetic shoes and inserts. Hers are currently over 1 year and states she is supposed to get new one soon with podiatry service as of 03/10/2021. This is critical component for wound healing potential. Previously TCC was discussed with patient but declines due to unsafe gait. Infection: Denies pain, no increased drainage or erythema. No clinical signs of infection at this time. Circulation: ABIs 05/29/2018: Left 1.007, right 1.056. No acute concern for critical limb ischemia or vascular ischemic skin changes. Tissue perfusion adequate for healing. Weakly palpable distal pulses bilaterally. Wound Data: Wound Right Leg Medial Blister (bullae) (Active) Wound Right Foot Plantar Diabetic ulcer (neuropathic) (Active) Dressing Status / Change Moist with drainage 08/17/21 1000 Wound Bed Appearance [place] 08/17/21 1000 Drainage Amount Moderate 08/17/21 1000 Drainage Appearance Bloody 08/17/21 1000 Odor None 08/17/21 1000 Wound cleanser Normal saline 08/17/21 1000 Specific Procedures Cultures 06/22/21 1000 Advanced Wound Intervention Photos 08/03/21 1051 Wound length (cm) 0.4 cm 08/17/21 1044 Wound width (cm) 0.4 cm 08/17/21 1044 Wound depth (cm) 0.35 cm 08/17/21 1044 Wound Surface Area (length x width) 0.16 08/17/21 1044 Undermining / Tunneling Yes 08/17/21 1000 Periwound (surrounding) tissue Macerated;Calloused 08/17/21 1000 Topical Agents Zinc oxide 08/17/21 1044 Primary Dressing Antimicrobial;Alginate 08/17/21 1044 Secondary Dressing Foam Dressing-Silicone Boarder;Other (Comment) 08/17/21 1044 Excisional Debridement Procedure Note Site of debridement: left hallux Time out performed prior to treatment. Indication: Removal of nonviable tissue, fibrin, and exudates/slough Anesthesia: topical lidocaine per orders when needed Procedure: Excisional debridement was done using a scalpel and/or curette to remove the nonviable tissue and/or slough/exudates and fibrin after patient placed in a comfortable position. Nonexcisional debridement also done using 4x4 gauze and/or irrigation and/or cotton tip applicator. Level of Debridement: open Total area debrided (sqcm): 0.16 Response to procedure: satisfactory Complications: none Post debridement measurements done by RN and reviewed by myself Education regarding disease process, wound care, pressure relief and elevation discussed with patient today. Time spent with patient and patient care related issues in addition to coordination of patient's care with other physicians/agencies: Discharge Instructions were given to patient, significant other, caregiver, or DPOHC. Follow-up Follow-Up: 2 week Objective Vitals Signs: Visit Vitals BP 183/83 Pulse 77 Temp 98.3 F (36.8 C) Resp 16 OB Status Postmenopausal Smoking Status Former Smoker General Exam GENERAL: The patient is in no acute distress. Afebrile RESP: Nonlabored breathing. No distress. Normal respirations. ABD: benign, soft EXTREMITIES: Wound to right plantar forefoot as described above. Trace pedal edema. No cyanosis. Resolved warmth and erythematous skin changes to left dorsal foot/distal ankle. Distal extremities dry. Medications and Allergies No outpatient medications have been marked as taking for the 08/17/21 encounter (Hospital Encounter) with [facility]. Allergies Allergen Reactions Tape 1"X5yd [Adhesive Tape] Rash Redness. Avoids. Prefers paper tape Labs: WBC COUNT Date Value Ref Range Status 02/09/2021 6.4 3.5 - 10.9 K/uL Final HEMOGLOBIN Date Value Ref Range Status 02/09/2021 12.8 11.2 - 15.7 G/DL Final HEMATOCRIT Date Value Ref Range Status 02/09/2021 38.5 34.0 - 49.0 % Final PLATELET COUNT Date Value Ref Range Status 02/09/2021 275 140 - 400 K/uL Final SODIUM Date Value Ref Range Status 02/09/2021 140 135 - 148 MEQ/L Final 10/21/2020 135 135 - 148 MEQ/L POTASSIUM Date Value Ref Range Status 02/09/2021 4.7 3.4 - 5.3 MEQ/L Final CHLORIDE Date Value Ref Range Status 02/09/2021 102 96 - 110 MEQ/L Final CARBON DIOXIDE Date Value Ref Range Status 02/09/2021 24 19 - 32 MEQ/L Final GLUCOSE Date Value Ref Range Status 02/09/2021 179 70 - 99 MG/DL Final Comment: (NOTE) The [place] [employer] recommends the following guidelines: MG/DL <100 = NORMAL GLUCOSE 100-125= IMPAIRED FASTING GLUCOSE >=126 = PROVISIONAL DIAGNOSIS OF DIABETES ADA Workgroup Report, Diabetic Care, volume 40August 2016 CREATININE Date Value Ref Range Status 02/09/2021 1.0 0.5 - 1.2 MG/DL Final BUN Date Value Ref Range Status 02/09/2021 29 3 - 29 MG/DL Final CALCIUM Date Value Ref Range Status 02/09/2021 10.2 8.5 - 10.5 MG/DL Final ALBUMIN, SERUM Date Value Ref Range Status 10/16/2020 2.9 3.5 - 5.2 GM/DL PROTHROMBIN TIME Date Value Ref Range Status 05/15/2019 13.0 11.7 - 13.9 SECONDS PARTIAL THROMBOPLASTIN TIME Date Value Ref Range Status 05/15/2019 23.3 24.5 - 35.2 SECONDS INR Date Value Ref Range Status 05/15/2019 1.0 0.9 - 1.1 Comment: MODERATE-INTENSITY WARFARIN THERAPY: 2.0-3.0 HIGHER-INTENSITY WARFARIN THERAPY: 3.0-4.0 HEMOGLOBIN A1C Date Value Ref Range Status 06/07/2021 7.4 4.0 - 6.0 % Final Comment: (NOTE) The [place] [employer] recommends the following Guidelines: 5.7-6.4% Indicates increased risk for diabetes (Prediabetes). >6.5% Diagnostic of diabetes. In the absence of unequivocal hyperglycemia, results should be confirmed by repeat test. <7% Glycemic recommendation for non adults with diabetes. [place] [employer], Standards of Medical Care in Diabetes, Volume 40; 2017 The patient's condition and plan of care have been explained to the patient and/or significant others. This explanation included risks and benefits, alternative forms of treatment and risk of non-treatment. Patient understands there is no guarantee or warranty as to results or cures. Patient and/or significant others or caregivers agree with the plan of care and demonstrate an understanding of their responsibilities as a member of their plan of care. Patient has been instructed to contact the Wound Care Center with any concerns that arise before their next visit. After Visit Summary (AVS) given to patient and signed by patient or DPOAHC. Electronically signed by: Tiffany Mcneal PA-C, 08/17/2021 12:20 PM documented in this [facility]01-06-2022 Miscellaneous Notes* Care Plan - Katey Herrera RN - 08/17/2021 10:15 AM EST Progressing. documented in this encounterMemorial Health [id number] Hospital Discharge instructions* Instructions* Katey Herrera RN - 08/16/2021 You have been treated at [facility] for reasons of wound healing. WOUND CARE: With Dressing Changes - wash your hands prior to starting and after you finish and dispose of old materials properly. The following wound care procedure has been ordered for you in treating your wound: Wound location: Right Plantar Foot Cleanse with: wound cleanser Zinc paste to periwound, C felt offloading pad Apply to wound: double silver alginate Ag Secure with: borderfoam Change Dressinx/week Return: 2 week SPECIAL INSTRUCTIONS: Nutrition: Increase dietary protein intake as instructed. Foot Wear: Follow specialty footwear instructions as advised. Off loading/Pressure Reduce: PRECAUTIONS: If any of the following occur, contact [phone] immediately or go to your nearest emergency room!! Fever over 101 degrees Increase in drainage Redness around wound and/or streaking Odor or drainage Increase in pain Increased swelling Bleeding Need for compression bandage changes (slippage, breakthrough drainage) IF YOU ARE A DIABETIC: Gently dry well including between your toes Inspect feet/legs DAILY for skin problems, blisters, etc. Wear socks/stockings at all times Tell us if you need assistance putting on your socks or shoes Elevate your feet often, if swelling reaches your legs Wear compression garments as instructed Call us if you are sick, have a cold or flu HOME MEDICATIONS AT DISCHARGE Warning, if you take acetaminophen products: No more than 3Gms or 3000mg of acetaminophen (Tylenol)should be taken daily (eg. 6 extra-strength Tylenol). Be aware that multiple medications contain tylenol products(eg.vicodin, lortab, percocet, darvocet, and nonaspirin pain relievers). FUTURE VISIT INFORMATION: Call us if you are unable to come, leave a message if unable to speak to a staff member Every effort will be made to keep your scheduled appointment, [facility] In that case we will reschedule your treatments as soon as possible. Your signature verifies that we have reviewed this document and that you understand the importance of the information above and acknowledge receipt of same. Failure to comply with these reminders mayresult in delay of your care and/or termination of treatment. If you have any questions, please call us at [phone] documented in this encounterMemorial Health [id number] History of Present illness Narrative* Tiffany Mcneal PA-C - 08/03/2021 10:15 AM EST [facility] Wound Care Center 08/03/21 Patient Name: Hanna Nelson : 1940 AGE: [age] year old GENDER: Female Chief Complaint/Reason for Visit Hanna Nelson is a 80 year old female who presents today for wound care. No new wound care complaints nor issues. Tolerating dressing changes well. No systemic complaints. Assessment/Dermatologic Exam/Plan Hanna Nelson is an 80-year-old female who is well-known to the wound center and returns again on 06/22/2021 for re opened right plantar dfu that has previously healed multiple times. Patient statesthe right plantar ulceration opened about a week ago around 06/15/2021, with serous drainage and has surrounding soft callus. On 06/21/2021 noted increased redness and pain, concerning for infection related to wound. She has been covering with dry sterile dressing. She states she follows with podiatry Dr Nichole, was supposed to get shoe insert at last visit. Assessment: Diabetic foot ulcer right plantar surface, Daniels 1, level severity fat layers exposed Right foot cellulitis-resolved DM hx Right charcot foot deformity Patient's Problem List Patient Active Problem List Diagnosis Essential hypertension Type 2 diabetes mellitus (HC CODE) Arthritis Hypothyroidism Palpitation Hyponatremia Spinal stenosis of lumbar region with neurogenic claudication Paroxysmal atrial fibrillation (HC CODE) Postoperative ileus (HC CODE) Paraparesis (HC CODE) Ataxia Cellulitis Peripheral vascular disease (HC CODE) Wound evaluation: Wound size rather unchanged this visit, marginal increase, patient states she hasbeen on her feet a lot lately with granddaughter wedding. Right plantar forefoot beneath base of great hallux there is a small pinpoint area of pink hypergranulation, edges attached no erythema or fluctuance, dry surrounding callus formation, pared today. Wound Care recommendations: Debridement. Callus paring. To right plantar foot wound: Cleanse with saline. Pat dry thoroughly. Apply silver alginate, cover with border foam. C shaped felt padding to help offload. Change three times a week and prn. Nutrition: Hemoglobin A1c on 06/27/2020 was 7.8. Patient works closely with PCP for diabetic management. States she is still compliant with her diabetic medications. Recommend tight glycemic control with emphasis on protein with meals. Offloading and Edema control: Elevate extremities at all times possible. Discussed with patient diabetic shoes and inserts. Hers are currently over 1 year and states she is supposed to get new one soon with podiatry service as of 03/10/2021. This is critical component for wound healing potential. Previously TCC was discussed with patient but declines due to unsafe gait. Infection: Denies pain, no increased drainage or erythema. No clinical signs of infection at this time. Circulation: ABIs 05/29/2018: Left 1.007, right 1.056. No acute concern for critical limb ischemia or vascular ischemic skin changes. Tissue perfusion adequate for healing. Weakly palpable distal pulses bilaterally. Wound Data: Wound Right Leg Medial Blister (bullae) (Active) Wound Right Foot Plantar Diabetic ulcer (neuropathic) (Active) Dressing Status / Change Dried drainage 08/03/21 1000 Wound Bed Appearance [place] 08/03/21 1000 Drainage Amount Small 08/03/21 1000 Drainage Appearance Serosanguineous 08/03/21 1000 Odor None 08/03/21 1000 Wound cleanser Normal saline 08/03/21 1000 Specific Procedures Cultures 06/22/21 1000 Advanced Wound Intervention Photos 08/03/21 1051 Wound length (cm) 0.5 cm 08/03/21 1051 Wound width (cm) 0.4 cm 08/03/21 1051 Wound depth (cm) 0.1 cm 08/03/21 1051 Wound Surface Area (length x width) 0.2 08/03/21 1051 Periwound (surrounding) tissue Calloused 08/03/21 1000 Topical Agents Zinc oxide 06/29/21 1043 Primary Dressing Antimicrobial;Alginate 08/03/21 1051 Secondary Dressing Foam Dressing-Silicone Boarder 08/03/21 1051 Excisional Debridement Procedure Note Site of debridement: left hallux Time out performed prior to treatment. Indication: Removal of nonviable tissue, fibrin, and exudates/slough Anesthesia: topical lidocaine per orders when needed Procedure: Excisional debridement was done using a scalpel and/or curette to remove the nonviable tissue and/or slough/exudates and fibrin after patient placed in a comfortable position. Nonexcisional debridement also done using 4x4 gauze and/or irrigation and/or cotton tip applicator. Level of Debridement: open Total area debrided (sqcm): 0.2 Response to procedure: satisfactory Complications: none Post debridement measurements done by RN and reviewed by myself Education regarding disease process, wound care, pressure relief and elevation discussed with patient today. Time spent with patient and patient care related issues in addition to coordination of patient's care with other physicians/agencies: Discharge Instructions were given to patient, significant other, caregiver, or DPOHC. Follow-up Follow-Up: 2 week Objective Vitals Signs: Visit Vitals BP 143/74 Pulse 73 Temp 97.9 F (36.6 C) Resp 16 OB Status Postmenopausal Smoking Status Former Smoker General Exam GENERAL: The patient is in no acute distress. Afebrile RESP: Nonlabored breathing. No distress. Normal respirations. ABD: benign, soft EXTREMITIES: Wound to right plantar forefoot as described above. Trace pedal edema. No cyanosis. Resolved warmth and erythematous skin changes to left dorsal foot/distal ankle. Distal extremities dry. Medications and Allergies No outpatient medications have been marked as taking for the 08/03/21 encounter (Hospital Encounter) with [facility] 1. Allergies Allergen Reactions Tape 1"X5yd [Adhesive Tape] Rash Redness. Avoids. Prefers paper tape Labs: WBC COUNT Date Value Ref Range Status 02/09/2021 6.4 3.5 - 10.9 K/uL Final HEMOGLOBIN Date Value Ref Range Status 02/09/2021 12.8 11.2 - 15.7 G/DL Final HEMATOCRIT Date Value Ref Range Status 02/09/2021 38.5 34.0 - 49.0 % Final PLATELET COUNT Date Value Ref Range Status 02/09/2021 275 140 - 400 K/uL Final SODIUM Date Value Ref Range Status 02/09/2021 140 135 - 148 MEQ/L Final 10/21/2020 135 135 - 148 MEQ/L POTASSIUM Date Value Ref Range Status 02/09/2021 4.7 3.4 - 5.3 MEQ/L Final CHLORIDE Date Value Ref Range Status 02/09/2021 102 96 - 110 MEQ/L Final CARBON DIOXIDE Date Value Ref Range Status 02/09/2021 24 19 - 32 MEQ/L Final GLUCOSE Date Value Ref Range Status 02/09/2021 179 70 - 99 MG/DL Final Comment: (NOTE) The [place] [employer] recommends the following guidelines: MG/DL <100 = NORMAL GLUCOSE 100-125= IMPAIRED FASTING GLUCOSE >=126 = PROVISIONAL DIAGNOSIS OF DIABETES ADA Workgroup Report, Diabetic Care, volume 40August 2016 CREATININE Date Value Ref Range Status 02/09/2021 1.0 0.5 - 1.2 MG/DL Final BUN Date Value Ref Range Status 02/09/2021 29 3 - 29 MG/DL Final CALCIUM Date Value Ref Range Status 02/09/2021 10.2 8.5 - 10.5 MG/DL Final ALBUMIN, SERUM Date Value Ref Range Status 10/16/2020 2.9 3.5 - 5.2 GM/DL PROTHROMBIN TIME Date Value Ref Range Status 05/15/2019 13.0 11.7 - 13.9 SECONDS PARTIAL THROMBOPLASTIN TIME Date Value Ref Range Status 05/15/2019 23.3 24.5 - 35.2 SECONDS INR Date Value Ref Range Status 05/15/2019 1.0 0.9 - 1.1 Comment: MODERATE-INTENSITY WARFARIN THERAPY: 2.0-3.0 HIGHER-INTENSITY WARFARIN THERAPY: 3.0-4.0 HEMOGLOBIN A1C Date Value Ref Range Status 06/07/2021 7.4 4.0 - 6.0 % Final Comment: (NOTE) The [place] [employer] recommends the following Guidelines: 5.7-6.4% Indicates increased risk for diabetes (Prediabetes). >6.5% Diagnostic of diabetes. In the absence of unequivocal hyperglycemia, results should be confirmed by repeat test. <7% Glycemic recommendation for non adults with diabetes. [place] [employer], Standards of Medical Care in Diabetes, Volume 40; 2017 The patient's condition and plan of care have been explained to the patient and/or significant others. This explanation included risks and benefits, alternative forms of treatment and risk of non-treatment. Patient understands there is no guarantee or warranty as to results or cures. Patient and/or significant others or caregivers agree with the plan of care and demonstrate an understanding of their responsibilities as a member of their plan of care. Patient has been instructed to contact the Wound Care Center with any concerns that arise before their next visit. After Visit Summary (AVS) given to patient and signed by patient or DPOAHC. Electronically signed by: Tiffany Mcneal PA-C, 08/03/2021 11:08 AM documented in this encounterMemorial Health [id number] Miscellaneous Notes* Care Plan - Katey Herrera RN - 08/03/2021 10:15 AM EST Progressing. documented in this [facility]12-21-2021 Hospital Discharge instructions* Instructions* Katey Herrera RN - 08/01/2021 You have been treated at [facility] for reasons of wound healing. WOUND CARE: With Dressing Changes - wash your hands prior to starting and after you finish and dispose of old materials properly. The following wound care procedure has been ordered for you in treating your wound: Wound location: Right Plantar Foot Cleanse with: wound cleanser Apply to wound: alginate Ag Secure with: borderfoam Change Dressinx/week Return: 2 week SPECIAL INSTRUCTIONS: Nutrition: Increase dietary protein intake as instructed. Foot Wear: Follow specialty footwear instructions as advised. Off loading/Pressure Reduce: PRECAUTIONS: If any of the following occur, contact [phone] immediately or go to your nearest emergency room!! Fever over 101 degrees Increase in drainage Redness around wound and/or streaking Odor or drainage Increase in pain Increased swelling Bleeding Need for compression bandage changes (slippage, breakthrough drainage) IF YOU ARE A DIABETIC: Gently dry well including between your toes Inspect feet/legs DAILY for skin problems, blisters, etc. Wear socks/stockings at all times Tell us if you need assistance putting on your socks or shoes Elevate your feet often, if swelling reaches your legs Wear compression garments as instructed Call us if you are sick, have a cold or flu HOME MEDICATIONS AT DISCHARGE Warning, if you take acetaminophen products: No more than 3Gms or 3000mg of acetaminophen (Tylenol)should be taken daily (eg. 6 extra-strength Tylenol). Be aware that multiple medications contain tylenol products(eg.vicodin, lortab, percocet, darvocet, and nonaspirin pain relievers). FUTURE VISIT INFORMATION: Call us if you are unable to come, leave a message if unable to speak to a staff member Every effort will be made to keep your scheduled appointment, occasionally [facility]. In that case we will reschedule your treatments as soon as possible. Your signature verifies that we have reviewed this document and that you understand the importance of the information above and acknowledge receipt of same. Failure to comply with these reminders mayresult in delay of your care and/or termination of treatment. If you have any questions, please call us at [phone] documented in this encounterMemorial Health [id number] History of Present illness Narrative* FeirBella APRN - 07/20/2021 10:15 AM EST [facility] Wound Care Center 07/13/21 Patient Name: Hanna Nelson : 1940 AGE: [age] year old GENDER: Female Chief Complaint/Reason for Visit Hanna Nelson is a 80 year old female who presents today for wound care. No new wound care complaints nor issues. Tolerating dressing changes well. No systemic complaints. Assessment/Dermatologic Exam/Plan Hanna Nelson is an 80-year-old female who is well-known to the wound center and returns again on 06/22/2021 for re opened right plantar dfu that has previously healed multiple times. Patient statesthe right plantar ulceration opened about a week ago around 06/15/2021, with serous drainage and has surrounding soft callus. On 06/21/2021 noted increased redness and pain, concerning for infection related to wound. She has been covering with dry sterile dressing. She states she follows with podiatry Dr Nichole, was supposed to get shoe insert at last visit. Patient is new to me today, Wound remains pinpoint and slightly hypergranular. Assessment: Diabetic foot ulcer right plantar surface, Daniels 1, level severity fat layers exposed Right foot cellulitis-resolved DM hx Right charcot foot deformity Patient's Problem List Patient Active Problem List Diagnosis Essential hypertension Type 2 diabetes mellitus (HC CODE) Arthritis Hypothyroidism Palpitation Hyponatremia Spinal stenosis of lumbar region with neurogenic claudication Paroxysmal atrial fibrillation (HC CODE) Postoperative ileus (HC CODE) Paraparesis (HC CODE) Ataxia Cellulitis Peripheral vascular disease (HC CODE) Wound evaluation: Right plantar forefoot beneath base of great hallux there is a small pinpoint area of pink hypergranulation, edges attached no erythema or fluctuance Wound Care recommendations: No debridement. Silver nitrate applied to hypergranulation One stick of sliver nitrate applied to wound bed to form a silver scab, no bleeding or pain patienttolerated well To right plantar foot wound: Cleanse with saline. Pat dry thoroughly. Apply silver alginate, cover with border foam. Change three times a week and prn. Nutrition: Hemoglobin A1c on 06/27/2020 was 7.8. Patient works closely with PCP for diabetic management. States she is still compliant with her diabetic medications. Recommend tight glycemic control with emphasis on protein with meals. Offloading and Edema control: Elevate extremities at all times possible. Discussed with patient diabetic shoes and inserts. Hers are currently over 1 year and states she is supposed to get new one soon with podiatry service as of 03/10/2021. This is critical component for wound healing potential. Previously TCC was discussed with patient but declines due to unsafe gait. Infection: Denies pain, no increased drainage or erythema. No clinical signs of infection at this time. Circulation: ABIs 05/29/2018: Left 1.007, right 1.056. No acute concern for critical limb ischemia or vascular ischemic skin changes. Tissue perfusion adequate for healing. Weakly palpable distal pulses bilaterally. Wound Data: Wound Right Leg Medial Blister (bullae) (Active) Wound Right Foot Plantar Diabetic ulcer (neuropathic) (Active) Dressing Status / Change Dried drainage 07/20/21 1000 Wound Bed Appearance [place] 07/20/21 1000 Drainage Amount Small 07/20/21 1000 Drainage Appearance Serosanguineous 07/20/21 1000 Odor None 07/20/21 1000 Wound cleanser Normal saline 07/20/21 1000 Specific Procedures Cultures 06/22/21 1000 Advanced Wound Intervention Other (Comment) 07/20/21 1000 Wound length (cm) 0.1 cm 07/20/21 1000 Wound width (cm) 0.1 cm 07/20/21 1000 Wound depth (cm) 0.05 cm 07/20/21 1000 Wound Surface Area (length x width) 0.01 07/20/21 1000 Periwound (surrounding) tissue Calloused 07/20/21 1000 Topical Agents Zinc oxide 06/29/21 1043 Primary Dressing Alginate 07/13/21 0900 Secondary Dressing Foam Dressing-Silicone Boarder 07/13/21 0900 Pressure Ulcer Data:. Education regarding disease process, wound care, pressure relief and elevation discussed with patient today. Time spent with patient and patient care related issues in addition to coordination of patient's care with other physicians/agencies: Discharge Instructions were given to patient, significant other, caregiver, or DPOHC. Follow-up Follow-Up: 1 week ICD 10 L97.512 E11.9 Objective Vitals Signs: Visit Vitals BP 148/71 Pulse 76 Temp 98.6 F (37 C) Resp 16 OB Status Postmenopausal Smoking Status Former Smoker General Exam GENERAL: The patient is in no acute distress. Afebrile RESP: Nonlabored breathing. No distress. Normal respirations. ABD: benign, soft EXTREMITIES: Wound to right plantar forefoot as described above. Trace pedal edema. No cyanosis. Resolved warmth and erythematous skin changes to left dorsal foot/distal ankle. Distal extremities dry. Medications and Allergies No outpatient medications have been marked as taking for the 07/20/21 encounter (Hospital Encounter)with [facility]. Allergies Allergen Reactions Tape 1"X5yd [Adhesive Tape] Rash Redness. Avoids. Prefers paper tape Labs: WBC COUNT Date Value Ref Range Status 02/09/2021 6.4 3.5 - 10.9 K/uL Final HEMOGLOBIN Date Value Ref Range Status 02/09/2021 12.8 11.2 - 15.7 G/DL Final HEMATOCRIT Date Value Ref Range Status 02/09/2021 38.5 34.0 - 49.0 % Final PLATELET COUNT Date Value Ref Range Status 02/09/2021 275 140 - 400 K/uL Final SODIUM Date Value Ref Range Status 02/09/2021 140 135 - 148 MEQ/L Final 10/21/2020 135 135 - 148 MEQ/L POTASSIUM Date Value Ref Range Status 02/09/2021 4.7 3.4 - 5.3 MEQ/L Final CHLORIDE Date Value Ref Range Status 02/09/2021 102 96 - 110 MEQ/L Final CARBON DIOXIDE Date Value Ref Range Status 02/09/2021 24 19 - 32 MEQ/L Final GLUCOSE Date Value Ref Range Status 02/09/2021 179 70 - 99 MG/DL Final Comment: (NOTE) The [place] [employer] recommends the following guidelines: MG/DL <100 = NORMAL GLUCOSE 100-125= IMPAIRED FASTING GLUCOSE >=126 = PROVISIONAL DIAGNOSIS OF DIABETES ADA Workgroup Report, Diabetic Care, volume 40August 2016 CREATININE Date Value Ref Range Status 02/09/2021 1.0 0.5 - 1.2 MG/DL Final BUN Date Value Ref Range Status 02/09/2021 29 3 - 29 MG/DL Final CALCIUM Date Value Ref Range Status 02/09/2021 10.2 8.5 - 10.5 MG/DL Final ALBUMIN, SERUM Date Value Ref Range Status 10/16/2020 2.9 3.5 - 5.2 GM/DL PROTHROMBIN TIME Date Value Ref Range Status 05/15/2019 13.0 11.7 - 13.9 SECONDS PARTIAL THROMBOPLASTIN TIME Date Value Ref Range Status 05/15/2019 23.3 24.5 - 35.2 SECONDS INR Date Value Ref Range Status 05/15/2019 1.0 0.9 - 1.1 Comment: MODERATE-INTENSITY WARFARIN THERAPY: 2.0-3.0 HIGHER-INTENSITY WARFARIN THERAPY: 3.0-4.0 HEMOGLOBIN A1C Date Value Ref Range Status 06/07/2021 7.4 4.0 - 6.0 % Final Comment: (NOTE) The [place] [employer] recommends the following Guidelines: 5.7-6.4% Indicates increased risk for diabetes (Prediabetes). >6.5% Diagnostic of diabetes. In the absence of unequivocal hyperglycemia, results should be confirmed by repeat test. <7% Glycemic recommendation for non adults with diabetes. [place] [employer], Standards of Medical Care in Diabetes, Volume 40; 2017 The patient's condition and plan of care have been explained to the patient and/or significant others. This explanation included risks and benefits, alternative forms of treatment and risk of non-treatment. Patient understands there is no guarantee or warranty as to results or cures. Patient and/or significant others or caregivers agree with the plan of care and demonstrate an understanding of their responsibilities as a member of their plan of care. Patient has been instructed to contact the Wound Care Center with any concerns that arise before their next visit. After Visit Summary (AVS) given to patient and signed by patient or DPOAHC. Electronically signed by: Bella Pratt APRN, 07/20/2021 10:28 AM documented in this encounterPremier [id number] Miscellaneous Notes* Care Plan - Trini Boyce RN - 07/20/2021 10:15 AM EST Progressing documented in this encounterMemorial Health [id number] Hospital Discharge instructions* Instructions* Trini Boyce RN - 07/18/2021 You have been treated at [facility] for reasons of wound healing. WOUND CARE: With Dressing Changes - wash your hands prior to starting and after you finish and dispose of old materials properly. The following wound care procedure has been ordered for you in treating your wound: Wound location: Right Plantar Foot Cleanse with: wound cleanser Apply to wound: alginate Ag Secure with: borderfoam Change Dressinx/week Return: 2 week SPECIAL INSTRUCTIONS: Nutrition: Increase dietary protein intake as instructed. Foot Wear: Follow specialty footwear instructions as advised. Off loading/Pressure Reduce: PRECAUTIONS: If any of the following occur, contact [phone] immediately or go to your nearest emergency room!! Fever over 101 degrees Increase in drainage Redness around wound and/or streaking Odor or drainage Increase in pain Increased swelling Bleeding Need for compression bandage changes (slippage, breakthrough drainage) IF YOU ARE A DIABETIC: Gently dry well including between your toes Inspect feet/legs DAILY for skin problems, blisters, etc. Wear socks/stockings at all times Tell us if you need assistance putting on your socks or shoes Elevate your feet often, if swelling reaches your legs Wear compression garments as instructed Call us if you are sick, have a cold or flu HOME MEDICATIONS AT DISCHARGE Warning, if you take acetaminophen products: No more than 3Gms or 3000mg of acetaminophen (Tylenol)should be taken daily (eg. 6 extra-strength Tylenol). Be aware that multiple medications contain tylenol products(eg.vicodin, lortab, percocet, darvocet, and nonaspirin pain relievers). FUTURE VISIT INFORMATION: Call us if you are unable to come, leave a message if unable to speak to a staff member Every effort will be made to keep your scheduled appointment, [facility] In that case we will reschedule your treatments as soon as possible. Your signature verifies that we have reviewed this document and that you understand the importance of the information above and acknowledge receipt of same. Failure to comply with these reminders mayresult in delay of your care and/or termination of treatment. If you have any questions, please call us at [phone] documented in this encounterMemorial Health [id number] History of Present illness Narrative* Tiffany Mcneal PA-C - 07/13/2021 9:00 AM EST [facility] 07/13/21 Patient Name: Hanna Nelson : 1940 AGE: [age] year old GENDER: Female Chief Complaint/Reason for Visit Hanna Nelson is a 80 year old female who presents today for wound care. No new wound care complaints nor issues. Tolerating dressing changes well. No systemic complaints. Assessment/Dermatologic Exam/Plan Hanna Nelson is an 80-year-old female who is well-known to the wound center and returns again on 06/22/2021 for re opened right plantar dfu that has previously healed multiple times. Patient statesthe right plantar ulceration opened about a week ago around 06/15/2021, with serous drainage and has surrounding soft callus. On 06/21/2021 noted increased redness and pain, concerning for infection related to wound. She has been covering with dry sterile dressing. She states she follows with podiatry Dr Nichole, was supposed to get shoe insert at last visit. Assessment: Diabetic foot ulcer right plantar surface, Daniels 1, level severity fat layers exposed Right foot cellulitis-resolved DM hx Right charcot foot deformity Patient's Problem List Patient Active Problem List Diagnosis Essential hypertension Type 2 diabetes mellitus (HC CODE) Arthritis Hypothyroidism Palpitation Hyponatremia Spinal stenosis of lumbar region with neurogenic claudication Paroxysmal atrial fibrillation (HC CODE) Postoperative ileus (HC CODE) Paraparesis (HC CODE) Ataxia Cellulitis Peripheral vascular disease (HC CODE) Wound evaluation: Right plantar forefoot beneath base of great hallux there is now remaining a tinypinpoint opening with pink moist wound bed, no overlying fibrous exudates. No erythema or warmth noted. No streaking. Scant serous type drainage. No surrounding callus. Very mild maceration to immediate periwound area/wound edges. Wound Care recommendations: No debridement. To right plantar foot wound: Cleanse with saline. Pat dry thoroughly. Apply silver alginate, cover with border foam. Change daily. -Pleated Augmentin -Discussed culture results 06/29/2021. MSSA growth -She states she follows with podiatry Dr Nichole, will refer to their service for callus management once wound closes Nutrition: Hemoglobin A1c on 06/27/2020 was 7.8. Patient works closely with PCP for diabetic management. States she is still compliant with her diabetic medications. Recommend tight glycemic control with emphasis on protein with meals. Offloading and Edema control: Elevate extremities at all times possible. Discussed with patient diabetic shoes and inserts. Hers are currently over 1 year and states she is supposed to get new one soon with podiatry service as of 03/10/2021. This is critical component for wound healing potential. Previously TCC was discussed with patient but declines due to unsafe gait. Infection: Left foot cellulitis resolved. On Augmentin, almost completed. Discussed with patient strict return/ER precautions if worsening erythema/pain/fever onset. Patient understands. We will continue to monitor. Circulation: ABIs 05/29/2018: Left 1.007, right 1.056. No acute concern for critical limb ischemia or vascular ischemic skin changes. Tissue perfusion adequate for healing. Weakly palpable distal pulses bilaterally. Wound Data: Wound Right Leg Medial Blister (bullae) (Active) Wound Right Foot Plantar Diabetic ulcer (neuropathic) (Active) Dressing Status / Change Moist with drainage 07/13/21899 Wound Bed Appearance [place] 07/13/21899 Drainage Amount Small 07/13/21899 Drainage Appearance Serosanguineous 07/13/21899 Odor None 07/13/21899 Wound cleanser Normal saline 07/13/21899 Specific Procedures Cultures 06/22/21 1000 Advanced Wound Intervention Other (Comment) 06/22/21 1000 Wound length (cm) 0.1 cm 07/13/21899 Wound width (cm) 0.1 cm 07/13/21899 Wound depth (cm) 0.05 cm 07/13/21899 Wound Surface Area (length x width) 0.01 07/13/21 0900 Periwound (surrounding) tissue Macerated 06/29/21 1000 Topical Agents Zinc oxide 06/29/21 1043 Primary Dressing Alginate;Antimicrobial 06/29/21 1043 Secondary Dressing Foam Dressing-Silicone Boarder 06/29/21 1043 Education regarding disease process, wound care, pressure relief and elevation discussed with patient today. Time spent with patient and patient care related issues in addition to coordination of patient's care with other physicians/agencies: Discharge Instructions were given to patient, significant other, caregiver, or DPOHC. Follow-up Follow-Up: 1 week Objective Vitals Signs: Visit Vitals BP 152/88 Pulse 85 Temp 98.5 F (36.9 C) Resp 16 OB Status Postmenopausal Smoking Status Former Smoker General Exam GENERAL: The patient is in no acute distress. Afebrile RESP: Nonlabored breathing. No distress. Normal respirations. ABD: benign, soft EXTREMITIES: Wound to right plantar forefoot as described above. Trace pedal edema. No cyanosis. Resolved warmth and erythematous skin changes to left dorsal foot/distal ankle. Distal extremities dry. Medications and Allergies No outpatient medications have been marked as taking for the 07/13/21 encounter (Hospital Encounter)with [facility] 3. Allergies Allergen Reactions Tape 1"X5yd [Adhesive Tape] Rash Redness. Avoids. Prefers paper tape Labs: WBC COUNT Date Value Ref Range Status 02/09/2021 6.4 3.5 - 10.9 K/uL Final HEMOGLOBIN Date Value Ref Range Status 02/09/2021 12.8 11.2 - 15.7 G/DL Final HEMATOCRIT Date Value Ref Range Status 02/09/2021 38.5 34.0 - 49.0 % Final PLATELET COUNT Date Value Ref Range Status 02/09/2021 275 140 - 400 K/uL Final SODIUM Date Value Ref Range Status 02/09/2021 140 135 - 148 MEQ/L Final 10/21/2020 135 135 - 148 MEQ/L POTASSIUM Date Value Ref Range Status 02/09/2021 4.7 3.4 - 5.3 MEQ/L Final CHLORIDE Date Value Ref Range Status 02/09/2021 102 96 - 110 MEQ/L Final CARBON DIOXIDE Date Value Ref Range Status 02/09/2021 24 19 - 32 MEQ/L Final GLUCOSE Date Value Ref Range Status 02/09/2021 179 70 - 99 MG/DL Final Comment: (NOTE) The [place] [employer] recommends the following guidelines: MG/DL <100 = NORMAL GLUCOSE 100-125= IMPAIRED FASTING GLUCOSE >=126 = PROVISIONAL DIAGNOSIS OF DIABETES ADA Workgroup Report, Diabetic Care, volume 40August 2016 CREATININE Date Value Ref Range Status 02/09/2021 1.0 0.5 - 1.2 MG/DL Final BUN Date Value Ref Range Status 02/09/2021 29 3 - 29 MG/DL Final CALCIUM Date Value Ref Range Status 02/09/2021 10.2 8.5 - 10.5 MG/DL Final ALBUMIN, SERUM Date Value Ref Range Status 10/16/2020 2.9 3.5 - 5.2 GM/DL PROTHROMBIN TIME Date Value Ref Range Status 05/15/2019 13.0 11.7 - 13.9 SECONDS PARTIAL THROMBOPLASTIN TIME Date Value Ref Range Status 05/15/2019 23.3 24.5 - 35.2 SECONDS INR Date Value Ref Range Status 05/15/2019 1.0 0.9 - 1.1 Comment: MODERATE-INTENSITY WARFARIN THERAPY: 2.0-3.0 HIGHER-INTENSITY WARFARIN THERAPY: 3.0-4.0 HEMOGLOBIN A1C Date Value Ref Range Status 06/07/2021 7.4 4.0 - 6.0 % Final Comment: (NOTE) The [place] [employer] recommends the following Guidelines: 5.7-6.4% Indicates increased risk for diabetes (Prediabetes). >6.5% Diagnostic of diabetes. In the absence of unequivocal hyperglycemia, results should be confirmed by repeat test. <7% Glycemic recommendation for non adults with diabetes. [place] [employer], Standards of Medical Care in Diabetes, Volume 40; 2017 The patient's condition and plan of care have been explained to the patient and/or significant others. This explanation included risks and benefits, alternative forms of treatment and risk of non-treatment. Patient understands there is no guarantee or warranty as to results or cures. Patient and/or significant others or caregivers agree with the plan of care and demonstrate an understanding of their responsibilities as a member of their plan of care. Patient has been instructed to contact the Wound Care Center with any concerns that arise before their next visit. After Visit Summary (AVS) given to patient and signed by patient or DPOAHC. Electronically signed by: Tiffany Mcneal PA-C, 07/13/2021 9:00 AM documented in this encounterMemorial Health [id number] Hospital Discharge instructions* Instructions* Mercedez Velasquez RN - 07/12/2021 You have been treated at [facility] for reasons of wound healing. WOUND CARE: With Dressing Changes - wash your hands prior to starting and after you finish and dispose of old materials properly. The following wound care procedure has been ordered for you in treating your wound: Wound location: Right Plantar Foot Cleanse with: wound cleanser Apply to wound: alginate Secure with: borderfoam Change Dressing: daily Return: 1 week SPECIAL INSTRUCTIONS: Nutrition: Increase dietary protein intake as instructed. Foot Wear: Follow specialty footwear instructions as advised. Off loading/Pressure Reduce: PRECAUTIONS: If any of the following occur, contact [phone] immediately or go to your nearest emergency room!! Fever over 101 degrees Increase in drainage Redness around wound and/or streaking Odor or drainage Increase in pain Increased swelling Bleeding Need for compression bandage changes (slippage, breakthrough drainage) IF YOU ARE A DIABETIC: Gently dry well including between your toes Inspect feet/legs DAILY for skin problems, blisters, etc. Wear socks/stockings at all times Tell us if you need assistance putting on your socks or shoes Elevate your feet often, if swelling reaches your legs Wear compression garments as instructed Call us if you are sick, have a cold or flu HOME MEDICATIONS AT DISCHARGE Warning, if you take acetaminophen products: No more than 3Gms or 3000mg of acetaminophen (Tylenol)should be taken daily (eg. 6 extra-strength Tylenol). Be aware that multiple medications contain tylenol products(eg.vicodin, lortab, percocet, darvocet, and nonaspirin pain relievers). FUTURE VISIT INFORMATION: Call us if you are unable to come, leave a message if unable to speak to a staff member Every effort will be made to keep your scheduled appointment, occasionally [facility]. In that case we will reschedule your treatments as soon as possible. Your signature verifies that we have reviewed this document and that you understand the importance of the information above and acknowledge receipt of same. Failure to comply with these reminders mayresult in delay of your care and/or termination of treatment. If you have any questions, please call us at [phone] documented in this encounterMemorial Health [id number] History of Present illness Narrative* Tiffany Mcneal PA-C - 06/29/2021 10:15 AM EST [facility] Wound Care Center 06/29/2021 Patient Name: Hanna Nelson : 1940 AGE: [age] year old GENDER: Female Chief Complaint/Reason for Visit Hanna Nelson is a 80 year old female who presents today for wound care. No new wound care complaints nor issues. Tolerating dressing changes well. No systemic complaints. Assessment/Dermatologic Exam/Plan Hanna Nelson is an 80-year-old female who is well-known to the wound center and returns again on 06/22/2021 for re opened right plantar dfu that has previously healed multiple times. Patient statesthe right plantar ulceration opened about a week ago around 06/15/2021, with serous drainage and has surrounding soft callus. On 06/21/2021 noted increased redness and pain, concerning for infection related to wound. She has been covering with dry sterile dressing. She states she follows with podiatry Dr Nichole, was supposed to get shoe insert at last visit. Assessment: Diabetic foot ulcer right plantar surface, Daniels 1, level severity fat layers exposed Right foot cellulitis-resolved DM hx Right charcot foot deformity Patient's Problem List Patient Active Problem List Diagnosis Essential hypertension Type 2 diabetes mellitus (HC CODE) Arthritis Hypothyroidism Palpitation Hyponatremia Spinal stenosis of lumbar region with neurogenic claudication Paroxysmal atrial fibrillation (HC CODE) Postoperative ileus (HC CODE) Paraparesis (HC CODE) Ataxia Cellulitis Peripheral vascular disease (HC CODE) Wound evaluation: Right plantar forefoot beneath base of great hallux there is noted soft moist white callus, with overlying partially attached epidermal blister roof. Still remains a tiny circular pink moist agranular wound bed, beneath blister roof once removed. Resolved erythema and warmth extending over medial/dorsal aspect of left foot. No TTP. Moderate serous type drainage with significant periwound maceration. Patient states she was not given silver alginate at last visit so she was not using. Wound Care recommendations: Debridement. Callus paring. To right plantar foot wound: Cleanse with saline. Pat dry thoroughly. Apply strip of silver alginate, cover with border foam. Change daily. -Continue on Augmentin -Discussed culture results today 06/29/2021. MSSA growth -She states she follows with podiatry Dr Nichole, will refer to their service for callus management once wound closes Nutrition: Hemoglobin A1c on 06/27/2020 was 7.8. Patient works closely with PCP for diabetic management. States she is still compliant with her diabetic medications. Recommend tight glycemic control with emphasis on protein with meals. Offloading and Edema control: Elevate extremities at all times possible. Discussed with patient diabetic shoes and inserts. Hers are currently over 1 year and states she is supposed to get new one soon with podiatry service as of 03/10/2021. This is critical component for wound healing potential. Previously TCC was discussed with patient but declines due to unsafe gait. Infection: Left foot cellulitis resolved. On Augmentin, almost completed. Discussed with patient strict return/ER precautions if worsening erythema/pain/fever onset. Patient understands. We will continue to monitor. Circulation: ABIs 05/29/2018: Left 1.007, right 1.056. No acute concern for critical limb ischemia or vascular ischemic skin changes. Tissue perfusion adequate for healing. Weakly palpable distal pulses bilaterally. Excisional Debridement Procedure Note Site of debridement: Right plantar forefoot Time out performed prior to treatment. Indication: Removal of nonviable tissue, fibrin, and exudates/slough Anesthesia: topical lidocaine per orders when needed Procedure: Excisional debridement was done using a scalpel and/or curette to remove the nonviable tissue and/or slough/exudates and fibrin after patient placed in a comfortable position. Nonexcisional debridement also done using 4x4 gauze and/or irrigation and/or cotton tip applicator. Level of Debridement: Subcutaneous Total area debrided (sqcm): 0.3 (wound area debrided only) Response to procedure: satisfactory Complications: none Post debridement measurements done by RN and reviewed by myself Wound Data: Wound Right Leg Medial Blister (bullae) (Active) Wound Right Foot Plantar Diabetic ulcer (neuropathic) (Active) Dressing Status / Change Moist with drainage 06/22/21 09 Wound Bed Appearance Other (Comment) 06/22/21949 Drainage Amount Moderate 06/22/21949 Drainage Appearance Brown;Red 06/22/21 0950 Odor None 06/22/2150 Wound cleanser Normal saline 06/22/21 0950 Specific Procedures Cultures 06/22/21 1000 Advanced Wound Intervention Other (Comment) 06/22/21 1000 Wound length (cm) 0.5 cm 06/22/21 1000 Wound width (cm) 0.6 cm 06/22/21 1000 Wound depth (cm) 0.05 cm 06/22/21 1000 Wound Surface Area (length x width) 0.3 06/22/21 1000 Periwound (surrounding) tissue Macerated;Erythema;Blistered;Edematous 06/22/21 0950 Primary Dressing Alginate;Antimicrobial 06/22/21 1000 Secondary Dressing Foam Dressing-Silicone Boarder 06/22/21 1000 Education regarding disease process, wound care, pressure relief and elevation discussed with patient today. Time spent with patient and patient care related issues in addition to coordination of patient's care with other physicians/agencies: Discharge Instructions were given to patient, significant other, caregiver, or DPOHC. Follow-up Follow-Up: 2 week Objective Vitals Signs: Visit Vitals BP 154/67 Pulse 77 Temp 99.3 F (37.4 C) Resp 16 OB Status Postmenopausal Smoking Status Former Smoker General Exam GENERAL: The patient is in no acute distress. Afebrile RESP: Nonlabored breathing. No distress. Normal respirations. ABD: benign, soft EXTREMITIES: Wound to right plantar forefoot as described above. Soft white callus surrounding wound. Less pedal edema. No cyanosis. Resolved warmth and erythematous skin changes to left dorsal foot/distal ankle. Distal extremities dry. Medications and Allergies No outpatient medications have been marked as taking for the 06/29/21 encounter (Hospital Encounter) with [facility]. Allergies Allergen Reactions Tape 1"X5yd [Adhesive Tape] Rash Redness. Avoids. Prefers paper tape Labs: WBC COUNT Date Value Ref Range Status 02/09/2021 6.4 3.5 - 10.9 K/uL Final HEMOGLOBIN Date Value Ref Range Status 02/09/2021 12.8 11.2 - 15.7 G/DL Final HEMATOCRIT Date Value Ref Range Status 02/09/2021 38.5 34.0 - 49.0 % Final PLATELET COUNT Date Value Ref Range Status 02/09/2021 275 140 - 400 K/uL Final SODIUM Date Value Ref Range Status 02/09/2021 140 135 - 148 MEQ/L Final 10/21/2020 135 135 - 148 MEQ/L POTASSIUM Date Value Ref Range Status 02/09/2021 4.7 3.4 - 5.3 MEQ/L Final CHLORIDE Date Value Ref Range Status 02/09/2021 102 96 - 110 MEQ/L Final CARBON DIOXIDE Date Value Ref Range Status 02/09/2021 24 19 - 32 MEQ/L Final GLUCOSE Date Value Ref Range Status 02/09/2021 179 70 - 99 MG/DL Final Comment: (NOTE) The [place] [employer] recommends the following guidelines: MG/DL <100 = NORMAL GLUCOSE 100-125= IMPAIRED FASTING GLUCOSE >=126 = PROVISIONAL DIAGNOSIS OF DIABETES ADA Workgroup Report, Diabetic Care, volume 40August 2016 CREATININE Date Value Ref Range Status 02/09/2021 1.0 0.5 - 1.2 MG/DL Final BUN Date Value Ref Range Status 02/09/2021 29 3 - 29 MG/DL Final CALCIUM Date Value Ref Range Status 02/09/2021 10.2 8.5 - 10.5 MG/DL Final ALBUMIN, SERUM Date Value Ref Range Status 10/16/2020 2.9 3.5 - 5.2 GM/DL PROTHROMBIN TIME Date Value Ref Range Status 05/15/2019 13.0 11.7 - 13.9 SECONDS PARTIAL THROMBOPLASTIN TIME Date Value Ref Range Status 05/15/2019 23.3 24.5 - 35.2 SECONDS INR Date Value Ref Range Status 05/15/2019 1.0 0.9 - 1.1 Comment: MODERATE-INTENSITY WARFARIN THERAPY: 2.0-3.0 HIGHER-INTENSITY WARFARIN THERAPY: 3.0-4.0 HEMOGLOBIN A1C Date Value Ref Range Status 06/07/2021 7.4 4.0 - 6.0 % Final Comment: (NOTE) The [place] [employer] recommends the following Guidelines: 5.7-6.4% Indicates increased risk for diabetes (Prediabetes). >6.5% Diagnostic of diabetes. In the absence of unequivocal hyperglycemia, results should be confirmed by repeat test. <7% Glycemic recommendation for non adults with diabetes. [place] [employer], Standards of Medical Care in Diabetes, Volume 40; 2017 The patient's condition and plan of care have been explained to the patient and/or significant others. This explanation included risks and benefits, alternative forms of treatment and risk of non-treatment. Patient understands there is no guarantee or warranty as to results or cures. Patient and/or significant others or caregivers agree with the plan of care and demonstrate an understanding of their responsibilities as a member of their plan of care. Patient has been instructed to contact the Wound Care Center with any concerns that arise before their next visit. After Visit Summary (AVS) given to patient and signed by patient or DPOAHC. Electronically signed by: Tiffany Mcneal PA-C, 06/29/2021 11:19 AM documented in this encounterMemorial Health [id number] Miscellaneous Notes* Care Plan - Katey Herrera RN - 06/29/2021 10:15 AM EST Progressing. documented in this encounterMemorial Health [id number] Hospital Discharge instructions* Instructions* Katey Herrera RN - 06/23/2021 You have been treated at [facility] for reasons of wound healing. WOUND CARE: With Dressing Changes - wash your hands prior to starting and after you finish and dispose of old materials properly. The following wound care procedure has been ordered for you in treating your wound: Wound location: Right Plantar Foot Cleanse with: wound cleanser Zinc paste to periwound Apply to wound: double silver alginate AG Secure with: boarderfoam Change Dressing: daily Return: 2 weeks SPECIAL INSTRUCTIONS: Nutrition: Increase dietary protein intake as instructed. Foot Wear: Follow specialty footwear instructions as advised. Off loading/Pressure Reduce: PRECAUTIONS: If any of the following occur, contact [phone] immediately or go to your nearest emergency room!! Fever over 101 degrees Increase in drainage Redness around wound and/or streaking Odor or drainage Increase in pain Increased swelling Bleeding Need for compression bandage changes (slippage, breakthrough drainage) IF YOU ARE A DIABETIC: Gently dry well including between your toes Inspect feet/legs DAILY for skin problems, blisters, etc. Wear socks/stockings at all times Tell us if you need assistance putting on your socks or shoes Elevate your feet often, if swelling reaches your legs Wear compression garments as instructed Call us if you are sick, have a cold or flu HOME MEDICATIONS AT DISCHARGE Warning, if you take acetaminophen products: No more than 3Gms or 3000mg of acetaminophen (Tylenol)should be taken daily (eg. 6 extra-strength Tylenol). Be aware that multiple medications contain tylenol products(eg.vicodin, lortab, percocet, darvocet, and nonaspirin pain relievers). FUTURE VISIT INFORMATION: Call us if you are unable to come, leave a message if unable to speak to a staff member Every effort will be made to keep your scheduled appointment, [facility]. In that case we will reschedule your treatments as soon as possible. Your signature verifies that we have reviewed this document and that you understand the importance of the information above and acknowledge receipt of same. Failure to comply with these reminders mayresult in delay of your care and/or termination of treatment. If you have any questions, please call us at [phone] documented in this encounterMemorial Health [id number] Hospital Discharge instructions* Instructions* Katey Herrera, RN - 06/22/2021 You have been treated at [facility] for reasons of wound healing. WOUND CARE: With Dressing Changes - wash your hands prior to starting and after you finish and dispose of old materials properly. The following wound care procedure has been ordered for you in treating your wound: Wound location: Right Plantar Foot Cleanse with: wound cleanser Apply to wound: alginate AG Secure with: boarderfoam Change Dressing: as needed Return: 1 week SPECIAL INSTRUCTIONS: Nutrition: Increase dietary protein intake as instructed. Foot Wear: Follow specialty footwear instructions as advised. Off loading/Pressure Reduce: PRECAUTIONS: If any of the following occur, contact [phone] immediately or go to your nearest emergency room!! Fever over 101 degrees Increase in drainage Redness around wound and/or streaking Odor or drainage Increase in pain Increased swelling Bleeding Need for compression bandage changes (slippage, breakthrough drainage) IF YOU ARE A DIABETIC: Gently dry well including between your toes Inspect feet/legs DAILY for skin problems, blisters, etc. Wear socks/stockings at all times Tell us if you need assistance putting on your socks or shoes Elevate your feet often, if swelling reaches your legs Wear compression garments as instructed Call us if you are sick, have a cold or flu HOME MEDICATIONS AT DISCHARGE Warning, if you take acetaminophen products: No more than 3Gms or 3000mg of acetaminophen (Tylenol)should be taken daily (eg. 6 extra-strength Tylenol). Be aware that multiple medications contain tylenol products(eg.vicodin, lortab, percocet, darvocet, and nonaspirin pain relievers). FUTURE VISIT INFORMATION: Call us if you are unable to come, leave a message if unable to speak to a staff member Every effort will be made to keep your scheduled appointment, [facility] In that case we will reschedule your treatments as soon as possible. Your signature verifies that we have reviewed this document and that you understand the importance of the information above and acknowledge receipt of same. Failure to comply with these reminders mayresult in delay of your care and/or termination of treatment. If you have any questions, please call us at [phone] documented in this encounterMemorial Health [id number] History of Present illness Narrative* Tiffany Mcneal PA-C - 06/22/2021 9:30 AM EST [facility] 06/22/2021 Patient Name: Hanna Nelson : 1940 AGE: [age] year old GENDER: Female Chief Complaint/Reason for Visit Hanna Nelson is a 80 year old female who presents today for wound care. No new wound care complaints nor issues. Tolerating dressing changes well. No systemic complaints. Assessment/Dermatologic Exam/Plan Hanna Nelson is an 80-year-old female who is well-known to the wound center and returns again on 06/22/2021 for re opened right plantar dfu that has previously healed multiple times. Patient statesthe right plantar ulceration opened about a week ago around 06/15/2021, with serous drainage and has surrounding soft callus. On 06/21/2021 noted increased redness and pain, concerning for infection related to wound. She has been covering with dry sterile dressing. She states she follows with podiatry Dr Nichole, was supposed to get shoe insert at last visit. Assessment: Diabetic foot ulcer right plantar surface, Daniels 1, level severity fat layers exposed Right foot cellulitis DM hx Right charcot foot deformity Patient's Problem List Patient Active Problem List Diagnosis Essential hypertension Type 2 diabetes mellitus (HC CODE) Arthritis Hypothyroidism Palpitation Hyponatremia Spinal stenosis of lumbar region with neurogenic claudication Paroxysmal atrial fibrillation (HC CODE) Postoperative ileus (HC CODE) Paraparesis (HC CODE) Ataxia Cellulitis Peripheral vascular disease (HC CODE) Wound evaluation: Right plantar forefoot beneath base of [place] there is noted soft moist white callus with central tiny circular dry brown eschar. Pared off to reveal red granular pinpoint wound bed. Noted blister to most medial aspect of callus, manually decompressed with seropurulent material, culture obtained. Noted surrounding erythema and warmth extending over dorsal aspect of left foot extending up towardankle, consistent with cellulitis. Wound Care recommendations: Debridement. Callus paring. To right plantar foot wound: Cleanse with saline. Pat dry thoroughly. Apply strip of silver alginate, cover with border foam. Change daily. -Started patient on Augmentin x10 days for cellulitis -Ordered wound culture 06/22 -She states she follows with podiatry Dr Nichole, will refer to their service for callus management once wound closes Nutrition: Hemoglobin A1c on 06/27/2020 was 7.8. Patient works closely with PCP for diabetic management. States she is still compliant with her diabetic medications. Recommend tight glycemic control with emphasis on protein with meals. Offloading and Edema control: Elevate extremities at all times possible. Discussed with patient diabetic shoes and inserts. Hers are currently over 1 year and states she is supposed to get new one soon with podiatry service as of 03/10/2021. This is critical component for wound healing potential. Previously TCC was discussed with patient but declines due to unsafe gait. Infection: Left foot cellulitis as described above. Start a course of Augmentin x10 days. Wound culture obtained. Discussed with patient strict return/ER precautions if worsening erythema/pain/fever onset. Patient understands. We will continue to monitor. Circulation: ABIs 05/29/2018: Left 1.007, right 1.056. No acute concern for critical limb ischemia or vascular ischemic skin changes. Tissue perfusion adequate for healing. Weakly palpable distal pulses bilaterally. Excisional Debridement Procedure Note Site of debridement: Right plantar forefoot Time out performed prior to treatment. Indication: Removal of nonviable tissue, fibrin, and exudates/slough Anesthesia: topical lidocaine per orders when needed Procedure: Excisional debridement was done using a scalpel and/or curette to remove the nonviable tissue and/or slough/exudates and fibrin after patient placed in a comfortable position. Nonexcisional debridement also done using 4x4 gauze and/or irrigation and/or cotton tip applicator. Level of Debridement: Open Total area debrided (sqcm): 0.3 Response to procedure: satisfactory Complications: none Post debridement measurements done by RN and reviewed by myself Wound Data: Wound Right Leg Medial Blister (bullae) (Active) Wound Right Foot Plantar Diabetic ulcer (neuropathic) (Active) Dressing Status / Change Moist with drainage 06/22/21 0950 Wound Bed Appearance Other (Comment) 06/22/21 0950 Drainage Amount Moderate 06/22/21 0950 Drainage Appearance Brown;Red 06/22/21 0950 Odor None 06/22/21 0950 Wound cleanser Normal saline 06/22/21 0950 Specific Procedures Cultures 06/22/21 1000 Advanced Wound Intervention Other (Comment) 06/22/21 1000 Wound length (cm) 0.5 cm 06/22/21 1000 Wound width (cm) 0.6 cm 06/22/21 1000 Wound depth (cm) 0.05 cm 06/22/21 1000 Wound Surface Area (length x width) 0.3 06/22/21 1000 Periwound (surrounding) tissue Macerated;Erythema;Blistered;Edematous 06/22/21 0950 Primary Dressing Alginate;Antimicrobial 06/22/21 1000 Secondary Dressing Foam Dressing-Silicone Boarder 06/22/21 1000 Education regarding disease process, wound care, pressure relief and elevation discussed with patient today. Time spent with patient and patient care related issues in addition to coordination of patient's care with other physicians/agencies: Discharge Instructions were given to patient, significant other, caregiver, or DPOHC. Follow-up Follow-Up: 1 week Objective Vitals Signs: Visit Vitals BP 143/65 Pulse 80 Temp 98.6 F (37 C) Resp 16 OB Status Postmenopausal Smoking Status Former Smoker General Exam GENERAL: The patient is in no acute distress. Afebrile RESP: Nonlabored breathing. No distress. Normal respirations. ABD: benign, soft EXTREMITIES: Wound to right foot as described above. Pedal edema. No cyanosis. Warmth and erythema to left dorsal foot/distal ankle. Distal extremities dry. Medications and Allergies No outpatient medications have been marked as taking for the 06/22/21 encounter (Hospital Encounter) with [facility] 4. Allergies Allergen Reactions Tape 1"X5yd [Adhesive Tape] Rash Redness. Avoids. Prefers paper tape Labs: WBC COUNT Date Value Ref Range Status 02/09/2021 6.4 3.5 - 10.9 K/uL Final HEMOGLOBIN Date Value Ref Range Status 02/09/2021 12.8 11.2 - 15.7 G/DL Final HEMATOCRIT Date Value Ref Range Status 02/09/2021 38.5 34.0 - 49.0 % Final PLATELET COUNT Date Value Ref Range Status 02/09/2021 275 140 - 400 K/uL Final SODIUM Date Value Ref Range Status 02/09/2021 140 135 - 148 MEQ/L Final 10/21/2020 135 135 - 148 MEQ/L POTASSIUM Date Value Ref Range Status 02/09/2021 4.7 3.4 - 5.3 MEQ/L Final CHLORIDE Date Value Ref Range Status 02/09/2021 102 96 - 110 MEQ/L Final CARBON DIOXIDE Date Value Ref Range Status 02/09/2021 24 19 - 32 MEQ/L Final GLUCOSE Date Value Ref Range Status 02/09/2021 179 70 - 99 MG/DL Final Comment: (NOTE) The [place] [employer] recommends the following guidelines: MG/DL <100 = NORMAL GLUCOSE 100-125= IMPAIRED FASTING GLUCOSE >=126 = PROVISIONAL DIAGNOSIS OF DIABETES ADA Workgroup Report, Diabetic Care, volume August 2016 CREATININE Date Value Ref Range Status 02/09/2021 1.0 0.5 - 1.2 MG/DL Final BUN Date Value Ref Range Status 02/09/2021 29 3 - 29 MG/DL Final CALCIUM Date Value Ref Range Status 02/09/2021 10.2 8.5 - 10.5 MG/DL Final ALBUMIN, SERUM Date Value Ref Range Status 10/16/2020 2.9 3.5 - 5.2 GM/DL PROTHROMBIN TIME Date Value Ref Range Status 05/15/2019 13.0 11.7 - 13.9 SECONDS PARTIAL THROMBOPLASTIN TIME Date Value Ref Range Status 05/15/2019 23.3 24.5 - 35.2 SECONDS INR Date Value Ref Range Status 05/15/2019 1.0 0.9 - 1.1 Comment: MODERATE-INTENSITY WARFARIN THERAPY: 2.0-3.0 HIGHER-INTENSITY WARFARIN THERAPY: 3.0-4.0 HEMOGLOBIN A1C Date Value Ref Range Status 06/07/2021 7.4 4.0 - 6.0 % Final Comment: (NOTE) The [place] [employer] recommends the following Guidelines: 5.7-6.4% Indicates increased risk for diabetes (Prediabetes). >6.5% Diagnostic of diabetes. In the absence of unequivocal hyperglycemia, results should be confirmed by repeat test. <7% Glycemic recommendation for non adults with diabetes. [place] [employer], Standards of Medical Care in Diabetes, Volume 40; 2017 The patient's condition and plan of care have been explained to the patient and/or significant others. This explanation included risks and benefits, alternative forms of treatment and risk of non-treatment. Patient understands there is no guarantee or warranty as to results or cures. Patient and/or significant others or caregivers agree with the plan of care and demonstrate an understanding of their responsibilities as a member of their plan of care. Patient has been instructed to contact the Wound Care Center with any concerns that arise before their next visit. After Visit Summary (AVS) given to patient and signed by patient or DPOAHC. Electronically signed by: Tiffany Mcneal PA-C, 06/22/2021 10:44 AM documented in this encounterMemorial Health [id number] History of Present illness Narrative* Tiffayn Mcneal PA-C - 03/31/2021 11:00 AM EDT [facility] Wound Care Center 03/31/21 Patient Name: Hanna Nelson : 1940 AGE: [age] year old GENDER: Female Chief Complaint/Reason for Visit Hanna Nelson is a 80 year old female who presents today for wound care. No new wound care complaints nor issues. Tolerating dressing changes well. No systemic complaints. Assessment/Dermatologic Exam/Plan Wound diagnosis/etiology and severity: Hanna Nelson is an 80-year-old female who is well-known [facility] wound center and returns again on 03/10/21 for re opened right plantar dfu that has previously healed. Patient states the right plantar ulceration opened on 03/01 with serous drainage and has surrounding soft callus. She used previous wound supplies and covered area with gauze. She denies any concern for infection at this time. HESHAM was in Sep 2020 by our service. She states she follows with podiatry Dr Nichole and is awaiting shoe inserts as of 03/10. Assessment: Diabetic foot ulcer right plantar surface, Daniels 1, level severity fat layers exposed-healed on 03/31/2021 DM hx Right charcot foot deformity Patient's Problem List Patient Active Problem List Diagnosis Essential hypertension Type 2 diabetes mellitus (HC CODE) Arthritis Hypothyroidism Palpitation Hyponatremia Spinal stenosis of lumbar region with neurogenic claudication Paroxysmal atrial fibrillation (HC CODE) Postoperative ileus (HC CODE) Paraparesis (HC CODE) Ataxia Cellulitis Peripheral vascular disease (HC CODE) Wound evaluation: Right plantar wound now with pink epithelial skin overlying previous wound bed. No active drainage or open area noted on exam. No periwound maceration. Wound Care recommendations: No debridement. Continue to pad and protect and obtain new diabetic foot inserts maintain offloading the area. Today will apply silver rinse for foam. -She states she follows with podiatry Dr Nichole and is awaiting shoe inserts Nutrition: Hemoglobin A1c on 06/27/2020 was 7.8. Patient works closely with PCP for diabetic management. States she is compliant with her diabetic medications. Recommend tight glycemic control with emphasis on protein with meals. Offloading and Edema control: Elevate extremities at all times possible. Discussed with patient diabetic shoes and inserts. Hers are currently over 1 year and states she is supposed to get new one soon with podiatry service as of 03/10/2021. This is critical component for wound healing potential. Previously TCC was discussed with patient but declines due to unsafe gait. Infection: On exam today no obvious signs of acute infection noted. Currently on no antibiotic therapy. We will continue to monitor. Circulation: ABIs 05/29/2018: Left 1.007, right 1.056. No acute concern for critical limb ischemia or vascular ischemic skin changes. Tissue perfusion adequate for healing. Education regarding disease process, wound care, pressure relief and elevation discussed with patient today. Time spent with patient and patient care related issues in addition to coordination of patient's care with other physicians/agencies: Discharge Instructions were given to patient, significant other, caregiver, or DPOHC. Follow-up Follow-Up: As needed Objective Vitals Signs: Visit Vitals BP 151/71 Pulse 73 Temp 98.3 F (36.8 C) Resp 16 OB Status Postmenopausal Smoking Status Former Smoker General Exam GENERAL: The patient is in no acute distress. RESP: Nonlabored breathing. No distress. Normal respirations. ABD: benign, soft EXTREMITIES: Wound to right foot as described above. no edema. no cyanosis. Distal extremities warmand dry. Medications and Allergies No outpatient medications have been marked as taking for the 03/31/21 encounter (Hospital Encounter)with [facility] 1. Allergies Allergen Reactions Tape 1"X5yd [Adhesive Tape] Rash Redness. Avoids. Prefers paper tape Labs: WBC COUNT Date Value Ref Range Status 02/09/2021 6.4 3.5 - 10.9 K/uL Final HEMOGLOBIN Date Value Ref Range Status 02/09/2021 12.8 11.2 - 15.7 G/DL Final HEMATOCRIT Date Value Ref Range Status 02/09/2021 38.5 34.0 - 49.0 % Final PLATELET COUNT Date Value Ref Range Status 02/09/2021 275 140 - 400 K/uL Final SODIUM Date Value Ref Range Status 02/09/2021 140 135 - 148 MEQ/L Final 10/21/2020 135 135 - 148 MEQ/L POTASSIUM Date Value Ref Range Status 02/09/2021 4.7 3.4 - 5.3 MEQ/L Final CHLORIDE Date Value Ref Range Status 02/09/2021 102 96 - 110 MEQ/L Final CARBON DIOXIDE Date Value Ref Range Status 02/09/2021 24 19 - 32 MEQ/L Final GLUCOSE Date Value Ref Range Status 02/09/2021 179 70 - 99 MG/DL Final Comment: (NOTE) The [place] [employer] recommends the following guidelines: MG/DL <100 = NORMAL GLUCOSE 100-125= IMPAIRED FASTING GLUCOSE >=126 = PROVISIONAL DIAGNOSIS OF DIABETES ADA Workgroup Report, Diabetic Care, volume 40August 2016 CREATININE Date Value Ref Range Status 02/09/2021 1.0 0.5 - 1.2 MG/DL Final BUN Date Value Ref Range Status 02/09/2021 29 3 - 29 MG/DL Final CALCIUM Date Value Ref Range Status 02/09/2021 10.2 8.5 - 10.5 MG/DL Final ALBUMIN, SERUM Date Value Ref Range Status 10/16/2020 2.9 3.5 - 5.2 GM/DL PROTHROMBIN TIME Date Value Ref Range Status 05/15/2019 13.0 11.7 - 13.9 SECONDS PARTIAL THROMBOPLASTIN TIME Date Value Ref Range Status 05/15/2019 23.3 24.5 - 35.2 SECONDS INR Date Value Ref Range Status 05/15/2019 1.0 0.9 - 1.1 Comment: MODERATE-INTENSITY WARFARIN THERAPY: 2.0-3.0 HIGHER-INTENSITY WARFARIN THERAPY: 3.0-4.0 HEMOGLOBIN A1C Date Value Ref Range Status 02/09/2021 7.6 4.0 - 6.0 % Final Comment: (NOTE) The [place] [employer] recommends the following Guidelines: 5.7-6.4% Indicates increased risk for diabetes (Prediabetes). >6.5% Diagnostic of diabetes. In the absence of unequivocal hyperglycemia, results should be confirmed by repeat test. <7% Glycemic recommendation for non adults with diabetes. [place] [employer], Standards of Medical Care in Diabetes, Volume 40; 2017 The patient's condition and plan of care have been explained to the patient and/or significant others. This explanation included risks and benefits, alternative forms of treatment and risk of non-treatment. Patient understands there is no guarantee or warranty as to results or cures. Patient and/or significant others or caregivers agree with the plan of care and demonstrate an understanding of their responsibilities as a member of their plan of care. Patient has been instructed to contact the Wound Care Center with any concerns that arise before their next visit. After Visit Summary (AVS) given to patient and signed by patient or DPOAHC. Electronically signed by: Tiffany Mcneal PA-C, 03/31/2021 11:00 AM documented in this encounterMemorial Health [id number] Hospital Discharge instructions* Instructions* Tesfaye Su Jaz - 03/30/2021 You have been treated at [facility] for reasons of wound healing. WOUND CARE: With Dressing Changes - wash your hands prior to starting and after you finish and dispose of old materials properly. The following wound care procedure has been ordered for you in treating your wound: Wound location: Right Foot Cleanse with: saline Apply to wound: FOAM AG Secure with: border foam and personal compression Change Dressing: every other day CONGRATULATIONS, YOUR WOUND IS HEALED! 1. Check your skin daily for reddened areas, abrasions, or sores. If a new wound is noted call, please call the wound clinic at [phone] for an appointment. 2. Clean and dry your skin, using mild soap and warm water (not hot) daily. 3. If your skin appears dry apply lotion daily. 4. The newly healed skin will be tender and fragile for several weeks. Please pad and protect this area and avoid re-injury. 5. Wear well fitting shoes and white socks. 6. Resume your ordinary activities as tolerated. 7. Maintain a nutritious diet avoiding alcohol, caffeine, and smoking. 8. Return to your primary care physician for all of your health issues and medications. 9. For leg wounds, continue to use compression stockings and keep your legs elevated above the level of the heart as directed in the Wound Care Center. 10. Replace compression stockings every six months to ensure proper fit. SPECIAL INSTRUCTIONS: Nutrition: Increase dietary protein intake as instructed. Foot Wear: Follow specialty footwear instructions as advised. Off loading/Pressure Reduce: PRECAUTIONS: If any of the following occur, contact [phone] immediately or go to your nearest emergency room!! Fever over 101 degrees Increase in drainage Redness around wound and/or streaking Odor or drainage Increase in pain Increased swelling Bleeding Need for compression bandage changes (slippage, breakthrough drainage) IF YOU ARE A DIABETIC: Gently dry well including between your toes Inspect feet/legs DAILY for skin problems, blisters, etc. Wear socks/stockings at all times Tell us if you need assistance putting on your socks or shoes Elevate your feet often, if swelling reaches your legs Wear compression garments as instructed Call us if you are sick, have a cold or flu HOME MEDICATIONS AT DISCHARGE Warning, if you take acetaminophen products: No more than 3Gms or 3000mg of acetaminophen (Tylenol)should be taken daily (eg. 6 extra-strength Tylenol). Be aware that multiple medications contain tylenol products(eg.vicodin, lortab, percocet, darvocet, and nonaspirin pain relievers). FUTURE VISIT INFORMATION: Call us if you are unable to come, leave a message if unable to speak to a staff member Every effort will be made to keep your scheduled appointment, [facility]. In that case we will reschedule your treatments as soon as possible. Your signature verifies that we have reviewed this document and that you understand the importance of the information above and acknowledge receipt of same. Failure to comply with these reminders mayresult in delay of your care and/or termination of treatment. If you have any questions, please call us at [phone] documented in this encounterMemorial Health [id number] Hospital Discharge instructions* Instructions* Katey Herrera RN - 03/24/2021 You have been treated at [facility] for reasons of wound healing. WOUND CARE: With Dressing Changes - wash your hands prior to starting and after you finish and dispose of old materials properly. The following wound care procedure has been ordered for you in treating your wound: Wound location: Right Foot Cleanse with: saline Apply to wound: collagen AG, alginate Secure with: boarderfoam and personal compression Change Dressing: every other day Return: 1 week SPECIAL INSTRUCTIONS: Nutrition: Increase dietary protein intake as instructed. Foot Wear: Follow specialty footwear instructions as advised. Off loading/Pressure Reduce: PRECAUTIONS: If any of the following occur, contact [phone] immediately or go to your nearest emergency room!! Fever over 101 degrees Increase in drainage Redness around wound and/or streaking Odor or drainage Increase in pain Increased swelling Bleeding Need for compression bandage changes (slippage, breakthrough drainage) IF YOU ARE A DIABETIC: Gently dry well including between your toes Inspect feet/legs DAILY for skin problems, blisters, etc. Wear socks/stockings at all times Tell us if you need assistance putting on your socks or shoes Elevate your feet often, if swelling reaches your legs Wear compression garments as instructed Call us if you are sick, have a cold or flu HOME MEDICATIONS AT DISCHARGE Warning, if you take acetaminophen products: No more than 3Gms or 3000mg of acetaminophen (Tylenol)should be taken daily (eg. 6 extra-strength Tylenol). Be aware that multiple medications contain tylenol products(eg.vicodin, lortab, percocet, darvocet, and nonaspirin pain relievers). FUTURE VISIT INFORMATION: Call us if you are unable to come, leave a message if unable to speak to a staff member Every effort will be made to keep your scheduled appointment, [facility] In that case we will reschedule your treatments as soon as possible. Your signature verifies that we have reviewed this document and that you understand the importance of the information above and acknowledge receipt of same. Failure to comply with these reminders mayresult in delay of your care and/or termination of treatment. If you have any questions, please call us at [phone] documented in this encounterMemorial Health [id number] History of Present illness Narrative* Tiffany Mcneal PA-C - 03/24/2021 11:00 AM EDT [facility] 03/24/21 Patient Name: Hanna Nelson : 1940 AGE: [age] year old GENDER: Female Chief Complaint/Reason for Visit Hanna Nelson is a 80 year old female who presents today for wound care. No new wound care complaints nor issues. Tolerating dressing changes well. No systemic complaints. Assessment/Dermatologic Exam/Plan Wound diagnosis/etiology and severity: Hanna Nelson is an 80-year-old female who is well-known [facility] wound center and returns again on 03/10/21 for re opened right plantar dfu that has previously healed. Patient states the right plantar ulceration opened on 03/01 with serous drainage and has surrounding soft callus. She used previous wound supplies and covered area with gauze. She denies any concern for infection at this time. HESHAM was in Sep 2020 by our service. She states she follows with podiatry Dr Nichole and is awaiting shoe inserts as of 03/10. Assessment: Diabetic foot ulcer right plantar surface, Daniels 1, level severity fat layers exposed DM hx Right charcot foot deformity Patient's Problem List Patient Active Problem List Diagnosis Essential hypertension Type 2 diabetes mellitus (HC CODE) Arthritis Hypothyroidism Palpitation Hyponatremia Spinal stenosis of lumbar region with neurogenic claudication Paroxysmal atrial fibrillation (HC CODE) Postoperative ileus (HC CODE) Paraparesis (HC CODE) Ataxia Cellulitis Peripheral vascular disease (HC CODE) Wound evaluation: Decreased in size this week. Less thickened callus. Tiny circular shaped pink wound down to subcutaneous level on right medial plantar forefoot. Surrounding moist whitish-yellow thickened callus, pared off. Overall appears to be close to healing still, needs to be offloaded correctly in order to fully epithelialize. No concern for active infection. Scant serous drainage. No odor. Charcot deformity noted. Wound Care recommendations: Debridement: Callus paring Collagen ag, alginate, cover with border foam, persona lcompression. change every other day. -She states she follows with podiatry Dr Nichole and is awaiting shoe inserts as of 03/24 still. Nutrition: Hemoglobin A1c on 06/27/2020 was 7.8. Patient works closely with PCP for diabetic management. States she is compliant with her diabetic medications. Recommend tight glycemic control with emphasis on protein with meals. Offloading and Edema control: Elevate extremities at all times possible. Discussed with patient diabetic shoes and inserts. Hers are currently over 1 year and states she is supposed to get new one soon with podiatry service as of 03/10/2021. This is critical component for wound healing potential. Previously TCC was discussed with patient but declines due to unsafe gait. Infection: On exam today no obvious signs of acute infection noted. Currently on no antibiotic therapy. We will continue to monitor. Circulation: ABIs 05/29/2018: Left 1.007, right 1.056. No acute concern for critical limb ischemia or vascular ischemic skin changes. Tissue perfusion adequate for healing. Education regarding disease process, wound care, pressure relief and elevation discussed with patient today. Time spent with patient and patient care related issues in addition to coordination of patient's care with other physicians/agencies: Discharge Instructions were given to patient, significant other, caregiver, or DPOHC. Follow-up Follow-Up: 1 wk Excisional Debridement Procedure Note Site of debridement: Right plantar foot Time out performed prior to treatment. Indication: Removal of nonviable tissue, fibrin, and exudates/slough Anesthesia: topical lidocaine per orders when needed Procedure: Excisional debridement was done using a scalpel and/or curette to remove the nonviable tissue and/or slough/exudates and fibrin after patient placed in a comfortable position. Nonexcisional debridement also done using 4x4 gauze and/or irrigation and/or cotton tip applicator. Level of Debridement: subq Total area debrided (sqcm): 0.09 Response to procedure: satisfactory Complications: none Post debridement measurements done by RN and reviewed by myself Wound Data: Wound Right Leg Medial Blister (bullae) (Active) Wound Right Foot (Active) Dressing Status / Change Moist with drainage 03/24/21 1100 Wound Bed Appearance [place] 03/24/21 1100 Drainage Amount Moderate 03/24/21 1100 Drainage Appearance Red brown 03/24/21 1100 Odor None 03/24/21 1100 Wound cleanser Antimicrobial 03/24/21 1100 Advanced Wound Intervention Photos 03/10/21 1400 Wound length (cm) 0.3 cm 03/24/21 1100 Wound width (cm) 0.3 cm 03/24/21 1100 Wound depth (cm) 0.1 cm 03/24/21 1100 Wound Surface Area (length x width) 0.09 03/24/21 1100 Periwound (surrounding) tissue Calloused 03/17/21 1400 Primary Dressing Collagens;Alginate 03/17/21 1500 Secondary Dressing Foam Dressing-Silicone Boarder 03/17/21 1500 Objective Vitals Signs: Visit Vitals BP 163/73 Pulse 68 Temp 99.1 F (37.3 C) Resp 16 OB Status Postmenopausal Smoking Status Former Smoker General Exam GENERAL: The patient is in no acute distress. RESP: Nonlabored breathing. No distress. Normal respirations. ABD: benign, soft EXTREMITIES: Wound to right foot as described above. no edema. no cyanosis. Distal extremities warmand dry. Medications and Allergies No outpatient medications have been marked as taking for the 03/24/21 encounter (Hospital Encounter)with [facility] 1. Allergies Allergen Reactions Tape 1"X5yd [Adhesive Tape] Rash Redness. Avoids. Prefers paper tape Labs: WBC COUNT Date Value Ref Range Status 02/09/2021 6.4 3.5 - 10.9 K/uL Final HEMOGLOBIN Date Value Ref Range Status 02/09/2021 12.8 11.2 - 15.7 G/DL Final HEMATOCRIT Date Value Ref Range Status 02/09/2021 38.5 34.0 - 49.0 % Final PLATELET COUNT Date Value Ref Range Status 02/09/2021 275 140 - 400 K/uL Final SODIUM Date Value Ref Range Status 02/09/2021 140 135 - 148 MEQ/L Final 10/21/2020 135 135 - 148 MEQ/L POTASSIUM Date Value Ref Range Status 02/09/2021 4.7 3.4 - 5.3 MEQ/L Final CHLORIDE Date Value Ref Range Status 02/09/2021 102 96 - 110 MEQ/L Final CARBON DIOXIDE Date Value Ref Range Status 02/09/2021 24 19 - 32 MEQ/L Final GLUCOSE Date Value Ref Range Status 02/09/2021 179 70 - 99 MG/DL Final Comment: (NOTE) The [place] [employer] recommends the following guidelines: MG/DL <100 = NORMAL GLUCOSE 100-125= IMPAIRED FASTING GLUCOSE >=126 = PROVISIONAL DIAGNOSIS OF DIABETES ADA Workgroup Report, Diabetic Care, volume 40August 2016 CREATININE Date Value Ref Range Status 02/09/2021 1.0 0.5 - 1.2 MG/DL Final BUN Date Value Ref Range Status 02/09/2021 29 3 - 29 MG/DL Final CALCIUM Date Value Ref Range Status 02/09/2021 10.2 8.5 - 10.5 MG/DL Final ALBUMIN, SERUM Date Value Ref Range Status 10/16/2020 2.9 3.5 - 5.2 GM/DL PROTHROMBIN TIME Date Value Ref Range Status 05/15/2019 13.0 11.7 - 13.9 SECONDS PARTIAL THROMBOPLASTIN TIME Date Value Ref Range Status 05/15/2019 23.3 24.5 - 35.2 SECONDS INR Date Value Ref Range Status 05/15/2019 1.0 0.9 - 1.1 Comment: MODERATE-INTENSITY WARFARIN THERAPY: 2.0-3.0 HIGHER-INTENSITY WARFARIN THERAPY: 3.0-4.0 HEMOGLOBIN A1C Date Value Ref Range Status 02/09/2021 7.6 4.0 - 6.0 % Final Comment: (NOTE) The [place] [employer] recommends the following Guidelines: 5.7-6.4% Indicates increased risk for diabetes (Prediabetes). >6.5% Diagnostic of diabetes. In the absence of unequivocal hyperglycemia, results should be confirmed by repeat test. <7% Glycemic recommendation for non adults with diabetes. [place] [employer], Standards of Medical Care in Diabetes, Volume 40; 2017 The patient's condition and plan of care have been explained to the patient and/or significant others. This explanation included risks and benefits, alternative forms of treatment and risk of non-treatment. Patient understands there is no guarantee or warranty as to results or cures. Patient and/or significant others or caregivers agree with the plan of care and demonstrate an understanding of their responsibilities as a member of their plan of care. Patient has been instructed to contact the Wound Care Center with any concerns that arise before their next visit. After Visit Summary (AVS) given to patient and signed by patient or DPOAHC. Electronically signed by: Tiffany Mcneal PA-C, 03/24/2021 11:23 AM documented in this encounterMemorial Health [id number] Hospital Discharge instructions* Instructions* Katey Herrera, RN - 03/17/2021 You have been treated at [facility] for reasons of wound healing. WOUND CARE: With Dressing Changes - wash your hands prior to starting and after you finish and dispose of old materials properly. The following wound care procedure has been ordered for you in treating your wound: Wound location: Right Foot Cleanse with: saline Apply to wound: collagen AG, alginate Secure with: boarderfoam and personal compression Change Dressing: every other day Return: 1 week SPECIAL INSTRUCTIONS: Nutrition: Increase dietary protein intake as instructed. Foot Wear: Follow specialty footwear instructions as advised. Off loading/Pressure Reduce: PRECAUTIONS: If any of the following occur, contact [phone] immediately or go to your nearest emergency room!! Fever over 101 degrees Increase in drainage Redness around wound and/or streaking Odor or drainage Increase in pain Increased swelling Bleeding Need for compression bandage changes (slippage, breakthrough drainage) IF YOU ARE A DIABETIC: Gently dry well including between your toes Inspect feet/legs DAILY for skin problems, blisters, etc. Wear socks/stockings at all times Tell us if you need assistance putting on your socks or shoes Elevate your feet often, if swelling reaches your legs Wear compression garments as instructed Call us if you are sick, have a cold or flu HOME MEDICATIONS AT DISCHARGE Warning, if you take acetaminophen products: No more than 3Gms or 3000mg of acetaminophen (Tylenol)should be taken daily (eg. 6 extra-strength Tylenol). Be aware that multiple medications contain tylenol products(eg.vicodin, lortab, percocet, darvocet, and nonaspirin pain relievers). FUTURE VISIT INFORMATION: Call us if you are unable to come, leave a message if unable to speak to a staff member Every effort will be made to keep your scheduled appointment, occasionally patients [facility] to [facility] need priority care. In that case we will reschedule your treatments as soon as possible. Your signature verifies that we have reviewed this document and that you understand the importance of the information above and acknowledge receipt of same. Failure to comply with these reminders mayresult in delay of your care and/or termination of treatment. If you have any questions, please call us at [phone] documented in this encounterMemorial Health [id number] History of Present illness Narrative* Nic Temple MD - 01/26/2021 3:35 PM EDT WOUND CARE NOTE Name:HANNA NELSON Account: [id number] Progress Note Details Patient Name: HANNA NELSON. Date: 12/29/2020 Patient SUBJECTIVE Chief Complaint This information was obtained from the patient I think the drainage was from last week Allergies adhesive tape (Reaction: Itching, Rash) HPI This information was obtained from the patient The following HPI elements were documented for the patient's wound: Location: right ankle Quality: na Severity: 0 Duration: 10/10/20 Timing: denies pain Modifying Factors: compression wraps Associated Signs and Symptoms: epithelial Patient is doing well. No complaints of fevers or chills. She has been tolerating her external compression and being very compliant with her elevation. She is scheduled to go next week on a vacation to [place] with her family. She is getting good nutrition. She states she has an over the counter pair of compression stockings which she has been using on her left leg. OBJECTIVE Wound Assessment(s) WOUND #3 RIGHT, LATERAL ANKLE IS AN ACUTE DANIELS GRADE 2 DIABETIC ULCER AND HAS RECEIVED AN OUTCOME OF HEALED - no new wound(s). Initial wound encounter measurements are 0cm length x 0cm width with no measurable depth, with an area of 0 sq cm . No tunneling has been noted. No sinus tract has been noted. No undermining has been noted. There was no drainage noted. The patient reports a wound pain of level 0/10. The wound margin is attached. Wound bed has Yes epithelialization, No eschar, No slough, No granulation. The periwound skin exhibited: Edema, Dry/Scaly. The periwound skin did not exhibit: Brawny Induration, Excoriation, Induration, Callus, Crepitus, Fluctuance, Friable, Rash, Moist, Maceration, Atrophie Kim, Cyanosis, Ecchymosis, Erythema, Hemosiderosis, Pallor, Rubor. The temperature of the periwound skin is WNL. Periwound skin does not exhibit signs or symptoms of infection. Local Pulse is Palpable. Vitals Height/Length: 71 in (180.34 cm), Weight: 195 lbs (88.64 kgs), BMI: 27.2, Temperature: 97 F (36.11 C), Pulse: 73 bpm, Respiratory Rate: 16 breaths/min, Blood Pressure: 143/77 mmHg. Vital Signs Notes: states fbs 147 Physical Exam Constitutional Blood pressure normal. Pulse rate and rhythm regular. Afebrile. Height within normal limits. Weight WNL. Well developed, well nourished, and in no acute distress. Alert and oriented x3. Respiratory: Even respirations without use of accessory muscles. No intercoastal retractions noted. Even and non labored respiration. Clear to auscultation. Cardiovascular: Regular rate and rhythm. See lower extremity assessment when applicable. Right lower extremity with mild erythema, no areas of opening, positive dry skin, nontender with palpation, minimal edema.. Integumentary (Hair, Skin) See wound description. Psychiatric: Judgement and insight: Normal affect with normal thought pattern. Orientation to time, place and person: Normal affect with normal thought pattern. Recent and remote memory: Normal affect with normal thought pattern. Mood and affect: Normal affect with normal thought pattern. 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 A 2 Layers Unna Boot was applied with moderate 15-25 mmhg.. PLAN Wound Orders: WOUND #3 RIGHT, LATERAL ANKLE Cleanser Cleanse Wound with Normal Saline Compression/Edema Control Elevate leg(s) as much as possible. Avoid standing in one position for more than 10 minutes. Avoid settings with legs down. Do not cross legs when sitting. Wrap UNNA Boot toes to knee. Cover with [place]. change dressing weekly, unless otherwise directed. - calamine Gauze wrap unna boot Other orders: - pad off any bony prominence Scribing Attestation I attest, as the nurse, that I scribed these orders for the physician. Additional Orders: Topical Treatments Moisturizing lotion to surround skin. - Eucerin/triamcinolone cream to RLE Antibiotic/Antimicrobial Ointment/Cream. - Clotrimazole to the right toes Dietary Increased protein intake Follow Diabetic diet. Instruct patient to drink 6-8 glasses of water daily. Follow-Up Appointments Return Appointment 2 weeks - with Dr. Temple Return for Nurse visit: - wrap change on Saturday before patient goes out of town Hand Hygiene/Smoking Cessation Wash hands before and after wound care. Call the Wound Center at [phone] if you have signs or symptoms of infection, increased drainage, increasing odor, or unusual redness. After Wound Care hours, please notify your PCP or go to the ER. Patient has been advised to go back into external compression with the foam Unna boot. Her wounds now appear to be healed. Given her erythema I have recommended that she treat herself with the antibiotic that she has at home. She can go on her trip and we will see her this Saturday to change her dressing prior to her leaving.I will see her back the following that she returns. She will need long-term compression. Zippered stockings will probably be the best ELECTRONIC SIGNATURE(S) Signed By: Nic Temple MD Date: 12/30/2020 11:02:30 Verified/Reviewed by 12/30/20 Reinaldo BARK[place] [facility] PATIENT NAME: HANNA NELSON [facility] [address] MEDICAL REC #: [id number] [place] [address] ADMIT DATE: SERVICE DATE: 01/02/21 Wound Care Note ATTENDING PHY: Nic Temple MD [facility] of Present illness Narrative* Nic Temple MD - 01/18/2021 3:33 PM EDT WOUND CARE NOTE Name:HANNA NELSON Account: [id number] Progress Note Details Patient Name: HANNA NELSON. Date: 12/22/2020 Patient SUBJECTIVE Chief Complaint This information was obtained from the patient There's just a tingling feeling on my wounds, I wouldn't say any pain. Allergies adhesive tape (Reaction: Itching, Rash) HPI This information was obtained from the patient The following HPI elements were documented for the patient's wound: Location: right lateral leg and right lateral ankle Quality: denies pain Severity: 0/10 Duration: October 2020 Timing: denies pain Modifying Factors: bactroban, endoform, calamine unna Patient presents in follow-up for her chronic right lower extremity swelling with history of cellulitis and small ulcers to the lateral right calf and lateral right foot. Patient is doing well but was more active and on her feet this past week. Her leg is more edematous than it was prior. She has no new openings and actually has healed her lateral wound. The foot wound seems smaller and there is no erythema. Again there is no fevers or chills. She is getting good nutrition. OBJECTIVE Wound Assessment(s) WOUND #1 RIGHT, LATERAL LEG - LOWER IS A CHRONIC FULL THICKNESS CELLULITIS AND HAS RECEIVED AN OUTCOME OF Continued improvement expected post discharge. Initial wound encounter measurements are 0.1cm length x 0.1cm width x 0.1cm depth, with an area of 0.01 sq cm and a volume of 0.001 cubic cm. Adipose is exposed. No tunneling has been noted. No sinus tract has been noted. No undermining has been noted. There is a scant amount of serosanguineous drainage noted which has no odor. The patient reports a wound pain of level 0/10. The wound margin is regular. Wound bed has No epithelialization, No eschar, No slough, Yes pink, firm granulation. The periwound skin exhibited: Edema, Dry/Scaly. The periwound skin did not exhibit: Brawny Induration, Excoriation, Induration, Callus, Crepitus, Fluctuance, Friable, Rash, Moist, Maceration, Atrophie Kmi, Cyanosis, Ecchymosis, Erythema, Hemosiderosis, Pallor, Rubor. The temperature of the periwound skin is WNL. Periwound skin does not exhibit signs or symptoms of infection. Local Pulse is Palpable. WOUND #3 RIGHT, LATERAL ANKLE IS AN ACUTE DANIELS GRADE 2 DIABETIC ULCER AND HAS RECEIVED A STATUS OF NOT Healed. Initial wound encounter measurements are 0.2cm length x 0.2cm width x 0.1cm depth, with an area of 0.04 sq cm and a volume of 0.004 cubic cm. Adipose is exposed. No tunneling has been noted. No sinus tract has been noted. No undermining has been noted. There is a scant amount of serosanguineous drainage noted which has no odor. The patient reports a wound pain of level 0/10. The wound margin is attached. Wound bed has No epithelialization, No eschar, Yes slough, No granulation. The periwound skin exhibited: Edema, Dry/Scaly. The periwound skin did not exhibit: Brawny Induration, Excoriation, Induration, Callus, Crepitus, Fluctuance, Friable, Rash, Moist, Maceration, Atrophie Kim, Cyanosis, Ecchymosis, Erythema, Hemosiderosis, Pallor, Rubor. The temperature of the periwound skin is WNL. Periwound skin does not exhibit signs or symptoms of infection. Local Pulse is Palpable. Vitals Height/Length: 71 in (180.34 cm), Weight: 195 lbs (88.64 kgs), BMI: 27.2, Temperature: 97.7 F (36.5 C), Pulse: 78 bpm, Respiratory Rate: 18 breaths/min, Blood Pressure: 148/81 mmHg. Vital Signs Notes: FBS reported by patient from this mornin Physical Exam Constitutional Blood pressure normal. Pulse rate and rhythm regular. Afebrile. Height within normal limits. Weight WNL. Well developed, well nourished, and in no acute distress. Alert and oriented x3. Respiratory: Even respirations without use of accessory muscles. No intercoastal retractions noted. Even and non labored respiration. Clear to auscultation. Cardiovascular: Regular rate and rhythm. Dopplerable pedal signals. Right lower extremity without erythema, mild edema of the foot and lower leg, healed wound right lateral calf, small opening no erythema with fibrinous exudate on foot. Integumentary (Hair, Skin) See wound description. Psychiatric: Judgement and insight: Normal affect with normal thought pattern. Orientation to time, place and person: Normal affect with normal thought pattern. Recent and remote memory: Normal affect with normal thought pattern. Mood and affect: Normal affect with normal thought pattern. 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 A SELECTIVE DEBRIDEMENT WITH A TOTAL AREA debrided of 0.04 sq cm was performed by Eduardo Temple MD. Epidermis was removed along with devitalized tissue: biofilm, fibrin, and slough. The following instrument(s) were used: curette. Pain control was achieved using 2% Lidocaine Gel Topical. A time out was conducted prior to the start of the procedure. No bleeding occurred. The procedure was tolerated well with a pain level of 0 throughout and a pain level of 0 following the procedure. Post Debridement Measurements: 0.2cm length x 0.2cm width x 0.1cm depth; with an area of 0.04 sq cm and a volume of 0.004 cubic cm; WOUND #3 (DIABETIC ULCER) IS LOCATED ON THE RIGHT, LATERAL ANKLE. A MULTILAYER COMPRESSION - RIGHT PROCEDURE WAS performed by Celena Green RN. A Multi-Layer Profore Regular was applied with high 30-40 mmhg. PLAN Wound Orders: WOUND #3 RIGHT, LATERAL ANKLE Cleanser Cleanse Wound with Normal Saline Compression/Edema Control Elevate leg(s) as much as possible. Avoid standing in one position for more than 10 minutes. Avoid settings with legs down. Do not cross legs when sitting. Multi Layer Wrap to affected leg(s). - Profore (4 layer) changed weekly Dressings Apply Primary dressing. - Santyl Apply Secondary Dressing - nonborder foam Frequency - weekly Other: - Bactroban to right leg on sensitive area Scribing Attestation I attest, as the nurse, that I scribed these orders for the physician. Additional Orders: Topical Treatments Moisturizing lotion to surround skin. - Eucerin/triamcinolone cream to RLE Antibiotic/Antimicrobial Ointment/Cream. - Clotrimazole to the right toes Dietary Increased protein intake Follow Diabetic diet. Instruct patient to drink 6-8 glasses of water daily. Follow-Up Appointments Return Appointment 1 week - with Dr. Temple Hand Hygiene/Smoking Cessation Wash hands before and after wound care. Call the Wound Center at [phone] if you have signs or symptoms of infection, increased drainage, increasing odor, or unusual redness. After Wound Care hours, please notify your PCP or go to the ER. Patient has been advised to remain off her feet as much as possible over the next week. We have asked her to elevate above her heart. We will change her from an Unna boot to 4 layer compression. We will have her return in 1 week. ELECTRONIC SIGNATURE(S) Signed By: Nic Temple MD Date: 12/23/2020 13:50:25 Verified/Reviewed by 12/23/20 135Stephany APOLONIA [facility] PATIENT NAME: HANNA NELSON [address] MEDICAL REC #: [id number] [place] [address] ADMIT DATE: SERVICE DATE: 01/02/21 Wound Care Note ATTENDING PHY: Nic Temple [facility] Diagnosis Encounter for screening mammogram for malignant neoplasm of breast Other screening mammogram [facility]* Diagnosis Lower extremity ulceration, right, with fat layer exposed (HC CODE)- Primary Lower extremity ulceration, right, with fat layer exposed (HC CODE) documented in this encounter [facility] note* Diagnosis Lower extremity ulceration, right, with fat layer exposed (HC CODE) [facility] encounter [facility]* Diagnosis Chronic pain of right knee [facility] in this encounter [facility]* Diagnosis Acute pain of right shoulder documented in this encounter [facility] note* Diagnosis Cellulitis of right lower leg- Primary Cellulitis and abscess of leg, except foot Cellulitis of right lower extremity Cellulitis and abscess of leg, except foot Peripheral vascular disease (HC CODE) Peripheral vascular disease, unspecified Paroxysmal atrial fibrillation (HC CODE) Atrial fibrillation Hypothyroidism due to acquired atrophy of thyroid Primary hypertension Unspecified essential hypertension Type 2 diabetes mellitus treated with insulin (HC CODE) NAYELY, resolved Acute kidney failure, unspecified Mixed hyperlipidemia documented in this encounter [facility]* Diagnosis Hyperglycemia- Primary Other abnormal glucose documented in this encounter [facility] note* Diagnosis Uncontrolled type 2 diabetes mellitus with hyperglycemia (HCC)- Primary Hyperkalemia Hyperpotassemia Urinary tract infection without hematuria, site unspecified Uncontrolled type 2 diabetes mellitus with hyperglycemia (HCC) Diabetic ulcer of other part of right foot associated with diabetes mellitus due to underlying condition, with necrosis of muscle (HCC) [facility] Diagnosis Diabetic ulcer of other part of right foot associated with diabetes mellitus due to underlying condition, with necrosis of muscle (HCC)- Primary [facility] Diagnosis Diabetic ulcer of other part of right foot associated with diabetes mellitus due to underlying condition, with necrosis of muscle (HCC)- Primary [facility]* Diagnosis Diabetic ulcer of other part of right foot associated with diabetes mellitus due to underlying condition, with necrosis of muscle (HCC)- Primary Uncontrolled type 2 diabetes mellitus with hyperglycemia (HCC) 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) Pes planus of both feet 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 [facility]* Diagnosis Memory loss- Primary [facility]* Diagnosis Diabetic ulcer of other part of right foot associated with diabetes mellitus due to underlying condition, with necrosis of muscle (HCC)- Primary Diabetic ulcer of right foot associated with diabetes mellitus due to underlying condition, with necrosis of muscle, unspecified part of foot (HCC) Uncontrolled type 2 diabetes mellitus with hyperglycemia (HCC) Pes planus of both feet 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) [facility]* Diagnosis Diabetic ulcer of right foot associated with diabetes mellitus due to underlying condition, with necrosis of muscle, unspecified part of foot (HCC)- Primary 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) Pes planus of both feet 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 Diabetic ulcer of other part of right foot associated with diabetes mellitus due to underlying condition, with necrosis of muscle (HCC) [facility]* Diagnosis 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- Primary 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) Diabetic ulcer of right foot associated with diabetes mellitus due to underlying condition, with necrosis of muscle, unspecified part of foot (HCC) Diabetic ulcer of other part of right foot associated with diabetes mellitus due to underlying condition, with necrosis of muscle (HCC) Pes planus of both feet Uncontrolled type 2 diabetes mellitus with hyperglycemia (HCC) [facility] Diagnosis Diabetic ulcer of other part of right foot associated with diabetes mellitus due to underlying condition, with necrosis of muscle (HCC)- Primary 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) 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 Pes planus of both feet Diabetic ulcer of right foot associated with diabetes mellitus due to underlying condition, with necrosis of muscle, unspecified part of foot (HCC) Uncontrolled type 2 diabetes mellitus with hyperglycemia (HCC) [facility] Diagnosis 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)- Primary Diabetic ulcer of other part of right foot associated with diabetes mellitus due to underlying condition, with necrosis of muscle (HCC) [facility]* Diagnosis Confusion- Primary Unspecified psychosis Confusion Unspecified psychosis Cystitis Unspecified cystitis Right arm weakness Other musculoskeletal symptoms referable to limbs [facility] Diagnosis 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)- Primary Diabetic ulcer of other part of right foot associated with diabetes mellitus due to underlying condition, with necrosis of muscle (HCC) [facility] Diagnosis Diabetic ulcer of other part of right foot associated with diabetes mellitus due to underlying condition, with necrosis of muscle (HCC)- Primary 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) Pes planus of both feet Diabetic ulcer of right foot associated with diabetes mellitus due to underlying condition, with necrosis of muscle, unspecified part of foot (HCC) 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 Uncontrolled type 2 diabetes mellitus with hyperglycemia (HCC) [facility]* Diagnosis Type 2 diabetes mellitus with hyperglycemia, with long-term current use of insulin (HCC)- Primary Essential hypertension Unspecified essential hypertension Mixed hyperlipidemia [facility]* Diagnosis 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)- Primary Diabetic ulcer of right foot associated with diabetes mellitus due to underlying condition, with necrosis of muscle, unspecified part of foot (HCC) Pes planus of both feet 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 Uncontrolled type 2 diabetes mellitus with hyperglycemia (HCC) [facility] Diagnosis 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)- Primary Diabetic ulcer of right foot associated with diabetes mellitus due to underlying condition, with necrosis of muscle, unspecified part of foot (HCC) Pes planus of both feet 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 Uncontrolled type 2 diabetes mellitus with hyperglycemia (HCC) [facility]* Diagnosis Bacteremia- Primary Bacteremia SIRS (systemic inflammatory response syndrome) (HCC) Systemic inflammatory response syndrome, unspecified Severe sepsis (HCC) 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, with necrosis of muscle (HCC) Bilateral calf pain Pain in soft tissues of limb 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) Sepsis (HCC) [facility] Diagnosis Ulcer of right foot with fat layer exposed (HCC)- Primary Diabetic polyneuropathy associated with type 2 diabetes mellitus (HCC) Pes planus of both feet 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 Uncontrolled type 2 diabetes mellitus with hyperglycemia (HCC) Charcot's joint of foot, right [facility]* Diagnosis Ulcer of right foot with fat layer exposed (HCC)- Primary Diabetic polyneuropathy associated with type 2 diabetes mellitus (HCC) Pes planus of both feet 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 Diagnosis Atrial fibrillation with rapid ventricular response (HCC)- Primary Atrial fibrillation with rapid ventricular response (HCC) NAYELY (acute kidney injury) (HCC) Chronic atrial fibrillation with RVR (HCC) 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, with necrosis of muscle (HCC) [facility]* Diagnosis Closed fracture of left hip, initial encounter ([facility])- Primary Closed fracture of left hip, initial encounter ([facility]) Osteoporosis, unspecified osteoporosis type, unspecified pathological fracture presence [facility]* Auth/Cert (Routine) Specialty Diagnoses / Procedures Referred By Contac t Referred To Contact Diagnoses Closed fracture of left hip, initial encounter ([facility]) Procedures .. Janet Houston DO [address] [place] [address] Phone: tel: fax: [facility] [address] [place] [address] Phone: tel: Referral ID Status Reason Start Date Expiration Date Visits Re quested Visits Authorized [id number] [facility] Discharge Instructions * Instructions* Tesfaye Su - 03/30/2020 You have been treated at [facility] for reasons of wound healing. WOUND CARE: With Dressing Changes - wash your hands prior to starting and after you finish and dispose of old materials properly. The following wound care procedure has been ordered for you in treating your wound: Right Second Toe-roll alginate to improve space and double alginate to wound Change daily ' Return in one week SPECIAL INSTRUCTIONS: Nutrition: Increase dietary protein intake as instructed. Foot Wear: Follow specialty footwear instructions as advised. Off loading/Pressure Reduce: SPECIAL INSTRUCTIONS: Nutrition: Increase dietary protein intake as instructed. Foot Wear: Follow specialty footwear instructions as advised. Off loading/Pressure Reduce: PRECAUTIONS: If any of the following occur, contact [phone] immediately or go to your nearest emergency room!! Fever over 101 degrees Increase in drainage Redness around wound and/or streaking Odor or drainage Increase in pain Increased swelling Bleeding Need for compression bandage changes (slippage, breakthrough drainage) IF YOU ARE A DIABETIC: Gently dry well including between your toes Inspect feet/legs DAILY for skin problems, blisters, etc. Wear socks/stockings at all times Tell us if you need assistance putting on your socks or shoes Elevate your feet often, if swelling reaches your legs Wear compression garments as instructed Call us if you are sick, have a cold or flu HOME MEDICATIONS AT DISCHARGE Warning, if you take acetaminophen products: No more than 3Gms or 3000mg of acetaminophen (Tylenol)should be taken daily (eg. 6 extra-strength Tylenol). Be aware that multiple medications contain tylenol products(eg.vicodin, lortab, percocet, darvocet, and nonaspirin pain relievers). FUTURE VISIT INFORMATION: Call us if you are unable to come, leave a message if unable to speak to a staff member Every effort will be made to keep your scheduled appointment, [facility]. In that case we will reschedule your treatments as soon as possible. Your signature verifies that we have reviewed this document and that you understand the importance of the information above and acknowledge receipt of same. Failure to comply with these reminders mayresult in delay of your care and/or termination of treatment. If you have any questions, please call us at [phone] documented in this encounter* Instructions* Tesfaye Su - 04/06/2020 You have been treated at [facility] for reasons of wound healing. WOUND CARE: With Dressing Changes - wash your hands prior to starting and after you finish and dispose of old materials properly. The following wound care procedure has been ordered for you in treating your wound: CONGRATULATIONS, YOUR WOUND IS HEALED! 1. Check your skin daily for reddened areas, abrasions, or sores. If a new wound is noted call, please call the wound clinic at [phone] for an appointment. 2. Clean and dry your skin, using mild soap and warm water (not hot) daily. 3. If your skin appears dry apply lotion daily. 4. The newly healed skin will be tender and fragile for several weeks. Please pad and protect this area and avoid re-injury. 5. Wear well fitting shoes and white socks. 6. Resume your ordinary activities as tolerated. 7. Maintain a nutritious diet avoiding alcohol, caffeine, and smoking. 8. Return to your primary care physician for all of your health issues and medications. 9. For leg wounds, continue to use compression stockings and keep your legs elevated above the level of the heart as directed in the Wound Care Center. 10. Replace compression stockings every six months to ensure proper fit. SPECIAL INSTRUCTIONS: Nutrition: Increase dietary protein intake as instructed. Foot Wear: Follow specialty footwear instructions as advised. Off loading/Pressure Reduce: PRECAUTIONS: If any of the following occur, contact [phone] immediately or go to your nearest emergency room!! Fever over 101 degrees Increase in drainage Redness around wound and/or streaking Odor or drainage Increase in pain Increased swelling Bleeding Need for compression bandage changes (slippage, breakthrough drainage) IF YOU ARE A DIABETIC: Gently dry well including between your toes Inspect feet/legs DAILY for skin problems, blisters, etc. Wear socks/stockings at all times Tell us if you need assistance putting on your socks or shoes Elevate your feet often, if swelling reaches your legs Wear compression garments as instructed Call us if you are sick, have a cold or flu HOME MEDICATIONS AT DISCHARGE Warning, if you take acetaminophen products: No more than 3Gms or 3000mg of acetaminophen (Tylenol)should be taken daily (eg. 6 extra-strength Tylenol). Be aware that multiple medications contain tylenol products(eg.vicodin, lortab, percocet, darvocet, and nonaspirin pain relievers). FUTURE VISIT INFORMATION: Call us if you are unable to come, leave a message if unable to speak to a staff member Every effort will be made to keep your scheduled appointment, [facility]. In that case we will reschedule your treatments as soon as possible. Your signature verifies that we have reviewed this document and that you understand the importance of the information above and acknowledge receipt of same. Failure to comply with these reminders mayresult in delay of your care and/or termination of treatment. If you have any questions, please call us at [phone] documented in this encounter* Instructions* Brooke Cooper RN - 10/10/2020 You have been treated at [facility] for reasons of wound healing. WOUND CARE: With Dressing Changes - wash your hands prior to starting and after you finish and dispose of old materials properly. The following wound care procedure has been ordered for you in treating your wound: Cleanse with Vashe Apply Collagen to wound bed, alginate, gauze Cover with border gauze Change Every other day Return in TWO weeks SPECIAL INSTRUCTIONS: Nutrition: Increase dietary protein intake as instructed. Foot Wear: Follow specialty footwear instructions as advised. Off loading/Pressure Reduce: PRECAUTIONS: If any of the following occur, contact [phone] immediately or go to your nearest emergency room!! Fever over 101 degrees Increase in drainage Redness around wound and/or streaking Odor or drainage Increase in pain Increased swelling Bleeding Need for compression bandage changes (slippage, breakthrough drainage) IF YOU ARE A DIABETIC: Gently dry well including between your toes Inspect feet/legs DAILY for skin problems, blisters, etc. Wear socks/stockings at all times Tell us if you need assistance putting on your socks or shoes Elevate your feet often, if swelling reaches your legs Wear compression garments as instructed Call us if you are sick, have a cold or flu HOME MEDICATIONS AT DISCHARGE Warning, if you take acetaminophen products: No more than 3Gms or 3000mg of acetaminophen (Tylenol)should be taken daily (eg. 6 extra-strength Tylenol). Be aware that multiple medications contain tylenol products(eg.vicodin, lortab, percocet, darvocet, and nonaspirin pain relievers). FUTURE VISIT INFORMATION: Call us if you are unable to come, leave a message if unable to speak to a staff member Every effort will be made to keep your scheduled appointment, occasionally [facility]. In that case we will reschedule your treatments as soon as possible. Your signature verifies that we have reviewed this document and that you understand the importance of the information above and acknowledge receipt of same. Failure to comply with these reminders mayresult in delay of your care and/or termination of treatment. If you have any questions, please call us at [phone] documented in this encounter* Instructions* Jacquelin Ray MSW,VIKTOR-S - 10/16/2020 Patient Name: Hanna Nelson : 1940 Transfering facility: [facility] Admit date: 10/15/2020 Primary Diagnosis: cellulitis Primary Care Physician: Lisy Pace Receiving facility: Destination - Admitted Since 10/15/2020 Service Provider Selected Services Address Phone Patient Preferred Rehabilitation [facility] [address] [facility] [id number] Transfer date: 10/21/20 Preadmission Screening: N/A PATIENT INFORMATION Name: Hanna Al. Rep.: Hi Relationship: son Work Phone: Address: [address] [place] [id number] SSN: [id number] : 1940 Marital Status: Unknown Age: [age] year old Sex: female Mentation: Alert and oriented x3 Primary Insurance:Traditional Medicare, Policy # [id number] Secondary Insurance:None Private Pay: no Last Weight: 91 kg (200 lb 11.2 oz) FUNCTIONING 1 = Independent 2 = Supervision- cues or assist 1-2 x 7days 3 = Limited Assist-physical help 4 = Extensive Assist 5 = Dependent- full staff performance Hearing: Adequate Bathin Groomin Speech: Clear Bed Mobility: 3 Medication Administration: 2 Expression: Always Dressin Toilet Use: 4 Bladder Continence: usually continent; sometimes incontinent Bladder Appliances: pad; brief Eatin Transfer: 4 Bowel Status: 10/21/20 Last Bowel Movement: 10/20/20 Bowel Rx: Immunization History Administered Date(s) Administered TD (Tetanus/diphtheria) 06/30/2017 ASSESSMENT AND RECOMMENDATIONS Psychosocial Information: Pain Management: Range of Pain in last 48 hrs: 0-10 Location(s): Right, Leg Duration: Constant Characteristic: Aching, throbbing, sore Effective Pain Relief Efforts: Medication Community Referrals: Nutritional Status: Appetite: Good Percentage: 50-100% Respiratory Status: Rm Air Orders Placed This Encounter Total Support Skin Integrity Intact: No Pressure Sores: Diabetic foot ulcer; Right leg cellulitis (Describe location and stage): Right heel unstageable Living Will: Durable Power of Manager Functional: Seeking Additional Treatment: Contact your Primary Care or Family physician immediately if you develop any new or uncontrolled problems such as: Severe nausea/vomiting, increased pain, fever greater than 101 degrees for 24 hours,difficulty breathing, unusual bleeding, sudden weight gain. If you have heart failure, notify your physician if you gain 2 pounds in a day or 5 pounds in a week. Clothing, Personal Belongings & Valuables: Clothes Verified: No changes Clothes List: Underwear, Pants/jeans, Shoes/boots, Socks/stockings, Shirt/blouse, Coat/jacket, 1 bag Clothes Disposition: Patient Belongings Verified: No changes Belongings List: None Belongings Disposition: Patient Valuables verified: No changes Valuables List: Ring, Bracelet Valuables Disposition: Patient, Spouse(bracelet to son) If you currently smoke or if you have smoked in the last year, please know that smoking is harmful to your health and you are strongly advised to stop. Call [employer] at or Toll [phone] for information about a free Stop Smoking Group. Surgical Procedures: Communicable Diseases: MRSA: no VRE: no C.Diff: no Written documentation has been provided to the patient and or caregiver which addresses education regarding discharge medications. documented in this encounter* Instructions* Katey Herrera, RN - 10/24/2020 You have been treated at [facility] for reasons of wound healing. WOUND CARE: With Dressing Changes - wash your hands prior to starting and after you finish and dispose of old materials properly. The following wound care procedure has been ordered for you in treating your wound: Cleanse with Vashe Apply Collagen to wound bed, alginate, gauze Cover with border gauze Change Every other day Return in TWO weeks SPECIAL INSTRUCTIONS: Nutrition: Increase dietary protein intake as instructed. Foot Wear: Follow specialty footwear instructions as advised. Off loading/Pressure Reduce: PRECAUTIONS: If any of the following occur, contact [phone] immediately or go to your nearest emergency room!! Fever over 101 degrees Increase in drainage Redness around wound and/or streaking Odor or drainage Increase in pain Increased swelling Bleeding Need for compression bandage changes (slippage, breakthrough drainage) IF YOU ARE A DIABETIC: Gently dry well including between your toes Inspect feet/legs DAILY for skin problems, blisters, etc. Wear socks/stockings at all times Tell us if you need assistance putting on your socks or shoes Elevate your feet often, if swelling reaches your legs Wear compression garments as instructed Call us if you are sick, have a cold or flu HOME MEDICATIONS AT DISCHARGE Warning, if you take acetaminophen products: No more than 3Gms or 3000mg of acetaminophen (Tylenol)should be taken daily (eg. 6 extra-strength Tylenol). Be aware that multiple medications contain tylenol products(eg.vicodin, lortab, percocet, darvocet, and nonaspirin pain relievers). FUTURE VISIT INFORMATION: Call us if you are unable to come, leave a message if unable to speak to a staff member Every effort will be made to keep your scheduled appointment, occasionally [facility]. In that case we will reschedule your treatments as soon as possible. Your signature verifies that we have reviewed this document and that you understand the importance of the information above and acknowledge receipt of same. Failure to comply with these reminders mayresult in delay of your care and/or termination of treatment. If you have any questions, please call us at [phone] documented in this encounter Advance Directives No Advanced Directives Records FoundDocuments on File Type Date Recorded Patient Chemical Dependency Therapist Expl anation Power of Manager Functional 12/08/2024 11:54 AM Date Activated Date Inactivated Comments 12/03/2024 12:02 PM 12/05/2024 1:52 PM Date Activated Date Inactivated Comments 09/18/2024 6:54 PM 09/24/2024 5:18 PM Date Activated Date Inactivated Comments 11/10/2023 7:07 PM 11/12/2023 4:41 PM Date Activated Date Inactivated Comments 10/17/2020 5:19 PM 10/21/2020 8:55 PM Date Activated Date Inactivated Comments 05/15/2019 2:27 PM 05/16/2019 12:51 PM Latest Code Status on File Code Status Date Activated Date Inactivated Comments Total Support 05/15/2019 2:27 PM 05/16/2019 12:51 PM Latest Code Status on File Code Status Date Activated Date Inactivated Comments Total Support 05/15/2019 2:27 PM 05/16/2019 12:51 PM Latest Code Status on File Code Status Date Activated Date Inactivated Comments Total Support 10/17/2020 5:19 PM Total Support 05/15/2019 2:27 PM 05/16/2019 12:51 PM Latest Code Status on File Code Status Date Activated Date Inactivated Comments Total Support 10/17/2020 5:19 PM 10/21/2020 8:55 PM Total Support 05/15/2019 2:27 PM 05/16/2019 12:51 PM Latest Code Status on File Code Status Date Activated Date Inactivated Comments Total Support 10/17/2020 5:19 PM 10/21/2020 8:55 PM Code Status History Code Status Date Activated Date Inactivated Comments Total Support 05/15/2019 2:27 PM 05/16/2019 12:51 PM Date Activated Date Inactivated Comments 10/17/2020 5:19 PM 10/21/2020 8:55 PM Date Activated Date Inactivated Comments 05/15/2019 2:27 PM 05/16/2019 12:51 PM Date Activated Date Inactivated Comments 11/10/2023 7:07 PM Date Activated Date Inactivated Comments 09/18/2024 6:54 PM 09/24/2024 5:18 PM Date Activated Date Inactivated Comments 09/18/2024 6:54 PM 09/24/2024 5:18 PM Documents on File Type Date Recorded Patient Chemical Dependency Therapist Expl anation Power of Manager Functional 01/25/2025 11:25 PM Power of Manager Functional 12/08/2024 11:54 AM Hi Nelson Date Activated Date Inactivated Comments 01/26/2025 9:47 AM Date Activated Date Inactivated Comments 12/03/2024 12:02 PM 12/05/2024 1:52 PM Date Activated Date Inactivated Comments 09/18/2024 6:54 PM 09/24/2024 5:18 PM Healthcare Agents on File Name Relationship Healthcare Agent Relationshi p Communication Hi Clark Health Care Agent Documents on File Type Date Recorded Patient Chemical Dependency Therapist Expl anation Power of Manager Functional 01/25/2025 11:25 PM Power of Manager Functional 12/08/2024 11:54 AM Hi Nelson Date Activated Date Inactivated Comments 01/26/2025 9:47 AM 02/02/2025 4:26 PM Date Activated Date Inactivated Comments 12/03/2024 12:02 PM 12/05/2024 1:52 PM Date Activated Date Inactivated Comments 09/18/2024 6:54 PM 09/24/2024 5:18 PM Healthcare Agents on File Name Relationship Healthcare Agent Relationshi p Communication Hi Clark Health Care Agent Date Activated Date Inactivated Comments 01/26/2025 9:47 AM 02/02/2025 4:26 PM Healthcare Agents on File Name Relationship Healthcare Agent Relationshi p Communication Hi Clark Health Care Agent Healthcare Agents on File Name Relationship Healthcare Agent Relationshi p Communication Hi Clark Health Care Agent Healthcare Agents on File Name Relationship Healthcare Agent Relationshi p Communication Hi Clark Health Care Agent Date Activated Date Inactivated Comments 03/13/2025 12:17 AM 03/15/2025 7:00 PM Date Activated Date Inactivated Comments 01/26/2025 9:47 AM 02/02/2025 4:26 PM Date Activated Date Inactivated Comments 12/03/2024 12:02 PM 12/05/2024 1:52 PM Date Activated Date Inactivated Comments 09/18/2024 6:54 PM 09/24/2024 5:18 PM Healthcare Agents on File Name Relationship Healthcare Agent Relationshi p Communication Hi Clark Health Care Agent Date Activated Date Inactivated Comments 03/20/2025 6:18 PM Date Activated Date Inactivated Comments 03/13/2025 12:17 AM 03/15/2025 7:00 PM Date Activated Date Inactivated Comments 01/26/2025 9:47 AM 02/02/2025 4:26 PM Date Activated Date Inactivated Comments 12/03/2024 12:02 PM 12/05/2024 1:52 PM Date Activated Date Inactivated Comments 09/18/2024 6:54 PM 09/24/2024 5:18 PM Healthcare Agents on File Name Relationship Healthcare Agent Relationshi p Communication Hi Clark Health Care Agent Date Activated Date Inactivated Comments 03/20/2025 6:18 PM 03/24/2025 7:34 PM Healthcare Agents on File Name Relationship Healthcare Agent Relationshi p Communication Hi Clark Health Care Agent Date Activated Date Inactivated Comments 03/20/2025 6:18 PM 03/24/2025 7:34 PM Date Activated Date Inactivated Comments 03/13/2025 12:17 AM 03/15/2025 7:00 PM Date Activated Date Inactivated Comments 01/26/2025 9:47 AM 02/02/2025 4:26 PM Date Activated Date Inactivated Comments 12/03/2024 12:02 PM 12/05/2024 1:52 PM Date Activated Date Inactivated Comments 09/18/2024 6:54 PM 09/24/2024 5:18 PM Healthcare Agents on File Name Relationship Healthcare Agent [facility] p Communication Hi Clark Health Care Agent Reason for Referral Status Reason Specialty Diagnoses / Procedures Referre d By Contact Referred To Contact Closed Diagnoses Essential hypertension Paroxysmal atrial fibrillation (HC CODE) Palpitation Type 2 diabetes mellitus with other specified complication, without long-term current use of insulin (HC CODE) Precordial pain Procedures NM MYOCARDIAL PERFUSION IMAGING NM MYOCARDIAL PERFUSION IMAGING Brian Wilson MD [address] [place] [address] Status Reason Specialty Diagnoses / Procedures Referred By Contact Referred To Contact Pending Review Specialty Services Required Occupational Therapy Diagnoses So Yusuf MD [address] [place] [address] Status Reason Specialty Diagnoses / Procedures Referred By Contact Referred To Contact Pending Review Specialty Services Required Physical Therapy Diagnoses So Yusuf MD [address] [place] [address] Status Reason Specialty Diagnoses / Procedures Referre d By Contact Referred To Contact Augusta Weston, 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 [address] [place] [address] Assessments Diagnosis Essential hypertension Unspecified essential hypertension Paroxysmal atrial fibrillation (HC CODE) Atrial fibrillation Palpitation Palpitations Type 2 diabetes mellitus with other specified complication, without long-term current use of insulin ( ) Precordial pain Diagnosis Cellulitis- Primary Cellulitis and abscess of unspecified site Cellulitis of right lower extremity Cellulitis and abscess of leg, except foot Essential hypertension Unspecified essential hypertension Hyponatremia Hyposmolality and/or hyponatremia Other specified hypothyroidism Paroxysmal atrial fibrillation (HC CODE) Atrial fibrillation Type 2 diabetes mellitus with other specified complication, without long-term current use of insulin (HC CODE) SIRS (systemic inflammatory response syndrome) (HC CODE) Systemic inflammatory response syndrome, unspecified NAYELY (acute kidney injury) (HC CODE) Acute kidney failure, unspecified Weakness Other malaise and fatigue Hospital Course * So Nielsen MD - 10/21/2020 11:30 AM EST [facility] Transition of Care Form/Discharge Summary DEMOGRAPHICS PATIENT NAME: Hanna Nelson : 1940 DATE ADMITTED: 10/15/2020 DATE OF DISCHARGE: 10/21/2020 DISCHARGING PHYSICIAN AND CONTACT: So Nielsen Phone: [phone] PHYSICIANS CONSULTED: Treatment Team: Consulting Physician: Nader Navarro MD PCP: Lisy Pace [phone] Discharge Facility: [facility] Accepting Physician: F Physician Phone Number: MEDICAL SYNOPSIS REASON FOR ADMISSION/CHIEF COMPLAINT: Cellulitis [L03.90] PRINCIPAL DIAGNOSIS* AND HOSPITAL PROBLEM LIST: Principal Problem: Cellulitis PRIOR TO ADMISSION PROBLEM LIST: Patient Active Problem List Diagnosis Essential hypertension Type 2 diabetes mellitus (HC CODE) Arthritis Hypothyroidism Palpitation Hyponatremia Spinal stenosis of lumbar region with neurogenic claudication Paroxysmal atrial fibrillation (HC CODE) Postoperative ileus (HC CODE) Paraparesis (HC CODE) Type 2 diabetes mellitus with right diabetic foot ulcer (HC CODE) Ataxia Cellulitis HOSPITAL COURSE AND TREATMENT: As per HPI " Hanna Nelson is an 80 year old female who has a history of hypertension, diabetis, lumbar radiculopathy, hypothyroidism, diabetic foot ulcer who presents to [facility] s/p fall and complaints of generalized weakness and subjective fevers for ~2 days. The patient states she became lightheaded and lost her balance subsequently falling and hitting the back of her head on the floor. She is on Eliquis but denies losing consciousness. There is no evidence of laceration or abrasion to her head on exam. A CTH without contrast was non-acute. The patient has a chronic right foot diabetic ulcer but has noticed worsening erythema and swelling of the right lowerextremity on Saturday. She states she had a fever of ~102F as well. She states that she may have minutely injured her right leg while attempting to sit in her chair sometime on Saturday. The patient alsoendorses a remote history of MRSA osteomyelitis of the left foot. She was noted to have a low-gradetemp (99F) in the ER as well as hypotension. Blood cultures were obtained and the patient was givenfluids and started on Vanc and Zosyn. A urinalysis with reflex to culture is pending. The patient had an XR of the right tib/fib which are without evidence of an acute fracture. A venous doppler of the RLE was also obtained and did not show any evidence of VTE/DVT. A CT of the right lower extremitywas completed and did not reveal evidence of osteomyelitis but did reveal diffuse edema and dorsal skin thickening. Laboratory work-up reveals some hyponatremia (125) as well as renal insufficiency (sCr 1.5, BUN 48) compared to lab work completed in August of this year. Her lactic acid is noted colin 1.6 and she has a leukocytosis with left shift. She currently denies fever or chills but endorses malaise. She states she has been eating and drinking normally but has noted decreased urine output. She denies CP or SOB. She does state that over the past few days she has had some palpitations. She denies n/v/d. She denies any current urinary complaints. The patient will be admitted for IV antibiotics and fluids. 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 Assessment and plan: Right lower extremity cellulitis with right lower committee heel ulcer unstageable, present on admission: Has suboptimal response to IV ceftriaxone and vancomycin, will change antibiotic to linezolid, MRSA nares is negative, wound showing polymicrobial growth including Corynebacterium, rare gram-negative bacilli, coagulase-negative staph and Streptococcus, was being treated with linezolid and cefepime, will change antibiotic to Augmentin, plan is to treat for 10 more days, wound care per Dr. Navarro. Atrial fibrillation with RVR: Heart rate improved, reverted to sinus rhythm, continue with atenolol, Eliquis, DC aspirin as patient does not want to take it fearing increased risk of bleeding Diarrhea: Stool for C. difficile negative, diarrhea improved, DC fluids Urinary urgency: Improved, denies any pain or difficulty with micturition, suspect secondary to hyperactive colon From ongoing diarrhea, will continue to monitor, will not get UA as patient has already been on antibiotic NAYELY: Prerenal, suspect ATN, is on gentle IV hydration, kidney function improving Hyponatremia: Mild, improved Hypokalemia: Repleted Hypothyroidism: Levothyroxine Physical deconditioning PT OT eval, will need rehab at discharge MEDICATIONS: Medication List Start Details amoxicillin-potassium clavulanate 875-125 mg tablet Commonly known as: AUGMENTIN Take 1 Tab by mouth every 12 hours oxyCODONE 5 mg tablet Commonly known as: ROXICODONE Take 2 Tab by mouth every 6 hours as needed Doctor's comments: Days' Supply = 3 Modify Details atenoloL 25 mg tablet Commonly known as: TENORMIN What changed: medication strength how much to take when to take this Take 1 Tab by mouth every 12 hours empagliflozin 10 mg tablet Commonly known as: JARDIANCE What changed: how much to take Take 1 Tab by mouth daily before breakfast Continue Details acetaminophen 325 mg tablet Commonly known as: TYLENOL Take 2 Tabs by mouth every 4 hours as needed. apixaban 5 mg tablet Commonly known as: Eliquis Take 1 Tab by mouth two times a day aspirin 81 mg enteric-coated tablet Commonly known as: ASA EC Take by mouth daily. AtorvaSTATin 20 mg tablet Commonly known as: LIPITOR Take 1 Tab by mouth daily Blood Sugar Diagnostic Strip Qd to bid; dispense brand insurance will cover CENTRUM SILVER ORAL Take 1 Tab by mouth daily. fenofibrate 160 mg tablet Commonly known as: LOFIBRA Take 1 Tab by mouth daily fluticasone propionate 50 mcg/actuation nasal spray Commonly known as: FLONASE 2 Sprays by Each Nostril route daily gabapentin 300 mg capsule Commonly known as: NEURONTIN Take 1 Cap by mouth three times a day Doctor's comments: Days' Supply = 90 glimepiride 4 mg tablet Commonly known as: AMARYL Take 1 Tab by mouth two times a day ibuprofen 400 mg tablet Commonly known as: MOTRIN Take 1 Tab by mouth two times a day. lancets 30 gauge Misc by Miscellaneous route Qd to bid levothyroxine 100 mcg tablet Commonly known as: SYNTHROID Take 1 Tab by mouth daily before breakfast metFORMIN 500 mg SR-tablet 24 Hr Commonly known as: GLUCOPHAGE XR Take 2 Tabs by mouth twice a day before meals methocarbamoL 750 mg tablet Commonly known as: ROBAXIN Take 1 Tab by mouth three times a day as needed Stop amLODIPine 2.5 mg tablet Commonly known as: NORVASC lisinopriL 40 mg tablet Commonly known as: PRINIVIL,ZESTRIL Where to Get Your Medications These medications were sent to [id number] - [place], [place] - [address] [phone] [facility] [place] [address] amoxicillin-potassium clavulanate 875-125 mg tablet atenoloL 25 mg tablet Information about where to get these medications is not yet available Ask your nurse or doctor about these medications oxyCODONE 5 mg tablet ALLERGIES and INTOLERANCES: Allergies Allergen Reactions Tape 1"X5yd [Adhesive Tape] Rash Redness. Avoids. Prefers paper tape DATA PHYSICAL EXAM: GENERAL APPEARANCE: NAD, A&O X3 HEENT: PERRL, MMM Neck: Supple, no thyromegaly. CV: RRR, no added sounds heard Pulm: CTA B Abd: +BS, NT, ND. : WNL Extr: No edema, no cyanosis, no clubbing MS: 5/5 strength all groups, major joints grossly normal Neuro: Alert, CN II-XII intact, reflexes symmetric, Skin: dry, warm LAST SET OF VITALS: BP: (P) 98/53 Temp: (P) 97.6 F (36.4 C) Pulse: (P) 72 Resp: (P) 19 Height: 180.3 cm (5' 11") Body Surface Area: 2.14 Body Mass Index: (!) 28.05 Last Weight 10/16/20 91 kg (200 lb 11.2 oz) FINAL BASIC LABS: CMP or BMP: Lab Results Component Value Date NA 135 10/21/2020 POTASSIUM 3.8 10/21/2020 CL 105 10/21/2020 CO2 22 10/21/2020 GLUCOSE 181 (H) 10/21/2020 GLUCOSE 205 (H) 10/21/2020 BUN 23 10/21/2020 CREATININE 0.7 10/21/2020 CA 8.4 (L) 10/21/2020 TP 6.3 10/16/2020 ALB 2.9 (L) 10/16/2020 ALKP 43 10/16/2020 AST 27 10/16/2020 ALT 17 10/16/2020 TBIL 0.5 10/16/2020 CBC: Lab Results Component Value Date WBC 12.8 (H) 10/17/2020 RBC 3.14 (L) 10/17/2020 HEMOGLOBIN 9.7 (L) 10/17/2020 HEMATOCRIT 29.1 (L) 10/17/2020 PLATELETS 138 10/17/2020 MCV 92.7 10/17/2020 MCH 30.9 10/17/2020 MCHC 33.3 10/17/2020 RDW 14.8 10/17/2020 PT/PTT/INR: No results found for: PT, PTT, INR DIAGNOSTIC IMAGES: XR LEG TIBIA / FIBULA RIGHT 2 VIEWS Result Date: 10/16/2020 EXAMINATION: XR LEG TIBIA / FIBULA RIGHT 2 VIEWS. 10/16/2020 12:12 AM CLINICAL: Right leg pain. Fall.Screening wounds. COMPARISON: None. TECHNIQUE: Two radiographs of the right tibia and fibula were obtained. FINDINGS: No acute fracture is present. 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 There is subcutaneous edema of the calf with more focal area of soft tissue edema at the medial distal calf. No soft tissue gas is present. 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 No periostitis or bone erosion is visualized. IMPRESSION: No fracture of the right tibia and fibula. There is subcutaneous edema diffusely in thecalf with more focal soft tissue edema at the distal medial calf. DICTATED BY: SAIDA QUINTERO MD Workstation ID:[id number] DEXA BONE DENSITY SCAN AXIAL Result Date: 09/23/2020 09/23/2020 1:16 PM DXA BONE MINERAL DENSITY SCAN: INDICATION: Osteoporosis screening MACHINE: Zighra COMMENT: The bone mineral density (BMD) from L1 to L4 is 1.551 g/cm2 with T-score of 3.1, inthe normal range. The measurement is exaggerated by degenerative changes. The BMD in the left totalhip is 0.872 g/cm2 with T-score of -1.1, in the osteopenia range. The BMD in the left femoral neck is 0.833 g/cm2 with T-score of -1.5, in the osteopenia range. The BMD in the right radius is 0.761 gm/cm2 with a T-score of -1.3, in the osteopenia range. The FRAX 10-year probability for a major osteoporotic fracture is 31.7% and for a hip fracture is 17.6%. IMPRESSION: Osteopenia at some areas as described above. DICTATED BY: SHIRA DOS SANTOS MD Workstation ID:[id number] NM MYOCARDIAL PERFUSION IMAGING Result Date: 10/04/2020 CARDIAC STRESS TEST Procedure Date: 10/04/2020 Patient Name: Hanna Nelson :1940 INDICATION FOR STUDY To evaluate the extent and severity of coronary artery disease PROCEDURE DESCRIPTION: Procedure: ELECTROCARDIOGRAPHIC DATA: Baseline ekg showed sinus rhythm with nonspecific ST changes. With IV regadenoson, no significant ST segment deviation is noted. No significant arhythmias seen EKG portion of this study is negative for ischemia. CONCLUSIONS: Pharmacological stress test with regadenoson Negative Lexiscan EKG portion for ischemia No arrhythmia Normal blood pressure and heart rate response NUCLEAR IMAGES: Patient received a dose of 11.1 mCi of Technetium 99m Myoview at rest and received a dose of 38.8 mCi of the same tracer at stress. Gating was applied to these images for calculation of ejection fraction and assessment of wall motion. Attenuation correction was applied to these images as well. Rest Images Reveal: Uniform uptake of the myocardial perfusion tracer Stress Images Reveal: Uniform uptake of the myocardial perfusion tracer TID Score: 1.02 Gated Wall Motion Analysis: Normal left ventricular wall motion and normal calculated ejection fraction of 75%. Normal LV volume with end-diastolic volume calculated at 84 cc. CONCLUSIONS: EKG Portion: Negative Lexiscan EKG portion for ischemia Normal perfusion study no significant evidence of perfusion defect suggestive of ischemia or scar noted. Normal ejection fraction, EF 75%. Low risk for cardio vascular events based on perfusion study, correlate clinically. Electronically signed by: Nicholas Lemon DO 10/04/2020 1:[address] SPINE CERVICAL WITHOUT CONTRAST Result Date: 10/16/2020 CT SPINE CERVICAL WITHOUT CONTRAST performed 10/16/2020 1:05 AM INDICATION: Fall COMPARISON: 06/30/2017 TECHNIQUE: Helically acquired CT images were obtained through the cervical spine without intravenous contrast and reconstructed in the axial, coronal and sagittal planes. FINDINGS: The occipital condyles are intact and articulate normally with C1. Dens is intact. Atlantodental interval is normal.Lateral masses of C1 and two are aligned. Multilevel discogenic and facet hypertrophic degenerativechanges. Vertebral hypertrophy is present multiple levels. There is grade 1 anterolisthesis of C4 on C5. There is no evidence of displaced fracture. There is mild canal stenosis at C6-7 in association with posterior projecting disc ossific complex. There is grade 1 anterolisthesis of C7 on T1. Paracervical soft tissues are unremarkable. Lung apices are clear, IMPRESSION: Multilevel degenerative changes without fracture or subluxation. Dictated by Conrad Pineda M.D.Workstation ID:[id number] CT EXTREMITY LOWER RIGHT WITHOUT CONTRAST Result Date: 10/16/2020 CT EXTREMITY LOWER RIGHT WITHOUT CONTRAST performed on 10/16/2020 12:11 AM Indication:INJURY, Comparison: None Technique: Helically acquired CT images were obtained through the right foot and ankle without intravenous contrast and reconstructed in axial, coronal and sagittal planes. Findings: On the medial aspect of the ankle there is a domed fluid structure measuring 3.3 x 0.7 cm within the dermis. There is diffuse edema throughout the subcutaneous soft tissues with skin thickening over the dorsum of the foot. There is no focal loculated fluid collection. There is no evidence of gas within thesoft tissues. Extensive disorganization and fusion is seen within the mid and hindfoot relating to neurogenic or remote traumatic injury. No evidence of acute osseous abnormality. IMPRESSION: 1. Diffuse edema as well as dorsal skin thickening. No abscess or free air. No acute bony abnormality. 2. 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 DICTATEDBY: Conrad Pineda M.D.Workstation ID:[id number] MAMMOGRAPHY SCREEN BILATERAL WITH CAD Result Date: 09/23/2020 #[id number] - MAMMOGRAPHY SCREEN BILATERAL WITH CAD DIGITAL SCREENING MAMMOGRAM WITH CAD: 09/23/2020 INDICATIONS: The patient is asymptomatic. Comparison is made to exam dated: 07/17/2019 mammogram - [facility]. There are scattered areas of fibroglandular density in both breasts. Current study was also evaluated with a Computer Aided Detection (CAD) system. No significant masses, calcifications, or other findings are seen in either breast. There has been no significant interval change. IMPRESSION:NEGATIVE There is no mammographic evidence of malignancy. A 1 year screening mammogram is recommended. A result summary letter will be sent to the patient. The patient has been entered into a reminder system with the target due date for the next mammogram. Electronically signed by: Eduardo zuniga/troy:09/23/2020 15:35:40 letter sent: Category 1-2 Mammogram BI-RADS: 1 Negative US VENOUS DOPPLER RIGHT LOWER Result Date: 10/16/2020 ULTRASOUND VENOUS DOPPLER RIGHT LOWER EXTREMITY VEINS: 10/16/2020 1:48 AM Indication: Pain and swelling. Examination: Ultrasonographic evaluation of the veins of the right lower extremity was performedto evaluate for the clinically suspected deep venous thrombosis. The left common femoral vein was evaluated as well. Comparison: None. Findings: Color flow imaging demonstrates normal flow. Two-dimensional imaging demonstrates no evidence of filling defect or limited compressibility of the common femoral, superficial femoral, popliteal vein and visualized calf veins. Doppler interrogation demonstrates normal phasic flow with respiration with adequate augmentation and normal response to Valsalva maneuver. IMPRESSION: No evidence of right lower extremity deep or superficial venous thrombosis. Dictated byConrad Pineda M.D. Workstation ID:[id number] CT HEAD (URGENT-ANTICOAGULATED HEAD INJURY PATIENT) Result Date: 10/16/2020 CT HEAD (URGENT-ANTICOAGULATED HEAD INJURY PATIENT), 10/15/2020 11:50 PM. INDICATION: INJURY, . COMPARISON: 05/15/2019. TECHNIQUE: Multiple axial images were obtained through the head without IV contrast. Coronal reconstructions were obtained. Dose reduction: mA and/or kV are were adjusted by automated exposure control software based upon patient's height and weight. FINDINGS: No acute intracranial hemorrhage. No extra-axial fluid collection. No mass effect. No midline shift. No herniation. No evidence of acute large territory transcortical infarct. Stable chronic right ganglial capsular lacunarinfarcts involving the lentiform nucleus and caudate head. Stable-appearing pattern of scattered and confluent hypoattenuating foci involving the periventricular, deep and subcortical white matter ofbilateral cerebral hemispheres and the airam, nonspecific but most likely reflecting chronic small vessel ischemia mildly advanced for age. Ventricles and sulci are age appropriate. Basal cisterns are patent and symmetric. Intracranial atherosclerotic calcifications. Visualized paranasal sinuses areessentially clear. Visualized mastoid air cells are essentially clear. Intraorbital soft tissues appear grossly normal. Hyperostosis frontalis interna. No depressed calvarial fracture. IMPRESSION: 1. NO ACUTE INTRACRANIAL HEMORRHAGE OR MASS EFFECT. NO DEPRESSED CALVARIAL FRACTURE. 2.STABLE-APPEARING MILD PRESUMED CHRONIC SMALL VESSEL ISCHEMIC CHANGES. MRI HAS IMPROVED SENSITIVITY FOR RECENT INFARCT OR SUBTLE LESION. DICTATED BY LOREN SALCIDO M.D.Workstation ID:[id number] STRESS TEST EKG WITH NM IMAGING Result Date: 10/04/2020 Nicholas Lemon, 10/04/2020 11:52 AM [place] CARDIAC LEXISCAN STRESS TEST EKG PORTION Procedure Date: 10/04/2020 Patient Name: Hanna Nelson : 1940 INDICATION FOR STUDY To evaluate the severity and extent of myocardial ischemia PROCEDURE DESCRIPTION: Procedure: Procedure, indications, potential complications,and alternatives were explained to the patient who appeared to understand. Opportunity for questions was provided and informed consent was obtained. Pre-test EKG was reviewed and order given to proceed with pharmacological stress test. The patient received a total of 0.4mg of IV regadenoson as IV bolus. Resting heart rate was 75 bpm and maximum heart rate was 91 bpm after IV regadenoson. Resting blood pressure was 142/74 mmHg and the maximum blood pressure during the exam was 167/73 mm Hg. WithIV regadenoson the patient had symptoms of shortness of breath and headache which improved in recovery. ELECTROCARDIOGRAPHIC DATA: Baseline ekg showed sinus rhythm with nonspecific ST changes. With IV regadenoson, no significant ST segment deviation is noted. No significant arhythmias seen EKG portion of this study is negative for ischemia. CONCLUSIONS: Pharmacological stress test with regadenoson Negative Lexiscan EKG portion for ischemia No arrhythmia Normal blood pressure and heart rate response Corelation with nuclear imaging is needed and report to follow separately Electronically signedby: Nicholas LemonDO, 10/04/2020 11:51 AM XR CHEST 1V POST LINE/TUBE PLACEMENT Result Date: 10/18/2020 Chest History: PICC line placement Comparison: 09/04/2020 Findings: AP view of the chest demonstrates no focal acute infiltrate. The heart is borderline in size. Right PICC line tip near cavoatrial junction. IMPRESSION: Right PICC line tip near the cavoatrial junction. Dictated by Liset Wilson MD, PhD Workstation ID:[id number] PATIENT STATUS ADVANCE DIRECTIVES Durable Power of Manager Functional: Living Will: Code Status Information Code Status Total Support PLANNED INTERVENTIONS Home Care Agency: Name: Phone Number: Assessment of Family & Caregiver Status: DISPOSITION FOLLOW UP APPOINTMENTS: Rehabilitation [place] [address] [address] Lisy Pace MD [address] [facility] [address] Follow up Nader Navarro MD [address] [facility] [address] Follow up in 1 week(s) PENDING TESTS and PERTINENT FINDINGS REQUIRING FOLLOW UP: DISCHARGE ORDERS Discharge Procedure Orders Diabetic (ADA) Medium Calorie Controlled Diet Order Specific Question Answer Comments Order Diabetic Med (1600 - 1900 Calorie) Texture- Regular Physical Therapy - Eval and Treat ([facility]) Referral Priority: Routine Referral Type: PT/OT/ST Referral Reason: Specialty Services Required Requested Specialty: Physical Therapy Number of Visits Requested: 1 Occupational Therapy - Eval And Treat ([facility]) Referral Priority: Routine Referral Type: PT/OT/ST Referral Reason: Specialty Services Required Requested Specialty: Occupational Therapy Number of Visits Requested: 1 DISPOSITION: ECF CONDITION AT DISCHARGE: fair 35 Minutes spent in preparation of discharging this patient including face to face encounter, discussions with the patient and family, medication reconciliation, and transition of care preparation. Electronically signed by: So Nielsen MD, 10/21/2020 11:59 AM documented in this encounter History of Present Illness * Jacquelin Ray MSWNANNETTE - 10/21/2020 1:12 PM EST Social Work Progress Note Regional Business Development Manager reviewed chart. Regional Business Development Manager noted MD has completed discharge orders to [facility]. Regional Business Development Manager spoke with patient and son regarding discharge and both desire discharge to [facility]. Regional Business Development Manager and RN completed AVS. Regional Business Development Manager called and spoke with Herman at [facility] and faxed orders to [facility]. Herman is agreeable to accept patient today. Facility confirmed that Medicare 3 day stay has been met and or insurance precert has been obtained by facility. CMS letter completed on 10/16. Regional Business Development Manager arranged [id number]. Transport agency number is [phone] Regional Business Development Manager update RN and Herman regarding discharge time. Regional Business Development Manager copied chart and placed packets on hospital chart. Social Workerconfirmed needs prescriptions were in the packet for nursing facility . Patient discharged to nursing facility as acute rehab level of care through medicare insurance. Discharge facility: [facility] Report [phone] Electronically signed by: FELICITA Serrano LISW-S, Social Work Phone [phone] Weekday Office Hours: 8A-5P. Holiday/Weekends [phone]. For urgent needs between 5P-7P, please call [phone]. If after 7P, please call [facility] at [phone] or [facility] at [phone] * Jacquelin Ray MSW, LISW-S - 10/21/2020 1:11 PM EST Images from the original note were not included. Hospital Discharge Planning Communication Statement Patient Name: Hanna Nelson Date of : 1940 This patient's medical record has been reviewed and the following information confirmed per documentation: YES/NO: Yes Patient has been fever-free (temperature less than 100.4 F) for 24 hours without the aid of antipyretics like Tylenol, Motrin, etc. Patient has been screened for exposure to Coronavirus per CDC recommendations at point of entry to hospital and was deemed to pass the screening (no concern for exposure). Patient was tested for SARS-CoV-2 (COVID-19), most recent results received on 10/16 and was found to be Negative. Electronically signed by: FELICITA Serrano LISW-S, 10/21/2020\\ * Jacquelin Ray MSW, LISW-S - 10/21/2020 1:10 PM EST 10/21/2020 Hanna Nelson [facility] PATIENT [facility] 4 [id number] Arrangements have been completed for transfer to: Destination - Admitted Since 10/15/2020 Service Provider Selected Services Address Phone Fax Patient [facility]/[address] [address] [place] *Level of Care is*: Acute Rehab Selected Continued Care - Admitted Since 10/15/2020 No services have been selected for the patient. Selected Continued Care - Admitted Since 10/15/2020 No services have been selected for the patient. Selected Continued Care - Admitted Since 10/15/2020 No services have been selected for the patient. medical referral coordinator: Herman Date: 10/21 Ambulance service/relative's name: [facility] Patient care instructions have been documented on the Physician's Transfer Orders and the Nursing Care Plan, which will be sent with the patient to the extended care facility. The rights of snf residents are protected under [place] Law by Section 3721.3. If the patientor family have concerns/problems that arise at the extended care facility that cannot be resolved through the web operations administrator, they may contact the local [facility]. I attest that the patient and/or family have participated in planning for this transfer, verbalizedunderstanding of the follow up care, and are agreeable to the discharge plan. Pt/family agreeable to plan?: Yes Copy of "Discharge to Extended Care Facility Summary" form given to patient/family. no Copy of Extended Care Facility "Patient Transfer Form" given to patient/family. no Copy of "Discharge to Extended Care Facility Summary" and Extended Care Facility "Patient Transfer Form" placed in Extended Care Facility packet if family not present and patient unable to participate in discharge planning. yes FELICITA Serrano LISW-S Electronically signed by: FELICITA Serrano LISW-S, 10/21/2020 1:11 PM * Mercedes Alvarado OTR/Jaz - 10/20/2020 3:53 PM EST ACUTE OCCUPATIONAL THERAPY PROGRESS NOTE Patient Information: Patients Name: Hanna Nelson Date of : 1940 Admitting Diagnosis: Cellulitis [L03.90] OT DISCHARGE INFORMATION: OT Recommended at Discharge: Recommend ongoing skilled therapy in the inpatient setting to address decreased I/ADL performance, functional mobility, activity tolerance, balance, and safety. Recommended Physical Assist and Supervision: Grossly min/mod A for basic ADLs, and Intermittent supervision Availability of assist recommended at discharge: Patient reports that recommended level of assist at discharge is NOT available (family lives a few hours away). Caregiver Readiness for Discharge: No caregiver present for training. Equipment/Additional Services Recommended at Discharge: none- pt owns all needed equipment Other Consultations Recommended at this Time: PM&R Consult for inpatient rehabilitation Barriers: Barriers to Discharge: Medical comorbidities OT Problem List: Impaired ADL performance, Impaired IADL performance, Impaired community re-entry skills and Impaired functional mobility Therapy Session Information: Time In: 1155 Time Out: 1230 Total Time: (35 minutes) Total time based code treatment time: 35 minutes Activity order: No change since evaluation KENNA Frazier informed of treatment session this date. Patient accompanied by: No one Precautions: No changes noted Bed/Chair Alarm: yes Medical: Fall risk Decreased skin integrity - weeping of R LE SUBJECTIVE: Patient and/or Caregiver States: "I think I am just getting a little depressed. It's hard to sit inthis room and feel like I can't do anything for myself." Pain Rating/Location: 6/10, With activity and Patient states pain tolerable for treatment - R LE Action Taken to Address Pain: Education, Diversion and RN notified OBJECTIVE: Medical Update: Continue with plan of care Participation, Interaction and Awareness: WFL Activities of Daily Living: Grooming: Current Status: Set up(to wash face, comb hair seated in chair) Dressing lower body: Current Status: Maximal assist(to don L slipper) Toileting: Current Status: (Pt w/ mcgowan) Bed, chair, wheelchair transfer: Current Status: Moderate assist;Minimal cues;With DME(supine>sit>stand - 3 steps to chair w/ FWW) Hemodynamics: WFL Skilled Intervention/Education: Education provided regarding: role of Occupational Therapy, plan of care, current functional status, importance of participation in ADL tasks as independently as able to maintain/improve functional independence, and importance of participation in therapy treatment sessions. Instructed the patient on fall risk prevention strategies to decrease risk of falls during functional activity. Reinforced safety with transfers/safe use of FWW with transfers/functional mobility. Patient required min verbal cues for safety awareness when completing functional mobility household distances, as well as for hand placement and body positioning when using FWW. Self Care x2 Facilitated patient with above ADL tasks with emphasis on increased independence, activity promotion, strengthening and safety. Provided strategies for activity pacing and energy conservation, as well as incorporating rest breaks into functional activity to decrease fatigue and maintain safety. Reinforced the importance of continued activity to increase independence with ADL routine. Encouraged patient to sit up side of bed or in bedside chair for all meals, as well as ambulate to bathroom (with assistance) for toileting to increase out of bed activity. Therapeutic Activity Facilitated activity in preparation for function to address decreased endurance/activity tolerance through functional sitting/standing and transfer to chair. Provided mod assist for supine>sit at side of bed, primarily for R LE mgmt. Patient sat side of bed for 5 minutes in prep for standing w/ min cues for pursed lip breathing to assist with brief spell of dizziness. Provided mod assist to stand and min A to transfer to chair (~ 3 steps) w/ FWW support. Patient left seated up in chair, all needs within reach. ASSESSMENT: Impact of treatment on impairment and functional limitations: Patient was able to [facility].2 Daily Activity Inpatient Short Form Please check the box that best reflects your best answer to each question. How much help from another person do you currently need (If the patient hasn't done an activity recently, how much help from another person do you think he/she would need if he/she tried?) Total A Lot A Little None 1. Putting on and taking off regular lower body clothing? []1 [x]2 []3 []4 2. Bathing (including washing, rinsing, drying)? []1 [x]2 []3 []4 3. Toileting, which includes using toilet, bedpan or urinal? []1 [x]2 []3 []4 4. Putting on and taking off regular upper body clothing? []1 []2 [x]3 []4 5. Taking care of personal grooming such as brushing teeth? []1 []2 [x]3 []4 6. Eating Meals? []1 []2 []3 [x]4 Score: 16 PLAN: Progress towards goals (to be achieved by time of discharge): STG: Pt to complete grooming;with modified independence Update: Ongoing STG: Pt to complete upper body dressing with;Modified independence Update: Not Addressed STG: Pt to complete lower body dressing with;Supervision Update: Ongoing STG: Pt to complete toileting with;Modified independence Update: Ongoing STG: Pt to complete toilet transfer with;Modified independence Update: Not Addressed STG: Pt to complete bed, chair, wheelchair transfer with;Modified independence Update: Ongoing STG: Pt will incorporate 2 energy conservations techniques with min cues during ADLs/mobility Update: Ongoing LTG: Pt will complete dynamic standing task w/ mod I for 10+ mins to improve balance and activity tolerance for ADLs Update: Ongoing All of the above goals are written to increase functional independence to allow for safe return to prior living situation. Frequency: 2 Sessions remain by 10/26/20, pending length of hospitalization and progress made in future occupational therapy treatment sessions. This information is eligibility services representative of Hanna Nelson's current therapy status. If Hanna Nelson discharges prior to further therapy intervention, this information is to serve as the discharge summary from occupational therapy. Thank you for allowing me to participate in the care of Hanna Nelson. Please contact me with any questions. Signature: DONNY Khan, 10/20/2020, 3:53 PM * Della Gaston, ASSISTANT ACTIVITIES DIRECTOR,SENIOR SOFTWARE DEVELOPER-S - 10/20/2020 2:00 PM EST Social Work Progress Note [facility] continues to be able to accept whenever patient is medically ready. SW will follow. Electronically signed by: FELICITA Moran LISW-S, [id number], 10/20/2020, 2:00 PM Saturday-Saturday Office Hours: 8:30am-5:00pm Holiday/Weekends: [phone] Urgent needs between 5P-7P every day: [phone] * So Nielsen MD - 10/20/2020 10:13 AM EST Images from the original note were not included. Internal Medicine Hospitalist Progress Note Hospitalist: So Nielsen MD [phone] Patient Identifier/Hospitalist Patient Name: Hanna Nelson : 1940 Room / Bed : 412/412-1 Facitily : [facility] Date of Service: 10/20/2020 CSN: [id number] Admit Date: 10/15/2020 11:16 PM Attending Physician: So Nielsen MD Primary Care Physician: Lisy Pace I saw and examined the patient at 10:13 AM on 10/20/2020 Disposition Disposition: Home/ECF in 24-72 hrs,pending clinical improvement Reason for continued hospitalization IVF IV Abx Heparin gtt Protonix gtt Cardizem/Amiodarone gtt Pressors gtt Intubated Pending Clinical recovery Pending Procedures Pending Consult eval Pending MRI/Imaging IV Lasix/Bumex Requiring BIPAP Awaiting Cultures Adjusting medications X IV antibiotic, wound care, PT OT Assessment and Plan Hanna Nelson is a 80 year old female Hospital day# 4 Admitted for: Principal Problem: Cellulitis Narrative : Patient is 80-year-old female, with history of diabetes atrial fibrillation hypertension hyperlipidemia 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 Assessment and plan: Right lower extremity cellulitis with right lower committee heel ulcer unstageable, present on admission: Has suboptimal response to IV ceftriaxone and vancomycin, will change antibiotic to linezolid, MRSA nares is negative, wound culture growing gram-positive cocci and gram-negative organism, final sensitivity awaited, will add cefepime, wound care, consult Dr. Navarro. Atrial fibrillation with RVR: Heart rate improved, reverted to sinus rhythm, continue with atenolol, Eliquis, DC aspirin as patient does not want to take it fearing increased risk of bleeding Diarrhea: Stool for C. difficile negative, diarrhea improved, DC fluids Urinary urgency: Improved, denies any pain or difficulty with micturition, suspect secondary to hyperactive colon From ongoing diarrhea, will continue to monitor, will not get UA as patient has already been on antibiotic NAYELY: Prerenal, suspect ATN, is on gentle IV hydration, kidney function improving Hyponatremia: Mild, improved Hypokalemia: Repleted Hypothyroidism: Levothyroxine Physical deconditioning PT OT eval, will need rehab at discharge DVT Prophylaxis: Lovenox/Heparin & SCD Code Status: Orders Placed This Encounter Total Support Subjective The patient is lying in bed, denies any symptom besides right leg pain, had one episode of loose stool yesterday, has reverted to sinus rhythm ROS : negative except for above Home Medications Current Facility-Administered Medications Medication Dose Route Frequency Provider Last Rate Last Admin insulin glargine (LANTUS) Subcutaneous INJ 12 Units 12 Units Subcutaneous Daily at 2100 So Nielsen MD cefepime (MAXIPIME) 1 g in D5W 50 ml DUPLEX 1 g Intravenous Q12H So Nielsen MD 12.5 mL/hr at 10/20/20 0915 1 g at 10/20/20 0915 oxyCODONE-acetaminophen (PERCOCET) 5-325 mg tablet 1 Tab 1 Tab Oral Q6H PRN So Nielsen MD 1 Tab at 10/20/20 0936 linezolid (ZYVOX) tablet 600 mg 600 mg Oral Q12H So Nielsen MD 600 mg at 10/20/20 0907 metoprolol tartrate (LOPRESSOR) intravenous solution 2.5 mg 2.5 mg IV Push Q6H PRN So Nielsen MD2.5 mg at 10/18/20 1938 saline flush 10 mL IV Push Q12H So Nielsen MD 1 Syringe at 10/20/20 0909 saline flush 10 mL IV Push PRN So Nielsen MD saline flush 20 mL IV Push PRN So Nielsen MD calcium carbonate (TUMS) CHEWABLE tablet 500 mg 1 Tab Oral Q6H PRN So Nielsen MD 500 mg at 10/19/20 1435 diltiazem (CARDIZEM) 125 mg in 0.9% NaCl 125 ml addEASE 2.5-15 mg/hr Intravenous Continuous Erlinda Grace APRN atenoloL (TENORMIN) tablet 25 mg 25 mg Oral Q12H Juan M Quick MD 25 mg at 10/20/20 0907 atropine syringe 0.5 mg 0.5 mg IV Push Q3Min PRN Augusta Weston APRN acetaminophen (TYLENOL) tablet 650 mg 650 mg Oral Q4H PRN Augusta Weston APRN 650 mg at 10/19/20 0554 apixaban (ELIQUIS) tablet 5 mg 5 mg Oral BID Augusta Weston APRN 5 mg at 10/20/20 0907 AtorvaSTATin (LIPITOR) tablet 20 mg 20 mg Oral daily Augusta Weston APRN 20 mg at 10/20/20 0907 fenofibrate nanocrystallized (TRICOR) tablet 145 mg 145 mg Oral daily Augusta Weston APRN 145 mg at 10/20/20 0907 fluticasone propionate (FLONASE) nasal spray 2 Amma 2 Amma Each Nostril daily Augusta Weston APRN 2 Amma at 10/20/20 0905 vitamins multiple therapeutic w/ minerals (THERAGRAN-M) tablet 1 Tab 1 Tab Oral daily Augusta Weston APRN 1 Tab at 10/20/20 0907 gabapentin (NEURONTIN) capsule 300 mg 300 mg Oral TID Augusta Weston APRN 300 mg at 10/20/20 0907 levothyroxine (SYNTHROID) tablet 100 mcg 100 mcg Oral AC Breakfast Augusta Weston APRN 100 mcg at 10/20/20 0548 saline flush 10 mL IV Push Q12H Augusta Weston APRN 1 Syringe at 10/19/20 2136 saline flush 10 mL IV Push PRN Augusta Weston APRN NaCl 0.9% 1,000 mL 1,000 mL Intravenous Continuous PRN Augusta Weston APRN ondansetron (ZOFRAN ODT) RAPID DISSOLVING tablet 4 mg 4 mg Oral Q6H PRN Augusta Weston APRN Or ondansetron (ZOFRAN) injection 4 mg 4 mg IV Push Q6H PRN Augusta Weston APRN docusate sodium-sennosides (LINDA-COLACE/SENOKOT-S) tablet 2 Tab 2 Tab Oral HS Augusta Weston APRN 2 Tab at 10/16/20 2224 dextrose (GLUTOSE) gel (delivers 15 g Carb) 37.5 g 37.5 g Oral PRN Augusta Weston APRN dextrose 50 % in water (D50W) intravenous syringe 5-12.5 g 5-12.5 g IV Push PRN Augusta Weston APRN glucagon injection 1 mg 1 mg Subcutaneous PRN Augusta Weston APRN insulin lispro (HumaLOG) injection 0-5 Units 0-5 Units Subcutaneous TID w/Meals & HS Augusta Weston APRN 2 Units at 10/20/20 0906 Objective Vital Signs: Temp: 98.3 F (36.8 C) (10/20/20 08) Temp Min: 98.1 F (36.7 C) Min taken time: 10/19/20 1132 Max: 99.1 F (37.3 C) Max taken time: 10/20/20 0410 BP: 112/56 (10/20/20829) Pulse: 72 (10/20/20829) Resp: 17 (10/20/20829) SpO2: 98 % (10/20/20829) PHYSICAL EXAMINATION: GENERAL APPEARANCE: NAD, A&O X3 HEENT: PERRL, MMM, Neck: Supple, no LAD, no thyromegaly. CV: RRR, no added sounds heard Pulm: CTA B Abd: +BS, NT, ND. : WNL Extr: No edema. MS: 5/5 strength all groups. Neuro: CN II-XII intact, reflexes symmetric, Skin: No Rashes Diagnostic Data Recent Results (from the past 24 hour(s)) ACCUCHECK GLUCOSE Collection Time: 10/19/20 11:47 AM Result Value Ref Range POINT OF CARE GLUCOSE 293 (H) 70 - 99 BASIC METABOLIC PANEL Collection Time: 10/19/20 2:52 PM Result Value Ref Range SODIUM 129 (L) 135 - 148 MEQ/L POTASSIUM 4.7 3.4 - 5.3 MEQ/L CHLORIDE 101 96 - 110 MEQ/L CARBON DIOXIDE 14 (L) 19 - 32 MEQ/L GLUCOSE 384 (H) 70 - 99 MG/DL BUN 28 3 - 29 MG/DL CREATININE 0.9 0.5 - 1.2 MG/DL BUN/CREAT RATIO 32 (H) 7.0 - 25.0 (CALC) CALCIUM 8.2 (L) 8.5 - 10.5 MG/DL ANION GAP 14 5 - 15 ESTIMATED GFR 60 ML/MIN/1.73M2 ACCUCHECK GLUCOSE Collection Time: 10/19/20 5:16 PM Result Value Ref Range POINT OF CARE GLUCOSE 276 (H) 70 - 99 ACCUCHECK GLUCOSE Collection Time: 10/19/20 9:29 PM Result Value Ref Range POINT OF CARE GLUCOSE 254 (H) 70 - 99 BASIC METABOLIC PANEL Collection Time: 10/20/20 12:56 AM Result Value Ref Range SODIUM 132 (L) 135 - 148 MEQ/L POTASSIUM 3.3 (L) 3.4 - 5.3 MEQ/L CHLORIDE 101 96 - 110 MEQ/L CARBON DIOXIDE 20 19 - 32 MEQ/L GLUCOSE 237 (H) 70 - 99 MG/DL BUN 24 3 - 29 MG/DL CREATININE 0.8 0.5 - 1.2 MG/DL BUN/CREAT RATIO 32 (H) 7.0 - 25.0 (CALC) CALCIUM 8.3 (L) 8.5 - 10.5 MG/DL ANION GAP 11 5 - 15 ESTIMATED GFR 69 ML/MIN/1.73M2 BASIC METABOLIC PANEL Collection Time: 10/20/20 8:00 AM Result Value Ref Range SODIUM 135 135 - 148 MEQ/L POTASSIUM 3.9 3.4 - 5.3 MEQ/L CHLORIDE 105 96 - 110 MEQ/L CARBON DIOXIDE 22 19 - 32 MEQ/L GLUCOSE 206 (H) 70 - 99 MG/DL BUN 23 3 - 29 MG/DL CREATININE 0.7 0.5 - 1.2 MG/DL BUN/CREAT RATIO 32 (H) 7.0 - 25.0 (CALC) CALCIUM 8.2 (L) 8.5 - 10.5 MG/DL ANION GAP 8 5 - 15 ESTIMATED GFR 82 ML/MIN/1.73M2 ACCUCHECK GLUCOSE Collection Time: 10/20/20 8:26 AM Result Value Ref Range POINT OF CARE GLUCOSE 199 (H) 70 - 99 Imaging XR LEG TIBIA / FIBULA RIGHT 2 VIEWS Result Date: 10/16/2020 EXAMINATION: XR LEG TIBIA / FIBULA RIGHT 2 VIEWS. 10/16/2020 12:12 AM CLINICAL: Right leg pain. Fall.Screening wounds. COMPARISON: None. TECHNIQUE: Two radiographs of the right tibia and fibula were obtained. FINDINGS: No acute fracture is present. 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 There is subcutaneous edema of the calf with more focal area of soft tissue edema at the medial distal calf. No soft tissue gas is present. 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 No periostitis or bone erosion is visualized. IMPRESSION: No fracture of the right tibia and fibula. There is subcutaneous edema diffusely in thecalf with more focal soft tissue edema at the distal medial calf. DICTATED BY: SAIDA QUINTERO MD Workstation ID:[id number] DEXA BONE DENSITY SCAN AXIAL Result Date: 09/23/2020 09/23/2020 1:16 PM DXA BONE MINERAL DENSITY SCAN: INDICATION: Osteoporosis screening MACHINE: Zighra COMMENT: The bone mineral density (BMD) from L1 to L4 is 1.551 g/cm2 with T-score of 3.1, inthe normal range. The measurement is exaggerated by degenerative changes. The BMD in the left totalhip is 0.872 g/cm2 with T-score of -1.1, in the osteopenia range. The BMD in the left femoral neck is 0.833 g/cm2 with T-score of -1.5, in the osteopenia range. The BMD in the right radius is 0.761 gm/cm2 with a T-score of -1.3, in the osteopenia range. The FRAX 10-year probability for a major osteoporotic fracture is 31.7% and for a hip fracture is 17.6%. IMPRESSION: Osteopenia at some areas as described above. DICTATED BY: SHIRA DOS SANTOS MD Workstation ID:[id number] OR MYOCARDIAL PERFUSION IMAGING Result Date: 10/04/2020 CARDIAC STRESS TEST Procedure Date: 10/04/2020 Patient Name: Hanna Nelson :1940 INDICATION FOR STUDY To evaluate the extent and severity of coronary artery disease PROCEDURE DESCRIPTION: Procedure: ELECTROCARDIOGRAPHIC DATA: Baseline ekg showed sinus rhythm with nonspecific ST changes. With IV regadenoson, no significant ST segment deviation is noted. No significant arhythmias seen EKG portion of this study is negative for ischemia. CONCLUSIONS: Pharmacological stress test with regadenoson Negative Lexiscan EKG portion for ischemia No arrhythmia Normal blood pressure and heart rate response NUCLEAR IMAGES: Patient received a dose of 11.1 mCi of Technetium 99m Myoview at rest and received a dose of 38.8 mCi of the same tracer at stress. Gating was applied to these images for calculation of ejection fraction and assessment of wall motion. Attenuation correction was applied to these images as well. Rest Images Reveal: Uniform uptake of the myocardial perfusion tracer Stress Images Reveal: Uniform uptake of the myocardial perfusion tracer TID Score: 1.02 Gated Wall Motion Analysis: Normal left ventricular wall motion and normal calculated ejection fraction of 75%. Normal LV volume with end-diastolic volume calculated at 84 cc. CONCLUSIONS: EKG Portion: Negative Lexiscan EKG portion for ischemia Normal perfusion study no significant evidence of perfusion defect suggestive of ischemia or scar noted. Normal ejection fraction, EF 75%. Low risk for cardio vascular events based on perfusion study, correlate clinically. Electronically signed by: Nicholas Leomn DO, 10/04/2020 1:[address] SPINE CERVICAL WITHOUT CONTRAST Result Date: 10/16/2020 CT SPINE CERVICAL WITHOUT CONTRAST performed 10/16/2020 1:05 AM INDICATION: Fall COMPARISON: 06/30/2017 TECHNIQUE: Helically acquired CT images were obtained through the cervical spine without intravenous contrast and reconstructed in the axial, coronal and sagittal planes. FINDINGS: The occipital condyles are intact and articulate normally with C1. Dens is intact. Atlantodental interval is normal.Lateral masses of C1 and two are aligned. Multilevel discogenic and facet hypertrophic degenerativechanges. Vertebral hypertrophy is present multiple levels. There is grade 1 anterolisthesis of C4 on C5. There is no evidence of displaced fracture. There is mild canal stenosis at C6-7 in association with posterior projecting disc ossific complex. There is grade 1 anterolisthesis of C7 on T1. Paracervical soft tissues are unremarkable. Lung apices are clear, IMPRESSION: Multilevel degenerative changes without fracture or subluxation. Dictated by Conrad Pineda M.D.Workstation ID:[id number] CT EXTREMITY LOWER RIGHT WITHOUT CONTRAST Result Date: 10/16/2020 CT EXTREMITY LOWER RIGHT WITHOUT CONTRAST performed on 10/16/2020 12:11 AM Indication:INJURY, Comparison: None Technique: Helically acquired CT images were obtained through the right foot and ankle without intravenous contrast and reconstructed in axial, coronal and sagittal planes. Findings: On the medial aspect of the ankle there is a domed fluid structure measuring 3.3 x 0.7 cm within the dermis. There is diffuse edema throughout the subcutaneous soft tissues with skin thickening over the dorsum of the foot. There is no focal loculated fluid collection. There is no evidence of gas within thesoft tissues. Extensive disorganization and fusion is seen within the mid and hindfoot relating to neurogenic or remote traumatic injury. No evidence of acute osseous abnormality. IMPRESSION: 1. Diffuse edema as well as dorsal skin thickening. No abscess or free air. No acute bony abnormality. 2. 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 DICTATEDBY: Conrad Pineda M.D.Workstation ID:[id number] MAMMOGRAPHY SCREEN BILATERAL WITH CAD Result Date: 09/23/2020 #[id number] - MAMMOGRAPHY SCREEN BILATERAL WITH CAD DIGITAL SCREENING MAMMOGRAM WITH CAD: 09/23/2020 INDICATIONS: The patient is asymptomatic. Comparison is made to exam dated: 07/17/2019 mammogram - [facility]. There are scattered areas of fibroglandular density in both breasts. Current study was also evaluated with a Computer Aided Detection (CAD) system. No significant masses, calcifications, or other findings are seen in either breast. There has been no significant interval change. IMPRESSION:NEGATIVE There is no mammographic evidence of malignancy. A 1 year screening mammogram is recommended. A result summary letter will be sent to the patient. The patient has been entered into a reminder system with the target due date for the next mammogram. Electronically signed by: Eduardo zuniga/troy:09/23/2020 15:35:40 letter sent: Category 1-2 Mammogram BI-RADS: 1 Negative US VENOUS DOPPLER RIGHT LOWER Result Date: 10/16/2020 ULTRASOUND VENOUS DOPPLER RIGHT LOWER EXTREMITY VEINS: 10/16/2020 1:48 AM Indication: Pain and swelling. Examination: Ultrasonographic evaluation of the veins of the right lower extremity was performedto evaluate for the clinically suspected deep venous thrombosis. The left common femoral vein was evaluated as well. Comparison: None. Findings: Color flow imaging demonstrates normal flow. Two-dimensional imaging demonstrates no evidence of filling defect or limited compressibility of the common femoral, superficial femoral, popliteal vein and visualized calf veins. Doppler interrogation demonstrates normal phasic flow with respiration with adequate augmentation and normal response to Valsalva maneuver. IMPRESSION: No evidence of right lower extremity deep or superficial venous thrombosis. Dictated byConrad Pineda M.D. Workstation ID:[id number] CT HEAD (URGENT-ANTICOAGULATED HEAD INJURY PATIENT) Result Date: 10/16/2020 CT HEAD (URGENT-ANTICOAGULATED HEAD INJURY PATIENT), 10/15/2020 11:50 PM. INDICATION: INJURY, . COMPARISON: 05/15/2019. TECHNIQUE: Multiple axial images were obtained through the head without IV contrast. Coronal reconstructions were obtained. Dose reduction: mA and/or kV are were adjusted by automated exposure control software based upon patient's height and weight. FINDINGS: No acute intracranial hemorrhage. No extra-axial fluid collection. No mass effect. No midline shift. No herniation. No evidence of acute large territory transcortical infarct. Stable chronic right ganglial capsular lacunarinfarcts involving the lentiform nucleus and caudate head. Stable-appearing pattern of scattered and confluent hypoattenuating foci involving the periventricular, deep and subcortical white matter ofbilateral cerebral hemispheres and the airam, nonspecific but most likely reflecting chronic small vessel ischemia mildly advanced for age. Ventricles and sulci are age appropriate. Basal cisterns are patent and symmetric. Intracranial atherosclerotic calcifications. Visualized paranasal sinuses areessentially clear. Visualized mastoid air cells are essentially clear. Intraorbital soft tissues appear grossly normal. Hyperostosis frontalis interna. No depressed calvarial fracture. IMPRESSION: 1. NO ACUTE INTRACRANIAL HEMORRHAGE OR MASS EFFECT. NO DEPRESSED CALVARIAL FRACTURE. 2.STABLE-APPEARING MILD PRESUMED CHRONIC SMALL VESSEL ISCHEMIC CHANGES. MRI HAS IMPROVED SENSITIVITY FOR RECENT INFARCT OR SUBTLE LESION. DICTATED BY LOREN SALCIDO M.D.Workstation ID:[id number] STRESS TEST EKG WITH NM IMAGING Result Date: 10/04/2020 Nicholas Lemon DO 10/04/2020 11:52 AM [facility] CARDIAC LEXISCAN STRESS TEST EKG PORTION Procedure Date: 10/04/2020 Patient Name: Hanna Nelson : 1940 INDICATION FOR STUDY To evaluate the severity and extent of myocardial ischemia PROCEDURE DESCRIPTION: Procedure: Procedure, indications, potential complications,and alternatives were explained to the patient who appeared to understand. Opportunity for questions was provided and informed consent was obtained. Pre-test EKG was reviewed and order given to proceed with pharmacological stress test. The patient received a total of 0.4mg of IV regadenoson as IV bolus. Resting heart rate was 75 bpm and maximum heart rate was 91 bpm after IV regadenoson. Resting blood pressure was 142/74 mmHg and the maximum blood pressure during the exam was 167/73 mm Hg. WithIV regadenoson the patient had symptoms of shortness of breath and headache which improved in recovery. ELECTROCARDIOGRAPHIC DATA: Baseline ekg showed sinus rhythm with nonspecific ST changes. With IV regadenoson, no significant ST segment deviation is noted. No significant arhythmias seen EKG portion of this study is negative for ischemia. CONCLUSIONS: Pharmacological stress test with regadenoson Negative Lexiscan EKG portion for ischemia No arrhythmia Normal blood pressure and heart rate response Corelation with nuclear imaging is needed and report to follow separately Electronically signedby: Nicholas Lemon DO, 10/04/2020 11:51 AM XR CHEST 1V POST LINE/TUBE PLACEMENT Result Date: 10/18/2020 Chest History: PICC line placement Comparison: 09/04/2020 Findings: AP view of the chest demonstrates no focal acute infiltrate. The heart is borderline in size. Right PICC line tip near cavoatrial junction. IMPRESSION: Right PICC line tip near the cavoatrial junction. Dictated by Liset Wilson MD, PhD Workstation ID:[id number] Signature Electronically signed by: So Nielsen MD, 10/20/2020 10:13 AM * Lindsey Lamar, OTR/L - 10/19/2020 1:50 PM EST ACUTE OCCUPATIONAL THERAPY PROGRESS NOTE Patient Information: Patients Name: [facility] 1940 [id number] Admitting Diagnosis: Cellulitis [L03.90] OT DISCHARGE INFORMATION: OT Recommended at Discharge: Recommend ongoing skilled therapy in the inpatient setting to address decreased I/ADL performance, functional mobility, activity tolerance, balance, and safety. Recommended Physical Assist and Supervision: Grossly Supervision- Max A for basic ADLs, and Intermittent supervision Availability of Assist Recommended at Discharge: See initial evaluation Caregiver Readiness for Discharge: No caregiver present for training. Equipment/Additional Services Recommended at Discharge: Will defer to next level of care Barriers: Barriers to Discharge: Medical comorbidities and Pain OT Problem List: Impaired ADL performance, Impaired IADL performance, Impaired community re-entry skills and Impaired functional mobility Therapy Session Information: Time In: 1026 Time Out: 1119 Total Time: (53) Total time based code treatment time: 53 minutes Activity order: No change since evaluation KENNA Valdes informed of treatment session this date. Patient accompanied by: Arelis OT/S Precautions: Bed / Chair alarm activated prior to departure: Yes, bed alarm Medical: Fall risk SUBJECTIVE: Patient and/or Caregiver States: "I think it's a waste of money for you guys to work with me" Pain Rating/Location: 3-4 Action Taken to Address Pain: Repositioned and Education OBJECTIVE: Medical Update: No acute changes and Continue with plan of care Participation, Interaction and Awareness: Level of consciousness:Alert Orientation:Alert and oriented X 4 Command following:WFL for ADL Behavior:Cooperative Safety awareness:WFL for ADL Ability to attend:WFL for ADL Memory:WFL for ADL Communication & Social Skills: Pt able to verbalize wants and needs to appropriate staff Hemodynamics: WFL Activities of Daily Living (ADLs): ACTIVITY CURRENT ASSIST LEVEL Skilled ADL Treatment Provided During Session Eating/Feeding Grooming Current Status: Supervision;Set up(EOB) Pt engaged in washing face, combing hair, and brushing teeth sitting EOB w/ supervision. Due to pain, pt could not progress to bathroom for ADL routine Bathing Upper Body Dressing Lower Body Dressing Current Status: Maximal assist Max A to doff slippers Mod A to don brief. Assisted w/ threading legs through brief and help adjust brief posteriorly. Toileting Current Status: Moderate assist CGA sit > stand from [facility] w/ FWW Required hands to hold onto walker for balance, Max A to wipe Toilet Transfer Current Status: Supervision CGA sit > stand from [facility] w/ FWW Bed, Chair, Wheelchair Transfer Current Status: Minimal assist CGA sit > stand from [facility]. Cues for hand placement to increase safety w/ FWW CGA ambulation BSC > bed w/ FWW CGA sit <> stand from bed Min A (legs) sit > supine. Verbal cues for repositioning to align lower and upper body. Additional Skilled Treatment Provided: Education provided regarding the importance of participation in ADL/mobility tasks as independentlyas able to maintain/improve functional independence. Self-Carex2 Facilitated participation in above-mentioned ADLs through provision of instruction in adaptive techniques/instructions/cueing as needed to maximize independence with emphasis on promoting increased activity tolerance, functional independence, functional strength, and safety. Engaged pt in performance of basic ADL tasks to promote increased participation in environment and familiar activities withgoal of returning to previous functional level. Educated the pt on the importance of initiating all self care tasks before asking for assistance, to increase strength and indep with ADLs Facilitated safe participation in functional ADL transfers and bed mobility to improve activity tolerance and strength in preparation for ADL performance. Educated on importance of SOB activities to promote functional independence with ADLs. Educated patient on energy conservation strategies of pacing activities, as well as incorporating rest breaks into functional activity to decrease fatigue and maintain safety. Therapeutic Activityx2 Facilitated activity in preparation for function to address decreased activity tolerance through functional mobility SOB Engaged patient in performance of bed mobility and ADL transfers to increase strength and activity tolerance in preparation for ADLs. Instructed patient on proper adaptive equipment/adaptive techniques use for increased independence with I/ADL tasks Reinforced safety with transfers/safe use of FWW with transfers/functional mobility. Patient required min verbal cues for safety awareness when completing functional mobility household distances, as well as for hand placement and body positioning when using FWW. Patient left supine in bed with call light in reach and all current needs met ASSESSMENT: Impact of treatment on impairment and functional limitations: Progress limited during treatment secondary to: Pain PLAN: Progress towards goals (to be achieved by time of discharge): STG: Pt to complete grooming;with modified independence Update: Ongoing STG: Pt to complete upper body dressing with;Modified independence Update: Ongoing STG: Pt to complete lower body dressing with;Supervision Update: Ongoing STG: Pt to complete toileting with;Modified independence Update: Ongoing STG: Pt to complete toilet transfer with;Modified independence Update: Ongoing STG: Pt to complete bed, chair, wheelchair transfer with;Modified independence Update: Ongoing STG: Pt will incorporate 2 energy conservations techniques with min cues during ADLs/mobility Update: Ongoing LTG: Pt will complete dynamic standing task w/ mod I for 10+ mins to improve balance and activity tolerance for ADLs Update: Ongoing All of the above goals are written to increase functional independence to allow for safe return to prior living situation. Frequency: 3 Sessions remain by 10/26/20, pending length of hospitalization and progress made in future occupational therapy treatment sessions. This information is eligibility services representative of Hanna Nelson's current therapy status. If Hanna Nelson discharges prior to further therapy intervention, this information is to serve as the discharge summary from occupational therapy. Thank you for allowing me to participate in the care of Hanna Nelson. Please contact me with any questions. Signature: Arelis Sebastian OT/S, 10/19/2020, 1:51 PM Therapist/social and human services assistant screening of patient indicates appropriate complexity for student manager of international involvement. Patient indicates to therapist/social and human services assistant willingness to allow student manager of international to be involved in care of this patient. Plan of care reviewed with student prior to and after patient encounter. Signature: MARIN Escobar/Jaz, UNDERWRITING SUPPORT MANAGER, 10/19/2020, 4:29 PM * So Nielsen MD - 10/19/2020 10:40 AM EST Images from the original note were not included. Internal Medicine Hospitalist Progress Note Hospitalist: So Nielsen MD [phone] Patient Identifier/Hospitalist Patient Name: Hanna Nelson : 1940 Room / Bed : 412/412-1 Facitily : [facility] Date of Service: 10/19/2020 CSN: [id number] Admit Date: 10/15/2020 11:16 PM Attending Physician: So Nielsen MD Primary Care Physician: Lisy Pace I saw and examined the patient at 10:40 AM on 10/19/2020 Disposition Disposition: Home/ECF in 24-72 hrs,pending clinical improvement Reason for continued hospitalization IVF IV Abx Heparin gtt Protonix gtt Cardizem/Amiodarone gtt Pressors gtt Intubated Pending Clinical recovery Pending Procedures Pending Consult eval Pending MRI/Imaging IV Lasix/Bumex Requiring BIPAP Awaiting Cultures Adjusting medications X IV antibiotic, wound care, PT OT Assessment and Plan Hanna Nelson is a 80 year old female Hospital day# 3 Admitted for: Principal Problem: Cellulitis Narrative : Patient is 80-year-old female, with history of diabetes atrial fibrillation hypertension hyperlipidemia 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 Assessment and plan: Right lower extremity cellulitis with right lower committee heel ulcer unstageable, present on admission: Has suboptimal response to IV ceftriaxone and vancomycin, will change antibiotic to linezolid, MRSA nares is negative, wound culture growing gram-positive cocci and gram-negative organism, final sensitivity awaited, will add cefepime, wound care, consult Dr. Navarro. Atrial fibrillation with RVR: Heart rate improved, continue with atenolol, Eliquis, DC aspirin as patient does not want to take it fearing increased risk of bleeding Diarrhea: Stool for C. difficile negative, diarrhea improved, DC fluids Urinary urgency: Denies any pain or difficulty with micturition, suspect secondary to hyperactive colon From ongoing diarrhea, will continue to monitor, will not get UA as patient has already been onantibiotic NAYELY: Prerenal, suspect ATN, is on gentle IV hydration, kidney function improving Hyponatremia: Mild, improved Hypokalemia: Repleted Hypothyroidism: Levothyroxine Physical deconditioning PT OT eval, will need rehab at discharge DVT Prophylaxis: Lovenox/Heparin & SCD Code Status: Orders Placed This Encounter Total Support Subjective The patient is lying in bed, that is improved, complains of right leg pain and swelling, denies anyother symptoms ROS : negative except for above Home Medications Current Facility-Administered Medications Medication Dose Route Frequency Provider Last Rate Last Admin linezolid (ZYVOX) 600mg in D5W 300mL IVPB 600 mg Intravenous Q12H So Nielsen MD 300 mL/hr at 10/19/20 0856 600 mg at 10/19/20 0856 metoprolol tartrate (LOPRESSOR) intravenous solution 2.5 mg 2.5 mg IV Push Q6H PRN So Nielsen MD2.5 mg at 10/18/20 1938 saline flush 10 mL IV Push Q12H So Nielsen MD 1 Syringe at 10/19/20 0858 saline flush 10 mL IV Push PRN So Nielsen MD saline flush 20 mL IV Push PRN So Nielsen MD calcium carbonate (TUMS) CHEWABLE tablet 500 mg 1 Tab Oral Q6H PRN So Nielsen MD 500 mg at 10/18/20 1804 diltiazem (CARDIZEM) 125 mg in 0.9% NaCl 125 ml addEASE 2.5-15 mg/hr Intravenous Continuous Erlinda Grace APRN NaCl 0.9% 1,000 mL 1,000 mL Intravenous Continuous Juan M Quick MD 50 mL/hr at 10/19/20 0420 Rate Verify at 10/19/20 0420 atenoloL (TENORMIN) tablet 25 mg 25 mg Oral Q12H Juan M Quick MD 25 mg at 10/19/20 0858 insulin glargine (LANTUS) Subcutaneous INJ 5 Units 5 Units Subcutaneous Daily at 2100 Juan M Quick MD 5 Units at 10/18/20 2150 atropine syringe 0.5 mg 0.5 mg IV Push Q3Min PRN Augusta Weston APRN acetaminophen (TYLENOL) tablet 650 mg 650 mg Oral Q4H PRN Augusta Weston APRN 650 mg at 10/19/20 0554 apixaban (ELIQUIS) tablet 5 mg 5 mg Oral BID Augusta Weston APRN 5 mg at 10/19/20 0858 AtorvaSTATin (LIPITOR) tablet 20 mg 20 mg Oral daily Augusta Weston APRN 20 mg at 10/19/20 0857 fenofibrate nanocrystallized (TRICOR) tablet 145 mg 145 mg Oral daily Augusta Weston APRN 145 mg at 10/19/20 0857 fluticasone propionate (FLONASE) nasal spray 2 Amma 2 Amma Each Nostril daily Augusta Weston APRN 2 Amma at 10/19/20 0858 vitamins multiple therapeutic w/ minerals (THERAGRAN-M) tablet 1 Tab 1 Tab Oral daily Augusta Weston APRN 1 Tab at 10/19/20 0856 gabapentin (NEURONTIN) capsule 300 mg 300 mg Oral TID Augusta Weston APRN 300 mg at 10/19/20 0856 levothyroxine (SYNTHROID) tablet 100 mcg 100 mcg Oral AC Breakfast Augusta Weston APRN 100 mcg at 10/19/20 0554 saline flush 10 mL IV Push Q12H Augusta Weston APRN 1 Syringe at 10/19/20 0858 saline flush 10 mL IV Push PRN Augusta Weston APRN NaCl 0.9% 1,000 mL 1,000 mL Intravenous Continuous PRN Augusta Weston APRN ondansetron (ZOFRAN ODT) RAPID DISSOLVING tablet 4 mg 4 mg Oral Q6H PRN Augusta Weston APRN Or ondansetron (ZOFRAN) injection 4 mg 4 mg IV Push Q6H PRN Augusta Weston APRN docusate sodium-sennosides (LINDA-COLACE/SENOKOT-S) tablet 2 Tab 2 Tab Oral HS Augusta Weston APRN 2 Tab at 10/16/20 2224 dextrose (GLUTOSE) gel (delivers 15 g Carb) 37.5 g 37.5 g Oral PRN Augusta Weston APRN dextrose 50 % in water (D50W) intravenous syringe 5-12.5 g 5-12.5 g IV Push PRN Augusta Weston APRN glucagon injection 1 mg 1 mg Subcutaneous PRN Augusta Weston APRN insulin lispro (HumaLOG) injection 0-5 Units 0-5 Units Subcutaneous TID w/Meals & HS Augutsa Weston APRN 2 Units at 10/19/20 0905 Objective Vital Signs: Temp: 98.3 F (36.8 C) (10/19/20 0849) Temp Min: 96.5 F (35.8 C) Min taken time: 10/18/20 1141 Max: 100.3 F (37.9 C) Max taken time: 10/18/20 1551 BP: 111/55 (10/19/20 0849) Pulse: 76 (10/19/20942) Resp: 17 (10/19/20942) SpO2: 97 % (10/19/20942) PHYSICAL EXAMINATION: GENERAL APPEARANCE: NAD, A&O X3 HEENT: PERRL, MMM, Neck: Supple, no LAD, no thyromegaly. CV: RRR, no added sounds heard Pulm: CTA B Abd: +BS, NT, ND. : WNL Extr: Right lower committee cellulitis along with tenderness noted, also has open areas of his chest to also along with right heel wound MS: 5/5 strength all groups. Neuro: CN II-XII intact, reflexes symmetric, Skin: No Rashes Diagnostic Data Recent Results (from the past 24 hour(s)) ACCUCHECK GLUCOSE Collection Time: 10/18/20 12:09 PM Result Value Ref Range POINT OF CARE GLUCOSE 199 (H) 70 - 99 CLOSTRIDIUM DIFFICILE SCREEN Collection Time: 10/18/20 12:44 PM Specimen: Bowel.; Feces. Result Value Ref Range C. DIFFICILE SCREEN NEGATIVE Reference range: NEGATIVE CULTURE, MISCELLANEOUS WITH GRAM STAIN Collection Time: 10/18/20 1:39 PM Result Value Ref Range SPECIMEN DESCRIPTION FOOT SPECIAL REQUESTS NONE GRAM STAIN MODERATE GRAM STAIN POLYMORPHONUCLEAR CELLS (PMN'S) GRAM STAIN RARE GRAM STAIN GRAM POSITIVE COCCI GRAM STAIN RARE GRAM STAIN GRAM NEGATIVE BACILLI CULTURE RESULTS TO FOLLOW BASIC METABOLIC PANEL Collection Time: 10/18/20 2:40 PM Result Value Ref Range SODIUM 138 135 - 148 MEQ/L POTASSIUM 5.2 3.4 - 5.3 MEQ/L CHLORIDE 106 96 - 110 MEQ/L CARBON DIOXIDE 16 (L) 19 - 32 MEQ/L GLUCOSE 295 (H) 70 - 99 MG/DL BUN 30 (H) 3 - 29 MG/DL CREATININE 1.0 0.5 - 1.2 MG/DL BUN/CREAT RATIO 30 (H) 7.0 - 25.0 (CALC) CALCIUM 8.9 8.5 - 10.5 MG/DL ANION GAP 16 (H) 5 - 15 ESTIMATED GFR 53 ML/MIN/1.73M2 URINALYSIS REFLEX TO CULTURE Collection Time: 10/18/20 3:01 PM Specimen: Clean Catch Midstream.; URINE Result Value Ref Range COLOR, URINE YELLOW APPEARANCE, URINE CLEAR PH, URINE 6.0 4.5 - 8.0 SPECIFIC GRAVITY, URINE 1.010 1.005 - 1.030 PROTEIN, URINE NEGATIVE NEG MG/DL GLUCOSE, URINE >=1000 (A) NEG MG/DL KETONE, URINE NEGATIVE NEG MG/DL BILIRUBIN, URINE NEGATIVE NEG BLOOD, URINE TRACE (A) NEG UROBILINOGEN, URINE NORMAL <2 NITRITES, URINE NEGATIVE NEG LEUKOCYTES, URINE NEGATIVE NEG WBC, URINE 0-5 U05 /HPF RBC, URINE 0-2 U02 /HPF CAST, URINE NONE SEEN /LPF EPITHELIAL, URINE 0-5 /LPF MUCUS, URINE TRACE BACTERIA, URINE TRACE (A) NS CRYSTALS, URINE NONE SEEN COMMENTS TEST PERFORMED AT [facility] ACCUCHECK GLUCOSE Collection Time: 10/18/20 6:13 PM Result Value Ref Range POINT OF CARE GLUCOSE 297 (H) 70 - 99 ACCUCHECK GLUCOSE Collection Time: 10/18/20 9:16 PM Result Value Ref Range POINT OF CARE GLUCOSE 309 (H) 70 - 99 BASIC METABOLIC PANEL Collection Time: 10/19/20 12:03 AM Result Value Ref Range SODIUM 134 (L) 135 - 148 MEQ/L POTASSIUM 3.1 (L) 3.4 - 5.3 MEQ/L CHLORIDE 105 96 - 110 MEQ/L CARBON DIOXIDE 20 19 - 32 MEQ/L GLUCOSE 298 (H) 70 - 99 MG/DL BUN 27 3 - 29 MG/DL CREATININE 0.9 0.5 - 1.2 MG/DL BUN/CREAT RATIO 29 (H) 7.0 - 25.0 (CALC) CALCIUM 8.4 (L) 8.5 - 10.5 MG/DL ANION GAP 9 5 - 15 ESTIMATED GFR 60 ML/MIN/1.73M2 ACCUCHECK GLUCOSE Collection Time: 10/19/20 8:51 AM Result Value Ref Range POINT OF CARE GLUCOSE 216 (H) 70 - 99 BASIC METABOLIC PANEL Collection Time: 10/19/20 9:25 AM Result Value Ref Range SODIUM 134 (L) 135 - 148 MEQ/L POTASSIUM 3.5 3.4 - 5.3 MEQ/L CHLORIDE 103 96 - 110 MEQ/L CARBON DIOXIDE 19 19 - 32 MEQ/L GLUCOSE 255 (H) 70 - 99 MG/DL BUN 23 3 - 29 MG/DL CREATININE 0.8 0.5 - 1.2 MG/DL BUN/CREAT RATIO 28 (H) 7.0 - 25.0 (CALC) CALCIUM 8.3 (L) 8.5 - 10.5 MG/DL ANION GAP 12 5 - 15 ESTIMATED GFR 69 ML/MIN/1.73M2 Imaging XR LEG TIBIA / FIBULA RIGHT 2 VIEWS Result Date: 10/16/2020 EXAMINATION: XR LEG TIBIA / FIBULA RIGHT 2 VIEWS. 10/16/2020 12:12 AM CLINICAL: Right leg pain. Fall.Screening wounds. COMPARISON: None. TECHNIQUE: Two radiographs of the right tibia and fibula were obtained. FINDINGS: No acute fracture is present. 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 There is subcutaneous edema of the calf with more focal area of soft tissue edema at the medial distal calf. No soft tissue gas is present. 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 No periostitis or bone erosion is visualized. IMPRESSION: No fracture of the right tibia and fibula. There is subcutaneous edema diffusely in thecalf with more focal soft tissue edema at the distal medial calf. DICTATED BY: SAIDA QUINTERO MD Workstation ID:[id number] DEXA BONE DENSITY SCAN AXIAL Result Date: 09/23/2020 09/23/2020 1:16 PM DXA BONE MINERAL DENSITY SCAN: INDICATION: Osteoporosis screening MACHINE: Zighra COMMENT: The bone mineral density (BMD) from L1 to L4 is 1.551 g/cm2 with T-score of 3.1, inthe normal range. The measurement is exaggerated by degenerative changes. The BMD in the left totalhip is 0.872 g/cm2 with T-score of -1.1, in the osteopenia range. The BMD in the left femoral neck is 0.833 g/cm2 with T-score of -1.5, in the osteopenia range. The BMD in the right radius is 0.761 gm/cm2 with a T-score of -1.3, in the osteopenia range. The FRAX 10-year probability for a major osteoporotic fracture is 31.7% and for a hip fracture is 17.6%. IMPRESSION: Osteopenia at some areas as described above. DICTATED BY: SHIRA DOS SANTOS MD Workstation ID:[id number] NM MYOCARDIAL PERFUSION IMAGING Result Date: 10/04/2020 CARDIAC STRESS TEST Procedure Date: 10/04/2020 Patient Name: Hanna Nelson :1940 INDICATION FOR STUDY To evaluate the extent and severity of coronary artery disease PROCEDURE DESCRIPTION: Procedure: ELECTROCARDIOGRAPHIC DATA: Baseline ekg showed sinus rhythm with nonspecific ST changes. With IV regadenoson, no significant ST segment deviation is noted. No significant arhythmias seen EKG portion of this study is negative for ischemia. CONCLUSIONS: Pharmacological stress test with regadenoson Negative Lexiscan EKG portion for ischemia No arrhythmia Normal blood pressure and heart rate response NUCLEAR IMAGES: Patient received a dose of 11.1 mCi of Technetium 99m Myoview at rest and received a dose of 38.8 mCi of the same tracer at stress. Gating was applied to these images for calculation of ejection fraction and assessment of wall motion. Attenuation correction was applied to these images as well. Rest Images Reveal: Uniform uptake of the myocardial perfusion tracer Stress Images Reveal: Uniform uptake of the myocardial perfusion tracer TID Score: 1.02 Gated Wall Motion Analysis: Normal left ventricular wall motion and normal calculated ejection fraction of 75%. Normal LV volume with end-diastolic volume calculated at 84 cc. CONCLUSIONS: EKG Portion: Negative Lexiscan EKG portion for ischemia Normal perfusion study no significant evidence of perfusion defect suggestive of ischemia or scar noted. Normal ejection fraction, EF 75%. Low risk for cardio vascular events based on perfusion study, correlate clinically. Electronically signed by: Nicholas Lemon DO, 10/04/2020 1:[address] SPINE CERVICAL WITHOUT CONTRAST Result Date: 10/16/2020 CT SPINE CERVICAL WITHOUT CONTRAST performed 10/16/2020 1:05 AM INDICATION: Fall COMPARISON: 06/30/2017 TECHNIQUE: Helically acquired CT images were obtained through the cervical spine without intravenous contrast and reconstructed in the axial, coronal and sagittal planes. FINDINGS: The occipital condyles are intact and articulate normally with C1. Dens is intact. Atlantodental interval is normal.Lateral masses of C1 and two are aligned. Multilevel discogenic and facet hypertrophic degenerativechanges. Vertebral hypertrophy is present multiple levels. There is grade 1 anterolisthesis of C4 on C5. There is no evidence of displaced fracture. There is mild canal stenosis at C6-7 in association with posterior projecting disc ossific complex. There is grade 1 anterolisthesis of C7 on T1. Paracervical soft tissues are unremarkable. Lung apices are clear, IMPRESSION: Multilevel degenerative changes without fracture or subluxation. Dictated by Conrad Pineda M.D.Workstation ID:[id number] CT EXTREMITY LOWER RIGHT WITHOUT CONTRAST Result Date: 10/16/2020 CT EXTREMITY LOWER RIGHT WITHOUT CONTRAST performed on 10/16/2020 12:11 AM Indication:INJURY, Comparison: None Technique: Helically acquired CT images were obtained through the right foot and ankle without intravenous contrast and reconstructed in axial, coronal and sagittal planes. Findings: On the medial aspect of the ankle there is a domed fluid structure measuring 3.3 x 0.7 cm within the dermis. There is diffuse edema throughout the subcutaneous soft tissues with skin thickening over the dorsum of the foot. There is no focal loculated fluid collection. There is no evidence of gas within thesoft tissues. Extensive disorganization and fusion is seen within the mid and hindfoot relating to neurogenic or remote traumatic injury. No evidence of acute osseous abnormality. IMPRESSION: 1. Diffuse edema as well as dorsal skin thickening. No abscess or free air. No acute bony abnormality. 2. 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 DICTATEDBY: Conrad Pineda M.D.Workstation ID:[id number] MAMMOGRAPHY SCREEN BILATERAL WITH CAD Result Date: 09/23/2020 #[id number] - MAMMOGRAPHY SCREEN BILATERAL WITH CAD DIGITAL SCREENING MAMMOGRAM WITH CAD: 09/23/2020 INDICATIONS: The patient is asymptomatic. Comparison is made to exam dated: 07/17/2019 mammogram - [facility]. There are scattered areas of fibroglandular density in both breasts. Current study was also evaluated with a Computer Aided Detection (CAD) system. No significant masses, calcifications, or other findings are seen in either breast. There has been no significant interval change. IMPRESSION:NEGATIVE There is no mammographic evidence of malignancy. A 1 year screening mammogram is recommended. A result summary letter will be sent to the patient. The patient has been entered into a reminder system with the target due date for the next mammogram. Electronically signed by: Eduardo zuniga/troy:09/23/2020 15:35:40 letter sent: Category 1-2 Mammogram BI-RADS: 1 Negative US VENOUS DOPPLER RIGHT LOWER Result Date: 10/16/2020 ULTRASOUND VENOUS DOPPLER RIGHT LOWER EXTREMITY VEINS: 10/16/2020 1:48 AM Indication: Pain and swelling. Examination: Ultrasonographic evaluation of the veins of the right lower extremity was performedto evaluate for the clinically suspected deep venous thrombosis. The left common femoral vein was evaluated as well. Comparison: None. Findings: Color flow imaging demonstrates normal flow. Two-dimensional imaging demonstrates no evidence of filling defect or limited compressibility of the common femoral, superficial femoral, popliteal vein and visualized calf veins. Doppler interrogation demonstrates normal phasic flow with respiration with adequate augmentation and normal response to Valsalva maneuver. IMPRESSION: No evidence of right lower extremity deep or superficial venous thrombosis. Dictated byConrad Pineda M.D. Workstation ID:[id number] CT HEAD (URGENT-ANTICOAGULATED HEAD INJURY PATIENT) Result Date: 10/16/2020 CT HEAD (URGENT-ANTICOAGULATED HEAD INJURY PATIENT), 10/15/2020 11:50 PM. INDICATION: INJURY, . COMPARISON: 05/15/2019. TECHNIQUE: Multiple axial images were obtained through the head without IV contrast. Coronal reconstructions were obtained. Dose reduction: mA and/or kV are were adjusted by automated exposure control software based upon patient's height and weight. FINDINGS: No acute intracranial hemorrhage. No extra-axial fluid collection. No mass effect. No midline shift. No herniation. No evidence of acute large territory transcortical infarct. Stable chronic right ganglial capsular lacunarinfarcts involving the lentiform nucleus and caudate head. Stable-appearing pattern of scattered and confluent hypoattenuating foci involving the periventricular, deep and subcortical white matter ofbilateral cerebral hemispheres and the airam, nonspecific but most likely reflecting chronic small vessel ischemia mildly advanced for age. Ventricles and sulci are age appropriate. Basal cisterns are patent and symmetric. Intracranial atherosclerotic calcifications. Visualized paranasal sinuses areessentially clear. Visualized mastoid air cells are essentially clear. Intraorbital soft tissues appear grossly normal. Hyperostosis frontalis interna. No depressed calvarial fracture. IMPRESSION: 1. NO ACUTE INTRACRANIAL HEMORRHAGE OR MASS EFFECT. NO DEPRESSED CALVARIAL FRACTURE. 2.STABLE-APPEARING MILD PRESUMED CHRONIC SMALL VESSEL ISCHEMIC CHANGES. MRI HAS IMPROVED SENSITIVITY FOR RECENT INFARCT OR SUBTLE LESION. DICTATED BY LOREN SALICDO M.D.Workstation ID:[id number] STRESS TEST EKG WITH NM IMAGING Result Date: 10/04/2020 Nicholas Lemon, 10/04/2020 11:52 AM [facility] CARDIAC LEXISCAN STRESS TEST EKG PORTION Procedure Date: 10/04/2020 Patient Name: Hanna Nelson : 1940 INDICATION FOR STUDY To evaluate the severity and extent of myocardial ischemia PROCEDURE DESCRIPTION: Procedure: Procedure, indications, potential complications,and alternatives were explained to the patient who appeared to understand. Opportunity for questions was provided and informed consent was obtained. Pre-test EKG was reviewed and order given to proceed with pharmacological stress test. The patient received a total of 0.4mg of IV regadenoson as IV bolus. Resting heart rate was 75 bpm and maximum heart rate was 91 bpm after IV regadenoson. Resting blood pressure was 142/74 mmHg and the maximum blood pressure during the exam was 167/73 mm Hg. WithIV regadenoson the patient had symptoms of shortness of breath and headache which improved in recovery. ELECTROCARDIOGRAPHIC DATA: Baseline ekg showed sinus rhythm with nonspecific ST changes. With IV regadenoson, no significant ST segment deviation is noted. No significant arhythmias seen EKG portion of this study is negative for ischemia. CONCLUSIONS: Pharmacological stress test with regadenoson Negative Lexiscan EKG portion for ischemia No arrhythmia Normal blood pressure and heart rate response Corelation with nuclear imaging is needed and report to follow separately Electronically signedby: Nicholas LemonDO, 10/04/2020 11:51 AM XR CHEST 1V POST LINE/TUBE PLACEMENT Result Date: 10/18/2020 Chest History: PICC line placement Comparison: 09/04/2020 Findings: AP view of the chest demonstrates no focal acute infiltrate. The heart is borderline in size. Right PICC line tip near cavoatrial junction. IMPRESSION: Right PICC line tip near the cavoatrial junction. Dictated by Liset Wilson MD, PhD Workstation ID:[id number] Signature Electronically signed by: So Nielsen MD, 10/19/2020 10:40 AM * Martita Fallon MSW, LSW - 10/19/2020 8:44 AM EST Images from the original note were not included. Hospital Discharge Planning Communication Statement Patient Name: Hanna Nelson Date of : 1940 This patient's medical record has been reviewed and the following information confirmed per documentation: YES/NO: Yes Patient has been fever-free (temperature less than 100.4 F) for 24 hours without the aid of antipyretics like Tylenol, Motrin, etc. Patient has been screened for exposure to Coronavirus per CDC recommendations at point of entry to hospital and triggered a positive screen according to healthcare algorithm per CDC, was tested, and found to be negative for SARS-CoV-2 (COVID-19) per CDC recommendations. Patient was tested for SARS-CoV-2 (COVID-19), most recent results received on 10/16/20 and was foundto be Negative. Electronically signed by: FELICITA Wang LSW, 10/19/2020 * Lindsey Lamar OTR/Jaz - 10/18/2020 3:10 PM EST OCCUPATIONAL THERAPY ATTEMPT 10/18/2020 Patient Information: Patients Name: Hanna Nelson Therapy was attempted: 1500 Therapy not performed secondary to: PICC placement this date, will continue to follow Thank you for allowing me to participate in the care of Hanna Nelson. Please contact me with any questions. Signature: Lindsey Gann, OTR/L, UNDERWRITING SUPPORT MANAGER, 10/18/2020, 3:11 PM * Tiffany Palomares PT - 10/18/2020 3:08 PM EST PHYSICAL THERAPY 10/18/2020 Patient Information: Patients Name: Hanna Nelson Therapy was attempted: 1500 Therapy not performed secondary to: Patient getting PICC placed at this time. Thank you for allowing me to participate in the care of Hanna Nelson. Please contact me with any questions. 10/18/2020, 3:08 PM * Dayna Camacho [facility] - 10/18/2020 1:11 PM EST [facility] Pharmacy Referral Sign-off 10/18/2020 Patient's Name: Hanna Nelson Referring Provider: Augusta Weston APRN Thank you for allowing pharmacy to participate in the management of your patient's vancomycin therapy. At this time, pharmacy will sign-off from the case as the therapy has been discontinued. Please consider referral to pharmacy again if the need arises. Electronically signed by: Dayna Camacho RPH, 10/18/2020 1:11 PM [phone] * So Nielsen MD - 10/18/2020 11:40 AM EST Images from the original note were not included. Internal Medicine Hospitalist Progress Note Hospitalist: So Nielsen MD [phone] Patient Identifier/Hospitalist Patient Name: Hanna Nelson : 1940 Room / Bed : 412/412-1 Facitily : [facility] Date of Service: 10/18/2020 CSN: [id number] Admit Date: 10/15/2020 11:16 PM Attending Physician: So Nielsen MD Primary Care Physician: Lisy Pace I saw and examined the patient at 11:40 AM on 10/18/2020 Disposition Disposition: Home/ECF in 24-72 hrs,pending clinical improvement Reason for continued hospitalization IVF IV Abx Heparin gtt Protonix gtt Cardizem/Amiodarone gtt Pressors gtt Intubated Pending Clinical recovery Pending Procedures Pending Consult eval Pending MRI/Imaging IV Lasix/Bumex Requiring BIPAP Awaiting Cultures Adjusting medications X IV antibiotic, heart rate control, right lower extreme wound care Assessment and Plan Hanna Nelson is a 80 year old female Hospital day# 2 Admitted for: Principal Problem: Cellulitis Narrative : Patient is 80-year-old female, with history of diabetes atrial fibrillation hypertension hyperlipidemia 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 Assessment and plan: Right lower extremity cellulitis with right lower committee heel ulcer unstageable, present on admission: Has suboptimal response to IV ceftriaxone and vancomycin, will change antibiotic to linezolid, MRSA nares is negative, wound care, consult Dr. Navarro Atrial fibrillation with RVR: Likely secondary to refusing atenolol yesterday, patient is agreeableto take atenolol now, as needed IV metoprolol for sustained heart rate of more than 115, continue Eliquis. Patient refusing aspirin as he is on Eliquis, will DC aspirin, she wants to decrease the risk of bleeding Diarrhea: She developed diarrhea last night and today, will get a stool for C. difficile, gentle IVhydration Urinary urgency: Denies any pain or difficulty with micturition, suspect secondary to hyperactive colon From ongoing diarrhea, will continue to monitor, will not get UA as patient has already been onantibiotic NAYELY: Prerenal, suspect ATN, is on gentle IV hydration, kidney function improving Hyponatremia: Mild, improved Hypokalemia: Repleted Hypothyroidism: Levothyroxine Physical deconditioning PT OT eval, will need rehab at discharge DVT Prophylaxis: Lovenox/Heparin & SCD Code Status: Orders Placed This Encounter Total Support Subjective The patient is lying in bed, had multiple episodes of loose stool, also had urinary incontinence with loose stool denies any fever, has right lower extremity pain, swelling, also has had atrial fibrillation with RVR on monitor with heart rate in the range of 1 20-1 40 ROS : negative except for above Home Medications Current Facility-Administered Medications Medication Dose Route Frequency Provider Last Rate Last Admin metoprolol tartrate (LOPRESSOR) intravenous solution 2.5 mg 2.5 mg IV Push Once So Nielsen MD linezolid (ZYVOX) 600mg in D5W 300mL IVPB 600 mg Intravenous Q12H So Nielsen MD metoprolol tartrate (LOPRESSOR) intravenous solution 2.5 mg 2.5 mg IV Push Q6H PRN So Nielsen MD NaCl 0.9% 1,000 mL 1,000 mL Intravenous Continuous Juan M Quick MD 50 mL/hr at 10/18/20 0317 1,000 mL at 10/18/20 0317 atenoloL (TENORMIN) tablet 25 mg 25 mg Oral Q12H uJan M Quick MD 25 mg at 10/18/20 0929 insulin glargine (LANTUS) Subcutaneous INJ 5 Units 5 Units Subcutaneous Daily at 2100 Juan M Quick MD 5 Units at 10/17/20 2303 atropine syringe 0.5 mg 0.5 mg IV Push Q3Min PRN Augusta Weston APRN acetaminophen (TYLENOL) tablet 650 mg 650 mg Oral Q4H PRN Augusta Weston APRN 650 mg at 10/18/20 0523 apixaban (ELIQUIS) tablet 5 mg 5 mg Oral BID Augusta Weston APRN 5 mg at 10/18/20 09 aspirin (ASA EC) enteric coated tablet 81 mg 81 mg Oral daily Augusta Weston APRN 81 mg at 10/18/20 09 AtorvaSTATin (LIPITOR) tablet 20 mg 20 mg Oral daily Augusta Weston APRN 20 mg at 10/18/20926 fenofibrate nanocrystallized (TRICOR) tablet 145 mg 145 mg Oral daily Augusta Weston APRN 145 mg at 10/18/20926 fluticasone propionate (FLONASE) nasal spray 2 Amma 2 Amma Each Nostril daily Augusta Weston APRN 2 Amma at 10/17/20 0852 vitamins multiple therapeutic w/ minerals (THERAGRAN-M) tablet 1 Tab 1 Tab Oral daily Augusta Weston APRN 1 Tab at 10/18/20926 gabapentin (NEURONTIN) capsule 300 mg 300 mg Oral TID Augusta Weston APRN 300 mg at 10/18/20926 levothyroxine (SYNTHROID) tablet 100 mcg 100 mcg Oral AC Breakfast Augusta Weston APRN 100 mcg at 10/18/20 0523 saline flush 10 mL IV Push Q12H Augusta Weston APRN 1 Syringe at 10/17/20 2132 saline flush 10 mL IV Push PRN Augusta Weston APRN NaCl 0.9% 1,000 mL 1,000 mL Intravenous Continuous PRN Augusta Weston APRN ondansetron (ZOFRAN ODT) RAPID DISSOLVING tablet 4 mg 4 mg Oral Q6H PRN Augusta Weston APRN Or ondansetron (ZOFRAN) injection 4 mg 4 mg IV Push Q6H PRN Augusta Weston APRN docusate sodium-sennosides (LINDA-COLACE/SENOKOT-S) tablet 2 Tab 2 Tab Oral HS Augusta Weston APRN 2 Tab at 10/16/20 2224 dextrose (GLUTOSE) gel (delivers 15 g Carb) 37.5 g 37.5 g Oral PRN Augusta Weston APRN dextrose 50 % in water (D50W) intravenous syringe 5-12.5 g 5-12.5 g IV Push PRN Augusta Weston APRN glucagon injection 1 mg 1 mg Subcutaneous PRN Augusta Weston APRN insulin lispro (HumaLOG) injection 0-5 Units 0-5 Units Subcutaneous TID w/Meals & HS Augusta Weston APRN 1 Units at 10/18/20927 Objective Vital Signs: Temp: 99.3 F (37.4 C) (10/18/20 08) Temp Min: 95.7 F (35.4 C) Min taken time: 10/17/20 194 Max: 99.9 F (37.7 C) Max taken time: 10/18/20724 BP: 110/71 (10/18/20799) Pulse: 115 (10/18/20799) Resp: 20 (10/18/20799) SpO2: 97 % (10/18/20799) PHYSICAL EXAMINATION: GENERAL APPEARANCE: NAD, A&O X3 HEENT: PERRL, MMM, Neck: Supple, no LAD, no thyromegaly. CV: RRR, no added sounds heard Pulm: CTA B Abd: +BS, NT, ND. : WNL Extr: Right lower extremity cellulitis involving the entire right feet up to level of knee, swelling noted, also has skin break, right heel ulcer unstageable MS: 5/5 strength all groups. Neuro: CN II-XII intact, reflexes symmetric, Skin: No Rashes Diagnostic Data Recent Results (from the past 24 hour(s)) SODIUM, URINE RANDOM Collection Time: 10/17/20 11:45 AM Result Value Ref Range SODIUM, URINE RANDOM 20 MEQ/L OSMOLALITY, URINE Collection Time: 10/17/20 11:45 AM Result Value Ref Range OSMOLALITY, URINE 313 50 - 1,200 MOSM/KG ACCUCHECK GLUCOSE Collection Time: 10/17/20 12:07 PM Result Value Ref Range POINT OF CARE GLUCOSE 236 (H) 70 - 99 BASIC METABOLIC PANEL Collection Time: 10/17/20 2:35 PM Result Value Ref Range SODIUM 127 (L) 135 - 148 MEQ/L POTASSIUM 3.4 3.4 - 5.3 MEQ/L CHLORIDE 97 96 - 110 MEQ/L CARBON DIOXIDE 18 (L) 19 - 32 MEQ/L GLUCOSE 257 (H) 70 - 99 MG/DL BUN 45 (H) 3 - 29 MG/DL CREATININE 1.3 (H) 0.5 - 1.2 MG/DL BUN/CREAT RATIO 33 (H) 7.0 - 25.0 (CALC) CALCIUM 8.5 8.5 - 10.5 MG/DL ANION GAP 12 5 - 15 ESTIMATED GFR 39 ML/MIN/1.73M2 ACCUCHECK GLUCOSE Collection Time: 10/17/20 4:49 PM Result Value Ref Range POINT OF CARE GLUCOSE 187 (H) 70 - 99 MRSA BY PCR Collection Time: 10/17/20 6:42 PM Specimen: NASAL Result Value Ref Range MRSA BY PCR NOT DETECTED Reference range: NOT DETECTED (NOTE) Reference Range = NOT DETECTED PERFORMED AT: [place], [place] ACCUCHECK GLUCOSE Collection Time: 10/17/20 10:58 PM Result Value Ref Range POINT OF CARE GLUCOSE 233 (H) 70 - 99 BASIC METABOLIC PANEL Collection Time: 10/18/20 2:00 AM Result Value Ref Range SODIUM 134 (L) 135 - 148 MEQ/L POTASSIUM 3.1 (L) 3.4 - 5.3 MEQ/L CHLORIDE 102 96 - 110 MEQ/L CARBON DIOXIDE 17 (L) 19 - 32 MEQ/L GLUCOSE 190 (H) 70 - 99 MG/DL BUN 40 (H) 3 - 29 MG/DL CREATININE 1.2 0.5 - 1.2 MG/DL BUN/CREAT RATIO 34 (H) 7.0 - 25.0 (CALC) CALCIUM 9.0 8.5 - 10.5 MG/DL ANION GAP 15 5 - 15 ESTIMATED GFR 42 ML/MIN/1.73M2 BASIC METABOLIC PANEL Collection Time: 10/18/20 8:03 AM Result Value Ref Range SODIUM 137 135 - 148 MEQ/L POTASSIUM 3.1 (L) 3.4 - 5.3 MEQ/L CHLORIDE 106 96 - 110 MEQ/L CARBON DIOXIDE 17 (L) 19 - 32 MEQ/L GLUCOSE 167 (H) 70 - 99 MG/DL BUN 37 (H) 3 - 29 MG/DL CREATININE 1.0 0.5 - 1.2 MG/DL BUN/CREAT RATIO 35 (H) 7.0 - 25.0 (CALC) CALCIUM 8.7 8.5 - 10.5 MG/DL ANION GAP 14 5 - 15 ESTIMATED GFR 53 ML/MIN/1.73M2 ACCUCHECK GLUCOSE Collection Time: 10/18/20 8:18 AM Result Value Ref Range POINT OF CARE GLUCOSE 152 (H) 70 - 99 Imaging XR LEG TIBIA / FIBULA RIGHT 2 VIEWS Result Date: 10/16/2020 EXAMINATION: XR LEG TIBIA / FIBULA RIGHT 2 VIEWS. 10/16/2020 12:12 AM CLINICAL: Right leg pain. Fall.Screening wounds. COMPARISON: None. TECHNIQUE: Two radiographs of the right tibia and fibula were obtained. FINDINGS: No acute fracture is present. 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 There is subcutaneous edema of the calf with more focal area of soft tissue edema at the medial distal calf. No soft tissue gas is present. 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 No periostitis or bone erosion is visualized. IMPRESSION: No fracture of the right tibia and fibula. There is subcutaneous edema diffusely in thecalf with more focal soft tissue edema at the distal medial calf. DICTATED BY: SAIDA QUINTERO MD Workstation ID:[id number] DEXA BONE DENSITY SCAN AXIAL Result Date: 09/23/2020 09/23/2020 1:16 PM DXA BONE MINERAL DENSITY SCAN: INDICATION: Osteoporosis screening MACHINE: Zighra COMMENT: The bone mineral density (BMD) from L1 to L4 is 1.551 g/cm2 with T-score of 3.1, inthe normal range. The measurement is exaggerated by degenerative changes. The BMD in the left totalhip is 0.872 g/cm2 with T-score of -1.1, in the osteopenia range. The BMD in the left femoral neck is 0.833 g/cm2 with T-score of -1.5, in the osteopenia range. The BMD in the right radius is 0.761 gm/cm2 with a T-score of -1.3, in the osteopenia range. The FRAX 10-year probability for a major osteoporotic fracture is 31.7% and for a hip fracture is 17.6%. IMPRESSION: Osteopenia at some areas as described above. DICTATED BY: SHIRA DOS SANTOS MD Workstation ID:[id number] NM MYOCARDIAL PERFUSION IMAGING Result Date: 10/04/2020 CARDIAC STRESS TEST Procedure Date: 10/04/2020 Patient Name: Hanna Nelson :1940 INDICATION FOR STUDY To evaluate the extent and severity of coronary artery disease PROCEDURE DESCRIPTION: Procedure: ELECTROCARDIOGRAPHIC DATA: Baseline ekg showed sinus rhythm with nonspecific ST changes. With IV regadenoson, no significant ST segment deviation is noted. No significant arhythmias seen EKG portion of this study is negative for ischemia. CONCLUSIONS: Pharmacological stress test with regadenoson Negative Lexiscan EKG portion for ischemia No arrhythmia Normal blood pressure and heart rate response NUCLEAR IMAGES: Patient received a dose of 11.1 mCi of Technetium 99m Myoview at rest and received a dose of 38.8 mCi of the same tracer at stress. Gating was applied to these images for calculation of ejection fraction and assessment of wall motion. Attenuation correction was applied to these images as well. Rest Images Reveal: Uniform uptake of the myocardial perfusion tracer Stress Images Reveal: Uniform uptake of the myocardial perfusion tracer TID Score: 1.02 Gated Wall Motion Analysis: Normal left ventricular wall motion and normal calculated ejection fraction of 75%. Normal LV volume with end-diastolic volume calculated at 84 cc. CONCLUSIONS: EKG Portion: Negative Lexiscan EKG portion for ischemia Normal perfusion study no significant evidence of perfusion defect suggestive of ischemia or scar noted. Normal ejection fraction, EF 75%. Low risk for cardio vascular events based on perfusion study, correlate clinically. Electronically signed by: Nicholas Lemon DO, 10/04/2020 1:[address] SPINE CERVICAL WITHOUT CONTRAST Result Date: 10/16/2020 CT SPINE CERVICAL WITHOUT CONTRAST performed 10/16/2020 1:05 AM INDICATION: Fall COMPARISON: 06/30/2017 TECHNIQUE: Helically acquired CT images were obtained through the cervical spine without intravenous contrast and reconstructed in the axial, coronal and sagittal planes. FINDINGS: The occipital condyles are intact and articulate normally with C1. Dens is intact. Atlantodental interval is normal.Lateral masses of C1 and two are aligned. Multilevel discogenic and facet hypertrophic degenerativechanges. Vertebral hypertrophy is present multiple levels. There is grade 1 anterolisthesis of C4 on C5. There is no evidence of displaced fracture. There is mild canal stenosis at C6-7 in association with posterior projecting disc ossific complex. There is grade 1 anterolisthesis of C7 on T1. Paracervical soft tissues are unremarkable. Lung apices are clear, IMPRESSION: Multilevel degenerative changes without fracture or subluxation. Dictated by Conrad Pineda M.D.Workstation ID:[id number] CT EXTREMITY LOWER RIGHT WITHOUT CONTRAST Result Date: 10/16/2020 CT EXTREMITY LOWER RIGHT WITHOUT CONTRAST performed on 10/16/2020 12:11 AM Indication:INJURY, Comparison: None Technique: Helically acquired CT images were obtained through the right foot and ankle without intravenous contrast and reconstructed in axial, coronal and sagittal planes. Findings: On the medial aspect of the ankle there is a domed fluid structure measuring 3.3 x 0.7 cm within the dermis. There is diffuse edema throughout the subcutaneous soft tissues with skin thickening over the dorsum of the foot. There is no focal loculated fluid collection. There is no evidence of gas within thesoft tissues. Extensive disorganization and fusion is seen within the mid and hindfoot relating to neurogenic or remote traumatic injury. No evidence of acute osseous abnormality. IMPRESSION: 1. Diffuse edema as well as dorsal skin thickening. No abscess or free air. No acute bony abnormality. 2. 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 DICTATEDBY: Conrad Pineda M.D.Workstation ID:[id number] MAMMOGRAPHY SCREEN BILATERAL WITH CAD Result Date: 09/23/2020 #[id number] - MAMMOGRAPHY SCREEN BILATERAL WITH CAD DIGITAL SCREENING MAMMOGRAM WITH CAD: 09/23/2020 INDICATIONS: The patient is asymptomatic. Comparison is made to exam dated: 07/17/2019 mammogram - [facility]. There are scattered areas of fibroglandular density in both breasts. Current study was also evaluated with a Computer Aided Detection (CAD) system. No significant masses, calcifications, or other findings are seen in either breast. There has been no significant interval change. IMPRESSION:NEGATIVE There is no mammographic evidence of malignancy. A 1 year screening mammogram is recommended. A result summary letter will be sent to the patient. The patient has been entered into a reminder system with the target due date for the next mammogram. Electronically signed by: Eduardo zuniga/troy:09/23/2020 15:35:40 letter sent: Category 1-2 Mammogram BI-RADS: 1 Negative US VENOUS DOPPLER RIGHT LOWER Result Date: 10/16/2020 ULTRASOUND VENOUS DOPPLER RIGHT LOWER EXTREMITY VEINS: 10/16/2020 1:48 AM Indication: Pain and swelling. Examination: Ultrasonographic evaluation of the veins of the right lower extremity was performedto evaluate for the clinically suspected deep venous thrombosis. The left common femoral vein was evaluated as well. Comparison: None. Findings: Color flow imaging demonstrates normal flow. Two-dimensional imaging demonstrates no evidence of filling defect or limited compressibility of the common femoral, superficial femoral, popliteal vein and visualized calf veins. Doppler interrogation demonstrates normal phasic flow with respiration with adequate augmentation and normal response to Valsalva maneuver. IMPRESSION: No evidence of right lower extremity deep or superficial venous thrombosis. Dictated byConrad Pineda M.D. Workstation ID:[id number] CT HEAD (URGENT-ANTICOAGULATED HEAD INJURY PATIENT) Result Date: 10/16/2020 CT HEAD (URGENT-ANTICOAGULATED HEAD INJURY PATIENT), 10/15/2020 11:50 PM. INDICATION: INJURY, . COMPARISON: 05/15/2019. TECHNIQUE: Multiple axial images were obtained through the head without IV contrast. Coronal reconstructions were obtained. Dose reduction: mA and/or kV are were adjusted by automated exposure control software based upon patient's height and weight. FINDINGS: No acute intracranial hemorrhage. No extra-axial fluid collection. No mass effect. No midline shift. No herniation. No evidence of acute large territory transcortical infarct. Stable chronic right ganglial capsular lacunarinfarcts involving the lentiform nucleus and caudate head. Stable-appearing pattern of scattered and confluent hypoattenuating foci involving the periventricular, deep and subcortical white matter ofbilateral cerebral hemispheres and the airam, nonspecific but most likely reflecting chronic small vessel ischemia mildly advanced for age. Ventricles and sulci are age appropriate. Basal cisterns are patent and symmetric. Intracranial atherosclerotic calcifications. Visualized paranasal sinuses areessentially clear. Visualized mastoid air cells are essentially clear. Intraorbital soft tissues appear grossly normal. Hyperostosis frontalis interna. No depressed calvarial fracture. IMPRESSION: 1. NO ACUTE INTRACRANIAL HEMORRHAGE OR MASS EFFECT. NO DEPRESSED CALVARIAL FRACTURE. 2.STABLE-APPEARING MILD PRESUMED CHRONIC SMALL VESSEL ISCHEMIC CHANGES. MRI HAS IMPROVED SENSITIVITY FOR RECENT INFARCT OR SUBTLE LESION. DICTATED BY LOREN SALCIDO M.D.Workstation ID:[id number] STRESS TEST EKG WITH NM IMAGING Result Date: 10/04/2020 Nicholas Lemon DO 10/04/2020 11:52 AM [facility] CARDIAC LEXISCAN STRESS TEST EKG PORTION Procedure Date: 10/04/2020 Patient Name: Hanna Nelson : 1940 INDICATION FOR STUDY To evaluate the severity and extent of myocardial ischemia PROCEDURE DESCRIPTION: Procedure: Procedure, indications, potential complications,and alternatives were explained to the patient who appeared to understand. Opportunity for questions was provided and informed consent was obtained. Pre-test EKG was reviewed and order given to proceed with pharmacological stress test. The patient received a total of 0.4mg of IV regadenoson as IV bolus. Resting heart rate was 75 bpm and maximum heart rate was 91 bpm after IV regadenoson. Resting blood pressure was 142/74 mmHg and the maximum blood pressure during the exam was 167/73 mm Hg. WithIV regadenoson the patient had symptoms of shortness of breath and headache which improved in recovery. ELECTROCARDIOGRAPHIC DATA: Baseline ekg showed sinus rhythm with nonspecific ST changes. With IV regadenoson, no significant ST segment deviation is noted. No significant arhythmias seen EKG portion of this study is negative for ischemia. CONCLUSIONS: Pharmacological stress test with regadenoson Negative Lexiscan EKG portion for ischemia No arrhythmia Normal blood pressure and heart rate response Corelation with nuclear imaging is needed and report to follow separately Electronically signedby: Nicholas Lemon DO, 10/04/2020 11:51 AM Signature Electronically signed by: So Nielsen MD, 10/18/2020 11:40 AM * Juan M Quick MD - 10/17/2020 5:05 PM EST Images from the original note were not included. [facility] Progress Note 10/17/2020 Patient Identifier/Hospitalist Patient: Hanna Nelson; 1940 I saw and examined the patient on 10/17/2020 at 5:05 PM. Hospitalist: Juan M Quick MD Disposition/Assessment and Plan Barriers to Discharge: Awaiting improvement of right leg cellulitis, hyponatremia, acute kidney injury . Patient was admitted to the hospital from Home and plan to discharge to INPT REHAB on 10/19/2020 Narrative: 80-year-old female with a history of diabetes, A. 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 Started on broad-spectrum antibiotics. IV fluid bolus given followed by continuous IV fluids. Overall clinically improving. Hyponatremia improving as well with fluids. Assessment/Plan: Hanna Nelson is a 80 year old female, Hospital day# 1 Admitted for: Right leg cellulitis SIRS: Present on admission. Presented with leukocytosis, fever, right leg cellulitis. Started on broad-spectrum antibiotics. Blood cultures negative. IV fluid bolus given. Now on continuous IV fluids. Right lower extremity cellulitis- associated with DM: On broad-spectrum antibiotics. Overall improving. We will stop clindamycin. Continue Vanco and Rocephin. Check nasal MRSA swab. Provide wound care NAYELY: Suspect some ATN as well. Creatinine relatively stable at 1.3. Continue IV fluids gently. Hyponatremia: Given IV fluids. Sodium improved-when corrected to hyperglycemia, today sodium is 131. Continue gentle hydration. Proximal atrial fibrillation: Restart atenolol at lower dose as blood pressure now improved. Continue Eliquis. 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 Inpatient rehab suggested diabetes mellitus type 2: Holding oral medications. Sugars in 200s. Start on low-dose Lantus. Continue sliding scale insulin. DVT prophylaxis :eliquis Code status : total support I have personally reviewed all available lab, ECG's and radiologic studies. Plan discussed with patient Subjective Right leg cellulitis improving, less red today. No fever today. Worked with physical therapy this morning overall feeling better.. Objective Data No intake or output data in the 24 hours ending 10/17/20 1705 Temp: 97 F (36.1 C) (10/17/20 1552) Temp Min: 97 F (36.1 C) Min taken time: 10/17/20 1552 Max: 101.7 F (38.7 C) Max taken time: 10/16/20 2300 BP: 148/61 (10/17/20 1552) Pulse: 79 (10/17/20 1552) Resp: 18 (10/17/20 155) SpO2: 99 % (10/17/20 155) Exam: GEN: Awake, alert, in no distress HEENT: Oropharynx pink, moist, without lesion or exudate, PERRLA Neck: Supple, no adenopathy or thyromegaly, no appreciable bruit CV: Regular rate and rhythm, no murmur, rub, click or gallop PULM: Lungs are clear to auscultation bilaterally, no rales or rhonchi Abd: Soft, nontender, nondistended, normal bowel sounds, no mass or organomegaly Neuro/Psych: Speech normal, mental status intact. Extrem: Right lower extremity: Erythema looks less angry and contained in the markings; edematous with 2 open areas Skin: Color, turgor normal, no rash or lesions None Pending Labs reviewed COMPLETE BLOOD COUNT Recent Labs 10/17/20 0657 WBC 12.8* RBC 3.14* HEMOGLOBIN 9.7* HEMATOCRIT 29.1* PLATELETS 138 MCV 92.7 MCH 30.9 MCHC 33.3 RDW 14.8 COMPLETE BLOOD COUNT WITH DIFFERENTIAL Recent Labs 10/17/20 0657 WBC 12.8* RBC 3.14* HEMOGLOBIN 9.7* HEMATOCRIT 29.1* PLATELETS 138 MCV 92.7 MCH 30.9 MCHC 33.3 RDW 14.8 COMPREHENSIVE METABOLIC PANEL Recent Labs 10/17/20 16410/17/20 1435 NA -- 127* POTASSIUM -- 3.4 CL -- 97 CO2 -- 18* GLUCOSE 187* 257* BUN -- 45* CREATININE -- 1.3* CA -- 8.5 BMP Recent Labs 10/17/20 16410/17/20 1435 NA -- 127* POTASSIUM -- 3.4 CL -- 97 CO2 -- 18* GLUCOSE 187* 257* CREATININE -- 1.3* BUN -- 45* CA -- 8.5 ABG No results for input(s): PH, PCO2, PO2, O2SAT, BE, HCO3, TCO2, RSPCOM, DRAWN, NFIO2, LPM, LMODE, PEEP, PSV, DREC, MRR, LVT in the last 24 hours. RENAL FUNCTION PANEL Recent Labs 10/17/20164810/17/20 1435 NA -- 127* POTASSIUM -- 3.4 CL -- 97 CO2 -- 18* GLUCOSE 187* 257* BUN -- 45* CREATININE -- 1.3* CA -- 8.5 HEPATIC PANEL No results for input(s): ALB, ALKP, ALT, AST, DBIL, TBIL, TP in the last 24 hours. LIPID PANEL No results for input(s): CHOLESTEROL, TRIGLYCERIDE, HDL, LDL, VLDL in the last 24 hours. IRON PROFILE No results for input(s): FE1, FEBC, FESAT in the last 24 hours. COAGs No results for input(s): PROA, PT, PTTA, PTT, INR in the last 24 hours. CARDIAC ENZYMES No results for input(s): CK1, CKMB, INDINT, MBI, TROP in the last 24 hours. URINALYSIS No results for input(s): UAPR, UUROB, UNITRITES, ULEU, UWBC, URBC, UCAST, UEPI, UMUC, UBAC, UCRY, USPG, UBIL, UKET, UPH, UPROTEIN, UGLUCOSE, UBLOOD, UCOM, UCOM1, UTRIC, UYEA in the last 24hours. CD4 No results for input(s): CD4H, CD4L, CD8S, CD8L, CD4CD8 in the last 24 hours. BLOOD BANK No results for input(s): ABO, RH, IAT, DATG in the last 24 hours. Signature Electronically signed by: Juan M Quick MD, 10/17/2020 5:05 PM * Jacquelin Ray MSW, LISW-S - 10/17/2020 12:59 PM EST 12:59 PM SW spoke with Herman from [facility] who states patient is appropirate and they can accept at discharge.Per in [facility] patient ready for d/c in next 1-2 days. AVS complete to [facility]. SW will follow for transfer to [facility] at discharge. Electronically signed by: FELICITA Serrano LISW-S, 10/17/2020 1:00 PM * Michael Gaspar RN - 10/17/2020 11:48 AM EST Per huddle discussion, pt plan is to go to [facility] at discharge. No home care arranged. Electronically signed by: Michael Gaspar RN, 10/17/2020 11:48 AM * Della Gaston MSW, LISW-S - 10/16/2020 12:55 PM EST Social Work Progress Note SW reviewed chart. SW received update from PT that they worked with pt and are recommending IPR vs ECF. SW met with pt at bedside, who advises that after working with therapies, she realizes she can not discharge home alone. Pt states that she has been to [facility] in the past and would prefer placement there. SW discussed possible SNF if [facility] is unable to accept, but pt prefers to get answer from [facility] before considering. Referral sent, awaiting reply. Electronically signed by: FELICITA Moran LISW-S, [id number], 10/16/2020, 12:55 PM Saturday-Saturday Office Hours: 8:30am-5:00pm Holiday/Weekends: [phone] Urgent needs between 5P-7P every day: [phone] * Indu Vega RN - 10/16/2020 11:48 AM EST ICM Admit Note: Presents for evaluation/treatment of cellulitis. History of A- fib- on Eliquis, HTN,DM,PVD Met with Hanna Nelson who is a 80 year old female at bedside. Introduced self and role of cyanide case hardener; asked for and received permission to discuss discharge planning with visitors present in room. Discussed current living situation/dc plans. Patient lives alone Baseline Activity: Independent Current DME Equipment:DME: 4 wheeled walker, Blood glucose meter/supplies PCP Name : PaceLisy [phone] Pharmacy: [facility] Patient/family informed that a follow-up appointment may be made with PCP/Surgeon and time/date will be listed on discharge paperwork. Pt verbalized understanding through teach back. Met with patient to discuss Bundle Payment for Care Improvement (BPCI) and letter given. Patient verbalized understanding, copy left with patient. yes LOCKETT/IM Document Type Received On Received By Description [facility] IM Copy of Signed 10/16/20 Indu Vega, RN My chart enrollment: declined Patient expresses agreement with the discharge plan DC plans: home MACKENZIE: 10/18 Discharge disposition: Home Mode of transportation at discharge: Car(pt may need cab home) Primary support person/ relationship: amber Do Barriers to D/C : IV abx, BC Additional Needs: declined HHC- watch for home IV abx Will monitor progress and readiness for discharge. Indu Castle RNC,CCM,BSN Web Page Developer, Phone [phone] 10/16/2020 11:49 AM Office Hours: 8:30-5:00. For urgent needs between 5p-7p, please call [phone]. If after 7pm, please call [facility] at [phone] or [facility] at [phone]. * Anna Berry RN - 10/16/2020 9:37 AM EST Patient Hanna Nelson identified/referral received from : [facility] Patient identified for home health-not arranged at this time. Patient to be assessed by [facility] for potential home care needs. Electronically signed by: Anna Lindquist RN, 10/16/2020 9:37 AM * Emilie Razo [facility] - 10/16/2020 8:16 AM EST [facility] Pharmacy Vancomycin Referral Referral Date: 10/16/2020 Referring Physician: Augusta Weston APRN Vancomycin Day #: 1 Additional Antimicrobials: 1. clindamycin (day 1) 2. ceftriaxone (day 1) Indication: Cellulitis/SSTI Concurrent Nephrotoxins: N/A (one dosy of Zosyn given in the ED) Reviewed microbiology results, trends in labs, urine output, and fever Dialysis dependent: N/A Current vancomycin dosing method: New Start PLAN: Vancomycin dosing method: Initiate traditional dosing Vancomycin dose and schedule: Initiate 1000 mg every 24 hours following 1750 mg loading dose given in the ED 10/16 at 0027 -Therapeutic goal: 10-20 mcg/mL Rationale/Calculations: Estimated vancomycin Ke (hr ^-1): 0.03 hr^-1 Estimated vancomycin half-life (hr): 23.1 Recommended vancomycin dose (mg): 1345 Recommended frequency (hr): 29.7 Predicted vancomycin trough (mcg/mL): 15.23 Patient has chronic right diabetic foot ulcer and remote history of MRSA osteomyelitis of the left foot. Patient is in NAYELY and baseline CrCl is 0.7-0.9. Treatment is pending cultures. Will continue with daily dosing based on advanced age. Will continue to monitor and order vancomycin levels when appropriate. Electronically signed by: Emilie Razo RPH, 10/16/2020 8:18 AM [phone] documented in this encounter Summary Purpose Family History No Family History Records FoundNo Family History Records FoundNo Family History Records FoundNo Family History Records FoundNo Family History Records FoundNo Family History Records Found Additional Source Comments Reason for Visit (unrecogniz ed section and content) Status Reason Specialty Diagnoses / Procedures Referre d By Contact Referred To Contact Closed Diagnoses Essential hypertension Paroxysmal atrial fibrillation (HC CODE) Palpitation Type 2 diabetes mellitus with other specified complication, without long-term current use of insulin (HC CODE) Precordial pain Procedures NM MYOCARDIAL PERFUSION IMAGING NM MYOCARDIAL PERFUSION IMAGING Brian Wilson MD [address] [place] [address] Reason Comments Injury Status Reason Specialty Diagnoses / Procedures Referre d By Contact Referred To Contact Diagnoses Cellulitis Reason Comments Cellulitis Specialty Diagnoses / Procedures Referred By Contac t Referred To Contact Diagnoses Cellulitis of right lower leg Referral ID Status Reason Start Date Expiration Date Visits Re quested Visits Authorized [id number] 1 1 Reason Comments Hyperglycemia Reason Comments Hyperglycemia Pt comes in today af ter being seen at [facility] yesterday for high sugar above 600 pt states she was able to get under 400 and was sent home yesterday but now pt states her sugar is high again and wont read on the monitor. Pt is alert and oriented but seems lethargic pts bgl is 535 Specialty Diagnoses / Procedures [facility] Referred To Contact Diagnoses Hyperkalemia Urinary tract infection without hematuria, site unspecified Uncontrolled type 2 diabetes mellitus with hyperglycemia (HCC) Procedures . Fish Montes MD [address] [place] [address] Phone: tel: fax: [facility] [address] [place] [address] Phone: tel: Referral ID Status Reason Start Date Expiration Date Visits Re quested Visits Authorized [id number] 1 1 Reason Onset Date Comments Appointment Request 09/23/2024 Reason Comments Wound Care Specialty Diagnoses / Procedures Referred By [facility] t Referred To Contact Wound Care Diagnoses Diabetic ulcer of other part of right foot associated with diabetes mellitus due to underlying condition, with necrosis of muscle (HCC) Procedures [place] OFFICE/OUTPATIENT NEW HIGH MDM 60 MINUTES Lauren Castanon, 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 - NUCLEAR PLANT INSTRUMENT TECHNICIAN [address] [facility] [place] [address] [place] [address] Phone: tel: fax: [facility] [place] [address] [place] [address] Referral ID Status Reason Start Date Expiration Date V isits Requested Visits Authorized [id number] Closed Specialty Services Required 09/21/2024 09/21/2025 1 1 Reason Comments Wound Care Reason Comments Memory Loss Specialty Diagnoses / Procedures Referred By [facility] t Referred To Contact Geriatric Medicine Diagnoses Mild cognitive impairment of uncertain or unknown etiology Procedures new [place] [address] Phone: tel: fax: [facility] [place] [address] [place] [address] Phone: tel: fax: Referral ID Status Reason Start Date Expiration Date Visits Re quested Visits Authorized [id number] Closed 10/05/2024 04/03/2025 1 1 Reason Onset Date Comments Other 10/29/2024 Reason Onset Date Comments Hospital Follow-up 09/21/2024 Reason Comments Wound Check Reason Comments Altered Mental Status Specialty Diagnoses / Procedures Referred By Contac t Referred To Contact Diagnoses Confusion Cystitis Right arm weakness Procedures 0 Karolina Cooepr MD [address] [place] [address] Phone: tel: fax: [facility] [address] [place] [address] Phone: tel: Referral ID Status Reason Start Date Expiration Date Visits Re quested Visits Authorized [id number] 1 1 Reason Onset Date Comments Other 12/16/2024 Reason Comments Follow-up Diabetes Reason Comments Illness Generally not feelin g well Specialty Diagnoses / Procedures Referred By Contac t Referred To Contact Diagnoses Bacteremia SIRS (systemic inflammatory response syndrome) (HCC) Severe sepsis (HCC) Procedures 0 Patel Can MD [address] [place] [address] Phone: tel: fax: [facility] PCU [address] [place] [address] Phone: tel: Referral ID Status Reason Start Date Expiration Date Visits Re quested Visits Authorized [id number] 1 1 Reason Comments Other Patient presents sta ting her PCP sent her in for elevated potassium. States they were told her potassium level was around 6. No other complaints or concerns. Patient denies CP/SOB. Patient a/o x 4. GCS 15. Specialty Diagnoses / Procedures Referred By Contac t Referred To Contact Diagnoses Atrial fibrillation with rapid ventricular response (HCC) Procedures 0 Patel Can MD [address] [place] [address] Phone: tel: fax: [facility] [address] [place] [address] Phone: tel: fax: Referral ID Status Reason Start Date Expiration Date Visits Re quested Visits Authorized [id number] 1 1 Reason Comments Fall Hip Pain Left hip pain Specialty Diagnoses / Procedures Referred By Contac t Referred To Contact Diagnoses Closed fracture of left hip, initial encounter (HCC) Procedures .. Janet Houston DO [address] [place] [address] Phone: tel: fax: [facility] [address] [place] [address] Phone: tel: Referral ID Status Reason Start Date Expiration Date Visits Re quested Visits Authorized [id number] 1 1 Reason Onset Date Comments Cancelled Appointment 04/14/2025 Nicholas Lemon, - 10/04/2020 7:30 AM EST Procedure Notes (unrecognize d section and content) Associated Order(s): STRESS TEST EKG WITH NM IMAGING [facility] CARDIAC LEXISCAN STRESS TEST EKG PORTION Procedure Date: 10/04/2020 Patient Name: Hanna Nelson : 1940 INDICATION FOR STUDY To evaluate the severity and extent of myocardial ischemia PROCEDURE DESCRIPTION: Procedure: Procedure, indications, potential complications, and alternatives were explained to the patient who appeared to understand. Opportunity for questions was provided and informed consent was obtained. Pre-test EKG was reviewed and order given to proceed with pharmacological stress test. The patient received a total of 0.4mg of IV regadenoson as IV bolus. Resting heart rate was 75 bpm and maximum heart rate was 91 bpm after IV regadenoson. Resting blood pressure was 142/74 mmHg and the maximum blood pressure during the exam was 167/73 mm Hg. With IV regadenoson the patient had symptoms of shortness of breath and headache which improved in recovery. ELECTROCARDIOGRAPHIC DATA: Baseline ekg showed sinus rhythm with nonspecific ST changes. With IV regadenoson, no significant ST segment deviation is noted. No significant arhythmias seen EKG portion of this study is negative for ischemia. CONCLUSIONS: Pharmacological stress test with regadenoson Negative Lexiscan EKG portion for ischemia No arrhythmia Normal blood pressure and heart rate response Corelation with nuclear imaging is needed and report to follow separately Electronically signed by: Nicholas Lemon DO, 10/04/2020 11:51 AM documented in this encounter Juan M Quick MD - 10/16/2020 2:29 AM EST H&P Notes (unrecognized sect ion and content) Images from the original note were not included. ATTENDING ATTESTATION: I have fully participated in the care of this patient along with 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 . I have personally seen, examined the patient, reviewed all pertinent clinical information including history, physical exam, and assessment and plan. I have also reviewed home medications, allergies and past medical, surgical, family and social histories for this patient. I agree with the assessment and plan with the following addendum. 80-year-old female came in with fevers and right leg cellulitis, falls and ataxia. On exam: no apparent distress. Neck supple no JVD. Chest bilateral air entry present, clear. Heart irregularly irregular, no murmurs. Abdomen soft, nontender. Extremities: No edema, cyanosis Neuro: Alert, oriented no focal deficits. All available labs, imaging studies,EKG reviewed. A/P: SIRS/right leg cellulitis: On broad-spectrum antibiotics. Blood cultures drawn. Continue IV fluids. Discontinue atenolol for now. NAYELY: IV fluids. Hyponatremia: Change fluids to normal saline. BMP every 8 hours. Check urine lites and osmolarity. Atrial fibrillation: Atenolol held. Continue to monitor. PT OT consulted. DVT prophylaxis:eliquis CODE STATUS: total support Rest of the management as outlined in RAJENDRA's note. Electronically signed by: Juan M Quick MD, 10/16/2020 12:27 PM [facility] History & Physical 10/16/2020 Patient Identifier/Hospitalist Patient Name: Hanna Nelson : 1940 I saw and examined the patient at 2:29 AM on 10/16/2020 Hospitalist: Augusta Weston, 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 7a-5p Disposition/Assessment and Plan Disposition: home in 48-72h pending clinical improvement Hospital Problems Principal Problem: Cellulitis Assessment/Plan: SIRS 2/2 Right lower extremity cellulitis Right foot diabetic ulcer- Charcot's arthropathy, POA S/p fall without injury, denies +LOC Acute kidney injury, pre-renal Paroxysmal afib, recently started on Eliquis HLD Essential hypertension, controlled Hypothyroidism NIDDM type II, controlled Spinal stenosis s/p lumbar laminectomy Prior CoVID 19 infection (07/2020) 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 -admit to medical floor with continuous cardiac monitoring -Vanc, Rocephin, Clindamycin (to decrease toxin production) -blood and urine cultures pending; de-escalate antibiotics as sensitivities result -complete 30cc/kg fluid bolus continued by IVF @100/hr -wound nurse consultation, pt missed wound clinic appointment on Saturday due to having fever -hold antihypertensives in setting of hypotension -continue atenolol with hold parameters -avoid further hypotension, NSAIDs and nephrotoxins; trend renal indices, monitor I&O -sliding scale insulin AC/HS -PT/OT -social work referral to assist with discharge planning -continue home medications DVT Prophylaxis: Eliquis Code Status: Subjective Chief Complaint: generalized weakness, fevers, fall without +LOC History of Present Illness: Hanna Nelson is an 80 year old female who has a history of hypertension, diabetis, lumbar radiculopathy, hypothyroidism, diabetic foot ulcer who presents to [facility] s/p fall and complaints of generalized weakness and subjective fevers for ~2 days. The patient states she became lightheaded and lost her balance subsequently falling and hitting the back of her head on the floor. She is on Eliquis but denies losing consciousness. There is no evidence of laceration or abrasion to her head on exam. A CTH without contrast was non-acute. The patient has a chronic right foot diabetic ulcer but has noticed worsening erythema and swelling of the right lower extremity on Saturday. She states she had a fever of ~102F as well. She states that she may have minutely injured her right leg while attempting to sit in her chair sometime on Saturday. The patient also endorses a remote history of MRSA osteomyelitis of the left foot. She was noted to have a low-grade temp (99F) in the ER as well as hypotension. Blood cultures were obtained and the patient was given fluids and started on Vanc and Zosyn. A urinalysis with reflex to culture is pending. The patient had an XR of the right tib/fib which are without evidence of an acute fracture. A venous doppler of the RLE was also obtained and did not show any evidence of VTE/DVT. A CT of the right lower extremity was completed and did not reveal evidence of osteomyelitis but did reveal diffuse edema and dorsal skin thickening. Laboratory work-up reveals some hyponatremia (125) as well as renal insufficiency (sCr 1.5, BUN 48) compared to lab work completed in August of this year. Her lactic acid is noted to be 1.6 and she has a leukocytosis with left shift. She currently denies fever or chills but endorses malaise. She states she has been eating and drinking normally but has noted decreased urine output. She denies CP or SOB. She does state that over the past few days she has had some palpitations. She denies n/v/d. She denies any current urinary complaints. The patient will be admitted for IV antibiotics and fluids. Review of Systems: 14 point review of systems has been completed and is negative unless noted above. Past Medical History: Diagnosis Date Arthritis Generalized Back pain Charcot's arthropathy 2016 Right Foot Ulcer COVID-19 07/26/2020 Diabetes DX- 1996 Type 2- On Metformin & Glyburide Fall 06/30/2017 Laceration to Scalp Hypercholesteremia On Lipitor Hypothyroid On Levothyroxine Irregular heart beat 07/31/2017 1 episode-ST done results negative Neurogenic claudication due to lumbar spinal stenosis October 2017 Peripheral neuropathy On Gabapentin Peripheral vascular disease (HC CODE) 2010 Unspecified essential hypertension On Amlodipine, Lisinopril & Atenolol Past Surgical History: Procedure Laterality Date CARDIAC STRESS TST,COMPLETE 08/01/2017 MVS- Irregular Heart Beat- Results Negative-EF>70% CAUDAL EPIDURAL BLOCK 09/02/2017 ECHO Historical 1987 MV- ? Why -Results Good EPIDURAL LUMBAR TRANSFORMINAL Left 03/25/2017 L3-L4 LAMINECTOMY DECOMPRESSION POSTERIOR 3 LEVEL N/A 10/22/2017 LAMINECTOMY DECOMPRESSION POSTERIOR 3 LEVEL performed by Adolfo Edwards MD at [facility] MAIN OR LIG/TRNSXJ FLP TUBE ABDL/VAG APPR UNI/BI Ligation or Transection of Fallopian Tubes, Unilat or Bilat LUMBAR TRANSFORAMINAL EPIDURAL 04/29/2017 L4-L5 Other Surgical History Left 01/24/2015 Left Foot Metatarsal Head Bone Biopsy per Dr Ann Vasquez @ [facility] Other Surgical History Right 10/17/2015 Irigation W/Sharp Excisional Debridement Right Foot. 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 per Dr Loaiza @ [facility] Other Surgical History 2009 Fractured Hip REMOVAL GALLBLADDER ~1970 [facility] WOUND VAC APPLICATION/CHANGE N/A 10/22/2017 WOUND VAC APPLICATION/CHANGE performed by Adolfo Edwards MD at [facility] MAIN OR Social History Socioeconomic History Marital status: Spouse name: Not on file Number of children: Not on file Years of education: Not on file Highest education level: Not on file Occupational History Not on file Tobacco Use Smoking status: Former Smoker Packs/day: 0.50 Years: 7.00 Pack years: 3.50 Types: Cigarettes Quit date: 08/12/1964 Years since quittin.2 Smokeless tobacco: Never Used Substance and Sexual Activity Alcohol use: Yes Alcohol/week: 1.0 standard drinks Types: 1 Cans of beer per week Comment: monthly Drug use: No Sexual activity: Not on file Other Topics Concern Not on file Social History Narrative Not on file Social Determinants of Health Financial Resource Strain: Difficulty of Paying Living Expenses: Food Insecurity: Worried About Running Out of Food in the Last Year: Ran Out of Food in the Last Year: Transportation Needs: Lack of Transportation (Medical): Lack of Transportation (Non-Medical): Physical Activity: Days of Exercise per Week: Minutes of Exercise per Session: Stress: Feeling of Stress : Social Connections: Frequency of Communication with Friends and Family: Frequency of Social Gatherings with Friends and Family: Attends Congregational Services: Active Member of Clubs or Organizations: Attends Club or Organization Meetings: Marital Status: Intimate Partner Violence: Fear of Current or Ex-Partner: Emotionally Abused: Physically Abused: Sexually Abused: Family History Problem Relation Age of Onset Diabetes Father Heart Disease Father [place] Hypertension Father Cancer Father Prostate No Known Problems Mother No Known Problems Sister Allergies: Allergies Allergen Reactions Tape 1"X5yd [Adhesive Tape] Rash Redness. Avoids. Prefers paper tape Home Medications: No outpatient medications have been marked as taking for the 10/15/20 encounter (Hospital Encounter). Objective Exam: Vital Signs: Temp: 99 F (37.2 C) (10/16/20 0119) Temp Min: 98.9 F (37.2 C) Min taken time: 10/15/20 2320 Max: 99 F (37.2 C) Max taken time: 10/16/20118 BP: (!) 85/46 (10/16/20 0204) Pulse: 74 (10/16/20203) Resp: 16 (10/16/20 0134) SpO2: 98 % (10/16/20203) General: awake, alert, oriented and in no distress HEENT: Oropharynx pink, moist, and without lesion or exudate, PERRLA CV: S1, S2 normal and irregularly irregular rhythm PUL: lungs clear to auscultation ABD: Abdomen soft, non-tender. BS normal. No masses or organomegaly Neuro: non-focal Extremity: Right pedal non-pitting, 2+ edema Skin: erythema, swelling and weeping noted to RLE, chronic diabetic ulcers to plantar and medial aspect of R foot; otherwise skin PWDI. Diagnostic Data: Labs--Reviewed: Recent Results (from the past 24 hour(s)) COMPLETE BLOOD COUNT WITH DIFFERENTIAL Collection Time: 10/15/20 11:28 PM Result Value Ref Range WBC COUNT 12.7 (H) 3.8 - 10.8 K/MM3 RBC COUNT 3.87 (L) 3.90 - 5.20 M/MM3 HEMOGLOBIN 11.7 (L) 12.0 - 15.6 G/DL HEMATOCRIT 36.1 35.0 - 46.0 % MCV 93.1 80.0 - 100.0 FL MCH 30.3 27.0 - 33.0 PG MCHC 32.6 32.0 - 36.0 G/DL RDW 14.5 9.0 - 15.0 % PLATELET COUNT 180 130 - 400 K/MM3 % SEGMENTED NEUTROPHILS 86.1 (H) 40.0 - 76.0 % % LYMPHOCYTES 6.4 (L) 14.0 - 51.0 % % MONOCYTES 6.8 0 - 14.0 % % EOSINOPHILS 0.3 0.0 - 7.0 % % BASOPHILS 0.4 0.0 - 2.0 % ABSOLUTE SEGMENTED NEUTROPHIL 10.9 (H) 1.5 - 7.8 K/MM3 ABSOLUTE LYMPHOCYTE 0.8 (L) 0.9 - 4.1 K/MM3 ABSOLUTE MONOCYTE 0.9 0.2 - 1.1 K/MM3 ABSOLUTE EOSINOPHIL 0.0 0.0 - 0.6 K/MM3 ABSOLUTE BASOPHIL 0.0 0.0 - 0.3 K/MM3 BASIC METABOLIC PANEL Collection Time: 10/15/20 11:28 PM Result Value Ref Range SODIUM 125 (L) 135 - 148 MEQ/L POTASSIUM 4.1 3.4 - 5.3 MEQ/L CHLORIDE 89 (L) 96 - 110 MEQ/L CARBON DIOXIDE 20 19 - 32 MEQ/L GLUCOSE 243 (H) 70 - 99 MG/DL BUN 48 (H) 3 - 29 MG/DL CREATININE 1.5 (H) 0.5 - 1.2 MG/DL BUN/CREAT RATIO 32 (H) 7.0 - 25.0 (CALC) CALCIUM 9.6 8.5 - 10.5 MG/DL ANION GAP 16 (H) 5 - 15 ESTIMATED GFR 32 ML/MIN/1.73M2 LACTIC ACID Collection Time: 10/15/20 11:35 PM Result Value Ref Range LACTIC ACID 1.6 0.5 - 2.2 MMOL/L SARS COV 2 RNA, QL REAL TIME RT PCR Collection Time: 10/16/20 1:25 AM Result Value Ref Range SARS CoV 2 RNA, RT PCR NOT DETECTED NDET comment, SARS COV-2 RNA, RT PCR (NOTE) Imaging--Reviewed: DEXA BONE DENSITY SCAN AXIAL Result Date: 09/23/2020 09/23/2020 1:16 PM DXA BONE MINERAL DENSITY SCAN: INDICATION: Osteoporosis screening MACHINE: Zighra COMMENT: The bone mineral density (BMD) from L1 to L4 is 1.551 g/cm2 with T-score of 3.1, in the normal range. The measurement is exaggerated by degenerative changes. The BMD in the left total hip is 0.872 g/cm2 with T-score of -1.1, in the osteopenia range. The BMD in the left femoral neck is 0.833 g/cm2 with T-score of -1.5, in the osteopenia range. The BMD in the right radius is 0.761 gm/cm2 with a T-score of -1.3, in the osteopenia range. The FRAX 10-year probability for a major osteoporotic fracture is 31.7% and for a hip fracture is 17.6%. IMPRESSION: Osteopenia at some areas as described above. DICTATED BY: SHIRA DOS SANTOS MD Workstation ID:[id number] OR MYOCARDIAL PERFUSION IMAGING Result Date: 10/04/2020 CARDIAC STRESS TEST Procedure Date: 10/04/2020 Patient Name: Hanna Nelson : 1940 INDICATION FOR STUDY To evaluate the extent and severity of coronary artery disease PROCEDURE DESCRIPTION: Procedure: ELECTROCARDIOGRAPHIC DATA: Baseline ekg showed sinus rhythm with nonspecific ST changes. With IV regadenoson, no significant ST segment deviation is noted. No significant arhythmias seen EKG portion of this study is negative for ischemia. CONCLUSIONS: Pharmacological stress test with regadenoson Negative Lexiscan EKG portion for ischemia No arrhythmia Normal blood pressure and heart rate response NUCLEAR IMAGES: Patient received a dose of 11.1 mCi of Technetium 99m Myoview at rest and received a dose of 38.8 mCi of the same tracer at stress. Gating was applied to these images for calculation of ejection fraction and assessment of wall motion. Attenuation correction was applied to these images as well. Rest Images Reveal: Uniform uptake of the myocardial perfusion tracer Stress Images Reveal: Uniform uptake of the myocardial perfusion tracer TID Score: 1.02 Gated Wall Motion Analysis: Normal left ventricular wall motion and normal calculated ejection fraction of 75%. Normal LV volume with end-diastolic volume calculated at 84 cc. CONCLUSIONS: EKG Portion: Negative Lexiscan EKG portion for ischemia Normal perfusion study no significant evidence of perfusion defect suggestive of ischemia or scar noted. Normal ejection fraction, EF 75%. Low risk for cardiovascular events based on perfusion study, correlate clinically. Electronically signed by: Nicholas Lemon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 antimicrobial-impregnated or antimicrobial-coated CVCs. Outcome: Progressing Goal: Knowledge of infection control procedures Outcome: Progressing Problem: Nutrition Deficit Goal: Adequate nutritional intake Outcome: Progressing Problem: Infection - Risk of, Urinary Catheter-Associated Urinary Tract Infection Goal: Absence of urinary tract infection signs and symptoms Outcome: Progressing Problem: Falls - Risk of Goal: Absence of falls Description: Avoid the routine use of bedrails or physical restraints as a fall-prevention intervention. Outcome: Progressing Goal: Knowledge of fall prevention Outcome: Progressing Problem: Self-care Deficit - Toileting Goal: Able to toilet independently Outcome: Progressing Problem: Skin Integrity - Impaired Goal: Decrease in wound size Outcome: Progressing Goal: Skin integrity intact Outcome: Progressing Problem: Discharge Planning Goal: Participation in care planning Outcome: Progressing Goal: Knowledge of medication management Outcome: Progressing Goal: Knowledge of discharge instructions Outcome: Progressing Problem: Activity Intolerance Goal: Improved activity tolerance Outcome: Progressing Problem: Infection Risk, Central Venous Catheter-Associated Goal: Absence of infection signs and symptoms Description: For patients undergoing CVC insertion (eg, adult patients at higher risk for central line-associated bloodstream infection or at increased risk for severe consequences from a central line-associated bloodstream infection), consider the use of antimicrobial-impregnated or antimicrobial-coated CVCs. Outcome: Progressing Goal: Knowledge of infection control procedures Outcome: Progressing Problem: Nutrition Deficit Goal: Adequate nutritional intake Outcome: Progressing Problem: Infection - Risk of, Urinary Catheter-Associated Urinary Tract Infection Goal: Absence of urinary tract infection signs and symptoms Outcome: Progressing Problem: Nutrition Deficit Goal: Adequate nutritional intake Note: MEDICAL NUTRITION THERAPY RECOMMENDATIONS: Nutrition Diet Change Recommended: None(hx DM, A1C 7.8 (06/27/2020), elevated glucose) Nutrition Additional Comments: Pt noted po, good. Pt noted weight, steady. Noted right foot diabetic ulcer. No noted N/V. Will continue to follow. Current Diet: Current Diet Order: Diabetic (Medium) Current Intake: 50-100% per 6 recorded meals Assessment: Additional Information: BMI: 28 (overweight) NUTRITION STATUS/RISK: May Meet Criteria For: Unable to determine(pt unavailable) Nutrition Risk: Moderate Nutrition Risk TOTAL NUTRIENT NEEDS: Total Calorie Needs (kcal): 7825-5701([address] jeor x 1.1 - 1.25 stress factor) Total Protein Needs (gms): 90-99(1.0 gm/kg - 1.1 gm/kg ) SIGNATURE: Hanna Benton DTR Office number: [phone] *Please note: Serum albumin and prealbumin are no longer recognized as reliable or specific biomarkers for malnutrition. Ann Morataya., Omar RMary Carmen Geiger. and Bin Arambula (2019), Hypoalbuminemia: Pathogenesis and Clinical Significance. Journal of Parenteral and Enteral Nutrition, 43: 181-193. Gaurav Juarez, Aurora Andrews. (2016). AND Pocket Guide to Nutrition Assessment. (3rd ed., pp. 104-108). [place], [place]: Academy of Nutrition and Dietetics. Please refer to the Medical Nutrition Therapy Evaluation/Assessment Documentation Flowsheet for full nutrition assessment Current Level of Function: Assist with ADLs Safety: Requires cues Verbal instructions: For safe assistive device use and For correct hand placement Recommendations: Use gait belt for all mobility. Encourage patient to sit up in chair for all meals with 1 person assist. Above information discussed with KENNA Frazier. Problem: Falls - Risk of Goal: Absence of falls Description: Avoid the routine use of bedrails or physical restraints as a fall-prevention intervention. Outcome: Progressing Goal: Knowledge of fall prevention Outcome: Progressing Problem: Self-care Deficit - Toileting Goal: Able to toilet independently Outcome: Not Progressing Problem: Skin Integrity - Impaired Goal: Decrease in wound size Outcome: Progressing Goal: Skin integrity intact Outcome: Not Progressing Problem: Discharge Planning Goal: Knowledge of medication management Outcome: Progressing Problem: Falls - Risk of Goal: Absence of falls Description: Avoid the routine use of bedrails or physical restraints as a fall-prevention intervention. Outcome: Progressing Goal: Knowledge of fall prevention Outcome: Progressing Problem: Self-care Deficit - Toileting Goal: Able to toilet independently Outcome: Progressing Problem: Skin Integrity - Impaired Goal: Decrease in wound size Outcome: Progressing Goal: Skin integrity intact Outcome: Progressing Problem: Discharge Planning Goal: Participation in care planning Outcome: Progressing Goal: Knowledge of medication management Outcome: Progressing Goal: Knowledge of discharge instructions Outcome: Progressing Problem: Activity Intolerance Goal: Improved activity tolerance Outcome: Progressing Problem: Infection Risk, Central Venous Catheter-Associated Goal: Absence of infection signs and symptoms Description: For patients undergoing CVC insertion (eg, adult patients at higher risk for central line-associated bloodstream infection or at increased risk for severe consequences from a central line-associated bloodstream infection), consider the use of antimicrobial-impregnated or antimicrobial-coated CVCs. Outcome: Progressing Goal: Knowledge of infection control procedures Outcome: Progressing Problem: Self-care Deficit - Toileting Goal: Able to toilet independently Note: Current Level of Function: Assist with ADLs Safety: Requires cues Recommendations: Use gait belt for all mobility. Encourage patient to transfer to [facility] for toileting needs (pain limiting) with 1 person assist. Problem: Falls - Risk of Goal: Absence of falls Description: Avoid the routine use of bedrails or physical restraints as a fall-prevention intervention. Outcome: Progressing Goal: Knowledge of fall prevention Outcome: Progressing Problem: Skin Integrity - Impaired Goal: Decrease in wound size Outcome: Progressing Goal: Skin integrity intact Outcome: Progressing Problem: Discharge Planning Goal: Participation in care planning Outcome: Progressing Goal: Knowledge of medication management Outcome: Progressing Goal: Knowledge of discharge instructions Outcome: Progressing Problem: Activity Intolerance Goal: Improved activity tolerance Outcome: Progressing Problem: Infection Risk, Central Venous Catheter-Associated Goal: Absence of infection signs and symptoms Description: For patients undergoing CVC insertion (eg, adult patients at higher risk for central line-associated bloodstream infection or at increased risk for severe consequences from a central line-associated bloodstream infection), consider the use of antimicrobial-impregnated or antimicrobial-coated CVCs. Outcome: Progressing Goal: Knowledge of infection control procedures Outcome: Progressing Problem: Falls - Risk of Goal: Absence of falls Description: Avoid the routine use of bedrails or physical restraints as a fall-prevention intervention. Outcome: Progressing Goal: Knowledge of fall prevention Outcome: Progressing Problem: Discharge Planning Goal: Participation in care planning Outcome: Progressing Goal: Knowledge of medication management Outcome: Progressing Goal: Knowledge of discharge instructions Outcome: Progressing Problem: Activity Intolerance Goal: Improved activity tolerance Outcome: Progressing Problem: Falls - Risk of Goal: Absence of falls Description: Avoid the routine use of bedrails or physical restraints as a fall-prevention intervention. Outcome: Progressing Goal: Knowledge of fall prevention Outcome: Progressing Problem: Self-care Deficit - Toileting Goal: Able to toilet independently Outcome: Progressing Problem: Skin Integrity - Impaired Goal: Decrease in wound size Outcome: Progressing Goal: Skin integrity intact Outcome: Progressing Problem: Discharge Planning Goal: Participation in care planning Outcome: Progressing Goal: Knowledge of medication management Outcome: Progressing Goal: Knowledge of discharge instructions Outcome: Progressing Problem: Activity Intolerance Goal: Improved activity tolerance Outcome: Progressing Problem: Falls - Risk of Goal: Absence of falls Description: Avoid the routine use of bedrails or physical restraints as a fall-prevention intervention. Outcome: Progressing Goal: Knowledge of fall prevention Outcome: Progressing Problem: Self-care Deficit - Toileting Goal: Able to toilet independently Outcome: Progressing Note: Current Level of Function: General Transfers/Mobility: Current Status: Minimal assist(supine<>sit, sit<>stand, mobility w/ FWW) Recommendations: Use gait belt for all mobility. Considering pt's current functional status above, please encourage patient to complete OOB ADLs and ADL transfers with 1 person assist. Please see the OT documentation for detailed information regarding patient's functional performance. Problem: Falls - Risk of Goal: Absence of falls Description: Avoid the routine use of bedrails or physical restraints as a fall-prevention intervention. Outcome: Progressing Goal: Knowledge of fall prevention Outcome: Progressing Prior Level of Function: Gait: Household distances and Device: None Current Level of Function: Gait: Household distances, Device: Front wheeled walker and with moderate assist and knees buckling, and moderate assist for transfers due to B knees buckling Safety: Requires cues Impaired and h/o falls, bed alarm Recommendations: Use gait belt for all mobility. Encourage patient to chair for all meals with 1 person assist. Above information discussed with KENNA hull. PHYSICAL THERAPY EVALUATION 10/16/2020 Treatment Plan Certification Patient Information: Patient Name: Hanna Nelson Date of : 1940 Admitting Diagnosis: Cellulitis [L03.90] PT DISCHARGE RECOMMENDATIONS: Recommended Supervision level: Intermittent recommended due to decreased safety awareness Recommended Physical assist level: moderate assist for transfers and very limited ambulation, knees buckling Availability of assist recommended at discharge: Patient reports that recommended level of assist at discharge is NOT available. Caregiver Readiness for Discharge: No caregiver present for training. PT recommended upon Discharge: Recommend ongoing skilled therapy in an inpatient setting to address weakness and safety with functional mobility. Equipment Recommended upon Discharge: will cont to assess Other Consults Recommended: PM&R Consult for inpatient rehabilitation Therapy Session Information: Referral Date: 10/16/2020 Order: PT evaluate and treat Encounter Time Time In: 1130 Time Out: 1209 Total Time: 39 minutes Time Based Code Treatment Time: 24 minutes Activity Order: Activity progression protocol Patient Accompanied By: no visitors Della PIERSON , informed of treatment session this date. Precautions: Decreased safety: Fall risk, Decreased balance and Bed alarm Cardiovascular / respiratory impairments:Decreased endurance and Scheduled rest breaks Medical: Fall Risk(hypotensive) Bed/Chair Alarm activated after session: yes PATIENT HISTORY: Present Admission: Hanna Nelson is a 80 year old female admitted to [facility] on 10/15/[address] Quick H&P 10/16/2020: Assessment/Plan: SIRS 2/2 Right lower extremity cellulitis Right foot diabetic ulcer- Charcot's arthropathy, POA S/p fall without injury, denies +LOC Acute kidney injury, pre-renal Paroxysmal afib, recently started on Eliquis HLD Essential hypertension, controlled Hypothyroidism NIDDM type II, controlled Spinal stenosis s/p lumbar laminectomy Prior CoVID 19 infection (07/2020) 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 -admit to medical floor with continuous cardiac monitoring -Vanc, Rocephin, Clindamycin (to decrease toxin production) -blood and urine cultures pending; de-escalate antibiotics as sensitivities result -complete 30cc/kg fluid bolus continued by IVF @100/hr -wound nurse consultation, pt missed wound clinic appointment on Saturday due to having fever -hold antihypertensives in setting of hypotension -continue atenolol with hold parameters -avoid further hypotension, NSAIDs and nephrotoxins; trend renal indices, monitor I&O -sliding scale insulin AC/HS -PT/OT -social work referral to assist with discharge planning -continue home medications Past Medical History: Past Medical History: Diagnosis Date Arthritis Generalized Back pain Charcot's arthropathy 2016 Right Foot Ulcer COVID-19 07/26/2020 Diabetes DX- 1996 Type 2- On Metformin & Glyburide Fall 06/30/2017 Laceration to Scalp Hypercholesteremia On Lipitor Hypothyroid On Levothyroxine Irregular heart beat 07/31/2017 1 episode-ST done results negative Neurogenic claudication due to lumbar spinal stenosis October 2017 Peripheral neuropathy On Gabapentin Peripheral vascular disease (HC CODE) 2010 Unspecified essential hypertension On Amlodipine, Lisinopril & Atenolol Past Surgical History: Procedure Laterality Date CARDIAC STRESS TST,COMPLETE 08/01/2017 MVS- Irregular Heart Beat- Results Negative-EF>70% CAUDAL EPIDURAL BLOCK 09/02/2017 ECHO Historical 1987 [facility]- ? Why -Results Good EPIDURAL LUMBAR TRANSFORMINAL Left 03/25/2017 L3-L4 LAMINECTOMY DECOMPRESSION POSTERIOR 3 LEVEL N/A 10/22/2017 LAMINECTOMY DECOMPRESSION POSTERIOR 3 LEVEL performed by Adolfo Edwards MD at [facility] MAIN OR LIG/TRNSXJ FLP TUBE ABDL/VAG APPR UNI/BI Ligation or Transection of Fallopian Tubes, Unilat or Bilat LUMBAR TRANSFORAMINAL EPIDURAL 04/29/2017 L4-L5 Other Surgical History Left 01/24/2015 Left Foot Metatarsal Head Bone Biopsy per Dr Ann Vasquez @ [facility] Other Surgical History Right 10/17/2015 Irigation W/Sharp Excisional Debridement Right Foot. 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 per Dr Loaiza @ [facility] Other Surgical History 2009 Fractured Hip REMOVAL GALLBLADDER ~1970 [facility] WOUND VAC APPLICATION/CHANGE N/A 10/22/2017 WOUND VAC APPLICATION/CHANGE performed by Adolfo Edwards MD at [facility] MAIN OR Personal factors and/or comorbidities impacting PT Plan of Care: Challenges with discharge environment, Limited support, Medical comorbidities and Pain, Decreased Endurance , monitor vitals (hypotensive), edema, decreased skin integrity PRIOR LEVEL OF FUNCTION: Support System: Patient lives with Alone. Prior Level of Function: Household ambulator with no assistive device. Fall history: yes. Housing Environment: Home, 1 story and entry steps 1 Home Equipment and Services: Cane (Straight) Four wheeled walker with seat SUBJECTIVE: Patient and/or Caregiver States: agree to PT Patient Goals: to get stronger Pain Rating & Location: 4/10, At rest and increased pain in standing, RLE Action Taken to Address Pain: Repositioned, RN notified, Pain medication requested and Patient states pain tolerable for treatment OBJECTIVE EXAMINATION: Participation, Interaction, & Awareness: Level of Consciousness: Alert Orientation: Person, Place, Date, Situation and Command Following: WFL for PT Behavior: Cooperative Safety Awareness: Impaired, Demonstrates decreased insight into injury / illness and bed alarm, h/o falls Range of Motion: No deficits noted during functional tasks, WNL Strength: B LE Grossly 3/5 as demonstrated through functional mobility and strength screening. Edema: Right lower extremity: Moderate / severe, Pitting, Weeping and with blister noted Balance: Sitting Balance Grade: Fair: Pt is able to maintain static position without use of upper extremities. Standing Balance Grade: Fair -: Pt is able to maintain balance but requires upper extremity support. Poor: Pt requires physical assist to maintain balance. Pt required Minimal assist and Moderate assist for static standing and Minimal assist and Moderate assist for dynamic standing balance B knees buckling upon standing from bed and toilet Functional Mobility: Rolling Assistance: Supervision Rolling Technique: With bedrail Supine <> Sit Assistance: Minimal assist Supine <> Sit Technique: Supine to/from side to/from sit, Toward right side, With bedrail and Head of bed elevated. Assistance required to scoot to edge of bed: Close supervision and Contact assist Sit <> Stand Assistance: Minimal assist;Moderate assist Sit <> Stand Technique: From bed and From BSC/toilet. Ambulation: Distance: 20 feet x 2 Ambulation Assistance: Minimal assist Device: FWW Gait Analysis: Trunk Foward flexion Step length Right impaired and Left impaired Weight shifting Right impaired and Left impaired Gait pattern step to Shannan Decreased shannan Clinical Presentation and Hemodynamics: Vital signs stable per monitor; No apparent distress during session Orthostatic vitals: Supine: 102/57, HR 104, Seated: 103/51, HR 67 and Standin/54, HR 55 [facility] AM-PAC 6 Clicks Basic Mobility Inpatient Short Form Please check the box that reflects your (the patient s) best answer to each question. How much help from another person do you currently need... (If the patient hasn't done an activity recently, how much help from another person do you think he/she would need if he/she tried?) Total Total A 1 point A Lot Max/Mod A 2 points A Little Min/Contact/S 3 points None Mod I / Ind 4 points Turning from your back to your side while in a flat bed without using bedrails? x Moving from lying on your back to sitting on the side of a flat bed without using bedrails? x Moving to and from a bed to a chair (including a wheelchair)? x Standing up from a chair using your arms (e.g.,wheelchair, or bedside chair)? x To walk in hospital room? x Climbing 3 - 5 steps with a railing? x Raw Score: 14 CMS 0-100% Score: 61.29% impaired CMS Modifier: CL Education: Education provided regarding Role of Physical Therapy; Benefits of gradually increasing activity level to promote improved tolerance for activity; Risks of immobility; Importance of participation in therapy treatment sessions; Safety awareness; Discharge recommendations. TREATMENT PROVIDED THIS SESSION: Patient has been educated on: Complications from immobility and benefits from activity progression. Bed mobilty with cues for hand placement and technique Transfer training with cues for hand placement and anterior trunk translation, cues and facilitation for controlling descent into sitting Gait training with fww with cues for using UE support of walker for LE weakness (knees buckling), assist for walker management Breathing modifications to include pursed lip breathing, deep breathing Exercise program to improve functional activity and DVT prevention with BLE exercises in sitting Postural awareness/positioning to improve chest excursion The importance of activity progression and to limit walking with nursing due to LEs buckling, recommend BSC/chair transfers only Home safety with emphasis on reducing fall hazards and need for rehab at d/c All questions answered. Pt verbalizes understanding. Patient left in bed with all needs in reach, BLE elevated, bed alarm on . ASSESSMENT: PT Examination demonstrates the following impairments: Pain Bed mobility is Impaired Transfers are Impaired Ambulation is Impaired Stair management is Impaired Balance is Impaired Safety awareness is Impaired Edema Strength is Impaired Due to Challenges with discharge environment, Limited support, Medical comorbidities and Pain, Decreased Endurance , monitor vitals (hypotensive), edema, decreased skin integrity, patient s current clinical presentation is: Stable / Uncomplicated 0 personal factors/comorbidities, 1-2 examination findings Evolving 1-2 personal factors/comorbidities, 3 or more examination findings x Unstable / Unpredictable 3 or 4 personal factors/comorbidities, 4 or more examination findings PT Diagnosis: Musculoskeletal: Impaired Muscle Performance Neuromuscular: Primary prevention / risk reduction for loss of balance and falling Prognosis to achieve goals: Good PLAN: Frequency/Duration: 7 sessions to be completed by 10/26/2020 Future treatment sessions to address: Therapeutic Exercise, Functional Mobility Training, Bed Mobility Training, Transfer Training, Gait Training, Stair Training, Equipment assessment, Home program, Neuromuscular re-education and Patient / Caregiver education Communication of PT Plan: Risks and Benefits of PT were discussed with: Patient and Patient able to verbalize understanding PT Plan of Care was agreed upon by: Patient Communication of PT Plan: Nurse notified and Discharge planning team notified PT Goals (to be achieved by time of discharge): Mobility Goals Rolling STG: Modified independence Supine <> Sit STG: Modified independence Transfer Sit <> Stand STG: Supervision Ambulate assistance STG: Modified independence Ambulation Distance ST feet Ambulation Device STG: FWW Steps STG: Supervision Steps Device STG: FWW Number of Steps ST Therapeutic Exercise Goal Therapeutic exercise program Y/N?: Yes Therapeutic Exercise Program: For LE's;For improved activity tolerance;8-10 reps;Supervision LTG Ambulation Distance: 100 feet LTG Ambulation Device : FWW LTG Ambulation level of assist: Modified independent All of the above goals are written to increase functional independence to allow for safe return to prior living situation. Thank you for allowing me to participate in the care of Hanna Nelson. Please contact me with any questions. This information is eligibility services representative of Hanna Nelson's current therapy status. If Hanna Nelson discharges prior to further therapy intervention, this information is to serve as the discharge summary from physical therapy. 10/16/2020, 12:35 PM ACUTE OCCUPATIONAL THERAPY EVALUATION Patient Information: Patients Name: Hanna Nelson Date of : 1940 Admitting Diagnosis: Cellulitis [L03.90] OT DISCHARGE RECOMMENDATIONS: OT Recommended at Discharge: Recommend ongoing skilled therapy in the inpatient setting VS home/community environment (pending progress) to address decreased I/ADL performance, functional mobility, activity tolerance, balance, and safety. Recommended Physical Assist and Supervision: Grossly min A for basic ADLs, and frequent supervision Availability of assist recommended at discharge: Patient reports that recommended level of assist at discharge is NOT available (family lives a few hours away). Caregiver Readiness for Discharge: No caregiver present for training. Equipment/Additional Services Recommended at Discharge: none- pt owns all needed equipment Other Consultations Recommended at this Time: PM&R Consult for inpatient rehabilitation Eval Complexity: OT Eval Complexity: Moderate (12061) Therapy Session Information: Referral Date/Order: Last order of OT EVALUATION + TREATMENT was found on 10/16/2020 from Hospital Encounter on 10/15/2020 Order: OT Evaluate and Treat Time In: 823 Time Out: 09 Total Time: (44 mins) Total time-based code treatment time: 34 minutes Pt was accompanied by: son RN, Della informed of evaluation and treatment this date. Bed/Chair alarm was activated at the end of this session: yes Precautions: Medical: Fall risk PATIENT HISTORY: Present Admission: Hanna Nelson is a 80 year old female admitted to [facility] on 10/15/2020 with Cellulitis [L03.90] History of Present Illness: Hanna Nelson is an 80 year old female who has a history of hypertension, diabetis, lumbar radiculopathy, hypothyroidism, diabetic foot ulcer who presents to [facility] s/p fall and complaints of generalized weakness and subjective fevers for ~2 days. The patient states she became lightheaded and lost her balance subsequently falling and hitting the back of her head on the floor. She is on Eliquis but denies losing consciousness. There is no evidence of laceration or abrasion to her head on exam. A CTH without contrast was non-acute. The patient has a chronic right foot diabetic ulcer but has noticed worsening erythema and swelling of the right lower extremity on Saturday. She states she had a fever of ~102F as well. She states that she may have minutely injured her right leg while attempting to sit in her chair sometime on Saturday. The patient also endorses a remote history of MRSA osteomyelitis of the left foot. She was noted to have a low-grade temp (99F) in the ER as well as hypotension. Blood cultures were obtained and the patient was given fluids and started on Vanc and Zosyn. A urinalysis with reflex to culture is pending. The patient had an XR of the right tib/fib which are without evidence of an acute fracture. A venous doppler of the RLE was also obtained and did not show any evidence of VTE/DVT. A CT of the right lower extremity was completed and did not reveal evidence of osteomyelitis but did reveal diffuse edema and dorsal skin thickening. Laboratory work-up reveals some hyponatremia (125) as well as renal insufficiency (sCr 1.5, BUN 48) compared to lab work completed in August of this year. Her lactic acid is noted to be 1.6 and she has a leukocytosis with left shift. She currently denies fever or chills but endorses malaise. She states she has been eating and drinking normally but has noted decreased urine output. She denies CP or SOB. She does state that over the past few days she has had some palpitations. She denies n/v/d. She denies any current urinary complaints. The patient will be admitted for IV antibiotics and fluids. Images/Procedures/Specific Notes: All imaging reviewed as pertinent to admitting diagnoses. Past Medical History: has a past medical history of Arthritis, Back pain, Charcot's arthropathy (2015), COVID-19 (07/26/2020), Diabetes (DX- 1996), Fall (06/30/2017), Hypercholesteremia, Hypothyroid, Irregular heart beat (07/31/2017), Neurogenic claudication due to lumbar spinal stenosis (October 2017), Peripheral neuropathy, Peripheral vascular disease (HC CODE) (2010), and Unspecified essential hypertension. has a past surgical history that includes removal gallbladder (~1970); epidural lumbar transforminal (Left, 03/25/2017); lumbar transforaminal epidural (04/29/2017); caudal epidural block (09/02/2017); other surgical history (Left, 01/24/2015); other surgical history (Right, 10/17/2015); other surgical history (Left, 12/19/2010); echo historical (1987); cardiac stress tst,complete (08/01/2017); other surgical history (2009); lig/trnsxj flp tube abdl/vag appr uni/bi; laminectomy decompression posterior 3 level (N/A, 10/22/2017); and wound vac application/change (N/A, 10/22/2017). OCCUPATIONAL PROFILE: Support System: Patient lives Alone. Pt has limited supervision and physical assistance available. 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 Fall History: Pt reports 1 falls in the last 6 months, reason for admission. Housing Environment: Number of floors: 2 (pt says on 1) Number of entry steps: 1 Bathroom setup: walk-in shower Home Equipment: cane, FWW, tall commode, shower grab bars SUBJECTIVE: Patient and/or Caregiver States: "I drive up to my sons in [place] a lot and stay with them" Patient and/or Caregiver Goal: Return to OF Pain Rating/Location: 2/10, in headache and RLE; Action Taken to Address Pain: Repositioned, Education, Diversion and Pain medication requested OBJECTIVE: Performance Skills & Client Factors: Motor & Praxis Skills: UE ROM: BUE WFL as observed with functional tasks UE MMT: BUE at least 4/5 as observed with functional tasks Coordination/Dexterity: WFL Balance: Sitting balance Fair +: Pt is able to move within base of support without loss of balance. Standing balance Fair +: Pt is able to move within base of support without loss of balance, with or without use of assistive device. Activity Tolerance: Fair- required 1 rest break during functional activity Sensory Perceptual Skills: WFL Cognitive Skills: Level of consciousness:Alert Orientation:Alert and oriented X 4 Command following:WFL for ADL Behavior:Cooperative Safety awareness:WFL for ADL Ability to attend:WFL for ADL Memory:WFL for ADL Communication & Social Skills: WFL Pt able to verbalize wants and needs to appropriate staff. Hemodynamics: WNL Activities of Daily Living (ADLs): ACTIVITY CURRENT ASSIST LEVEL Skilled ADL Treatment Provided During Evaluation Eating/Feeding Grooming Current Status: Supervision(brush teeth, wash hands standing at sink) Min cues for FWW placement at sink. Bathing Upper Body Dressing Current Status: Minimal assist(don gown over back to simulate coat) Min assist for line management Lower Body Dressing Current Status: Supervision;Maximal assist(max A don slippers, S to doff) Don slippers EOB. Supervision to doff slippers in long sit. Toileting Current Status: Supervision(urinate seated on commode in BR) Supervision for clothing management (gown and underwear) and seated front linda care. Toilet Transfer Current Status: Minimal assist(sit<>Stand from commode in BR) Min cues for use of grab bar for increased ease of transfer. Bed, Chair, Wheelchair Transfer Current Status: Minimal assist(supine<>sit, sit<>stand, mobility w/ FWW) See Below. Additional Skilled Treatment Provided During Evaluation: Treatment Provided This Session: Education provided regarding: role of Occupational Therapy, plan of care, discharge recommendations, importance of participation in ADL tasks as independently as able to maintain/improve functional independence, and importance of participation in therapy treatment sessions. Self-Care x2 Facilitated participation in above-mentioned ADLs with emphasis on promoting increased activity tolerance, functional independence, functional strength, and safety. Facilitated independence with I/ADLs, ADL transfers, and functional mobility through provision of instruction in adaptive techniques and safety; provided instruction in techniques to maximize independence with ADLs. Engaged pt in performance of basic ADL tasks to promote increased participation in environment and familiar activities with goal of returning to previous functional level. Educated on importance of OOB/EOB activities to promote functional independence with ADLs. Educated pt on energy conservation techniques (deep breathing, sitting during prolonged standing activities, and activity simplification/modification) to maximize occupational performance ~pt verbalized understanding Segmented verbal cues provided for posture, pacing, and pursed-lip breathing to maximize patient performance Therapeutic Activity x1 Engaged patient in performance of bed mobility and ADL transfers to increase strength and activity tolerance in preparation for ADLs. Therapist guided pt through supine<>sit transfer with min assist, cues for optimal technique w/ HOB elevated. Therapist guided pt through sit<>Stand transfer in prep for future LB dressing with min assist, cues for hand placement on bed/FWW for increased safety. Facilitated functional mobility within room (bed<>bathroom) to simulate return to house hold distances in prep for future ADLs with FWW and min assist, cues for optimal FWW management. Facilitated increased dynamic standing balance in prep for ADL task with close supervision assist. Pt stood for ~5 minutes. Educated on safety awareness to decrease risk of falls and activity promotion to increase/maintain independence with ADLs. [facility] AM-PAC 6 clicks V.2 Daily Activity Inpatient Short Form Please check the box that best reflects your best answer to each question. How much help from another person do you currently need (If the patient hasn't done an activity recently, how much help from another person do you think he/she would need if he/she tried?) Total A Lot A Little None 1. Putting on and taking off regular lower body clothing? []1 [x]2 []3 []4 2. Bathing (including washing, rinsing, drying)? []1 [x]2 []3 []4 3. Toileting, which includes using toilet, bedpan or urinal? []1 []2 [x]3 []4 4. Putting on and taking off regular upper body clothing? []1 []2 [x]3 []4 5. Taking care of personal grooming such as brushing teeth? []1 []2 [x]3 []4 6. Eating Meals? []1 []2 []3 [x]4 ASSESSMENT: The impairments found during the evaluation could put patient at risk for: Decreased quality of life Decreased functional independence Impaired ADL/IADL performance Decreased activity tolerance Decreased functional participation Impaired functional balance, leading to falls Barriers to Discharge: Limited support, Medical comorbidities and Pain PLAN: Frequency, Duration, Pertinent Information: 4 sessions, 10/26 Future Treatment Sessions Could Address: ADL retraining Therapeutic Activities IADL retraining Patient / caregiver education / training Energy conservation instruction Home safety / environment recommendations Upper extremity program Neuromuscular re-education Communication of OT Plan: The risks and benefits of OT were discussed, and the OT plan of care was agreed upon by: Patient and Family SHORT/MENU PLANNER GOALS (to be achieved by time of discharge): STG: Pt to complete grooming;with modified independence STG: Pt to complete upper body dressing with;Modified independence STG: Pt to complete lower body dressing with;Supervision STG: Pt to complete toileting with;Modified independence STG: Pt to complete toilet transfer with;Modified independence STG: Pt to complete bed, chair, wheelchair transfer with;Modified independence STG: Pt will incorporate 2 energy conservations techniques with min cues during ADLs/mobility LTG: Pt will complete dynamic standing task w/ mod I for 10+ mins to improve balance and activity tolerance for ADLs All of the above goals are written to increase functional independence to allow for safe return to prior living situation. This information is eligibility services representative of Hanna Nelson's current therapy status. If Hanna Nelson discharges prior to further therapy intervention, this information is to serve as the discharge summary from occupational therapy. Thank you for allowing me to participate in the care of Hanna Nelson. Please contact me with via secure chat any questions. Signature: MARIN Dick/Jaz, 10/16/2020, 9:16 AM A signature indicates the referring physician gives his/her approval of the Occupational Therapy Plan of Care for Hanna Nelson. documented in this encounter Care Teams (unrecognized sec tion and content) Php Lamp Developer Relationship Specialty Start Date End Date Lisy Pace MD [address] [place] [address] PCP - General Family Practice 06/17/19 Zandra Phan RN 07/07/09 Jalil [place], [place] [address] 07/07/09 Samuel Roca, PT Physical Therapy 08/17/11 Martita Navarro, MA-Cred 02/11/12 Php Lamp Developer Relationship Specialty Start Date End Date Lisy Pace MD [address] [place] [address] PCP - General Family Practice 06/17/19 Zandra Phan, RN 07/07/09 Jalil [place], [place] [address] 07/07/09 Samuel Roca, PT Physical Therapy 08/17/11 Martita Navarro, MA-Cred 02/11/12 Php Lamp Developer Relationship Specialty Start Date End Date Lisy Pace MD [address] [place] [address] PCP - General Family Practice 06/17/19 Zandra Phan RN 07/07/09 Jalil [place]vas, [place] [address] 07/07/09 Samuel Roca, PT Physical Therapy 08/17/11 Martita Navarro, MA-Cred 02/11/12 Php Lamp Developer Relationship Specialty Start Date End Date Lisy Pace MD [address] [place] [address] PCP - General Family Practice 06/17/19 Zandra Phan, RN 07/07/09 Jalil C[place]vas, [place] [address] 07/07/09 Samuel Roca, PT Physical Therapy 08/17/11 Martita Navarro, MA-Cred 02/11/12 Php Lamp Developer Relationship Specialty Start Date End Date Lisy Pace MD [address] [place] [address] PCP - General [facility] Practice 06/17/19 Zandra Phan, RN 07/07/09 Jalil Cuevas, [place] [address] 07/07/09 Samuel Roca, PT Physical Therapy 08/17/11 Martita Navarro, MA-Cred 02/11/12 Php Lamp Developer Relationship Specialty Start Date End Date Lisy Pace MD [address] [place] [address] PCP - General [facility] Practice 06/17/19 Zandra Phan, RN 07/07/09 Jalil [place], [place] [address] 07/07/09 Samuel Roca, PT Physical Therapy 08/17/11 Martita Navarro, MA-Cred 02/11/12 Php Lamp Developer Relationship Specialty Start Date End Date Lisy Pace MD [address] [place] [address] PCP - General Family Practice 06/17/19 Zandra Phan RN 07/07/09 Jalil Cuevas, [place] [address] 07/07/09 Samuel Roca, PT Physical Therapy 08/17/11 Martita Navarro, MA-Cred 02/11/12 Php Lamp Developer Relationship Specialty Start Date End Date Lisy Pace MD [address] [place] [address] PCP - General Family Practice 06/17/19 Zandra Phan RN 07/07/09 Jalil Cuevas, [place] [address] 07/07/09 Samuel Roca, PT Physical Therapy 08/17/11 Martita Navarro, MA-Cred 02/11/12 Php Lamp Developer Relationship Specialty Start Date End Date Lisy Pace MD [address] [place] [address] PCP - General Family Practice 06/17/19 Zandra Phan, KENNA 07/07/09 Jalil Cuevas, [place] [address] 07/07/09 Samuel Roca, PT Physical Therapy 08/17/11 Martita Navarro, MA-Cred 02/11/12 Php Lamp Developer Relationship Specialty Start Date End Date Lisy Pace MD [address] [place] [address] PCP - [facility] Practice 06/17/19 Zandra Phan RN 07/07/09 Jalil Cuevas, [place] [address] 07/07/09 Samuel Roca, PT Physical Therapy 08/17/11 Martita Navarro, MA-Cred 02/11/12 Php Lamp Developer Relationship Specialty Start Date End Date Lisy Pace MD [address] [place] [address] PCP - General [facility] Practice 06/17/19 Zandra Phan RN 07/07/09 Jalil Cuevas, [place] [address] 07/07/09 Samuel Roca, PT Physical Therapy 08/17/11 Martita Navarro, MA-Cred 02/11/12 Php Lamp Developer Relationship Specialty Start Date End Date Lisy Pace MD [address] [place] [address] PCP - General Family Practice 06/17/19 Zandra Phan RN 07/07/09 Jalil Cuevas, [place] [address] 07/07/09 Samuel Roca, PT Physical Therapy 08/17/11 Martita Navarro, MA-Cred 02/11/12 Php Lamp Developer Relationship Specialty Start Date End Date Lisy Pace MD [address] [place] [address] PCP - General Family Practice 06/17/19 Zandra Phan RN 07/07/09 Jalil Cuevas, [place] [address] 07/07/09 Samuel Roca, PT Physical Therapy 08/17/11 Martita Navarro, MA-Cred 02/11/12 Php Lamp Developer Relationship Specialty Start Date End Date iLsy Pace MD [address] [place] [address] PCP - General [facility] Practice 06/17/19 Zandra Phan RN 07/07/09 Jalil Cuevas, [place] [address] 07/07/09 Samuel Roca, PT Physical Therapy 08/17/11 Martita Navarro, MA-Cred 02/11/12 Php Lamp Developer Relationship Specialty Start Date End Date Lisy Pace MD [address] [place] [address] PCP - General Family Practice 06/17/19 Zandra Phan RN 07/07/09 Jalil Cuevas, [place] [address] 07/07/09 Samuel Roca, PT Physical Therapy 08/17/11 Martita Navarro, MA-Cred 02/11/12 Php Lamp Developer Relationship Specialty Start Date End Date Lisy Pace MD [address] [place] [address] PCP - General Family Practice 06/17/19 Zandra Phan, KENNA 07/07/09 Jalil Cuevas, [place] [address] 07/07/09 Samuel Roca, PT Physical Therapy 08/17/11 Martita Navarro, MA-Cred 02/11/12 Php Lamp Developer Relationship Specialty Start Date End Date Lisy Pace MD [address] [place] [address] PCP - General Family Practice 06/17/19 Zandra Phan, KENNA 07/07/09 Jalil Cuevas, [place] [address] 07/07/09 Samuel Roca, PT Physical Therapy 08/17/11 Martita Navarro, MA-Cred 02/11/12 Php Lamp Developer Relationship Specialty Start Date End Date Lisy Pace MD [address] [place] [address] PCP - General Family Practice 06/17/19 Zandra Phan RN 07/07/09 Jalil Cuevas, [place] [address] 07/07/09 Samuel Roca, PT Physical Therapy 08/17/11 Martita Navarro, MA-Cred 02/11/12 Php Lamp Developer Relationship Specialty Start Date End Date Lisy Pace MD [address] [place] [address] PCP - General Family Practice 06/17/19 Zandra Phan RN 07/07/09 Jalil Cuevas, [place] [address] 07/07/09 Samuel Roca, PT Physical Therapy 08/17/11 Martita Navarro, MA-Cred 02/11/12 Php Lamp Developer Relationship Specialty Start Date End Date Lisy Pace MD [address] [place] [address] PCP - General Family Practice 06/17/19 Zandra Phan RN 07/07/09 Jalil Cuevas, [place] [address] 07/07/09 Samuel Roca, PT Physical Therapy 08/17/11 Martita Navarro, MA-Cred 02/11/12 Php Lamp Developer Relationship Specialty Start Date End Date Lisy Pace MD [address] [place] [address] PCP - General Family Practice 06/17/19 Zandra Phan RN 07/07/09 Jalil Cuevas, [place] [address] 07/07/09 Samuel Roca, PT Physical Therapy 08/17/11 Martita Navarro, MA-Cred 02/11/12 Php Lamp Developer Relationship Specialty Start Date End Date Lisy Pace MD [address] [place] [address] PCP - General Family Practice 06/17/19 Zandra Phan RN 07/07/09 Jalil Cuevas, [place] [address] 07/07/09 Samuel Roca, PT Physical Therapy 08/17/11 Martita Navaror, MA-Cred 02/11/12 Php Lamp Developer Relationship Specialty Start Date End Date Lisy Pace MD [address] [place] [address] PCP - General Family Practice 06/17/19 Zandra Phan RN 07/07/09 Jalil Cuevas, [place] [address] 07/07/09 Samuel Roca, PT Physical Therapy 08/17/11 Martita Navarro, MA-Cred 02/11/12 Php Lamp Developer Relationship Specialty Start Date End Date Lisy Pace MD [address] [place] [address] PCP - General Family Practice 06/17/19 Zandra Phan RN 07/07/09 [place] [address] 07/07/09 Samuel Roca, PT Physical Therapy 08/17/11 Martita Navarro MA-Cred 02/11/12 Php Lamp Developer Relationship Specialty Start Date End Date MarcelaDorothy castro [address] [place] [phone] PCP - General Family Medicine 10/14/24 Php Lamp Developer Relationship Specialty Start Date End Date MarcelaDorothy castro [address], [phone] PCP - General Family Medicine 10/14/24 Php Lamp Developer Relationship Specialty Start Date End Date MarcelaDorothy castro [address] [place] [address] PCP - General Family Medicine 10/14/24 Php Lamp Developer Relationship Specialty Start Date End Date MarcelaDorothy castro [address] [place] [phone] PCP - General Family Medicine 10/14/24 Php Lamp Developer Relationship Specialty Start Date End Date MarcelaDorothy castro [address] [place] [phone] PCP - General Family Medicine 10/14/24 Php Lamp Developer Relationship Specialty Start Date End Date MarcelaDorothy castro [address], [phone] PCP - General Family Medicine 10/14/24 Php Lamp Developer Relationship Specialty Start Date End Date Dorothy Medrano [address] [place] [phone] PCP - General Family Medicine 10/14/24 Php Lamp Developer Relationship Specialty Start Date End Date Dorothy Medrano [address] [place] [phone] PCP - General Family Medicine 10/14/24 Php Lamp Developer Relationship Specialty Start Date End Date Dorothy Medrano [address] [place] [phone] PCP - General Family Medicine 10/14/24 Php Lamp Developer Relationship Specialty Start Date End Date Dorothy Medrano [address] [place] [phone] PCP - General Family Medicine 10/14/24 Php Lamp Developer Relationship Specialty Start Date End Date Dorothy [place] [address] [place] [phone] PCP - General Family Medicine 10/14/24 Php Lamp Developer Relationship Specialty Start Date End Date Dorothy Medrano [address] [place] [phone] PCP - General Family Medicine 10/14/24 Php Lamp Developer Relationship Specialty Start Date End Date [place] [address] [address] [place] [phone] PCP - General Family Medicine 10/14/24 Php Lamp Developer Relationship Specialty Start Date End Date Dorothy Medrano [address] [place] [phone] PCP - General Family Medicine 10/14/24 Php Lamp Developer Relationship Specialty Start Date End Date Dorothy Medrano [address] [place] [phone] PCP - General Family Medicine 10/14/24 Php Lamp Developer Relationship Specialty Start Date End Date Dorothy Medrano [address] [place] [phone] PCP - General Family Medicine 10/14/24 Php Lamp Developer Relationship Specialty Start Date End Date Dorothy Medrano [address] [place], [phone] PCP - General Family Medicine 10/14/24 Php Lamp Developer Relationship Specialty Start Date End Date Dorothy Medrano [address] [place], [phone] PCP - General Family Medicine 10/14/24 Php Lamp Developer Relationship Specialty Start Date End Date Dorothy Medrano [address] [place], [phone] PCP - General Family Medicine 10/14/24 Php Lamp Developer Relationship Specialty Start Date End Date [place] [address] [phone] PCP - General Family Medicine 10/14/24 INFORMATION SOURCE (unrecogn ized section and content) DATE CREATED AUTHOR 10/01/2021 [facility] Ce neli Greene DATE CREATED AUTHOR AUTHOR'S ORGANIZ ATION 03/22/2024 [facility] DATE CREATED AUTHOR AUTHOR'S ORGANIZ ATION 05/24/2024 Provider Locatio ns DATE CREATED AUTHOR AUTHOR'S ORGANIZ ATION 05/25/2024 [employer] DATE CREATED AUTHOR AUTHOR'S ORGANIZ ATION 04/27/2025 [facility] DATE CREATED AUTHOR AUTHOR'S ORGANIZ ATION 05/01/2025 [facility] Source Comments (unrecognize d section and content) In the event this informatio n is protected by the Federal Confidentiality of Alcohol and Drug Abuse Patient Records regulations: The Federal rules restrict any use of the information to criminally investigate or prosecute any alcohol or drug abuse patient.[facility] the event this information is protected by the Federal Confidentiality of Alcohol and Drug Abuse Patient Records regulations: The Federal rules restrict any use of the information to criminally investigate or prosecute any alcohol or drug abuse patient[facility] Scheduled Active and Recently Administ ered Medications (unrecognized section and content) Medication Order 11/10/2023 11/11/2023 11/12/2023 amLODIPine (NORVASC) tablet 5 mg 5 mg, Oral, DAILY, First dose on Sat11/11/23 at 0900, Until Discontinued 0930 (Given - Provider: Lidia Lundy RN) 0909 (Given - Provider: Gin Kay RN) apixaban (ELIQUIS) tablet 5 mg 5 mg, Oral, *TWO TIMES A DAY, First dose on Sat11/10/23 at 2100, Until Discontinued, Indications: atrial fibrillation 2037 (Given - Provider: Estevan Oswald RN) 930 (Given - Provider: Lidia Lundy, KENNA)2142 (Given - Provider: Bridget Downing RN) 09 (Given - Provider: Gin Kay, RN)2100 (Due) atenoloL (TENORMIN) tablet 50 mg 50 mg, Oral, TWO TIMES A DAY, First dose on Sat11/10/23 at 2000, Until Discontinued 2037 (Given - Provider: Estevan Oswald RN) 0931 (Given - Provider: Lidia Lundy, KENNA)170 (Given - Provider: Lidia Lundy, KENNA) 09 (Given - Provider: Gin Kay, KENNA)170 (Due) AtorvaSTATin (LIPITOR) tablet 40 mg 40 mg, Oral, DAILY, First dose on Sat11/11/23 at 0900, Until Discontinued 929 (Given - Provider: Lidia Lundy RN) 908 (Given - Provider: Gin Kay RN) ceFAZolin (ANCEF) 2 g in Dextrose 50 ml IVPB (PREMIX) 2 g, Intravenous, at 100 mL/hr, Administer over 30 Minutes, EVERY 8 HOURS, First dose on Sat11/11/23 at 2100, Until Discontinued, Indications: CELLULITIS / SSTI 2140 (New Bag - Provider: Bridget Downing RN) 06 (New Bag - Provider: Bridget Downing RN)131 (New Bag - Provider: Gin Kay, KENNA)2200 (Due) cefepime (MAXIPIME) 2 g in D5W 50 ml (PREMIX) (CANCELED) 2 g, Intravenous, at 12.5 mL/hr, Administer over 240 Minutes, EVERY 12 HOURS, First dose on Sat11/11/23 at 0900, Until Discontinued, Indications: CELLULITIS / SSTI 931 (New Bag - Provider: Lidia Lundy RN) cefTRIAXone (ROCEPHIN) 2 g in D5W 50 ml IVPB (PREMIX) (COMPLETED) 2 g, Intravenous, at 100 mL/hr, Administer over 30 Minutes, NOW, 1 dose, On Sat11/10/23 at 1730, Indications: CELLULITIS / SSTI, SEPSIS SYNDROME 1806 (New Bag - Provider: Pinky Martinez, RN)1852 (Stopped - Provider: Pinky Martinez RN) doxycycline MONOhydrate (MONODOX) capsule 100 mg 100 mg, Oral, EVERY 12 HOURS, First dose on Sat11/11/23 at 1415, Until Discontinued, Indications: CELLULITIS / SSTI 1323 (Given - Provider: Lidia Lundy RN)2142 (Given - Provider: Bridget Downing RN) 908 (Given - Provider: Gin Kay, KENNA)2099 (Due) fenofibrate nanocrystallized (TRICOR) tablet 145 mg 145 mg, Oral, DAILY, First dose on Sat11/11/23 at 0900, Until Discontinued 930 (Given - Provider: Lidia Lundy RN) 908 (Given - Provider: Gin Kay RN) gabapentin (NEURONTIN) capsule 300 mg 300 mg, Oral, *TWO TIMES A DAY, First dose on Sat11/10/23 at 2100, Until Discontinued 2037 (Given - Provider: Estevan Oswald RN) 930 (Given - Provider: Lidia Lundy RN)2142 (Given - Provider: Bridget Downing RN) 908 (Given - Provider: Gin Kay RN)2099 (Due) insulin glargine (LANTUS) Subcutaneous INJ 20 Units (CANCELED) 20 Units, Subcutaneous, DAILY, First dose on 11/10/23 at 1910, Until Discontinued 2037 (Given - Provider: Estevan Oswald RN) insulin glargine (LANTUS) Subcutaneous INJ 25 Units 25 Units, Subcutaneous, DAILY, First dose (after last modification) on Sat11/11/23 at 2100, Until Discontinued 2216 (Given - Provider: Bridget Downing RN) 2099 (Due) insulin lispro (HumaLOG) injection 0-9 Units 0-9 Units, Subcutaneous, THREE TIMES A DAY WITH MEALS, HS & 0200, First dose on 11/10/23 at 2200, Until Discontinued 2322 (Not Given - Provider: Estevan Oswald RN - Reason: Other (add comment) - Comment: one time order d/t BGL [id number]) 0314 (Given - Provider: Estevan Oswald RN)0931 (Given - Provider: Lidia Lundy, KENNA)1323 (Given - Provider: Lidia Lundy, KENNA)1700 (Given - Provider: Liida Lundy RN)2144 (Given - Provider: Bridget Downing RN) 0233 (Not Given - Provider: Bridget Downing RN - Reason: Other (add comment) - Comment: Other amount given per Dr Caal order)0908 (Given - Provider: Gin Kay RN)1315 (Given - Provider: Gin Kay, KENNA)1700 (Due)2200 (Due) insulin lispro (HumaLOG) injection 11 Units (COMPLETED) 11 Units, Subcutaneous, ONCE, 1 dose, On Sat11/10/23 at 2325 2326 (Given - Provider: Estevan Oswald RN) insulin lispro (HumaLOG) injection 20 Units (COMPLETED) 20 Units, Subcutaneous, ONCE, 1 dose, On Sat11/12/23 at 0240 0232 (Given - Provider: Bridget Downing RN) insulin lispro (HumaLOG) injection 3 Units 3 Units, Subcutaneous, THREE TIMES A DAY WITH MEALS, First dose on Sat11/11/23 at 1700, Until Discontinued 170 (Given - Provider: Lidia Lundy RN) 0910 (Given - Provider: Gin Kay RN)1316 (Given - Provider: Gin Kay RN)1700 (Due) levothyroxine (SYNTHROID) tablet 112 mcg 112 mcg, Oral, DAILY BEFORE BREAKFAST, First dose on Sat11/11/23 at 0600, Until Discontinued 06 (Given - Provider: Estevan Oswald RN) 0555 (Given - Provider: Bridget Downing, KENNA) multivitamin with folic acid (THERAGRAN) 400 mcg tablet 1 Tab 1 Tab, Oral, DAILY, First dose on Sat11/11/23 at 0900, Until Discontinued 930 (Given - Provider: Lidia Lundy RN) 0909 (Given - Provider: Gin Kay RN) oxybutynin (DITROPAN XL) SR-tablet 10 mg 10 mg, Oral, DAILY, First dose on Sat11/11/23 at 0900, Until Discontinued 930 (Given - Provider: Lidia Lundy, RN) 908 (Given - Provider: Gin Kay, RN) saline flush IV Push, EVERY 12 HOURS, First dose on 11/10/23 at 2100, Until Discontinued 2036 (Given - Provider: Estevan Oswald RN) 934 (Given - Provider: Lidia Lundy, RN)2204 (Given - Provider: Bridget Downing, RN) 908 (Given - Provider: Gin Kay, RN)2100 (Due) vancomycin (VANCOCIN) 1,500 mg in NaCl 0.9% 250 mL IVPB (COMPLETED) 1,500 mg (rounded from 1,395 mg = 15 mg/kg/dose 93 kg), Intravenous, at 166.67 mL/hr, Administer over 90 Minutes, ONCE, 1 dose, On 11/10/23 at 1910, Indications: CELLULITIS / SSTI 2035 (New Bag - Provider: Estevan Oswald RN) PRN Medication Order 11/10/2023 11/11/2023 11/12/2023 acetaminophen (TYLENOL) suppository 650 mg(Linked Group 1) 650 mg, Rectal, EVERY 4 HOURS PRN, Starting on 11/10/23 at 1900, Until Discontinued, other, for mild pain/temp of 101.5 F or 100.5 F for immunocompromised patients acetaminophen (TYLENOL) tablet 650 mg(Linked Group 1) 650 mg, Oral, EVERY 4 HOURS PRN, Starting on 11/10/23 at 1900, Until Discontinued, other, for mild pain/temp of 101.5 F or 100.5 F for immunocompromised patients bisacodyL (DULCOLAX) enteric-coated tablet 5 mg(Linked Group 2) 5 mg, Oral, DAILY PRN, Starting on 11/10/23 at 1900, Until Discontinued, Constipation bisacodyL (DULCOLAX) suppository 10 mg(Linked Group 2) 10 mg, Rectal, DAILY PRN, Starting on 11/10/23 at 1900, Until Discontinued, Constipation dextrose (GLUTOSE) gel 15 g Carb 15 g Carb, Oral, PRN- NEEDED, Starting on 11/10/23 at 1901, Until Discontinued, other, hypoglycemia dextrose 50 % in water (D50W) intravenous syringe 5-12.5 g 5-12.5 g, IV Push, PRN- NEEDED, Starting on 11/10/23 at 1901, Until Discontinued, other, hypoglycemia glucagon injection 1 mg 1 mg, Subcutaneous, PRN- NEEDED, Starting on 11/10/23 at 1901, Until Discontinued, hypoglycemia HYDROcodone-acetaminophen (NORCO) 5-325 mg tablet 1 Tab 1 Tab, Oral, EVERY 8 HOURS PRN, Starting on 11/10/23 at 1901, Until Discontinued, Moderate Pain NaCl 0.9% 1,000 mL 1,000 mL, Intravenous, CONTINUOUS PRN, Starting on 11/10/23 at 1900, Until Discontinued, at 10 mL/hr, other 2140 (New Bag - Provider: Bridget Downing RN) 0903 (Stopped - Provider: Gin Kay RN) ondansetron (ZOFRAN ODT) RAPID DISSOLVING tablet 4 mg(Linked Group 3) 4 mg, Oral, EVERY 6 HOURS PRN, Starting on 11/10/23 at 1900, Until Discontinued, Nausea/Vomiting ondansetron (ZOFRAN) injection 4 mg(Linked Group 3) 4 mg, IV Push, EVERY 6 HOURS PRN, Starting on 11/10/23 at 1900, Until Discontinued, Nausea/Vomiting saline flush IV Push, PRN- NEEDED, Starting on 11/10/23 at 1900, Until Discontinued Linked Groups Order Group 1: acetaminophen (TYLENOL) tablet 650 mgJump to med 650 mg, Oral, EVERY 4 HOURS PRN, Starting on 11/10/23 at 1900, Until Discontinued, other, for mild pain/temp of 101.5 F or 100.5 F for immunocompromised patients Or acetaminophen (TYLENOL) suppository 650 mgJump to med 650 mg, Rectal, EVERY 4 HOURS PRN, Starting on 11/10/23 at 1900, Until Discontinued, other, for mild pain/temp of 101.5 F or 100.5 F for immunocompromised patients Group 2: bisacodyL (DULCOLAX) enteric-coated tablet 5 mgJump to med 5 mg, Oral, DAILY PRN, Starting on 11/10/23 at 1900, Until Discontinued, Constipation Or bisacodyL (DULCOLAX) suppository 10 mgJump to med 10 mg, Rectal, DAILY PRN, Starting on 11/10/23 at 1900, Until Discontinued, Constipation Group 3: ondansetron (ZOFRAN ODT) RAPID DISSOLVING tablet 4 mgJump to med 4 mg, Oral, EVERY 6 HOURS PRN, Starting on 11/10/23 at 1900, Until Discontinued, Nausea/Vomiting Or ondansetron (ZOFRAN) injection 4 mgJump to med 4 mg, IV Push, EVERY 6 HOURS PRN, Starting on Sat11/10/23 at 1900, Until Discontinued, Nausea/Vomiting Scheduled Medication Order 09/15/2024 09/16/2024 09/17/2024 insulin glargine (Lantus) injection 5 Units (COMPLETED) 5 Units, SubCUTAneous, Once, On Renee 09/17/24 at 1530, For 1 dose 1533 (Given - Provid er: Kiesha Pleitez RN) insulin regular (HumuLIN R,NovoLIN R) injection 9 Units (COMPLETED) 9 Units (rounded from 9.07 Units = 0.1 Units/kg 90.7 kg), SubCUTAneous, Once, On Renee 09/17/24 at 1310, For 1 dose 1316 (Given - Provid er: Keisha Pleitez RN) lactated ringers bolus 1,000 mL (COMPLETED) 1,000 mL, IntraVENous, at 500 mL/hr, Administer over 2 Hours, Once, On Renee 09/17/24 at 1310, For 1 dose 1316 (New Bag - Prov ider: Keisha Pleitez RN)1500 (Stopped - Provider: Keisha Pleitez RN) sodium chloride 0.9 % bolus 1,000 mL (COMPLETED) 1,000 mL, IntraVENous, at 1,000 mL/hr, Administer over 1 Hours, Once, On Renee 09/17/24 at 1220, For 1 dose 1231 (New Bag - Prov ider: Keisha Pleitez RN)1315 (Stopped - Provider: Keisha Pleitez RN) PRN Medication Order 09/15/2024 09/16/2024 09/17/2024 dextrose 5 % infusion 100 mL/hr, IntraVENous, PRN, Blood sugar less than 70mg/dL, Starting on Renee 09/17/24 at 1309, Start infusion following administration of dextrose 50% or glucagon. dextrose 50 % solution 12.5 g 12.5 g, IntraVENous, PRN, low blood sugar, Blood glucose less than 70 mg/dL and patient NOT ALERT or NPO., Starting on Renee 09/17/24 at 1309, If patient does not respond within 5 minutes, repeat dose x1. Start D5W at 100 mL/hour until ordering provider can be reached. Repeat blood glucose in 15 minutes. If blood glucose is less than 70 mg/dL, repeat treatment and recheck blood glucose in 15 minutes x2. If using Glucostabilizer, dose as instructed per system. glucagon (human recombinant) injection 1 mg 1 mg, IntraMUSCular, PRN, low blood sugar, Blood glucose less than 70 mg/dL and patient NOT ALERT or NPO and does not have IV access., Starting on Renee 09/17/24 at 1309, After administration, attempt intravenous access and start D5W at 100 mL/hr. Repeat blood glucose in 15 minutes x2 and notify provider. glucose oral gel 15 g 15 g, Oral, As needed, low blood sugar, Starting on Renee 09/17/24 at 1309, If blood glucose less than 50 mg/dL and patient ALERT and NOT NPO, give 2 tubes glucose gel. If blood glucose less than 70 mg/dL and patient ALERT and NOT NPO, give 1 tube glucose gel. Repeat blood glucose in 15 minutes. If blood glucose is less than 70 mg/dL, repeat treatment and recheck blood glucose in 15 minutes x2 and notify provider. Scheduled Medication Order 09/22/2024 09/23/2024 09/24/2024 amLODIPine (Norvasc) tablet 5 mg 5 mg, Oral, Daily, First dose on Sat09/18/24 at 1855 0907 (Given - Provider: Estiven Kay RN) 0918 (Given - Provider: Sawyer Peoples RN) 09 (Given - Provider: Sawyer Peoples RN) apixaban (Eliquis) tablet 5 mg 5 mg, Oral, 2 times daily, First dose on Sat09/18/24 at 2100, Anticoagulant 0907 (Given - Provider: Estiven Kay RN)2040 (Given - Provider: Celine Claudio RN) 0918 (Given - Provider: Sawyer Peoples RN)2033 (Given - Provider: Celine Claudio RN) 09 (Given - Provider: Sawyer Peoples RN) atenolol (Tenormin) tablet 50 mg 50 mg, Oral, Daily, First dose on Sat09/18/24 at 1855 0907 (Given - Provider: Estiven Kay RN) 0918 (Given - Provider: Sawyer Peoples RN) 09 (Given - Provider: Sawyer Peoples RN) atorvastatin (Lipitor) tablet 40 mg 40 mg, Oral, Daily, First dose on Sat09/18/24 at 1855 0907 (Given - Provider: Estiven Kay RN) 09 (Given - Provider: Sawyer Peoples RN) 908 (Given - Provider: Sawyer Peoples RN) ergocalciferol (Vitamin D2) capsule 1.25 mg 1.25 mg, Oral, Weekly, First dose on Sat09/24/24 at 0900, For 8 doses 09 (Given - Provider: Sawyer Peoples RN) fenofibrate (Triglide) tablet 160 mg 160 mg, Oral, Daily, First dose on Sat09/18/24 at 1855, Substituted for Fenofibrate (Non-Formulary Dose). 09 (Given - Provider: Estiven Kay RN) 917 (Given - Provider: Sawyer Peoples RN) 09 (Given - Provider: Sawyer Peoples RN) gabapentin (Neurontin) capsule 300 mg 300 mg, Oral, 2 times daily, First dose on Sat09/18/24 at 2100 0907 (Given - Provider: Estiven Kay RN)2040 (Given - Provider: Celine Claudio RN) 0918 (Given - Provider: Sawyer Peoples RN)2033 (Given - Provider: Celine Claudio RN) 0909 (Given - Provider: Sawyer Peoples RN) insulin glargine (Lantus) injection 26 Units (CANCELED) 26 Units, SubCUTAneous, Nightly, First dose (after last modification) on Sat09/22/24 at 2100 204 (Given - Provider: Celine Claudio RN) 2033 (Given - Provider: Celine Claudio RN) insulin glargine (Lantus) injection 30 Units 30 Units, SubCUTAneous, Nightly, First dose (after last modification) on Renee 09/24/24 at 2100 insulin lispro (HumaLOG) pen injection 0-12 Units 0-12 Units, SubCUTAneous, 3 times daily with meals, First dose on Sat09/21/24 at 1700, Medium Dose Correction Algorithm Glucose: Dose: LESS than 150 No Insulin 150-199 2 Units 200-249 4 Units 250-299 6 Units 300-349 8 Units 350-400 10 Units Above 400 12 Units 0908 (Given - Provider: Estiven Kay RN)1213 (Given - Provider: Estiven Kay RN)1617 (Given - Provider: Estiven Kay RN) 0919 (Given - Provider: Sawyer Peoples, KENNA)1219 (Given - Provider: Sawyer Peoples, KENNA)1721 (Given - Provider: Sawyer Peoples, RN) 0910 (Given - Provider: Sawyer Peoples, RN)1212 (Given - Provider: Sawyer Peoples, RN)1700 (Canceled Entry - Provider: Automatic Discharge Provider - Comment: Automatically canceled at discontinue of medication order) insulin lispro (HumaLOG) pen injection 10 Units (CANCELED) 10 Units, SubCUTAneous, 3 times daily with meals, First dose on Sat09/21/24 at 1700 0907 (Given - Provider: Estiven Kay RN)1212 (Given - Provider: Estiven Kay RN) insulin lispro (HumaLOG) pen injection 16 Units 16 Units, SubCUTAneous, 3 times daily with meals, First dose (after last modification) on Sat09/22/24 at 1700 1616 (Given - Provider: Estiven Kay RN) 0919 (Given - Provider: Sawyer Peoples RN)1219 (Given - Provider: Sawyer Peoples, RN)1721 (Given - Provider: Sawyer Peoples, RN) 0911 (Given - Provider: Sawyer Peoples, RN)1212 (Given - Provider: Sawyer Peoples, RN)1700 (Canceled Entry - Provider: Automatic Discharge Provider - Comment: Automatically canceled at discontinue of medication order) levothyroxine (Synthroid, Levoxyl) tablet 112 mcg 112 mcg, Oral, Daily before breakfast, First dose on Sat09/19/24 at 0600 0603 (Given - Provider: Marietta Dailey RN) 0534 (Given - Provider: Celine Claudio RN) 0614 (Given - Provider: Celine Claudio RN) lisinopril tablet 20 mg 20 mg, Oral, Daily, First dose on Sat09/18/24 at 1855 0907 (Given - Provider: Estiven Kay RN) 0900 (Given - Provider: Sawyer Peoples RN) 0909 (Given - Provider: Sawyer Peoples RN) trospium (Sanctura) tablet 20 mg 20 mg, Oral, 2 times daily before meals, First dose on Sat09/19/24 at 0700, Substituted for oxybutynin (DITROPAN); fesoterodine (TOVIAZ); darifenacin (ENABLEX); solifenacin (VESICARE); tolterodine IR (DETROL); tolterodine ER (DETROL LA). Give one hour before meals. 0603 (Given - Provider: Marietta Dailey RN)1617 (Given - Provider: Estiven Kay RN) 0535 (Given - Provider: Celine Claudio RN)1720 (Given - Provider: Sawyer Peoples RN) 0614 (Given - Provider: Celine Claudio RN)1600 (Canceled Entry - Provider: Automatic Discharge Provider - Comment: Automatically canceled at discontinue of medication order) PRN Medication Order 09/22/2024 09/23/2024 09/24/2024 acetaminophen (Tylenol) suppository 650 mg(Linked Group 1) 650 mg, Rectal, Every 6 hours PRN, fever, For temp greater than 100.4 F (38 C), Starting on Sat09/18/24 at 1854, Administer if oral route cannot be used. Maximum dose of acetaminophen is 4000 mg from all sources in 24 hours. acetaminophen (Tylenol) tablet 650 mg(Linked Group 1) 650 mg, Oral, Every 6 hours PRN, mild pain (1-3), fever, For temp greater than 100.4 F (38 C), Starting on Sat09/18/24 at 1854, Maximum dose of acetaminophen is 4000 mg from all sources in 24 hours. dextrose 5 % infusion 100 mL/hr, IntraVENous, PRN, Blood sugar less than 70mg/dL, Starting on Sat09/18/24 at 1854, Start infusion following administration of dextrose 50% or glucagon. dextrose 50 % solution 12.5 g 12.5 g, IntraVENous, PRN, low blood sugar, Blood glucose less than 70 mg/dL and patient NOT ALERT or NPO., Starting on Sat09/18/24 at 1854, If patient does not respond within 5 minutes, repeat dose x1. Start D5W at 100 mL/hour until ordering provider can be reached. Repeat blood glucose in 15 minutes. If blood glucose is less than 70 mg/dL, repeat treatment and recheck blood glucose in 15 minutes x2. If using Glucostabilizer, dose as instructed per system. glucagon (human recombinant) injection 1 mg 1 mg, IntraMUSCular, PRN, low blood sugar, Blood glucose less than 70 mg/dL and patient NOT ALERT or NPO and does not have IV access., Starting on Sat09/18/24 at 1854, After administration, attempt intravenous access and start D5W at 100 mL/hr. Repeat blood glucose in 15 minutes x2 and notify provider. glucose oral gel 15 g 15 g, Oral, As needed, low blood sugar, Starting on Sat09/18/24 at 1854, If blood glucose less than 50 mg/dL and patient ALERT and NOT NPO, give 2 tubes glucose gel. If blood glucose less than 70 mg/dL and patient ALERT and NOT NPO, give 1 tube glucose gel. Repeat blood glucose in 15 minutes. If blood glucose is less than 70 mg/dL, repeat treatment and recheck blood glucose in 15 minutes x2 and notify provider. melatonin tablet 3 mg 3 mg, Oral, Nightly PRN, sleep, Starting on Sat09/21/24 at 1332 ondansetron (Zofran) injection 4 mg(Linked Group 2) 4 mg, IntraVENous, Every 6 hours PRN, nausea, vomiting, Starting on Sat09/18/24 at 1854, 1st Line. Give IV if patient is unable to take orally. If inadequate response within 60 minutes, proceed to next-line agent or contact provider if no further options ordered. ondansetron ODT (Zofran-ODT) disintegrating tablet 4 mg(Linked Group 2) 4 mg, Oral, Every 8 hours PRN, nausea, vomiting, Starting on Sat09/18/24 at 1854, 1st Line. If inadequate response within 60 minutes, proceed to next-line agent or contact provider if no further options ordered. Patient should allow tablet to dissolve on tongue. Do not remove from blister pack until just before administering. polyethylene glycol (PEG) 3350 (Miralax) packet 17 g 17 g, Oral, Daily PRN, constipation, Starting on Sat09/18/24 at 1854, 1st line for treatment of constipation - give scheduled if no bowel movement in past 24 hours. Linked Groups Order Group 1: acetaminophen (Tylenol) tablet 650 mgJump to med 650 mg, Oral, Every 6 hours PRN, mild pain (1-3), fever, For temp greater than 100.4 F (38 C), Starting on Sat09/18/24 at 1854, Maximum dose of acetaminophen is 4000 mg from all sources in 24 hours. Or acetaminophen (Tylenol) suppository 650 mgJump to med 650 mg, Rectal, Every 6 hours PRN, fever, For temp greater than 100.4 F (38 C), Starting on Sat09/18/24 at 1854, Administer if oral route cannot be used. Maximum dose of acetaminophen is 4000 mg from all sources in 24 hours. Group 2: ondansetron ODT (Zofran-ODT) disintegrating tablet 4 mgJump to med 4 mg, Oral, Every 8 hours PRN, nausea, vomiting, Starting on Sat09/18/24 at 1854, 1st Line. If inadequate response within 60 minutes, proceed to next-line agent or contact provider if no further options ordered. Patient should allow tablet to dissolve on tongue. Do not remove from blister pack until just before administering. Or ondansetron (Zofran) injection 4 mgJump to med 4 mg, IntraVENous, Every 6 hours PRN, nausea, vomiting, Starting on Sat09/18/24 at 1854, 1st Line. Give IV if patient is unable to take orally. If inadequate response within 60 minutes, proceed to next-line agent or contact provider if no further options ordered. Scheduled Medication Order 12/03/2024 12/04/2024 12/05/2024 apixaban (Eliquis) tablet 5 mg 5 mg, Oral, 2 times daily, First dose on Renee 12/03/24 at 0900, Anticoagulant 0814 (Given - Provider: Tiarra Vee RN)2008 (Given - Provider: Dayna Jacques RN) 846 (Given - Provider: Yanira Simmons, KENNA)2102 (Given - Provider: Leo Nelson RN) 47 (Given - Provider: Marielle Scott RN) atenolol (Tenormin) tablet 50 mg 50 mg, Oral, 2 times daily, First dose on Renee 12/03/24 at 0315 0320 (Given - Provider: Scott Aaron RN)2008 (Given - Provider: Dayan Jacques RN) 846 (Given - Provider: Yanira Simmons RN)2102 (Given - Provider: Leo Nelson RN) 846 (Given - Provider: Marielle Scott RN) atorvastatin (Lipitor) tablet 40 mg 40 mg, Oral, Daily, First dose on Renee 12/03/24 at 0900 0814 (Given - Provider: Tiarra Vee RN) 0847 (Given - Provider: Yanira Simmons RN) 0847 (Given - Provider: Marielle Scott RN) cefTRIAXone (Rocephin) 1,000 mg in sodium chloride 0.9 % 50 mL IVPB Mini-Bag Plus 1,000 mg, IntraVENous, at 100 mL/hr, Administer over 30 Minutes, Every 24 hours, First dose on Renee 12/03/24 at 2200, Mini-Bag Plus bag, Suspected Indication (Select all that apply): Urinary Tract Infection 2010 (New Bag - Provider: Dayna Jacques RN)2040 (Stopped - Provider: Dayna Jacques RN) 2102 (New Bag - Provider: Leo Nelson RN)2132 (Stopped - Provider: Leo Nelson RN) cholecalciferol (Vitamin D-3) tablet 2,000 Units 2,000 Units, Oral, Daily, First dose on 12/05/24 at 0900 0847 (Given - Provider: Marielle Scott RN) fenofibrate (Triglide) tablet 160 mg 160 mg, Oral, Daily, First dose on Renee 12/03/24 at 0900, Substituted for Fenofibrate (Non-Formulary Dose). 0814 (Given - Provider: Tiarra Vee RN) 0848 (Given - Provider: Yanira Simmons RN) 0847 (Given - Provider: Marielle Scott, KENNA) gabapentin (Neurontin) capsule 300 mg (COMPLETED) 300 mg, Oral, Once, On Sat12/02/24 at 2350, For 1 dose 0210 (Given - Provider: Scott Aaron RN - Comment: pt had not arrived to [place], was ordered at [place] gabapentin (Neurontin) capsule 300 mg 300 mg, Oral, 2 times daily, First dose on Sat12/03/24 at 2100 2008 (Given - Provider: Dayna Jacques RN) 08 (Given - Provider: Yanira Simmons, KENNA)2102 (Given - Provider: Leo Nelson, KENNA) 08 (Given - Provider: Marielle Scott RN) insulin glargine (Lantus) injection 27 Units (CANCELED) 27 Units, SubCUTAneous, Nightly, First dose on Sat12/03/24 at 0330, Autosub for Insulin Degludec (Tresiba) 335 (Given - Provider: Scott Aaron RN) insulin glargine (Lantus) injection 30 Units 30 Units, SubCUTAneous, Nightly, First dose (after last modification) on Sat12/04/24 at 2100, Autosub for Insulin Degludec (Tresiba) 2102 (Given - Provider: Leo Nelson, KENNA) Insulin Lispro (Humalog) injection 0-12 Units (CANCELED)(Linked Group 1) 0-12 Units, SubCUTAneous, 3 times daily with meals, First dose on Sat12/03/24 at 0815, Medium Dose Correction Algorithm Glucose: Dose: LESS than 150 No Insulin 150-199 2 Units 200-249 4 Units 250-299 6 Units 300-349 8 Units 350-400 10 Units Above 400 12 Units 0815 (Not Given - Provider: Tiarra Vee RN - Reason: Order parameters not met)1231 (Given - Provider: Tiarra Vee RN) Insulin Lispro (Humalog) injection 0-6 Units 0-6 Units, SubCUTAneous, 3 times daily with meals, First dose on Sat12/03/24 at 1700, Low dose sliding scale 0-150 give scheduled units - no extra 151-200 give 1 extra unit 201-250 give 2 extra units 251-300 give 3 extra units 301-350 give 4 extra units 351-400 give 5 extra units 401-450 give 6 extra units units and call office 1657 (Given - Provider: Tiarra Vee RN) 0847 (Given - Provider: Yanira Simmons RN)1129 (Given - Provider: Yanira Simmons RN)1713 (Given - Provider: Yanira Simmons RN) 0848 (Given - Provider: Marielle Scott RN)1200 (Canceled Entry - Provider: Automatic Discharge Provider - Comment: Automatically canceled at discontinue of medication order) Insulin Lispro (Humalog) injection 12 Units 12 Units, SubCUTAneous, 3 times daily with meals, First dose (after last modification) on [facility] 12/05/24 at 0800 0848 (Given - Provider: Marielle Scott RN)1200 (Canceled Entry - Provider: Automatic Discharge Provider - Comment: Automatically canceled at discontinue of medication order) Insulin Lispro (Humalog) injection 6 Units (COMPLETED) 6 Units, SubCUTAneous, Once, On Renee 12/03/24 at 0330, For 1 dose 0336 (Given - Provider: Scott Aaron RN - Comment: bs 220) insulin lispro (HumaLOG) pen injection 8 Units (CANCELED) 8 Units, SubCUTAneous, 3 times daily with meals, First dose on Renee 12/03/24 at 1700 1656 (Given - Provider: Tiarra Vee RN) 0848 (Given - Provider: Yanira Simmons RN)1130 (Given - Provider: Yanira Simmons, KENNA)1713 (Given - Provider: Yanira Simmons RN) levothyroxine (Synthroid, Levoxyl) tablet 112 mcg 112 mcg, Oral, Daily before breakfast, First dose on Renee 12/03/24 at 0600 0554 (Given - Provider: Scott Aaron RN) 0631 (Given - Provider: Dayna Jacques RN) 0623 (Given - Provider: Leo Nelson RN) linaGLIPtin (Tradjenta) tablet 5 mg 5 mg, Oral, Daily, First dose on Renee 12/03/24 at 0900 0916 (Given - Provider: Tiarra Vee RN) 0847 (Given - Provider: Yanira Simmons RN) 0847 (Given - Provider: Marielle Scott RN) metoprolol tartrate (Lopressor) injection 5 mg (COMPLETED) 5 mg, IntraVENous, Once, On Renee 12/03/24 at 0315, For 1 dose 0320 (Given - Provider: Scott Aaron RN - Comment: for afib RVR HR 134) PRN Medication Order 12/03/2024 12/04/2024 12/05/2024 acetaminophen (Tylenol) suppository 650 mg(Linked Group 2) 650 mg, Rectal, Every 6 hours PRN, fever, For temp greater than 100.4 F (38 C), Starting on Renee 12/03/24 at 1157, Administer if oral route cannot be used. Maximum dose of acetaminophen is 4000 mg from all sources in 24 hours. acetaminophen (Tylenol) tablet 650 mg(Linked Group 2) 650 mg, Oral, Every 6 hours PRN, mild pain (1-3), fever, For temp greater than 100.4 F (38 C), Starting on Renee 12/03/24 at 1157, Maximum dose of acetaminophen is 4000 mg from all sources in 24 hours. dextrose 5 % infusion 100 mL/hr, IntraVENous, PRN, Blood sugar less than 70mg/dL, Starting on Renee 12/03/24 at 0304, Start infusion following administration of dextrose 50% or glucagon. dextrose 50 % solution 12.5 g 12.5 g, IntraVENous, PRN, low blood sugar, Blood glucose less than 70 mg/dL and patient NOT ALERT or NPO., Starting on Renee 12/03/24 at 0304, If patient does not respond within 5 minutes, repeat dose x1. Start D5W at 100 mL/hour until ordering provider can be reached. Repeat blood glucose in 15 minutes. If blood glucose is less than 70 mg/dL, repeat treatment and recheck blood glucose in 15 minutes x2. If using Glucostabilizer, dose as instructed per system. glucagon (human recombinant) injection 1 mg 1 mg, IntraMUSCular, PRN, low blood sugar, Blood glucose less than 70 mg/dL and patient NOT ALERT or NPO and does not have IV access., Starting on Renee 12/03/24 at 0304, After administration, attempt intravenous access and start D5W at 100 mL/hr. Repeat blood glucose in 15 minutes x2 and notify provider. glucose oral gel 15 g 15 g, Oral, As needed, low blood sugar, Starting on Sat12/03/24 at 0304, If blood glucose less than 50 mg/dL and patient ALERT and NOT NPO, give 2 tubes glucose gel. If blood glucose less than 70 mg/dL and patient ALERT and NOT NPO, give 1 tube glucose gel. Repeat blood glucose in 15 minutes. If blood glucose is less than 70 mg/dL, repeat treatment and recheck blood glucose in 15 minutes x2 and notify provider. melatonin tablet 3 mg 3 mg, Oral, Nightly PRN, sleep, Starting on Sat12/03/24 at 1719 2103 (Given - Provider: Leo Nelson, RN) ondansetron (Zofran) injection 4 mg(Linked Group 3) 4 mg, IntraVENous, Every 6 hours PRN, nausea, vomiting, Starting on Sat12/03/24 at 1157, 1st Line. Give IV if patient is unable to take orally. If inadequate response within 60 minutes, proceed to next-line agent or contact provider if no further options ordered. ondansetron ODT (Zofran-ODT) disintegrating tablet 4 mg(Linked Group 3) 4 mg, Oral, Every 8 hours PRN, nausea, vomiting, Starting on Sat12/03/24 at 1157, 1st Line. If inadequate response within 60 minutes, proceed to next-line agent or contact provider if no further options ordered. Patient should allow tablet to dissolve on tongue. Do not remove from blister pack until just before administering. polyethylene glycol (PEG) 3350 (Miralax) packet 17 g 17 g, Oral, Daily PRN, constipation, Starting on Sat12/03/24 at 1157, 1st line for treatment of constipation - give scheduled if no bowel movement in past 24 hours. Linked Groups Order Group 1: Insulin Lispro (Humalog) injection 0-12 Units (CANCELED)Jump to med 0-12 Units, SubCUTAneous, 3 times daily with meals, First dose on Sat12/03/24 at 0815, Medium Dose Correction Algorithm Glucose: Dose: LESS than 150 No Insulin 150-199 2 Units 200-249 4 Units 250-299 6 Units 300-349 8 Units 350-400 10 Units Above 400 12 Units And Insulin Lispro (Humalog) injection 0-12 Units (CANCELED) 0-12 Units, SubCUTAneous, Nightly, First dose on Renee 12/03/24 at 2100, If eating or bolus tube feeding: Medium Dose Correction Algorithm Glucose: Dose: LESS than 150 No Insulin 150-199 2 Units 200-249 4 Units 250-299 6 Units 300-349 8 Units 350- 400 10 Units Above 400 12 Units Group 2: acetaminophen (Tylenol) tablet 650 mgJump to med 650 mg, Oral, Every 6 hours PRN, mild pain (1-3), fever, For temp greater than 100.4 F (38 C), Starting on Renee 12/03/24 at 1157, Maximum dose of acetaminophen is 4000 mg from all sources in 24 hours. Or acetaminophen (Tylenol) suppository 650 mgJump to med 650 mg, Rectal, Every 6 hours PRN, fever, For temp greater than 100.4 F (38 C), Starting on Sat12/03/24 at 1157, Administer if oral route cannot be used. Maximum dose of acetaminophen is 4000 mg from all sources in 24 hours. Group 3: ondansetron ODT (Zofran-ODT) disintegrating tablet 4 mgJump to med 4 mg, Oral, Every 8 hours PRN, nausea, vomiting, Starting on Sat12/03/24 at 1157, 1st Line. If inadequate response within 60 minutes, proceed to next-line agent or contact provider if no further options ordered. Patient should allow tablet to dissolve on tongue. Do not remove from blister pack until just before administering. Or ondansetron (Zofran) injection 4 mgJump to med 4 mg, IntraVENous, Every 6 hours PRN, nausea, vomiting, Starting on Sat12/03/24 at 1157, 1st Line. Give IV if patient is unable to take orally. If inadequate response within 60 minutes, proceed to next-line agent or contact provider if no further options ordered. Scheduled Medication Order 01/31/2025 02/01/2025 02/02/2025 ampicillin-sulbactam (Unasyn) 3,000 mg in sodium chloride 0.9 % 100 mL IVPB (Add-[place]) 3,000 mg, IntraVENous, at 200 mL/hr, Administer over 30 Minutes, Every 6 hours, First dose on Sat01/27/25 at 1315, For 26 doses, ADD-[place] bag, Suspected Indication (Select all that apply): Surgical Site Infection 0258 (New Bag - Provider: Marietta Mix RN)0358 (Stopped - Provider: Marietta Mix RN)0833 (New Bag - Provider: Carmen Fong RN)0905 (Stopped - Provider: Carmen Fong RN)1353 (New Bag - Provider: Carmen Fong RN)1423 (Stopped - Provider: Carmen Fong RN)1953 (New Bag - Provider: Kyara Blanco RN)2037 (Stopped - Provider: Kyara Blanco, RN) 0223 (New Bag - Provider: Kyara Blanco, RN)0307 (Stopped - Provider: Kyara Blanco RN)0828 (New Bag - Provider: Vance Swift RN)0913 (Stopped - Provider: Vance Swift RN)1412 (New Bag - Provider: Vance Swift RN)1455 (Stopped - Provider: Vance Swift RN)2007 (New Bag - Provider: Tiarra Ross RN)2122 (Stopped - Provider: Tiarra Ross RN) 0148 (New Bag - Provider: Tiarra Ross RN)0252 (Stopped - Provider: Tiarra Ross RN)0853 (New Bag - Provider: Vance Swift RN)0927 (Stopped - Provider: Vance Swift RN)1345 (New Bag - Provider: Vance Swift, RN)1415 (Due: Stopped - Provider: Vance Swift, RN) apixaban (Eliquis) tablet 5 mg 5 mg, Oral, 2 times daily, First dose on Sat01/26/25 at 1000, Anticoagulant 0833 (Given - Provider: Carmen Fong RN)2000 (Given - Provider: Kyara Blanco RN) 0828 (Given - Provider: Vance Swift RN)2007 (Given - Provider: Tiarra Ross RN) 0853 (Given - Provider: Vance Swift RN) atenolol (Tenormin) tablet 25 mg 25 mg, Oral, 2 times daily, First dose on Sat01/26/25 at 1000 0834 (Given - Provider: Carmen Fong RN)1999 (Given - Provider: Kyara Blanco RN) 08 (Given - Provider: Vance Swift, RN)2007 (Given - Provider: Tiarra Ross, RN) 0853 (Given - Provider: Vance Swift RN) gabapentin (Neurontin) capsule 300 mg 300 mg, Oral, 2 times daily, First dose on Sat01/26/25 at 1000 0833 (Given - Provider: Carmen Fong RN)2000 (Given - Provider: Kyara Blanco RN) 827 (Given - Provider: Vance Swift RN)2007 (Given - Provider: Tiarra Ross RN) 08 (Given - Provider: Vance Swift, RN) insulin glargine (Lantus) injection 32 Units 32 Units, SubCUTAneous, Nightly, First dose on Sat01/26/25 at 2100, Do not hold without physician order. 2000 (Given - Provider: Kyara Blanco RN) 2018 (Given - Provider: Tiarra Ross, KENNA) Insulin Lispro (Humalog) injection 0-12 Units 0-12 Units, SubCUTAneous, 3 times daily with meals, First dose on Sat01/26/25 at 1200, Medium Dose Correction Algorithm Glucose: Dose: LESS than 150 No Insulin 150-199 2 Units 200-249 4 Units 250-299 6 Units 300-349 8 Units 350-400 10 Units Above 400 12 Units 0832 (Not Given - Provider: Carmen Fong RN - Reason: Order parameters not met - Comment: 118)1221 (Given - Provider: Carmen Fong RN - Comment: 200)1745 (Not Given - Provider: Carmen Fong RN - Reason: Order parameters not met - Comment: 147) 0811 (Not Given - Provider: Vance Swift RN - Reason: Order parameters not met)1254 (Given - Provider: Vance Swift, RN)1750 (Given - Provider: Vance Swift, RN) 0748 (Not Given - Provider: Vance Swift RN - Reason: Order parameters not met)1248 (Given - Provider: Vance Swift, RN) Insulin Lispro (Humalog) injection 8 Units 8 Units, SubCUTAneous, 3 times daily with meals, First dose (after last modification) on Sat01/28/25 at 1700, Give 5 units prior to breakfast, 5 units prior to lunch, and 5 units prior to dinner, only when tray is in room and patient eating 50% of meal. If meal intake is uncertain then immediate post meal injection is acceptable. Give prior to bolus tube feedings. Hold if patient is NPO or if pre-meal blood glucose is less than or equal to 70 mg/dL. 0833 (Given - Provider: Carmen Fong RN)1221 (Given - Provider: Carmen Fong RN)1757 (Given - Provider: Carmen Fong RN) 0827 (Given - Provider: Vance Swift RN)1254 (Given - Provider: Vance Swift RN)1750 (Given - Provider: Vance Swift, RN) 0852 (Given - Provider: Vance Swift RN)1248 (Given - Provider: Vance Swift RN) Lactobacillus 0.05-0.05 MG 4 tablet 4 tablet, Oral, Daily, First dose on Sat01/26/25 at 1115 0834 (Given - Provider: Carmen Fong RN) 0828 (Given - Provider: Vance Swift RN) 0853 (Given - Provider: Vance Swift RN) levothyroxine (Synthroid, Levoxyl) tablet 112 mcg 112 mcg, Oral, Daily before breakfast, First dose on Sat01/27/25 at 0600 0601 (Given - Provider: Marietta Mix, KENNA) 0542 (Given - Provider: Kyara Blanco, KENNA) 0545 (Given - Provider: Tiarra Ross, KENNA) potassium chloride CR (Klor-Con M10) ER tablet 40 mEq (COMPLETED) 40 mEq, Oral, Once, On Sat02/02/25 at 1000, For 1 dose, Best given with food and plenty of water to minimize gastric irritation. Do not crush or chew. 1043 (Given - Provider: Vance Swift, KENNA) sodium chloride 0.9% (NS) flush 5-40 mL 5-40 mL, IntraVENous, Every 12 hours scheduled (2 times per day), First dose on Sat01/26/25 at 0900, For Line Patency: Peripheral IV = 5 mL; Midline or Central Line = 10 mL/lumen. If following IV push medication, administer flush at same rate as the IV push. Flush volume is determined by type of infusion therapy being given. For non-viscous solutions use: Peripheral IV = 5 mL Midline or Central Line = 10 mL/lumen For viscous solutions (i.e. blood components, parenteral nutrition, contrast media, or after obtaining blood sample) use: Peripheral IV = 10 mL Midline or Central Line = 20 mL/lumen 0834 (Given - Provider: Carmen Fong, RN)2000 (Given - Provider: Kyara Blanco, RN) 827 (Not Given - Provider: Vance Swift RN - Reason: IV Fluids Infusing)2121 (Not Given - Provider: Tiarra Ross RN - Reason: IV Fluids Infusing) 08 (Given - Provider: Vance Swift RN) PRN Medication Order 01/31/2025 02/01/2025 02/02/2025 acetaminophen (Tylenol) suppository 650 mg(Linked Group 1) 650 mg, Rectal, Every 6 hours PRN, fever, For temp greater than 100.4 F (38 C), Starting on Sat01/26/25 at 0945, Administer if oral route cannot be used. Maximum dose of acetaminophen is 4000 mg from all sources in 24 hours. acetaminophen (Tylenol) tablet 650 mg(Linked Group 1) 650 mg, Oral, Every 6 hours PRN, mild pain (1-3), fever, For temp greater than 100.4 F (38 C), Starting on Sat01/26/25 at 0945, Maximum dose of acetaminophen is 4000 mg from all sources in 24 hours. dextrose 5 % infusion 100 mL/hr, IntraVENous, PRN, Blood sugar less than 70mg/dL, Starting on Sat01/26/25 at 0945, Start infusion following administration of dextrose 50% or glucagon. dextrose 50 % solution 12.5 g 12.5 g, IntraVENous, PRN, low blood sugar, Blood glucose less than 70 mg/dL and patient NOT ALERT or NPO., Starting on Sat01/26/25 at 0945, If patient does not respond within 5 minutes, repeat dose x1. Start D5W at 100 mL/hour until ordering provider can be reached. Repeat blood glucose in 15 minutes. If blood glucose is less than 70 mg/dL, repeat treatment and recheck blood glucose in 15 minutes x2. If using Glucostabilizer, dose as instructed per system. glucagon (human recombinant) injection 1 mg 1 mg, IntraMUSCular, PRN, low blood sugar, Blood glucose less than 70 mg/dL and patient NOT ALERT or NPO and does not have IV access., Starting on Sat01/26/25 at 0945, After administration, attempt intravenous access and start D5W at 100 mL/hr. Repeat blood glucose in 15 minutes x2 and notify provider. glucose oral gel 15 g 15 g, Oral, As needed, low blood sugar, Starting on Sat01/26/25 at 0945, If blood glucose less than 50 mg/dL and patient ALERT and NOT NPO, give 2 tubes glucose gel. If blood glucose less than 70 mg/dL and patient ALERT and NOT NPO, give 1 tube glucose gel. Repeat blood glucose in 15 minutes. If blood glucose is less than 70 mg/dL, repeat treatment and recheck blood glucose in 15 minutes x2 and notify provider. metoprolol tartrate (Lopressor) injection 5 mg 5 mg, IntraVENous, Every 6 hours PRN, tachycardia, sustained HR >130, Starting on Sat01/26/25 at 1240 ondansetron (Zofran) injection 4 mg(Linked Group 2) 4 mg, IntraVENous, Every 6 hours PRN, nausea, vomiting, Starting on Sat01/26/25 at 0945, 1st Line. Give IV if patient is unable to take orally. If inadequate response within 60 minutes, proceed to next-line agent or contact provider if no further options ordered. ondansetron ODT (Zofran-ODT) disintegrating tablet 4 mg(Linked Group 2) 4 mg, Oral, Every 8 hours PRN, nausea, vomiting, Starting on Sat01/26/25 at 0945, 1st Line. If inadequate response within 60 minutes, proceed to next-line agent or contact provider if no further options ordered. Patient should allow tablet to dissolve on tongue. Do not remove from blister pack until just before administering. polyethylene glycol (PEG) 3350 (Miralax) packet 17 g 17 g, Oral, Daily PRN, constipation, Starting on Sat01/26/25 at 0945, 1st line for treatment of constipation - give scheduled if no bowel movement in past 24 hours. sodium chloride 0.9 % infusion 5-250 mL/hr, IntraVENous, PRN, if patient receiving piggyback infusions and maintenance fluids are not ordered OR KVO fluids to protect IV site / prevent frequent line interruptions/ long duration, Starting on Sat01/26/25 at 0230, For piggyback infusion, administer at same rate as piggyback for a total of 25 mL. Enter 25 mL into dose field and piggyback rate into rate field of order. If piggyback is infusing at a rate less than 100 mL/hr, enter 25 mL into dose field and 100 mL/hr into rate field of order. For KVO fluids, enter rate of 20 mL/hr or less into rate field of order. sodium chloride 0.9% (NS) flush 5-40 mL 5-40 mL, IntraVENous, PRN, line care, Starting on Sat01/26/25 at 0230, For Line Patency: Peripheral IV = 5 mL; Midline or Central Line = 10 mL/lumen. If following IV push medication, administer flush at same rate as the IV push. Flush volume is determined by type of infusion therapy being given. For non-viscous solutions use: Peripheral IV = 5 mL Midline or Central Line = 10 mL/lumen For viscous solutions (i.e. blood components, parenteral nutrition, contrast media, or after obtaining blood sample) use: Peripheral IV = 10 mL Midline or Central Line = 20 mL/lumen Linked Groups Order Group 1: acetaminophen (Tylenol) tablet 650 mgJump to med 650 mg, Oral, Every 6 hours PRN, mild pain (1-3), fever, For temp greater than 100.4 F (38 C), Starting on Sat01/26/25 at 0945, Maximum dose of acetaminophen is 4000 mg from all sources in 24 hours. Or acetaminophen (Tylenol) suppository 650 mgJump to med 650 mg, Rectal, Every 6 hours PRN, fever, For temp greater than 100.4 F (38 C), Starting on Sat01/26/25 at 0945, Administer if oral route cannot be used. Maximum dose of acetaminophen is 4000 mg from all sources in 24 hours. Group 2: ondansetron ODT (Zofran-ODT) disintegrating tablet 4 mgJump to med 4 mg, Oral, Every 8 hours PRN, nausea, vomiting, Starting on Sat01/26/25 at 0945, 1st Line. If inadequate response within 60 minutes, proceed to next-line agent or contact provider if no further options ordered. Patient should allow tablet to dissolve on tongue. Do not remove from blister pack until just before administering. Or ondansetron (Zofran) injection 4 mgJump to med 4 mg, IntraVENous, Every 6 hours PRN, nausea, vomiting, Starting on Sat01/26/25 at 0945, 1st Line. Give IV if patient is unable to take orally. If inadequate response within 60 minutes, proceed to next-line agent or contact provider if no further options ordered. Scheduled Medication Order 03/13/2025 03/14/2025 03/15/2025 apixaban (Eliquis) tablet 5 mg 5 mg, Oral, 2 times daily, First dose on 03/13/25 at 0020, Anticoagulant 0125 (Given - Provider: Faby Daugherty RN)0854 (Given - Provider: Laura Urrutia, KENNA)2021 (Given - Provider: Dorothy Ayers RN) 0916 (Given - Provider: Siomara Flores, KENNA)1947 (Given - Provider: Dorothy Ayers RN) 075 (Given - Provider: Chikis Benitez, KENNA) gabapentin (Neurontin) capsule 300 mg 300 mg, Oral, 2 times daily, First dose on 03/13/25 at 0020 0124 (Given - Provider: Faby Daugherty RN)0854 (Given - Provider: Laura Urrutia, KENNA)2021 (Given - Provider: Dorothy Ayers RN) 0916 (Given - Provider: Siomara Flores, KENNA)194 (Given - Provider: Dorothy Ayers RN) 075 (Given - Provider: Chikis Benitez, KENNA) insulin glargine (Lantus) injection 16 Units 16 Units, SubCUTAneous, Nightly, First dose (after last modification) on 03/13/25 at 2100 2022 (Given - Provider: Dorothy Ayers RN) 194 (Given - Provider: Dorothy Ayers RN) insulin glargine (Lantus) injection 32 Units (CANCELED) 32 Units, SubCUTAneous, Nightly, First dose on 03/13/25 at 0020 0125 (Given - Provider: Faby Daugherty RN) Insulin Lispro (Humalog) injection 0-6 Units(Linked Group 1) 0-6 Units, SubCUTAneous, 3 times daily with meals, First dose on 03/13/25 at 0800, Low Dose Correction Algorithm Glucose: Dose: LESS than 150 No Insulin 150-199 1 Unit 200-249 2 Units 250-299 3 Units 300-349 4 Units 350-400 5 Units Above 400 6 Units 0749 (Not Given - Provider: Laura Urrutia RN - Reason: Order parameters not met - Comment: BGT 58)1200 (Canceled Entry - Provider: Automatic Discharge Provider - Comment: Automatically canceled at discontinue of medication order)1700 (Not Given - Provider: Siomara Flores RN - Reason: Order parameters not met) 0800 (Not Given - Provider: Siomara Flores RN - Reason: Order parameters not met)1200 (Canceled Entry - Provider: Automatic Discharge Provider - Comment: Automatically canceled at discontinue of medication order)1700 (Canceled Entry - Provider: Automatic Discharge Provider - Comment: Automatically canceled at discontinue of medication order) 0751 (Not Given - Provider: Chikis Benitez RN - Reason: Order parameters not met)1147 (Not Given - Provider: Chikis Benitez RN - Reason: Order parameters not met)1700 (Canceled Entry - Provider: Automatic Discharge Provider - Comment: Automatically canceled at discontinue of medication order) Insulin Lispro (Humalog) injection 0-6 Units(Linked Group 1) 0-6 Units, SubCUTAneous, Nightly, First dose on 03/13/25 at 0020, If eating or bolus tube feeding: Low Dose Correction Algorithm Glucose: Dose: LESS than 150 No Insulin 150-199 1 Unit 200-249 2 Units 250-299 3 Units 300-349 4 Units 350-400 5 Units Above 400 6 Units 0125 (Given - Provider: Faby Daugherty RN)2021 (Given - Provider: Dorothy Ayers, KENNA) 194 (Given - Provider: Dorothy Ayers RN) levothyroxine (Synthroid, Levoxyl) tablet 112 mcg 112 mcg, Oral, Daily before breakfast, First dose on 03/13/25 at 0600 0619 (Given - Provider: Faby Daugherty RN) 0543 (Given - Provider: Dorothy Ayers RN) 0554 (Given - Provider: Dorothy Ayers RN) metoprolol tartrate (Lopressor) tablet 25 mg 25 mg, Oral, 2 times daily, First dose on 03/13/25 at 0900, Hold if systolic blood pressure less than 100, heart rate less than 50 0854 (Given - Provider: Laura Urrutia RN)2021 (Given - Provider: Dorothy Ayers RN) 0916 (Given - Provider: Siomara Flores, KENNA)194 (Given - Provider: Dorothy Ayers RN) 0751 (Given - Provider: Chikis Benitez RN) trospium (Sanctura) tablet 20 mg 20 mg, Oral, 2 times daily before meals, First dose on 03/13/25 at 0700, Substituted for oxybutynin (DITROPAN); fesoterodine (TOVIAZ); darifenacin (ENABLEX); solifenacin (VESICARE); tolterodine IR (DETROL); tolterodine ER (DETROL LA). Give one hour before meals. 0619 (Given - Provider: Faby Daugherty RN)1700 (Given - Provider: Siomara Flores RN) 0543 (Given - Provider: Dorothy Ayers RN)1600 (Canceled Entry - Provider: Automatic Discharge Provider - Comment: Automatically canceled at discontinue of medication order) 0600 (Given - Provider: Dorothy Ayers RN)1600 (Canceled Entry - Provider: Automatic Discharge Provider - Comment: Automatically canceled at discontinue of medication order) Continuous Medication Order 03/13/2025 03/14/2025 03/15/2025 sodium chloride 0.9 % infusion (CANCELED) 75 mL/hr, IntraVENous, Continuous, Starting on Sat03/12/25 at 2250, For 13 hours 0124 (New Bag - Provider: Faby Daugherty RN)0749 (Stopped - Provider: Laura Urrutia RN) sodium chloride 0.9 % infusion (CANCELED) 100 mL/hr, IntraVENous, Continuous, Starting on 03/13/25 at 0720, For 1 L 0816 (New Bag - Provider: Laura Urrutia, RN) 0917 (New Bag - Provider: Siomara Flores RN) 0750 (Stopped - Provider: Chikis Benitez RN - Comment: [Order ends at this time. Document the following action when infusion is complete: Stopped]) PRN Medication Order 03/13/2025 03/14/2025 03/15/2025 acetaminophen (Tylenol) suppository 650 mg(Linked Group 2) 650 mg, Rectal, Every 6 hours PRN, fever, For temp greater than 100.4 F (38 C), Starting on 03/13/25 at 0017, Administer if oral route cannot be used. Maximum dose of acetaminophen is 4000 mg from all sources in 24 hours. acetaminophen (Tylenol) tablet 650 mg(Linked Group 2) 650 mg, Oral, Every 6 hours PRN, mild pain (1-3), fever, For temp greater than 100.4 F (38 C), Starting on 03/13/25 at 0017, Maximum dose of acetaminophen is 4000 mg from all sources in 24 hours. dextrose 5 % infusion 100 mL/hr, IntraVENous, PRN, Blood sugar less than 70mg/dL, Starting on 03/13/25 at 0017, Start infusion following administration of dextrose 50% or glucagon. dextrose 50 % solution 12.5 g 12.5 g, IntraVENous, PRN, low blood sugar, Blood glucose less than 70 mg/dL and patient NOT ALERT or NPO., Starting on 03/13/25 at 0017, If patient does not respond within 5 minutes, repeat dose x1. Start D5W at 100 mL/hour until ordering provider can be reached. Repeat blood glucose in 15 minutes. If blood glucose is less than 70 mg/dL, repeat treatment and recheck blood glucose in 15 minutes x2. If using Glucostabilizer, dose as instructed per system. glucagon (human recombinant) injection 1 mg 1 mg, IntraMUSCular, PRN, low blood sugar, Blood glucose less than 70 mg/dL and patient NOT ALERT or NPO and does not have IV access., Starting on 03/13/25 at 0017, After administration, attempt intravenous access and start D5W at 100 mL/hr. Repeat blood glucose in 15 minutes x2 and notify provider. glucose oral gel 15 g 15 g, Oral, As needed, low blood sugar, Starting on 03/13/25 at 0017, If blood glucose less than 50 mg/dL and patient ALERT and NOT NPO, give 2 tubes glucose gel. If blood glucose less than 70 mg/dL and patient ALERT and NOT NPO, give 1 tube glucose gel. Repeat blood glucose in 15 minutes. If blood glucose is less than 70 mg/dL, repeat treatment and recheck blood glucose in 15 minutes x2 and notify provider. melatonin tablet 3 mg 3 mg, Oral, Nightly PRN, sleep, Starting on 03/13/25 at 0017 metoprolol tartrate (Lopressor) injection 2.5 mg 2.5 mg, IntraVENous, Every 5 min PRN, tachycardia, Administer as needed for persisting tachycardia HR >110bpm, Starting on 03/13/25 at 0017, For 3 doses ondansetron (Zofran) injection 4 mg(Linked Group 3) 4 mg, IntraVENous, Every 6 hours PRN, nausea, vomiting, Starting on 03/13/25 at 0017, Administer if oral route cannot be used. ondansetron ODT (Zofran-ODT) disintegrating tablet 4 mg(Linked Group 3) 4 mg, Oral, Every 8 hours PRN, nausea, vomiting, Starting on 03/13/25 at 0017, Patient should allow tablet to dissolve on tongue. Do not remove from blister pack until just before administering. polyethylene glycol (PEG) 3350 (Miralax) packet 17 g 17 g, Oral, Daily PRN, constipation, Starting on 03/13/25 at 0017, 1st line for treatment of constipation - give scheduled if no bowel movement in past 24 hours. Linked Groups Order Group 1: Insulin Lispro (Humalog) injection 0-6 UnitsJump to med 0-6 Units, SubCUTAneous, 3 times daily with meals, First dose on 03/13/25 at 0800, Low Dose Correction Algorithm Glucose: Dose: LESS than 150 No Insulin 150- 199 1 Unit 200-249 2 Units 250-299 3 Units 300-349 4 Units 350-400 5 Units Above 400 6 Units And Insulin Lispro (Humalog) injection 0-6 UnitsJump to med 0-6 Units, SubCUTAneous, Nightly, First dose on 03/13/25 at 0020, If eating or bolus tube feeding: Low Dose Correction Algorithm Glucose: Dose: LESS than 150 No Insulin 150-199 1 Unit 200-249 2 Units 250-299 3 Units 300-349 4 Units 350-400 5 Units Above 400 6 Units Group 2: acetaminophen (Tylenol) tablet 650 mgJump to med 650 mg, Oral, Every 6 hours PRN, mild pain (1-3), fever, For temp greater than 100.4 F (38 C), Starting on 03/13/25 at 0017, Maximum dose of acetaminophen is 4000 mg from all sources in 24 hours. Or acetaminophen (Tylenol) suppository 650 mgJump to med 650 mg, Rectal, Every 6 hours PRN, fever, For temp greater than 100.4 F (38 C), Starting on 03/13/25 at 0017, Administer if oral route cannot be used. Maximum dose of acetaminophen is 4000 mg from all sources in 24 hours. Group 3: ondansetron ODT (Zofran-ODT) disintegrating tablet 4 mgJump to med 4 mg, Oral, Every 8 hours PRN, nausea, vomiting, Starting on 03/13/25 at 0017, Patient should allow tablet to dissolve on tongue. Do not remove from blister pack until just before administering. Or ondansetron (Zofran) injection 4 mgJump to med 4 mg, IntraVENous, Every 6 hours PRN, nausea, vomiting, Starting on 03/13/25 at 0017, Administer if oral route cannot be used. Scheduled Medication Order 03/22/2025 03/23/2025 03/24/2025 acetaminophen (Tylenol) tablet 1,000 mg 1,000 mg, Oral, 3 times daily, First dose on Sat03/22/25 at 2115, Maximum dose of acetaminophen is 4000 mg from all sources in 24 hours. 2129 (Given - Provider: Laisha Davis RN) 0915 (Given - Provider: Sonja Domingo, KENNA)1334 (Given - Provider: Sonja Domingo, RN)2030 (Given - Provider: Laisha Davis RN) 0858 (Given - Provider: Sonja Domingo, KENNA)1246 (Given - Provider: Sonja Domingo, KENNA) apixaban (Eliquis) tablet 5 mg 5 mg, Oral, 2 times daily, First dose on Sat03/21/25 at 2100, Anticoagulant 0900 (Dose Auto Held - Provider: Raffi Paulino MD)2099 (Dose Auto Held - Provider: Raffi Paulino MD) 0733 (Unheld by provider - Provider: Brice Mota MD)0914 (Given - Provider: Sonja Domingo, KENNA)2030 (Given - Provider: Laisha Davis RN) 0858 (Given - Provider: Sonja Domingo RN) atorvastatin (Lipitor) tablet 20 mg 20 mg, Oral, Nightly, First dose on 03/20/25 at 2099 2031 (Given - Provider: Laisha Davis RN) 2030 (Given - Provider: Laisha Davis RN) cyanocobalamin (Vitamin B-12) tablet 1,000 mcg 1,000 mcg, Oral, Daily, First dose on Sat03/24/25 at 1115 1245 (Given - Provider: Sonja Domingo, KENNA) gabapentin (Neurontin) capsule 300 mg 300 mg, Oral, 2 times daily, First dose on 03/20/25 at 2100 0847 (Given - Provider: Negra Will RN)2031 (Given - Provider: Laisha Davis RN) 0915 (Given - Provider: Sonja Domingo, KENNA)2030 (Given - Provider: Laisha Davis RN) 0858 (Given - Provider: Sonja Domingo, KENNA) insulin glargine (Lantus) injection 26 Units 26 Units, SubCUTAneous, Nightly, First dose on 03/20/25 at 2099 2050 (Given - Provider: Laisha Davis RN) 2100 (Given - Provider: Laisha Davis RN) Insulin Lispro (Humalog) injection 0-12 Units(Linked Group 1) 0-12 Units, SubCUTAneous, 3 times daily with meals, First dose on Sat03/22/25 at 1200, Medium Dose Correction Algorithm Glucose: Dose: LESS than 150 No Insulin 150-199 2 Units 200-249 4 Units 250-299 6 Units 300-349 8 Units 350-400 10 Units Above 400 12 Units 1239 (Given - Provider: Negra Will RN)1729 (Given - Provider: Negra Will RN) 0916 (Given - Provider: Sonja Domingo, RN)1253 (Given - Provider: Sonja Domingo, RN)1821 (Given - Provider: Sonja Domingo, KENNA) 0858 (Given - Provider: Sonja Domingo, RN)1255 (Given - Provider: Sonja Domingo, RN)1700 (Canceled Entry - Provider: Automatic Discharge Provider - Comment: Automatically canceled at discontinue of medication order) Insulin Lispro (Humalog) injection 0-12 Units(Linked Group 1) 0-12 Units, SubCUTAneous, Nightly, First dose on 03/22/25 at 2100, If eating or bolus tube feeding: Medium Dose Correction Algorithm Glucose: Dose: LESS than 150 No Insulin 150-199 2 Units 200-249 4 Units 250-299 6 Units 300-349 8 Units 350-400 10 Units Above 400 12 Units 2050 (Given - Provider: Laisha Davis, KENNA) 2100 (Given - Provider: Laisha Davis RN) Insulin Lispro (Humalog) injection 0-6 Units (CANCELED) 0-6 Units, SubCUTAneous, 3 times daily with meals, First dose on 03/20/25 at 1830, Low Dose Correction Algorithm Glucose: Dose: LESS than 150 No Insulin 150-199 1 Unit 200-249 2 Units 250-299 3 Units 300-349 4 Units 350-400 5 Units Above 400 6 Units 0916 (Given - Provider: Negra Will, KENAN) Lactobacillus 0.05-0.05 MG 4 tablet 4 tablet, Oral, Daily, First dose on 03/20/25 at 1830 0853 (Given - Provider: Negra Will, KENNA) 0932 (Given - Provider: Sonja Domingo, KENNA) 0903 (Given - Provider: Sonja Domingo, KENNA) levothyroxine (Synthroid, Levoxyl) tablet 25 mcg 25 mcg, Oral, Daily before breakfast, First dose on 03/21/25 at 0600 0605 (Given - Provider: Tanika Gutierrez RN) 0530 (Given - Provider: Laisha Davis, KENNA) 0525 (Given - Provider: Laisha Davis RN) metoprolol succinate XL (Toprol-XL) 24 hr tablet 50 mg 50 mg, Oral, 2 times daily, First dose on Sat03/24/25 at 1415, Do not crush or chew. 1415 (Given - Provider: Sonja Domingo, RN) metoprolol tartrate (Lopressor) tablet 25 mg (CANCELED) 25 mg, Oral, Every 8 hours, First dose (after last modification) on 03/21/25 at 1700 0117 (Given - Provider: Tanika Gutierrez RN)0847 (Given - Provider: Negra Will RN)1729 (Given - Provider: Negra Will, KENNA) 0129 (Given - Provider: Laisha Davis, RN)0915 (Given - Provider: Sonja Domingo, RN)1631 (Given - Provider: Sonja Domingo, RN) 0114 (Given - Provider: Laisha Davis RN)0858 (Given - Provider: Sonja Domingo, RN) piperacillin-tazobactam (Zosyn) 4,500 mg in sodium chloride 0.9 % 100 mL IVPB Mini-Bag Plus (CANCELED) 4,500 mg, IntraVENous, at 33.3 mL/hr, Administer over 3 Hours, Every 6 hours, First dose (after last reorder) on 03/21/25 at 2000, Mini-Bag Plus bag, Suspected Indication (Select all that apply): Sepsis of Unknown Etiology 0131 (New Bag - Provider: Tanika Gutierrez RN)0434 (Stopped - Provider: Tanika Gutierrez RN)0847 (New Bag - Provider: Negra Will RN)1212 (Stopped - Provider: Negra Will RN)1350 (New Bag - Provider: Negra Will, KENNA)1650 (Stopped - Provider: Negra Will, KENNA)2026 (New Bag - Provider: Laisha Davis RN)2326 (Stopped - Provider: Laisha Davis RN) 0129 (New Bag - Provider: Laisha Davis RN)0429 (Stopped - Provider: Laisha Davis RN)0921 (New Bag - Provider: Sonja Domingo, RN)1221 (Stopped - Provider: Sonja Domingo, RN)1334 (New Bag - Provider: Sonja Domingo RN)1636 (Stopped - Provider: Sonja Domingo RN)2030 (New Bag - Provider: Laisha Davis RN)2333 (Stopped - Provider: Laisha Davis RN) 0114 (New Bag - Provider: Laisha Davis RN)0419 (Stopped - Provider: Laisha Davis RN)0859 (New Bag - Provider: Sonja Domingo RN)1159 (Stopped - Provider: Sonja Domingo RN) trospium (Sanctura) tablet 20 mg 20 mg, Oral, Daily before breakfast, First dose on Sat03/21/25 at 0600, Substituted for oxybutynin (DITROPAN); fesoterodine (TOVIAZ); darifenacin (ENABLEX); solifenacin (VESICARE); tolterodine IR (DETROL); tolterodine ER (DETROL LA). Give one hour before meals. 0605 (Given - Provider: Tanika Gutierrez RN) 0530 (Given - Provider: Laisha Davis RN) 0525 (Given - Provider: Laisha Davis RN) vancomycin (Vancocin) 1,000 mg in sodium chloride 0.9 % 250 mL IVPB (Vial Mate) (CANCELED) 1,000 mg, IntraVENous, at 166.7 mL/hr, Administer over 90 Minutes, Every 24 hours, First dose on Sat03/22/25 at 2000, Vial Mate, Suspected Indication (Select all that apply): Skin and Soft Tissue Infection, Sepsis of Unknown Etiology 2026 (Given - Provider: Laisha Davis RN) Continuous Medication Order 03/22/2025 03/23/2025 03/24/2025 lactated Ringer's infusion (CANCELED) 75 mL/hr, IntraVENous, Continuous, Starting on Sat03/21/25 at 1845, For 1 day 1349 (New Bag - Provider: Negra Will RN)1837 (Stopped - Provider: Negra Will RN - Comment: [Order ends at this time. Document the following action when infusion is complete: Stopped]) PRN Medication Order 03/22/2025 03/23/2025 03/24/2025 acetaminophen (Tylenol) tablet 650 mg (CANCELED)(Linked Group 2) 650 mg, Oral, Every 6 hours PRN, mild pain (1-3), fever, For temp greater than 100.4 F (38 C), Starting on 03/20/25 at 1817, Maximum dose of acetaminophen is 4000 mg from all sources in 24 hours. 0117 (Given - Provider: Tanika Gutierrez RN) dextrose 5 % infusion 100 mL/hr, IntraVENous, PRN, Blood sugar less than 70mg/dL, Starting on 03/20/25 at 1820, Start infusion following administration of dextrose 50% or glucagon. dextrose 50 % solution 12.5 g 12.5 g, IntraVENous, PRN, low blood sugar, Blood glucose less than 70 mg/dL and patient NOT ALERT or NPO., Starting on 03/20/25 at 1820, If patient does not respond within 5 minutes, repeat dose x1. Start D5W at 100 mL/hour until ordering provider can be reached. Repeat blood glucose in 15 minutes. If blood glucose is less than 70 mg/dL, repeat treatment and recheck blood glucose in 15 minutes x2. If using Glucostabilizer, dose as instructed per system. glucagon (human recombinant) injection 1 mg 1 mg, IntraMUSCular, PRN, low blood sugar, Blood glucose less than 70 mg/dL and patient NOT ALERT or NPO and does not have IV access., Starting on 03/20/25 at 1820, After administration, attempt intravenous access and start D5W at 100 mL/hr. Repeat blood glucose in 15 minutes x2 and notify provider. glucose oral gel 15 g 15 g, Oral, As needed, low blood sugar, Starting on 03/20/25 at 1820, If blood glucose less than 50 mg/dL and patient ALERT and NOT NPO, give 2 tubes glucose gel. If blood glucose less than 70 mg/dL and patient ALERT and NOT NPO, give 1 tube glucose gel. Repeat blood glucose in 15 minutes. If blood glucose is less than 70 mg/dL, repeat treatment and recheck blood glucose in 15 minutes x2 and notify provider. HYDROmorphone (Dilaudid) injection 0.25 mg(Linked Group 3) 0.25 mg, IntraVENous, Every 4 hours PRN, breakthrough, Starting on 03/22/25 at 2112, If oral and IV narcotics ordered, use oral first and only use IV if oral is ineffective or cannot take oral. Do Not give oral and IV within 1 hour of each other unless specifically ordered. 09 (Given - Provider: Sonja Domingo, RN) HYDROmorphone (Dilaudid) injection 0.5 mg (CANCELED) 0.5 mg, IntraVENous, Every 4 hours PRN, severe pain (7-10), Starting on 03/20/25 at 2058, If oral and IV narcotics ordered, use oral first and only use IV if oral is ineffective or cannot take oral. Do Not give oral and IV within 1 hour of each other unless specifically ordered. 0707 (Given - Provider: Tanika Gutierrez, KENNA) melatonin tablet 3 mg 3 mg, Oral, Nightly PRN, sleep, Starting on 03/22/25 at 1539 metoprolol tartrate (Lopressor) injection 5 mg 5 mg, IntraVENous, Every 5 min PRN, tachycardia, sustained HR >120, message attending prior to administration, Starting on 03/21/25 at 1518 1010 (Given - Provider: Sonja Domingo, KENNA) naloxone (Narcan) injection 0.4 mg 0.4 mg, IntraVENous, As needed, opioid reversal, pinpoint pupils, Starting on 03/20/25 at 2058, administer IV PRN for oversedation, RR LESS than 10 ondansetron (Zofran) injection 4 mg(Linked Group 4) 4 mg, IntraVENous, Every 6 hours PRN, nausea, vomiting, Starting on 03/20/25 at 1817, 1st Line. Give IV if patient is unable to take orally. If inadequate response within 60 minutes, proceed to next-line agent or contact provider if no further options ordered. ondansetron ODT (Zofran-ODT) disintegrating tablet 4 mg(Linked Group 4) 4 mg, Oral, Every 8 hours PRN, nausea, vomiting, Starting on 03/20/25 at 1817, 1st Line. If inadequate response within 60 minutes, proceed to next-line agent or contact provider if no further options ordered. Patient should allow tablet to dissolve on tongue. Do not remove from blister pack until just before administering. oxyCODONE (Roxicodone) immediate release tablet 2.5 mg(Linked Group 5) 2.5 mg, Oral, Every 4 hours PRN, moderate pain (4-6), Starting on 8/9/25 at 8 0916 (Given - Provider: Negra Will, KENNA)1331 (See Alternative - Provider: Negra Will RN)1728 (Given - Provider: Negra Will, RN) 0530 (See Alternative - Provider: Laisha Davis, RN)1334 (See Alternative - Provider: Sonja Domingo, RN)1848 (See Alternative - Provider: Sarkis Serrato, KENNA) 0525 (See Alternative - Provider: Laisha Davis, RN)1411 (See Alternative - Provider: Sonja Domingo, RN) oxyCODONE (Roxicodone) immediate release tablet 5 mg(Linked Group 5) 5 mg, Oral, Every 4 hours PRN, severe pain (7-10), Starting on 03/20/25 at 2058 0916 (See Alternative - Provider: Negra Will RN)1331 (Given - Provider: Negra Will, KENNA)1728 (See Alternative - Provider: Negra Will RN) 0530 (Given - Provider: Laisha Davis, RN)1334 (Given - Provider: Sonja Domingo, RN)1848 (Given - Provider: Sarkis Serrato, KENNA) 0525 (Given - Provider: Laisha Davis, RN)1411 (Given - Provider: Sonja Domingo, RN) polyethylene glycol (PEG) 3350 (Miralax) packet 17 g 17 g, Oral, Daily PRN, constipation, Starting on 03/20/25 at 2058, 1st line for treatment of constipation - give scheduled if no bowel movement in past 24 hours. 1100 (Given - Provider: Sonja Domingo, KENNA) sodium chloride 0.9 % infusion 250 mL/hr, IntraVENous, Administer over 10 Minutes, As needed, For use in priming line prior to transfusion (prime via gravity) and flush line post transfusion, Starting on 03/22/25 at 0227, For 1 dose, For use in priming line prior to transfusion (prime via gravity) and flush line post transfusion ONLY. Discontinue once line has been cleared of remaining blood product. Linked Groups Order Group 1: Insulin Lispro (Humalog) injection 0-12 UnitsJump to med 0-12 Units, SubCUTAneous, 3 times daily with meals, First dose on Sat03/22/25 at 1200, Medium Dose Correction Algorithm Glucose: Dose: LESS than 150 No Insulin 150-199 2 Units 200-249 4 Units 250-299 6 Units 300-349 8 Units 350-400 10 Units Above 400 12 Units And Insulin Lispro (Humalog) injection 0-12 UnitsJump to med 0-12 Units, SubCUTAneous, Nightly, First dose on Sat03/22/25 at 2100, If eating or bolus tube feeding: Medium Dose Correction Algorithm Glucose: Dose: LESS than 150 No Insulin 150-199 2 Units 200-249 4 Units 250-299 6 Units 300-349 8 Units 350- 400 10 Units Above 400 12 Units Group 2: acetaminophen (Tylenol) tablet 650 mg (CANCELED)Jump to med 650 mg, Oral, Every 6 hours PRN, mild pain (1-3), fever, For temp greater than 100.4 F (38 C), Starting on 03/20/25 at 1817, Maximum dose of acetaminophen is 4000 mg from all sources in 24 hours. Or acetaminophen (Tylenol) suppository 650 mg (CANCELED) 650 mg, Rectal, Every 6 hours PRN, fever, For temp greater than 100.4 F (38 C), Starting on 03/20/25 at 1817, Administer if oral route cannot be used. Maximum dose of acetaminophen is 4000 mg from all sources in 24 hours. Group 3: HYDROmorphone (Dilaudid) injection 0.25 mgJump to med 0.25 mg, IntraVENous, Every 4 hours PRN, breakthrough, Starting on Sat03/22/25 at 2112, If oral and IV narcotics ordered, use oral first and only use IV if oral is ineffective or cannot take oral. Do Not give oral and IV within 1 hour of each other unless specifically ordered. Group 4: ondansetron ODT (Zofran-ODT) disintegrating tablet 4 mgJump to med 4 mg, Oral, Every 8 hours PRN, nausea, vomiting, Starting on 03/20/25 at 1817, 1st Line. If inadequate response within 60 minutes, proceed to next-line agent or contact provider if no further options ordered. Patient should allow tablet to dissolve on tongue. Do not remove from blister pack until just before administering. Or ondansetron (Zofran) injection 4 mgJump to med 4 mg, IntraVENous, Every 6 hours PRN, nausea, vomiting, Starting on 03/20/25 at 181, 1st Line. Give IV if patient is unable to take orally. If inadequate response within 60 minutes, proceed to next-line agent or contact provider if no further options ordered. Group 5: oxyCODONE (Roxicodone) immediate release tablet 2.5 mgJump to med 2.5 mg, Oral, Every 4 hours PRN, moderate pain (4-6), Starting on 03/20/25 at 2057 Or oxyCODONE (Roxicodone) immediate release tablet 5 mgJump to med 5 mg, Oral, Every 4 hours PRN, severe pain (7-10), Starting on 03/20/25 at 2057 FOR RECORDS PERTAINING TO PATIENTS WHO ARE OR HAVE BEEN ENROLLED IN A CHEMICAL DEPENDENCY/SUBSTANCEABUSE PROGRAM, SOME INFORMATION MAY BE OMITTED. This clinical summary was aggregated from multiple sources. Caution should be exercised in using it in the provision of clinical care. This summary normalizes information from multiple sources, and as a consequence, information in this document may materially change the coding, format and clinical context of patient data. In addition, data may be omitted in some cases. CLINICAL DECISIONS SHOULD BE BASED ON THE PRIMARY CLINICAL RECORDS. [employer] [facility]. provides no warranty or guarantee of the accuracy or completeness of information in this document.
== END ==
LOC: OLS.ACH 05:00
PROVIDERS: PCP Internal Medicine; Visit Provider Internal Medicine
DX: E11.65 Type 2 diabetes mellitus with hyperglycemia (principal)
CPT/HCPCS: 36415; 83036

== ENCOUNTER → 2025-06-04 05:00 | Outpatient (REF) | payer MEDICARE, OTHER, SELFPAY ==
[2025-06-04 10:38] LABS: Mucous, Urine 0 SEEN /hpf (<or=2+); Red Blood Cells-Urine 0 SEEN /hpf (0-5); Squamous Epithelial Cells - UA 0 SEEN /hpf (5-10)
[2025-06-04 11:13] LABS: Color, Urine Yellow (Yellow); Glucose, Dipstick Normal (Normal); Ketone-Dipstick Negative (Negative); Leukocyte Esterase-Dipstick 500 /ul (Negative); Nitrite-Dipstick Negative (Negative); Occult Blood-Urine 10 /ul (Negative); Protein-Dipstick 30 mg/dl (Negative); Specific Gravity, Urine 1.020 (1.002-1.030); Urine Bilirubin Dipstick Negative (Negative)
== END ==
LOC: OLS.ACH 05:00
PROVIDERS: PCP Internal Medicine; Visit Provider Internal Medicine
DX: A52.16 Charcot's arthropathy (tabetic) (principal)
CPT/HCPCS: 81001; 87077; 87086; 87088; 87186

== ENCOUNTER → 2025-06-07 04:00 | Outpatient (REF) | payer MEDICARE, OTHER, SELFPAY ==
[2025-06-07 09:06] LABS: Hematocrit 35.7 % (37-47); Hemoglobin 11.4 g/dL (12.0-15.0); Mean Corp Hgb Conc 31.9 g/dL (32-36); Mean Corpuscular Volume 93.2 fL (81-99); Mean Platelet Vol. 10.8 fl (6.2-12.0); Platelet Count 242 K/mm3 (150-450); RBC Distribution Width CV 16.6 % (11.6-14.6); RBC Distribution Width SD 56.0 fl (35.1-43.9); Red Blood Count 3.83 M/mm3 (4.2-5.4); White Blood Count 13.3 K/mm3 (4.4-11.0)
[2025-06-07 09:14] LABS: Anion Gap 12 (5-15); BUN 48 mg/dL (4-19); BUN/Creat Ratio 36.7 RATIO (10-20); Calcium,Total 8.7 mg/dL (7.6-11.0); Carbon Dioxide 23.5 mmol/L (21.0-32.0); Chloride 101 mmol/L (98-108); Glucose 120 mg/dL (70-99); Potassium 3.9 mmol/L (3.3-5.1)
== END ==
LOC: OLS.ACH 04:00
PROVIDERS: PCP Internal Medicine; Referring Provider Internal Medicine; Visit Provider Internal Medicine
DX: I12.9 Hypertensive chronic kidney disease with stage 1 through stage 4 chronic kidney disease, or unspecified chronic kidney disease (principal); Z87.440 Personal history of urinary (tract) infections
CPT/HCPCS: 36415; 80048; 85027

== ENCOUNTER → 2025-06-23 05:00 | Outpatient (REF) | payer MEDICARE, OTHER, SELFPAY ==
--- OUTSIDE RECORDS SUMMARY | 2025-06-23 04:37 | XMS RPT_ITS | CCD ---
Author Organization [facility] CliniSys[facility] Care Team Providers Care Service Girl Name Role Phone Zandra Phan Unavailable Unavailable Jalil Cuevas Unavailable Unavailable Roca Samuel Unavailable Unavailable Martita Navarro Unavailable Unavailable Lisy Pace Primary Care Provider Zandra Phan RN Unavailable Unavailable Jalil Cuevas RN Unavailable Unavailable Roca PT, Samuel Unavailable Unavailable Martita Ruvalcaba Unavailable Chava Pace MD, Lisy Condon Primary Care Provider [phone] Zandra Phan RN Unavailable Unavailable Jalil Cuevas RN Unavailable Unavailable Roca PT, Samuel Unavailable Unavailable Ramon MARINOCred, Martita Posada Unavailable Chava Roca PT, Samuel Unavailable Unavailable Sanjeev MYERS, Lisy Condon Primary Care Provider Unavailable Primary Care Provider UnavailZandra Eric RN Unavailable Unavailable Jalil Cuevas RN Unavailable Unavailable Roca PT, Samuel Unavailable Unavailable Martita Ruvalcaba Unavailable Chava Pace MD, Lisy Condon Primary Care Provider Zandra Phan RN Unavailable Unavailable Jalil Cuevas RN Unavailable Unavailable Roca PT, Samuel Unavailable Unavailable Martita Ruvalcaba Unavailable Chava Pace MD, Lisy Condon Primary Care Provider LISY PACE Primary Care Unavailable NADER RAY Attending Unavailable NADER RAY Attending Unavailable LISY PACE Primary Care Unavailable NADER RAY Attending Unavailable LISY PACE Primary Care Unavailable LE, NADER RAI Attending Unavailable PACE, LISY ALEXX Primary Care Unavailable LE, NADER RAI Attending Unavailable PACE, LISY ALEXX Primary Care Unavailable LE, NADER RAI Attending Unavailable PACE, LISY ALEXX Primary Care Unavailable PACE, LISY ALEXX Primary Care Unavailable LE, NADER RAI Attending Unavailable LE, NAMCHI ARRINGTON KHAC Attending Unavailable PACE, LISY ALEXX Primary Care Unavailable LE, NADER RAI Attending Unavailable PACE, LISY ALEXX Primary Care Unavailable PACE, LISY ALEXX Primary Care Unavailable LE, NADER RAI Attending Unavailable LE, AYSECHI BONNIE RAI Attending Unavailable PACE, LISY ALEXX Primary [...] Unavailable PACE, LISY ALEXX Primary Care Unavailable LENADER Attending Unavailable PACE, LISY ALEXX Referring Unavailable PACE, LISY ALEXX Primary Care Unavailable PACE, LISY ALEXX Referring Unavailable PACE, LISY ALEXX Primary Care Unavailable LE, NADER RAI Attending Unavailable PACE, LISY ALEXX Primary Care Unavailable PACE, LISY ALEXX Primary Care Unavailable LE, NADER RAI Attending Unavailable PACE, LISY ALEXX Primary Care Unavailable LE, NADER RHODESAC Attending Unavailable LE, AYSECHI ARRINGTON CARMELOAC Attending [...] Primary Care Unavailable Unavailable [facility] [phone] [facility] Primary Care Unavailable JENNIFER WALDROP Attending Unavailable [facility] Primary Care Unavailable JENNIFER WALDROP Attending Unavailable [facility] Primary Care Unavailable JENNIFER WALDROP Attending Unavailable DAMIAN LOZA Attending Unavailable [facility] Primary Care Unavailable [facility] Referring Unavailable KRAIG WRIGHT Attending Unavailable ASHLEIGH ROSS Consulting Unavailable SHANE RODRIGUEZ Attending Unavailable KAROLINA COOPER Admitting Unavailable [facility] Primary Care Unavailable YOHANNES BRITTON Consulting Unavailable DENY BARTON Attending Unavailable PATEL CAN Admitting Unavailable [facility] Primary Care Unavailable [facility] Primary Care Unavailable MARIELOS BLAIR Attending Unavailable [facility] Primary Care Unavailable NALLELY ALAS Attending Unavailable [facility] Primary Care Unavailable NALLELY ALAS Attending Unavailable [facility] Primary Care Unavailable NALLELY ALAS Attending Unavailable [facility] Primary Care Unavailable NALLELY ALAS Attending Unavailable [facility] Primary Care Unavailable JENNIFER WALDROP Attending Unavailable [facility] Primary Care Unavailable PRISCILA LAGUERRE Attending Unavailable NALLELY ALAS Attending Unavailable NALLELY ALAS Consulting Unavailable HERMAN PEPPER Attending Unavailable NAGINENI, FISH Admitting Unavailable DEMETRIO SHAHID Consulting Unavailable MARCELA, ELNORA Primary Care Unavailable NALLELY ALAS Attending Unavailable MARCELA, ELNORA Primary Care Unavailable JENNIFER WALDROP Attending Unavailable MARCELA, ELNORA Primary Care Unavailable JENNIFER WALDROP Attending Unavailable ROXY AGUILAR Attending Unavailable NBA GORMAN Consulting Unavailable PATEL CAN Admitting Unavailable MARCELA, ELNORA Primary Care Unavailable BRICE MOTA Attending Unavailable JANET HOUSTON Admitting Unavailable MARCELA, ELNORA Primary Care Unavailable LAUREN CASTANON Referring Unavailable MARIELOS BLAIR Attending Unavailable Deperro Sr., Prasanna Primary Care Unavailable Deperro OLS, Prasanna Attending Unavailable Deperro OLS, Prasanna Attending Unavailable Deperro OLS, Prasanna Attending Unavailable Deperro OLS, Prasanna Attending Unavailable Deperro OLS, Prasanna Attending Unavailable Deperro OLS, Prasanna Referring Unavailable Deperro OLS, Prasanna Attending Unavailable Deperro Sr., Prasanna Primary Care Unavailable Deperro OLS, Prasanna Attending Unavailable Spenser Grande Attending Unavailable Deperro Sr., Prasanna Primary Care Unavailable Deperro OLS, Prasanna Attending Unavailable Deperro Sr., Prasanna Primary Care Unavailable Aida MYERS, Prasanna Attending Physician Unavailable Harjinder MYERS, Dr. Dueñas Attending Physician Dr. Spenser Grande MD Emergency Department Physician Deperro Sr. DO, Dr. Mims Primary Care Physician Aida MYERS, Prasanna Referring Provider Unavailable Allergies Allergy Classification Reported Allergen(s) Allergy Type Date of Onset Reaction(s) Facility Adhesive Tape (2 sources) Adhesive Tape Substance Allergy 09-24-2017 [email or web address] (20 sources) Adhesive Tape; Translations: [ADHESIVE TAPE] Propensity to adverse reactions to drug 09-24-2017 [employer] (20 sources) Adhesive Tape Drug Allergy 09-24-2017 [facility] Medications Current Medications Medication Drug Class(es) Dates Sig (Normalized) Sig (Original) acetaminophen 325 mg oral capsule (20 sources) Start: 05-31-2025 take 2 capsules by mouth three times daily Start: 03-22-2025 End: 03-24-2025 1,000 mg, Oral, 3 times chrissy y, First dose on Sat03/22/25 at 2115, Maximum [...] Start: 11-10-2023 take 1 tablet by pavel every four hours as needed acetaminophen (TYLENOL) tablet 650 mg Start: 10-16-2020 take 1 tablet by pavel th every four hours as needed 650 mg, Oral, EVERY 4 HOURS PRN, Starting 10/16/20 at 0257, Until Discontinued, Mild Pain, Headache Start: 11-04-2017 take 2 tablets by mo [facility] every four hours as needed acetaminophen (TYLENOL) 325 mg tablet Take 2 Tabs by mouth every 4 hours as needed. 60 Tab 0 11/04/2017 Active acetaminophen 325 mg / HYDROcodone bitartrate 5 mg oral tablet (9 sources) Opioid Agonist Start: 10-18-2023 take 1 tablet by mouth every eight hours as needed for pain HYDROcodone-acetaminophen (NORCO) 5-325 mg tablet Indications: Acute pain of right shoulder Take 1 Tab by mouth every 8 hours as needed for Pain 21 Tab 0 10/18/2023 Active acetaminophen 325 mg / oxyCODONE hydrochloride 5 mg oral tablet (1 source) Opioid Agonist Start: 10-19-2020 take 1 tablet by mouth every six hours as needed oxyCODONE-acetaminophen (PERCOCET) 5-325 mg tablet 1 Tab apixaban 5 mg oral tablet (20 sources) Factor Xa Inhibitor Start: 05-31-2025 take 1 tablet by mouth twice daily Start: 03-21-2025 End: 03-24-2025 take 5 mg by mouth twice daily 5 mg, Oral, 2 times nikia ly, First dose on Sat03/21/25 at 2100, Anticoagulant Start: 03-13-2025 End: 03-15-2025 take 5 mg by mouth twice daily 5 mg, Oral, 2 times nikia ly, First dose on Sat03/13/25 at 0020, Anticoagulant Start: 01-26-2025 End: 02-02-2025 take 5 mg by mouth twice daily 5 mg, Oral, 2 times nikia ly, First dose on Sat01/26/25 at 1000, Anticoagulant Start: 12-03-2024 End: 12-05-2024 take 5 mg by mouth twice daily 5 mg, Oral, 2 times nikia ly, First dose on Sat12/03/24 at 0900, Anticoagulant Start: 10-07-2020 End: 09-24-2024 take 5 mg by mouth twice daily 5 mg, Oral, 2 times nikia ly, First dose on Sat09/18/24 at 2100, Anticoagulant atorvastatin 20 mg oral tablet (20 sources) HMG-CoA Reductase Inhibitor Start: 05-31-2025 take 1 tablet by mouth once daily Start: 09-16-2023 End: 02-02-2025 take 40 mg by mouth once daily 40 mg, Oral, Daily, Fir st dose on Sat12/03/24 at 0900 Start: 06-17-2019 End: 03-24-2025 take 20 mg by mouth once daily 20 mg, Oral, Nightly, F irst dose on 03/20/25 at 2100 Atropine (1 source) Anticholinergic, Cholinergic Muscarinic Antagonist [...] Active Start: 12-09-2021 take 1 capsule by [facility] twice daily cephalexin (KEFLEX) 500 mg capsule [...] ml addEASE (1 source) Start: 10-18-2020 diltiazem (CAR DIZEM) 125 mg in 0.9% NaCl 125 ml addEASE docusate sodium 50 mg / sennosides, residential 8.6 mg oral tablet (2 sources) Start: 05-31-2025 Start: 10-16-2020 take 2 tablets by mo [facility] at bedtime 2 Tab, Oral, AT BEDTIME, First dose on 10/16/20 at 2200, Until Discontinued doxycycline hyclate 100 mg oral capsule (4 sources) Tetracycline-class Drug Start: 11-12-2023 End: 11-22-2023 take 1 capsule by mouth every twelve hours doxycycline (VIBRAMYCIN) 100 mg capsule Take 1 Cap by mouth every 12 hours for 10 days 20 Cap 0 11/12/2023 11/22/2023 Active Start: 11-11-2023 doxycycline MO NOhydrate (MONODOX) capsule 100 mg DULoxetine 30 mg delayed release oral capsule (1 source) Serotonin and Norepinephrine Reuptake Inhibitor Start: 05-31-2025 take 1 capsule by mouth twice daily empagliflozin 10 mg oral tablet (20 sources) [...] 1 tablet by mouth once daily FOLIC ACID/MULTIVIT-LA N/LUTEIN (CENTRUM SILVER ORAL) Take 1 Tab by mouth daily. Active take 1 tablet by mouth once chrissy y FOLIC ACID/MULTIVIT-MIN/LUTEIN (CENTRUM SILVER ORAL) Take 1 Tab by mouth daily. 0 Suspended take 1 tablet by mouth once chrissy y FOLIC ACID/MULTIVIT-MIN/LUTEIN (CENTRUM SILVER ORAL) Take 1 Tab by mouth daily. 0 Active gabapentin 300 mg oral capsule (20 sources) Anti-epileptic Agent Start: 05-31-2025 take 1 capsule by mouth twice daily Start: 03-20-2025 End: 03-24-2025 take 300 mg by mouth twice daily 300 mg, Oral, 2 times daily, First dose on 03/20/25 at 2100 Start: 03-13-2025 End: 03-15-2025 take 300 mg by mouth twice daily 300 mg, Oral, 2 times daily, First dose on Sat 2/25 at 0020 Start: 01-26-2025 End: 02-02-2025 take [...] 2350, For 1 dose Start: 02-14-2021 End: 09-24-2024 take 300 mg by mouth twice daily 300 mg, Oral, 2 times daily, First dose on Sat09/18/24 at 2100 Start: 05-03-2020 take 1 capsule by [facility] three times daily gabapentin (NEURONTIN) 300 mg capsule Indications: Neuropathic Pain , Postoperative Acute Pain Take 1 Cap by mouth three times a day 270 Cap 1 05/03/2020 Active Start: 06-17-2019 take 1 capsule by [facility] three times daily gabapentin (NEURONTIN) 300 mg capsule Indications: Neuropathic Pain , Postoperative Acute Pain Take 1 Cap by mouth three times a day 270 Cap 1 06/17/2019 Active glucagon (rdna) 1 mg injecti on (15 sources) Antihypoglycemic Agent Start: 05-31-2025 Start: 03-20-2025 End: 03-24-2025 Start: 03-13-2025 End: [...] Starting 10/16/20 at 0257, Until Discontinued, hypoglycemia [employer]IV[employer]GES TAG/STIC KER (20 sources) Start: [...] Active 3 ml insulin degludec 100 unt/ml pen injector (20 sources) Insulin Analog Start: Start: 09-24-2024 End: 09-24-2025 insulin degludec (Tresiba Fl exTouch) 100 UNIT/ML injection Inject 30 Units under the skin Nightly. 30 mL 3 09/24/2024 12/05/2024 Discontinued (Stop taking at discharge) Start: 09-23-2024 End: 09-23-2024 insulin degludec (Tresiba Fl exTouch) 100 UNIT/ML injection Inject 26 Units under the skin Nightly. 3 mL 12 09/23/2024 09/23/2024 Discontinued (Stop taking at discharge) 3 ml insulin degludec 100 unt/ml / liraglutide 3.6 mg/ml pen injector (4 sources) Insulin Analog, GLP-1 Receptor Agonist insulin degludec-liraglutide (Xultophy) 100-3.6 UNIT-MG/ML pen Inject [...] Units under the skin Nightly. 10 mL 12/05/2024 03/15/2025 Discontinued Start: 12-04-2024 End: 12-05-2024 [...] Nightly, First dose (after last modification) on Sat09/21/24 at 2099 Start: 09-19-2024 End: 09-21-2024 inject 20 [IU] by subcutaneous injection once daily 20 Units, SubCUTAneous, Nightly, First dose (after last modification) on Sat09/19/24 at 2099 Start: 09-18-2024 End: 09-19-2024 inject 15 [IU] by subcutaneous injection once daily 15 Units, SubCUTAneous, Nightly, First dose on Sat09/18/24 at 2099 Start: 09-17-2024 End: 09-17-2024 inject 5 [IU] by subcutaneous injection once 5 Units, SubCUTAneous, Once, On Renee 09/17/24 at 1530, For 1 dose Start: 11-11-2023 insulin glargi ne (LANTUS) Subcutaneous INJ 25 Units Start: 11-10-2023 End: 11-11-2023 inject 20 [IU] by subcutaneous injection once daily 20 Units, Subcutaneous, DAILY, First dose on Sat11/10/23 at 1910, Until Discontinued Start: 10-20-2020 insulin glargi ne (LANTUS) Subcutaneous INJ 12 Units Start: 10-17-2020 End: 10-20-2020 insulin glargine (LANTUS) Subcutaneous INJ 5 Units insulin lispro 100 unt/ml in jectable solution (20 sources) Insulin Analog Start: 05-31-2025 Start: 01-26-2025 End: 02-01-2026 inject 8 [IU] [...] meals, First dose (after last modification) on 09/21/24 at 1200 Start: 09-19-2024 End: 09-21-2024 inject 8 [IU] by subcutaneous injection three times daily at mealtime 8 Units, SubCUTAneous, 3 times daily with meals, First dose (after last modification) on 09/19/24 at 0800 Start: 11-12-2023 End: 11-12-2023 insulin lispro (HumaLOG) injection 20 Units Start: 11-11-2023 insulin lispro (HumaLOG) injection 3 Units Start: 11-10-2023 End: 11-10-2023 insulin lispro (HumaLOG) injection 11 Units Start: 11-10-2023 0-9 Units, Sub cutaneous, THREE TIMES A DAY WITH MEALS, HS & 0200, First dose on 11/10/23 at 2200, Until Discontinued Start: 10-16-2020 0-5 Units, Sub cutaneous, THREE TIMES A DAY WITH MEALS AND AT BEDTIME, First dose on 10/16/20 at 0800, Until Discontinued isopropyl alcohol 0.7 ml/ml medicated pad (20 sources) Start: 09-23-2024 Alcohol Swabs (Alcohol Prep) 70 % pads 1 Pad 3 times daily. 200 each 2 09/23/2024 Active L. Ubfdxrdbq-A-Obed-Elderb erry (Culturelle Immune Defense) 10 billion cell -90 mg-3 mg tablet,chewable (1 source) Start: 05-31-2025 take 10 tablets by mouth once daily levothyroxine sodium 0.112 mg oral tablet (20 sources) l-Thyroxi ne Start: 05-31-2025 take 1 tablet by mouth once daily Start: 03-21-2025 End: 03-24-2025 take 25 ug by mouth once daily before breakfast 25 mcg, Oral, Daily before breakfast, First dose on 03/21/25 at 0600 Start: 03-13-2025 End: 03-15-2025 take 112 ug by mouth once daily before breakfast 112 mcg, Oral, Daily before breakfast, First dose on 03/13/25 at 0600 Start: 01-27-2025 End: 02-02-2025 take 112 ug by mouth once daily before breakfast 112 mcg, Oral, Daily before breakfast, First dose on 01/27/25 at 0600 Start: 12-03-2024 End: 12-05-2024 take [...] by mouth every morning (before breakfast). Active magnesium hydroxide 80 mg/ml oral suspension (1 source) Start: 05-31-2025 take 1 mL by mouth o nce daily as needed for constipation melatonin 3 mg oral capsule (12 sources) Start: 05-31-2025 take 1 capsule by mo uth at bedtime as needed for sleep Start: 03-22-2025 End: 04-23-2025 take 1 tablet by mouth once daily as needed for sleep melatonin 3 MG tablet Take 1 tablet (3 mg) by mouth Nightly as needed for sleep. 30 tablet 03/24/2025 04/23/2025 Active Start: 03-13-2025 End: 03-15-2025 Start: 12-03-2024 End: 12-05-2024 take 3 mg by mouth once daily as needed for sleep 3 mg, Oral, Nightly PRN, sleep, Starting on Renee 12/03/24 at 1719 Start: 09-21-2024 End: 09-24-2024 take 3 mg by mouth once daily as needed for sleep 3 mg, Oral, Nightly PRN, sleep, Starting on 09/21/24 at 1332 menthol 0.05 mg/mg topical g el (1 source) Start: 05-31-2025 metFORMIN hydrochloride 500 mg oral tablet (20 sources) Biguanide Start: 05-31-2025 take 1 tablet by pavel once daily Start: 09-23-2024 End: 09-24-2024 take 2 tablets [...] before meals 360 Tab 3 06/17/2019 Active methenamine 162 mg / sodium salicylate 162.5 mg oral tablet (1 source) Start: 05-31-2025 take 162-162.5 mg by mouth once daily 24 hr metoprolol succinate 50 mg extended release oral tablet (20 sources) beta-Adrenergic Roxi Start: 03-24-2025 End: 03-24-2026 take 1 tablet by mouth twice daily Start: 03-21-2025 End: 03-24-2025 take 1 tablet [...] 2 times d aily, First dose on 03/20/25 at 2100 Start: 03-13-2025 End: 03-15-2025 Start: 03-12-2025 take 25 mg by mouth once 25 mg , Oral, Once, On Sat03/12/25 at 1635, For 1 dose Start: 01-26-2025 End: 02-02-2025 take 5 mg intravenously every six hours as needed 5 mg, IntraVENous, Every 6 hours PRN, tachycardia, sustained HR >130, Starting on Sat01/26/25 at 1240 Start: 01-25-2025 End: 01-26-2025 5 mg, IntraVENous, Every 5 m in PRN, tachycardia, Starting on Sat01/25/25 at 2355, For 3 doses Start: 12-03-2024 End: 12-03-2024 5 mg, IntraVENous, Once, On Sat12/03/24 at 0315, For 1 dose Start: 10-18-2020 End: 10-18-2020 metoprolol tartrate (LOPRESS OR) intravenous solution 2.5 mg ondansetron (ZOFRAN ODT) RAPID DISSOLVING tablet 4 mg (2 sources) Start: 11-10-2023 take 1 tablet by mouth every six hours as needed ondansetron (ZOFRAN ODT) RAPID DISSOLVING tablet 4 mg Start: 10-16-2020 take 1 tablet by pavel th every six hours as needed ondansetron (ZOFRAN ODT) RAPID DISSOLVING tablet 4 mg 24 hr oxybutynin chloride 5 mg extended release oral tablet (20 sources) Cholinergic Muscarinic Antagonist Start: 05-31-2025 take 1 tablet by mouth once daily Start: 11-11-2023 take 10 mg by mouth once daily 10 mg, Oral, DAILY, First dose on Sat11/11/23 at 0900, Until Discontinued Start: 07-25-2023 take 1 tablet by pavel th once [...] 5 MG tablet Take by mouth. Active oxyCODONE hydrochloride 5 mg oral tablet (20 sources) Opioid Agonist Start: 03-24-2025 End: 03-29-2025 take 0.5 tablet by mouth every four hours as needed for pain oxyCODONE (Roxicodone) 5 MG immediate release tablet Indications: Closed fracture of left hip, initial encounter ([facility]) Take 0.5 tablets (2.5 mg) by mouth every 4 hours as needed for moderate pain (4-6) for up to 5 days. 15 tablet 03/24/2025 03/29/2025 Active Start: 03-20-2025 End: 03-24-2025 take 1 tablet by mouth every four hours as needed for pain oxyCODONE (Roxicodone) immediate release tablet 2.5 mg Start: 10-21-2020 take 2 tablets by mo uth every six hours as needed oxyCODONE (ROXICODONE) 5 mg tablet Indications: Pain Take 2 Tab by mouth every 6 hours as needed 12 Tab 0 10/21/2020 Active Semaglutide (1 source) Start: 05-31-2025 semaglutide (Ozempic) 2 MG/3ML solution pen-injector (20 sources) Start: 12-24-2024 End: 12-24-2025 inject 0.5 mg by subcutaneous injection every week semaglutide (Ozempic) 2 MG/3ML solution pen-injector Inject 0.5 mg under the skin 1 (one) time per week. 3 mL 11 12/24/2024 12/24/2025 Suspended Start: 12-24-2024 End: 12-24-2025 inject 0.5 mg by subcutaneous injection every week semaglutide (Ozempic) 2 MG/3ML solution pen-injector Inject 0.5 mg under the skin 1 (one) time per week. 3 mL 12/24/2024 12/24/2025 Active LEMUS PROBIOTIC capsule (1 source) Start: 05-31-2025 take 1 capsule by mouth once daily terbinafine 250 mg oral tablet (15 sources) Allylamine Antifungal Start: 06-28-2021 take 1 tablet by mouth once daily terbinafine HCL (LAMISIL) 250 mg tablet Take 1 Tab by mouth daily 5 Tab 1 06/28/2021 Active vitamin b12 1 mg oral capsule (6 sources) Vitamin B12 Start: 05-31-2025 take 1 capsule by mouth once daily Start: 03-24-2025 End: 04-23-2025 take 1 tablet by mouth once daily cyanocobalamin (Vitamin B-12) 1000 MCG tablet Take 1 tablet (1,000 mcg) by mouth daily. 30 tablet 03/24/2025 04/23/2025 Active Vitamin D3-Vitamin K2 250 mc g (10,000 unit)-45 mcg capsule (1 source) Start: 05-31-2025 take 1 capsule by [facility] once daily Completed/Discontinued Medications Medication Drug Class(es) Dates Sig (Normalized) Sig (Original) 20 ml albumin human, residential 250 mg/ml injection (4 sources) Human Serum [...] 0 951, For 1 dose, Trung Orellana: cabinet override amLODIPine 5 mg oral tablet (20 [...] sodium chloride 0.9 % 100 mL IVPB (Add-[place]) (2 sources) Start: 01-27-2025 End: 02-02-2025 take 3000 mg intravenously every six hours 3,000 mg, IntraVENous, at 200 mL/hr, Administer over 30 Minutes, Every 6 hours, First dose on Sat01/27/25 at 1315, For 26 doses, ADD-[place] bag, Suspected Indication (Select all that apply): Surgical Site Infection aspirin 81 mg delayed release oral tablet (20 sources) Platelet Aggregation Inhibitor, Nonsteroidal Anti-inflammator y Drug Start: 10-16-2020 End: 10-18-2020 take 81 [...] Start: 10-17-2020 take 1 tablet by pavel every twelve hours atenoloL (TENORMIN) 25 mg tablet Indications: hypertension , Ventricular Rate Control in Atrial Fibrillation Take 1 Tab by mouth every 12 hours 60 Tab 1 10/21/2020 Active Start: 06-17-2019 End: 12-05-2024 take 50 mg by mouth twice daily 50 mg, Oral, 2 times d aily, First dose on Renee 12/03/24 at 0315 5 ml bupivacaine hydrochloride 5 mg/ml injection (2 sources) Amide Local Anesthetic Start: 03-20-2025 End: 03-20-2025 10 mL, Other, Once, On 03/20/25 at 1400, For 1 dose, Infiltration calcium chloride 0.0014 meq/ml / potassium chloride 0.004 meq/ml / sodium chloride 0.103 meq/ml / sodium lactate 0.028 meq/ml injectable solution (13 sources) Start: 03-21-2025 End: 03-21-2025 500 mL, IntraVENous, at 250 mL/hr, Administer over 2 Hours, Once, On 03/21/25 at 1845, For 1 dose Start: 03-21-2025 End: 03-22-2025 take 75 mL intravenously every hour 75 mL/hr, IntraVENous, Continuous, Starting on [place] 03/21/25 at 1845, For 1 day Start: 03-21-2025 End: 03-21-2025 IntraVENous, Continuous PRN, Starting on [place] 03/21/25 at 0746, Anesthesia Intraprocedure Start: 03-20-2025 End: 03-20-2025 1,000 mL, IntraVENous, at 50 0 mL/hr, Administer over 2 Hours, Once, On 03/20/25 at 1515, For 1 dose Start: 09-17-2024 End: 09-17-2024 1,000 mL, IntraVENous, at 50 0 mL/hr, Administer over 2 Hours, Once, On Renee 09/17/24 at 1310, For 1 dose Start: 10-16-2020 End: 10-16-2020 1,000 mL, Intravenous, ONCE, 1 dose, [place] 10/16/20 at 0305, at 500 mL/hr ceFAZolin 1000 mg injection (2 sources) Cephalosporin Antibacterial Start: 03-21-2025 End: 03-21-2025 IntraVENous, As needed, Starting on [place] 03/21/25 at 0800, Anesthesia Intraprocedure Start: 11-11-2023 ceFAZolin (ANC EF) 2 g in Dextrose 50 ml IVPB (PREMIX) ceFAZolin (Ancef) 2,000 mg in sodium chloride 0.9 % 100 mL IVPB (2 sources) Start: 03-21-2025 End: 03-21-2025 take 2000 mg intravenously every eight hours 2,000 mg, IntraVENous, at 200 mL/hr, Administer over 30 Minutes, Every 8 hours, First dose on 03/21/25 at 1600, For 24 hours, Phase II/On [...] Minutes, Every 24 hours, First dose on 09/19/24 at 1800, Mini-Bag Plus bag, Suspected Indication [...] needed, low b lood sugar, Starting on Sat09/17/24 at 1309, If blood glucose less than [...] IntraVENous, As needed, Starting on 03/21/25 at 0747, Anesthesia Intraprocedure 0.5 ml dulaglutide 3 mg/ml auto-injector (20 [...] every week ergocalciferol (Vitamin D2) 1.25 MG (59010 UT) capsule Take 1 capsule (1.25 mg) [...] 145 mg, Oral, DAILY, First dose on 10/16/20 at 0900, Until Discontinued Start: 06-17-2019 End: 02-02-2025 160 mg, Oral, Daily, First d ose on Sat12/03/24 at 0900, Substituted for Fenofibrate (Non-Formulary Dose). fluticasone propionate 0.05 mg/actuat metered dose nasal spray (20 sources) Corticosteroid Start: 10-16-2020 take 2 spray(s) nasal route once daily 2 [place], Each Nostril, DAILY, First dose on 10/16/20 at 0900, Until Discontinued gadopiclenol (Vueway) injection 10 mL (2 sources) [...] breakfast). 09/24/2024 Discontinued (Stop taking at discharge) 50 ml glucose 50 mg/ml injec tion [...] Carb, Ora l, PRN- NEEDED, Starting on [place] 11/10/23 at 1901, Until Discontinued, other, hypoglycemia Start: 11-10-2023 5-12.5 g, IV P ush, PRN- NEEDED, Starting on Sat11/10/23 at 1901, Until Discontinued, other, hypoglycemia Start: 10-16-2020 37.5 g, Oral, PRN- NEEDED, Starting [place] 10/16/20 at 0257, Until Discontinued, other, hypoglycemia Start: 10-16-2020 5-12.5 g, IV P ush, PRN- NEEDED, Starting [place] 10/16/20 at 0257, Until Discontinued, other, hypoglycemia [...] hour of each other unless specifically ordered. Insulin Lispro (Humalog) injection 0-12 Units (2 [...] Renee 09/17/24 at 1310, For 1 dose iopamidol [...] 4 tablet, Oral, Daily, First dose on Sat03/20/25 at 1830 Start: 02-02-2025 take 4 tablets by mo [facility] once daily Lactobacillus 0.05-0.05 MG tablet Take 4 tablets by mouth daily. 02/02/2025 Suspended Start: 02-02-2025 take 4 tablets by mo mth once daily Lactobacillus 0.05-0.05 MG tablet Take 4 tablets by mouth daily. 02/02/2025 Active Start: 01-26-2025 End: 02-02-2025 take 4 tablets by mouth once daily 4 tablet, Oral, Daily, First dose on Sat01/26/25 at 1115 10 ml lidocaine hydrochloride 20 mg/ml injection [...] topically once Topical, ONCE, 1 dose, [facility] 03/05/24 at 1335 Start: 01-30-2024 End: 01-30-2024 apply 1 dose topically once Topical, ONCE, 1 dose, [facility] 01/30/24 at 1400 Start: 01-23-2024 End: 01-23-2024 apply 1 dose topically once Topical, ONCE, 1 dose, On [facility] 01/23/24 at 1345 Start: 01-09-2024 End: 01-09-2024 [...] Starting on 03/21/25 at 0750, Anesthesia Intraprocedure ondansetron ODT (Zofran-ODT) [...] ondansetron ODT (Zofran-ODT) disintegrating tablet 4 mg Phenylephrine HCl (Pressors) 1 MG/10ML injection (1 [...] and Soft Tissue Infection polyethylene glycol 3350 00700 mg powder for oral solution (10 sources) [...] End: 02-02-2025 40 mEq, Oral, Once, On Sat02/02/25 at [...] Starting on Sat03/21/25 at 0750, Anesthesia Intraprocedure sodium bicarbonate 75 [...] mL/hr, Administer over 1 Hours, Once, On Sat09/17/24 at 1220, For 1 dose Start: 11-10-2023 [...] times daily before meals, First dose on 09/19/24 at 0700, Substituted for oxybutynin (DITROPAN); fesoterodine [...] te Episodic/Chronic Acute and unspecified renal failure (1 source) Prerenal azotemia; Translations: [Unspecified kidney failure] 06-08-2025 Chronic Acute and unspecified renal failure (15 sources) [...] 03-20-2025 Episodic Genitourinary symptoms and ill-defined conditions (3 sources) Urgency of urination; Translations: [Personal history of urinary (tract) infections] Onset: 05-22-2024 Episodic Hypertension with complications and secondary hypertension (1 source) Hypertensive chronic kidney disease with stage 1 through stage 4 chronic kidney disease, or unspecified chronic kidney disease; Translations: [Hypertensive chronic kidney disease with stage 1 through stage 4 chronic kidney disease, or unspecified chronic kidney disease] Onset: 06-15-2025 Chronic Malaise and fatigue (1 source) Asthenia; Translations: [Weakness] Episodic Nonspecific chest pain (1 source) Precordial pain; Translations: [Precordial pain] Episodic Osteoarthritis (20 sources) Arthritis; Translations: [Unspecified osteoarthritis, unspecified site] Onset: 11-09-2016 05-15-2019 Chronic Osteoporosis (6 sources) Osteoporosis; Translations: [Age-related osteoporosis without current pathological fracture] Onset: 03-20-2025 03-24-2025 Chronic Other aftercare (1 source) Long-term current use of anticoagulant; 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] 06-08-2025 Episodic Other connective tissue disease (2 sources) Bilateral calf pain; Translations: [Pain in right lower leg] 01-27-2025 Episodic Other connective tissue disease (1 source) Neurological finding; Translations: [Unspecified symptoms and signs involving the nervous system] 06-08-2025 Episodic Other endocrine disorders (1 source) Hypoglycemia; Translations: [Hypoglycemia, unspecified] 06-08-2025 Chronic Other injuries and conditions due to external [...] vascular disease, unspecified] Onset: 02-14-2021 02-14-2021 Chronic Residual codes; unclassified (1 source) Altered mental status, unspecified; Translations: [Altered mental status, unspecified] Onset: 06-11-2025 Episodic Skin and subcutaneous tissue infections (1 source) [...] fibrillation, unspecified; Translations: [Chronic atrial fibrillation, unspecified ([facility])] Onset: 03-12-2025 Past or Other Problems Problem [...] 10-25-2017 10-25-2017 Episodic Other aftercare (2 sources) 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; Translations: [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0500, L500.2500 ####[facility] [address] [place], [address] Calcium [Mass/Vol] 8.7 mg/dL Normal 7.6-11.0 [facility] Comment on above: Order Comment: 304.1 Performed By: #### L 100.0500, L500.2500 ####[facility] [address] [place], [address] Chloride [Moles/Vol] 101 mmol/L Normal 98-108 [facility] Comment on above: Order Comment: 304.1 Performed By: #### L 100.0500, L500.2500 ####[facility] [address] [place], [address] CO2 [Moles/Vol] 23.5 mmol/L Normal 21.0-32.0 [facility] Comment on above: Order Comment: 304.1 Performed By: #### L 100.0500, L500.2500 ####[facility] [address] [place], [address] Creatinine [Mass/Vol] 1.30 mg/dL High 0.70-1.20 [facility] Comment on above: Order Comment: 304.1 Performed By: #### L 100.0500, L500.2500 ####[facility] [address] [place], [address] GAP 12 Normal 5-15 [facility] Comment on above: Order Comment: 304.1 Performed By: #### L 100.0500, L500.2500 ####[facility] [address] [place], [address] GFR/1.73 sq M.predicted among non-blacks MDRD (S/P/Bld) [Vol rate/Area] 40 mL/min/{1.73_m2} Low >60 [facility] Comment on above: Order Comment: 304.1 Result Comment: mL/m in/1.73m2 CKD-EPI Creatinine Equation (2020) Performed By: #### L 100.0500, L500.2500 ####[facility] [address] [place], [address] Glucose [Mass/Vol] 120 mg/dL High 70-99 [facility] Comment on above: Order Comment: 304.1 Performed By: #### L 100.0500, L500.2500 ####[facility] [address] [place], [address] Potassium [Moles/Vol] 3.9 mmol/L Normal 3.3-5.1 [facility] Comment on above: Order Comment: 304.1 Performed By: #### L 100.0500, L500.2500 ####[facility] [address] [place], [address] Sodium [Moles/Vol] 136 mmol/L Normal 133-145 [facility] Comment on above: Order Comment: 304.1 Performed By: #### L 100.0500, L500.2500 ####[facility] [address] [place], [address] Urea nitrogen [Mass/Vol] 48 mg/dL High 4-19 [facility] Comment on above: Order Comment: 304.1 Performed By: #### L 100.0500, L500.2500 ####[facility] [address] [place], [address] CBC-Complete Blood Cnt No Di ffon 06-07-2025 Erythrocyte distribution width (RBC) [Ratio] 16.6 % High 11.6-14.6 [facility] Comment on above: Order Comment: 304.1 Performed By: #### L 100.0500, L500.2500 ####[facility] [address] [place], [address] Hematocrit (Bld) [Volume fraction] 35.7 % Low 37-47 [facility] Comment on above: Order Comment: 304.1 Performed By: #### L 100.0500, L500.2500 ####[facility] [address] [place], [address] Hemoglobin (Bld) [Mass/Vol] 11.4 g/dL Low 12.0-15.0 [facility] Comment on above: Order Comment: 304.1 Performed By: #### L 100.0500, L500.2500 ####[facility] [address] [place], [address] MCH (RBC) [Entitic mass] 29.8 pg Normal 27.0-32.0 [facility] Comment on above: Order Comment: 304.1 Performed By: #### L 100.0500, L500.2500 ####[facility] [address] [place], [address] MCHC (RBC) [Mass/Vol] 31.9 g/dL Low 32-36 [facility] Comment on above: Order Comment: 304.1 Performed By: #### L 100.0500, L500.2500 ####[facility] [address] [place], [address] MCV (RBC) [Entitic vol] 93.2 fL Normal 81-99 [facility] Comment on above: Order Comment: 304.1 Performed By: #### L 100.0500, L500.2500 ####[facility] [address] [place], [address] Platelet mean volume (Bld) [Entitic vol] 10.8 fL Normal 6.2-12.0 [facility] Comment on above: Order Comment: 304.1 Performed By: #### L 100.0500, L500.2500 ####[facility] [address] [place], [address] Platelets (Bld) [#/Vol] 242 10*3/uL Normal 150-450 [facility] Comment on above: Order Comment: 304.1 Performed By: #### L 100.0500, L500.2500 ####[facility] [address] [place], [address] RBC (Bld) [#/Vol] 3.83 10*6/uL Low 4.2-5.4 [facility] Comment on above: Order Comment: 304.1 Performed By: #### L 100.0500, L500.2500 ####[facility] [address] [place], [address] RDW SD 56.0 fl High 35.1-43.9 [facility] Comment on above: Order Comment: 304.1 Performed By: #### L 100.0500, L500.2500 ####[facility] [address] [place], [address] WBC (Bld) [#/Vol] 13.3 10*3/uL High 4.4-11.0 [facility] Comment on above: Order Comment: 304.1 Performed By: #### L 100.0500, L500.2500 ####[facility] [address] [place], [address] Carbon dioxide, total [Moles /volume] in Central venous bloodOrdered By: Prasanna Parra on 06-07-2025 CO2 [Moles/Vol] 23.5 mmol/L 21.0-32.0 [facility] Chloride assayOrdered By: Suh on 06-07-2025 Chloride [Moles/Vol] 101 mmol/L 98-108 [facility] Erythrocyte distribution wid th ratioOrdered By: Prasanna Parra on 06-07-2025 Erythrocyte distribution width (RBC) [Ratio] 16.6 % High 11.6-14.6 [facility] Erythrocyte distribution wid th standard deviationOrdered By: Prasanna Parra on 06-07-2025 Erythrocyte distribution width (RBC) [Ratio] 56.0 fl High 35.1-43.9 [facility] Glomerular filtration rate ( GFR) estimation/1.73 sq m using serum, plasma, or whole bOrdered By: Prasanna Parra on 06-07-2025 GFR/1.73 sq M.predicted among non-blacks MDRD (S/P/Bld) [Vol rate/Area] 40 mL/min/{1.73_m2} Low >60 [facility] Comment on above: mL/min/1.73m2 CKD-EP I Creatinine Equation (2020) Hematocrit Auto (Bld) [Volum e fraction]Ordered By: Prasanna Parra on 06-07-2025 Hematocrit (Bld) [Volume fraction] 35.7 % Low 37-47 [facility] Hemoglobin measurementOrdere d By: Prasanna Parra on 06-07-2025 Hemoglobin (Bld) [Mass/Vol] 11.4 g/dL Low 12.0-15.0 [facility] MCV (mean corpuscular volume ) determinationOrdered By: Prasanna Parra on 06-07-2025 MCV (RBC) [Entitic vol] 93.2 fL 81-99 [facility] Mean corpuscular hemoglobin (MCH) determinationOrdered By: Prasanna Parra on 06-07-2025 MCH (RBC) [Entitic mass] 29.8 pg 27.0-32.0 [facility] Mean corpuscular hemoglobin concentration (MCHC) determinationOrdered By: Prasanna Parra on 06-07-2025 MCHC (RBC) [Mass/Vol] 31.9 g/dL Low 32-36 [facility] Mean platelet volume determi nationOrdered By: Prasanna Parra on 06-07-2025 Platelet mean volume (Bld) [Entitic vol] 10.8 fL 6.2-12.0 [facility] Platelet countOrdered By: Suh on 06-07-2025 Platelets (Bld) [#/Vol] 242 10*3/uL 150-450 [facility] Potassium measurement (mass/ volume)Ordered By: Prasanna Parra on 06-07-2025 Potassium (Unsp spec) [Mass/Vol] 3.9 mmol/L 3.3-5.1 [facility] RBC Auto (Bld) [#/Vol]Ordere d By: Prasanna Parra on 06-07-2025 RBC (Bld) [#/Vol] 3.83 10*6/uL Low 4.2-5.4 [facility] Serum creatinine measurement (mass/volume)Ordered By: Prasanna Parra on 06-07-2025 Creatinine [Mass/Vol] 1.30 mg/dL High 0.70-1.20 [facility] Serum glucose measurement (m ass/volume)Ordered By: Prasanna Parra on 06-07-2025 Glucose [Mass/Vol] 120 mg/dL High 70-99 [facility] Serum or plasma calcium yara urement (mass/volume)Ordered By: Prasanna Parra on 06-07-2025 Calcium [Mass/Vol] 8.7 mg/dL 7.6-11.0 [facility] Serum or plasma urea nitroge n measurement (mass/volume)Ordered By: Prasanna Parra on 06-07-2025 Urea nitrogen [Mass/Vol] 48 mg/dL High 4-19 [facility] Sodium levelOrdered By: Prasanna Parra on 06-07-2025 Sodium [Moles/Vol] 136 mmol/L 133-145 [facility] White blood cell (WBC) count Ordered By: Prasanna Parra on 06-07-2025 WBC (Bld) [#/Vol] 13.3 10*3/uL High 4.4-11.0 [facility] Urine Cultureon 06-06-2025 [facility] Escherichia coli [place] Count >100,000 Escherichia coli: REACTION Ampicillin Islt AMA >=32 Ampicillin+Sulbac Islt AMA 4 S Cefepime Islt AMA <=0.12 S cefTRIAXone Islt AMA <=0.25 S Ciprofloxacin Islt AMA <=0.06 S B-Lactamase Extended Susc Islt NEG Gentamicin Islt AMA <=1 S levoFLOXacin Islt AMA <=0.12 S Meropenem Islt AMA <=0.25 S Nitrofurantoin Islt AMA <=16 S Pip+Tazo Islt AMA <=4 S TMP SMX Islt AMA <=20 S Normal [facility] Comment on above: Performed By: #### M 100.3249, M100.6776 #### [facility] [address] [place] [address], [address] Basic Metabolic Profile (BMP )on 06-04-2025 BUN Normal 4-19 [facility] Comment on above: Order Comment: 304.1 Result Comment: UTO X2 Performed By: #### L 100.0500, L500.2500, M100.2200, L400.0001 ####[facility] [address] [place], [address] BUN/CRE Normal 10-20 [facility] Comment on above: Order Comment: 304.1 Result Comment: UTO X2 Performed By: #### L 100.0500, L500.2500, M100.2200, L400.0001 ####[facility] [address] [place], [address] Calcium Normal 7.6-11.0 [facility] Comment on above: Order Comment: 304.1 Result Comment: UTO X2 Performed By: #### L 100.0500, L500.2500, M100.2200, L400.0001 ####[facility] [address] [place], [address] CL Normal 98-108 [facility] Comment on above: Order Comment: 304.1 Result Comment: UTO X2 Performed By: #### L 100.0500, L500.2500, M100.2200, L400.0001 ####[facility] [address] [place], [address] CO2 Normal 21.0-32.0 [facility] Comment on above: Order Comment: 304.1 Result Comment: UTO X2 Performed By: #### L 100.0500, L500.2500, M100.2200, L400.0001 ####[facility] [address] [place], [address] CREAT,SERUM Normal 0.70-1.20 [facility] Comment on above: Order Comment: 304.1 Result Comment: UTO X2 Performed By: #### L 100.0500, L500.2500, M100.2200, L400.0001 ####[facility] [address] [place], [address] eGFR Normal >60 [facility] Comment on above: Order Comment: 304.1 Result Comment: UTO X2 Performed By: #### L 100.0500, L500.2500, M100.2200, L400.0001 ####[facility] [address] [place], [address] GAP Normal 5-15 [facility] Comment on above: Order Comment: 304.1 Result Comment: UTO X2 Performed By: #### L 100.0500, L500.2500, M100.2200, L400.0001 ####[facility] [address] [place], [address] GLU Normal 70-99 [facility] Comment on above: Order Comment: 304.1 Result Comment: UTO X2 Performed By: #### L 100.0500, L500.2500, M100.2200, L400.0001 ####[facility] [address] [place], [address] Potassium Normal 3.3-5.1 [facility] Comment on above: Order Comment: 304.1 Result Comment: UTO X2 Performed By: #### L 100.0500, L500.2500, M100.2200, L400.0001 ####[facility] [address] [place], [address] Basic Metabolic Profile (BMP) Normal 133-145 [facility] Comment on above: Order Comment: 304.1 Result Comment: UTO X2 Performed By: #### L 100.0500, L500.2500, M100.2200, L400.0001 ####[facility] [address] [place], [address] Bilirubin Test strip Ql (U)O rdered By: Prasanna Parra on 06-04-2025 Bilirubin Ql (U) Negative Negative [facility] CBC-Complete Blood Cnt No Di ffon 06-04-2025 HCT Normal 37-47 [facility] Comment on above: Order Comment: 304.1 Result Comment: UTO X2 Performed By: #### L 100.0500, L500.2500, M100.2200, L400.0001 ####[facility] [address] [place], [address] HGB Normal 12.0-15.0 [facility] Comment on above: Order Comment: 304.1 Result Comment: UTO X2 Performed By: #### L 100.0500, L500.2500, M100.2200, L400.0001 ####[facility] [address] [place], [address] MCH Normal 27.0-32.0 [facility] Comment on above: Order Comment: 304.1 Result Comment: UTO X2 Performed By: #### L 100.0500, L500.2500, M100.2200, L400.0001 ####[facility] [address] [place], [address] MCHC Normal 32-36 [facility] Comment on above: Order Comment: 304.1 Result Comment: UTO X2 Performed By: #### L 100.0500, L500.2500, M100.2200, L400.0001 ####[facility] [address] [place], [address] MCV Normal 81-99 [facility] Comment on above: Order Comment: 304.1 Result Comment: UTO X2 Performed By: #### L 100.0500, L500.2500, M100.2200, L400.0001 ####[facility] [address] [place], [address] PLT Normal 150-450 [facility] Comment on above: Order Comment: 304.1 Result Comment: UTO X2 Performed By: #### L 100.0500, L500.2500, M100.2200, L400.0001 ####[facility] [address] [place], [address] RBC Normal 4.2-5.4 [facility] Comment on above: Order Comment: 304.1 Result Comment: UTO X2 Performed By: #### L 100.0500, L500.2500, M100.2200, L400.0001 ####[facility] [address] [place], [address] RDW CV Normal 11.6-14.6 [facility] Comment on above: Order Comment: 304.1 Result Comment: UTO X2 Performed By: #### L 100.0500, L500.2500, M100.2200, L400.0001 ####[facility] [address] [place], [address] RDW SD Normal 35.1-43.9 [facility] Comment on above: Order Comment: 304.1 Result Comment: UTO X2 Performed By: #### L 100.0500, L500.2500, M100.2200, L400.0001 ####[facility] [address] [place], [address] WBC Normal 4.4-11.0 [facility] Comment on above: Order Comment: 304.1 Result Comment: UTO X2 Performed By: #### L 100.0500, L500.2500, M100.2200, L400.0001 ####[facility] [address] [place], [address] Ketones Test strip Ql (U)Ord ered By: Prasanna Parra on 06-04-2025 Ketones Ql (U) Negative Negative [facility] Microscopic analysis of urin e for red blood cells (RBC)Ordered By: Prasanna Parra on 06-04-2025 Microscopic analysis of urine for red blood cells (RBC) 0 SEEN /hpf 0-5 [facility] Mucus LM Ql (Urine sed)Order ed By: Prasanna Parra on 06-04-2025 Mucus Ql (Urine sed) 0 SEEN /hpf [facility] Nitrite Test strip Ql (U)Ord ered By: Prasanna Parra on 06-04-2025 Nitrite Ql (U) Negative Negative [facility] Protein Test strip Ql (U)Ord ered By: Prasanna Parra on 06-04-2025 Protein Ql (U) 30 mg/dl High Negative [facility] Squamous epithelial cells de tection in urine sediment by light microscopyOrdered By: Prasanna Parra on 06-04-2025 Epithelial cells.squamous LM Ql (Urine sed) 0 SEEN /hpf - [facility] Urinalysis, Completeon 06-04 BACTERIA 3+ /hpf Normal None Seen [facility] Comment on above: Order Comment: CLEAN CATCH Performed By: #### M 100.96, M100.6795 #### [facility] [address] [place], [address] WBC 10-25 SEEN Normal 0-5 [facility] Comment on above: Order Comment: CLEAN CATCH Performed By: #### M 100.96, M100.95 #### [facility] [address] [place], [address] EPI,SQUAMOUS 0 SEEN Normal - [facility] Comment on above: Order Comment: CLEAN CATCH Performed By: #### M 100.96, M100.6795 #### [facility] [address] [place], [address] Mucus Ql (Urine sed) 0 SEEN Normal [facility] Comment on above: Order Comment: CLEAN CATCH Performed By: #### M 100.96, M100.6795 #### [facility] [address] [place], [address] RBC 0 SEEN Normal 0-5 [facility] Comment on above: Order Comment: CLEAN CATCH Performed By: #### M 100.96, M100.6795 #### [facility] [address] [place], [address] Urine clarityOrdered By: Iliana Parra on 06-04-2025 Clarity (U) Sl. Cloudy Clear [facility] Urine color determinationOrd ered By: Prasanna Parra on 06-04-2025 Color (U) Yellow Yellow [facility] Urine cultureOrdered By: Iliana Parra on 06-04-2025 Bacteria identified Cx Nom (U) Escherichia coli Abnormal [facility] Urine glucose detectionOrder ed By: Prasanna Parra on 06-04-2025 Glucose Ql (U) Normal mg/dl Normal [facility] Urine leukocyte esterase det ection by dipstickOrdered By: Prasanna Parra on 06-04-2025 Leukocyte esterase Test strip Ql (U) 500 /ul High Negative [facility] Urine pHOrdered By: Prasanna fiore on 06-04-2025 pH (U) 6.0 [pH] 5.0 - 8.0 [facility] Urine sediment bacteria coun t by microscopy (number/high power field)Ordered By: Prasanna Parra on 06-04-2025 Bacteria LM.HPF (Urine sed) [#/Area] 3 /[HPF] None Seen [facility] Urine specific gravity measu rementOrdered By: Prasanna Parra on 06-04-2025 Specific gravity (U) [Rel density] 1.020 1.002-1.03 0 [facility] Urine urobilinogen measureme ntOrdered By: Prasanna Parra on 06-04-2025 Urobilinogen Ql (U) Normal mg/dl Normal [facility] White blood cell countOrdere d By: Prasanna Parra on 06-04-2025 White blood cell count 10-25 SEEN /hpf 0-5 [facility] Hemoglobin A1con 06-01-2025 HbA1c (Bld) [Mass fraction] 6.5 % High <=5.6 [facility] Comment on above: Order Comment: 304.1 Result Comment: Norm al < 5.7 % Prediabetic 5.7 - 6.4 % Diabetic >or= 6.5 % Please note range changes. Performed By: #### L 842.7393 ####[facility] [address] [place], [place], [address] Hemoglobin A1c percentageOrd ered By: Prasanna Parra on 06-01-2025 HbA1c (Bld) [Mass fraction] 6.5 % High <5.7 [facility] Comment on above: Normal < 5.7 % Predi abetic 5.7 - 6.4 % Diabetic >or= 6.5 % Please note range changes. 12 Lead EKGon 05-31-2025 12 Lead EKG [facility] [address] [place] [address] 12 Lead EKG 05/31/25 1454 MR#: [id number] Acct: [id number] Name: HANNA NELSON Rep #: [id number] : 1940 85 From: Jennifer Perkins MD Attending Dr: Status: DEP ER Ordering Dr: Spenser Grande MD Date: 05/31/25 Location: ED Sex: F C Admitted: Test Reason : ALT MENTAL STATUS Blood Pressure : */* mmHG Vent. Rate : 117 BPM Atrial Rate : * BPM P-R Int : * ms QRS Dur : 84 ms QT Int : 306 ms P-R-T Axes : * -18 13 degrees QTcB Int : 426 ms Atrial fibrillation with rapid ventricular response Abnormal ECG Confirmed by Jennifer Perkins ([id number]), newspaper or periodical editor ANGELO FRANCOIS ([id number]) on 06/01/2025 11:12:27 AM Referred By: Confirmed By: Jennifer Perkins 06/01/25 1112 Date Jennifer Perkins MD CC: Dr. Prasanna Parra Sr., DO; Dr. Spenser Grande MD Signed Normal [facility] Absolute lymphocyte countOrd ered By: Spenser Grande on 05-31-2025 Lymphocytes Auto (Unsp spec) [#/Vol] 1.74 10*3/uL 0.83-4.51 [facility] Absolute neutrophil countOrd ered By: Spenser Grande on 05-31-2025 Neutrophils (Bld) [#/Vol] 8.9 10*3/uL High 2.0-7.7 [facility] Anion gap in Serum or Plasma Ordered By: Spenser Grande on 05-31-2025 Anion gap [Moles/Vol] 15 mmol/L 5-15 [facility] Automated lymphocyte count a s percentage of total leukocytesOrdered By: Spenser Grande on 05-31-2025 Lymphocytes/100 WBC Auto (Unsp spec) 14.7 % Low 19-41 [facility] BUN/creatinine ratioOrdered By: Spenser Grande on 05-31-2025 Urea nitrogen/Creatinine [Mass ratio] 37.6 mg/mg High 05-31 [facility] Basic Metabolic Profile (BMP )on 05-31-2025 BUN/CRE 37.6 RATIO High 05-31 [facility] Comment on above: Performed By: #### L 500.2500, L100.0100 ####[facility] [address] [place], [address] Calcium [Mass/Vol] 9.3 mg/dL Normal 7.6-11.0 [facility] Comment on above: Performed By: #### L 500.2500, L100.0100 ####[facility] [address] [place], [address] Chloride [Moles/Vol] 101 mmol/L Normal 98-108 [facility] Comment on above: Performed By: #### L 500.2500, L100.0100 ####[facility] [address] [place], [address] CO2 [Moles/Vol] 22.5 mmol/L Normal 21.0-32.0 [facility] Comment on above: Performed By: #### L 500.2500, L100.0100 ####[facility] [address] [place], [address] Creatinine [Mass/Vol] 0.94 mg/dL Normal 0.70-1.20 [facility] Comment on above: Performed By: #### L 500.2500, L100.0100 ####[facility] [address] [place], [address] ECRCL 53.40 ml/min Normal 50-250 [facility] Comment on above: Performed By: #### L 500.2500, L100.0100 ####[facility] [address] [place], [address] GAP 15 Normal 5-15 [facility] Comment on above: Performed By: #### L 500.2500, L100.0100 ####[facility] [address] [place], [address] GFR/1.73 sq M.predicted among non-blacks MDRD (S/P/Bld) [Vol rate/Area] 59 mL/min/{1.73_m2} Low >60 [facility] Comment on above: Result Comment: mL/m in/1.73m2 CKD-EPI Creatinine Equation (2020) Performed By: #### L 500.2500, L100.0100 ####[facility] [address] [place], [address] Glucose [Mass/Vol] 220 mg/dL High 70-99 [facility] Comment on above: Performed By: #### L 500.2500, L100.0100 ####[facility] [address] [place], [address] Potassium [Moles/Vol] 4.4 mmol/L Normal 3.3-5.1 [facility] Comment on above: Performed By: #### L 500.2500, L100.0100 ####[facility] [address] [place], [address] Sodium [Moles/Vol] 139 mmol/L Normal 133-145 [facility] Comment on above: Performed By: #### L 500.2500, L100.0100 ####[facility] [address] [place], [address] Urea nitrogen [Mass/Vol] 35 mg/dL High 4-19 [facility] Comment on above: Performed By: #### L 500.2500, L100.0100 ####[facility] [address] [place], [address] Basophil percentageOrdered B y: Spenser Grande on 05-31-2024 Basophils/100 WBC (Bld) 0.3 % 0-1 [facility] CBC W/Diff, Automatedon 05-13-2024 Absolute Lymph 1.74 X10 3/uL Normal 0.83-4.51 [facility] Comment on above: Performed By: #### L 500.2500, L100.0100 ####[facility] [address] [place], [address] Absolute Neut 8.9 X10 3/uL High 2.0-7.7 [facility] Comment on above: Performed By: #### L 500.2500, L100.0100 ####[facility] [address] [place], [address] Basophils/100 WBC (Bld) 0.3 % Normal 0-1 [facility] Comment on above: Performed By: #### L 500.2500, L100.0100 ####[facility] [address] [place], [address] Eosinophils/100 WBC (Bld) 2.0 % Normal 0-5 [facility] Comment on above: Performed By: #### L 500.2500, L100.0100 ####[facility] [address] [place], [address] Erythrocyte distribution width (RBC) [Ratio] 15.5 % High 11.6-14.6 [facility] Comment on above: Performed By: #### L 500.2500, L100.0100 ####[facility] [address] [place], [address] Hematocrit (Bld) [Volume fraction] 39.4 % Normal 37-47 [facility] Comment on above: Performed By: #### L 500.2500, L100.0100 ####[facility] [address] [place], [address] Hemoglobin (Bld) [Mass/Vol] 12.9 g/dL Normal 12.0-15.0 [facility] Comment on above: Performed By: #### L 500.2500, L100.0100 ####[facility] [address] [place], [address] IG% 0.500 Normal 0.0-0.9 [facility] Comment on above: Result Comment: IG% - Immature Granulocytes (promyelocytes, myelocytes and metamyelocytes) > 1% indicates that a LEFT SHIFT is Present. Performed By: #### L 500.2500, L100.0100 ####[facility] [address] [place], [address] Lymphocytes/100 WBC (Bld) 14.7 % Low 19-41 [facility] Comment on above: Performed By: #### L 500.2500, L100.0100 ####[facility] [address] [place], [address] MCH (RBC) [Entitic mass] 29.7 pg Normal 27.0-32.0 [facility] Comment on above: Performed By: #### L 500.2500, L100.0100 ####[facility] [address] [place], [address] MCHC (RBC) [Mass/Vol] 32.7 g/dL Normal 32-36 [facility] Comment on above: Performed By: #### L 500.2500, L100.0100 ####[facility] [address] [place], [address] MCV (RBC) [Entitic vol] 90.8 fL Normal 81-99 [facility] Comment on above: Performed By: #### L 500.2500, L100.0100 ####[facility] [address] [place], [address] Monocytes/100 WBC (Bld) 7.5 % Normal 0-10 [facility] Comment on above: Performed By: #### L 500.2500, L100.0100 ####[facility] [address] [place], [address] Neutrophils/100 WBC (Bld) 75.0 % High 47-70 [facility] Comment on above: Performed By: #### L 500.2500, L100.0100 ####[facility] [address] [place], [address] Nucleated RBC (Bld) [#/Vol] 0 10*3/uL Normal 0-5 [facility] Comment on above: Performed By: #### L 500.2500, L100.0100 ####[facility] [address] [place], [address] Platelet mean volume (Bld) [Entitic vol] 10.5 fL Normal 6.2-12.0 [facility] Comment on above: Performed By: #### L 500.2500, L100.0100 ####[facility] [address] [place], [address] Platelets (Bld) [#/Vol] 262 10*3/uL Normal 150-450 [facility] Comment on above: Performed By: #### L 500.2500, L100.0100 ####[facility] [address] [place], [address] RBC (Bld) [#/Vol] 4.34 10*6/uL Normal 4.2-5.4 [facility] Comment on above: Performed By: #### L 500.2500, L100.0100 ####[facility] [address] [place], [address] RDW SD 51.5 fl High 35.1-43.9 [facility] Comment on above: Performed By: #### L 500.2500, L100.0100 ####[facility] [address] [place] [place], [address] WBC (Bld) [#/Vol] 11.8 10*3/uL High 4.4-11.0 [facility] Comment on above: Performed By: #### L 500.2500, L100.0100 ####[facility] [address] [place], [address] Carbon dioxide, total [Moles /volume] in Central venous bloodOrdered By: Spenser Grande on 05-31-2025 CO2 [Moles/Vol] 22.5 mmol/L 21.0-32.0 [facility] Chloride assayOrdered By: Lisa Grande on 05-31-2025 Chloride [Moles/Vol] 101 mmol/L 98-108 [facility] Electrocardiogram reportOrde red By: Jennifer Perkins on 05-31-2025 EKG study [facility] [address] [place] [address] 12 Lead EKG 05/31/25 1454 MR#: [id number] Acct: [id number] Name: HANNA NELSON Rep #:[id number] : 1940 85 From: Jennifer montiel MD Attending Dr: Status: DEP E R Ordering Dr: Spenser Grande MD Date: 05/31 Location: ED Sex: F C Admitted: Test Reason : ALT MENTAL STATUS Blood Pressure : */* mmHG Vent. Rate : 117 BPM Atrial Rate : * BPM P-R Int : * ms QRS Dur : 84 ms QT Int : 306 ms P-R-T Axes : * -18 13 degrees QTcB Int : 426 ms Atrial fibrillation with rapid ventricular response Abnormal ECG Confirmed by Jennifer Perkins ([id number]), newspaper or periodical editor ANGELO FRANCOIS ([id number]) on 511:12:27 AM Referred By: Confirmed By: Jennifer Perkins 06/01/25 1112 Date _ Jennifer Perkins MD CC: Dr. Prasanna Parra Sr., DO; Dr. Spenser Grande MD ~ Signed [facility] Other Phone: Emergency Department Summary on 05-31-2025 Emergency Department Summary [facility] Medical Records Department [address] [place] [address] Emergency Department Summary 05/31/25 MR#: [id number] Acct: [id number] Name: HANNA NELSON Rep #: [id number] : 1940 85 From: Spenser Grande MD PCP: Dr. Prasanna Parra Sr., DO Status:REG ER Location: ED HPI History of Present Illness Chief Complaint: Alt LOC Detail of Chief Complaint: Altered mental status with change in speaking, blood sugar was low Informant: patient, family and EMS Limited: other (Patient does not recall what happened since her blood sugar was low.) Onset/Context/Timing Onset: Today and Hours Context: Sudden Onset Timing: Intermittent Quality and Location: Positive for Expressive Aphasia Onset: Prior to arrival Current Severity: Gone Maximum Severity: Severe Worsened by: Hypoglycemia Relieved by: Apple juice and sugar Associated Symptoms Associated Symptoms: Negative for Headache, Nausea, Vomiting or Chest Pain Narrative Narrative: History is limited for 2 reasons. Patient has dementia when chart review mental status with altered she has no recall. Patient had a low blood sugar. She had trouble with speaking and her level conscious was depressed. She was treated with apple juice and sugar. When it was rechecked it was 231 and her speech was improving. She again developed problems speaking and her blood sugar was dropping and was 91. The nurse at the facility reported she did not eat all of her lunch. Patient was given 4 units of insulin prior to meal. Patient presently denies headache. She denies visual or auditory symptoms. She denies cardiac or respiratory symptoms. She denies GI symptoms. She denies numbness or tingling her arms or legs. She denies weakness in her arms or legs. Prior similar symptoms: Yes Recent Illness/Hospitalization: No PFSH PFS Medical History Diarrhea, unspecified Personal history of nicotine dependence Personal history of (healed) traumatic fracture Personal history of urinary (tract) infections Other lack of coordination Other abnormalities of gait and mobility Overactive bladder Chronic kidney disease, stage 2 (mild) Flat foot [pes planus] (acquired), left foot Unilateral primary osteoarthritis, right knee Unspecified atrial fibrillation Other forms of acute ischemic heart disease Hypertensive chronic kidney disease with stage 1 through stage 4 chronic kidney disease, or unspecified chronic kidney disease Hyperlipidemia, unspecified Type 2 diabetes mellitus with hyperglycemia Type 2 diabetes mellitus with diabetic neuropathy, unspecified Hypothyroidism, unspecified Charcot's arthropathy (tabetic) Cognitive communication deficit History of falling Unspecified fracture of left pubis, subsequent encounter for fracture with routine healing Unspecified fracture of right pubis, subsequent encounter for fracture with routine healing Abnormal posture Hypotension, unspecified Other nonrheumatic aortic valve disorders Anemia, unspecified Personal history of other infectious and parasitic diseases Adjustment disorder with mixed anxiety and depressed mood Rhabdomyolysis Displaced subtrochanteric fracture of left femur, subsequent encounter for closed fracture with routine healing VRE (vancomycin resistant enterococcus) culture positive Home Medications ???Medication ???Instructions ???Recorded ???Last Taken ???Type L. rhamnosus 10 billion cell-vit C 1 tab PO DAILY SUPPLEMENT 05/24/25 History 90 mg-zinc 3 mg-eldrbry chew tablet (NetasqBooster.ly Immune Defense) LEMUS PROBIOTIC 1 cap PO DAILY SUPPLEMENT 05/31/25 05/25/25 History acetaminophen 325 mg capsule 650 mg PO TID PAIN 05/31/25 History apixaban 5 mg tablet (Eliquis) 5 mg PO BID DISPLACED 05/31/25 History SUBTROCHANTERIC FRACTURE LEFT FEMUR atorvastatin 20 mg tablet 20 mg PO DAILY HYPERLIPIDEMIA 05/1305/30/25 History cyanocobalamin (vitamin B-12) 1,000 mcg PO DAILY SUPPLEMENT 05/1305/31/25 History 1,000 mcg capsule duloxetine 30 mg capsule,delayed 30 mg PO BID ADJUSTMENT DISORDER 1 05/31/25 History release gabapentin 300 mg capsule 300 mg PO BID DIABETIC PAIN 05/31/25 History glucagon 1 mg solution for 1 mg IM Q20M PRN hypoglycemia 05/13 Unknown History injection (Glucagon Emergency Kit) insulin degludec 100 unit/mL (3 34 unit subcut DAILY DM 05/31/25 1 History mL) subcutaneous pen insulin lispro 100 unit/mL 4 unit subcut TID DM 05/31/25 10/2 0 History subcutaneous solution levothyroxine 112 mcg tablet 112 mcg PO DAILY HYPOTHYROIDISM 05/31/25 History magnesium hydroxide 400 mg/5 mL 30 ml PO DAILY PRN constipation Unknown History oral suspension (Gentle Laxative (magnesium hydroxid (more content not included)... Normal [facility] Eosinophil percentageOrdered By: Spenser Grande on 05-31-2025 Eosinophils/100 WBC (Bld) 2.0 % 0-5 [facility] Erythrocyte distribution wid th ratioOrdered By: Spenserzainab Grande on 05-31-2025 Erythrocyte distribution width (RBC) [Ratio] 15.5 % High 11.6-14.6 [facility] Erythrocyte distribution wid th standard deviationOrdered By: Spenserzainab Grande on 05-31-2025 Erythrocyte distribution width (RBC) [Ratio] 51.5 fl High 35.1-43.9 [facility] Glomerular filtration rate ( GFR) estimation/1.73 sq m using serum, plasma, or whole bOrdered By: Spenser Grande on 05-31-2025 GFR/1.73 sq M.predicted among non-blacks MDRD (S/P/Bld) [Vol rate/Area] 59 mL/min/{1.73_m2} Low >60 [facility] Comment on above: mL/min/1.73m2 CKD-EP I Creatinine Equation (2020) Hematocrit Auto (Bld) [Volum e fraction]Ordered By: Spenser Grande on 05-31-2025 Hematocrit (Bld) [Volume fraction] 39.4 % 37-47 [facility] Hemoglobin measurementOrdere d By: Spenser Grande on 05-31-2025 Hemoglobin (Bld) [Mass/Vol] 12.9 g/dL 12.0-15.0 [facility] Immature granulocytes/100 WB C Auto (Bld)Ordered By: Spenser Grande on 05-31-2025 Immature granulocytes/100 WBC (Bld) 0.500 % 0.0-0.9 [facility] Comment on above: IG% - Immature Granu locytes (promyelocytes, myelocytes and metamyelocytes) > 1% indicates that a LEFT SHIFT is Present. MCV (mean corpuscular volume ) determinationOrdered By: Spenser Dovero on 05-31-2025 MCV (RBC) [Entitic vol] 90.8 fL 81-99 [facility] Mean corpuscular hemoglobin (MCH) determinationOrdered By: Spenser Dovero on 05-31-2025 MCH (RBC) [Entitic mass] 29.7 pg 27.0-32.0 [facility] Mean corpuscular hemoglobin concentration (MCHC) determinationOrdered By: Spenser Grande on 05-31-2025 MCHC (RBC) [Mass/Vol] 32.7 g/dL 32-36 [facility] Mean platelet volume determi nationOrdered By: Spenser Dovero on 05-31-2025 Platelet mean volume (Bld) [Entitic vol] 10.5 fL 6.2-12.0 [facility] Monocyte percentageOrdered B y: Spenserzainab Dovero on 05-31-2025 Monocytes/100 WBC (Bld) 7.5 % 0-10 [facility] Neutrophil percentageOrdered By: Spenser Grande on 05-31-2025 Neutrophils/100 WBC (Bld) 75.0 % High 47-70 [facility] Nucleated red blood cell per centageOrdered By: Spenser Grande on 05-31-2025 Nucleated RBC/100 WBC (Bld) [Ratio] 0 % 0-5 [facility] Platelet countOrdered By: Lisa zainab Dovero on 05-31-2025 Platelets (Bld) [#/Vol] 262 10*3/uL 150-450 [facility] Potassium measurement (mass/ volume)Ordered By: Spenser Grande on 05-31-2025 Potassium (Unsp spec) [Mass/Vol] 4.4 mmol/L 3.3-5.1 [facility] RBC Auto (Bld) [#/Vol]Ordere d By: Spenserzainab Dovero on 05-31-2025 RBC (Bld) [#/Vol] 4.34 10*6/uL 4.2-5.4 [facility] Serum creatinine measurement (mass/volume)Ordered By: Spenser Grande on 05-31-2025 Creatinine [Mass/Vol] 0.94 mg/dL 0.70-1.20 [facility] Serum glucose measurement (m ass/volume)Ordered By: [facility] on 05-31-2025 Glucose [Mass/Vol] 220 mg/dL High 70-99 [facility] Serum or plasma calcium yara urement (mass/volume)Ordered By: [facility] on 05-31-2025 Calcium [Mass/Vol] 9.3 mg/dL 7.6-11.0 [facility] Serum or plasma urea nitroge n measurement (mass/volume)Ordered By: [facility] on 05-31-2025 Urea nitrogen [Mass/Vol] 35 mg/dL High 4-19 [facility] Sodium levelOrdered By: [facility] on 05-31-2025 Sodium [Moles/Vol] 139 mmol/L 133-145 [facility] White blood cell (WBC) count Ordered By: [facility] on 05-31-2025 WBC (Bld) [#/Vol] 11.8 10*3/uL High 4.4-11.0 [facility] [id number] 04-30-2025 [id number] [facility] Patient Name: HANNA NELSON Date of : 1940 Normal [facility] TSH DL <= 0.005 mIU/L QnOrde red By: Prasanna Parra on 04-19-2025 TSH Qn 2.660 uIU/mL 0.300-4.20 0 [facility] Thyroid Stim Hormone (TSH)on 04-19-2025 TSH 2.660 uIU/mL Normal 0.300-4.20 0 [facility] Comment on above: Order Comment: 304-1 Performed By: #### L 501.9520 ####[facility] [address] [place], [address] 36on 04-14-2025 36 Normal [facility] CDIFF (PCR)on 04-07-2025 CDIFF A positive C. diffic ile molecular test does not differentiate between an active C. difficile infection and C. difficile colonization. Use clinical judgement and paired toxin/antigen testing to identify true infection and need for treatment. C diff DNA Spec Ql ROBERT+probe Reference Range: Negative Cepheid GeneXpert: polymerase chain reaction (PCR) 027 027 NAP1-B1 Presumptive Negative *for epidemiolologic???use C. Diff PCR A Positive-Toxigenic C. Difficile Detected A Normal [facility] Comment on above: Performed By: #### M 100.6796, M100.6795 #### [facility] [address] [place], [place], [id number] Clostridium Diff Toxin/Agon 04-07-2025 CDIFF (EIA) Interpretation [...] sent to Infection Control Printer [id number] 04/07/25 1311 BLUCAS. C. difficile Antigen A Positive C. diff A/B Antigen A C. difficile Toxin Negative C. diff Toxin Normal [facility] Comment on above: Performed By: #### M 1006796, M100.6795 #### [facility] [address] [place], [place], [id number] Clostridium difficile detect ion by polymerase chain reactionOrdered By: Prasanna Parra on 04-07-2025 C. difficile DNA ROBERT+probe Ql (Unsp spec) [facility] Stool Clostridium difficile detectionOrdered By: Prasanna Parra on 04-07-2025 C. difficile Ql (Stl) [facility] 36on 04-06-2025 36 Called and gave the verbal ok for removal [facility] 36 OK for removal [place] [address] Please advise if sta ples may be removed. Thank you, [facility] [phone] [facility] 36on 04-05-2025 36 Spoke to nursing sta ff, gave clinical email for picture to be sent, and specified x-rays needed. [facility] 36 We would need ponce posada of incision to approve staple removal, if karen are removed prior to appointment does not need to come in/have x-rays until 6 weeks from surgery (week of May 03) Normal [facility] 36 Normal [facility] Urine Cultureon 04-05-2025 [facility] Copy of report sent to Infection Control Printer MS#[id number] 04/04/25 1126 BECKY. Urine Culture RESULTS CALLED TO [employer] 04/05/25 Mario Brito. REPORT READ BACK BY . Urine Culture Raoultella planticola [place] Count <1000 Vancomycin Resist. E. faecium Vancomycin Resist. E. faecium CALBP [place] Count <1000 * This is an amended result. * A prior result that was reported as final has been changed. 04/05/25 1508 by LEANNE Payne planticola: REACTION Ampicillin Islt AMA R Ampicillin+Sulbac [...] R Vancomycin Islt AMA >=32 R Normal [facility] Comment on above: Performed By: #### L 100.0500, M100.2200, L400.0001 #### [facility] [place], [address] Bilirubin Test strip Ql (U)O rdered By: Prasanna Parra on 03-31-2025 Bilirubin Ql (U) Negative Negative [facility] CBC-Complete Blood Cnt No Di ffon 03-31-2025 Erythrocyte distribution width (RBC) [Ratio] 15.4 % High 11.6-14.6 [facility] Comment on above: Order Comment: 304-1 Performed By: #### L 100.0500, M100.2200, L400.0001 #### [facility] [address] [place], [address] Hematocrit (Bld) [Volume fraction] 27.9 % Low 37-47 [facility] Comment on above: Order Comment: 304-1 Performed By: #### L 100.0500, M100.2200, L400.0001 #### [facility] [address] [place], [address] Hemoglobin (Bld) [Mass/Vol] 8.7 g/dL Low 12.0-15.0 [facility] Comment on above: Order Comment: 304-1 Performed By: #### L 100.0500, M100.2200, L400.0001 #### [facility] [address] [place], [address] MCH (RBC) [Entitic mass] 29.5 pg Normal 27.0-32.0 [facility] Comment on above: Order Comment: 304-1 Performed By: #### L 100.0500, M100.2200, L400.0001 #### [facility] [address] [place], [address] MCHC (RBC) [Mass/Vol] 31.2 g/dL Low 32-36 [facility] Comment on above: Order Comment: 304-1 Performed By: #### L 100.0500, M100.2200, L400.0001 #### [facility] [address] [place], [address] MCV (RBC) [Entitic vol] 94.6 fL Normal 81-99 [facility] Comment on above: Order Comment: 304-1 Performed By: #### L 100.0500, M100.2200, L400.0001 #### [facility] [address] [place], [address] Platelet mean volume (Bld) [Entitic vol] 10.2 fL Normal 6.2-12.0 [facility] Comment on above: Order Comment: 304-1 Performed By: #### L 100.0500, M100.2200, L400.0001 #### [facility] [address] [place], [address] Platelets (Bld) [#/Vol] 445 10*3/uL Normal 150-450 [facility] Comment on above: Order Comment: 304-1 Performed By: #### L 100.0500, M100.2200, L400.0001 #### [facility] [address] [place], [address] RBC (Bld) [#/Vol] 2.95 10*6/uL Low 4.2-5.4 [facility] Comment on above: Order Comment: 304-1 Performed By: #### L 100.0500, M100.2200, L400.0001 #### [facility] [address] [place], [address] RDW SD 53.5 fl High 35.1-43.9 [facility] Comment on above: Order Comment: 304-1 Performed By: #### L 100.0500, M100.2200, L400.0001 #### [facility] [address] [place], [address] WBC (Bld) [#/Vol] 11.6 10*3/uL High 4.4-11.0 [facility] Comment on above: Order Comment: 304-1 Performed By: #### L 100.0500, M100.2200, L400.0001 #### [facility] [address] [place], [address] Erythrocyte distribution wid th ratioOrdered By: Prasanna Parra on 03-31-2025 Erythrocyte distribution width (RBC) [Ratio] 15.4 % High 11.6-14.6 [facility] Erythrocyte distribution wid th standard deviationOrdered By: Prasanna Parra on 03-31-2025 Erythrocyte distribution width (RBC) [Ratio] 53.5 fl High 35.1-43.9 [facility] Hematocrit Auto (Bld) [Volum e fraction]Ordered By: Prasanna Parra on 03-31-2025 Hematocrit (Bld) [Volume fraction] 27.9 % Low 37-47 [facility] Hemoglobin measurementOrdere d By: Prasanna Parra on 03-31-2025 Hemoglobin (Bld) [Mass/Vol] 8.7 g/dL Low 12.0-15.0 [facility] Ketones Test strip Ql (U)Ord ered By: Prasanna Parra on 03-31-2025 Ketones Ql (U) Negative Negative [facility] MCV (mean corpuscular volume ) determinationOrdered By: Prasanna Parra on 03-31-2025 MCV (RBC) [Entitic vol] 94.6 fL 81-99 [facility] Mean corpuscular hemoglobin (MCH) determinationOrdered By: Prasanna Parra on 03-31-2025 MCH (RBC) [Entitic mass] 29.5 pg 27.0-32.0 [facility] Mean corpuscular hemoglobin concentration (MCHC) determinationOrdered By: Prasanna Parra on 03-31-2025 MCHC (RBC) [Mass/Vol] 31.2 g/dL Low 32-36 [facility] Mean platelet volume determi nationOrdered By: Prasanna Parra on 03-31-2025 Platelet mean volume (Bld) [Entitic vol] 10.2 fL 6.2-12.0 [facility] Microscopic analysis of urin e for red blood cells (RBC)Ordered By: Prasanna Parra on 03-31-2025 Microscopic analysis of urine for red blood cells (RBC) 0 SEEN /hpf 0-5 [facility] Mucus LM Ql (Urine sed)Order ed By: Prasanna Parra on 03-31-2025 Mucus Ql (Urine sed) 0 SEEN /hpf [facility] Nitrite Test strip Ql (U)Ord ered By: Prasanna Parra on 03-31-2025 Nitrite Ql (U) Negative Negative [facility] Platelet countOrdered By: Suh on 03-31-2025 Platelets (Bld) [#/Vol] 445 10*3/uL 150-450 [facility] Protein Test strip Ql (U)Ord ered By: Prasanna Parra on 03-31-2025 Protein Ql (U) 15 mg/dl High Negative [facility] [facility] Auto (Bld) [#/Vol]Ordere d By: Prasanna Parra on 03-31-2025 RBC (Bld) [#/Vol] 2.95 10*6/uL Low 4.2-5.4 [facility] Squamous epithelial cells de tection in urine sediment by light microscopyOrdered By: Prasanna Parra on 03-31-2025 Epithelial cells.squamous LM Ql (Urine sed) 0 SEEN /hpf - [facility] Urinalysis, Completeon 03-31 BACTERIA 0 SEEN Normal None Seen [facility] Comment on above: Order Comment: GUME TER SPECIMEN Performed By: #### L 100.0500, M100.2200, L400.0001 #### [facility] [address] [place], [address] EPI,SQUAMOUS 0 SEEN Normal - [facility] Comment on above: Order Comment: GUME TER SPECIMEN Performed By: #### L 100.0500, M100.2200, L400.0001 #### [facility] [address] [place], [address] Mucus Ql (Urine sed) 0 SEEN Normal [facility] Comment on above: Order Comment: GUME TER SPECIMEN Performed By: #### L 100.0500, M100.2200, L400.0001 #### [facility] [address] [place], [address] RBC 0 SEEN Normal 0-5 [facility] Comment on above: Order Comment: GUME TER SPECIMEN Performed By: #### L 100.0500, M100.2200, L400.0001 #### [facility] [address] [place], [address] WBC 0 SEEN Normal 0-5 [facility] Comment on above: Order Comment: GUME TER SPECIMEN Performed By: #### L 100.0500, M100.2200, L400.0001 #### [facility] [address] [place], [address] Urine clarityOrdered By: Iliana Parra on 03-31-2025 Clarity (U) Clear Clear [facility] Urine color determinationOrd ered By: Prasanna Parra on 03-31-2025 Color (U) Yellow Yellow [facility] Urine cultureOrdered By: Iliana Parra on 03-31-2025 Bacteria identified Cx Nom (U) Raoultella planticola Abnormal [facility] Bacteria identified Cx Nom (U) Vancomycin Resist. E. faecium Abnormal [facility] Bacteria identified Cx Nom (U) Presumptive C albicans Abnormal [facility] Urine glucose detectionOrder ed By: Prasanna Parra on 03-31-2025 Glucose Ql (U) 100 mg/dl High Normal [facility] Urine leukocyte esterase det ection by dipstickOrdered By: Prasanna Parra on 03-31-2025 Leukocyte esterase Test strip Ql (U) Negative Negative [facility] Urine pHOrdered By: Prasanna fiore on 03-31-2025 pH (U) 6.0 [pH] 5.0 - 8.0 [facility] Urine sediment bacteria coun t by microscopy (number/high power field)Ordered By: Prasanna Parra on 03-31-2025 Bacteria LM.HPF (Urine sed) [#/Area] 0 /[HPF] None Seen [facility] Urine specific gravity measu rementOrdered By: Prasanna Parra on 03-31-2025 Specific gravity (U) [Rel density] 1.015 1.002-1.03 0 [facility] Urine urobilinogen measureme ntOrdered By: Prasanna Parra on 03-31-2025 Urobilinogen Ql (U) Normal mg/dl Normal [facility] White blood cell (WBC) count Ordered By: Prasanna Parra on 03-31-2025 WBC (Bld) [#/Vol] 11.6 10*3/uL High 4.4-11.0 [facility] White blood cell countOrdere d By: Prasanna Parra on 03-31-2025 White blood cell count 0 SEEN /hpf 0-5 [facility] CBC-Complete Blood Cnt No Di ffon 03-30-2025 HCT Normal 37-47 [facility] Comment on above: Order Comment: 304.1 Result Comment: UTO X2 Performed By: #### L 100.0500 #### [facility] [address] [place], [address] HGB Normal 12.0-15.0 [facility] Comment on above: Order Comment: 304.1 Result Comment: UTO X2 Performed By: #### L 100.0500 #### [facility] [address] [place], [address] MCH Normal 27.0-32.0 [facility] Comment on above: Order Comment: 304.1 Result Comment: UTO X2 Performed By: #### L 100.0500 #### [facility] [address] [place], [address] MCHC Normal 32-36 [facility] Comment on above: Order Comment: 304.1 Result Comment: UTO X2 Performed By: #### L 100.0500 #### [facility] [address] [place], [address] MCV Normal 81-99 [facility] Comment on above: Order Comment: 304.1 Result Comment: UTO X2 Performed By: #### L 100.0500 #### [facility] [address] [place], [address] PLT Normal 150-450 [facility] Comment on above: Order Comment: 304.1 Result Comment: UTO X2 Performed By: #### L 100.0500 #### [facility] [address] [place], [address] RBC Normal 4.2-5.4 [facility] Comment on above: Order Comment: 304.1 Result Comment: UTO X2 Performed By: #### L 100.0500 #### [facility] [address] [place], [address] RDW CV Normal 11.6-14.6 [facility] Comment on above: Order Comment: 304.1 Result Comment: UTO X2 Performed By: #### L 100.0500 #### [facility] [address] [place], [address] RDW SD Normal 35.1-43.9 [facility] Comment on above: Order Comment: 304.1 Result Comment: UTO X2 Performed By: #### L 100.0500 #### [facility] [address] [place], [address] WBC Normal 4.4-11.0 [facility] Comment on above: Order Comment: 304.1 Result Comment: UTO X2 Performed By: #### L 100.0500 #### [facility] [address] [place], [address] Anion gap in Serum or Plasma Ordered By: Prasanna Parra on 03-29-2025 Anion gap [Moles/Vol] 11 mmol/L 5-15 [facility] BUN/creatinine ratioOrdered By: Prasanna Parra on 03-29-2025 Urea nitrogen/Creatinine [Mass ratio] 41.7 mg/mg High - [facility] Basic Metabolic Profile (BMP )on 03-29-2025 BUN/CRE 41.7 RATIO High - [facility] Comment on above: Order Comment: 304-1 Performed By: #### L 500.2500, L100.0500 ####[facility] [address] [place], [address] Calcium [Mass/Vol] 9.1 mg/dL Normal 7.6-11.0 [facility] Comment on above: Order Comment: 304-1 Performed By: #### L 500.2500, L100.0500 ####[facility] [address] [place], [address] Chloride [Moles/Vol] 103 mmol/L Normal 98-108 [facility] Comment on above: Order Comment: 304-1 Performed By: #### L 500.2500, L100.0500 ####[facility] [address] [place], [address] CO2 [Moles/Vol] 24.0 mmol/L Normal 21.0-32.0 [facility] Comment on above: Order Comment: 304-1 Performed By: #### L 500.2500, L100.0500 ####[facility] [address] [place], [address] Creatinine [Mass/Vol] 0.94 mg/dL Normal 0.70-1.20 [facility] Comment on above: Order Comment: 304-1 Performed By: #### L 500.2500, L100.0500 ####[facility] [address] [place], [address] GAP 11 Normal 5-15 [facility] Comment on above: Order Comment: 304-1 Performed By: #### L 500.2500, L100.0500 ####[facility] [address] [place], [address] GFR/1.73 sq M.predicted among non-blacks MDRD (S/P/Bld) [Vol rate/Area] 59 mL/min/{1.73_m2} Low >60 [facility] Comment on above: Order Comment: 304-1 Result Comment: mL/m in/1.73m2 CKD-EPI Creatinine Equation (2020) Performed By: #### L 500.2500, L100.0500 ####[facility] [address] [place], [address] Glucose [Mass/Vol] 158 mg/dL High 70-99 [facility] Comment on above: Order Comment: 304-1 Performed By: #### L 500.2500, L100.0500 ####[facility] [address] [place], [address] Potassium [Moles/Vol] 4.2 mmol/L Normal 3.3-5.1 [facility] Comment on above: Order Comment: 304-1 Performed By: #### L 500.2500, L100.0500 ####[facility] [address] [place], [address] Sodium [Moles/Vol] 139 mmol/L Normal 133-145 [facility] Comment on above: Order Comment: 304-1 Performed By: #### L 500.2500, L100.0500 ####[facility] [address] [place], [address] Urea nitrogen [Mass/Vol] 39 mg/dL High 4-19 [facility] Comment on above: Order Comment: 304-1 Performed By: #### L 500.2500, L100.0500 ####[facility] [address] [place], [address] CBC-Complete Blood Cnt No Di ffon 03-29-2025 Erythrocyte distribution width (RBC) [Ratio] 15.3 % High 11.6-14.6 [facility] Comment on above: Order Comment: 304-1 Performed By: #### L 500.2500, L100.0500 ####[facility] [address] [place], [address] Hematocrit (Bld) [Volume fraction] 28.8 % Low 37-47 [facility] Comment on above: Order Comment: 304-1 Performed By: #### L 500.2500, L100.0500 ####[facility] [address] [place], [address] Hemoglobin (Bld) [Mass/Vol] 8.9 g/dL Low 12.0-15.0 [facility] Comment on above: Order Comment: 304-1 Performed By: #### L 500.2500, L100.0500 ####[facility] [address] [place], [address] MCH (RBC) [Entitic mass] 29.2 pg Normal 27.0-32.0 [facility] Comment on above: Order Comment: 304-1 Performed By: #### L 500.2500, L100.0500 ####[facility] [address] [place], [address] MCHC (RBC) [Mass/Vol] 30.9 g/dL Low 32-36 [facility] Comment on above: Order Comment: 304-1 Performed By: #### L 500.2500, L100.0500 ####[facility] [address] [place], [address] MCV (RBC) [Entitic vol] 94.4 fL Normal 81-99 [facility] Comment on above: Order Comment: 304-1 Performed By: #### L 500.2500, L100.0500 ####[facility] [address] [place], [address] Platelet mean volume (Bld) [Entitic vol] 10.3 fL Normal 6.2-12.0 [facility] Comment on above: Order Comment: 304-1 Performed By: #### L 500.2500, L100.0500 ####[facility] [address] [place], [address] Platelets (Bld) [#/Vol] 415 10*3/uL Normal 150-450 [facility] Comment on above: Order Comment: 304-1 Performed By: #### L 500.2500, L100.0500 ####[facility] [address] [place], [address] RBC (Bld) [#/Vol] 3.05 10*6/uL Low 4.2-5.4 [facility] Comment on above: Order Comment: 304-1 Performed By: #### L 500.2500, L100.0500 ####[facility] [address] [place], [address] RDW SD 53.1 fl High 35.1-43.9 [facility] Comment on above: Order Comment: 304-1 Performed By: #### L 500.2500, L100.0500 ####[facility] [address] [place], [address] WBC (Bld) [#/Vol] 11.4 10*3/uL High 4.4-11.0 [facility] Comment on above: Order Comment: 304-1 Performed By: #### L 500.2500, L100.0500 ####[facility] [address] [place], [address] Carbon dioxide, total [Moles /volume] in Central venous bloodOrdered By: Prasanna Parra on 03-29-2025 CO2 [Moles/Vol] 24.0 mmol/L 21.0-32.0 [facility] Chloride assayOrdered By: Suh on 03-29-2025 Chloride [Moles/Vol] 103 mmol/L 98-108 [facility] Erythrocyte distribution wid th ratioOrdered By: Prasanna Parra on 03-29-2025 Erythrocyte distribution width (RBC) [Ratio] 15.3 % High 11.6-14.6 [facility] Erythrocyte distribution wid th standard deviationOrdered By: Prasanna Parra on 03-29-2025 Erythrocyte distribution width (RBC) [Ratio] 53.1 fl High 35.1-43.9 [facility] Glomerular filtration rate ( GFR) estimation/1.73 sq m using serum, plasma, or whole bOrdered By: Prasanna Parra on 03-29-2025 GFR/1.73 sq M.predicted among non-blacks MDRD (S/P/Bld) [Vol rate/Area] 59 mL/min/{1.73_m2} Low >60 [facility] Comment on above: mL/min/1.73m2 CKD-EP I Creatinine Equation (2020) Hematocrit Auto (Bld) [Volum e fraction]Ordered By: Prasanna Parra on 03-29-2025 Hematocrit (Bld) [Volume fraction] 28.8 % Low 37-47 [facility] Hemoglobin measurementOrdere d By: Prasanna Parra on 03-29-2025 Hemoglobin (Bld) [Mass/Vol] 8.9 g/dL Low 12.0-15.0 [facility] MCV (mean corpuscular volume ) determinationOrdered By: Prasanna Parra on 03-29-2025 MCV (RBC) [Entitic vol] 94.4 fL 81-99 [facility] Mean corpuscular hemoglobin (MCH) determinationOrdered By: Prasanna Parra on 03-29-2025 MCH (RBC) [Entitic mass] 29.2 pg 27.0-32.0 [facility] Mean corpuscular hemoglobin concentration (MCHC) determinationOrdered By: Prasanna Parra on 03-29-2025 MCHC (RBC) [Mass/Vol] 30.9 g/dL Low 32-36 [facility] Mean platelet volume determi nationOrdered By: Prasanna Parra on 03-29-2025 Platelet mean volume (Bld) [Entitic vol] 10.3 fL 6.2-12.0 [facility] Platelet countOrdered By: Suh on 03-29-2025 Platelets (Bld) [#/Vol] 415 10*3/uL 150-450 [facility] Potassium measurement (mass/ volume)Ordered By: Prasanna Parra on 03-29-2025 Potassium (Unsp spec) [Mass/Vol] 4.2 mmol/L 3.3-5.1 [facility] RBC Auto (Bld) [#/Vol]Ordere d By: Prasanna Parra on 03-29-2025 RBC (Bld) [#/Vol] 3.05 10*6/uL Low 4.2-5.4 [facility] Serum creatinine measurement (mass/volume)Ordered By: Prasanna Parra on 03-29-2025 Creatinine [Mass/Vol] 0.94 mg/dL 0.70-1.20 [facility] Serum glucose measurement (m ass/volume)Ordered By: Prasanna Parra on 03-29-2025 Glucose [Mass/Vol] 158 mg/dL High 70-99 [facility] Serum or plasma calcium yara urement (mass/volume)Ordered By: [facility] on 03-29-2025 Calcium [Mass/Vol] 9.1 mg/dL 7.6-11.0 [facility] Serum or plasma urea nitroge n measurement (mass/volume)Ordered By: Prasanna Parra on 03-29-2025 Urea nitrogen [Mass/Vol] 39 mg/dL High 4-19 [facility] Sodium levelOrdered By: Prasanna Parra on 03-29-2025 Sodium [Moles/Vol] 139 mmol/L 133-145 [facility] White blood cell (WBC) count Ordered By: Prasanna Parra on 03-29-2025 WBC (Bld) [#/Vol] 11.4 10*3/uL High 4.4-11.0 [facility] [id number] 03-24-2025 [id number] Noted dc plan for SN F placement, updated pt's home care agency via [employer] of plan to dc to SNF. Home care signing off at this time. [facility] [id number] 03-24-2025 [id number] MAR & Discharge med list transmitted and 7000 in HENs to [facility] [employer] per TCC request. [facility] [id number] [facility] BASIC METABOLIC PANELon 03-12 Anion gap [Moles/Vol] 8 mmol/L Normal 10-22 [facility] Comment on above: Performed By: #### L [id number] ####Escort Vehicle Driver: BROOKE RINCON ([id number])[facility] ([facility])[address] [place] [address] Calcium [Mass/Vol] 8.7 mg/dL Low 8.8-10.0 [facility] Comment on above: Performed By: #### L [id number] ####Escort Vehicle Driver: BROOKE RINCON ([id number])[facility] ([facility])[address] [place] [address] Chloride [Moles/Vol] 106 mmol/L Normal 98-107 [facility] Comment on above: Performed By: #### L [id number] ####Escort Vehicle Driver: BROOKE RINCON ([id number])[facility])[address] [place] [address] CO2 [Moles/Vol] 24 mmol/L Normal 23-31 [facility] Comment on above: Performed By: #### L [id number] ####Escort Vehicle Driver: BROOKE RINCON ([id number])[facility] ([facility])[address] [place] [address] Creatinine [Mass/Vol] 1.06 mg/dL Normal 0.57-1.11 [facility] Comment on above: Performed By: #### L [id number] ####Escort Vehicle Driver: BROOKE RINCON ([id number])[facility])[address] [place] [address] GLOMERULAR FILTRATION RATE ML/MIN/1.73 SQ M.PREDICTED 51.6 mL/min/1.73m*2 Low >60.0 [facility] Comment on above: Result Comment: Calc ulation based on the Chronic Kidney Disease Epidemiology Collaboration (CKD-EPI) equation refit without adjustment for race Performed By: #### L AB15 ####Escort Vehicle Driver: BROOKE RINCON ([phone])[facility])[address] [place] [address] Glucose [Mass/Vol] 187 mg/dL High 82-115 [facility] Comment on above: Performed By: #### L [id number] ####Escort Vehicle Driver: BROOKE [id number])[facility] ([facility])[address] [place] [address] Potassium [Moles/Vol] 4.4 mmol/L Normal 3.5-5.1 [facility] Comment on above: Result Comment: [facility] potassium values may be up to 0.5 mmol/L lower than serum values. Performed By: #### L AB15 ####Escort Vehicle Driver: BROOKE RINCON ([phone])[facility] ([facility])[address] [place] [address] Sodium [Moles/Vol] 138 mmol/L Normal 136-145 [facility] Comment on above: Performed By: #### L [id number] ####Escort Vehicle Driver: BROOKE RINCON ([id number])[facility] ([facility])[address] [place] [address] Urea nitrogen [Mass/Vol] 26 mg/dL High 9-23 [facility] Comment on above: Performed By: #### L [id number] ####Escort Vehicle Driver: BROOKE RINCON ([id number])[facility] [place] [address] Basic metabolic 1998 panelon 03-24-2025 Anion gap [Moles/Vol] 8 mmol/L 3 - 13 mmol/L [facility] Calcium [Mass/Vol] 8.7 mg/dL Low 8.8 - 10. 0 mg/dL [facility] Chloride [Moles/Vol] 106 mmol/L 98 - 10 7 mmol/L [facility] CO2 [Moles/Vol] 24 mmol/L 23 - 31 mmol/L [facility] Creatinine [Mass/Vol] 1.06 mg/dL 0.57 - 1.11 mg/dL [facility] GFR/1.73 sq M.predicted (S/P/Bld) [Vol rate/Area] 51.6 mL/min Low - PINF [facility] Comment on above: Calculation based on the Chronic Kidney Disease Epidemiology Collaboration (CKD-EPI) equation refit without adjustment for race Glucose [Mass/Vol] 187 mg/dL High 82 - 115 mg/dL [facility] Interpretation and review of laboratory results Abnormal [facility] Potassium [Moles/Vol] 4.4 mmol/L 3.5 - 5.1 mmol/L [facility] Comment on above: Plasma potassium ashley ues may be up to 0.5 mmol/L lower than serum values. Sodium [Moles/Vol] 138 mmol/L 136 - 145 mmol/L [facility] Urea nitrogen [Mass/Vol] 26 mg/dL High 9 - 23 mg/dL [facility] CBC W Auto Differential pane l (Bld)on 03-24-2025 Basophils (Bld) [#/Vol] 0 10*3/uL 0.0 - 0.2 10*3/uL [facility] Basophils/100 WBC (Bld) 0.4 % 0.0 - 2.0 % [facility] Eosinophils (Bld) [#/Vol] 0.4 10*3/uL 0.0 - 0.5 10*3/uL [facility] Eosinophils/100 WBC (Bld) 4 % 0.0 - 6.0 % [facility] Erythrocyte distribution width (RBC) [Ratio] 15.6 % High 11.5 - 15.0 % [facility] Hematocrit (Bld) [Volume fraction] 24.2 % Low 35.0 - 47.0 % [facility] Hemoglobin (Bld) [Mass/Vol] 7.9 g/dL Low 11.7 - 16.0 g/dL [facility] Immature granulocytes (Bld) [#/Vol] 0.1 10*3/uL High NINF - 0.1 10*3/uL [facility] Immature granulocytes/100 WBC (Bld) 0.5 % 0.0 - 2.0 % [facility] Interpretation and review of laboratory results Abnormal [facility] Lymphocytes (Bld) [#/Vol] 1.9 10*3/uL 1.0 - 4.3 10*3/uL [facility] Lymphocytes/100 WBC (Bld) 19.1 % 15.0 - 45.0 % [facility] MCH (RBC) [Entitic mass] 29.6 pg 26.0 - 34.0 pg [facility] MCHC (RBC) [Mass/Vol] 32.6 % 30.5 - 36.0 % [facility] MCV (RBC) [Entitic vol] 90.6 fL 77.0 - 99.0 fL [facility] Monocytes (Bld) [#/Vol] 0.9 10*3/uL 0.0 - 0.9 10*3/uL [facility] Monocytes/100 WBC (Bld) 9.7 % 5.0 - 13.0 % [facility] Neutrophils (Bld) [#/Vol] 6.4 10*3/uL 1.8 - 7.5 10*3/uL [facility] Neutrophils/100 WBC (Bld) 66.3 % 38.0 - 82.0 % [facility] Nucleated RBC/100 WBC (Bld) [Ratio] 0 % [facility] Platelet mean volume (Bld) [Entitic vol] 11.2 fL 9.0 - 12.7 fL [facility] Platelets (Bld) [#/Vol] 221 10*3/uL 140 - 440 10*3/uL [facility] RBC (Bld) [#/Vol] 2.67 10*6/uL Low 3.80 - 5.20 10*6/uL [facility] WBC (Bld) [#/Vol] 9.7 10*3/uL 3.6 - 10.7 10*3/uL [facility] CBC WITH AUTO DIFFERENTIALon 03-24-2025 Basophils (Bld) [#/Vol] 0.0 10*3/uL Normal 0.0-0.2 [facility] Comment on above: Performed By: #### L [id number] ####Escort Vehicle Driver: BROOKE RINCON ([phone])[facility])[address] [place] [address] Basophils/100 WBC (Bld) 0.4 % Normal 0.0-2.0 [facility] Comment on above: Performed By: #### L [id number] ####Escort Vehicle Driver: BROOKE RINCON ([id number])[facility] ([facility])[address] [place] [address] [place] Eosinophils (Bld) [#/Vol] 0.4 10*3/uL Normal 0.0-0.5 [facility] Comment on above: Performed By: #### L [id number] ####Escort Vehicle Driver: BROOKE RINCON ([id number])[facility] ([facility])[address] [place] [address] [place] Eosinophils/100 WBC (Bld) 4.0 % Normal 0.0-6.0 [facility] Comment on above: Performed By: #### L [id number] ####Escort Vehicle Driver: BROOKE RINCON ([id number])[address] Erythrocyte distribution width (RBC) [Ratio] 15.6 % High 11.5-15.0 [facility] Comment on above: Performed By: #### L [id number] ####Escort Vehicle Driver: BROOKE RINCON ([id number])[address] Hematocrit (Bld) [Volume fraction] 24.2 % Low 35.0-47.0 [facility] Comment on above: Performed By: #### L [id number] ####Escort Vehicle Driver: BROOKE RINCON ([id number])[address] Hemoglobin (Bld) [Mass/Vol] 7.9 g/dL Low 11.7-16.0 [facility] Comment on above: Performed By: #### L [id number] ####Escort Vehicle Driver: BROOKE RINCON ([id number])[address] IMMATURE GRANS % 0.5 % Normal 0.0-2.0 [facility] Comment on above: Performed By: #### L [id number] ####Escort Vehicle Driver: BROOKE RINCON ([id number])[address] IMMATURE GRANS ABSOLUTE 0.1 10*3/uL High <0.1 [facility] Comment on above: Performed By: #### L [id number] ####Escort Vehicle Driver: BROOKE RINCON ([id number])[address] Lymphocytes (Bld) [#/Vol] 1.9 10*3/uL Normal 1.0-4.3 [facility] Comment on above: Performed By: #### L [id number] ####Escort Vehicle Driver: BROOKE RINCON ([id number])[facility] ([facility])[address] [place] [address] Lymphocytes/100 WBC (Bld) 19.1 % Normal 15.0-45.0 [facility] Comment on above: Performed By: #### L [id number] ####Escort Vehicle Driver: BROOKE RINCON ([id number])[facility])[address] [place] [address] MCH (RBC) [Entitic mass] 29.6 pg Normal 26.0-34.0 [facility] Comment on above: Performed By: #### L [id number] ####Escort Vehicle Driver: BROOKE RINCON ([id number])[facility])[address] [place] [address] MCHC 32.6 % Normal 30.5-36.0 [facility] Comment on above: Performed By: #### L [id number] ####Escort Vehicle Driver: BROOKE RINCON ([id number])[facility] ([facility])[address] [place] [address] MCV (RBC) [Entitic vol] 90.6 fL Normal 77.0-99.0 [facility] Comment on above: Performed By: #### L [id number] ####Escort Vehicle Driver: BROOKE RINCON ([id number])[facility])[address] [place] [address] Monocytes (Bld) [#/Vol] 0.9 10*3/uL Normal 0.0-0.9 [facility] Comment on above: Performed By: #### L [id number] ####Escort Vehicle Driver: BROOKE RINCON ([id number])[facility])[address] [place] [address] Monocytes/100 WBC (Bld) 9.7 % Normal 5.0-13.0 [facility] Comment on above: Performed By: #### L [id number] ####Escort Vehicle Driver: BROOKE RINCON ([id number])[facility])[address] [place] [address] NEUTROPHILS ABSOLUTE 6.4 10*3/uL Normal 1.8-7.5 [facility] Comment on above: Performed By: #### L [id number] ####Escort Vehicle Driver: BROOKE RINCON ([id number])[facility] ([facility])[address] [place] [address] Neutrophils/100 WBC (Bld) 66.3 % Normal 38.0-82.0 [facility] Comment on above: Performed By: #### L [id number] ####Escort Vehicle Driver: BROOKE RINCON ([id number])[facility] ([facility])[address] [place] [address] NRBC 0.0 /100 WBCs Normal 0.0-2.0 [facility] Comment on above: Performed By: #### L [id number] ####Escort Vehicle Driver: BROOKE RINCON ([id number])[facility] [facility])[address] [place] [address] Platelet mean volume (Bld) [Entitic vol] 11.2 fL Normal 9.0-12.7 [facility] Comment on above: Performed By: #### L [id number] ####Escort Vehicle Driver: BROOKE RINCON ([id number])[facility] ([facility])[address] [place] [address] Platelets (Bld) [#/Vol] 221 10*3/uL Normal 140-440 [facility] Comment on above: Performed By: #### L [id number] ####Escort Vehicle Driver: BROOKE RINCON ([id number])[facility] ([facility])[address] [place] [address] RBC (Bld) [#/Vol] 2.67 10*6/uL Low 3.80-5.20 [facility] Comment on above: Performed By: #### L [id number] ####Escort Vehicle Driver: BROOKE RINCON ([id number])[facility] ([facility])[address] [place] [address] [place] WBC (Bld) [#/Vol] 9.7 10*3/uL Normal 3.6-10.7 [facility] Comment on above: Performed By: #### L [id number] ####Escort Vehicle Driver: BROOKE RINCON ([id number])[facility] ([facility])[address] [place] [address] Laboratory - Chemistry and C hemistry - challengeon 03-24-2025 Glucose [Mass/Vol] 213 mg/dL High 70 - 100 mg/dL [facility] Glucose [Mass/Vol] 187 mg/dL High 70 - 100 mg/dL [facility] No Panel Informationon 03-24 Interpretation and review of laboratory results Abnormal [facility] Performed by: [facility], [address] [place] [address] CLIA ID: [id number] [facility] Interpretation and review of laboratory results Abnormal [facility] Performed by: [facility], [address] [place] [address] CLIA ID: [id number] [facility] Nursing Noteon 03-24-2025 Nursing Note Normal [facility] Progress Noteon 03-24-2025 Progress Note Normal [facility] Progress Note Normal [facility] Progress Note Normal [facility] Progress Note Normal [facility] Progress Note Vancomycin therapy h as been discontinued by Brice Mota on 03/24/25. Thank you for the consult. Pharmacy signing off for vancomycin dosing. Norberto Cooper, RyanD Date: 03/24/25 Time: 7:35 AM Normal [facility] 25-hydroxyvitamin D3 [Mass/V ol]on 03-23-2025 Interpretation and review of laboratory results Normal [facility] Target concentration : 30 - 40 ng/mL; toxicity seen at concentrations >100 ng/mL Less than 20 ng/mL: Indicative of Vit D deficiency Test performed by [employer], measuring Total Vitamin D, not individual fractions. [facility] [id number] 03-23-2025 [id number] Normal [facility] BASIC METABOLIC PANELon 03-12 Anion gap [Moles/Vol] 9 mmol/L Normal 10-22 [facility] Comment on above: Performed By: #### L [id number] ####Escort Vehicle Driver: BROOKE RINCON ([id number])[facility] [place] [address] Calcium [Mass/Vol] 8.6 mg/dL Low 8.8-10.0 [facility] Comment on above: Performed By: #### L AB15 ####Escort Vehicle Driver: BROOKE RINCON ([id number])[facility] [place] [address] [place] Chloride [Moles/Vol] 108 mmol/L High 98-107 [facility] Comment on above: Performed By: #### L AB15 ####Escort Vehicle Driver: BROOKE RINCON ([id number])[facility] ([facility])[address] [place] [address] CO2 [Moles/Vol] 22 mmol/L Low 23-31 [facility] Comment on above: Performed By: #### L AB15 ####Escort Vehicle Driver: BROOKE RINCON ([id number])[facility] ([facility])[address] [place] [address] Creatinine [Mass/Vol] 1.32 mg/dL High 0.57-1.11 [facility] Comment on above: Performed By: #### L AB15 ####Escort Vehicle Driver: BROOKE RINCON ([id number])[facility] ([facility])[address] [place] [address] GLOMERULAR FILTRATION RATE ML/MIN/1.73 SQ M.PREDICTED 39.6 mL/min/1.73m*2 Low >60.0 [facility] Comment on above: Result Comment: Calc ulation based on the Chronic Kidney Disease Epidemiology Collaboration (CKD-EPI) equation refit without adjustment for race Performed By: #### L AB15 ####Escort Vehicle Driver: BROOKE RINCON ([id number])[facility] ([facility])[address] [place] [address] Glucose [Mass/Vol] 206 mg/dL High 82-115 [facility] Comment on above: Performed By: #### L AB15 ####Escort Vehicle Driver: BROOKE [id number])[facility])[address] [place] [address] Potassium [Moles/Vol] 4.5 mmol/L Normal 3.5-5.1 [facility] Comment on above: Result Comment: [facility] potassium values may be up to 0.5 mmol/L lower than serum values. Performed By: #### L AB15 ####Escort Vehicle Driver: BROOKE RINCON ([id number])[facility])[address] [place] [address] Sodium [Moles/Vol] 139 mmol/L Normal 136-145 [facility] Comment on above: Performed By: #### L AB15 ####Escort Vehicle Driver: BROOKE RINCON ([id number])[facility])[address] [place] [address] Urea nitrogen [Mass/Vol] 28 mg/dL High 9-23 [facility] Comment on above: Performed By: #### L [id number] ####Escort Vehicle Driver: BROOKE RINCON ([id number])[facility])[address] [place] [address] Basic metabolic 1998 panelon 03-23-2025 Anion gap [Moles/Vol] 9 mmol/L 3 - 13 mmol/L [facility] Calcium [Mass/Vol] 8.6 mg/dL Low 8.8 - 10. 0 mg/dL [facility] Chloride [Moles/Vol] 108 mmol/L High 98 - 10 7 mmol/L [facility] CO2 [Moles/Vol] 22 mmol/L Low 23 - 31 mmol/L [facility] Creatinine [Mass/Vol] 1.32 mg/dL High 0.57 - 1.11 mg/dL [facility] GFR/1.73 sq M.predicted (S/P/Bld) [Vol rate/Area] 39.6 mL/min Low - PINF [facility] Comment on above: Calculation based on the Chronic Kidney Disease Epidemiology Collaboration (CKD-EPI) equation refit without adjustment for race Glucose [Mass/Vol] 206 mg/dL High 82 - 115 mg/dL [facility] Interpretation and review of laboratory results Abnormal [facility] Potassium [Moles/Vol] 4.5 mmol/L 3.5 - 5.1 mmol/L [facility] Comment on above: Plasma potassium ashley ues may be up to 0.5 mmol/L lower than serum values. Sodium [Moles/Vol] 139 mmol/L 136 - 145 mmol/L [facility] Urea nitrogen [Mass/Vol] 28 mg/dL High 9 - 23 mg/dL [facility] CBC W Auto Differential pane l (Bld)on 03-23-2025 Basophils (Bld) [#/Vol] 0.1 10*3/uL 0.0 - 0.2 10*3/uL [facility] Basophils/100 WBC (Bld) 0.6 % 0.0 - 2.0 % [facility] Eosinophils (Bld) [#/Vol] 0.3 10*3/uL 0.0 - 0.5 10*3/uL [facility] Eosinophils/100 WBC (Bld) 3.2 % 0.0 - 6.0 % [facility] Erythrocyte distribution width (RBC) [Ratio] 16 % High 11.5 - 15.0 % [facility] Hematocrit (Bld) [Volume fraction] 26.1 % Low 35.0 - 47.0 % [facility] Hemoglobin (Bld) [Mass/Vol] 8.4 g/dL Low 11.7 - 16.0 g/dL [facility] Immature granulocytes (Bld) [#/Vol] 0.1 10*3/uL High NINF - 0.1 10*3/uL [facility] Immature granulocytes/100 WBC (Bld) 0.6 % 0.0 - 2.0 % [facility] Interpretation and review of laboratory results Abnormal [facility] Lymphocytes (Bld) [#/Vol] 1.5 10*3/uL 1.0 - 4.3 10*3/uL [facility] Lymphocytes/100 WBC (Bld) 17.2 % 15.0 - 45.0 % [facility] MCH (RBC) [Entitic mass] 29.6 pg 26.0 - 34.0 pg [facility] MCHC (RBC) [Mass/Vol] 32.2 % 30.5 - 36.0 % [facility] MCV (RBC) [Entitic vol] 91.9 fL 77.0 - 99.0 fL [facility] Monocytes (Bld) [#/Vol] 0.9 10*3/uL 0.0 - 0.9 10*3/uL [facility] Monocytes/100 WBC (Bld) 10.4 % 5.0 - 13.0 % [facility] Neutrophils (Bld) [#/Vol] 6 10*3/uL 1.8 - 7.5 10*3/uL [facility] Neutrophils/100 WBC (Bld) 68 % 38.0 - 82.0 % [facility] Nucleated RBC/100 WBC (Bld) [Ratio] 0 % [facility] Platelet mean volume (Bld) [Entitic vol] 11 fL 9.0 - 12.7 fL [facility] Platelets (Bld) [#/Vol] 180 10*3/uL 140 - 440 10*3/uL [facility] RBC (Bld) [#/Vol] 2.84 10*6/uL Low 3.80 - 5.20 10*6/uL [facility] WBC (Bld) [#/Vol] 8.8 10*3/uL 3.6 - 10.7 10*3/uL [facility] CBC WITH AUTO DIFFERENTIALon 03-23-2025 Basophils (Bld) [#/Vol] 0.1 10*3/uL Normal 0.0-0.2 [facility] Comment on above: Performed By: #### L [id number] ####Escort Vehicle Driver: BROOKE RINCON ([id number])[address] Basophils/100 WBC (Bld) 0.6 % Normal 0.0-2.0 [facility] Comment on above: Performed By: #### L [id number] ####Escort Vehicle Driver: BROOKE RINCON ([id number])[facility])[address] [place] [address] [place] Eosinophils (Bld) [#/Vol] 0.3 10*3/uL Normal 0.0-0.5 [facility] Comment on above: Performed By: #### L [id number] ####Escort Vehicle Driver: BROOKE RINCON ([id number])[facility])[address] [place] [address] [place] Eosinophils/100 WBC (Bld) 3.2 % Normal 0.0-6.0 [facility] Comment on above: Performed By: #### L [id number] ####Escort Vehicle Driver: BROOKE RINCON ([id number])[address] Erythrocyte distribution width (RBC) [Ratio] 16.0 % High 11.5-15.0 [facility] Comment on above: Performed By: #### L [id number] ####Escort Vehicle Driver: BROOKE RINCON ([id number])[address] Hematocrit (Bld) [Volume fraction] 26.1 % Low 35.0-47.0 [facility] Comment on above: Performed By: #### L [id number] ####Escort Vehicle Driver: BROOKE RINCON ([id number])[address] Hemoglobin (Bld) [Mass/Vol] 8.4 g/dL Low 11.7-16.0 [facility] Comment on above: Performed By: #### L [id number] ####Escort Vehicle Driver: BROOKE RINCON ([id number])[address] IMMATURE GRANS % 0.6 % Normal 0.0-2.0 [facility] Comment on above: Performed By: #### L [id number] ####Escort Vehicle Driver: BROOKE RINCON ([id number])[address] IMMATURE GRANS ABSOLUTE 0.1 10*3/uL High <0.1 [facility] Comment on above: Performed By: #### L [id number] ####Escort Vehicle Driver: BROOKE RINCON ([id number])[address] Lymphocytes (Bld) [#/Vol] 1.5 10*3/uL Normal 1.0-4.3 [facility] Comment on above: Performed By: #### L [id number] ####Escort Vehicle Driver: BROOKE RINCON ([id number])[facility] ([facility])[address] [place] [address] Lymphocytes/100 WBC (Bld) 17.2 % Normal 15.0-45.0 [facility] Comment on above: Performed By: #### L [id number] ####Escort Vehicle Driver: BROOKE RINCON ([id number])[facility])[address] [place] [address] MCH (RBC) [Entitic mass] 29.6 pg Normal 26.0-34.0 [facility] Comment on above: Performed By: #### L [id number] ####Escort Vehicle Driver: BROOKE RINCON ([id number])[facility])[address] [place] [address] MCHC 32.2 % Normal 30.5-36.0 [facility] Comment on above: Performed By: #### L [id number] ####Escort Vehicle Driver: BROOKE RINCON ([id number])[facility] ([facility])[address] [place] [address] MCV (RBC) [Entitic vol] 91.9 fL Normal 77.0-99.0 [facility] Comment on above: Performed By: #### L [id number] ####Escort Vehicle Driver: BROOKE RINCON ([id number])[facility])[address] [place] [address] Monocytes (Bld) [#/Vol] 0.9 10*3/uL Normal 0.0-0.9 [facility] Comment on above: Performed By: #### L [id number] ####Escort Vehicle Driver: BROOKE RINCON ([id number])[facility])[address] [place] [address] Monocytes/100 WBC (Bld) 10.4 % Normal 5.0-13.0 [facility] Comment on above: Performed By: #### L [id number] ####Escort Vehicle Driver: BROOKE RINCON ([id number])[facility])[address] [place] [address] NEUTROPHILS ABSOLUTE 6.0 10*3/uL Normal 1.8-7.5 [facility] Comment on above: Performed By: #### L [id number] ####Escort Vehicle Driver: BROOKE RINCON ([id number])[facility] ([facility])[address] [place] [address] Neutrophils/100 WBC (Bld) 68.0 % Normal 38.0-82.0 [facility] Comment on above: Performed By: #### L [id number] ####Escort Vehicle Driver: BROOKE RINCON ([id number])[facility] ([facility])[address] [place] [address] NRBC 0.0 /100 WBCs Normal 0.0-2.0 [facility] Comment on above: Performed By: #### L [id number] ####Escort Vehicle Driver: BROOKE RINCON ([id number])[facility] ([facility])[address] [place] [address] Platelet mean volume (Bld) [Entitic vol] 11.0 fL Normal 9.0-12.7 [facility] Comment on above: Performed By: #### L [id number] ####Escort Vehicle Driver: BROOKE RINCON ([id number])[facility] ([facility])[address] [place] [address] Platelets (Bld) [#/Vol] 180 10*3/uL Normal 140-440 [facility] Comment on above: Performed By: #### L [id number] ####Escort Vehicle Driver: BROOKE RINCON ([id number])[facility] ([facility])[address] [place] [address] RBC (Bld) [#/Vol] 2.84 10*6/uL Low 3.80-5.20 [facility] Comment on above: Performed By: #### L [id number] ####Escort Vehicle Driver: BROOKE RINCON ([id number])[facility] ([facility])[address] [place] [address] WBC (Bld) [#/Vol] 8.8 10*3/uL Normal 3.6-10.7 [facility] Comment on above: Performed By: #### L [id number] ####Escort Vehicle Driver: BROOKE RINCON ([id number])[facility] ([facility])[address] [place] [address] Laboratory - Chemistry and C hemistry - challengeon 03-23-2025 Glucose [Mass/Vol] 276 mg/dL High 70 - 100 mg/dL [facility] Glucose [Mass/Vol] 271 mg/dL High 70 - 100 mg/dL [facility] Glucose [Mass/Vol] 299 mg/dL High 70 - 100 mg/dL [facility] Glucose [Mass/Vol] 217 mg/dL High 70 - 100 mg/dL [facility] 25-hydroxyvitamin D3 [Mass/Vol] 45 ng/mL 20 - 50 ng/mL [facility] Laboratory - Drug toxicology on 03-23-2025 Vancomycin trough [Mass/Vol] 17.7 ug/mL [facility] No Panel Informationon 03-23 Interpretation and review of laboratory results Abnormal [facility] Performed by: [place] [address] CLIA ID: [id number] [facility] Interpretation and review of laboratory results Abnormal [facility] Performed by: [place] [address] CLIA ID: [id number] [facility] Interpretation and review of laboratory results Abnormal [facility] Performed by: [address] [address] CLIA ID: [id number] [facility] Interpretation and review of laboratory results Abnormal [facility] Performed by: [address] [address] CLIA ID: [id number] [facility] Progress Noteon 03-23-2025 Progress Note Normal [facility] Progress Note Normal [facility] Progress Note Normal [facility] Progress Note Normal [facility] Progress Note Normal [facility] Progress Note Normal [facility] VANCOMYCIN, AUC TIMED DOSING on 03-23-2025 VANCOMYCIN, AUC 17.7 ug/mL Normal [facility] Comment on above: Result Comment: ORDE R COMMENTS:Please draw random level at least >2 hours after the end of the last vancomycin infusion, or 30-minutes before next infusion.Toxicity is seen at concentrations >80-100 ug/mLTherapeutic (Peak) range: 20-40Therapeutic (Trough) range: 5-10 Performed By: #### L [id number] ####Escort Vehicle Driver: BROOKE RINCON ([id number])[facility] [place] [address] VITAMIN D DEFICIENCY SCREENI NG (VIT D 25)on 03-23-2025 VIT D 25-OH, TOTAL 45 ng/mL Normal See comment [facility] Comment on above: Result Comment: CARLTON R COMMENTS:Target concentration: 30 - 40 ng/mL; toxicity seen at concentrations >100 ng/mLLess than 20 ng/mL: Indicative of Vit D deficiencyTest performed by [email or web address], measuring Total Vitamin D, not individual fractions. Performed By: #### L [id number] ####Escort Vehicle Driver: BROOKE RINCON ([id number])[facility] [place] [address] Vancomycin trough [Mass/Vol] on 03-23-2025 Toxicity is seen at concentrations >80-100 ug/mL Therapeutic (Peak) range: 20-40 Therapeutic (Trough) range: 5-10 [facility] [id number] 03-22-2025 [id number] Normal [facility] [id number] 03-22-2025 [id number] Social work introduc ed self to patient. Social work completed 30 day readmission survey at bedside with patient. Normal [facility] [id number] [facility] BASIC METABOLIC PANELon 03-12 Anion gap [Moles/Vol] 9 mmol/L Normal 3-13 [facility] Comment on above: Performed By: #### L AB96, LAB15, LAB89, LAB20 ####Escort Vehicle Driver: BROOKE RINCON ([id number])[facility] ([facility])[address] [place] [address] Calcium [Mass/Vol] 8.0 mg/dL Low 8.8-10.0 [facility] Comment on above: Performed By: #### L AB96, LAB15, LAB89, LAB20 ####Escort Vehicle Driver: BROOKE RINCON ([id number])[facility] ([facility])[address] [place] [address] Chloride [Moles/Vol] 105 mmol/L Normal 98-107 [facility] Comment on above: Performed By: #### L AB96, LAB15, LAB89, LAB20 ####Escort Vehicle Driver: BROOKE RINCON ([id number])[facility] ([facility])[address] [place] [address] CO2 [Moles/Vol] 19 mmol/L Low 23-31 [facility] Comment on above: Performed By: #### L AB96, LAB15, LAB89, LAB20 ####Escort Vehicle Driver: BROOKE RINCON ([id number])[facility])[address] [place] [address] Creatinine [Mass/Vol] 1.45 mg/dL High 0.57-1.11 [facility] Comment on above: Performed By: #### L AB96, LAB15, LAB89, LAB20 ####Escort Vehicle Driver: BROOKE RINCON ([id number])[facility])[address] [place] [address] [place] GLOMERULAR FILTRATION RATE ML/MIN/1.73 SQ M.PREDICTED 35.4 mL/min/1.73m*2 Low >60.0 [facility] Comment on above: Result Comment: Calc ulation based on the Chronic Kidney Disease Epidemiology Collaboration (CKD-EPI) equation refit without adjustment for race Performed By: #### L AB96, LAB15, LAB89, LAB20 ####Escort Vehicle Driver: BROOKE RINCON ([id number])[facility])[address] [place] [address] [place] Glucose [Mass/Vol] 223 mg/dL High 82-115 [facility] Comment on above: Performed By: #### L AB96, LAB15, LAB89, LAB20 ####Escort Vehicle Driver: BROOKE RINCON ([id number])[facility] ([facility])[address] [place] [address] Potassium [Moles/Vol] 4.5 mmol/L Normal 3.5-5.1 [facility] Comment on above: Result Comment: [facility] potassium values may be up to 0.5 mmol/L lower than serum values. Performed By: #### L AB96, LAB15, LAB89, LAB20 ####Escort Vehicle Driver: BROOKE RINCON ([id number])[facility] ([facility])[address] [place] [address] Sodium [Moles/Vol] 133 mmol/L Low 136-145 [facility] Comment on above: Performed By: #### L AB96, LAB15, LAB89, LAB20 ####Escort Vehicle Driver: BROOKE RINCON ([id number])[facility])[address] [place] [address] Urea nitrogen [Mass/Vol] 37 mg/dL High 9-23 [facility] Comment on above: Performed By: #### L AB96, LAB15, LAB89, LAB20 ####Escort Vehicle Driver: BROOKE RINCON ([id number])[facility])[address] [place] [address] Basic metabolic 1998 panelon 03-22-2025 Anion gap [Moles/Vol] 9 mmol/L 3 - 13 mmol/L [facility] Calcium [Mass/Vol] 8 mg/dL Low 8.8 - 10. 0 mg/dL [facility] Chloride [Moles/Vol] 105 mmol/L 98 - 10 7 mmol/L [facility] CO2 [Moles/Vol] 19 mmol/L Low 23 - 31 mmol/L [facility] Creatinine [Mass/Vol] 1.45 mg/dL High 0.57 - 1.11 mg/dL [facility] GFR/1.73 sq M.predicted (S/P/Bld) [Vol rate/Area] 35.4 mL/min Low - PINF [facility] Comment on above: Calculation based on the Chronic Kidney Disease Epidemiology Collaboration (CKD-EPI) equation refit without adjustment for race Glucose [Mass/Vol] 223 mg/dL High 82 - 115 mg/dL [facility] Interpretation and review of laboratory results Abnormal [facility] [employer] Potassium [Moles/Vol] 4.5 mmol/L 3.5 - 5.1 mmol/L [facility] [employer] Comment on above: Plasma potassium ashley ues may be up to 0.5 mmol/L lower than serum values. Sodium [Moles/Vol] 133 mmol/L Low 136 - 145 mmol/L [facility] [employer] Urea nitrogen [Mass/Vol] 37 mg/dL High 9 - 23 mg/dL [facility] [employer] CBC W Auto Differential pane l (Bld)Ordered By: Roxy Quinonez on 03-22-2025 Basophils (Bld) [#/Vol] 0 10*3/uL 0.0 - 0.2 10*3/uL [facility] [employer] Basophils/100 WBC (Bld) 0.2 % 0.0 - 2.0 % [facility] [employer] Eosinophils (Bld) [#/Vol] 0 10*3/uL 0.0 - 0.5 10*3/uL [facility] [employer] Eosinophils/100 WBC (Bld) 0.4 % 0.0 - 6.0 % [facility] [employer] Erythrocyte distribution width (RBC) [Ratio] 16 % High 11.5 - 15.0 % [facility] [employer] Hematocrit (Bld) [Volume fraction] 20.6 % Low 35.0 - 47.0 % [facility] [employer] Hemoglobin (Bld) [Mass/Vol] 6.7 g/dL Critically low 11.7 - 16.0 g/dL [facility] [employer] Immature granulocytes (Bld) [#/Vol] 0.1 10*3/uL High NINF - 0.1 10*3/uL [facility] [employer] Immature granulocytes/100 WBC (Bld) 0.8 % 0.0 - 2.0 % [facility] [employer] Interpretation and review of laboratory results Abnormal [facility] [employer] IPF 4 [facility] [employer] Lymphocytes (Bld) [#/Vol] 1.5 10*3/uL 1.0 - 4.3 10*3/uL [facility] [employer] Lymphocytes/100 WBC (Bld) 16.5 % 15.0 - 45.0 % [facility] [employer] MCH (RBC) [Entitic mass] 29.8 pg 26.0 - 34.0 pg [facility] [employer] MCHC (RBC) [Mass/Vol] 32.5 % 30.5 - 36.0 % [facility] [employer] MCV (RBC) [Entitic vol] 91.6 fL 77.0 - 99.0 fL [facility] Monocytes (Bld) [#/Vol] 1.1 10*3/uL High 0.0 - 0.9 10*3/uL [facility] Monocytes/100 WBC (Bld) 11.8 % 5.0 - 13.0 % [facility] Neutrophils (Bld) [#/Vol] 6.4 10*3/uL 1.8 - 7.5 10*3/uL [facility] Neutrophils/100 WBC (Bld) 70.3 % 38.0 - 82.0 % [facility] Nucleated RBC/100 WBC (Bld) [Ratio] 0 % [facility] Platelet mean volume (Bld) [Entitic vol] 11.5 fL 9.0 - 12.7 fL [facility] Platelets (Bld) [#/Vol] 157 10*3/uL 140 - 440 10*3/uL [facility] RBC (Bld) [#/Vol] 2.25 10*6/uL Low 3.80 - 5.20 10*6/uL [facility] WBC (Bld) [#/Vol] 9.1 10*3/uL 3.6 - 10.7 10*3/uL [facility] CBC WITH AUTO DIFFERENTIALon 03-22-2025 Basophils (Bld) [#/Vol] 0.0 10*3/uL Normal 0.0-0.2 [facility] Comment on above: Performed By: #### L [id number] ####Escort Vehicle Driver: BROOKE [id number])[address] Basophils/100 WBC (Bld) 0.2 % Normal 0.0-2.0 [facility] Comment on above: Performed By: #### L [id number] ####Escort Vehicle Driver: BROOKE [id number])[address] Eosinophils (Bld) [#/Vol] 0.0 10*3/uL Normal 0.0-0.5 [facility] Comment on above: Performed By: #### L [id number] ####Escort Vehicle Driver: BROOKE [id number])[facility])[address] [place] [address] Eosinophils/100 WBC (Bld) 0.4 % Normal 0.0-6.0 [facility] Comment on above: Performed By: #### L [id number] ####Escort Vehicle Driver: BROOKE RINCON ([id number])[facility])[address] [place] [address] Erythrocyte distribution width (RBC) [Ratio] 16.0 % High 11.5-15.0 [facility] Comment on above: Performed By: #### L [id number] ####Escort Vehicle Driver: BROOKE RINCON ([id number])[facility])[address] [place] [address] Hematocrit (Bld) [Volume fraction] 20.6 % Low 35.0-47.0 [facility] Comment on above: Performed By: #### L [id number] ####Escort Vehicle Driver: BROOKE RINCON ([phone])[facility])[address] [place] [address] Hemoglobin (Bld) [Mass/Vol] 6.7 g/dL Critically low 11.7-16.0 [facility] Comment on above: Performed By: #### L [id number] ####Escort Vehicle Driver: BROOKE RINCON ([id number])[facility])[address] [place] [address] IMMATURE GRANS % 0.8 % Normal 0.0-2.0 [facility] Comment on above: Performed By: #### L [id number] ####Escort Vehicle Driver: BROOKE RINCON ([phone])[facility])[address] [place] [address] IMMATURE GRANS ABSOLUTE 0.1 10*3/uL High <0.1 [facility] Comment on above: Performed By: #### L [id number] ####Escort Vehicle Driver: BROOKE RINCON ([id number])[facility])[address] [place] [address] [place] IPF 4 Normal [facility] Comment on above: Performed By: #### L [id number] ####Escort Vehicle Driver: BROOKE RINCON ([phone])[facility])[address] [place] [address] Lymphocytes (Bld) [#/Vol] 1.5 10*3/uL Normal 1.0-4.3 [facility] Comment on above: Performed By: #### L [id number] ####Escort Vehicle Driver: BROOKE RINCON ([phone])[facility])[address] [place] [address] Lymphocytes/100 WBC (Bld) 16.5 % Normal 15.0-45.0 [facility] Comment on above: Performed By: #### L [id number] ####Escort Vehicle Driver: BROOKE RINCON ([id number])[facility])[address] [place] [address] MCH (RBC) [Entitic mass] 29.8 pg Normal 26.0-34.0 [facility] Comment on above: Performed By: #### L [id number] ####Escort Vehicle Driver: BROOKE RINCON ([id number])[facility])[address] [place] [address] MCHC 32.5 % Normal 30.5-36.0 [facility] Comment on above: Performed By: #### L [id number] ####Escort Vehicle Driver: BROOKE RINCON ([id number])[facility])[address] [place] [address] MCV (RBC) [Entitic vol] 91.6 fL Normal 77.0-99.0 [facility] Comment on above: Performed By: #### L [id number] ####Escort Vehicle Driver: BROOKE RINCON ([phone])[facility])[address] [place] [address] Monocytes (Bld) [#/Vol] 1.1 10*3/uL High 0.0-0.9 [facility] Comment on above: Performed By: #### L [id number] ####Escort Vehicle Driver: BROOKE [id number])[facility])[address] [place] [address] Monocytes/100 WBC (Bld) 11.8 % Normal 5.0-13.0 [facility] Comment on above: Performed By: #### L [id number] ####Escort Vehicle Driver: BROOKE RINCON ([id number])[facility])[address] [place] [address] NEUTROPHILS ABSOLUTE 6.4 10*3/uL Normal 1.8-7.5 [facility] Comment on above: Performed By: #### L [id number] ####Escort Vehicle Driver: BROOKE RINCON ([id number])[facility])[address] [place] [address] Neutrophils/100 WBC (Bld) 70.3 % Normal 38.0-82.0 [facility] Comment on above: Performed By: #### L [id number] ####Escort Vehicle Driver: BROOKE RINCON ([id number])[facility])[address] [place] [address] NRBC 0.0 /100 WBCs Normal 0.0-2.0 [facility] Comment on above: Performed By: #### L [id number] ####Escort Vehicle Driver: BROOKE RINCON ([id number])[facility])[address] [place] [address] Platelet mean volume (Bld) [Entitic vol] 11.5 fL Normal 9.0-12.7 [facility] Comment on above: Performed By: #### L [id number] ####Escort Vehicle Driver: BROOKE RINCON ([id number])[facility])[address] [place] [address] [place] Platelets (Bld) [#/Vol] 157 10*3/uL Normal 140-440 [facility] Comment on above: Performed By: #### L [id number] ####Escort Vehicle Driver: BROOKE RINCON ([id number])[facility])[address] [place] [address] [place] RBC (Bld) [#/Vol] 2.25 10*6/uL Low 3.80-5.20 [facility] Comment on above: Performed By: #### L [id number] ####Escort Vehicle Driver: BROOKE RINCON ([id number])[facility])[address] [place] [address] WBC (Bld) [#/Vol] 9.1 10*3/uL Normal 3.6-10.7 [facility] Comment on above: Performed By: #### L [id number] ####Escort Vehicle Driver: BROOKE RINCON ([phone])[facility])[address] [place] [address] CORTISOLon 03-22-2025 CORTISOL 10.7 ug/dL Normal 3.7-19.4 [facility] Comment on above: Result Comment: CARLTON R COMMENTS:Collect at 8AM +/- 1 hourBefore 10am 4.5-22.7 ug/dLAfter 5pm 1.7-14.1 ug/dL Performed By: #### L AB69, LAB68, LAB61, LAB67 ####Escort Vehicle Driver: BROOKE RINCON ([phone])[address] Cobalamin (Vitamin B12) [Mas s/Vol]on 03-22-2025 Interpretation and review of laboratory results Normal [facility] Consulton 03-22-2025 Consult Normal [facility] Consult Normal [facility] FERRITINon 03-22-2025 Ferritin [Mass/Vol] 322 ng/mL High 5-204 [facility] Comment on above: Result Comment: CARLTON R COMMENTS:Ferritin levels below 10 ng/mL have been reported as indicative of iron deficiency anemia. Performed By: #### L AB69, LAB68, LAB61, LAB67 ####Escort Vehicle Driver: BROOKE RINCON ([phone])[address] FOLATEon 03-22-2025 FOLATE RESULT 4.1 ng/mL Low 7.0-31.4 [facility] Comment on above: Performed By: #### L AB69, LAB68, LAB61, LAB67 ####Escort Vehicle Driver: BROOKE RINCON ([phone])[facility])[address] [place] [address] Ferritin [Mass/Vol]on 2024 Interpretation and review of laboratory results Abnormal [facility] Ferritin levels belo w 10 ng/mL have been reported as indicative of iron deficiency anemia. [facility] Folate [Mass/Vol]on 03-22-20 Interpretation and review of laboratory results Abnormal [facility] HAPTOGLOBINon 03-22-2025 HAPTOGLOBIN 129 mg/dL Normal 50-270 [facility] Comment on above: Performed By: #### L AB96, LAB15, LAB89, LAB20 ####Escort Vehicle Driver: BROOKE RINCON ([id number])[facility])[address] [place] [address] HEMOGLOBIN AND HEMATOCRIT, B LOODon 03-22-2025 Hematocrit (Bld) [Volume fraction] 25.6 % Low 35.0-47.0 [facility] Comment on above: Performed By: #### L AB753, [id number] ####Escort Vehicle Driver: BROOKE RINCON ([phone])[facility])[address] [place] [address] Hemoglobin (Bld) [Mass/Vol] 8.2 g/dL Low 11.7-16.0 [facility] Comment on above: Performed By: #### L AB753, [id number] ####Escort Vehicle Driver: BROOKE RINCON ([phone])[facility])[address] [place] [address] HEPATIC FUNCTION PANELon Albumin [Mass/Vol] 3.2 g/dL Low 3.4-4.8 [facility] Comment on above: Performed By: #### L AB96, LAB15, LAB89, LAB20 ####Escort Vehicle Driver: BROOKE RINCON ([phone])[facility])[address] [place] [address] ALP [Catalytic activity/Vol] 36 U/L Low 40-150 [facility] Comment on above: Performed By: #### L AB96, LAB15, LAB89, LAB20 ####Escort Vehicle Driver: BROOKE RINCON ([phone])[facility])[address] [place] [address] ALT [Catalytic activity/Vol] 9 U/L Normal <30 [facility] Comment on above: Performed By: #### L AB96, LAB15, LAB89, LAB20 ####Escort Vehicle Driver: BROOKE RINCON ([id number])[facility])[address] [place] [address] AST [Catalytic activity/Vol] 28 U/L Normal <34 [facility] Comment on above: Performed By: #### L AB96, LAB15, LAB89, LAB20 ####Escort Vehicle Driver: BROOKE RINCON ([phone])[facility])[address] [place] [address] Bilirubin [Mass/Vol] 0.6 mg/dL Normal <1.2 [facility] Comment on above: Performed By: #### L AB96, LAB15, LAB89, LAB20 ####Escort Vehicle Driver: BROOKE RINCON ([id number])[facility])[address] [place] [address] Bilirubin.indirect [Mass/Vol] 0.2 mg/dL Normal <0.5 [facility] Comment on above: Performed By: #### L AB96, LAB15, LAB89, LAB20 ####Escort Vehicle Driver: BROOKE RINCON ([phone])[facility])[address] [place] [address] Protein [Mass/Vol] 5.8 g/dL Low 6.4-8.3 [facility] Comment on above: Result Comment: Seru m protein values are higher than plasma values. Samples from recumbent persons are lower by up to 0.5 g/dL as compared to ambulatory persons. After 60 years values are lower by up to 0.2 g/dL. Performed By: #### L AB96, LAB15, LAB89, LAB20 ####Escort Vehicle Driver: BROOKE RINCON ([phone])[facility])[address] [place] [address] Hemoglobin (Bld) [Mass/Vol]o n 03-22-2025 Hematocrit (Bld) [Volume fraction] 25.6 % Low 35.0 - 47.0 % [facility] Interpretation and review of laboratory results Abnormal [facility] Hepatic function 2000 panelo n 03-22-2025 Albumin [Mass/Vol] 3.2 g/dL Low 3.4 - 4.8 g/dL [facility] ALP [Catalytic activity/Vol] 36 U/L Low 40 - 150 U/L [facility] ALT [Catalytic activity/Vol] 9 U/L NINF - 30 U/L [facility] AST [Catalytic activity/Vol] 28 [facility] Bilirubin [Mass/Vol] 0.6 mg/dL NINF - 1.2 mg/dL [facility] Bilirubin.conjugated [Mass/Vol] 0.2 mg/dL [facility] mg/dL [facility] Interpretation and review of laboratory results Abnormal [facility] Protein [Mass/Vol] 5.8 g/dL Low 6.4 - 8.3 g/dL [facility] Comment on above: Serum protein values are higher than plasma values. Samples from recumbent persons are lower by up to 0.5 g/dL as compared to ambulatory persons. After 60 years values are lower by up to 0.2 g/dL. [facility] LACTATE DEHYDROGENASEon 03-12 LDH [Catalytic activity/Vol] 216 U/L Normal 125-220 [facility] Comment on above: Result Comment: TCSi gnificant interference from hemolysis. Result integrity compromised. Interpret with caution. Performed By: #### L AB96, LAB15, LAB89, LAB20 ####Escort Vehicle Driver: BROOKE RINCON ([phone])[facility] [place] [address] LACTIC ACID WITH REFLEXon Lactate [Moles/Vol] 2.1 mmol/L Normal 0.5-2.2 [facility] Comment on above: Performed By: #### L [id number] ####Escort Vehicle Driver: BROOKE RINCON ([id number])[facility] [place] [address] Lactate [Moles/Vol] 2.3 mmol/L High 0.5-2.2 [facility] Comment on above: Performed By: #### L [id number] ####Escort Vehicle Driver: BROOKE RINCON ([id number])[facility] [place] [address] LDH Lactate to pyruvate reac tion [Catalytic activity/Vol]on 03-22-2025 Interpretation and review of laboratory results Normal [facility] Laboratory - Chemistry and C hemistry - challengeon 03-22-2025 Folate [Mass/Vol] 4.1 ng/mL Low 7.0 - 31.4 ng/mL [facility] Cobalamin (Vitamin B12) [Mass/Vol] 231 pg/mL 213 - 816 pg/mL [facility] Ferritin [Mass/Vol] 322 ng/mL High 5 - 204 ng/mL [facility] Glucose [Mass/Vol] 244 mg/dL High 70 - 100 mg/dL [facility] Glucose [Mass/Vol] 191 mg/dL High 70 - 100 mg/dL [facility] Glucose [Mass/Vol] 195 mg/dL High 70 - 100 mg/dL [facility] Glucose [Mass/Vol] 262 mg/dL High 70 - 100 mg/dL [facility] Cortisol [Mass/Vol] 10.7 ug/dL 3.7 - 19 .4 ug/dL [facility] Glucose [Mass/Vol] 220 mg/dL High 70 - 100 mg/dL [facility] Lactate [Moles/Vol] 2.1 mmol/L 0.5 - 2. 2 mmol/L [facility] LDH Lactate to pyruvate reaction [Catalytic activity/Vol] 216 U/L 125 - 220 U/L [facility] Comment on above: TC Significant interference from hemolysis. Result integrity compromised. Interpret with caution. Lactate [Moles/Vol] 2.3 mmol/L High 0.5 - 2. 2 mmol/L [facility] Laboratory - Hematology and Cell countson 03-22-2025 Haptoglobin [Mass/Vol] 129 mg/dL 50 - 270 mg/dL [facility] Hemoglobin (Bld) [Mass/Vol] 8.2 g/dL Low 11.7 - 16.0 g/dL [facility] No Panel Informationon 03-22 Interpretation and review of laboratory results Abnormal [facility] Performed by: [facility], [address] [place] [address] CLIA ID: [id number] [facility] Interpretation and review of laboratory results Abnormal [facility] Performed by: [facility], [address] [place] [address] CLIA ID: [id number] [facility] Interpretation and review of laboratory results Abnormal [facility] Performed by: [facility], [address] [place] [address] CLIA ID: [id number] [facility] Interpretation and review of laboratory results Abnormal [facility] Performed by: [facility], [address] [place] [address] CLIA ID: [id number] [facility] Interpretation and review of laboratory results Normal [facility] Before 10am 4.5-22.7 ug/dL After 5pm 1.7-14.1 ug/dL [facility] Interpretation and review of laboratory results Normal [facility] Interpretation and review of laboratory results Abnormal [facility] Performed by: [address] [address] CLIA ID: [id number] [facility] Interpretation and review of laboratory results Normal [facility] Blood Expiration Date [id number] S [facility] Crossmatch interpretation COMP [facility] Dispense Status Transfused [facility] Product Blood Type 6200 [facility] PRODUCT CODE [id number] [facility] ABO A [facility] Number [id number] [facility] RH Positive [facility] Volume 300 mL [facility] Interpretation and review of laboratory results Abnormal [facility] Progress Noteon 03-22-2025 Progress Note Normal [facility] Progress Note Normal [facility] Progress Note Normal [facility] Progress Note Normal [facility] Progress Note Normal [facility] RETICULOCYTESon 03-22-2025 Reticulocytes/100 RBC (Bld) 2.07 % Normal [facility] Comment on above: Result Comment: Newb orn < 5%Adults 0.4 - 2.0% Performed By: #### L AB753, [id number] ####Escort Vehicle Driver: BROOKE RINCON ([id number])[facility] [place] [address] Reticulocytes panel (Bld)Ord ered By: Brooke Serna on 03-22-2025 Reticulocytes/100 RBC (Bld) 2.07 % [facility] Comment on above: < 5% Adults 0.4 - 2.0% [facility] VITAMIN B12on 03-22-2025 Cobalamin (Vitamin B12) [Mass/Vol] 231 pg/mL Normal 213-816 [facility] Comment on above: Performed By: #### L AB69, LAB68, LAB61, LAB67 ####Escort Vehicle Driver: BROOKE RINCON ([phone])[facility])[address] [place] [address] [id number] 03-21-2025 [id number] Normal [facility] Airwayon 03-21-2025 Juliana Velasquez - SURFACE PLATE INSPECTOR 03/21/2025 8:15 AM Airway Date/Time: 03/21/2025 7:51 AM Reason: emergent Airway not difficult General Information and Staff Patient location during procedure: Procedural Resident/SURFACE PLATE INSPECTOR: Yordan Gannon APRN - SURFACE PLATE INSPECTOR Performed: SURFACE PLATE INSPECTOR Patient Condition Indications for airway management: anesthesia [...] 22 Number of attempts at approach: 1 [facility] Anesthesia Noteon 03-21-2025 Anesthesia Note Normal [facility] Anesthesia Note Normal [facility] BASIC METABOLIC PANELon 03-12 Anion gap [Moles/Vol] 11 mmol/L Normal 3-13 [facility] Comment on above: Performed By: #### L AB15, LAB61 ####Escort Vehicle Driver: BROOKE RNICON ([id number])[facility])[address] [place] [address] Calcium [Mass/Vol] 9.0 mg/dL Normal 8.8-10.0 [facility] Comment on above: Performed By: #### L AB15, LAB61 ####Escort Vehicle Driver: BROOKE RINCON ([id number])[facility])[address] [place] [address] Chloride [Moles/Vol] 107 mmol/L Normal 98-107 [facility] Comment on above: Performed By: #### L AB15, LAB61 ####Escort Vehicle Driver: BROOKE RINCON ([id number])[facility])[address] [place] [address] CO2 [Moles/Vol] 18 mmol/L Low 23-31 [facility] Comment on above: Performed By: #### L 15, LAB61 ####Escort Vehicle Driver: BROOKE RINCON ([phone])[facility])[address] [place] [address] Creatinine [Mass/Vol] 1.40 mg/dL High 0.57-1.11 [facility] Comment on above: Performed By: #### L AB15, LAB61 ####Escort Vehicle Driver: BROOKE RINCON ([phone])[facility])[address] [place] [address] GLOMERULAR FILTRATION RATE ML/MIN/1.73 SQ M.PREDICTED 36.9 mL/min/1.73m*2 Low >60.0 [facility] Comment on above: Result Comment: Calc ulation based on the Chronic Kidney Disease Epidemiology Collaboration (CKD-EPI) equation refit without adjustment for race Performed By: #### L AB15, LAB61 ####Escort Vehicle Driver: BROOKE RINCON ([phone])[facility] ([address] Glucose [Mass/Vol] 201 mg/dL High 82-115 [facility] Comment on above: Performed By: #### L AB15, LAB61 ####Escort Vehicle Driver: BROOKE RINCON ([phone])[facility])[address] [place] [address] Potassium [Moles/Vol] 4.5 mmol/L Normal 3.5-5.1 [facility] Comment on above: Result Comment: [facility] potassium values may be up to 0.5 mmol/L lower than serum values. Performed By: #### L AB15, LAB61 ####Escort Vehicle Driver: BROOKE RINCON ([phone])[address] Sodium [Moles/Vol] 136 mmol/L Normal 136-145 [facility] Comment on above: Performed By: #### L AB15, LAB61 ####Escort Vehicle Driver: BROOKE RINCON ([phone])[facility])[address] [place] [address] Urea nitrogen [Mass/Vol] 38 mg/dL High 9-23 [facility] Comment on above: Performed By: #### L AB15, LAB61 ####Escort Vehicle Driver: BROOKE RINCON ([id number])[facility])[address] [place] [address] BLOOD CULTUREon 03-21-2025 Bacteria identified Cx Nom (Bld) Normal [facility] Comment on above: Performed By: #### L AB462 ####Escort Vehicle Driver: BROOKE RINCON ([phone])[facility])[address] [place] [address] Bacteria identified Cx Nom (Bld) Normal [facility] Comment on above: Performed By: #### L AB462 ####Escort Vehicle Driver: BROOKE RINCON ([id number])[facility])[address] [place] [address] BLOOD GAS, VENOUSon 03-21-20 25 AMOUNT OF OXYGEN 0 Normal [facility] Comment on above: Result Comment: CARLTON Geiger COMMENTS:Assessment of oxygenation is best done with an arterial blood gas determination. Reference ranges for pO2, bicarbonate, and base excess are for mixed venous blood. Specimens drawn from a peripheral vein will often have higher values. Performed By: #### L AB79 ####Escort Vehicle Driver: BROOKE RINCON ([phone])[facility])[address] [place] [address] Base excess Calc (BldV) [Moles/Vol] -1.9000 mmol/L Normal -3.0-3.0 [facility] Comment on above: Performed By: #### L AB79 ####Escort Vehicle Driver: BROOKE RINCON ([id number])[facility])[address] [place] [address] CO2 [Moles/Vol] 25.5 mmol/L Normal 24.0-28.0 [facility] Comment on above: Performed By: #### L AB79 ####Escort Vehicle Driver: BROOKE RINCON ([phone])[facility])[address] [place] [address] HCO3 (Bld) [Moles/Vol] 24.1 mmol/L Normal 23.0-27.0 [facility] Comment on above: Performed By: #### L AB79 ####Escort Vehicle Driver: BROOKE RINCON ([id number])[facility])[address] [place] [address] Hemoglobin (Bld) [Mass/Vol] 8.2 g/dL Normal Screen only [facility] Comment on above: Performed By: #### L AB79 ####Escort Vehicle Driver: BROOKE RINCON ([id number])[facility])[address] [place] [address] OXYGEN (MM HG) IN VENOUS BLOOD 29.2 mm Hg Normal [facility] Comment on above: Performed By: #### L AB79 ####Escort Vehicle Driver: BROOKE RINCON ([id number])[facility])[address] [place] [address] [place] OXYGEN SATURATION (%) IN VENOUS BLOOD 43.1 % Normal [facility] Comment on above: Performed By: #### L AB79 ####Escort Vehicle Driver: BROOKE RINCON ([id number])[facility] ([facility])[address] [place] [address] PCO2, QASIM 46.7 mm Hg Normal 40.0-55.0 [facility] Comment on above: Performed By: #### L AB79 ####Escort Vehicle Driver: BROOKE RINCON ([id number])[facility] ([facility])[address] [place] [address] PH VENOUS 7.330 Normal 7.330-7.43 0 [facility] Comment on above: Performed By: #### L AB79 ####Escort Vehicle Driver: BROOKE RINCON ([id number])[facility] ([facility])[address] [place] [address] SOURCE OF OXYGEN None (Room Air) Normal [facility] Comment on above: Performed By: #### L AB79 ####Escort Vehicle Driver: BROOKE RINCON ([id number])[facility] ([facility])[address] [place] [address] Basic metabolic 1998 panelon 03-21-2025 Anion gap [Moles/Vol] 11 mmol/L 3 - 13 mmol/L [facility] Calcium [Mass/Vol] 9 mg/dL 8.8 - 10. 0 mg/dL [facility] Chloride [Moles/Vol] 107 mmol/L 98 - 10 7 mmol/L [facility] CO2 [Moles/Vol] 18 mmol/L Low 23 - 31 mmol/L [facility] Creatinine [Mass/Vol] 1.4 mg/dL High 0.57 - 1.11 mg/dL [facility] GFR/1.73 sq M.predicted (S/P/Bld) [Vol rate/Area] 36.9 mL/min Low - PINF [facility] Comment on above: Calculation based on the Chronic Kidney Disease Epidemiology Collaboration (CKD-EPI) equation refit without adjustment for race Glucose [Mass/Vol] 201 mg/dL High 82 - 115 mg/dL [facility] Interpretation and review of laboratory results Abnormal [facility] Potassium [Moles/Vol] 4.5 mmol/L 3.5 - 5.1 mmol/L [facility] Comment on above: Plasma potassium ashley ues may be up to 0.5 mmol/L lower than serum values. Sodium [Moles/Vol] 136 mmol/L 136 - 145 mmol/L [facility] Urea nitrogen [Mass/Vol] 38 mg/dL High 9 - 23 mg/dL [facility] CBC (HEMOGRAM)on 03-21-2025 Erythrocyte distribution width (RBC) [Ratio] 15.7 % High 11.5-15.0 [facility] Comment on above: Performed By: #### L [id number] ####Escort Vehicle Driver: BROOKE RINCON ([id number])[facility])[address] [place] [address] Hematocrit (Bld) [Volume fraction] 25.2 % Low 35.0-47.0 [facility] Comment on above: Performed By: #### L [id number] ####Escort Vehicle Driver: BROOKE RINCON ([id number])[facility])[address] [place] [address] Hemoglobin (Bld) [Mass/Vol] 8.0 g/dL Low 11.7-16.0 [facility] Comment on above: Performed By: #### L [id number] ####Escort Vehicle Driver: BROOKE RINCON ([phone])[facility])[address] [place] [address] MCH (RBC) [Entitic mass] 29.6 pg Normal 26.0-34.0 [facility] Comment on above: Performed By: #### L [id number] ####Escort Vehicle Driver: BROOKE RINCON ([id number])[address] MCHC 31.7 % Normal 30.5-36.0 [facility] Comment on above: Performed By: #### L [id number] ####Escort Vehicle Driver: BROOKE RINCON ([phone])[facility])[address] [place] [address] MCV (RBC) [Entitic vol] 93.3 fL Normal 77.0-99.0 [facility] Comment on above: Performed By: #### L [id number] ####Escort Vehicle Driver: BROOKE RINCON ([id number])[facility])[address] [place] [address] Platelet mean volume (Bld) [Entitic vol] 10.9 fL Normal 9.0-12.7 [facility] Comment on above: Performed By: #### L [id number] ####Escort Vehicle Driver: BROOKE RINCON ([id number])[facility])[address] [place] [address] Platelets (Bld) [#/Vol] 158 10*3/uL Normal 140-440 [facility] Comment on above: Performed By: #### L [id number] ####Escort Vehicle Driver: BROOKE RINCON ([phone])[facility])[address] [place] [address] RBC (Bld) [#/Vol] 2.70 10*6/uL Low 3.80-5.20 [facility] Comment on above: Performed By: #### L [id number] ####Escort Vehicle Driver: BROOKE RINCON ([id number])[facility])[address] [place] [address] WBC (Bld) [#/Vol] 10.0 10*3/uL Normal 3.6-10.7 [facility] Comment on above: Performed By: #### L [id number] ####Escort Vehicle Driver: BROOKE RINCON ([id number])[facility])[address] [place] [address] CBC W Auto Differential pane l (Bld)Ordered By: Elias Blanchard on 03-21-2025 Erythrocyte distribution width (RBC) [Ratio] 15 % 11.5 - 15.0 % [facility] Hematocrit (Bld) [Volume fraction] 29.3 % Low 35.0 - 47.0 % [facility] Hemoglobin (Bld) [Mass/Vol] 9.4 g/dL Low 11.7 - 16.0 g/dL [facility] Interpretation and review of laboratory results Abnormal [facility] MCH (RBC) [Entitic mass] 30.5 pg 26.0 - 34.0 pg [facility] MCHC (RBC) [Mass/Vol] 32.1 % 30.5 - 36.0 % [facility] MCV (RBC) [Entitic vol] 95.1 fL 77.0 - 99.0 fL [facility] Platelet mean volume (Bld) [Entitic vol] 11.4 fL 9.0 - 12.7 fL [facility] Platelets (Bld) [#/Vol] 289 10*3/uL 140 - 440 10*3/uL [facility] RBC (Bld) [#/Vol] 3.08 10*6/uL Low 3.80 - 5.20 10*6/uL [facility] WBC (Bld) [#/Vol] 12.8 10*3/uL High 3.6 - 10.7 10*3/uL [facility] CBC WITH AUTO DIFFERENTIALon 03-21-2025 Erythrocyte distribution width (RBC) [Ratio] 15.0 % Normal 11.5-15.0 [facility] Comment on above: Performed By: #### L [id number], [id number] ####Escort Vehicle Driver: BROOKE RINCON ([id number])[address] Hematocrit (Bld) [Volume fraction] 29.3 % Low 35.0-47.0 [facility] Comment on above: Performed By: #### L [id number], [id number] ####Escort Vehicle Driver: BROOKE RINCON ([id number])[facility])[address] [place] [address] Hemoglobin (Bld) [Mass/Vol] 9.4 g/dL Low 11.7-16.0 [facility] Comment on above: Performed By: #### L [id number], [id number] ####Escort Vehicle Driver: BROOKE RINCON ([id number])[facility])[address] [place] [address] MCH (RBC) [Entitic mass] 30.5 pg Normal 26.0-34.0 [facility] Comment on above: Performed By: #### L [id number], [id number] ####Escort Vehicle Driver: BROOKE RINCON ([id number])[facility])[address] [place] [address] MCHC 32.1 % Normal 30.5-36.0 [facility] Comment on above: Performed By: #### L [id number], [id number] ####Escort Vehicle Driver: BROOKE RINCON ([id number])[facility])[address] [place] [address] MCV (RBC) [Entitic vol] 95.1 fL Normal 77.0-99.0 [facility] Comment on above: Performed By: #### L [id number], [id number] ####Escort Vehicle Driver: BROOKE RINCON ([id number])[facility])[address] [place] [address] Platelet mean volume (Bld) [Entitic vol] 11.4 fL Normal 9.0-12.7 [facility] Comment on above: Performed By: #### Jaz [id number], [id number] ####Escort Vehicle Driver: BROOKE RINCON ([id number])[facility])[address] [place] [address] Platelets (Bld) [#/Vol] 289 10*3/uL Normal 140-440 [facility] Comment on above: Performed By: #### L [id number], [id number] ####Escort Vehicle Driver: BROOKE RINCON ([id number])[facility])[address] [place] [address] RBC (Bld) [#/Vol] 3.08 10*6/uL Low 3.80-5.20 [facility] Comment on above: Performed By: #### L [id number], [id number] ####Escort Vehicle Driver: BROOKE RINCON ([id number])[facility])[address] [place] [address] WBC (Bld) [#/Vol] 12.8 10*3/uL High 3.6-10.7 [facility] Comment on above: Performed By: #### L [id number], [id number] ####Escort Vehicle Driver: BROOKE RINCON ([id number])[facility] ([facility])[address] [place] [address] CBC panel Auto (Bld)Ordered By: Bushra Ruano on 03-21-2025 Erythrocyte distribution width (RBC) [Ratio] 15.7 % High 11.5 - 15.0 % [facility] Hematocrit (Bld) [Volume fraction] 25.2 % Low 35.0 - 47.0 % [facility] Hemoglobin (Bld) [Mass/Vol] 8 g/dL Low 11.7 - 16.0 g/dL [facility] Interpretation and review of laboratory results Abnormal [facility] MCH (RBC) [Entitic mass] 29.6 pg 26.0 - 34.0 pg [facility] MCHC (RBC) [Mass/Vol] 31.7 % 30.5 - 36.0 % [facility] MCV (RBC) [Entitic vol] 93.3 fL 77.0 - 99.0 fL [facility] Platelet mean volume (Bld) [Entitic vol] 10.9 fL 9.0 - 12.7 fL [facility] Platelets (Bld) [#/Vol] 158 10*3/uL 140 - 440 10*3/uL [facility] RBC (Bld) [#/Vol] 2.7 10*6/uL Low 3.80 - 5.20 10*6/uL [facility] WBC (Bld) [#/Vol] 10 10*3/uL 3.6 - 10.7 10*3/uL [facility] CORTISOLon 03-21-2025 CORTISOL 17.4 ug/dL Normal 3.7-19.4 [facility] Comment on above: Result Comment: ORDE R COMMENTS:Before 10am 4.5-22.7 ug/dLAfter 5pm 1.7-14.1 ug/dL Performed By: #### L [id number], [id number] ####Escort Vehicle Driver: BROOKE RINCON ([id number])[facility] ([facility])[address] [place] [address] CULTURE ANAEROBICon 03-21-20 25 CULTURE ANAEROBIC Normal [facility] Comment on above: Performed By: #### L [id number] ####Escort Vehicle Driver: BROOKE RINCON ([phone])[facility] ([facility])[address] [place] [address] CULTURE, AEROBIC BACTERIA WI TH GRAM STAINon 03-21-2025 CULTURE, AEROBIC BACTERIA WITH GRAM STAIN Normal [facility] Comment on above: Performed By: #### L [id number] ####Escort Vehicle Driver: BROOKE RINCON ([id number])[facility] ([facility])[address] [place] [address] Consulton 03-21-2025 Consult Normal [facility] ECG 12-LEADon 03-21-2025 ECG 12-LEAD IMPRESSION: Atrial fibrillation Nonspecific T abnormalities, lateral leads Compared to ECG 03/20/2025 15:08:18 No significant change is noted Electronically Signed On 03-21-2025 19:09:08 EDT by Marcelle Dc Normal [facility] HAPTOGLOBINon 03-21-2025 HAPTOGLOBIN 131 mg/dL Normal 50-270 [facility] Comment on above: Performed By: #### L [id number], [id number], [id number], [id number] ####Escort Vehicle Driver: BROOKE RINCON ([id number])[facility])[address] [place] [address] HEMOGLOBIN AND HEMATOCRIT, B LOODon 03-21-2025 Hematocrit (Bld) [Volume fraction] 21.4 % Low 35.0-47.0 [facility] Comment on above: Performed By: #### L [id number] ####Escort Vehicle Driver: BROOKE RINCON ([phone])[facility] ([facility])[address] [place] [address] Hemoglobin (Bld) [Mass/Vol] 6.8 g/dL Critically low 11.7-16.0 [facility] Comment on above: Performed By: #### L [id number] ####Escort Vehicle Driver: BROOKE RINCON ([id number])[facility])[address] [place] [address] HEPATIC FUNCTION PANELon 08- 10-2025 Albumin [Mass/Vol] 3.7 g/dL Normal 3.4-4.8 [facility] Comment on above: Performed By: #### L AB89, [id number], LAB20, [id number] ####Escort Vehicle Driver: BROOKE RINCON ([phone])[facility] ([facility])[address] [place] [address] ALP [Catalytic activity/Vol] 37 U/L Low 40-150 [facility] Comment on above: Performed By: #### L AB89, [id number], LAB20, [id number] ####Escort Vehicle Driver: BROOKE RINCON ([id number])[facility] ([facility])[address] [place] [address] ALT [Catalytic activity/Vol] 12 U/L Normal <30 [facility] Comment on above: Performed By: #### L AB89, [id number], [id number], [id number] ####Escort Vehicle Driver: BROOKE RINCON ([id number])[facility] ([facility])[address] [place] [address] AST [Catalytic activity/Vol] 22 U/L Normal <34 [facility] Comment on above: Performed By: #### L AB89, [id number], LAB20, [id number] ####Escort Vehicle Driver: BROOKE RINCON ([id number])[facility] ([facility])[address] [place] [address] Bilirubin [Mass/Vol] 1.2 mg/dL High <1.2 [facility] Comment on above: Performed By: #### L AB89, [id number], LAB20, [id number] ####Escort Vehicle Driver: BROOKE RINCON ([id number])[facility] ([facility])[address] [place] [address] [place] Bilirubin.indirect [Mass/Vol] 0.6 mg/dL High <0.5 [facility] Comment on above: Performed By: #### L AB89, [id number], LAB20, [id number] ####Escort Vehicle Driver: BROOKE RINCON ([phone])[facility])[address] [place] [address] Protein [Mass/Vol] 6.4 g/dL Normal 6.4-8.3 [facility] [employer] [facility] Comment on above: Result Comment: Seru m protein values are higher than plasma values. Samples from recumbent persons are lower by up to 0.5 g/dL as compared to ambulatory persons. After 60 years values are lower by up to 0.2 g/dL. Performed By: #### L AB89, [id number], LAB20, [id number] ####Escort Vehicle Driver: BROOKE RINCON ([id number])[facility] ([facility])[address] [place] [address] Hemoglobin (Bld) [Mass/Vol]O rdered By: Philly Nuñez on 03-21-2025 Hematocrit (Bld) [Volume fraction] 21.4 % Low 35.0 - 47.0 % [facility] Interpretation and review of laboratory results Abnormal [facility] Hepatic function 2000 panelo n 03-21-2025 Albumin [Mass/Vol] 3.7 g/dL 3.4 - 4.8 g/dL [facility] [employer] ALP [Catalytic activity/Vol] 37 U/L Low 40 - 150 U/L [facility] [employer] ALT [Catalytic activity/Vol] 12 U/L NINF - 30 U/L [facility] [employer] AST [Catalytic activity/Vol] 22 U/L NINF - 34 U/L [facility] [employer] Bilirubin [Mass/Vol] 1.2 mg/dL [facility] Bilirubin.conjugated [Mass/Vol] 0.6 mg/dL High [facility] mg/dL [facility] Interpretation and review of laboratory results Abnormal [facility] Protein [Mass/Vol] 6.4 g/dL 6.4 - 8.3 g/dL [facility] Comment on above: Serum protein values are higher than plasma values. Samples from recumbent persons are lower by up to 0.5 g/dL as compared to ambulatory persons. After 60 years values are lower by up to 0.2 g/dL. [facility] LACTIC ACID WITH REFLEXon Lactate [Moles/Vol] 3.0 mmol/L High 0.5-2.2 [facility] [employer] [facility] Comment on above: Performed By: #### L [id number] ####Escort Vehicle Driver: BROOKE RINCON ([id number])[facility] [place] [address] Lactate [Moles/Vol] 2.8 mmol/L High 0.5-2.2 [facility] Comment on above: Performed By: #### L [id number] ####Escort Vehicle Driver: BROOKE RINCON ([id number])[facility] [place] [address] Laboratory - Chemistry and C hemistry - challengeon 03-21-2025 Lactate [Moles/Vol] 3 mmol/L High 0.5 - 2. 2 mmol/L [facility] Procalcitonin [Mass/Vol] 0.23 ng/mL High NINF - 0.07 ng/mL [facility] Glucose [Mass/Vol] 284 mg/dL High 70 - 100 mg/dL [facility] Lactate [Moles/Vol] 2.8 mmol/L High 0.5 - 2. 2 mmol/L [facility] Magnesium [Mass/Vol] 1.7 mg/dL 1.6 - 2 .6 mg/dL [facility] Base excess Calc (BldV) [Moles/Vol] -1.9000 mmol/L -3.0 - 3.0 mmol/L [facility] CO2 (BldV) [Partial pressure] 46.7 mm[Hg] [facility] CO2 [Moles/Vol] 25.5 mmol/L 24.0 - 28.0 mmol/L [facility] HCO3 (Bld) [Moles/Vol] 24.1 mmol/L 23.0 - 27.0 mmol/L [facility] Oxygen (BldV) [Partial pressure] 29.2 mm[Hg] mm Hg [facility] pH (BldV) 7.33 [pH] 7.330 - 7.430 [facility] Glucose [Mass/Vol] 299 mg/dL High 70 - 100 mg/dL [facility] Cortisol [Mass/Vol] 17.4 ug/dL 3.7 - 19 .4 ug/dL [facility] Glucose [Mass/Vol] 201 mg/dL High 70 - 100 mg/dL [facility] Laboratory - Hematology and Cell countson 03-21-2025 Haptoglobin [Mass/Vol] 131 mg/dL 50 - 270 mg/dL [facility] Hemoglobin (Bld) [Mass/Vol] 8.2 g/dL 7.0 g/dl [facility] Lymphocytes (Bld) [#/Vol] 1.5 10*3/uL 1.0 - 4.3 10*3/uL [facility] Lymphocytes/100 WBC (Bld) 12 % Low 15 - 45 % [facility] Monocytes (Bld) [#/Vol] 0.4 10*3/uL 0.0 - 0.9 10*3/uL [facility] Monocytes/100 WBC (Bld) 3 % Low 5 - 13 % [facility] Neutrophils (Bld) [#/Vol] 10.9 10*3/uL High 1.8 - 7.5 10*3/uL [facility] RBC morphology finding Nom (Bld) Normal [facility] Segmented neutrophils/100 WBC (Bld) 85 % High 38 - 82 % [facility] Laboratory - Hematology and Cell countsOrdered By: Philly Nuñez on 03-21-2025 Hemoglobin (Bld) [Mass/Vol] 6.8 g/dL Critically low 11.7 - 16.0 g/dL [facility] MAGNESIUMon 03-21-2025 Magnesium [Mass/Vol] 1.7 mg/dL Normal 1.6-2.6 [facility] Comment on above: Result Comment: CARLTON Geiger COMMENTS:Higher values can be expected in females during menses. Performed By: #### L AB89, [id number], LAB20, [id number] ####Escort Vehicle Driver: BROOKE RINCON ([id number])[facility] ([facility])[address] [place] [address] MANUAL DIFFERENTIAL (CELLAVI CHELA)on 03-21-2025 BAND NEUTROPHILS TOTAL PER COUNTED LEUKOCYTES BY MANUAL COUNT [facility] Comment on above: Performed By: #### L [id number], [id number] ####Escort Vehicle Driver: BROOKE RINCON ([id number])[facility] ([facility])[address] [place] [address] BASOPHILS TOTAL PER COUNTED LEUKOCYTES BY MANUAL COUNT [facility] Comment on above: Performed By: #### L [id number], [id number] ####Escort Vehicle Driver: BROOKE RINCON ([id number])[facility] ([facility])[address] [place] [address] [place] BLASTS TOTAL PER COUNTED LEUKOCYTES BY MANUAL COUNT Normal [facility] Comment on above: Performed By: #### L [id number], [id number] ####Escort Vehicle Driver: BROOKE RINCON ([id number])[facility] [place] [address] [place] EOSINOPHILS TOTAL PER COUNTED LEUKOCYTES BY MANUAL COUNT Normal [facility] Comment on above: Performed By: #### L [id number], [id number] ####Escort Vehicle Driver: BROOKE RINCON ([id number])[facility] ([facility])[address] [place] [address] [place] LYMPHOCYTES (10*3/UL) IN BLOOD-CELLAVISION 1.5 10*3/uL Normal 1.0-4.3 [facility] Comment on above: Performed By: #### L [id number], [id number] ####Escort Vehicle Driver: BROOKE RINCON ([id number])[facility] [place] [address] [place] LYMPHOCYTES TOTAL PER COUNTED LEUKOCYTES BY MANUAL COUNT 12 Normal [facility] Comment on above: Performed By: #### L [id number], [id number] ####Escort Vehicle Driver: BROOKE RINCON ([id number])[facility] [place] [address] [place] LYMPHOCYTES/100 LEUKOCYTES IN BLOOD-CELLAVISION 12 % Low 15-45 [facility] Comment on above: Performed By: #### L [id number], [id number] ####Escort Vehicle Driver: BROOKE RINCON ([id number])[facility] ([facility])[address] [place] [address] [place] METAMYELOCYTES TOTAL PER COUNTED LEUKOCYTES BY MANUAL COUNT Normal [facility] Comment on above: Performed By: #### L [id number], [id number] ####Escort Vehicle Driver: BROOKE RINCON ([id number])[facility] [place] [address] [place] MONOCYTES (10*3/UL) IN BLOOD-CELLAVISION 0.4 10*3/uL Normal 0.0-0.9 [facility] Comment on above: Performed By: #### L [id number], [id number] ####Escort Vehicle Driver: BROOKE RINCON ([id number])[facility] ([facility])[address] [place] [address] [place] MONOCYTES TOTAL PER COUNTED LEUKOCYTES BY MANUAL COUNT 3 Normal [facility] Comment on above: Performed By: #### L [id number], [id number] ####Escort Vehicle Driver: BROOKE RINCON ([id number])[facility] [place] [address] [place] MONOCYTES/100 LEUKOCYTES IN BLOOD-HNERIETTA 3 % Low 5-13 [facility] Comment on above: Performed By: #### L [id number], [id number] ####Escort Vehicle Driver: BROOKE RINCON ([id number])[facility] ([facility])[address] [place] [address] [place] MYELOCYTES COUNTED BY MANUAL COUNT [facility] Comment on above: Performed By: #### L [id number], [id number] ####Escort Vehicle Driver: BROOKE RINCON ([id number])[facility] ([facility])[address] [place] [address] [place] NEUTROPHILS TOTAL PER COUNTED LEUKOCYTES BY MANUAL COUNT 84 [facility] Comment on above: Performed By: #### L [id number], [id number] ####Escort Vehicle Driver: BROOKE RINCON ([id number])[facility] ([facility])[address] [place] [address] [place] PROMYELOCYTES TOTAL PER COUNTED LEUKOCYTES BY MANUAL COUNT [facility] Comment on above: Performed By: #### L [id number], [id number] ####Escort Vehicle Driver: BROOKE RINCON ([id number])[facility] ([facility])[address] [place] [address] [place] RBC MORPHOLOGY IN BLOOD Normal [facility] Comment on above: Performed By: #### L [id number], [id number] ####Escort Vehicle Driver: BROOKE RINCON ([id number])[facility] [place] [address] SEGMENTED NEUTROPHILS (10*3/UL) IN BLOOD-CELLAVISION 10.9 10*3/uL High 1.8-7.5 [facility] Comment on above: Performed By: #### L [id number], [id number] ####Escort Vehicle Driver: BROOKE RINCON ([phone])[facility] ([facility])[address] [place] [address] SEGMENTED NEUTROPHILS/100 LEUKOCYTES-CE 85 % High 38-82 [facility] Comment on above: Performed By: #### L [id number], [id number] ####Escort Vehicle Driver: BROOKE RINCON ([id number])[facility] ([facility])[address] [place] [address] UNCLASSIFIED CELLS TOTAL PER COUNTED LEUKOCYTES BY MANUAL COUNT Normal [facility] Comment on above: Performed By: #### L [id number], [id number] ####Escort Vehicle Driver: BROOKE RINCON ([id number])[facility] ([facility])[address] [place] [address] VARIANT LYMPHOCYTES TOTAL PER COUNTED LEUKOCYTES BY MANUAL COUNT Normal [facility] Comment on above: Performed By: #### L [id number], [id number] ####Escort Vehicle Driver: BROOKE RINCON ([id number])[facility])[address] [place] [address] Magnesium [Mass/Vol]on 03-21 Interpretation and review of laboratory results Normal [facility] Higher values can be expected in females during menses. [facility] [employer] No Panel Informationon 03-21 Interpretation and review of laboratory results Normal [facility] Interpretation and review of laboratory results Abnormal [facility] Interpretation and review of laboratory results Abnormal [facility] Performed by: [place] [address] CLIA ID: [id number] [facility] Atrial fibrillation Nonspecific T abnormalities, lateral leads Compared to ECG 03/20/2025 15:08:18 No significant change is noted Electronically Signed On 03-21-2025 19:09:08 EDT by Marcelle Dc CV Marcelle Arango MD - 03/21/2025 IMPRESSION: Atrial fibrillation Nonspecific T abnormalities, lateral leads Compared to ECG 03/20/2025 15:08:18 No significant change is noted Electronically Signed On 03-21-2025 19:09:08 EDT by Marcelle Dc [facility] Interpretation and review of laboratory results Abnormal [facility] Amount Of Oxygen 0 [facility] Source Of Oxygen None (Room Air) [facility] Assessment of oxygen ation is best done with an arterial blood gas determination. Reference ranges for pO2, bicarbonate, and base excess are for mixed venous blood. Specimens drawn from a peripheral vein will often have higher values. [facility] Interpretation and review of laboratory results Abnormal [facility] Performed by: [address] [address] CLIA ID: [id number] [facility] Interpretation and review of laboratory results Normal [facility] [facility] Before 10am 4.5-22.7 ug/dL After 5pm 1.7-14.1 ug/dL [facility] Blood Expiration Date [id number] S [facility] Crossmatch interpretation COMP [facility] Dispense Status Transfused [facility] Product Blood Type 6200 [facility] PRODUCT CODE [id number] [facility] Unit ABO A [facility] Unit Number [id number] [facility] Unit RH Positive [facility] Unit Volume 300 mL [facility] There is no interpre tation needed for this exam. IMAGING Interpretation and review of laboratory results Abnormal [facility] Performed by: [facility], [address] [place] [id number] CLIA ID: [id number] [facility] Atypical Lymphocytes Manual [facility] Bands Manual [facility] Basophils Manual [facility] Blasts Manual [facility] Eosinophils Manual [facility] Interpretation and review of laboratory results Abnormal [facility] Lymphocytes Manual 12 [facility] Metamyelocytes Manual [facility] Monocytes Manual 3 [facility] Myelocytes Manual [facility] Neutrophils Manual 84 [facility] Promyelocytes Manual [facility] Unclassified Cells, Manual [facility] 2h Troponin HS (Serial 2nd Troponin) 12 ng/L NINF - 14 ng/L [facility] [employer] Comment on above: Rising or falling tr oponin delta below 2 ng/L as compared to baseline value suggests that acute cardiac injury is unlikely. Interpretation and review of laboratory results Normal [facility] Panel InformationOrdered By: Marcelle Dc on 03-21-2025 P Eastman 0 degrees [employer] Work Phone: NV Interval 0 ms [employer] Phone: QRS [place]man -14 degrees [employer] Phone: QRSD Interval 86 ms [employer] Phone: QT Interval 311 ms [employer] Phone: QTC Interval 462 ms [employer] Phone: T Wave [place]man 0 degrees Y[employer] Phone: [employer] Phone: Nursing Noteon 03-21-2025 Nursing Note Attempted x 2 nurses to obtain two sets of blood cultures but was unsuccessful. Notified rapid to help obtain blood culures x 2. Culture of the R plantar diabetic ulcer cultured. Normal [facility] Nursing Note BP has improved with blood product. Medicine team at bedside to assess pt, states she looks better. Updated son Hi. Called report and in for transport. Normal [facility] Nursing Note Unit of PRBC hanging , pt alert and talking. Normal [facility] Nursing Note Updated son Hi ove r phone on status in pacu Normal [facility] Nursing Note Order received for b lood, unit released to blood bank. Pt awake and alert at this time, carrying conversation. Normal [facility] Nursing Note Communicated critica l lab Hgb 6.[address] Jackson, Dr Canales and Dr Collado, awaiting further orders. Normal [facility] Nursing Note Notified Dr Manuel sunshine BP, order for h+h received, attempting to place second IV and obtain bloodwork Normal [facility] Nursing Note Notified Dr Manuel sunshine BP, order received for 25mg IM Ephedrine. Normal [facility] Nursing Note Second bag of albumi n hanging per order Normal [facility] Nursing Note Notified Dr Manuel sunshine hypotension, orders for albumin received Normal [facility] Nursing Note Post-op x-rays done, pt tolerated well, resting with eyes closed, awakens to voice. Normal [facility] Op Noteon 03-21-2025 Op Note Normal [facility] PROCALCITONIN TESTon 025 PROCALCITONIN 0.23 ng/mL High <0.07 [facility] Comment on above: Result Comment: CARLTON Geiger COMMENTS:PCT <0.50 = Low risk of severe sepsis and/or septic shock.PCT >2.00 = High risk of severe sepsis and/or septic shock. Performed By: #### L AB89, [id number], [id number], [id number] ####Escort Vehicle Driver: BROOKE RINCON ([id number])[address] Procalcitonin [Mass/Vol]on 0 03-21-2025 Interpretation and review of laboratory results Abnormal [facility] PCT <0.50 = Low risk of severe sepsis and/or septic shock. PCT >2.00 = High risk of severe sepsis and/or septic shock. [facility] Progress Noteon 03-21-2025 Progress Note Normal [facility] Progress Note Normal [facility] Progress Note Normal [facility] Vital signsOrdered By: Marcelle Dc on 03-21-2025 Heart rate 132 /min bpm [facility] Work Phone: Vital signson 03-21-2025 Oxygen saturation in Venous blood 43.1 % [facility] XR FEMUR 2+ VW LEFTon 2024 XR FEMUR 2+ VW LEFT Normal [facility] XR FOOT 1-2 VIEWS RIGHTon XR FOOT 1-2 VIEWS RIGHT Normal [facility] XR Femur - left 2 Viewson [...] MD Electronically Signed Date/Time: 03/21/2025 9:53 AM T [facility] Linwood Simon MD - 03/21/2025 [...] MD Electronically Signed Date/Time: 03/21/2025 9:53 AM T [facility] Radiology Study observation (narrative) [facility] XR Femur - left 2 ViewsOrder ed By: Linwood Simon on 03-21-2025 [facility] [employer] Work Phone: XR Foot - right 2 [...] MD Electronically Signed Date/Time: 03/21/2025 10:48 PM T [facility] Patient Name: HANNA NELSON : 1940 Exam Date/Time: 03/21/2025 19:44 Procedure: XR FOOT 1-2 VIEWS RIGHT Ordering Provider: PAULINO DENI Reason For Exam: diabetic ulcer L foot INDICATION: Diabetic ulcer of the left foot. VIEWS: Right foot-2 views COMPARISON: MRI right foot 01/26/2025 [facility] Priscila Mriamontes MD - 03/21/2025 Patient Name: [facility]AN[facility]ELSON : 1940 [id number] Exam Date/Time: 03/21/2025 19:44 Procedure: XR FOOT [...] Electronically Signed Date/Time: 03/21/2025 10:48 PM EDT [facility] Radiology Study observation (narrative) [facility] XR Foot - right 2 ViewsOrder ed By: Priscila Miramontes on 03-21-2025 [facility] [employer] Work Phone: BASIC METABOLIC PANELon 08-0 Anion gap [Moles/Vol] 9 mmol/L Normal 3-13 [facility] Comment on above: Performed By: #### L AB15 ####Escort Vehicle Driver: BROOKE RINCON ([id number])[address] Calcium [Mass/Vol] 8.9 mg/dL Normal 8.8-10.0 [facility] Comment on above: Performed By: #### L AB15 ####Escort Vehicle Driver: BROOKE RINCON ([id number])[facility] ([facility])[address] [place] [address] Chloride [Moles/Vol] 106 mmol/L Normal 98-107 [facility] Comment on above: Performed By: #### L AB15 ####Escort Vehicle Driver: BROOKE RINCON ([id number])[facility] ([facility])[address] [place] [address] CO2 [Moles/Vol] 20 mmol/L Low 23-31 [facility] Comment on above: Performed By: #### L AB15 ####Escort Vehicle Driver: BROOKE RINCON ([id number])[facility])[address] [place] [address] Creatinine [Mass/Vol] 1.32 mg/dL High 0.57-1.11 [facility] Comment on above: Performed By: #### L AB15 ####Escort Vehicle Driver: BROOKE RINCON ([id number])[facility] ([facility])[address] [place] [address] GLOMERULAR FILTRATION RATE ML/MIN/1.73 SQ M.PREDICTED 39.6 mL/min/1.73m*2 Low >60.0 [facility] Comment on above: Result Comment: Calc ulation based on the Chronic Kidney Disease Epidemiology Collaboration (CKD-EPI) equation refit without adjustment for race Performed By: #### L AB15 ####Escort Vehicle Driver: BROOKE RINCON ([id number])[facility] ([facility])[address] [place] [address] [place] Glucose [Mass/Vol] 216 mg/dL High 82-115 [facility] Comment on above: Performed By: #### L AB15 ####Escort Vehicle Driver: BROOKE RINCON ([id number])[facility])[address] [place] [address] Potassium [Moles/Vol] 4.5 mmol/L Normal 3.5-5.1 [facility] Comment on above: Result Comment: [facility] potassium values may be up to 0.5 mmol/L lower than serum values. Performed By: #### L AB15 ####Escort Vehicle Driver: BROOKE RINCON ([id number])[facility] ([facility])[address] [place] [address] [place] Sodium [Moles/Vol] 135 mmol/L Low 136-145 [facility] Comment on above: Performed By: #### L AB15 ####Escort Vehicle Driver: BROOKE RINCON ([id number])[facility] ([facility])[address] [place] [address] Urea nitrogen [Mass/Vol] 41 mg/dL High 9-23 [facility] Comment on above: Performed By: #### L AB15 ####Escort Vehicle Driver: BROOKE RINCON ([id number])[facility] ([facility])[address] [place] [address] Anion gap [Moles/Vol] 15 mmol/L High 3-13 [facility] Comment on above: Performed By: #### L AB62, LAB15 ####Escort Vehicle Driver: BROOKE RINCON ([id number])[facility] (SW[facility])[address] Calcium [Mass/Vol] 9.4 mg/dL Normal 8.8-10.0 [facility] Comment on above: Performed By: #### L AB62, LAB15 ####Escort Vehicle Driver: BROOKE RINCON ([id number])[facility] [place] [facility] (SWRL[facility])[address] [place] [address] [place] Chloride [Moles/Vol] 109 mmol/L High 98-107 [facility] Comment on above: Performed By: #### L AB62, LAB15 ####Escort Vehicle Driver: BROOKE RINCON ([id number])[facility] [place] [facility] (SWRL[facility])[address] [place] [address] [place] CO2 [Moles/Vol] 16 mmol/L Low 23-31 [facility] Comment on above: Performed By: #### L AB62, LAB15 ####Escort Vehicle Driver: BROOKE RINCON ([id number])[facility] [place] [facility] (SWRL[facility])[address] [place] [address] [place] Creatinine [Mass/Vol] 1.70 mg/dL High 0.57-1.11 [facility] Comment on above: Performed By: #### L LEONA, LAB15 ####Escort Vehicle Driver: BROOKE RINCON ([id number])[facility]ENTERJuliana [facility]YN[facility]DS [facility] (SWRL[facility])[address] [place] [address] [place] GLOMERULAR FILTRATION RATE ML/MIN/1.73 SQ M.PREDICTED 29.3 mL/min/1.73m*2 Low >60.0 [facility] Comment on above: Result Comment: Calc ulation based on the Chronic Kidney Disease Epidemiology Collaboration (CKD-EPI) equation refit without adjustment for race Performed By: #### Jaz DELGADILLO, LAB15 ####Escort Vehicle Driver: BROOKE RINCON ([id number])[facility]ENTERJuliana [facility] (SW[facility])[address] [place] [address] [place] Glucose [Mass/Vol] 350 mg/dL High 82-115 [facility] Comment on above: Performed By: #### Jaz DELGADILLO, LAB15 ####Escort Vehicle Driver: BROOKE RINCON ([id number])[facility]ENTERJuliana [facility] (SW[facility])[address] [place] [address] [place] Potassium [Moles/Vol] 5.0 mmol/L Normal 3.5-5.1 [facility] Comment on above: Result Comment: [facility] potassium values may be up to 0.5 mmol/L lower than serum values. Performed By: #### Jaz DELGADILLO, LAB15 ####Escort Vehicle Driver: BROOKE RINCON ([id number])[facility]ENTERJuliana [facility] (SW[facility])[address] [place] [address] [place] Sodium [Moles/Vol] 140 mmol/L Normal 136-145 [facility] Comment on above: Performed By: #### L 62, LAB15 ####Escort Vehicle Driver: BROOKE RINCON ([id number])[facility]ENTERJuliana [facility] ([facility])[address] [place] [address] [place] Urea nitrogen [Mass/Vol] 43 mg/dL High 9-23 [facility] Comment on above: Performed By: #### L AB62, LAB15 ####Escort Vehicle Driver: BROOKE RINCON ([id number])[facility] RODOLFO YOBANI (SWRL[facility])[address] [place] [address] BLOOD GAS, VENOUSon 03-20-20 25 AMOUNT OF OXYGEN 93 Normal [facility] Comment on above: Result Comment: CARLTON Geiger COMMENTS:Assessment of oxygenation is best done with an arterial blood gas determination. Reference ranges for pO2, bicarbonate, and base excess are for mixed venous blood. Specimens drawn from a peripheral vein will often have higher values. Performed By: #### L AB79 ####Escort Vehicle Driver: BROOKE RINCON ([id number])[facility] ([facility])[address] [place] [address] Base excess Calc (BldV) [Moles/Vol] -2.2000 mmol/L Normal -3.0-3.0 [facility] Comment on above: Performed By: #### L AB79 ####Escort Vehicle Driver: BROOKE RINCON ([id number])[facility] ([facility])[address] [place] [address] CO2 [Moles/Vol] 24.1 mmol/L Normal 24.0-28.0 [facility] Comment on above: Performed By: #### L AB79 ####Escort Vehicle Driver: BROOKE RINCON ([id number])[facility] ([facility])[address] [place] [address] [place] HCO3 (Bld) [Moles/Vol] 22.9 mmol/L Low 23.0-27.0 [facility] Comment on above: Performed By: #### L AB79 ####Escort Vehicle Driver: BROOKE RINCON ([id number])[facility])[address] [place] [address] Hemoglobin (Bld) [Mass/Vol] 9.8 g/dL Normal Screen only [facility] Comment on above: Performed By: #### L AB79 ####Escort Vehicle Driver: BROOKE [id number])[facility] ([facility])[address] [place] [address] OXYGEN (MM HG) IN VENOUS BLOOD 32.7 mm Hg Normal [facility] Comment on above: Performed By: #### L AB79 ####Escort Vehicle Driver: BROOKE RINCON ([id number])[facility] ([facility])[address] [place] [address] OXYGEN SATURATION (%) IN VENOUS BLOOD 50.4 % Normal [facility] Comment on above: Performed By: #### L AB79 ####Escort Vehicle Driver: BROOKE RINCON ([id number])[facility] ([facility])[address] [place] [address] PCO2, QASIM 40.3 mm Hg Normal 40.0-55.0 [facility] Comment on above: Performed By: #### L AB79 ####Escort Vehicle Driver: BROOKE RINCON ([id number])[facility] ([facility])[address] [place] [address] PH VENOUS 7.372 Normal 7.330-7.43 0 [facility] Comment on above: Performed By: #### L AB79 ####Escort Vehicle Driver: BROOKE RINCON ([id number])[facility])[address] [place] [address] SOURCE OF OXYGEN None (Room Air) Normal [facility] Comment on above: Performed By: #### L AB79 ####Escort Vehicle Driver: BROOKE RINCON ([id number])[facility])[address] [place] [address] BLOOD TYPE AND SCREEN GELon 03-20-2025 ABO GROUPING A Normal [facility] Comment on above: Performed By: #### L [id number] ####Escort Vehicle Driver: BROOKE RINCON ([id number])[facility] ([facility])[address] [place] [address] RH TYPE IN BLOOD Positive Normal [facility] Comment on above: Performed By: #### L [id number] ####Escort Vehicle Driver: BROOKE RINCON ([id number])[facility] ([facility])[address] [place] [address] Basic metabolic 1998 panelon 03-20-2025 Anion gap [Moles/Vol] 9 mmol/L 3 - 13 mmol/L [facility] [employer] Calcium [Mass/Vol] 8.9 mg/dL 8.8 - 10. 0 mg/dL [facility] Chloride [Moles/Vol] 106 mmol/L 98 - 10 7 mmol/L [facility] [employer] CO2 [Moles/Vol] 20 mmol/L Low 23 - 31 mmol/L [facility] Creatinine [Mass/Vol] 1.32 mg/dL High 0.57 - 1.11 mg/dL [facility] GFR/1.73 sq M.predicted (S/P/Bld) [Vol rate/Area] 39.6 mL/min Low - PINF [facility] [employer] Comment on above: Calculation based on the Chronic Kidney Disease Epidemiology Collaboration (CKD-EPI) equation refit without adjustment for race Glucose [Mass/Vol] 216 mg/dL High 82 - 115 mg/dL [facility] [employer] Interpretation and review of laboratory results Abnormal [facility] Potassium [Moles/Vol] 4.5 mmol/L 3.5 - 5.1 mmol/L [facility] [employer] Comment on above: Plasma potassium ashley ues may be up to 0.5 mmol/L lower than serum values. Sodium [Moles/Vol] 135 mmol/L Low 136 - 145 mmol/L [facility] [employer] Urea nitrogen [Mass/Vol] 41 mg/dL High 9 - 23 mg/dL [facility] Anion gap [Moles/Vol] 15 mmol/L High 3 - 13 mmol/L [facility] [employer] Calcium [Mass/Vol] 9.4 mg/dL 8.8 - 10. 0 mg/dL [facility] [employer] Chloride [Moles/Vol] 109 mmol/L High 98 - 10 7 mmol/L [facility] CO2 [Moles/Vol] 16 mmol/L Low 23 - 31 mmol/L [facility] Creatinine [Mass/Vol] 1.7 mg/dL High 0.57 - 1.11 mg/dL [facility] [employer] GFR/1.73 sq M.predicted (S/P/Bld) [Vol rate/Area] 29.3 mL/min Low - PINF [facility] [employer] Comment on above: Calculation based on the Chronic Kidney Disease Epidemiology Collaboration (CKD-EPI) equation refit without adjustment for race Glucose [Mass/Vol] 350 mg/dL High 82 - 115 mg/dL [facility] [employer] Potassium [Moles/Vol] 5 mmol/L 3.5 - 5.1 mmol/L [facility] Comment on above: Plasma potassium ashley ues may be up to 0.5 mmol/L lower than serum values. Sodium [Moles/Vol] 140 mmol/L 136 - 145 mmol/L [facility] [employer] Urea nitrogen [Mass/Vol] 43 mg/dL High 9 - 23 mg/dL [facility] Blood type and Crossmatch abby godfreyl (Bld)on 03-20-2025 ABO group Nom (Bld) A [facility] Blood group antibody screen GEL Ql Negative [facility] [employer] D Ag Ql (RBC) Positive [facility] CBC W Auto Differential comforte l (Bld)Ordered By: Mone García on 03-20-2025 Basophils (Bld) [#/Vol] 0 10*3/uL 0.0 - 0.2 10*3/uL [facility] Basophils/100 WBC (Bld) 0.1 % 0.0 - 2.0 % [facility] Eosinophils (Bld) [#/Vol] 0 10*3/uL 0.0 - 0.5 10*3/uL [facility] Eosinophils/100 WBC (Bld) 0 % 0.0 - 6.0 % [facility] Erythrocyte distribution width (RBC) [Ratio] 14.8 % 11.5 - 15.0 % [facility] Hematocrit (Bld) [Volume fraction] 31.3 % Low 35.0 - 47.0 % [facility] Hemoglobin (Bld) [Mass/Vol] 10.3 g/dL Low 11.7 - 16.0 g/dL [facility] Immature granulocytes (Bld) [#/Vol] 0.1 10*3/uL High NINF - 0.1 10*3/uL [facility] [employer] Immature granulocytes/100 WBC (Bld) 0.5 % 0.0 - 2.0 % [facility] Interpretation and review of laboratory results Abnormal [facility] Lymphocytes (Bld) [#/Vol] 0.9 10*3/uL Low 1.0 - 4.3 10*3/uL [facility] [employer] Lymphocytes/100 WBC (Bld) 6.2 % Low 15.0 - 45.0 % [facility] MCH (RBC) [Entitic mass] 30.2 pg 26.0 - 34.0 pg [facility] MCHC (RBC) [Mass/Vol] 32.9 % 30.5 - 36.0 % [facility] MCV (RBC) [Entitic vol] 91.8 fL 77.0 - 99.0 fL [facility] Monocytes (Bld) [#/Vol] 1.5 10*3/uL High 0.0 - 0.9 10*3/uL [facility] Monocytes/100 WBC (Bld) 10.7 % 5.0 - 13.0 % [facility] Neutrophils (Bld) [#/Vol] 11.7 10*3/uL High 1.8 - 7.5 10*3/uL [facility] Neutrophils/100 WBC (Bld) 82.5 % High 38.0 - 82.0 % [facility] Nucleated RBC/100 WBC (Bld) [Ratio] 0 % [facility] Platelet mean volume (Bld) [Entitic vol] 10.9 fL 9.0 - 12.7 fL [facility] Comment on above: MPV is a calculated measurement using platelet volume ratio Platelets (Bld) [#/Vol] 279 10*3/uL 140 - 440 10*3/uL [facility] RBC (Bld) [#/Vol] 3.41 10*6/uL Low 3.80 - 5.20 10*6/uL [facility] WBC (Bld) [#/Vol] 14.1 10*3/uL High 3.6 - 10.7 10*3/uL [facility] CBC WITH AUTO DIFFERENTIALon 03-20-2025 Basophils (Bld) [#/Vol] 0.0 10*3/uL Normal 0.0-0.2 [facility] Comment on above: Performed By: #### L [id number] ####Escort Vehicle Driver: BROOKE RINCON ([id number])[facility] RODOLFO GARCIA ([address] Basophils/100 WBC (Bld) 0.1 % Normal 0.0-2.0 [facility] Comment on above: Performed By: #### L [id number] ####Escort Vehicle Driver: BROOKE RINCON ([id number])[facility] ([facility])[address] [place] [address] Eosinophils (Bld) [#/Vol] 0.0 10*3/uL Normal 0.0-0.5 [facility] Comment on above: Performed By: #### L [id number] ####Escort Vehicle Driver: BROOKE RINCON ([id number])[facility] ([facility])[address] [place] [address] Eosinophils/100 WBC (Bld) 0.0 % Normal 0.0-6.0 [facility] Comment on above: Performed By: #### L [id number] ####Escort Vehicle Driver: BROOKE RINCON ([id number])[facility]ENTERJul[facility] ([facility])[address] [place] [address] Erythrocyte distribution width (RBC) [Ratio] 14.8 % Normal 11.5-15.0 [facility] Comment on above: Performed By: #### L [id number] ####Escort Vehicle Driver: BROOKE RINCON ([id number])[facility]ENTERJul[facility] ([facility])[address] [place] [address] Hematocrit (Bld) [Volume fraction] 31.3 % Low 35.0-47.0 [facility] Comment on above: Performed By: #### L [id number] ####Escort Vehicle Driver: BROOKE RINCON ([id number])[facility]ENTERJul[facility] ([facility])[address] [place] [address] Hemoglobin (Bld) [Mass/Vol] 10.3 g/dL Low 11.7-16.0 [facility] Comment on above: Performed By: #### L [id number] ####Escort Vehicle Driver: BROOKE RINCON ([id number])[facility]ENTERJul[facility] ([facility])[address] [place] [address] IMMATURE GRANS % 0.5 % Normal 0.0-2.0 [facility] Comment on above: Performed By: #### L [id number] ####Escort Vehicle Driver: BROOKE RINCON ([id number])[facility]ENTERJul[facility] ([facility])[address] [place] [address] IMMATURE GRANS ABSOLUTE 0.1 10*3/uL High <0.1 [facility] Comment on above: Performed By: #### L [id number] ####Escort Vehicle Driver: BROOKE RINCON ([phone])[facility] ([facility])[address] [place] [address] Lymphocytes (Bld) [#/Vol] 0.9 10*3/uL Low 1.0-4.3 [facility] Comment on above: Performed By: #### L [id number] ####Escort Vehicle Driver: BROOKE RINCON ([id number])[facility]ENTERJul[facility] ([facility])[address] [place] [address] Lymphocytes/100 WBC (Bld) 6.2 % Low 15.0-45.0 [facility] Comment on above: Performed By: #### L [id number] ####Escort Vehicle Driver: BROOKE RINCON ([id number])[facility]ENTERJul[facility] ([facility])[address] [place] [address] MCH (RBC) [Entitic mass] 30.2 pg Normal 26.0-34.0 [facility] Comment on above: Performed By: #### L [id number] ####Escort Vehicle Driver: BROOKE RINCON ([id number])[facility]ENTERJul[facility] ([facility])[address] [place] [address] MCHC 32.9 % Normal 30.5-36.0 [facility] Comment on above: Performed By: #### L [id number] ####Escort Vehicle Driver: BROOKE RINCON ([id number])[facility] [facility]ENTER[facility] REYNOLDS RITTMAN (SWRLAB)[address] [place] [address] MCV (RBC) [Entitic vol] 91.8 fL Normal 77.0-99.0 [facility] Comment on above: Performed By: #### L [id number] ####Escort Vehicle Driver: BROOKE RINCON ([phone])RODRIGO REYNOLDS RITTMAN (SWRLAB)[address] [place] [address] [place] Monocytes (Bld) [#/Vol] 1.5 10*3/uL High 0.0-0.9 [facility] Comment on above: Performed By: #### L [id number] ####Escort Vehicle Driver: BROOKE RINCON ([id number])CHRISTENA RODOLFO RITTMAN (SWRLAB)[address] [place] [address] [place] Monocytes/100 WBC (Bld) 10.7 % Normal 5.0-13.0 [facility] Comment on above: Performed By: #### L [id number] ####Escort Vehicle Driver: BROOKE RINCON ([id number])[facility]ENTERJuliana REYNOLDS RITTMAN (SWRLAB)[address] [place] [address] [place] NEUTROPHILS ABSOLUTE 11.7 10*3/uL High 1.8-7.5 [facility] Comment on above: Performed By: #### L [id number] ####Escort Vehicle Driver: BROOKE RINCON ([id number])RODRIGO REYNOLDS RITTMAN (SWRLAB)[address] [place] [address] [place] Neutrophils/100 WBC (Bld) 82.5 % High 38.0-82.0 [facility] Comment on above: Performed By: #### L [id number] ####Escort Vehicle Driver: BROOKE RINCON ([id number])RODRIGO REYNOLDS RITTMAN (SWRLAB)[address] [place] [address] [place] NRBC 0.0 /100 WBCs Normal 0.0-2.0 [facility] Comment on above: Performed By: #### L [id number] ####Escort Vehicle Driver: BROOKE RINCON ([id number])RODRIGO REYNOLDS RITTMAN (SWRLAB)[address] [place] [address] [place] Platelet mean volume (Bld) [Entitic vol] 10.9 fL Normal 9.0-12.7 [facility] Comment on above: Result Comment: MPV is a calculated measurement using platelet volume ratio Performed By: #### L [id number] ####Escort Vehicle Driver: BROOKE RINCON ([id number])[facility]ENTERJuliana REYNOLDS RITTMAN (SWRLAB)[address] [place] [address] Platelets (Bld) [#/Vol] 279 10*3/uL Normal 140-440 [facility] Comment on above: Performed By: #### L [id number] ####Escort Vehicle Driver: BROOKE RINCON ([phone])[facility]ENTERJuliana REYNOLDS RITTMAN (SWRLAB)[address] [place] [address] RBC (Bld) [#/Vol] 3.41 10*6/uL Low 3.80-5.20 [facility] Comment on above: Performed By: #### L [id number] ####Escort Vehicle Driver: BROOKE RINCON ([id number])[facility]ENTERJuliana REYNOLDS RITTMAN (SWRLAB)[address] [place] [address] WBC (Bld) [#/Vol] 14.1 10*3/uL High 3.6-10.7 [facility] Comment on above: Performed By: #### L [id number] ####Escort Vehicle Driver: BROOKE RINCON ([phone])[facility]ENTERJuliana SOLORIOTMAN (SWRLAB)[address] [place] [address] CKon 03-20-2025 CK [Catalytic activity/Vol] 253 U/L High 30-185 [facility] Comment on above: Performed By: #### L [id number] ####Escort Vehicle Driver: BROOKE RINCON ([id number])[facility]ENTERJuliana REYNOLDS RITTMAN (SWRLAB)[address] [place] [address] COMPLETE URINALYSIS WITH REF MAI TO CULTUREon 03-20-2025 BACTERIA (#/HPF) IN URINE Few Abnormal Negative [facility] Comment on above: Performed By: #### L [id number] ####Escort Vehicle Driver: BROOKE RINCON ([id number])[facility]ENTERA RODOLFO RITTMAN (SWRLAB)[address] [place] [address] [place] BILIRUBIN, TOTAL PRESENCE IN URINE Negative Normal Negative [facility] Comment on above: Performed By: #### L [id number] ####Escort Vehicle Driver: BROOKE RINCON ([id number])[facility]ENTERA RODOLFO RITTMAN (SWRLAB)[address] [place] [address] [place] Clarity (U) Clear Normal Clear [facility] Comment on above: Performed By: #### L [id number] ####Escort Vehicle Driver: BROOKE RINCON ([id number])[facility]ENTERA RODOLFO RITTMAN (SWRLAB)[address] [place] [address] Color (U) Yellow Normal Lt. Yellow [facility] Comment on above: Performed By: #### L [id number] ####Escort Vehicle Driver: BROOKE RINCON ([id number])[facility]ENTERA RODOLFO RITTMAN (SWRLAB)[address] [place] [address] [place] GLUCOSE (MG/DL) IN URINE >1,000 Abnormal Normal (<70) [facility] Comment on above: Performed By: #### L [id number] ####Escort Vehicle Driver: BROOKE RINCON ([id number])[facility] CENTERJuliana MEADRODOLFO RITTMAN (SWRLAB)[address] [place] [address] [place] HEMOGLOBIN PRESENCE IN URINE Negative Normal Negative [facility] Comment on above: Performed By: #### L [id number] ####Escort Vehicle Driver: BROOKE RINCON ([id number])[facility]A RODOLFO RITTMAN (SWRLAB)[address] [place] [address] [place] Ketones Ql (U) Trace Abnormal Negative [facility] Comment on above: Performed By: #### L [id number] ####Escort Vehicle Driver: BROOKE RINCON ([phone])[facility]ENTERA RODOLFO RITTMAN (SWRLAB)[address] [place] [address] [place] LEUKOCYTE ESTERASE PRESENCE IN URINE BY TEST STRIP Negative Normal Negative [facility] Comment on above: Performed By: #### L [id number] ####Escort Vehicle Driver: BROOKE RINCON ([id number])[facility]ENTERJuliana REYNOLDS RITTMAN (SWRLAB)[address] [place] [address] NITRITE PRESENCE IN URINE Negative Normal Negative [facility] Comment on above: Performed By: #### L [id number] ####Escort Vehicle Driver: BROOKE RINCON ([id number])[facility]ENTERJuliana REYNOLDS RITTMAN (SWRLAB)[address] [place] [address] [place] NON-SQUAMOUS EPITHELIAL (#/HPF) IN URINE 0-2 Abnormal Negative [facility] Comment on above: Performed By: #### L [id number] ####Escort Vehicle Driver: BROOKE RINCON ([id number])[facility]ENTERJuliana REYNOLDS RITTMAN (SWRLAB)[address] [place] [address] pH (U) 5.0 [pH] Normal 5.0-8.0 [facility] Comment on above: Performed By: #### L [id number] ####Escort Vehicle Driver: BROOKE RINCON ([id number])[facility]ENTERJuliana REYNOLDS RITTMAN (SWRLAB)[address] [place] [address] Protein (U) [Mass/Vol] 20 mg/dL Abnormal Negative [facility] Comment on above: Performed By: #### L [id number] ####Escort Vehicle Driver: BROOKE RINCON ([id number])[facility]ENTERJuliana REYNOLDS RITTMAN (SWRLAB)[address] [place] [address] [place] RBC (#/HPF) IN URINE SEDIMENT 0-2 Normal 0-2 [facility] Comment on above: Performed By: #### L [id number] ####Escort Vehicle Driver: BROOKE RINCON ([id number])[facility]ENTERJuliana REYNOLDS RITTMAN (SWRLAB)[address] [place] [address] Specific gravity (U) [Rel density] 1.019 Normal 1.005-1.03 0 [facility] Comment on above: Result Comment: ORDE R COMMENTS:A specimen with <=10 WBC is not consistent with inflammation. This specimen will not reflex to a urine culture. Performed By: #### L [id number] ####Escort Vehicle Driver: BROOKE RINCON ([id number])[facility]A RODOLFO RITTMAN (SWRLAB)[address] [place] [address] SQUAMOUS EPITHELIAL CELLS (#/HPF) IN URINE SEDIMENT 6-10 Abnormal 3-5 [facility] Comment on above: Performed By: #### L [id number] ####Escort Vehicle Driver: BROOKE RINCON ([id number])[facility]ENTERA RODOLFO RITTMAN (SWRLAB)[address] [place] [address] UROBILINOGEN (MG/DL) IN URINE 2 mg/dL Abnormal Normal (0-1) [facility] Comment on above: Performed By: #### L [id number] ####Escort Vehicle Driver: BROOKE RINCON ([id number])[facility]ENTERA RODOLFO RITTMAN (SWRLAB)[address] [place] [address] VOLUME OF URINE 8-12 mL Normal [facility] Comment on above: Performed By: #### L [id number] ####Escort Vehicle Driver: BROOKE RINCON ([id number])[facility]A RODOLFO RITTMAN (SWRLAB)[address] [place] [address] WBC (LEUKOCYTE) (#/HPF) IN URINE SEDIMENT 3-5 Normal 0-5 [facility] Comment on above: Performed By: #### L [id number] ####Escort Vehicle Driver: BROOKE RINCON ([id number])[facility]A RODOLFO RITTMAN (SWRLAB)[address] [place] [address] Consulton 03-20-2025 Consult Normal [facility] ECG 12-LEADon 03-20-2025 ECG 12-LEAD IMPRESSION: Atrial fibrillation w rapid ventricular response, V-rate 135 Borderline QT prolongation No acute ischemic changes Electronically Signed On 03-20-2025 15:17:51 EDT by Jennifer Perry Normal [facility] ECG 12-LEAD IMPRESSION: ATRIAL FIBRILLATION WITH RAPID VENTRICULAR RESPONSE rate 140 Prolonged QT interval No acute ischemic changes Electronically Signed On 03-20-2025 13:22:[address] Jennifer [address] [facility] ED Nursing Noteon 03-20-2025 ED Nursing Note Report to Rayna PIERSON [address] ED Nursing Note Report to ambulance crew for transfer to [facility]. Chart to them. Pt taking cell phone. Daughter taking purse and clothing home with her. Normal [facility] ED Nursing Note Dr. Orlando serranoi ng block for pain relief left hip. Pt tolerated well. Normal [facility] ED Nursing Note Pt able to void on f racture moyer. Urine sent to lab. Normal [facility] ED Nursing Note Normal [facility] ED Provider Noteon ED Provider Note [facility] HEMOGLOBIN A1Con 03-20-2025 Glucose [Mass/Vol] 148 mg/dL [facility] Comment on above: Result Comment: CARLTON Geiger COMMENTS:If not done within the last 3 [id number] values of 5.7-6.4 percent indicate an increased risk for developing diabetes mellitus. HbA1c values greater than or equal to 6.5 percent are diagnostic of diabetes mellitus. For diagnosis of diabetes in individuals without unequivocal hyperglycemia, results should be confirmed by repeat testing. Performed By: #### L [id number] ####Escort Vehicle Driver: BROOKE RINCON ([phone])[facility] RODOLFO Sylvan SourceAN ([facility]HE[facility] Health SystemsRLAB)[address] [place] [address] HEMOGLOBIN A1C 6.8 %HbA1C High <5.7 [facility] Comment on above: Result Comment: Norm al less than 5.7%Prediabetes 5.7% to 6.4%Diabetes 6.5% or higher--HgbA1C levels may not be accurate in patients who have renal disease, received recent blood transfusions, are anemic, or who have dyshemoglobinemia. Performed By: #### L [id number] ####Escort Vehicle Driver: BROOKE RINCON ([id number])[facility] Sylvan SourceAN (SWRLAB)[address] [place] [address] [place] HIGH SENSITIVITY TROPONIN, S ERIAL BASELINEon 03-20-2025 TROPONIN HS SERIAL BASELINE 13 ng/L Normal <=14 [facility] Comment on above: Result Comment: In i ndividuals presenting with symptoms > 2h, a baseline troponin <= 5 ng/L suggests acutecardiac injury is unlikely and further serial testing is generally not indicated. Performed By: #### L [id number] ####Escort Vehicle Driver: BROOKE RINCON ([id number])[facility] [place] [address] HIGH SENSITIVITY TROPONIN, S ERIAL, SECOND TESTon 03-20-2025 2H TROPONIN HS (SERIAL 2ND TROPONIN) 12 ng/L Normal <=14 [facility] Comment on above: Result Comment: Risi ng or falling troponin delta below 2 ng/L as compared to baseline value suggests thatacute cardiac injury is unlikely. Performed By: #### L [id number] ####Escort Vehicle Driver: BROOKE RINCON ([id number])[facility] [place] [address] Laboratory - Chemistry and C hemistry - challengeOrdered By: Manisha Baum on 03-20-2025 Base excess Calc (BldV) [Moles/Vol] -2.2000 mmol/L -3.0 - 3.0 mmol/L [facility] CO2 (BldV) [Partial pressure] 40.3 mm[Hg] [facility] CO2 [Moles/Vol] 24.1 mmol/L 24.0 - 28.0 mmol/L [facility] HCO3 (Bld) [Moles/Vol] 22.9 mmol/L Low 23.0 - 27.0 mmol/L [facility] Oxygen (BldV) [Partial pressure] 32.7 mm[Hg] mm Hg [facility] pH (BldV) 7.372 [pH] 7.330 - 7.430 [facility] Laboratory - Chemistry and C hemistry - challengeon 03-20-2025 Glucose [Mass/Vol] 221 mg/dL High 70 - 100 mg/dL [facility] Glucose [Mass/Vol] 233 mg/dL High 70 - 100 mg/dL [facility] Average glucose Estimated from glycated hemoglobin (Bld) [Mass/Vol] 148 mg/dL [facility] CK [Catalytic activity/Vol] 253 U/L High 30 - 185 U/L [facility] Laboratory - Coagulationon 0 03-20-2025 PT Coag (Bld) [Time] 11.6 s 9.0 - 1 2.0 s [facility] Laboratory - Hematology and Cell countsOrdered By: Manisha Baum on 03-20-2025 Hemoglobin (Bld) [Mass/Vol] 9.8 g/dL 7.0 g/dl [facility] Laboratory - Hematology and Cell countson 03-20-2025 HbA1c (Bld) [Mass fraction] 6.8 % High [facility] Comment on above: Normal less than 5.7 % Prediabetes 5.7% to 6.4% Diabetes 6.5% or higher --HgbA1C levels may not be accurate in patients who have renal disease, received recent blood transfusions, are anemic, or who have dyshemoglobinemia. No Panel Informationon 03-20 Interpretation and review of laboratory results Normal [facility] Troponin HS Serial Baseline 13 ng/L [facility] - 14 ng/L [facility] Comment on above: In individuals prese nting with symptoms > 2h, a baseline troponin <= 5 ng/L suggests acute cardiac injury is unlikely and further serial testing is generally not indicated. [facility] Interpretation and review of laboratory results Abnormal [facility] Performed by: [place] [address] CLIA ID: [id number] [facility] Interpretation and review of laboratory results Abnormal [facility] Performed by: [place] [address] CLIA ID: [id number] [facility] Interpretation and review of laboratory results Abnormal [facility] HbA1c values of 5.7- 6.4 percent indicate an increased risk for developing diabetes mellitus. HbA1c values greater than or equal to 6.5 percent are diagnostic of diabetes mellitus. For diagnosis of diabetes in individuals without unequivocal hyperglycemia, results should be confirmed by repeat testing. [facility] SocialMatica [facility] SocialMatica P [place] 0 degrees [facility] Social[employer]atica NV Interval 0 ms [facility] Social[employer]atic[employer] QRS [place] -3 degrees [facility] [employer] QRSD Interval 84 ms [facility] SocialMatica QT Interval 316 ms [facility] [employer] QTC Interval 475 ms [facility] Social[employer]atic[employer] T Wave [place] 35 degrees [facility] Atrial fibrillation w rapid ventricular response, V-rate 135 Borderline QT prolongation No acute ischemic changes Electronically Signed On 03-20-2025 15:17:51 EDT by Jennifer Verma DO - 03/20/2025 IMPRESSION: Atrial fibrillation w rapid ventricular response, V-rate 135 Borderline QT prolongation No acute ischemic changes Electronically Signed On 03-20-2025 15:17:51 EDT by Jennifer Perry [facility] P [place] 0 degrees [facility] NV Interval 0 ms [facility] QRS [place] 10 degrees [facility] QRSD Interval 93 ms [facility] QT Interval 328 ms [facility] QTC Interval 502 ms [facility] T Wave [place] 72 degrees [facility] ATRIAL FIBRILLATION WITH RAPID VENTRICULAR RESPONSE rate 140 Prolonged QT interval No acute ischemic changes Electronically Signed On 03-20-2025 13:22:28 EDT by Jennifer Verma DO - 03/20/2025 IMPRESSION: ATRIAL FIBRILLATION WITH RAPID VENTRICULAR RESPONSE rate 140 Prolonged QT interval No acute ischemic changes Electronically Signed On 03-20-2025 13:22:28 EDT by Jennifer Perry [facility] Radiology Study observation (narrative) [facility] Interpretation and review of laboratory results Abnormal [facility] Bobo Mays 03/20/2025 2:47 PM [facility] SPECIFIC POCUS ORDER Performed by: Jennifer Perry DO Authorized by: Jennifer Perry DO [facility] Bobo Mays 03/20/2025 2:47 PM Nerve Block Performed by: Jennifer Perry DO Authorized by: Jennifer Perry DO [place] protocol: Patient identity confirmed: Verbally with patient [...] Procedure completion: Tolerated well, no immediate complications [facility] No Panel InformationOrdered By: Manisha Baum on 03-20-2025 Amount Of Oxygen 93 [facility] Interpretation and review of laboratory results Abnormal [facility] Source Of Oxygen None (Room Air) [facility] Assessment of oxygen ation is best done with an arterial blood gas determination. Reference ranges for pO2, bicarbonate, and base excess are for mixed venous blood. Specimens drawn from a peripheral vein will often have higher values. [facility] Nursing Noteon 03-20-2025 Nursing Note Pts son present sammie ng admission, pts son stated he will notify pts PCP of admission to [facility]. Normal [facility] PROTHROMBIN TIMEon INR Coag (PPP) [Relative time] 1.1 {INR} Normal 0.9-1.1 [facility] Comment on above: Result Comment: Channing [...] Myocardial Infarction Performed By: #### L [id number] ####Escort Vehicle Driver: BROOKE RINCON ([id number])[address] PT Coag (PPP) [Time] 11.6 s Normal 9.0-12.0 [facility] Comment on above: Performed By: #### L [id number] ####Escort Vehicle Driver: BROOKE RINCON ([phone])[facility])[address] [place] [address] PT Coag (Bld) [Time]on 03-20 INR Coag (PPP) [Relative time] 1.1 {INR} 0.9 - 1.1 [facility] Comment on above: Recommended Anticoag ulant Therapy: [...] Interpretation and review of laboratory results Normal [facility] Urinalysis complete panel (U )on 03-20-2025 Bacteria LM.HPF (Urine sed) [#/Area] Few Abnormal Negative /HPF [facility] Bilirubin Ql (U) Negative Negative mg/dL [facility] Clarity (U) Clear Clear [facility] Color (U) Yellow Lt. Yellow [facility] Epithelial cells.squamous LM.HPF (Urine sed) [#/Area] 6-10 Abnormal [facility] Glucose Ql (U) >1,000 Abnormal Normal (<70) mg/dL [facility] Hemoglobin Ql (U) Negative Negative mg/dL [facility] Interpretation and review of laboratory results Abnormal [facility] Ketones (U) [Mass/Vol] Trace Abnormal Negat eddie mg/dL [facility] Leukocyte esterase Test strip Ql (U) Negative Negative Baljit/uL [facility] Nitrite Ql (U) Negative Negative [facility] Non-Squamous Epithalial Cells, Urine 0-2 Abnormal Negative /HPF [facility] pH (U) 5.0 [pH] 5.0 - 8.0 pH [facility] Protein (U) [Mass/Vol] 20 mg/dL Abnormal Negative [facility] RBC LM.HPF (Urine sed) [#/Area] 0-2 [facility] Specific gravity (U) [Rel density] 1.019 1.005 - 1.030 [facility] Urobilinogen (U) [Mass/Vol] 2 mg/dL Abnormal Normal (0-1) [facility] Volume, Urine 8-12 mL [facility] WBC LM.HPF (Urine sed) [#/Area] 3-5 [facility] A specimen with <=10 WBC is not consistent with inflammation. This specimen will not reflex to a urine culture. [facility] Vital signsOrdered By: Jatinder Baum on 03-20-2025 Oxygen saturation in Venous blood 50.4 % [facility] Vital signson 03-20-2025 Heart rate 135 /min bpm [facility] Heart rate 140 /min bpm [facility] XR Chest Single viewon 03-20 No acute abnormality . Report Dictated on Electronically Signed By: Josue Fields MD Electronically Signed Date/Time: 03/20/2025 1:23 PM T [facility] Patient Name: HANNA NELSON : 1940 [...] degenerative changes of the visualized thoracic spine. [facility] Josue Fields MD - 03/20/2025 Patient Name: [...] Electronically Signed Date/Time: 03/20/2025 1:23 PM EDT [facility] XR FEMUR 2+ VW LEFTon 2024 XR FEMUR 2+ VW LEFT Normal [facility] XR Femur - left 2 Viewson 1. No acute osseous abnormality. 2. 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 Report Dictated on Electronically Signed By: Rajesh Cristina MD Electronically Signed Date/Time: 03/20/2025 7:40 PM EDT [facility] Patient Name: HANNA NELSON : [...] of the knee. Soft tissues grossly unremarkable. [facility] Rajesh Cristina MD - 03/20/2025 Patient [...] Electronically Signed Date/Time: 03/20/2025 7:40 PM EDT [facility] XR Femur - left 2 ViewsOrder ed By: Rajesh Cristina on 03-20-2025 [employer] Work Phone: XR Hip - left 3 [...] Electronically Signed Date/Time: 03/20/2025 1:30 PM EDT [facility] Patient Name: HANNA NELSON : 1940 Exam Date/Time: 03/20/2025 13:00 Procedure: XR HIP 2 OR 3 VW LEFT Ordering Provider: PERRY MICHAEL Reason For Exam: prob fx LEFT HIP RADIOGRAPH: CLINICAL INDICATION: prob fx. Left hip pain TECHNIQUE: AP and Lateral views of the left hip COMPARISON: Abdomen and pelvis 01/26/2025. [facility] Josue Fields MD - 03/20/2025 [...] Electronically Signed Date/Time: 03/20/2025 1:30 PM EDT [facility] XR Hip - left 3 ViewsOrdered By: Josue Fields on 03-20-2025 [employer] Work Phone: XR Tibia and Fibula - [...] Electronically Signed Date/Time: 03/20/2025 1:33 PM EDT [facility] Patient Name: HANNA NELSON : 1940 Exam Date/Time: 03/20/2025 13:00 Procedure: XR TIBIA FIBULA 2 VIEWS RIGHT Ordering Provider: PERRY MICHAEL Reason For Exam: trauma RIGHT TIBIA AND FIBULA RADIOGRAPH CLINICAL INDICATION: trauma. Right leg pain TECHNIQUE: Frontal and lateral views of the right tibia and fibula COMPARISON: None. [facility] Josue Fields MD - 03/20/2025 Patient [...] Electronically Signed Date/Time: 03/20/2025 1:33 PM EDT [employer] BASIC METABOLIC PANELon 0 Anion gap [Moles/Vol] 10 mmol/L Normal 3-13 [facility] Comment on above: Performed By: #### L [id number] ####Escort Vehicle Driver: BROOKE RINCON ([id number])[facility])[address] [place] [address] Calcium [Mass/Vol] 8.9 mg/dL Normal 8.8-10.0 [facility] Comment on above: Performed By: #### L [id number] ####Escort Vehicle Driver: BROOKE RINCON ([phone])[facility] ([facility])[address] [place] [address] Chloride [Moles/Vol] 111 mmol/L High 98-107 [facility] Comment on above: Performed By: #### L [id number] ####Escort Vehicle Driver: BROOKE RINCON ([phone])[facility] ([facility])[address] [place] [address] CO2 [Moles/Vol] 18 mmol/L Low 23-31 [facility] Comment on above: Performed By: #### L [id number] ####Escort Vehicle Driver: BROOKE RINCON ([phone])[facility] ([facility])[address] [place] [address] Creatinine [Mass/Vol] 1.10 mg/dL Normal 0.57-1.11 [facility] Comment on above: Performed By: #### L AB15 ####Escort Vehicle Driver: BROOKE RINCON ([phone])[facility])[address] [place] [address] [place] GLOMERULAR FILTRATION RATE ML/MIN/1.73 SQ M.PREDICTED 49.3 mL/min/1.73m*2 Low >60.0 [facility] Comment on above: Result Comment: Calc ulation based on the Chronic Kidney Disease Epidemiology Collaboration (CKD-EPI) equation refit without adjustment for race Performed By: #### L [id number] ####Escort Vehicle Driver: BROOKE RINCON ([id number])[facility] ([facility])[address] [place] [address] [place] Glucose [Mass/Vol] 107 mg/dL Normal 82-115 [facility] Comment on above: Performed By: #### L [id number] ####Escort Vehicle Driver: BROOKE RINCON ([id number])[facility])[address] [place] [address] Potassium [Moles/Vol] 4.4 mmol/L Normal 3.5-5.1 [facility] Comment on above: Result Comment: [facility] potassium values may be up to 0.5 mmol/L lower than serum values. Performed By: #### L [id number] ####Escort Vehicle Driver: BROOKE RINCON ([id number])[facility] ([facility])[address] [place] [address] Sodium [Moles/Vol] 139 mmol/L Normal 136-145 [facility] Comment on above: Performed By: #### L [id number] ####Escort Vehicle Driver: BROOKE RINCON ([id number])[facility])[address] [place] [address] Urea nitrogen [Mass/Vol] 35 mg/dL High 9-23 [facility] Comment on above: Performed By: #### L [id number] ####Escort Vehicle Driver: BROOKE RINCON ([id number])[facility])[address] [place] [address] Basic metabolic 1998 panelon 03-15-2025 Anion gap [Moles/Vol] 10 mmol/L 3 - 13 mmol/L [facility] Calcium [Mass/Vol] 8.9 mg/dL 8.8 - 10. 0 mg/dL [facility] Chloride [Moles/Vol] 111 mmol/L High 98 - 10 7 mmol/L [facility] CO2 [Moles/Vol] 18 mmol/L Low 23 - 31 mmol/L [facility] Creatinine [Mass/Vol] 1.1 mg/dL 0.57 - 1.11 mg/dL [facility] GFR/1.73 sq M.predicted (S/P/Bld) [Vol rate/Area] 49.3 mL/min Low - PINF [facility] Comment on above: Calculation based on the Chronic Kidney Disease Epidemiology Collaboration (CKD-EPI) equation refit without adjustment for race Glucose [Mass/Vol] 107 mg/dL 82 - 115 mg/dL [facility] Interpretation and review of laboratory results Abnormal [facility] Potassium [Moles/Vol] 4.4 mmol/L 3.5 - 5.1 mmol/L [facility] Comment on above: Plasma potassium ashley ues may be up to 0.5 mmol/L lower than serum values. Sodium [Moles/Vol] 139 mmol/L 136 - 145 mmol/L [facility] Urea nitrogen [Mass/Vol] 35 mg/dL High 9 - 23 mg/dL [facility] Consulton 03-15-2025 Consult Normal [facility] Laboratory - Chemistry and C hemistry - challengeon 03-15-2025 Glucose [Mass/Vol] 149 mg/dL High 70 - 100 mg/dL [facility] Glucose [Mass/Vol] 123 mg/dL High 70 - 100 mg/dL [facility] No Panel Informationon 03-15 Interpretation and review of laboratory results Abnormal [facility] Performed by: [address] [address] CLIA ID: [id number] [facility] Interpretation and review of laboratory results Abnormal [facility] Performed by: [facility], [address] [place] [id number] CLIA ID: [id number] [facility] Nursing Noteon 03-15-2025 Nursing Note Ok for discharge, HL and tele have been discontinued. Reviewed home going instructions. States she understands and has no questions. Has belongings. Awaiting ride home. Normal [facility] Progress Noteon 03-15-2025 Progress Note Normal [facility] Progress Note Normal [facility] US Heart TransthoracicOrdere d By: Vero Byrd on 03-15-2025 Aortic Arch 3.6 cm [facility] [employer] Work Phone: Aortic Sinus Valsalva 3.3 cm [facility] [employer] Work Phone: Aortic Sinus Valsalva Index 1.58 cm/m2 [facility] [employer] Phone: Aortic valve Mean systole pressure gradient by US.doppler derived full Bernoulli 3 mmHg [facility] [employer] Phone: Aortic valve Orifice area by US 2.8 cm2 [facility] [employer] Phone: Aortic valve Peak systolic flow by US.doppler 0.9 m/s [facility] [employer] Work Phone: AR Max Velocity PISA 4.2 m/s [facility] [employer] Work Phone: [phone] AR PHT 574.9 ms [facility] [employer] Work Phone: [phone] Ascending Aorta 3.5 cm [facility] [employer] Work Phone: [phone] Ascending Aorta Index 1.67 cm/m2 [facility] [employer] Work Phone: [phone] AV Area by Peak Velocity 1.1 cm2 [facility] [employer] Work Phone: [phone] AV Area by VTI 1.1 cm2 [facility] [employer] Work Phone: [phone] AV Peak Gradient 6 mmHg [facility] [employer] Work Phone: [phone] AV Peak Velocity 1.2 m/s [facility] [employer] Work Phone: [phone] AV Velocity Ratio 0.42 [facility] [employer] Work Phone: [phone] AV VTI 27 cm [facility] [employer] Work Phone: [phone] BRAD/BSA Peak Velocity 0.5 cm2/m2 [facility] [employer] Work Phone: BRAD/BSA VTI 0.5 cm2/m2 [facility] [employer] Work Phone: [phone] E/E' Lateral 19.17 [facility] [employer] Work Phone: [phone] E/E' Ratio (Averaged) 16.77 [facility] [employer] Work Phone: [phone] E/E' Septal 14.38 [facility] [employer] Work Phone: Est. RA Pressure 3 mmHg [facility] [employer] Work Phone: [phone] Fractional Shortening 2D 28 % 28 - 44 % [facility] [employer] Work Phone: Interpretation and review of laboratory results Abnormal [facility] [employer] Work Phone: IVC Diameter 1.5 cm [facility] [employer] Work Phone: [phone] IVSd 1 cm Abnormal 0.6 - 0.9 cm [facility] [employer] Work Phone: LA Diameter 4.4 cm [facility] [employer] Work Phone: [phone] LA Size Index 2.11 cm/m2 [facility] [employer] Work Phone: [phone] LA Volume 2C 64 mL Abnormal 22 - 52 mL [facility] [employer] Work Phone: [phone] LA Volume 4C 81 mL Abnormal 22 - 52 mL [facility] [employer] Work Phone: [phone] LA Volume A/L 82 mL [facility] [employer] Work Phone: LA Volume BP 78 mL Abnormal 22 - 52 mL [facility] [employer] Work Phone: LA Volume Index 2C 31 mL/m2 16 - 34 mL/m2 [facility] [employer] Work Phone: [phone] LA Volume Index 4C 39 mL/m2 Abnormal 16 - 34 mL/m2 [facility] [employer] Work Phone: [phone] LA Volume Index A/L 39 mL/m2 16 - 34 mL/m2 [facility] [employer] Work Phone: [phone] LA Volume Index BP 37 ml/m2 Abnormal 16 - 34 ml/m2 [facility] [employer] Work Phone: Left ventricular Ejection fraction by US.2D+Calculated by biplane method of disks 57 % 55 - 100 % [facility] [employer] Work Phone: [phone] LV E' Lateral Velocity 6 cm/s [facility] [employer] Work Phone: [phone] LV E' Septal Velocity 8 cm/s [facility] [employer] Work Phone: LV EDV A2C 53 mL [facility] [employer] Work Phone: [phone] LV EDV A4C 94 mL [facility] [employer] Work Phone: [phone] LV EDV BP 72 mL 56 - 104 mL [facility] [employer] Work Phone: LV EDV Index A2C 25 mL/m2 [facility] [employer] Work Phone: [phone] LV EDV Index A4C 45 mL/m2 [facility] [employer] Work Phone: [phone] LV EDV Index BP 34 mL/m2 [facility] [employer] Work Phone: [phone] LV Ejection Fraction A2C 63 % [facility] [employer] Work Phone: [phone] LV Ejection Fraction A4C 49 % [facility] [employer] Work Phone: [phone] LV ESV A2C 20 mL [facility] [employer] Work Phone: LV ESV A4C 47 mL [employer] Work Phone: LV ESV BP 31 mL 19 - 49 mL [employer] Work Phone: [phone] LV ESV Index A2C 10 mL/m2 [employer] Work Phone: [phone] LV ESV Index A4C 22 mL/m2 [employer] Work Phone: [phone] LV ESV Index BP 15 mL/m2 [employer] Work Phone: [phone] LV Mass 2D 164.5 g Abnormal 67 - 162 g [employer] Work Phone: [phone] LV Mass 2D Index 78.7 g/m2 43 - 95 g/m2 [employer] Work Phone: [phone] LV RWT Ratio 0.43 [employer] Phone: LVIDd 4.7 cm 3.9 - 5.3 cm [employer] Work Phone: LVIDd Index 2.25 cm/m2 [employer] Phone: [phone] LVIDs 3.4 cm [employer] Work Phone: [phone] LVIDs Index 1.63 cm/m2 [employer] Phone: LVOT Cardiac Output 1.9 liter/mi nu te [employer] Phone: [phone] LVOT Diameter 1.9 cm [employer] Phone: LVOT Mean Gradient 1 mmHg [employer] Work Phone: [phone] LVOT Peak Gradient 1 mmHg [employer] Work Phone: [phone] LVOT Peak Velocity 0.5 m/s [employer] Phone: LVOT Stroke Volume Index 14.8 mL/m2 [employer] Work Phone: LVOT SV 30.9 ml [employer] Work Phone: LVOT VTI 10.9 cm [employer] Phone: LVOT:AV VTI Index 0.4 [employer] Work Phone: LVPWd 1 cm Abnormal 0.6 - 0.9 cm [facility] Work Phone: [phone] MR VTI 189.2 cm [facility] Work Phone: [phone] MV A Velocity 0.01 m/s [facility] Work Phone: [phone] MV E Velocity 1.15 m/s [facility] [employer] Work Phone: [phone] MV E Wave Deceleration Time 135.4 ms [facility] [employer] Work Phone: [phone] MV E/A 115 [facility] [employer] Work Phone: [phone] MV Regurg Velocity PISA 5.3 m/s [facility] [employer] Work Phone: [phone] RA Area 4C 48.3 mL [facility] Work Phone: [phone] RA Area 4C 46.6 mL [facility] [employer] Work Phone: [phone] RV Basal Dimension 3.6 cm [facility] [employer] Work Phone: [phone] RV Free Wall Peak S' 10 cm/s [facility] Work Phone: [phone] RV Longitudinal Dimension 7.7 cm [facility] [employer] Work Phone: [phone] RV Mid Dimension 2.4 cm [facility] [employer] Work Phone: [phone] RVSP 35 mmHg [facility] [employer] Work Phone: [phone] Sinotubular Junction 2.5 cm [facility] [employer] Work Phone: TAPSE 1.4 cm Abnormal 1.7 cm [facility] [employer] Work Phone: [phone] TR Max Velocity 2.84 m/s [facility] [employer] Work Phone: [phone] TR Peak Gradient 32 mmHg [facility] [employer] Work Phone: [phone] TR Peak Velocity PISA 2.7 m/s [facility] Work Phone: TR VTI 84.2 cm [facility] Work Phone: [phone] [facility] [employer] Work Phone: Heart Transthoracicon Left Ventricle: Left [...] no prior study available for comparison CV CPACS CBC (HEMOGRAM)on 03-14-2025 Erythrocyte distribution width (RBC) [Ratio] 14.8 % Normal 11.5-15.0 [facility] Comment on above: Performed By: #### L [id number] ####Escort Vehicle Driver: BROOKE RINCON ([id number])[facility] ([address] Hematocrit (Bld) [Volume fraction] 34.7 % Low 35.0-47.0 [facility] Comment on above: Performed By: #### L [id number] ####Escort Vehicle Driver: BROOKE RINCON ([id number])[facility] ([facility])[address] [place] [address] Hemoglobin (Bld) [Mass/Vol] 11.0 g/dL Low 11.7-16.0 [facility] Comment on above: Performed By: #### L [id number] ####Escort Vehicle Driver: BROOKE RINCON ([id number])[facility] ([facility])[address] [place] [address] MCH (RBC) [Entitic mass] 29.9 pg Normal 26.0-34.0 [facility] Comment on above: Performed By: #### L [id number] ####Escort Vehicle Driver: BROOKE RINCON ([id number])[facility])[address] [place] [address] MCHC 31.7 % Normal 30.5-36.0 [facility] Comment on above: Performed By: #### L [id number] ####Escort Vehicle Driver: BROOKE RINCON ([id number])[facility] ([facility])[address] [place] [address] MCV (RBC) [Entitic vol] 94.3 fL Normal 77.0-99.0 [facility] Comment on above: Performed By: #### L [id number] ####Escort Vehicle Driver: BROOKE RNICON ([id number])[facility] ([facility])[address] [place] [address] Platelet mean volume (Bld) [Entitic vol] 10.3 fL Normal 9.0-12.7 [facility] Comment on above: Performed By: #### L [id number] ####Escort Vehicle Driver: BROOKE RINCON ([id number])[facility])[address] [place] [address] Platelets (Bld) [#/Vol] 298 10*3/uL Normal 140-440 [facility] Comment on above: Performed By: #### L [id number] ####Escort Vehicle Driver: BROOKE RINCON ([id number])[facility])[address] [place] [address] RBC (Bld) [#/Vol] 3.68 10*6/uL Low 3.80-5.20 [facility] Comment on above: Performed By: #### L [id number] ####Escort Vehicle Driver: BROOKE RINCON ([id number])[facility] ([facility])[address] [place] [address] WBC (Bld) [#/Vol] 7.8 10*3/uL Normal 3.6-10.7 [facility] Comment on above: Performed By: #### L [id number] ####Escort Vehicle Driver: BROOKE RINCON ([id number])[facility] ([facility])[address] [place] [address] CBC panel Auto (Bld)on 03-14 Erythrocyte distribution width (RBC) [Ratio] 14.8 % 11.5 - 15.0 % [facility] Hematocrit (Bld) [Volume fraction] 34.7 % Low 35.0 - 47.0 % [facility] Hemoglobin (Bld) [Mass/Vol] 11 g/dL Low 11.7 - 16.0 g/dL [facility] Interpretation and review of laboratory results Abnormal [facility] MCH (RBC) [Entitic mass] 29.9 pg 26.0 - 34.0 pg [facility] MCHC (RBC) [Mass/Vol] 31.7 % 30.5 - 36.0 % [facility] MCV (RBC) [Entitic vol] 94.3 fL 77.0 - 99.0 fL [facility] Platelet mean volume (Bld) [Entitic vol] 10.3 fL 9.0 - 12.7 fL [facility] Platelets (Bld) [#/Vol] 298 10*3/uL 140 - 440 10*3/uL [facility] RBC (Bld) [#/Vol] 3.68 10*6/uL Low 3.80 - 5.20 10*6/uL [facility] WBC (Bld) [#/Vol] 7.8 10*3/uL 3.6 - 10.7 10*3/uL [facility] COMPLETE URINALYSIS WITH REF MAI TO CULTUREon 03-14-2025 BILIRUBIN, TOTAL PRESENCE IN URINE Negative Normal Negative [facility] Comment on above: Performed By: #### L [id number] ####Escort Vehicle Driver: BROOKE RINCON ([id number])[facility])[address] [place] [address] Clarity (U) Clear Normal Clear [facility] Comment on above: Performed By: #### L [id number] ####Escort Vehicle Driver: BROOKE RINCON ([id number])[facility] ([facility])[address] [place] [address] Color (U) Colorless Normal Lt. Yellow [facility] Comment on above: Performed By: #### L [id number] ####Escort Vehicle Driver: BROOKE RINCON ([id number])[facility])[address] [place] [address] Glucose (U) [Mass/Vol] 50 mg/dL Normal Yenny l (<70) [facility] Comment on above: Performed By: #### L [id number] ####Escort Vehicle Driver: BROOKE RINCON ([id number])[facility] ([facility])[address] [place] [address] HEMOGLOBIN PRESENCE IN URINE Negative Normal Negative [facility] Comment on above: Performed By: #### L [id number] ####Escort Vehicle Driver: BROOKE RINCON ([id number])[facility] ([facility])[address] [place] [address] Ketones Ql (U) Negative Normal Negative [facility] Comment on above: Performed By: #### L [id number] ####Escort Vehicle Driver: BROOKE RINCON ([id number])[facility] ([facility])[address] [place] [address] LEUKOCYTE ESTERASE PRESENCE IN URINE BY TEST STRIP Negative Normal Negative [facility] Comment on above: Performed By: #### L [id number] ####Escort Vehicle Driver: BROOKE RINCON ([id number])[facility] ([facility])[address] [place] [address] NITRITE PRESENCE IN URINE Negative Normal Negative [facility] Comment on above: Performed By: #### L [id number] ####Escort Vehicle Driver: BROOKE RINCON ([id number])[facility])[address] [place] [address] pH (U) 6.0 [pH] Normal 5.0-8.0 [facility] Comment on above: Performed By: #### L [id number] ####Escort Vehicle Driver: BROOKE RINCON ([id number])[facility])[address] [place] [address] Protein (U) [Mass/Vol] Negative Normal Negative [facility] Comment on above: Performed By: #### L [id number] ####Escort Vehicle Driver: BROOKE RINCON ([id number])[address] Specific gravity (U) [Rel density] 1.008 Normal 1.005-1.03 0 [facility] Comment on above: Result Comment: CARLTON Geiger COMMENTS:A specimen with <=10 WBC is not consistent with inflammation. This specimen will not reflex to a urine culture. Performed By: #### L [id number] ####Escort Vehicle Driver: BROOKE RINCON ([id number])[address] UROBILINOGEN (MG/DL) IN URINE Normal Normal Normal (0-1) [facility] Comment on above: Performed By: #### L [id number] ####Escort Vehicle Driver: BROOKE RINCON ([id number])[address] COMPREHENSIVE METABOLIC PANE David 03-14-2025 Albumin [Mass/Vol] 3.3 g/dL Low 3.4-4.8 [facility] Comment on above: Performed By: #### L [id number], [id number], [id number] ####Escort Vehicle Driver: BROOKE RINCON ([id number])[facility])[address] [place] [address] ALP [Catalytic activity/Vol] 49 U/L Normal 40-150 [facility] Comment on above: Performed By: #### L [id number], [id number], [id number] ####Escort Vehicle Driver: BROOKE RINCON ([id number])[facility] ([facility])[address] [place] [address] ALT [Catalytic activity/Vol] 9 U/L Normal <30 [facility] Comment on above: Performed By: #### L [id number], [id number], [id number] ####Escort Vehicle Driver: BROOKE RINCON ([id number])[facility] ([facility])[address] [place] [address] Anion gap [Moles/Vol] 11 mmol/L Normal 3-13 [facility] Comment on above: Performed By: #### L [id number], [id number], [id number] ####Escort Vehicle Driver: BROOKE RINCON ([id number])[facility] ([facility])[address] [place] [address] AST [Catalytic activity/Vol] 18 U/L Normal <34 [facility] Comment on above: Performed By: #### L [id number], [id number], [id number] ####Escort Vehicle Driver: BROOKE RINCON ([id number])[facility] ([facility])[address] [place] [address] Bilirubin [Mass/Vol] 0.3 mg/dL Normal <1.2 [facility] Comment on above: Performed By: #### L [id number], [id number], LAB17 ####Escort Vehicle Driver: BROOKE RINCON ([id number])[facility])[address] [place] [address] Calcium [Mass/Vol] 9.0 mg/dL Normal 8.8-10.0 [facility] Comment on above: Performed By: #### L [id number], [id number], LAB17 ####Escort Vehicle Driver: BROOKE RINCON ([id number])[facility])[address] [place] [address] Chloride [Moles/Vol] 108 mmol/L High 98-107 [facility] Comment on above: Performed By: #### L [id number], [id number], LAB17 ####Escort Vehicle Driver: BROOKE RINCON ([id number])[facility])[address] [place] [address] CO2 [Moles/Vol] 19 mmol/L Low 23-31 [facility] Comment on above: Performed By: #### L [id number], [id number], [id number] ####Escort Vehicle Driver: BROOKE RINCON ([id number])[facility])[address] [place] [address] Creatinine [Mass/Vol] 1.46 mg/dL High 0.57-1.11 [facility] Comment on above: Performed By: #### L [id number], [id number], LAB17 ####Escort Vehicle Driver: BROOKE RINCON ([id number])[facility])[address] [place] [address] GLOMERULAR FILTRATION RATE ML/MIN/1.73 SQ M.PREDICTED 35.1 mL/min/1.73m*2 Low >60.0 [facility] Comment on above: Result Comment: Calc ulation based on the Chronic Kidney Disease Epidemiology Collaboration (CKD-EPI) equation refit without adjustment for race Performed By: #### L [id number], [id number], [id number] ####Escort Vehicle Driver: BROOKE RINCON ([id number])[facility])[address] [place] [address] Glucose [Mass/Vol] 159 mg/dL High 82-115 [facility] Comment on above: Performed By: #### L [id number], [id number], LAB17 ####Escort Vehicle Driver: BROOKE RINCON ([id number])[facility])[address] [place] [address] [place] Potassium [Moles/Vol] 4.4 mmol/L Normal 3.5-5.1 [facility] Comment on above: Result Comment: [facility] potassium values may be up to 0.5 mmol/L lower than serum values. Performed By: #### L [id number], [id number], LAB17 ####Escort Vehicle Driver: BROOKE RINCON ([id number])[facility])[address] [place] [address] [place] Protein [Mass/Vol] 6.8 g/dL Normal 6.4-8.3 [facility] Comment on above: Performed By: #### L [id number], [id number], [id number] ####Escort Vehicle Driver: BROOKE RINCON ([id number])[facility] ([facility])[address] [place] [address] Sodium [Moles/Vol] 138 mmol/L Normal 136-145 [facility] Comment on above: Performed By: #### L [id number], [id number], [id number] ####Escort Vehicle Driver: BROOKE RINCON ([id number])[facility] ([facility])[address] [place] [address] Urea nitrogen [Mass/Vol] 43 mg/dL High 9-23 [facility] Comment on above: Performed By: #### L [id number], [id number], [id number] ####Escort Vehicle Driver: BROOKE RINCON ([id number])[facility] ([facility])[address] [place] [address] Comprehensive metabolic 1998 panelon 03-14-2025 Albumin [Mass/Vol] 3.3 g/dL Low 3.4 - 4.8 g/dL [facility] ALP [Catalytic activity/Vol] 49 U/L 40 - 150 U/L [facility] ALT [Catalytic activity/Vol] 9 U/L NINF - 30 U/L [facility] Anion gap [Moles/Vol] 11 mmol/L 3 - 13 mmol/L [facility] AST [Catalytic activity/Vol] 18 U/L NINF - 34 U/L [facility] Bilirubin [Mass/Vol] 0.3 mg/dL NINF - 1.2 mg/dL [facility] Calcium [Mass/Vol] 9 mg/dL 8.8 - 10. 0 mg/dL [facility] Chloride [Moles/Vol] 108 mmol/L High 98 - 10 7 mmol/L [facility] CO2 [Moles/Vol] 19 mmol/L Low 23 - 31 mmol/L [facility] Creatinine [Mass/Vol] 1.46 mg/dL High 0.57 - 1.11 mg/dL [facility] GFR/1.73 sq M.predicted (S/P/Bld) [Vol rate/Area] 35.1 mL/min Low - PINF [facility] Comment on above: Calculation based on the Chronic Kidney Disease Epidemiology Collaboration (CKD-EPI) equation refit without adjustment for race Glucose [Mass/Vol] 159 mg/dL High 82 - 115 mg/dL [facility] Interpretation and review of laboratory results Abnormal [facility] Potassium [Moles/Vol] 4.4 mmol/L 3.5 - 5.1 mmol/L [facility] Comment on above: Plasma potassium ashley ues may be up to 0.5 mmol/L lower than serum values. Protein [Mass/Vol] 6.8 g/dL 6.4 - 8.3 g/dL [facility] Sodium [Moles/Vol] 138 mmol/L 136 - 145 mmol/L [facility] Urea nitrogen [Mass/Vol] 43 mg/dL High 9 - 23 mg/dL [facility] Laboratory - Chemistry and C hemistry - challengeon 03-14-2025 Glucose [Mass/Vol] 233 mg/dL High 70 - 100 mg/dL [facility] Glucose [Mass/Vol] 161 mg/dL High 70 - 100 mg/dL [facility] Glucose [Mass/Vol] 168 mg/dL High 70 - 100 mg/dL [facility] Glucose [Mass/Vol] 133 mg/dL High 70 - 100 mg/dL [facility] TSH Qn 1.71 m[IU]/L [facility] Magnesium [Mass/Vol] 1.6 mg/dL 1.6 - 2 .6 mg/dL [facility] MAGNESIUMon 03-14-2025 Magnesium [Mass/Vol] 1.6 mg/dL Normal 1.6-2.6 [facility] Comment on above: Result Comment: CARLTON Geiger COMMENTS:Higher values can be expected in females during menses. Performed By: #### L [id number], [id number], [id number] ####Escort Vehicle Driver: BROOKE RINCON ([id number])[facility] ([facility])[address] [place] [address] Magnesium [Mass/Vol]on 03-14 Interpretation and review of laboratory results Normal [facility] Higher values can be expected in females during menses. [facility] No Panel Informationon 03-14 Interpretation and review of laboratory results Abnormal [facility] Performed by: [facility], [address] [place] [address] CLIA ID: [id number] [facility] Interpretation and review of laboratory results Abnormal [facility] Performed by: [facility], [address] [place] [address] CLIA ID: [id number] [facility] Interpretation and review of laboratory results Abnormal [facility] Performed by: [facility], [address] [place] [address] CLIA ID: [id number] [facility] Interpretation and review of laboratory results Abnormal [facility] Performed by: [facility], [address] [place] [address] CLIA ID: [id number] [facility] Progress Noteon 03-14-2025 Progress Note Normal [facility] Progress Note Normal [facility] Progress Note Nutrition rescreen completed. Chart reviewed. Patient to be monitored and followed by the diet industrial service technician. Priscila Jason, DT Normal [facility] THYROID STIMULATING HORMONEo n 03-14-2025 THYROID STIMULATING HORMONE 1.71 uIU/mL Normal 0.35-4.94 [facility] Comment on above: Performed By: #### L AB103, [id number], [id number] ####Escort Vehicle Driver: BROOKE RINCON ([id number])[facility] ([facility])[address] [place] [address] [place] TSH Qnon 03-14-2025 Interpretation and review of laboratory results Normal [facility] Urinalysis complete panel (U )on 03-14-2025 Bilirubin Ql (U) Negative Negative mg/dL [facility] Clarity (U) Clear Clear [facility] Color (U) Colorless Lt. Yellow [facility] Glucose Ql (U) 50 mg/dL Normal (<70) [facility] Hemoglobin Ql (U) Negative Negative mg/dL [facility] Interpretation and review of laboratory results Normal [facility] Ketones (U) [Mass/Vol] Negative Negat eddie mg/dL [facility] Leukocyte esterase Test strip Ql (U) Negative Negative Baljit/uL [facility] Nitrite Ql (U) Negative Negative [facility] pH (U) 6.0 [pH] 5.0 - 8.0 pH [facility] Protein (U) [Mass/Vol] Negative Negat eddie mg/dL [facility] Specific gravity (U) [Rel density] 1.008 1.005 - 1.030 [facility] Urobilinogen (U) [Mass/Vol] Normal Normal (0-1) mg/dL [facility] A specimen with <=10 WBC is not consistent with inflammation. This specimen will not reflex to a urine culture. [facility] CBC (HEMOGRAM)on 03-13-2025 Erythrocyte distribution width (RBC) [Ratio] 14.8 % Normal 11.5-15.0 [facility] Comment on above: Performed By: #### L [id number] ####Escort Vehicle Driver: BROOKE RINCON ([id number])[facility])[address] [place] [address] Hematocrit (Bld) [Volume fraction] 34.9 % Low 35.0-47.0 [facility] Comment on above: Performed By: #### L [id number] ####Escort Vehicle Driver: BROOKE RINCON ([id number])[facility])[address] [place] [address] Hemoglobin (Bld) [Mass/Vol] 11.1 g/dL Low 11.7-16.0 [facility] Comment on above: Performed By: #### L [id number] ####Escort Vehicle Driver: BROOKE RINCON ([id number])[facility])[address] [place] [address] MCH (RBC) [Entitic mass] 29.8 pg Normal 26.0-34.0 [facility] Comment on above: Performed By: #### L [id number] ####Escort Vehicle Driver: BROOKE RINCON ([id number])[address] MCHC 31.8 % Normal 30.5-36.0 [facility] Comment on above: Performed By: #### L [id number] ####Escort Vehicle Driver: BROOKE RINCON ([id number])[facility])[address] [place] [address] MCV (RBC) [Entitic vol] 93.8 fL Normal 77.0-99.0 [facility] Comment on above: Performed By: #### L [id number] ####Escort Vehicle Driver: BROOKE RINCON ([id number])[facility])[address] [place] [address] Platelet mean volume (Bld) [Entitic vol] 10.3 fL Normal 9.0-12.7 [facility] Comment on above: Performed By: #### L [id number] ####Escort Vehicle Driver: BROOKE RINCON ([id number])[facility] ([facility])[address] [place] [address] Platelets (Bld) [#/Vol] 368 10*3/uL Normal 140-440 [facility] Comment on above: Performed By: #### L [id number] ####Escort Vehicle Driver: BROOKE RINCON ([id number])[facility])[address] [place] [address] RBC (Bld) [#/Vol] 3.72 10*6/uL Low 3.80-5.20 [facility] Comment on above: Performed By: #### L [id number] ####Escort Vehicle Driver: BROOKE RINCON ([id number])[facility] ([facility])[address] [place] [address] WBC (Bld) [#/Vol] 10.5 10*3/uL Normal 3.6-10.7 [facility] Comment on above: Performed By: #### L [id number] ####Escort Vehicle Driver: BROOKE RINCON ([id number])[facility])[address] [place] [address] CBC panel Auto (Bld)on 03-13 Erythrocyte distribution width (RBC) [Ratio] 14.8 % 11.5 - 15.0 % [facility] Hematocrit (Bld) [Volume fraction] 34.9 % Low 35.0 - 47.0 % [facility] Hemoglobin (Bld) [Mass/Vol] 11.1 g/dL Low 11.7 - 16.0 g/dL [facility] Interpretation and review of laboratory results Abnormal [facility] MCH (RBC) [Entitic mass] 29.8 pg 26.0 - 34.0 pg [facility] MCHC (RBC) [Mass/Vol] 31.8 % 30.5 - 36.0 % [facility] MCV (RBC) [Entitic vol] 93.8 fL 77.0 - 99.0 fL [facility] Platelet mean volume (Bld) [Entitic vol] 10.3 fL 9.0 - 12.7 fL [facility] Platelets (Bld) [#/Vol] 368 10*3/uL 140 - 440 10*3/uL [facility] RBC (Bld) [#/Vol] 3.72 10*6/uL Low 3.80 - 5.20 10*6/uL [facility] WBC (Bld) [#/Vol] 10.5 10*3/uL 3.6 - 10.7 10*3/uL [facility] COMPREHENSIVE METABOLIC PANE David 03-13-2025 Albumin [Mass/Vol] 3.4 g/dL Normal 3.4-4.8 [facility] Comment on above: Performed By: #### L AB17, [id number] ####Escort Vehicle Driver: BROOKE RINCON ([id number])[facility])[address] [place] [address] ALP [Catalytic activity/Vol] 46 U/L Normal 40-150 [facility] Comment on above: Performed By: #### L AB17, [id number] ####Escort Vehicle Driver: BROOKE RINCON ([id number])[facility] ([facility])[address] [place] [address] ALT [Catalytic activity/Vol] 15 U/L Normal <30 [facility] Comment on above: Performed By: #### L AB17, [id number] ####Escort Vehicle Driver: BROOKE RINCON ([id number])[facility] ([facility])[address] [place] [address] Anion gap [Moles/Vol] 9 mmol/L Normal 3-13 [facility] Comment on above: Performed By: #### L AB17, [id number] ####Escort Vehicle Driver: BROOKE RINCON ([id number])[facility] ([facility])[address] [place] [address] AST [Catalytic activity/Vol] 18 U/L Normal <34 [facility] Comment on above: Performed By: #### L AB17, [id number] ####Escort Vehicle Driver: BROOKE RINCON ([id number])[facility] ([facility])[address] [place] [address] Bilirubin [Mass/Vol] 0.3 mg/dL Normal <1.2 [facility] Comment on above: Performed By: #### L AB17, [id number] ####Escort Vehicle Driver: BROOKE RINCON ([id number])[facility] ([facility])[address] [place] [address] Calcium [Mass/Vol] 9.4 mg/dL Normal 8.8-10.0 [facility] Comment on above: Performed By: #### L AB17, [id number] ####Escort Vehicle Driver: BROOKE RINCON ([id number])[facility] ([facility])[address] [place] [address] Chloride [Moles/Vol] 113 mmol/L High 98-107 [facility] Comment on above: Performed By: #### L AB17, [id number] ####Escort Vehicle Driver: BROOKE RINCON ([id number])[facility] ([facility])[address] [place] [address] CO2 [Moles/Vol] 19 mmol/L Low 23-31 [facility] Comment on above: Performed By: #### L AB17, [id number] ####Escort Vehicle Driver: BROOKE RINCON ([id number])[facility] ([facility])[address] [place] [address] [place] Creatinine [Mass/Vol] 1.09 mg/dL Normal 0.57-1.11 [facility] Comment on above: Performed By: #### L AB17, [id number] ####Escort Vehicle Driver: BROOKE RINCON ([id number])[facility] ([facility])[address] [place] [address] [place] GLOMERULAR FILTRATION RATE ML/MIN/1.73 SQ M.PREDICTED 49.9 mL/min/1.73m*2 Low >60.0 [facility] Comment on above: Result Comment: Calc ulation based on the Chronic Kidney Disease Epidemiology Collaboration (CKD-EPI) equation refit without adjustment for race Performed By: #### L AB17, [id number] ####Escort Vehicle Driver: BROOKE RINCON ([id number])[facility])[address] [place] [address] Glucose [Mass/Vol] 45 mg/dL Critically low 82-115 [facility] Comment on above: Performed By: #### L AB17, [id number] ####Escort Vehicle Driver: BROOKE RINCON ([id number])[facility])[address] [place] [address] Potassium [Moles/Vol] 3.9 mmol/L Normal 3.5-5.1 [facility] Comment on above: Result Comment: [facility] potassium values may be up to 0.5 mmol/L lower than serum values. Performed By: #### L AB17, [id number] ####Escort Vehicle Driver: BROOKE RINCON ([id number])[facility] ([facility])[address] [place] [address] Protein [Mass/Vol] 6.8 g/dL Normal 6.4-8.3 [facility] Comment on above: Performed By: #### L AB17, [id number] ####Escort Vehicle Driver: BROOKE RINCON ([id number])[facility])[address] [place] [address] Sodium [Moles/Vol] 141 mmol/L Normal 136-145 [facility] Comment on above: Performed By: #### L AB17, [id number] ####Escort Vehicle Driver: BROOKE RINCON ([id number])[facility])[address] [place] [address] Urea nitrogen [Mass/Vol] 44 mg/dL High 9-23 [facility] Comment on above: Performed By: #### L AB17, [id number] ####Escort Vehicle Driver: BROOKE RINCON ([id number])[facility])[address] [place] [address] Comprehensive metabolic 1998 panelOrdered By: Theresa Bobby on 03-13-2025 Albumin [Mass/Vol] 3.4 g/dL 3.4 - 4.8 g/dL [facility] ALP [Catalytic activity/Vol] 46 U/L 40 - 150 U/L [facility] ALT [Catalytic activity/Vol] 15 U/L NINF - 30 U/L [facility] Anion gap [Moles/Vol] 9 mmol/L 3 - 13 mmol/L [facility] AST [Catalytic activity/Vol] 18 U/L NINF - 34 U/L [facility] Bilirubin [Mass/Vol] 0.3 mg/dL NINF - 1.2 mg/dL [facility] Calcium [Mass/Vol] 9.4 mg/dL 8.8 - 10. 0 mg/dL [facility] Chloride [Moles/Vol] 113 mmol/L High 98 - 10 7 mmol/L [facility] CO2 [Moles/Vol] 19 mmol/L Low 23 - 31 mmol/L [facility] Creatinine [Mass/Vol] 1.09 mg/dL 0.57 - 1.11 mg/dL [facility] GFR/1.73 sq M.predicted (S/P/Bld) [Vol rate/Area] 49.9 mL/min Low - PINF [facility] Comment on above: Calculation based on the Chronic Kidney Disease Epidemiology Collaboration (CKD-EPI) equation refit without adjustment for race Glucose [Mass/Vol] 45 mg/dL Critically low 82 - 11 5 mg/dL [facility] Interpretation and review of laboratory results Abnormal [facility] Potassium [Moles/Vol] 3.9 mmol/L 3.5 - 5.1 mmol/L [facility] Comment on above: Plasma potassium ashley ues may be up to 0.5 mmol/L lower than serum values. Protein [Mass/Vol] 6.8 g/dL 6.4 - 8.3 g/dL [facility] Sodium [Moles/Vol] 141 mmol/L 136 - 145 mmol/L [facility] Urea nitrogen [Mass/Vol] 44 mg/dL High 9 - 23 mg/dL [facility] Consulton 03-13-2025 Consult Normal [facility] ECG 12-LEADon 03-13-2025 ECG 12-LEAD IMPRESSION: EKG shows AFib with RVR, LAD, cannot calculate NV interval. Normal QRS and QTC intervals. No STEMI, no LVH. Previous EKG AFib with RVR and frequent PVCs Electronically Signed On 03-13-2025 18:03:17 EDT by Norberto Grande Normal [facility] ED Nursing Noteon 03-13-2025 ED Nursing Note BGT rechecked after patient ate breakfast. BGT 130. Normal [facility] ED Nursing Note Breakfast tray deliv ered to patient Normal [facility] ED Nursing Note Morning blood work r esulted with a BS 45. Checked with glucometer and it was 58. Pt provided crackers, apple juice, and a breakfast tray was ordered. No acute signs of distress. Normal [facility] Laboratory - Chemistry and C hemistry - challengeon 03-13-2025 Glucose [Mass/Vol] 182 mg/dL High 70 - 100 mg/dL [facility] Glucose [Mass/Vol] 137 mg/dL High 70 - 100 mg/dL [facility] Glucose [Mass/Vol] 130 mg/dL High 70 - 100 mg/dL [facility] Glucose [Mass/Vol] 58 mg/dL Low 70 - 100 mg/dL [facility] Magnesium [Mass/Vol] 1.7 mg/dL 1.6 - 2 .6 mg/dL [facility] Glucose [Mass/Vol] 184 mg/dL High 70 - 100 mg/dL [facility] MAGNESIUMon 03-13-2025 Magnesium [Mass/Vol] 1.7 mg/dL Normal 1.6-2.6 [facility] Comment on above: Result Comment: CARLTON Geiger COMMENTS:Higher values can be expected in females during menses. Performed By: #### L AB17, [id number] ####Escort Vehicle Driver: BROOKE RINCON ([id number])[facility] ([facility])[address] [place] [address] Magnesium [Mass/Vol]on 03-13 Interpretation and review of laboratory results Normal [facility] Higher values can be expected in females during menses. [facility] No Panel Informationon 03-13 Interpretation and review of laboratory results Abnormal [facility] Performed by: [facility], [address] [place] [address] CLIA ID: [id number] [facility] EKG shows AFib with RVR, LAD, cannot calculate NV interval. Normal QRS and QTC intervals. No STEMI, no LVH. Previous EKG AFib with RVR and frequent PVCs Electronically Signed On 03-13-2025 18:03:17 EDT by Norberto Grande CV Norberto Massey MD - 03/13/2025 IMPRESSION: EKG shows AFib with RVR, LAD, cannot calculate NV interval. Normal QRS and QTC intervals. No STEMI, no LVH. Previous EKG AFib with RVR and frequent PVCs Electronically Signed On 03-13-2025 18:03:17 EDT by Norberto Grande [facility] [employer] Interpretation and review of laboratory results Abnormal [facility] Performed by: [facility], [address] [place] [address], [facility] [address] CLIA ID: [id number] [facility] Interpretation and review of laboratory results Abnormal [facility] Performed by: [facility], [address] [place] [address] CLIA ID: [id number] [facility] Interpretation and review of laboratory results Abnormal [facility] Performed by: [facility], [address] [place] [address], [place] [address] CLIA ID: [id number] [facility] Interpretation and review of laboratory results Abnormal [facility] Performed by: [facility], [address] [place] [address], [facility] [address] CLIA ID: [id number] [facility] No Panel InformationOrdered By: Norberto Grande on 03-13-2025 P Eastman 0 degrees [employer] Work Phone: NV Interval 0 ms [employer] Work Phone: QRS [place]man 2 degrees [employer] Work Phone: QRSD Interval 85 ms [employer] Work Phone: QT Interval 290 ms [employer] Work Phone: QTC Interval 442 ms [employer] Work Phone: T Wave [place]man 33 degrees [employer] Work Phone: [employer] Work Phone: Progress Noteon 08-02-2025 Progress Note Normal [facility] Vital signsOrdered By: Saba negron Grande on 03-13-2025 Heart rate 143 /min bpm [facility] [employer] Work Phone: BASIC METABOLIC PANELon Anion gap [Moles/Vol] 12 mmol/L Normal 3-13 [facility] Comment on above: Performed By: #### Jaz BISHOP, [id number] ####Escort Vehicle Driver: BROOKE RINCON ([id number])[facility] ([facility])[address] [place] [address] Calcium [Mass/Vol] 9.8 mg/dL Normal 8.8-10.0 [facility] Comment on above: Performed By: #### Jaz BISHOP, [id number] ####Escort Vehicle Driver: BROOKE RINCON ([id number])[facility] ([facility])[address] [place] [address] Chloride [Moles/Vol] 106 mmol/L Normal 98-107 [facility] Comment on above: Performed By: #### Jaz BISHOP, [id number] ####Escort Vehicle Driver: BROOKE RINCON ([id number])[facility] ([facility])[address] [place] [address] CO2 [Moles/Vol] 18 mmol/L Low 23-31 [facility] Comment on above: Performed By: #### Jaz BISHOP, [id number] ####Escort Vehicle Driver: BROOKE RINCON ([id number])[facility])[address] [place] [address] Creatinine [Mass/Vol] 1.46 mg/dL High 0.57-1.11 [facility] Comment on above: Performed By: #### Jaz BISHOP, [id number] ####Escort Vehicle Driver: BROOKE RINCON ([id number])[facility])[address] [place] [address] GLOMERULAR FILTRATION RATE ML/MIN/1.73 SQ M.PREDICTED 35.1 mL/min/1.73m*2 Low >60.0 [facility] Comment on above: Result Comment: Calc ulation based on the Chronic Kidney Disease Epidemiology Collaboration (CKD-EPI) equation refit without adjustment for race Performed By: #### Jaz BISHOP, [id number] ####Escort Vehicle Driver: BROOKE RINCON ([id number])[facility])[address] [place] [address] Glucose [Mass/Vol] 167 mg/dL High 82-115 [facility] Comment on above: Performed By: #### Jaz BISHOP, [id number] ####Escort Vehicle Driver: BROOKE RINCON ([id number])[facility])[address] [place] [address] Potassium [Moles/Vol] 5.4 mmol/L High 3.5-5.1 [facility] Comment on above: Result Comment: TCPo tential interference from hemolysis Performed By: #### Jaz BISHOP, [id number] ####Escort Vehicle Driver: BROOKE RINCON ([id number])[facility] ([facility])[address] [place] [address] Sodium [Moles/Vol] 136 mmol/L Normal 136-145 [facility] Comment on above: Performed By: #### Jaz BISHOP, [id number] ####Escort Vehicle Driver: BROOKE RINCON ([id number])[facility])[address] [place] [address] Urea nitrogen [Mass/Vol] 45 mg/dL High 9-23 [facility] Comment on above: Performed By: #### Jaz BISHOP, [id number] ####Escort Vehicle Driver: BROOKE RINCON ([id number])[facility])[address] [place] [address] Basic metabolic 1998 panelon 03-12-2025 Anion gap [Moles/Vol] 12 mmol/L 3 - 13 mmol/L [facility] Calcium [Mass/Vol] 9.8 mg/dL 8.8 - 10. 0 mg/dL [facility] Chloride [Moles/Vol] 106 mmol/L 98 - 10 7 mmol/L [facility] CO2 [Moles/Vol] 18 mmol/L Low 23 - 31 mmol/L [facility] Creatinine [Mass/Vol] 1.46 mg/dL High 0.57 - 1.11 mg/dL [facility] GFR/1.73 sq M.predicted (S/P/Bld) [Vol rate/Area] 35.1 mL/min Low - PINF [facility] Comment on above: Calculation based on the Chronic Kidney Disease Epidemiology Collaboration (CKD-EPI) equation refit without adjustment for race Glucose [Mass/Vol] 167 mg/dL High 82 - 115 mg/dL [facility] Interpretation and review of laboratory results Abnormal [facility] Potassium [Moles/Vol] 5.4 mmol/L High 3.5 - 5.1 mmol/L [facility] Comment on above: TC Potential interference from hemolysis Sodium [Moles/Vol] 136 mmol/L 136 - 145 mmol/L [facility] Urea nitrogen [Mass/Vol] 45 mg/dL High 9 - 23 mg/dL [facility] CBC W Auto Differential pane l (Bld)on 03-12-2025 Basophils (Bld) [#/Vol] 0.1 10*3/uL 0.0 - 0.2 10*3/uL [facility] Basophils/100 WBC (Bld) 0.5 % 0.0 - 2.0 % [facility] Eosinophils (Bld) [#/Vol] 0.2 10*3/uL 0.0 - 0.5 10*3/uL [facility] Eosinophils/100 WBC (Bld) 1.9 % 0.0 - 6.0 % [facility] Erythrocyte distribution width (RBC) [Ratio] 14.8 % 11.5 - 15.0 % [facility] Hematocrit (Bld) [Volume fraction] 39.8 % 35.0 - 47.0 % [facility] Hemoglobin (Bld) [Mass/Vol] 12.9 g/dL 11.7 - 16.0 g/dL [facility] Immature granulocytes (Bld) [#/Vol] 0.1 10*3/uL High NINF - 0.1 10*3/uL [facility] Immature granulocytes/100 WBC (Bld) 0.6 % 0.0 - 2.0 % [facility] Interpretation and review of laboratory results Abnormal [facility] Lymphocytes (Bld) [#/Vol] 1.7 10*3/uL 1.0 - 4.3 10*3/uL [facility] Lymphocytes/100 WBC (Bld) 16 % 15.0 - 45.0 % [facility] MCH (RBC) [Entitic mass] 30.1 pg 26.0 - 34.0 pg [facility] MCHC (RBC) [Mass/Vol] 32.4 % 30.5 - 36.0 % [facility] MCV (RBC) [Entitic vol] 93 fL 77.0 - 99.0 fL [facility] Monocytes (Bld) [#/Vol] 0.6 10*3/uL 0.0 - 0.9 10*3/uL [facility] Monocytes/100 WBC (Bld) 5.9 % 5.0 - 13.0 % [facility] Neutrophils (Bld) [#/Vol] 7.9 10*3/uL High 1.8 - 7.5 10*3/uL [facility] Neutrophils/100 WBC (Bld) 75.1 % 38.0 - 82.0 % [facility] Nucleated RBC/100 WBC (Bld) [Ratio] 0 % [facility] Platelet mean volume (Bld) [Entitic vol] 10.3 fL 9.0 - 12.7 fL [facility] Platelets (Bld) [#/Vol] 389 10*3/uL 140 - 440 10*3/uL [facility] RBC (Bld) [#/Vol] 4.28 10*6/uL 3.80 - 5.20 10*6/uL [facility] WBC (Bld) [#/Vol] 10.6 10*3/uL 3.6 - 10.7 10*3/uL [facility] CBC WITH AUTO DIFFERENTIALon 03-12-2025 Basophils (Bld) [#/Vol] 0.1 10*3/uL Normal 0.0-0.2 [facility] Comment on above: Performed By: #### L [id number] ####Escort Vehicle Driver: BROOKE RINCON ([id number])[address] Basophils/100 WBC (Bld) 0.5 % Normal 0.0-2.0 [facility] Comment on above: Performed By: #### L [id number] ####Escort Vehicle Driver: BROOKE RINCON ([phone])[facility])[address] [place] [address] Eosinophils (Bld) [#/Vol] 0.2 10*3/uL Normal 0.0-0.5 [facility] Comment on above: Performed By: #### L [id number] ####Escort Vehicle Driver: BROOKE RINCON ([id number])[facility])[address] [place] [address] Eosinophils/100 WBC (Bld) 1.9 % Normal 0.0-6.0 [facility] Comment on above: Performed By: #### L [id number] ####Escort Vehicle Driver: BROOKE RINCON ([id number])[address] Erythrocyte distribution width (RBC) [Ratio] 14.8 % Normal 11.5-15.0 [facility] Comment on above: Performed By: #### L [id number] ####Escort Vehicle Driver: BROOKE RINCON ([id number])[address] Hematocrit (Bld) [Volume fraction] 39.8 % Normal 35.0-47.0 [facility] Comment on above: Performed By: #### L [id number] ####Escort Vehicle Driver: BROOKE RINCON ([id number])[address] Hemoglobin (Bld) [Mass/Vol] 12.9 g/dL Normal 11.7-16.0 [facility] Comment on above: Performed By: #### L [id number] ####Escort Vehicle Driver: BROOKE RINCON ([id number])[address] IMMATURE GRANS % 0.6 % Normal 0.0-2.0 [facility] Comment on above: Performed By: #### L [id number] ####Escort Vehicle Driver: BROOKE RINCON ([id number])[address] IMMATURE GRANS ABSOLUTE 0.1 10*3/uL High <0.1 [facility] Comment on above: Performed By: #### L [id number] ####Escort Vehicle Driver: BROOKE RINCON ([phone])[facility])[address] [place] [address] Lymphocytes (Bld) [#/Vol] 1.7 10*3/uL Normal 1.0-4.3 [facility] Comment on above: Performed By: #### L [id number] ####Escort Vehicle Driver: BROOKE RINCON ([id number])[facility])[address] [place] [address] Lymphocytes/100 WBC (Bld) 16.0 % Normal 15.0-45.0 [facility] Comment on above: Performed By: #### L [id number] ####Escort Vehicle Driver: BROOKE RINCON ([id number])[facility])[address] [place] [address] MCH (RBC) [Entitic mass] 30.1 pg Normal 26.0-34.0 [facility] Comment on above: Performed By: #### L [id number] ####Escort Vehicle Driver: BROOKE RINCON ([id number])[facility])[address] [place] [address] MCHC 32.4 % Normal 30.5-36.0 [facility] Comment on above: Performed By: #### L [id number] ####Escort Vehicle Driver: BROOKE RINCON ([id number])[facility])[address] [place] [address] MCV (RBC) [Entitic vol] 93.0 fL Normal 77.0-99.0 [facility] Comment on above: Performed By: #### L [id number] ####Escort Vehicle Driver: BROOKE RINCON ([id number])[facility])[address] [place] [address] Monocytes (Bld) [#/Vol] 0.6 10*3/uL Normal 0.0-0.9 [facility] Comment on above: Performed By: #### L [id number] ####Escort Vehicle Driver: BROOKE RINCON ([id number])[facility])[address] [place] [address] Monocytes/100 WBC (Bld) 5.9 % Normal 5.0-13.0 [facility] Comment on above: Performed By: #### L [id number] ####Escort Vehicle Driver: BROOKE RINCON ([id number])[facility])[address] [place] [address] NEUTROPHILS ABSOLUTE 7.9 10*3/uL High 1.8-7.5 [facility] Comment on above: Performed By: #### L [id number] ####Escort Vehicle Driver: BROOKE RINCON ([id number])[facility])[address] [place] [address] Neutrophils/100 WBC (Bld) 75.1 % Normal 38.0-82.0 [facility] Comment on above: Performed By: #### L [id number] ####Escort Vehicle Driver: BROOKE RINCON ([id number])[facility])[address] [place] [address] NRBC 0.0 /100 WBCs Normal 0.0-2.0 [facility] Comment on above: Performed By: #### L [id number] ####Escort Vehicle Driver: BROOKE RINCON ([id number])[facility])[address] [place] [address] Platelet mean volume (Bld) [Entitic vol] 10.3 fL Normal 9.0-12.7 [facility] Comment on above: Performed By: #### L [id number] ####Escort Vehicle Driver: BROOKE RINCON ([id number])[facility])[address] [place] [address] Platelets (Bld) [#/Vol] 389 10*3/uL Normal 140-440 [facility] Comment on above: Performed By: #### L [id number] ####Escort Vehicle Driver: BROOKE RINCON ([id number])[facility] [place] [address] RBC (Bld) [#/Vol] 4.28 10*6/uL Normal 3.80-5.20 [facility] Comment on above: Performed By: #### L [id number] ####Escort Vehicle Driver: BROOKE RINCON ([id number])[facility])[address] [place] [address] WBC (Bld) [#/Vol] 10.6 10*3/uL Normal 3.6-10.7 [facility] Comment on above: Performed By: #### L [id number] ####Escort Vehicle Driver: BROOKE RINCON ([id number])[facility])[address] [place] [address] ED Nursing Noteon 03-12-2025 ED Nursing Note This RN notified jarvis t pt needs US line. Normal [facility] ED Provider Noteon ED Provider Note Normal [facility] HIGH SENSITIVITY TROPONIN, S ERIAL BASELINEon 03-12-2025 TROPONIN HS SERIAL BASELINE 4 ng/L Normal <=14 [facility] Comment on above: Result Comment: In i ndividuals presenting with symptoms > 2h, a baseline troponin <= 5 ng/L suggests acutecardiac injury is unlikely and further serial testing is generally not indicated. Performed By: #### L [id number], [id number] ####Escort Vehicle Driver: BROOKE RINCON ([id number])[facility])[address] [place] [address] HIGH SENSITIVITY TROPONIN, S ERIAL, SECOND TESTon 03-12-2025 2H TROPONIN HS (SERIAL 2ND TROPONIN) 6 ng/L Normal <=14 [facility] Comment on above: Result Comment: Risi ng or falling troponin delta below 2 ng/L as compared to baseline value suggests thatacute cardiac injury is unlikely. Performed By: #### L [id number] ####Escort Vehicle Driver: BROOKE RINCON ([id number])[facility] ([facility])[address] [place] [address] HIGH SENSITIVITY TROPONIN, S ERIAL, THIRD TESTon 03-12-2025 4H TROPONIN HS (SERIAL 3RD TROPONIN) 6 ng/L Normal <=14 [facility] Comment on above: Result Comment: 4h t roponin (3rd troponin) samples collected between 1h 40 min and 2h and 20 min of the 2h troponin collection time can be utilized to interpret delta troponins as per [facility] algorithms. Samples collected outside this timeframe need to be interpreted clinically.Rising or falling troponin delta below 2 ng/L as compared to 2h troponin value suggeststhat acute cardiac injury is unlikely. Performed By: #### L [id number] ####Escort Vehicle Driver: BROOKE RINCON ([id number])[facility] ([facility])[address] [place] [address] No Panel Informationon 03-12 4h Troponin HS (Serial 3rd Troponin) 6 ng/L NINF - 14 ng/L [facility] Comment on above: 4h troponin (3rd tro ponin) samples collected between 1h 40 min and 2h and 20 min of the 2h troponin collection time can be utilized to interpret delta troponins as per [facility] algorithms. Samples collected outside this timeframe need to be interpreted clinically. Rising or falling troponin delta below 2 ng/L as compared to 2h troponin value suggests that acute cardiac injury is unlikely. Interpretation and review of laboratory results Normal [facility] 2h Troponin HS (Serial 2nd Troponin) 6 ng/L NINF - 14 ng/L [facility] Comment on above: Rising or falling tr oponin delta below 2 ng/L as compared to baseline value suggests that acute cardiac injury is unlikely. Interpretation and review of laboratory results Normal [facility] Interpretation and review of laboratory results Normal [facility] Troponin HS Serial Baseline 4 ng/L NINF - 14 ng/L [facility] Comment on above: In individuals prese nting with symptoms > 2h, a baseline troponin <= 5 ng/L suggests acute cardiac injury is unlikely and further serial testing is generally not indicated. [facility] XR Chest Single viewon 03-12 No acute cardiopulmonary process. Report Dictated on Electronically Signed By: Celso Palacios MD Electronically Signed Date/Time: 03/12/2025 4:02 PM EDT [facility] Patient Name: HANNA NELSON : [...] changes of the thoracic spine are noted. [facility] Celso Palacios MD - 03/12/2025 Patient Name: [...] Electronically Signed Date/Time: 03/12/2025 4:02 PM EDT [facility] Radiology Study observation (narrative) [facility] XR Chest Single viewOrdered By: Celso Palacios on 03-12-2025 [facility] [employer] Work Phone: [phone] 03-09-2025 37 Normal [facility] No Panel Informationon 03-09 Jennifer Waldrop DPM [...] provider verified the correct patient, procedure, equipment, manager client support, and site/side marked as required. Debridement Details [...] Response to treatment: procedure was tolerated well [facility] Progress Noteon 03-09-2025 Progress Note Normal [facility] 37on 03-02-[address] [facility] No Panel Informationon 03-02 Jennifer Waldrop DPM 10:44 AM Debridement Wound/Incision 09/18/24 Diabetic Ulcer Foot Right Performed by: Jennifer Waldrop DPM Authorized by: eJnnifer Waldrop DPM Consent Consent obtained? verbal Consent given by: patient Risks discussed? procedural risks discussed Time out called at 03/02/2025 10:43 AM Immediately prior to the procedure a time out was called and the performing provider verified the correct patient, procedure, equipment, manager client support, and site/side marked as required. Debridement Details [...] Response to treatment: procedure was tolerated well [facility] Progress Noteon 03-02-[address] [facility] 29on 02-23-2025 29 Encounter addended b y: Liss Acevedo RN on: 02/23/2025 11:59 AM Actions taken: Order list changed, Diagnosis association updated [facility] 37on 02-23-[address] [facility] No Panel Informationon 02-23 Jennifer Waldrop DPM 11:02 AM Debridement Wound/Incision 09/18/24 Diabetic Ulcer Foot Right Performed by: Jennifer Waldrop DPM Authorized by: Jennifer Waldrop DPM Consent Consent obtained? verbal Consent given by: patient Risks discussed? procedural risks discussed Time out called at 02/23/2025 11:00 AM Immediately prior to the procedure a time out was called and the performing provider verified the correct patient, procedure, equipment, manager client support, and site/side marked as required. Debridement Details [...] Response to treatment: procedure was tolerated well [facility] Progress Noteon 02-23-[address] [facility] Basic Metabolic Profile (BMP )on 02-08-2025 BUN/CRE 36.7 RATIO High 10-20 [facility] Comment on above: Order Comment: 304.2 Performed By: #### L 100.0500, L500.2500 #### [facility] [address] [place], [address] Calcium [Mass/Vol] 9.6 mg/dL Normal 7.6-11.0 [facility] Comment on above: Order Comment: 304.2 Performed By: #### L 100.0500, L500.2500 #### [facility] [address] [place], [address] Chloride [Moles/Vol] 104 mmol/L Normal 98-108 [facility] Comment on above: Order Comment: 304.2 Performed By: #### L 100.0500, L500.2500 #### [facility] [address] [place], [address] CO2 [Moles/Vol] 21.5 mmol/L Normal 21.0-32.0 [facility] Comment on above: Order Comment: 304.2 Performed By: #### L 100.0500, L500.2500 #### [facility] [address] [place], [address] Creatinine [Mass/Vol] 1.06 mg/dL Normal 0.70-1.20 [facility] Comment on above: Order Comment: 304.2 Performed By: #### L 100.0500, L500.2500 #### [facility] [address] [place], [address] GAP 15 Normal 5-15 [facility] Comment on above: Order Comment: 304.2 Performed By: #### L 100.0500, L500.2500 #### [facility] [address] [place], [address] GFR/1.73 sq M.predicted among non-blacks MDRD (S/P/Bld) [Vol rate/Area] 51 mL/min/{1.73_m2} Low >60 [facility] Comment on above: Order Comment: 304.2 Result Comment: mL/m in/1.73m2 CKD-EPI Creatinine Equation (2020) Performed By: #### L 100.0500, L500.2500 #### [facility] [address] [place], [address] Glucose [Mass/Vol] 100 mg/dL High 70-99 [facility] Comment on above: Order Comment: 304.2 Performed By: #### L 100.0500, L500.2500 #### [facility] [address] [place], [address] Potassium [Moles/Vol] 4.1 mmol/L Normal 3.3-5.1 [facility] Comment on above: Order Comment: 304.2 Performed By: #### L 100.0500, L500.2500 #### [facility] [address] [place], [address] Sodium [Moles/Vol] 141 mmol/L Normal 133-145 [facility] Comment on above: Order Comment: 304.2 Performed By: #### L 100.0500, L500.2500 #### [facility] [address] [place], [address] Urea nitrogen [Mass/Vol] 39 mg/dL High 4-19 [facility] Comment on above: Order Comment: 304.2 Performed By: #### L 100.0500, L500.2500 #### [facility] [address] [place], [address] CBC-Complete Blood Cnt No Di ffon 02-08-2025 Erythrocyte distribution width (RBC) [Ratio] 14.0 % Normal 11.6-14.6 [facility] Comment on above: Order Comment: 304.2 Performed By: #### L 100.0500, L500.2500 #### [facility] [address] [place], [address] Hematocrit (Bld) [Volume fraction] 36.5 % Low 37-47 [facility] Comment on above: Order Comment: 304.2 Performed By: #### L 100.0500, L500.2500 #### [facility] [address] [place], [address] Hemoglobin (Bld) [Mass/Vol] 11.3 g/dL Low 12.0-15.0 [facility] Comment on above: Order Comment: 304.2 Performed By: #### L 100.0500, L500.2500 #### [facility] [address] [place], [address] MCH (RBC) [Entitic mass] 29.6 pg Normal 27.0-32.0 [facility] Comment on above: Order Comment: 304.2 Performed By: #### L 100.0500, L500.2500 #### [facility] [address] [place], [address] MCHC (RBC) [Mass/Vol] 31.0 g/dL Low 32-36 [facility] Comment on above: Order Comment: 304.2 Performed By: #### L 100.0500, L500.2500 #### [facility] [address] [place], [address] MCV (RBC) [Entitic vol] 95.5 fL Normal 81-99 [facility] Comment on above: Order Comment: 304.2 Performed By: #### L 100.0500, L500.2500 #### [facility] [address] [place], [address] Platelet mean volume (Bld) [Entitic vol] 10.4 fL Normal 6.2-12.0 [facility] Comment on above: Order Comment: 304.2 Performed By: #### L 100.0500, L500.2500 #### [facility] [address] [place], [address] Platelets (Bld) [#/Vol] 370 10*3/uL Normal 150-450 [facility] Comment on above: Order Comment: 304.2 Performed By: #### L 100.0500, L500.2500 #### [facility] [address] [place], [address] RBC (Bld) [#/Vol] 3.82 10*6/uL Low 4.2-5.4 [facility] Comment on above: Order Comment: 304.2 Performed By: #### L 100.0500, L500.2500 #### [facility] [address] [place], [address] RDW SD 49.1 fl High 35.1-43.9 [facility] Comment on above: Order Comment: 304.2 Performed By: #### L 100.0500, L500.2500 #### [facility] [address] [place], [address] WBC (Bld) [#/Vol] 7.9 10*3/uL Normal 4.4-11.0 [facility] Comment on above: Order Comment: 304.2 Performed By: #### L 100.0500, L500.2500 #### [facility] [address] [place], [address] [id number] 02-04-[id number] [facility] [id number] 02-02-[id number] [facility] [id number] Being discharged to [facility] today. Family is aware. . [facility] [id number] MAR & Discharge med list transmitted to [facility] via [employer] per [facility] request. [phone] created in [facility] per [facility] request. Facility notified via [employer]. Electronically signed by NATALIA Melvin [facility] [phone] [facility] BASIC METABOLIC PANELon 06-2 Anion gap [Moles/Vol] 8 mmol/L Normal 3-13 [facility] Comment on above: Performed By: #### L [id number] ####Escort Vehicle Driver: BROOKE RINCON ([id number])[facility] [place] [address] Calcium [Mass/Vol] 8.4 mg/dL Low 8.8-10.0 [facility] Comment on above: Performed By: #### L AB15 ####Escort Vehicle Driver: BROOKE RINCON ([id number])[facility] [place] [address] Chloride [Moles/Vol] 109 mmol/L High 98-107 [facility] Comment on above: Performed By: #### L AB15 ####Escort Vehicle Driver: BROOKE RINCON ([id number])[facility] ([facility])[address] [place] [address] CO2 [Moles/Vol] 23 mmol/L Normal 23-31 [facility] Comment on above: Performed By: #### L AB15 ####Escort Vehicle Driver: BROOKE RINCON ([phone])[facility] ([facility])[address] [place] [address] Creatinine [Mass/Vol] 0.88 mg/dL Normal 0.57-1.11 [facility] Comment on above: Performed By: #### L AB15 ####Escort Vehicle Driver: BROOKE RINCON ([id number])[facility])[address] [place] [address] GLOMERULAR FILTRATION RATE ML/MIN/1.73 SQ M.PREDICTED 64.5 mL/min/1.73m*2 Normal >60.0 [facility] Comment on above: Result Comment: Calc ulation based on the Chronic Kidney Disease Epidemiology Collaboration (CKD-EPI) equation refit without adjustment for race Performed By: #### L [id number] ####Escort Vehicle Driver: BROOKE RINCON ([id number])[facility] ([facility])[address] [place] [address] Glucose [Mass/Vol] 120 mg/dL High 82-115 [facility] Comment on above: Performed By: #### L AB15 ####Escort Vehicle Driver: BROOKE RINCON ([id number])[facility])[address] [place] [address] Potassium [Moles/Vol] 3.4 mmol/L Low 3.5-5.1 [facility] Comment on above: Result Comment: [facility] potassium values may be up to 0.5 mmol/L lower than serum values. Performed By: #### L AB15 ####Escort Vehicle Driver: BROOKE RINCON ([id number])[facility] ([facility])[address] [place] [address] Sodium [Moles/Vol] 140 mmol/L Normal 136-145 [facility] Comment on above: Performed By: #### L [id number] ####Escort Vehicle Driver: BROOKE RINCON ([id number])[facility] ([facility])[address] [place] [address] Urea nitrogen [Mass/Vol] 19 mg/dL Normal 9-23 [facility] Comment on above: Performed By: #### L AB15 ####Escort Vehicle Driver: BROOKE RINCON ([id number])[facility])[address] [place] [address] Basic metabolic 1998 panelon 02-02-2025 Anion gap [Moles/Vol] 8 mmol/L 3 - 13 mmol/L [facility] Calcium [Mass/Vol] 8.4 mg/dL Low 8.8 - 10. 0 mg/dL [facility] Chloride [Moles/Vol] 109 mmol/L High 98 - 10 7 mmol/L [facility] CO2 [Moles/Vol] 23 mmol/L 23 - 31 mmol/L [facility] Creatinine [Mass/Vol] 0.88 mg/dL 0.57 - 1.11 mg/dL [facility] GFR/1.73 sq M.predicted (S/P/Bld) [Vol rate/Area] 64.5 mL/min - PINF [facility] Comment on above: Calculation based on the Chronic Kidney Disease Epidemiology Collaboration (CKD-EPI) equation refit without adjustment for race Glucose [Mass/Vol] 120 mg/dL High 82 - 115 mg/dL [facility] Interpretation and review of laboratory results Abnormal [facility] Potassium [Moles/Vol] 3.4 mmol/L Low 3.5 - 5.1 mmol/L [facility] Comment on above: Plasma potassium ashley ues may be up to 0.5 mmol/L lower than serum values. Sodium [Moles/Vol] 140 mmol/L 136 - 145 mmol/L [facility] Urea nitrogen [Mass/Vol] 19 mg/dL 9 - 23 mg/dL [facility] CBC W Auto Differential pane l (Bld)on 02-02-2025 Basophils (Bld) [#/Vol] 0.1 10*3/uL 0.0 - 0.2 10*3/uL [facility] Basophils/100 WBC (Bld) 0.5 % 0.0 - 2.0 % [facility] Eosinophils (Bld) [#/Vol] 0.5 10*3/uL 0.0 - 0.5 10*3/uL [facility] Eosinophils/100 WBC (Bld) 4.5 % 0.0 - 6.0 % [facility] Erythrocyte distribution width (RBC) [Ratio] 14.3 % 11.5 - 15.0 % [facility] Hematocrit (Bld) [Volume fraction] 33.4 % Low 35.0 - 47.0 % [facility] Hemoglobin (Bld) [Mass/Vol] 10.8 g/dL Low 11.7 - 16.0 g/dL [facility] Immature granulocytes (Bld) [#/Vol] 0.2 10*3/uL High NINF - 0.1 10*3/uL [facility] Immature granulocytes/100 WBC (Bld) 2 % 0.0 - 2.0 % [facility] Interpretation and review of laboratory results Abnormal [facility] Lymphocytes (Bld) [#/Vol] 1.8 10*3/uL 1.0 - 4.3 10*3/uL [facility] Lymphocytes/100 WBC (Bld) 18.3 % 15.0 - 45.0 % [facility] MCH (RBC) [Entitic mass] 29.9 pg 26.0 - 34.0 pg [facility] MCHC (RBC) [Mass/Vol] 32.3 % 30.5 - 36.0 % [facility] MCV (RBC) [Entitic vol] 92.5 fL 77.0 - 99.0 fL [facility] Monocytes (Bld) [#/Vol] 0.9 10*3/uL 0.0 - 0.9 10*3/uL [facility] Monocytes/100 WBC (Bld) 9.3 % 5.0 - 13.0 % [facility] Neutrophils (Bld) [#/Vol] 6.5 10*3/uL 1.8 - 7.5 10*3/uL [facility] Neutrophils/100 WBC (Bld) 65.4 % 38.0 - 82.0 % [facility] Nucleated RBC/100 WBC (Bld) [Ratio] 0 % [facility] [employer] Platelet mean volume (Bld) [Entitic vol] 9.8 fL 9.0 - 12.7 fL [facility] Platelets (Bld) [#/Vol] 298 10*3/uL 140 - 440 10*3/uL [facility] RBC (Bld) [#/Vol] 3.61 10*6/uL Low 3.80 - 5.20 10*6/uL [facility] WBC (Bld) [#/Vol] 10 10*3/uL 3.6 - 10.7 10*3/uL [facility] CBC WITH AUTO DIFFERENTIALon 02-02-2025 Basophils (Bld) [#/Vol] 0.1 10*3/uL Normal 0.0-0.2 [facility] Comment on above: Performed By: #### L [id number] ####Escort Vehicle Driver: BROOKE RINCON ([id number])[address] Basophils/100 WBC (Bld) 0.5 % Normal 0.0-2.0 [facility] Comment on above: Performed By: #### L [id number] ####Escort Vehicle Driver: BROOKE RINCON ([id number])[facility])[address] [place] [address] Eosinophils (Bld) [#/Vol] 0.5 10*3/uL Normal 0.0-0.5 [facility] Comment on above: Performed By: #### L [id number] ####Escort Vehicle Driver: BROOKE RINCON ([id number])[facility])[address] [place] [address] Eosinophils/100 WBC (Bld) 4.5 % Normal 0.0-6.0 [facility] Comment on above: Performed By: #### L [id number] ####Escort Vehicle Driver: BROOKE RINCON ([id number])[facility])[address] [place] [address] Erythrocyte distribution width (RBC) [Ratio] 14.3 % Normal 11.5-15.0 [facility] Comment on above: Performed By: #### L [id number] ####Escort Vehicle Driver: BROOKE RINCON ([id number])[address] Hematocrit (Bld) [Volume fraction] 33.4 % Low 35.0-47.0 [facility] Comment on above: Performed By: #### L [id number] ####Escort Vehicle Driver: BROOKE RINCON ([id number])[address] Hemoglobin (Bld) [Mass/Vol] 10.8 g/dL Low 11.7-16.0 [facility] Comment on above: Performed By: #### L [id number] ####Escort Vehicle Driver: BROOKE RINCON ([id number])[facility])[address] [place] [address] IMMATURE GRANS % 2.0 % Normal 0.0-2.0 [facility] Comment on above: Performed By: #### L [id number] ####Escort Vehicle Driver: BROOKE RINCON ([id number])[address] IMMATURE GRANS ABSOLUTE 0.2 10*3/uL High <0.1 [facility] Comment on above: Performed By: #### L [id number] ####Escort Vehicle Driver: BROOKE RINCON ([id number])[place] [address] [place] Lymphocytes (Bld) [#/Vol] 1.8 10*3/uL Normal 1.0-4.3 [facility] Comment on above: Performed By: #### L [id number] ####Escort Vehicle Driver: BROOKE RINCON ([id number])[facility])[address] [place] [address] Lymphocytes/100 WBC (Bld) 18.3 % Normal 15.0-45.0 [facility] Comment on above: Performed By: #### L [id number] ####Escort Vehicle Driver: BROOKE RINCON ([id number])[facility])[address] [place] [address] MCH (RBC) [Entitic mass] 29.9 pg Normal 26.0-34.0 [facility] Comment on above: Performed By: #### L [id number] ####Escort Vehicle Driver: BROOKE RINCON ([id number])[facility])[address] [place] [address] MCHC 32.3 % Normal 30.5-36.0 [facility] Comment on above: Performed By: #### L [id number] ####Escort Vehicle Driver: BROOKE RINCON ([id number])[facility])[address] [place] [address] MCV (RBC) [Entitic vol] 92.5 fL Normal 77.0-99.0 [facility] Comment on above: Performed By: #### L [id number] ####Escort Vehicle Driver: BROOKE RINCON ([id number])[facility])[address] [place] [address] Monocytes (Bld) [#/Vol] 0.9 10*3/uL Normal 0.0-0.9 [facility] Comment on above: Performed By: #### L [id number] ####Escort Vehicle Driver: BROOKE RINCON ([id number])[facility])[address] [place] [address] Monocytes/100 WBC (Bld) 9.3 % Normal 5.0-13.0 [facility] Comment on above: Performed By: #### L [id number] ####Escort Vehicle Driver: BROOKE RINCON ([id number])[facility] ([facility])[address] [place] [address] NEUTROPHILS ABSOLUTE 6.5 10*3/uL Normal 1.8-7.5 [facility] Comment on above: Performed By: #### L [id number] ####Escort Vehicle Driver: BROOKE RINCON ([id number])[facility] ([facility])[address] [place] [address] Neutrophils/100 WBC (Bld) 65.4 % Normal 38.0-82.0 [facility] Comment on above: Performed By: #### L [id number] ####Escort Vehicle Driver: BROOKE RINCON ([id number])[facility] ([facility])[address] [place] [address] NRBC 0.0 /100 WBCs Normal 0.0-2.0 [facility] Comment on above: Performed By: #### L [id number] ####Escort Vehicle Driver: BROOKE RINCON ([id number])[facility] ([facility])[address] [place] [address] Platelet mean volume (Bld) [Entitic vol] 9.8 fL Normal 9.0-12.7 [facility] Comment on above: Performed By: #### L [id number] ####Escort Vehicle Driver: BROOKE RINCON ([id number])[facility] ([facility])[address] [place] [address] [place] Platelets (Bld) [#/Vol] 298 10*3/uL Normal 140-440 [facility] Comment on above: Performed By: #### L [id number] ####Escort Vehicle Driver: BROOKE RINCON ([id number])[facility] ([facility])[address] [place] [address] RBC (Bld) [#/Vol] 3.61 10*6/uL Low 3.80-5.20 [facility] Comment on above: Performed By: #### L [id number] ####Escort Vehicle Driver: BROOKE RINCON ([id number])[facility] ([facility])[address] [place] [address] WBC (Bld) [#/Vol] 10.0 10*3/uL Normal 3.6-10.7 [facility] Comment on above: Performed By: #### L [id number] ####Escort Vehicle Driver: BROOKE RINCON ([id number])[facility] [place] [address] Laboratory - Chemistry and C hemistry - challengeon 02-02-2025 Glucose [Mass/Vol] 154 mg/dL High 70 - 100 mg/dL [facility] Glucose [Mass/Vol] 106 mg/dL High 70 - 100 mg/dL [facility] No Panel Informationon 02-02 Interpretation and review of laboratory results Abnormal [facility] Performed by: [address] [address] CLIA ID: [id number] [facility] Interpretation and review of laboratory results Abnormal [facility] Performed by: [facility], [address] [place] [address] CLIA ID: [id number] [facility] Progress Noteon 02-02-2025 Progress Note Normal [facility] Progress Note Normal [facility] Progress Note Normal [facility] 30on 02-01-2025 30 Normal [facility] [id number] 02-01-2025 [id number] Plan is placement at discharge. Home care to sign off. Please re-consult if a home care need arises. Normal [facility] [id number] 02-01-2025 [id number] [facility] able to accept pt, That is facility of choice. Will discharge there when stable.. Normal [facility] Bacteria identified Anaer cx Nom (Unsp spec)Ordered By: Deepika Taylor on 02-01-2025 Interpretation and review of laboratory results Abnormal [facility] Laboratory - Chemistry and C hemistry - challengeon 02-01-2025 Glucose [Mass/Vol] 223 mg/dL High 70 - 100 mg/dL [facility] Glucose [Mass/Vol] 188 mg/dL High 70 - 100 mg/dL [facility] Glucose [Mass/Vol] 174 mg/dL High 70 - 100 mg/dL [facility] Glucose [Mass/Vol] 148 mg/dL High 70 - 100 mg/dL [facility] Laboratory - Microbiology an d Antimicrobial susceptibilityOrdered By: Deepika Taylor on 02-01-2025 Bacteria identified Anaer cx Nom (Unsp spec) Rare Bacteroides fragilis Abnormal [facility] No Panel Informationon 02-01 Interpretation and review of laboratory results Abnormal [facility] Performed by: [address] [address] CLIA ID: [id number] [facility] Interpretation and review of laboratory results Abnormal [facility] Performed by: [address] [address] CLIA ID: [id number] [facility] Interpretation and review of laboratory results Abnormal [facility] Performed by: [facility], [address] [place] [address] CLIA ID: [id number] [facility] Interpretation and review of laboratory results Abnormal [facility] Performed by: [address] [address] CLIA ID: [id number] [facility] Progress Noteon 02-01-2025 Progress Note Normal [facility] 30on 01-31-2025 30 Normal [facility] 30 Normal [facility] [id number] 01-31-2025 [id number] Normal [facility] BASIC METABOLIC PANELon 01-11 Anion gap [Moles/Vol] 12 mmol/L Normal 3-13 [facility] Comment on above: Performed By: #### L [id number] ####Escort Vehicle Driver: BROOKE RINCON ([id number])[facility] ([facility])[address] [place] [address] Calcium [Mass/Vol] 9.4 mg/dL Normal 8.8-10.0 [facility] Comment on above: Performed By: #### L [id number] ####Escort Vehicle Driver: BROOKE RINCON ([id number])[facility])[address] [place] [address] Chloride [Moles/Vol] 107 mmol/L Normal 98-107 [facility] Comment on above: Performed By: #### L [id number] ####Escort Vehicle Driver: BROOKE RINCON ([id number])[facility])[address] [place] [address] CO2 [Moles/Vol] 20 mmol/L Low 23-31 [facility] Comment on above: Performed By: #### L [id number] ####Escort Vehicle Driver: BROOKE RINCON ([id number])[facility])[address] [place] [address] Creatinine [Mass/Vol] 1.04 mg/dL Normal 0.57-1.11 [facility] Comment on above: Performed By: #### L [id number] ####Escort Vehicle Driver: BROOKE RINCON ([id number])[facility])[address] [place] [address] GLOMERULAR FILTRATION RATE ML/MIN/1.73 SQ M.PREDICTED 52.8 mL/min/1.73m*2 Low >60.0 [facility] Comment on above: Result Comment: Calc ulation based on the Chronic Kidney Disease Epidemiology Collaboration (CKD-EPI) equation refit without adjustment for race Performed By: #### L [id number] ####Escort Vehicle Driver: BROOKE RINCON ([id number])[facility])[address] [place] [address] Glucose [Mass/Vol] 205 mg/dL High 82-115 [facility] Comment on above: Performed By: #### L [id number] ####Escort Vehicle Driver: BROOKE RINCON ([id number])[facility])[address] [place] [address] Potassium [Moles/Vol] 3.7 mmol/L Normal 3.5-5.1 [facility] Comment on above: Result Comment: [facility] potassium values may be up to 0.5 mmol/L lower than serum values. Performed By: #### L [id number] ####Escort Vehicle Driver: BROOKE RINCON ([id number])[facility] ([facility])[address] [place] [address] Sodium [Moles/Vol] 139 mmol/L Normal 136-145 [facility] Comment on above: Performed By: #### L [id number] ####Escort Vehicle Driver: BROOKE RINCON ([id number])[facility] ([facility])[address] [place] [address] Urea nitrogen [Mass/Vol] 27 mg/dL High 9-23 [facility] Comment on above: Performed By: #### L [id number] ####Escort Vehicle Driver: BROOKE RINCON ([id number])[facility] ([facility])[address] [place] [address] Bacteria identified Anaer cx Nom (Unsp spec)Ordered By: Kenya Baig on 01-31-2025 Interpretation and review of laboratory results Abnormal [facility] Bacteria identified Cx Nom ( Bld)on 01-31-2025 Interpretation and review of laboratory results Normal [facility] Blood Collection Sit e: Right Hand [facility] Interpretation and review of laboratory results Normal [facility] Blood Collection Sit e: Right Antecubital [facility] Basic metabolic 1998 panelon 01-31-2025 Anion gap [Moles/Vol] 12 mmol/L 3 - 13 mmol/L [facility] Calcium [Mass/Vol] 9.4 mg/dL 8.8 - 10. 0 mg/dL [facility] Chloride [Moles/Vol] 107 mmol/L 98 - 10 7 mmol/L [facility] CO2 [Moles/Vol] 20 mmol/L Low 23 - 31 mmol/L [facility] Creatinine [Mass/Vol] 1.04 mg/dL 0.57 - 1.11 mg/dL [facility] GFR/1.73 sq M.predicted (S/P/Bld) [Vol rate/Area] 52.8 mL/min Low - PINF [facility] Comment on above: Calculation based on the Chronic Kidney Disease Epidemiology Collaboration (CKD-EPI) equation refit without adjustment for race Glucose [Mass/Vol] 205 mg/dL High 82 - 115 mg/dL [facility] Interpretation and review of laboratory results Abnormal [facility] Potassium [Moles/Vol] 3.7 mmol/L 3.5 - 5.1 mmol/L [facility] Comment on above: Plasma potassium ashley ues may be up to 0.5 mmol/L lower than serum values. Sodium [Moles/Vol] 139 mmol/L 136 - 145 mmol/L [facility] Urea nitrogen [Mass/Vol] 27 mg/dL High 9 - 23 mg/dL [facility] CBC W Auto Differential pane l (Bld)Ordered By: Jorge Borden on 01-31-2025 Basophils (Bld) [#/Vol] 0 10*3/uL 0.0 - 0.2 10*3/uL [facility] Basophils/100 WBC (Bld) 0.5 % 0.0 - 2.0 % [facility] Eosinophils (Bld) [#/Vol] 0.4 10*3/uL 0.0 - 0.5 10*3/uL [facility] Eosinophils/100 WBC (Bld) 4.3 % 0.0 - 6.0 % [facility] Erythrocyte distribution width (RBC) [Ratio] 14.1 % 11.5 - 15.0 % [facility] Hematocrit (Bld) [Volume fraction] 34.7 % Low 35.0 - 47.0 % [facility] Hemoglobin (Bld) [Mass/Vol] 11.4 g/dL Low 11.7 - 16.0 g/dL [facility] Immature granulocytes (Bld) [#/Vol] 0.1 10*3/uL High NINF - 0.1 10*3/uL [facility] Immature granulocytes/100 WBC (Bld) 1.2 % 0.0 - 2.0 % [facility] Interpretation and review of laboratory results Abnormal [facility] Lymphocytes (Bld) [#/Vol] 1.2 10*3/uL 1.0 - 4.3 10*3/uL [facility] Lymphocytes/100 WBC (Bld) 14.8 % Low 15.0 - 45.0 % [facility] MCH (RBC) [Entitic mass] 30.2 pg 26.0 - 34.0 pg [facility] MCHC (RBC) [Mass/Vol] 32.9 % 30.5 - 36.0 % [facility] MCV (RBC) [Entitic vol] 91.8 fL 77.0 - 99.0 fL [facility] Monocytes (Bld) [#/Vol] 0.6 10*3/uL 0.0 - 0.9 10*3/uL [facility] Monocytes/100 WBC (Bld) 7.2 % 5.0 - 13.0 % [facility] Neutrophils (Bld) [#/Vol] 6 10*3/uL 1.8 - 7.5 10*3/uL [facility] Neutrophils/100 WBC (Bld) 72 % 38.0 - 82.0 % [facility] Nucleated RBC/100 WBC (Bld) [Ratio] 0 % [facility] Platelet mean volume (Bld) [Entitic vol] 10.2 fL 9.0 - 12.7 fL [facility] Platelets (Bld) [#/Vol] 283 10*3/uL 140 - 440 10*3/uL [facility] RBC (Bld) [#/Vol] 3.78 10*6/uL Low 3.80 - 5.20 10*6/uL [facility] WBC (Bld) [#/Vol] 8.3 10*3/uL 3.6 - 10.7 10*3/uL [facility] CBC WITH AUTO DIFFERENTIALon 01-31-2025 Basophils (Bld) [#/Vol] 0.0 10*3/uL Normal 0.0-0.2 [facility] Comment on above: Performed By: #### L [id number] ####Escort Vehicle Driver: BROOKE [id number])[address] Basophils/100 WBC (Bld) 0.5 % Normal 0.0-2.0 [facility] Comment on above: Performed By: #### L [id number] ####Escort Vehicle Driver: BROOKE [id number])[address] Eosinophils (Bld) [#/Vol] 0.4 10*3/uL Normal 0.0-0.5 [facility] Comment on above: Performed By: #### L [id number] ####Escort Vehicle Driver: BROOKE [id number])[facility])[address] [place] [address] Eosinophils/100 WBC (Bld) 4.3 % Normal 0.0-6.0 [facility] Comment on above: Performed By: #### L [id number] ####Escort Vehicle Driver: BROOKE RINCON ([id number])[facility])[address] [place] [address] Erythrocyte distribution width (RBC) [Ratio] 14.1 % Normal 11.5-15.0 [facility] Comment on above: Performed By: #### L [id number] ####Escort Vehicle Driver: BROOKE RINCON ([id number])[facility])[address] [place] [address] Hematocrit (Bld) [Volume fraction] 34.7 % Low 35.0-47.0 [facility] Comment on above: Performed By: #### L [id number] ####Escort Vehicle Driver: BROOKE RINCON ([id number])[facility])[address] [place] [address] Hemoglobin (Bld) [Mass/Vol] 11.4 g/dL Low 11.7-16.0 [facility] Comment on above: Performed By: #### L [id number] ####Escort Vehicle Driver: BROOKE RINCON ([id number])[facility])[address] [place] [address] IMMATURE GRANS % 1.2 % Normal 0.0-2.0 [facility] Comment on above: Performed By: #### L [id number] ####Escort Vehicle Driver: BROOKE RINCON ([id number])[facility])[address] [place] [address] IMMATURE GRANS ABSOLUTE 0.1 10*3/uL High <0.1 [facility] Comment on above: Performed By: #### L [id number] ####Escort Vehicle Driver: BROOKE RINCON ([id number])[facility])[address] [place] [address] [place] Lymphocytes (Bld) [#/Vol] 1.2 10*3/uL Normal 1.0-4.3 [facility] Comment on above: Performed By: #### L [id number] ####Escort Vehicle Driver: BROOKE RINCON ([id number])[facility])[address] [place] [address] Lymphocytes/100 WBC (Bld) 14.8 % Low 15.0-45.0 [facility] Comment on above: Performed By: #### L [id number] ####Escort Vehicle Driver: BROOKE RINCON ([id number])[facility])[address] [place] [address] MCH (RBC) [Entitic mass] 30.2 pg Normal 26.0-34.0 [facility] Comment on above: Performed By: #### L [id number] ####Escort Vehicle Driver: BROOKE RINCON ([id number])[facility])[address] [place] [address] MCHC 32.9 % Normal 30.5-36.0 [facility] Comment on above: Performed By: #### L [id number] ####Escort Vehicle Driver: BROOKE RINCON ([id number])[facility])[address] [place] [address] MCV (RBC) [Entitic vol] 91.8 fL Normal 77.0-99.0 [facility] Comment on above: Performed By: #### L [id number] ####Escort Vehicle Driver: BROOKE RINCON ([id number])[facility])[address] [place] [address] Monocytes (Bld) [#/Vol] 0.6 10*3/uL Normal 0.0-0.9 [facility] Comment on above: Performed By: #### L [id number] ####Escort Vehicle Driver: BROOKE RINCON ([id number])[facility])[address] [place] [address] Monocytes/100 WBC (Bld) 7.2 % Normal 5.0-13.0 [facility] Comment on above: Performed By: #### L [id number] ####Escort Vehicle Driver: BROOKE RINCON ([id number])[facility] ([facility])[address] [place] [address] NEUTROPHILS ABSOLUTE 6.0 10*3/uL Normal 1.8-7.5 [facility] Comment on above: Performed By: #### L [id number] ####Escort Vehicle Driver: BROOKE RINCON ([id number])[facility] ([facility])[address] [place] [address] Neutrophils/100 WBC (Bld) 72.0 % Normal 38.0-82.0 [facility] Comment on above: Performed By: #### L [id number] ####Escort Vehicle Driver: BROOKE RINCON ([id number])[facility])[address] [place] [address] NRBC 0.0 /100 WBCs Normal 0.0-2.0 [facility] Comment on above: Performed By: #### L [id number] ####Escort Vehicle Driver: BROOKE RINCON ([id number])[facility] ([facility])[address] [place] [address] Platelet mean volume (Bld) [Entitic vol] 10.2 fL Normal 9.0-12.7 [facility] Comment on above: Performed By: #### L [id number] ####Escort Vehicle Driver: BROOKE RINCON ([id number])[facility] ([facility])[address] [place] [address] Platelets (Bld) [#/Vol] 283 10*3/uL Normal 140-440 [facility] Comment on above: Performed By: #### L [id number] ####Escort Vehicle Driver: BROOKE RINCON ([id number])[facility] ([facility])[address] [place] [address] RBC (Bld) [#/Vol] 3.78 10*6/uL Low 3.80-5.20 [facility] Comment on above: Performed By: #### L [id number] ####Escort Vehicle Driver: BROOKE RINCON ([id number])[facility] ([facility])[address] [place] [address] WBC (Bld) [#/Vol] 8.3 10*3/uL Normal 3.6-10.7 [facility] Comment on above: Performed By: #### L [id number] ####Escort Vehicle Driver: BROOKE RINCON ([id number])[facility] ([facility])[address] [place] [address] Laboratory - Chemistry and C hemistry - challengeon 01-31-2025 Glucose [Mass/Vol] 284 mg/dL High 70 - 100 mg/dL [facility] Glucose [Mass/Vol] 147 mg/dL High 70 - 100 mg/dL [facility] Glucose [Mass/Vol] 200 mg/dL High 70 - 100 mg/dL [facility] Glucose [Mass/Vol] 118 mg/dL High 70 - 100 mg/dL [facility] Laboratory - Microbiology an d Antimicrobial susceptibilityOrdered By: Kenya Baig on 01-31-2025 Bacteria identified Anaer cx Nom (Unsp spec) Few Bacteroides fragilis Abnormal [facility] Laboratory - Microbiology an d Antimicrobial susceptibilityon 01-31-2025 Bacteria identified Cx Nom (Bld) No growth at 5 days [facility] Bacteria identified Cx Nom (Bld) No growth at 5 days [facility] No Panel Informationon 01-31 Interpretation and review of laboratory results Abnormal [facility] Performed by: [address] [address] CLIA ID: [id number] [facility] Interpretation and review of laboratory results Abnormal [facility] Performed by: [address] [address] CLIA ID: [id number] [facility] Interpretation and review of laboratory results Abnormal [facility] Performed by: [address] [address] CLIA ID: [id number] [facility] Interpretation and review of laboratory results Abnormal [facility] Performed by: [address] [address] CLIA ID: [id number] [facility] Progress Noteon 01-31-2025 Progress Note Normal [facility] Progress Note Normal [facility] 30on 01-30-2025 30 Normal [facility] 30 Normal [facility] Bacteria identified Aer cx N om (Unsp spec)Ordered By: Martita Joyce on 01-30-2025 Gram Stain Result Rare Polymorphonucle ar leukocytes per low power field Abnormal [facility] Gram Stain Result Positive Abnormal [facility] Interpretation and review of laboratory results Abnormal [facility] Bacteria identified Aer cx N om (Unsp spec)on 01-30-2025 Gram Stain Result Few Polymorphonuclea r leukocytes per low power field [facility] Gram Stain Result No organisms seen [facility] Interpretation and review of laboratory results Abnormal [facility] PBP2A Negative [facility] Laboratory - Chemistry and C hemistry - challengeon 01-30-2025 Glucose [Mass/Vol] 190 mg/dL High 70 - 100 mg/dL [facility] Glucose [Mass/Vol] 168 mg/dL High 70 - 100 mg/dL [facility] Glucose [Mass/Vol] 182 mg/dL High 70 - 100 mg/dL [facility] Glucose [Mass/Vol] 139 mg/dL High 70 - 100 mg/dL [facility] Laboratory - Microbiology an d Antimicrobial susceptibilityOrdered By: Martita Joyce on 01-30-2025 Bacteria identified Aer cx Nom (Unsp spec) Moderate skin fabio present [facility] Bacteria identified Aer cx Nom (Unsp spec) Few Staphylococcus aureus Abnormal [facility] Bacteria identified Aer cx Nom (Unsp spec) Few Streptococcus pyogenes Abnormal [facility] Comment on above: Susceptibility testi ng not performed. Beta-hemolytic streptococci are universally susceptible to beta-lactam antibiotics. If patient is beta-lactam allergic, providers should call the [facility]biology Laboratory ([phone]) within 3 days to request susceptibility testing. Laboratory - Microbiology an d Antimicrobial susceptibilityon 01-30-2025 Bacteria identified Aer cx Nom (Unsp spec) Rare skin fabio present [facility] Bacteria identified Aer cx Nom (Unsp spec) Rare Staphylococcus aureus Abnormal [facility] No Panel Informationon 01-30 Interpretation and review of laboratory results Abnormal [facility] Performed by: [place] [id number] CLIA ID: [id number] [facility] Interpretation and review of laboratory results Abnormal [facility] Performed by: [place] [id number] CLIA ID: [id number] [facility] Interpretation and review of laboratory results Abnormal [facility] Performed by: [facility], [address] [place] [address] CLIA ID: [id number] [facility] Interpretation and review of laboratory results Abnormal [facility] Performed by: [facility], [address] [place] [address] CLIA ID: [id number] [facility] Progress Noteon 01-30-2025 Progress Note Normal [facility] 30on 01-29-2025 30 Normal [facility] 30 Normal [facility] [id number] 01-29-2025 [id number] Normal [facility] [id number] 01-29-2025 [id number] Spoke with pt about SNF and [facility]. She states she is going home with [facility].. Normal [facility] BASIC METABOLIC PANELon 01-11 Anion gap [Moles/Vol] 10 mmol/L Normal 3-13 [facility] Comment on above: Performed By: #### L [id number] ####Escort Vehicle Driver: BROOKE RINCON ([id number])[facility] ([facility])[address] [place] [address] [place] Calcium [Mass/Vol] 9.0 mg/dL Normal 8.8-10.0 [facility] Comment on above: Performed By: #### L AB15 ####Escort Vehicle Driver: BROOKE RINCON ([id number])[facility] ([facility])[address] [place] [address] [place] Chloride [Moles/Vol] 108 mmol/L High 98-107 [facility] Comment on above: Performed By: #### L AB15 ####Escort Vehicle Driver: BROOKE RINCON ([id number])[facility] ([facility])[address] [place] [address] [place] CO2 [Moles/Vol] 18 mmol/L Low 23-31 [facility] Comment on above: Performed By: #### L AB15 ####Escort Vehicle Driver: BROOKE RINCON ([id number])[facility] ([facility])[address] [place] [address] Creatinine [Mass/Vol] 1.16 mg/dL High 0.57-1.11 [facility] Comment on above: Performed By: #### L AB15 ####Escort Vehicle Driver: BROOKE RINCON ([id number])[facility] ([facility])[address] [place] [address] [place] GLOMERULAR FILTRATION RATE ML/MIN/1.73 SQ M.PREDICTED 46.3 mL/min/1.73m*2 Low >60.0 [facility] Comment on above: Result Comment: Calc ulation based on the Chronic Kidney Disease Epidemiology Collaboration (CKD-EPI) equation refit without adjustment for race Performed By: #### L AB15 ####Escort Vehicle Driver: BROOKE RINCON ([id number])[facility])[address] [place] [address] [place] Glucose [Mass/Vol] 212 mg/dL High 82-115 [facility] Comment on above: Performed By: #### L AB15 ####Escort Vehicle Driver: BROOKE RINCON ([id number])[facility])[address] [place] [address] Potassium [Moles/Vol] 3.8 mmol/L Normal 3.5-5.1 [facility] Comment on above: Result Comment: [facility] potassium values may be up to 0.5 mmol/L lower than serum values. Performed By: #### L AB15 ####Escort Vehicle Driver: BROOKE RINCON ([id number])[facility] ([facility])[address] [place] [address] [place] Sodium [Moles/Vol] 136 mmol/L Normal 136-145 [facility] Comment on above: Performed By: #### L AB15 ####Escort Vehicle Driver: BROOKE RINCON ([id number])[facility] ([facility])[address] [place] [address] [place] Urea nitrogen [Mass/Vol] 35 mg/dL High 9-23 [facility] Comment on above: Performed By: #### L AB15 ####Escort Vehicle Driver: BROOKE RINCON ([id number])[facility] ([facility])[address] [place] [address] Basic metabolic 1998 panelon 01-29-2025 Anion gap [Moles/Vol] 10 mmol/L 3 - 13 mmol/L [facility] Calcium [Mass/Vol] 9 mg/dL 8.8 - 10. 0 mg/dL [facility] Chloride [Moles/Vol] 108 mmol/L High 98 - 10 7 mmol/L [facility] CO2 [Moles/Vol] 18 mmol/L Low 23 - 31 mmol/L [facility] Creatinine [Mass/Vol] 1.16 mg/dL High 0.57 - 1.11 mg/dL [facility] GFR/1.73 sq M.predicted (S/P/Bld) [Vol rate/Area] 46.3 mL/min Low - PINF [facility] Comment on above: Calculation based on the Chronic Kidney Disease Epidemiology Collaboration (CKD-EPI) equation refit without adjustment for race Glucose [Mass/Vol] 212 mg/dL High 82 - 115 mg/dL [facility] Interpretation and review of laboratory results Abnormal [facility] Potassium [Moles/Vol] 3.8 mmol/L 3.5 - 5.1 mmol/L [facility] Comment on above: Plasma potassium ashley ues may be up to 0.5 mmol/L lower than serum values. Sodium [Moles/Vol] 136 mmol/L 136 - 145 mmol/L [facility] Urea nitrogen [Mass/Vol] 35 mg/dL High 9 - 23 mg/dL [facility] CBC (HEMOGRAM)on 01-29-2025 Erythrocyte distribution width (RBC) [Ratio] 14.6 % Normal 11.5-15.0 [facility] Comment on above: Performed By: #### L [id number] ####Escort Vehicle Driver: BROOKE RINCON ([id number])[facility] ([facility])[address] [place] [address] Hematocrit (Bld) [Volume fraction] 29.2 % Low 35.0-47.0 [facility] Comment on above: Performed By: #### L [id number] ####Escort Vehicle Driver: BROOKE RINCON ([id number])[facility] ([facility])[address] [place] [address] Hemoglobin (Bld) [Mass/Vol] 9.5 g/dL Low 11.7-16.0 [facility] Comment on above: Performed By: #### L [id number] ####Escort Vehicle Driver: BROOKE RINCON ([id number])[facility] ([facility])[address] [place] [address] MCH (RBC) [Entitic mass] 30.4 pg Normal 26.0-34.0 [facility] Comment on above: Performed By: #### L AB294 ####Escort Vehicle Driver: BROOKE RINCON ([id number])[facility])[address] [place] [address] MCHC 32.5 % Normal 30.5-36.0 [facility] Comment on above: Performed By: #### L AB294 ####Escort Vehicle Driver: BROOKE RINCON ([id number])[facility] ([facility])[address] [place] [address] MCV (RBC) [Entitic vol] 93.6 fL Normal 77.0-99.0 [facility] Comment on above: Performed By: #### L [id number] ####Escort Vehicle Driver: BROOKE RINCON ([id number])[facility] ([facility])[address] [place] [address] Platelet mean volume (Bld) [Entitic vol] 10.9 fL Normal 9.0-12.7 [facility] Comment on above: Performed By: #### L [id number] ####Escort Vehicle Driver: BROOKE RINCON ([id number])[facility] ([facility])[address] [place] [address] Platelets (Bld) [#/Vol] 154 10*3/uL Normal 140-440 [facility] Comment on above: Performed By: #### L [id number] ####Escort Vehicle Driver: BROOKE RINCON ([id number])[facility] ([facility])[address] [place] [address] RBC (Bld) [#/Vol] 3.12 10*6/uL Low 3.80-5.20 [facility] Comment on above: Performed By: #### L [id number] ####Escort Vehicle Driver: BROOKE RINCON ([id number])[facility] ([facility])[address] [place] [address] WBC (Bld) [#/Vol] 11.7 10*3/uL High 3.6-10.7 [facility] Comment on above: Performed By: #### L [id number] ####Escort Vehicle Driver: BROOKE RINCON ([id number])[facility] [place] [address] CBC panel Auto (Bld)on 01-29 Erythrocyte distribution width (RBC) [Ratio] 14.6 % 11.5 - 15.0 % [facility] Hematocrit (Bld) [Volume fraction] 29.2 % Low 35.0 - 47.0 % [facility] Hemoglobin (Bld) [Mass/Vol] 9.5 g/dL Low 11.7 - 16.0 g/dL [facility] Interpretation and review of laboratory results Abnormal [facility] MCH (RBC) [Entitic mass] 30.4 pg 26.0 - 34.0 pg [facility] MCHC (RBC) [Mass/Vol] 32.5 % 30.5 - 36.0 % [facility] MCV (RBC) [Entitic vol] 93.6 fL 77.0 - 99.0 fL [facility] [employer] Platelet mean volume (Bld) [Entitic vol] 10.9 fL 9.0 - 12.7 fL [facility] Platelets (Bld) [#/Vol] 154 10*3/uL 140 - 440 10*3/uL [facility] RBC (Bld) [#/Vol] 3.12 10*6/uL Low 3.80 - 5.20 10*6/uL [facility] WBC (Bld) [#/Vol] 11.7 10*3/uL High 3.6 - 10.7 10*3/uL [facility] - Chemistry and C hemistry - challengeon 01-29-2025 Glucose [Mass/Vol] 209 mg/dL High 70 - 100 mg/dL [facility] Glucose [Mass/Vol] 174 mg/dL High 70 - 100 mg/dL [facility] Glucose [Mass/Vol] 231 mg/dL High 70 - 100 mg/dL [facility] Glucose [Mass/Vol] 190 mg/dL High 70 - 100 mg/dL [facility] Laboratory - Drug toxicology on 01-29-2025 Vancomycin trough [Mass/Vol] 9.9 ug/mL [facility] No Panel Informationon 01-29 Interpretation and review of laboratory results Abnormal [facility] Performed by: [facility], [address] [place] [address], [facility] [address] CLIA ID: [id number] [facility] Interpretation and review of laboratory results Abnormal [facility] Performed by: [facility], [address] [place] [address] CLIA ID: [id number] [facility] Interpretation and review of laboratory results Abnormal [facility] Performed by: [address] [address] CLIA ID: [id number] [facility] Interpretation and review of laboratory results Abnormal [facility] Performed by: [facility], [address] [place] [address], [facility] [address] CLIA ID: [id number] [facility] Progress Noteon 01-29-2025 Progress Note Normal [facility] Progress Note Normal [facility] Progress Note Vancomycin therapy h as been discontinued by Dr. Rox Covington on 01/29/25. Thank you for the consult. Pharmacy signing off for vancomycin dosing. Alex Mena RPh, PharmD. Date: 01/29/25 Time: 11:53 AM Normal [facility] Progress Note Normal [facility] VANCOMYCIN, AUC TIMED DOSING on 01-29-2025 VANCOMYCIN, AUC 9.9 ug/mL Normal [facility] Comment on above: Result Comment: ORDE R COMMENTS:Please draw random level at least >2 hours after the end of the last vancomycin infusion, or 30-minutes before next infusion.Toxicity is seen at concentrations >80-100 ug/mLTherapeutic (Peak) range: 20-40Therapeutic (Trough) range: 5-10 Performed By: #### L AB39 ####Escort Vehicle Driver: BROOKE RINCON ([id number])[facility] [place] [address] Vancomycin trough [Mass/Vol] on 01-29-2025 Toxicity is seen at concentrations >80-100 ug/mL Therapeutic (Peak) range: 20-40 Therapeutic (Trough) range: 5-10 [facility] 30on 01-28-2025 30 Normal [facility] BASIC METABOLIC PANELon 01-10 Anion gap [Moles/Vol] 10 mmol/L Normal 3-13 [facility] Comment on above: Performed By: #### L AB15 ####Escort Vehicle Driver: BROOKE RINCON ([id number])[facility] ([facility])[address] [place] [address] Calcium [Mass/Vol] 9.1 mg/dL Normal 8.8-10.0 [facility] Comment on above: Performed By: #### L AB15 ####Escort Vehicle Driver: BROOKE RINCON ([id number])[facility] ([facility])[address] [place] [address] Chloride [Moles/Vol] 105 mmol/L Normal 98-107 [facility] Comment on above: Performed By: #### L AB15 ####Escort Vehicle Driver: BROOKE RINCON ([id number])[facility] ([facility])[address] [place] [address] [place] CO2 [Moles/Vol] 15 mmol/L Low 23-31 [facility] Comment on above: Performed By: #### L AB15 ####Escort Vehicle Driver: BROOKE RINCON ([id number])[facility] ([facility])[address] [place] [address] Creatinine [Mass/Vol] 1.47 mg/dL High 0.57-1.11 [facility] Comment on above: Performed By: #### L AB15 ####Escort Vehicle Driver: BROOKE RINCON ([id number])[facility] ([facility])[address] [place] [address] [place] GLOMERULAR FILTRATION RATE ML/MIN/1.73 SQ M.PREDICTED 34.8 mL/min/1.73m*2 Low >60.0 [facility] Comment on above: Result Comment: Calc ulation based on the Chronic Kidney Disease Epidemiology Collaboration (CKD-EPI) equation refit without adjustment for race Performed By: #### L AB15 ####Escort Vehicle Driver: BROOKE RINCON ([id number])[facility] ([facility])[address] [place] [address] Glucose [Mass/Vol] 210 mg/dL High 82-115 [facility] Comment on above: Performed By: #### L AB15 ####Escort Vehicle Driver: BROOKE RINCON ([id number])[facility])[address] [place] [address] Potassium [Moles/Vol] 4.3 mmol/L Normal 3.5-5.1 [facility] Comment on above: Result Comment: [facility] potassium values may be up to 0.5 mmol/L lower than serum values. Performed By: #### L AB15 ####Escort Vehicle Driver: BROOKE RINCON ([id number])[facility] ([facility])[address] [place] [address] Sodium [Moles/Vol] 130 mmol/L Low 136-145 [facility] Comment on above: Performed By: #### L AB15 ####Escort Vehicle Driver: BROOKE RINCON ([id number])[facility])[address] [place] [address] Urea nitrogen [Mass/Vol] 31 mg/dL High 9-23 [facility] Comment on above: Performed By: #### L AB15 ####Escort Vehicle Driver: BROOKE RINCON ([id number])[facility])[address] [place] [address] Basic metabolic 1998 panelon 01-28-2025 Anion gap [Moles/Vol] 10 mmol/L 3 - 13 mmol/L [facility] Calcium [Mass/Vol] 9.1 mg/dL 8.8 - 10. 0 mg/dL [facility] Chloride [Moles/Vol] 105 mmol/L 98 - 10 7 mmol/L [facility] CO2 [Moles/Vol] 15 mmol/L Low 23 - 31 mmol/L [facility] Creatinine [Mass/Vol] 1.47 mg/dL High 0.57 - 1.11 mg/dL [facility] GFR/1.73 sq M.predicted (S/P/Bld) [Vol rate/Area] 34.8 mL/min Low - PINF [facility] Comment on above: Calculation based on the Chronic Kidney Disease Epidemiology Collaboration (CKD-EPI) equation refit without adjustment for race Glucose [Mass/Vol] 210 mg/dL High 82 - 115 mg/dL [facility] Interpretation and review of laboratory results Abnormal [facility] Potassium [Moles/Vol] 4.3 mmol/L 3.5 - 5.1 mmol/L [facility] Comment on above: Plasma potassium ashley ues may be up to 0.5 mmol/L lower than serum values. Sodium [Moles/Vol] 130 mmol/L Low 136 - 145 mmol/L [facility] Urea nitrogen [Mass/Vol] 31 mg/dL High 9 - 23 mg/dL [facility] CBC (HEMOGRAM)on 01-28-2025 Erythrocyte distribution width (RBC) [Ratio] 14.8 % Normal 11.5-15.0 [facility] Comment on above: Performed By: #### L [id number] ####Escort Vehicle Driver: BROOKE RINCON ([id number])[address] Hematocrit (Bld) [Volume fraction] 33.3 % Low 35.0-47.0 [facility] Comment on above: Performed By: #### L AB294 ####Escort Vehicle Driver: BROOKE RINCON ([id number])[facility])[address] [place] [address] Hemoglobin (Bld) [Mass/Vol] 10.6 g/dL Low 11.7-16.0 [facility] Comment on above: Performed By: #### L [id number] ####Escort Vehicle Driver: BROOKE RINCON ([id number])[address] MCH (RBC) [Entitic mass] 30.1 pg Normal 26.0-34.0 [facility] Comment on above: Performed By: #### L [id number] ####Escort Vehicle Driver: BROOKE RINCON ([id number])[facility] ([facility])[address] [place] [address] MCHC 31.8 % Normal 30.5-36.0 [facility] Comment on above: Performed By: #### L AB294 ####Escort Vehicle Driver: BROOKE RINCON ([id number])[facility])[address] [place] [address] MCV (RBC) [Entitic vol] 94.6 fL Normal 77.0-99.0 [facility] Comment on above: Performed By: #### L [id number] ####Escort Vehicle Driver: BROOKE RINCON ([id number])[facility])[address] [place] [address] Platelet mean volume (Bld) [Entitic vol] 11.2 fL Normal 9.0-12.7 [facility] Comment on above: Performed By: #### L [id number] ####Escort Vehicle Driver: BROOKE RINCON ([id number])[facility])[address] [place] [address] Platelets (Bld) [#/Vol] 163 10*3/uL Normal 140-440 [facility] Comment on above: Performed By: #### L [id number] ####Escort Vehicle Driver: BROOKE RINCON ([id number])[facility])[address] [place] [address] RBC (Bld) [#/Vol] 3.52 10*6/uL Low 3.80-5.20 [facility] Comment on above: Performed By: #### L [id number] ####Escort Vehicle Driver: BROOKE RINCON ([id number])[facility])[address] [place] [address] WBC (Bld) [#/Vol] 17.3 10*3/uL High 3.6-10.7 [facility] Comment on above: Performed By: #### L [id number] ####Escort Vehicle Driver: BROOKE RINCON ([id number])[facility] ([facility])[address] [place] [address] CBC panel Auto (Bld)on 01-28 Erythrocyte distribution width (RBC) [Ratio] 14.8 % 11.5 - 15.0 % [facility] Hematocrit (Bld) [Volume fraction] 33.3 % Low 35.0 - 47.0 % [facility] Hemoglobin (Bld) [Mass/Vol] 10.6 g/dL Low 11.7 - 16.0 g/dL [facility] Interpretation and review of laboratory results Abnormal [facility] MCH (RBC) [Entitic mass] 30.1 pg 26.0 - 34.0 pg [facility] MCHC (RBC) [Mass/Vol] 31.8 % 30.5 - 36.0 % [facility] MCV (RBC) [Entitic vol] 94.6 fL 77.0 - 99.0 fL [facility] Platelet mean volume (Bld) [Entitic vol] 11.2 fL 9.0 - 12.7 fL [facility] Platelets (Bld) [#/Vol] 163 10*3/uL 140 - 440 10*3/uL [facility] RBC (Bld) [#/Vol] 3.52 10*6/uL Low 3.80 - 5.20 10*6/uL [facility] WBC (Bld) [#/Vol] 17.3 10*3/uL High 3.6 - 10.7 10*3/uL [facility] - Chemistry and C hemistry - challengeon 01-28-2025 Glucose [Mass/Vol] 331 mg/dL High 70 - 100 mg/dL [facility] [employer] Glucose [Mass/Vol] 269 mg/dL High 70 - 100 mg/dL [facility] [employer] Glucose [Mass/Vol] 242 mg/dL High 70 - 100 mg/dL [facility] Glucose [Mass/Vol] 269 mg/dL High 70 - 100 mg/dL [facility] MR Hip - right WO and W [...] Electronically Signed Date/Time: 01/28/2025 10:04 AM EDT [employer] SYSTEM Patient Name: HANNA NELSON : 1940 [...] effusion. No lymphadenopathy in the visualized pelvis. [facility] [employer] Celso Palacios MD - 01/28/2025 Patient Name: HANNA NELSON : 1940 Exam [...] Electronically Signed Date/Time: 01/28/2025 10:04 AM EDT [employer] No Panel Informationon 01-28 Interpretation and review of laboratory results Abnormal [facility] Performed by: [facility], [address] [place] [address] [place] [address] CLIA ID: [id number] [facility] Interpretation and review of laboratory results Abnormal [facility] Performed by: [facility], [address] [place] [address] [place] [address] CLIA ID: [id number] [facility] Interpretation and review of laboratory results Abnormal [facility] Performed by: [facility], [address] [place] [address] CLIA ID: [id number] [facility] Interpretation and review of laboratory results Abnormal [facility] Performed by: [facility], [address] [place] [address] CLIA ID: [id number] [facility] Progress Noteon 01-28-2025 Progress Note Normal [facility] Progress Note Normal [facility] Progress Note Normal [facility] Progress Note Normal [facility] Progress Note Normal [facility] 30on 01-27-2025 30 Normal [facility] 30 Normal [facility] [id number] 01-27-2025 [id number] Normal [facility] BASIC METABOLIC PANELon 01-10 Anion gap [Moles/Vol] 8 mmol/L Normal 3-13 [facility] Comment on above: Performed By: #### L AB15 ####Escort Vehicle Driver: BROOKE RINCON ([id number])[facility] ([facility])[address] [place] [address] [place] Calcium [Mass/Vol] 8.7 mg/dL Low 8.8-10.0 [facility] Comment on above: Performed By: #### L AB15 ####Escort Vehicle Driver: BROOKE RINCON ([id number])[facility] ([facility])[address] [place] [address] [place] Chloride [Moles/Vol] 106 mmol/L Normal 98-107 [facility] Comment on above: Performed By: #### L AB15 ####Escort Vehicle Driver: BROOKE RINCON ([id number])[facility] ([facility])[address] [place] [address] [place] CO2 [Moles/Vol] 18 mmol/L Low 23-31 [facility] Comment on above: Performed By: #### L AB15 ####Escort Vehicle Driver: BROOKE RINCON ([id number])[facility])[address] [place] [address] Creatinine [Mass/Vol] 1.25 mg/dL High 0.57-1.11 [facility] Comment on above: Performed By: #### L AB15 ####Escort Vehicle Driver: BROOKE RINCON ([id number])[facility])[address] [place] [address] [place] GLOMERULAR FILTRATION RATE ML/MIN/1.73 SQ M.PREDICTED 42.3 mL/min/1.73m*2 Low >60.0 [facility] Comment on above: Result Comment: Calc ulation based on the Chronic Kidney Disease Epidemiology Collaboration (CKD-EPI) equation refit without adjustment for race Performed By: #### L AB15 ####Escort Vehicle Driver: BROOKE RINCON ([id number])[facility])[address] [place] [address] [place] Glucose [Mass/Vol] 136 mg/dL High 82-115 [facility] Comment on above: Performed By: #### L AB15 ####Escort Vehicle Driver: BROOKE RINCON ([id number])[facility])[address] [place] [address] Potassium [Moles/Vol] 4.2 mmol/L Normal 3.5-5.1 [facility] Comment on above: Result Comment: [facility] potassium values may be up to 0.5 mmol/L lower than serum values. Performed By: #### L AB15 ####Escort Vehicle Driver: BROOKE RINCON ([id number])[facility])[address] [place] [address] [place] Sodium [Moles/Vol] 132 mmol/L Low 136-145 [facility] Comment on above: Performed By: #### L AB15 ####Escort Vehicle Driver: BROOKE RINCON ([id number])[facility])[address] [place] [address] [place] Urea nitrogen [Mass/Vol] 36 mg/dL High 9-23 [facility] Comment on above: Performed By: #### L AB15 ####Escort Vehicle Driver: BROOKE RINCON ([id number])[facility] ([facility])[address] [place] [address] Bacteria identified Cx Nom ( U)on 01-27-2025 Interpretation and review of laboratory results Normal [facility] Basic metabolic 1998 panelon 01-27-2025 Anion gap [Moles/Vol] 8 mmol/L 3 - 13 mmol/L [facility] Calcium [Mass/Vol] 8.7 mg/dL Low 8.8 - 10. 0 mg/dL [facility] Chloride [Moles/Vol] 106 mmol/L 98 - 10 7 mmol/L [facility] CO2 [Moles/Vol] 18 mmol/L Low 23 - 31 mmol/L [facility] Creatinine [Mass/Vol] 1.25 mg/dL High 0.57 - 1.11 mg/dL [facility] GFR/1.73 sq M.predicted (S/P/Bld) [Vol rate/Area] 42.3 mL/min Low - PINF [facility] Comment on above: Calculation based on the Chronic Kidney Disease Epidemiology Collaboration (CKD-EPI) equation refit without adjustment for race Glucose [Mass/Vol] 136 mg/dL High 82 - 115 mg/dL [facility] Interpretation and review of laboratory results Abnormal [facility] Potassium [Moles/Vol] 4.2 mmol/L 3.5 - 5.1 mmol/L [facility] Comment on above: Plasma potassium ashley ues may be up to 0.5 mmol/L lower than serum values. Sodium [Moles/Vol] 132 mmol/L Low 136 - 145 mmol/L [facility] Urea nitrogen [Mass/Vol] 36 mg/dL High 9 - 23 mg/dL [facility] CBC W Auto Differential pane l (Bld)Ordered By: Elias Blanchard on 01-27-2025 Basophils (Bld) [#/Vol] 0.1 10*3/uL 0.0 - 0.2 10*3/uL [facility] Basophils/100 WBC (Bld) 0.3 % 0.0 - 2.0 % [facility] Eosinophils (Bld) [#/Vol] 0 10*3/uL 0.0 - 0.5 10*3/uL [facility] Eosinophils/100 WBC (Bld) 0.2 % 0.0 - 6.0 % [facility] Erythrocyte distribution width (RBC) [Ratio] 14.7 % 11.5 - 15.0 % [facility] Hematocrit (Bld) [Volume fraction] 31.5 % Low 35.0 - 47.0 % [facility] Hemoglobin (Bld) [Mass/Vol] 10.1 g/dL Low 11.7 - 16.0 g/dL [facility] Immature granulocytes (Bld) [#/Vol] 0.2 10*3/uL High NINF - 0.1 10*3/uL [facility] Immature granulocytes/100 WBC (Bld) 1.1 % 0.0 - 2.0 % [facility] Interpretation and review of laboratory results Abnormal [facility] Lymphocytes (Bld) [#/Vol] 0.6 10*3/uL Low 1.0 - 4.3 10*3/uL [facility] Lymphocytes/100 WBC (Bld) 2.8 % Low 15.0 - 45.0 % [facility] MCH (RBC) [Entitic mass] 30.2 pg 26.0 - 34.0 pg [facility] MCHC (RBC) [Mass/Vol] 32.1 % 30.5 - 36.0 % [facility] MCV (RBC) [Entitic vol] 94.3 fL 77.0 - 99.0 fL [facility] Monocytes (Bld) [#/Vol] 1 10*3/uL High 0.0 - 0.9 10*3/uL [facility] Monocytes/100 WBC (Bld) 5 % 5.0 - 13.0 % [facility] Neutrophils (Bld) [#/Vol] 17.6 10*3/uL High 1.8 - 7.5 10*3/uL [facility] Neutrophils/100 WBC (Bld) 90.6 % High 38.0 - 82.0 % [facility] Nucleated RBC/100 WBC (Bld) [Ratio] 0 % [facility] Platelet mean volume (Bld) [Entitic vol] 10.9 fL 9.0 - 12.7 fL [facility] Platelets (Bld) [#/Vol] 165 10*3/uL 140 - 440 10*3/uL [facility] RBC (Bld) [#/Vol] 3.34 10*6/uL Low 3.80 - 5.20 10*6/uL [facility] WBC (Bld) [#/Vol] 19.4 10*3/uL High 3.6 - 10.7 10*3/uL [facility] CBC WITH AUTO DIFFERENTIALon 01-27-2025 Basophils (Bld) [#/Vol] 0.1 10*3/uL Normal 0.0-0.2 [facility] Comment on above: Performed By: #### L [id number] ####Escort Vehicle Driver: BROOKE RINCON ([id number])[facility])[address] [place] [address] Basophils/100 WBC (Bld) 0.3 % Normal 0.0-2.0 [facility] Comment on above: Performed By: #### L [id number] ####Escort Vehicle Driver: BROOKE RINCON ([phone])[facility])[address] [place] [address] Eosinophils (Bld) [#/Vol] 0.0 10*3/uL Normal 0.0-0.5 [facility] Comment on above: Performed By: #### L [id number] ####Escort Vehicle Driver: BROOKE RINCON ([id number])[facility])[address] [place] [address] Eosinophils/100 WBC (Bld) 0.2 % Normal 0.0-6.0 [facility] Comment on above: Performed By: #### L [id number] ####Escort Vehicle Driver: BROOKE RINCON ([phone])[facility])[address] [place] [address] Erythrocyte distribution width (RBC) [Ratio] 14.7 % Normal 11.5-15.0 [facility] Comment on above: Performed By: #### L [id number] ####Escort Vehicle Driver: BROOKE RINCON ([id number])[facility])[address] [place] [address] [place] Hematocrit (Bld) [Volume fraction] 31.5 % Low 35.0-47.0 [facility] Comment on above: Performed By: #### L [id number] ####Escort Vehicle Driver: BROOKE RINCON ([id number])[facility])[address] [place] [address] Hemoglobin (Bld) [Mass/Vol] 10.1 g/dL Low 11.7-16.0 [facility] Comment on above: Performed By: #### L [id number] ####Escort Vehicle Driver: BROOKE RINCON ([id number])[facility])[address] [place] [address] IMMATURE GRANS % 1.1 % Normal 0.0-2.0 [facility] Comment on above: Performed By: #### L [id number] ####Escort Vehicle Driver: BROOKE RINCON ([id number])[facility])[address] [place] [address] IMMATURE GRANS ABSOLUTE 0.2 10*3/uL High <0.1 [facility] Comment on above: Performed By: #### L [id number] ####Escort Vehicle Driver: BROOKE RINCON ([phone])[facility])[address] [place] [address] Lymphocytes (Bld) [#/Vol] 0.6 10*3/uL Low 1.0-4.3 [facility] Comment on above: Performed By: #### L [id number] ####Escort Vehicle Driver: BROOKE RINCON ([phone])[facility])[address] [place] [address] Lymphocytes/100 WBC (Bld) 2.8 % Low 15.0-45.0 [facility] Comment on above: Performed By: #### L [id number] ####Escort Vehicle Driver: BROOKE RINCON ([id number])[facility])[address] [place] [address] MCH (RBC) [Entitic mass] 30.2 pg Normal 26.0-34.0 [facility] Comment on above: Performed By: #### L [id number] ####Escort Vehicle Driver: BROOKE RINCON ([id number])[facility])[address] [place] [address] MCHC 32.1 % Normal 30.5-36.0 [facility] Comment on above: Performed By: #### L [id number] ####Escort Vehicle Driver: BROOKE RINCON ([id number])[facility])[address] [place] [address] MCV (RBC) [Entitic vol] 94.3 fL Normal 77.0-99.0 [facility] Comment on above: Performed By: #### L [id number] ####Escort Vehicle Driver: BROOKE RINCON ([id number])[facility])[address] [place] [address] Monocytes (Bld) [#/Vol] 1.0 10*3/uL High 0.0-0.9 [facility] Comment on above: Performed By: #### L [id number] ####Escort Vehicle Driver: BROOKE RINCON ([id number])[facility])[address] [place] [address] Monocytes/100 WBC (Bld) 5.0 % Normal 5.0-13.0 [facility] Comment on above: Performed By: #### L [id number] ####Escort Vehicle Driver: BROOKE RINCON ([id number])[facility])[address] [place] [address] NEUTROPHILS ABSOLUTE 17.6 10*3/uL High 1.8-7.5 [facility] Comment on above: Performed By: #### L [id number] ####Escort Vehicle Driver: BROOKE RINCON ([id number])[facility])[address] [place] [address] Neutrophils/100 WBC (Bld) 90.6 % High 38.0-82.0 [facility] Comment on above: Performed By: #### L [id number] ####Escort Vehicle Driver: BROOKE RINCON ([id number])[facility] ([facility])[address] [place] [address] NRBC 0.0 /100 WBCs Normal 0.0-2.0 [facility] Comment on above: Performed By: #### L [id number] ####Escort Vehicle Driver: BROOKE RINCON ([id number])[facility] ([facility])[address] [place] [address] Platelet mean volume (Bld) [Entitic vol] 10.9 fL Normal 9.0-12.7 [facility] Comment on above: Performed By: #### L [id number] ####Escort Vehicle Driver: BROOKE RINCON ([id number])[facility] ([facility])[address] [place] [address] Platelets (Bld) [#/Vol] 165 10*3/uL Normal 140-440 [facility] Comment on above: Performed By: #### L [id number] ####Escort Vehicle Driver: BROOKE RINCON ([id number])[facility] ([facility])[address] [place] [address] RBC (Bld) [#/Vol] 3.34 10*6/uL Low 3.80-5.20 [facility] Comment on above: Performed By: #### L [id number] ####Escort Vehicle Driver: BROOKE RINCON ([id number])[facility] ([facility])[address] [place] [address] WBC (Bld) [#/Vol] 19.4 10*3/uL High 3.6-10.7 [facility] Comment on above: Performed By: #### L [id number] ####Escort Vehicle Driver: BROOKE RINCON ([id number])[facility] ([facility])[address] [place] [address] Consulton 01-27-2025 Consult Normal [facility] Laboratory - Chemistry and C hemistry - challengeon 01-27-2025 Glucose [Mass/Vol] 283 mg/dL High 70 - 100 mg/dL [facility] Glucose [Mass/Vol] 264 mg/dL High 70 - 100 mg/dL [facility] Glucose [Mass/Vol] 262 mg/dL High 70 - 100 mg/dL [facility] Glucose [Mass/Vol] 244 mg/dL High 70 - 100 mg/dL [facility] Glucose [Mass/Vol] 292 mg/dL High 70 - 100 mg/dL [facility] Laboratory - Drug toxicology on 01-27-2025 Vancomycin trough [Mass/Vol] 11.6 ug/mL [facility] Laboratory - Microbiology an d Antimicrobial susceptibilityon 01-27-2025 Bacteria identified Cx Nom (U) Normal urogenital fabio present [facility] MR Foot - right WO and W con trast Quin 01-27-2025 Impression: 1. Sequela of severe Charcot arthropathy. 2. Mild soft tissue swelling and edema about the mid and forefoot, especially dorsally; correlate with low-grade cellulitis. No organized fluid collection or abscess. 3. No osteomyelitis. Report Dictated on Electronically Signed By: Celso Palacios MD Electronically Signed Date/Time: 01/27/2025 7:58 AM EDT [employer] [facility] 1940 [id number] Exam Date/Time: 01/26/2025 16:32 Procedure: MR FOOT [...] foot muscles. No flexor or extensor tenosynovitis. [facility] Celso Palacios MD - 01/27/2025 Patient Name: HANNA NELSON : 1940 [facility]#: [id number] Exam Date/Time: 01/26/2025 16:32 Procedure: MR FOOT [...] Electronically Signed Date/Time: 01/27/2025 7:58 AM EDT [facility] MR Foot - right WO and W con trast IVOrdered By: Celso Palacios on 01-27-2025 [employer] Work Phone: MR Hip - right WO and W cont rast Quin 01-27-2025 Radiology Study observation (narrative) [facility] No Panel Informationon 01-27 Interpretation and review of laboratory results Abnormal [facility] Performed by: [facility], [address] [place] [address] CLIA ID: [id number] [facility] Interpretation and review of laboratory results Abnormal [facility] Performed by: [facility], [address] [place] [address] CLIA ID: [id number] [facility] Interpretation and review of laboratory results Abnormal [facility] Performed by: [facility], [address] [place] [address] CLIA ID: [id number] [facility] Interpretation and review of laboratory results Abnormal [facility] Performed by: [facility], [address] [place] [address], [facility] [address] CLIA ID: [id number] [facility] Interpretation and review of laboratory results Abnormal [facility] Performed by: [facility], [address] [place] [address], [facility] [address] CLIA ID: [id number] [facility] Progress Noteon 01-27-2025 Progress Note Normal [facility] Progress Note Normal [facility] Progress Note Normal [facility] Progress Note Normal [facility] Progress Note Normal [facility] VANCOMYCIN, AUC TIMED DOSING on 01-27-2025 VANCOMYCIN, AUC 11.6 ug/mL Normal [facility] Comment on above: Result Comment: CARLTON Geiger COMMENTS:Please draw random level at least >2 hours after the end of the last vancomycin infusion, or 30-minutes before next infusion.Toxicity is seen at concentrations >80-100 ug/mLTherapeutic (Peak) range: 20-40Therapeutic (Trough) range: 5-10 Performed By: #### L [id number] ####Escort Vehicle Driver: BROOKE RINCON ([id number])[facility] ([facility])[address] [place] [address] [facility] Vancomycin trough [Mass/Vol] on 01-27-2025 Toxicity is seen at concentrations >80-100 ug/mL Therapeutic (Peak) range: 20-40 Therapeutic (Trough) range: 5-10 [facility] XR FEMUR 2+ VW RIGHTon 01-27 XR FEMUR 2+ VW RIGHT Normal [facility] XR Femur - right 2 Viewson 0 01-27-2025 1. Remote right intertrochanteric hip fracture status post malick and pin placement. 2. Mild edematous changes about the knee. Report Dictated on Electronically Signed By: Willi Soriano MD Electronically Signed Date/Time: 01/27/2025 3:35 PM EDT [facility] Patient Name: HANNA NELSON : 1940 [...] right hip. The knee is mildly edematous. [facility] Willi Soriano MD - 01/27/2025 Patient Name: [...] Electronically Signed Date/Time: 01/27/2025 3:35 PM EDT [facility] Radiology Study observation (narrative) [facility] XR Femur - right 2 ViewsOrde red By: Willi Soriano on 01-27-2025 [facility] Work Phone: [phone] 01-26-2025 [id number] Copy of DPOA found i n electronic record naming sonHi as [phone] [facility] [phone] Pt came to ER with c /o generalized illness. BP, BR and BS are all up. Started on IV antibiotics for skin infection. Needs a vascular US. Wants to go home, will follow for needs... Normal [facility] ABO and Rh group Confirm Nom (Bld)on 01-26-2025 ABO group Nom (Bld) A [facility] D Ag Ql (RBC) Positive [facility] BLOOD CULTUREon 01-26-2025 Bacteria identified Cx Nom (Bld) Normal [facility] Comment on above: Performed By: #### L [id number] ####Escort Vehicle Driver: BROOKE RINCON ([id number])[facility] ([facility])[address] [place] [address] Bacteria identified Cx Nom (Bld) Normal [facility] Comment on above: Performed By: #### L [id number] ####Escort Vehicle Driver: BROOKE RINCON ([id number])[facility] [place] [address] BLOOD TYPE AND SCREEN GELon 01-26-2025 ABO GROUPING A Normal [facility] Comment on above: Performed By: #### L [id number] ####Escort Vehicle Driver: BROOKE RINCON ([phone])[facility] ([facility])[address] [place] [address] RH TYPE IN BLOOD Positive Normal [facility] Comment on above: Performed By: #### L [id number] ####Escort Vehicle Driver: BROOKE RINCON ([phone])[facility] ([facility])[address] [place] [address] Blood type and Crossmatch abby coombs (Bld)on 01-26-2025 ABO group Nom (Bld) A [facility] Blood group antibody screen GEL Ql Negative [facility] D Ag Ql (RBC) Positive [facility] C-REACTIVE PROTEINon 025 CRP [Mass/Vol] 95.4 mg/L High <5.0 [facility] Comment on above: Performed By: #### L [id number], [id number] ####Escort Vehicle Driver: BROOKE RINCON ([id number])[facility] ([facility])[address] [place] [address] CBC W Auto Differential pane l (Bld)Ordered By: Brooke Serna on 01-26-2025 Basophils (Bld) [#/Vol] 0 10*3/uL 0.0 - 0.2 10*3/uL [facility] Basophils/100 WBC (Bld) 0.2 % 0.0 - 2.0 % [facility] Eosinophils (Bld) [#/Vol] 0 10*3/uL 0.0 - 0.5 10*3/uL [facility] Eosinophils/100 WBC (Bld) 0 % 0.0 - 6.0 % [facility] Erythrocyte distribution width (RBC) [Ratio] 14.6 % 11.5 - 15.0 % [facility] Hematocrit (Bld) [Volume fraction] 37.3 % 35.0 - 47.0 % [facility] Hemoglobin (Bld) [Mass/Vol] 11.4 g/dL Low 11.7 - 16.0 g/dL [facility] Immature granulocytes (Bld) [#/Vol] 0.1 10*3/uL High NINF - 0.1 10*3/uL [facility] Immature granulocytes/100 WBC (Bld) 0.7 % 0.0 - 2.0 % [facility] Interpretation and review of laboratory results Abnormal [facility] Lymphocytes (Bld) [#/Vol] 0.7 10*3/uL Low 1.0 - 4.3 10*3/uL [facility] Lymphocytes/100 WBC (Bld) 3.6 % Low 15.0 - 45.0 % [facility] MCH (RBC) [Entitic mass] 30.3 pg 26.0 - 34.0 pg [facility] MCHC (RBC) [Mass/Vol] 30.6 % 30.5 - 36.0 % [facility] MCV (RBC) [Entitic vol] 99.2 fL High 77.0 - 99.0 fL [facility] Monocytes (Bld) [#/Vol] 0.8 10*3/uL 0.0 - 0.9 10*3/uL [facility] Monocytes/100 WBC (Bld) 4.1 % Low 5.0 - 13.0 % [facility] Neutrophils (Bld) [#/Vol] 16.9 10*3/uL High 1.8 - 7.5 10*3/uL [facility] Neutrophils/100 WBC (Bld) 91.4 % High 38.0 - 82.0 % [facility] Nucleated RBC/100 WBC (Bld) [Ratio] 0 % [facility] Platelet mean volume (Bld) [Entitic vol] 11.2 fL 9.0 - 12.7 fL [facility] Platelets (Bld) [#/Vol] 110 10*3/uL Low 140 - 440 10*3/uL [facility] RBC (Bld) [#/Vol] 3.76 10*6/uL Low 3.80 - 5.20 10*6/uL [facility] WBC (Bld) [#/Vol] 18.4 10*3/uL High 3.6 - 10.7 10*3/uL [facility] CBC WITH AUTO DIFFERENTIALon 01-26-2025 Basophils (Bld) [#/Vol] 0.0 10*3/uL Normal 0.0-0.2 [facility] Comment on above: Performed By: #### L [id number] ####Escort Vehicle Driver: BROOKE RINCON ([id number])[facility] ([address] Basophils/100 WBC (Bld) 0.2 % Normal 0.0-2.0 [facility] Comment on above: Performed By: #### L [id number] ####Escort Vehicle Driver: BROOKE [id number])[address] Eosinophils (Bld) [#/Vol] 0.0 10*3/uL Normal 0.0-0.5 [facility] Comment on above: Performed By: #### L [id number] ####Escort Vehicle Driver: BROOKE RINCON ([id number])[address] Eosinophils/100 WBC (Bld) 0.0 % Normal 0.0-6.0 [facility] Comment on above: Performed By: #### L [id number] ####Escort Vehicle Driver: BROOKE RINCON ([id number])[address] Erythrocyte distribution width (RBC) [Ratio] 14.6 % Normal 11.5-15.0 [facility] Comment on above: Performed By: #### L [id number] ####Escort Vehicle Driver: BROOKE RINCON ([id number])[address] Hematocrit (Bld) [Volume fraction] 37.3 % Normal 35.0-47.0 [facility] Comment on above: Performed By: #### L [id number] ####Escort Vehicle Driver: BROOKE RINCON ([id number])[address] Hemoglobin (Bld) [Mass/Vol] 11.4 g/dL Low 11.7-16.0 [facility] Comment on above: Performed By: #### L [id number] ####Escort Vehicle Driver: BROOKE RINCON ([id number])[facility])[address] [place] [address] IMMATURE GRANS % 0.7 % Normal 0.0-2.0 [facility] Comment on above: Performed By: #### L [id number] ####Escort Vehicle Driver: BROOKE RINCON ([id number])[address] IMMATURE GRANS ABSOLUTE 0.1 10*3/uL High <0.1 [facility] Comment on above: Performed By: #### L [id number] ####Escort Vehicle Driver: BROOKE RINCON ([id number])[facility])[address] [place] [address] Lymphocytes (Bld) [#/Vol] 0.7 10*3/uL Low 1.0-4.3 [facility] Comment on above: Performed By: #### L [id number] ####Escort Vehicle Driver: BROOKE RINCON ([phone])[facility])[address] [place] [address] Lymphocytes/100 WBC (Bld) 3.6 % Low 15.0-45.0 [facility] Comment on above: Performed By: #### L [id number] ####Escort Vehicle Driver: BROOKE RINCON ([id number])[facility])[address] [place] [address] MCH (RBC) [Entitic mass] 30.3 pg Normal 26.0-34.0 [facility] Comment on above: Performed By: #### L [id number] ####Escort Vehicle Driver: BROOKE RINCON ([id number])[facility])[address] [place] [address] MCHC 30.6 % Normal 30.5-36.0 [facility] Comment on above: Performed By: #### L [id number] ####Escort Vehicle Driver: BROOKE RINCON ([id number])[facility])[address] [place] [address] MCV (RBC) [Entitic vol] 99.2 fL High 77.0-99.0 [facility] Comment on above: Performed By: #### L [id number] ####Escort Vehicle Driver: BROOKE RINCON ([id number])[facility])[address] [place] [address] Monocytes (Bld) [#/Vol] 0.8 10*3/uL Normal 0.0-0.9 [facility] Comment on above: Performed By: #### L [id number] ####Escort Vehicle Driver: BROOKE RINCON ([id number])[facility] ([facility])[address] [place] [address] Monocytes/100 WBC (Bld) 4.1 % Low 5.0-13.0 [facility] Comment on above: Performed By: #### L [id number] ####Escort Vehicle Driver: BROOKE RINCON ([phone])[facility] ([facility])[address] [place] [address] NEUTROPHILS ABSOLUTE 16.9 10*3/uL High 1.8-7.5 [facility] Comment on above: Performed By: #### L [id number] ####Escort Vehicle Driver: BROOKE RINCON ([id number])[facility])[address] [place] [address] Neutrophils/100 WBC (Bld) 91.4 % High 38.0-82.0 [facility] Comment on above: Performed By: #### L [id number] ####Escort Vehicle Driver: BROOKE RINCON ([id number])[facility] ([facility])[address] [place] [address] NRBC 0.0 /100 WBCs Normal 0.0-2.0 [facility] Comment on above: Performed By: #### L [id number] ####Escort Vehicle Driver: BROOKE RINCON ([id number])[facility])[address] [place] [address] Platelet mean volume (Bld) [Entitic vol] 11.2 fL Normal 9.0-12.7 [facility] Comment on above: Performed By: #### L [id number] ####Escort Vehicle Driver: BROOKE RINCON ([id number])[facility])[address] [place] [address] [place] Platelets (Bld) [#/Vol] 110 10*3/uL Low 140-440 [facility] Comment on above: Performed By: #### L [id number] ####Escort Vehicle Driver: BROOKE RINCON ([id number])[facility] ([facility])[address] [place] [address] RBC (Bld) [#/Vol] 3.76 10*6/uL Low 3.80-5.20 [facility] Comment on above: Performed By: #### L [id number] ####Escort Vehicle Driver: BROOKE RINCON ([id number])[facility] [place] [address] WBC (Bld) [#/Vol] 18.4 10*3/uL High 3.6-10.7 [facility] Comment on above: Performed By: #### L [id number] ####Escort Vehicle Driver: BROOKE RINCON ([id number])[facility] ([facility])[address] [place] [address] COMPLETE URINALYSIS WITH REF MAI TO CULTUREon 01-26-2025 BACTERIA (#/HPF) IN URINE Negative Normal Negative [facility] Comment on above: Performed By: #### L [id number] ####Escort Vehicle Driver: BROOKE RINCON ([id number])[facility] ([facility])[address] [place] [address] [place] BILIRUBIN, TOTAL PRESENCE IN URINE Negative Normal Negative [facility] Comment on above: Performed By: #### L [id number] ####Escort Vehicle Driver: BROOKE RINCON ([id number])[facility] G[facility]RIELRODOLFO [facility] ([facility])[address] [place] [address] Clarity (U) Clear Normal Clear [facility] Comment on above: Performed By: #### L [id number] ####Escort Vehicle Driver: BROOKE RINCON ([id number])[facility] ([facility])[address] [place] [address] Color (U) Colorless Normal Lt. Yellow [facility] Comment on above: Performed By: #### L [id number] ####Escort Vehicle Driver: BROOKE RINCON ([id number])[facility] ([facility])[address] [place] [address] [place] GLUCOSE (MG/DL) IN URINE >1,000 Abnormal Normal (<70) [facility] Comment on above: Performed By: #### L [id number] ####Escort Vehicle Driver: BROOKE RINCON ([id number])[facility]ENTERJuliana REYNOLDS RITTMAN (SWRLAB)[address] [place] [address] HEMOGLOBIN PRESENCE IN URINE Negative Normal Negative [facility] Comment on above: Performed By: #### L [id number] ####Escort Vehicle Driver: BROOKE RINCON ([id number])[facility]ENTERJuliana MEADRODOLFO RITTMAN (SWRLAB)[address] [place] [address] Ketones Ql (U) Negative Normal Negative [facility] Comment on above: Performed By: #### L [id number] ####Escort Vehicle Driver: BROOKE RINCON ([phone])[facility]ENTER[facility] REYNOLDS RITTMAN (SWRLAB)[address] [place] [address] LEUKOCYTE ESTERASE PRESENCE IN URINE BY TEST STRIP Negative Normal Negative [facility] Comment on above: Performed By: #### L [id number] ####Escort Vehicle Driver: BROOKE RINCON ([id number])[facility]ENTERJuliana MEADRODOLFO RITTMAN (SWRLAB)[address] [place] [address] [place] NITRITE PRESENCE IN URINE Negative Normal Negative [facility] Comment on above: Performed By: #### L [id number] ####Escort Vehicle Driver: BROOKE RINCON ([id number])[facility]ENTERJuliana REYNOLDS RITTMAN (SWRLAB)[address] [place] [address] [place] NON-SQUAMOUS EPITHELIAL (#/HPF) IN URINE 3-5 Abnormal Negative [facility] Comment on above: Performed By: #### L [id number] ####Escort Vehicle Driver: BROOKE RINCON ([id number])[facility]ENTERJuliana REYNOLDS RITTMAN (SWRLAB)[address] [place] [address] [place] pH (U) 6.0 [pH] Normal 5.0-8.0 [facility] Comment on above: Performed By: #### L [id number] ####Escort Vehicle Driver: BROOKE RINCON ([id number])[facility]ENTERJuliana REYNOLDS RITTMAN (SWRLAB)[address] [place] [address] Protein (U) [Mass/Vol] 20 mg/dL Abnormal Negative [facility] Comment on above: Performed By: #### L [id number] ####Escort Vehicle Driver: BROOKE RINCON ([id number])[facility]ENTERJuliana REYNOLDS RITTMAN (SWRLAB)[address] [place] [address] [place] RBC (#/HPF) IN URINE SEDIMENT 0-2 Normal 0-2 [facility] Comment on above: Performed By: #### L [id number] ####Escort Vehicle Driver: BROOKE RINCON ([id number])[facility]ENTERJuliana REYNOLDS RITTMAN (SWRLAB)[address] [place] [address] Specific gravity (U) [Rel density] 1.013 Normal 1.005-1.03 0 [facility] Comment on above: Result Comment: CARLTON Geiger COMMENTS:A specimen with <=10 WBC is not consistent with inflammation. This specimen will not reflex to a urine culture. Performed By: #### L [id number] ####Escort Vehicle Driver: BROOKE RINCON ([id number])[facility]ENTERJuliana REYNOLDS RITTMAN (SWRLAB)[address] [place] [address] Specimen volume (U) 12 mL Normal [facility] Comment on above: Performed By: #### L [id number] ####Escort Vehicle Driver: BROOKE RINCON ([id number])[facility]ENTERJuliana REYNOLDS RITTMAN (SWRLAB)[address] [place] [address] SQUAMOUS EPITHELIAL CELLS (#/HPF) IN URINE SEDIMENT 3-5 Normal 3-5 [facility] Comment on above: Performed By: #### L [id number] ####Escort Vehicle Driver: BROOKE RINCON ([id number])[facility]ENTERJuliana REYNOLDS RITTMAN (SWRLAB)[address] [place] [address] UROBILINOGEN (MG/DL) IN URINE Normal Normal Normal (0-1) [facility] Comment on above: Performed By: #### L [id number] ####Escort Vehicle Driver: BROOKE RINCON ([id number])[facility]ENTERJuliana MEADRODOLFO GRACIELAAN (SWRLAB)[address] [place] [address] WBC (LEUKOCYTE) (#/HPF) IN URINE SEDIMENT 3-5 Normal 0-5 [facility] Comment on above: Performed By: #### L [id number] ####Escort Vehicle Driver: BROOKE RINCON ([id number])[facility]ENTERJuliana GARCIA (SWRLAB)[address] [place] [address] COMPREHENSIVE METABOLIC PANE David 01-26-2025 Albumin [Mass/Vol] 3.1 g/dL Low 3.4-4.8 [facility] Comment on above: Performed By: #### L [id number] ####Escort Vehicle Driver: BROOKE RINCON ([id number])[facility] ([facility])[address] [place] [address] ALP [Catalytic activity/Vol] 40 U/L Normal 40-150 [facility] Comment on above: Performed By: #### L [id number] ####Escort Vehicle Driver: BROOKE RINCON ([id number])[facility] ([facility])[address] [place] [address] ALT [Catalytic activity/Vol] 11 U/L Normal <30 [facility] Comment on above: Performed By: #### L [id number] ####Escort Vehicle Driver: BROOKE RINCON ([id number])[facility] ([facility])[address] [place] [address] Anion gap [Moles/Vol] 9 mmol/L Normal 3-13 [facility] Comment on above: Performed By: #### L [id number] ####Escort Vehicle Driver: BROOKE RINCON ([id number])[facility])[address] [place] [address] AST [Catalytic activity/Vol] 17 U/L Normal <34 [facility] Comment on above: Performed By: #### L [id number] ####Escort Vehicle Driver: BROOKE RINCON ([id number])[facility] [place] [address] Bilirubin [Mass/Vol] 0.4 mg/dL Normal <1.2 [facility] Comment on above: Performed By: #### L [id number] ####Escort Vehicle Driver: BROOKE RINCON ([id number])[facility] [place] [address] Calcium [Mass/Vol] 8.7 mg/dL Low 8.8-10.0 [facility] Comment on above: Performed By: #### L [id number] ####Escort Vehicle Driver: BROOKE RINCON ([id number])[facility] ([facility])[address] [place] [address] Chloride [Moles/Vol] 107 mmol/L Normal 98-107 [facility] Comment on above: Performed By: #### L [id number] ####Escort Vehicle Driver: BROOKE RINCON ([id number])[facility] [place] [address] CO2 [Moles/Vol] 19 mmol/L Low 23-31 [facility] Comment on above: Performed By: #### L [id number] ####Escort Vehicle Driver: BROOKE RINCON ([id number])[facility] ([facility])[address] [place] [address] Creatinine [Mass/Vol] 1.44 mg/dL High 0.57-1.11 [facility] Comment on above: Performed By: #### L [id number] ####Escort Vehicle Driver: BROOKE RINCON ([id number])[facility] [place] [address] [place] GLOMERULAR FILTRATION RATE ML/MIN/1.73 SQ M.PREDICTED 35.7 mL/min/1.73m*2 Low >60.0 [facility] Comment on above: Result Comment: Calc ulation based on the Chronic Kidney Disease Epidemiology Collaboration (CKD-EPI) equation refit without adjustment for race Performed By: #### L [id number] ####Escort Vehicle Driver: BROOKE RINCON ([id number])[facility])[address] [place] [address] [place] Glucose [Mass/Vol] 250 mg/dL High 82-115 [facility] Comment on above: Performed By: #### L [id number] ####Escort Vehicle Driver: BROOKE RINCON ([id number])[facility])[address] [place] [address] Potassium [Moles/Vol] 4.5 mmol/L Normal 3.5-5.1 [facility] Comment on above: Result Comment: [facility] potassium values may be up to 0.5 mmol/L lower than serum values. Performed By: #### L [id number] ####Escort Vehicle Driver: BROOKE RINCON ([id number])[facility])[address] [place] [address] Protein [Mass/Vol] 6.4 g/dL Normal 6.4-8.3 [facility] Comment on above: Performed By: #### L [id number] ####Escort Vehicle Driver: BROOKE RINCON ([id number])[facility] ([facility])[address] [place] [address] Sodium [Moles/Vol] 135 mmol/L Low 136-145 [facility] Comment on above: Performed By: #### L [id number] ####Escort Vehicle Driver: BROOKE RINCON ([id number])[facility])[address] [place] [address] [place] Urea nitrogen [Mass/Vol] 44 mg/dL High 9-23 [facility] Comment on above: Performed By: #### L [id number] ####Escort Vehicle Driver: BROOKE RINCON ([id number])[facility])[address] [place] [address] [place] COVID-19, Flu A/B, and RSV C omboon 01-26-2025 Interpretation and review of laboratory results Normal [facility] CRP [Mass/Vol]on 01-26-2025 Interpretation and review of laboratory results Abnormal [facility] CT ABDOMEN PELVIS W CONTRAST on 01-26-2025 CT ABDOMEN PELVIS W CONTRAST Normal [facility] CT Abdomen and Pelvis W cont rast Quin 01-26-2025 No acute findings are seen on this examination to explain the patient's pain. Report Dictated on Electronically Signed By: Herman Hein MD Electronically Signed Date/Time: 01/26/2025 1:41 AM EDT [facility] [employer] SYSTEM Patient Name: HANNA NELSON : 1940 [...] right hip. This is not fully imaged. [facility] Herman Hein MD - 01/26/2025 Patient [...] Electronically Signed Date/Time: 01/26/2025 1:41 AM EDT [facility] Radiology Study observation (narrative) [facility] CT Abdomen and Pelvis W cont rast IVOrdered By: Herman Hein on 01-26-2025 [facility] CULTURE ANAEROBICon 01-27-20 25 CULTURE ANAEROBIC Normal [facility] Comment on above: Performed By: #### L [id number] ####Escort Vehicle Driver: BROOKE RINCON ([id number])[facility])[address] [place] [address] CULTURE ANAEROBIC Normal [facility] Comment on above: Performed By: #### L [id number] ####Escort Vehicle Driver: BROOKE RINCON ([id number])[facility])[address] [place] [address] CULTURE, AEROBIC BACTERIA WI TH GRAM STAINon 01-26-2025 CULTURE, AEROBIC BACTERIA WITH GRAM STAIN Normal [facility] Comment on above: Performed By: #### L [id number] ####Escort Vehicle Driver: BROOKE RINCON ([id number])[facility])[address] [place] [address] CULTURE, AEROBIC BACTERIA WITH GRAM STAIN Normal [facility] Comment on above: Performed By: #### L [id number] ####Escort Vehicle Driver: BROOKE RINCON ([id number])[facility] ([address] Comprehensive metabolic 1998 panelon 01-26-2025 Albumin [Mass/Vol] 3.1 g/dL Low 3.4 - 4.8 g/dL [facility] ALP [Catalytic activity/Vol] 40 U/L 40 - 150 U/L [facility] ALT [Catalytic activity/Vol] 11 U/L NINF - 30 U/L [facility] Anion gap [Moles/Vol] 9 mmol/L 3 - 13 mmol/L [facility] AST [Catalytic activity/Vol] 17 U/L NINF - 34 U/L [facility] Bilirubin [Mass/Vol] 0.4 mg/dL NINF - 1.2 mg/dL [facility] Calcium [Mass/Vol] 8.7 mg/dL Low 8.8 - 10. 0 mg/dL [facility] Chloride [Moles/Vol] 107 mmol/L 98 - 10 7 mmol/L [facility] CO2 [Moles/Vol] 19 mmol/L Low 23 - 31 mmol/L [facility] Creatinine [Mass/Vol] 1.44 mg/dL High 0.57 - 1.11 mg/dL [facility] GFR/1.73 sq M.predicted (S/P/Bld) [Vol rate/Area] 35.7 mL/min Low - PINF [facility] Comment on above: Calculation based on the Chronic Kidney Disease Epidemiology Collaboration (CKD-EPI) equation refit without adjustment for race Glucose [Mass/Vol] 250 mg/dL High 82 - 115 mg/dL [facility] Interpretation and review of laboratory results Abnormal [facility] Potassium [Moles/Vol] 4.5 mmol/L 3.5 - 5.1 mmol/L [facility] Comment on above: Plasma potassium ashley ues may be up to 0.5 mmol/L lower than serum values. Protein [Mass/Vol] 6.4 g/dL 6.4 - 8.3 g/dL [facility] Sodium [Moles/Vol] 135 mmol/L Low 136 - 145 mmol/L [facility] Urea nitrogen [Mass/Vol] 44 mg/dL High 9 - 23 mg/dL [facility] Consulton 01-26-2025 Consult Normal [facility] ECG 12-LEADon 01-26-2025 ECG 12-LEAD IMPRESSION: Atrial fibrillation with rapid V-rate Left axis deviation Electronically Signed On 01-26-2025 01:16:19 EDT by Marcela Conley [facility] ED Nursing Noteon 01-26-2025 ED Nursing Note Dimitris Rae arriv ed for transport. Hand off report given to medic. Normal [facility] ED Nursing Note Report Called to Matt sebastian RN 5W [facility]. [facility] ESR (Bld) [Velocity]Ordered By: Antoinette Giang on 01-26-2025 Interpretation and review of laboratory results Normal [facility] Free T3 [Mass/Vol]on 025 Interpretation and review of laboratory results [facility] HIGH SENSITIVITY TROPONIN, S ERIAL, SECOND TESTon 01-26-2025 2H TROPONIN HS (SERIAL 2ND TROPONIN) 18 ng/L High <=14 [facility] Comment on above: Result Comment: 2h t [...] 3rd serial troponin Performed By: #### L [id number] ####Escort Vehicle Driver: BROOKE RINCON ([id number])[facility] ([address] HIGH SENSITIVITY TROPONIN, S ERIAL, THIRD TESTon 01-26-2025 4H TROPONIN HS (SERIAL 3RD TROPONIN) 24 ng/L High <=14 [facility] Comment on above: Result Comment: 4h [...] further evaluation. Performed By: #### L [id number], [id number] ####Escort Vehicle Driver: BROOKE RINCON ([id number])[facility]ITALRODOLFO OSMINTMAN (SWRLAB)[address] [place] [address] LACTIC ACID WITH REFLEXon Lactate [Moles/Vol] 1.8 mmol/L Normal 0.5-2.2 [facility] Comment on above: Performed By: #### L [id number] ####Escort Vehicle Driver: BROOKE RINCON ([id number])[facility] OSMINTMAN (SWRLAB)[address] [place] [address] Lactate [Moles/Vol] 2.6 mmol/L High 0.5-2.2 [facility] Comment on above: Performed By: #### L [id number] ####Escort Vehicle Driver: BROOKE RINCON ([id number])[facility] Sylvan SourceAN (SWRLAB)[address] [place] [address] Laboratory - Chemistry and C hemistry - challengeon 01-26-2025 Glucose [Mass/Vol] 288 mg/dL High 70 - 100 mg/dL [facility] Glucose [Mass/Vol] 269 mg/dL High 70 - 100 mg/dL [facility] CRP [Mass/Vol] 95.4 mg/L High NINF - 5.0 mg/L [facility] Glucose [Mass/Vol] 252 mg/dL High 70 - 100 mg/dL [facility] Glucose [Mass/Vol] 245 mg/dL High 70 - 100 mg/dL [facility] Lactate [Moles/Vol] 1.8 mmol/L 0.5 - 2. 2 mmol/L [facility] Lactate [Moles/Vol] 2.6 mmol/L High 0.5 - 2. 2 mmol/L [facility] Free T3 [Mass/Vol] 2.25 pg/mL 1.58 - 3.91 pg/mL [facility] Laboratory - Coagulationon 0 01-26-2025 PT Coag (Bld) [Time] 12.7 s High 9.0 - 1 2.0 s [facility] Laboratory - Hematology and Cell countsOrdered By: Antoinette Giang on 01-26-2025 ESR (Bld) [Velocity] 17 mm/h [facility] - Microbiology an d Antimicrobial susceptibilityon 01-26-2025 FLUAV RNA ROBERT+probe Ql (Resp) Not detected Not Detected [facility] FLUBV RNA ROBERT+probe Ql (Resp) Not detected Not Detected [facility] RSV RNA ROBERT+probe Ql (Resp) Not detected Not Detected [facility] SARS-CoV-2 (COVID-19) RNA ROBERT+probe Ql (Resp) Not detected Not Detected [facility] SARS-CoV-2 (COVID-19) RNA ROBERT+probe Ql (Unsp spec) Methodology: real-time, RT-PCR The SARS-CoV-2, Flu A/B, and RSV Combo assay is intended for in vitro diagnostic use under the FDA Emergency Use Authorization (EUA). This test has not been FDA cleared or approved. In compliance with this authorization, please visit www.fda.gov/media/724640/do wnload or www.fda.gov/media/453588/do wnload to access the applicable information sheets. [facility] MR Foot - right WO and W con trast Quin 01-26-2025 Radiology Study observation (narrative) [facility] No Panel Informationon 01-26 Interpretation and review of laboratory results Abnormal [facility] Performed by: [address] [address] CLIA ID: [id number] [facility] Interpretation and review of laboratory results Abnormal [facility] Performed by: [address] [address] CLIA ID: [id number] [facility] Interpretation and review of laboratory results Abnormal [facility] Performed by: [address] [address] CLIA ID: [id number] [facility] Interpretation and review of laboratory results Abnormal [facility] Performed by: [address] [address] CLIA ID: [id number] [facility] 4h Troponin HS (Serial 3rd Troponin) 24 ng/L High NINF - 14 ng/L [facility] Comment on above: 4h troponin (3rd tro ponin) samples collected between 1h 40 min and 2h and 20 min of the 2h troponin collection time can be utilized to interpret delta troponins as per [facility] algorithms. Samples collected outside this timeframe need to be interpreted clinically. Rising or falling troponin delta between 2 15 ng/L as compared to 2h troponin value requires further evaluation. Interpretation and review of laboratory results Abnormal [facility] Interpretation and review of laboratory results Normal [facility] Interpretation and review of laboratory results Abnormal [facility] 2h Troponin HS (Serial 2nd Troponin) 18 ng/L High NINF - 14 ng/L [facility] Comment on above: 2h troponin (2nd tro ponin) samples collected between 1h 40 min and 2h and 20 min of the baseline collection time can be utilized to interpret delta troponins as per [facility] algorithms. Samples collected outside this timeframe need to be interpreted clinically. Rising or falling troponin delta between 2 15 ng/L as compared to baseline value requires a 3rd serial troponin Interpretation and review of laboratory results Abnormal [facility] P Eastman 0 degrees [facility] NV Interval 0 ms [facility] QRS Eastman -30 degrees [facility] QRSD Interval 92 ms [facility] QT Interval 276 ms [facility] QTC Interval 439 ms [facility] T Wave [place]man 68 degrees [facility] Atrial fibrillation with rapid V-rate Left axis deviation Electronically Signed On 01-26-2025 01:16:19 EDT by Marcela Conley Sanjuanita Gallagher MD - 01/26/2025 IMPRESSION: Atrial fibrillation with rapid V-rate Left axis deviation Electronically Signed On 01-26-2025 01:16:19 EDT by Marcela Conley [facility] Interpretation and review of laboratory results Normal [facility] Troponin HS Serial Baseline 10 ng/L NINF - 14 ng/L [facility] Comment on above: In individuals prese nting with symptoms > 2h, a baseline troponin <= 5 ng/L suggests acute cardiac injury is unlikely and further serial testing is generally not indicated. [facility] Nursing Noteon 01-26-2025 [facility] call light in reach, bed low and locked, made aware of pt admit and pt daughter was called to inform her of pt move Normal [facility] PROTHROMBIN TIMEon INR Coag (PPP) [Relative time] 1.2 {INR} High 0.9-1.1 [facility] Comment on above: Result Comment: Channing [...] Myocardial Infarction Performed By: #### L [id number] ####Escort Vehicle Driver: BROOKE RINCON ([id number])[address] PT Coag (PPP) [Time] 12.7 s High 9.0-12.0 [facility] Comment on above: Performed By: #### L [id number] ####Escort Vehicle Driver: BROOKE RINCON ([id number])[facility] ([facility])[address] [place] [address] PT Coag (Bld) [Time]on 01-26 INR Coag (PPP) [Relative time] 1.2 {INR} High 0.9 - 1.1 [facility] Comment on above: Recommended Anticoag ulant Therapy: [...] and review of laboratory results Abnormal [facility] Progress Noteon 01-26-2025 Progress Note Normal [facility] Progress Note Normal [facility] SARS-COV-2, FLU A/B, AND RSV COMBOon 01-26-2025 SARS-CoV-2 (COVID-19) RNA ROBERT+probe Ql (Unsp spec) Normal [facility] Comment on above: Performed By: #### L [id number] ####Escort Vehicle Driver: BROOKE RINCON ([id number])[facility] GARCIA (SWRLAB)[address] SEDIMENTATION RATE, AUTOMATE Don 01-26-2025 SEDIMENTATION RATE, ERYTHROCYTE 17 mm/hr Normal 0-20 [facility] [employer] [facility] Comment on above: Performed By: #### L [id number] ####Escort Vehicle Driver: BROOKE RINCON ([id number])[facility] ([facility])[address] [place] [address] URINE CULTUREon 01-26-2025 Bacteria identified Cx Nom (U) Normal [facility] Comment on above: Performed By: #### L [id number] ####Escort Vehicle Driver: BROOKE RINCON ([id number])[facility] ([facility])[address] [place] [address] [place] Lower extremity arteryOrd ered By: Lucy Flanagan on 01-26-2025 Left RIKA 1.08 [facility] [employer] Work Phone: Left arm BP 121 mmHg [facility] [employer] Work Phone: Left dorsalis pedis BP 131 mmHg [facility] Work Phone: Left posterior tibial 112 mmHg [facility] Work Phone: Right RIKA 1.11 [facility] [employer] Work Phone: Right arm BP 108 mmHg [facility] [employer] Work Phone: Right dorsalis pedis BP 133 mmHg [facility] [employer] Work Phone: Right posterior tibial 134 mmHg [facility] Work Phone: Right TBI 0.43 [facility] [employer] Work Phone: Right toe pressure 52 mmHg [facility] [employer] Work Phone: [place] Lower extremity arteryon 01-26-2025 [...] resting TBI. Left side findings: Normal resting IRKA. Right PVR waveforms: Consistent with MODERATE disease [...] the left lower extremity. Study performed by [employer]. Study Details A stephens scale, color Doppler [...] LM.HPF (Urine sed) [#/Area] Negative Negative /HPF [facility] [employer] Bilirubin Ql (U) Negative Negative mg/dL [facility] Health Clarity (U) Clear Clear [facility] Color (U) Colorless Lt. Yellow [facility] Epithelial cells.squamous LM.HPF (Urine sed) [#/Area] 3-5 [facility] Glucose Ql (U) >1,000 Abnormal Normal (<70) mg/dL [facility] Hemoglobin Ql (U) Negative Negative mg/dL [facility] Interpretation and review of laboratory results Abnormal [facility] Ketones (U) [Mass/Vol] Negative Negat eddie mg/dL [facility] Leukocyte esterase Test strip Ql (U) Negative Negative Baljit/uL [facility] Nitrite Ql (U) Negative Negative [facility] Non-Squamous Epithalial Cells, Urine 3-5 Abnormal Negative /HPF [facility] pH (U) 6.0 [pH] 5.0 - 8.0 pH [facility] Protein (U) [Mass/Vol] 20 mg/dL Abnormal Negative [facility] RBC LM.HPF (Urine sed) [#/Area] 0-2 [facility] Specific gravity (U) [Rel density] 1.013 1.005 - 1.030 [facility] Urobilinogen (U) [Mass/Vol] Normal Normal (0-1) mg/dL [facility] Volume, Urine 12 mL [facility] WBC LM.HPF (Urine sed) [#/Area] 3-5 [facility] A specimen with <=10 WBC is not consistent with inflammation. This specimen will not reflex to a urine culture. [facility] Vital signson 01-26-2025 Heart rate 152 /min bpm [facility] XR Chest Single viewon 01-26 Coarsening of the interstitial lung markings is likely chronic. No focal consolidation is identified. Report Dictated on Electronically Signed By: Herman Hein MD Electronically Signed Date/Time: 01/26/2025 1:49 AM [facility] Patient Name: [...] are degenerative changes of the thoracic spine. 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 Report Dictated on Electronically Signed By: Don Ceballos MD Electronically Signed Date/Time: 01/26/2025 3:41 PM EDT [facility] Patient Name: HANNA NELSON : 1940 [...] foot. No definitive evidence of cutaneous emphysema. [facility] Don Ceballos MD - 01/26/2025 Patient [...] Electronically Signed Date/Time: 01/26/2025 3:41 PM EDT [facility] Radiology Study observation (narrative) [facility] XR Foot - right 3 ViewsOrder ed By: Don Ceballos on 01-26-2025 [employer] Work Phone: XR Orbit Views for foreign b odyon 01-26-2025 No metallic foreign body or electronic device to contraindicate MRI. Report Dictated on Electronically Signed By: Bucky Kitchen MD Electronically Signed Date/Time: 01/26/2025 2:19 PM EDT [facility] Patient Name: HANNA NELSON : 1940 [...] fillings. Degenerative changes of the cervical spine. [facility] Bucky Kitchen MD - 01/26/2025 Patient Name: [...] Electronically Signed Date/Time: 01/26/2025 2:19 PM EDT [facility] [employer] Radiology Study observation (narrative) [facility] [employer] XR Orbit Views for foreign b odyOrdered By: Bucky Kitchen on 01-26-2025 [employer] Work Phone: BASIC METABOLIC PANELon 06- Anion gap [Moles/Vol] 12 mmol/L Normal 3-13 [facility] Comment on above: Performed By: #### L [id number] ####Escort Vehicle Driver: BROOKE RINCON ([phone])[facility]ENTERJul[facility] REYNOLDS RITTMAN (SWRLAB)[address] [place] [address] [place] Calcium [Mass/Vol] 9.4 mg/dL Normal 8.8-10.0 [facility] Comment on above: Performed By: #### L AB15 ####Escort Vehicle Driver: BROOKE RINCON ([phone])[facility] CENTERJuliana MEADRODOLFO RITTMAN (SWRLAB)[address] Chloride [Moles/Vol] 105 mmol/L Normal 98-107 [facility] Comment on above: Performed By: #### L AB15 ####Escort Vehicle Driver: BROOKE RINCON ([phone])[facility]ENTERJuliana MEADRODOLFO RITTMAN (SWRLAB)[address] [place] [address] [place] CO2 [Moles/Vol] 22 mmol/L Low 23-31 [facility] Comment on above: Performed By: #### L AB15 ####Escort Vehicle Driver: BROOKE RINCON ([phone])[facility]ENTERJuliana REYNOLDS RITTMAN (SWRLAB)[address] [place] [address] [place] Creatinine [Mass/Vol] 1.45 mg/dL High 0.57-1.11 [facility] Comment on above: Performed By: #### L AB15 ####Escort Vehicle Driver: BROOKE RINCON ([phone])[facility]ENTERJuliana REYNOLDS RITTMAN (SWRLAB)[address] [place] [address] [place] GLOMERULAR FILTRATION RATE ML/MIN/1.73 SQ M.PREDICTED 35.4 mL/min/1.73m*2 Low >60.0 [facility] Comment on above: Result Comment: Calc ulation based on the Chronic Kidney Disease Epidemiology Collaboration (CKD-EPI) equation refit without adjustment for race Performed By: #### L AB15 ####Escort Vehicle Driver: BROOKE RINCON ([phone])[facility]ENTERJuliana SOLORIOTMAN (SWRLAB)[address] Glucose [Mass/Vol] 351 mg/dL High 82-115 [facility] Comment on above: Performed By: #### L AB15 ####Escort Vehicle Driver: BROOKE RINCON ([phone])[facility]ENTERJuliana SOLORIOTMAN (SWRLAB)[address] Potassium [Moles/Vol] 4.6 mmol/L Normal 3.5-5.1 [facility] Comment on above: Result Comment: [facility] potassium values may be up to 0.5 mmol/L lower than serum values. Performed By: #### L AB15 ####Escort Vehicle Driver: BROOKE RINCON ([phone])[facility]ENTERJuliana SOLORIOTMAN (SWRLAB)[address] [place] [address] Sodium [Moles/Vol] 139 mmol/L Normal 136-145 [facility] Comment on above: Performed By: #### L AB15 ####Escort Vehicle Driver: BROOKE RINCON ([phone])[facility]ENTERJuliana SOLORIOTMAN (SWRLAB)[address] [place] [address] Urea nitrogen [Mass/Vol] 43 mg/dL High 9-23 [facility] Comment on above: Performed By: #### L AB15 ####Escort Vehicle Driver: BROOKE RINCON ([phone])[facility]ENTERJuliana SOLORIOTMAN (SWRLAB)[address] [place] [address] Basic metabolic 1998 panelon 01-25-2025 Anion gap [Moles/Vol] 12 mmol/L 3 - 13 mmol/L [facility] Calcium [Mass/Vol] 9.4 mg/dL 8.8 - 10. 0 mg/dL [facility] Chloride [Moles/Vol] 105 mmol/L 98 - 10 7 mmol/L [facility] CO2 [Moles/Vol] 22 mmol/L Low 23 - 31 mmol/L [facility] Creatinine [Mass/Vol] 1.45 mg/dL High 0.57 - 1.11 mg/dL [facility] GFR/1.73 sq M.predicted (S/P/Bld) [Vol rate/Area] 35.4 mL/min Low - PINF [facility] Comment on above: Calculation based on the Chronic Kidney Disease Epidemiology Collaboration (CKD-EPI) equation refit without adjustment for race Glucose [Mass/Vol] 351 mg/dL High 82 - 115 mg/dL [facility] Interpretation and review of laboratory results Abnormal [facility] Potassium [Moles/Vol] 4.6 mmol/L 3.5 - 5.1 mmol/L [facility] Comment on above: Plasma potassium ashley ues may be up to 0.5 mmol/L lower than serum values. Sodium [Moles/Vol] 139 mmol/L 136 - 145 mmol/L [facility] Urea nitrogen [Mass/Vol] 43 mg/dL High 9 - 23 mg/dL [facility] CBC W Auto Differential pane l (Bld)Ordered By: Keisha Aaron on 01-25-2025 Erythrocyte distribution width (RBC) [Ratio] 14.2 % 11.5 - 15.0 % [facility] Hematocrit (Bld) [Volume fraction] 38.6 % 35.0 - 47.0 % [facility] Hemoglobin (Bld) [Mass/Vol] 12.8 g/dL 11.7 - 16.0 g/dL [facility] MCH (RBC) [Entitic mass] 30.3 pg 26.0 - 34.0 pg [facility] MCHC (RBC) [Mass/Vol] 33.2 % 30.5 - 36.0 % [facility] MCV (RBC) [Entitic vol] 91.5 fL 77.0 - 99.0 fL [facility] Nucleated RBC/100 WBC (Bld) [Ratio] 0 % [facility] Platelet mean volume (Bld) [Entitic vol] 10.8 fL 9.0 - 12.7 fL [facility] Comment on above: MPV is a calculated measurement using platelet volume ratio Platelets (Bld) [#/Vol] 244 10*3/uL 140 - 440 10*3/uL [facility] RBC (Bld) [#/Vol] 4.22 10*6/uL 3.80 - 5.20 10*6/uL [facility] WBC (Bld) [#/Vol] 27 10*3/uL High 3.6 - 10.7 10*3/uL [facility] CBC WITH AUTO DIFFERENTIALon 01-25-2025 Erythrocyte distribution width (RBC) [Ratio] 14.2 % Normal 11.5-15.0 [facility] Comment on above: Performed By: #### L [id number], [id number] ####Escort Vehicle Driver: BROOKE RINCON ([phone])[facility]ENTERJuliana REYNOLDS RITTMAN (SWRLAB)[address] [place] [address] Hematocrit (Bld) [Volume fraction] 38.6 % Normal 35.0-47.0 [facility] Comment on above: Performed By: #### L [id number], [id number] ####Escort Vehicle Driver: BROOKE RINCON ([id number])[facility]ENTERJuliana REYNOLDS RITTMAN (SWRLAB)[address] [place] [address] Hemoglobin (Bld) [Mass/Vol] 12.8 g/dL Normal 11.7-16.0 [facility] Comment on above: Performed By: #### Jaz [id number], [id number] ####Escort Vehicle Driver: BROOKE RINCON ([id number])[facility]ENTERJuliana REYNOLDS RITTMAN (SWRLAB)[address] [place] [address] MCH (RBC) [Entitic mass] 30.3 pg Normal 26.0-34.0 [facility] Comment on above: Performed By: #### L [id number], [id number] ####Escort Vehicle Driver: BROOKE RINCON ([phone])[facility]ENTERJuliana REYNOLDS RITTMAN (SWRLAB)[address] [place] [address] MCHC 33.2 % Normal 30.5-36.0 [facility] Comment on above: Performed By: #### L [id number], [id number] ####Escort Vehicle Driver: BROOKE RINCON ([phone])[facility]ENTERJuliana REYNOLDS RITTMAN (SWRLAB)[address] [place] [address] MCV (RBC) [Entitic vol] 91.5 fL Normal 77.0-99.0 [facility] Comment on above: Performed By: #### L [id number], [id number] ####Escort Vehicle Driver: BROOKE RINCON ([phone])[facility]ENTERJuliana SOLORIOTMAN (SWRLAB)[address] [place] [address] NRBC 0.0 /100 WBCs Normal 0.0-2.0 [facility] Comment on above: Performed By: #### Jaz [id number], [id number] ####Escort Vehicle Driver: BROOKE RINCON ([id number])[facility]ENTERJuliana SOLORIOTMAN (SWRLAB)[address] [place] [address] Platelet mean volume (Bld) [Entitic vol] 10.8 fL Normal 9.0-12.7 [facility] Comment on above: Result Comment: MPV is a calculated measurement using platelet volume ratio Performed By: #### Jaz HEBERT, [id number] ####Escort Vehicle Driver: BROOKE RINCON ([phone])[facility]ENTERJuliana SOLORIOTMAN (SWRLAB)[address] [place] [address] [place] Platelets (Bld) [#/Vol] 244 10*3/uL Normal 140-440 [facility] Comment on above: Performed By: #### Jaz [id number], [id number] ####Escort Vehicle Driver: BROOKE RINCON ([id number])[facility]ENTERJuliana SOLORIOTMAN (SWRLAB)[address] [place] [address] [place] RBC (Bld) [#/Vol] 4.22 10*6/uL Normal 3.80-5.20 [facility] Comment on above: Performed By: #### L [id number], [id number] ####Escort Vehicle Driver: BROOKE RINCON ([id number])[facility]ENTERJuliana REYNOLDS RITTMAN (SWRLAB)[address] [place] [address] WBC (Bld) [#/Vol] 27.0 10*3/uL High 3.6-10.7 [facility] Comment on above: Performed By: #### Jaz [id number], [id number] ####Escort Vehicle Driver: BROOKE RINCON ([phone])[facility]ENTERJuliana GARCIA (SWRLAB)[address] [place] [address] ED Nursing Noteon 01-25-2025 ED Nursing Note The patient came in via ambulance. She is complaining of generally not feeling well. Per family the patient had elevated bp, hr, blood sugar. Generalized weakness, difficulty ambulating to the bathroom. Difficulty with being able to care for herself. Normal [facility] ED Provider Noteon ED Provider Note Normal [facility] FREE T4on 01-25-2025 Free T4 [Mass/Vol] 1.20 ng/dL Normal 0.70-1.48 [facility] Comment on above: Performed By: #### L [id number], [id number] ####Escort Vehicle Driver: BROOKE RINCON ([phone])[facility] HOSPITALRODOLFORANDY GARCIA (SWRLAB)[address] [place] [address] Free T4 [Mass/Vol]on 025 Free T4 Dialysis [Mass/Vol] 1.2 ng/dL 0.70 - 1.48 ng/dL [facility] HIGH SENSITIVITY TROPONIN, S ERIAL BASELINEon 01-25-2025 TROPONIN HS SERIAL BASELINE 10 ng/L Normal <=14 [facility] Comment on above: Result Comment: In i ndividuals presenting with symptoms > 2h, a baseline troponin <= 5 ng/L suggests acutecardiac injury is unlikely and further serial testing is generally not indicated. Performed By: #### L [id number] ####Escort Vehicle Driver: BROOKE RINCON ([phone])[facility] RODOLFO GARCIA (SWRLAB)[address] [place] [address] Laboratory - Chemistry and C hemistry - challengeon 01-25-2025 TSH Qn 1.44 m[IU]/L [facility] Glucose [Mass/Vol] 345 mg/dL High 70 - 100 mg/dL [facility] MANUAL DIFFERENTIALon 2024 BASOPHILS (10*3/UL) IN BLOOD BY MANUAL COUNT 0.0 10*3/uL Normal 0.0-0.2 [facility] Comment on above: Performed By: #### L [id number], [id number] ####Escort Vehicle Driver: BROOKE RINCON ([phone])[facility] [place] RITTMAN (SWRLAB)[address] [place] [address] [place] BASOPHILS TOTAL PER COUNTED LEUKOCYTES BY MANUAL COUNT 0 Normal [facility] Comment on above: Performed By: #### L [id number], [id number] ####Escort Vehicle Driver: BROOKE RINCON ([phone])[facility]ENTERA RODOLFO RITTMAN (SWRLAB)[address] [place] [address] [place] BASOPHILS/100 LEUKOCYTES IN BLOOD BY MANUAL COUNT 0 % Normal 0-2 [facility] Comment on above: Performed By: #### L [id number], [id number] ####Escort Vehicle Driver: BROOKE RINCON ([phone])[facility] RODOLFO RITTMAN (SWRLAB)[address] [place] [address] [place] CELLS COUNTED TOTAL (#) IN BLOOD 100 Normal [facility] Comment on above: Performed By: #### L [id number], [id number] ####Escort Vehicle Driver: BROOKE RINOCN ([id number])[facility]ENTERA RODOLFO RITTMAN (SWRLAB)[address] [place] [address] [place] DIFFERENTIAL METHOD Automated differenti al reported after manual slide review Normal [facility] Comment on above: Performed By: #### L [id number], [id number] ####Escort Vehicle Driver: BROOKE RINCON ([id number])[facility]ENTERA RODOLFO RITTMAN (SWRLAB)[address] [place] [address] [place] EOSINOPHILS (10*3/UL) IN BLOOD BY MANUAL COUNT 0.0 10*3/uL Normal 0.0-0.5 [facility] Comment on above: Performed By: #### L [id number], [id number] ####Escort Vehicle Driver: BROOKE RINCON ([id number])[facility] [place] R[place]TMAN (SWRLAB)[address] [place] [address] [place] EOSINOPHILS TOTAL PER COUNTED LEUKOCYTES BY MANUAL COUNT 0 Normal 0-1 [facility] Comment on above: Performed By: #### L [id number], [id number] ####Escort Vehicle Driver: BROOKE RINCON ([phone])[facility] R[place]FO RITTMAN (SWRLAB)[address] [place] [address] [place] EOSINOPHILS/100 LEUKOCYTES IN BLOOD BY MANUAL COUNT 0 % Normal 0-6 [facility] Comment on above: Performed By: #### L [id number], [id number] ####Escort Vehicle Driver: BROOKE RINCON ([phone])[facility]ENTERA RODOLFO RITTMAN (SWRLAB)[address] [place] [address] [place] LEUKOCYTES (10*3/UL) NUCLEATED ERYTHROCYTE ADJUST 27.0 10*3/uL High 3.6-10.7 [facility] Comment on above: Performed By: #### L [id number], [id number] ####Escort Vehicle Driver: BROOKE RINCON ([phone])[facility]ENTERA RODOLFO RITTMAN (SWRLAB)[address] [place], [place] [address] [place] LYMPHOCYTES (10*3/UL) IN BLOOD BY MANUAL COUNT 0.8 10*3/uL Low 1.0-4.3 [facility] Comment on above: Performed By: #### L [id number], [id number] ####Escort Vehicle Driver: BROOKE RINCON ([phone])[facility] RODOLFO RITTMAN (SWRLAB)[address] [place], [place] [address] [place] LYMPHOCYTES TOTAL PER COUNTED LEUKOCYTES BY MANUAL COUNT 3 Normal [facility] Comment on above: Performed By: #### L [id number], [id number] ####Escort Vehicle Driver: BROOKE RINCON ([phone])[facility]ENTERA RODOLFO RITTMAN (SWRLAB)[address] [place] [address] [place] LYMPHOCYTES/100 LEUKOCYTES IN BLOOD BY MANUAL COUNT 3 % Low 15-45 [facility] Comment on above: Performed By: #### L [id number], [id number] ####Escort Vehicle Driver: BROOKE RINCON ([phone])[facility]ENTERA RODOLFO RITTMAN (SWRLAB)[address] [place] [address] [place] MONOCYTES (10*3/UL) IN BLOOD BY MANUAL COUNT 1.9 10*3/uL High 0.0-0.9 [facility] Comment on above: Performed By: #### L [id number], [id number] ####Escort Vehicle Driver: BROOKE RINCON ([phone])[facility]A RODOLFO RITTMAN (SWRLAB)[address] [place] [address] [place] MONOCYTES TOTAL PER COUNTED LEUKOCYTES BY MANUAL COUNT 7 Normal [facility] Comment on above: Performed By: #### L [id number], [id number] ####Escort Vehicle Driver: BROOKE RINCON ([id number])[facility]A RODOLFO RITTMAN (SWRLAB)[address] [place] [address] [place] MONOCYTES/100 LEUKOCYTES IN BLOOD BY MANUAL COUNT 7 % Normal 5-13 [facility] Comment on above: Performed By: #### L [id number], [id number] ####Escort Vehicle Driver: BROOKE RINCON ([phone])[facility]A RODOLFO RITTMAN (SWRLAB)[address] [place] [address] [place] NEUTROPHILS (SEGS+BANDS) (10*3/UL) BY MANUAL COUNT 24.0 10*3/uL High 1.8-7.0 [facility] Comment on above: Performed By: #### L [id number], [id number] ####Escort Vehicle Driver: BROOKE RINCON ([phone])[facility]A RODOLFO RITTMAN (SWRLAB)[address] [place] [address] [place] NEUTROPHILS TOTAL PER COUNTED LEUKOCYTES BY MANUAL COUNT 89 Normal [facility] Comment on above: Performed By: #### L [id number], [id number] ####Escort Vehicle Driver: BROOKE RINCON ([phone])[facility]A RODOLFO RITTMAN (SWRLAB)[address] [place] [address] [place] PLATELET MORPHOLOGY IN BLOOD Normal Normal [facility] Comment on above: Performed By: #### L [id number], [id number] ####Escort Vehicle Driver: BROOKE RINCON ([phone])[facility]A RODOLFO RITTMAN (SWRLAB)[address] [place] [address] [place] RBC MORPHOLOGY IN BLOOD Normal Normal [facility] Comment on above: Performed By: #### L [id number], [id number] ####Escort Vehicle Driver: BROOKE RINCON ([phone])[facility]ENTERJuliana REYNOLDS RITTMAN (SWRLAB)[address] [place] [address] [place] SEGEMENTED NEUTROPHILS/100 LEUKOCYTES BY MANUAL COUNT 89 % High 38-82 [facility] Comment on above: Performed By: #### L [id number], [id number] ####Escort Vehicle Driver: BROOKE RINCON ([phone])[facility]ENTERJuliana REYNOLDS RITTMAN (SWRLAB)[address] [place] [address] TOXIC GRANULES PRESENCE IN BLOOD BY LIGHT MICROSCOPY (PRESENT) Present Abnormal (none) [facility] Comment on above: Performed By: #### L [id number], [id number] ####Escort Vehicle Driver: BROOKE RINCON ([phone])[facility]ENTERJul[facility] REYNOLDS RITTMAN (SWRLAB)[address] [place] [address] [place] UNCLASSIFIED CELLS (10*3/UL) IN BLOOD BY MANUAL COUNT 0.3 10*3/uL Normal [facility] Comment on above: Performed By: #### L [id number], [id number] ####Escort Vehicle Driver: BROOKE RINCON ([phone])[facility]ENTERJul[facility] REYNOLDS RITTMAN (SWRLAB)[address] [place] [address] [place] UNCLASSIFIED CELLS/100 LEUKOCYTES IN BLOOD 1.00 % Normal [facility] Comment on above: Performed By: #### L [id number], [id number] ####Escort Vehicle Driver: BROOKE RINCON ([phone])[facility]ENTERJuliana REYNOLDS RITTMAN (SWRLAB)[address] [place] [address] [place] Manual differential performe d Ql (Bld)on 01-25-2025 Basophils (Bld) [#/Vol] 0 10*3/uL 0.0 - 0.2 10*3/uL [facility] Basophils Manual 0 [facility] Basophils/100 WBC (Bld) 0 % 0 - 2 % [facility] Cells Counted Total (Bld) [#] 100 {cells} [facility] [employer] Differential Method Automated differenti al reported after manual slide review [facility] Eosinophils (Bld) [#/Vol] 0 10*3/uL 0.0 - 0.5 10*3/uL [facility] [employer] Eosinophils Manual 0 0 - 1 [facility] Eosinophils/100 WBC (Bld) 0 % 0 - 6 % [facility] Lymphocytes (Bld) [#/Vol] 0.8 10*3/uL Low 1.0 - 4.3 10*3/uL [facility] Lymphocytes Manual 3 [facility] Lymphocytes/100 WBC (Bld) 3 % Low 15 - 45 % [facility] Monocytes (Bld) [#/Vol] 1.9 10*3/uL High 0.0 - 0.9 10*3/uL [facility] Monocytes Manual 7 [facility] Monocytes/100 WBC (Bld) 7 % 5 - 13 % [facility] Neutrophils (Bld) [#/Vol] 24 10*3/uL High 1.8 - 7.0 10*3/uL [facility] Neutrophils Manual 89 [facility] Platelet morphology finding Nom (Bld) Normal [facility] RBC morphology finding Nom (Bld) Normal [facility] Segmented neutrophils/100 WBC (Bld) 89 % High 38 - 82 % [facility] Toxic granules LM Ql (Bld) Present Abnormal (none) [facility] Unclassified Cells % 1 % [facility] Unclassified Cells, Abs. 0.3 10*3/uL [facility] WBC corrected for nucl RBC (Bld) [#/Vol] 27 10*3/uL High 3.6 - 10.7 10*3/uL [facility] No Panel Informationon 01-25 Interpretation and review of laboratory results Normal [facility] Interpretation and review of laboratory results Abnormal [facility] Performed by: Rodrigo Garcia, [address] [place] [address] CLIA ID: [id number] [facility] No Panel InformationOrdered By: Keisha Aaron on 01-25-2025 Interpretation and review of laboratory results Abnormal [facility] T3 FREEon 01-25-2025 Free T3 [Mass/Vol] 2.25 pg/mL Normal 1.58-3.91 [facility] Comment on above: Performed By: #### L [id number] ####Escort Vehicle Driver: MUSHTAQ MAGUIRE ([phone])[facility] CENTERJuliana ABURTOGloria (SBHLAB)[address] [place] [address] THYROID STIMULATING HORMONEo n 01-25-2025 THYROID STIMULATING HORMONE 1.44 uIU/mL Normal 0.35-4.94 [facility] Comment on above: Performed By: #### L [id number], [id number] ####Escort Vehicle Driver: BROOKE RINCON ([phone])[facility]ENTERAMA (SWRLAB)[address] [place] [address] 37on 01-12-2025 37 Normal [facility] No Panel Informationon 01-12 Jennifer Waldrop [...] provider verified the correct patient, procedure, equipment, manager client support, and site/side marked as required. Debridement Details [...] Response to treatment: procedure was tolerated well [facility] Progress Noteon 01-12-[address] [facility] 2901-05-2025 29 Encounter addended b y: Chiqui Davidson on: 01/05/2025 10:34 AM Actions taken: Flowsheet accepted [facility] 3701-05-2025 37 Normal [facility] No Panel Informationon 01-05 Jennifer Waldrop DPM [...] provider verified the correct patient, procedure, equipment, manager client support, and site/side marked as required. Debridement Details [...] Response to treatment: procedure was tolerated well [facility] Progress Noteon 01-05-[address] [facility] 3601-01-2025 36 Normal [facility] 3712-29-[address] [facility] No Panel Informationon 12-29 Jennifer Waldrop DPM 11:22 AM Debridement Wound/Incision 09/18/24 Diabetic Ulcer Foot Right Performed by: Jennifer Waldrop DPM Authorized by: Jennifer Jourdan, DPM Consent Consent obtained? verbal Consent given by: patient Risks discussed? procedural risks discussed Time out called at 12/29/2024 11:20 AM Immediately prior to the procedure a time out was called and the performing provider verified the correct patient, procedure, equipment, manager client support, and site/side marked as required. Debridement Details [...] Response to treatment: procedure was tolerated well [facility] Progress Noteon 12-29-[address] [facility] 12-24-2024 36 Good afternoon Tiffany , Can we get this patient resumed on javier 3 plus? I sent an electronic prescription to [facility]. Thanks! [facility] Progress Noteon 12-24-[address] [facility] 3612-16-2024 36 Normal [facility] 3712-11-[address] [facility] No Panel Informationon 12-11 Nallely Alas [...] Response to treatment: procedure was tolerated well [facility] Progress Noteon 12-11-2024 Progress Note Normal [facility] [id number] 12-10-2024 [id number] Patient Choice Patient Name: HANNA NELSON Date of : 1940 Normal [facility] 30on 12-05-2024 30 Normal [facility] Bacteria identified Cx Nom ( U)Ordered By: Kenya Baig on 12-05-2024 Interpretation and review of laboratory results Abnormal [facility] CBC (HEMOGRAM)on 12-05-2024 Erythrocyte distribution width (RBC) [Ratio] 14.1 % Normal 11.5-15.0 [facility] Comment on above: Performed By: #### L [id number] ####Escort Vehicle Driver: MUSHTAQ MAGUIRE ([phone])[facility] ([address] Hematocrit (Bld) [Volume fraction] 33.8 % Low 35.0-47.0 [facility] Comment on above: Performed By: #### L [id number] ####Escort Vehicle Driver: MUSHTAQ MAGUIRE ([id number])[facility] ([facility])[address] [place] [address] Hemoglobin (Bld) [Mass/Vol] 10.5 g/dL Low 11.7-16.0 [facility] Comment on above: Performed By: #### L AB294 ####Escort Vehicle Driver: MUSHTAQ MAGUIRE ([id number])RODRIGO ABURTOGloria (SBHLAB)[address] MCH (RBC) [Entitic mass] 29.5 pg Normal 26.0-34.0 [facility] Comment on above: Performed By: #### L AB294 ####Escort Vehicle Driver: MUSHTAQ MAGUIRE ([id number])[facility]ENTERJuliana MAGALLONMESILLA VALLEY HOSPITALGloria (SBHLAB)[address] MCHC 31.1 % Normal 30.5-36.0 [facility] Comment on above: Performed By: #### L AB294 ####Escort Vehicle Driver: MUSHTAQ MAGUIRE ([id number])[facility]ENTERJuliana ABURTOGloria (SBHLAB)[address] MCV (RBC) [Entitic vol] 94.9 fL Normal 77.0-99.0 [facility] Comment on above: Performed By: #### L AB294 ####Escort Vehicle Driver: MUSHTAQ MAGUIRE ([id number])[facility]ENTERJuliana ABURTOGloria (SBHLAB)[address] Platelet mean volume (Bld) [Entitic vol] 10.6 fL Normal 9.0-12.7 [facility] Comment on above: Performed By: #### L AB294 ####Escort Vehicle Driver: MUSHTAQ MAGUIRE ([id number])[facility]ENTERJuliana MAGALLONSHEBAN (SBHLAB)[address] [place] [address] [place] Platelets (Bld) [#/Vol] 250 10*3/uL Normal 140-440 [facility] Comment on above: Performed By: #### L AB294 ####Escort Vehicle Driver: MUSHTAQ MAGUIRE ([id number])[facility]ENTERJuliana MAGALLONMESILLA VALLEY HOSPITALN (SBHLAB)[address] RBC (Bld) [#/Vol] 3.56 10*6/uL Low 3.80-5.20 [facility] Comment on above: Performed By: #### L AB294 ####Escort Vehicle Driver: MUSHTAQ MAGUIRE ([id number])[facility] YONIJORGE (SBHLAB)[address] WBC (Bld) [#/Vol] 8.2 10*3/uL Normal 3.6-10.7 [facility] Comment on above: Performed By: #### L AB294 ####Escort Vehicle Driver: MUSHTAQ MAGUIRE ([id number])[facility] YONIJORGE (SBHLAB)[address] CBC panel Auto (Bld)Ordered By: Liss Chappell on 12-05-2024 Erythrocyte distribution width (RBC) [Ratio] 14.1 % 11.5 - 15.0 % [facility] Hematocrit (Bld) [Volume fraction] 33.8 % Low 35.0 - 47.0 % [facility] Hemoglobin (Bld) [Mass/Vol] 10.5 g/dL Low 11.7 - 16.0 g/dL [facility] Interpretation and review of laboratory results Abnormal [facility] MCH (RBC) [Entitic mass] 29.5 pg 26.0 - 34.0 pg [facility] MCHC (RBC) [Mass/Vol] 31.1 % 30.5 - 36.0 % [facility] MCV (RBC) [Entitic vol] 94.9 fL 77.0 - 99.0 fL [facility] Platelet mean volume (Bld) [Entitic vol] 10.6 fL 9.0 - 12.7 fL [facility] Platelets (Bld) [#/Vol] 250 10*3/uL 140 - 440 10*3/uL [facility] RBC (Bld) [#/Vol] 3.56 10*6/uL Low 3.80 - 5.20 10*6/uL [facility] WBC (Bld) [#/Vol] 8.2 10*3/uL 3.6 - 10.7 10*3/uL [facility] COMPREHENSIVE METABOLIC PANE David 12-05-2024 Albumin [Mass/Vol] 3.0 g/dL Low 3.4-4.8 [facility] Comment on above: Performed By: #### L AB103, LAB17 ####Escort Vehicle Driver: MUSHTAQ MAGUIRE ([id number])[facility] (SB[facility]AB)[address] [place] [address] [place] ALP [Catalytic activity/Vol] 44 U/L Normal 40-150 [facility] Comment on above: Performed By: #### L AB103, LAB17 ####Escort Vehicle Driver: MUSHTAQ MAGUIRE ([id number])[facility]ENTERA [place] (SBHLAB)[address] ALT [Catalytic activity/Vol] 15 U/L Normal <30 [facility] Comment on above: Performed By: #### L AB103, LAB17 ####Escort Vehicle Driver: MUSHTAQ MAGUIRE ([id number])[facility]ENTERA [place] (SBHLAB)[address] Anion gap [Moles/Vol] 10 mmol/L Normal 3-13 [facility] Comment on above: Performed By: #### L AB103, LAB17 ####Escort Vehicle Driver: MUSHTAQ MAGUIRE ([id number])[facility]A [place] (SBHLAB)[address] AST [Catalytic activity/Vol] 21 U/L Normal <34 [facility] Comment on above: Performed By: #### L AB103, LAB17 ####Escort Vehicle Driver: MUSHTAQ MAGUIRE ([id number])[facility]A [place] (SBHLAB)[address] Bilirubin [Mass/Vol] 0.3 mg/dL Normal <1.2 [facility] Comment on above: Performed By: #### L AB103, LAB17 ####Escort Vehicle Driver: MUSHTAQ MAGUIRE ([id number])[facility]A [place] (SBHLAB)[address] Calcium [Mass/Vol] 8.5 mg/dL Low 8.8-10.0 [facility] Comment on above: Performed By: #### L AB103, LAB17 ####Escort Vehicle Driver: MUSHTAQ MAGUIRE ([id number])[facility] [place] ([facility])[address] [place] [address] [place] Chloride [Moles/Vol] 112 mmol/L High 98-107 [facility] Comment on above: Performed By: #### L AB103, LAB17 ####Escort Vehicle Driver: MUSHTAQ MAGUIRE ([id number])[facility]ENTERJuliana MAGALLONMESILLA VALLEY HOSPITALN (SB[facility]AB)[address] CO2 [Moles/Vol] 21 mmol/L Low 23-31 [facility] Comment on above: Performed By: #### L AB103, LAB17 ####Escort Vehicle Driver: MUSHTAQ MAGUIRE ([id number])[facility] CENTERJuliana [place] (SBHLAB)[address] Creatinine [Mass/Vol] 1.40 mg/dL High 0.57-1.11 [facility] Comment on above: Performed By: #### L AB103, LAB17 ####Escort Vehicle Driver: MUSHTAQ MAGUIRE ([id number])[facility]ENTERA [facility] (SB[facility])[address] GLOMERULAR FILTRATION RATE ML/MIN/1.73 SQ M.PREDICTED 36.9 mL/min/1.73m*2 Low >60.0 [facility] Comment on above: Result Comment: Calc ulation based on the Chronic Kidney Disease Epidemiology Collaboration (CKD-EPI) equation refit without adjustment for race Performed By: #### L AB103, LAB17 ####Escort Vehicle Driver: MUSHTAQ MAGUIRE ([id number])[facility]ENTERJuliana BARBMESILLA VALLEY HOSPITALN (SBHLAB)[address] Glucose [Mass/Vol] 239 mg/dL High 82-115 [facility] Comment on above: Performed By: #### L AB103, LAB17 ####Escort Vehicle Driver: MUSHTAQ MAGUIRE ([id number])[facility] (SB[facility])[address] Potassium [Moles/Vol] 4.5 mmol/L Normal 3.5-5.1 [facility] Comment on above: Result Comment: [facility] potassium values may be up to 0.5 mmol/L lower than serum values. Performed By: #### L AB103, LAB17 ####Escort Vehicle Driver: MUSHTAQ MAGUIRE ([id number])[facility]ENTERJuliana [place] (SBHLAB)[address] Protein [Mass/Vol] 6.0 g/dL Low 6.4-8.3 [facility] Comment on above: Performed By: #### L AB103, LAB17 ####Escort Vehicle Driver: MUSHTAQ MAGUIRE ([id number])[facility]ENTERJuliana [place] (SBHLAB)[address] Sodium [Moles/Vol] 143 mmol/L Normal 136-145 [facility] Comment on above: Performed By: #### L AB103, LAB17 ####Escort Vehicle Driver: MUSHTAQ MAGUIRE ([id number])[facility]ENTERJuliana [place] (SBHLAB)[address] Urea nitrogen [Mass/Vol] 47 mg/dL High 9-23 [facility] Comment on above: Performed By: #### L AB103, LAB17 ####Escort Vehicle Driver: MUSHTAQ OMALLEYDIANA ([id number])[facility]ENTERJuliana [place] (SBHLAB)[address] Comprehensive metabolic 1998 panelon 12-05-2024 Albumin [Mass/Vol] 3 g/dL Low 3.4 - 4.8 g/dL [facility] ALP [Catalytic activity/Vol] 44 U/L 40 - 150 U/L [facility] ALT [Catalytic activity/Vol] 15 U/L NINF - 30 U/L [facility] Anion gap [Moles/Vol] 10 mmol/L 3 - 13 mmol/L [facility] AST [Catalytic activity/Vol] 21 U/L NINF - 34 U/L [facility] Bilirubin [Mass/Vol] 0.3 mg/dL NINF - 1.2 mg/dL [facility] Calcium [Mass/Vol] 8.5 mg/dL Low 8.8 - 10. 0 mg/dL [facility] Chloride [Moles/Vol] 112 mmol/L High 98 - 10 7 mmol/L [facility] CO2 [Moles/Vol] 21 mmol/L Low 23 - 31 mmol/L [facility] Creatinine [Mass/Vol] 1.4 mg/dL High 0.57 - 1.11 mg/dL [facility] GFR/1.73 sq M.predicted (S/P/Bld) [Vol rate/Area] 36.9 mL/min Low - PINF [facility] Comment on above: Calculation based on the Chronic Kidney Disease Epidemiology Collaboration (CKD-EPI) equation refit without adjustment for race Glucose [Mass/Vol] 239 mg/dL High 82 - 115 mg/dL [facility] Potassium [Moles/Vol] 4.5 mmol/L 3.5 - 5.1 mmol/L [facility] Comment on above: Plasma potassium ashley ues may be up to 0.5 mmol/L lower than serum values. Protein [Mass/Vol] 6 g/dL Low 6.4 - 8.3 g/dL [facility] Sodium [Moles/Vol] 143 mmol/L 136 - 145 mmol/L [facility] Urea nitrogen [Mass/Vol] 47 mg/dL High 9 - 23 mg/dL [facility] Laboratory - Chemistry and C hemistry - challengeon 12-05-2024 Glucose [Mass/Vol] 268 mg/dL High 70 - 100 mg/dL [facility] Glucose [Mass/Vol] 216 mg/dL High 70 - 100 mg/dL [facility] Magnesium [Mass/Vol] 1.5 mg/dL Low 1.6 - 2 .6 mg/dL [facility] Laboratory - Microbiology an d Antimicrobial susceptibilityOrdered By: Kenya Baig on 12-05-2024 Bacteria identified Cx Nom (U) >100,000 CFU/mL Klebsiella species Abnormal [facility] MAGNESIUMon 12-05-2024 Magnesium [Mass/Vol] 1.5 mg/dL Low 1.6-2.6 [facility] Comment on above: Result Comment: ORDE R COMMENTS:Higher values can be expected in females during menses. Performed By: #### L AB103, LAB17 ####Escort Vehicle Driver: MUSHTAQ MAGUIRE ([id number])[facility] ([facility])[address] [place] [address] Magnesium [Mass/Vol]on 12-05 Higher values can be expected in females during menses. [facility] No Panel Informationon 12-05 Interpretation and review of laboratory results Abnormal [facility] Performed by: [facility], [address] [place] [address] CLIA ID: [id number] [facility] Interpretation and review of laboratory results Abnormal [facility] Performed by: [facility], [address] [place] [address] CLIA ID: [id number] [facility] Interpretation and review of laboratory results Abnormal [facility] 30on 12-04-2024 30 Normal [facility] 30 Normal [facility] CBC (HEMOGRAM)on 12-04-2024 Erythrocyte distribution width (RBC) [Ratio] 13.9 % Normal 11.5-15.0 [facility] Comment on above: Performed By: #### L AB294 ####Escort Vehicle Driver: MUSHTAQ MAGUIRE ([id number])[facility] ([facility])[address] [place] [address] Hematocrit (Bld) [Volume fraction] 38.4 % Normal 35.0-47.0 [facility] Comment on above: Performed By: #### L AB294 ####Escort Vehicle Driver: MUSHTAQ MAGUIRE ([id number])[facility] ([facility])[address] [place] [address] Hemoglobin (Bld) [Mass/Vol] 12.4 g/dL Normal 11.7-16.0 [facility] Comment on above: Performed By: #### L AB294 ####Escort Vehicle Driver: MUSHTAQ MAGUIRE ([id number])[facility] ([facility])[address] [place] [address] MCH (RBC) [Entitic mass] 29.9 pg Normal 26.0-34.0 [facility] Comment on above: Performed By: #### L AB294 ####Escort Vehicle Driver: MUSHTAQ MAGUIRE ([id number])[facility] ([facility])[address] [place] [address] MCHC 32.3 % Normal 30.5-36.0 [facility] Comment on above: Performed By: #### L AB294 ####Escort Vehicle Driver: MUSHTAQ MAGUIRE ([id number])RODRIGO ABURTOGloria (SBHLAB)[address] MCV (RBC) [Entitic vol] 92.5 fL Normal 77.0-99.0 [facility] Comment on above: Performed By: #### L AB294 ####Escort Vehicle Driver: MUSHTAQ MAGUIRE ([id number])[facility]ENTERJuliana MAGALLONMESILLA VALLEY HOSPITALGloria (SBHLAB)[address] Platelet mean volume (Bld) [Entitic vol] 10.4 fL Normal 9.0-12.7 [facility] Comment on above: Performed By: #### L AB294 ####Escort Vehicle Driver: MUSHTAQ MAGUIRE ([id number])[facility]ENTERJuliana MAGALLONBANNER ([facility])[address] [place] [address] Platelets (Bld) [#/Vol] 303 10*3/uL Normal 140-440 [facility] Comment on above: Performed By: #### L AB294 ####Escort Vehicle Driver: MUSHTAQ MAGUIRE ([id number])[facility]ENTERJuliana MAGALLONBANNER ([facility])[address] [place] [address] RBC (Bld) [#/Vol] 4.15 10*6/uL Normal 3.80-5.20 [facility] Comment on above: Performed By: #### L AB294 ####Escort Vehicle Driver: MUSHTAQ MAGUIRE ([id number])[facility]ENTERJuliana MAGALLONMESILLA VALLEY HOSPITALGloria (SBHLAB)[address] WBC (Bld) [#/Vol] 9.7 10*3/uL Normal 3.6-10.7 [facility] Comment on above: Performed By: #### L AB294 ####Escort Vehicle Driver: MUSHTAQ MAGUIRE ([id number])[facility]ENTERJuliana MAGALLONBANNER (SB[facility])[address] CBC panel Auto (Bld)on 04-25 -2025 Erythrocyte distribution width (RBC) [Ratio] 13.9 % 11.5 - 15.0 % [facility] Hematocrit (Bld) [Volume fraction] 38.4 % 35.0 - 47.0 % [facility] Hemoglobin (Bld) [Mass/Vol] 12.4 g/dL 11.7 - 16.0 g/dL [facility] Interpretation and review of laboratory results Normal [facility] MCH (RBC) [Entitic mass] 29.9 pg 26.0 - 34.0 pg [facility] MCHC (RBC) [Mass/Vol] 32.3 % 30.5 - 36.0 % [facility] MCV (RBC) [Entitic vol] 92.5 fL 77.0 - 99.0 fL [facility] Platelet mean volume (Bld) [Entitic vol] 10.4 fL 9.0 - 12.7 fL [facility] Platelets (Bld) [#/Vol] 303 10*3/uL 140 - 440 10*3/uL [facility] RBC (Bld) [#/Vol] 4.15 10*6/uL 3.80 - 5.20 10*6/uL [facility] WBC (Bld) [#/Vol] 9.7 10*3/uL 3.6 - 10.7 10*3/uL [facility] COMPREHENSIVE METABOLIC PANE David 12-04-2024 Albumin [Mass/Vol] 3.1 g/dL Low 3.4-4.8 [facility] Comment on above: Performed By: #### L AB17, [id number] ####Escort Vehicle Driver: MUSHTAQ MAGUIRE ([id number])[facility] ([facility])[address] [place] [address] ALP [Catalytic activity/Vol] 51 U/L Normal 40-150 [facility] Comment on above: Performed By: #### L AB17, [id number] ####Escort Vehicle Driver: MUSHTAQ MAGUIRE ([id number])[facility] ([facility])[address] ALT [Catalytic activity/Vol] 16 U/L Normal <30 [facility] Comment on above: Performed By: #### L AB17, [id number] ####Escort Vehicle Driver: MUSHTAQ MAGUIRE ([id number])[facility] (SB[facility])[address] Anion gap [Moles/Vol] 9 mmol/L Normal 3-13 [facility] Comment on above: Performed By: #### L AB17, [id number] ####Escort Vehicle Driver: MUSHTAQ MAGUIRE ([id number])[facility] [place] ([facility])[address] AST [Catalytic activity/Vol] 19 U/L Normal <34 [facility] Comment on above: Performed By: #### L AB17, [id number] ####Escort Vehicle Driver: MUSHTAQ MAGUIRE ([id number])[facility] [place] ([facility])[address] Bilirubin [Mass/Vol] 0.3 mg/dL Normal <1.2 [facility] Comment on above: Performed By: #### L AB17, [id number] ####Escort Vehicle Driver: MUSHTAQ MAGUIRE ([id number])[facility] [place] ([facility])[address] Calcium [Mass/Vol] 8.6 mg/dL Low 8.8-10.0 [facility] Comment on above: Performed By: #### L AB17, [id number] ####Escort Vehicle Driver: MUSHTAQ MAGUIRE ([id number])[facility] [place] (SB[facility])[address] [place] [address] [place] Chloride [Moles/Vol] 110 mmol/L High 98-107 [facility] Comment on above: Performed By: #### L AB17, [id number] ####Escort Vehicle Driver: MUSHTAQ MAGUIRE ([id number])[facility] [place] ([facility])[address] [place] [address] [place] CO2 [Moles/Vol] 19 mmol/L Low 23-31 [facility] Comment on above: Performed By: #### L AB17, [id number] ####Escort Vehicle Driver: MUSHTAQ MAGUIRE ([id number])[facility] [place] ([facility])[address] [place] [address] [place] Creatinine [Mass/Vol] 1.28 mg/dL High 0.57-1.11 [facility] Comment on above: Performed By: #### L AB17, [id number] ####Escort Vehicle Driver: MUSHTAQ MAGUIRE ([id number])[facility] [place] ([facility])[address] [place] [address] [place] GLOMERULAR FILTRATION RATE ML/MIN/1.73 SQ M.PREDICTED 41.1 mL/min/1.73m*2 Low >60.0 [facility] Comment on above: Result Comment: Calc ulation based on the Chronic Kidney Disease Epidemiology Collaboration (CKD-EPI) equation refit without adjustment for race Performed By: #### L AB17, [id number] ####Escort Vehicle Driver: MUSHTAQ MAGUIRE ([id number])[facility] [place] ([facility])[address] Glucose [Mass/Vol] 251 mg/dL High 82-115 [facility] Comment on above: Performed By: #### L AB17, [id number] ####Escort Vehicle Driver: MUSHTAQ MAGUIRE ([id number])[facility] [place] ([facility])[address] [place] [address] [place] Potassium [Moles/Vol] 4.5 mmol/L Normal 3.5-5.1 [facility] Comment on above: Result Comment: [facility] potassium values may be up to 0.5 mmol/L lower than serum values. Performed By: #### L AB17, [id number] ####Escort Vehicle Driver: MUSHTAQ MAGUIRE ([id number])[facility] [place] ([facility])[address] [place] [address] [place] Protein [Mass/Vol] 6.3 g/dL Low 6.4-8.3 [facility] Comment on above: Performed By: #### L AB17, [id number] ####Escort Vehicle Driver: MUSHTAQ MAGUIRE ([id number])[facility] [place] ([facility])[address] [place] [address] [place] Sodium [Moles/Vol] 138 mmol/L Normal 136-145 [facility] Comment on above: Performed By: #### L AB17, [id number] ####Escort Vehicle Driver: MUSHTAQ HOLMCER ([id number])[facility] ([facility])[address] Urea nitrogen [Mass/Vol] 40 mg/dL High 9-23 [facility] Comment on above: Performed By: #### L AB17, [id number] ####Escort Vehicle Driver: MUSHTAQ XIEJOAN ([id number])[facility] ([facility])[address] Comprehensive metabolic 1998 panelon 12-04-2024 Albumin [Mass/Vol] 3.1 g/dL Low 3.4 - 4.8 g/dL [facility] ALP [Catalytic activity/Vol] 51 U/L 40 - 150 U/L [facility] ALT [Catalytic activity/Vol] 16 U/L NINF - 30 U/L [facility] Anion gap [Moles/Vol] 9 mmol/L 3 - 13 mmol/L [facility] AST [Catalytic activity/Vol] 19 U/L NINF - 34 U/L [facility] Bilirubin [Mass/Vol] 0.3 mg/dL NINF - 1.2 mg/dL [facility] Calcium [Mass/Vol] 8.6 mg/dL Low 8.8 - 10. 0 mg/dL [facility] Chloride [Moles/Vol] 110 mmol/L High 98 - 10 7 mmol/L [facility] CO2 [Moles/Vol] 19 mmol/L Low 23 - 31 mmol/L [facility] Creatinine [Mass/Vol] 1.28 mg/dL High 0.57 - 1.11 mg/dL [facility] GFR/1.73 sq M.predicted (S/P/Bld) [Vol rate/Area] 41.1 mL/min Low - PINF [facility] Comment on above: Calculation based on the Chronic Kidney Disease Epidemiology Collaboration (CKD-EPI) equation refit without adjustment for race Glucose [Mass/Vol] 251 mg/dL High 82 - 115 mg/dL [facility] Interpretation and review of laboratory results Abnormal [facility] Potassium [Moles/Vol] 4.5 mmol/L 3.5 - 5.1 mmol/L [facility] Comment on above: Plasma potassium ashley ues may be up to 0.5 mmol/L lower than serum values. Protein [Mass/Vol] 6.3 g/dL Low 6.4 - 8.3 g/dL [facility] Sodium [Moles/Vol] 138 mmol/L 136 - 145 mmol/L [facility] Urea nitrogen [Mass/Vol] 40 mg/dL High 9 - 23 mg/dL [facility] Consulton 12-04-2024 Consult Normal [facility] Laboratory - Chemistry and C hemistry - challengeon 12-04-2024 Glucose [Mass/Vol] 379 mg/dL High 70 - 100 mg/dL [facility] Glucose [Mass/Vol] 301 mg/dL High 70 - 100 mg/dL [facility] Magnesium [Mass/Vol] 1.5 mg/dL Low 1.6 - 2 .6 mg/dL [facility] Glucose [Mass/Vol] mg/dL High 70 - 100 mg/dL [facility] Comment on above: Caregiver Notified; Glucose [Mass/Vol] 294 mg/dL High 70 - 100 mg/dL [facility] MAGNESIUMon 12-04-2024 Magnesium [Mass/Vol] 1.5 mg/dL Low 1.6-2.6 [facility] Comment on above: Result Comment: CARLTON Geiger COMMENTS:Higher values can be expected in females during menses. Performed By: #### L AB17, [id number] ####Escort Vehicle Driver: MUSHTAQ MAGUIRE ([id number])[facility] H[facility] ([facility])[address] [place] [address] Magnesium [Mass/Vol]on 12-04 Interpretation and review of laboratory results Abnormal [facility] Higher values can be expected in females during menses. [facility] No Panel Informationon 12-04 Interpretation and review of laboratory results Abnormal [facility] Performed by: [facility], [address] [facility] [address] CLIA ID: [id number] [facility] Interpretation and review of laboratory results Abnormal [facility] Performed by: [facility], [address] [facility] [address] CLIA ID: [id number] [facility] Interpretation and review of laboratory results Abnormal [facility] Performed by: [facility], [address], [facility] [address] CLIA ID: [id number] [facility] Interpretation and review of laboratory results Abnormal [facility] Performed by: [facility], [address], [facility] [address] CLIA ID: [id number] [facility] Progress Noteon 12-04-2024 Progress Note Normal [facility] Progress Note Normal [facility] Progress Note Normal [facility] Progress Note Normal [facility] Progress Note Normal [facility] 30on 12-03-2024 30 Normal [facility] 30 Normal [facility] [id number] 12-03-2024 [id number] Normal [facility] [id number] 12-03-2024 [id number] Normal [facility] CRP [Mass/Vol]on 12-03-2024 Interpretation and review of laboratory results Normal [facility] Consulton 12-03-2024 Consult Normal [facility] Consult Normal [facility] ECG 12-LEADon 12-03-2024 ECG 12-LEAD IMPRESSION: Atrial fibrillation Borderline left axis deviation Borderline T wave abnormalities Borderline prolonged QT interval No previous ECG available for comparison Electronically Signed On 12-03-2024 10:10:35 EDT by Vero Byrd Normal [facility] ED Nursing Noteon 12-03-2024 ED Nursing Note Phoned [facility] 2E. Hand off report given to KENNA Chavez. Normal [facility] Laboratory - Chemistry and C hemistry - challengeon 12-03-2024 Glucose [Mass/Vol] 316 mg/dL High 70 - 100 mg/dL [facility] Glucose [Mass/Vol] 303 mg/dL High 70 - 100 mg/dL [facility] Procalcitonin [Mass/Vol] 0.07 ng/mL [facility] CRP [Mass/Vol] 3.5 mg/L [facility] 5[facility] mg/L [facility] Average glucose Estimated from glycated hemoglobin (Bld) [Mass/Vol] 212 mg/dL [facility] Glucose [Mass/Vol] 220 mg/dL High 70 - 100 mg/dL [facility] Glucose [Mass/Vol] 126 mg/dL High 70 - 100 mg/dL [facility] [employer] Glucose [Mass/Vol] 220 mg/dL High 70 - 100 mg/dL [facility] Laboratory - Hematology and Cell countson 12-03-2024 HbA1c (Bld) [Mass fraction] 9 % High NINF [facility] [employer] Comment on above: Normal less than 5.7 % Prediabetes 5.7% to 6.4% Diabetes 6.5% or higher --HgbA1C levels may not be accurate in patients who have renal disease, received recent blood transfusions, are anemic, or who have dyshemoglobinemia. No Panel Informationon 12-03 Interpretation and review of laboratory results Abnormal [facility] Performed by: [facility], [address] [place] [address] CLIA ID: [id number] [facility] [employer] Interpretation and review of laboratory results Abnormal [facility] Performed by: [facility], [address] [place] [address] CLIA ID: [id number] [facility] Interpretation and review of laboratory results Abnormal [facility] HbA1c values of 5.7- 6.4 percent indicate an increased risk for developing diabetes mellitus. HbA1c values greater than or equal to 6.5 percent are diagnostic of diabetes mellitus. For diagnosis of diabetes in individuals without unequivocal hyperglycemia, results should be confirmed by repeat testing. [facility] Interpretation and review of laboratory results Abnormal [facility] Performed by: [facility], [address] [place] [address] CLIA ID: [id number] [facility] Atrial fibrillation Borderline left axis deviation Borderline [...] On 12-03-2024 10:10:35 EDT by Vero Byrd [facility] Interpretation and review of laboratory results Abnormal [facility] Performed by: [facility], [address] [place] [address] CLIA ID: [id number] [facility] Interpretation and review of laboratory results Abnormal [facility] Performed by: [facility], [address] [facility] [address] CLIA ID: [id number] [facility] [employer] No Panel InformationOrdered By: Vero Byrd on 12-03-2024 P Eastman 0 degrees [facility] Work Phone: NV Interval 0 ms [facility] Work Phone: QRS Eastman -21 degrees [facility] Work Phone: [phone] QRSD Interval 88 ms [facility] Work Phone: QT Interval 361 ms [facility] [employer] Work Phone: [phone] QTC Interval 493 ms [facility] Work Phone: T Wave Eastman 11 degrees [facility] [employer] Work Phone: [employer] Work Phone: Nursing Noteon 12-03-2024 Nursing Note Normal [facility] Nursing Note Pt a fib RVR - susta ining HR 110-130s. Pt does have history of a fib. Dr Cooper notified via Secure Chat. Normal [facility] Nursing Note Normal [facility] Procalcitonin [Mass/Vol]on 0 12-03-2024 Interpretation and review of laboratory results Abnormal [facility] PCT <0.50 = Low risk of severe sepsis and/or septic shock. PCT >2.00 = High risk of severe sepsis and/or septic shock. [facility] Progress Noteon 12-03-2024 Progress Note Normal [facility] Progress Note Normal [facility] US Kidneyon 12-03-2024 No hydronephrosis or nephrolithiasis. Minimal intraluminal debris in the urinary bladder. Report Dictated on Electronically Signed By: Patel Ortiz MD Electronically Signed Date/Time: 12/03/2024 12:37 PM EDT [facility] Viscose Closures SYSTEM Patient Name: HANNA NELSON : 1940 [...] collection is seen adjacent to the kidneys. [facility] RADIOLOGY SYSTEM Patel Ortiz M D - 12/03/2024 [...] Electronically Signed Date/Time: 12/03/2024 12:37 PM EDT [facility] Radiology Study observation (narrative) [facility] US KidneyOrdered By: Patel Ortiz on 12-03-2024 [employer] Work Phone: US RENAL COMPLETEon 12-04-19 25 US RENAL COMPLETE Normal [facility] Vital signsOrdered By: Safia juliana Byrd on 12-03-2024 Heart rate 112 /min bpm [facility] [employer] Work Phone: BETA HYDROXYBUTYRATEon 12-02 BETA HYDROXYBUTYRATE 7.7 mg/dL High <=2.8 [facility] Comment on above: Performed By: #### L [id number], LAB17, [id number], [id number] ####Escort Vehicle Driver: BROOKE RINCON ([phone])[facility] RODOLFO RITAMA (SWRLAB)[address] [place] [address] C-REACTIVE PROTEINon 025 CRP [Mass/Vol] 3.5 mg/L Normal <5.0 [facility] Comment on above: Performed By: #### L [id number], LAB17, [id number], [id number] ####Escort Vehicle Driver: BROOKE RINCON ([id number])[facility] RODOLFO Sylvan SourceAN (RLAB)[address] [place] [address] CBC W Auto Differential pane l (Bld)on 12-02-2024 Basophils (Bld) [#/Vol] 0 10*3/uL 0.0 - 0.2 10*3/uL [facility] [employer] Basophils/100 WBC (Bld) 0.6 % 0.0 - 2.0 % [facility] Eosinophils (Bld) [#/Vol] 0.5 10*3/uL 0.0 - 0.5 10*3/uL [facility] [employer] Eosinophils/100 WBC (Bld) 7.1 % High 0.0 - 6.0 % [facility] Erythrocyte distribution width (RBC) [Ratio] 13.4 % 11.5 - 15.0 % [facility] Hematocrit (Bld) [Volume fraction] 36.9 % 35.0 - 47.0 % [facility] Hemoglobin (Bld) [Mass/Vol] 12.5 g/dL 11.7 - 16.0 g/dL [facility] Immature granulocytes (Bld) [#/Vol] 0.1 10*3/uL High NINF - 0.1 10*3/uL [facility] Immature granulocytes/100 WBC (Bld) 2 % 0.0 - 2.0 % [facility] Interpretation and review of laboratory results Abnormal [facility] Lymphocytes (Bld) [#/Vol] 1.3 10*3/uL 1.0 - 4.3 10*3/uL [facility] Lymphocytes/100 WBC (Bld) 18.1 % 15.0 - 45.0 % [facility] MCH (RBC) [Entitic mass] 30.1 pg 26.0 - 34.0 pg [facility] MCHC (RBC) [Mass/Vol] 33.9 % 30.5 - 36.0 % [facility] MCV (RBC) [Entitic vol] 88.9 fL 77.0 - 99.0 fL [facility] Monocytes (Bld) [#/Vol] 0.6 10*3/uL 0.0 - 0.9 10*3/uL [facility] Monocytes/100 WBC (Bld) 9 % 5.0 - 13.0 % [facility] Neutrophils (Bld) [#/Vol] 4.4 10*3/uL 1.8 - 7.5 10*3/uL [facility] Neutrophils/100 WBC (Bld) 63.2 % 38.0 - 82.0 % [facility] Nucleated RBC/100 WBC (Bld) [Ratio] 0 % [facility] Platelet mean volume (Bld) [Entitic vol] 10.3 fL 9.0 - 12.7 fL [facility] Comment on above: MPV is a calculated measurement using platelet volume ratio Platelets (Bld) [#/Vol] 276 10*3/uL 140 - 440 10*3/uL [facility] RBC (Bld) [#/Vol] 4.15 10*6/uL 3.80 - 5.20 10*6/uL [facility] WBC (Bld) [#/Vol] 6.9 10*3/uL 3.6 - 10.7 10*3/uL [facility] CBC WITH AUTO DIFFERENTIALon 12-02-2024 Basophils (Bld) [#/Vol] 0.0 10*3/uL Normal 0.0-0.2 [facility] Comment on above: Performed By: #### L [id number] ####Escort Vehicle Driver: BROOKE RINCON ([phone])[facility] RODOLFO RITTMAN (SWRLAB)[address] [place] [address] [place] Basophils/100 WBC (Bld) 0.6 % Normal 0.0-2.0 [facility] Comment on above: Performed By: #### L [id number] ####Escort Vehicle Driver: BROOKE RINCON ([phone])[facility] CENTERJuliana REYNOLDS RITTMAN (SWRLAB)[address] [place] [address] [place] Eosinophils (Bld) [#/Vol] 0.5 10*3/uL Normal 0.0-0.5 [facility] Comment on above: Performed By: #### L [id number] ####Escort Vehicle Driver: BROOKE RINCON ([phone])[facility] CENTERJuliana REYNOLDS RITTMAN (SWRLAB)[address] [place] [address] [place] Eosinophils/100 WBC (Bld) 7.1 % High 0.0-6.0 [facility] Comment on above: Performed By: #### L [id number] ####Escort Vehicle Driver: BROOKE RINCON ([phone])[facility] CENTERJuliana MEADRODOLFO RITTMAN (SWRLAB)[address] [place] [address] Erythrocyte distribution width (RBC) [Ratio] 13.4 % Normal 11.5-15.0 [facility] Comment on above: Performed By: #### L [id number] ####Escort Vehicle Driver: BROOKE RINCON ([phone])[facility] CENTERJuliana REYNOLDS RITTMAN (SWRLAB)[address] [place] [address] Hematocrit (Bld) [Volume fraction] 36.9 % Normal 35.0-47.0 [facility] Comment on above: Performed By: #### L [id number] ####Escort Vehicle Driver: BROOKE RINCON ([phone])RODRIGO REYNOLDS RITTMAN (SWRLAB)[address] [place] [address] Hemoglobin (Bld) [Mass/Vol] 12.5 g/dL Normal 11.7-16.0 [facility] Comment on above: Performed By: #### L [id number] ####Escort Vehicle Driver: BROOKE RINCON ([phone])[facility] CENTERJuliana REYNOLDS RITTMAN (SWRLAB)[address] [place] [address] IMMATURE GRANS % 2.0 % Normal 0.0-2.0 [facility] Comment on above: Performed By: #### L [id number] ####Escort Vehicle Driver: BROOKE RINCON ([phone])[facility] CENTERJuliana REYNOLDS RITTMAN (SWRLAB)[address] [place] [address] [place] IMMATURE GRANS ABSOLUTE 0.1 10*3/uL High <0.1 [facility] Comment on above: Performed By: #### L [id number] ####Escort Vehicle Driver: BROOKE RINCON ([phone])[facility] CENTERuJliana REYNOLDS RITTMAN (SWRLAB)[address] [place] [address] [place] Lymphocytes (Bld) [#/Vol] 1.3 10*3/uL Normal 1.0-4.3 [facility] Comment on above: Performed By: #### L [id number] ####Escort Vehicle Driver: BROOKE RINCON ([phone])[facility] CENTERJuliana REYNOLDS RITTMAN (SWRLAB)[address] [place] [address] [place] Lymphocytes/100 WBC (Bld) 18.1 % Normal 15.0-45.0 [facility] Comment on above: Performed By: #### L [id number] ####Escort Vehicle Driver: BROOKE RINCON ([phone])[facility] CENTERJuliana REYNOLDS RITTMAN (SWRLAB)[address] [place] [address] MCH (RBC) [Entitic mass] 30.1 pg Normal 26.0-34.0 [facility] Comment on above: Performed By: #### L [id number] ####Escort Vehicle Driver: BROOKE RINCON ([id number])[facility] CENTERJuliana REYNOLDS RITTMAN (SWRLAB)[address] [place] [address] MCHC 33.9 % Normal 30.5-36.0 [facility] Comment on above: Performed By: #### L [id number] ####Escort Vehicle Driver: BROOKE RINCON ([phone])[facility] CENTERJuliana REYNOLDS RITTMAN (SWRLAB)[address] [place] [address] MCV (RBC) [Entitic vol] 88.9 fL Normal 77.0-99.0 [facility] Comment on above: Performed By: #### L [id number] ####Escort Vehicle Driver: BROOKE RINCON ([id number])[facility] CENTERJuliana REYNOLDS RITTMAN (SWRLAB)[address] [place] [address] Monocytes (Bld) [#/Vol] 0.6 10*3/uL Normal 0.0-0.9 [facility] Comment on above: Performed By: #### L [id number] ####Escort Vehicle Driver: BROOKE RINCON ([phone])[facility] CENTERJuliana REYNOLDS RITTMAN (SWRLAB)[address] [place] [address] Monocytes/100 WBC (Bld) 9.0 % Normal 5.0-13.0 [facility] Comment on above: Performed By: #### L [id number] ####Escort Vehicle Driver: BROOKE RINCON ([phone])[facility] CENTERJuliana MEADRODOLFO RITTMAN (SWRLAB)[address] [place] [address] NEUTROPHILS ABSOLUTE 4.4 10*3/uL Normal 1.8-7.5 [facility] Comment on above: Performed By: #### L [id number] ####Escort Vehicle Driver: BROOKE RINCON ([id number])[facility] CENTERJuliana REYNOLDS RITTMAN (SWRLAB)[address] [place] [address] [place] Neutrophils/100 WBC (Bld) 63.2 % Normal 38.0-82.0 [facility] Comment on above: Performed By: #### L [id number] ####Escort Vehicle Driver: BROOKE RINCON ([id number])RODRIGO REYNOLDS RITTMAN (SWRLAB)[address] [place] [address] NRBC 0.0 /100 WBCs Normal 0.0-2.0 [facility] Comment on above: Performed By: #### L [id number] ####Escort Vehicle Driver: BROOKE RINCON ([id number])[facility] CENTERJuliana REYNOLDS RITTMAN (SWRLAB)[address] [place] [address] Platelet mean volume (Bld) [Entitic vol] 10.3 fL Normal 9.0-12.7 [facility] Comment on above: Result Comment: MPV is a calculated measurement using platelet volume ratio Performed By: #### L [id number] ####Escort Vehicle Driver: BROOKE RINCON ([id number])[facility] CENTERJuliana REYNOLDS RITTMAN (SWRLAB)[address] [place] [address] [place] Platelets (Bld) [#/Vol] 276 10*3/uL Normal 140-440 [facility] Comment on above: Performed By: #### L [id number] ####Escort Vehicle Driver: BROOKE RINCON ([id number])[facility] CENTERJuliana REYNOLDS RITTMAN (SWRLAB)[address] [place] [address] [place] RBC (Bld) [#/Vol] 4.15 10*6/uL Normal 3.80-5.20 [facility] Comment on above: Performed By: #### L [id number] ####Escort Vehicle Driver: BROOKE RINCON ([id number])[facility] CENTERJuliana REYNOLDS RITTMAN (SWRLAB)[address] [place] [address] WBC (Bld) [#/Vol] 6.9 10*3/uL Normal 3.6-10.7 [facility] Comment on above: Performed By: #### L [id number] ####Escort Vehicle Driver: BROOKE RINCON ([id number])[facility]ENTERA RODOLFO RITTMAN (SWRLAB)[address] [place] [address] COMPLETE URINALYSISon 2024 BACTERIA (#/HPF) IN URINE Loaded Abnormal Negative [facility] Comment on above: Performed By: #### L [id number] ####Escort Vehicle Driver: BROOKE RINCON ([id number])[facility] (SACLAB)[address] [place] [address]#### [id number] ####Escort Vehicle Driver: BROOKE RINCON ([phone])[facility]ENTERA RODOLFO RITTMAN (SWRLAB)[address] [place] [address] BILIRUBIN, TOTAL PRESENCE IN URINE Negative Normal Negative [facility] Comment on above: Performed By: #### L [id number] ####Escort Vehicle Driver: BROOKE RINCON ([id number])[facility] (SACLAB)[address] [place] [address]#### [id number] ####Escort Vehicle Driver: BROOKE RINCON ([id number])[facility]A RODOLFO RITTMAN (SWRLAB)[address] [place] [address] Clarity (U) Clear Normal Clear [facility] Comment on above: Performed By: #### L [id number] ####Escort Vehicle Driver: BROOKE RINCON ([id number])[facility] (SAC[facility])[address] [place] [address]#### [id number] ####Escort Vehicle Driver: BROOKE RINCON ([id number])[facility]ENTERA RODOLFO RITTMAN (SWRLAB)[address] [place] [address] Color (U) Light Yellow Normal Lt. Yellow [facility] Comment on above: Performed By: #### L [id number] ####Escort Vehicle Driver: BROOKE RINCON ([phone])[facility] ([facility])[address] [place] [address] [place]#### [id number] ####Escort Vehicle Driver: BROOKE RINCON ([id number])[facility] RODOLFO RITTMAN (SWRLAB)[address] [place] [address] GLUCOSE (MG/DL) IN URINE 1,000 mg/dL Abnormal Normal (<70) [facility] Comment on above: Performed By: #### L [id number] ####Escort Vehicle Driver: BROOKE RINCON ([id number])[facility] ([facility])[address] [place] [address] [place]#### [id number] ####Escort Vehicle Driver: BROOKE RINCON ([id number])[facility] RITTMAN (SWRLAB)[address] [place] [address] HEMOGLOBIN PRESENCE IN URINE Negative Normal Negative [facility] Comment on above: Performed By: #### L [id number] ####Escort Vehicle Driver: BROOKE RINCON ([id number])[facility] ([facility])[address] [place] [address]#### [id number] ####Escort Vehicle Driver: BROOKE RINCON ([id number])[facility] RITTMAN (SWRLAB)[address] [place] [address] Ketones Ql (U) Negative Normal Negative [facility] Comment on above: Performed By: #### L [id number] ####Escort Vehicle Driver: BROOKE RINCON ([id number])[facility] ([facility])[address] [place] [address]#### [id number] ####Escort Vehicle Driver: BROOKE RINCON ([id number])[facility]ITALROD[facility] RITTMAN (SWRLAB)[address] [place] [address] LEUKOCYTE ESTERASE PRESENCE IN URINE BY TEST STRIP 250 Baljit/uL Abnormal Negative [facility] Comment on above: Performed By: #### L [id number] ####Escort Vehicle Driver: BROOKE RINCON ([id number])[facility] ([facility])[address] [place] [address] [place]#### [id number] ####Escort Vehicle Driver: BROOKE RINCON ([id number])[facility]OSPITALRODOLFO RITTMAN (SWRLAB)[address] [place] [address] NITRITE PRESENCE IN URINE Negative Normal Negative [facility] Comment on above: Performed By: #### L [id number] ####Escort Vehicle Driver: BROOKE RINCON ([id number])[facility] ([facility])[address] [place] [address]#### [id number] ####Escort Vehicle Driver: BROOKE RINCON ([id number])[facility]ENTERJuliana SOLORIOTMAN (SWRLAB)[address] [place] [address] pH (U) 5.5 [pH] Normal 5.0-8.0 [facility] Comment on above: Performed By: #### L [id number] ####Escort Vehicle Driver: BROOKE RINCON ([id number])[facility] ([facility])[address] [place] [address]#### [id number] ####Escort Vehicle Driver: BROOKE RINCON ([id number])[facility] HOSPITALRODOLFORANDY SOLORIOTMAN (SWRLAB)[address] [place] [address] Protein (U) [Mass/Vol] Negative Normal Negative [facility] Comment on above: Performed By: #### L [id number] ####Escort Vehicle Driver: BROOKE RINCON ([id number])[facility] ([facility])[address] [place] [address]#### [id number] ####Escort Vehicle Driver: BROOKE RINCON ([id number])[facility] RODOLFO SOLORIOTMAN (SWRLAB)[address] [place] [address] RBC (#/HPF) IN URINE SEDIMENT 0-2 Normal 0-2 [facility] Comment on above: Performed By: #### L [id number] ####Escort Vehicle Driver: BROOKE RINCON ([id number])[facility] ([facility])[address] [place] [address] [place]#### [id number] ####Escort Vehicle Driver: BROOKE RINCON ([id number])[facility] RODOLFO OSMINTMAN (SWRLAB)[address] [place] [address] Specific gravity (U) [Rel density] 1.009 Normal 1.005-1.03 0 [facility] Comment on above: Performed By: #### L [id number] ####Escort Vehicle Driver: BROOKE RINCON ([id number])[facility] ([facility])[address] [place] [address]#### [id number] ####Escort Vehicle Driver: BROOKE RINCON ([id number])[facility] RODOLFO RITTMAN (SWRLAB)[address] [place] [address] Specimen volume (U) 12 mL Normal [facility] Comment on above: Performed By: #### L [id number] ####Escort Vehicle Driver: BROOKE RINCON ([id number])[facility] ([facility])[address] [place] [address]#### [id number] ####Escort Vehicle Driver: BROOKE RINCON ([id number])[facility] RODOLFO RITTMAN (SWRLAB)[address] [place] [address] SQUAMOUS EPITHELIAL CELLS (#/HPF) IN URINE SEDIMENT Negative Normal 3-5 [facility] Comment on above: Performed By: #### L [id number] ####Escort Vehicle Driver: BROOKE RINCON ([phone])[facility] ([facility])[address] [place] [address]#### [id number] ####Escort Vehicle Driver: BROOKE RINCON ([id number])[facility] RODOLFO RITTMAN (SWRLAB)[address] [place] [address] UROBILINOGEN (MG/DL) IN URINE Normal Normal Normal (0-1) [facility] Comment on above: Performed By: #### L [id number] ####Escort Vehicle Driver: BROOKE RINCON ([id number])[facility] ([facility])[address] [place] [address]#### [id number] ####Escort Vehicle Driver: BROOKE RINCON ([id number])[facility] RODOLFO RITTMAN (SWRLAB)[address] [place] [address] WBC (LEUKOCYTE) (#/HPF) IN URINE SEDIMENT 11-25 Abnormal 0-5 [facility] Comment on above: Performed By: #### L [id number] ####Escort Vehicle Driver: BROOKE RINCON ([phone])[facility] ([facility])[address] [place] [address]#### [id number] ####Escort Vehicle Driver: BROOKE RINCON ([id number])[facility]OSPITALRODOLFO OSMINTMAN (SWRLAB)[address] [place] [address] WBC (LEUKOCYTE) CLUMPS (#/HPF) IN URINE SEDIMENT Few Abnormal Negative [facility] Comment on above: Performed By: #### L [id number] ####Escort Vehicle Driver: BROOKE RINCON ([phone])[facility] ([facility])[address] [place] [address]#### [id number] ####Escort Vehicle Driver: BROOKE RINCON ([id number])[facility]OSPITALRODOLFO OSMINTMAN (SWRLAB)[address] [place] [address] COMPREHENSIVE METABOLIC PANE David 12-02-2024 Albumin [Mass/Vol] 3.9 g/dL Normal 3.4-4.8 [facility] Comment on above: Performed By: #### L AB149, LAB17, [id number], [id number] ####Escort Vehicle Driver: BROOKE RINCON ([id number])[facility] HOSPITALRODOLFO RITTMAN (SWRLAB)[address] [place] [address] ALP [Catalytic activity/Vol] 63 U/L Normal 40-150 [facility] Comment on above: Performed By: #### L AB149, LAB17, [id number], [id number] ####Escort Vehicle Driver: BROOKE RINCON ([id number])[facility]OS[facility]ITALRODOLFO RITTMAN (SWRLAB)[address] [place] [address] ALT [Catalytic activity/Vol] 19 U/L Normal <30 [facility] Comment on above: Performed By: #### L AB149, LAB17, [id number], [id number] ####Escort Vehicle Driver: BROOKE RINCON ([id number])[facility]ENTERJuliana REYNOLDS RITTMAN (SWRLAB)[address] Anion gap [Moles/Vol] 13 mmol/L Normal 3-13 [facility] Comment on above: Performed By: #### L AB149, LAB17, [id number], [id number] ####Escort Vehicle Driver: BROOKE RINCON ([phone])[facility] CENTERA RODOLFO RITTMAN (SWRLAB)[address] AST [Catalytic activity/Vol] 27 U/L Normal <34 [facility] Comment on above: Performed By: #### L AB149, LAB17, [id number], [id number] ####Escort Vehicle Driver: BROOKE RINCON ([phone])[facility] MED[facility] CENTERJuliana REYNOLDS RITTMAN (SWRLAB)[address] [place] [address] Bilirubin [Mass/Vol] 0.4 mg/dL Normal <1.2 [facility] Comment on above: Performed By: #### L AB149, LAB17, [id number], [id number] ####Escort Vehicle Driver: BROOKE RINCON ([id number])[facility] CENTERJuliana MEADRODOLFO RITTMAN (SWRLAB)[address] [place] [address] Calcium [Mass/Vol] 9.8 mg/dL Normal 8.8-10.0 [facility] Comment on above: Performed By: #### L AB149, LAB17, [id number], [id number] ####Escort Vehicle Driver: BROOKE RINCON ([id number])[facility] CENTERJuliana REYNOLDS RITTMAN (SWRLAB)[address] [place] [address] [place] Chloride [Moles/Vol] 112 mmol/L High 98-107 [facility] Comment on above: Performed By: #### L AB149, LAB17, [id number], [id number] ####Escort Vehicle Driver: BROOKE RINCON ([id number])[facility] CENTERJuliana MEADRODOLFO RITTMAN (SWRLAB)[address] [place] [address] [place] CO2 [Moles/Vol] 18 mmol/L Low 23-31 [facility] Comment on above: Performed By: #### L AB149, LAB17, [id number], [id number] ####Escort Vehicle Driver: BROOKE RINCON ([id number])[facility] CENTERJuliana SOLORIOTMAN (SWRLAB)[address] [place] [address] [place] Creatinine [Mass/Vol] 1.22 mg/dL High 0.57-1.11 [facility] Comment on above: Performed By: #### L AB149, LAB17, [id number], [id number] ####Escort Vehicle Driver: BROOKE RINCON ([id number])[facility]ENTERJuliana SOLORIOTMAN (SWRLAB)[address] [place] [address] [place] GLOMERULAR FILTRATION RATE ML/MIN/1.73 SQ M.PREDICTED 43.6 mL/min/1.73m*2 Low >60.0 [facility] Comment on above: Result Comment: Calc ulation based on the Chronic Kidney Disease Epidemiology Collaboration (CKD-EPI) equation refit without adjustment for race Performed By: #### L AB149, LAB17, [id number], [id number] ####Escort Vehicle Driver: BROOKE RINCON ([id number])[facility]ENTERJuliana SOLORIOTMAN (RLAB)[address] [place] [address] Glucose [Mass/Vol] 266 mg/dL High 82-115 [facility] Comment on above: Performed By: #### L AB149, LAB17, [id number], [id number] ####Escort Vehicle Driver: BROOKE RINCON ([id number])[facility]ENTERJuliana SOLORIOTMAN (SWRLAB)[address] [place] [address] [place] Potassium [Moles/Vol] 4.6 mmol/L Normal 3.5-5.1 [facility] Comment on above: Result Comment: [facility] potassium values may be up to 0.5 mmol/L lower than serum values. Performed By: #### L AB149, LAB17, [id number], [id number] ####Escort Vehicle Driver: BROOKE RINCON ([id number])[facility]ENTERA RODOLFO RITTMAN (SWRLAB)[address] Protein [Mass/Vol] 7.6 g/dL Normal 6.4-8.3 [facility] Comment on above: Performed By: #### L AB149, LAB17, [id number], [id number] ####Escort Vehicle Driver: BROOKE RINCON ([id number])[facility]ENTERJuliana REYNOLDS RITTMAN (SWRLAB)[address] [place] [address] Sodium [Moles/Vol] 143 mmol/L Normal 136-145 [facility] Comment on above: Performed By: #### L AB149, LAB17, [id number], [id number] ####Escort Vehicle Driver: BROOKE RINCON ([id number])[facility]ENTERJuliana SOLORIOTMAN (SWRLAB)[address] [place] [address] Urea nitrogen [Mass/Vol] 46 mg/dL High 9-23 [facility] Comment on above: Performed By: #### L AB149, LAB17, [id number], [id number] ####Escort Vehicle Driver: BROOKE RINCON ([id number])[facility] CENTERJuliana OWENSAN (SWRLAB)[address] [place] [address] CT HEAD WO IV CONTRASTon CT HEAD WO IV CONTRAST Normal [facility] CT Head WO contraston 2024 No acute intracrania l process. Report Dictated on Electronically Signed By: Priscila Miramontes MD Electronically Signed Date/Time: 12/02/2024 10:44 PM [facility] RADIOLOGY [facility] Patient Name: [...] in the right or left middle ear. [facility] RADI[facility]Y [facility] Priscila Miramontes MD - 12/02/2024 Patient [...] Electronically Signed Date/Time: 12/02/2024 10:44 PM EDT [facility] [employer] Radiology Study observation (narrative) [facility] CT Head WO contrastOrdered B y: Priscila Miramontes on 12-02-2024 [employer] [employer] Work Phone: Comprehensive metabolic 1998 panelon 12-02-2024 Albumin [Mass/Vol] 3.9 g/dL 3.4 - 4.8 g/dL [facility] [employer] ALP [Catalytic activity/Vol] 63 U/L 40 - 150 U/L [facility] [employer] ALT [Catalytic activity/Vol] 19 U/L NINF - 30 U/L [facility] [employer] Anion gap [Moles/Vol] 13 mmol/L 3 - 13 mmol/L [facility] [employer] AST [Catalytic activity/Vol] 27 U/L NINF - 34 U/L [facility] Bilirubin [Mass/Vol] 0.4 mg/dL NINF - 1.2 mg/dL [facility] Calcium [Mass/Vol] 9.8 mg/dL 8.8 - 10. 0 mg/dL [facility] Chloride [Moles/Vol] 112 mmol/L High 98 - 10 7 mmol/L [facility] CO2 [Moles/Vol] 18 mmol/L Low 23 - 31 mmol/L [facility] Creatinine [Mass/Vol] 1.22 mg/dL High 0.57 - 1.11 mg/dL [facility] GFR/1.73 sq M.predicted (S/P/Bld) [Vol rate/Area] 43.6 mL/min Low - PINF [facility] Comment on above: Calculation based on the Chronic Kidney Disease Epidemiology Collaboration (CKD-EPI) equation refit without adjustment for race Glucose [Mass/Vol] 266 mg/dL High 82 - 115 mg/dL [facility] Potassium [Moles/Vol] 4.6 mmol/L 3.5 - 5.1 mmol/L [facility] Comment on above: Plasma potassium ashley ues may be up to 0.5 mmol/L lower than serum values. Protein [Mass/Vol] 7.6 g/dL 6.4 - 8.3 g/dL [facility] Sodium [Moles/Vol] 143 mmol/L 136 - 145 mmol/L [facility] Urea nitrogen [Mass/Vol] 46 mg/dL High 9 - 23 mg/dL [facility] ED Nursing Noteon 12-02-2024 ED Nursing Note Patient linda area cl eansed and new adult brief placed on patient. Normal [facility] ED Nursing Note Patient assisted to bedpan to void. Normal [facility] ED Nursing Note Son and daughter to bedside. Normal [facility] ED Nursing Note Normal [facility] ED Provider Noteon ED Provider Note Normal [facility] HEMOGLOBIN A1Con 12-02-2024 Glucose [Mass/Vol] 212 mg/dL Normal [facility] Comment on above: Result Comment: ORDE R COMMENTS:If not done within the last 3 [id number] values of 5.7-6.4 percent indicate an increased risk for developing diabetes mellitus. HbA1c values greater than or equal to 6.5 percent are diagnostic of diabetes mellitus. For diagnosis of diabetes in individuals without unequivocal hyperglycemia, results should be confirmed by repeat testing. Performed By: #### L AB90 ####Escort Vehicle Driver: BROOKE RINCON ([id number])[facility] ([facility])[address] [place] [address] HEMOGLOBIN A1C 9.0 %HbA1C High <5.7 [facility] Comment on above: Result Comment: Norm al less than 5.7%Prediabetes 5.7% to 6.4%Diabetes 6.5% or higher--HgbA1C levels may not be accurate in patients who have renal disease, received recent blood transfusions, are anemic, or who have dyshemoglobinemia. Performed By: #### L AB90 ####Escort Vehicle Driver: BROOKE RINCON ([id number])[facility] ([facility])[address] [place] [address] Laboratory - Chemistry and C hemistry - challengeon 12-02-2024 Beta hydroxybutyrate [Mass/Vol] 7.7 mg/dL High NINF - 2.8 mg/dL [facility] No Panel Informationon 12-02 Interpretation and review of laboratory results Abnormal [facility] Nursing Noteon 12-02-2024 Nursing Note Chart accessed pendi ng transfer to [facility]. Normal [facility] PROCALCITONIN TESTon 025 PROCALCITONIN 0.07 ng/mL High <0.07 [facility] Comment on above: Result Comment: ORDE R COMMENTS:PCT <0.50 = Low risk of severe sepsis and/or septic shock.PCT >2.00 = High risk of severe sepsis and/or septic shock. Performed By: #### L AB149, LAB17, [id number], [id number] ####Escort Vehicle Driver: BROOKE RINCON ([id number])[facility] ([facility])[address] [place] [address] URINE CULTUREon 12-02-2024 Bacteria identified Cx Nom (U) Normal [facility] Comment on above: Performed By: #### L AB239 ####Escort Vehicle Driver: BROOKE RINCON ([id number])[facility] (SACLAB)[address] [place] [address]#### [id number] ####Escort Vehicle Driver: BROOKE RINCON ([id number])[facility] OSMINAMA (SWRLAB)[address] [place] [address] Urinalysis complete panel (U )Ordered By: Dulce Martinez on 12-02-2024 Bacteria LM.HPF (Urine sed) [#/Area] Loaded Abnormal Negative /HPF [facility] Bilirubin Ql (U) Negative Negative mg/dL [facility] Clarity (U) Clear Clear [facility] Health Color (U) Light Yellow Lt. Yellow [facility] Epithelial cells.squamous LM.HPF (Urine sed) [#/Area] Negative [facility] Glucose Ql (U) 1,000 Abnormal Normal (<70) mg/dL [facility] Hemoglobin Ql (U) Negative Negative mg/dL [facility] Interpretation and review of laboratory results Abnormal [facility] Ketones (U) [Mass/Vol] Negative Negat eddie mg/dL [facility] Leukocyte clumps LM.HPF (Urine sed) [#/Area] Few Abnormal Negative /HPF [facility] Leukocyte esterase Test strip Ql (U) 250 Abnormal Negative Baljit/uL [facility] Nitrite Ql (U) Negative Negative [facility] pH (U) 5.5 [pH] 5.0 - 8.0 pH [facility] Protein (U) [Mass/Vol] Negative Negat eddie mg/dL [facility] RBC LM.HPF (Urine sed) [#/Area] 0-2 [facility] Specific gravity (U) [Rel density] 1.009 1.005 - 1.030 [facility] Urobilinogen (U) [Mass/Vol] Normal Normal (0-1) mg/dL [facility] Volume, Urine 12 mL [facility] WBC LM.HPF (Urine sed) [#/Area] 11-25 Abnormal [facility] 29on 11-27-2024 29 Encounter addended b y: Liss Acevedo RN on: 11/27/2024 9:54 AM Actions taken: Flowsheet accepted Normal [facility] 37on 11-27-[address] [facility] No Panel Information11-27 NIKOS Ramesh RN - PSYCHOLOGIST [facility] 11/27/2024 9:23 AM Debridement Wound/Incision 09/18/24 Diabetic Ulcer Foot Right Performed by: ALEJANDRINA Ramesh CNP Authorized by: ALEJANDRINA Ramesh CNP Consent Consent obtained? verbal Consent given by: patient Risks discussed? procedural risks discussed Time out called at 11/27/2024 9:21 AM Immediately prior to the procedure a time out was called and the performing provider verified the correct patient, procedure, equipment, manager client support, and site/side marked as required. Debridement Details Performed by: GINNER HELPER Debridement type: surgical Level of debridement: subcutaneous [...] Response to treatment: procedure was tolerated well [facility] Progress Noteon 11-27-[address] [facility] 3711-20-[address] [facility] Progress Noteon 11-20-[address] [facility] 3711-13-[address] [facility] Progress Noteon 11-13-[address] [facility] 11-12-2024 36 Called and spoke to Hi. Pt is scheduled in December to see Priscila Laguerre. [facility] 36 Could you please assist? [facility] 3611-11-2024 36 Patient's further qu estions if applicable: Hi states he is calling to get pt scheduled for a follow up appt with office for sooner then what's available. Please advise. Normal [facility] 3711-06-2024 37 Normal [facility] Progress Noteon 11-06-[address] [facility] 36on 10-29-[address] [facility] 37on 10-16-[address] [facility] No Panel Informationon 10-16 Nallely Alas [...] Response to treatment: procedure was tolerated well [facility] Progress Noteon 10-16-[address] [facility] Progress Noteon 10-15-[address] [facility] 3710-09-[address] [facility] Progress Noteon 10-09-[address] [facility] 2910-02-2024 29 Encounter addended b y: Liss Acevedo RN on: 10/07/2024 8:01 AM Actions taken: Clinical Note Signed, Order list changed, Diagnosis association updated [facility] 29 Encounter addended b y: Dayna Medley RN on: 10/02/2024 2:26 PM Actions taken: Charge Capture section accepted [facility] 37on 10-02-[address] [facility] No Panel Informationon 10-02 NIKOS Ramesh RN - PSYCHOLOGIST [facility] 10/02/2024 10:39 AM Debridement Wound/Incision 09/18/24 Diabetic Ulcer Foot Right Performed by: ALEJANDRINA Ramesh CNP Authorized by: ALEJANDRINA Ramesh CNP Consent Consent obtained? verbal Consent given by: patient Risks discussed? procedural risks discussed Time out called at 10/02/2024 10:33 AM Immediately prior to the procedure a time out was called and the performing provider verified the correct patient, procedure, equipment, manager client support, and site/side marked as required. Debridement Details Performed by: GINNER HELPER Debridement type: surgical Level of debridement: subcutaneous [...] Response to treatment: procedure was tolerated well [facility] Progress Noteon 10-02-[address] [facility] 36on 09-29-2024 36 Spoke with pts son Annie nick. [facility] is [facility] [place] tomorrow. Will cancel future new patient appt with our practice. . [facility] 36on 09-25-2024 36 Pt has appt at [facility]. Called patient for clarification, pt advised to call her son. LVM for son asking to call back. Normal [facility] 30on 09-24-2024 30 Normal [facility] 30 Normal [facility] [id number] 09-24-2024 [id number] Normal [facility] [id number] Normal [facility] 36on 09-24-2024 36 Hi Tiffany, The family changed their mind and are agreeable to insulin for discharge. Can we continue Javier 3 plus? It is set up on her phone and doesn't require reader. Thanks! Normal [facility] BASIC METABOLIC PANELon 09-12 Anion gap [Moles/Vol] 9 mmol/L Normal - [facility] Comment on above: Performed By: #### L AB15 ####Escort Vehicle Driver: MUSHTAQ MAGUIRE ([id number])[facility] ([facility])[address] [place] [address] Calcium [Mass/Vol] 8.8 mg/dL Normal 8.8-10.0 [facility] Comment on above: Performed By: #### L AB15 ####Escort Vehicle Driver: MUSHTAQ MAGUIRE ([id number])[facility] ([facility])[address] Chloride [Moles/Vol] 111 mmol/L High 98-107 [facility] Comment on above: Performed By: #### L AB15 ####Escort Vehicle Driver: MUSHTAQ MAGUIRE ([id number])[facility])[address] CO2 [Moles/Vol] 19 mmol/L Low 23-31 [facility] Comment on above: Performed By: #### L AB15 ####Escort Vehicle Driver: MUSHTAQ MAGUIRE ([id number])[facility])[address] Creatinine [Mass/Vol] 1.07 mg/dL Normal 0.57-1.11 [facility] Comment on above: Performed By: #### L AB15 ####Escort Vehicle Driver: MUSHTAQ MAGUIRE ([id number])[facility] ([facility])[address] GLOMERULAR FILTRATION RATE ML/MIN/1.73 SQ M.PREDICTED 51.0 mL/min/1.73m*2 Low >60.0 [facility] Comment on above: Result Comment: Calc ulation based on the Chronic Kidney Disease Epidemiology Collaboration (CKD-EPI) equation refit without adjustment for race Performed By: #### L AB15 ####Escort Vehicle Driver: MUSHTAQ MAGUIRE ([id number])[facility])[address] Glucose [Mass/Vol] 238 mg/dL High 82-115 [facility] Comment on above: Performed By: #### L AB15 ####Escort Vehicle Driver: MUSHTAQ MAGUIRE ([id number])[facility] ([facility])[address] Potassium [Moles/Vol] 4.4 mmol/L Normal 3.5-5.1 [facility] Comment on above: Result Comment: [facility] potassium values may be up to 0.5 mmol/L lower than serum values. Performed By: #### L AB15 ####Escort Vehicle Driver: MUSHTAQ MAGUIRE ([id number])[facility])[address] [place] [address] [place] Sodium [Moles/Vol] 139 mmol/L Normal 136-145 [facility] Comment on above: Performed By: #### L AB15 ####Escort Vehicle Driver: MUSHTAQ MAGUIRE ([id number])[facility] (HL[facility])[address] [place] [address] [place] Urea nitrogen [Mass/Vol] 35 mg/dL High 9-23 [facility] Comment on above: Performed By: #### L AB15 ####Escort Vehicle Driver: MUSHTAQ MAGUIRE ([id number])[facility] (HL[facility])[address] Basic metabolic 1998 panelon 09-24-2024 Anion gap [Moles/Vol] 9 mmol/L 3 - 13 mmol/L [facility] Calcium [Mass/Vol] 8.8 mg/dL 8.8 - 10. 0 mg/dL [facility] Chloride [Moles/Vol] 111 mmol/L High 98 - 10 7 mmol/L [facility] CO2 [Moles/Vol] 19 mmol/L Low 23 - 31 mmol/L [facility] Creatinine [Mass/Vol] 1.07 mg/dL 0.57 - 1.11 mg/dL [facility] GFR/1.73 sq M.predicted (S/P/Bld) [Vol rate/Area] 51 mL/min Low - PINF [facility] Comment on above: Calculation based on the Chronic Kidney Disease Epidemiology Collaboration (CKD-EPI) equation refit without adjustment for race Glucose [Mass/Vol] 238 mg/dL High 82 - 115 mg/dL [facility] Interpretation and review of laboratory results Abnormal [facility] Potassium [Moles/Vol] 4.4 mmol/L 3.5 - 5.1 mmol/L [facility] Comment on above: Plasma potassium ashley ues may be up to 0.5 mmol/L lower than serum values. Sodium [Moles/Vol] 139 mmol/L 136 - 145 mmol/L [facility] Urea nitrogen [Mass/Vol] 35 mg/dL High 9 - 23 mg/dL [facility] CBC W Auto Differential pane l (Bld)on 09-24-2024 Basophils (Bld) [#/Vol] 0.1 10*3/uL 0.0 - 0.2 10*3/uL [facility] Basophils/100 WBC (Bld) 0.7 % 0.0 - 2.0 % [facility] Eosinophils (Bld) [#/Vol] 0.2 10*3/uL 0.0 - 0.5 10*3/uL [facility] Eosinophils/100 WBC (Bld) 3.6 % 0.0 - 6.0 % [facility] Erythrocyte distribution width (RBC) [Ratio] 13.5 % 11.5 - 15.0 % [facility] Hematocrit (Bld) [Volume fraction] 36.8 % 35.0 - 47.0 % [facility] Hemoglobin (Bld) [Mass/Vol] 11.7 g/dL 11.7 - 16.0 g/dL [facility] Immature granulocytes (Bld) [#/Vol] 0 10*3/uL NINF - 0.1 10*3/uL [facility] [employer] Immature granulocytes/100 WBC (Bld) 0.4 % 0.0 - 2.0 % [facility] Interpretation and review of laboratory results Normal [facility] Lymphocytes (Bld) [#/Vol] 1.8 10*3/uL 1.0 - 4.3 10*3/uL [facility] Lymphocytes/100 WBC (Bld) 27.3 % 15.0 - 45.0 % [facility] MCH (RBC) [Entitic mass] 30.8 pg 26.0 - 34.0 pg [facility] MCHC (RBC) [Mass/Vol] 31.8 % 30.5 - 36.0 % [facility] MCV (RBC) [Entitic vol] 96.8 fL 77.0 - 99.0 fL [facility] Monocytes (Bld) [#/Vol] 0.7 10*3/uL 0.0 - 0.9 10*3/uL [facility] Monocytes/100 WBC (Bld) 10.4 % 5.0 - 13.0 % [facility] Neutrophils (Bld) [#/Vol] 3.9 10*3/uL 1.8 - 7.5 10*3/uL [facility] Neutrophils/100 WBC (Bld) 57.6 % 38.0 - 82.0 % [facility] Nucleated RBC/100 WBC (Bld) [Ratio] 0 % [facility] Platelet mean volume (Bld) [Entitic vol] 11.1 fL 9.0 - 12.7 fL [facility] Platelets (Bld) [#/Vol] 215 10*3/uL 140 - 440 10*3/uL [facility] RBC (Bld) [#/Vol] 3.8 10*6/uL 3.80 - 5.20 10*6/uL [facility] WBC (Bld) [#/Vol] 6.7 10*3/uL 3.6 - 10.7 10*3/uL [facility] CBC WITH AUTO DIFFERENTIALon 09-24-2024 Basophils (Bld) [#/Vol] 0.1 10*3/uL Normal 0.0-0.2 [facility] Comment on above: Performed By: #### L [id number] ####Escort Vehicle Driver: MUSHTAQ XIEAlinDIANA ([id number])[facility] ([facility])[address] Basophils/100 WBC (Bld) 0.7 % Normal 0.0-2.0 [facility] Comment on above: Performed By: #### L [id number] ####Escort Vehicle Driver: UMSHTAQ ANDREZ ([id number])[facility] ([facility])[address] Eosinophils (Bld) [#/Vol] 0.2 10*3/uL Normal 0.0-0.5 [facility] Comment on above: Performed By: #### L [id number] ####Escort Vehicle Driver: MUSHTAQ ANDREZ ([id number])[facility] ([facility])[address] [place] [address] Eosinophils/100 WBC (Bld) 3.6 % Normal 0.0-6.0 [facility] Comment on above: Performed By: #### L [id number] ####Escort Vehicle Driver: MUSHTAQ ANDREZ ([id number])[facility] ([facility])[address] [place] [address] Erythrocyte distribution width (RBC) [Ratio] 13.5 % Normal 11.5-15.0 [facility] Comment on above: Performed By: #### L [id number] ####Escort Vehicle Driver: MUSHTAQ MAGUIRE ([id number])[facility] ([facility])[address] [place] [address] Hematocrit (Bld) [Volume fraction] 36.8 % Normal 35.0-47.0 [facility] Comment on above: Performed By: #### L [id number] ####Escort Vehicle Driver: MUSHTAQ OMALLEYDIANA ([id number])[facility] ([facility])[address] [place] [address] Hemoglobin (Bld) [Mass/Vol] 11.7 g/dL Normal 11.7-16.0 [facility] Comment on above: Performed By: #### L [id number] ####Escort Vehicle Driver: MUSHTAQ MAGUIRE ([id number])[facility] ([facility])[address] IMMATURE GRANS % 0.4 % Normal 0.0-2.0 [facility] Comment on above: Performed By: #### L [id number] ####Escort Vehicle Driver: MUSHTAQ MAGUIRE ([id number])[facility] ([facility])[address] IMMATURE GRANS ABSOLUTE 0.0 10*3/uL Normal <0.1 [facility] Comment on above: Performed By: #### L [id number] ####Escort Vehicle Driver: MUSHTAQ MAGUIRE ([id number])[facility] ([facility])[address] [place] [address] Lymphocytes (Bld) [#/Vol] 1.8 10*3/uL Normal 1.0-4.3 [facility] Comment on above: Performed By: #### L [id number] ####Escort Vehicle Driver: MUSHTAQ MAGUIRE ([id number])[facility] ([facility])[address] Lymphocytes/100 WBC (Bld) 27.3 % Normal 15.0-45.0 [facility] Comment on above: Performed By: #### L [id number] ####Escort Vehicle Driver: MUSHTAQ MAGUIRE ([id number])[facility] ([facility])[address] MCH (RBC) [Entitic mass] 30.8 pg Normal 26.0-34.0 [facility] Comment on above: Performed By: #### L [id number] ####Escort Vehicle Driver: MUSHTAQ MAGUIRE ([id number])[facility] ([facility])[address] MCHC 31.8 % Normal 30.5-36.0 [facility] Comment on above: Performed By: #### L [id number] ####Escort Vehicle Driver: MUSHTAQ MAGUIRE ([id number])[facility] ([facility])[address] MCV (RBC) [Entitic vol] 96.8 fL Normal 77.0-99.0 [facility] Comment on above: Performed By: #### L [id number] ####Escort Vehicle Driver: MUSHTAQ OMALLEYDIANA ([id number])[facility] [place] ([facility])[address] Monocytes (Bld) [#/Vol] 0.7 10*3/uL Normal 0.0-0.9 [facility] Comment on above: Performed By: #### L [id number] ####Escort Vehicle Driver: MUSHTAQ MAGUIRE ([id number])[facility] [place] (SBHLAB)[address] Monocytes/100 WBC (Bld) 10.4 % Normal 5.0-13.0 [facility] Comment on above: Performed By: #### L [id number] ####Escort Vehicle Driver: MUSHTAQ OMALLEYDIANA ([id number])[facility] [place] (SBHLAB)[address] NEUTROPHILS ABSOLUTE 3.9 10*3/uL Normal 1.8-7.5 [facility] Comment on above: Performed By: #### L [id number] ####Escort Vehicle Driver: MUSHTAQ MAGUIRE ([id number])[facility] [place] (SBHLAB)[address] Neutrophils/100 WBC (Bld) 57.6 % Normal 38.0-82.0 [facility] Comment on above: Performed By: #### L [id number] ####Escort Vehicle Driver: MUSHTAQ MAGUIRE ([id number])[facility] [place] (SBHLAB)[address] NRBC 0.0 /100 WBCs Normal 0.0-2.0 [facility] Comment on above: Performed By: #### L [id number] ####Escort Vehicle Driver: MUSHTAQ MAGUIRE ([id number])RODRIGO [place]JOR[place] (SBHLAB)[address] Platelet mean volume (Bld) [Entitic vol] 11.1 fL Normal 9.0-12.7 [facility] Comment on above: Performed By: #### L [id number] ####Escort Vehicle Driver: MUSHTAQ MAGUIRE ([id number])[facility] MAGALLONJOR[place] (SBHLAB)[address] [place] [address] [place] Platelets (Bld) [#/Vol] 215 10*3/uL Normal 140-440 [facility] Comment on above: Performed By: #### L [id number] ####Escort Vehicle Driver: MUSHTAQ MAGUIRE ([id number])[facility] MAG[place]ONJOR[place] (SBHLAB)[address] [place] [address] RBC (Bld) [#/Vol] 3.80 10*6/uL Normal 3.80-5.20 [facility] Comment on above: Performed By: #### L [id number] ####Escort Vehicle Driver: MUSHTAQ MAGUIRE ([id number])[facility] MAG[place]ONJOR[place] (SBHLAB)[address] [place] [address] WBC (Bld) [#/Vol] 6.7 10*3/uL Normal 3.6-10.7 [facility] Comment on above: Performed By: #### L [id number] ####Escort Vehicle Driver: MUSHTAQ MAGUIRE ([id number])[facility] MAG[place] (SBHLAB)[address] [place] [address] Laboratory - Chemistry and C hemistry - challengeon 09-24-2024 Glucose [Mass/Vol] 241 mg/dL High 70 - 100 mg/dL [facility] Glucose [Mass/Vol] 235 mg/dL High 70 - 100 mg/dL [facility] No Panel Informationon 09-24 Interpretation and review of laboratory results Abnormal [facility] Performed by: Rodrigo Estrella, [address] [place] [address] CLIA ID: [id number] [facility] Interpretation and review of laboratory results Abnormal [facility] Performed by: Summjuliana Estrella, [address] [address] CLIA ID: [id number] [facility] Progress Noteon 09-24-2024 Progress Note Normal [facility] Progress Note Normal [facility] Progress Note Normal [facility] 30on 09-23-2024 30 Normal [facility] [id number] 09-23-2024 [id number] Normal [facility] [id number] Normal [facility] [id number] Normal [facility] [id number] Normal [facility] 36on 09-23-2024 36 Hi Tiffany, This patient refused insulin for home going. She won't qualify for Javier sensors. Can you cancel this request? Thanks! Normal [facility] 36 GINNER HELPER appt cancelled by TIMBER MANAGEMENT SPECIALIST, Will defer for 3 days and follow up Normal [facility] 36 Normal [facility] BASIC METABOLIC PANELon 09-12 Anion gap [Moles/Vol] 9 mmol/L Normal 3-13 [facility] Comment on above: Performed By: #### L [id number] ####Escort Vehicle Driver: MUSHTAQ MAGUIRE ([id number])[facility] ([facility])[address] [place] [address] Calcium [Mass/Vol] 9.0 mg/dL Normal 8.8-10.0 [facility] Comment on above: Performed By: #### L [id number] ####Escort Vehicle Driver: MUSHTAQ MAGUIRE ([id number])[facility] [place] [address] Chloride [Moles/Vol] 111 mmol/L High 98-107 [facility] Comment on above: Performed By: #### L [id number] ####Escort Vehicle Driver: MUSHTAQ MAGUIRE ([id number])[facility] [place] [address] CO2 [Moles/Vol] 19 mmol/L Low 23-31 [facility] Comment on above: Performed By: #### L [id number] ####Escort Vehicle Driver: MUSHTAQ MAGUIRE ([id number])[facility] [place] (SBHLAB)[address] Creatinine [Mass/Vol] 1.08 mg/dL Normal 0.57-1.11 [facility] Comment on above: Performed By: #### L [id number] ####Escort Vehicle Driver: MUSHTAQ MAGUIRE ([id number])[facility] [place] (SBHLAB)[address] [place] [address] [place] GLOMERULAR FILTRATION RATE ML/MIN/1.73 SQ M.PREDICTED 50.4 mL/min/1.73m*2 Low >60.0 [facility] Comment on above: Result Comment: Calc ulation based on the Chronic Kidney Disease Epidemiology Collaboration (CKD-EPI) equation refit without adjustment for race Performed By: #### L [id number] ####Escort Vehicle Driver: MUSHTAQ MAGUIRE ([id number])[facility] (SBHLAB)[address] [place] [address] [place] Glucose [Mass/Vol] 255 mg/dL High 82-115 [facility] Comment on above: Performed By: #### L [id number] ####Escort Vehicle Driver: MUSHTAQ MAGUIRE ([id number])[facility] [place] (HLAB)[address] Potassium [Moles/Vol] 4.3 mmol/L Normal 3.5-5.1 [facility] Comment on above: Result Comment: [facility] potassium values may be up to 0.5 mmol/L lower than serum values. Performed By: #### L AB15 ####Escort Vehicle Driver: MUSHTAQ MAGUIRE ([id number])[facility] [place] (SBHLAB)[address] [place] [address] [place] Sodium [Moles/Vol] 139 mmol/L Normal 136-145 [facility] Comment on above: Performed By: #### L [id number] ####Escort Vehicle Driver: MUSHTAQ MAGUIRE ([id number])[facility] (SBHLAB)[address] [place] [address] [place] Urea nitrogen [Mass/Vol] 35 mg/dL High 9-23 [facility] Comment on above: Performed By: #### L [id number] ####Escort Vehicle Driver: MUSHTAQ MAGUIRE ([id number])[facility] [place] (SBHLAB)[address] [place] [address] Basic metabolic 1998 panelon 09-23-2024 Anion gap [Moles/Vol] 9 mmol/L 3 - 13 mmol/L [facility] Calcium [Mass/Vol] 9 mg/dL 8.8 - 10. 0 mg/dL [facility] Chloride [Moles/Vol] 111 mmol/L High 98 - 10 7 mmol/L [facility] CO2 [Moles/Vol] 19 mmol/L Low 23 - 31 mmol/L [facility] Creatinine [Mass/Vol] 1.08 mg/dL 0.57 - 1.11 mg/dL [facility] GFR/1.73 sq M.predicted (S/P/Bld) [Vol rate/Area] 50.4 mL/min Low - PINF [facility] Comment on above: Calculation based on the Chronic Kidney Disease Epidemiology Collaboration (CKD-EPI) equation refit without adjustment for race Glucose [Mass/Vol] 255 mg/dL High 82 - 115 mg/dL [facility] Interpretation and review of laboratory results Abnormal [facility] Potassium [Moles/Vol] 4.3 mmol/L 3.5 - 5.1 mmol/L [facility] Comment on above: Plasma potassium ashley ues may be up to 0.5 mmol/L lower than serum values. Sodium [Moles/Vol] 139 mmol/L 136 - 145 mmol/L [facility] Urea nitrogen [Mass/Vol] 35 mg/dL High 9 - 23 mg/dL [facility] CBC W Auto Differential pane l (Bld)Ordered By: Olayinka Du on 09-23-2024 Basophils (Bld) [#/Vol] 0 10*3/uL 0.0 - 0.2 10*3/uL [facility] Basophils/100 WBC (Bld) 0.5 % 0.0 - 2.0 % [facility] Eosinophils (Bld) [#/Vol] 0.3 10*3/uL 0.0 - 0.5 10*3/uL [facility] Eosinophils/100 WBC (Bld) 4.2 % 0.0 - 6.0 % [facility] Erythrocyte distribution width (RBC) [Ratio] 13.6 % 11.5 - 15.0 % [facility] Hematocrit (Bld) [Volume fraction] 37.3 % 35.0 - 47.0 % [facility] Hemoglobin (Bld) [Mass/Vol] 11.7 g/dL 11.7 - 16.0 g/dL [facility] Immature granulocytes (Bld) [#/Vol] 0 10*3/uL NINF - 0.1 10*3/uL [facility] Immature granulocytes/100 WBC (Bld) 0.3 % 0.0 - 2.0 % [facility] Interpretation and review of laboratory results Normal [facility] Lymphocytes (Bld) [#/Vol] 2 10*3/uL 1.0 - 4.3 10*3/uL [facility] Lymphocytes/100 WBC (Bld) 30.5 % 15.0 - 45.0 % [facility] MCH (RBC) [Entitic mass] 30.2 pg 26.0 - 34.0 pg [facility] MCHC (RBC) [Mass/Vol] 31.4 % 30.5 - 36.0 % [facility] MCV (RBC) [Entitic vol] 96.1 fL 77.0 - 99.0 fL [facility] Monocytes (Bld) [#/Vol] 0.7 10*3/uL 0.0 - 0.9 10*3/uL [facility] Monocytes/100 WBC (Bld) 10.5 % 5.0 - 13.0 % [facility] Neutrophils (Bld) [#/Vol] 3.6 10*3/uL 1.8 - 7.5 10*3/uL [facility] Neutrophils/100 WBC (Bld) 54 % 38.0 - 82.0 % [facility] Nucleated RBC/100 WBC (Bld) [Ratio] 0 % [facility] Platelet mean volume (Bld) [Entitic vol] 11.2 fL 9.0 - 12.7 fL [facility] Platelets (Bld) [#/Vol] 229 10*3/uL 140 - 440 10*3/uL [facility] RBC (Bld) [#/Vol] 3.88 10*6/uL 3.80 - 5.20 10*6/uL [facility] WBC (Bld) [#/Vol] 6.7 10*3/uL 3.6 - 10.7 10*3/uL [facility] CBC WITH AUTO DIFFERENTIALon 09-23-2024 Basophils (Bld) [#/Vol] 0.0 10*3/uL Normal 0.0-0.2 [facility] Comment on above: Performed By: #### L [id number] ####Escort Vehicle Driver: MUSHTAQ MAGUIRE ([id number])[facility] [place] (SBHLAB)[address] Basophils/100 WBC (Bld) 0.5 % Normal 0.0-2.0 [facility] Comment on above: Performed By: #### L [id number] ####Escort Vehicle Driver: MUSHTAQ MAGUIRE ([id number])[facility] [place] [address] Eosinophils (Bld) [#/Vol] 0.3 10*3/uL Normal 0.0-0.5 [facility] Comment on above: Performed By: #### L [id number] ####Escort Vehicle Driver: MUSHTAQ MAGUIRE ([id number])[facility] (SBAB)[address] [place] [address] Eosinophils/100 WBC (Bld) 4.2 % Normal 0.0-6.0 [facility] Comment on above: Performed By: #### L [id number] ####Escort Vehicle Driver: MUSHTAQ MAGUIRE ([id number])[facility] ([facility])[address] Erythrocyte distribution width (RBC) [Ratio] 13.6 % Normal 11.5-15.0 [facility] Comment on above: Performed By: #### L [id number] ####Escort Vehicle Driver: MUSHTAQ MAGUIRE ([id number])[facility] ([facility] [place] [address] Hematocrit (Bld) [Volume fraction] 37.3 % Normal 35.0-47.0 [facility] Comment on above: Performed By: #### L [id number] ####Escort Vehicle Driver: MUSHTAQ MAGUIRE ([id number])[facility]ENTER[facility] [place] (SBAB)[address] Hemoglobin (Bld) [Mass/Vol] 11.7 g/dL Normal 11.7-16.0 [facility] Comment on above: Performed By: #### L [id number] ####Escort Vehicle Driver: MUSHTAQ MAGUIRE ([id number])[facility] ([facility] IMMATURE GRANS % 0.3 % Normal 0.0-2.0 [facility] Comment on above: Performed By: #### L [id number] ####Escort Vehicle Driver: MUSHTAQ MAGUIRE ([id number])[facility] ([facility])[address] [place] [address] IMMATURE GRANS ABSOLUTE 0.0 10*3/uL Normal <0.1 [facility] Comment on above: Performed By: #### L [id number] ####Escort Vehicle Driver: MUSHTAQ OMALLEYDIANA ([id number])[facility] ([facility])[address] [place] [address] Lymphocytes (Bld) [#/Vol] 2.0 10*3/uL Normal 1.0-4.3 [facility] Comment on above: Performed By: #### L [id number] ####Escort Vehicle Driver: MUSHTAQ MAGUIRE ([id number])[facility] ([facility] [place] [address] Lymphocytes/100 WBC (Bld) 30.5 % Normal 15.0-45.0 [facility] Comment on above: Performed By: #### L [id number] ####Escort Vehicle Driver: MUSHTAQ MAGUIRE ([id number])[facility] ([facility])[address] [place] [address] MCH (RBC) [Entitic mass] 30.2 pg Normal 26.0-34.0 [facility] Comment on above: Performed By: #### L [id number] ####Escort Vehicle Driver: MUSHTAQ MAGUIRE ([id number])[facility] [place] (SBHLAB)[address] MCHC 31.4 % Normal 30.5-36.0 [facility] Comment on above: Performed By: #### L [id number] ####Escort Vehicle Driver: MUSHTAQ MAGUIRE ([id number])[facility] [place] (SBHLAB)[address] MCV (RBC) [Entitic vol] 96.1 fL Normal 77.0-99.0 [facility] Comment on above: Performed By: #### L [id number] ####Escort Vehicle Driver: MUSHTAQ MAGUIRE ([id number])[facility] [place] (SBHLAB)[address] Monocytes (Bld) [#/Vol] 0.7 10*3/uL Normal 0.0-0.9 [facility] Comment on above: Performed By: #### L [id number] ####Escort Vehicle Driver: MUSHTAQ MAGUIRE ([id number])[facility] [place] (SBHLAB)[address] Monocytes/100 WBC (Bld) 10.5 % Normal 5.0-13.0 [facility] Comment on above: Performed By: #### L [id number] ####Escort Vehicle Driver: MUSHTAQ MAGUIRE ([id number])[facility] [place] (SBHLAB)[address] NEUTROPHILS ABSOLUTE 3.6 10*3/uL Normal 1.8-7.5 [facility] Comment on above: Performed By: #### L [id number] ####Escort Vehicle Driver: MUSHTAQ MAGUIRE ([id number])[facility] [place] (SBHLAB)[address] Neutrophils/100 WBC (Bld) 54.0 % Normal 38.0-82.0 [facility] Comment on above: Performed By: #### L [id number] ####Escort Vehicle Driver: MUSHTAQ MAGUIRE ([id number])[facility] [place] (SBHLAB)[address] NRBC 0.0 /100 WBCs Normal 0.0-2.0 [facility] Comment on above: Performed By: #### L [id number] ####Escort Vehicle Driver: MUSHTAQ MAGUIRE ([id number])[facility] [place] (SBHLAB)[address] Platelet mean volume (Bld) [Entitic vol] 11.2 fL Normal 9.0-12.7 [facility] Comment on above: Performed By: #### L [id number] ####Escort Vehicle Driver: MUSHTAQ MAGUIRE ([id number])[facility] [place] (SBHLAB)[address] Platelets (Bld) [#/Vol] 229 10*3/uL Normal 140-440 [facility] Comment on above: Performed By: #### L [id number] ####Escort Vehicle Driver: MUSHTAQ MAGUIRE ([id number])[facility] [place] (SBHLAB)[address] RBC (Bld) [#/Vol] 3.88 10*6/uL Normal 3.80-5.20 [facility] Comment on above: Performed By: #### L [id number] ####Escort Vehicle Driver: MUSHTAQ MAGUIRE ([id number])[facility] [place] (SBHLAB)[address] [place] [address] [place] WBC (Bld) [#/Vol] 6.7 10*3/uL Normal 3.6-10.7 [facility] Comment on above: Performed By: #### L [id number] ####Escort Vehicle Driver: MUSHTAQ MAGUIRE ([id number])[facility] [place] (SBHLAB)[address] Laboratory - Chemistry and C hemistry - challengeon 09-23-2024 Glucose [Mass/Vol] 229 mg/dL High 70 - 100 mg/dL [facility] Glucose [Mass/Vol] 186 mg/dL High 70 - 100 mg/dL [facility] Glucose [Mass/Vol] 294 mg/dL High 70 - 100 mg/dL [facility] Glucose [Mass/Vol] 241 mg/dL High 70 - 100 mg/dL [facility] No Panel Informationon 09-23 Interpretation and review of laboratory results Abnormal [facility] Performed by: [facility], [address], [facility] [address] CLIA ID: [id number] [facility] Interpretation and review of laboratory results Abnormal [facility] Performed by: [facility], [address], [facility] [address] CLIA ID: [id number] [facility] Interpretation and review of laboratory results Abnormal [facility] Performed by: [facility], [address], [facility] [address] CLIA ID: [id number] [facility] Interpretation and review of laboratory results Abnormal [facility] Performed by: [facility], [address] [facility], [facility] [address] CLIA ID: [id number] [facility] Progress Noteon 09-23-2024 Progress Note Normal [facility] Progress Note Normal [facility] Progress Note Normal [facility] Progress Note Normal [facility] Progress Note Normal [facility] 25-hydroxyvitamin D3 [Mass/V ol]on 09-22-2024 Interpretation and review of laboratory results Abnormal [facility] Target concentration : 30 - 40 ng/mL; toxicity seen at concentrations >100 ng/mL Therapy is based on measurement of Total 25-OHD with the following classification levels: Less than 20 ng/mL: Indicative of Vit D deficiency 20-30 ng/mL: Suggests Vit D insufficiency Optimal: Greater than or equal to 30 ng/mL Test performed by [email or web address] Competitive Immunoassay, measuring Total Vitamin D, not individual fractions. [facility] 30on 09-22-2024 30 Normal [facility] BASIC METABOLIC PANELon 09-12 Anion gap [Moles/Vol] 10 mmol/L Normal 3-13 [facility] Comment on above: Performed By: #### L [id number] ####Escort Vehicle Driver: MUSHTAQ MAGUIRE ([id number])RODRIGO HSIEH (SBHLAB)[address] Calcium [Mass/Vol] 8.9 mg/dL Normal 8.8-10.0 [facility] Comment on above: Performed By: #### L AB15 ####Escort Vehicle Driver: MUSHTAQ MAGUIRE ([id number])[facility]ENTER[facility] [place] (SBHLAB)[address] [place] [address] [place] Chloride [Moles/Vol] 108 mmol/L High 98-107 [facility] Comment on above: Performed By: #### L AB15 ####Escort Vehicle Driver: MUSHTAQ MAGUIRE ([id number])[facility]ENTERJuliana [facility]ILLA [facility] (SBHLAB)[address] CO2 [Moles/Vol] 21 mmol/L Low 23-31 [facility] Comment on above: Performed By: #### L AB15 ####Escort Vehicle Driver: MUSHTAQ MAGUIRE ([id number])[facility]ENTERJul[facility] [place]ONBAN[place] (SBHLAB)[address] Creatinine [Mass/Vol] 1.04 mg/dL Normal 0.57-1.11 [facility] Comment on above: Performed By: #### L AB15 ####Escort Vehicle Driver: MUSHTAQ MAGUIRE ([id number])[facility]ENTER[facility] [place] (SBHLAB)[address] GLOMERULAR FILTRATION RATE ML/MIN/1.73 SQ M.PREDICTED 52.8 mL/min/1.73m*2 Low >60.0 [facility] Comment on above: Result Comment: Calc ulation based on the Chronic Kidney Disease Epidemiology Collaboration (CKD-EPI) equation refit without adjustment for race Performed By: #### L AB15 ####Escort Vehicle Driver: MUSHTAQ MAGUIRE ([id number])[facility]ENTERJuliana [facility]ONMESILLA [facility] (SBHLAB)[address] [place] [address] [place] Glucose [Mass/Vol] 224 mg/dL High 82-115 [facility] Comment on above: Performed By: #### L AB15 ####Escort Vehicle Driver: MUSHTAQ [id number])[facility]ENTERJuliana [facility]ONMESILLA [facility] (SBHLAB)[address] Potassium [Moles/Vol] 4.3 mmol/L Normal 3.5-5.1 [facility] Comment on above: Result Comment: [facility] potassium values may be up to 0.5 mmol/L lower than serum values. Performed By: #### L AB15 ####Escort Vehicle Driver: MUSHTAQ MAGUIRE ([id number])[facility] (SBHLAB)[address] Sodium [Moles/Vol] 139 mmol/L Normal 136-145 [facility] Comment on above: Performed By: #### L AB15 ####Escort Vehicle Driver: MUSHTAQ MAGUIRE ([id number])[facility] (SBHLAB)[address] [place] [address] Urea nitrogen [Mass/Vol] 29 mg/dL High 9-23 [facility] Comment on above: Performed By: #### L AB15 ####Escort Vehicle Driver: MUSHTAQ MAGUIRE ([id number])[facility] (SBHLAB)[address] [place] [address] Basic metabolic 1998 panelon 09-22-2024 Anion gap [Moles/Vol] 10 mmol/L 3 - 13 mmol/L [facility] Calcium [Mass/Vol] 8.9 mg/dL 8.8 - 10. 0 mg/dL [facility] [employer] Chloride [Moles/Vol] 108 mmol/L High 98 - 10 7 mmol/L [facility] [employer] CO2 [Moles/Vol] 21 mmol/L Low 23 - 31 mmol/L [facility] Creatinine [Mass/Vol] 1.04 mg/dL 0.57 - 1.11 mg/dL [facility] [employer] GFR/1.73 sq M.predicted (S/P/Bld) [Vol rate/Area] 52.8 mL/min Low - PINF [facility] Comment on above: Calculation based on the Chronic Kidney Disease Epidemiology Collaboration (CKD-EPI) equation refit without adjustment for race Glucose [Mass/Vol] 224 mg/dL High 82 - 115 mg/dL [facility] Interpretation and review of laboratory results Abnormal [facility] Potassium [Moles/Vol] 4.3 mmol/L 3.5 - 5.1 mmol/L [facility] Comment on above: Plasma potassium ashley ues may be up to 0.5 mmol/L lower than serum values. Sodium [Moles/Vol] 139 mmol/L 136 - 145 mmol/L [facility] Urea nitrogen [Mass/Vol] 29 mg/dL High 9 - 23 mg/dL [facility] CBC W Auto Differential pane l (Bld)on 09-22-2024 Basophils (Bld) [#/Vol] 0 10*3/uL 0.0 - 0.2 10*3/uL [facility] Basophils/100 WBC (Bld) 0.4 % 0.0 - 2.0 % [facility] Eosinophils (Bld) [#/Vol] 0.3 10*3/uL 0.0 - 0.5 10*3/uL [facility] Eosinophils/100 WBC (Bld) 4.3 % 0.0 - 6.0 % [facility] Erythrocyte distribution width (RBC) [Ratio] 13.7 % 11.5 - 15.0 % [facility] Hematocrit (Bld) [Volume fraction] 38.1 % 35.0 - 47.0 % [facility] Hemoglobin (Bld) [Mass/Vol] 12.2 g/dL 11.7 - 16.0 g/dL [facility] Immature granulocytes (Bld) [#/Vol] 0 10*3/uL NINF - 0.1 10*3/uL [facility] Immature granulocytes/100 WBC (Bld) 0.4 % 0.0 - 2.0 % [facility] Interpretation and review of laboratory results Normal [facility] Lymphocytes (Bld) [#/Vol] 2 10*3/uL 1.0 - 4.3 10*3/uL [facility] Lymphocytes/100 WBC (Bld) 28.9 % 15.0 - 45.0 % [facility] MCH (RBC) [Entitic mass] 30.7 pg 26.0 - 34.0 pg [facility] MCHC (RBC) [Mass/Vol] 32 % 30.5 - 36.0 % [facility] MCV (RBC) [Entitic vol] 96 fL 77.0 - 99.0 fL [facility] Monocytes (Bld) [#/Vol] 0.7 10*3/uL 0.0 - 0.9 10*3/uL [facility] Monocytes/100 WBC (Bld) 9.6 % 5.0 - 13.0 % [facility] Neutrophils (Bld) [#/Vol] 3.9 10*3/uL 1.8 - 7.5 10*3/uL [facility] Neutrophils/100 WBC (Bld) 56.4 % 38.0 - 82.0 % [facility] Nucleated RBC/100 WBC (Bld) [Ratio] 0 % [facility] Platelet mean volume (Bld) [Entitic vol] 11 fL 9.0 - 12.7 fL [facility] Platelets (Bld) [#/Vol] 225 10*3/uL 140 - 440 10*3/uL [facility] RBC (Bld) [#/Vol] 3.97 10*6/uL 3.80 - 5.20 10*6/uL [facility] WBC (Bld) [#/Vol] 7 10*3/uL 3.6 - 10.7 10*3/uL [facility] CBC WITH AUTO DIFFERENTIALon 09-22-2024 Basophils (Bld) [#/Vol] 0.0 10*3/uL Normal 0.0-0.2 [facility] Comment on above: Performed By: #### L [id number] ####Escort Vehicle Driver: MUSHTAQ MAGUIRE ([id number])[facility] ([facility])[address] [place] [address] Basophils/100 WBC (Bld) 0.4 % Normal 0.0-2.0 [facility] Comment on above: Performed By: #### L [id number] ####Escort Vehicle Driver: MUSHTAQ MAGUIRE ([id number])[facility] ([facility])[address] Eosinophils (Bld) [#/Vol] 0.3 10*3/uL Normal 0.0-0.5 [facility] Comment on above: Performed By: #### L [id number] ####Escort Vehicle Driver: MUSHTAQ MAGUIRE ([id number])[facility] ([facility] [place] [address] [place] Eosinophils/100 WBC (Bld) 4.3 % Normal 0.0-6.0 [facility] Comment on above: Performed By: #### L [id number] ####Escort Vehicle Driver: MUSHTAQ MAGUIRE ([id number])[facility] [place] ([facility])[address] Erythrocyte distribution width (RBC) [Ratio] 13.7 % Normal 11.5-15.0 [facility] Comment on above: Performed By: #### L [id number] ####Escort Vehicle Driver: MUSHTAQ OMALLEYDIANA ([id number])[facility] [place] ([place])[address] Hematocrit (Bld) [Volume fraction] 38.1 % Normal 35.0-47.0 [facility] Comment on above: Performed By: #### L [id number] ####Escort Vehicle Driver: MUSHTAQ MAGUIRE ([id number])[facility] ([facility])[address] Hemoglobin (Bld) [Mass/Vol] 12.2 g/dL Normal 11.7-16.0 [facility] Comment on above: Performed By: #### L [id number] ####Escort Vehicle Driver: MUSHTAQ OMALLEYDIANA ([id number])[facility] ([facility])[address] [place] [address] IMMATURE GRANS % 0.4 % Normal 0.0-2.0 [facility] Comment on above: Performed By: #### L [id number] ####Escort Vehicle Driver: MUSHTAQ MAGUIRE ([id number])[facility] ([facility])[address] IMMATURE GRANS ABSOLUTE 0.0 10*3/uL Normal <0.1 [facility] Comment on above: Performed By: #### L [id number] ####Escort Vehicle Driver: MUSHTAQ MAGUIRE ([id number])[facility] ([facility])[address] Lymphocytes (Bld) [#/Vol] 2.0 10*3/uL Normal 1.0-4.3 [facility] Comment on above: Performed By: #### L [id number] ####Escort Vehicle Driver: MUSHTAQYVON MAGUIRE ([id number])[facility] [place] (SBHLAB)[address] Lymphocytes/100 WBC (Bld) 28.9 % Normal 15.0-45.0 [facility] Comment on above: Performed By: #### L [id number] ####Escort Vehicle Driver: MUSHTAQ MAGUIRE ([id number])[facility] [place] (SBHL[facility])[address] MCH (RBC) [Entitic mass] 30.7 pg Normal 26.0-34.0 [facility] Comment on above: Performed By: #### L [id number] ####Escort Vehicle Driver: MUSHTAQYVON MAGUIRE ([id number])[facility] ([facility])[address] MCHC 32.0 % Normal 30.5-36.0 [facility] Comment on above: Performed By: #### L [id number] ####Escort Vehicle Driver: MUSHTAQ ANDREZ ([id number])[facility] [place] (SBHL[facility])[address] MCV (RBC) [Entitic vol] 96.0 fL Normal 77.0-99.0 [facility] Comment on above: Performed By: #### L [id number] ####Escort Vehicle Driver: MUSHTAQ ANDREZ ([id number])[facility] [place] (SB[facility])[address] Monocytes (Bld) [#/Vol] 0.7 10*3/uL Normal 0.0-0.9 [facility] Comment on above: Performed By: #### L [id number] ####Escort Vehicle Driver: MUSHTAQ ANDREZ ([id number])[facility] [place] (SB[facility])[address] Monocytes/100 WBC (Bld) 9.6 % Normal 5.0-13.0 [facility] Comment on above: Performed By: #### L [id number] ####Escort Vehicle Driver: MUSHTAQ MAGUIRE ([id number])[facility] [place] (SB[facility])[address] NEUTROPHILS ABSOLUTE 3.9 10*3/uL Normal 1.8-7.5 [facility] Comment on above: Performed By: #### L [id number] ####Escort Vehicle Driver: MUSHTAQ MAGUIRE ([id number])[facility] [place] (SB[facility])[address] Neutrophils/100 WBC (Bld) 56.4 % Normal 38.0-82.0 [facility] Comment on above: Performed By: #### L [id number] ####Escort Vehicle Driver: MUSHTAQ MAGUIRE ([id number])[facility] [place] (SB[facility])[address] NRBC 0.0 /100 WBCs Normal 0.0-2.0 [facility] Comment on above: Performed By: #### L [id number] ####Escort Vehicle Driver: MUSHTAQ MAGUIRE ([id number])[facility] [place] ([facility])[address] Platelet mean volume (Bld) [Entitic vol] 11.0 fL Normal 9.0-12.7 [facility] Comment on above: Performed By: #### L [id number] ####Escort Vehicle Driver: MUSHTAQ MAGUIRE ([id number])[facility] [place] (SBHL[facility])[address] [place] [address] [place] Platelets (Bld) [#/Vol] 225 10*3/uL Normal 140-440 [facility] Comment on above: Performed By: #### L [id number] ####Escort Vehicle Driver: MUSHTAQ MAGUIRE ([id number])[facility] [place] ([facility])[address] [place] [address] [place] RBC (Bld) [#/Vol] 3.97 10*6/uL Normal 3.80-5.20 [facility] Comment on above: Performed By: #### L [id number] ####Escort Vehicle Driver: MUSHTAQ MAGUIRE ([id number])[facility]ENTER[facility] H[facility] (SBHLAB)[address] [place] [address] WBC (Bld) [#/Vol] 7.0 10*3/uL Normal 3.6-10.7 [facility] Comment on above: Performed By: #### L [id number] ####Escort Vehicle Driver: MUSHTAQ MAGUIRE ([id number])[facility]ENTER[facility] (SBHLAB)[address] [place] [address] Consulton 09-22-2024 Consult Normal [facility] Laboratory - Chemistry and C hemistry - challengeon 09-22-2024 Glucose [Mass/Vol] 211 mg/dL High 70 - 100 mg/dL [facility] Glucose [Mass/Vol] 281 mg/dL High 70 - 100 mg/dL [facility] [employer] Glucose [Mass/Vol] 320 mg/dL High 70 - 100 mg/dL [facility] Glucose [Mass/Vol] 310 mg/dL High 70 - 100 mg/dL [facility] Glucose [Mass/Vol] 268 mg/dL High 70 - 100 mg/dL [facility] 25-hydroxyvitamin D3 [Mass/Vol] 18 ng/mL Low 20 - PINF ng/mL [facility] No Panel Informationon 09-22 Interpretation and review of laboratory results Abnormal [facility] Performed by: [facility], [address] [place] [address] CLIA ID: [id number] [facility] Interpretation and review of laboratory results Abnormal [facility] Performed by: [facility], [address] [place] [address] CLIA ID: [id number] [facility] Interpretation and review of laboratory results Abnormal [facility] Performed by: [facility], [address] [place] [address] CLIA ID: [id number] [facility] Interpretation and review of laboratory results Abnormal [facility] Performed by: [facility], [address] [place] [address] CLIA ID: [id number] [facility] Interpretation and review of laboratory results Abnormal [facility] Performed by: [facility], [address] [place] [address] CLIA ID: [id number] [facility] Progress Noteon 09-22-2024 Progress Note Normal [facility] Progress Note Normal [facility] Progress Note Normal [facility] Progress Note Normal [facility] VITAMIN D DEFICIENCY SCREENI NG (VIT D 25)on 09-22-2024 VIT D 25-OH, TOTAL 18 ng/mL Low >20 [facility] Comment on above: Result Comment: ORDE R COMMENTS:Target concentration: 30 - 40 ng/mL; toxicity seen at concentrations >100 ng/mLTherapy is based on measurement of Total 25-OHD with the following classification levels:Less than 20 ng/mL: Indicative of Vit D [id number] ng/mL: Suggests Vit D insufficiencyOptimal: Greater than or equal to 30 ng/mLTest performed by [email or web address] Competitive Immunoassay, measuring Total Vitamin D, not individual fractions. Performed By: #### L [id number] ####Escort Vehicle Driver: MUSHTAQ MAGUIRE ([id number])[facility] [place] ([place])[address] [place] [address] [id number] 09-21-2024 [id number] Normal [facility] 36on 09-21-2024 36 Can we see if patien t would qualify for Javier 3 Plus. Patient is on Medicare and starting insulin 1 injection daily. Thanks! Normal [facility] BASIC METABOLIC PANELon 09-12 Anion gap [Moles/Vol] 9 mmol/L Normal 3-13 [facility] Comment on above: Performed By: #### L AB129, LAB67, LAB15 ####Escort Vehicle Driver: MUSHTAQ MAGUIRE ([id number])[facility] [place] (SBHLAB)[address] Calcium [Mass/Vol] 8.6 mg/dL Low 8.8-10.0 [facility] Comment on above: Performed By: #### L AB129, LAB67, LAB15 ####Escort Vehicle Driver: MUSHTAQ MAGUIRE ([id number])[facility]ENTERJuliana ABURTOGloria (SBHLAB)[address] [place] [address] [place] Chloride [Moles/Vol] 108 mmol/L High 98-107 [facility] Comment on above: Performed By: #### L AB129, LAB67, LAB15 ####Escort Vehicle Driver: MUSHTAQ MAGUIRE ([id number])[facility]ENTERJuliana [facility] (SB[facility])[address] CO2 [Moles/Vol] 19 mmol/L Low 23-31 [facility] Comment on above: Performed By: #### L AB129, LAB67, LAB15 ####Escort Vehicle Driver: MUSHTAQ MAGUIRE ([id number])[facility]ENTERJuliana MAGALLONMESILLA VALLEY HOSPITALGloria (SBHLAB)[address] Creatinine [Mass/Vol] 1.04 mg/dL Normal 0.57-1.11 [facility] Comment on above: Performed By: #### L AB129, LAB67, LAB15 ####Escort Vehicle Driver: MUSHTAQ MAGUIRE ([id number])[facility]ENTER[facility] [place] (SBHLAB)[address] [place] [address] [place] GLOMERULAR FILTRATION RATE ML/MIN/1.73 SQ M.PREDICTED 52.8 mL/min/1.73m*2 Low >60.0 [facility] Comment on above: Result Comment: Calc ulation based on the Chronic Kidney Disease Epidemiology Collaboration (CKD-EPI) equation refit without adjustment for race Performed By: #### L AB129, LAB67, LAB15 ####Escort Vehicle Driver: MUSHTAQ MAGUIRE ([id number])[facility]ENTERJuliana MAGALLONSHEBAN (SBHLAB)[address] [place] [address] [place] Glucose [Mass/Vol] 265 mg/dL High 82-115 [facility] Comment on above: Performed By: #### L AB129, LAB67, LAB15 ####Escort Vehicle Driver: MUSHTAQ MAGUIRE ([id number])[facility]ENTER[facility] [place] (SBHLAB)[address] [place] [address] [place] Potassium [Moles/Vol] 4.3 mmol/L Normal 3.5-5.1 [facility] Comment on above: Result Comment: [facility] potassium values may be up to 0.5 mmol/L lower than serum values. Performed By: #### L AB129, LAB67, LAB15 ####Escort Vehicle Driver: MUSHTAQ MAGUIRE ([id number])[facility] (SBHL[facility])[address] Sodium [Moles/Vol] 136 mmol/L Normal 136-145 [facility] Comment on above: Performed By: #### L AB129, LAB67, LAB15 ####Escort Vehicle Driver: MUSHTAQ MAGUIRE ([id number])[facility] (SBHL[facility])[address] [place] [address] Urea nitrogen [Mass/Vol] 29 mg/dL High 9-23 [facility] Comment on above: Performed By: #### L AB129, LAB67, LAB15 ####Escort Vehicle Driver: MUSHTAQ MAGUIRE ([id number])[facility] ([facility])[address] [place] [address] Basic metabolic 1998 panelon 09-21-2024 Anion gap [Moles/Vol] 9 mmol/L 3 - 13 mmol/L [facility] Calcium [Mass/Vol] 8.6 mg/dL Low 8.8 - 10. 0 mg/dL [facility] Chloride [Moles/Vol] 108 mmol/L High 98 - 10 7 mmol/L [facility] CO2 [Moles/Vol] 19 mmol/L Low 23 - 31 mmol/L [facility] Creatinine [Mass/Vol] 1.04 mg/dL 0.57 - 1.11 mg/dL [facility] GFR/1.73 sq M.predicted (S/P/Bld) [Vol rate/Area] 52.8 mL/min Low - PINF [facility] Comment on above: Calculation based on the Chronic Kidney Disease Epidemiology Collaboration (CKD-EPI) equation refit without adjustment for race Glucose [Mass/Vol] 265 mg/dL High 82 - 115 mg/dL [facility] Interpretation and review of laboratory results Abnormal [facility] Potassium [Moles/Vol] 4.3 mmol/L 3.5 - 5.1 mmol/L [facility] Comment on above: Plasma potassium ashley ues may be up to 0.5 mmol/L lower than serum values. Sodium [Moles/Vol] 136 mmol/L 136 - 145 mmol/L [facility] Urea nitrogen [Mass/Vol] 29 mg/dL High 9 - 23 mg/dL [facility] CBC W Auto Differential pane l (Bld)on 09-21-2024 Basophils (Bld) [#/Vol] 0 10*3/uL 0.0 - 0.2 10*3/uL [facility] Basophils/100 WBC (Bld) 0.5 % 0.0 - 2.0 % [facility] Eosinophils (Bld) [#/Vol] 0.2 10*3/uL 0.0 - 0.5 10*3/uL [facility] Eosinophils/100 WBC (Bld) 2.9 % 0.0 - 6.0 % [facility] Erythrocyte distribution width (RBC) [Ratio] 13.3 % 11.5 - 15.0 % [facility] Hematocrit (Bld) [Volume fraction] 36.5 % 35.0 - 47.0 % [facility] Hemoglobin (Bld) [Mass/Vol] 11.7 g/dL 11.7 - 16.0 g/dL [facility] Immature granulocytes (Bld) [#/Vol] 0 10*3/uL NINF - 0.1 10*3/uL [facility] Immature granulocytes/100 WBC (Bld) 0.5 % 0.0 - 2.0 % [facility] Interpretation and review of laboratory results Normal [facility] Lymphocytes (Bld) [#/Vol] 1.7 10*3/uL 1.0 - 4.3 10*3/uL [facility] Lymphocytes/100 WBC (Bld) 21.6 % 15.0 - 45.0 % [facility] MCH (RBC) [Entitic mass] 30.8 pg 26.0 - 34.0 pg [facility] MCHC (RBC) [Mass/Vol] 32.1 % 30.5 - 36.0 % [facility] MCV (RBC) [Entitic vol] 96.1 fL 77.0 - 99.0 fL [facility] Monocytes (Bld) [#/Vol] 0.8 10*3/uL 0.0 - 0.9 10*3/uL [facility] Monocytes/100 WBC (Bld) 10.2 % 5.0 - 13.0 % [facility] Neutrophils (Bld) [#/Vol] 5 10*3/uL 1.8 - 7.5 10*3/uL [facility] Neutrophils/100 WBC (Bld) 64.3 % 38.0 - 82.0 % [facility] Nucleated RBC/100 WBC (Bld) [Ratio] 0 % [facility] Platelet mean volume (Bld) [Entitic vol] 11.3 fL 9.0 - 12.7 fL [facility] Platelets (Bld) [#/Vol] 222 10*3/uL 140 - 440 10*3/uL [facility] RBC (Bld) [#/Vol] 3.8 10*6/uL 3.80 - 5.20 10*6/uL [facility] WBC (Bld) [#/Vol] 7.8 10*3/uL 3.6 - 10.7 10*3/uL [facility] CBC WITH AUTO DIFFERENTIALon 09-21-2024 Basophils (Bld) [#/Vol] 0.0 10*3/uL Normal 0.0-0.2 [facility] Comment on above: Performed By: #### L [id number] ####Escort Vehicle Driver: MUSHTAQ MAGUIRE ([id number])[facility] ([facility])[address] [place] [address] Basophils/100 WBC (Bld) 0.5 % Normal 0.0-2.0 [facility] Comment on above: Performed By: #### L [id number] ####Escort Vehicle Driver: MUSHTAQ MAGUIRE ([id number])[facility] ([facility])[address] Eosinophils (Bld) [#/Vol] 0.2 10*3/uL Normal 0.0-0.5 [facility] Comment on above: Performed By: #### L [id number] ####Escort Vehicle Driver: MUSHTAQ MAGUIRE ([id number])[facility] ([facility])[address] [place] [address] [place] Eosinophils/100 WBC (Bld) 2.9 % Normal 0.0-6.0 [facility] Comment on above: Performed By: #### L [id number] ####Escort Vehicle Driver: MUSHTAQ OMALLEYDIANA ([id number])[facility] [place] (SBHL[facility])[address] Erythrocyte distribution width (RBC) [Ratio] 13.3 % Normal 11.5-15.0 [facility] Comment on above: Performed By: #### L [id number] ####Escort Vehicle Driver: MUSHTAQ XIEJOAN ([id number])[facility] ([facility])[address] Hematocrit (Bld) [Volume fraction] 36.5 % Normal 35.0-47.0 [facility] Comment on above: Performed By: #### L [id number] ####Escort Vehicle Driver: MUSHTAQ OMALLEYDIANA ([id number])[facility] ([facility])[address] Hemoglobin (Bld) [Mass/Vol] 11.7 g/dL Normal 11.7-16.0 [facility] Comment on above: Performed By: #### L [id number] ####Escort Vehicle Driver: MUSHTAQ OMALLEYDIANA ([id number])[facility] ([facility])[address] [place] [address] IMMATURE GRANS % 0.5 % Normal 0.0-2.0 [facility] Comment on above: Performed By: #### L [id number] ####Escort Vehicle Driver: MUSHTAQ OMALLEYDIANA ([id number])[facility] (SB[facility])[address] IMMATURE GRANS ABSOLUTE 0.0 10*3/uL Normal <0.1 [facility] Comment on above: Performed By: #### L [id number] ####Escort Vehicle Driver: MUSHTAQ MAGUIRE ([id number])[facility] (SB[facility])[address] Lymphocytes (Bld) [#/Vol] 1.7 10*3/uL Normal 1.0-4.3 [facility] Comment on above: Performed By: #### L [id number] ####Escort Vehicle Driver: MUSHTAQ ANDREZ ([id number])[facility] [place] (SBHLAB)[address] Lymphocytes/100 WBC (Bld) 21.6 % Normal 15.0-45.0 [facility] Comment on above: Performed By: #### L [id number] ####Escort Vehicle Driver: MUSHTAQ ANDREZ ([id number])[facility] [place] ([facility])[address] MCH (RBC) [Entitic mass] 30.8 pg Normal 26.0-34.0 [facility] Comment on above: Performed By: #### L [id number] ####Escort Vehicle Driver: MUSHTAQ ANDREZ ([id number])[facility] [place] ([facility])[address] MCHC 32.1 % Normal 30.5-36.0 [facility] Comment on above: Performed By: #### L [id number] ####Escort Vehicle Driver: MUSHTAQ ANDREZ ([id number])[facility] [place] ([facility])[address] MCV (RBC) [Entitic vol] 96.1 fL Normal 77.0-99.0 [facility] Comment on above: Performed By: #### L [id number] ####Escort Vehicle Driver: MUSHTAQ ANDREZ ([id number])[facility] [place] (SBHL[facility])[address] [place] [address] [place] Monocytes (Bld) [#/Vol] 0.8 10*3/uL Normal 0.0-0.9 [facility] Comment on above: Performed By: #### L [id number] ####Escort Vehicle Driver: MUSHTAQ OMALLEYDIANA ([id number])[facility] [place] ([facility])[address] Monocytes/100 WBC (Bld) 10.2 % Normal 5.0-13.0 [facility] Comment on above: Performed By: #### L [id number] ####Escort Vehicle Driver: MUSHTAQ MAGUIRE ([id number])[facility] [place] (SBHLAB)[address] NEUTROPHILS ABSOLUTE 5.0 10*3/uL Normal 1.8-7.5 [facility] Comment on above: Performed By: #### L [id number] ####Escort Vehicle Driver: MUSHTAQ MAGUIRE ([id number])[facility] [place] ([facility]HL[facility])[address] Neutrophils/100 WBC (Bld) 64.3 % Normal 38.0-82.0 [facility] Comment on above: Performed By: #### L [id number] ####Escort Vehicle Driver: MUSHTAQ MAGUIRE ([id number])[facility] [place] ([facility])[address] NRBC 0.0 /100 WBCs Normal 0.0-2.0 [facility] Comment on above: Performed By: #### L [id number] ####Escort Vehicle Driver: MUSHTAQ MAGUIRE ([id number])[facility] [place] ([facility])[address] Platelet mean volume (Bld) [Entitic vol] 11.3 fL Normal 9.0-12.7 [facility] Comment on above: Performed By: #### L [id number] ####Escort Vehicle Driver: MUSHTAQ MAGUIRE ([id number])[facility] [place] ([facility])[address] Platelets (Bld) [#/Vol] 222 10*3/uL Normal 140-440 [facility] Comment on above: Performed By: #### L [id number] ####Escort Vehicle Driver: MUSHTAQ MAGUIRE ([id number])[facility] [place] ([facility])[address] RBC (Bld) [#/Vol] 3.80 10*6/uL Normal 3.80-5.20 [facility] Comment on above: Performed By: #### L [id number] ####Escort Vehicle Driver: MUSHTAQ XIEAlinDIANA ([id number])[facility] (SBHLAB)[address] WBC (Bld) [#/Vol] 7.8 10*3/uL Normal 3.6-10.7 [facility] Comment on above: Performed By: #### L [id number] ####Escort Vehicle Driver: MUSHTAQ MAGUIRE ([id number])[facility] (SBHL[facility])[address] Consulton 09-21-2024 Consult Normal [facility] Consult Normal [facility] Consult Normal [facility] GLUTAMIC ACID DECARBOXYLASE (BKR [facility])on 09-21-2024 [facility] GLUTAMIC ACID DECARBOXYLASE 65 AB <5 Normal <5 [facility] Comment on above: Result Comment: This test was performed using the GAD65 ROSALVA method,which is standardized against the Internationalreference preparation 97/550.Test Performed by [facility],[address] [place] [id number] Rangel M.D., Ph.D., Director of [phone], [facility] [id number] Performed By: #### L AB650, [id number], [id number], [id number] ####[employer] (AMDBEAKER)[address] [place] [address] [place] INSULIN ANTIBODY (BKR [facility]) on 09-21-2024 [facility] INSULIN AUTOANTIBODY <0.4 Normal <0.4 [facility] Comment on above: Result Comment: Test performed by [employer] [address] [place] [address] [employer] Director: Elen Foreman MD,PHD,MBATest Reported by [facility],[address] [place] [id number] W Juan Carlos, M.D., Ph.D., Director of [phone], CLIA [id number] Performed By: #### L AB650, [id number], [id number], [id number] ####[employer] [facility] (AMDBEAKER)[id number] [place], [facility] ISLET CELL ANTIBODY SCREEN W ITH REFLEX TO TITER (BKR QUEST)on 09-21-2024 [employer] ISLET CELL AB SCREEN Negative Normal NEGATIVE [facility] [employer] [facility] Comment on above: Result Comment: This test was developed and its analyticalperformance characteristics have been determinedby [employer]. It has not been cleared orapproved by FDA. This assay has been validatedpursuant to the CLIA regulations and is used forclinical purposes.Test performed by [employer] Restrepo Ogema [id number] [place] [id number] L[employer] Director: Elen Foreman MD,PHD,MBATest Reported by [facility],[employer] [facility],[address] [place] [id number] Rangel M.D., Ph.D., Director of [phone], CLIA [id number] Performed By: #### L [id number], [id number], [id number], [id number] ####[employer] (AMDBEAKER)[id number] [place], [facility] Laboratory - Chemistry and C hemistry - challengeon 09-21-2024 Glucose [Mass/Vol] 200 mg/dL High 70 - 100 mg/dL [facility] Glucose [Mass/Vol] 255 mg/dL High 70 - 100 mg/dL [facility] Cobalamin (Vitamin B12) [Mass/Vol] 332 pg/mL 213 - 816 pg/mL [facility] TSH Qn 3.34 m[IU]/L [facility] Glucose [Mass/Vol] 261 mg/dL High 70 - 100 mg/dL [facility] Glucose [Mass/Vol] 265 mg/dL High 70 - 100 mg/dL [facility] No Panel Informationon 09-21 Interpretation and review of laboratory results Abnormal [facility] Performed by: Rodrigo Estrella, [address] [facility] [address] CLIA ID: [id number] [facility] Interpretation and review of laboratory results Abnormal [facility] Performed by: [facility], [address] [facility] [address] CLIA ID: [id number] [facility] Interpretation and review of laboratory results Normal [facility] Interpretation and review of laboratory results Abnormal [facility] Performed by: [facility]o [facility], [address] [facility] [address] CLIA ID: [id number] [facility] Interpretation and review of laboratory results Abnormal [facility] Performed by: [facility]o [facility], [address] [facility] [address] CLIA ID: [id number] [facility] Progress Noteon 09-21-2024 Progress Note Normal [facility] THYROID STIMULATING HORMONEo n 09-21-2024 THYROID STIMULATING HORMONE 3.34 uIU/mL Normal 0.35-4.94 [facility] Comment on above: Performed By: #### L AB129, LAB67, LAB15 ####Escort Vehicle Driver: MUSHTAQ MAGUIRE ([id number])[facility] ([facility])[address] [place] [address] VITAMIN B12on 09-21-2024 Cobalamin (Vitamin B12) [Mass/Vol] 332 pg/mL Normal 213-816 [facility] Comment on above: Performed By: #### L AB129, LAB67, LAB15 ####Escort Vehicle Driver: MUSHTAQ MAGUIRE ([id number])[facility] ([facility])[address] [place] [address] ZINC TRANSPORTER 8 ANTIBODY (BKR QUEST)on 09-21-2024 [facility] ZINC TRANSPORTER 8 (ZNT8) ANTIBODY <10 Normal <15 [facility] Comment on above: Result Comment: For additional information, please refer tohttp://education.[employer]/faq/XUE178(This link is being provided forinformation/educational purposes only.)Test performed by [employer] [address] [address] Frcgjpy Director: Elen Foreman MD,PHD,MBATest Reported by Sabrina Cardenasy,[facility],[address] [place] [id number] Rangel M.D., Ph.D., Director of [phone], CLIA [id number] Performed By: #### L AB650, [id number], WAT020, [id number] ####[facility] (AMDBEAKER)[address] [place] [facility] BASIC METABOLIC PANELon 02-0 Anion gap [Moles/Vol] 8 mmol/L Normal 3-13 [facility] Comment on above: Performed By: #### L AB15 ####Escort Vehicle Driver: MUSHTAQ MAGUIRE ([id number])[facility] ([facility] Calcium [Mass/Vol] 9.7 mg/dL Normal 8.8-10.0 [facility] Comment on above: Performed By: #### L AB15 ####Escort Vehicle Driver: MUSHTAQ MAGUIRE ([id number])[facility] ([facility])[address] Chloride [Moles/Vol] 110 mmol/L High 98-107 [facility] Comment on above: Performed By: #### L AB15 ####Escort Vehicle Driver: MUSHTAQ MAGUIRE ([id number])[facility] ([facility] CO2 [Moles/Vol] 21 mmol/L Low 23-31 [facility] Comment on above: Performed By: #### L AB15 ####Escort Vehicle Driver: MUSHTAQ MAGUIRE ([id number])[facility] ([facility])[address] [place] [address] Creatinine [Mass/Vol] 1.03 mg/dL Normal 0.57-1.11 [facility] Comment on above: Performed By: #### L AB15 ####Escort Vehicle Driver: MUSHTAQ MAGUIRE ([id number])[facility] ([facility])[address] GLOMERULAR FILTRATION RATE ML/MIN/1.73 SQ M.PREDICTED 53.4 mL/min/1.73m*2 Low >60.0 [facility] Comment on above: Result Comment: Calc ulation based on the Chronic Kidney Disease Epidemiology Collaboration (CKD-EPI) equation refit without adjustment for race Performed By: #### L AB15 ####Escort Vehicle Driver: MUSHTAQ MAGUIRE ([id number])[facility] ([facility])[address] Glucose [Mass/Vol] 216 mg/dL High 82-115 [facility] Comment on above: Performed By: #### L AB15 ####Escort Vehicle Driver: MUSHTAQ MAGUIRE ([id number])[facility] ([facility])[address] Potassium [Moles/Vol] 4.3 mmol/L Normal 3.5-5.1 [facility] Comment on above: Result Comment: [facility] potassium values may be up to 0.5 mmol/L lower than serum values. Performed By: #### L AB15 ####Escort Vehicle Driver: MUSHTAQ MAGUIRE ([id number])[facility] ([facility])[address] Sodium [Moles/Vol] 139 mmol/L Normal 136-145 [facility] Comment on above: Performed By: #### L AB15 ####Escort Vehicle Driver: MUSHTAQ MAGUIRE ([id number])[facility] ([facility])[address] Urea nitrogen [Mass/Vol] 22 mg/dL Normal 9-23 [facility] Comment on above: Performed By: #### L AB15 ####Escort Vehicle Driver: MUSHTAQ MAGUIRE ([id number])[facility] ([facility])[address] Basic metabolic 1998 panelon 09-20-2024 Anion gap [Moles/Vol] 8 mmol/L 3 - 13 mmol/L [facility] Calcium [Mass/Vol] 9.7 mg/dL 8.8 - 10. 0 mg/dL [facility] Chloride [Moles/Vol] 110 mmol/L High 98 - 10 7 mmol/L [facility] CO2 [Moles/Vol] 21 mmol/L Low 23 - 31 mmol/L [facility] Creatinine [Mass/Vol] 1.03 mg/dL 0.57 - 1.11 mg/dL [facility] GFR/1.73 sq M.predicted (S/P/Bld) [Vol rate/Area] 53.4 mL/min Low - PINF [facility] Comment on above: Calculation based on the Chronic Kidney Disease Epidemiology Collaboration (CKD-EPI) equation refit without adjustment for race Glucose [Mass/Vol] 216 mg/dL High 82 - 115 mg/dL [facility] Interpretation and review of laboratory results Abnormal [facility] Potassium [Moles/Vol] 4.3 mmol/L 3.5 - 5.1 mmol/L [facility] Comment on above: Plasma potassium ashley ues may be up to 0.5 mmol/L lower than serum values. Sodium [Moles/Vol] 139 mmol/L 136 - 145 mmol/L [facility] Urea nitrogen [Mass/Vol] 22 mg/dL 9 - 23 mg/dL [facility] CBC W Auto Differential pane l (Bld)on 09-20-2024 Basophils (Bld) [#/Vol] 0.1 10*3/uL 0.0 - 0.2 10*3/uL [facility] Basophils/100 WBC (Bld) 0.7 % 0.0 - 2.0 % [facility] Eosinophils (Bld) [#/Vol] 0.3 10*3/uL 0.0 - 0.5 10*3/uL [facility] Eosinophils/100 WBC (Bld) 3.8 % 0.0 - 6.0 % [facility] Erythrocyte distribution width (RBC) [Ratio] 13.4 % 11.5 - 15.0 % [facility] Hematocrit (Bld) [Volume fraction] 40.6 % 35.0 - 47.0 % [facility] Hemoglobin (Bld) [Mass/Vol] 13.1 g/dL 11.7 - 16.0 g/dL [facility] Immature granulocytes (Bld) [#/Vol] 0 10*3/uL NINF - 0.1 10*3/uL [facility] Immature granulocytes/100 WBC (Bld) 0.5 % 0.0 - 2.0 % [facility] Interpretation and review of laboratory results Normal [facility] Lymphocytes (Bld) [#/Vol] 2.3 10*3/uL 1.0 - 4.3 10*3/uL [facility] Lymphocytes/100 WBC (Bld) 27.7 % 15.0 - 45.0 % [facility] MCH (RBC) [Entitic mass] 30.8 pg 26.0 - 34.0 pg [facility] MCHC (RBC) [Mass/Vol] 32.3 % 30.5 - 36.0 % [facility] MCV (RBC) [Entitic vol] 95.5 fL 77.0 - 99.0 fL [facility] Monocytes (Bld) [#/Vol] 0.6 10*3/uL 0.0 - 0.9 10*3/uL [facility] Monocytes/100 WBC (Bld) 7.6 % 5.0 - 13.0 % [facility] Neutrophils (Bld) [#/Vol] 5 10*3/uL 1.8 - 7.5 10*3/uL [facility] Neutrophils/100 WBC (Bld) 59.7 % 38.0 - 82.0 % [facility] Nucleated RBC/100 WBC (Bld) [Ratio] 0 % [facility] Platelet mean volume (Bld) [Entitic vol] 10.9 fL 9.0 - 12.7 fL [facility] Platelets (Bld) [#/Vol] 254 10*3/uL 140 - 440 10*3/uL [facility] RBC (Bld) [#/Vol] 4.25 10*6/uL 3.80 - 5.20 10*6/uL [facility] WBC (Bld) [#/Vol] 8.4 10*3/uL 3.6 - 10.7 10*3/uL [facility] CBC WITH AUTO DIFFERENTIALon 09-20-2024 Basophils (Bld) [#/Vol] 0.1 10*3/uL Normal 0.0-0.2 [facility] Comment on above: Performed By: #### L [id number] ####Escort Vehicle Driver: MUSHTAQ XIEAlinDIANA ([id number])[facility] ([facility])[address] Basophils/100 WBC (Bld) 0.7 % Normal 0.0-2.0 [facility] Comment on above: Performed By: #### L [id number] ####Escort Vehicle Driver: MUSHTAQ XIEJOAN ([id number])[facility] ([facility])[address] Eosinophils (Bld) [#/Vol] 0.3 10*3/uL Normal 0.0-0.5 [facility] Comment on above: Performed By: #### L [id number] ####Escort Vehicle Driver: MUSHTAQ ANDREZ ([id number])[facility] [place] ([facility])[address] [place] [address] Eosinophils/100 WBC (Bld) 3.8 % Normal 0.0-6.0 [facility] Comment on above: Performed By: #### L [id number] ####Escort Vehicle Driver: MUSHTAQ OMALLEYDIANA ([id number])[facility] [place] ([facility])[address] [place] [address] Erythrocyte distribution width (RBC) [Ratio] 13.4 % Normal 11.5-15.0 [facility] Comment on above: Performed By: #### L [id number] ####Escort Vehicle Driver: MUSHTAQ OMALLEYDIANA ([id number])[facility] [place] ([facility])[address] [place] [address] Hematocrit (Bld) [Volume fraction] 40.6 % Normal 35.0-47.0 [facility] Comment on above: Performed By: #### L [id number] ####Escort Vehicle Driver: MUSHTAQ OMALLEYDIANA ([id number])[facility] ([facility])[address] [place] [address] Hemoglobin (Bld) [Mass/Vol] 13.1 g/dL Normal 11.7-16.0 [facility] Comment on above: Performed By: #### L [id number] ####Escort Vehicle Driver: MUSHTAQ MAGUIRE ([id number])[facility] ([facility])[address] IMMATURE GRANS % 0.5 % Normal 0.0-2.0 [facility] Comment on above: Performed By: #### L [id number] ####Escort Vehicle Driver: MUSHTAQ MAGUIRE ([id number])[facility] ([facility])[address] IMMATURE GRANS ABSOLUTE 0.0 10*3/uL Normal <0.1 [facility] Comment on above: Performed By: #### L [id number] ####Escort Vehicle Driver: MUSHTAQ MAGUIRE ([id number])[facility] ([facility])[address] [place] [address] Lymphocytes (Bld) [#/Vol] 2.3 10*3/uL Normal 1.0-4.3 [facility] Comment on above: Performed By: #### L [id number] ####Escort Vehicle Driver: MUSHTAQ MAGUIRE ([id number])[facility] ([facility])[address] Lymphocytes/100 WBC (Bld) 27.7 % Normal 15.0-45.0 [facility] Comment on above: Performed By: #### L [id number] ####Escort Vehicle Driver: MUSHTAQ MAGUIRE ([id number])[facility] ([facility])[address] MCH (RBC) [Entitic mass] 30.8 pg Normal 26.0-34.0 [facility] Comment on above: Performed By: #### L [id number] ####Escort Vehicle Driver: MUSHTAQ MAGUIRE ([id number])[facility] ([facility])[address] MCHC 32.3 % Normal 30.5-36.0 [facility] Comment on above: Performed By: #### L [id number] ####Escort Vehicle Driver: MUSHTAQ MAGUIRE ([id number])[facility] ([facility])[address] MCV (RBC) [Entitic vol] 95.5 fL Normal 77.0-99.0 [facility] Comment on above: Performed By: #### L [id number] ####Escort Vehicle Driver: MUSHTAQ MAGUIRE ([id number])[facility] [place] ([facility])[address] Monocytes (Bld) [#/Vol] 0.6 10*3/uL Normal 0.0-0.9 [facility] Comment on above: Performed By: #### L [id number] ####Escort Vehicle Driver: MUSHTAQ MAGUIRE ([id number])[facility] [place] ([facility])[address] [place] [address] Monocytes/100 WBC (Bld) 7.6 % Normal 5.0-13.0 [facility] Comment on above: Performed By: #### L [id number] ####Escort Vehicle Driver: MUSHTAQ OMALLEYDIANA ([id number])[facility] [place] ([facility])[address] NEUTROPHILS ABSOLUTE 5.0 10*3/uL Normal 1.8-7.5 [facility] Comment on above: Performed By: #### L [id number] ####Escort Vehicle Driver: MUSHTAQ MAGUIRE ([id number])[facility] [place] ([facility])[address] Neutrophils/100 WBC (Bld) 59.7 % Normal 38.0-82.0 [facility] Comment on above: Performed By: #### L [id number] ####Escort Vehicle Driver: MUSHTAQ MAGUIRE ([id number])[facility] [place] ([facility])[address] NRBC 0.0 /100 WBCs Normal 0.0-2.0 [facility] Comment on above: Performed By: #### L [id number] ####Escort Vehicle Driver: MUSHTAQ OMALLEYDIANA ([id number])[facility] CENTERJuliana [place] (SBHLAB)[address] Platelet mean volume (Bld) [Entitic vol] 10.9 fL Normal 9.0-12.7 [facility] Comment on above: Performed By: #### L [id number] ####Escort Vehicle Driver: MUSHTAQYVON MAGUIRE ([id number])[facility] CENTERJuliana [facility]ALLONMESILLA VALLEY HOSPITALN ([facility])[address] Platelets (Bld) [#/Vol] 254 10*3/uL Normal 140-440 [facility] Comment on above: Performed By: #### L [id number] ####Escort Vehicle Driver: MUSHTAQYVON MAGUIRE ([id number])[facility] ([facility])[address] RBC (Bld) [#/Vol] 4.25 10*6/uL Normal 3.80-5.20 [facility] Comment on above: Performed By: #### L [id number] ####Escort Vehicle Driver: MUSHTAQ ANDREZ ([id number])[facility] ([facility])[address] WBC (Bld) [#/Vol] 8.4 10*3/uL Normal 3.6-10.7 [facility] Comment on above: Performed By: #### L [id number] ####Escort Vehicle Driver: MUSHTAQ ANDREZ ([id number])[facility]ENTERJuliana [facility] ([facility])[address] HEMOGLOBIN A1Con 09-20-2024 Glucose [Mass/Vol] 303 mg/dL Normal [facility] Comment on above: Result Comment: CARLTON Geiger COMMENTS:HbA1c values of 5.7-6.4 percent indicate an increased risk for developing diabetes mellitus. HbA1c values greater than or equal to 6.5 percent are diagnostic of diabetes mellitus. For diagnosis of diabetes in individuals without unequivocal hyperglycemia, results should be confirmed by repeat testing. Performed By: #### L AB90 ####Escort Vehicle Driver: MUSHTAQ MAGUIRE ([id number])[facility]ITAL[facility] ([facility])[address] HEMOGLOBIN A1C 12.2 %HbA1C High <5.7 [facility] Comment on above: Result Comment: Norm al less than 5.7%Prediabetes 5.7% to 6.4%Diabetes 6.5% or higher--HgbA1C levels may not be accurate in patients who have renal disease, received recent blood transfusions, are anemic, or who have dyshemoglobinemia. Performed By: #### L AB90 ####Escort Vehicle Driver: MUSHTAQ MAGUIRE ([id number])[facility] [place] ([facility])[address] [place] [address] Laboratory - Chemistry and C hemistry - challengeon 09-20-2024 Glucose [Mass/Vol] 155 mg/dL High 70 - 100 mg/dL [facility] Glucose [Mass/Vol] 168 mg/dL High 70 - 100 mg/dL [facility] Glucose [Mass/Vol] 266 mg/dL High 70 - 100 mg/dL [facility] Glucose [Mass/Vol] 251 mg/dL High 70 - 100 mg/dL [facility] Average glucose Estimated from glycated hemoglobin (Bld) [Mass/Vol] 303 mg/dL [facility] Laboratory - Hematology and Cell countson 09-20-2024 HbA1c (Bld) [Mass fraction] 12.2 % High [facility] Comment on above: Normal less than 5.7 % Prediabetes 5.7% to 6.4% Diabetes 6.5% or higher --HgbA1C levels may not be accurate in patients who have renal disease, received recent blood transfusions, are anemic, or who have dyshemoglobinemia. No Panel Informationon 09-20 Interpretation and review of laboratory results Abnormal [facility] Performed by: [facility], [address] [place] [address] CLIA ID: [id number] [facility] Interpretation and review of laboratory results Abnormal [facility] Performed by: [facility], [address] [place] [address] CLIA ID: [id number] [facility] Interpretation and review of laboratory results Abnormal [facility] Performed by: [facility], [address] [facility] [address] CLIA ID: [id number] [facility] Interpretation and review of laboratory results Abnormal [facility] Performed by: [facility], [address] [facility] [address] CLIA ID: [id number] [facility] Interpretation and review of laboratory results Abnormal [facility] HbA1c values of 5.7- 6.4 percent indicate an increased risk for developing diabetes mellitus. HbA1c values greater than or equal to 6.5 percent are diagnostic of diabetes mellitus. For diagnosis of diabetes in individuals without unequivocal hyperglycemia, results should be confirmed by repeat testing. [facility] Progress Noteon 09-20-2024 Progress Note Normal [facility] BASIC METABOLIC PANELon Anion gap [Moles/Vol] 10 mmol/L Normal 3-13 [facility] Comment on above: Performed By: #### L AB15 ####Escort Vehicle Driver: MUSHTAQ MAGUIRE ([id number])[facility] ([facility])[address] Calcium [Mass/Vol] 9.4 mg/dL Normal 8.8-10.0 [facility] Comment on above: Performed By: #### L AB15 ####Escort Vehicle Driver: MUSHTAQ MAGUIRE ([id number])[facility] (SBHLAB)[address] [place] [address] [place] Chloride [Moles/Vol] 106 mmol/L Normal 98-107 [facility] Comment on above: Performed By: #### L AB15 ####Escort Vehicle Driver: MUSHTAQ MAGUIRE ([id number])[facility] ([facility])[address] [place] [address] [place] CO2 [Moles/Vol] 21 mmol/L Low 23-31 [facility] Comment on above: Performed By: #### L AB15 ####Escort Vehicle Driver: MUSHTAQ MAGUIRE ([id number])[facility] ([facility])[address] [place] [address] [place] Creatinine [Mass/Vol] 1.10 mg/dL Normal 0.57-1.11 [facility] Comment on above: Performed By: #### L AB15 ####Escort Vehicle Driver: MUSHTAQ MAGUIRE ([id number])[facility] ([facility])[address] GLOMERULAR FILTRATION RATE ML/MIN/1.73 SQ M.PREDICTED 49.3 mL/min/1.73m*2 Low >60.0 [facility] Comment on above: Result Comment: Calc ulation based on the Chronic Kidney Disease Epidemiology Collaboration (CKD-EPI) equation refit without adjustment for race Performed By: #### L AB15 ####Escort Vehicle Driver: MUSHTAQ MAGUIRE ([id number])[facility] ([facility])[address] Glucose [Mass/Vol] 286 mg/dL High 82-115 [facility] Comment on above: Performed By: #### L AB15 ####Escort Vehicle Driver: MUSHTAQ MAGUIRE ([id number])[facility] ([facility])[address] [place] [address] Potassium [Moles/Vol] 4.0 mmol/L Normal 3.5-5.1 [facility] Comment on above: Result Comment: [facility] potassium values may be up to 0.5 mmol/L lower than serum values. Performed By: #### L AB15 ####Escort Vehicle Driver: MUSHTAQ MAGUIRE ([id number])[facility] ([facility])[address] Sodium [Moles/Vol] 137 mmol/L Normal 136-145 [facility] Comment on above: Performed By: #### L AB15 ####Escort Vehicle Driver: MUSHTAQ MAGUIRE ([id number])[facility] ([facility])[address] Urea nitrogen [Mass/Vol] 24 mg/dL High 9-23 [facility] Comment on above: Performed By: #### L AB15 ####Escort Vehicle Driver: MUSHTAQ MAGUIRE ([id number])[facility] (SBHL[facility])[address] [place] [id number] [facility] Basic metabolic 1998 panelon 09-19-2024 Anion gap [Moles/Vol] 10 mmol/L 3 - 13 mmol/L [facility] Calcium [Mass/Vol] 9.4 mg/dL 8.8 - 10. 0 mg/dL [facility] Chloride [Moles/Vol] 106 mmol/L 98 - 10 7 mmol/L [facility] CO2 [Moles/Vol] 21 mmol/L Low 23 - 31 mmol/L [facility] Creatinine [Mass/Vol] 1.1 mg/dL 0.57 - 1.11 mg/dL [facility] GFR/1.73 sq M.predicted (S/P/Bld) [Vol rate/Area] 49.3 mL/min Low - PINF [facility] Comment on above: Calculation based on the Chronic Kidney Disease Epidemiology Collaboration (CKD-EPI) equation refit without adjustment for race Glucose [Mass/Vol] 286 mg/dL High 82 - 115 mg/dL [facility] Interpretation and review of laboratory results Abnormal [facility] Potassium [Moles/Vol] 4 mmol/L 3.5 - 5.1 mmol/L [facility] Comment on above: Plasma potassium ashley ues may be up to 0.5 mmol/L lower than serum values. Sodium [Moles/Vol] 137 mmol/L 136 - 145 mmol/L [facility] Urea nitrogen [Mass/Vol] 24 mg/dL High 9 - 23 mg/dL [facility] CBC W Auto Differential pane l (Bld)on 09-19-2024 Basophils (Bld) [#/Vol] 0 10*3/uL 0.0 - 0.2 10*3/uL [facility] Basophils/100 WBC (Bld) 0.4 % 0.0 - 2.0 % [facility] Eosinophils (Bld) [#/Vol] 0.2 10*3/uL 0.0 - 0.5 10*3/uL [facility] Eosinophils/100 WBC (Bld) 3 % 0.0 - 6.0 % [facility] Erythrocyte distribution width (RBC) [Ratio] 13.5 % 11.5 - 15.0 % [facility] Hematocrit (Bld) [Volume fraction] 37 % 35.0 - 47.0 % [facility] Hemoglobin (Bld) [Mass/Vol] 12.2 g/dL 11.7 - 16.0 g/dL [facility] Immature granulocytes (Bld) [#/Vol] 0 10*3/uL NINF - 0.1 10*3/uL [facility] Immature granulocytes/100 WBC (Bld) 0.4 % 0.0 - 2.0 % [facility] Interpretation and review of laboratory results Normal [facility] Lymphocytes (Bld) [#/Vol] 1.4 10*3/uL 1.0 - 4.3 10*3/uL [facility] Lymphocytes/100 WBC (Bld) 18.9 % 15.0 - 45.0 % [facility] MCH (RBC) [Entitic mass] 31.1 pg 26.0 - 34.0 pg [facility] MCHC (RBC) [Mass/Vol] 33 % 30.5 - 36.0 % [facility] MCV (RBC) [Entitic vol] 94.4 fL 77.0 - 99.0 fL [facility] Monocytes (Bld) [#/Vol] 0.5 10*3/uL 0.0 - 0.9 10*3/uL [facility] Monocytes/100 WBC (Bld) 6.6 % 5.0 - 13.0 % [facility] Neutrophils (Bld) [#/Vol] 5.1 10*3/uL 1.8 - 7.5 10*3/uL [facility] Neutrophils/100 WBC (Bld) 70.7 % 38.0 - 82.0 % [facility] Nucleated RBC/100 WBC (Bld) [Ratio] 0 % [facility] Platelet mean volume (Bld) [Entitic vol] 11 fL 9.0 - 12.7 fL [facility] Platelets (Bld) [#/Vol] 253 10*3/uL 140 - 440 10*3/uL [facility] RBC (Bld) [#/Vol] 3.92 10*6/uL 3.80 - 5.20 10*6/uL [facility] WBC (Bld) [#/Vol] 7.3 10*3/uL 3.6 - 10.7 10*3/uL [facility] CBC WITH AUTO DIFFERENTIALon 09-19-2024 Basophils (Bld) [#/Vol] 0.0 10*3/uL Normal 0.0-0.2 [facility] Comment on above: Performed By: #### L [id number] ####Escort Vehicle Driver: MUSHTAQ MAGUIRE ([phone])[facility] [place] (SBHL[facility])[address] [place] [address] Basophils/100 WBC (Bld) 0.4 % Normal 0.0-2.0 [facility] Comment on above: Performed By: #### L [id number] ####Escort Vehicle Driver: MUSHTAQ MAGUIRE ([id number])[facility] [place] (SBHLAB)[address] Eosinophils (Bld) [#/Vol] 0.2 10*3/uL Normal 0.0-0.5 [facility] Comment on above: Performed By: #### L [id number] ####Escort Vehicle Driver: MUSHTAQ OMALLEYDIANA ([id number])[facility] [place] (SB[facility])[address] [place] [address] Eosinophils/100 WBC (Bld) 3.0 % Normal 0.0-6.0 [facility] Comment on above: Performed By: #### L [id number] ####Escort Vehicle Driver: MUSHTAQ MAGUIRE ([id number])[facility] [place] (SBAB)[address] [place] [address] Erythrocyte distribution width (RBC) [Ratio] 13.5 % Normal 11.5-15.0 [facility] Comment on above: Performed By: #### L [id number] ####Escort Vehicle Driver: MUSHTAQ MAGUIRE ([id number])[facility] [place] (SBHL[facility])[address] [place] [address] Hematocrit (Bld) [Volume fraction] 37.0 % Normal 35.0-47.0 [facility] Comment on above: Performed By: #### L [id number] ####Escort Vehicle Driver: MUSHTAQ MAGUIRE ([id number])[facility] [place] (SB[facility])[address] [place] [address] Hemoglobin (Bld) [Mass/Vol] 12.2 g/dL Normal 11.7-16.0 [facility] Comment on above: Performed By: #### L [id number] ####Escort Vehicle Driver: MUSHTAQ MAGUIRE ([id number])[facility] [place] (SB[facility])[address] [place] [address] IMMATURE GRANS % 0.4 % Normal 0.0-2.0 [facility] Comment on above: Performed By: #### L [id number] ####Escort Vehicle Driver: MUSHTAQ MAGUIRE ([id number])[facility] [place] (SB[facility])[address] IMMATURE GRANS ABSOLUTE 0.0 10*3/uL Normal <0.1 [facility] Comment on above: Performed By: #### L [id number] ####Escort Vehicle Driver: MUSHTAQ MAGUIRE ([id number])[facility] [place] [address] Lymphocytes (Bld) [#/Vol] 1.4 10*3/uL Normal 1.0-4.3 [facility] Comment on above: Performed By: #### L [id number] ####Escort Vehicle Driver: MUSHTAQ MAGUIRE ([id number])[facility] ([facility] [place] [address] Lymphocytes/100 WBC (Bld) 18.9 % Normal 15.0-45.0 [facility] Comment on above: Performed By: #### L [id number] ####Escort Vehicle Driver: MUSHTAQ MAGUIRE ([phone])[facility] (SBAB)[address] [place] [address] MCH (RBC) [Entitic mass] 31.1 pg Normal 26.0-34.0 [facility] Comment on above: Performed By: #### L [id number] ####Escort Vehicle Driver: MUSHTAQ MAGUIRE ([id number])[facility] ([facility] [place] [address] MCHC 33.0 % Normal 30.5-36.0 [facility] Comment on above: Performed By: #### L [id number] ####Escort Vehicle Driver: MUSHTAQ XIEAlinDIANA ([id number])[facility] [place] (SBHLAB)[address] MCV (RBC) [Entitic vol] 94.4 fL Normal 77.0-99.0 [facility] Comment on above: Performed By: #### L [id number] ####Escort Vehicle Driver: MUSHTAQ ANDREZ ([id number])[facility] [place] (SBHL[facility])[address] Monocytes (Bld) [#/Vol] 0.5 10*3/uL Normal 0.0-0.9 [facility] Comment on above: Performed By: #### L [id number] ####Escort Vehicle Driver: MUSHTAQ ANDREZ ([id number])[facility] [place] (SB[facility])[address] [place] [address] Monocytes/100 WBC (Bld) 6.6 % Normal 5.0-13.0 [facility] Comment on above: Performed By: #### L [id number] ####Escort Vehicle Driver: MUSHTAQ OMALLEYDIANA ([id number])[facility] [place] (SB[facility])[address] NEUTROPHILS ABSOLUTE 5.1 10*3/uL Normal 1.8-7.5 [facility] Comment on above: Performed By: #### L [id number] ####Escort Vehicle Driver: MUSHTAQ OMALLEYDIANA ([id number])[facility] [place] (SB[facility])[address] Neutrophils/100 WBC (Bld) 70.7 % Normal 38.0-82.0 [facility] Comment on above: Performed By: #### L [id number] ####Escort Vehicle Driver: MUSHTAQ OMALLEYDIANA ([id number])[facility] [place] (SB[facility])[address] [place] [address] NRBC 0.0 /100 WBCs Normal 0.0-2.0 [facility] Comment on above: Performed By: #### L [id number] ####Escort Vehicle Driver: MUSHTAQ MAGUIRE ([id number])[facility] CENTERJuliana ABURTOGloria (SBHLAB)[address] Platelet mean volume (Bld) [Entitic vol] 11.0 fL Normal 9.0-12.7 [facility] Comment on above: Performed By: #### L [id number] ####Escort Vehicle Driver: MUSHTAQ MAGUIRE ([id number])[facility] CENTERJuliana [facility]ALLONM[facility]ILLA [facility]ITALN (SBHLAB)[address] Platelets (Bld) [#/Vol] 253 10*3/uL Normal 140-440 [facility] Comment on above: Performed By: #### L [id number] ####Escort Vehicle Driver: MUSHTAQ MAGUIRE ([id number])[facility]ENTERJuliana MAGALLONMESILLA VALLEY HOSPITALGloria (SBAB)[address] [place] [address] RBC (Bld) [#/Vol] 3.92 10*6/uL Normal 3.80-5.20 [facility] Comment on above: Performed By: #### L [id number] ####Escort Vehicle Driver: MUSHTAQ MAGUIRE ([id number])[facility] CENTERJuliana MAGALLONBANNER (SBHLAB)[address] [place] [address] WBC (Bld) [#/Vol] 7.3 10*3/uL Normal 3.6-10.7 [facility] Comment on above: Performed By: #### L [id number] ####Escort Vehicle Driver: MUSHTAQ MAGUIRE ([id number])[facility]ENTERJuliana MAGALLONMESILLA [facility]LEY HOSPITALN (SBHLAB)[address] [place] [address] Laboratory - Chemistry and C hemistry - challengeon 09-19-2024 Glucose [Mass/Vol] 210 mg/dL High 70 - 100 mg/dL [facility] Glucose [Mass/Vol] 99 mg/dL 70 - 100 mg/dL [facility] Glucose [Mass/Vol] 114 mg/dL High 70 - 100 mg/dL [facility] Glucose [Mass/Vol] 313 mg/dL High 70 - 100 mg/dL [facility] Glucose [Mass/Vol] 280 mg/dL High 70 - 100 mg/dL [facility] Glucose [Mass/Vol] 274 mg/dL High 70 - 100 mg/dL [facility] No Panel Informationon 09-19 Interpretation and review of laboratory results Abnormal [facility]formed by: [facility], [address] [place] [address] CLIA ID: [id number] [facility] Interpretation and review of laboratory results Normal [facility] Performed by: [facility], [address] [place] [address] CLIA ID: [id number] [facility] Interpretation and review of laboratory results Abnormal [facility] Performed by: [facility], [address] [place] [address] CLIA ID: [id number] [facility] Interpretation and review of laboratory results Abnormal [facility] Performed by: [facility], [address] [place] [address] CLIA ID: [id number] [facility] Interpretation and review of laboratory results Abnormal [facility] Performed by: [facility], [address] [place] [address] CLIA ID: [id number] [facility] Interpretation and review of laboratory results Abnormal [facility] Performed by: [facility] [place] [facility], [address] [place] [address] CLIA ID: [id number] [facility] Progress Noteon 09-19-2024 Progress Note Nutrition- K= 4 - RD discontinued K+ restriction.. RD to follow Normal [facility] Progress Note Normal [facility] Progress Note Normal [facility] BETA HYDROXYBUTYRATEon 09-18 BETA HYDROXYBUTYRATE 2.7 mg/dL Normal <=2.8 [facility] Comment on above: Performed By: #### L [id number], LAB17 ####Escort Vehicle Driver: MUSHTAQ MAGUIRE ([id number])[facility]ENTERJuliana HSIEH (SBHLAB)[address] [place] [address] BLOOD GAS, VENOUSon 09-18-19 25 Base excess Calc (BldV) [Moles/Vol] -6.8000 mmol/L Low -3.0-3.0 [facility] Comment on above: Performed By: #### L [id number] ####Escort Vehicle Driver: MUSHTAQ MAGUIRE ([id number])[facility] (SBHLAB)[address] CO2 [Moles/Vol] 19.6 mmol/L Low 23.0-30.0 [facility] Comment on above: Performed By: #### L [id number] ####Escort Vehicle Driver: MUSHTAQ MAGUIRE ([id number])[facility] [place] (SBHLAB)[address] HCO3 (Bld) [Moles/Vol] 18.5 mmol/L Low 21.0-30.0 [facility] Comment on above: Performed By: #### L [id number] ####Escort Vehicle Driver: MUSHTAQ MAGUIRE ([id number])[facility] ([facility])[address] Hemoglobin (Bld) [Mass/Vol] 14.6 g/dL Normal Screen only [facility] Comment on above: Performed By: #### L [id number] ####Escort Vehicle Driver: MUSHTAQ MAGUIRE ([phone])[facility] (SBHLAB)[address] OXYGEN (MM HG) IN VENOUS BLOOD 27.7 mm Hg Normal [facility] Comment on above: Performed By: #### L [id number] ####Escort Vehicle Driver: MUSHTAQ MAGUIRE ([id number])[facility] (SBHLAB)[address] OXYGEN SATURATION (%) IN VENOUS BLOOD 46.3 % Normal [facility] Comment on above: Performed By: #### L AB79 ####Escort Vehicle Driver: MUSHTAQ MAGUIRE ([id number])[facility] (SBHLAB)[address] [place] [address] [place] PCO2, QASIM 36.7 mm Hg Normal 35.0-53.0 [facility] Comment on above: Performed By: #### L AB79 ####Escort Vehicle Driver: MUSHTAQ MAGUIRE ([id number])[facility] (SBHLAB)[address] PH VENOUS 7.320 Normal 7.320-7.42 0 [facility] Comment on above: Performed By: #### L [id number] ####Escort Vehicle Driver: MUSHTAQ ANDREZ ([id number])[facility] (SBHLAB)[address] SOURCE OF OXYGEN Room Air Normal [facility] Comment on above: Result Comment: CARLTON Geiger COMMENTS:Assessment of oxygenation is best done with an arterial blood gas determination. Reference ranges for pO2, bicarbonate, and base excess are for mixed venous blood. Specimens drawn from a peripheral vein will often have higher values. Performed By: #### L AB79 ####Escort Vehicle Driver: MUSHTAQ HOLMCER ([id number])[facility] (SBHLAB)[address] CBC W Auto Differential pane l (Bld)on 09-18-2024 Basophils (Bld) [#/Vol] 0.1 10*3/uL 0.0 - 0.2 10*3/uL [facility] Basophils/100 WBC (Bld) 0.6 % 0.0 - 2.0 % [facility] Eosinophils (Bld) [#/Vol] 0.2 10*3/uL 0.0 - 0.5 10*3/uL [facility] Eosinophils/100 WBC (Bld) 1.7 % 0.0 - 6.0 % [facility] Erythrocyte distribution width (RBC) [Ratio] 13.4 % 11.5 - 15.0 % [facility] Hematocrit (Bld) [Volume fraction] 38.1 % 35.0 - 47.0 % [facility] Hemoglobin (Bld) [Mass/Vol] 12.5 g/dL 11.7 - 16.0 g/dL [facility] Immature granulocytes (Bld) [#/Vol] 0 10*3/uL NINF - 0.1 10*3/uL [facility] Immature granulocytes/100 WBC (Bld) 0.5 % 0.0 - 2.0 % [facility] Interpretation and review of laboratory results Abnormal [facility] Lymphocytes (Bld) [#/Vol] 1.2 10*3/uL 1.0 - 4.3 10*3/uL [facility] Lymphocytes/100 WBC (Bld) 13.5 % Low 15.0 - 45.0 % [facility] MCH (RBC) [Entitic mass] 30.8 pg 26.0 - 34.0 pg [facility] MCHC (RBC) [Mass/Vol] 32.8 % 30.5 - 36.0 % [facility] MCV (RBC) [Entitic vol] 93.8 fL 77.0 - 99.0 fL [facility] Monocytes (Bld) [#/Vol] 0.6 10*3/uL 0.0 - 0.9 10*3/uL [facility] Monocytes/100 WBC (Bld) 7 % 5.0 - 13.0 % [facility] Neutrophils (Bld) [#/Vol] 6.7 10*3/uL 1.8 - 7.5 10*3/uL [facility] Neutrophils/100 WBC (Bld) 76.7 % 38.0 - 82.0 % [facility] Nucleated RBC/100 WBC (Bld) [Ratio] 0 % [facility] Platelet mean volume (Bld) [Entitic vol] 11.2 fL 9.0 - 12.7 fL [facility] Platelets (Bld) [#/Vol] 245 10*3/uL 140 - 440 10*3/uL [facility] RBC (Bld) [#/Vol] 4.06 10*6/uL 3.80 - 5.20 10*6/uL [facility] WBC (Bld) [#/Vol] 8.7 10*3/uL 3.6 - 10.7 10*3/uL [facility] CBC WITH AUTO DIFFERENTIALon 09-18-2024 Basophils (Bld) [#/Vol] 0.1 10*3/uL Normal 0.0-0.2 [facility] Comment on above: Performed By: #### L [id number] ####Escort Vehicle Driver: MUSHTAQ MAGUIRE ([id number])[facility] [place] [address] Basophils/100 WBC (Bld) 0.6 % Normal 0.0-2.0 [facility] Comment on above: Performed By: #### L [id number] ####Escort Vehicle Driver: MUSHTAQ MAGUIRE ([id number])[facility] ([facility])[address] Eosinophils (Bld) [#/Vol] 0.2 10*3/uL Normal 0.0-0.5 [facility] Comment on above: Performed By: #### L [id number] ####Escort Vehicle Driver: MUSHTAQ MAGUIRE ([phone])[facility] (SBAB)[address] Eosinophils/100 WBC (Bld) 1.7 % Normal 0.0-6.0 [facility] Comment on above: Performed By: #### L [id number] ####Escort Vehicle Driver: MUSHTAQ MAGUIRE ([id number])[facility] ([facility])[address] Erythrocyte distribution width (RBC) [Ratio] 13.4 % Normal 11.5-15.0 [facility] Comment on above: Performed By: #### L [id number] ####Escort Vehicle Driver: MUSHTAQ MAGUIRE ([id number])[facility] ([facility])[address] [place] [address] Hematocrit (Bld) [Volume fraction] 38.1 % Normal 35.0-47.0 [facility] Comment on above: Performed By: #### L [id number] ####Escort Vehicle Driver: MUSHTAQ MAGUIRE ([phone])[facility] [place] ([facility])[address] [place] [address] Hemoglobin (Bld) [Mass/Vol] 12.5 g/dL Normal 11.7-16.0 [facility] Comment on above: Performed By: #### L [id number] ####Escort Vehicle Driver: MUSHTAQ MAGUIRE ([id number])[facility] (SBAB)[address] IMMATURE GRANS % 0.5 % Normal 0.0-2.0 [facility] Comment on above: Performed By: #### L [id number] ####Escort Vehicle Driver: MUSHTAQ MAGUIRE ([id number])[facility] ([facility])[address] IMMATURE GRANS ABSOLUTE 0.0 10*3/uL Normal <0.1 [facility] Comment on above: Performed By: #### L [id number] ####Escort Vehicle Driver: MUSHTAQ MAGUIRE ([id number])[facility] ([facility])[address] Lymphocytes (Bld) [#/Vol] 1.2 10*3/uL Normal 1.0-4.3 [facility] Comment on above: Performed By: #### L [id number] ####Escort Vehicle Driver: MUSHTAQ MAGUIRE ([id number])[facility] ([facility])[address] [place] [address] Lymphocytes/100 WBC (Bld) 13.5 % Low 15.0-45.0 [facility] Comment on above: Performed By: #### L [id number] ####Escort Vehicle Driver: MUSHTAQ MAGUIRE ([id number])[facility] ([facility])[address] [place] [address] MCH (RBC) [Entitic mass] 30.8 pg Normal 26.0-34.0 [facility] Comment on above: Performed By: #### L [id number] ####Escort Vehicle Driver: MUSHTAQ MAGUIRE ([id number])[facility] ([facility])[address] [place] [address] MCHC 32.8 % Normal 30.5-36.0 [facility] Comment on above: Performed By: #### L [id number] ####Escort Vehicle Driver: MUSHTAQ MAGUIRE ([id number])[facility] ([facility])[address] [place] [address] MCV (RBC) [Entitic vol] 93.8 fL Normal 77.0-99.0 [facility] Comment on above: Performed By: #### L [id number] ####Escort Vehicle Driver: MUSHTAQ XIEAlinDIANA ([id number])[facility] [place] (SBHLAB)[address] Monocytes (Bld) [#/Vol] 0.6 10*3/uL Normal 0.0-0.9 [facility] Comment on above: Performed By: #### L [id number] ####Escort Vehicle Driver: MUSHTAQ XIEJOAN ([id number])[facility] [place] (SBHLAB)[address] Monocytes/100 WBC (Bld) 7.0 % Normal 5.0-13.0 [facility] Comment on above: Performed By: #### L [id number] ####Escort Vehicle Driver: MUSHTAQ ANDREZ ([id number])[facility] (SBHLAB)[address] NEUTROPHILS ABSOLUTE 6.7 10*3/uL Normal 1.8-7.5 [facility] Comment on above: Performed By: #### L [id number] ####Escort Vehicle Driver: MUSHTAQ OMALLEYDIANA ([id number])[facility] [place] (SBHL[facility])[address] Neutrophils/100 WBC (Bld) 76.7 % Normal 38.0-82.0 [facility] Comment on above: Performed By: #### L [id number] ####Escort Vehicle Driver: MUSHTAQ OMALLEYDIANA ([id number])[facility] [place] (SB[facility])[address] NRBC 0.0 /100 WBCs Normal 0.0-2.0 [facility] Comment on above: Performed By: #### L [id number] ####Escort Vehicle Driver: MUSHTAQ OMALLEYDIANA ([id number])[facility] [place] ([facility])[address] Platelet mean volume (Bld) [Entitic vol] 11.2 fL Normal 9.0-12.7 [facility] Comment on above: Performed By: #### L [id number] ####Escort Vehicle Driver: MUSHTAQ MAGUIRE ([id number])[facility] [place] (SBHL[facility])[address] Platelets (Bld) [#/Vol] 245 10*3/uL Normal 140-440 [facility] Comment on above: Performed By: #### L [id number] ####Escort Vehicle Driver: MUSHTAQ MAGUIRE ([id number])[facility] (SB[facility])[address] RBC (Bld) [#/Vol] 4.06 10*6/uL Normal 3.80-5.20 [facility] Comment on above: Performed By: #### L [id number] ####Escort Vehicle Driver: MUSHTAQ MAGUIRE ([id number])[facility] ([facility])[address] [place] [address] WBC (Bld) [#/Vol] 8.7 10*3/uL Normal 3.6-10.7 [facility] Comment on above: Performed By: #### L [id number] ####Escort Vehicle Driver: MUSHTAQ MAGUIRE ([id number])[facility] ([facility])[address] [place] [address] COMPLETE URINALYSISon 2024 BACTERIA (#/HPF) IN URINE Moderate Abnormal Negative [facility] Comment on above: Performed By: #### L [id number] ####Escort Vehicle Driver: MUSHTAQ MAGUIRE ([id number])[facility] ([facility])[address] [place] [address] BILIRUBIN, TOTAL PRESENCE IN URINE Negative Normal Negative [facility] Comment on above: Performed By: #### L [id number] ####Escort Vehicle Driver: MUSHTAQ MAGUIRE ([phone])[facility] ([facility])[address] [place] [address] Clarity (U) Clear Normal Clear [facility] Comment on above: Performed By: #### L [id number] ####Escort Vehicle Driver: MUSHTAQ MAGUIRE ([id number])[facility] ([facility])[address] Color (U) Colorless Normal Lt. Yellow [facility] Comment on above: Performed By: #### L [id number] ####Escort Vehicle Driver: MUSHTAQ OMALLEYDIANA ([id number])[facility] ([facility])[address] GLUCOSE (MG/DL) IN URINE >1,000 Abnormal Normal (<70) [facility] Comment on above: Performed By: #### L [id number] ####Escort Vehicle Driver: MUSHTAQ MAGUIRE ([id number])[facility] ([facility])[address] HEMOGLOBIN PRESENCE IN URINE Negative Normal Negative [facility] Comment on above: Performed By: #### L [id number] ####Escort Vehicle Driver: MUSHTAQ MAGUIRE ([id number])[facility] ([facility])[address] Ketones Ql (U) Negative Normal Negative [facility] Comment on above: Performed By: #### L [id number] ####Escort Vehicle Driver: MUSHTAQ MAGUIRE ([id number])[facility] ([facility])[address] LEUKOCYTE ESTERASE PRESENCE IN URINE BY TEST STRIP Negative Normal Negative [facility] Comment on above: Performed By: #### L [id number] ####Escort Vehicle Driver: MUSHTAQ MAGUIRE ([id number])[facility] ([facility])[address] NITRITE PRESENCE IN URINE Positive Abnormal Negative [facility] Comment on above: Performed By: #### L [id number] ####Escort Vehicle Driver: MUSHTAQ MAGUIRE ([id number])[facility] ([facility])[address] pH (U) 5.0 [pH] Normal 5.0-8.0 [facility] Comment on above: Performed By: #### L [id number] ####Escort Vehicle Driver: MUSHTAQ MAGUIRE ([id number])[facility] [place] ([facility])[address] Protein (U) [Mass/Vol] Negative Normal Negative [facility] Comment on above: Performed By: #### L [id number] ####Escort Vehicle Driver: MUSHTAQ OMALLEYDIANA ([id number])[facility] [place] ([facility])[address] [place] [address] [place] RBC (#/HPF) IN URINE SEDIMENT 0-2 Normal 0-2 [facility] Comment on above: Performed By: #### L [id number] ####Escort Vehicle Driver: MUSHTAQ OMALLEYDIANA ([id number])[facility] [place] ([facility])[address] [place] [address] Specific gravity (U) [Rel density] 1.024 Normal 1.005-1.03 0 [facility] Comment on above: Performed By: #### L [id number] ####Escort Vehicle Driver: MUSHTAQ OMALLEYDIANA ([id number])[facility] [place] ([facility])[address] [place] [address] [place] SQUAMOUS EPITHELIAL CELLS (#/HPF) IN URINE SEDIMENT 0-2 Normal 3-5 [facility] Comment on above: Performed By: #### L [id number] ####Escort Vehicle Driver: MUSHTAQ MAGUIRE ([id number])[facility] [place] ([facility])[address] [place] [address] [place] UROBILINOGEN (MG/DL) IN URINE Normal Normal Normal (0-1) [facility] Comment on above: Performed By: #### L [id number] ####Escort Vehicle Driver: MUSHTAQ MAGUIRE ([phone])[facility] [place] ([facility])[address] [place] [address] [place] WBC (LEUKOCYTE) (#/HPF) IN URINE SEDIMENT 3-5 Normal 0-5 [facility] Comment on above: Performed By: #### L [id number] ####Escort Vehicle Driver: MUSHTAQ MAGUIRE ([id number])[facility] [place] (SBHLAB)[address] COMPREHENSIVE METABOLIC PANE David 09-18-2024 Albumin [Mass/Vol] 3.6 g/dL Normal 3.4-4.8 [facility] Comment on above: Performed By: #### L [id number], LAB17 ####Escort Vehicle Driver: MUSHTAQ MAGUIRE ([id number])[facility] [place] (SBHLAB)[address] ALP [Catalytic activity/Vol] 102 U/L Normal 40-150 [facility] Comment on above: Performed By: #### L [id number], LAB17 ####Escort Vehicle Driver: MUSHTAQ MAGUIRE ([id number])[facility] ([facility] ALT [Catalytic activity/Vol] 16 U/L Normal <30 [facility] Comment on above: Performed By: #### L [id number], LAB17 ####Escort Vehicle Driver: MUSHTAQ MAGUIRE ([id number])[facility] ([facility] Anion gap [Moles/Vol] 11 mmol/L Normal 3-13 [facility] Comment on above: Performed By: #### L [id number], LAB17 ####Escort Vehicle Driver: MUSHTAQ MAGUIRE ([id number])[facility] AST [Catalytic activity/Vol] 20 U/L Normal <34 [facility] Comment on above: Performed By: #### L [id number], LAB17 ####Escort Vehicle Driver: MUSHTAQ MAGUIRE ([id number])[facility] ([facility])[address] Bilirubin [Mass/Vol] 0.4 mg/dL Normal <1.2 [facility] Comment on above: Performed By: #### L [id number], LAB17 ####Escort Vehicle Driver: MUSHTAQ MAGUIRE ([id number])[facility] [place] (SBHLAB)[address] Calcium [Mass/Vol] 9.2 mg/dL Normal 8.8-10.0 [facility] Comment on above: Performed By: #### L [id number], LAB17 ####Escort Vehicle Driver: MUSHTAQ MAGUIRE ([id number])[facility] [place] (SBHLAB)[address] Chloride [Moles/Vol] 103 mmol/L Normal 98-107 [facility] Comment on above: Performed By: #### L [id number], LAB17 ####Escort Vehicle Driver: MUSHTAQ MAGUIRE ([id number])[facility] (SBHLAB)[address] CO2 [Moles/Vol] 18 mmol/L Low 23-31 [facility] Comment on above: Performed By: #### L [id number], LAB17 ####Escort Vehicle Driver: MUSHTAQ MAGUIRE ([id number])[facility] (SBHLAB)[address] Creatinine [Mass/Vol] 1.41 mg/dL High 0.57-1.11 [facility] Comment on above: Performed By: #### L [id number], LAB17 ####Escort Vehicle Driver: MUSHTAQ MAGUIRE ([id number])[facility]ENTERJuliana [facility]ILL[facility] (SBHLAB)[address] [place] [address] [place] GLOMERULAR FILTRATION RATE ML/MIN/1.73 SQ M.PREDICTED 36.6 mL/min/1.73m*2 Low >60.0 [facility] Comment on above: Result Comment: Calc ulation based on the Chronic Kidney Disease Epidemiology Collaboration (CKD-EPI) equation refit without adjustment for race Performed By: #### L [id number], LAB17 ####Escort Vehicle Driver: MUSHTAQ MAGUIRE ([id number])[facility] [place]HE[place] (SBHLAB)155 [place] [address] [place] Glucose [Mass/Vol] 548 mg/dL Critically high 82-115 [facility] Comment on above: Performed By: #### L [id number], LAB17 ####Escort Vehicle Driver: MUSHTAQ MAGUIRE ([id number])[facility] [place] (SBHLAB)[address] Potassium [Moles/Vol] 5.6 mmol/L High 3.5-5.1 [facility] Comment on above: Result Comment: [facility] potassium values may be up to 0.5 mmol/L lower than serum values. Performed By: #### L [id number], LAB17 ####Escort Vehicle Driver: MUSHTAQ MAGUIRE ([id number])[facility] [place] (SBHLAB)[address] Protein [Mass/Vol] 7.3 g/dL Normal 6.4-8.3 [facility] Comment on above: Performed By: #### L [id number], LAB17 ####Escort Vehicle Driver: MUSHTAQ MAGUIRE ([id number])[facility] (SBHLAB)[address] Sodium [Moles/Vol] 132 mmol/L Low 136-145 [facility] Comment on above: Performed By: #### L [id number], LAB17 ####Escort Vehicle Driver: MUSHTAQ MAGUIRE ([id number])[facility] [place] (SBHLAB)[address] Urea nitrogen [Mass/Vol] 33 mg/dL High 9-23 [facility] Comment on above: Performed By: #### L [id number], LAB17 ####Escort Vehicle Driver: MUSHTAQ MAGUIRE ([id number])[facility] [place] (SBHLAB)[address] Comprehensive metabolic 1998 panelOrdered By: Negra Nelson on 09-18-2024 Albumin [Mass/Vol] 3.6 g/dL 3.4 - 4.8 g/dL [facility] ALP [Catalytic activity/Vol] 102 U/L 40 - 150 U/L [facility] ALT [Catalytic activity/Vol] 16 U/L NINF - 30 U/L [facility] Anion gap [Moles/Vol] 11 mmol/L 3 - 13 mmol/L [facility] AST [Catalytic activity/Vol] 20 U/L NINF - 34 U/L [facility] Bilirubin [Mass/Vol] 0.4 mg/dL NINF - 1.2 mg/dL [facility] Calcium [Mass/Vol] 9.2 mg/dL 8.8 - 10. 0 mg/dL [facility] Chloride [Moles/Vol] 103 mmol/L 98 - 10 7 mmol/L [facility] CO2 [Moles/Vol] 18 mmol/L Low 23 - 31 mmol/L [facility] Creatinine [Mass/Vol] 1.41 mg/dL High 0.57 - 1.11 mg/dL [facility] GFR/1.73 sq M.predicted (S/P/Bld) [Vol rate/Area] 36.6 mL/min Low - PINF [facility] Comment on above: Calculation based on the Chronic Kidney Disease Epidemiology Collaboration (CKD-EPI) equation refit without adjustment for race Glucose [Mass/Vol] 548 mg/dL Critically high 82 - 1 15 mg/dL [facility] Interpretation and review of laboratory results Abnormal [facility] Potassium [Moles/Vol] 5.6 mmol/L High 3.5 - 5.1 mmol/L [facility] Comment on above: Plasma potassium ashley ues may be up to 0.5 mmol/L lower than serum values. Protein [Mass/Vol] 7.3 g/dL 6.4 - 8.3 g/dL [facility] Sodium [Moles/Vol] 132 mmol/L Low 136 - 145 mmol/L [facility] Urea nitrogen [Mass/Vol] 33 mg/dL High 9 - 23 mg/dL [facility] ED Provider Noteon ED Provider Note Normal [facility] Laboratory - Chemistry and C hemistry - challengeon 09-18-2024 Potassium [Moles/Vol] 4.5 mmol/L 3.5 - 5.1 mmol/L [facility] Comment on above: Plasma potassium ashley ues may be up to 0.5 mmol/L lower than serum values. Glucose [Mass/Vol] 394 mg/dL High 70 - 100 mg/dL [facility] Glucose [Mass/Vol] 354 mg/dL High 70 - 100 mg/dL [facility] Glucose [Mass/Vol] 390 mg/dL High 70 - 100 mg/dL [facility] Glucose [Mass/Vol] mg/dL High 70 - 100 mg/dL [facility] Comment on above: Caregiver Notified; Base excess Calc (BldV) [Moles/Vol] -6.8000 mmol/L Low -3.0 - 3.0 mmol/L [facility] CO2 (BldV) [Partial pressure] 36.7 mm[Hg] [facility] CO2 [Moles/Vol] 19.6 mmol/L Low 23.0 - 30.0 mmol/L [facility] HCO3 (Bld) [Moles/Vol] 18.5 mmol/L Low 21.0 - 30.0 mmol/L [facility] Oxygen (BldV) [Partial pressure] 27.7 mm[Hg] mm Hg [facility] pH (BldV) 7.32 [pH] 7.320 - 7.420 [facility] Beta hydroxybutyrate [Mass/Vol] 2.7 mg/dL NINF - 2.8 mg/dL [facility] Glucose [Mass/Vol] mg/dL High 70 - 100 mg/dL [facility] Comment on above: Caregiver Notified; Confirmation Drawn; Repeated Test; Laboratory - Hematology and Cell countson 09-18-2024 Hemoglobin (Bld) [Mass/Vol] 14.6 g/dL Screen only [facility] SocialMatica No Panel Informationon 09-18 Interpretation and review of laboratory results Abnormal [facility] Performed by: [facility], [address] [place] [address] CLIA ID: [id number] [facility] SocialMatica [facility] Interpretation and review of laboratory results Abnormal [facility] Performed by: [facility], [address] [place] [address] CLIA ID: [id number] [facility] SocialMatica [facility] Interpretation and review of laboratory results Abnormal [facility] Performed by: [facility], [address] [place] [address] CLIA ID: [id number] [facility] SocialMatic[employer] [facility] Interpretation and review of laboratory results Abnormal [facility] Performed by: [facility], [address] [place] [address] CLIA ID: [id number] [facility] [employer] Interpretation and review of laboratory results Abnormal [facility] Source Of Oxygen Room Air [facility] Assessment of oxygen ation is best done with an arterial blood gas determination. Reference ranges for pO2, bicarbonate, and base excess are for mixed venous blood. Specimens drawn from a peripheral vein will often have higher values. [facility] Interpretation and review of laboratory results Normal [facility] Interpretation and review of laboratory results Abnormal [facility] Performed by: [facility], [address] [place] [address] CLIA ID: [id number] [facility] POTASSIUMon 09-18-2024 Potassium [Moles/Vol] 4.5 mmol/L Normal 3.5-5.1 [facility] Comment on above: Result Comment: [facility] potassium values may be up to 0.5 mmol/L lower than serum values. Performed By: #### L [id number] ####Escort Vehicle Driver: MUSHTAQ MAGUIRE ([id number])[facility]ENTERJuliana HSIEH (SBHLAB)[address] [place] [address] Potassium [Moles/Vol]on Interpretation and review of laboratory results Normal [facility] Urinalysis complete panel (U )Ordered By: Mikal Cortez on 09-18-2024 Bacteria LM.HPF (Urine sed) [#/Area] Moderate Abnormal Negative /HPF [facility] Bilirubin Ql (U) Negative Negative mg/dL [facility] Clarity (U) Clear Clear [facility] Color (U) Colorless Lt. Yellow [facility] Epithelial cells.squamous LM.HPF (Urine sed) [#/Area] 0-2 [facility] Glucose Ql (U) >1,000 Abnormal Normal (<70) mg/dL [facility] Hemoglobin Ql (U) Negative Negative mg/dL [facility] Interpretation and review of laboratory results Abnormal [facility] Ketones (U) [Mass/Vol] Negative Negat eddie mg/dL [facility] Leukocyte esterase Test strip Ql (U) Negative Negative Baljit/uL [facility] Nitrite Ql (U) Positive Abnormal Negative [facility] pH (U) 5.0 [pH] 5.0 - 8.0 pH [facility] Protein (U) [Mass/Vol] Negative Negat eddie mg/dL [facility] RBC LM.HPF (Urine sed) [#/Area] 0-2 [facility] Specific gravity (U) [Rel density] 1.024 1.005 - 1.030 [facility] Urobilinogen (U) [Mass/Vol] Normal Normal (0-1) mg/dL [facility] WBC LM.HPF (Urine sed) [#/Area] 3-5 [facility] Vital signson 09-18-2024 Oxygen saturation in Venous blood 46.3 % [facility] BASIC METABOLIC PANELon Anion gap [Moles/Vol] 7 mmol/L Normal 3-13 [facility] Comment on above: Performed By: #### L AB15 ####Escort Vehicle Driver: BROOKE RINCON ([id number])[facility]ENTER[facility]iana MEADRODOLFO [place]TM[place] (SWRLAB)[address] Calcium [Mass/Vol] 8.9 mg/dL Normal 8.8-10.0 [facility] Comment on above: Performed By: #### L AB15 ####Escort Vehicle Driver: BROOKE RINCON ([id number])[facility]ENTERJul[facility] MEADRODOLFO RITTMAN (SWRLAB)[address] [place] [address] [place] Chloride [Moles/Vol] 104 mmol/L Normal 98-107 [facility] Comment on above: Performed By: #### L AB15 ####Escort Vehicle Driver: BROOKE RINCON ([id number])[facility]ENTERJuliana MEADRODOLFO RITTMAN (SWRLAB)[address] [place] [address] [place] CO2 [Moles/Vol] 22 mmol/L Low 23-31 [facility] Comment on above: Performed By: #### L AB15 ####Escort Vehicle Driver: BROOKE RINCON ([id number])[facility]ENTER[facility] MEADRODOLFO RITTMAN (SWRLAB)[address] [place] [address] [place] Creatinine [Mass/Vol] 1.22 mg/dL High 0.57-1.11 [facility] Comment on above: Performed By: #### L AB15 ####Escort Vehicle Driver: BROOKE RINCON ([id number])[facility]ENTERJuliana GABRIELRODOLFO RITTMAN (SWRLAB)[address] GLOMERULAR FILTRATION RATE ML/MIN/1.73 SQ M.PREDICTED 43.6 mL/min/1.73m*2 Low >60.0 [facility] Comment on above: Result Comment: Calc ulation based on the Chronic Kidney Disease Epidemiology Collaboration (CKD-EPI) equation refit without adjustment for race Performed By: #### L AB15 ####Escort Vehicle Driver: BROOKE RINCON ([id number])[facility]ENTERJuliana SOLORIOTMAN (SWRLAB)[address] [place] [address] [place] Glucose [Mass/Vol] 484 mg/dL Critically high 82-115 [facility] Comment on above: Performed By: #### L AB15 ####Escort Vehicle Driver: BROOKE RINCON ([id number])[facility]ENTER[facility]iana SOLORIOTMAN (SWRLAB)[address] [place] [address] [place] Potassium [Moles/Vol] 4.8 mmol/L Normal 3.5-5.1 [facility] Comment on above: Result Comment: [facility] potassium values may be up to 0.5 mmol/L lower than serum values. Performed By: #### L AB15 ####Escort Vehicle Driver: BROOKE RINCON ([id number])[facility]ENTERJuliana SOLORIOTMAN (SWRLAB)[address] [place] [address] [place] Sodium [Moles/Vol] 133 mmol/L Low 136-145 [facility] Comment on above: Performed By: #### L AB15 ####Escort Vehicle Driver: BROOKE RINCON ([id number])[facility]ENTERJuliana REYNOLDS RITTMAN (SWRLAB)[address] [place] [address] [place] Urea nitrogen [Mass/Vol] 22 mg/dL Normal 9-23 [facility] Comment on above: Performed By: #### L AB15 ####Escort Vehicle Driver: BROOKE RINCON ([id number])[facility]ENTERJul[facility] REYNOLDS RITTMAN (SWRLAB)[address] [place] [address] [place] Anion gap [Moles/Vol] 10 mmol/L Normal 3-13 [facility] Comment on above: Performed By: #### L AB15 ####Escort Vehicle Driver: BROOKE RINCON ([id number])[facility]ENTERJuliana REYNOLDS RITTMAN (SWRLAB)[address] [place] [address] [place] Calcium [Mass/Vol] 9.6 mg/dL Normal 8.8-10.0 [facility] Comment on above: Performed By: #### L AB15 ####Escort Vehicle Driver: BROOKE RINCON ([id number])[facility]ENTERJuliana REYNOLDS RITTMAN (SWRLAB)[address] [place] [address] [place] Chloride [Moles/Vol] 98 mmol/L Normal 98-107 [facility] Comment on above: Performed By: #### L AB15 ####Escort Vehicle Driver: BROOKE RINCON ([id number])[facility]ENTERJuliana REYNOLDS RITTMAN (SWRLAB)[address] [place] [address] [place] CO2 [Moles/Vol] 20 mmol/L Low 23-31 [facility] Comment on above: Performed By: #### L AB15 ####Escort Vehicle Driver: BROOKE RINCON ([id number])[facility]ENTERJuliana REYNOLDS RITTMAN (SWRLAB)[address] [place] [address] [place] Creatinine [Mass/Vol] 1.49 mg/dL High 0.57-1.11 [facility] Comment on above: Performed By: #### L AB15 ####Escort Vehicle Driver: BROOKE RINCON ([id number])[facility]ENTERJuliana REYNOLDS RITTMAN (SWRLAB)[address] [place] [address] [place] GLOMERULAR FILTRATION RATE ML/MIN/1.73 SQ M.PREDICTED 34.3 mL/min/1.73m*2 Low >60.0 [facility] Comment on above: Result Comment: Calc ulation based on the Chronic Kidney Disease Epidemiology Collaboration (CKD-EPI) equation refit without adjustment for race Performed By: #### L AB15 ####Escort Vehicle Driver: BROOKE RINCON ([id number])[facility] CENTERJuliaan REYNOLDS RITTMAN (SWRLAB)[address] [place] [address] [place] Glucose [Mass/Vol] 613 mg/dL Critically high 82-115 [facility] Comment on above: Performed By: #### L AB15 ####Escort Vehicle Driver: BROOKE RINCON ([id number])RODRIGO SOLORIOTMAN (SWRLAB)[address] [place] [address] Potassium [Moles/Vol] 5.8 mmol/L High 3.5-5.1 [facility] Comment on above: Result Comment: TCSi gnificant interference from hemolysis. Result integrity compromised. Interpret with caution. Performed By: #### L AB15 ####Escort Vehicle Driver: BROOKE RINCON ([id number])[facility]ENTERJuliana SOLORIOTMAN (SWRLAB)[address] [place] [address] Sodium [Moles/Vol] 128 mmol/L Low 136-145 [facility] Comment on above: Performed By: #### L AB15 ####Escort Vehicle Driver: BROOKE RINCON ([id number])[facility]ENTERJuliana SOLORIOTMAN (SWRLAB)[address] [place] [address] Urea nitrogen [Mass/Vol] 25 mg/dL High 9-23 [facility] Comment on above: Performed By: #### L AB15 ####Escort Vehicle Driver: BROOKE RINCON ([id number])[facility]ENTERJuliana SOLORIOTMAN (SWRLAB)[address] [place] [address] BETA HYDROXYBUTYRATEon 09-17 BETA HYDROXYBUTYRATE 3.9 mg/dL High <=2.8 [facility] Comment on above: Performed By: #### L [id number] ####Escort Vehicle Driver: BROOKE RINCON ([id number])[facility]ENTERJuliana SOLORIOTMAN (SWRLAB)[address] [place] [address] Basic metabolic 1998 panelon 09-17-2024 Anion gap [Moles/Vol] 7 mmol/L 3 - 13 mmol/L [facility] Calcium [Mass/Vol] 8.9 mg/dL 8.8 - 10. 0 mg/dL [facility] Chloride [Moles/Vol] 104 mmol/L 98 - 10 7 mmol/L [facility] CO2 [Moles/Vol] 22 mmol/L Low 23 - 31 mmol/L [facility] Creatinine [Mass/Vol] 1.22 mg/dL High 0.57 - 1.11 mg/dL [facility] GFR/1.73 sq M.predicted (S/P/Bld) [Vol rate/Area] 43.6 mL/min Low - PINF [facility] Comment on above: Calculation based on the Chronic Kidney Disease Epidemiology Collaboration (CKD-EPI) equation refit without adjustment for race Glucose [Mass/Vol] 484 mg/dL Critically high 82 - 1 15 mg/dL [facility] Interpretation and review of laboratory results Abnormal [facility] Potassium [Moles/Vol] 4.8 mmol/L 3.5 - 5.1 mmol/L [facility] Comment on above: Plasma potassium ashley ues may be up to 0.5 mmol/L lower than serum values. Sodium [Moles/Vol] 133 mmol/L Low 136 - 145 mmol/L [facility] Urea nitrogen [Mass/Vol] 22 mg/dL 9 - 23 mg/dL [facility] Basic metabolic 1998 panelOr dered By: Mahnaz Jaimes on 09-17-2024 Anion gap [Moles/Vol] 10 mmol/L 3 - 13 mmol/L [facility] Calcium [Mass/Vol] 9.6 mg/dL 8.8 - 10. 0 mg/dL [facility] Chloride [Moles/Vol] 98 mmol/L 98 - 10 7 mmol/L [facility] CO2 [Moles/Vol] 20 mmol/L Low 23 - 31 mmol/L [facility] Creatinine [Mass/Vol] 1.49 mg/dL High 0.57 - 1.11 mg/dL [facility] GFR/1.73 sq M.predicted (S/P/Bld) [Vol rate/Area] 34.3 mL[facility]min [facility] Comment on above: Calculation based on the Chronic Kidney Disease Epidemiology Collaboration (CKD-EPI) equation refit without adjustment for race Glucose [Mass/Vol] 613 mg/dL Critically high 82 - 1 15 mg/dL [facility] Interpretation and review of laboratory results Abnormal [facility] Potassium [Moles/Vol] 5.8 mmol/L High 3.5 - 5.1 mmol/L [facility] Comment on above: TC Significant interference from hemolysis. Result integrity compromised. Interpret with caution. Sodium [Moles/Vol] 128 mmol/L Low 136 - 145 mmol/L [facility] Urea nitrogen [Mass/Vol] 25 mg/dL High 9 - 23 mg/dL [facility] ED Nursing Noteon 09-17-2024 ED Nursing Note Lab called with yulissa reyes high blood sugar of 613. Physician aware. Normal [facility] ED Nursing Note Brought by son for h igh blood sugar readings today. Pt with no complaints. States has had breakfast, cookies, pretzels and ice cream today. Alert and oriented to self and place only-not new per family. Blood sugar 581 Normal [facility] ED Provider Noteon ED Provider Note Normal [facility] GLUCOSE, RANDOMon 09-17-2024 Glucose [Mass/Vol] 539 mg/dL Critically high 82-115 [facility] Comment on above: Result Comment: CARLTON Geiger COMMENTS:A normal fasting glucose concentration is less than 100 mg/dL. An impaired fasting glucose concentration is 100-125 mg/dL. A provisional diagnosis of diabetes mellitus can be made when a fasting glucose concentration is greater than 125 mg/dL. Performed By: #### L AB82 ####Escort Vehicle Driver: BROOKE RINCON ([id number])[facility] ([facility])[address] [place] [address] Glucose (Bld) [Mass/Vol]Ginae red By: Gómez Quinn on 09-17-2024 Glucose [Mass/Vol] 539 mg/dL Critically high 82 - 1 15 mg/dL [facility] Interpretation and review of laboratory results Abnormal [facility] A normal fasting glu cose concentration is less than 100 mg/dL. An impaired fasting glucose concentration is 100-125 mg/dL. A provisional diagnosis of diabetes mellitus can be made when a fasting glucose concentration is greater than 125 mg/dL. [facility] Laboratory - Chemistry and C hemistry - challengeon 09-17-2024 Glucose [Mass/Vol] mg/dL High 70 - 100 mg/dL [facility] Comment on above: Result Not Confirmed ; Beta hydroxybutyrate [Mass/Vol] 3.9 mg/dL High NINF - 2.8 mg/dL [facility] Glucose [Mass/Vol] mg/dL High 70 - 100 mg/dL [facility] Comment on above: Caregiver Notified; No Panel Informationon 09-17 Interpretation and review of laboratory results Abnormal [facility] Performed by: [facility], [address] [place] [address] CLIA ID: [id number] [facility] Interpretation and review of laboratory results Abnormal [facility] Interpretation and review of laboratory results Abnormal [facility] Performed by: [facility], [address] [place] [address] CLIA ID: [id number] [facility] CBC WITH DIFFERENTIALon 05-12 ABSOLUTE BASOPHIL 0.0 [...] By: #### C BCD #### MICHEL Colon ([id number]) [employer] ([id number]) [address] [place] [address] Basophils/100 WBC (Bld) 0.3 % Normal 0.0-2.0 [facility] Comment on above: Performed By: #### C BCD #### MICHEL Colon ([id number]) [employer] ([id number]) [address] [place] [address] Differential cell count method Nom (Bld) AUTOMATIC METHOD Normal [facility] Comment on above: Performed By: #### C BCD #### MICHEL Colon ([id number]) [employer] ([id number]) [address] [place] [address] Eosinophils (Bld) [#/Vol] 0.1 10*3/uL Normal 0.0-0.5 [facility] Comment on above: Performed By: #### C BCD #### MICHEL Colon ([id number]) [facility] ([id number]) [address] [place] [address] Eosinophils/100 WBC (Bld) 2.0 % Normal 0.0-5.0 [facility] Comment on above: Performed By: #### C BCD #### MICHEL Colon ([id number]) [facility] ([id number]) [address] [place] [address] Erythrocyte distribution width (RBC) [Ratio] 12.7 % Normal <15.1 [employer] Comment on above: Performed By: #### C BCD #### MICHEL Colon ([id number]) [facility] ([id number]) [address] [place] [address] Hematocrit (Bld) [Volume fraction] 38.9 % Normal 34.0-49.0 [employer] Comment on above: Performed By: #### C BCD #### MICHEL Colon ([id number]) [facility] ([id number]) [address] [place] [address] Hemoglobin (Bld) [Mass/Vol] 12.5 g/dL Normal 11.2-15.7 [employer] Comment on above: Performed By: #### C BCD #### MICHEL Colon ([id number]) [facility] ([id number]) [address] [place] [address] Immature granulocytes (Bld) [#/Vol] 0.0 10*3/uL Normal 0.0-0.1 [employer] Comment on above: Performed By: #### C BCD #### MICHEL Colon ([id number]) [facility] ([id number]) [address] [place] [address] Immature granulocytes/100 WBC (Bld) 0.5 % Normal <1 [employer] Comment on above: Performed By: #### C BCD #### MICHEL Colon ([id number]) [facility] ([id number]) [address] [place] [address] Lymphocytes (Bld) [#/Vol] 1.1 10*3/uL Normal 0.9-4.1 [employer] Comment on above: Performed By: #### C BCD #### MICHEL Colon ([id number]) [facility] [employer] ([id number]) [address] [place] [address] Lymphocytes/100 WBC (Bld) 16.5 % Normal 14.0-51.0 [employer] Comment on above: Performed By: #### C BCD #### MICHEL Colon ([id number]) [facility] [employer] ([id number]) [address] [place] [address] MCH (RBC) [Entitic mass] 31.4 pg Normal 26.0-34.0 [facility] Comment on above: Performed By: #### C BCD #### MICHEL Colon ([id number]) [facility] [employer] ([id number]) [address] [place] [address] MCHC (RBC) [Mass/Vol] 32.1 g/dL Normal 30.7-35.5 [facility] puNet Comment on above: Performed By: #### C BCD #### MICHEL Colon ([id number]) [facility] [employer] [facility] ([id number]) [address] [place] [address] MCV (RBC) [Entitic vol] 97.7 fL Normal 80.0-100.0 [employer] Comment on above: Performed By: #### C BCD #### MICHEL Colon ([id number]) [facility] [employer] ([id number]) [address] [place] [address] Monocytes (Bld) [#/Vol] 0.7 10*3/uL Normal 0.2-1.0 [employer] Comment on above: Performed By: #### C BCD #### MICHEL Colon ([id number]) [facility] [employer] ([id number]) [address] [place] [address] Monocytes/100 WBC (Bld) 10.7 % Normal 4.0-12.0 [employer] Comment on above: Performed By: #### C BCD #### MICHEL Colon ([id number]) [facility] [employer] ([id number]) [address] [place] [address] Neutrophils (Bld) [#/Vol] 4.5 10*3/uL Normal 1.8-7.5 [employer] Comment on above: Performed By: #### C BCD #### MICHEL Colon ([id number]) [facility] ([id number]) [address] [place] [address] Neutrophils/100 WBC (Bld) 70.0 % Normal 42.0-80.0 [employer] Comment on above: Performed By: #### C BCD #### MICHEL Colon ([id number]) [facility] [employer] ([id number]) [address] [place] [address] Platelet mean volume (Bld) [Entitic vol] 11.5 fL Normal 7.2-11.7 [employer] Comment on above: Performed By: #### C BCD #### MICHEL Colon ([id number]) [facility] [employer] ([id number]) [address] [place] [address] Platelets (Bld) [#/Vol] 234 10*3/uL Normal 140-400 [employer] Comment on above: Performed By: #### C BCD #### MICHEL Colon ([id number]) [facility] [employer] ([id number]) [address] [place] [address] RBC (Bld) [#/Vol] 3.98 10*6/uL Normal 3.95-5.26 [employer] Comment on above: Performed By: #### C BCD #### MICHEL Colon ([id number]) [facility] ([id number]) [address] [place] [address] Reticulocytes/100 RBC (Bld) 0.0 /100 WBC Normal 0 [employer] Comment on above: Performed By: #### C BCD #### MICHEL Colon ([id number]) [facility] ([id number]) [address] [place] [address] WBC (Bld) [#/Vol] 6.4 10*3/uL Normal 3.5-10.9 [employer] et Comment on above: Performed By: #### C BCD #### MICHEL Colon ([id number]) [facility] ([id number]) [address] [place] [address] COMPREHENSIVE METABOLIC PANE David 05-22-2024 Albumin [Mass/Vol] 4.2 g/dL Normal 3.5-5.2 [employer] et Comment on above: Performed By: #### C MP #### MICHEL Colon ([id number]) [facility] [employer] ([id number]) [address] [place] [address] Albumin/Globulin [Mass ratio] 1.7 {ratio} Normal 0.8-2.6 [employer] Comment on above: Performed By: #### C MP #### MICHEL Colon ([id number]) [facility] [employer] ([id number]) [address] [place] [address] ALP [Catalytic activity/Vol] 62 U/L Normal 23-144 [employer] Comment on above: Performed By: #### C MP #### MICHEL Colon ([id number]) [facility] ([id number]) [address] [place] [address] ALT [Catalytic activity/Vol] 18 U/L Normal 0-60 [employer] Comment on above: Performed By: #### C MP #### MICHEL Colon ([id number]) [facility] ([id number]) [address] [place] [address] AST [Catalytic activity/Vol] 16 U/L Normal 0-55 [employer] Comment on above: Performed By: #### C MP #### MICHEL Colon ([id number]) [employer] ([id number]) [address] [place] [address] Bilirubin [Mass/Vol] 0.3 mg/dL Normal 0.0-1.2 [employer] Comment on above: Performed By: #### C MP #### MICHEL Colon ([id number]) [employer] ([id number]) [address] [place] [address] Calcium [Mass/Vol] 9.6 mg/dL Normal 8.5-10.5 [employer] et Comment on above: Performed By: #### C MP #### MICHEL Colon ([id number]) [employer] ([id number]) [address] [place] [address] Chloride [Moles/Vol] 103 mmol/L Normal 96-110 [facility] [employer] Comment on above: Performed By: #### C MP #### MICHEL Colon ([id number]) [employer] ([id number]) [address] [place] [address] CO2 [Moles/Vol] 23 mmol/L Normal 19-32 [employer] Comment on above: Performed By: #### C MP #### MICHEL Colon ([id number]) [employer] ([id number]) [address] [place] [address] Creatinine [Mass/Vol] 1.0 mg/dL Normal 0.5-1.2 Com [employer] Comment on above: Performed By: #### C MP #### MICHEL Colon ([id number]) [employer] ([id number]) [address] [place] [address] eGFRcr SerPlBld CKD-EPI 2020 55 MLS/MIN/1.73M2 Low >60 [employer] Comment on above: Performed By: #### C MP #### MICHEL Colon ([id number]) [employer] ([id number]) [address] [place] [address] Globulin (S) [Mass/Vol] 2.5 g/dL Normal 1.9-3.6 [employer] Comment on above: Performed By: #### C MP #### MICHEL Colon ([id number]) [employer] ([id number]) [address] [place] [address] Glucose [Mass/Vol] 275 mg/dL High 70-99 [employer] et Comment on above: Result Comment: (NOT E) The [place] Diabetic Association recommends the following guidelines: MG/DL <100 = NORMAL GLUCOSE 100-125= IMPAIRED FASTING GLUCOSE >=126 = PROVISIONAL DIAGNOSIS OF DIABETES ADA Workgroup Report, Diabetic Care, volume 40, August 2016 Performed By: #### C MP #### MICHEL Colon ([id number]) [employer] ([id number]) [address] [place] [address] Potassium [Moles/Vol] 4.7 mmol/L Normal 3.4-5.3 Com puNet Comment on above: Performed By: #### C MP #### MICHEL Colon ([id number]) [employer] ([id number]) [address] [place] [address] Protein [Mass/Vol] 6.7 g/dL Normal 6.0-8.3 [employer] et Comment on above: Performed By: #### C MP #### MICHEL Colon ([id number]) [employer] ([id number]) [address] [place] [address] Sodium [Moles/Vol] 138 mmol/L Normal 135-148 [employer] et Comment on above: Performed By: #### C MP #### MICHEL Colon ([id number]) [employer] ([id number]) [address] [place] [address] Urea nitrogen [Mass/Vol] 24 mg/dL Normal 3-29 [employer] Comment on above: Performed By: #### C MP #### MICHEL Colon ([id number]) [employer] ([id number]) [address] [place] [address] Urea nitrogen/Creatinine [Mass ratio] 24 mg/mg Normal 7-25 [employer] Comment on above: Performed By: #### C MP #### MICHEL LACKEYDave Colon ([id number]) [facility] ([id number]) [address] [place] [address] Fasting status Reported Ql FASTING Normal [facility] Comment on above: Performed By: #### C MP #### MICHELMARTIN Colon ([id number]) [facility] ([id number]) [address] [place] [address] Albumin [Mass/Vol] 4.2 g/dL Normal 3.5-5.2 Provid [...] on above: Result Comment: (NOT E) The [place] Diabetic Association recommends the following guidelines: MG/DL [...] on above: Result Comment: (NOT E) The [place] Diabetic Association recommends the following Guidelines: 5.7-6.4% Indicates increased risk for diabetes (Prediabetes). >6.5% Diagnostic of diabetes. In the absence of unequivocal hyperglycemia, results should be confirmed by repeat test. <7% Glycemic recommendation for non adults with diabetes. [place] Diabetes Association, Standards of Medical Care in Diabetes, Volume 40; 2017 HGB A1C WITH EST.GLUCon 05-12 Average glucose Estimated from glycated hemoglobin (Bld) [Mass/Vol] 252 mg/dL Normal [employer] Comment on above: Performed By: #### A 1CEG #### MICHEL Colon ([id number]) [employer] ([id number]) [address] [place] [address] HbA1c (Bld) [Mass fraction] 10.4 % High <5.7 [employer] Comment on above: Result Comment: (NOT E) The [place] Diabetic Association recommends the following Guidelines: 5.7-6.4% Indicates increased risk for diabetes (Prediabetes). >6.5% Diagnostic of diabetes. In the absence of unequivocal hyperglycemia, results should be confirmed by repeat test. <7% Glycemic recommendation for non adults with diabetes. [place] Diabetes Association, Standards of Medical Care in Diabetes, Volume 40; 2017 Performed By: #### A 1CEG #### MICHEL Colon ([id number]) [employer] ([id number]) [address] [place] [address] LIPID PANEL (CORONARY RISK)o n 05-22-2024 Cholesterol [...] have modest increases in Triglyceride levels ([facility] [employer] [facility], 2019) LIPID PROFILEon 05-22-2024 Cholesterol [Mass/Vol] 94 mg/dL Normal <200 Co mpuNet Comment on above: Result Comment: (NOT E) DESIRABLE: <200 MG/DL BORDERLINE: 200-239 MG/DL HIGHER RISK: >239 MG/DL Performed By: #### L IPID #### MICHEL Colon ([id number]) [employer] ([id number]) [address] [place] [address] Cholesterol in HDL [Mass/Vol] 33 mg/dL Low >59 [employer] Comment on above: Result Comment: (NOT E) DESIRABLE: > OR = 60 MG/DL HIGHER RISK: <40 MG/DL Performed By: #### L IPID #### MICHEL Colon ([id number]) [employer] ([id number]) [address] [place] [address] Cholesterol in LDL [Mass/Vol] UNABLE TO CALCULATE DUE TO THE ELEVATED TRIGLYCERIDES. Normal <100 [employer] Comment on above: Result Comment: (NOT E) OPTIMAL: <100 MG/DL NEAR/ABOVE OPTIMAL:100-129 MG/DL BORDERLINE HIGH: 130-159 MG/DL HIGH: 160-189 MG/DL VERY HIGH: > OR = 190 MG/DL Performed By: #### L IPID #### MICHELMARTIN Colon ([id number]) [employer] ([id number]) [address] [place] [address] Cholesterol in VLDL [Mass/Vol] 71 mg/dL High 4-38 [facility] Comment on above: Performed By: #### L IPID #### MICHEL Colon ([id number]) [employer] ([id number]) [address] [place] [address] Triglyceride [Mass/Vol] 353 mg/dL High <150 [facility] Comment on above: Result Comment: (NOT E) NORMAL: <150 MG/DL BORDERLINE HIGH: 150-199 MG/DL HIGH: 200-499 MG/DL VERY HIGH: > OR = 500 MG/DL Nonfasting specimens may have modest increases in Triglyceride levels ([employer], 2019) Performed By: #### L IPID #### MICHEL Colon ([id number]) [employer] ([id number]) [address] [place] [address] NURSING NOTEon 05-22-2024 Manager Personnel Selection Authentication Interface Message Text Patient here for follow up med check. This will be here last visit. She is moving to [facility] next weekend. Normal Provider Locations PROGRESS NOTESon 05-22-2024 Manager Personnel Selection Authentication Interface Message Text ASSESSMENT ICD-10-CM ICD-9-CM [...] here last visit. She is moving to [facility] next weekend. HISTORY OF PRESENT ILLNESS: Hanna [...] By: #### R TSH #### MICHEL Colon ([id number]) [facility] ([id number]) [address] [place] [address] TSH 3.840 MCIU/ML Normal 0.400-4.50 0 Provider Locations CARE PLANon 03-19-2024 Manager Personnel Selection Authentication Interface Message Text SQ debridement completed by CLIFF. Pt tolerated well. Continue current POC. Normal [facility] STAFF[facility] 03-19-2024 Manager Personnel Selection Authentication Interface Message Text [facility] 03/19/2024 Patient Name: Hanna Nelson [...] (HC CODE) Cellulitis of right lower leg ANYELY, resolved Mixed hyperlipidemia Education regarding disease process, [...] for the 03/19/24 encounter (Hospital Encounter) with [facility] 4. Allergies Allergen Reactions [...] - 99 MG/DL Final Comment: (NOTE) The [place] Diabetic Association recommends the following guidelines: MG/DL <100 = NORMAL GLUCOSE 100-125= IMPAIRED FASTING GLUCOSE >=126 = PROVISIONAL DIAGNOSIS OF DIABETES ADA Workgroup Report, Diabetic Care, volume 40, August 2016 Glucose Date Value Ref Range Status 11/12/2023 148 70 (more content not included)... Normal [facility] CARE PLANon 03-05-2024 Manager Personnel Selection Authentication Interface Message Text Stable. Continue POC. Normal [facility] STAFFon 03-05-2024 Manager Personnel Selection Authentication Interface Message Text [facility] 03/05/2024 Patient Name: Hanna [...] 03/05/24 1319 Primary Dressing Collagens;Antimicrobial;Alg inate 03/05/24 135 Secondary Dressing Foam Dressing-Silicone Boarder 03/05/24 1359 [...] for the 03/05/24 encounter (Hospital Encounter) with [facility] 4. Allergies Allergen Reactions [...] - 99 MG/DL Final Comment: (NOTE) The [place] Diabetic Association recommends the following guidelines: MG/DL <100 = NORMAL GLUCOSE 100-125= IMPAIRED FASTING GLUCOSE >=126 = PROVISIONAL DIAGNOSIS OF DIABETES ADA Workgroup Report, Diabe (more content not included)... Normal [facility] CARE PLANon 01-30-2024 Manager Personnel Selection Authentication Interface Message Text Continue POC. Normal [facility] MEDICAL STAFFon 01-30-2024 Manager Personnel Selection Authentication Interface Message Text [facility] 01/30/2024 Patient Name: Hanna [...] with drainage 01/30/24 1300 Wound Bed Appearance [place] 01/30/24 1300 Drainage Amount Moderate 01/30/24 1300 [...] for the 01/30/24 encounter (Hospital Encounter) with [facility] 5. Allergies Allergen Reactions [...] - 99 MG/DL Final Comment: (NOTE) The [place] Diabetic Association recommends the following guidelines: MG/DL <100 = NORMAL GLUCOSE 100-125= IMPAIRED FASTING GLUCOSE >=126 = (more content not included)... Normal [facility] STAFFon 01-23-2024 Manager Personnel Selection Authentication Interface Message Text [facility] 01/23/2024 Patient Name: Hanna Nelson : 1940 AGE: [age] year old GENDER: Female Chief Complaint/Reason for Visit Hanna Nelson is a 81 year old female who presents today for wound care of chronic wound on the bottom of the right foot. Nothing new. Had a good time on her vacation to [place]. Thinks that she possibly missed an appointment with her facilities director to hand picker her new diabetic inserts and shoes [...] with drainage 01/23/24 1300 Wound Bed Appearance [place] 01/23/24 1300 Drainage Amount Moderate 01/23/24 1300 [...] for the 01/23/24 encounter (Hospital Encounter) with [facility] 1. Allergies Allergen Reactions [...] - 99 MG/DL Final Comment: (NOTE) The [place] Diabetic Association recommends the following guidelines: MG/DL <100 = NORMAL (more content not included)... Normal [facility] NURSING NOTEon 01-13-2024 Manager Personnel Selection Authentication Interface Message Text Why are you [...] [x] Normal Provider Locations PATIENT INSTRUCTIONSon 01-12 Manager Personnel Selection Authentication Interface Message Text Thank you for choosing [facility] for your cardiology care. During your visit today, we reviewed and confirmed your cardiac medications along with medication prescribed by your other healthcare team members. Please be sure to discuss any changes to medication with your providers. Please bring a list of ALL medications (or the bottles) with you to EVERY appointment. Also include vitamins and dhxy-yaf-aksebyd medications. Did your provider order testing today? If yes, then you will receive your results in three possible ways. You can receive a [employer] message, a phone call, or letter in the mail. Please note, if you are an active [employer] user, some of your testing will be available within 1-2 days. If blood work was ordered at your visit, an order has already been placed to [facility]. Please contact your nearest [facility] location to schedule an appointment or visit siXis/locations. If we are unable to schedule your testing, you are welcome to contact central scheduling to make those appointment(s) at [phone]. Your provider has made a recommendation for [...] immediately. It's easy to register for a [employer] account if you don't already have one. With a [employer] account you can manage your health record, view test results, schedule appointments and more. Visit [employer] to request your [employer]TM[employer] account today. For any questions or issues with your [employer] accounts, please call [phone] Dr. Hernandez's clinical staff can be reached at the following phone number: [phone] Press Option 2 for Clinical Staff Then Press Option 6 again for Suzanne LOREDO for Dr. Hernandez Normal Provider Locations PROGRESS NOTESon 01-13-2024 Manager Personnel Selection Authentication Interface Message Text [address] [place], [place] [address] CARDIOLOGY NEW PATIENT ENCOUNTER 01/14/2024 Patient Name: [...] of paroxysmal atrial fibrillation initially diagnosed in 2017 currently on Eliquis 5 mg twice a [...] Generalized ? Back pain ? Charcot's arthropathy 2016 Right Foot Ulcer ? COVID-19 07/26/2020 ? [...] EPIDURAL BLOCK 09/02/2017 ? ECHO Historical 1987 [facility]- ? Why -Results Good ? EPIDURAL LUMBAR TRANSFORMINAL Left 03/25/2017 L3-L4 ? LAMINECTOMY DECOMPRESSION POSTERIOR 3 LEVEL N/A 10/22/2017 LAMINECTOMY DECOMPRESSION POSTERIOR 3 LEVEL performed by Adolfo Edwards MD at [facility] MAIN OR ? LIG/TRNSXJ FLP TUBE ABDL/VAG APPR UNI/BI Ligation or Transection of Fallopian Tubes, Unilat or Bilat ? LUMBAR TRANSFORAMINAL EPIDURAL 04/29/2017 L4-L5 ? Other Surgical History Left 01/24/2015 Left Foot Metatarsal Head Bone Biopsy per Dr Ann Vasquez @ [facility] ? Other Surgical History Right 10/17/2015 Irigation W/Sharp Excisional Debridement Right Foot. Mid Foot Exostectomy per Dr Ann Vasquez @ [facility] ? 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 Other Surgical History 2009 Fractured Hip ? REMOVAL GALLBLADDER [facility] ? WOUND VAC APPLICATION/CHANGE N/A 10/22/2017 WOUND VAC APPLICATION/CHANGE performed by Adolfo Edwards MD at [facility] MAIN OR ALLERGIES: Allergies Allergen Reactions ? [...] included)... Normal Provider Locations CARE PLANon 01-09-2024 Manager Personnel Selection Authentication Interface Message Text No wound progression. Normal [facility] MEDICAL STAFFon 01-09-2024 Manager Personnel Selection Authentication Interface Message Text [facility] Patient Name: Hanna Nelson [...] with drainage 01/09/24 1400 Wound Bed Appearance [place] 01/09/24 1400 Drainage Amount Moderate 01/09/24 1400 [...] with drainage 12/19/23 1200 Wound Bed Appearance [place] 12/19/23 1200 Drainage Amount Moderate 12/19/23 1200 [...] medicated soaks 12/19/23 1200 Wound Bed Appearance [place] 12/19/23 1200 Drainage Amount Moderate 12/19/23 1200 Drainage Appearance Yellow 12/19/23 1200 Odor None 12/19/23 1200 W (more content not included)... Normal [facility] CARE PLANon 12-19-2023 Manager Personnel Selection Authentication Interface Message Text Progressing. Normal [facility] MEDICAL STAFFon 12-19-2023 Manager Personnel Selection Authentication Interface Message Text [facility] 12/19/2023 Patient Name: Hanna [...] the area as directed -Patient going to [place] for 10 days. She will be gone [...] with drainage 12/19/23 1200 Wound Bed Appearance [place] 12/19/23 1200 Drainage Amount Moderate 12/19/23 1200 [...] medicated soaks 12/19/23 1200 Wound Bed Appearance [place] 12/19/23 1200 Drainage Amount Moderate 12/19/23 1200 [...] for the 12/19/23 encounter (Hospital Encounter) with [facility] 1. Allergies Allergen Reactions [...] 10/21/2020 13 (more content not included)... Normal [facility] PROGRESS NOTESon 12-16-2023 Manager Personnel Selection Authentication Interface Message Text ASSESSMENT ICD-10-CM ICD-9-CM [...] person, place, and time. Normal Provider Locations CARE PLANon 12-12-2023 Manager Personnel Selection Authentication Interface Message Text Progressing. Normal [facility] MEDICAL STAFFon 12-12-2023 Manager Personnel Selection Authentication Interface Message Text [facility] 12/12/2023 Patient Name: Hanna [...] with drainage 12/12/23 1400 Wound Bed Appearance [place] 12/12/23 1400 Drainage Amount Moderate 12/12/23 1400 [...] to air 12/12/23 1400 Wound Bed Appearance [place] 12/12/23 1400 Drainage Amount Small 12/12/23 1400 [...] for the 12/12/23 encounter (Hospital Encounter) with [facility] 1. Allergies Allergen Reactions [...] 135 135 (more content not included)... Normal [facility] NURSING NOTEon 12-02-2023 Manager Personnel Selection Authentication Interface Message Text Patient here for right shoulder pain. Inpatient for cellulitis right lower leg over . Normal Provider Locations PROGRESS NOTESon 12-02-2023 Manager Personnel Selection Authentication Interface Message Text ASSESSMENT ICD-10-CM ICD-9-CM [...] normal and symmetric. Normal Provider Locations CARE PLANon 11-25-2023 Manager Personnel Selection Authentication Interface Message Text Progressing. Normal [facility] MED[facility] STAFFon 11-25-2023 Manager Personnel Selection Authentication Interface Message Text [facility] 11/25/2023 Patient Name: Hanna Nelson [...] with drainage 11/25/23 1500 Wound Bed Appearance [place] 11/25/23 1500 Drainage Amount Small 11/25/23 1500 [...] for the 11/25/23 encounter (Hospital Encounter) with [facility] 2. Allergies Allergen Reactions [...] - 99 MG/DL Final Comment: (NOTE) The [place] [employer] recommends the following guide (more content not included)... Normal [facility] Bacteria Bld Culton 11-15-19 24 Bacteria identified Cx Nom (Bld) SPECIMEN TYPE VENOUS Bacteria Bld Cult NO GROWTH 5 DAYS Normal [facility] Comment on above: Performed By: #### 6 00-7 #### MICHEL Colon ([id number]) [facility] ([id number]) [address] [place] [address] CARE PLANon 11-14-2023 Manager Personnel Selection Authentication Interface Message Text Wound larger. SQ debridement completed by CLIFF. Normal [facility] MEDICAL STAFFon 11-14-2023 Manager Personnel Selection Authentication Interface Message Text [facility] [facility]2023 Patient Name: Hanna [...] diabetic shoes modified soon with her regular facilities director -Continue with daily local wound care to [...] for the 11/14/23 encounter (Hospital Encounter) with [facility] 4. Allergies Allergen Reactions [...] mEq/L Laila (more content not included)... Normal [facility] PROGRESS NOTESon 11-13-2023 Manager Personnel Selection Authentication Interface Message Text Post-Discharge Call DAY 1 11/13/2023 Patient Name: Hanna Nelson : 1940 Reason for Admission: Cellulitis of right lower leg Discharge Date: 11/12/23 Discharged From: [facility], [facility] PCU1 Discharge Disposition: D/C to Primary Residence (home or assisted) Future Appointments Date Time Provider Department Center 11/14/2023 1:30 PM [facility] 4 SWOUND [facility] 12/16/2023 11:15 AM Lisy Pace MD [facility] 01/10/2024 9:15 AM Sandi Hernandez, [facility] PCI [facility] 310 COVID-19 Plasma Screening Appointment Scheduling Information [...] Monahan RN, 11/13/2023 10:05 AM Normal Provider [facility] 11-12-2023 Manager Personnel Selection Authentication Interface Message Text Problem: Skin Integrity - Impaired Goal: Decrease in wound size 11/12/20231511 by Gin Kay RN Outcome: Completed 11/12/20231131 by Gin Kay RN Outcome: Progressing Goal: Skin integrity intact 11/12/20231511 by Gin Kay RN Outcome: Completed 11/12/20231131 by Gin Kay RN Outcome: Progressing Problem: Falls - Risk of Goal: Absence of falls Description: Avoid the routine use of bedrails or physical restraints as a fall-prevention intervention. 11/12/2023 151 by Gin Kay RN Outcome: Completed 11/12/20231131 by Gin Kay RN Outcome: Progressing Goal: Knowledge of fall prevention 11/12/20231511 by Gin Kay RN Outcome: Completed 11/12/20231131 [...] should include both nonpharmacologic and pharmacologic interventions. 11/12/20231511 by Gin Kay RN Outcome: Completed 11/12/20231131 [...] Goal: Glucose level within specified parameters 11/12/2023 151 by Gin Kay RN Outcome: Completed 11/12/2023 1132 by Gin Kay RN Outcome: Progressing Normal [facility] Manager Personnel Selection Authentication Interface Message Text Problem: Skin Integrity [...] level within specified parameters Outcome: Progressing Normal [facility] Manager Personnel Selection Authentication Interface Message Text Problem: Skin Integrity [...] Knowledge of diabetes self-management Outcome: Progressing Normal [facility] COMPLETE BLOOD COUNTon 11-11 Erythrocyte distribution width (RBC) [Ratio] 13.5 % NINF - 15.0 % [facility] Hematocrit (Bld) [Volume fraction] 32.0 % Low 34.0 - 49.0 % [facility] Hemoglobin (Bld) [Mass/Vol] 10.6 g/dL Low 11.2 - 15.7 g/dL [facility] Interpretation and review of laboratory results Abnormal [facility] MCH (RBC) [Entitic mass] 31.1 pg 26.0 - 34.0 pg [facility] MCHC (RBC) [Mass/Vol] 33.1 g/dL 30.7 - 35.5 g/dL [facility] MCV (RBC) [Entitic vol] 93.8 fL 80.0 - 100.0 fL [facility] Platelet mean volume (Bld) [Entitic vol] 10.8 fL 7.2 - 11.7 fL [facility] Platelets (Bld) [#/Vol] 191 10*3/uL 140 - 400 K/uL [facility] RBC (Bld) [#/Vol] 3.41 10*6/uL [facility] Scan Result [facility] WBC corrected for nucl RBC Auto (Bld) [#/Vol] 5.8 K/uL 3.5 - 10.9 K/uL [facility] Erythrocyte distribution width (RBC) [Ratio] 13.5 % Normal <=15.0 [facility] Comment on above: Performed By: #### P [id number] #### [place] [address] Hematocrit (Bld) [Volume fraction] 32.0 % Low 34.0-49.0 [facility] Comment on above: Performed By: #### P [id number] #### [place] [address] Hemoglobin (Bld) [Mass/Vol] 10.6 g/dL Low 11.2-15.7 [facility] Comment on above: Performed By: #### P [id number] #### [place] [address] MCH (RBC) [Entitic mass] 31.1 pg Normal 26.0-34.0 [facility] Comment on above: Performed By: #### P [id number] #### [place] [address] MCHC (RBC) [Mass/Vol] 33.1 g/dL Normal 30.7-35.5 [facility] Comment on above: Performed By: #### P [id number] #### [place] [address] MCV (RBC) [Entitic vol] 93.8 fL Normal 80.0-100.0 [facility] Comment on above: Performed By: #### P [id number] #### [place] [address] MEAN PLATELET VOLUME (FL) BY AUTOMATED COUNT 10.8 fL Normal 7.2-11.7 [facility] Comment on above: Performed By: #### P [id number] #### [place] [address] PLATELETS (10*3/UL) BY AUTOMATED COUNT 191 K/uL Normal 140-400 [facility] Comment on above: Performed By: #### P [id number] #### [place] [address] RBC (Bld) [#/Vol] 3.41 10*6/uL Low 3.95-5.26 [facility] Comment on above: Performed By: #### P [id number] #### [place] [address] TO SCAN RESULT USE "SCAN" ICON Normal [facility] Comment on above: Performed By: #### P [id number] #### [place] [address] WBC (Bld) [#/Vol] 5.8 10*3/uL Normal 3.5-10.9 [facility] Comment on above: Performed By: #### P [id number] #### [place] [address] NURSING NOTEon 11-12-2023 Manager Personnel Selection Authentication Interface Message Text Discussed discharge paperwork and when to take medications. Teach back and all questions answered. IV removed. Normal [facility] POC GLUCOSEon 11-12-2023 Glucose [Mass/Vol] 252 mg/dL High 70 - 99 mg/dL [facility] Comment on above: Use of this test in certain clinical conditions requiring intensive medical intervention/therapy may warrant additional consideration by provider. Test was performed by caregiver. Interpretation and review of laboratory results Abnormal [facility] Scan Result [facility] Glucose [Mass/Vol] 252 mg/dL High 70-99 [facility] Comment on above: Result Comment: Use of this test in certain clinical conditions requiring intensive medical intervention/therapy may warrant additional consideration by provider. Test was performed by caregiver. Performed By: #### P [id number] #### [place] [address] TO SCAN RESULT USE "SCAN" ICON Normal [facility] Comment on above: Performed By: #### P [id number] #### [place] [address] Glucose [Mass/Vol] 154 mg/dL High 70 - 99 mg/dL [facility] Comment on above: Use of this test in certain clinical conditions requiring intensive medical intervention/therapy may warrant additional consideration by provider. Test was performed by caregiver. Interpretation and review of laboratory results Abnormal [facility] Scan Result [facility] Glucose [Mass/Vol] 154 mg/dL High 70-99 [facility] Comment on above: Result Comment: Use of this test in certain clinical conditions requiring intensive medical intervention/therapy may warrant additional consideration by provider. Test was performed by caregiver. Performed By: #### P [id number] #### [place] [address] TO SCAN RESULT USE "SCAN" ON Normal [facility] Comment on above: Performed By: #### P [id number] #### [place] [address] Glucose [Mass/Vol] 356 mg/dL High 70 - 99 mg/dL [facility] Comment on above: Use of this test in certain clinical conditions requiring intensive medical intervention/therapy may warrant additional consideration by provider. Test was performed by caregiver. Interpretation and review of laboratory results Abnormal [facility] Scan Result [facility] Glucose [Mass/Vol] 356 mg/dL High 70-99 [facility] Comment on above: Result Comment: Use of this test in certain clinical conditions requiring intensive medical intervention/therapy may warrant additional consideration by provider. Test was performed by caregiver. Performed By: #### P [id number] #### [place] [address] TO SCAN RESULT USE "SCAN" [facility] Comment on above: Performed By: #### P [id number] #### [place] [address] Glucose [Mass/Vol] 422 mg/dL High 70 - 99 mg/dL [facility] Comment on above: Use of this test in certain clinical conditions requiring intensive medical intervention/therapy may warrant additional consideration by provider. Test was performed by caregiver. Interpretation and review of laboratory results Abnormal [facility] Scan Result [facility] Glucose [Mass/Vol] 422 mg/dL High 70-99 [facility] Comment on above: Result Comment: Use of this test in certain clinical conditions requiring intensive medical intervention/therapy may warrant additional consideration by provider. Test was performed by caregiver. Performed By: #### P [id number] #### [place] [address] TO SCAN RESULT USE "SCAN" ICON Normal [facility] Comment on above: Performed By: #### P [id number] #### [place] [address] RENAL FUNCTION PANELon 11-11 Albumin [Mass/Vol] 3.7 g/dL 3.5 - 5.2 g/dL [facility] Anion gap [Moles/Vol] 12 mmol/L 5 - 15 [facility] Calcium [Mass/Vol] 8.8 mg/dL 8.5 - 10. 5 mg/dL [facility] Chloride [Moles/Vol] 106 mmol/L [facility] CO2 [Moles/Vol] 23 mmol/L [facility] Creatinine [Mass/Vol] 1.0 mg/dL 0.5 - 1.2 mg/dL [facility] GFR/1.73 sq M.predicted MDRD (S/P/Bld) [Vol rate/Area] 56 mL/min/{1.73_m2} Low - PINF [facility] Glucose [Mass/Vol] 148 mg/dL High 70 - 99 mg/dL [facility] Interpretation and review of laboratory results Abnormal [facility] Phosphate [Mass/Vol] 3.5 mg/dL 2.1 - 4 .3 mg/dL [facility] Potassium [Moles/Vol] 4.0 mmol/L [facility] Sodium [Moles/Vol] 141 mmol/L [facility] Urea nitrogen [Mass/Vol] 32 mg/dL High 3 - 29 mg/dL [facility] Urea nitrogen/Creatinine [Mass ratio] 32 mg/mg High 7 - 25 [facility] Albumin [Mass/Vol] 3.7 g/dL Normal 3.5-5.2 [facility] Comment on above: Performed By: #### L [id number] ####[place] [phone] Anion gap [Moles/Vol] 12 mmol/L Normal 5-15 [facility] Comment on above: Performed By: #### L [id number] ####[place] [phone] Calcium [Mass/Vol] 8.8 mg/dL Normal 8.5-10.5 [facility] Comment on above: Performed By: #### L [id number] ####[place] [phone] Chloride [Moles/Vol] 106 mmol/L Normal 96-110 [facility] Comment on above: Performed By: #### L [id number] ####[place] [phone] CO2 [Moles/Vol] 23 mmol/L Normal 19-32 [facility] Comment on above: Performed By: #### L [id number] ####[place] [phone] Creatinine [Mass/Vol] 1.0 mg/dL Normal 0.5-1.2 [facility] Comment on above: Performed By: #### L [id number] ####[place] [phone] ESTIMATED GFR 56 mL/min/1.73m*2 Low >=60 [facility] Comment on above: Performed By: #### L [id number] ####[place] [phone] Glucose [Mass/Vol] 148 mg/dL High 70-99 [facility] Comment on above: Performed By: #### L [id number] ####[place] [phone] Phosphate [Mass/Vol] 3.5 mg/dL Normal 2.1-4.3 [facility] Comment on above: Performed By: #### L [id number] ####[place] [phone] Potassium [Moles/Vol] 4.0 mmol/L Normal 3.4-5.3 [facility] Comment on above: Performed By: #### L [id number] ####[place] [phone] Sodium [Moles/Vol] 141 mmol/L Normal 135-148 [facility] Comment on above: Performed By: #### L [id number] ####[place] [phone] Urea nitrogen [Mass/Vol] 32 mg/dL High 3-29 [facility] Comment on above: Performed By: #### L [id number] ####[place] [phone] Urea nitrogen/Creatinine [Mass ratio] 32 mg/mg High 7-25 [facility] Comment on above: Performed By: #### L [id number] ####[place] [phone] CARE PLANon 11-11-2023 Manager Personnel Selection Authentication Interface Message Text Problem: Skin Integrity [...] level within specified parameters Outcome: Progressing Normal [facility] COMPLETE BLOOD COUNT WITH DI FFERENTIALon 11-11-2023 Basophils (Bld) [#/Vol] 0.0 10*3/uL 0.0 - 0.3 K/uL [facility] Basophils/100 WBC (Bld) 0.5 % 0.0 - 2.0 % [facility] Eosinophils (Bld) [#/Vol] 0.4 10*3/uL 0.0 - 0.5 K/uL [facility] Eosinophils/100 WBC (Bld) 5.0 % 0.0 - 5.0 % [facility] Erythrocyte distribution width (RBC) [Ratio] 13.9 % NINF - 15.0 % [facility] Hematocrit (Bld) [Volume fraction] 29.5 % Low 34.0 - 49.0 % [facility] Hemoglobin (Bld) [Mass/Vol] 9.7 g/dL Low 11.2 - 15.7 g/dL [facility] Immature granulocytes (Bld) [#/Vol] 0.0 10*3/uL 0.0 - 0.1 K/uL [facility] Immature granulocytes/100 WBC (Bld) 0.5 % NINF - 1.0 % [facility] Interpretation and review of laboratory results Abnormal [facility] Lymphocytes (Bld) [#/Vol] 1.9 10*3/uL 0.9 - 4.1 K/uL [facility] Lymphocytes/100 WBC (Bld) 22.2 % 14.0 - 51.0 % [facility] MCH (RBC) [Entitic mass] 30.9 pg 26.0 - 34.0 pg [facility] MCHC (RBC) [Mass/Vol] 32.9 g/dL 30.7 - 35.5 g/dL [facility] MCV (RBC) [Entitic vol] 93.9 fL 80.0 - 100.0 fL [facility] Monocytes (Bld) [#/Vol] 1.1 10*3/uL High 0.2 - 1.0 K/uL [facility] Monocytes/100 WBC (Bld) 12.8 % High 4.0 - 12.0 % [facility] Neutrophils (Bld) [#/Vol] 5.2 10*3/uL 1.8 - 7.5 K/uL [facility] Neutrophils/100 WBC (Bld) 59.0 % 42.0 - 80.0 % [facility] Nucleated cells (Bld) [#/Vol] 0 NINF [facility] Platelet mean volume (Bld) [Entitic vol] 11.3 fL 7.2 - 11.7 fL [facility] Platelets (Bld) [#/Vol] 197 10*3/uL 140 - 400 K/uL [facility] RBC (Bld) [#/Vol] 3.14 10*6/uL Low [facility] Scan Result [facility] WBC corrected for nucl RBC Auto (Bld) [#/Vol] 8.8 K/uL 3.5 - 10.9 K/uL [facility] BASOPHILS ABSOLUTE COUNT (10*3/UL) BY AUTOMATED COUNT 0.0 K/uL Normal 0.0-0.3 [facility] Comment on above: Performed By: #### P [id number] #### [place] [address] BASOPHILS RELATIVE PERCENT BY AUTOMATED COUNT 0.5 % Normal 0.0-2.0 [facility] Comment on above: Performed By: #### P [id number] #### [place] [address] Eosinophils (Bld) [#/Vol] 0.4 10*3/uL Normal 0.0-0.5 [facility] Comment on above: Performed By: #### P [id number] #### [place] [address] EOSINOPHILS RELATIVE PERCENT BY AUTOMATED COUNT 5.0 % Normal 0.0-5.0 [facility] Comment on above: Performed By: #### P [id number] #### [place] [address] Erythrocyte distribution width (RBC) [Ratio] 13.9 % Normal <=15.0 [facility] Comment on above: Performed By: #### P [id number] #### [place] [address] Hematocrit (Bld) [Volume fraction] 29.5 % Low 34.0-49.0 [facility] Comment on above: Performed By: #### P [id number] #### [place] [address] Hemoglobin (Bld) [Mass/Vol] 9.7 g/dL Low 11.2-15.7 [facility] Comment on above: Performed By: #### P [id number] #### [place] [address] Immature granulocytes (Bld) [#/Vol] 0.0 10*3/uL Normal 0.0-0.1 [facility] Comment on above: Performed By: #### P [id number] #### [place] [address] Immature granulocytes/100 WBC (Bld) 0.5 % Normal <1.0 [facility] Comment on above: Performed By: #### P [id number] #### [place] [address] LYMPHOCYTES ABSOLUTE COUNT (10*3/UL) BY AUTOMATED COUNT 1.9 K/uL Normal 0.9-4.1 [facility] Comment on above: Performed By: #### P [id number] #### [place] [address] LYMPHOCYTES RELATIVE PERCENT BY AUTOMATED COUNT 22.2 % Normal 14.0-51.0 [facility] Comment on above: Performed By: #### P [id number] #### [place] [address] MCH (RBC) [Entitic mass] 30.9 pg Normal 26.0-34.0 [facility] Comment on above: Performed By: #### P [id number] #### [place] [address] MCHC (RBC) [Mass/Vol] 32.9 g/dL Normal 30.7-35.5 [facility] Comment on above: Performed By: #### P [id number] #### [place] [address] MCV (RBC) [Entitic vol] 93.9 fL Normal 80.0-100.0 [facility] Comment on above: Performed By: #### P [id number] #### [place] [address] MEAN PLATELET VOLUME (FL) BY AUTOMATED COUNT 11.3 fL Normal 7.2-11.7 [facility] Comment on above: Performed By: #### P [id number] #### [place] [address] MONOCYTES ABSOLUTE COUNT (10*3/UL) BY AUTOMATED COUNT 1.1 K/uL High 0.2-1.0 [facility] Comment on above: Performed By: #### P [id number] #### [place] [address] MONOCYTES RELATIVE PERCENT BY AUTOMATED COUNT 12.8 % High 4.0-12.0 [facility] Comment on above: Performed By: #### P [id number] #### [place] [address] NEUTROPHILS ABSOLUTE COUNT (10*3/UL) BY AUTOMATED COUNT 5.2 K/uL Normal 1.8-7.5 [facility] Comment on above: Performed By: #### P [id number] #### [place] [address] NEUTROPHILS RELATIVE PERCENT BY AUTOMATED COUNT 59.0 % Normal 42.0-80.0 [facility] Comment on above: Performed By: #### P [id number] #### [place] [address] NRBC (PER 100 WBCS) BY AUTOMATED COUNT 0 /100 WBCs Normal <=0 [facility] Comment on above: Performed By: #### P [id number] #### [place] [address] PLATELETS (10*3/UL) BY AUTOMATED COUNT 197 K/uL Normal 140-400 [facility] Comment on above: Performed By: #### P [id number] #### [place] [address] RBC (Bld) [#/Vol] 3.14 10*6/uL Low 3.95-5.26 [facility] Comment on above: Performed By: #### P [id number] #### [place] [address] TO SCAN RESULT USE "SCAN" ICON Normal [facility] Comment on above: Performed By: #### P [id number] #### [place] [address] WBC (Bld) [#/Vol] 8.8 10*3/uL Normal 3.5-10.9 [facility] Comment on above: Performed By: #### P [id number] #### [place] [address] COMPREHENSIVE METABOLIC PANE LOrdered By: Ede Curtis on 11-11-2023 Albumin [Mass/Vol] 3.4 g/dL Low 3.5 - 5.2 g/dL [facility] ALP [Catalytic activity/Vol] 55 U/L 23 - 144 U/L [facility] ALT [Catalytic activity/Vol] 16 U/L 0 - 60 U/L [facility] Amino beta guanidinopropionate Ql (P) 1.2 0.8 - 2.6 [facility] Anion gap [Moles/Vol] 9 mmol/L 5 - 15 Pre [facility] AST [Catalytic activity/Vol] 13 U/L 0 - 55 U/L [facility] Bilirubin [Mass/Vol] 0.3 mg/dL 0.0 - 1 .2 mg/dL [facility] Calcium [Mass/Vol] 8.9 mg/dL 8.5 - 10. 5 mg/dL [facility] Chloride [Moles/Vol] 106 mmol/L [facility] CO2 [Moles/Vol] 23 mmol/L [facility] Creatinine [Mass/Vol] 1.1 mg/dL 0.5 - 1.2 mg/dL [facility] GFR/1.73 sq M.predicted MDRD (S/P/Bld) [Vol rate/Area] 50 mL/min/{1.73_m2} Low - PINF [facility] Globulin (S) [Mass/Vol] 2.9 g/dL 1.9 - 3.6 g/dL [facility] Glucose [Mass/Vol] 202 mg/dL High 70 - 99 mg/dL [facility] Interpretation and review of laboratory results Abnormal [facility] Potassium [Moles/Vol] 4.4 mmol/L [facility] Protein [Mass/Vol] 6.3 g/dL 6.0 - 8.3 g/dL [facility] Sodium [Moles/Vol] 138 mmol/L [facility] Urea nitrogen [Mass/Vol] 37 mg/dL High 3 - 29 mg/dL [facility] Urea nitrogen/Creatinine [Mass ratio] 34 mg/mg High 7 - 25 [facility] COMPREHENSIVE METABOLIC PANE David 11-11-2023 Albumin [Mass/Vol] 3.4 g/dL Low 3.5-5.2 [facility] Comment on above: Performed By: #### L [id number] #### [place] [address] Albumin/Globulin [Mass ratio] 1.2 {ratio} Normal 0.8-2.6 [facility] Comment on above: Performed By: #### L [id number] #### [place] [address] ALP [Catalytic activity/Vol] 55 U/L Normal 23-144 [facility] Comment on above: Performed By: #### L [id number] #### [place] [address] ALT [Catalytic activity/Vol] 16 U/L Normal 0-60 [facility] Comment on above: Performed By: #### L [id number] #### [place] [address] Anion gap [Moles/Vol] 9 mmol/L Normal 5-15 [facility] Comment on above: Performed By: #### L [id number] #### [place] [address] AST [Catalytic activity/Vol] 13 U/L Normal 0-55 [facility] Comment on above: Performed By: #### L [id number] #### [place] [address] Bilirubin [Mass/Vol] 0.3 mg/dL Normal 0.0-1.2 [facility] Comment on above: Performed By: #### L [id number] #### [place] [address] Calcium [Mass/Vol] 8.9 mg/dL Normal 8.5-10.5 [facility] Comment on above: Performed By: #### L [id number] #### [place] [address] Chloride [Moles/Vol] 106 mmol/L Normal 96-110 [facility] Comment on above: Performed By: #### L [id number] #### [place] [address] CO2 [Moles/Vol] 23 mmol/L Normal 19-32 [facility] Comment on above: Performed By: #### L [id number] #### [place] [address] Creatinine [Mass/Vol] 1.1 mg/dL Normal 0.5-1.2 [facility] Comment on above: Performed By: #### L [id number] #### [place] [address] ESTIMATED GFR 50 mL/min/1.73m*2 Low >=60 [facility] Comment on above: Performed By: #### L [id number] #### [place] [phone] Globulin (S) [Mass/Vol] 2.9 g/dL Normal 1.9-3.6 [facility] Comment on above: Performed By: #### L [id number] #### [place] [address] Glucose [Mass/Vol] 202 mg/dL High 70-99 [facility] Comment on above: Performed By: #### L [id number] #### [place] [address] Potassium [Moles/Vol] 4.4 mmol/L Normal 3.4-5.3 [facility] Comment on above: Performed By: #### L [id number] #### [place] [address] Protein [Mass/Vol] 6.3 g/dL Normal 6.0-8.3 [facility] Comment on above: Performed By: #### L [id number] #### [place] [address] Sodium [Moles/Vol] 138 mmol/L Normal 135-148 [facility] Comment on above: Performed By: #### L [id number] #### [place] [address] Urea nitrogen [Mass/Vol] 37 mg/dL High 3-29 [facility] Comment on above: Performed By: #### L AB120 #### [place] [address] Urea nitrogen/Creatinine [Mass ratio] 34 mg/mg High 7-25 [facility] Comment on above: Performed By: #### L AB120 #### [place] [address] MAGNESIUM, SERUMon Magnesium [Mass/Vol] 1.9 mg/dL 1.4 - 2 .5 mg/dL [facility] Magnesium [Mass/Vol] 1.9 mg/dL Normal 1.4-2.5 [facility] Comment on above: Performed By: #### L [id number] ####[place] [phone] No Panel Informationon 11-10 Interpretation and review of laboratory results Normal [facility] PHOSPHORUSon 11-11-2023 Phosphate [Mass/Vol] 3.1 mg/dL 2.1 - 4 .3 mg/dL [facility] Phosphate [Mass/Vol] 3.1 mg/dL Normal 2.1-4.3 [facility] Comment on above: Performed By: #### P [id number] #### [place] [address] POC GLUCOSEon 11-11-2023 Glucose [Mass/Vol] 282 mg/dL High 70 - 99 mg/dL [facility] Comment on above: Use of this test in certain clinical conditions requiring intensive medical intervention/therapy may warrant additional consideration by provider. Test was performed by caregiver. Interpretation and review of laboratory results Abnormal [facility] Glucose [Mass/Vol] 282 mg/dL High 70-99 [facility] Comment on above: Result Comment: Use of this test in certain clinical conditions requiring intensive medical intervention/therapy may warrant additional consideration by provider. Test was performed by caregiver. Performed By: #### P [id number] #### [place] [address] TO SCAN RESULT USE "SCAN" ICON Normal [facility] Comment on above: Performed By: #### P [id number] #### [place] [address] Glucose [Mass/Vol] 253 mg/dL High 70 - 99 mg/dL [facility] Comment on above: Use of this test in certain clinical conditions requiring intensive medical intervention/therapy may warrant additional consideration by provider. Test was performed by caregiver. Interpretation and review of laboratory results Abnormal [facility] Glucose [Mass/Vol] 253 mg/dL High 70-99 [facility] Comment on above: Result Comment: Use of this test in certain clinical conditions requiring intensive medical intervention/therapy may warrant additional consideration by provider. Test was performed by caregiver. Performed By: #### P [id number] #### [place] [address] TO SCAN RESULT USE "SCAN" ICON Normal [facility] Comment on above: Performed By: #### P [id number] #### [place] [address] Glucose [Mass/Vol] 298 mg/dL High 70 - 99 mg/dL [facility] Comment on above: Use of this test in certain clinical conditions requiring intensive medical intervention/therapy may warrant additional consideration by provider. Test was performed by caregiver. Interpretation and review of laboratory results Abnormal [facility] Result [facility] Glucose [Mass/Vol] 298 mg/dL High 70-99 [facility] Comment on above: Result Comment: Use of this test in certain clinical conditions requiring intensive medical intervention/therapy may warrant additional consideration by provider. Test was performed by caregiver. Performed By: #### P [id number] #### [place] [address] TO SCAN RESULT USE "SCAN" ICON Normal [facility] Comment on above: Performed By: #### P [id number] #### [place] [address] Glucose [Mass/Vol] 227 mg/dL High 70 - 99 mg/dL [facility] Comment on above: Testing not FDA appr leopoldo for use with patients in DKA or receiving intensive medical intervention/therapy. Test was performed by caregiver. Interpretation and review of laboratory results Abnormal [facility] Glucose [Mass/Vol] 227 mg/dL High 70-99 [facility] Comment on above: Result Comment: Test ing not FDA approved for use with patients in DKA or receiving intensive medical intervention/therapy. Test was performed by caregiver. Performed By: #### P [id number] #### [place] [address] TO SCAN RESULT USE "SCAN" [facility] Normal [facility] Comment on above: Performed By: #### P [id number] #### [place] [address] Glucose [Mass/Vol] 226 mg/dL High 70 - 99 mg/dL [facility] Comment on above: Testing not FDA appr leopoldo for use with patients in DKA or receiving intensive medical intervention/therapy. Test was performed by caregiver. Interpretation and review of laboratory results Abnormal [facility] Result [facility] Glucose [Mass/Vol] 226 mg/dL High 70-99 [facility] Comment on above: Result Comment: Test ing not FDA approved for use with patients in DKA or receiving intensive medical intervention/therapy. Test was performed by caregiver. Performed By: #### P [id number] #### [place] [address] TO SCAN RESULT USE "SCAN" [facility] Comment on above: Performed By: #### P [id number] #### [place] [address] PROGRESS NOTESon 11-11-2023 Manager Personnel Selection Authentication Interface Message Text Met with patient to discuss home health care. Patient declining home health, despite HCL explaining benefits of services and encouragement. Patient?s reason for declining: Stated is very independent. Patient instructed that if they change their mind to please let their case managers, physician, or bedside nurse know and they can contact us to revisit them. Physician notified: N/A Notified via: N/A Discussion with MD: N/A Electronically signed by: Gayle Oswald 11/11/2023 11:20 AM [facility] Manager Personnel Selection Authentication Interface Message Text Patient to be assessed by Rn Immunology for potential home care needs. Liaison will then meet with patient/caregiver to discuss home care services. Liaison will confirm if patient/caregiver is agreeable to home care services and verify agency preference. Once the home care agency has accepted the referral, the agency will be added to patient's follow-up provider list. Electronically signed by: Gayle Oswald, 11/11/2023 8:15 AM [facility] ACTIVATED PARTIAL THROMBOPLA STIN TIMEon 11-10-2023 aPTT Coag (PPP) [Time] 22.8 s Low Pr [facility] Interpretation and review of laboratory results Abnormal [facility] aPTT Coag (Bld) [Time] 22.8 s Low 24.5-35.2 [facility] Comment on above: Performed By: #### P [id number] #### [place] [address] BASIC METABOLIC PANELon - Anion gap [Moles/Vol] 15 mmol/L 5 - 15 [facility] Calcium [Mass/Vol] 9.4 mg/dL 8.5 - 10. 5 mg/dL [facility] Chloride [Moles/Vol] 94 mmol/L Low [facility] CO2 [Moles/Vol] 24 mmol/L [facility] Creatinine [Mass/Vol] 1.5 mg/dL High 0.5 - 1.2 mg/dL [facility] GFR/1.73 sq M.predicted MDRD (S/P/Bld) [Vol rate/Area] 34 mL/min/{1.73_m2} Low - PINF [facility] Glucose [Mass/Vol] 430 mg/dL High 70 - 99 mg/dL [facility] Interpretation and review of laboratory results Abnormal [facility] Potassium [Moles/Vol] 4.5 mmol/L [facility] Sodium [Moles/Vol] 133 mmol/L Low [facility] Urea nitrogen [Mass/Vol] 34 mg/dL High 3 - 29 mg/dL [facility] Urea nitrogen/Creatinine [Mass ratio] 23 mg/mg 7 - 25 [facility] Anion gap [Moles/Vol] 15 mmol/L Normal 5-15 [facility] Comment on above: Performed By: #### L [id number] #### [place] [address] Calcium [Mass/Vol] 9.4 mg/dL Normal 8.5-10.5 [facility] Comment on above: Performed By: #### L [id number] #### [place] [address] Chloride [Moles/Vol] 94 mmol/L Low 96-110 [facility] Comment on above: Performed By: #### L [id number] #### [place] [address] CO2 [Moles/Vol] 24 mmol/L Normal 19-32 [facility] Comment on above: Performed By: #### L [id number] #### [place] [address] Creatinine [Mass/Vol] 1.5 mg/dL High 0.5-1.2 [facility] Comment on above: Performed By: #### L [id number] #### [place] [address] ESTIMATED GFR 34 mL/min/1.73m*2 Low >=60 [facility] Comment on above: Performed By: #### L [id number] #### [place] [address] Glucose [Mass/Vol] 430 mg/dL High 70-99 [facility] Comment on above: Performed By: #### L [id number] #### [place] [address] Potassium [Moles/Vol] 4.5 mmol/L Normal 3.4-5.3 [facility] Comment on above: Performed By: #### L [id number] #### [place] [address] Sodium [Moles/Vol] 133 mmol/L Low 135-148 [facility] Comment on above: Performed By: #### L [id number] #### [place] [address] Urea nitrogen [Mass/Vol] 34 mg/dL High 3-29 [facility] Comment on above: Performed By: #### L [id number] #### [place] [address] Urea nitrogen/Creatinine [Mass ratio] 23 mg/mg Normal 7-25 [facility] Comment on above: Performed By: #### L [id number] #### [place] [address] CARE PLANon 11-10-2023 Manager Personnel Selection Authentication Interface Message Text Problem: Skin Integrity [...] level within specified parameters Outcome: Progressing Normal [facility] COMPLETE BLOOD COUNT WITH DI FFERENTIALon 11-10-2023 Basophils (Bld) [#/Vol] 0.0 10*3/uL 0.0 - 0.3 K/uL [facility] Basophils/100 WBC (Bld) 0.3 % 0.0 - 2.0 % [facility] Eosinophils (Bld) [#/Vol] 0.0 10*3/uL 0.0 - 0.5 K/uL [facility] Eosinophils/100 WBC (Bld) 0.4 % 0.0 - 5.0 % [facility] Erythrocyte distribution width (RBC) [Ratio] 13.7 % NINF - 15.0 % [facility] Hematocrit (Bld) [Volume fraction] 34.6 % 34.0 - 49.0 % [facility] Hemoglobin (Bld) [Mass/Vol] 11.7 g/dL 11.2 - 15.7 g/dL [facility] Immature [...] [#/Vol] 204 10*3/uL 140 - 400 K/uL [facility] RBC (Bld) [#/Vol] 3.71 10*6/uL Low [facility] Scan Result [facility] WBC corrected for nucl RBC Auto (Bld) [#/Vol] 9.9 K/uL 3.5 - 10.9 K/uL [facility] BASOPHILS ABSOLUTE COUNT (10*3/UL) BY AUTOMATED COUNT 0.0 K/uL Normal 0.0-0.3 [facility] Comment on above: Performed By: #### L [id number] #### [place] [address] BASOPHILS RELATIVE PERCENT BY AUTOMATED COUNT 0.3 % Normal 0.0-2.0 [facility] Comment on above: Performed By: #### L [id number] #### [address] Eosinophils (Bld) [#/Vol] 0.0 10*3/uL Normal 0.0-0.5 [facility] Comment on above: Performed By: #### L [id number] #### [address] EOSINOPHILS RELATIVE PERCENT BY AUTOMATED COUNT 0.4 % Normal 0.0-5.0 [facility] Comment on above: Performed By: #### L [id number] #### [place] [id number] Erythrocyte distribution width (RBC) [Ratio] 13.7 % Normal <=15.0 [facility] Comment on above: Performed By: #### L [id number] #### [place] [id number] Hematocrit (Bld) [Volume fraction] 34.6 % Normal 34.0-49.0 [facility] Comment on above: Performed By: #### L [id number] #### [place] [id number] Hemoglobin (Bld) [Mass/Vol] 11.7 g/dL Normal 11.2-15.7 [facility] Comment on above: Performed By: #### L [id number] #### [place] [address] Immature granulocytes (Bld) [#/Vol] 0.0 10*3/uL Normal 0.0-0.1 [facility] Comment on above: Performed By: #### L [id number] #### [place] [address] Immature granulocytes/100 WBC (Bld) 0.4 % Normal <1.0 [facility] Comment on above: Performed By: #### L [id number] #### [place] [address] LYMPHOCYTES ABSOLUTE COUNT (10*3/UL) BY AUTOMATED COUNT 1.1 K/uL Normal 0.9-4.1 [facility] Comment on above: Performed By: #### L [id number] #### [place] [address] LYMPHOCYTES RELATIVE PERCENT BY AUTOMATED COUNT 11.3 % Low 14.0-51.0 [facility] Comment on above: Performed By: #### L [id number] #### [place] [address] MCH (RBC) [Entitic mass] 31.5 pg Normal 26.0-34.0 [facility] Comment on above: Performed By: #### L [id number] #### [place] [address] MCHC (RBC) [Mass/Vol] 33.8 g/dL Normal 30.7-35.5 [facility] Comment on above: Performed By: #### L [id number] #### [place] [address] MCV (RBC) [Entitic vol] 93.3 fL Normal 80.0-100.0 [facility] Comment on above: Performed By: #### L [id number] #### [place] [address] MEAN PLATELET VOLUME (FL) BY AUTOMATED COUNT 10.7 fL Normal 7.2-11.7 [facility] Comment on above: Performed By: #### L [id number] #### [place] [address] MONOCYTES ABSOLUTE COUNT (10*3/UL) BY AUTOMATED COUNT 0.9 K/uL Normal 0.2-1.0 [facility] Comment on above: Performed By: #### L [id number] #### [place] [address] MONOCYTES RELATIVE PERCENT BY AUTOMATED COUNT 8.7 % Normal 4.0-12.0 [facility] Comment on above: Performed By: #### L [id number] #### [place] [address] NEUTROPHILS ABSOLUTE COUNT (10*3/UL) BY AUTOMATED COUNT 7.8 K/uL High 1.8-7.5 [facility] Comment on above: Performed By: #### L [id number] #### [place] [address] NEUTROPHILS RELATIVE PERCENT BY AUTOMATED COUNT 78.9 % Normal 42.0-80.0 [facility] Comment on above: Performed By: #### L [id number] #### [place] [address] NRBC (PER 100 WBCS) BY AUTOMATED COUNT 0 /100 WBCs Normal <=0 [facility] Comment on above: Performed By: #### L [id number] #### [place] [address] PLATELETS (10*3/UL) BY AUTOMATED COUNT 204 K/uL Normal 140-400 [facility] Comment on above: Performed By: #### L [id number] #### [place] [address] RBC (Bld) [#/Vol] 3.71 10*6/uL Low 3.95-5.26 [facility] Comment on above: Performed By: #### L [id number] #### [place] [address] TO SCAN RESULT USE "SCAN" ICON Normal [facility] Comment on above: Performed By: #### L [id number] #### [place] [address] WBC (Bld) [#/Vol] 9.9 10*3/uL Normal 3.5-10.9 [facility] Comment on above: Performed By: #### L [id number] #### [place] [address] CULTURE, BLOODon 11-10-2023 Microscopic examination of blood, culture SDES: BLOOD CULTURE, BLOOD SREQ: VENOUS CULTURE COMPONENT 3419 CULTURE, BLOOD NOTE NO GROWTH 5 DAYS Normal [facility] Comment on above: Performed By: #### P [id number] #### [place] [address] Microscopic examination of blood, culture SDES: BLOOD CULTURE, BLOOD SREQ: VENOUS CULTURE COMPONENT 3419 CULTURE, BLOOD NOTE NO GROWTH 5 DAYS Normal [facility] Comment on above: Performed By: #### L [id number] ####[place] [phone] ED NOTESon 11-10-2023 [facility] Ed Note ED Note: Last filed note HNO ID: [id number] Author: Pinky Martinez RN Service: Emergency Medicine Author Type: Registered Nurse Filed: 11/10/23 4779 Note Text: Patient provided damp wash cloth per request, denies any other needs at this time. Call light within reach. Normal [facility] Ed Note ED Note: Last filed note HNO ID: [id number] Author: Martinez, Pinky J, RN Service: Emergency Medicine Author Type: Registered Nurse Filed: 11/10/23 2489 Note Text: ED REPORT SUMMARY ED ARRIVAL COMPLAINT(S) Cellulitis ADMISSION DIAGNOSIS No admission diagnoses are documented for this encounter. ED Location: [facility]16/[facility]16 Private Visit: No Language: Indonesian Admitting: Patient Class: Level of Care: Service: [...] Normal URINE () INTEGUMENTARY Skin: Warm, Dry, [place] Color, cont: Cap refill < 2 sec [...] COMMENTS: Data Validated/Updated: 11/10/2023 at 6:20 PM [facility] Ed Note ED Note: Last filed note HNO ID: [id number] Author: Pinky Martinez RN Service: Emergency Medicine Author Type: Registered Nurse Filed: 11/10/23 9620 Note Text: Patient provided cup of water, approved by Dr. Rubio. [facility] Ed Note ED Note: Last filed note HNO ID: [id number] Author: Pinky Martinez RN Service: Emergency Medicine Author Type: Registered Nurse Filed: 11/10/23 2360 Note Text: IV placement attempted, unsuccessful at this time. TL made aware. [facility] ED PROVIDER NOTESon 11-10-19 [facility] Ed Provider Note ED Provider Note: L ast filed note HNO ID: [id number] Author: Norberto Rubio MD Service: ? Author Type: Physician Filed: 11/10/23 276 Note Text: Triage Chief Complaint: Chief Complaint [...] of Onset Diabetes Father Heart Disease Father [place] Hypertension Father Cancer Father Prostate No Known [...] CAUDAL EPIDURAL BLOCK 09/02/2017 ECHO Historical [facility]- ? Why -Results Good EPIDURAL LUMBAR TRANSFORMINAL Left 03/25/2017 L3-L4 LAMINECTOMY DECOMPRESSION POSTERIOR 3 LEVEL N/A 10/22/2017 LAMINECTOMY DECOMPRESSION POSTERIOR 3 LEVEL performed by Adolfo Edwards MD at [facility] MAIN OR LIG/TRNSXJ FLP TUBE ABDL/VAG APPR UNI/BI Ligation or Transection of Fallopian Tubes, Unilat or Bilat LUMBAR TRANSFORAMINAL EPIDURAL 04/29/2017 L4-L5 Other Surgical History Left 01/24/2015 Left Foot Metatarsal Head Bone Biopsy per Dr Ann Vasquez @ [facility] Other Surgical History Right 10/17/2015 Irigation W/Sharp Excisional Debridement Right Foot. 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 Normal [facility] ED TRIAGEon 11-10-2023 [facility] Ed Triage Note ED Triage Note: Last filed note HNO ID: [id number] Author: Arelis Rodriguez RN Service: Emergency Medicine [...] Pt A and ambulatory in triage. Normal [facility] ERYTHROCYTE SEDIMENTATION RA Maribell 11-10-2023 ESR (Bld) [Velocity] 22 mm/h [facility] Interpretation and review of laboratory results Normal [facility] SEDIMENTATION RATE 22 mm/hr Normal 0-30 [facility] Comment on above: Performed By: #### P [id number] #### [place] [address] H[employer]Price 11-10-2023 Manager Personnel Selection Authentication Interface Message Text [facility] History 11/10/2023 Patient Identifier/Hospitalist Patient [...] CAUDAL EPIDURAL BLOCK 09/02/2017 ECHO Historical [facility]- ? Why -Results Good EPIDURAL LUMBAR TRANSFORMINAL Left 03/25/2017 L3-L4 LAMINECTOMY DECOMPRESSION POSTERIOR 3 LEVEL N/A 10/22/2017 LAMINECTOMY DECOMPRESSION POSTERIOR 3 LEVEL performed by Adolfo Edwards MD at [facility] MAIN OR LIG/TRNSXJ FLP TUBE ABDL/VAG APPR UNI/BI Ligation or Transection of Fallopian Tubes, Unilat or Bilat LUMBAR TRANSFORAMINAL EPIDURAL 04/29/2017 L4-L5 Other Surgical History Left 01/24/2015 Left Foot Metatarsal Head Bone Biopsy per Dr Ann Vasquez @ [facility] Other Surgical History Right 10/17/2015 Irigation W/Sharp Excisional Debridement Right Foot. 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 Normal [facility] HEPATIC FUNCTION PANELOrdere d By: Philly Partida on 11-10-2023 Albumin [Mass/Vol] 4.0 g/dL 3.5 - 5.2 g/dL [facility] ALP [Catalytic activity/Vol] 72 U/L 23 - 144 U/L [facility] ALT [Catalytic activity/Vol] 21 U/L 0 - 60 U/L [facility] AST [Catalytic activity/Vol] 17 U/L 0 - 55 U/L [facility] Bilirubin [Mass/Vol] 0.4 mg/dL 0.0 - 1 .2 mg/dL [facility] Bilirubin.direct [Mass/Vol] 0.2 mg/dL 0.0 - 0.4 mg/dL [facility] Bilirubin.indirect [Mass/Vol] 0.2 mg/dL 0.0 - 1.2 mg/dL [facility] Interpretation and review of laboratory results Normal [facility] Protein [Mass/Vol] 7.5 g/dL 6.0 - 8.3 g/dL [facility] HEPATIC FUNCTION PANELon Albumin [Mass/Vol] 4.0 g/dL Normal 3.5-5.2 [facility] Comment on above: Performed By: #### P [id number] #### [place] [address] ALP [Catalytic activity/Vol] 72 U/L Normal 23-144 [facility] Comment on above: Performed By: #### P [id number] #### [place] [address] ALT [Catalytic activity/Vol] 21 U/L Normal 0-60 [facility] Comment on above: Performed By: #### P [id number] #### [place] [address] AST [Catalytic activity/Vol] 17 U/L Normal 0-55 [facility] Comment on above: Performed By: #### P [id number] #### [place] [address] Bilirubin [Mass/Vol] 0.4 mg/dL Normal 0.0-1.2 [facility] Comment on above: Performed By: #### P [id number] #### [place] [address] BILIRUBIN, INDIRECT 0.2 mg/dL Normal 0.0-1.2 [facility] Comment on above: Performed By: #### P [id number] #### [place] [address] Bilirubin.indirect [Mass/Vol] 0.2 mg/dL Normal 0.0-0.4 [facility] Comment on above: Performed By: #### P [id number] #### [place] [address] Protein [Mass/Vol] 7.5 g/dL Normal 6.0-8.3 [facility] Comment on above: Performed By: #### P [id number] #### [place] [address] MAGNESIUM, SERUMon 4 Interpretation and review of laboratory results Normal [facility] Magnesium [Mass/Vol] 1.8 mg/dL 1.4 - 2 .5 mg/dL [facility] Magnesium [Mass/Vol] 1.8 mg/dL Normal 1.4-2.5 [facility] Comment on above: Performed By: #### L [id number] ####[place] [phone] MRSA DNA XXX Ql ROBERT+probeon 11-10-2023 MRSA DNA ROBERT+probe Ql (Unsp spec) Test Not Performed. No suitable specimen received. Normal NOT DETECTED [facility] Comment on above: Performed By: #### 3 [id number] #### MICHEL Colon ([id number]) , [facility] No Panel Informationon 11-09 [facility] GLUCOSEon 11-10-2023 Glucose [Mass/Vol] 406 mg/dL High 70 - 99 mg/dL [facility] Comment on above: Testing not FDA appr leopoldo for use with patients in DKA or receiving intensive medical intervention/therapy. Test was performed by caregiver. Interpretation and review of laboratory results Abnormal [facility] Scan Result [facility] Glucose [Mass/Vol] 406 mg/dL High 70-99 [facility] Comment on above: Result Comment: Test ing not FDA approved for use with patients in DKA or receiving intensive medical intervention/therapy. Test was performed by caregiver. Performed By: #### P [id number] #### [place] [address] TO SCAN RESULT USE "SCAN" ICON Normal [facility] Comment on above: Performed By: #### P [id number] #### [place] [address] PROTHROMBIN TIMEon INR Coag (PPP) [Relative time] 1.1 {INR} 0.9 - 1.1 [facility] Interpretation and review of laboratory results Normal [facility] PT Coag (PPP) [Time] 13.[address] [facility] Conventional anticoagulation: 2.0 - 3.0 Intensive anticoagulation: 2.5 - 3.5 [facility] COMMENT Conventional anticoagulation: 2.0 - 3.0 Normal [facility] Comment on above: Result Comment: Inte nsive anticoagulation: 2.5 - 3.5 Performed By: #### L [id number] ####[place] [phone] INR Coag (PPP) [Relative time] 1.1 {INR} Normal 0.9-1.1 [facility] Comment on above: Performed By: #### L [id number] ####[place] [phone] PT Coag (PPP) [Time] 13.6 s Normal 11.7-13.9 [facility] Comment on above: Performed By: #### L [id number] ####[place] [phone] SEPSIS LACTATE W/ REFLEXon 0 11-10-2023 Interpretation and review of laboratory results Normal [facility] Lactate [Mass/Vol] 1.6 mmol/L 0.5 - 2.2 mmol/L [facility] If ruling out sepsis : Result >2.0 meets criteria for severe sepsis, recommend repeat testing to rule out sepsis. Result >=4.0 meets criteria for septic shock. [facility] COMMENT If ruling out sepsis: Normal [facility] Comment on above: Result Comment: Resu lt >2.0 meets criteria for severe sepsis, recommend repeat testing to rule out sepsis. Result >=4.0 meets criteria for septic shock. Performed By: #### P [id number] #### [place] [address] Lactate [Moles/Vol] 1.6 mmol/L Normal 0.5-2.2 [facility] Comment on above: Performed By: #### P [id number] #### [place] [address] XR FOOT RIGHT MINIMUM 3 VIEW Son [...] Dictated by Liset Wilson MD, PhD Workstation ID:[id number] He states pt has a history of cellulitis in her R leg. He states she has been less sharp and less steady and didn't want to leave before she was checked out to make sure she is ok Normal [facility] IMPRESSION: Signific ant chronic changes. Soft tissue swelling. No acute fracture or focal discrete new bone erosion identified. Dictated by Liset Wilson MD, PhD Workstation ID:[id number] EFRAIN LYNN Right foot History: CELLULITIS, COMPARISON: 05/06/2023 3 [...] the medial aspect of the medial malleolus. Liset Mckinnon MD - 11/10/2023 Right foot History: CELLULITIS, [...] Dictated by Liset Wilson MD, PhD Workstation ID:[id number] [facility] (narrative) [facility] XR FOOT RIGHT MINIMUM 3 VIEW SOrdered By: Liset Wilson on 11-10-2023 [facility] Work Phone: NURSING NOTEon 10-18-2023 Manager Personnel Selection Authentication Interface Message Text Patient here for right shoulder pain, radiates down arm into hand. Normal Provider Locations PROGRESS NOTESon 10-18-2023 Manager Personnel Selection Authentication Interface Message Text ASSESSMENT ICD-10-CM ICD-9-CM 1. Acute pain of right shoulder M25.511 719.41 XR SHOULDER RIGHT STANDARD VIEW HYDROcodone-acetaminophen (NORCO) 5-325 mg tablet MEDICAL DECISION MAKING 1. Acute pain of right shoulder appears to be subacromial bursitis and tendinitis of right shoulder. X-ray ordered to assess for any fracture or osteoarthritis. Will treat pain with [place]. If x-ray is clear fracture consider subacromial [...] normal. Judgment: Judgment normal. Normal Provider Locations Manager Personnel Selection Authentication Interface Message Text Physical Therapy Visit [facility] [address] [place] [address] PATIENT INFORMATION Patient Name: Hanna Nelson : [...] reviewed HEP Date: 10/11/23 10/18/23 Name: AB AB Visit 1 2 3 4 5 6 7 8 Pain Rating 11/19 / / Progress Report SAQs 2 lbs [...] weeks. The treatment plan includes: Gait training (75358), Manual (21592), Neuromuscular re-education (58146), Patient education, Therapeutic activities (00706), and Therapeutic exercise (43403). Next visit: balance exercises Electronically signed by: Jimmie Funes PT Normal [facility] XR SHOULDER RIGHT STANDARD V W 10-18-2023 XR SHOULDER RIGHT STANDARD VIEW EXAM: [...] Degenerative change. Dictated by: Amaury Ardon M.D.Workstation ID:[id number] RT shoulder pain. No known trauma. Normal [facility] IMPRESSION: No acute abnormality of the right shoulder. Degenerative change. Dictated by: Amaury Ardon M.D.Workstation ID:[id number] [facility] EXAM: XR right shoul jacklyn series 2 views CLINICAL: Shoulder pain COMPARISON: There is no prior study for comparison. TECHNIQUE: 2 views of the right shoulder FINDINGS: There is no acute fracture or dislocation of the right shoulder. Soft tissues are unremarkable. There is mild to moderate glenohumeral and acromioclavicular degeneration. Spondylosis of the spine. EAP Amaury Abad MD - 10/18/2023 EXAM: XR right shoulder [...] Degenerative change. Dictated by: Amaury Ardon M.D.Workstation ID:[id number] [facility] Study observation (narrative) [facility] XR SHOULDER RIGHT STANDARD V IEWOrdered By: Amaury Ardon on 10-18-2023 [facility] Work Phone: CARE PLANon 10-17-2023 Manager Personnel Selection Authentication Interface Message Text Progressing. Normal [facility] MEDICAL STAFFon 10-17-2023 Manager Personnel Selection Authentication Interface Message Text [facility] 10/17/2023 Patient Name: Hanna [...] the appropriate size sent back to her facilities director office Assessment/Dermatologic Exam/Plan Assessment -Right lower extremity [...] for the 10/17/23 encounter (Hospital Encounter) with [facility] 1. Allergies Allergen Reactions [...] - 99 MG/DL Final Comment: (NOTE) The [place] [employer] recommends the following guidelines: MG/DL [...] 3.0-4.0 HEMOGLO (more content not included)... Normal [facility] MEDICAL STAFFon 10-03-2023 Manager Personnel Selection Authentication Interface Message Text [facility] 10/03/2023 Patient Name: Hanna [...] for the 10/03/23 encounter (Hospital Encounter) with [facility] 4. Allergies Allergen Reactions [...] - 99 MG/DL Final Comment: (NOTE) The [place] [employer] recommends the following guidelines: MG/DL [...] Value R (more content not included)... Normal [facility] MEDICAL STAFFon 09-19-2023 Manager Personnel Selection Authentication Interface Message Text [facility] 09/19/2023 Patient Name: Hanna [...] for the 09/19/23 encounter (Hospital Encounter) with [facility] 1. Allergies Allergen Reactions [...] - 99 MG/DL Final Comment: (NOTE) The [place] [employer] recommends the following guidelines: MG/DL [...] THERAPY: 2.0 (more content not included)... Normal [facility] XR KNEE RIGHT STANDARD VIEWo n 09-19-2023 [...] Severe osteoarthritis. Dictated by: Amaury Ardon M.D.Workstation ID:[id number] Chronic pain of right knee Normal [facility] IMPRESSION: Severe osteoarthritis. Dictated by: Amaury Ardon M.D.Workstation ID:[id number] EAP HIE EXAM: XR right knee 2 views. CLINICAL: [...] at least mild or moderate patellofemoral narrowing. EAAmaury Marquez MD - 09/19/2023 EXAM: XR right knee [...] Severe osteoarthritis. Dictated by: Amaury Ardon M.D.Workstation ID:[id number] [facility] Study observation (narrative) [facility] XR KNEE RIGHT STANDARD VIEWO rdered By: Amaury Ardon on 09-19-2023 [facility] Work Phone: NURSING NOTEon 09-16-2023 Manager Personnel Selection Authentication Interface Message Text Patient here for med check, review labs. Right knee pain, balance issues. Interested in doing PT. Uses cane while away from home. Normal Provider Locations PROGRESS NOTESon 09-16-2023 Manager Personnel Selection Authentication Interface Message Text ASSESSMENT ICD-10-CM ICD-9-CM [...] symmetric. Normal Provider Locations CBC WITH DIFFERENTIALon 02-0 1-2024 ABSOLUTE BASOPHIL 0.1 K/uL Normal 0.0-0.3 Provide [...] on above: Result Comment: (NOT E) The [place] [employer] recommends the following guidelines: MG/DL [...] on above: Result Comment: (NOT E) The [place] [employer] recommends the following Guidelines: 5.7-6.4% Indicates increased risk for diabetes (Prediabetes). >6.5% Diagnostic of diabetes. In the absence of unequivocal hyperglycemia, results should be confirmed by repeat test. <7% Glycemic recommendation for non adults with diabetes. [place] [employer], Standards of Medical Care in [...] have modest increases in Triglyceride levels (MAHNAZ [employer], 2019) VLDL CALCULATIONS ARE NOT VALID WHEN TRIGLYCERIDE LEVELS EXCEED 400 MG/DL. Normal 4-38 Provider Locations THYROID STIMULATING HORMONEo n 09-12-2023 TSH 3.870 MCIU/ML Normal 0.400-4.50 0 Provider Locations CARE PLANon 09-05-2023 Manager Personnel Selection Authentication Interface Message Text Progressing. Normal [facility] MEDICAL STAFFon 09-05-2023 Manager Personnel Selection Authentication Interface Message Text [facility] 09/05/2023 Patient Name: Hanna Nelson : [...] for the 09/05/23 encounter (Hospital Encounter) with [facility] 1. Allergies Allergen Reactions [...] - 99 MG/DL Final Comment: (NOTE) The [place] [employer] recommends the following guidelines: MG/DL [...] SECONDS INR (more content not included)... Normal [facility] NURSING NOTEon 09-05-2023 Manager Personnel Selection Authentication Interface Message Text [facility] [address] [place] [address] Physician Orders Patient Name: Hanna Nelson Start Date: 08/27/2023 Order: Halfway for Wound Care Primary Dressing Collagens;Alginate;Antimicr obial 08/22/23 1324 Secondary Dressing Foam Dressing-Silicone Boarder 08/22/23 1324 Change Dressing M-W-F Physician NPI and Signature: Dr. Estiven Mcfadden, VIPUL NPI# [id number] [facility] CARE PLANon 08-22-2023 Manager Personnel Selection Authentication Interface Message Text Progressing. [facility] MEDICAL STAFFon 08-22-2023 Manager Personnel Selection Authentication Interface Message Text [facility] 08/22/2023 Patient Name: Hanna Nelson : 1940 AGE: [age] year old GENDER: Female Chief Complaint/Reason for Visit Hanna Nelson is a 81 year old female who presents today for wound care of chronic wound on the bottom of the right foot. No changes from previous. She has heard back from her facilities director office and they have officially started process [...] callus buildup -She reached out to her facilities director and they have started process for diabetic [...] for the 08/22/23 encounter (Hospital Encounter) with [facility] 1. Allergies Allergen Reactions [...] - 99 MG/DL Final Comment: (NOTE) The [place] [employer] recommends the following guidelines: MG/DL [...] SERUM Date (more content not included)... Normal [facility] NURSING NOTEon 08-22-2023 Manager Personnel Selection Authentication Interface Message Text [facility] [address] [place] [address] Physician Orders Patient Name: Hanna Nelson Start Date: 08/27/2023 Order: Halfway for Wound Care Primary Dressing Collagens;Alginate;Antimicr obial 08/22/23 1324 Secondary Dressing Foam Dressing-Silicone Boarder 08/22/23 1324 Return in 1 week Physician NPI and Signature: Dr. Estiven Mcfadden, VIPUL NPI# [id number] Normal [facility] MEDICAL STAFFon 08-01-2023 Manager Personnel Selection Authentication Interface Message Text [facility] 08/01/2023 Patient Name: Hanna Nelson : 1940 AGE: [age] year old GENDER: Female Chief Complaint/Reason for Visit Hanna Nelson is a 81 year old female who presents today for wound care of chronic wound on the bottom of the right foot. No changes from previous. Still has not heard back from her facilities director about when her modified diabetic shoes will [...] callus buildup -Still waiting to hear from facilities director about new diabetic inserts and shoes and [...] for the 08/01/23 encounter (Hospital Encounter) with [facility] 1. Allergies Allergen Reactions [...] - 99 MG/DL Final Comment: (NOTE) The [place] [employer] recommends the following guidelines: MG/DL [...] Ref Range (more content not included)... Normal [facility] CARE PLANon 07-25-2023 Manager Personnel Selection Authentication Interface Message Text Progressing. Normal [facility] MEDICAL STAFFon 07-25-2023 Manager Personnel Selection Authentication Interface Message Text [facility] 07/25/2023 Patient Name: Hanna Nelson : 1940 AGE: [age] year old GENDER: Female Chief Complaint/Reason for Visit Hanna Nelson is a 81 year old female who presents today for wound care of chronic wound on the bottom of the right foot. No changes from previous. Still has not heard back from her facilities director about when her modified diabetic shoes will [...] callus buildup -Still waiting to hear from facilities director about new diabetic inserts and shoes and [...] for the 07/25/23 encounter (Hospital Encounter) with [facility] 1. Allergies Allergen Reactions [...] - 99 MG/DL Final Comment: (NOTE) The [place] [employer] recommends the following guidelines: MG/DL [...] ALBUMIN, SER (more content not included)... Normal [facility] CARE PLANon 07-11-2023 Manager Personnel Selection Authentication Interface Message Text Progressing. Normal [facility] MEDICAL STAFFon 07-11-2023 Manager Personnel Selection Authentication Interface Message Text [facility] 07/11/2023 Patient Name: Hanna Nelson : 1940 AGE: [age] year old GENDER: Female Chief Complaint/Reason for Visit Hanna Nelson is a 81 year old female who presents today for wound care of chronic wound on the bottom of the right foot. No changes from previous. Still waiting to hear back from her facilities director about when her diabetic shoes will be [...] peg assist offloading insert. Patient says her facilities director modify this little bit as well -Still waiting to hear back from her facilities director when her diabetic shoes will be ready [...] for the 07/11/23 encounter (Hospital Encounter) with [facility] 1. Allergies Allergen Reactions [...] - 99 MG/DL Final Comment: (NOTE) The [place] [employer] recommends the following guidelines: MG/DL [...] MG/DL Final (more content not included)... Normal [facility] MEDICAL STAFFon 06-20-2023 Manager Personnel Selection Authentication Interface Message Text [facility] 06/20/2023 Patient Name: Hanna [...] peg assist offloading insert. Patient says her facilities director modify this little bit as well -Still [...] 06/20/23 1300 Primary Dressing Collagens;Alginate;Antimicr obial 06/20/23 1343 Secondary Dressing Foam Dressing-Silicone Boarder 06/20/23 1343 Pressure Ulcer Data:. Objective Vitals Signs: Visit [...] for the 06/20/23 encounter (Hospital Encounter) with [facility] 1. Allergies Allergen Reactions [...] - 99 MG/DL Final Comment: (NOTE) The [place] [employer] recommends the following guidelines: MG/DL [...] GM/DL PROTHROMBIN (more content not included)... Normal [facility] CARE PLANon 06-06-2023 Manager Personnel Selection Authentication Interface Message Text Progressing. Normal [facility] MEDICAL STAFFon 06-06-2023 Manager Personnel Selection Authentication Interface Message Text [facility] 06/06/2023 Patient Name: Hanna [...] able to get her new diabetic shoes. Animal Pathologist said it could take some time for [...] peg assist offloading insert. Patient says her facilities director modify this little bit as well -Still [...] for the 06/06/23 encounter (Hospital Encounter) with [facility] 2. Allergies Allergen Reactions [...] - 99 MG/DL Final Comment: (NOTE) The [place] [employer] recommends the following guidelines: MG/DL [...] Ref Range (more content not included)... Normal [facility] NURSING NOTEon 05-31-2023 Manager Personnel Selection Authentication Interface Message Text Why are you [...] [x] Normal Provider Locations PATIENT INSTRUCTIONSon 05-31 Manager Personnel Selection Authentication Interface Message Text Thank you for choosing [facility] for your cardiology care. During your visit today, we reviewed and confirmed your cardiac medications along with medication prescribed by your other healthcare team members. Please be sure to discuss any changes to medication with your providers. Please bring a list of ALL medications (or the bottles) with you to EVERY appointment. Also include vitamins and eozk-hvb-owmddkt medications. Did your provider order testing today? If yes, then you will receive your results in three possible ways. You can receive a [employer] message, a phone call, or letter in the mail. Please note, if you are an active [employer] user, some of your testing will be available within 1-2 days. If blood work was ordered at your visit, an order has already been placed to [facility]. Please contact your nearest [facility] location to schedule an appointment or visit siXis/locations. If we are unable to schedule your testing, you are welcome to contact central scheduling to make those appointment(s) at [phone]. Your provider has made a recommendation for [...] immediately. It's easy to register for a [employer] account if you don't already have one. With a [employer] account you can manage your health record, view test results, schedule appointments and more. Visit [employer] to request your [employer] account today. Dr. Wilson's clinical staff can be reached at the following phone number: [phone] Press Option 2 for Clinical Staff Then Press Option 4 again for Gin PIERSON CONTINUE CURRENT MEDICATIONS FOLLOW UP WITH DR. HERNANDEZ IN 6 MONTHS Normal Provider Locations PROGRESS NOTESon 05-31-2023 Manager Personnel Selection Authentication Interface Message Text [facility] [address] [facility] [id number] Office Note 05/31/2023 Patient Name: [...] of this encounter: 93.4 kg (206 lb).. [facility] Normal Parameters: Age 18 years and older [...] Time Provider Department Center 06/06/2023 1:30 PM [facility] 2 SWOUND [facility] 01/10/2024 9:15 AM Sandi Hernandez, PCIC PCI [facility] 310 Personal, Family and Social history: Past [...] CAUDAL EPIDURAL BLOCK 09/02/2017 ECHO Historical 1987 [facility]- ? Why -Results Good EPIDURAL LUMBAR TRANSFORMINAL Left 03/25/2017 L3-L4 LAMINECTOMY DECOMPRESSION POSTERIOR 3 LEVEL N/A 10/22/2017 LAMINECTOMY DECOMPRESSION POSTERIOR 3 LEVEL performed by Adolfo Edwards MD at [facility] MA[facility] OR LIG/TRNSXJ FLP TUBE ABDL/VAG APPR UNI/BI Ligation or Transection of Fallopian Tubes, Unilat or Bilat LUMBAR TRANSFORAMINAL EPIDURAL 04/29/2017 L4-L5 Other Surgical History Left 01/24/2015 Left Foot Metatarsal Head Bone Biopsy per Dr Ann Vasquez @ [facility] Other Surgical History Right 10/17/2015 Irigation W/Sharp Excisional Debridement Right Foot. Mid Foot Exostectomy per Dr Ann Vasquez @ [facility] Other Surgical History Left 12/19/2010 1st Toe on Left Foot Amputation r/t staph infection [place] [facility] Other Surgical History 2009 Fractured Hip REMOVAL GALLBLADDER [facility] WOUND VAC APPLICATION/CHANGE N/A 10/22/2017 WOUND VAC APPLICATION/CHANGE performed by Adolfo Edwards MD at [facility] MA[facility] OR Social History Socioeconomic History Marital [...] of Onset Diabetes Father Heart Disease Father LA Hypertension Father Cancer Father Prostate No Known [...] included)... Normal Provider Locations CARE PLANon 05-23-2023 Manager Personnel Selection Authentication Interface Message Text Progressing. Normal [facility] MEDICAL STAFFon 05-23-2023 Manager Personnel Selection Authentication Interface Message Text [facility] 05/23/2023 Patient Name: Hanna Nelson : 1940 AGE: [age] year old GENDER: Female Chief Complaint/Reason for Visit Hanna Nelson is a 81 year old female who presents today for wound care of chronic wound on the bottom of the right foot. No changes from previous. She is seeing her facilities director today. She talked to her and said [...] for the 05/23/23 encounter (Hospital Encounter) with [facility] 1. Allergies Allergen Reactions [...] - 99 MG/DL Final Comment: (NOTE) The [place] [employer] recommends the following guidelines: MG/DL <100 = NORMAL GLUCOSE 100-125= IMPAIRED FASTING GLUCOSE >=126 = PROVISIONAL DIAGNOSIS OF DIABETES ADA Workgroup Report, Diabetic Care, volume August 2016 CREATININE Date Value Ref Range Status 01/11/2023 0.9 0.5 - 1.2 MG/ (more content not included)... Normal [facility] CARE PLANon 05-06-2023 Manager Personnel Selection Authentication Interface Message Text Progressing. Normal [facility] MEDICAL STAFFon 05-06-2023 Manager Personnel Selection Authentication Interface Message Text [facility] 05/06/2023 Patient Name: Hanna [...] having the patient go back to her facilities director who originally made her custom diabetic inserts [...] for the 05/06/23 encounter (Hospital Encounter) with [facility] 1. Allergies Allergen Reactions [...] - 99 MG/DL Final Comment: (NOTE) The [place] [employer] recommends the following guidelines: MG/DL [...] Range Stat (more content not included)... Normal [facility] No Panel Informationon 05-06 IMPRESSION: NO SOFT TISSUE GAS. NO ACUTE BONY EROSION. 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 Degenerative changes are similar compared with last years study with some worsening of bony proliferation involving the tarsal metatarsal joints.. There is soft tissue swelling, moderate in degree. [facility] Chikis Montalvo M D - 05/06/2023 05/06/2023 2:57 PM [...] NEUROPATHIC FOOT DICTATED BY: Eduardo HARRISON M.D.Workstation ID:[id number] [facility] Radiology Study observation (narrative) [facility] No Panel InformationOrdered By: Chikis Harrison on 05-06-2023 [facility] Work Phone: XR FOOT RIGHT MINIMUM 3 [...] NEUROPATHIC FOOT DICTATED BY: Eduardo HARRISON M.D.Workstation ID:[id number] Lower extremity ulceration, right, with fat layer exposed (HC CODE) Normal [facility] CARE PLANon 04-18-2023 Manager Personnel Selection Authentication Interface Message Text Progressing. Normal [facility] MEDICAL STAFFon 04-18-2023 Manager Personnel Selection Authentication Interface Message Text [facility] 04/18/2023 Patient Name: Hanna [...] visit ongoing send her back to her facilities director at that time for further more formal [...] with drainage 04/18/23 1300 Wound Bed Appearance [place] 04/04/23 1300 Drainage Amount Moderate 04/18/23 1300 [...] for the 04/18/23 encounter (Hospital Encounter) with [facility] 4. Allergies Allergen Reactions [...] 207 70 (more content not included)... Normal [facility] CARE PLANon 04-04-2023 Manager Personnel Selection Authentication Interface Message Text Progressing. Normal [facility] MEDICAL STAFFon 04-04-2023 Manager Personnel Selection Authentication Interface Message Text [facility] 04/04/2023 Patient Name: Hanna [...] we will send her back to her facilities director office for more formal modifications for offloading [...] with drainage 04/04/23 1300 Wound Bed Appearance [place] 04/04/23 1300 Drainage Amount Small 04/04/23 1300 [...] for the 04/04/23 encounter (Hospital Encounter) with [facility] 3. Allergies Allergen Reactions [...] - 99 MG/DL Final Comment: (NOTE) The [place] [employer] recommends the fol (more content not included)... Normal [facility] NURSING NOTEon 04-04-2023 Manager Personnel Selection Authentication Interface Message Text [facility] [address] [place] [address] Physician Orders Patient Name: Hanna Nelson Start Date: 04/04/2023 Order: Halfway for Wound Care 1. Clean wound(s) with: normal saline 2. Apply to wound(s): Primary: collagen :Ssecondary - silver alginate 3. Secure dressing with: Optifoam Gentle SA 4x4 border foam 4. Change:3/wk 5. Call with any questions or concerns, thank you! Return in 1 week Physician NPI and Signature: Dr. Estiven Mcfadden, DPM NPI# [id number] Home Health Care/ECF: Normal [facility] MAMMOGRAM SCREEN BILAT W/HARISH OSYNTHESISon 01-19-2022 IMPRESSION:BENIGN [...] sent: Category 1-2 Mammogram BI-RADS: [address] [facility] #[id number] - MAMMOGRAM SCREEN BILAT W/TOMOSYNTHESIS DIGITAL SCREENING MAMMOGRAM 3D/2D WITH CAD: 01/18/2022 INDICATIONS: The patient is asymptomatic. Comparison is made to exams dated: 07/17/2019 mammogram and 09/23/2020 mammogram [facility]. There are scattered areas of fibroglandular density in both breasts. Current study was also evaluated with a Computer Aided Detection (CAD) system. There are benign calcifications in both breasts. No significant masses, calcifications, or other findings are seen in either breast. There has been no significant interval change. Chikis Benites M D - 01/19/2022 #[id number] - MAMMOGRAM SCREEN BILAT W/TOMOSYNTHESIS DIGITAL SCREENING MAMMOGRAM 3D/2D WITH CAD: 01/18/2022 INDICATIONS: The patient is asymptomatic. Comparison is made to exams dated: 07/17/2019 mammogram and 09/23/2020 mammogram - [facility]. There are scattered areas of fibroglandular [...] sent: Category 1-2 Mammogram BI-RADS: 2 [facility] MAMMOGRAM SCREEN BILAT W/HARISH OSYNTHESISOrdered By: Chikis Harrison on 01-19-2022 [facility] Work Phone: MAMMOGRAM SCREEN BILAT W/HARISH OSYNTHESISon 01-18-2022 Radiology Study observation (narrative) [facility] Panel Informationon 11-09 IMPRESSION: Stable chronic changes associated with the right midfoot. No acute abnormality demonstrated. Dictated by Pierre Arzate M.D.Workstation ID:[id number] EFRAIN LYNN EXAM: RIGHT FOOT - 3 VIEWS CLINICAL STATEMENT: [id number] - Wound, open, COMPARISON: 07/21/2020 FINDINGS: Pes [...] and third metatarsophalangeal joints.These findings are unchanged. EAPierre Chopra MD - 11/09/2021 EXAM: RIGHT FOOT - 3 VIEWS CLINICAL STATEMENT: [id number] - Wound, open, COMPARISON: 07/21/2020 FINDINGS: Pes [...] abnormality demonstrated. Dictated by Pierre Arzate M.D.Workstation ID:[id number] [facility] Radiology Study observation (narrative) [facility] No Panel InformationOrdered By: Pierre Arzate on 11-09-2021 [facility] Work Phone: CX WOUND COLLECTIONon 2020 [employer] [facility] WCNon 01-12-2021 [facility] WOUND CARE NOTE Name:HANNA NELSON Account: [id number] Progress Note Details Patient Name: HANNA NELSON. [...] is recently gone on a trip to [place] with no issues. Her wounds are healed [...] Smoked When She Was 24 At [facility] [employer], Marital Status - , Retired, Children - 3, Caffeine Use - 2 Cups Daily, 1 coke zero, Alcohol Use - Occasional, Illicit Drug Use - None, Lives with - daughter currently, No Signs/Symptoms of Abuse, Suicide Risk: Patient denies suicidal ideation [facility] PATIENT NAME: HANNA NELSON [address] [place] MEDICAL REC #: [id number] [place] [address] ADMIT DATE: SERVICE DATE: 01/12/21 Wound Care Note ATTENDING PHY: Nic Temple MD WOUND CARE NOTE Name:HANNA NELSON Account: [id number] Medical History This information was obtained from [...] acute distress. Alert and oriented x3. Respiratory: [facility] PATIENT NAME: HANNA NELSON [address] [place] MEDICAL REC #: [id number] [place] [address] ADMIT DATE: SERVICE DATE: 01/12/21 Wound Care Note ATTENDING PHY: Nic Temple MD WOUND CARE NOTE Name:HANNA NELSON Account: [id number] Even respirations without use of accessory muscles. [...] to BLE C (more content not included)... Normal [facility] WOUND CARE NOTE Normal [facility] 01-02-2021 [facility] WOUND CARE NOTE Name:HANNA NELSON Account: [id number] Progress Note Details Patient Name: HANNA NELSON. [...] go next week on a vacation to [place] with her family. She is getting good [...] of level 0/10. The wound margin is [facility] PATIENT NAME: HANNA NELSON [address] [place] REC #: [id number] [place] [id number] ADMIT DATE: SERVICE DATE: 01/02/21 Wound Care Note ATTENDING PHY: Nic Temple MD WOUND CARE NOTE Name:HANNA NELSON Account: [id number] attached. Wound bed has Yes epithelialization, No eschar, No slough, No granulation. The periwound skin exhibited: Edema, Dry/Scaly. The periwound skin did not exhibit: Brawny Induration, Excoriation, Induration, Callus, Crepitus, Fluctuance, Friable, Rash, Moist, Maceration, Atrophie [place], Cyanosis, Ecchymosis, Erythema, Hemosiderosis, Pallor, Rubor. The [...] Normal affect with normal thought pattern. ASSESSMENT [facility] PATIENT NAME: HANNA NELSON [address] [place] MEDICAL REC #: [id number] [place] [address] ADMIT DATE: SERVICE DATE: 01/02/21 Wound Care Note ATTENDING PHY: Nic Temple MD WOUND CARE NOTE Name:HANNA NELSON Account: [id number] Active Problems ICD-10 (Encounter Diagnosis) E11.42 - [...] much as possibl (more content not included)... Normal [facility] WOUND CARE NOTE Name:HANNA NELSON Account: [id number] Progress Note Details Patient Name: HANNA NELSON. [...] Smoked When She Was 24 At [facility] [employer], Marital Status - , Retired, Children - 3, Caffeine Use - 2 Cups Daily, Alcohol Use - Occasional, Illicit Drug Use - None, No Signs/Symptoms of Abuse, Suicide Risk: Patient denies suicidal ideation Medical History This information was obtained from the patient Patient has a medical history of: [facility] PATIENT NAME: HANNA NELSON [address] [place] MEDICAL REC #: [id number] [place] [address] ADMIT DATE: SERVICE DATE: 01/02/21 Wound Care Note ATTENDING PHY: Nic Temple MD WOUND CARE NOTE Name:HANNA NELSON Account: [id number] Atrial Fibrillation Hyperlipidemia Type II Diabetes Hypertension [...] Crepitus, Fluctuance, Friable, Rash, Moist, Maceration, Atrophie [place], Cyanosis, [facility] PATIENT NAME: HANNA NELSON [address] [place] MEDICAL REC #: [id number] [place] [address] ADMIT DATE: SERVICE DATE: 01/02/21 Wound Care Note ATTENDING PHY: Nic Temple MD WOUND CARE NOTE Name:HANNA NELSON Account: [id number] Ecchymosis, Erythema, Hemosiderosis, Pallor, Rubor. The temperature [...] Rubor. The temper (more content not included)... [facility] WOUND CARE NOTE Name:HANNA NELSON Account: [id number] Progress Note Details Patient Name: HANNA NELSON. [...] tract has been noted. No undermining has [facility] PATIENT NAME: HANNA NELSON [address] [place] MEDICAL REC #: [id number] [place] [address] ADMIT DATE: SERVICE DATE: 01/02/21 Wound Care Note ATTENDING PHY: Nic Temple MD WOUND CARE NOTE Name:HANNA NELSON Account: [id number] been noted. There is a scant amount [...] no acute distress. Alert and oriented x3. [facility] PATIENT NAME: HANNA NELSON [address] [place] MEDICAL REC #: [id number] [place] [address] ADMIT DATE: SERVICE DATE: 01/02/21 Wound Care Note ATTENDING PHY: Nic Temple MD WOUND CARE NOTE Name:HANNA NELSON Account: [id number] Respiratory: Even respirations without use of accessory muscles. No intercoastal retractions noted. Even and non labored respiration. Clear to auscultation. Cardiovascular: Regular rate and rhythm. Dopplerable pedal signals. Right lower extremity withou (more content not included)... Normal [facility] WOUND CARE NOTE Normal [facility] ANKLE COMP MIN 3 VWS RTon [...] ---- Signed By: Adolfo Marrero MD PhD [email or web address] Dictated: 12/15/2020 3:57 PM Signed: 12/15/2020 3:58 PM Reported By: ADOLFO MARRERO M.D. Signed By: ADOLFO MARRERO M.D. Normal [facility] FOOT COMP MIN 3 VWS RTon FOOT [...] ---- Signed By: Adolfo Marrero MD PhD [email or web address] Dictated: 12/15/2020 3:55 PM Signed: 12/15/2020 3:57 PM Reported By: ADOLFO MARRERO M.D. Signed By: ADOLFO MARRERO M.D. [facility] 11-24-2020 NON-INVASIVE ARTERIAL REPORT [facility] VASCULAR REPORT - Patient: HANNA NELSON Account [id number] Ordering Phy: MR: [id number] Reason for Visit: I73.9 Date of Service 11/24/20 Reading Physician: Narendra Chavira MD [id number] [phone] CLI LATOYA [employer]/PVR JENN[place] [address] Non- Invasive Vascular Laboratory Lower Extremity Arterial Doppler Report Name: HANNA NELSON Study Date: 11/24/2020 12:27 PM Patient Location: [facility] : 1940 Gender: Female Age: 80 yrs Ethnicity: [place] Accession No. [id number] No. [id number] Order No. [id number] Reason For Study: I73.9 Peripheral vascular disease, unspecified Interpretation Summary Noninvasive arterial segmental study of the right lower extremity exhibits no sign of arterial disease. The ankle/brachial index is 1.2 on the right. Noninvasive arterial segmental study of the left lower extremity CC: Nic Temple MD [facility] PATIENT NAME: HANNA NELSON [address] [place] MEDICAL REC #: [id number] [place] [address] ADMIT DATE: DISCHARGE DATE: NON-INVASIVE ARTERIAL REPORT ATTENDING PHY: Nic Temple MD Electronically Signed by: Narendra Chavira MD Esign Date: 11/24/20 VASCULAR REPORT - Patient: HANNA NELSON Account [id number] Ordering Phy: MR: [id number] Reason for Visit: I73.9 Date of Service [...] CC: Nic Temple CC: Nic Temple MD [facility] PATIENT NAME: HANNA NELSON [address] [place] [address] Dr. [place] MEDICAL REC #: [id number] [place] [address] ADMIT DATE: DISCHARGE DATE: NON-INVASIVE ARTERIAL REPORT ATTENDING PHY: Nic Temple MD Electronically Signed by: Narendra Chavira MD Esign Date: 11/24/20 [facility] Normal [facility] VASCULAR REPORT - Patient: HANNA NELSON Account [id number] Ordering Phy: MR: [id number] Reason for Visit: R60.0 Date of Service 11/21/20 Reading Physician: Willi Chaudhary MD [id number] [phone] CLI [id number] JENNIFER LE VENOUS DUPLEX SCAN [address] [place] [address] Non- Invasive Vascular Laboratory Lower Extremity Venous Duplex __ Name: HANNA NELSON Study Date: 11/21/2020 08:48 AM Patient Location: [facility] : 1940 Gender: Female Age: 80 yrs Ethnicity: [place] Accession No. [id number] No. [id number] Order No. [id number] Reason For Study: R60.0 Localized edema Interpretation Summary No evidence of deep vein thrombosis (DVT) or superficial vein thrombosis in the right lower extremity. No evidence of deep vein thrombosis (DVT) or superficial vein thrombosis in the left lower CC: Nic Temple MD [facility] PATIENT NAME: HANNA NELSON [address] [place] MEDICAL REC #: [id number] [place] [address] ADMIT DATE: DISCHARGE DATE: VENOUS DUPLEX REPORT ATTENDING PHY: Nic Temple MD Electronically Signed by: Willi Chaudhary MD Esign Date: 11/21/20 VASCULAR REPORT - Patient: HANNA NELSON Account [id number] Ordering Phy: MR: [id number] Reason for Visit: R60.0 Date of Service [...] Completely Compressible. Compressible. CC: Nic Temple MD [facility] PATIENT NAME: HANNA NELSON [address] [place] MEDICAL REC #: [id number] [place] [address] ADMIT DATE: DISCHARGE DATE: VENOUS DUPLEX REPORT ATTENDING PHY: Nic Temple MD Electronically Signed by: Willi Chaudhary MD Esign Date: 11/21/20 VASCULAR REPORT - Patient: HANNA NELSON Account [id number] Ordering Phy: MR: [id number] Reason for Visit: R60.0 Date of Service [...] thrombosis. Left Findings CC: Nic Temple MD [facility] PATIENT NAME: HANNA NELSON [address] [place] MEDICAL REC #: [id number] [place] [address] ADMIT DATE: DISCHARGE DATE: VENOUS DUPLEX REPORT ATTENDING PHY: Nic Temple MD Electronically Signed by: Willi Chaudhary MD Esign Date: 11/21/20 VASCULAR REPORT - Patient: HANNA NELSON Account [id number] Ordering Phy: MR: [id number] Reason for Visit: R60.0 Date of Service 11/21/20 Read (more content not included)... Normal [facility] [place] ACCUCHECK GLUCOSEon 10-22-19 Glucose post fast [Mass/Vol] 256 mg/dL [facility] Comment on above: Result Not Confirmed Interpretation and review of laboratory results Abnormal [facility] Glucose post fast [Mass/Vol] 282 mg/dL [facility] Comment on above: NURSE AWARE Interpretation and review of laboratory results Abnormal [facility] Glucose post fast [Mass/Vol] 181 mg/dL [facility] Comment on above: NURSE AWARE Interpretation and review of laboratory results Abnormal [facility] BASIC METABOLIC PANELon 10-10 Anion gap [Moles/Vol] 8 mmol/L [facility] Calcium [Mass/Vol] 8.4 mg/dL Low [facility] Chloride [Moles/Vol] 105 mmol/L [facility] CO2 [Moles/Vol] 22 mmol/L [facility] Creatinine [Mass/Vol] 0.7 mg/dL [facility] GFR/1.73 sq M.predicted MDRD (S/P/Bld) [Vol rate/Area] 82 mL/min/{1.73_m2} ML/MIN/1.7 3M2 [facility] Comment on above: IF THE PATIENT IS , PLEASE MULTIPLY THIS BY 1.159. THIS RESULT HAS BEEN CALCULATED ASSUMING THE PATIENT IS NON- Glucose [Mass/Vol] 205 mg/dL High [facility] Interpretation and review of laboratory results Abnormal [facility] Potassium [Moles/Vol] 3.8 mmol/L Pre [facility] Sodium [Moles/Vol] 135 mmol/L [facility] Urea nitrogen [Mass/Vol] 23 mg/dL [facility] Urea nitrogen/Creatinine [Mass ratio] 34 mg/mg High [facility] CULTURE, BLOODon 10-21-2020 Bacteria identified Cx Nom (U) NO GROWTH 5 DAYS [facility] SPECIAL REQUESTS NONE [facility] SPECIMEN DESCRIPTION BLOOD [facility] Bacteria identified Cx Nom (U) NO GROWTH 5 DAYS [facility] SPECIAL REQUESTS NONE [facility] SPECIMEN DESCRIPTION LINE DRAW [facility] ACCUCHECK GLUCOSEon 10-21-19 21 Glucose post fast [Mass/Vol] 276 mg/dL High [facility] Comment on above: NURSE AWARE Interpretation and review of laboratory results Abnormal [facility] Glucose post fast [Mass/Vol] 289 mg/dL High [facility] Comment on above: NURSE AWARE Interpretation and review of laboratory results Abnormal [facility] Glucose post fast [Mass/Vol] 276 mg/dL High [facility] Comment on above: NURSE AWARE Interpretation and review of laboratory results Abnormal [facility] Glucose post fast [Mass/Vol] 199 mg/dL [facility] Comment on above: NURSE AWARE Interpretation and review of laboratory results Abnormal [facility] BASIC METABOLIC PANELon 10-10 Anion gap [Moles/Vol] 8 mmol/L Pre [facility] Calcium [Mass/Vol] 8.2 mg/dL [facility] Chloride [Moles/Vol] 105 mmol/L [facility] CO2 [Moles/Vol] 22 mmol/L [facility] Creatinine [Mass/Vol] 0.7 mg/dL Pre [facility] GFR/1.73 sq M.predicted MDRD (S/P/Bld) [Vol rate/Area] [...] 32 mg/mg [facility] ACCUCHECK GLUCOSEon 10-20-19 21 Glucose post fast [Mass/Vol] 254 mg/dL [facility] Comment on above: NURSE AWARE Interpretation and review of laboratory results Abnormal [facility] Glucose post fast [Mass/Vol] 276 mg/dL [facility] Comment on above: NURSE AWARE Interpretation and review of laboratory results Abnormal [facility] Glucose post fast [Mass/Vol] 293 mg/dL [facility] Comment on above: NURSE AWARE Interpretation and review of laboratory results Abnormal [facility] Glucose post fast [Mass/Vol] 216 mg/dL High [facility] Comment on above: NURSE AWARE Interpretation and review of laboratory results Abnormal [facility] BASIC METABOLIC PANELon 10-10 Anion gap [Moles/Vol] 14 mmol/L Pre [facility] Calcium [Mass/Vol] 8.2 mg/dL [facility] Chloride [Moles/Vol] 101 mmol/L [facility] CO2 [Moles/Vol] 14 mmol/L Low [facility] Creatinine [Mass/Vol] 0.9 mg/dL Pre [facility] GFR/1.73 sq M.predicted MDRD (S/P/Bld) [Vol rate/Area] 60 mL/min/{1.73_m2} ML/MIN/1.7 3M2 [facility] Comment on above: IF THE PATIENT IS , PLEASE MULTIPLY THIS BY 1.159. THIS RESULT HAS BEEN CALCULATED ASSUMING THE PATIENT IS NON- Glucose [Mass/Vol] 384 mg/dL [facility] Interpretation and review of laboratory results Abnormal [facility] Potassium [Moles/Vol] 4.7 mmol/L Pre [facility] Comment on above: HEMOLYZED POTASSIUM RESULTS ARE ELEVATED BY SPECIMEN HEMOLYSIS Sodium [Moles/Vol] 129 mmol/L [facility] Urea nitrogen [Mass/Vol] 28 mg/dL [facility] Urea nitrogen/Creatinine [Mass ratio] 32 mg/mg High [facility] Anion gap [Moles/Vol] 12 mmol/L Pre [facility] Calcium [Mass/Vol] 8.3 mg/dL [facility] Chloride [Moles/Vol] 103 mmol/L [facility] CO2 [Moles/Vol] 19 mmol/L [facility] Creatinine [Mass/Vol] 0.8 mg/dL Pre [facility] GFR/1.73 sq M.predicted MDRD (S/P/Bld) [Vol rate/Area] 69 mL/min/{1.73_m2} ML/MIN/1.7 3M2 [facility] Comment on above: IF THE PATIENT [...] Urea nitrogen/Creatinine [Mass ratio] 29 mg/mg [facility] ACCUCHECK GLUCOSEon 10-19-19 21 Glucose post fast [Mass/Vol] 309 mg/dL [facility] Comment on above: NURSE AWARE Interpretation and review of laboratory results Abnormal [facility] Glucose post fast [Mass/Vol] 297 mg/dL [facility] Comment on above: NURSE AWARE Interpretation and review of laboratory results Abnormal [facility] Glucose post fast [Mass/Vol] 199 mg/dL [facility] Comment on above: NURSE AWARE Interpretation and review of laboratory results Abnormal [facility] Glucose post fast [Mass/Vol] 152 mg/dL High [facility] Comment on above: NURSE AWARE Interpretation and review of laboratory results Abnormal [facility] BASIC METABOLIC PANELon Anion gap [Moles/Vol] 16 mmol/L [facility] Calcium [Mass/Vol] 8.9 mg/dL [facility] Chloride [Moles/Vol] 106 mmol/L [facility] CO2 [Moles/Vol] 16 mmol/L Low [facility] Creatinine [Mass/Vol] 1.0 [...] [facility] CO2 [Moles/Vol] 17 mmol/L Low [facility] Creatinine [Mass/Vol] 1.2 mg/dL Pre [facility] GFR/1.73 sq M.predicted MDRD (S/P/Bld) [Vol rate/Area] 42 mL/min/{1.73_m2} ML/MIN/1.7 3M2 [facility] Comment on above: IF THE PATIENT IS , PLEASE MULTIPLY THIS BY 1.159. THIS RESULT HAS BEEN CALCULATED ASSUMING THE PATIENT IS NON- Glucose [Mass/Vol] 190 mg/dL [facility] Interpretation and review of laboratory results Abnormal [facility] Potassium [Moles/Vol] 3.1 mmol/L Low [facility] Sodium [Moles/Vol] 134 mmol/L [facility] Urea nitrogen [Mass/Vol] 40 mg/dL [facility] Urea nitrogen/Creatinine [Mass ratio] 34 mg/mg [facility] CLOSTRIDIUM DIFFICILE SCREEN on 10-18-2020 C. DIFFICILE SCREEN NEGATIVE Reference range: NEGATIVE [facility] MRSA BY PCRon 10-18-2020 MRSA BY PCR NOT DETECTED Reference range: NOT DETECTED (NOTE) Reference Range = NOT DETECTED [facility] Service comment (Unsp spec) [Interp] GOMEZ MICHEL [place] [facility] URINALYSIS REFLEX TO CULTURE on 10-18-2020 [...] Health Ketones Ql (U) Negative NEG MG/DL [facility] Leukocyte esterase Test strip Ql (U) Negative NEG [facility] Mucus Ql (Urine sed) TRACE [facility] Nitrite Ql (U) Negative NEG [facility] pH (U) 6.0 [pH] [facility] Protein Ql (U) Negative NEG MG/DL [facility] RBC LM.HPF (Urine sed) [#/Vol] 0-2 U02 /HPF [facility] Service comment (Unsp spec) [Interp] TEST PERFORMED AT [facility] Specific gravity (U) [Rel density] 1.010 [facility] Urobilinogen Test strip Ql (U) NORMAL <2 [facility] WBC LM.HPF (Urine sed) [#/Area] 0-5 U05 /HPF [facility] XR CHEST 1V POST LINE/TUBE P LACEMENTon 10-18-2020 Chest History: PICC line placement Comparison: 09/04/2020 Findings: AP view of the chest demonstrates no focal acute infiltrate. The heart is borderline in size. Right PICC line tip near cavoatrial junction. [facility] Interface, Radiant R esults - 10/18/2020 3:51 PM EST Chest History: PICC line placement Comparison: 09/04/2020 Findings: AP view of the chest demonstrates no focal acute infiltrate. The heart is borderline in size. Right PICC line tip near cavoatrial junction. IMPRESSION: Right PICC line tip near the cavoatrial junction. Dictated by Liset Wilson MD, PhD Workstation ID:[id number] [facility] IMPRESSION: Right PI CC line tip near the cavoatrial junction. Dictated by Liset Wilson MD, PhD Workstation ID:[id number] [facility] ACCUCHECK GLUCOSEon 10-18-19 21 Glucose post fast [Mass/Vol] 233 mg/dL High [facility] Comment on above: NURSE AWARE Interpretation and review of laboratory results Abnormal [facility] Glucose post fast [Mass/Vol] 187 mg/dL [facility] Comment on above: NURSE AWARE Interpretation and review of laboratory results Abnormal [facility] Glucose post fast [Mass/Vol] 236 mg/dL [facility] Comment on above: NURSE AWARE Interpretation and review of laboratory results Abnormal [facility] Glucose post fast [Mass/Vol] 219 mg/dL [facility] Comment on above: NURSE AWARE Interpretation and review of laboratory results Abnormal [facility] Glucose post fast [Mass/Vol] 246 mg/dL [facility] Comment on above: NURSE AWARE Interpretation and review of laboratory results Abnormal [facility] BASIC METABOLIC PANELon Anion gap [Moles/Vol] [...] Interpretation and review of laboratory results Abnormal [facility] Potassium [Moles/Vol] 3.4 mmol/L [facility] Sodium [Moles/Vol] 127 mmol/L [facility] Urea nitrogen [Mass/Vol] 45 mg/dL [facility] Urea nitrogen/Creatinine [Mass ratio] 33 mg/mg High [facility] Anion gap [Moles/Vol] 12 [...] IS NON- Glucose [Mass/Vol] 269 mg/dL [facility] Interpretation and review of laboratory results Abnormal [facility] Potassium [Moles/Vol] 3.2 mmol/L Low [facility] Sodium [Moles/Vol] 125 mmol/L [facility] Urea nitrogen [Mass/Vol] 45 mg/dL [facility] Urea nitrogen/Creatinine [Mass ratio] 39 mg/mg [facility] COMPLETE BLOOD COUNTon 10-17 Erythrocyte distribution width (RBC) [Ratio] 14.8 % 9.0 - 15.0 % [facility] Hematocrit (Bld) [Volume fraction] 29.1 % Low 35.0 - 46.0 % [facility] Hemoglobin (Bld) [Mass/Vol] 9.7 g/dL Low [facility] Interpretation and review of laboratory results Abnormal [facility] MCH (RBC) [Entitic mass] 30.9 pg 27.0 - 33.0 PG [facility] MCHC (RBC) [Mass/Vol] 33.3 g/dL [facility] MCV (RBC) [Entitic vol] 92.7 fL [facility] Platelets (Bld) [#/Vol] 138 10*3/uL [facility] RBC (Bld) [#/Vol] 3.14 10*6/uL Low [facility] WBC (Bld) [#/Vol] 12.8 10*3/uL [facility] OSMOLALITYon 10-17-2020 Osmolality [Osmolality] 294 mosm/kg [facility] OSMOLALITY, URINEon 10-18-19 21 Osmolality (U) [Osmolality] 313 mosm/kg [facility] SODIUM, URINE RANDOMon 10-17 Sodium (U) [Moles/Vol] 20 mmol/L MEQ/L [facility] URIC ACIDon 10-17-2020 Interpretation and review of laboratory results Abnormal [facility] Service comment (Unsp spec) [Interp] 8.7 High [facility] ACCUCHECK GLUCOSEon 10-17-19 21 Glucose post fast [Mass/Vol] 309 mg/dL [facility] Comment on above: NURSE AWARE Interpretation and review of laboratory results Abnormal [facility] Glucose post fast [Mass/Vol] 368 mg/dL [facility] Comment on above: NURSE AWARE Interpretation and review of laboratory results Abnormal [facility] Glucose post fast [Mass/Vol] 312 mg/dL [facility] Comment on above: NURSE AWARE Interpretation and review of laboratory results Abnormal [facility] Glucose post fast [Mass/Vol] 201 mg/dL [facility] Comment on above: NURSE AWARE Interpretation and review of laboratory results Abnormal [facility] BASIC METABOLIC PANELon Anion gap [Moles/Vol] 13 mmol/L [facility] Calcium [Mass/Vol] 8.8 mg/dL [facility] Chloride [Moles/Vol] 94 mmol/L Low [facility] CO2 [Moles/Vol] 18 mmol/L Low [facility] Creatinine [Mass/Vol] 1.3 mg/dL High [facility] GFR/1.73 sq M.predicted MDRD (S/P/Bld) [Vol rate/Area] 39 mL/min/{1.73_m2} ML/MIN/1.7 3M2 [facility] Comment on above: IF THE PATIENT [...] (S/P/Bld) [Vol rate/Area] 39 mL/min/{1.73_m2} ML/MIN/1.7 3M2 [facility] Comment on above: IF THE PATIENT IS , PLEASE MULTIPLY THIS BY 1.159. THIS RESULT HAS BEEN CALCULATED ASSUMING THE PATIENT IS NON- Glucose [Mass/Vol] 205 mg/dL [facility] Interpretation and review of laboratory results Abnormal [facility] Potassium [Moles/Vol] 3.6 mmol/L [facility] Sodium [Moles/Vol] 125 mmol/L Low [facility] Urea nitrogen [Mass/Vol] 47 mg/dL [facility] Urea nitrogen/Creatinine [Mass ratio] 37 mg/mg High [facility] CK (CPK)on 10-16-2020 CK [Catalytic activity/Vol] 121 U/L 0 - 200 U/L [facility] CT EXTREMITY LOWER RIGHT WIT HOUT CONTRASTon 10-16-[address] [facility] [address] EXTREMITY LOWER R IGHT WITHOUT CONTRAST [...] injury. No evidence of acute osseous abnormality. [facility] IMPRESSION: 1. Diffu se edema as well as dorsal skin thickening. No abscess or free air. No acute bony abnormality. 2. 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 DICTATED BY: Conrad Pineda M.D.Workstation ID:[id number] [facility] Interface, Radiana R dineshults - 10/16/2020 1:[address] EXTREMITY [...] remote trauma. DICTATED BY: Conrad Pineda M.D.Workstation ID:[id number] [facility] CT HEAD (URGENT-ANTICOAGULAT ED HEAD INJURY PATIENT)on 10-16-2020 IMPRESSION: 1. NO AC WILLIE INTRACRANIAL HEMORRHAGE OR MASS EFFECT. NO DEPRESSED CALVARIAL FRACTURE. 2. STABLE-APPEARING MILD PRESUMED CHRONIC SMALL VESSEL ISCHEMIC CHANGES. MRI HAS IMPROVED SENSITIVITY FOR RECENT INFARCT OR SUBTLE LESION. DICTATED BY LOREN SALCIDO M.D.Workstation ID:[id number] [facility] CT HEAD (URGENT-ANTICOAGULATED HEAD INJURY PATIENT), 10/15/2020 [...] Hyperostosis frontalis interna. No depressed calvarial fracture. [facility], Radiant R esults - 10/16/2020 12:45 AM [...] SUBTLE LESION. DICTATED BY LOREN SALCIDO M.D.Workstation ID:[id number] [facility] CT SPINE CERVICAL WITHOUT CO NTRASTon 10-16-2020 [facility] IMPRESSION: Multilev el degenerative changes without fracture or subluxation. Dictated by Conrad Pineda M.D.Workstation ID:[id number] [facility] CT SPINE CERVICAL WI THOUT CONTRAST performed [...] tissues are unremarkable. Lung apices are clear, [facility] Interface, Radiant R esults - 10/16/2020 1:14 [...] or subluxation. Dictated by Conrad Pineda M.D.Workstation ID:[id number] [facility] EKG Standardon 10-16-2020 [facility] Ventricular Rate: 79 BPM Atrial Rate: 79 BPM P-R Interval: 172 ms QRS Duration: 94 ms Q-T Interval: 414 ms QTC Calculation(Bazett): 474 ms Calculated P Eastman: 53 degrees Calculated R Eastman: -2 degrees Calculated T Eastman: 30 degrees Diagnosis: Normal sinus rhythm Normal ECG [facility] HEPATIC FUNCTION PANELon Albumin [Mass/Vol] 2.9 g/dL Low [facility] Albumin/Globulin [Mass ratio] 0.9 {ratio} [facility] ALP [Catalytic activity/Vol] 43 U/L 23 - 144 U/L [facility] ALT [Catalytic activity/Vol] 17 U/L 0 - 60 U/L [facility] AST [Catalytic activity/Vol] 27 U/L 0 - 55 U/L [facility] Bilirubin [Mass/Vol] 0.5 mg/dL [facility] Bilirubin.direct [Mass/Vol] 0.2 mg/dL [facility] Bilirubin.indirect [Mass/Vol] 0.3 [facility] Globulin (S) [Mass/Vol] 3.4 g/dL [facility] Interpretation and review of laboratory results Abnormal [facility] Protein [Mass/Vol] 6.3 g/dL [facility] LACTIC ACIDon 10-16-2020 Lactate [Mass/Vol] 1.6 [facility] Otheron 10-16-2020 [facility] SARS COV 2 RNA, QL REAL TIME RT PCRon 10-16-2020 comment, SARS COV-2 RNA, RT PCR (NOTE) [facility] Comment on above: The SARS CoV-2 RNA, Qualitative Real-Time RT-PCR test is a qualitative multi-target molecular diagnostic test that aids in the detection of COVID-19. This test has been authorized by the FDA under an Emergency Use Authorization (EUA) for use by authourized laboratories. Refer to www.cdc.gov for additional information about Coronavirus disease 2019. SARS CoV 2 RNA, RT PCR NOT DETECTED NDET [facility] Comment on above: Reference Range = NO T DETECTED [facility] URINALYSIS MACROSCOPICon Appearance (U) CLEAR [facility] Bilirubin Ql (U) SMALL Abnormal NEG [facility] Color (U) YELLOW [facility] Glucose Ql (U) >=1000 Abnormal NEG MG/DL [facility] Hemoglobin Ql (U) Negative NEG [facility] Interpretation and review of laboratory results Abnormal [facility] Ketones Ql (U) Negative NEG MG/DL [facility] Leukocyte esterase Test strip Ql (U) Negative NEG [facility] Nitrite Ql (U) Negative NEG [facility] pH (U) 5.5 [pH] [facility] Protein Ql (U) Negative NEG MG/DL [facility] Specific gravity (U) [Rel density] 1.015 [facility] Urobilinogen Test strip Ql (U) NORMAL <2 [facility] US VENOUS DOPPLER RIGHT LOWE Dante [...] augmentation and normal response to Valsalva maneuver. [facility] Interface, Radiant R esults - 10/16/2020 1:57 AM EST ULTRASOUND VENOUS [...] thrombosis. Dictated by Conrad Pineda M.D. Workstation ID:[id number] [facility] IMPRESSION: No evide nce of right lower extremity deep or superficial venous thrombosis. Dictated by Conrad Pineda M.D. Workstation ID:[id number] [facility] XR LEG TIBIA / FIBULA RIGHT 2 VIEWSon 10-16-2020 IMPRESSION: No fract ure of the right tibia and fibula. There is subcutaneous edema diffusely in the calf with more focal soft tissue edema at the distal medial calf. DICTATED BY: SAIDA QUINTERO MD Workstation ID:[id number] [facility] Interface, Radiant R esults - 10/16/2020 7:11 AM EST EXAMINATION: XR [...] calf. DICTATED BY: SAIDA QUINTERO MD Workstation ID:[id number] [facility] EXAMINATION: XR LEG TIBIA / FIBULA RIGHT [...] No periostitis or bone erosion is visualized. [facility] BASIC METABOLIC PANELon 03-0 1 Anion gap [Moles/Vol] 16 mmol/L [facility] Calcium [Mass/Vol] 9.6 mg/dL [facility] Chloride [Moles/Vol] 89 mmol/L [facility] CO2 [Moles/Vol] 20 mmol/L [facility] Creatinine [Mass/Vol] 1.5 mg/dL [facility] GFR/1.73 sq M.predicted MDRD (S/P/Bld) [Vol rate/Area] 32 mL/min/{1.73_m2} ML/MIN/1.7 3M2 [facility] Comment on above: IF THE PATIENT [...] 6.4 % Low 14.0 - 51.0 % [facility] MCH (RBC) [Entitic mass] 30.3 pg 27.0 - 33.0 PG [facility] MCHC (RBC) [Mass/Vol] 32.6 g/dL Pre [facility] MCV (RBC) [Entitic vol] 93.1 fL [facility] Monocytes (Bld) [#/Vol] 0.9 10*3/uL [facility] Monocytes/100 WBC (Bld) 6.8 % 0 - 14.0 % [facility] Neutrophils/100 WBC (Bld) 86.1 % High 40.0 - 76.0 % [facility] Platelets (Bld) [#/Vol] 180 10*3/uL [facility] RBC (Bld) [#/Vol] 3.87 10*6/uL Low [facility] WBC (Bld) [#/Vol] 12.7 10*3/uL High [facility] NM MYOCARDIAL PERFUSION IMAG INGon 10-04-2020 CARDIAC [...] by: Nicholas Lemon DO, 10/04/2020 1:02 PM [facility] Vital Signs Date Time Vital Sign Value Performing Clinician Facility 05-31-2025 19:36-0400 Body temperature 98 [degF] Dr. Spenser Grande MD Work Phone: 7(803)[phone] [place] [address] 05-31-2025 19:36-0400 Diastolic blood pressure 77 mm[Hg] Dr. Spenser Grande MD Work Phone: 4(693)[phone] [place] [address] 05-31-2025 19:36-0400 Heart rate 98 /min Dr. Spenser Grande MD Work Phone: 2(755)[phone] [place] [address] 05-31-2025 19:36-0400 Respiratory rate 18 /min Dr. Spenser Grande MD Work Phone: 7(928)[phone] [place] [address] 05-31-2025 19:36-0400 SaO2% (BldA) [Mass fraction] 99 % Dr. Spenser Grande MD Work Phone: 8(119)[phone] [place] [address] 05-31-2025 19:36-0400 Systolic blood pressure 123 mm[Hg] Dr. Spenser Grande MD Work Phone: 8(246)[phone] [place] [address] 05-31-2025 14:22-0400 Body height 177.[address] Spenser Grande MD Work Phone: 1(946)[phone] [place] [address] 05-31-2025 14:22-0400 Body mass index (BMI) [Ratio] 29.7 kg/m2 Dr. Spenser Grande MD Work Phone: 6(047)[phone] [place] [address] 05-31-2025 14:22-0400 Body weight 94.[address] Spenser Grande MD Work Phone: 0(669)[phone] [place] [address] 03-24-2025 12:21-0400 Body temperature 97 [degF] Jennifer Perry DO Work Phone: [facility] 03-24-2025 12:21-0400 Diastolic blood pressure 80 mm[Hg] Jennifer Perry DO Work Phone: [facility] 03-24-2025 12:21-0400 Heart rate 125 /min Jennifer Perry DO Work Phone: [facility] 03-24-2025 12:21-0400 Respiratory rate 16 /min Jennifer Perry DO Work Phone: [facility] 03-24-2025 12:21-0400 SaO2% (BldA) [Mass fraction] 97 % Jennifer Perry DO Work Phone: [facility] 03-24-2025 12:21-0400 Systolic blood pressure 122 mm[Hg] Jennifer Perry DO Work Phone: [facility] 03-22-2025 14:23-0400 Body height 179.7 cm Jennifer Perry DO Work Phone: [facility] 03-20-2025 11:21-0400 Body mass index (BMI) [Ratio] 28.09 kg/m2 Jennifer Perry DO Work Phone: [facility] 03-20-2025 11:21-0400 Body weight 90.72 kg Jennifer Perry DO Work Phone: [facility] 03-15-2025 14:49-0400 Heart rate 115 /min Anastasia Rodriguez MD Work Phone: [facility] 03-15-2025 14:49-0400 Respiratory rate 22 /min Anastasia Rodriguez MD Work Phone: [facility] 03-15-2025 11:27-0400 Body temperature 96.3 [degF] Anastaisa Rodriguez MD Work Phone: [facility] 03-15-2025 11:25-0400 Diastolic blood pressure 99 mm[Hg] Anastasia Rodriguez MD Work Phone: [facility] 03-15-2025 11:25-0400 SaO2% (BldA) [Mass fraction] 100 % Anastasia Rodriguez MD Work Phone: [facility] 03-15-2025 11:25-0400 Systolic blood pressure 148 mm[Hg] Anastasia Rodriguez MD Work Phone: [facility] 03-15-2025 10:26-0400 Body height 177.8 cm Anastasia Rodriguez MD Work Phone: [facility] 03-15-2025 10:26-0400 Body mass index (BMI) [Ratio] 28.7 kg/m2 Anastasia Rodriguez MD Work Phone: [facility] 03-15-2025 10:26-0400 Body weight 90.72 kg Anastasia Rodriguez MD Work Phone: [facility] 03-09-2025 10:23-0400 Body temperature 97.39 [degF] Jennifer Waldrop DPM Work Phone: [facility] 03-09-2025 10:23-0400 Diastolic blood pressure 83 mm[Hg] Jennifer Waldrop DPM Work Phone: [facility] 03-09-2025 10:23-0400 Heart rate 130 /min Jennifer Waldrop DPM Work Phone: [facility] 03-09-2025 10:23-0400 Respiratory rate 18 /min Jennifer Waldrop DPM Work Phone: [facility] 03-09-2025 10:23-0400 Systolic blood pressure 137 mm[Hg] Jennifer Waldrop DPM Work Phone: [facility] 03-02-2025 10:17-0400 Body temperature 97.59 [degF] Jennifer Waldrop DPM Work Phone: [facility] 03-02-2025 10:17-0400 Diastolic blood pressure 80 mm[Hg] Jennifer Waldrop DPM Work Phone: [facility] 03-02-2025 10:17-0400 Heart rate 132 /min Jennifer Waldrop DPM Work Phone: [facility] 03-02-2025 10:17-0400 Respiratory rate 18 /min Jennifer Waldrop DPM Work Phone: [facility] 03-02-2025 10:17-0400 Systolic blood pressure 100 mm[Hg] Jennifer Waldrop DPM Work Phone: [facility] 02-23-2025 10:23-0400 Body height 177.8 cm Jennifer Waldrop DPM Work Phone: [facility] 02-23-2025 10:23-0400 Body mass index (BMI) [Ratio] 28.7 kg/m2 Jennifer Waldrop DPM Work Phone: [facility] 02-23-2025 10:23-0400 Body temperature 97.2 [degF] Jennifer Waldrop DPM Work Phone: [facility] 02-23-2025 10:23-0400 Body weight 90.72 kg Jennifer Waldrop DPM Work Phone: [facility] 02-23-2025 10:23-0400 Diastolic blood pressure 84 mm[Hg] Jennifer Waldrop DPM Work Phone: [facility] 02-23-2025 10:23-0400 Heart rate 62 /min Jennifer Waldrop DPM Work Phone: [facility] 02-23-2025 10:23-0400 Respiratory rate 18 /min Jennifer Waldrop DPM Work Phone: [facility] 02-23-2025 10:23-0400 Systolic blood pressure 145 mm[Hg] Jennifer Jourdan DPM Work Phone: [facility] 02-02-2025 10:57-0400 Body temperature 97.59 [degF] LINO oCnley MD Work Phone: [facility] 02-02-2025 10:57-0400 Heart rate 86 /min LINO Conley MD Work Phone: [facility] 02-02-2025 10:57-0400 Respiratory rate 19 /min LINO Conley MD Work Phone: [facility] 02-02-2025 10:57-0400 SaO2% (BldA) [Mass fraction] 95 % LINO Conley MD Work Phone: [facility] 02-02-2025 07:27-0400 Diastolic blood pressure 101 mm[Hg] LINO Conley MD Work Phone: [facility] 02-02-2025 07:27-0400 Systolic blood pressure 160 mm[Hg] LINO Conley MD Work Phone: [facility] 02-02-2025 00:42-0400 Body mass index (BMI) [Ratio] 30.99 kg/m2 LINO Conley MD Work Phone: [facility] 02-02-2025 00:42-0400 Body weight 97.98 kg LINO Conley MD Work Phone: [facility] 01-27-2025 16:58-0400 Body height 177.8 cm LINO Conley MD Work Phone: [facility] 01-12-2025 09:48-0400 Body temperature 96.91 [degF] Jennifer Waldrop DPM Work Phone: [facility] 01-12-2025 09:48-0400 Diastolic blood pressure 85 mm[Hg] Jennifer Waldrop DPM Work Phone: [facility] 01-12-2025 09:48-0400 Heart rate 58 /min Jennifer Waldrop DPM Work Phone: [facility] 01-12-2025 09:48-0400 Respiratory rate 18 /min Jennifer Waldrop DPM Work Phone: [facility] 01-12-2025 09:48-0400 Systolic blood pressure 136 mm[Hg] Jennifer Waldrop DPM Work Phone: [facility] 01-05-2025 10:03-0400 Body height 177.8 cm Jennifer Waldrop DPM Work Phone: [facility] 01-05-2025 10:03-0400 Body mass index (BMI) [Ratio] 28.98 kg/m2 Jennifer Waldrop DPM Work Phone: [facility] 01-05-2025 10:03-0400 Body temperature 96.91 [degF] Jennifer Waldrop DPM Work Phone: [facility] 01-05-2025 10:03-0400 Body weight 91.63 kg Jennifer Waldrop DPM Work Phone: [facility] 01-05-2025 10:03-0400 Diastolic blood pressure 87 mm[Hg] Jennifer Waldrop DPM Work Phone: [facility] 01-05-2025 10:03-0400 Heart rate 88 /min Jennifer Waldrop DPM Work Phone: [facility] 01-05-2025 10:03-0400 Systolic blood pressure 138 mm[Hg] Jennifer Waldrop DPM Work Phone: [facility] 12-29-2024 11:06-0400 Body temperature 97 [degF] Jennifer Waldrop DPM Work Phone: [facility] 12-29-2024 11:06-0400 Diastolic blood pressure 67 mm[Hg] Jennifer Waldrop DPM Work Phone: [facility] 12-29-2024 11:06-0400 Heart rate 104 /min Jennifer Waldrop DPM Work Phone: [facility] 12-29-2024 11:06-0400 Respiratory rate 18 /min Jennifer Waldrop DPM Work Phone: [facility] 12-29-2024 11:06-0400 Systolic blood pressure 131 mm[Hg] Jennifer Jourdan DPM Work Phone: [facility] 12-24-2024 10:17-0400 Body height 177.8 cm Priscila Laguerre [employer] Work Phone: [facility] 12-24-2024 10:17-0400 Diastolic blood pressure 61 mm[Hg] Priscila Laguerre [employer] Work Phone: [facility] 12-24-2024 10:17-0400 Heart rate 75 /min Priscila Laguerre [employer] - [employer] Work Phone: [facility] 12-24-2024 10:17-0400 Systolic blood pressure 104 mm[Hg] Priscila Laguerre [employer] - [employer] Work Phone: [facility] 12-11-2024 12:53-0400 Body height 177.8 cm Nallely Alas DPM Work Phone: [facility] 12-11-2024 12:53-0400 Body mass index (BMI) [Ratio] 28.98 kg/m2 Nallely Alas DPM Work Phone: [facility] 12-11-2024 12:53-0400 Body temperature 96.69 [degF] Nallely Alas DPM Work Phone: [facility] 12-11-2024 12:53-0400 Body weight 91.63 kg Nallely Alas DPM Work Phone: [facility] 12-11-2024 12:53-0400 Diastolic blood pressure 76 mm[Hg] Nallely Jovon DPM Work Phone: [facility] 12-11-2024 12:53-0400 Heart rate 80 /min Nallely Alas DPM Work Phone: [facility] 12-11-2024 12:53-0400 Systolic blood pressure 146 mm[Hg] Nallely Alas DPM Work Phone: [facility] 12-05-2024 07:40-0400 Body temperature 96.91 [degF] León Nesheim DO Work Phone: [facility] 12-05-2024 07:40-0400 Diastolic blood pressure 67 mm[Hg] León Nesheim DO Work Phone: [facility] 12-05-2024 07:40-0400 Heart rate 63 /min León Nesheim DO Work Phone: [facility] 12-05-2024 07:40-0400 Respiratory rate 18 /min León Nesheim DO Work Phone: [facility] 12-05-2024 07:40-0400 SaO2% (BldA) [Mass fraction] 99 % León Nesheim DO Work Phone: [facility] 12-05-2024 07:40-0400 Systolic blood pressure 120 mm[Hg] León Nesheim DO Work Phone: [facility] 12-03-2024 09:45-0400 Body height 177.8 cm León Nesheim DO Work Phone: [facility] 12-03-2024 01:06-0400 Body mass index (BMI) [Ratio] 29.03 kg/m2 León Nesheim DO Work Phone: [facility] 12-03-2024 01:06-0400 Body weight 91.76 kg León Nesheim DO Work Phone: [facility] 11-27-2024 08:53-0400 Body temperature 96.49 [degF] Marielos Blair [employer] Work Phone: [facility] 11-27-2024 08:53-0400 Diastolic blood pressure 41 mm[Hg] Marielos Blair [employer] - [employer] Work Phone: [facility] 11-27-2024 08:53-0400 Heart rate 59 /min Marielos Blair [employer] - [employer] Work Phone: [facility] 11-27-2024 08:53-0400 Respiratory rate 18 /min Marielos Blair [employer] - [employer] Work Phone: [facility] 11-27-2024 08:53-0400 Systolic blood pressure 89 mm[Hg] Marielos Blair [employer] - [employer] Work Phone: [facility] 11-20-2024 12:51-0400 Body temperature 97.81 [degF] Nallely Jovon DPM Work Phone: [facility] 11-20-2024 12:51-0400 Diastolic blood pressure 67 mm[Hg] Nallely Jovon DPM Work Phone: [facility] 11-20-2024 12:51-0400 Heart rate 62 /min Nallely Jovon DPM Work Phone: [facility] 11-20-2024 12:51-0400 Respiratory rate 18 /min Nallely Jovon DPM Work Phone: [facility] 11-20-2024 12:51-0400 Systolic blood pressure 140 mm[Hg] Nallely Jovon DPM Work Phone: [facility] 11-13-2024 13:54-0400 Body temperature 97.3 [degF] Nallely Jovon DPM Work Phone: [facility] 11-13-2024 13:54-0400 Diastolic blood pressure 62 mm[Hg] Nallely Jovon DPM Work Phone: [facility] 11-13-2024 13:54-0400 Heart rate 71 /min Nallely Jovon DPM Work Phone: [facility] 11-13-2024 13:54-0400 Respiratory rate 18 /min Nallely Jovon DPM Work Phone: [facility] 11-13-2024 13:54-0400 Systolic blood pressure 130 mm[Hg] Nallely Jovon DPM Work Phone: [facility] 11-06-2024 12:50-0400 Body temperature 97.81 [degF] Nallely Jovon DPM Work Phone: [facility] 11-06-2024 12:50-0400 Diastolic blood pressure 68 mm[Hg] Nallely Jovon DPM Work Phone: [facility] 11-06-2024 12:50-0400 Heart rate 64 /min Nallely Jovon DPM Work Phone: [facility] 11-06-2024 12:50-0400 Respiratory rate 18 /min Nallely Jovon DPM Work Phone: [facility] 11-06-2024 12:50-0400 Systolic blood pressure 124 mm[Hg] Nallely Jovon DPM Work Phone: [facility] 10-16-2024 13:02-0500 Body temperature 98.6 [degF] Nallely Jovon DPM Work Phone: [facility] 10-16-2024 13:02-0500 Diastolic blood pressure 76 mm[Hg] Nallely Jovon DPM Work Phone: [facility] 10-16-2024 13:02-0500 Heart rate 78 /min Nallely Jovon DPM Work Phone: [facility] 10-16-2024 13:02-0500 Respiratory rate 18 /min Nallely Jovon DPM Work Phone: [facility] 10-16-2024 13:02-0500 Systolic blood pressure 144 mm[Hg] Nallely Jovon DPM Work Phone: [facility] 10-15-2024 10:51-0500 Diastolic blood pressure 69 mm[Hg] Kraig Wright MD Work Phone: [facility] 10-15-2024 10:51-0500 Heart rate 76 /min Kraig Wright MD Work Phone: [facility] 10-15-2024 10:51-0500 Systolic blood pressure 102 mm[Hg] Kraig Wright MD Work Phone: [facility] 10-15-2024 10:47-0500 Body height 179.7 cm Kraig Wright MD Work Phone: [facility] 10-15-2024 10:47-0500 Body mass index (BMI) [Ratio] 28.01 kg/m2 Kraig Wright MD Work Phone: [facility] 10-15-2024 10:47-0500 Body weight 90.45 kg Kraig Wright MD Work Phone: [facility] 10-09-2024 12:32-0500 Body temperature 97 [degF] Nallely Jovon DPM Work Phone: [facility] 10-09-2024 12:32-0500 Diastolic blood pressure 71 mm[Hg] Nallely Jovon DPM Work Phone: [facility] 10-09-2024 12:32-0500 Heart rate 67 /min Nallely Jovon DPM Work Phone: [facility] [employer] 10-09-2024 12:32-0500 Respiratory rate 18 /min Nallely Jovon DPM Work Phone: [facility] [employer] 10-09-2024 12:32-0500 Systolic blood pressure 145 mm[Hg] Nlalely Jovon DPM Work Phone: [facility] [employer] 10-02-2024 09:06-0500 Body temperature 97.7 [degF] Marielos Blair [employer]IDARIST - [employer]CH[employer]IST [employer] Work Phone: [facility] [employer] 10-02-2024 09:06-0500 Diastolic blood pressure 71 mm[Hg] Marielos Blair [employer]IDARIST - PSYCHOLOGIST [employer] Work Phone: [facility] [employer] 10-02-2024 09:06-0500 Heart rate 66 /min Marielos Blair [employer]IDARIST - PSYCHOLOGIST [employer] Work Phone: [facility] [employer] 10-02-2024 09:06-0500 Respiratory rate 18 /min Marielos Blair [employer]IDARIST - PSYCHOLOGIST [employer] Work Phone: [facility] [employer] 10-02-2024 09:06-0500 Systolic blood pressure 133 mm[Hg] Marielos Blair [employer]ARIST - PSYCHOLOGIST [employer] Work Phone: [facility] [employer] 09-24-2024 09:09-0500 Heart rate 63 /min Janet Niño MD Work Phone: [facility] [employer] 09-24-2024 07:38-0500 Body temperature 96.3 [degF] Janet Niño MD Work Phone: [facility] [employer] 09-24-2024 07:38-0500 Diastolic blood pressure 66 mm[Hg] Janet Niño MD Work Phone: [facility] [employer] 09-24-2024 07:38-0500 Respiratory rate 16 /min Janet Niño MD Work Phone: [facility] [employer] 09-24-2024 07:38-0500 SaO2% (BldA) [Mass fraction] 100 % Janet Niño MD Work Phone: [facility] [employer] 09-24-2024 07:38-0500 Systolic blood pressure 133 mm[Hg] Janet Niño MD Work Phone: [facility] [employer] 09-19-2024 12:46-0500 Body height 177.8 cm Janet [facility] 09-17-2024 13:20-0500 Diastolic blood pressure 75 mm[Hg] Mejgon Denia DO Work Phone: [facility] 09-17-2024 13:20-0500 Heart rate 75 /min Mejgon Denia DO Work Phone: [facility] 09-17-2024 13:20-0500 Respiratory rate 14 /min Mejgon Dneia DO [facility] 09-17-2024 13:20-0500 SaO2% (BldA) [Mass fraction] 100 % Mejgon Denia DO Work Phone: [facility] [employer] 09-17-2024 13:20-0500 Systolic blood pressure 132 mm[Hg] Mejgon Denia DO Work Phone: [facility] [employer] 09-17-2024 12:04-0500 Body height 177.8 cm Mejgon Denia DO [facility] 09-17-2024 12:04-0500 Body mass index (BMI) [Ratio] 28.7 kg/m2 Mejgon Denia DO Work Phone: [facility] 09-17-2024 12:04-0500 Body temperature 97.81 [degF] Mejgon Denia DO Work Phone: [facility] [employer] 09-17-2024 12:04-0500 Body weight 90.72 kg Mejgon Denia DO [facility] 03-19-2024 13:52-0400 Body temperature 96.21 [degF] Nader Ray MD Work Phone: [facility] 03-19-2024 13:52-0400 Diastolic blood pressure 70 mm[Hg] Nader Ray MD Work Phone: [facility] 03-19-2024 13:52-0400 Heart rate 64 /min Nader Ray MD Work Phone: [facility] 03-19-2024 13:52-0400 Respiratory rate 16 /min Nader Ray MD Work Phone: [facility] 03-19-2024 13:52-0400 Systolic blood pressure 154 mm[Hg] Nader Ray MD Work Phone: [facility] 03-05-2024 13:18-0400 Body temperature 96.3 [degF] Nader Ray MD Work Phone: [facility] 03-05-2024 13:18-0400 Diastolic blood pressure 60 mm[Hg] Nader Ray MD Work Phone: [facility] 03-05-2024 13:18-0400 Heart rate 67 /min Nader Ray MD Work Phone: [facility] 03-05-2024 13:18-0400 Respiratory rate 16 /min Nader Ray MD Work Phone: [facility] 03-05-2024 13:18-0400 Systolic blood pressure 137 mm[Hg] Nader Ray MD Work Phone: [facility] 01-30-2024 13:52-0400 Diastolic blood pressure 75 mm[Hg] Nader Ray MD Work Phone: [facility] 01-30-2024 13:52-0400 Heart rate 107 /min Nader Ray MD Work Phone: [facility] 01-30-2024 13:52-0400 Systolic blood pressure 123 mm[Hg] Nader Ray MD Work Phone: [facility] 01-30-2024 13:51-0400 Body temperature 96.3 [degF] Nader Ray MD Work Phone: [facility] 01-30-2024 13:51-0400 Respiratory rate 16 /min Nader Ray MD Work Phone: [place] [employer] 01-23-2024 13:33-0400 Body temperature 96.91 [degF] Nader Ray MD Work Phone: [place] [employer] 01-23-2024 13:33-0400 Diastolic blood pressure 70 mm[Hg] Nader Ray MD Work Phone: [place] [employer] 01-23-2024 13:33-0400 Heart rate 83 /min Nader Ray MD [facility] [employer] 01-23-2024 13:33-0400 Respiratory rate 16 /min Nader Ray MD Work Phone: [place] [employer] 01-23-2024 13:33-0400 Systolic blood pressure 154 mm[Hg] Nader Ray MD Work Phone: [place] [employer] 01-09-2024 14:02-0400 Body temperature 97.11 [degF] Nader Ray MD [facility] [employer] 01-09-2024 14:02-0400 Diastolic blood pressure 82 mm[Hg] Nader Ray MD [facility] [employer] 01-09-2024 14:02-0400 Heart rate 76 /min Nader Ray MD [facility] [employer] 01-09-2024 14:02-0400 Respiratory rate 16 /min Nader Ray MD [facility] [employer] 01-09-2024 14:02-0400 Systolic blood pressure 172 mm[Hg] Nader Ray MD [facility] [employer] 12-19-2023 12:32-0400 Body temperature 97.9 [degF] Nader Ray MD Work Phone: [place] [employer] 12-19-2023 12:32-0400 Diastolic blood pressure 70 mm[Hg] Nader Ray MD [facility] [employer] 12-19-2023 12:32-0400 Heart rate 72 /min Nader Ray MD [facility] [employer] 12-19-2023 12:32-0400 Respiratory rate 16 /min Nader Ray MD Work Phone: [place] [employer] 12-19-2023 12:32-0400 Systolic blood pressure 165 mm[Hg] Nader Ray MD Work Phone: [place] [employer] 12-12-2023 14:41-0400 Body temperature 97.3 [degF] Nader Ray MD [facility] [employer] 12-12-2023 14:41-0400 Diastolic blood pressure 67 mm[Hg] Nader Ray MD [facility] Phone: [facility] [employer] 12-12-2023 14:41-0400 Heart rate 76 /min Nader Ray MD [facility] [employer] 12-12-2023 14:41-0400 Respiratory rate 16 /min Nader Ray MD Work Phone: [facility] 12-12-2023 14:41-0400 Systolic blood pressure 147 mm[Hg] Nader Ray MD [facility] [employer] 11-25-2023 15:10-0400 Body temperature 97.2 [degF] Nader Ray MD Work Phone: [facility] 11-25-2023 15:10-0400 Diastolic blood pressure 65 mm[Hg] Nader Ray MD Work Phone: [facility] 11-25-2023 15:10-0400 Heart rate 79 /min Nader Ray MD Work Phone: [facility] 11-25-2023 15:10-0400 Respiratory rate 16 /min Nader Ray MD Work Phone: [facility] 11-25-2023 15:10-0400 Systolic blood pressure 141 mm[Hg] Nader Ray MD Work Phone: [facility] 11-14-2023 13:32-0400 Body temperature 96.3 [degF] Nader Ray MD Work Phone: [facility] 11-14-2023 13:32-0400 Diastolic blood pressure 79 mm[Hg] Nader Ray MD Work Phone: [facility] 11-14-2023 13:32-0400 Heart rate 71 /min Nader Ray MD Work Phone: [facility] 11-14-2023 13:32-0400 Respiratory rate 16 /min Nader Ray MD Work Phone: [facility] 11-14-2023 13:32-0400 Systolic blood pressure 132 mm[Hg] Nader Ray MD Work Phone: [facility] 11-12-2023 09:07-0400 Diastolic blood pressure 98 mm[Hg] Norberto Rubio MD Work Phone: [facility] 11-12-2023 09:07-0400 Heart rate 82 /min Norberto Rubio MD Work Phone: [facility] 11-12-2023 09:07-0400 Systolic blood pressure 132 mm[Hg] Norberto Rubio MD Work Phone: [facility] 11-12-2023 08:38-0400 Body temperature 97.5 [degF] Norberto Rubio MD Work Phone: [facility] 11-12-2023 08:38-0400 Respiratory rate 17 /min Norberto Rubio MD Work Phone: [facility] 11-12-2023 08:38-0400 SaO2% (BldA) [Mass fraction] 97 % Norberto Rubio MD Work Phone: [facility] 11-12-2023 06:03-0400 Body mass index (BMI) [Ratio] 30.15 kg/m2 Norberto Rubio MD Work Phone: [facility] 11-12-2023 06:03-0400 Body weight 95.3 kg Norberto Rubio MD Work Phone: [facility] 11-10-2023 19:52-0400 Body height 177.8 cm Norberto Rubio MD Work Phone: [facility] 10-17-2023 13:38-0500 Body temperature 96.91 [degF] Nader Ray MD Work Phone: [facility] 10-17-2023 13:38-0500 Diastolic blood pressure 72 mm[Hg] Nader Ray MD Work Phone: [facility] 10-17-2023 13:38-0500 Heart rate 76 /min Nader Ray MD Work Phone: [facility] 10-17-2023 13:38-0500 Respiratory rate 16 /min Nader Ray MD Work Phone: [facility] 10-17-2023 13:38-0500 Systolic blood pressure 154 mm[Hg] Nader Ray MD Work Phone: [facility] 10-03-2023 13:39-0500 Body temperature 95.9 [degF] Nader Ray MD Work Phone: [facility] 10-03-2023 13:39-0500 Diastolic blood pressure 61 mm[Hg] Nader Ray MD Work Phone: [facility] 10-03-2023 13:39-0500 Heart rate 100 /min Nader Ray MD Work Phone: [facility] 10-03-2023 13:39-0500 Respiratory rate 16 /min Nader Ray MD Work Phone: [facility] 10-03-2023 13:39-0500 Systolic blood pressure 124 mm[Hg] Nader Ray MD Work Phone: [facility] 09-19-2023 13:30-0500 Body temperature 96.01 [degF] Nader Ray MD Work Phone: [facility] 09-19-2023 13:30-0500 Diastolic blood pressure 74 mm[Hg] Nader Ray MD Work Phone: [facility] 09-19-2023 13:30-0500 Heart rate 82 /min Nader Ray MD Work Phone: [facility] 09-19-2023 13:30-0500 Respiratory rate 16 /min Nader Ray MD Work Phone: [facility] 09-19-2023 13:30-0500 Systolic blood pressure 162 mm[Hg] Nader Ray MD Work Phone: [facility] 09-05-2023 13:30-0500 Diastolic blood pressure 66 mm[Hg] Nader Ray MD Work Phone: [facility] 09-05-2023 13:30-0500 Heart rate 80 /min Nader Ray MD Work Phone: [facility] 09-05-2023 13:30-0500 Systolic blood pressure 142 mm[Hg] Nader Ray MD Work Phone: [facility] 09-05-2023 13:29-0500 Body temperature 97 [degF] Nadre Ray MD Work Phone: [facility] 09-05-2023 13:29-0500 Respiratory rate 16 /min Nader Ray MD Work Phone: [facility] 08-22-2023 13:18-0500 Body temperature 96.69 [degF] Nader Ray MD Work Phone: [facility] 08-22-2023 13:18-0500 Diastolic blood pressure 72 mm[Hg] Nader Ray MD Work Phone: [facility] 08-22-2023 13:18-0500 Heart rate 80 /min Nader Ray MD Work Phone: [facility] 08-22-2023 13:18-0500 Respiratory rate 16 /min Nader Ray MD Work Phone: [facility] 08-22-2023 13:18-0500 Systolic blood pressure 136 mm[Hg] Ndaer Ray MD Work Phone: [facility] 08-01-2023 13:34-0500 Body temperature 96.3 [degF] Nader Ray MD Work Phone: [facility] 08-01-2023 13:34-0500 Diastolic blood pressure 67 mm[Hg] Nader Ray MD Work Phone: [facility] 08-01-2023 13:34-0500 Heart rate 73 /min Nader Ray MD Work Phone: [facility] 08-01-2023 13:34-0500 Respiratory rate 16 /min Nader Ray MD Work Phone: [facility] 08-01-2023 13:34-0500 Systolic blood pressure 138 mm[Hg] Nader Ray MD Work Phone: [facility] 07-25-2023 13:27-0500 Diastolic blood pressure 71 mm[Hg] Nader Ray MD Work Phone: [facility] 07-25-2023 13:27-0500 Heart rate 74 /min Nader Ray MD Work Phone: [facility] 07-25-2023 13:27-0500 Systolic blood pressure 151 mm[Hg] Nader Ray MD Work Phone: [facility] 07-25-2023 13:26-0500 Body temperature 97 [degF] Nader Ray MD Work Phone: [facility] 07-25-2023 13:26-0500 Respiratory rate 16 /min Nader Ray MD Work Phone: [facility] 07-11-2023 13:45-0500 Diastolic blood pressure 74 mm[Hg] Nader Ray MD Work Phone: [facility] 07-11-2023 13:45-0500 Heart rate 108 /min Nader Ray MD Work Phone: [facility] 07-11-2023 13:45-0500 Systolic blood pressure 146 mm[Hg] Nader Ray MD Work Phone: [facility] 07-11-2023 13:41-0500 Body temperature 97.3 [degF] Nader Ray MD Work Phone: [facility] 07-11-2023 13:41-0500 Respiratory rate 16 /min Nader Ray MD Work Phone: [facility] 06-20-2023 13:26-0500 Body temperature 96.3 [degF] Nader Ray MD Work Phone: [facility] 06-20-2023 13:26-0500 Diastolic blood pressure 72 mm[Hg] Nader Ray MD Work Phone: [facility] 06-20-2023 13:26-0500 Heart rate 77 /min Nader Ray MD Work Phone: [facility] 06-20-2023 13:26-0500 Respiratory rate 16 /min Nader Ray MD Work Phone: [facility] 06-20-2023 13:26-0500 Systolic blood pressure 166 mm[Hg] Nader Ray MD Work Phone: [facility] 06-06-2023 13:38-0400 Diastolic blood pressure 85 mm[Hg] Nader Ray MD Work Phone: [facility] 06-06-2023 13:38-0400 Heart rate 77 /min Nader Ray MD Work Phone: [facility] 06-06-2023 13:38-0400 Systolic blood pressure 141 mm[Hg] Nader Ray MD Work Phone: [facility] 06-06-2023 13:37-0400 Body temperature 97.3 [degF] Nader Ray MD Work Phone: [facility] 06-06-2023 13:37-0400 Respiratory rate 16 /min Nader Ray MD Work Phone: [facility] 05-23-2023 13:45-0400 Body temperature 97.11 [degF] Nader Ray MD Work Phone: [facility] 05-23-2023 13:45-0400 Respiratory rate 16 /min Nader Ray MD Work Phone: [facility] 05-06-2023 13:25-0400 Body temperature 96.69 [degF] Nader Ray MD Work Phone: [facility] 05-06-2023 13:25-0400 Diastolic blood pressure 67 mm[Hg] Nader Ray MD Work Phone: [facility] 05-06-2023 13:25-0400 Heart rate 80 /min Nader Ray MD Work Phone: [facility] 05-06-2023 13:25-0400 Respiratory rate 14 /min Nader Ray MD Work Phone: [facility] 05-06-2023 13:25-0400 Systolic blood pressure 146 mm[Hg] Nader Ray MD Work Phone: [facility] 04-18-2023 13:22-0400 Diastolic blood pressure 68 mm[Hg] Nader Ray MD Work Phone: [facility] 04-18-2023 13:22-0400 Heart rate 64 /min Nader Ray MD Work Phone: [facility] 04-18-2023 13:22-0400 Systolic blood pressure 148 mm[Hg] Nader Ray MD Work Phone: [facility] 04-18-2023 13:09-0400 Body temperature 97.3 [degF] Nader Ray MD Work Phone: [facility] 04-18-2023 13:09-0400 Respiratory rate 16 /min Nader Ray MD Work Phone: [facility] 03-21-2023 13:32-0400 Body temperature 96.21 [degF] Nader Ray MD Work Phone: [facility] 03-21-2023 13:32-0400 Diastolic blood pressure 79 mm[Hg] Nader Ray MD Work Phone: [facility] 03-21-2023 13:32-0400 Heart rate 81 /min Nader Ray MD Work Phone: [facility] 03-21-2023 13:32-0400 Respiratory rate 16 /min Nader Ray MD Work Phone: [facility] 03-21-2023 13:32-0400 Systolic blood pressure 152 mm[Hg] Nader Ray MD Work Phone: [facility] 03-07-2023 13:36-0400 Body temperature 97.81 [degF] Nader Ray MD Work Phone: [facility] 03-07-2023 13:36-0400 Diastolic blood pressure 77 mm[Hg] Nader Ray MD Work Phone: [facility] 03-07-2023 13:36-0400 Heart rate 101 /min Nader Ray MD Work Phone: [facility] 03-07-2023 13:36-0400 Respiratory rate 16 /min Nader Ray MD Work Phone: [facility] 03-07-2023 13:36-0400 Systolic blood pressure 130 mm[Hg] Nader Ray MD Work Phone: [facility] 02-01-2022 15:17-0400 Body temperature 97.5 [degF] Estiven Mcfadden DPM Work Phone: [facility] 02-01-2022 15:17-0400 Diastolic blood pressure 73 mm[Hg] Estiven Mcfadden DPM Work Phone: [facility] 02-01-2022 15:17-0400 Heart rate 74 /min Estiven Mcfadden DPM Work Phone: [facility] 02-01-2022 15:17-0400 Respiratory rate 18 /min Estiven Mcfadden DPM Work Phone: [facility] 02-01-2022 15:17-0400 Systolic blood pressure 145 mm[Hg] Estiven Mcfadden DPM Work Phone: [facility] 01-11-2022 14:55-0400 Body temperature 97.81 [degF] Estiven Mcfadden DPM Work Phone: [facility] 01-11-2022 14:55-0400 Diastolic blood pressure 67 mm[Hg] Estiven Mcfadden DPM Work Phone: [place] [employer] 01-11-2022 14:55-0400 Heart rate 74 /min Estiven Mcfadden DPM Work Phone: [place] [employer] 01-11-2022 14:55-0400 Respiratory rate 18 /min Estiven Mcfadden DPM Work Phone: [place] [employer] 01-11-2022 14:55-0400 Systolic blood pressure 139 mm[Hg] Estiven Mcfadden DPM [facility] Phone: [facility] [employer] 12-28-2021 14:53-0400 Body temperature 97.11 [degF] Estiven Mcfadden DPM Work Phone: [facility] [employer] 12-28-2021 14:53-0400 Diastolic blood pressure 77 mm[Hg] Estiven Mcfadden DPM Work Phone: [facility] [employer] 12-28-2021 14:53-0400 Heart rate 74 /min Estiven Mcfadden DPM Work Phone: [facility] 12-28-2021 14:53-0400 Respiratory rate 18 /min Estiven Mcfadden DPM Work Phone: [facility] [employer] 12-28-2021 14:53-0400 Systolic blood pressure 142 mm[Hg] Estiven Mcfadden DPM Work Phone: [facility] [employer] 12-14-2021 12:54-0400 Body temperature 97.81 [degF] Estiven Mcfadden DPM Work Phone: [facility] [employer] 12-14-2021 12:54-0400 Diastolic blood pressure 89 mm[Hg] Estiven Mcfadden DPM Work Phone: [facility] 12-14-2021 12:54-0400 Heart rate 71 /min Estiven Mcfadden DPM Work Phone: [facility] 12-14-2021 12:54-0400 Respiratory rate 16 /min Estiven Mcfadden DPM Work Phone: [facility] 12-14-2021 12:54-0400 Systolic blood pressure 172 mm[Hg] Estiven Mcfadden DPM Work Phone: [place] [employer] 11-23-2021 13:05-0400 Diastolic blood pressure 82 mm[Hg] Estiven Mcfadden DPM Work Phone: [place] [employer] 11-23-2021 13:05-0400 Heart rate 71 /min Estiven Mcfadden DPM Work Phone: [place] [employer] 11-23-2021 13:05-0400 Systolic blood pressure 165 mm[Hg] Estiven Mcfadden DPM Work Phone: [facility] 11-23-2021 12:55-0400 Body temperature 97.9 [degF] Estiven Mcfadden DPM Work Phone: [place] [employer] 11-23-2021 12:55-0400 Respiratory rate 16 /min Estiven Mcfadden DPM Work Phone: [facility] [employer] 11-09-2021 13:00-0400 Body temperature 98.29 [degF] Ashlie Cardenas MD Work Phone: [facility] [employer] 11-09-2021 13:00-0400 Diastolic blood pressure 87 mm[Hg] Ashlie Cardenas MD Work Phone: [facility] [employer] 11-09-2021 13:00-0400 Heart rate 76 /min Ashlie Cardenas MD Work Phone: [facility] 11-09-2021 13:00-0400 Respiratory rate 18 /min Ashlie Cardenas MD Work Phone: [facility] 11-09-2021 13:00-0400 Systolic blood pressure 191 mm[Hg] Ashlie Cardenas MD Work Phone: [place] [employer] 10-26-2021 10:36-0400 Body temperature 98.29 [degF] Nader Ray MD Work Phone: [facility] 10-26-2021 10:36-0400 Diastolic blood pressure 72 mm[Hg] Nader Ray MD Work Phone: [facility] 10-26-2021 10:36-0400 Heart rate 78 /min Nader Ray MD Work Phone: [facility] 10-26-2021 10:36-0400 Respiratory rate 16 /min Nader Ray MD Work Phone: [facility] 10-26-2021 10:36-0400 Systolic blood pressure 140 mm[Hg] Ndaer Ray MD Work Phone: [facility] 10-05-2021 10:11-0500 Body temperature 97.59 [degF] Nader Ray MD Work Phone: [facility] 10-05-2021 10:11-0500 Diastolic blood pressure 76 mm[Hg] Nader Ray MD Work Phone: [facility] 10-05-2021 10:11-0500 Heart rate 74 /min Nader Ray MD Work Phone: [facility] 10-05-2021 10:11-0500 Respiratory rate 16 /min Nader Ray MD Work Phone: [facility] 10-05-2021 10:11-0500 Systolic blood pressure 154 mm[Hg] Nader Ray MD Work Phone: [facility] 09-21-2021 10:08-0500 Body temperature 98.71 [degF] Nader Ray MD Work Phone: [facility] 09-21-2021 10:08-0500 Diastolic blood pressure 71 mm[Hg] Nader Ray MD Work Phone: [facility] 09-21-2021 10:08-0500 Heart rate 75 /min Nadre Ray MD Work Phone: [facility] 09-21-2021 10:08-0500 Respiratory rate 16 /min Nader Ray MD Work Phone: [facility] 09-21-2021 10:08-0500 Systolic blood pressure 154 mm[Hg] Nader Ray MD Work Phone: [facility] 08-31-2021 10:29-0500 Body temperature 98.4 [degF] Nader Ray MD Work Phone: [facility] 08-31-2021 10:29-0500 Diastolic blood pressure 73 mm[Hg] Nader Ray MD Work Phone: [facility] 08-31-2021 10:29-0500 Heart rate 69 /min Nader Ray MD Work Phone: [facility] 08-31-2021 10:29-0500 Respiratory rate 16 /min Nader Ray MD Work Phone: [facility] 08-31-2021 10:29-0500 Systolic blood pressure 161 mm[Hg] Nader Ray MD Work Phone: [facility] 08-17-2021 10:14-0500 Body temperature 98.29 [degF] Nader Ray MD Work Phone: [facility] 08-17-2021 10:14-0500 Diastolic blood pressure 83 mm[Hg] Nader Ray MD Work Phone: [facility] 08-17-2021 10:14-0500 Heart rate 77 /min Nader Ray MD Work Phone: [facility] 08-17-2021 10:14-0500 Respiratory rate 16 /min Nader Ray MD Work Phone: [facility] 08-17-2021 10:14-0500 Systolic blood pressure 183 mm[Hg] Nader Ray MD Work Phone: [facility] 08-03-2021 10:12-0500 Body temperature 97.9 [degF] Nader Ray MD Work Phone: [facility] 08-03-2021 10:12-0500 Diastolic blood pressure 74 mm[Hg] Nader Ray MD Work Phone: [facility] 08-03-2021 10:12-0500 Heart rate 73 /min Nader Ray MD Work Phone: [facility] 08-03-2021 10:12-0500 Respiratory rate 16 /min Nader Ray MD Work Phone: [place] [employer] 08-03-2021 10:12-0500 Systolic blood pressure 143 mm[Hg] Nader Ray MD Work Phone: [place] [employer] 07-20-2021 10:05-0500 Body temperature 98.6 [degF] Ashlie Cardenas MD Work Phone: [place] [employer] 07-20-2021 10:05-0500 Diastolic blood pressure 71 mm[Hg] Ashlie Cardenas MD Work Phone: [place] [employer] 07-20-2021 10:05-0500 Heart rate 76 /min Ashlie Cardenas MD Work Phone: [place] [employer] 07-20-2021 10:05-0500 Respiratory rate 16 /min Ashlie Cardenas MD Work Phone: [place] [facility] 07-20-2021 10:05-0500 Systolic blood pressure 148 mm[Hg] Ashlie Cardenas MD Work Phone: [facility] 07-13-2021 09:03-0500 Body temperature 98.49 [degF] Nader Ray MD [facility] 07-13-2021 09:03-0500 Diastolic blood pressure 88 mm[Hg] Nader Ray MD Work Phone: [facility] 07-13-2021 09:03-0500 Heart rate 85 /min Nader Ray MD Work Phone: [facility] 07-13-2021 09:03-0500 Respiratory rate 16 /min Nader Ray MD Work Phone: [place] [employer] 07-13-2021 09:03-0500 Systolic blood pressure 152 mm[Hg] Nader Ray MD Work Phone: [place] [employer] 06-29-2021 10:14-0500 Body temperature 99.3 [degF] Nader Ray MD Work Phone: [facility] 06-29-2021 10:14-0500 Diastolic blood pressure 67 mm[Hg] Nader Ray MD Work Phone: [facility] 06-29-2021 10:14-0500 Heart rate 77 /min Nader Ray MD Work Phone: [facility] 06-29-2021 10:14-0500 Respiratory rate 16 /min Nader Ray MD Work Phone: [facility] 06-29-2021 10:14-0500 Systolic blood pressure 154 mm[Hg] Nader Ray MD Work Phone: [facility] 06-22-2021 09:42-0500 Body temperature 98.6 [degF] Nader Ray MD Work Phone: [facility] 06-22-2021 09:42-0500 Diastolic blood pressure 65 mm[Hg] Nader Ray MD Work Phone: [facility] 06-22-2021 09:42-0500 Heart rate 80 /min Nader Ray MD Work Phone: [facility] 06-22-2021 09:42-0500 Respiratory rate 16 /min Nader Ray MD Work Phone: [facility] 06-22-2021 09:42-0500 Systolic blood pressure 143 mm[Hg] Nader Ray MD Work Phone: [facility] 03-31-2021 10:52-0400 Body temperature 98.29 [degF] Nader Ray MD Work Phone: [facility] 03-31-2021 10:52-0400 Diastolic blood pressure 71 mm[Hg] Nader Ray MD Work Phone: [facility] 03-31-2021 10:52-0400 Heart rate 73 /min Nader Ray MD Work Phone: [facility] 03-31-2021 10:52-0400 Respiratory rate 16 /min Nader Ray MD Work Phone: [facility] 03-31-2021 10:52-0400 Systolic blood pressure 151 mm[Hg] Nader Ray MD Work Phone: [facility] 03-24-2021 11:11-0400 Diastolic blood pressure 73 mm[Hg] Nader Ray MD Work Phone: [facility] 03-24-2021 11:11-0400 Heart rate 68 /min Nader Ray MD Work Phone: [facility] 03-24-2021 11:11-0400 Systolic blood pressure 163 mm[Hg] Nader Ray MD Work Phone: [facility] 03-24-2021 11:08-0400 Body temperature 99.1 [degF] Nader Ray MD Work Phone: [facility] 03-24-2021 11:08-0400 Respiratory rate 16 /min aNder Ray MD Work Phone: [facility] 03-17-2021 14:10-0400 Body temperature 98.4 [degF] Nader Ray MD Work Phone: [facility] 03-17-2021 14:10-0400 Diastolic blood pressure 72 mm[Hg] Nader Ray MD Work Phone: [facility] 03-17-2021 14:10-0400 Heart rate 70 /min Nader Ray MD Work Phone: [facility] 03-17-2021 14:10-0400 Respiratory rate 18 /min Nader Ray MD Work Phone: [facility] 03-17-2021 14:10-0400 Systolic blood pressure 158 mm[Hg] Nader Ray MD Work Phone: [facility] 10-21-2020 18:25-0500 Pulse (Heart Rate) 81 /min Antwan Rebolledo [facility] 10-21-2020 18:25-0500 Respiratory Rate 19 /min [facility]twan [facility] 10-21-2020 15:02-0500 Body Temperature 97.5 [degF] Antwan [facility] 10-21-2020 15:02-0500 BP Diastolic 58 mm[Hg] Antwan [facility] 10-21-2020 15:02-0500 BP Systolic 118 mm[Hg] [facility]an[facility] 10-21-2020 15:02-0500 Pulse Oximetry 99 % Antwan [facility] 10-16-2020 02:59-0500 BMI (Body Mass Index) 27.99 kg/m2 [facility] 10-16-2020 02:59-0500 Body weight 91.04 kg Antwan [facility] 10-16-2020 02:59-0500 Height 180.3 cm Antwan [facility] 04-07-2020 10:17-0400 Body Temperature 98.8 [degF] [facility] 04-07-2020 10:17-0400 BP Diastolic 67 mm[Hg] [facility] 04-07-2020 10:17-0400 BP Systolic 150 mm[Hg] [facility] 04-07-2020 10:17-0400 Pulse (Heart Rate) 72 /min [facility] 04-07-2020 10:17-0400 Respiratory Rate 18 /min [facility] 03-31-2020 10:17-0400 Body Temperature 98.29 [degF] [facility] 03-31-2020 10:17-0400 BP Diastolic 72 mm[Hg] [facility] 03-31-2020 10:17-0400 BP Systolic 146 mm[Hg] [facility] 03-31-2020 10:17-0400 Pulse (Heart Rate) 74 /min [facility] Encounters Encounter Date Encounter Type Care Provider Facility Start: 06-07-2025 ambulatory Prasannagloria Caceres ty[facility] Start: 06-04-2025 ambulatory Prasannagloria Caceres ty:[facility] Start: 06-01-2025 ambulatory Prasannagloria Caceres ty:[facility] Start: 06-01-2025 Registered Referred Prasannagloria Parra MD [facility] Start: 05-31-2025 End: 05-31-2025 Emergency department patient visit [facility] Facility[facility] Start: 04-19-2025 ambulatory Prasanna Caceres ty:[facility] Start: 04-19-2025 [facility]istered [facility] [place] Start: 04-14-2025 End: 04-14-2025 ambulatory Tiarra Gross RN [facility] Start: 04-14-2025 End: 04-14-2025 Patient encounter procedure Tiarra Gross RN [facility] Start: 04-07-2025 ambulatory Prasanna Caceres ty:[facility] Start: 04-07-2025 [facility] [place] Start: 03-31-2025 ambulatory Prasanna Caceres ty:[facility] Start: 03-31-2025 Registered [facility] [place] Start: 03-29-2025 ambulatory Prasanna Caceres ty:[facility] Start: 03-29-2025 Registered Ref[facility] [place] Start: 03-21-2025 End: 03-21-2025 Evaluation and management of inpatient Marlon Manuel DO Work Phone: [facility] MAIN OR Start: 03-20-2025 End: 03-24-2025 Evaluation and management of inpatient Jennifer Perry DO Work Phone: [facility] Surgical Progressive Care Unit PCU H6 Comment on above: Closed fracture of l eft hip, initial encounter (HCC) (Primary Dx); Osteoporosis, unspecified osteoporosis type, unspecified pathological fracture presence Start: 03-12-2025 End: 03-15-2025 Evaluation and management of inpatient Anastasia Rodriguez MD Work Phone: 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, with necrosis of muscle (HCC) Start: 03-09-2025 End: 03-09-2025 Subsequent hospital visit by physician Jennifer Waldrop DPM Work Phone: [facility] Care [facility] O[facility] Therapy - [place] Comment on above: Ulcer of right foot with fat layer exposed (HCC) (Primary Dx); Diabetic polyneuropathy associated with type 2 diabetes mellitus (HCC); Pes planus of both feet; 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; Uncontrolled type 2 diabetes mellitus with hyperglycemia (HCC); Charcot's joint of foot, right Start: 03-09-2025 End: 03-09-2025 ambulatory [facility] Start: 03-02-2025 End: 03-02-2025 Subsequent hospital visit by physician Jennifer Waldrop DPM Work Phone: [facility] - [place] Comment on above: Ulcer of right foot with fat layer exposed (HCC) (Primary Dx); Diabetic polyneuropathy associated with type 2 diabetes mellitus (HCC); Pes planus of both feet; 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; Uncontrolled type 2 diabetes mellitus with hyperglycemia (HCC); Charcot's joint of foot, right Start: 03-02-2025 End: 03-02-2025 ambulatory [facility] Start: 02-23-2025 End: 02-23-2025 [facility] Start: 02-23-2025 End: 02-23-2025 Subsequent hospital visit by physician Jennifer Waldrop DPM Work Phone: [facility] Care [facility] - [place] Comment on above: Ulcer of right foot with fat layer exposed (HCC) (Primary Dx); Diabetic polyneuropathy associated with type 2 diabetes mellitus (HCC); Pes planus of both feet; 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; Uncontrolled type 2 diabetes mellitus with hyperglycemia (HCC); Charcot's joint of foot, right Start: 02-08-2025 ambulatory Prasanna Aida Caceres ty:[facility] Start: 01-25-2025 End: 02-02-2025 Evaluation and management of inpatient J Dede Conley MD Work Phone: [facility] Cardiac Progressive Care Unit PCU 5W Comment [...] by physician Jennifer Waldrop DPM Work Phone: [facility] Wound Care [facility] Oxygen Therapy - [...] with hyperglycemia (HCC) Start: 01-12-2025 End: 01-12-2025 [facility] Start: 01-05-2025 End: 01-05-2025 [facility] Start: 01-05-2025 End: 01-05-2025 Subsequent hospital visit by physician Jennifer Waldrop DPM Work Phone: [facility] Care & Hyperbaric Oxygen Therapy - [place] [...] with hyperglycemia (HCC) Start: 12-29-2024 End: 12-29-2024 [facility] Start: 12-29-2024 End: 12-29-2024 Subsequent hospital visit by physician Jennifer Waldrop DPM Work Phone: [facility]xygen Therapy Alin [...] Telephone encounter Priscila Ogden CNP Work Phone: [facility] Start: 12-24-2024 End: 12-24-2024 [facility] Start: 12-24-2024 End: 12-24-2024 Office outpatient visit 25 minutes Priscila Ogden CNP Work Phone: [facility] Comment on above: Type 2 diabetes christina itus with hyperglycemia, with long-term current use of insulin (HCC) (Primary Dx); Essential hypertension; Mixed hyperlipidemia Start: 12-16-2024 End: 12-16-2024 Telephone encounter Dorothy Marcela Work Phone: [facility] Clinical Communication Comment on above: Other Start: 12-11-2024 End: 12-11-2024 [facility] Start: 12-11-2024 End: 12-11-2024 Subsequent hospital visit by physician Nallely Alas DPM Work Phone: [facility] Wound Care & Hyperbar[facility] Oxygen Therapy - [...] Evaluation and management of inpatient León Marie DO Work Phone: 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); Diabetic ulcer of other part of right foot associated with diabetes mellitus due to underlying condition, with necrosis of muscle (HCC) Start: 11-20-2024 End: 11-20-2024 Subsequent hospital visit by physician Nallely Alas DPM Work Phone: [facility] Wound Care [facility] Oxygen Therapy - [...] with hyperglycemia (HCC) Start: 11-20-2024 End: 11-20-2024 ambulatory [facility] Start: 11-13-2024 End: 11-13-2024 ambulatory [facility] Start: 11-13-2024 End: 11-13-2024 Subsequent hospital visit by physician Nallely Alas DPM Work Phone: [facility] - [place] Comment [...] by physician Nallely Alas DPM Work Phone: [facility] Wound Care & [facility] Oxygen Therapy - [...] of muscle (HCC) Start: 11-06-2024 End: 11-06-2024 [facility] Start: 10-29-2024 End: 10-29-2024 Telephone encounter [employer] Work Phone: [facility] Clinical Communication Comment on above: Other Start: 10-16-2024 End: 10-16-2024 [facility] Start: 10-16-2024 End: 10-16-2024 Subsequent hospital visit by physician Nallely Alas DPM Work Phone: [facility] Wound Care & Hyper[facility] Oxygen Therapy - [...] 40 minutes Kraig Wright MD Work Phone: [facility]iors - [place] Comment on above: Memory loss (Primary Dx) Start: 10-15-2024 End: 10-15-2024 ambulatory DOROTHY MEDRANO [facility] Start: 10-09-2024 End: 10-09-2024 Subsequent hospital visit by physician Nallely Alas DPM Work Phone: [facility] Wound Care & Hyper[facility] Oxygen Therapy - [...] Start: 10-09-2024 End: 10-09-2024 ambulatory NALLELY ALAS [facility] Start: 10-02-2024 End: 10-02-2024 Subsequent hospital visit by physician Marielos Blair APRN - PSYCHOLOGIST [employer] Work Phone: [facility] - [place] Comment on above: Diabetic ulcer of ot her part of right foot associated with diabetes mellitus due to underlying condition, with necrosis of muscle (HCC) (Primary Dx) Start: 10-02-2024 End: 10-02-2024 ambulatory LAUREN CASTANON [facility] Start: 09-23-2024 End: 09-25-2024 Telephone encounter Radha Urbina RN [facility] Clinical Communication Comment on above: Appointment Request Start: 09-21-2024 End: 09-24-2024 Telephone encounter Priscila Laguerre APRN - PSYCHOLOGIST [employer] Work Phone: [facility] Endocrinology Мария Comment on above: Hospital Follow-up Start: 09-18-2024 End: 09-24-2024 Evaluation and management of inpatient Janet Niño MD Work Phone: [facility] Medical Surgical Unit MSU 4S Comment on above: Uncontrolled type 2 diabetes mellitus with hyperglycemia (HCC) (Primary Dx); Hyperkalemia; Urinary tract infection without hematuria, site unspecified; Diabetic ulcer of other part of right foot associated with diabetes mellitus due to underlying condition, with necrosis of muscle (HCC) Start: 09-17-2024 End: 09-17-2024 Emergency department patient visit Damian Loza DO Work Phone: [facility] ED Comment on above: Hyperglycemia (Prima ry Dx) Start: 05-22-2024 ambulatory LISY PACE [facility] Locations Start: 03-19-2024 ambulatory LISY PACE [facility] Start: 03-19-2024 End: 03-19-2024 Subsequent hospital visit by physician Nader Ray MD Work Phone: [facility] Comment on above: Wound, open Start: 03-05-2024 [facility] Start: 03-05-2024 End: 03-05-2024 Subsequent hospital visit by physician Nader Ray MD Work Phone: [facility] Comment on above: Wound, open Start: 01-30-2024 [facility] L[facility]Y PACE [facility] Start: 01-30-2024 End: 01-30-2024 Subsequent hospital visit by physician Nader Ray MD Work Phone: [facility] Comment on above: Wound, open Start: 01-23-2024 [facility] LISY PACE [facility] Start: 01-23-2024 End: 01-23-2024 Subsequent hospital visit by physician Nader Ray MD Work Phone: [facility] Comment on above: Wound, open Start: 01-13-2024 End: 01-13-2024 ambulatory LISY PACE Provider Locations Start: 01-09-2024 [facility] NADER RAY [facility] Start: 01-09-2024 End: 01-09-2024 Subsequent hospital visit by physician Nader Ray MD Work Phone: [facility] Comment on above: Wound, open [facility] Start: 12-19-2023 End: 12-19-2023 Subsequent hospital visit by physician Nader Ray MD Work Phone: [facility] Comment on above: Wound, open Start: 12-16-2023 ambulatory LIYS PACE [facility] Start: 12-12-2023 [facility] Start: 12-12-2023 End: 12-12-2023 Subsequent hospital visit by physician Nader Ray MD Work Phone: [facility] Comment on above: Wound, open Start: 12-02-2023 [facility] L[facility]Y [facility] Start: 11-25-2023 [facility] Start: 11-25-2023 End: 11-25-2023 Subsequent hospital visit by physician Nader Ray MD Work Phone: [facility] Comment on above: Wound, open Start: 11-14-2023 [facility] Start: 11-14-2023 End: 11-14-2023 Subsequent hospital visit by physician Nader Ray MD Work Phone: [facility] Comment on above: Wound, open Start: 11-10-2023 End: 11-12-2023 Evaluation and management of inpatient Norberto Rubio MD Work Phone: [facility] Patient Care Unit 1 Comment on above: Cellulitis of right lower leg Start: 10-31-2023 End: 10-31-2023 Subsequent hospital visit by physician Nader Ray MD Work Phone: [facility] Comment on above: Wound, open Start: 10-18-2023 [facility] LISY CONDON [facility] Start: 10-18-2023 End: 10-18-2023 Subsequent hospital visit by physician Lisy Pace MD Work Phone: [facility] Start: 10-18-2023 ambulatory LISY PACE [facility] Start: 10-17-2023 ambulatory NADER RAI [facility] Start: 10-17-2023 End: 10-17-2023 Subsequent hospital visit by physician Nader Ray MD Work Phone: [facility] Comment on above: Wound, open Start: 10-11-2023 [facility] LISY PACE [facility] Start: 10-03-2023 ambulatory NADER RAI [facility] Start: 10-03-2023 End: 10-03-2023 Subsequent hospital visit by physician Nader Ray MD Work Phone: [facility] Comment on above: Wound, open Start: 09-19-2023 [facility] LISY PACE [facility] Start: 09-19-2023 End: 09-19-2023 Subsequent hospital visit by physician Nader Ray MD Work Phone: [facility] Comment on above: Wound, open Start: 09-16-2023 ambulatory LISY PACE [facility] Start: 09-05-2023 ambulatory NADER RAI [facility] Start: 09-05-2023 End: 09-05-2023 Subsequent hospital visit by physician Nader Ray MD Work Phone: [facility] Comment on above: Wound, open Start: 08-22-2023 End: 08-22-2023 Subsequent hospital visit by physician Nader Ray MD Work Phone: [facility] Comment on above: Wound, open Start: 08-22-2023 ambulatory NADER RAI [facility] Start: 08-01-2023 ambulatory [facility] Start: 08-01-2023 End: 08-01-2023 Subsequent hospital visit by physician Nader Ray MD Work Phone: [facility] Comment on above: Wound, open Start: [facility] Start: 07-25-2023 End: 07-25-2023 Subsequent hospital visit by physician Nader Ray MD Work Phone: [facility] Comment on above: Wound, open Start: 07-11-2023 [facility] Start: 07-11-2023 End: 07-11-2023 Subsequent hospital visit by physician Nader Ray MD Work Phone: [facility] Comment on above: Wound, open Start: 06-20-2023 [facility] Start: 06-20-2023 End: 06-20-2023 Subsequent hospital visit by physician Nader Ray MD Work Phone: [facility] Comment on above: Wound, open Start: [facility] Start: 06-06-2023 End: 06-06-2023 Subsequent hospital visit by physician Nader Ray MD Work Phone: [facility] Comment on above: Wound, open Start: 05-31-2023 End: 05-31-2023 ambulatory RADHA DE LEON Provider Locations Start: [facility] Start: 05-23-2023 End: 05-23-2023 Subsequent hospital visit by physician Nader Ray MD Work Phone: [facility] Comment on above: Wound, open Start: 05-06-2023 ambulatory ESTIVEN MCFADDEN [facility] Start: 05-06-2023 End: 05-06-2023 Subsequent hospital visit by physician Estiven AVALOS Work Phone: [facility] Comment on above: Wound, open Start: 05-06-2023 End: 05-06-2023 [facility] Start: 05-06-2023 End: 05-06-2023 Subsequent hospital visit by physician Nader Ray MD Work Phone: [facility] Comment on above: Wound, open Start: 04-18-2023 End: 04-18-2023 ambulatory LISYDARION CONDON [facility] Start: 04-18-2023 End: 04-18-2023 Subsequent hospital visit by physician Nader Ray MD Work Phone: [facility] Comment on above: Wound, open Start: 04-04-2023 ambulatory [facility] Start: 04-04-2023 End: 04-04-2023 Subsequent hospital visit by physician Nader Ray MD Work Phone: [facility] Comment on above: Wound, open Start: 03-21-2023 End: 03-21-2023 Subsequent hospital visit by physician Nader Ray MD Work Phone: [facility] Comment on above: Wound, open Start: 03-07-2023 End: 03-07-2023 Subsequent hospital visit by physician Nader Ray MD Work Phone: [facility] Comment on above: Wound, open Start: 02-01-2022 End: 02-01-2022 Subsequent hospital visit by physician Estiven Mcfadden DPM Work Phone: [facility] Comment on above: Wound, open Start: 01-18-2022 End: 01-18-2022 Subsequent hospital visit by physician Lisy Pace MD Work Phone: [facility] Start: 01-11-2022 End: 01-11-2022 Subsequent hospital visit by physician Estiven Mcfadden DPM Work Phone: [facility] Comment on above: Wound, open Start: 12-28-2021 End: 12-28-2021 Subsequent hospital visit by physician Estiven Mcfadden DPM Work Phone: [facility] Comment on above: Wound, open Start: 12-14-2021 End: 12-14-2021 Subsequent hospital visit by physician Estiven Mcfadden DPM Work Phone: [facility] Comment on above: Wound, open Start: 12-12-2021 End: 12-12-2021 Subsequent hospital visit by physician Estiven Mcfadden DPM Work Phone: [facility] Comment on above: Wound, open Start: 11-23-2021 End: 11-23-2021 Subsequent hospital visit by physician Estiven Mcfadden DPM Work Phone: [facility] Comment on above: Wound, open Start: 11-09-2021 End: 11-09-2021 Subsequent hospital visit by physician Estiven Mcfadden DPM Work Phone: [facility] Comment on above: Wound, open Start: 11-09-2021 End: 11-09-2021 Subsequent hospital visit by physician Ashlie Cardenas MD Work Phone: [facility] Comment on above: Wound, open Start: 10-26-2021 End: 10-26-2021 Subsequent hospital visit by physician Nader Ray MD Work Phone: [facility] Comment on above: Wound, open Start: 10-05-2021 End: 10-05-2021 Subsequent hospital visit by physician Nader Ray MD Work Phone: [facility] Comment on above: Wound, open Start: 09-21-2021 End: 09-21-2021 Subsequent hospital visit by physician Nader Ray MD Work Phone: [facility] Comment on above: Wound, open Start: 08-31-2021 End: 08-31-2021 Subsequent hospital visit by physician Nader Ray MD Work Phone: [facility] Comment on above: Wound, open Start: 08-17-2021 End: 08-17-2021 Subsequent hospital visit by physician Nader Ray MD Work Phone: [facility] Comment on above: Wound, open Start: 08-03-2021 End: 08-03-2021 Subsequent hospital visit by physician Nader Ray MD Work Phone: [facility] Comment on above: Wound, open Start: 07-20-2021 End: 07-20-2021 Subsequent hospital visit by physician Ashlie Cardenas MD Work Phone: [facility] Comment on above: Wound, open Start: 07-13-2021 End: 07-13-2021 Subsequent hospital visit by physician Nader Ray MD Work Phone: [facility] Comment on above: Wound, open Start: 06-29-2021 End: 06-29-2021 Subsequent hospital visit by physician Nader Ray MD Work Phone: [facility] Comment on above: Wound, open Start: 06-22-2021 End: 06-22-2021 Subsequent hospital visit by physician Nader Ray MD Work Phone: [facility] Comment on above: Wound, open Start: 03-31-2021 End: 03-31-2021 Subsequent hospital visit by physician Nader Ray MD Work Phone: [facility] Comment on above: Wound, open Start: 03-24-2021 End: 03-24-2021 Subsequent hospital visit by physician Nader Ray MD Work Phone: [facility] Comment on above: Wound, open Start: 03-17-2021 End: 03-17-2021 Subsequent hospital visit by physician Nader Ray MD Work Phone: [facility] Comment on above: Wound, open Start: 01-26-2021 Patient encounter procedure Nic Temple MD Work Phone: [facility] Start: 01-26-2021 Progress Note Nic cortez MD Work Phone: [facility] Start: 01-18-2021 Patient encounter procedure Nic Temple MD Work Phone: [facility] Start: 01-18-2021 Progress Note Nic cortez MD Work Phone: [facility] Start: 10-28-2020 End: 10-28-2020 Subsequent hospital visit by physician Nader Ray Work Phone: [facility] Comment on above: Wound, open Start: 10-15-2020 End: 10-21-2020 Evaluation and management of inpatient Antwan Rebolledo Work Phone: [facility] Patient Care Unit 4 Comment on above: Cellulitis Start: 10-14-2020 End: 10-14-2020 Subsequent hospital visit by physician Nader Ray Work Phone: [facility] Comment on above: Wound, open Start: 10-04-2020 End: 10-04-2020 Subsequent hospital visit by physician Brian Wilson Work Phone: [facility] Nuclear Medicine Start: 04-07-2020 End: 04-07-2020 Subsequent hospital visit by physician Nader Ray Work Phone: [facility] Comment on above: Open wound Start: 03-31-2020 End: 03-31-2020 Subsequent hospital visit by physician Nader Ray Work Phone: [facility] Comment on above: Open wound Procedures Date Procedure Procedure Detail Performing Clinician Start: 06-04-2025 Urnls dip stick/tabl et reagent auto microscopy Dr. Spenser Grande MD Work Phone: Start: 05-31-[address] Spenser Grande MD Work Phone: Start: 04-07-[address] detection [address] Spenser Grande MD Work Phone: Start: 03-31-[address] Spenser ocasio MD Work Phone: Start: 03-31-2025 Urnls dip stick/tabl et reagent auto microscopy Dr. Spenser Grande MD Work Phone: Start: 03-24-2025 Glucose quantitative [...] Compatibility each u nit electronic Sergio Lutz [employer] Work Phone: Start: 03-22-2025 End: 03-22-2025 TRANSFUSE RED BLOOD CELLS Sergio Lutz [employer] Work Phone: Start: 03-22-2025 Comprehensive metabo lic [...] 03-21-2025 End: 03-21-2025 Blood count hematocrit Marlon Manuel DO Work Phone: Start: 03-21-2025 Radiologic examinati on femur minimum 2 views Golden Collado MD Work Phone: Start: 03-21-2025 FL GUIDANCE OR USE O NLY - NON-RESULTABLE Willi Sullivan MD Work Phone: Start: 03-21-2025 [place] AN EMERGENT ENDOT [employer] Yordan Gannon LAPIDARIST - SURFACE PLATE INSPECTOR Work Phone: Start: 03-21-2025 End: 03-21-2025 Tx inter/pr/subtrchntric fem fx imed impltscrew Willi Sullivan MD Work Phone: Start: 03-21-2025 End: 03-21-2025 Comprehensive metabolic panel Miguel Hui DO Work Phone: Start: 03-21-2025 Manual Differential panel - Blood Janet Garciaire DO Work Phone: Start: 03-20-2025 Assay of troponin quantitative Janet Rosemarie DO Work Phone: Start: 03-20-2025 Antibody screen DOROTHY MEDRANO Comment on above: Performed By: #### L [id number] ####Escort Vehicle Driver: BROOKE RINCON ([phone])[facility] ([facility])[address] [place] [address] Start: 03-20-2025 Blood gases any comb ination [...] Start: 03-20-2025 US scan of abdominal aorta Jennifer Perry DO Work Phone: Start: 03-20-2025 Urnls [...] 02-23-2025 Adult depression scr eening assessment Jennifer Waldrop DPM Work Phone: Start: 02-02-2025 Glucose quantitative blood xcpt reagent strip Roxy Aguilar MD Work Phone: Start: 02-02-2025 Glucose quantitative blood xcpt reagent strip Roxy Aguilar MD Work Phone: Start: 02-02-2025 Basic [...] metabolic pane l calcium total Suha Ruiz LAPIDARIST - PSYCHOLOGIST [employer]IVATE [employer]ACTICE Work Phone: Start: 01-27-2025 Glucose quantitative blood [...] metabolic pane l calcium total Tiarra C Rizzardi LAPIDARIST - PSYCHOLOGIST [employer] Work Phone: Start: 01-27-2025 Drug screen quantita tive vancomycin Ramiro Crawford MD Work Phone: Start: 01-26-2025 AEROBIC AND ANAEROBI C CULTURE WITH STAIN Prachi Victoria MD Work Phone: Start: 01-26-2025 Culture bacterial an y source anaerobic iso&id Prachi Victoria MD Work Phone: Start: 01-26-2025 Antibody screen DOROTHY FELICIANOON Comment on above: Performed By: #### L [id number] ####Escort Vehicle Driver: BROOKE RINCON ([phone])[facility] ([facility])[address] [place] [address] Start: 01-26-2025 ABO and Rh group [Ty [...] 01-26-2025 Sedimentation rate r bc automated Tiarra C Rizzardi LAPIDARIST - PSYCHOLOGIST [employer]ACTICE Work Phone: Start: 01-26-2025 Culture bacterial quanttative colony count urine Tiarra C Rizzardi LAPIDARIST - PSYCHOLOGIST [employer]ICE Work Phone: Start: 01-26-2025 Dup-scan xtr veins c omplete bilateral study Tiarra C Rizzardi LAPIDARIST - PSYCHOLOGIST [employer]IVATE [employer]ACTICE Work Phone: Start: 01-26-2025 End: 01-26-2025 Comprehensive metabolic panel Tiarra C Rizzardi LAPIDARIST - PSYCHOLOGIST [employer]IVATE [employer]ACTICE Work Phone: Start: 01-26-2025 AEROBIC AND ANAEROBI C CULTURE WITH STAIN Tiarra C Rizzardi LAPIDARIST - PSYCHOLOGIST [employer]IVATE [employer]ACTICE Work Phone: Start: 01-26-2025 Culture bacterial an y source anaerobic iso&id Tiarra C Rizzardi LAPIDARIST - PSYCHOLOGIST [employer]IVATE [employer]ACTICE Work Phone: Start: 01-26-2025 Assay of troponin quantitative J Dede Conley MD Work Phone: Start: 01-26-2025 C-reactive protein Rc le Isaiah Ruelas LAPIDARIST - PSYCHOLOGIST [employer]IVATE [employer]ICE Work Phone: Start: 01-26-2025 SARS-COV-2, FLU A/B, AND RSV COMBO Sanjuanita Conley MD Work Phone: Start: 01-26-2025 End: 01-26-2025 Assay of troponin quantitative Sanjuanita Conley MD Work Phone: Start: 01-26-2025 End: 01-26-2025 Bacteria identified in Blood by Culture Sanjuanita Conley MD Work Phone: Start: 01-26-2025 Radiologic [...] DO Work Phone: Start: 12-02-2024 C-reactive protein Tboy Cooper MD Work Phone: Start: 12-02-2024 Comprehensive metabo lic panel León G Nesheim DO Work Phone: Start: 11-27-2024 Debridement subcutan eous tissue 20 sq cm/< Marielos Blair LAPIDARIST - PSYCHOLOGIST [employer]IVATE PRACTICE Work Phone: Start: 10-16-2024 Debridement subcutan eous tissue 20 sq cm/< Nallely Alas DPM Work Phone: Start: 10-15-2024 Follow-up visit DOROTHY MEDRANO Start: 10-15-2024 Adult depression scr eening assessment Kraig Wright MD Work Phone: Start: 10-02-2024 Debridement subcutan eous tissue 20 sq cm/< Marielos Blair LAPIDARIST - PSYCHOLOGIST [employer]IVATE [employer]ACTICE Work Phone: Start: 09-24-2024 Glucose quantitative blood xcpt reagent strip Herman Pepper DO Work Phone: Start: 09-24-2024 Glucose quantitative blood xcpt reagent strip Herman Pepper DO Work Phone: Start: 09-24-2024 Basic metabolic pane l calcium total Herman Pepper DO Work Phone: Start: 09-23-2024 Glucose quantitative blood xcpt reagent strip Herman Pepper DO Work Phone: Start: 09-23-2024 Glucose quantitative blood xcpt reagent strip Herman Masongt DO Work Phone: Start: 09-23-2024 Glucose quantitative blood xcpt reagent strip Herman Masongt DO Work Phone: Start: 09-23-2024 End: 09-23-2024 Basic metabolic panel calcium total Herman Pepper DO Work Phone: Start: 09-22-2024 Glucose quantitative blood xcpt reagent strip Herman Pepper DO Work Phone: Start: 09-22-2024 Glucose quantitative blood xcpt reagent strip Herman Pepper DO Work Phone: Start: 09-22-2024 Glucose quantitative blood xcpt reagent strip Herman Pepper DO Work Phone: Start: 09-22-2024 Glucose quantitative blood xcpt reagent strip Herman Pepper DO Work Phone: Start: 09-22-2024 End: 09-22-2024 [...] 09-17-2024 Basic metabolic pane l calcium total Mebethn Geoffrey Denia DO Work Phone: Start: 09-17-2024 Glucose quantitative blood xcpt reagent strip Mejgon Z Denia DO Work Phone: Start: 09-17-2024 POCT GLUCOSE METER UNSOLICITED RESULTS Mejgon Z Denia DO Work Phone: Start: 09-17-2024 Basic metabolic pane l calcium total Mejgon Z Denia DO Work Phone: Start: 09-17-2024 POCT GLUCOSE METER UNSOLICITED RESULTS Mesanjuanitagon Geoffrey Denia DO Work Phone: Start: 11-12-2023 Glucose [Mass/volume ] in Serum or Plasma Norberto Rubio MD Work Phone: Start: 11-12-2023 Glucose [Mass/volume ] in Serum or Plasma Norberto Rubio MD Work Phone: Start: 11-12-2023 End: 11-12-2023 Blood count complete automated Jalil Blanton MD Work Phone: Start: 11-12-2023 Glucose [...] Work Phone: Start: 06-22-2021 Specimen collection Ayse Ray MD Work Phone: Start: 06-22-2021 BKR CULTURE, WOUND Mick n Bobo LAUREN-C Work Phone: Start: 06-22-2021 CULTURE, WOUND Tiffany Bobo Mcneal PA-C Work Phone: Start: 06-22-2021 CX WOUND COLLECTION Tita LAUREN-C Work Phone: Start: 10-21-2020 ACCUCHECK GLUCOSE Calvi [...] Work Phone: Start: 10-17-2020 MRSA BY PCR Rayhozbigniew Quick Work Phone: Start: 10-17-2020 ACCUCHECK GLUCOSE Calvi n P Amaury Work Phone: Start: 10-17-2020 Basic metabolic 2000 panel Bullgloriazbigniew Prattdave Work Phone: Start: 10-17-2020 ACCUCHECK GLUCOSE Calvi n P Amaury Work Phone: Start: 10-17-2020 OSMOLALITY, URINE Bull alvin Abdelrahman Work Phone: Start: 10-17-2020 SODIUM, URINE RANDOM Ray Quick Work Phone: Start: 10-17-2020 ACCUCHECK GLUCOSE [...] Work Phone: Start: 10-16-2020 Standard ECG Milvia June fuchs Work Phone: Start: 10-16-2020 Microscopic examinat ion of blood, culture Milvia June [place] Work Phone: Start: 10-16-2020 Radiologic examinati on tibia & fibula 2 views Milvia June [place] Work Phone: Start: 10-16-2020 Ct lower extremity w /o contrast material Milviasamuel [place] Work Phone: Start: 10-16-2020 Ct cervical spine w/ o contrast material Milvia June [place] Work Phone: Start: 10-15-2020 Ct head/brain w/o co ntrast material Milvia June [place] Work Phone: Start: 10-15-2020 Lactate [Moles/Vol] Huong Watkins [place] Work Phone: Start: 10-15-2020 Basic metabolic 2000 panel Milvia June [place] Work Phone: Start: 10-15-2020 COMPLETE BLOOD COUNT WITH DIFFERENTIAL Milvia June [place] Work Phone: Start: 10-15-2020 EMS RUN SHEET [facility] Work Phone (unformatted): [phone] Start: 10-14-2020 Microscopic examinat ion of blood, culture Milvia June [place] Work Phone: Start: 10-04-2020 Myocardial spect mul tiple studies Brian Wilson Work Phone: Start: 10-04-2020 Cv strs tst xers&/or rx cont ecg trcg only Brian Yenni Wilson Work Phone: Plan of Treatment Date Care Activity Detail Author Start: 06-30-2027 TETANUS VACCINE 11+ TETANUS VACCINE 11+ [facility] Start: 12-15-2026 DIABETES SCREENING DIABETES SCREENIN G [facility] Start: 11-11-2026 DIABETES SCREENING DIABETES SCREENIN G [facility] Start: 09-16-2026 DIABETES SCREENING DIABETES SCREENIN G [facility] Start: 09-02-2026 DIABETES SCREENING DIABETES SCREENIN [facility] Start: 03-24-2026 Diabetes: Estimated Glomerular Filtration Rate for Kidney Health Diabetes: Estimated Glomerular Filtration Rate for Kidney Health [facility] Start: 03-21-2026 Diabetes: Estimated Glomerular Filtration Rate for Kidney Health Diabetes: Estimated Glomerular Filtration Rate for Kidney Health [facility] Start: 03-15-2026 Diabetes: Estimated Glomerular Filtration Rate for Kidney Health Diabetes: Estimated Glomerular Filtration Rate for Kidney Health [facility] Start: 03-14-2026 Thyroid stimulating hormone measurement TSH Level [facility] Start: 02-23-2026 Depression Screening Depression Scre ening [facility] Start: 02-02-2026 Diabetes: Estimated Glomerular Filtration Rate for Kidney Health Diabetes: Estimated Glomerular Filtration Rate for Where I've Been Health [facility] Start: 01-31-2026 Diabetes: Estimated Glomerular Filtration Rate for Kidney Health Diabetes: Estimated Glomerular Filtration Rate for Where I've Been Health [facility] Start: 01-25-2026 DIABETES SCREENING [facility] Start: 01-25-2026 Thyroid stimulating hormone measurement TSH Level [facility] Start: 12-05-2025 Diabetes: Estimated Glomerular Filtration Rate for Where I've Been Health Diabetes: Estimated Glomerular Filtration Rate for Where I've Been Health [facility] Start: 10-15-2025 Depression Screening Depression Scre ing [facility] Start: 09-24-2025 Diabetes: Estimated Glomerular Filtration Rate for Kidney Health Diabetes: Estimated Glomerular Filtration Rate for Kidney Health [facility] Start: 09-21-2025 Thyroid stimulating hormone measurement TSH Level [facility] Start: 06-07-2025 Registered Referred Registered Refer [facility] Start: 06-04-2025 Urine culture Urine Culture [facility] Start: 06-04-2025 Registered Referred Registered Refer [facility] Start: 05-31-2025 [facility] Start: 05-10-2025 End: 05-10-2025 Patient encounter procedure 05/10/2025 11:00 AM EDT Office Visit [facility] Endocrinology - [address] [phone] Priscila Laguerre, LAPIDARIST - PSYCHOLOGIST [employer]IVATE [employer]ACTICE [address] [place], [place] [id number] [facility] Start: 04-12-2025 COVID-19 Vaccine ( season) COVID-19 Vaccine ( season) [facility] Start: 04-12-2025 Influenza vaccination S [facility] Start: 04-07-2025 End: 04-07-2025 Patient encounter procedure 04/07/2025 11:00 AM EDT Office Visit [facility] Orthopedics formerly [facility] Sports Medicine [facility] [address] [facility] [address] [place] [phone] Leah Kaminski PA-C [address] [place] [address] [facility] Start: 03-30-2025 End: 03-30-2025 Patient encounter procedure 03/30/2025 1:30 PM EDT Office Visit [facility] Cardiology [facility] [address] [place] [phone] Zoe Mclean, LAPIDARIST - PSYCHOLOGIST PRIVATE PRACTICE [address] [place] [address] [facility] Start: 03-23-2025 End: 03-23-2025 Patient encounter procedure 03/23/2025 10:15 AM EDT Appointment [facility] Wound Care & Hyper[facility] [place] [address] Jennifer Waldrop DPM [address] [place] [address] [facility] Therapy - [place] Start: 03-16-2025 End: 03-16-2025 Patient encounter procedure 03/16/2025 10:15 AM EDT Appointment [facility] Wound Care & [facility] Oxygen Therapy - [place] [address] [place] [address] Jennifer Waldrop DPM [address] [place] [address] [facility] - [place] Start: 03-09-2025 End: 03-09-2025 Patient encounter procedure 03/09/2025 10:15 AM EDT Appointment [facility] Wound Care & [facility] Oxygen Therapy - [place] [address] [place] [address] Jennifer Waldrop DPM [address] [place] [address] [facility] - [place] Start: 03-02-2025 End: 03-02-2025 Patient encounter procedure 03/02/2025 10:15 AM EDT Appointment [facility] Wound Care & [facility] Oxygen Therapy - [place] [address] [place] [address] Jennifer Waldrop DPM [address] [place] [address] [facility] Wound Care [facility] Therapy - [place] Start: 02-19-2025 End: 02-19-2025 Patient encounter procedure 02/19/2025 1:00 PM EDT Office Visit [facility] Cardiology [facility] [address] [place] [phone] Zoe Mclean, LAPIDARIST - PSYCHOLOGIST [employer]IVATE [employer]ACTICE [address] [place] [address] [facility] Start: 01-29-2025 End: 01-29-2025 Patient encounter procedure 01/29/2025 11:00 AM EDT Office Visit [facility] [address] [address] Sandi Hernandez, DO [address] [place] [address] [facility] Start: 01-26-2025 End: 01-26-2025 Patient encounter procedure 01/26/2025 9:45 AM EDT Appointment [facility] Wound Care & Hyperbaric Oxygen Therapy [place] [address] Jennifer Waldrop DPM [address] [place] [address] [facility] - [place] Start: 01-12-2025 End: 01-12-2025 Patient encounter procedure 01/12/2025 9:45 AM EDT Appointment [facility] Wound Care & Hyperbar[facility] Oxygen Therapy [place] [address] Jennifer Waldrop DPM [address] [place] [address] [facility] Therapy - [place] Start: 01-07-2025 End: 01-07-2025 Patient encounter procedure 01/07/2025 1:00 PM EDT Office [facility] [place] [phone] Kraig Wright MD [address] [phone] [facility] - [place] Start: 01-06-2025 End: 01-06-2025 Patient encounter procedure 01/06/2025 9:40 AM EDT Office Visit [facility] Cardiology - [place] [address] [place] [phone] Yohannes Britton MD [address] [place], [place] [phone] [facility] Cardiology - [place] Start: 01-05-2025 End: 01-05-2025 Patient encounter procedure 01/05/2025 9:45 AM EDT Appointment [facility] Wound Care & Hyperbaric Oxygen Therapy - [address] [place] [address] Jennifer Waldrop DPM [address] [place] [address] [facility] Wound Care [facility]xygen Therapy - [place] Start: 01-02-2025 DIABETES SCREENING DIABETES SCREENIN [facility] Start: 12-29-2024 End: 12-29-2024 Patient encounter procedure 12/29/2024 10:15 AM EDT Appointment [facility] Wound Care & [facility] Oxygen Therapy - [place] [address] [place] [address] Jennifer Waldrop DPM [address] [place] [address] [facility] W[facility] Care [facility] - [place] Start: 12-25-2024 End: 12-25-2024 Patient encounter procedure 12/25/2024 12:45 PM EDT Appointment [facility] Wound Care & [facility] Oxygen Therapy - [place] [address] [place] [address] Nallely Alas, VIPUL [address] [facility] [place] [address] [address] [facility] Wound Care [facility] Therapy - [place] Start: 12-24-2024 End: 12-24-2025 Lipid 1996 panel - Serum or Plasma Lipid panel Lab Routine Mixed hyperlipidemia Expected: 12/24/2024 (Approximate), Expires: 12/24/2025 [facility] Comment on above: Expected: 12/24/2024 (Approximate), Expires: 12/24/2025 Start: 12-24-2024 End: 12-24-2025 Microalbumin/Creatinin e panel in random Urine Microalbumin / creatinine urine ratio Lab Routine Type 2 diabetes mellitus with hyperglycemia, with long-term current use of insulin (HCC) Expected: 12/24/2024 (Approximate), Expires: 12/24/2025 [facility] Work Phone: Comment on above: Expected: 12/24/2024 (Approximate), Expires: 12/24/2025 Start: 12-24-2024 End: 12-24-2024 Patient encounter procedure 12/24/2024 9:30 AM EDT Office Visit [facility] [address] [facility] [address] [place] [phone] Priscila Laguerre, LAPIDARIST - [facility] [address] [place] [address] [facility] Start: 12-18-2024 End: 12-18-2024 Patient encounter procedure 12/18/2024 12:45 PM EDT Appointment [facility] Wound Care & Hyperbaric Oxygen Therapy - [address] [place] [address] Aditi Tan, VIPUL [address] [place] [address] [facility] Wound Care [facility]xygen Therapy - [place] Start: 12-11-2024 End: 12-11-2024 Patient encounter procedure 12/11/2024 12:45 PM EDT Appointment [facility] Wound Care & Hyperbaric Oxygen Therapy - [place] [address] Nallely Alas, DPM [address] [place] [address] [facility] Wound Care & [facility] Oxygen Therapy - [place] Start: 12-04-2024 End: 12-04-2024 Patient encounter procedure 12/04/2024 12:45 PM EDT Appointment [facility] Wound Care & Hyperbaric Oxygen Therapy [place] [address] Nallely Alas, DPM [address] [place] [address] [facility] Wound Care [facility] Oxygen Therapy - [place] Start: 11-29-2024 DIABETES SCREENING DIABETES SCREENIN G [facility] Start: 11-27-2024 End: 11-27-2024 Patient encounter procedure 11/27/2024 8:45 AM EDT Appointment [facility] Wound Care & Hyperbaric Oxygen Therapy - [address] [place] [address] Marielos Blair, LAPIDARIST - PSYCHOLOGIST [employer] [address] [place] [address] [facility] Wound Care [facility]xygen Therapy - [place] Start: 11-20-2024 End: 11-20-2024 Patient encounter procedure 11/20/2024 12:45 PM EDT Appointment [facility] Wound Care & Hyperbaric Oxygen Therapy - [place] [address] Nallely Alas, DPM [address] [place] [address] [facility] Wound Care & [facility] Oxygen Therapy - [place] Start: 11-13-2024 End: 11-13-2024 Patient encounter procedure 11/13/2024 1:15 PM EDT Appointment [facility] Wound Care & Hyperbaric Oxygen Therapy - [place] [address] Nallely Alas, DPM [address] [place] [address] [facility] Wound Care & [facility] Oxygen Therapy - [place] Start: 11-11-2024 Diabetes: KED eGFR (Estimated Glomerular Filtration Rate) Diabetes: KED eGFR (Estimated Glomerular Filtration Rate) [facility] Start: 11-09-2024 End: 11-09-2024 Patient encounter procedure 11/09/2024 9:30 AM EDT Office Visit [facility] [address] [facility] [place] [phone] Parisa Chance MD [address] [facility] [place] [address] [facility] Start: 11-06-2024 End: 11-06-2024 Patient encounter procedure 11/06/2024 12:45 PM EDT Appointment [facility] Care & Hyperbaric Oxygen Therapy - [place] [address] Nallely Alas, DPM [address] [place] [address] [facility] Care & Hyperbaric Oxygen Therapy - [place] Start: 10-30-2024 End: 10-30-2024 Patient encounter procedure 10/30/2024 2:00 PM EDT Appointment [facility] Care & Hyperbaric Oxygen Therapy - [place] [address] [place] [address] Nallely Alas, DPM [address] [place] [place] [address] [facility] Care & Hyperbaric Oxygen Therapy - [place] Start: 10-16-2024 End: 10-16-2024 Patient encounter procedure 10/16/2024 12:45 PM EST Appointment [facility] Wound Care & Hyperbaric Oxygen Therapy - [place] [address] [place] [address] Nallely Alas, DPM [address] [place] [place] [address] [facility] Care & Hyperbaric Oxygen Therapy - [place] Start: 10-15-2024 End: 10-15-2025 MR Brain WO contrast MR brain wo contrast Imaging Routine Memory loss Expected: 10/15/2024, Expires: 10/15/2025 [facility] Work Phone: Comment on above: Expected: 10/15/2024 , Expires: 10/15/2025 Start: 10-13-2024 DIABETES SCREENING DIABETES SCREENIN G [facility] Start: 10-09-2024 End: 10-09-2024 Patient encounter procedure 10/09/2024 12:45 PM EST Appointment [facility] Wound Care & Hyperbaric Oxygen Therapy - [place] [address] [place] [address] Nallely Alas, DPM [address] [place] [address] [facility] Wound Care & [facility] Oxygen Therapy - [place] Start: 10-02-2024 End: 10-02-2024 Patient encounter procedure 10/02/2024 9:15 AM EST Appointment [facility] Wound Care & [facility] Oxygen Therapy - [place] [address] [place] [address] Marielos Blair, LAPIDARIST - PSYCHOLOGIST [employer] [address] [place] [address] [facility] Wound Care & [facility] Oxygen Therapy - [place] Start: 09-12-2024 Diabetes: KED eGFR (Estimated Glomerular Filtration Rate) Diabetes: KED eGFR (Estimated Glomerular Filtration Rate) [facility] Start: 08-03-2024 DIABETES SCREENING DIABETES SCREENIN G [facility] Start: 06-09-2024 DIABETES SCREENING DIABETES SCREENIN G [facility] Start: 04-12-2024 COVID-19 Vaccine ( season) COVID-19 Vaccine ( season) [facility] Start: 04-12-2024 COVID-19 Vaccine ( season) COVID-19 Vaccine ( season) [facility] Start: 04-12-2024 Influenza vaccination Influenza Vacc ine (#1) [facility] Start: 03-19-2024 End: 03-19-2024 Patient encounter procedure 03/19/2024 1:30 PM EDT Appointment [facility] [address] [place] [address] Nader Ray MD [address] [address] Estiven Mcfadden DPM [address] [place] [address] [facility] Start: 03-17-2024 End: 03-17-2024 Patient encounter procedure 03/17/2024 1:45 PM EDT Office Visit [facility] [address] [place] [address] Lisy Pace MD [address] [place] [address] [facility] Start: 03-12-2024 Hemoglobin A1c measurement Hemoglobin A1C [facility] Start: 03-12-2024 Hemoglobin A1c/Hemoglobin.total in Blood HEMOGLOBIN A1C [facility] Start: 03-12-2024 Refusal of treatment by patient [facility] Start: 02-27-2024 End: 02-27-2024 Patient encounter procedure 02/27/2024 1:45 PM EDT Appointment [facility] [address] [address] Nader Ray MD [address] [address] Estiven Mcfadden DPM [address] [place] [address] [facility] Start: 02-15-2024 DIABETES SCREENING DIABETES SCREENIN G [facility] Start: 01-30-2024 End: 01-30-2024 Patient encounter procedure 01/30/2024 1:45 PM EDT Appointment [facility] [address] [address] Nader Ray MD [address] [place] [address] Estiven Mcfadden DPM [address] [place] [address] [facility] [facility] Start: 01-23-2024 End: 01-23-2024 Patient encounter procedure 01/23/2024 1:30 PM EDT Appointment [facility] [address] [facility] [address] [place] [address] Nader Ray MD [address] [address] Estiven Mcfadden DPM [address] [place] [address] [facility] Start: 01-17-2024 End: 01-17-2024 Patient encounter procedure 01/17/2024 9:15 AM EDT Office Visit [address] [place] [address] Sandi Hernandez, DO [address] [place] [address] [facility] Start: 01-13-2024 End: 01-13-2024 Patient encounter procedure 01/13/2024 2:30 PM EDT Office Visit [address] [place] [address] Sandi Hernandez, DO [address] [place] [address] [facility] Start: 01-12-2024 Diabetes: KED eGFR (Estimated Glomerular Filtration Rate) Diabetes: KED eGFR (Estimated Glomerular Filtration Rate) [facility] Start: 01-10-2024 End: 01-10-2024 Patient encounter procedure 01/10/2024 9:15 AM EDT Office Visit [facility] [address] [place] [address] Sandi Hernandez, DO [address] [place] [address] [facility] Start: 01-09-2024 End: 01-09-2024 Patient encounter procedure 01/09/2024 1:30 PM EDT Appointment [facility] [address] [address] Nader Ray MD [address] [address] Estiven Mcfadden DPM [address] [place] [address] [facility] Start: 12-19-2023 End: 12-19-2023 Patient encounter procedure 12/19/2023 12:30 PM EDT Appointment [facility] [address] [address] Nader Ray MD [address] [address] Estiven Mcfadden DPM [address] [place] [address] [facility] Start: 12-16-2023 End: 12-16-2023 Patient encounter procedure 12/16/2023 11:15 AM EDT Office Visit [facility] [address] [place] [address] Lisy Pace MD [address] [place] [address] [facility] Start: 12-12-2023 End: 12-12-2023 Patient encounter procedure 12/12/2023 2:15 PM EDT Appointment [facility] [address] [facility] [address] [place] [address] Nader Ray MD [address] [address] Estiven Mcfadden DPM [address] [place] [address] [facility] Start: 11-25-2023 End: 11-25-2023 Patient encounter procedure 11/25/2023 2:45 PM EDT Appointment [facility] [address] [facility] [address] [place] [address] Nader Ray MD [address] [address] Estiven Mcfadden DPM [address] [place] [address] [facility] Start: 11-14-2023 End: 11-14-2023 Patient encounter procedure 11/14/2023 1:30 PM EDT Appointment [facility] [address] [address] Nader Ray MD [address] [address] Estiven Mcfadden DPM [address] [place] [address] [facility] Start: 11-14-2023 Subsequent hospital visit by physician 11/14/2023 1:30 PM EDT Hospital Encounter [facility] [address] [facility] [address] [place] [address] Naedr Ray MD [address] [place] [address] Estiven Mcfadden DPM [address] [place] [address] Wound, open [facility] Comment on above: Wound, open Start: 11-08-2023 End: 11-08-2023 ambulatory 11/08/2023 11:30 AM EDT PT Regular Visit [facility] [address] [facility] [address] [place] [address] Lisy Pace MD [address] [place] [address] John Rolon PTA [facility] Start: 11-01-2023 End: 11-01-2023 ambulatory 11/01/2023 11:30 AM EDT PT Regular Visit [facility] [address] [facility] [address] [place] [address] Lisy Pace MD [address] [place] [address] John Rolon PTA [facility] Start: 10-31-2023 End: 10-31-2023 Patient encounter procedure 10/31/2023 1:30 PM EDT Appointment [facility] [address] [facility] [address] [place] [address] Nader Ray MD [address] [facility] [address] [place] [address] Estiven Mcfadden DPM [address] [place] [address] [facility] Start: 10-25-2023 End: 10-25-2023 ambulatory 10/25/2023 9:30 AM EDT PT Regular Visit [facility] [address] [facility] [address] [place] [address] Lisy Pace MD [address] [place] [address] John Rolon PTA [facility] Start: 10-22-2023 DIABETES SCREENING DIABETES SCREENIN G [facility] Start: 10-18-2023 End: 10-18-2023 Patient encounter procedure 10/18/2023 10:45 AM EST Office Visit [facility] [address] [place] [address] Lisy Pace MD [address] [place] [address] [facility] Start: 10-18-2023 End: 10-18-2023 ambulatory 10/18/2023 9:30 AM EST PT Regular Visit [facility] [address] [place] [address] Lisy Pace MD [address] [place] [address] Jimmie Funes, PT [facility] Start: 10-17-2023 DIABETES SCREENING DIABETES SCREENIN G [facility] Start: 10-17-2023 End: 10-17-2023 Patient encounter procedure 10/17/2023 1:30 PM EST Appointment [facility] [address] [place] [address] Nader Ray MD [address] [facility] [address] [place] [address] Estiven Mcfadden DPM [address] [place] [address] [facility] Start: 10-04-2023 DIABETES SCREENING DIABETES SCREENIN [facility] Start: 10-03-2023 End: 10-03-2023 Patient encounter procedure 10/03/2023 1:30 PM EST Appointment [facility] [address] [address] Nader Ray MD [address] [address] Estiven Mcfadden DPM [address] [place] [address] [facility] Start: 09-19-2023 End: 09-19-2023 Patient encounter procedure 09/19/2023 1:30 PM EST Appointment [facility] [address] [address] Nader Ray MD [address] [address] Estiven Mcfadden DPM [address] [place] [address] [facility] Start: 09-16-2023 End: 09-16-2023 Patient encounter procedure 09/16/2023 11:00 AM EST Office Visit [facility] [address] [place] [address] Lisy Pace MD [address] [place] [address] [facility] Start: 09-05-2023 End: 09-05-2023 Patient encounter procedure 09/05/2023 1:30 PM EST Appointment [facility] [address] [address] Nader Ray MD [address] [address] Estiven Mcfadden DPM [address] [place] [address] [facility] Start: 09-04-2023 End: 09-04-2023 Patient encounter procedure 09/04/2023 1:30 PM EST Office Visit [facility] [address] [place] [address] Lisy Pace MD [address] [place] [address] [facility] Start: 08-22-2023 End: 08-22-2023 Patient encounter procedure 08/22/2023 1:30 PM EST Appointment [facility] [address] [address] Nader Ray MD [address] [address] Estiven Mcfadden DPM [address] [place] [address] [facility] Start: 08-21-2023 End: 08-21-2023 Patient encounter procedure 08/21/2023 11:15 AM EST Office Visit [facility] [address] [place] [address] Lisy Pace MD [address] [place] [address] [facility] Start: 08-01-2023 End: 08-01-2023 Patient encounter procedure 08/01/2023 1:30 PM EST Appointment [facility] [address] [address] Nader Ray MD [address] [address] Estiven Mcfadden DPM [address] [place] [address] [facility] Start: 07-25-2023 End: 07-25-2023 Patient encounter procedure 07/25/2023 1:30 PM EST Appointment [facility] [address] [address] Nader Ray MD [address] [address] Estiven Mcfadden DPM [address] [place] [address] [facility] Start: 07-13-2023 Hemoglobin A1c/Hemoglobin.total in Blood HEMOGLOBIN A1C [facility] Start: 07-11-2023 End: 07-11-2023 Patient encounter procedure 07/11/2023 1:30 PM EST Appointment [facility] [address] [address] Nader Ray MD [address] [address] Estiven Mcfadden DPM [address] [place] [address] [facility] Start: 06-26-2023 Diabetes: KED uACR (Urine Albumin / Creatinine Ratio) Diabetes: KED uACR (Urine Albumin / Creatinine Ratio) [facility] Start: 06-20-2023 End: 06-20-2023 Patient encounter procedure 06/20/2023 1:30 PM EST Appointment [facility] [address] [facility] [address] [place] [address] Nader Ray MD [address] [address] Estiven Mcfadden DPM [address] [place] [address] [facility] Start: 06-06-2023 End: 06-06-2023 Patient encounter procedure 06/06/2023 1:30 PM EDT Appointment [facility] [address] [facility] [address] [place] [address] Nader Ray MD [address] [facility] [address] [place] [address] Estiven Mcfadden DPM [address] [place] [address] [facility] Start: 05-23-2023 End: 05-23-2023 Patient encounter procedure [facility] Start: 05-06-2023 End: 05-06-2023 Patient encounter procedure 05/06/2023 Appointment Nader Ray MD [address] [facility] [address] [place] [address] Estiven Mcfadden DPM [address] [place] [address] [facility] Start: 04-18-2023 End: 04-18-2023 Patient encounter procedure 04/18/2023 Appointment Nader Ray MD [address] [facility] [address] [place] [address] Estiven Mcfadden DPM [address] [place] [address] [facility] Start: 04-12-2023 COVID-19 VACCINE () COVID-19 VACCINE () [facility] Start: 04-12-2023 COVID-19 Vaccines () COVID-19 Vaccines () [facility] Start: 04-04-2023 End: 04-04-2023 Patient encounter procedure 04/04/2023 Appointment Nader Ray MD [address] [address] Estiven Mcfadden DPM [address] [place] [address] [facility] Start: 03-21-2023 End: 03-21-2023 Patient encounter procedure 03/21/2023 Office Visit Cardiology Brian Wilson MD [address] [place] [address] [facility] Start: 03-21-2023 End: 03-21-2023 Patient encounter procedure 03/21/2023 Appointment Nader Ray MD [address] [address] Estiven Mcfadden DPM [address] [place] [address] [facility] Start: 03-12-2023 Refusal of treatment by patient INFLUENZA VACCINE [facility] Start: 01-18-2023 BREAST CANCER SCREENING BREAST CANCER SCREENING [facility] Start: 01-18-2023 Screening for malignant neoplasm of breast Breast Cancer Screening [facility] Start: 01-14-2023 DIABETES SCREENING DIABETES SCREENIN G [facility] Start: 01-02-2023 Diabetic foot examination Diabetes: Foot Exam [facility] Start: 01-02-2023 FOOT EXAM FOR DIABETICS FOOT EXAM FOR DIABETICS [facility] Start: 12-29-2022 Diabetes: KED eGFR (Estimated Glomerular Filtration Rate) Diabetes: KED eGFR (Estimated Glomerular Filtration Rate) [facility] Start: 09-23-2022 OSTEOPOROSIS SCREENING OSTEOPOROSIS SCREENING [facility] Start: 09-23-2022 Screening for osteoporosis Osteoporosis Screening [facility] Start: 07-30-2022 End: 07-30-2022 Patient encounter procedure 07/30/2022 Office Visit Cardiology Radha De Leon APRN 2400 [facility] [address] [place] [address] [facility] Start: 07-01-2022 Hemoglobin A1c/Hemoglobin.total in Blood HEMOGLOBIN A1C [facility] Start: 06-26-2022 End: 06-26-2022 Patient encounter procedure 06/26/2022 Office Visit Family Practice Lisy Pace MD [address] [place] [address] [facility] Start: 06-09-2022 DIABETES: MEDICAL ATTENTION FOR NEPHROPATHY DIABETES: MEDICAL ATTENTION FOR NEPHROPATHY [facility] Start: 04-12-2022 End: 04-12-2022 Patient encounter procedure 04/12/2022 Office Visit Cardiology Brian Wilson MD [address] [place] [address] [facility] Start: 03-12-2022 Refusal of treatment by patient INFLUENZA VACCINE [facility] Start: 02-14-2022 DIABETES: MEDICAL ATTENTION FOR NEPHROPATHY DIABETES: MEDICAL ATTENTION FOR NEPHROPATHY [facility] Start: 02-14-2022 FOOT EXAM FOR DIABETICS FOOT EXAM FOR DIABETICS [facility] Start: 02-09-2022 Diabetes: KED eGFR (Estimated Glomerular Filtration Rate) Diabetes: KED eGFR (Estimated Glomerular Filtration Rate) [facility] Start: 02-01-2022 End: 02-01-2022 Patient encounter procedure 02/01/2022 Appointment Estiven Mcfadden DPM [address] [place] [address] Nader Ray MD [address] [facility] [address] [place] [address] [facility] Start: 01-29-2022 End: 01-29-2022 Patient encounter procedure 01/29/2022 Office Visit Cardiology Radha De Leon APRN [address] [facility] [address] [place] [address] [facility] Start: 01-18-2022 End: 01-18-2022 Patient encounter procedure 01/18/2022 Appointment Radiology Lisy Pace MD [address] [place] [address] [facility] Start: 01-11-2022 End: 01-11-2022 Patient encounter procedure 01/11/2022 Appointment Estiven Mcfadden DPM [address] [place] [address] Nader Ray MD [address] [facility] [address] [place] [address] [facility] Start: 01-02-2022 End: 01-02-2022 Patient encounter procedure 01/02/2022 Office Visit Family Practice Lisy Pace MD [address] [place] [address] [facility] Start: 12-27-2021 End: 12-27-2021 Patient encounter procedure 12/27/2021 Office Visit Family Practice Lisy Pace MD [address] [place] [address] [facility] Start: 12-22-2021 End: 12-22-2021 Patient encounter procedure 12/22/2021 Appointment Estiven Mcfadden DPM [address] [place] [address] [facility] Start: 12-14-2021 Subsequent hospital visit by physician 12/14/2021 Hospital Encounter Estiven Mcfadden DPM [address] [place] [address] Wound, open [facility] Comment on above: Wound, open Start: 12-09-2021 COVID-19 VACCINE (4 - Booster for Pfizer series) COVID-19 VACCINE (4 - Booster for Pfizer series) [facility] Start: 12-07-2021 End: 12-07-2021 Patient encounter procedure [facility] Start: 12-06-2021 Hemoglobin A1c/Hemoglobin.total in Blood HEMOGLOBIN A1C [facility] Start: 11-23-2021 Subsequent hospital visit by physician 11/23/2021 Hospital Encounter Estiven Mcfadden DPM [address] [place] [address] Wound, open [facility] Comment on above: Wound, open Start: 11-23-2021 End: 11-23-2021 Patient encounter procedure 11/23/2021 Appointment Nader Ray MD [address] [address] [facility] Start: 11-09-2021 End: 11-09-2021 Patient encounter procedure 11/09/2021 Appointment Ashlie Cardenas MD [address] [place] [address] [place] [address] [facility] Start: 10-26-2021 End: 10-26-2021 Patient encounter procedure 10/26/2021 Appointment Nader Ray MD [address] [facility] [address] [place] [address] [facility] Start: 10-19-2021 End: 10-19-2021 Patient encounter procedure 10/19/2021 Appointment Nader Ray MD [address] [place] [address] [facility] Start: 10-05-2021 COVID-19 VACCINE (4 - Pfizer series) COVID-19 VACCINE (4 - Pfizer series) [facility] Start: 10-05-2021 End: 10-05-2021 Patient encounter procedure 10/05/2021 Appointment Nader Ray MD [address] [address] [facility] Start: 09-28-2021 End: 09-28-2021 Patient encounter procedure 09/28/2021 Appointment Nader Ray MD [address] [address] [facility] Start: 09-23-2021 BREAST CANCER SCREENING BREAST CANCER SCREENING [facility] Start: 09-14-2021 End: 09-14-2021 Patient encounter procedure 09/14/2021 Appointment Nader Ray MD [address] [address] [facility] Start: 08-31-2021 End: 08-31-2021 Patient encounter procedure 08/31/2021 Appointment Nader Ray MD [address] [address] [facility] Start: 08-17-2021 End: 08-17-2021 Patient encounter procedure 08/17/2021 Appointment Nader Ray MD [address] [address] [facility] Start: 08-12-2021 Hemoglobin A1c/Hemoglobin.total in Blood HEMOGLOBIN A1C [facility] Start: 08-08-2021 COVID-19 VACCINE (3 - Pfizer booster) COVID-19 VACCINE (3 - Pfizer booster) [facility] Start: 08-03-2021 End: 08-03-2021 Patient encounter procedure 08/03/2021 Appointment Nader Ray MD [address] [address] [facility] Start: 07-20-2021 End: 07-20-2021 Patient encounter procedure 07/20/2021 Appointment Nader Ray MD [address] [address] [facility] Start: 07-13-2021 End: 07-13-2021 Patient encounter procedure 07/13/2021 Appointment Ashlie Cardenas MD [address] [place] [address] [place] [address] [facility] Start: 06-29-2021 DIABETES: MEDICAL ATTENTION FOR NEPHROPATHY DIABETES: MEDICAL ATTENTION FOR NEPHROPATHY [facility] Start: 06-29-2021 End: 06-29-2021 Patient encounter procedure 06/29/2021 Appointment Nader Ray MD [address] [address] [facility] Start: 06-27-2021 DIABETES: MEDICAL ATTENTION FOR NEPHROPATHY DIABETES: MEDICAL ATTENTION FOR NEPHROPATHY [facility] Start: 05-17-2021 End: 05-17-2021 Patient encounter procedure 05/17/2021 Office Visit Family Practice Lisy Pace MD [address] [place] [address] [phone] [facility] Start: 04-06-2021 End: 04-06-2021 Office Visit 04/06/2021 Office Visit Cardiology Brian Wilson MD [address] [place] [address] [phone] [facility] Start: 03-31-2021 End: 03-31-2021 Patient encounter procedure 03/31/2021 Appointment Nader Ray MD 2400 [facility] [address] [place] [address] [phone] [facility] Start: 03-24-2021 End: 03-24-2021 Patient encounter procedure 03/24/2021 Appointment Nader Ray MD 2400 [facility] [address] [place] [address] [phone] [facility] Start: 03-12-2021 Influenza vaccination INFLUENZA VACC INE [facility] Start: 01-14-2021 FOOT EXAM FOR DIABETICS FOOT EXAM FOR DIABETICS [facility] Start: 12-28-2020 End: 12-28-2020 Office Visit 12/28/2020 Office Visit Family Practice Lisy Pace MD [address] [place] [address] [phone] [facility] Start: 12-25-2020 HbA1c (Bld) [Mass fraction] HEMOGLOBIN A1C [facility] Start: 11-11-2020 End: 11-11-2020 Appointment [facility] Start: 10-28-2020 End: 10-28-2020 Appointment 10/28/2020 Appointment Nader Ray MD 24[address] [facility] [address] [place] [address] [phone] [facility] Start: 10-14-2020 End: 10-14-2020 Appointment 10/14/2020 Appointment Nader Ray MD [address] [facility] [address] [place] [address] [phone] [facility] Start: 10-07-2020 End: 10-07-2020 Office Visit 10/07/2020 Office Visit Cardiology Radha De Leon APRN [address] [address] [phone] [facility] Start: 07-17-2020 BREAST CANCER SCREENING BREAST CANCER SCREENING [facility] Start: 07-12-2020 HbA1c (Bld) [Mass fraction] HEMOGLOBIN A1C [facility] Start: 06-17-2020 DIABETES: MEDICAL ATTENTION FOR NEPHROPATHY DIABETES: MEDICAL ATTENTION FOR NEPHROPATHY [facility] Start: 04-07-2020 End: 04-07-2020 Appointment 04/07/2020 Appointment [facility] Start: 03-12-2020 Influenza vaccination INFLUENZA VACC INE [facility] Start: 07-01-2017 DTaP/Tdap/Td VACCINE S (1 - Tdap) DTaP/Tdap/Td VACCINES (1 - Tdap) [facility] Start: 2014 RSV Immunization for Adults (1 - 1-dose 75+ series) RSV Immunization for Adults (1 - 1-dose 75+ series) [facility] Start: 2004 Microscopic observation Cyto stain Nom (Cvx) PAP SMEAR [facility] Start: 2004 PNEUMOCOCCAL 13 VACCINE (PCV13) PNEUMOCOCCAL 13 VACCINE (PCV13) [facility] Start: 2004 PNEUMOCOCCAL 23 VACCINE (PPSV23) PNEUMOCOCCAL 23 VACCINE (PPSV23) [facility] Start: 1999 HEPATITIS B VACCINES (1 of 3 - Risk 3-dose series) HEPATITIS B VACCINES (1 of 3 - Risk 3-dose series) [facility] Start: 1989 OSTEOPOROSIS SCREENING OSTEOPOROSIS SCREENING [facility] Start: 1989 Pneumococcal Vaccine : 50+ Years (1 of 1 - PCV) Pneumococcal Vaccine: 50+ Years (1 of 1 - PCV) [facility] Start: 1989 Zoster vaccine hzv live for subcutaneous use ZOSTER VACCINE (1 of 2) [facility] Start: 1989 Zoster Vaccines (1 o f 2) Zoster Vaccines (1 of 2) [facility] Start: 1958 DTaP/Tdap/Td Vaccine s (1 - Tdap) DTaP/Tdap/Td Vaccines (1 - Tdap) [facility] Start: 1958 HEPATITIS B VACCINES (1 of 3 - Risk 3-dose series) HEPATITIS B VACCINES (1 of 3 - Risk 3-dose series) [facility] Start: 1958 Pneumococcal Vaccine : 50+ Years (1 of 2 - PCV) Pneumococcal Vaccine: 50+ Years (1 of 2 - PCV) [facility] Start: 1957 Diabetes: KED uACR (Urine Albumin / Creatinine Ratio) Diabetes: KED uACR (Urine Albumin / Creatinine Ratio) [facility] Start: 1957 Diabetes: Urine Albumin-Creatinine Ratio for Kidney Health Diabetes: Urine Albumin-Creatinine Ratio for Kidney Health [facility] Start: 1951 Depression Screening Depression Scre ening [facility] Start: 1949 DIABETES: EYE EXAM DIABETES: EYE EXA M [facility] Start: 1945 PNEUMOCOCCAL VACCINE : 65+ Years (1 - PCV) PNEUMOCOCCAL VACCINE: 65+ Years (1 - PCV) [facility] Start: 1945 PNEUMOCOCCAL VACCINE : 65+ Years (1 of 2 - PCV) PNEUMOCOCCAL VACCINE: 65+ Years (1 of 2 - PCV) [facility] Start: 1945 Pneumococcal Vaccine s: 65+ Years (1 of 2 - PCV) Pneumococcal Vaccines: 65+ Years (1 of 2 - PCV) [facility] Start: 1939 Medicare Annual Wellness (AWV) Medicare Annual Wellness (AWV) [facility] Start: 1939 Medicare Annual Wellness Visit MEDICARE ANNUAL WELLNESS VISIT [facility] Start: 1939 Screening for osteoporosis Bone Density Scan [facility] Start: 1939 Thyroid stimulating hormone measurement TSH Level [facility] End: 03-21-2025 Aerobic and Anaerobic Culture with Stain [facility] Work Phone: Comment on above: Once (Lab) for 1 Occ urrences starting 03/21/2025 until 03/21/2025 Bacteria identified in Blood by Culture [facility] [employer] Bacteria identified in Unspecified specimen by Aerobe culture Culture, Aerobic Bacteria with Gram Stain Microbiology Routine 03/21/2025 6:36 PM EDT [facility] [employer] Bacteria identified in Unspecified specimen by Anaerobe culture Anaerobic culture Microbiology Routine 03/21/2025 6:36 PM EDT [facility] [employer] End: 01-26-2025 Bacteria identified in Urine by Culture [facility] Work Phone: Comment on above: Once (Lab) for 1 Occ urrences starting 01/26/2025 until 01/26/2025 Basic metabolic 2000 panel BASIC METABOLIC PANEL Lab Timed at 06 until discontinued starting 10/21/2020, 1 completed [facility] Comment on above: at 06 until disconti nued starting 10/21/2020, 1 completed [facility] Work Phone: BKR CULTURE, WOUND BKR CULTURE, WOUND Lab Routine 06/22/2021 11:24 AM EST [facility] Work Phone: CULTURE, MISCELLANEO US WITH GRAM STAIN CULTURE, MISCELLANEOUS WITH GRAM STAIN Lab Routine 10/18/2020 1:39 PM EST [facility] CULTURE, WOUND CULTURE, WOUND L ab Routine 06/22/2021 11:24 AM EST [facility] Dressing Order: Collagen, Xeroform; Three times per week; 4x4 gauze; Medfix tape Dressing Order: Collagen, Xeroform; Three times per week; 4x4 gauze; Medfix tape Wound Ostomy Routine 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) Ordered: 11/13/2024 [facility] Work Phone: Comment on above: Ordered: 11/13/2024 Dressing Order: Collagen, Xeroform; Three times per week; 4x4 gauze; Medfix tape Dressing Order: Collagen, Xeroform; Three times per week; 4x4 gauze; Medfix tape Wound Ostomy Routine 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) Ordered: 11/20/2024 [employer] Work Phone: Comment on above: Ordered: 11/20/2024 Dressing Order: Collagen, Xeroform; Three times per week; 4x4 gauze; Medfix tape Dressing Order: Collagen, Xeroform; Three times per week; 4x4 gauze; Medfix tape Wound Ostomy Routine Ordered: 11/27/2024 [employer] Work Phone: Comment on above: Ordered: 11/27/2024 Dressing Order: Collagen, Xeroform; Three times per week; 4x4 gauze; Medfix tape Dressing Order: Collagen, Xeroform; Three times per week; 4x4 gauze; Medfix tape Wound Ostomy Routine 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) Ordered: 12/11/2024 [employer] Work Phone: Comment on above: Ordered: 12/11/2024 Dressing Order: Collagen, Xeroform; Three times per week; 4x4 gauze; Medfix tape Dressing Order: Collagen, Xeroform; Three times per week; 4x4 gauze; Medfix tape Wound Ostomy Routine 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) Ordered: 12/29/2024 [employer] Work Phone: Comment on above: Ordered: 12/29/2024 Dressing Order: Collagen, Xeroform; Three times per week; 4x4 gauze; Medfix tape Dressing Order: Collagen, Xeroform; Three times per week; 4x4 gauze; Medfix tape Wound Ostomy Routine Diabetic ulcer of right foot associated with diabetes mellitus due to underlying condition, with necrosis of muscle, unspecified part of foot (HCC) Ordered: 01/05/2025 [employer] Work Phone: Comment on above: Ordered: 01/05/2025 Dressing Order: Collagen, Xeroform; Three times per week; 4x4 gauze; Medfix tape Dressing Order: Collagen, Xeroform; Three times per week; 4x4 gauze; Medfix tape Wound Ostomy Routine 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) Ordered: 01/12/2025 [employer] Work Phone: Comment on above: Ordered: 01/12/2025 Dressing Order: Collagen, Xeroform; Three times per week; Medfix tape Dressing Order: Collagen, Xeroform; Three times per week; Medfix tape Wound Ostomy Routine Diabetic ulcer of right foot associated with diabetes mellitus due to underlying condition, with necrosis of muscle, unspecified part of foot (HCC) Uncontrolled type 2 diabetes mellitus with hyperglycemia (HCC) [facility]: [facility]16[facility]20[facility] Work Phone: Comment on above: Ordered: 10/16/2024 Dressing Order: Collagen, Xeroform; Three times per week; Medfix tape Dressing Order: Collagen, Xeroform; Three times per week; Medfix tape Wound Ostomy Routine 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) Ordered: 11/06/2024 [employer] Work Phone: Comment on above: Ordered: 11/06/2024 Dressing Order: Collagen; Daily; Silicone foam borders (multiple sizes) Dressing Order: Collagen; Daily; Silicone foam borders (multiple sizes) Wound Ostomy Routine Diabetic ulcer of other part of right foot associated with diabetes mellitus due to underlying condition, with necrosis of muscle (HCC) Ordered: 10/02/2024 [employer] Work Phone: Comment on above: Ordered: 10/02/2024 [...] Charcot's joint of foot, right Ordered: 02/23/2025 [employer] Work Phone: Comment on above: Ordered: 02/23/2025 [...] Charcot's joint of foot, right Ordered: 03/09/2025 [employer] Work Phone: Comment on above: Ordered: 03/09/2025 [...] Charcot's joint of foot, right Ordered: 03/02/2025 [employer] Work Phone: Comment on above: Ordered: 03/02/2025 [...] diabetes mellitus with hyperglycemia (HCC) Ordered: 10/09/2024 [employer] Work Phone: Comment on above: Ordered: 10/09/2024 Glucose [Mass/volume ] in Serum or [facility] Work Phone: Comment on above: at 07,11,16, 22 unti l discontinued starting 11/10/2023 at 00,04,08 etc unti l discontinued starting 11/10/2023 PRN until discontinu ed starting 11/10/2023 End: 09-21-2024 Glutamic acid decarboxylase (Sendout) [facility] Work Phone: Comment on above: Once (Lab) for 1 Occ urrences starting 09/21/2024 until 09/21/2024 End: 09-21-2024 Insulin antibody (Sendout) [facility] Comment on above: Once (Lab) for 1 Occ urrences starting 09/21/2024 until 09/21/2024 End: 09-21-2024 Islet Cell Antibody Screen with Reflex to Titer [facility] Comment on above: Once (Lab) for 1 Occ urrences starting 09/21/2024 until 09/21/2024 Microscopic examination of blood, culture [facility] Patient Education ED AFIB ED [place] betic Insulin Reaction [facility] Work Phone: POC GLUCOSE [facility] Comment on above: at 07,11,16, 22 unti l discontinued starting 10/16/2020 at 00,04,08 etc unti l discontinued starting 10/16/2020 PRN until discontinu ed starting 10/16/2020 End: 01-26-2025 Urine Hold Cup Urine Hold Cup Lab Timed Once for 1 Occurrences starting 01/26/2025 until 01/26/2025 [facility] [employer] Comment on above: Once for 1 Occurrenc es starting 01/26/2025 until 01/26/2025 End: 09-21-2024 Zinc Transporter 8 Antibody [facility] [employer] Comment on above: Once (Lab) for 1 Occ urrences starting 09/21/2024 until 09/21/2024 Immunizations Immunization Date Immunization Notes Care Provider Fa concepcion 09-12-2023 HEMOGLOBIN A1C Nader Ray MD Work Phone: [facility] 01-11-2023 HEMOGLOBIN A1C Nader Ray MD Work Phone: [facility] 06-29-2022 Influenza, seasonal vaccine, quadrivalent, adjuvanted, .5mL dose, preservative free Nader Ray MD Work Phone: [facility] 06-29-2022 influenza virus vacc ine, unspecified formulation Nader Ray MD Work Phone: [facility] 12-29-2021 HEMOGLOBIN A1C Estiven Broussard PM Work Phone: [facility] 06-09-2021 flu Vaccine, Fluad Quadrivalent, 0.5ml PFS/SDV Nader Ray MD Work Phone: [facility] 06-09-2021 influenza virus vacc ine, unspecified formulation Estiven Mcfadden DPM Work Phone: [facility] 06-07-2021 HEMOGLOBIN A1C Nader Ray MD Work Phone: [facility] 02-09-2021 HEMOGLOBIN A1C [facility]ader Ray MD [facility] 06-27-2020 HEMOGLOBIN A1C Brian Pandrangi [facility] 01-11-2020 HEMOGLOBIN A1C [facility] 06-30-2017 tetanus and diphther ia toxoids, adsorbed, preservative free, for adult use (2 Lf of tetanus toxoid and 2 Lf of diphtheria toxoid) [facility] Payers Date Payer Category Payer Self-pay 2024 Medicare supplementa l policy (as second payer) [employer] [id number] 2004 Medicare [id number]. [id number] 2004 Medicare [id number]. 1.13.129. 2.7.3.033796.315 2004 Medicare [id number] 2001 Unknown [id number]. 1.13.129. 2.7.3.929402.315 2001 Unknown [id number] Unknown [id number] 1.2.840.044597.1.13.129. 2.7.3.023236.315 Unknown [id number] 2.16.840.1.745194.3.579. 2.246 Unknown [id number] 2.16.840.1.559116.3.579. 2.246 Unknown [id number] 2.16.840.1.354834.3.579. 2.246 Unknown [id number] 2.16.840.1.310669.3.579. 2.246 Unknown [id number] 2.16.840.1.662789.3.579. 2.246 Unknown [id number] 2.16.840.1.974711.3.579. 2.246 Unknown [id number] 2.16.840.1.105005.3.579. 2.246 Unknown [id number] 2.16.840.1.102088.3.579. 2.246 Unknown [id number] 2.16.840.1.950877.3.579. 2.246 Unknown [id number] 2.16.840.1.637478.3.579. 2.246 Unknown [id number] 2.16.840.1.473677.3.579. 2.246 Unknown [id number] 2.16840.1.212188.3.579. 2.246 Unknown [id number] 2.16.840.1.671050.3.579. 2.246 Unknown [id number] 2.840.1.607183.3.579. 2.246 Unknown [id number] 2.840.1.279654.3.579. 2.246 Unknown [id number] 2.16840.1.480244.3.579. 2.246 Unknown [id number] 2.16840.1.426906.3.579. 2.246 Unknown [id number] 2.16840.1.214641.3.579. 2.246 Unknown [id number] 2.840.1.740369.3.579. 2.246 Unknown [id number] 2.16840.1.537084.3.579. 2.246 Unknown [id number] 2.16840.1.559607.3.579. 2.246 Unknown [id number] 2.16.840.1.532895.3.579. 2.246 Unknown [id number] 2.16.840.1.709683.3.579. 2.246 Unknown [id number] 2.16.840.1.778017.3.579. 2.246 Unknown [id number] 2.16.840.1.424718.3.579. 2.246 Unknown [id number] 2.16.840.1.912101.3.579. 2.246 Unknown [id number] 2.16.840.1.037939.3.579. 2.246 Unknown [id number] 2.16.840.1.679290.3.579. 2.246 Unknown [id number] 2.16.840.1.335434.3.579. 2.246 Unknown [id number] 2.16.840.1.112389.3.579. 2.246 Unknown [id number] 2.16.840.1.951741.3.579. 2.246 Unknown [id number] 2.16.840.1.093072.3.579. 2.246 Unknown [id number] 2.16.840.1.629853.3.579. 2.246 Unknown [id number] 2.16.840.1.571729.3.579. 2.246 Unknown [id number] 2.16.840.1.143032.3.579. 2.246 Unknown [id number] 2.16.840.1.183524.3.579. 2.246 Unknown [id number] 2.16.840.1.718788.3.579. 2.462 Unknown [id number] 2.16.840.1.976497.3.579. 2.462 Unknown [id number] 2.16.840.1.339735.3.579. 2.462 Unknown [id number] 2.16.840.1.350233.3.579. 2.462 Social History Date Type Detail Facility Start: 12-31-2019 End: 05-31-2025 Tobacco smoking status [facility] Former smoker [facility] Start: 08-12-1957 End: 08-12-1964 History of tobacco use Current smoker [facility] Start: 08-12-1957 End: 08-12-1964 History of tobacco use Cigarette Smoker [facility] Start: 12-31-2019 End: 03-20-2025 Cigarettes smoked [...] 1940 Sex Assigned At Not on file [facility] Start: 09-11-2021 End: 02-01-2022 Exposure to SARS-CoV-2 (event) Not sure [facility] Start: 10-15-2020 Alcohol Comment monthly [facility] Tobacco smoking stat [facility] Tobacco smoking consumption unknown [facility] Start: 05-15-2019 End: 03-20-2025 Alcohol Use Disorder Identification Test - Consumption [AUDIT-C] [facility] How often to you hav e a drink containing alcohol? Monthly or less [facility] How many standard dr inks containing alcohol do you have on a typical day? 1 or 2 [facility] Frequency of Binge Drinking [facility] Has the [employer], [employer], or water [employer] threatened to shut off services in your home in past 12Mo No [facility] Do you belong to any clubs or organizations such as mandaeism groups, unions, fraternal or athletic groups, or [...] Start: 11-10-2023 Alcohol Comment less than monthly [facility] Start: 09-17-2024 Sex Female (finding) [facility] Start: 09-18-2024 End: 01-12-2025 Alcoholic beverage intake Ex-drinker (finding) [facility] How often to you hav e a drink containing alcohol? 2-4 times a month [facility] Start: 01-25-2025 Alcohol Comment drinks bee occasionally [facility] Do you feel stress - tense, restless, nervous, or anxious, or unable to sleep at night because your mind is troubled all the time - these days [OSQ] Not at all [facility] Start: 03-20-2025 Alcohol Comment drinks beer occasionally [facility] Start: 03-20-2025 Gender identity Identifies as female gender (finding) [facility] Start: 03-20-2025 Sexual orientation Heterosexual (finding) [facility] Start: 1940 Sex Assigned At Female [facility] Medical Equipment Procedure Code Equipment Code Equipment Origin al Text Equipment Identifier Dates [id number] Start: 01-15-2020 End: 09-17-2025 by Miscellaneous route Qd to bid [id number] Start: 01-15-2020 Qd to bid; dispe nse brand insurance will cover [id number] Start: 02-14-2021 Qd to bid; dispe nse brand insurance will cover [id number] Start: 01-02-2022 by Miscellaneous route Qd to bid [id number] Start: 01-02-2022 Qd to bid; dispe nse brand insurance will cover [id number] Start: 01-25-2023 Check glucose x3 daily [id number] St art: 09-23-2024 Use to inject 1- 4 times daily as directed. [id number] Start: 09-23-2024 End: 09-23-2024 Use as instructed [id number] Start: 09-17-2024 End: 09-17-2025 Nail Troch Ante 10mm 44cm Lt - [id number] Start: 03-21-2025 Kit Scr 100mm 4. 5mm Intertan - [id number] Start: 03-21-2025 Screw Bn 5mm 47. 5mm Trgn Fem - [id number] Start: 03-21-2025 Goals Date Patient Goal Desired Activity /State Personal health goal Personal health goal Functional Status Date Assessment Result Facility 03-20-2025 Total score [AUDIT-C] 1 03/20/20 25 8:15 PM EDT Arelis Mueller RN [facility] 02-23-2025 Patient Health Quest ionnaire 2 item (PHQ-2) [Reported] [facility] 01-25-2025 Total score [AUDIT-C] 2 01/26/20 10:41 PM EDT Celine Reyna RN [facility] Mental Status Date Assessment Result Facility 05-31-2025 Cognitive function Awake [facility] Work Phone: Clinical Notes 01-18-2021 to 05-31-2025 Note Date & Type Note Facility 05-31-2025 Discharge summary Note Date/Time May 31, 2025 5:48pm [facility] Medical Records Department [address] [place] [address] Emergency Department Summary 05/31/25 MR#: [id number] Acct: [id number] Name: HANNA NELSON Rep #:[id number] : 1940 85 From: [facility] [place] MD PCP: Dr. Prasanna Parra SrMary Carmen, DO Status:R EG ER Location: ED HPI History of Present Illness Chief Complaint: Alt LOC Detail of Chief Complaint: Altered mental status with change in speaking, blood sugar was low Informant: patient, family and EMS Limited: other (Patient does not recall what happened since her blood sugar was low.) Onset/Context/Timing Onset: Today and Hours Context: Sudden Onset Timing: Intermittent Quality and Location: Positive for Expressive Aphasia Onset: Prior to arrival Current Severity: Gone Maximum Severity: Severe Worsened by: Hypoglycemia Relieved by: Apple juice and sugar Associated Symptoms Associated Symptoms: Negative for Headache, Nausea, Vomiting or Chest Pain Narrative Narrative: History is limited for 2 reasons. Patient has dementia when chart review mentalstatus with altered she has no recall. Patient had a low blood sugar. She had trouble with speaking and her level conscious was depressed. She was treated with apple juice and sugar. When it was rechecked it was 231 and her speech wasimproving. She again developed problems speaking and her blood sugar was dropping and was 91. The nurse at the facility reported she did not eat all of her lunch. Patient was given 4 units of insulin prior to meal. Patient presently denies headache. She denies visual or auditory symptoms. Shedenies cardiac or respiratory symptoms. She denies GI symptoms. She denies numbness or tingling her arms or legs. She denies weakness in her arms or legs. Prior similar symptoms: Yes Recent [facility] Medical History Diarrhea, unspecified Personal history of nicotine dependence Personal history of (healed) traumatic fracture Personal history of urinary (tract) infections Other lack of coordination Other abnormalities of gait and mobility Overactive bladder Chronic kidney disease, stage 2 (mild) Flat foot [pes planus] (acquired), left foot Unilateral primary osteoarthritis, right knee Unspecified atrial fibrillation Other forms of acute ischemic heart disease Hypertensive chronic kidney disease with stage 1 through stage 4 chronic kidney disease, or unspecified chronic kidney disease Hyperlipidemia, unspecified Type 2 diabetes mellitus with hyperglycemia Type 2 diabetes mellitus with diabetic neuropathy, unspecified Hypothyroidism, unspecified Charcot's arthropathy (tabetic) Cognitive communication deficit History of falling Unspecified fracture of left pubis, subsequent encounter for fracture with routine healing Unspecified fracture of right pubis, subsequent encounter for fracture with routine healing Abnormal posture Hypotension, unspecified Other nonrheumatic aortic valve disorders Anemia, unspecified Personal history of other infectious and parasitic diseases Adjustment disorder with mixed anxiety and depressed mood Rhabdomyolysis Displaced subtrochanteric fracture of left femur, subsequent encounter for closed fracture with routine healing VRE (vancomycin resistant enterococcus) culture positive Home Medications ?Medication ?Instructions ?Recorded ?Last Taken ?Type L. rhamnosus 10 billion cell-vit C 1 tab PO DAILY SUPP LEMENT 05/31/25 05/24/25 History 90 mg-zinc 3 mg-eldrbry chew tablet (Culturee Immune Defense) LEMUS PROBIOTIC 1 cap PO DAILY SUPPLEMENT 05/25/25 History acetaminophen 325 mg capsule 650 mg PO TID PAIN 05/31/25 History apixaban 5 mg tablet (Eliquis) 5 mg PO BID DISPLACED 1 05/31/25 History SUBTROCHANTERIC FRACTURE LEFT FEMUR atorvastatin 20 mg tablet 20 mg PO DAILY HYPERLIPIDEMI A 05/31/25 05/30/25 History cyanocobalamin (vitamin B-12) 1,000 mcg PO DAILY SUPPL EMENT 05/31/25 05/31/25 History 1,000 mcg capsule duloxetine 30 mg capsule,delayed 30 mg PO BID ADJUSTME NT DISORDER 05/31/25 05/31/25 History release gabapentin 300 mg capsule 300 mg PO BID DIABETIC PAIN 05/31/25 05/31/25 History glucagon 1 mg solution for 1 mg IM Q20M PRN hypoglycem ia 05/31/25 Unknown History injection (Glucagon Emergency Kit) insulin degludec 100 unit/mL (3 34 unit subcut DAILY D M 05/31/25 05/31/25 History mL) subcutaneous pen insulin lispro 100 unit/mL 4 unit subcut TID DM 05/31/25 History subcutaneous solution levothyroxine 112 mcg tablet 112 mcg PO DAILY HYPOTHYR OIDISM 05/31/25 05/31/25 History magnesium hydroxide 400 mg/5 mL 30 ml PO DAILY PRN con stipation 05/31/25 Unknown History oral suspension (Gentle Laxative (magnesium hydroxide)) melatonin 3 mg capsule 3 mg PO QHS PRN sleep Unknown History menthol 5 % topical gel (Biofreeze 1 ea topical BID PA IN 05/31/25 05/31/25 History (menthol)) metformin 500 mg tablet 500 mg PO DAILY DM 05/31/25 05/31/25 History methenamine-sodium salicylate 162 2 tab PO DAILY UTI 05/31/25 History mg-162.5 mg tablet (Cystex Dual Action) metoprolol succinate 50 mg 50 mg PO BID HTN 05/31/25 History tablet,extended release 24 hr oxybutynin chloride 5 mg 10 mg PO DAILY OVERACTIVE BL ADDER 05/31/25 05/31/25 History tablet,extended release 24 hr semaglutide 1 mg/dose (4 mg/3 mL) 1 mg subcut TU DM 05/25/25 History subcutaneous pen injector (Ozempic) sennosides 8.6 mg-docusate sodium 1 tab-cap PO PRN CON STIPATION 05/31/25 Unknown History 50 mg tablet (Senna with Docusate Sodium) vitamin D3 250 mcg (10,000 1 cap PO DAILY SUPPLEMENT 1 05/31/25 History unit)-vitamin K2 45 mcg capsule Allergy/AdvReac Type Severity Reaction Status Date / Time No Known Allergies Allergy Verified 05/31/25 14:27 Social History Smoking Status: Former smoker ROS ROS ED Review of Systems ROS Unobtainable: due to mental status Constitutional Constitutional ED: Denies chills or fever(s) Cardiovascular Cardiovascular: Denies chest pain or palpitations Respiratory/Chest Respiratory/Chest: Denies cough or dyspnea Gastrointestinal Gastrointestinal: Denies vomiting Neurologic Neurologic: Denies paresthesias Endocrine Endocrinology: Denies polydipsia EXAM Physical Exam Const Vital Signs: 05/31/25 14:22 05/31/25 15:22 05/31/25 16:00 Temperature 97.5 F L Temperature Source Oral Pulse Rate 111 H 96 114 H Respiratory Rate 20 H 17 22 H Blood Pressure 124/73 H 124/82 H 125/67 H Blood Pressure Mean 90 96 86 Pulse Ox 99 98 Oxygen Delivery Method Room Air Positive well nourished and well developed Constitutional Narrative: Pleasant elderly woman. Vital signs noted. She is speaking without difficulty. She does have a history of atrial fibrillation on anticoagulant. She is on metoprolol 25 mg twice daily for rate control. General Appearance ED: well developed HEENT Reports moist mucous membranes atraumatic Eyes PERRL and EOMs intact bilaterally Eyes Narrative: There is no nystagmus. General Eye ED: Negative for pale conjunctiva or scleral icterus Neck no lymphadenopathy, supple and no JVD Resp normal respiratory effort and clear to auscultation bilaterally Cardio no murmurs Rate: tachycardic Rhythm: abnormal rhythm irregularly irregular GI normal to inspection, nondistended, normoactive bowel sounds, soft to palpation,non-tender, non-distended and no masses Back/Spine no CVA tenderness Extremity normal to inspection General Extremety ED: Negative for deformity or edema General Extremity: Negative for deformity or edema Neuro No oriented x3, CN's II-XII intact bilaterally and no sensory deficits noted Neuro Narrative: Patient is at her baseline. 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 Blood work was obtained. Patient was observed. Blood work was obtained because of her A-fib RVR. She received dose of metoprolol in the emergency department as well as EKG. History & Record Review Additional record(s) reviewed:: Prior ED visit and Prior labs Lab Data Attestation: I reviewed the patient's lab results. Lab results narrative: Electrolyte panel is remarkable for an elevated BUN to creatinine ratio of approximately 38-1. Blood sugar is elevated at 220 with a normal CO2 anion gap. White count slightly elevated 11.8 thousand. There is slight shift with no bandemia. H&H is normal. Labs: Laboratory Results - last 24 hr 05/31/25 15:37 WBC 11.8 H RBC 4.34 Hgb 12.9 Hct 39.4 MCV 90.8 MCH 29.7 MCHC 32.7 RDW Std Deviation 51.5 H RDW Coeff of Remy 15.5 H Plt Count 262 MPV 10.5 Immature Gran % (Auto) 0.500 Neut % (Auto) 75.0 H Lymph % (Auto) 14.7 L [place] % (Auto) 7.5 Eos % (Auto) 2.0 Baso % (Auto) 0.3 Absolute Neuts (auto) 8.9 H Absolute Lymphs (auto) 1.74 Nucleated RBC % 0 Sodium 139 Potassium 4.4 Chloride 101 Carbon Dioxide 22.5 Anion Gap 15 BUN 35 H Creatinine 0.94 Estim Creat Clear Calc 53.40 Est GFR (MDRD) Non-Af 59 L BUN/Creatinine Ratio 37.6 H Glucose 220 H Calcium 9.3 EKG Initial EKG: Attestation: I personally reviewed and interpreted this EKG as follows: Interpretation: Atrial Fibrillation (Rate is 117. QRS duration 84 ms. QTduration 206 ms. Eastman is normal. There is no ischemic changes noted.) Treatment and Re-Evaluation Narrative: Patient was reassessed at 1644. She has no problems with speech. She states she feels good. She would like to go home family was not in the room Discharge Plan Triage Chief Complaint: Alt LOC ED Provider: Sp[facility]er [facility] Dx/Rx/DC Orders Clinical Impression: Hypoglycemia, Atrial fibrillation with RVR, Acute prerenal azotemia, Hypoglycemia associated with type 2 diabetes mellitus, Alteration in neurologic function, Anticoagulant long-term use Instructions: ED AFIB, ED Diabetic Insulin Reaction Prescriptions: No Action atorvastatin 20 mg tablet 20 mg PO DAILY Culturelle Immune Defense 10 billion cell -90 mg-3 mg tablet,chewable 1 tab PO DAILY cyanocobalamin (vitamin B-12) 1,000 mcg capsule 1,000 mcg PO DAILY Cystex Dual Action 162-162.5 mg tablet 2 tab PO DAILY insulin degludec 100 unit/mL (3 mL) insulin pen 34 unit SUBCUT DAILY metformin 500 mg tablet 500 mg PO DAILY levothyroxine 112 mcg tablet 112 mcg PO DAILY oxybutynin chloride 5 mg tablet extended release 24hr 10 mg PO DAILY LEMUS PROBIOTIC capsule 1 cap PO DAILY Patient Comments: 30 BILLION SHARMILA ON OCT PT ONLY HAD ONE DOSE ON 05/25 Ozempic 1 mg/dose (4 mg/3 mL) pen injector 1 mg SUBCUT TU Patient Comments: [NO ORIGINAL SIG] vitamin D3-vitamin K2 250 mcg (10,000 unit)-45 mcg capsule 1 cap PO DAILY Biofreeze (menthol) 5 % gel 1 ea topical BID Patient Comments: RIGHT KNEE duloxetine 30 mg capsule,delayed release(DR/EC) 30 mg PO BID Eliquis 5 mg tablet 5 mg PO BID gabapentin 300 mg capsule 300 mg PO BID metoprolol succinate 50 mg tablet extended release 24 hr 50 mg PO BID insulin lispro 100 unit/mL solution 4 unit subcut TID acetaminophen 325 mg capsule 650 mg PO TID Glucagon Emergency Kit (human) 1 mg recon soln 1 mg IM Q20M PRN (Reason: hypoglycemia) Rx Instructions: until target blood sugar attained melatonin 3 mg capsule 3 mg PO QHS PRN (Reason: sleep) magnesium hydroxide [Gentle Laxative (mag hydrox)] 400 mg/5 mL suspension 30 ml PO DAILY PRN (Reason: constipation) sennosides-docusate sodium [Senna with Docusate Sodium] 8.6-50 mg tablet 1 tab-cap PO PRN Primary Care Provider: Aida Lopez,Prasanna Referrals: Aida Lopez,Prasanna, [Primary Care Provider, Integrative Medicine] - 1 Week Activity Restrictions/Additional Instructions: 1. Increase your metoprolol to 50 mg in the morning and do not change the p.m. dose. 2. Follow-up with your doctor for repeat exam and EKG to assess your rhythm. Print Language: Indonesian Disposition Disposition: Home, Self Care NIHSS NIHSS 1a. Level of Consciousness: 0 - Alert; keenly responsive 1b. LOC Questions: 1 - Answers ONE question correctly 1c. LOC Commands: 0 - Performs BOTH tasks correctly 2. Best Gaze: 0 - Normal 3. Visual: 0 - No visual loss 4. Facial Palsy: 0 - Normal symmetrical movements 5a. Left Arm: 0 - No drift; arm holds 90 (or 45) degrees for full 10 seconds 5b. Right Arm: 0 - No drift; arm holds 90 (or 45) degrees for full 10 seconds 6a. Left Le - No drift; leg holds 30-degree position for full 5 seconds 6b. Right Le - No drift; leg holds 30-degree position for full 5 seconds 7. Limb Ataxia: 0 - Absent 8. Sensory: 0 - Normal; no sensory loss 9. Best Language: 0 - No aphasia; normal 10. Dysarthria: 0 - Normal 11. 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 Call [facility] ([phone]) or report to the closest Emergency Room. Call 911 if necessary. 05/31/25 1648 <Electronically signed by Spenser Grande MD> Cosigner Signature (if applicable): CC: Dr. Prasanna Parra Sr., DO ~ Signed [facility] Work Phone: [phone] 857-862810-20-2025 Discharge summary [facility] Medical Records Department [address] [place] [address] Emergency Department Summary 05/31/25 MR#: [id number] Acct: [id number] Name: HANNA NELSON Rep #:[id number] : 1940 85 From: Spenser Grande MD PCP: Dr. Prasanna Parra Sr., DO Status:R EG ER Location: ED HPI History of Present Illness Chief Complaint: Alt LOC Detail of Chief Complaint: Altered mental status with change in speaking, blood sugar was low Informant: patient, family and EMS Limited: other (Patient does not recall what happened since her blood sugar was low.) Onset/Context/Timing Onset: Today and Hours Context: Sudden Onset Timing: Intermittent Quality and Location: Positive for Expressive Aphasia Onset: Prior to arrival Current Severity: Gone Maximum Severity: Severe Worsened by: Hypoglycemia Relieved by: Apple juice and sugar Associated Symptoms Associated Symptoms: Negative for Headache, Nausea, Vomiting or Chest Pain Narrative Narrative: History is limited for 2 reasons. Patient has dementia when chart review mentalstatus with altered she has no recall. Patient had a low blood sugar. She had trouble with speaking and her level conscious was depressed. She was treated with apple juice and sugar. When it was rechecked it was 231 and her speech wasimproving. She again developed problems speaking and her blood sugar was dropping and was 91. The nurse at the facility reported she did not eat all of her lunch. Patient was given 4 units of insulin prior to meal. Patient presently denies headache. She denies visual or auditory symptoms. Shedenies cardiac or respiratory symptoms. She denies GI symptoms. She denies numbness or tingling her arms or legs. She denies weakness in her arms or legs. Prior similar symptoms: Yes Recent Illness[facility] Medical History Diarrhea, unspecified Personal history of nicotine dependence Personal history of (healed) traumatic fracture Personal history of urinary (tract) infections Other lack of coordination Other abnormalities of gait and mobility Overactive bladder Chronic kidney disease, stage 2 (mild) Flat foot [pes planus] (acquired), left foot Unilateral primary osteoarthritis, right knee Unspecified atrial fibrillation Other forms of acute ischemic heart disease Hypertensive chronic kidney disease with stage 1 through stage 4 chronic kidney disease, or unspecified chronic kidney disease Hyperlipidemia, unspecified Type 2 diabetes mellitus with hyperglycemia Type 2 diabetes mellitus with diabetic neuropathy, unspecified Hypothyroidism, unspecified Charcot's arthropathy (tabetic) Cognitive communication deficit History of falling Unspecified fracture of left pubis, subsequent encounter for fracture with routine healing Unspecified fracture of right pubis, subsequent encounter for fracture with routine healing Abnormal posture Hypotension, unspecified Other nonrheumatic aortic valve disorders Anemia, unspecified Personal history of other infectious and parasitic diseases Adjustment disorder with mixed anxiety and depressed mood Rhabdomyolysis Displaced subtrochanteric fracture of left femur, subsequent encounter for closed fracture with routine healing VRE (vancomycin resistant enterococcus) culture positive Home Medications ?Medication ?Instructions ?Recorded ?Last Taken ?Type L. rhamnosus 10 billion cell-vit C 1 tab PO DAILY SUPP LEMENT 05/31/25 05/24/25 History 90 mg-zinc 3 mg-eldrbry chew tablet (Culturelle Immune Defense) LEMUS PROBIOTIC 1 cap PO DAILY SUPPLEMENT 05/25/25 History acetaminophen 325 mg capsule 650 mg PO TID PAIN 05/31/25 History apixaban 5 mg tablet (Eliquis) 5 mg PO BID DISPLACED 1 05/31/25 History SUBTROCHANTERIC FRACTURE LEFT FEMUR atorvastatin 20 mg tablet 20 mg PO DAILY HYPERLIPIDEMI A 05/31/25 05/30/25 History cyanocobalamin (vitamin B-12) 1,000 mcg PO DAILY SUPPL EMENT 05/31/25 05/31/25 History 1,000 mcg capsule duloxetine 30 mg capsule,delayed 30 mg PO BID ADJUSTME NT DISORDER 05/31/25 05/31/25 History release gabapentin 300 mg capsule 300 mg PO BID DIABETIC PAIN 05/31/25 05/31/25 History glucagon 1 mg solution for 1 mg IM Q20M PRN hypoglycem ia 05/31/25 Unknown History injection (Glucagon Emergency Kit) insulin degludec 100 unit/mL (3 34 unit subcut DAILY D M 05/31/25 05/31/25 History mL) subcutaneous pen insulin lispro 100 unit/mL 4 unit subcut TID DM 05/31/25 History subcutaneous solution levothyroxine 112 mcg tablet 112 mcg PO DAILY HYPOTHYR OIDISM 05/31/25 05/31/25 History magnesium hydroxide 400 mg/5 mL 30 ml PO DAILY PRN con stipation 05/31/25 Unknown History oral suspension (Gentle Laxative (magnesium hydroxide)) melatonin 3 mg capsule 3 mg PO QHS PRN sleep Unknown History menthol 5 % topical gel (Biofreeze 1 ea topical BID PA IN 05/31/25 05/31/25 History (menthol)) metformin 500 mg tablet 500 mg PO DAILY DM 05/31/25 05/31/25 History methenamine-sodium salicylate 162 2 tab PO DAILY UTI 1 05/31/25 History mg-162.5 mg tablet (Cystex Dual Action) metoprolol succinate 50 mg 50 mg PO BID HTN 05/31/25 1 History tablet,extended release 24 hr oxybutynin chloride 5 mg 10 mg PO DAILY OVERACTIVE BL ADDER 05/31/25 05/31/25 History tablet,extended release 24 hr semaglutide 1 mg/dose (4 mg/3 mL) 1 mg subcut TU DM 05/25/25 History subcutaneous pen injector (Ozempic) sennosides 8.6 mg-docusate sodium 1 tab-cap PO PRN CON STIPATION 05/31/25 Unknown History 50 mg tablet (Senna with Docusate Sodium) vitamin D3 250 mcg (10,000 1 cap PO DAILY SUPPLEMENT 1 05/31/25 History unit)-vitamin K2 45 mcg capsule Allergy/AdvReac Type Severity Reaction Status Date / Time No Known Allergies Allergy Verified 05/31/25 14:27 Social History Smoking Status: Former smoker ROS ROS ED Review of Systems ROS Unobtainable: due to mental status Constitutional Constitutional ED: Denies chills or fever(s) Cardiovascular Cardiovascular: Denies chest pain or palpitations Respiratory/Chest Respiratory/Chest: Denies cough or dyspnea Gastrointestinal Gastrointestinal: Denies vomiting Neurologic Neurologic: Denies paresthesias Endocrine Endocrinology: Denies polydipsia EXAM Physical Exam Const Vital Signs: 05/31/25 14:22 05/31/25 15:22 05/31/25 16:00 Temperature 97.5 F L Temperature Source Oral Pulse Rate 111 H 96 114 H Respiratory Rate 20 H 17 22 H Blood Pressure 124/73 H 124/82 H 125/67 H Blood Pressure Mean 90 96 86 Pulse Ox 99 98 Oxygen Delivery Method Room Air Positive well nourished and well developed Constitutional Narrative: Pleasant elderly woman. Vital signs noted. She is speaking without difficulty. She does have a history of atrial fibrillation on anticoagulant. She is on metoprolol 25 mg twice daily for rate control. General Appearance ED: well developed HEENT Reports moist mucous membranes atraumatic Eyes PERRL and EOMs intact bilaterally Eyes Narrative: There is no nystagmus. General Eye ED: Negative for pale conjunctiva or scleral icterus Neck no lymphadenopathy, supple and no JVD Resp normal respiratory effort and clear to auscultation bilaterally Cardio no murmurs Rate: tachycardic Rhythm: abnormal rhythm irregularly irregular GI normal to inspection, nondistended, normoactive bowel sounds, soft to palpation,non-tender, non-distended and no masses Back/Spine no CVA tenderness Extremity normal to inspection General Extremety ED: Negative for deformity or edema General Extremity: Negative for deformity or edema Neuro No oriented x3, CN's II-XII intact bilaterally and no sensory deficits noted Neuro Narrative: Patient is at her baseline. 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 Blood work was obtained. Patient was observed. Blood work was obtained because of her A-fib RVR. She received dose of metoprolol in the emergency department as well as EKG. History & Record Review Additional record(s) reviewed:: Prior ED visit and Prior labs Lab Data Attestation: I reviewed the patient's lab results. Lab results narrative: Electrolyte panel is remarkable for an elevated BUN to creatinine ratio of approximately 38-1. Blood sugar is elevated at 220 with a normal CO2 anion gap. White count slightly elevated 11.8 thousand.There is slight shift with no bandemia. H&H is normal. Labs: Laboratory Results - last 24 hr 05/31/25 15:37 WBC 11.8 H RBC 4.34 Hgb 12.9 Hct 39.4 MCV 90.8 MCH 29.7 MCHC 32.7 RDW Std Deviation 51.5 H RDW Coeff of Remy 15.5 H Plt Count 262 MPV 10.5 Immature Gran % (Auto) 0.500 Neut % (Auto) 75.0 H Lymph % (Auto) 14.7 L [place] % (Auto) 7.5 Eos % (Auto) 2.0 Baso % (Auto) 0.3 Absolute Neuts (auto) 8.9 H Absolute Lymphs (auto) 1.74 Nucleated RBC % 0 Sodium 139 Potassium 4.4 Chloride 101 Carbon Dioxide 22.5 Anion Gap 15 BUN 35 H Creatinine 0.94 Estim Creat Clear Calc 53.40 Est GFR (MDRD) Non-Af 59 L BUN/Creatinine Ratio 37.6 H Glucose 220 H Calcium 9.3 EKG Initial EKG: Attestation: I personally reviewed and interpreted this EKG as follows: Interpretation: Atrial Fibrillation (Rate is 117. QRS duration 84 ms. QTduration 206 ms. Eastman is normal. There is no ischemic changes noted.) Treatment and Re-Evaluation Narrative: Patient was reassessed at 1644. She has no problems with speech. She states she feels good. She would like to go home family was not in the room Discharge Plan Triage Chief Complaint: Alt LOC ED Provider: Spenser Grande Dx/Rx/DC Orders Clinical Impression: Hypoglycemia, Atrial fibrillation with RVR, Acute prerenal azotemia, Hypoglycemia associated with type 2 diabetes mellitus, Alteration in neurologic function, Anticoagulant long-term use Instructions: ED AFIB, ED Diabetic Insulin Reaction Prescriptions: No Action atorvastatin 20 mg tablet 20 mg PO DAILY Culturelle Immune Defense 10 billion cell -90 mg-3 mg tablet,chewable 1 tab PO DAILY cyanocobalamin (vitamin B-12) 1,000 mcg capsule 1,000 mcg PO DAILY Cystex Dual Action 162-162.5 mg tablet 2 tab PO DAILY insulin degludec 100 unit/mL (3 mL) insulin pen 34 unit SUBCUT DAILY metformin 500 mg tablet 500 mg PO DAILY levothyroxine 112 mcg tablet 112 mcg PO DAILY oxybutynin chloride 5 mg tablet extended release 24hr 10 mg PO DAILY LEMUS PROBIOTIC capsule 1 cap PO DAILY Patient Comments: 30 BILLION SHARMILA ON OCT PT ONLY HAD ONE DOSE ON 05/25 Ozempic 1 mg/dose (4 mg/3 mL) pen injector 1 mg SUBCUT TU Patient Comments: [NO ORIGINAL SIG] vitamin D3-vitamin K2 250 mcg (10,000 unit)-45 mcg capsule 1 cap PO DAILY Biofreeze (menthol) 5 % gel 1 ea topical BID Patient Comments: RIGHT KNEE duloxetine 30 mg capsule,delayed release(DR/EC) 30 mg PO BID Eliquis 5 mg tablet 5 mg PO BID gabapentin 300 mg capsule 300 mg PO BID metoprolol succinate 50 mg tablet extended release 24 hr 50 mg PO BID insulin lispro 100 unit/mL solution 4 unit subcut TID acetaminophen 325 mg capsule 650 mg PO TID Glucagon Emergency Kit (human) 1 mg recon soln 1 mg IM Q20M PRN (Reason: hypoglycemia) Rx Instructions: until target blood sugar attained melatonin 3 mg capsule 3 mg PO QHS PRN (Reason: sleep) magnesium hydroxide [Gentle Laxative (mag hydrox)] 400 mg/5 mL suspension 30 ml PO DAILY PRN (Reason: constipation) sennosides-docusate sodium [Senna with Docusate Sodium] 8.6-50 mg tablet 1 tab-cap PO PRN Primary Care Provider: Prasanna Parra Sr. Referrals: Aida Lopez,DO Prasanna [Primary Care Provider, Integrative Medicine] - 1 Week Activity Restrictions/Additional Instructions: 1. Increase your metoprolol to 50 mg in the morning and do not change the p.m. dose. 2. Follow-up with your doctor for repeat exam and EKG to assess your rhythm. Print Language: Indonesian Disposition Disposition: Home, Self Care NIHSS NIHSS 1a. Level of Consciousness: 0 - Alert; keenly responsive 1b. LOC Questions: 1 - Answers ONE question correctly 1c. LOC Commands: 0 - Performs BOTH tasks correctly 2. Best Gaze: 0 - Normal 3. Visual: 0 - No visual loss 4. Facial Palsy: 0 - Normal symmetrical movements 5a. Left Arm: 0 - No drift; arm holds 90 (or 45) degrees for full 10 seconds 5b. Right Arm: 0 - No drift; arm holds 90 (or 45) degrees for full 10 seconds 6a. Left Le - No drift; leg holds 30-degree position for full 5 seconds 6b. Right Le - No drift; leg holds 30-degree position for full 5 seconds 7. Limb Ataxia: 0 - Absent 8. Sensory: 0 - Normal; no sensory loss 9. Best Language: 0 - No aphasia; normal 10. Dysarthria: 0 - Normal 11. 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 Call [email or web address] ([phone]) or report tothe closest Emergency Room. Call 911 if necessary. 05/31/25 2704 Cosigner Signature (if applicable): CC: Dr. Prasanna Parra Sr., DO ~ Signed [facility]09-03-2025 Telephone encounter Note* Telephone Encounter - Tiarra Gross RN - 04/14/2025 9:13 PM EDT S: Patient's son spoke with [facility] nurse regarding appointment cancellation B: Onset of [...] response Protocols used: PCP Call - No [id number] [id number] Miscellaneous Notes* Telephone Encounter - Tiarra Gross RN - 04/14/2025 9:13 PM EDT S: Patient's son spoke with [facility] nurse regarding appointment cancellation B: Onset of [...] response Protocols used: PCP Call - No [id number] documented in this [facility]08-13-2025 History of Present illness Narrative* Orlin Hallman MD - 03/24/2025 4:35 PM EDT Cardiology Consults Plan of Care Asked for evaluation of tachycardia. Afib rates 100s-130s. Prior recommendations to titrate beta roxi. Adjusted beta roxi to metoprolol succinate 50 mg BID. Will follow up tele tomorrow. Orlin Hallman MD Fellow, Cardiovascular Disease, PGY-6 * Elda MonteMary Carmen Miranda, PT - 03/24/2025 2:26 PM EDT Images from the original note were not included. PHYSICAL THERAPY [facility] Treatment Note Name/MRN: Hanna Nelson ([id number]) Date of : 1940 Age: 84 y.o. [facility] Discharge Recommendation: Halfway Facility Equipment Needed: No Prior Level of [...] Raw Score (No Stairs) : 6 JH-HLM -HLM Score: Bed activity Goals Patient Stated Goal: [...] 45 Timed Code Treatment Minutes: 25 Minutes (CHARLES, FESTUS) Variance: 20 Reason: (pain meds, encouragement to participate) Elda Miranda PT * Brice Mota MD - 03/24/2025 11:50 AM EDT Hospitalist Progress Note Subjective: Admit Date: 03/20/2025 PCP: Dorothy Medrano Room#: [id number] A Chief Complaint Patient presents with Fall Hip Pain Left hip pain Brief Hospital course: Per previous providers note: "Patient is an 84-year-old female with past [...] CBC: Recent Labs 03/22/25 0116 03/22/25 0910 03/23/2514503/24/25 0057 WBC 9.1 -- 8.8 9.7 RBC 2.25* -- 2.84* 2.67* HGB 6.7* 8.2* 8.4* 7.9* HCT 20.6* 25.6* 26.1* 24.2* MCV 91.6 -- 91.9 90.6 RDW 16.0* -- 16.0* 15.6* PLT 157 -- 180 221 BMP: Recent Labs 03/22/25 0116 03/23/25 0146 03/24/25 005 NA 133* 139 138 K 4.5 4.5 [...] Contact: Hi Nelson Relation: Son Preferred language: Indonesian Clammer needed? No Secondary Emergency Contact: Melba Black [employer] [facility] Mobile Relation: Daughter Bobbyclarence Mendosa MD Svetlana Division of Hospital Medicine Inpatient Medical Services/[facility] [1] Past Medical History: Diagnosis Date Arthritis [...] Diabetes mellitus (HCC) Hyperlipidemia Hypertension Hypothyroidism Neuropathy * Ania Webb APRN - PSYCHOLOGIST PRIVATE PRACTICE - 03/24/2025 8:57 AM EDT [facility] Geriatric Medicine Inpatient Consult Service Admission Date: 03/20/2025 Assessment Principal Problem: Closed fracture of left hip, initial encounter ([facility]) Plan Fall -Multiple risk factors including decreased hearing, decreased vision, cognitive deficits, diabetes,acute illness, and possible medication side effect -Continue [...] Per previous conversation with son, plan is [facility] Cognitive impairment --Followed by [facility]. --Concern for Alzheimer's dementia --Son noted cognitive issues started about a year ago, worsening with time. --Lives home alone with strong support from her children and has private home health aids 2 hours aday/6 days a week --Per son, in process of moving patient to assisted living. --Follow up with [facility] as able-discussed with Hi-patient's son. Information added [...] B12 deficiency Lab Results Component Value Date [id number] 231 03/22/2025 --Start B12 1000mcg PO daily [...] bills. Patient has not driven since May, familyhad driving concerns for patient. Short term memory [...] notes reviewed: -per CM, referral placed for [facility] -Vancomycin discontinued per antibiotic stewardship recommendations PRN meds in past 24 hours: Dilaudid 0.25mg times 1 on 03/23 Metoprolol IV times 1 on 03/23 Oxycodone 5mg times 3 on 03/23, times 1 on 03/24 Labs: 03/24: Sodium 138, potassium 4.4, BUN 26, Creatinine 1.06 03/24: WBC 9.7, Hgb 7.9, platelets 221 03/23: Vitamin D 45 03/22: Vitamin D94=388 03/23: Seen by OT, recommend SNF. 03/23: [...] for abdominal distention, abdominal pain, constipation, diarrhea, nauseaand vomiting. Genitourinary: Negative for difficulty urinating and [...] Pulse 114 Temp (!) 35.8 C (96.5 F)(Temporal) Resp 16 Ht 5' 10.75" (1.797 m) [...] 1.71 03/14/2025 Lab Results Component Value Date [id number] 231 03/22/2025 Lab Results Component Value Date VITD25 45 03/23/2025 Reviewed: allergies, previous encounters, active problem lists, medications, and labs [1] Current Facility-Administered Medications: acetaminophen (Tylenol) tablet 1,000 mg, 1,000 mg, Oral, TID, Raffi Paulino MD, 1,000 mg at apixaban (Eliquis) tablet 5 mg, 5 mg, [...] BID, Janet Rosemarie, DO, 300 mg at 03/24/25857 glucagon (human recombinant) injection 1 mg, 1 mg, IntraMUSCular, PRN, Janet Rosemarie, DO glucose oral gel 15 g, 15 g, Oral, PRN, Janet Garciaire, DO HYDROmorphone (Dilaudid) injection 0.25 mg, 0.25 mg, IntraVENous, q4h PRN, 0.25 mg at 03/23/25 0919OR [DISCONTINUED] HYDROmorphone (Dilaudid) injection 0.5 mg, 0.5 mg, IntraVENous, q4h PRN, Aramis Hui, DO, 0.5 mg at 03/22/25 0707 insulin glargine (Lantus) injection 26 Units, 26 Units, SubCUTAneous, Nightly, Janet Garciaire, DO,26 Units at 03/23/252100 Insulin Lispro (Humalog) injection 0-12 Units, 0-12 Units, SubCUTAneous, TID WC, 2 Units at 03/24/25 0858 AND Insulin Lispro (Humalog) injection 0-12 Units, 0-12 Units, SubCUTAneous, Nightly, Raffi Paulino MD, 6 Units at 03/23/25 210 Lactobacillus 0.05-0.05 MG 4 tablet, 4 tablet, Oral, Daily, Janet Garciaire, DO, 4 tablet at 03/24/25 0903 levothyroxine (Synthroid, Levoxyl) tablet 25 mcg, 25 mcg, Oral, qAM AC, Janet Garciaire, DO, 25 mcgat 03/24/25 0525 melatonin tablet 3 mg, 3 mg, Oral, Nightly PRN, Ania Webb, LAPIDARIST - PSYCHOLOGIST [facility]IVATE PRACTICE metoprolol tartrate (Lopressor) injection 5 mg, 5 mg, IntraVENous, q5 min PRN, Raffi Paulino MD, 5 mg at 03/23/25 1010 metoprolol tartrate (Lopressor) tablet 25 mg, 25 mg, Oral, q8h, Raffi Paulino MD, 25 mg at 03/24/25 0858 naloxone (Narcan) injection 0.4 mg, 0.4 mg, IntraVENous, PRN, Miguel Wilcoxz, DO ondansetron ODT (Zofran-ODT) disintegrating tablet 4 mg, 4 mg, Oral, q8h PRN OR ondansetron (Zofran) injection 4 mg, 4 mg, IntraVENous, q6h PRN, Janet Houston, DO oxyCODONE (Roxicodone) immediate release tablet 2.5 mg, 2.5 mg, Oral, q4h PRN, 2.5 mg at 03/22/25 1728 OR oxyCODONE (Roxicodone) immediate release tablet 5 mg, 5 mg, Oral, q4h PRN, Miguel Hui, DO, 5 mg at 03/24/25 0525 piperacillin-tazobactam (Zosyn) 4,500 mg in sodium chloride 0.9 % 100 mL IVPB Mini-Bag Plus, 4,500 mg, IntraVENous, q6h, Raffi Paulino MD, Last Rate: 33.3 mL/hr at 03/24/25 0859, 4,500 mg at 03/24/25 0859 polyethylene glycol (PEG) 3350 (Miralax) packet 17 g, 17 g, Oral, Daily PRN, Miguel Wilcoxz, DO sodium chloride 0.9 % infusion, 250 mL/hr, IntraVENous, PRN, Ross G AVERY Lutz trospium (Sanctura) tablet 20 mg, 20 mg, Oral, qAM AC, Janet Garciaire, DO, 20 mg at 03/24/25 0525 * Norberto Cooper PharmD - 03/24/2025 7:36 AM EDT Vancomycin therapy has been discontinued by Brice Mota on 03/24/25. Thank you for the consult. Pharmacy signing off for vancomycin dosing. Norberto Cooper PharmD Date: 03/24/25 Time: 7:35 AM * Radha Montana PTA - 03/23/2025 3:36 PM EDT Images from the original note were not included. PHYSICAL THERAPY [facility] Treatment Note Name/MRN: Hanna Nelson ([id number]) Date of : 1940 Age: 84 y.o. Room/Bed: [facility] [facility] Discharge Recommendation: Halfway Facility Prior Level of Function Prior Level of ADL Function: Independent Prior Level of Mobility: Independent; Device: Front wheeled walker Prior Level of Transfers: Independent Assessment Patient is slowly progressing towards goals, most limited by pain. Patient is self limiting during session, requires consistent encouragement to participate and often yells out in pain with movement.Requires max assist for bed mobility and max [...] Tolerated Lines/Drains/Airways: PIV, purewick Overall Cognitive Status: WFL Overall Orientation Status: [...] yelling out in pain. Performed x3 from raisedEOB. Device(s) used: Front wheeled walker Balance During [...] TP) Variance: 10 (pain meds) Radha Montana PTA Cosigned by Jennifer Valdez PT at 03/24/2025 7:13 AM EDT * Ania Webb APRN - KYREE - 03/23/2025 1:07 PM EDT [facility] Geriatric Medicine Inpatient Consult Service Admission Date: 03/20/2025 Assessment Principal Problem: Closed fracture of left hip, initial encounter (HCC) Plan Fall -Multiple risk factors including decreased hearing, decreased vision, cognitive deficits, diabetes,acute illness, and possible medication side effect -Continue [...] son at bedside, plan is SNF at [facility] Cognitive impairment --Followed by [facility]. --Concern for Alzheimer's dementia --Son noted cognitive issues started about a year ago, worsening with time. --Lives home alone with strong support from her children and has private home health aids 2 hours aday/6 days a week --Per son, in process of moving patient to assisted living. --Follow up with [facility] as able-discussed with Hi-patient's son. Information added [...] BM unknown. Discussed with nurse today to offerpatient PRN Miralax --Possible medication contributions: PRN oxycodone-used [...] bills. Patient has not driven since May, familyhad driving concerns for patient. Short term memory is not very good. Family in process of looking to move patient to an assisted living. Interval History: Remains on telemetry. Patient today reports she slept okay last night. Denies anypain. Reports that she has not been out [...] Left CMN on 03/21, WBAT -seen by event decorator and designer, recommend fruit punch jamie BID -s/p 1 [...] 180 03/23: Vitamin D 45 03/22: Vitamin P05=442 03/23: Seen by OT, recommend SNF. 03/22: [...] for abdominal distention, abdominal pain, constipation, diarrhea, nauseaand vomiting. Genitourinary: Negative for difficulty urinating and [...] NAD. Talkative and engaging. Son came in duringvisit HENT: Right Ear: External ear normal. Left [...] in the hospital. Alert and oriented to person,month and know she is at the hospital. [...] 1.71 03/14/2025 Lab Results Component Value Date [id number] 231 03/22/2025 Lab Results Component Value Date VITD25 45 03/23/2025 Reviewed: allergies, previous encounters, active problem lists, medications, and labs [1] Current Facility-Administered Medications: acetaminophen (Tylenol) tablet 1,000 mg, 1,000 mg, Oral, TID, Raffi Paulino MD, 1,000 mg at apixaban (Eliquis) tablet 5 mg, 5 mg, Oral, BID, Brice Mota MD, 5 mg at 03/23/25913 atorvastatin (Lipitor) tablet 20 mg, 20 mg, [...] mg, IntraVENous, q4h PRN, 0.25 mg at 03/23/25918OR [DISCONTINUED] HYDROmorphone (Dilaudid) injection 0.5 mg, 0.5 mg, IntraVENous, q4h PRN, Aramis Hui, DO, 0.5 mg at 03/22/25 0707 insulin glargine (Lantus) injection 26 Units, 26 Units, SubCUTAneous, Nightly, Janet Rosemarie, DO,26 Units at 03/22/252050 Insulin Lispro (Humalog) injection 0-12 Units, 0-12 Units, SubCUTAneous, TID WC, 6 Units at 03/23/25 1253 AND Insulin Lispro (Humalog) injection 0-12 Units, 0-12 Units, SubCUTAneous, Nightly, Raffi Paulino MD, 4 Units at 03/22/252050 Lactobacillus 0.05-0.05 MG 4 tablet, 4 tablet, Oral, Daily, Janet Rosemarie, DO, 4 tablet at 03/23/25 0932 levothyroxine (Synthroid, Levoxyl) tablet 25 mcg, 25 mcg, Oral, qAM AC, Janet Rosemarie, DO, 25 mcgat 03/23/25 0530 melatonin tablet 3 mg, 3 mg, Oral, Nightly PRN, Ania Webb APRN - PSYCHOLOGIST [employer]IVATE [employer]ICE metoprolol tartrate (Lopressor) injection 5 mg, 5 [...] PRN, Miguel Hui DO, 5 mg at 03/23/25 0530 piperacillin-tazobactam (Zosyn) 4,500 mg in sodium chloride 0.9 % 100 mL IVPB Mini-Bag Plus, 4,500 mg, IntraVENous, q6h, Raffi Paulino MD, Stopped at 03/23/25 1221 polyethylene glycol (PEG) 3350 (Miralax) packet 17 g, 17 g, Oral, Daily PRN, Miguel Hui, DO sodium chloride 0.9 % infusion, 250 mL/hr, IntraVENous, PRN, Ross G Beverly, GINNER HELPER trospium (Sanctura) tablet 20 mg, 20 mg, Oral, qAM AC, Janet Houston DO, 20 mg at 03/23/25 0530 * Brice Mota MD - 03/23/2025 11:46 AM EDT Hospitalist Progress Note Subjective: Admit Date: 03/20/2025 PCP: Dorohty Medrano Room#: H-6136/H-6136 A Chief Complaint Patient presents with Fall Hip Pain Left hip pain Brief Hospital course: Per previous providers note: "Patient is an 84-year-old female with past [...] -1350 ml LABS: CBC: Recent Labs 03/21/25 1745 03/22/25 0116 03/22/25 [...] 11 9 9 LIVER PROFILE: Recent Labs 03/21/25 1745 03/22/25 [...] Contact: Hi Nelson Relation: Son Preferred language: Indonesian Clammer needed? No Secondary Emergency Contact: Melba Black [employer] Relation: Daughter Brice Bellojudithlisa MD Svetlana Division of Hospital Medicine Inpatient Medical Services/[facility] [1] Past Medical History: Diagnosis Date Arthritis [...] Diabetes mellitus (HCC) Hyperlipidemia Hypertension Hypothyroidism Neuropathy * Ron Dunbar OT - 03/23/2025 10:29 AM EDT Images from the original note were not included. OCCUPATIONAL THERAPY Formerly [facility] Initial Evaluation Name/MRN: Hanna Nelson ([id number]) Evaluation Date: 03/23/2025 Date of : 1940 Admission Date: 03/20/2025 11:09 AM Age: 84 y.o. [facility] Discharge Recommendation: Halfway Facility Other: Continue to assess Assessment IMPRESSION: [...] femur fracture with subtrochanteric extension and s/p LCMN on 03/21/25. Performance Deficits /Impairments: Increased Pain, [...] Closed fracture of left hip, initial encounter ([facility]) 03/20/2025 Atrial fibrillation with rapid ventricular response ([facility]) 03/12/2025 Sepsis ([facility]) 01/26/2025 Confusion 12/02/2024 Pes planus of both feet 10/16/2024 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 10/16/2024 Non-pressure chronic ulcer of other part of right foot with necrosis of muscle ([facility]) 10/16/2024 Diabetic ulcer of right foot associated with diabetes mellitus due to underlying condition, with necrosis of muscle ([facility]) 10/09/2024 Uncontrolled type 2 diabetes mellitus with hyperglycemia ([facility]) 09/18/2024 Medical Precautions: No active isolations Proper [...] Responsibilities: Independent Receives Help From: None Active Transportation Modeler: N/A Prior Level of Function Prior Level of ADL Function: Independent Prior Level of Mobility: Independent; Device: Rollator Prior Level of Transfers: Independent Objective ADLs ADL's not directly performed during session due to pain and pt declining. Pt is currently Max A forLB dressing and Mod-Min A for UB dressing [...] of Care, Precautions, ADL Adaptive Strategies, Transfer Training,Orientation, Equipment, Fall Prevention Education, Discharge Recommendations, and [...] Toileting Patient will complete toileting tasks at [facility] with min assist. Start: 03/23/25 Expected End: 04/20/25 Transfers Patient will complete functional transfer with least restrictive device with min assist in order toprepare for ambulation. Start: 03/23/25 Expected End: 04/20/25 Patient will perform bed mobility with min assist in order to improve independence and prepare for out of bed mobility. Start: 03/23/25 Expected End: 04/20/25 Therapy Time Individual Co-Treatment Co-Evaluation Time In 916 Time Out 0939 Minutes 22 Ron Dunbar OT Patient's Occupational Therapy Plan of Care supervision is transferred to a [facility] Therapy Services Occupational Therapist. Goals and/or treatment plan was established in collaboration with patient/family/other representatives. [1] Past Medical History: Diagnosis Date Arthritis Atrial fibrillation (HCC) Diabetes mellitus (HCC) Hyperlipidemia Hypertension Hypothyroidism Neuropathy [2] Past Surgical History: Procedure Laterality Date BACK SURGERY CHOLECYSTECTOMY * Norberto Cooper PharmD - 03/23/2025 7:30 AM EDT Pharmacy to Dose Vancomycin - Progress Note Lab Results Component Value Date CREATININE 1.32 (H) 03/23/2025 BUN 28 (H) 03/23/2025 WBC 8.8 03/23/2025 VANCOTROUGH 17.7 03/23/2025 Doses, serum creatinine, and vancomycin levels interfaced automatically to [employer] and data has been analyzed and interpreted. [...] Clinical Pharmacist Available via Secure Chat * Nic Santoro MD - 03/23/2025 7:20 AM EDT Orthopedic Progress Note Name: Hanna Nelson Date:03/23/2025 Attending:Brice Mota MD Subjective No events o/n. Patient doing well. States her pain has been fairly controlled. Denies any numbness or tingling in her leg. Denies fevers, and chills. All questions answered. States that she has not yet ambulated or worked with therapy secondary to pain. She was encouraged to work with therapy todayand is planning to go to a SNF. [...] Clean/Dry/Intact SILT: Saphenous/Superficial Peroneal/Deep Peroneal/Tibial/Sural distributions Motor: +Dorsiflexion/Plantarflexion/Great toe extension Pulses: Palpable DP LABS: Recent [...] today Nic Santoro MD Orthopaedic Surgery PGY2 * Loren Valencia, PT - 03/22/2025 2:27 PM EDT Images from the original note were not included. PHYSICAL THERAPY [facility] Initial Evaluation Name/MRN: Hanna Nelson ([id number]) Evaluation Date: 03/22/2025 Date of : 1940 Admission Date: 03/20/2025 11:09 AM Age: 84 y.o. [facility] Discharge Recommendation: Halfway Facility Assessment IMPRESSION: Pt admitted for below. Pt is WBAT and ROM as tolerated on LLE. 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 Pt is very limited by left hip pain (RN recently gave pain medication).Pt has gross weakness on LLE > RLE. Pt is only able to tolerated minimal bed mobility. Pt is unable to stand up or sit up on the side of the bed. Recommend SNF. 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 Pt motivated to get up but [...] Raw Score (No Stairs) : 5 [facility] Score: Bed activity Plan Pt would [...] of Care supervision is transferred to a [facility] Therapy Services Physical Therapist. Goals and/or treatment plan was established in collaboration with patient/family/other representatives. [1] Past Medical History: Diagnosis Date Arthritis Atrial fibrillation (HCC) Diabetes mellitus (HCC) Hyperlipidemia Hypertension Hypothyroidism Neuropathy [2] Past Surgical History: Procedure Laterality Date BACK SURGERY CHOLECYSTECTOMY * Radha Núñez RD - 03/22/2025 2:26 PM EDT Nutrition Assessment Type and Reason for Visit: Initial, Positive Nutrition Screen Nutrition Recommendations/Plan: Current diet is regular. Recommend 4 CHO Control (60 gm/meal) to assist with BG control (recent BG 262, 220, 284, 299, 201, 221, 233). Per MNT protocol will send wound healing supplement fruit punch Jamie BID (1 pkt provides 95 kcals,2.5 gm protein, 300 mg Vitamin C) Please [...] Appetite and po intake have been good. Shecannot recall what she ate this am and awaiting lunch. She states that current weight is 200# and weight may vary a little bit. Stated last BM was day before surgery. NKFA. Estimated Daily Nutrient Needs: Energy Requirements Based On: Kcal/kg Weight Used for Energy Requirements: [place] Weight for Energy Calculation (kg): 70 kg Total Energy Requirements (kcals/day): 4866-9810 kcals per day (25-30) Weight Used for Protein Requirements: [place] Weight in Kg Used for Protein Requirements: [...] 90.7 kg (200 lb) (stated on 03/20/25) [place] Body Weight (lbs) (Calculated): 154 lbs [place] Body Weight (Kg) (Calculated): 70 kg Weight [...] at this time Radha Núñez RD Contact: *[phone] [1] [Held by provider] apixaban, 5 mg, [...] oxyCODONE, polyethylene glycol (PEG) 3350, sodium chloride * Raffi Paulino MD - 03/22/2025 11:32 AM EDT Hospitalist Progress Note - [facility] - [employer] [facility] [employer] ([facility]) 03/22/2025 11:32 AM [phone]: Please page me for patient care issues. [phone]: Please page [facility] Hospitalist - [facility] for any issues. Subjective and Objective: Admit Date: 03/20/2025 PCP: Dorothy Medrano Chief Complaint Patient presents with Fall Hip Pain Left hip pain Hospital course: Per HPI: "Patient is an 84-year-old female with past medical history of atrial fibrillation, type 2diabetes, hyperlipidemia, hypertension, hypothyroidism, CKD stage III, peripheral [...] s/p 1u prbc. No correlating symptoms, hemolysis workupnegative. Discussed imaging with ortho but suggested to [...] with intramedullary nail insertion 03/21. Messaged by PIPE TESTER due to hemodynamic instability. Morning of surgery pt hypotensive to SBP 80s, given 50g IV albumin. OR report with 100cc EBL. Postop in PACU pt BP similarly low to SBP 70s-80s with tachycardia [id number]. Treated with IV albumin 50g, IVF, ephedrine. [...] 25mg q8h, cardiology consulted. h/h q8h, no obvioussource of bleeding so will monitor. Holding eliquis for now. Adult diet Regular Dietary Orders (From admission, onward) Start Ordered 03/21/251556 Adult diet Regular Diet effective now Question: Diet type Answer: Regular 03/21/25 1556 I/O last 3 completed shifts: In: 4488 (49.5 mL/kg) [I.V.:4188 (46.2 mL/kg); Blood:300] Out: 1825 (20.1 mL/kg) [Urine:1800 (0.6 mL/kg/hr); Blood:25] Weight: 90.7 kg @IODETAILS@ @[id number]@ Medications: Continuous Meds[1] Scheduled Meds[2] Recent Labs [...] "CHOL" No results found for: "PHART", "PO2ART", "IXY4MRK" Recent Labs 03/20/25 2140 INR 1.1 Recent [...] sustained with rate control. -03/21 messaged by PIPE TESTER due to hemodynamic instability. Morning of surgery [...] marrow response. Ordered ferritin, B12, folate. If nocorrectable lab abnormalities would consult heme. Uncontrolled type [...] - Date - tbd - Location - [facility] - Pending the following - PT/OT, clinical course Total time spent (which include face to face and non face to face encounters) in minutes: 51 Raffi Paulino MD Extended Emergency Contact Information Primary Emergency Contact: Hi Nelson Relation: Son Preferred language: Indonesian Clammer needed? No Secondary Emergency Contact: Melba Black [facility] [employer] Relation: Daughter Raffi Paulino MD Division of Hospitalist Medicine Inpatient Medical Services/[facility] [1] lactated Ringer's, 75 mL/hr, Last Rate: 75 mL/hr (03/21/25 1838) [2] [Held by provider] apixaban, 5 mg, [...] qAM AC vancomycin, 1,000 mg, IntraVENous, q24h * Norberto Cooper PharmD - 03/22/2025 10:01 AM EDT Pharmacy to Dose Vancomycin - Progress Note Lab Results Component Value Date CREATININE 1.45 (H) 03/22/2025 BUN 37 (H) 03/22/2025 WBC 9.1 03/22/2025 VANCOTROUGH 9.9 01/29/2025 Doses, serum creatinine, and vancomycin levels interfaced automatically to [employer] and data has been analyzed and interpreted. [...] Clinical Pharmacist Available via Secure Chat * Jennifer Kenny MD - 03/22/2025 4:33 AM EDT Orthopedic Progress Note Name: Hanna Nelson Date:03/22/2025 [...] Clean/Dry/Intact SILT: Saphenous/Superficial Peroneal/Deep Peroneal/Tibial/Sural distributions Motor: +Dorsiflexion/Plantarflexion/Great toe extension Pulses: Palpable DP LABS: Recent [...] MD Orthopaedic Surgery PGY-2 4:33 AM 03/22/2025 * Raffi Paulino MD - 03/21/2025 10:43 AM EDT Hospitalist Progress Note - [facility] - Acute [facility] ([facility]) 03/21/2025 10:43 AM [phone]: Please page me for patient care issues. [phone]: Please page [facility] Hospitalist - [facility] for any issues. Subjective and Objective: Admit Date: 03/20/2025 PCP: Dorothy Medrano Chief Complaint Patient presents with Fall Hip Pain Left hip pain Hospital course: Per HPI: "Patient is an 84-year-old female with past medical history of atrial fibrillation, type 2diabetes, hyperlipidemia, hypertension, hypothyroidism, CKD stage III, peripheral [...] with intramedullary nail insertion 03/21. Messaged by PIPE TESTER due to hemodynamic instability. Morning of surgery pt hypotensive to SBP 80s, given 50g IV albumin. OR report with 100cc EBL. Postop in PACU pt BP similarly low to SBP 70s-80s with tachycardia [id number]. Treated with IV albumin 50g, IVF, ephedrine. [...] 25mg q8h, cardiology consulted. h/h q8h, no obvioussource of bleeding so will monitor. Holding eliquis for now. No diet orders on file No intake/output data recorded. @IODTAYLORILS@ @[email or web address]@ Medications: Continuous Meds[1] Scheduled Meds[2] Recent Labs 03/20/25 11503/20/25213903/21/25 0123 WBC 14.1* -- 12.8* HGB 10.3* 9.8 9.4* PLT 279 -- 289 Recent Labs 03/20/25 11503/20/253 03/21/25 0216 NA 140 135* 136 K 5.0 4.5 4.5 CL 109* 106 107 CO2 16* 20* 18* BUN 43* 41* 38* CREATININE 1.70* 1.32* 1.40* GLUCOSE 350* 216* 201* No results for input(s): "AST", "ALT", "BILITOT", "ALKPHOS" in the last 72 hours. No lab exists for component: "ALB" No results found for: "TRIG", "HDL", "LDLCALC", "CHOL" No results found for: "PHART", "PO2ART", "GRF5OMO" Recent Labs 03/20/252139 INR 1.1 Recent Labs 03/20/25 1159 CKTOTAL [...] + R diabetic foot ulcer. Prev cultures 01/26/25bacteroides fragilis + MSSA. Ordered empiric abx. Afib RVR (on eliquis) Technically severe sepsis with hypotension, did not improve with Fib rate control. Possibly hemodynamic instability related to afib RVR vs anemia of unknown etiology Lactic acid elevation Acute anemia, no evident bleeding, incremented appropriately s/p 1u prbc. Pending hemolytic workup. -intertrochanteric femur fracture s/p ORIF with intramedullary nail insertion 03/21. Messaged by PIPE TESTER due to hemodynamic instability. Morning of surgery pt hypotensive to SBP 80s, given 50g IV albumin. OR report with 100cc EBL. Postop in PACU pt BP similarly low to SBP 70s-80s with tachycardia [id number]. Treated with IV albumin 50g, IVF, ephedrine. [...] 25mg q8h, cardiology consulted. h/h q8h, no obvioussource of bleeding so will monitor. Holding eliquis [...] - Date - tbd - Location - [facility] - Pending the following - PT/OT, clinical [...] Contact: Hi Nelson Relation: Son Preferred language: Indonesian Clammer needed? No Secondary Emergency Contact: Melba Black [facility] [employer] Relation: Daughter Raffi Paulino MD Division of Hospitalist Medicine Inpatient Medical Services/[facility] [1] lactated Ringer's, 125 mL/hr [2] [Transfer [...] Hold] trospium, 20 mg, Oral, qAM AC * Golden Collado MD - 03/21/2025 9:23 AM EDT -Operative plans: No further plans for surgery [...] Collado M.D. Orthopaedic Surgery PGY-3 03/21/2025 \\ * Alma Delia Bernardo MD - 03/21/2025 3:47 AM EDT Images from the original note were not included. Ortho Progress Note Patient: Hanna Nelson Date of : 1940 Acct: [id number] PCP: Dorothy Medrano Date of Admission: 03/20/2025 Date of Service: Pt seen/examined on 03/21/2025 SUBJECTIVE: No acute events overnight. Resting comfortably in bed. Pain well controlled. Denies paresthesias. Denies CP/SOB. Denies fevers or chills. Understands plan for surgery today and has no further questions. OBJECTIVE: General: alert and oriented to person, place and time, well-developed and well- nourished, in no acute distress VITALS: BP 143/66 (BP Location: Right arm, Patient Position: Lying) Pulse 115 Temp 36.6 C (97.9F) (Temporal) Resp 12 Ht 1.797 m (5' [...] clearance in case of OR, page ortho care coordination manager with clearance status Alma Delia Bernardo MD Orthopaedic Surgery PGY-2 Epic Chat documented in this [facility]08-13-2025 Nurse Note* Sonja Domingo RN - 03/24/2025 3:54 PM EDT H6 Discharge Note Patient Name: Hanna Nelson : 1940 Pt IV removed, Report called to [facility] and spoke to Ranjan. No further questions. Physical Examination: Vitals: 03/24/25 1221 BP: 122/80 Pulse: (!) 125 Resp: 16 Temp: 36.1 C (97 F) SpO2: 97% [id number] Nurse Note* Sonja Domingo RN - 03/24/2025 3:54 PM EDT H6 Discharge Note Patient Name: Hanna Nelson : 1940 Pt IV removed, Report called to [facility] and spoke to Ranjan. No further questions. Physical Examination: Vitals: 03/24/25 1221 BP: 122/80 Pulse: (!) 125 Resp: 16 Temp: 36.1 C (97 F) SpO2: 97% * Isabel Orta RN - 03/21/2025 7:00 PM EDT Attempted x 2 nurses to obtain two sets of blood cultures but was unsuccessful. Notified rapid to help obtain blood culures x 2. Culture of the R plantar diabetic ulcer cultured. * Arelis Mueller RN - 03/20/2025 8:25 PM EDT Pts son present during admission, pts son stated he will notify pts PCP of admission to [facility]. documented in this [facility]08-13-2025 Miscellaneous Notes* Care Coordination - Unknown Case Management - 03/24/2025 3:22 PM EDT Patient Choice Patient Name: HANNA NELSON Date of : 1940 All Providers Sent [facility]: [phone] Address: [address] [place] [address] * Care Coordination - Alejandrina Aguilar - 03/24/2025 3:21 PM EDT MAR & Discharge med list transmitted and 7000 in HENs to [facility] via [facility] per TCC request. * Care Coordination - Kayla Rosa RN - 03/24/2025 3:01 PM EDT Care Management Progress Note Short Medical why still here: Medical stability for discharge to snf Planned Discharge Disposition: Halfway Facility. [facility] able to accept. Active discharge order noted. CONTROL ENGINEER tasked to complete 7000 and send DCPW. Roundtrip utilized for transport. Dimitris Rae to transport at 5pm. TCC called son Hi and made him aware of transfer to [facility] at 5pm. All aware. Barriers/Today we still Wait: Attending completion of discharge workflow, Clinical stability. Transfer at 5pm. Length of Stay (Days): 4 GMLOS: 9.6 * Home Care - Sharona Denton RN - 03/24/2025 11:58 AM EDT Noted dc plan for SNF placement, updated pt's home care agency via Careport of plan to dc to SNF. Home care signing off at this time. * Care Coordination - Alejandrina Aguilar - 03/23/2025 2:03 PM EDT Referral placed to SNF [facility] via [facility]port per TCC request. Await review and response regarding ability to accept. TCC notified. * Care Coordination - Jennifer Swift RN - 03/23/2025 9:21 AM EDT Care Management Progress Note Short Medical why still here: Spoke with Pt, introduced self/role. Explained to patient that PT has recommended SNF placement, PTis agreeable, but wantes her son Hi to make the decision of where to go. TCC called Hi, , he would like his mother to go to [facility], but he would like me to wait [id number] today to put the referral in. Planned Discharge Disposition: Halfway Facility Barriers/Today we still Wait: Attending completion of discharge workflow, Clinical stability, Patient/caregiver facility choice Length of Stay (Days): 3 GMLOS: 9.6 tasked CONTROL ENGINEER to send a referral to [facility]. * Care Coordination - Faby Manzo - 03/22/2025 4:32 PM EDT Social work introduced self to patient. Social work completed 30 day readmission survey at bedside with patient. * Care Coordination - Jennifer Swift RN - 03/22/2025 4:04 PM EDT Care Management Progress Note Short Medical why still here: Pt on H6 post op ORIF, FRACTURE, FEMUR. PT/OT needs to see for recommendations 1 unit of blood over night. Planned Discharge Disposition: Halfway Facility Barriers/Today we still Wait: Administering IV medications, Attending completion of discharge workflow, Clinical stability Length of Stay (Days): 2 GMLOS: 9.6 * Home Care - Sharona Denton RN - 03/22/2025 3:21 PM EDT Spoke with pt, she was unsure what home care agency she is active with. Son verified home care agency is [facility]; referral started in [facility] to verify services, notify themof admission and keep them updated on dcp * Perioperative Nursing Note - Trung Orellana RN - 03/21/2025 3:30 PM EDT BP has improved with blood product. Medicine team at bedside to assess pt, states she looks better.Updated son Hi. Called report and in for transport. * Perioperative Nursing Note - Trung Orellana RN - 03/21/2025 1:35 PM EDT Unit of PRBC hanging, pt alert and talking. * Perioperative Nursing Note - Trung Orellana RN - 03/21/2025 1:00 PM EDT Updated son Hi over phone on status in pacu * Perioperative Nursing Note - Trung Orellana RN - 03/21/2025 12:30 PM EDT Order received for blood, unit released to blood bank. Pt awake and alert at this time, carrying conversation. * Perioperative Nursing Note - Trung Orellana RN - 03/21/2025 12:00 PM EDT Communicated critical lab Hgb 6.[address] Jackson, Dr Canales and Dr Collado, awaiting further orders. * Perioperative Nursing Note - Trung Orellana RN - 03/21/2025 11:[address] Jackson of BP, order for h+h received, attempting to place second IV and obtain bloodwork * Perioperative Nursing Note - Trung Orellana RN - 03/21/2025 11:[address] Jackson of BP, order received for 25mg IM Ephedrine. * Perioperative Nursing Note - Trung Orellana RN - 03/21/2025 10:15 AM EDT Second bag of albumin hanging per order * Perioperative Nursing Note - Trung Orellana RN - 03/21/2025 9:[address] Jackson of hypotension, orders for albumin received * Perioperative Nursing Note - Trung Orellana RN - 03/21/2025 9:30 AM EDT Post-op x-rays done, pt tolerated well, resting with eyes closed, awakens to voice. * Op Note - Willi Sullivan MD - 03/21/2025 7:46 AM EDT Pre-operative Diagnosis: Left IT femur fracture Post-operative Diagnosis: Same Procedure: Intramedullary Nailing Left Femur (CPT 04549) Components used: [employer] Intertan IMN, [...] above cephalomedullary nail. History of present illness: aHnna is a 84 y.o. female admitted on [...] patient's ASA was verified by the nurse assembly room supervisor and the anesthesiastaff. Fire risk was assessed. [...] position of the nail and lag/compression screws. Sdt-Bsgj-Tldztdmq was felt to be less than 25 [...] an outpatient in 2 weeks please call [phone] to make an appointment Any questions please page Ortho pager (resident care coordination manager) or call my office at [phone] documented in this encounterSCleveland Clinic Akron [id number] Progress note* Care Coordination - Unknown Case Management - 03/24/2025 3:22 PM EDT Patient Choice Patient Name: HANNA NELSON Date of : 1940 All Providers [facility] Phone: [phone] Address: [address] [place] [address] [place] [id number] Progress note* Care Coordination - Alejandrina Aguilar - 03/24/2025 3:21 PM EDT MAR & Discharge med list transmitted and 7000 in HENs [facility]CC [facility]. [place] [id number] Progress note* Care Coordination - Kayla Rosa RN - 03/24/2025 3:01 PM EDT Care Management Progress Note Short Medical why still here: Medical stability for discharge to snf Planned Discharge Disposition: Halfway Facility. [facility] able to accept. Active discharge order noted. CONTROL ENGINEER tasked to complete 7000 and send DCPW. Roundtrip utilized for transport. Dimitris Rae to transport at 5pm. TCC called son Hi and made him aware of transfer to [facility] at 5pm. All aware. Barriers/Today we still Wait: Attending completion of discharge workflow, Clinical stability. Transfer at 5pm. Length of Stay (Days): 4 GMLOS: 9.6 [facility] [id number] [facility]08-13-2025 Hospital course Narrative* Brice Mota MD - 03/24/2025 2:24 PM EDT Discharge Summary Hanna Nelson : 1940 ADMIT DATE: 03/20/2025 DISCHARGE DATE: 03/24/2025 PRIMARY CARE PHYSICIAN: Dorothy Medrano VISIT STATUS: Admission CODE STATUS: Full Code DISCHARGE DIAGNOSES: Principal Problem: Closed fracture of left hip, initial encounter ([facility]) HOSPITAL COURSE: Patient is an 84-year-old female [...] metoprolol, naloxone, ondansetron ODT OR ondansetron, oxyCODONE ORoxyCODONE, polyethylene glycol (PEG) 3350, sodium chloride Continuous [...] XR foot 1 or 2 views right [[id number]] Collected: 03/21/252242 Order Status: Completed Updated: 03/21/252248 [...] positioning. Report Dictated on Electronically Signed By: Priscial Miramontes MD Electronically Signed Date/Time: 03/21/2025 10:48 PM EDT XR femur left 2+ views [[id number]] Collected: 03/21/25 0950 Order Status: Completed Updated: [...] GUIDANCE OR USE ONLY - NON RESULTABLE [[id number]] Resulted: 03/21/25 131 Order Status: Completed Updated: 03/21/251310 Narrative: There is no interpretation needed for this exam. XR femur left 2+ views [[id number]] Collected: 03/20/251938 Order Status: Completed Updated: 03/20/251940 [...] 7:40 PM EDT SUMMA SPECIFIC POCUS ORDER [[id number]] Resulted: 03/20/25 1109 Order Status: Completed Updated: 03/20/25 1447 Narrative: Jennifer Perry DO 03/20/2025 2:47 PM SUMMA SPECIFIC POCUS ORDER Performed by: Jennifer Perry DO Authorized by: Jennifer Perry DO XR hip left 2 or 3 views [[id number]] Collected: 03/20/25 1324 Order Status: Completed Updated: 03/20/25 1332 Narrative: Patient Name: HANNA NELSON : 1940 [...] 1:30 PM EDT XR chest 1 view [[id number]] Collected: 03/20/25 1322 Order Status: Completed Updated: [...] EDT XR tibia fibula 2 views right [[id number]] Collected: 03/20/25 1331 Order Status: Completed Updated: 03/20/25 1334 Narrative: Patient Name: HANNA NELSON : 1940 [...] 1:33 PM EDT XR chest 1 view [[id number]] Collected: 03/12/25 1559 Order Status: Completed Updated: [...] 4 hours as needed for moderate pain (4- 6) for up to 5 days. CONTINUE taking these medications Alcohol Prep 70 % pads 1 Pad 3 times daily. atorvastatin 20 MG tablet Commonly known as: [email or web address] Blood Glucose Monitor System w/Device kit Check [...] Your Medications These medications were sent to [facility] - [place] [id number] [facility] [address] [facility] [address] cyanocobalamin 1000 MCG tablet melatonin 3 MG [...] Complexity: follow up within 7-14 calendar days (59411) [] Severe Complexity: follow up within 7 calendar days (17607) FOLLOW UP TESTING, PENDING RESULTS OR REFERRALS AT TRANSITIONAL CARE VISIT: [] Yes [] No PENDING STUDIES: DISPOSITION: Skilled Facility FACILITY/HOME CARE AGENCY NAME: Follow up with Willi Sullivan MD [address] [place] [address] Schedule an appointment as soon as possible for a visit in 1 week(s) for your post op check Della Greco, LAPIDARIST - PSYCHOLOGIST PRIVATE PRACTICE [address] [place] [phone] [facility] [address] [place] [address] Schedule an appointment as soon as possible for a visit in 4 week(s) follow up for cognitive impairment Adolfo Brooks MD [address] [place] [address] [facility] [address] Schedule an appointment as soon as possible [...] MD 03/24/2025, 2:24 PM documented in this [facility]08-13-2025 Patient's home Note* Home Care - Sharona Denton RN - 03/24/2025 11:58 AM EDT Noted dc plan for SNF placement, updated pt's home care agency via Careport of plan to dc to SNF. Home care signing off at this time. [facility] [id number] NoteReferral placed to SNF [facility] via [facility]port per TCC request. Await review and response regarding ability to accept. TCC notified. [facility]08-12-2025 Progress note* Care Coordination - Alejandrina Aguilar - 03/23/2025 2:03 PM EDT Referral placed to SNF [facility] via [facility]port per TCC request. Await review and response regarding ability to accept. TCC notified. [facility] [id number] Progress note* Care Coordination - Jennifer Swift RN - 03/23/2025 9:21 AM EDT Care Management Progress Note Short Medical why still here: Spoke with Pt, introduced self/role. Explained to patient that PT has recommended SNF placement, PTis agreeable, but wantes her son Hi to make the decision of where to go. TCC called Hi, , he would like his mother to go to [facility], but he would like me to wait [id number] today to put the referral in. Planned Discharge Disposition: Halfway Facility Barriers/Today we still Wait: Attending completion of discharge workflow, Clinical stability, Patient/caregiver facility choice Length of Stay (Days): 3 GMLOS: 9.6 tasked CONTROL ENGINEER to send a referral to [facility]. [facility] [id number] Progress note* Care Coordination - Faby Manzo - 03/22/2025 4:32 PM EDT Social work introduced self to patient. Social work completed 30 day readmission survey at bedside with patient. [facility] [id number] Progress note* Care Coordination - Jennifer Swift RN - 03/22/2025 4:04 PM EDT Care Management Progress Note Short Medical why still here: Pt on H6 post op ORIF, FRACTURE, FEMUR. PT/OT needs to see for recommendations 1 unit of blood over night. Planned Discharge Disposition: Halfway Facility Barriers/Today we still Wait: Administering IV medications, Attending completion of discharge workflow, Clinical stability Length of Stay (Days): 2 GMLOS: 9.6 [facility] [id number] Patient's home Note* Home Care - Sharona Denton RN - 03/22/2025 3:21 PM EDT Spoke with pt, she was unsure what home care agency she is active with. Son verified home care agency is [facility]; referral started in [facility] to verify services, notify themof admission and keep them updated on dcp [facility] [id number] Consult note* Ania Webb, ALEJANDRINA - PSYCHOLOGIST PRIVATE PRACTICE - 03/22/2025 1:56 PM EDTAssociated Order(s): IP CONSULT TO GERIATRICS [facility] Geriatric Medicine Inpatient Consult Service Admission Date: 03/20/2025 Admission Status: INPATIENT Chief Complaint: Fall Reason for Appointment Geriatrics consulted for "mechanical fall elderly c/b hip fx" Assessment & [...] ongoing daily PT/OT Cognitive impairment --Followed by [facility]. --Concern for Alzheimer's dementia --Son noted cognitive issues started about a year ago, worsening with time. --Lives home alone with strong support from her children and has private home health aids 2 hours aday/6 days a week --Per son, in process of moving patient to assisted living. --Follow up with [facility] as able-discussed with Hi-patient's son. Information added [...] peripheral neuropathy, diabetic foot ulcer presented to [facility] ED on 01/18/25 after falling last night. She lives alone and was unable to get up. She laid on the floor all night until homehealth nurse found her (being followed for the [...] yes Living situation: home alone in [facility]. Children help Assistive device: walker Dizziness: denies [...] started last admission) for rate control. If needed,can uptitrate. Okay to hold OAC temporarily, but [...] with caregiver: sonHi -patient moved up from [place] in May, -lives in [facility]. Recently hired private home health aid 2 [...] living. Advance Care Planning Healthcare Power of Parimutuel Ticket Cashier: Yes, amber Do Financial Power of Parimutuel Ticket Cashier: probably Hi, but patient is not for [...] Family Status Relation Name Status Father Carlos De Leon Alive Son Hi Nelson Alive No partnership [...] for abdominal distention, abdominal pain, constipation, diarrhea, nauseaand vomiting. Genitourinary: Negative for difficulty urinating and [...] 311 ms QTC Interval 462 ms P Eastman 0 degrees QRS Eastman -14 degrees T Wave Eastman 0 degrees NV Interval 0 ms POCT glucose meter Collection [...] AM Result Value Ref Range PRODUCT CODE S2859G60 Unit Number [id number] Unit ABO A Unit RH POS Crossmatch interpretation COMP Dispense Status Transfused Blood Expiration Date Product Blood Type 6200 Unit Volume 300 [...] Follow-up: will follow with you Ania Webb, LAPIDARIST - PSYCHOLOGIST PRIVATE PRACTICE 03/22/25 3:39 PM [1] Allergies Allergen Reactions Tape Rash [2] Current Facility-Administered Medications: acetaminophen (Tylenol) tablet 650 mg, 650 mg, Oral, q6h PRN, 650 mg at 03/22/25 0117 OR acetaminophen (Tylenol) suppository 650 mg, 650 mg, Rectal, q6h PRN, Janet Houston DO [Held by provider] apixaban (Eliquis) tablet [...] mg, 0.5 mg, IntraVENous, q4h PRN, Miguel Wilcoxz, DO, 0.5 mg at 03/22/25 0707 insulin glargine (Lantus) injection 26 Units, 26 Units, SubCUTAneous, Nightly, Janet Rosemarie, DO,26 Units at 03/21/25 2126 Insulin Lispro (Humalog) injection 0-12 Units, 0-12 Units, SubCUTAneous, TID WC, 6 Units at 03/22/25 1239 AND Insulin Lispro (Humalog) injection 0-12 Units, 0-12 Units, SubCUTAneous, Nightly, Raffi Paulino MD lactated Ringer's infusion, 75 mL/hr, IntraVENous, Continuous, Raffi Paulino MD, Last Rate: 75 mL/hrat 03/22/25 1349, 75 mL/hr at 03/22/25 1349 Lactobacillus 0.05-0.05 MG 4 tablet, 4 tablet, Oral, Daily, Janet Rosemarie, DO, 4 tablet at 03/22/25 0853 levothyroxine (Synthroid, Levoxyl) tablet 25 mcg, 25 mcg, Oral, qAM AC, Janet Rosemarie, DO, 25 mcgat 03/22/25 0605 metoprolol tartrate (Lopressor) injection 5 mg, 5 mg, IntraVENous, q5 min PRN, Raffi Paulino MD, 5 mg at 03/21/25 1619 metoprolol tartrate (Lopressor) tablet 25 mg, 25 mg, Oral, q8h, Raffi Paulino MD, 25 mg at 03/22/25 0847 naloxone (Narcan) injection 0.4 mg, 0.4 mg, IntraVENous, PRN, Miguel Hui, ondansetron ODT (Zofran-ODT) disintegrating tablet 4 mg, [...] g, 17 g, Oral, Daily PRN, Miguel Hui, sodium chloride 0.9 % infusion, 250 mL/hr, IntraVENous, PRN, Ross G Nelda, GINNER HELPER trospium (Sanctura) tablet 20 mg, 20 mg, [...] Son Hi Nelson Hypertension Son Hi Nelson [facility] [id number] Consult note* ALEJANDRINA Jules CNP - 03/22/2025 1:56 PM EDTAssociated Order(s): IP CONSULT TO GERIATRICS [facility] Geriatric Medicine Inpatient Consult Service Admission Date: 03/20/2025 Admission Status: INPATIENT Chief Complaint: Fall Reason for Appointment Geriatrics consulted for "mechanical fall elderly c/b hip fx" Assessment & Plan Principal Problem: Closed fracture of left hip, initial encounter ([facility]) Fall -Multiple risk factors including decreased vision, [...] ongoing daily PT/OT Cognitive impairment --Followed by [facility]. --Concern for Alzheimer's dementia --Son noted cognitive issues started about a year ago, worsening with time. --Lives home alone with strong support from her children and has private home health aids 2 hours aday/6 days a week --Per son, in process of moving patient to assisted living. --Follow up with [facility] as able-discussed with Hi-patient's son. Information added [...] peripheral neuropathy, diabetic foot ulcer presented to [facility] ED on 01/18/25 after falling last night. She lives alone and was unable to get up. She laid on the floor all night until homehealth nurse found her (being followed for the [...] yes Living situation: home alone in [facility]. Children help Assistive device: walker Dizziness: denies [...] started last admission) for rate control. If needed,can uptitrate. Okay to hold OAC temporarily, but [...] with caregiver: sonHi -patient moved up from [place] in May, -lives in [facility]. Recently hired private home health aid 2 [...] living. Advance Care Planning Healthcare Power of Parimutuel Ticket Cashier: Yes, amber Do Financial Power of Parimutuel Ticket Cashier: probably Hi, but patient is not for [...] Family Status Relation Name Status Father Carlos De Leon Alive Son Hi Nelson Alive No partnership [...] for abdominal distention, abdominal pain, constipation, diarrhea, nauseaand vomiting. Genitourinary: Negative for difficulty urinating and [...] 311 ms QTC Interval 462 ms P Eastman 0 degrees QRS Eastman -14 degrees T Wave Eastman 0 degrees NV Interval 0 ms POCT glucose meter Collection [...] AM Result Value Ref Range PRODUCT CODE P0739B42 Unit Number [id number] Unit ABO A Unit RH POS Crossmatch interpretation COMP Dispense Status Transfused Blood Expiration Date [id number] Product Blood Type 6200 Unit Volume 300 [...] results Follow-up: will follow with you Ania Webb APRN - KYREE 03/22/25 3:39 PM [1] Allergies Allergen Reactions [...] Units, 26 Units, SubCUTAneous, Nightly, Janet Padgettntire, DO,26 Units at 03/21/25 2126 Insulin Lispro (Humalog) injection 0-12 Units, 0-12 Units, SubCUTAneous, TID WC, 6 Units at 03/22/25 1239 AND Insulin Lispro (Humalog) injection 0-12 Units, 0-12 Units, SubCUTAneous, Nightly, Raffi Paulino MD lactated Ringer's infusion, 75 mL/hr, IntraVENous, Continuous, Raffi Paulino MD, Last Rate: 75 mL/hrat 03/22/25 1349, 75 mL/hr at 03/22/25 1349 Lactobacillus 0.05-0.05 MG 4 tablet, 4 tablet, Oral, Daily, Janet Garciaire, DO, 4 tablet at 03/22/25 0853 levothyroxine (Synthroid, Levoxyl) tablet 25 mcg, 25 mcg, Oral, qAM AC, Janet Houston, DO, 25 mcgat 03/22/25 0605 metoprolol tartrate (Lopressor) injection 5 [...] g, 17 g, Oral, Daily PRN, Miguel Hui DO sodium chloride 0.9 % infusion, 250 mL/hr, IntraVENous, PRN, Ross G Beverly, GINNER HELPER trospium (Sanctura) tablet 20 mg, 20 mg, [...] Son Hi Nelson Hypertension Son Hi Nelson * Adolfo Brooks MD - 03/22/2025 7:00 AM EDTAssociated Order(s): IP CONSULT TO CARDIOLOGY [facility] Cardiology Consult Note ATTESTATION: I, Dr. Brooks, [...] her follow up with us in the [place] office. She now presents with a mechanical [...] safe from surgical perspective. Adolfo Brooks MD [facility] Reason for Consult/Chief Complaint: afib rvr, hyoptension of uncertain etiology though pt asymptomatic Referring provider: Dr. Raffi Deng Established machine records units supervisor: N/A History of Present Illness: Hanna Nelson is a 84 y.o. female with afib, T2DM, HLD, HTN, hypothyroidism, CKD stage 3, pe/ripheral neuropathy, and chronic diabetic foot ulcer who presented to the hospital on 03/20/25 after tripping at home the night prior and being unable to get back up. She states that she did not hit her heador have LOC at that time. In the ER it was found that she had Left intertrochanteric femur fractureand she had a ORIF with intramedullary nail [...] overall she is doing well despite pain inL hip. She had decent sleep last night, but is still feeling slightly fatigued. She reports that her felt palpitations occur about 1-2 a week, and that she did not have any of them preceding her damaso 03/19. She has been having these occasional palpitations for some time now but is unable to say when they exactly began, although a note in her chart dated 10/04/20 mentions paroxysmal atrial fibrillation documented on 10/26/17. She is not currently seeing a machine records units supervisor. Assessment/Plan Hanna Nelson is a 84 y.o. [...] run. She also had a Hgb of 6.8and was given 1u prbc. Patient was asymptomatic during this time. Hypotension is unlikely due to cardiac concern and more likely is due some other cause such as recent surgery and/or anemia requiringtransfusion. - Continue to monitor BP - Pressors [...] 3rd serial troponin No results found for: "TROPDELTBASE" 4h Troponin HS (Serial 3rd Troponin) Date Value Ref Range Status 03/12/2025 6 <=14 ng/L Final Comment: 4h troponin (3rd troponin) samples collected between 1h 40 min and 2h and 20 min of the 2h troponincollection time can be utilized to interpret delta [...] 2h and 20 min of the 2h troponincollection time can be utilized to interpret delta troponins as per Summa algorithms. Samples collected outside this timeframe need to be interpreted clinically. Rising or falling troponin delta between 2 - 15 ng/L as compared to 2h troponin value requires further evaluation. No results found for: "TROPDELTSEC" Recent Labs 03/20/25 1159 03/20/25 2123 03/21/25 [...] found for: "CHOLHDL" No results found for: "LDLCHOLESTER" No results for input(s): "BNP" in the [...] mL/hr, Last Rate: 75 mL/hr (03/21/25 1838) * Brooke Fair, [facility] - 03/21/2025 7:27 PM EDT Images from the original note [...] creatinine, and vancomycin levels interfaced automatically to [employer] and data has been analyzed and interpreted. [...] RPh Clinical Pharmacist Available via Secure Chat * Willi Sullivan MD - 03/20/2025 7:19 PM EDT Images from the original note were not included. Ortho Consult Patient: Hanna Nelson Date of : 1940 Acct: [id number] PCP: Dorothy Medrano Date of Admission: 03/20/2025 [...] fitted with a right foot brace by [employer] that she is still getting used to. [...] each every 15 days. 12/24/24 Priscila Laguerre, LAPIDARIST - PSYCHOLOGIST PRIVATE PRACTICE gabapentin (Neurontin) 300 MG capsule Take 300 mg by mouth 2 times daily. Historical Provider, glucose blood test strip Use as instructed 09/17/24 09/17/25 Damian Loza, DO insulin degludec-liraglutide (Xultophy) 100-3.6 UNIT-MG/ML pen [...] Take by mouth every morning (before breakfast). HistoricalMD Elizabeth metFORMIN (Glucophage) 500 MG tablet Take 1 [...] time per week. 12/24/24 12/24/25 Priscila Laguerre, LAPIDARIST - PSYCHOLOGIST PRIVATE PRACTICE atenolol (Tenormin) 25 MG tablet Take 1 [...] clearance in case of OR, page ortho care coordination manager with clearance status Alma Delia Bernardo MD [...] to normal structures that can lead to group home problems of pain and/or dysfunction, need for additional procedures, painful or prominent hardware which could require removal, failure of fixation which would require revision,the possibility of fracture nonunion, malunion and late and/or chronic. In addition potentially life threatening complications (DVT, PE, LA, stroke, and even ) at the time [...] 300 mg, 300 mg, Oral, BID, Janet Garciaire, DO glucagon (human recombinant) injection 1 mg, [...] g, 17 g, Oral, Daily PRN, Janet Padgettntire, DO [START ON 03/21/2025] semaglutide (Ozempic) injection 0.5 mg, 0.5 mg, SubCUTAneous, Weekly, Janet Garciaire, DO [START ON 03/21/2025] trospium (Sanctura) tablet 20 mg, 20 mg, Oral, qAM AC, Janet Garciaire, DO [4] Family History Problem Relation Name Age of Onset Diabetes Father Ed Shue Hypertension Father Ed Shue Diabetes Son Hi Nelson Hypertension Son Hi Nelson documented in this [facility]08-11-2025 Consult note* Adolfo Brooks MD - 03/22/2025 7:00 AM EDTAssociated Order(s): IP CONSULT TO CARDIOLOGY [facility] Card[facility] Consult Note ATTESTATION: I, Dr. Brooks, [...] her follow up with us in the [place] office. She now presents with a mechanical [...] safe from surgical perspective. Adolfo Brooks MD FAC Reason for Consult/Chief Complaint: afib rvr, hyoptension of uncertain etiology though pt asymptomatic Referring provider: Dr. Raffi Deng Established machine records units supervisor: N/A History of Present Illness: Hanna Nelson is a 84 y.o. female with afib, T2DM, HLD, HTN, hypothyroidism, CKD stage 3, pe/ripheral neuropathy, and chronic diabetic foot ulcer who presented to the hospital on 03/20/25 after tripping at home the night prior and being unable to get back up. She states that she did not hit her heador have LOC at that time. In the ER it was found that she had Left intertrochanteric femur fractureand she had a ORIF with intramedullary nail [...] overall she is doing well despite pain inL hip. She had decent sleep last night, but is still feeling slightly fatigued. She reports that her felt palpitations occur about 1-2 a week, and that she did not have any of them preceding her damaso 03/19. She has been having these occasional palpitations for some time now but is unable to say when they exactly began, although a note in her chart dated 10/04/20 mentions paroxysmal atrial fibrillation documented on 10/26/17. She is not currently seeing a machine records units supervisor. Assessment/Plan Hanna Nelson is a 84 y.o. [...] run. She also had a Hgb of 6.8and was given 1u prbc. Patient was asymptomatic during this time. Hypotension is unlikely due to cardiac concern and more likely is due some other cause such as recent surgery and/or anemia requiringtransfusion. - Continue to monitor BP - Pressors [...] 3rd serial troponin No results found for: "TROPDELTBASE" 4h Troponin HS (Serial 3rd Troponin) Date Value Ref Range Status 03/12/2025 6 <=14 ng/L Final Comment: 4h troponin (3rd troponin) samples collected between 1h 40 min and 2h and 20 min of the 2h troponincollection time can be utilized to interpret delta [...] 2h and 20 min of the 2h troponincollection time can be utilized to interpret delta troponins as per [employer] algorithms. Samples collected outside this timeframe need to be interpreted clinically. Rising or falling troponin delta between 2 - 15 ng/L as compared to 2h troponin value requires further evaluation. No results found for: "TROPDELTSEC" Recent Labs 03/20/25115803/20/25212203/21/25 0216 03/22/25 0116 NA 140 135* 136 133* K 5.0 4.5 4.5 4.5 CL 109* 106 107 105 CO2 16* 20* 18* 19* BUN 43* 41* 38* 37* CREATININE 1.70* 1.32* 1.40* 1.45* EGFR 29.3* 39.6* 36.9* 35.4* Recent Labs 03/20/25115803/20/25213903/21/2512203/21/25 1147 03/21/25 1745 03/22/25 0116 WBC 14.1* [...] found for: "CHOLHDL" No results found for: "LDLCHOLESTER" No results for input(s): "BNP" in the [...] mL/hr, Last Rate: 75 mL/hr (03/21/25 1838) [employer] Phone: 1(365) 579-458908-10-2025 Consult note* Brooke Fair, [facility] - 03/21/2025 7:27 PM EDT Images from the original note [...] creatinine, and vancomycin levels interfaced automatically to [employer] and data has been analyzed and interpreted. [...] RPh Clinical Pharmacist Available via Secure Chat [facility] CenterGnuefi15-85-1200 Nurse Note* Isabel Orta RN - 03/21/2025 7:00 PM EDT Attempted x 2 nurses to obtain two sets of blood cultures but was unsuccessful. Notified rapid to help obtain blood culures x 2. Culture of the R plantar diabetic ulcer cultured. [facility] CenterOvvypf25-17-4187 Nurse Note* Perioperative Nursing Note - Trung Orellana RN - 03/21/2025 3:30 PM EDT BP has improved with blood product. Medicine team at bedside to assess pt, states she looks better.Updated son Hi. Called report and in for transport. [place] [id number] Nurse Note* Perioperative Nursing Note - Trung Orellana RN - 03/21/2025 1:35 PM EDT Unit of PRBC hanging, pt alert and talking. [address]Kcmtwq58-55-0874 Nurse Note* Perioperative Nursing Note - Trung Orellana RN - 03/21/2025 1:00 PM EDT Updated son Hi over phone on status in pacu [facility] CenterZkzsvc00-18-5554 Nurse Note* Perioperative Nursing Note - Trung Orellana RN - 03/21/2025 12:30 PM EDT Order received for blood, unit released to blood bank. Pt awake and alert at this time, carrying conversation. [facility] CenterMjhzpq97-12-6805 Nurse Note* Perioperative Nursing Note - Trung Orellana RN - 03/21/2025 12:00 PM EDT Communicated critical lab Hgb 6.[address] Jackson, Dr Canales and Dr Collado, awaiting further orders. [facility] CenterAxhvui02-78-6036 Note* Addendum Note - ALEJANDRINA Velasquez CRNA - 03/21/2025 11:55 AM EDT Addendum created 03/21/251154 by ALEJANDRINA Velasquez CRNA Intraprocedure Meds edited, Orders acknowledged in Narrator [facility] CenterYahebm06-36-8021 NoteAddendum created 03/21/251154 by ALEJANDRINA Velasquez CRNA Intraprocedure Meds edited, Orders acknowledged in [facility]08-10-2025 Miscellaneous Notes* Addendum Note - ALEJANDRINA Velasquez CRNA - 03/21/2025 11:55 AM EDT Addendum created 03/21/251154 by ALEJANDRINA Velasquez CRNA Intraprocedure Meds edited, Orders acknowledged in Narrator * Anesthesia Discharge Note - ALEJANDRINA Velasquez CRNA - 03/21/2025 9:45 AM EDT Patient: Hanna Nelson Procedure Summary Date: 03/21/25 Room / Location: [address] Operating Room Anesthesia Start: 745 Anesthesia Stop: 926 Procedure: ORIF, FRACTURE, FEMUR, INTERTROCHANTERIC, WITH INTRAMEDULLARY IMPLANT INSERTION (Left: Hip) Diagnosis: Closed fracture of left hip, initial encounter ([facility]) Surgeons: Willi Sullivan MD Responsible Provider: ALEJANDRINA [...] criteria has been met. documented in this encounterSCleveland Clinic Akron GeneralTdjzlj09-84-7139 Nurse Note* Perioperative Nursing Note - Trung Orellana RN - 03/21/2025 11:[address] Jackson of BP, order for h+h received, attempting to place second IV and obtain bloodwork [facility] CenterGfawgh97-50-3506 Nurse Note* Perioperative Nursing Note - Trung Orellana RN - 03/21/2025 11:[address] Jackson of BP, order received for 25mg IM Ephedrine. [facility] CenterHhgbgq74-72-2759 Hospital Discharge instructions* Discharge Instructions* Golden Collado MD - 03/21/2025 10:34 AM [...] to put full weight on your leg forwalking and other needs. -Weight bearing as tolerated [...] is clean and without drainage it is okto go without any bandaging. If it is [...] contact information is provided in your paperwork. * Discharge Instr - LAURA* Sonja Domingo RN - 03/23/2025 3:04 PM EDT Images from the original note were not included. Continuity of Care Form Patient Name: Hanna Nelson : 1940 Admit date: 03/20/2025 Discharge date: 03/24/2025 Code Status Order: Full Code Advance Directives: N Admitting Physician: Janet Houtson DO PCP: Dorothy Medrano Discharging Nurse: Sonja Domingo Discharging Hospital Unit/Room#: H-6136/H-6136 A Discharging Unit Emergency Contact: Extended Emergency Contact Information Primary Emergency Contact: Hi Nelson Relation: Son Preferred language: Indonesian Clammer needed? No Secondary Emergency Contact: Melba Black [facility] [place] Relation: Daughter Past Surgical [...] Dressing Total Toileting Total assistance Feeding Independent Registered Client Associate Independent Med Delivery no Wound Care Documentation [...] Date: 03/20/25 Discharging to Facility/ Agency Name: [facility] Address: [address] [place] [address] Fax: Dialysis Facility (if applicable) Name: Address: Dialysis Schedule: Phone: Fax: Physical Plant Employee/Furnace Hand signature: ICIAN SECTION Name: Hanna Nelson Prognosis: fair Condition at Discharge: stable Rehab Potential (if transferring to Rehab): fair Recommended Labs or Other Treatments After Discharge: CBC, CMP, Needs to get appointment with Cardiology, F/U with Ortho The individual is being admitted to a nursing facility directly from an [facility] or a unit of a [facility] that is not operated by or licensed by [facility] under section 5119.14 or 5160-3-15.1 5 The individual requires the level of services provided by a nursing facility for the condition for which he or she was treated in the hospital and, Physician Certification: I certify the above information and transfer of Hanna Nelson is necessary for the continuing treatment of the diagnosis listed and that she requires fci facility for less than 30 days. Update Admission H&P: No change in H&P PHYSICIAN SIGNATURE: documented in this [facility]08-10-2025 Nurse Note* Perioperative Nursing Note - Trung Orellana RN - 03/21/2025 10:15 AM EDT Second bag of albumin hanging per order [facility] CenterDbgyew89-07-2113 Procedure anesthesia Narrative* Procedure Summary Procedure Name Responsible Anesthesiologist Anesthesia Start Time Anesthesia Stop Time ORIF, FRACTURE, FEMUR, INTERTROCHANTERIC, WITH INTRAMEDULLARY IMPLANT INSERTION (Left: Hip) Marlon Jackson, DO 03/21/25 0746 03/21/25 0927 Events Date [...] RN ETT Placement Date: 03/21/25; Placement Time: 750 (created via procedure documentation); Type: ETT - single; Single Lumen Tube Size: 7 mm; Cuffed: Yes; Location: Oral; Placement Verification: Auscultation, Capnometry; Removal Date: 03/21/25; Removal Time: 91803/21/25 075 by ALEJANDRINA Velasquez CRNA 03/21/25918 by ALEJANDRINA Velasquez CRNA documented in this encounter [facility] CenterNxanjm89-32-4860 Note* Anesthesia Discharge Note - ALEJANDRINA Velasquez CRNA - 03/21/2025 9:45 AM EDT Patient: Hanna Nelson Procedure Summary Date: 03/21/25 Room / Location: [address] Operating Room Anesthesia Start: 745 Anesthesia Stop: 926 Procedure: ORIF, FRACTURE, FEMUR, INTERTROCHANTERIC, WITH INTRAMEDULLARY IMPLANT INSERTION (Left: Hip) Diagnosis: Closed fracture of left hip, initial encounter ([facility]) Surgeons: Willi Sullivan MD Responsible Provider: ALEJANDRINA [...] once all PACU criteria has been met. [facility] CenterKssvlq79-32-7261 Anesthesiology Postoperative evaluation and management note* Anesthesia Postprocedure Evaluation - ALEJANDRINA Velasquez CRNA - 03/21/2025 9:45 AM EDT Patient: Hanna Nelson Procedure Summary Date: 03/21/25 Room / Location: [address] Operating Room Anesthesia Start: 745 Anesthesia Stop: 926 Procedure: ORIF, FRACTURE, FEMUR, INTERTROCHANTERIC, WITH INTRAMEDULLARY IMPLANT INSERTION (Left: Hip) Diagnosis: Closed fracture of left hip, initial encounter ([facility]) Surgeons: Willi Sullivan MD Responsible Provider: ALEJANDRINA [...] opportunity for questions and acknowledgement of understanding. [employer] Work Phone: 1(883) 565-152108-10-2025 Nurse Note* Perioperative Nursing Note - Trung Orellana RN - 03/21/2025 9:[address] Jackson of hypotension, orders for albumin received [employer]08-10-2025 Surgical operation note* Anesthesia Postprocedure Evaluation - ALEJANDRINA Velasquez CRNA - 03/21/2025 9:45 AM EDT Patient: Hanna Nelson Procedure Summary Date: 03/21/25 Room / Location: [address] Operating Room Anesthesia Start: 745 Anesthesia Stop: 926 Procedure: ORIF, FRACTURE, FEMUR, INTERTROCHANTERIC, WITH INTRAMEDULLARY IMPLANT INSERTION (Left: Hip) Diagnosis: Closed fracture of left hip, initial encounter ([facility]) Surgeons: Willi Sullivan MD Responsible Provider: ALEJANDRINA [...] and Staff Patient location during procedure: Procedural Resident/SURFACE PLATE INSPECTOR: ALEJANDRINA Velasquez CRNA Performed: SURFACE PLATE INSPECTOR Patient Condition Indications for airway management: anesthesia [...] EDT Patient: Hanna Nelson Procedure Information Date/Time: 03/21/25 0730 Procedure: ORIF, FRACTURE, FEMUR, INTERTROCHANTERIC, WITH INTRAMEDULLARY IMPLANT INSERTION (Left: Hip) Location: [facility] OR [address] [place] [address] Operating Room Surgeons: Willi Sullivan MD Relevant [...] Hypertension Son Hi Nelson documented in this [facility]08-10-2025 Nurse Note* Perioperative Nursing Note - Trung Orellana RN - 03/21/2025 9:30 AM EDT Post-op x-rays done, pt tolerated well, resting with eyes closed, awakens to voice. [facility] CenterTflelm21-41-1578 Anesthesiology procedure note* Anesthesia Procedure Notes - ALEJANDRINA Velasquez CRNA - 03/21/2025 8:15 AM EDTAssociated Order(s): Airway Airway Date/Time: 03/21/2025 7:51 AM Reason: emergent Airway not difficult General Information and Staff Patient location during procedure: Procedural Resident/SURFACE PLATE INSPECTOR: ALEJANDRINA Velasquez CRNA Performed: SURFACE PLATE INSPECTOR Patient Condition Indications for airway management: anesthesia [...] 22 Number of attempts at approach: 1 [facility] CenterVlzxpy19-43-8788 [facility]08-10-2025 Procedure note* Op Note - Willi Sullivan MD - 03/21/2025 7:46 AM EDT Pre-operative Diagnosis: Left IT femur fracture Post-operative Diagnosis: Same Procedure: Intramedullary Nailing Left Femur (CPT 89962) Components used: [employer] IMN, [...] patient's ASA was verified by the nurse assembly room supervisor and the anesthesiastaff. Fire risk was assessed. [...] position of the nail and lag/compression screws. Rkq-Tijh-Ezpeuzxb was felt to be less than 25 [...] an outpatient in 2 weeks please call [phone] to make an appointment Any questions please page Ortho pager (resident care coordination manager) or call my office at [phone] [facility] CenterYmxeuy25-26-3811 Anesthesiology Preoperative evaluation and management note* Anesthesia Preprocedure Evaluation - Marlon Jackson DO - 03/21/2025 7:12 AM EDT Patient: Hanna Nelson Procedure Information Date/Time: 03/21/25729 Procedure: ORIF, FRACTURE, FEMUR, INTERTROCHANTERIC, WITH INTRAMEDULLARY IMPLANT INSERTION (Left: Hip) Location: [address] Operating Room Surgeons: Willi Sullivan MD [...] years ago. Her smoking use included cigarettes. Nas never used smokeless tobacco. ETOH: reports current [...] Son Hi Nelson Hypertension Son Hi Nelson [employer] Work Phone: [phone]) 566-229808-09-2025 History and physical note* Miguel Maynardramana Hui DO - 03/20/2025 8:47 PM EDT [...] file Stress: No Stress Concern Present (03/20/2025) [employer] [place] [employer] - Occupational Stress Questionnaire [...] Contact: Hi Nelson Relation: Son Preferred language: Indonesian Clammer needed? No Secondary Emergency Contact: Melba Black [facility] [place] Relation: Daughter [employer] Hanna Nelson : 1940 Primary Care Physician: Dorothy Medrano The patient and/or family/surrogate voluntarily agreed to participate in ACP services. Patient s cognitive capacity: Alert and oriented Code Status: [X] [FULL CODE - Continue all advanced life support: CPR,intubation,invasive procedures] [_] [DNR-CCA - DO NOT do CPR, intubation] [_] [DNR-NON GARMENT SEWING MACHINE OPERATOR - Comfort care only] [_] DNR form [...] Miguel Hui DO Division of Hospitalist Medicine [facility] [1] Past Medical History: Diagnosis Date [...] tablet, 4 tablet, Oral, Daily, Janet Houston DO [START ON 03/21/2025] levothyroxine (Synthroid, Levoxyl) tablet 25 mcg, 25 mcg, Oral, qAM AC, Maday, DO metoprolol tartrate (Lopressor) tablet 25 mg, 25 mg, Oral, BID, Janet Houston, DO ondansetron ODT (Zofran-ODT) disintegrating tablet 4 [...] Houston, [5] Allergies Allergen Reactions Tape Rash [facility] [employer] Phone: [phone] [facility]08-09-2025 History and physical note* Miguel Hui DO [...] file Stress: No Stress Concern Present (03/20/2025) [employer] [place] [employer] - Occupational Stress Questionnaire [...] Contact: Hi Nelson Relation: Son Preferred language: Indonesian Clammer needed? No Secondary Emergency Contact: BlackMelba [facility] [place] Relation: Daughter [employer] Hanna Nelson : 1940 Primary Care Physician: Dorothy Medrano The patient and/or family/surrogate voluntarily agreed to participate in ACP services. Patient s cognitive capacity: Alert and oriented Code Status: [X] [FULL CODE - Continue all advanced life support: CPR,intubation,invasive procedures] [_] [DNR-CCA - DO NOT do CPR, intubation] [_] [DNR-NON GARMENT SEWING MACHINE OPERATOR - Comfort care only] [_] DNR form [...] Miguel Hui DO Division of Hospitalist Medicine [facility] [1] Past Medical History: Diagnosis Date [...] 300 mg, 300 mg, Oral, BID, Janet Garciaire, DO glucagon (human recombinant) injection 1 mg, 1 mg, IntraMUSCular, PRN, Janet Garciaire, DO glucose oral gel 15 g, 15 g, Oral, PRN, Janet Padgettntire, DO insulin glargine (Lantus) injection 26 Units, 26 Units, SubCUTAneous, Nightly, Janet Garciaire, DO Insulin Lispro (Humalog) injection 0-6 Units, 0-6 Units, SubCUTAneous, TID WC AND Insulin Lispro (Humalog) injection 0-6 Units, 0-6 Units, SubCUTAneous, Nightly, Janet Houston, DO Lactobacillus 0.05-0.05 MG 4 tablet, 4 tablet, Oral, Daily, Janet Houston, DO [START ON 03/21/2025] levothyroxine (Synthroid, Levoxyl) tablet 25 mcg, 25 mcg, Oral, qAM AC, Estefanía, DO metoprolol tartrate (Lopressor) tablet 25 mg, 25 mg, Oral, BID, Janet Garciaire, DO ondansetron ODT (Zofran-ODT) disintegrating tablet 4 mg, 4 mg, Oral, q8h PRN OR ondansetron (Zofran) injection 4 mg, 4 mg, IntraVENous, q6h PRN, Janet Garciaire, DO polyethylene glycol (PEG) 3350 (Miralax) packet 17 g, 17 g, Oral, Daily PRN, Janet Garciaire, DO [START ON 03/21/2025] semaglutide (Ozempic) injection 0.5 mg, 0.5 mg, SubCUTAneous, Weekly, Janet Houston, DO [START ON 03/21/2025] trospium (Sanctura) tablet 20 mg, 20 mg, Oral, qAM AC, Janet Garciaire, DO [5] Allergies Allergen Reactions Tape Rash documented in this [facility]08-09-2025 Nurse Note* Arelis Martinez RN - 03/20/2025 8:25 PM EDT Pts son present during admission, pts son stated he will notify pts PCP of admission to [facility]. [facility] CenterSxefch43-04-2484 Consult note* Willi Sullivan MD - 03/20/2025 7:19 PM EDT Images from the original note were not included. Ortho Consult Patient: Hanna Nelson Date of : 1940 Acct: [id number] PCP: Dorothy Medrano Date of Admission: 03/20/2025 [...] fitted with a right foot brace by [employer] that she is still getting used to. [...] preference and is happy to see on-call [facility] surgeon. Patient ambulation status: mild difficulty and [...] each every 15 days. 12/24/24 Priscila Laguerre, ALEJANDRINA - PSYCHOLOGIST PRIVATE PRACTICE gabapentin (Neurontin) 300 MG capsule Take 300 [...] Take by mouth every morning (before breakfast). MD Theresa metFORMIN (Glucophage) 500 MG tablet Take 1 [...] time per week. 12/24/24 12/24/25 Priscila Laguerre LAPIDARIST - PSYCHOLOGIST PRIVATE PRACTICE atenolol (Tenormin) 25 MG tablet Take 1 [...] clearance in case of OR, page ortho care coordination manager with clearance status Alma Delia Bernardo MD [...] to normal structures that can lead to group home problems of pain and/or dysfunction, need for additional procedures, painful or prominent hardware which could require removal, failure of fixation which would require revision,the possibility of fracture nonunion, malunion and late and/or chronic. In addition potentially life threatening complications (DVT, PE, LA, stroke, and even ) at the time [...] capsule 300 mg, 300 mg, Oral, BID, Janetire, DO glucagon (human recombinant) injection 1 mg, 1 mg, IntraMUSCular, PRN, Janet Rosemarie, DO glucose oral gel 15 g, 15 g, Oral, PRN, Janetire, DO insulin glargine (Lantus) injection 26 Units, 26 Units, SubCUTAneous, Nightly, Janet Rosemarie, DO Insulin Lispro (Humalog) injection 0-6 Units, 0-6 Units, SubCUTAneous, TID WC AND Insulin Lispro (Humalog) injection 0-6 Units, 0-6 Units, SubCUTAneous, Nightly, Janet Houston, DO Lactobacillus 0.05-0.05 MG 4 tablet, 4 tablet, Oral, Daily, Janet Garciaire, DO [START ON 03/21/2025] levothyroxine (Synthroid, Levoxyl) tablet 25 mcg, 25 mcg, Oral, qAM AC, Estefaníaire, DO metoprolol tartrate (Lopressor) tablet 25 mg, 25 mg, Oral, BID, Janet Rosemarie, DO ondansetron ODT (Zofran-ODT) disintegrating tablet 4 mg, 4 mg, Oral, q8h PRN OR ondansetron (Zofran) injection 4 mg, 4 mg, IntraVENous, q6h PRN, Janet Garciaire, DO polyethylene glycol (PEG) 3350 (Miralax) packet 17 g, 17 g, Oral, Daily PRN, Janet Garciaire, DO [START ON 03/21/2025] semaglutide (Ozempic) injection 0.5 mg, 0.5 mg, SubCUTAneous, Weekly, Janet Houston, DO [START ON 03/21/2025] trospium (Sanctura) tablet 20 mg, 20 mg, Oral, qAM AC, Janet Garciaire, DO [4] Family History Problem Relation Name Age of Onset Diabetes Father Ed Shue Hypertension Father Ed Shue Diabetes Son Hi Nelson Hypertension Son Hi Nelson [facility] [employer] Phone: 1(959) 369-572908-09-2025 Emergency department Note* Vandana Soliman RN - 03/20/2025 5:18 PM EDT Report to Rayna PIERSON [address] [facility] CenterVieomf65-55-1016 Emergency department Note* Vandana Soliman RN - 03/20/2025 5:18 PM EDT Report to Rayna PIERSON [address] * Vandana Soliman RN - 03/20/2025 4:50 PM EDT Report to ambulance crew for transfer to [facility]. Chart to them. Pt taking cell phone. [...] Management discussed with the hospitalist team at [facility] as well as with Dr. Sullivan [...] Perry DO Authorized by: Jennifer Perry DO [place] protocol: Patient identity confirmed: Verbally with patient [...] Closed fracture of left hip, initial encounter ([facility]) PATIENT REFERRED TO: No follow-up provider specified. [...] 11:09 AM EDT Pt to ER by [facility] from [facility]. Pt fell sometime last night and [...] reach. Daughter @ bedside documented in this [facility]08-09-2025 Emergency department Note* Vandana Soliman RN - 03/20/2025 4:50 PM EDT Report to ambulance crew for transfer to [facility]. Chart to them. Pt taking cell phone. Daughter taking purse and clothing home with her. [address]zussx44-79-6002 Emergency department Note* Vandana Soliman RN - 03/20/2025 2:[address] Perry performing block for pain relief left hip. Pt tolerated well. [place] [id number] Emergency department Note* Vandana Soliman RN - 03/20/2025 1:38 PM EDT Pt able to void on fracture moyer. Urine sent to lab. [address]Izyygs06-79-6572 Emergency department Triage note* Vandana Soliman RN - 03/20/2025 11:09 AM EDT Pt to ER by [facility] from [facility]. Pt fell sometime last night and [...] Call light in reach. Daughter @ bedside [facility] CenterOywroa70-20-8484 Physician Emergency department Note* Jennifer Perry DO - 03/20/2025 11:09 AM EDTAssociated Order(s): [facility] SPECIFIC POCUS ORDER; Nerve Block [...] Management discussed with the hospitalist team at [facility] as well as with Dr. Sullivan [...] Perry DO Authorized by: Jennifer Perry DO [place] protocol: Patient identity confirmed: Verbally with patient [...] Closed fracture of left hip, initial encounter ([facility]) PATIENT REFERRED TO: No follow-up provider specified. [...] Year: No Jennifer Perry DO 03/20/25 1447 [facility] CenterMtybab69-81-1837 Nurse Note* Chikis Benitez RN - 03/15/2025 3:26 PM EDT Ok for discharge, HL and tele have been discontinued. Reviewed home going instructions. States she understands and has no questions. Has belongings. Awaiting ride home. [facility] CenterXnfmwf56-27-1321 Nurse Note* Chikis Benitez RN - 03/15/2025 3:26 PM EDT Ok for discharge, HL and tele have been discontinued. Reviewed home going instructions. States she understands and has no questions. Has belongings. Awaiting ride home. documented in this [facility]08-04-2025 Miscellaneous Notes* Treatment Plan - ALEJANDRINA Conrad CNP - [...] that she is wanting follow up in [place] office. A message was sent to the receptionist secretary to arrange. It appears she has one with Dixie Mclean in [place] office on 03/30 which she should keep. documented in this [facility]08-04-2025 Plan of care note* Treatment Plan - [...] that she is wanting follow up in [place] office. A message was sent to the receptionist secretary to arrange. It appears she has one with Dixie Mclean in [place] office on 03/30 which she should keep. [place] Phone: 1(999) 743-862908-04-2025 [facility]08-04-2025 Hospital course Narrative* Deny Barton [...] Complexity: follow up within 7-14 calendar days (52377) [] Severe Complexity: follow up within 7 calendar days (51708) FOLLOW UP TESTING, PENDING RESULTS OR REFERRALS AT TRANSITIONAL CARE VISIT: [] Yes [] No PENDING STUDIES: DISPOSITION: Home FACILITY/HOME CARE AGENCY NAME: Follow up with [address] [facility] [address] Schedule an appointment as soon as possible for a visit in 1 week(s) Jimmie Pichardo MD [address] [facility] [address] Follow up in 1 month(s) [facility] Wound Ostomy [address] [facility] [address] INSTRUCTIONS TO MA/SW: Please call patient [...] MD 03/15/2025, 1:34 PM documented in this [facility]08-04-2025 Consult note* Amirah Reese, LAPIDARIST - PSYCHOLOGIST PRIVATE PRACTICE - 03/15/2025 10:10 AM EDTAssociated Order(s): INPATIENT CONSULT TO WOUND CARE PROVIDERS Images from the original note were not included. [facility] Wound Care CONSULT Note Hanna Nelson [...] 12 o'clock to 12 o'clock measuring 0.8cm. [place] tissue present. [place] with purulent drainage. Periwound [...] to follow Recommend to follow up at [facility] Outpatient wound care center after hospital [...] Mckeon DO at 03/15/2025 4:41 PM EDT [id number] Consult note* ALEJANDRINA Pan CNP - 03/15/2025 10:10 AM EDTAssociated Order(s): INPATIENT CONSULT TO WOUND CARE PROVIDERS Images from the original note were not included. [facility] Wound Care CONSULT Note Hanna Nelson [...] 12 o'clock to 12 o'clock measuring 0.8cm. [place] tissue present. [place] with purulent drainage. Periwound [...] to follow Recommend to follow up at [facility] Outpatient wound care center after hospital [...] Name Age of Onset Diabetes Father Ed Shsj Hypertension Father Ed Shue Diabetes Son Hi [...] Just moved to the area, living in [place] independently, ambulates with a walker, getting around her home the way she would expect and has the assistance of familyclose by. She has known about atrial fibrillation for several years; this was managed by her primary doctor prior to her moving to [place]. She is in the process of establishing with a primary phsyciain herebut is open to seeing cardiology in the clinic. She is currently denying chest pain, pressure, shortness of breath, pedal edema. No palpitatoin sensation and states she has never felt any symptom associated with atrial fibrillation. Unsure if she goes in/out of afib. No other history of CV disease, never seen machine records units supervisor. CV Meds (ambulatory): Apixaban 5mg BID, atenolol [...] in the 24 hours ending 03/13/25 0932 @[id number]@ Gen: Comfortable, pleasant, conversant Neck: No JVP CV: Irregularly irregular, no murmurs Pulm: Clear Abd: Soft, thin Neuro: Nonfocal, formal exam deferred Extrem: Trace lower extremity edema of LLE Pertinent Labs: ABGs: No results found for: "PHART", "PO2ART", "GVZ2YQC" INR: No results for input(s): "INR" in the last 72 hours. Cardiac Injury Profile: No results for input(s): "CKTOTAL", "CKMB", "CKMBINDEX", "TROPONINI" in thelast 72 hours. Lipid Profile:No results found for: "TRIG", "HDL", "LDLCALC", "CHOL" Hemoglobin A1C: No results found for: "HGBA1C" Jimmie Pichardo MD Cardiology [facility] [place] 9:32 AM 03/13/25 documented in this [facility]08-04-2025 History of Present illness Narrative* Deny Barton MD - 03/15/2025 8:32 AM EDT Hospitalist Progress Note 03/15/2025 8:32 AM [phone]: Please page me for patient care issues. [phone]: Please page I[facility] night Hospitalist for any [...] diet Regular; 5 carb choices (75 gm/meal) @[id number]@ Medications: Continuous Meds[2] Scheduled Meds[3] LABS: CBC: Recent Labs 03/12/25 1630 03/13/2561803/14/25 011 WBC 10.6 10.5 7.8 RBC 4.28 3.72* 3.68* HGB 12.9 11.1* 11.0* HCT 39.8 34.9* 34.7* MCV 93.0 93.8 94.3 RDW 14.8 14.8 14.8 PLT 389 368 298 BMP: Recent Labs 03/13/25 0619 03/14/25 0114 03/15/25 0041 NA 141 138 139 K 3.9 4.4 4.4 CL 113* 108* 111* CO2 19* 19* 18* BUN 44* 43* 35* CREATININE 1.09 1.46* 1.10 GLUCOSE 45* 159* 107 CALCIUM 9.4 9.0 8.9 ANIONGAP 9 11 10 LIVER PROFILE: Recent Labs 03/13/25 0619 03/14/25 0114 AST 18 18 ALT 15 9 [...] Contact: Hi Nelson Relation: Son Preferred language: Indonesian Clammer needed? No Secondary Emergency Contact: Melba Black [facility] [place] Relation: Daughter Advance Directive: Full Code Discharge planning: Anticipated discharge home later today, pending echo/wound care evaluation NOTE: This report was transcribed using voice recognition software. Every effort was made to ensureaccuracy; however, inadvertent computerized human resource intern errors may be present. Deny Barton MD Division of Hospitalist Medicine [facility] PAGER: Epic chat Addendum Patient mentioned that [...] 20 mg, Oral, BID AC * Erica Bailey PT - 03/14/2025 12:50 PM EDT Images from the original note were not included. PHYSICAL THERAPY [facility] Initial Evaluation Name/MRN: Hanna Nelson ([id number]) Evaluation Date: 03/14/2025 Date of : 1940 Admission Date: 03/12/2025 3:01 PM Age: 84 y.o. Room/Bed: 1C-137/1C-137 A Discharge Recommendation: Home with assist PRN [...] Noted Atrial fibrillation with rapid ventricular response (HCC) 03/12/2025 Sepsis (HCC) 01/26/2025 Confusion 12/02/2024 Pes planus [...] Responsibilities: Independent Receives Help From: Family Active Transportation Modeler: No Prior Level of Function Prior Level [...] Raw Score (No Stairs) : 20 JH-HLM JH-HLM Score: Walked 25 ft or more (i.e. [...] of Care supervision is transferred to a [facility] Therapy Services Physical Therapist. Goals and/or treatment plan was established in collaboration with patient/family/other representatives. [1] Past Medical History: Diagnosis Date Arthritis Atrial fibrillation (HCC) Diabetes mellitus (HCC) Hyperlipidemia Hypertension Hypothyroidism Neuropathy [2] Past Surgical History: Procedure Laterality Date BACK SURGERY CHOLECYSTECTOMY * Deny Barton MD - 03/14/2025 8:07 AM EDT Hospitalist Progress Note 03/14/2025 8:07 AM [phone]: Please page me for patient care issues. [phone]: Please page [facility] night Hospitalist for any issues. Subjective: Admit [...] diet Regular; 5 carb choices (75 gm/meal) @[id number]@ Medications: Continuous Meds[2] Scheduled Meds[3] LABS: CBC: Recent Labs 03/12/25 1630 03/13/25 0619 03/14/25 0114 WBC 10.6 10.5 7.8 RBC 4.28 3.72* 3.68* HGB 12.9 11.1* 11.0* HCT 39.8 34.9* 34.7* MCV 93.0 93.8 94.3 RDW 14.8 14.8 14.8 PLT 389 368 298 BMP: Recent Labs 03/12/25 1630 03/13/25 0619 03/14/25 0114 NA 136 141 138 K 5.4* 3.9 4.4 CL 106 113* 108* CO2 18* 19* 19* BUN 45* 44* 43* CREATININE 1.46* 1.09 1.46* GLUCOSE 167* 45* 159* CALCIUM 9.8 9.4 9.0 ANIONGAP 12 9 11 LIVER PROFILE: Recent Labs 03/13/25 0619 03/14/25 0114 AST 18 18 ALT 15 9 [...] Contact: Hi Nelson Relation: Son Preferred language: Indonesian Clammer needed? No Secondary Emergency Contact: Melba Black [facility] Mobile Relation: Daughter Advance Directive: Full Code Discharge planning: Anticipated discharge in 1-2 days NOTE: This report was transcribed using voice recognition software. Every effort was made to ensureaccuracy; however, inadvertent computerized human resource intern errors may be present. Deny Barton MD Division of Hospitalist Medicine [facility] PAGER: Epic chat [1] Past Medical History: [...] be monitored and followed by the diet industrial service technician. LEO Cantu * Deny Barton MD - 03/13/2025 7:16 AM EDT Hospitalist Progress Note 03/13/2025 7:16 AM [phone]: Please page me for patient care issues. [phone]: Please page IMS night Hospitalist for any [...] diet Regular; 5 carb choices (75 gm/meal) @[id number]@ Medications: Continuous Meds[2] Scheduled Meds[3] LABS: CBC: [...] Contact: Hi Nelson Relation: Son Preferred language: Indonesian Clammer needed? No Secondary Emergency Contact: Melba Black [facility] Mobile Relation: Daughter Advance Directive: Full Code Discharge planning: Anticipated discharge in 2 days NOTE: This report was transcribed using voice recognition software. Every effort was made to ensureaccuracy; however, inadvertent computerized human resource intern errors may be present. Deny Barton MD Division of Hospitalist Medicine [facility] PAGER: [employer] chat [1] Past Medical History: Diagnosis Date [...] mg, Oral, BID AC documented in this [facility]08-02-2025 Consult note* Jimmie Pichardo MD - 03/13/2025 [...] Just moved to the area, living in [place] independently, ambulates with a walker, getting around her home the way she would expect and has the assistance of familyclose by. She has known about atrial fibrillation for several years; this was managed by her primary doctor prior to her moving to [place]. She is in the process of establishing with a primary phsyciain herebut is open to seeing cardiology in the clinic. She is currently denying chest pain, pressure, shortness of breath, pedal edema. No palpitatoin sensation and states she has never felt any symptom associated with atrial fibrillation. Unsure if she goes in/out of afib. No other history of CV disease, never seen machine records units supervisor. CV Meds (ambulatory): Apixaban 5mg BID, atenolol [...] in the 24 hours ending 03/13/25 0932 @[id number]@ Gen: Comfortable, pleasant, conversant Neck: No JVP CV: Irregularly irregular, no murmurs Pulm: Clear Abd: Soft, thin Neuro: Nonfocal, formal exam deferred Extrem: Trace lower extremity edema of LLE Pertinent Labs: ABGs: No results found for: "PHART", "PO2ART", "JCJ7GTM" INR: No results for input(s): "INR" in the last 72 hours. Cardiac Injury Profile: No results for input(s): "CKTOTAL", "CKMB", "CKMBINDEX", "TROPONINI" in thelast 72 hours. Lipid Profile:No results found for: "TRIG", "HDL", "LDLCALC", "CHOL" Hemoglobin A1C: No results found for: "HGBA1C" Jimmie Pichardo MD [facility] [place] 9:32 AM 03/13/25 [employer] Phone: 1(369) 507-780908-02-2025 Emergency department Note* Laura Urrutia RN - 03/13/2025 8:15 AM EDT BGT rechecked after patient ate breakfast. BGT 130. [facility] [id number] Emergency department Note* Laura Urrutia RN - [...] 03/12/2025 2:56 PM EDT Emergency Department Encounter [facility] EMERGENCY DEPT Patient: Hanna Nelson : [...] freeto contact the dictating provider for clarification.) Anastasai Rodriguez MD Acute Care [facility] Anastasia Rodriguez MD 03/12/252231 documented in this [place] [address]-02-2025 Emergency department Note* Laura Urrutia RN - 03/13/2025 7:49 AM EDT Breakfast tray delivered to patient [id number] Hospital Discharge instructions* Discharge Instr - Activity* Deny Barton MD - 03/13/2025 7:22 AM EDT As tolerated * Discharge Instr - Diet* Deny Barton MD - 03/13/2025 7:22 AM EDT ADA 1800/cardiac diet documented in this [address]02-2025 Emergency department Note* Faby Daugherty RN - 03/13/2025 7:13 AM EDT Morning blood work resulted with a BS 45. Checked with glucometer and it was 58. Pt provided crackers, apple juice, and a breakfast tray was ordered. No acute signs of distress. [facility] [id number] History and physical note* Patel Can MD [...] Extended Emergency Contact Information Primary Emergency Contact: AntonioHi Relation: Son Preferred language: Indonesian Clammer needed? No Secondary Emergency Contact: Melba Black [facility] Mobile Relation: Daughter Patel Can MD Division of Hospital Medicine Inpatient Medical Services/[facility] [1] Past Surgical History: Procedure Laterality Date BACK SURGERY CHOLECYSTECTOMY [2] Family History Problem Relation Name Age of Onset Diabetes Father Ed Shue Hypertension Father Ed Shue Diabetes Son Hi Nelson Hypertension Son Hi Nelson [3] Allergies Allergen Reactions Tape Rash [facility] CenterPajwok37-05-1603 [facility]08-01-2025 History and physical note* Patel [...] Contact: Hi Nelson Relation: Son Preferred language: Indonesian Clammer needed? No Secondary Emergency Contact: Melba Black [facility] Mobile Relation: Daughter Ptael Juan Frandy Can MD Division of Hospital Medicine Inpatient Medical Services/[facility] [1] Past Surgical History: Procedure Laterality Date BACK SURGERY CHOLECYSTECTOMY [2] Family History Problem Relation Name Age of Onset Diabetes Father Ed Shue Hypertension Father Ed Shue Diabetes Son Hi Nelson Hypertension Son Hi Nelson [3] Allergies Allergen Reactions Tape Rash documented in this [facility]08-01-2025 Emergency department Note* Sebastián Pennington RN - 03/12/2025 6:26 PM EDT This RN notified that pt needs US line. [facility] [id number] Physician Emergency department Note* Anastasia Rodriguez MD - 03/12/2025 2:56 PM EDT Emergency Department Encounter [facility] EMERGENCY DEPT Patient: Hanna Nelson : [...] Otherwise labs are unremarkable however given the NAYLEY as well as the rapid ventricular rate [...] [employer] Anastasia Rodriguez MD 03/12/25 2905 [place] Phone: 1(114) 510-267507-29-2025 History of Present illness Narrative* Jennifer Waldrop [...] (Active) Wound Image 03/09/25 1021 Site Assessment Pale;[place];Sloughing 03/09/25 1021 Linda-Wound Assessment Moist 03/09/25 1021 [...] provider verified the correct patient, procedure, equipment, manager client support, and site/side marked as required. Debridement Details [...] any reason before then. documented in this [facility]07-29-2025 History of Present illness Narrative* Jennifer Waldrop [...] (Active) Wound Image 03/09/25 1021 Site Assessment Pale;[place];Sloughing 03/09/25 1021 Linda-Wound Assessment Moist 03/09/25 1021 [...] provider verified the correct patient, procedure, equipment, manager client support, and site/side marked as required. Debridement Details [...] any reason before then. documented in this [facility]07-29-2025 Hospital Discharge instructions* Patient Instructions* Liss Acevedo RN - 03/09/2025 10:15 AM EDT Follow-up Appointments: Return Appointment in 1 week. Call [place] [facility] at [phone], [facility] at [phone], or [facility] at [phone]. Edema/Swelling: Avoid standing for long periods of [...] diabetics Please call the wound center at [phone] if you are experiencing this. If we are closed and youare unable to reach us in person please go to the ER documented in this [facility]07-29-2025 Hospital Discharge instructions* Patient Instructions* Liss Acevedo RN - 03/09/2025 10:15 AM EDT Follow-up Appointments: Return Appointment in 1 week. Call [place] wound center at [phone], [facility] [facility] at [phone], or [facility] at [phone]. Edema/Swelling: Avoid standing for long periods of [...] diabetics Please call the wound center at [phone] if you are experiencing this. If we are closed and youare unable to reach us in person please go to the ER documented in this [facility]07-22-2025 History of Present illness Narrative* Jennifer Waldrop DPM - 03/02/2025 10:15 AM EDTAssociated Order(s): [...] provider verified the correct patient, procedure, equipment, manager client support, and site/side marked as required. Debridement Details [...] any reason before then. documented in this [facility]07-22-2025 Hospital Discharge instructions* Patient Instructions* Priscila Rodriguez - 03/02/2025 10:15 AM EDT Follow-up Appointments: Return Appointment in 1 week. Call [place] wound center at [phone], [facility] [facility] at [phone], or [facility] at [phone]. Edema/Swelling: Avoid standing for long periods of [...] diabetics Please call the wound center at [phone] if you are experiencing this. If we are closed and youare unable to reach us in person please go to the ER documented in this [facility]07-15-2025 History of Present illness Narrative* Jennifer Waldrop DPM - 02/23/2025 10:15 AM EDTAssociated Order(s): [...] her son today. They report that on Erin 16 the patient was admitted to the hospital for cellulitis of the right foot. They relate that the patient underwent a bedside I&D under the direction of orthopedics. Following her hospital stay she has been having the site dressed while staying at a rehab facility/assisted. The patient and her son feel improvement [...] (Active) Wound Image 02/23/25 1041 Site Assessment Pale;[place];Red;Sloughing 02/23/25 1041 Linda-Wound Assessment Moist 02/23/25 1041 [...] 09/18/24 Diabetic Ulcer Foot Right Performed by: Jenniefr Waldrop DPM Authorized by: Jennifer Waldrop DPM Consent Consent obtained? verbal Consent given by: patient Risks discussed? procedural risks discussed Time out called at 02/23/2025 11:00 AM Immediately prior to the procedure a time out was called and the performing provider verified the correct patient, procedure, equipment, manager client support, and site/side marked as required. Debridement Details [...] Test Results/Process Orders 10 [x] Staff telephones TANKROOM TENDER, Nursing Homes/Clarify Orders 10 [x] Routine Transfer [...] (160 or more Points) documented in this [facility]07-15-2025 Hospital Discharge instructions* Patient Instructions* Liss Acevedo RN - 02/23/2025 10:15 AM EDT Follow-up Appointments: Return Appointment in 1 week. Call [place] wound center at [phone], [place] [facility] at [phone], or [facility] at [phone]. Edema/Swelling: Avoid standing for long periods of [...] diabetics Please call the wound center at [phone] if you are experiencing this. If we are closed and youare unable to reach us in person please go to the ER documented in this [facility]07-15-2025 Miscellaneous Notes* Addendum Note - Liss Acevedo RN - 02/23/2025 10:15 AM EDTEncounter addended by: Liss Acevedo RN on: 02/23/2025 11:59 AM Actions taken: Order list changed, Diagnosis association updated documented in this [facility]07-15-2025 Note* Addendum Note - Liss Acevedo RN - 02/23/2025 10:15 AM EDTEncounter addended by: Liss Acevedo RN on: 02/23/2025 11:59 AM Actions taken: Order list changed, Diagnosis association updated [place] [id number] Note* Addendum Note - Liss Acevedo RN - 02/23/2025 10:15 AM EDTEncounter addended by: Liss Acevedo RN on: 02/23/2025 11:59 AM Actions taken: Order list changed, Diagnosis association updated [place] [id number] Note* Addendum Note - Liss Acevedo RN - 02/23/2025 10:15 AM EDTEncounter addended by: Liss Acevedo RN on: 02/23/2025 11:59 AM Actions taken: Order list changed, Diagnosis association updated [place] [id number] Note* Addendum Note - Liss Acevedo RN - 02/23/2025 10:15 AM EDTEncounter addended by: Liss Acevedo RN on: 02/23/2025 11:59 AM Actions taken: Order list changed, Diagnosis association updated [place] [id number] Note* Addendum Note - Liss Acevedo RN - 02/23/2025 10:15 AM EDTEncounter addended by: Liss Acevedo RN on: 02/23/2025 11:59 AM Actions taken: Order list changed, Diagnosis association updated [place] [id number] Note* Addendum Note - Liss Acevedo RN - 02/23/2025 10:15 AM EDTEncounter addended by: Liss Acevedo RN on: 02/23/2025 11:59 AM Actions taken: Order list changed, Diagnosis association updated [facility] [id number] History of Present illness Narrative* Roxy Aguilar MD - 02/02/2025 2:25 PM EDT Patient was discharged to [facility] facility on 02/01/2025 by my colleague. Chart reviewed, labs imaging and vital signs reviewed. Patient remains medically stable for discharge, no changes to discharge medical regimen, please refer to discharge summary dated 02/01/2025 for discharge details. Labs imaging and vital signs reviewed. Acute, acute on chronic, unstable/uncontrolled chronic problems/diagnoses: Severe Sepsis secondary to diabetic foot wound Demand ischemia without an acute LA NAYELY on CKD stage II-baseline creatinine of 1.04-1.2 A-fib with RVR Type 2 diabetes with hyperglycemia Stable chronic problems affecting care, new non-acute diagnoses: Hypertension Hypothyroidism Plan: No changes to acute medical regimen today besides adding p.o. potassium. Patient remains medically stable for discharge to [facility] facility and facility is all set up and authorization obtained. Transportation set up for discharge. Nonbillable encounter. * Jennifer Valdez, PT - 02/02/2025 2:00 PM EDT Images from the original note were not included. PHYSICAL THERAPY [facility] Treatment Note Name/MRN: Hanna Nelson ([id number]) Date of : 1940 Age: 84 y.o. [facility] Dis[facility] Recommendation: [facility] Equipment Needed: (tbd) Pt denies falls [...] elevated blood glucose. [facility] hospital stay at [facility] on December 02, 2024, treated for acute metabolic encephalopathy and Klebsiella UTI. Son reported patient was welluntil few days prior. 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 While admitted, orthopedic surgery did bedside I&D [...] patient herself only recently moved up from [place] and is not quite familiar with the [...] foot wound Demand ischemia without an acute LA NAYELY on CKD stage II-baseline creatinine of 1.04-1.2 A-fib with RVR Type 2 diabetes with hyperglycemia Stable chronic problems affecting care, new non-acute diagnoses: Hypertension Hypothyroidism Plan As a result of the above findings & factors, the following mgmt was pursued: Severe Sepsis secondary to diabetic foot wound Demand ischemia without an acute LA - For diabetic foot infection, patient currently [...] family now wanting to get recommendations for [facility] facility. Discussed with case management to get [...] Contact: Hi Nelson Relation: Son Preferred language: Indonesian Clammer needed? No Secondary Emergency Contact: Melba Black [facility] Mobile Relation: Daughter Comment: Please [...] Katey Beard MD Division of Hospitalist Medicine [facility] [1] Past Medical History: Diagnosis Date [...] original note were not included. OCCUPATIONAL THERAPY [facility] Initial Evaluation Name/MRN: Hanna Nelson ([id number]) Evaluation Date: 01/31/2025 Date of : 1940 Admission Date: 01/25/2025 10:39 PM Age: 84 y.o. 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 10/16/2024 Non-pressure chronic ulcer of other part of right foot with necrosis of muscle ([facility]) 10/16/2024 Diabetic ulcer of right foot associated with diabetes mellitus due to underlying condition, with necrosis of muscle ([facility]) 10/09/2024 Uncontrolled type 2 diabetes mellitus with hyperglycemia ([facility]) 09/18/2024 Medical Precautions: No active isolations Proper [...] Responsibilities: Independent Receives Help From: None Active Transportation Modeler: Yes Prior Level of Function Prior Level [...] of Care supervision is transferred to a [facility] Therapy Services Occupational Therapist. Goals and/or treatment plan was established in collaboration with patient/family/other representatives. [1] Past Medical History: Diagnosis Date Atrial fibrillation (HCC) Diabetes mellitus (HCC) Hyperlipidemia Hypertension Hypothyroidism Neuropathy [2] Past Surgical History: Procedure Laterality Date BACK SURGERY CHOLECYSTECTOMY * Katey Beard MD - 01/31/2025 12:02 PM EDT Hospitalist Progress Note 01/31/2025 Subjective: Admit Date: 01/25/2025 PCP: Dorothy Medrano Room#: W1-330/W5-113 B BRIEF HOSPITAL COURSE: 84-year-old patient with history of DM2 with neuropathy, HTN, hyperlipidemia, AFib on Eliquis, hypothyroidism, and obesity presented [facility] on January [facility] with: Generalized malaise, elevated blood pressure reading, tachycardia and elevated blood glucose. Last hospital stay at [facility] on December 02, 2024, treated for acute metabolic encephalopathy and Klebsiella UTI. Son reported patient was welluntil few days prior. 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 While admitted, orthopedic surgery did bedside I&D [...] RDW 14.6 PLT 154 BMP: Recent Labs 01/29/2522101/31/25 1043 NA 136 139 K 3.8 3.7 [...] foot wound Demand ischemia without an acute LA NAYELY on CKD stage II-baseline creatinine of [...] family now wanting to get recommendations for fci facility. Discussed with case management to get [...] Contact: Hi Nelson Relation: Son Preferred language: Indonesian Clammer needed? No Secondary Emergency Contact: Melba Black [facility] Mobile Relation: Daughter Comment: Please [...] Katey Beard MD Division of Hospitalist Medicine [facility] [1] Past Medical History: Diagnosis Date [...] Admit Date: 01/25/2025 PCP: Dorothy Medrano Room#: W5-543/W5-466 B BRIEF HOSPITAL COURSE: 84-year-old patient with history of DM2 with neuropathy, HTN, hyperlipidemia, AFib on Eliquis, hypothyroidism, and obesity presented [facility] on January [facility] with: Generalized malaise, elevated blood pressure reading, tachycardia and elevated blood glucose. Last hospital stay at [facility] on December 02, 2024, treated for acute metabolic encephalopathy and Klebsiella UTI. Son reported patient was welluntil few days prior. 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 While admitted, orthopedic surgery did bedside I&D [...] History[1] LABS: CBC: Recent Labs 01/28/25 0018 06/20/25 0222 WBC 17.3* 11.7* RBC 3.52* 3.12* [...] foot wound Demand ischemia without an acute LA NAYELY on CKD stage II-baseline creatinine of [...] Extended Emergency Contact Information Primary Emergency Contact: AntonioHi Relation: Son Preferred language: Indonesian Clammer needed? No Secondary Emergency Contact: Melba Black [facility] Mobile Relation: Daughter Comment: Please [...] Katey Beard MD Division of Hospitalist Medicine [facility] [1] Past Medical History: Diagnosis Date [...] chloride,sodium chloride 0.9% [4] * Mario Tellez, PT - 01/29/2025 3:46 PM EDT Images from the original note were not included. PHYSICAL THERAPY Formerly [facility] Treatment Note Name/MRN: Hanna Nelson ([id number]) Date of : 1940 Age: 84 y.o. Room/Bed: W5-543/W5-543 B Discharge Recommendation: Halfway Facility Equipment Needed: No Pt denies alls [...] Covington MD - 01/29/2025 12:39 PM EDT [facility] Hospitalist Progress note [phone]: Please page me ([phone]) for patient care issues. [phone]: Please page [facility] Hospitalist for any issues. Subjective: Admit Date: 01/25/2025 PCP: Dorothy Medrano Room#: W5-698/W5-457 B Hanna Nelson is a 84 y.o. female who presents with Bacteremia BRIEF HOSPITAL COURSE: 84-year-old patient with history of DM2 with neuropathy, HTN, hyperlipidemia, AFib on Eliquis, hypothyroidism, and obesity presented [facility] on January [facility] with: Generalized malaise, elevated blood pressure reading, tachycardia and elevated blood glucose. Last hospital stay at [facility] on December 02, 2024, treated for acute [...] ml LABS: CBC: Recent Labs 01/27/25 0051 01/28/25 0018 01/29/25 0222 WBC 19.4* 17.3* 11.7* RBC 3.34* 3.52* 3.12* HGB 10.1* 10.6* 9.5* HCT 31.5* 33.3* 29.2* MCV 94.3 94.6 93.6 RDW 14.7 14.8 14.6 PLT 165 163 154 BMP: Recent Labs 01/27/25 0051 01/28/25 0018 01/29/25 022 NA 132* 130* 136 K 4.2 4.3 3.8 CL 106 105 108* CO2 18* 15* 18* BUN 36* 31* 35* CREATININE 1.25* 1.47* 1.16* GLUCOSE 136* 210* 212* CALCIUM 8.7* 9.1 9.0 ANIONGAP 8 10 10 LIVER PROFILE: No results for input(s): "AST", "ALT", "BILITOT", "ALKPHOS", "PROT" in the last 72 hours. No lab exists for component: "LABALBU" PT/INR: Recent Labs 01/26/25 2217 PROTIME 12.7* [...] foot wound Demand ischemia without an acute LA NAYELY on CKD stage II-baseline creatinine of [...] Contact: Hi Nelson Relation: Son Preferred language: Indonesian Clammer needed? No Secondary Emergency Contact: Melba Black [employer] [facility] Mobile Relation: Daughter Advance Directive: Full Code Discharge planning: TBD Rox Covington MD Division of Hospitalist Medicine Inpatient Medical Services/[facility] [1] [2] ampicillin-sulbactam, 3,000 mg, IntraVENous, q6h [...] creatinine, and vancomycin levels interfaced automatically to [employer] and data has been analyzed and interpreted. [...] PharmD. Available via Secure Chat * Mario Tellez PT - 01/28/2025 2:31 PM EDT Images from the original note were not included. PHYSICAL THERAPY [facility] Initial Evaluation Name/MRN: Hanna Nelson ([id number]) Evaluation Date: 01/28/2025 Date of : 1940 Admission Date: 01/25/2025 10:39 PM Age: 84 y.o. 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 10/16/2024 Non-pressure chronic ulcer of other part of right foot with necrosis of muscle ([facility]) 10/16/2024 Diabetic ulcer of right foot associated with diabetes mellitus due to underlying condition, with necrosis of muscle ([facility]) 10/09/2024 Uncontrolled type 2 diabetes mellitus with hyperglycemia ([facility]) 09/18/2024 Medical Precautions: No active isolations Proper [...] Responsibilities: Independent Receives Help From: None Active Transportation Modeler: Yes Pt denies alls in the past [...] JH-HLM Score: Sat at edge of bed Plan [...] of Care supervision is transferred to a [facility] Therapy Services Physical Therapist. Goals and/or treatment plan was established in collaboration with patient/family/other representatives. [1] Past Medical History: Diagnosis Date Atrial fibrillation (HCC) Diabetes mellitus (HCC) Hyperlipidemia Hypertension Hypothyroidism Neuropathy [2] Past Surgical History: Procedure Laterality Date BACK SURGERY CHOLECYSTECTOMY * Rox Covington MD - 01/28/2025 10:33 AM EDT [facility] Hospitalist Progress note [phone]: Please page me ([phone]) for patient care issues. [phone]: Please page [facility] Hospitalist for any issues. Subjective: Admit Date: 01/25/2025 PCP: Dorothy Medrano Room#: W5-599/W5-797 B Hanna Nelson is a 84 y.o. female who presents with Bacteremia BRIEF HOSPITAL COURSE: 84-year-old patient with history of DM2 with neuropathy, HTN, hyperlipidemia, AFib on Eliquis, hypothyroidism, and obesity presented [facility] on [facility] with: Generalized malaise\\, elevated blood pressure reading, tachycardia and elevated blood glucose. Last hospital stay at [facility] on December 02, 2024, treated for acute [...] foot wound Demand ischemia without an acute LA NAYELY on CKD stage II-baseline creatinine of 1.04-1.2 A-fib with RVR Type 2 diabetes with hyperglycemia Chronic problems Hypertension Hypothyroidism Plan Per stewardship recommendation de-escalated Zosyn to Unasyn, continue vancomycin Follow-up on IntraOp wound cultures Orthopedics signed off today, follow-up with Dr. Lexy as outpatient Monitor WBC Monitor creatinine Continue [...] Extended Emergency Contact Information Primary Emergency Contact: AntonioHi FND Relation: Son Preferred language: Indonesian Clammer needed? No Secondary Emergency Contact: Melba Black [facility] Mobile Relation: Daughter Advance Directive: Full Code Discharge planning: TBD Rox Covington MD Division of Hospitalist Medicine Inpatient Medical Services/[facility] [1] [2] ampicillin-sulbactam, 3,000 mg, IntraVENous, q6h [...] vancomycin, 1,000 mg, IntraVENous, q24h * Mercedez Wolf APRN - PSYCHOLOGIST PRIVATE PRACTICE - 01/28/2025 8:30 AM EDT Images from the original note were not included. [facility] Wound Care Progress Note Hanna Nelson [...] to follow Recommend to follow up at [facility] Outpatient wound care center after hospital [...] 02/01/2025 4:44 PM EDT * Alex Mena RPh - 01/28/2025 8:15 AM EDT Pharmacy to Dose Vancomycin - Progress Note Lab Results Component Value Date CREATININE 1.47 (H) 01/28/2025 BUN 31 (H) 01/28/2025 WBC 17.3 (H) 01/28/2025 VANCOTROUGH 11.6 01/27/2025 Doses, serum creatinine, and vancomycin levels interfaced automatically to [employer] and data has been analyzed and interpreted. [...] Orders placed. DATE: 01/28/25 TIME: 8:15 AM lAex Mena RPh, PharmD. Available via Secure Chat [...] Unable to assess Fluid Accumulation: Mild Extremities [employer] Strength: Not Performed Chief Complaint Patient presents [...] elevated blood glucose. Last hospital stay at [facility] on November, treated for acute metabolic encephalopathy [...] On: Kcal/kg Weight Used for Energy Requirements: [place] Weight for Energy Calculation (kg): 68 kg Total Energy Requirements (kcals/day): 6669-8768 (25-30 kcals/kg) Weight Used for Protein Requirements: [place] Weight in Kg Used for Protein Requirements: [...] Intake/Output Summary (Last 24 hours) at 01/27/2025 1712 Last data filed at 01/27/2025 1207 Gross [...] Current Body Weight: 99.8 kg (220 lb) [place] Body Weight (lbs) (Calculated): 150 lbs [place] Body Weight (Kg) (Calculated): 68 kg % [place] Body Weight (Calculated): 146.7 % BMI (kg/m2) [...] Discharge Planning: Too soon to determine Aditi Hannah AGGARWAL, RD, LD Contact: or Invoice2[employer] Chat (dial *[phone] from hospital phone) [1] Past Medical History: [...] contrast. Orthopaedic surgery will follow. Please page care coordination manager orthopaedic resident for questions or concerns. Orthopedic [...] cephalomedullary nail over 10 years ago in [place]. Objective PAST MEDICAL HISTORY Problem List[1] PAST SURGICAL HISTORY Surgical History[2] HOME MEDICATIONS Prior to Admission medications Medication Sig Start Date End Date Taking? Authorizing Provider Alcohol Swabs (Alcohol Prep) 70 % pads 1 Pad 3 times daily. 09/23/24 Yes Herman Pepper, DO apixaban (Eliquis) 5 MG tablet Take 5 mg by mouth 2 times daily. Yes Historical ProviderMD Blood Glucose Monitoring Suppl (Blood Glucose Monitor System) w/Device kit Check glucose 3x daily 09/23/24 Yes Herman Pepper, DO Continuous Glucose Sensor (FreeStyle Javier 3 Plus Sensor) misc 1 each every 15 days. 12/24/24 Yes Priscila Laguerre, LAPIDARIST - PSYCHOLOGIST PRIVATE PRACTICE gabapentin (Neurontin) 300 MG capsule Take 300 [...] per week. 12/24/24 12/24/25 Yes Priscila Laguerre, LAPIDARIST - PSYCHOLOGIST PRIVATE PRACTICE atenolol (Tenormin) 25 MG tablet Take 1 [...] -Ortho to follow. Please page orthopedic resident care coordination manager with questions or concerns. [1] Patient Active [...] 650 mg, Rectal, q6h PRN, Tiarra Ruelas LAPIDARIST - PSYCHOLOGIST PRIVATE PRACTICE apixaban (Eliquis) tablet 5 mg, 5 mg, Oral, BID, Tiarra Ruelas LAPIDARIST - PSYCHOLOGIST PRIVATE PRACTICE, 5 mg at 01/27/25 0840 atenolol (Tenormin) tablet 25 mg, 25 mg, Oral, BID, ALEJANDRINA Arroyo CNP, 25 mg at 01/27/25 0840 dextrose 5 % infusion, 100 mL/hr, IntraVENous, PRN, ALEJANDRINA Arroyo CNP dextrose 50 % solution 12.5 g, 12.5 g, IntraVENous, PRN, ALEJANDRINA Arroyo CNP gabapentin (Neurontin) capsule 300 mg, 300 mg, Oral, BID, Tiarra Ruelas APRN - KYREE, 300 mg at 01/27/25 0840 glucagon (human recombinant) injection 1 mg, 1 mg, IntraMUSCular, PRN, ALEJANDRINA Arroyo CNP glucose oral gel 15 g, 15 g, Oral, PRN, ALEJANDRINA Arroyo CNP insulin glargine (Lantus) injection 32 Units, 32 Units, SubCUTAneous, Nightly, ALEJANDRINA Arroyo CNP, 32 Units at 01/26/25 2017 Insulin Lispro (Humalog) injection 0-12 Units, 0-12 Units, SubCUTAneous, TID WC, ALEJANDRINA Arroyo CNP, 4 Units at 01/27/25 1203 Insulin Lispro (Humalog) injection 5 Units, 5 Units, SubCUTAneous, TID WC, ALEJANDRINA Arroyo CNP, 5 Units at 01/27/25 1203 Lactobacillus 0.05-0.05 MG 4 tablet, 4 tablet, Oral, Daily, ALEJANDRINA Arroyo CNP, 4 tabletat 01/27/25 0840 levothyroxine (Synthroid, Levoxyl) tablet 112 mcg, 112 mcg, Oral, qAM AC, ALEJANDRINA Arroyo, 112 mcg at 01/27/25 0558 metoprolol tartrate [...] 17 g, 17 g, Oral, Daily PRN, Tiarra Ruelas APRN - KYREE sodium chloride 0.9 % infusion, 5-250 mL/hr, [...] elevated blood glucose. Last hospital stay at [facility] on December 02, 2024, treated for acute [...] History: Medical History[1] LABS: CBC: Recent Labs 01/25/256 01/26/25 1031 01/27/25 0051 WBC 27.0* 18.4* 19.4* RBC 4.22 3.76* 3.34* HGB 12.8 11.4* 10.1* HCT 38.6 37.3 31.5* MCV 91.5 99.2* 94.3 RDW 14.2 14.6 14.7 PLT 244 110* 165 BMP: Recent Labs 01/25/25 2306 01/26/25 1031 [...] Contact: Hi Nelson Relation: Son Preferred language: Indonesian Clammer needed? No Secondary Emergency Contact: Melba Black [facility] Mobile Relation: Daughter Comment: Please [...] Katey Beard MD Division of Hospitalist Medicine [facility] [1] Past Medical History: Diagnosis Date [...] chloride,sodium chloride 0.9% [4] * Philly Pena, PharmD - 01/27/2025 7:30 AM EDT Pharmacy to Dose Vancomycin - Progress Note Lab Results Component Value Date CREATININE 1.25 (H) 01/27/2025 BUN 36 (H) 01/27/2025 WBC 19.4 (H) 01/27/2025 VANCOTROUGH 11.6 01/27/2025 Doses, serum creatinine, and vancomycin levels interfaced automatically to [employer] and data has been analyzed and interpreted. [...] -Ortho to follow. Please page orthopedic resident care coordination manager with questions or concerns. Prachi Victoria MD Orthopedic Surgery PGY-2 01/26/2025 at 10:10 PM * Jimmie Ramires PharmD - 01/26/2025 12:30 PM EDT Images from [...] creatinine, and vancomycin levels interfaced automatically to [employer] and data has been analyzed and interpreted. [...] Available via Secure Chat documented in this [facility]06-24-2025 Note* Care Coordination - Mag Chaney RN - 02/02/2025 12:23 PM EDT Being discharged to [facility] today. Family is aware. . [facility]1280 Note* Care Coordination - Mag Chaney RN - 02/02/2025 12:23 PM EDT Being discharged to [facility] today. Family is aware. . [facility] CenterQsvqdo22-78-7531 Miscellaneous Notes* Care Coordination - Mag Allen RN - 02/02/2025 12:23 PM EDT Being discharged to [facility] today. Family is aware. . * Care Coordination - Unknown Case Management - 02/02/2025 12:10 PM EDT Patient Choice Patient Name: HANNA NELSON Date of : 1940 Share Number: 0 Method of Sharing: electronic Date of Sharin2025-01-31 12:46:42.000 Responding Recipient: [email or web address] Ranked Providers Sent Referral Rank: 2 Name: [employer] Phone: [phone] Address: [address] [place] [address] Rank: 1 Name: [facility], [facility]. Phone: [phone] Address: [address] [place] [address] Rank: 3 Name: [facility] Phone: [phone] Address: [address] [place] [address] All Providers Sent Referral Name: [employer] Phone: [phone] Address: [address] [place] [address] Name: [facility] Phone: [phone] Address: [address] [place] [address] Name: [facility] Phone: [phone] Address: [address] [place] [address] * Care Coordination - Sebastián Melvin - 02/02/2025 12:09 PM EDT MAR & Discharge med list transmitted to [facility] - [facility] via Careport per TCC request. [id number] created in [facility] per TCC request. Facility notified via Careport. * Care Coordination - Sebastián Melvin - 02/02/2025 11:03 AM EDT Transport requested in Roundtrip. Awaiting time confirmation. Confirmed pickup time of 2:30PM by transport company Dimitris Cunningham at phone number . Location of facility drop off is [facility]. Facility notified via Careport,Mag Allen notified on secure chat. * Care Plan [...] Chaney RN - 02/01/2025 12:37 PM EDT [facility]. Will discharge there when stable.. * Home Care - Chas Garza RN [...] Progress Note 01/31/25 1411 Rapid Rounds Attendance Physical Plant Employee;Physician Planned Discharge Disposition SNF Confirmed with Spoke with son Hi, discussed discharge planning, SNF list provided and choices obtained. Referrals placed in careport. FOC is [facility] Other back up choices are [place] and [place]. Hi declined [facility] as an option. Today [...] dietary supplement as ordered Collaborate with clinical vegetable worker Problem: Urinary Incontinence Goal: Perineal skin integrity [...] that home care would require a teachable rehab care assistant as they need to ensure she isreceiving the ordered treatment for her wound. She stated she understood, but did not seem to want p lacement as an alternative at this time. TCC notified. Rn Immunology following case for Discharge Needs. * Care Coordination - Mag Chaney RN - 01/29/2025 12:09 PM EDT Spoke with pt about SNF and [facility]. She states she is going home with [facility].. * Care Coordination - Mag Chaney RN [...] 2253 by Aditi Sousa RN Outcome: Progressing Problem: Potential for Compromised Skin Integrity Goal: Skin Integrity is Maintained or Improved 01/28/2025354 by Aditi Sousa RN Outcome: Progressing 01/27/2025 225 by Aditi Sousa RN Outcome: Progressing Goal: Nutritional status is improving 01/28/2025354 by Aditi Sousa RN Outcome: Progressing 01/27/2025 2253 by Aditi Sousa RN Outcome: Progressing Problem: Urinary Incontinence Goal: Perineal skin integrity is maintained or improved 01/28/2025354 by Aditi Sousa RN Outcome: Progressing 01/27/2025 2253 by Aditi Sousa RN Outcome: Progressing Problem: Problem Interventions Goal: Assess Nutritional Intake 01/28/2025354 by Aditi Sousa RN Outcome: Progressing 01/27/2025 2253 by Aditi Sousa RN Outcome: Progressing * [...] found in electronic record naming sonHi as [id number] * Care Coordination - Mag Chaney RN - 01/26/2025 11:18 AM EDT Pt came to ER with c/o generalized illness. BP, BR and BS are all up. Started on IV antibiotics forskin infection. Needs a vascular US. Wants to go home, will follow for needs... documented in this [place] [id number] Note* Care Coordination - Unknown Case Management - 02/02/2025 12:10 PM EDT Patient Choice Patient Name: HANNA NELSON Date of : 1940 Share Number: 0 Method of Sharing: electronic Date of Sharin2025-01-31 12:46:42.000 Responding Recipient: [email or web address] Ranked Providers Sent Referral Rank: 2 Name: [employer] Phone: [phone] Address: [address] [place] [address] Rank: 1 Name: [employer]. Phone: [phone] Address: [address] [place] [address] Rank: 3 Name: [facility] Phone: [phone] Address: [address] [place] [address] All Providers Sent Referral Name: [employer] Phone: [phone] Address: [address] [place], [place] [address] Name: [employer]. Phone: [phone] Address: [address] [place] [address] Name: [facility] Phone: [phone] Address: [address] [place] [address] [facility] CenterMgvhjj95-99-8788 Note* Care Coordination - Unknown Case Management - 02/02/2025 12:10 PM EDT Patient Choice Patient Name: HANNA NELSON Date of : 1940 Share Number: 0 Method of Sharing: electronic Date of Sharin2025-01-31 12:46:42.000 Responding Recipient: [email or web address] Ranked Providers Sent Referral Rank: 2 Name: [employer] Phone: [phone] Address: [address] [place] [address] Rank: 1 [facility]: [facility] Phone: [phone] Address: [address] [place] [address] Rank: 3 Name: [facility] Phone: [phone] Address: [address] [place] [address] All Providers Sent Referral Name: [employer] Phone: [phone] Address: [address] [place] [address] Name: [facility] [employer] Phone: [phone] Address: [address] [place] [address] Name: [facility] Phone: [phone] Address: [address] [place] [address] [place] [id number] Note* Care Coordination - Sebastián Melvin - 02/02/2025 12:09 PM EDT MAR & Discharge med list transmitted to [facility]. [id number] created in [facility] per TCC request. Facility notified via Careport. [facility] CenterMecnzv77-63-1705 Note* Care Coordination - Sebastián Melvin - 02/02/2025 12:09 PM EDT MAR & Discharge med list transmitted to [facility] via Careport per TCC request. [id number] created in [facility] per TCC request. Facility notified via Careport. [facility] CenterIqojds56-95-6291 Note* Care Coordination - Sebastián Melvin - 02/02/2025 11:03 AM EDT Transport requested in Roundtrip. Awaiting time confirmation. Confirmed pickup time of 2:30PM by transport company Dimitris ZilloPay at phone number . Location of facility drop off is [facility]. Facility notified via Mag [employer] notified on secure chat. [facility] CenterYyduaj33-21-7614 Note* Care Coordination - Sebastián Melvin - 02/02/2025 11:03 AM EDT Transport requested in Roundtrip. Awaiting time confirmation. Confirmed pickup time of 2:30PM by transport company DimitrisDraftstreet beverly Rev at phone number . Location of facility drop off is [facility]. Facility notified via [employer] notified on secure chat. [facility] CenterXbntms57-25-3639 Plan of care note* Care Plan - [...] Interventions Goal: Assess Nutritional Intake Outcome: Progressing [facility] CenterZwlkuz12-73-8782 [facility]06-23-2025 Hospital course Narrative* Katey Beard [...] elevated blood glucose. [facility] [facility] on December 02, 2024, treated for acute metabolic encephalopathy and Klebsiella UTI. Son reported patient was welluntil few days prior. 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 While admitted, orthopedic surgery did bedside I&D [...] awaiting decision for SNF selection. Approved at [facility], able to accept pt, That is facility of choice as well. FACILITY REQ DISCHARGE 02/02. All orders in Acute, acute on chronic, unstable/uncontrolled chronic problems/discharge diagnoses: Severe Sepsis secondary to diabetic foot wound Demand ischemia without an acute LA NAYELY on CKD stage II-baseline creatinine of [...] Dietary Orders (From admission, onward) Start Ordered 01/27/251715 Supplement:Dinner, Lunch; Fruit Punch Jamie Until discontinued Question Answer Comment Frequency Dinner Frequency Lunch Select supplement: Fruit Punch Jamie 01/27/25 1715 01/27/25 171 Adult diet Regular; 4 carb choices [...] MG tablet Recommended Follow-up: Nba Gorman MD [address] [facility] [address] [facility] [address] Follow up As needed, recommend follow up with Dr. Alas [facility] Therapy - [address] [address] Complexity of Follow up: [] Moderate Complexity: follow up within 7-14 calendar days (59971) [x] Severe Complexity: follow up within 7 calendar days (19713) Follow up Testing, Pending results or Referrals [...] Katey Beard MD Division of Hospitalist Medicine [facility] 02/01/2025, 3:09 PM [1] Past Medical History: Diagnosis Date Atrial fibrillation (HCC) Diabetes mellitus (HCC) Hyperlipidemia Hypertension Hypothyroidism Neuropathy documented in this [facility]06-23-2025 Note* Care Coordination - Mag Chaney RN - 02/01/2025 12:37 PM EDT [facility] able to accept pt, That is facility of choice. Will discharge there when stable.. [facility] CenterSzawii88-15-4670 Note* Care Coordination - Mag Chaney RN - 02/01/2025 12:37 PM EDT [facility] able to accept pt, That is facility of choice. Will discharge there when stable.. [facility] CenterTdbdbv36-56-9260 Note* Home Care - Chas Garza RN - 02/01/2025 11:17 AM EDT Plan is placement at discharge. Home care to sign off. Please re-consult if a home care need arises. [facility] CenterZwocub36-61-7961 Note* Home Care - Chas Garza RN - 02/01/2025 11:17 AM EDT Plan is placement at discharge. Home care to sign off. Please re-consult if a home care need arises. [facility] CenterOxqjut05-70-7862 Plan of care note* Care Plan - [...] Interventions Goal: Assess Nutritional Intake Outcome: Progressing [facility] CenterYccgko64-49-2482 Note* Care Coordination - Miesha Pichardo RN - 01/31/2025 2:12 PM EDT Care Management Progress Note 01/31/25 141 Rapid Rounds Attendance Physical Plant Employee;Physician Planned Discharge Disposition SNF Confirmed with Spoke with amber Do, discussed discharge planning, SNF list provided and choices obtained. Referrals placed in careport. [facility] Other back [place] choices are [place] and [place]. Hi declined [facility] as an option. Today we still await Post-discharge arrangement completion (facility acceptance and bed available) Attending completion of discharge workflow Length of Stay (Days): 5 GMLOS: 3.5 [facility] CenterKvkgst56-97-5972 Note* Care Coordination - Miesha Pichardo RN - 01/31/2025 2:12 PM EDT Care Management Progress Note 01/31/25 1411 Rapid Rounds Attendance Physical Plant Employee;Physician Planned Discharge Disposition SNF Confirmed with Spoke with son Hi, discussed discharge planning, SNF list provided and choices obtained. Referrals placed in careport. FOC is [facility] Other back up choices are [place] and [place]. Hi declined [facility] as an option. Today we still await Post-discharge arrangement completion (facility acceptance and bed available) Attending completion of discharge workflow Length of Stay (Days): 5 GMLOS: 3.5 [facility] CenterGrqkqb75-76-6771 Plan of care note* Care Plan - [...] is improving Outcome: Progressing Flowsheets (Taken 01/31/2025 100) Nutritional status is improving: Monitor and assess [...] dietary supplement as ordered Collaborate with clinical vegetable worker Problem: Urinary Incontinence Goal: Perineal skin integrity is maintained or improved Outcome: Progressing Flowsheets (Taken 01/31/2025 100) Perineal skin integrity is maintained or improved: Assess genitourinary system, perineal skin, labs (urinalysis), and history of incontinence to include past management, aggravating, and alleviating factors Collaborate with interdisciplinary team including wound, ostomy, and continence nurse and initiate plans and interventions as needed Keep skin clean and dry Apply urine containment device Apply skin protectant [facility] CenterVnjghl25-92-9397 NoteProblem: Potential for Compromised Skin Integrity Goal: Skin Integrity is Maintained or Improved Outcome: Progressing Problem: Problem Interventions Goal: Assess Nutritional Intake [facility] Plan of care note* Care Plan - Marietta Mix RN - 01/31/2025 5:49 AM EDT Problem: Potential for Compromised Skin Integrity Goal: Skin Integrity is Maintained or Improved Outcome: Progressing Problem: Problem Interventions Goal: Assess Nutritional Intake Outcome: Progressing [facility] CenterMovqzm57-22-3313 Plan of care note* Care Plan - [...] Interventions Goal: Assess Nutritional Intake Outcome: Progressing [facility] CenterRtfekb49-44-0235 Plan of care note* Care Plan - [...] Interventions Goal: Assess Nutritional Intake Outcome: Progressing [facility] CenterFdrcbk38-26-7050 Plan of care note* Care Plan - [...] Interventions Goal: Assess Nutritional Intake Outcome: Progressing [facility] CenterYgqppy56-08-4404 Note* Home Care - Chas Garza RN [...] to help, but gives permission to the [facility] to reach out to them. HIPAA compliant message left for patient's daughter. I explained to the patient that home care would require a teachable rehab care assistant as they need to ensure she isreceiving the ordered treatment for her wound. She stated she understood, but did not seem to want p lacement as an alternative at this time. [facility] notified. Rn Immunology following case for Discharge Needs. [facility] CenterIydkzj14-95-2902 Note* Home Care - Chas Garza RN [...] to help, but gives permission to the [facility] to reach out to them. HIPAA compliant message left for patient's daughter. I explained to the patient that home care would require a teachable rehab care assistant as they need to ensure she isreceiving the ordered treatment for her wound. She stated she understood, but did not seem to want p lacement as an alternative at this time. [facility] notified. Rn Immunology following case for Discharge Needs. [facility] CenterBxosgn44-43-5962 Note* Care Coordination - Mag Chaney RN - 01/29/2025 12:09 PM EDT Spoke with pt about SNF and [facility]. She states she is going home with [facility].. [facility] CenterNsltya64-34-9814 Note* Care Coordination - Mag Chaney RN - 01/29/2025 12:09 PM EDT Spoke with pt about SNF and [facility]. She states she is going home with [facility].. [facility] CenterRgtsfb62-56-9811 Note* Care Coordination - Mag Chaney RN - 01/29/2025 12:00 PM EDT Care Management Progress Note Continues on IV antibiotics for surgical site infection. PT recommends SNF, will see if she wants to go. . Length of Stay (Days): 3 GMLOS: 3.5 [facility] CenterBvcygx11-10-8881 Note* Care Coordination - Mag Chaney RN - 01/29/2025 12:00 PM EDT Care Management Progress Note Continues on IV antibiotics for surgical site infection. PT recommends SNF, will see if she wants to go. . Length of Stay (Days): 3 GMLOS: 3.5 [facility] CenterDuauje85-99-1017 NoteCare Management Progress Note Continues on IV antibiotics for surgical site infection. PT recommends SNF, will see if she wants to go. . Length of Stay (Days): 3 GMLOS: [address] [place], [place] [address]50606-20-2025 Plan of care note* Care Plan - [...] Interventions Goal: Assess Nutritional Intake Outcome: Progressing T [facility] CenterTrjxne46-25-6336 Note* Care Coordination - Mag Chaney RN - 01/28/2025 10:59 AM EDT Care Management Progress Note Continues on IV antibiotics. Ortho has signed off. No osteo in hip. Need PT and OT to eval. May have needs.. Length of Stay (Days): 2 GMLOS: 3.5 [facility] CenterIgzenz11-68-9778 Note* Care Coordination - Mag Chaney RN - 01/28/2025 10:59 AM EDT Care Management Progress Note Continues on IV antibiotics. Ortho has signed off. No osteo in hip. Need PT and OT to eval. May have needs.. Length of Stay (Days): 2 GMLOS: 3.5 [facility] CenterBksjnm48-35-3662 NoteCare Management Progress Note Continues on IV antibiotics. Ortho has signed off. No osteo in hip. Need PT and OT to eval. May have needs.. Length of Stay (Days): 2 GMLOS: [address] [place], [place] 4050606-19-2025 Plan of care note* Care Plan - Aditi Sousa RN - 01/28/2025 3:55 AM EDT Problem: Knowledge Deficit Goal: Patient/family/caregiver demonstrates understanding of disease process, treatment plan, medications, and discharge instructions 01/28/2025354 by Aditi Sousa RN Outcome: Progressing 01/27/20253 by Aditi Sousa RN Outcome: Progressing Problem: [...] 2253 by Aditi Sousa RN Outcome: Progressing Problem: Problem Interventions Goal: Assess Nutritional Intake 01/28/2025354 by Aditi Sousa RN Outcome: Progressing 01/27/2025 225 by Aditi Sousa RN Outcome: Progressing [facility] CenterShujoi19-91-9402 Plan of care note* Care Plan - [...] Interventions Goal: Assess Nutritional Intake Outcome: Progressing [facility] CenterBkvztw71-88-8650 Note* Care Coordination - Mag Chaney RN [...] Stay (Days): 1 GMLOS: No GMLOS Documented [facility] CenterYicker94-29-4982 Note* Care Coordination - Mag Chaney RN [...] Stay (Days): 1 GMLOS: No GMLOS Documented [facility] CenterTjbdlu36-49-0706 Consult note* Marielos Blair APRN - KYREE - 01/27/2025 9:10 AM EDTAssociated Order(s): INPATIENT CONSULT TO WOUND CARE PROVIDERS Images from the original note were not included. [facility] Wound Care CONSULT Note Hanna Nelson [...] to follow Recommend to follow up at [facility] Outpatient wound care center after hospital [...] Mckeon DO at 02/01/2025 4:44 PM EDT [facility] CenterTzzjpd26-21-8923 Consult note* ALEJANDRINA Ramesh CNP - 01/27/2025 9:10 AM EDTAssociated Order(s): INPATIENT CONSULT TO WOUND CARE PROVIDERS Images from the original note were not included. [facility] Wound Care CONSULT Note Hanna Nelson [...] to follow Recommend to follow up at [facility] Outpatient wound care center after hospital [...] Hanna Nelson Date of : 1940 Acct: [id number] PCP: Dorothy Medrano Date of Admission: 01/25/2025 [...] and close outpatient follow-up. Patient presented to [facility] ED on 01/25 due to complaints of [...] Patient not taking: No sig reported Historical ProviderMD fenofibrate (Triglide) 160 MG tablet Take 160 [...] team -Orthopaedic surgery will follow. Please page care coordination manager orthopaedic resident for questions or concerns. Prachi [...] 650 mg, Rectal, q6h PRN, Tiarra Ruelas APRN - PSYCHOLOGIST PRIVATE PRACTICE apixaban (Eliquis) tablet 5 mg, 5 mg, Oral, BID, Tiarra Ruelas LAPIDARIST - PSYCHOLOGIST PRIVATE PRACTICE, 5 mg at 01/26/25 1033 atenolol (Tenormin) tablet 25 mg, 25 mg, Oral, BID, Tiarra Ruelas APRN - PSYCHOLOGIST PRIVATE PRACTICE, 25 mg at 01/26/25 1208 dextrose 5 % infusion, 100 mL/hr, IntraVENous, PRN, Tiarra Ruelas APRN - PSYCHOLOGIST PRIVATE PRACTICE dextrose 50 % solution 12.5 g, 12.5 g, IntraVENous, PRN, Tiarra Ruelas APRN - KYREE gabapentin (Neurontin) capsule 300 mg, 300 mg, Oral, BID, Tiarra Ruelas LAPIDARIST - PSYCHOLOGIST PRIVATE PRACTICE, 300 mg at 01/26/25 1033 glucagon (human recombinant) injection 1 mg, 1 mg, IntraMUSCular, PRN, Tiarra Ruelas APRN - KYREE glucose oral gel 15 g, 15 g, Oral, PRN, Tiarra Ruelas LAPIDARIST - PSYCHOLOGIST PRIVATE PRACTICE insulin glargine (Lantus) injection 32 Units, 32 Units, SubCUTAneous, Nightly, ALEJANDRINA Arroyo CNP Insulin Lispro (Humalog) injection 0-12 Units, 0-12 Units, SubCUTAneous, TID WC, Tiarra Ruelas APRN - KYREE, 6 Units at 01/26/25 1243 Insulin Lispro (Humalog) injection 5 Units, 5 Units, SubCUTAneous, TID WC, Tiarra Ruelas APRN - PSYCHOLOGIST PRIVATE PRACTICE, 5 Units at 01/26/25 1243 Lactobacillus 0.05-0.05 MG 4 tablet, 4 tablet, Oral, Daily, ALEJANDRINA Arroyo CNP [START ON 01/27/2025] levothyroxine (Synthroid, Levoxyl) tablet 112 mcg, 112 mcg, Oral, qAM AC, Tiarra Ruelas APRN - KYREE metoprolol tartrate (Lopressor) injection 5 mg, 5 mg, IntraVENous, q6h PRN, Tiarra Ruelas APRN- KYREE ondansetron ODT (Zofran-ODT) disintegrating tablet 4 mg, 4 mg, Oral, q8h PRN OR ondansetron (Zofran) injection 4 mg, 4 mg, IntraVENous, q6h PRN, Tiarra Ruelas APRN - KYREE piperacillin-tazobactam (Zosyn) 4,500 mg in sodium chloride 0.9 % 100 mL IVPB Mini-Bag Plus, 4,500 mg, IntraVENous, q6h, Ramiro Crawford MD polyethylene glycol (PEG) 3350 (Miralax) packet 17 g, 17 g, Oral, Daily PRN, Tiarra Ruelas APRN - KYREE sodium chloride 0.9 % infusion, 5-250 mL/hr, [...] 01/29/2025 8:41 AM EDT documented in this [facility]06-18-2025 Plan of care note* Care Plan - Jorge Dover RN - 01/27/2025 12:05 AM EDT Problem: Knowledge Deficit Goal: Patient/family/caregiver demonstrates understanding of disease process, treatment plan, medications, and discharge instructions Outcome: Progressing Problem: Potential for Compromised Skin Integrity Goal: Skin Integrity is Maintained or Improved Outcome: Progressing [facility] CenterZclnyd93-65-5506 Hospital Discharge instructions* Discharge Instructions* Prachi Victoria [...] Contact: Hi Nelson Relation: Son Preferred language: Indonesian Clammer needed? No Secondary Emergency Contact: Melba Black [facility] [place] Relation: Daughter Past Surgical [...] Total assistance Toileting Total assistance Feeding Independent Registered Client Associate Independent Med Delivery yes Wound Care Documentation [...] Date: 01-26-25 Discharging to Facility/ Agency Name: [facility] Address: [address] [address] [facility] [address] Fax: Dialysis Facility (if applicable) Name: Address: Dialysis Schedule: Phone: Fax: Physical Plant Employee/Furnace Hand signature: ICIAN SECTION Name: Hanna Nelson Prognosis: good Condition at Discharge: stable Rehab Potential (if transferring to Rehab): good Recommended Labs or Other Treatments After Discharge: na The individual is being admitted to a nursing facility directly from an [facility] or a unit of a [facility] that is not operated by or licensed by [facility] under section 5119.14 or 5160-3-15.1 5 The individual requires the level of services provided by a nursing facility for the condition for which he or she was treated in the hospital and, Physician Certification: I certify the above information and transfer of Hanna Nelson is necessary for the continuing treatment of the diagnosis listed and that she requires fci facility for less than 30 days. Update Admission H&P: No change in H&P PHYSICIAN SIGNATURE: documented in this [facility]06-17-2025 NoteProblem: Knowledge Deficit Goal: Patient/family/caregiver demonstrates understanding of disease process, treatment plan, medications, and discharge instructions [facility]: [facility] Plan of care note* Care Plan - Mone Gibson RN - 01/26/2025 6:57 PM EDT Problem: Knowledge Deficit Goal: Patient/family/caregiver demonstrates understanding of disease process, treatment plan, medications, and discharge instructions Outcome: Progressing [facility] CenterTqgnpc10-40-2010 Note* Care Coordination - MEREDITH Tidwell - 01/26/2025 1:52 PM EDT Copy of DPOA found in electronic record naming Hi clark as [phone] [facility] CenterSxeraq85-87-7876 Note* Care Coordination - MEREDITH Tidwell - 01/26/2025 1:52 PM EDT Copy of DPOA found in electronic record naming Hi clark as [phone] [facility] CenterNsrscm09-86-0182 Consult note* Prachi Victoria MD - 01/26/2025 12:51 PM EDTAssociated Order(s): IP CONSULT TO ORTHOPAEDIC SURGERY Images from the original note were not included. Ortho Consult Patient: Hanna Nelson Date of : 1940 Acct: [id number] PCP: Dorothy Medrano Date of Admission: 01/25/2025 [...] and close outpatient follow-up. Patient presented to [facility] ED on 01/25 due to complaints of [...] Pad 3 times daily. 09/23/24 Yes Herman ePpper DO apixaban (Eliquis) 5 MG tablet Take 5 mg by mouth 2 times daily. Yes Historical Provider, Blood Glucose Monitoring Suppl (Blood Glucose Monitor System) w/Device kit Check glucose 3x daily 09/23/24 Yes Herman Pepper, DO Continuous Glucose Sensor (FreeStyle Javier 3 Plus Sensor) misc 1 each every 15 days. 12/24/24 Yes Priscila Laguerre APRN - KYREE gabapentin (Neurontin) [...] (with meals). 09/24/24 04/22/25 Yes Herman Pepper oxybutynin (Ditropan) 5 MG tablet Take 10 mg by mouth daily. Yes Historical Provider, semaglutide (Ozempic) 2 MG/3ML solution pen-injector Inject 0.5 mg under the skin 1 (one) time per week. 12/24/24 12/24/25 Yes Priscila Laguerre LAPIDARIST - PSYCHOLOGIST PRIVATE PRACTICE atenolol (Tenormin) 25 MG tablet Take 1 [...] team -Orthopaedic surgery will follow. Please page care coordination manager orthopaedic resident for questions or concerns. Prachi [...] mg, 650 mg, Rectal, q6h PRN, Tiarra Isaiah Ruelas, LAPIDARIST - PSYCHOLOGIST PRIVATE PRACTICE apixaban (Eliquis) tablet 5 mg, 5 mg, Oral, BID, Tiarra C Ricassardi, LAPIDARIST - PSYCHOLOGIST PRIVATE PRACTICE, 5 mg at 01/26/25 1033 atenolol (Tenormin) tablet 25 mg, 25 mg, Oral, BID, Tiarra Isaiah Ruelas, LAPIDARIST - PSYCHOLOGIST PRIVATE PRACTICE, 25 mg at 01/26/25 1208 dextrose 5 % infusion, 100 mL/hr, IntraVENous, PRN, Tiarra Isaiah Ruelas LAPIDARIST - PSYCHOLOGIST PRIVATE PRACTICE dextrose 50 % solution 12.5 g, 12.5 g, IntraVENous, PRN, ALEJANDRINA Arroyo CNP gabapentin (Neurontin) capsule 300 mg, 300 mg, [...] 17 g, 17 g, Oral, Daily PRN, Tiarra C Rizzardi, LAPIDARIST - PSYCHOLOGIST PRIVATE PRACTICE sodium chloride 0.9 % infusion, 5-250 mL/hr, IntraVENous, PRN, Sanjuanita Conley MD sodium chloride 0.9 % infusion, 75 mL/hr, IntraVENous, Continuous, Tiarra Ruelas APRN - PSYCHOLOGIST PRIVATE PRACTICE, Last Rate: 75 mL/hr at 01/26/25 1207, [...] Bansal DPM at 01/29/2025 8:41 AM EDT [facility] CenterPoculb95-84-7608 Note* Care Coordination - Mag Chaney RN - 01/26/2025 11:18 AM EDT Pt came to ER with c/o generalized illness. BP, BR and BS are all up. Started on IV antibiotics forskin infection. Needs a vascular US. Wants to go home, will follow for needs... [facility] CenterMjntzo15-02-0333 Note* Care Coordination - Mag Chaney RN - 01/26/2025 11:18 AM EDT Pt came to ER with c/o generalized illness. BP, BR and BS are all up. Started on IV antibiotics forskin infection. Needs a vascular US. Wants to go home, will follow for needs... [facility] CenterGofsqz70-45-8158 History and physical note* Tiarra Ruelas, LAPIDARIST - PSYCHOLOGIST PRIVATE PRACTICE - 01/26/2025 9:31 AM EDT Attending History and Physical Admit Date: 01/25/2025 PCP: Dorothy Medrano CHIEF COMPLAINT: feeling unwell Reason for Admission: Sepsis, RLE cellulitis, AF RVR History Obtained From: patient, son, MIREYA HISTORY OF PRESENT ILLNESS: Hanna is a 84 y.o. female with past medical history T2DM, neuropathy, HTN, HLD, Atrial fibrillation on Eliquis, hypothyroidism, obesity. Patient was last discharged from [facility] 12/02/24, during that admission was treated for acute metabolic encephalopathy 2/2 Klebsiella UTI, she was treated with Ceftriaxone x3 days and improved. She presents back to [place] [facility] on 01/25 with generalized malaise, hypertension, [...] Rocephin, Tylenol in the ER. Transferred [facility] for[facility]. Past Medical History: Medical [...] elevated - Elevated troponin, likely type II LA in setting of AF RVR, infection. No [...] Contact: Hi Nelson Relation: Son Preferred language: Indonesian Clammer needed? No Secondary Emergency Contact: Melba Black [facility] [place] Relation: Daughter [employer] Hanna Nelson : 1940 Primary Care Physician: Dorothy Medrano The patient and/or family/surrogate voluntarily agreed to participate in ACP services. Code Status: [x_] [FULL CODE - Continue all advanced life support: CPR,intubation,invasive procedures] [_] [DNR-CCA - DO NOT do CPR, intubation] [_] [DNR-NON GARMENT SEWING MACHINE OPERATOR - Comfort care only] [_] DNR form [...] of life care, with patient and/or family/surrogate. Tiarra Ruelas, ALEJANDRINA - KYREE Division of Hospitalist Medicine [facility] [1] Past Medical History: Diagnosis Date Atrial fibrillation (HCC) Diabetes mellitus (HCC) Hyperlipidemia Hypertension Hypothyroidism Neuropathy [2] Past Surgical History: Procedure Laterality Date BACK SURGERY CHOLECYSTECTOMY [3] No family history on file. [4] Current Facility-Administered Medications: sodium chloride 0.9 % infusion, 5-250 mL/hr, IntraVENous, PRN, J Dede Conley MD sodium chloride 0.9% (NS) flush 5-40 mL, 5-40 mL, IntraVENous, 2 times per day, Sanjuanita Conley MD sodium chloride 0.9% (NS) flush 5-40 mL, 5-40 mL, IntraVENous, PRN, Sanjuanita Conley MD [5] Allergies Allergen Reactions Tape Rash Cosigned by Ramiro Crawford MD at 01/26/2025 1:57 PM EDT [facility] [place] Phone: [phone]) 201-480906-17-2025 [facility]06-17-2025 History and physical note* ALEJANDRINA Arroyo CNP - 01/26/2025 9:31 AM EDT Attending History and Physical Admit Date: 01/25/2025 PCP: Dorothy Medrano CHIEF COMPLAINT: feeling unwell Reason for Admission: Sepsis, RLE cellulitis, AF RVR History Obtained From: patient, son, [facility] HISTORY OF PRESENT ILLNESS: Hanna is a 84 y.o. female with past medical history T2DM, neuropathy, HTN, HLD, Atrial fibrillation on Eliquis, hypothyroidism, obesity. Patient was last discharged from [facility] 12/02/24, during that admission was treated for acute metabolic encephalopathy 2/2 Klebsiella UTI, she was treated with Ceftriaxone x3 days and improved. She presents back to [place] ER on 01/25 with generalized malaise, hypertension, [...] Rocephin, Tylenol in the ER. Transferred to [facility] for[facility]. Past Medical History: Medical [...] elevated - Elevated troponin, likely type II LA in setting of AF RVR, infection. No [...] Contact: Hi Nelson Relation: Son Preferred language: Indonesian Clammer needed? No Secondary Emergency Contact: Melba Black [facility] [place] Relation: Daughter [employer] Hanna Nelson : 1940 Primary Care Physician: Dorothy Medrano The patient and/or family/surrogate voluntarily agreed to participate in ACP services. Code Status: [x_] [FULL CODE - Continue all advanced life support: CPR,intubation,invasive procedures] [_] [DNR-CCA - DO NOT do CPR, intubation] [_] [DNR-NON GARMENT SEWING MACHINE OPERATOR - Comfort care only] [_] DNR form [...] ALEJANDRINA Powers CNP Division of Hospitalist Medicine [facility] [1] Past Medical History: Diagnosis Date [...] 01/26/2025 1:57 PM EDT documented in this [facility]06-17-2025 Nurse Note* Mone Gibson RN - 01/26/2025 8:55 AM EDT Pt admitted to [facility], [facility], call light in reach, bed low and locked, made aware of pt admit and ptdaughter was called to inform her of pt move [facility] [id number] Nurse Note* Mone Gibson RN - 01/26/2025 8:55 AM EDT Pt admitted to [facility], [facility], call light in reach, bed low and locked, made aware of pt admit and ptdaumanpreet was called to inform her of pt move documented in this [facility]06-17-20[facility] Emergency department Note* Lashell Martinez RN - 01/26/2025 8:00 AM EDT Dimitris Rae arrived for transport. Hand off report given to medic. [address]Ebdfmx96-09-1341 Emergency department Note* Lashell Martinez RN - 01/26/2025 8:00 AM EDT Dimitris Rae arrived for transport. Hand off report given to medic. * Cleine Reyna RN - 01/26/2025 5:27 AM EDT Report Called to Robbie PIERSON 5W [facility]. * Sanjuanita Conley MD - 01/25/2025 10:34 [...] 345 (*) Narrative: Performed by: Rodrigo Garcia, [address] [place] [address] CLIA ID: [id number] SARS-COV-2, FLU A/B, AND RSV COMBO - [...] In compliance with this authorization, please visit www.fda.gov/media/693098/download or www.fda.gov/media/357167/download to access the applicable information sheets. THYROID [...] demonstrating 8 prescriptions, to include gabapentin and [place] Blood work significant for an elevated glucose [...] bacteremia. Patient care discussed with: Dr. Can, [facility] hospitalist, who has agreed to accept the patient for admission. Requested blood cultures and COVID swab. SEP-1 CORE MEASURE DATA SIRS Criteria Sepsis [...] to care for herself. documented in this [facility]06[facility]17[facility]2025 Emergency department Note* Celine Reyna RN - 01/26/2025 5:27 AM EDT Report Called to Robbie PIERSON 5W Rodrigo Baca. [facility] CenterYdnajd10-97-0975 Emergency department Triage note* Celine Reyna RN - 01/25/2025 10:34 PM EDT The patient came in via ambulance. She is complaining of generally not feeling well. Per family thepatient had elevated bp, hr, blood sugar. Generalized weakness, difficulty ambulating to the bathroom. Difficulty with being able to care for herself. [facility] CenterClslhq75-08-6083 Physician Emergency department Note* Sanjuanita Conley MD [...] Triage Vitals Temp Heart Rate Resp BP 01/25/251 01/25/25223901/25/25223901/25/252240 37 C (98.6 F) 71 18 (!) 158/68 SpO2 Temp Source Heart Rate Source Patient Position 01/25/25223901/25/25 23101/25/25223901/25/252240 95 % Oral Monitor Sitting BP Location [...] 345 (*) Narrative: Performed by: Rodrigo Garcia, [address] [place] [address] CLIA ID: [id number] SARS-COV-2, FLU A/B, AND RSV COMBO - [...] In compliance with this authorization, please visit www.fda.gov/media/646860/download or www.fda.gov/media/024282/download to access the applicable information sheets. THYROID [...] x-ray, EKG [facility], to include gabapentin and [place] Blood work significant for an elevated glucose [...] bacteremia. Patient care discussed with: Dr. Can, [facility] hospitalist, who has agreed to accept the [...] Year: No Sanjuanita Conley MD 01/26/25 0417 [place] Phone: 1(147) 882-599906-03-2025 History of Present illness Narrative* Jennifer Waldrop [...] Ulcer Foot Right (Active) Wound Image 01/12/25 7125 Site Assessment Intact;Granulation 06/11/03 946 Linda-Wound Assessment Clean;Calloused 01/12/25946 Wound Length (cm) 0.1 cm 01/12/25946 Wound Width (cm) 0.1 cm 01/12/25946 Wound Surface Area (cm^2) 0.01 cm^2 01/12/25946 Wound Depth (cm) 0.1 cm 01/12/25946 Wound Volume (cm^3) 0.001 cm^3 01/12/25946 Wound Healing % 100 01/12/25946 Drainage Description Serosanguineous 01/12/25946 Odor None 01/12/25946 Drainage Amount Scant 01/12/25946 Treatments Cleansed 01/12/25946 Primary Dressing Collagen;Xeroform 01/05/25 1002 Secondary Dressing [...] provider verified the correct patient, procedure, equipment, manager client support, and site/side marked as required. Debridement Details [...] any reason before then. documented in this [facility]-20[facility] History of Present illness Narrative* Jennifer Waldrop [...] Diabetic Ulcer Foot Right (Active) Wound Image 06/03/25 0947 Site Assessment Intact;Granulation 01/12/25946 [place]-Wound Assessment Clean;Calloused 01/12/25946 Wound Length (cm) 0.1 cm 01/12/25946 Wound Width (cm) 0.1 cm 01/12/25946 Wound Surface Area (cm^2) 0.01 cm^2 01/12/25946 Wound Depth (cm) 0.1 cm 01/12/25946 Wound Volume (cm^3) 0.001 cm^3 01/12/25946 Wound Healing % 100 01/12/25946 Drainage Description Serosanguineous 01/12/25946 Odor None 01/12/25946 Drainage Amount Scant 01/12/25946 Treatments Cleansed 01/12/25946 Primary Dressing Collagen;Xeroform 01/05/25 1002 Secondary Dressing [...] provider verified the correct patient, procedure, equipment, manager client support, and site/side marked as required. Debridement Details [...] any reason before then. documented in this [facility]25 Hospital Discharge instructions* Patient Instructions* Liss Acevedo RN - 01/12/2025 9:45 AM EDT Follow-up Appointments: Return Appointment in 2 weeks. Call [place] [facility] at [phone], [facility] at [phone], or [facility] at [phone]. Edema/Swelling: Avoid standing for long periods of [...] diabetics Please call the wound center at [phone] if you are experiencing this. If we are closed and youare unable to reach us in person please go to the ER documented in this [facility]25 Hospital Discharge instructions* Patient Instructions* Liss Acevedo RN - 01/12/2025 9:45 AM EDT Follow-up Appointments: Return Appointment in 2 weeks. Call [place] [facility] at [phone], [facility] at [phone], or [facility] at [phone]. Edema/Swelling: Avoid standing for long periods of [...] diabetics Please call the wound center at [phone] if you are experiencing this. If we are closed and youare unable to reach us in person please go to the ER documented in this [facility] History of Present illness Narrative* Jennifer Waldrop [...] recently got a new AFO brace from [employer] and is still awaiting arrival of herdiabetic [...] 01/05/25 1002 Wound Depth (cm) 0.1 cm 01/05/251001 Wound Volume (cm^3) 0.001 cm^3 01/05/251001 Wound Healing % 100 01/05/25 1002 Drainage [...] provider verified the correct patient, procedure, equipment, manager client support, and site/side marked as required. Debridement Details [...] any reason before then. documented in this [facility] Hospital Discharge instructions* Patient Instructions* Liss Acevedo RN - 01/05/2025 9:45 AM EDT Follow-up Appointments: Return Appointment in 1 week. Call [place] [facility] at [phone], [facility] at [phone], or [facility] at [phone]. Edema/Swelling: Avoid standing for long periods of [...] diabetics Please call the wound center at [phone] if you are experiencing this. If we are closed and youare unable to reach us in person please go to the ER documented in this [facility]05-27-2025 Miscellaneous Notes* Addendum Note - Chiqui Corralespas - 01/05/2025 9:45 AM EDTEncounter addended by: Chiqui Davidson on: 01/05/2025 10:34 AM Actions taken: Flowsheet accepted documented in this [facility]-27-2025 Note* Addendum Note - Chiqui Corralespas - 01/05/2025 9:45 AM EDTEncounter addended by: Chiqui Davidson on: 01/05/2025 10:34 AM Actions taken: Flowsheet accepted [facility] CenterYzzsgy23-65-1712 Note* Addendum Note - Chiqui Andrews Stuart - 01/05/2025 9:45 AM EDTEncounter addended by: Chiqui Davidson on: 01/05/2025 10:34 AM Actions taken: Flowsheet accepted [facility] CenterAayxso19-55-5882 Note* Addendum Note - Chiqui Andrews Stuart - 01/05/2025 9:45 AM EDTEncounter addended by: Chiqui Sanchezs on: 01/05/2025 10:34 AM Actions taken: Flowsheet accepted [facility] CenterKyabds43-86-0260 Note* Addendum Note - Chiqui Corralespas - 01/05/2025 9:45 AM EDTEncounter addended by: Chiqui Sanchezs on: 01/05/2025 10:34 AM Actions taken: Flowsheet accepted [facility] CenterCunjnj98-26-6442 Note* Addendum Note - Chiqui Davidson - 01/05/2025 9:45 AM EDTEncounter addended by: Chiqui Davidson on: 01/05/2025 10:34 AM Actions taken: Flowsheet accepted [facility] CenterHmzjrl69-23-0819 History of Present illness Narrative* Jennifer Waldrop [...] recently got a new AFO brace from [employer] and is still awaiting arrival of herdiabetic [...] provider verified the correct patient, procedure, equipment, manager client support, and site/side marked as required. Debridement Details [...] any reason before then. documented in this [facility] Hospital Discharge instructions* Patient Instructions* Liss Acevedo RN - 12/29/2024 10:15 AM EDT Follow-up Appointments: Return Appointment in 1 week. Call [place] [facility] at [phone], [facility] at [phone], or [facility] at [phone]. Edema/Swelling: Avoid standing for long periods of [...] diabetics Please call the wound center at [phone] if you are experiencing this. If we are closed and youare unable to reach us in person please go to the ER documented in this [facility]05-15-2025 Telephone encounter Note* Telephone Encounter - ALEJANDRINA Urias CNP - 12/24/2024 2:00 PM EDT Good afternoon Tiffany, Can we get this patient resumed on javier 3 plus? I sent an electronic prescription to [facility]. Thanks! [facility] CenterJpdmjb37-35-9956 Miscellaneous Notes* Telephone Encounter - ALEJANDRINA Urias CNP - 12/24/2024 2:00 PM EDT Good afternoon Tiffany, Can we get this patient resumed on javier 3 plus? I sent an electronic prescription to [facility]. Thanks! documented in this [facility]05-15-2025 History of Present illness Narrative* ALEJANDRINA Urias CNP - 12/24/2024 9:30 AM EDT Images from the original note were not included. [facility] - [address] [facility] [address] Dept: [phone] Dept Loc: [phone] Visit type: Established patient Reason for Visit: [...] moved to the area. Patient relocated from [facility] to live by family. Labs ordered [...] Medrano Referring is Inpatient Primary Physician Previous Relief Charge Nurse: no Initial [facility] office visit: Inpatient [...] 1966 Years since quittin.4 Smokeless tobacco: Never Substance [...] found for: "CHOLHDLRATIO" No results found for: "[id number]" Imaging/Testing: Portions of the information within this [...] Glucose Sensor (FreeStyle Javier 3 Plus Sensor) mis, 1 each every 15 days., Disp: 2 [...] family history on file. documented in this [facility]05-07-2025 Telephone encounter Note* Telephone Encounter - Bella Duenas - 12/16/2024 5:07 PM EDT Name of caller: Alyce Contact phone number: [phone] Relationship to Patient: [facility] Provider: Marcela Practice: [facility] [place] Chief Complaint/Reason for Call: Alyce Physical therapist assistant coach with [facility] stated at visit pt had BP reading 84/60 pt was asymptomatic and stated that she felt just fine. Best time of day caller can be reached: any Patient advised that office/PCP has 24-48 business hours to return their call: Yes [facility] CenterKwsgcu92-40-2509 Miscellaneous Notes* Telephone Encounter - Bella Duenas - 12/16/2024 5:07 PM EDT Name of caller: Alyce Contact phone number: [phone] Relationship to Patient: [facility] Provider: Marcela Practice: [facility] [place] Chief Complaint/Reason for Call: Alyce Physical therapist assistant coach with [facility] stated at visit pt had BP reading 84/60 pt was asymptomatic and stated that she felt just fine. Best time of day caller can be reached: any Patient advised that office/PCP has 24-48 business hours to return their call: Yes documented in this [facility]SC[facility] GeneralBssazv60-08-7698 History of Present illness Narrative* Nallely Alas DPM - 12/11/2024 12:45 PM EDTAssociated Order(s): [...] % gel, , Topical, PRN, Marielos Blair, LAPIDARIST - PSYCHOLOGIST [facility] Allergies: Allergies Allergen Reactions Tape Rash Social [...] Site Assessment Granulation 12/11/24 1256 Linda-Wound Assessment Pale;[place] 12/11/24 1256 Wound Length (cm) 0.2 cm 12/11/24 1256 Wound Width (cm) 0.3 cm 12/11/24 1256 Wound Surface Area (cm^2) 0.06 cm^2 12/11/24 1256 Wound Depth (cm) 0.1 cm 12/11/24 1256 Wound Volume (cm^3) 0.006 cm^3 12/11/24 1256 Wound Healing % 97 12/11/24 125 Drainage Description Unable to assess 12/11/24 1256 Odor None 12/11/24 1256 Drainage Amount Scant 12/11/24 1256 Treatments Cleansed 12/11/24 125 Primary Dressing Collagen;Xeroform 12/11/24 125 Secondary Dressing 4x4 gauze 12/11/24 1256 Secured with Medfix tape 12/11/241255 Dressing Status New dressing;Clean, dry & intact 12/11/24 1256 Undermining 0.4 cm 10/09/24 1200 Undermining Clock Position of Wound 9;10;11;12 10/09/24 1200 Number of days: 83 Dermatology: Dermal ulcer plantar right midfoot with hyperkeratotic halo and central necrotic debris. The wound is boggy centrally. No erythema. Wound: Wound/Incision 09/18/24 Diabetic Ulcer Foot Right (Active) Wound Image 12/11/24 125 Site Assessment Granulation 12/11/241255 Linda-Wound Assessment Pale;[place] 12/11/241255 Wound Length (cm) 0.2 cm 12/11/241255 Wound Width (cm) 0.3 cm 12/11/241255 Wound Surface Area (cm^2) 0.06 cm^2 12/11/246 Wound Depth (cm) 0.1 cm 12/11/241255 Wound Volume (cm^3) 0.006 cm^3 12/11/24 1256 Wound Healing % 97 12/11/24 125 Drainage Description Unable to assess 12/11/24 125 Odor None 12/11/24 125 Drainage Amount Scant 12/11/24 125 Treatments Cleansed 12/11/24 125 Primary Dressing Collagen;Xeroform 12/11/24 125 Secondary Dressing 4x4 gauze 12/11/24 1256 Secured with Medfix tape 12/11/241255 Dressing Status New dressing;Clean, dry & intact [...] DPM 12/11/2024 2:49 PM documented in this [facility]-02-[facility] Hospital Discharge instructions* Patient Instructions* Liss Acevedo RN - 12/11/2024 12:45 PM EDT Follow-up Appointments: Return Appointment in 2 weeks. Call [place] [facility] at [phone], [facility] at [phone], or [facility] at [phone]. Edema/Swelling: Avoid standing for long periods of [...] diabetics Please call the wound center at [phone] if you are experiencing this. If we are closed and youare unable to reach us in person please go to the ER documented in this [facility]04-26-[facility]25 Hospital course Narrative* Shane Rodriguez MD - 12/05/2024 11:52 AM EDT [facility] Hospitalist Discharge Summary Hanna Nelson : [...] Patient is a 84-year-old female admitted to [facility] via the emergency department with acute metabolic and infectious encephalopathy, she has UTI due to Klebsiella she finished 3 doses of ceftriaxone, clinically improved she was afebrile throughout the stay, no leukocytosis, she also has fluctuating blood sugars, she is a type II DM on insulin, endocrinology followed and adjusted the dose of insulin,, she has a 5-second pause on the tailor helper, evaluated by cardiology and determined no further [...] 5 MG tablet Commonly known as: Ditropan Tradannanta 5 MG tablet Generic drug: linaGLIPtin Take 1 tablet (5 mg) by mouth daily. STOP taking these medications insulin degludec 100 UNIT/ML injection Commonly known as: Tresiba FlexTouch Where to Get Your Medications These medications were sent to [facility] - [place], [place] - [address] [facility] [address] atenolol 25 MG tablet insulin glargine 100 UNIT/ML injection Insulin Lispro 100 UNIT/ML solution injection Recommended Follow-up: Dorothy Medrano [address] [facility] [address] Complexity of Follow up: [] Moderate Complexity: follow up within 7-14 calendar days (81966) [x] Severe Complexity: follow up within 7 calendar days (81210) Follow up Testing, Pending results or Referrals [...] been spent in discharging the patient. Signed: @ME @ Division of Hospitalist Medicine Inpatient Medical Services 12/05/2024, 2:14 PM This report was created using the Skubana Speaking voice- activated system. Despiteprompt dictation and careful editorial review, there may be subtle contextual errors in this report, due to misrecognition of the spoken word. documented in this [facility]04-26-2025 [facility] 12-05-2024 Plan of care note* [...] Promote nutritional intake Outcome: Adequate for Discharge [facility] CenterKriyio55-96-0562 Miscellaneous Notes* Care Plan - Marielle Scott [...] : 1940 All Providers Sent Referral Name: [facility], Microm[place]. Phone: [phone] Address: [address] [place] [address] [place] [address] * Care Plan - Yanira Simmons RN [...] They would like to resume services with [facility] when discharge. Referral sent in Care port. * Care Coordination - Amita Genao RN - 12/04/2024 2:55 PM EDT Care Management Progress Note Chart reviewed. PT/OT saw and are recommending [facility] PT/OT at ID. [facility] liaison secure chatted to follow up. Length [...] difficulties affording scripts. Pt is current with [facility]. Uses [facility]. [facility] liaison made aware. Pt uses [facility] in [place] for scripts. Pt has walker, rollator and cane . Will continue to follow. Length of Stay (Days): 0 GMLOS: No GMLOS Documented * Significant Event - Shane Rodriguez MD - 12/03/2024 11:50 AM EDT Patient seen and examined, admitted earlier by the home economics expert, see H&P for details, patient admitted for [...] and she is on javier and sees customer accounts advisor will have endocrinology see her while in [...] optimal cardiac output and hemodynamic stability 12/03/2024 0145 by Scott Aaron RN Outcome: Progressing 12/03/2024 [...] remain intact Outcome: Progressing documented in this [facility] Note* Care Coordination - Unknown Case Management - 12/05/2024 10:13 AM EDT Patient Choice Patient Name: HANNA NELSON Date of : 1940 All Providers Sent Referral Name: [facility]. Phone: [phone] Address: [address] [place] [address] [facility] CenterCfzpig69-57-4992 Note* Care Coordination - Unknown Case Management - 12/05/2024 10:13 AM EDT Patient Choice Patient Name: HANNA NELSON Date of : 1940 All Providers Sent Referral Name: [facility]. Phone: [phone] Address: [address] [facility] [address] [place] [address] [facility] HospitalLqxdss46-55-9071 History of Present illness Narrative* Ashleigh Jaz Ross, LAPIDARIST - PSYCHOLOGIST PRIVATE PRACTICE - 12/04/2024 5:55 PM EDT Department of Internal Medicine Division of Endocrinology, Diabetes, & Metabolism Endocrinology Note Patient Name: Hanna Nelson : 1940 AGE: 84 y.o. Room/Bed: [facility] B Admission Date: 12/02/2024 Visit Date: 12/04/2024 Reason for Endocrine Consult: Type 2 diabetes mellitus with hyperglycemia on insulin Provider/Team Requesting Consult: Shane Rodriguez PCP: Dorothy Medrano Outpt Relief Charge Nurse: No ASSESSMENT: Type 2 diabetes with hyperglycemia Urinary tract infection A-fib with RVR Elevated creatinine Wound to right foot PLAN: Increase Lantus 32 units Increase Humalog to 07/23/12 units TID with meals Will hold tradjenta while inpatient ICU goal <180 GMF goal <150 POCT BG ACHS Hypoglycemia management per protocol Carb controlled diet Most recent TSH-3.34- Continue levothyroxine 112 mcg daily ANTICIPATED ENDOCRINE [...] 2 Onset of DM: age 49 - [id number] Home DM Medication Regimen: Tradjenta 5 mg [...] controlled blood sugars She is wearing a jaiver 3 at home she is using her [...] found for: "CHOLHDLRATIO" No results found for: "KNYF78DUG" Lab Results Component Value Date TSH 3.34 09/21/2024 Radiology reportsas per the Radiologist Radiology: US renal complete Result Date: 12/03/2024 [facility] Name[facility]ELSON [facility] 1940 [id number] Exam Date/Time: 12/03/2024 12:02 Procedure: US RENAL [...] glucose meter Result Date: 12/03/2024 Performed by: [facility], [address] [place] [address] CLIA ID: [id number] ECG 12 lead Atrial fibrillation Borderline left axis deviation Borderline T wave abnormalities Borderline prolonged QT interval No previous ECG available for comparison Electronically Signed On 12-03-2024 10:10:35 EDT by Vero Byrd POCT glucose meter Result Date: 12/03/2024 Performed by: [facility], [address] [place] [address] CLIA ID: [id number] POCT glucose meter Result Date: 12/03/2024 Performed by: [facility], [address] [place] [address] CLIA ID: [id number] CT head wo IV contrast Result Date: [...] 12/04/2024 12:10 PM EDT Hospitalist Progress Note 12/04/[id number]: Please secure chat me for patient care issues. [phone]: Please secure chat [facility] Hospitalist for any issues. Subjective: Admit Date: 12/02/2024 PCP: Dorothy Medrano Room#: B2-251/B2-251 B Brief History: Patient is an 84-year-old female who was admitted to [facility] with alteredsensorium and delirium, being treated for [...] diet Regular; 5 carb choices (75 gm/meal) @[id number]@ 24HR INTAKE/OUTPUT: Intake/Output Summary (Last 24 hours) at 12/04/2024 1210 Last data filed at 12/03/2024 2038 Gross per 24 hour Intake 200 ml [...] Contact: Hi Nelson Relation: Son Preferred language: Indonesian Clammer needed? No Secondary Emergency Contact: Melba Black [facility] Mobile Relation: Daughter Shane Rodriguez MD Division of Hospitalist Medicine [facility] PAGER: Epic chat * Tiarra Soria, PT - 12/04/2024 11:13 AM EDT Images from the original note were not included. PHYSICAL THERAPY [facility] Initial Evaluation Name/MRN: Hanna Nelson ([id number]) Evaluation Date: 12/04/2024 Date of : 1940 Admission Date: 12/02/2024 9:17 PM Age: 84 y.o. Room/Bed: B2251/B2-251 B Discharge Recommendation: Home with assist PRN, [...] in order to return homewith assist and [facility] PT. Admitting Diagnosis: Pt admitted with altered [...] of right foot with necrosis of muscle ([facility]) 10/16/2024 Diabetic ulcer of right foot associated with diabetes mellitus due to underlying condition, with necrosis of muscle ([facility]) 10/09/2024 Uncontrolled type 2 diabetes mellitus with hyperglycemia ([facility]) 09/18/2024 Medical Precautions: No active isolations Proper [...] Responsibilities: Independent Receives Help From: None Active Transportation Modeler: Yes Prior Level of Function Prior Level [...] Raw Score (No Stairs) : 17 [facility] Score: Walked 25 ft or more (i.e. [...] of Care supervision is transferred to a [facility] Physical Therapist. Goals and/or treatment plan was established in collaboration with patient/family/other representatives. * Elkin Brewster - 12/04/2024 10:30 AM EDT Images from the original note were not included. OCCUPATIONAL THERAPY [facility] Initial Evaluation Name/MRN: Hanna Nelson ([id number]) Evaluation Date: 12/04/2024 Date of : 1940 Admission Date: 12/02/2024 9:17 PM Age: 84 y.o. Room/Bed: B2-251/B2-251 B Discharge Recommendation: Home with Home health [...] deficits provided. Recommend plan of discharge to [facility] OT. Admitting Diagnosis: Confusion and ulceration of [...] of right foot with necrosis of muscle ([facility]) 10/16/2024 Diabetic ulcer of right foot associated with diabetes mellitus due to underlying condition, with necrosis of muscle (HCC) 10/09/2024 Uncontrolled type 2 diabetes mellitus with hyperglycemia ([facility]) 09/18/2024 Medical Precautions: No active isolations Proper [...] Responsibilities: Independent Receives Help From: None Active Transportation Modeler: Yes Prior Level of Function Prior Level [...] of Care supervision is transferred to a [facility] Therapy Services Occupational Therapist. Goals and/or [...] - KYREE - 12/04/2024 10:13 AM EDT [facility] Medical [facility] Geriatric Medicine Inpatient Consult Service Admission [...] Improving. Continue plan. Cognitive Impairment --Followed by [facility]. Concern for Alzheimer's Dementia. --Lives alone, family provides assistance --Uncontrolled DM and episodes of hyperglycemia likely impacting cognition also. (A1C did improve from 12.2 to 9.0) --Recommend avoiding anticholinergic medications. Consider stopping Oxybutynin outpatient. --12/04: Stable. Follow up with [facility] - next appointment 01/07. Debility --contributing factors include DM, Neuropathy --uses rollator at times at baseline --PT and OT --Anticipate discharge home with [facility] --Vit D level 18 in Sep 2024 [...] DM, HLD, HTN, Hypothyroidism, Neuropathy presented to [facility] on 12/02/24 with complaints of confusion. Admitted [...] at 12/04/2024 1013 Last data filed at 12/03/20242037 Gross per 24 hour Intake 500 ml [...] BID, Karolina Cooper MD, 50 mg at 12/04/24 0847 atorvastatin (Lipitor) tablet 40 mg, 40 mg, Oral, Daily, Karolina Cooper MD, 40 mg at 12/04/24 0847 cefTRIAXone (Rocephin) 1,000 mg in sodium chloride [...] 26 Units, 26 Units, SubCUTAneous, Nightly, ALEJANDRINA Cat CNP Insulin Lispro (Humalog) injection 0-6 Units, 0-6 Units, SubCUTAneous, TID WC, ALEJANDRINA Cat CNP, 4 Units at 12/04/24 0847 insulin lispro (HumaLOG) pen injection 8 Units, 8 Units, SubCUTAneous, TID WC, Ashleigh Ross, LAPIDARIST - PSYCHOLOGIST PRIVATE PRACTICE, 8 Units at 12/04/24 0848 levothyroxine (Synthroid, Levoxyl) tablet 112 mcg, 112 mcg, Oral, qAM AC, Karolina Cooper MD, 112 mcg at 12/04/24 0631 linaGLIPtin (Tradjenta) tablet 5 mg, 5 mg, Oral, Daily, Shane Rodriguez MD, 5 mg at 12/04/24 0847 melatonin tablet 3 mg, 3 mg, Oral, Nightly PRN, Day Cardenas, LAPIDARIST - PSYCHOLOGIST PRIVATE PRACTICE ondansetron ODT (Zofran-ODT) disintegrating tablet 4 mg, [...] 3.34 09/21/2024 Lab Results Component Value Date [id number] 09/21/2024 Lab Results Component Value Date [...] assess Fluid Accumulation: No significant fluid accumulation [employer] Teacher Strength: Not Performed Nutrition Assessment: Pt is an 84 y/o female admitted to [facility] for complaints of confusion. Pt reportedly has [...] On: Kcal/kg Weight Used for Energy Requirements: [place] Weight for Energy Calculation (kg): 68 kg Total Energy Requirements (kcals/day): 0225-3615 kcals (25-30 kcals/kg) Weight Used for Protein Requirements: [place] Weight in Kg Used for Protein Requirements: [...] lb) (10/15/24) % Weight Change (Calculated): 1.5 [place] Body Weight (lbs) (Calculated): 150 lbs [place] Body Weight (Kg) (Calculated): 68 kg % [place] Body Weight (Calculated): 134.7 % BMI (kg/m2) [...] Oral Nutrition Supplement Liz Novoa RD Contact: *[phone] or via Secure Chat documented in this [facility]04-25-2025 Plan of care note* Care Plan - Yanira Simmons RN - 12/04/2024 4:48 PM EDT Problem: Neurosensory - Adult Goal: Achieves stable or improved neurological status Outcome: Progressing Problem: Respiratory - Adult Goal: Achieves optimal ventilation and oxygenation Outcome: Progressing Problem: Cardiovascular - Adult Goal: Maintains optimal cardiac output and hemodynamic stability Outcome: Progressing [facility] CenterJpsggs51-92-9301 Hospital Discharge instructions* Discharge Instr - LAURA* [...] Contact: Hi Nelson Relation: Son Preferred language: Indonesian Clammer needed? No Secondary Emergency Contact: Melba Black [employer] [facility] Mobile Relation: Daughter Past Surgical History: Past [...] 4.8 oz) Mental Status: {LAURA Patient Mental Status:36336} IV Access: {LAURA IV Access:36701} Nursing Mobility/ADLs: Walking {RADHA ADL:::"Independent"} Transfer {RADHA ADL:::"Independent"} Bathing {RADHA ADL:::"Independent"} Dressing {RADHA ADL:::"Independent"} Toileting {RADHA ADL:::"Independent"} Feeding {RADHA ADL:::"Independent"} Registered Client Associate {RADHA ADL:::"Independent"} Med Delivery {yes/no:62947} Wound Care Documentation and Therapy: Wound/Incision 09/18/24 Diabetic Ulcer Foot Right (Active) Site Assessment Unable to assess 12/03/241929 Linda-Wound Assessment Red 12/03/24 0140 Wound Length (cm) 2 cm 12/03/24 0140 Wound Width (cm) 1.8 cm 12/03/24 014 Wound Surface Area (cm^2) 3.6 cm^2 12/03/24 0140 Wound Depth (cm) 0.1 cm 12/03/24 0140 Wound Volume (cm^3) 0.36 cm^3 12/03/24 0140 Wound Healing % -80 12/03/24 0140 Odor None 12/03/24 0140 Drainage Amount Small 12/03/24 0140 Treatments Site care 12/03/24 0140 Primary Dressing Xeroform;Dry dressing 12/03/24 0140 Dressing Status Clean, dry & intact 12/03/241929 Number of days: 76 Elimination: Continence: Bowel: {yes/no:16714} Bladder: {yes/no:27191} Urinary Catheter: {LAURA Urinary Catheter:80168} Colostomy/Ileostomy/Ileal Conduit: {YES / NO:} Date of Last BM: Intake/Output Summary (Last 24 hours) at 12/04/2024 1505 Last data filed at 12/03/20242037 Gross per 24 hour Intake 200 ml Output 400 ml Net -200 ml I/O last 3 completed shifts: In: 1790 (19.5 mL/kg) [P.O.:740; IV Piggyback:1050] Out: 1745 (19 mL/kg) [Urine:1745 (0.5 mL/kg/hr)] Weight: 91.8 kg Safety Concerns: {LAURA Safety Concerns:05225} Impairments/Disabilities: {LAURA Impairments/Disabilities:64136} Nutrition Therapy: Current Nutrition Therapy: {LAURA Diet List:22178} Routes of Feeding: {routes of feedin} Liquids: {liquid consistency:60061} Daily Fluid Restriction: {daily fluid restriction:04116} Last Modified Barium Swallow with Video (Video Swallowing Test): {done not done:51207} Treatments at the Time of Hospital Discharge: Respiratory Treatments: Oxygen Therapy: {Therapy; copd oxygen:72602} Ventilator: {LAURA Ventilator:71665} Rehab Therapies: {GEN THERAPY DISCIPLINE SCAL:9826081} Weight Bearing Status/Restrictions: {POD WEIGHT BEARIN} Other Medical Equipment (for information only, NOT a DME order): {Assistive Devices DME:49090} Other Treatments: Patient's personal belongings (please select all that are sent with patient): {LAURA Patient Belongings:74976} RN SIGNATURE: {E-signature:92833} CASE MANAGEMENT/SOCIAL WORK SECTION Inpatient Status Date: Discharging to Facility/ Agency Name: [facility] [phone] Dialysis Facility (if applicable) Name: Address: Dialysis Schedule: Phone: Fax: Physical Plant Employee/Furnace Hand signature: {E-signature:64885} PHYSICIAN SECTION Name: Hanna Nelson Prognosis: {Rehab Prognosis:45388} Condition at Discharge: {Patient Condition:42978} Rehab Potential (if transferring to Rehab): {Rehab Prognosis:40667} Recommended Labs or Other Treatments After Discharge: The individual is being admitted to a nursing facility directly from an [facility] or a unit of a [facility] that is not operated by or licensed by [facility] under section 5119.14 or 5160-3-15.1 5 The individual requires the level of services provided by a nursing facility for the condition for which he or she was treated in the hospital and, Physician Certification: I certify the above information and transfer of Hanna Nelson is necessary for the continuing treatment of the diagnosis listed and that she requires {LAURA Level of Care:64044} for {greater less than:26354} 30 days. Update Admission H&P: {LAURA Changes in H&P:41392} PHYSICIAN SIGNATURE: {E-signature:22789} documented in this [facility]04-25-2025 Note* Home Care - Bella Meléndez RN - 12/04/2024 2:58 PM EDT Spoke to patient and son regarding home care services. They would like to resume services with [facility] when discharge. Referral sent in Care port. [facility] [id number] Note* Home Care - Bella Meléndez RN - 12/04/2024 2:58 PM EDT Spoke to patient and son regarding home care services. They would like to resume services with [facility] when discharge. Referral sent in Care port. [facility] CenterGtwgyz37-00-0133 NoteSpoke to patient and son regarding home care services. They would like to resume services with [facility] when discharge. Referral sent in Care port. [facility]04-25-2025 Note* Care Coordination - Amita Genao RN - 12/04/2024 2:55 PM EDT Care Management Progress Note Chart reviewed. PT/OT saw and are recommending [facility] PT/OT at ID. [facility] liaison secure chatted to follow up. Length of Stay (Days): 1 GMLOS: 2.8 [facility] CenterFyvmrt45-58-1381 Note* Care Coordination - Amita Genao RN - 12/04/2024 2:55 PM EDT Care Management Progress Note Chart reviewed. PT/OT saw and are recommending [facility] PT/OT at ID. [facility] liaison secure chatted to follow up. Length of Stay (Days): 1 GMLOS: 2.8 [facility] CenterCihoeh99-96-4359 NoteCare Management Progress Note Chart reviewed. PT/OT saw and are recommending [facility] PT/OT at ID. [facility] liaison secure chatted to follow up. Length of Stay (Days): 1 GMLOS: 2.8[facility]04-25-2025 Consult note* Yohannes Britton MD - 12/04/2024 1:06 PM EDTAssociated Order(s): IP CONSULT TO CARDIOLOGY Images from the original note were not included. [facility] CARDIAC PROGRESSIVE CARE UNIT [facility] [address] [place] [id number] Dept: [phone] This is an 84-year-old woman seen for a pause. Her history includes Paroxysmal atrial fibrillation. I saw a reference to this from a note from [facility], where she used to live until May of this year when she moved in [place] to be closer to her family. 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 She does not use alcohol. She lives alone but has multiple family members near her home in [place]. She is not being followed by cardiology. [...] follow-up. She will need to see a machine records units supervisor periodically for her history of atrial fibrillation and anticoagulation use. Any further cardiac workup can be done as an outpatient. [facility] Phone: [phone] Consult note* Yohannes Britton MD - 12/04/2024 1:06 PM EDTAssociated Order(s): IP CONSULT TO CARDIOLOGY Images from the original note were not included. [facility] CARDIAC PROGRESSIVE CARE UNIT [facility] [address] [place] [address] Dept: [phone] This is an 84-year-old woman seen for a pause. Her history includes Paroxysmal atrial fibrillation. I saw a reference to this from a note from [facility], where she used to live until May of this year when she moved in [place] to be closer to her family. 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 She does not use alcohol. She lives alone but has multiple family members near her home in [place]. She is not being followed by cardiology. [...] follow-up. She will need to see a machine records units supervisor periodically for her history of atrial fibrillation and anticoagulation use. Any further cardiac workup can be done as an outpatient. [facility] * Ashleigh Jaz Ross, LAPIDARIST - PSYCHOLOGIST PRIVATE PRACTICE - 12/03/2024 2:02 PM EDTAssociated Order(s): IP CONSULT TO ENDOCRINOLOGY Department of Internal Medicine Division of Endocrinology, Diabetes, & Metabolism Endocrinology Note Patient Name: Hanna Nelson : 1940 AGE: 84 y.o. Room/Bed: [facility] B Admission Date: 12/02/2024 Visit Date: 12/03/2024 Reason for Endocrine Consult: Type 2 diabetes mellitus with hyperglycemia on insulin Provider/Team Requesting Consult: Shane Rodriguez PCP: Dorothy Medrano Outpt Relief Charge Nurse: No ASSESSMENT: Type 2 diabetes with hyperglycemia [...] 2 Onset of DM: age 49 - [id number] Home DM Medication Regimen: Tradjenta 5 mg [...] found for: "CHOLHDLRATIO" No results found for: "[id number]" Lab Results Component Value Date TSH 3.34 [...] glucose meter Result Date: 12/03/2024 Performed by: [facility], [address] [place] [address] CLIA ID: [id number] ECG 12 lead Atrial fibrillation Borderline left axis deviation Borderline T wave abnormalities Borderline prolonged QT interval No previous ECG available for comparison Electronically Signed On 12-03-2024 10:10:35 EDT by Vero Byrd POCT glucose meter Result Date: 12/03/2024 Performed by: [facility], [address] [place] [address] CLIA ID: [id number] POCT glucose meter Result Date: 12/03/2024 Performed by: [facility], [address] [place] [address] CLIA ID: [id number] CT head wo IV contrast Result Date: [...] MD at 12/04/2024 4:04 PM EDT * ALEJANDRINA Latif CNP - 12/03/2024 1:45 PM EDTAssociated Order(s): IP CONSULT TO GERIATRICS [facility] Geriatric Medicine Inpatient Consult Service Admission [...] missing home medications Cognitive Impairment --Followed by [facility]. Concern for Alzheimer's Dementia. --Lives alone, family [...] DM, HLD, HTN, Hypothyroidism, Neuropathy presented to [facility] on 12/02/24 with complaints of confusion. Admitted for possible UTI and uncontrolled blood sugars. Known to geriatrics seen during September hospital admission and then outpatient follow up at the [facility] with Dr. Wright on 10/15/24. Concern for mild to moderate stage Alzheimer's Dementia. MRI brain ordered. MoCA 10/30 (score may have been impacted by hyperglycemia). [...] ill. Advance Care Planning Healthcare Power of Parimutuel Ticket Cashier: Yes, son Hi, then daughter Financial Power of Parimutuel Ticket Cashier: Yes, amber Do, then daughter Living Will:Yes Code Status: Full [...] 361 ms QTC Interval 493 ms P Eastman 0 degrees QRS Eastman -21 degrees T Wave Eastman 11 degrees NV Interval 0 ms POCT glucose meter Collection [...] CNP 12/03/24 1:45 PM documented in this [facility]04-25-2025 Plan of care note* Care Plan - [...] Progressing Goal: Promote nutritional intake Outcome: Progressing [facility] CenterXnzqox70-72-2120 Note* Care Coordination - Amita Genao RN [...] difficulties affording scripts. Pt is current with [facility]. Uses [facility]. [facility] liaison made aware. Pt uses [facility] in [place] for scripts. Pt has walker, rollator and cane . Will continue to follow. Length of Stay (Days): 0 GMLOS: No GMLOS Documented [facility] CenterBxvdet92-72-9523 Note* Care Coordination - Amita Genao RN [...] difficulties affording scripts. Pt is current with [facility]. Uses [facility]. [facility] liaison made aware. Pt uses [facility] in [place] for scripts. Pt has walker, rollator and cane . Will continue to follow. Length of Stay (Days): 0 GMLOS: No GMLOS Documented [facility] [id number] Consult note* Ashleigh Ross, LAPIDARIST - PSYCHOLOGIST PRIVATE PRACTICE - 12/03/2024 2:02 PM EDTAssociated Order(s): IP CONSULT TO ENDOCRINOLOGY Department of Internal Medicine Division of Endocrinology, Diabetes, & Metabolism Endocrinology Note Patient Name: Hanna Nelson : 1940 AGE: 84 y.o. Room/Bed: [facility]/[address] Admission Date: 12/02/2024 Visit Date: 12/03/2024 Reason for Endocrine Consult: Type 2 diabetes mellitus with hyperglycemia on insulin Provider/Team Requesting Consult: Shane Rodriguez PCP: Dorothy Medrano Outpt Relief Charge Nurse: No ASSESSMENT: Type 2 diabetes with hyperglycemia [...] 2 Onset of DM: age 49 - [id number] Home DM Medication Regimen: Tradjenta 5 mg [...] found for: "CHOLHDLRATIO" No results found for: "[id number]" Lab Results Component Value Date TSH 3.34 09/21/2024 Radiology reportsas per the Radiologist Radiology: US renal complete Result Date: 12/03/2024 Patient Name: HANNA NELSON : 1940 [facility]#: [id number] Exam Date/Time: 12/03/2024 12:02 Procedure: US RENAL [...] glucose meter Result Date: 12/03/2024 Performed by: [facility], [address] [place] [address] CLIA ID: [id number] ECG 12 lead Atrial fibrillation Borderline left axis deviation Borderline T wave abnormalities Borderline prolonged QT interval No previous ECG available for comparison Electronically Signed On 12-03-2024 10:10:35 EDT by Vero Byrd POCT glucose meter Result Date: 12/03/2024 Performed by: [facility], [address] [place] [address] CLIA ID: [id number] POCT glucose meter Result Date: 12/03/2024 Performed by: [facility], [address] [place] [address] CLIA ID: [id number] CT head wo IV contrast Result Date: 12/02/2024 Patient Name: HANNA NELSON : 1940 [facility]#: [id number] Exam Date/Time: 12/02/2024 22:30 Procedure: CT HEAD [...] Shahid MD at 12/04/2024 4:04 PM EDT [facility] CenterAijoxf93-84-5161 Consult note* Day CardenasALEJANDRINA CNP - 12/03/2024 1:45 PM EDTAssociated Order(s): IP CONSULT TO GERIATRICS [facility] Geriatric Medicine Inpatient Consult Service Admission [...] missing home medications Cognitive Impairment --Followed by [facility]. Concern for Alzheimer's Dementia. --Lives alone, family [...] DM, HLD, HTN, Hypothyroidism, Neuropathy presented to [facility] on 12/02/24 with complaints of confusion. Admitted for possible UTI and uncontrolled blood sugars. Known to geriatrics seen during September hospital admission and then outpatient follow up at the [facility] with Dr. Wright on 10/15/24. Concern for [...] ill. Advance Care Planning Healthcare Power of Parimutuel Ticket Cashier: Yes, son Hi, then daughter Financial Power of Parimutuel Ticket Cashier: Yes, son Hi, then daughter Living Will:Yes [...] 361 ms QTC Interval 493 ms P Eastman 0 degrees QRS Eastman -21 degrees T Wave Eastman 11 degrees NV Interval 0 ms POCT glucose meter Collection [...] you ALEJANDRINA Esteban CNP 12/03/24 1:45 PM [facility] CenterGfemgp83-10-4539 manager strategic Note* Significant Event - Shane Rodriguez MD - 12/03/2024 11:50 AM EDT Patient seen and examined, admitted earlier by the home economics expert, see H&P for details, patient admitted for [...] and she is on javier and sees customer accounts advisor will have endocrinology see her while in the hospital. Patient is aware of the carb controlled diet. Eating well, does not require IV fluids Check renal ultrasound Total time spent 45 minutes prolonged time. [place] [id number] Note* Home Care - Bella Meléndez RN - 12/03/2024 11:09 AM EDT Patient is currently active with [facility]. The patients current certification period will on 12/03/2024. The patient is currently receiving SN, PT services through the agency. Home CareLiaison to continue to follow. [place] [id number] Note* Home Care - Bella Meléndez RN - 12/03/2024 11:09 AM EDT Patient is currently active with [facility]. The patients current certification period will on 12/03/2024. The patient is currently receiving SN, PT services through the agency. Home CareLiaison to continue to follow. [facility] CenterHhfqpn15-28-2616 Nurse Note* Scott Aaron RN - 12/03/2024 3:29 AM EDT 12/03/24 03212/03/24 0329 Urine Output/Assessment Voided Urine (mL) 420 mL -- Post Void Residual (mL) -- 375 mL Pt denies any discomfort/feeling of urgency to urinate after voiding. Dr. Cooper notified via [employer]t. [facility] CenterMincca23-89-0275 Nurse Note* Scott Aaron RN - 12/03/2024 3:29 AM EDT 12/03/24 0325 12/03/24 0329 Urine Output/Assessment Voided Urine (mL) 420 mL -- Post Void Residual (mL) -- 375 mL Pt denies any discomfort/feeling of urgency to urinate after voiding. Dr. Cooper notified via [employer]. * Scott Aaron RN - 12/03/2024 3:02 AM EDT Pt a fib RVR - sustaining HR 110-130s. Pt does have history of a fib. Dr Cooper notified via Secure Chat. * Scott Aaron RN - 12/03/2024 1:28 AM EDT Pt has arrived to [place]. Admission database completed with pt children at bedside. Pt A&O x1 at this time. Dr. Cooper notified of pt arrival via SecureChat. Pt resting in bed. Bed alarm on, call light within reach. * Scott Aaron RN - 12/02/2024 11:37 PM EDT Chart accessed pending transfer to [facility]. documented in this [facility]04-24-2025 Nurse Note* Scott Aaron RN - 12/03/2024 3:02 AM EDT Pt a fib RVR - sustaining HR 110-130s. Pt does have history of a fib. Dr Cooper notified via Secure Chat. [facility] [id number] History and physical note* Karolina Cooper MD - 12/03/2024 2:58 AM EDT Images from the original note were not included. History and Physical [facility] Hanna Nelson : 1940 AGE 84 y.o. YEARS [...] Time spent on admission 12/03/2024 Hanna Nelson [id number] Any scheduled follow up appointments Future Appointments Date Time Provider Department Center 12/04/2024 12:45 PM Nallely Alas DPM [facility] None 12/24/2024 9:30 AM ALEJANDRINA Urias CNP [facility] None 01/07/2025 1:00 PM Kraig Wright MD [facility] None Extended Emergency Contact Information Primary Emergency Contact: Hi Nelson Relation: Son Preferred language: Indonesian Clammer needed? No Secondary Emergency Contact: Melba Black [facility] Mobile Relation: Daughter Portions of this note may be electronically transcribed. Please forward a copy of this H&P to the primary care physician. [facility] [employer] Work Phone: [phone]) 354-568504-24-2025 [facility]04-24-2025 History and physical note* Karolina Cooper MD - 12/03/2024 2:58 AM EDT Images from the original note were not included. History and Physical [facility] Hanna Nelson : 1940 AGE 84 y.o. YEARS [...] Time spent on admission 12/03/2024 Hanna Nelson [id number] Any scheduled follow up appointments Future Appointments Date Time Provider Department Center 12/04/2024 12:45 PM Nallely Alas DPM [facility] None 12/24/2024 9:30 AM Priscila Laguerre APRN - PSYCHOLOGIST PRIVATE PRACTICE [facility] None 01/07/2025 1:00 PM Kraig Wright MD [facility] None Extended Emergency Contact Information Primary Emergency Contact: Hi Nelson Relation: Son Preferred language: Indonesian Clammer needed? No Secondary Emergency Contact: Melba Black [facility] Mobile Relation: Daughter Portions of this note may be electronically transcribed. Please forward a copy of this H&P to the primary care physician. documented in this [facility]04-24-2025 Plan of care note* Care Plan - Scott Aaron RN - 12/03/2024 1:45 AM EDT Problem: Neurosensory - Adult Goal: Achieves stable or improved neurological status 12/03/2024144 by Scott Aaron RN Outcome: Progressing 12/03/2024117 by Scott Aaron RN Outcome: Progressing Goal: Achieves maximal functionality and self care 12/03/2024144 by Scott Aaron RN Outcome: Progressing 12/03/2024117 by Scott Aaron RN Outcome: Progressing Problem: Respiratory - Adult Goal: Achieves optimal ventilation and oxygenation 12/03/2024 0145 by Scott Aaron RN Outcome: Progressing 12/03/2024 0118 by Scott Aaron RN Outcome: Progressing Problem: Cardiovascular - Adult Goal: Maintains optimal cardiac output and hemodynamic stability 12/03/2024 0145 by Scott Aaron RN Outcome: Progressing 12/03/2024 0118 by Scott Aaron RN Outcome: Progressing [place] [id number] Nurse Note* Scott Aaron RN - 12/03/2024 1:28 AM EDT Pt has arrived to [place]. Admission database completed with pt children at bedside. Pt A&O x1 at this time. Dr. Cooper notified of pt arrival via SecureChat. Pt resting in bed. Bed alarm on, call light within reach. [place] [id number] Plan of care note* Care Plan - [...] Oral mucous membranes remain intact Outcome: Progressing [address]Vznucp41-05-1223 Emergency department Note* Lashell Martinez RN - 12/03/2024 12:00 AM EDT Phoned [facility]. Hand off report given to KENNA Chavez. [id number] Emergency department Note* Lashell Martinez RN - 12/03/2024 12:00 AM EDT Phoned [facility] 2[facility]. Hand off report given to KENNA [...] 12/02/2024 9:09 PM EDT Emergency Department Encounter [facility] ED Patient: Hanna Nelson : 1940 Date [...] nursing notes. Physical Exam ED Triage Vitals [12/02/24 2113] Temp Heart Rate Resp BP 36.6 C [...] I spoke with the Dr. Cooper at [facility] who agreed to accept patient for admission. Diagnoses as of 12/02/24 0767 Confusion Cystitis Right arm weakness ED Medications managed: Medications gabapentin (Neurontin) capsule 300 mg (has no administration in time range) sodium chloride 0.9 % bolus 1,000 mL (0 mL IntraVENous Stopped 12/02/242236) cefTRIAXone (Rocephin) 1,000 mg in sodium chloride 0.9 % 50 mL IVPB Mini-Bag Plus (1,000 mg IntraVENous New Bag 12/02/24 0989) Patients symptoms are consistent with sepsis, severe [...] 12/02/2024 9:09 PM EDT Patient arrived via [facility] from home to room 6. Medics state patient's family went to check on patient today and discovered she had not been taking her medications x 2 days. Family states patient is not acting like herself A&Ox1. Patient has been having recurrent UTI's for the past couple of months and gets confused when she gets one. documented in this [facility]04-23-2025 Nurse Note* Scott Aaron RN - 12/02/2024 11:37 PM EDT Chart accessed pending transfer to [facility]. [id number] Emergency department Note* Lashell Martinez RN - 12/02/2024 10:00 PM EDT Patient linda area cleansed and new adult brief placed on patient. [address]Tcgmhu75-93-6439 Emergency department Note* Lashell Martinez RN - 12/02/2024 9:50 PM EDT Patient assisted to bedpan to void. [facility] [id number] Emergency department Note* Lashell Martinez RN - 12/02/2024 9:30 PM EDT Son and daughter to bedside. [facility] [id number] Emergency department Triage note* Lashell Martinez RN - 12/02/2024 9:09 PM EDT Patient arrived via [facility] from home to room 6. Medics state patient's family went to check on patient today and discovered she had not been taking her medications x 2 days. Family states patient is not acting like herself A&Ox1. Patient has been having recurrent UTI's for the past couple of months and gets confused when she gets one. [facility] CenterRpotel63-40-7772 Physician Emergency department Note* León Marie DO - 12/02/2024 9:09 PM EDT Emergency Department Encounter [facility] ED Patient: Hanna Nelson : 1940 Date [...] nursing notes. Physical Exam ED Triage Vitals [12/02/24 2113] Temp Heart Rate Resp BP 36.6 C [...] I spoke with the Dr. Cooper at [facility] who agreed to accept patient for admission. Diagnoses as of 12/02/24 3047 Confusion Cystitis Right arm weakness ED Medications managed: Medications gabapentin (Neurontin) capsule 300 mg (has no administration in time range) sodium chloride 0.9 % bolus 1,000 mL (0 mL IntraVENous Stopped 12/02/242236) cefTRIAXone (Rocephin) 1,000 mg in sodium chloride 0.9 % 50 mL IVPB Mini-Bag Plus (1,000 mg IntraVENous New Bag 12/02/24 4503) Patients symptoms are consistent with sepsis, severe [...] [employer] León Marie DO 12/03/24 0004 [facility] CenterUmglog35-60-2590 History of Present illness Narrative* Marielos Blair, ALEJANDRINA - PSYCHOLOGIST PRIVATE PRACTICE - 11/27/2024 8:45 AM EDTAssociated Order(s): Debridement Post-Procedure Diagnose(s): 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 [facility] Wound Care Consult, Progress, and Procedure [...] 2 % gel Topical PRN Marielos Blair, LAPIDARIST - PSYCHOLOGIST PRIVATE PRACTICE REVIEW OF SYSTEMS Patient denies CP,SOB, tolerating [...] Assessment Granulation 11/27/24 0856 Linda-Wound Assessment Moist ;[place];Pale 11/27/24 0856 Wound Length (cm) 0.2 cm [...] provider verified the correct patient, procedure, equipment, manager client support, and site/side marked as required. Debridement Details Performed by: GINNER HELPER Debridement type: surgical Level of debridement: subcutaneous [...] by patient or POA. 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 [facility] Wound Care Consult, Progress, and Procedure [...] 2 % gel Topical PRN Marielos Blair, LAPIDARIST - PSYCHOLOGIST PRIVATE PRACTICE REVIEW OF SYSTEMS Patient denies CP,SOB, tolerating [...] Assessment Granulation 11/27/24 0856 Linda-Wound Assessment Moist ;[place];Pale 04/18/25 0856 Wound Length (cm) 0.2 cm 11/27/24 [...] provider verified the correct patient, procedure, equipment, manager client support, and site/side marked as required. Debridement Details Performed by: GINNER HELPER Debridement type: surgical Level of debridement: subcutaneous [...] by patient or POA. documented in this [facility]04-18-2025 Hospital Discharge instructions* Patient Instructions* Liss Acevedo RN - 11/27/2024 8:45 AM EDT Follow-up Appointments: Return Appointment in 2 weeks. Call [facility] at [phone], [facility] at [phone], or [facility] at [phone]. Edema/Swelling: Avoid standing for long periods of [...] diabetics Please call the wound center at [phone] if you are experiencing this. If we are closed and youare unable to reach us in person please go to the ER documented in this [facility]04-18-2025 Hospital Discharge instructions* Patient Instructions* Liss Acevedo RN - 11/27/2024 8:45 AM EDT Follow-up Appointments: Return Appointment in 2 weeks. Call [facility] at [phone], [facility] at [phone], or [facility] at [phone]. Edema/Swelling: Avoid standing for long periods of [...] diabetics Please call the wound center at [phone] if you are experiencing this. If we are closed and youare unable to reach us in person please go to the ER documented in this [facility]04-18-2025 Miscellaneous Notes* Addendum Note - Liss Acevedo RN - 11/27/2024 8:45 AM EDTEncounter addended by: Liss Acevedo RN on: 11/27/2024 9:54 AM Actions taken: Flowsheet accepted documented in this [facility]04-18-2025 Miscellaneous Notes* Addendum Note - Liss Acevedo RN - 11/27/2024 8:45 AM EDTEncounter addended by: Liss Acevedo RN on: 11/27/2024 9:54 AM Actions taken: Flowsheet accepted documented in this [facility]04-18-2025 Note* Addendum Note - Liss Acevedo RN - 11/27/2024 8:45 AM EDTEncounter addended by: Liss Acevedo RN on: 11/27/2024 9:54 AM Actions taken: Flowsheet accepted [place] [id number] Note* Addendum Note - Liss Acevedo RN - 11/27/2024 8:45 AM EDTEncounter addended by: Liss Acevedo RN on: 11/27/2024 9:54 AM Actions taken: Flowsheet accepted [place] [id number] Note* Addendum Note - Liss Acevedo RN - 11/27/2024 8:45 AM EDTEncounter addended by: iLss Acevedo RN on: 11/27/2024 9:54 AM Actions taken: Flowsheet accepted [place] [id number] Note* Addendum Note - Liss Acevedo RN - 11/27/2024 8:45 AM EDTEncounter addended by: Liss Acevedo RN on: 11/27/2024 9:54 AM Actions taken: Flowsheet accepted [place] [id number] Note* Addendum Note - Liss Acevedo RN - 11/27/2024 8:45 AM EDTEncounter addended by: Liss Acevedo RN on: 11/27/2024 9:54 AM Actions taken: Flowsheet accepted [place] [id number] History of Present illness Narrative* Nallely Alas [...] % gel, , Topical, PRN, Marielos Blair, LAPIDARIST - PSYCHOLOGIST PRIVATE PRACTICE Allergies: Allergies Allergen Reactions Tape Rash Social [...] Site Assessment Granulation 11/20/24 1253 Linda-Wound Assessment Pale;[place] 11/20/24 1253 Wound Length (cm) 0.3 cm [...] Site Assessment Granulation 11/20/24 1253 Linda-Wound Assessment Pale;[place] 11/20/24 1253 Wound Length (cm) 0.3 cm [...] Test Results/Process Orders 10 [] Staff telephones [facility], Nursing Homes/Clarify Orders 10 [] Routine [...] (160 or more Points) documented in this [facility]2025 Hospital Discharge instructions* Patient Instructions* Liss Acevedo RN - 11/20/2024 12:45 PM EDT Follow-up Appointments: Return Appointment in 2 weeks. Call [facility] at [phone], [facility] at [phone], or [facility] at [phone]. Edema/Swelling: Avoid standing for long periods of [...] diabetics Please call the wound center at [phone] if you are experiencing this. If we are closed and youare unable to reach us in person please go to the ER documented in this [facility]04-04-2025 History of Present illness Narrative* Nallely Alas DPM - 11/13/2024 1:15 PM EDT Images from the original note were not included. Wound Care Visit CHIEF COMPLAINT: Chief Complaint Patient presents with Wound Care Follow-up ulceration right foot. No new complaints. Patient relates she did go to [facility] for diabetic shoes and AFO HISTORY OF [...] Rfl: 0 ergocalciferol (Vitamin D2) 1.25 MG (90798 UT) capsule, Take 1 capsule (1.25 mg) [...] (Active) Wound Image 11/13/24 1359 Site Assessment Granulation;[place] 11/13/24 1359 Linda-Wound Assessment [place] 11/13/24 1359 Wound Length (cm) 0.4 cm 11/13/24 1359 Wound Width (cm) 0.5 cm 11/13/241358 Wound Surface Area (cm^2) 0.2 cm^2 11/13/24 135 Wound Depth (cm) 0.2 cm 11/13/241358 Wound Volume (cm^3) 0.04 cm^3 11/13/241358 Wound Healing % 80 11/13/241358 Drainage Description Serosanguineous 11/13/24 135 Odor None 11/13/241358 Drainage Amount Small 11/13/24 135 Treatments Cleansed 11/13/24 135 Primary Dressing Collagen;Xeroform 11/06/24 1254 Secondary Dressing [...] Diabetic Ulcer Foot Right (Active) Wound Image 11/13/241358 Site Assessment Granulation;[place] 11/13/241358 Linda-Wound Assessment Calloused 11/13/241358 Wound Length (cm) 0.4 cm 11/13/241358 Wound Width (cm) 0.5 cm 11/13/241358 Wound Surface Area (cm^2) 0.2 cm^2 11/13/241358 Wound Depth (cm) 0.2 cm 11/13/241358 Wound Volume (cm^3) 0.04 cm^3 11/13/24 135 Wound Healing % 80 11/13/241358 Drainage Description Serosanguineous 11/13/24 135 Odor None 11/13/24 135 Drainage Amount Small 11/13/24 135 Treatments Cleansed 11/13/24 135 Primary Dressing Collagen;Xeroform 11/06/24 1254 Secondary Dressing [...] DPM 11/13/2024 3:02 PM documented in this [facility]04-04-2025 Hospital Discharge instructions* Patient Instructions* Liss Acevedo RN - 11/13/2024 1:15 PM EDT Follow-up Appointments: Return Appointment in 1 week. Call [facility] at [phone], [facility] at [phone], or [facility] at [phone]. Edema/Swelling: Avoid standing for long periods of [...] diabetics Please call the wound center at [phone] if you are experiencing this. If we are closed and youare unable to reach us in person please go to the ER documented in this encounterSCleveland Clinic Akron GeneralTxmdlh12-38-6671 Telephone encounter Note* Telephone Encounter - Miesha Oswald - 11/12/2024 10:12 AM EDT Called and spoke to Hi. Pt is scheduled in May to see Priscila Laguerre. [facility] CenterTqhbwd86-28-5958 Miscellaneous Notes* Telephone Encounter - Miesha Oswald [...] insulin 1injection daily. Thanks! documented in this encounterSCleveland Clinic Akron GeneralAhxsjj55-51-7926 Telephone encounter Note* Telephone Encounter - Olga Santos MA - 11/12/2024 7:58 AM EDT Could you please assist? [facility] CenterTnjssv13-14-9377 Telephone encounter Note* Telephone Encounter - Yumiko Patel - 11/11/2024 4:23 PM EDT Patient's further questions if applicable: Hi states he is calling to get pt scheduled for a follow up appt with office for sooner then what's available. Please advise. [facility] CenterBqzfjv38-15-5428 Miscellaneous Notes* Telephone Encounter - Yumiko Patel [...] insulin 1injection daily. Thanks! documented in this [facility]03-28-2025 History of Present illness Narrative* Nallely Alas, DPM - 11/06/2024 12:45 PM EDT Images from the original note were not included. Wound Care Visit CHIEF COMPLAINT: Chief Complaint Patient presents with Wound Care Follow-up ulceration right foot. No new complaints. Patient has appointment at [facility] for diabetic shoes and custom AFO [...] Rfl: 0 ergocalciferol (Vitamin D2) 1.25 MG (58729 UT) capsule, Take 1 capsule (1.25 mg) [...] % gel, , Topical, PRN, Marielos Blair, LAPIDARIST - PSYCHOLOGIST PRIVATE PRACTICE Allergies: Allergies Allergen Reactions Tape Rash Social [...] (Active) Wound Image 11/06/24 1254 Site Assessment Granulation;[place];Pale 11/06/24 1254 Linda-Wound Assessment Call[place] 11/06/24 1254 [...] (Active) Wound Image 11/06/24 1254 Site Assessment Granulation;[place];Pale 11/06/24 1254 Linda-Wound Assessment [place] 11/06/24 1254 [...] Test Results/Process Orders 10 [] Staff telephones [facility], Nursing Homes/Clarify Orders 10 [] Routine [...] (160 or more Points) documented in this [facility]03-28-2025 Hospital Discharge instructions* Patient Instructions* Liss Acevedo RN - 11/06/2024 12:45 PM EDT Follow-up Appointments: Return Appointment in 1 week. Call [facility] at [phone], [facility] at [phone], or [facility] at [phone]. Edema/Swelling: Avoid standing for long periods of [...] diabetics Please call the wound center at [phone] if you are experiencing this. If we are closed and youare unable to reach us in person please go to the ER documented in this encounterSCleveland Clinic Akron GeneralRjlhlk67-20-5932 Telephone encounter Note* Telephone Encounter - Bella Duenas - 10/29/2024 4:13 PM EDT Name of caller: Hanna Contact phone number: [phone] or [phone] Relationship to Patient: patient Provider: Marcela Practice: [facility] Chief Complaint/Reason for Call: Pt called about phone call she missed and I informed her that she had an appt scheduled for 10.30.24 @ 3:00. Pt accepted this appt and will be there. Best time of day caller can be reached: any Patient advised that office/PCP has 24-48 business hours to return their call: Yes [facility] CenterHeexhb92-24-6509 Miscellaneous Notes* Telephone Encounter - Bella Duenas - 10/29/2024 4:13 PM EDT Name of caller: Hanna Contact phone number: [phone] or [phone] Relationship to Patient: patient Provider: Marcela Practice: [...] return their call: Yes documented in this [facility]03-07-2025 History of Present illness Narrative* Nallely Alas, BAILEYM - 10/16/2024 12:45 PM ESTAssociated Order(s): Debridement [...] shoes. [facility] HISTORY OF PRESENT ILLNESS: The patient is [...] Rfl: 0 ergocalciferol (Vitamin D2) 1.25 MG (35705 UT) capsule, Take 1 capsule (1.25 mg) [...] % gel, , Topical, PRN, Marielos Blair, LAPIDARIST - PSYCHOLOGIST PRIVATE PRACTICE Allergies: Allergies Allergen Reactions Tape Rash Social [...] (Active) Wound Image 10/16/24 1252 Site Assessment Granulation;[place]ale;[place] 10/16/24 1252 Linda-Wound Assessment Calloused;Macer[place] 10/16/24 1252 [...] (Active) Wound Image 10/16/24 1252 Site Assessment Granulation;[place]ale;[place] 10/16/24 1252 Linda-Wound Assessment Calloused;Macerated 10/16/24 1252 [...] DPM 10/16/2024 3:22 PM documented in this [facility]03-07-2025 Hospital Discharge instructions* Patient Instructions* Liss Acevedo RN - 10/16/2024 12:45 PM EST Follow-up Appointments: Return Appointment in 1 week. Call [facility] at [phone], [facility] at [phone], or [facility] at [phone]. Will write script for: Yanke AFO Right [...] diabetics Please call the wound center at [phone] if you are experiencing this. If we are closed and youare unable to reach us in person please go to the ER documented in this [facility]03-06-2025 History of Present illness Narrative* Kraig Wright MD - 10/15/2024 11:00 AM EST Images from the original note were not included. 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 The patient [...] is in a fog. Able to identify 9--1: no "I'd call 0" Reviewed progress notes completed by ÁNGEL SALGADO)and social work. Allergies Allergen Reactions Tape Rash [...] 1kit 0 ergocalciferol (Vitamin D2) 1.25 MG (08472 UT) capsule Take 1 capsule (1.25 mg) [...] (Uro-Jet) 2 % gel Topical PRN Marielos A. Blair, LAPIDARIST - PSYCHOLOGIST PRIVATE PRACTICE Past Medical History: Diagnosis Date Atrial fibrillation (HCC) Diabetes mellitus (HCC) Hyperlipidemia Hypertension Hypothyroidism Neuropathy Social History Tobacco Use Smoking status: Former Current packs/day: 0.00 Types: Cigarettes Quit date: 1965 Years since quittin.2 Smokeless tobacco: Never Substance [...] Neurological: Mental Status: She is alert. Coordination: Nsytwt-Ekma-Srvdsr Test normal. 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 Test scanned in [...] patient/family/caregiver, -Documenting clinical information in the patients [facility], -Coordination of care for the patient, [...] sleepdisturbance. The patient is not nervous/anxious. * Negra Chapman, TIMBER MANAGEMENT SPECIALIST - 10/15/2024 11:00 AM EST Senior Services/Geriatrics Social History Present at visit: amber Do, patient Marital status: Children: 2 sons, 1 daughter (1 daughter in [place], Hi in [place], Jose in [facility]) Living arrangement: lives alone in [facility], moved from [place] in May 2024. [facility] one level, basement (doesn't use - likely [...] Only amber Do uses Healthcare Power of Parimutuel Ticket Cashier: Yes: amber Do, then dtr Financial Power of Parimutuel Ticket Cashier: Yes: amber Do Living Will: Yes Guardian: [...] documents to healthcare providers and uploading into [employer] if available. Functional Status (I: Independent, A: [...] has cell phone, not as good at [employer] - never good at [employer]. Can make/answer calls. Can be confused with [...] working with family to set up online [employer] [place], sons are on bank account Educational materials [...] Diet Healthy Nutrition for Older Adults - [facility] Home Delivered Meals list Injury Prevention/Home Safety [facility] Home Safety Checklist [facility] Mobility for Adults Medications Medication Safety/Dispensers Sleep Getting a Good Night's Sleep ([facility]) Advanced Directives Conversation Project Workbook MEREDITH Todd 10/15/24 11:55 AM documented in this [facility]02-28-2025 History of Present illness Narrative* Nallely Alas DPM - 10/09/2024 12:45 PM EST Images [...] Rfl: 0 ergocalciferol (Vitamin D2) 1.25 MG (32265 UT) capsule, Take 1 capsule (1.25 mg) [...] % gel, , Topical, PRN, Marielos Blair, LAPIDARIST - PSYCHOLOGIST PRIVATE PRACTICE Allergies: Allergies Allergen Reactions Tape Rash Social [...] (Active) Wound Image 10/09/24 1235 Site Assessment Granulation;Pale;[place] 10/09/24 1235 Linda-Wound Assessment [place] 10/09/24 1235 [...] (Active) Wound Image 10/09/24 1235 Site Assessment Granulation;Pale;[place] 10/09/24 1235 Linda-Wound Assessment [place] 10/09/24 1235 [...] Test Results/Process Orders 10 [] Staff telephones [facility], Nursing Homes/Clarify Orders 10 [] Routine [...] (160 or more Points) documented in this [facility]02-28-2025 Hospital Discharge instructions* Patient Instructions* Liss Acevedo RN - 10/09/2024 12:45 PM EST Follow-up Appointments: Return Appointment in 1 week. Call [facility] at [phone], [facility] at [phone], or [facility] at [phone]. Will write script for: Yanke AFO Right [...] diabetics Please call the wound center at [phone] if you are experiencing this. 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 [facility] Wound Care Consult, Progress, and Procedure [...] very several years. She recently moved from [place] to here to be closer to daughter. She does not have a Animal Pathologist and daughter would like her to get [...] 1kit 0 ergocalciferol (Vitamin D2) 1.25 MG (67027 UT) capsule Take 1 capsule (1.25 mg) [...] provider verified the correct patient, procedure, equipment, manager client support, and site/side marked as required. Debridement Details Performed by: GINNER HELPER Debridement type: surgical Level of debridement: subcutaneous [...] evaluation of the patient: Answer: MARIELOS BLAIR [[id number]] [facility] Standing Status: Standing Number of Occurrences: 1 [...] Test Results/Process Orders 10 [x] Staff telephones [facility] [facility], Nursing Homes/Clarify Orders 10 [] Routine Transfer [...] (160 or more Points) documented in this [facility]02-[facility]-2025 History of Present illness Narrative* Marielos Blair APRN - PSYCHOLOGIST PRIVATE PRACTICE - 10/02/2024 9:15 AM ESTAssociated Order(s): Debridement Post-Procedure Diagnose(s): 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 [facility] Wound Care Consult, Progress, and Procedure [...] very several years. She recently moved from [place] to here to be closer to daughter. She does not have a Animal Pathologist and daughter would like her to get [...] 1kit 0 ergocalciferol (Vitamin D2) 1.25 MG (77667 UT) capsule Take 1 capsule (1.25 mg) [...] provider verified the correct patient, procedure, equipment, manager client support, and site/side marked as required. Debridement Details Performed by: GINNER HELPER Debridement type: surgical Level of debridement: subcutaneous [...] evaluation of the patient: Answer: MARIELOS BLAIR [[id number]] [facility] [place] Standing Status: Standing Number of Occurrences: 1 [...] Test Results/Process Orders 10 [x] Staff telephones TANKROOM TENDER, Nursing Homes/Clarify Orders 10 [] Routine Transfer [...] (160 or more Points) documented in this [facility]02-21-2025 Hospital Discharge instructions* Patient Instructions* Liss Acevedo RN - 10/02/2024 9:15 AM EST Follow-up Appointments: Return Appointment in 1 week. Call [place] wound center at [phone], [facility] at [phone], or [facility] at [phone]. Edema/Swelling: Avoid standing for long periods of [...] diabetics Please call the wound center at [phone] if you are experiencing this. If we are closed and youare unable to reach us in person please go to the ER documented in this [facility]02-21-2025 Hospital Discharge instructions* Patient Instructions* Liss Acevedo RN - 10/02/2024 9:15 AM EST Follow-up Appointments: Return Appointment in 1 week. Call [place] wound center at [phone], [facility] at [phone], or [facility] at [phone]. Edema/Swelling: Avoid standing for long periods of [...] diabetics Please call the wound center at [phone] if you are experiencing this. If we are closed and youare unable to reach us in person please go to the ER documented in this [facility]02-21-2025 Miscellaneous Notes* Addendum Note - Dayna Medley RN - 10/02/2024 9:15 AM ESTEncounter addended by: Dayna Medley RN on: 10/02/2024 2:26 PM Actions taken: Charge Capture section accepted documented in this [facility]02-21-2025 Miscellaneous Notes* Addendum Note - Dayna Medley RN - 10/02/2024 9:15 AM ESTEncounter addended by: Dayna Medley RN on: 10/02/2024 2:26 PM Actions taken: Charge Capture section accepted * Addendum Note - Liss Acevedo RN - 10/02/2024 9:15 AM ESTEncounter addended by: Liss Acevedo RN on: 10/07/2024 8:01 AM Actions taken: Clinical Note Signed, Order list changed, Diagnosis association updated documented in this encounterSumma [id number] Note* Addendum Note - Dayna Medley RN - 10/02/2024 9:15 AM ESTEncounter addended by: Dayna Medley RN on: 10/02/2024 2:26 PM Actions taken: Charge Capture section accepted [facility]02-21-2025 Note* Addendum Note - Dayna Medley RN - 10/02/2024 9:15 AM ESTEncounter addended by: Dayna Medley RN on: 10/02/2024 2:26 PM Actions taken: Charge Capture section accepted [facility]02-21-2025 Note* Addendum Note - Dayna Medley RN - 10/02/2024 9:15 AM ESTEncounter addended by: Dayna Medley RN on: 10/02/2024 2:26 PM Actions taken: Charge Capture section accepted [facility]02-21-2025 Note* Addendum Note - Dayna Medley RN - 10/02/2024 9:15 AM ESTEncounter addended by: Dayna Medley RN on: 10/02/2024 2:26 PM Actions taken: Charge Capture section accepted [address]21-2025 Note* Addendum Note - Dayna Medley RN - 10/02/2024 9:15 AM ESTEncounter addended by: Dayna Medley RN on: 10/02/2024 2:26 PM Actions taken: Charge Capture section accepted [address]21-2025 Note* Addendum Note - Liss Acevedo RN - 10/02/2024 9:15 AM Sreeer addended by: Liss Acevedo RN on: 10/07/2024 8:01 AM Actions taken: Clinical Note Signed, Order list changed, Diagnosis association updated [id number] Telephone encounter Note* Telephone Encounter - Priscila Mcclendon LPN - 09/29/2024 11:12 AM EST Spoke with pts son Hi. [facility] [place] [facility]. Will cancel future new patient appt with our practice. . [facility] [id number] Miscellaneous Notes* Telephone Encounter - Priscila Mcclendon LPN - 09/29/2024 11:12 AM EST Spoke with pts son Hi. She is being seen at [facility] [place] tomorrow. Will cancel future new patient appt with our practice. . * Telephone Encounter - Kraig Martinez - 09/25/2024 9:03 AM EST Pt has appt at [facility]. Called patient for clarification, pt advised to call her son. LVM for son asking to call back. * Telephone Encounter - Harinedr Temple - 09/23/2024 4:01 PM EST GINNER HELPER appt cancelled by TIMBER MANAGEMENT SPECIALIST, Will defer for 3 days and follow [...] 09/29/[address] Ojeda. documented in this encounterSCleveland Clinic Akron [id number] Telephone encounter Note* Telephone Encounter - Kraig Martinez - 09/25/2024 9:03 AM EST Pt has appt at [facility]. Called patient for clarification, pt advised to call her son. LVM for son asking to call back. [facility] [id number] Miscellaneous Notes* Telephone Encounter - Kraig Martinez - 09/25/2024 9:03 AM EST Pt has appt at [facility]. Called patient for clarification, pt advised to call her son. LVM for son asking to call back. * Telephone Encounter - Harinder Temple - 09/23/2024 4:01 PM EST GINNER HELPER appt cancelled by TIMBER MANAGEMENT SPECIALIST, Will defer for 3 days and follow [...] 09/29/[address] Ojeda. documented in this [facility]02-13-2025 Telephone encounter Note* Telephone Encounter - ALEJANDRINA Urias CNP - 09/24/2024 4:08 PM EST Edmond Allen, The family changed their mind and are agreeable to insulin for discharge. Can we continue Javier 3 plus? It is set up on her phone and doesn't require reader. Thanks! Ymagis Phone: [phone]) 885-712702-13-2025 Miscellaneous Notes* Telephone Encounter - ALEJANDRINA Urias [...] insulin 1injection daily. Thanks! documented in this [facility]02-13-2025 Plan of care note* Care Plan - [...] maintained or improved Outcome: Adequate for Discharge [facility] [id number] Miscellaneous Notes* Care Plan - Sawyer Peoples [...] - 09/24/2024 11:06 AM EST Asked by TCC to reach out to pts son, Hi, [...] coming in to help. Patient was a , did discuss possible aide and attendance assist [...] EST I received a secure chat from [facility] requesting I cancel appt with family practice. family is now going to follow with Dr. Medrano in [place] next week. Sent secure chat to [facility] scheduling requesting appt be cancelled. * Care Coordination - Chikis Carson RN - 09/23/2024 1:47 PM EST Received message from Dr. Medrano office that they are able to get patient in next week. Did updatethat will need [facility] set up once establishes with Dr. Medrano. [...] intake Outcome: Progressing * Care Coordination - MEREDTIH Gonzalez - 09/23/2024 10:36 AM EST I received a message from [facility] informing -patient has new patient appt with family practice on Nov 09. is there any way we can get it moved up as she is newly diagnosed with insulin dependent diabetes? Working with [facility] Scheduling: They were able to get new [facility] have patient arrive 15 [...] Meléndez RN - 09/21/2024 1:33 PM EST Rn Immunology following case for Discharge Needs. Spoke to patient and 2 sons at bedside in the room. Introduced myself and reason for visit. Explained home care services, requirements for home care. And answered questions. Pt does not currently have PCP. Pt recently moved to [facility] and hasn't established with new PCP as of yet. Pt states she has anappt. In October. Son's asking if appt could be moved up? I informed son's/pt, I would let the TCC know and she or SW would follow up with them. No other needs voiced. PACC signing off. documented in this [facility]02-13-2025 History of Present illness Narrative* Angelina Boyle OT - 09/24/2024 1:10 PM EST Images from the original note were not included. OCCUPATIONAL THERAPY [facility]'s Name/MRN: Hanna Nelson ([id number]) Date: 09/24/2024 Chart reviewed. Orders received. Primary [...] On: Kcal/kg Weight Used for Energy Requirements: [place] Weight for Energy Calculation (kg): 68 kg Total Energy Requirements (kcals/day): 5722-3095 (25-28) Weight Used for Protein Requirements: [place] Weight in Kg Used for Protein Requirements: [...] Current Body Weight: 90.7 kg (200 lb) [place] Body Weight (lbs) (Calculated): 150 lbs [place] Body Weight (Kg) (Calculated): 68 kg % [place] Body Weight (Calculated): 133.3 % BMI (kg/m2) [...] Skin, Weight Discharge Planning: Continue current diet Negra Perkins RD Contact: *[phone] or via Secure Chat * Herman Pepper DO - 09/23/2024 5:21 PM EST Hospitalist Progress Note 09/23/2024 [phone]: Please page me ([phone]) for patient care issues. [phone]: Please page [facility] Hospitalist for any issues. Subjective: Admit Date: 09/18/2024 PCP: No primary care provider on file. Room#: [facility] B Interval History: patient admitted for poorly [...] Hypertension Hypothyroidism Neuropathy LABS: CBC: Recent Labs 09/21/24 0058 09/22/24 0532 09/23/24 0245 WBC 7.8 7.0 6.7 RBC 3.80 3.97 3.88 HGB 11.7 12.2 11.7 HCT 36.5 38.1 37.3 MCV 96.1 96.0 96.1 RDW 13.3 13.7 13.6 PLT 222 225 229 BMP: Recent Labs 09/21/24 0058 09/22/24 0532 09/23/24 0245 NA 136 139 139 [...] care and follow up outpatient. Pseudohyponatremia NAGMA 2/ hyperglycemia Improved Afib on Eliquis HTN HLD [...] Hi Nelson Mobile Relation: Son Preferred language: Indonesian Clammer needed? No Herman Pepper DO Division of Hospitalist Medicine Inpatient Medical Services/[facility] PAGER: Epic chat * Priscila Laguerre, LAPIDARIST - PSYCHOLOGIST PRIVATE PRACTICE - 09/23/2024 2:33 PM EST Department of Internal Medicine Division of Endocrinology, Diabetes, & Metabolism Endocrinology Note Patient Name: Hanna Nelson : 1940 AGE: 84 y.o. Room/Bed: [facility] B Admission Date: 09/18/2024 Visit Date: 09/23/2024 Reason for Endocrine Consult: DM Ty2 uncontrolled hyperglycemia Provider/Team Requesting Consult: Dr. Montes PCP: No primary care provider on file. Outpt Relief Charge Nurse: No ASSESSMENT: Uncontrolled Hyperglycemia Hyperkalemia PLAN: Increase [...] alcohol pads for discharge. Outpt Follow Up-- [facility] Endocrinology SUBJECTIVE/HPI: CHIEF COMPLAINT: Chief Complaint Patient presents with Hyperglycemia Pt comes in today after being seen at [facility] yesterday for high sugar above 600 pt states she was able to get under 400 and was sent home yesterday but now pt states her sugar is high again and wont read on the monitor. Pt is alert and oriented but seems lethargic pts bgl is 535 Hanna is a 84 y.o. 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 Patient [...] found for: "CHOLHDLRATIO" No results found for: "VOAR69ULT" Lab Results Component Value Date TSH 3.34 09/21/2024 Radiology reportsas per the Radiologist Radiology: POCT glucose meter Result Date: 09/19/2024 Performed by: [facility], [address] [place] [address] CLIA ID: [id number] POCT glucose meter Result Date: 09/19/2024 Performed by: [facility], [address] [place], [place] [address] [place] [address] CLIA ID: [id number] POCT glucose meter Result Date: 09/19/2024 Performed by: [facility], [address] [place], [place] [address] [place] [address] CLIA ID: [id number] POCT glucose meter Result Date: 09/19/2024 Performed by: [facility], [address] [place], [place] [address] [place] [address] CLIA ID: [id number] POCT glucose meter Result Date: 09/19/2024 Performed by: [facility], [address] [place], [place] [address] [place] [address] CLIA ID: [id number] POCT glucose meter Result Date: 09/19/2024 Performed by: [facility], [address] [place], [place] [address] [place] [address] CLIA ID: [id number] POCT glucose meter Result Date: 09/18/2024 Performed by: [facility], [address] [place], [place] [address] [place] [address] CLIA ID: [id number] POCT glucose meter Result Date: 09/18/2024 Performed by: [facility], [address] [place], [place] [address] [place] [address] CLIA ID: [id number] POCT glucose meter Result Date: 09/18/2024 Performed by: [facility], [address] [place] [address] CLIA ID: [id number] POCT glucose meter Result Date: 09/18/2024 Performed by: [facility], [address] [place] [address] CLIA ID: [id number] POCT glucose meter Result Date: 09/18/2024 Performed by: [facility], [address] [place] [address] CLIA ID: [id number] POCT glucose meter Result Date: 09/18/2024 Performed by: [facility], [address] [place] [address] CLIA ID: [id number] History/Other: Past Medical History: Past Medical History: [...] Latif CNP - 09/23/2024 12:03 PM EST [facility] Geriatric Medicine Inpatient Consult Service Admission Date: [...] changes. --Recommend outpatient follow up at [facility] formore in depth cognitive [...] instructions. Discussed with case management and social services analyst. Possible SNF placement if qualifies versus home with private duty and [facility]. Addendum - family/patient refusing insulin. Endocrinology made oral med recommendations. Debility --contributing factors include acute illness, neuropathy, likely arthritis --uses walker at baseline --Recommend PT and OT --Family interested in [facility] and increased services --09/23 stable. Continue with [...] fibrillation, neuropathy, chronic food wound presented to [facility] on 09/18/24 with complaints of high blood [...] BID, Fish Montes MD, 5 mg at 09/23/24917 atenolol (Tenormin) tablet 50 mg, 50 mg, Oral, Daily, Fish Montes MD, 50 mg at 09/23/24917 atorvastatin (Lipitor) tablet 40 mg, 40 mg, Oral, Daily, Fish Montes MD, 40 mg at 09/23/24918 dextrose 5 % infusion, 100 mL/hr, IntraVENous, PRN, Fish Montes MD dextrose 50 % solution 12.5 g, 12.5 g, IntraVENous, PRN, Fish Montes MD fenofibrate (Triglide) tablet 160 mg, 160 mg, Oral, Daily, Fish Montes MD, 160 mg at 09/23/24917 gabapentin (Neurontin) capsule 300 mg, 300 mg, Oral, BID, Fish Montes MD, 300 mg at 09/23/24917 glucagon (human recombinant) injection 1 mg, 1 mg, IntraMUSCular, PRN, Fish Montes MD glucose oral gel 15 g, 15 g, Oral, PRN, Fish Montes MD insulin glargine (Lantus) injection 26 Units, 26 Units, SubCUTAneous, Nightly, ALEJANDRINA Urias CNP, 26 Units at 09/22/242039 insulin lispro (HumaLOG) pen injection 0-12 Units, 0-12 Units, SubCUTAneous, TID Priscila NOGUERA APRN - CNP, 4 Units at 09/23/24918 insulin lispro (HumaLOG) pen injection 16 Units, 16 Units, SubCUTAneous, TID Priscila NOGUERA APRN - CNP, 16 Units at 09/23/24918 levothyroxine (Synthroid, Levoxyl) tablet 112 mcg, 112 mcg, Oral, qAM AC, Fish oMntes MD, 112 mcg at 09/23/24533 lisinopril tablet 20 mg, 20 mg, Oral, [...] 3.34 09/21/2024 Lab Results Component Value Date [id number] 09/21/2024 Lab Results Component Value Date [...] per Lauren Castanon CNP. Will follow outpatient [place] wound clinic * Herman Pepper DO - 09/22/2024 2:39 PM EST Hospitalist Progress Note 09/22/2024 [phone]: Please page de ([phone]) for patient care issues. [phone]: Please page [facility] night Hospitalist for any issues. Subjective: Admit Date: 09/18/2024 PCP: No primary care provider on file. Room#: P8-240/Z1-907 B Interval History: patient admitted for poorly [...] Hypertension Hypothyroidism Neuropathy LABS: CBC: Recent Labs 09/20/2434709/21/248 09/22/24 0532 WBC 8.4 7.8 7.0 RBC 4.25 3.80 3.97 HGB 13.1 11.7 12.2 HCT 40.6 36.5 38.1 MCV 95.5 96.1 96.0 RDW 13.4 13.3 13.7 PLT 254 222 225 BMP: Recent Labs 09/20/2434709/21/245709/22/24 0532 NA 139 136 139 K 4.3 [...] Hi Nelson Mobile Relation: Son Preferred language: Indonesian Clammer needed? No Herman Pepper DO Division of Hospitalist Medicine Inpatient Medical Services/[facility] PAGER: Epic chat * Mariaa Simon, PT - 09/22/2024 12:06 PM EST Images from the original note were not included. PHYSICAL THERAPY [facility] Initial Evaluation Name/MRN: Hanna Nelson ([id number]) Evaluation Date: 09/22/2024 Date of : 1940 Admission Date: 09/18/2024 3:39 PM Age: 84 y.o. Room/Bed: [facility] [place] B Discharge Recommendation: Home with [...] to address current deficits. Recommend home with [facility] PT and PRN assist. Admitting Diagnosis: admitted [...] Responsibilities: Independent Receives Help From: None Active Transportation Modeler: N/A Prior Level of Function Prior Level [...] of Care supervision is transferred to a [facility] Therapy Services Physical Therapist. Goals and/or treatment plan was established in collaboration with patient/family/other representatives. * Priscila Laguerre APRN - PSYCHOLOGIST PRIVATE PRACTICE - 09/22/2024 7:59 AM EST Department of Internal Medicine Division of Endocrinology, Diabetes, & Metabolism Endocrinology Note Patient Name: Hanna Nelson : 1940 AGE: 84 y.o. Room/Bed: [facility] B Admission Date: 09/18/2024 Visit Date: 09/22/2024 Reason for Endocrine Consult: DM Ty2 uncontrolled hyperglycemia Provider/Team Requesting Consult: Dr. Montes PCP: No primary care provider on file. Outpt Relief Charge Nurse: No ASSESSMENT: Uncontrolled Hyperglycemia Hyperkalemia PLAN: Increase [...] alcohol pads for discharge. Outpt Follow Up-- [facility] Endocrinology SUBJECTIVE/HPI: CHIEF COMPLAINT: Chief Complaint Patient presents with Hyperglycemia Pt comes in today after being seen at [facility] yesterday for high sugar above 600 pt states she was able to get under 400 and was sent home yesterday but now pt states her sugar is high again and wont read on the monitor. Pt is alert and oriented but seems lethargic pts bgl is 535 Hanna is a 84 y.o. 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 Patient [...] to have javier for monitoring blood sugars. [employer] smart phone at bedside. - Will plan [...] found for: "CHOLHDLRATIO" No results found for: "YVCC23NNR" Lab Results Component Value Date TSH 3.34 09/21/2024 Radiology reportsas per the Radiologist Radiology: POCT glucose meter Result Date: 09/19/2024 Performed by: [facility], [address] [place] [address] CLIA ID: [id number] POCT glucose meter Result Date: 09/19/2024 Performed by: [facility], [address] [place] [address] CLIA ID: [id number] POCT glucose meter Result Date: 09/19/2024 Performed by: [facility], [address] [place] [address] CLIA ID: [id number] POCT glucose meter Result Date: 09/19/2024 Performed by: [facility], [address] [place] [address] CLIA ID: [id number] POCT glucose meter Result Date: 09/19/2024 Performed by: [facility], [address] [place] [address] CLIA ID: [id number] POCT glucose meter Result Date: 09/19/2024 Performed by: [facility], [address] [place] [address] CLIA ID: [id number] POCT glucose meter Result Date: 09/18/2024 Performed by: [facility], [address] [place] [address] CLIA ID: [id number] POCT glucose meter Result Date: 09/18/2024 [facility]formed by: [facility], [address] [place] [address] CLIA ID: [id number] POCT glucose meter Result Date: 09/18/2024 Performed by: [facility], [address] [place] [address] CLIA ID: [id number] POCT glucose meter Result Date: 09/18/2024 Performed by: [facility], [address] [place] [address] CLIA ID: [id number] POCT glucose meter Result Date: 09/18/2024 Performed by: [facility], [address] [place] [address] CLIA ID: [id number] POCT glucose meter Result Date: 09/18/2024 Performed by: [facility], [address] [place] [address] CLIA ID: [id number] History/Other: Past Medical History: Past Medical History: [...] 4:13 PM EST Hospitalist Progress Note 09/21/2024 [phone]: Please page me ([phone]) for patient care issues. [phone]: Please page [facility] night Hospitalist for any issues. Subjective: Admit Date: 09/18/2024 PCP: No primary care provider on file. Room#: B4-458/B4-458 B Interval History: Denies any abdominal pain nausea or vomitings No other significant overnight issues Adult diet Regular; 5 carb choices (75 gm/meal) @BXBJ6WSLRLV@ 24HR INTAKE/OUTPUT: No intake or output data [...] 20 mg, Oral, BID AC Assessment Uncontrolled pyj-oqtpiic-pwzwjscgk diabetes mellitus with hyperglycemia. Hyperkalemia. Acute on chronic kidney disease. Non-anion gap metabolic acidosis Mild pseudohyponatremia secondary to hyperglycemia. Elevated blood pressure. History of: Renal fibrillation on Eliquis. Hypertension Hyperlipidemia. Leg-imgspqo-gtnivdjla diabetes mellitus Hypothyroidism. Neuropathy. Plan: Lantus to 20 units nightly, lispro 8 units 3 times daily continue medium dose sliding scale. Blood sugars are improving. Hemoglobin A1c is 12.1 Endocrinology consult pending. Discussed with ID stewardship-discontinued antibiotics Geriatrics ilhhkrace-yojxbl-ez on the recommendations Follow-up CBC BMP ordered. [...] MD Division of Hospitalist Medicine Inpatient Medical Services/[facility] PAGER: [phone] * Fish Montes MD - 09/20/2024 4:08 PM EST Hospitalist Progress Note 09/20/2024 [phone]: Please page me ([phone]) for patient care issues. [phone]: Please page [facility] night Hospitalist for any issues. Subjective: Admit Date: 09/18/2024 PCP: No primary care provider on file. Room#: [facility] B Interval History: Denies any abdominal pain nausea or vomitings No other significant overnight issues Adult diet Regular; 5 carb choices (75 gm/meal) @RCEH8BSBWCR@ 24HR INTAKE/OUTPUT: Intake/Output Summary (Last 24 hours) [...] 20 mg, Oral, BID AC Assessment Uncontrolled xnj-eparuev-fsfutaxvd diabetes mellitus with hyperglycemia. Hyperkalemia. Acute on chronic kidney disease. Non-anion gap metabolic acidosis Mild pseudohyponatremia secondary to hyperglycemia. Elevated blood pressure. History of: Renal fibrillation on Eliquis. Hypertension Hyperlipidemia. Bsb-tmwrcpj-itcumgbkc diabetes mellitus Hypothyroidism. Neuropathy. Plan: Lantus to [...] MD Division of Hospitalist Medicine Inpatient Medical Services/[facility] PAGER: [phone] * Chikis Denise RD - 09/19/2024 4:22 PM EST Nutrition- K= 4 - RD discontinued K+ restriction.. RD to follow * Chikis Denise RD - 09/19/2024 1:01 PM EST Nutrition Assessment Type and Reason for Visit: Initial, Positive Nutrition Screen (admitted with [facility] dm - high K) Nutrition Recommendations/Plan: [...] risk for malnutrition (Comment) (age, uti , [facility] dm) Context: Acute Illness Findings of the 6 clinical characteristics of malnutrition: Energy Intake: Mild decrease in energy intake (Comment) Weight Loss: Unable to assess Body Fat Loss: No significant body fat loss Muscle Mass Loss: No significant muscle mass loss Fluid Accumulation: Mild Extremities [employer] Strength: Normal catcher plug strength Nutrition Assessment: per MD-Reason for Admission: Uncontrolled hyperglycemia. Hyperkalemia. Suspecting urinary tract infection History Obtained From: patient HISTORY OF PRESENT ILLNESS: Hanna is a 84 y.o. female with significant past medical history of ftv-bkkdnbg-edgrkrxas diabetes mellitus, hypertension, hyperlipide leah, hypothyroidism, atrial [...] patient for further management. per md-IMPRESSION: Uncontrolled vjf-obhggmp-syxsbeztc diabetes mellitus with hyperglycemia. Hyperkalemia. Acute on chronic kidney disease. Non-anion gap metabolic acidosis with Mild pseudohyponatremia secondary to hyperglycemia. Elevated blood pressure. Estimated Daily Nutrient Needs: Energy Requirements Based On: Kcal/kg Weight Used for Energy Requirements: [place] Weight for Energy Calculation (kg): 68 kg Total Energy Requirements (kcals/day): 25-28 or 1700-1 904 Weight Used for Protein Requirements: [place] Weight in Kg Used for Protein Requirements: 68 kg Estimated Total Protein (g/day): 1-1.2 or 68-82 Estimated Daily Total Fluid (ml/day): 1.7-1.9 liters Nutrition Related Findings: strong catcher plug, HBAIC pending, +2 ble, kait 20, k [...] Current Body Weight: 90.7 kg (200 lb) [place] Body Weight (lbs) (Calculated): 150 lbs [place] Body Weight (Kg) (Calculated): 68 kg % [place] Body Weight (Calculated): 133.3 % BMI (kg/m2) [...] Continue current diet Chikis Denise RD Contact: *[phone] or secure chat * Fish Montes MD - 09/19/2024 11:03 AM EST Hospitalist Progress Note 09/19/[id number]: Please page me ([phone]) for patient care issues. [phone]: Please page IMS night Hospitalist for any issues. Subjective: Admit Date: 09/18/2024 PCP: No primary care provider on file. [facility] Inter[facility] History: Patient is sitting on the bed, denies any abdominal pain nausea or vomitings No other significant overnight issues. Adult diet Regular; Low Potassium (Less than 3000 mg/day); 5 carb choices (75 gm/meal) @[id number]@ 24HR INTAKE/OUTPUT: Intake/Output Summary (Last 24 hours) [...] 20 mg, Oral, BID AC Assessment Uncontrolled xue-kwbrjvg-fusdmxsvt diabetes mellitus with hyperglycemia. Hyperkalemia. Acute on chronic kidney disease. Non-anion gap metabolic acidosis with Mild pseudohyponatremia secondary to hyperglycemia. Elevated blood pressure. History of: Renal fibrillation on Eliquis. Hypertension Hyperlipidemia. Zvg-naxbbui-xmfpjnaxi diabetes mellitus Hypothyroidism. Neuropathy. Plan: Blood sugars [...] MD Division of Hospitalist Medicine Inpatient Medical Services/[facility] PAGER: [phone] documented in this [facility]02-13-2025 [facility] 09-24-2024 Hospital course Narrative* Herman [...] home. LABS: CBC: Recent Labs 09/22/24 0532 09/23/24 0245 09/24/24 0246 WBC 7.0 6.7 6.7 RBC 3.97 3.88 3.80 HGB 12.2 11.7 11.7 HCT 38.1 37.3 36.8 MCV 96.0 96.1 96.8 RDW 13.7 13.6 13.5 PLT 225 229 215 BMP: Recent Labs 09/22/24 0532 09/23/24 0245 09/24/24 0246 NA 139 139 139 K 4.3 4.3 [...] Check glucose 3x daily ergocalciferol 1.25 MG (31001 UT) capsule Commonly known as: Vitamin D2 [...] Your Medications These medications were sent to [facility] [address] [facility] [address] [facility] [address] Alcohol Prep 70 % pads Blood Glucose Monitor System w/Device kit Lancets Tradjenta 5 MG tablet These medications were sent to [facility] [address] [place] [id number] Hours: Saturday to Saturday 10 am to 6 pm ergocalciferol 1.25 MG (21307 UT) capsule insulin degludec 100 UNIT/ML injection metFORMIN 500 MG tablet Recommended Follow-up: PCP and endocrinology and podiatry outpatient in 1-2 weeks. @READMISSIONRISK@ Complexity of Follow up: [] Moderate Complexity: follow up within 7-14 calendar days (04264) [x] Severe Complexity: follow up within 7 calendar days (05896) Follow up Testing, Pending results or Referrals [...] frame. Signed: Herman Pepper DO [facility] 09/24/2024, 12:37 PM Total time Spent on [...] condition to home. LABS: CBC: Recent Labs 09/21/24 0058 09/22/24 0532 09/23/24 0245 WBC 7.8 7.0 6.7 RBC 3.80 3.97 3.88 HGB 11.7 12.2 11.7 HCT 36.5 38.1 37.3 MCV 96.1 96.0 96.1 RDW 13.3 13.7 13.6 PLT 222 225 229 BMP: Recent Labs 09/21/24 0058 09/22/24 0532 09/23/24 0245 NA 136 139 139 [...] Your Medications These medications were sent to [facility] [address] [place] [id number] Hours: Saturday to Saturday 10 am to 6 pm Alcohol Prep 70 % pads Blood Glucose Monitor System w/Device kit glimepiride 4 MG tablet Lancets metFORMIN 500 MG tablet Tradjenta 5 MG tablet Recommended Follow-up: PCP and endocrinology and podiatry outpatient in 1-2 weeks. @READMISSIONRISK@ Complexity of Follow up: [] Moderate Complexity: follow up within 7-14 calendar days (80081) [x] Severe Complexity: follow up within 7 calendar days (64507) Follow up Testing, Pending results or Referrals [...] frame. Signed: Herman Pepper DO [facility] Medical Services/[facility] 09/23/2024, 3:12 PM Total time Spent on Discharge: 32 minutes documented in this [facility]02-13-2025 Note* Care Coordination - MEREDITH Gonzalez - 09/24/2024 11:06 AM EST Asked by [facility] to reach out to pts son, Hi, to discuss any decision that may have been made yesterday about their choice for care after pt dc's. I called Hi and left a vm requesting a return call to discuss above. [facility] [id number] Note* Care Coordination - MEREDITH Gonzalez - 09/24/2024 11:06 AM EST Asked by [facility] to reach out to pts sonHi, to discuss any decision that may have been made yesterday about their choice for care after pt dc's. I called Hi and left a vm requesting a return call to discuss above. [facility] [id number] NoteProblem: Problem Interventions Goal: Assess Nutritional Intake Outcome: Progressing Goal: Promote nutritional intake [facility] Plan of care note* Care Plan - Sawyer Peoples RN - 09/24/2024 10:20 AM EST Problem: Problem Interventions Goal: Assess Nutritional Intake Outcome: Progressing Goal: Promote nutritional intake Outcome: Progressing [facility] [id number] Plan of care note* Care Plan - [...] or improved Outcome: Progressing Flowsheets (Taken 09/24/2024 0147) Care Plan - Patient's Chronic Conditions and Co-Morbidity Symptoms are Monitored and Maintained or Improved: Monitor and assess patient's chronic conditions and comorbid symptoms for stability, deterioration, or improvement [facility] [id number] Telephone encounter Note* Telephone Encounter - ALEJANDRINA Urias CNP - 09/23/2024 4:03 PM EST Edmond Allen, This patient refused insulin for home going. She won't qualify for Javier sensors. Can you cancel this request? Thanks! [facility] [id number] Telephone encounter Note* Telephone Encounter - Harinder Temple - 09/23/2024 4:01 PM EST GINNER HELPER appt cancelled by MEREDITH, Will defer for 3 days and follow up [facility] [id number] [facility]02-12-2025 Note* Care Coordination - MEREDITH [...] coming in to help. Patient was a , did discuss possible aide and attendance assist [...] TCC number as well as my number. [facility] [id number] Note* Care Coordination - MEREDITH Jhaveri - [...] coming in to help. Patient was a , did discuss possible aide and attendance assist [...] SNFs with his Sister. I did update [facility] of this and did provide [facility] number as well as my number. [facility] CenterVhshyk27-36-7764 Note* Care Coordination - MEREDITH Gonzalez - 09/23/2024 1:54 PM EST I received a secure chat from [facility] requesting I cancel appt with family practice. family is now going to follow with Dr. Medrano in [place] next week. Sent secure chat to [facility] scheduling requesting appt be cancelled. [place] [id number] Note* Care Coordination - MEREDITH Gonzalez - 09/23/2024 1:54 PM EST I received a secure chat from [facility] requesting I cancel appt with family practice. family is now going to follow with Dr. Medrano in [place] next week. Sent secure chat to [facility] scheduling requesting appt be cancelled. [facility]02-12-2025 Note* Care Coordination - Chikis Carson RN - 09/23/2024 1:47 PM EST Received message from Dr. Medrano office that they are able to get patient in next week. Did updatethat will need c set up once establishes with Dr. Medrano. Did update central scheduling to please cancel appt with family practice as family would like to follow with Dr. Medrano upon discharge. .E lectronically signed by Chikis Carson RN on 09/23/2024 at 1:49 PM [facility]02-12-2025 Note* Care Coordination - Chikis Carson RN - 09/23/2024 1:47 PM EST Received message from Dr. Medrano office that they are able to get patient in next week. Did updatethat will need c set up once establishes with Dr. Medrano. Did update central scheduling to please cancel appt with family practice as family would like to follow with Dr. Medrano upon discharge. .E lectronically signed by Chikis Carson RN on 09/23/2024 at 1:49 PM [facility]02-12-2025 NoteProblem: Problem Interventions Goal: Assess Nutritional Intake Outcome: Progressing Goal: Promote nutritional intake [facility]: [facility] Plan of care note* Care Plan - Sawyer Peoples RN - 09/23/2024 11:03 AM EST Problem: Problem Interventions Goal: Assess Nutritional Intake Outcome: Progressing Goal: Promote nutritional intake Outcome: Progressing [facility] [id number] Note* Care Coordination - MEREDITH Gonzalez - [...] [facility] have patient arrive 15 mins early with ID, insurance card and list of current medications. TCC informed and appt place in pts AVS/ [facility] [id number] Note* Care Coordination - MEREDITH Gonzalez - 09/23/2024 10:36 AM EST I received a message from MARIA C informing -patient has new patient appt with family practice on Nov 09. is there any way we can get it moved up as she is newly diagnosed with insulin dependent diabetes? Working with [facility] Scheduling: They were able to get new patient scheduled [facility]29 [facility] have patient arrive 15 mins early with ID, insurance card and list of current medications. TCC informed and appt place in pts AVS/ [facility] [id number] Telephone encounter Note* Telephone Encounter - Radha [...] patient appointment schedule 09/29/[address] Ojeda. [facility]02-12-2025 Plan of care note* Care Plan - Celine Claudio RN - 09/23/2024 1:59 AM EST Problem: Pain - Adult Goal: Verbalizes/displays adequate comfort level or baseline comfort level Outcome: Progressing Flowsheets (Taken 09/23/2024 015) Verbalizes/displays adequate comfort level or baseline comfort level: Encourage patient to monitor pain and request assistance Assess pain using appropriate pain scale Administer analgesics based on type and severity of pain and evaluate response Notify Licensed Independent Practitioner if interventions unsuccessful or patient reports new pain Problem: Safety - Adult Goal: Free from fall injury Outcome: Progressing Flowsheets (Taken 09/23/2024 015) Free from fall injury: Instruct family/caregiver on patient safety Problem: Chronic Conditions and Co-morbidities Goal: Patient's chronic conditions and co-morbidity symptoms are monitored and maintained or improved Outcome: Progressing Flowsheets (Taken 09/23/2024157) Care Plan - Patient's Chronic Conditions and Co-Morbidity Symptoms are Monitored and Maintained or Improved: Monitor and assess patient's chronic conditions and comorbid symptoms for stability, deterioration, or improvement [facility] [id number] NotePts family is requesting extra resources to help pt at home. Pt struggling with insulin education this RN expressed concern that pt will not be able to dose herself properly at home. Dr. Pepper Notified. [facility] Nurse Note* Estiven Kay RN - 09/22/2024 6:30 PM EST Pts family is requesting extra resources to help pt at home. Pt struggling with insulin education this RN expressed concern that pt will not be able to dose herself properly at home. Dr. Pepper Notified. Case management notified. [facility] [id number] Nurse Note* Estiven Kay RN - 09/22/2024 6:30 PM EST Pts family is requesting extra resources to help pt at home. Pt struggling with insulin education this RN expressed concern that pt will not be able to dose herself properly at home. Dr. Pepper Notified. Case management notified. documented in this [facility]02-11-2025 Consult note* Nallely Alas DPM - 09/22/2024 [...] over 1 year. She is from the [facility] and has been going to wound center [...] Fish Montes MD, 5 mg at 09/22/24 0907 apixaban (Eliquis) tablet 5 mg, 5 mg, Oral, BID, Fish Montes MD, 5 mg at 09/22/24906 atenolol (Tenormin) tablet 50 mg, 50 mg, Oral, Daily, Fish Montes MD, 50 mg at 09/22/24906 atorvastatin (Lipitor) tablet 40 mg, 40 mg, Oral, Daily, Fish Montes MD, 40 mg at 09/22/24906 dextrose 5 % infusion, 100 mL/hr, IntraVENous, PRN, Fish Montes MD dextrose 50 % solution 12.5 g, 12.5 g, IntraVENous, PRN, Fish Montes MD fenofibrate (Triglide) tablet 160 mg, 160 mg, Oral, Daily, Fish Montes MD, 160 mg at 09/22/24906 gabapentin (Neurontin) capsule 300 mg, 300 mg, Oral, BID, Fish Montes MD, 300 mg at 09/22/24906 glucagon (human recombinant) injection 1 mg, 1 mg, IntraMUSCular, PRN, Fish Montes MD glucose oral gel 15 g, 15 g, Oral, PRN, Fish Montes MD insulin glargine (Lantus) injection 24 Units, 24 Units, SubCUTAneous, Nightly, ALEJANDRINA Urias CNP, 24 Units at 09/21/24 215 insulin lispro (HumaLOG) pen injection 0-12 Units, 0-12 Units, SubCUTAneous, TID Priscila NOGUERA APRN - CNP, 6 Units at 09/22/24 09 insulin lispro (HumaLOG) pen injection 10 Units, 10 Units, SubCUTAneous, TID Priscila NOGUERA APRN - CNP, 10 Units at 09/22/24 09 levothyroxine (Synthroid, Levoxyl) tablet 112 mcg, 112 mcg, Oral, qAM AC, Fish Montes MD, 112 mcg at 09/22/24 06 lisinopril tablet 20 mg, 20 mg, Oral, Daily, Fish Montes MD, 20 mg at 09/22/24 09 melatonin tablet 3 mg, 3 mg, Oral, Nightly PRN, Day Cardenas APRN - PSYCHOLOGIST PRIVATE PRACTICE ondansetron ODT (Zofran-ODT) disintegrating tablet 4 mg, [...] current treatment recommend follow-up as an outpatient [place] wound clinic or patient relates she has an appointment. Thank you for the opportunity participate in the care of your patient. Nallely Alas DPM 09/22/2024 10:25 AM [facility]02-11-2025 Consult note* Nallely Alas DPM - 09/22/2024 [...] over 1 year. She is from the [facility] and has been going to wound center [...] Fish Montes MD, 5 mg at 09/22/24 0907 apixaban (Eliquis) tablet 5 mg, 5 mg, [...] Fish Montes MD, 160 mg at 09/22/24 09 gabapentin (Neurontin) capsule 300 mg, 300 mg, Oral, BID, Fish Montes MD, 300 mg at 09/22/24 09 glucagon (human recombinant) injection 1 mg, 1 mg, IntraMUSCular, PRN, Fish Montes MD glucose oral gel 15 g, 15 g, Oral, PRN, Fish Montes MD insulin glargine (Lantus) injection 24 Units, 24 Units, SubCUTAneous, Nightly, ALEJANDRINA Urias CNP, 24 Units at 09/21/24 2155 insulin lispro (HumaLOG) pen injection 0-12 Units, 0-12 Units, SubCUTAneous, TID WC, ALEJANDRINA Urias CNP, 6 Units at 09/22/24 09 insulin lispro (HumaLOG) pen injection 10 Units, 10 Units, SubCUTAneous, TID WC, Priscila Laguerre, LAPIDARIST - PSYCHOLOGIST PRIVATE PRACTICE, 10 Units at 09/22/24 0907 levothyroxine (Synthroid, Levoxyl) tablet 112 mcg, 112 mcg, Oral, qAM AC, Fish Montes MD, 112 mcg at 09/22/24 0603 lisinopril tablet 20 mg, 20 mg, Oral, Daily, Fish Montes MD, 20 mg at 09/22/24 0907 melatonin tablet 3 mg, 3 mg, Oral, Nightly PRN, Day Cardenas, LAPIDARIST - PSYCHOLOGIST PRIVATE PRACTICE ondansetron ODT (Zofran-ODT) disintegrating tablet 4 mg, [...] current treatment recommend follow-up as an outpatient [place] wound clinic or patient relates she has an appointment. Thank you for the opportunity participate in the care of your patient. Nallely Alas DPM 09/22/2024 10:25 AM * Day Cardenas APRN - KYREE - 09/21/2024 11:36 AM ESTAssociated Order(s): IP CONSULT TO GERIATRICS Images from the original note were not included. [facility] Geriatric Medicine Inpatient Consult Service Admission [...] changes. --Recommend outpatient follow up at [facility] formore in depth cognitive [...] PT and OT evaluation --Family interested in [facility] and increased services --check Vit D Neuropathy [...] HS --Monitor for constipation/urinary retention - last 09/19 --Possible medication contributions: none I spent [...] fibrillation, neuropathy, chronic food wound presented to [facility] on 09/18/24 with complaints of high blood sugar. She was just seenin ER 09/18 with hyperglycemia. PO meds adjusted and sent home. Patient had refused admission. Admitted this time with uncontrolled DM with hyperglycemia, hyperkalemia, ?UTI. Endocrinology consulted. She is new to area and did not have PCP yet. Nursing Delirium Screen (Nu-Desc): Nursing Delirium Symptom Checklist Total Score: 0 Conversation with patient: Patient states she feels well. States she has had some confusion due to high blood sugars and infection. States she was independent at home. Recently moved from [place]. She lived there for 50 years. She [...] home. [facility] Healthcare Power of Parimutuel Ticket Cashier: Yes, Hi Nelson Financial Power of Parimutuel Ticket Cashier: Yes, Hi Nelson Code Status: Full Code [...] Fish Montes MD, 50 mg at 09/21/24 0858 atorvastatin (Lipitor) tablet 40 mg, 40 mg, Oral, Daily, Fish Montes MD, 40 mg at 09/21/24 0858 dextrose 5 % infusion, 100 mL/hr, IntraVENous, PRN, Fish Montes MD dextrose 50 % solution 12.5 g, 12.5 g, IntraVENous, PRN, Fish Montes MD fenofibrate (Triglide) tablet 160 mg, 160 mg, Oral, Daily, Fish Montes MD, 160 mg at 09/21/24 0858 gabapentin (Neurontin) capsule 300 mg, 300 mg, Oral, BID, Fish Montes MD, 300 mg at 09/21/24 0858 glucagon (human recombinant) injection 1 mg, 1 mg, IntraMUSCular, PRN, Fish Montes MD glucose oral gel 15 g, 15 g, Oral, PRN, Fish Montes MD insulin glargine (Lantus) injection 24 Units, 24 Units, SubCUTAneous, Nightly, ALEJANDRINA Urias CNP Insulin Lispro (Humalog) injection 0-12 Units, 0-12 Units, SubCUTAneous, TID WC, 6 Units at 09/21/24 1159 AND [DISCONTINUED] Insulin Lispro (Humalog) injection 0-12 Units, 0-12 Units, SubCUTAneous, Nightly, Fish Montes MD, 4 Units at 09/19/24 2137 Insulin Lispro (Humalog) injection 10 Units, 10 Units, SubCUTAneous, TID WC, ALEJANDRINA Urias CNP, 10 Units at 09/21/24 1159 levothyroxine (Synthroid, [...] 09/14 Namin/2 Repetition: 08/12 Three staged command: 23 Readin/1 Writin/1 Copyin/1 Clock Drawing Test: Correct Elements (1 pt each): Numbers 1-12 only included and Numbers are drawn inside the clock [place] Total Score 2/7 Time Instructions: Ten past eleven Scores < 5 out of 7 correlate with significantly more driving errors J Gen Salt Operator Med 2005; 20:240-244 Labs and Imaging: Recent [...] from the original note were not included. [facility] Wound Care CONSULT Note Hanna Nelson [...] respiratory distress, no cyanosis Left 2nd toe: [id number] cm. Wound bed with stained callus noted. [...] to follow Recommend to follow up at [facility] Outpatient wound care center after hospital discharge. Any questions or concerns please secure chat "[facility] wound/ostomy". Thank you for the consult! I [...] Nelson : 1940 AGE: 84 y.o. Room[facility]: [facility] Admission Date: 09/18/2024 Visit Date: 09/21/2024 Reason for Endocrine Consult: DM Ty2 uncontrolled hyperglycemia Provider/Team Requesting Consult: Dr. Montes PCP: No primary care provider on file. Outpt Relief Charge Nurse: No ASSESSMENT: Uncontrolled Hyperglycemia Hyperkalemia PLAN: Increase [...] alcohol pads for discharge. Outpt Follow Up-- [facility] Endocrinology SUBJECTIVE/HPI: CHIEF COMPLAINT: Chief Complaint Patient presents with Hyperglycemia Pt comes in today after being seen at [facility] yesterday for high sugar above 600 pt states she was able to get under 400 and was sent home yesterday but now pt states her sugar is high again and wont read on the monitor. Pt is alert and oriented but seems lethargic pts bgl is 535 aHnna is a 84 y.o. 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 Patient [...] to have javier for monitoring blood sugars. [employer] smart phone at bedside. - Will plan [...] found for: "CHOLHDLRATIO" No results found for: "SRZI22ABZ" No results found for: "TSH", "I8VHUUL", "D9MLXUA", "THYROIDAB" Radiology reportsas per the Radiologist Radiology: POCT glucose meter Result Date: 09/19/2024 Performed by: [facility], [address] [place] [address] CLIA ID: [id number] POCT glucose meter Result Date: 09/19/2024 Performed by: [facility], [address] [place], [place] [address] [place] [address] CLIA ID: [id number] POCT glucose meter Result Date: 09/19/2024 Performed by: [facility], [address] [place], [place] [address] [place] [address] CLIA ID: [id number] POCT glucose meter Result Date: 09/19/2024 Performed by: [facility], [address] [place], [place] [address] [place] [address] CLIA ID: [id number] POCT glucose meter Result Date: 09/19/2024 Performed by: [facility], [address] [place], [place] [address] [place] [address] CLIA ID: [id number] POCT glucose meter Result Date: 09/19/2024 Performed by: [facility], [address] [place], [place] [address] [place] [address] CLIA ID: [id number] POCT glucose meter Result Date: 09/18/2024 Performed by: [facility], [address] [place], [place] [address] [place] [address] CLIA ID: [id number] POCT glucose meter Result Date: 09/18/2024 Performed by: [facility], [address] [place], [place] [address] [place] [address] CLIA ID: [id number] POCT glucose meter Result Date: 09/18/2024 Performed by: [facility], [address] [place] [address] CLIA ID: [id number] POCT glucose meter Result Date: 09/18/2024 [facility]formed by: [facility], [address] [place] [address] CLIA ID: [id number] POCT glucose meter Result Date: 09/18/2024 Performed by: [facility], [address] [place] [address] CLIA ID: [id number] POCT glucose meter Result Date: 09/18/2024 Performed by: [facility], [address] [place] [address] CLIA ID: [id number] History/Other: Past Medical History: Past Medical History: [...] 09/22/2024 1:10 PM EST documented in this [facility]02-11-2025 Plan of care note* Care Plan - Marietta Dailey RN - 09/22/2024 4:59 AM EST Problem: Problem Interventions Goal: Assess Nutritional Intake 09/22/2024 0459 by Marietta Dailey RN Outcome: Progressing 09/22/2024 0349 by Marietta Dailey RN Outcome: Progressing Goal: Promote nutritional intake 09/22/2024 0459 by Marietta Dailey RN Outcome: Progressing 09/22/2024 0349 by Marietta Dailey RN Outcome: Progressing [facility] CenterGjqqsi54-80-9385 NoteProblem: Problem Interventions Goal: Assess Nutritional Intake Outcome: Progressing Goal: Promote nutritional intake [facility] Plan of care note* Care Plan - Marietta Dailey RN - 09/22/2024 3:49 AM EST Problem: Problem Interventions Goal: Assess Nutritional Intake Outcome: Progressing Goal: Promote nutritional intake Outcome: Progressing [facility] CenterWlqlzw99-68-2601 Telephone encounter Note* Telephone Encounter - ALEJANDRINA Urias CNP - 09/21/2024 5:59 PM EST Can we see if patient would qualify for Javier 3 Plus. Patient is on Medicare and starting insulin 1injection daily. Thanks! [facility] CenterXnrguf76-09-5420 Note* Home Care - Bella Meléndez RN - 09/21/2024 1:33 PM EST Rn Immunology following case for Discharge Needs. Spoke to patient and 2 sons at bedside in the room. Introduced myself and reason for visit. Explained home care services, requirements for home care. And answered questions. Pt does not currently have PCP. Pt recently moved to [facility] and hasn't established with new PCP as of yet. Pt states she has anappt. In October. Son's asking if appt could be moved up? I informed son's/pt, I would let the TCC know and she or SW would follow up with them. No other needs voiced. PACC signing off. [facility] CenterBlzzlz03-33-4006 Note* Home Care - Bella Meléndez RN - 09/21/2024 1:33 PM EST Rn Immunology following case for Discharge Needs. Spoke to patient and 2 sons at bedside in the room. Introduced myself and reason for visit. Explained home care services, requirements for home care. And answered questions. Pt does not currently have PCP. Pt recently moved to [facility] and hasn't established with new PCP as of yet. Pt states she has anappt. In October. Son's asking if appt could be moved up? I informed son's/pt, I would let the TCC know and she or SW would follow up with them. No other needs voiced. PACC signing off. [facility] CenterFjpzkd95-12-4451 Consult note* Day aCrdenas APRN - PSYCHOLOGIST PRIVATE PRACTICE - 09/21/2024 11:36 AM ESTAssociated Order(s): IP CONSULT TO GERIATRICS Images from the original note were not included. [facility] Geriatric Medicine Inpatient Consult Service Admission [...] changes. --Recommend outpatient follow up at [facility] formore in depth cognitive [...] PT and OT evaluation --Family interested in [facility] and increased services --check Vit D Neuropathy [...] fibrillation, neuropathy, chronic food wound presented to [facility] on 09/18/24 with complaints of high blood sugar. She was just seenin ER 09/18 with hyperglycemia. PO meds adjusted and sent home. Patient had refused admission. Admitted this time with uncontrolled DM with hyperglycemia, hyperkalemia, ?UTI. Endocrinology consulted. She is new to area and did not have PCP yet. Nursing Delirium Screen (Nu-Desc): Nursing Delirium Symptom Checklist Total Score: 0 Conversation with patient: Patient states she feels well. States she has had some confusion due to high blood sugars and infection. States she was independent at home. Recently moved from [place]. She lived there for 50 years. She [...] home. Advance Care Planning Healthcare Power of Parimutuel Ticket Cashier: Yes, Hi Nelson Financial Power of Parimutuel Ticket Cashier: Yes, Hi Nelson Code Status: Full Code No Known Allergies Current Facility-Administered Medications: acetaminophen (Tylenol) tablet 650 mg, 650 mg, Oral, q6h PRN OR acetaminophen (Tylenol) suppository 650 mg, 650 mg, Rectal, q6h PRN, Fish Montes MD amLODIPine (Norvasc) tablet 5 mg, 5 mg, Oral, Daily, Fish Montes MD, 5 mg at 09/21/24 08 apixaban (Eliquis) tablet 5 mg, 5 mg, [...] Fish Montes MD, 160 mg at 09/21/24 0858 gabapentin (Neurontin) capsule 300 mg, 300 mg, Oral, BID, Fish Montes MD, 300 mg at 09/21/24 0858 glucagon (human recombinant) injection 1 mg, 1 mg, IntraMUSCular, PRN, Fish Montes MD glucose oral gel 15 g, 15 g, Oral, PRN, Fish Montes MD insulin glargine (Lantus) injection 24 Units, 24 Units, SubCUTAneous, Nightly, ALEJANDRINA Urias CNP Insulin Lispro (Humalog) injection 0-12 Units, 0-12 Units, SubCUTAneous, TID WC, 6 Units at 09/21/24 1159 AND [DISCONTINUED] Insulin Lispro (Humalog) injection 0-12 Units, 0-12 Units, SubCUTAneous, Nightly, Fish Montes MD, 4 Units at 09/19/24 2137 Insulin Lispro (Humalog) injection 10 Units, 10 Units, SubCUTAneous, TID WC, ALEJANDRINA Urias CNP, 10 Units at 09/21/24 1159 levothyroxine (Synthroid, [...] Fish Montes MD, 20 mg at 09/21/24 0889 Past Medical History: Diagnosis Date Atrial fibrillation [...] 09/14 Namin/2 Repetition: 08/12 Three staged command: 3 Readin/1 Writin/1 Copyin/1 Clock Drawing Test: Correct Elements (1 pt each): Numbers 1-12 only included and Numbers are drawn inside the clock [place] [employer] [place] Total Score 2/7 Time Instructions: Ten past eleven Scores < 5 out of 7 correlate with significantly more driving errors J Gen Salt Operator Med 2005; 20:240-244 Labs and Imaging: Recent [...] you ALEJANDRINA Esteban CNP 09/21/24 3:38 PM [facility] CenterXnvjqu49-63-1848 Consult note* ALEJANDRINA Manzano CNP - 09/21/2024 9:28 AM EST Images from the original note were not included. [facility] Wound Care CONSULT Note Hanna Nelson [...] respiratory distress, no cyanosis Left 2nd toe: 6g1tPKF cm. Wound bed with stained callus noted. [...] apply Betadine and allow to dry, leave DYE BOX OPERATOR daily and PRN Right Plantar foot: DFU (Muscle) -cleanse with NS, lightly pack with Mesalt, cover with dry clean dressing daily and PRN Podiatry consulted Nutritional support Wound Care to follow Recommend to follow up at [facility] Outpatient wound care center after hospital discharge. Any questions or concerns please secure chat "[facility] wound/ostomy". Thank you for the consult! I [...] Mckeon DO at 09/21/2024 4:44 PM EST [facility] CenterEjvuwu80-78-8698 Consult note* ALEJANDRINA Urias CNP - 09/21/2024 8:15 AM ESTAssociated Order(s): IP CONSULT TO ENDOCRINOLOGY Department of Internal Medicine Division of Endocrinology, Diabetes, & Metabolism Endocrinology Note Patient Name: Hanna Nelson : 1940 AGE: 84 y.o. Room[facility]: [facility] Admission Date: 09/18/2024 Visit Date: 09/21/2024 Reason for Endocrine Consult: DM Ty2 uncontrolled hyperglycemia Provider/Team Requesting Consult: Dr. Montes PCP: No primary care provider on file. Outpt Relief Charge Nurse: No ASSESSMENT: Uncontrolled Hyperglycemia Hyperkalemia PLAN: Increase [...] alcohol pads for discharge. Outpt Follow Up-- [facility]ology SUBJECTIVE/HPI: CHIEF COMPLAINT: Chief Complaint Patient presents with Hyperglycemia Pt comes in today after being seen at [facility] yesterday for high sugar above 600 pt states she was able to get under 400 and was sent home yesterday but now pt states her sugar is high again and wont read on the monitor. Pt is alert and oriented but seems lethargic pts bgl is 535 Hanna is a 84 y.o. 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 Patient [...] to have javier for monitoring blood sugars. Co.Import phone at bedside. - Will plan to [...] for those mentioned in HPI. OBJECTIVE: Vitals: 09/19/24211609/20/2490809/20/24204109/21/24722 BP: 136/62 158/77 110/68 124/83 BP Location: [...] found for: "CHOLHDLRATIO" No results found for: "JIDW26ZEG" No results found for: "TSH", "O3FCBZM", "J9PWPMC", "THYROIDAB" Radiology reportsas per the Radiologist Radiology: POCT glucose meter Result Date: 09/19/2024 Performed by: [facility], [address] [place] [address], [place] [address] CLIA ID: [id number] POCT glucose meter Result Date: 09/19/2024 Performed by: [facility], [address] [place] [address], [place] [address] CLIA ID: [id number] POCT glucose meter Result Date: 09/19/2024 Performed by: [facility], [address] [place] [address], [place] [address] CLIA ID: [id number] POCT glucose meter Result Date: 09/19/2024 Performed by: [facility], [address] [place] [address], [place] [address] CLIA ID: [id number] POCT glucose meter Result Date: 09/19/2024 Performed by: [facility], [address] [place] [address], [place] [address] CLIA ID: [id number] POCT glucose meter Result Date: 09/19/2024 Performed by: [facility], [address] [place] [address], [place] [address] CLIA ID: [id number] POCT glucose meter Result Date: 09/18/2024 Performed by: [facility], [address] [place] [address], [place] [address] CLIA ID: [id number] POCT glucose meter Result Date: 09/18/2024 Performed by: [facility], [address] [place] [address], [place] [address] CLIA ID: [id number] POCT glucose meter Result Date: 09/18/2024 Performed by: [facility], [address] [place] [address], [place] [address] CLIA ID: [id number] POCT glucose meter Result Date: 09/18/2024 Performed by: [facility], [address] [place] [address] CLIA ID: [id number] POCT glucose meter Result Date: 09/18/2024 Performed by: [facility], [address] [place] [address] CLIA ID: [id number] POCT glucose meter Result Date: 09/18/2024 Performed by: [facility], [address] [place] [address] CLIA ID: [id number] History/Other: Past Medical History: Past Medical History: [...] Shahid MD at 09/22/2024 1:10 PM EST [facility] CenterRdrexg88-96-5533 History and physical note* Fish Montes MD - 09/18/2024 6:55 PM EST Attending History and Physical Admit Date: 09/18/2024 PCP: No primary care provider on file. CHIEF COMPLAINT: Blood sugars are running high Reason for Admission: Uncontrolled hyperglycemia. Hyperkalemia. Suspecting urinary tract infection History Obtained From: patient HISTORY OF PRESENT ILLNESS: Hanna is a 84 y.o. female with significant past medical history of qhn-vrqyafe-qxzasdbwt diabetesmellitus, hypertension, hyperlipidemia, hypothyroidism, atrial fibrillation on [...] 1966 Years since quittin.1 Smokeless tobacco: Never Substance [...] was advised of the results. IMPRESSION: Uncontrolled vtt-qgacryh-lwlbgjniq diabetes mellitus with hyperglycemia. Hyperkalemia. Acute on chronic kidney disease. Non-anion gap metabolic acidosis with Mild pseudohyponatremia secondary to hyperglycemia. Elevated blood pressure. History of: Renal fibrillation on Eliquis. Hypertension Hyperlipidemia. Wky-eoirmku-txiymvany diabetes mellitus Hypothyroidism. Neuropathy. Plan: Patient presented [...] signed by @MEMDNR@ on @TDNR@ at @NOWNR@ [facility] CenterZapwyk83-92-2414 [facility]02-07-2025 History and physical note* Fish [...] female with significant past medical history of zct-xhgkofw-hdqcdpcol diabetesmellitus, hypertension, hyperlipidemia, hypothyroidism, atrial fibrillation on [...] was advised of the results. IMPRESSION: Uncontrolled myk-gmmrzrg-elczkypit diabetes mellitus with hyperglycemia. Hyperkalemia. Acute on chronic kidney disease. Non-anion gap metabolic acidosis with Mild pseudohyponatremia secondary to hyperglycemia. Elevated blood pressure. History of: Renal fibrillation on Eliquis. Hypertension Hyperlipidemia. Fyl-lryurhk-dotkyokhb diabetes mellitus Hypothyroidism. Neuropathy. Plan: Patient presented [...] signed by @MEMDNR@ on @TDNR@ at @NOWNR@ documented in this [facility]02-07-2025 Emergency department Note* Janet Niño MD - 09/18/2024 3:05 PM EST EMERGENCY DEPARTMENT ENCOUNTER Pt Name: Hanna Nelson Birthdate 1940 Date of evaluation: 09/18/2024 ED Provider: Janet Niño MD CHIEF COMPLAINT Chief Complaint Patient presents with Hyperglycemia Pt comes in today after being seen at [facility] yesterday for high sugar above 600 pt [...] Response: Oriented Best Motor Response: Follows commands Cheney Coma Scale Score: 15 PHYSICAL EXAM ED [...] Abnormal Glucose >450 (*) Narrative: Performed by: [facility], [address] [place] [address] CLIA ID: [id number] POCT GLUCOSE METER UNSOLICITED RESULTS - Abnormal Glucose >450 (*) Narrative: Performed by: [facility], [address] [place] [address] CLIA ID: [id number] POCT GLUCOSE METER UNSOLICITED RESULTS - Abnormal Glucose >450 (*) Narrative: Performed by: [facility] [place] [facility], [address] [place] [address] CLIA ID: [id number] BETA HYDROXYBUTYRATE - Normal BETA HYDROXYBUTYRATE 2.7 COMPLETE URINALYSIS WITH REFLEX TO CULTURE Narrative: The following orders were created for panel order Urinalysis Complete with reflex to Culture. Procedure Abnormality Status --------- ------ Complete Urinalysis[[id number]] Abnormal Final result Please view results for [...] Emergency Medicine Provider Janet Niño MD 09/18/24 1732 documented in this [facility]02-07-2025 Physician Emergency department Note* Janet Niño MD - 09/18/2024 3:05 PM EST EMERGENCY DEPARTMENT ENCOUNTER Pt Name: Hanna Nelson Birthdate 1940 Date of evaluation: 09/18/2024 ED Provider: Janet Niño MD CHIEF COMPLAINT Chief Complaint Patient presents with Hyperglycemia Pt comes in today after being seen at [facility] yesterday for high sugar above 600 pt [...] 1965 Years since quittin.1 Smokeless tobacco: Never Substance and Sexual Activity Alcohol use: Not Currently Drug use: Never SCREENINGS Cheney Coma Scale Best Eye Response: Spontaneous Best Verbal Response: Oriented Best Motor Response: Follows commands Cheney Coma Scale Score: 15 PHYSICAL EXAM ED [...] Abnormal Glucose >450 (*) Narrative: Performed by: [facility], [address] [place] [address] CLIA ID: [id number] POCT GLUCOSE METER UNSOLICITED RESULTS - Abnormal Glucose >450 (*) Narrative: Performed by: [facility] [place] [facility], [address] [place] [address] CLIA ID: [id number] POCT GLUCOSE METER UNSOLICITED RESULTS - Abnormal Glucose >450 (*) Narrative: Performed by: [facility] [place] [facility], [address] [place] [address] CLIA ID: [id number] BETA HYDROXYBUTYRATE - Normal BETA HYDROXYBUTYRATE 2.7 COMPLETE URINALYSIS WITH REFLEX TO CULTURE Narrative: The following orders were created for panel order Urinalysis Complete with reflex to Culture. Procedure Abnormality Status --------- ------ Complete Urinalysis[[id number]] Abnormal Final result Please view results for [...] Emergency Medicine Provider Janet Niño MD 09/18/24 4796 [facility] CenterLfqmjm05-04-0075 Hospital Discharge instructions* Discharge Instructions* Damian Loza DO - 09/17/2024 3:10 PM EST You have an appointment scheduled with Dr Chance on 11/09/24 at 9:30am [address] [place] [id number] Return to the ER if your sugar remains elevated or if you have weakness, vomiting, abdominal pain or other concerning symptoms. documented in this [facility]02-06-2025 Emergency department Note* Keisha Pleitez RN - 09/17/2024 12:47 PM EST Lab called with alert high blood sugar of 613. Physician aware. [facility] CenterBogvzf50-65-2367 Emergency department Note* Keisha Pleitez RN - [...] monitor read "high". He made her come tothe ER and patient states she would not [...] Abnormal Glucose >450 (*) Narrative: Performed by: [facility], [address] [place] [address] CLIA ID: [id number] POCT GLUCOSE METER UNSOLICITED RESULTS - Abnormal Glucose >450 (*) Narrative: Performed by: [facility], [address] [place] [address] CLIA ID: [id number] GLUCOSE, RANDOM All other labs were within [...] of 09/17/24 1602 Renee Sep 17, 2024 1309 ANION GAP: 10 [MJ] ED Course User [...] Provider Damian Loza DO 09/17/24 1605 Damian Loza DO 09/17/24 1606 * Keisha Pleitez RN - 09/17/2024 11:59 AM EST Brought by son for high blood sugar readings today. Pt with no complaints. States has had breakfast, cookies, pretzels and ice cream today. Alert and oriented to self and place only-not new per family. Blood sugar 581 documented in this [facility]02-06-2025 Emergency department Triage note* Keisha Pleitez RN - 09/17/2024 11:59 AM EST Brought by son for high blood sugar readings today. Pt with no complaints. States has had breakfast, cookies, pretzels and ice cream today. Alert and oriented to self and place only-not new per family. Blood sugar 581 EverstringFgwqny26-09-9002 Physician Emergency department Note* Damian Loza DO [...] Abnormal Glucose >450 (*) Narrative: Performed by: [facility], [address] [place] [address] CLIA ID: [id number] POCT GLUCOSE METER UNSOLICITED RESULTS - Abnormal Glucose >450 (*) Narrative: Performed by: [facility], [address] [place] [address] CLIA ID: [id number] GLUCOSE, RANDOM All other labs were within [...] Provider Damian Loza DO 09/17/24 1605 Damian Loza DO 09/17/24 1606 [facility] Daktsz55-20-4417 History of Present illness Narrative* Estiven Mcfadden DPM - 03/19/2024 1:30 PM EDT [facility] 03/19/2024 Patient Name: Hanna [...] for the 03/19/24 encounter (Hospital Encounter) with [facility] 4. Allergies Allergen Reactions [...] - 99 MG/DL Final Comment: (NOTE) The [place] [employer] recommends the following guidelines: MG/DL [...] - 6.0 % Final Comment: (NOTE) The [place] [employer] recommends the following Guidelines: 5.7-6.4% Indicates increased risk for diabetes (Prediabetes). >6.5% Diagnostic of diabetes. In the absence of unequivocal hyperglycemia, results should be confirmed by repeat test. <7% Glycemic recommendation for non adults with diabetes. [place] [employer], Standards of Medical Care in [...] or other health record. documented in this encounterRegional Medical CenterCdxsfp61-25-6246 Miscellaneous Notes* Care Plan - Trini Boyce RN - 03/19/2024 1:30 PM EDT SQ debridement completed by CLIFF. Pt tolerated well. Continue current POC. documented in this encounterRegional Medical CenterIpgwpc68-15-7182 Note* Care Plan - Trini Boyce RN - 03/19/2024 1:30 PM EDT SQ debridement completed by Pt tolerated well. Continue current POC. [facility] CenterSbfwsu53-40-0186 Hospital Discharge instructions* Discharge Instructions * Trini Boyce RN - 03/17/2024 3:38 PM EDT You have been treated at [facility] for reasons of wound healing. WOUND CARE: [...] If any of the following occur, contact [phone] immediately or go to your nearest emergency [...] your scheduled appointment, occasionally patients [facility] need priority care. In that case we [...] have any questions, please call us at [phone] documented in this encounterRegional Medical CenterYehyyj13-71-1832 History of Present illness Narrative* Estiven Mcfadden DPM - 03/05/2024 1:30 PM EDT [facility] 03/05/2024 Patient Name: Hanna [...] taking for the 03/05/24 encounter (Hospital Encounter)with [facility] 4. Allergies Allergen Reactions [...] - 99 MG/DL Final Comment: (NOTE) The [place] [employer] recommends the following guidelines: MG/DL [...] - 6.0 % Final Comment: (NOTE) The [place] [employer] recommends the following Guidelines: 5.7-6.4% Indicates increased risk for diabetes (Prediabetes). >6.5% Diagnostic of diabetes. In the absence of unequivocal hyperglycemia, results should be confirmed by repeat test. <7% Glycemic recommendation for non adults with diabetes. [place] [employer], Standards of Medical Care in [...] or other health record. documented in this encounterRegional Medical CenterTsrbii12-38-0833 Miscellaneous Notes* Care Plan - Trini Boyce RN - 03/05/2024 1:30 PM EDT Stable. Continue POC. documented in this encounterRegional Medical CenterAhfueg28-00-2267 Note* Care Plan - Trini Boyce RN - 03/05/2024 1:30 PM EDT Stable. Continue POC. Regional Medical CenterZurbpr56-17-3747 Hospital Discharge instructions* Discharge Instructions * Trini Boyce RN - 03/05/2024 11:28 AM EDT You have been treated at [facility] for reasons of wound healing. WOUND CARE: [...] If any of the following occur, contact [phone] immediately or go to your nearest emergency [...] your scheduled appointment, occasionally [facility]. In that case we [...] have any questions, please call us at [phone] documented in this encounterRegional Medical CenterEotoyp33-95-4190 History of Present illness Narrative* Estiven Mcfadden DPM - 01/30/2024 1:45 PM EDT [facility] 01/30/2024 Patient Name: Hanna [...] with drainage 01/30/24 1300 Wound Bed Appearance [place] 01/30/24 1300 Drainage Amount Moderate 01/30/24 1300 [...] taking for the 01/30/24 encounter (Hospital Encounter)with [facility] 5. Allergies Allergen Reactions [...] - 99 MG/DL Final Comment: (NOTE) The [place] [employer] recommends the following guidelines: MG/DL [...] - 6.0 % Final Comment: (NOTE) The [place] [employer] recommends the following Guidelines: 5.7-6.4% Indicates increased risk for diabetes (Prediabetes). >6.5% Diagnostic of diabetes. In the absence of unequivocal hyperglycemia, results should be confirmed by repeat test. <7% Glycemic recommendation for non adults with diabetes. [place] [employer], Standards of Medical Care in [...] or other health record. documented in this encounterRegional Medical CenterBbvrhi90-45-1436 Miscellaneous Notes* Care Plan - Trini Boyce RN - 01/30/2024 1:45 PM EDT Continue POC. documented in this encounterRegional Medical CenterKjfpjq77-86-4279 Note* Care Plan - Trini Boyce RN - 01/30/2024 1:45 PM EDT Continue POC. [facility] Medical CenterCanjrr26-65-6438 Hospital Discharge instructions* Discharge Instructions * Trini Boyce RN - 01/28/2024 10:59 AM EDT You have been treated at [facility] for reasons of wound healing. WOUND CARE: [...] If any of the following occur, contact [phone] immediately or go to your nearest emergency [...] your scheduled appointment, occasionally patients admitted to [facility] need priority care. In that case we [...] have any questions, please call us at [phone] documented in this encounterRegional Medical CenterYxnrir26-34-2861 History of Present illness Narrative* Estiven Mcfadden DPM - 01/23/2024 1:30 PM EDT [facility] 01/23/2024 Patient Name: Hanna Nelson : 1940 AGE: [age] year old GENDER: Female Chief Complaint/Reason for Visit Hanna Nelson is a 81 year old female who presents today for wound care of chronic wound on the bottom of the right foot. Nothing new. Had a good time on her vacation to [place]. Thinks that she possibly missed an appointment with her facilities director to hand picker her new diabetic inserts and shoes [...] with drainage 01/23/24 1300 Wound Bed Appearance [place] 01/23/24 1300 Drainage Amount Moderate 01/23/24 1300 [...] taking for the 01/23/24 encounter (Hospital Encounter)with [facility] 1. Allergies Allergen Reactions [...] - 99 MG/DL Final Comment: (NOTE) The [place] [employer] recommends the following guidelines: MG/DL [...] - 6.0 % Final Comment: (NOTE) The [place] [employer] recommends the following Guidelines: 5.7-6.4% Indicates increased risk for diabetes (Prediabetes). >6.5% Diagnostic of diabetes. In the absence of unequivocal hyperglycemia, results should be confirmed by repeat test. <7% Glycemic recommendation for non adults with diabetes. [place] [employer], Standards of Medical Care in [...] or other health record. documented in this encounterRegional Medical [id number] Miscellaneous Notes* Care Plan - Trini Boyce RN - 01/23/2024 1:30 PM EDT Problem: Skin Integrity - Impaired Goal: Decrease in wound size Outcome: Progressing Goal: Skin integrity intact Outcome: Progressing documented in this encounterRegional Medical CenterSeynec38-51-8193 Note* Care Plan - Trini Boyce RN - 01/23/2024 1:30 PM EDT Problem: Skin Integrity - Impaired Goal: Decrease in wound size Outcome: Progressing Goal: Skin integrity intact Outcome: Progressing Regional Medical CenterSuyfec38-60-9477 NoteProblem: Skin Integrity - Impaired Goal: Decrease in wound size Outcome: Progressing Goal: Skin integrity intact [facility] Discharge instructions* Discharge Instructions* Trini Boyce RN - 01/22/2024 10:27 AM EDT You have been treated at [facility] for reasons of wound healing. WOUND CARE: [...] If any of the following occur, contact [phone] immediately or go to your nearest emergency [...] your scheduled appointment, occasionally patients admitted to [facility] need priority care. In that case we [...] have any questions, please call us at [phone] documented in this encounterRegional Medical CenterHadqfy54-64-0809 Hospital Discharge instructions* Discharge Instructions* Trini Boyce RN - 01/09/2024 2:10 PM EDT You have been treated at [facility] for reasons of wound healing. WOUND CARE: [...] If any of the following occur, contact [phone] immediately or go to your nearest emergency [...] your scheduled appointment, occasionally patients admitted to [facility] need priority care. In that case we [...] have any questions, please call us at [phone] documented in this encounterRegional Medical CenterNttamn72-77-9752 Miscellaneous Notes* Care Plan - Trini Boyce RN - 01/09/2024 1:30 PM EDT No wound progression. documented in this encounterRegional Medical CenterMkgopy58-86-0942 Note* Care Plan - Trini Boyce RN - 01/09/2024 1:30 PM EDT No wound progression. Regional Medical CenterNggrvr17-55-2892 History of Present illness Narrative* Estiven Mcfadden DPM - 12/19/2023 12:30 PM EDT [facility] Center 12/19/2023 Patient Name: Hanna [...] the area as directed -Patient going to [place] for 10 days. She will be gone [...] with drainage 12/19/23 1200 Wound Bed Appearance [place] 12/19/23 1200 Drainage Amount Moderate 12/19/23 1200 [...] medicated soaks 12/19/23 1200 Wound Bed Appearance [place] 12/19/23 1200 Drainage Amount Moderate 12/19/23 1200 [...] for the 12/19/23 encounter (Hospital Encounter) with [facility] 1. Allergies Allergen Reactions [...] - 99 MG/DL Final Comment: (NOTE) The [place] [employer] recommends the following guidelines: MG/DL [...] - 6.0 % Final Comment: (NOTE) The [place] [employer] recommends the following Guidelines: 5.7-6.4% Indicates increased risk for diabetes (Prediabetes). >6.5% Diagnostic of diabetes. In the absence of unequivocal hyperglycemia, results should be confirmed by repeat test. <7% Glycemic recommendation for non adults with diabetes. [place] [employer], Standards of Medical Care in [...] or other health record. documented in this encounterRegional Medical CenterOpcana43-56-7767 Miscellaneous Notes* Care Plan - Coonrod, Trini M, RN - 12/19/2023 12:30 PM EDT Progressing. documented in this encounterRegional Medical CenterQmxjhw04-87-9083 Note* Care Plan - Trini Boyce RN - 12/19/2023 12:30 PM EDT Progressing. Regional Medical CenterYlqxxn88-79-9293 Hospital Discharge instructions* Discharge Instructions * Trini Boyce RN - 12/16/2023 11:16 AM EDT You have been treated at [facility] for reasons of wound healing. WOUND CARE: [...] If any of the following occur, contact [phone] immediately or go to your nearest emergency [...] your scheduled appointment, occasionally patients admitted to [facility] need priority care. In that case we [...] have any questions, please call us at [phone] documented in this encounterRegional Medical CenterTluoqg51-79-7149 History of Present illness Narrative* Estiven Mcfadden DPM - 12/12/2023 2:15 PM EDT [facility] 12/12/2023 Patient Name: Hanna [...] with drainage 12/12/23 1400 Wound Bed Appearance [place] 12/12/23 1400 Drainage Amount Moderate 12/12/23 1400 [...] to air 12/12/23 1400 Wound Bed Appearance [place] 12/12/23 1400 Drainage Amount Small 12/12/23 1400 [...] for the 12/12/23 encounter (Hospital Encounter) with [facility] 1. Allergies Allergen Reactions [...] - 99 MG/DL Final Comment: (NOTE) The [place] [employer] recommends the following guidelines: MG/DL [...] - 6.0 % Final Comment: (NOTE) The [place] [employer] recommends the following Guidelines: 5.7-6.4% Indicates increased risk for diabetes (Prediabetes). >6.5% Diagnostic of diabetes. In the absence of unequivocal hyperglycemia, results should be confirmed by repeat test. <7% Glycemic recommendation for non adults with diabetes. [place] [employer], Standards of Medical Care in [...] or other health record. documented in this encounterRegional Medical CenterJbceew11-38-2617 Hospital Discharge instructions* Discharge Instructions* CoTrini walter RN - 12/12/2023 9:52 AM EDT You have been treated at [facility] for reasons of wound healing. WOUND CARE: [...] If any of the following occur, contact [phone] immediately or go to your nearest emergency [...] your scheduled appointment, [facility]. In that case we [...] have any questions, please call us at [phone] documented in this encounterRegional Medical CenterWvjtvu02-86-6407 History of Present illness Narrative* Estiven Mcfadden DPM - 11/25/2023 2:45 PM EDT [facility] 11/25/2023 Patient Name: Hanna [...] with drainage 11/25/23 1500 Wound Bed Appearance [place] 11/25/23 1500 Drainage Amount Small 11/25/23 1500 [...] taking for the 11/25/23 encounter (Hospital Encounter)with [facility] 2. Allergies Allergen Reactions [...] - 99 MG/DL Final Comment: (NOTE) The [place] [employer] recommends the following guidelines: MG/DL [...] - 6.0 % Final Comment: (NOTE) The [place] [employer] recommends the following Guidelines: 5.7-6.4% Indicates increased risk for diabetes (Prediabetes). >6.5% Diagnostic of diabetes. In the absence of unequivocal hyperglycemia, results should be confirmed by repeat test. <7% Glycemic recommendation for non adults with diabetes. [place] [employer], Standards of Medical Care in [...] or other health record. documented in this encounterRegional Medical CenterJpansm30-70-3202 Hospital Discharge instructions* Discharge Instructions* Trini Boyce RN - 11/22/2023 8:42 AM EDT You have been treated at [facility] for reasons of wound healing. WOUND CARE: [...] If any of the following occur, contact [phone] immediately or go to your nearest emergency [...] your scheduled appointment, occasionally patients admitted to [facility] need priority care. In that case we [...] have any questions, please call us at [phone] documented in this encounterRegional Medical CenterWzbizk19-38-7342 History of Present illness Narrative* Estiven Mcfadden DPM - 11/14/2023 1:30 PM EDT [facility] W[facility] 11/14/2023 Patient Name: Hanna [...] diabetic shoes modified soon with her regular facilities director -Continue with daily local wound care to [...] for the 11/14/23 encounter (Hospital Encounter) with [facility] 4. Allergies Allergen Reactions [...] - 99 MG/DL Final Comment: (NOTE) The [place] [employer] recommends the following guidelines: MG/DL [...] - 6.0 % Final Comment: (NOTE) The [place] [employer] recommends the following Guidelines: 5.7-6.4% Indicates increased risk for diabetes (Prediabetes). >6.5% Diagnostic of diabetes. In the absence of unequivocal hyperglycemia, results should be confirmed by repeat test. <7% Glycemic recommendation for non adults with diabetes. [place] [employer], Standards of Medical Care in [...] or other health record. documented in this encounterPreTrinity Health SystemCzidxr57-02-0101 Miscellaneous Notes* Care Plan - Trini Boyce RN - 11/14/2023 1:30 PM EDT Wound larger. SQ debridement completed by JK. documented [place] encounterT[place] [address]-04-2024 Note* Care Plan - Trini Boyce RN - 11/14/2023 1:30 PM EDT Wound larger. SQ debridement completed by CLIFF. [address]02-2024 Nurse Note* Gin Kay RN - 11/12/2023 3:14 PM EDT Discussed discharge paperwork and when to take medications. Teach back and all questions answered. IV removed. [place] [address]-02-2024 Nurse Note* Gin Kay RN - 11/12/2023 3:14 PM EDT Discussed discharge paperwork and when to take medications. Teach back and all questions answered. IV removed. documented in [place] encounterT[place] [address]-02-2024 Note* Care Plan - Gin Kay RN [...] 1132 by Gin Kay RN Outcome: Progressing [place] [address]-02-2024 Miscellaneous Notes* Care Plan - Gin Kay RN - 11/12/2023 3:12 PM EDT Problem: Skin Integrity - Impaired Goal: Decrease in wound size 11/12/2023 1512 by Gin Kay RN Outcome: Completed 11/12/2023 1132 by Gin Kay RN Outcome: Progressing Goal: Skin integrity intact 11/12/2023 151 by Gin Kay RN Outcome: Completed 11/12/2023 [...] 151 by Gin Kay RN Outcome: Completed 11/12/2023 [...] Progressing Goal: Participation in care planning 11/12/2023 151 by Gin Kay RN Outcome: Completed 11/12/2023 1132 by Gin Kay RN Outcome: Progressing Problem: Discharge Planning Goal: Knowledge of diabetes self-management 11/12/2023 1512 by Gin Kay RN Outcome: Completed 11/12/2023 1132 by Gin Kay RN Outcome: Progressing Problem: Injury Risk, Abnormal Serum Glucose Level Goal: Glucose level within specified parameters 11/12/2023 151 by Gin Kay RN Outcome: Completed 11/12/2023 [...] specified parameters Outcome: Progressing documented in this encounterRegional Medical CenterUmhlua87-41-0201 [employer]IC[employer] Employee Opening Interview Progress Note Presents for evaluation/treatment of Cellulitis of right lower leg [L03.115]. 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 Met with Hanna Nelson who is a 83 year old female at bedside. Introduced self and role of case managers; asked for and received permission to discuss [...] supplier): none Passport/Waiver Services: none If yes, case managers name/number:n/a Transportation needs at discharge: amber spears Declines home care follow-up at discharge. PCP Name : Lisy Pace [phone] Patient to have prescriptions filled at [facility] Outpt Pharmacy at dc: Yes If no, [...] Document Type Received On Received By Description [facility] IM Copy of Signed 11/12/23 Lexis Robison RN [facility] IM Copy of Signed 10/16/20 Indu Vega RN Will monitor patient's progress and readiness for discharge. Electronically signed by: Lexis Robison RN, Physical Plant Employee, Phone [phone], 11/12/2023 11:58 AM Weekday Office Hours: 8:30-5:00. Holiday/Weekends [phone]. For urgent needs between 5p-7p, please call [phone]. If after 7pm, please call [facility] AO at [phone] or [facility] AO at [phone].[facility]04-02-2024 History of Present illness Narrative* Lexis Robison RN - 11/12/2023 11:58 AM EDT [facility] Physical Plant Employee Opening Interview Progress Note Presents for evaluation/treatment of Cellulitis of right lower leg [L03.115]. 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 Met with Hanna Lele Antonio who is a 83 year old female at bedside. Introduced self and role of case managers; asked for and received permission to discuss [...] supplier): none Passport/Waiver Services: none If yes, case managers name/number:n/a Transportation needs at discharge: car, amber Velazquez Declines home care follow-up at discharge. PCP Name : Lisy Pace [phone] Patient to have prescriptions filled at [facility] Outpt Pharmacy at dc: Yes If no, [...] Document Type Received On Received By Description [facility] IM Copy of Signed 11/12/23 Lexis Robison RN [facility] IM Copy of Signed 10/16/20 Indu Vega RN Will monitor patient's progress and readiness for discharge. Electronically signed by: Lexis Robison RN, Physical Plant Employee, Phone [phone], 11/12/2023 11:58 AM Weekday Office Hours: 8:30-5:00. Holiday/Weekends [phone]. For urgent needs between 5p-7p, please call [phone]. If after 7pm, please call [facility] at [phone] or [facility] at [phone]. * Liss Choi [facility] - 11/12/2023 11:32 AM EDT [facility] Pharmacy Referral Sign-off 11/12/2023 Patient's Name: Hanna [...] Choi RPH, 11/12/2023 11:32 AM * Mary Solis DO - 11/12/2023 8:27 AM EDT Images from the original note were not included. [facility] Hospitalist Progress Note Disposition/Assessment and Plan [...] Intake/Output Summary (Last 24 hours) at 11/12/2023 08 Last data filed at 11/12/2023 0627 Gross [...] BID Bautista White MD 300 mg at 11/11/232142 multivitamin with folic acid (THERAGRAN) 400 mcg tablet 1 Tab 1 Tab Oral Daily Bautista White MD 1 Tab at 11/11/23 0931 HYDROcodone-acetaminophen (NORCO) 5-325 mg tablet 1 Tab 1 Tab Oral Q8H PRN Bautista White MD levothyroxine (SYNTHROID) tablet 112 mcg 112 mcg Oral AC Breakfast Bautista hWite MD 112 mcg at 11/12/23 0555 oxybutynin (DITROPAN XL) SR-tablet 10 mg 10 mg Oral Daily Bautista White MD 10 mg at 11/11/23 0931 dextrose (GLUTOSE) gel 15 g Carb 15 g Carb Oral PRN Bautista White MD dextrose 50 % in water (D50W) intravenous syringe 5-12.5 g 5-12.5 g IV Push PRN Bautista White, MD glucagon injection 1 mg 1 mg [...] original note were not included. [facility] Hospitalist Progress Note 11/11/2023 Patient Identifier/Hospitalist Patient: Hanna Nelson; 1940 I saw and examined the patient on 11/11/2023 at 1040 in 111/111-1. Hospitalist: Jalil Blanton MD Please contact through [email or web address] Secure Chat Disposition/Assessment and Plan Disposition: Likely [...] 1 Tab 1 Tab Oral Q8H PRN Batuista White MD levothyroxine (SYNTHROID) tablet 112 mcg [...] Max taken time: 11/11/23 0800 BP: 107/58 (11/11/23 0800) Pulse: 79 (11/11/23 0800) Resp: 18 (11/11/23 0800) SpO2: 96 % (11/11/23 0800) Physical Examination: General: awake, alert, oriented and [...] MD, 11/11/2023 1:18 PM * Gayle Oswald - 11/11/2023 11:20 AM EDT Met with patient to discuss home health care. Patient declining home health, despite HCL explaining benefits of services and encouragement. Patient s reason for declining: Stated is very independent. Patient instructed that if they change their mind to please let their case managers, physician, or bedside nurse know and they can contact us to revisit them. Physician notified: N/A Notified via: N/A Discussion with MD: N/A Electronically signed by: Gayle Oswald, 11/11/2023 11:20 AM * Gayle Oswald - 11/11/2023 8:15 AM EDT Patient to be assessed by Rn Immunology for potential home care needs. Liaison will then meet with patient/caregiver to discuss home care services. Liaison will confirm if patient/caregiver is agreeable to home care services and verify agency preference. Once the home care agency has accepted the referral, the agency will be added to patient's follow-up provider list. Electronically signed by: Gayle Oswald 11/11/2023 8:15 AM * Reuben Rizvi [facility] - 11/11/2023 1:47 AM EDT [facility] Pharmacy Vancomycin Referral Referral Date: 11/10/23 Referring [...] when appropriate. Electronically signed by: Reuben Rizvi [facility], 11/11/2023 1:48 AM documented in this encounterRegional Medical CenterRvwivp65-25-0088 Note* Care Plan - Gin Kay RN [...] Glucose level within specified parameters Outcome: Progressing [facility]04-02-2024 [facility] Pharmacy Referral Sign-off 11/12/2023 Patient's Name: Hanna Nelson Referring Provider: Bautista White MD Thank you for allowing pharmacy to participate in the management of your patient's vancomycin therapy. At this time, pharmacy will sign-off from the case as the therapy has been discontinued. Please consider referral to pharmacy again if the need arises. Electronically signed by: Liss Choi [facility], 11/12/2023 11:32 [facility]04-02-2024 [facility] Hospitalist Progress Note Disposition/Assessment and Plan [...] Bautista White MD 1 Syringe at 11/11/23 220 saline flush 10 mL IV Push PRN Bautista White MD NaCl 0.9% 1,000 mL 1,000 mL Intravenous Continuous PRN Bautista White MD 10 mL/hr at 11/11/232139 1,000 mL at 11/11/23 214 acetaminophen (TYLENOL) tablet 650 mg 650 mg [...] Daily PRN Bautista White (more content not included)...[facility]04-02-2024 Note* Care Plan - Bridget Downing RN [...] Goal: Knowledge of diabetes self-management Outcome: Progressing [facility] Medical CenterKnjzio69-60-7033 Hospital Discharge instructions* Discharge Instructions * Trini Boyce RN - 11/11/2023 3:45 PM EDT You have been treated at [facility] for reasons of wound healing. WOUND CARE: [...] If any of the following occur, contact [phone] immediately or go to your nearest emergency [...] your scheduled appointment, occasionally patients admitted to [facility] need priority care. In that case we [...] have any questions, please call us at [phone] documented in this encounterPremier Gxfdtu03-64-5410 [facility] Hospitalist Progress Note 11/11/2023 Patient Identifier/Hospitalist Patient: Hanna Nelson; 1940 I saw and examined the patient on 11/11/2023 at 1040 in 111/111-1. Hospitalist: Jalil Blanton MD Please contact through [employer] Secure Chat Disposition/Assessment and Plan Disposition: Likely [...] 20 Units Subcutaneous Daily at 2100 Bautista Wihte MD 20 Units at 11/10/232037 dextrose (GLUTOSE) [...] Max taken time: 11/11/23 (more content not included)...[facility]04-01-2024 Note* Care Plan - Lidia Lundy RN [...] Glucose level within specified parameters Outcome: Progressing Regional Medical CenterDxdije41-57-3665 [facility] Pharmacy Vancomycin Referral Referral Date: 11/10/23 Referring [...] when appropriate. Electronically signed by: Reuben Rizvi [facility], 11/11/2023 1:48 [facility]24 Note* Care Plan - Estevan Oswald RN [...] Glucose level within specified parameters Outcome: Progressing Regional Medical CenterYxbszo52-61-9253 History and physical note* Bautista White MD - 11/10/2023 7:02 PM EDT Images from the original note were not included. [facility] History & Physical 11/10/2023 Patient [...] CAUDAL EPIDURAL BLOCK 09/02/2017 ECHO Historical 1987 [facility]- ? Why -Results Good EPIDURAL LUMBAR TRANSFORMINAL Left 03/25/2017 L3-L4 LAMINECTOMY DECOMPRESSION POSTERIOR 3 LEVEL N/A 10/22/2017 LAMINECTOMY DECOMPRESSION POSTERIOR 3 LEVEL performed by Adolfo Edwards MD at [facility] MAIN OR LIG/TRNSXJ FLP TUBE ABDL/VAG APPR UNI/BI Ligation or Transection of Fallopian Tubes, Unilat or Bilat LUMBAR TRANSFORAMINAL EPIDURAL 04/29/2017 L4-L5 Other Surgical History Left 01/24/2015 Left Foot Metatarsal Head Bone Biopsy per Dr Ann Vasquez @ [facility] Other Surgical History Right 10/17/2015 Irigation W/Sharp Excisional Debridement Right Foot. 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 [facility] Surgical History 2009 Fractured Hip REMOVAL GALLBLADDER ~1970 [facility] WOUND VAC APPLICATION/CHANGE N/A 10/22/2017 WOUND VAC APPLICATION/CHANGE performed by Adolfo Edwards MD at [facility] MAIN OR Social History Socioeconomic History Marital [...] of Onset Diabetes Father Heart Disease Father [place] Hypertension Father Cancer Father Prostate No Known [...] C) Max taken time: 11/10/231640 BP: 137/59 (11/10/23 182) Pulse: 90 (11/10/231820) Resp: 16 (03/31/24 1641) SpO2: 98 % (11/10/23 1821) General: Alert and oriented. Not in distress. [...] Dictated by Liset Wilson MD, PhD Workstation ID:[id number] Signature Electronically signed by: Bautista White MD, 11/10/2023 7:02 PM [employer] Phone: 1(852) 723-567403-31-2024 History and physical note* Bautista White MD - 11/10/2023 7:02 PM EDT Images from the original note were not included. [facility] History & Physical 11/10/2023 Patient [...] CAUDAL EPIDURAL BLOCK 09/02/2017 ECHO Historical 1987 [facility]- ? Why -Results Good EPIDURAL LUMBAR TRANSFORMINAL Left 03/25/2017 L3-L4 LAMINECTOMY DECOMPRESSION POSTERIOR 3 LEVEL N/A 10/22/2017 LAMINECTOMY DECOMPRESSION POSTERIOR 3 LEVEL performed by Adolfo Edwards MD at [facility] MAIN OR LIG/TRNSXJ FLP TUBE ABDL/VAG APPR UNI/BI Ligation or Transection of Fallopian Tubes, Unilat or Bilat LUMBAR TRANSFORAMINAL EPIDURAL 04/29/2017 L4-L5 Other Surgical History Left 01/24/2015 Left Foot Metatarsal Head Bone Biopsy per Dr Ann Vasquez @ [facility] Other Surgical History Right 10/17/2015 Irigation W/Sharp Excisional Debridement Right Foot. 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 per Dr Loaiza @ [facility] [place] History 2009 Fractured Hip REMOVAL GALLBLADDER ~1970 [facility] WOUND VAC APPLICATION/CHANGE N/A 10/22/2017 WOUND VAC APPLICATION/CHANGE performed by Adolfo Edwards MD at [facility] MA[facility] OR Social History Socioeconomic History Marital [...] of Onset Diabetes Father Heart Disease Father [place] Hypertension Father Cancer Father Prostate No Known [...] C) Max taken time: 11/10/231640 BP: 137/59 (11/10/23 182) Pulse: 90 (11/10/231820) Resp: 16 (11/10/231640) SpO2: 98 % (03/31/24 1821) General: Alert and oriented. Not in distress. [...] Dictated by Liset Wilson MD, PhD Workstation ID:[id number] Signature Electronically signed by: Bautista White MD, 11/10/2023 7:02 PM documented in this encounterRegional Medical CenterNswwtq98-96-6950 Emergency department Note* Pinky Martinez RN - 11/10/2023 6:52 PM EDT Patient provided damp wash cloth per request, denies any other needs at this time. Call light within reach. [facility] Medical CenterIiplor96-46-0022 Emergency department Note* Pinky Martinez RN - 11/10/2023 6:52 PM EDT Patient provided damp wash cloth per request, denies any other needs at this time. Call light within reach. * Pinky Martinez RN - 11/10/2023 6:20 PM EDT ED REPORT SUMMARY ED ARRIVAL COMPLAINT(S) Cellulitis ADMISSION DIAGNOSIS No admission diagnoses are documented for this encounter. ED Location: [facility] [place] Private Visit: No Language: Indonesian Admitting: Patient Class: Level of Care: Service: [...] Normal URINE () INTEGUMENTARY Skin: Warm, Dry, [place] Color, cont: Cap refill < 2 sec [...] of Onset Diabetes Father Heart Disease Father [place] Hypertension Father Cancer Father Prostate No Known [...] CAUDAL EPIDURAL BLOCK 09/02/2017 ECHO Historical 1987 [facility]- ? Why -Results Good EPIDURAL LUMBAR TRANSFORMINAL Left 03/25/2017 L3-L4 LAMINECTOMY DECOMPRESSION POSTERIOR 3 LEVEL N/A 10/22/2017 LAMINECTOMY DECOMPRESSION POSTERIOR 3 LEVEL performed by Adolfo Edwards MD at [facility] MAIN OR LIG/TRNSXJ FLP TUBE ABDL/VAG APPR UNI/BI Ligation or Transection of Fallopian Tubes, Unilat or Bilat LUMBAR TRANSFORAMINAL EPIDURAL 04/29/2017 L4-L5 Other Surgical History Left 01/24/2015 Left Foot Metatarsal Head Bone Biopsy per Dr Ann Vasquez @ [facility] Other Surgical History Right 10/17/2015 Irigation W/Sharp Excisional Debridement Right Foot. 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 documented in this encounterRegional Medical CenterEjcwkv22-04-8405 Emergency department Note* Pinky Martinez RN - 11/10/2023 6:20 PM EDT ED REPORT SUMMARY ED ARRIVAL COMPLAINT(S) Cellulitis ADMISSION DIAGNOSIS No admission diagnoses are documented for this encounter. ED Location: [facility] Private Visit: No Language: Indonesian Admitting: Patient Class: Level of Care: Service: [...] Normal URINE () INTEGUMENTARY Skin: Warm, Dry, [place] Color, cont: Cap refill < 2 sec [...] COMMENTS: Data Validated/Updated: 11/10/2023 at 6:20 PM Regional Medical CenterIbqkdj23-21-4583 Emergency department Note* Pinky Martinez RN - 11/10/2023 6:09 PM EDT Patient provided cup of water, approved by Dr. Rubio. [facility] Medical CenterNqknar58-87-2261 Emergency department Note* Pinky Martinez RN - 11/10/2023 5:46 PM EDT IV placement attempted, unsuccessful at this time. TL made aware. [facility] Medical CenterQedlxk47-06-2496 Physician Emergency department Note* Norberto Rubio MD [...] of Onset Diabetes Father Heart Disease Father [place] Hypertension Father Cancer Father Prostate No Known [...] CAUDAL EPIDURAL BLOCK 09/02/2017 ECHO Historical 1987 [facility]- ? Why -Results Good EPIDURAL LUMBAR TRANSFORMINAL Left 03/25/2017 L3-L4 LAMINECTOMY DECOMPRESSION POSTERIOR 3 LEVEL N/A 10/22/2017 LAMINECTOMY DECOMPRESSION POSTERIOR 3 LEVEL performed by Adolfo Edwards MD at [facility] MA[facility] OR LIG/TRNSXJ FLP TUBE ABDL/VAG APPR UNI/BI Ligation or Transection of Fallopian Tubes, Unilat or Bilat LUMBAR TRANSFORAMINAL EPIDURAL 04/29/2017 L4-L5 Other Surgical History Left 01/24/2015 Left Foot Metatarsal Head Bone Biopsy per Dr Ann Vasquez @ [facility] Other Surgical History Right 10/17/2015 Irigation W/Sharp Excisional Debridement Right Foot. 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 Lo[place]iza [place] [facility] [place] Surgical History 2009 Fractured Hip REMOVAL GALLBLADDER ~1970 [facility] WOUND VAC APPLICATION/CHANGE N/A 10/22/2017 WOUND VAC APPLICATION/CHANGE performed by Adolfo Edwards MD at [facility] MA[facility] OR CURRENT MEDICATIONS: Current Facility-Administered Medications: [...] FINAL IMPRESSION: 1 --right lower extremity cellulitis Regional Medical [id number] Emergency department Note* Arelis Rodriguez RN - 11/10/2023 4:38 PM EDT Pt son is in from out of town. He states pt has a history of cellulitis in her R leg. He states shehas been less sharp and less steady and didn't want to leave before she was checked out to make sure she is ok. Pt A&O x4 and ambulatory in triage. [facility] Medical CenterYmsvgx58-98-5408 Hospital Discharge instructions* Discharge Instructions * Trini Boyce RN - 10/30/2023 3:53 PM EDT You have been treated at [facility] for reasons of wound healing. WOUND CARE: [...] If any of the following occur, contact [phone] immediately or go to your nearest emergency [...] your scheduled appointment, occasionally patients admitted to [facility] need priority care. In that case we [...] have any questions, please call us at [phone] documented in this encounterRegional Medical CenterEtplli36-63-2067 History of Present illness Narrative* Estiven Mcfadden DPM - 10/17/2023 1:30 PM EST [facility] 10/17/2023 Patient Name: Hanna [...] the appropriate size sent back to her facilities director office Assessment/Dermatologic Exam/Plan Assessment -Right lower extremity [...] for the 10/17/23 encounter (Hospital Encounter) with [facility] 1. Allergies Allergen Reactions [...] - 99 MG/DL Final Comment: (NOTE) The [place] [employer] recommends the following guidelines: MG/DL [...] - 6.0 % Final Comment: (NOTE) The [place] [employer] recommends the following Guidelines: 5.7-6.4% Indicates increased risk for diabetes (Prediabetes). >6.5% Diagnostic of diabetes. In the absence of unequivocal hyperglycemia, results should be confirmed by repeat test. <7% Glycemic recommendation for non adults with diabetes. [place] [employer], Standards of Medical Care in [...] Foot and Ankle Surgery documented in this encounterRegional Medical CenterDumkvm19-08-6170 Miscellaneous Notes* Care Plan - Trini Boyce RN - 10/17/2023 1:30 PM EST Progressing. documented in this encounterRegional Medical CenterPuxpnh62-32-3701 Note* Care Plan - Trini Boyce RN - 10/17/2023 1:30 PM EST Progressing. Regional Medical CenterXvvqae96-49-5248 Hospital Discharge instructions* Discharge Instructions * Trini Boyce RN - 10/17/2023 9:22 AM EST You have been treated at [facility] for reasons of wound healing. WOUND CARE: [...] If any of the following occur, contact [phone] immediately or go to your nearest emergency [...] have any questions, please call us at [phone] documented in this encounterRegional Medical CenterWbremv17-36-5382 NotePhysical Therapy Evaluation (only) Physical Therapy Visit [facility] [address] [place] [address] PATIENT INFORMATION Patient Name: Hanna Nelson : [...] ADLs, no AD Current level of function: 3: uses cane in the community, difficulty with [...] application/change (N/A, 10/22/2017). Comorbidities: Arthritis, Cardiac - LA, CABG, CHF, Diabetes, and Hypertension Personal Factors: [...] hands Functional Tests TU.55 sec 30 sec trl-[id number]: 3 reps Treatment: Evaluation; Skilled Care per [...] 7 8 Pain Rating 11/19 / / Progress Report SAQs 2 lbs [...] Pt able to si (more content not included)...[facility]02-22-2024 Hospital Discharge instructions* Discharge Instructions* Trini Boyce RN - 10/03/2023 1:50 PM EST You have been treated at [facility] for reasons of wound healing. WOUND CARE: [...] If any of the following occur, contact [phone] immediately or go to your nearest emergency [...] your scheduled appointment, occasionally patients admitted to [facility] need priority care. In that case we [...] have any questions, please call us at [phone] documented in this encounterRegional Medical CenterReuojd27-63-8870 History of Present illness Narrative* Estiven Mcfadden DPM - 10/03/2023 1:30 PM EST [facility] 10/03/2023 Patient Name: Hanna [...] taking for the 10/03/23 encounter (Hospital Encounter)with [facility] 4. Allergies Allergen Reactions [...] - 99 MG/DL Final Comment: (NOTE) The [place] [employer] recommends the following guidelines: MG/DL [...] - 6.0 % Final Comment: (NOTE) The [place] [employer] recommends the following Guidelines: 5.7-6.4% Indicates increased risk for diabetes (Prediabetes). >6.5% Diagnostic of diabetes. In the absence of unequivocal hyperglycemia, results should be confirmed by repeat test. <7% Glycemic recommendation for non adults with diabetes. [place] [employer], Standards of Medical Care in [...] Foot and Ankle Surgery documented in this encounterRegional Medical CenterKkukbc16-50-2719 Miscellaneous Notes* Care Plan - Trini Boyce RN - 10/03/2023 1:30 PM EST Progressing. Pt states she did not receive supplies from [employer]. Phoned [employer] company who verified supplies had been shipped. Pt will look again when she gets home. documented in this encounterRegional Medical CenterYkopvl79-94-4070 Note* Care Plan - Trini Boyce RN - 10/03/2023 1:30 PM EST Progressing. Pt states she did not receive supplies from [employer]. Phoned [employer] company who verified supplies had been shipped. Pt will look again when she gets home. Regional Medical CenterAplrtx09-58-6960 NoteProgressing. Pt states she did not receive supplies from [employer]. Phoned [employer] company who verified supplies had been shipped. Pt will look again when she gets home.[facility]02-08-2024 History of Present illness Narrative* Estiven Mcfadden DPM - 09/19/2023 1:30 PM EST [facility] 09/19/2023 Patient Name: Hanna [...] for the 09/19/23 encounter (Hospital Encounter) with [facility] 1. Allergies Allergen Reactions [...] - 99 MG/DL Final Comment: (NOTE) The [place] [employer] recommends the following guidelines: MG/DL [...] - 6.0 % Final Comment: (NOTE) The [place] [employer] recommends the following Guidelines: 5.7-6.4% Indicates increased risk for diabetes (Prediabetes). >6.5% Diagnostic of diabetes. In the absence of unequivocal hyperglycemia, results should be confirmed by repeat test. <7% Glycemic recommendation for non adults with diabetes. [place] [employer], Standards of Medical Care in [...] Foot and Ankle Surgery documented in this encounterRegional Medical CenterAqszsl05-33-7602 Miscellaneous Notes* Care Plan - Trini Boyce RN - 09/19/2023 1:30 PM EST Progressing. Supplies ordered through [employer]. documented in this encounterRegional Medical CenterYuqpge47-36-0256 Note* Care Plan - Trini Boyce RN - 09/19/2023 1:30 PM EST Progressing. Supplies ordered through [employer]. Regional Medical CenterCnqyos49-56-0107 NoteProgressing. Supplies ordered through [employer].[facility]02-08-2024 Hospital Discharge instructions* Discharge Instructions* Trini Boyce RN - 09/19/2023 12:43 PM EST You have been treated at [facility] for reasons of wound healing. WOUND CARE: [...] If any of the following occur, contact [phone] immediately or go to your nearest emergency [...] your scheduled appointment, [facility]. In that case we [...] have any questions, please call us at [phone] documented in this encounterRegional Medical CenterHrltnk96-04-8289 History of Present illness Narrative* Estiven Mcfadden DPM - 09/05/2023 1:30 PM EST [facility] 09/05/2023 Patient Name: Hanna [...] taking for the 09/05/23 encounter (Hospital Encounter)with [facility] 1. Allergies Allergen Reactions [...] - 99 MG/DL Final Comment: (NOTE) The [place] [employer] recommends the following guidelines: MG/DL [...] - 6.0 % Final Comment: (NOTE) The [place] [employer] recommends the following Guidelines: 5.7-6.4% Indicates increased risk for diabetes (Prediabetes). >6.5% Diagnostic of diabetes. In the absence of unequivocal hyperglycemia, results should be confirmed by repeat test. <7% Glycemic recommendation for non adults with diabetes. [place] [employer], Standards of Medical Care in [...] Foot and Ankle Surgery documented in this encounterRegional Medical CenterKinjlr83-34-5728 Hospital Discharge instructions* Discharge Instructions* Trini Boyce RN - 09/02/2023 11:11 AM EST You have been treated at [facility] for reasons of wound healing. 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 No changes from previous. She has heard back from her facilities director office and they have officially started process [...] callus buildup -She reached out to her facilities director and they have started process for diabetic [...] taking for the 08/22/23 encounter (Hospital Encounter)with [facility] 1. Allergies Allergen Reactions [...] - 99 MG/DL Final Comment: (NOTE) The [place] [employer] recommends the following guidelines: MG/DL [...] - 6.0 % Final Comment: (NOTE) The [place] [employer] recommends the following Guidelines: 5.7-6.4% Indicates increased risk for diabetes (Prediabetes). >6.5% Diagnostic of diabetes. In the absence of unequivocal hyperglycemia, results should be confirmed by repeat test. <7% Glycemic recommendation for non adults with diabetes. [place] [employer], Standards of Medical Care in [...] Foot and Ankle Surgery documented in this encounterRegional Medical CenterWgaudu18-33-6543 Miscellaneous Notes* Care Plan - Trini Boyce RN - 08/22/2023 1:30 PM EST Progressing. documented in this encounterRegional Medical CenterVtarrx62-80-2327 Note* Care Plan - Trini Boyce RN - 08/22/2023 1:30 PM EST Progressing. Regional Medical CenterFftgrp28-94-7901 Hospital Discharge instructions* Discharge Instructions * Trini Boyce RN - 08/19/2023 10:21 AM EST You have been treated at [facility] for reasons of wound healing. WOUND CARE: [...] If any of the following occur, contact [phone] immediately or go to your nearest emergency [...] your scheduled appointment, occasionally patients admitted to [facility] need priority care. In that case we [...] have any questions, please call us at [phone] documented in this encounterRegional Medical CenterCyadum23-52-9584 History of Present illness Narrative* Estiven Mcfadden DPM - 08/01/2023 1:30 PM EST [facility] 08/01/2023 Patient Name: Hanna Nelson : 1940 AGE: [age] year old GENDER: Female Chief Complaint/Reason for Visit Hanna Nelson is a 81 year old female who presents today for wound care of chronic wound on the bottom of the right foot. No changes from previous. Still has not heard back from her facilities director about when her modified diabetic shoes will [...] callus buildup -Still waiting to hear from facilities director about new diabetic inserts and shoes and [...] for the 08/01/23 encounter (Hospital Encounter) with [facility] 1. Allergies Allergen Reactions [...] - 99 MG/DL Final Comment: (NOTE) The [place] [employer] recommends the following guidelines: MG/DL [...] - 6.0 % Final Comment: (NOTE) The [place] [employer] recommends the following Guidelines: 5.7-6.4% Indicates increased risk for diabetes (Prediabetes). >6.5% Diagnostic of diabetes. In the absence of unequivocal hyperglycemia, results should be confirmed by repeat test. <7% Glycemic recommendation for non adults with diabetes. [place] [employer], Standards of Medical Care in [...] Foot and Ankle Surgery documented in this encounterRegional Medical CenterQvsuss85-82-1407 Miscellaneous Notes* Care Plan - Trini Boyce RN - 08/01/2023 1:30 PM EST No noted progression. Pt request to come back in 3 weeks due to holidays. documented in this encounterRegional Medical CenterPqxndp42-64-7145 Note* Care Plan - Trini Boyce RN - 08/01/2023 1:30 PM EST No noted progression. Pt request to come back in 3 weeks due to holidays. [facility] Gonelk96-73-5470 NoteNo noted progression. Pt request to come back in 3 weeks due to holidays.[facility]12-[facility]-2023 Hospital Discharge instructions* Discharge Instructions* Trini Boyce RN - 08/01/2023 12:43 PM EST You have been treated at [facility] for reasons of wound healing. WOUND CARE: [...] If any of the following occur, contact [phone] immediately or go to your nearest emergency [...] your scheduled appointment, occasionally patients admitted to [facility] need priority care. 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 No changes from previous. Still has not heard back from her facilities director about when her modified diabetic shoes will [...] callus buildup -Still waiting to hear from facilities director about new diabetic inserts and shoes and [...] for the 07/25/23 encounter (Hospital Encounter) with [facility] 1. Allergies Allergen Reactions [...] - 99 MG/DL Final Comment: (NOTE) The [place] [employer] recommends the following guidelines: MG/DL [...] - 6.0 % Final Comment: (NOTE) The [place] [employer] recommends the following Guidelines: 5.7-6.4% Indicates increased risk for diabetes (Prediabetes). >6.5% Diagnostic of diabetes. In the absence of unequivocal hyperglycemia, results should be confirmed by repeat test. <7% Glycemic recommendation for non adults with diabetes. [place] [employer], Standards of Medical Care in [...] Foot and Ankle Surgery documented in this encounterRegional Medical CenterQizztd84-97-3540 Miscellaneous Notes* Care Plan - Trini Boyce RN - 07/25/2023 1:30 PM EST Progressing. documented in this encounterRegional Medical CenterGqbdbc29-85-1072 Note* Care Plan - Trini Boyce RN - 07/25/2023 1:30 PM EST Progressing. Regional Medical CenterWvqmwa42-02-8232 Hospital Discharge instructions* Discharge Instructions * Trini Boyce RN - 07/24/2023 3:26 PM EST You have been treated at [facility] for reasons of wound healing. WOUND CARE: [...] If any of the following occur, contact [phone] immediately or go to your nearest emergency [...] have any questions, please call us at [phone] documented in this encounterRegional Medical CenterFbyjhy43-10-3734 History of Present illness Narrative* Estiven Mcfadden DPM - 07/11/2023 1:30 PM EST [facility] 07/11/2023 Patient Name: Hanna Nelson : 1940 AGE: [age] year old GENDER: Female Chief Complaint/Reason for Visit Hanna Nelson is a 81 year old female who presents today for wound care of chronic wound on the bottom of the right foot. No changes from previous. Still waiting to hear back from her facilities director about when her diabetic shoes will be [...] peg assist offloading insert. Patient says her facilities director modify this little bit as well -Still waiting to hear back from her facilities director when her diabetic shoes will be ready [...] for the 07/11/23 encounter (Hospital Encounter) with [facility] 1. Allergies Allergen Reactions [...] - 99 MG/DL Final Comment: (NOTE) The [place] [employer] recommends the following guidelines: MG/DL [...] - 6.0 % Final Comment: (NOTE) The [place] [employer] recommends the following Guidelines: 5.7-6.4% Indicates increased risk for diabetes (Prediabetes). >6.5% Diagnostic of diabetes. In the absence of unequivocal hyperglycemia, results should be confirmed by repeat test. <7% Glycemic recommendation for non adults with diabetes. [place] [employer], Standards of Medical Care in [...] Foot and Ankle Surgery documented in this encounterRegional Medical CenterZlkker80-09-4056 Miscellaneous Notes* Care Plan - Trini Boyce RN - 07/11/2023 1:30 PM EST Progressing. documented in this encounterRegional Medical CenterQzngff31-49-1038 Note* Care Plan - Trini Boyce RN - 07/11/2023 1:30 PM EST Progressing. Regional Medical CenterVkadot08-98-3507 Hospital Discharge instructions* Discharge Instructions * Katey Herrera RN - 07/10/2023 9:20 AM EST You have been treated at [facility] for reasons of wound healing. WOUND CARE: [...] If any of the following occur, contact [phone] immediately or go to your nearest emergency [...] your scheduled appointment, occasionally patients admitted to [facility] need priority care. In that case we [...] have any questions, please call us at [phone] documented in this encounterRegional Medical CenterNakubn81-64-9186 History of Present illness Narrative* Estiven Mcfadden DPM - 06/20/2023 1:30 PM EST [facility] 06/20/2023 Patient Name: Hanna [...] peg assist offloading insert. Patient says her facilities director modify this little bit as well -Still [...] 1343 Secondary Dressing Foam Dressing-Silicone Boarder 06/20/23 1343 Pressure Ulcer Data:. Objective Vitals Signs: Visit [...] taking for the 06/20/23 encounter (Hospital Encounter)with [facility] 1. Allergies Allergen Reactions [...] - 99 MG/DL Final Comment: (NOTE) The [place] [employer] recommends the following guidelines: MG/DL [...] - 6.0 % Final Comment: (NOTE) The [place] [employer] recommends the following Guidelines: 5.7-6.4% Indicates increased risk for diabetes (Prediabetes). >6.5% Diagnostic of diabetes. In the absence of unequivocal hyperglycemia, results should be confirmed by repeat test. <7% Glycemic recommendation for non adults with diabetes. [place] [employer], Standards of Medical Care in [...] Foot and Ankle Surgery documented in this encounterRegional Medical CenterAqeohy96-66-7831 Miscellaneous Notes* Care Plan - Trini Boyce RN - 06/20/2023 1:30 PM EST Progressing. Collagen powder ordered through [employer]. documented in this encounterRegional Medical CenterZsgzus68-27-5013 Note* Care Plan - Trini Boyce RN - 06/20/2023 1:30 PM EST Progressing. Collagen powder ordered through [employer]. Regional Medical CenterBkwsac96-36-9971 NoteProgressing. Collagen powder ordered through [employer]. [facility]11-08-2023 Hospital Discharge instructions* Discharge Instructions* Trini Boyce RN - 06/19/2023 2:26 PM EST You have been treated at [facility] for reasons of wound healing. WOUND CARE: [...] If any of the following occur, contact [phone] immediately or go to your nearest emergency [...] your scheduled appointment, occasionally patients admitted to [facility] need priority care. In that case we [...] have any questions, please call us at [phone] documented in this encounterRegional Medical CenterLkerzv20-28-4241 History of Present illness Narrative* Estiven Mcfadden DPM - 06/06/2023 1:30 PM EDT [facility] 06/06/2023 Patient Name: Hanna [...] able to get her new diabetic shoes. Animal Pathologist said it could take some time for [...] peg assist offloading insert. Patient says her facilities director modify this little bit as well -Still [...] for the 06/06/23 encounter (Hospital Encounter) with [facility] 2. Allergies Allergen Reactions [...] - 99 MG/DL Final Comment: (NOTE) The [place] [employer] recommends the following guidelines: MG/DL [...] - 6.0 % Final Comment: (NOTE) The [place] [employer] recommends the following Guidelines: 5.7-6.4% Indicates increased risk for diabetes (Prediabetes). >6.5% Diagnostic of diabetes. In the absence of unequivocal hyperglycemia, results should be confirmed by repeat test. <7% Glycemic recommendation for non adults with diabetes. [place] [employer], Standards of Medical Care in [...] Foot and Ankle Surgery documented in this encounterRegional Medical CenterCgcggp26-51-4446 Miscellaneous Notes* Care Plan - Trini Boyce RN - 06/06/2023 1:30 PM EDT Progressing. documented in this encounterRegional Medical CenterXdlxpj39-82-3622 Note* Care Plan - Trini Boyce RN - 06/06/2023 1:30 PM EDT Progressing. Regional Medical CenterWgijzt56-68-1845 Hospital Discharge instructions* Discharge Instructions * Trini Boyce RN - 06/06/2023 9:22 AM EDT You have been treated at [facility] for reasons of wound healing. WOUND CARE: [...] If any of the following occur, contact [phone] immediately or go to your nearest emergency [...] your scheduled appointment, occasionally patients admitted to [facility] need priority care. In that case we [...] have any questions, please call us at [phone] documented in this encounterRegional Medical CenterMznweq08-03-1606 History of Present illness Narrative* Estiven Mcfadden DPM - 05/23/2023 1:30 PM EDT [facility] 05/23/2023 Patient Name: Hanna Nelson : 1940 AGE: [age] year old GENDER: Female Chief Complaint/Reason for Visit Hanna Nelson is a 81 year old female who presents today for wound care of chronic wound on the bottom of the right foot. No changes from previous. She is seeing her facilities director today. She talked to her and said [...] for the 05/23/23 encounter (Hospital Encounter) with [facility] 1. Allergies Allergen Reactions [...] - 99 MG/DL Final Comment: (NOTE) The [place] [employer] recommends the following guidelines: MG/DL [...] - 6.0 % Final Comment: (NOTE) The [place] [employer] recommends the following Guidelines: 5.7-6.4% Indicates increased risk for diabetes (Prediabetes). >6.5% Diagnostic of diabetes. In the absence of unequivocal hyperglycemia, results should be confirmed by repeat test. <7% Glycemic recommendation for non adults with diabetes. [place] [employer], Standards of Medical Care in [...] Foot and Ankle Surgery documented in this encounterRegional Medical CenterPyjnrj55-47-6019 Miscellaneous Notes* Care Plan - Trini Boyce RN - 05/23/2023 1:30 PM EDT Progressing. documented in this encounterRegional Medical CenterWtnqnj99-56-1672 Note* Care Plan - Trini Boyce RN - 05/23/2023 1:30 PM EDT Progressing. Regional Medical CenterLmelqq60-06-3940 Hospital Discharge instructions* Discharge Instructions * Trini Boyce RN - 05/22/2023 3:53 PM EDT You have been treated at [facility] for reasons of wound healing. WOUND CARE: [...] If any of the following occur, contact [phone] immediately or go to your nearest emergency [...] your scheduled appointment, occasionally patients admitted to [facility] need priority care. In that case we [...] have any questions, please call us at [phone] documented in this encounterRegional Medical CenterPhekgh39-54-2082 History of Present illness Narrative* Estiven Mcfadden DPM - 05/06/2023 1:30 PM EDT [facility] 05/06/2023 Patient Name: Hanna [...] taking for the 05/06/23 encounter (Hospital Encounter)with [facility] 1. Allergies Allergen Reactions [...] - 99 MG/DL Final Comment: (NOTE) The [place] [employer] recommends the following guidelines: MG/DL [...] - 6.0 % Final Comment: (NOTE) The [place] [employer] recommends the following Guidelines: 5.7-6.4% Indicates increased risk for diabetes (Prediabetes). >6.5% Diagnostic of diabetes. In the absence of unequivocal hyperglycemia, results should be confirmed by repeat test. <7% Glycemic recommendation for non adults with diabetes. [place] [employer], Standards of Medical Care in [...] Foot and Ankle Surgery documented in this encounterRegional Medical CenterXixzek46-53-3197 Miscellaneous Notes* Care Plan - Trini Boyce RN - 05/06/2023 1:30 PM EDT Progressing. documented in this encounterRegional Medical CenterLkzqir77-75-6243 Note* Care Plan - Trini Boyce RN - 05/06/2023 1:30 PM EDT Progressing. Regional Medical CenterUgsqyv38-60-9625 Hospital Discharge instructions* Discharge Instructions * Trini Boyce RN - 05/06/2023 10:12 AM EDT You have been treated at [facility] for reasons of wound healing. WOUND CARE: [...] with additional C-felt padding whenever walking. Call facilities director to have diabetic shoes reevaluated. Obtain Xray of right foot. Return: May 23, 2023 SPECIAL INSTRUCTIONS: Nutrition: Increase dietary protein intake as instructed. Foot Wear: Follow specialty footwear instructions as advised. Off loading/Pressure Reduce: PRECAUTIONS: If any of the following occur, contact [phone] immediately or go to your nearest emergency [...] your scheduled appointment, occasionally patients admitted to [facility] need priority care. In that case we [...] have any questions, please call us at [phone] documented in this encounterRegional Medical CenterVvgjdr18-37-6232 History of Present illness Narrative* Estiven Mcfadden DPM - 04/18/2023 1:15 PM EDT [facility] 04/18/2023 Patient Name: Hanna [...] visit ongoing send her back to her facilities director at that time for further more formal [...] with drainage 04/18/23 1300 Wound Bed Appearance [place] 04/04/23 1300 Drainage Amount Moderate 04/18/23 1300 [...] for the 04/18/23 encounter (Hospital Encounter) with [facility] 4. Allergies Allergen Reactions [...] - 99 MG/DL Final Comment: (NOTE) The [place] [employer] recommends the following guidelines: MG/DL [...] - 6.0 % Final Comment: (NOTE) The [place] [employer] recommends the following Guidelines: 5.7-6.4% Indicates increased risk for diabetes (Prediabetes). >6.5% Diagnostic of diabetes. In the absence of unequivocal hyperglycemia, results should be confirmed by repeat test. <7% Glycemic recommendation for non adults with diabetes. [place] [employer], Standards of Medical Care in [...] Foot and Ankle Surgery documented in this encounterRegional Medical CenterZwywsj37-29-5011 Miscellaneous Notes* Care Plan - Trini Boyce RN - 04/18/2023 1:15 PM EDT Progressing. documented in this encounterRegional Medical CenterPqmlrv16-56-6325 Note* Care Plan - Trini Boyce RN - 04/18/2023 1:15 PM EDT Progressing. Regional Medical CenterFzzgqp01-73-6101 Hospital Discharge instructions* Discharge Instructions * Trini Boyce RN - 04/17/2023 3:42 PM EDT You have been treated at [facility] for reasons of wound healing. WOUND CARE: [...] If any of the following occur, contact [phone] immediately or go to your nearest emergency [...] your scheduled appointment, occasionally patients admitted to [facility] need priority care. In that case we [...] have any questions, please call us at [phone] documented in this encounterRegional Medical CenterZxbuby60-19-5891 History of Present illness Narrative* Estiven Mcfadden DPM - 04/04/2023 1:45 PM EDT [facility] 04/04/2023 Patient Name: Hanna [...] we will send her back to her facilities director office for more formal modifications for offloading [...] with drainage 04/04/23 1300 Wound Bed Appearance [place] 04/04/23 1300 Drainage Amount Small 04/04/23 1300 [...] taking for the 04/04/23 encounter (Hospital Encounter)with [facility] 3. Allergies Allergen Reactions [...] - 99 MG/DL Final Comment: (NOTE) The [place] [employer] recommends the following guidelines: MG/DL [...] - 6.0 % Final Comment: (NOTE) The [place] [employer] recommends the following Guidelines: 5.7-6.4% Indicates increased risk for diabetes (Prediabetes). >6.5% Diagnostic of diabetes. In the absence of unequivocal hyperglycemia, results should be confirmed by repeat test. <7% Glycemic recommendation for non adults with diabetes. [place] [employer], Standards of Medical Care in [...] Foot and Ankle Surgery documented in this encounterRegional Medical CenterDsbobq26-05-8539 Miscellaneous Notes* Care Plan - Trini Boyce RN - 04/04/2023 1:45 PM EDT Progressing. documented in this encounterRegional Medical CenterHfbnaa22-73-9299 Note* Care Plan - Trini Boyce RN - 04/04/2023 1:45 PM EDT Progressing. [facility] CenterHmtcfl54-24-9404 Nurse Note* Trini Boyce RN - 04/04/2023 1:45 PM EDT [place] [id number] ~ Physician Orders Patient Name: Hanna Nelson Start Date: 04/04/2023 Order: [facility] for Wound Care 1. Clean wound(s) with: normal saline 2. Apply to wound(s): Primary: collagen :Ssecondary - silver alginate 3. Secure dressing with: Optifoam Gentle SA 4x4 border foam 4. Change:3/wk 5. Call with any questions or concerns, thank you! Return in 1 week Physician NPI and Signature: Dr. Estiven Mcfadden, VIPUL NPI# [id number] Home Health Care/ECF: [facility] CenterEncplj70-06-8849 Nurse Note* Trini Boyce RN - 04/04/2023 1:45 PM EDT [facility] [address] [place] [address] ~ Physician Orders Patient Name: Hanna Nelson Start Date: 04/04/2023 Order: Halfway for Wound Care 1. Clean wound(s) with: normal saline 2. Apply to wound(s): Primary: collagen :Ssecondary - silver alginate 3. Secure dressing with: Optifoam Gentle SA 4x4 border foam 4. Change:3/wk 5. Call with any questions or concerns, thank you! Return in 1 week Physician NPI and Signature: Dr. Estiven Mcfadden, DPM NPI# [id number] Home Health Care/ECF: documented in this encounterRegional Medical CenterGhmbch34-65-3276 Hospital Discharge instructions* Discharge Instructions* Trini Boyce RN - 04/03/2023 2:03 PM EDT You have been treated at [facility] for reasons of wound healing. WOUND CARE: [...] If any of the following occur, contact [phone] immediately or go to your nearest emergency [...] your scheduled appointment, occasionally patients admitted to [facility] need priority care. In that case we [...] have any questions, please call us at [phone] documented in this encounterRegional Medical CenterRebfoj75-68-6903 History of Present illness Narrative* Estiven Mcfadden DPM - 03/21/2023 1:45 PM EDT [facility] 03/21/2023 Patient Name: Hanna [...] will need to go back to her facilities director office who madethe original insert and have [...] 1300 Wound length (cm) 0.4 cm 03/21/23 135 Wound width (cm) 0.4 cm 03/21/23 135 Wound depth (cm) 0.15 cm 03/21/23 135 Wound Surface Area (length x width) 0.16 03/21/23 1356 Undermining / Tunneling No 03/07/23 1300 Periwound (surrounding) tissue Calloused 03/21/23 1300 Primary Dressing Collagens;Alginate 03/21/23 135 Secondary Dressing Foam Dressing-Silicone Boarder 03/21/23 1356 [...] 03/21/23 1300 Primary Dressing Band aids 03/21/23 1356 [...] taking for the 03/21/23 encounter (Hospital Encounter)with [facility] 3. Allergies Allergen Reactions [...] - 99 MG/DL Final Comment: (NOTE) The [place] [employer] recommends the following guidelines: MG/DL [...] - 6.0 % Final Comment: (NOTE) The [place] [employer] recommends the following Guidelines: 5.7-6.4% Indicates increased risk for diabetes (Prediabetes). >6.5% Diagnostic of diabetes. In the absence of unequivocal hyperglycemia, results should be confirmed by repeat test. <7% Glycemic recommendation for non adults with diabetes. [place] [employer], Standards of Medical Care in [...] Foot and Ankle Surgery documented in this encounterRegional Medical CenterIlyogi07-04-9017 Miscellaneous Notes* Care Plan - Trini Boyce RN - 03/21/2023 1:45 PM EDT Progressing. Continue current POC. documented in this encounterRegional Medical CenterWhehfb51-33-9600 Note* Care Plan - Trini Boyce RN - 03/21/2023 1:45 PM EDT Progressing. Continue current POC. [facility] Medical CenterAnqcbq96-71-0358 Hospital Discharge instructions* Discharge Instructions * Trini Boyce RN - 03/20/2023 9:43 AM EDT You have been treated at [facility] for reasons of wound healing. WOUND CARE: [...] If any of the following occur, contact [phone] immediately or go to your nearest emergency [...] your scheduled appointment, occasionally patients admitted to [facility] need priority care. In that case we [...] have any questions, please call us at [phone] documented in this encounterRegional Medical CenterSuqbny59-03-2144 Hospital Discharge instructions* Discharge Instructions* Trini Boyce RN - 03/07/2023 1:54 PM EDT You have been treated at [facility] for reasons of wound healing. WOUND CARE: [...] If any of the following occur, contact [phone] immediately or go to your nearest emergency [...] your scheduled appointment, occasionally patients admitted to [facility] need priority care. In that case we [...] have any questions, please call us at [phone] documented in this encounterRegional Medical CenterOpdhhl34-64-6367 History of Present illness Narrative* Estiven Mcfadden DPM - 03/07/2023 1:45 PM EDT [facility] 03/07/2023 Patient Name: Hanna [...] 1354 Wound width (cm) 0.5 cm 03/07/23 1354 Wound depth (cm) 0.15 cm 03/07/23 1354 Wound Surface Area (length x width) 0.2 03/07/23 1354 Undermining / Tunneling No 03/07/23 1300 Periwound (surrounding) tissue Calloused 03/07/23 1300 Primary Dressing Collagens;Alginate 03/07/23 1354 Secondary Dressing Other (Comment);Foam Dressing-Silicone Boarder 03/07/23 [...] taking for the 03/07/23 encounter (Hospital Encounter)with [facility] 3. Allergies Allergen Reactions [...] - 99 MG/DL Final Comment: (NOTE) The [place] [employer] recommends the following guidelines: MG/DL [...] - 6.0 % Final Comment: (NOTE) The [place] [employer] recommends the following Guidelines: 5.7-6.4% Indicates increased risk for diabetes (Prediabetes). >6.5% Diagnostic of diabetes. In the absence of unequivocal hyperglycemia, results should be confirmed by repeat test. <7% Glycemic recommendation for non adults with diabetes. [place] [employer], Standards of Medical Care in [...] Foot and Ankle Surgery documented in this encounterRegional Medical CenterQtqeiw93-51-0806 History of Present illness Narrative* Estiven Mcfadden DPM - 02/01/2022 3:00 PM EDT [facility] 02/01/2022 Patient Name: Hanna Nelson [...] taking for the 02/01/22 encounter (Hospital Encounter)with [facility] 1. Allergies Allergen Reactions [...] - 99 MG/DL Final Comment: (NOTE) The [place] [employer] recommends the following guidelines: MG/DL [...] - 6.0 % Final Comment: (NOTE) The [place] [employer] recommends the following Guidelines: 5.7-6.4% Indicates increased risk for diabetes (Prediabetes). >6.5% Diagnostic of diabetes. In the absence of unequivocal hyperglycemia, results should be confirmed by repeat test. <7% Glycemic recommendation for non adults with diabetes. [place] [employer], Standards of Medical Care in [...] Foot and Ankle Surgery documented in this encounterRegional Medical CenterXwxsbb85-33-8274 Hospital Discharge instructions* Discharge Instructions* Trini Boyce RN - 02/01/2022 10:41 AM EDT CONGRATULATIONS, YOUR WOUND IS HEALED! 1. Check your skin daily for reddened areas, abrasions, or sores. If a new wound is noted call, please call the wound clinic at [phone] for an appointment. 2. Clean and dry [...] If any of the following occur, contact [phone] immediately or go to your nearest emergency [...] your scheduled appointment, occasionally patients admitted to [facility] need priority care. In that case we [...] have any questions, please call us at [phone] documented in this encounterRegional Medical CenterEscvmf31-94-8638 History of Present illness Narrative* Estiven Mcfadden DPM - 01/11/2022 3:00 PM EDT [facility] 01/11/2022 Patient Name: Hanna Nelson : 1940 AGE: [age] year old GENDER: Female Chief Complaint/Reason for Visit Hanna Nelson is a 81 year old female who presents today for wound care of chronic wound on the bottom of the right foot. Says that the wound is doing well overall. Still in process of getting diabetic shoes from outside facilities director. Assessment/Dermatologic Exam/Plan Assessment -Right lower extremity ulceration [...] peg assist -Continue to follow-up with outpatient facilities director to obtain custom diabetic shoes to offload [...] with drainage 01/11/22 1400 Wound Bed Appearance [place] 01/11/22 1400 Drainage Amount Moderate 01/11/22 1400 [...] for the 01/11/22 encounter (Hospital Encounter) with [facility] 1. Allergies Allergen Reactions [...] - 99 MG/DL Final Comment: (NOTE) The [place] [employer] recommends the following guidelines: MG/DL [...] - 6.0 % Final Comment: (NOTE) The [place] [employer] recommends the following Guidelines: 5.7-6.4% Indicates increased risk for diabetes (Prediabetes). >6.5% Diagnostic of diabetes. In the absence of unequivocal hyperglycemia, results should be confirmed by repeat test. <7% Glycemic recommendation for non adults with diabetes. [place] [employer], Standards of Medical Care in [...] Foot and Ankle Surgery documented in this encounterRegional Medical CenterWfdmey54-36-5406 Hospital Discharge instructions* Discharge Instructions* Trini Boyce RN - 01/11/2022 8:55 AM EDT You have been treated at [facility] for reasons of wound healing. WOUND CARE: [...] If any of the following occur, contact [phone] immediately or go to your nearest emergency [...] your scheduled appointment, occasionally patients [facility] to [facility]. In that case we [...] have any questions, please call us at [phone] documented in this encounterRegional Medical CenterRidybm94-78-8895 History of Present illness Narrative* Estiven Mcfadden DPM - 12/28/2021 3:00 PM EDT [facility] 12/28/2021 Patient Name: Hanna [...] process of getting diabetic shoes from outside facilities director. Assessment/Dermatologic Exam/Plan Assessment -Right lower extremity ulceration down to subcutaneous tissue -Type 2 diabetes mellitus with peripheral neuropathy Plan -Patient was seen, evaluated, and treated today. -No signs of infection. Monitor off antibiotics. -Wound subfirst metatarsal much improved today from previous assessment. -Collagen and dry dressing to the area 3 times a week -Offloading shoe with peg assist -Continue to follow-up with outpatient facilities director to obtain custom diabetic shoes to offload [...] with drainage 12/28/21 1400 Wound Bed Appearance [place];Red 12/28/21 1400 Drainage Amount Moderate 12/28/21 1400 [...] taking for the 12/28/21 encounter (Hospital Encounter)with [facility] 4. Allergies Allergen Reactions [...] - 99 MG/DL Final Comment: (NOTE) The [place] [employer] recommends the following guidelines: MG/DL [...] - 6.0 % Final Comment: (NOTE) The [place] [employer] recommends the following Guidelines: 5.7-6.4% Indicates increased risk for diabetes (Prediabetes). >6.5% Diagnostic of diabetes. In the absence of unequivocal hyperglycemia, results should be confirmed by repeat test. <7% Glycemic recommendation for non adults with diabetes. [place] [employer], Standards of Medical Care in [...] Foot and Ankle Surgery documented in this encounterRegional Medical CenterDqkcvg61-79-1166 Hospital Discharge instructions* Discharge Instructions* Trini Boyce RN - 12/27/2021 4:12 PM EDT You have been treated at [facility] for reasons of wound healing. WOUND CARE: [...] If any of the following occur, contact [phone] immediately or go to your nearest emergency [...] your scheduled appointment, occasionally patients [facility] to [facility] need [facility]. In that case we [...] have any questions, please call us at [phone] documented in this encounterRegional Medical CenterRaudap72-73-1817 History of Present illness Narrative* Estiven cMfadden DPM - 12/14/2021 1:00 PM EDT [facility] 12/14/2021 Patient Name: Hanna [...] of getting diabetic shoes from her outpatient facilities director Assessment/Dermatologic Exam/Plan Assessment -Right lower extremity ulceration down to subcutaneous tissue -Type 2 diabetes mellitus with peripheral neuropathy Plan -Patient was seen, evaluated, and treated today. -No signs of infection. Monitor off antibiotics. -Wound subfirst metatarsal it opened back up again today -Collagen and dry dressing to the area 3 times a week -Offloading shoe with peg assist -Continue to follow-up with outpatient facilities director to obtain custom diabetic shoes to offload [...] with drainage 12/14/21 1200 Wound Bed Appearance [place] 12/14/21 1200 Drainage Amount Moderate 12/14/21 1200 [...] for the 12/14/21 encounter (Hospital Encounter) with [facility] 3. Allergies Allergen Reactions [...] - 99 MG/DL Final Comment: (NOTE) The [place] [employer] recommends the following guidelines: MG/DL [...] - 6.0 % Final Comment: (NOTE) The [place] [employer] recommends the following Guidelines: 5.7-6.4% Indicates increased risk for diabetes (Prediabetes). >6.5% Diagnostic of diabetes. In the absence of unequivocal hyperglycemia, results should be confirmed by repeat test. <7% Glycemic recommendation for non adults with diabetes. [place] [employer], Standards of Medical Care in [...] Foot and Ankle Surgery documented in this encounterRegional Medical CenterWyyjmm57-78-0583 Hospital Discharge instructions* Discharge Instructions* Trini Boyce RN - 12/13/2021 2:19 PM EDT You have been treated at [facility] for reasons of wound healing. WOUND CARE: [...] If any of the following occur, contact [phone] immediately or go to your nearest emergency [...] your scheduled appointment, occasionally patients admitted to [facility] need priority care. In that case we [...] have any questions, please call us at [phone] documented in this encounterRegional Medical CenterWmyvsg57-92-5439 History of Present illness Narrative* Bella Pratt APRN - 12/12/2021 11:00 AM EDT [facility] 12/12/2021 Patient Name: Hanna Nelson : 1940 AGE: [age] year old GENDER: Female Chief Complaint/Reason for Visit Hanna Nelson is a 81 year old female who presents today for wound care of chronic wound on the bottom of the right foot. Did get xrays I asked her to get. No new complaints. Process for diabetic shoes has been started by regular facilities director. Patient requested to come in today as Saturday her wound was noted to be significantly larger with erythema to the dorsal aspect of her foot. Her family friend/facilities director started her on Keflex. Todaythe erythema is [...] with drainage 12/12/21 1059 Wound Bed Appearance Red;[place] 12/12/21 1059 Drainage Amount Moderate 12/12/21 1059 [...] with drainage 12/12/21 1059 Wound Bed Appearance Red;[place] 12/12/21 1059 Drainage Amount Moderate 12/12/21 1059 [...] - 99 MG/DL Final Comment: (NOTE) The [place] [employer] recommends the following guidelines: MG/DL [...] - 6.0 % Final Comment: (NOTE) The [place] [employer] recommends the following Guidelines: 5.7-6.4% Indicates increased risk for diabetes (Prediabetes). >6.5% Diagnostic of diabetes. In the absence of unequivocal hyperglycemia, results should be confirmed by repeat test. <7% Glycemic recommendation for non adults with diabetes. [place] [employer], Standards of Medical Care in Diabetes, Volume 40; 2017 documented in this encounterRegional Medical CenterJgfzip88-95-7029 Hospital Discharge instructions* Discharge Instructions* Mercedez Velasquez RN - 12/12/2021 10:50 AM EDT You have been treated at [facility] for reasons of wound healing. WOUND CARE: [...] If any of the following occur, contact [phone] immediately or go to your nearest emergency [...] your scheduled appointment, occasionally patients [facility] to [facility] need priority care. In that case we [...] have any questions, please call us at [phone] documented in this encounterRegional Medical CenterRtgstb05-05-4395 History of Present illness Narrative* Estiven Mcfadden DPM - 11/23/2021 1:00 PM EDT [facility] 11/23/2021 Patient Name: Hanna [...] diabetic shoes has been started by regular facilities director. Assessment/Dermatologic Exam/Plan Assessment -Right lower extremity ulceration [...] - 99 MG/DL Final Comment: (NOTE) The [place] [employer] recommends the following guidelines: MG/DL [...] - 6.0 % Final Comment: (NOTE) The [place] [employer] recommends the following Guidelines: 5.7-6.4% Indicates increased risk for diabetes (Prediabetes). >6.5% Diagnostic of diabetes. In the absence of unequivocal hyperglycemia, results should be confirmed by repeat test. <7% Glycemic recommendation for non adults with diabetes. [place] [employer], Standards of Medical Care in [...] Foot and Ankle Surgery documented in [place] encounterTiffany [place] [id number] Miscellaneous Notes* Care Plan - Trini Boyce RN - 11/23/2021 1:00 PM EDT Progressing documented [place] [address]-14-2022 Note* Care Plan - Trini Boyce RN - 11/23/2021 1:00 PM EDT Progressing [facility] CenterTlvmwd18-32-0314 Hospital Discharge instructions* Discharge Instructions * Trini Boyce RN - 11/23/2021 8:27 AM EDT You have been treated at [facility] for reasons of wound healing. WOUND CARE: [...] Impax diabetic shoe insole Change Dressinx/week HHC: [place] Return: 3 weeks SPECIAL INSTRUCTIONS: Nutrition: Increase dietary protein intake as instructed. Foot Wear: Follow specialty footwear instructions as advised. Off loading/Pressure Reduce: PRECAUTIONS: If any of the following occur, contact [phone] immediately or go to your nearest emergency [...] have any questions, please call us at [phone] documented in this encounterRegional Medical CenterBuscjr66-82-1849 History of Present illness Narrative* Estiven Mcfadden DPM - 11/09/2021 1:00 PM EDT [facility] 11/09/2021 Patient Name: Hanna [...] with current diabetic shoes that she has. [place] offloading was placed in her shoes by myself today. -Says that her regular facilities director is in the process of getting her [...] taking for the 11/09/21 encounter (Hospital Encounter)with [facility] 3. Allergies Allergen Reactions [...] - 99 MG/DL Final Comment: (NOTE) The [place] [employer] recommends the following guidelines: MG/DL [...] - 6.0 % Final Comment: (NOTE) The [place] [employer] recommends the following Guidelines: 5.7-6.4% Indicates increased risk for diabetes (Prediabetes). >6.5% Diagnostic of diabetes. In the absence of unequivocal hyperglycemia, results should be confirmed by repeat test. <7% Glycemic recommendation for non adults with diabetes. [place] [employer], Standards of Medical Care in [...] Foot and Ankle Surgery documented in this [facility]03-31-2022 Miscellaneous Notes* Care Plan - Trini Boyce RN - 11/09/2021 1:00 PM EDT Progressing documented in this [facility]03-30-2022 Hospital Discharge instructions* Instructions* Trini Boyce RN - 11/08/2021 You have been treated at [facility] for reasons of wound healing. WOUND CARE: [...] borderfoam Offloading: Darco shoe Change Dressinx/week HHC: [place] Return: 2 weeks SPECIAL INSTRUCTIONS: Nutrition: Increase dietary protein intake as instructed. Foot Wear: Follow specialty footwear instructions as advised. Off loading/Pressure Reduce: PRECAUTIONS: If any of the following occur, contact [phone] immediately or go to your nearest emergency [...] your scheduled appointment, occasionally patients admitted to [facility] need [facility] care. In that case we [...] have any questions, please call us at [phone] documented in this encounterRegional Medical CenterCvgrlk33-00-7121 History of Present illness Narrative* Tiffany Mcneal PA-C - 10/26/2021 10:15 AM EDT [facility] 10/26/21 Patient Name: Hanna [...] taking for the 10/26/21 encounter (Hospital Encounter)with [facility] 1. Allergies Allergen Reactions [...] - 99 MG/DL Final Comment: (NOTE) The [place] [employer] recommends the following guidelines: MG/DL [...] - 6.0 % Final Comment: (NOTE) The [place] [employer] recommends the following Guidelines: 5.7-6.4% Indicates increased risk for diabetes (Prediabetes). >6.5% Diagnostic of diabetes. In the absence of unequivocal hyperglycemia, results should be confirmed by repeat test. <7% Glycemic recommendation for non adults with diabetes. [place] [employer], Standards of Medical Care in [...] PA-C, 10/26/2021 11:18 AM documented in this encounterRegional Medical CenterSpkcti42-49-8915 Miscellaneous Notes* Care Plan - Katey Herrera RN - 10/26/2021 10:15 AM EDT Progressing. documented in this encounterRegional Medical CenterViqmnc96-86-9742 Hospital Discharge instructions* Instructions* Katey Herrera RN - 10/25/2021 You have been treated at [facility] for reasons of wound healing. WOUND CARE: [...] If any of the following occur, contact [phone] immediately or go to your nearest emergency [...] your scheduled appointment, occasionally patients admitted to [facility] need priority care. In that case we [...] have any questions, please call us at [phone] documented in this encounterRegional Medical CenterHotiws60-24-6759 History of Present illness Narrative* Tiffany Mcneal PA-C - 10/05/2021 10:15 AM EST [facility] 10/05/21 Patient Name: Hanna [...] she will call today to get into facilities director. Nutrition: Hemoglobin A1c on 06/27/2020 was 7.8. [...] taking for the 10/05/21 encounter (Hospital Encounter)with [facility] 1. Allergies Allergen Reactions [...] - 99 MG/DL Final Comment: (NOTE) The [place] [employer] recommends the following guidelines: MG/DL [...] - 6.0 % Final Comment: (NOTE) The [place] [employer] recommends the following Guidelines: 5.7-6.4% Indicates increased risk for diabetes (Prediabetes). >6.5% Diagnostic of diabetes. In the absence of unequivocal hyperglycemia, results should be confirmed by repeat test. <7% Glycemic recommendation for non adults with diabetes. [place] [employer], Standards of Medical Care in [...] PA-C, 10/05/2021 10:18 AM documented in this encounterRegional Medical CenterTdazvv66-57-3254 Miscellaneous Notes* Care Plan - Katey Herrera RN - 10/05/2021 10:15 AM EST Progressing through wound care process. Debridement performed by MT. Russel perla. Supplies requested and order sent to [facility]. Electronically signed by: Katey Herrera RN, 10/05/2021 11:25 AM documented in this encounterRegional Medical CenterCekjsx93-23-7522 Hospital Discharge instructions* Instructions* Katey Herrera RN - 10/03/2021 You have been treated at [facility] for reasons of wound healing. WOUND CARE: [...] If any of the following occur, contact [phone] immediately or go to your nearest emergency [...] your scheduled appointment, occasionally patients admitted to [facility] need priority care. In that case we [...] have any questions, please call us at [phone] documented in this encounterRegional Medical CenterOyabdi94-64-6904 Hospital Discharge instructions* Instructions* Trini Boyce RN - 09/21/2021 You have been treated at [facility] for reasons of wound healing. WOUND CARE: [...] If any of the following occur, contact [phone] immediately or go to your nearest emergency [...] your scheduled appointment, occasionally patients admitted to [facility] need priority care. In that case we [...] have any questions, please call us at [phone] documented in this encounterRegional Medical CenterFxbcxd95-56-0354 History of Present illness Narrative* Tiffany Mcneal PA-C - 09/21/2021 10:15 AM EST [facility] 09/21/21 Patient Name: Hanna [...] taking for the 09/21/21 encounter (Hospital Encounter)with [facility] 1. Allergies Allergen Reactions [...] - 99 MG/DL Final Comment: (NOTE) The [place] [employer] recommends the following guidelines: MG/DL [...] - 6.0 % Final Comment: (NOTE) The [place] [employer] recommends the following Guidelines: 5.7-6.4% Indicates increased risk for diabetes (Prediabetes). >6.5% Diagnostic of diabetes. In the absence of unequivocal hyperglycemia, results should be confirmed by repeat test. <7% Glycemic recommendation for non adults with diabetes. [place] [employer], Standards of Medical Care in [...] PA-C, 09/21/2021 10:54 AM documented in this encounterRegional Medical CenterKczrkf39-55-9297 History of Present illness Narrative* Tiffany Mcneal PA-C - 08/31/2021 10:15 AM EST [facility] 08/31/2021 Patient Name: Hanna [...] with drainage 08/31/21 1000 Wound Bed Appearance [place] 08/31/21 1000 Drainage Amount Moderate 08/31/21 1000 [...] taking for the 08/31/21 encounter (Hospital Encounter)with [facility] 1. Allergies Allergen Reactions [...] - 99 MG/DL Final Comment: (NOTE) The [place] [employer] recommends the following guidelines: MG/DL [...] - 6.0 % Final Comment: (NOTE) The [place] [employer] recommends the following Guidelines: 5.7-6.4% Indicates increased risk for diabetes (Prediabetes). >6.5% Diagnostic of diabetes. In the absence of unequivocal hyperglycemia, results should be confirmed by repeat test. <7% Glycemic recommendation for non adults with diabetes. [place] [employer], Standards of Medical Care in [...] PA-C, 08/31/2021 1:37 PM documented in this encounterRegional Medical CenterWjjopj20-60-8753 Hospital Discharge instructions* Instructions* Katey Herrera, RN - 08/30/2021 You have been treated at [facility] for reasons of wound healing. WOUND CARE: [...] If any of the following occur, contact [phone] immediately or go to your nearest emergency [...] your scheduled appointment, occasionally patients admitted to [facility] need priority care. In that case we [...] have any questions, please call us at [phone] documented in this encounterRegional Medical CenterXkyzfn50-59-5025 History of Present illness Narrative* Tiffany Mcneal PA-C - 08/17/2021 10:15 AM EST [facility] 08/17/2021 Patient Name: Hanna [...] with drainage 08/17/21 1000 Wound Bed Appearance [place] 08/17/21 1000 Drainage Amount Moderate 08/17/21 1000 [...] for the 08/17/21 encounter (Hospital Encounter) with [facility] 1. Allergies Allergen Reactions [...] - 99 MG/DL Final Comment: (NOTE) The [place] [employer] recommends the following guidelines: MG/DL [...] - 6.0 % Final Comment: (NOTE) The [place] [employer] recommends the following Guidelines: 5.7-6.4% Indicates increased risk for diabetes (Prediabetes). >6.5% Diagnostic of diabetes. In the absence of unequivocal hyperglycemia, results should be confirmed by repeat test. <7% Glycemic recommendation for non adults with diabetes. [place] [employer], Standards of Medical Care in [...] PA-C, 08/17/2021 12:20 PM documented in this encounterRegional Medical CenterCvjjjd40-92-8061 Miscellaneous Notes* Care Plan - Katey Herrera RN - 08/17/2021 10:15 AM EST Progressing. documented in this encounterRegional Medical CenterNliyfn93-41-3726 Hospital Discharge instructions* Instructions* Katey Herrera RN - 08/16/2021 You have been treated at [facility] for reasons of wound healing. WOUND CARE: [...] If any of the following occur, contact [phone] immediately or go to your nearest emergency [...] your scheduled appointment, occasionally patients admitted to [facility] need [facility] care. In that case we [...] have any questions, please call us at [phone] documented in this encounterRegional Medical CenterEecagm51-13-7268 History of Present illness Narrative* Tiffany Mcneal PA-C - 08/03/2021 10:15 AM EST [facility] 08/03/21 Patient Name: Hanna [...] Dried drainage 08/03/21 1000 Wound Bed Appearance [place] 08/03/21 1000 Drainage Amount Small 08/03/21 1000 [...] have been marked as taking for the 12/23/21 encounter (Hospital Encounter) with [facility] 1. Allergies Allergen Reactions [...] - 99 MG/DL Final Comment: (NOTE) The [place] [employer] recommends the following guidelines: MG/DL [...] - 6.0 % Final Comment: (NOTE) The [place] [employer] recommends the following Guidelines: 5.7-6.4% Indicates increased risk for diabetes (Prediabetes). >6.5% Diagnostic of diabetes. In the absence of unequivocal hyperglycemia, results should be confirmed by repeat test. <7% Glycemic recommendation for non adults with diabetes. [place] [employer], Standards of Medical Care in [...] PA-C, 08/03/2021 11:08 AM documented in this encounterRegional Medical CenterZcvfyv93-05-9357 Miscellaneous Notes* Care Plan - Katey Herrera RN - 08/03/2021 10:15 AM EST Progressing. documented in this encounterRegional Medical CenterUpdhah98-13-2639 Hospital Discharge instructions* Instructions* Katey Herrera RN - 08/01/2021 You have been treated at [facility] for reasons of wound healing. WOUND CARE: [...] If any of the following occur, contact [phone] immediately or go to your nearest emergency [...] your scheduled appointment, occasionally patients admitted to [facility] need priority care. In that case we [...] have any questions, please call us at [phone] documented in this encounterRegional Medical CenterYlxxqx74-79-3988 History of Present illness Narrative* Bella Pratt APRN - 07/20/2021 10:15 AM EST [facility] 07/13/21 Patient Name: Hanna Nelson [...] Dried drainage 07/20/21 1000 Wound Bed Appearance [place] 07/20/21 1000 Drainage Amount Small 07/20/21 1000 [...] taking for the 07/20/21 encounter (Hospital Encounter)with [facility] 1. Allergies Allergen Reactions [...] - 99 MG/DL Final Comment: (NOTE) The [place] [employer] recommends the following guidelines: MG/DL [...] - 6.0 % Final Comment: (NOTE) The [place] [employer] recommends the following Guidelines: 5.7-6.4% Indicates increased risk for diabetes (Prediabetes). >6.5% Diagnostic of diabetes. In the absence of unequivocal hyperglycemia, results should be confirmed by repeat test. <7% Glycemic recommendation for non adults with diabetes. [place] [employer], Standards of Medical Care in [...] APRN, 07/20/2021 10:28 AM documented in this encounterRegional Medical CenterTtcfne50-21-1286 Miscellaneous Notes* Care Plan - Trini Boyec RN - 07/20/2021 10:15 AM EST Progressing documented in this encounterRegional Medical CenterOkludi04-01-5541 Hospital Discharge instructions* Instructions* Trini Boyce RN - 07/18/2021 You have been treated at [facility] for reasons of wound healing. WOUND CARE: [...] If any of the following occur, contact [phone] immediately or go to your nearest emergency [...] your scheduled appointment, occasionally patients admitted to [facility] need priority care. In that case we [...] have any questions, please call us at [phone] documented in this encounterRegional Medical CenterNvvcez68-78-5304 History of Present illness Narrative* Tiffany Mcneal PA-C - 07/13/2021 9:00 AM EST [facility] [place] 07/13/21 Patient Name: Hanna Nelson : 1940 [...] Dressing Status / Change Moist with drainage 07/13/21 09 Wound Bed Appearance [place] 07/13/21 09 Drainage Amount Small 07/13/21 09 Drainage Appearance Serosanguineous 07/13/21 09 Odor None 07/13/21 09 Wound cleanser Normal saline 07/13/21 0900 Specific Procedures Cultures 06/22/21 1000 Advanced Wound Intervention Other (Comment) 06/22/21 1000 Wound length (cm) 0.1 cm 07/13/21 0900 Wound width (cm) 0.1 cm 07/13/21 0900 Wound depth (cm) 0.05 cm 07/13/21 0900 Wound Surface Area (length x width) 0.01 [...] taking for the 07/13/21 encounter (Hospital Encounter)with [facility] 3. Allergies Allergen Reactions [...] - 99 MG/DL Final Comment: (NOTE) The [place] [employer] recommends the following guidelines: MG/DL [...] - 6.0 % Final Comment: (NOTE) The [place] [employer] recommends the following Guidelines: 5.7-6.4% Indicates increased risk for diabetes (Prediabetes). >6.5% Diagnostic of diabetes. In the absence of unequivocal hyperglycemia, results should be confirmed by repeat test. <7% Glycemic recommendation for non adults with diabetes. [place] [employer], Standards of Medical Care in [...] PA-C, 07/13/2021 9:00 AM documented in this [facility]12-01-2021 Hospital Discharge instructions* Instructions* Mercedez Velasquez RN - 07/12/2021 You have been treated at [facility] for reasons of wound healing. WOUND CARE: [...] If any of the following occur, contact [phone] immediately or go to your nearest emergency [...] your scheduled appointment, occasionally patients admitted to [facility] need [facility]. In that case we [...] have any questions, please call us at [phone] documented in this encounterRegional Medical CenterVrpkjz24-64-7645 History of Present illness Narrative* Tiffany Mcneal PA-C - 06/29/2021 10:15 AM EST [facility] 06/29/2021 Patient Name: Hanna [...] for the 06/29/21 encounter (Hospital Encounter) with [facility] 1. Allergies Allergen Reactions [...] - 99 MG/DL Final Comment: (NOTE) The [place] [employer] recommends the following guidelines: MG/DL [...] - 6.0 % Final Comment: (NOTE) The [place] [employer] recommends the following Guidelines: 5.7-6.4% Indicates increased risk for diabetes (Prediabetes). >6.5% Diagnostic of diabetes. In the absence of unequivocal hyperglycemia, results should be confirmed by repeat test. <7% Glycemic recommendation for non adults with diabetes. [place] [employer], Standards of Medical Care in [...] PA-C, 06/29/2021 11:19 AM documented in this encounterRegional Medical CenterKpzdea98-71-6879 Miscellaneous Notes* Care Plan - Katey Herrera RN - 06/29/2021 10:15 AM EST Progressing. documented in this encounterRegional Medical CenterQfxcch93-39-2489 Hospital Discharge instructions* Instructions* Katey Herrera RN - 06/23/2021 You have been treated at [facility] for reasons of wound healing. WOUND CARE: [...] If any of the following occur, contact [phone] immediately or go to your nearest emergency [...] your scheduled appointment, occasionally patients [facility] need priority care. In that case we [...] have any questions, please call us at [phone] documented in this encounterRegional Medical CenterDfimsf64-90-0380 Hospital Discharge instructions* Instructions* Katey Herrera RN - 06/22/2021 You have been treated at [facility] for reasons of wound healing. WOUND CARE: [...] If any of the following occur, contact [phone] immediately or go to your nearest emergency [...] your scheduled appointment, occasionally [facility] need priority care. In that case we [...] have any questions, please call us at [phone] documented in this encounterRegional Medical CenterWedabo06-33-5696 History of Present illness Narrative* Tiffany Mcneal PA-C - 06/22/2021 9:30 AM EST [facility] 06/22/2021 Patient Name: Hanna [...] Dressing Status / Change Moist with drainage 06/22/21949 Wound Bed Appearance Other (Comment) 06/22/21949 Drainage Amount Moderate 06/22/2150 Drainage Appearance Brown;Red 06/22/2150 Odor None 06/22/21949 Wound cleanser Normal saline 06/22/21949 Specific Procedures Cultures 06/22/21 1000 Advanced Wound [...] for the 06/22/21 encounter (Hospital Encounter) with [facility] 4. Allergies Allergen Reactions [...] - 99 MG/DL Final Comment: (NOTE) The [place] [employer] recommends the following guidelines: MG/DL [...] - 6.0 % Final Comment: (NOTE) The [place] [employer] recommends the following Guidelines: 5.7-6.4% Indicates increased risk for diabetes (Prediabetes). >6.5% Diagnostic of diabetes. In the absence of unequivocal hyperglycemia, results should be confirmed by repeat test. <7% Glycemic recommendation for non adults with diabetes. [place] [employer], Standards of Medical Care in [...] PA-C, 06/22/2021 10:44 AM documented in this encounterRegional Medical [id number] History of Present illness Narrative* Tiffany Mcneal PA-C - 03/31/2021 11:00 AM EDT [facility] 03/31/21 Patient Name: Hanna Nelson : 1940 AGE: [age] year old GENDER: Female Chief Complaint/Reason for Visit Hanna Nelson is a 80 year old female who presents today for wound care. No new wound care complaints nor issues. Tolerating dressing changes well. No systemic complaints. Assessment/Dermatologic Exam/Plan Wound diagnosis/etiology and severity: Hanna Nelson is an 80-year-old female who is well-known [facility] and returns again on 03/10/21 [...] taking for the 03/31/21 encounter (Hospital Encounter)with [facility] WOUND [facility]ARE ROOM 1. Allergies Allergen Reactions [...] - 99 MG/DL Final Comment: (NOTE) The [place] [employer] recommends the following guidelines: MG/DL [...] - 6.0 % Final Comment: (NOTE) The [place] [employer] recommends the following Guidelines: 5.7-6.4% Indicates increased risk for diabetes (Prediabetes). >6.5% Diagnostic of diabetes. In the absence of unequivocal hyperglycemia, results should be confirmed by repeat test. <7% Glycemic recommendation for non adults with diabetes. [place] [employer], Standards of Medical Care in [...] PA-C, 03/31/2021 11:00 AM documented in this encounterRegional Medical [id number] Hospital Discharge instructions* Instructions* Tesfaye Su - 03/30/2021 You have been treated at [facility] for reasons of wound healing. WOUND CARE: [...] call, please call the wound clinic at [phone] for an appointment. 2. Clean and dry [...] If any of the following occur, contact [phone] immediately or go to your nearest emergency [...] your scheduled appointment, occasionally patients admitted to [facility] need priority care. In that case we [...] have any questions, please call us at [phone] documented in this encounterRegional Medical [id number] Hospital Discharge instructions* Instructions* Katey Herrera, RN - 03/24/2021 You have been treated at [facility] for reasons of wound healing. WOUND CARE: [...] If any of the following occur, contact [phone] immediately or go to your nearest emergency [...] have any questions, please call us at [phone] documented in this encounterRegional Medical [id number] History of Present illness Narrative* Tiffany Mcneal PA-C - 03/24/2021 11:00 AM EDT [facility] 03/24/21 Patient Name: Hanna Nelson : 1940 AGE: [age] year old GENDER: Female Chief Complaint/Reason for Visit Hanna Nelson is a 80 year old female who presents today for wound care. No new wound care complaints nor issues. Tolerating dressing changes well. No systemic complaints. Assessment/Dermatologic Exam/Plan Wound diagnosis/etiology and severity: Hanna Nelson is an 80-year-old female who is well-known [facility] and returns again on 03/10/21 [...] with drainage 03/24/21 1100 Wound Bed Appearance [place] 03/24/21 1100 Drainage Amount Moderate 03/24/21 1100 [...] taking for the 03/24/21 encounter (Hospital Encounter)with [facility]OUND [facility] RO[facility] 1. Allergies Allergen Reactions [...] - 99 MG/DL Final Comment: (NOTE) The [place] [employer] recommends the following guidelines: MG/DL [...] - 6.0 % Final Comment: (NOTE) The [place] [employer] recommends the following Guidelines: 5.7-6.4% Indicates increased risk for diabetes (Prediabetes). >6.5% Diagnostic of diabetes. In the absence of unequivocal hyperglycemia, results should be confirmed by repeat test. <7% Glycemic recommendation for non adults with diabetes. [place] [employer], Standards of Medical Care in [...] PA-C, 03/24/2021 11:23 AM documented in this encounterRegional Medical [id number] Hospital Discharge instructions* Instructions* Katey Herrera, RN - 03/17/2021 You have been treated at [facility] for reasons of wound healing. WOUND CARE: [...] If any of the following occur, contact [phone] immediately or go to your nearest emergency [...] your scheduled appointment, occasionally patients admitted to [facility] need priority care. In that case we [...] have any questions, please call us at [phone] documented in this encounterRegional Medical [id number] History of Present illness Narrative* Nic Temple MD - 01/26/2021 3:35 PM EDT WOUND CARE NOTE Name:HANNA NELSON Account: [id number] Progress Note Details Patient Name: HANNA NELSON. [...] go next week on a vacation to [place] with her family. She is getting good [...] Crepitus, Fluctuance, Friable, Rash, Moist, Maceration, Atrophie [place], Cyanosis, Ecchymosis, Erythema, Hemosiderosis, Pallor, Rubor. The [...] wound care. Call the Wound Center at [phone] if you have signs or symptoms of [...] MD Date: 12/30/2020 11:02:30 Verified/Reviewed by 12/30/20 110[address] [facility] PATIENT NAME: HANNA NELSON [address] [place] MEDICAL REC #: [id number] [place] [address] ADMIT DATE: SERVICE DATE: 01/02/21 Wound Care Note ATTENDING PHY: Nic Temple MD [facility] History of Present illness Narrative* Nic Temple MD - 01/18/2021 3:33 PM EDT WOUND CARE NOTE Name:HANNA NELSON Account: [id number] Progress Note Details Patient Name: HANNA NELSON. [...] Crepitus, Fluctuance, Friable, Rash, Moist, Maceration, Atrophie [place], Cyanosis, Ecchymosis, Erythema, Hemosiderosis, Pallor, Rubor. The [...] wound care. Call the Wound Center at [phone] if you have signs or symptoms of [...] MD Date: 12/23/2020 13:50:25 Verified/Reviewed by 12/23/[address] [place] [address] [facility] PATIENT NAME: HANNA NELSON [address] [place] MEDICAL REC #: [id number] [place] [address] ADMIT DATE: SERVICE DATE: 01/02/21 Wound Care Note ATTENDING PHY: Nic Temple MD [facility]* Diagnosis Encounter for screening mammogram for malignant neoplasm of breast Other screening mammogram documented in this encounter [facility] note* Diagnosis Lower extremity ulceration, right, with fat layer exposed (HC CODE)- Primary Lower extremity ulceration, right, with fat layer exposed (HC CODE) documented in this encounter [facility] note* Diagnosis Lower extremity ulceration, right, with fat layer exposed (HC CODE) documented in this encounter [facility] note* Diagnosis Chronic pain of right knee documented in this encounter [facility] note* Diagnosis Acute pain of right shoulder documented in this encounter [facility] note* Diagnosis Cellulitis of right lower leg- [...] unspecified Mixed hyperlipidemia documented in this encounter [facility] note* Diagnosis Hyperglycemia- Primary Other abnormal glucose documented in this encounter [facility] note* Diagnosis Uncontrolled type 2 diabetes mellitus with hyperglycemia (HCC)- Primary Hyperkalemia Hyperpotassemia Urinary tract infection without hematuria, site unspecified Uncontrolled type 2 diabetes mellitus with hyperglycemia (HCC) 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, with necrosis of muscle (HCC)- Primary documented in this encounter [facility] note* Diagnosis Diabetic ulcer of other part [...] both lower extremities documented in this encounter [facility]* Diagnosis Memory loss- Primary documented in this encounter [facility]* Diagnosis Diabetic ulcer of other [...] of muscle (HCC) documented in this encounter [facility]* Diagnosis Diabetic ulcer of right [...] of muscle (HCC) documented in this encounter [facility]* Diagnosis Posterior tibial tendon dysfunction [...] with hyperglycemia (HCC) documented in this encounter [facility]* Diagnosis Diabetic ulcer of other [...] with hyperglycemia (HCC) documented in this encounter [facility]* Diagnosis 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) Sepsis (HCC) documented in this encounter [facility]* Diagnosis Ulcer of right foot with fat layer exposed (HCC)- Primary Diabetic polyneuropathy associated with type 2 diabetes mellitus (HCC) Pes planus of both feet 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 Uncontrolled type 2 diabetes mellitus with hyperglycemia (HCC) Charcot's joint of foot, right documented in this encounter [facility]* Diagnosis Ulcer of right foot with fat layer exposed (HCC)- Primary Diabetic polyneuropathy associated with type 2 diabetes mellitus (HCC) Pes planus of both feet 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 Uncontrolled type 2 diabetes mellitus with hyperglycemia (HCC) Charcot's joint of foot, right documented in this encounter [facility]* Diagnosis Ulcer of right foot with fat layer exposed (HCC)- Primary Diabetic polyneuropathy associated with type 2 diabetes mellitus (HCC) Pes planus of both feet 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 Uncontrolled type 2 diabetes mellitus with hyperglycemia (HCC) Charcot's joint of foot, right documented in this encounter [facility]* Diagnosis Atrial fibrillation with rapid ventricular response (HCC)- Primary Atrial fibrillation with rapid ventricular response (HCC) NAYELY (acute kidney injury) (HCC) Chronic atrial fibrillation with RVR (HCC) 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, with necrosis of muscle (HCC) documented in this encounter [facility]* Diagnosis Closed fracture of left hip, initial encounter ([facility])- Primary Closed fracture of left hip, initial encounter ([facility]) Osteoporosis, unspecified osteoporosis type, unspecified pathological fracture presence documented in this encounter [facility] noteNo assessment information availableWCenterville Work Phone: Hospital Discharge instructionsAdditional Instructions 1. Increase your metoprolol to 50 mg in the morning and do not change the p.m. dose. 2. Follow-up with your doctor for repeat exam and EKG to assess your rhythm. [facility] Work Phone: Reason for referral (narrative)No reason for referral information availableWCenterville Work Phone: Rehrwz for visit Narrative* Auth/Cert (Routine) Specialty Diagnoses / Procedures Referred By Twan reyes Referred To Contact Diagnoses Closed fracture of left hip, initial encounter ([facility]) Procedures .. Janet Houston DO [address] [place] [address] Phone: tel: fax: [facility] OR [address] [place] [address] Phone: tel: Referral ID Status Reason Start Date Expiration Date Visits Re quested Visits Authorized [id number] [facility] Discharge Instructions * Instructions* Tesfaye Su - 03/30/2020 You have been treated at [facility] for reasons of wound healing. WOUND CARE: [...] If any of the following occur, contact [phone] immediately or go to your nearest emergency [...] your scheduled appointment, occasionally patients admitted to [facility] need priority care. In that case we [...] have any questions, please call us at [phone] documented in this encounter* Instructions* Tesfaye Su Jaz - 04/06/2020 You have been treated at [facility] for reasons of wound healing. WOUND CARE: [...] call, please call the wound clinic at [phone] for an appointment. 2. Clean and dry [...] If any of the following occur, contact [phone] immediately or go to your nearest emergency [...] your scheduled appointment, occasionally patients admitted to [facility] need priority care. In that case we [...] have any questions, please call us at [phone] documented in this encounter* Instructions* Brooke Cooper RN - 10/10/2020 You have been treated at [facility] for reasons of wound healing. WOUND CARE: [...] If any of the following occur, contact [phone] immediately or go to your nearest emergency [...] your scheduled appointment, [facility]. In that case we [...] have any questions, please call us at [phone] documented in this encounter* Instructions* Jacquelin Ray MSW,VIKTOR-S - 10/16/2020 Patient Name: Hanna Nelson : 1940 Transfering facility: [facility] Admit date: 10/15/2020 Primary Diagnosis: cellulitis Primary Care Physician: Lisy Pace Receiving facility: Destination - Admitted Since 10/15/2020 Service Provider Selected Services Address Phone Patient Preferred [facility]/[address] [address] Transfer date: 10/21/20 Preadmission Screening: N/A PATIENT INFORMATION Name: Hanna Nelson Servando. Rep.: Hi Relationship: son Work Phone: Address: [address] [place] [id number] SSN: [id number] : 1940 Marital Status: Unknown Age: [age] year old Sex: female Mentation: Alert and oriented x3 Primary Insurance:Traditional Medicare, Policy # [id number] Secondary Insurance:None Private Pay: no Last Weight: [...] heel unstageable Living Will: Durable Power of Parimutuel Ticket Cashier: Seeking Additional Treatment: Contact your Primary Care [...] Patient Valuables verified: No changes Valuables List: Tristan Sanchez Valuables Disposition: Patient, Spouse(bracelet to son) If you currently smoke or if you have smoked in the last year, please know that smoking is harmful to your health and you are strongly advised to stop. Call [employer] at or Toll [phone] for information about a free Stop Smoking Group. Surgical Procedures: Communicable Diseases: MRSA: no VRE: no C.Diff: no Written documentation has been provided to the patient and or caregiver which addresses education regarding discharge medications. documented in this encounter* Instructions* Katey Herrera RN - 10/24/2020 You have been treated at [facility] for reasons of wound healing. WOUND CARE: [...] If any of the following occur, contact [phone] immediately or go to your nearest emergency [...] your scheduled appointment, occasionally patients admitted to [facility] need priority care. In that case we [...] have any questions, please call us at [phone] documented in this encounter Advance Directives Documents on File Type Date Recorded Patient Ferryboat Helper Expl anation Power of Parimutuel Ticket Cashier 12/08/2024 11:54 AM Date Activated Date Inactivated [...] Documents on File Type Date Recorded Patient [employer]erryboat Helper Expl anation Power of Parimutuel Ticket Cashier 01/25/2025 11:25 PM Power of Parimutuel Ticket Cashier 12/08/2024 11:54 AM Hi Antonio Date Activated Date Inactivated Comments 01/26/2025 9:47 AM Date Activated Date Inactivated Comments 12/03/2024 12:02 PM 12/05/2024 1:52 PM Date Activated Date Inactivated Comments 09/18/2024 6:54 PM 09/24/2024 5:18 PM Healthcare Agents on File Name Relationship Healthcare Agent Relationshi p Communication Hi [facility] Care Agent Documents on File Type Date Recorded Patient Ferryboat Helper Expl anation Power of Parimutuel Ticket Cashier 01/25/2025 11:25 PM Power of Parimutuel Ticket Cashier 12/08/2024 11:54 AM Hi Antonio Date Activated Date Inactivated Comments 01/26/2025 9:47 [...] p Communication Hi Clark Health Care Agent Advance Directive Response Recorded Date/ Time Do you have a Healthcare Power of Parimutuel Ticket Cashier? Yes May 31, 2025 1:40pm Reason for Referral Status Reason Specialty Diagnoses / Procedures Referre d By Contact Referred To Contact Closed Diagnoses Essential hypertension Paroxysmal atrial fibrillation (HC CODE) Palpitation Type 2 diabetes mellitus with other specified complication, without long-term current use of insulin (HC CODE) Precordial pain Procedures NM MYOCARDIAL PERFUSION IMAGING NM MYOCARDIAL PERFUSION IMAGING Brian Wilson MD [address] [place] [address] Status Reason Specialty Diagnoses / Procedures Referred By Contact Referred To Contact Pending Review Specialty Services Required Occupational Therapy Diagnoses So Yusuf MD [address] [place] [address] Status Reason Specialty Diagnoses / Procedures Referred By Contact Referred To Contact Pending Review Specialty Services Required Physical Therapy Diagnoses So Yusuf MD [address] [place] [address] Status Reason Specialty Diagnoses / Procedures Referre d By Contact Referred To Contact Augusta Weston, LAPIDARIST [address] [place] [address] Assessments Diagnosis Essential hypertension Unspecified essential hypertension [...] Nielsen MD - 10/21/2020 11:30 AM EST [facility] Transition of Care Form/Discharge Summary DEMOGRAPHICS PATIENT NAME: Hanna Nelson : 1940 DATE ADMITTED: 10/15/2020 DATE OF DISCHARGE: 10/21/2020 DISCHARGING PHYSICIAN AND CONTACT: So Nielsen Phone: [phone] PHYSICIANS CONSULTED: Treatment Team: Consulting Physician: Nader Ray MD PCP: Lisy Pace [phone] [facility] Accepting Physician: ECF Physician Phone Number: MEDICAL SYNOPSIS REASON FOR [...] hypothyroidism, diabetic foot ulcer who presents to [facility] s/p fall and complaints of generalized weakness [...] 10 more days, wound care per Dr. Ray. Atrial fibrillation with RVR: Heart rate improved, [...] lisinopriL 40 mg tablet Commonly known as: RICARDO LUDWIGSTRIL Where to Get Your Medications These medications were sent to [id number] - [place], [place] - [address] [phone] [facility] [phone] amoxicillin-potassium clavulanate 875-125 mg tablet atenoloL 25 [...] calf. DICTATED BY: SAIDA QUINTERO MD Workstation ID:[id number] DEXA BONE DENSITY SCAN AXIAL Result Date: 09/23/2020 09/23/2020 1:16 PM DXA BONE MINERAL DENSITY SCAN: INDICATION: Osteoporosis screening MACHINE: [employer] COMMENT: The bone mineral density (BMD) from [...] DICTATED BY: SHIRA DOS SANTOS MD Workstation ID:[id number] [place] MYOCARDIAL PERFUSION IMAGING Result Date: 10/04/2020 CARDIAC [...] or subluxation. Dictated by Conrad Pineda M.D.Workstation ID:[id number] CT EXTREMITY LOWER RIGHT WITHOUT CONTRAST Result [...] healed remote trauma. DICTATEDBY: Conrad Pineda M.D.Workstation ID:[id number] MAMMOGRAPHY SCREEN BILATERAL WITH CAD Result Date: 09/23/2020 #[id number] - MAMMOGRAPHY SCREEN BILATERAL WITH CAD DIGITAL SCREENING MAMMOGRAM WITH CAD: 09/23/2020 INDICATIONS: The patient is asymptomatic. Comparison is made to exam dated: 07/17/2019 mammogram - [facility]. There are scattered areas of fibroglandular [...] venous thrombosis. Dictated byConrad Pineda M.D. Workstation ID:[id number] CT HEAD (URGENT-ANTICOAGULATED HEAD INJURY PATIENT) Result [...] SUBTLE LESION. DICTATED BY LOREN SALCIDO M.D.Workstation ID:[id number] STRESS TEST EKG WITH NM IMAGING Result Date: 10/04/2020 Nicholas Lemon DO 10/04/2020 11:52 AM [facility] CARDIAC LEXISCAN STRESS TEST EKG PORTION [...] Dictated by Liset Wilson MD, PhD Workstation ID:[id number] PATIENT STATUS ADVANCE DIRECTIVES Durable Power of Parimutuel Ticket Cashier: Living Will: Code Status Information Code Status Total Support PLANNED INTERVENTIONS Home Care Agency: Name: Phone Number: Assessment of Family & Caregiver Status: DISPOSITION FOLLOW UP APPOINTMENTS: [facility] [address] [facility] [address] Lisy Pace MD [address] [facility] [address] Follow up Nader Ray MD [address] [facility] [address] [facility] [address] Follow up in 1 week(s) PENDING TESTS and PERTINENT FINDINGS REQUIRING FOLLOW UP: DISCHARGE ORDERS Discharge Procedure Orders Diabetic (ADA) Medium Calorie Controlled Diet Order Specific Question Answer Comments Order Diabetic Med (1600 - 1900 Calorie) Texture- Regular Physical [facility] - [facility] Referral Priority: Routine Referral Type: PT/OT/ST Referral Reason: Specialty Services Required Requested Specialty: Physical Therapy Number of Visits Requested: 1 Occupational Therapy - Eval And Treat ([facility]) Referral Priority: Routine Referral Type: PT/OT/ST Referral [...] History of Present Illness * Jacquelin Ray MSW,TELEVISION NEWS PHOTOGRAPHER-S - 10/21/2020 1:12 PM EST Social Work Progress Note Furnace Hand reviewed chart. Furnace Hand noted MD has completed discharge orders to [facility]. Furnace Hand spoke with patient and son regarding discharge and both desire discharge to [facility]. Furnace Hand and RN completed AVS. Furnace Hand called and spoke with Herman at [facility] and faxed orders to same. Herman is agreeable to accept patient today. Facility confirmed that Medicare 3 day stay has been met and or insurance precert has been obtained by facility. CMS letter completed on 10/16. Furnace Hand arranged [id number]. Transport agency number is [phone] Furnace Hand update RN and Herman regarding discharge time. Furnace Hand copied chart and placed packets on hospital chart. Social Workerconfirmed needs prescriptions were in the packet for nursing facility . Patient discharged to nursing facility as acute rehab level of care through medicare insurance. Discharge facility: [facility] Report [phone] Electronically signed by: FELICITA Serrano LISW-S, Social Work Phone [phone] Weekday Office Hours: 8A-5P. Holiday/Weekends [phone]. For urgent needs between 5P-7P, please call [phone]. If after 7P, please call [facility] at [phone] or [facility] at [phone] * Jacquelin Ray MSW, LISW-S - 10/21/2020 [...] 10/21/2020 1:10 PM EST 10/21/2020 Hanna Nelson [facility] PATIENT [facility]ARE UN[facility] [phone] Arrangements have been completed for transfer to: Destination - Admitted Since 10/15/2020 Service Provider Selected Services Address Phone Fax Patient [facility] [address] [place] [address] DC *Level of Care is*: Acute Rehab Selected Continued Care - Admitted Since 10/15/2020 No services have been selected for the patient. Selected Continued Care - Admitted Since 10/15/2020 No services have been selected for the patient. Selected Continued Care - Admitted Since 10/15/2020 No services have been selected for the patient. rn clinical coordinator: Herman Date: 10/21 Ambulance service/relative's name: [facility] Patient care instructions have been documented on the Physician's Transfer Orders and the Nursing Care Plan, which will be sent with the patient to the extended care facility. The rights of assisted residents are protected under [place] Law by Section 3721.3. If the patientor family have concerns/problems that arise at the extended care facility that cannot be resolved through the site administrator, they may contact the local [facility]. I attest that the patient [...] Name: [facility]anna Nelson [facility] 1940 [id number] Admitting Diagnosis: Cellulitis [L03.90] OT DISCHARGE INFORMATION: [...] carry over motor learning from previous treatment [facility] 6 clicks V.2 Daily Activity Inpatient Short [...] occupational therapy treatment sessions. 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 If Hanna Neslon discharges prior to further therapy intervention, this information is to serve as the discharge summary from occupational therapy. Thank you for allowing me to participate in the care of Hanna Nelson. Please contact me with any questions. Signature: MARIN Khan/Jaz, 10/20/2020, 3:53 PM * Della Gaston MSW,TELEVISION NEWS PHOTOGRAPHER-S - 10/20/2020 2:00 PM EST Social Work Progress Note [facility] continues to be able to accept whenever patient is medically ready. SW will follow. Electronically signed by: FELICITA Moran, NANNETTE, [id number], 10/20/2020, 2:00 PM Saturday-Saturday Office Hours: 8:30am-5:00pm Holiday/Weekends: [phone] Urgent needs between 5P-7P every day: [phone] * So Nielsen MD - 10/20/2020 10:13 AM EST Images from the original note were not included. Internal Medicine Hospitalist Progress Note Hospitalist: So Nielsen MD [phone] Patient Identifier/Hospitalist Patient Name: Hanna Nelson : 1940 Room / Bed : [facility]412-1 Facitily : [facility] Date of Service: 10/20/2020 CSN: [id number] Admit Date: 10/15/2020 11:16 PM Attending Physician: [...] will add cefepime, wound care, consult Dr. Ray. Atrial fibrillation with RVR: Heart rate improved, [...] mg 25 mg Oral Q12H Juan M uQick MD 25 mg at 10/20/20 0907 atropine [...] 0907 fluticasone propionate (FLONASE) nasal spray 2 Delano 2 Delano Each Nostril daily Augusta Weston APRN 2 Delano at 10/20/20 0905 vitamins multiple therapeutic w/ [...] Q6H PRN Augusta Weston APRN docusate sodium-sennosides (LIDNA-COLACE/SENOKOT-S) tablet 2 Tab 2 Tab Oral HS [...] calf. DICTATED BY: SAIDA QUINTERO MD Workstation ID:[id number] DEXA BONE DENSITY SCAN AXIAL Result Date: 09/23/2020 09/23/2020 1:16 PM DXA BONE MINERAL DENSITY SCAN: INDICATION: Osteoporosis screening MACHINE: [employer] COMMENT: The bone mineral density (BMD) from [...] DICTATED BY: SHIRA DOS SANTOS MD Workstation ID:[id number] NM MYOCARDIAL PERFUSION IMAGING Result Date: 10/04/2020 [...] or subluxation. Dictated by Conrad Pineda M.D.Workstation ID:[id number] CT EXTREMITY LOWER RIGHT WITHOUT CONTRAST Result [...] healed remote trauma. DICTATEDBY: Conrad Pineda M.D.Workstation ID:[id number] MAMMOGRAPHY SCREEN BILATERAL WITH CAD Result Date: 09/23/2020 #[id number] - MAMMOGRAPHY SCREEN BILATERAL WITH CAD DIGITAL SCREENING MAMMOGRAM WITH CAD: 09/23/2020 INDICATIONS: The patient is asymptomatic. Comparison is made to exam dated: 07/17/2019 mammogram - [facility]. There are scattered areas of fibroglandular [...] venous thrombosis. Dictated byConrad Pineda M.D. Workstation ID:[id number] CT HEAD (URGENT-ANTICOAGULATED HEAD INJURY PATIENT) Result [...] SUBTLE LESION. DICTATED BY LOREN SALCIDO M.D.Workstation ID:[id number] STRESS TEST EKG WITH NM IMAGING Result Date: 10/04/2020 Nicholas Lemon DO 10/04/2020 11:52 AM [facility] CARDIAC LEXISCAN STRESS TEST EKG PORTION [...] Dictated by Liset Wilson MD, PhD Workstation ID:[id number] Signature Electronically signed by: So Nielsen MD, 10/20/2020 10:13 AM * Lindsey Lamar, OTR/L - 10/19/2020 1:50 PM EST ACUTE OCCUPATIONAL THERAPY PROGRESS NOTE Patient Information: Patients Name: Hanna Nelson [facility] 1940 [id number] Admitting Diagnosis: Cellulitis [L03.90] OT DISCHARGE INFORMATION: [...] Moderate assist CGA sit > stand from BS w/ FWW Required hands to hold onto walker for balance, Max A to wipe Toilet Transfer Current Status: Supervision CGA sit > stand from BS w/ FWW Bed, Chair, Wheelchair Transfer Current Status: Minimal assist CGA sit > stand from [facility]. Cues for hand placement to increase safety [...] occupational therapy treatment sessions. 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 If Hanna Nelson discharges prior to further therapy intervention, this information is to serve as the discharge summary from occupational therapy. Thank you for allowing me to participate in the care of Hanna Nelson. Please contact me with any questions. Signature: Arelis Sebastian OT/S, 10/19/2020, 1:51 PM Therapist/physical therapy assistant screening of patient indicates appropriate complexity for student medical intern involvement. Patient indicates to therapist/physical therapy assistant willingness to allow student medical intern to be involved in care of this patient. Plan of care reviewed with student prior to and after patient encounter. Signature: MARIN Escobar/Jaz, COATING AND EMBOSSING UNIT OPERATOR, 10/19/2020, 4:29 PM * So Nielsen MD - 10/19/2020 10:40 AM EST Images from the original note were not included. Internal Medicine Hospitalist Progress Note Hospitalist: So Nielsen MD [phone] Patient Identifier/Hospitalist Patient Name: Hanna Nelson : 1940 Room / Bed : 412/412-1 Facitily : [facility] Date of Service: 10/19/2020 CSN: [id number] Admit Date: 10/15/2020 11:16 PM Attending Physician: [...] will add cefepime, wound care, consult Dr. Ray. Atrial fibrillation with RVR: Heart rate improved, [...] 0857 fluticasone propionate (FLONASE) nasal spray 2 Delano 2 Delano Each Nostril daily Augusta Weston APRN 2 Delano at 10/19/20 0858 vitamins multiple therapeutic w/ [...] HS Augusta Weston APRN 2 Units at 10/19/20 09 Objective Vital Signs: Temp: 98.3 F (36.8 C) (10/19/20 08) Temp Min: 96.5 F (35.8 C) Min taken time: 10/18/20 1141 Max: 100.3 F (37.9 C) Max taken time: 10/18/20 1551 BP: 111/55 (10/19/20 08) Pulse: 76 (10/19/20942) Resp: 17 (10/19/20942) SpO2: [...] URINE NONE SEEN COMMENTS TEST PERFORMED AT [facility] ACCUCHECK GLUCOSE Collection Time: 10/18/20 6:13 PM [...] calf. DICTATED BY: SAIDA QUINTERO MD Workstation ID:[id number] DEXA BONE DENSITY SCAN AXIAL Result Date: 09/23/2020 09/23/2020 1:16 PM DXA BONE MINERAL DENSITY SCAN: INDICATION: Osteoporosis screening MACHINE: [employer] COMMENT: The bone mineral density (BMD) from [...] DICTATED BY: SHIRA DOS SANTOS MD Workstation ID:[id number] NM MYOCARDIAL PERFUSION IMAGING Result Date: 10/04/2020 [...] or subluxation. Dictated by Conrad Pineda M.D.Workstation ID:[id number] CT EXTREMITY LOWER RIGHT WITHOUT CONTRAST Result [...] healed remote trauma. DICTATEDBY: Conrad Pineda M.D.Workstation ID:[id number] MAMMOGRAPHY SCREEN BILATERAL WITH CAD Result Date: 09/23/2020 #[id number] - MAMMOGRAPHY SCREEN BILATERAL WITH CAD DIGITAL SCREENING MAMMOGRAM WITH CAD: 09/23/2020 INDICATIONS: The patient is asymptomatic. Comparison is made to exam dated: 07/17/2019 mammogram - [facility]. There are scattered areas of fibroglandular density [...] venous thrombosis. Dictated byConrad Pineda M.D. Workstation ID:[id number] CT HEAD (URGENT-ANTICOAGULATED HEAD INJURY PATIENT) Result [...] SUBTLE LESION. DICTATED BY LOREN SALCIDO M.D.Workstation ID:[id number] STRESS TEST EKG WITH NM IMAGING Result Date: 10/04/2020 Nicholas Lemon DO 10/04/2020 11:52 AM [facility] CARDIAC LEXISCAN STRESS TEST EKG PORTION [...] Dictated by Liset Wilson MD, PhD Workstation ID:[id number] Signature Electronically signed by: So Nielsen MD, [...] me with any questions. Signature: Lindsey Gann, OTR/Jaz, COATING AND EMBOSSING UNIT OPERATOR, 10/18/2020, 3:11 PM * Tiffany Palomares, PT - 10/18/2020 3:08 PM EST PHYSICAL THERAPY 10/18/2020 Patient Information: Patients Name: Hanna Nelson Therapy was attempted: 1500 Therapy not performed secondary to: Patient getting PICC placed at this time. Thank you for allowing me to participate in the care of Hanna Nelson. Please contact me with any questions. 10/18/2020, 3:08 PM * Dayna Camacho [facility] - 10/18/2020 1:11 PM EST [facility] Pharmacy Referral Sign-off 10/18/2020 Patient's Name: Hanna Nelson Referring Provider: Augusta Weston APRN Thank you for allowing pharmacy to participate in the management of your patient's vancomycin therapy. At this time, pharmacy will sign-off from the case as the therapy has been discontinued. Please consider referral to pharmacy again if the need arises. Electronically signed by: Dayna Camacho [facility], 10/18/2020 1:11 PM [phone] * So Nielsen MD - 10/18/2020 11:40 AM EST Images from the original note were not included. Internal Medicine Hospitalist Progress Note Hospitalist: So Nielsen MD [phone] Patient Identifier/Hospitalist Patient Name: Hanna Nelson : 1940 Room / Bed : [facility]/412-1 Facitily : [facility] Date of Service: 10/18/2020 CSN: [id number] Admit Date: 10/15/2020 11:16 PM Attending Physician: [...] nares is negative, wound care, consult Dr. Ray Atrial fibrillation with RVR: Likely secondary to [...] Juan M Quick MD 25 mg at 10/18/20 [...] Augusta Weston APRN 5 mg at 10/18/20 0926 aspirin (ASA EC) enteric coated tablet 81 mg 81 mg Oral daily Augusta Weston APRN 81 mg at 10/18/20 09 AtorvaSTATin (LIPITOR) tablet 20 mg 20 mg Oral daily Augusta Weston APRN 20 mg at 10/18/20 09 fenofibrate nanocrystallized (TRICOR) tablet 145 mg 145 mg Oral daily Augusta Weston APRN 145 mg at 10/18/20 09 fluticasone propionate (FLONASE) nasal spray 2 Delano 2 Delano Each Nostril daily Augusta Weston APRN 2 Delano at 10/17/20 0852 vitamins multiple therapeutic w/ minerals (THERAGRAN-M) tablet 1 Tab 1 Tab Oral daily Augusta Weston APRN 1 Tab at 10/18/20926 gabapentin (NEURONTIN) capsule 300 mg 300 mg Oral TID Augusta Weston APRN 300 mg at 10/18/20 09 levothyroxine (SYNTHROID) tablet 100 mcg 100 mcg [...] HS Augusta Weston APRN 1 Units at 10/18/20 0928 Objective Vital Signs: Temp: 99.3 F (37.4 C) (10/18/20 0800) Temp Min: 95.7 F (35.4 C) Min taken time: 10/17/201945 Max:99.9 F (37.7 C) Max taken time: 10/18/20724 BP: 110/71 (10/18/20 0800) Pulse: 115 (10/18/20 08)Resp: 20 (10/18/20799) SpO2: 97 % (10/18/20799) PHYSICAL [...] Reference Range = NOT DETECTED PERFORMED AT: [place], [place] ACCUCHECK GLUCOSE Collection Time: 10/17/20 10:58 [...] calf. DICTATED BY: SAIDA QUINTERO MD Workstation ID:[id number] DEXA BONE DENSITY SCAN AXIAL Result Date: 09/23/2020 09/23/2020 1:16 PM DXA BONE MINERAL DENSITY SCAN: INDICATION: Osteoporosis screening MACHINE: [employer] COMMENT: The bone mineral density (BMD) from [...] DICTATED BY: SHIRA DOS SANTOS MD Workstation ID:[id number] NM MYOCARDIAL PERFUSION IMAGING Result Date: 10/04/2020 [...] or subluxation. Dictated by Conrad Pineda M.D.Workstation ID:[id number] CT EXTREMITY LOWER RIGHT WITHOUT CONTRAST Result [...] healed remote trauma. DICTATEDBY: Conrad Pineda M.D.Workstation ID:[id number] MAMMOGRAPHY SCREEN BILATERAL WITH CAD Result Date: 09/23/2020 #[id number] - MAMMOGRAPHY SCREEN BILATERAL WITH CAD DIGITAL SCREENING MAMMOGRAM WITH CAD: 09/23/2020 INDICATIONS: The patient is asymptomatic. Comparison is made to exam dated: 07/17/2019 mammogram - [facility]. There are scattered areas of fibroglandular [...] venous thrombosis. Dictated byConrad Pineda M.D. Workstation ID:[id number] CT HEAD (URGENT-ANTICOAGULATED HEAD INJURY PATIENT) Result [...] SUBTLE LESION. DICTATED BY LOREN SALCIDO M.D.Workstation ID:[id number] STRESS TEST EKG WITH NM IMAGING Result Date: 10/04/2020 Nicholas Lemon, DO 10/04/2020 11:52 AM [facility] CARDIAC LEXISCAN STRESS TEST EKG PORTION [...] original note were not included. [facility] Progress Note 10/17/2020 Patient Identifier/Hospitalist Patient: [...] 12:59 PM SW spoke with Herman from [facility] who states patient is appropirate and they can accept at discharge.Per in [facility] patient ready for d/c in next 1-2 days. AVS complete to [facility]. SW will follow for transfer to [facility] at discharge. Electronically signed by: FELICITA Serrano LISW-S, 10/17/2020 1:00 PM * iMchael Gaspar RN - 10/17/2020 11:48 AM EST Per huddle discussion, pt plan is to go to [facility] at discharge. No home care arranged. Electronically [...] Pt states that she has been to [facility] in the past and would prefer placement there. SW discussed possible SNF if [facility] is unable to accept, but pt prefers to get answer from [facility] before considering. Referral sent, awaiting reply. Electronically signed by: FELICITA Moran LISW-S, [id number], 10/16/2020, 12:55 PM Saturday-Saturday Office Hours: 8:30am-5:00pm Holiday/Weekends: [phone] Urgent needs between 5P-7P every day: [phone] * Indu Vega RN - 10/16/2020 11:48 AM EST ICM Admit Note: Presents for evaluation/treatment of cellulitis. History of A- fib- on Eliquis, HTN,DM,PVD Met with Hannavictorino Nelson who is a 80 year old female at bedside. Introduced self and role of case managers; asked for and received permission to discuss discharge planning with visitors present in room. Discussed current living situation/dc plans. Patient lives alone Baseline Activity: Independent Current DME Equipment:DME: 4 wheeled walker, Blood glucose meter/supplies PCP Name : Lisy Pace [phone] Pharmacy: [facility] Patient/family informed that a follow-up appointment may be made with PCP/Surgeon and time/date will be listed on discharge paperwork. Pt verbalized understanding through teach back. Met with patient to discuss Bundle Payment for Care Improvement (BPCI) and letter given. Patient verbalized understanding, copy left with patient. yes [facility]/IM Document Type Received On Received By Description [facility] IM Copy of Signed 10/16/20 Indu [...] and readiness for discharge. Indu Castle RNC,CCM,BSN [employer] Employee, Phone [phone] 10/16/2020 11:49 AM Office Hours: 8:30-5:00. For urgent needs between 5p-7p, please call [phone]. If after 7pm, please call [facility] at [phone] or [facility] at [phone]. * Anna Berry RN - 10/16/2020 9:37 AM EST Patient Hanna Nelson identified/referral received from : [facility] List Patient identified for home health-not arranged at this time. Patient to be assessed by [facility] for potential home care needs. Electronically signed by: Anna Lindquist RN, 10/16/2020 9:37 AM * Emilie Razo [facility] - 10/16/2020 8:16 AM EST [facility] Pharmacy Vancomycin Referral Referral Date: 10/16/2020 Referring [...] by: Emilie Razo RPH, 10/16/2020 8:18 AM [phone] documented in this encounter Summary Purpose Family History No Family History Records FoundNo Family History Records FoundNo Family History Records FoundNo Family History Records FoundNo Family History Records FoundNo Family History Records Found Chief Complaint and Reason for Visit Chief Complaint Admit Date LABWORK March 29, 2025 5: 00am LABWORK March 31, 2025 5: 00am LABWORK April 07, 2025 5: 00am LABWORK April 19, 2025 5:00am altered mental status May 31, 2025 2:21pm [facility] WORK June 07, 2025 4:00am Additional Source Comments Reason for Visit (unrecogniz [...] NM MYOCARDIAL PERFUSION IMAGING Brian Wilson MD [address] [place] [address] 19804 Reason Comments Injury Status Reason Specialty Diagnoses / Procedures Referre d By Contact Referred To Contact Diagnoses Cellulitis Reason Comments Cellulitis Specialty Diagnoses / Procedures Referred By Twan t Referred To Contact Diagnoses Cellulitis of right lower leg Referral ID Status Reason Start Date Expiration Date Visits Re quested Visits Authorized [id number] 1 1 Reason Comments Hyperglycemia Reason Comments Hyperglycemia Pt comes in today af ter being seen at [facility] yesterday for high sugar above 600 pt states she was able to get under 400 and was sent home yesterday but now pt states her sugar is high again and wont read on the monitor. Pt is alert and oriented but seems lethargic pts bgl is 535 Specialty Diagnoses / Procedures Referred By Twan t Referred To Contact Diagnoses Hyperkalemia Urinary tract infection without hematuria, site unspecified Uncontrolled type 2 diabetes mellitus with hyperglycemia (HCC) Procedures . Fish Montes MD [address] [place] [address] Phone: tel: fax: 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, with necrosis of muscle (HCC) Procedures [place] OFFICE/OUTPATIENT NEW HIGH MDM 60 MINUTES Lauren Castanon K, LAPIDARIST - PSYCHOLOGIST PRIVATE PRACTICE [address] [place] [address] [place] [address] Phone: tel: fax: [facility] Wound Care & Hyperbaric Oxygen Therapy - [address] [address] Referral ID Status Reason Start Date Expiration Date V isits Requested Visits Authorized [id number] Closed Specialty Services Required 09/21/2024 09/21/2025 1 1 Reason Comments Wound Care Reason Comments Memory Loss Specialty Diagnoses / Procedures Referred By Twan t Referred To Contact Geriatric Medicine Diagnoses Mild cognitive impairment of uncertain or unknown etiology Procedures new patient appointment [place] [address] Phone: tel: fax: [facility] [address] [place] [address] Phone: tel: fax: Referral ID Status Reason Start Date Expiration Date Visits Re quested Visits Authorized [id number] Closed 10/05/2024 04/03/2025 1 1 Reason Onset Date Comments Other 10/29/2024 Reason Onset Date Comments Hospital Follow-up 09/21/2024 Reason Comments Wound Check Reason Comments Altered Mental Status Specialty Diagnoses / Procedures Referred By Twan t Referred To Contact Diagnoses Confusion Cystitis Right arm weakness Procedures 0 Karolina Cooper MD [address] [place] [address] Phone: tel: fax: [facility] Cardiac Progressive Care Unit PCU [address] [place] [address] Phone: tel: Referral ID Status Reason Start Date Expiration Date Visits Re quested Visits Authorized [id number] 1 1 Reason Onset Date Comments Other 12/16/2024 Reason Comments Follow-up Diabetes Reason Comments Illness Generally not feelin g well Specialty Diagnoses / Procedures Referred By Twan t Referred To Contact Diagnoses Bacteremia SIRS (systemic inflammatory response syndrome) (HCC) Severe sepsis (HCC) Procedures 0 Patel Can MD [address] [place] [address] Phone: tel: fax: [facility] Cardiac Progressive Care Unit PCU [address] [place] [phone] Phone: tel: Referral ID Status Reason Start Date Expiration Date Visits Re quested Visits Authorized [id number] 1 1 Reason Comments Other Patient presents sta ting her PCP sent her in for elevated potassium. States they were told her potassium level was around 6. No other complaints or concerns. Patient denies CP/SOB. Patient a/o x 4. GCS 15. Specialty Diagnoses / Procedures Referred By Twan t Referred To Contact Diagnoses Atrial fibrillation with rapid ventricular response (HCC) Procedures 0 Patel Can MD [address] [place] [address] Phone: tel: fax: [facility] EMERGENCY DEPT [address] [place] [phone] Phone: tel: fax: Referral ID Status Reason Start Date Expiration Date Visits Re quested Visits Authorized [id number] 1 1 Reason Comments Fall Hip Pain Left hip pain Specialty Diagnoses / Procedures Referred By Contac t Referred To Contact Diagnoses Closed fracture of left hip, initial encounter ([facility]) Procedures .. Janet Houston DO [address] [place] [address] Phone: tel: fax: [facility] MAIN OR [address] [place] [address] Phone: tel: Referral ID Status Reason Start Date Expiration Date Visits Re quested Visits Authorized [id number] 1 1 Reason Onset Date Comments Cancelled Appointment 04/14/2025 Nicholas Lemon, - 10/04/2020 7:30 AM EST Procedure Notes (unrecognize d section and content) Associated Order(s): STRESS TEST EKG WITH NM IMAGING [facility] CARDIAC LEXISCAN STRESS TEST EKG PORTION Procedure [...] the care of this patient along with LAPIDARIST . I have personally seen, examined the [...] Juan M Quick MD, 10/16/2020 12:27 PM [facility] History & Physical 10/16/2020 Patient Identifier/Hospitalist Patient Name: Hanna Nelson : 1940 I saw and examined the patient at 2:29 AM on 10/16/2020 Hospitalist: Augusta Weston, LAPIDARIST 7a-5p Disposition/Assessment and Plan Disposition: home in [...] hypothyroidism, diabetic foot ulcer who presents to [facility] s/p fall and complaints of generalized weakness [...] CAUDAL EPIDURAL BLOCK 09/02/2017 ECHO Historical 1987 [facility]- ? Why -Results Good EPIDURAL LUMBAR TRANSFORMINAL Left 03/25/2017 L3-L4 LAMINECTOMY DECOMPRESSION POSTERIOR 3 LEVEL N/A 10/22/2017 LAMINECTOMY DECOMPRESSION POSTERIOR 3 LEVEL performed by Adolfo Edwards MD at [facility] MAIN OR LIG/TRNSXJ FLP TUBE ABDL/VAG APPR UNI/BI Ligation or Transection of Fallopian Tubes, Unilat or Bilat LUMBAR TRANSFORAMINAL EPIDURAL 04/29/2017 L4-L5 Other Surgical History Left 01/24/2015 Left Foot Metatarsal Head Bone Biopsy per Dr Ann Vasquez @ [facility] Other Surgical History Right 10/17/2015 Irigation W/Sharp Excisional Debridement Right Foot. 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 [place] [facility] Lo[place] [facility] Other Surgical History 2009 Fractured Hip REMOVAL GALLBLADDER ~1970 [facility] WOUND VAC APPLICATION/CHANGE N/A 10/22/2017 WOUND VAC APPLICATION/CHANGE performed by Adolfo Edwards MD at [facility] MAIN OR Social History Socioeconomic History Marital [...] Social Gatherings with Friends and Family: Attends [employer] Services: Active Member of Clubs or Organizations: Attends Club or Organization Meetings: Marital Status: Intimate Partner Violence: Fear of Current or Ex-Partner: Emotionally Abused: Physically Abused: Sexually Abused: Family History Problem Relation Age of Onset Diabetes Father Heart Disease Father [place] Hypertension Father Cancer Father Prostate No Known Problems Mother No Known Problems Sister Allergies: Allergies Allergen Reactions Tape 1"X5yd [Adhesive Tape] Rash Redness. Avoids. Prefers paper tape Home Medications: No outpatient medications have been marked as taking for the 10/15/20 encounter (Hospital Encounter). 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 Dictated by Conrad Pineda M.D.Workstation ID:[id number] CT EXTREMITY LOWER RIGHT WITHOUT CONTRAST Result [...] remote trauma. DICTATED BY: Conrad Pineda M.D.Workstation ID:[id number] MAMMOGRAPHY SCREEN BILATERAL WITH CAD Result Date: 09/23/2020 #[id number] - MAMMOGRAPHY SCREEN BILATERAL WITH CAD DIGITAL SCREENING MAMMOGRAM WITH CAD: 09/23/2020 INDICATIONS: The patient is asymptomatic. Comparison is made to exam dated: 07/17/2019 mammogram - [facility]. There are scattered areas of fibroglandular density [...] thrombosis. Dictated by Conrad Pineda M.D. Workstation ID:[id number] CT HEAD (URGENT-ANTICOAGULATED HEAD INJURY PATIENT) Result [...] SUBTLE LESION. DICTATED BY LOREN SALCIDO M.D.Workstation ID:[id number] STRESS TEST EKG WITH NM IMAGING Result Date: 10/04/2020 Nicholas Lemon DO 10/04/2020 11:52 AM [facility] CARDIAC LEXISCAN STRESS TEST EKG PORTION [...] Lindsey Peña RN - 10/21/2020 7:48 PM ESTRLindsey angulo RN - 10/21/2020 7:24 PM Lindsey Galindo RN - 10/21/2020 3:40 PM Lindsey Galindo RN - 10/21/2020 2:15 PM EST Nursing Notes (unrecognized section and content) Patient discharged with [facility] via stretcher around 1930. Paperwork and belongings and medications script given to [facility]. Report called to nurse Natalia at [facility]. All questions answered. PICC Line removed at [...] bedpan completely. This RN passed on to shift lab technician nurse Mlivia that patient still needs urine sample. Received [...] of Onset Diabetes Father Heart Disease Father [place] Hypertension Father Cancer Father Prostate No Known [...] Social Gatherings with Friends and Family: Attends [employer] Services: Active Member of Clubs or Organizations: Attends Club or Organization Meetings: Marital Status: Intimate Partner Violence: Fear of Current or Ex-Partner: Emotionally Abused: Physically Abused: Sexually Abused: SURGICAL HISTORY: Past Surgical History: Procedure Laterality Date CARDIAC STRESS TST,COMPLETE 08/01/2017 MVS- Irregular Heart Beat- Results Negative-EF>70% CAUDAL EPIDURAL BLOCK 09/02/2017 ECHO Historical 1987 [facility]- ? Why -Results Good EPIDURAL LUMBAR TRANSFORMINAL Left 03/25/2017 L3-L4 LAMINECTOMY DECOMPRESSION POSTERIOR 3 LEVEL N/A 10/22/2017 LAMINECTOMY DECOMPRESSION POSTERIOR 3 LEVEL performed by Adolfo Edwards MD at [facility] MAIN OR LIG/TRNSXJ FLP TUBE ABDL/VAG APPR UNI/BI Ligation or Transection of Fallopian Tubes, Unilat or Bilat LUMBAR TRANSFORAMINAL EPIDURAL 04/29/2017 L4-L5 Other Surgical History Left 01/24/2015 Left Foot Metatarsal Head Bone Biopsy per Dr Ann Vasquez @ [facility] Other Surgical History Right 10/17/2015 Irigation W/Sharp Excisional Debridement Right Foot. 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 [facility] Other Surgical History 2009 Fractured Hip REMOVAL GALLBLADDER ~1970 [facility] WOUND VAC APPLICATION/CHANGE N/A 10/22/2017 WOUND VAC APPLICATION/CHANGE performed by Adolfo Edwards MD at [facility] MAIN OR CURRENT MEDICATIONS: No current facility-administered [...] remote trauma. DICTATED BY: Conrad Pineda M.D.Workstation ID:[id number] CT SPINE CERVICAL WITHOUT CONTRAST Final Result IMPRESSION: Multilevel degenerative changes without fracture or subluxation. Dictated by Conrad Pineda M.D.Workstation ID:[id number] CT HEAD (URGENT-ANTICOAGULATED HEAD INJURY PATIENT) Final Result IMPRESSION: 1. NO ACUTE INTRACRANIAL HEMORRHAGE OR MASS EFFECT. NO DEPRESSED CALVARIAL FRACTURE. 2. STABLE-APPEARING MILD PRESUMED CHRONIC SMALL VESSEL ISCHEMIC CHANGES. MRI HAS IMPROVED SENSITIVITY FOR RECENT INFARCT OR SUBTLE LESION. DICTATED BY LOREN SALCIDO M.D.Workstation ID:[id number] XR LEG TIBIA / FIBULA RIGHT 2 [...] come into ED. Denies pain currently. Bed: [facility] [place] [place] Expected date: Expected time: Means of arrival: [...] TOTAL NUTRIENT NEEDS: Total Calorie Needs (kcal): 5837-9901([address] St jeor x 1.1 - 1.25 stress factor) Total Protein Needs (gms): 90-99(1.0 gm/kg - 1.1 gm/kg ) SIGNATURE: Hanna Benton DTR Office number: [phone] *Please note: Serum albumin and prealbumin are no longer recognized as reliable or specific biomarkers for malnutrition. Ann Morataya., Omar, R. R. and Bin Arambula (2019), Hypoalbuminemia: Pathogenesis and Clinical Significance. Journal of Parenteral and Enteral Nutrition, 43: 181-193. Aurora Huizar (2016). AND Pocket Guide to Nutrition Assessment. (3rd ed., pp. 104-108). [place], [place]: Academy of Nutrition and Dietetics. Please [...] all mobility. Encourage [place] [facility] (pain limiting) with 1 [...] a 80 year old female admitted to [facility] on 10/15/[address] Quick H&P [...] CAUDAL EPIDURAL BLOCK 09/02/2017 ECHO Historical 1987 [facility]- ? Why -Results Good EPIDURAL LUMBAR TRANSFORMINAL Left 03/25/2017 L3-L4 LAMINECTOMY DECOMPRESSION POSTERIOR 3 LEVEL N/A 10/22/2017 LAMINECTOMY DECOMPRESSION POSTERIOR 3 LEVEL performed by Adolfo Edwards MD at [facility] MAIN OR LIG/TRNSXJ FLP TUBE ABDL/VAG APPR UNI/BI Ligation or Transection of Fallopian Tubes, Unilat or Bilat LUMBAR TRANSFORAMINAL EPIDURAL 04/29/2017 L4-L5 Other Surgical History Left 01/24/2015 Left Foot Metatarsal Head Bone Biopsy per Dr Ann Vasquez @ [facility] Other Surgical History Right 10/17/2015 Irigation W/Sharp Excisional Debridement Right Foot. 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-PAC 6 Clicks Basic Mobility Inpatient Short Form [...] me with any questions. 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 [...] rehabilitation Eval Complexity: OT Eval Complexity: Moderate (62739) Therapy Session Information: Referral Date/Order: Last order of OT EVALUATION + TREATMENT was found on 10/16/2020 from Hospital Encounter on 10/15/2020 Order: OT Evaluate and Treat Time In: 823 Time Out: 907 Total Time: (44 mins) Total time-based code treatment time: 34 minutes Pt was accompanied by: son RN, Della informed of evaluation and treatment this date. 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 Fall History: Pt reports 1 falls in the last 6 months, reason for admission. Housing Environment: Number of floors: 2 (pt says on 1) Number of entry steps: 1 Bathroom setup: walk-in shower Home Equipment: cane, FWW, tall commode, shower grab bars SUBJECTIVE: Patient and/or Caregiver States: "I drive up to my sons in [place] a lot and stay with them" Patient and/or Caregiver Goal: Return to PLOF Pain Rating/Location: 10, in headache and RLE; Action Taken to [...] activity promotion to increase/maintain independence with ADLs. [facility] AM-PAC 6 clicks V.2 Daily Activity [...] was agreed upon by: Patient and Family SHORT/[facility] GOALS (to be achieved by time of [...] to prior living situation. 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 [...] Care Teams (unrecognized sec tion and content) Service Girl Relationship Specialty Start Date End Date Lisy Pace MD [address] [place] [address] PCP - General Family Practice 06/17/19 Zandra Phan RN 07/07/09 Jalil Cuevas, [place] [address] 07/07/09 Samuel Roca, PT Physical Therapy 08/17/11 Martita Navarro, MA-Cred 02/11/12 Service Girl Relationship Specialty Start Date End Date Lisy Pace MD [address] [place] [address] PCP - General Family Practice 06/17/19 Zandra Phan RN 07/07/09 Jalil Cuevas, [place] [address] 07/07/09 Samuel Roca, PT Physical Therapy 08/17/11 Martita Navarro, MA-Cred 02/11/12 Service Girl Relationship Specialty Start Date End Date Lisy Pace MD [address] [place] [address] PCP - General Family Practice 06/17/19 Zandra Phan RN 07/07/09 Jalil Cuevas, [place] [address] 07/07/09 Samuel Roca, PT Physical Therapy 08/17/11 Martita Navarro, MA-Cred 02/11/12 Service Girl Relationship Specialty Start Date End Date Lisy Pace MD [address] [place] [address] PCP - General Family Practice 06/17/19 Zandra Phan RN 07/07/09 Jalil Cuevas, [place] [address] 07/07/09 Samuel Roca, PT Physical Therapy 08/17/11 Martita Navarro, MA-Cred 02/11/12 Service Girl Relationship Specialty Start Date End Date Lisy Paec MD [address] [place] [address] PCP - General Family Practice 06/17/19 Zandra Phan RN 07/07/09 Jalil Cuevas, [place] [address] 07/07/09 Samuel Roca, PT Physical Therapy 08/17/11 Martita Navarro, MA-Cred 02/11/12 Service Girl Relationship Specialty Start Date End Date Lisy Pace MD [address] [place] [address] PCP - General Family Practice 06/17/19 Zandra Phan RN 07/07/09 Jalil Cuevas, RN [facility] [address] 07/07/09 Samuel Roca, PT Physical Therapy 08/17/11 Martita Navarro, MA-Cred 02/11/12 Service Girl Relationship Specialty Start Date End Date Lisy Pace MD [address] [place] [address] PCP - General Family Practice 06/17/19 Zandra Phan RN 07/07/09 Jalil Cuevas, RN [facility] [address] 07/07/09 Samuel Roca, PT Physical Therapy 08/17/11 Martita Navarro, MA-Cred 02/11/12 Service Girl Relationship Specialty Start Date End Date Lisy Pace MD [address] [place] [address] PCP - General Family Practice 06/17/19 Zandra Phan, KENNA 07/07/09 Jalil Cuevas, [place] [address] 07/07/09 Samuel Roca, PT Physical Therapy 08/17/11 Martita Navarro, MA-Cred 02/11/12 Service Girl Relationship Specialty Start Date End Date Lisy Pace MD [address] [place] [address] PCP - General Family Practice 06/17/19 Zandra Phan RN 07/07/09 Jalil Cuevas, RN [facility] [address] 07/07/09 Samuel Roca, PT Physical Therapy 08/17/11 Martita Navarro, MA-Cred 02/11/12 Service Girl Relationship Specialty Start Date End Date Lisy Pace MD [address] [place] [address] PCP - General Family Practice 06/17/19 Zandra Phan RN 07/07/09 Jalil Cuevas, RN [facility] [address] 07/07/09 Samuel Roca, PT Physical Therapy 08/17/11 Martita Navarro, MA-Cred 02/11/12 Service Girl Relationship Specialty Start Date End Date Lisy Pace MD [address] [place] [address] PCP - General Family Practice 06/17/19 Zandra Phan RN 07/07/09 Jalil Cuevas, [place] [facility] [address] 07/07/09 Samuel Roca, PT Physical Therapy 08/17/11 Martita Navarro, MA-Cred 02/11/12 Service Girl Relationship Specialty Start Date End Date Lisy Pace MD [address] [place] [address] PCP - General Family Practice 06/17/19 Zandra Phan, KENNA 07/07/09 Jalil Cuevas, [place] [address] 07/07/09 Samuel Roca, PT Physical Therapy 08/17/11 Martita Navarro, MA-Cred 02/11/12 Service Girl Relationship Specialty Start Date End Date Lisy Pace MD [address] [place] [address] PCP - General Family Practice 06/17/19 Zandra Phan, KENNA 07/07/09 Jalil Cuevas, [place] [address] 07/07/09 Samuel Roca, PT Physical Therapy 08/17/11 Martita Navarro, MA-Cred 02/11/12 Service Girl Relationship Specialty Start Date End Date Lisy Pace MD [address] [place] [address] PCP - General Family Practice 06/17/19 Zandra Phan RN 07/07/09 Jalil Cuevas, [place] [address] 07/07/09 Samuel Roca, PT Physical Therapy 08/17/11 Martita Navarro, MA-Cred 02/11/12 Service Girl Relationship Specialty Start Date End Date Lisy Pace MD [address] [place] [address] PCP - General Family Practice 06/17/19 Zandra Phan RN 07/07/09 Jalil Cuevas, [place] [address] 07/07/09 Samuel Roca, PT Physical Therapy 08/17/11 Martita Navarro, MA-Cred 02/11/12 Service Girl Relationship Specialty Start Date End Date Lisy Pace MD [address] [place] [address] PCP - General Family Practice 06/17/19 Zandra Phan RN 07/07/09 Jalil Cuevas, RN [facility] [address] 07/07/09 Samuel Roca, PT Physical Therapy 08/17/11 Martita Navarro, MA-Cred 02/11/12 Service Girl Relationship Specialty Start Date End Date Lisy Pace MD [address] [place] [address] PCP - General Family Practice 06/17/19 Zandra Phan RN 07/07/09 Jalil Cuevas, RN [facility] [address] 07/07/09 Samuel Roca, PT Physical Therapy 08/17/11 Martita Navarro, MA-Cred 02/11/12 Service Girl Relationship Specialty Start Date End Date Lisy Pace MD [address] [place] [address] PCP - General Family Practice 06/17/19 Zandra Phan RN 07/07/09 Jalil Cuevas, [place] [facility] [address] 07/07/09 Samuel Roca, PT Physical Therapy 08/17/11 Martita Navarro, MA-Cred 02/11/12 Service Girl Relationship Specialty Start Date End Date Lisy Pace MD [address] [place] [address] PCP - General Family Practice 06/17/19 Zandra Phan RN 07/07/09 Jalil Cuevas, RN [facility] [address] 07/07/09 Samuel Roca, PT Physical Therapy 08/17/11 Martita Navarro, MA-Cred 02/11/12 Service Girl Relationship Specialty Start Date End Date Lisy Pace MD [address] [place] [address] PCP - General Family Practice 06/17/19 Zandra Phan RN 07/07/09 Jalil Cuevas, RN [facility] [address] 07/07/09 Samuel Roca, PT Physical Therapy 08/17/11 Martita Navarro, MA-Cred 02/11/12 Service Girl Relationship Specialty Start Date End Date Lisy Pace MD [address] [place] [address] PCP - General Family Practice 06/17/19 Zandra Phan RN 07/07/09 Jalil Cuevas, [place] [facility] [address] 07/07/09 Samuel Roca, PT Physical Therapy 08/17/11 Martita Navarro, MA-Cred 02/11/12 Service Girl Relationship Specialty Start Date End Date Lisy Pace MD [address] [place] [address] PCP - General Family Practice 06/17/19 Zandra Phan RN 07/07/09 Jalil Cuevas, RN [facility] [address] 07/07/09 Samuel Roca, PT Physical Therapy 08/17/11 Martita Navarro, MA-Cred 02/11/12 Service Girl Relationship Specialty Start Date End Date Lisy Pace MD [address] [place] [address] PCP - General Family Practice 06/17/19 Zandra Phan RN 07/07/09 Jalil Cuevas, RN [facility] [address] 07/07/09 Samuel Roca, PT Physical Therapy 08/17/11 Martita Navarro, MA-Cred 02/11/12 Service Girl Relationship Specialty Start Date End Date Lisy Pace MD [facility] [place] [address] PCP - General Family Practice 06/17/19 Zandra Phan RN 07/07/09 Jalil Cuevas, [place] [address] 07/07/09 Samuel Roca, PT Physical Therapy 08/17/11 Martita Navarro MA-Lorena 02/11/12 Service Girl Relationship Specialty Start Date End Date Marcela, Dorothy [address], [phone] PCP - General Family Medicine 10/14/24 Service Girl Relationship Specialty Start Date End Date Marcela Dorothy [address] [place] [phone] PCP - General Family Medicine 10/14/24 Service Girl Relationship Specialty Start Date End Date Marcela Dorothy [address] [place] [phone] PCP - General Family Medicine 10/14/24 Service Girl Relationship Specialty Start Date End Date Marcela Dorothy [address] [place] [phone] PCP - General Family Medicine 10/14/24 Service Girl Relationship Specialty Start Date End Date Dorothy Medrano [address] [place] [phone] PCP - General Family Medicine 10/14/24 Service Girl Relationship Specialty Start Date End Date Dorothy Medrano [address] [place] [phone] PCP - General Family Medicine 10/14/24 Service Girl Relationship Specialty Start Date End Date Dorothy Medrano [address] [place] [phone] PCP - General Family Medicine 10/14/24 Service Girl Relationship Specialty Start Date End Date Dorothy Medrano [address] [place] [address] PCP - General Family Medicine 10/14/24 Service Girl Relationship Specialty Start Date End Date Dorothy Medrano [address], [phone] PCP - General Family Medicine 10/14/24 Service Girl Relationship Specialty Start Date End Date Dorothy Medrano [address] [place] [phone] PCP - General Family Medicine 10/14/24 Service Girl Relationship Specialty Start Date End Date Dorothy Medrano [address] [place] [phone] PCP - General Family Medicine 10/14/24 Service Girl Relationship Specialty Start Date End Date Dorothy Medrano [address] [place] [phone] PCP - General Family Medicine 10/14/24 Service Girl Relationship Specialty Start Date End Date Dorothy Medrano [address] [place] [phone] PCP - General Family Medicine 10/14/24 Service Girl Relationship Specialty Start Date End Date Dorothy Medrano [address] [place] [phone] PCP - General Family Medicine 10/14/24 Service Girl Relationship Specialty Start Date End Date Dorothy Medrano [address] [place] [phone] PCP - General Family Medicine 10/14/24 Service Girl Relationship Specialty Start Date End Date Dorothy Medrano [address], [phone] PCP - General Family Medicine 10/14/24 Service Girl Relationship Specialty Start Date End Date Dorothy Medrano [address] [place] [phone] PCP - General Family Medicine 10/14/24 Service Girl Relationship Specialty Start Date End Date Dorothy Medrano [address] [place] [phone] PCP - General Family Medicine 10/14/24 Service Girl Relationship Specialty Start Date End Date Dorothy Medrano [address] [place] [phone] PCP - General Family Medicine 10/14/24 Service Girl Relationship Specialty Start Date End Date Dorothy Medrano [address] [place] [phone] PCP - General Family Medicine 10/14/24 Team Status: Active Member Role/Relationship Status Dates Dr. Prasanna Parra Sr. , DO Primary care physician Activ e Team Status: Active Member Role/Relationship Status Dates Prasanna PABLO MD Attending physician Active Start: March 29, 2025 Team Status: Active Member Role/Relationship Status Dates Prasanna PABLO MD Attending physician Active Start: March 31, 2025 Team Status: Active Member Role/Relationship Status Dates Prasanna PABLO MD Attending physician Active Start: April 07, 2025 Team Status: Active Member Role/Relationship Status Dates Prasanna PABLO MD Attending physician Active Start: April 19, 2025 Team Status: Inactive Member Role/Relationship Status Dates Dr. Spenser Grande MD Attending physician Active St art: May 31, 2025 End: May 31, 2025 Dr. Spenser Grande MD Emergency Department Physician Active Start: May 31, 2025 End: May 31, 2025 Dr. Prasanna Parra Sr. , DO Primary care physician Activ e Start: May 31, 2025 End: May 31, 2025 Team Status: Active Member Role/Relationship Status Dates Dr. Prasanna Parra Sr. , DO Primary care physician Activ e Start: June 01, 2025 Prasanna PABLO MD Attending physician Active Start: June 01, 2025 Team Status: Active Member Role/Relationship Status Dates Dr. Prasanna Parra Sr. , DO Primary care physician Activ e Start: June 04, 2025 Prasanna PABLO MD Attending physician Active Start: June 04, 2025 Team Status: Active Member Role/Relationship Status Dates Dr. Prasanna Parra Sr. , DO Primary care physician Activ e Start: June 07, 2025 Prasanna PABLO MD Attending physician Active Start: June 07, 2025 Prasanna PABLO MD Referring Provider Active S tart: June 07, 2025 INFORMATION SOURCE (unrecogn ized section and content) DATE CREATED AUTHOR 10/01/2021 [facility] Glendy Gerene DATE CREATED AUTHOR AUTHOR'S ORGANIZ ATION 03/22/2024 [facility] DATE CREATED AUTHOR AUTHOR'S ORGANIZ ATION 05/24/2024 Provider Locatio [facility] DATE CREATED AUTHOR AUTHOR'S ORGANIZ ATION 05/25/2024 [employer] DATE CREATED AUTHOR AUTHOR'S ORGANIZ ATION 05/01/2025 [facility] DATE CREATED AUTHOR AUTHOR'S ORGANIZ ATION 06/16/2025 [facility] Source Comments (unrecognize d section and content) In the event this informatio n is protected by the Federal Confidentiality of Alcohol and Drug Abuse Patient Records regulations: The Federal rules restrict any use of the information to criminally investigate or prosecute any alcohol or drug abuse patient.[facility] the event this information is protected by the Federal Confidentiality of Alcohol and Drug Abuse Patient Records regulations: The Federal rules restrict any use of the information to criminally investigate or prosecute any alcohol or drug abuse patient.[facility] Scheduled Active and Recently Administ ered Medications (unrecognized section and content) Medication Order 11/10/2023 11/11/2023 11/12/2023 amLODIPine (NORVASC) tablet 5 mg 5 mg, Oral, DAILY, First dose on Sat11/11/23 at 0900, Until Discontinued 929 (Given - Provider: Lidia Lundy RN) 908 (Given - Provider: Gin Kay RN) apixaban (ELIQUIS) tablet 5 mg 5 mg, Oral, *TWO TIMES A DAY, First dose on Sat11/10/23 at 2100, Until Discontinued, Indications: atrial fibrillation 2037 (Given - Provider: Estevan Oswald RN) 930 (Given - Provider: Lidia Lundy RN)2142 (Given - Provider: Bridget Downing RN) 0909 (Given - Provider: Gin Kay, KENNA)2100 (Due) atenoloL (TENORMIN) tablet 50 mg 50 mg, Oral, TWO TIMES A DAY, First dose on Sat11/10/23 at 2000, Until Discontinued 2037 (Given - Provider: Estevan Oswald RN) 0931 (Given - Provider: Lidia Lundy RN)1700 (Given - Provider: Lidia Lundy RN) 09 (Given - Provider: Gin Kay RN)1700 (Due) AtorvaSTATin (LIPITOR) tablet 40 mg 40 mg, Oral, DAILY, First dose on Sat11/11/23 at 0900, Until Discontinued 929 (Given - Provider: Lidia Lundy RN) 09 (Given - Provider: Gin Kay RN) ceFAZolin (ANCEF) 2 g in Dextrose 50 ml IVPB (PREMIX) 2 g, Intravenous, at 100 mL/hr, Administer over 30 Minutes, EVERY 8 HOURS, First dose on Sat11/11/23 at 2100, Until Discontinued, Indications: CELLULITIS / SSTI 2140 (New Bag - Provider: Bridget Downing RN) 0600 (New Bag - Provider: Bridget Downing RN)1316 (New Bag - Provider: Gin Kay RN)2200 (Due) cefepime (MAXIPIME) 2 g in D5W 50 ml (PREMIX) (CANCELED) 2 g, Intravenous, at 12.5 mL/hr, Administer over 240 Minutes, EVERY 12 HOURS, First dose on Sat11/11/23 at 0900, Until Discontinued, Indications: CELLULITIS / SSTI 0932 (New Bag - Provider: Lidia Lundy RN) cefTRIAXone (ROCEPHIN) 2 g in D5W 50 ml IVPB (PREMIX) (COMPLETED) 2 g, Intravenous, at 100 mL/hr, Administer over 30 Minutes, NOW, 1 dose, On Sat11/10/23 at 1730, Indications: CELLULITIS / SSTI, SEPSIS SYNDROME 1806 (New Bag - Provider: Pinky Martinez RN)1852 (Stopped - Provider: Pinky Martinez RN) doxycycline MONOhydrate (MONODOX) capsule 100 mg 100 mg, Oral, EVERY 12 HOURS, First dose on Sat11/11/23 at 1415, Until Discontinued, Indications: CELLULITIS / SSTI 1322 (Given - Provider: Lidia Lundy RN)2142 (Given - Provider: Bridget Downing RN) 908 (Given - Provider: Gin Kay RN)2099 (Due) fenofibrate nanocrystallized (TRICOR) tablet 145 mg 145 mg, Oral, DAILY, First dose on Sat11/11/23 at 0900, Until Discontinued 930 (Given - Provider: Lidia Lundy RN) 908 (Given - Provider: Gin Kay RN) gabapentin (NEURONTIN) capsule 300 mg 300 mg, Oral, *TWO TIMES A DAY, First dose on 11/10/23 at 2100, Until Discontinued 2037 (Given - [...] Comment: one time order d/t BGL 406) 313 (Given - Provider: Estevan Oswald RN)930 (Given - Provider: Lidia Lundy RN)1322 (Given - Provider: Lidia Lundy, KENNA)1699 (Given - Provider: Ldiia Lundy RN)2144 (Given - Provider: Bridget Downing RN) 0233 (Not Given - Provider: Bridget Downing RN - Reason: Other (add comment) - Comment: Other amount given per Dr Caal order)0908 (Given - Provider: Gin Kay RN)1315 (Given - Provider: Gin Kay RN)1700 (Due)2200 (Due) insulin lispro (HumaLOG) injection 11 [...] dose on Sat11/11/23 at 0600, Until Discontinued 606 (Given - Provider: Estevan Oswald RN) 0555 (Given - Provider: Bridget Downing RN) multivitamin with folic acid (THERAGRAN) 400 mcg tablet 1 Tab 1 Tab, Oral, DAILY, First dose on Sat11/11/23 at 0900, Until Discontinued 930 (Given - Provider: Lidia Lundy RN) 09 (Given - Provider: Gin Kay RN) oxybutynin (DITROPAN XL) SR-tablet 10 mg 10 mg, Oral, DAILY, First dose on Sat11/11/23 at 0900, Until Discontinued 930 (Given - Provider: Lidia Lundy RN) 09 (Given - Provider: Gin Kay RN) saline flush IV Push, EVERY 12 HOURS, First dose on Sat11/10/23 at 2100, Until Discontinued 2036 (Given - Provider: Estevan Oswald RN) 0935 (Given - Provider: Lidia Lundy, RN)2205 (Given - Provider: Bridget Downing, KENNA) 09 (Given - Provider: Gin Kay, KENNA)2100 (Due) vancomycin (VANCOCIN) 1,500 mg in NaCl [...] 1 dose 1533 (Given - Provid er: Keisha Pleitez RN) insulin regular (HumuLIN R,NovoLIN R) [...] 0918 (Given - Provider: Sawyer Peoples RN) 0909 (Given - Provider: Sawyer Peoples RN) apixaban (Eliquis) tablet 5 mg 5 mg, Oral, 2 times daily, First dose on Sat09/18/24 at 2100, Anticoagulant 0907 (Given - Provider: Estiven Kay RN)2040 (Given - Provider: Celine Claudio RN) 0918 (Given - Provider: Sawyer Peoples RN)2033 (Given - Provider: Celine Claudio RN) 0909 (Given - Provider: Saywer Peoples RN) atenolol (Tenormin) tablet 50 mg 50 mg, Oral, Daily, First dose on Sat09/18/24 at 1855 0907 (Given - Provider: Estiven Kay RN) 0918 (Given - Provider: Sawyer Peoples RN) 0909 (Given - Provider: Sawyer Peoples RN) atorvastatin (Lipitor) tablet 40 mg 40 mg, Oral, Daily, First dose on Sat09/18/24 at 1855 0907 (Given - Provider: Estiven Kay RN) 0919 (Given - Provider: Sawyer Peoples RN) 09 (Given - Provider: Sawyer Peoples RN) ergocalciferol (Vitamin D2) capsule 1.25 mg 1.25 mg, Oral, Weekly, First dose on Sat09/24/24 at 0900, For 8 doses 0912 (Given - Provider: Sawyer Peopels RN) fenofibrate (Triglide) tablet 160 mg 160 mg, Oral, Daily, First dose on Sat09/18/24 at 1855, Substituted for Fenofibrate (Non-Formulary Dose). 0907 (Given - Provider: Estiven Kay RN) 0918 (Given - Provider: Sawyer Peoples RN) 0909 (Given - Provider: Sawyer Peolpes RN) gabapentin (Neurontin) capsule 300 mg 300 [...] (after last modification) on Sat09/22/24 at 2100 2040 (Given - Provider: Celine Claudio, KENNA) 2033 (Given - Provider: Celine Claudio RN) insulin glargine (Lantus) injection 30 Units 30 Units, SubCUTAneous, Nightly, First dose (after last modification) on Sat09/24/24 at 2100 insulin lispro (HumaLOG) pen injection [...] Sawyer Peoples RN)1219 (Given - Provider: Sawyer Peoples RN)1721 (Given - Provider: Sawyer Peoples RN) 0910 (Given - Provider: Sawyer Peoples RN)1212 (Given - Provider: Sawyer Peoples, KENNA)1700 (Canceled Entry - Provider: Automatic Discharge Provider [...] Sawyer Peoples RN)1219 (Given - Provider: Sawyer Peoples RN)1721 (Given - Provider: Sawyer Peoples RN) 0911 (Given - Provider: Sawyer Peoples RN)1212 (Given - Provider: Sawyer Peoples RN)1700 (Canceled Entry - Provider: Automatic Discharge Provider - Comment: Automatically canceled at discontinue of medication order) levothyroxine (Synthroid, Levoxyl) tablet 112 mcg 112 mcg, Oral, Daily before breakfast, First dose on Sat09/19/24 at 0600 0603 (Given - Provider: Marietta Dailey, KENNA) 0534 (Given - Provider: Celine Claudio, KENNA) 0614 (Given - Provider: Celine Claudio, RN) lisinopril tablet 20 mg 20 mg, Oral, Daily, First dose on Sat09/18/24 at 1855 0907 (Given - Provider: Estiven Kay RN) 0900 (Given - Provider: Sawyer Peoples, KENNA) 0909 (Given - Provider: Sawyer Peoples RN) trospium (Sanctura) tablet 20 mg 20 mg, Oral, 2 times daily before meals, First dose on 09/19/24 at 0700, Substituted for oxybutynin (DITROPAN); fesoterodine (TOVIAZ); darifenacin (ENABLEX); solifenacin (VESICARE); tolterodine IR (DETROL); tolterodine ER (DETROL LA). Give one hour before meals. 0603 (Given - Provider: Marietta Dailey RN)1617 (Given - Provider: Estiven Kay RN) 0535 (Given - Provider: Celine Claudio, KENNA)1720 (Given - Provider: Sawyer Peoples RN) 0614 [...] RN)2008 (Given - Provider: Dayna Jacques RN) 0847 (Given - Provider: Yanira Simmons, KENNA)2102 (Given - Provider: Leo Nelson, KENNA) 0847 (Given - Provider: Marielle Karalic, RN) atenolol (Tenormin) tablet 50 mg 50 mg, Oral, 2 times daily, First dose on [place] 12/03/24 at 0315 0320 (Given - Provider: Scott Aaron, RN)2008 (Given - Provider: Dayna Jacques RN) 0847 (Given - Provider: Yanira Simmons, KENNA)2102 (Given - Provider: Leo Nelson, RN) 0847 (Given - Provider: Marielle Scott, RN) atorvastatin (Lipitor) tablet 40 mg 40 mg, Oral, Daily, First dose on [place]ene[place] 12/03/24 at 0900 0814 (Given - Provider: Tiarra Vee RN) 0847 (Given - Provider: Yanira Simmons, KENNA) 0847 (Given - Provider: Marielle Scott, KENNA) cefTRIAXone (Rocephin) 1,000 mg in sodium chloride [...] RN) 2102 (New Bag - Provider: Leo Nelson, KENNA)2132 (Stopped - Provider: Leo Nelson, KENNA) cholecalciferol (Vitamin D-3) tablet 2,000 Units 2,000 Units, Oral, Daily, First dose on Sat12/05/24 at 0900 0847 (Given - Provider: Marielle Scott, KENNA) fenofibrate (Triglide) tablet 160 mg 160 mg, Oral, Daily, First dose on Renee 12/03/24 at 0900, Substituted for Fenofibrate (Non-Formulary Dose). 0814 (Given - Provider: Tiarra Vee RN) 0848 (Given - Provider: Yanira Simmons, KENNA) 0847 (Given - Provider: Marielle Scott, KENNA) gabapentin (Neurontin) capsule 300 mg (COMPLETED) 300 mg, Oral, Once, On Sat12/02/24 at 2350, For 1 dose 0210 (Given - Provider: Scott Aaron RN - Comment: pt had not arrived to [place], was ordered at [place].) gabapentin (Neurontin) capsule 300 mg 300 mg, Oral, 2 times daily, First dose on Sat12/03/24 at 2100 2008 (Given - Provider: Dayna Jacques RN) 0847 (Given - Provider: Yanira Simmons, KENNA)2102 (Given [...] Degludec (Tresiba) 2102 (Given - Provider: Leo Nelson RN) Insulin Lispro (Humalog) injection 0-12 Units (CANCELED)(Linked [...] Vee RN) 0847 (Given - Provider: Yanira Simmons, KENNA)1129 (Given - Provider: Yanira Simmons RN)1713 (Given - Provider: Yanira Simmons RN) 0848 (Given - Provider: Marielle Scott RN)1200 (Canceled Entry - Provider: Automatic Discharge Provider - Comment: Automatically canceled at discontinue of medication order) Insulin Lispro (Humalog) injection 12 Units 12 Units, SubCUTAneous, 3 times daily with meals, First dose (after last modification) on 12/05/24 at 0800 0848 (Given - Provider: [...] Yanira Simmons RN)1130 (Given - Provider: Yanira Simmons RN)1713 (Given - Provider: Yanira Simmons RN) levothyroxine [...] needed, low blood sugar, Starting on [place]ene[place] 12/03/24 at 0304, If blood glucose less than [...] mg, Oral, Nightly PRN, sleep, Starting on Renee 12/03/24 at 1719 2103 (Given - Provider: Leo Nelson RN) ondansetron (Zofran) injection 4 mg(Linked Group 3) 4 mg, IntraVENous, Every 6 hours PRN, nausea, vomiting, Starting on Renee 12/03/24 at 1157, 1st Line. Give IV if patient is unable to take orally. If inadequate response within 60 minutes, proceed to next-line agent or contact provider if no further options ordered. ondansetron ODT (Zofran-ODT) disintegrating tablet 4 mg(Linked Group 3) 4 mg, Oral, Every 8 hours PRN, nausea, vomiting, Starting on Renee 12/03/24 at 1157, 1st Line. If inadequate response [...] meals, First dose on Renee 12/03/24 at 0815, Medium Dose Correction Algorithm Glucose: [...] 8 hours PRN, nausea, vomiting, Starting on Renee 12/03/24 at 1157, 1st Line. If inadequate response within 60 minutes, proceed to next-line agent or contact provider if no further options ordered. Patient should allow tablet to dissolve on tongue. Do not remove from blister pack until just before administering. Or ondansetron (Zofran) injection 4 mgJump to med 4 mg, IntraVENous, Every 6 hours PRN, nausea, vomiting, Starting on Renee 12/03/24 at 1157, 1st Line. Give IV if patient is unable to take orally. If inadequate response within 60 minutes, proceed to next-line agent or contact provider if no further options ordered. Scheduled Medication Order 01/31/2025 02/01/2025 02/02/2025 ampicillin-sulbactam (Unasyn) 3,000 mg in sodium chloride 0.9 % 100 mL IVPB (Add-[place]) 3,000 mg, IntraVENous, at 200 mL/hr, Administer over 30 Minutes, Every 6 hours, First dose on Sat01/27/25 at 1315, For 26 doses, ADD-[place] bag, Suspected Indication (Select all that apply): Surgical Site Infection 0258 (New Bag - Provider: Marietta Mix RN)0358 (Stopped - Provider: Marietta Labraney, RN)0833 (New Bag - Provider: Carmen Fong RN)0905 (Stopped - Provider: Carmen Fong RN)1353 (New Bag - Provider: Carmen Fong RN)1423 (Stopped - Provider: Carmen Fong RN)1953 (New Bag - Provider: Kyara Blanco RN)2037 (Stopped - Provider: Kyara Blanco RN) 0223 (New Bag - Provider: Kyara Blanco RN)0307 (Stopped - Provider: Kyara Blanco RN)0828 (New Bag - Provider: Vance Swift RN)0913 (Stopped - Provider: Vance Siwft RN)1412 (New Bag - Provider: Vance Swift RN)1455 (Stopped - Provider: Vance Swift RN)2007 (New Bag - Provider: Tiarra Ross RN)212 (Stopped - Provider: Tiarra Ross RN) 0148 (New Bag - Provider: Tiarra Ross RN)0252 (Stopped - Provider: Tiarra Ross RN)0853 (New Bag - Provider: Vance Swift RN)0927 (Stopped - Provider: Vance Swift RN)1345 (New Bag - Provider: Vance Swift RN)1415 (Due: Stopped - Provider: Vance Swift RN) apixaban (Eliquis) tablet 5 mg 5 [...] RN)1999 (Given - Provider: Kyara Blanco RN) 0828 [...] Vance Swift RN)2007 (Given - Provider: Tiarra Ross, RN) 0853 (Given - Provider: Vance Swift, RN) insulin glargine (Lantus) injection 32 Units 32 Units, SubCUTAneous, Nightly, First dose on Sat01/26/25 at 2100, Do not hold without physician order. 2000 (Given - Provider: Kyara Blanco, RN) 2018 (Given - Provider: Tiarra Ross, RN) Insulin Lispro (Humalog) injection 0-12 Units 0-12 [...] parameters not met)1254 (Given - Provider: Vance Swift RN)1750 (Given - Provider: Vance Swift RN) 0748 (Not Given - Provider: Vance [...] Vance Swift RN)1750 (Given - Provider: Vance Swift RN) 0852 (Given - Provider: Vance Swift [...] at 0600 0601 (Given - Provider: Marietta Mix RN) 0542 (Given - Provider: Kyara Blanco, KENNA) 0545 (Given - Provider: Tiarra Ross RN) potassium chloride CR (Klor-Con M10) ER tablet 40 mEq (COMPLETED) 40 mEq, Oral, Once, On Sat02/02/25 at 1000, For 1 dose, Best given with food and plenty of water to minimize gastric irritation. Do not crush or chew. 1043 (Given - Provider: Vance Swift RN) sodium chloride 0.9% (NS) flush 5-40 mL [...] mL/lumen 0834 (Given - Provider: Carmen Fong, KENNA)2000 (Given - Provider: Kyara Blanco, KENNA) 08 (Not Given - Provider: Vance Swift, RN - Reason: IV Fluids Infusing)2121 (Not Given - Provider: Tiarra Ross, KENNA - Reason: IV Fluids Infusing) 0854 (Given - Provider: Vance Swift, RN) PRN Medication Order 01/31/2025 02/01/2025 02/02/2025 [...] Daugherty RN)0854 (Given - Provider: Laura Urrutia, RN)2021 (Given - Provider: Dorothy Ayers, KENNA) 0916 (Given - Provider: Siomara Flores, KENNA)1948 [...] 2022 (Given - Provider: Dorothy Ayers RN) 1948 (Given - Provider: Dorothy Ayers RN) insulin [...] Faby Daugherty RN)2021 (Given - Provider: Dorothy Ayers RN) 194 [...] Ayers RN) 0916 (Given - Provider: Siomara Flores RN)1948 (Given - Provider: Dorothy Ayers RN) 0751 [...] L 0816 (New Bag - Provider: Laura Urrutia RN) 0917 (New Bag - Provider: Siomara [...] Oral, 3 times daily, First dose on 03/22/25 at 2115, Maximum dose of acetaminophen is 4000 mg from all sources in 24 hours. 2130 (Given - Provider: Laisha Davis RN) 0915 (Given - Provider: Sonja Domingo, RN)1334 (Given - Provider: Sonja Domingo, RN)203 (Given - Provider: Laisha Davis RN) 0858 (Given - Provider: Sonja Domingo, RN)1246 (Given - Provider: Sonja Domingo, RN) apixaban (Eliquis) tablet 5 mg 5 mg, Oral, 2 times daily, First dose on Sat03/21/25 at 2100, Anticoagulant 0900 (Dose Auto Held - Provider: Raffi Paulino MD)2100 (Dose Auto Held - Provider: Raffi Paulino MD) 0733 (Unheld by provider - Provider: Brice Mota MD)0914 (Given - Provider: Sonja Domingo, KENNA)2030 (Given - Provider: Laisha Davis RN) 0858 (Given - Provider: Sonja Domingo RN) atorvastatin (Lipitor) tablet 20 mg 20 mg, Oral, Nightly, First dose on 03/20/25 at 2100 2031 (Given - Provider: Laisha Davis RN) 2030 (Given - Provider: Laisha Davis RN) cyanocobalamin (Vitamin B-12) tablet 1,000 mcg 1,000 mcg, Oral, Daily, First dose on Sat03/24/25 at 1115 1245 (Given - Provider: Sonja Domingo RN) gabapentin (Neurontin) capsule 300 mg 300 mg, Oral, 2 times daily, First dose on 03/20/25 at 2100 0847 (Given - Provider: Negra Will RN)2031 (Given - Provider: Laisha Davis RN) 0915 (Given - Provider: Sonja Domingo RN)2030 (Given - Provider: Laisha Davis RN) 0858 (Given - Provider: Sonja Domingo RN) insulin glargine (Lantus) injection 26 Units 26 Units, SubCUTAneous, Nightly, First dose on Sat03/20/25 at 2100 2050 (Given - Provider: Laisha Davis RN) [...] Will RN) 0916 (Given - Provider: Sonja Domingo RN)1253 (Given - Provider: Sonja Domingo RN)1821 (Given - Provider: Sonja Domingo RN) 0858 (Given - Provider: Sonja Domingo RN)1255 (Given - Provider: Sonja Domingo RN)1700 (Canceled Entry - Provider: Automatic Discharge [...] Units 0916 (Given - Provider: Negra Will, KENNA) Lactobacillus 0.05-0.05 MG 4 tablet 4 tablet, Oral, Daily, First dose on 03/20/25 at 1830 0853 (Given - Provider: Negra Will, KENNA) 0932 (Given - Provider: Sonja Domingo, KENNA) 0903 (Given - Provider: Sonja Domingo, KENNA) levothyroxine (Synthroid, Levoxyl) tablet 25 mcg 25 mcg, Oral, Daily before breakfast, First dose on Sat03/21/25 at 0600 0605 (Given - Provider: Tanika Gutierrez RN) 0530 (Given - Provider: Laisha Davis, KENNA) 0525 (Given - Provider: Laisha Davis RN) metoprolol succinate XL (Toprol-XL) 24 hr tablet 50 mg 50 mg, Oral, 2 times daily, First dose on Sat03/24/25 at 1415, Do not crush or chew. 1415 (Given - Provider: Sonja Domingo, KENNA) metoprolol tartrate (Lopressor) tablet 25 mg (CANCELED) 25 mg, Oral, Every 8 hours, First dose (after last modification) on 03/21/25 at 1700 0117 (Given - Provider: Taniak Gutierrez RN)0847 (Given - Provider: Negra Will, KENNA)1729 (Given - Provider: Negra Will, KENNA) 0129 (Given - Provider: Laisha Davis RN)0915 (Given - Provider: Sonja Domingo, RN)1631 (Given - Provider: Sonja Domingo, RN) 0114 (Given - Provider: Laisha Davis RN)0858 (Given - Provider: Sonja Domingo, RN) piperacillin-tazobactam (Zosyn) 4,500 mg in sodium chloride 0.9 % 100 mL IVPB Mini-Bag Plus (CANCELED) 4,500 mg, IntraVENous, at 33.3 mL/hr, Administer over 3 Hours, Every 6 hours, First dose (after last reorder) on [place] 03/21/25 at 2000, Mini-Bag Plus bag, Suspected [...] RN)0921 (New Bag - Provider: Sonja Domingo, KENNA)1221 (Stopped - Provider: Sonja Domingo, RN)1334 (New Bag - Provider: Sonja Domingo, RN)1636 (Stopped - Provider: Sonja Domingo, RN)2030 (New Bag - Provider: Laisha Davis RN)2333 (Stopped - Provider: Laisha Davis RN) 0114 (New Bag - Provider: Laisha Davis RN)0419 (Stopped - Provider: Laisha Davis RN)0859 (New Bag - Provider: Sonja Domingo, RN)1159 (Stopped - Provider: Sonja Domingo, KENNA) trospium (Sanctura) tablet 20 mg 20 mg, Oral, Daily before breakfast, First dose on 03/21/25 at 0600, Substituted for oxybutynin (DITROPAN); fesoterodine (TOVIAZ); darifenacin (ENABLEX); solifenacin (VESICARE); tolterodine IR (DETROL); tolterodine ER (DETROL LA). Give one hour before meals. 06 (Given - Provider: Tanika Gutierrez RN) 0530 (Given - Provider: Laisha Davis RN) 05 (Given - Provider: Laisha Davis RN) vancomycin (Vancocin) 1,000 mg in sodium chloride 0.9 % 250 mL IVPB (Vial Mate) (CANCELED) 1,000 mg, IntraVENous, at 166.7 mL/hr, Administer over 90 Minutes, Every 24 hours, First dose on 03/22/25 at 2000, Vial Mate, Suspected Indication (Select all that apply): Skin and Soft Tissue Infection, Sepsis of Unknown Etiology 2026 (Given - Provider: Laisha Davis RN) Continuous Medication Order 03/22/2025 03/23/2025 03/24/2025 lactated Ringer's infusion (CANCELED) 75 mL/hr, IntraVENous, Continuous, Starting on 03/21/25 at 1845, For 1 day 1349 (New [...] 24 hours. 0117 (Given - Provider: Tanika Gutierrez, KENNA) dextrose 5 % infusion 100 mL/hr, IntraVENous, [...] specifically ordered. 09 (Given - Provider: Sonja Domingo RN) HYDROmorphone (Dilaudid) injection 0.5 mg (CANCELED) [...] ordered. 0707 (Given - Provider: Tanika Gutierrez, RN) melatonin tablet 3 mg 3 mg, Oral, Nightly PRN, sleep, Starting on 03/22/25 at 1539 metoprolol tartrate (Lopressor) injection 5 mg 5 mg, IntraVENous, Every 5 min PRN, tachycardia, sustained HR >120, message attending prior to administration, Starting on 03/21/25 at 1518 1010 (Given - Provider: Sonja Domingo RN) naloxone (Narcan) injection 0.4 mg 0.4 mg, [...] moderate pain (4-6), Starting on 03/20/25 at 2058 0916 (Given - Provider: Negra Will, KENNA)1331 (See Alternative - Provider: Negra Will RN)1728 (Given - Provider: Negranayeli Will RN) 0530 (See Alternative - Provider: Laisha Davis RN)1334 (See Alternative - Provider: Sonja Domingo, RN)1848 (See Alternative - Provider: Sarkis Serrato, KENNA) 0525 (See Alternative - Provider: Laisha Davis RN)1411 (See Alternative - Provider: Sonja Domingo, RN) oxyCODONE (Roxicodone) immediate release tablet 5 mg(Linked Group 5) 5 mg, Oral, Every 4 hours PRN, severe pain (7-10), Starting on 03/20/25 at 8 0916 (See Alternative - Provider: Negra Will RN)1331 (Given - Provider: Negra Will RN)1728 (See Alternative - Provider: Negra Will RN) 0530 (Given - Provider: Laisha Davis RN)1334 (Given - Provider: Sonja Domingo, KENNA)1848 (Given - Provider: Sarkis Serrato RN) 0525 (Given - Provider: Laisha Davis RN)1411 (Given - Provider: Sonja Domingo, RN) polyethylene glycol (PEG) 3350 (Miralax) packet 17 g 17 g, Oral, Daily PRN, constipation, Starting on 03/20/25 at 205, 1st line for treatment of constipation - [...] pain (7-10), Starting on 03/20/25 at 2057 Goals (unrecognized section and content) Goals may be documented in a n alternate section FOR RECORDS PERTAINING TO PATIENTS WHO ARE [...] BE BASED ON THE PRIMARY CLINICAL RECORDS. [facility]. provides no warranty or guarantee of the accuracy or completeness of information in this document.
[2025-06-23 08:12] LABS: Hematocrit 40.0 % (37-47); Hemoglobin 13.7 g/dL (12.0-15.0); Mean Corp Hgb Conc 34.3 g/dL (32-36); Mean Corpuscular Volume 89.9 fL (81-99); Mean Platelet Vol. 10.8 fl (6.2-12.0); Platelet Count 223 K/mm3 (150-450); RBC Distribution Width CV 15.8 % (11.6-14.6); RBC Distribution Width SD 52.1 fl (35.1-43.9); Red Blood Count 4.45 M/mm3 (4.2-5.4); White Blood Count 9.2 K/mm3 (4.4-11.0)
[2025-06-23 08:31] LABS: Anion Gap 12 (5-15); BUN 23 mg/dL (4-19); BUN/Creat Ratio 27.5 RATIO (10-20); Calcium,Total 9.1 mg/dL (7.6-11.0); Carbon Dioxide 22.3 mmol/L (21.0-32.0); Chloride 103 mmol/L (98-108); Glucose 115 mg/dL (70-99); Potassium 4.0 mmol/L (3.3-5.1)
== END ==
LOC: OLS.ACH 05:00
PROVIDERS: PCP Internal Medicine; Visit Provider Internal Medicine
DX: R05.1 Acute cough (principal); E11.40 Type 2 diabetes mellitus with diabetic neuropathy, unspecified
CPT/HCPCS: 36415; 80048; 85027

== ENCOUNTER → 2025-08-10 05:00 | Outpatient (REF) | payer MEDICARE, OTHER, SELFPAY ==
[2025-08-10 08:47] LABS: Hematocrit 35.2 % (37-47); Hemoglobin 12.0 g/dL (12.0-15.0); Mean Corp Hgb Conc 34.1 g/dL (32-36); Mean Corpuscular Volume 91.2 fL (81-99); Mean Platelet Vol. 10.6 fl (6.2-12.0); Platelet Count 250 K/mm3 (150-450); RBC Distribution Width CV 14.6 % (11.6-14.6); RBC Distribution Width SD 49.0 fl (35.1-43.9); Red Blood Count 3.86 M/mm3 (4.2-5.4); White Blood Count 8.6 K/mm3 (4.4-11.0)
[2025-08-10 09:03] LABS: AST(SGOT) 17 U/L (<=31); Alanine Aminotransfer ALT/SGPT 9 U/L (<=34); Albumin, Serum 3.4 g/dL (3.4-4.8); Alkaline Phosphatase 61 U/L (35-104); Anion Gap 11 (7-18); BUN 21 mg/dL (4-19); BUN/Creat Ratio 35.4 RATIO (10-20); Calcium,Total 8.9 mg/dL (7.6-11.0); Carbon Dioxide 24.3 mmol/L (20.0-29.0); Chloride 107 mmol/L (96-106); Globulin 3.1 g/dL (2.2-4.2); Glucose 110 mg/dL (70-99); Potassium 3.3 mmol/L (3.5-5.1)
== END ==
LOC: OLS.ACH 05:00
PROVIDERS: PCP Internal Medicine; Visit Provider Internal Medicine
DX: U07.1 COVID-19 (principal)
CPT/HCPCS: 36415; 80053; 85027